=== PATIENT | female | born 1955 | race Caucasian/White ===

== ENCOUNTER → 2019-08-16 06:49 | Outpatient (CLI) | payer MEDICARE, SELFPAY ==
[2019-08-08 06:34] VITALS: BMI 18.2
--- NOTE | 2019-08-16 06:52 | CT_ITS ---
STUDY: LOW DOSE CT LUNG CANCER SCREENING REASON FOR EXAM: Female, 64 years old. 1.5 packs per day for 40 years smoking history, screening RADIATION DOSAGE (If Supplied By Facility): CTDIvol = ( 2.01 ) mGy, DLP = ( 72.48 ) mGycm TECHNIQUE: No contrast was administered. Low dose technique was utilized (average mAS-38 and kVp 120). 1.25 mm axial source images with a slice interval of 1.25-mm were reconstructed in lung windows. 2.5 mm axial source images with a slice interval of 2.5-mm were reconstructed in lung windows. 5.0 mm axial source images with a slice interval of 5.0-mm were reconstructed in soft tissue windows. Nodule measured using lung windows on PACS and/or independent workstation with automated measurement of minimum and maximum diameter. Nodule measurement reported as average diameter rounded to the nearest whole number. Growth is defined as an increase ins size of greater than 1.5 mm. COMPARISON: None. NODULES: Group of micronodules in the lateral superior right lower lobe evident on image 123 with mildly irregular margins and nodules measuring approximately 3-4 mm. Given continuity with centrilobular structures, may represent focal areas of pneumonitis. 5 mm noncalcified oval-shaped mildly irregular nodule in the right lower lobe on image 131. There is a punctate calcification along the superior border on image 131. Additional pulmonary granulomata (calcified) are identified. No additional noncalcified pulmonary nodules. Emphysema: Moderately extensive multilobar centrilobular emphysema. Endobronchial lesion: None Aorta: Moderate atherosclerosis particularly of the distal, descending thoracic aorta. Coronary arteries: Heavy atherosclerosis. Heart: Normal size Pulmonary artery: Unremarkable unopacified technique. Mediastinal nodes: No mediastinal adenopathy detected. Other chest and abdominal findings: None CT/Low Dose CT Lung Screening IMPRESSION: 1. Lung-RADS category 2 - 5 mm noncalcified nodule in the right lower lobe. Continue annual screening with LDCT in 12 months. 2. Group of bronchovascular micronodules of the right lower lobe (measuring 3 to 4 mm) more typical of pneumonitis/bronchiolitis/infection rather than neoplasm. IMPORTANT NOTES FOR USE: ACR Lung-RADS Version 1.0 Assessment Categories Release Date: February 17, 2014 Category: Coded 0-4 bases on nodule(s) with highest degree of suspicion. Negative screen is defined as categories 1 and 2; a positive screen is defined as categories 3 and 4. Category 3 and 4A nodules that are unchanged on interval CT should be coded as category 2, and individuals returned to screening in 12 months. Category 4X: Category 3 or 4 nodules with additional imaging findings that increase the suspicion of lung cancer, such as spiculation, GGN that doubles in size in 1 year, enlarged lymph notes, etc. Category Modifiers: S (significant finding unrelated to lung cancer) and C (prior history of treated lung cancer) may be added to the 0-4 Lung-RADS Electronically Signed: Flaquito Garcia MD (Brooks) at 14:19 EDT , Service support ,
--- NOTE | 2019-08-16 12:00 | PFT ---
INTRODUCTION: The patient is a 64-year-old female that presents for pulmonary function studies secondary to a diagnosis of tobacco dependency. Respiratory therapy reports good patient effort. Bronchodilators were used during testing. INTERPRETATION: Forced expiration spirometry demonstrates the presence of a mild large airways obstructive ventilatory defect. There was no significant response to aerosolized bronchodilators. Spirograms are of good quality and do not plateau indicating slow emptying of the lungs. Body plethysmography was performed and reveals lung volumes to be within normal limits. Diffusing capacity by single breath CO is preserved at 80% of predicted. IMPRESSION: Irreversible mild large airways obstructive ventilatory defect with preserved lung volumes and diffusing capacity.
== END ==
PROVIDERS: Family Provider Nurse Practitioner Family; PCP Nurse Practitioner Family; Referring Provider Internal Medicine Critical Care Medicine; Visit Provider Internal Medicine Critical Care Medicine
DX: J44.9 Chronic obstructive pulmonary disease, unspecified (principal); F17.210 Nicotine dependence, cigarettes, uncomplicated
CPT/HCPCS: 94060; 94726; 94729; G0297

== ENCOUNTER → 2019-08-19 | Outpatient (CLI) | payer MEDICARE, SELFPAY ==
[2019-08-08 06:34] VITALS: BMI 18.2
[2019-08-19 09:39] VITALS: PULSE 56; PULSE 58; PULSE 75; PULSE 77; PULSE 79; PULSE 82; PULSE 83; O2SAT 93; O2SAT 94; O2SAT 95; O2SAT 96
--- NOTE | 2019-08-19 13:24 | WT_ITS ---
PSN 6 Minute Walk Test - 6 Minute Walk Test 6 Minute Walk Test: 6 Minute Walk Test PSN:6-Minute Walk Test Start: 08/19/19 09:39 Freq: Status: Active Protocol: RESP.6MINW Document 08/19/19 09:39 [facility] (Rec: 08/19/19 09:44 [facility] [id number]) 6 Minute Walk Test Date Performed 08/19/19 Time Performed 09:15 Height 5 ft 4 in Weight: 49.442 kg Weight in Pounds 109.[address]: Eleazar Valle Assistive device used: None Pre-test Oxygen Delivery Method Room Air Pulse Ox (%) 96 Pulse Rate (60-100 beats/min) 56 L Dyspnea Deb Scale (0-10) 3 Reported Symptoms Increased Work of Breathing 1st minute Oxygen Delivery Method Room Air Pulse Ox (%) 95 Pulse Rate (60-100 beats/min) 79 Dyspnea Deb Scale (0-10) 3 Number of Rests Taken 0 Reported Symptoms Increased Work of Breathing 2nd minute Oxygen Delivery Method Room Air Pulse Ox (%) 94 Pulse Rate (60-100 beats/min) 75 Dyspnea Deb Scale (0-10) 3 Number of Rests Taken 0 Reported Symptoms Increased Work of Breathing 3rd minute Oxygen Delivery Method Room Air Pulse Ox (%) 94 Pulse Rate (60-100 beats/min) 77 Dyspnea Deb Scale (0-10) 3 Number of Rests Taken 0 Reported Symptoms Increased Work of Breathing 4th minute Oxygen Delivery Method Room Air Pulse Ox (%) 93 Pulse Rate (60-100 beats/min) 83 Dyspnea Deb Scale (0-10) 3 Number of Rests Taken 0 Reported Symptoms Increased Work of Breathing 5th minute Oxygen Delivery Method Room Air Pulse Ox (%) 94 Pulse Rate (60-100 beats/min) 82 Dyspnea Deb Scale (0-10) 3 Number of Rests Taken 0 Reported Symptoms Increased Work of Breathing 6th minute Oxygen Delivery Method Room Air Pulse Ox (%) 95 Pulse Rate (60-100 beats/min) 79 Dyspnea Deb Scale (0-10) 4 Number of Rests Taken 0 Reported Symptoms Increased Work of Breathing Post-test Oxygen Delivery Method Room Air Pulse Ox (%) 95 Pulse Rate (60-100 beats/min) 58 L Dyspnea Deb Scale (0-10) 3 Reported Symptoms Increased Work of Breathing Full Laps Walked 17 Partial Lap, Number of Tiles Walked 45 Total Distance Walked (ft) 1048 - Interpretation Interpretation: The patient was able to ambulate 1048 feet over the course of 6 minutes on room air with no assistive devices or breaks. The patient did desaturate slightly to a della of 93%. No significant tachycardia was noted. These findings are consistent with a normal size tolerance. - Recommendations Recommendations: No supplemental oxygen is indicated at this time.
== END | disposition home or self-care (01) ==
PROVIDERS: Family Provider Nurse Practitioner Family; PCP Nurse Practitioner Family; Referring Provider Internal Medicine Critical Care Medicine; Visit Provider Internal Medicine Critical Care Medicine
DX: J44.9 Chronic obstructive pulmonary disease, unspecified (principal); F17.210 Nicotine dependence, cigarettes, uncomplicated
CPT/HCPCS: 94618

== ENCOUNTER → 2021-01-25 12:37 | Outpatient (CLI) | payer MEDICARE, SELFPAY ==
[2020-12-23 12:52] VITALS: BMI 18.7
--- NOTE | 2021-01-26 06:53 | PFT ---
INTRODUCTION: The patient is a 65-year-old female that presents for pulmonary function studies secondary to a diagnosis of COPD. Respiratory therapy reports good patient effort. Bronchodilators were used during testing. INTERPRETATION: Forced expiration spirometry demonstrates the presence of a mild large airways obstructive ventilatory defect. There was no significant response to aerosolized bronchodilators. Spirograms are of good quality but do not plateau indicating slow emptying of the lungs. Body plethysmography was performed and revealed an elevated RV to 151% of predicted, indicative of underlying air trapping. Diffusing capacity by single breath CO is mildly reduced at 65% of predicted. IMPRESSION: Irreversible mild large airways obstructive ventilatory defect with associated air trapping and mild reduction in diffusing capacity.
== END ==
PROVIDERS: PCP Nurse Practitioner Family; Referring Provider Internal Medicine Critical Care Medicine; Visit Provider Internal Medicine Critical Care Medicine
DX: J44.9 Chronic obstructive pulmonary disease, unspecified (principal)
CPT/HCPCS: 94060; 94726; 94729

== ENCOUNTER → 2021-01-26 11:06 | Outpatient (CLI) | payer MEDICARE, SELFPAY ==
[2020-12-23 12:52] VITALS: BMI 18.7
[2021-01-26 11:15] VITALS: PULSE 70; PULSE 72; PULSE 76; PULSE 81; PULSE 82; PULSE 83; O2SAT 94; O2SAT 95; O2SAT 96; O2SAT 97
--- NOTE | 2021-01-26 12:45 | PCM.PSN.6M ---
PSN 6 Minute Walk Test - 6 Minute Walk Test 6 Minute Walk Test: 6 Minute Walk Test PSN:6-Minute Walk Test Start: 01/26/21 11:33 Freq: Status: Active Protocol: RESP.6MINW Document 01/26/21 11:15 [facility] (Rec: 01/26/21 11:36 [id number]) 6 Minute Walk Test Date Performed 01/26/21 Time Performed 11:15 Height 5 ft 4 in Weight: 109 lb Weight in Pounds 109.[address]: Eleazar Valle FIO2 (% Oxygen) 21 Assistive device used: None Pre-test Oxygen Delivery Method Room Air Pulse Ox (%) 96 Pulse Rate (60-100 beats/min) 70 Dyspnea Deb Scale (0-10) 0 Exertion Deb Scale (6-20) 6 1st minute Oxygen Delivery Method Room Air Pulse Ox (%) 95 Pulse Rate (60-100 beats/min) 76 2nd minute Oxygen Delivery Method Room Air Pulse Ox (%) 95 Pulse Rate (60-100 beats/min) 83 3rd minute Oxygen Delivery Method Room Air Pulse Ox (%) 94 Pulse Rate (60-100 beats/min) 83 4th minute Oxygen Delivery Method Room Air Pulse Ox (%) 95 Pulse Rate (60-100 beats/min) 76 5th minute Oxygen Delivery Method Room Air Pulse Ox (%) 96 Pulse Rate (60-100 beats/min) 82 6th minute Oxygen Delivery Method Room Air Pulse Ox (%) 96 Pulse Rate (60-100 beats/min) 81 Post-test Oxygen Delivery Method Room Air Pulse Ox (%) 97 Pulse Rate (60-100 beats/min) 72 Dyspnea Deb Scale (0-10) 1 Exertion Deb Scale (6-20) 11 Full Laps Walked 16 Partial Lap, Number of Tiles Walked 0 Total Distance Walked (ft) 944 - Interpretation Interpretation: The patient ambulated 944 feet over the course of 6 minutes beginning on room air without assistive devices or breaks. Pretesting oxygen saturation was noted to be 96% on room air. With ambulation, the della oxygen saturation was 94%. There was no significant exertional oxygen desaturation. - Recommendations Recommendations: There is no indication for the use of supplemental oxygen at this time.
== END ==
PROVIDERS: PCP Nurse Practitioner Family; Referring Provider Internal Medicine Critical Care Medicine; Visit Provider Internal Medicine Critical Care Medicine
DX: J44.9 Chronic obstructive pulmonary disease, unspecified (principal); F17.210 Nicotine dependence, cigarettes, uncomplicated
CPT/HCPCS: 94618

== ENCOUNTER → 2021-06-23 15:56 | Outpatient (CLI) | payer MEDICARE, SELFPAY ==
[2020-12-23 12:52] VITALS: BMI 18.7
--- NOTE | 2021-06-23 16:02 | CT_ITS ---
STUDY: LOW DOSE CT LUNG CANCER SCREENING REASON FOR EXAM: Female, 66 years old. 1 pack per day smoker x46 years RADIATION DOSAGE (If Supplied By Facility): CTDIvol = ( 2.01 ) mGy, DLP = ( 67.71 ) mGycm TECHNIQUE: No contrast was administered. Low dose technique was utilized (average mAS-38 and kVp 120). 1.25 mm axial source images with a slice interval of 1.25-mm were reconstructed in lung windows. 2.5 mm axial source images with a slice interval of 2.5-mm were reconstructed in lung windows. 5.0 mm axial source images with a slice interval of 5.0-mm were reconstructed in soft tissue windows. Nodule measured using lung windows on PACS and/or independent workstation with automated measurement of minimum and maximum diameter. Nodule measurement reported as average diameter rounded to the nearest whole number. Growth is defined as an increase ins size of greater than 1.5 mm. COMPARISON: 08/16/2019 FINDINGS: There is underlying emphysema with chronic interstitial changes in both lung lr. Nonspecific pleural thickening noted in the apices and in both hemithoraces. There is no organized infiltrate or effusion. Stable micronodules noted in the right lower lobe unchanged from the previous study. These measure between 3 and 4 mm. Since they are unchanged over a two-year span, no specific follow-up is needed. There are calcified coronary vessels Bony structures show extensive degenerative change CT/Low Dose CT Lung Screening IMPRESSION: Lung-RADS category 2 - Continue annual screening with LDCT in 12 months. IMPORTANT NOTES FOR USE: ACR Lung-RADS Version 1.1 Assessment Categories Release Date: 2018 Category: Coded 0-4 bases on nodule(s) with highest degree of suspicion. Negative screen is defined as categories 1 and 2; a positive screen is defined as categories 3 and 4. Category 3 and 4A nodules that are unchanged on interval CT should be coded as category 2, and individuals returned to screening in 12 months. Category 4X: Category 3 or 4 nodules with additional imaging findings that increase the suspicion of lung cancer, such as spiculation, GGN that doubles in size in 1 year, enlarged lymph notes, etc. Category Modifiers: S (significant finding unrelated to lung cancer) Electronically Signed: Aleksandr Levine MD at 17:37 EDT , Service support ,
== END ==
PROVIDERS: PCP Nurse Practitioner Family; Referring Provider Internal Medicine Critical Care Medicine; Visit Provider Internal Medicine Critical Care Medicine
DX: F17.210 Nicotine dependence, cigarettes, uncomplicated (principal); Z12.2 Encounter for screening for malignant neoplasm of respiratory organs
CPT/HCPCS: 71271

== ENCOUNTER 2025-07-16 03:07 | Inpatient (IN) | payer MEDICARE, SELFPAY ==
[2025-07-16] VITALS (54 sets, daily range): BP systolic 78–264; BP diastolic 48–152; PULSE 55–144; RESP 11–32; TEMP 35.9–38; O2SAT 90–100; BMI 20.2; BMI 20.1
--- NOTE | 2025-07-16 03:09 | EKG12_ITS ---
Test Reason : SOB Blood Pressure : */* mmHG Vent. Rate : 105 BPM Atrial Rate : 105 BPM P-R Int : 148 ms QRS Dur : 78 ms QT Int : 352 ms P-R-T Axes : 89 82 92 degrees QTcB Int : 465 ms Sinus tachycardia with Premature ventricular complexes or Fusion complexes Nonspecific ST abnormality Abnormal ECG Confirmed by David Colindres ([id number]), supervising editor trailer PETER COWAN ([id number]) on 07/17/2025 6:00:43 AM Referred By: ELIZABETH Confirmed By: David Colindres
--- NOTE | 2025-07-16 03:09 | ED.VIS.DYS ---
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 Depression Essential hypertension Myocardial fibrosis Non-rheumatic mitral regurgitation Pulmonary hypertension Pure hypercholesterolemia Home Medications ?Medication ?Instructions ?Recorded ?Last Taken ?Type aspirin 81 mg tablet,delayed 81 mg PO DAILY 07/08/19 Unknown History release (Adult Low Dose Aspirin) atorvastatin 40 mg tablet 40 mg PO QHS PRN 07/08/19 Unknown History nitroglycerin 0.4 mg sublingual 0.4 mg sublingual Q5-15M PRN chest 07/08/19 Unknown History tablet pain oxybutynin chloride 10 mg 10 mg PO DAILY 07/08/19 Unknown History tablet,extended release 24 hr venlafaxine 75 mg tablet 75 mg PO BID 07/08/19 Unknown History albuterol sulfate 90 mcg/actuation 2 puff inhalation Q4H PRN 12/23/20 Unknown Rx aerosol inhaler (Ventolin HFA) shortness of breath or wheezing #8.5 grams brimonidine 0.2 % eye drops ml ophthalmic (eye) 06/16/21 Unknown History dorzolamide 2 % eye drops 1 drp ophthalmic (eye) TID 06/16/21 Unknown History lisinopril 20 mg tablet 20 mg PO DAILY #90 tabs 06/16/21 Unknown Rx Allergy/AdvReac Type Severity Reaction Status Date / Time No Known Allergies Allergy Unverified 06/16/21 14:41 Family History Mother Diabetes Surgical History History of coronary artery stent placement (01/02/17) History of hysterectomy Social History Smoking Status: Current every day smoker tobacco type: cigarettes Tobacco: How many years used: 46 second hand exposure: Yes alcohol intake: never substance use type: does not use caffeine: Yes Type: coffee MDM MDM MDM Narrative Medical decision making narrative: HISTORY OF PRESENT ILLNESS: Chief complaint: Shortness of breath 70-year-old female history of COPD, pulm hypertension, anemia, hypertension, hypertrophic cardiomyopathy, myocardial fibrosis, CAD status post stent presents with shortness of breath. Patient is an extremis and cannot provide reliable history. Per EMS patient was initially 60% on home O2. Per EMS patient got 2 rounds of duo/nebs and 125 mg of solumedrol. REVIEW OF SYSTEMS: Unable to obtain reliable review of system secondary to altered mental status PHYSICAL EXAM: Nursing triage notes reviewed, Vital signs reviewed Constitutional: please see mdm HENT: MMM Eyes: Pupils equal round and reactive to light, Extraocular muscles intact Neck: Positive JVD Lungs: Tight lungs, wheezes/rales throughout, increased work of breathing, severe respiratory distress Heart: Reg fast regular rate Abdomen: Soft, no distention : No CVAT Extremities: No edema Neuro: Groans to painful stimuli, Skin: No rash or lesions noted MEDICAL DECISION MAKING: Chief Complaint: please see HPI External records reviewed: Reviewed prior echocardiogram from 2017 which showed ejection fraction 65%. Reviewed recent hospitalization. Patient was admitted to [facility] from 06/16/2025 until 06/25/2025 for acute on chronic respiratory failure hypoxia. Acute pulmonary edema, NSTEMI, COPD exacerbation. This time patient suffered respiratory failure required mechanical ventilation. Factors affecting care: As per HPI Social determinants of health: none History obtained from others: EMS Consults: Internal Medicine (Dr. Haile) [facility] Narrative: The patient was initially hypertensive blood pressure initially 257/98, tachypneic respirate of 30, and extreme respiratory distress with altered mental status requiring immediate airway intervention in the form endotracheal intubation. Please see below procedure note. I considered the following differential diagnosis: Flash pulmonary edema, COPD exacerbation, ACS, arrhythmia, anemia, COVID, RSV, flu, pneumonia I obtained a broad lab and imaging workup to further determine if the patient was suffering from a life-threatening etiology. Also obtained a CT scan of the head given altered mental status. CTA of the chest given extreme respiratory distress. Also obtained an ABG given requirement for intubation. ALL IMAGES (IF OBTAINED) HAVE BEEN PERSONALLY REVIEWED AND INTERPRETED BY MYSELF. EKG with sinus tachycardia rate of 105, normal axis, normal intervals, no obvious STEMI, occasional PVCs, Patient was noted to continue to be significantly hypertensive raising the specter of flash pulmonary edema. Patient was started on nitroglycerin drip at 100 mcg/min. After approximately 5 minutes on the nitroglycerin drip she continued to be hypertensive and placed out of adequate sedation so she was given 100 mg bolus of propofol, 5 mg bolus of Versed and started on Versed drip. ABG showed significant respiratory acidosis with a pH of 7.058, CO2 of 75 consistent with CO2 retention from likely COPD exacerbation CBC with leukocytosis suggestive of system inflammation, mild anemia, no thrombocytopenia BMP without significant electrolyte disturbances, no SANTO, no sign of endorgan hypoperfusion or metabolic acidosis. Serum glucose elevated BNP elevated consistent with volume overload and heart failure COVID/RSV/flu is negative LFTs with elevation in liver enzymes consistent with likely volume overload from CHF exacerbation Initial troponin elevated consistent with myocardial ischemia is likely a type II demand ischemia given hypoxia significant acidosis initial lactate elevated consistent endorgan hypoperfusion likely secondary to hypoxia Patient remained hypertensive despite propofol drip, nitroglycerin drip. She was given a dose of bicarb given acidosis and given 20 mg IV labetalol. After IV labetalol patient blood pressure crash. Blood pressure was as low as 78 systolic. This quickly rebounded to 140 systolic after discontinuing propofol drip decrease patient's tidal volume slightly. Discussed case with hospitalist Dr. Hess who agreed admit the patient as long as CT scans of head and chest did not show diagnosis that needed transfer to higher level of care. He recommended giving broad-spectrum antibiotics given SIRS and sepsis criteria. Gave vancomycin and Zosyn. Also recommend repeating ABG which was also ordered. CT of the chest was negative for acute PE, thoracic aortic aneurysm. Noted underlying for Zima, superimposed CHF, pneumonitis and bronchitis noted. CT scan of the brain showed no evidence of ICH. Patient is appropriate for admission here at [facility] to intensive care unit. Dr. Hess added on a CT scan of the abdomen pelvis is pending at this time. The procedure was performed by myself. Indications: Acute respiratory distress, altered mental status Procedure Description: Patient was preoxygenated with BiPAP. Patient in supine position. Of note during intubation white frothy pulmonary expectorate was noted in the posterior oropharynx. Use video laryngoscopy with a 4.0 hyperventilated Mac blade to place an 8.0 ET tube through the cords. First pass success. No immediate complications. Post intubation pulse ox was initially 80% but quickly improved to 100%. Post-Procedure Assessment: Tracheal intubation was confirmed with breath sounds auscultated equally bilaterally; appropriate color change with end tidal CO2 detector and waveform capnography. The patient tolerated the procedure well with no immediate complications. The patient and/or family, caregivers express understanding. The patient and/or family, caregivers agrees with the plan. Shared decision making: I will have a discussion with the patient and or visitors regarding risk/benefits of further testing or admission. They will be made aware of of the risk/benefits inherent in this decision they will be given the opportunity to voice understanding. Total critical care time today provided was at least 60 minutes. This excludes separately billable procedures. Critical care time (if documented) is secondary to the patient having high probability of clinically significant/life threatening deterioration in the patient's condition which required my urgent intervention. Impression: 1. Acute hypoxic respiratory failure 2. Hypertensive emergency 3. Flash pulmonary edema 4. COPD exacerbation Dispo: Admit to ICU This note was generated with [employer] dictation software. It may contain incorrect words, spelling, and punctuation that were not noted in review of the chart prior to signing. Discharge Plan Triage Chief Complaint: Shortness of Breath ED Provider: Bernardo Sharif Dx/Rx/DC Orders Prescriptions: No Action nitroglycerin 0.4 mg tablet, sublingual 0.4 mg SUBLINGUAL Q5-15M PRN (Reason: chest pain) aspirin [Adult Low Dose Aspirin] 81 mg tablet,delayed release (DR/EC) 81 mg PO DAILY atorvastatin 40 mg tablet 40 mg PO QHS PRN venlafaxine 75 mg tablet 75 mg PO BID oxybutynin chloride 10 mg tablet extended release 24hr 10 mg PO DAILY albuterol sulfate [Ventolin HFA] 90 mcg/actuation HFA aerosol inhaler 2 puff INHALATION Q4H PRN (Reason: shortness of breath or wheezing) Qty: 8.5 6RF brimonidine 0.2 % drops ophthalmic (eye) dorzolamide 2 % drops 1 drp ophthalmic (eye) TID lisinopril 20 mg tablet 20 mg PO DAILY Qty: 90 3RF Primary Care Provider: Melissa Ozuna NP Referrals: Melissa Ozuna NP, [employer] [Primary Care Provider, Family Practice] Print Language: Vietnamese
--- NOTE | 2025-07-16 03:25 | CT_ITS ---
EXAM: NONCONTRAST CT SCAN OF THE HEAD CLINICAL HISTORY: AMS COMPARISON: None TECHNIQUE: Serial axial series through the head were obtained without contrast. 2-D coronal and sagittal reformats were then obtained. DLP = 745 mGy-cm FINDINGS: Brain: There is no acute large territorial infarct, intracranial hemorrhage, midline shift or mass effect. There are atherosclerotic vascular calcifications involving the bilateral carotid siphons. The sella and pineal gland regions appear unremarkable. There is low-density in the deep white matter on the right and left, and in the right occipital lobe consistent with chronic ischemic change. There is no evidence of cerebellar tonsillar herniation. Ventricles: There is no acute hydrocephalus. Basilar cisterns are patent. Paranasal sinuses: Well-aerated Mastoid air cells: Well-aerated. Calvarium: The bony calvarium is intact. Orbits: The bilateral globes are symmetric, without retrobulbar compressive mass lesion or hemorrhage. CT/Brain/Head without Contrast IMPRESSION: There is low-density in the deep white matter on the right and left, and in the right occipital lobe consistent with chronic ischemic change. No acute intracranial pathology. Consider MRI with diffusion scan, or CT perfu savita to exclude an acute component. Reading Location: [facility]
--- NOTE | 2025-07-16 03:25 | CT_ITS ---
PROCEDURE: CTA CHEST W/WO CONTRAST 07/16/2025 REASON FOR EXAM: HYPOXIA TECHNIQUE: Procedure Code: [id number] Modality: CT Procedure: CTA CHEST W/WO CONTRAST Multiplanar Sagittal and Coronal images were obtained. CONTRAST: Isovue 370 VOLUME: 100 mL One or more dose reduction techniques were used (e.g., Automated exposure control, adjustment of the mA and/or kV according to patient size, use of iterative reconstruction technique). RADIATION DOSE SUMMARY: CTDlvol: 25.23 mGy DLP: 345.21 mGycm COMPARISON: No recent studies, previous chest CT from 2020 # of known CTs in the past 12 months: 0 # of known Cardiac Nuclear Medicine Studies in the past 12 months: 0 FINDINGS: Patient is intubated, tip of the ET tube is in the right mainstem bronchus and should be retracted 3-4 cm. NG tube tip is in the body of the stomach The pulmonary arteries enhance avidly. No evidence of low-density filling defect to suspect PE. Peripheral calcifications are noted in the thoracic aorta no demonstrated aneurysm I can not evaluate for dissection due to lack of IV contrast within the majority of the thoracic aorta. There are calcified coronary vessels. Lung windows show underlying emphysema with superimposed interstitial edema and chronic interstitial changes with free-flowing bilateral pleural effusions, and bibasilar atelectasis with diffuse peribronchial thickening. Findings suggest a combination of CHF and superimposed bronchitis and pneumonitis. The soft tissue windows show a normal-appearing thyroid gland. No suspicious axillary, mediastinal or perihilar adenopathy. Bony structures show degenerative change. Limited cuts through the upper abdomen show diffuse atherosclerotic calcifications and nonobstructing bilateral renal stones. CT/CTA Chest W/WO Contrast IMPRESSION: No demonstrated PE, or thoracic aortic aneurysm Underlying emphysema with superimposed CHF, pneumonitis, bronchitis, free-flowi ng bilateral pleural effusions and bibasilar atelectasis ETT tip is in the right mainstem bronchus and should be retracted 3-4 cm, NG tu be tip in satisfactory position No suspicious adenopathy Degenerative bony changes [place] Alert: ET tube tip in the SADAF The critical findings in the findings and impression above were relayed directl y by me by telephone to Bernardo Sharif on 07/16/2025 at 6:56 am with readback verification. Reading Location: [id number]
[2025-07-16] MEDS: fentaNYL 100 MCG/2 ML Ampul IV ×2 (03:35→06:38)
[2025-07-16 03:46] LABS: Hematocrit 37.9 % (37-47); Hemoglobin 11.6 g/dL (12.0-15.0); Immature Granulocytes Count 0.380 X10^3/uL (0.0-0.0); Mean Corp Hgb Conc 30.6 g/dL (32-36); Mean Corpuscular Volume 95.9 fL (81-99); Mean Platelet Vol. 9.7 fl (6.2-12.0); NRBC Flagged by Analyzer 0 % (0-5); POSITIVE DIFFERENTIAL YES; Platelet Count 411 K/mm3 (150-450); RBC Distribution Width CV 14.6 % (11.6-14.6); RBC Distribution Width SD 51.3 fl (35.1-43.9); Red Blood Count 3.95 M/mm3 (4.2-5.4); White Blood Count 13.1 K/mm3 (4.4-11.0)
--- OUTSIDE RECORDS SUMMARY | 2025-07-16 03:46 | XMS RPT_ITS | CCD ---
Author Organization [facility] Informat ion Partnership TRANSPLANT IMMUNOLOGIST [facility] Care Team Providers Care Real Estate Management Specialist Name Role Phone Opal Brambila Alpa Unavailable Unavailable FERCHO VILLASEÑOR Primary Care Physician Marissa Rounding Nurse, Amaury Unavailable Barb Ernandez Unavailable Unavailable Elvin Blanc PA-C Primary Care Provider Fercho Villaseñor DO Unavailable JACK CARMICHAEL DO Attending Unavailable JACK CARMICHAEL DO Attending Unavailable DO FERCHO VILLASEÑOR Primary Care Unavailab radha NUR MD, BRONWYN Consulting Unavailable RYAN PERERA Attending Unavailable ANNIE PAREDES, JHONNY Admitting Unavailable RYAN PERERA Consulting Unavailable DIEUDONNE PAREDES, ROSINA Consulting Unavailable CEZAR PAREDES, TONG Consulting Unavailable Marizol MANAGER MARIT[employer]PUTTY GLAZER, Susan B Primary Care Provider RICKY JOHNSON-APRIL, ALFONSO Lora Primary Care Physician ALFONSO OZUNA Consulting Unavailable ASTRID ROBERT MD Admitting UnavailASTRID Navarro MD Attending UnavailASTRID Navarro MD Primary Care Unavailabl e PROVIDER, UNKNOWN Consulting Unavailable ALFONSO OZUNA Consulting Unavailable NANCY RIVAS MD Attending Unavailable NANCY RIVAS MD Primary Care Unavailable NANCY RIVAS MD Admitting Unavailable PROVIDER, UNKNOWN Consulting Unavailable ALFONSO OZUNA Referring Unavailable ALFONSO OZUNA Consulting Unavailable NANCY RIVAS MD Attending Unavailable NANCY RIVAS MD Primary Care Unavailable NANCY RIVAS MD Admitting Unavailable PROVIDER, UNKNOWN Consulting Unavailable RICKY, ALFONSO Consulting Unavailable ASTRID ROBERT MD Attending Unavailabl ASTRID Moran MD Primary Care Unavailabl e ASTRID ROBERT MD Admitting Unavailabl e PROVIDER, UNKNOWN Consulting Unavailable RICKY, ALFONSO Consulting Unavailable RICKY, ALFONSO Referring Unavailable KRYSTIAN STEELE MD Admitting Unavailable KRYSTIAN STEELE MD Attending Unavailable KRYSTIAN STEELE MD Primary Care Unavailable PROVIDER, UNKNOWN Consulting Unavailable RICKY, ALFONSO Consulting Unavailable RICKY, ALFONSO Referring Unavailable JACK CARMICHAEL DO Attending Unavailable JACK CARMICHAEL DO Primary Care Unavailable JACK CARMICHAEL DO Admitting Unavailable PROVIDER, UNKNOWN Consulting Unavailable RICKY, ALFONSO Consulting Unavailable RICKY, ALFONSO Referring Unavailable JACK CARMICHAEL DO Attending Unavailable JACK CARMICHAEL DO Primary Care Unavailable JACK CARMICHAEL DO Admitting Unavailable PROVIDER, UNKNOWN Consulting Unavailable RICKY, ALFONSO Referring Unavailable RICKY, ALFONSO Consulting Unavailable JOSS ARMANDO MD Attending Unavailable JOSS ARMANDO MD Primary Care Unavailable JOSS ARMANDO MD Admitting Unavailable PROVIDER, UNKNOWN Consulting Unavailable RICKY, ALFONSO Consulting Unavailable CLAUDE MEADOWS MD Attending Unavailable CLAUDE MEADOWS MD Primary Care Unavailable CLAUDE MEADOWS MD Admitting Unavailable PROVIDER, UNKNOWN Consulting Unavailable RICKY, ALFONSO Consulting Unavailable ASTRID ROBERT MD Admitting Unavailabl e ASTRID ROBERT MD Attending Unavailabl e ASTRID ROBERT MD Primary Care Unavailabl e PROVIDER, UNKNOWN Consulting Unavailable ANNIE PAREDES, JHONNY Admitting Unavailable ALIS PAREDES, DR LONG Attending Unavailable EMILIO DERAS MD Consulting Unavailable RICKY MANAGER [employer]IT[employer]PUTTY GLAZER, ALFONSO K Primary Care Unavaila joe BRO MD, ROSINA Consulting Unavailable ROXIE MOREJON, JACQUELINE Red Consulting Unavailable ANNIE PAREDES, JHONNY Admitting Unavailable PAPI BAXTER MD Attending Unavailab radha SANTIAGO MD, DR GAN Consulting Unavailable RICKY MANAGER MARITIME[employer]PUTTY GLAZER, ALFONSO K Primary Care Unavaila GENNY Colindres MD Consulting Unavailable ROSINA BRO MD Consulting Unavailable NORMA HAMILTON MD Consulting Unavailable OWEN BERNAL MD Consulting Unavailable SUSAN FONTANA Attending Unavailable SUSAN FONTANA Primary Care Unavailable Allergies Allergy Classification Reported Allergen(s) Allergy Type Date of Onset Reaction(s) Facility (2 sources) NKDA; 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: [NKDA] allergy to substance 7 [employer] Work Phone: [phone] NEGATED: Highlighted row has been ruled out! (1 source) Observed no known allergies at [facility] No Known Allergies 7 propensity to adverse reactions [employer] Work Phone: [phone] Medications Current Medications Medication Drug Class(es) Dates Sig (Normalized) Sig (Original) albuterol MDI (90 mcg/inh) CFC free inhalation aerosol (3 sources) Start: 09-06-2023 take 1 puff(s) by inhalation every four hours as needed for wheezing albuterol MDI (90 mcg/inh) CFC free inhalation aerosol 1 puff(s), Inhalation, q4h, PRN as needed for wheezing, # 8.5 gram(s), 3 Refill(s), Pharmacy: [facility], 157.5, cm, 09/02/23 6:47:00 EST, Height, kg, 09/02/23 6:47:00 EST, Dosing Weight Start Date: 09/06/23 Status: Ordered Medication Dispense Status: Completed Quantity: 8.5 Unit: g Total Allowed Fills: 4 Fills Dispensed: 0 Start: 09-06-2023 take 1 puff(s) by in halation every four hours as needed for wheezing albuterol MDI (90 mcg/inh) CFC free inhalation aerosol 1 puff(s), Inhalation, q4h, PRN as needed for wheezing, # 8.5 gram(s), 3 Refill(s), Pharmacy: [facility], 157.5, cm, 09/02/23 6:47:00 EST, Height, kg, 09/02/23 6:47:00 EST, Dosing Weight Start Date: 09/06/23 Status: Ordered Quantity: 8.5 Unit: g Repeat number: 4 Start: 09-06-2023 take 1 puff(s) by in halation every four hours as needed for wheezing albuterol MDI (90 mcg/inh) CFC free inhalation aerosol 1 puff(s), Inhalation, q4h, PRN as needed for wheezing, # 8.5 gram(s), 3 Refill(s), Pharmacy: [facility], 157.5, cm, 09/02/23 6:47:00 EST, Height, kg, 09/02/23 6:47:00 EST, Dosing Weight Start Date: 09/06/23 Status: Ordered aspirin 81 mg delayed release oral tablet (6 sources) Nonsteroidal Anti-inflammatory Drug Start: 06-25-2025 End: 06-20-2026 aspirin 81 mg oral delayed release tablet Dose : 81 mg = 1 tab(s), Oral, Daily, # 90 tab(s), 3 Refill(s), Pharmacy: [facility], 160, cm, 06/16/25 9:24:00 EDT, Height, kg, 06/16/25 9:24:00 EDT, Dosing Weight Start Date: 06/25/25 Stop Date: 06/20/26 Status: Ordered Medication Dispense Status: Completed Quantity: 90.0 Unit: tab(s) Total Allowed Fills: 4 Fills Dispensed: 0 Start: 01-06-2017 aspirin 81 mg oral delayed release tablet Dose : 81 mg = 1 tab(s), Oral, Daily, 0 Refill(s) Start Date: 09/03/23 Status: Ordered Repeat number: 1 buPROPion hydrochloride 100 mg oral tablet (1 source) Aminoketone Start: 06-23-2011 take 1 dose by mouth once daily Wellbutrin SR Dose : 100 mg =, Oral, qDay, 0 Refill(s) Start Date: 06/23/11 Status: Ordered carvedilol 6.25 mg oral tablet (2 sources) alpha-Adrenergic Cherelle, beta-Adrenergic Cherelle Start: 11-28-2024 Coreg 6.25 mg oral tablet Dose : 6.25 mg = 1 tab(s), Oral, BID, # 180 tab(s), 0 Refill(s), Pharmacy: [facility], 157.5, cm, 11/04/24 11:10:00 EST, Height, kg, 11/04/24 11:10:00 EST, Dosing Weight Start Date: 11/28/24 Status: Ordered Medication Dispense Status: Completed Quantity: 180.0 Unit: tab(s) Total Allowed Fills: 1 Fills Dispensed: 0 Start: 01-22-2024 Coreg 6.25 mg oral tablet Dose : 6.25 mg = 1 tab(s), Oral, BID, # 180 tab(s), 3 Refill(s), Pharmacy: [facility], 157.5, cm, 01/22/24 16:06:00 EDT, Height, kg, 01/22/24 16:06:00 EDT, Dosing Weight Start Date: 01/22/24 Status: Ordered Quantity: 180.0 Unit: tab(s) Repeat number: 4 clopidogrel 75 mg oral tablet (6 sources) [id number] Platelet Inhibitor Start: 06-25-2025 End: 06-20-2026 Plavix 75 mg oral tablet Dose : 75 mg = 1 tab(s), Oral, qDay, # 90 tab(s), 3 Refill(s), Pharmacy: [facility], 160, cm, 06/16/25 9:24:00 EDT, Height, kg, 06/16/25 9:24:00 EDT, Dosing Weight Start Date: 06/25/25 Stop Date: 06/20/26 Status: Ordered Medication Dispense Status: Completed Quantity: 90.0 Unit: tab(s) Total Allowed Fills: 4 Fills Dispensed: 0 Start: 11-09-2024 Plavix 75 mg o ral tablet Dose : 75 mg = 1 tab(s), Oral, qDay, 0 Refill(s) Start Date: 11/09/24 Status: Ordered Repeat number: 1 Start: 01-12-2017 Plavix 75 mg o ral tablet Dose : 75 mg = 1 tab(s), Oral, qDay, # 30 tab(s), 3 Refill(s), Pharmacy: [facility], 157.5, cm, 09/02/23 6:47:00 EST, Height, kg, 09/02/23 6:47:00 EST, Dosing Weight Start Date: 09/06/23 Status: Ordered ezetimibe 10 mg oral tablet (2 sources) Dietary Cholesterol Absorption Inhibitor Start: 05-16-2025 Zetia 10 mg oral ta blet Dose : 10 mg = 1 tab(s), Oral, qDay, appt needed for further refills, # 90 tab(s), 0 Refill(s), Pharmacy: [facility], 157.5, cm, 03/05/25 15:36:00 EDT, Height, kg, 03/05/25 15:36:00 EDT, Dosing Weight Start Date: 05/16/25 Status: Ordered Medication Dispense Status: Completed Quantity: 90.0 Unit: tab(s) Total Allowed Fills: 1 Fills Dispensed: 0 Start: 09-02-2024 Zetia 10 mg or al tablet Dose : 10 mg = 1 tab(s), Oral, qDay, # 90 tab(s), 1 Refill(s), Pharmacy: [facility], 157.5, cm, 02/22/24 16:04:00 EDT, Height, kg, 02/22/24 16:04:00 EDT, Dosing Weight Start Date: 09/02/24 Status: Ordered Quantity: 90.0 Unit: tab(s) Repeat number: 2 30 actuat fluticasone furoate 0.1 mg/actuat / umeclidinium 0.0625 mg/actuat / vilanterol 0.025 mg/actuat dry powder inhaler (2 sources) Anticholinergic, Corticosteroid, beta2-Adrenergic Agonist take 3 puff(s) by inhalation once daily izqymrpmwee-drmfnrzoa-atuqnhhz (Trelegy Ellipta) 100-62.5-25 mcg blister with device Inhale 3 puffs once daily. Active furosemide 40 mg oral tablet (6 sources) Loop Diuretic Sta rt: 5 End : Lasix 40 mg oral tablet Dose : 40 mg = 1 tab(s), Oral, qDay, # 90 tab(s), 1 Refill(s), Pharmacy: [facility], 160, cm, 06/16/25 9:24:00 EDT, Height, kg, 06/16/25 9:24:00 EDT, Dosing Weight Start Date: 06/25/25 Stop Date: 12/22/25 Status: Ordered Medication Dispense Status: Completed Quantity: 90.0 Unit: tab(s) Total Allowed Fills: 2 Fills Dispensed: 0 Start: 11-06-2024 Lasix 20 mg or al tablet Dose : 20 mg = 1 tab(s), Oral, BID, 0 Refill(s) Start Date: 11/06/24 Status: Ordered Repeat number: 1 Start: 09-06-2023 End: 09-18-2023 take 1 tablet by mouth once daily furosemide (Lasix) 20 mg tablet Indications: Congestive heart failure, unspecified HF chronicity, unspecified heart failure type Take 1 tablet (20 mg) by mouth once daily. 90 tablet 3 09/18/2023 Active losartan potassium 50 mg oral tablet (2 sources) Angiotensin 2 Receptor Cherelle Start: 10-03-2024 End: 11-07-2025 losartan 50 mg oral tablet Dose : 50 mg = 1 tab(s), Oral, Daily, # 100 tab(s), 0 Refill(s) Start Date: 11/06/24 Status: Ordered Quantity: 100.0 Unit: tab(s) Repeat number: 1 montelukast 10 mg oral tablet (3 sources) Leukotriene Receptor Antagonist Start: 10-03-2024 End: 04-01-2025 Singulair 10 mg oral tablet Dose : 10 mg = 1 tab(s), Oral, qDay, 0 Refill(s) Start Date: 11/05/24 Status: Ordered Medication Dispense Status: Completed Total Allowed Fills: 1 Fills Dispensed: 0 OXcarbazepine 150 mg oral tablet (1 source) Anti-epileptic Agent Start: 06-23-2011 take 1 dose by mouth once daily at bedtime Trileptal Dose : 150 mg =, Oral, qHS, 0 Refill(s) Start Date: 06/23/11 Status: Ordered 24 hr oxybutynin chloride 10 mg extended release oral tablet (4 sources) Cholinergic Muscarinic Antagonist Start: 11-06-2024 take 1 tablet by mouth every hour, then take 1 tablet by mouth once daily oxybutynin 10 mg/24 hr oral tablet, extended release Dose : 10 mg = 1 tab(s), Oral, qDay, # 30 tab(s), 0 Refill(s) Start Date: 11/06/24 Status: Ordered Medication Dispense Status: Completed Quantity: 30.0 Unit: tab(s) Total Allowed Fills: 1 Fills Dispensed: 0 Start: 01-06-2017 take 1 tablet by santos once daily OXYBUTYNIN CHLORIDE ER 10 MG [id number] One tablet by mouth daily (HOLD) OXYBUTYNIN CHLORIDE [id number] Sharron Nguyen RN microencapsulated potassium chloride 20 meq extended release oral tablet (2 sources) Start: 06-20-2024 Klor-Con M20 o ral tablet, extended release Dose : 20 mEq = 1 tab(s), Oral, BID, # 60 tab(s), 5 Refill(s), Pharmacy: [facility], 157.5, cm, 02/22/24 16:04:00 EDT, Height, kg, 02/22/24 16:04:00 EDT, Dosing Weight Start Date: 06/20/24 Status: Ordered Medication Dispense Status: Completed Quantity: 60.0 Unit: tab(s) Total Allowed Fills: 6 Fills Dispensed: 0 predniSONE 10 mg oral tablet (1 source) Start: 06-25-2025 End: 06-28-2025 predniSONE 10 mg oral tablet Dose : 10 mg = 1 tab(s), Oral, qDay, # 3 tab(s), 0 Refill(s), Pharmacy: [facility], 160, cm, 06/16/25 9:24:00 EDT, Height, kg, 06/16/25 9:24:00 EDT, Dosing Weight Start Date: 06/25/25 Stop Date: 06/28/25 Status: Ordered Medication Dispense Status: Completed Quantity: 3.0 Unit: tab(s) Total Allowed Fills: 1 Fills Dispensed: 0 rosuvastatin calcium 40 mg oral tablet (5 sources) HMG-CoA Reductase Inhibitor Start: 11-05-2024 Crestor 40 mg oral tablet Dose : 40 mg = 1 tab(s), Oral, Daily, 0 Refill(s) Start Date: 11/05/24 Status: Ordered Medication Dispense Status: Completed Total Allowed Fills: 1 Fills Dispensed: 0 Start: 09-06-2023 rosuvastatin 2 0 mg oral tablet Dose : 40 mg = 2 tab(s), Oral, qDay, # 60 tab(s), 3 Refill(s), Pharmacy: [facility], 157.5, cm, 09/02/23 6:47:00 EST, Height, kg, 09/02/23 6:47:00 EST, Dosing Weight Start Date: 09/06/23 Status: Ordered sacubitril 97 mg / valsartan 103 mg oral tablet (3 sources) Angiotensin 2 Receptor Cherelle Start: 05-15-2025 take 1 tablet by mouth twice daily Entresto 97 mg-103 mg oral tablet Dose = 1 tab(s), Oral, BID, # 180 tab(s), 2 Refill(s), Pharmacy: [facility], 157.5, cm, 03/05/25 15:36:00 EDT, Height, kg, 03/05/25 15:36:00 EDT, Dosing Weight Start Date: 03/06/25 Status: Ordered Medication Dispense Status: Completed Quantity: 180.0 Unit: tab(s) Total Allowed Fills: 3 Fills Dispensed: 0 Start: 01-22-2024 take 1 tablet by santos th twice daily Entresto 49 mg-51 mg oral tablet Dose = 1 tab(s), Oral, BID, # 180 tab(s), 3 Refill(s), Pharmacy: [facility], 157.5, cm, 01/22/24 16:06:00 EDT, Height, kg, 01/22/24 16:06:00 EDT, Dosing Weight Start Date: 01/22/24 Status: Ordered Quantity: 180.0 Unit: tab(s) Repeat number: 4 Start: 09-06-2023 take 1 tablet by santos th twice daily Entresto 24 mg-26 mg oral tablet Dose = 1 tab(s), Oral, BID, # 60 tab(s), 3 Refill(s), Pharmacy: [facility], 157.5, cm, 09/02/23 6:47:00 EST, Height, kg, 09/02/23 6:47:00 EST, Dosing Weight Start Date: 09/06/23 Status: Ordered spironolactone 25 mg oral tablet (1 source) Aldosterone Antagonist Start: 06-25-2025 End: 06-20-2026 Aldactone 25 mg oral tablet Dose : 25 mg = 1 tab(s), Oral, qDayM, # 90 tab(s), 3 Refill(s), Pharmacy: [facility], 160, cm, 06/16/25 9:24:00 EDT, Height, kg, 06/16/25 9:24:00 EDT, Dosing Weight Start Date: 06/25/25 Stop Date: 06/20/26 Status: Ordered Medication Dispense Status: Completed Quantity: 90.0 Unit: tab(s) Total Allowed Fills: 4 Fills Dispensed: 0 Trelegy Ellipta 100 mcg-62.5 mcg-25 mcg/inh inhalation powder (1 source) Start: 09-06-2023 take 1 dose by mouth once daily Trelegy Ellipta 100 mcg-62.5 mcg-25 mcg/inh inhalation powder Dose = 1 puff(s), Inhalation, qDay, at the same time every day. Following administration, rinse mouth with water after use (do not swallow)., # 60 EA, 3 Refill(s), Pharmacy: [facility], 157.5, cm, 09/02/23 6:47:00 EST, Height, kg, 09/02/23 6:47:00 EST, Dosing Weight Start Date: 09/06/23 Status: Ordered Completed/Discontinued Medications Medication Drug Class(es) Dates Sig (Normalized) Sig (Original) ALBUTEROL SULFATE (3 sources) beta2-Adrenergic Agonist Start: 01-12-2017 PROVENTIL HFA 108 (90 Base) MCG/ACT AERS every 6 hrs as needed ALBUTEROL SULFATE [id number] Juanjo Marr MD take 2 puff(s) by in halation four times daily albuterol 90 mcg/actuation inhaler Inhal e 2 puffs 4 times a day. Active atorvastatin 40 mg oral tablet (1 source) HMG-CoA Reductase Inhibitor Start: 01-06-2017 take 1 tablet by mouth once daily ATORVASTATIN CALCIUM 40 MG TABS One tablet by mouth daily ATORVASTATIN CALCIUM [id number] Rashida Hampton RN Labetalol (1 source) beta-Adrenergic Cherelle Start: 11-05-2024 End: 11-05-2024 labetalol Start: 11/05/24 8:30:00 AM EST, Dose = 10 mg, = 2 mL, IV Push, Once, Stop: 11/05/24 8:34:27 AM EST, 11/05/24 8:26:00 EST Start Date: 11/05/24 Stop Date: 11/05/24 Status: Completed Repeat number: 1 24 hr metoprolol succinate 25 mg extended release oral tablet (11 sources) beta-Adrenergic Cherelle Start: 06-20-2025 End: 08-30-2025 take 1 tablet by mouth in the morning metoprolol succinate 25 mg oral TABLET extended release Start: 06/21/25 8:00:00 AM EDT, Dose = 12.5 mg, = 0.5 tab(s), Oral, give with food, 06/20/25 10:29:00 EDT Start Date: 06/21/25 Stop Date: 06/21/25 Status: Completed Medication Dispense Status: Completed Total Allowed Fills: 1 Fills Dispensed: 0 Start: 09-06-2023 metoprolol suc cinate 25 mg oral TABLET extended release Dose : 25 mg = 1 tab(s), Oral, BIDM, # 60 tab(s), 3 Refill(s), Pharmacy: [facility], 157.5, cm, 09/02/23 6:47:00 EST, Height, kg, 09/02/23 6:47:00 EST, Dosing Weight Start Date: 09/06/23 Status: Ordered Start: 09-04-2023 End: 09-06-2023 metoprolol succinate 25 mg o ral TABLET extended release Start: 09/06/23 8:00:00 AM EST, Dose = 25 mg, = 1 tab(s), Oral, give with food, 0, 09/03/23 10:39:00 EST Start Date: 09/06/23 Stop Date: 09/06/23 Status: Completed Start: 01-06-2017 take 1 tablet by santos th twice daily METOPROLOL TARTRATE 25 MG TABS One tablet by mouth twice daily METOPROLOL TARTRATE [id number] Rashida Hampton RN Start: 01-06-2017 take 0.5 tablet by m outh once daily METOPROLOL SUCCINATE ER 25 MG [id number] One-half tablet by mouth daily METOPROLOL SUCCINATE [id number] Juanjo Marr MD nitroglycerin 0.4 mg sublingual tablet (1 source) Nitrate Vasodilator Start: 01-12-2017 NITROGLYCE RIN 0.4 MG SUBL 1 tablet under the tongue every 5 minutes times 3 as needed for chest pain. NITROGLYCERIN [id number] Juanjo Marr MD Problems Active Problems Problem Classification Problem Date Documented Date Episodic/Chronic Acute myocardial infarction (3 sources) Non-ST elevation (NSTEMI) myocardial infarction; 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: [Non-ST elevation (NSTEMI) myocardial infarction] Onset: 06-16-2025 Chronic Anxiety disorders (3 sources) Anxiety disorder; 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: [Anxiety disorder, unspecified] Onset: 10-03-2024 Chronic Cardiac dysrhythmias (4 sources) Unspecified atrial fibrillation; 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: [Atrial premature depolarization] Onset: 11-04-2024 Chronic Chronic obstructive pulmonary disease and bronchiectasis (11 sources) Acute exacerbation of chronic obstructive airways disease; 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: [Chronic obstructive pulmonary disease with (acute) exacerbation] Onset: 10-03-2024 Chronic Conduction disorders (2 sources) Second degree atrioventricular block; 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: [Atrioventricular block, second degree] Onset: 06-16-2025 Chronic Congestive heart failure; nonhypertensive (18 sources) Heart failure; 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: [Heart failure, unspecified] Onset: 10-03-2024 Chronic Coronary atherosclerosis and other heart disease (13 sources) Atherosclerotic heart disease of [place] coronary artery without angina pectoris; 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: [Coronary arteriosclerosis] Onset: 01-06-2017 01-06-2017 Chronic Deficiency and other anemia (1 source) Anemia; 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: [Anemia, unspecified] Episodic Diabetes mellitus without complication (1 source) Type 2 diabetes mellitus without complications; 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: [Type 2 diabetes mellitus without complications] Onset: 11-04-2024 Chronic Diseases of white blood cells (1 source) Elevated white blood cell count, unspecified; 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: [Elevated white blood cell count, unspecified] Onset: 06-16-2025 Chronic Disorders of lipid metabolism (5 sources) Hyperlipidemia; 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: [Hyperlipidemia, unspecified] Onset: 01-06-2017 01-06-2017 Chronic Esophageal disorders (2 sources) Gastroesophageal reflux disease without esophagitis; 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: [Gastro-esophageal reflux disease without esophagitis] Onset: 11-04-2024 Chronic Essential hypertension (8 sources) Essential hypertension; 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: [Essential (primary) hypertension] Onset: 10-03-2024 09-18-2023 Chronic Heart valve disorders (5 sources) Mitral valve disorder; 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: [Nonrheumatic mitral (valve) insufficiency] Onset: 01-06-2017 01-06-2017 Chronic Hypertension with complications and secondary hypertension (3 sources) Hypertensive heart failure; 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: [Hypertensive heart disease with heart failure] Onset: 10-03-2024 Chronic Mood disorders (4 sources) Bipolar disorder; 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: [Bipolar disorder, unspecified] Onset: 11-04-2024 Chronic Other and ill-defined heart disease (1 source) Takotsubo cardiomyopathy; 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: [Takotsubo syndrome] Chronic Other and ill-defined heart disease (1 source) Cardiomegaly; 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: [Cardiomegaly] Chronic Other and ill-defined heart disease (1 source) Heart disease; 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: [Other ill-defined heart diseases] Chronic Other and ill-defined heart disease (1 source) Takotsubo syndrome; 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: [Takotsubo syndrome] Onset: 11-04-2024 Chronic Other hematologic conditions (1 source) Thrombocytosis; 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: [Thrombocytosis, unspecified] Episodic Other liver diseases (1 source) High enzyme level in serum; 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: [Elevation of levels of lactic acid dehydrogenase [LDH]] Episodic Other liver diseases (1 source) Enzyme level - finding; 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: [Abnormal levels of other serum enzymes] Episodic Other lower respiratory disease (1 source) Chronic pulmonary edema; 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: [Chronic pulmonary edema] Chronic Other lower respiratory disease (1 source) Acute pulmonary edema; 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: [Acute pulmonary edema] Episodic [place]-; endo-; and myocarditis; cardiomyopathy (5 sources) Hypertrophic cardiomyopathy; 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: [Cardiomyopathy] Onset: 01-06-2017 01-06-2017 Chronic Personality disorders (1 source) Personality disorder; 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: [Personality disorder, unspecified] Chronic Residual codes; unclassified (1 source) Restlessness and agitation; 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: [Restlessness and agitation] Onset: 11-04-2024 Chronic Residual codes; unclassified (1 source) Tobacco user; 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: [Tobacco use] Episodic Residual codes; unclassified (1 source) H/O: deliberate self harm; 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: [Personal history of suicidal behavior] Episodic Residual codes; unclassified (1 source) Disorientated; 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: [Disorientation, unspecified] Episodic Respiratory failure; insufficiency; arrest (adult) (7 sources) Wqitk-ag-gfnodjr respiratory failure; 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: [Acute and chronic respiratory failure with hypercapnia] Onset: 10-03-2024 Chronic Screening or history of mental health and substance abuse (2 sources) Tobacco dependence syndrome; 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: [Nicotine dependence, unspecified, uncomplicated] Onset: 01-12-2017 01-12-2017 Chronic Septicemia (except in labor) (1 source) Sepsis; 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: [Other specified sepsis] Episodic Substance-related disorders (3 sources) Nicotine dependence, unspecified, uncomplicated; 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: [Nicotine dependence, cigarettes, uncomplicated] Onset: 10-03-2024 Chronic Syncope (2 sources) Syncope and collapse; 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: [Syncope] Onset: 01-06-2017 01-06-2017 Episodic Unclassified (1 source) Placement of stent in coronary artery ; 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: [Presence of cardiac and vascular implant and graft, unspecified] Onset: 01-06-2017 01-06-2017 Unclassified (1 source) Elevation of levels of liver transaminase levels; 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: [Elevation of levels of liver transaminase levels] Onset: 10-03-2024 Unclassified (1 source) Patient's other noncompliance with medication regimen for other reason; 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: [Patient's other noncompliance with medication regimen for other reason] Onset: 06-16-2025 Unclassified (1 source) Encounter for screening for COVID-19; 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: [Encounter for screening for COVID-19] Onset: 06-16-2025 Unclassified (1 source) Acidosis, unspecified; 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: [Acidosis, unspecified] Onset: 11-04-2024 Past or Other Problems Problem Classification Problem Date Documented Da te Episodic/Chronic Acute and unspecified renal failure (2 sources) Acute kidney failure, unspecified; 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: [Acute kidney failure, unspecified] Onset: 10-03-2024 Episodic Coronary atherosclerosis and other heart disease (2 sources) Coronary angioplasty status; 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: [Presence of coronary angioplasty implant and graft] Onset: 10-09-2024 Episodic Deficiency and other anemia (1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 Normal 0.0-2.5 [facility] Comment on above: Performed By: #### A PTT #### [address] [address] Eosinophil, Absolute 0.2 10 3/mcL Normal 0.0-0.7 [facility] Comment on above: Performed By: #### A PTT #### [address] [address] Eosinophils/100 WBC (Bld) 2.0 % Normal 0.0-6.0 [facility] Comment on above: Performed By: #### A PTT #### [place] [id number] [place] [address] Lymphocyte, Absolute 3.7 10 3/mcL Normal 0.9-4.3 [facility] Comment on above: Performed By: #### A PTT #### [address] [address] Lymphocytes/100 WBC (Bld) 31.3 % Normal 20.0-40.0 [facility] Comment on above: Performed By: #### A PTT #### [address] [address] Monocyte, Absolute 1.0 10 3/mcL Normal 0.1-1.4 [facility] Comment on above: Performed By: #### A PTT #### [address] [address] Monocytes/100 WBC (Bld) 8.2 % Normal 2.0-13.0 [facility] Comment on above: Performed By: #### A PTT #### [address] [address] Neutrophils/100 WBC (Bld) 58.0 % Normal 50.0-75.0 [facility] Comment on above: Performed By: #### A PTT #### [address] [address] .GFRon 06-23-2025 Estimated Glomerular Filtration Rate 59 ml/min/1.73sqm Normal [facility] Comment on above: Result Comment: Stages of Chronic Kidney Disease (CKD) Stage Description eGFR(ml/min/1.73 sq.m.) CKD 1 Normal kidney function or >=90 normal kindney function with possible kidney damage (ex. Proteinuria) CKD 2 Kidney damage with mild loss 60-89 of kidney function CKD 3a Mild to moderate loss of kidney 45-59 function CKD 3b Moderate to severe loss of 30-44 of kindey function CKD 4 Severe loss of kidney function 15-29 CKD 5 Kidney failure <15 Note: (go live 2024) the eGFR calculation was updated to the 2020 CKD-EPI creatinine equation without a race factor to calculate the eGFR results. Performed By: #### A PTT #### [place] [address] .NEUABSon 06-23-2025 Neutrophil, Absolute 6.9 10 3/mcL Normal 2.3-8.1 [facility] Comment on above: Performed By: #### A PTT #### [place] [address] APTTon 06-23-2025 aPTT Coag (Bld) [Time] 52.7 s High 25.0-35.0 [facility] Comment on above: Result Comment: For Heparin anticoagulation therapy, the recommended therapeutic range is: 54-77 seconds (APTT Correlation with Anti-Xa therapeutic range of 0.3-0.7 units/ml). PLEASE REFERENCE THE PHARMACY PROTOCOL FOR DOSING. Performed By: #### L AC #### [place] [address] aPTT Coag (Bld) [Time] 67.1 s High 25.0-35.0 [facility] Comment on above: Result Comment: For Heparin anticoagulation therapy, the recommended therapeutic range is: 54-77 seconds (APTT Correlation with Anti-Xa therapeutic range of 0.3-0.7 units/ml). PLEASE REFERENCE THE PHARMACY PROTOCOL FOR DOSING. Performed By: #### A PTT ####[place] [address] aPTT Coag (Bld) [Time] 50.7 s High 25.0-35.0 [facility] Comment on above: Result Comment: For Heparin anticoagulation therapy, the recommended therapeutic range is: 54-77 seconds (APTT Correlation with Anti-Xa therapeutic range of 0.3-0.7 units/ml). PLEASE REFERENCE THE PHARMACY PROTOCOL FOR DOSING. Performed By: #### C BC, ADIFF, ANEU, APTT, CMP, HFP, GFR #### [place] [address] BMPon 06-23-2025 BUN/Creatinine Ratio 24.5 ratio High 10.0-22.0 [facility] Comment on above: Performed By: #### A PTT #### [address] [address] Calcium [Mass/Vol] 9.0 mg/dL Normal 8.7-10.4 [facility] Comment on above: Performed By: #### A PTT #### [address] [address] Chloride [Moles/Vol] 104 mmol/L Normal 98-110 [facility] Comment on above: Performed By: #### A PTT #### [address] [address] CO2 [Moles/Vol] 29 mmol/L Normal 22-32 [facility] Comment on above: Performed By: #### A PTT #### [address] [address] Creatinine [Mass/Vol] 1.02 mg/dL Normal 0.50-1.20 [facility] Comment on above: Result Comment: Test ing performed on Affashion analyzer using enzymatic creatinine methodology. Performed By: #### A PTT #### [address] [address] Electrolyte Balance 5.0 mEq/L Normal 4.0-15.0 [facility] Comment on above: Performed By: #### A PTT #### [address] [address] Glucose [Mass/Vol] 90 mg/dL Normal 82-115 [facility] Comment on above: Performed By: #### A PTT #### [address] [address] Potassium [Moles/Vol] 4.5 mmol/L Normal 3.5-5.0 [facility] Comment on above: Performed By: #### A PTT #### [address] [address] Sodium [Moles/Vol] 138 mmol/L Normal 136-145 [facility] Comment on above: Performed By: #### A PTT #### [address] [address] Urea nitrogen [Mass/Vol] 25.0 mg/dL High 8.0-22.0 [facility] Comment on above: Performed By: #### A PTT #### [place] [address] CBCon 06-23-2025 Erythrocyte distribution width (RBC) [Ratio] 14.1 % Normal 11.5-15.5 [facility] Comment on above: Performed By: #### A PTT #### [place] [address] Hematocrit (Bld) [Volume fraction] 34.8 % Normal 34.0-46.0 [facility] Comment on above: Performed By: #### A PTT #### [place] [address] Hgb 11.4 G/dL Low 12.0-16.0 [facility] Comment on above: Performed By: #### A PTT #### [place] [address] MCH (RBC) [Entitic mass] 28.8 pg Normal 27.0-33.0 [facility] Comment on above: Performed By: #### A PTT #### [place] [address] MCHC 32.7 G/dL Normal 32.0-36.0 [facility] Comment on above: Performed By: #### A PTT #### [place] [address] MCV (RBC) [Entitic vol] 87.9 fL Normal 80.0-99.0 [facility] Comment on above: Performed By: #### A PTT #### [place] [address] Platelet 324 10 3/mcL Normal 150-450 [facility] Comment on above: Performed By: #### A PTT #### [place] [id number] Platelet mean volume (Bld) [Entitic vol] 8.7 fL Normal 6.6-10.5 [facility] Comment on above: Performed By: #### A PTT #### [place] [address] RBC 3.96 10 6/mcL Low 4.10-5.30 [facility] Comment on above: Performed By: #### A PTT #### [facility] [address] [place] [address] WBC 11.8 10 3/mcL High 4.5-10.8 [facility] Comment on above: Performed By: #### A PTT #### [facility] [address] [place] [address] LABORATORYOrdered By: SYSTEM SYSTEM on 06-23-2025 Basophils (Bld) [#/Vol] 0.1 103/mcL Normal 0.0 - 0.3 10^3/mcL Workflow SS Basophils/100 WBC (Bld) 0.5 % Normal 0.0 - 2.5 % Workflow SS Calcium [Mass/Vol] 9.0 mg/dL Normal 8.7 - 10. 4 mg/dL ADM SS Chloride [Moles/Vol] 104 mmol/L Normal 98 - 11 0 mEq/L ADM SS CO2 [Moles/Vol] 29 mmol/L Normal 22 - 32 mEq/L ADM SS Creatinine [Mass/Vol] 1.02 mg/dL Normal 0.50 - 1.20 mg/dL ADM SS Comment on above: Interpretive Data: T esting performed on Affashion analyzer using enzymatic creatinine methodology. Electrolyte Balance 5.0 mEq/L Normal 4.0 - 15 .0 mEq/L ADM SS Eosinophils (Bld) [#/Vol] 0.2 103/mcL Normal 0.0 - 0.7 10^3/mcL Workflow SS Eosinophils/100 WBC (Bld) 2.0 % Normal 0.0 - 6.0 % Workflow SS Erythrocyte distribution width (RBC) [Ratio] 14.1 % Normal 11.5 - 15.5 % Workflow SS Estimated Glomerular Filtration Rate 59 ml/min/1.73sqm Invalid Interpretation Code Chemistry S Comment on above: Interpretive Data: Stages of Chronic Kidney Disease (CKD) Stage Description eGFR(ml/min/1.73 sq.m.) CKD 1 Normal kidney function or >=90 normal kindney function with possible kidney damage (ex. Proteinuria) CKD 2 Kidney damage with mild loss 60-89 of kidney function CKD 3a Mild to moderate loss of kidney 45-59 function CKD 3b Moderate to severe loss of 30-44 of kindey function CKD 4 Severe loss of kidney function 15-29 CKD 5 Kidney failure <15 Note: (go live 2024) the eGFR calculation was updated to the 2020 CKD-EPI creatinine equation without a race factor to calculate the eGFR results. Glucose [Mass/Vol] 90 mg/dL Normal 82 - 115 mg/dL ADM SS Hematocrit (Bld) [Volume fraction] 34.8 % Normal 34.0 - 46.0 % AH Workflow SS Hemoglobin (Bld) [Mass/Vol] 11.4 G/dL Low 12.0 - 16.0 G/dL AH Workflow SS Lymphocytes (Bld) [#/Vol] 3.7 103/mcL Normal 0.9 - 4.3 10^3/mcL AH Workflow SS Lymphocytes/100 WBC (Bld) 31.3 % Normal 20.0 - 40.0 % AH Workflow SS Magnesium [Mass/Vol] 2.3 mg/dL Normal 1.6 - 2 .4 mg/dL ADM SS MCH (RBC) [Entitic mass] 28.8 pg Normal 27.0 - 33.0 pg AH Workflow SS MCHC 32.7 G/dL Normal 32.0 - 36.0 G/dL AH Workflow SS MCV (RBC) [Entitic vol] 87.9 fL Normal 80.0 - 99.0 fL Workflow SS Monocytes (Bld) [#/Vol] 1.0 103/mcL Normal 0.1 - 1.4 10^3/mcL AH Workflow SS Monocytes/100 WBC (Bld) 8.2 % Normal 2.0 - 13.0 % AH Workflow SS Neutrophils (Bld) [#/Vol] 6.9 103/mcL Normal 2.3 - 8.1 10^3/mcL AH Workflow SS Neutrophils/100 WBC (Bld) 58.0 % Normal 50.0 - 75.0 % AH Workflow SS Platelet mean volume (Bld) [Entitic vol] 8.7 fL Normal 6.6 - 10.5 fL Workflow SS Platelets (Bld) [#/Vol] 324 103/mcL Normal 150 - 450 10^3/mcL AH Workflow SS Potassium [Moles/Vol] 4.5 mmol/L Normal 3.5 - 5.0 mEq/L ADM SS RBC (Bld) [#/Vol] 3.96 106/mcL Low 4.10 - 5.3 0 10^6/mcL AH Workflow SS Sodium [Moles/Vol] 138 mmol/L Normal 136 - 145 mEq/L AH ADM SS Urea nitrogen [Mass/Vol] 25.0 mg/dL High 8.0 - 22.0 mg/dL AH ADM SS Urea nitrogen/Creatinine [Mass ratio] 24.5 ratio High 10.0 - 22.0 ratio AH ADM SS WBC (Bld) [#/Vol] 11.8 103/mcL High 4.5 - 10.8 10^3/mcL AH Workflow SS MGon 06-23-2025 Magnesium [Mass/Vol] 2.3 mg/dL Normal 1.6-2.4 [facility] Comment on above: Performed By: #### A PTT #### [address] [address] .Auto Diffon 06-22-2025 Basophil, Absolute 0.0 10 3/mcL Normal 0.0-0.3 [facility] Comment on above: Performed By: #### L AC #### [address] [address] Basophils/100 WBC (Bld) 0.6 % Normal 0.0-2.5 [facility] Comment on above: Performed By: #### L AC #### [address] [address] Eosinophil, Absolute 0.0 10 3/mcL Normal 0.0-0.7 [facility] Comment on above: Performed By: #### L AC #### [address] [address] Eosinophils/100 WBC (Bld) 0.4 % Normal 0.0-6.0 [facility] Comment on above: Performed By: #### L AC #### [address] [address] Lymphocyte, Absolute 1.7 10 3/mcL Normal 0.9-4.3 [facility] Comment on above: Performed By: #### L AC #### [address] [address] Lymphocytes/100 WBC (Bld) 23.0 % Normal 20.0-40.0 [facility] Comment on above: Performed By: #### L AC #### [facility] [address] [place] [address] Monocyte, Absolute 0.7 10 3/mcL Normal 0.1-1.4 [facility] Comment on above: Performed By: #### L AC #### [facility] [address] [place] [address] Monocytes/100 WBC (Bld) 9.6 % Normal 2.0-13.0 [facility] Comment on above: Performed By: #### L AC #### [address] [address] Neutrophils/100 WBC (Bld) 66.4 % Normal 50.0-75.0 [facility] Comment on above: Performed By: #### L AC #### [address] [address] .GFRon 06-22-2025 Estimated Glomerular Filtration Rate 63 ml/min/1.73sqm Normal [facility] Comment on above: Result Comment: Stages of Chronic Kidney Disease (CKD) Stage Description eGFR(ml/min/1.73 sq.m.) CKD 1 Normal kidney function or >=90 normal kindney function with possible kidney damage (ex. Proteinuria) CKD 2 Kidney damage with mild loss 60-89 of kidney function CKD 3a Mild to moderate loss of kidney 45-59 function CKD 3b Moderate to severe loss of 30-44 of kindey function CKD 4 Severe loss of kidney function 15-29 CKD 5 Kidney failure <15 Note: (go live 2024) the eGFR calculation was updated to the 2020 CKD-EPI creatinine equation without a race factor to calculate the eGFR results. Performed By: #### L AC #### [facility] [address] [place] [address] .NEUABSon 06-22-2025 Neutrophil, Absolute 5.0 10 3/mcL Normal 2.3-8.1 [facility] Comment on above: Performed By: #### L AC #### [address] [address] APTTon 06-22-2025 aPTT Coag (Bld) [Time] 47.8 s High 25.0-35.0 [facility] Comment on above: Result Comment: For Heparin anticoagulation therapy, the recommended therapeutic range is: 54-77 seconds (APTT Correlation with Anti-Xa therapeutic range of 0.3-0.7 units/ml). PLEASE REFERENCE THE PHARMACY PROTOCOL FOR DOSING. Performed By: #### L AC #### [place] [address] aPTT Coag (Bld) [Time] 48.7 s High 25.0-35.0 [facility] Comment on above: Result Comment: For Heparin anticoagulation therapy, the recommended therapeutic range is: 54-77 seconds (APTT Correlation with Anti-Xa therapeutic range of 0.3-0.7 units/ml). PLEASE REFERENCE THE PHARMACY PROTOCOL FOR DOSING. Performed By: #### A PTT ####[place] [address] aPTT Coag (Bld) [Time] 52.7 s High 25.0-35.0 [facility] Comment on above: Result Comment: For Heparin anticoagulation therapy, the recommended therapeutic range is: 54-77 seconds (APTT Correlation with Anti-Xa therapeutic range of 0.3-0.7 units/ml). PLEASE REFERENCE THE PHARMACY PROTOCOL FOR DOSING. Performed By: #### A PTT ####[address] [address] aPTT Coag (Bld) [Time] 49.2 s High 25.0-35.0 [facility] Comment on above: Result Comment: For Heparin anticoagulation therapy, the recommended therapeutic range is: 54-77 seconds (APTT Correlation with Anti-Xa therapeutic range of 0.3-0.7 units/ml). PLEASE REFERENCE THE PHARMACY PROTOCOL FOR DOSING. Performed By: #### A PTT ####[address] [facility] 06-22-2025 BUN/Creatinine Ratio 30.2 ratio High 10.0-22.0 [facility] Comment on above: Performed By: #### L AC #### [address] [address] Calcium [Mass/Vol] 8.6 mg/dL Low 8.7-10.4 [facility] Comment on above: Performed By: #### L AC #### [address] [address] Chloride [Moles/Vol] 101 mmol/L Normal 98-110 [facility] Comment on above: Performed By: #### L AC #### [address] [address] CO2 [Moles/Vol] 29 mmol/L Normal 22-32 [facility] Comment on above: Performed By: #### L AC #### [address] [address] Creatinine [Mass/Vol] 0.96 mg/dL Normal 0.50-1.20 [facility] Comment on above: Result Comment: Test ing performed on Affashion analyzer using enzymatic creatinine methodology. Performed By: #### L AC #### [address] [address] Electrolyte Balance 9.0 mEq/L Normal 4.0-15.0 [facility] Comment on above: Performed By: #### L AC #### [address] [address] Glucose [Mass/Vol] 108 mg/dL Normal 82-115 [facility] Comment on above: Performed By: #### L AC #### [address] [address] Potassium [Moles/Vol] 3.6 mmol/L Normal 3.5-5.0 [facility] Comment on above: Performed By: #### L AC #### [address] [address] Sodium [Moles/Vol] 139 mmol/L Normal 136-145 [facility] Comment on above: Performed By: #### L AC #### [address] [address] Urea nitrogen [Mass/Vol] 29.0 mg/dL High 8.0-22.0 [facility] Comment on above: Performed By: #### L AC #### [address] [address] CBCon 06-22-2025 Erythrocyte distribution width (RBC) [Ratio] 13.9 % Normal 11.5-15.5 [facility] Comment on above: Performed By: #### L AC #### [place] [address] Hematocrit (Bld) [Volume fraction] 34.9 % Normal 34.0-46.0 [facility] Comment on above: Performed By: #### L AC #### [place] [address] Hgb 11.5 G/dL Low 12.0-16.0 [facility] Comment on above: Performed By: #### L AC #### [place] [address] MCH (RBC) [Entitic mass] 29.2 pg Normal 27.0-33.0 [facility] Comment on above: Performed By: #### L AC #### [place] [address] MCHC 32.9 G/dL Normal 32.0-36.0 [facility] Comment on above: Performed By: #### L AC #### [place] [address] MCV (RBC) [Entitic vol] 88.6 fL Normal 80.0-99.0 [facility] Comment on above: Performed By: #### L AC #### [place] [address] Platelet 316 10 3/mcL Normal 150-450 [facility] Comment on above: Performed By: #### L AC #### [place] [address] Platelet mean volume (Bld) [Entitic vol] 8.0 fL Normal 6.6-10.5 [facility] Comment on above: Performed By: #### L AC #### [place] [address] RBC 3.94 10 6/mcL Low 4.10-5.30 [facility] Comment on above: Performed By: #### L AC #### [place] [address] WBC 7.5 10 3/mcL Normal 4.5-10.8 [facility] Comment on above: Performed By: #### L AC #### [address] [address] MGon 06-22-2025 Magnesium [Mass/Vol] 2.1 mg/dL Normal 1.6-2.4 [facility] Comment on above: Performed By: #### L AC #### [address] [address] .Auto Diffon 06-21-2025 Basophil, Absolute 0.1 10 3/mcL Normal 0.0-0.3 [facility] Comment on above: Performed By: #### B G #### [address] [address] Basophils/100 WBC (Bld) 0.7 % Normal 0.0-2.5 [facility] Comment on above: Performed By: #### B G #### [address] [address] Eosinophil, Absolute 0.1 10 3/mcL Normal 0.0-0.7 [facility] Comment on above: Performed By: #### B G #### [address] [address] Eosinophils/100 WBC (Bld) 0.8 % Normal 0.0-6.0 [facility] Comment on above: Performed By: #### B G #### [address] [address] Lymphocyte, Absolute 2.8 10 3/mcL Normal 0.9-4.3 [facility] Comment on above: Performed By: #### B G #### [address] [address] Lymphocytes/100 WBC (Bld) 30.7 % Normal 20.0-40.0 [facility] Comment on above: Performed By: #### B G #### [address] [address] Monocyte, Absolute 1.0 10 3/mcL Normal 0.1-1.4 [facility] Comment on above: Performed By: #### B G #### [facility] [address] [place] [address] Monocytes/100 WBC (Bld) 11.1 % Normal 2.0-13.0 [facility] Comment on above: Performed By: #### B G #### [facility] [address] [place] [address] Neutrophils/100 WBC (Bld) 56.7 % Normal 50.0-75.0 [facility] Comment on above: Performed By: #### B G #### [address] [address] .GFRon 06-21-2025 Estimated Glomerular Filtration Rate 72 ml/min/1.73sqm Normal [facility] Comment on above: Result Comment: Stages of Chronic Kidney Disease (CKD) Stage Description eGFR(ml/min/1.73 sq.m.) CKD 1 Normal kidney function or >=90 normal kindney function with possible kidney damage (ex. Proteinuria) CKD 2 Kidney damage with mild loss 60-89 of kidney function CKD 3a Mild to moderate loss of kidney 45-59 function CKD 3b Moderate to severe loss of 30-44 of kindey function CKD 4 Severe loss of kidney function 15-29 CKD 5 Kidney failure <15 Note: (go live 2024) the eGFR calculation was updated to the 2020 CKD-EPI creatinine equation without a race factor to calculate the eGFR results. Performed By: #### C BC, ADIFF, ANEU, APTT, CMP, HFP, GFR #### [address] [address] .NEUABSon 06-21-2025 Neutrophil, Absolute 5.1 10 3/mcL Normal 2.3-8.1 [facility] Comment on above: Performed By: #### B G #### [address] [address] APTTon 06-21-2025 aPTT Coag (Bld) [Time] 133.5 s Critically abnormal 25.0-35.0 [facility] Comment on above: Order Comment: [place] to nurse and they were not expecting results that were given from specimen.DH. Result Comment: For Heparin anticoagulation therapy, the recommended therapeutic range is: 54-77 seconds (APTT Correlation with Anti-Xa therapeutic range of 0.3-0.7 units/ml). PLEASE REFERENCE THE PHARMACY PROTOCOL FOR DOSING. Performed By: #### D RUGS #### [place] [address] aPTT Coag (Bld) [Time] 35.0 s Normal 25.0-35.0 [facility] Comment on above: Result Comment: For Heparin anticoagulation therapy, the recommended therapeutic range is: 54-77 seconds (APTT Correlation with Anti-Xa therapeutic range of 0.3-0.7 units/ml). PLEASE REFERENCE THE PHARMACY PROTOCOL FOR DOSING. Performed By: #### C BC, ADIFF, ANEU, APTT, CMP, HFP, GFR #### [place] [id number] aPTT Coag (Bld) [Time] 46.2 s High 25.0-35.0 [facility] Comment on above: Result Comment: For Heparin anticoagulation therapy, the recommended therapeutic range is: 54-77 seconds (APTT Correlation with Anti-Xa therapeutic range of 0.3-0.7 units/ml). PLEASE REFERENCE THE PHARMACY PROTOCOL FOR DOSING. Performed By: #### A PTT #### [place] [id number] BMPon 06-21-2025 BUN/Creatinine Ratio 27.9 ratio High 10.0-22.0 [facility] Comment on above: Performed By: #### C BC, ADIFF, ANEU, APTT, CMP, HFP, GFR #### [address] [address] Calcium [Mass/Vol] 9.0 mg/dL Normal 8.7-10.4 [facility] Comment on above: Performed By: #### C BC, ADIFF, ANEU, APTT, CMP, HFP, GFR #### [address] [address] [address] Chloride [Moles/Vol] 100 mmol/L Normal 98-110 [facility] MAIN Comment on above: Performed By: #### C BC, ADIFF, ANEU, APTT, CMP, HFP, GFR #### [address] [address] CO2 [Moles/Vol] 30 mmol/L Normal 22-32 [facility] Comment on above: Performed By: #### C BC, ADIFF, ANEU, APTT, CMP, HFP, GFR #### [place] [id number] Creatinine [Mass/Vol] 0.86 mg/dL Normal 0.50-1.20 [facility] Comment on above: Result Comment: Test ing performed on Affashion analyzer using enzymatic creatinine methodology. Performed By: #### C BC, ADIFF, ANEU, APTT, CMP, HFP, GFR #### [place] [id number] Electrolyte Balance 10.0 mEq/L Normal 4.0-15.0 [facility] Comment on above: Performed By: #### C BC, ADIFF, ANEU, APTT, CMP, HFP, GFR #### [place] [id number] Glucose [Mass/Vol] 91 mg/dL Normal 82-115 [facility]IN Comment on above: Performed By: #### C BC, ADIFF, ANEU, APTT, CMP, HFP, GFR #### [place] [id number] Potassium [Moles/Vol] 3.6 mmol/L Normal 3.5-5.0 [facility] Comment on above: Performed By: #### C BC, ADIFF, ANEU, APTT, CMP, HFP, GFR #### [place] [id number] Sodium [Moles/Vol] 140 mmol/L Normal 136-145 [facility] Comment on above: Performed By: #### C BC, ADIFF, ANEU, APTT, CMP, HFP, GFR #### [place] [id number] Urea nitrogen [Mass/Vol] 24.0 mg/dL High 8.0-22.0 [facility] Comment on above: Performed By: #### C BC, ADIFF, ANEU, APTT, CMP, HFP, GFR #### [address] [address] CBCon 08-30-2025 Erythrocyte distribution width (RBC) [Ratio] 14.2 % Normal 11.5-15.5 [facility] Comment on above: Performed By: #### B G #### [place] [address] Hematocrit (Bld) [Volume fraction] 35.4 % Normal 34.0-46.0 [facility] Comment on above: Performed By: #### B G #### [place] [address] Hgb 11.8 G/dL Low 12.0-16.0 [facility] Comment on above: Performed By: #### B G #### [place] [address] MCH (RBC) [Entitic mass] 29.0 pg Normal 27.0-33.0 [facility] Comment on above: Performed By: #### B G #### [place] [address] MCHC 33.4 G/dL Normal 32.0-36.0 [facility] Comment on above: Performed By: #### B G #### [place] [address] MCV (RBC) [Entitic vol] 87.1 fL Normal 80.0-99.0 [facility] Comment on above: Performed By: #### B G #### [place] [address] Platelet 329 10 3/mcL Normal 150-450 [facility] Comment on above: Performed By: #### B G #### [place] [address] Platelet mean volume (Bld) [Entitic vol] 8.6 fL Normal 6.6-10.5 [facility] Comment on above: Performed By: #### B G #### [place] [address] RBC 4.07 10 6/mcL Low 4.10-5.30 [facility] Comment on above: Performed By: #### B G #### [address] [address] WBC 9.0 10 3/mcL Normal 4.5-10.8 [facility] Comment on above: Performed By: #### B G #### [address] [address] LABORATORYOrdered By: Mirtha Bennett on 06-21-2025 Glucose [Mass/Vol] 94 mg/dL Normal 82 - 115 mg/dL [facility] MGon 06-21-2025 Magnesium [Mass/Vol] 2.4 mg/dL Normal 1.6-2.4 [facility] Comment on above: Performed By: #### C BC, ADIFF, ANEU, APTT, CMP, HFP, GFR #### [address] [address] .Auto Diffon 06-20-2025 Basophil, Absolute 0.0 10 3/mcL Normal 0.0-0.3 [facility] Comment on above: Performed By: #### L AC #### [address] [address] Basophils/100 WBC (Bld) 0.2 % Normal 0.0-2.5 [facility] Comment on above: Performed By: #### L AC #### [address] [address] Eosinophil, Absolute 0.0 10 3/mcL Normal 0.0-0.7 [facility] Comment on above: Performed By: #### L AC #### [address] [address] Eosinophils/100 WBC (Bld) 0.0 % Normal 0.0-6.0 [facility] Comment on above: Performed By: #### L AC #### [address] [address] Lymphocyte, Absolute 0.9 10 3/mcL Normal 0.9-4.3 [facility] Comment on above: Performed By: #### L AC #### [address] [address] Lymphocytes/100 WBC (Bld) 14.5 % Low 20.0-40.0 [facility] Comment on above: Performed By: #### L AC #### [facility] [address] [place] [address] Monocyte, Absolute 0.5 10 3/mcL Normal 0.1-1.4 [facility] Comment on above: Performed By: #### L AC #### [facility] [address] [place] [address] Monocytes/100 WBC (Bld) 7.8 % Normal 2.0-13.0 [facility] Comment on above: Performed By: #### L AC #### [facility] [address] [place] [address] Neutrophils/100 WBC (Bld) 77.5 % High 50.0-75.0 [facility] Comment on above: Performed By: #### L AC #### [address] [address] .GFRon 06-20-2025 Estimated Glomerular Filtration Rate 53 ml/min/1.73sqm Normal [facility] Comment on above: Result Comment: Stages of Chronic Kidney Disease (CKD) Stage Description eGFR(ml/min/1.73 sq.m.) CKD 1 Normal kidney function or >=90 normal kindney function with possible kidney damage (ex. Proteinuria) CKD 2 Kidney damage with mild loss 60-89 of kidney function CKD 3a Mild to moderate loss of kidney 45-59 function CKD 3b Moderate to severe loss of 30-44 of kindey function CKD 4 Severe loss of kidney function 15-29 CKD 5 Kidney failure <15 Note: (go live 2024) the eGFR calculation was updated to the 2020 CKD-EPI creatinine equation without a race factor to calculate the eGFR results. Performed By: #### D RUGS #### [facility] [address] [place] [address] .NEUABSon 06-20-2025 Neutrophil, Absolute 5.0 10 3/mcL Normal 2.3-8.1 [facility] Comment on above: Performed By: #### L AC #### [facility] [address] [place] [address] APTTon 06-20-2025 aPTT Coag (Bld) [Time] 49.7 s High 25.0-35.0 [facility] Comment on above: Result Comment: Resu lts verified by repeat analysis. - [id number] - 06/20/25, 6:34 PM For Heparin anticoagulation therapy, the recommended therapeutic range is: 54-77 seconds (APTT Correlation with Anti-Xa therapeutic range of 0.3-0.7 units/ml). PLEASE REFERENCE THE PHARMACY PROTOCOL FOR DOSING. Performed By: #### L AC #### [place] [address] aPTT Coag (Bld) [Time] 73.1 s High 25.0-35.0 [facility] Comment on above: Result Comment: For Heparin anticoagulation therapy, the recommended therapeutic range is: 54-77 seconds (APTT Correlation with Anti-Xa therapeutic range of 0.3-0.7 units/ml). PLEASE REFERENCE THE PHARMACY PROTOCOL FOR DOSING. Performed By: #### A PTT ####[place] [id number] aPTT Coag (Bld) [Time] 67.1 s High 25.0-35.0 [facility] Comment on above: Result Comment: For Heparin anticoagulation therapy, the recommended therapeutic range is: 54-77 seconds (APTT Correlation with Anti-Xa therapeutic range of 0.3-0.7 units/ml). PLEASE REFERENCE THE PHARMACY PROTOCOL FOR DOSING. Performed By: #### A PTT ####[address] [address] [facility] BUN/Creatinine Ratio 37.8 ratio High 10.0-22.0 [facility] Comment on above: Performed By: #### L AC #### [address] [address] Calcium [Mass/Vol] 8.9 mg/dL Normal 8.7-10.4 [facility] MAIN Comment on above: Performed By: #### L AC #### [address] [address] Chloride [Moles/Vol] 98 mmol/L Normal 98-110 [facility] Comment on above: Performed By: #### L AC #### [address] [address] CO2 [Moles/Vol] 30 mmol/L Normal 22-32 [facility] Comment on above: Performed By: #### L AC #### [address] [address] Creatinine [Mass/Vol] 1.11 mg/dL Normal 0.50-1.20 [facility] Comment on above: Result Comment: Test ing performed on Affashion analyzer using enzymatic creatinine methodology. Performed By: #### L AC #### [address] [address] Electrolyte Balance 11.0 mEq/L Normal 4.0-15.0 [facility] Comment on above: Performed By: #### L AC #### [place] [id number] Glucose [Mass/Vol] 116 mg/dL High 82-115 [facility]IN Comment on above: Performed By: #### L AC #### [place] [id number] Potassium [Moles/Vol] 3.5 mmol/L Normal 3.5-5.0 [facility] Comment on above: Performed By: #### L AC #### [place] [id number] Sodium [Moles/Vol] 139 mmol/L Normal 136-145 [facility] MAIN Comment on above: Performed By: #### L AC #### [place] [id number] Urea nitrogen [Mass/Vol] 42.0 mg/dL High 8.0-22.0 [facility] Comment on above: Performed By: #### L AC #### [address] [address] CBCon 06-20-2025 Erythrocyte distribution width (RBC) [Ratio] 14.1 % Normal 11.5-15.5 [facility] Comment on above: Performed By: #### L AC #### [place] [id number] Hematocrit (Bld) [Volume fraction] 33.0 % Low 34.0-46.0 [facility] Comment on above: Performed By: #### L AC #### [place] [address] Hgb 11.1 G/dL Low 12.0-16.0 [facility] Comment on above: Performed By: #### L AC #### [place] [id number] MCH (RBC) [Entitic mass] 29.3 pg Normal 27.0-33.0 [facility] Comment on above: Performed By: #### L AC #### [place] [address] MCHC 33.6 G/dL Normal 32.0-36.0 [facility] Comment on above: Performed By: #### L AC #### [place] [address] MCV (RBC) [Entitic vol] 87.2 fL Normal 80.0-99.0 [facility] Comment on above: Performed By: #### L AC #### [place] [address] Platelet 290 10 3/mcL Normal 150-450 [facility] Comment on above: Performed By: #### L AC #### [place] [address] Platelet mean volume (Bld) [Entitic vol] 8.2 fL Normal 6.6-10.5 [facility] Comment on above: Performed By: #### L AC #### [place] [address] RBC 3.78 10 6/mcL Low 4.10-5.30 [facility] Comment on above: Performed By: #### L AC #### [place] [id number] WBC 6.4 10 3/mcL Normal 4.5-10.8 [facility] Comment on above: Performed By: #### L AC #### [place] [address] MGon 06-20-2025 Magnesium [Mass/Vol] 2.5 mg/dL High 1.6-2.4 [facility] Comment on above: Performed By: #### L AC #### [address] [address] .Auto Diffon 06-19-2025 Basophil, Absolute 0.0 10 3/mcL Normal 0.0-0.3 [facility] Comment on above: Performed By: #### C BC, ADIFF, ANEU, APTT, CMP, HFP, GFR #### [address] [address] Basophils/100 WBC (Bld) 0.1 % Normal 0.0-2.5 [facility] Comment on above: Performed By: #### C BC, ADIFF, ANEU, APTT, CMP, HFP, GFR #### [place] [id number] Eosinophil, Absolute 0.0 10 3/mcL Normal 0.0-0.7 [facility] Comment on above: Performed By: #### C BC, ADIFF, ANEU, APTT, CMP, HFP, GFR #### [address] [address] Eosinophils/100 WBC (Bld) 0.0 % Normal 0.0-6.0 [facility] Comment on above: Performed By: #### C BC, ADIFF, ANEU, APTT, CMP, HFP, GFR #### [address] [address] Lymphocyte, Absolute 0.7 10 3/mcL Low 0.9-4.3 [facility] Comment on above: Performed By: #### C BC, ADIFF, ANEU, APTT, CMP, HFP, GFR #### [address] [address] Lymphocytes/100 WBC (Bld) 12.6 % Low 20.0-40.0 [facility] Comment on above: Performed By: #### C BC, ADIFF, ANEU, APTT, CMP, HFP, GFR #### [address] [address] Monocyte, Absolute 0.3 10 3/mcL Normal 0.1-1.4 [facility] Comment on above: Performed By: #### C BC, ADIFF, ANEU, APTT, CMP, HFP, GFR #### [facility] [address] [place] [address] Monocytes/100 WBC (Bld) 5.8 % Normal 2.0-13.0 [facility] Comment on above: Performed By: #### C BC, ADIFF, ANEU, APTT, CMP, HFP, GFR #### [facility] [address] [place] [address] Neutrophils/100 WBC (Bld) 81.5 % High 50.0-75.0 [facility] Comment on above: Performed By: #### C BC, ADIFF, ANEU, APTT, CMP, HFP, GFR #### [address] [address] .GFRon 06-19-2025 Estimated Glomerular Filtration Rate 52 ml/min/1.73sqm [facility] MAIN Comment on above: Result Comment: Stages of Chronic Kidney Disease (CKD) Stage Description eGFR(ml/min/1.73 sq.m.) CKD 1 Normal kidney function or >=90 normal kindney function with possible kidney damage (ex. Proteinuria) CKD 2 Kidney damage with mild loss 60-89 of kidney function CKD 3a Mild to moderate loss of kidney 45-59 function CKD 3b Moderate to severe loss of 30-44 of kindey function CKD 4 Severe loss of kidney function 15-29 CKD 5 Kidney failure <15 Note: (go live 2024) the eGFR calculation was updated to the 2020 CKD-EPI creatinine equation without a race factor to calculate the eGFR results. Performed By: #### C BC, ADIFF, ANEU, APTT, CMP, HFP, GFR #### [place] [id number] [place] [address] Estimated Glomerular Filtration Rate 71 ml/min/1.73sqm [facility] MAIN Comment on above: Result Comment: Stages of Chronic Kidney Disease (CKD) Stage Description eGFR(ml/min/1.73 sq.m.) CKD 1 Normal kidney function or >=90 normal kindney function with possible kidney damage (ex. Proteinuria) CKD 2 Kidney damage with mild loss 60-89 of kidney function CKD 3a Mild to moderate loss of kidney 45-59 function CKD 3b Moderate to severe loss of 30-44 of kindey function CKD 4 Severe loss of kidney function 15-29 CKD 5 Kidney failure <15 Note: (go live 2024) the eGFR calculation was updated to the 2020 CKD-EPI creatinine equation without a race factor to calculate the eGFR results. Performed By: #### L AC #### [address] [address] .NEUABSon 06-19-2025 Neutrophil, Absolute 4.7 10 3/mcL Normal 2.3-8.1 [facility]IN Comment on above: Performed By: #### L AC #### [place] [address] APTTon 06-19-2025 aPTT Coag (Bld) [Time] 52.6 s High 25.0-35.0 [facility] Comment on above: Result Comment: For Heparin anticoagulation therapy, the recommended therapeutic range is: 54-77 seconds (APTT Correlation with Anti-Xa therapeutic range of 0.3-0.7 units/ml). PLEASE REFERENCE THE PHARMACY PROTOCOL FOR DOSING. Performed By: #### A PTT #### [place] [address] aPTT Coag (Bld) [Time] 73.6 s High 25.0-35.0 [facility] Comment on above: Result Comment: For Heparin anticoagulation therapy, the recommended therapeutic range is: 54-77 seconds (APTT Correlation with Anti-Xa therapeutic range of 0.3-0.7 units/ml). PLEASE REFERENCE THE PHARMACY PROTOCOL FOR DOSING. Performed By: #### A PTT #### [place] [address] aPTT Coag (Bld) [Time] 65.1 s High 25.0-35.0 [facility] Comment on above: Result Comment: For Heparin anticoagulation therapy, the recommended therapeutic range is: 54-77 seconds (APTT Correlation with Anti-Xa therapeutic range of 0.3-0.7 units/ml). PLEASE REFERENCE THE PHARMACY PROTOCOL FOR DOSING. Performed By: #### L AC #### [address] [address] BMPon 06-19-2025 BUN/Creatinine Ratio 34.5 ratio High 10.0-22.0 [facility] MAIN Comment on above: Performed By: #### C BC, ADIFF, ANEU, APTT, CMP, HFP, GFR #### [address] [address] Calcium [Mass/Vol] 8.6 mg/dL Low 8.7-10.4 [facility] MAIN Comment on above: Performed By: #### C BC, ADIFF, ANEU, APTT, CMP, HFP, GFR #### [address] [address] Chloride [Moles/Vol] 99 mmol/L Normal 98-110 [facility] MAIN Comment on above: Performed By: #### C BC, ADIFF, ANEU, APTT, CMP, HFP, GFR #### [address] [address] CO2 [Moles/Vol] 29 mmol/L Normal 22-32 [facility] Comment on above: Performed By: #### C BC, ADIFF, ANEU, APTT, CMP, HFP, GFR #### [address] [address] Creatinine [Mass/Vol] 1.13 mg/dL Normal 0.50-1.20 [facility] Comment on above: Result Comment: Test ing performed on Affashion analyzer using enzymatic creatinine methodology. Performed By: #### C BC, ADIFF, ANEU, APTT, CMP, HFP, GFR #### [address] [address] Electrolyte Balance 12.0 mEq/L Normal 4.0-15.0 [facility] MAIN Comment on above: Performed By: #### C BC, ADIFF, ANEU, APTT, CMP, HFP, GFR #### [address] [address] Glucose [Mass/Vol] 156 mg/dL High 82-115 [facility] MAIN Comment on above: Performed By: #### C BC, ADIFF, ANEU, APTT, CMP, HFP, GFR #### [address] [address] Potassium [Moles/Vol] 3.6 mmol/L Normal 3.5-5.0 [facility] Comment on above: Performed By: #### C BC, ADIFF, ANEU, APTT, CMP, HFP, GFR #### [place] [id number] Sodium [Moles/Vol] 140 mmol/L Normal 136-145 [facility] MAIN Comment on above: Performed By: #### C BC, ADIFF, ANEU, APTT, CMP, HFP, GFR #### [place] [id number] Urea nitrogen [Mass/Vol] 39.0 mg/dL High 8.0-22.0 [facility] Comment on above: Performed By: #### C BC, ADIFF, ANEU, APTT, CMP, HFP, GFR #### [place] [id number] CBCon 06-19-2025 Erythrocyte distribution width (RBC) [Ratio] 14.3 % Normal 11.5-15.5 [facility] Comment on above: Performed By: #### C BC, ADIFF, ANEU, APTT, CMP, HFP, GFR #### [place] [address] Hematocrit (Bld) [Volume fraction] 33.7 % Low 34.0-46.0 [facility] Comment on above: Performed By: #### C BC, ADIFF, ANEU, APTT, CMP, HFP, GFR #### [place] [id number] Hgb 11.3 G/dL Low 12.0-16.0 [facility] Comment on above: Performed By: #### C BC, ADIFF, ANEU, APTT, CMP, HFP, GFR #### [place] [id number] MCH (RBC) [Entitic mass] 29.4 pg Normal 27.0-33.0 [facility] Comment on above: Performed By: #### C BC, ADIFF, ANEU, APTT, CMP, HFP, GFR #### [place] [address] MCHC 33.6 G/dL Normal 32.0-36.0 [facility] Comment on above: Performed By: #### C BC, ADIFF, ANEU, APTT, CMP, HFP, GFR #### [place] [id number] MCV (RBC) [Entitic vol] 87.4 fL Normal 80.0-99.0 [facility] Comment on above: Performed By: #### C BC, ADIFF, ANEU, APTT, CMP, HFP, GFR #### [place] [id number] Platelet 272 10 3/mcL Normal 150-450 [facility] Comment on above: Performed By: #### C BC, ADIFF, ANEU, APTT, CMP, HFP, GFR #### [place] [id number] Platelet mean volume (Bld) [Entitic vol] 7.9 fL Normal 6.6-10.5 [facility] Comment on above: Performed By: #### C BC, ADIFF, ANEU, APTT, CMP, HFP, GFR #### [place] [id number] RBC 3.86 10 6/mcL Low 4.10-5.30 [facility] Comment on above: Performed By: #### C BC, ADIFF, ANEU, APTT, CMP, HFP, GFR #### [place] [id number] WBC 5.8 10 3/mcL Normal 4.5-10.8 [facility] Comment on above: Performed By: #### C BC, ADIFF, ANEU, APTT, CMP, HFP, GFR #### [address] [address] CMPon 06-19-2025 Albumin Level 2.9 G/dL Low 3.2-4.8 [facility] Comment on above: Performed By: #### L AC #### [place] [id number] Albumin/Globulin [Mass ratio] 0.9 {ratio} Normal 0.9-1.6 [facility] Comment on above: Performed By: #### L AC #### [address] [address] ALP [Catalytic activity/Vol] 76 U/L Normal 38-126 [facility] Comment on above: Performed By: #### L AC #### [address] [address] ALT [Catalytic activity/Vol] 57 U/L High 10-49 [facility] Comment on above: Performed By: #### L AC #### [address] [address] AST [Catalytic activity/Vol] 36 U/L High 8-34 [facility] Comment on above: Performed By: #### L AC #### [address] [address] Bili Total 0.50 mg/dL Normal 0.20-1.20 [facility] Comment on above: Result Comment: Use of this assay is not recommended for patients undergoing treatment with eltrombopag due to the potential for falsely elevated results. Performed By: #### L AC #### [place] [id number] BUN/Creatinine Ratio 36.8 ratio High 10.0-22.0 [facility] MAIN Comment on above: Performed By: #### L AC #### [address] [address] Calcium [Mass/Vol] 8.8 mg/dL Normal 8.7-10.4 [facility] MAIN Comment on above: Performed By: #### L AC #### [address] [address] Chloride [Moles/Vol] 105 mmol/L Normal 98-110 [facility] MA[facility] Comment on above: Performed By: #### L AC #### [address] [address] CO2 [Moles/Vol] 32 mmol/L Normal 22-32 [facility] Comment on above: Performed By: #### L AC #### [address] [address] Creatinine [Mass/Vol] 0.87 mg/dL Normal 0.50-1.20 [facility] Comment on above: Result Comment: Test ing performed on Affashion analyzer using enzymatic creatinine methodology. Performed By: #### L AC #### [address] [address] Electrolyte Balance 12.0 mEq/L Normal 4.0-15.0 [facility] MAIN Comment on above: Performed By: #### L AC #### [address] [address] Globulin 3.2 G/dL Normal 2.5-4.2 [facility] Comment on above: Performed By: #### L AC #### [address] [address] Glucose [Mass/Vol] 139 mg/dL High 82-115 [facility] MAIN Comment on above: Performed By: #### L AC #### [place] [id number] Potassium [Moles/Vol] 3.7 mmol/L Normal 3.5-5.0 [facility] Comment on above: Performed By: #### L AC #### [place] [id number] Sodium [Moles/Vol] 149 mmol/L High 136-145 [facility]IN Comment on above: Performed By: #### L AC #### [place] [id number] Total Protein 6.1 G/dL Normal 5.7-8.2 [facility] Comment on above: Performed By: #### L AC #### [place] [id number] Urea nitrogen [Mass/Vol] 32.0 mg/dL High 8.0-22.0 [facility] Comment on above: Performed By: #### L AC #### [address] [address] HFPon 06-19-2025 Bili Indirect 0.4 mg/dL Normal 0.1-10.0 [facility] Comment on above: Performed By: #### L AC #### [place] [id number] Bili Direct 0.1 mg/dL Normal 0.0-0.4 [facility] Comment on above: Result Comment: Use of this assay is not recommended for patients undergoing treatment with eltrombopag due to the potential for falsely elevated results. Performed By: #### L #### [place] [address] LABORATORYOrdered By: SYSTEM SYSTEM on 06-19-2025 Bili Indirect 0.4 mg/dL Normal 0.1 - 10.0 mg/dL Chemistry S Bilirubin.conjugated [Mass/Vol] 0.1 mg/dL Normal 0.0 - 0.4 mg/dL ADM SS Comment on above: Interpretive Data: U se of this assay is not recommended for patients undergoing treatment with eltrombopag due to the potential for falsely elevated results. Laboratory - Chemistry and C hemistry - challengeOrdered By: SYSTEM SYSTEM on 06-19-2025 Albumin BCP dye [Mass/Vol] 2.9 G/dL Low 3.2 - 4.8 G/dL ADM SS Albumin/Globulin [Mass ratio] 0.9 {ratio} Normal 0.9 - 1.6 ratio AH ADM SS ALP [Catalytic activity/Vol] 76 U/L Normal 38 - 126 U/L ADM SS ALT No additional P-5'-P [Catalytic activity/Vol] 57 U/L High 10 - 49 U/L AH ADM SS AST [Catalytic activity/Vol] 36 U/L High 8 - 34 U/L ADM SS Bilirubin [Mass/Vol] 0.50 mg/dL Normal 0.20 - 1.20 mg/dL ADM SS Comment on above: Interpretive Data: U se of this assay is not recommended for patients undergoing treatment with eltrombopag due to the potential for falsely elevated results. Protein [Mass/Vol] 6.1 G/dL Normal 5.7 - 8.2 G/dL ADM SS No Panel InformationOrdered By: SYSTEM SYSTEM on 06-19-2025 Globulin 3.2 G/dL Normal 2.5 - 4.2 G/dL ADM SS XR CHEST 1 VIEWon 06-19-2025 XR CHEST 1 VIEW ORIGINAL EXAMINATION: ONE XRAY VIEW OF THE CHEST 06/19/2025 7:59 am COMPARISON: Chest x-ray 06/18/2025, 06/17/2025. HISTORY: ORDERING SYSTEM PROVIDED HISTORY: Reason for Exam: Pulmonary edema follow up FINDINGS: Interval removal of endotracheal and enteric tubes. Cardiomediastinal silhouette is stable. Atherosclerotic calcifications are noted within the aorta. The lungs are hyperinflated with chronic coarsening of the interstitial markings consistent with emphysema. No focal consolidation, large pleural effusion or pneumothorax. Osseous structures appear intact. IMPRESSION: No acute radiographic findings. Emphysema Interpreted by: Bello Aguirre Preliminary Report By: Bello Aguirre Electronically signed By Bello Aguirre Dictated Date: 06/19/2025 8:05:30 AM Prelim Date: 06/19/2025 8:06:42 AM Sign Date: 06/19/2025 8:06:42 AM Ordering Provider: ADRIANA Soto [facility] .Auto Diffon 06-18-2025 Basophil, Absolute 0.0 10 3/mcL Normal 0.0-0.3 [facility] Comment on above: Performed By: #### B G #### [address] [address] Basophils/100 WBC (Bld) 0.1 % Normal 0.0-2.5 [facility] Comment on above: Performed By: #### B G #### [address] [address] Eosinophil, Absolute 0.0 10 3/mcL Normal 0.0-0.7 [facility] Comment on above: Performed By: #### B G #### [address] [address] Eosinophils/100 WBC (Bld) 0.0 % Normal 0.0-6.0 [facility] Comment on above: Performed By: #### B G #### [address] [address] Lymphocyte, Absolute 0.6 10 3/mcL Low 0.9-4.3 [facility] Comment on above: Performed By: #### B G #### [address] [address] Lymphocytes/100 WBC (Bld) 8.9 % Low 20.0-40.0 [facility] Comment on above: Performed By: #### B G #### [place] [address] Monocyte, Absolute 0.3 10 3/mcL Normal 0.1-1.4 [facility] Comment on above: Performed By: #### B G #### [address] [address] Monocytes/100 WBC (Bld) 4.4 % Normal 2.0-13.0 [facility] Comment on above: Performed By: #### B G #### [place] [id number] Neutrophils/100 WBC (Bld) 86.6 % High 50.0-75.0 [facility] Comment on above: Performed By: #### B G #### [place] [address] .GFRon 06-18-2025 Estimated Glomerular Filtration Rate 59 ml/min/1.73sqm Normal [facility] Comment on above: Result Comment: Stages of Chronic Kidney Disease (CKD) Stage Description eGFR(ml/min/1.73 sq.m.) CKD 1 Normal kidney function or >=90 normal kindney function with possible kidney damage (ex. Proteinuria) CKD 2 Kidney damage with mild loss 60-89 of kidney function CKD 3a Mild to moderate loss of kidney 45-59 function CKD 3b Moderate to severe loss of 30-44 of kindey function CKD 4 Severe loss of kidney function 15-29 CKD 5 Kidney failure <15 Note: (go live 2024) the eGFR calculation was updated to the 2020 CKD-EPI creatinine equation without a race factor to calculate the eGFR results. Performed By: #### B G #### [address] [address] .NEUABSon 06-18-2025 Neutrophil, Absolute 6.0 10 3/mcL Normal 2.3-8.1 [facility] Comment on above: Performed By: #### B G #### [place] [id number] APTTon 06-18-2025 aPTT Coag (Bld) [Time] 68.1 s High 25.0-35.0 [facility] Comment on above: Result Comment: For Heparin anticoagulation therapy, the recommended therapeutic range is: 54-77 seconds (APTT Correlation with Anti-Xa therapeutic range of 0.3-0.7 units/ml). PLEASE REFERENCE THE PHARMACY PROTOCOL FOR DOSING. Performed By: #### A PTT ####[place] [address] aPTT Coag (Bld) [Time] 40.6 s High 25.0-35.0 [facility] Comment on above: Result Comment: For Heparin anticoagulation therapy, the recommended therapeutic range is: 54-77 seconds (APTT Correlation with Anti-Xa therapeutic range of 0.3-0.7 units/ml). PLEASE REFERENCE THE PHARMACY PROTOCOL FOR DOSING. Performed By: #### D RUGS #### [place] [id number] aPTT Coag (Bld) [Time] 51.7 s High 25.0-35.0 [facility] Comment on above: Result Comment: For Heparin anticoagulation therapy, the recommended therapeutic range is: 54-77 seconds (APTT Correlation with Anti-Xa therapeutic range of 0.3-0.7 units/ml). PLEASE REFERENCE THE PHARMACY PROTOCOL FOR DOSING. Performed By: #### L AC #### [place] [address] BGon 06-18-2025 Base excess Calc (Bld) [Moles/Vol] 2.9 mmol/L Normal [facility] Comment on above: Performed By: #### B G #### [address] [address] CO2 [Moles/Vol] 27.8 mmol/L Normal 22.0-30.0 [facility] Comment on above: Performed By: #### B G #### [address] [address] HCO3 (Bld) [Moles/Vol] 26.6 mmol/L Normal 21.0-29.0 [facility] Comment on above: Performed By: #### B G #### [place] [id number] Oxygen (Bld) [Partial pressure] 98.2 mm[Hg] Normal 74.0-108.0 [facility] Comment on above: Performed By: #### B G #### [place] [id number] Oxygen saturation in Blood 97.1 % High 92.0-96.0 [facility] Comment on above: Performed By: #### B G #### [address] [address] pCO2 37.4 mmHg Normal 32.0-46.0 [facility] Comment on above: Performed By: #### B G #### [place] [id number] pH (Bld) 7.470 [pH] High 7.380-7.460 [facility] Comment on above: Performed By: #### B G #### [address] [address] BMPon 06-18-2025 BUN/Creatinine Ratio 31.4 ratio High 10.0-22.0 [facility] Comment on above: Performed By: #### B G #### [place] [id number] Calcium [Mass/Vol] 8.8 mg/dL Normal 8.7-10.4 [facility] Comment on above: Performed By: #### B G #### [place] [id number] Chloride [Moles/Vol] 105 mmol/L Normal 98-110 [facility] Comment on above: Performed By: #### B G #### [place] [id number] CO2 [Moles/Vol] 31 mmol/L Normal 22-32 [facility] Comment on above: Performed By: #### B G #### [place] [id number] Creatinine [Mass/Vol] 1.02 mg/dL Normal 0.50-1.20 [facility] Comment on above: Result Comment: Test ing performed on Affashion analyzer using enzymatic creatinine methodology. Performed By: #### B G #### [place] [id number] Electrolyte Balance 7.0 mEq/L Normal 4.0-15.0 [facility] Comment on above: Performed By: #### B G #### [address] [address] Glucose [Mass/Vol] 145 mg/dL High 82-115 [facility] Comment on above: Performed By: #### B G #### [address] [address] Potassium [Moles/Vol] 3.6 mmol/L Normal 3.5-5.0 [facility] Comment on above: Performed By: #### B G #### [address] [address] Sodium [Moles/Vol] 143 mmol/L Normal 136-145 [facility] Comment on above: Performed By: #### B G #### [address] [address] Urea nitrogen [Mass/Vol] 32.0 mg/dL High 8.0-22.0 [facility] Comment on above: Performed By: #### B G #### [address] [address] CAIONon 06-18-2025 Calcium Ionized 1.09 mmol/L Low 1.12-1.32 [facility] Comment on above: Performed By: #### B G #### [address] [address] CBCon 06-18-2025 Erythrocyte distribution width (RBC) [Ratio] 14.4 % Normal 11.5-15.5 [facility] Comment on above: Performed By: #### B G #### [place] [id number] Hematocrit (Bld) [Volume fraction] 33.0 % Low 34.0-46.0 [facility] Comment on above: Performed By: #### B G #### [place] [id number] Hgb 11.0 G/dL Low 12.0-16.0 [facility] Comment on above: Performed By: #### B G #### [place] [id number] MCH (RBC) [Entitic mass] 29.4 pg Normal 27.0-33.0 [facility] Comment on above: Performed By: #### B G #### [place] [address] MCHC 33.4 G/dL Normal 32.0-36.0 [facility] Comment on above: Performed By: #### B G #### [place] [address] MCV (RBC) [Entitic vol] 88.0 fL Normal 80.0-99.0 [facility] Comment on above: Performed By: #### B G #### [place] [address] Platelet 268 10 3/mcL Normal 150-450 [facility] Comment on above: Performed By: #### B G #### [place] [address] Platelet mean volume (Bld) [Entitic vol] 7.7 fL Normal 6.6-10.5 [facility] Comment on above: Performed By: #### B G #### [place] [address] RBC 3.75 10 6/mcL Low 4.10-5.30 [facility] Comment on above: Performed By: #### B G #### [place] [address] WBC 6.9 10 3/mcL Normal 4.5-10.8 [facility] Comment on above: Performed By: #### B G #### [place] [address] LABORATORYOrdered By: Shelbie freitas on 06-18-2025 Blood Glucose Testing Reason Routine (06/18/25 11:16 PM) [facility] Glucose [Mass/Vol] 137 mg/dL High 82 - 115 mg/dL [facility] Blood Glucose Testing Reason Routine (06/18/25 7:15 PM) [facility] Glucose [Mass/Vol] 151 mg/dL High 82 - 115 mg/dL [facility] Blood Glucose Testing Reason Routine (06/18/25 4:00 PM) [facility] LABORATORYOrdered By: Rohit sarabia on 06-18-2025 CO2 [Moles/Vol] 27.8 mmol/L Normal 22.0 - 30.0 mmol/L [facility] HCO3 (Bld) [Moles/Vol] 26.6 mmol/L Normal 21.0 - 29.0 mmol/L [facility] Oxygen (Bld) [Partial pressure] 98.2 mm[Hg] Normal 74.0 - 108.0 mm Hg [facility] pCO2 37.4 mm[Hg] Normal 32.0 - 46.0 mm Hg [facility] pH (Bld) 7.470 [pH] High 7.380 - 7.460 [facility] Sodium [Moles/Vol] 2.9 mmol/L Invalid Interpretation Code [facility] Calcium Ionized 1.09 mmol/L Low 1.12 - 1.32 mmol/L [facility] MGon 06-18-2025 Magnesium [Mass/Vol] 2.5 mg/dL High 1.6-2.4 [facility] Comment on above: Performed By: #### B G #### [place] [address] XR CHEST 1 VIEWon 06-18-2025 XR CHEST 1 VIEW ORIGINAL EXAMINATION: ONE XRAY VIEW OF THE CHEST 06/18/2025 6:44 am COMPARISON: Chest x-ray on 06/17/2025 HISTORY: ORDERING SYSTEM PROVIDED HISTORY: Reason for Exam: ventilator FINDINGS: The endotracheal tube tip is 2.5 cm above the steve. Enteric tube passes down the esophagus into the stomach. The heart size is normal. The lungs are hyperexpanded. Chronic coarse interstitial markings are unchanged. There is no acute lung infiltrate. No pleural fluid or pneumothorax is present. IMPRESSION: 1. Chronic obstructive pulmonary disease. 2. No acute cardiopulmonary process. Interpreted by: Genaro No MD Preliminary Report By: Genaro No MD Electronically signed By Genaro No MD Dictated Date: 06/18/2025 7:11:23 AM Prelim Date: 06/18/2025 7:12:41 AM Sign Date: 06/18/2025 7:12:41 AM Ordering Provider: ARIAS Soto [facility] .Auto Diffon 06-17-2025 Basophil, Absolute 0.1 10 3/mcL Normal 0.0-0.3 [facility] Comment on above: Performed By: #### L AC #### [address] [address] Basophils/100 WBC (Bld) 0.9 % Normal 0.0-2.5 [facility] Comment on above: Performed By: #### L AC #### [address] [address] Eosinophil, Absolute 0.1 10 3/mcL Normal 0.0-0.7 [facility] Comment on above: Performed By: #### L AC #### [address] [address] Eosinophils/100 WBC (Bld) 0.8 % Normal 0.0-6.0 [facility] Comment on above: Performed By: #### L AC #### [address] [address] Lymphocyte, Absolute 1.6 10 3/mcL Normal 0.9-4.3 [facility] Comment on above: Performed By: #### L AC #### [address] [address] Lymphocytes/100 WBC (Bld) 17.8 % Low 20.0-40.0 [facility] Comment on above: Performed By: #### L AC #### [address] [address] Monocyte, Absolute 0.7 10 3/mcL Normal 0.1-1.4 [facility] Comment on above: Performed By: #### L AC #### [address] [address] Monocytes/100 WBC (Bld) 8.1 % Normal 2.0-13.0 [facility] Comment on above: Performed By: #### L AC #### [place] [address] Neutrophils/100 WBC (Bld) 72.4 % Normal 50.0-75.0 [facility] Comment on above: Performed By: #### L AC #### [place] [id number] .GFRon 06-17-2025 Estimated Glomerular Filtration Rate 57 ml/min/1.73sqm Normal [facility] Comment on above: Result Comment: Stages of Chronic Kidney Disease (CKD) Stage Description eGFR(ml/min/1.73 sq.m.) CKD 1 Normal kidney function or >=90 normal kindney function with possible kidney damage (ex. Proteinuria) CKD 2 Kidney damage with mild loss 60-89 of kidney function CKD 3a Mild to moderate loss of kidney 45-59 function CKD 3b Moderate to severe loss of 30-44 of kindey function CKD 4 Severe loss of kidney function 15-29 CKD 5 Kidney failure <15 Note: (go live 2024) the eGFR calculation was updated to the 2020 CKD-EPI creatinine equation without a race factor to calculate the eGFR results. Performed By: #### L AC #### [place] [address] .NEUABSon 06-17-2025 Neutrophil, Absolute 6.5 10 3/mcL Normal 2.3-8.1 [facility] Comment on above: Performed By: #### L AC #### [place] [address] APTTon 06-17-2025 aPTT Coag (Bld) [Time] 46.8 s High 25.0-35.0 [facility] Comment on above: Result Comment: For Heparin anticoagulation therapy, the recommended therapeutic range is: 54-77 seconds (APTT Correlation with Anti-Xa therapeutic range of 0.3-0.7 units/ml). PLEASE REFERENCE THE PHARMACY PROTOCOL FOR DOSING. Performed By: #### A PTT #### [place] [address] aPTT Coag (Bld) [Time] 40.2 s High 25.0-35.0 [facility] Comment on above: Result Comment: For Heparin anticoagulation therapy, the recommended therapeutic range is: 54-77 seconds (APTT Correlation with Anti-Xa therapeutic range of 0.3-0.7 units/ml). PLEASE REFERENCE THE PHARMACY PROTOCOL FOR DOSING. Performed By: #### A PTT #### [place] [address] aPTT Coag (Bld) [Time] 54.3 s High 25.0-35.0 [facility] Comment on above: Result Comment: For Heparin anticoagulation therapy, the recommended therapeutic range is: 54-77 seconds (APTT Correlation with Anti-Xa therapeutic range of 0.3-0.7 units/ml). PLEASE REFERENCE THE PHARMACY PROTOCOL FOR DOSING. Performed By: #### A PTT ####[place] [id number] aPTT Coag (Bld) [Time] 71.7 s High 25.0-35.0 [facility] Comment on above: Result Comment: For Heparin anticoagulation therapy, the recommended therapeutic range is: 54-77 seconds (APTT Correlation with Anti-Xa therapeutic range of 0.3-0.7 units/ml). PLEASE REFERENCE THE PHARMACY PROTOCOL FOR DOSING. Performed By: #### A PTT ####[place] [id number] BGon 06-17-2025 Base excess Calc (Bld) [Moles/Vol] 1.3 mmol/L Normal [facility] Comment on above: Performed By: #### L AC #### [place] [id number] CO2 [Moles/Vol] 26.5 mmol/L Normal 22.0-30.0 [facility] Comment on above: Performed By: #### L AC #### [address] [address] HCO3 (Bld) [Moles/Vol] 25.3 mmol/L Normal 21.0-29.0 [facility] Comment on above: Performed By: #### L AC #### [place] [id number] Oxygen (Bld) [Partial pressure] 104.6 mm[Hg] Normal 74.0-108.0 [facility] Comment on above: Performed By: #### L AC #### [place] [address] Oxygen saturation in Blood 97.7 % High 92.0-96.0 [facility] Comment on above: Performed By: #### L AC #### [place] [id number] pCO2 38.0 mmHg Normal 32.0-46.0 [facility] Comment on above: Performed By: #### L AC #### [place] [address] pH (Bld) 7.442 [pH] Normal 7.380-7.460 [facility] Comment on above: Performed By: #### L AC #### [place] [address] CBCon 06-17-2025 Erythrocyte distribution width (RBC) [Ratio] 14.0 % Normal 11.5-15.5 [facility] Comment on above: Performed By: #### L AC #### [place] [address] Hematocrit (Bld) [Volume fraction] 32.8 % Low 34.0-46.0 [facility] Comment on above: Performed By: #### L AC #### [place] [address] Hgb 10.9 G/dL Low 12.0-16.0 [facility] Comment on above: Performed By: #### L AC #### [place] [address] MCH (RBC) [Entitic mass] 29.4 pg Normal 27.0-33.0 [facility] Comment on above: Performed By: #### L AC #### [place] [address] MCHC 33.2 G/dL Normal 32.0-36.0 [facility] Comment on above: Performed By: #### L AC #### [place] [address] MCV (RBC) [Entitic vol] 88.5 fL Normal 80.0-99.0 [facility] Comment on above: Performed By: #### L AC #### [place] [address] Platelet 240 10 3/mcL Normal 150-450 [facility] Comment on above: Performed By: #### L AC #### [place] [address] Platelet mean volume (Bld) [Entitic vol] 7.5 fL Normal 6.6-10.5 [facility] Comment on above: Performed By: #### L AC #### [place] [address] RBC 3.71 10 6/mcL Low 4.10-5.30 [facility] Comment on above: Performed By: #### L AC #### [place] [address] WBC 9.0 10 3/mcL Normal 4.5-10.8 [facility] Comment on above: Performed By: #### L AC #### [place] [address] CMPon 06-17-2025 Albumin Level 2.8 G/dL Low 3.2-4.8 [facility] Comment on above: Performed By: #### L AC #### [place] [address] Albumin/Globulin [Mass ratio] 1.0 {ratio} Normal 0.9-1.6 [facility] Comment on above: Performed By: #### L AC #### [place] [address] ALP [Catalytic activity/Vol] 90 U/L Normal 38-126 [facility] Comment on above: Performed By: #### L AC #### [place] [id number] ALT [Catalytic activity/Vol] 85 U/L High 10-49 [facility] Comment on above: Performed By: #### L AC #### [place] [id number] AST [Catalytic activity/Vol] 97 U/L High 8-34 [facility] Comment on above: Performed By: #### L AC #### [address] [address] Bili Total 0.40 mg/dL Normal 0.20-1.20 [facility] Comment on above: Result Comment: Use of this assay is not recommended for patients undergoing treatment with eltrombopag due to the potential for falsely elevated results. Performed By: #### L AC #### [place] [id number] BUN/Creatinine Ratio 28.6 ratio High 10.0-22.0 [facility] Comment on above: Performed By: #### L AC #### [place] [id number] Calcium [Mass/Vol] 8.5 mg/dL Low 8.7-10.4 [facility] Comment on above: Performed By: #### L AC #### [place] [id number] Chloride [Moles/Vol] 103 mmol/L Normal 98-110 [facility] Comment on above: Performed By: #### L AC #### [place] [id number] CO2 [Moles/Vol] 28 mmol/L Normal 22-32 [facility] Comment on above: Performed By: #### L AC #### [place] [id number] Creatinine [Mass/Vol] 1.05 mg/dL Normal 0.50-1.20 [facility] Comment on above: Result Comment: Test ing performed on Affashion analyzer using enzymatic creatinine methodology. Performed By: #### L AC #### [place] [id number] Electrolyte Balance 8.0 mEq/L Normal 4.0-15.0 [facility] Comment on above: Performed By: #### L AC #### [place] [id number] Globulin 2.8 G/dL Normal 2.5-4.2 [facility] Comment on above: Performed By: #### L AC #### [place] [id number] Glucose [Mass/Vol] 106 mg/dL Normal 82-115 [facility] Comment on above: Performed By: #### L AC #### [address] [address] Potassium [Moles/Vol] 4.0 mmol/L Normal 3.5-5.0 [facility] Comment on above: Performed By: #### L AC #### [address] [address] Sodium [Moles/Vol] 139 mmol/L Normal 136-145 [facility] Comment on above: Performed By: #### L AC #### [address] [address] Total Protein 5.6 G/dL Low 5.7-8.2 [facility] Comment on above: Performed By: #### L AC #### [address] [address] Urea nitrogen [Mass/Vol] 30.0 mg/dL High 8.0-22.0 [facility] Comment on above: Performed By: #### L AC #### [address] [address] LABORATORYOrdered By: SYSTEM SYSTEM on 06-17-2025 Troponin I.cardiac DL <= 0.01 ng/mL [Mass/Vol] 713 ng/L High 0 - 34 ng/L [facility] Comment on above: Interpretive Data: High Sensitive Troponin I Reference Ranges: Female: 0-34 ng/L Male: 0-54 ng/L Testing performed on Apozy analyzer using direct chemiluminescent technology. LABORATORYOrdered By: Gabriela Lua on 06-17-2025 CO2 [Moles/Vol] 26.5 mmol/L Normal 22.0 - 30.0 mmol/L [facility] HCO3 (Bld) [Moles/Vol] 25.3 mmol/L Normal 21.0 - 29.0 mmol/L [facility] Oxygen (Bld) [Partial pressure] 104.6 mm[Hg] Normal 74.0 - 108.0 mm Hg [facility] pCO2 38.0 mm[Hg] Normal 32.0 - 46.0 mm Hg [facility] pH (Bld) 7.442 [pH] Normal 7.380 - 7.460 [facility] Sodium [Moles/Vol] 1.3 mmol/L Invalid Interpretation Code [facility] MGon 06-17-2025 Magnesium [Mass/Vol] 2.1 mg/dL Normal 1.6-2.4 [facility] Comment on above: Performed By: #### L AC #### [address] [address] TROPHSon 06-17-2025 High Sensitivity Troponin I 713 ng/L High 0-34 [facility] Comment on above: Result Comment: High Sensitive Troponin I Reference Ranges: Female: 0-34 ng/L Male: 0-54 ng/L Testing performed on Apozy analyzer using direct chemiluminescent technology. Performed By: #### C BC, ADIFF, ANEU, APTT, CMP, HFP, GFR #### [address] [address] XR CHEST 1 VIEWon 06-17-2025 XR CHEST 1 VIEW ORIGINAL EXAMINATION: ONE XRAY VIEW OF THE CHEST 06/17/2025 6:53 am COMPARISON: Chest x-ray on 06/16/2025 HISTORY: ORDERING SYSTEM PROVIDED HISTORY: Reason for Exam: ventilator, concern cap FINDINGS: The endotracheal tube tip is 4.5 cm above the steve. Enteric tube tip and side port are in the stomach. The heart size is normal. The lungs are hyperexpanded. Coarse interstitial lung markings appear chronic and unchanged compared with exam from 09/02/2023. No pleural fluid or pneumothorax is present. IMPRESSION: 1. Chronic obstructive pulmonary disease. 2. No acute cardiopulmonary process. Interpreted by: Genaro No MD Preliminary Report By: Genaro No MD Electronically signed By Genaro No MD Dictated Date: 06/17/2025 6:56:27 AM Prelim Date: 06/17/2025 6:58:17 AM Sign Date: 06/17/2025 6:58:17 AM Ordering Provider: DEVIN Soto [facility] .Auto Diffon 06-16-2025 Basophil, Absolute 0.0 10 3/mcL Normal 0.0-0.3 [facility] Comment on above: Performed By: #### L AC #### [address] [address] Basophils/100 WBC (Bld) 0.2 % Normal 0.0-2.5 [facility] Comment on above: Performed By: #### L AC #### [address] [address] Eosinophil, Absolute 0.0 10 3/mcL Normal 0.0-0.7 [facility] Comment on above: Performed By: #### L AC #### [address] [address] Eosinophils/100 WBC (Bld) 0.0 % Normal 0.0-6.0 [facility] Comment on above: Performed By: #### L AC #### [address] [address] Lymphocyte, Absolute 0.8 10 3/mcL Low 0.9-4.3 [facility] Comment on above: Performed By: #### L AC #### [address] [address] Lymphocytes/100 WBC (Bld) 6.4 % Low 20.0-40.0 [facility] Comment on above: Performed By: #### L AC #### [address] [address] Monocyte, Absolute 0.5 10 3/mcL Normal 0.1-1.4 [facility] Comment on above: Performed By: #### L AC #### [address] [address] Monocytes/100 WBC (Bld) 4.3 % Normal 2.0-13.0 [facility] Comment on above: Performed By: #### L AC #### [address] [address] Neutrophils/100 WBC (Bld) 89.1 % High 50.0-75.0 [facility] Comment on above: Performed By: #### L AC #### [address] [address] Basophil, Absolute 0.0 10 3/mcL Normal 0.0-0.3 [facility] Comment on above: Performed By: #### L AC #### [address] [address] Basophils/100 WBC (Bld) 0.1 % Normal 0.0-2.5 [facility] Comment on above: Performed By: #### L AC #### [facility] [address] [place] [address] Eosinophil, Absolute 0.0 10 3/mcL Normal 0.0-0.7 [facility] Comment on above: Performed By: #### L AC #### [address] [address] Eosinophils/100 WBC (Bld) 0.0 % Normal 0.0-6.0 [facility] [facility] Comment on above: Performed By: #### L AC #### [address] [address] Lymphocyte, Absolute 0.4 10 3/mcL Low 0.9-4.3 [facility] Comment on above: Performed By: #### L AC #### [address] [address] Lymphocytes/100 WBC (Bld) 1.9 % Low 20.0-40.0 [facility] Comment on above: Performed By: #### L AC #### [address] [address] Monocyte, Absolute 0.5 10 3/mcL Normal 0.1-1.4 [facility] Comment on above: Performed By: #### L AC #### [address] [address] Monocytes/100 WBC (Bld) 2.4 % Normal 2.0-13.0 [facility] Comment on above: Performed By: #### L AC #### [address] [address] Neutrophils/100 WBC (Bld) 95.6 % High 50.0-75.0 [facility] Comment on above: Performed By: #### L AC #### [address] [address] .GFRon 06-16-2025 Estimated Glomerular Filtration Rate 59 ml/min/1.73sqm Normal [facility] Comment on above: Result Comment: Stages of Chronic Kidney Disease (CKD) Stage Description eGFR(ml/min/1.73 sq.m.) CKD 1 Normal kidney function or >=90 normal kindney function with possible kidney damage (ex. Proteinuria) CKD 2 Kidney damage with mild loss 60-89 of kidney function CKD 3a Mild to moderate loss of kidney 45-59 function CKD 3b Moderate to severe loss of 30-44 of kindey function CKD 4 Severe loss of kidney function 15-29 CKD 5 Kidney failure <15 Note: (go live 2024) the eGFR calculation was updated to the 2020 CKD-EPI creatinine equation without a race factor to calculate the eGFR results. Performed By: #### L AC #### [place] [address] .NEUABSon 06-16-2025 Neutrophil, Absolute 10.8 10 3/mcL High 2.3-8.1 [facility] Comment on above: Performed By: #### L AC #### [place] [address] Neutrophil, Absolute 19.3 10 3/mcL High 2.3-8.1 [facility] Comment on above: Performed By: #### L AC #### [place] [address] APTTon 06-16-2025 aPTT Coag (Bld) [Time] 33.8 s Normal 25.0-35.0 [facility] Comment on above: Result Comment: For Heparin anticoagulation therapy, the recommended therapeutic range is: 54-77 seconds (APTT Correlation with Anti-Xa therapeutic range of 0.3-0.7 units/ml). PLEASE REFERENCE THE PHARMACY PROTOCOL FOR DOSING. Performed By: #### C BC, ADIFF, ANEU, APTT, CMP, HFP, GFR #### [place] [address] aPTT Coag (Bld) [Time] 29.1 s Normal 25.4 - 38.[address] [facility] Comment on above: Performed By: #### 2 [id number] ####[facility],[address] [place] [address] [facility] 06-16-2025 Base excess Calc (Bld) [Moles/Vol] -1.1000 mmol/L Normal [facility] Comment on above: Performed By: #### D RUGS #### [address] [address] CO2 [Moles/Vol] 25.6 mmol/L Normal 22.0-30.0 [facility] Comment on above: Performed By: #### D RUGS #### [address] [address] HCO3 (Bld) [Moles/Vol] 24.3 mmol/L Normal 21.0-29.0 [facility] Comment on above: Performed By: #### D RUGS #### [place] [id number] Oxygen (Bld) [Partial pressure] 97.9 mm[Hg] Normal 74.0-108.0 [facility] Comment on above: Performed By: #### D RUGS #### [place] [address] Oxygen saturation in Blood 97.1 % High 92.0-96.0 [facility] Comment on above: Performed By: #### D RUGS #### [place] [id number] pCO2 43.4 mmHg Normal 32.0-46.0 [facility] Comment on above: Performed By: #### D RUGS #### [place] [id number] pH (Bld) 7.366 [pH] Low 7.380-7.460 [facility] Comment on above: Performed By: #### D RUGS #### [address] [address] CBCon 06-16-2025 Erythrocyte distribution width (RBC) [Ratio] 13.9 % Normal 11.5-15.5 [facility] Comment on above: Performed By: #### L AC #### [place] [id number] Hematocrit (Bld) [Volume fraction] 34.3 % Normal 34.0-46.0 [facility] Comment on above: Performed By: #### L AC #### [place] [address] Hgb 11.3 G/dL Low 12.0-16.0 [facility] Comment on above: Performed By: #### L AC #### [place] [id number] MCH (RBC) [Entitic mass] 29.1 pg Normal 27.0-33.0 [facility] Comment on above: Performed By: #### L AC #### [place] [address] MCHC 33.0 G/dL Normal 32.0-36.0 [facility] Comment on above: Performed By: #### L AC #### [place] [address] MCV (RBC) [Entitic vol] 88.4 fL Normal 80.0-99.0 [facility] Comment on above: Performed By: #### L AC #### [place] [id number] Platelet 263 10 3/mcL Normal 150-450 [facility] Comment on above: Performed By: #### L AC #### [place] [id number] Platelet mean volume (Bld) [Entitic vol] 7.4 fL Normal 6.6-10.5 [facility] Comment on above: Performed By: #### L AC #### [place] [id number] RBC 3.88 10 6/mcL Low 4.10-5.30 [facility] Comment on above: Performed By: #### L AC #### [place] [id number] WBC 12.1 10 3/mcL High 4.5-10.8 [facility] Comment on above: Performed By: #### L AC #### [place] [id number] Erythrocyte distribution width (RBC) [Ratio] 14.4 % Normal 11.5-15.5 [facility] Comment on above: Performed By: #### L AC #### [place] [id number] Hematocrit (Bld) [Volume fraction] 38.4 % Normal 34.0-46.0 [facility] Comment on above: Performed By: #### L AC #### [place] [address] Hgb 12.4 G/dL Normal 12.0-16.0 [facility] Comment on above: Performed By: #### L AC #### [place] [address] MCH (RBC) [Entitic mass] 28.7 pg Normal 27.0-33.0 [facility] Comment on above: Performed By: #### L AC #### [place] [address] MCHC 32.3 G/dL Normal 32.0-36.0 [facility] Comment on above: Performed By: #### L AC #### [place] [address] MCV (RBC) [Entitic vol] 88.8 fL Normal 80.0-99.0 [facility] Comment on above: Performed By: #### L AC #### [place] [address] Platelet 297 10 3/mcL Normal 150-450 [facility] Comment on above: Performed By: #### L AC #### [place] [address] Platelet mean volume (Bld) [Entitic vol] 7.5 fL Normal 6.6-10.5 [facility] Comment on above: Performed By: #### L AC #### [place] [id number] RBC 4.32 10 6/mcL Normal 4.10-5.30 [facility] Comment on above: Performed By: #### L AC #### [place] [id number] WBC 20.2 10 3/mcL High 4.5-10.8 [facility] Comment on above: Performed By: #### L AC #### [facility] [address] [place] [address] CBC + DIFFon 06-16-2025 Baso # 0.04 x10EE3/UL Normal 0.00 - 0.10 [facility] Comment on above: Performed By: #### 2 33581 ####[facility],[address] [place] [address] Basophils/100 WBC (Bld) 0.3 % Normal 0.0 - 2.[address] [facility] Comment on above: Performed By: #### 2 96547 ####[facility],[address] [place] [address] CBC + DIFF Normal [facility] Comment on above: Result Comment: CBC- COMPLETE BLOOD COUNT Performed By: #### 2 95971 ####[facility],[address] [place] [address] EO # 0.19 x10EE3/UL Normal 0.00 - 0.50 [facility] Comment on above: Performed By: #### 2 37494 ####[facility],[address] [place] [address] Eosinophils/100 WBC (Bld) 1.6 % Normal 0.0 - 7.[address] [facility] Comment on above: Performed By: #### 2 68058 ####[facility],[address] [place], [place] [id number] Erythrocyte distribution width (RBC) [Ratio] 13.9 % Normal 12.0 - 15.[address] [facility] Comment on above: Performed By: #### 2 38558 ####[facility],[address] [place] [address] Hematocrit (Bld) [Volume fraction] 39.0 % Normal 34.0 - 46.[address] [facility] Comment on above: Performed By: #### 2 87774 ####[facility],[address] [place] [address] Hemoglobin (Bld) [Mass/Vol] 13.5 g/dL Normal 12.0 - 16.[address] [facility] Comment on above: Performed By: #### 2 82514 ####[facility],[address] [place] [address] Lymph # 4.60 x10EE3/UL High 0.80 - 2.80 [facility] Comment on above: Performed By: #### 2 29671 ####[facility],[address] [place] [address] Lymphocytes/100 WBC (Bld) 38.1 % Normal 20.0 - 45.[address] [facility] Comment on above: Performed By: #### 2 48579 ####[facility],[address] [place] [address] MANUAL DIFF N/A Normal [facility] Comment on above: Performed By: #### 2 68195 ####[facility],[address] [place] [address] MCH (RBC) [Entitic mass] 31 pg Normal 27 - [address] [facility] Comment on above: Performed By: #### 2 10966 ####[facility],[address] [place] [address] MCHC 35 X10 3 Normal 32 - [address] [facility] Comment on above: Performed By: #### 2 15394 ####[facility],[address] [place] [address] MCV (RBC) [Entitic vol] 91 fL Normal 80 - [address] [facility] Comment on above: Performed By: #### 2 63402 ####[facility],[address] [place] [address] Doddridge # 0.64 x10EE3/UL Normal 0.20 - 1.00 [facility] Comment on above: Performed By: #### 2 60997 ####[facility],[address] [place] [address] MONOS % 5.3 % Normal 0.0 - 10.[address] [facility] Comment on above: Performed By: #### 2 65275 ####[facility],[address] [place] [address] Morphology Dandy (Bld) [Interp] N/A Normal [facility] Comment on above: Performed By: #### 2 98474 ####[facility],[address] [place] [address] Neut # 6.61 x10EE3/UL Normal 1.50 - 7.10 [facility] Comment on above: Performed By: #### 2 65317 ####[place] [id number] Neutrophils/100 WBC (Bld) 54.7 % Normal 46.0 - 76.[address] [facility] Comment on above: Performed By: #### 2 59638 ####[place] [address] PLATELET 365 x10EE3/UL Normal 150 - 450 [facility] Comment on above: Performed By: #### 2 81520 ####[place] [address] Platelet mean volume (Bld) [Entitic vol] 7.4 fL Normal 6.6 - 10.5 [facility] Comment on above: Result Comment: AUTO MATED DIFFERENTIAL Performed By: #### 2 21602 ####[facility],[address] [place], [place] [id number] RBC 4.31 x 10EE6/UL Normal 4.10 - 5.30 [facility] Comment on above: Performed By: #### 2 58343 ####[place] [id number] WBC 12.1 x 10EE3/UL High 4.5 - 10.8 [facility] Comment on above: Performed By: #### 2 61353 ####[facility],[address] [place] [address] CHEST 1 VIEWon 06-16-2025 CHEST 1 VIEW Normal [facility] CHEST 1 VIEW (PICC/ET PLACEM ENTon 06-16-2025 CHEST 1 VIEW (PICC/ET PLACEMENT Normal [facility] CMPon 06-16-2025 Albumin Level 3.5 G/dL Normal 3.2-4.8 [facility] Comment on above: Performed By: #### L AC #### [address] [address] Albumin/Globulin [Mass ratio] 1.0 {ratio} Normal 0.9-1.6 [facility] Comment on above: Performed By: #### L AC #### [address] [address] ALP [Catalytic activity/Vol] 135 U/L High 38-126 [facility] Comment on above: Performed By: #### L AC #### [address] [address] ALT [Catalytic activity/Vol] 133 U/L High 10-49 [facility] Comment on above: Performed By: #### L AC #### [address] [address] AST [Catalytic activity/Vol] 203 U/L High 8-34 [facility] Comment on above: Performed By: #### L AC #### [address] [address] Bili Total 0.30 mg/dL Normal 0.20-1.20 [facility] Comment on above: Result Comment: Use of this assay is not recommended for patients undergoing treatment with eltrombopag due to the potential for falsely elevated results. Performed By: #### L AC #### [address] [address] BUN/Creatinine Ratio 24.5 ratio High 10.0-22.0 [facility] Comment on above: Performed By: #### L AC #### [address] [address] Calcium [Mass/Vol] 9.2 mg/dL Normal 8.7-10.4 [facility] Comment on above: Performed By: #### L AC #### [address] [address] Chloride [Moles/Vol] 100 mmol/L Normal 98-110 [facility] Comment on above: Performed By: #### L AC #### [address] [address] CO2 [Moles/Vol] 26 mmol/L Normal 22-32 [facility] Comment on above: Performed By: #### L AC #### [address] [address] Creatinine [Mass/Vol] 1.02 mg/dL Normal 0.50-1.20 [facility] Comment on above: Result Comment: Test ing performed on Aff[employer] analyzer using enzymatic creatinine methodology. Performed By: #### L AC #### [address] [address] Electrolyte Balance 13.0 mEq/L Normal 4.0-15.0 [facility] Comment on above: Performed By: #### L AC #### [address] [address] Globulin 3.6 G/dL Normal 2.5-4.2 [facility] Comment on above: Performed By: #### L AC #### [address] [address] Glucose [Mass/Vol] 135 mg/dL High 82-115 [facility] Comment on above: Performed By: #### L AC #### [address] [address] Potassium [Moles/Vol] 3.2 mmol/L Low 3.5-5.0 [facility] Comment on above: Performed By: #### L AC #### [address] [address] Sodium [Moles/Vol] 139 mmol/L Normal 136-145 [facility] Comment on above: Performed By: #### L AC #### [address] [address] Total Protein 7.1 G/dL Normal 5.7-8.2 [facility] Comment on above: Performed By: #### L AC #### [facility] [address] [place] [address] Urea nitrogen [Mass/Vol] 25.0 mg/dL High 8.0-22.0 [facility] Comment on above: Performed By: #### L AC #### [facility] [address] [place] [address] CMP with eGFRon 06-16-2025 AGE 70 years Normal [facility] Comment on above: Performed By: #### 2 97962 ####[facility],[address] [place] [address] Albumin [Mass/Vol] 3.2 g/dL Low 3.4 - 5.0 [facility] Comment on above: Performed By: #### 2 95226 ####[facility],[address] [place] [address] Albumin/Globulin [Mass ratio] 0.7 {ratio} Low 0.9 - 1.[address] [facility] Comment on above: Performed By: #### 2 92582 ####[facility],[address] [place] [address] ALK PHOS 136 U/L High 46 - [address] [facility] Comment on above: Performed By: #### 2 07559 ####[facility],[address] [place] [address] ALT [Catalytic activity/Vol] 104 U/L High 16 - [address] [facility] Comment on above: Performed By: #### 2 87764 ####[facility],[address] [place] [address] Anion gap [Moles/Vol] 17 mmol/L Normal 10 - 20 [facility] Comment on above: Performed By: #### 2 97197 ####[facility],[address] [place] [address] AST [Catalytic activity/Vol] 145 U/L High 13 - [address] [facility] Comment on above: Performed By: #### 2 98129 ####[facility],[address] [place] [address] B/C RATIO 17 ratio Normal 0 - [address] [facility] Comment on above: Performed By: #### 2 03497 ####[facility],[address] [place] [address] Bilirubin [Mass/Vol] 0.7 mg/dL Normal 0.2 - 1.[address] [facility] Comment on above: Performed By: #### 2 26646 ####[facility],[address] [place] [address] Calcium [Mass/Vol] 9.0 mg/dL Normal 8.5 - 10.1 [facility] Comment on above: Performed By: #### 2 40405 ####[facility],[address] [place] [address] Chloride [Moles/Vol] 95 mmol/L Low 98 - [address] [facility] Comment on above: Performed By: #### 2 60053 ####[facility],[address] [place] [address] CMP with eGFR Normal [facility] Comment on above: Result Comment: COMP REHENSIVE METABOLIC PANEL Performed By: #### 2 59186 ####[facility],[address] [place] [address] CO2 [Moles/Vol] 28.5 mmol/L Normal 21.0 - 32.0 [facility] Comment on above: Performed By: #### 2 03129 ####[facility],[address] [place] [address] Creatinine [Mass/Vol] 1.55 mg/dL High 0.55 - 1.02 [facility] Comment on above: Performed By: #### 2 95614 ####[facility],[address] [place] [address] eGFR 33 ML/MINUTE Low 60 - 999 [facility] Comment on above: Performed By: #### 2 80143 ####[facility],[address] [place] [address] eGFR(AA) 40 ML/MINUTE Low 60 - 999 [facility] Comment on above: Result Comment: ACCO RDING TO THE NATIONAL KIDNEY DISEASE EDUCATION PROGRAM(NKDE), A NORMAL eGFRIS A VALUE GREATER THAN OR EQUAL TO 60 ML/MIN/1.73 SQ METERS.CHRONIC KIDNEY DISEASE: <60mL/MIN/1.73 SQ METERSKIDNEY FAILURE: <15mL/MIN/1.73 SQ METERSTHIS TEST SHOULD ONLY BE USED FOR PATIENTS 18 YEARS OF AGE AND OLDER. Performed By: #### 2 73606 ####[facility],[address] [place] [address] Globulin (S) [Mass/Vol] 4.3 g/dL High 1.5 - 3.[address] [facility] Comment on above: Performed By: #### 2 59399 ####[facility],[address] [place] [address] Glucose [Mass/Vol] 266 mg/dL High 74 - 106 [facility] Comment on above: Performed By: #### 2 24013 ####[facility],[address] [place] [address] Potassium [Moles/Vol] 4.0 mmol/L Normal 3.5 - 5.1 [facility] Comment on above: Performed By: #### 2 14514 ####[facility],[address] [place] [address] Protein [Mass/Vol] 7.5 g/dL Normal 6.4 - 8.2 [facility] Comment on above: Performed By: #### 2 14054 ####[facility],[address] [place] [address] Sodium [Moles/Vol] 136 mmol/L Normal 136 - 145 [facility] Comment on above: Performed By: #### 2 80286 ####[facility],[address] [place] [address] Urea nitrogen [Mass/Vol] 27 mg/dL High 7 - [address] [facility] Comment on above: Performed By: #### 2 81825 ####[facility],[address] [place] [address] CULTURE BLOOD [MARIA TERESA]on Microscopic examination of blood, culture CULTURE BLOOD [MARIA TERESA] _BLOOD CULTURE_ GO TO [employer] REPORTS AND ATTACHMENTS FOR SCANNED REPORT 06/24/25.56.DNP.COMPL ETE Normal [facility] Comment on above: Performed By: #### 2 04002 ####[facility],[address] [place] [address] Microscopic examination of blood, culture CULTURE BLOOD [MARIA TERESA] _BLOOD CULTURE_ GO TO [employer]I REPORTS AND ATTACHMENTS FOR SCANNED REPORT 06/24/25.55.DNP.COMPL ETE Normal [facility] Comment on above: Performed By: #### 2 66729 ####[facility],[address] [place] [address] CVFLURVon 06-16-2025 FLU A PCR Negative Normal Negative [facility] Comment on above: Result Comment: Note s 1990 Performed By: #### C VFLURV ####[place] [address] FLU B PCR Negative Normal Negative [facility] Comment on above: Result Comment: Note s 1990 Performed By: #### C VFLURV ####[place] [address] RSV PCR Negative Normal Negative [facility] Comment on above: Result Comment: Note s 1990 Performed By: #### C VFLURV ####[place] [address] SARS-CoV-2 (COVID-19) RNA ALEJANDRO+probe Ql (Unsp spec) Negative Normal Negative [facility] Comment on above: Result Comment: Note s 1990 Results from the Xpert Xpress SARS-CoV-2/Flu/RSV or Xpert Xpress SARS-CoV-2 only test should be correlated with the clinical history, epidemiological data, and other data available to the clinician evaluating the patient. Performance of the Xpert Xpress SARS-CoV-2/Flu/RSV or Xpert Xpress SARS-CoV-2 only test has only been established in nasopharyngeal swab specimens. Erroneous test results might occur from improper specimen collection; failure to follow the recommended sample collection, handling, and storage procedures; technical error; or sample mix-up.False negative results may occur if virus is present at levels below the analytical limit of detection. Viral nucleic acid may persist in vivo, independent of virus viability. Detection of analyte target(s) does not imply that the corresponding virus(es) are infectious or are the causative agents for clinical symptoms.Recent patient exposure to FluMist or other live attenuated influenza vaccines may cause inaccurate positive results. FDA Approved. Performed By: #### C VFLURV ####[facility] [place] [address] D-DIMER, QUANTITATIVEon 05-24 D-DIMER QUANT 5358 ng/ml High 0 - 230 [facility] Comment on above: Performed By: #### 2 03646 ####[facility],[address] [place], [place] [id number] D-DIMER, QUANTITATIVE Normal [facility] Comment on above: Result Comment: SILVANO T D-DIMER Performed By: #### 2 25871 ####[facility],[address] [place], [place] [id number] DRUGSon 06-16-2025 Acetaminophen [Mass/Vol] ug/mL Low 10.0-20.0 [facility] Comment on above: Performed By: #### D RUGS #### [facility] [address] [place] [address] Ethanol Level <10.0 [facility] Comment on above: Performed By: #### D RUGS #### [facility] [address] [place] [address] Salicylate Lvl (ds) <3.0 Low 10.0-25.0 [facility] Comment on above: Performed By: #### D RUGS #### [place] [address] Serum Drugs screened: See Below [facility] Comment on above: Result Comment: This drug screen is a presumptive screening only. No confirmation will be performed unless requested. Drugs included in the serum drug screen are: Threshold Ethanol 10.0 mg/dL Salicylate 2.0 mg/dl Acetaminophen 2.0 mcg/mL Testing has been performed FOR MEDICAL PURPOSES ONLY. Performed By: #### D RUGS #### [place] [address] DRUGUon 06-16-2025 Benzodiazepine (u) Positive Abnormal Negative [facility] Comment on above: Performed By: #### L AC #### [place] [address] Cannabinoid (u) Positive Abnormal Negative [facility] Comment on above: Performed By: #### L AC #### [place] [address] U pH Drug Scrn 6.0 Normal 5.0-8.0 [facility] Comment on above: Performed By: #### L AC #### [place] [address] Amphetamine (u) Negative Normal [facility] Comment on above: Performed By: #### L AC #### [place] [address] Barbiturate (u) Negative Normal [facility] Comment on above: Performed By: #### L AC #### [place] [address] Cocaine Ql (U) Negative Normal [facility] Comment on above: Performed By: #### L AC #### [place] [id number] Fentanyl (u) Negative Normal Negative [facility] Comment on above: Result Comment: Test ing has been performed FOR MEDICAL PURPOSES ONLY. Performed By: #### L AC #### [place] [id number] Methadone Ql (U) Negative Normal Negative [facility] Comment on above: Performed By: #### L AC #### [place] [address] [place] [address] Opiate (u) Negative Normal Negative [facility] Comment on above: Performed By: #### L AC #### [facility] [address] [place] [address] Oxycodone (u) Negative Normal Negative [facility] Comment on above: Result Comment: Test ing has been performed FOR MEDICAL PURPOSES ONLY. Performed By: #### L AC #### [facility] [address] [place] [address] PCP (u) Negative Normal Negative [facility] Comment on above: Performed By: #### L AC #### [facility] [address] [place] [address] Propoxyphene (u) Negative [place] Negative [facility] Comment on above: Performed By: #### L AC #### [facility] [address] [place] [address]99 Urine Drugs screened: See Below Normal [facility] Comment on above: Result Comment: This drug screen is a presumptive screening only. No confirmation will be performed unless requested. Drugs screened include: Threshold Amphetamines/Methamphetamines 1,000 ng/mL Barbiturates 200 ng/mL Benzodiazepine metabolites 200 ng/mL Cannabinoids (THC metabolites) 50 ng/mL Benzoylecognine (Cocaine metab) 300 ng/mL Opiates 300 ng/mL Phencyclidine (PCP) 25 ng/mL Methadone 300 ng/mL Propoxyphene 300 ng/mL Fentanyl 1.0 ng/mL Oxycodone 100 ng/mL Testing has been performed FOR MEDICAL PURPOSES ONLY. Performed By: #### L AC #### [facility] [address] [place] [address] ED MED ADMINISTRATION DETAIL on 06-16-2025 ED MED ADMINISTRATION DETAIL Normal [facility] ED NURSES CLINICAL NOTEon ED NURSES CLINICAL NOTE Normal [facility] ED ORDER SHEET (CPOE ONLY)on 06-16-2025 ED ORDER SHEET (CPOE ONLY) Normal [facility] ED PHYSICIAN CLINICAL REPORT on 06-16-2025 ED PHYSICIAN CLINICAL REPORT Normal [facility] ED SUPER BILLon 06-16-2025 ED SUPER BILL Normal [facility] ED VISIT SUMMARYon ED VISIT SUMMARY Normal [facility] ED VITALS FLOW SHEETon 06-16 ED VITALS FLOW SHEET Normal [facility] LABORATORYOrdered By: SYSTEM SYSTEM on 06-16-2025 Lactate [Moles/Vol] 2.0 mmol/L Normal 0.5 - 2. 2 mmol/L [facility] PT Coag (PPP) [Time] 14.4 s Normal 9.0 - 1 4.4 seconds [facility] SS Comment on above: Interpretive Data: E ffective 05/06/08, Protime results may be affected by some antibiotics (i.e. Ciprofloxacin, Azithromycin, Bactrim) which may potentiate the action of oral anticoagulants, with further increases in Protime/INR. PT International Ratio 1.2 ratio Invalid Interpretation Code [facility] SS Comment on above: Interpretive Data: [place] [employer] (CHEST, 1992, 102:312S-25S) recommended therapeutic range for oral anticoagulant therapy is: LOW RISK: Prophylaxis of venous thrombosis INR: 2.0-3.0 Treatment of pulmonary embolism 2.0-3.0 Prevention of systemic embolism 2.0-3.0 HIGH RISK: Mechanical prosthetic valves 2.5-3.5 Lactate [Moles/Vol] 2.1 mmol/L Normal 0.5 - 2. 2 mmol/L [facility] Troponin I.cardiac DL <= 0.01 ng/mL [Mass/Vol] 1085 ng/L High 0 - 34 ng/L ADM Comment on above: Interpretive Data: High Sensitive Troponin I Reference Ranges: Female: 0-34 ng/L Male: 0-54 ng/L Testing performed on [employer] IM analyzer using direct chemiluminescent technology. Lactate [Moles/Vol] 1.5 mmol/L Normal 0.5 - 2. 2 mmol/L ADM SS Troponin I.cardiac DL <= 0.01 ng/mL [Mass/Vol] 951 ng/L High 0 - 34 ng/L ADM Comment on above: Interpretive Data: High Sensitive Troponin I Reference Ranges: Female: 0-34 ng/L Male: 0-54 ng/L Testing performed on [employer] IM analyzer using direct chemiluminescent technology. Phosphate [Mass/Vol] 4.2 mg/dL Normal 2.4 - 5 .1 mg/dL ADM SS LABORATORYOrdered By: Thompson Garcia on 06-16-2025 Acetaminophen [Mass/Vol] mcg/mL Low 10.0 - 20.0 mcg/mL AH ADM SS Ethanol [Mass/Vol] mg/dL Invalid Interpretation Code AH ADM SS Salicylates [Mass/Vol] mg/dL Low 10.0 - 25.0 mg/dL AH ADM SS Serum Drugs screened: See Below 18 (06/16/25 12:34 PM) Normal Chemistry S Comment on above: Interpretive Data: T his drug screen is a presumptive screening only. No confirmation will be performed unless requested. Drugs included in the serum drug screen are: Threshold Ethanol 10.0 mg/dL Salicylate 2.0 mg/dl Acetaminophen 2.0 mcg/mL Testing has been performed FOR MEDICAL PURPOSES ONLY. Amphetamines Screen Ql (U) Negative *NA* (06/16/25 11:09 AM) Invalid Interpretation Code Negative AH ADM SS Barbiturates Screen Ql (U) Negative *NA* (06/16/25 11:09 AM) Invalid Interpretation Code Negative AH ADM SS Benzodiazepines Ql (U) Positive *ABN* (06/16/25 11:09 AM) Invalid Interpretation Code Negative AH ADM SS Benzoylecgonine Screen Ql (U) Negative *NA* (06/16/25 11:09 AM) Invalid Interpretation Code Negative AH ADM SS Cannabinoids Screen Ql (U) Positive *ABN* (06/16/25 11:09 AM) Invalid Interpretation Code Negative AH ADM SS fentaNYL Screen Ql (U) Negative 1 *NA* (06/16/25 11:09 AM) Invalid Interpretation Code Negative AH ADM SS Comment on above: Interpretive Data: T esting has been performed FOR MEDICAL PURPOSES ONLY. Methadone Screen Ql (U) Negative *NA* (06/16/25 11:09 AM) Invalid Interpretation Code Negative AH ADM SS Opiates Screen Ql (U) Negative *NA* (06/16/25 11:09 AM) Invalid Interpretation Code Negative AH ADM SS oxyCODONE Ql (U) Negative 2 *NA* (06/16/25 11:09 AM) Invalid Interpretation Code Negative AH ADM SS Comment on above: Interpretive Data: T esting has been performed FOR MEDICAL PURPOSES ONLY. pH (U) 6.0 [pH] Normal 5.0 - 8.0 Chemistry S Phencyclidine Ql (U) Negative *NA* (06/16/25 11:09 AM) Invalid Interpretation Code Negative AH ADM SS Propoxyphene Screen Ql (U) Negative *NA* (06/16/25 11:09 AM) Invalid Interpretation Code Negative AH ADM SS Urine Drugs screened: See Below 19 (06/16/25 11:09 AM) Normal AH Chemistry S Comment on above: Interpretive Data: T his drug screen is a presumptive screening only. No confirmation will be performed unless requested. Drugs screened include: Threshold Amphetamines/Methamphetamines 1,000 ng/mL Barbiturates 200 ng/mL Benzodiazepine metabolites 200 ng/mL Cannabinoids (THC metabolites) 50 ng/mL Benzoylecognine (Cocaine metab) 300 ng/mL Opiates 300 ng/mL Phencyclidine (PCP) 25 ng/mL Methadone 300 ng/mL Propoxyphene 300 ng/mL Fentanyl 1.0 ng/mL Oxycodone 100 ng/mL Testing has been performed FOR MEDICAL PURPOSES ONLY. CO2 [Moles/Vol] 25.6 mmol/L Normal 22.0 - 30.0 mmol/L AH Main Rapid [facility] SS HCO3 (Bld) [Moles/Vol] 24.3 mmol/L Normal 21.0 - 29.0 mmol/L [facility] SS Oxygen (Bld) [Partial pressure] 97.9 mm[Hg] Normal 74.0 - 108.0 mm Hg AH Main [facility] SS pCO2 43.4 mm[Hg] Normal 32.0 - 46.0 mm Hg AH Main Rapid [facility] SS pH (Bld) 7.366 [pH] Low 7.380 - 7.460 [facility] Main [facility] SS Sodium [Moles/Vol] -1.1000 mmol/L Invalid Interpretation Code AH Main Rapid Comm SS LABORATORYOrdered By: Nathan Hebert on 06-16-2025 FLUAV RNA ALEJANDRO+probe Ql (Resp) Negative 25 (06/16/25 11:16 AM) Normal Negative AH Auto [facility] SS Comment on above: Result Comment: Note s 1990 FLUBV RNA ALEJANDRO+probe Ql (Resp) Negative 26 (06/16/25 11:16 AM) Normal Negative AH [facility] SS Comment on above: Result Comment: Note s 1990 RSV PCR Negative 27 (06/16/25 11:16 AM) Normal Negative AH [facility] SS Comment on above: Result Comment: Note s 1990 SARS-CoV-2 (COVID-19) RNA ALEJANDRO+probe Ql (Resp) Negative 23, 24 (06/16/25 11:16 AM) Normal Negative AH Auto [facility]Sero SS Comment on above: Result Comment: Note s 1990 Interpretive Data: R esults from the Xpert Xpress SARS-CoV-2/Flu/RSV or Xpert Xpress SARS-CoV-2 only test should be correlated with the clinical history, epidemiological data, and other data available to the clinician evaluating the patient. Performance of the Xpert Xpress SARS-CoV-2/Flu/RSV or Xpert Xpress SARS-CoV-2 only test has only been established in nasopharyngeal swab specimens. Erroneous test results might occur from improper specimen collection; failure to follow the recommended sample collection, handling, and storage procedures; technical error; or sample mix-up.False negative results may occur if virus is present at levels below the analytical limit of detection. Viral nucleic acid may persist in vivo, independent of virus viability. Detection of analyte target(s) does not imply that the corresponding virus(es) are infectious or are the causative agents for clinical symptoms.Recent patient exposure to FluMist or other live attenuated influenza vaccines may cause inaccurate positive results. FDA Approved. LABORATORYOrdered By: Venkatesh Santillan on 06-16-2025 M. pneumoniae IgG IA Ql (S) Negative Invalid Interpretation Code AH [facility] SS Comment on above: Interpretive Data: I NTERPRETATION OF MYCOPLASMA IgG BY EIA: Negative: No detectable M. pneumoniae IgG antibody. Positive: Mycoplasma pneumoniae IgG antibody Detected. Equivocal: Equivocal for IgG antibodies to Mycoplasma pneumoniae. Suggest repeat testing in 10-14 days. M. pneumoniae IgM IA Ql (S) Negative 28 (06/16/25 10:25 AM) Normal AH Man [facility] SS Comment on above: Interpretive Data: I NTERPRETATION OF MYCOPLASMA IgM: Negative: IgM to M. pneumoniae Absent, or at levels below the assay limit of detection. Positive: IgM to M. pneumoniae Present. Invalid: Test results are invalid due to invalid internal control. Assay was performed in duplicate. Repeat testing is suggested if clinically indicated. LACon 06-16-2025 Lactic Acid Lvl 2.0 mmol/L Normal 0.5-2.2 [facility] Comment on above: Order Comment: Order ed secondary to Lactic Acid result greater than or equal to 2.0 Performed By: #### L AC #### [place] [address] Lactic Acid Lvl 2.1 mmol/L Normal 0.5-2.2 [facility] Comment on above: Performed By: #### C BC, ADIFF, ANEU, APTT, CMP, HFP, GFR #### [place] [address] Lactic Acid Lvl 1.5 mmol/L Normal 0.5-2.2 [facility] Comment on above: Performed By: #### L AC #### [place] [address] Lactic Acid Lvl 1.7 mmol/L Normal 0.5-2.2 [facility] Comment on above: Performed By: #### L AC #### [place] [address] LACTATEon 06-16-2025 Lactate [Moles/Vol] 3.9 mmol/L High 0.4 - 2.[address] [facility] Comment on above: Result Comment: LACT ATE 3 HR NOTIFIED TO: _DANIELITO_RN 06/16/25.0422.ALA. . . LACTATE 3 HR NOTIFIED BY: _AA 06/16/25.0422.ALA. . . Performed By: #### 2 [id number] ####[facility],[address] [place] [address] MGon 06-16-2025 Magnesium [Mass/Vol] 2.0 mg/dL Normal 1.6-2.4 [facility] Comment on above: Performed By: #### L AC #### [place] [address] MYCOon 06-16-2025 Mycoplasma IgG Negative Normal [facility] Comment on above: Result Comment: INTE RPRETATION OF MYCOPLASMA IgG BY EIA: Negative: No detectable M. pneumoniae IgG antibody. Positive: Mycoplasma pneumoniae IgG antibody Detected. Equivocal: Equivocal for IgG antibodies to Mycoplasma pneumoniae. Suggest repeat testing in 10-14 days. Performed By: #### L AC #### [address] [address] Mycoplasma IgM Negative Normal [facility] Comment on above: Result Comment: INTE RPRETATION OF MYCOPLASMA IgM: Negative: IgM to M. pneumoniae Absent, or at levels below the assay limit of detection. Positive: IgM to M. pneumoniae Present. Invalid: Test results are invalid due to invalid internal control. Assay was performed in duplicate. Repeat testing is suggested if clinically indicated. Performed By: #### L AC #### [address] [address] NT-proBNPon 06-16-2025 Natriuretic peptide B (Bld) [Mass/Vol] 4094 pg/mL High 0 - [address] [facility] Comment on above: Performed By: #### 2 [id number] ####[facility],[address] [place] [address] No Panel InformationOrdered By: Keith Chang on 06-16-2025 Culture Respiratory with Gram Stain Normal respiratory renu present at 48 hours Sensitivity testing not indicated [facility] Comment on above: Requests for Mycopla sma, Legionella, Fungi, Mycobacteria, Chlamydia, and Viruses require ordering of those individual tests. GS Rare Gram Positive Cocci [facility] Comment on above: Requests for Mycopla sma, Legionella, Fungi, Mycobacteria, Chlamydia, and Viruses require ordering of those individual tests. No Panel Informationon 06-16 Legionella Urine Ag Presumptive negative for L. pneumophila serogroup 1 antigen in urine, suggesting no recent or current infection. Legionnaire's disease cannot be ruled out since other serogroups and species may also cause disease. [facility] Streptococcus Pneumoniae Urine Antig Presumptive negative for pneumococcal pneumonia, suggesting no current or recent pneumococcal infection. Infection due to Strep pneumoniae cannot be ruled out since the antigen present in the sample may be below the detection limit of the test. [facility] Comment on above: This test has not be en evaluated on patients taking antibiotics for greater than 24 hours or on patients who have recently completed an antibiotic regimen. The accuracy of this test has not been proven in young children. Microscopic examination of blood, culture Blood Culture: No Growth at 5 days. [facility] PHOSon 06-16-2025 Phosphate [Mass/Vol] 4.2 mg/dL Normal 2.4-5.1 [facility] Comment on above: Performed By: #### L AC #### [facility] [address] [place] [address] PROon 06-16-2025 INR Coag (PPP) [Relative time] 1.2 {INR} Normal [facility] Comment on above: Result Comment: [employer] (CHEST, 1992, 102:312S-25S) recommended therapeutic range for oral anticoagulant therapy is: LOW RISK: Prophylaxis of venous thrombosis INR: 2.0-3.0 Treatment of pulmonary embolism 2.0-3.0 Prevention of systemic embolism 2.0-3.0 HIGH RISK: Mechanical prosthetic valves 2.5-3.5 Performed By: #### C BC, ADIFF, ANEU, APTT, CMP, HFP, GFR #### [facility] [address] [place] [address] PT Coag (PPP) [Time] 14.4 s Normal 9.0-14.4 [facility] Comment on above: Result Comment: Effe ctive 05/06/08, Protime results may be affected by some antibiotics (i.e. Ciprofloxacin, Azithromycin, Bactrim) which may potentiate the action of oral anticoagulants, with further increases in Protime/INR. Performed By: #### C BC, ADIFF, ANEU, APTT, CMP, HFP, GFR #### [facility] [address] [place] [address] PROTHROMBIN TIME AND INRon 0 06-16-2025 INR Coag (PPP) [Relative time] 1.1 {INR} Normal 0.8 - 1.[address] [facility] Comment on above: Result Comment: T HE HEMOSIL THROMBOPLASTIN REAGENT USED IN THE PROTHROMBIN TIMETEST INTERACTS WITH THE DRUG CUBICIN (DAPTOMYCIN) AND WILL RESULTIN FALSELY ELEVATED PT / INR RESULTS INR INTERPRETATION INR INDICATION PREVENTION AND TREATMENT OF THROMBOEMBOLISM ASSOCIATED WITH: 2.0 - 3.0 ATRIAL FIBRILLATION, BIOPROSTHETIC HEART VALVES, PULMONARY EMBOLISM, VENOUS THROMBOSIS, SYSTEMIC EMBOLISM POST MYOCARDIAL INFARCTION 2.5 - 3.5 MECHANICAL HEART VALVES Performed By: #### 2 [id number] ####[facility],[address] [place], [place] [id number] PROTHROMBIN TIME AND INR Normal [facility] Comment on above: Result Comment: PROT HROMBIN TIME AND INR Performed By: #### 2 [id number] ####[facility],[address] [place], [place] [id number] PT-COUMADIN 11.8 sec Normal 9.3 - 14.[address] [facility] Comment on above: Performed By: #### 2 07010 ####[facility],[address] [place], [place] [id number] TROPHSon 06-16-2025 High Sensitivity Troponin I 1085 ng/L High [address] [place] [address] MAIN Comment on above: Result Comment: High Sensitive Troponin I Reference Ranges: Female: 0-34 ng/L Male: 0-54 ng/L Testing performed on [employer] IM analyzer using direct chemiluminescent technology. Performed By: #### L AC #### [place] [address] High Sensitivity Troponin I 951 ng/L [address] MAIN Comment on above: Result Comment: High Sensitive Troponin I Reference Ranges: Female: 0-34 ng/L Male: 0-54 ng/L Testing performed on [employer] IM analyzer using direct chemiluminescent technology. Performed By: #### C BC, ADIFF, ANEU, APTT, CMP, HFP, GFR #### [place] [id number] TROPONINon 06-16-2025 HS TROPONIN 282.4 pg/mL Critically high 0.0 - 51.4 [facility] Comment on above: Result Comment: { CA LLED TO DANIELITO CARRILLO BY AA [id number]{ READ BACK BY DANIELITO CARRILLO RA [id number] Performed By: #### 2 [id number] ####[facility],[address] [place] [address] HS TROPONIN 217.4 pg/mL Critically high 0.0 - 51.4 [facility] Comment on above: Result Comment: { CA LLED TO DANIELITO CARRILLO BY AA [id number]{ READ BACK BY DANIELITO CARRILLO RA [id number] Performed By: #### 2 75937 ####[facility],[address] [place], [place] [id number] URINALYSISon 06-16-2025 Amorphous NONE Normal [facility] Comment on above: Performed By: #### 2 18850 ####[facility],[address] [place] [address] 71045 Bacteria NONE Normal [facility] Comment on above: Performed By: #### 2 05575 ####[facility],[address] [place], [place] [phone] Bilirubin Ql (U) Negative Normal NORMAL: NEGATIVE [facility] Comment on above: Performed By: #### 2 16466 ####[facility],[address] [place], [place] [phone] Casts NONE Normal [facility] Comment on above: Performed By: #### 2 98687 ####[facility],[address] [place] [address] Clarity (U) clear Normal NORMAL: CLEAR [facility] Comment on above: Performed By: #### 2 00052 ####[facility],[address] [place] [address] 36689 Color (U) ariane Normal NORMAL: YELLOW [facility] Comment on above: Performed By: #### 2 32063 ####[facility],[address] [place] [address] 04097 Crystals LM Nom (Urine sed) NONE Normal [facility] Comment on above: Performed By: #### 2 82674 ####[facility],[address] [place] [address] 36792 Epi Cells NONE Normal [facility] Comment on above: Performed By: #### 2 82730 ####[facility],[address] [place] [address] 05585 Glucose Ql (U) 50 Abnormal NORMAL: NORMAL [facility] Comment on above: Performed By: #### 2 30167 ####[facility],[address] [place] [address]347 Hemoglobin Ql (U) 150 Abnormal NORMAL: NEGATIVE [facility] Comment on above: Performed By: #### 2 19162 ####[facility],[address] [place] [address] 276[address] Ketone Negative Normal NORMAL: NEGATIVE [facility] Comment on above: Performed By: #### 2 47895 ####[facility],[address] [place] [address] 21238 Leukocytes Negative Normal NORMAL: NEGATIVE [facility] Comment on above: Performed By: #### 2 96845 ####[facility],[address] [place] [address] Mucous NONE Normal [facility] Comment on above: Performed By: #### 2 31317 ####[facility],[address] [place] [address] Nitrite Ql (U) Negative Normal NORMAL: NEGATIVE [facility] Comment on above: Performed By: #### 2 82898 ####[facility],[address] [place] [address]897 pH (U) 6 [pH] Normal NORMAL: 5.0-8.[address] [facility] Comment on above: Performed By: #### 2 12571 ####[facility],[address] [place] [address] 33235 Protein Ql (U) 500 Abnormal NORMAL: NEGATIVE [facility] Comment on above: Performed By: #### 2 27939 ####[facility],[address] [place] [address] 96163 Rbc 0-5 Normal 0-3/hpf [facility] Comment on above: Performed By: #### 2 58823 ####[facility],[address] [place] [address] 71630 Sp [place] 1.025 Normal NORMAL: 1.010-1.[address] [facility] Comment on above: Performed By: #### 2 98281 ####[facility],[address] [place] [address] Specimen Type R Normal [facility] Comment on above: Performed By: #### 2 47092 ####[facility],[address] [place] [address] Urinalysis dipstick W Reflex Microscopic panel (U) SEE BELOW Normal [facility] Comment on above: Result Comment: MICR OSCOPIC Performed By: #### 2 16753 ####[facility],[address] [place] [address] Urobilinog 1 Abnormal NORMAL: NORMAL [facility] Comment on above: Performed By: #### 2 89580 ####[facility],[address] [place], [place] [phone] Wbc NONE Normal 0-5/hpf [facility] Comment on above: Performed By: #### 2 42964 ####[facility],[address] [place], [place] [phone] Yeast NONE Normal [facility] Comment on above: Performed By: #### 2 48770 ####[facility],[address] [place] [address] VBGon 06-16-2025 vBE -3 mmol/L Low -2 - [address] [facility] Comment on above: Performed By: #### 2 88105 ####[facility],[address] [place] [address] vHCO3 28 mmol/L Normal 23 - [address] [facility] Comment on above: Performed By: #### 2 78433 ####[facility],[address] [place], [place] [phone] vpCO2 109 mmHg High 41 - [address] [facility] Comment on above: Performed By: #### 2 06391 ####[facility],[address] [place] [address],[place] [address] vpH 7.02 Low 7.31 - 7.[address] [facility] Comment on above: Performed By: #### 2 20195 ####[facility],[address] [place] [address],[place] [address] vpO2 42 mmHg Normal [facility] Comment on above: Performed By: #### 2 31037 ####[facility],[address] [place] [address],[place] [address] vsO2 51 % Normal [facility] Comment on above: Performed By: #### 2 83529 ####[facility],[address] [place] [address],[facility] [address] vBE 1 mmol/L Normal -2 - [address] [facility] Comment on above: Performed By: #### 2 61049 ####[facility],[address] [place] [address],[place] [address] vHCO3 31 mmol/L High 23 - [address] [facility] Comment on above: Performed By: #### 2 22123 ####[facility],[address] [place] [address],[place] [address] vpCO2 101 mmHg High 41 - [address] [facility] Comment on above: Performed By: #### 2 39864 ####[facility],[address] [place] [address],[place] [address] vpH 7.08 Low 7.31 - 7.[address] [facility] Comment on above: Performed By: #### 2 53210 ####[facility],[address] [place] [address],[place] [address] vpO2 33 mmHg Normal [facility] Comment on above: Performed By: #### 2 64851 ####[facility],[address] [place] [address],[place] [address] vsO2 39 % Normal [facility] Comment on above: Performed By: #### 2 76611 ####[facility],[address] [place] [address] XR CHEST 1 VIEWon 06-16-2025 XR CHEST 1 VIEW ORIGINAL EXAMINATION: ONE XRAY VIEW OF THE CHEST 06/16/2025 10:37 am COMPARISON: Same day HISTORY: ORDERING SYSTEM PROVIDED HISTORY: Reason for Exam: Endotracheal tube placement/og placement FINDINGS: For evaluation of the lung zones please refer to same day dedicated chest radiograph. Endotracheal tube is visualized approximately 2.6 cm from the level of the steve. A nasogastric tube is seen coursing past the level the diaphragm with side hole at the level of the gastroesophageal junction and tip within the proximal gastric fundus, further advancement is necessary. No pneumothorax. IMPRESSION: 1. Endotracheal tube is visualized approximately 2.6 cm from the level of the steve. 2. Nasogastric tube is seen coursing past the level the diaphragm with side hole at the level of the gastroesophageal junction and tip within the proximal gastric fundus, further advancement is necessary. Interpreted by: Aranza Reddy Preliminary Report By: Aranza Reddy Electronically signed By Aranza Reddy Dictated Date: 06/16/2025 10:43:41 AM Prelim Date: 06/16/2025 10:44:49 AM Sign Date: 06/16/2025 10:44:49 AM Ordering Provider: VANDANA DOS SANTOS [facility] BMP with eGFRon 03-07-2025 AGE 70 years Normal [facility] Comment on above: Performed By: #### 2 [id number] ####[facility],[address] [place] [address] Anion gap [Moles/Vol] 9 mmol/L Low 10 - 20 [facility] Comment on above: Performed By: #### 2 15610 ####[facility],[address] [place] [address] 60894 BMP with eGFR Normal [facility] Comment on above: Result Comment: BASI C METABOLIC PANEL Performed By: #### 2 29558 ####[facility],[address] [place], [place] [id number] Calcium [Mass/Vol] 8.7 mg/dL Normal 8.5 - 10.1 [facility] Comment on above: Performed By: #### 2 42836 ####[facility],[address] [place] [address] Chloride [Moles/Vol] 103 mmol/L Normal 98 - [address] [facility] Comment on above: Performed By: #### 2 84512 ####[facility],[address] [place] [address] CO2 [Moles/Vol] 31.6 mmol/L Normal 21.0 - 32.0 [facility] Comment on above: Performed By: #### 2 96172 ####[facility],[address] [place] [address] Creatinine [Mass/Vol] 1.16 mg/dL High 0.55 - 1.02 [facility] Comment on above: Performed By: #### 2 20293 ####[facility],[address] [place] [address] eGFR 46 ML/MINUTE Low 60 - 999 [facility] Comment on above: Performed By: #### 2 54395 ####[facility],[address] [place] [address] eGFR(AA) 56 ML/MINUTE Low 60 - 999 [facility] Comment on above: Result Comment: ACCO RDING TO THE NATIONAL KIDNEY DISEASE EDUCATION PROGRAM(NKDE), A NORMAL eGFRIS A VALUE GREATER THAN OR EQUAL TO 60 ML/MIN/1.73 SQ METERS.CHRONIC KIDNEY DISEASE: <60mL/MIN/1.73 SQ METERSKIDNEY FAILURE: <15mL/MIN/1.73 SQ METERSTHIS TEST SHOULD ONLY BE USED FOR PATIENTS 18 YEARS OF AGE AND OLDER. Performed By: #### 2 96671 ####[facility],[address] [place] [address] Glucose [Mass/Vol] 96 mg/dL Normal 74 - 106 [facility] Comment on above: Performed By: #### 2 72330 ####[facility] [place] [facility] [place] [address] Potassium [Moles/Vol] 3.4 mmol/L Low 3.5 - 5.1 [facility] Comment on above: Performed By: #### 2 94261 ####[facility],[address] [place] [address] Sodium [Moles/Vol] 140 mmol/L Normal 136 - 145 [facility] Comment on above: Performed By: #### 2 06037 ####[facility],[address] [place] [address]13 Urea nitrogen [Mass/Vol] 25 mg/dL High 7 - [address] [facility] Comment on above: Performed By: #### 2 03449 ####[facility],[address] [place] [address] 17797 CMP with eGFRon 11-13-2024 AGE 69 years Normal [facility] Comment on above: Performed By: #### 2 86105 ####[facility],[address] [place] [address] Albumin [Mass/Vol] 2.4 g/dL Low 3.4 - 5.0 [facility] Comment on above: Performed By: #### 2 78624 ####[facility],[address] [place] [address]160 Albumin/Globulin [Mass ratio] 0.8 {ratio} Low 0.9 - 1.[address] [facility] Comment on above: Performed By: #### 2 72487 ####[facility],[address] [place] [address] 10361 ALK PHOS 57 U/L Normal 46 - [address] [facility] Comment on above: Performed By: #### 2 00095 ####[facility],[address] [place] [address] 21447 ALT [Catalytic activity/Vol] 55 U/L Normal 16 - [address] [facility] Comment on above: Performed By: #### 2 03955 ####[facility],[address] [place] [address]67 Anion gap [Moles/Vol] 9 mmol/L Low 10 - 20 [facility] Comment on above: Performed By: #### 2 96061 ####[facility],[address] [place] [address] 52446 AST [Catalytic activity/Vol] 37 U/L Normal 13 - [address] [facility] Comment on above: Performed By: #### 2 74627 ####[facility],[address] [place] [address]2482 B/C RATIO 12 ratio Normal 0 - [address] [facility] Comment on above: Performed By: #### 2 99478 ####[facility],[address] [place] [address] 41691 Bilirubin [Mass/Vol] 0.3 mg/dL Normal 0.2 - 1.[address] [facility] Comment on above: Performed By: #### 2 35062 ####[facility],[address] [place] [address]402 Calcium [Mass/Vol] 7.9 mg/dL Low 8.5 - 10.1 [facility] Comment on above: Performed By: #### 2 19596 ####[facility],[address] [place] [address] 61592 Chloride [Moles/Vol] 106 mmol/L Normal 98 - [address] [facility] Comment on above: Performed By: #### 2 30713 ####[facility],[address] [place] [address]32[address] CMP with eGFR Normal [facility] Comment on above: Result Comment: COMP REHENSIVE METABOLIC PANEL Performed By: #### 2 39343 ####[facility],[address] [place] [address]3984 CO2 [Moles/Vol] 28.2 mmol/L Normal 21.0 - 32.0 [facility] Comment on above: Performed By: #### 2 48740 ####[facility],[address] [place] [address]27 Creatinine [Mass/Vol] 0.91 mg/dL Normal 0.55 - 1.02 [facility] Comment on above: Performed By: #### 2 17764 ####[facility],[address] [place] [address]57 GFR/1.73 sq M.predicted among non-blacks MDRD (S/P/Bld) [Vol rate/Area] mL/min/{1.73_m2} Normal 60 - [address] [facility] Comment on above: Performed By: #### 2 24629 ####[facility],[address] [place] [address]11 Result Comment: ACCO RDING TO THE NATIONAL KIDNEY DISEASE EDUCATION PROGRAM(NKDE), A NORMAL eGFRIS A VALUE GREATER THAN OR EQUAL TO 60 ML/MIN/1.73 SQ METERS.CHRONIC KIDNEY DISEASE: <60mL/MIN/1.73 SQ METERSKIDNEY FAILURE: <15mL/MIN/1.73 SQ METERSTHIS TEST SHOULD ONLY BE USED FOR PATIENTS 18 YEARS OF AGE AND OLDER. Globulin (S) [Mass/Vol] 3.1 g/dL Normal 1.5 - 3.[address] [facility] Comment on above: Performed By: #### 2 91237 ####[facility],[address] [place] [address]015 Glucose [Mass/Vol] 96 mg/dL Normal 74 - 106 [facility] Comment on above: Performed By: #### 2 50221 ####[facility],[address] [place] [address] 46577 Potassium [Moles/Vol] 3.8 mmol/L Normal 3.5 - 5.1 [facility] Comment on above: Performed By: #### 2 41124 ####[facility],[address] [place] [address] 01743 Protein [Mass/Vol] 5.5 g/dL Low 6.4 - 8.2 [facility] Comment on above: Performed By: #### 2 23699 ####[facility],[address] [place] [address]233 Sodium [Moles/Vol] 139 mmol/L Normal 136 - 145 [facility] Comment on above: Performed By: #### 2 98849 ####[facility],[address] [place] [address] 09325 Urea nitrogen [Mass/Vol] 11 mg/dL Normal 7 - [address] [facility] Comment on above: Performed By: #### 2 35398 ####[facility],[address] [place] [address] 04906 LIPID PROFILEon 11-13-2024 Cholesterol [Mass/Vol] 131 mg/dL Normal 0 - [address] [facility] Comment on above: Performed By: #### 2 91860 ####[facility],[address] [place] [address] 68305 Cholesterol in HDL [Mass/Vol] 50 mg/dL Normal 40 - [address] [facility] Comment on above: Performed By: #### 2 79768 ####[facility],[address] [place] [address] 30324 Cholesterol in LDL [Mass/Vol] 61 mg/dL Normal 0 - [address] [facility] Comment on above: Performed By: #### 2 14523 ####[facility],[address] [place] [address] 18594 Cholesterol.total/Cho lesterol in HDL [Mass ratio] 2.6 {ratio} Normal 0.0 - 5.[address] [facility] Comment on above: Performed By: #### 2 75882 ####[facility],[address] [place] [address] 63883 Lipid 1996 panel Normal [facility] Comment on above: Result Comment: LIPI D PROFILE Performed By: #### 2 45261 ####[facility],[address] [place] [address] 16189 Triglyceride [Mass/Vol] 98 mg/dL Normal 0 - [address] [facility] Comment on above: Performed By: #### 2 51655 ####[facility],[address] [place] [address] 43276 .Auto Diffon 11-09-2024 Basophil, Absolute 0.1 10 3/mcL Normal 0.0-0.3 [facility] Comment on above: Performed By: #### L AC #### [address] [address] Basophils/100 WBC (Bld) 1.2 % Normal 0.0-2.5 [facility] Comment on above: Performed By: #### L AC #### [address] [address] Eosinophil, Absolute 0.2 10 3/mcL Normal 0.0-0.7 [facility] Comment on above: Performed By: #### L AC #### [address] [address] Eosinophils/100 WBC (Bld) 2.0 % Normal 0.0-6.0 [facility] Comment on above: Performed By: #### L AC #### [address] [address] Lymphocyte, Absolute 2.3 10 3/mcL Normal 0.9-4.3 [facility] Comment on above: Performed By: #### L AC #### [address] [address] Lymphocytes/100 WBC (Bld) 27.4 % Normal 20.0-40.0 [facility] Comment on above: Performed By: #### L AC #### [address] [address] Monocyte, Absolute 1.1 10 3/mcL Normal 0.1-1.4 [facility] Comment on above: Performed By: #### L AC #### [address] [address] Monocytes/100 WBC (Bld) 12.9 % Normal 2.0-13.0 [facility] Comment on above: Performed By: #### L AC #### [address] [address] Neutrophils/100 WBC (Bld) 56.5 % Normal 50.0-75.0 [facility] Comment on above: Performed By: #### L AC #### [address] [address] .GFRon 11-09-2024 GFR >60 Normal [facility] Comment on above: Result Comment: GFR Population mean for , Non- Americans Ages 20-29 = 116 mL/min/1.73 sq.m. Ages 30-39 = 107 mL/min/1.73 sq.m. Ages 40-49 = 99 mL/min/1.73 sq.m. Ages 50-59 = 93 mL/min/1.73 sq.m. Ages 60-69 = 85 mL/min/1.73 sq.m. Ages 70+ = 75 mL/min/1.73 sq.m. Chronic Kidney Disease: Less than 60 mL/min/1.73 square meters End Stage Renal Disease: Less than 15 mL/min/1.73 square meters Performed By: #### L AC #### [address] [address] GFR Non- >60 Normal [facility] Comment on above: Result Comment: GFR Population mean for , Non- Americans Ages 20-29 = 116 mL/min/1.73 sq.m. Ages 30-39 = 107 mL/min/1.73 sq.m. Ages 40-49 = 99 mL/min/1.73 sq.m. Ages 50-59 = 93 mL/min/1.73 sq.m. Ages 60-69 = 85 mL/min/1.73 sq.m. Ages 70+ = 75 mL/min/1.73 sq.m. Chronic Kidney Disease: Less than 60 mL/min/1.73 square meters End Stage Renal Disease: Less than 15 mL/min/1.73 square meters Performed By: #### L AC #### [address] [address] .NEUABSon 11-09-2024 Neutrophil, Absolute 4.7 10 3/mcL Normal 2.3-8.1 [facility] Comment on above: Performed By: #### L AC #### [address] [address] BMPon 11-09-2024 BUN/Creatinine Ratio 29.6 ratio High 10.0-22.0 [facility] Comment on above: Performed By: #### L AC #### [address] [address] Calcium [Mass/Vol] 8.5 mg/dL Low 8.7-10.4 [facility] Comment on above: Performed By: #### L AC #### [address] [address] Chloride [Moles/Vol] 104 mmol/L Normal 98-110 [facility] Comment on above: Performed By: #### L AC #### [address] [address] CO2 [Moles/Vol] 26 mmol/L Normal 22-32 [facility] Comment on above: Performed By: #### L AC #### [address] [address] Creatinine [Mass/Vol] 0.81 mg/dL Normal 0.50-1.20 [facility] Comment on above: Result Comment: Test ing performed on Affashion analyzer using enzymatic creatinine methodology. Performed By: #### L AC #### [address] [address] Electrolyte Balance 7.0 mEq/L Normal 4.0-15.0 [facility] Comment on above: Performed By: #### L AC #### [address] [address] Glucose [Mass/Vol] 106 mg/dL Normal 82-115 [facility] Comment on above: Performed By: #### L AC #### [address] [address] Potassium [Moles/Vol] 3.4 mmol/L Low 3.5-5.0 [facility] Comment on above: Performed By: #### L AC #### [address] [address] Sodium [Moles/Vol] 137 mmol/L Normal 136-145 [facility] Comment on above: Performed By: #### L AC #### [place] [address] Urea nitrogen [Mass/Vol] 24.0 mg/dL High 8.0-22.0 [facility] Comment on above: Performed By: #### L AC #### [place] [id number] CBCon 11-09-2024 Erythrocyte distribution width (RBC) [Ratio] 14.5 % Normal 11.5-15.5 [facility] Comment on above: Performed By: #### L AC #### [place] [address] Hematocrit (Bld) [Volume fraction] 35.6 % Normal 34.0-46.0 [facility] Comment on above: Performed By: #### L AC #### [place] [address] Hgb 11.9 G/dL Low 12.0-16.0 [facility] Comment on above: Performed By: #### L AC #### [place] [address] MCH (RBC) [Entitic mass] 30.2 pg Normal 27.0-33.0 [facility] Comment on above: Performed By: #### L AC #### [place] [address] MCHC 33.5 G/dL Normal 32.0-36.0 [facility] Comment on above: Performed By: #### L AC #### [place] [id number] MCV (RBC) [Entitic vol] 90.2 fL Normal 80.0-99.0 [facility] Comment on above: Performed By: #### L AC #### [place] [address] Platelet 402 10 3/mcL Normal 150-450 [facility] Comment on above: Performed By: #### L AC #### [place] [address] Platelet mean volume (Bld) [Entitic vol] 7.4 fL Normal 6.6-10.5 [facility] Comment on above: Performed By: #### L AC #### [place] [address] RBC 3.95 10 6/mcL Low 4.10-5.30 [facility] Comment on above: Performed By: #### L AC #### [place] [id number] [place] [address] WBC 8.4 10 3/mcL Normal 4.5-10.8 [facility] Comment on above: Performed By: #### L AC #### [place] [address] LABORATORYOrdered By: SYSTEM SYSTEM on 11-09-2024 Basophils (Bld) [#/Vol] 0.1 103/mcL Normal 0.0 - 0.3 10^3/mcL Workflow SS Basophils/100 WBC (Bld) 1.2 % Normal 0.0 - 2.5 % Workflow SS Calcium [Mass/Vol] 8.5 mg/dL Low 8.7 - 10. 4 mg/dL ADM SS Chloride [Moles/Vol] 104 mmol/L Normal 98 - 11 0 mEq/L ADM SS CO2 [Moles/Vol] 26 mmol/L Normal 22 - 32 mEq/L ADM SS Creatinine [Mass/Vol] 0.81 mg/dL Normal 0.50 - 1.20 mg/dL ADM SS Comment on above: Interpretive Data: T esting performed on Affashion analyzer using enzymatic creatinine methodology. Electrolyte Balance 7.0 mEq/L Normal 4.0 - 15 .0 mEq/L ADM SS Eosinophils (Bld) [#/Vol] 0.2 103/mcL Normal 0.0 - 0.7 10^3/mcL Workflow SS Eosinophils/100 WBC (Bld) 2.0 % Normal 0.0 - 6.0 % Workflow SS Erythrocyte distribution width (RBC) [Ratio] 14.5 % Normal 11.5 - 15.5 % Workflow SS GFR/1.73 sq M.predicted among blacks MDRD (S/P/Bld) [Vol rate/Area] ml/min/1.73sqm Invalid Interpretation Code Chemistry S Comment on above: Interpretive Data: GFR Population mean for , Non- Americans Ages 20-29 = 116 mL/min/1.73 sq.m. Ages 30-39 = 107 mL/min/1.73 sq.m. Ages 40-49 = 99 mL/min/1.73 sq.m. Ages 50-59 = 93 mL/min/1.73 sq.m. Ages 60-69 = 85 mL/min/1.73 sq.m. Ages 70+ = 75 mL/min/1.73 sq.m. Chronic Kidney Disease: Less than 60 mL/min/1.73 square meters End Stage Renal Disease: Less than 15 mL/min/1.73 square meters GFR/1.73 sq M.predicted among non-blacks MDRD (S/P/Bld) [Vol rate/Area] ml/min/1.73sqm Invalid Interpretation Code Compass S Comment on above: Interpretive Data: GFR Population mean for , Non- Americans Ages 20-29 = 116 mL/min/1.73 sq.m. Ages 30-39 = 107 mL/min/1.73 sq.m. Ages 40-49 = 99 mL/min/1.73 sq.m. Ages 50-59 = 93 mL/min/1.73 sq.m. Ages 60-69 = 85 mL/min/1.73 sq.m. Ages 70+ = 75 mL/min/1.73 sq.m. Chronic Kidney Disease: Less than 60 mL/min/1.73 square meters End Stage Renal Disease: Less than 15 mL/min/1.73 square meters Glucose [Mass/Vol] 106 mg/dL Normal 82 - 115 mg/dL ADM SS Hematocrit (Bld) [Volume fraction] 35.6 % Normal 34.0 - 46.0 % Workflow SS Hemoglobin (Bld) [Mass/Vol] 11.9 G/dL Low 12.0 - 16.0 G/dL AH Workflow SS Lymphocytes (Bld) [#/Vol] 2.3 103/mcL Normal 0.9 - 4.3 10^3/mcL Workflow SS Lymphocytes/100 WBC (Bld) 27.4 % Normal 20.0 - 40.0 % Workflow SS Magnesium [Mass/Vol] 2.1 mg/dL Normal 1.6 - 2 .4 mg/dL AH ADM SS MCH (RBC) [Entitic mass] 30.2 pg Normal 27.0 - 33.0 pg AH Workflow SS MCHC 33.5 G/dL Normal 32.0 - 36.0 G/dL AH Workflow SS MCV (RBC) [Entitic vol] 90.2 fL Normal 80.0 - 99.0 fL AH Workflow SS Monocytes (Bld) [#/Vol] 1.1 103/mcL Normal 0.1 - 1.4 10^3/mcL AH Workflow SS Monocytes/100 WBC (Bld) 12.9 % Normal 2.0 - 13.0 % AH Workflow SS Neutrophils (Bld) [#/Vol] 4.7 103/mcL Normal 2.3 - 8.1 10^3/mcL AH Workflow SS Neutrophils/100 WBC (Bld) 56.5 % Normal 50.0 - 75.0 % AH Workflow SS Platelet mean volume (Bld) [Entitic vol] 7.4 fL Normal 6.6 - 10.5 fL AH Workflow SS Platelets (Bld) [#/Vol] 402 103/mcL Normal 150 - 450 10^3/mcL AH Workflow SS Potassium [Moles/Vol] 3.4 mmol/L Low 3.5 - 5.0 mEq/L AH ADM SS RBC (Bld) [#/Vol] 3.95 106/mcL Low 4.10 - 5.3 0 10^6/mcL AH Workflow SS Sodium [Moles/Vol] 137 mmol/L Normal 136 - 145 mEq/L ADM SS Urea nitrogen [Mass/Vol] 24.0 mg/dL High 8.0 - 22.0 mg/dL AH ADM SS Urea nitrogen/Creatinine [Mass ratio] 29.6 ratio High 10.0 - 22.0 ratio ADM SS WBC (Bld) [#/Vol] 8.4 103/mcL Normal 4.5 - 10.8 10^3/mcL Workflow SS MGon 11-09-2024 Magnesium [Mass/Vol] 2.1 mg/dL Normal 1.6-2.4 [facility] Comment on above: Performed By: #### L AC #### [place] [address] .Auto Diffon 11-08-2024 Basophil, Absolute 0.1 10 3/mcL Normal 0.0-0.3 [facility] Comment on above: Performed By: #### C BC, ADIFF, ANEU, BMP, MG, GFR ####[address] [address] Basophils/100 WBC (Bld) 1.4 % Normal 0.0-2.5 [facility] Comment on above: Performed By: #### C BC, ADIFF, ANEU, BMP, MG, GFR ####[address] [address] Eosinophil, Absolute 0.2 10 3/mcL Normal 0.0-0.7 [facility] Comment on above: Performed By: #### C BC, ADIFF, ANEU, BMP, MG, GFR ####[address] [address] Eosinophils/100 WBC (Bld) 2.7 % Normal 0.0-6.0 [facility] Comment on above: Performed By: #### C BC, ADIFF, ANEU, BMP, MG, GFR ####[address] [address] Lymphocyte, Absolute 1.9 10 3/mcL Normal 0.9-4.3 [facility] Comment on above: Performed By: #### C BC, ADIFF, ANEU, BMP, MG, GFR ####[address] [address] Lymphocytes/100 WBC (Bld) 26.7 % Normal 20.0-40.0 [facility] Comment on above: Performed By: #### C BC, ADIFF, ANEU, BMP, MG, GFR ####[address] [address] Monocyte, Absolute 0.9 10 3/mcL Normal 0.1-1.4 [facility] Comment on above: Performed By: #### C BC, ADIFF, ANEU, BMP, MG, GFR ####[address] [address] Monocytes/100 WBC (Bld) 13.0 % Normal 2.0-13.0 [facility] Comment on above: Performed By: #### C BC, ADIFF, ANEU, BMP, MG, GFR ####[address] [address] Neutrophils/100 WBC (Bld) 56.2 % Normal 50.0-75.0 [facility] Comment on above: Performed By: #### C BC, ADIFF, ANEU, BMP, MG, GFR ####[address] [address] .GFRon 11-08-2024 GFR >60 Normal [facility] Comment on above: Result Comment: GFR Population mean for , Non- Americans Ages 20-29 = 116 mL/min/1.73 sq.m. Ages 30-39 = 107 mL/min/1.73 sq.m. Ages 40-49 = 99 mL/min/1.73 sq.m. Ages 50-59 = 93 mL/min/1.73 sq.m. Ages 60-69 = 85 mL/min/1.73 sq.m. Ages 70+ = 75 mL/min/1.73 sq.m. Chronic Kidney Disease: Less than 60 mL/min/1.73 square meters End Stage Renal Disease: Less than 15 mL/min/1.73 square meters Performed By: #### C BC, ADIFF, ANEU, BMP, MG, GFR ####[place] [address] GFR Non- >60 [facility] MAIN Comment on above: Result Comment: GFR Population mean for , Non- Americans Ages 20-29 = 116 mL/min/1.73 sq.m. Ages 30-39 = 107 mL/min/1.73 sq.m. Ages 40-49 = 99 mL/min/1.73 sq.m. Ages 50-59 = 93 mL/min/1.73 sq.m. Ages 60-69 = 85 mL/min/1.73 sq.m. Ages 70+ = 75 mL/min/1.73 sq.m. Chronic Kidney Disease: Less than 60 mL/min/1.73 square meters End Stage Renal Disease: Less than 15 mL/min/1.73 square meters Performed By: #### C BC, ADIFF, ANEU, BMP, MG, GFR ####[address] [address] .NEUABSon 11-08-2024 Neutrophil, Absolute 4.1 10 3/mcL Normal 2.3-8.1 [facility] MAIN Comment on above: Performed By: #### C BC, ADIFF, ANEU, BMP, MG, GFR ####[address] [address] BMPon 11-08-2024 BUN/Creatinine Ratio 28.2 ratio High 10.0-22.0 [facility] MAIN Comment on above: Performed By: #### C BC, ADIFF, ANEU, BMP, MG, GFR ####[address] [address] Calcium [Mass/Vol] 8.8 mg/dL Normal 8.7-10.4 [facility] MAIN Comment on above: Performed By: #### C BC, ADIFF, ANEU, BMP, MG, GFR ####[place] [address] Chloride [Moles/Vol] 105 mmol/L Normal 98-110 [facility] MAIN Comment on above: Performed By: #### C BC, ADIFF, ANEU, BMP, MG, GFR ####[place] [id number] CO2 [Moles/Vol] 27 mmol/L Normal 22-32 [facility] MAIN Comment on above: Performed By: #### C BC, ADIFF, ANEU, BMP, MG, GFR ####[place] [id number] Creatinine [Mass/Vol] 0.71 mg/dL Normal 0.50-1.20 [facility] MAIN Comment on above: Result Comment: Test ing performed on Affashion analyzer using enzymatic creatinine methodology. Performed By: #### C BC, ADIFF, ANEU, BMP, MG, GFR ####[place] [address] Electrolyte Balance 7.0 mEq/L Normal 4.0-15.0 [facility] MAIN Comment on above: Performed By: #### C BC, ADIFF, ANEU, BMP, MG, GFR ####[place] [id number] Glucose [Mass/Vol] 100 mg/dL Normal 82-115 [facility] MAIN Comment on above: Performed By: #### C BC, ADIFF, ANEU, BMP, MG, GFR ####[place] [address] Potassium [Moles/Vol] 3.5 mmol/L Normal 3.5-5.0 [facility] MAIN Comment on above: Performed By: #### C BC, ADIFF, ANEU, BMP, MG, GFR ####[place] [address] Sodium [Moles/Vol] 139 mmol/L Normal 136-145 [facility] MAIN Comment on above: Performed By: #### C BC, ADIFF, ANEU, BMP, MG, GFR ####[place] [address] Urea nitrogen [Mass/Vol] 20.0 mg/dL Normal 8.0-22.0 [facility] MAIN Comment on above: Performed By: #### C BC, ADIFF, ANEU, BMP, MG, GFR ####[place] [address] CBCon 11-08-2024 Erythrocyte distribution width (RBC) [Ratio] 14.1 % Normal 11.5-15.5 [facility] MAIN Comment on above: Performed By: #### C BC, ADIFF, ANEU, BMP, MG, GFR ####[place] [address] Hematocrit (Bld) [Volume fraction] 36.1 % Normal 34.0-46.0 [facility] MAIN Comment on above: Performed By: #### C BC, ADIFF, ANEU, BMP, MG, GFR ####[place] [address] Hgb 12.1 G/dL Normal 12.0-16.0 [facility] MAIN Comment on above: Performed By: #### C BC, ADIFF, ANEU, BMP, MG, GFR ####[place] [address] MCH (RBC) [Entitic mass] 30.0 pg Normal 27.0-33.0 [facility] MAIN Comment on above: Performed By: #### C BC, ADIFF, ANEU, BMP, MG, GFR ####[place] [address] MCHC 33.5 G/dL Normal 32.0-36.0 [facility] MAIN Comment on above: Performed By: #### C BC, ADIFF, ANEU, BMP, MG, GFR ####[place] [address] MCV (RBC) [Entitic vol] 89.7 fL Normal 80.0-99.0 [facility] MAIN Comment on above: Performed By: #### C BC, ADIFF, ANEU, BMP, MG, GFR ####[place] [address] Platelet 402 10 3/mcL Normal 150-450 [facility] MAIN Comment on above: Performed By: #### C BC, ADIFF, ANEU, BMP, MG, GFR ####[place] [address] Platelet mean volume (Bld) [Entitic vol] 7.5 fL Normal 6.6-10.5 [facility] MAIN Comment on above: Performed By: #### C BC, ADIFF, ANEU, BMP, MG, GFR ####[place] [address] RBC 4.02 10 6/mcL Low 4.10-5.30 [facility] MAIN Comment on above: Performed By: #### C BC, ADIFF, ANEU, BMP, MG, GFR ####[place] [address] WBC 7.3 10 3/mcL Normal 4.5-10.8 [facility] MAIN Comment on above: Performed By: #### C BC, ADIFF, ANEU, BMP, MG, GFR ####[place] [address] LABORATORYOrdered By: Tricia Kinney on 11-08-2024 Glucose [Mass/Vol] 107 mg/dL Normal 82 - 115 mg/dL [facility] LABORATORYOrdered By: SYSTEM SYSTEM on 11-08-2024 Basophils (Bld) [#/Vol] 0.1 103/mcL Normal 0.0 - 0.3 10^3/mcL Workflow SS Basophils/100 WBC (Bld) 1.4 % Normal 0.0 - 2.5 % AH Workflow SS Calcium [Mass/Vol] 8.8 mg/dL Normal 8.7 - 10. 4 mg/dL ADM SS Chloride [Moles/Vol] 105 mmol/L Normal 98 - 11 0 mEq/L ADM SS CO2 [Moles/Vol] 27 mmol/L Normal 22 - 32 mEq/L ADM SS Creatinine [Mass/Vol] 0.71 mg/dL Normal 0.50 - 1.20 mg/dL ADM SS Comment on above: Interpretive Data: T esting performed on Affashion analyzer using enzymatic creatinine methodology. Electrolyte Balance 7.0 mEq/L Normal 4.0 - 15 .0 mEq/L ADM SS Eosinophils (Bld) [#/Vol] 0.2 103/mcL Normal 0.0 - 0.7 10^3/mcL Workflow SS Eosinophils/100 WBC (Bld) 2.7 % Normal 0.0 - 6.0 % Workflow SS Erythrocyte distribution width (RBC) [Ratio] 14.1 % Normal 11.5 - 15.5 % Workflow SS GFR/1.73 sq M.predicted among blacks MDRD (S/P/Bld) [Vol rate/Area] ml/min/1.73sqm Invalid Interpretation Code ADM SS Comment on above: Interpretive Data: GFR Population mean for , Non- Americans Ages 20-29 = 116 mL/min/1.73 sq.m. Ages 30-39 = 107 mL/min/1.73 sq.m. Ages 40-49 = 99 mL/min/1.73 sq.m. Ages 50-59 = 93 mL/min/1.73 sq.m. Ages 60-69 = 85 mL/min/1.73 sq.m. Ages 70+ = 75 mL/min/1.73 sq.m. Chronic Kidney Disease: Less than 60 mL/min/1.73 square meters End Stage Renal Disease: Less than 15 mL/min/1.73 square meters GFR/1.73 sq M.predicted among non-blacks MDRD (S/P/Bld) [Vol rate/Area] ml/min/1.73sqm Invalid Interpretation Code AH ADM SS Comment on above: Interpretive Data: GFR Population mean for , Non- Americans Ages 20-29 = 116 mL/min/1.73 sq.m. Ages 30-39 = 107 mL/min/1.73 sq.m. Ages 40-49 = 99 mL/min/1.73 sq.m. Ages 50-59 = 93 mL/min/1.73 sq.m. Ages 60-69 = 85 mL/min/1.73 sq.m. Ages 70+ = 75 mL/min/1.73 sq.m. Chronic Kidney Disease: Less than 60 mL/min/1.73 square meters End Stage Renal Disease: Less than 15 mL/min/1.73 square meters Glucose [Mass/Vol] 100 mg/dL Normal 82 - 115 mg/dL ADM SS Hematocrit (Bld) [Volume fraction] 36.1 % Normal 34.0 - 46.0 % AH Workflow SS Hemoglobin (Bld) [Mass/Vol] 12.1 G/dL Normal 12.0 - 16.0 G/dL AH Workflow SS Lymphocytes (Bld) [#/Vol] 1.9 103/mcL Normal 0.9 - 4.3 10^3/mcL AH Workflow SS Lymphocytes/100 WBC (Bld) 26.7 % Normal 20.0 - 40.0 % AH Workflow SS Magnesium [Mass/Vol] 2.0 mg/dL Normal 1.6 - 2 .4 mg/dL ADM SS MCH (RBC) [Entitic mass] 30.0 pg Normal 27.0 - 33.0 pg AH Workflow SS MCHC 33.5 G/dL Normal 32.0 - 36.0 G/dL AH Workflow SS MCV (RBC) [Entitic vol] 89.7 fL Normal 80.0 - 99.0 fL AH Workflow SS Monocytes (Bld) [#/Vol] 0.9 103/mcL Normal 0.1 - 1.4 10^3/mcL AH Workflow SS Monocytes/100 WBC (Bld) 13.0 % Normal 2.0 - 13.0 % AH Workflow SS Neutrophils (Bld) [#/Vol] 4.1 103/mcL Normal 2.3 - 8.1 10^3/mcL AH Workflow SS Neutrophils/100 WBC (Bld) 56.2 % Normal 50.0 - 75.0 % Workflow SS Platelet mean volume (Bld) [Entitic vol] 7.5 fL Normal 6.6 - 10.5 fL AH Workflow SS Platelets (Bld) [#/Vol] 402 103/mcL Normal 150 - 450 10^3/mcL AH Workflow SS Potassium [Moles/Vol] 3.5 mmol/L Normal 3.5 - 5.0 mEq/L AH ADM SS RBC (Bld) [#/Vol] 4.02 106/mcL Low 4.10 - 5.3 0 10^6/mcL AH Workflow SS Sodium [Moles/Vol] 139 mmol/L Normal 136 - 145 mEq/L ADM SS Urea nitrogen [Mass/Vol] 20.0 mg/dL Normal 8.0 - 22.0 mg/dL ADM SS Urea nitrogen/Creatinine [Mass ratio] 28.2 ratio High 10.0 - 22.0 ratio ADM SS WBC (Bld) [#/Vol] 7.3 103/mcL Normal 4.5 - 10.8 10^3/mcL Workflow SS MGon 11-08-2024 Magnesium [Mass/Vol] 2.0 mg/dL Normal 1.6-2.4 [facility] MAIN Comment on above: Performed By: #### C BC, ADIFF, ANEU, BMP, MG, GFR ####[address] [address] .Auto Diffon 11-07-2024 Basophil, Absolute 0.1 10 3/mcL Normal 0.0-0.3 [facility] MAIN Comment on above: Performed By: #### L AC #### [address] [address] Basophils/100 WBC (Bld) 1.0 % Normal 0.0-2.5 [facility] MAIN Comment on above: Performed By: #### L AC #### [facility] [address] [place] [address] Eosinophil, Absolute 0.1 10 3/mcL Normal 0.0-0.7 [facility] MAIN Comment on above: Performed By: #### L AC #### [facility] [address] [place] [address] Eosinophils/100 WBC (Bld) 0.9 % Normal 0.0-6.0 [facility] MAIN Comment on above: Performed By: #### L AC #### [facility] [address] [place] [address] Lymphocyte, Absolute 1.3 10 3/mcL Normal 0.9-4.3 [facility] MAIN Comment on above: Performed By: #### L AC #### [facility] [address] [place] [address] Lymphocytes/100 WBC (Bld) 14.5 % Low 20.0-40.0 [facility] MAIN Comment on above: Performed By: #### L AC #### [facility] [address] [place] [address] Monocyte, Absolute 1.0 10 3/mcL Normal 0.1-1.4 [facility] MAIN Comment on above: Performed By: #### L AC #### [address] [address] Monocytes/100 WBC (Bld) 10.3 % Normal 2.0-13.0 [facility] MAIN Comment on above: Performed By: #### L AC #### [address] [address] Neutrophils/100 WBC (Bld) 73.3 % Normal 50.0-75.0 [facility] MAIN Comment on above: Performed By: #### L AC #### [address] [address] .GFRon 11-07-2024 GFR Non- >60 Normal [facility] MAIN Comment on above: Result Comment: GFR Population mean for , Non- Americans Ages 20-29 = 116 mL/min/1.73 sq.m. Ages 30-39 = 107 mL/min/1.73 sq.m. Ages 40-49 = 99 mL/min/1.73 sq.m. Ages 50-59 = 93 mL/min/1.73 sq.m. Ages 60-69 = 85 mL/min/1.73 sq.m. Ages 70+ = 75 mL/min/1.73 sq.m. Chronic Kidney Disease: Less than 60 mL/min/1.73 square meters End Stage Renal Disease: Less than 15 mL/min/1.73 square meters Performed By: #### L AC #### [address] [address] GFR >60 Normal [facility] MAIN Comment on above: Result Comment: GFR Population mean for , Non- Americans Ages 20-29 = 116 mL/min/1.73 sq.m. Ages 30-39 = 107 mL/min/1.73 sq.m. Ages 40-49 = 99 mL/min/1.73 sq.m. Ages 50-59 = 93 mL/min/1.73 sq.m. Ages 60-69 = 85 mL/min/1.73 sq.m. Ages 70+ = 75 mL/min/1.73 sq.m. Chronic Kidney Disease: Less than 60 mL/min/1.73 square meters End Stage Renal Disease: Less than 15 mL/min/1.73 square meters Performed By: #### L AC #### [address] [address] .NEUABSon 11-07-2024 Neutrophil, Absolute 6.8 10 3/mcL Normal 2.3-8.1 [facility] MAIN Comment on above: Performed By: #### L AC #### [address] [address] BMPon 11-07-2024 BUN/Creatinine Ratio 38.2 ratio High 10.0-22.0 [facility] MAIN Comment on above: Performed By: #### L AC #### [address] [address] Calcium [Mass/Vol] 9.0 mg/dL Normal 8.7-10.4 [facility] MAIN Comment on above: Performed By: #### L AC #### [address] [address] Chloride [Moles/Vol] 102 mmol/L Normal 98-110 [facility] MAIN Comment on above: Performed By: #### L AC #### [address] [address] CO2 [Moles/Vol] 27 mmol/L Normal 22-32 [facility] MAIN Comment on above: Performed By: #### L AC #### [address] [address] Creatinine [Mass/Vol] 0.68 mg/dL Normal 0.50-1.20 [facility] MA[facility] Comment on above: Result Comment: Test ing performed on Affashion analyzer using enzymatic creatinine methodology. Performed By: #### L AC #### [address] [address] Electrolyte Balance 9.0 mEq/L Normal 4.0-15.0 [facility] MAIN Comment on above: Performed By: #### L AC #### [place] [id number] Glucose [Mass/Vol] 108 mg/dL Normal 82-115 [facility] MAIN Comment on above: Performed By: #### L AC #### [place] [id number] Potassium [Moles/Vol] 3.6 mmol/L Normal 3.5-5.0 [facility] MA[facility] Comment on above: Performed By: #### L AC #### [place] [id number] Sodium [Moles/Vol] 138 mmol/L Normal 136-145 [facility] MAIN Comment on above: Performed By: #### L AC #### [place] [id number] Urea nitrogen [Mass/Vol] 26.0 mg/dL High 8.0-22.0 [facility] MAIN Comment on above: Performed By: #### L AC #### [address] [address] CBCon 11-07-2024 Erythrocyte distribution width (RBC) [Ratio] 14.2 % Normal 11.5-15.5 [facility] MAIN Comment on above: Performed By: #### L AC #### [address] [address] Hematocrit (Bld) [Volume fraction] 33.8 % Low 34.0-46.0 [facility] MA[facility] Comment on above: Performed By: #### L AC #### [address] [address] Hgb 11.2 G/dL Low 12.0-16.0 [facility] MAIN Comment on above: Performed By: #### L AC #### [place] [address] MCH (RBC) [Entitic mass] 29.6 pg Normal 27.0-33.0 [facility] MAIN Comment on above: Performed By: #### L AC #### [place] [address] MCHC 33.0 G/dL Normal 32.0-36.0 [facility] Comment on above: Performed By: #### L AC #### [place] [address] MCV (RBC) [Entitic vol] 89.7 fL Normal 80.0-99.0 [facility] MA[facility] Comment on above: Performed By: #### L AC #### [place] [address] Platelet 391 10 3/mcL Normal 150-450 [facility] MA[facility] Comment on above: Performed By: #### L AC #### [place] [address] Platelet mean volume (Bld) [Entitic vol] 7.5 fL Normal 6.6-10.5 [facility] MA[facility] Comment on above: Performed By: #### L AC #### [place] [address] RBC 3.77 10 6/mcL Low 4.10-5.30 [facility] MAIN Comment on above: Performed By: #### L AC #### [place] [id number] WBC 9.3 10 3/mcL Normal 4.5-10.8 [facility] MA[facility] Comment on above: Performed By: #### L AC #### [place] [address] ED MED ADMINISTRATION DETAIL on 11-07-2024 ED MED ADMINISTRATION DETAIL Normal [facility] ED NURSES CLINICAL NOTEon ED NURSES CLINICAL NOTE Normal [facility] ED ORDER SHEET (CPOE ONLY)on 11-07-2024 ED ORDER SHEET (CPOE ONLY) Normal [facility] ED PHYSICIAN CLINICAL REPORT on 01-16-2025 ED PHYSICIAN CLINICAL REPORT Normal [facility] ED PHYSICIAN DISCHARGE REPOR Ton 11-07-2024 ED PHYSICIAN DISCHARGE REPORT Normal [facility] ED SUPER BILLon 11-07-2024 ED SUPER BILL Normal [facility] ED VISIT SUMMARYon ED VISIT SUMMARY Normal [facility] ED VITALS FLOW SHEETon 11-07 ED VITALS FLOW SHEET Normal [facility] LABORATORYOrdered By: Ariane Salmon on 11-07-2024 Blood Glucose Testing Reason Routine (11/07/24 3:30 AM) [facility] Glucose [Mass/Vol] 116 mg/dL High 82 - 115 mg/dL [facility] LABORATORYOrdered By: SYSTEM SYSTEM on 11-07-2024 Basophils (Bld) [#/Vol] 0.1 103/mcL Normal 0.0 - 0.3 10^3/mcL AH Workflow SS Basophils/100 WBC (Bld) 1.0 % Normal 0.0 - 2.5 % AH Workflow SS Calcium [Mass/Vol] 9.0 mg/dL Normal 8.7 - 10. 4 mg/dL AH ADM SS Chloride [Moles/Vol] 102 mmol/L Normal 98 - 11 0 mEq/L AH ADM SS CO2 [Moles/Vol] 27 mmol/L Normal 22 - 32 mEq/L AH ADM SS Creatinine [Mass/Vol] 0.68 mg/dL Normal 0.50 - 1.20 mg/dL AH ADM SS Comment on above: Interpretive Data: T esting performed on Affashion analyzer using enzymatic creatinine methodology. Electrolyte Balance 9.0 mEq/L Normal 4.0 - 15 .0 mEq/L AH ADM SS Eosinophils (Bld) [#/Vol] 0.1 103/mcL Normal 0.0 - 0.7 10^3/mcL AH Workflow SS Eosinophils/100 WBC (Bld) 0.9 % Normal 0.0 - 6.0 % AH Workflow SS Erythrocyte distribution width (RBC) [Ratio] 14.2 % Normal 11.5 - 15.5 % AH Workflow SS GFR/1.73 sq M.predicted among blacks MDRD (S/P/Bld) [Vol rate/Area] ml/min/1.73sqm Invalid Interpretation Code [facility] Comment on above: Interpretive Data: GFR Population mean for , Non- Americans Ages 20-29 = 116 mL/min/1.73 sq.m. Ages 30-39 = 107 mL/min/1.73 sq.m. Ages 40-49 = 99 mL/min/1.73 sq.m. Ages 50-59 = 93 mL/min/1.73 sq.m. Ages 60-69 = 85 mL/min/1.73 sq.m. Ages 70+ = 75 mL/min/1.73 sq.m. Chronic Kidney Disease: Less than 60 mL/min/1.73 square meters End Stage Renal Disease: Less than 15 mL/min/1.73 square meters GFR/1.73 sq M.predicted among non-blacks MDRD (S/P/Bld) [Vol rate/Area] ml/min/1.73sqm Invalid Interpretation Code [facility] Comment on above: Interpretive Data: GFR Population mean for , Non- Americans Ages 20-29 = 116 mL/min/1.73 sq.m. Ages 30-39 = 107 mL/min/1.73 sq.m. Ages 40-49 = 99 mL/min/1.73 sq.m. Ages 50-59 = 93 mL/min/1.73 sq.m. Ages 60-69 = 85 mL/min/1.73 sq.m. Ages 70+ = 75 mL/min/1.73 sq.m. Chronic Kidney Disease: Less than 60 mL/min/1.73 square meters End Stage Renal Disease: Less than 15 mL/min/1.73 square meters Glucose [Mass/Vol] 108 mg/dL Normal 82 - 115 mg/dL ADM SS Hematocrit (Bld) [Volume fraction] 33.8 % Low 34.0 - 46.0 % Workflow SS Hemoglobin (Bld) [Mass/Vol] 11.2 G/dL Low 12.0 - 16.0 G/dL Workflow SS Lymphocytes (Bld) [#/Vol] 1.3 103/mcL Normal 0.9 - 4.3 10^3/mcL Workflow SS Lymphocytes/100 WBC (Bld) 14.5 % Low 20.0 - 40.0 % Workflow SS Magnesium [Mass/Vol] 2.0 mg/dL Normal 1.6 - 2 .4 mg/dL AH ADM SS MCH (RBC) [Entitic mass] 29.6 pg Normal 27.0 - 33.0 pg AH Workflow SS MCHC 33.0 G/dL Normal 32.0 - 36.0 G/dL AH Workflow SS MCV (RBC) [Entitic vol] 89.7 fL Normal 80.0 - 99.0 fL AH Workflow SS Monocytes (Bld) [#/Vol] 1.0 103/mcL Normal 0.1 - 1.4 10^3/mcL AH Workflow SS Monocytes/100 WBC (Bld) 10.3 % Normal 2.0 - 13.0 % AH Workflow SS Neutrophils (Bld) [#/Vol] 6.8 103/mcL Normal 2.3 - 8.1 10^3/mcL AH Workflow SS Neutrophils/100 WBC (Bld) 73.3 % Normal 50.0 - 75.0 % AH Workflow SS Platelet mean volume (Bld) [Entitic vol] 7.5 fL Normal 6.6 - 10.5 fL AH Workflow SS Platelets (Bld) [#/Vol] 391 103/mcL Normal 150 - 450 10^3/mcL AH Workflow SS Potassium [Moles/Vol] 3.6 mmol/L Normal 3.5 - 5.0 mEq/L AH ADM SS RBC (Bld) [#/Vol] 3.77 106/mcL Low 4.10 - 5.3 0 10^6/mcL AH Workflow SS Sodium [Moles/Vol] 138 mmol/L Normal 136 - 145 mEq/L AH ADM SS Urea nitrogen [Mass/Vol] 26.0 mg/dL High 8.0 - 22.0 mg/dL AH ADM SS Urea nitrogen/Creatinine [Mass ratio] 38.2 ratio High 10.0 - 22.0 ratio AH ADM SS WBC (Bld) [#/Vol] 9.3 103/mcL Normal 4.5 - 10.8 10^3/mcL Workflow SS MGon 11-07-2024 Magnesium [Mass/Vol] 2.0 mg/dL Normal 1.6-2.4 [facility] Comment on above: Performed By: #### L #### [place] [address] XR CHEST 1 VIEWon 11-07-2024 XR CHEST 1 VIEW ORIGINAL EXAMINATION: ONE XRAY VIEW OF THE CHEST 11/07/2024 6:39 am COMPARISON: Chest x-ray on 11/06/2024 HISTORY: ORDERING SYSTEM PROVIDED HISTORY: Reason for Exam: Dyspnea FINDINGS: The heart size is stable. Diffuse bilateral lung infiltrates are predominantly interstitial and unchanged. Small bilateral pleural effusions are present with increased right pleural fluid. There is basilar consolidation associated with the pleural fluid. No pneumothorax is present. IMPRESSION: 1. Stable diffuse bilateral lung infiltrates. 2. Small bilateral pleural effusions with increased right pleural fluid. Interpreted by: Genaro No MD Preliminary Report By: Genaro No MD Electronically signed By Genaro No MD Dictated Date: 11/07/2024 6:53:02 AM Prelim Date: 11/07/2024 6:54:29 AM Sign Date: 11/07/2024 6:54:29 AM Ordering Provider: EMILIO Soto [facility] .Auto Diffon 11-06-2024 Basophil, Absolute 0.1 10 3/mcL Normal 0.0-0.3 [facility] Comment on above: Performed By: #### L AC #### [address] [address] Basophils/100 WBC (Bld) 1.0 % Normal 0.0-2.5 [facility] Comment on above: Performed By: #### L AC #### [address] [address] Eosinophil, Absolute 0.1 10 3/mcL Normal 0.0-0.7 [facility] Comment on above: Performed By: #### L AC #### [address] [address] Eosinophils/100 WBC (Bld) 0.8 % Normal 0.0-6.0 [facility] Comment on above: Performed By: #### L AC #### [address] [address] Lymphocyte, Absolute 1.9 10 3/mcL Normal 0.9-4.3 [facility] Comment on above: Performed By: #### L AC #### [address] [address] Lymphocytes/100 WBC (Bld) 20.1 % Normal 20.0-40.0 [facility] Comment on above: Performed By: #### L AC #### [facility] [address] [place] [address] Monocyte, Absolute 0.9 10 3/mcL Normal 0.1-1.4 [facility] Comment on above: Performed By: #### L AC #### [facility] [address] [place] [address] Monocytes/100 WBC (Bld) 9.5 % Normal 2.0-13.0 [facility] Comment on above: Performed By: #### L AC #### [facility] [address] [place] [address] Neutrophils/100 WBC (Bld) 68.6 % Normal 50.0-75.0 [facility] Comment on above: Performed By: #### L AC #### [address] [address] .GFRon 11-06-2024 GFR >60 Normal [facility] Comment on above: Result Comment: GFR Population mean for , Non- Americans Ages 20-29 = 116 mL/min/1.73 sq.m. Ages 30-39 = 107 mL/min/1.73 sq.m. Ages 40-49 = 99 mL/min/1.73 sq.m. Ages 50-59 = 93 mL/min/1.73 sq.m. Ages 60-69 = 85 mL/min/1.73 sq.m. Ages 70+ = 75 mL/min/1.73 sq.m. Chronic Kidney Disease: Less than 60 mL/min/1.73 square meters End Stage Renal Disease: Less than 15 mL/min/1.73 square meters Performed By: #### L AC #### [facility] [address] [place] [id number] GFR Non- 60 ml/min/1.73sqm [facility] MAIN Comment on above: Result Comment: GFR Population mean for , Non- Americans Ages 20-29 = 116 mL/min/1.73 sq.m. Ages 30-39 = 107 mL/min/1.73 sq.m. Ages 40-49 = 99 mL/min/1.73 sq.m. Ages 50-59 = 93 mL/min/1.73 sq.m. Ages 60-69 = 85 mL/min/1.73 sq.m. Ages 70+ = 75 mL/min/1.73 sq.m. Chronic Kidney Disease: Less than 60 mL/min/1.73 square meters End Stage Renal Disease: Less than 15 mL/min/1.73 square meters Performed By: #### L AC #### [place] [id number] GFR >60 [facility] MAIN Comment on above: Result Comment: GFR Population mean for , Non- Americans Ages 20-29 = 116 mL/min/1.73 sq.m. Ages 30-39 = 107 mL/min/1.73 sq.m. Ages 40-49 = 99 mL/min/1.73 sq.m. Ages 50-59 = 93 mL/min/1.73 sq.m. Ages 60-69 = 85 mL/min/1.73 sq.m. Ages 70+ = 75 mL/min/1.73 sq.m. Chronic Kidney Disease: Less than 60 mL/min/1.73 square meters End Stage Renal Disease: Less than 15 mL/min/1.73 square meters Performed By: #### L AC #### [place] [id number] GFR Non- >60 [facility] MAIN Comment on above: Result Comment: GFR Population mean for , Non- Americans Ages 20-29 = 116 mL/min/1.73 sq.m. Ages 30-39 = 107 mL/min/1.73 sq.m. Ages 40-49 = 99 mL/min/1.73 sq.m. Ages 50-59 = 93 mL/min/1.73 sq.m. Ages 60-69 = 85 mL/min/1.73 sq.m. Ages 70+ = 75 mL/min/1.73 sq.m. Chronic Kidney Disease: Less than 60 mL/min/1.73 square meters End Stage Renal Disease: Less than 15 mL/min/1.73 square meters Performed By: #### L AC #### [place] [id number] .NEUABSon 11-06-2024 Neutrophil, Absolute 6.4 10 3/mcL Normal 2.3-8.1 [facility] MAIN Comment on above: Performed By: #### L AC #### [address] [address] BGon 11-06-2024 Base excess Calc (Bld) [Moles/Vol] 3.6 mmol/L Normal [facility] Comment on above: Performed By: #### C BC, ADIFF, ANEU, APTT, CMP, HFP, GFR #### [place] [id number] CO2 [Moles/Vol] 27.9 mmol/L Normal 22.0-30.0 [facility] Comment on above: Performed By: #### C BC, ADIFF, ANEU, APTT, CMP, HFP, GFR #### [place] [id number] HCO3 (Bld) [Moles/Vol] 26.8 mmol/L Normal 21.0-29.0 [facility] Comment on above: Performed By: #### C BC, ADIFF, ANEU, APTT, CMP, HFP, GFR #### [place] [address] Oxygen (Bld) [Partial pressure] 97.0 mm[Hg] Normal 74.0-108.0 [facility] Comment on above: Performed By: #### C BC, ADIFF, ANEU, APTT, CMP, HFP, GFR #### [place] [address] Oxygen saturation in Blood 97.4 % High 92.0-96.0 [facility] Comment on above: Performed By: #### C BC, ADIFF, ANEU, APTT, CMP, HFP, GFR #### [place] [id number] pCO2 35.4 mmHg Normal 32.0-46.0 [facility] Comment on above: Performed By: #### C BC, ADIFF, ANEU, APTT, CMP, HFP, GFR #### [place] [id number] pH (Bld) 7.497 [pH] High 7.380-7.460 [facility] Comment on above: Performed By: #### C BC, ADIFF, ANEU, APTT, CMP, HFP, GFR #### [address] [address] BMPon 11-06-2024 BUN/Creatinine Ratio 31.2 ratio High 10.0-22.0 [facility] Comment on above: Performed By: #### L AC #### [address] [address] Calcium [Mass/Vol] 8.5 mg/dL Low 8.7-10.4 [facility] Comment on above: Performed By: #### L AC #### [address] [address] Chloride [Moles/Vol] 103 mmol/L Normal 98-110 [facility] Comment on above: Performed By: #### L AC #### [address] [address] CO2 [Moles/Vol] 32 mmol/L Normal 22-32 [facility] Comment on above: Performed By: #### L AC #### [address] [address] Creatinine [Mass/Vol] 0.93 mg/dL Normal 0.50-1.20 [facility] Comment on above: Result Comment: Test ing performed on Affashion analyzer using enzymatic creatinine methodology. Performed By: #### L AC #### [address] [address] Electrolyte Balance 4.0 mEq/L Normal 4.0-15.0 [facility] Comment on above: Performed By: #### L AC #### [address] [address] Glucose [Mass/Vol] 89 mg/dL Normal 82-115 [facility] Comment on above: Performed By: #### L AC #### [address] [address] Potassium [Moles/Vol] 3.0 mmol/L Low 3.5-5.0 [facility] Comment on above: Performed By: #### L AC #### [address] [address] Sodium [Moles/Vol] 139 mmol/L Normal 136-145 [facility] Comment on above: Performed By: #### L AC #### [address] [address] Urea nitrogen [Mass/Vol] 29.0 mg/dL High 8.0-22.0 [facility] Comment on above: Performed By: #### L AC #### [place] [id number] BUN/Creatinine Ratio 35.3 ratio High 10.0-22.0 [facility] Comment on above: Performed By: #### L AC #### [address] [address] Calcium [Mass/Vol] 8.5 mg/dL Low 8.7-10.4 [facility] Comment on above: Performed By: #### L AC #### [address] [address] Chloride [Moles/Vol] 101 mmol/L Normal 98-110 [facility] Comment on above: Performed By: #### L AC #### [address] [address] CO2 [Moles/Vol] 32 mmol/L Normal 22-32 [facility] Comment on above: Performed By: #### L AC #### [address] [address] Creatinine [Mass/Vol] 0.85 mg/dL Normal 0.50-1.20 [facility] Comment on above: Result Comment: Test ing performed on Affashion analyzer using enzymatic creatinine methodology. Performed By: #### L AC #### [address] [address] Electrolyte Balance 7.0 mEq/L Normal 4.0-15.0 [facility] Comment on above: Performed By: #### L AC #### [address] [address] Glucose [Mass/Vol] 88 mg/dL Normal 82-115 [facility] Comment on above: Performed By: #### L AC #### [place] [id number] Potassium [Moles/Vol] 3.0 mmol/L Low 3.5-5.0 [facility] Comment on above: Performed By: #### L AC #### [place] [id number] Sodium [Moles/Vol] 140 mmol/L Normal 136-145 [facility] Comment on above: Performed By: #### L AC #### [place] [id number] Urea nitrogen [Mass/Vol] 30.0 mg/dL High 8.0-22.0 [facility] Comment on above: Performed By: #### L AC #### [place] [id number] CBCon 11-06-2024 Erythrocyte distribution width (RBC) [Ratio] 14.6 % Normal 11.5-15.5 [facility] Comment on above: Performed By: #### L AC #### [place] [id number] Hematocrit (Bld) [Volume fraction] 30.7 % Low 34.0-46.0 [facility] Comment on above: Performed By: #### L AC #### [place] [id number] Hgb 10.6 G/dL Low 12.0-16.0 [facility] Comment on above: Performed By: #### L AC #### [place] [id number] MCH (RBC) [Entitic mass] 30.9 pg Normal 27.0-33.0 [facility] Comment on above: Performed By: #### L AC #### [place] [id number] MCHC 34.4 G/dL Normal 32.0-36.0 [facility] Comment on above: Performed By: #### L AC #### [facility] [address] [place], [place] [address] MCV (RBC) [Entitic vol] 90.0 fL Normal 80.0-99.0 [facility] Comment on above: Performed By: #### L AC #### [facility] [address] [place] [address] Platelet 360 10 3/mcL Normal 150-450 [facility] Comment on above: Performed By: #### L AC #### [facility] [address] [place] [address] Platelet mean volume (Bld) [Entitic vol] 7.4 fL Normal 6.6-10.5 [facility] Comment on above: Performed By: #### L AC #### [facility] [address] [place] [address] RBC 3.41 10 6/mcL Low 4.10-5.30 [facility] Comment on above: Performed By: #### L AC #### [place] [address] WBC 9.4 10 3/mcL Normal 4.5-10.8 [facility] Comment on above: Performed By: #### L AC #### [facility] [address] [place] [address] LABORATORYOrdered By: Pamella Tao on 11-06-2024 Blood Glucose Testing Reason Routine (11/06/24 7:36 AM) [facility] Glucose [Mass/Vol] 99 mg/dL Normal 82 - 115 mg/dL [facility] LABORATORYOrdered By: Shreya moore on 11-06-2024 Blood Glucose Testing Reason Routine (11/06/24 3:27 AM) [facility] LABORATORYOrdered By: Faina Steel on 11-06-2024 Base Excess 3.6 mmol/L Invalid Interpretation Code [facility] CO2 [Moles/Vol] 27.9 mmol/L Normal 22.0 - 30.0 mmol/L [facility] HCO3 (Bld) [Moles/Vol] 26.8 mmol/L Normal 21.0 - 29.0 mmol/L [facility] Oxygen (Bld) [Partial pressure] 97.0 mm[Hg] Normal 74.0 - 108.0 mm Hg [facility] pCO2 35.4 mm[Hg] Normal 32.0 - 46.0 mm Hg [facility] pH (Bld) 7.497 [pH] High 7.380 - 7.460 [facility] MGon 11-06-2024 Magnesium [Mass/Vol] 2.2 mg/dL Normal 1.6-2.4 [facility] Comment on above: Performed By: #### L AC #### [address] [address] Magnesium [Mass/Vol] 2.0 mg/dL Normal 1.6-2.4 [facility] Comment on above: Performed By: #### L AC #### [address] [address] XR CHEST 1 VIEWon 11-06-2024 XR CHEST 1 VIEW ORIGINAL EXAMINATION: ONE XRAY VIEW OF THE CHEST11/06/2024 6:28 am COMPARISON: Chest radiograph 07/06/2025 HISTORY: ORDERING SYSTEM PROVIDED HISTORY: Reason for Exam: CHF FINDINGS: Interval removal of enteric tube. The cardiomediastinal silhouette is stable. Similar central vascular congestion and peribronchial cuffing. Similar diffuse interstitial prominence. Similar trace bilateral pleural effusions with overlying airspace opacification. No pneumothorax. IMPRESSION: Unchanged pulmonary edema and trace bilateral pleural effusions with overlying airspace opacification. I have personally reviewed the images of this examination, and agree with the resident's findings and interpretation. Interpreted by: Genaro No MD Preliminary Report By: Rosy Aggarwal Electronically signed By Genaro No MD Dictated Date: 11/06/2024 6:32:14 AM Prelim Date: 11/06/2024 6:34:04 AM Sign Date: 11/06/2024 6:39:04 AM Ordering Provider: EMILIO REYES Normal [facility] .Auto Diffon 11-05-2024 Basophil, Absolute 0.1 10 3/mcL Normal 0.0-0.3 [facility] Comment on above: Performed By: #### D RUGS #### [address] [address] Basophils/100 WBC (Bld) 0.5 % Normal 0.0-2.5 [facility] Comment on above: Performed By: #### D RUGS #### [address] [address] Eosinophil, Absolute 0.0 10 3/mcL Normal 0.0-0.7 [facility] Comment on above: Performed By: #### D RUGS #### [address] [address] Eosinophils/100 WBC (Bld) 0.1 % Normal 0.0-6.0 [facility] Comment on above: Performed By: #### D RUGS #### [address] [address] Lymphocyte, Absolute 1.5 10 3/mcL Normal 0.9-4.3 [facility] Comment on above: Performed By: #### D RUGS #### [address] [address] Lymphocytes/100 WBC (Bld) 12.9 % Low 20.0-40.0 [facility] Comment on above: Performed By: #### D RUGS #### [address] [address] Monocyte, Absolute 1.2 10 3/mcL Normal 0.1-1.4 [facility] Comment on above: Performed By: #### D RUGS #### [address] [address] Monocytes/100 WBC (Bld) 10.6 % Normal 2.0-13.0 [facility] Comment on above: Performed By: #### D RUGS #### [address] [address] Neutrophils/100 WBC (Bld) 75.9 % High 50.0-75.0 [facility] Comment on above: Performed By: #### D RUGS #### [address] [address] .GFRon 11-05-2024 GFR >60 Normal [facility] Comment on above: Result Comment: GFR Population mean for , Non- Americans Ages 20-29 = 116 mL/min/1.73 sq.m. Ages 30-39 = 107 mL/min/1.73 sq.m. Ages 40-49 = 99 mL/min/1.73 sq.m. Ages 50-59 = 93 mL/min/1.73 sq.m. Ages 60-69 = 85 mL/min/1.73 sq.m. Ages 70+ = 75 mL/min/1.73 sq.m. Chronic Kidney Disease: Less than 60 mL/min/1.73 square meters End Stage Renal Disease: Less than 15 mL/min/1.73 square meters Performed By: #### D RUGS #### [address] [address] GFR Non- >60 Normal [facility] Comment on above: Result Comment: GFR Population mean for , Non- Americans Ages 20-29 = 116 mL/min/1.73 sq.m. Ages 30-39 = 107 mL/min/1.73 sq.m. Ages 40-49 = 99 mL/min/1.73 sq.m. Ages 50-59 = 93 mL/min/1.73 sq.m. Ages 60-69 = 85 mL/min/1.73 sq.m. Ages 70+ = 75 mL/min/1.73 sq.m. Chronic Kidney Disease: Less than 60 mL/min/1.73 square meters End Stage Renal Disease: Less than 15 mL/min/1.73 square meters Performed By: #### D RUGS #### [address] [address] .NEUABSon 11-05-2024 Neutrophil, Absolute 8.7 10 3/mcL High 2.3-8.1 [facility] Comment on above: Performed By: #### D RUGS #### [address] [address] BGon 11-05-2024 Base excess Calc (Bld) [Moles/Vol] 4.1 mmol/L Normal [facility] Comment on above: Performed By: #### B G ####[address] [address] CO2 [Moles/Vol] 30.0 mmol/L Normal 22.0-30.0 [facility] Comment on above: Performed By: #### B G ####[place] [id number] HCO3 (Bld) [Moles/Vol] 28.7 mmol/L Normal 21.0-29.0 [facility] Comment on above: Performed By: #### B G ####[place] [address] Oxygen (Bld) [Partial pressure] 73.4 mm[Hg] Low 74.0-108.0 [facility] Comment on above: Performed By: #### Sidney G ####[place] [address] Oxygen saturation in Blood 94.7 % Normal 92.0-96.0 [facility] Comment on above: Performed By: #### Sidney G ####[place] [address] pCO2 42.9 mmHg Normal 32.0-46.0 [facility] Comment on above: Performed By: #### Sidney G ####[place] [address] pH (Bld) 7.443 [pH] Normal 7.380-7.460 [facility] Comment on above: Performed By: #### Sidney G ####[place] [address] CBCon 11-05-2024 Erythrocyte distribution width (RBC) [Ratio] 14.4 % Normal 11.5-15.5 [facility] Comment on above: Performed By: #### Amina RUGS #### [place] [address] Hematocrit (Bld) [Volume fraction] 34.4 % Normal 34.0-46.0 [facility] Comment on above: Performed By: #### D RUGS #### [place] [id number] Hgb 11.5 G/dL Low 12.0-16.0 [facility] Comment on above: Performed By: #### Amian RUGS #### [facility] [address] [place], [place] [address] MCH (RBC) [Entitic mass] 30.5 pg Normal 27.0-33.0 [facility] Comment on above: Performed By: #### Amina RUGS #### [place] [address] MCHC 33.5 G/dL Normal 32.0-36.0 [facility] Comment on above: Performed By: #### Amina RUGS #### [place] [address] MCV (RBC) [Entitic vol] 91.1 fL Normal 80.0-99.0 [facility] Comment on above: Performed By: #### Amina RUGBre #### [place] [address] Platelet 423 10 3/mcL Normal 150-450 [facility] Comment on above: Performed By: #### Amina RUGS #### [place] [address] Platelet mean volume (Bld) [Entitic vol] 7.6 fL Normal 6.6-10.5 [facility] Comment on above: Performed By: #### Amina RUGBre #### [place] [address] RBC 3.78 10 6/mcL Low 4.10-5.30 [facility] Comment on above: Performed By: #### Amina RUGS #### [place] [address] WBC 11.5 10 3/mcL High 4.5-10.8 [facility] Comment on above: Performed By: #### Amina RUGS #### [place] [address] CMPon 11-05-2024 Albumin Level 2.7 G/dL Low 3.2-4.8 [facility] Comment on above: Performed By: #### Amina RUGBre #### [place] [address] Albumin/Globulin [Mass ratio] 0.8 {ratio} Low 0.9-1.6 [facility] Comment on above: Performed By: #### Amina RUGBre #### [address] [address] ALP [Catalytic activity/Vol] 90 U/L Normal 38-126 [facility] Comment on above: Performed By: #### D RUGS #### [address] [address] ALT [Catalytic activity/Vol] 41 U/L Normal 10-49 [facility] Comment on above: Performed By: #### D RUGS #### [address] [address] AST [Catalytic activity/Vol] 51 U/L High 8-34 [facility] Comment on above: Performed By: #### D RUGS #### [address] [address] Bili Total 0.40 mg/dL Normal 0.20-1.20 [facility] Comment on above: Result Comment: Use of this assay is not recommended for patients undergoing treatment with eltrombopag due to the potential for falsely elevated results. Performed By: #### D RUGS #### [address] [address] BUN/Creatinine Ratio 28.7 ratio High 10.0-22.0 [facility] Comment on above: Performed By: #### D RUGBre #### [address] [address] Calcium [Mass/Vol] 8.5 mg/dL Low 8.7-10.4 [facility] Comment on above: Performed By: #### Amina RUGS #### [address] [address] Chloride [Moles/Vol] 101 mmol/L Normal 98-110 [facility] Comment on above: Performed By: #### D RUGS #### [address] [address] CO2 [Moles/Vol] 30 mmol/L Normal 22-32 [facility] Comment on above: Performed By: #### D RUGS #### [address] [address] Creatinine [Mass/Vol] 0.87 mg/dL Normal 0.50-1.20 [facility] Comment on above: Result Comment: Test ing performed on Affashion analyzer using enzymatic creatinine methodology. Performed By: #### Amina RUGS #### [address] [address] Electrolyte Balance 8.0 mEq/L Normal 4.0-15.0 [facility] Comment on above: Performed By: #### Amina RUGS #### [address] [address] Globulin 3.3 G/dL Normal 1.5-3.8 [facility] Comment on above: Performed By: #### D RUGS #### [address] [address] Glucose [Mass/Vol] 116 mg/dL High 82-115 [facility] Comment on above: Performed By: #### Amina RUGS #### [address] [address] Potassium [Moles/Vol] 4.6 mmol/L Normal 3.5-5.0 [facility] Comment on above: Performed By: #### Amina GONZALESS #### [address] [address] Sodium [Moles/Vol] 139 mmol/L Normal 136-145 [facility] Comment on above: Performed By: #### D RUGS #### [address] [address] Total Protein 6.0 G/dL Normal 5.7-8.2 [facility] Comment on above: Performed By: #### Amina GONZALESS #### [address] [address] Urea nitrogen [Mass/Vol] 25.0 mg/dL High 8.0-22.0 [facility] Comment on above: Performed By: #### Amina RUGS #### [address] [address] LABORATORYOrdered By: SYSTEM SYSTEM on 11-05-2024 Albumin BCP dye [Mass/Vol] 2.7 G/dL Low 3.2 - 4.8 G/dL ADM SS Albumin/Globulin [Mass ratio] 0.8 {ratio} Low 0.9 - 1.6 ratio ADM SS ALP [Catalytic activity/Vol] 90 U/L Normal 38 - 126 U/L ADM SS ALT No additional P-5'-P [Catalytic activity/Vol] 41 U/L Normal 10 - 49 U/L ADM SS AST [Catalytic activity/Vol] 51 U/L High 8 - 34 U/L ADM SS Bilirubin [Mass/Vol] 0.40 mg/dL Normal 0.20 - 1.20 mg/dL ADM SS Comment on above: Interpretive Data: U se of this assay is not recommended for patients undergoing treatment with eltrombopag due to the potential for falsely elevated results. Globulin 3.3 G/dL Normal 1.5 - 3.8 G/dL ADM SS Protein [Mass/Vol] 6.0 G/dL Normal 5.7 - 8.2 G/dL ADM SS LABORATORYOrdered By: Gabriela Lua on 11-05-2024 Base Excess 4.1 mmol/L Invalid Interpretation Code Main Rapid [facility] SS CO2 [Moles/Vol] 30.0 mmol/L Normal 22.0 - 30.0 mmol/L [facility] HCO3 (Bld) [Moles/Vol] 28.7 mmol/L Normal 21.0 - 29.0 mmol/L [facility] Oxygen (Bld) [Partial pressure] 73.4 mm[Hg] Low 74.0 - 108.0 mm Hg [facility] SS pCO2 42.9 mm[Hg] Normal 32.0 - 46.0 mm Hg [facility] SS pH (Bld) 7.443 [pH] Normal 7.380 - 7.460 [facility] SS MGon 11-05-2024 Magnesium [Mass/Vol] 2.0 mg/dL Normal 1.6-2.4 [facility] Comment on above: Performed By: #### D RUGBre #### [place] [address] MYCOon 11-05-2024 Mycoplasma IgG Negative Normal [facility] Comment on above: Result Comment: INTE RPRETATION OF MYCOPLASMA IgG BY EIA: Negative: No detectable M. pneumoniae IgG antibody. Positive: Mycoplasma pneumoniae IgG antibody Detected. Equivocal: Equivocal for IgG antibodies to Mycoplasma pneumoniae. Suggest repeat testing in 10-14 days. Performed By: #### L AC #### [address] [address] XR CHEST 1 VIEWon 11-05-2024 XR CHEST 1 VIEW ORIGINAL EXAMINATION: ONE XRAY VIEW OF THE CHEST11/05/2024 6:27 am COMPARISON: Chest radiograph and CTA chest 11/04/2024 HISTORY: ORDERING SYSTEM PROVIDED HISTORY: Reason for Exam: intubated FINDINGS: Similar position of the endotracheal tube and partially imaged enteric tube. The cardiomediastinal silhouette is stable. Central vascular congestion and peribronchial cuffing. Diffuse interstitial prominence, similar to the prior exam. Upper lung emphysematous changes. Small bilateral pleural effusions are unchanged. No pneumothorax. IMPRESSION: Findings above most consistent with stable pulmonary edema. I have personally reviewed the images of this examination, and agree with the resident's findings and interpretation. Interpreted by: Genaro No MD Preliminary Report By: Rosy Aggarwal Electronically signed By Genaro No MD Dictated Date: 11/05/2024 6:29:52 AM Prelim Date: 11/05/2024 6:32:42 AM Sign Date: 11/05/2024 6:36:29 AM Ordering Provider: VANDANA Soto [facility] .Auto Diffon 11-04-2024 Basophil, Absolute 0.1 10 3/mcL Normal 0.0-0.3 [facility] Comment on above: Performed By: #### L AC #### [address] [address] Basophils/100 WBC (Bld) 0.5 % Normal 0.0-2.5 [facility] Comment on above: Performed By: #### L AC #### [address] [address] Eosinophil, Absolute 0.0 10 3/mcL Normal 0.0-0.7 [facility] Comment on above: Performed By: #### L AC #### [address] [address] Eosinophils/100 WBC (Bld) 0.0 % Normal 0.0-6.0 [facility] Comment on above: Performed By: #### L AC #### [address] [address] Lymphocyte, Absolute 0.5 10 3/mcL Low 0.9-4.3 [facility] Comment on above: Performed By: #### L AC #### [address] [address] Lymphocytes/100 WBC (Bld) 3.0 % Low 20.0-40.0 [facility] Comment on above: Performed By: #### L AC #### [address] [address] Monocyte, Absolute 0.6 10 3/mcL Normal 0.1-1.4 [facility] Comment on above: Performed By: #### L AC #### [address] [address] Monocytes/100 WBC (Bld) 3.2 % Normal 2.0-13.0 [facility] Comment on above: Performed By: #### L AC #### [address] [address] Neutrophils/100 WBC (Bld) 93.3 % High 50.0-75.0 [facility] Comment on above: Performed By: #### L AC #### [address] [address] .GFRon 11-04-2024 GFR >60 [facility] Comment on above: Result Comment: GFR Population mean for , Non- Americans Ages 20-29 = 116 mL/min/1.73 sq.m. Ages 30-39 = 107 mL/min/1.73 sq.m. Ages 40-49 = 99 mL/min/1.73 sq.m. Ages 50-59 = 93 mL/min/1.73 sq.m. Ages 60-69 = 85 mL/min/1.73 sq.m. Ages 70+ = 75 mL/min/1.73 sq.m. Chronic Kidney Disease: Less than 60 mL/min/1.73 square meters End Stage Renal Disease: Less than 15 mL/min/1.73 square meters Performed By: #### L AC #### [address] [address] GFR Non- >60 [facility]IN Comment on above: Result Comment: GFR Population mean for , Non- Americans Ages 20-29 = 116 mL/min/1.73 sq.m. Ages 30-39 = 107 mL/min/1.73 sq.m. Ages 40-49 = 99 mL/min/1.73 sq.m. Ages 50-59 = 93 mL/min/1.73 sq.m. Ages 60-69 = 85 mL/min/1.73 sq.m. Ages 70+ = 75 mL/min/1.73 sq.m. Chronic Kidney Disease: Less than 60 mL/min/1.73 square meters End Stage Renal Disease: Less than 15 mL/min/1.73 square meters Performed By: #### L AC #### [place] [address] .NEUABSon 11-04-2024 Neutrophil, Absolute 16.1 10 3/mcL High 2.3-8.1 [facility] Comment on above: Performed By: #### L AC #### [place] [id number] BGon 11-04-2024 Base excess Calc (Bld) [Moles/Vol] 6.2 mmol/L [facility]IN Comment on above: Performed By: #### C BC, ADIFF, ANEU, APTT, CMP, HFP, GFR #### [address] [address] CO2 [Moles/Vol] 33.3 mmol/L High 22.0-30.0 [facility] Comment on above: Performed By: #### C BC, ADIFF, ANEU, APTT, CMP, HFP, GFR #### [address] [address] HCO3 (Bld) [Moles/Vol] 31.8 mmol/L High 21.0-29.0 [facility] Comment on above: Performed By: #### C BC, ADIFF, ANEU, APTT, CMP, HFP, GFR #### [address] [address] Oxygen (Bld) [Partial pressure] 105.8 mm[Hg] Normal 74.0-108.0 [facility] Comment on above: Performed By: #### C BC, ADIFF, ANEU, APTT, CMP, HFP, GFR #### [place] [id number] Oxygen saturation in Blood 98.1 % High 92.0-96.0 [facility] Comment on above: Performed By: #### C BC, ADIFF, ANEU, APTT, CMP, HFP, GFR #### [place] [id number] pCO2 49.5 mmHg High 32.0-46.0 [facility] Comment on above: Performed By: #### C BC, ADIFF, ANEU, APTT, CMP, HFP, GFR #### [place] [id number] pH (Bld) 7.425 [pH] Normal 7.380-7.460 [facility] Comment on above: Performed By: #### C BC, ADIFF, ANEU, APTT, CMP, HFP, GFR #### [place] [id number] CBCon 11-04-2024 Erythrocyte distribution width (RBC) [Ratio] 14.4 % Normal 11.5-15.5 [facility] Comment on above: Performed By: #### L AC #### [place] [address] Hematocrit (Bld) [Volume fraction] 35.3 % Normal 34.0-46.0 [facility] Comment on above: Performed By: #### L AC #### [place] [address] Hgb 11.9 G/dL Low 12.0-16.0 [facility] Comment on above: Performed By: #### L AC #### [place] [id number] MCH (RBC) [Entitic mass] 30.6 pg Normal 27.0-33.0 [facility] Comment on above: Performed By: #### L AC #### [place] [address] MCHC 33.7 G/dL Normal 32.0-36.0 [facility] Comment on above: Performed By: #### L AC #### [address] [address] MCV (RBC) [Entitic vol] 90.7 fL Normal 80.0-99.0 [facility] Comment on above: Performed By: #### L AC #### [place] [id number] Platelet 442 10 3/mcL Normal 150-450 [facility] Comment on above: Performed By: #### L AC #### [place] [address] Platelet mean volume (Bld) [Entitic vol] 6.9 fL Normal 6.6-10.5 [facility] Comment on above: Performed By: #### L AC #### [place] [address] RBC 3.89 10 6/mcL Low 4.10-5.30 [facility] Comment on above: Performed By: #### L AC #### [place] [address] WBC 17.2 10 3/mcL High 4.5-10.8 [facility] Comment on above: Performed By: #### L AC #### [place] [address] CBC + DIFFon 11-04-2024 Baso # 0.10 x10EE3/UL Normal 0.00 - 0.10 [facility] Comment on above: Performed By: #### 2 38326 ####[facility],[address] [place] [address] Basophils/100 WBC (Bld) 0.7 % Normal 0.0 - 2.[address] [facility] Comment on above: Performed By: #### 2 35041 ####[facility],[address] [place], [place] [id number] CBC + DIFF Normal [facility] Comment on above: Result Comment: CBC- COMPLETE BLOOD COUNT Performed By: #### 2 29505 ####[facility],[address] [place] [address] 23976 EO # 0.12 x10EE3/UL Normal 0.00 - 0.50 [facility] Comment on above: Performed By: #### 2 56971 ####[facility],[address] [place] [address]492 Eosinophils/100 WBC (Bld) 0.8 % Normal 0.0 - 7.[address] [facility] Comment on above: Performed By: #### 2 65042 ####[facility],[address] [place] [address] Erythrocyte distribution width (RBC) [Ratio] 14.1 % Normal 12.0 - 15.[address] [facility] Comment on above: Performed By: #### 2 85115 ####[facility],[address] [place] [address] Hematocrit (Bld) [Volume fraction] 36.4 % Normal 34.0 - 46.[address] [facility] Comment on above: Performed By: #### 2 09725 ####[facility],[address] [place], [place] [id number] Hemoglobin (Bld) [Mass/Vol] 11.9 g/dL Low 12.0 - 16.[address] [facility] Comment on above: Performed By: #### 2 64174 ####[facility],[address] [place] [address] 25090 Lymph # 6.40 x10EE3/UL High 0.80 - 2.80 [facility] Comment on above: Performed By: #### 2 02640 ####[facility],[address] [place] [address] 24013 Lymphocytes/100 WBC (Bld) 43.9 % Normal 20.0 - 45.[address] [facility] Comment on above: Performed By: #### 2 21679 ####[facility],[address] [place] [address] 34477 MANUAL DIFF N/A Normal [facility] Comment on above: Performed By: #### 2 25411 ####[facility],[address] [place] [address] 90478 MCH (RBC) [Entitic mass] 30 pg Normal 27 - [address] [facility] Comment on above: Performed By: #### 2 12487 ####[facility],[address] [place] [address] 66411 MCHC 33 X10 3 Normal 32 - [address] [facility] Comment on above: Performed By: #### 2 08583 ####[facility],[address] [place] [address] 11464 MCV (RBC) [Entitic vol] 93 fL Normal 80 - [address] [facility] Comment on above: Performed By: #### 2 99831 ####[facility],[address] [place] [address] Doddridge # 1.36 x10EE3/UL High 0.20 - 1.00 [facility] Comment on above: Performed By: #### 2 54731 ####[facility],[address] [place] [address] 83035 MONOS % 9.4 % Normal 0.0 - 10.[address] [facility] Comment on above: Performed By: #### 2 76963 ####[facility],[address] [place] [address] 09171 Morphology Dandy (Bld) [Interp] N/A Normal [facility] Comment on above: Performed By: #### 2 10016 ####[facility],[address] [place], [place] [address] Neut # 6.60 x10EE3/UL Normal 1.50 - 7.10 [facility] Comment on above: Performed By: #### 2 94508 ####[facility],[address] [place] [address] 47882 Neutrophils/100 WBC (Bld) 45.3 % Low 46.0 - 76.[address] [facility] Comment on above: Performed By: #### 2 85093 ####[facility],[address] [place] [address] 50108 PLATELET 608 x10EE3/UL High 150 - 450 [facility] Comment on above: Performed By: #### 2 43205 ####[facility],[address] [place] [address] 69956 Platelet mean volume (Bld) [Entitic vol] 7.8 fL Normal 6.6 - 10.5 [facility] Comment on above: Result Comment: AUTO MATED DIFFERENTIAL Performed By: #### 2 97499 ####[facility],[address] [place] [address] 49971 RBC 3.92 x 10EE6/UL Low 4.10 - 5.30 [facility] Comment on above: Performed By: #### 2 83267 ####[facility],[address] [place] [address] 21044 WBC 14.6 x 10EE3/UL High 4.5 - 10.8 [facility] Comment on above: Performed By: #### 2 88826 ####[facility],[address] [place] [address] 36624 CHEST 1 VIEWon 11-04-2024 CHEST 1 VIEW Normal [facility] CHEST 1 VIEW (PICC/ET PLACEM ENTon 11-04-2024 CHEST 1 VIEW (PICC/ET PLACEMENT Normal [facility] CMPon 11-04-2024 Albumin Level 3.1 G/dL Low 3.2-4.8 [facility] Comment on above: Performed By: #### L AC #### [facility] [address] [place] [address] Albumin/Globulin [Mass ratio] 0.8 {ratio} Low 0.9-1.6 [facility] Comment on above: Performed By: #### L AC #### [facility] [address] [place] [address]3235 ALP [Catalytic activity/Vol] 99 U/L Normal 38-126 [facility] Comment on above: Performed By: #### L AC #### [address] [address] ALT [Catalytic activity/Vol] 42 U/L Normal 10-49 [facility] Comment on above: Performed By: #### L AC #### [address] [address] AST [Catalytic activity/Vol] 52 U/L High 8-34 [facility] Comment on above: Performed By: #### L AC #### [place] [id number] Bili Total 0.40 mg/dL Normal 0.20-1.20 [facility] Comment on above: Result Comment: Use of this assay is not recommended for patients undergoing treatment with eltrombopag due to the potential for falsely elevated results. Performed By: #### L AC #### [place] [id number] BUN/Creatinine Ratio 23.0 ratio High 10.0-22.0 [facility] Comment on above: Performed By: #### L AC #### [place] [id number] Calcium [Mass/Vol] 8.8 mg/dL Normal 8.7-10.4 [facility] Comment on above: Performed By: #### L AC #### [place] [id number] Chloride [Moles/Vol] 100 mmol/L Normal 98-110 [facility] Comment on above: Performed By: #### L AC #### [place] [id number] CO2 [Moles/Vol] 33 mmol/L High 22-32 [facility] Comment on above: Performed By: #### L AC #### [address] [address] Creatinine [Mass/Vol] 0.74 mg/dL Normal 0.50-1.20 [facility] Comment on above: Result Comment: Test ing performed on Affashion analyzer using enzymatic creatinine methodology. Performed By: #### L AC #### [place] [id number] Electrolyte Balance 9.0 mEq/L Normal 4.0-15.0 [facility] Comment on above: Performed By: #### L AC #### [address] [address] Globulin 3.8 G/dL Normal 1.5-3.8 [facility] Comment on above: Performed By: #### L AC #### [address] [address] Glucose [Mass/Vol] 140 mg/dL High 82-115 [facility] Comment on above: Performed By: #### L AC #### [address] [address] Potassium [Moles/Vol] 3.0 mmol/L Low 3.5-5.0 [facility] Comment on above: Performed By: #### L AC #### [address] [address] Sodium [Moles/Vol] 142 mmol/L Normal 136-145 [facility] Comment on above: Performed By: #### L AC #### [address] [address] Total Protein 6.9 G/dL Normal 5.7-8.2 [facility] Comment on above: Performed By: #### L AC #### [address] [address] Urea nitrogen [Mass/Vol] 17.0 mg/dL Normal 8.0-22.0 [facility] Comment on above: Performed By: #### L AC #### [address] [address] CMP with eGFRon 11-04-2024 AGE 69 years Normal [facility] Comment on above: Performed By: #### 2 28578 ####[facility],[address] [place] [address] 25397 Albumin [Mass/Vol] 3.0 g/dL Low 3.4 - 5.0 [facility] Comment on above: Performed By: #### 2 12496 ####[facility],[address] [place] [address] Albumin/Globulin [Mass ratio] 0.7 {ratio} Low 0.9 - 1.[address] [facility] Comment on above: Performed By: #### 2 98285 ####[facility],[address] [place] [address] 67078 ALK PHOS 99 U/L Normal 46 - [address] [facility] Comment on above: Performed By: #### 2 84724 ####[facility],[address] [place] [address] 87455 ALT [Catalytic activity/Vol] 39 U/L Normal 16 - [address] [facility] Comment on above: Performed By: #### 2 67020 ####[facility],[address] [place] [address] 14229 Anion gap [Moles/Vol] 14 mmol/L Normal 10 - 20 [facility] Comment on above: Performed By: #### 2 59693 ####[facility],[address] [place] [address] 46731 AST [Catalytic activity/Vol] 41 U/L High 13 - [address] [facility] Comment on above: Performed By: #### 2 71894 ####[facility],[address] [place] [address] 72630 B/C RATIO 12 ratio Normal 0 - [address] [facility] Comment on above: Performed By: #### 2 65202 ####[facility],[address] [place] [address] 82521 Bilirubin [Mass/Vol] 0.5 mg/dL Normal 0.2 - 1.[address] [facility] Comment on above: Performed By: #### 2 63488 ####[facility],[address] [place] [address] 27043 Calcium [Mass/Vol] 8.5 mg/dL Normal 8.5 - 10.1 [facility] Comment on above: Performed By: #### 2 02006 ####[facility],[address] [place] [address] 39912 Chloride [Moles/Vol] 100 mmol/L Normal 98 - [address] [facility] Comment on above: Performed By: #### 2 76169 ####[facility],[address] [place] [address] 66240 CMP with eGFR Normal [facility] Comment on above: Result Comment: COMP REHENSIVE METABOLIC PANEL Performed By: #### 2 29581 ####[facility],[address] [place] [address] 25595 CO2 [Moles/Vol] 28.6 mmol/L Normal 21.0 - 32.0 [facility] Comment on above: Performed By: #### 2 02061 ####[facility],[address] [place] [address] 45231 Creatinine [Mass/Vol] 1.22 mg/dL High 0.55 - 1.02 [facility] Comment on above: Performed By: #### 2 26428 ####[facility],[address] [place] [address] 02664 eGFR 44 ML/MINUTE Low 60 - 999 [facility] Comment on above: Performed By: #### 2 74612 ####[facility],[address] [place] [address] 88920 eGFR(AA) 53 ML/MINUTE Low 60 - 999 [facility] Comment on above: Result Comment: ACCO RDING TO THE NATIONAL KIDNEY DISEASE EDUCATION PROGRAM(NKDE), A NORMAL eGFRIS A VALUE GREATER THAN OR EQUAL TO 60 ML/MIN/1.73 SQ METERS.CHRONIC KIDNEY DISEASE: <60mL/MIN/1.73 SQ METERSKIDNEY FAILURE: <15mL/MIN/1.73 SQ METERSTHIS TEST SHOULD ONLY BE USED FOR PATIENTS 18 YEARS OF AGE AND OLDER. Performed By: #### 2 28114 ####[facility],[address] [place] [address] 31278 Globulin (S) [Mass/Vol] 4.1 g/dL High 1.5 - 3.[address] [facility] Comment on above: Performed By: #### 2 91666 ####[facility],[address] [place] [address] 24173 Glucose [Mass/Vol] 296 mg/dL High 74 - 106 [facility] Comment on above: Performed By: #### 2 72002 ####[facility],[address] [place] [address] 94770 Potassium [Moles/Vol] 2.6 mmol/L Critically low 3.5 - 5.[address] [facility] Comment on above: Result Comment: { CA LLED TO N MCKEON 07:31 MKY{ READ BACK BY SAME Performed By: #### 2 77123 ####[facility],[address] [place] [address] 05508 Protein [Mass/Vol] 7.1 g/dL Normal 6.4 - 8.2 [facility] Comment on above: Performed By: #### 2 06731 ####[facility],[address] [place] [address] 73035 Sodium [Moles/Vol] 140 mmol/L Normal 136 - 145 [facility] Comment on above: Performed By: #### 2 31969 ####[facility],[address] [place] [address] 76295 Urea nitrogen [Mass/Vol] 15 mg/dL Normal 7 - [address] [facility] Comment on above: Performed By: #### 2 68142 ####[facility],[address] [place] [address] 76689 CORONAVIRUS (SARS) ANTIGEN T ESTon 11-04-2024 EXTERNAL QC DONE? YES Normal [facility] Comment on above: Performed By: #### 2 88814 ####[facility],[address] [place] [address] 58578 INTERNAL CONTROL PASS Normal [facility] Comment on above: Performed By: #### 2 37649 ####[facility],[address] [place] [address] 26080 SARS ANTIGEN Negative Normal NORMAL: NEGATIVE [facility] Comment on above: Performed By: #### 2 40786 ####[facility],[address] [place] [address] 92197 SEND TO ? NO Normal [facility] Comment on above: Result Comment: SARS -CoV-2THIS TEST IS BEING USED UNDER THE FDA EUA PROCEDURE. THIS ASSAY HAS BEENVALIDATED AT [facility] FOR USE WITH NASAL AND NASOPHARYNGEAL SWABSPECIMENS.INTERPRETIVE DATATEST RESULTS SHOULD ALWAYS BE CONSIDERED IN THE CONTEXT OF CLINICALOBSERVATIONS AND EPIDEMIOLOGICAL DATA IN MAKING FINAL DIAGNOSIS AND PATIENTMANAGEMENT DECISIONS. PATIENT MANAGEMENT SHOULD FOLLOW CURRENT CDC GUIDELINES.THE JAILENE SARS ANTIGEN NEO DOES NOT DIFFERENTIATE BETWEEN SARS-CoV & SARS-CoV-2.A POSITIVE TEST RESULT INDICATES THE PRESENCE OF SARS-CoV-2 NUCLEOCAPSID PROTEINANTIGEN, AND THE PATIENT IS INFECTED WITH THE VIRUS AND PRESUMED TO BECONTAGIOUS.A NEGATIVE TEST RESULT FOR THIS TEST MEANS THAT SARS-CoV-2 NUCLEOCAPSID PROTEINANTIGEN WAS NOT PRESENT IN THE SPECIMEN ABOVE THE LIMIT OF DETECTION. HOWEVER, ANEGATIVE RESULT DOES NOT RULE OUT COVID-19 AND SHOULD NOT BE USED THE SOLEBASIS FOR TREATMENT OR PATIENT MANAGEMENT DECISIONS. A NEGATIVE RESULT DOES NOTEXCLUDE THE POSSIBILITY OF COVID-19. NEGATIVE RESULTS, FROM PATIENTS WITHSYMPTOM ONSET BEYOND FIVE DAYS, SHOULD BE TREATED PRESUMPTIVE ANDCONFIRMATION WITH A MOLECULAR ASSAY, IF NECESSARY, FOR PATIENT MANAGEMENT, MAYBE PERFORMED.WHEN DIAGNOSTIC TESTING IS NEGATIVE, THE POSSIBLILTY OF A FALSE NEGATIVE RESULTSHOULD BE CONSIDERED IN THE CONTEXT OF A PATIENT'S RECENT EXPOSURES AND THEPRESENCE OF CLINICAL SIGNS AND SYMPTOMS CONSISTENT WITH COVID-19. THEPOSSIBILITY OF A FALSE NEGATIVE RESULT SHOULD ESPECIALLY BE CONSIDERED IF THEPATIENT'S RECENT EXPOSURES OR CLINICAL PRESENTATION INDICATE THAT COVID-19 ISLIKELY, AND DIAGNOSTIC TESTS FOR OTHER CAUSES OF ILLNESS (e.g., OTHERRESPIRATORY ILLNESS) ARE NEGATIVE. IF COVID-19 IS STILL SUSPECTED BASED ONEXPOSURE HISTORY TOGETHER WITH OTHER CLINICAL FINDINGS, RE-TESTING SHOULD BECONSIDERED BY HEALTHCARE PROVIDERS IN CONSULTATION WITH PUBLIC [facility]. Performed By: #### 2 99192 ####[facility],[address] [place], [place] [address] CT ANGIOGRAPHY CHEST W/CONTR Darling 11-04-2024 CT ANGIOGRAPHY CHEST W/CONTRAST ORIGINAL EXAMINATION: CTA OF THE CHEST 11/04/2024 8:02 pm TECHNIQUE: CTA of the chest was performed after the administration of intravenous contrast. Multiplanar reformatted images are provided for review. MIP images are provided for review. Automated exposure control, iterative reconstruction, and/or weight based adjustment of the mA/kV was utilized to reduce the radiation dose to as low as reasonably achievable. COMPARISON: Same day portable chest HISTORY: ORDERING SYSTEM PROVIDED HISTORY: Reason for Exam: SOB, ACUTE RESP FAILURE, ELEVATED D DIMER. SOB, age adjusted d dimer high FINDINGS: Motion artifact obscures some evaluation. Pulmonary Arteries: Pulmonary arteries are adequately opacified for evaluation to the level of the segmental arteries. A few subsegmental arteries are difficult to evaluate. No evidence of intraluminal filling defect to suggest pulmonary embolism. Main pulmonary artery is borderline enlarged measuring 2.9 cm which can be seen with pulmonary hypertension. Mediastinum: There are suspected numerous borderline enlarged mediastinal and right hilar lymph nodes which are likely hyperplastic/reactive although this is incompletely assessed secondary to bolus timing. The heart is borderline enlarged in size without pericardial effusion. Biatrial enlargement. Coronary artery atherosclerotic calcifications/stents.. There is no acute abnormality of the atherosclerotic thoracic aorta. Lungs/pleura: The endotracheal tube terminates approximately 4.5 cm above the steve. The lungs demonstrate severe emphysematous changes. There are small bilateral pleural effusions with adjacent atelectasis/consolidati on. Bilateral lower lobe predominant bronchial wall thickening with mucous plugging. Areas of interlobular septal thickening are noted. Scattered calcified granulomas. Ground-glass and consolidative opacities are seen along the posterolateral aspect of the right upper lobe (2:100), which may represent a superimposed infectious/inflammatory process versus layering pleural fluid. Upper Abdomen: Reflux of contrast within the IVC and hepatic veins are noted. Asymmetric atrophy of the right kidney calcified splenic granuloma. An enteric tube is seen coursing beyond the gastroesophageal junction terminating beyond the inferior field of view. Contrast excretion is seen within the left renal collecting systems. Soft Tissues/Bones: Multilevel degenerative changes of the spine, with moderate to severe bony spinal canal stenosis at T9-T10. Severe degenerative changes of the bilateral shoulders. IMPRESSION: No evidence of pulmonary embolism to the level of the segmental pulmonary arteries. Support devices as above. Constellation of findings suggesting pulmonary congestion/edema. A superimposed infectious/inflammatory process is difficult to exclude. Small bilateral pleural effusions with adjacent atelectasis/consolidati on. Findings suggesting right ventricular heart dysfunction. Severe underlying emphysema. Moderate to severe bony spinal canal stenosis at T9-T10. If symptomatic consider MRI. I have personally reviewed the images of this examination and have edited the resident's findings and interpretation. Interpreted by: Bello Thurman Preliminary Report By: Bruce Saleh Electronically signed By Bello Thurman Dictated Date: 11/04/2024 8:03:57 PM Prelim Date: 11/04/2024 8:13:05 PM Sign Date: 11/04/2024 8:33:11 PM Ordering Provider: KAYLA RYAN [facility] MAIN CT CHEST (PE PROTOCOL)on CT CHEST (PE PROTOCOL) [facility] CULTURE BLOOD [MARIA TERESA]on Microscopic examination of blood, culture CULTURE BLOOD [PLAIN] _BLO[facility] CULTURE_ [facility] FOR SCANNED REPORT 11/11/[email or web address].COMPL ETE [facility] Comment on above: Performed By: #### 2 [id number] ####[facility],[address] [place] [address] Microscopic examination of blood, culture CULTURE BLOOD [PLAIN] _BLOOD CULTURE_ [facility] FOR [facility]ANNED REPORT 11/11/[email or web address].COMPL ETE [facility] Comment on above: Performed By: #### 2 62915 ####[facility],[address] [place] [address] CVFLURVon 11-04-2024 FLU A PCR Negative Normal Negative [facility] Comment on above: Result Comment: [place] s [id number] Performed By: #### L AC #### [facility] [address] [place] [address] FLU B PCR Negative Normal Negative [facility] Comment on above: Result Comment: Note s [id number] Performed By: #### L AC #### [facility] [address] [place] [address]17 RSV PCR Negative Normal Negative [facility] Comment on above: Result Comment: Note s [id number] Performed By: #### L AC #### [facility] [address] [place] [address] 10301 SARS-CoV-2 (COVID-19) RNA ALEJANDRO+probe Ql (Unsp spec) Negative Normal Negative [facility] Comment on above: Result Comment: Note s [id number] This test has been authorized by FDA under an EUA for use by authorized laboratories and has not been FDA cleared or approved. Results from the Xpert Xpress SARS-CoV-2/Flu/RSV or Xpert Xpress SARS-CoV-2 only test should be correlated with the clinical history, epidemiological data, and other data available to the clinician evaluating the patient. Performance of the Xpert Xpress SARS-CoV-2/Flu/RSV or Xpert Xpress SARS-CoV-2 only test has only been established in nasopharyngeal swab specimens. Erroneous test results might occur from improper specimen collection; failure to follow the recommended sample collection, handling, and storage procedures; technical error; or sample mix-up.False negative results may occur if virus is present at levels below the analytical limit of detection. Viral nucleic acid may persist in vivo, independent of virus viability. Detection of analyte target(s) does not imply that the corresponding virus(es) are infectious or are the causative agents for clinical symptoms.Recent patient exposure to FluMist or other live attenuated influenza vaccines may cause inaccurate positive results. Performed By: #### L AC #### [address] [address] D-DIMER, QUANTITATIVEon 10-23 D-DIMER QUANT 1795 ng/ml High 0 - 230 [facility] Comment on above: Performed By: #### 2 19632 ####[place] [id number] D-DIMER, QUANTITATIVE Normal [facility] [facility] Comment on above: Result Comment: SILVANO T D-DIMER Performed By: #### 2 [id number] ####[facility],[address] [place], [place] [id number] FEon 11-04-2024 Iron [Mass/Vol] 18 ug/dL Low 50-170 [facility] Comment on above: Performed By: #### L AC #### [place] [id number] [place] 11-04-2024 Ferritin [Mass/Vol] 88.7 ng/mL Normal 8.0-252.0 [facility] Comment on above: Performed By: #### L AC #### [place] [id number] IBCon 11-04-2024 TIBC 328 mcg/dL Normal 250-500 [facility] Comment on above: Performed By: #### L AC #### [place] [id number] INFLUENZA VIRUS RAPID A/Bon 11-04-2024 INFLUENZA VIRUS RAPID A/B Normal [facility] Comment on above: Performed By: #### 2 [id number] ####[facility],[address] [place] [address] LABORATORYOrdered By: SYSTEM SYSTEM on 11-04-2024 Natriuretic peptide.B prohormone N-Terminal IA [Mass/Vol] 7106 pg/mL High 0 - 900 pg/mL ADM SS Albumin BCP dye [Mass/Vol] 3.1 G/dL Low 3.2 - 4.8 G/dL ADM SS Albumin/Globulin [Mass ratio] 0.8 {ratio} Low 0.9 - 1.6 ratio AH ADM SS ALP [Catalytic activity/Vol] 99 U/L Normal 38 - 126 U/L ADM SS ALT No additional P-5'-P [Catalytic activity/Vol] 42 U/L Normal 10 - 49 U/L ADM SS AST [Catalytic activity/Vol] 52 U/L High 8 - 34 U/L ADM SS Bilirubin [Mass/Vol] 0.40 mg/dL Normal 0.20 - 1.20 mg/dL ADM SS Comment on above: Interpretive Data: U se of this assay is not recommended for patients undergoing treatment with eltrombopag due to the potential for falsely elevated results. Ferritin [Mass/Vol] 88.7 ng/mL Normal 8.0 - 25 2.0 ng/mL ADM SS Globulin 3.8 G/dL Normal 1.5 - 3.8 G/dL ADM SS Iron [Mass/Vol] 18 ug/dL Low 50 - 170 mcg/dL ADM SS Iron binding capacity [Mass/Vol] 328 mcg/dL Normal 250 - 500 mcg/dL ADM SS Lactate [Moles/Vol] 1.4 mmol/L Normal 0.5 - 2. 2 mmol/L ADM SS Protein [Mass/Vol] 6.9 G/dL Normal 5.7 - 8.2 G/dL ADM SS Transferrin [Mass/Vol] 278 mg/dL Normal 202 - 336 mg/dL ADM SS LABORATORYOrdered By: Venkatesh Santillan on 11-04-2024 M. pneumoniae IgG IA Ql (S) Negative Invalid Interpretation Code Auto Viro/Sero SS Comment on above: Interpretive Data: I NTERPRETATION OF MYCOPLASMA IgG BY EIA: Negative: No detectable M. pneumoniae IgG antibody. Positive: Mycoplasma pneumoniae IgG antibody Detected. Equivocal: Equivocal for IgG antibodies to Mycoplasma pneumoniae. Suggest repeat testing in 10-14 days. M. pneumoniae IgM IA Ql (S) Negative 8 (11/04/24 12:51 PM) Normal Man Viro/Sero SS Comment on above: Interpretive Data: I NTERPRETATION OF MYCOPLASMA IgM: Negative: IgM to M. pneumoniae Absent, or at levels below the assay limit of detection. Positive: IgM to M. pneumoniae Present. Invalid: Test results are invalid due to invalid internal control. Assay was performed in duplicate. Repeat testing is suggested if clinically indicated. LABORATORYOrdered By: Jeannette green on 11-04-2024 Base Excess 6.2 mmol/L Invalid Interpretation Code Main Rapid Comm SS CO2 [Moles/Vol] 33.3 mmol/L High 22.0 - 30.0 mmol/L Main Rapid Comm SS HCO3 (Bld) [Moles/Vol] 31.8 mmol/L High 21.0 - 29.0 mmol/L Main Rapid Comm SS Oxygen (Bld) [Partial pressure] 105.8 mm[Hg] Normal 74.0 - 108.0 mm Hg AH Main Rapid Comm SS pCO2 49.5 mm[Hg] High 32.0 - 46.0 mm Hg AH Main Rapid Comm SS pH (Bld) 7.425 [pH] Normal 7.380 - 7.460 Main Rapid Comm SS LACon 11-04-2024 Lactic Acid Lvl 1.4 mmol/L Normal 0.5-2.2 [facility] Comment on above: Performed By: #### L AC #### [place] [id number] LACTATEon 11-04-2024 Lactate [Moles/Vol] 1.8 mmol/L Normal 0.4 - 2.[address] [facility] Comment on above: Performed By: #### 2 76806 ####[facility],[address] [place] [address] 86233 Lactate [Moles/Vol] 4.6 mmol/L Critically high 0.4 - 2.[address] [facility] Comment on above: Result Comment: { CA LLED TO N LENOX 0727 MKY{ READ BACK BY SAME LACTATE 3 HR NOTIFIED TO: _ENRIQUE_P 11/04/24.MKY. . . LACTATE 3 HR NOTIFIED BY: _MKY 11/04/24.MKY. . . Performed By: #### 2 41559 ####[facility],[address] [place] [address] 09854 MGon 11-04-2024 Magnesium [Mass/Vol] 1.9 mg/dL Normal 1.6-2.4 [facility] Comment on above: Performed By: #### L AC #### [place] [id number] MYCOon 11-04-2024 Mycoplasma IgM Negative Normal [facility] Comment on above: Result Comment: INTE RPRETATION OF MYCOPLASMA IgM: Negative: IgM to M. pneumoniae Absent, or at levels below the assay limit of detection. Positive: IgM to M. pneumoniae Present. Invalid: Test results are invalid due to invalid internal control. Assay was performed in duplicate. Repeat testing is suggested if clinically indicated. Performed By: #### L AC #### [address] [place] [address] NT-proBNPon 11-04-2024 Natriuretic peptide B (Bld) [Mass/Vol] 4211 pg/mL High 0 - [address] [facility] Comment on above: Performed By: #### 2 69328 ####[facility],[address] [place] [address] 34645 No Panel Informationon 11-04 Legionella Urine Ag Presumptive negative for L. pneumophila serogroup 1 antigen in urine, suggesting no recent or current infection. Legionnaire's disease cannot be ruled out since other serogroups and species may also cause disease. [facility] Streptococcus Pneumoniae Urine Antig Presumptive negative for pneumococcal pneumonia, suggesting no current or recent pneumococcal infection. Infection due to Strep pneumoniae cannot be ruled out since the antigen present in the sample may be below the detection limit of the test. [facility] Comment on above: This test has not be en evaluated on patients taking antibiotics for greater than 24 hours or on patients who have recently completed an antibiotic regimen. The accuracy of this test has not been proven in young children. Microscopic examination of blood, culture Blood Culture: No Growth at 5 days. [facility] PBNPon 11-04-2024 Natriuretic peptide B (Bld) [Mass/Vol] 7106 pg/mL High 0-900 [facility] Comment on above: Order Comment: use e xisting specimen Performed By: #### L AC #### [place] [id number] RSVon 11-04-2024 RSV Normal [facility] Comment on above: Performed By: #### 2 57000 ####[facility],[address] [place] [address] 21651 TRFon 11-04-2024 Transferrin [Mass/Vol] 278 mg/dL Normal 202-336 [facility] Comment on above: Performed By: #### L AC #### [place] [address] TROPONINon 11-04-2024 HS TROPONIN 27.6 pg/mL Normal 0.0 - 51.[address] [facility] Comment on above: Performed By: #### 2 61600 ####[facility],[address] [place] [address] 42243 URINALYSISon 11-04-2024 Amorphous NONE Normal [facility] Comment on above: Performed By: #### 2 70453 ####[facility],[address] [place] [address] 27378 Bacteria TRACE Normal [facility] Comment on above: Performed By: #### 2 11929 ####[facility],[address] [place] [address] 35468 Bilirubin Ql (U) Negative Normal NORMAL: NEGATIVE [facility] Comment on above: Performed By: #### 2 85214 ####[facility],[address] [place] [address] 63910 Casts NONE Normal [facility] Comment on above: Performed By: #### 2 51118 ####[facility],[address] [place] [address] 91326 Clarity (U) clear Normal NORMAL: CLEAR [facility] Comment on above: Performed By: #### 2 58271 ####[facility],[address] [place] [address] 69580 Color (U) yellow Normal NORMAL: YELLOW [facility] Comment on above: Performed By: #### 2 38377 ####[facility],[address] [place] [address] 64628 Crystals LM Nom (Urine sed) NONE Normal [facility] Comment on above: Performed By: #### 2 85357 ####[facility],[address] [place] [address] 96351 Epi Cells NONE Normal [facility] Comment on above: Performed By: #### 2 96281 ####[facility],[address] [place] [address] 78630 Glucose Ql (U) 250 Abnormal NORMAL: NORMAL [facility] Comment on above: Performed By: #### 2 37900 ####[facility],[address] [place] [address] 54675 Hemoglobin Ql (U) 25 Abnormal NORMAL: NEGATIVE [facility] Comment on above: Performed By: #### 2 81003 ####[facility],[address] [place] [address] 33892 Ketone Negative Normal NORMAL: NEGATIVE [facility] Comment on above: Performed By: #### 2 85806 ####[facility],[address] [place] [address] 24497 Leukocytes Negative Normal NORMAL: NEGATIVE [facility] Comment on above: Performed By: #### 2 98352 ####[facility],[address] [place] [address] 89072 Mucous NONE Normal [facility] Comment on above: Performed By: #### 2 65750 ####[facility],[address] [place] [address] 55581 Nitrite Ql (U) Negative Normal NORMAL: NEGATIVE [facility] Comment on above: Performed By: #### 2 98403 ####[facility],[address] [place] [address] 34149 pH (U) 7 [pH] Normal NORMAL: 5.0-8.[address] [facility] Comment on above: Performed By: #### 2 74124 ####[facility],[address] [place] [address] 52253 Protein Ql (U) 500 Abnormal NORMAL: NEGATIVE [facility] Comment on above: Performed By: #### 2 52052 ####[facility],[address] [place] [address] 28793 Rbc 5-10 Normal 0-3/hpf [facility] Comment on above: Performed By: #### 2 62310 ####[facility],[address] [place] [address] 01282 Sp Stonewall 1.010 Normal NORMAL: 1.010-1.[address] [facility] Comment on above: Performed By: #### 2 80716 ####[facility],[address] [place] [address] Specimen Type R Normal [facility] Comment on above: Performed By: #### 2 65364 ####[facility],[address] [place], [place] [id number] Urinalysis dipstick W Reflex Microscopic panel (U) SEE BELOW Normal [facility] Comment on above: Result Comment: MICR OSCOPIC Performed By: #### 2 75684 ####[facility],[address] [place] [address] Urobilinog NORM Normal NORMAL: NORMAL [facility] Comment on above: Performed By: #### 2 60785 ####[facility],[address] [place] [address] Wbc 1-5 Normal 0-5/hpf [facility] Comment on above: Performed By: #### 2 90813 ####[facility],[address] [place], [place] [id number] Yeast NONE Normal [facility] Comment on above: Performed By: #### 2 16124 ####[facility],[address] [place] [address] 33592 URINE CULTURE [CCL]on 2024 Bacteria identified Cx Nom (U) Normal [facility] Comment on above: Performed By: #### 2 32539 ####[facility],[address] [place], [place] [id number] XR ABDOMEN APon 11-04-2024 XR ABDOMEN AP ORIGINAL EXAMINATION: ONE XRAY VIEW OF THE CHEST; ONE SUPINE XRAY VIEW(S) OF THE ABDOMEN 11/04/2024 12:32 pm COMPARISON: 09/04/2023 HISTORY: ORDERING SYSTEM PROVIDED HISTORY: Reason for Exam: Endotracheal tube placement IMPRESSION: Interval placement of an endotracheal tube with tip visualized approximately 5.6 cm from the level of the steve. Nasogastric tube has been placed coursing past the level of diaphragm with side hole in the level of the distal gastric body. Lung hyperinflation. Stable appearance of the cardiomediastinal silhouette. Unchanged diffuse interstitial and alveolar pattern in the bilateral lungs which may be related to diffuse edema versus a diffuse interstitial infectious or inflammatory process. Mild blunting of the bilateral costophrenic angles suggestive of small bilateral pleural effusions. No pneumothorax. Severe right glenohumeral joint degenerative change. Interpreted by: Aranza Reddy Preliminary Report By: Aranza Reddy Electronically signed By Aranza Reddy Dictated Date: 11/04/2024 12:54:24 PM Prelim Date: 11/04/2024 12:56:39 PM Sign Date: 11/04/2024 12:56:39 PM Ordering Provider: KAYLA RYAN [facility] XR CHEST 1 VIEWon 11-04-2024 XR CHEST 1 VIEW ORIGINAL EXAMINATION: ONE XRAY VIEW OF THE CHEST; ONE SUPINE XRAY VIEW(S) OF THE ABDOMEN 11/04/2024 12:32 pm COMPARISON: 09/04/2023 HISTORY: ORDERING SYSTEM PROVIDED HISTORY: Reason for Exam: Endotracheal tube placement IMPRESSION: Interval placement of an endotracheal tube with tip visualized approximately 5.6 cm from the level of the steve. Nasogastric tube has been placed coursing past the level of diaphragm with side hole in the level of the distal gastric body. Lung hyperinflation. Stable appearance of the cardiomediastinal silhouette. Unchanged diffuse interstitial and alveolar pattern in the bilateral lungs which may be related to diffuse edema versus a diffuse interstitial infectious or inflammatory process. Mild blunting of the bilateral costophrenic angles suggestive of small bilateral pleural effusions. No pneumothorax. Severe right glenohumeral joint degenerative change. Interpreted by: Aranza Reddy Preliminary Report By: Aranza Reddy Electronically signed By Aranza Reddy Dictated Date: 11/04/2024 12:54:24 PM Prelim Date: 11/04/2024 12:56:39 PM Sign Date: 11/04/2024 12:56:39 PM Ordering Provider: KAYLA RYAN [facility] CBC + DIFF DAILYon 5 Baso # 0.04 x10EE3/UL Normal 0.00 - 0.10 [facility] Comment on above: Performed By: #### 2 21013 ####[facility],[address] [place], [place] [id number] Basophils/100 WBC (Bld) 0.6 % Normal 0.0 - 2.[address] [facility] Comment on above: Performed By: #### 2 41424 ####[facility],[address] [place] [address] CBC + DIFF DAILY Normal [facility] Comment on above: Result Comment: CBC- COMPLETE BLOOD COUNT Performed By: #### 2 16853 ####[facility],[address] [place] [address] EO # 0.13 x10EE3/UL Normal 0.00 - 0.50 [facility] Comment on above: Performed By: #### 2 22377 ####[facility],[address] [place] [address] Eosinophils/100 WBC (Bld) 2.0 % Normal 0.0 - 7.[address] [facility] Comment on above: Performed By: #### 2 34286 ####[facility],[address] [place] [address] Erythrocyte distribution width (RBC) [Ratio] 14.2 % Normal 12.0 - 15.[address] [facility] Comment on above: Performed By: #### 2 20421 ####[facility],[address] [place] [address] Hematocrit (Bld) [Volume fraction] 34.4 % Normal 34.0 - 46.[address] [facility] Comment on above: Performed By: #### 2 44141 ####[facility],[address] [place] [address] Hemoglobin (Bld) [Mass/Vol] 11.3 g/dL Low 12.0 - 16.[address] [facility] Comment on above: Performed By: #### 2 32058 ####[facility],[address] [place] [address] Lymph # 1.74 x10EE3/UL Normal 0.80 - 2.80 [facility] Comment on above: Performed By: #### 2 93362 ####[facility],[address] [place] [address] Lymphocytes/100 WBC (Bld) 26.5 % Normal 20.0 - 45.[address] [facility] Comment on above: Performed By: #### 2 48648 ####[facility],[address] [place] [address] MANUAL DIFF N/A Normal [facility] Comment on above: Performed By: #### 2 05098 ####[facility],[address] [place] [address] MCH (RBC) [Entitic mass] 30 pg Normal 27 - [address] [facility] Comment on above: Performed By: #### 2 45401 ####[facility],[address] [place] [address] MCHC 33 X10 3 Normal 32 - [address] [facility] Comment on above: Performed By: #### 2 76801 ####[facility],[address] [place] [address] MCV (RBC) [Entitic vol] 93 fL Normal 80 - [address] [facility] Comment on above: Performed By: #### 2 72919 ####[facility],[address] [place] [address] Doddridge # 0.86 x10EE3/UL Normal 0.20 - 1.00 [facility] Comment on above: Performed By: #### 2 05616 ####[facility],[address] [place] [address] MONOS % 13.1 % High 0.0 - 10.[address] [facility] Comment on above: Performed By: #### 2 03196 ####[facility],[address] [place], [place] [phone] Morphology Dandy (Bld) [Interp] N/A Normal [facility] Comment on above: Performed By: #### 2 11736 ####[facility],[address] [place] [address] 15843 Neut # 3.81 x10EE3/UL Normal 1.50 - 7.10 [facility] Comment on above: Performed By: #### 2 45926 ####[facility],[address] [place] [address] 41474 Neutrophils/100 WBC (Bld) 57.8 % Normal 46.0 - 76.[address] [facility] Comment on above: Performed By: #### 2 10443 ####[facility],[address] [place] [address] 06253 PLATELET 308 x10EE3/UL Normal 150 - 450 [facility] Comment on above: Performed By: #### 2 85229 ####[facility],[address] [place] [address] 94386 Platelet mean volume (Bld) [Entitic vol] 7.4 fL Normal 6.6 - 10.5 [facility] Comment on above: Result Comment: AUTO MATED DIFFERENTIAL Performed By: #### 2 71928 ####[facility],[address] [place] [address] 42030 RBC 3.71 x 10EE6/UL Low 4.10 - 5.30 [facility] Comment on above: Performed By: #### 2 70332 ####[facility],[address] [place] [address] 59582 WBC 6.6 x 10EE3/UL Normal 4.5 - 10.8 [facility] Comment on above: Performed By: #### 2 23299 ####[facility],[address] [place] [address] 79474 CMP with eGFR - DAILYon -0 AGE 69 years Normal [facility] Comment on above: Performed By: #### 2 67045 ####[facility],[address] [place] [address] 35106 Albumin [Mass/Vol] 2.4 g/dL Low 3.4 - 5.0 [facility] Comment on above: Performed By: #### 2 33335 ####[facility],[address] [place] [address] 33769 Albumin/Globulin [Mass ratio] 0.7 {ratio} Low 0.9 - 1.[address] [facility] Comment on above: Performed By: #### 2 31355 ####[facility],[address] [place] [address] 65660 ALK PHOS 99 U/L Normal 46 - [address] [facility] Comment on above: Performed By: #### 2 31610 ####[facility],[address] [place] [address] 10464 ALT [Catalytic activity/Vol] 51 U/L Normal 16 - [address] [facility] Comment on above: Performed By: #### 2 60609 ####[facility],[address] [place] [address] 97120 Anion gap [Moles/Vol] 9 mmol/L Low 10 - 20 [facility] Comment on above: Performed By: #### 2 83353 ####[facility],[address] [place] [address] 30681 AST [Catalytic activity/Vol] 31 U/L Normal 13 - [address] [facility] Comment on above: Performed By: #### 2 99361 ####[facility],[address] [place] [address] 83775 B/C RATIO 20 ratio Normal 0 - [address] [facility] Comment on above: Performed By: #### 2 35392 ####[facility],[address] [place] [address] 75556 Bilirubin [Mass/Vol] 0.5 mg/dL Normal 0.2 - 1.[address] [facility] Comment on above: Performed By: #### 2 70255 ####[facility],[address] [place] [address] 64171 Calcium [Mass/Vol] 8.7 mg/dL Normal 8.5 - 10.1 [facility] Comment on above: Performed By: #### 2 48128 ####[facility],[address] [place] [address] 40533 Chloride [Moles/Vol] 104 mmol/L Normal 98 - [address] [facility] Comment on above: Performed By: #### 2 60611 ####[facility],[address] [place] [address] 34308 CMP with eGFR - DAILY Normal [facility] Comment on above: Result Comment: COMP REHENSIVE METABOLIC PANEL Performed By: #### 2 23922 ####[facility],[address] [place] [address] 09992 CO2 [Moles/Vol] 31.4 mmol/L Normal 21.0 - 32.0 [facility] Comment on above: Performed By: #### 2 52827 ####[facility],[address] [place], [place] [phone] Creatinine [Mass/Vol] 0.82 mg/dL Normal 0.55 - 1.02 [facility] Comment on above: Performed By: #### 2 72517 ####[facility],[address] [place], [place] [address] GFR/1.73 sq M.predicted among non-blacks MDRD (S/P/Bld) [Vol rate/Area] mL/min/{1.73_m2} Normal 60 - [address] [facility] Comment on above: Performed By: #### 2 76177 ####[facility],[address] [place], [place] [phone] Result Comment: ACCO RDING TO THE NATIONAL KIDNEY DISEASE EDUCATION PROGRAM(NKDE), A NORMAL eGFRIS A VALUE GREATER THAN OR EQUAL TO 60 ML/MIN/1.73 SQ METERS.CHRONIC KIDNEY DISEASE: <60mL/MIN/1.73 SQ METERSKIDNEY FAILURE: <15mL/MIN/1.73 SQ METERS Globulin (S) [Mass/Vol] 3.6 g/dL Normal 1.5 - 3.[address] [facility] Comment on above: Performed By: #### 2 08403 ####[facility],[address] [place] [address] 85719 Glucose [Mass/Vol] 121 mg/dL High 74 - 106 [facility] Comment on above: Performed By: #### 2 85258 ####[facility],[address] [place] [address] 46576 Potassium [Moles/Vol] 3.4 mmol/L Low 3.5 - 5.1 [facility] Comment on above: Performed By: #### 2 18190 ####[facility] [facility],[address] [place] [address] 72195 Protein [Mass/Vol] 6.0 g/dL Low 6.4 - 8.2 [facility] Comment on above: Performed By: #### 2 71579 ####[facility],[address] [place] [address] 56589 Sodium [Moles/Vol] 141 mmol/L Normal 136 - 145 [facility] Comment on above: Performed By: #### 2 46085 ####[facility],[address] [place] [address] 48042 Urea nitrogen [Mass/Vol] 16 mg/dL Normal 7 - [address] [facility] Comment on above: Performed By: #### 2 62241 ####[facility],[address] [place] [address] 36761 CBC + DIFF DAILYon 4 Baso # 0.05 x10EE3/UL Normal 0.00 - 0.10 [facility] Comment on above: Performed By: #### 2 06216 ####[facility],[address] [place] [address] 82142 Basophils/100 WBC (Bld) 0.7 % Normal 0.0 - 2.[address] [facility] Comment on above: Performed By: #### 2 78576 ####[facility],[address] [place] [address] 45528 CBC + DIFF DAILY Normal [facility] Comment on above: Result Comment: CBC- COMPLETE BLOOD COUNT Performed By: #### 2 39066 ####[place] [address] EO # 0.07 x10EE3/UL Normal 0.00 - 0.50 [facility] Comment on above: Performed By: #### 2 41311 ####[place] [address] Eosinophils/100 WBC (Bld) 1.1 % Normal 0.0 - 7.[address] [facility] Comment on above: Performed By: #### 2 04556 ####[place] [address] Erythrocyte distribution width (RBC) [Ratio] 14.0 % Normal 12.0 - 15.[address] [facility] Comment on above: Performed By: #### 2 31313 ####[place] [address] Hematocrit (Bld) [Volume fraction] 32.5 % Low 34.0 - 46.[address] [facility] Comment on above: Performed By: #### 2 84778 ####[place] [address] Hemoglobin (Bld) [Mass/Vol] 10.8 g/dL Low 12.0 - 16.[address] [facility] Comment on above: Performed By: #### 2 69714 ####[place] [address] Lymph # 1.69 x10EE3/UL Normal 0.80 - 2.80 [facility] Comment on above: Performed By: #### 2 11218 ####[place] [address] Lymphocytes/100 WBC (Bld) 25.1 % Normal 20.0 - 45.[address] [facility] Comment on above: Performed By: #### 2 39709 ####[facility],[address] [place] [address] MANUAL DIFF N/A Normal [facility] Comment on above: Performed By: #### 2 79698 ####[facility],[address] [place] [address] MCH (RBC) [Entitic mass] 31 pg Normal 27 - [address] [facility] Comment on above: Performed By: #### 2 28873 ####[facility],[address] [place] [address] MCHC 33 X10 3 Normal 32 - [address] [facility] Comment on above: Performed By: #### 2 32103 ####[place] [address] MCV (RBC) [Entitic vol] 92 fL Normal 80 - [address] [facility] Comment on above: Performed By: #### 2 18695 ####[facility],[address] [place] [address] Doddridge # 0.93 x10EE3/UL Normal 0.20 - 1.00 [facility] Comment on above: Performed By: #### 2 20032 ####[facility],[address] [place] [address] MONOS % 13.8 % High 0.0 - 10.[address] [facility] Comment on above: Performed By: #### 2 15359 ####[facility],[address] [place] [address] Morphology Dandy (Bld) [Interp] N/A Normal [facility] Comment on above: Performed By: #### 2 10881 ####[place] [address] Neut # 3.99 x10EE3/UL Normal 1.50 - 7.10 [facility] Comment on above: Performed By: #### 2 75000 ####[place] [address] Neutrophils/100 WBC (Bld) 59.3 % Normal 46.0 - 76.[address] [facility] Comment on above: Performed By: #### 2 46030 ####[facility],[address] [place] [address] 57794 PLATELET 303 x10EE3/UL Normal 150 - 450 [facility] Comment on above: Performed By: #### 2 62943 ####[facility],[address] [place] [address] 92543 Platelet mean volume (Bld) [Entitic vol] 7.6 fL Normal 6.6 - 10.5 [facility] Comment on above: Result Comment: AUTO MATED DIFFERENTIAL Performed By: #### 2 26990 ####[facility],[address] [place] [address] 15025 RBC 3.54 x 10EE6/UL Low 4.10 - 5.30 [facility] Comment on above: Performed By: #### 2 85148 ####[facility],[address] [place] [address] 19641 WBC 6.7 x 10EE3/UL Normal 4.5 - 10.8 [facility] Comment on above: Performed By: #### 2 73207 ####[facility],[address] [place] [address] 29058 CMP with eGFR - DAILYon 09-24 AGE 69 years Normal [facility] Comment on above: Performed By: #### 2 48202 ####[facility],[address] [place] [address] 06030 Albumin [Mass/Vol] 2.5 g/dL Low 3.4 - 5.0 [facility] Comment on above: Performed By: #### 2 12403 ####[facility],[address] [place] [address] 24912 Albumin/Globulin [Mass ratio] 0.7 {ratio} Low 0.9 - 1.[address] [facility] Comment on above: Performed By: #### 2 98853 ####[facility],[address] [place] [address] 13457 ALK PHOS 103 U/L Normal 46 - [address] [facility] Comment on above: Performed By: #### 2 97436 ####[facility],[address] [place] [address] 99336 ALT [Catalytic activity/Vol] 58 U/L Normal 16 - [address] [facility] Comment on above: Performed By: #### 2 02566 ####[facility],[address] [place] [address] 27223 Anion gap [Moles/Vol] 13 mmol/L Normal 10 - 20 [facility] Comment on above: Performed By: #### 2 32486 ####[facility],[address] [place] [address] 93562 AST [Catalytic activity/Vol] 34 U/L Normal 13 - [address] [facility] Comment on above: Performed By: #### 2 23099 ####[facility],[address] [place] [address] 82386 B/C RATIO 18 ratio Normal 0 - [address] [facility] Comment on above: Performed By: #### 2 55129 ####[facility],[address] [place] [address] 31473 Bilirubin [Mass/Vol] 0.6 mg/dL Normal 0.2 - 1.[address] [facility] Comment on above: Performed By: #### 2 34169 ####[facility],[address] [place] [address] 84298 Calcium [Mass/Vol] 8.6 mg/dL Normal 8.5 - 10.1 [facility] Comment on above: Performed By: #### 2 89365 ####[facility],[address] [place] [address] 36090 Chloride [Moles/Vol] 103 mmol/L Normal 98 - [address] [facility] Comment on above: Performed By: #### 2 75029 ####[facility],[address] [place], [place] [address] CMP with eGFR - DAILY Normal [facility] Comment on above: Result Comment: COMP REHENSIVE METABOLIC PANEL Performed By: #### 2 03588 ####[facility],[address] [place], [place] [address] CO2 [Moles/Vol] 27.4 mmol/L Normal 21.0 - 32.0 [facility] Comment on above: Performed By: #### 2 58273 ####[facility],[address] [place] [address] Creatinine [Mass/Vol] 0.84 mg/dL Normal 0.55 - 1.02 [facility] Comment on above: Performed By: #### 2 74285 ####[facility],[address] [place] [address] GFR/1.73 sq M.predicted among non-blacks MDRD (S/P/Bld) [Vol rate/Area] mL/min/{1.73_m2} Normal 60 - [address] [facility] Comment on above: Performed By: #### 2 07473 ####[facility],[address] [place] [address] Result Comment: ACCO RDING TO THE NATIONAL KIDNEY DISEASE EDUCATION PROGRAM(NKDE), A NORMAL eGFRIS A VALUE GREATER THAN OR EQUAL TO 60 ML/MIN/1.73 SQ METERS.CHRONIC KIDNEY DISEASE: <60mL/MIN/1.73 SQ METERSKIDNEY FAILURE: <15mL/MIN/1.73 SQ METERS Globulin (S) [Mass/Vol] 3.4 g/dL Normal 1.5 - 3.[address] [facility] Comment on above: Performed By: #### 2 89651 ####[facility],[address] [place], [place] [phone] Glucose [Mass/Vol] 93 mg/dL Normal 74 - 106 [facility] Comment on above: Performed By: #### 2 28643 ####[facility],[address] [place], [place] [phone] Potassium [Moles/Vol] 2.9 mmol/L Critically low 3.5 - 5.[address] [facility] Comment on above: Result Comment: { CA LLED TO MED SURG AT 0738{ READ BACK BY KS TO CWB Performed By: #### 2 03511 ####[facility],[address] [place] [address] Protein [Mass/Vol] 5.9 g/dL Low 6.4 - 8.2 [facility] Comment on above: Performed By: #### 2 18526 ####[facility],[address] [place] [address] Sodium [Moles/Vol] 140 mmol/L Normal 136 - 145 [facility] Comment on above: Performed By: #### 2 51521 ####[place] [address] Urea nitrogen [Mass/Vol] 15 mg/dL Normal 7 - [address] [facility] Comment on above: Performed By: #### 2 31438 ####[facility],[address] [place] [address] CV ECHO COMPLETEon CV ECHO COMPLETE Normal [facility] CBC + DIFFon 10-21-2024 Baso # 0.02 x10EE3/UL Normal 0.00 - 0.10 [facility] Comment on above: Performed By: #### 2 36405 ####[facility],[address] [place], [place] [phone] Basophils/100 WBC (Bld) 0.3 % Normal 0.0 - 2.[address] [facility] Comment on above: Performed By: #### 2 77567 ####[place] [address] CBC + DIFF Normal [facility] Comment on above: Result Comment: CBC- COMPLETE BLOOD COUNT Performed By: #### 2 45418 ####[facility],[address] [place] [address] EO # 0.09 x10EE3/UL Normal 0.00 - 0.50 [facility] Comment on above: Performed By: #### 2 88100 ####[facility],[address] [place] [address] 97912 Eosinophils/100 WBC (Bld) 1.3 % Normal 0.0 - 7.[address] [facility] Comment on above: Performed By: #### 2 79865 ####[facility],[address] [place] [address] Erythrocyte distribution width (RBC) [Ratio] 14.3 % Normal 12.0 - 15.[address] [facility] Comment on above: Performed By: #### 2 82584 ####[facility],[address] [place] [address] Hematocrit (Bld) [Volume fraction] 32.6 % Low 34.0 - 46.[address] [facility] Comment on above: Performed By: #### 2 65718 ####[facility],[address] [place] [address] Hemoglobin (Bld) [Mass/Vol] 10.9 g/dL Low 12.0 - 16.[address] [facility] Comment on above: Performed By: #### 2 69019 ####[facility],[address] [place] [address] 47588 Lymph # 1.38 x10EE3/UL Normal 0.80 - 2.80 [facility] Comment on above: Performed By: #### 2 32220 ####[facility],[address] [place] [address] 90071 Lymphocytes/100 WBC (Bld) 19.4 % Low 20.0 - 45.[address] [facility] Comment on above: Performed By: #### 2 21706 ####[facility],[address] [place], [place] [phone] MANUAL DIFF N/A Normal [facility] Comment on above: Performed By: #### 2 40517 ####[facility],[address] [place] [address] MCH (RBC) [Entitic mass] 31 pg Normal 27 - [address] [facility] Comment on above: Performed By: #### 2 40242 ####[facility],[address] [place] [address] MCHC 34 X10 3 Normal 32 - [address] [facility] Comment on above: Performed By: #### 2 76693 ####[facility],[address] [place] [address] MCV (RBC) [Entitic vol] 92 fL Normal 80 - [address] [facility] Comment on above: Performed By: #### 2 52977 ####[facility],[address] [place] [address] Doddridge # 0.76 x10EE3/UL Normal 0.20 - 1.00 [facility] Comment on above: Performed By: #### 2 64412 ####[facility],[address] [place] [address] MONOS % 10.7 % High 0.0 - 10.[address] [facility] Comment on above: Performed By: #### 2 89807 ####[facility],[address] [place] [address] Morphology Dandy (Bld) [Interp] N/A Normal [facility] Comment on above: Performed By: #### 2 63570 ####[facility],[address] [place] [address] Neut # 4.87 x10EE3/UL Normal 1.50 - 7.10 [facility] Comment on above: Performed By: #### 2 25320 ####[facility],[address] [place] [address] Neutrophils/100 WBC (Bld) 68.4 % Normal 46.0 - 76.[address] [facility] Comment on above: Performed By: #### 2 32215 ####[facility],[address] [place] [address] 09557 PLATELET 301 x10EE3/UL Normal 150 - 450 [facility] Comment on above: Performed By: #### 2 34754 ####[facility],[address] [place] [address] 30036 Platelet mean volume (Bld) [Entitic vol] 7.2 fL Normal 6.6 - 10.5 [facility] Comment on above: Result Comment: AUTO MATED DIFFERENTIAL Performed By: #### 2 50372 ####[facility],[address] [place] [address] 44128 RBC 3.56 x 10EE6/UL Low 4.10 - 5.30 [facility] Comment on above: Performed By: #### 2 55271 ####[facility],[address] [place] [address] 41915 WBC 7.1 x 10EE3/UL Normal 4.5 - 10.8 [facility] Comment on above: Performed By: #### 2 40012 ####[facility],[address] [place] [address] 67890 CHEST 1 VIEWon 10-21-2024 CHEST 1 VIEW Normal [facility] CMP with eGFRon 10-21-2024 AGE 69 years Normal [facility] Comment on above: Performed By: #### 2 72699 ####[facility],[address] [place] [address] 94008 Albumin [Mass/Vol] 2.7 g/dL Low 3.4 - 5.0 [facility] Comment on above: Performed By: #### 2 63446 ####[facility],[address] [place] [address] 46145 Albumin/Globulin [Mass ratio] 0.8 {ratio} Low 0.9 - 1.[address] [facility] Comment on above: Performed By: #### 2 16285 ####[facility],[address] [place] [address] 52192 ALK PHOS 111 U/L Normal 46 - [address] [facility] Comment on above: Performed By: #### 2 37675 ####[facility],[address] [place] [address] 19659 ALT [Catalytic activity/Vol] 65 U/L High 16 - [address] [facility] Comment on above: Performed By: #### 2 06951 ####[facility],[address] [place] [address] Anion gap [Moles/Vol] 14 mmol/L Normal 10 - 20 [facility] Comment on above: Performed By: #### 2 66626 ####[facility],[address] [place] [address] AST [Catalytic activity/Vol] 38 U/L Normal 13 - [address] [facility] Comment on above: Performed By: #### 2 89691 ####[facility],[address] [place] [address] B/C RATIO 15 ratio Normal 0 - [address] [facility] Comment on above: Performed By: #### 2 37345 ####[facility],[address] [place] [address] 21112 Bilirubin [Mass/Vol] 0.7 mg/dL Normal 0.2 - 1.[address] [facility] Comment on above: Performed By: #### 2 75884 ####[facility],[address] [place] [address] 27251 Calcium [Mass/Vol] 8.5 mg/dL Normal 8.5 - 10.1 [facility] Comment on above: Performed By: #### 2 64029 ####[facility],[address] [place] [address] 57995 Chloride [Moles/Vol] 104 mmol/L Normal 98 - [address] [facility] Comment on above: Performed By: #### 2 98735 ####[facility],[address] [place] [address] 24600 CMP with eGFR Normal [facility] Comment on above: Result Comment: COMP REHENSIVE METABOLIC PANEL Performed By: #### 2 10177 ####[facility],[address] [place] [address] 52033 CO2 [Moles/Vol] 27.0 mmol/L Normal 21.0 - 32.0 [facility] Comment on above: Performed By: #### 2 69891 ####[facility],[address] [place] [address] 09750 Creatinine [Mass/Vol] 0.78 mg/dL Normal 0.55 - 1.02 [facility] Comment on above: Performed By: #### 2 39462 ####[facility],[address] [place] [address] GFR/1.73 sq M.predicted among non-blacks MDRD (S/P/Bld) [Vol rate/Area] mL/min/{1.73_m2} Normal 60 - [address] [facility] Comment on above: Performed By: #### 2 56623 ####[facility],[address] [place], [place] [phone] Result Comment: ACCO RDING TO THE NATIONAL KIDNEY DISEASE EDUCATION PROGRAM(NKDE), A NORMAL eGFRIS A VALUE GREATER THAN OR EQUAL TO 60 ML/MIN/1.73 SQ METERS.CHRONIC KIDNEY DISEASE: <60mL/MIN/1.73 SQ METERSKIDNEY FAILURE: <15mL/MIN/1.73 SQ METERSTHIS TEST SHOULD ONLY BE USED FOR PATIENTS 18 YEARS OF AGE AND OLDER. Globulin (S) [Mass/Vol] 3.5 g/dL Normal 1.5 - 3.[address] [facility] Comment on above: Performed By: #### 2 12961 ####[facility],[address] [place] [address] 45379 Glucose [Mass/Vol] 92 mg/dL Normal 74 - 106 [facility] Comment on above: Performed By: #### 2 30708 ####[facility],[address] [place] [address] 03803 Potassium [Moles/Vol] 3.5 mmol/L Normal 3.5 - 5.1 [facility] Comment on above: Performed By: #### 2 18440 ####[facility],[address] [place] [address] 74044 Protein [Mass/Vol] 6.2 g/dL Low 6.4 - 8.2 [facility] Comment on above: Performed By: #### 2 14858 ####[facility],[address] [place] [address] Sodium [Moles/Vol] 141 mmol/L Normal 136 - 145 [facility] Comment on above: Performed By: #### 2 67978 ####[facility],[address] [place] [address] Urea nitrogen [Mass/Vol] 12 mg/dL Normal 7 - [address] [facility] Comment on above: Performed By: #### 2 76209 ####[facility],[address] [place], [place] [phone] CORONAVIRUS (SARS) ANTIGEN T ESTon 10-21-2024 EXTERNAL QC DONE? YES Normal [facility] Comment on above: Performed By: #### 2 24421 ####[facility],[address] [place] [address] INTERNAL CONTROL PASS Normal [facility] Comment on above: Performed By: #### 2 04647 ####[facility],[address] [place], [place] [phone] SARS ANTIGEN Negative Normal NORMAL: NEGATIVE [facility] Comment on above: Performed By: #### 2 89158 ####[facility],[address] [place] [address] 54788 SEND TO ? NO Normal [facility] Comment on above: Result Comment: SARS -CoV-2THIS TEST IS BEING USED UNDER THE FDA EUA PROCEDURE. THIS ASSAY HAS BEENVALIDATED AT [facility] FOR USE WITH NASAL AND NASOPHARYNGEAL SWABSPECIMENS.INTERPRETIVE DATATEST RESULTS SHOULD ALWAYS BE CONSIDERED IN THE CONTEXT OF CLINICALOBSERVATIONS AND EPIDEMIOLOGICAL DATA IN MAKING FINAL DIAGNOSIS AND PATIENTMANAGEMENT DECISIONS. PATIENT MANAGEMENT SHOULD FOLLOW CURRENT CDC GUIDELINES.THE JAILENE SARS ANTIGEN NEO DOES NOT DIFFERENTIATE BETWEEN SARS-CoV & SARS-CoV-2.A POSITIVE TEST RESULT INDICATES THE PRESENCE OF SARS-CoV-2 NUCLEOCAPSID PROTEINANTIGEN, AND THE PATIENT IS INFECTED WITH THE VIRUS AND PRESUMED TO BECONTAGIOUS.A NEGATIVE TEST RESULT FOR THIS TEST MEANS THAT SARS-CoV-2 NUCLEOCAPSID PROTEINANTIGEN WAS NOT PRESENT IN THE SPECIMEN ABOVE THE LIMIT OF DETECTION. HOWEVER, ANEGATIVE RESULT DOES NOT RULE OUT COVID-19 AND SHOULD NOT BE USED THE SOLEBASIS FOR TREATMENT OR PATIENT MANAGEMENT DECISIONS. A NEGATIVE RESULT DOES NOTEXCLUDE THE POSSIBILITY OF COVID-19. NEGATIVE RESULTS, FROM PATIENTS WITHSYMPTOM ONSET BEYOND FIVE DAYS, SHOULD BE TREATED PRESUMPTIVE ANDCONFIRMATION WITH A MOLECULAR ASSAY, IF NECESSARY, FOR PATIENT MANAGEMENT, MAYBE PERFORMED.WHEN DIAGNOSTIC TESTING IS NEGATIVE, THE POSSIBLILTY OF A FALSE NEGATIVE RESULTSHOULD BE CONSIDERED IN THE CONTEXT OF A PATIENT'S RECENT EXPOSURES AND THEPRESENCE OF CLINICAL SIGNS AND SYMPTOMS CONSISTENT WITH COVID-19. THEPOSSIBILITY OF A FALSE NEGATIVE RESULT SHOULD ESPECIALLY BE CONSIDERED IF THEPATIENT'S RECENT EXPOSURES OR CLINICAL PRESENTATION INDICATE THAT COVID-19 ISLIKELY, AND DIAGNOSTIC TESTS FOR OTHER CAUSES OF ILLNESS (e.g., OTHERRESPIRATORY ILLNESS) ARE NEGATIVE. IF COVID-19 IS STILL SUSPECTED BASED ONEXPOSURE HISTORY TOGETHER WITH OTHER CLINICAL FINDINGS, RE-TESTING SHOULD BECONSIDERED BY HEALTHCARE PROVIDERS IN CONSULTATION WITH PUBLIC [employer]ITIES. Performed By: #### 2 38183 ####[facility],[address] [place], [place] [phone] ED MED ADMINISTRATION DETAIL on 10-21-2024 ED MED ADMINISTRATION DETAIL Normal [facility] ED NURSES CLINICAL NOTEon ED NURSES CLINICAL NOTE Normal [facility] ED ORDER SHEET (CPOE ONLY)on 10-21-2024 ED ORDER SHEET (CPOE ONLY) Normal [facility] ED PHYSICIAN CLINICAL REPORT on 10-21-2024 ED PHYSICIAN CLINICAL REPORT Normal [facility] ED PHYSICIAN DISCHARGE REPOR Ton 10-21-2024 ED PHYSICIAN DISCHARGE REPORT Normal [facility] ED SUPER BILLon 10-21-2024 ED SUPER BILL Normal [facility] ED VISIT SUMMARYon 4 ED VISIT SUMMARY Normal [facility] ED VITALS FLOW SHEETon 10-21 ED VITALS FLOW SHEET Normal [facility] INFLUENZA VIRUS RAPID A/Bon 10-21-2024 INFLUENZA VIRUS RAPID A/B Normal [facility] Comment on above: Performed By: #### 2 [id number] ####[facility],[address] [place] [address] NT-proBNPon 10-21-2024 Natriuretic peptide B (Bld) [Mass/Vol] 3719 pg/mL High 0 - [address] [facility] Comment on above: Performed By: #### 2 19602 ####[facility],[address] [place], [place] [id number] TROPONINon 10-21-2024 HS TROPONIN 20.1 pg/mL Normal 0.0 - 51.[address] [facility] Comment on above: Performed By: #### 2 92318 ####[facility],[address] [place], [place] [id number] ED MED ADMINISTRATION DETAIL on 10-10-2024 ED MED ADMINISTRATION DETAIL Normal [facility] ED NURSES CLINICAL NOTEon ED NURSES CLINICAL NOTE Normal [facility] ED ORDER SHEET (CPOE ONLY)on 10-10-2024 ED ORDER SHEET (CPOE ONLY) Normal [facility] ED PHYSICIAN CLINICAL REPORT on 10-10-2024 ED PHYSICIAN CLINICAL REPORT Normal [facility] ED PHYSICIAN DISCHARGE REPOR Ton 10-10-2024 ED PHYSICIAN DISCHARGE REPORT Normal [facility] ED SUPER BILLon 10-10-2024 ED SUPER BILL Normal [facility] ED VISIT SUMMARYon 4 ED VISIT SUMMARY Normal [facility] ED VITALS FLOW SHEETon 10-10 ED VITALS FLOW SHEET Normal [facility] CT BRAIN W/O CONTRASTon 12-1 8-2024 CT BRAIN W/O CONTRAST Normal [facility] CT CERVICAL W/O CONTRASTon 1 12-10-2023 CT CERVICAL W/O CONTRAST Normal [facility] CT FACIAL BONES W/O CONTRAST on 10-09-2024 CT FACIAL BONES W/O CONTRAST Normal [facility] BMP with eGFRon 10-06-2024 AGE 69 years Normal [facility] Comment on above: Performed By: #### 2 47476 ####[facility],[address] [place] [address] Anion gap [Moles/Vol] 13 mmol/L Normal 10 - 20 [facility] Comment on above: Performed By: #### 2 42955 ####[facility],[address] [place], [place] [id number] BMP with eGFR Normal [facility] Comment on above: Result Comment: BASI C METABOLIC PANEL Performed By: #### 2 19743 ####[facility],[address] [place], [place] [phone] Calcium [Mass/Vol] 8.5 mg/dL Normal 8.5 - 10.1 [facility] Comment on above: Performed By: #### 2 03242 ####[facility],[address] [place], [place] [phone] Chloride [Moles/Vol] 101 mmol/L Normal 98 - [address] [facility] Comment on above: Performed By: #### 2 26041 ####[facility],[address] [place] [address] 92568 CO2 [Moles/Vol] 27.0 mmol/L Normal 21.0 - 32.0 [facility] Comment on above: Performed By: #### 2 13031 ####[facility],[address] [place] [address] 88215 Creatinine [Mass/Vol] 1.11 mg/dL High 0.55 - 1.02 [facility] Comment on above: Performed By: #### 2 86047 ####[facility],[address] [place] [address] 82983 eGFR 49 ML/MINUTE Low 60 - 999 [facility] Comment on above: Performed By: #### 2 89085 ####[facility],[address] [place] [address] 39820 eGFR(AA) 59 ML/MINUTE Low 60 - 999 [facility] Comment on above: Result Comment: ACCO RDING TO THE NATIONAL KIDNEY DISEASE EDUCATION PROGRAM(NKDE), A NORMAL eGFRIS A VALUE GREATER THAN OR EQUAL TO 60 ML/MIN/1.73 SQ METERS.CHRONIC KIDNEY DISEASE: <60mL/MIN/1.73 SQ METERSKIDNEY FAILURE: <15mL/MIN/1.73 SQ METERSTHIS TEST SHOULD ONLY BE USED FOR PATIENTS 18 YEARS OF AGE AND OLDER. Performed By: #### 2 40482 ####[facility],[address] [place] [address] 74782 Glucose [Mass/Vol] 197 mg/dL High 74 - 106 [facility] Comment on above: Performed By: #### 2 96748 ####[facility],[address] [place] [address] 74715 Potassium [Moles/Vol] 3.7 mmol/L Normal 3.5 - 5.1 [facility] Comment on above: Performed By: #### 2 11986 ####[facility],[address] [place] [address] 54767 Sodium [Moles/Vol] 137 mmol/L Normal 136 - 145 [facility] Comment on above: Performed By: #### 2 36927 ####[facility],[address] [place] [address] 44702 Urea nitrogen [Mass/Vol] 39 mg/dL High 7 - [address] [facility] Comment on above: Performed By: #### 2 65951 ####[facility],[address] [place] [address] 83135 C-REACTIVE PROTEINon 12-14-2 024 CRP [Mass/Vol] mg/L Normal 0.00 - 0.90 [facility] Comment on above: Performed By: #### 2 83543 ####[facility],[address] [place] [address] CBC + DIFFon 10-05-2024 Baso # 0.02 x10EE3/UL Normal 0.00 - 0.10 [facility] Comment on above: Performed By: #### 2 38941 ####[facility],[address] [place] [address] Basophils/100 WBC (Bld) 0.2 % Normal 0.0 - 2.[address] [facility] Comment on above: Performed By: #### 2 44064 ####[facility],[address] [place] [address] CBC + DIFF Normal [facility] Comment on above: Result Comment: CBC- COMPLETE BLOOD COUNT Performed By: #### 2 36751 ####[facility],[address] [place] [address] EO # 0.04 x10EE3/UL Normal 0.00 - 0.50 [facility] Comment on above: Performed By: #### 2 54408 ####[facility],[address] [place] [address] Eosinophils/100 WBC (Bld) 0.3 % Normal 0.0 - 7.[address] [facility] Comment on above: Performed By: #### 2 02451 ####[facility],[address] [place] [address] Erythrocyte distribution width (RBC) [Ratio] 14.3 % Normal 12.0 - 15.[address] [facility] Comment on above: Performed By: #### 2 26211 ####[facility],[address] [place] [address] Hematocrit (Bld) [Volume fraction] 37.0 % Normal 34.0 - 46.[address] [facility] Comment on above: Performed By: #### 2 27728 ####[facility],[address] [place] [address] Hemoglobin (Bld) [Mass/Vol] 12.0 g/dL Normal 12.0 - 16.[address] [facility] Comment on above: Performed By: #### 2 71687 ####[facility],[address] [place] [address] Lymph # 0.94 x10EE3/UL Normal 0.80 - 2.80 [facility] Comment on above: Performed By: #### 2 49417 ####[facility],[address] [place] [address] Lymphocytes/100 WBC (Bld) 8.5 % Low 20.0 - 45.[address] [facility] Comment on above: Performed By: #### 2 55575 ####[facility],[address] [place] [address] MANUAL DIFF N/A Normal [facility] Comment on above: Performed By: #### 2 35673 ####[facility],[address] [place], [place] [phone] MCH (RBC) [Entitic mass] 30 pg Normal 27 - [address] [facility] Comment on above: Performed By: #### 2 69751 ####[facility],[address] [place], [place] [phone] MCHC 33 X10 3 Normal 32 - [address] [facility] Comment on above: Performed By: #### 2 53311 ####[facility],[address] [place], [place] [phone] MCV (RBC) [Entitic vol] 92 fL Normal 80 - [address] [facility] Comment on above: Performed By: #### 2 83816 ####[facility],[address] [place] [address] Doddridge # 0.33 x10EE3/UL Normal 0.20 - 1.00 [facility] Comment on above: Performed By: #### 2 46272 ####[facility],[address] [place] [address] 54792 MONOS % 3.0 % Normal 0.0 - 10.[address] [facility] Comment on above: Performed By: #### 2 94623 ####[facility],[address] [place] [address] 48862 Morphology Dandy (Bld) [Interp] N/A Normal [facility] Comment on above: Performed By: #### 2 94677 ####[facility],[address] [place] [address] 36316 Neut # 9.76 x10EE3/UL High 1.50 - 7.10 [facility] Comment on above: Performed By: #### 2 71692 ####[facility],[address] [place] [address] 08523 Neutrophils/100 WBC (Bld) 88.0 % High 46.0 - 76.[address] [facility] Comment on above: Performed By: #### 2 68150 ####[facility],[address] [place] [address] 25062 PLATELET 402 x10EE3/UL Normal 150 - 450 [facility] Comment on above: Performed By: #### 2 57220 ####[facility],[address] [place] [address] 70766 Platelet mean volume (Bld) [Entitic vol] 7.2 fL Normal 6.6 - 10.5 [facility] Comment on above: Result Comment: AUTO MATED DIFFERENTIAL Performed By: #### 2 84549 ####[facility],[address] [place] [address] 77122 RBC 4.00 x 10EE6/UL Low 4.10 - 5.30 [facility] Comment on above: Performed By: #### 2 39612 ####[facility],[address] [place] [address] 32428 WBC 11.1 x 10EE3/UL High 4.5 - 10.8 [facility] Comment on above: Performed By: #### 2 23015 ####[facility],[address] [place] [address] 59087 CHEST 1 VIEWon 10-05-2024 CHEST 1 VIEW Normal [facility] CMP with eGFRon 10-05-2024 AGE 69 years Normal [facility] Comment on above: Performed By: #### 2 49670 ####[facility],[address] [place] [address] 58292 Albumin [Mass/Vol] 2.4 g/dL Low 3.4 - 5.0 [facility] Comment on above: Performed By: #### 2 70735 ####[facility],[address] [place] [address] 95186 Albumin/Globulin [Mass ratio] 0.7 {ratio} Low 0.9 - 1.[address] [facility] Comment on above: Performed By: #### 2 71572 ####[facility],[address] [place] [address] 84657 ALK PHOS 80 U/L Normal 46 - [address] [facility] Comment on above: Performed By: #### 2 19470 ####[facility],[address] [place] [address] 76183 ALT [Catalytic activity/Vol] 44 U/L Normal 16 - [address] [facility] Comment on above: Performed By: #### 2 07141 ####[facility],[address] [place] [address] 76158 Anion gap [Moles/Vol] 10 mmol/L Normal 10 - 20 [facility] Comment on above: Performed By: #### 2 30739 ####[facility],[address] [place] [address] 34095 AST [Catalytic activity/Vol] 38 U/L Normal 13 - [address] [facility] Comment on above: Performed By: #### 2 28716 ####[facility],[address] [place] [address] 03737 B/C RATIO 29 ratio Normal 0 - [address] [facility] Comment on above: Performed By: #### 2 07612 ####[facility],[address] [place] [address] 72619 Bilirubin [Mass/Vol] 0.3 mg/dL Normal 0.2 - 1.[address] [facility] Comment on above: Performed By: #### 2 37877 ####[facility],[address] [place] [address] Calcium [Mass/Vol] 8.4 mg/dL Low 8.5 - 10.1 [facility] Comment on above: Performed By: #### 2 96781 ####[facility],[address] [place] [address] Chloride [Moles/Vol] 102 mmol/L Normal 98 - [address] [facility] Comment on above: Performed By: #### 2 77377 ####[facility],[address] [place] [address] CMP with eGFR Normal [facility] Comment on above: Result Comment: COMP REHENSIVE METABOLIC PANEL Performed By: #### 2 17383 ####[facility],[address] [place] [address] CO2 [Moles/Vol] 29.0 mmol/L Normal 21.0 - 32.0 [facility] Comment on above: Performed By: #### 2 83356 ####[facility],[address] [place], [place] [phone] Creatinine [Mass/Vol] 1.22 mg/dL High 0.55 - 1.02 [facility] Comment on above: Performed By: #### 2 04995 ####[facility],[address] [place] [address] 62748 eGFR 44 ML/MINUTE Low 60 - 999 [facility] Comment on above: Performed By: #### 2 84543 ####[facility],[address],[place] [address] eGFR(AA) 53 ML/MINUTE Low 60 - 999 [facility] Comment on above: Result Comment: ACCO RDING TO THE NATIONAL KIDNEY DISEASE EDUCATION PROGRAM(NKDE), A NORMAL eGFRIS A VALUE GREATER THAN OR EQUAL TO 60 ML/MIN/1.73 SQ METERS.CHRONIC KIDNEY DISEASE: <60mL/MIN/1.73 SQ METERSKIDNEY FAILURE: <15mL/MIN/1.73 SQ METERSTHIS TEST SHOULD ONLY BE USED FOR PATIENTS 18 YEARS OF AGE AND OLDER. Performed By: #### 2 34885 ####[facility],[address] [place] [address] 78769 Globulin (S) [Mass/Vol] 3.5 g/dL Normal 1.5 - 3.[address] [facility] Comment on above: Performed By: #### 2 97857 ####[facility],[address] [place] [address] 93813 Glucose [Mass/Vol] 154 mg/dL High 74 - 106 [facility] Comment on above: Performed By: #### 2 19014 ####[facility],[address] [place] [address] 47851 Potassium [Moles/Vol] 3.7 mmol/L Normal 3.5 - 5.1 [facility] Comment on above: Performed By: #### 2 50578 ####[facility],[address] [place] [address] 25875 Protein [Mass/Vol] 5.9 g/dL Low 6.4 - 8.2 [facility] Comment on above: Performed By: #### 2 66800 ####[facility],[address] [place] [address] 42547 Sodium [Moles/Vol] 137 mmol/L Normal 136 - 145 [facility] Comment on above: Performed By: #### 2 80755 ####[facility],[address] [place] [address] 22515 Urea nitrogen [Mass/Vol] 35 mg/dL High 7 - [address] [facility] Comment on above: Performed By: #### 2 73604 ####[facility],[address] [place] [address] 73943 BMP with eGFRon 10-04-2024 AGE 69 years Normal [facility] Comment on above: Performed By: #### 2 89842 ####[facility],[address] [place] [address] 98352 Anion gap [Moles/Vol] 9 mmol/L Low 10 - 20 [facility] Comment on above: Performed By: #### 2 05798 ####[facility],[address] [place] [address] 76372 BMP with eGFR Normal [facility] Comment on above: Result Comment: BASI C METABOLIC PANEL Performed By: #### 2 81269 ####[facility],[address] [place] [address] 64577 Calcium [Mass/Vol] 8.3 mg/dL Low 8.5 - 10.1 [facility] Comment on above: Performed By: #### 2 69146 ####[facility],[address] [place] [address] 98572 Chloride [Moles/Vol] 99 mmol/L Normal 98 - [address] [facility] Comment on above: Performed By: #### 2 02084 ####[facility],[address] [place] [address] 55642 CO2 [Moles/Vol] 32.2 mmol/L High 21.0 - 32.0 [facility] Comment on above: Performed By: #### 2 43635 ####[facility],[address] [place] [address] 50715 Creatinine [Mass/Vol] 0.97 mg/dL Normal 0.55 - 1.02 [facility] Comment on above: Performed By: #### 2 48434 ####[facility],[address] [place] [address] 45191 eGFR 57 ML/MINUTE Low 60 - 999 [facility] Comment on above: Performed By: #### 2 66800 ####[facility],[address] [place] [address] 78443 GFR/1.73 sq M.predicted among non-blacks MDRD (S/P/Bld) [Vol rate/Area] mL/min/{1.73_m2} Normal 60 - [address] [facility] Comment on above: Result Comment: ACCO RDING TO THE NATIONAL KIDNEY DISEASE EDUCATION PROGRAM(NKDE), A NORMAL eGFRIS A VALUE GREATER THAN OR EQUAL TO 60 ML/MIN/1.73 SQ METERS.CHRONIC KIDNEY DISEASE: <60mL/MIN/1.73 SQ METERSKIDNEY FAILURE: <15mL/MIN/1.73 SQ METERSTHIS TEST SHOULD ONLY BE USED FOR PATIENTS 18 YEARS OF AGE AND OLDER. Performed By: #### 2 32996 ####[facility],[address] [place] [address] 54797 Glucose [Mass/Vol] 159 mg/dL High 74 - 106 [facility] Comment on above: Performed By: #### 2 06290 ####[facility],[address] [place] [address] 80919 Potassium [Moles/Vol] 3.0 mmol/L Low 3.5 - 5.1 [facility] Comment on above: Performed By: #### 2 08618 ####[facility],[address] [place] [address] 22618 Sodium [Moles/Vol] 137 mmol/L Normal 136 - 145 [facility] Comment on above: Performed By: #### 2 84855 ####[facility],[address] [place] [address] 35360 Urea nitrogen [Mass/Vol] 21 mg/dL High 7 - [address] [facility] Comment on above: Performed By: #### 2 16845 ####[facility],[address] [place] [address] 62281 CBC + DIFFon 10-04-2024 Baso # 0.03 x10EE3/UL Normal 0.00 - 0.10 [facility] Comment on above: Performed By: #### 2 22762 ####[place] [address] Basophils/100 WBC (Bld) 0.3 % Normal 0.0 - 2.[address] [facility] Comment on above: Performed By: #### 2 68195 ####[place] [address] CBC + DIFF Normal [facility] Comment on above: Result Comment: CBC- COMPLETE BLOOD COUNT Performed By: #### 2 50474 ####[place] [address] EO # 0.04 x10EE3/UL Normal 0.00 - 0.50 [facility] Comment on above: Performed By: #### 2 31521 ####[place] [address] Eosinophils/100 WBC (Bld) 0.3 % Normal 0.0 - 7.[address] [facility] Comment on above: Performed By: #### 2 60550 ####[place] [address] Erythrocyte distribution width (RBC) [Ratio] 14.2 % Normal 12.0 - 15.[address] [facility] Comment on above: Performed By: #### 2 50288 ####[place] [address] Hematocrit (Bld) [Volume fraction] 36.6 % Normal 34.0 - 46.[address] [facility] Comment on above: Performed By: #### 2 73844 ####[place] [address] Hemoglobin (Bld) [Mass/Vol] 12.1 g/dL Normal 12.0 - 16.[address] [facility] Comment on above: Performed By: #### 2 71616 ####[address],[place] [address] Lymph # 0.61 x10EE3/UL Low 0.80 - 2.80 [facility] Comment on above: Performed By: #### 2 90601 ####[facility],[address] [place] [address] Lymphocytes/100 WBC (Bld) 4.9 % Low 20.0 - 45.[address] [facility] Comment on above: Performed By: #### 2 29651 ####[facility],[address] [place] [address] MANUAL DIFF N/A Normal [facility] Comment on above: Performed By: #### 2 25076 ####[facility],[address] [place] [address] MCH (RBC) [Entitic mass] 31 pg Normal 27 - [address] [facility] Comment on above: Performed By: #### 2 20405 ####[facility],[address] [place] [address] MCHC 33 X10 3 Normal 32 - [address] [facility] Comment on above: Performed By: #### 2 73481 ####[facility],[address] [place], [place] [phone] MCV (RBC) [Entitic vol] 92 fL Normal 80 - [address] [facility] Comment on above: Performed By: #### 2 35935 ####[facility],[address] [place] [address] Doddridge # 0.19 x10EE3/UL Low 0.20 - 1.00 [facility] Comment on above: Performed By: #### 2 50369 ####[facility],[address] [place] [address] MONOS % 1.5 % Normal 0.0 - 10.[address] [facility] Comment on above: Performed By: #### 2 88172 ####[facility],[address] [place], [place] [phone] Morphology Dandy (Bld) [Interp] N/A Normal [facility] Comment on above: Performed By: #### 2 67128 ####[facility],[address] [place] [address] 80940 Neut # 11.58 x10EE3/UL High 1.50 - 7.10 [facility] Comment on above: Performed By: #### 2 96224 ####[facility],[address] [place] [address] 26943 Neutrophils/100 WBC (Bld) 93.0 % High 46.0 - 76.[address] [facility] Comment on above: Performed By: #### 2 34963 ####[facility],[address] [place] [address] 97653 PLATELET 379 x10EE3/UL Normal 150 - 450 [facility] Comment on above: Performed By: #### 2 39794 ####[facility],[address] [place] [address] 49069 Platelet mean volume (Bld) [Entitic vol] 7.0 fL Normal 6.6 - 10.5 [facility] Comment on above: Result Comment: AUTO MATED DIFFERENTIAL Performed By: #### 2 73605 ####[facility],[address] [place] [address] 46075 RBC 3.98 x 10EE6/UL Low 4.10 - 5.30 [facility] Comment on above: Performed By: #### 2 63832 ####[facility],[address] [place] [address] 30701 WBC 12.5 x 10EE3/UL High 4.5 - 10.8 [facility] Comment on above: Performed By: #### 2 07181 ####[facility],[address] [place] [address] 08300 ED MED ADMINISTRATION DETAIL on 10-04-2024 ED MED ADMINISTRATION DETAIL Normal [facility] ED NURSES CLINICAL NOTEon ED NURSES CLINICAL NOTE Normal [facility] ED ORDER SHEET (CPOE ONLY)on 10-04-2024 ED ORDER SHEET (CPOE ONLY) Normal [facility] ED PHYSICIAN CLINICAL REPORT on 10-04-2024 ED PHYSICIAN CLINICAL REPORT Normal [facility] ED PHYSICIAN DISCHARGE REPOR Ton 10-04-2024 ED PHYSICIAN DISCHARGE REPORT Normal [facility] [facility] ED SUPER BILLon 10-04-2024 ED SUPER BILL Normal [facility] ED VISIT SUMMARYon ED VISIT SUMMARY Normal [facility] ED VITALS FLOW SHEETon 10-04 ED VITALS FLOW SHEET Normal [facility] CBC + DIFFon 10-03-2024 Baso # 0.06 x10EE3/UL Normal 0.00 - 0.10 [facility] Comment on above: Performed By: #### 2 14088 ####[facility],[address] [place] [address] 83167 Basophils/100 WBC (Bld) 0.5 % Normal 0.0 - 2.[address] [facility] Comment on above: Performed By: #### 2 68453 ####[facility],[address] [place] [address] 18765 CBC + DIFF Normal [facility] Comment on above: Result Comment: CBC- COMPLETE BLOOD COUNT Performed By: #### 2 63633 ####[facility],[address] [place] [address] 20099 EO # 0.29 x10EE3/UL Normal 0.00 - 0.50 [facility] Comment on above: Performed By: #### 2 56677 ####[facility],[address] [place] [address] 63582 Eosinophils/100 WBC (Bld) 2.1 % Normal 0.0 - 7.[address] [facility] Comment on above: Performed By: #### 2 65019 ####[facility],[address] [place] [address] 14007 Erythrocyte distribution width (RBC) [Ratio] 14.1 % Normal 12.0 - 15.[address] [facility] Comment on above: Performed By: #### 2 94676 ####[facility],[address] [place] [address] Hematocrit (Bld) [Volume fraction] 41.7 % Normal 34.0 - 46.[address] [facility] Comment on above: Performed By: #### 2 91760 ####[facility],[address] [place] [address] Hemoglobin (Bld) [Mass/Vol] 13.8 g/dL Normal 12.0 - 16.[address] [facility] Comment on above: Performed By: #### 2 05886 ####[facility],[address] [place] [address] Lymph # 5.71 x10EE3/UL High 0.80 - 2.80 [facility] Comment on above: Performed By: #### 2 89175 ####[facility],[address] [place] [address] Lymphocytes/100 WBC (Bld) 41.9 % Normal 20.0 - 45.[address] [facility] Comment on above: Performed By: #### 2 13312 ####[facility],[address] [place] [address] MANUAL DIFF N/A Normal [facility] Comment on above: Performed By: #### 2 85829 ####[facility],[address] [place], [place] [address] MCH (RBC) [Entitic mass] 30 pg Normal 27 - [address] [facility] Comment on above: Performed By: #### 2 99736 ####[facility],[address] [place], [place] [address] MCHC 33 X10 3 Normal 32 - [address] [facility] Comment on above: Performed By: #### 2 13485 ####[facility],[address] [place] [address] 43339 MCV (RBC) [Entitic vol] 91 fL Normal 80 - [address] [facility] Comment on above: Performed By: #### 2 14074 ####[facility],[address] [place] [address] 77247 Doddridge # 1.18 x10EE3/UL High 0.20 - 1.00 [facility] Comment on above: Performed By: #### 2 45798 ####[facility],[address] [place] [address] 05182 MONOS % 8.6 % Normal 0.0 - 10.[address] [facility] Comment on above: Performed By: #### 2 29230 ####[facility],[address] [place] [address] 58470 Morphology Dandy (Bld) [Interp] N/A Normal [facility] Comment on above: Performed By: #### 2 37302 ####[facility],[address] [place] [address] 03635 Neut # 6.39 x10EE3/UL Normal 1.50 - 7.10 [facility] Comment on above: Performed By: #### 2 77427 ####[facility],[address] [place] [address] 06536 Neutrophils/100 WBC (Bld) 46.9 % Normal 46.0 - 76.[address] [facility] Comment on above: Performed By: #### 2 09030 ####[facility],[address] [place] [address] 70150 PLATELET 475 x10EE3/UL High 150 - 450 [facility] Comment on above: Performed By: #### 2 09124 ####[facility],[address] [place] [address] 64498 Platelet mean volume (Bld) [Entitic vol] 7.4 fL Normal 6.6 - 10.5 [facility] Comment on above: Result Comment: AUTO MATED DIFFERENTIAL Performed By: #### 2 87606 ####[facility],[address] [place] [address] 13352 RBC 4.58 x 10EE6/UL Normal 4.10 - 5.30 [facility] Comment on above: Performed By: #### 2 10601 ####[facility],[address] [place] [address] 52152 WBC 13.6 x 10EE3/UL High 4.5 - 10.8 [facility] Comment on above: Performed By: #### 2 46601 ####[facility],[address] [place] [address] 44832 CHEST 1 VIEWon 10-03-2024 CHEST 1 VIEW Normal [facility] CMP with eGFRon 10-03-2024 AGE 69 years Normal [facility] Comment on above: Performed By: #### 2 67112 ####[facility],[address] [place] [address] 24763 Albumin [Mass/Vol] 3.1 g/dL Low 3.4 - 5.0 [facility] Comment on above: Performed By: #### 2 64819 ####[facility],[address] [place] [address] 90429 Albumin/Globulin [Mass ratio] 0.7 {ratio} Low 0.9 - 1.[address] [facility] Comment on above: Performed By: #### 2 86725 ####[facility],[address] [place] [address] 23807 ALK PHOS 124 U/L High 46 - [address] [facility] Comment on above: Performed By: #### 2 90621 ####[facility],[address] [place] [address] 45219 ALT [Catalytic activity/Vol] 90 U/L High 16 - [address] [facility] Comment on above: Performed By: #### 2 45698 ####[facility],[address] [place] [address] 83571 Anion gap [Moles/Vol] 13 mmol/L Normal 10 - 20 [facility] Comment on above: Performed By: #### 2 85920 ####[facility],[address] [place] [address] 52842 AST [Catalytic activity/Vol] 126 U/L High 13 - [address] [facility] Comment on above: Performed By: #### 2 19667 ####[facility],[address] [place] [address] 47155 B/C RATIO 15 ratio Normal 0 - [address] [facility] Comment on above: Performed By: #### 2 16558 ####[facility],[address] [place] [address] 78840 Bilirubin [Mass/Vol] 0.5 mg/dL Normal 0.2 - 1.[address] [facility] Comment on above: Performed By: #### 2 85531 ####[facility],[address] [place] [address] 86366 Calcium [Mass/Vol] 8.6 mg/dL Normal 8.5 - 10.1 [facility] Comment on above: Performed By: #### 2 92889 ####[facility],[address] [place] [address] 79735 Chloride [Moles/Vol] 97 mmol/L Low 98 - [address] [facility] Comment on above: Performed By: #### 2 15361 ####[facility],[address] [place] [address] 37837 CMP with eGFR Normal [facility] Comment on above: Result Comment: COMP REHENSIVE METABOLIC PANEL Performed By: #### 2 97820 ####[facility],[address] [place] [address] 00625 CO2 [Moles/Vol] 30.3 mmol/L Normal 21.0 - 32.0 [facility] Comment on above: Performed By: #### 2 59876 ####[facility],[address] [place] [address] 19995 Creatinine [Mass/Vol] 1.33 mg/dL High 0.55 - 1.02 [facility] Comment on above: Performed By: #### 2 37424 ####[facility],[address] [place] [address] 21128 eGFR 39 ML/MINUTE Low 60 - 999 [facility] Comment on above: Performed By: #### 2 91570 ####[facility],[address] [place] [address] 81571 eGFR(AA) 48 ML/MINUTE Low 60 - 999 [facility] Comment on above: Result Comment: ACCO RDING TO THE NATIONAL KIDNEY DISEASE EDUCATION PROGRAM(NKDE), A NORMAL eGFRIS A VALUE GREATER THAN OR EQUAL TO 60 ML/MIN/1.73 SQ METERS.CHRONIC KIDNEY DISEASE: <60mL/MIN/1.73 SQ METERSKIDNEY FAILURE: <15mL/MIN/1.73 SQ METERSTHIS TEST SHOULD ONLY BE USED FOR PATIENTS 18 YEARS OF AGE AND OLDER. Performed By: #### 2 52885 ####[address] [address] Globulin (S) [Mass/Vol] 4.7 g/dL High 1.5 - 3.[address] [facility] Comment on above: Performed By: #### 2 44089 ####[address] [address] Glucose [Mass/Vol] 271 mg/dL High 74 - 106 [facility] Comment on above: Performed By: #### 2 91369 ####[address] [address] Potassium [Moles/Vol] 3.1 mmol/L Low 3.5 - 5.1 [facility] Comment on above: Performed By: #### 2 83724 ####[address] [address] Protein [Mass/Vol] 7.8 g/dL Normal 6.4 - 8.2 [facility] Comment on above: Performed By: #### 2 92059 ####[facility],[address] [place] [address] 99270 Sodium [Moles/Vol] 137 mmol/L Normal 136 - 145 [facility] Comment on above: Performed By: #### 2 71131 ####[facility],[address] [place] [address] 81814 Urea nitrogen [Mass/Vol] 20 mg/dL High 7 - [address] [facility] Comment on above: Performed By: #### 2 64053 ####[facility],[address] [place] [address] 42148 MYCOon 09-08-2023 Mycoplasma IgG equiv Normal [facility] ([place] Comment on above: Result Comment: INTE RPRETATION OF MYCOPLASMA IgG BY EIA: Negative: No detectable M. pneumoniae IgG antibody. Positive: Mycoplasma pneumoniae IgG antibody Detected. Equivocal: Equivocal for IgG antibodies to Mycoplasma pneumoniae. Suggest repeat testing in 10-14 days. Performed By: #### P HOS, TROPHS, MG, CBC, ADIFF, ANEU, MYCO, CMP, CAION, GFR ####[address] [address] .Auto Diffon 09-06-2023 Basophil, Absolute 0.1 10 3/mcL Normal 0.0-0.3 [facility] ([place] Comment on above: Performed By: #### A DIFF, MG, ANEU, GFR, CBC, BMP ####[address] [address] Basophils/100 WBC (Bld) 1.5 % Normal 0.0-2.5 [facility] [place] Comment on above: Performed By: #### A DIFF, MG, ANEU, GFR, CBC, BMP ####[address] [address] Eosinophil, Absolute 0.4 10 3/mcL Normal 0.0-0.7 [facility] ([place] Comment on above: Performed By: #### A DIFF, MG, ANEU, GFR, CBC, BMP ####[address] [address] Eosinophils/100 WBC (Bld) 5.4 % Normal 0.0-6.0 [facility] [place] Comment on above: Performed By: #### A DIFF, MG, ANEU, GFR, CBC, BMP ####[address] [address] Lymphocyte, Absolute 2.0 10 3/mcL Normal 0.9-4.3 [facility] ([place] Comment on above: Performed By: #### A DIFF, MG, ANEU, GFR, CBC, BMP ####[address] [address] Lymphocytes/100 WBC (Bld) 27.7 % Normal 20.0-40.0 [facility] [place] Comment on above: Performed By: #### A DIFF, MG, ANEU, GFR, CBC, BMP ####[address] [address] Monocyte, Absolute 0.9 10 3/mcL Normal 0.1-1.4 [facility] ([place] Comment on above: Performed By: #### A DIFF, MG, ANEU, GFR, CBC, BMP ####[address] [address] Monocytes/100 WBC (Bld) 13.0 % Normal 2.0-13.0 [facility] [place] Comment on above: Performed By: #### A DIFF, MG, ANEU, GFR, CBC, BMP ####[address] [address] Neutrophils/100 WBC (Bld) 52.4 % Normal 50.0-75.0 [facility] [place] Comment on above: Performed By: #### A DIFF, MG, ANEU, GFR, CBC, BMP ####[address] [address] .GFRon 09-06-2023 GFR Non- >60 Normal [facility] ([place] Comment on above: Result Comment: GFR Population mean for , Non- Americans Ages 20-29 = 116 mL/min/1.73 sq.m. Ages 30-39 = 107 mL/min/1.73 sq.m. Ages 40-49 = 99 mL/min/1.73 sq.m. Ages 50-59 = 93 mL/min/1.73 sq.m. Ages 60-69 = 85 mL/min/1.73 sq.m. Ages 70+ = 75 mL/min/1.73 sq.m. Chronic Kidney Disease: Less than 60 mL/min/1.73 square meters End Stage Renal Disease: Less than 15 mL/min/1.73 square meters Performed By: #### A DIFF, MG, ANEU, GFR, CBC, BMP ####[address] [address] GFR >60 Normal [facility] ([place] Comment on above: Result Comment: GFR Population mean for , Non- Americans Ages 20-29 = 116 mL/min/1.73 sq.m. Ages 30-39 = 107 mL/min/1.73 sq.m. Ages 40-49 = 99 mL/min/1.73 sq.m. Ages 50-59 = 93 mL/min/1.73 sq.m. Ages 60-69 = 85 mL/min/1.73 sq.m. Ages 70+ = 75 mL/min/1.73 sq.m. Chronic Kidney Disease: Less than 60 mL/min/1.73 square meters End Stage Renal Disease: Less than 15 mL/min/1.73 square meters Performed By: #### A DIFF, MG, ANEU, GFR, CBC, BMP ####[place] [address] .NEUABSon 09-06-2023 Neutrophil, Absolute 3.7 10 3/mcL Normal 2.3-8.1 [facility] ([place] Comment on above: Performed By: #### A DIFF, MG, ANEU, GFR, CBC, BMP ####[address] [address] BMPon 09-06-2023 BUN/Creatinine Ratio 22.5 ratio High 10.0-22.0 [facility] ([place] Comment on above: Performed By: #### A DIFF, MG, ANEU, GFR, CBC, BMP ####[address] [address] Calcium [Mass/Vol] 8.7 mg/dL Normal 8.7-10.4 [facility] ([place]) Comment on above: Performed By: #### A DIFF, MG, ANEU, GFR, CBC, BMP ####[place] [address] Chloride [Moles/Vol] 101 mmol/L Normal 98-110 [facility] ([place] Comment on above: Performed By: #### A DIFF, MG, ANEU, GFR, CBC, BMP ####[place] [address] CO2 [Moles/Vol] 33 mmol/L High 22-32 [facility] ([place] Comment on above: Performed By: #### A DIFF, MG, ANEU, GFR, CBC, BMP ####[place] [address] Creatinine [Mass/Vol] 0.89 mg/dL Normal 0.50-1.20 [facility] ([place] Comment on above: Performed By: #### A DIFF, MG, ANEU, GFR, CBC, BMP ####[place] [address] Electrolyte Balance 3.0 mEq/L Low 4.0-15.0 [facility] Comment on above: Performed By: #### A DIFF, MG, ANEU, GFR, CBC, BMP ####[place] [address] Glucose [Mass/Vol] 100 mg/dL Normal 82-115 [facility] ([place] Comment on above: Performed By: #### A DIFF, MG, ANEU, GFR, CBC, BMP ####[place] [address] Potassium [Moles/Vol] 3.9 mmol/L Normal 3.5-5.0 [facility] ([place] Comment on above: Performed By: #### A DIFF, MG, ANEU, GFR, CBC, BMP ####[place] [address] Sodium [Moles/Vol] 137 mmol/L Normal 136-145 [facility] ([place] Comment on above: Performed By: #### A DIFF, MG, ANEU, GFR, CBC, BMP ####[place] [address] Urea nitrogen [Mass/Vol] 20.0 mg/dL Normal 8.0-22.0 [facility] [place] Comment on above: Performed By: #### A DIFF, MG, ANEU, GFR, CBC, BMP ####[place] [address] CBCon 09-06-2023 Erythrocyte distribution width (RBC) [Ratio] 13.7 % Normal 11.5-15.5 [facility] [place] Comment on above: Performed By: #### A DIFF, MG, ANEU, GFR, CBC, BMP ####[place] [address] Hematocrit (Bld) [Volume fraction] 39.7 % Normal 34.0-46.0 [facility] ([place] Comment on above: Performed By: #### A DIFF, MG, ANEU, GFR, CBC, BMP ####[place] [address] Hgb 13.5 G/dL Normal 12.0-16.0 [facility] [place] Comment on above: Performed By: #### A DIFF, MG, ANEU, GFR, CBC, BMP ####[place] [address] MCH (RBC) [Entitic mass] 30.9 pg Normal 27.0-33.0 [facility] [place] Comment on above: Performed By: #### A DIFF, MG, ANEU, GFR, CBC, BMP ####[place] [address] MCHC 34.0 G/dL Normal 32.0-36.0 [facility] [place] Comment on above: Performed By: #### A DIFF, MG, ANEU, GFR, CBC, BMP ####[place] [address] MCV (RBC) [Entitic vol] 90.9 fL Normal 80.0-99.0 [facility] [place] Comment on above: Performed By: #### A DIFF, MG, ANEU, GFR, CBC, BMP ####[place] [address] Platelet 299 10 3/mcL Normal 150-450 [facility] [place] Comment on above: Performed By: #### A DIFF, MG, ANEU, GFR, CBC, BMP ####[place] [address] Platelet mean volume (Bld) [Entitic vol] 7.8 fL Normal 6.6-10.5 [facility] [place] Comment on above: Performed By: #### A DIFF, MG, ANEU, GFR, CBC, BMP ####[place] [address] RBC 4.37 10 6/mcL Normal 4.10-5.30 [facility] [place] Comment on above: Performed By: #### A DIFF, MG, ANEU, GFR, CBC, BMP ####[place] [address] WBC 7.1 10 3/mcL Normal 4.5-10.8 [facility] [place] Comment on above: Performed By: #### A DIFF, MG, ANEU, GFR, CBC, BMP ####[place] [address] LABORATORYOrdered By: SYSTEM SYSTEM on 09-06-2023 Basophils (Bld) [#/Vol] 0.1 103/mcL Normal 0.0 - 0.3 10^3/mcL Workflow SS Basophils/100 WBC (Bld) 1.5 % Normal 0.0 - 2.5 % Workflow SS Calcium [Mass/Vol] 8.7 mg/dL Normal 8.7 - 10. 4 mg/dL ADM SS Chloride [Moles/Vol] 101 mmol/L Normal 98 - 11 0 mEq/L ADM SS CO2 [Moles/Vol] 33 mmol/L High 22 - 32 mEq/L ADM SS Creatinine [Mass/Vol] 0.89 mg/dL Normal 0.50 - 1.20 mg/dL ADM SS Electrolyte Balance 3.0 mEq/L Low 4.0 - 15 .0 mEq/L ADM SS Eosinophils (Bld) [#/Vol] 0.4 103/mcL Normal 0.0 - 0.7 10^3/mcL AH Workflow SS Eosinophils/100 WBC (Bld) 5.4 % Normal 0.0 - 6.0 % Workflow SS Erythrocyte distribution width (RBC) [Ratio] 13.7 % Normal 11.5 - 15.5 % Workflow SS GFR/1.73 sq M.predicted among blacks MDRD (S/P/Bld) [Vol rate/Area] ml/min/1.73sqm Invalid Interpretation Code ADM Comment on above: Interpretive Data: GFR Population mean for , Non- Americans Ages 20-29 = 116 mL/min/1.73 sq.m. Ages 30-39 = 107 mL/min/1.73 sq.m. Ages 40-49 = 99 mL/min/1.73 sq.m. Ages 50-59 = 93 mL/min/1.73 sq.m. Ages 60-69 = 85 mL/min/1.73 sq.m. Ages 70+ = 75 mL/min/1.73 sq.m. Chronic Kidney Disease: Less than 60 mL/min/1.73 square meters End Stage Renal Disease: Less than 15 mL/min/1.73 square meters GFR/1.73 sq M.predicted among non-blacks MDRD (S/P/Bld) [Vol rate/Area] ml/min/1.73sqm Invalid Interpretation Code [facility] Comment on above: Interpretive Data: GFR Population mean for , Non- Americans Ages 20-29 = 116 mL/min/1.73 sq.m. Ages 30-39 = 107 mL/min/1.73 sq.m. Ages 40-49 = 99 mL/min/1.73 sq.m. Ages 50-59 = 93 mL/min/1.73 sq.m. Ages 60-69 = 85 mL/min/1.73 sq.m. Ages 70+ = 75 mL/min/1.73 sq.m. Chronic Kidney Disease: Less than 60 mL/min/1.73 square meters End Stage Renal Disease: Less than 15 mL/min/1.73 square meters Glucose [Mass/Vol] 100 mg/dL Normal 82 - 115 mg/dL ADM Hematocrit (Bld) [Volume fraction] 39.7 % Normal 34.0 - 46.0 % Workflow SS Hemoglobin (Bld) [Mass/Vol] 13.5 G/dL Normal 12.0 - 16.0 G/dL AH Workflow SS Lymphocytes (Bld) [#/Vol] 2.0 103/mcL Normal 0.9 - 4.3 10^3/mcL AH Workflow SS Lymphocytes/100 WBC (Bld) 27.7 % Normal 20.0 - 40.0 % AH Workflow SS Magnesium [Mass/Vol] 2.0 mg/dL Normal 1.6 - 2 .4 mg/dL AH ADM SS MCH (RBC) [Entitic mass] 30.9 pg Normal 27.0 - 33.0 pg AH Workflow SS MCHC 34.0 G/dL Normal 32.0 - 36.0 G/dL Workflow SS MCV (RBC) [Entitic vol] 90.9 fL Normal 80.0 - 99.0 fL Workflow SS Monocytes (Bld) [#/Vol] 0.9 103/mcL Normal 0.1 - 1.4 10^3/mcL AH Workflow SS Monocytes/100 WBC (Bld) 13.0 % Normal 2.0 - 13.0 % AH Workflow SS Neutrophils (Bld) [#/Vol] 3.7 103/mcL Normal 2.3 - 8.1 10^3/mcL AH Workflow SS Neutrophils/100 WBC (Bld) 52.4 % Normal 50.0 - 75.0 % Workflow SS Platelet mean volume (Bld) [Entitic vol] 7.8 fL Normal 6.6 - 10.5 fL AH Workflow SS Platelets (Bld) [#/Vol] 299 103/mcL Normal 150 - 450 10^3/mcL AH Workflow SS Potassium [Moles/Vol] 3.9 mmol/L Normal 3.5 - 5.0 mEq/L ADM SS RBC (Bld) [#/Vol] 4.37 106/mcL Normal 4.10 - 5.3 0 10^6/mcL AH Workflow SS Sodium [Moles/Vol] 137 mmol/L Normal 136 - 145 mEq/L ADM SS Urea nitrogen [Mass/Vol] 20.0 mg/dL Normal 8.0 - 22.0 mg/dL AH ADM SS Urea nitrogen/Creatinine [Mass ratio] 22.5 ratio High 10.0 - 22.0 ratio ADM SS WBC (Bld) [#/Vol] 7.1 103/mcL Normal 4.5 - 10.8 10^3/mcL Workflow SS MGon 09-06-2023 Magnesium [Mass/Vol] 2.0 mg/dL Normal 1.6-2.4 [facility] ([place] Comment on above: Performed By: #### A DIFF, MG, ANEU, GFR, CBC, BMP ####[address] [address] .Auto Diffon 09-05-2023 Basophil, Absolute 0.2 10 3/mcL Normal 0.0-0.3 [facility] ([place] Comment on above: Performed By: #### B G #### [address] [address] Basophils/100 WBC (Bld) 2.9 % High 0.0-2.5 [facility] ([place] Comment on above: Performed By: #### B G #### [address] [address] Eosinophil, Absolute 0.2 10 3/mcL Normal 0.0-0.7 [facility] ([place] Comment on above: Performed By: #### B G #### [address] [address] Eosinophils/100 WBC (Bld) 2.1 % Normal 0.0-6.0 [facility] ([place] Comment on above: Performed By: #### B G #### [address] [address] Lymphocyte, Absolute 1.8 10 3/mcL Normal 0.9-4.3 [facility] ([place] Comment on above: Performed By: #### B G #### [address] [address] Lymphocytes/100 WBC (Bld) 25.1 % Normal 20.0-40.0 [facility] ([place] Comment on above: Performed By: #### B G #### [address] [address] Monocyte, Absolute 1.0 10 3/mcL Normal 0.1-1.4 [facility] ([place] Comment on above: Performed By: #### B G #### [address] [address] Monocytes/100 WBC (Bld) 13.7 % High 2.0-13.0 [facility] [place] Comment on above: Performed By: #### B G #### [address] [address] Neutrophils/100 WBC (Bld) 56.2 % Normal 50.0-75.0 [facility] ([place] Comment on above: Performed By: #### B G #### [address] [address] .GFRon 09-05-2023 GFR >60 Normal [facility] ([place] Comment on above: Result Comment: GFR Population mean for , Non- Americans Ages 20-29 = 116 mL/min/1.73 sq.m. Ages 30-39 = 107 mL/min/1.73 sq.m. Ages 40-49 = 99 mL/min/1.73 sq.m. Ages 50-59 = 93 mL/min/1.73 sq.m. Ages 60-69 = 85 mL/min/1.73 sq.m. Ages 70+ = 75 mL/min/1.73 sq.m. Chronic Kidney Disease: Less than 60 mL/min/1.73 square meters End Stage Renal Disease: Less than 15 mL/min/1.73 square meters Performed By: #### B MP, GFR, ANEU, CBC, MG, ADIFF ####[address] [address] GFR Non- >60 Normal [facility] ([place] Comment on above: Result Comment: GFR Population mean for , Non- Americans Ages 20-29 = 116 mL/min/1.73 sq.m. Ages 30-39 = 107 mL/min/1.73 sq.m. Ages 40-49 = 99 mL/min/1.73 sq.m. Ages 50-59 = 93 mL/min/1.73 sq.m. Ages 60-69 = 85 mL/min/1.73 sq.m. Ages 70+ = 75 mL/min/1.73 sq.m. Chronic Kidney Disease: Less than 60 mL/min/1.73 square meters End Stage Renal Disease: Less than 15 mL/min/1.73 square meters Performed By: #### B MP, GFR, ANEU, CBC, MG, ADIFF ####[address] [address] .NEUABSon 09-05-2023 Neutrophil, Absolute 3.9 10 3/mcL Normal 2.3-8.1 [facility] ([place] Comment on above: Performed By: #### B G #### [address] [address] BMPon 09-05-2023 BUN/Creatinine Ratio 20.2 ratio Normal 10.0-22.0 [facility] ([place] Comment on above: Performed By: #### B G #### [place] [address] Calcium [Mass/Vol] 8.7 mg/dL Normal 8.7-10.4 [facility] ([place]) Comment on above: Performed By: #### B G #### [place] [address] Chloride [Moles/Vol] 101 mmol/L Normal 98-110 [facility] ([place] Comment on above: Performed By: #### B G #### [place] [address] CO2 [Moles/Vol] 29 mmol/L Normal 22-32 [facility] [facility] ([place] Comment on above: Performed By: #### B G #### [place] [address] Creatinine [Mass/Vol] 0.89 mg/dL Normal 0.50-1.20 [facility] ([place]) Comment on above: Performed By: #### B G #### [place] [id number] Electrolyte Balance 6.0 mEq/L Normal 4.0-15.0 [facility] [place] Comment on above: Performed By: #### B G #### [place] [id number] Glucose [Mass/Vol] 87 mg/dL Normal 82-115 [facility] ([place]) Comment on above: Performed By: #### B G #### [place] [id number] Potassium [Moles/Vol] 3.6 mmol/L Normal 3.5-5.0 [facility] ([place] Comment on above: Performed By: #### B G #### [place] [id number] Sodium [Moles/Vol] 136 mmol/L Normal 136-145 [facility] ([place] Comment on above: Performed By: #### B G #### [place] [id number] Urea nitrogen [Mass/Vol] 18.0 mg/dL Normal 8.0-22.0 [facility] [place] Comment on [place]: Performed By: #### B G #### [place] [address] CBCon 09-05-2023 Erythrocyte distribution width (RBC) [Ratio] 13.9 % Normal 11.5-15.5 [facility] [place] Comment on above: Performed By: #### B G #### [place] [id number] Hematocrit (Bld) [Volume fraction] 36.4 % Normal 34.0-46.0 [facility] [place] Comment on above: Performed By: #### B G #### [place] [address] Hgb 12.3 G/dL Normal 12.0-16.0 [facility] [place] Comment on above: Performed By: #### B G #### [place] [id number] MCH (RBC) [Entitic mass] 30.7 pg Normal 27.0-33.0 [facility] [place] Comment on above: Performed By: #### B G #### [place] [id number] MCHC 33.7 G/dL Normal 32.0-36.0 [facility] [place] Comment on above: Performed By: #### B G #### [place] [id number] MCV (RBC) [Entitic vol] 91.1 fL Normal 80.0-99.0 [facility] [place] Comment on above: Performed By: #### B G #### [facility] [address] [place] [address] Platelet 278 10 3/mcL Normal 150-450 [facility] [place] Comment on above: Performed By: #### B G #### [facility] [address] [place] [address] Platelet mean volume (Bld) [Entitic vol] 7.5 fL Normal 6.6-10.5 [facility] [place] Comment on above: Performed By: #### B G #### [facility] [address] [place] [address] RBC 4.00 10 6/mcL Low 4.10-5.30 [facility] [place] Comment on above: Performed By: #### B G #### [address] [address] WBC 7.0 10 3/mcL Normal 4.5-10.8 [facility] [place] Comment on above: Performed By: #### B G #### [address] [address] LABORATORYOrdered By: Horace Valdez on 09-05-2023 Blood Glucose Testing Reason Routine (09/05/23 7:27 AM) [facility] Glucose [Mass/Vol] 119 mg/dL High 82 - 115 mg/dL [facility] LABORATORYOrdered By: SYSTEM SYSTEM on 09-05-2023 Basophils (Bld) [#/Vol] 0.2 103/mcL Normal 0.0 - 0.3 10^3/mcL AH Workflow SS Basophils/100 WBC (Bld) 2.9 % High 0.0 - 2.5 % AH Workflow SS Calcium [Mass/Vol] 8.7 mg/dL Normal 8.7 - 10. 4 mg/dL AH ADM SS Chloride [Moles/Vol] 101 mmol/L Normal 98 - 11 0 mEq/L AH ADM SS CO2 [Moles/Vol] 29 mmol/L Normal 22 - 32 mEq/L AH ADM SS Creatinine [Mass/Vol] 0.89 mg/dL Normal 0.50 - 1.20 mg/dL ADM SS Electrolyte Balance 6.0 mEq/L Normal 4.0 - 15 .0 mEq/L ADM SS Eosinophils (Bld) [#/Vol] 0.2 103/mcL Normal 0.0 - 0.7 10^3/mcL Workflow SS Eosinophils/100 WBC (Bld) 2.1 % Normal 0.0 - 6.0 % Workflow SS Erythrocyte distribution width (RBC) [Ratio] 13.9 % Normal 11.5 - 15.5 % Workflow SS GFR/1.73 sq M.predicted among blacks MDRD (S/P/Bld) [Vol rate/Area] ml/min/1.73sqm Invalid Interpretation Code ADM Comment on above: Interpretive Data: GFR Population mean for , Non- Americans Ages 20-29 = 116 mL/min/1.73 sq.m. Ages 30-39 = 107 mL/min/1.73 sq.m. Ages 40-49 = 99 mL/min/1.73 sq.m. Ages 50-59 = 93 mL/min/1.73 sq.m. Ages 60-69 = 85 mL/min/1.73 sq.m. Ages 70+ = 75 mL/min/1.73 sq.m. Chronic Kidney Disease: Less than 60 mL/min/1.73 square meters End Stage Renal Disease: Less than 15 mL/min/1.73 square meters GFR/1.73 sq M.predicted among non-blacks MDRD (S/P/Bld) [Vol rate/Area] ml/min/1.73sqm Invalid Interpretation Code [facility] Comment on above: Interpretive Data: GFR Population mean for , Non- Americans Ages 20-29 = 116 mL/min/1.73 sq.m. Ages 30-39 = 107 mL/min/1.73 sq.m. Ages 40-49 = 99 mL/min/1.73 sq.m. Ages 50-59 = 93 mL/min/1.73 sq.m. Ages 60-69 = 85 mL/min/1.73 sq.m. Ages 70+ = 75 mL/min/1.73 sq.m. Chronic Kidney Disease: Less than 60 mL/min/1.73 square meters End Stage Renal Disease: Less than 15 mL/min/1.73 square meters Glucose [Mass/Vol] 87 mg/dL Normal 82 - 115 mg/dL ADM SS Hematocrit (Bld) [Volume fraction] 36.4 % Normal 34.0 - 46.0 % AH Workflow SS Hemoglobin (Bld) [Mass/Vol] 12.3 G/dL Normal 12.0 - 16.0 G/dL AH Workflow SS Lymphocytes (Bld) [#/Vol] 1.8 103/mcL Normal 0.9 - 4.3 10^3/mcL AH Workflow SS Lymphocytes/100 WBC (Bld) 25.1 % Normal 20.0 - 40.0 % AH Workflow SS Magnesium [Mass/Vol] 2.2 mg/dL Normal 1.6 - 2 .4 mg/dL ADM SS MCH (RBC) [Entitic mass] 30.7 pg Normal 27.0 - 33.0 pg AH Workflow SS MCHC 33.7 G/dL Normal 32.0 - 36.0 G/dL Workflow SS MCV (RBC) [Entitic vol] 91.1 fL Normal 80.0 - 99.0 fL AH Workflow SS Monocytes (Bld) [#/Vol] 1.0 103/mcL Normal 0.1 - 1.4 10^3/mcL AH Workflow SS Monocytes/100 WBC (Bld) 13.7 % High 2.0 - 13.0 % AH Workflow SS Neutrophils (Bld) [#/Vol] 3.9 103/mcL Normal 2.3 - 8.1 10^3/mcL AH Workflow SS Neutrophils/100 WBC (Bld) 56.2 % Normal 50.0 - 75.0 % AH Workflow SS Platelet mean volume (Bld) [Entitic vol] 7.5 fL Normal 6.6 - 10.5 fL AH Workflow SS Platelets (Bld) [#/Vol] 278 103/mcL Normal 150 - 450 10^3/mcL AH Workflow SS Potassium [Moles/Vol] 3.6 mmol/L Normal 3.5 - 5.0 mEq/L AH ADM SS RBC (Bld) [#/Vol] 4.00 106/mcL Low 4.10 - 5.3 0 10^6/mcL AH Workflow SS Sodium [Moles/Vol] 136 mmol/L Normal 136 - 145 mEq/L ADM SS Urea nitrogen [Mass/Vol] 18.0 mg/dL Normal 8.0 - 22.0 mg/dL AH ADM SS Urea nitrogen/Creatinine [Mass ratio] 20.2 ratio Normal 10.0 - 22.0 ratio AH ADM SS WBC (Bld) [#/Vol] 7.0 103/mcL Normal 4.5 - 10.8 10^3/mcL AH Workflow SS MGon 09-05-2023 Magnesium [Mass/Vol] 2.2 mg/dL Normal 1.6-2.4 [facility] ([place]) Comment on above: Performed By: #### B MP, GFR, ANEU, CBC, MG, ADIFF ####[address] [address] .Auto Diffon 09-04-2023 Basophil, Absolute 0.1 10 3/mcL Normal 0.0-0.3 [facility] ([place]) Comment on above: Performed By: #### C MP, GFR, CBC, ANEU, ADIFF ####[address] [address] Basophils/100 WBC (Bld) 1.3 % Normal 0.0-2.5 [facility] ([place] Comment on above: Performed By: #### C MP, GFR, CBC, ANEU, ADIFF ####[address] [address] Eosinophil, Absolute 0.1 10 3/mcL Normal 0.0-0.7 [facility] ([place]) Comment on above: Performed By: #### C MP, GFR, CBC, ANEU, ADIFF ####[address] [address] Eosinophils/100 WBC (Bld) 1.0 % Normal 0.0-6.0 [facility] ([place] Comment on above: Performed By: #### C MP, GFR, CBC, ANEU, ADIFF ####[address] [address] Lymphocyte, Absolute 1.9 10 3/mcL Normal 0.9-4.3 [facility] ([place]) Comment on above: Performed By: #### C MP, GFR, CBC, ANEU, ADIFF ####[address] [address] Lymphocytes/100 WBC (Bld) 23.0 % Normal 20.0-40.0 [facility] ([place] Comment on above: Performed By: #### C MP, GFR, CBC, ANEU, ADIFF ####[address] [address] Monocyte, Absolute 1.0 10 3/mcL Normal 0.1-1.4 [facility] ([place] Comment on above: Performed By: #### C MP, GFR, CBC, ANEU, ADIFF ####[address] [address] Monocytes/100 WBC (Bld) 11.5 % Normal 2.0-13.0 [facility] ([place] Comment on above: Performed By: #### C MP, GFR, CBC, ANEU, ADIFF ####[address] [address] Neutrophils/100 WBC (Bld) 63.2 % Normal 50.0-75.0 [facility] [place] Comment on above: Performed By: #### C MP, GFR, CBC, ANEU, ADIFF ####[address] [address] .GFRon 09-04-2023 GFR >60 Normal [facility] ([place]) Comment on above: Result Comment: GFR Population mean for , Non- Americans Ages 20-29 = 116 mL/min/1.73 sq.m. Ages 30-39 = 107 mL/min/1.73 sq.m. Ages 40-49 = 99 mL/min/1.73 sq.m. Ages 50-59 = 93 mL/min/1.73 sq.m. Ages 60-69 = 85 mL/min/1.73 sq.m. Ages 70+ = 75 mL/min/1.73 sq.m. Chronic Kidney Disease: Less than 60 mL/min/1.73 square meters End Stage Renal Disease: Less than 15 mL/min/1.73 square meters Performed By: #### C MP, GFR, CBC, ANEU, ADIFF ####[address] [address] GFR Non- >60 Normal [facility] [place] Comment on above: Result Comment: GFR Population mean for , Non- Americans Ages 20-29 = 116 mL/min/1.73 sq.m. Ages 30-39 = 107 mL/min/1.73 sq.m. Ages 40-49 = 99 mL/min/1.73 sq.m. Ages 50-59 = 93 mL/min/1.73 sq.m. Ages 60-69 = 85 mL/min/1.73 sq.m. Ages 70+ = 75 mL/min/1.73 sq.m. Chronic Kidney Disease: Less than 60 mL/min/1.73 square meters End Stage Renal Disease: Less than 15 mL/min/1.73 square meters Performed By: #### C MP, GFR, CBC, ANEU, ADIFF ####[address] [address] .NEUABSon 09-04-2023 Neutrophil, Absolute 5.3 10 3/mcL Normal 2.3-8.1 [facility] ([place]) Comment on above: Performed By: #### C MP, GFR, CBC, ANEU, ADIFF ####[address] [address] APTTon 09-04-2023 aPTT Coag (Bld) [Time] 27.4 s Normal 25.0-35.0 [facility] [place] Comment on above: Result Comment: For Heparin anticoagulation therapy, the recommended therapeutic range is: 54-77 seconds (APTT Correlation with Anti-Xa therapeutic range of 0.3-0.7 units/ml). PLEASE REFERENCE THE PHARMACY PROTOCOL FOR DOSING. Heparin dose (APTT) Unknown [facility] [place] aPTT Coag (Bld) [Time] 46.1 s High 25.0-35.0 [facility] [place] Comment on above: Result Comment: For Heparin anticoagulation therapy, the recommended therapeutic range is: 54-77 seconds (APTT Correlation with Anti-Xa therapeutic range of 0.3-0.7 units/ml). PLEASE REFERENCE THE PHARMACY PROTOCOL FOR DOSING. Heparin dose (APTT) Heparin IV [facility] [place] aPTT Coag (Bld) [Time] 41.1 s High 25.0-35.0 [facility] [place] Comment on above: Result Comment: For Heparin anticoagulation therapy, the recommended therapeutic range is: 54-77 seconds (APTT Correlation with Anti-Xa therapeutic range of 0.3-0.7 units/ml). PLEASE REFERENCE THE PHARMACY PROTOCOL FOR DOSING. Heparin dose (APTT) Heparin IV Normal [facility] [place]) CBCon 09-04-2023 Erythrocyte distribution width (RBC) [Ratio] 14.0 % Normal 11.5-15.5 [facility] ([place] Comment on above: Performed By: #### C MP, GFR, CBC, ANEU, ADIFF ####[place] [address] Hematocrit (Bld) [Volume fraction] 37.8 % Normal 34.0-46.0 [facility] [place] Comment on above: Performed By: #### C MP, GFR, CBC, ANEU, ADIFF ####[place] [address] Hgb 12.8 G/dL Normal 12.0-16.0 [facility] ([place] Comment on above: Performed By: #### C MP, GFR, CBC, ANEU, ADIFF ####[place] [address] MCH (RBC) [Entitic mass] 30.7 pg Normal 27.0-33.0 [facility] ([place] Comment on above: Performed By: #### C MP, GFR, CBC, ANEU, ADIFF ####[place] [address] MCHC 33.9 G/dL Normal 32.0-36.0 [facility] ([place] Comment on above: Performed By: #### C MP, GFR, CBC, ANEU, ADIFF ####[place] [address] MCV (RBC) [Entitic vol] 90.6 fL Normal 80.0-99.0 [facility] ([place] Comment on above: Performed By: #### C MP, GFR, CBC, ANEU, ADIFF ####[place] [address] Platelet 281 10 3/mcL Normal 150-450 [facility] ([place] Comment on above: Performed By: #### C MP, GFR, CBC, ANEU, ADIFF ####[place] [address] Platelet mean volume (Bld) [Entitic vol] 7.6 fL Normal 6.6-10.5 [facility] ([place] Comment on above: Performed By: #### C MP, GFR, CBC, ANEU, ADIFF ####[address] [address] RBC 4.17 10 6/mcL Normal 4.10-5.30 [facility] ([place] Comment on above: Performed By: #### C MP, GFR, CBC, ANEU, ADIFF ####[address] [address] WBC 8.5 10 3/mcL Normal 4.5-10.8 [facility] ([place] Comment on above: Performed By: #### C MP, GFR, CBC, ANEU, ADIFF ####[place] [address] CMPon 09-04-2023 Albumin Level 3.3 G/dL Normal 3.2-4.8 [facility] ([place] Comment on above: Performed By: #### C MP, GFR, CBC, ANEU, ADIFF ####[address] [address] Albumin/Globulin [Mass ratio] 1.0 {ratio} Normal 0.9-1.6 [facility] ([place] Comment on above: Performed By: #### C MP, GFR, CBC, ANEU, ADIFF ####[address] [address] ALP [Catalytic activity/Vol] 95 U/L Normal 38-126 [facility] ([place] Comment on above: Performed By: #### C MP, GFR, CBC, ANEU, ADIFF ####[address] [address] ALT [Catalytic activity/Vol] 103 U/L High 10-49 [facility] ([place] Comment on above: Performed By: #### C MP, GFR, CBC, ANEU, ADIFF ####[address] [address] AST [Catalytic activity/Vol] 64 U/L High 8-34 [facility] ([place] Comment on above: Performed By: #### C MP, GFR, CBC, ANEU, ADIFF ####[address] [address] Bili Total 1.00 mg/dL Normal 0.20-1.20 [facility] ([place] Comment on above: Result Comment: Use of this assay is not recommended for patients undergoing treatment with eltrombopag due to the potential for falsely elevated results. Performed By: #### C MP, GFR, CBC, ANEU, ADIFF ####[place] [id number] BUN/Creatinine Ratio 23.1 ratio High 10.0-22.0 [facility] ([place]) Comment on above: Performed By: #### C MP, GFR, CBC, ANEU, ADIFF ####[place] [id number] Calcium [Mass/Vol] 9.0 mg/dL Normal 8.7-10.4 [facility] ([place]) Comment on above: Performed By: #### C MP, GFR, CBC, ANEU, ADIFF ####[address] [address] Chloride [Moles/Vol] 100 mmol/L Normal 98-110 [facility] ([place] Comment on above: Performed By: #### C MP, GFR, CBC, ANEU, ADIFF ####[address] [address] CO2 [Moles/Vol] 30 mmol/L Normal 22-32 [facility] ([place] Comment on above: Performed By: #### C MP, GFR, CBC, ANEU, ADIFF ####[address] [address] Creatinine [Mass/Vol] 0.78 mg/dL Normal 0.50-1.20 [facility] ([place]) Comment on above: Performed By: #### C MP, GFR, CBC, ANEU, ADIFF ####[address] [address] Electrolyte Balance 3.0 mEq/L Low 4.0-15.0 [facility] [place] Comment on above: Performed By: #### C MP, GFR, CBC, ANEU, ADIFF ####[address] [address] Globulin 3.4 G/dL Normal 1.5-3.8 [facility] ([place] Comment on above: Performed By: #### C MP, GFR, CBC, ANEU, ADIFF ####[address] [address] Glucose [Mass/Vol] 134 mg/dL High 82-115 [facility] ([place]) Comment on above: Performed By: #### C MP, GFR, CBC, ANEU, ADIFF ####[address] [address] Potassium [Moles/Vol] 3.1 mmol/L Low 3.5-5.0 [facility] ([place] Comment on above: Performed By: #### C MP, GFR, CBC, ANEU, ADIFF ####[address] [address] Sodium [Moles/Vol] 133 mmol/L Low 136-145 [facility] ([place]) Comment on above: Performed By: #### C MP, GFR, CBC, ANEU, ADIFF ####[place] [address] Total Protein 6.7 G/dL Normal 5.7-8.2 [facility] ([place] Comment on above: Result Comment: No te - New Reference Range in effect 20 Performed By: #### C MP, GFR, CBC, ANEU, ADIFF ####[address] [address] Urea nitrogen [Mass/Vol] 18.0 mg/dL Normal 8.0-22.0 [facility] ([place] Comment on above: Performed By: #### C MP, GFR, CBC, ANEU, ADIFF ####[address] [place] [address] LABORATORYOrdered By: Pee Cerna on 09-04-2023 Blood Glucose Testing Reason Routine (09/04/23 9:00 PM) [facility] Glucose [Mass/Vol] 98 mg/dL Normal 82 - 115 mg/dL [facility] LABORATORYOrdered By: Carolynn Weston on 09-04-2023 aPTT Coag (Bld) [Time] 27.4 s Normal 25.0 - 35.0 seconds [facility] SS Comment on above: Interpretive Data: F or Heparin anticoagulation therapy, the recommended therapeutic range is: 54-77 seconds (APTT Correlation with Anti-Xa therapeutic range of 0.3-0.7 units/ml). PLEASE REFERENCE THE PHARMACY PROTOCOL FOR DOSING. Heparin dose (APTT) Unknown (09/04/23 4:21 PM) Normal Coagulation S LABORATORYOrdered By: Graciela Dukes on 09-04-2023 Blood Glucose Testing Reason Routine (09/04/23 4:19 PM) [facility] Glucose [Mass/Vol] 97 mg/dL Normal 82 - 115 mg/dL [facility] LABORATORYOrdered By: SYSTEM SYSTEM on 09-04-2023 Albumin BCP dye [Mass/Vol] 3.3 G/dL Normal 3.2 - 4.8 G/dL ADM SS Albumin/Globulin [Mass ratio] 1.0 {ratio} Normal 0.9 - 1.6 ratio ADM SS ALP [Catalytic activity/Vol] 95 U/L Normal 38 - 126 U/L ADM SS ALT No additional P-5'-P [Catalytic activity/Vol] 103 U/L High 10 - 49 U/L AH ADM SS AST [Catalytic activity/Vol] 64 U/L High 8 - 34 U/L ADM SS Basophils (Bld) [#/Vol] 0.1 103/mcL Normal 0.0 - 0.3 10^3/mcL Workflow SS Basophils/100 WBC (Bld) 1.3 % Normal 0.0 - 2.5 % Workflow SS Bilirubin [Mass/Vol] 1.00 mg/dL Normal 0.20 - 1.20 mg/dL ADM Comment on above: Interpretive Data: U se of this assay is not recommended for patients undergoing treatment with eltrombopag due to the potential for falsely elevated results. Calcium [Mass/Vol] 9.0 mg/dL Normal 8.7 - 10. 4 mg/dL ADM SS Chloride [Moles/Vol] 100 mmol/L Normal 98 - 11 0 mEq/L ADM SS CO2 [Moles/Vol] 30 mmol/L Normal 22 - 32 mEq/L ADM SS Creatinine [Mass/Vol] 0.78 mg/dL Normal 0.50 - 1.20 mg/dL ADM SS Electrolyte Balance 3.0 mEq/L Low 4.0 - 15 .0 mEq/L ADM SS Eosinophils (Bld) [#/Vol] 0.1 103/mcL Normal 0.0 - 0.7 10^3/mcL Workflow SS Eosinophils/100 WBC (Bld) 1.0 % Normal 0.0 - 6.0 % Workflow SS Erythrocyte distribution width (RBC) [Ratio] 14.0 % Normal 11.5 - 15.5 % Workflow SS GFR/1.73 sq M.predicted among blacks MDRD (S/P/Bld) [Vol rate/Area] ml/min/1.73sqm Invalid Interpretation Code ADM Comment on above: Interpretive Data: GFR Population mean for , Non- Americans Ages 20-29 = 116 mL/min/1.73 sq.m. Ages 30-39 = 107 mL/min/1.73 sq.m. Ages 40-49 = 99 mL/min/1.73 sq.m. Ages 50-59 = 93 mL/min/1.73 sq.m. Ages 60-69 = 85 mL/min/1.73 sq.m. Ages 70+ = 75 mL/min/1.73 sq.m. Chronic Kidney Disease: Less than 60 mL/min/1.73 square meters End Stage Renal Disease: Less than 15 mL/min/1.73 square meters GFR/1.73 sq M.predicted among non-blacks MDRD (S/P/Bld) [Vol rate/Area] ml/min/1.73sqm Invalid Interpretation Code ADM Comment on above: Interpretive Data: GFR Population mean for , Non- Americans Ages 20-29 = 116 mL/min/1.73 sq.m. Ages 30-39 = 107 mL/min/1.73 sq.m. Ages 40-49 = 99 mL/min/1.73 sq.m. Ages 50-59 = 93 mL/min/1.73 sq.m. Ages 60-69 = 85 mL/min/1.73 sq.m. Ages 70+ = 75 mL/min/1.73 sq.m. Chronic Kidney Disease: Less than 60 mL/min/1.73 square meters End Stage Renal Disease: Less than 15 mL/min/1.73 square meters Globulin 3.4 G/dL Normal 1.5 - 3.8 G/dL AH ADM SS Glucose [Mass/Vol] 134 mg/dL High 82 - 115 mg/dL AH ADM SS Hematocrit (Bld) [Volume fraction] 37.8 % Normal 34.0 - 46.0 % AH Workflow SS Hemoglobin (Bld) [Mass/Vol] 12.8 G/dL Normal 12.0 - 16.0 G/dL AH Workflow SS Lymphocytes (Bld) [#/Vol] 1.9 103/mcL Normal 0.9 - 4.3 10^3/mcL AH Workflow SS Lymphocytes/100 WBC (Bld) 23.0 % Normal 20.0 - 40.0 % AH Workflow SS MCH (RBC) [Entitic mass] 30.7 pg Normal 27.0 - 33.0 pg AH Workflow SS MCHC 33.9 G/dL Normal 32.0 - 36.0 G/dL AH Workflow SS MCV (RBC) [Entitic vol] 90.6 fL Normal 80.0 - 99.0 fL AH Workflow SS Monocytes (Bld) [#/Vol] 1.0 103/mcL Normal 0.1 - 1.4 10^3/mcL AH Workflow SS Monocytes/100 WBC (Bld) 11.5 % Normal 2.0 - 13.0 % AH Workflow SS Neutrophils (Bld) [#/Vol] 5.3 103/mcL Normal 2.3 - 8.1 10^3/mcL AH Workflow SS Neutrophils/100 WBC (Bld) 63.2 % Normal 50.0 - 75.0 % AH Workflow SS Platelet mean volume (Bld) [Entitic vol] 7.6 fL Normal 6.6 - 10.5 fL AH Workflow SS Platelets (Bld) [#/Vol] 281 103/mcL Normal 150 - 450 10^3/mcL AH Workflow SS Potassium [Moles/Vol] 3.1 mmol/L Low 3.5 - 5.0 mEq/L AH ADM SS Protein [Mass/Vol] 6.7 G/dL Normal 5.7 - 8.2 G/dL AH ADM SS Comment on above: Interpretive Data: * *Note - New Reference Range in effect 20 RBC (Bld) [#/Vol] 4.17 106/mcL Normal 4.10 - 5.3 0 10^6/mcL AH Workflow SS Sodium [Moles/Vol] 133 mmol/L Low 136 - 145 mEq/L AH ADM SS Urea nitrogen [Mass/Vol] 18.0 mg/dL Normal 8.0 - 22.0 mg/dL AH ADM SS Urea nitrogen/Creatinine [Mass ratio] 23.1 ratio High 10.0 - 22.0 ratio AH ADM SS WBC (Bld) [#/Vol] 8.5 103/mcL Normal 4.5 - 10.8 10^3/mcL AH Workflow SS LABORATORYOrdered By: Marcell Wakefield on 09-04-2023 aPTT Coag (Bld) [Time] 46.1 s High 25.0 - 35.0 seconds AH [facility] SS Comment on above: Interpretive Data: F or Heparin anticoagulation therapy, the recommended therapeutic range is: 54-77 seconds (APTT Correlation with Anti-Xa therapeutic range of 0.3-0.7 units/ml). PLEASE REFERENCE THE PHARMACY PROTOCOL FOR DOSING. Heparin dose (APTT) Heparin IV (09/04/23 8:55 AM) Normal AH Coagulation S LABORATORYOrdered By: Will Boss on 09-04-2023 aPTT Coag (Bld) [Time] 41.1 s High 25.0 - 35.0 seconds AH [facility] SS Comment on above: Interpretive Data: F or Heparin anticoagulation therapy, the recommended therapeutic range is: 54-77 seconds (APTT Correlation with Anti-Xa therapeutic range of 0.3-0.7 units/ml). PLEASE REFERENCE THE PHARMACY PROTOCOL FOR DOSING. Heparin dose (APTT) Heparin IV (09/04/23 1:16 AM) Normal AH Coagulation S MYCOon 09-04-2023 Mycoplasma IgM Negative Normal [facility] ([place]) Comment on above: Result Comment: INTE RPRETATION OF MYCOPLASMA IgM: Negative: IgM to M. pneumoniae Absent, or at levels below the assay limit of detection. Positive: IgM to M. pneumoniae Present. Invalid: Test results are invalid due to invalid internal control. Assay was performed in duplicate. Repeat testing is suggested if clinically indicated. Performed By: #### P HOS, TROPHS, MG, CBC, ADIFF, ANEU, MYCO, CMP, CAION, GFR ####[place] [id number] [address] [place] [id number] XR CHEST 1 VIEWon 09-04-2023 XR CHEST 1 VIEW ORIGINAL EXAMINATION: ONE XRAY VIEW OF THE CHEST 09/04/2023 6:17 am COMPARISON: None. HISTORY: ORDERING SYSTEM PROVIDED HISTORY: Reason for Exam: SOB FINDINGS: Mild cardiomegaly. Interstitial and alveolar haziness throughout the lungs bilaterally, unchanged. Lungs are hyperinflated. Small bilateral effusions. IMPRESSION: Small bilateral effusions with chronic opacities throughout the lungs bilaterally. Interpreted by: Shahida Galicia MD Preliminary Report By: Shahida Galicia MD Electronically signed By Shahida Galicia MD Dictated Date: 09/04/2023 6:39:13 AM Prelim Date: 09/04/2023 6:42:09 AM Sign Date: 09/04/2023 6:42:09 AM Ordering Provider: FEDERICA DOVER [facility] ([place]) .Auto Diffon 09-03-2023 Basophil, Absolute 0.1 10 3/mcL Normal 0.0-0.3 [facility] ([place]) Comment on above: Performed By: #### T ROPHS, MG, LAC, GFR, CBC, CMP, ADIFF, ANEU ####[place] [id number] [place] [address] Basophils/100 WBC (Bld) 0.6 % Normal 0.0-2.5 [facility] ([place] Comment on above: Performed By: #### T ROPHS, MG, LAC, GFR, CBC, CMP, ADIFF, ANEU ####[place] [id number] [place] [address] Eosinophil, Absolute 0.0 10 3/mcL Normal 0.0-0.7 [facility] ([place]) Comment on above: Performed By: #### T ROPHS, MG, LAC, GFR, CBC, CMP, ADIFF, ANEU ####[address] [address] Eosinophils/100 WBC (Bld) 0.2 % Normal 0.0-6.0 [facility] ([place] Comment on above: Performed By: #### T ROPHS, MG, LAC, GFR, CBC, CMP, ADIFF, ANEU ####[address] [address] Lymphocyte, Absolute 2.0 10 3/mcL Normal 0.9-4.3 [facility] ([place]) Comment on above: Performed By: #### T ROPHS, MG, LAC, GFR, CBC, CMP, ADIFF, ANEU ####[address] [address] Lymphocytes/100 WBC (Bld) 20.9 % Normal 20.0-40.0 [facility] ([place]) Comment on above: Performed By: #### T ROPHS, MG, LAC, GFR, CBC, CMP, ADIFF, ANEU ####[address] [id number] Monocyte, Absolute 1.1 10 3/mcL Normal 0.1-1.4 [facility] ([place]) Comment on above: Performed By: #### T ROPHS, MG, LAC, GFR, CBC, CMP, ADIFF, ANEU ####[address] [address] Monocytes/100 WBC (Bld) 10.8 % Normal 2.0-13.0 [facility] [place] Comment on above: Performed By: #### T ROPHS, MG, LAC, GFR, CBC, CMP, ADIFF, ANEU ####[address] [address] Neutrophils/100 WBC (Bld) 67.5 % Normal 50.0-75.0 [facility] [place] Comment on above: Performed By: #### T ROPHS, MG, LAC, GFR, CBC, CMP, ADIFF, ANEU ####[address] [address] .GFRon 09-03-2023 GFR >60 Normal [facility] ([place]) Comment on above: Result Comment: GFR Population mean for , Non- Americans Ages 20-29 = 116 mL/min/1.73 sq.m. Ages 30-39 = 107 mL/min/1.73 sq.m. Ages 40-49 = 99 mL/min/1.73 sq.m. Ages 50-59 = 93 mL/min/1.73 sq.m. Ages 60-69 = 85 mL/min/1.73 sq.m. Ages 70+ = 75 mL/min/1.73 sq.m. Chronic Kidney Disease: Less than 60 mL/min/1.73 square meters End Stage Renal Disease: Less than 15 mL/min/1.73 square meters Performed By: #### B G #### [place] [address] GFR Non- 56 ml/min/1.73sqm Normal [facility] [place] Comment on [place]: Result Comment: GFR Population mean for , Non- Americans Ages 20-29 = 116 mL/min/1.73 sq.m. Ages 30-39 = 107 mL/min/1.73 sq.m. Ages 40-49 = 99 mL/min/1.73 sq.m. Ages 50-59 = 93 mL/min/1.73 sq.m. Ages 60-69 = 85 mL/min/1.73 sq.m. Ages 70+ = 75 mL/min/1.73 sq.m. Chronic Kidney Disease: Less than 60 mL/min/1.73 square meters End Stage Renal Disease: Less than 15 mL/min/1.73 square meters Performed By: #### B G #### [place] [address] .NEUABSon 09-03-2023 Neutrophil, Absolute 6.6 10 3/mcL Normal 2.3-8.1 [facility] ([place]) Comment on above: Performed By: #### T ROPHS, MG, LAC, GFR, CBC, CMP, ADIFF, ANEU ####[place] [address] APTTon 09-03-2023 aPTT Coag (Bld) [Time] 44.3 s High 25.0-35.0 [facility] [place] Comment [place]: Result Comment: For Heparin anticoagulation therapy, the recommended therapeutic range is: 54-77 seconds (APTT Correlation with Anti-Xa therapeutic range of 0.3-0.7 units/ml). PLEASE REFERENCE THE PHARMACY PROTOCOL FOR DOSING. Heparin dose (APTT) [facility]arin IV [facility] aPTT Coag (Bld) [Time] 45.1 s High 25.0-35.0 [facility] [place] Comment [place]: Result Comment: For Heparin anticoagulation therapy, the recommended therapeutic range is: 54-77 seconds (APTT Correlation with Anti-Xa therapeutic range of 0.3-0.7 units/ml). PLEASE REFERENCE THE PHARMACY PROTOCOL FOR DOSING. Heparin dose (APTT) Heparin IV [facility] [place] BGon 09-03-2023 Barometric Pressure 715 mmHg [facility] [place] Comment on above: Performed By: #### L AC #### [address] [address] Base excess Calc (Bld) [Moles/Vol] 7.6 mmol/L Normal [facility] [place] Comment on above: Performed By: #### L AC #### [address] [address] CO2 [Moles/Vol] 30.7 mmol/L High 22.0-30.0 [facility] [place] Comment [place] above: Performed By: #### L AC #### [address] [address] HCO3 (Bld) [Moles/Vol] 29.7 mmol/L High 21.0-29.0 [facility] [place] Comment [place] above: Performed By: #### L AC #### [address] [address] Oxygen (Bld) [Partial pressure] 65.0 mm[Hg] Low 74.0-108.0 [facility] [place] Comment [place]: Performed By: #### L AC #### [address] [address] Oxygen saturation in Blood 94.0 % Normal 92.0-96.0 [facility] [place] Comment on above: Performed By: #### L AC #### [facility] [address] [place] [address] pCO2 33.3 mmHg Normal 32.0-46.0 [facility] [place] Comment on above: Performed By: #### L AC #### [address] [address] pH (Bld) 7.568 [pH] High 7.380-7.460 [facility] [place] Comment on above: Performed By: #### L AC #### [address] [address] Barometric Pressure 720 mmHg [facility] [place] Comment on above: Performed By: #### B G ####[address] [address] Base excess Calc (Bld) [Moles/Vol] 7.2 mmol/L Normal [facility] [place] Comment on above: Performed By: #### B G ####[address] [address] CO2 [Moles/Vol] 32.5 mmol/L High 22.0-30.0 [facility] [place] Comment [place] above: Performed By: #### B G ####[address] [address] HCO3 (Bld) [Moles/Vol] 31.2 mmol/L High 21.0-29.0 [facility] [place] Comment on above: Performed By: #### B G ####[address] [address] Oxygen (Bld) [Partial pressure] 86.0 mm[Hg] Normal 74.0-108.0 [facility] [place] Comment [place] above: Performed By: #### B G ####[address] [address] Oxygen saturation in Blood 96.7 % High 92.0-96.0 [facility] [place] Comment on above: Performed By: #### B G ####[place] [address] pCO2 41.9 mmHg Normal 32.0-46.0 [facility] [place] Comment [place] above: Performed By: #### B G ####[place] [address] pH (Bld) 7.490 [pH] High 7.380-7.460 [facility] [place] Comment [place] above: Performed By: #### B G ####[place] [address] CBCon 09-03-2023 Erythrocyte distribution width (RBC) [Ratio] 14.6 % Normal 11.5-15.5 [facility] [place] Comment [place] above: Performed By: #### T ROPHS, MG, LAC, GFR, CBC, CMP, ADIFF, ANEU ####[place] [address] Hematocrit (Bld) [Volume fraction] 36.6 % Normal 34.0-46.0 [facility] [place] Comment [place] above: Performed By: #### T ROPHS, MG, LAC, GFR, CBC, CMP, ADIFF, ANEU ####[place] [address] Hgb 12.3 G/dL Normal 12.0-16.0 [facility] [place] Comment [place] above: Performed By: #### T ROPHS, MG, LAC, GFR, CBC, CMP, ADIFF, ANEU ####[place] [address] MCH (RBC) [Entitic mass] 30.3 pg Normal 27.0-33.0 [facility] [place] Comment [place] above: Performed By: #### T ROPHS, MG, LAC, GFR, CBC, CMP, ADIFF, ANEU ####[place] [address] MCHC 33.5 G/dL Normal 32.0-36.0 [facility] [place] Comment on above: Performed By: #### T ROPHS, MG, LAC, GFR, CBC, CMP, ADIFF, ANEU ####[address] [address] MCV (RBC) [Entitic vol] 90.2 fL Normal 80.0-99.0 [facility] [place] Comment [place] above: Performed By: #### T ROPHS, MG, LAC, GFR, CBC, CMP, ADIFF, ANEU ####[place] [id number] Platelet 274 10 3/mcL Normal 150-450 [facility] [place] Comment on above: Performed By: #### T ROPHS, MG, LAC, GFR, CBC, CMP, ADIFF, ANEU ####[place] [id number] Platelet mean volume (Bld) [Entitic vol] 7.7 fL Normal 6.6-10.5 [facility] [place] Comment on above: Performed By: #### T ROPHS, MG, LAC, GFR, CBC, CMP, ADIFF, ANEU ####[place] [address] RBC 4.05 10 6/mcL Low 4.10-5.30 [facility] [place] Comment on above: Performed By: #### T ROPHS, MG, LAC, GFR, CBC, CMP, ADIFF, ANEU ####[address] [address] WBC 9.8 10 3/mcL Normal 4.5-10.8 [facility] [place] Comment on above: Performed By: #### T ROPHS, MG, LAC, GFR, CBC, CMP, ADIFF, ANEU ####[address] [address] CMPon 09-03-2023 Albumin Level 2.8 G/dL Low 3.2-4.8 [facility] [place] Comment [place]: Performed By: #### B G #### [address] [address] Albumin/Globulin [Mass ratio] 1.0 {ratio} Normal 0.9-1.6 [facility] [place] Comment on above: Performed By: #### B G #### [address] [address] ALP [Catalytic activity/Vol] 98 U/L Normal 38-126 [facility] [place] Comment on above: Performed By: #### B G #### [address] [address] ALT [Catalytic activity/Vol] 138 U/L High 10-49 [facility] [place] Comment on above: Performed By: #### B G #### [address] [address] AST [Catalytic activity/Vol] 92 U/L High 8-34 [facility] [place] Comment on above: Performed By: #### B G #### [address] [address] Bili Total 0.60 mg/dL Normal 0.20-1.20 [facility] [place] Comment on above: Result Comment: Use of this assay is not recommended for patients undergoing treatment with eltrombopag due to the potential for falsely elevated results. Performed By: #### Sidney G #### [address] [address] BUN/Creatinine Ratio 27.6 ratio High 10.0-22.0 [facility] ([place] Comment on above: Performed By: #### B G #### [address] [address] Calcium [Mass/Vol] 8.5 mg/dL Low 8.7-10.4 [facility] ([place]) Comment on above: Performed By: #### B G #### [address] [address] Chloride [Moles/Vol] 105 mmol/L Normal 98-110 [facility] [place] Comment on above: Performed By: #### B G #### [address] [address] CO2 [Moles/Vol] 31 mmol/L Normal 22-32 [facility] [place] Comment on above: Performed By: #### Sidney G #### [address] [address] Creatinine [Mass/Vol] 0.98 mg/dL Normal 0.50-1.20 [facility] ([place] Comment on above: Performed By: #### B G #### [address] [address] Electrolyte Balance 4.0 mEq/L Normal 4.0-15.0 [facility] [place] Comment on above: Performed By: #### B G #### [address] [address] Globulin 2.9 G/dL Normal 1.5-3.8 [facility] [place] Comment on above: Performed By: #### B G #### [place] [id number] Glucose [Mass/Vol] 110 mg/dL Normal 82-115 [facility] ([place]) Comment on above: Performed By: #### B G #### [place] [id number] Potassium [Moles/Vol] 3.8 mmol/L Normal 3.5-5.0 [facility] [place] Comment on above: Performed By: #### B G #### [place] [id number] Sodium [Moles/Vol] 140 mmol/L Normal 136-145 [facility] ([place] Comment on above: Performed By: #### B G #### [place] [id number] Total Protein 5.7 G/dL Normal 5.7-8.2 [facility] [place] Comment on above: Result Comment: No te - New Reference Range in effect 20 Performed By: #### B G #### [address] [address] Urea nitrogen [Mass/Vol] 27.0 mg/dL High 8.0-22.0 [facility] [place] Comment [place] above: Performed By: #### B G #### [place] [id number] LABORATORYOrdered By: Ariadna Estes on 09-03-2023 Barometric Pressure 715 mm[Hg] Invalid Interpretation Code Auto Chem SS Base excess Calc (Bld) [Moles/Vol] 7.6 mmol/L Invalid Interpretation Code Auto Chem SS CO2 (Bld) [Partial pressure] 33.3 mm[Hg] Normal 32.0 - 46.0 mm Hg AH Auto Chem SS CO2 [Moles/Vol] 30.7 mmol/L High 22.0 - 30.0 mmol/L AH Auto Chem SS HCO3 (Bld) [Moles/Vol] 29.7 mmol/L High 21.0 - 29.0 mmol/L Auto Chem SS Oxygen (Bld) [Partial pressure] 65.0 mm[Hg] Low 74.0 - 108.0 mm Hg AH Auto Chem SS pH (Bld) 7.568 [pH] High 7.380 - 7.460 Auto Chem SS LABORATORYOrdered By: Hanh Quinn on 09-03-2023 Barometric Pressure 720 mm[Hg] Invalid Interpretation Code Auto Chem SS Base excess Calc (Bld) [Moles/Vol] 7.2 mmol/L Invalid Interpretation Code Auto Chem SS CO2 (Bld) [Partial pressure] 41.9 mm[Hg] Normal 32.0 - 46.0 mm Hg Auto Chem SS CO2 [Moles/Vol] 32.5 mmol/L High 22.0 - 30.0 mmol/L AH Auto Chem SS HCO3 (Bld) [Moles/Vol] 31.2 mmol/L High 21.0 - 29.0 mmol/L Auto Chem SS Oxygen (Bld) [Partial pressure] 86.0 mm[Hg] Normal 74.0 - 108.0 mm Hg AH Auto Chem SS pH (Bld) 7.490 [pH] High 7.380 - 7.460 Auto Chem SS LABORATORYOrdered By: SYSTEM SYSTEM on 09-03-2023 Albumin BCP dye [Mass/Vol] 2.8 G/dL Low 3.2 - 4.8 G/dL ADM SS Albumin/Globulin [Mass ratio] 1.0 {ratio} Normal 0.9 - 1.6 ratio ADM SS ALP [Catalytic activity/Vol] 98 U/L Normal 38 - 126 U/L ADM SS ALT No additional P-5'-P [Catalytic activity/Vol] 138 U/L High 10 - 49 U/L ADM SS AST [Catalytic activity/Vol] 92 U/L High 8 - 34 U/L ADM SS Bilirubin [Mass/Vol] 0.60 mg/dL Normal 0.20 - 1.20 mg/dL AH ADM SS Comment on above: Interpretive Data: U se of this assay is not recommended for patients undergoing treatment with eltrombopag due to the potential for falsely elevated results. Globulin 2.9 G/dL Normal 1.5 - 3.8 G/dL ADM SS Magnesium [Mass/Vol] 2.3 mg/dL Normal 1.6 - 2 .4 mg/dL ADM SS Protein [Mass/Vol] 5.7 G/dL Normal 5.7 - 8.2 G/dL ADM SS Comment on above: Interpretive Data: * *Note - New Reference Range in effect 20 Troponin I.cardiac DL <= 0.01 ng/mL [Mass/Vol] 1793.02 ng/L High 0.00 - 34.00 ng/L ADM SS Troponin I.cardiac DL <= 0.01 ng/mL [Mass/Vol] 2219.13 ng/L High 0.00 - 34.00 ng/L ADM SS LABORATORYOrdered By: Will Boss on 09-03-2023 Lactate [Moles/Vol] 1.6 mmol/L Normal 0.2 - 2. 0 mmol/L Auto Chem SS LACon 09-03-2023 Lactic Acid Lvl 1.6 mmol/L Normal 0.2-2.0 [facility] [place] Comment [place]: Performed By: #### B G #### [address] [address] MGon 09-03-2023 Magnesium [Mass/Vol] 2.3 mg/dL Normal 1.6-2.4 [facility] ([place] Comment on above: Performed By: #### B G #### [address] [address] TROPHSon 09-03-2023 Troponin I High Sensitivity 1793.02 ng/L High 0.00-34.00 [facility] [place] Comment on above: Performed By: #### B G #### [address] [address] Troponin I High Sensitivity 2219.13 ng/L High 0.00-34.00 [facility] [place] Comment on above: Performed By: #### B G #### [address] [address] .Auto Diffon 09-02-2023 Basophil, Absolute 0.0 10 3/mcL Normal 0.0-0.3 [facility] [place] Comment on above: Performed By: #### L AC #### [address] [address] Basophils/100 WBC (Bld) 0.6 % Normal 0.0-2.5 [facility] [place] Comment on above: Performed By: #### L AC #### [address] [address] Eosinophil, Absolute 0.0 10 3/mcL Normal 0.0-0.7 [facility] ([place] Comment on above: Performed By: #### L AC #### [address] [address] Eosinophils/100 WBC (Bld) 0.0 % Normal 0.0-6.0 [facility] [place] Comment on above: Performed By: #### L AC #### [address] [address] Lymphocyte, Absolute 0.6 10 3/mcL Low 0.9-4.3 [facility] ([place] Comment on above: Performed By: #### L AC #### [address] [address] Lymphocytes/100 WBC (Bld) 8.0 % Low 20.0-40.0 [facility] [place] Comment on above: Performed By: #### L AC #### [address] [address] Monocyte, Absolute 0.2 10 3/mcL Normal 0.1-1.4 [facility] [place] Comment on above: Performed By: #### L AC #### [address] [address] Monocytes/100 WBC (Bld) 2.7 % Normal 2.0-13.0 [facility] [place] Comment on above: Performed By: #### L AC #### [address] [address] Neutrophils/100 WBC (Bld) 88.7 % High 50.0-75.0 [facility] [place] Comment on above: Performed By: #### L AC #### [address] [address] Basophil, Absolute 0.0 10 3/mcL Normal 0.0-0.3 [facility] [place] Comment on above: Performed By: #### P HOS, TROPHS, MG, CBC, ADIFF, ANEU, MYCO, CMP, CAION, GFR ####[address] [address] Basophils/100 WBC (Bld) 0.4 % Normal 0.0-2.5 [facility] [place] Comment on above: Performed By: #### P HOS, TROPHS, MG, CBC, ADIFF, ANEU, MYCO, CMP, CAION, GFR ####[address] [address] Eosinophil, Absolute 0.0 10 3/mcL Normal 0.0-0.7 [facility] [place] Comment on above: Performed By: #### P HOS, TROPHS, MG, CBC, ADIFF, ANEU, MYCO, CMP, CAION, GFR ####[address] [address] Eosinophils/100 WBC (Bld) 0.0 % Normal 0.0-6.0 [facility] [place] Comment on above: Performed By: #### P HOS, TROPHS, MG, CBC, ADIFF, ANEU, MYCO, CMP, CAION, GFR ####[address] [address] Lymphocyte, Absolute 0.3 10 3/mcL Low 0.9-4.3 [facility] [place] Comment on above: Performed By: #### P HOS, TROPHS, MG, CBC, ADIFF, ANEU, MYCO, CMP, CAION, GFR ####[address] [address] Lymphocytes/100 WBC (Bld) 3.6 % Low 20.0-40.0 [facility] [place] Comment on above: Performed By: #### P HOS, TROPHS, MG, CBC, ADIFF, ANEU, MYCO, CMP, CAION, GFR ####[address] [address] Monocyte, Absolute 0.2 10 3/mcL Normal 0.1-1.4 [facility] [place] Comment on above: Performed By: #### P HOS, TROPHS, MG, CBC, ADIFF, ANEU, MYCO, CMP, CAION, GFR ####[address] [address] Monocytes/100 WBC (Bld) 1.9 % Low 2.0-13.0 [facility] [place] Comment [place] above: Performed By: #### P HOS, TROPHS, MG, CBC, ADIFF, ANEU, MYCO, CMP, CAION, GFR ####[address] [address] Neutrophils/100 WBC (Bld) 94.1 % High 50.0-75.0 [facility] [place] Comment [place] above: Performed By: #### P HOS, TROPHS, MG, CBC, ADIFF, ANEU, MYCO, CMP, CAION, GFR ####[address] [address] .GFRon 09-02-2023 GFR Non- >60 Normal [facility] [place] Comment on above: Result Comment: GFR Population mean for , Non- Americans Ages 20-29 = 116 mL/min/1.73 sq.m. Ages 30-39 = 107 mL/min/1.73 sq.m. Ages 40-49 = 99 mL/min/1.73 sq.m. Ages 50-59 = 93 mL/min/1.73 sq.m. Ages 60-69 = 85 mL/min/1.73 sq.m. Ages 70+ = 75 mL/min/1.73 sq.m. Chronic Kidney Disease: Less than 60 mL/min/1.73 square meters End Stage Renal Disease: Less than 15 mL/min/1.73 square meters Performed By: #### P HOS, TROPHS, MG, CBC, ADIFF, ANEU, MYCO, CMP, CAION, GFR ####[place] [address] GFR >60 Normal [facility] ([place] Comment on above: Result Comment: GFR Population mean for , Non- Americans Ages 20-29 = 116 mL/min/1.73 sq.m. Ages 30-39 = 107 mL/min/1.73 sq.m. Ages 40-49 = 99 mL/min/1.73 sq.m. Ages 50-59 = 93 mL/min/1.73 sq.m. Ages 60-69 = 85 mL/min/1.73 sq.m. Ages 70+ = 75 mL/min/1.73 sq.m. Chronic Kidney Disease: Less than 60 mL/min/1.73 square meters End Stage Renal Disease: Less than 15 mL/min/1.73 square meters Performed By: #### P HOS, TROPHS, MG, CBC, ADIFF, ANEU, MYCO, CMP, CAION, GFR ####[place] [address] .NEUABSon 09-02-2023 Neutrophil, Absolute 6.8 10 3/mcL Normal 2.3-8.1 [facility] [place] Comment on above: Performed By: #### L AC #### [place] [address] Neutrophil, Absolute 9.1 10 3/mcL High 2.3-8.1 [facility] ([place] Comment on above: Performed By: #### P HOS, TROPHS, MG, CBC, ADIFF, ANEU, MYCO, CMP, CAION, GFR ####[place] [address] APTTon 09-02-2023 aPTT Coag (Bld) [Time] 67.5 s High 25.0-35.0 [facility] [place] Comment on above: Result Comment: For Heparin anticoagulation therapy, the recommended therapeutic range is: 54-77 seconds (APTT Correlation with Anti-Xa therapeutic range of 0.3-0.7 units/ml). PLEASE REFERENCE THE PHARMACY PROTOCOL FOR DOSING. Heparin dose (APTT) Heparin IV [facility] aPTT Coag (Bld) [Time] 27.8 s Normal 25.0-35.0 [facility] [place] Comment on above: Result Comment: For Heparin anticoagulation therapy, the recommended therapeutic range is: 54-77 seconds (APTT Correlation with Anti-Xa therapeutic range of 0.3-0.7 units/ml). PLEASE REFERENCE THE PHARMACY PROTOCOL FOR DOSING. Heparin dose (APTT) Heparin IV [facility] [place] on 09-02-2023 Barometric Pressure 714 mmHg [facility] [place] Comment on above: Performed By: #### B G #### [address] [address] Base excess Calc (Bld) [Moles/Vol] 1.5 mmol/L Normal [facility] [place] Comment on above: Performed By: #### B G #### [address] [address] CO2 [Moles/Vol] 27.8 mmol/L Normal 22.0-30.0 [facility] [place] Comment on above: Performed By: #### B G #### [address] [address] HCO3 (Bld) [Moles/Vol] 26.5 mmol/L Normal 21.0-29.0 [facility] [place] Comment on above: Performed By: #### B G #### [address] [address] Oxygen (Bld) [Partial pressure] 130.5 mm[Hg] High 74.0-108.0 [facility] [place] Comment on above: Performed By: #### B G #### [address] [address] Oxygen saturation in Blood 98.7 % High 92.0-96.0 [facility] [place] Comment on above: Performed By: #### B G #### [address] [address] pCO2 43.2 mmHg Normal 32.0-46.0 [facility] [place] Comment on above: Performed By: #### B G #### [place] [address] pH (Bld) 7.406 [pH] Normal 7.380-7.460 [facility] [place] Comment on above: Performed By: #### B G #### [place] [address] CAIONon 09-02-2023 Calcium Ionized 0.99 mmol/L Low 1.12-1.32 [facility] [place] Comment on above: Performed By: #### P HOS, TROPHS, MG, CBC, ADIFF, ANEU, MYCO, CMP, CAION, GFR ####[place] [address] CBCon 09-02-2023 Erythrocyte distribution width (RBC) [Ratio] 14.4 % Normal 11.5-15.5 [facility] [place] Comment on above: Performed By: #### L AC #### [place] [address] Hematocrit (Bld) [Volume fraction] 39.9 % Normal 34.0-46.0 [facility] [place] Comment on above: Performed By: #### L AC #### [place] [address] Hgb 13.4 G/dL Normal 12.0-16.0 [facility] [place] Comment on above: Performed By: #### L AC #### [place] [address] MCH (RBC) [Entitic mass] 30.8 pg Normal 27.0-33.0 [facility] [place] Comment on above: Performed By: #### L AC #### [place] [address] MCHC 33.6 G/dL Normal 32.0-36.0 [facility] [place] Comment on above: Performed By: #### L AC #### [address] [address] MCV (RBC) [Entitic vol] 91.5 fL Normal 80.0-99.0 [facility] [place] Comment on above: Performed By: #### L AC #### [address] [address] Platelet 278 10 3/mcL Normal 150-450 [facility] [place] Comment on above: Performed By: #### L AC #### [address] [address] Platelet mean volume (Bld) [Entitic vol] 7.2 fL Normal 6.6-10.5 [facility] [place] Comment on above: Performed By: #### L AC #### [address] [address] RBC 4.36 10 6/mcL Normal 4.10-5.30 [facility] [place] Comment on above: Performed By: #### L AC #### [address] [address] WBC 7.7 10 3/mcL Normal 4.5-10.8 [facility] [place] Comment on above: Performed By: #### L AC #### [address] [address] Erythrocyte distribution width (RBC) [Ratio] 14.5 % Normal 11.5-15.5 [facility] [place] Comment on above: Performed By: #### P HOS, TROPHS, MG, CBC, ADIFF, ANEU, MYCO, CMP, CAION, GFR ####[address] [address] Hematocrit (Bld) [Volume fraction] 42.1 % Normal 34.0-46.0 [facility] [place] Comment on above: Performed By: #### P HOS, TROPHS, MG, CBC, ADIFF, ANEU, MYCO, CMP, CAION, GFR ####[address] [address] Hgb 13.8 G/dL Normal 12.0-16.0 [facility] [place] Comment on above: Performed By: #### P HOS, TROPHS, MG, CBC, ADIFF, ANEU, MYCO, CMP, CAION, GFR ####[place] [address] MCH (RBC) [Entitic mass] 30.3 pg Normal 27.0-33.0 [facility] [place] Comment on above: Performed By: #### P HOS, TROPHS, MG, CBC, ADIFF, ANEU, MYCO, CMP, CAION, GFR ####[place] [address] MCHC 32.9 G/dL Normal 32.0-36.0 [facility] [place] Comment on above: Performed By: #### P HOS, TROPHS, MG, CBC, ADIFF, ANEU, MYCO, CMP, CAION, GFR ####[place] [address] MCV (RBC) [Entitic vol] 92.3 fL Normal 80.0-99.0 [facility] [place] Comment on above: Performed By: #### P HOS, TROPHS, MG, CBC, ADIFF, ANEU, MYCO, CMP, CAION, GFR ####[place] [address] Platelet 314 10 3/mcL Normal 150-450 [facility] [place] Comment on above: Performed By: #### P HOS, TROPHS, MG, CBC, ADIFF, ANEU, MYCO, CMP, CAION, GFR ####[place] [address] Platelet mean volume (Bld) [Entitic vol] 7.3 fL Normal 6.6-10.5 [facility] [place] Comment on above: Performed By: #### P HOS, TROPHS, MG, CBC, ADIFF, ANEU, MYCO, CMP, CAION, GFR ####[place] [address] RBC 4.56 10 6/mcL Normal 4.10-5.30 [facility] [place] Comment on above: Performed By: #### P HOS, TROPHS, MG, CBC, ADIFF, ANEU, MYCO, CMP, CAION, GFR ####[address] [address] WBC 9.6 10 3/mcL Normal 4.5-10.8 [facility] [place] Comment on above: Performed By: #### P HOS, TROPHS, MG, CBC, ADIFF, ANEU, MYCO, CMP, CAION, GFR ####[address] [address] CMPon 09-02-2023 Albumin Level 3.3 G/dL Normal 3.2-4.8 [facility] [place] Comment on above: Performed By: #### P HOS, TROPHS, MG, CBC, ADIFF, ANEU, MYCO, CMP, CAION, GFR ####[place] [address] Albumin/Globulin [Mass ratio] 0.9 {ratio} Normal 0.9-1.6 [facility] [place] Comment on above: Performed By: #### P HOS, TROPHS, MG, CBC, ADIFF, ANEU, MYCO, CMP, CAION, GFR ####[address] [address] ALP [Catalytic activity/Vol] 130 U/L High 38-126 [facility] [place] Comment on above: Performed By: #### P HOS, TROPHS, MG, CBC, ADIFF, ANEU, MYCO, CMP, CAION, GFR ####[address] [address] ALT [Catalytic activity/Vol] 226 U/L High 10-49 [facility] [place] Comment on above: Performed By: #### P HOS, TROPHS, MG, CBC, ADIFF, ANEU, MYCO, CMP, CAION, GFR ####[address] [address] AST [Catalytic activity/Vol] 230 U/L High 8-34 [facility] [place] Comment on above: Performed By: #### P HOS, TROPHS, MG, CBC, ADIFF, ANEU, MYCO, CMP, CAION, GFR ####[address] [address] Bili Total 0.40 mg/dL Normal 0.20-1.20 [facility] ([place] Comment on above: Result Comment: Use of this assay is not recommended for patients undergoing treatment with eltrombopag due to the potential for falsely elevated results. Performed By: #### P HOS, TROPHS, MG, CBC, ADIFF, ANEU, MYCO, CMP, CAION, GFR ####[place] [address] BUN/Creatinine Ratio 25.6 ratio High 10.0-22.0 [facility] ([place]) Comment on above: Performed By: #### P HOS, TROPHS, MG, CBC, ADIFF, ANEU, MYCO, CMP, CAION, GFR ####[place] [address] Calcium [Mass/Vol] 8.0 mg/dL Low 8.7-10.4 [facility] ([place]) Comment on above: Performed By: #### P HOS, TROPHS, MG, CBC, ADIFF, ANEU, MYCO, CMP, CAION, GFR ####[place] [address] Chloride [Moles/Vol] 106 mmol/L Normal 98-110 [facility] ([place] Comment on above: Performed By: #### P HOS, TROPHS, MG, CBC, ADIFF, ANEU, MYCO, CMP, CAION, GFR ####[place] [id number] CO2 [Moles/Vol] 28 mmol/L Normal 22-32 [facility] ([place] Comment on above: Performed By: #### P HOS, TROPHS, MG, CBC, ADIFF, ANEU, MYCO, CMP, CAION, GFR ####[place] [address] Creatinine [Mass/Vol] 0.78 mg/dL Normal 0.50-1.20 [facility] ([place]) Comment on above: Performed By: #### P HOS, TROPHS, MG, CBC, ADIFF, ANEU, MYCO, CMP, CAION, GFR ####[place] [address] Electrolyte Balance 6.0 mEq/L Normal 4.0-15.0 [facility] Comment on above: Performed By: #### P HOS, TROPHS, MG, CBC, ADIFF, ANEU, MYCO, CMP, CAION, GFR ####[address] [address] Globulin 3.5 G/dL Normal 1.5-3.8 [facility] ([place] Comment on above: Performed By: #### P HOS, TROPHS, MG, CBC, ADIFF, ANEU, MYCO, CMP, CAION, GFR ####[address] [address] Glucose [Mass/Vol] 165 mg/dL High 82-115 [facility] ([place]) Comment on above: Performed By: #### P HOS, TROPHS, MG, CBC, ADIFF, ANEU, MYCO, CMP, CAION, GFR ####[address] [address] Potassium [Moles/Vol] 2.9 mmol/L Low 3.5-5.0 [facility] ([place] Comment on above: Performed By: #### P HOS, TROPHS, MG, CBC, ADIFF, ANEU, MYCO, CMP, CAION, GFR ####[address] [address] Sodium [Moles/Vol] 140 mmol/L Normal 136-145 [facility] ([place]) Comment on above: Performed By: #### P HOS, TROPHS, MG, CBC, ADIFF, ANEU, MYCO, CMP, CAION, GFR ####[address] [address] Total Protein 6.8 G/dL Normal 5.7-8.2 [facility] ([place] Comment on above: Result Comment: No te - New Reference Range in effect 20 Performed By: #### P HOS, TROPHS, MG, CBC, ADIFF, ANEU, MYCO, CMP, CAION, GFR ####[address] [address] Urea nitrogen [Mass/Vol] 20.0 mg/dL Normal 8.0-22.0 [facility] ([place] Comment on above: Performed By: #### P HOS, TROPHS, MG, CBC, ADIFF, ANEU, MYCO, CMP, CAION, GFR ####[place] [address] HEPACon 09-02-2023 Hep A IgM Ab Non-Reactive Normal Non-Reactiv e [facility] ([place] Comment on above: Performed By: #### L AC #### [place] [address] Hep A IgM Ab Int Normal [facility] ([place] Comment on above: Result Comment: No s erological evidence of a current Hepatitis A infection. See Interp Performed By: #### L AC #### [place] [address] Hep B Core IgM Ab Non-Reactive Normal Non-Reacti v [facility] ([place]) Comment on above: Performed By: #### L AC #### [place] [address] Hep B Core IgM Ab Int Normal [facility] ([place]) Comment on above: Result Comment: Samp les with a value < 0.80 Index are considered nonreactive (negative) for IgM antibodies to hepatitis B core antigen. See Interp Performed By: #### L AC #### [place] [address] Hep C Ab Non-Reactive Normal Non-Reactiv [facility] ([place]) Comment on above: Performed By: #### L AC #### [place] [address] Hep C Ab Int Normal [facility] ([place] Comment on above: Result Comment: Nonr eactive: Samples with a value < 0.80 are considered nonreactive (negative) for antibodies to HCV. A negative test result does not exclude the possibility of exposure to or infection with HCV. HCV antibodies may be undetectable in some stages of the infection and in some clinical conditions. See Interp Performed By: #### L AC #### [place] [address] Hep B Surf Ag Non-Reactive Normal Non-Reactiv e [facility] ([place] Comment on above: Performed By: #### L #### [facility] [address] [place] [address] LABORATORYOrdered By: Ariadna Estes on 09-02-2023 Lactate [Moles/Vol] 1.7 mmol/L Normal 0.2 - 2. 0 mmol/L AH Auto Chem SS Lactate [Moles/Vol] 2.8 mmol/L High 0.2 - 2. 0 mmol/L AH Auto Chem SS Natriuretic peptide.B prohormone N-Terminal [Mass/Vol] 5863 pg/mL High 0 - 900 pg/mL AH Auto Chem SS Comment on above: Interpretive Data: N T-proBNP results of less than 300 pg/mL effectively rules out acute congestive heart failure with 99% negative predictive value. LABORATORYOrdered By: SYSTEM SYSTEM on 09-02-2023 Troponin I.cardiac DL <= 0.01 ng/mL [Mass/Vol] 3010.17 ng/L High 0.00 - 34.00 ng/L AH ADM SS HBV surface Ag IA Ql Non-Reactive (09/02/23 1:49 PM) Normal Non-Reactiv e AH ADM SS Albumin BCP dye [Mass/Vol] 3.3 G/dL Normal 3.2 - 4.8 G/dL AH ADM SS Albumin/Globulin [Mass ratio] 0.9 {ratio} Normal 0.9 - 1.6 ratio AH ADM SS ALP [Catalytic activity/Vol] 130 U/L High 38 - 126 U/L AH ADM SS ALT No additional P-5'-P [Catalytic activity/Vol] 226 U/L High 10 - 49 U/L AH ADM SS AST [Catalytic activity/Vol] 230 U/L High 8 - 34 U/L AH ADM SS Bilirubin [Mass/Vol] 0.40 mg/dL Normal 0.20 - 1.20 mg/dL AH ADM SS Comment on above: Interpretive Data: U se of this assay is not recommended for patients undergoing treatment with eltrombopag due to the potential for falsely elevated results. Globulin 3.5 G/dL Normal 1.5 - 3.8 G/dL AH ADM SS Phosphate [Mass/Vol] 3.6 mg/dL Normal 2.4 - 5 .1 mg/dL AH ADM SS Comment on above: Interpretive Data: * *Note - New Reference Range in effect 20 Protein [Mass/Vol] 6.8 G/dL Normal 5.7 - 8.2 G/dL ADM SS Comment on above: Interpretive Data: * *Note - New Reference Range in effect 20 LABORATORYOrdered By: Hanh Quinn on 09-02-2023 HAV IgM IA Ql Non-Reactive (09/02/23 1:49 PM) Normal Non-Reactiv e ADM SS HAV IgM IA Ql No serological evide nce of a current Hepatitis A infection. Invalid Interpretation Code Chemistry S HBV core IgM IA Ql Non-Reactive (09/02/23 1:49 PM) Normal Non-Reactiv e ADM SS HBV core IgM IA Ql Samples with a value < 0.80 Index are considered nonreactive (negative) for IgM antibodies to hepatitis B core antigen. Invalid Interpretation Code Chemistry S HCV Ab IA Ql Non-Reactive (09/02/23 1:49 PM) Normal Non-Reactiv e ADM SS HCV Ab IA Ql Nonreactive: Samples with a value < 0.80 are considered nonreactive (negative) for antibodies to HCV.A negative test result does not exclude the possibility of exposure to or infection with HCV. HCV antibodies may be undetectable in some stages of the infection and in some clinical conditions. Invalid Interpretation Code Chemistry S Barometric Pressure 714 mm[Hg] Invalid Interpretation Code AH Auto Chem SS Base excess Calc (Bld) [Moles/Vol] 1.5 mmol/L Invalid Interpretation Code AH Auto Chem SS CO2 (Bld) [Partial pressure] 43.2 mm[Hg] Normal 32.0 - 46.0 mm Hg AH Auto Chem SS CO2 [Moles/Vol] 27.8 mmol/L Normal 22.0 - 30.0 mmol/L AH Auto Chem SS HCO3 (Bld) [Moles/Vol] 26.5 mmol/L Normal 21.0 - 29.0 mmol/L AH Auto Chem SS Oxygen (Bld) [Partial pressure] 130.5 mm[Hg] High 74.0 - 108.0 mm Hg AH Auto Chem SS pH (Bld) 7.406 [pH] Normal 7.380 - 7.460 AH Auto Chem SS Calcium.ionized (Bld) [Mass/Vol] 0.99 mmol/L Low 1.12 - 1.32 mmol/L Auto Chem SS LABORATORYOrdered By: Viktor Singletary on 09-02-2023 PT Coag (PPP) [Time] 11.8 s Normal 9.0 - 1 4.2 seconds Coagulation S Comment on above: Interpretive Data: E ffective 05/06/08, Protime results may be affected by some antibiotics (i.e. Ciprofloxacin, Azithromycin, Bactrim) which may potentiate the action of oral anticoagulants, with further increases in Protime/INR. PT International Ratio 1.0 ratio Invalid Interpretation Code Coagulation S Comment on above: Interpretive Data: T jt [employer] (CHEST, 1992, 102:312S-25S) recommended therapeutic range for oral anticoagulant therapy is: LOW RISK: Prophylaxis of venous thrombosis INR: 2.0-3.0 Treatment of pulmonary embolism 2.0-3.0 Prevention of systemic embolism 2.0-3.0 HIGH RISK: Mechanical prosthetic valves 2.5-3.5 LABORATORYOrdered By: Agnieszka cox on 09-02-2023 M. pneumoniae IgM IA Ql (S) Negative 17 (09/02/23 6:59 AM) Normal Man Viro/Sero SS Comment on above: Interpretive Data: I NTERPRETATION OF MYCOPLASMA IgM: Negative: IgM to M. pneumoniae Absent, or at levels below the assay limit of detection. Positive: IgM to M. pneumoniae Present. Invalid: Test results are invalid due to invalid internal control. Assay was performed in duplicate. Repeat testing is suggested if clinically indicated. LACon 09-02-2023 Lactic Acid Lvl 1.7 mmol/L Normal 0.2-2.0 [facility] ([place] Comment on above: Performed By: #### L AC ####[facility] [place] [address] Lactic Acid Lvl 2.8 mmol/L High 0.2-2.0 [facility] ([place] Comment on above: Performed By: #### L AC #### [facility] [address] [place] [address] Lactic Acid Lvl 2.5 mmol/L High 0.2-2.0 [facility] ([place] Comment on above: Performed By: #### L AC #### [facility] [address] [place] [address] Lactic Acid Lvl 1.8 mmol/L Normal 0.2-2.0 [facility] ([place] Comment on above: Performed By: #### L AC ####[facility] [place] [address] MGon 09-02-2023 Magnesium [Mass/Vol] 2.4 mg/dL Normal 1.6-2.4 [facility] ([place]) Comment on above: Performed By: #### P HOS, TROPHS, MG, CBC, ADIFF, ANEU, MYCO, CMP, CAION, GFR ####[facility] [place] [address] No Panel Informationon 09-02 Microscopic examination of blood, culture Culture has been received in lab and is no growth to date. Routine cultures are held for 5 days. [facility] Culture Urine No growth at 48 hours. [facility] No Panel InformationOrdered By: Sandy Davis on 09-02-2023 Culture Respiratory with Gram Stain Normal respiratory renu present at 48 hours Sensitivity testing not indicated [facility] Comment on above: Requests for Mycopla sma, Legionella, Fungi, Mycobacteria, Chlamydia, and Viruses require ordering of those individual tests. GS Rare Polymorphonucle ar cells Rare Gram Positive Cocci Rare Gram Positive Rods [facility] Comment on above: Requests for Mycopla sma, Legionella, Fungi, Mycobacteria, Chlamydia, and Viruses require ordering of those individual tests. PBNPon 09-02-2023 Natriuretic peptide B (Bld) [Mass/Vol] 5863 pg/mL High 0-900 [facility] ([place]) Comment on above: Result Comment: NT-p roBNP results of less than 300 pg/mL effectively rules out acute congestive heart failure with 99% negative predictive value. Performed By: #### P BNP #### [facility] [address] [place] [address] PHOSon 09-02-2023 Phosphate [Mass/Vol] 3.6 mg/dL Normal 2.4-5.1 [facility] ([place]) Comment on above: Result Comment: No te - New Reference Range in effect 20 Performed By: #### P HOS, TROPHS, MG, CBC, ADIFF, ANEU, MYCO, CMP, CAION, GFR ####[place] [id number] [address] [place] [address] PROon 09-02-2023 INR Coag (PPP) [Relative time] 1.0 {INR} Normal [facility] ([place] Comment on above: Result Comment: [employer] (CHEST, 1992, 102:312S-25S) recommended therapeutic range for oral anticoagulant therapy is: LOW RISK: Prophylaxis of venous thrombosis INR: 2.0-3.0 Treatment of pulmonary embolism 2.0-3.0 Prevention of systemic embolism 2.0-3.0 HIGH RISK: Mechanical prosthetic valves 2.5-3.5 Performed By: #### L AC #### [place] [address] PT Coag (PPP) [Time] 11.8 s Normal 9.0-14.2 [facility] ([place] Comment on above: Result Comment: Effe ctive 05/06/08, Protime results may be affected by some antibiotics (i.e. Ciprofloxacin, Azithromycin, Bactrim) which may potentiate the action of oral anticoagulants, with further increases in Protime/INR. Performed By: #### L AC #### [place] [address] TROPHSon 09-02-2023 Troponin I High Sensitivity 3010.17 ng/L High 0.00-34.00 [facility] ([place] Comment on above: Performed By: #### L AC #### [address] [address] Troponin I High Sensitivity 2152.97 ng/L High 0.00-34.00 [facility] ([place] Comment on above: Performed By: #### T ALFIE ####[address] [address] Troponin I High Sensitivity 1582.01 ng/L High 0.00-34.00 [facility] ([place] Comment on above: Performed By: #### L AC #### [place] [id number] [place] [address] Troponin I High Sensitivity 926.56 ng/L High 0.00-34.00 [facility] ([place] Comment on above: Performed By: #### P HOS, TROPHS, MG, CBC, ADIFF, ANEU, MYCO, CMP, CAION, GFR ####[facility] [place] [address] US ABDOMEN LIMITEDon 023 US ABDOMEN LIMITED ORIGINAL EXAMINATION: LIMITED ABDOMINAL [id number]/11/2023 12:19 pm COMPARISON: None HISTORY: ORDERING SYSTEM PROVIDED HISTORY: Reason for Exam: Elevated Liver Enzymes FINDINGS: The liver is normal in size and echogenicity. No focal lesion or bile duct dilatation. The common duct is 3.3 mm at the tae hepatis. The main portal vein is patent with antegrade flow and no thrombus. The gallbladder contains no stone and shows borderline wall thickening. There is trace pericholecystic fluid and some fluid around the liver. No stones. Negative sonographic Schaefer's sign. The visualized pancreas is normal but some portions are obscured by bowel gas. The right kidney shows no obstruction but this is not adequately visualized or evaluated due to artifacts. Small right pleural effusion. IMPRESSION: Sonographically normal liver. Trace perihepatic and pericholecystic fluid. Small right pleural effusion. Interpreted by: Doug Carmona MD Preliminary Report By: Doug Carmona MD Electronically signed By Doug Carmona MD Dictated Date: 09/02/2023 2:25:37 PM Prelim Date: 09/02/2023 2:27:43 PM Sign Date: 09/02/2023 2:27:43 PM Ordering Provider: FRANCESCA Soto [facility] ([place]) XR CHEST 1 VIEWon 09-02-2023 XR CHEST 1 VIEW ORIGINAL EXAMINATION: ONE XRAY VIEW OF THE CHEST 09/02/2023 7:38 am COMPARISON: 06/20/2011. HISTORY: ORDERING SYSTEM PROVIDED HISTORY: Reason for Exam: Endotracheal tube placement og placement FINDINGS: Endotracheal tube with tip projecting 6.8 cm above the level the steve. An enteric tube courses midline, crosses the diaphragm with side port and tip projecting over the expected gastric body. Stable cardiomediastinal silhouette. The lungs are hyperinflated with scattered radiolucencies in interstitial prominence which is favored chronic. There appears to be flattening of the diaphragms. Some peribronchial cuffing is noted. No pleural effusion or pneumothorax. No focal consolidation. Degenerative changes of the spine. IMPRESSION: Support devices as above. Emphysematous changes. No focal consolidation or edema. I have personally reviewed the images of this examination and agree with the resident's findings and interpretation. Interpreted by: Shahida Galicia MD Preliminary Report By: Paolo Sidhu Electronically signed By Shahida Galicia MD Dictated Date: 09/02/2023 7:43:59 AM Prelim Date: 09/02/2023 7:48:05 AM Sign Date: 09/02/2023 8:06:12 AM Ordering Provider: FRANCESCA Soto [facility] ([place]) Low Dose CT Lung Screeningon 06-23-[address] Lung Screening [facility] [address] [place] [address] Lung Screening MR#: [id number] Acct: [id number] Name: ZABRINA HSU Rep #: [id number] : 1955 F 66 From: Stephon Levine MD PCP: SEUN Alvarez Status: REG CLI Study: Low Dose CT Lung Screening Date of Exam: 06/23 Exam# [id number] Ordering Dr: Eleazar Valle DO STUDY: LOW DOSE CT LUNG CANCER SCREENING REASON FOR EXAM: Female, 66 years old. 1 pack per day smoker x46 years RADIATION DOSAGE (If Supplied By Facility): CTDIvol = ( 2.01 ) mGy, DLP = ( 67.71 ) mGycm TECHNIQUE: No contrast was administered. Low dose technique was utilized (average mAS-38 and kVp 120). 1.25 mm axial source images with a slice interval of 1.25-mm were reconstructed in lung windows. 2.5 mm axial source images with a slice interval of 2.5-mm were reconstructed in lung windows. 5.0 mm axial source images with a slice interval of 5.0-mm were reconstructed in soft tissue windows. Nodule measured using lung windows on PACS and/or independent workstation with automated measurement of minimum and maximum diameter. Nodule measurement reported as average diameter rounded to the nearest whole number. Growth is defined as an increase ins size of greater than 1.5 mm. COMPARISON: 08/16/2019 FINDINGS: There is underlying emphysema with chronic interstitial changes in both lung lr. Nonspecific pleural thickening noted in the apices and in both hemithoraces. There is no organized infiltrate or effusion. Stable micronodules noted in the right lower lobe unchanged from the previous study. These measure between 3 and 4 mm. Since they are unchanged over a two-year span, no specific follow-up is needed. There are calcified coronary vessels Bony structures show extensive degenerative change CT/Low Dose CT Lung Screening IMPRESSION: Lung-RADS category 2 - Continue annual screening with LDCT in 12 months. IMPORTANT NOTES FOR USE: ACR Lung-RADS Version 1.1 Assessment Categories Release Date: 2018 Category: Coded 0-4 bases on nodule(s) with highest degree of suspicion. Negative screen is defined as categories 1 and 2; a positive screen is defined as categories 3 and 4. Category 3 and 4A nodules that are unchanged on interval CT should be coded as category 2, and individuals returned to screening in 12 months. Category 4X: Category 3 or 4 nodules with additional imaging findings that increase the suspicion of lung cancer, such as spiculation, GGN that doubles in size in 1 year, enlarged lymph notes, etc. Category Modifiers: S (significant finding unrelated to lung cancer) Electronically Signed: Aleksandr Levine MD at 17:37 EDT , Service support , CC: SEUN Ozuna; Dr. Eleazar Valle, [place]: Signed Normal [facility] 12 Lead EKG performed by [facility] on 06-16-2021 12 Lead EKG performed by [facility] [address] [place] [address] 12 Lead EKG performed by [facility] 06/16/21 1441 MR#: [id number] Acct: [id number] Name: ZABRINA HSU Rep #: [id number] : 1955 66 From: Paul Chawla MD Attending Dr: Dr. Paul Chawla MD Status: DEP A MB Ordering Dr: Paul Chawla MD Date: 06/16/21 Location: [facility] Sex: F C Admitted: BMS/12 Lead EKG performed by [facility] ECG Report Interpretation ---Sinus Rhythm WITHIN NORMAL LIMITSElectronically signed on 06/17/2021 at 08:45 by Paul Chawla [employer] Version [id number] 06/17/21 0847 Date Paul Chawla MD CC: SEUN Ozuna Date Dictated: 06/16/21 1441 Date Transcribed: 06/16/211440 [place]: [place] Signed Normal [facility] Cardiology Visit Reporton Cardiology Visit Report [facility] [address] [place], [place] [address] OFFICE VISIT Date of Service: 06/16/21 MR#: [id number] Acct: [id number] Name: ZABRINA HSU Rep #: [id number] : 1955 Provider: Dr. Paul Chawla MD Age/Sex: 66/F Location: [facility] Status: Signed [facility] History of Present Illness Details: Pleasant 66-year-old lady with a previous cardiac history significant for apical variant of hypertrophic cardiomyopathy per MRI in 2017. She also has a history of coronary disease status post angioplasty and stenting with 3 stents noted in the right coronary artery and a stent noted in the left anterior descending artery. She denies any chest pain or shortness of breath or paroxysmal nocturnal dyspnea or pedal edema she tells me that she is scheduled to undergo cataract surgery. She was asked to present here for cardiac evaluation due to her previous cardiac history. As noted above she denies any chest pain shortness of breath paroxysmal nocturnal dyspnea or pedal edema she has had episodes of hypertension noted. She has been on medication for which she has been compliant. Her renal function has been normal. In 2017 she underwent EP testing which demonstrated normal sinus node function with dual AV slim physiology and no evidence of inducible AV reentrant tachycardia. She appears to have done quite well since her evaluation in December 2016. Her physical exam demonstrates clear lung lr regular rate and rhythm no pedal edema her most recent lipid profile demonstrated a total cholesterol of 222 HDL of 60 and LDL of 140. Her EKG demonstrates normal sinus rhythm with a rate of 60 bpm. Intake Vital Signs 06/16/21 14:40 Height 5 ft 4 in Weight: 106 lb BMI 18.1 BP 217/77 H Respiration 18 Pulse 64 Pulse Oximetry (%) 96 Intake Visit Reasons: PCP ref'd for pre-op Allergies No Known Allergies Allergy (Unverified 06/16/21 14:41) Medications aspirin 81 mg tablet,delayed release 81 mg PO DAILY 07/08/19 [History Confirmed 06/16/21] atorvastatin 40 mg tablet 40 mg PO QHS PRN 07/08/19 [History Confirmed 06/16/21] nitroglycerin 0.4 mg sublingual tablet 0.4 mg SUBLINGUAL Q5-15M PRN 07/08/19 [History Confirmed 06/16/21] oxybutynin chloride 10 mg tablet,extended release 24 hr 10 mg PO DAILY 07/08/19 [History Confirmed 06/16/21] venlafaxine 75 mg tablet 75 mg PO BID 07/08/19 [History Confirmed 06/16/21] albuterol sulfate 90 mcg/actuation aerosol inhaler 2 puff INHALATION Q4H PRN #8.5 g 12/23/20 [Rx Confirmed 06/16/21] brimonidine 0.2 % eye drops ml OPHTHALMIC (EYE) 06/16/21 [History Confirmed 06/16/21] dorzolamide 2 % eye drops 1 drp OPHTHALMIC (EYE) TID ml 06/16/21 [History Confirmed 06/16/21] lisinopril 20 mg tablet 20 mg PO DAILY #90 tab 06/16/21 [Rx Confirmed 06/16/21] Ejection fraction %: 65 to 70 PFSH Medical History Anxiety Apical variant hypertrophic cardiomyopathy Atherosclerotic heart disease of [place] coronary artery without angina pectoris Depression Essential hypertension Myocardial fibrosis Non-rheumatic mitral regurgitation Pulmonary hypertension Pure hypercholesterolemia Surgical History History of coronary artery stent placement (01/02/17) History of hysterectomy Family History Mother Diabetes Social History Tobacco: How many years used: 46 second hand exposure: Yes alcohol intake: never substance use type: does not use caffeine: Yes Type: coffee ROS Const Const: Positive for other (continues to smoke); Negative for fatigue, weakness, headache(s), frequent falls, difficulty sleeping or excessive sweating Eyes Eyes: Negative for loss of peripheral vision, transient loss of vision, blurry vision, double vision or tunnel vision ENT ENT: Negative for headache(s), dizziness, Nosebleed/epistaxis or balance problems Cardio Chest Pain: No Palpitations: No Edema: None Muscle aches with walking: None Resp Respiratory: Negative for SOB with activity, SOB at rest, SOB orthopnea SOB lying down, Cough or paroxysmal nocturnal dyspnea GI GI: Negative nausea, vomiting, heartburn or black,tarry stools : Negative for hematuria Musc Musc: Negative for muscle aches/ myalgia, muscle weakness, joint pain or balance problems Skin Skin: Negative non-healing lesions, rash or unusual bruising Neuro Neuro: Positive for lightheadedness (occasionally when changing positions); Negative for dizziness, near syncope, syncope, orthostatic symptoms, frequent falls, headache(s), weakness, blurry vision, double vision or lack of coordination Fidel Hematologic/Lymphatic: Negative for eas (more content not included)... Normal [facility] [facility] 6 Minute Walk Teston 021 6 Minute Walk Test y [facility] Pulmonary Services/Neurology [address] [place] [address] MR#: [id number] Acct: [id number] Name: ZABRINA HSU Rep #: [id number] : 1955 65 From: Eleazar Valle DO Referring Dr: Eleazar Valle DO Status: REG CLI Location: PSN Date: Sex: F C PSN 6 Minute Walk Test - 6 Minute Walk Test 6 Minute Walk Test: 6 Minute Walk Test PSN:6-Minute Walk Test Start: 01/26/21 11:33 Freq: Status: Active Protocol: [id number] Document 01/26/21 11:15 HJ (Rec: 01/26/21 11:36 [id number]) 6 Minute Walk Test Date Performed 01/26/21 Time Performed 11:15 Height 5 ft 4 in Weight: 109 lb Weight in Pounds 109.[address]: Eleazar Valle FIO2 (% Oxygen) 21 Assistive device used: None Pre-test Oxygen Delivery Method Room Air Pulse Ox (%) 96 Pulse Rate (60-100 beats/min) 70 Dyspnea Deb Scale (0-10) 0 Exertion Deb Scale (6-20) 6 1st minute Oxygen Delivery Method Room Air Pulse Ox (%) 95 Pulse Rate (60-100 beats/min) 76 2nd minute Oxygen Delivery Method Room Air Pulse Ox (%) 95 Pulse Rate (60-100 beats/min) 83 3rd minute Oxygen Delivery Method Room Air Pulse Ox (%) 94 Pulse Rate (60-100 beats/min) 83 4th minute Oxygen Delivery Method Room Air Pulse Ox (%) 95 Pulse Rate (60-100 beats/min) 76 5th minute Oxygen Delivery Method Room Air Pulse Ox (%) 96 Pulse Rate (60-100 beats/min) 82 6th minute Oxygen Delivery Method Room Air Pulse Ox (%) 96 Pulse Rate (60-100 beats/min) 81 Post-test Oxygen Delivery Method Room Air Pulse Ox (%) 97 Pulse Rate (60-100 beats/min) 72 Dyspnea Deb Scale (0-10) 1 Exertion Deb Scale (6-20) 11 Full Laps Walked 16 Partial Lap, Number of Tiles Walked 0 Total Distance Walked (ft) 944 - Interpretation Interpretation: The patient ambulated 944 feet over the course of 6 minutes beginning on room air without assistive devices or breaks. Pretesting oxygen saturation was noted to be 96% on room air. With ambulation, the della oxygen saturation was 94%. There was no significant exertional oxygen desaturation. - Recommendations Recommendations: There is no indication for the use of supplemental oxygen at this time. 01/26/21 1246 Date Eleazar Valle DO CC: Date Dictated: 01/26/21 1245 Date Transcribed: 01/26/211244 Roasterman: Dr. Eleazar Valle DO Signed Normal [facility] Pulmonary Function Teston Pulmonary Function Test [facility] Pulmonary Services/Neurology [address] [place] [address] MR#: [id number] Acct: [id number] Name: ZABRINA HSU Rep #: [id number] : 1955 65 From: Eleazar Valle DO Referring Dr: Eleazar Valle DO Status: REG CLI Location: [facility] Date: 01/25/21 Sex: F C INTRODUCTION: The patient is a 65-year-old female that presents for pulmonary function studies secondary to a diagnosis of COPD. Respiratory therapy reports good patient effort. Bronchodilators were used during testing. INTERPRETATION: Forced expiration spirometry demonstrates the presence of a mild large airways obstructive ventilatory defect. There was no significant response to aerosolized bronchodilators. Spirograms are of good quality but do not plateau indicating slow emptying of the lungs. Body plethysmography was performed and revealed an elevated RV to 151% of predicted, indicative of underlying air trapping. Diffusing capacity by single breath CO is mildly reduced at 65% of predicted. IMPRESSION: Irreversible mild large airways obstructive ventilatory defect with associated air trapping and mild reduction in diffusing capacity. 01/26/21 0655 Date Eleazar Valle DO CC: SEUN Ozuna; Dr. Eleazar Valle DO Date Dictated: 01/26/2153 Date Transcribed: 01/26/21652 Roasterman: RACHANA Signed Normal [facility] Pulmonary Visit Reporton Pulmonary Visit Report [facility] [place] [address] [place] [address] OFFICE VISIT Date of Service: 12/23/20 MR#: [id number] Acct: [id number] Name: ZABRINA HSU Rep #: [id number] : 1955 Provider: Dr. Eleazar Valle DO Age/Sex: 65/F Location: [facility] Status: Signed Assessment Plan 1. COPD (chronic obstructive pulmonary disease) J44.9 Plan The patient's last pulmonary function studies from 2019 revealed evidence of a mild large airways obstructive ventilatory impairment. The patient is relatively asymptomatic from a respiratory perspective, only utilizing albuterol on an as-needed basis at her baseline. However, given that the patient has continued to smoke, we will plan to obtain repeat pulmonary function studies prior to her follow-up office visit. Orders Orders: Pulmonary Function Test (Comp) Today Simple Pulmonary Exercise Test Today 2. Nicotine dependence, cigarettes, uncomplicated F17.210 Plan I personally spent 4 minutes discussing the deleterious effects of continued tobacco use with the patient, including modalities which could be utilized to achieve a smoke-free lifestyle. I have determined that the patient is eligible for a low-dose CT scan based on age, absence of signs or symptoms of lung cancer, and total pack years. The patient and I engaged in shared decision making, including the use of one or more decision aids, to include benefits, harms, follow-up diagnostic testing, over diagnosis, false positive rate, and total radiation exposure. The patient understands and feels comfortable with proceeding with testing. Orders Orders: Low Dose CT Lung Screening Today Pulmonary Function Test (Comp) Today Simple Pulmonary Exercise Test Today Plan Detail Other Orders Orders: Smoking Cessation Today Other Medications New: albuterol sulfate 90 mcg/actuation (Ventolin HFA) 2 puffs inhalation Q4H PRN 8.5 grams 6RF shortness of breath or wheezing Additional Comments I spent 23 minutes today reviewing labs, records and history. Time includes coordination of care and interpretation of tests. This also includes time that I spent with the patient for the exam, formulation of treatment plan, patient education, as well as documenting clinical information. Follow Up 6 Months (CSM) HPI HPI Comments Details: The patient is a 65-year-old female who presents to the clinic today for a routine scheduled follow-up office visit. If you recall, the patient has a known history of coronary artery disease and tobacco dependency. She has an extensive smoking history of 1.5 packs/day x 40 years. She is now currently smoking 1 pack of cigarettes daily. 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 The patient has lived in [place] her entire life. She does currently keep one dog and 2 cats as pets in her home environment. Pulmonary function studies completed in July 2019 revealed evidence of an irreversible mild large airways obstructive ventilatory defect. A 6-minute walk test was also completed at that time and revealed a della oxygen saturation of 93% with exertion. Low-dose CT lung completed in July 2019 revealed evidence of several subcentimeter pulmonary nodules the largest of which measured 5 mm in the right lower lobe. Today, the patient reports overall stability in her breathing quality. She is currently only utilizing albuterol on an as-needed basis for symptom relief of her dyspnea. She reports that on average she utilizes her rescue inhaler 1-2 times per week. She is not currently on a maintenance inhaler regimen. She denies any chest tightness or wheezing. She does have a chronic, productive cough. Her weight has been relatively stable. Intake Vital Signs 12/23/20 Height 5 ft 4 in 12/23/20 Weight: 109 lb 12/23/20 BMI 18.7 12/23/20 BP 197/75 H 12/23/20 Blood Pressure Location Lt brachial 12/23/20 Position Sitting 12/23/20 Respiration 18 12/23/20 Pulse 71 12/23/20 Pulse Source Monitor 12/23/20 Temp 97.5 F L 12/23/20 Temperature Source Tympanic 12/23/20 Pulse Oximetry (%) 97 12/23/20 Oxygen Delivery Method room air Intake Visit Reasons: fu copd Allergies No Known Allergies Allergy (Unverified 12/23/20 12:53) Medications aspirin 81 mg tablet,delayed release 81 mg PO DAILY 07/08/19 [History Confirmed 12/23/20] atorvastatin 40 mg tablet 40 mg PO QHS PRN 07/08/19 [History Confirmed 12/23/20] lisinopril 5 mg tablet 5 mg PO DAILY 07/08/19 [History Confirmed 12/23/20] nitroglycerin 0.4 mg sublingual tablet 0.4 mg SUBLINGUAL Q5-15M PRN 07/08/19 [History Confirmed 12/23/20] oxybutynin chloride 10 mg tablet,extended release 24 hr 10 mg PO DAILY 07/08/19 [History Confirmed 12/23/20] venlafaxine 75 mg tablet 75 mg PO (more content not included)... Normal [facility] Coronavirus 2019on 1 COVID 19 Result [employer] Normal Negative for COVID19 (SARS CoV2) by PCR. [facility] Comment on above: Result Comment: Nega tive for This test was developed and its performance characteristics determined by [facility] [place]. This test has been authorized by FDA under an Emergency Use Authorization (EUA). This test has been validated in accordance with the FDA's Guidance Document Policy for Diagnostics Testing in Laboratories Certified to Perform High Complexity Testing under CLIA prior to Emergency use Authorization for Coronavirus Disease 2019 during the Public Health Emergency issued on December 21, 2019. COVID19 (SARS This test was developed and its performance characteristics determined by [facility] [place]. This test has been authorized by FDA under an Emergency Use Authorization (EUA). This test has been validated in accordance with the FDA's Guidance Document Policy for Diagnostics Testing in Laboratories Certified to Perform High Complexity Testing under CLIA prior to Emergency use Authorization for Coronavirus Disease 2019 during the Public Health Emergency issued on December 21, 2019. CoV2) by PCR. This test was developed and its performance characteristics determined by [facility] [place]. This test has been authorized by FDA under an Emergency Use Authorization (EUA). This test has been validated in accordance with the FDA's Guidance Document Policy for Diagnostics Testing in Laboratories Certified to Perform High Complexity Testing under CLIA prior to Emergency use Authorization for Coronavirus Disease 2019 during the Public Health Emergency issued on December 21, 2019. COVID 19 Source [employer] Normal [facility] Comment on above: Result Comment: Naso pharyngeal Corrected on 10/31 AT 0655: Previously reported as NASOPHARYNGEAL Swab Corrected on 10/31 AT 0655: Previously reported as NASOPHARYNGEAL Office Visit: new patienton 01-26-2017 Documentation of current medications (procedure) Done Invalid Interpretation Code [facility] Work Phone: Smoking cessation education (procedure) yes Invalid Interpretation Code [employer] Work Phone: Tobacco smoking status NHIS Never Invalid Interpretation Code [facility] Work Phone: Tobacco use [facility] Current every day smoker Invalid Interpretation Code [employer] Work Phone: [phone] Replaced Document: Tremayne Carteron 01-12-2017 electrocardiogram interpretation Sinus Bradycardia - Negative T-waves - Anterior ischemia. ABNORMAL Invalid Interpretation Code [employer] Work Phone: [phone] GE use only - for [employer] import when terms are not otherwise specified 443 ms Invalid Interpretation Code [facility] Work Phone: [phone] P wave axis, electrocardiogram 76 deg Invalid Interpretation Code [employer] Work Phone: [phone] NC interval, electrocardiogram 144 ms Invalid Interpretation Code [facility] Work Phone: [phone] Pulse (Heart Rate) 57 /min Invalid Interpretation Code [facility] Work Phone: [phone] QRS axis, electrocardiogram 65 deg Invalid Interpretation Code [facility] Work Phone: [phone] QRS duration, electrocardiogram 80 ms Invalid Interpretation Code [facility] Work Phone: [phone] QT interval, electrocardiogram new path ms Invalid Interpretation Code [facility] Work Phone: [phone] T wave axis, electrocardiogram 1 deg Invalid Interpretation Code [facility] Work Phone: [phone] Clinical Lists Update: Prelo rabbit fancier 01-06-2017 Left ventricular Ejection fraction 66 % Invalid Interpretation Code [employer] Work Phone: [phone] Vital Signs Date Time Vital Sign Value Performing Clinician Facility 06-18-2025 03:58-0400 SaO2% (BldA) [Mass fraction] 97.1 % JHONNY VALENCIA MD [facility] 06-17-2025 04:13-0400 SaO2% (BldA) [Mass fraction] 97.7 % JHONNY VALENCIA MD [facility] 06-16-2025 11:07-0400 SaO2% (BldA) [Mass fraction] 97.1 % JHONNY VALENCIA MD [facility] 11-09-2024 07:16-0500 Body temperature 98.06 [degF] JHONNY VALENCIA MD [facility] 11-09-2024 07:16-0500 Diastolic Blood Pressure Non-Invasive 72 mm[Hg] JHONNY VALENCIA MD [facility] 11-09-2024 07:16-0500 Heart rate 64 /min JHONNY VALENCIA MD [facility] 11-09-2024 07:16-0500 Respiratory rate 20 /min JHONNY VALENCIA MD [facility] 11-09-2024 07:16-0500 Systolic Blood Pressure Non-Invasive 161 mm[Hg] JHONNY VALENCIA MD [facility] 11-09-2024 06:53-0500 Heart rate 72 /min JHONNY VALENCIA MD [facility] 11-09-2024 06:53-0500 Respiratory rate 20 /min JHONNY VALENCIA MD [facility] 11-09-2024 06:22-0500 Heart rate 63 /min JHONNY VALENCIA MD [facility] 11-09-2024 04:03-0500 Body temperature 98.42 [degF] JHONNY VALENCIA MD [facility] 11-09-2024 04:03-0500 Diastolic Blood Pressure Non-Invasive 74 mm[Hg] JHONNY VALENCIA MD [facility] 11-09-2024 04:03-0500 Heart rate 63 /min JHONNY VALENCIA MD [facility] 11-09-2024 04:03-0500 Mean blood pressure 97 mm[Hg] JHONNY VALENCIA MD [facility] 11-09-2024 04:03-0500 Respiratory rate 22 /min JHONNY VALENCIA MD [facility] 11-09-2024 04:03-0500 Systolic Blood Pressure Non-Invasive 162 mm[Hg] JHONNY VALENCIA MD [facility] 11-09-2024 02:46-0500 Heart rate 63 /min JHONNY VALENCIA MD [facility] 11-09-2024 00:45-0500 Blood Pressure Cuff Size JHONNY VALENCIA MD [facility] 11-09-2024 00:45-0500 Blood Pressure Location JHONNY VALENCIA MD [facility] 11-09-2024 00:45-0500 Body temperature 98.06 [degF] JHONNY VALENCIA MD [facility] 11-09-2024 00:45-0500 Diastolic Blood Pressure Non-Invasive 63 mm[Hg] JHONNY VALENCIA MD [facility] 11-09-2024 00:45-0500 Heart rate 65 /min JHONNY VALENCIA MD [facility] 11-09-2024 00:45-0500 Reason For Taking VItal Signs JHONNY VALENCIA MD [facility] 11-09-2024 00:45-0500 Systolic Blood Pressure Non-Invasive 133 mm[Hg] JHONNY VALENCIA MD [facility] 11-08-2024 19:18-0500 Blood Pressure Cuff Size JHONNY VALENCIA MD [facility] 11-08-2024 19:18-0500 Blood Pressure Location JHONNY VALENCIA MD [facility] 11-08-2024 19:18-0500 Reason For Taking VItal Signs JHONNY VALENCIA MD [facility] 11-08-2024 14:34-0500 Reason For Taking VItal Signs JHONNY VALENCIA MD [facility] 11-08-2024 11:03-0500 Blood Pressure Cuff Size JHONNY VALENCIA MD [facility] 11-08-2024 11:03-0500 Blood Pressure Location JHONNY VALENCIA MD [facility] 11-08-2024 11:03-0500 Blood Pressure Method JHONNY VALENCIA MD [facility] 11-08-2024 07:29-0500 Blood Pressure Method JHONNY VALENCIA MD [facility] 11-08-2024 06:19-0500 Heart rate 70 /min JHONNY VALENCIA MD [facility] 11-07-2024 23:30-0500 Heart rate 54 /min JHONNY VALENCIA MD [facility] 11-07-2024 23:30-0500 Mean blood pressure 98 mm[Hg] JHONNY VALENCIA MD [facility] 11-07-2024 12:22-0500 Mean blood pressure 80 mm[Hg] JHONNY VALENCIA MD [facility] 11-07-2024 03:30-0500 Body temperature 97.34 [degF] JHONNY VALENCIA MD [facility] 11-06-2024 23:33-0500 Body temperature 97.52 [degF] JHONNY VALENCIA MD [facility] 11-06-2024 03:27-0500 Body temperature 98.06 [degF] JHONNY VALENCIA MD [facility] 11-06-2024 03:24-0500 SaO2% (BldA) [Mass fraction] 97.4 % JHONNY VALENCIA MD [facility] 11-05-2024 08:33-0500 Heart rate 107 /min JHONNY VALENCIA MD [facility] 11-05-2024 03:15-0500 SaO2% (BldA) [Mass fraction] 94.7 % JHONNY VALENCIA MD [facility] 11-04-2024 12:29-0500 SaO2% (BldA) [Mass fraction] 98.1 % JHONNY VALENCIA MD [facility] 11-04-2024 11:10-0500 Body height 157.5 cm JHONNY VALENCIA MD [facility] 11-04-2024 11:10-0500 Body weight 54.5 kg JHONNY VALENCIA MD [facility] 11-04-2024 11:10-0500 Body weight 21.97 kg/m2 JHONNY VALENCIA MD [facility] 10-03-2024 14:26-0500 Body height 162.6 cm Susan Fontana [employer]GER [employer] Work Phone: [facility] 10-03-2024 14:26-0500 Body mass index (BMI) [Ratio] 18.02 kg/m2 Susan Callahanman MANAGER [employer] Work Phone: [facility] 10-03-2024 14:26-0500 Body weight 47.63 kg Susan Callahanman MANAGER [employer] Work Phone: [facility] 10-03-2024 14:26-0500 Diastolic blood pressure 81 mm[Hg] Susan Callahanman MANAGER [employer] Work Phone: [facility] 10-03-2024 14:26-0500 Heart rate 60 /min Susan Callahanman MANAGER [employer] Work Phone: [facility] 10-03-2024 14:26-0500 Systolic blood pressure 195 mm[Hg] Susan Marizol MANAGER [employer] Work Phone: [facility] 09-18-2023 12:02-0500 Body height 162.6 cm Elvin Blanc PA-C Work Phone: [facility] 09-18-2023 12:02-0500 Body mass index (BMI) [Ratio] 17.7 kg/m2 Elvin Newbill PA-C Work Phone: [facility] 09-18-2023 12:02-0500 Body temperature 97.81 [degF] Elvin Newbill PA-C Work Phone: [facility] 09-18-2023 12:02-0500 Body weight 46.77 kg Elvin Newbill PA-C Work Phone: [phone] [place] [address] 09-18-2023 12:02-0500 Diastolic blood pressure 75 mm[Hg] Elvin Newbill PA-C Work Phone: [phone] [place] [address] 09-18-2023 12:02-0500 Heart rate 63 /min Elvin Newbill PA-C Work Phone: [facility] 09-18-2023 12:02-0500 SaO2% (BldA) [Mass fraction] 95 % Elvin Newbill PA-C Work Phone: [phone] [place] [address] 09-18-2023 12:02-0500 Systolic blood pressure 188 mm[Hg] Elvin Newbill PA-C Work Phone: [facility] 09-06-2023 16:00-0500 Heart rate 57 /min JHONNY VALENCIA MD [facility] 09-06-2023 14:28-0500 Body temperature 98.06 [degF] JHONNY VALENCIA MD [facility] 09-06-2023 14:28-0500 Diastolic Blood Pressure Non-Invasive 64 mm[Hg] JHONNY VALENCIA MD [facility] 09-06-2023 14:28-0500 Heart rate 60 /min JHONNY VALENCIA MD [facility] 09-06-2023 14:28-0500 Reason For Taking VItal Signs JHONNY VALENCIA MD [facility] 09-06-2023 14:28-0500 Respiratory rate 18 /min JHONNY VALENCIA MD [facility] 09-06-2023 14:28-0500 Systolic Blood Pressure Non-Invasive 138 mm[Hg] JHONNY VALENCIA MD [facility] 09-06-2023 12:38-0500 Heart rate 69 /min HJONNY VALENCIA MD [facility] 09-06-2023 12:38-0500 Respiratory rate 20 /min JHONNY VALENCIA MD [facility] 09-06-2023 11:05-0500 Blood Pressure Method JHONNY VALENCIA MD [facility] 09-06-2023 11:05-0500 Body temperature 97.88 [degF] JHONNY VALENCIA MD [facility] 09-06-2023 11:05-0500 Diastolic Blood Pressure Non-Invasive 76 mm[Hg] JHONNY VALENCIA MD [facility] 09-06-2023 11:05-0500 Heart rate 60 /min JHONNY VALENCIA MD [facility] 09-06-2023 11:05-0500 Respiratory rate 20 /min JHONNY VALENCIA MD [facility] 09-06-2023 11:05-0500 Systolic Blood Pressure Non-Invasive 138 mm[Hg] JHONNY VALENCIA MD [facility] 09-06-2023 08:50-0500 Heart rate 66 /min JHONNY VALENCIA MD [facility] 09-06-2023 08:45-0500 Blood Pressure Cuff Size JHONNY VALENCIA MD [facility] 09-06-2023 08:45-0500 Blood Pressure Location JHONNY VALENCIA MD [facility] 09-06-2023 08:45-0500 Blood Pressure Method JHONNY VALENCIA MD [facility] 09-06-2023 08:45-0500 Diastolic Blood Pressure Non-Invasive 74 mm[Hg] JHONNY VALENCIA MD [facility] 09-06-2023 08:45-0500 Systolic Blood Pressure Non-Invasive 136 mm[Hg] JHONNY VALENCIA MD [facility] 09-06-2023 07:18-0500 Blood Pressure Cuff Size JHONNY VALENCIA MD [facility] 09-06-2023 07:18-0500 Blood Pressure Location JHONNY VALENCIA MD [facility] 09-06-2023 07:18-0500 Blood Pressure Method JHONNY VALENCIA MD [facility] 09-06-2023 07:18-0500 Body temperature 97.88 [degF] JHONNY VALENCIA MD [facility] 09-06-2023 06:37-0500 Heart rate 62 /min JHONNY VALENCIA MD [facility] 09-06-2023 04:19-0500 Blood Pressure Location JHONNY VALENCIA MD [facility] 09-05-2023 23:52-0500 Blood Pressure Cuff Size JHONNY VALENCIA MD [facility] 09-05-2023 18:31-0500 Heart rate 63 /min JHONNY VALENCIA MD [facility] 09-05-2023 09:21-0500 Heart rate 78 /min JHONNY VALENCIA MD [facility] 09-05-2023 06:56-0500 Mean blood pressure 93 mm[Hg] JHONNY VALENCIA MD [facility] 09-04-2023 16:41-0500 Heart rate 70 /min JHONNY VALENCIA MD [facility] 09-03-2023 17:31-0500 SaO2% (BldA) [Mass fraction] 94.0 % JHONNY VALENCIA MD [facility] 09-03-2023 16:26-0500 Mean blood pressure 95 mm[Hg] JHONNY VALENCIA MD [facility] 09-03-2023 15:31-0500 Mean blood pressure 95 mm[Hg] JHONNY VALENCIA MD [facility] 09-03-2023 09:08-0500 Body height 157.5 cm JHONNY VALENCIA MD [facility] 09-03-2023 09:08-0500 Body weight 45.9 kg JHONNY VALENCIA MD [facility] 09-03-2023 09:08-0500 Body weight 18.5 kg/m2 JHONNY VALENCIA MD [facility] 09-03-2023 07:10-0500 SaO2% (BldA) [Mass fraction] 96.7 % JHONNY VALENCIA MD [facility] 09-02-2023 07:27-0500 SaO2% (BldA) [Mass fraction] 98.7 % JHONNY VALENCIA MD [facility] 01-26-2017 08:20-0400 BMI (Body Mass Index) 20.77 kg/m2 Harumi DeFinis [facility] Work Phone: 01-26-2017 08:20-0400 Body Temperature 97.8 [degF] Harumi DeFinis [facility] Work Phone: 01-26-2017 08:20-0400 BP Diastolic 65 mm[Hg] Harumi DeFinis [facility] Work Phone: 01-26-2017 08:20-0400 BP Systolic 125 mm[Hg] Opal Brambila [facility] Work Phone: 01-26-2017 08:20-0400 Height 162.56 cm Opal Brambila [facility] Work Phone: 01-26-2017 08:20-0400 Pulse (Heart Rate) 60 /min [facility] Work Phone: 01-26-2017 08:20-0400 Pulse Oximetry 98 % Opal Brambila [facility] Work Phone: 01-26-2017 08:20-0400 Weight 54.89 kg Opal Brambila [facility] Work Phone: 01-12-2017 14:25-0400 Respiratory Rate 16 /min [facility] Work Phone: Encounters Encounter Date Encounter Type Care Provider Facility Start: 07-02-2025 ambulatory [facility] Start: 06-16-2025 End: 06-25-2025 Evaluation and management of inpatient JHONNY VALENCIA MD [facility] Start: 06-16-2025 End: 06-16-2025 Emergency department patient visit [facility] Start: 03-12-2025 ambulatory [facility] Start: 03-07-2025 End: 03-07-2025 ambulatory [facility] Start: 11-10-2024 End: 11-17-2024 ambulatory [facility] Start: 11-04-2024 End: 11-09-2024 Evaluation and management of inpatient JHONNY VALENCIA MD [facility] Start: 11-04-2024 End: 11-04-2024 Emergency department patient visit [facility] Start: 10-21-2024 End: 10-23-2024 ambulatory ALFONSO OZUNA [facility] Start: 10-09-2024 End: 10-10-2024 Emergency department patient visit ALFONSO OZUNA [facility] Start: 10-03-2024 End: 10-06-2024 Evaluation and management of inpatient ALFONSO OZUNA 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, unspecified vessel or lesion type; Chronic obstructive pulmonary disease, unspecified COPD type (Multi); Health maintenance examination Start: 10-03-2024 End: 10-03-2024 Patient encounter status [facility] MANAGER [employer] Work Phone: [facility] Work Phone: Start: 09-18-2023 End: 09-18-2023 Office outpatient new 45 minutes Elvin Blanc PA-C Work Phone: [facility] Comment on above: Chronic obstructive pulmonary disease, unspecified COPD type (CMS/HCC) (Primary Dx); 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, unspecified vessel or lesion type (CMS/HCC); Primary hypertension; Congestive heart failure, unspecified HF chronicity, unspecified heart failure type (CMS/HCC) Start: 09-02-2023 ambulatory JACK Tian ty:[facility] Start: 09-02-2023 End: 09-06-2023 Evaluation and management of inpatient DO FERCHO VILLASEÑOR Facility:A Start: 09-02-2023 End: 09-06-2023 Evaluation and management of inpatient JHONNY VALENCIA MD [facility] Start: 09-02-2023 ambulatory JACK CARMICHAEL DO Facili ty:[facility] Procedures Date Procedure Procedure Detail Performing Clinician Start: 06-16-2025 Urinalysis ALFONSO Díaz Comment on above: Result Comment: URIN ALYSIS Performed By: #### [id number] ####[facility],[address] [place], [place] [id number] Start: 11-04-2024 Urinalysis ALFONSO Díaz Comment on above: Result Comment: URIN ALYSIS Performed By: #### [id number] ####[place] [id number] Start: 09-04-2023 Echocardiography JHONNY VALENCIA MD Start: 09-03-2023 Cardiac catheterization JHONNY VALENCIA MD Start: 09-02-2023 CT of chest JHONNY CALDERON MD Start: 01-26-2021 6-minute walk test JOSE VALENCIA MD Start: 01-25-2021 Measurement of respi ratory function JHONNY VALENCIA MD Start: 01-12-2017 End: 03-24-2017 Electrocardiogram, complete Juanjo sepulveda MD Start: 01-12-2017 End: 01-12-2017 Follow Up Appt 3 months Juanjo Marr MD Start: 01-12-2017 End: 01-12-2017 MMM Juanjo Marr MD Start: 01-06-2017 Duplex ultrasonograp hy of carotid artery JHONNY VALENCIA MD Start: 12-27-2016 Doppler ultrasonogra phy of renal artery JHONNY VALENCIA MD Cardiac catheterization JOSE VALENCIA MD Comment on above: Per cardiology OV no te dated 06/16/21 History of percutane ous transluminal coronary angioplasty JHONNY VALENCIA MD Plan of Treatment Date Care Activity Detail Author Start: 2029 RSV High Risk: (Elde rly (60+) or Population) (1 - 1-dose 75+ series) RSV High Risk: (Elderly (60+) or Population) (1 - 1-dose 75+ series) [facility] Start: 10-03-2024 End: 10-03-2025 CBC W Auto Differential panel - Blood CBC and Auto Differential Lab Routine 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, unspecified vessel or lesion type (Multi) Expected: 10/03/2024 (Approximate), Expires: 10/03/2025 [facility] Work Phone: Comment on above: Expected: 10/03/2024 (Approximate), Expires: 10/03/2025 Start: 10-03-2024 End: 10-03-2025 Comprehensive metabolic 2000 panel - Serum or Plasma Comprehensive Metabolic Panel Lab Routine Primary hypertension Expected: 10/03/2024 (Approximate), Expires: 10/03/2025 [facility] Work Phone: Comment on above: Expected: 10/03/2024 (Approximate), Expires: 10/03/2025 Start: 10-03-2024 End: 10-03-2025 Lipid 1996 panel - Serum or Plasma Lipid Panel Lab Routine Health maintenance examination Expected: 10/03/2024 (Approximate), Expires: 10/03/2025 [facility] Work Phone: Comment on above: Expected: 10/03/2024 (Approximate), Expires: 10/03/2025 Start: 10-03-2024 End: 10-03-2025 TSH with reflex to Free T4 if abnormal TSH with reflex to Free T4 if abnormal Lab Routine Health maintenance examination Expected: 10/03/2024 (Approximate), Expires: 10/03/2025 [facility] Work Phone: Comment on above: Expected: 10/03/2024 (Approximate), Expires: 10/03/2025 Start: 10-03-2024 End: 10-03-2025 US Heart Transthoracic Transthoracic Echo (TTE) Complete Echocardiography Routine Primary hypertension Congestive heart failure, unspecified HF chronicity, unspecified heart failure type (Multi) 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, unspecified vessel or lesion type (Multi) Expected: 10/03/2024, Expires: 10/03/2025 [facility] Work Phone: Comment on above: Expected: 10/03/2024 , Expires: 10/03/2025 Start: 09-18-2024 End: 09-18-2024 Patient encounter procedure 09/18/2024 11:30 AM EST Office Visit [facility] [address] [place] [id number] Elvin Blanc PA-C [address] [employer] [place] [address] [facility] Start: 06-23-2024 COVID-19 Vaccine ( season) COVID-19 Vaccine ( season) [facility] Start: 06-23-2024 Influenza vaccination Influenza Vacc ine (#1) [facility] Start: 09-18-2023 End: 09-18-2024 CBC panel - Blood by Automated count CBC Lab Routine Chronic obstructive pulmonary disease, unspecified COPD type (CMS/HCC) 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, unspecified vessel or lesion type (CMS/HCC) Primary hypertension Congestive heart failure, unspecified HF chronicity, unspecified heart failure type (CMS/HCC) Expected: 09/18/2023 (Approximate), Expires: 09/18/2024 [facility] Work Phone: Comment on above: Expected: 09/18/2023 (Approximate), Expires: 09/18/2024 Start: 09-18-2023 End: 09-18-2024 Comprehensive metabolic 2000 panel - Serum or Plasma Comprehensive Metabolic Panel Lab Routine Chronic obstructive pulmonary disease, unspecified COPD type (CMS/HCC) 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, unspecified vessel or lesion type (CMS/HCC) Primary hypertension Congestive heart failure, unspecified HF chronicity, unspecified heart failure type (CMS/HCC) Expected: 09/18/2023 (Approximate), Expires: 09/18/2024 [facility] Work Phone: Comment on above: Expected: 09/18/2023 (Approximate), Expires: 09/18/2024 Start: 09-18-2023 End: 09-18-2024 Lipid 1996 panel - Serum or Plasma Lipid Panel Lab Routine Chronic obstructive pulmonary disease, unspecified COPD type (CMS/HCC) 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, unspecified vessel or lesion type (CMS/HCC) Primary hypertension Congestive heart failure, unspecified HF chronicity, unspecified heart failure type (CMS/HCC) Expected: 09/18/2023 (Approximate), Expires: 09/18/2024 [facility] Work Phone: Comment on above: Expected: 09/18/2023 (Approximate), Expires: 09/18/2024 Start: 09-18-2023 End: 09-18-2024 TSH with reflex to Free T4 if abnormal TSH with reflex to Free T4 if abnormal Lab Routine Chronic obstructive pulmonary disease, unspecified COPD type (CMS/HCC) 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, unspecified vessel or lesion type (CMS/HCC) Primary hypertension Congestive heart failure, unspecified HF chronicity, unspecified heart failure type (CMS/HCC) Expected: 09/18/2023 (Approximate), Expires: 09/18/2024 [facility] Work Phone: Comment on above: Expected: 09/18/2023 (Approximate), Expires: 09/18/2024 Start: 06-23-2023 Influenza vaccination Influenza Vacc ine (#1) [facility] Start: 12-06-2021 COVID-19 Vaccine (2 - Moderna series) COVID-19 Vaccine (2 - Moderna series) [facility] Start: 04-17-2017 End: 04-17-2017 Appointment Appointment [facility] Work Phone: Start: 01-26-2017 End: 01-26-2017 CT Ldct scan for lung cancer screening CT Ldct scan for lung cancer screening [facility] Work Phone: Start: 01-26-2017 End: 01-26-2017 DMB DMB [facility] Work Phone: Start: 01-26-2017 End: 01-26-2017 Follow Up Appt 6 weeks Follow Up Appt 6 weeks [facility] Work Phone: Start: 01-26-2017 End: 01-26-2017 Pulmonary Function Test - complete Pulmonary Function Test - complete [facility] Work Phone: Start: 01-26-2017 End: 01-26-2017 Pulmonary stress test/simple Pulmonary stress testing; simple (eg, 6-minute walk) [facility] Work Phone: Start: 01-12-2017 End: 04-03-2017 Cardiac Rehab [facility] [address] [place], [address] [facility] Work Phone: Start: 01-12-2017 End: 01-12-2017 Cardiovascular stress test using treadmill Treadmill stress test (no imaging) [facility] Work Phone: Start: 01-12-2017 End: 03-24-2017 Electrocardiogram, complete EKG (In office) [facility] Work Phone: Start: 01-12-2017 End: 01-12-2017 Follow Up Appt 3 months Follow Up Appt 3 months [facility] Work Phone: Start: 01-12-2017 End: 01-12-2017 MMM MMM [facility] Work Phone: Start: 02-23-2004 Zoster Vaccines (1 of 2) Zoster Vacc dimitrios (1 of 2) [facility] Start: 1994 Screening for malign ant neoplasm of breast Mammogram [facility] Start: 02-23-1976 DTaP/Tdap/Td Vaccine s (1 - Tdap) DTaP/Tdap/Td Vaccines (1 - Tdap) [facility] Start: 02-23-1972 Hepatitis C screening Hepatitis C Sc reening [facility] Start: 1954 Lipid panel Lipid Panel [facility] Start: 1954 Medicare Annual Well ness Visit Medicare Annual Wellness Visit (AWV) [facility] Start: 1954 Screening for malign ant neoplasm of colon [facility] Start: 1954 Screening for osteoporosis Bone Density Scan [facility] Immunizations Immunization Date Immunization Notes Care Provider Fa cility 11-09-2024 Seasonal trivalent influenza vaccine, adjuvanted, preservative free JHONNY VALENCIA MD [facility] 10-11-2021 SARS-CoV-2 (COVID-19 ) [id number] vaccine JHONNY VALENCIA MD [facility] 11-05-2020 pneumococcal conjuga te vaccine, 13 valent JHONNY VALENCIA MD [facility] 11-05-2020 influenza virus vacc ine, unspecified formulation Elvin Blanc PA-C Work Phone: [facility] 09-23-2019 pneumococcal polysaccharide vaccine, 23 valent JHONNY VALENCIA MD [facility] Payers Date Payer Category Payer Private Health Insurance [id number] 2024 Medicare [id number] 2024 Medicare supplementa l policy (as second payer) AARP [id number] 2024 Unknown [id number] 2024 Medicare (Managed Care) [facility] [id number] 2024 Medicare [id number] 2023 Medicare [id number] 2023 Medicare [id number] 2023 Unknown [id number] 2023 Unknown [employer] [place] [employer] [id number] 2023-Present [address] [place] [address] [id number] 1954 Unknown [id number] 1954 Unknown [id number] [id number] .651 1954 Unknown [id number] [id number] .651 1954 Unknown [id number] [id number] .651 1954 Unknown [id number] [id number] .651 1954 Unknown [id number] [id number] .651 1954 Unknown [id number] [id number] .651 1954 Unknown [id number] [id number] .651 1954 Unknown [id number] [id number] .651 1954 Unknown [id number] [id number] .651 1954 Unknown [id number] [id number] .651 1954 Unknown [id number] [id number] .627 1954 Unknown [id number] [id number] .627 1954 Unknown [id number] .1244 Self-pay [id number] Social History Date Type Detail Facility Tobacco smoking status [facility] Start: 09-18-2023 Tobacco smoking status NMIS Smokes tobacco daily [facility] Work Phone: History of tobacco use Cigarette Smoker [facility] Work Phone: Start: 09-18-2023 Tobacco use and exposure Smokeless tobacco non-user [facility] Work Phone: Start: 09-18-2023 End: 10-03-2024 Alcohol intake Lifetime non-drinker (finding) [facility] Work Phone: Start: 09-18-2023 History of Social function [facility] Work Phone: Start: 09-18-2023 [facility] Start: 1955 Sex Assigned At Not on file [facility] Work Phone: Start: 09-08-2023 End: 10-03-2024 Exposure to SARS-CoV-2 (event) Not sure [facility] Start: 2024 Tobacco smoking status Light tobacco smoker (finding) [facility] Tobacco smoking status Heavy tobacco smoker (finding) [facility] Start: 06-18-2011 Sex Female (finding) [facility] Functional Status Date Assessment Result Facility 11-09-2024 Functional Status Room check performed [facility] 11-09-2024 Functional Status [facility] 11-09-2024 Functional Status [facility] 11-09-2024 Functional Status 3am-7am [facility] 11-09-2024 Functional Status [facility] 11-09-2024 Functional Status Independent [facility] 11-08-2024 Functional Status Activity Assistance Ind ependent [facility] 11-08-2024 Functional Status [facility] 11-08-2024 Functional Status Dinner Percent 100 [facility] 11-08-2024 Functional Status [facility] 11-08-2024 Functional Status bilateral knee high rem raminda/off [facility] 11-07-2024 Functional Status [facility] 11-06-2024 Functional Status Min A [facility] 11-05-2024 Functional Status Special Call D evice Unable to use call device [facility] 11-05-2024 Functional Status [facility] 11-05-2024 Functional Status [facility] 11-05-2024 Functional Status NPO Status Maintained [facility] 11-05-2024 Functional Status Single level home [facility] 11-05-2024 Functional Status [facility] 11-05-2024 Functional Status [facility] 11-04-2024 Functional Status Sensory Deficits None [facility] 09-06-2023 Functional Status Room check performed [facility] 09-05-2023 Functional Status [facility] 09-05-2023 Functional Status Done [facility] 09-05-2023 Functional Status 90 [facility] 09-05-2023 Functional Status [facility] 09-04-2023 Functional Status Single level home [facility] 09-04-2023 Functional Status [facility] 09-04-2023 Functional Status Transparent silicone dr nav [facility] 09-04-2023 Functional Status [facility] 09-04-2023 Functional Status Ambulation Up with assi stance [facility] 09-03-2023 Functional Status [facility] 09-03-2023 Functional Status [facility] 09-03-2023 Functional Status [facility] 09-03-2023 Functional Status [facility] 09-03-2023 Functional Status [facility] 09-03-2023 Functional Status Maintained [facility] 09-03-2023 Functional Status [facility] 09-03-2023 Functional Status [facility] Mental Status Date Assessment Result Facility 11-09-2024 Mental Status Oriented x 4 [facility] 11-09-2024 Mental Status [facility] 11-08-2024 Mental Status [facility] 11-07-2024 Mental Status [facility] 09-06-2023 Mental Status Oriented x 4 [facility] 09-05-2023 Mental Status [facility] Clinical Notes 09-02-2023 to 06-25-2025 Note Date & Type Note Facility 06-25-2025 Cardiology Progress note Subjective Patient seen and examined bedside this morning. Denies any new concerns. Heart cath with PCI to LAD yesterday, right radial access looks clean dry and intact with good pulse. Objective Vitals and Measurements T: 36.5 C (Oral) TMIN: 36.4 C (Oral) TMAX: 37.2 C (Oral) HR: 59 RR: 16 BP: 140/62 SpO2: 96% Intake and Output Last 24 hours Intake Oral Intake 3280.00 Output Urine Voided 400.00 Stool Count 1.00 Urine Count 6.00 Total Summary Total Intake 3280.00 Total Output 400.00 Fluid Balance 2880.00 Physical Exam General Appearance:[Patient comfortably lying on bed, not in acute distress] Head:[Normocephalic, atraumatic] EENT:[PERRLA,] Neck:[supple, no JVD, no mass] Cardiac:[s1s2,RRR, no murmurs or rubs or gallops] Lungs:[clear to auscultation bilaterally, no wheeze or rhonchi or crackles] Abdomen:[soft , Nontender, no organomegaly, bowel sounds heard] Musculoskeletal:[full ROM , no gross deformities] Extremities:[no rash or ulcers or pedal edema] Neurological:[alert, oriented x 3, grossly no focal neurological deficits] Skin:[no rash or ulcers] Weight Dosing Weight: 51.5 kg (06/16/25) Medications Medications (15) Active Scheduled: (12) albuterol - ipratropium 2.5 mg-0.5 mg/3 mL Inhal Smiley UD 3 mL, Inhalation, QIDRT aspirin 81 mg Chewable 81 mg 1 tab(s), Oral, qDayM budesonide 0.5 mg/2 mL Susp UD 0.5 mg 2 mL, Inhalation, BIDRT carvedilol 6.25 mg tablet 6.25 mg 1 tab(s), Oral, BIDM clopidogrel 75 mg Tablet 75 mg 1 tab(s), Oral, qDay ezetimibe 10 mg tablet 10 mg 1 tab(s), Oral, qDay No metformin for 48 hrs post contrast 1 EA, Miscellaneous, Daily pantoprazole 40 mg EC tablet 40 mg 1 tab(s), Oral, qDayAC predniSONE 20 mg tablet 20 mg 1 tab(s), Oral, qDayM rosuvastatin 20 mg tablet 40 mg 2 tab(s), Oral, Daily sacubitril-valsartan 49-51mg oral tablet 1 tab(s), Oral, BID spironolactone 25 mg tablet 25 mg 1 tab(s), Oral, qDayM Continuous: (0) PRN: (3) albuterol - ipratropium 2.5 mg-0.5 mg/3 mL Inhal Smiley UD 3 mL, Inhalation, q2hRT dextrose 50% Solution Disp syringe 50 mL 25 gram(s) 50 mL, IV Push, AsDirected hydralazine 20 mg/mL (1mL) vial 10 mg 0.5 mL, IV Push, q2h Lab Results 06/25 03:42 WBC: 10.0 Hgb: 11.1 L Hct: 33.3 L Platelet: 341 Neutrophil %: 86.8 H Glucose Level: 134 H Sodium Level: 137 Potassium Level: 4.6 BUN: 19.0 Creatinine Lvl (s): 0.96 06/24 08:01 WBC: 13.3 H Hgb: 11.9 L Hct: 36.2 Platelet: 371 Neutrophil %: 59.4 Glucose Level: 91 Sodium Level: 139 Potassium Level: 3.8 BUN: 19.0 Creatinine Lvl (s): 1.00 EKG EKG - Completed -- 06/24/25 15:33:00 EDT, Post-procedure, Complete by Nursing Assessment/Plan CAD s/p PCI ([facility] 06/24/2025 -significant LAD disease status post PCI with residual LCx disease-medical management) Ischemic cardiomyopathy with EF 30 to 35%, not in decompensation COPD with exacerbation Hypertension Hyperlipidemia Current tobacco use 70-year-old female with a history of CAD status post PCI to RCA in , cardiomyopathy, COPD, tobacco use, bipolar admitted with shortness of breath on exertion requiring ICU stay and troponin was elevated with a peak troponin of 1085. Echocardiogram revealed EF 30 to 35% with wall motion abnormality. Underwent C yesterday showing significant LAD disease with PCI to LAD and moderate disease in LCx, which is recommended to manage medically. Patient tolerated DAPT with aspirin and Plavix. Continue Coreg, Entresto and spironolactone. Okay to be discharged from cardiac standpoint. Digitally Signed by HARSH CEDILLO MD on 06/25/2025 01:39 PM [facility] 06-25-2025 Note Discharge Instructions Thank you for allowing [facility] to assist you with your healthcare needs. The following is important discharge information regarding your hospital visit. Your Care Team ALFONSO OZUNA APRN-PUTTY GLAZER What to do next Instructions From Your Doctor Came in the hospital with difficulty breathing he found that she had severe COPD exacerbation in addition to concern for heart disease. treated with steroid therapy and opening up of heart blockage. Please take aspirin and Plavix along with prednisone and follow-up outpatient with your primary care and heart doctor Follow Up Appointments Follow Up with KEITH CANCHOLA MD When:In 2 weeks Where:[address] [facility] [place] [address]- Follow Up with Cardiac Rehab- [facility] Where:[facility] [address] [place] [address]- Additional Information: Cardiac rehabilitation is a vital part of your recovery and long-term heart health following your hospital stay. It is a medically supervised exercise and education program designed to improve your physical fitness, manage heart-related risk factors, and support emotional well-being. A cardiac rehab [facility] will contact you soon to schedule your follow-up appointment. If you have any questions please call [phone]. Follow Up with [facility] [place], When:Within 1-2 days Additional Information: [facility] has been referred to provide your home care services upon discharge; a nurse will contact you upon your return home to arrange for your start of care; please call with any further questions or concerns. Follow Up with ALFONSO OZUNA APRN-APRIL When:Within 1-2 days Where:[address], [place] [id number] [phone] Additional Information: Please call the office to schedule a hospital follow up appointment. The Following Activity and Diet Have Been Ordered for You No qualifying data available. No qualifying data available. The Following Equipment Has Been Ordered for You No qualifying data available. The Following Treatments Have Been Ordered for You Discharge Labs No qualifying data available. Discharge Radiology No qualifying data available. Other Therapies No qualifying data available. Post Acute Orders No qualifying data available. Someone Will Contact You Regarding These Home Health Referrals No home referrals have been ordered for you. No one will call you. Allergies NKA Medications Please ask your primary doctor or pharmacist before taking any other medication not listed, including over the counter drugs, herbal medications, vitamins and or supplements as they may interact with your home medications. What How Much When Instructions Last Dose New predniSONE (predniSONE 10 mg oral tablet) 1 tab(s) by mouth Once a day Duration: 3 Days Pickup at [facility] New spironolactone (Aldactone 25 mg oral tablet) 1 tab(s) by mouth Once a day with a meal Duration: 90 Days Refills: 3 Pickup at [facility] Changed aspirin (aspirin 81 mg oral delayed release tablet) 1 tab(s) by mouth Every day Duration: 90 Days Pickup at [facility] Changed clopidogrel (Plavix 75 mg oral tablet) 1 tab(s) by mouth Once a day Duration: 90 Days Pickup at [facility] Changed furosemide (Lasix 40 mg oral tablet) 1 tab(s) by mouth Once a day Duration: 90 Days Pickup at [facility] Unchanged albuterol (albuterol MDI (90 mcg/ inh) CFC free inhalation aerosol) 1 puff(s) by inhalation Every 4 hours as needed for as needed for wheezing Unchanged carvedilol (Coreg 6.25 mg oral tablet) 1 tab(s) by mouth Two (2) times a day Unchanged ezetimibe (Zetia 10 mg oral tablet) 1 tab(s) by mouth Once a day appt needed for further refills Unchanged montelukast (Singulair 10 mg oral tablet) 1 tab(s) by mouth Once a day Unchanged oxybutynin (oxybutynin 10 mg/ 24 hr oral tablet, extended release) 1 tab(s) by mouth Once a day Unchanged potassium chloride (Klor-Con M20 oral tablet, extended release) 1 tab(s) by mouth Two (2) times a day Unchanged rosuvastatin (Crestor 40 mg oral tablet) 1 tab(s) by mouth Every day Unchanged sacubitril-valsartan (Entresto 97 mg-103 mg oral tablet) 1 tab(s) by mouth Two (2) times a day Pharmacy Information [facility]: [address], [place] [id number] [phone] Please take this list to your next doctor s visit. Bring all medications you take, including over the counter medications, herbals and other supplements with you to your doctor s visit. Patients and families are reminded to discard old lists and to update any records with all medication providers or retail pharmacies. Medication Leaflets spironolactone (spir ON oh LAK tone) Aldactone, CaroSpir What is the most important information I should know about spironolactone? You should not use spironolactone if you Meagher's disease, high levels of potassium in your blood, if you are unable to urinate, or if you are also taking eplerenone. What is spironolactone? Spironolactone is a potassium-sparing diuretic (water pill) that prevents your body from absorbing too much salt and keeps your potassium levels from getting too low. Spironolactone is used to treat heart failure, high blood pressure (hypertension), or hypokalemia (low potassium levels in the blood). Spironolactone also treats fluid retention (edema) in people with congestive heart failure, cirrhosis of the liver, or a kidney disorder called nephrotic syndrome. Spironolactone is also used to diagnose or treat a condition in which you have too much aldosterone in your body. Aldosterone is a hormone produced by your adrenal glands to help regulate the salt and water balance in your body. Spironolactone may also be used for purposes not listed in this medication guide. What should I discuss with my healthcare provider before taking spironolactone? You should not use spironolactone if you are allergic to it, or if you have: Pedro Luis's disease (an adrenal gland disorder); high levels of potassium in your blood (hyperkalemia); if you are unable to urinate; or if you are also taking eplerenone. Tell your doctor if you have ever had: an electrolyte imbalance (such as low levels of calcium, magnesium, or sodium in your blood); kidney disease; liver disease; or heart disease. Tell your doctor if you are or plan to become . Having congestive heart failure, cirrhosis, or uncontrolled high blood pressure during may lead to medical problems in the mother or the baby. Your doctor should decide whether you take spironolactone if you are . It may not be safe to breastfeed while using this medicine. Ask your doctor about any risk. How should I take spironolactone? Follow all directions on your prescription label and read all medication guides or instruction sheets. Your doctor may occasionally change your dose. Use the medicine exactly as directed. Do not share this medicine with another person, even if they have the same symptoms you have. You may take spironolactone with or without food, but take it the same way each time. You will need frequent medical tests. This medicine can affect the results of certain medical tests. Tell any doctor who treats you that you are using spironolactone. If you need surgery, tell your surgeon you currently use this medicine. You may need to stop for a short time. If you are being treated for high blood pressure, keep using this medication even if you feel well. High blood pressure often has no symptoms. You may need to use blood pressure medication for the rest of your life. Store at room temperature away from heat, light, and moisture. What happens if I miss a dose? Take the medicine as soon as you can, but skip the missed dose if it is almost time for your next dose. Do not take two doses at one time. What happens if I overdose? Seek emergency medical attention or call the Poison Help line at . What should I avoid while taking spironolactone? Drinking alcohol can increase certain side effects. Do not use potassium supplements or salt substitutes, unless your doctor has told you to. Avoid a diet high in salt. Too much salt will cause your body to retain water and can make this medication less effective. Avoid driving or hazardous activity until you know how this medicine will affect you. Your reactions could be impaired. Avoid getting up too fast from a sitting or lying position, or you may feel dizzy. What are the possible side effects of spironolactone? Get emergency medical help if you have signs of an allergic reaction: hives; difficulty breathing; swelling of your face, lips, tongue, or throat. Call your doctor at once if you have: a light-headed feeling, like you might pass out; little or no urination; high potassium level--nausea, weakness, tingly feeling, chest pain, irregular heartbeats, loss of movement; o signs of other electrolyte imbalances--increased thirst or urination, confusion, vomiting, muscle pain, slurred speech, severe weakness, numbness, loss of coordination, feeling unsteady. Common side effects may include: breast swelling or tenderness. This is not a complete list of side effects and others may occur. Call your doctor for medical advice about side effects. You may report side effects to FDA at 0-094-AAQ-7742. What other drugs will affect spironolactone? Using spironolactone with other drugs that make you dizzy can worsen this effect. Ask your doctor before using opioid medication, a sleeping pill, a muscle relaxer, or medicine for anxiety, depression, or seizures. Tell your doctor about all your other medicines, especially: colchicine; digoxin; lithium; loperamide; trimethoprim; heart or blood pressure medicine (especially another diuretic); medicine to prevent a blood clot; or NSAIDs (nonsteroidal anti-inflammatory drugs)--aspirin, ibuprofen (Advil, Motrin), naproxen (Aleve), celecoxib, diclofenac, indomethacin, meloxicam, and others. This list is not complete. Other drugs may affect spironolactone, including prescription and aznl-cox-nrexvgm medicines, vitamins, and herbal products. Not all possible drug interactions are listed here. Where can I get more information? Your pharmacist can provide more information about spironolactone. Remember, keep this and all other medicines out of the reach of children, never share your medicines with others, and use this medication only for the indication prescribed. Every effort has been made to ensure that the information provided by [employer]. ('[employer]') is accurate, up-to-date, and complete, but no guarantee is made to that effect. Drug information contained herein may be time sensitive. [employer] information has been compiled for use by healthcare practitioners and consumers in the [place] and therefore [employer] does not warrant that uses outside of the [place] are appropriate, unless specifically indicated otherwise. [employer] drug information does not endorse drugs, diagnose patients or recommend therapy. [employer] drug information is an informational resource designed to assist licensed healthcare practitioners in caring for their patients and/or to serve consumers viewing this service as a supplement to, and not a substitute for, the expertise, skill, knowledge and judgment of healthcare practitioners. The absence of a warning for a given drug or drug combination in no way should be construed to indicate that the drug or drug combination is safe, effective or appropriate for any given patient. [employer] does not assume any responsibility for any aspect of healthcare administered with the aid of information [employer] provides. The information contained herein is not intended to cover all possible uses, directions, precautions, warnings, drug interactions, allergic reactions, or adverse effects. If you have questions about the drugs you are taking, check with your doctor, nurse or pharmacist. Copyright 9112-3033 [employer]. Version: 11.. Revision Date: 01/04/2020. Education Materials Steps to Quit Smoking Smoking tobacco is the leading cause of preventable . It can affect almost every organ in the body. Smoking puts you and people around you at risk for many serious, long-lasting (chronic) diseases. Quitting smoking can be hard, but it is one of the best things that you can do for your health. It is never too late to quit. How do I get ready to quit? When you decide to quit smoking, make a plan to help you succeed. Before you quit: Pick a date to quit. Set a date within the next 2 weeks to give you time to prepare. Write down the reasons why you are quitting. Keep this list in places where you will see it often. Tell your family, friends, and co-workers that you are quitting. Their support is important. Talk with your doctor about the choices that may help you quit. Find out if your health insurance will pay for these treatments. Know the people, places, things, and activities that make you want to smoke (triggers). Avoid them. What first steps can I take to quit smoking? Throw away all cigarettes at home, at work, and in your car. Throw away the things that you use when you smoke, such as ashtrays and lighters. Clean your car. Make sure to empty the ashtray. Clean your home, including curtains and carpets. What can I do to help me quit smoking? Talk with your doctor about taking medicines and seeing a counselor at the same time. You are more likely to succeed when you do both. If you are or , talk with your doctor about counseling or other ways to quit smoking. Do not take medicine to help you quit smoking unless your doctor tells you to do so. To quit smoking: Quit right away Quit smoking totally, instead of slowly cutting back on how much you smoke over a period of time. Go to counseling. You are more likely to quit if you go to counseling sessions regularly. Take medicine You may take medicines to help you quit. Some medicines need a prescription, and some you can buy pfkq-gim-rxhmfxp. Some medicines may contain a drug called nicotine to replace the nicotine in cigarettes. Medicines may: Help you to stop having the desire to smoke (cravings). Help to stop the problems that come when you stop smoking (withdrawal symptoms). Your doctor may ask you to use: Nicotine patches, gum, or lozenges. Nicotine inhalers or sprays. Non-nicotine medicine that is taken by mouth. Find resources Find resources and other ways to help you quit smoking and remain smoke-free after you quit. These resources are most helpful when you use them often. They include: Online chats with a counselor. Phone quitlines. Printed self-help materials. Support groups or group counseling. Text messaging programs. Mobile phone apps. Use apps on your mobile phone or tablet that can help you stick to your quit plan. There are many free apps for mobile phones and tablets as well as websites. Examples include Quit Guide from the CDC and smokefree.gov What things can I do to make it easier to quit? Talk to your family and friends. Ask them to support and encourage you. Call a phone quitline (NOW), reach out to support groups, or work with a counselor. Ask people who smoke to not smoke around you. Avoid places that make you want to smoke, such as: ? Bars. ? Parties. ? Smoke-break areas at work. Spend time with people who do not smoke. Lower the stress in your life. Stress can make you want to smoke. Try these things to help your stress: ? Getting regular exercise. ? Doing deep-breathing exercises. ? Doing yoga. ? Meditating. ? Doing a body scan. To do this, close your eyes, focus on one area of your body at a time from head to toe. Notice which parts of your body are tense. Try to relax the muscles in those areas. How will I feel when I quit smoking? Day 1 to 3 weeks Within the first 24 hours, you may start to have some problems that come from quitting tobacco. These problems are very bad 2 3 days after you quit, but they do not often last for more than 2 3 weeks. You may get these symptoms: Mood swings. Feeling restless, nervous, angry, or annoyed. Trouble concentrating. Dizziness. Strong desire for high-sugar foods and nicotine. Weight gain. Trouble pooping (constipation). Feeling like you may vomit (nausea). Coughing or a sore throat. Changes in how the medicines that you take for other issues work in your body. Depression. Trouble sleeping (insomnia). Week 3 and afterward After the first 2 3 weeks of quitting, you may start to notice more positive results, such as: Better sense of smell and taste. Less coughing and sore throat. Slower heart rate. Lower blood pressure. Clearer skin. Better breathing. Fewer sick days. Quitting smoking can be hard. Do not give up if you fail the first time. Some people need to try a few times before they succeed. Do your best to stick to your quit plan, and talk with your doctor if you have any questions or concerns. Summary Smoking tobacco is the leading cause of preventable . Quitting smoking can be hard, but it is one of the best things that you can do for your health. When you decide to quit smoking, make a plan to help you succeed. Quit smoking right away, not slowly over a period of time. When you start quitting, seek help from your doctor, family, or friends. This information is not intended to replace advice given to you by your health care provider. Make sure you discuss any questions you have with your health care provider. Document Released: 08/05/2010 Document Revised: 12/27/2019 Document Reviewed: 12/28/2019 [employer] Patient Education 2020 [employer]. HEART CATHETERIZATION/PCI (radial) Discharge Instructions DIET Drink plenty of fluids for the next 48 hours to help your kidneys flush the heart cath dye out of your system ACTIVITY For the next 48 hours: Do not deep bend the wrist Do not lift, push, or pull anything over 5 pounds Do not use the hand/arm to support your weight when rising from a chair or bed Do not drive For the next 7 days: Do not submerse your procedure site in water Do not swim, wash dishes, or take tub baths You may write, eat, type, and shower WOUND CARE Keep a Band-Aid on your procedure site for the next 3-4 days Change the Band-Aid daily or if it gets wet/soiled AFTER YOU GO HOME, CALL YOUR DOCTOR FOR: Any increase in bruising or tenderness from the procedure site Any redness, pus, or other signs of infection at the site A temperature above 100.5 Severe pain at the site DIAL 911 AND RETURN TO THE HOSPITAL FOR: Any bleeding from the procedure site. The site may be bruised or tender, but it should not be bleeding at any time. If your site begins to bleed, hold firm pressure on it and dial 911 to return to the hospital Any increase in swelling at the procedure site. An increase in swelling could mean the area is bleeding under the skin. Hold firm pressure to the site and dial 911 to return to the hospital Document Released: 10/09/2006 Document Revised: 09/25/2013 Document Reviewed: 10/10/2014 ExitCare Patient Information 2015 [email or web address]. This information is not intended to replace advice given to you by your health care provider. Make sure you discuss any questions you have with your health care provider. Additional Information VACCINATE! IT SAVES LIVES! Members of the community who have not yet received the COVID-19 vaccine and would like to receive it can visit one of [facility] vaccine clinics. There are many vaccine clinic locations within the [facility]. For locations and available times, please visit https://gettheshot.coronavirus.o mto.gov/. It is important to note that some COVID mobile vaccine clinics are held outdoors and may be canceled in rainy or stormy conditions. To learn more about pediatric vaccinations (ages 5-11), we invite you to visit the [facility] webpage. [email or web address].org/p [email or web address]-Ruwnedxtfrv-Freq ogxenp-Jxpmx-Dqzsztijm.html To learn more about the COVID-19 vaccine, we invite you to visit the CDC website for a list of frequently asked questions.https://www.cdc.gov/co ronavirus/2019-ncov/vaccines/faq .html [facility] Patient Portal Access Instructions: Stay connected with your healthcare team and access your personal medical information anytime with the [facility] Patient Portal. Please follow the directions below to create your [facility] account: 1.Access the email account you provided upon registration to the hospital/physician office.2.Look for an invitation email from [facility].3.Open the email and access the invitation link: Accept Invitation to [facility].4.Fill in the required lr to create your account. To access your account, visit [email or web address]. Click the blue button labeled Access Patient Portal and then log in with the username and password that you created in the steps above. You will be able to view your test results, lab results, a summary of your visits, upcoming appointments and more. There is also a convenient messaging option where you can send secure messages to your provider. In addition, you will have the ability to download any documents or summaries to your computer and/or send the information securely to a physician. Remember that your healthcare information is confidential, so carefully consider who you will allow to register on the [facility] Patient Portal for access to your information. You can also access the [facility] Patient Portal on the [facility]. Simply click on Patient Portal and then log into your account. If you would like to receive a full copy of your medical records, please contact the [facility] Medical Records Department by calling [phone], Monday through Monday between 8 a.m. and 4:30 p.m. HOW TO SAFELY DISPOSE OF PRESCRIPTION MEDICATIONS Please use one of the following methods to safely dispose of your unused medications. 1.Use a drug disposal kit: the drug disposal pouch allows you to safely discard your old and unused drugs. Ask your nurse to give you one when you are discharged.2.Visit a local take-back location: Many local pharmacies and police departments have programs that collect old and unwanted prescription drugs. Call your local pharmacy or go to http://[employer].Femasys/9T2Nm7r to find one close to you.3.Make use of household items: Use cat litter or old coffee grounds to dispose medications if other options are not available. Mix your drugs with these household products, seal them in an airtight container and throw it into the garbage. Call [facility]: [phone] to be sure your drugs can be disposed of in this way. Some medicines may require a different approach.4.Never flush your medications down the toilet. IF YOU HAVE BEEN PRESCRIBED AN OPIOID FOR PAIN If you have been prescribed an opioid (such as hydrocodone, oxycodone or morphine), it is critical to understand the possible side effects and risks of opioid pain medications. Even when taken as directed, opioids can have several side effects including: Tolerance, meaning you might need to take more of a medication for the same pain relief. Nausea, vomiting and/or constipation. Sleepiness, dizziness, dry mouth, confusion, depression or itching. Physical dependence, meaning you have withdrawal symptoms when a medication is stopped, can develop within a few days. KNOW YOUR RESPONSIBILITIES It is important to know exactly how much and how often to take the opioid pain medications you are prescribed. Never take opioids in higher amounts or more often than prescribed. Do not combine opioids with alcohol or other drugs that cause drowsiness, such as benzodiazepines, also known as benzos, including diazepam and alprazolam, muscle relaxants or sleep aids. Never sell or share prescription opioids. This is illegal. Store opioids in a secure place and out of reach of others (including children, family, friends and visitors). The last page of this document has been signed and retained as a CHART COPY. Signatures Patient Education Materials Steps to Quit Smoking, Yohs-tz-Omof 3- Heart Cath/PCI radial (07/2018)(CUSTOM) Medication Leaflets spironolactone My discharge plan and instructions have been reviewed and explained to me and I,ZABRINA HSU understand my current condition and have read and understand these discharge instructions. I have received a written copy of the plan/instructions. If I have questions, I am aware that I should contact my doctor. 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 It can affect almost every organ in the body. Smoking puts you and people around you at risk for many serious, long-lasting (chronic) diseases. Quitting smoking can be hard, but it is one of the best things that you can do for your health. It is never too late to quit. How do I get ready to quit? When you decide to quit smoking, make a plan to help you succeed. Before you quit: Pick a date to quit. Set a date within the next 2 weeks to give you time to prepare. Write down the reasons why you are quitting. Keep this list in places where you will see it often. Tell your family, friends, and co-workers that you are quitting. Their support is important. Talk with your doctor about the choices that may help you quit. Find out if your health insurance will pay for these treatments. Know the people, places, things, and activities that make you want to smoke (triggers). Avoid them. What first steps can I take to quit smoking? Throw away all cigarettes at home, at work, and in your car. Throw away the things that you use when you smoke, such as ashtrays and lighters. Clean your car. Make sure to empty the ashtray. Clean your home, including curtains and carpets. What can I do to help me quit smoking? Talk with your doctor about taking medicines and seeing a counselor at the same time. You are more likely to succeed when you do both. If you are or , talk with your doctor about counseling or other ways to quit smoking. Do not take medicine to help you quit smoking unless your doctor tells you to do so. To quit smoking: Quit right away Quit smoking totally, instead of slowly cutting back on how much you smoke over a period of time. Go to counseling. You are more likely to quit if you go to counseling sessions regularly. Take medicine You may take medicines to help you quit. Some medicines need a prescription, and some you can buy [id number]. Some medicines may contain a drug called nicotine to replace the nicotine in cigarettes. Medicines may: Help you to stop having the desire to smoke (cravings). Help to stop the problems that come when you stop smoking (withdrawal symptoms). Your doctor may ask you to use: Nicotine patches, gum, or lozenges. Nicotine inhalers or sprays. Non-nicotine medicine that is taken by mouth. Find resources Find resources and other ways to help you quit smoking and remain smoke-free after you quit. These resources are most helpful when you use them often. They include: Online chats with a counselor. Phone quitlines. Printed self-help materials. Support groups or group counseling. Text messaging programs. Mobile phone apps. Use apps on your mobile phone or tablet that can help you stick to your quit plan. There are many free apps for mobile phones and tablets as well as websites. Examples include Quit Guide from the CDC and smokefree.gov What things can I do to make it easier to quit? Talk to your family and friends. Ask them to support and encourage you. Call a phone quitline (5-634-BLFQNOW), reach out to support groups, or work with a counselor. Ask people who smoke to not smoke around you. Avoid places that make you want to smoke, such as: ?Bars. ?Parties. ?Smoke-break areas at work. Spend time with people who do not smoke. Lower the stress in your life. Stress can make you want to smoke. Try these things to help your stress: ?Getting regular exercise. ?Doing deep-breathing exercises. ?Doing yoga. ?Meditating. ?Doing a body scan. To do this, close your eyes, focus on one area of your body at a time from head to toe. Notice which parts of your body are tense. Try to relax the muscles in those areas. How will I feel when I quit smoking? Day 1 to 3 weeks Within the first 24 hours, you may start to have some problems that come from quitting tobacco. These problems are very bad 2 3 days after you quit, but they do not often last for more than 2 3 weeks. You may get these symptoms: Mood swings. Feeling restless, nervous, angry, or annoyed. Trouble concentrating. Dizziness. Strong desire for high-sugar foods and nicotine. Weight gain. Trouble pooping (constipation). Feeling like you may vomit (nausea). Coughing or a sore throat. Changes in how the medicines that you take for other issues work in your body. Depression. Trouble sleeping (insomnia). Week 3 and afterward After the first 2 3 weeks of quitting, you may start to notice more positive results, such as: Better sense of smell and taste. Less coughing and sore throat. Slower heart rate. Lower blood pressure. Clearer skin. Better breathing. Fewer sick days. Quitting smoking can be hard. Do not give up if you fail the first time. Some people need to try a few times before they succeed. Do your best to stick to your quit plan, and talk with your doctor if you have any questions or concerns. Summary Smoking tobacco is the leading cause of preventable . Quitting smoking can be hard, but it is one of the best things that you can do for your health. When you decide to quit smoking, make a plan to help you succeed. Quit smoking right away, not slowly over a period of time. When you start quitting, seek help from your doctor, family, or friends. This information is not intended to replace advice given to you by your health care provider. Make sure you discuss any questions you have with your health care provider. Document Released: 08/05/2010 Document Revised: 12/27/2019 Document Reviewed: 12/28/2019 [employer] Room Patient Education 2020 [employer]. 06/25/2025 12:39:24 3- Heart Cath/PCI radial (07/2018)(CUSTOM) HEART CATHETERIZATION/PCI (radial) Discharge Instructions DIET Drink plenty of fluids for the next 48 hours to help your kidneys flush the heart cath dye out of your system ACTIVITY For the next 48 hours: Do not deep bend the wrist Do not lift, push, or pull anything over 5 pounds Do not use the hand/arm to support your weight when rising from a chair or bed Do not drive For the next 7 days: Do not submerse your procedure site in water Do not swim, wash dishes, or take tub baths You may write, eat, type, and shower WOUND CARE Keep a Band-Aid on your procedure site for the next 3-4 days Change the Band-Aid daily or if it gets wet/soiled AFTER YOU GO HOME, CALL YOUR DOCTOR FOR: Any increase in bruising or tenderness from the procedure site Any redness, pus, or other signs of infection at the site A temperature above 100.5 Severe pain at the site DIAL 911 AND RETURN TO THE HOSPITAL FOR: Any bleeding from the procedure site. The site may be bruised or tender, but it should not be bleeding at any time. If your site begins to bleed, hold firm pressure on it and dial 911 to return to the hospital Any increase in swelling at the procedure site. An increase in swelling could mean the area is bleeding under the skin. Hold firm pressure to the site and dial 911 to return to the hospital Document Released: 10/09/2006 Document Revised: 09/25/2013 Document Reviewed: 10/10/2014 ExitCare Patient Information 2015 [email or web address]. This information is not intended to replace advice given to you by your health care provider. Make sure you discuss any questions you have with your health care provider. Follow Up Care 06/16/2025 05:21:39 With:KEITH CANCHOLA MD Address: [address] [facility] [address] [facility] [place] [address]- When:Within 2 Week(s) With:Cardiac Rehab- [facility] Address: [facility] [address] [place] [address]- When: Unknown Comments:Cardiac rehabilitation is a vital part of your recovery and long-term heart health following your hospital stay. It is a medically supervised exercise and education program designed to improve your physical fitness, manage heart-related risk factors, and support emotional well-being. A cardiac rehab steam conditioner filling will contact you soon to schedule your follow-up appointment. If you have any questions please call [phone]. With:[facility], Address:Unknown When:1-2 days Comments:[facility] has been referred to provide your home care services upon discharge; a nurse will contact you upon your return home to arrange for your start of care; please call with any further questions or concerns. [facility] Address: [address] [place] [address]- [phone] When:1-2 days Comments:Please call the office to schedule a hospital follow up appointment. [facility] 06-25-2025 Cardiology Progress note Subjective Patient seen and examined bedside this morning. Denies any new concerns. Heart cath with PCI to LAD yesterday, right radial access looks clean dry and intact with good pulse. Objective Vitals and Measurements T: 36.5 C (Oral) TMIN: 36.4 C (Oral) TMAX: 37.2 C (Oral) HR: 59 RR: 16 BP: 140/62 SpO2: 96% Intake and Output Last 24 hours Intake Oral Intake 3280.00 Output Urine Voided 400.00 Stool Count 1.00 Urine Count 6.00 Total Summary Total Intake 3280.00 Total Output 400.00 Fluid Balance 2880.00 Physical Exam General Appearance:[Patient comfortably lying on bed, not in acute distress] Head:[Normocephalic, atraumatic] EENT:[PERRLA,] Neck:[supple, no JVD, no mass] Cardiac:[s1s2,RRR, no murmurs or rubs or gallops] Lungs:[clear to auscultation bilaterally, no wheeze or rhonchi or crackles] Abdomen:[soft , Nontender, no organomegaly, bowel sounds heard] Musculoskeletal:[full ROM , no gross deformities] Extremities:[no rash or ulcers or pedal edema] Neurological:[alert, oriented x 3, grossly no focal neurological deficits] Skin:[no rash or ulcers] Weight Dosing Weight: 51.5 kg (06/16/25) Medications Medications (15) Active Scheduled: (12) albuterol - ipratropium 2.5 mg-0.5 mg/3 mL Inhal Smiley UD 3 mL, Inhalation, QIDRT aspirin 81 mg Chewable 81 mg 1 tab(s), Oral, qDayM budesonide 0.5 mg/2 mL Susp UD 0.5 mg 2 mL, Inhalation, BIDRT carvedilol 6.25 mg tablet 6.25 mg 1 tab(s), Oral, BIDM clopidogrel 75 mg Tablet 75 mg 1 tab(s), Oral, qDay ezetimibe 10 mg tablet 10 mg 1 tab(s), Oral, qDay No metformin for 48 hrs post contrast 1 EA, Miscellaneous, Daily pantoprazole 40 mg EC tablet 40 mg 1 tab(s), Oral, qDayAC predniSONE 20 mg tablet 20 mg 1 tab(s), Oral, qDayM rosuvastatin 20 mg tablet 40 mg 2 tab(s), Oral, Daily sacubitril-valsartan 49-51mg oral tablet 1 tab(s), Oral, BID spironolactone 25 mg tablet 25 mg 1 tab(s), Oral, qDayM Continuous: (0) PRN: (3) albuterol - ipratropium 2.5 mg-0.5 mg/3 mL Inhal Smiley UD 3 mL, Inhalation, q2hRT dextrose 50% Solution Disp syringe 50 mL 25 gram(s) 50 mL, IV Push, AsDirected hydralazine 20 mg/mL (1mL) vial 10 mg 0.5 mL, IV Push, q2h Lab Results 06/25 03:42 WBC: 10.0 Hgb: 11.1 L Hct: 33.3 L Platelet: 341 Neutrophil %: 86.8 H Glucose Level: 134 H Sodium Level: 137 Potassium Level: 4.6 BUN: 19.0 Creatinine Lvl (s): 0.96 06/24 08:01 WBC: 13.3 H Hgb: 11.9 L Hct: 36.2 Platelet: 371 Neutrophil %: 59.4 Glucose Level: 91 Sodium Level: 139 Potassium Level: 3.8 BUN: 19.0 Creatinine Lvl (s): 1.00 EKG EKG - Completed -- 06/24/25 15:33:00 EDT, Post-procedure, Complete by Nursing Assessment/Plan CAD s/p PCI ([facility] 06/24/2025 -significant LAD disease status post PCI with residual LCx disease-medical management) Ischemic cardiomyopathy with EF 30 to 35%, not in decompensation COPD with exacerbation Hypertension Hyperlipidemia Current tobacco use 70-year-old female with a history of CAD status post PCI to RCA in , cardiomyopathy, COPD, tobacco use, bipolar admitted with shortness of breath on exertion requiring ICU stay and troponin was elevated with a peak troponin of 1085. Echocardiogram revealed EF 30 to 35% with wall motion abnormality. Underwent [facility] yesterday showing significant LAD disease with PCI to LAD and moderate disease in LCx, which is recommended to manage medically. Patient tolerated DAPT with aspirin and Plavix. Continue Coreg, Entresto and spironolactone. Okay to be discharged from cardiac standpoint. Digitally Signed by HARSH CEDILLO MD on 06/25/2025 01:39 PM [facility] 06-25-2025 Discharge summary Date of Service 06/25/2025 13:16:26 Discharge Diagnosis 1. NSTEMI with LV dysfunction (EF 30 35%), RWMA present 2. HFrEF (EF 30 35%) likely ischemic, new recognition 3. Hypertension (goal <130/80 long-term in CAD/HFrEF) 4. Lipids in ACS with recent transaminitis 5. Pre-cath renal protection (recent prerenal azotemia; now Cr ~1.1) 6. COPD (stable) 7. Tobacco use disorder Hospital Course 70-year-old woman with CAD (PCI to RCA in ; prior stents), cardiomyopathy (prior Takotsubo suspected), COPD, HTN, HLD, bipolar, tobacco use, GERD, anxiety/depression; presented with VELAZQUEZ, cough/wheeze, acute hypercapnic/hypoxic respiratory failure due to AECOPD. 06/16: Intubated at 04:30 (7.5 ETT); ventilated, started bronchodilators and systemic steroids. Initial data: VBG pH 7.02 7.08, PCO2 101 109; CXR hyperinflation; lactate 3.9; D-dimer 5358; NT-proBNP 4094; Cr 1.55; transaminitis noted. 06/17 06/19: Gradual improvement; sedation weaned; extubated and transitioned to intermittent BiPAP; passed swallow 06/19. Sputum culture negative. Prerenal-leaning azotemia with negative fluid balance; electrolytes repleted as needed. Cardiology consulted for type II block and rising troponin; telemetry/ECG with irregular rhythm. Troponin trajectory: peak 1085 (06/21). Treated as NSTEMI; on aspirin plus therapeutic unfractionated heparin infusion. Transthoracic echo 06/16: EF 30 35% with mild diffuse hypokinesis and severe hypokinesis of mid-apical anteroseptal/anterior/inferosept al/apical segments; concentric LVH; mild MR; mildly reduced RV function; estimated RA pressure 8 mmHg. Prior coronary angiography 08/2023: moderate multivessel CAD (LAD mid 50%, distal 70%; LCx mid 60%; OM1 proximal 99%; RCA proximal 50% in-stent restenosis); prior EF ~50% with hypokinesis. s/p [facility] 06/24 with PCI DC home 06/25 with DAPT and 3d 10mg prednisone. Followup with PCP and Cardiology Allergies NKA Procedures [facility] Intubation Consults No qualifying data available. Imaging Results and Diagnostics XR Chest 1 View Result Date: June 19, 2025 Verified By: BELLO AGUIRRE DO CLINICAL STATEMENT: IMPRESSION: No acute radiographic findings. Emphysema XR Chest 1 View Result Date: June 18, 2025 Verified By: GENARO NO MD CLINICAL STATEMENT: IMPRESSION: 1. Chronic obstructive pulmonary disease.2. No acute cardiopulmonary process. XR Chest 1 View Result Date: June 17, 2025 Verified By: GENARO NO MD CLINICAL STATEMENT: IMPRESSION: 1. Chronic obstructive pulmonary disease.2. No acute cardiopulmonary process. XR Chest 1 View Result Date: June 16, 2025 Verified By: ARANZA REDDY MD CLINICAL STATEMENT: IMPRESSION: 1. Endotracheal tube is visualized approximately 2.6 cm from the level of thecarina.2. Nasogastric tube is seen coursing past the level the diaphragm with sidehole at the level of the gastroesophageal junction and tip within theproximal gastric fundus, further advancement is necessary. Physical Exam Vitals and Measurements T: 36.5 C (Oral) TMIN: 36.4 C (Oral) TMAX: 37.2 C (Oral) HR: 59 RR: 16 BP: 140/62 SpO2: 96% Weight Dosing Weight: 51.5 kg (06/16/25) Exam: HEENT: Ocular ROM intact CVS: regular rate and rhythm Lungs: clear to auscultation, good air entry Abdomen: soft, non distended Extremities: No edema, No cyanosis or clubbing [employer]: Alert, No focal deficits identified. Skin: No visible rashes or Lesions Code Status Code Status - Ordered -- 06/16/25 10:01:00 EDT, Full Code, Constant Order Admission Date 06/16/25 Discharge Date 06/25/25 Patient Instructions Came in the hospital with difficulty breathing he found that she had severe COPD exacerbation in addition to concern for heart disease. treated with steroid therapy and opening up of heart blockage. Please take aspirin and Plavix along with prednisone and follow-up outpatient with your primary care and heart doctor Medications New Prescription predniSONE (predniSONE 10 mg oral tablet)1 tab(s) by mouth once a day for 3 Days. Refills: 0. spironolactone (Aldactone 25 mg oral tablet)1 tab(s) by mouth once a day with a meal for 90 Days. Refills: 3. Changed aspirin (aspirin 81 mg oral delayed release tablet)1 tab(s) by mouth every day for 90 Days. Refills: 3. clopidogrel (Plavix 75 mg oral tablet)1 tab(s) by mouth once a day for 90 Days. Refills: 3. furosemide (Lasix 40 mg oral tablet)1 tab(s) by mouth once a day for 90 Days. Refills: 1. Unchanged albuterol (albuterol MDI (90 mcg/inh) CFC free inhalation aerosol)1 puff(s) by inhalation every 4 hours as needed as needed for wheezing. Refills: 3. carvedilol (Coreg 6.25 mg oral tablet)1 tab(s) by mouth two (2) times a day. Refills: 0. ezetimibe (Zetia 10 mg oral tablet)1 tab(s) by mouth once a day. appt needed for further refills. Refills: 0. montelukast (Singulair 10 mg oral tablet)1 tab(s) by mouth once a day. oxybutynin (oxybutynin 10 mg/24 hr oral tablet, extended release)1 tab(s) by mouth once a day. potassium chloride (Klor-Con M20 oral tablet, extended release)1 tab(s) by mouth two (2) times a day. Refills: 5. rosuvastatin (Crestor 40 mg oral tablet)1 tab(s) by mouth every day. sacubitril-valsartan (Entresto 97 mg-103 mg oral tablet)1 tab(s) by mouth two (2) times a day. Refills: 2. Follow Up Follow Up with KEITH CANCHOLA MD When:In 2 weeks Where:[address] [facility] [address] [facility] [place] [address]- Follow Up with Cardiac Rehab- [facility] Where:[facility] [address] [place] [address]- Additional Information: Cardiac rehabilitation is a vital part of your recovery and long-term heart health following your hospital stay. It is a medically supervised exercise and education program designed to improve your physical fitness, manage heart-related risk factors, and support emotional well-being. A cardiac rehab steam conditioner filling will contact you soon to schedule your follow-up appointment. If you have any questions please call [phone]. Follow Up with [facility], When:Within 1-2 days Additional Information: [facility] has been referred to provide your home care services upon discharge; a nurse will contact you upon your return home to arrange for your start of care; please call with any further questions or concerns. Follow Up with ALFONSO OZUNA APRN-[facility] When:Within 1-2 days Where:[address] [place] [address]- [phone] Additional Information: Please call the office to schedule a hospital follow up appointment. Follow Up Appointments No qualifying data available. Follow Up Labs/Studies Discharge Labs No Follow-up Labs Discharge Studies No Follow-up Studies Discharge Diet No qualifying data available. Discharge Activity No qualifying data available. Condition on Discharge stable Discharge Disposition home Time Spent >30 minutes Digitally Signed by NORMA HAMILTON MD on 06/25/2025 01:18 PM [facility] 06-25-2025 Note Discharge Instructions Thank you for allowing [facility] to assist you with your healthcare needs. The following is important discharge information regarding your hospital visit. Your Care Team ALFONSO OZUNA What to do next Follow Up Appointments Follow Up with KEITH CANCHOLA MD When:In 2 weeks Where:[address] [facility] [address] [facility] [place] [address]- Follow Up with Cardiac Rehab- [facility] Where:[facility] [address] [place] [address]- Additional Information: Cardiac rehabilitation is a vital part of your recovery and long-term heart health following your hospital stay. It is a medically supervised exercise and education program designed to improve your physical fitness, manage heart-related risk factors, and support emotional well-being. A cardiac rehab steam conditioner filling will contact you soon to schedule your follow-up appointment. If you have any questions please call [phone]. Follow Up with [facility], When:Within 1-2 days Additional Information: [facility] has been referred to provide your home care services upon discharge; a nurse will contact you upon your return home to arrange for your start of care; please call with any further questions or concerns. Follow Up with ALFONSO OZUNA When:Within 1-2 days Where:[address] [place] [address]- [phone] Additional Information: Please call the office to schedule a hospital follow up appointment. The Following Activity and Diet Have Been Ordered for You No qualifying data available. No qualifying data available. The Following Equipment Has Been Ordered for You Discharge Home Equipment Discharge Home Equipment (Home Equipment on Discharge) - Ordered -- Walker; with wheels, 99 month(s), front wheeled walker, 06/25/25 11:40:00 EDT The Following Treatments Have Been Ordered for You Discharge Labs No qualifying data available. Discharge Radiology No qualifying data available. Other Therapies No qualifying data available. Post Acute Orders No qualifying data available. Someone Will Contact You Regarding These Home Health Referrals Consult Home Health - OT - Ordered -- 06/25/25 11:39:00 EDT, Home Therapy Order: OT Eval & Treat, Home Therapy Instruction: Full weight bearing, Reason: ADL assistance Consult Home Health - PT - Ordered -- 06/25/25 11:39:00 EDT, Home Therapy Order: PT Eval & Treat, Reason: General Debility, Home Therapy Instruction: Full weight bearing Consult Home Health - RN (Home Health RN Consult) - Ordered -- 06/25/25 11:39:00 EDT, Reason: Disease management Medication management Allergies NKA Medications Please ask your primary doctor or pharmacist before taking any other medication not listed, including over the counter drugs, herbal medications, vitamins and or supplements as they may interact with your home medications. What How Much When Instructions Last Dose New spironolactone (Aldactone 25 mg oral tablet) 1 tab(s) by mouth Once a day with a meal Duration: 90 Days Refills: 3 Pickup at [facility] Changed aspirin (aspirin 81 mg oral delayed release tablet) 1 tab(s) by mouth Every day Duration: 90 Days Pickup at [facility] Changed clopidogrel (Plavix 75 mg oral tablet) 1 tab(s) by mouth Once a day Duration: 90 Days Pickup at [facility] Changed furosemide (Lasix 40 mg oral tablet) 1 tab(s) by mouth Once a day Duration: 90 Days Pickup at [facility] Unchanged albuterol (albuterol MDI (90 mcg/ inh) CFC free inhalation aerosol) 1 puff(s) by inhalation Every 4 hours as needed for as needed for wheezing Unchanged carvedilol (Coreg 6.25 mg oral tablet) 1 tab(s) by mouth Two (2) times a day Unchanged ezetimibe (Zetia 10 mg oral tablet) 1 tab(s) by mouth Once a day appt needed for further refills Unchanged montelukast (Singulair 10 mg oral tablet) 1 tab(s) by mouth Once a day Unchanged oxybutynin (oxybutynin 10 mg/ 24 hr oral tablet, extended release) 1 tab(s) by mouth Once a day Unchanged potassium chloride (Klor-Con M20 oral tablet, extended release) 1 tab(s) by mouth Two (2) times a day Unchanged rosuvastatin (Crestor 40 mg oral tablet) 1 tab(s) by mouth Every day Unchanged sacubitril-valsartan (Entresto 97 mg-103 mg oral tablet) 1 tab(s) by mouth Two (2) times a day Pharmacy Information [facility]: [address], [place] [id number] [phone] Please take this list to your next doctor s visit. Bring all medications you take, including over the counter medications, herbals and other supplements with you to your doctor s visit. Patients and families are reminded to discard old lists and to update any records with all medication providers or retail pharmacies. Medication Leaflets spironolactone (spir ON [place] tone) Aldactone, CaroSpir What is the most important information I should know about spironolactone? You should not use spironolactone if you Meagher's disease, high levels of potassium in your blood, if you are unable to urinate, or if you are also taking eplerenone. What is spironolactone? Spironolactone is a potassium-sparing diuretic (water pill) that prevents your body from absorbing too much salt and keeps your potassium levels from getting too low. Spironolactone is used to treat heart failure, high blood pressure (hypertension), or hypokalemia (low potassium levels in the blood). Spironolactone also treats fluid retention (edema) in people with congestive heart failure, cirrhosis of the liver, or a kidney disorder called nephrotic syndrome. Spironolactone is also used to diagnose or treat a condition in which you have too much aldosterone in your body. Aldosterone is a hormone produced by your adrenal glands to help regulate the salt and water balance in your body. Spironolactone may also be used for purposes not listed in this medication guide. What should I discuss with my healthcare provider before taking spironolactone? You should not use spironolactone if you are allergic to it, or if you have: Meagher's disease (an adrenal gland disorder); high levels of potassium in your blood (hyperkalemia); if you are unable to urinate; or if you are also taking eplerenone. Tell your doctor if you have ever had: an electrolyte imbalance (such as low levels of calcium, magnesium, or sodium in your blood); kidney disease; liver disease; or heart disease. Tell your doctor if you are or plan to become . Having congestive heart failure, cirrhosis, or uncontrolled high blood pressure during may lead to medical problems in the mother or the baby. Your doctor should decide whether you take spironolactone if you are . It may not be safe to breastfeed while using this medicine. Ask your doctor about any risk. How should I take spironolactone? Follow all directions on your prescription label and read all medication guides or instruction sheets. Your doctor may occasionally change your dose. Use the medicine exactly as directed. Do not share this medicine with another person, even if they have the same symptoms you have. You may take spironolactone with or without food, but take it the same way each time. You will need frequent medical tests. This medicine can affect the results of certain medical tests. Tell any doctor who treats you that you are using spironolactone. If you need surgery, tell your surgeon you currently use this medicine. You may need to stop for a short time. If you are being treated for high blood pressure, keep using this medication even if you feel well. High blood pressure often has no symptoms. You may need to use blood pressure medication for the rest of your life. Store at room temperature away from heat, light, and moisture. What happens if I miss a dose? Take the medicine as soon as you can, but skip the missed dose if it is almost time for your next dose. Do not take two doses at one time. What happens if I overdose? Seek emergency medical attention or call the Poison Help line at . What should I avoid while taking spironolactone? Drinking alcohol can increase certain side effects. Do not use potassium supplements or salt substitutes, unless your doctor has told you to. Avoid a diet high in salt. Too much salt will cause your body to retain water and can make this medication less effective. Avoid driving or hazardous activity until you know how this medicine will affect you. Your reactions could be impaired. Avoid getting up too fast from a sitting or lying position, or you may feel dizzy. What are the possible side effects of spironolactone? Get emergency medical help if you have signs of an allergic reaction: hives; difficulty breathing; swelling of your face, lips, tongue, or throat. Call your doctor at once if you have: a light-headed feeling, like you might pass out; little or no urination; high potassium level--nausea, weakness, tingly feeling, chest pain, irregular heartbeats, loss of movement; o signs of other electrolyte imbalances--increased thirst or urination, confusion, vomiting, muscle pain, slurred speech, severe weakness, numbness, loss of coordination, feeling unsteady. Common side effects may include: breast swelling or tenderness. This is not a complete list of side effects and others may occur. Call your doctor for medical advice about side effects. You may report side effects to FDA at 6-601-BFX-0635. What other drugs will affect spironolactone? Using spironolactone with other drugs that make you dizzy can worsen this effect. Ask your doctor before using opioid medication, a sleeping pill, a muscle relaxer, or medicine for anxiety, depression, or seizures. Tell your doctor about all your other medicines, especially: colchicine; digoxin; lithium; loperamide; trimethoprim; heart or blood pressure medicine (especially another diuretic); medicine to prevent a blood clot; or NSAIDs (nonsteroidal anti-inflammatory drugs)--aspirin, ibuprofen (Advil, Motrin), naproxen (Aleve), celecoxib, diclofenac, indomethacin, meloxicam, and others. This list is not complete. Other drugs may affect spironolactone, including prescription and gtjq-les-nisjbsp medicines, vitamins, and herbal products. Not all possible drug interactions are listed here. Where can I get more information? Your pharmacist can provide more information about spironolactone. Remember, keep this and all other medicines out of the reach of children, never share your medicines with others, and use this medication only for the indication prescribed. Every effort has been made to ensure that the information provided by [employer]. ('[employer]') is accurate, up-to-date, and complete, but no guarantee is made to that effect. Drug information contained herein may be time sensitive. [employer] information has been compiled for use by healthcare practitioners and consumers in the [place] and therefore [employer] does not warrant that uses outside of the [place] are appropriate, unless specifically indicated otherwise. [employer] drug information does not endorse drugs, diagnose patients or recommend therapy. [employer] drug information is an informational resource designed to assist licensed healthcare practitioners in caring for their patients and/or to serve consumers viewing this service as a supplement to, and not a substitute for, the expertise, skill, knowledge and judgment of healthcare practitioners. The absence of a warning for a given drug or drug combination in no way should be construed to indicate that the drug or drug combination is safe, effective or appropriate for any given patient. [employer] does not assume any responsibility for any aspect of healthcare administered with the aid of information [employer] provides. The information contained herein is not intended to cover all possible uses, directions, precautions, warnings, drug interactions, allergic reactions, or adverse effects. If you have questions about the drugs you are taking, check with your doctor, nurse or pharmacist. Copyright 7772-8301 [employer]. Version: .. Revision Date: 01/04/2020. Education Materials Steps to Quit Smoking Smoking tobacco is the leading cause of preventable . It can affect almost every organ in the body. Smoking puts you and people around you at risk for many serious, long-lasting (chronic) diseases. Quitting smoking can be hard, but it is one of the best things that you can do for your health. It is never too late to quit. How do I get ready to quit? When you decide to quit smoking, make a plan to help you succeed. Before you quit: Pick a date to quit. Set a date within the next 2 weeks to give you time to prepare. Write down the reasons why you are quitting. Keep this list in places where you will see it often. Tell your family, friends, and co-workers that you are quitting. Their support is important. Talk with your doctor about the choices that may help you quit. Find out if your health insurance will pay for these treatments. Know the people, places, things, and activities that make you want to smoke (triggers). Avoid them. What first steps can I take to quit smoking? Throw away all cigarettes at home, at work, and in your car. Throw away the things that you use when you smoke, such as ashtrays and lighters. Clean your car. Make sure to empty the ashtray. Clean your home, including curtains and carpets. What can I do to help me quit smoking? Talk with your doctor about taking medicines and seeing a counselor at the same time. You are more likely to succeed when you do both. If you are or , talk with your doctor about counseling or other ways to quit smoking. Do not take medicine to help you quit smoking unless your doctor tells you to do so. To quit smoking: Quit right away Quit smoking totally, instead of slowly cutting back on how much you smoke over a period of time. Go to counseling. You are more likely to quit if you go to counseling sessions regularly. Take medicine You may take medicines to help you quit. Some medicines need a prescription, and some you can buy xpal-txx-wfsvxax. Some medicines may contain a drug called nicotine to replace the nicotine in cigarettes. Medicines may: Help you to stop having the desire to smoke (cravings). Help to stop the problems that come when you stop smoking (withdrawal symptoms). Your doctor may ask you to use: Nicotine patches, gum, or lozenges. Nicotine inhalers or sprays. Non-nicotine medicine that is taken by mouth. Find resources Find resources and other ways to help you quit smoking and remain smoke-free after you quit. These resources are most helpful when you use them often. They include: Online chats with a counselor. Phone quitlines. Printed self-help materials. Support groups or group counseling. Text messaging programs. Mobile phone apps. Use apps on your mobile phone or tablet that can help you stick to your quit plan. There are many free apps for mobile phones and tablets as well as websites. Examples include Quit Guide from the CDC and smokefree.gov What things can I do to make it easier to quit? Talk to your family and friends. Ask them to support and encourage you. Call a phone quitline (4-489-ZDIR-NOW), reach out to support groups, or work with a counselor. Ask people who smoke to not smoke around you. Avoid places that make you want to smoke, such as: ? Bars. ? Parties. ? Smoke-break areas at work. Spend time with people who do not smoke. Lower the stress in your life. Stress can make you want to smoke. Try these things to help your stress: ? Getting regular exercise. ? Doing deep-breathing exercises. ? Doing yoga. ? Meditating. ? Doing a body scan. To do this, close your eyes, focus on one area of your body at a time from head to toe. Notice which parts of your body are tense. Try to relax the muscles in those areas. How will I feel when I quit smoking? Day 1 to 3 weeks Within the first 24 hours, you may start to have some problems that come from quitting tobacco. These problems are very bad 2 3 days after you quit, but they do not often last for more than 2 3 weeks. You may get these symptoms: Mood swings. Feeling restless, nervous, angry, or annoyed. Trouble concentrating. Dizziness. Strong desire for high-sugar foods and nicotine. Weight gain. Trouble pooping (constipation). Feeling like you may vomit (nausea). Coughing or a sore throat. Changes in how the medicines that you take for other issues work in your body. Depression. Trouble sleeping (insomnia). Week 3 and afterward After the first 2 3 weeks of quitting, you may start to notice more positive results, such as: Better sense of smell and taste. Less coughing and sore throat. Slower heart rate. Lower blood pressure. Clearer skin. Better breathing. Fewer sick days. Quitting smoking can be hard. Do not give up if you fail the first time. Some people need to try a few times before they succeed. Do your best to stick to your quit plan, and talk with your doctor if you have any questions or concerns. Summary Smoking tobacco is the leading cause of preventable . Quitting smoking can be hard, but it is one of the best things that you can do for your health. When you decide to quit smoking, make a plan to help you succeed. Quit smoking right away, not slowly over a period of time. When you start quitting, seek help from your doctor, family, or friends. This information is not intended to replace advice given to you by your health care provider. Make sure you discuss any questions you have with your health care provider. Document Released: 08/05/2010 Document Revised: 12/27/2019 Document Reviewed: 12/28/2019 Elsevier Patient Education 2019 [employer]. HEART CATHETERIZATION/PCI (radial) Discharge Instructions DIET Drink plenty of fluids for the next 48 hours to help your kidneys flush the heart cath dye out of your system ACTIVITY For the next 48 hours: Do not deep bend the wrist Do not lift, push, or pull anything over 5 pounds Do not use the hand/arm to support your weight when rising from a chair or bed Do not drive For the next 7 days: Do not submerse your procedure site in water Do not swim, wash dishes, or take tub baths You may write, eat, type, and shower WOUND CARE Keep a Band-Aid on your procedure site for the next 3-4 days Change the Band-Aid daily or if it gets wet/soiled AFTER YOU GO HOME, CALL YOUR DOCTOR FOR: Any increase in bruising or tenderness from the procedure site Any redness, pus, or other signs of infection at the site A temperature above 100.5 Severe pain at the site DIAL 911 AND RETURN TO THE HOSPITAL FOR: Any bleeding from the procedure site. The site may be bruised or tender, but it should not be bleeding at any time. If your site begins to bleed, hold firm pressure on it and dial 911 to return to the hospital Any increase in swelling at the procedure site. An increase in swelling could mean the area is bleeding under the skin. Hold firm pressure to the site and dial 911 to return to the hospital Document Released: 10/09/2006 Document Revised: 09/25/2013 Document Reviewed: 10/10/2014 ExitCare Patient Information 2015 [facility]. This information is not intended to replace advice given to you by your health care provider. Make sure you discuss any questions you have with your health care provider. Additional Information VACCINATE! IT SAVES LIVES! Members of the community who have not yet received the COVID-19 vaccine and would like to receive it can visit one of [facility] vaccine clinics. There are many vaccine clinic locations within the [facility]. For locations and available times, please visit https://[email or web address].o hio.gov/. It is important to note that some COVID mobile vaccine clinics are held outdoors and may be canceled in rainy or stormy conditions. To learn more about pediatric vaccinations (ages 5-11), we invite you to visit the [facility] webpage. https://www.[facility].org/p ages/9521-Pkhnw-Cfklvugyfbx-Freq olretl-Oefij-Avjucalwy.html To learn more about the COVID-19 vaccine, we invite you to visit the CDC website for a list of frequently asked questions.https://www.cdc.gov/co ronavirus/2019-ncov/vaccines/faq .html [employer] Patient Portal Access Instructions: Stay connected with your healthcare team and access your personal medical information anytime with the [employer] Patient Portal. Please follow the directions below to create your [employer] account: 1.Access the email account you provided upon registration to the hospital/physician office.2.Look for an invitation email from [facility].3.Open the email and access the invitation link: Accept Invitation to [employer].4.Fill in the required lr to create your account. To access your account, visit [email or web address]. Click the blue button labeled Access Patient Portal and then log in with the username and password that you created in the steps above. You will be able to view your test results, lab results, a summary of your visits, upcoming appointments and more. There is also a convenient messaging option where you can send secure messages to your provider. In addition, you will have the ability to download any documents or summaries to your computer and/or send the information securely to a physician. Remember that your healthcare information is confidential, so carefully consider who you will allow to register on the [employer] [facility] [facility] Patient Portal for access to your information. You can also access the [employer] Patient Portal on the [employer]where benitez. Simply click on Patient Portal and then log into your account. If you would like to receive a full copy of your medical records, please contact the [facility] Medical Records Department by calling [phone], Monday through Monday between 8 a.m. and 4:30 p.m. HOW TO SAFELY DISPOSE OF PRESCRIPTION MEDICATIONS Please use one of the following methods to safely dispose of your unused medications. 1.Use a drug disposal kit: the drug disposal pouch allows you to safely discard your old and unused drugs. Ask your nurse to give you one when you are discharged.2.Visit a local take-back location: Many local pharmacies and police departments have programs that collect old and unwanted prescription drugs. Call your local pharmacy or go to http://[employer].Femasys/4P6Nc0z to find one close to you.3.Make use of household items: Use cat litter or old coffee grounds to dispose medications if other options are not available. Mix your drugs with these household products, seal them in an airtight container and throw it into the garbage. Call [facility]: [phone] to be sure your drugs can be disposed of in this way. Some medicines may require a different approach.4.Never flush your medications down the toilet. IF YOU HAVE BEEN PRESCRIBED AN OPIOID FOR PAIN If you have been prescribed an opioid (such as hydrocodone, oxycodone or morphine), it is critical to understand the possible side effects and risks of opioid pain medications. Even when taken as directed, opioids can have several side effects including: Tolerance, meaning you might need to take more of a medication for the same pain relief. Nausea, vomiting and/or constipation. Sleepiness, dizziness, dry mouth, confusion, depression or itching. Physical dependence, meaning you have withdrawal symptoms when a medication is stopped, can develop within a few days. KNOW YOUR RESPONSIBILITIES It is important to know exactly how much and how often to take the opioid pain medications you are prescribed. Never take opioids in higher amounts or more often than prescribed. Do not combine opioids with alcohol or other drugs that cause drowsiness, such as benzodiazepines, also known as benzos, including diazepam and alprazolam, muscle relaxants or sleep aids. Never sell or share prescription opioids. This is illegal. Store opioids in a secure place and out of reach of others (including children, family, friends and visitors). The last page of this document has been signed and retained as a CHART COPY. Signatures Patient Education Materials Steps to Quit Smoking, Crkg-ur-Wutk 3- Heart Cath/PCI radial (07/2018)(CUSTOM) Medication Leaflets spironolactone My discharge plan and instructions have been reviewed and explained to me and IARACELIS MELODIE L understand my current condition and have read and understand these discharge instructions. I have received a written copy of the plan/instructions. If I have questions, I am aware that I should contact my doctor. 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 Signature: Date/Time: Relationship to Patient: Witness Name/Signature: Date/Time: [facility] 06-24-2025 Note Exam Date Time Procedure Performing Provider Status 06/24/25 6:43 PM Electrocardiogram - EKG - CV MARY BERNAL MD; Auth (Verified) ECG Final Report SINUS RHYTHM LOW VOLTAGE, EXTREMITY LEADS NONSPECIFIC T ABNRM, ANTEROLATERAL LEADS Electronic Signature: OWEN BERNAL MD 06/25/2025 11:40:06 [id number] Cardiology Progress note Date of Service 06/24/2025 Subjective 70-year-old female with a history of CAD status post PCI to RCA in , cardiomyopathy, COPD, tobacco use, bipolar admitted with shortness of breath on exertion requiring ICU stay and troponin was elevated with a peak troponin of 1085. Echocardiogram revealed EF 30 to 35% with wall motion abnormality. Currently denies any chest pain. No significant arrhythmias and Telemetry. She is scheduled for left heart cath today Objective Vitals and Measurements T: 36.6 C (Oral) TMIN: 36.6 C (Oral) TMAX: 36.9 C (Oral) HR: 67 RR: 16 BP: 194/95 SpO2: 95% Intake and Output Last 24 hours Intake Medication 0.50 Oral Intake 530.00 Output Stool Count 0.00 Urine Count 4.00 Total Summary Total Intake 530.50 Total Output 0.00 Fluid Balance 530.50 Physical Exam General Appearance:[Patient comfortably lying on bed, not in acute distress] Head:[Normocephalic, atraumatic] EENT:[PERRLA,] Neck:[supple, no JVD, no mass] Cardiac:[s1s2,RRR, no murmurs or rubs or gallops] Lungs:[clear to auscultation bilaterally, no wheeze or rhonchi or crackles] Abdomen:[soft , Nontender, no organomegaly, bowel sounds heard] Musculoskeletal:[full ROM , no gross deformities] Extremities:[no rash or ulcers or pedal edema] Neurological:[alert, oriented x 3, grossly no focal neurological deficits] Skin:[no rash or ulcers] Weight Dosing Weight: 51.5 kg (06/16/25) Medications Medications (15) Active Scheduled: (10) albuterol - ipratropium 2.5 mg-0.5 mg/3 mL Inhal Smiley UD 3 mL, Inhalation, QIDRT aspirin 81 mg Chewable 81 mg 1 tab(s), Oral, qDayM budesonide 0.5 mg/2 mL Susp UD 0.5 mg 2 mL, Inhalation, BIDRT carvedilol 6.25 mg tablet 6.25 mg 1 tab(s), Oral, BIDM ezetimibe 10 mg tablet 10 mg 1 tab(s), Oral, qDay pantoprazole 40 mg EC tablet 40 mg 1 tab(s), Oral, qDayAC predniSONE 20 mg tablet 20 mg 1 tab(s), Oral, qDayM rosuvastatin 20 mg tablet 40 mg 2 tab(s), Oral, Daily sacubitril-valsartan 49-51mg oral tablet 1 tab(s), Oral, BID spironolactone 25 mg tablet 25 mg 1 tab(s), Oral, qDayM Continuous: (1) heparin 25,000 unit(s) [12 unit(s)/kg/hr] + Dextrose 5% Premix Diluent 250 mL 250 mL, Intravenous, 6.18 mL/hr PRN: (4) albuterol - ipratropium 2.5 mg-0.5 mg/3 mL Inhal Smiley UD 3 mL, Inhalation, q2hRT dextrose 50% Solution Disp syringe 50 mL 25 gram(s) 50 mL, IV Push, AsDirected heparin 5,000 units/mL (1 mL) vial 3,090 unit(s) 0.62 mL, IV Push, q6h hydralazine 20 mg/mL (1mL) vial 10 mg 0.5 mL, IV Push, q2h Lab Results 06/24 08:01 WBC: 13.3 H Hgb: 11.9 L Hct: 36.2 Platelet: 371 Neutrophil %: 59.4 Glucose Level: 91 Sodium Level: 139 Potassium Level: 3.8 BUN: 19.0 Creatinine Lvl (s): 1.00 06/23 06:11 WBC: 11.8 H Hgb: 11.4 L Hct: 34.8 Platelet: 324 Neutrophil %: 58.0 Glucose Level: 90 Sodium Level: 138 Potassium Level: 4.5 BUN: 25.0 H Creatinine Lvl (s): 1.02 EKG No qualifying data available. Assessment/Plan Orders: sacubitril-valsartan(Entresto 49 mg-51 mg oral tablet), 1 tab(s), Oral, BID spironolactone(Aldactone), 25 mg= 1 tab(s), Oral, qDayM Impression: 1. Elevated troponin likely NSTEMI 2. Cardiomyopathy likely ischemic with EF 30 to 35% 3. Hypertension 4. Hyperlipidemia 5. Ongoing tobacco use Plan: Currently she is euvolemic and well compensated. Currently not having any anginal symptoms. Continue with aspirin and heparin drip. Continue the current dose of carvedilol will start Entresto and Aldactone, on high intensity statin therapy. Will plan for coronary angiogram on Monday. As we are able to taper off steroids, the easier to control. Strongly advised her to stop smoking completely. Cardiology will continue to follow. Digitally Signed by JESUSITA SOARES MD on 06/24/2025 02:13 PM [facility] [id number] Cardiology Progress note Date of Service 06/24/25 [facility] Significant LAD disease s/p PCI Aspirin and Plavix Residual Left CRx disease for medical management Digitally Signed by CLAUDE MEADOWS MD on 06/24/2025 03:34 PM [facility] [id number] Cardiology Progress note Date of Service 06/24/2025 Subjective 70-year-old female with a history of CAD status post PCI to RCA in , cardiomyopathy, COPD, tobacco use, bipolar admitted with shortness of breath on exertion requiring ICU stay and troponin was elevated with a peak troponin of 1085. Echocardiogram revealed EF 30 to 35% with wall motion abnormality. Currently denies any chest pain. No significant arrhythmias and Telemetry. She is scheduled for left heart cath today Objective Vitals and Measurements T: 36.6 C (Oral) TMIN: 36.6 C (Oral) TMAX: 36.9 C (Oral) HR: 67 RR: 16 BP: 194/95 SpO2: 95% Intake and Output Last 24 hours Intake Medication 0.50 Oral Intake 530.00 Output Stool Count 0.00 Urine Count 4.00 Total Summary Total Intake 530.50 Total Output 0.00 Fluid Balance 530.50 Physical Exam General Appearance:[Patient comfortably lying on bed, not in acute distress] Head:[Normocephalic, atraumatic] EENT:[PERRLA,] Neck:[supple, no JVD, no mass] Cardiac:[s1s2,RRR, no murmurs or rubs or gallops] Lungs:[clear to auscultation bilaterally, no wheeze or rhonchi or crackles] Abdomen:[soft , Nontender, no organomegaly, bowel sounds heard] Musculoskeletal:[full ROM , no gross deformities] Extremities:[no rash or ulcers or pedal edema] Neurological:[alert, oriented x 3, grossly no focal neurological deficits] Skin:[no rash or ulcers] Weight Dosing Weight: 51.5 kg (06/16/25) Medications Medications (15) Active Scheduled: (10) albuterol - ipratropium 2.5 mg-0.5 mg/3 mL Inhal Smiley UD 3 mL, Inhalation, QIDRT aspirin 81 mg Chewable 81 mg 1 tab(s), Oral, qDayM budesonide 0.5 mg/2 mL Susp UD 0.5 mg 2 mL, Inhalation, BIDRT carvedilol 6.25 mg tablet 6.25 mg 1 tab(s), Oral, BIDM ezetimibe 10 mg tablet 10 mg 1 tab(s), Oral, qDay pantoprazole 40 mg EC tablet 40 mg 1 tab(s), Oral, qDayAC predniSONE 20 mg tablet 20 mg 1 tab(s), Oral, qDayM rosuvastatin 20 mg tablet 40 mg 2 tab(s), Oral, Daily sacubitril-valsartan 49-51mg oral tablet 1 tab(s), Oral, BID spironolactone 25 mg tablet 25 mg 1 tab(s), Oral, qDayM Continuous: (1) heparin 25,000 unit(s) [12 unit(s)/kg/hr] + Dextrose 5% Premix Diluent 250 mL 250 mL, Intravenous, 6.18 mL/hr PRN: (4) albuterol - ipratropium 2.5 mg-0.5 mg/3 mL Inhal Smiley UD 3 mL, Inhalation, q2hRT dextrose 50% Solution Disp syringe 50 mL 25 gram(s) 50 mL, IV Push, AsDirected heparin 5,000 units/mL (1 mL) vial 3,090 unit(s) 0.62 mL, IV Push, q6h hydralazine 20 mg/mL (1mL) vial 10 mg 0.5 mL, IV Push, q2h Lab Results 06/24 08:01 WBC: 13.3 H Hgb: 11.9 L Hct: 36.2 Platelet: 371 Neutrophil %: 59.4 Glucose Level: 91 Sodium Level: 139 Potassium Level: 3.8 BUN: 19.0 Creatinine Lvl (s): 1.00 06/23 06:11 WBC: 11.8 H Hgb: 11.4 L Hct: 34.8 Platelet: 324 Neutrophil %: 58.0 Glucose Level: 90 Sodium Level: 138 Potassium Level: 4.5 BUN: 25.0 H Creatinine Lvl (s): 1.02 EKG No qualifying data available. Assessment/Plan Orders: sacubitril-valsartan(Entresto 49 mg-51 mg oral tablet), 1 tab(s), Oral, BID spironolactone(Aldactone), 25 mg= 1 tab(s), Oral, qDayM Impression: 1. Elevated troponin likely NSTEMI 2. Cardiomyopathy likely ischemic with EF 30 to 35% 3. Hypertension 4. Hyperlipidemia 5. Ongoing tobacco use Plan: Currently she is euvolemic and well compensated. Currently not having any anginal symptoms. Continue with aspirin and heparin drip. Continue the current dose of carvedilol will start Entresto and Aldactone, on high intensity statin therapy. Will plan for coronary angiogram on Monday. As we are able to taper off steroids, the easier to control. Strongly advised her to stop smoking completely. Cardiology will continue to follow. Digitally Signed by JESUSITA SOARES MD on 06/24/2025 02:13 PM [facility] [id number] Note Date of Service 06/24/25 Chief Complaint COPD, resp failure Subjective 70-year-old woman with CAD, COPD, HTN, HLD, tobacco use, suspected prior Takotsubo. Admitted 06/16 with AECOPD and NSTEMI (peak troponin 1085). Extubated and stable on room air. TTE 06/16 EF 30 35% with RWMA. 06/24 LHC: significant LAD disease -> PCI with stent; residual LCx disease for medical management. No current angina, euvolemic, tolerating room air. Today: Discussed the plan for cath today. Reassured the patient as she noted she was nervous. Answered anyand all questions. Objective Vitals and Measurements T: 36.7 C (Oral) TMIN: 36.7 C (Oral) TMAX: 36.9 C (Oral) HR: 68 RR: 16 BP: 174/83 SpO2: 98% Intake and Output Last 24 hours Intake Medication 0.50 Oral Intake 730.00 Output Stool Count 1.00 Urine Count 7.00 Total Summary Total Intake 730.50 Total Output 0.00 Fluid Balance 730.50 Physical Exam General Appearance: Appears to be stable and in no acute distress. Head: Atraumatic and normocephalic. EENT: EOMI, PERRLA, no oropharyngeal erythema, no tonsillar exudates, no conjunctival injection, sclera anicteric. Neck: No thyromegaly, no cervical lymphadenopathy, trachea midline. Cardiac: S1 and S2 normal. RRR. No murmurs, rubs, or gallops. No JVD. No hepatojugular reflex. Lungs: Slightly diminished bilaterally. No increased work for breathing. No wheezes, rhonchi, or rales. Abdomen: Soft, nontender, nondistended. Normoactive bowel sounds. No rebound or guarding. Musculoskeletal: Full range of motion upper and lower extremities. Extremities: No lower extremity pitting edema. 2+ radial and pedal pulses bilaterally. Neurological: No focal neurological deficits. Skin: No abrasions, scars, or hematomas on visible skin. Diffuse leathery appearing skin. Psychiatric: Alert and oriented, well groomed, euthymic, cooperative. Weight Dosing Weight: 51.5 kg (06/16/25) Medications Medications (15) Active Scheduled: (10) albuterol - ipratropium 2.5 mg-0.5 mg/3 mL Inhal Smiley UD 3 mL, Inhalation, QIDRT amLODIPine 5 mg tablet 5 mg 1 tab(s), Oral, qDay aspirin 81 mg Chewable 81 mg 1 tab(s), Oral, qDayM budesonide 0.5 mg/2 mL Susp UD 0.5 mg 2 mL, Inhalation, BIDRT carvedilol 6.25 mg tablet 6.25 mg 1 tab(s), Oral, BIDM ezetimibe 10 mg tablet 10 mg 1 tab(s), Oral, qDay losartan 100 mg tablet 100 mg 1 tab(s), Oral, qDay pantoprazole 40 mg EC tablet 40 mg 1 tab(s), Oral, qDayAC predniSONE 20 mg tablet 20 mg 1 tab(s), Oral, qDayM rosuvastatin 20 mg tablet 40 mg 2 tab(s), Oral, Daily Continuous: (1) heparin 25,000 unit(s) [12 unit(s)/kg/hr] + Dextrose 5% Premix Diluent 250 mL 250 mL, Intravenous, 6.18 mL/hr PRN: (4) albuterol - ipratropium 2.5 mg-0.5 mg/3 mL Inhal Smiley UD 3 mL, Inhalation, q2hRT dextrose 50% Solution Disp syringe 50 mL 25 gram(s) 50 mL, IV Push, AsDirected heparin 5,000 units/mL (1 mL) vial 3,090 unit(s) 0.62 mL, IV Push, q6h hydralazine 20 mg/mL (1mL) vial 10 mg 0.5 mL, IV Push, q2h Lab Results 06/23 06:11 WBC: 11.8 H Hgb: 11.4 L Hct: 34.8 Platelet: 324 Neutrophil %: 58.0 Glucose Level: 90 Sodium Level: 138 Potassium Level: 4.5 BUN: 25.0 H Creatinine Lvl (s): 1.02 Imaging Results and Diagnostics XR Chest 1 View Result Date: June 19, 2025 Verified By: BELLO AGUIRRE DO CLINICAL STATEMENT: IMPRESSION: No acute radiographic findings. Emphysema XR Chest 1 View Result Date: June 18, 2025 Verified By: GENARO NO MD CLINICAL STATEMENT: IMPRESSION: 1. Chronic obstructive pulmonary disease.2. No acute cardiopulmonary process. XR Chest 1 View Result Date: June 17, 2025 Verified By: MARYBEL PAREDES GENARO [place] CLINICAL STATEMENT: IMPRESSION: 1. Chronic obstructive pulmonary disease.2. No acute cardiopulmonary process. XR Chest 1 View Result Date: June 16, 2025 Verified By: ARANZA REDDY MD CLINICAL STATEMENT: IMPRESSION: 1. Endotracheal tube is visualized approximately 2.6 cm from the level of thecarina.2. Nasogastric tube is seen coursing past the level the diaphragm with sidehole at the level of the gastroesophageal junction and tip within theproximal gastric fundus, further advancement is necessary. EKG No qualifying data available. Assessment/Plan Orders: .Auto Differential, Timed Study (collect at specified time), Blood, Once, Preferred Lab: Other lab service, Stop date 06/24/25 8:05:00 EDT, [id number] .Neutro Absolute, Timed Study (collect at specified time), Blood, Once, Preferred Lab: Other lab service, Stop date 06/24/25 8:05:00 EDT, [id number] APTT, 06/24/25 8:00:00 EDT, Timed Study (collect at specified time), Blood, Once, Preferred Lab: Other lab service, Stop date 06/24/25 8:00:00 EDT Basic Metabolic Panel(BMP), 06/25/25 5:00:00 EDT, Timed Study (collect at specified time), Blood, q24h, for 14 day(s), Stop date 07/08/25 5:00:00 EDT Complete Metabolic Panel(CMP), 06/24/25 5:00:00 EDT, Timed Study (collect at specified time), Blood, Once, Preferred Lab: Other lab service, Stop date 06/24/25 5:00:00 EDT NPO after Midnight, 06/23/25 23:58:00 EDT, Constant Order, For [facility] on Sunday 06/24 NSTEMI (peak troponin 1085) s/p PCI to LAD, residual LCx disease for medical therapy Now on DAPT (ASA 81 mg + clopidogrel 75 mg daily; confirm 600 mg load given). UFH infusion should be stopped post-PCI unless interventional requests otherwise. Telemetry overnight; monitor for angina, ST changes, bleeding. Access site checks Q4h; lashawn hematoma if present. VTE prophylaxis: once UFH gtt is off and hemostasis secure, resume SQ heparin 5,000 units q8 12h orenoxaparin 40 mg SC daily. NSTEMI (peak troponin 1085) s/p PCI to LAD, residual LCx disease for medical therapy Now on DAPT (ASA 81 mg + clopidogrel 75 mg daily; confirm 600 mg load given). UFH infusion should be stopped post-PCI unless interventional requests otherwise. Telemetry overnight; monitor for angina, ST changes, bleeding. Access site checks Q4h; lashawn hematoma if present. VTE prophylaxis: once UFH gtt is off and hemostasis secure, resume SQ heparin 5,000 units q8 12h orenoxaparin 40 mg SC daily. HFrEF (EF 30 35%) likely ischemic Carvedilol 6.25 mg BID (hold HR <55/SBP <100, monitor for bronchospasm); consider metoprolol succinate if COPD symptoms recur. Losartan 100 mg daily; plan transition to sacubitril/valsartan when stable post-PCI. Start spironolactone 12.5 mg daily tonight (K 3.8, Cr 1.0, eGFR 60). Recheck BMP in 2 3 days and 1 week. Consider SGLT2i (dapagliflozin 10 mg or empagliflozin 10 mg) tomorrow if stable. Continue furosemide 40 mg daily PRN; hold if euvolemic. Hypertension Current BP 130 150 systolic; continue losartan and carvedilol. Goal <130/80 assisted, but avoid rapid inpatient lowering. Lipids Rosuvastatin 40 mg nightly + ezetimibe 10 mg daily. LFTs: AST 44, ALT 74 (<3 ULN); safe to continue. Repeat hepatic panel in 1 2 weeks. Electrolytes K 3.8 -> give 40 mEq KCl PO/IV tonight; recheck in AM. Mg 2.2 adequate; replete only if <2.0. COPD (improved) Continue ipratropium/albuterol QID + PRN, budesonide neb BID. Complete prednisone 40 mg PO daily 5 days (today = day 5). Remove duplicate prednisone 20 mg MAR entry. Room air; no home BiPAP anticipated. Tobacco use disorder Nicotine patch 14 mg daily with lozenges PRN. Price Changer cessation. Renal function Cr 1.0, BUN 19, eGFR 60; monitor daily. Avoid nephrotoxins. Dispo Likely discharge 24 48 h if stable post-PCI and access site clean. SNF precert pending. Needs cardiology and HF follow-up within 1 2 weeks. Level of Care Indication SD monitor (other: specify in note) DVT Prophylaxis Full anticoagulation Maintenance IVF Indication NA / No maintenance IVF Indwelling Urinary Catheter Indication NA No indwelling catheter Anticipated Timeline of Discharge Medically Appropriate (Placement) Anticipated DC Disposition SNF Time Spent Greater than 35 minutes were spent priu-ds-rabs with the patient +/- family during this encounter and >50% was spent on counseling and coordination of care. Digitally Signed by PAPI BAXTER MD on 06/24/2025 08:54 PM [facility] [id number] Note Date of Service 06/23/25 Chief Complaint NSTEMI, new onset HFrEF Subjective 70-year-old woman with CAD (prior PCI), suspected prior Takotsubo, COPD (recent AECOPD now improved), HTN/HLD, tobacco use. Presented 06/16 with hypercapnic/hypoxic RF ? intubated; now extubated and stable on room air. Troponin peaked 1085 on 06/21; TTE 06/16 EF 30 35% with RWMA. Cardiology plans early invasive management with coronary angiography Sunday 06/24. Currently asymptomatic (no chest pain/SOB), euvolemic on exam. Telemetry without significant arrhythmia today. Today: Patient's , son and granddaughter were present at bedside this morning. Patient resting wellin bed. Discussed the cardiac findings thus far and the planned workup/disposition. Answered any and all questions. Objective Vitals and Measurements T: 36.7 C (Oral) TMIN: 36.7 C (Oral) TMAX: 36.8 C (Oral) HR: 61 RR: 16 BP: 178/68 SpO2: 94% Intake and Output Last 24 hours Intake Medication 0.50 Oral Intake 710.00 Output Stool Count 0.00 Urine Count 9.00 Total Summary Total Intake 710.50 Total Output 0.00 Fluid Balance 710.50 Physical Exam General Appearance: Appears to be stable and in no acute distress. Head: Atraumatic and normocephalic. EENT: EOMI, PERRLA, no oropharyngeal erythema, no tonsillar exudates, no conjunctival injection, sclera anicteric. Neck: No thyromegaly, no cervical lymphadenopathy, trachea midline. Cardiac: S1 and S2 normal. RRR. No murmurs, rubs, or gallops. No JVD. No hepatojugular reflex. Lungs: Slightly diminished bilaterally. No increased work for breathing. No wheezes, rhonchi, or rales. Abdomen: Soft, nontender, nondistended. Normoactive bowel sounds. No rebound or guarding. Musculoskeletal: Full range of motion upper and lower extremities. Extremities: No lower extremity pitting edema. 2+ radial and pedal pulses bilaterally. Neurological: No focal neurological deficits. Skin: No abrasions, scars, or hematomas on visible skin. Diffuse leathery appearing skin. Psychiatric: Alert and oriented, well groomed, euthymic, cooperative. Weight Dosing Weight: 51.5 kg (06/16/25) Medications Medications (15) Active Scheduled: (10) albuterol - ipratropium 2.5 mg-0.5 mg/3 mL Inhal Smiley UD 3 mL, Inhalation, QIDRT aspirin 81 mg Chewable 81 mg 1 tab(s), Oral, qDayM budesonide 0.5 mg/2 mL Susp UD 0.5 mg 2 mL, Inhalation, BIDRT carvedilol 6.25 mg tablet 6.25 mg 1 tab(s), Oral, BIDM ezetimibe 10 mg tablet 10 mg 1 tab(s), Oral, qDay furosemide 40 mg tablet 40 mg 1 tab(s), Oral, qDay losartan 100 mg tablet 100 mg 1 tab(s), Oral, qDay pantoprazole 40 mg EC tablet 40 mg 1 tab(s), Oral, qDayAC predniSONE 20 mg tablet 20 mg 1 tab(s), Oral, qDayM rosuvastatin 20 mg tablet 40 mg 2 tab(s), Oral, Daily Continuous: (1) heparin 25,000 unit(s) [12 unit(s)/kg/hr] + Dextrose 5% Premix Diluent 250 mL 250 mL, Intravenous, 6.18 mL/hr PRN: (4) albuterol - ipratropium 2.5 mg-0.5 mg/3 mL Inhal Smiley UD 3 mL, Inhalation, q2hRT dextrose 50% Solution Disp syringe 50 mL 25 gram(s) 50 mL, IV Push, AsDirected heparin 5,000 units/mL (1 mL) vial 3,090 unit(s) 0.62 mL, IV Push, q6h hydralazine 20 mg/mL (1mL) vial 10 mg 0.5 mL, IV Push, q2h Lab Results 06/23 06:11 WBC: 11.8 H Hgb: 11.4 L Hct: 34.8 Platelet: 324 Neutrophil %: 58.0 Glucose Level: 90 Sodium Level: 138 Potassium Level: 4.5 BUN: 25.0 H Creatinine Lvl (s): 1.02 06/22 02:56 WBC: 7.5 Hgb: 11.5 L Hct: 34.9 Platelet: 316 Neutrophil %: 66.4 Glucose Level: 108 Sodium Level: 139 Potassium Level: 3.6 BUN: 29.0 H Creatinine Lvl (s): 0.96 Imaging Results and Diagnostics XR Chest 1 View Result Date: June 19, 2025 Verified By: BELLO AGUIRRE DO CLINICAL STATEMENT: IMPRESSION: No acute radiographic findings. Emphysema XR Chest 1 View Result Date: June 18, 2025 Verified By: GENARO NO MD CLINICAL STATEMENT: IMPRESSION: 1. Chronic obstructive pulmonary disease.2. No acute cardiopulmonary process. XR Chest 1 View Result Date: June 17, 2025 Verified By: GENARO NO MD CLINICAL STATEMENT: IMPRESSION: 1. Chronic obstructive pulmonary disease.2. No acute cardiopulmonary process. XR Chest 1 View Result Date: June 16, 2025 Verified By: ARANZA REDDY MD CLINICAL STATEMENT: IMPRESSION: 1. Endotracheal tube is visualized approximately 2.6 cm from the level of thecarina.2. Nasogastric tube is seen coursing past the level the diaphragm with sidehole at the level of the gastroesophageal junction and tip within theproximal gastric fundus, further advancement is necessary. EKG No qualifying data available. Assessment/Plan Orders: NPO after Midnight, 06/22/25 23:58:00 EDT, Constant Order, For [facility] on Monday (06/23/25) NSTEMI (peak hs-troponin 1085) New HFrEF (EF 30 35% with RWMA) Hypertension COPD (recent AECOPD improved) Prior transaminitis Tobacco use disorder Recent prerenal azotemia (improving) 1 NSTEMI with LV dysfunction (EF 30 35%), RWMA DANICA 110 (intermediate). Early invasive strategy planned for Monday (06/24). Continue aspirin 81 mg daily + HepGTT. Telemetry; repeat ECG for symptoms; maintain K >4.0, Mg =2.0 (today K 4.5, Mg 2.3). 2 HFrEF (EF 30 35%) likely ischemic, new recognition On carvedilol 6.25 mg BID; HR today 56 67. Carvedilol is non-selective with a- blockade (not cardioselective). Given recent AECOPD and resting HR 56, consider either reduce carvedilol to 3.125 mg BID with hold parameters (HR <55 or SBP <100) or switch to metoprolol succinate 12.5 25 mg daily if bronchospasm recurs; uptitrate as tolerated. Losartan 100 mg daily. After cath and once renal indices/BP stable, plan transition back to sacubitril/valsartan (no BETHANIE washout needed; from ARB to ARNI [place]). If K =4.8 and eGFR =30 (eGFR ~59 today), start spironolactone 12.5 25 mg daily prior to discharge; check BMP 2 3 days after initiation and at 1 week. Start dapagliflozin 10 mg daily or empagliflozin 10 mg daily before discharge if hemodynamically stable; treatment counselor on sick-day rules and euglycemic DKA risk (rare). Exam euvolemic; I/O documentation may be incomplete. Continue lowest effective dose; hold morning furosemide on cath day if euvolemic to reduce CA-SANTO risk. 3 Hypertension Continue losartan 100 mg daily. Beta-cherelle adjustments per #2. SBP difficult to control; added amlodipine 5 mg daily on 06/23. 4 Lipids / transaminitis during ACS therapy MAR shows rosuvastatin 40 mg daily + ezetimibe 10 mg. LFTs not resulted today; prior AST/ALT rangedfrom modest elevation to >3 ULN earlier this admission. Ordered hepatic panel. If AST/ALT =3 ULN and down-trending, continue rosuvastatin 40 mg nightly; recheck LFTs in 1 2 weeks. If >3 ULN or rising, hold statin (continue ezetimibe) and reassess after 48 72 h. 5 COPD (improved; no current NIV need) Continue scheduled ipratropium/albuterol QID and budesonide neb BID while inpatient. Prednisone course 5 days total. Stop date for 06/26. Maintain SpO2 88 92% if supplemental O2 needed (currently room air). No home BiPAP indicated given absence of persistent hypercapnia/hypoxemia; reassess with outpatient ABG/VBG in 2 4 weeks only if clinical concern. 6 Renal function / CA-SANTO prevention Creatinine 1.02, BUN 25 (BUN/Cr 24.5). Avoid nephrotoxins. Pre-cath: ensure euvolemia; consider isotonic crystalloid at low rate per interventional protocol if judged at risk, balanced against HF status. Hold morning diuretic if euvolemic. 7 Tobacco use disorder Continue nicotine patch 14 mg daily with 2 mg lozenges PRN; reinforce quit plan; offer quitline referral prior to discharge. 8 Disposition and procedure readiness NPO after midnight before cath; morning labs day of procedure: CBC, BMP, Mg, INR if requested. Ensure most recent anti-Xa/aPTT within target prior to transport; laborer pipelines will manage periprocedural anticoagulation dosing. PT recommends SNF; precert in progress. Discharge timing contingent on cath findings and hemodynamics. Level of Care Indication SD monitor (other: specify in note) DVT Prophylaxis Full anticoagulation Maintenance IVF Indication NA / No maintenance IVF Indwelling Urinary Catheter Indication NA No indwelling catheter Anticipated Timeline of Discharge Medically Appropriate (Placement) Anticipated DC Disposition SNF Time Spent Greater than 35 minutes were spent [id number] with the patient +/- family during this encounter and >50% was spent on counseling and coordination of care. Digitally Signed by PAPI BAXTER MD on 06/23/2025 08:03 PM [facility] [id number] Note Date of Service 06/22/25 Chief Complaint NSTEMI, new onset HFrEF Subjective 70-year-old woman with CAD (PCI to RCA in ; prior stents), cardiomyopathy (prior Takotsubo suspected), COPD, HTN, HLD, bipolar, tobacco use, GERD, anxiety/depression; presented with VELAZQUEZ, cough/wheeze, acute hypercapnic/hypoxic respiratory failure due to AECOPD. 06/16: Intubated at 04:30 (7.5 ETT); ventilated, started bronchodilators and systemic steroids. Initial data: VBG pH 7.02 7.08, PCO2 101 109; CXR hyperinflation; lactate 3.9; D-dimer 5358; NT-proBNP 4094; Cr 1.55; transaminitis noted. 06/17 06/19: Gradual improvement; sedation weaned; extubated and transitioned to intermittent BiPAP; passed swallow 06/19. Sputum culture negative. Prerenal- leaning azotemia with negative fluid balance;electrolytes repleted as needed. Cardiology consulted for type II block and rising troponin; telemetry/ECG with irregular rhythm. Troponin trajectory: peak 1085 (06/21). Treated as NSTEMI; on aspirin plus therapeutic unfractionated heparin infusion. Transthoracic echo 06/16: EF 30 35% with mild diffuse hypokinesis and severe hypokinesis of mid-apical anteroseptal/anterior/inferoseptal/apical segments; concentric LVH; mild MR; mildly reduced RV function; estimated RA pressure 8 mmHg. Prior coronary angiography 08/2023: moderate multivessel CAD (LAD mid 50%, distal 70%; LCx mid 60%;OM1 proximal 99%; RCA proximal 50% in-stent restenosis); prior EF ~50% with hypokinesis. Medications/interventions: aspirin + UFH drip; guideline-directed HF therapy being refined (beta-cherelle selection/titration, ARB in place; plan to optimize GDMT); steroids/bronchodilators for COPD (now improved). Disposition and procedure plan: early invasive strategy with coronary angiography planned Monday/Monday; PT recommends SNF, insurance precertification pending. Tobacco cessation counseling provided. Today: Seen this morning; resting comfortably in bed. Denies chest pain, dyspnea, abdominal pain, constipation, dysuria; lying flat without difficulty. Reviewed plan for coronary angiography tomorrow; post-procedure management and discharge timing will depend on findings if non-significant, anticipate discharge soon after. Working on refining GDMT prior to discharge. Breathing comfortably on room air. Chart notes suggested home BiPAP; based on thin habitus, reassuring prior ABGs (no hypercapnia/hypoxemia), and stable nocturnal oximetry >92%, do not anticipate a home BiPAP requirement. Objective Vitals and Measurements T: 36.4 C (Oral) TMIN: 36.3 C (Oral) TMAX: 36.8 C (Oral) HR: 56 RR: 18 BP: 155/68 SpO2: 96% Intake and Output Last 24 hours Intake Medication 0.62 Oral Intake 1560.00 Output Urine Voided 350.00 Stool Count 0.00 Urine Count 7.00 Total Summary Total Intake 1560.62 Total Output 350.00 Fluid Balance 1210.62 Physical Exam General Appearance: Appears to be stable and in no acute distress. Head: Atraumatic and normocephalic. EENT: EOMI, PERRLA, no oropharyngeal erythema, no tonsillar exudates, no conjunctival injection, sclera anicteric. Neck: No thyromegaly, no cervical lymphadenopathy, trachea midline. Cardiac: S1 and S2 normal. RRR. No murmurs, rubs, or gallops. No JVD. No hepatojugular reflex. Lungs: Slightly diminished bilaterally. No increased work for breathing. No wheezes, rhonchi, or rales. Abdomen: Soft, nontender, nondistended. Normoactive bowel sounds. No rebound or guarding. Musculoskeletal: Full range of motion upper and lower extremities. Extremities: No lower extremity pitting edema. 2+ radial and pedal pulses bilaterally. Neurological: No focal neurological deficits. Skin: No abrasions, scars, or hematomas on visible skin. Diffuse leathery appearing skin. Psychiatric: Alert and oriented, well groomed, euthymic, cooperative. Weight Dosing Weight: 51.5 kg (06/16/25) Medications Medications (16) Active Scheduled: (11) albuterol - ipratropium 2.5 mg-0.5 mg/3 mL Inhal Smiley UD 3 mL, Inhalation, QIDRT aspirin 81 mg Chewable 81 mg 1 tab(s), Oral, qDayM budesonide 0.5 mg/2 mL Susp UD 0.5 mg 2 mL, Inhalation, BIDRT carvedilol 6.25 mg tablet 6.25 mg 1 tab(s), Oral, BIDM ezetimibe 10 mg tablet 10 mg 1 tab(s), Oral, qDay furosemide 40 mg tablet 40 mg 1 tab(s), Oral, qDay losartan 100 mg tablet 100 mg 1 tab(s), Oral, qDay pantoprazole 40 mg EC tablet 40 mg 1 tab(s), Oral, qDayAC predniSONE 20 mg tablet 20 mg 1 tab(s), Oral, qDayM predniSONE 20 mg tablet 40 mg 2 tab(s), Oral, qDayM rosuvastatin 20 mg tablet 40 mg 2 tab(s), Oral, Daily Continuous: (1) heparin 25,000 unit(s) [12 unit(s)/kg/hr] + Dextrose 5% Premix Diluent 250 mL 250 mL, Intravenous, 6.18 mL/hr PRN: (4) albuterol - ipratropium 2.5 mg-0.5 mg/3 mL Inhal Smiley UD 3 mL, Inhalation, q2hRT dextrose 50% Solution Disp syringe 50 mL 25 gram(s) 50 mL, IV Push, AsDirected heparin 5,000 units/mL (1 mL) vial 3,090 unit(s) 0.62 mL, IV Push, q6h hydralazine 20 mg/mL (1mL) vial 10 mg 0.5 mL, IV Push, q2h Lab Results 06/22 02:56 WBC: 7.5 Hgb: 11.5 L Hct: 34.9 Platelet: 316 Neutrophil %: 66.4 Glucose Level: 108 Sodium Level: 139 Potassium Level: 3.6 BUN: 29.0 H Creatinine Lvl (s): 0.96 06/21 06:50 WBC: 9.0 Hgb: 11.8 L Hct: 35.4 Platelet: 329 Neutrophil %: 56.7 Glucose Level: 91 Sodium Level: 140 Potassium Level: 3.6 BUN: 24.0 H Creatinine Lvl (s): 0.86 Imaging Results and Diagnostics XR Chest 1 View Result Date: June 19, 2025 Verified By: BELLO AGUIRRE DO CLINICAL STATEMENT: IMPRESSION: No acute radiographic findings. Emphysema XR Chest 1 View Result Date: June 18, 2025 Verified By: GENARO NO MD CLINICAL STATEMENT: IMPRESSION: 1. Chronic obstructive pulmonary disease.2. No acute cardiopulmonary process. XR Chest 1 View Result Date: June 17, 2025 Verified By: GENARO NO MD CLINICAL STATEMENT: IMPRESSION: 1. Chronic obstructive pulmonary disease.2. No acute cardiopulmonary process. XR Chest 1 View Result Date: June 16, 2025 Verified By: ARANZA REDDY MD CLINICAL STATEMENT: IMPRESSION: 1. Endotracheal tube is visualized approximately 2.6 cm from the level of thecarina.2. Nasogastric tube is seen coursing past the level the diaphragm with sidehole at the level of the gastroesophageal junction and tip within theproximal gastric fundus, further advancement is necessary. EKG No qualifying data available. Assessment/Plan Orders: Basic Metabolic Panel(BMP), 06/22/25 5:00:00 EDT, Timed Study (collect at specified time), Blood, q24h, for 14 day(s), Preferred Lab: Other lab service, Stop date 07/05/25 5:00:00 EDT Complete Blood Count(CBC), 06/22/25 5:00:00 EDT, Timed Study (collect at specified time), Blood, q24h, for 14 day(s), Preferred Lab: Other lab service, Stop date 07/05/25 5:00:00 EDT Magnesium Level, 06/22/25 5:00:00 EDT, Timed Study (collect at specified time), Blood, q24h, for 14day(s), Preferred Lab: Other lab service, Stop date 07/05/25 5:00:00 EDT NSTEMI (peak troponin 1085; RWMA on TTE) HFrEF (EF 30 35%) likely ischemic Hypertension (SBP often >160) COPD (recent AECOPD, improved) Prior transaminitis on high-intensity statin Tobacco use disorder Recent prerenal azotemia (improving). 1. NSTEMI with LV dysfunction (EF 30 35%), RWMA present WMA seen on TTE; cardiology consulted Troponin peaked at 1085 Left heart cath planned for Monday (Danica = 110) Continue ASA and heparin drip Patient struggled with DAPT in the past. Noted that she will be able to continue it at this time. Anti-ischemic BP/HR targets: HR 60 80; SBP 110 130 prior to discharge K >4, Mg>2 2. HFrEF (EF 30 35%) likely ischemic, new recognition Metoprolol to Coreg 6.25mg BID. Both are cardioselective with Class I mortality benefit. Do need tomonitor for bronchospasm, given recent respiratory failure/AECOPD. Currently on losartan 50 mg qDay. Once renal indices and BP allow, consider transition back to Entresto. If K <5.0 and eGFR >30, start spironolactone 12.5 25 mg daily; check BMP 2 3 days after startand at 1 week. Consider dapagliflozin 10 mg daily vs. empagliflozin 10 mg daily prior to discharge if hemodynamicsand renal function stable (eGFR typically =25 30). Monitor for volume depletion given recent negative balance. Given recent prerenal pattern, keep furosemide on the lowest dose that maintains euvolemia; daily weights and I/O. 3. Hypertension (goal <130/80 long-term in CAD/HFrEF) Expect it to be managed well once Entresto is restarted Coreg change likely will improve blood pressure values Do need to consider limiting blood pressure management inpatient 4. Lipids in ACS with recent transaminitis Crestor 40 + Zetia 10mg GI protection while on DAPT post-PCI: pantoprazole 5. Pre-cath renal protection (recent prerenal azotemia; now Cr ~1.1) Avoid nephrotoxins; hold morning diuretic if euvolemic. 6. COPD (stable) Maintain scheduled ipratropium/albuterol and ICS neb while inpatient, hold long- acting ICS/LABA/LAMA until closer to discharge if on frequent NIV. Avoid hyperoxia; target SpO2 88 92%. 7. Tobacco use disorder Continue nicotine patch 14 mg daily with short-acting lozenges PRN; arrange quitline referral and discharge Rx. Level of Care Indication SD monitor (CHF exacerbation) DVT Prophylaxis Full anticoagulation Maintenance IVF Indication NA / No maintenance IVF Indwelling Urinary Catheter Indication NA No indwelling catheter Anticipated Timeline of Discharge Medically Appropriate (Procedure) Anticipated DC Disposition SNF Time Spent Greater than 35 minutes were spent [id number] with the patient +/- family during this encounter and >50% was spent on counseling and coordination of care. Digitally Signed by PAPI BAXTER MD on 06/22/2025 04:42 PM [facility] [id number] Note. MICRO - Microbiology PROCEDURE: Blood Culture (bacterial) [*1] SOURCE: Blood BODY SITE: Anticubital, Left COLLECTED DATE/TIME: 06/16/2025 03:22 EDT RECEIVED DATE/TIME: 06/16/2025 15:28 EDT START DATE/TIME: 06/16/2025 15:34 EDT FREE TEXT SOURCE: FINAL REPORTS Final Report [] Verified Date/Time/Personnel: 06/21/2025 15:59 EDT Blood Culture: No Growth at 5 days. PRELIMINARY REPORTS Preliminary Report [] Verified Date/Time/Personnel: 06/16/2025 16:59 EDT Culture has been received in lab and is no growth to date. Routine cultures are held for 5 days. Performing Locations *1: This test was performed at: [address], [address] [place] [address] [id number] Note. MICRO - Microbiology PROCEDURE: Blood Culture (bacterial) [*1] SOURCE: Blood BODY SITE: Anticubital, Left COLLECTED DATE/TIME: 06/16/2025 03:37 EDT RECEIVED DATE/TIME: 06/16/2025 15:34 EDT START DATE/TIME: 06/16/2025 15:34 EDT FREE TEXT SOURCE: FINAL REPORTS Final Report [] Verified Date/Time/Personnel: 06/21/2025 15:59 EDT Blood Culture: No Growth at 5 days. PRELIMINARY REPORTS Preliminary Report [] Verified Date/Time/Personnel: 06/16/2025 16:59 EDT Culture has been received in lab and is no growth to date. Routine cultures are held for 5 days. Performing Locations *1: This test was performed at: [address], [address] [place] [address] [id number] Note. MICRO - Microbiology PROCEDURE: Blood Culture (bacterial) [*1] SOURCE: Blood BODY SITE: COLLECTED DATE/TIME: 06/16/2025 10:25 EDT RECEIVED DATE/TIME: 06/16/2025 10:36 EDT START DATE/TIME: 06/16/2025 10:36 EDT FREE TEXT SOURCE: FINAL REPORTS Final Report [] Verified Date/Time/Personnel: 06/21/2025 10:59 EDT Blood Culture: No Growth at 5 days. PRELIMINARY REPORTS Preliminary Report [] Verified Date/Time/Personnel: 06/16/2025 11:59 EDT Culture has been received in lab and is no growth to date. Routine cultures are held for 5 days. Performing Locations *1: This test was performed at: [address], [address] [place] [address] [id number] Note. MICRO - Microbiology PROCEDURE: Blood Culture (bacterial) [*1] SOURCE: Blood BODY SITE: COLLECTED DATE/TIME: 06/16/2025 10:25 EDT RECEIVED DATE/TIME: 06/16/2025 10:36 EDT START DATE/TIME: 06/16/2025 10:36 EDT FREE TEXT SOURCE: FINAL REPORTS Final Report [] Verified Date/Time/Personnel: 06/21/2025 10:59 EDT Blood Culture: No Growth at 5 days. PRELIMINARY REPORTS Preliminary Report [] Verified Date/Time/Personnel: 06/16/2025 11:59 EDT Culture has been received in lab and is no growth to date. Routine cultures are held for 5 days. Performing Locations *1: This test was performed at: [facility], [address] [place] [address], [facility] , [facility]08-30-2025 Nurse Progress note Patient is alert and oriented 4 but forgetful. She is aware of how to disable bed alarms and was wearing nonslip socks at the time of the incident. The respiratory therapist encountered the patient ambulating unassisted, senior living to the bathroom, tugging on her IV line and pulse oximeter. The respiratory therapist accompanied the patient to the bathroom and notified this nurse. Upon ambulating back to the bed, just before reaching the bedside, the patient s legs became weak. I immediately provided support and safely lowered the patient to the floor. No apparent injury was noted at the time. Family was contacted and updated regarding the incident. The community ambassador was also notified via email. Patient was monitored closely following the event. Digitally Signed by Matthieu Blake RN on 06/21/2025 07:41 AM [facility] [id number] Cardiology Consult note Date of Service 06/16/2025 16:00:17 Reason for Consultation AV block and elevated troponin Referring Physician MICU History of Present Illness 70-year-old female with history of CAD status post PCI to RCA in , cardiomyopathy (thought to be Takotsubo cardiomyopathy), COPD, bipolar, tobacco use, GERD, anxiety, depression, history of suicide attempt in 2010 Presented for dyspnea on exertion with coughing/wheezing. Required intubation/mechanical ventilation. Cardiology consulted for type II block and elevated troponin. Current vitals show systolics 140s, heart rate 70s to 80s on 40% FiO2. Labs show significant leukocytosis 20.2, hemoglobin 12.4, creatinine 1.02, potassium 3.2, magnesium2, AST 203, ALT 133, normal lactate, troponin rising 217, 282, 951, 1085 EKG shows irregular rhythm. Echo 06/16/25: Summary: 1. Left ventricle: The cavity size is normal. Wall thickness is mildly to moderately increased. Concentric Left Ventricular Hypertrophy Systolic function is moderately to severely reduced. The estimated ejection fraction is30-35%. There is mild diffuse hypokinesis. Severe hypokinesis of the mid-apical anteroseptal, anterior, inferoseptal, and apical myocardium. Diastolic dysfunction present but unable to assess severity. 2. Ventricular septum: Thickness is moderately increased. 3. Mitral valve: The annulus is moderately calcified. The leaflets are mildly thickened and mildly calcified. There is mild regurgitation. 4. Right ventricle: Systolic function is mildly reduced. 5. Right atrium: The estimated right atrial pressure is 8 mm Hg. [facility] 08/2023: SUMMARY: 1. Left ventricle: Systolic function is at the lower limits of normal. The estimated ejection fraction is 50%. Hypokinesis. 2. LAD: Mid-vessel lesion: There is a 50% stenosis. Distal vessel lesion: There is a 70% stenosis. 3. Left circumflex: Mid-vessel lesion: There is a 60% stenosis. 4. 1st obtuse marginal: Proximal vessel lesion: There is a 99% stenosis. 5. Right coronary: Proximal vessel lesion: There is a 50% in-stent recurrent stenosis. IMPRESSIONS: The study demonstrates moderate coronary artery disease. Review of Systems Per HPI, Complete ROS otherwise negative Physical Exam Vitals and Measurements T: 37.0 C (Oral) TMIN: 36.7 C (Oral) TMAX: 37.0 C (Oral) HR: 80 (Monitored) RR: 87 BP: 140/79 SpO2:95% HT: 160 cm WT: 51.5 kg BMI: 20.12 Weight Dosing Weight: 51.5 kg (06/16/25) General: Intubated/ventilated/sedated Cardiac: Irregular rhythm Lab Results 06/16 10:25 WBC: 20.2 H Hgb: 12.4 Hct: 38.4 Platelet: 297 Neutrophil %: 95.6 H Glucose Level: 135 H Sodium Level: 139 Potassium Level: 3.2 L BUN: 25.0 H Creatinine Lvl (s): 1.02 Assessment/Plan AHRF/COPD exacerbation Elevated troponin - Type 2 versus 1 New wall motion abnormality MAT Hx of Takotsubo CM Hx of: 70-year-old female with history of CAD status post PCI to RCA in , cardiomyopathy (thought to be Takotsubo cardiomyopathy), COPD, bipolar, tobacco use, GERD, anxiety, depression, history of suicide attempt in 2010 Presented for dyspnea on exertion with coughing/wheezing. Required intubation/mechanical ventilation. Cardiology consulted for type II block and elevated troponin. Current vitals show systolics 140s, heart rate 70s to 80s on 40% FiO2. Labs show significant leukocytosis 20.2, hemoglobin 12.4, creatinine 1.02, potassium 3.2, magnesium2, AST 203, ALT 133, normal lactate, troponin rising 217, 282, 951, 1085 EKG shows irregular rhythm. Recommendations reports patient stopped taking medications a few weeks ago. Aspirin, heparin drip When LFT resolve, start high dose statin Will discuss potential LHC with patient when extubated. Will need to discuss compliance with DAPT potentially Has runs of MAT Problem List/Past Medical History Ongoing CAD in [place] artery Cardiomyopathy Hypertension Mitral valve regurgitation Syncope Procedure/Surgical History Echocardiogram: 09/04/23 Cardiac catheterization: 09/03/[address]: 09/02/23 6MWT - 6 minute walk test: 01/26/21 Pulmonary function test: 01/25/21 Duplex ultrasound of carotid artery: 01/06/17 Doppler ultrasound of renal artery: 12/27/16 Cardiac catheterization Medications Inpatient azithromycin IV budesonide 0.25 mg/2 mL inhalation suspension, 0.25 mg= 2 mL, Inhalation, BIDRT cefTRIAXone, 2 gram(s)= 20 mL, IV Push (INT), Once Dextrose, 25 gram(s)= 50 mL, IV Push, AsDirected, PRN DuoNeb, 3 mL, Inhalation, QIDRT heparin 5000 units/mL injection, 5000 unit(s)= 1 mL, Subcutaneous, q8h Lactated Ringers Infusion 1,000 mL, 1000 mL, Intravenous Peridex 0.12% oral rinse liquid, 15 mL, Swish & Spit, QID potassium chloride bolus, 20 mEq= 100 mL, IV Piggyback, AsDirected, PRN potassium chloride bolus, 20 mEq= 100 mL, IV Piggyback, AsDirected, PRN potassium chloride bolus, 20 mEq= 100 mL, IV Piggyback, AsDirected, PRN potassium chloride bolus, 40 mEq= 100 mL, IV Piggyback, AsDirected, PRN potassium chloride bolus, 20 mEq= 100 mL, IV Piggyback, AsDirected, PRN potassium chloride bolus, 20 mEq= 100 mL, IV Piggyback, AsDirected, PRN Propofol for IV 1,000 mg [10 mcg/kg/min] + IV Premix Diluent titrate 100 mL Protonix IV Push, 40 mg, IV Push, qDayAC Puralube ophth solution, 1 drop(s), Eyes, both, q8h Puralube ophth solution, 1 drop(s), Eyes, both, AsDirected, PRN Puralube ophthalmic ointment, 1 benitez, Eyes, both, q8h Puralube ophthalmic ointment, 1 benitez, Eyes, both, AsDirected, PRN Home albuterol MDI (90 mcg/inh) CFC free inhalation aerosol, 1 puff(s), Inhalation, q4h, PRN, 3 refills aspirin 81 mg oral delayed release tablet, 81 mg= 1 tab(s), Oral, Daily Coreg 6.25 mg oral tablet, 6.25 mg= 1 tab(s), Oral, BID Crestor 40 mg oral tablet, 40 mg= 1 tab(s), Oral, Daily Entresto 97 mg-103 mg oral tablet, 1 tab(s), Oral, BID, 2 refills Klor-Con M20 oral tablet, extended release, 20 mEq= 1 tab(s), Oral, BID, 5 refills Lasix 20 mg oral tablet, 20 mg= 1 tab(s), Oral, BID oxybutynin 10 mg/24 hr oral tablet, extended release, 10 mg= 1 tab(s), Oral, qDay Plavix 75 mg oral tablet, 75 mg= 1 tab(s), Oral, qDay Singulair 10 mg oral tablet, 10 mg= 1 tab(s), Oral, qDay Zetia 10 mg oral tablet, 10 mg= 1 tab(s), Oral, qDay Allergies NKA Social History Alcohol Use: none., 09/28/2023 Nutrition/Health Caffeine intake amount: 3-4 cups per day., 09/28/2023 Substance Abuse Use: Past. Type: Marijuana., 01/22/2024 Tobacco Nicotine Use: 5-9 cigarettes (between 1/4 to 1/2 pack)/day in last 30 days, 10 or more cigarettes (1/2 pack or more)/day in last 30 days., 2024 Family History Cancer: Sister and Brother. Seizure disorder: Mother and Sister. Health Status Family Member(s) Immunizations pneumococcal 13-valent conjugate vaccine: 0.5 unknown unit (11/05/20) pneumococcal 23-valent vaccine(Pneumovax: 0.5 unknown unit (09/23/19) SARS-CoV-2 (COVID-19) mRNA-1273 vaccine: 0.5 unknown unit (10/11/21) Digitally Signed by MELANIE CLEMONS DO on 06/16/2025 04:25 PM [facility] [id number] Note Date of Service 06/20/2025 ICU Day 5 Significant Comorbidities/Current Illness 70-year-old female with history of CAD status post PCI to RCA in , cardiomyopathy (thought to be Takotsubo cardiomyopathy), COPD, bipolar, tobacco use, GERD, anxiety, depression, history of suicide attempt in 2010. Presented to pulmonary hospital with COPD exacerbation. developed hypoxic respiratory failure requiring intubation and mechanical ventilation and COPD transfer for pulmonary and hospital At [facility]. Vitals BP 114/67, MAP 83, HR 110, RR 34, O2 sat 82%. Chest x-ray showed severe hyperinflation, EKG on showing sinus tachycardia. Normal axis. Labs Hb 13.5, WBC 12.1, PLT 365. VBG (3 AM) pH 7.08, CO2 101, O2 33 -repeat VBG at 5 AM pH 7.02, CO2 109, O2 42. Ptt 29.1. INR 1.1 PT 11.8 Blood chemistry NA 136, K4.0, CL 95, CO2 28.5, glucose 266, BUN 27, creat 1.55, EGFR 33 AST 145, ALT P139, Ca 9.0, TP 7.5, AG 17, T. bili 0.7, ALT 104. D- dimer 5358. Lactate 3.9, NT proBNP 4094. Troponin elevation at 217 282. Patient intubated at 0430 hrs. on 2024. With a 7.5endotracheal tube. (Succinylcholine). ET tube placement confirmed by chest x-ray. Diagnoses of acute respiratory failure hypoxemia and acute exacerbation of COPD (emphysematous) and transferred to [facility]. Current vent settings FiO2 40%, tidal volume 400, respiratory 18, PEEP of 5. 24 Hour Summary 1. Seen by cardiology recommended continuing aspirin/heparin drip. Statins when LFTs resolved. Willcontinue to follow and assess for appropriateness of left heart cath. 2. Physical therapy but not able to conduct evaluation due to necessity of as needed BiPAP. 3. No events overnight 4. Prerenal azotemia a bit worse Respiratory status much improved. Coughing and expectorating mucous plugs. Physical Exam Vitals and Measurements T: 36.4 C (Oral) TMIN: 36.0 C (Rectal) TMAX: 36.5 C (Oral) HR: 68 RR: 16 BP: 171/79 SpO2: 99% Weight Dosing Weight: 51.5 kg (06/16/25) GENERAL: Patient comfortably lying on bed, anicteric, acyanotic - on O2 VIA NC. HEAD: Normocephalic, atraumatic ENT: PERRLA, mucous membranes pink and moist, anicteric/acyanotic NECK: supple, no JVD, no mass or thyromegaly. CARDIAC: s1s2,RRR, no murmurs or rubs or gallops RESPIRATORY: Air entry equal bilaterally, no wheeze/crepitation/rhonchi ABDOMEN: soft , Nontender, no organomegaly, bowel sounds heard MUSCULOSKELETAL: full ROM , no gross deformities EXTREMETIES: No Edema or calf tenderness, pulses full and equal in all limbs NEUROLOGICAL: Alert, oriented x 3, grossly no focal neurological deficits SKIN: no rash or ulcers PSYCHIATRIC: mood/affect appropriate, no SI/HI. Oxygenation On BiPAP, 09/27 with FiO2 30% Sedation Precedex off GI Prophlyaxis Protonix DVT Prophlyaxis Heparin by weight. IV Infusions None Nutrition Passed swallow on 06/19 and will continue Lines/Drains Urinary Catheter (indwelling). Intake and Output Last 24 hours Intake Medication 8.25 Administration Information 346.75 Oral Intake 750.00 Output Urinary Catheter Output: 2420.00 Stool Count 0.00 Total Summary Total Intake 1105.00 Total Output 2420.00 Fluid Balance -1315.00 Critical Labs Event Name Event Result Date/Time WBC 6.4 10^Aayush/[facility] 06/20/25 02:11:00 WBC 5.8 10^Aayush/[facility] 06/19/25 02:59:00 WBC 6.9 Jocy^Aayush/[facility] 06/18/25 03:51:00 WBC 9 [facility] 06:47:00 Hgb 11.1 G/dL [facility] 06/20/25 02:11:00 Hgb 11.3 G/dL [facility] 06/19/25 02:59:00 Hgb 11 G/dL [facility] 06/18/25 03:51:00 Hgb 10.9 G/dL [facility] 06/17/25 06:47:00 Hct 33 % [facility] 06/20/25 02:11:00 Hct 33.7 % [facility] 06/19/25 02:59:00 Hct 33 % [facility] 06/18/25 03:51:00 Hct 32.8 % [facility] 06/17/25 06:47:00 Platelet 290 [facility] 02:11:00 Platelet 272 10[facility]25 02:59:00 Platelet 268 10[facility] 06[facility]25 03:51:00 Platelet 240 10^Aayush/[facility] 06/17/25 06:47:00 APTT 67.1 seconds [facility] 06/20/25 01:39:00 APTT 52.6 seconds [facility] 06/19/25 17:01:00 APTT 73.6 seconds [facility] 06/19/25 08:44:00 APTT 65.1 seconds [facility] 06/19/25 02:59:00 APTT 68.1 seconds [facility] 06/18/25 19:45:00 APTT 40.6 seconds [facility] 06/18/25 08:41:00 APTT 51.7 seconds [facility] 06/18/25 03:51:00 APTT 46.8 seconds [facility] 06/17/25 20:40:00 APTT 40.2 seconds [facility] 06/17/25 12:38:00 APTT 54.3 seconds [facility] 06/17/25 06:47:00 Glucose Level 116 mg/dL [facility] 06/20/25 02:11:00 Glucose Level 156 mg/dL [facility] 06/19/25 20:49:00 Glucose Level 139 mg/dL [facility] 06/19/25 02:59:00 Glucose Level 145 mg/dL High 06/18/25 03:51:00 Glucose Level 106 mg/dL 06/17/25 06:47:00 Sodium Level 139 mEq/L 06/20/25 02:11:00 Sodium Level 140 mEq/L 06/19/25 20:49:00 Sodium Level 149 mEq/L High 06/19/25 02:59:00 Sodium Level 143 mEq/L 06/18/25 03:51:00 Sodium Level 139 mEq/L 06/17/25 06:47:00 Potassium Level 3.5 mEq/L 06/20/25 02:11:00 Potassium Level 3.6 mEq/L 06/19/25 20:49:00 Potassium Level 3.7 mEq/L 06/19/25 02:59:00 Potassium Level 3.6 mEq/L 06/18/25 03:51:00 Potassium Level 4 mEq/L 06/17/25 06:47:00 Chloride 98 mEq/L 06/20/25 02:11:00 Chloride 99 mEq/L 06/19/25 20:49:00 Chloride 105 mEq/L 06/19/25 02:59:00 Chloride 105 mEq/L 06/18/25 03:51:00 Chloride 103 mEq/L 06/17/25 06:47:00 CO2 30 mEq/L 06/20/25 02:11:00 CO2 29 mEq/L 06/19/25 20:49:00 CO2 32 mEq/L 06/19/25 02:59:00 CO2 31 mEq/L 06/18/25 03:51:00 CO2 28 mEq/L 06/17/25 06:47:00 BUN 42 mg/dL High 06/20/25 02:11:00 BUN 39 mg/dL High 06/19/25 20:49:00 BUN 32 mg/dL High 06/19/25 02:59:00 BUN 32 mg/dL High 06/18/25 03:51:00 BUN 30 mg/dL High 06/17/25 06:47:00 Creatinine Lvl (s) 1.11 mg/dL 06/20/25 02:11:00 Creatinine Lvl (s) 1.13 mg/dL 06/19/25 20:49:00 Creatinine Lvl (s) 0.87 mg/dL 06/19/25 02:59:00 Creatinine Lvl (s) 1.02 mg/dL 06/18/25 03:51:00 Creatinine Lvl (s) 1.05 mg/dL 06/17/25 06:47:00 Magnesium Lvl 2.5 mg/dL High 06/20/25 02:11:00 Magnesium Lvl 2.5 mg/dL High 06/18/25 03:51:00 Magnesium Lvl 2.1 mg/dL 06/17/25 06:47:00 Calcium Ionized 1.09 mmol/L Low 06/18/25 03:51:00 Blood Gases No qualifying data available. Imaging Results and Diagnostics Chest Xray/CT/MRI/KUB/2-D Echo Infectious Disease Current Infection Site/Type Culture Results Medications Inpatient aspirin, 81 mg= 1 tab(s), Oral, qDayM budesonide 0.25 mg/2 mL inhalation suspension, 0.5 mg= 2 mL, Inhalation, BIDRT Crestor, 40 mg= 2 tab(s), Oral, Daily Dexmedetomidine for IV 400 mcg [0.2 mcg/kg/hr] + sodium chloride 0.9% IV solution (T) 96 mL Dextrose, 25 gram(s)= 50 mL, IV Push, AsDirected, PRN DuoNeb, 3 mL, Inhalation, QIDRT DuoNeb, 3 mL, Inhalation, q2hRT, PRN Heparin for IV 25,000 unit(s) [12 unit(s)/kg/hr] + Dextrose 5% Premix Diluent 250 mL Heparin HBW CARDIAC Bolus 5000 units/mL, 3090 unit(s)= 0.62 mL, 60 unit(s)/kg, IV Push, q6h, PRN hydrALAZINE, 10 mg= 0.5 mL, IV Push, q2h, PRN Lasix, 40 mg= 1 tab(s), Oral, qDay losartan, 50 mg= 1 tab(s), Oral, qDay methylPREDNISolone sodium succinate 40 mg preservative-free injection, 30 mg= 0.75 mL, IV Push, q8h pantoprazole, 40 mg= 1 tab(s), Oral, qDayAC potassium chloride bolus, 20 mEq= 100 mL, IV Piggyback, AsDirected, PRN potassium chloride bolus, 20 mEq= 100 mL, IV Piggyback, AsDirected, PRN potassium chloride bolus, 40 mEq= 100 mL, IV Piggyback, AsDirected, PRN potassium chloride bolus, 20 mEq= 100 mL, IV Piggyback, AsDirected, PRN potassium chloride bolus, 20 mEq= 100 mL, IV Piggyback, AsDirected, PRN Zetia, 10 mg= 1 tab(s), Oral, qDay Home albuterol MDI (90 mcg/inh) CFC free inhalation aerosol, 1 puff(s), Inhalation, q4h, PRN, 3 refills aspirin 81 mg oral delayed release tablet, 81 mg= 1 tab(s), Oral, Daily Coreg 6.25 mg oral tablet, 6.25 mg= 1 tab(s), Oral, BID Crestor 40 mg oral tablet, 40 mg= 1 tab(s), Oral, Daily Entresto 97 mg-103 mg oral tablet, 1 tab(s), Oral, BID, 2 refills Klor-Con M20 oral tablet, extended release, 20 mEq= 1 tab(s), Oral, BID, 5 refills Lasix 20 mg oral tablet, 20 mg= 1 tab(s), Oral, BID oxybutynin 10 mg/24 hr oral tablet, extended release, 10 mg= 1 tab(s), Oral, qDay Plavix 75 mg oral tablet, 75 mg= 1 tab(s), Oral, qDay Singulair 10 mg oral tablet, 10 mg= 1 tab(s), Oral, qDay Zetia 10 mg oral tablet, 10 mg= 1 tab(s), Oral, qDay Assessment/Plan Acute Hypercapnic and Hypoxic Respiratory Failure secondary to Pulmonary Edema NSTEMI on HBW COPD exacerbation resolved Lactic acidemia resolved Elevated NT pro BNP Raised BUN and creatinine baseline unclear - worsening prerenal azotemia. Tobacco use disorder Transaminitis - ? DILI due to AtoRvastatin improved. . Total bili normal. Plan Transfer initiated 1. Continue BIPAP PRN. 2. Cont Lasix orally - optimize blood pressure. 3. Continue losartan - dose increased by Cardiology 4 . Added Metoprolol 12.5 mg - administered at different times. 4. Encourage oral intake. 5. Oral steroids (Convert IV to oral). 6. Sputum culture is negative 7. Await PT consult recs. 9. Cardiology will follow-up regarding potential need for repeat heart catheterization CODE STATUS full code DVT prophylaxis with heparin SQ Diet clear fluid Patient improved overall. Will add low-dose metoprolol Critical care medicine will sign off on transfer I was present for, and personally supervised, the [place] components of the patient's evaluation and management by the resident housestaff today. I have examined the patient and reviewed diagnostic data.I reviewed the note of the resident. It documents the interval history obtained, examination performed, and diagnostic testing results compiled by them. I have made changes in the sections as needed. Sammie Zaragoza M.D., [facility] High degree of medical complexity noted in this patient with review of external notes and results of tests, ordering of new tests, and an independent review of the patient. I reviewed tests ordered by other physicians and reviewed my assessment with other health care providers. Code Status Code Status - Ordered -- 06/16/25 10:01:00 EDT, Full Code, Constant Order Digitally Signed by VANDANA DOS SANTOS MD on 06/20/2025 12:04 PM Digitally Signed by SAMMIE ZARAGOZA MD on 06/20/2025 12:58 PM [facility] [id number] Note* Exam Date Time Procedure Performing Provider Status 06/19/25 6:40 PM Electrocardiogram - EKG - CV JAIRO LIMA MD; Auth (Verified) ECG Final Report Wandering atrial pacemaker Left ventricular hypertrophy Prolonged QT interval Electronic Signature: JAIRO PÉREZ MD 06/20/2025 16:26:25 [facility] [id number] Note Date of Service 06-19-2025 ICU Day 4 Significant Comorbidities/Current Illness 70-year-old female with history of CAD status post PCI to RCA in , cardiomyopathy (thought to be Takotsubo cardiomyopathy), COPD, bipolar, tobacco use, GERD, anxiety, depression, history of suicide attempt in 2010. Presented to pulmonary hospital with COPD exacerbation. developed hypoxic respiratory failure requiring intubation and mechanical ventilation and COPD transfer for pulmonary and hospital At [facility]. Vitals BP 114/67, MAP 83, HR 110, RR 34, O2 sat 82%. Chest x-ray showed severe hyperinflation, EKG on showing sinus tachycardia. Normal axis. Labs Hb 13.5, WBC 12.1, PLT 365. VBG (3 AM) pH 7.08, CO2 101, O2 33 -repeat VBG at 5 AM pH 7.02, CO2 109, O2 42. Ptt 29.1. INR 1.1 PT 11.8 Blood chemistry NA 136, K4.0, CL 95, CO2 28.5, glucose 266, BUN 27, creat 1.55, EGFR 33 AST 145, ALT P139, Ca 9.0, TP 7.5, AG 17, T. bili 0.7, ALT 104. D- dimer 5358. Lactate 3.9, NT proBNP 4094. Troponin elevation at 217 282. Patient intubated at 0430 hrs. on 2024. With a 7.5endotracheal tube. (Succinylcholine). ET tube placement confirmed by chest x-ray. Diagnoses of acute respiratory failure hypoxemia and acute exacerbation of COPD (emphysematous) and transferred to [facility]. Current vent settings FiO2 40%, tidal volume 400, respiratory 18, PEEP of 5. 24 Hour Summary 1. She is doing well on BiPAP FiO2 30 and pressure 12/6. Saturating well. Weaned to nasal cannula 2. Precedex is reduced to 0.4 mics. Plan to wean further and discontinue that by this afternoon 3. is present at the bedside, he does that she is more awake and was talking to him. 4. No calls on her overnight, chest x-ray improving congestion Physical Exam Vitals and Measurements T: 36.4 C (Oral) TMIN: 35.7 C (Axillary) TMAX: 37.0 C (Oral) HR: 55 RR: 20 BP: 132/66 SpO2: 100% Weight Dosing Weight: 51.5 kg (06/16/25) Patient comfortably lying in bed with BiPAP mask on. Awake, alert and oriented in time, place and person. HEAD: Normocephalic, atraumatic, anicteric, acyanotic NECK: supple, no JVD, no mass or thyromegaly. CARDIAC: S1S2,RRR, no murmurs or rubs or gallops RESPIRATORY: Air entry equal bilaterally, no wheeze/rhonchi ABDOMEN: soft , Nontender, no organomegaly, bowel sounds heard; Madrigal's in position draining clear urine MUSCULOSKELETAL: full ROM , no gross deformities EXTREMETIES: no edema or calf tenderness, pulses full and equal in all limbs NEUROLOGICAL: intubated/sedated SKIN: no rash or ulcers Oxygenation On BiPAP, 09/27 with FiO2 30% Sedation Precedex GI Prophlyaxis Protonix DVT Prophlyaxis Heparin IV Infusions None Nutrition Passed swallow test this am, will start clear fluids and escalate to regular diet Lines/Drains 2 peripheral lines Madrigal's cath Intake and Output Last 24 hours Intake IV Piggyback Intake 81.00 Medication 2.25 Oral Intake 0.00 Administration Information 293.99 Output Urinary Catheter Output: 2325.00 Stool Count 0.00 Total Summary Total Intake 377.24 Total Output 2325.00 Fluid Balance -1947.76 Critical Labs Event Name Event Result Date/Time WBC 5.8 10^3/mcL 06/19/25 02:59:00 WBC 6.9 10^3/mcL 06/18/25 03:51:00 WBC 9 10^3/mcL 06/17/25 06:47:00 WBC 12.1 10^3/mcL [facility] 06/16/25 17:09:00 Hgb 11.3 G/dL [facility] 06/19/25 02:59:00 Hgb 11 G/dL Low 06/18/25 03:51:00 Hgb 10.9 G/dL [facility] 06/17/25 06:47:00 Hgb 11.3 G/dL Low 06/16/25 17:09:00 Hct 33.7 % [facility] 06/19/25 02:59:00 Hct 33 % Low 06/18/25 03:51:00 Hct 32.8 % [facility] 06/17/25 06:47:00 Hct 34.3 % 06/16/25 17:09:00 Platelet 272 10^3/mcL 06/19/25 02:59:00 Platelet 268 10^3/mcL 06/18/25 03:51:00 Platelet 240 10^3/mcL 06/17/25 06:47:00 Platelet 263 10^3/mcL 06/16/25 17:09:00 APTT 73.6 seconds [facility] 06/19/25 08:44:00 APTT 65.1 seconds [facility] 06/19/25 02:59:00 APTT 68.1 seconds [facility] 06/18/25 19:45:00 APTT 40.6 seconds [facility] 06/18/25 08:41:00 APTT 51.7 seconds [facility] 06/18/25 03:51:00 APTT 46.8 seconds High 06/17/25 20:40:00 APTT 40.2 seconds High 06/17/25 12:38:00 APTT 54.3 seconds High 06/17/25 06:47:00 APTT 71.7 seconds High 06/16/25 23:54:00 APTT 33.8 seconds 06/16/25 17:09:00 Protime 14.4 seconds 06/16/25 17:09:00 PT International Ratio 1.2 ratio 06/16/25 17:09:00 Glucose Level 139 mg/dL High 06/19/25 02:59:00 Glucose Level 145 mg/dL High 06/18/25 03:51:00 Glucose Level 106 mg/dL 06/17/25 06:47:00 Sodium Level 149 mEq/L [facility] 06/19/25 02:59:00 Sodium Level 143 mEq/L 06/18/25 03:51:00 Sodium Level 139 mEq/L 06/17/25 06:47:00 Potassium Level 3.7 mEq/L 06/19/25 02:59:00 Potassium Level 3.6 mEq/L 06/18/25 03:51:00 Potassium Level 4 mEq/L 06/17/25 06:47:00 Chloride 105 mEq/L 06/19/25 02:59:00 Chloride 105 mEq/L 06/18/25 03:51:00 Chloride 103 mEq/L 06/17/25 06:47:00 CO2 32 mEq/L 06/19/25 02:59:00 CO2 31 mEq/L 06/18/25 03:51:00 CO2 28 mEq/L 06/17/25 06:47:00 BUN 32 mg/dL [facility] 06/19/25 02:59:00 BUN 32 mg/dL [facility] 06/18/25 03:51:00 BUN 30 mg/dL [facility] 06/17/25 06:47:00 Creatinine Lvl (s) 0.87 mg/dL 06/19/25 02:59:00 Creatinine Lvl (s) 1.02 mg/dL 06/18/25 03:51:00 Creatinine Lvl (s) 1.05 mg/dL 06/17/25 06:47:00 Magnesium Lvl 2.5 mg/dL High 06/18/25 03:51:00 Magnesium Lvl 2.1 mg/dL 06/17/25 06:47:00 Calcium Ionized 1.09 mmol/L Low 06/18/25 03:51:00 Lactic Acid Lvl 2 mmol/L 06/16/25 18:48:00 Lactic Acid Lvl 2.1 mmol/L 06/16/25 15:32:00 Lactic Acid Lvl 1.5 mmol/L 06/16/25 12:34:00 Blood Gases No qualifying data available. Imaging Results and Diagnostics Chest Xray/CT/MRI/KUB/2-D Echo Infectious Disease Current Infection Site/Type Culture Results Medications Inpatient aspirin, 81 mg= 1 tab(s), Oral, qDayM budesonide 0.25 mg/2 mL inhalation suspension, 0.5 mg= 2 mL, Inhalation, BIDRT Crestor, 40 mg= 2 tab(s), Oral, Daily Dexmedetomidine for IV 400 mcg [0.2 mcg/kg/hr] + sodium chloride 0.9% IV solution (T) 96 mL Dextrose, 25 gram(s)= 50 mL, IV Push, AsDirected, PRN DuoNeb, 3 mL, Inhalation, QIDRT Heparin for IV 25,000 unit(s) [12 unit(s)/kg/hr] + Dextrose 5% Premix Diluent 250 mL Heparin HBW CARDIAC Bolus 5000 units/mL, 3090 unit(s)= 0.62 mL, 60 unit(s)/kg, IV Push, q6h, PRN hydrALAZINE, 10 mg= 0.5 mL, IV Push, q2h, PRN Lasix, 40 mg= 1 tab(s), Oral, qDay losartan, 50 mg= 1 tab(s), Oral, qDay methylPREDNISolone sodium succinate 40 mg preservative-free injection, 30 mg= 0.75 mL, IV Push, q8h pantoprazole, 40 mg= 1 tab(s), Oral, qDayAC potassium chloride bolus, 20 mEq= 100 mL, IV Piggyback, AsDirected, PRN potassium chloride bolus, 20 mEq= 100 mL, IV Piggyback, AsDirected, PRN potassium chloride bolus, 40 mEq= 100 mL, IV Piggyback, AsDirected, PRN potassium chloride bolus, 20 mEq= 100 mL, IV Piggyback, AsDirected, PRN potassium chloride bolus, 20 mEq= 100 mL, IV Piggyback, AsDirected, PRN Zetia, 10 mg= 1 tab(s), Oral, qDay Home albuterol MDI (90 mcg/inh) CFC free inhalation aerosol, 1 puff(s), Inhalation, q4h, PRN, 3 refills aspirin 81 mg oral delayed release tablet, 81 mg= 1 tab(s), Oral, Daily Coreg 6.25 mg oral tablet, 6.25 mg= 1 tab(s), Oral, BID Crestor 40 mg oral tablet, 40 mg= 1 tab(s), Oral, Daily Entresto 97 mg-103 mg oral tablet, 1 tab(s), Oral, BID, 2 refills Klor-Con M20 oral tablet, extended release, 20 mEq= 1 tab(s), Oral, BID, 5 refills Lasix 20 mg oral tablet, 20 mg= 1 tab(s), Oral, BID oxybutynin 10 mg/24 hr oral tablet, extended release, 10 mg= 1 tab(s), Oral, qDay Plavix 75 mg oral tablet, 75 mg= 1 tab(s), Oral, qDay Singulair 10 mg oral tablet, 10 mg= 1 tab(s), Oral, qDay Zetia 10 mg oral tablet, 10 mg= 1 tab(s), Oral, qDay Assessment/Plan Acute Hypercapnic and Hypoxic Respiratory Failure secondary to Pulmonary Edema COPD exacerbation resolved Lactic acidemia resolving Elevated NT pro BNP Troponemia (uptrending) Raised BUN and creatinine baseline unclear. Tobacco use disorder Transaminitis with raised ALP/raised AST/raised ALT -possible DILI from Atorvastatin. Total bili normal. Plan 1. Discontinue Precedex, change BiPAP to as needed during the day and on at night start on high flow nasal cannula. 2. Lasix 40 mg p.o. given. Schedule Lasix 20 mg once daily. 3. Continue losartan 50 mg once daily 4. She passed a swallow test, start with clear fluid, if tolerating escalate to regular diet. 5. Bronchodilator treatments as well as steroids 6. Sputum culture is negative 7. Consult PT 8. Will reevaluate on second rounds, if doing well she can be transferred to the [facility] today. 9. Cardiology will follow-up regarding potential need for repeat heart catheterization CODE STATUS full code DVT prophylaxis with heparin SQ Diet clear fluid I was present for, and personally supervised, the [place] components of the patient's evaluation and management by the resident housestaff today. I have examined the patient and reviewed diagnostic data.I reviewed the note of the resident. It documents the interval history obtained, examination performed, and diagnostic testing results compiled by them. I have made changes in the sections as needed. Sammie Zaragoza M.D., [facility] High degree of medical complexity noted in this patient with review of external notes and results of tests, ordering of new tests, and an independent review of the patient. I reviewed tests ordered by other physicians and reviewed my assessment with other health care providers. Code Status Code Status - Ordered -- 06/16/25 10:01:00 EDT, Full Code, Constant Order Digitally Signed by ANTONIETA NIELSON MD on 06/19/2025 12:29 PM Digitally Signed by SAMMIE ZARAGOZA MD on 06/19/2025 01:04 PM [facility] [id number] Note* Exam Date Time Procedure Performing Provider Status 06/19/25 7:59 AM XR Chest 1 View BELLO AGUIRRE DO; [facility] (Verified) [id number] ORIGINAL EXAMINATION: ONE XRAY VIEW OF THE CHEST 06/19/2025 7:59 am COMPARISON: Chest x-ray 06/18/2025, 06/17/2025. HISTORY: ORDERING SYSTEM PROVIDED HISTORY: Reason for Exam: Pulmonary edema follow up FINDINGS: Interval removal of endotracheal and enteric tubes. Cardiomediastinal silhouette is stable. Atherosclerotic calcifications are noted within the aorta. The lungs are hyperinflated with chronic coarsening of the interstitial markings consistent with emphysema. No focal consolidation, large pleural effusion or pneumothorax. Osseous structures appear intact. IMPRESSION: No acute radiographic findings. Emphysema Interpreted by: Bello Aguirre Preliminary Report By: Bello Aguirre Electronically signed By Bello Aguirre Dictated Date: 06/19/2025 8:05:30 AM Prelim Date: 06/19/2025 8:06:42 AM Sign Date: 06/19/2025 8:06:42 AM Ordering Provider: ADRIANA WEAVER [facility] [id number] Note* Exam Date Time Procedure Performing Provider Status 06/18/25 11:16 AM Electrocardiogram - EKG - CV JAIRO MARTINS MD; Auth (Verified) ECG Final Report Sinus rhythm Multiple premature complexes, vent & supraven Anterior infarct, age indeterminate Lateral leads are also involved Electronic Signature: AJIRO PÉREZ MD 06/19/2025 16:18:13 [facility] [id number] Note. MICRO - Microbiology PROCEDURE: Culture Respiratory with Gram Stain [^1 *1] SOURCE: Tracheal Aspirate BODY SITE: COLLECTED DATE/TIME: 06/16/2025 16:04 EDT RECEIVED DATE/TIME: 06/16/2025 16:39 EDT START DATE/TIME: 06/16/2025 16:39 EDT FREE TEXT SOURCE: FINAL REPORTS Final Report [] Verified Date/Time/Personnel: 06/18/2025 07:18 EDT Normal respiratory renu present at 48 hours Sensitivity testing not indicated PRELIMINARY REPORTS Preliminary Report [] Verified Date/Time/Personnel: 06/17/2025 10:54 EDT Negative for respiratory pathogens at 24 hours. STAINS GS [] Verified Date/Time/Personnel: 06/16/2025 18:51 EDT Rare Gram Positive Cocci Interpretive Data ^1: Culture Respiratory with Gram Stain Requests for Mycoplasma, Legionella, Fungi, Mycobacteria, Chlamydia, and Viruses require ordering of those individual tests. Performing Locations *1: This test was performed at: [facility], [address] [place] [address], [facility] , [facility]08-27-2025 Note* Exam Date Time Procedure Performing Provider Status 06/18/25 6:44 AM XR Chest 1 View GENARO NO MD; Auth (Verified) [id number] ORIGINAL EXAMINATION: ONE XRAY VIEW OF THE CHEST 06/18/2025 6:44 am COMPARISON: Chest x-ray on 06/17/2025 HISTORY: ORDERING SYSTEM PROVIDED HISTORY: Reason for Exam: ventilator FINDINGS: The endotracheal tube tip is 2.5 cm above the steve. Enteric tube passes down the esophagus into the stomach. The heart size is normal. The lungs are hyperexpanded. Chronic coarse interstitial markings are unchanged. There is no acute lung infiltrate. No pleural fluid or pneumothorax is present. IMPRESSION: 1. Chronic obstructive pulmonary disease. 2. No acute cardiopulmonary process. Interpreted by: Genaro No MD Preliminary Report By: Genaro No MD Electronically signed By Genaro No MD Dictated Date: 06/18/2025 7:11:23 AM Prelim Date: 06/18/2025 7:12:41 AM Sign Date: 06/18/2025 7:12:41 AM Ordering Provider: [facility]08-27-2025 Note Date of Service 06-18-2025 ICU Day 3 Significant Comorbidities/Current Illness 70-year-old female with history of CAD status post PCI to RCA in , cardiomyopathy (thought to be Takotsubo cardiomyopathy), COPD, bipolar, tobacco use, GERD, anxiety, depression, history of suicide attempt in 2010. Presented to [facility] with COPD exacerbation. developed hypoxic respiratory failure requiring intubation and mechanical ventilation and COPD transfer for pulmonary and hospital At [facility]. Vitals BP 114/67, MAP 83, HR 110, RR 34, O2 sat 82%. Chest x-ray showed severe hyperinflation, EKG on showing sinus tachycardia. Normal axis. Labs Hb 13.5, WBC 12.1, PLT 365. VBG (3 AM) pH 7.08, CO2 101, O2 33 -repeat VBG at 5 AM pH 7.02, CO2 109, O2 42. Ptt 29.1. INR 1.1 PT 11.8 Blood chemistry NA 136, K4.0, CL 95, CO2 28.5, glucose 266, BUN 27, creat 1.55, EGFR 33 AST 145, ALT P139, Ca 9.0, TP 7.5, AG 17, T. bili 0.7, ALT 104. D- dimer 5358. Lactate 3.9, NT proBNP 4094. Troponin elevation at 217 282. Patient intubated at 0430 hrs. on 2024. With a 7.5endotracheal tube. (Succinylcholine). ET tube placement confirmed by chest x-ray. Diagnoses of acute respiratory failure hypoxemia and acute exacerbation of COPD (emphysematous) and transferred to [facility]. Current vent settings FiO2 40%, tidal volume 400, respiratory 18, PEEP of 5. 24 Hour Summary 1. There were no overnight calls for the patient. 2. Seen by cardiology yesterday, they recommended to continue on aspirin and heparin, they are planning for left heart cath when the patient will be extubated, and to discuss DAPT. 3. Blood pressure is 146/70 4. Chest x-ray is improving congestion ross. 5. In negative balance of 3. 6. Tolerating spontaneous breathing trial this morning Mentation remains somewhat suboptimal. However respiratory mechanics are improved and chest x-ray shows reduction in pulmonary edema Physical Exam Vitals and Measurements T: 37.3 C (Oral) TMIN: 36.5 C (Oral) TMAX: 37.3 C (Oral) HR: 77 (Monitored) RR: 15 BP: 146/70 SpO2:97% Weight Dosing Weight: 51.5 kg (06/16/25) Intubated with AC: 400/14/30%/5 GENERAL: Patient comfortably lying on bed with ET tube in position. HEAD: Normocephalic, atraumatic, anicteric, acyanotic NECK: supple, no JVD, no mass or thyromegaly. CARDIAC: S1S2,RRR, no murmurs or rubs or gallops RESPIRATORY: Air entry equal bilaterally, no wheeze/rhonchi, bilateral few fine crepitations positive ABDOMEN: soft , Nontender, no organomegaly, bowel sounds heard; Madrigal's in position draining clear urine MUSCULOSKELETAL: full ROM , no gross deformities EXTREMETIES: no edema or calf tenderness, pulses full and equal in all limbs NEUROLOGICAL: intubated/sedated SKIN: no rash or ulcers Oxygenation FiO2 30% O2 Sat 99% Sedation Propofol on hold now GI Prophlyaxis Protonix DVT Prophlyaxis Heparin IV Infusions None Nutrition Tube feeding Lines/Drains ET tube OG tube Madrigal's Cath 2 peripheral lines Intake and Output Last 24 hours Intake Medication 6.25 Tube Feeding Intake 146.00 Administration Information 1103.95 Oral Intake 0.00 Output Urinary Catheter Output: 3130.00 Stool Count 0.00 Total Summary Total Intake 1256.20 Total Output 3130.00 Fluid Balance -1873.80 Critical Labs Event Name Event Result Date/Time WBC 6.9 10^3/mcL 06/18/25 03:51:00 WBC 9 10^3/mcL 06/17/25 06:47:00 WBC 12.1 10^3/mcL High 06/16/25 17:09:00 WBC 20.2 10^3/mcL High 06/16/25 10:25:00 Hgb 11 G/dL Low 06/18/25 03:51:00 Hgb 10.9 G/dL Low 06/17/25 06:47:00 Hgb 11.3 G/dL Low 06/16/25 17:09:00 Hgb 12.4 G/dL 06/16/25 10:25:00 Hct 33 % Low 06/18/25 03:51:00 Hct 32.8 % Low 06/17/25 06:47:00 Hct 34.3 % 06/16/25 17:09:00 Hct 38.4 % 06/16/25 10:25:00 Platelet 268 10^3/mcL 06/18/25 03:51:00 Platelet 240 10^3/mcL 06/17/25 06:47:00 Platelet 263 10^3/mcL 06/16/25 17:09:00 Platelet 297 10^3/mcL 06/16/25 10:25:00 APTT 51.7 seconds High 06/18/25 03:51:00 APTT 46.8 seconds High 06/17/25 20:40:00 APTT 40.2 seconds High 06/17/25 12:38:00 APTT 54.3 seconds High 06/17/25 06:47:00 APTT 71.7 seconds High 06/16/25 23:54:00 APTT 33.8 seconds 06/16/25 17:09:00 Protime 14.4 seconds 06/16/25 17:09:00 PT International Ratio 1.2 ratio 06/16/25 17:09:00 Glucose Level 145 mg/dL High 06/18/25 03:51:00 Glucose Level 106 mg/dL 06/17/25 06:47:00 Glucose Level 135 mg/dL High 06/16/25 10:25:00 Sodium Level 143 mEq/L 06/18/25 03:51:00 Sodium Level 139 mEq/L 06/17/25 06:47:00 Sodium Level 139 mEq/L 06/16/25 10:25:00 Potassium Level 3.6 mEq/L 06/18/25 03:51:00 Potassium Level 4 mEq/L 06/17/25 06:47:00 Potassium Level 3.2 mEq/L Low 06/16/25 10:25:00 Chloride 105 mEq/L 06/18/25 03:51:00 Chloride 103 mEq/L 06/17/25 06:47:00 Chloride 100 mEq/L 06/16/25 10:25:00 CO2 31 mEq/L 06/18/25 03:51:00 CO2 28 mEq/L 06/17/25 06:47:00 CO2 26 mEq/L 06/16/25 10:25:00 BUN 32 mg/dL High 06/18/25 03:51:00 BUN 30 mg/dL High 06/17/25 06:47:00 BUN 25 mg/dL High 06/16/25 10:25:00 Creatinine Lvl (s) 1.02 mg/dL 06/18/25 03:51:00 Creatinine Lvl (s) 1.05 mg/dL 06/17/25 06:47:00 Creatinine Lvl (s) 1.02 mg/dL 06/16/25 10:25:00 Magnesium Lvl 2.5 mg/dL High 06/18/25 03:51:00 Magnesium Lvl 2.1 mg/dL 06/17/25 06:47:00 Magnesium Lvl 2 mg/dL 06/16/25 10:25:00 Phosphorus 4.2 mg/dL 06/16/25 10:25:00 Calcium Ionized 1.09 mmol/L Low 06/18/25 03:51:00 Lactic Acid Lvl 2 mmol/L 06/16/25 18:48:00 Lactic Acid Lvl 2.1 mmol/L 06/16/25 15:32:00 Lactic Acid Lvl 1.5 mmol/L 06/16/25 12:34:00 Lactic Acid Lvl 1.7 mmol/L 06/16/25 10:25:00 Blood Gases pH: 7.47 High (06/18/25 03:58:00) pCO2: 37.4 mm Hg (06/18/25 03:58:00) pO2: 98.2 mm Hg (06/18/25 03:58:00) HCO3: 26.6 mmol/L (06/18/25 03:58:00) CO2 Totl: 27.8 mmol/L (06/18/25 03:58:00) Base Excess: 2.9 mmol/L (06/18/25 03:58:00) O2 Sat: 97.1 % High (06/18/25 03:58:00) Imaging Results and Diagnostics Chest Xray/CT/MRI/KUB/2-D Echo Infectious Disease Current Infection Site/Type Culture Results Medications Inpatient aspirin, 81 mg= 1 tab(s), Oral, qDayM budesonide 0.25 mg/2 mL inhalation suspension, 0.25 mg= 2 mL, Inhalation, BIDRT Dextrose, 25 gram(s)= 50 mL, IV Push, AsDirected, PRN DuoNeb, 3 mL, Inhalation, QIDRT Heparin for IV 25,000 unit(s) [12 unit(s)/kg/hr] + Dextrose 5% Premix Diluent 250 mL Heparin HBW CARDIAC Bolus 5000 units/mL, 3090 unit(s)= 0.62 mL, 60 unit(s)/kg, IV Push, q6h, PRN losartan, 25 mg= 1 tab(s), Oral, qDay methylPREDNISolone sodium succinate 40 mg preservative-free injection, 30 mg= 0.75 mL, IV Push, q8h Peridex 0.12% oral rinse liquid, 15 mL, Swish & Spit, QID potassium chloride bolus, 20 mEq= 100 mL, IV Piggyback, AsDirected, PRN potassium chloride bolus, 20 mEq= 100 mL, IV Piggyback, AsDirected, PRN potassium chloride bolus, 40 mEq= 100 mL, IV Piggyback, AsDirected, PRN potassium chloride bolus, 20 mEq= 100 mL, IV Piggyback, AsDirected, PRN potassium chloride bolus, 20 mEq= 100 mL, IV Piggyback, AsDirected, PRN Propofol for IV 1,000 mg [10 mcg/kg/min] + IV Premix Diluent titrate 100 mL Protonix IV Push, 40 mg, IV Push, qDayAC Puralube ophth solution, 1 drop(s), Eyes, both, q8h Puralube ophth solution, 1 drop(s), Eyes, both, AsDirected, PRN Puralube ophthalmic ointment, 1 benitez, Eyes, both, q8h Puralube ophthalmic ointment, 1 benitez, Eyes, both, AsDirected, PRN Sublimaze, 12.5 mcg= 0.25 mL, IV Push, q2h, PRN Versed, 1 mg= 1 mL, IV Push, q2h, PRN Home albuterol MDI (90 mcg/inh) CFC free inhalation aerosol, 1 puff(s), Inhalation, q4h, PRN, 3 refills aspirin 81 mg oral delayed release tablet, 81 mg= 1 tab(s), Oral, Daily Coreg 6.25 mg oral tablet, 6.25 mg= 1 tab(s), Oral, BID Crestor 40 mg oral tablet, 40 mg= 1 tab(s), Oral, Daily Entresto 97 mg-103 mg oral tablet, 1 tab(s), Oral, BID, 2 refills Klor-Con M20 oral tablet, extended release, 20 mEq= 1 tab(s), Oral, BID, 5 refills Lasix 20 mg oral tablet, 20 mg= 1 tab(s), Oral, BID oxybutynin 10 mg/24 hr oral tablet, extended release, 10 mg= 1 tab(s), Oral, qDay Plavix 75 mg oral tablet, 75 mg= 1 tab(s), Oral, qDay Singulair 10 mg oral tablet, 10 mg= 1 tab(s), Oral, qDay Zetia 10 mg oral tablet, 10 mg= 1 tab(s), Oral, qDay Assessment/Plan Acute Hypercapnic and Hypoxic Respiratory Failure secondary to Pulmonary Edema COPD exacerbation resolved Lactic acidemia resolving Elevated NT pro BNP Troponemia (uptrending) Raised BUN and creatinine baseline unclear. Tobacco use disorder Transaminitis with raised ALP/raised AST/raised ALT -possible DILI from Atorvastatin. Total bili normal. Plan 1. Intubated with AC 400/14/30%/5, saturating well. Propofol held and patient was on CPAP for an hour, saturated well, she is extubated. Hydralazine 10 IV given because her BP was high before extubation. Post extubation, patient had flash Pulmonary edema, Morphine 2 mg given and Precedex initiated. Will continue to monitor Use BiPAP for work of breathing and pulmonary edema. May require reintubation 2. Lasix 40 mg IV given 3. Continue losartan 25 mg once daily 4. Continue tube feeding 5. Bronchodilator treatments as well as steroids 6. Blood cultures to follow 7. Sputum culture is negative 8. Discussed with Cardiology, as troponin are trending upwards AND echocardiogram demonstrating segmental wall motion abnormality, further evaluation of ischemia is anticipated if compliance can be ensured CODE STATUS full code DVT prophylaxis with heparin SQ NG feeding Prognosis remains guarded 34 minutes Critical Care time Sammie Zaragoza M.D., [facility] High degree of medical complexity noted in this patient with review of external notes and results of tests, ordering of new tests, and an independent review of the patient. I reviewed tests ordered by other physicians and reviewed my assessment with other health care providers. Code Status Code Status - Ordered -- 06/16/25 10:01:00 EDT, Full Code, Constant Order Digitally Signed by ANTONIETA NIELSON MD on 06/18/2025 11:56 AM Digitally Signed by SAMMIE ZARAGOZA MD on 06/18/2025 12:13 PM [facility] [id number] Note* Exam Date Time Procedure Performing Provider Status 06/17/25 6:53 AM XR Chest 1 View GENARO NO MD; Auth (Verified) [id number] ORIGINAL EXAMINATION: ONE XRAY VIEW OF THE CHEST 06/17/2025 6:53 am COMPARISON: Chest x-ray on 06/16/2025 HISTORY: ORDERING SYSTEM PROVIDED HISTORY: Reason for Exam: ventilator, concern cap FINDINGS: The endotracheal tube tip is 4.5 cm above the steve. Enteric tube tip and side port are in the stomach. The heart size is normal. The lungs are hyperexpanded. Coarse interstitial lung markings appear chronic and unchanged compared with exam from 09/02/2023. No pleural fluid or pneumothorax is present. IMPRESSION: 1. Chronic obstructive pulmonary disease. 2. No acute cardiopulmonary process. Interpreted by: Genaro No MD Preliminary Report By: Genaro No MD Electronically signed By Genaro No MD Dictated Date: 06/17/2025 6:56:27 AM Prelim Date: 06/17/2025 6:58:17 AM Sign Date: 06/17/2025 6:58:17 AM Ordering Provider: DEVIN DIAMOND [facility] [id number] Note Date of Service 06-17-2025 ICU Day 2 Significant Comorbidities/Current Illness 70-year-old female with history of CAD status post PCI to RCA in , cardiomyopathy (thought to be Takotsubo cardiomyopathy), COPD, bipolar, tobacco use, GERD, anxiety, depression, history of suicide attempt in 2010. Presented to pulmonary hospital with COPD exacerbation. developed hypoxic respiratory failure requiring intubation and mechanical ventilation and COPD transfer for pulmonary and hospital At [facility]. Vitals BP 114/67, MAP 83, HR 110, RR 34, O2 sat 82%. Chest x-ray showed severe hyperinflation, EKG on showing sinus tachycardia. Normal axis. Labs Hb 13.5, WBC 12.1, PLT 365. VBG (3 AM) pH 7.08, CO2 101, O2 33 -repeat VBG at 5 AM pH 7.02, CO2 109, O2 42. Ptt 29.1. INR 1.1 PT 11.8 Blood chemistry NA 136, K4.0, CL 95, CO2 28.5, glucose 266, BUN 27, creat 1.55, EGFR 33 AST 145, ALT P139, Ca 9.0, TP 7.5, AG 17, T. bili 0.7, ALT 104. D- dimer 5358. Lactate 3.9, NT proBNP 4094. Troponin elevation at 217 282. Patient intubated at 0430 hrs. on 2024. With a 7.5endotracheal tube. (Succinylcholine). ET tube placement confirmed by chest x-ray. Diagnoses of acute respiratory failure hypoxemia and acute exacerbation of COPD (emphysematous) [facility]. Current vent settings FiO2 40%, tidal volume 400, respiratory 18, PEEP of 5. 24 Hour Summary 1- Seen by Cardiology, we consulted them for type 2 Heart block and positive trending trops, they advised as follows, When LFT resolve, start high dose statin and for potential LHC with patient when extubated and to discuss compliance with DAPT potentially Echo 06/16/25 done resulting, Left ventricle wall thickness is mildly to moderately increased. Concentric Left Ventricular Hypertrophy Systolic function is moderately to severely reduced. The estimated ejection fraction is 30-35%. There is mild diffuse hypokinesis. Severe hypokinesis of the mid-apical anteroseptal, anterior, inferoseptal, and apical myocardium. Diastolic dysfunction present but unable to assess severity. Ventricular septum: Thickness is moderately increased. Mitral valve annulusmoderately calcified, with mild regurgitation. Right ventricle Systolic function is mildly reduced.The estimated right atrial pressure is 8 mm Hg. 2- UDS is positive for Cannabis 3- She failed weaning attempt this morning, with the NIF -7, & SBI 143, RR 31, and tidal [id number]. Minute volume was 5.9. 4-collateral history obtained from the , he admitted that she is not compliant with any of her medications. He also admitted that she was acutely sick, her shortness of breathing happened in ashort period of time of few hours. He also admitted that she is a heavy smoker, and smokes cannabisabout 3 joints every day. Physical Exam Vitals and Measurements T: 37.0 C (Oral) TMIN: 36.7 C (Oral) TMAX: 37.1 C (Oral) HR: 68 (Monitored) RR: 18 BP: 132/77 SpO2:99% HT: 160 cm WT: 51.5 kg BMI: 20.12 Weight Dosing Weight: 51.5 kg (06/16/25) Intubated with AC: 400/18/30%/5 GENERAL: Patient comfortably lying on bed with ET tube in position. HEAD: Normocephalic, atraumatic, anicteric, acyanotic NECK: supple, no JVD, no mass or thyromegaly. CARDIAC: S1S2,RRR, no murmurs or rubs or gallops RESPIRATORY: Air entry equal bilaterally, no wheeze/rhonchi, bilateral few fine crepitations positive ABDOMEN: soft , Nontender, no organomegaly, bowel sounds heard; Madrigal's in position draining clear urine MUSCULOSKELETAL: full ROM , no gross deformities EXTREMETIES: no edema or calf tenderness, pulses full and equal in all limbs NEUROLOGICAL: intubated/sedated SKIN: no rash or ulcers Oxygenation FiO2 30% O2 Sat 99% Sedation Propafol GI Prophlyaxis Pantoprazole DVT Prophlyaxis Heparin IV Infusions RL @ 75ml/hr Nutrition Started on tube feeding Lines/Drains ET tube OG tube Madrigal's Cath 2 peripheral lines Intake and Output 7AM Yesterday to 7AM Today Intake and Output (Last 24 hours) Intake Enteral Tube Flush: 40.00 Tube Feeding Intake 0.00 Administration Information 836.66 Oral Intake 0.00 Output Urinary Catheter Output: 1300.00 Stool Count 2.00 Total Summary Total Intake 876.66 Total Output 1300.00 Fluid Balance -423.34 Critical Labs Event Name Event Result Date/Time WBC 12.1 10^3/mcL High 06/16/25 17:09:00 WBC 20.2 10^3/mcL High 06/16/25 10:25:00 Hgb 11.3 G/dL Low 06/16/25 17:09:00 Hgb 12.4 G/dL 06/16/25 10:25:00 Hct 34.3 % 06/16/25 17:09:00 Hct 38.4 % 06/16/25 10:25:00 Platelet 263 10^3/mcL 06/16/25 17:09:00 Platelet 297 10^3/mcL 06/16/25 10:25:00 APTT 71.7 seconds High 06/16/25 23:54:00 APTT 33.8 seconds 06/16/25 17:09:00 Protime 14.4 seconds 06/16/25 17:09:00 PT International Ratio 1.2 ratio 06/16/25 17:09:00 Glucose Level 135 mg/dL High 06/16/25 10:25:00 Sodium Level 139 mEq/L 06/16/25 10:25:00 Potassium Level 3.2 mEq/L Low 06/16/25 10:25:00 Chloride 100 mEq/L 06/16/25 10:25:00 CO2 26 mEq/L 06/16/25 10:25:00 BUN 25 mg/dL High 06/16/25 10:25:00 Creatinine Lvl (s) 1.02 mg/dL 06/16/25 10:25:00 Magnesium Lvl 2 mg/dL 06/16/25 10:25:00 Phosphorus 4.2 mg/dL 06/16/25 10:25:00 Lactic Acid Lvl 2 mmol/L 06/16/25 18:48:00 Lactic Acid Lvl 2.1 mmol/L 06/16/25 15:32:00 Lactic Acid Lvl 1.5 mmol/L 06/16/25 12:34:00 Lactic Acid Lvl 1.7 mmol/L 06/16/25 10:25:00 Blood Gases pH: 7.442 (06/17/25 04:13:00) pCO2: 38 mm Hg (06/17/25 04:13:00) pO2: 104.6 mm Hg (06/17/25 04:13:00) HCO3: 25.3 mmol/L (06/17/25 04:13:00) CO2 Totl: 26.5 mmol/L (06/17/25 04:13:00) Base Excess: 1.3 mmol/L (06/17/25 04:13:00) O2 Sat: 97.7 % High (06/17/25 04:13:00) Imaging Results and Diagnostics Chest Xray/CT/MRI/KUB/2-D Echo Infectious Disease Current Infection Site/Type Culture Results Medications Inpatient aspirin, 81 mg= 1 tab(s), Oral, qDayM budesonide 0.25 mg/2 mL inhalation suspension, 0.25 mg= 2 mL, Inhalation, BIDRT cefTRIAXone, 2 gram(s)= 20 mL, IV Push (INT), Once Dextrose, 25 gram(s)= 50 mL, IV Push, AsDirected, PRN DuoNeb, 3 mL, Inhalation, QIDRT Heparin for IV 25,000 unit(s) [12 unit(s)/kg/hr] + Dextrose 5% Premix Diluent 250 mL Heparin HBW CARDIAC Bolus 5000 units/mL, 3090 unit(s)= 0.62 mL, 60 unit(s)/kg, IV Push, q6h, PRN Lactated Ringers Infusion 1,000 mL, 1000 mL, Intravenous Peridex 0.12% oral rinse liquid, 15 mL, Swish & Spit, QID potassium chloride bolus, 20 mEq= 100 mL, IV Piggyback, AsDirected, PRN potassium chloride bolus, 20 mEq= 100 mL, IV Piggyback, AsDirected, PRN potassium chloride bolus, 40 mEq= 100 mL, IV Piggyback, AsDirected, PRN potassium chloride bolus, 20 mEq= 100 mL, IV Piggyback, AsDirected, PRN potassium chloride bolus, 20 mEq= 100 mL, IV Piggyback, AsDirected, PRN Propofol for IV 1,000 mg [10 mcg/kg/min] + IV Premix Diluent titrate 100 mL Protonix IV Push, 40 mg, IV Push, qDayAC Puralube ophth solution, 1 drop(s), Eyes, both, q8h Puralube ophth solution, 1 drop(s), Eyes, both, AsDirected, PRN Puralube ophthalmic ointment, 1 benitez, Eyes, both, q8h Puralube ophthalmic ointment, 1 benitez, Eyes, both, AsDirected, PRN Sublimaze, 12.5 mcg= 0.25 mL, IV Push, q2h, PRN Versed, 1 mg= 1 mL, IV Push, q2h, PRN Home albuterol MDI (90 mcg/inh) CFC free inhalation aerosol, 1 puff(s), Inhalation, q4h, PRN, 3 refills aspirin 81 mg oral delayed release tablet, 81 mg= 1 tab(s), Oral, Daily Coreg 6.25 mg oral tablet, 6.25 mg= 1 tab(s), Oral, BID Crestor 40 mg oral tablet, 40 mg= 1 tab(s), Oral, Daily Entresto 97 mg-103 mg oral tablet, 1 tab(s), Oral, BID, 2 refills Klor-Con M20 oral tablet, extended release, 20 mEq= 1 tab(s), Oral, BID, 5 refills Lasix 20 mg oral tablet, 20 mg= 1 tab(s), Oral, BID oxybutynin 10 mg/24 hr oral tablet, extended release, 10 mg= 1 tab(s), Oral, qDay Plavix 75 mg oral tablet, 75 mg= 1 tab(s), Oral, qDay Singulair 10 mg oral tablet, 10 mg= 1 tab(s), Oral, qDay Zetia 10 mg oral tablet, 10 mg= 1 tab(s), Oral, qDay Assessment/Plan Acute Hypercapnic and Hypoxic Respiratory Failure secondary to Pulmonary Edema COPD exacerbation, less likely Lactic acidemia resolving Elevated NT pro BNP Troponemia (uptrending) Raised BUN and creatinine baseline unclear. Tobacco use disorder Transaminitis with raised ALP/raised AST/raised ALT -possible DILI from Atorvastatin. Total bili normal. Plan 1. Maintain mechanical ventilatory support 2. Start Lasix 40 mg once today and DC IV fluid Ringer lactate @ 75 mL/h 3. Start losartan 25 mg once daily 4. DC ceftriaxone, Azithromycin DC due to negative atypical 5. Start tube feeding 6. Bronchodilator treatments as well as steroids 7. Blood cultures to follow 8. CTA - Will hold due to Renal indices. 9. Discussed with Cardiology, as troponin are trending upwards AND echocardiogram demonstrating segmental wall motion abnormality, further evaluation of ischemia if compliance can be ensured CODE STATUS full code DVT prophylaxis with heparin SQ NG feeding I was present for, and personally supervised, the [place] components of the patient's evaluation and management by the resident housestaff today. I have examined the patient and reviewed diagnostic data.I reviewed the note of the resident. It documents the interval history obtained, examination performed, and diagnostic testing results compiled by them. I have made changes in the sections as needed. 34 minutes Critical Care time Sammie Zaragoza M.D., [facility] High degree of medical complexity noted in this patient with review of external notes and results of tests, ordering of new tests, and an independent review of the patient. I reviewed tests ordered by other physicians and reviewed my assessment with other health care providers. Code Status Code Status - Ordered -- 06/16/25 10:01:00 EDT, Full Code, Constant Order Digitally Signed by ANTONIETA NIELSON MD on 06/17/2025 12:25 PM Digitally Signed by SAMMIE ZARAGOZA MD on 06/17/2025 12:37 PM [facility] [id number] Note* Exam Date Time Procedure Performing Provider Status 06/16/25 4:12 PM Electrocardiogram - EKG - CV JAIRO LIMA MD; Auth (Verified) ECG Final Report Sinus rhythm Atrial premature complex Anterior infarct, age indeterminate Prolonged QT interval Electronic Signature: JAIRO PÉREZ MD 06/17/2025 20:33:19 [facility] [id number] Pastoral care Progress note Pastoral Care Note Entered On: 06/16/2025 16:08 EDT Performed On: 06/16/2025 10:15 EDT by Krystian Adams Pastoral Care Spiritual Care Visit Initiated by : Consult/Referral Type of Pastoral Visit : Initial visit Spiritual Care Intervention : Intubated/no response, Left calling card Spiritual Plan of Care : Visit as Requested Pastoral Care Visit Length : 5 minute(s) Krystian Adams - 06/16/2025 16:08 EDT Digitally Signed by Krystian Adams on 06/16/2025 04:08 PM [address]25-2025 Cardiology Consult note Date of Service 06/16/2025 16:00:17 Reason for Consultation AV block and elevated troponin Referring Physician MICU History of Present Illness 70-year-old female with history of CAD status post PCI to RCA in , cardiomyopathy (thought to be Takotsubo cardiomyopathy), COPD, bipolar, tobacco use, GERD, anxiety, depression, history of suicide attempt in 2010 Presented for dyspnea on exertion with coughing/wheezing. Required intubation/mechanical ventilation. Cardiology consulted for type II block and elevated troponin. Current vitals show systolics 140s, heart rate 70s to 80s on 40% FiO2. Labs show significant leukocytosis 20.2, hemoglobin 12.4, creatinine 1.02, potassium 3.2, magnesium2, AST 203, ALT 133, normal lactate, troponin rising 217, 282, 951, 1085 EKG shows irregular rhythm. Echo 06/16/25: Summary: 1. Left ventricle: The cavity size is normal. Wall thickness is mildly to moderately increased. Concentric Left Ventricular Hypertrophy Systolic function is moderately to severely reduced. The estimated ejection fraction is30-35%. There is mild diffuse hypokinesis. Severe hypokinesis of the mid-apical anteroseptal, anterior, inferoseptal, and apical myocardium. Diastolic dysfunction present but unable to assess severity. 2. Ventricular septum: Thickness is moderately increased. 3. Mitral valve: The annulus is moderately calcified. The leaflets are mildly thickened and mildly calcified. There is mild regurgitation. 4. Right ventricle: Systolic function is mildly reduced. 5. Right atrium: The estimated right atrial pressure is 8 mm Hg. [facility] 08/2023: SUMMARY: 1. Left ventricle: Systolic function is at the lower limits of normal. The estimated ejection fraction is 50%. Hypokinesis. 2. LAD: Mid-vessel lesion: There is a 50% stenosis. Distal vessel lesion: There is a 70% stenosis. 3. Left circumflex: Mid-vessel lesion: There is a 60% stenosis. 4. 1st obtuse marginal: Proximal vessel lesion: There is a 99% stenosis. 5. Right coronary: Proximal vessel lesion: There is a 50% in-stent recurrent stenosis. IMPRESSIONS: The study demonstrates moderate coronary artery disease. Review of Systems Per HPI, Complete ROS otherwise negative Physical Exam Vitals and Measurements T: 37.0 C (Oral) TMIN: 36.7 C (Oral) TMAX: 37.0 C (Oral) HR: 80 (Monitored) RR: 87 BP: 140/79 SpO2:95% HT: 160 cm WT: 51.5 kg BMI: 20.12 Weight Dosing Weight: 51.5 kg (06/16/25) General: Intubated/ventilated/sedated Cardiac: Irregular rhythm Lab Results 06/16 10:25 WBC: 20.2 H Hgb: 12.4 Hct: 38.4 Platelet: 297 Neutrophil %: 95.6 H Glucose Level: 135 H Sodium Level: 139 Potassium Level: 3.2 L BUN: 25.0 H Creatinine Lvl (s): 1.02 Assessment/Plan AHRF/COPD exacerbation Elevated troponin - Type 2 versus 1 New wall motion abnormality MAT Hx of Takotsubo CM Hx of: 70-year-old female with history of CAD status post PCI to RCA in , cardiomyopathy (thought to be Takotsubo cardiomyopathy), COPD, bipolar, tobacco use, GERD, anxiety, depression, history of suicide attempt in 2010 Presented for dyspnea on exertion with coughing/wheezing. Required intubation/mechanical ventilation. Cardiology consulted for type II block and elevated troponin. Current vitals show systolics 140s, heart rate 70s to 80s on 40% FiO2. Labs show significant leukocytosis 20.2, hemoglobin 12.4, creatinine 1.02, potassium 3.2, magnesium2, AST 203, ALT 133, normal lactate, troponin rising 217, 282, 951, 1085 EKG shows irregular rhythm. Recommendations reports patient stopped taking medications a few weeks ago. Aspirin, heparin drip When LFT resolve, start high dose statin Will discuss potential LHC with patient when extubated. Will need to discuss compliance with DAPT potentially Has runs of MAT Problem List/Past Medical History Ongoing CAD in [place] artery Cardiomyopathy Hypertension Mitral valve regurgitation Syncope Procedure/Surgical History Echocardiogram: 09/04/23 Cardiac catheterization: 09/03/[address]: 09/02/23 6MWT - 6 minute walk test: 01/26/21 Pulmonary function test: 01/25/21 Duplex ultrasound of carotid artery: 01/06/17 Doppler ultrasound of renal artery: 12/27/16 Cardiac catheterization Medications Inpatient azithromycin IV budesonide 0.25 mg/2 mL inhalation suspension, 0.25 mg= 2 mL, Inhalation, BIDRT cefTRIAXone, 2 gram(s)= 20 mL, IV Push (INT), Once Dextrose, 25 gram(s)= 50 mL, IV Push, AsDirected, PRN DuoNeb, 3 mL, Inhalation, QIDRT heparin 5000 units/mL injection, 5000 unit(s)= 1 mL, Subcutaneous, q8h Lactated Ringers Infusion 1,000 mL, 1000 mL, Intravenous Peridex 0.12% oral rinse liquid, 15 mL, Swish & Spit, QID potassium chloride bolus, 20 mEq= 100 mL, IV Piggyback, AsDirected, PRN potassium chloride bolus, 20 mEq= 100 mL, IV Piggyback, AsDirected, PRN potassium chloride bolus, 20 mEq= 100 mL, IV Piggyback, AsDirected, PRN potassium chloride bolus, 40 mEq= 100 mL, IV Piggyback, AsDirected, PRN potassium chloride bolus, 20 mEq= 100 mL, IV Piggyback, AsDirected, PRN potassium chloride bolus, 20 mEq= 100 mL, IV Piggyback, AsDirected, PRN Propofol for IV 1,000 mg [10 mcg/kg/min] + IV Premix Diluent titrate 100 mL Protonix IV Push, 40 mg, IV Push, qDayAC Puralube ophth solution, 1 drop(s), Eyes, both, q8h Puralube ophth solution, 1 drop(s), Eyes, both, AsDirected, PRN Puralube ophthalmic ointment, 1 benitez, Eyes, both, q8h Puralube ophthalmic ointment, 1 benitez, Eyes, both, AsDirected, PRN Home albuterol MDI (90 mcg/inh) CFC free inhalation aerosol, 1 puff(s), Inhalation, q4h, PRN, 3 refills aspirin 81 mg oral delayed release tablet, 81 mg= 1 tab(s), Oral, Daily Coreg 6.25 mg oral tablet, 6.25 mg= 1 tab(s), Oral, BID Crestor 40 mg oral tablet, 40 mg= 1 tab(s), Oral, Daily Entresto 97 mg-103 mg oral tablet, 1 tab(s), Oral, BID, 2 refills Klor-Con M20 oral tablet, extended release, 20 mEq= 1 tab(s), Oral, BID, 5 refills Lasix 20 mg oral tablet, 20 mg= 1 tab(s), Oral, BID oxybutynin 10 mg/24 hr oral tablet, extended release, 10 mg= 1 tab(s), Oral, qDay Plavix 75 mg oral tablet, 75 mg= 1 tab(s), Oral, qDay Singulair 10 mg oral tablet, 10 mg= 1 tab(s), Oral, qDay Zetia 10 mg oral tablet, 10 mg= 1 tab(s), Oral, qDay Allergies NKA Social History Alcohol Use: none., 09/28/2023 Nutrition/Health Caffeine intake amount: 3-4 cups per day., 09/28/2023 Substance Abuse Use: Past. Type: Marijuana., 01/22/2024 Tobacco Nicotine Use: 5-9 cigarettes (between 1/4 to 1/2 pack)/day in last 30 days, 10 or more cigarettes (1/2 pack or more)/day in last 30 days., 2024 Family History Cancer: Sister and Brother. Seizure disorder: Mother and Sister. Health Status Family Member(s) Immunizations pneumococcal 13-valent conjugate vaccine: 0.5 unknown unit (11/05/20) pneumococcal 23-valent vaccine(Pneumovax: 0.5 unknown unit (09/23/19) SARS-CoV-2 (COVID-19) mRNA-1273 vaccine: 0.5 unknown unit (10/11/21) Digitally Signed by MELANIE CLEMONS DO on 06/16/2025 04:25 PM [facility] [id number] Evaluation + Plan noteExtracted from: Title:History and Physical Author:BELLA DOS SANTOS MD Date:06/16/25 Acute on chronic hypoxic and hypercapnic respiratory failure requiring mechanical ventilation. COPD exacerbation - rule out infection Lactic acidemia Elevated NT pro BNP Troponemia (uptrending) Raised BUN and creatinine baseline unclear. Tobacco use disorder Transaminitis with raised ALP/raised AST/raised ALT -possible DILI from Atorvastatin. Total bili normal. CODE STATUS full code DVT prophylaxis with heparin subacute N.p.o. Plan Maintain mechanical ventilatory support Bronchodilator treatments as well as steroids Trend troponins, EKG -serial Trend lactate Respiratory panel Azithromycin, ceftriaxone for coverage of possible CAP. CMP, CBC, magnesium, phosphorus, Blood cultures respiratory culture + atypical screen, streptococcal antigen. Chest x-ray -to determine presence of pulmonary edema ECHO CTA - Will hold due to Renal indices. To consider Cardiac consult: if troponins are trending upwards or echocardiogram demonstrating segmental wall motion abnormality. I was present for, and personally supervised, the [place] components of the patient's evaluation and management by the resident housestaff today. I have examined the patient and reviewed diagnostic data. I reviewed the note of the resident. It documents the interval history obtained, examination performed, and diagnostic testing results compiled by them. I have made changes in the sections as needed. 34 minutes Critical Care time Sammie Zaragoza M.D., [facility] High degree of medical complexity noted in this patient with review of external notes and results of tests, ordering of new tests, and an independent review of the patient. I reviewed tests ordered by other physicians and reviewed my assessment with other health care providers. Future Scheduled Tests Laboratory* Basic Metabolic Panel 03/13/25 [facility] 08-25-2025 Note* Exam Date Time Procedure Performing Provider Status 06/16/25 1:35 PM Electrocardiogram - EKG - CV JAIRO LIMA MD; Auth (Verified) ECG Final Report WANDERING [employer]IAL PACEMAKER Consider left ventricular hypertrophy Inferior infarct, old Prolonged QT interval Electronic Signature: JAIRO PÉREZ MD 06/17/2025 20:33:08 [facility] [id number] Note* Exam Date Time Procedure Performing Provider Status 06/16/25 1:27 PM Echocardiogram, Adult - CV JAIRO BEJARANO MD; Auth (Verified) [facility] [id number] Note. MICRO - Microbiology PROCEDURE: Legionella Urine Ag [*1] SOURCE: Urine BODY SITE: COLLECTED DATE/TIME: 06/16/2025 11:09 EDT RECEIVED DATE/TIME: 06/16/2025 11:17 EDT START DATE/TIME: 06/16/2025 11:17 EDT FREE TEXT SOURCE: FINAL REPORTS Final Report [] Verified Date/Time/Personnel: 06/16/2025 12:07 EDT Presumptive negative for L. pneumophila serogroup 1 antigen in urine, suggesting no recent or current infection. Legionnaire's disease cannot be ruled out since other serogroups and species may also cause disease. Performing Locations *1: This test was performed at: [facility], [address] [place] [address], [id number] , [facility]08-25-2025 Note. MICRO - Microbiology PROCEDURE: Streptococcus Pneumoniae Urine Antig [^1 *1] SOURCE: Urine, Clean Catch BODY SITE: COLLECTED DATE/TIME: 06/16/2025 11:09 EDT RECEIVED DATE/TIME: 06/16/2025 11:17 EDT START DATE/TIME: 06/16/2025 11:17 EDT FREE TEXT SOURCE: FINAL REPORTS Final Report [] Verified Date/Time/Personnel: 06/16/2025 12:07 EDT Presumptive negative for pneumococcal pneumonia, suggesting no current or recent pneumococcal infection. Infection due to Strep pneumoniae cannot be ruled out since the antigen present in the sample may be below the detection limit of the test. Interpretive Data ^1: Streptococcus Pneumoniae Urine Antig This test has not been evaluated on patients taking antibiotics for greater than 24 hours or on patients who have recently completed an antibiotic regimen. The accuracy of this test has not been proven in young children. Performing Locations *1: This test was performed at: [address], [facility] , [facility]08-25-2025 Note* Exam Date Time Procedure Performing Provider Status 06/16/25 11:30 AM VL Venous US/Doppler Both Legs(for DVT) EMILIO AVILES MD; Auth (Verified) [id number] Note* Exam Date Time Procedure Performing Provider Status 06/16/25 10:36 AM XR Chest 1 View ARANZA REDDY MD; [facility] (Verified) [id number] ORIGINAL EXAMINATION: ONE XRAY VIEW OF THE CHEST 06/16/2025 10:37 am COMPARISON: Same day HISTORY: ORDERING SYSTEM PROVIDED HISTORY: Reason for Exam: Endotracheal tube placement/og placement FINDINGS: For evaluation of the lung zones please refer to same day dedicated chest radiograph. Endotracheal tube is visualized approximately 2.6 cm from the level of the steve. A nasogastric tube is seen coursing past the level the diaphragm with side hole at the level of the gastroesophageal junction and tip within the proximal gastric fundus, further advancement is necessary. No pneumothorax. IMPRESSION: 1. Endotracheal tube is visualized approximately 2.6 cm from the level of the steve. 2. Nasogastric tube is seen coursing past the level the diaphragm with side hole at the level of the gastroesophageal junction and tip within the proximal gastric fundus, further advancement is necessary. Interpreted by: Aranza Reddy Preliminary Report By: Aranza Reddy Electronically signed By Aranza Reddy Dictated Date: 06/16/2025 10:43:41 AM Prelim Date: 06/16/2025 10:44:49 AM Sign Date: 06/16/2025 10:44:49 AM Ordering Provider: VANDANA [facility]08-25-2025 History and physical note Date of Service 06/16/2025 Chief Complaint Transferred from [facility] History of Present Illness This is 70-year-old lady with a past medical history of congestive heart failure, COPD, heart disease, hypercholesterolemia, hypertension. History of CAD previous left heart cath and 2 stents. Presented to pulmonary in hospital on 06/16/2025 at 3 AM with complaint of dyspnea on exertion with cough and wheezing. Denies sputum or chest pain acute hypoxic respiratory failure requiring intubation and mechanical ventilation and COPD transfer for pulmonary and hospital At [facility]. Vitals BP 114/67, MAP 83, HR 110, RR 34, O2 sat 82%. Chest x-ray showed severe hyperinflation, EKG on showing sinus tachycardia. Normal axis. Labs Hb 13.5, WBC 12.1, PLT 365. VBG (3 AM) pH 7.08, CO2 101, O2 33 -repeat VBG at 5 AM pH 7.02, CO2 109, O2 42. Ptt 29.1. INR 1.1 PT 11.8 Blood chemistry NA 136, K4.0, CL 95, CO2 28.5, glucose 266, BUN 27, creat 1.55, EGFR 33 AST 145, ALT P139, Ca 9.0, TP 7.5, AG 17, T. bili 0.7, ALT 104. D- dimer 5358. Lactate 3.9, NT proBNP 4094. Troponin elevation at 217 282. Patient intubated at 0430 hrs. on 2024. With a 7.5endotracheal tube. (Succinylcholine). ET tube placement confirmed by chest x-ray. Diagnoses of acute respiratory failure hypoxemia and acute exacerbation of COPD (emphysematous) and transferred to [facility]. Current vent settings FiO2 40%, tidal volume 400, respiratory 18, PEEP of 5. She was started on ceftriaxone, Solu-Medrol, azithromycin and DuoNebs and intubated at 4:30 this morning. Initiated on BiPAP due to hypoxemia and acute on chronic respiratory acidosis. FiO2 at 60%. 16/8, RR 16. Currently on GDMT, not on aspirin. Chest x-ray showing severe hyperinflation. EKG showing sinus tachycardia ABG demonstrating chronic respiratory acidosis (concern of worsening from baseline). RaisedD-dimer, raised BNP with troponinemia (uptrending). There is raised renal indices but baseline unclear. Transminitis present possibly related to Atovastatin. Lactic acidemia. This on the background of current tobacco use disorder. Past medical history as per HPI Social History Current tobacco smoker Medications Atorvastatin 80 mg p.o. OD Carvedilol 6.25 mg p.o. twice daily Entresto 49/51-1 tablet twice daily Ezetimibe 10 mg p.o. OD Klor-Con 20 mill equivalent tablet ER 1 tab p.o. twice daily Losartan 50 mg p.o. OD Montelukast 10 mg p.o. OD Oxybutynin 10 mg ER 24-hour 1 tab p.o. OD Prednisone tablet grams p.o. OD Past cardiac history 1) Cardiac catheterization on 09/03/2023 showed systolic function at lower limits of normal, EF 50%. Hypokinesis. Mid vessel lesion in mid LAD with 50% stenosis. Distal vessel lesion with 70% stenosis. Left circumflex mid vessel lesion with 60% stenosis and 1 obtuse marginal proximal lesion with 99% stenosis. Right coronary proximal vessel lesion with 50% in-stent recurrent stenosis. Recommendations at the time to continue aspirin 81 remove Plavix. As well as full GDMT and avoidance of tobacco products with cardiac rehab program. 2 stents 1 in RCA and proximal LAD. 2) Last ECHO on 11/05/2024 showed ejection fraction of 50% with normal wall motion unable to assess diastolic function. Estimated right atrial pressure 15 mmHg. 3) Holter monitor on 04/05/2025 demonstrated sinus bradycardia with PACs. Review of Systems Patient intubated And unable to give ROS. Physical Exam Vitals and Measurements T: 36.9 C (Oral) HR: 120 (Monitored) RR: 25 BP: 169/96 SpO2: 98% HT: 160 cm WT: 51.5 kg BMI: 20.12 Weight Dosing Weight: 51.5 kg (06/16/25) GENERAL: Patient comfortably lying on bed with ET tube in position. HEAD: Normocephalic, atraumatic, anicteric, acyanotic ENT: PERRLA, mucous membranes pink and moist, anicteric/acyanotic NECK: supple, no JVD, no mass or thyromegaly. CARDIAC: s1s2,RRR, no murmurs or rubs or gallops RESPIRATORY: Air entry equal bilaterally, no wheeze/crepitation/rhonchi ABDOMEN: soft , Nontender, no organomegaly, bowel sounds heard; ucath in position draining clear urine MUSCULOSKELETAL: full ROM , no gross deformities EXTREMETIES: no edema or calf tenderness, pulses full and equal in all limbs NEUROLOGICAL: inubated/sedated SKIN: no rash or ulcers PSYCHIATRIC: mood/affect appropriate, no SI/HI Lab Results No 36 Hour Lab Data Assessment/Plan Acute on chronic hypoxic and hypercapnic respiratory failure requiring mechanical ventilation. COPD exacerbation - rule out infection Lactic acidemia Elevated NT pro BNP Troponemia (uptrending) Raised BUN and creatinine baseline unclear. Tobacco use disorder Transaminitis with raised ALP/raised AST/raised ALT -possible DILI from Atorvastatin. Total bili normal. CODE STATUS full code DVT prophylaxis with heparin subacute N.p.o. Plan Maintain mechanical ventilatory support Bronchodilator treatments as well as steroids Trend troponins, EKG -serial Trend lactate Respiratory panel Azithromycin, ceftriaxone for coverage of possible CAP. CMP, CBC, magnesium, phosphorus, Blood cultures respiratory culture + atypical screen, streptococcal antigen. Chest x-ray -to determine presence of pulmonary edema ECHO CTA - Will hold due to Renal indices. To consider Cardiac consult: if troponins are trending upwards or echocardiogram demonstrating segmental wall motion abnormality. I was present for, and personally supervised, the [place] components of the patient's evaluation and management by the resident housestaff today. I have examined the patient and reviewed diagnostic data.I reviewed the note of the resident. It documents the interval history obtained, examination performed, and diagnostic testing results compiled by them. I have made changes in the sections as needed. 34 minutes Critical Care time Sammie Zaragoza M.D., [facility] High degree of medical complexity noted in this patient with review of external notes and results of tests, ordering of new tests, and an independent review of the patient. I reviewed tests ordered by other physicians and reviewed my assessment with other health care providers. Problem List/Past Medical History Ongoing CAD in [place] artery Cardiomyopathy Hypertension Mitral valve regurgitation Syncope Procedure/Surgical History Echocardiogram: 09/04/23 Cardiac catheterization: 09/03/[address]: 09/02/23 6MWT - 6 minute walk test: 01/26/21 Pulmonary function test: 01/25/21 Duplex ultrasound of carotid artery: 01/06/17 Doppler ultrasound of renal artery: 12/27/16 Cardiac catheterization Medications Home Medications (11) Active albuterol MDI (90 mcg/inh) CFC free inhalation aerosol 1 puff(s), PRN, Inhalation, q4h aspirin 81 mg oral delayed release tablet 81 mg = 1 tab(s), Oral, Daily Coreg 6.25 mg oral tablet 6.25 mg = 1 tab(s), Oral, BID Crestor 40 mg oral tablet 40 mg = 1 tab(s), Oral, Daily Entresto 97 mg-103 mg oral tablet 1 tab(s), Oral, BID Klor-Con M20 oral tablet, extended release 20 mEq = 1 tab(s), Oral, BID Lasix 20 mg oral tablet 20 mg = 1 tab(s), Oral, BID oxybutynin 10 mg/24 hr oral tablet, extended release 10 mg = 1 tab(s), Oral, qDay Plavix 75 mg oral tablet 75 mg = 1 tab(s), Oral, qDay Singulair 10 mg oral tablet 10 mg = 1 tab(s), Oral, qDay Zetia 10 mg oral tablet 10 mg = 1 tab(s), Oral, qDay Allergies NKA Social History Alcohol Use: none., 09/28/2023 Nutrition/Health Caffeine intake amount: 3-4 cups per day., 09/28/2023 Substance Abuse Use: Past. Type: Marijuana., 01/22/2024 Tobacco Nicotine Use: 5-9 cigarettes (between 1/4 to 1/2 pack)/day in last 30 days, 10 or more cigarettes (1/2 pack or more)/day in last 30 days., 2024 Family History Cancer: Sister and Brother. Seizure disorder: Mother and Sister. Health Status Family Member(s) Immunizations pneumococcal 13-valent conjugate vaccine: 0.5 unknown unit (11/05/20) pneumococcal 23-valent vaccine(Pneumovax: 0.5 unknown unit (09/23/19) SARS-CoV-2 (COVID-19) mRNA-1273 vaccine: 0.5 unknown unit (10/11/21) Code Status No qualifying data available. Digitally Signed by VANDANA DOS SANTOS MD on 06/16/2025 02:34 PM Digitally Signed by SAMMIE ZARAGOZA MD on 06/16/2025 02:49 PM Digitally Signed by VANDANA DOS SANTOS MD on 06/16/2025 03:41 PM [id number] Note. MICRO - Microbiology PROCEDURE: Blood Culture (bacterial) [*1] SOURCE: Blood BODY SITE: COLLECTED DATE/TIME: 11/04/2024 05:15 EST RECEIVED DATE/TIME: 11/04/2024 15:48 EST START DATE/TIME: 11/04/2024 15:49 EST FREE TEXT SOURCE: M/R 42367; lab 47539; [id number] FINAL REPORTS Final Report [] Verified Date/Time/Personnel: 11/09/2024 15:59 EST Blood Culture: No Growth at 5 days. PRELIMINARY REPORTS Preliminary Report [] Verified Date/Time/Personnel: 11/04/2024 16:59 EST Culture has been received in lab and is no growth to date. Routine cultures are held for 5 days. Performing Locations *1: This test was performed at: [facility], [address] [place] [address], [facility] , [facility]01-18-2025 Note. MICRO - Microbiology PROCEDURE: Blood Culture (bacterial) [*1] SOURCE: Blood BODY SITE: COLLECTED DATE/TIME: 11/04/2024 05:45 EST RECEIVED DATE/TIME: 11/04/2024 15:45 EST START DATE/TIME: 11/04/2024 15:46 EST FREE TEXT SOURCE: M/R [id number]; lab 60373; [id number] FINAL REPORTS Final Report [] Verified Date/Time/Personnel: 11/09/2024 15:59 EST Blood Culture: No Growth at 5 days. PRELIMINARY REPORTS Preliminary Report [] Verified Date/Time/Personnel: 11/04/2024 16:59 EST Culture has been received in lab and is no growth to date. Routine cultures are held for 5 days. Performing Locations *1: This test was performed at: [address], [address] [place] [address] [id number] Note. MICRO - Microbiology PROCEDURE: Blood Culture (bacterial) [*1] SOURCE: Blood BODY SITE: COLLECTED DATE/TIME: 11/04/2024 12:51 EST RECEIVED DATE/TIME: 11/04/2024 13:15 EST START DATE/TIME: 11/04/2024 13:15 EST FREE TEXT SOURCE: FINAL REPORTS Final Report [] Verified Date/Time/Personnel: 11/09/2024 14:00 EST Blood Culture: No Growth at 5 days. PRELIMINARY REPORTS Preliminary Report [] Verified Date/Time/Personnel: 11/04/2024 13:59 EST Culture has been received in lab and is no growth to date. Routine cultures are held for 5 days. Performing Locations *1: This test was performed at: [address], [address] [place] [address] [id number] Note. MICRO - Microbiology PROCEDURE: Blood Culture (bacterial) [*1] SOURCE: Blood BODY SITE: COLLECTED DATE/TIME: 11/04/2024 12:51 EST RECEIVED DATE/TIME: 11/04/2024 13:15 EST START DATE/TIME: 11/04/2024 13:15 EST FREE TEXT SOURCE: FINAL REPORTS Final Report [] Verified Date/Time/Personnel: 11/09/2024 14:00 EST Blood Culture: No Growth at 5 days. PRELIMINARY REPORTS Preliminary Report [] Verified Date/Time/Personnel: 11/04/2024 13:59 EST Culture has been received in lab and is no growth to date. Routine cultures are held for 5 days. Performing Locations *1: This test was performed at: [address], [address] [place] [address] [id number] Discharge summary Date of Service 11/09/2024 Discharge Diagnosis 1. Acute over chronic toxic and hypercapnic respiratory failure 2. Possible pneumonia, completed the course of antibiotics. 3. Acute pulmonary edema. 4. Concerns of A-fib with RVR was ruled out. 5. Possible sinus tachycardia with PACs. 6. Lactic acidosis, resolved. 7. Coronary artery disease with history of stent. 8. 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 9. COPD. 10. GERD. 11. Bipolar disorder. 12. Anxiety and depression. Hospital Course 69-year-old female past medical history coronary artery disease status post stenting in the , stress-induced cardiomyopathy with recovered ejection fraction, hypertension, dyslipidemia, COPD, tobacco abuse, bipolar disorder, GERD, anxiety and depression who presented as transfer from [facility] with acute respiratory failure requiring intubation. Initial saturation on 4 L nasal cannula was 70%. Lactic acid was elevated at 4.6. She initially went to ER at [facility] with shortness of breath and wheezing. At the previous hospital patient was thought to have A-fib with RVR and she was started on Cardizem drip, and route patient was in normal sinus rhythm, and in [facility] patient was always in normal sinus rhythm, upon reviewing the EKG that was done in [facility],I do have a suspicion that the patient was having sinus tachycardia with PAC rather than A-fib. Patient was treated in the ICU, and stabilized, she did finish her course of antibiotics in the ICU, physical therapy and Occupational Therapy evaluated the patient and they recommended inpatient rehab. Patient was examined and evaluated by me today, she was awake alert and oriented, denying any chestpain shortness of breath cough fever chills, denied any abdominal pain nausea or vomiting, no headache lightness or dizziness, patient was medically optimized for discharge to rehab center today, the discharge plan was discussed with her, also was discussed with her over the phone all his questions were answered, his concerns were addressed. Allergies NKA Procedures Intubation/extubation Consults Consult to Physician - Ordered -- 11/04/24 15:11:00 ROXIE CHANEY FRANK A DPM, Routine, Toenails: onychomycotic Imaging Results and Diagnostics Please see [place] Objective Vitals and Measurements T: 36.7 C (Oral) TMIN: 36.5 C (Oral) TMAX: 36.9 C (Oral) HR: 64 (Monitored) RR: 20 BP: 161/72 SpO2:92% Weight Dosing Weight: 54.5 kg (11/04/24) Head: atraumatic normocephalic Neck: supple no JVD Lungs: clear to auscultation bilaterally, no wheezes no accessory muscle use. Heart: S1-S2 regular rate and rhythm, no murmurs Abdomen: soft nontender nondistended, bowel sounds are present all 4 quadrants Lower extremities: no cyanosis, no chronic skin changes, pulse palpable +1 bilaterally, no edema Skin: showed no rash Neurological: patient is awake alert and oriented 3, no focal neurological deficit. Pending Labs and Studies none Code Status full code Admission Date 11/04/2024 Discharge Date 11/09/2024 Medications New Prescription clopidogrel (Plavix 75 mg oral tablet)1 tab(s) by mouth once a day. Unchanged albuterol (albuterol MDI (90 mcg/inh) CFC free inhalation aerosol)1 puff(s) by inhalation every 4 hours as needed as needed for wheezing. Refills: 3. aspirin (aspirin 81 mg oral delayed release tablet)1 tab(s) by mouth every day. carvedilol (Coreg 6.25 mg oral tablet)1 tab(s) by mouth two (2) times a day. Refills: 3. ezetimibe (Zetia 10 mg oral tablet)1 tab(s) by mouth once a day. Refills: 1. furosemide (Lasix 20 mg oral tablet)1 tab(s) by mouth two (2) times a day. losartan (losartan 50 mg oral tablet)1 tab(s) by mouth every day. montelukast (Singulair 10 mg oral tablet)1 tab(s) by mouth once a day. oxybutynin (oxybutynin 10 mg/24 hr oral tablet, extended release)1 tab(s) by mouth once a day. potassium chloride (Klor-Con M20 oral tablet, extended release)1 tab(s) by mouth two (2) times a day. Refills: 5. rosuvastatin (Crestor 40 mg oral tablet)1 tab(s) by mouth every day. sacubitril-valsartan (Entresto 49 mg-51 mg oral tablet)1 tab(s) by mouth two (2) times a day. Refills: 3. Follow Up Follow Up with Mahnaz Moore for skilled care, report to [phone] When:Within 1-2 days Follow Up with ALFONSO OZUNA When:Within 1-2 days Where:[place] [place] [address]- [phone] Business (1) Follow Up Appointments Transfer of Care OT - Ordered -- Reason for therapy: WEAKNESS, 11/09/24 10:00:00 EST Transfer of Care PT - Ordered -- Reason for therapy: WEAKNESS, 11/09/24 10:00:00 EST Follow Up Labs/Studies Discharge Labs No Follow-up Labs Discharge Studies No Follow-up Studies Discharge Diet Transfer of Care Diet - Ordered -- Type of Diet: Regular Diet, 11/09/24 10:00:00 EST Discharge Activity Transfer of Care Activity - Ordered -- Activity As Tolerated, 11/09/24 10:00:00 EST Condition on Discharge stable Readmission Risk/Palliative Score LACE Score: 9 (11/08/24 10:55:00) Palliative Total Score: 1 (11/08/24 10:56:00) Discharge Disposition SNF Time Spent 33 min Digitally Signed by LOVE CARTER MD on 11/09/2024 01:12 PM [id number] Hospital Discharge instructions Patient Education 11/09/2024 10:15:52 Acute Respiratory Failure, Adult Acute Respiratory Failure, Adult Acute respiratory failure occurs when there is not enough oxygen passing from your lungs to your body. When this happens, your lungs have trouble removing carbon dioxide from the blood. This causes your blood oxygen level to drop too low as carbon dioxide builds up. Acute respiratory failure is a medical emergency. It can develop quickly, but it is temporary if treated promptly. Your lung capacity, or how much air your lungs can hold, may improve with time, exercise, and treatment. What are the causes? There are many possible causes of acute respiratory failure, including: Lung injury. Chest injury or damage to the ribs or tissues near the lungs. Lung conditions that affect the flow of air and blood into and out of the lungs, such as pneumonia,acute respiratory distress syndrome, and cystic fibrosis. Medical conditions, such as strokes or spinal cord injuries, that affect the muscles and nerves that control breathing. Blood infection (sepsis). Inflammation of the pancreas (pancreatitis). A blood clot in the lungs (pulmonary embolism). A large-volume blood transfusion. [place]. Near-drowning. Seizure. Smoke inhalation. Reaction to medicines. Alcohol or drug overdose. What increases the risk? This condition is more likely to develop in people who have: A blocked airway. Asthma. A condition or disease that damages or weakens the muscles, nerves, bones, or tissues that are involved in breathing. A serious infection. A health problem that blocks the unconscious reflex that is involved in breathing, such as hypothyroidism or sleep apnea. A lung injury or trauma. What are the signs or symptoms? Trouble breathing is the main symptom of acute respiratory failure. Symptoms may also include: Rapid breathing. Restlessness or anxiety. Skin, lips, or fingernails that appear blue (cyanosis). Rapid heart rate. Abnormal heart rhythms (arrhythmias). Confusion or changes in behavior. Tiredness or loss of energy. Feeling sleepy or having a loss of consciousness. How is this diagnosed? Your health care provider can diagnose acute respiratory failure with a medical history and physical exam. During the exam, your health care provider will listen to your heart and check for cracklingor wheezing sounds in your lungs. Your may also have tests to confirm the diagnosis and determine what is causing respiratory failure. These tests may include: Measuring the amount of oxygen in your blood (pulse oximetry). The measurement comes from a small device that is placed on your finger, earlobe, or toe. Other blood tests to measure blood gases and to look for signs of infection. Sampling your cerebral spinal fluid or tracheal fluid to check for infections. Chest X-ray to look for fluid in spaces that should be filled with air. Electrocardiogram (ECG) to look at the heart's electrical activity. How is this treated? Treatment for this condition usually takes places in a hospital intensive care unit (ICU). Treatment depends on what is causing the condition. It may include one or more treatments until your symptoms improve. Treatment may include: Supplemental oxygen. Extra oxygen is given through a tube in the nose, a face mask, or a ontiveros. A device such as a continuous positive airway pressure (CPAP) or bi-level positive airway pressure (BiPAP or BPAP) machine. This treatment uses mild air pressure to keep the airways open. A mask or other device will be placed over your nose or mouth. A tube that is connected to a motor will deliveroxygen through the mask. Ventilator. This treatment helps move air into and out of the lungs. This may be done with a bag and mask or a machine. For this treatment, a tube is placed in your windpipe (trachea) so air and oxygen can flow to the lungs. Extracorporeal membrane oxygenation (ECMO). This treatment temporarily takes over the function of the heart and lungs, supplying oxygen and removing carbon dioxide. ECMO gives the lungs a chance to recover. It may be used if a ventilator is not effective. Tracheostomy. This is a procedure that creates a hole in the neck to insert a breathing tube. Receiving fluids and medicines. Rocking the bed to help breathing. Follow these instructions at home: Take [id number] and prescription medicines only as told by your health care provider. Return to normal activities as told by your health care provider. Ask your health care provider what activities are safe for you. Keep all follow-up visits as told by your health care provider. This is important. How is this prevented? Treating infections and medical conditions that may lead to acute respiratory failure can help prevent the condition from developing. Contact a health care provider if: You have a fever. Your symptoms do not improve or they get worse. Get help right away if: You are having trouble breathing. You lose consciousness. Your have cyanosis or turn blue. You develop a rapid heart rate. You are confused. These symptoms may represent a serious problem that is an emergency. Do not wait to see if the symptoms will go away. Get medical help right away. Call your local emergency services (911 in the [place] Do not drive yourself to the hospital. This information is not intended to replace advice given to you by your health care provider. Make sure you discuss any questions you have with your health care provider. Document Released: 10/14/2014 Document Revised: 09/21/2018 Document Reviewed: 04/26/2017 [employer] Patient Education 2020 [employer] Follow Up Care 11/04/2024 07:53:19 With:Mahnaz Moore for [facility], report to [phone] Address:Unknown When:1-2 days With:ALFONSO OZUNA Address: [address] [place] [id number] [phone] Business (1) When:1-2 days [facility] 01-18-2025 Note Discharge Instructions Thank you for allowing [facility] to assist you with your healthcare needs. The following is importantdischarge information regarding your hospital visit. Your Care Team ALFONSO OZUNA MANAGER MARITIME-PUTTY GLAZER What to do next Scheduled Follow-Up Appointments Appointment Type When With Where Contact Information StatusCV Hospital Follow Up 12/06/2024 03:30 PM EST NORA ROBERT [facility]ments Follow Up with Mahnaz Moore for skilled care, report to [phone] When:Within 1-2 days Follow Up with ALFONSO OZUNA When:Within 1-2 days Where:[address] [place] [address] [phone] Business (1) The Following Activity and Diet Have Been Ordered for You Transfer of Care Activity - Ordered -- Activity As Tolerated, 11/09/24 10:00:00 EST Transfer of Care Diet - Ordered -- Type of Diet: Regular Diet, 11/09/24 10:00:00 EST The Following Equipment Has Been Ordered for You No qualifying data available. The Following Treatments Have Been Ordered for You Discharge Labs No qualifying data available. Discharge Radiology No qualifying data available. Other Therapies Transfer of Care OT - Ordered -- Reason for therapy: WEAKNESS, 11/09/24 10:00:00 EST Transfer of Care PT - Ordered -- Reason for therapy: WEAKNESS, 11/09/24 10:00:00 EST Post Acute Orders Transfer of Care Admission Level of Care - Ordered -- Level of Care SNF, 11/09/24 10:05:55 EST Transfer of Care Code Status - Ordered -- Full Code, Constant Order Transfer of Care Communication Order - Ordered -- Expect less than 30 day stay., 11/09/24 10:05:55 EST Transfer of Care Orders Electronically Signed By - Ordered -- 11/09/24 10:00:00 ESTALIS EID MD Transfer of Care Prognosis - Ordered -- Fair, Patient Aware: Yes Transfer of Care Rehab Potential - Ordered -- Rehab potential fair, 11/09/24 10:00:43 EST Someone Will Contact You Regarding These Home Health Referrals No home referrals have been ordered for you. No one will call you. Allergies NKA Immunizations This Visit Given Vaccine Dateinfluenza virus vaccine, inactivated 11/09/2024 Medications Please ask your primary doctor or pharmacist before taking any other medication not listed, including over the counter drugs, herbal medications, vitamins and or supplements as they may interact withyour home medications. What How Much When Instructions Last Dose New clopidogrel (Plavix 75 mg oral tablet) 1 tab(s) by mouth Once a day Unchanged albuterol (albuterol MDI (90 mcg/ inh) CFC free inhalation aerosol) 1 puff(s) by inhalation Every 4 hours as needed for as needed for wheezing Unchanged aspirin (aspirin 81 mg oral delayed release tablet) 1 tab(s) by mouth Every day Unchanged carvedilol (Coreg 6.25 mg oral tablet) 1 tab(s) by mouth Two (2) times a day Unchanged ezetimibe (Zetia 10 mg oral tablet) 1 tab(s) by mouth Once a day Unchanged furosemide (Lasix 20 mg oral tablet) 1 tab(s) by mouth Two (2) times a day Unchanged losartan (losartan 50 mg oral tablet) 1 tab(s) by mouth Every day Unchanged montelukast (Singulair 10 mg oral tablet) 1 tab(s) by mouth Once a day Unchanged oxybutynin (oxybutynin 10 mg/ 24 hr oral tablet, extended release) 1 tab(s) by mouth Once a day Unchanged potassium chloride (Klor-Con M20 oral tablet, extended release) 1 tab(s) by mouth Two (2) times a day Unchanged rosuvastatin (Crestor 40 mg oral tablet) 1 tab(s) by mouth Every day Unchanged sacubitril-valsartan (Entresto 49 mg-51 mg oral tablet) 1 tab(s) by mouth Two (2) times a day Please take this list to your next doctor s visit. Bring all medications you take, including over the counter medications, herbals and other supplements with you to your doctor s visit. Patients and families are reminded to discard old lists and to update any records with all medication providers or retail pharmacies. Education Materials Acute Respiratory Failure, Adult Acute respiratory failure occurs when there is not enough oxygen passing from your lungs to your body. When this happens, your lungs have trouble removing carbon dioxide from the blood. This causes your blood oxygen level to drop too low as carbon dioxide builds up. Acute respiratory failure is a medical emergency. It can develop quickly, but it is temporary if treated promptly. Your lung capacity, or how much air your lungs can hold, may improve with time, exercise, and treatment. What are the causes? There are many possible causes of acute respiratory failure, including: Lung injury. Chest injury or damage to the ribs or tissues near the lungs. Lung conditions that affect the flow of air and blood into and out of the lungs, such as pneumonia,acute respiratory distress syndrome, and cystic fibrosis. Medical conditions, such as strokes or spinal cord injuries, that affect the muscles and nerves that control breathing. Blood infection (sepsis). Inflammation of the pancreas (pancreatitis). A blood clot in the lungs (pulmonary embolism). A large-volume blood transfusion. Pryor. Near-drowning. Seizure. Smoke inhalation. Reaction to medicines. Alcohol or drug overdose. What increases the risk? This condition is more likely to develop in people who have: A blocked airway. Asthma. A condition or disease that damages or weakens the muscles, nerves, bones, or tissues that are involved in breathing. A serious infection. A health problem that blocks the unconscious reflex that is involved in breathing, such as hypothyroidism or sleep apnea. A lung injury or trauma. What are the signs or symptoms? Trouble breathing is the main symptom of acute respiratory failure. Symptoms may also include: Rapid breathing. Restlessness or anxiety. Skin, lips, or fingernails that appear blue (cyanosis). Rapid heart rate. Abnormal heart rhythms (arrhythmias). Confusion or changes in behavior. Tiredness or loss of energy. Feeling sleepy or having a loss of consciousness. How is this diagnosed? Your health care provider can diagnose acute respiratory failure with a medical history and physical exam. During the exam, your health care provider will listen to your heart and check for cracklingor wheezing sounds in your lungs. Your may also have tests to confirm the diagnosis and determine what is causing respiratory failure. These tests may include: Measuring the amount of oxygen in your blood (pulse oximetry). The measurement comes from a small device that is placed on your finger, earlobe, or toe. Other blood tests to measure blood gases and to look for signs of infection. Sampling your cerebral spinal fluid or tracheal fluid to check for infections. Chest X-ray to look for fluid in spaces that should be filled with air. Electrocardiogram (ECG) to look at the heart's electrical activity. How is this treated? Treatment for this condition usually takes places in a hospital intensive care unit (ICU). Treatment depends on what is causing the condition. It may include one or more treatments until your symptoms improve. Treatment may include: Supplemental oxygen. Extra oxygen is given through a tube in the nose, a face mask, or a ontiveros. A device such as a continuous positive airway pressure (CPAP) or bi-level positive airway pressure (BiPAP or BPAP) machine. This treatment uses mild air pressure to keep the airways open. A mask or other device will be placed over your nose or mouth. A tube that is connected to a motor will deliveroxygen through the mask. Ventilator. This treatment helps move air into and out of the lungs. This may be done with a bag and mask or a machine. For this treatment, a tube is placed in your windpipe (trachea) so air and oxygen can flow to the lungs. Extracorporeal membrane oxygenation (ECMO). This treatment temporarily takes over the function of the heart and lungs, supplying oxygen and removing carbon dioxide. ECMO gives the lungs a chance to recover. It may be used if a ventilator is not effective. Tracheostomy. This is a procedure that creates a hole in the neck to insert a breathing tube. Receiving fluids and medicines. Rocking the bed to help breathing. Follow these instructions at home: Take rzui-xza-juyxoql and prescription medicines only as told by your health care provider. Return to normal activities as told by your health care provider. Ask your health care provider what activities are safe for you. Keep all follow-up visits as told by your health care provider. This is important. How is this prevented? Treating infections and medical conditions that may lead to acute respiratory failure can help prevent the condition from developing. Contact a health care provider if: You have a fever. Your symptoms do not improve or they get worse. Get help right away if: You are having trouble breathing. You lose consciousness. Your have cyanosis or turn blue. You develop a rapid heart rate. You are confused. These symptoms may represent a serious problem that is an emergency. Do not wait to see if the symptoms will go away. Get medical help right away. Call your local emergency services (911 in the [place] Do not drive yourself to the hospital. This information is not intended to replace advice given to you by your health care provider. Make sure you discuss any questions you have with your health care provider. Document Released: 10/14/2014 Document Revised: 09/21/2018 Document Reviewed: 04/26/2017 [employer] Patient Education 2020 [employer] Additional Information VACCINATE! IT SAVES LIVES! Members of the community who have not yet received the COVID-19 vaccine and would like to receive it can visit one of [facility] vaccine clinics. There are many vaccine clinic locations within the [facility]. For locations and available times, please visit [email or web address] It is important to note that some COVID mobile vaccine clinics are held outdoors and may be canceled in rainy or stormy conditions. To learn more about pediatric vaccinations (ages 5-11), we invite you to visit the [facility] webpage. https://www.[employer].org/pages/7011-Gqpmb-Nmafquoswzy-Ohgpzgqkvm-Uwumj-Kdf stions.htmlTo learn more about the COVID-19 vaccine, we invite you to visit the CDC website for a list of frequently asked questions.https://www.cdc.gov/coronavirus/2019-ncov/vaccines/faq.html [facility] Patient Portal Access Instructions: Stay connected with your healthcare team and access your personal medical information anytime with the [facility] Patient Portal. Please follow the directions below to create your [facility] account: 1.Access the email account you provided upon registration to the hospital/physician office.2.Look for an invitation email from [facility].3.Open the email and access the invitation link: AcceptInvitation to [facility].4.Fill in the required lr to create your account. To access your account, visit [email or web address]. Click the blue button labeled Access Patient Portal and then log in with the username and password that you created in the steps above. You will be able to view your test results, lab results, a summary of your visits, upcoming appointments and more. There is also a convenient messaging option where you can send secure messages to your p rovider. In addition, you will have the ability to download any documents or summaries to your computer and/or send the information securely to a physician. Remember that your healthcare information is confidential, so carefully consider who you will allowto register on the [facility] Patient Portal for access to your information. You can also access the [facility] Patient Portal on the [facility] [employer]z. Simply click on Patient Portal and then log into your account. If you would like to receive a full copy of your medical records, please contact the [facility] Medical Records Department by calling [phone], Monday through Monday between 8 a.m. and 4:30 p.m. HOW TO SAFELY DISPOSE OF PRESCRIPTION MEDICATIONS Please use one of the following methods to safely dispose of your unused medications. 1.Use a drug disposal kit: the drug disposal pouch allows you to safely discard your old and unuseddrugs. Ask your nurse to give you one when you are discharged.2.Visit a local take-back location: Many local pharmacies and police departments have programs that collect old and unwanted prescriptiondrugs. Call your local pharmacy or go to http://[employer]/4T1La8c to find one close to you.3.Make use of household items: Use cat litter or old coffee grounds to dispose medications if other options arenot available. Mix your drugs with these household products, seal them in an airtight container andthrow it into the garbage. Call [facility]: [phone] to be sure your drugs can be disposed of in this way. Some medicines may require a different approach.4.Never flush your medications down the toilet. IF YOU HAVE BEEN PRESCRIBED AN OPIOID FOR PAIN If you have been prescribed an opioid (such as hydrocodone, oxycodone or morphine), it is critical to understand the possible side effects and risks of opioid pain medications. Even when taken as directed, opioids can have several side effects including: Tolerance, meaning you might need to take more of a medication for the same pain relief. Nausea, vomiting and/or constipation. Sleepiness, dizziness, dry mouth, confusion, depression or itching. Physical dependence, meaning you have withdrawal symptoms when a medication is stopped, can develop within a few days. KNOW YOUR RESPONSIBILITIES It is important to know exactly how much and how often to take the opioid pain medications you are prescribed. Never take opioids in higher amounts or more often than prescribed. Do not combine opioids with alcohol or other drugs that cause drowsiness, such as benzodiazepines, also known as benzos, including diazepam and alprazolam, muscle relaxants or sleep aids. Never sell or share prescription opioids. This is illegal. Store opioids in a secure place and out of reach of others (including children, family, friends and visitors). The last page of this document has been signed and retained as a CHART COPY. Signatures Patient Education Materials Acute Respiratory Failure, Adult Medication Leaflets My discharge plan and instructions have been reviewed and explained to me and I,ZABRINA HSUamina my current condition and have read and understand these discharge instructions. I have received a written copy of the plan/instructions. If I have questions, I am aware that I should contact my doctor. 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 Signature: Date/Time: Relationship to Patient: Witness Name/Signature: [facility] Note Discharge Instructions Thank you for allowing [facility] to assist you with your healthcare needs. The following is importantdischarge information regarding your hospital visit. Your Care Team ALFONSO OZUNA MANAGER MARITIME-PUTTY GLAZER What to do next Scheduled Follow-Up Appointments Appointment Type When With Where [facility]/06/[facility]24 03:30 PM EST NORA ROBERT [facility] Follow Up Appointments Follow Up with Mahnaz Moore for skilled care, report to [phone] When:Within 1-2 days Follow Up with ALFONSO OZUNA When:Within 1-2 days Where:[address] [place] [address] [phone] Business (1) The Following Activity and Diet Have Been Ordered for You Transfer of Care Activity - Ordered -- Activity As Tolerated, 11/09/24 10:00:00 EST Transfer of Care Diet - Ordered -- Type of Diet: Regular Diet, 11/09/24 10:00:00 EST The Following Equipment Has Been Ordered for You No qualifying data available. The Following Treatments Have Been Ordered for You Discharge Labs No qualifying data available. Discharge Radiology No qualifying data available. Other Therapies Transfer of Care OT - Ordered -- Reason for therapy: WEAKNESS, 11/09/24 10:00:00 EST Transfer of Care PT - Ordered -- Reason for therapy: WEAKNESS, 11/09/24 10:00:00 EST Post Acute Orders Transfer of Care Admission Level of Care - Ordered -- Level of Care SNF, 11/09/24 10:05:55 EST Transfer of Care Code Status - Ordered -- Full Code, Constant Order Transfer of Care Communication Order - Ordered -- Expect less than 30 day stay., 11/09/24 10:05:55 EST Transfer of Care Orders Electronically Signed By - Ordered -- 11/09/24 10:00:00 ALIS CHANEY EID MD Transfer of Care Prognosis - Ordered -- Fair, Patient Aware: Yes Transfer of Care Rehab Potential - Ordered -- Rehab potential fair, 11/09/24 10:00:43 EST Someone Will Contact You Regarding These Home Health Referrals No home referrals have been ordered for you. No one will call you. Allergies NKA Immunizations This Visit Given Vaccine Dateinfluenza virus vaccine, inactivated 11/09/2024 Medications Please ask your primary doctor or pharmacist before taking any other medication not listed, including over the counter drugs, herbal medications, vitamins and or supplements as they may interact withyour home medications. What How Much When Instructions Last Dose New clopidogrel (Plavix 75 mg oral tablet) 1 tab(s) by mouth Once a day Unchanged albuterol (albuterol MDI (90 mcg/ inh) CFC free inhalation aerosol) 1 puff(s) by inhalation Every 4 hours as needed for as needed for wheezing Unchanged aspirin (aspirin 81 mg oral delayed release tablet) 1 tab(s) by mouth Every day Unchanged carvedilol (Coreg 6.25 mg oral tablet) 1 tab(s) by mouth Two (2) times a day Unchanged ezetimibe (Zetia 10 mg oral tablet) 1 tab(s) by mouth Once a day Unchanged furosemide (Lasix 20 mg oral tablet) 1 tab(s) by mouth Two (2) times a day Unchanged losartan (losartan 50 mg oral tablet) 1 tab(s) by mouth Every day Unchanged montelukast (Singulair 10 mg oral tablet) 1 tab(s) by mouth Once a day Unchanged oxybutynin (oxybutynin 10 mg/ 24 hr oral tablet, extended release) 1 tab(s) by mouth Once a day Unchanged potassium chloride (Klor-Con M20 oral tablet, extended release) 1 tab(s) by mouth Two (2) times a day Unchanged rosuvastatin (Crestor 40 mg oral tablet) 1 tab(s) by mouth Every day Unchanged sacubitril-valsartan (Entresto 49 mg-51 mg oral tablet) 1 tab(s) by mouth Two (2) times a day Please take this list to your next doctor s visit. Bring all medications you take, including over the counter medications, herbals and other supplements with you to your doctor s visit. Patients and families are reminded to discard old lists and to update any records with all medication providers or retail pharmacies. Additional Information VACCINATE! IT SAVES LIVES! Members of the community who have not yet received the COVID-19 vaccine and would like to receive it can visit one of [facility] vaccine clinics. There are many vaccine clinic locations within the [facility]. For locations and available times, please visit [email or web address] It is important to note that some COVID mobile vaccine clinics are held outdoors and may be canceled in rainy or stormy conditions. To learn more about pediatric vaccinations (ages 5-11), we invite you to visit the [facility] webpage. https://www.[facility].org/pages/[email or web address]-Wpvvh-Yjbhdhymwit-Jvxluryfyd-Jcbud-Cre stions.htmlTo learn more about the COVID-19 vaccine, we invite you to visit the CDC website for a list of frequently asked questions.https://www.cdc.gov/coronavirus/2019-ncov/vaccines/faq.html [facility] Patient Portal Access Instructions: Stay connected with your healthcare team and access your personal medical information anytime with the [facility] Patient Portal. Please follow the directions below to create your [facility] account: 1.Access the email account you provided upon registration to the hospital/physician office.2.Look for an invitation email from [facility].3.Open the email and access the invitation link: AcceptInvitation to [facility].4.Fill in the required lr to create your account. To access your account, visit [email or web address]. Click the blue button labeled Access Patient Portal and then log in with the username and password that you created in the steps above. You will be able to view your test results, lab results, a summary of your visits, upcoming appointments and more. There is also a convenient messaging option where you can send secure messages to your p rovider. In addition, you will have the ability to download any documents or summaries to your computer and/or send the information securely to a physician. Remember that your healthcare information is confidential, so carefully consider who you will allowto register on the [facility] Patient Portal for access to your information. You can also access the [facility] Patient Portal on the [facility] benitez. Simply click on Patient Portal and then log into your account. If you would like to receive a full copy of your medical records, please contact the [facility] Medical Records Department by calling [phone], Monday through Monday between 8 a.m. and 4:30 p.m. HOW TO SAFELY DISPOSE OF PRESCRIPTION MEDICATIONS Please use one of the following methods to safely dispose of your unused medications. 1.Use a drug disposal kit: the drug disposal pouch allows you to safely discard your old and unuseddrugs. Ask your nurse to give you one when you are discharged.2.Visit a local take-back location: Many local pharmacies and police departments have programs that collect old and unwanted prescriptiondrugs. Call your local pharmacy or go to http://[employer].Femasys/2C2Ch4r to find one close to you.3.Make use of household items: Use cat litter or old coffee grounds to dispose medications if other options arenot available. Mix your drugs with these household products, seal them in an airtight container andthrow it into the garbage. Call [facility]: [phone] to be sure your drugs can be disposed of in this way. Some medicines may require a different approach.4.Never flush your medications down the toilet. IF YOU HAVE BEEN PRESCRIBED AN OPIOID FOR PAIN If you have been prescribed an opioid (such as hydrocodone, oxycodone or morphine), it is critical to understand the possible side effects and risks of opioid pain medications. Even when taken as directed, opioids can have several side effects including: Tolerance, meaning you might need to take more of a medication for the same pain relief. Nausea, vomiting and/or constipation. Sleepiness, dizziness, dry mouth, confusion, depression or itching. Physical dependence, meaning you have withdrawal symptoms when a medication is stopped, can develop within a few days. KNOW YOUR RESPONSIBILITIES It is important to know exactly how much and how often to take the opioid pain medications you are prescribed. Never take opioids in higher amounts or more often than prescribed. Do not combine opioids with alcohol or other drugs that cause drowsiness, such as benzodiazepines, also known as benzos, including diazepam and alprazolam, muscle relaxants or sleep aids. Never sell or share prescription opioids. This is illegal. Store opioids in a secure place and out of reach of others (including children, family, friends and visitors). The last page of this document has been signed and retained as a CHART COPY. Signatures Patient Education Materials Medication Leaflets My discharge plan and instructions have been reviewed and explained to me and I,ZABRINA HSUd my current condition and have read and understand these discharge instructions. I have received a written copy of the plan/instructions. If I have questions, I am aware that I should contact my doctor. 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 Signature: Date/Time: Relationship to Patient: Witness Name/Signature: Date/Time: [id number] Respiratory therapy Hospital Progress note Respiratory Therapy Evaluation Entered On: 11/09/2024 7:30 EST Performed On: 11/09/2024 7:30 EST by DESHAWN Hill Respiratory Therapy Evaluation Pulmonary Status : Current smoker Surgical Status : No surgery Chest X-Ray : Infiltrates or atelectasis in more than one lobe or rib fractures Respiratory Pattern (RT) : RR 21-25 BPM, Tachypnea Breath Sounds (RT) : Clear to auscultation Cough (RT) : Strong, non-productive Level of Activity : Ambulatory Mental Status : Alert, oriented and cooperative Respiratory Therapy Evaluation Score : 6 RT Evaluation Steps : Chart review completed, Assessment completed: RR, HR, Auscultation, Cough, Patient Interview completed Respiratory Evaluation Triage Score : (6-10) Freq: TIDRT & Albuterol Q2hRT prn RT Assessment [Frequency/Schedule] : Triage score 6-10, change frequency to TIDRT and Albuterol Q2hRT PRN per protocol DESHAWN Hill - 11/09/2024 7:30 EST Digitally Signed by DESHAWN Hill on 11/09/2024 07:30 AM [facility] [id number] Note Subjective: Patient seen for pneumonia versus pulmonary edema patient was examined and evaluated today, patient denies chest pain, shortness of breath continues to improve, patient was up in the chair, she is denying any nausea or vomiting, tolerating diet fairly well, feeling weak tired and fatigued. Vitals Signs(Last 24 hrs)__Last Charted Minimum Maximum Temp36.5(NOV 08 14:34)36.5(NOV 08 14:34)36.4(NOV 07 19:07) Heart Rate70(NOV 08 06:19)L 54(NOV 07 23:30)70(NOV 08 06:19) VEL560(NOV 08 14:34)L 87(NOV 08 11:03)H 198(NOV 08 06:34) DBP75(NOV 08 14:34)L 52(NOV 08 11:03)78(NOV 08 07:29) Physical examination: HEENT, is atraumatic normocephalic, pupils are equal, no pallor Neck supple no JVD Lungs diminished breath sounds on both bases, no wheezes, no rhonchi, no accessory muscle use Heart S1-S2 regular Abdomen soft nontender nondistended bowel sounds are present all 4 quadrants Lower extremities show +1 edema, no cyanosis, pulses palpable +2 bilaterally Skin showed no rash Neurological examination patient is awake alert and oriented 3, cranial nerves are grossly intact, no focal neurological defect could be appreciated Assessment and plan: 1. Acute over chronic toxic and hypercapnic respiratory failure 2. Possible pneumonia, completed the course of antibiotics. 3. Acute pulmonary edema. 4. Concerns of A-fib with RVR. 5. Possible sinus tachycardia with PACs. 6. Lactic acidosis, resolved. 7. Coronary artery disease with history of stent. 8. 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 9. COPD. 10. GERD. 11. Bipolar disorder. 12. Anxiety and depression. Plan: 1. Continue with IV Lasix, continue to monitor I's and O's. 2. Continue with heparin for DVT prophylaxis. 3. Continue to monitor patient clinically as well as her labs. 4. Continue with physical therapy and Occupational Therapy while in the hospital Patient understood her plan of care all questions were answered, all concerns were addressed, she declined my offer to call her family stating that she will update the family by herself. Level of Care Indication SD monitor (CHF exacerbation) DVT Prophylaxis Heparin SQ Maintenance IVF Indication NA / No maintenance IVF Indwelling Urinary Catheter Indication NA No indwelling catheter Anticipated Timeline of Discharge 24 hours Anticipated DC Disposition SNF Labs: Basic Metabolic Profile Glucose Level: 100 mg/dL (11/08/24 06:27:00) Sodium Level: 139 mEq/L (11/08/24 06:27:00) Potassium Level: 3.5 mEq/L (11/08/24 06:27:00) Chloride: 105 mEq/L (11/08/24 06:27:00) CO2: 27 mEq/L (11/08/24 06:27:00) BUN/Creatinine Ratio: 28.2 ratio High (11/08/24 06:27:00) Complete Blood Count WBC: 7.3 10^3/mcL (11/08/24 06:27:00) RBC: 4.02 10^6/mcL Low (11/08/24 06:27:00) Hgb: 12.1 G/dL (11/08/24 06:27:00) Hct: 36.1 % (11/08/24 06:27:00) MCV: 89.7 fL (11/08/24 06:27:00) MCH: 30 pg (11/08/24 06:27:00) MCHC: 33.5 G/dL (11/08/24 06:27:00) RDW: 14.1 % (11/08/24 06:27:00) Platelet: 402 10^3/mcL (11/08/24 06:27:00) MPV: 7.5 fL (11/08/24 06:27:00) Medications (14) Active Scheduled: (10) albuterol - ipratropium 2.5 mg-0.5 mg/3 mL Inhal Smiley UD 3 mL, Inhalation, q6hRT aspirin 81 mg Chewable 81 mg 1 tab(s), Oral, qDayM carvedilol 6.25 mg tablet 6.25 mg 1 tab(s), Oral, BIDM clopidogrel 75 mg Tablet 75 mg 1 tab(s), Oral, qDay ezetimibe 10 mg tablet 10 mg 1 tab(s), Oral, qDay furosemide 40 mg/4 mL vial 40 mg 4 mL, IV Push, qDay heparin 5,000 units/mL (1 mL) vial 5,000 unit(s) 1 mL, Subcutaneous, q8h influenza virus vaccine, inactivated adjuvanted HD PF trivalent Syringe UD 0.5 mL, Intramuscular, Vaccine-day 2 rosuvastatin 20 mg tablet 40 mg 2 tab(s), Oral, qHS sacubitril-valsartan 49-51mg oral tablet 1 tab(s), Oral, BID Continuous: (0) PRN: (4) acetaminophen 325 mg Tablet 650 mg 2 tab(s), Oral, q4h albuterol - ipratropium 2.5 mg-0.5 mg/3 mL Inhal Smiley UD 3 mL, Inhalation, q4hRT dextrose 50% Solution Disp syringe 50 mL 12.5 gram(s) 25 mL, IV Push, AsDirected ondansetron 2 mg/ 1 mL 2 mL INJ 4 mg 2 mL, IV Push, q4h Signature: Love Carter MD Digitally Signed by LOVE CARTER MD on 11/08/2024 03:14 PM [facility] [id number] Note Date of Service 11/07/23 Subjective This is ICU day #4 for Marcela, a 69-year-old female past medical history coronary artery disease status post stenting in the , stress-induced cardiomyopathy with recovered ejection fraction, hypertension, dyslipidemia, COPD, tobacco abuse, bipolar disorder, GERD, anxiety and depression who pres ented as transfer from [facility] with acute respiratory failure requiring intubation. Initial saturation on 4 L nasal cannula was 70%. Lactic acid was elevated at 4.6. She initially went to ER at [facility] with shortness of breath and wheezing. She has been intubated on a prior admission in August 2023 for similar symptoms. Patient was initially tachycardic in the 140s and hypertensive. Shewas started on Cardizem drip. Chest x-ray showed moderate CHF. She has been started on Rocephin as well as azithromycin and Cardizem drip as well as DuoNebs and Lasix. Over the past 24 hours she was monitored in the ICU after she self extubated. Overnight, she becameagitated and had to go on Precedex, now off. Objective Vitals and Measurements T: 36.4 C (Oral) TMIN: 36.3 C (Axillary) TMAX: 37.1 C (Oral) HR: 54 (Monitored) RR: 20 BP: 97/54 SpO2: 97% Intake and Output 7AM Yesterday to 7AM Today Intake and Output (Last 24 hours) Intake Oral Intake 1080.00 Administration Information 24.00 Output Urinary Catheter Output: 200.00 Stool Count 0.00 Urine Count 4.00 Total Summary Total Intake 1104.00 Total Output 200.00 Fluid Balance 904.00 Physical Exam General-no acute distress, she is alert HEENT-normocephalic, atraumatic, extraocular movements intact Pulmonary-diminished bilaterally, no wheeze Cardiovascular-regular, no appreciable murmurs, gallops or rubs Abdomen-soft, nontender, bowel sounds positive Extremities-no cyanosis, clubbing or edema Neurologic-nonfocal Weight Dosing Weight: 54.5 kg (11/04/24) Medications Medications (15) Active Scheduled: (10) albuterol - ipratropium 2.5 mg-0.5 mg/3 mL Inhal Smiley UD 3 mL, Inhalation, q6hRT aspirin 81 mg Chewable 81 mg 1 tab(s), Oral, qDayM carvedilol 6.25 mg tablet 6.25 mg 1 tab(s), Oral, BIDM clopidogrel 75 mg Tablet 75 mg 1 tab(s), Oral, qDay ezetimibe 10 mg tablet 10 mg 1 tab(s), Oral, qDay furosemide 40 mg/4 mL vial 40 mg 4 mL, IV Push, qDay heparin 5,000 units/mL (1 mL) vial 5,000 unit(s) 1 mL, Subcutaneous, q8h Pharmacy To Dose 1 EA, Miscellaneous, Daily rosuvastatin 20 mg tablet 40 mg 2 tab(s), Oral, qHS sacubitril-valsartan 49-51mg oral tablet 1 tab(s), Oral, BID Continuous: (1) dexmedetomidine 400 mcg [0.2 mcg/kg/hr] + Sodium Chloride 0.9% 96 mL 96 mL, Intravenous, 2.73 mL/hr PRN: (4) acetaminophen 325 mg Tablet 650 mg 2 tab(s), Oral, q4h albuterol - ipratropium 2.5 mg-0.5 mg/3 mL Inhal Smiley UD 3 mL, Inhalation, q2hRT dextrose 50% Solution Disp syringe 50 mL 12.5 gram(s) 25 mL, IV Push, AsDirected ondansetron 2 mg/ 1 mL 2 mL INJ 4 mg 2 mL, IV Push, q4h Lab Results 11/07 02:41 WBC: 9.3 Hgb: 11.2 L Hct: 33.8 L Platelet: 391 Neutrophil %: 73.3 Glucose Level: 108 Sodium Level: 138 Potassium Level: 3.6 BUN: 26.0 H Creatinine Lvl (s): 0.68 11/06 02:42 WBC: 9.4 Hgb: 10.6 L Hct: 30.7 L Platelet: 360 Neutrophil %: 68.6 Glucose Level: 89 Sodium Level: 139 Potassium Level: 3.0 L BUN: 29.0 H Creatinine Lvl (s): 0.93 11/05 23:29 Glucose Level: 88 Sodium Level: 140 Potassium Level: 3.0 L BUN: 30.0 H Creatinine Lvl (s): 0.85 EKG No qualifying data available. Assessment/Plan 1. Acute on chronic hypercapnic hypoxemic respiratory failure, now liberated from mechanical ventilatory support 2. Possible pneumonia versus pulmonary edema 3. New onset A-fib with RVR, resolved 4. Elevated D-dimer 5. Lactic acidosis 6. GI DVT prophylaxis Plan: 1. Continue nasal cannula, wean as tolerated 2. Completed a 5-day treatment course with Rocephin for pneumonia 3. Continue Lasix 40 mg IV daily 4. CTA negative for PE, Echocardiogram shows EF 50% with moderate to severe mitral regurgitation 5. CBC and BMP in morning 6. Continue Coreg, heart rate under better control Overall prognosis guarded. Total critical care time today 25 minutes. Stable for transfer out of ICU with ongoing follow-up by pulmonary Digitally Signed by EMILIO DERAS MD on 11/07/2024 11:10 AM [facility] [id number] Consult note Date of Service 11/05/2024 Reason for Consultation Pain in lower limb Referring Physician MICU History of Present Illness This is a 69-year-old female with past medical history significant for chronic smoking, insulin-dependent diabetes, coronary artery disease, cardiomyopathy who is currently admitted to the medical ICU for shortness of breath. She was a transfer from an outside hospital. She denies pain to the lowerextremities. She is a chronic smoker but denies claudication or rest pain symptoms. Podiatry is consulted regarding management of her digital nail deformities that are subsequently causing her pain. She denies any open wounds. Denies numbness burning tingling to the feet. Review of Systems Denies fevers chills nausea vomiting chest pain shortness of breath calf or thigh pain. Physical Exam Vitals and Measurements T: 36.8 C (Oral) TMIN: 36.6 C (Oral) TMAX: 37.2 C (Oral) HR: 72 (Monitored) RR: 18 BP: 154/67 SpO2:94% Weight Dosing Weight: 54.5 kg (11/04/24) DP and PT pulses are reduced, CFT within normal limits, minimal edema noted bilateral lower extremities. Skin temperature is warm to warm proximal to distal. Light touch sensation is intact. Diminished hair growth. Muscle strength is intact for dorsiflexion plantarflexion inversion eversion of the foot and ankle.Range of motion is intact in ankle joint distal without pain. Light touch sensation is intact. No gross motor deficits. Nails 1 bilateral are severely elongated and causing irritation to the second digit bilateral. No clinical signs of infection. No pus drainage. No fluctuance. No cellulitis. Lab Results 11/05 03:58 WBC: 11.5 H Hgb: 11.5 L Hct: 34.4 Platelet: 423 Neutrophil %: 75.9 H Glucose Level: 116 H Sodium Level: 139 Potassium Level: 4.6 BUN: 25.0 H Creatinine Lvl (s): 0.87 11/04 12:51 WBC: 17.2 H Hgb: 11.9 L Hct: 35.3 Platelet: 442 Neutrophil %: 93.3 H Glucose Level: 140 H Sodium Level: 142 Potassium Level: 3.0 L BUN: 17.0 Creatinine Lvl (s): 0.74 Assessment/Plan This is a 69-year-old female seen for evaluation regarding severe onychomycosis bilateral hallux nails. I discussed options with the patient. Will plan for routine nail trimming to reduce her pain. Patient is in agreement with plan. This could also be completed as outpatient. Thank you for the opportunity to to assist with the care of this patient. Problem List/Past Medical History Ongoing CAD in [place] artery Cardiomyopathy Procedure/Surgical History Echocardiogram: 09/04/23 Cardiac catheterization: 09/03/[address]: 09/02/23 6MWT - 6 minute walk test: 01/26/21 Pulmonary function test: 01/25/21 Duplex ultrasound of carotid artery: 01/06/17 Doppler ultrasound of renal artery: 12/27/16 Cardiac catheterization Medications Inpatient aspirin, 81 mg= 1 tab(s), Oral, qDayM carvedilol 6.25 mg oral tablet, 6.25 mg= 1 tab(s), Oral, BIDM cefTRIAXone, 2 gram(s)= 20 mL, IV Push (INT), qDay Dextrose, 25 gram(s)= 50 mL, IV Push, AsDirected, PRN DuoNeb, 3 mL, Inhalation, q6hRT DuoNeb, 3 mL, Inhalation, q2hRT, PRN ezetimibe, 10 mg= 1 tab(s), Oral, qDay heparin 5000 units/mL injection, 5000 unit(s)= 1 mL, Subcutaneous, q8h HumuLIN R, sliding scale insulin, Subcutaneous, q4h, PRN Insulin Regular for IV 100 unit(s) + NS Premix Diluent 100 mL Lasix, 40 mg= 4 mL, IV Push, BID losartan, 50 mg= 1 tab(s), Oral, qDay Plavix, 75 mg= 1 tab(s), Oral, qDay Protonix IV Push, 40 mg, IV Push, qDayAC rosuvastatin, 40 mg= 2 tab(s), Oral, qHS Tylenol, 650 mg= 2 tab(s), Oral, q4h, PRN Zofran, 4 mg= 2 mL, IV Push, q4h, PRN Home albuterol MDI (90 mcg/inh) CFC free inhalation aerosol, 1 puff(s), Inhalation, q4h, PRN, 3 refills aspirin 81 mg oral delayed release tablet, 81 mg= 1 tab(s), Oral, Daily cephalexin 500 mg oral capsule Coreg 6.25 mg oral tablet, 6.25 mg= 1 tab(s), Oral, BID, 3 refills dorzolamide 2% ophthalmic solution, 1 drop(s), Eyes, both, TID Entresto 49 mg-51 mg oral tablet, 1 tab(s), Oral, BID, 3 refills Klor-Con M20 oral tablet, extended release, 20 mEq= 1 tab(s), Oral, BID, 5 refills Lasix 20 mg oral tablet, See Instructions, 4 refills oxybutynin 5 mg/24 hours oral tablet, extended release, 5 mg= 1 tab(s), Oral, qDay Plavix 75 mg oral tablet, 75 mg= 1 tab(s), Oral, qDay, 3 refills rosuvastatin 20 mg oral tablet, 40 mg= 2 tab(s), Oral, qDay, 3 refills Trelegy Ellipta 100 mcg-62.5 mcg-25 mcg/inh inhalation powder, 1 puff(s), Inhalation, qDay, 3 refills Zetia 10 mg oral tablet, 10 mg= 1 tab(s), Oral, qDay, 1 refills Allergies NKA Social History Smoking Status - 06/20/2011 Patient smokes Alcohol Use: none., 09/28/2023 Nutrition/Health Caffeine intake amount: 3-4 cups per day., 09/28/2023 Substance Abuse Use: Past. Type: Marijuana., 01/22/2024 Tobacco Nicotine Use: 5-9 cigarettes (between 1/4 to 1/2 pack)/day in last 30 days, 10 or more cigarettes (1/2 pack or more)/day in last 30 days., 2024 Family History Cancer: Sister and Brother. Seizure disorder: Mother and Sister. Health Status Family Member(s) Immunizations pneumococcal 13-valent conjugate vaccine: 0.5 unknown unit (11/05/20) pneumococcal 23-valent vaccine(Pneumovax: 0.5 unknown unit (09/23/19) SARS-CoV-2 (COVID-19) mRNA-1273 vaccine: 0.5 unknown unit (10/11/21) Digitally Signed by JACQUELINE FAUSTIN DPM on 11/05/2024 05:02 PM [facility] [id number] Note* Exam Date Time Procedure Performing Provider Status 11/07/24 6:39 AM XR Chest 1 View GENARO NO MD; Auth (Verified) [id number] ORIGINAL EXAMINATION: ONE XRAY VIEW OF THE CHEST 11/07/2024 6:39 am COMPARISON: Chest x-ray on 11/06/2024 HISTORY: ORDERING SYSTEM PROVIDED HISTORY: Reason for Exam: Dyspnea FINDINGS: The heart size is stable. Diffuse bilateral lung infiltrates are predominantly interstitial and unchanged. Small bilateral pleural effusions are present with increased right pleural fluid. There is basilar consolidation associated with the pleural fluid. No pneumothorax is present. IMPRESSION: 1. Stable diffuse bilateral lung infiltrates. 2. Small bilateral pleural effusions with increased right pleural fluid. Interpreted by: Genaro No MD Preliminary Report By: Genaro No MD Electronically signed By Genaro No MD Dictated Date: 11/07/2024 6:53:02 AM Prelim Date: 11/07/2024 6:54:29 AM Sign Date: 11/07/2024 6:54:29 AM Ordering Provider: EMILIO REYES [facility] [id number] Note Date of Service 11/06/2024 Subjective This is ICU day #3 for Marcela, a 69-year-old female past medical history coronary artery disease status post stenting in the , stress-induced cardiomyopathy with recovered ejection fraction, hypertension, dyslipidemia, COPD, tobacco abuse, bipolar disorder, GERD, anxiety and depression who pres ented as transfer from [facility] with acute respiratory failure requiring intubation. Initial saturation on 4 L nasal cannula was 70%. Lactic acid was elevated at 4.6. She initially went to ER at [facility] with shortness of breath and wheezing. She has been intubated on a prior admission in August 2023 for similar symptoms. Patient was initially tachycardic in the 140s and hypertensive. Shewas started on Cardizem drip. Chest x-ray showed moderate CHF. She has been started on Rocephin as well as azithromycin and Cardizem drip as well as DuoNebs and Lasix. Over the past 24 hours she self extubated while on a CPAP trial. She was then placed on BiPAP to help with work of breathing and has since been weaned off. She is currently on nasal cannula today, upto a chair. Objective Vitals and Measurements T: 36.7 C (Oral) TMIN: 36.7 C (Oral) TMAX: 37.4 C (Oral) HR: 60 (Monitored) RR: 22 BP: 145/54 SpO2:92% Intake and Output 7AM Yesterday to 7AM Today Intake and Output (Last 24 hours) Intake Oral Intake 600.00 Administration Information 26.66 Output Urinary Catheter Output: 900.00 Stool Count 0.00 Urine Count 2.00 Total Summary Total Intake 626.66 Total Output 900.00 Fluid Balance -273.34 Physical Exam General-no acute distress, she is alert HEENT-normocephalic, atraumatic, extraocular movements intact Pulmonary-diminished bilaterally, no wheeze Cardiovascular-regular, no appreciable murmurs, gallops or rubs Abdomen-soft, nontender, bowel sounds positive Extremities-no cyanosis, clubbing or edema Neurologic-nonfocal Weight Dosing Weight: 54.5 kg (11/04/24) Medications Medications (18) Active Scheduled: (12) albuterol - ipratropium 2.5 mg-0.5 mg/3 mL Inhal Smiley UD 3 mL, Inhalation, q6hRT aspirin 81 mg Chewable 81 mg 1 tab(s), Oral, qDayM carvedilol 6.25 mg tablet 6.25 mg 1 tab(s), Oral, BIDM cefTRIAXone IVP syringe 2 gram(s) 20 mL, IV Push (INT), qDay clopidogrel 75 mg Tablet 75 mg 1 tab(s), Oral, qDay ezetimibe 10 mg tablet 10 mg 1 tab(s), Oral, qDay furosemide 40 mg/4 mL vial 40 mg 4 mL, IV Push, qDay heparin 5,000 units/mL (1 mL) vial 5,000 unit(s) 1 mL, Subcutaneous, q8h losartan 50 mg tablet 50 mg 1 tab(s), Oral, qDay pantoprazole 40 mg VIAL 40 mg, IV Push, qDayAC potassium bicarbonate -citric acid 25 mEq EFF tablet 50 mEq 2 tab(s), Oral, Once rosuvastatin 20 mg tablet 40 mg 2 tab(s), Oral, qHS Continuous: (1) insulin regular 100 unit(s) + NS Premix Diluent 100 mL 100 mL, Intravenous PRN: (5) acetaminophen 325 mg Tablet 650 mg 2 tab(s), Oral, q4h albuterol - ipratropium 2.5 mg-0.5 mg/3 mL Inhal Smiley UD 3 mL, Inhalation, q2hRT dextrose 50% Solution Disp syringe 50 mL 25 g 50 mL, IV Push, AsDirected insulin regular human recombinant 100 units/ml (10 mL) Solution sliding scale insulin, Subcutaneous, q4h ondansetron 2 mg/ 1 mL 2 mL INJ 4 mg 2 mL, IV Push, q4h Lab Results 11/06 02:42 WBC: 9.4 Hgb: 10.6 L Hct: 30.7 L Platelet: 360 Neutrophil %: 68.6 Glucose Level: 89 Sodium Level: 139 Potassium Level: 3.0 L BUN: 29.0 H Creatinine Lvl (s): 0.93 11/05 23:29 Glucose Level: 88 Sodium Level: 140 Potassium Level: 3.0 L BUN: 30.0 H Creatinine Lvl (s): 0.85 11/05 03:58 WBC: 11.5 H Hgb: 11.5 L Hct: 34.4 Platelet: 423 Neutrophil %: 75.9 H Glucose Level: 116 H Sodium Level: 139 Potassium Level: 4.6 BUN: 25.0 H Creatinine Lvl (s): 0.87 EKG No qualifying data available. Assessment/Plan 1. Acute on chronic hypercapnic hypoxemic respiratory failure, now liberated from mechanical ventilatory support 2. Possible pneumonia versus pulmonary edema 3. New onset A-fib with RVR, resolved 4. Elevated D-dimer 5. Lactic acidosis 6. GI DVT prophylaxis Plan: 1. Continue nasal cannula, wean as tolerated 2. Continue antibiotics for treatment of community-acquired pneumonia with Rocephin for total 5 days 3. Decrease Lasix to 40 mg IV daily 4. CTA negative for PE, Echocardiogram shows EF 50% with moderate to severe mitral regurgitation 5. CBC and BMP in morning 6. Continue Coreg, heart rate under better control Overall prognosis guarded. Total critical care time today 25 minutes. Stable for transfer out of ICU today with ongoing follow-up by pulmonary Digitally Signed by EMILIO DERAS MD on 11/06/2024 10:46 AM [facility] [id number] Note* Exam Date Time Procedure Performing Provider Status 11/06/24 6:28 AM XR Chest 1 View GENARO NO MD; Auth (Verified) [id number] ORIGINAL EXAMINATION: ONE XRAY VIEW OF THE CHEST11/06/2024 6:28 am COMPARISON: Chest radiograph 07/06/2025 HISTORY: ORDERING SYSTEM PROVIDED HISTORY: Reason for Exam: CHF FINDINGS: Interval removal of enteric tube. The cardiomediastinal silhouette is stable. Similar central vascular congestion and peribronchial cuffing. Similar diffuse interstitial prominence. Similar trace bilateral pleural effusions with overlying airspace opacification. No pneumothorax. IMPRESSION: Unchanged pulmonary edema and trace bilateral pleural effusions with overlying airspace opacification. I have personally reviewed the images of this examination, and agree with the resident's findings and interpretation. Interpreted by: Genaro No MD Preliminary Report By: Rosy Aggarwal Electronically signed By Genaro No MD Dictated Date: 11/06/2024 6:32:14 AM Prelim Date: 11/06/2024 6:34:04 AM Sign Date: 11/06/2024 6:39:04 AM Ordering Provider: EMILIO REYES [facility] [id number] Consult note Date of Service 11/05/2024 Reason for Consultation Pain in lower limb Referring Physician MICU History of Present Illness This is a 69-year-old female with past medical history significant for chronic smoking, insulin-dependent diabetes, coronary artery disease, cardiomyopathy who is currently admitted to the medical ICU for shortness of breath. She was a transfer from an outside hospital. She denies pain to the lowerextremities. She is a chronic smoker but denies claudication or rest pain symptoms. Podiatry is consulted regarding management of her digital nail deformities that are subsequently causing her pain. She denies any open wounds. Denies numbness burning tingling to the feet. Review of Systems Denies fevers chills nausea vomiting chest pain shortness of breath calf or thigh pain. Physical Exam Vitals and Measurements T: 36.8 C (Oral) TMIN: 36.6 C (Oral) TMAX: 37.2 C (Oral) HR: 72 (Monitored) RR: 18 BP: 154/67 SpO2:94% Weight Dosing Weight: 54.5 kg (11/04/24) DP and PT pulses are reduced, CFT within normal limits, minimal edema noted bilateral lower extremities. Skin temperature is warm to warm proximal to distal. Light touch sensation is intact. Diminished hair growth. Muscle strength is intact for dorsiflexion plantarflexion inversion eversion of the foot and ankle.Range of motion is intact in ankle joint distal without pain. Light touch sensation is intact. No gross motor deficits. Nails 1 bilateral are severely elongated and causing irritation to the second digit bilateral. No clinical signs of infection. No pus drainage. No fluctuance. No cellulitis. Lab Results 11/05 03:58 WBC: 11.5 H Hgb: 11.5 L Hct: 34.4 Platelet: 423 Neutrophil %: 75.9 H Glucose Level: 116 H Sodium Level: 139 Potassium Level: 4.6 BUN: 25.0 H Creatinine Lvl (s): 0.87 11/04 12:51 WBC: 17.2 H Hgb: 11.9 L Hct: 35.3 Platelet: 442 Neutrophil %: 93.3 H Glucose Level: 140 H Sodium Level: 142 Potassium Level: 3.0 L BUN: 17.0 Creatinine Lvl (s): 0.74 Assessment/Plan This is a 69-year-old female seen for evaluation regarding severe onychomycosis bilateral hallux nails. I discussed options with the patient. Will plan for routine nail trimming to reduce her pain. Patient is in agreement with plan. This could also be completed as outpatient. Thank you for the opportunity to to assist with the care of this patient. Problem List/Past Medical History Ongoing CAD in [place] artery Cardiomyopathy Procedure/Surgical History Echocardiogram: 09/04/23 Cardiac catheterization: 09/03/[address]: 09/02/23 6MWT - 6 minute walk test: 01/26/21 Pulmonary function test: 01/25/21 Duplex ultrasound of carotid artery: 01/06/17 Doppler ultrasound of renal artery: 12/27/16 Cardiac catheterization Medications Inpatient aspirin, 81 mg= 1 tab(s), Oral, qDayM carvedilol 6.25 mg oral tablet, 6.25 mg= 1 tab(s), Oral, BIDM cefTRIAXone, 2 gram(s)= 20 mL, IV Push (INT), qDay Dextrose, 25 gram(s)= 50 mL, IV Push, AsDirected, PRN DuoNeb, 3 mL, Inhalation, q6hRT DuoNeb, 3 mL, Inhalation, q2hRT, PRN ezetimibe, 10 mg= 1 tab(s), Oral, qDay heparin 5000 units/mL injection, 5000 unit(s)= 1 mL, Subcutaneous, q8h HumuLIN R, sliding scale insulin, Subcutaneous, q4h, PRN Insulin Regular for IV 100 unit(s) + NS Premix Diluent 100 mL Lasix, 40 mg= 4 mL, IV Push, BID losartan, 50 mg= 1 tab(s), Oral, qDay Plavix, 75 mg= 1 tab(s), Oral, qDay Protonix IV Push, 40 mg, IV Push, qDayAC rosuvastatin, 40 mg= 2 tab(s), Oral, qHS Tylenol, 650 mg= 2 tab(s), Oral, q4h, PRN Zofran, 4 mg= 2 mL, IV Push, q4h, PRN Home albuterol MDI (90 mcg/inh) CFC free inhalation aerosol, 1 puff(s), Inhalation, q4h, PRN, 3 refills aspirin 81 mg oral delayed release tablet, 81 mg= 1 tab(s), Oral, Daily cephalexin 500 mg oral capsule Coreg 6.25 mg oral tablet, 6.25 mg= 1 tab(s), Oral, BID, 3 refills dorzolamide 2% ophthalmic solution, 1 drop(s), Eyes, both, TID Entresto 49 mg-51 mg oral tablet, 1 tab(s), Oral, BID, 3 refills Klor-Con M20 oral tablet, extended release, 20 mEq= 1 tab(s), Oral, BID, 5 refills Lasix 20 mg oral tablet, See Instructions, 4 refills oxybutynin 5 mg/24 hours oral tablet, extended release, 5 mg= 1 tab(s), Oral, qDay Plavix 75 mg oral tablet, 75 mg= 1 tab(s), Oral, qDay, 3 refills rosuvastatin 20 mg oral tablet, 40 mg= 2 tab(s), Oral, qDay, 3 refills Trelegy Ellipta 100 mcg-62.5 mcg-25 mcg/inh inhalation powder, 1 puff(s), Inhalation, qDay, 3 refills Zetia 10 mg oral tablet, 10 mg= 1 tab(s), Oral, qDay, 1 refills Allergies NKA Social History Smoking Status - 06/20/2011 Patient smokes Alcohol Use: none., 09/28/2023 Nutrition/Health Caffeine intake amount: 3-4 cups per day., 09/28/2023 Substance Abuse Use: Past. Type: Marijuana., 01/22/2024 Tobacco Nicotine Use: 5-9 cigarettes (between 1/4 to 1/2 pack)/day in last 30 days, 10 or more cigarettes (1/2 pack or more)/day in last 30 days., 2024 Family History Cancer: Sister and Brother. Seizure disorder: Mother and Sister. 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 Initial saturation on 4 L nasal cannula was 70%. Lactic acid was elevated at 4.6. She initially went to ER at [facility] with shortness of breath and wheezing. She has been intubated on a prior admission in August 2023 for similar symptoms. Patient was initially tachycardic in the 140s and hypertensive. Shewas started on Cardizem drip. Chest x-ray showed moderate CHF. She has been started on Rocephin as well as azithromycin and Cardizem drip as well as DuoNebs and Lasix. This morning she was on a CPAP trial however she self extubated and was subsequently placed on BiPAP 15/8 with 40% FiO2 to help with work of breathing. Objective Vitals and Measurements T: 37.2 C (Oral) TMIN: 36.4 C (Oral) TMAX: 37.2 C (Oral) HR: 77 (Monitored) RR: 23 BP: 177/96 SpO2:98% Intake and Output 7AM Yesterday to 7AM Today Intake and Output (Last 24 hours) Intake Enteral Tube Flush: 40.00 Intra-Op Crystalloid 118.00 Administration Information 220.00 Oral Intake 0.00 Output Urinary Catheter Output: 1250.00 Stool Count 2.00 Total Summary Total Intake 378.00 Total Output 1250.00 Fluid Balance -872.00 Physical Exam General-no acute distress, she is drowsy but does arouse HEENT-normocephalic, atraumatic, BiPAP mask in place Pulmonary-diminished bilaterally, no wheeze Cardiovascular-regular, no appreciable murmurs, gallops or rubs Abdomen-soft, nontender, bowel sounds positive Extremities-no cyanosis, clubbing or edema Neurologic-nonfocal Weight Dosing Weight: 54.5 kg (11/04/24) Medications Medications (17) Active Scheduled: (11) albuterol - ipratropium 2.5 mg-0.5 mg/3 mL Inhal Smiley UD 3 mL, Inhalation, q6hRT aspirin 81 mg Chewable 81 mg 1 tab(s), Oral, qDayM carvedilol 6.25 mg tablet 6.25 mg 1 tab(s), Oral, BIDM cefTRIAXone IVP syringe 2 gram(s) 20 mL, IV Push (INT), qDay clopidogrel 75 mg Tablet 75 mg 1 tab(s), Oral, qDay ezetimibe 10 mg tablet 10 mg 1 tab(s), Oral, qDay furosemide 40 mg/4 mL vial 40 mg 4 mL, IV Push, BID heparin 5,000 units/mL (1 mL) vial 5,000 unit(s) 1 mL, Subcutaneous, q8h losartan 50 mg tablet 50 mg 1 tab(s), Oral, qDay pantoprazole 40 mg VIAL 40 mg, IV Push, qDayAC rosuvastatin 20 mg tablet 40 mg 2 tab(s), Oral, qHS Continuous: (1) insulin regular 100 unit(s) + NS Premix Diluent 100 mL 100 mL, Intravenous PRN: (5) acetaminophen 325 mg Tablet 650 mg 2 tab(s), Oral, q4h albuterol - ipratropium 2.5 mg-0.5 mg/3 mL Inhal Smiley UD 3 mL, Inhalation, q2hRT dextrose 50% Solution Disp syringe 50 mL 25 g 50 mL, IV Push, AsDirected insulin regular human recombinant 100 units/ml (10 mL) Solution sliding scale insulin, Subcutaneous, q4h ondansetron 2 mg/ 1 mL 2 mL INJ 4 mg 2 mL, IV Push, q4h Lab Results 11/05 03:58 WBC: 11.5 H Hgb: 11.5 L Hct: 34.4 Platelet: 423 Neutrophil %: 75.9 H Glucose Level: 116 H Sodium Level: 139 Potassium Level: 4.6 BUN: 25.0 H Creatinine Lvl (s): 0.87 11/04 12:51 WBC: 17.2 H Hgb: 11.9 L Hct: 35.3 Platelet: 442 Neutrophil %: 93.3 H Glucose Level: 140 H Sodium Level: 142 Potassium Level: 3.0 L BUN: 17.0 Creatinine Lvl (s): 0.74 EKG No qualifying data available. Assessment/Plan 1. Acute on chronic hypercapnic hypoxemic respiratory failure, mechanical ventilatory support 2. Possible pneumonia versus pulmonary edema 3. New onset A-fib with RVR, resolved 4. Elevated D-dimer 5. Lactic acidosis 6. GI DVT prophylaxis Plan: 1. Has done well thus far following self extubation. Continue BiPAP 15/8 for now wean as tolerated. 2. Continue antibiotics for treatment of community-acquired pneumonia with Rocephin and azithromycin. Follow-up cultures 3. Give Lasix 40 mg IV x 1 now 4. CTA negative for PE, check transthoracic echocardiogram 5. CBC and BMP in morning 6. Add labetalol as she does take Coreg at home until able to swallow Overall prognosis guarded. Total critical care time today 35 minutes. Low threshold for reintubation if worsens Digitally Signed by EMILIO DERAS MD on 11/05/2024 01:07 PM [facility] [id number] Note* Exam Date Time Procedure Performing Provider Status 11/05/24 10:45 AM Echocardiogram, Adult - CV MARY BERNAL MD; Auth (Verified) [facility] [id number] Note* Exam Date Time Procedure Performing Provider Status 11/05/24 6:27 AM XR Chest 1 View GENARO ON MD; Auth (Verified) [id number] ORIGINAL EXAMINATION: ONE XRAY VIEW OF THE CHEST11/05/2024 6:27 am COMPARISON: Chest radiograph and CTA chest 11/04/2024 HISTORY: ORDERING SYSTEM PROVIDED HISTORY: Reason for Exam: intubated FINDINGS: Similar position of the endotracheal tube and partially imaged enteric tube. The cardiomediastinal silhouette is stable. Central vascular congestion and peribronchial cuffing. Diffuse interstitial prominence, similar to the prior exam. Upper lung emphysematous changes. Small bilateral pleural effusions are unchanged. No pneumothorax. IMPRESSION: Findings above most consistent with stable pulmonary edema. I have personally reviewed the images of this examination, and agree with the resident's findings and interpretation. Interpreted by: Genaro No MD Preliminary Report By: Rosy Aggarwal Electronically signed By Genaro No MD Dictated Date: 11/05/2024 6:29:52 AM Prelim Date: 11/05/2024 6:32:42 AM Sign Date: 11/05/2024 6:36:29 AM Ordering Provider: VANDANA DOS SANTOS [facility] [id number] Note* Exam Date Time Procedure Performing Provider Status 11/04/24 8:[address] Angiography Chest w/ Contrast BELLO THURMAN MD; Auth (Verified) [id number] ORIGINAL EXAMINATION: CTA OF THE CHEST 11/04/2024 8:02 pm TECHNIQUE: CTA of the chest was performed after the administration of intravenous contrast. Multiplanar reformatted images are provided for review. MIP images are provided for review. Automated exposure control, iterative reconstruction, and/or weight based adjustment of the mA/kV was utilized to reduce the radiation dose to as low as reasonably achievable. COMPARISON: Same day portable chest HISTORY: ORDERING SYSTEM PROVIDED HISTORY: Reason for Exam: SOB, ACUTE RESP FAILURE, ELEVATED D DIMER. SOB, age adjusted d dimer high FINDINGS: Motion artifact obscures some evaluation. Pulmonary Arteries: Pulmonary arteries are adequately opacified for evaluation to the level of the segmental arteries. A few subsegmental arteries are difficult to evaluate. No evidence of intraluminal filling defect to suggest pulmonary embolism. Main pulmonary artery is borderline enlarged measuring 2.9 cm which can be seen with pulmonary hypertension. Mediastinum: There are suspected numerous borderline enlarged mediastinal and right hilar lymph nodes which are likely hyperplastic/reactive although this is incompletely assessed secondary to bolus timing. The heart is borderline enlarged in size without pericardial effusion. Biatrial enlargement. Coronary artery atherosclerotic calcifications/stents.. There is no acute abnormality of the atherosclerotic thoracic aorta. Lungs/pleura: The endotracheal tube terminates approximately 4.5 cm above the steve. The lungs demonstrate severe emphysematous changes. There are small bilateral pleural effusions with adjacent atelectasis/consolidation. Bilateral lower lobe predominant bronchial wall thickening with mucous plugging. Areas of interlobular septal thickening are noted. Scattered calcified granulomas. Ground-glass and consolidative opacities are seen along the posterolateral aspect of the right upper lobe (2:100), which may represent a superimposed infectious/inflammatory process versus layering pleural fluid. Upper Abdomen: Reflux of contrast within the IVC and hepatic veins are noted. Asymmetric atrophy of the right kidney calcified splenic granuloma. An enteric tube is seen coursing beyond the gastroesophageal junction terminating beyond the inferior field of view. Contrast excretion is seen within the left renal collecting systems. Soft Tissues/Bones: Multilevel degenerative changes of the spine, with moderate to severe bony spinal canal stenosis at T9-T10. Severe degenerative changes of the bilateral shoulders. IMPRESSION: No evidence of pulmonary embolism to the level of the segmental pulmonary arteries. Support devices as above. Constellation of findings suggesting pulmonary congestion/edema. A superimposed infectious/inflammatory process is difficult to exclude. Small bilateral pleural effusions with adjacent atelectasis/consolidation. Findings suggesting right ventricular heart dysfunction. Severe underlying emphysema. Moderate to severe bony spinal canal stenosis at T9-T10. If symptomatic consider MRI. I have personally reviewed the images of this examination and have edited the resident's findings and interpretation. Interpreted by: Bello Thurman Preliminary Report By: Bruce Saleh Electronically signed By Bello Thurman Dictated Date: 11/04/2024 8:03:57 PM Prelim Date: 11/04/2024 8:13:05 PM Sign Date: 11/04/2024 8:33:11 PM Ordering Provider: KAYLA RYAN [facility] [id number] Note. MICRO - Microbiology PROCEDURE: Streptococcus Pneumoniae Urine Antig [^1 *1] SOURCE: Urine, Clean Catch BODY SITE: COLLECTED DATE/TIME: 11/04/2024 18:06 EST RECEIVED DATE/TIME: 11/04/2024 18:21 EST START DATE/TIME: 11/04/2024 18:21 EST FREE TEXT SOURCE: FINAL REPORTS Final Report [] Verified Date/Time/Personnel: 11/04/2024 19:11 EST Presumptive negative for pneumococcal pneumonia, suggesting no current or recent pneumococcal infection. Infection due to Strep pneumoniae cannot be ruled out since the antigen present in the sample may be below the detection limit of the test. Interpretive Data ^1: Streptococcus Pneumoniae Urine Antig This test has not been evaluated on patients taking antibiotics for greater than 24 hours or on patients who have recently completed an antibiotic regimen. The accuracy of this test has not been proven in young children. Performing Locations *1: This test was performed at: [address]01-13-2025 Note. MICRO - Microbiology PROCEDURE: Legionella Urine Ag [*1] SOURCE: Urine BODY SITE: COLLECTED DATE/TIME: 11/04/2024 18:06 EST RECEIVED DATE/TIME: 11/04/2024 18:21 EST START DATE/TIME: 11/04/2024 18:21 EST FREE TEXT SOURCE: FINAL REPORTS Final Report [] Verified Date/Time/Personnel: 11/04/2024 19:11 EST Presumptive negative for L. pneumophila serogroup 1 antigen in urine, suggesting no recent or current infection. Legionnaire's disease cannot be ruled out since other serogroups and species may also cause disease. Performing Locations *1: This test was performed at: [address] [id number] History and physical note Date of Service 11/04/2023 Chief Complaint breathlessnessx1 day History of Present Illness Patient is a 69 year old female who presents to [facility] s a transfer from [facility] on 11/04/2024 for concerns of breathlessness x 1 day Past medical history: CAD s/p PCI: RCA-1990s, recent left heart cath for NSTEMI: Moderate disease, stress-induced cardiomyopathy, severe disease in distal LAD and OM1: Medically managed on Aspirin, plavix, TTE: 12/2023: 65%, HFrEF with recovered EF: on Entresto, Coreg, Lasix every other day, HTN, HLD COPD, bipolar disorder, and tobacco use, GERD, anxiety, pression, history of suicide attempt: 2010 To note, patient is currently intubated and sedated. All history obtained from patient documentation that was sent from [facility]. Per documentation, appears that patient was apparently normal until early this morning when she began to have episodes of breathlessness, insidious onset, gradually increasing, associated with nonproductive cough, audible wheezing, generalized weakness,palpitations, with breathlessness worsening onexertion. Has had similar episodes in the past and has required admission to the MICU most recentlyin August 2023 when she was intubated. Based on documentation, patient did not endorse any calf pain, fevers, diaphoresis, sputum production or chest pain. On arrival, she appeared to be talking in single words, with oxygen muscle usage, appearing visibly breathless, with examination findings revealing bilateral expiratory wheezing. Given increasing oxygen requirements, patient was subsequently intubated after discussion with patient's over the phone, Amdrigal's was placed as well. While in the ER at [facility], patient was also found to have an irregularly irregular rhythm and was also tachycardic all the way up to 143 bpm.For this purpose as well as elevated blood pressures, patient was given Cardizem loading as well asCardizem drip. On the way via the ambulance to [facility], patient converted and is now in normal sinus rhythm. Roughly at about 10:30 AM this morning. While at [facility] preliminary vitals, Lab work, radiological tests showed: BP: 235/135, HR: 110, RR: 36 seconds/min, SpO2: 70% at 4 L/min, temperature: 98.1 Fahrenheit Hb/WBC/PC: 11.9/14.6/608 Lymphocyte: 6.4 (lymphocytic predominance) NA/K/CL: 140/2.6/100 BUN/creat: 15/1.22. AST/ALT/ALP: 41/39/99 Limited panel: Negative Lactate: 4.6 Troponin high-sensitivity: 27.6 D-dimer: 1795 EKG: A-fib with RVR: With heart rates up to 111-141bpm UA: Negative for infection CXR: Moderate congestive heart failure present, severe hyperinflation present, consistent with COPD. ABG: pH/pCO2/pO2/HCO3: 7.12/91.5/105/ 29.7 She received Rocephin 2 g IV x 1 azithromycin 500 x 1, Cardizem 15 mg IV x 1, Cardizem drip at 5 mg/h, albuterol 2.5 mg x 1, DuoNeb x 1, Lasix 40 IV x 2 Patient is now being admitted to MICU for further management. Review of Systems acute care caveat applies. Physical Exam Vitals and Measurements T: 36.5 C (Oral) HR: 85 (Monitored) RR: 24 BP: 150/116 SpO2: 100% No qualifying data available. General Appearance: Appears to be stable and in no acute distress Head: Atraumatic and normocephalic EENT: EOMI, PERRLA, no oropharyngeal erythema, no tonsillar exudates, no conjunctival injection. sclera anicteric. Neck: No thyromegaly, no cervical lymphadenopathy, trachea midline Cardiac: S1 and S2 normal. RRR. No murmurs, rubs, or gallops. No JVD. No hepatojugular reflex. Bilateral lower lobe crackles in inspiratory phase. Lungs: Good air entry bilaterally. No increased work for breathing. No wheezes, rhonchi, or rales. Abdomen: Soft, nontender, nondistended. Normoactive bowel sounds. No rebound or guarding. Negative Schaefer's sign. No hepatosplenomegaly. Musculoskeletal: Full range of motion upper and lower extremities. No CVA tenderness. Extremities: No lower extremity pitting edema. 2+ radial and pedal pulses bilaterally. Neurological: CN II through XII grossly intact. 5/5 strength in upper and lower extremities. No asterixis or clonus. Skin: No abrasions, scars, or hematomas on visible skin. No cyanosis. No purulent discharge. Onychomyoctic toe nails Psychiatric: alert and oriented, well groomed, euthymic. cooperative Lab Results No 36 Hour Lab Data Imaging Results and Diagnostics XR Chest 1 View Result Date: November 04, 2024 Verified By: ARANZA REDDY MD CLINICAL STATEMENT: IMPRESSION: Interval placement of an endotracheal tube with tip visualized approximately5.6 cm fromthe level of the steve. Nasogastric tube has been placedcoursing past the level of diaphragm with side hole in the level of thedistal gastric body. Lung hyperinflation. Stable appearance of the cardi omediastinal silhouette.Unchanged diffuse interstitial and alveolar pattern in the bilateral lungswhich may be related to diffuse edema versus a diffuse interstitialinfectious or inflammatory process. Mild blunting of the bilateralcostophrenic angles suggestive of small bilateral pleural effusions. Nopneumothorax. Severe right glenohumeral joint degenerative change. XR Abdomen AP Result Date: November 04, 2024 Verified By: ARANZA REDDY MD CLINICAL STATEMENT: IMPRESSION: Interval placement of an endotracheal tube with tip visualized approximately5.6 cm fromthe level of the steve. Nasogastric tube has been placedcoursing past the level of diaphragm with side hole in the level of thedistal gastric body. Lung hyperinflation. Stable appearance of the cardi omediastinal silhouette.Unchanged diffuse interstitial and alveolar pattern in the bilateral lungswhich may be related to diffuse edema versus a diffuse interstitialinfectious or inflammatory process. Mild blunting of the bilateralcostophrenic angles suggestive of small bilateral pleural effusions. Nopneumothorax. Severe right glenohumeral joint degenerative change. Assessment/Plan Acute hypoxic and hypercapnic respiratory failure on MV Sepsis 2/2 Pneumonia? vs Possible acute systolic congestive heart failure (with evidence of pulm edema) vs Acute exacerbation of COPD, likely emphysema New onset A-fib and RVR-resolved Leucocytosis:14.6 Elevated D-Dimer: 1795(age adjusted) SANTO: 1.22 Lactic acidosis Normocytic anemia with thrombocytosis. DVT prophylaxis Code status Past medical history: CAD s/p PCI: RCA-1990s, recent left heart cath for NSTEMI: Moderate disease, stress-induced cardiomyopathy, severe disease in distal LAD and OM1: Medically managed on Aspirin, plavix, TTE: 12/2023: 65%, HFrEF with recovered EF: on Entresto, Coreg, Lasix every other day, HTN, HLD COPD, bipolar disorder, and tobacco use, GERD, anxiety, pression, history of suicide attempt: 2010 Plan -Admit to ICU. -Continue mechanical ventilation and sedation protocols. -Obtain imaging reads from hospital. -For the time being, we will continue antibiotics with Rocephin and azithromycin. -Will collect blood cultures, sputum cultures, send atypical organism panel. -Will obtain a lactic on this patient. -Patient did already receive some diuretics while at .Will check IVC as well in order to assess fluid status. Repeat NT proBNP. -Resume home diuretics. -Elevated D-dimer noted. Age-adjusted does establish possible VTE. Will order a CT PE if not already done at . -HBW with bolus if positive. -For A-fib, patient is now in normal sinus rhythm. Could have likely been secondary to respiratory abnormalities. Continue home coreg. -Iron panel in view of normocytic anemia with thrombocytosis. -Podiatry consult for onychomycosis of toe nails. Diet: N.p.o. DVt prophylaxis: Heparin subcu for the time being Code status: Full code (to be discussed with family/) Case discussed with Dr. Deras. Please see addendum for any change in management. Problem List/Past Medical History Ongoing CAD in [place] artery Cardiomyopathy Procedure/Surgical History Echocardiogram: 09/04/23 Cardiac catheterization: 09/03/[address]: 09/02/23 6MWT - 6 minute walk test: 01/26/21 Pulmonary function test: 01/25/21 Duplex ultrasound of carotid artery: 01/06/17 Doppler ultrasound of renal artery: 12/27/16 Cardiac catheterization Medications Home Medications (13) Active albuterol MDI (90 mcg/inh) C free inhalation aerosol 1 puff(s), PRN, Inhalation, q4h aspirin 81 mg oral delayed release tablet 81 mg = 1 tab(s), Oral, Daily cephalexin 500 mg oral capsule Coreg 6.25 mg oral tablet 6.25 mg = 1 tab(s), Oral, BID dorzolamide 2% ophthalmic solution 1 drop(s), Eyes, both, TID Entresto 49 mg-51 mg oral tablet 1 tab(s), Oral, BID Klor-Con M20 oral tablet, extended release 20 mEq = 1 tab(s), Oral, BID Lasix 20 mg oral tablet See Instructions oxybutynin 5 mg/24 hours oral tablet, extended release 5 mg = 1 tab(s), Oral, qDay Plavix 75 mg oral tablet 75 mg = 1 tab(s), Oral, qDay rosuvastatin 20 mg oral tablet 40 mg = 2 tab(s), Oral, qDay Trelegy Ellipta 100 mcg-62.5 mcg-25 mcg/inh inhalation powder 1 puff(s), Inhalation, qDay Zetia 10 mg oral tablet 10 mg = 1 tab(s), Oral, qDay Allergies NKA Social History Smoking Status - 06/20/2011 Patient smokes Alcohol Use: none., 09/28/2023 Nutrition/Health Caffeine intake amount: 3-4 cups per day., 09/28/2023 Substance Abuse Use: Past. Type: Marijuana., 01/22/2024 Tobacco Nicotine Use: 5-9 cigarettes (between 1/4 to 1/2 pack)/day in last 30 days, 10 or more cigarettes (1/2 pack or more)/day in last 30 days., 2024 Family History Cancer: Sister and Brother. Seizure disorder: Mother and Sister. Health Status Family Member(s) Immunizations No qualifying data available. Code Status No qualifying data available. Digitally Signed by KAYLA RYAN MD on 11/04/2024 03:48 PM [facility] [id number] Evaluation + Plan noteExtracted from: Title:History and Physical Author:MILES RYAN MD Date:11/04/24 Acute hypoxic and hypercapni c respiratory failure on MV Sepsis 2/2 Pneumonia? vs Possible acute systolic congestive heart failure (with evidence of pulm edema) vs Acute exacerbation of COPD, likely emphysema New onset A-fib and RVR-resolved Leucocytosis:14.6 Elevated D-Dimer: 1795(age adjusted) SANTO: 1.22 Lactic acidosis Normocytic anemia with thrombocytosis. DVT prophylaxis Code status Past medical history: CAD s/p PCI: RCA-, recent left heart cath for NSTEMI: Moderate disease, stress-induced cardiomyopathy, severe disease in distal LAD and OM1: Medically managed on Aspirin, plavix, TTE: 12/2023: 65%, HFrEF with recovered EF: on Entresto, Coreg, Lasix every other day, HTN, HLD COPD, bipolar disorder, and tobacco use, GERD, anxiety, pression, history of suicide attempt: 2010 Plan -Admit to ICU. -Continue mechanical ventilation and sedation protocols. -Obtain imaging reads from [facility]. -For the time being, we will continue antibiotics with Rocephin and azithromycin. -Will collect blood cultures, sputum cultures, send atypical organism panel. -Will obtain a lactic on this patient. -Patient did already receive some diuretics while at .Will check IVC as well in order to assess fluid status. Repeat NT proBNP. -Resume home diuretics. -Elevated D-dimer noted. Age-adjusted does establish possible VTE. Will order a CT PE if not already done at . -HBW with bolus if positive. -For A-fib, patient is now in normal sinus rhythm. Could have likely been secondary to respiratory abnormalities. Continue home coreg. -Iron panel in view of normocytic anemia with thrombocytosis. -Podiatry consult for onychomycosis of toe nails. Diet: N.p.o. DVt prophylaxis: Heparin subcu for the time being Code status: Full code (to be discussed with family/) Case discussed with Dr. Deras. Please see addendum for any change in management. Addendum by EMILIO DERAS MD on November 04, 2024 16:02:04 EST Patient was seen and examined and discussed with the ICU housestaff team. I agree with the assessment and plan as detailed above. In addition, I would like to add the following: Briefly, Marcela is a 69-year-old female past medical history coronary artery disease status post stenting in the , stress-induced cardiomyopathy with recovered ejection fraction, hypertension, dyslipidemia, COPD, tobacco abuse, bipolar disorder, GERD, anxiety and depression who presented as transfer from [facility] with acute respiratory failure requiring intubation. Initial saturation on 4 L nasal cannula was 70%. Lactic acid was elevated at 4.6. She initially went to ER at [facility] with shortness of breath and wheezing. She has been intubated on a prior admission in August 2023 for similar symptoms. Patient was initially tachycardic in the 140s and hypertensive. She was started on Cardizem drip. Chest x-ray showed moderate CHF. She has been started on Rocephin as well as azithromycin and Cardizem drip as well as DuoNebs and Lasix. Her past medical history, family history, social history and review of systems was reviewed and is as per documented above. On exam: General-no acute distress, she is sedated HEENT-normocephalic, atraumatic, intubated endotracheally Pulmonary-diminished bilaterally, no wheeze Cardiovascular-regular, no appreciable murmurs, gallops or rubs Abdomen-soft, nontender, bowel sounds positive Extremities-no cyanosis, clubbing or edema Neurologic-nonfocal Impression: 1. Acute on chronic hypercapnic hypoxemic respiratory failure, mechanical ventilatory support 2. Possible pneumonia versus pulmonary edema 3. New onset A-fib with RVR, resolved 4. Elevated D-dimer 5. Lactic acidosis 6. GI DVT prophylaxis Plan: 1. Continue current mode of mechanical ventilatory support with sedation, glycemic and ventilator associated pneumonia prevention protocols 2. Continue antibiotics for treatment of community-acquired pneumonia with Rocephin and azithromycin. Follow-up cultures 3. Follow-up proBNP, may need additional diuretic therapy 4. Check CTA 5. CBC and BMP in morning Overall prognosis guarded. Total critical care time today 35 minutes Future Appointments Appointment Date:12/06/2024 03:30:00 PM Scheduled Provider:NORA ROBERT Location:[facility] [place] [place] Appointment Type:CV Hospital Follow Up Diagnostic Tests Pending * Culture Respiratory with Gram Stain 11/04/24 Future Scheduled Tests Laboratory* Basic Metabolic Panel 01/22/24 * Basic Metabolic Panel 02/08/24 * Basic Metabolic Panel 01/31/24 [facility] 01-13-2025 Note* Exam Date Time Procedure Performing Provider Status 11/04/24 12:34 PM XR Abdomen AP ARANZA REDDY MD; Auth (Verified) [id number] ORIGINAL EXAMINATION: ONE XRAY VIEW OF THE CHEST; ONE SUPINE XRAY VIEW(S) OF THE ABDOMEN 11/04/2024 12:32 pm COMPARISON: 09/04/2023 HISTORY: ORDERING SYSTEM PROVIDED HISTORY: Reason for Exam: Endotracheal tube placement IMPRESSION: Interval placement of an endotracheal tube with tip visualized approximately 5.6 cm from the level of the steve. Nasogastric tube has been placed coursing past the level of diaphragm with side hole in the level of the distal gastric body. Lung hyperinflation. Stable appearance of the cardiomediastinal silhouette. Unchanged diffuse interstitial and alveolar pattern in the bilateral lungs which may be related to diffuse edema versus a diffuse interstitial infectious or inflammatory process. Mild blunting of the bilateral costophrenic angles suggestive of small bilateral pleural effusions. No pneumothorax. Severe right glenohumeral joint degenerative change. Interpreted by: Aranza Reddy Preliminary Report By: Aranza Reddy Electronically signed By Aranza Reddy Dictated Date: 11/04/2024 12:54:24 PM Prelim Date: 11/04/2024 12:56:39 PM Sign Date: 11/04/2024 12:56:39 PM Ordering Provider: [facility]01-13-2025 Note* Exam Date Time Procedure Performing Provider Status 11/04/24 12:32 PM XR Chest 1 View ARANZA REDDY MD; [facility] (Verified) [id number] ORIGINAL EXAMINATION: ONE XRAY VIEW OF THE CHEST; ONE SUPINE XRAY VIEW(S) OF THE ABDOMEN 11/04/2024 12:32 pm COMPARISON: 09/04/2023 HISTORY: ORDERING SYSTEM PROVIDED HISTORY: Reason for Exam: Endotracheal tube placement IMPRESSION: Interval placement of an endotracheal tube with tip visualized approximately 5.6 cm from the level of the steve. Nasogastric tube has been placed coursing past the level of diaphragm with side hole in the level of the distal gastric body. Lung hyperinflation. Stable appearance of the cardiomediastinal silhouette. Unchanged diffuse interstitial and alveolar pattern in the bilateral lungs which may be related to diffuse edema versus a diffuse interstitial infectious or inflammatory process. Mild blunting of the bilateral costophrenic angles suggestive of small bilateral pleural effusions. No pneumothorax. Severe right glenohumeral joint degenerative change. Interpreted by: Aranza Reddy Preliminary Report By: Aranza Reddy Electronically signed By Aranza Reddy Dictated Date: 11/04/2024 12:54:24 PM Prelim Date: 11/04/2024 12:56:39 PM Sign Date: 11/04/2024 12:56:39 PM Ordering Provider: [facility]01-13-2025 History and physical note Date of Service 11/04/2023 Chief Complaint breathlessnessx1 day History of Present Illness Patient is a 69 year old female who presents to [facility] s a transfer from [facility] on 11/04/2024 for concerns of breathlessness x 1 day Past medical history: CAD s/p PCI: RCA-1990s, recent left heart cath for NSTEMI: Moderate disease, stress-induced cardiomyopathy, severe disease in distal LAD and OM1: Medically managed on Aspirin, plavix, TTE: 12/2023: 65%, HFrEF with recovered EF: on Entresto, Coreg, Lasix every other day, HTN, HLD COPD, bipolar disorder, and tobacco use, GERD, anxiety, pression, history of suicide attempt: 2010 To note, patient is currently intubated and sedated. All history obtained from patient documentation that was sent from [facility]. Per documentation, appears that patient was apparently normal until early this morning when she began to have episodes of breathlessness, insidious onset, gradually increasing, associated with nonproductive cough, audible wheezing, generalized weakness,palpitations, with breathlessness worsening onexertion. Has had similar episodes in the past and has required admission to the MICU most recentlyin August 2023 when she was intubated. Based on documentation, patient did not endorse any calf pain, fevers, diaphoresis, sputum production or chest pain. On arrival, she appeared to be talking in single words, with oxygen muscle usage, appearing visibly breathless, with examination findings revealing bilateral expiratory wheezing. Given increasing oxygen requirements, patient was subsequently intubated after discussion with patient's over the phone, Madrigal's was placed as well. While in the ER at [facility], patient was also found to have an irregularly irregular rhythm and was also tachycardic all the way up to 143 bpm.For this purpose as well as elevated blood pressures, patient was given Cardizem loading as well asCardizem drip. On the way via the ambulance to [facility], patient converted and is now in normal sinus rhythm. Roughly at about 10:30 AM this morning. While at [facility] preliminary vitals, Lab work, radiological tests showed: BP: 235/135, HR: 110, RR: 36 seconds/min, SpO2: 70% at 4 L/min, temperature: 98.1 Fahrenheit Hb/WBC/PC: 11.9/14.6/608 Lymphocyte: 6.4 (lymphocytic predominance) NA/K/CL: 140/2.6/100 BUN/creat: 15/1.22. AST/ALT/ALP: 41/39/99 Limited panel: Negative Lactate: 4.6 Troponin high-sensitivity: 27.6 D-dimer: 1795 EKG: A-fib with RVR: With heart rates up to 111-141bpm UA: Negative for infection CXR: Moderate congestive heart failure present, severe hyperinflation present, consistent with COPD. ABG: pH/pCO2/pO2/HCO3: 7.12/91.5/105/ 29.7 She received Rocephin 2 g IV x 1 azithromycin 500 x 1, Cardizem 15 mg IV x 1, Cardizem drip at 5 mg/h, albuterol 2.5 mg x 1, DuoNeb x 1, Lasix 40 IV x 2 Patient is now being admitted to MICU for further management. Review of Systems acute care caveat applies. Physical Exam Vitals and Measurements T: 36.5 C (Oral) HR: 85 (Monitored) RR: 24 BP: 150/116 SpO2: 100% No qualifying data available. General Appearance: Appears to be stable and in no acute distress Head: Atraumatic and normocephalic EENT: EOMI, PERRLA, no oropharyngeal erythema, no tonsillar exudates, no conjunctival injection. sclera anicteric. Neck: No thyromegaly, no cervical lymphadenopathy, trachea midline Cardiac: S1 and S2 normal. RRR. No murmurs, rubs, or gallops. No JVD. No hepatojugular reflex. Bilateral lower lobe crackles in inspiratory phase. Lungs: Good air entry bilaterally. No increased work for breathing. No wheezes, rhonchi, or rales. Abdomen: Soft, nontender, nondistended. Normoactive bowel sounds. No rebound or guarding. Negative Schaefer's sign. No hepatosplenomegaly. Musculoskeletal: Full range of motion upper and lower extremities. No CVA tenderness. Extremities: No lower extremity pitting edema. 2+ radial and pedal pulses bilaterally. Neurological: CN II through XII grossly intact. 5/5 strength in upper and lower extremities. No asterixis or clonus. Skin: No abrasions, scars, or hematomas on visible skin. No cyanosis. No purulent discharge. Onychomyoctic toe nails Psychiatric: alert and oriented, well groomed, euthymic. cooperative Lab Results No 36 Hour Lab Data Imaging Results and Diagnostics XR Chest 1 View Result Date: November 04, 2024 Verified By: ARANZA REDDY MD CLINICAL STATEMENT: IMPRESSION: Interval placement of an endotracheal tube with tip visualized approximately5.6 cm fromthe level of the steve. Nasogastric tube has been placedcoursing past the level of diaphragm with side hole in the level of thedistal gastric body. Lung hyperinflation. Stable appearance of the cardi omediastinal silhouette.Unchanged diffuse interstitial and alveolar pattern in the bilateral lungswhich may be related to diffuse edema versus a diffuse interstitialinfectious or inflammatory process. Mild blunting of the bilateralcostophrenic angles suggestive of small bilateral pleural effusions. Nopneumothorax. Severe right glenohumeral joint degenerative change. XR Abdomen AP Result Date: November 04, 2024 Verified By: ARANZA REDDY MD CLINICAL STATEMENT: IMPRESSION: Interval placement of an endotracheal tube with tip visualized approximately5.6 cm fromthe level of the steve. Nasogastric tube has been placedcoursing past the level of diaphragm with side hole in the level of thedistal gastric body. Lung hyperinflation. Stable appearance of the cardi omediastinal silhouette.Unchanged diffuse interstitial and alveolar pattern in the bilateral lungswhich may be related to diffuse edema versus a diffuse interstitialinfectious or inflammatory process. Mild blunting of the bilateralcostophrenic angles suggestive of small bilateral pleural effusions. Nopneumothorax. Severe right glenohumeral joint degenerative change. Assessment/Plan Acute hypoxic and hypercapnic respiratory failure on MV Sepsis 2/2 Pneumonia? vs Possible acute systolic congestive heart failure (with evidence of pulm edema) vs Acute exacerbation of COPD, likely emphysema New onset A-fib and RVR-resolved Leucocytosis:14.6 Elevated D-Dimer: 1795(age adjusted) SANTO: 1.22 Lactic acidosis Normocytic anemia with thrombocytosis. DVT prophylaxis Code status Past medical history: CAD s/p PCI: RCA-1990s, recent left heart cath for NSTEMI: Moderate disease, stress-induced cardiomyopathy, severe disease in distal LAD and OM1: Medically managed on Aspirin, plavix, TTE: 12/2023: 65%, HFrEF with recovered EF: on Entresto, Coreg, Lasix every other day, HTN, HLD COPD, bipolar disorder, and tobacco use, GERD, anxiety, pression, history of suicide attempt: 2010 Plan -Admit to ICU. -Continue mechanical ventilation and sedation protocols. -Obtain imaging reads from [facility]. -For the time being, we will continue antibiotics with Rocephin and azithromycin. -Will collect blood cultures, sputum cultures, send atypical organism panel. -Will obtain a lactic on this patient. -Patient did already receive some diuretics while at .Will check IVC as well in order to assess fluid status. Repeat NT proBNP. -Resume home diuretics. -Elevated D-dimer noted. Age-adjusted does establish possible VTE. Will order a CT PE if not already done at . -HBW with bolus if positive. -For A-fib, patient is now in normal sinus rhythm. Could have likely been secondary to respiratory abnormalities. Continue home coreg. -Iron panel in view of normocytic anemia with thrombocytosis. -Podiatry consult for onychomycosis of toe nails. Diet: N.p.o. DVt prophylaxis: Heparin subcu for the time being Code status: Full code (to be discussed with family/) Case discussed with Dr. Deras. Please see addendum for any change in management. Problem List/Past Medical History Ongoing CAD in ek[place] artery Cardiomyopathy Procedure/Surgical History Echocardiogram: 09/04/23 Cardiac catheterization: 09/03/[address]: 09/02/23 6MWT - 6 minute walk test: 01/26/21 Pulmonary function test: 01/25/21 Duplex ultrasound of carotid artery: 01/06/17 Doppler ultrasound of renal artery: 12/27/16 Cardiac catheterization Medications Home Medications (13) Active albuterol MDI (90 mcg/inh) CFC free inhalation aerosol 1 puff(s), PRN, Inhalation, q4h aspirin 81 mg oral delayed release tablet 81 mg = 1 tab(s), Oral, Daily cephalexin 500 mg oral capsule Coreg 6.25 mg oral tablet 6.25 mg = 1 tab(s), Oral, BID dorzolamide 2% ophthalmic solution 1 drop(s), Eyes, both, TID Entresto 49 mg-51 mg oral tablet 1 tab(s), Oral, BID Klor-Con M20 oral tablet, extended release 20 mEq = 1 tab(s), Oral, BID Lasix 20 mg oral tablet See Instructions oxybutynin 5 mg/24 hours oral tablet, extended release 5 mg = 1 tab(s), Oral, qDay Plavix 75 mg oral tablet 75 mg = 1 tab(s), Oral, qDay rosuvastatin 20 mg oral tablet 40 mg = 2 tab(s), Oral, qDay Trelegy Ellipta 100 mcg-62.5 mcg-25 mcg/inh inhalation powder 1 puff(s), Inhalation, qDay Zetia 10 mg oral tablet 10 mg = 1 tab(s), Oral, qDay Allergies NKA Social History Smoking Status - 06/20/2011 Patient smokes Alcohol Use: none., 09/28/2023 Nutrition/Health Caffeine intake amount: 3-4 cups per day., 09/28/2023 Substance Abuse Use: Past. Type: Marijuana., 01/22/2024 Tobacco Nicotine Use: 5-9 cigarettes (between 1/4 to 1/2 pack)/day in last 30 days, 10 or more cigarettes (1/2 pack or more)/day in last 30 days., 2024 Family History Cancer: Sister and Brother. Seizure disorder: Mother and Sister. Health Status Family Member(s) Immunizations No qualifying data available. Code Status No qualifying data available. Digitally Signed by KAYLA RYAN MD on 11/04/2024 03:48 PM [facility] [id number] [facility]12-12-2024 History of Present illness Narrative* Susan Fontana APRN-[employer] - 10/03/2024 2:10 PM EST Subjective Patient ID: Zabrina Hsu is a 69 y.o. female who presents for 1 year visit. HPI Here today for 1 year visit She denies any acute concerns She is a poor historian, most of the history is from inferring from med list and previous PCP one note. Care everywhere does not provide any more details. Currently treated for COPD, CAD, CHF, and hyperlipidemia. In June she had COPD exacerbation, went to [place] and was transferred to [place] per the patient. Rpeorts since that admission she still uses albuterol daily, and trelegy daily. She is currently taking Plavix, ASA and aspirin, she is unsure if she had an DC in the past or who started her on these medications. I strongly advised Zabrina Hsu to consider smoking cessation. I offered support and advice on techniques to help with cessation. >3 minutes discussing smoking cessation Review of Systems Constitutional: Negative for chills, fatigue and fever. HENT: Positive for congestion. Respiratory: Positive for cough and shortness of breath. Negative for wheezing. Cardiovascular: Negative for chest pain, palpitations and leg swelling. Gastrointestinal: Negative for abdominal pain, constipation, diarrhea, nausea and vomiting. Genitourinary: Negative for dysuria. Neurological: Negative for light-headedness and headaches. Objective BP (!) 195/81 (Patient Position: Sitting) Pulse 60 Ht 1.626 m (5' 4) Wt 47.6 kg (105 lb) BMI 18.02 kg/m Physical Exam Cardiovascular: Rate and Rhythm: Normal rate and regular rhythm. Heart sounds: Normal heart sounds. Pulmonary: Breath sounds: Normal breath sounds. Musculoskeletal: Right lower leg: No edema. Left lower leg: No edema. Skin: Capillary Refill: Capillary refill takes less than 2 seconds. Neurological: Mental Status: She is alert and oriented to person, place, and time. Assessment/Plan Problem List Items Addressed This Visit None Visit Diagnoses Codes Primary hypertension - Primary I10 Relevant Medications losartan (Cozaar) 50 mg tablet Other Relevant Orders Transthoracic Echo (TTE) Complete Comprehensive Metabolic Panel Referral to Cardiology Congestive heart failure, unspecified HF chronicity, unspecified heart failure type I50.9 Relevant Orders Transthoracic Echo (TTE) Complete Referral to Cardiology 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, unspecified vessel orlesion type I25.110 Relevant Orders Transthoracic Echo (TTE) Complete CBC and Auto Differential Referral to Cardiology Chronic obstructive pulmonary disease, unspecified COPD type (Multi) J44.9 Relevant Medications montelukast (Singulair) 10 mg tablet Health maintenance examination Z00.00 Relevant Orders Lipid Panel TSH with reflex to Free T4 if abnormal Care gaps -Lab work ordered -Mammo has had in the past, declines wanting more testing -colonoscopy, had in the past denies wanting any more -declines bone density CHF -Has not had a recent echo, will order one for EF evaluation -continue lasix daily CAD -Continue plavix and ASA -Encourage follow up with cardiology, referral placed -continue metoprolol 25mg daily COPD -Continue Trelegy daily -continue albuterol PRN, reports using it daily -Will start singulair nightly HTN -Currently taking metoprolol and lasix -Will start losartan 50mg daily documented in this [facility] Work Phone: [phone] 455-344711-27-2023 History of Present illness Narrative* Elvin Blanc PA-C - 09/18/2023 11:50 AM EST Subjective Patient ID: Zabrina Hsu is a 68 y.o. female who presents for Establish Care (Patient here to get established as a new patient and transferring from [place]./Patient dx with COPD, seen in ER last week for SOB and put on Oxygen 2 liters daily./Colonoscopy, mammogram and pap test done over 10years, bone density never done.). HPI Patient presents to [facility] care. Patient is a very poor historian. Chronic illnesses were essentially deduced by looking at the med list. Currently patient is treated for coronary artery disease, COPD, heart failure, hypertension, and dyslipidemia. Patient currently taking Plavix, Trelegy, Lasix, metoprolol, and Crestor in management of these. Patient was recently admitted to hospital in [facility]. Patient is not sure why stating simply that she could not breathe. Discharge papers state acute respiratory failure. Patient states she wasin the hospital for almost a week but is not sure what for otherwise and does not recall any specific treatments while there. Discharge papers also gave information regarding PCI however, patient denies that this occurred. Patient did have a stent placed in the 90s?. Patient states she was discharged on 2 L O2. Patient has not seen cardiology or pulmonology. Patient is current with colorectal screening having a normal colonoscopy approximately 5 years ago.Patient does not recall having screening labs within the last year. Review of Systems Constitutional: See HPI Eye: No recent visual problem. Respiratory: See HPI Cardiovascular: No chest pain. Gastrointestinal: No abdominal pain, No nausea, No vomiting. Genitourinary: No dysuria, No hematuria. Musculoskeletal: No decreased range of motion. Integumentary: No rash. Neurologic: Alert and oriented X4, No numbness, No tingling. All other systems are negative Objective BP (!) 188/75 Pulse 63 Temp 36.6 C (97.8 F) (Temporal) Ht 1.626 m (5' 4) Wt 46.8 kg (103 lb 1.6 oz) SpO2 95% BMI 17.70 kg/m Physical Exam General: Alert and oriented, No acute distress. Eye: Pupils are equal, round and reactive to light, Extraocular movements are intact, Normal conjunctiva. HENT: Normocephalic, Normal hearing, Oral mucosa is moist, No pharyngeal erythema, No sinus tenderness. Neck: Supple, Non-tender, No lymphadenopathy. Respiratory: Lungs are clear to auscultation, Respirations are non-labored, Breath sounds are equal Cardiovascular: Normal rate, Regular rhythm. Gastrointestinal: Non-distended. Musculoskeletal: Normal range of motion, Normal strength, No tenderness, No swelling, No deformity,Normal gait. Integumentary: Warm, Dry, Intact, No pallor, No rash. Neurologic: Alert, Oriented, Normal sensory, Normal motor function, No focal deficits, Cranial Nerves II-XII are grossly intact Psychiatric: Cooperative, Appropriate mood & affect. Assessment/Plan COPD/recent respiratory failure: Patient has referral to pulmonology from the hospital stay. Recommend keeping this appointment. CAD with history of stent, CHF, and hypertension: Patient is also scheduled to see cardiology next week. Recommend following with them as scheduled. Screening labs ordered. Further recommendations pending results. Refilled medications. Follow-up in1 year or as needed unless labs dictate otherwise. Problem List Items Addressed This Visit None Visit Diagnoses Chronic obstructive pulmonary disease, unspecified COPD type (CMS/HCC) - Primary Relevant Orders CBC Comprehensive Metabolic Panel Lipid Panel TSH with reflex to Free T4 if abnormal 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, unspecified vessel orlesion type (CMS/HCC) Relevant Medications metoprolol succinate XL (Toprol-XL) 25 mg 24 hr tablet clopidogrel (Plavix) 75 mg tablet Other Relevant Orders CBC Comprehensive Metabolic Panel Lipid Panel TSH with reflex to Free T4 if abnormal Primary hypertension Relevant Orders CBC Comprehensive Metabolic Panel Lipid Panel TSH with reflex to Free T4 if abnormal Congestive heart failure, unspecified HF chronicity, unspecified heart failure type (CMS/HCC) Relevant Medications metoprolol succinate XL (Toprol-XL) 25 mg 24 hr tablet clopidogrel (Plavix) 75 mg tablet furosemide (Lasix) 20 mg tablet Other Relevant Orders CBC Comprehensive Metabolic Panel Lipid Panel TSH with reflex to Free T4 if abnormal Final diagnoses: [J44.9] Chronic obstructive pulmonary disease, unspecified COPD type (CMS/HCC) [I25.110] 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, unspecifiedvessel or lesion type (CMS/HCC) [I10] Primary hypertension [I50.9] Congestive heart failure, unspecified HF chronicity, unspecified heart failure type (CMS/HCC) documented in this [facility] Work Phone: [phone]) 706-328511-16-2023 Note. MICRO - Microbiology PROCEDURE: Blood Culture (bacterial) [*1] SOURCE: Blood BODY SITE: COLLECTED DATE/TIME: 09/02/2023 00:40 EST RECEIVED DATE/TIME: 09/02/2023 18:10 EST START DATE/TIME: 09/02/2023 18:10 EST FREE TEXT SOURCE: FINAL REPORTS Final Report [] Verified Date/Time/Personnel: 09/07/2023 18:59 EST Blood Culture: No Growth at 5 days. PRELIMINARY REPORTS Preliminary Report [] Verified Date/Time/Personnel: 09/02/2023 18:59 EST Culture has been received in lab and is no growth to date. Routine cultures are held for 5 days. Performing Locations *1: This test was performed at: [address], [facility] , [facility] ([place])09-07-2023 Note. MICRO - Microbiology PROCEDURE: Blood Culture (bacterial) [*1] SOURCE: Blood BODY SITE: COLLECTED DATE/TIME: 09/02/2023 01:00 EST RECEIVED DATE/TIME: 09/02/2023 16:47 EST START DATE/TIME: 09/02/2023 16:47 EST FREE TEXT SOURCE: FINAL REPORTS Final Report [] Verified Date/Time/Personnel: 09/07/2023 16:59 EST Blood Culture: No Growth at 5 days. PRELIMINARY REPORTS Preliminary Report [] Verified Date/Time/Personnel: 09/02/2023 17:59 EST Culture has been received in lab and is no growth to date. Routine cultures are held for 5 days. Performing Locations *1: This test was performed at: [address], [address] [place], [place] [address]-07-2023 Note. MICRO - Microbiology PROCEDURE: Blood Culture (bacterial) [*1] SOURCE: Blood BODY SITE: COLLECTED DATE/TIME: 09/02/2023 06:59 EST RECEIVED DATE/TIME: 09/02/2023 07:56 EST START DATE/TIME: 09/02/2023 07:56 EST FREE TEXT SOURCE: FINAL REPORTS Final Report [] Verified Date/Time/Personnel: 09/07/2023 07:59 EST Blood Culture: No Growth at 5 days. PRELIMINARY REPORTS Preliminary Report [] Verified Date/Time/Personnel: 09/02/2023 08:59 EST Culture has been received in lab and is no growth to date. Routine cultures are held for 5 days. Performing Locations *1: This test was performed at: [address], [address] [place] [address] ([facility]09-07-2023 Note. MICRO - Microbiology PROCEDURE: Blood Culture (bacterial) [*1] SOURCE: Blood BODY SITE: COLLECTED DATE/TIME: 09/02/2023 06:59 EST RECEIVED DATE/TIME: 09/02/2023 07:56 EST START DATE/TIME: 09/02/2023 07:56 EST FREE TEXT SOURCE: FINAL REPORTS Final Report [] Verified Date/Time/Personnel: 09/07/2023 07:59 EST Blood Culture: No Growth at 5 days. PRELIMINARY REPORTS Preliminary Report [] Verified Date/Time/Personnel: 09/02/2023 08:59 EST Culture has been received in lab and is no growth to date. Routine cultures are held for 5 days. Performing Locations *1: This test was performed at: [address], [address] [place] [address] ([place])09-06-2023 Hospital Discharge instructions Patient Education 09/06/2023 11:21:47 3- Heart Cath/PCI radial (07/2018)(CUSTOM) HEART CATHETERIZATION/PCI (radial) Discharge Instructions DIET Drink plenty of fluids for the next 48 hours to help your kidneys flush the heart cath dye out of your system ACTIVITY For the next 48 hours: Do not deep bend the wrist Do not lift, push, or pull anything over 5 pounds Do not use the hand/arm to support your weight when rising from a chair or bed Do not drive For the next 7 days: Do not submerse your procedure site in water Do not swim, wash dishes, or take tub baths You may write, eat, type, and shower WOUND CARE Keep a Band-Aid on your procedure site for the next 3-4 days Change the Band-Aid daily or if it gets wet/soiled AFTER YOU GO HOME, CALL YOUR DOCTOR FOR: Any increase in bruising or tenderness from the procedure site Any redness, pus, or other signs of infection at the site A temperature above 100.5 Severe pain at the site DIAL 911 AND RETURN TO THE HOSPITAL FOR: Any bleeding from the procedure site. The site may be bruised or tender, but it should not be bleeding at any time. If your site begins to bleed, hold firm pressure on it and dial 911 to return to the hospital Any increase in swelling at the procedure site. An increase in swelling could mean the area is bleeding under the skin. Hold firm pressure to the site and dial 911 to return to the hospital Document Released: 10/09/2006 Document Revised: 09/25/2013 Document Reviewed: 10/10/2014 ExitCare Patient Information 2015 [email or web address]. This information is not intended to replace advicegiven to you by your health care provider. Make sure you discuss any questions you have with your health care provider. 09/06/2023 11:21:24 Acute Respiratory Failure, Adult Acute Respiratory Failure, Adult Acute respiratory failure occurs when there is not enough oxygen passing from your lungs to your body. When this happens, your lungs have trouble removing carbon dioxide from the blood. This causes your blood oxygen level to drop too low as carbon dioxide builds up. Acute respiratory failure is a medical emergency. It can develop quickly, but it is temporary if treated promptly. Your lung capacity, or how much air your lungs can hold, may improve with time, exercise, and treatment. What are the causes? There are many possible causes of acute respiratory failure, including: Lung injury. Chest injury or damage to the ribs or tissues near the lungs. Lung conditions that affect the flow of air and blood into and out of the lungs, such as pneumonia,acute respiratory distress syndrome, and cystic fibrosis. Medical conditions, such as strokes or spinal cord injuries, that affect the muscles and nerves that control breathing. Blood infection (sepsis). Inflammation of the pancreas (pancreatitis). A blood clot in the lungs (pulmonary embolism). A large-volume blood transfusion. Pryor. Near-drowning. Seizure. Smoke inhalation. Reaction to medicines. Alcohol or drug overdose. What increases the risk? This condition is more likely to develop in people who have: A blocked airway. Asthma. A condition or disease that damages or weakens the muscles, nerves, bones, or tissues that are involved in breathing. A serious infection. A health problem that blocks the unconscious reflex that is involved in breathing, such as hypothyroidism or sleep apnea. A lung injury or trauma. What are the signs or symptoms? Trouble breathing is the main symptom of acute respiratory failure. Symptoms may also include: Rapid breathing. Restlessness or anxiety. Skin, lips, or fingernails that appear blue (cyanosis). Rapid heart rate. Abnormal heart rhythms (arrhythmias). Confusion or changes in behavior. Tiredness or loss of energy. Feeling sleepy or having a loss of consciousness. How is this diagnosed? Your health care provider can diagnose acute respiratory failure with a medical history and physical exam. During the exam, your health care provider will listen to your heart and check for cracklingor wheezing sounds in your lungs. Your may also have tests to confirm the diagnosis and determine what is causing respiratory failure. These tests may include: Measuring the amount of oxygen in your blood (pulse oximetry). The measurement comes from a small device that is placed on your finger, earlobe, or toe. Other blood tests to measure blood gases and to look for signs of infection. Sampling your cerebral spinal fluid or tracheal fluid to check for infections. Chest X-ray to look for fluid in spaces that should be filled with air. Electrocardiogram (ECG) to look at the heart's electrical activity. How is this treated? Treatment for this condition usually takes places in a hospital intensive care unit (ICU). Treatment depends on what is causing the condition. It may include one or more treatments until your symptoms improve. Treatment may include: Supplemental oxygen. Extra oxygen is given through a tube in the nose, a face mask, or a ontiveros. A device such as a continuous positive airway pressure (CPAP) or bi-level positive airway pressure (BiPAP or BPAP) machine. This treatment uses mild air pressure to keep the airways open. A mask or other device will be placed over your nose or mouth. A tube that is connected to a motor will deliveroxygen through the mask. Ventilator. This treatment helps move air into and out of the lungs. This may be done with a bag and mask or a machine. For this treatment, a tube is placed in your windpipe (trachea) so air and oxygen can flow to the lungs. Extracorporeal membrane oxygenation (ECMO). This treatment temporarily takes over the function of the heart and lungs, supplying oxygen and removing carbon dioxide. ECMO gives the lungs a chance to recover. It may be used if a ventilator is not effective. Tracheostomy. This is a procedure that creates a hole in the neck to insert a breathing tube. Receiving fluids and medicines. Rocking the bed to help breathing. Follow these instructions at home: Take [id number]-[id number] and prescription medicines only as told by your health care provider. Return to normal activities as told by your health care provider. Ask your health care provider what activities are safe for you. Keep all follow-up visits as told by your health care provider. This is important. How is this prevented? Treating infections and medical conditions that may lead to acute respiratory failure can help prevent the condition from developing. Contact a health care provider if: You have a fever. Your symptoms do not improve or they get worse. Get help right away if: You are having trouble breathing. You lose consciousness. Your have cyanosis or turn blue. You develop a rapid heart rate. You are confused. These symptoms may represent a serious problem that is an emergency. Do not wait to see if the symptoms will go away. Get medical help right away. Call your local emergency services (911 in the [place] Do not drive yourself to the hospital. This information is not intended to replace advice given to you by your health care provider. Make sure you discuss any questions you have with your health care provider. Document Released: 10/14/2014 Document Revised: 09/21/2018 Document Reviewed: 04/26/2017 Lien Patient Education 2020 [employer]. 09/06/2023 11:20:40 Home Oxygen Use, Adult Home Oxygen Use, Adult When a medical condition keeps you from getting enough oxygen, your health care provider may instruct you to take extra oxygen at home. Your health care provider will let you know: When to take oxygen. For how long to take oxygen. How quickly oxygen should be delivered (flow rate), in liters per minute (LPM or L/M). Home oxygen can be given through: A mask. A nasal cannula. This is a device or tube that goes in the nostrils. A transtracheal catheter. This is a small, flexible tube placed in the trachea. A tracheostomy. This is a surgically made opening in the trachea. These devices are connected with tubing to an oxygen source, such as: A tank. Tanks hold oxygen in gas form. They must be replaced when the oxygen is used up. A liquid oxygen device. This holds oxygen in liquid form. It must be replaced when the oxygen is used up. An oxygen concentrator machine. This filters oxygen in the room. It uses electricity, so you must have a backup cylinder of oxygen in case the power goes out. Supplies needed: To use oxygen, you will need: A mask, nasal cannula, transtracheal catheter, or tracheostomy. An oxygen tank, a liquid oxygen device, or an oxygen concentrator. The tape that your health care provider recommends (optional). If you use a transtracheal catheter and your prescribed flow rate is 1 LPM or greater, you will also need a humidifier. Risks and complications Fire. This can happen if the oxygen is exposed to a heat source, flame, or spark. Injury to skin. This can happen if liquid oxygen touches your skin. Organ damage. This can happen if you get too little oxygen. How to use oxygen Your health care provider or a business representative from your medical office receptionist assistant company will show you how touse your oxygen device. Follow her or his instructions. The instructions may look something like this: 1.Wash your hands. 2.If you use an oxygen concentrator, make sure it is plugged in. 3.Place one end of the tube into the port on the tank, device, or machine. 4.Place the mask over your nose and mouth. Or, place the nasal cannula and secure it with tape if instructed. If you use a tracheostomy or transtracheal catheter, connect it to the oxygen source as directed. 5.Make sure the liter-flow setting on the machine is at the level prescribed by your health care provider. 6.Turn on the machine or adjust the knob on the tank or device to the correct liter-flow setting. 7.When you are done, turn off and unplug the machine, or turn the knob to OFF. How to clean and care for the oxygen supplies Nasal cannula Clean it with a warm, wet cloth daily or as needed. Wash it with a liquid soap once a week. Rinse it thoroughly once or twice a week. Replace it every 2 4 weeks. If you have an infection, such as a cold or pneumonia, change the cannula when you get better. Mask Replace it every 2 4 weeks. If you have an infection, such as a cold or pneumonia, change the mask when you get better. Humidifier bottle Wash the bottle between each refill: ?Wash it with soap and warm water. ?Rinse it thoroughly. ?Disinfect it and its top. ?Air-dry it. Make sure it is dry before you refill it. Oxygen concentrator Clean the air filter at least twice a week according to directions from your home medical equipmentand service company. Wipe down the cabinet every day. To do this: ?Unplug the unit. ?Wipe down the cabinet with a damp cloth. ?Dry the cabinet. Other equipment Change any extra tubing every 1 3 months. Follow instructions from your health care provider about taking care of any other equipment. Safety tips Fire safety tips Keep your oxygen and oxygen supplies at least 5 ft away from sources of heat, flames, and laura atall times. Do not allow smoking near your oxygen. Put up no smoking signs in your home. Avoid smoking areas when in public. Do not use materials that can burn (are flammable) while you use oxygen. When you go to a restaurant with portable oxygen, ask to be seated in the nonsmoking section. Keep a fire extinguisher close by. Let your fire department know that you have oxygen in your home. Test your home smoke detectors regularly. Traveling Secure your oxygen tank in the vehicle so that it does not move around. Follow instructions from your medical office receptionist assistant company about how to safely secure your tank. Make sure you have enough oxygen for the amount of time you will be away from home. If you are planning air travel, contact the airline to find out if they allow the use of an approved portable oxygen concentrator. You may also need documents from your health care provider and medical office receptionist assistant company before you travel. General safety tips If you use an oxygen cylinder, make sure it is in a stand or secured to an object that will not move (fixed object). If you use liquid oxygen, make sure its container is kept upright. If you use an oxygen concentrator: ?Tell your electric company. Make sure you are given priority service in the event that your power goes out. ?Avoid using extension cords, if possible. Follow these instructions at home: Use oxygen only as told by your health care provider. Do not use alcohol or other drugs that make you relax (sedating drugs) unless instructed. They can slow down your breathing rate and make it hard to get in enough oxygen. Know how and when to order a refill of oxygen. Always keep a spare tank of oxygen. Plan ahead for holidays when you may not be able to get a prescription filled. Use water-based lubricants on your lips or nostrils. Do not use oil-based products like petroleum jelly. To prevent skin irritation on your cheeks or behind your ears, tuck some gauze under the tubing. Contact a health care provider if: You get headaches often. You have shortness of breath. You have a lasting cough. You have anxiety. You are sleepy all the time. You develop an illness that affects your breathing. You cannot exercise at your regular level. You are restless. You have difficult or irregular breathing, and it is getting worse. You have a fever. You have persistent redness under your nose. Get help right away if: You are confused. You have blue lips or fingernails. You are struggling to breathe. Summary Your health care provider or a business representative from your medical office receptionist assistant company will show you how touse your oxygen device. Follow her or his instructions. If you use an oxygen concentrator, make sure it is plugged in. Make sure the liter-flow setting on the machine is at the level prescribed by your health care provider. Keep your oxygen and oxygen supplies at least 5 ft away from sources of heat, flames, and laura atall times. This information is not intended to replace advice given to you by your health care provider. Make sure you discuss any questions you have with your health care provider. Document Released: 12/29/2004 Document Revised: 03/28/2019 Document Reviewed: 05/02/2017 [employer] Patient Education 2020 [employer]. Follow Up Care 09/02/2023 04:20:17 With:[employer] will be your oxygen supplier. Please call [phone] for questions or concerns. Address: When: Unknown With:FERCHO VILLASEÑOR Address: [address] [place] [phone] Business (1) When:1-2 days With:SAMMIE ZARAGOZA MD Address: [address] [address] [place] [address]- [phone] When:5 to 7 days With:ASTRID ROBERT MD Address: [address] [place], [place] [id number]- [phone] When:09/13/2023 15:00:00 With:[facility] will contact you for an appointment If you have any questions please call:[phone]. Address: When: Unknown [facility] 11-15-2023 Note Discharge Instructions Thank you for allowing [facility] to assist you with your healthcare needs. The following is importantdischarge information regarding your hospital visit. Your Care Team DO FERCHO VILLASEÑOR What to do next Scheduled Follow-Up Appointments Appointment Type When Where [facility] 09/13/2023 03:00 PM EST [facility] Follow Up Appointments Follow Up with ASTRID ROBERT MD When 09/13/2023 03:00 PM EST Where: [address] [facility] [address] [place], [place] [id number]- [phone] Follow Up with SAMMIE ZARAGOZA MD When Within 5 to 7 days Where: [address] [place] [address] [place] [address]- [phone] [facility] contact you for an appointment If you have any questionsplease call:[phone]. When Where: The Following Activity and Diet Have Been Ordered for You No qualifying data available. No qualifying data available. The Following Equipment Has Been Ordered for You Discharge Home Equipment Discharge Oxygen Therapy - Ordered -- Oxygen (CONTINUOUS) Concentrator, Portable O2 Mobile in the Home, Nasal Cannula, 2 liters per minute, Respiratory Failure, Alternatives Attempted: unable to wean while in hospital, 99 month(s), 09/06/23 10:18:00 EST The Following Treatments Have Been Ordered for You Discharge Labs No qualifying data available. Discharge Radiology No qualifying data available. Other Therapies No qualifying data available. Post Acute Orders No qualifying data available. Someone Will Contact You Regarding These Home Health Referrals No home referrals have been ordered for you. No one will call you. Allergies NKA Medications Please ask your primary doctor or pharmacist before taking any other medication not listed, including over the counter drugs, herbal medications, vitamins and or supplements as they may interact withyour home medications. What How Much When Instructions Last Dose New albuterol (albuterol MDI (90 mcg/ inh) CFC free inhalation aerosol) 1 puff(s) by inhalation Every 4 hours as needed for as needed for wheezing Refills: 3 Pickup at [facility] New clopidogrel (Plavix 75 mg oral tablet) 1 tab(s) by mouth Once a day Refills: 3 Pickup at [facility] New fluticasone/ umeclidinium/ vilanterol (Trelegy Ellipta 100 mcg-62.5 mcg-25 mcg/ inh inhalation powder) 1 puff(s) by inhalation Once a day Refills: 3 at the same time every day. Following administration, rinse mouth with water after use (do not swallow). Pickup at [facility] New furosemide (Lasix 20 mg oral tablet) 1 tab(s) by mouth Once a day Refills: 3 Pickup at [facility] New metoprolol (metoprolol succinate 25 mg oral TABLET extended release) 1 tab(s) by mouth Twice daily with meals Refills: 3 Pickup at [facility] New rosuvastatin (rosuvastatin 20 mg oral tablet) 2 tab(s) by mouth Once a day Refills: 3 Pickup at [facility] New sacubitril-valsartan (Entresto 24 mg-26 mg oral tablet) 1 tab(s) by mouth Two (2) times a day Refills: 3 Pickup at [facility] Unchanged aspirin (aspirin 81 mg oral delayed release tablet) 1 tab(s) by mouth Every day Unchanged buPROPion (Wellbutrin SR) 100 Milligram by mouth Once a day Unchanged oxcarbazepine (Trileptal) 150 Milligram by mouth Daily at bedtime Pharmacy Information [facility]: [address], [place] [id number] [phone] Please take this list to your next doctor s visit. Bring all medications you take, including over the counter medications, herbals and other supplements with you to your doctor s visit. Patients and families are reminded to discard old lists and to update any records with all medication providers or retail pharmacies. Medication Leaflets furosemide (oral/injection) (fur [place] se mide) Furoscix, Lasix What is the most important information I should know about furosemide? You should not use this medicine if you are unable to urinate. Using more than your recommended dose will not make this medicine more effective. High doses of furosemide may cause irreversible hearing loss. Tell your doctor about all your other medicines. Some drugs should not be used with furosemide. What is furosemide? Furosemide is used to treat fluid retention (edema) in people with congestive heart failure, liver disease, or a kidney disorder such as nephrotic syndrome. Furosemide is also used to treat high blood pressure (hypertension). The Furiosi brand of furosemide is only used in adults. Furosemide may also be used for purposes not listed in this medication guide. What should I discuss with my healthcare provider before using furosemide? You should not use furosemide if you are allergic to it, if you are unable to urinate or have hepatic cirrhosis. You should not use Furiosi if you have ascites or have allergies to medical adhesives. Tell your doctor if you have ever had: an electrolyte imbalance (such as low levels of potassium or magnesium in your blood); enlarged prostate, bladder obstruction, or other urination problems; gout; lupus; diabetes; an allergy to sulfa drugs; kidney disease; or cirrhosis or other liver disease. Tell your doctor if you have an MRI (magnetic resonance imaging) or any type of scan using a radioactive dye that is injected into a vein. Contrast dyes and furosemide can harm your kidneys. It is not known if furosemide will harm an unborn baby. Tell your doctor if you are or plan to become . It may not be safe to breastfeed while using this medicine. Ask your doctor about any risk. Furosemide may slow breast milk production. How should I use furosemide? Follow all directions on your prescription label and read all medication guides or instruction sheets. Use the medicine exactly as directed. Furosemide oral is taken by mouth. Furosemide injection is given in a muscle, under the skin, or howard vein. A healthcare provider will give you this injection if you are unable to take the medicine by mouth. Furiosi infusion lasts about 5 hours. Furiosi should not get wet. Do not bathe, shower, swim or exercise while wearing the infusor. Also do not apply any products such as lotions or creams in the area where the infusor is placed. It is not recommended to travel by car or airplane while using Furiosi. Also do not use the infusorwithin 12 inches of mobile phones, tablets, computers, or wireless accessories such as [employer] control, or [employer] devices. Do not reuse a needle, syringe or cartridge. Place them in a puncture-proof 'sharps' container and dispose of it following state or local laws. Keep out of the reach of children and pets. You may receive your first dose in a hospital or clinic setting if you have severe liver disease. Do not use more than your recommended dose. High doses of furosemide may cause irreversible hearingloss. Measure liquid medicine with the supplied measuring device (not a kitchen spoon). Doses are based on weight in children and teenagers. Your child's dose may change if the child gains or loses weight. Furosemide will make you urinate more often and you may get dehydrated easily. Follow your doctor'sinstructions about using potassium supplements or getting enough salt and potassium in your diet. Your blood pressure will need to be checked often and you may need other medical tests. If you have high blood pressure, keep using this medicine even if you feel well. High blood pressure often has no symptoms. If you need surgery, tell the surgeon ahead of time that you are using furosemide. Store at room temperature away from moisture, heat, and light. Throw away any unused oral liquid after 90 days. What happens if I miss a dose? Furosemide is sometimes used only once, so you may not be on a dosing schedule. If you are using the medication regularly, use the medicine as soon as you can, but skip the missed dose if it is almost time for your next dose. Do not use two doses at one time. What happens if I overdose? Seek emergency medical attention or call the Poison Help line at . Overdose symptoms may include feeling very thirsty or hot, heavy sweating, hot and dry skin, extreme weakness, or fainting. What should I avoid while using furosemide? Avoid getting up too fast from a sitting or lying position, or you may feel dizzy. Avoid becoming dehydrated. Follow your doctor's instructions about the type and amount of liquids you should drink while you are using furosemide. Drinking alcohol with this medicine can cause side effects. Furosemide could make you sunburn more easily. Avoid sunlight or tanning beds. Wear protective clothing and use sunscreen (SPF 30 or higher) when you are outdoors. If you have high blood pressure, ask a doctor or pharmacist before taking any medicines that can raise your blood pressure, such as diet pills or dnqcz-fyh-qdqr medicine. What are the possible side effects of furosemide? Get emergency medical help if you have signs of an allergic reaction (hives, difficult breathing, swelling in your face or throat) or a severe skin reaction (fever, sore throat, burning eyes, skin pain, red or purple skin rash with blistering and peeling). Call your doctor at once if you have: a light-headed feeling, like you might pass out; ringing in your ears, hearing loss; muscle spasms or contractions; pale skin, easy bruising, unusual bleeding; high blood sugar--increased thirst, increased urination, dry mouth, fruity breath odor; kidney problems--swelling, urinating less, feeling tired or short of breath signs of liver or pancreas problems--loss of appetite, upper stomach pain (that may spread to your back), nausea or vomiting, dark urine, jaundice (yellowing of the skin or eyes); or signs of an electrolyte imbalance--increased thirst or urination, constipation, muscle weakness, leg cramps, numbness or tingling, feeling jittery, fluttering in your chest. Common side effects may include: diarrhea, constipation, loss of appetite; numbness or tingling; headache, dizziness; or blurred vision. This is not a complete list of side effects and others may occur. Call your doctor for medical advice about side effects. You may report side effects to FDA at 6-921-DCA-5374. What other drugs will affect furosemide? Sometimes it is not safe to use certain medicines at the same time. Some drugs can affect your blood levels of other drugs you use, which may increase side effects or make the medicines less effective If you also take sucralfate, take your furosemide dose 2 hours before or 2 hours after you take sucralfate. Tell your doctor about all your other medicines, especially: another diuretic, especially ethacrynic acid; methotrexate; chloral hydrate; lithium; phenytoin; an antibiotic; cancer medicine, such as cisplatin; heart or blood pressure medicine; or NSAIDs (nonsteroidal anti-inflammatory drugs)--aspirin, ibuprofen (Advil, Motrin), naproxen (Aleve), celecoxib, diclofenac, indomethacin, meloxicam, and others. This list is not complete. Other drugs may affect furosemide, including prescription and ycwg-qwk-yxvzrie medicines, vitamins, and herbal products. Not all possible drug interactions are listed here. Where can I get more information? Your doctor or pharmacist can provide more information about furosemide. Remember, keep this and all other medicines out of the reach of children, never share your medicines with others, and use this medication only for the indication prescribed. Every effort has been made to ensure that the information provided by [employer]. ('[employer]') is accurate, up-to-date, and complete, but no guarantee is made to that effect. Drug information contained herein may be time sensitive. [employer] information has been compiled for use by healthcare practitioners and consumers in the [place] and therefore [employer] does not warrant that uses outside of the [place] are appropriate, unless specifically indicated otherwise. [employer] drug information does not endorse drugs, diagnose patients or recommend therapy. [employer] drug information isan informational resource designed to assist licensed healthcare practitioners in caring for their p atients and/or to serve consumers viewing this service as a supplement to, and not a substitute for, the expertise, skill, knowledge and judgment of healthcare practitioners. The absence of a warningfor a given drug or drug combination in no way should be construed to indicate that the drug or drug combination is safe, effective or appropriate for any given patient. [facility] does not assume any responsibility for any aspect of healthcare administered with the aid of information [facility] provides. The information contained herein is not intended to cover all possible uses, directions, precautions, warnings, drug interactions, allergic reactions, or adverse effects. If you have questions about the drugs you are taking, check with your doctor, nurse or pharmacist. Copyright 9524-5469 [facility] Services[facility]. Version: 18.. Revision Date: 12/30/2022. metoprolol (oral/injection) (me TOE pro lol) Kapspargo Sprinkle, Lopressor, Metoprolol Succinate ER, Metoprolol Tartrate, Toprol-XL What is the most important information I should know about metoprolol? You should not use this medicine if you have a serious heart problem (heart block, sick sinus syndrome, slow heart rate), severe circulation problems, severe heart failure, or a history of slow heartbeats that caused fainting. What is metoprolol? Metoprolol is a beta-cherelle that affects the heart and circulation (blood flow through arteries and veins). Metoprolol is used to treat angina (chest pain) and hypertension (high blood pressure). It is also used to lower your risk of or needing to be hospitalized for heart failure. Metoprolol injection is used during the early phase of a heart attack to lower the risk of . Metoprolol may also be used for other purposes not listed in this medication guide. What should I discuss with my healthcare provider before taking metoprolol? You should not use this medicine if you are allergic to metoprolol, or other beta-blockers (atenolol, carvedilol, labetalol, nadolol, nebivolol, propranolol, sotalol, and others), or if you have: a serious heart problem such as heart block, sick sinus syndrome, or slow heart rate; severe circulation problems; severe heart failure (that required you to be in the hospital); or a history of slow heart beats that have caused you to faint. Tell your doctor if you have ever had: asthma, chronic obstructive pulmonary disease (COPD), sleep apnea, or other breathing disorder; diabetes (taking metoprolol may make it harder for you to tell when you have low blood sugar); liver disease; congestive heart failure; problems with circulation (such as Raynaud's syndrome); a thyroid disorder; or pheochromocytoma (tumor of the adrenal gland). Do not give this medicine to a child without medical advice. Tell your doctor if you are or plan to become . It is not known whether metoprololwill harm an unborn baby. However, having high blood pressure during may cause complications such as diabetes or eclampsia (dangerously high blood pressure that can lead to medical problemsin both mother and baby). The benefit of treating hypertension may outweigh any risks to the baby. Ask a doctor before using this medicine if you are breast-feeding. Metoprolol can pass into breast milk and may cause dry skin, dry mouth, diarrhea, constipation, or slow heartbeats in your baby. How should I take metoprolol? Follow all directions on your prescription label and read all medication guides or instruction sheets. Your doctor may occasionally change your dose. Use the medicine exactly as directed. Metoprolol should be taken with a meal or just after a meal. Take the medicine at the same time each day. Swallow the capsule whole and do not crush, chew, break, or open it. A Toprol XL tablet can be divided in half if your doctor has told you to do so. Swallow the half-tablet whole, without chewing or crushing. Measure liquid medicine carefully. Use the dosing syringe provided, or use a medicine dose-measuring device (not a kitchen spoon). You will need frequent medical tests, and your blood pressure will need to be checked often. If you need surgery, tell the surgeon ahead of time that you are using metoprolol. You should not stop using metoprolol suddenly. Stopping suddenly may make your condition worse. If you have high blood pressure, keep using this medicine even if you feel well. High blood pressure often has no symptoms. You may need to use metoprolol for the rest of your life. Store at room temperature away from moisture and heat. Metoprolol injection is given as an infusion into a vein. A healthcare provider will give you this injection in a medical setting where your heart and blood pressure can be monitored. Metoprolol injections are given for only a short time before switching you to the oral form of this medicine. What happens if I miss a dose? Skip the missed dose and use your next dose at the regular time. Do not use two doses at one time. What happens if I overdose? Seek emergency medical attention or call the Poison Help line at . What should I avoid while taking metoprolol? Avoid driving or hazardous activity until you know how this medicine will affect you. Your reactions could be impaired. Drinking alcohol can increase certain side effects of metoprolol. What are the possible side effects of metoprolol? Get emergency medical help if you have signs of an allergic reaction: hives; difficulty breathing; swelling of your face, lips, tongue, or throat. Call your doctor at once if you have: very slow heartbeats; a light-headed feeling, like you might pass out; shortness of breath (even with mild exertion), swelling, rapid weight gain; or cold feeling in your hands and feet. Common side effects may include: dizziness, tired feeling; depression, confusion, memory problems; nightmares, trouble sleeping; diarrhea; or mild itching or rash. This is not a complete list of side effects and others may occur. Call your doctor for medical advice about side effects. You may report side effects to FDA at 2-935-WJX-6405. What other drugs will affect metoprolol? Tell your doctor about all your current medicines. Many drugs can affect metoprolol, especially: any other heart or blood pressure medications; epinephrine (Epi-Pen); an antidepressant; an ergot medicine--dihydroergotamine, ergonovine, ergotamine, methylergonovine; or an MAO inhibitor--isocarboxazid, linezolid, phenelzine, rasagiline, selegiline, tranylcypromine. This list is not complete and many other drugs may affect metoprolol. This includes prescription and avsg-mme-ntijxta medicines, vitamins, and herbal products. Not all possible drug interactions are listed here. Where can I get more information? Your pharmacist can provide more information about metoprolol. Remember, keep this and all other medicines out of the reach of children, never share your medicines with others, and use this medication only for the indication prescribed. Every effort has been made to ensure that the information provided by [employer]. ('[employer]') is accurate, up-to-date, and complete, but no guarantee is made to that effect. Drug information contained herein may be time sensitive. [employer] information has been compiled for use by healthcare practitioners and consumers in the [place] and therefore [employer] does not warrant that uses outside of the [place] are appropriate, unless specifically indicated otherwise. [employer] drug information does not endorse drugs, diagnose patients or recommend therapy. [employer] drug information isan informational resource designed to assist licensed healthcare practitioners in caring for their p atients and/or to serve consumers viewing this service as a supplement to, and not a substitute for, the expertise, skill, knowledge and judgment of healthcare practitioners. The absence of a warningfor a given drug or drug combination in no way should be construed to indicate that the drug or drug combination is safe, effective or appropriate for any given patient. [employer] does not assume any responsibility for any aspect of healthcare administered with the aid of information [employer] provides. The information contained herein is not intended to cover all possible uses, directions, precautions, warnings, drug interactions, allergic reactions, or adverse effects. If you have questions about the drugs you are taking, check with your doctor, nurse or pharmacist. Copyright 2122-0219 [employer]. Version: 19.. Revision Date: 05/31/2023. Education Materials HEART CATHETERIZATION/PCI (radial) Discharge Instructions DIET Drink plenty of fluids for the next 48 hours to help your kidneys flush the heart cath dye out of your system ACTIVITY For the next 48 hours: Do not deep bend the wrist Do not lift, push, or pull anything over 5 pounds Do not use the hand/arm to support your weight when rising from a chair or bed Do not drive For the next 7 days: Do not submerse your procedure site in water Do not swim, wash dishes, or take tub baths You may write, eat, type, and shower WOUND CARE Keep a Band-Aid on your procedure site for the next 3-4 days Change the Band-Aid daily or if it gets wet/soiled AFTER YOU GO HOME, CALL YOUR DOCTOR FOR: Any increase in bruising or tenderness from the procedure site Any redness, pus, or other signs of infection at the site A temperature above 100.5 Severe pain at the site DIAL 911 AND RETURN TO THE HOSPITAL FOR: Any bleeding from the procedure site. The site may be bruised or tender, but it should not be bleeding at any time. If your site begins to bleed, hold firm pressure on it and dial 911 to return to the hospital Any increase in swelling at the procedure site. An increase in swelling could mean the area is bleeding under the skin. Hold firm pressure to the site and dial 911 to return to the hospital Document Released: 10/09/2006 Document Revised: 09/25/2013 Document Reviewed: 10/10/2014 [facility] [place] Patient Information 2015 [email or web address]. This information is not intended to replace advicegiven to you by your health care provider. Make sure you discuss any questions you have with your health care provider. Acute Respiratory Failure, Adult Acute respiratory failure occurs when there is not enough oxygen passing from your lungs to your body. When this happens, your lungs have trouble removing carbon dioxide from the blood. This causes your blood oxygen level to drop too low as carbon dioxide builds up. Acute respiratory failure is a medical emergency. It can develop quickly, but it is temporary if treated promptly. Your lung capacity, or how much air your lungs can hold, may improve with time, exercise, and treatment. What are the causes? There are many possible causes of acute respiratory failure, including: Lung injury. Chest injury or damage to the ribs or tissues near the lungs. Lung conditions that affect the flow of air and blood into and out of the lungs, such as pneumonia,acute respiratory distress syndrome, and cystic fibrosis. Medical conditions, such as strokes or spinal cord injuries, that affect the muscles and nerves that control breathing. Blood infection (sepsis). Inflammation of the pancreas (pancreatitis). A blood clot in the lungs (pulmonary embolism). A large-volume blood transfusion. [place]. Near-drowning. Seizure. Smoke inhalation. Reaction to medicines. Alcohol or drug overdose. What increases the risk? This condition is more likely to develop in people who have: A blocked airway. Asthma. A condition or disease that damages or weakens the muscles, nerves, bones, or tissues that are involved in breathing. A serious infection. A health problem that blocks the unconscious reflex that is involved in breathing, such as hypothyroidism or sleep apnea. A lung injury or trauma. What are the signs or symptoms? Trouble breathing is the main symptom of acute respiratory failure. Symptoms may also include: Rapid breathing. Restlessness or anxiety. Skin, lips, or fingernails that appear blue (cyanosis). Rapid heart rate. Abnormal heart rhythms (arrhythmias). Confusion or changes in behavior. Tiredness or loss of energy. Feeling sleepy or having a loss of consciousness. How is this diagnosed? Your health care provider can diagnose acute respiratory failure with a medical history and physical exam. During the exam, your health care provider will listen to your heart and check for cracklingor wheezing sounds in your lungs. Your may also have tests to confirm the diagnosis and determine what is causing respiratory failure. These tests may include: Measuring the amount of oxygen in your blood (pulse oximetry). The measurement comes from a small device that is placed on your finger, earlobe, or toe. Other blood tests to measure blood gases and to look for signs of infection. Sampling your cerebral spinal fluid or tracheal fluid to check for infections. Chest X-ray to look for fluid in spaces that should be filled with air. Electrocardiogram (ECG) to look at the heart's electrical activity. How is this treated? Treatment for this condition usually takes places in a hospital intensive care unit (ICU). Treatment depends on what is causing the condition. It may include one or more treatments until your symptoms improve. Treatment may include: Supplemental oxygen. Extra oxygen is given through a tube in the nose, a face mask, or a ontiveros. A device such as a continuous positive airway pressure (CPAP) or bi-level positive airway pressure (BiPAP or BPAP) machine. This treatment uses mild air pressure to keep the airways open. A mask or other device will be placed over your nose or mouth. A tube that is connected to a motor will deliveroxygen through the mask. Ventilator. This treatment helps move air into and out of the lungs. This may be done with a bag and mask or a machine. For this treatment, a tube is placed in your windpipe (trachea) so air and oxygen can flow to the lungs. Extracorporeal membrane oxygenation (ECMO). This treatment temporarily takes over the function of the heart and lungs, supplying oxygen and removing carbon dioxide. ECMO gives the lungs a chance to recover. It may be used if a ventilator is not effective. Tracheostomy. This is a procedure that creates a hole in the neck to insert a breathing tube. Receiving fluids and medicines. Rocking the bed to help breathing. Follow these instructions at home: Take wthc-mep-kgpwlzw and prescription medicines only as told by your health care provider. Return to normal activities as told by your health care provider. Ask your health care provider what activities are safe for you. Keep all follow-up visits as told by your health care provider. This is important. How is this prevented? Treating infections and medical conditions that may lead to acute respiratory failure can help prevent the condition from developing. Contact a health care provider if: You have a fever. Your symptoms do not improve or they get worse. Get help right away if: You are having trouble breathing. You lose consciousness. Your have cyanosis or turn blue. You develop a rapid heart rate. You are confused. These symptoms may represent a serious problem that is an emergency. Do not wait to see if the symptoms will go away. Get medical help right away. Call your local emergency services (911 in the [place] Do not drive yourself to the hospital. This information is not intended to replace advice given to you by your health care provider. Make sure you discuss any questions you have with your health care provider. Document Released: 10/14/2014 Document Revised: 09/21/2018 Document Reviewed: 04/26/2017 [employer] Patient Education 2020 [employer]. Home Oxygen Use, Adult When a medical condition keeps you from getting enough oxygen, your health care provider may instruct you to take extra oxygen at home. Your health care provider will let you know: When to take oxygen. For how long to take oxygen. How quickly oxygen should be delivered (flow rate), in liters per minute (LPM or L/M). Home oxygen can be given through: A mask. A nasal cannula. This is a device or tube that goes in the nostrils. A transtracheal catheter. This is a small, flexible tube placed in the trachea. A tracheostomy. This is a surgically made opening in the trachea. These devices are connected with tubing to an oxygen source, such as: A tank. Tanks hold oxygen in gas form. They must be replaced when the oxygen is used up. A liquid oxygen device. This holds oxygen in liquid form. It must be replaced when the oxygen is used up. An oxygen concentrator machine. This filters oxygen in the room. It uses electricity, so you must have a backup cylinder of oxygen in case the power goes out. Supplies needed: To use oxygen, you will need: A mask, nasal cannula, transtracheal catheter, or tracheostomy. An oxygen tank, a liquid oxygen device, or an oxygen concentrator. The tape that your health care provider recommends (optional). If you use a transtracheal catheter and your prescribed flow rate is 1 LPM or greater, you will also need a humidifier. Risks and complications Fire. This can happen if the oxygen is exposed to a heat source, flame, or spark. Injury to skin. This can happen if liquid oxygen touches your skin. Organ damage. This can happen if you get too little oxygen. How to use oxygen Your health care provider or a business representative from your medical office receptionist assistant company will show you how touse your oxygen device. Follow her or his instructions. The instructions may look something like this: 1. Wash your hands. 2. If you use an oxygen concentrator, make sure it is plugged in. 3. Place one end of the tube into the port on the tank, device, or machine. 4. Place the mask over your nose and mouth. Or, place the nasal cannula and secure it with tape if instructed. If you use a tracheostomy or transtracheal catheter, connect it to the oxygen source as directed. 5. Make sure the liter-flow setting on the machine is at the level prescribed by your health care provider. 6. Turn on the machine or adjust the knob on the tank or device to the correct liter-flow setting. 7. When you are done, turn off and unplug the machine, or turn the knob to OFF. How to clean and care for the oxygen supplies Nasal cannula Clean it with a warm, wet cloth daily or as needed. Wash it with a liquid soap once a week. Rinse it thoroughly once or twice a week. Replace it every 2 4 weeks. If you have an infection, such as a cold or pneumonia, change the cannula when you get better. Mask Replace it every 2 4 weeks. If you have an infection, such as a cold or pneumonia, change the mask when you get better. Humidifier bottle Wash the bottle between each refill: ? Wash it with soap and warm water. ? Rinse it thoroughly. ? Disinfect it and its top. ? Air-dry it. Make sure it is dry before you refill it. Oxygen concentrator Clean the air filter at least twice a week according to directions from your home medical equipmentand service company. Wipe down the cabinet every day. To do this: ? Unplug the unit. ? Wipe down the cabinet with a damp cloth. ? Dry the cabinet. Other equipment Change any extra tubing every 1 3 months. Follow instructions from your health care provider about taking care of any other equipment. Safety tips Fire safety tips Keep your oxygen and oxygen supplies at least 5 ft away from sources of heat, flames, and laura atall times. Do not allow smoking near your oxygen. Put up no smoking signs in your home. Avoid smoking areas when in public. Do not use materials that can burn (are flammable) while you use oxygen. When you go to a restaurant with portable oxygen, ask to be seated in the nonsmoking section. Keep a fire extinguisher close by. Let your fire department know that you have oxygen in your home. Test your home smoke detectors regularly. Traveling Secure your oxygen tank in the vehicle so that it does not move around. Follow instructions from your medical office receptionist assistant company about how to safely secure your tank. Make sure you have enough oxygen for the amount of time you will be away from home. If you are planning air travel, contact the airline to find out if they allow the use of an approved portable oxygen concentrator. You may also need documents from your health care provider and medical office receptionist assistant company before you travel. General safety tips If you use an oxygen cylinder, make sure it is in a stand or secured to an object that will not move (fixed object). If you use liquid oxygen, make sure its container is kept upright. If you use an oxygen concentrator: ? Tell your [employer]. Make sure you are given priority service in the event that your power goes out. ? Avoid using extension cords, if possible. Follow these instructions at home: Use oxygen only as told by your health care provider. Do not use alcohol or other drugs that make you relax (sedating drugs) unless instructed. They can slow down your breathing rate and make it hard to get in enough oxygen. Know how and when to order a refill of oxygen. Always keep a spare tank of oxygen. Plan ahead for holidays when you may not be able to get a prescription filled. Use water-based lubricants on your lips or nostrils. Do not use oil-based products like petroleum jelly. To prevent skin irritation on your cheeks or behind your ears, tuck some gauze under the tubing. Contact a health care provider if: You get headaches often. You have shortness of breath. You have a lasting cough. You have anxiety. You are sleepy all the time. You develop an illness that affects your breathing. You cannot exercise at your regular level. You are restless. You have difficult or irregular breathing, and it is getting worse. You have a fever. You have persistent redness under your nose. Get help right away if: You are confused. You have blue lips or fingernails. You are struggling to breathe. Summary Your health care provider or a business representative from your medical office receptionist assistant company will show you how touse your oxygen device. Follow her or his instructions. If you use an oxygen concentrator, make sure it is plugged in. Make sure the liter-flow setting on the machine is at the level prescribed by your health care provider. Keep your oxygen and oxygen supplies at least 5 ft away from sources of heat, flames, and laura atall times. This information is not intended to replace advice given to you by your health care provider. Make sure you discuss any questions you have with your health care provider. Document Released: 12/29/2004 Document Revised: 03/28/2019 Document Reviewed: 05/02/2017 [employer] Patient Education 2020 [employer]. Additional Information VACCINATE! IT SAVES LIVES! Members of the community who have not yet received the COVID-19 vaccine and would like to receive it can visit one of [facility] vaccine clinics. There are many vaccine clinic locations within the [facility]. For locations and available times, please visit [email or web address].[place].gov/. It is important to note that some COVID mobile vaccine clinics are held outdoors and may be canceled in rainy or stormy conditions. To learn more about pediatric vaccinations (ages 5-11), we invite you to visit the [facility] webpage. [email or web address]/[email or web address] learn more about the COVID-19 vaccine, we invite you to visit the CDC website for a list of frequently asked questions.https://www.cdc.gov/coronavirus/2019-ncov/vaccines/faq.html [facility] Patient Portal Access Instructions: Stay connected with your healthcare team and access your personal medical information anytime with the [facility] Patient Portal. Please follow the directions below to create your [facility] account: 1.Access the email account you provided upon registration to the hospital/physician office.2.Look for an invitation email from [facility].3.Open the email and access the invitation link: [facility].4.Fill in the required lr to create your account. To access your account, visit [email or web address]. Click the blue button labeled Access Patient Portal and then log in with the username and password that you created in the steps above. You will be able to view your test results, lab results, a summary of your visits, upcoming appointments and more. There is also a convenient messaging option where you can send secure messages to your p rovider. In addition, you will have the ability to download any documents or summaries to your computer and/or send the information securely to a physician. Remember that your healthcare information is confidential, so carefully consider who you will allowto register on the [facility] Patient Portal for access to your information. You can also access the [facility] Patient Portal on the [facility]. Simply click on Patient Portal and then log into your account. If you would like to receive a full copy of your medical records, please contact the [facility] Medical Records Department by calling [phone], Monday through Monday between 8 a.m. and 4:30 p.m. HOW TO SAFELY DISPOSE OF PRESCRIPTION MEDICATIONS Please use one of the following methods to safely dispose of your unused medications. 1.Use a drug disposal kit: the drug disposal pouch allows you to safely discard your old and unuseddrugs. Ask your nurse to give you one when you are discharged.2.Visit a local take-back location: Many local pharmacies and police departments have programs that collect old and unwanted prescriptiondrugs. Call your local pharmacy or go to http://bit.ly/5M7Pm2f to find one close to you.3.Make use of household items: Use cat litter or old coffee grounds to dispose medications if other options arenot available. Mix your drugs with these household products, seal them in an airtight container andthrow it into the garbage. Call [facility]: [phone] to be sure your drugs can be disposed of in this way. Some medicines may require a different approach.4.Never flush your medications down the toilet. IF YOU HAVE BEEN PRESCRIBED AN OPIOID FOR PAIN If you have been prescribed an opioid (such as hydrocodone, oxycodone or morphine), it is critical to understand the possible side effects and risks of opioid pain medications. Even when taken as directed, opioids can have several side effects including: Tolerance, meaning you might need to take more of a medication for the same pain relief. Nausea, vomiting and/or constipation. Sleepiness, dizziness, dry mouth, confusion, depression or itching. Physical dependence, meaning you have withdrawal symptoms when a medication is stopped, can develop within a few days. KNOW YOUR RESPONSIBILITIES It is important to know exactly how much and how often to take the opioid pain medications you are prescribed. Never take opioids in higher amounts or more often than prescribed. Do not combine opioids with (more content not included)... [facility] [id number] Respiratory therapy Hospital Progress note Respiratory Therapy Evaluation Entered On: 09/06/2023 10:21 EST Performed On: 09/06/2023 10:21 EST by DESHAWN Cuenca Respiratory Therapy Evaluation Pulmonary Status : Severe chronic exacerbation Surgical Status : No surgeries Chest X-Ray : Infiltrates, atelectasis, pleural effusion Breath Sounds (RT) : Decreased bilaterally Respiratory Pattern (RT) : Regular RR=12-20 Cough (RT) : Strong, non-productive Respiratory Therapy Evaluation Score : 8 Level of Activity : Ambulatory Mental Status : Alert, oriented Respiratory Evaluation Triage Score : 4 - (6-10) Freq: TIDRT & Albuterol Q2hRT prn RT Assessment [Frequency/Schedule] : DESHAWN Ledbetter - 09/06/2023 10:21 EST Digitally Signed by DESHAWN Cuenca on 09/06/2023 10:21 AM [facility] [id number] Discharge summary Date of Service 09/06/23 Discharge Diagnosis Non-ST elevation (NSTEMI) myocardial infarction (I21.4 - ICD-10-CM) Acute respiratory failure with hypoxia (J96.01 - ICD-10-CM) Chronic obstructive pulmonary disease with (acute) exacerbation (J44.1 - ICD-10-CM) Takotsubo syndrome (I51.81 - ICD-10-CM) Bipolar disorder, unspecified (F31.9 - ICD-10-CM) Tobacco use (Z72.0 - ICD-10-CM) Gastro-esophageal reflux disease without esophagitis (K21.9 - ICD-10-CM) Anxiety disorder, unspecified (F41.9 - ICD-10-CM) Personal history of suicidal behavior (Z91.51 - ICD-10-CM) Personality disorder, unspecified (F60.9 - ICD-10-CM) Other specified abnormal findings of blood chemistry (R79.89 - ICD-10-CM) Elevation of levels of lactic acid dehydrogenase [LDH] (R74.02 - ICD-10-CM) Abnormal levels of other serum enzymes (R74.8 - ICD-10-CM) Atherosclerotic heart disease of [place] coronary artery without angina pectoris (I25.10 - ICD-10-CM) Presence of coronary angioplasty implant and graft (Z95.5 - ICD-10-CM) Disorientation, unspecified (R41.0 - ICD-10-CM) Hypertensive heart disease with heart failure (I11.0 - ICD-10-CM) Hyperlipidemia, unspecified (E78.5 - ICD-10-CM) Heart failure, unspecified (I50.9 - ICD-10-CM) Additional Orders: Ordered: Discharge,09/06/23 10:06:00 EST, Discharged to: Home Ordered: Entresto 24 mg-26 mg oral tablet,Dose = 1 tab(s), Oral, BID, # 60 tab(s), 3 Refill(s), Pharmacy: [facility], 157.5, cm, 09/02/23 6:47:00 EST, Height, kg, 09/02/23 6:47:00 EST, Dosing Weight Other status: Lasix,Start: 09/06/23 9:00:00 EST, Dose = 40 mg, = 1 tab(s), Oral, qDay, 09/06/23 9:00:00 EST(Cancel) Ordered: Lasix,Start: 09/06/23 9:00:00 EST, Dose = 20 mg, = 1 tab(s), Oral, qDay, 09/06/23 8:28:00 EST Ordered: Lasix 20 mg oral tablet,Dose : 20 mg = 1 tab(s), Oral, qDay, # 30 tab(s), 3 Refill(s), Pharmacy: [facility], 157.5, cm, 09/02/23 6:47:00 EST, Height, kg, 09/02/23 6:47:00 EST, Dosing Weight Ordered: Plavix 75 mg oral tablet,Dose : 75 mg = 1 tab(s), Oral, qDay, # 30 tab(s), 3 Refill(s), Pharmacy: [facility], 157.5, cm, 09/02/23 6:47:00 EST, Height, kg, 09/02/23 6:47:00 EST, Dosing Weight Other status: Resting Pulse Ox on Room Air for Home O2 Qualification,09/06/23 8:12:00 EST, Once(Complete) Ordered: Trelegy Ellipta 100 mcg-62.5 mcg-25 mcg/inh inhalation powder,Dose = 1 puff(s), Inhalation, qDay, at the same time every day. Following administration, rinse mouth with water after use (do not swallow)., # 60 EA, 3 Refill(s), Pharmacy: [facility], 157.5, cm, 09/02/23 6:47:00 EST, Height, kg, 09/02/23... Ordered: albuterol MDI (90 mcg/inh) CFC free inhalation aerosol,1 puff(s), Inhalation, q4h, PRN as needed for wheezing, # 8.5 gram(s), 3 Refill(s), Pharmacy: [facility], 157.5, cm, 09/02/23 6:47:00 EST, Height, kg, 09/02/23 6:47:00 EST, Dosing Weight Discontinued: losartan,Start: 09/04/23 11:43:00 EST, Dose = 25 mg, = 1 tab(s), Oral, qDay, 09/04/2311:43:00 EST Discontinued: losartan 25 mg oral tablet,Dose : 25 mg = 1 tab(s), Oral, qDay, # 30 tab(s), 3 Refill(s), Pharmacy: [facility], 157.5, cm, 09/02/23 6:47:00 EST, Height, kg, 09/02/23 6:47:00 EST, Dosing Weight Ordered: metoprolol succinate 25 mg oral TABLET extended release,Dose : 25 mg = 1 tab(s), Oral, BIDM, # 60 tab(s), 3 Refill(s), Pharmacy: [facility], 157.5, cm, 09/02/23 6:47:00 EST, Height, kg, 09/02/23 6:47:00 EST, Dosing Weight Ordered: rosuvastatin 20 mg oral tablet,Dose : 40 mg = 2 tab(s), Oral, qDay, # 60 tab(s), 3 Refill(s), Pharmacy: [facility], 157.5, cm, 09/02/23 6:47:00 EST, Height, kg, 09/02/23 6:47:00 EST, Dosing Weight Hospital Course 68-year-old female with a significant past medical history of CAD s/p PCI (vessels unknown however patient states 2 stents in late ), history of COPD, bipolar disorder, tobacco abuse, GERD, anxiety, depression, history of suicide attempt in the past (2010), and personality disorder who presented from outside hospital with shortness of breath. Patient presented to outside hospital with shortness of breath and subsequently intubated with concerns for Respiratory failure secondary to COPD versus CHF. On arrival to the MICU patient was mechanical ventilation support. Labs demonstrated elevated proBNP (5863), elevated lactic acid levels (2.5), elevated high-sensitivity troponin levels (900 --> 1500--> 2000--> 3000 --> 2200 --> 1800), elevated LFT. Chest x-ray shows emphysematous changes with no edema. ECG reviewed demonstrating sinus rhythm with frequent PACs and mild ST elevations in the anteroseptal leads. Most recent ECG demonstrates repolarization changes significant for ischemia. Patient placed on aspirin and heparin drip. General cardiology consulted for further assistance in management. Patient underwent left heart cath, results personally reviewed along with TTE, RWMA abnormality with septal hypokinesis, distal LAD disease along with OM and Lcx which will be medically managed. She was diuresed with IV lasix until euvolemia was achieved. LHC findings in conjunction with TTE favorsTakotsubo's cardiomyopathy. Her is CAD will be medically managed with DAPT (ASA and plavix therapy). For her reduced EF, we started her on GDMT. She will require home oxygen, repeat TTE in 3 months. Allergies NKA Procedures Cardiac catheterization without intervention Consults Consult to Physician - Ordered -- 09/03/23 15:17:00 SHIV, ROSINA BRO MD, Routine, Delirium Imaging Results and Diagnostics XR Chest 1 View Result Date: September 04, 2023 Verified By: SHAHIDA GALICIA MD CLINICAL STATEMENT: IMPRESSION: Small bilateral effusions with chronic opacities throughout the lungsbilaterally. US Abdomen Limited Result Date: September 02, 2023 Verified By: DOUG CARMONA MD CLINICAL STATEMENT: IMPRESSION: Sonographically normal liver. Trace perihepatic and pericholecystic fluid.Small right pleural effusion. XR Chest 1 View Result Date: September 02, 2023 Verified By: SHAHIDA GALICIA MD CLINICAL STATEMENT: IMPRESSION: Support devices as above. Emphysematous changes. No focal consolidation or edema. I have personally reviewed the images of this examination and agree with theresident's findings and interpretation. Objective Vitals and Measurements T: 36.6 C (Oral) TMIN: 36.4 C (Oral) TMAX: 36.8 C (Oral) HR: 66(Apical) RR: 20 BP: 136/74 SpO2: 94% Weight Current Weight Dosing Weight: 45.9 kg (09/03/23) Current Weight: 43.1 kg (09/05/23) General Appearance: NAD Head: NCAT EENT: no gross abnormalities Neck: no JVD appreciated Cardiac: NS1S2 Lungs: CTAB Abdomen: soft, NT/ND Musculoskeletal: ROM wnl Extremities: no pitting edema Neurological: no focal deficits Skin: warm, dry Psychiatric: normal mentation Code Status Code Status - Ordered -- 09/02/23 6:38:00 EST, Full Code, Constant Order Admission Date 09/02/23 Discharge Date 09/06/23 Medications New Prescription albuterol (albuterol MDI (90 mcg/inh) CFC free inhalation aerosol)1 puff(s) by inhalation every 4 hours as needed as needed for wheezing. Refills: 3. clopidogrel (Plavix 75 mg oral tablet)1 tab(s) by mouth once a day. Refills: 3. fluticasone/umeclidinium/vilanterol (Trelegy Ellipta 100 mcg-62.5 mcg-25 mcg/inh inhalation powder)1 puff(s) by inhalation once a day. at the same time every day. Following administration, rinse mouth with water after use (do not swallow).. Refills: 3. furosemide (Lasix 20 mg oral tablet)1 tab(s) by mouth once a day. Refills: 3. metoprolol (metoprolol succinate 25 mg oral TABLET extended release)1 tab(s) by mouth twice daily with meals. Refills: 3. rosuvastatin (rosuvastatin 20 mg oral tablet)2 tab(s) by mouth once a day. Refills: 3. sacubitril-valsartan (Entresto 24 mg-26 mg oral tablet)1 tab(s) by mouth two (2) times a day. Refills: 3. Unchanged aspirin (aspirin 81 mg oral delayed release tablet)1 tab(s) by mouth every day. buPROPion (Wellbutrin SR)100 Milligram by mouth once a day. oxcarbazepine (Trileptal)150 Milligram by mouth daily at bedtime. Follow Up Follow Up with ASTRID ROBERT MD When 09/13/2023 03:00 PM EST Where: [address] [facility] [place] [address]- [phone] Follow Up with SAMMIE ZARAGOZA MD When Within 5 to 7 days Where: [address] [address] [place] [address]- [phone] Follow Up with [facility] will contact you for an appointment If you have any questionsplease call:[phone]. When Where: Follow Up Appointments No qualifying data available. Follow Up Labs/Studies Discharge Labs No Follow-up Labs Discharge Studies No Follow-up Studies Discharge Diet No qualifying data available. Discharge Activity No qualifying data available. Readmission Risk/Palliative Score LACE Score: 11 (09/04/23 12:59:00) Palliative Total Score: 1 (09/04/23 13:00:00) Digitally Signed by CARLOS NOONAN MD on 09/06/2023 10:20 AM [facility] [id number] Cardiology Progress note Subjective No acute overnight events, patient relays improvement in her breathing with breathing treatments Objective Vitals and Measurements T: 36.7 C (Oral) TMIN: 36.4 C (Oral) TMAX: 36.7 C (Oral) HR: 63(Monitored) RR: 18 BP: 150/80 SpO2: 95% WT: 43.1 kg Intake and Output 7AM Yesterday to 7AM Today Intake and Output (Last 24 hours) Intake Oral Intake 890.00 Output Urinary Catheter Output: 950.00 Total Summary Total Intake 890.00 Total Output 950.00 Fluid Balance -60.00 Physical Exam General Appearance: NAD Head: NCAT EENT: no gross abnormalities Neck: no JVD appreciated Cardiac: NS1S2 Lungs: expiratory wheezing b/l Abdomen: soft, NT/ND Musculoskeletal: ROM wnl Extremities: no pitting edema Neurological: no focal deficits Skin: warm, dry Psychiatric: normal mentation Weight Current Weight Dosing Weight: 45.9 kg (09/03/23) Current Weight: 43.1 kg (09/05/23) Medications Medications (20) Active Scheduled: (12) albuterol - ipratropium 2.5 mg-0.5 mg/3 mL Inhal Smiley UD 3 mL, Inhalation, QIDRT aspirin 81 mg Chewable 81 mg 1 tab(s), Oral, Daily budesonide 0.5 mg/2 mL Susp UD 0.5 mg 2 mL, Inhalation, BIDRT bupropion 100 mg / 12hr SR tablet 100 mg 1 tab(s), Oral, qDay clopidogrel 75 mg Tablet 75 mg 1 tab(s), Oral, qDay furosemide 40 mg tablet 40 mg 1 tab(s), Oral, qDay losartan 25 mg tablet 25 mg 1 tab(s), Oral, qDay metoprolol succinate 25 mg ER tablet 25 mg 1 tab(s), Oral, BIDM No metformin for 48 hrs post contrast 1 EA, Miscellaneous, Unscheduled oxcarbazepine 150 mg tablet 150 mg 1 tab(s), Oral, qHS rosuvastatin 20 mg tablet 40 mg 2 tab(s), Oral, qDay sacubitril-valsartan 24-26 mg oral tablet 1 tab(s), Oral, BID Continuous: (1) insulin regular 100 unit(s) + NS Premix Diluent 100 mL 100 mL, Intravenous PRN: (7) albuterol - ipratropium 2.5 mg-0.5 mg/3 mL Inhal Smiley UD 3 mL, Inhalation, q2hRT albuterol 90 mcg/inh HFA Inhaler 180 mcg 2 puff(s), Inhalation, QIDRT dextrose 50% Solution Disp syringe 50 mL 12.5 gram(s) 25 mL, IV Push, AsDirected dextrose 50% Solution Disp syringe 50 mL 25 g 50 mL, IV Push, AsDirected insulin regular human recombinant 100 units/mL (3 mL) Soln sliding scale insulin, Subcutaneous, q4h morphine 2 mg/mL 1 mL syringe 2 mg 1 mL, IV Push, q4h ondansetron 4 mg DIS tablet 4 mg 1 tab(s), Oral, q6h Lab Results 09/05 02:59 WBC: 7.0 Hgb: 12.3 Hct: 36.4 Platelet: 278 Neutrophil %: 56.2 Glucose Level: 87 Sodium Level: 136 Potassium Level: 3.6 BUN: 18.0 Creatinine Lvl (s): 0.89 09/04 08:55 WBC: 8.5 Hgb: 12.8 Hct: 37.8 Platelet: 281 Neutrophil %: 63.2 Glucose Level: 134 H Sodium Level: 133 L Potassium Level: 3.1 L BUN: 18.0 Creatinine Lvl (s): 0.78 EKG No qualifying data available. Assessment/Plan Orders: furosemide, Start: 09/06/23 9:00:00 EST, Dose = 40 mg, = 1 tab(s), Oral, qDay, 09/06/23 9:00:00 EST sacubitril-valsartan, Start: 09/05/23 17:00:00 EST, Dose = 1 tab(s), Tab, Oral, BID, 09/05/23 17:00:00 EST Shortness of breath Acute proximal respiratory failure Elevated lactic acid levels-resolved Non-ischemic cardiomyopathy, presumably Takotsubo's Elevated Troponins Elevated LFT CAD s/p PCI RCA and LAD with ISR 50% RCA COPD Bipolar disorder Tobacco abuse GERD Anxiety Depression History of suicide attempt (2010) Personality disorder Plan: Patient presenting with acute hypoxic respiratory failure thought to be due to COPD versus CHF exacerbation. C results personally reviewed along with TTE, RWMA abnormality with septal hypokinesis, distal LAD disease along with OM and Lcx which will be medically managed. Patient euvolemic, transition to PO lasix. LHC findings in conjunction with TTE favors Takotsubo's cardiomyopathy. Her is CAD will be medically managed with DAPT (ASA and plavix therapy) Will Cont. crestor, switch to entresto Cont. Metoprolol Digitally Signed by CARLOS NOONAN MD on 09/05/2023 03:29 PM [facility] [id number] Cardiology Progress note Subjective No acute overnight events, patient still requiring supplemental O2. Denies any chest pain. Objective Vitals and Measurements T: 36.8 C (Oral) TMIN: 36.5 C (Oral) TMAX: 36.8 C (Oral) HR: 74(Monitored) RR: 16 BP: 182/98 SpO2: 97% Intake and Output 7AM Yesterday to 7AM Today Intake and Output (Last 24 hours) Intake Supplement Intake 0.00 Output Urinary Catheter Output: 1425.00 Total Summary Total Intake 0.00 Total Output 1425.00 Fluid Balance -1425.00 Physical Exam General Appearance: NAD Head: NCAT EENT: no gross abnormalities Neck: no JVD appreciated Cardiac: NS1S2 Lungs: CTAB Abdomen: soft, NT/ND Musculoskeletal: ROM wnl Extremities: no pitting edema Neurological: no focal deficits Skin: warm, dry Psychiatric: normal mentation Weight Dosing Weight: 45.9 kg (09/03/23) Medications Medications (20) Active Scheduled: (11) albuterol - ipratropium 2.5 mg-0.5 mg/3 mL Inhal Smiley UD 3 mL, Inhalation, QIDRT aspirin 81 mg Chewable 81 mg 1 tab(s), Oral, Daily budesonide 0.5 mg/2 mL Susp UD 0.5 mg 2 mL, Inhalation, BIDRT bupropion 100 mg / 12hr SR tablet 100 mg 1 tab(s), Oral, qDay clopidogrel 75 mg Tablet 75 mg 1 tab(s), Oral, qDay furosemide 40 mg/4 mL vial 40 mg 4 mL, IV Push, BID losartan 25 mg tablet 25 mg 1 tab(s), Oral, qDay metoprolol succinate 25 mg ER tablet 25 mg 1 tab(s), Oral, BIDM No metformin for 48 hrs post contrast 1 EA, Miscellaneous, Unscheduled oxcarbazepine 150 mg tablet 150 mg 1 tab(s), Oral, qHS rosuvastatin 20 mg tablet 40 mg 2 tab(s), Oral, qDay Continuous: (1) insulin regular 100 unit(s) + NS Premix Diluent 100 mL 100 mL, Intravenous PRN: (8) albuterol - ipratropium 2.5 mg-0.5 mg/3 mL Inhal Smiley UD 3 mL, Inhalation, q2hRT albuterol 90 mcg/inh HFA Inhaler 180 mcg 2 puff(s), Inhalation, QIDRT dextrose 50% Solution Disp syringe 50 mL 12.5 gram(s) 25 mL, IV Push, AsDirected dextrose 50% Solution Disp syringe 50 mL 25 g 50 mL, IV Push, AsDirected heparin 5,000 units/mL (1 mL) vial 2,754 unit(s) 0.55 mL, IV Push, q6h insulin regular human recombinant 100 units/mL (3 mL) Soln sliding scale insulin, Subcutaneous, q4h morphine 2 mg/mL 1 mL syringe 2 mg 1 mL, IV Push, q4h ondansetron 4 mg DIS tablet 4 mg 1 tab(s), Oral, q6h Lab Results 09/04 08:55 WBC: 8.5 Hgb: 12.8 Hct: 37.8 Platelet: 281 Neutrophil %: 63.2 Glucose Level: 134 H Sodium Level: 133 L Potassium Level: 3.1 L BUN: 18.0 Creatinine Lvl (s): 0.78 09/03 02:43 WBC: 9.8 Hgb: 12.3 Hct: 36.6 Platelet: 274 Neutrophil %: 67.5 Glucose Level: 110 Sodium Level: 140 Potassium Level: 3.8 BUN: 27.0 H Creatinine Lvl (s): 0.98 EKG EKG - Completed -- 09/02/23 10:58:00 EST, Unless 2 EKGs already done in the past 6 hours EKG - Completed -- 09/02/23 13:58:00 EST EKG - Completed -- 09/02/23 18:35:00 EST EKG - Completed -- 09/03/23 6:00:00 EST Assessment/Plan Orders: furosemide, Start: 09/04/23 9:45:00 EST, Dose = 40 mg, = 4 mL, IV Push, BID, 0, 09/04/23 9:45:00 EST losartan, Start: 09/04/23 11:43:00 EST, Dose = 25 mg, = 1 tab(s), Oral, qDay, 09/04/23 11:43:00 EST rosuvastatin, Start: 09/04/23 22:00:00 EST, Dose = 40 mg, = 2 tab(s), Oral, qDay, 09/04/23 11:42:00EST Basic Metabolic Panel Complete Blood Count Consult to Physician Magnesium Level Shortness of breath Acute proximal respiratory failure Elevated lactic acid levels-resolved Non-ischemic cardiomyopathy, presumably Takotsubo's Elevated Troponins Elevated LFT CAD s/p PCI RCA and LAD with ISR 50% RCA COPD Bipolar disorder Tobacco abuse GERD Anxiety Depression History of suicide attempt (2010) Personality disorder Plan: Patient presenting with acute hypoxic respiratory failure thought to be due to COPD versus CHF exacerbation. LHC results personally reviewed along with TTE, RWMA abnormality with septal hypokinesis, distal LAD disease along with OM and Lcx which will be medically managed. IVC is 2.4cm without >50% collapsability suggesting 15 estimate RA pressure. Will continue diuresis with IV lasix. LHC findings in conjunction with TTE favors Takotsubo's cardiomyopathy. Her is CAD will be medically managed with DAPT (ASA and plavix therapy) Will initiate crestor, losartan Cont. Metoprolol Digitally Signed by CARLOS NOONAN MD on 09/04/2023 12:03 PM Digitally Signed by CARLOS NOONAN MD on 09/04/2023 12:14 PM [facility] [id number] Note Date of Service 09/04/2023 Chief Complaint Weakness Subjective Patient evaluated at bedside, no chest pain. Mild shortness of breath. Noted to be alert, oriented to person, place, time, situation. No agitation noted on exam. Is tolerating oral intake. Objective Vitals and Measurements T: 36.8 C (Oral) TMIN: 36.5 C (Oral) TMAX: 36.8 C (Oral) HR: 74(Monitored) RR: 16 BP: 182/98 SpO2: 97% Intake and Output 7AM Yesterday to 7AM Today Intake and Output (Last 24 hours) Intake Supplement Intake 0.00 Output Urinary Catheter Output: 1775.00 Total Summary Total Intake 0.00 Total Output 1775.00 Fluid Balance -1775.00 Physical Exam Physical Exam General: Alert, appropriate and awake, oriented to time, people and place Skin: No rash. Warm, Dry, Intact HEENT: Head is normocephalic and atraumatic. No lesions. Pupils equal in size. Extraocular movements within normal limits. Nose: No septal deviation. Mouth: Oropharynx mucosa is without lesion. Neck: Supple. No lymphadenopathy, thyromegaly noted. Lungs: Bilaterally clear/diminished breath sounds with no crepitation or wheeze. Unlabored Cardiovascular: Heart is regular rhythm, S1S2, No extra-audible heart tones Abdomen: Abdomen is soft, nontender. Bowel sounds positive all four quadrants. Extremities: No clubbing, cyanosis or edema. Peripheral pulses palpable. No calf tenderness. Adequate peripheral circulation. Neurological: Following simple commands, moving all extremities. Weight Dosing Weight: 45.9 kg (09/03/23) Medications Medications (20) Active Scheduled: (10) albuterol - ipratropium 2.5 mg-0.5 mg/3 mL Inhal Smiley UD 3 mL, Inhalation, QIDRT aspirin 81 mg Chewable 81 mg 1 tab(s), Oral, Daily budesonide 0.5 mg/2 mL Susp UD 0.5 mg 2 mL, Inhalation, BIDRT bupropion 100 mg / 12hr SR tablet 100 mg 1 tab(s), Oral, qDay clopidogrel 75 mg Tablet 75 mg 1 tab(s), Oral, qDay furosemide 40 mg/4 mL vial 40 mg 4 mL, IV Push, BID metoprolol succinate 25 mg ER tablet 25 mg 1 tab(s), Oral, BIDM No metformin for 48 hrs post contrast 1 EA, Miscellaneous, Unscheduled oxcarbazepine 150 mg tablet 150 mg 1 tab(s), Oral, qHS potassium chloride 20 mEq ER tablet 60 mEq 3 tab(s), Oral, Once Continuous: (2) heparin 25,000 unit(s) [12 unit(s)/kg/hr] + Dextrose 5% Premix Diluent 250 mL 250 mL, Intravenous, 5.51 mL/hr insulin regular 100 unit(s) + NS Premix Diluent 100 mL 100 mL, Intravenous PRN: (8) albuterol - ipratropium 2.5 mg-0.5 mg/3 mL Inhal Smiley UD 3 mL, Inhalation, q2hRT albuterol 90 mcg/inh HFA Inhaler 180 mcg 2 puff(s), Inhalation, QIDRT dextrose 50% Solution Disp syringe 50 mL 12.5 gram(s) 25 mL, IV Push, AsDirected dextrose 50% Solution Disp syringe 50 mL 25 g 50 mL, IV Push, AsDirected heparin 5,000 units/mL (1 mL) vial 2,754 unit(s) 0.55 mL, IV Push, q6h insulin regular human recombinant 100 units/mL (3 mL) Soln sliding scale insulin, Subcutaneous, q4h morphine 2 mg/mL 1 mL syringe 2 mg 1 mL, IV Push, q4h ondansetron 4 mg DIS tablet 4 mg 1 tab(s), Oral, q6h Lab Results 09/04 08:55 WBC: 8.5 Hgb: 12.8 Hct: 37.8 Platelet: 281 Neutrophil %: 63.2 Glucose Level: 134 H Sodium Level: 133 L Potassium Level: 3.1 L BUN: 18.0 Creatinine Lvl (s): 0.78 09/03 02:43 WBC: 9.8 Hgb: 12.3 Hct: 36.6 Platelet: 274 Neutrophil %: 67.5 Glucose Level: 110 Sodium Level: 140 Potassium Level: 3.8 BUN: 27.0 H Creatinine Lvl (s): 0.98 EKG EKG - Completed -- 09/02/23 10:58:00 EST, Unless 2 EKGs already done in the past 6 hours EKG - Completed -- 09/02/23 13:58:00 EST EKG - Completed -- 09/02/23 18:35:00 EST EKG - Completed -- 09/03/23 6:00:00 EST Assessment/Plan 1. Delirium 2. NSTEMI 3. History of COPD 4. Acute on chronic heart failure with preserved ejection fraction 5. History of bipolar disorder 6. History of tobacco abuse 7. History of anxiety/depression Hospitalist team consulted for acute delirium status post self extubation. Noted to be alert and oriented x4, no agitation on exam. This has resolved. NSTEMI status post left heart cath, found to have moderate to severe coronary artery disease. Stenting was unsuccessful. To continue on medical management per primary team. History of COPD, not in acute exacerbation. Acute on chronic heart failure with preserved ejection fraction, EF on left heart cath noted to be 50%. On IV Lasix per primary team. History of bipolar disorder, continue Trileptal. History of tobacco abuse, patient refused nicotine patch. Recommend cessation. History of anxiety/depression, continue Wellbutrin. Delirium has resolved, hospitalist team will sign off. Discussed with patient at bedside, discussed with Dr. Duong. Time Spent Total time spent reviewing labs, diagnostics, evaluating the patient, and medical decision makin minutes Digitally Signed by ROSY MORALEZ on 09/04/2023 11:39 AM Digitally Signed by ROSY MORALEZ on 09/04/2023 02:58 PM [facility] [id number] Pulmonary Progress note Date of Service 09/04/2023 Subjective Patient had a heart cath today. No stents were placed according to her. States that her breathing is doing a bit better, though she continues to wear 4 L nasal cannula Objective Vitals and Measurements T: 36.8 C (Oral) TMIN: 36.5 C (Oral) TMAX: 36.8 C (Oral) HR: 74(Monitored) RR: 16 BP: 166/64 SpO2: 97% Intake and Output 7AM Yesterday to 7AM Today Intake and Output (Last 24 hours) Intake Supplement Intake 0.00 Output Urinary Catheter Output: 1275.00 Total Summary Total Intake 0.00 Total Output 1275.00 Fluid Balance -1275.00 Physical Exam General: in bed, mild distress, cachectic appearing HEENT: PERRL, EOMI, MM moist Neck: supple Chest: lungs crackles bilaterally Heart: RRR nl s1 s2 Abdomen: + BS, soft, nontender Extremities: no CCE Neuro: Alert, nonfocal Skin: warm, dry Psych: no anxiety Weight Dosing Weight: 45.9 kg (09/03/23) Medications Medications (19) Active Scheduled: (11) albuterol - ipratropium 2.5 mg-0.5 mg/3 mL Inhal Smiley UD 3 mL, Inhalation, QIDRT aspirin 81 mg Chewable 81 mg 1 tab(s), Oral, Daily budesonide 0.5 mg/2 mL Susp UD 0.5 mg 2 mL, Inhalation, BIDRT bupropion 100 mg / 12hr SR tablet 100 mg 1 tab(s), Oral, qDay clopidogrel 75 mg Tablet 75 mg 1 tab(s), Oral, qDay furosemide 40 mg/4 mL vial 40 mg 4 mL, IV Push, BID losartan 25 mg tablet 25 mg 1 tab(s), Oral, qDay metoprolol succinate 25 mg ER tablet 25 mg 1 tab(s), Oral, BIDM No metformin for 48 hrs post contrast 1 EA, Miscellaneous, Unscheduled oxcarbazepine 150 mg tablet 150 mg 1 tab(s), Oral, qHS rosuvastatin 20 mg tablet 40 mg 2 tab(s), Oral, qDay Continuous: (1) insulin regular 100 unit(s) + NS Premix Diluent 100 mL 100 mL, Intravenous PRN: (7) albuterol - ipratropium 2.5 mg-0.5 mg/3 mL Inhal Smiley UD 3 mL, Inhalation, q2hRT albuterol 90 mcg/inh HFA Inhaler 180 mcg 2 puff(s), Inhalation, QIDRT dextrose 50% Solution Disp syringe 50 mL 12.5 gram(s) 25 mL, IV Push, AsDirected dextrose 50% Solution Disp syringe 50 mL 25 g 50 mL, IV Push, AsDirected insulin regular human recombinant 100 units/mL (3 mL) Soln sliding scale insulin, Subcutaneous, q4h morphine 2 mg/mL 1 mL syringe 2 mg 1 mL, IV Push, q4h ondansetron 4 mg DIS tablet 4 mg 1 tab(s), Oral, q6h Lab Results 09/04 08:55 WBC: 8.5 Hgb: 12.8 Hct: 37.8 Platelet: 281 Neutrophil %: 63.2 Glucose Level: 134 H Sodium Level: 133 L Potassium Level: 3.1 L BUN: 18.0 Creatinine Lvl (s): 0.78 09/03 02:43 WBC: 9.8 Hgb: 12.3 Hct: 36.6 Platelet: 274 Neutrophil %: 67.5 Glucose Level: 110 Sodium Level: 140 Potassium Level: 3.8 BUN: 27.0 H Creatinine Lvl (s): 0.98 EKG EKG - Completed -- 09/02/23 10:58:00 EST, Unless 2 EKGs already done in the past 6 hours EKG - Completed -- 09/02/23 13:58:00 EST EKG - Completed -- 09/02/23 18:35:00 EST EKG - Completed -- 09/03/23 6:00:00 EST Assessment/Plan Assessment 1. Acute mixed respite failures of mechanical ventilations, on 4 L of oxygen per nasal cannula 2. History of chronic obstructive pulm disease without evidence of acute chest infection or acute exacerbation of COPD. 3. Acute coronary syndrome, patient is known history of coronary disease 4. pulmonary edema., Improved 5. Other comorbidity including active tobacco use, bipolar disorder. Plan: 1. Wean oxygen as tolerated. 2. Continue IV heparin, aspirin, increase metoprolol to 25 mg p.o. twice daily, cardiac catheterization per cardiology completed 3. Bronchodilators. 4. Protonix for GI prophylaxis. 5. Sounds like she may have some pulmonary edema on exam. Agree with diuresis Sammie Zaragoza M.D., [facility] Digitally Signed by SAMMIE ZARAGOZA MD on 09/04/2023 01:22 PM [facility] [id number] Cardiology Progress note Subjective No acute overnight events, patient still requiring supplemental O2. Denies any chest pain. Objective Vitals and Measurements T: 36.8 C (Oral) TMIN: 36.5 C (Oral) TMAX: 36.8 C (Oral) HR: 74(Monitored) RR: 16 BP: 182/98 SpO2: 97% Intake and Output 7AM Yesterday to 7AM Today Intake and Output (Last 24 hours) Intake Supplement Intake 0.00 Output Urinary Catheter Output: 1425.00 Total Summary Total Intake 0.00 Total Output 1425.00 Fluid Balance -1425.00 Physical Exam General Appearance: NAD Head: NCAT EENT: no gross abnormalities Neck: no JVD appreciated Cardiac: NS1S2 Lungs: CTAB Abdomen: soft, NT/ND Musculoskeletal: ROM wnl Extremities: no pitting edema Neurological: no focal deficits Skin: warm, dry Psychiatric: normal mentation Weight Dosing Weight: 45.9 kg (09/03/23) Medications Medications (20) Active Scheduled: (11) albuterol - ipratropium 2.5 mg-0.5 mg/3 mL Inhal Smiley UD 3 mL, Inhalation, QIDRT aspirin 81 mg Chewable 81 mg 1 tab(s), Oral, Daily budesonide 0.5 mg/2 mL Susp UD 0.5 mg 2 mL, Inhalation, BIDRT bupropion 100 mg / 12hr SR tablet 100 mg 1 tab(s), Oral, qDay clopidogrel 75 mg Tablet 75 mg 1 tab(s), Oral, qDay furosemide 40 mg/4 mL vial 40 mg 4 mL, IV Push, BID losartan 25 mg tablet 25 mg 1 tab(s), Oral, qDay metoprolol succinate 25 mg ER tablet 25 mg 1 tab(s), Oral, BIDM No metformin for 48 hrs post contrast 1 EA, Miscellaneous, Unscheduled oxcarbazepine 150 mg tablet 150 mg 1 tab(s), Oral, qHS rosuvastatin 20 mg tablet 40 mg 2 tab(s), Oral, qDay Continuous: (1) insulin regular 100 unit(s) + NS Premix Diluent 100 mL 100 mL, Intravenous PRN: (8) albuterol - ipratropium 2.5 mg-0.5 mg/3 mL Inhal Smiley UD 3 mL, Inhalation, q2hRT albuterol 90 mcg/inh HFA Inhaler 180 mcg 2 puff(s), Inhalation, QIDRT dextrose 50% Solution Disp syringe 50 mL 12.5 gram(s) 25 mL, IV Push, AsDirected dextrose 50% Solution Disp syringe 50 mL 25 g 50 mL, IV Push, AsDirected heparin 5,000 units/mL (1 mL) vial 2,754 unit(s) 0.55 mL, IV Push, q6h insulin regular human recombinant 100 units/mL (3 mL) Soln sliding scale insulin, Subcutaneous, q4h morphine 2 mg/mL 1 mL syringe 2 mg 1 mL, IV Push, q4h ondansetron 4 mg DIS tablet 4 mg 1 tab(s), Oral, q6h Lab Results 09/04 08:55 WBC: 8.5 Hgb: 12.8 Hct: 37.8 Platelet: 281 Neutrophil %: 63.2 Glucose Level: 134 H Sodium Level: 133 L Potassium Level: 3.1 L BUN: 18.0 Creatinine Lvl (s): 0.78 09/03 02:43 WBC: 9.8 Hgb: 12.3 Hct: 36.6 Platelet: 274 Neutrophil %: 67.5 Glucose Level: 110 Sodium Level: 140 Potassium Level: 3.8 BUN: 27.0 H Creatinine Lvl (s): 0.98 EKG EKG - Completed -- 09/02/23 10:58:00 EST, Unless 2 EKGs already done in the past 6 hours EKG - Completed -- 09/02/23 13:58:00 EST EKG - Completed -- 09/02/23 18:35:00 EST EKG - Completed -- 09/03/23 6:00:00 EST Assessment/Plan Orders: furosemide, Start: 09/04/23 9:45:00 EST, Dose = 40 mg, = 4 mL, IV Push, BID, 0, 09/04/23 9:45:00 EST losartan, Start: 09/04/23 11:43:00 EST, Dose = 25 mg, = 1 tab(s), Oral, qDay, 09/04/23 11:43:00 EST rosuvastatin, Start: 09/04/23 22:00:00 EST, Dose = 40 mg, = 2 tab(s), Oral, qDay, 09/04/23 11:42:00EST Basic Metabolic Panel Complete Blood Count Consult to Physician Magnesium Level Shortness of breath Acute proximal respiratory failure Elevated lactic acid levels-resolved Non-ischemic cardiomyopathy, presumably Takotsubo's Elevated Troponins Elevated LFT CAD s/p PCI RCA and LAD with ISR 50% RCA COPD Bipolar disorder Tobacco abuse GERD Anxiety Depression History of suicide attempt (2010) Personality disorder Plan: Patient presenting with acute hypoxic respiratory failure thought to be due to COPD versus CHF exacerbation. [facility] results personally reviewed along with TTE, RWMA abnormality with septal hypokinesis, distal LAD disease along with OM and Lcx which will be medically managed. IVC is 2.4cm without >50% collapsability suggesting 15 estimate RA pressure. Will continue diuresis with IV lasix. [facility] findings in conjunction with TTE favors Takotsubo's cardiomyopathy. Her is CAD will be medically managed with DAPT (ASA and plavix therapy) Will initiate crestor, losartan Cont. Metoprolol Digitally Signed by CARLOS NOONAN MD on 09/04/2023 12:03 PM Digitally Signed by CARLOS NOONAN MD on 09/04/2023 12:14 PM [facility] [id number] Note Date of Service 09/04/2023 Chief Complaint Weakness Subjective Patient evaluated at bedside, no chest pain. Mild shortness of breath. Noted to be alert, oriented to person, place, time, situation. No agitation noted on exam. Is tolerating oral intake. Objective Vitals and Measurements T: 36.8 C (Oral) TMIN: 36.5 C (Oral) TMAX: 36.8 C (Oral) HR: 74(Monitored) RR: 16 BP: 182/98 SpO2: 97% Intake and Output 7AM Yesterday to 7AM Today Intake and Output (Last 24 hours) Intake Supplement Intake 0.00 Output Urinary Catheter Output: 1775.00 Total Summary Total Intake 0.00 Total Output 1775.00 Fluid Balance -1775.00 Physical Exam Physical Exam General: Alert, appropriate and awake, oriented to time, people and place Skin: No rash. Warm, Dry, Intact HEENT: Head is normocephalic and atraumatic. No lesions. Pupils equal in size. Extraocular movements within normal limits. Nose: No septal deviation. Mouth: Oropharynx mucosa is without lesion. Neck: Supple. No lymphadenopathy, thyromegaly noted. Lungs: Bilaterally clear/diminished breath sounds with no crepitation or wheeze. Unlabored Cardiovascular: Heart is regular rhythm, S1S2, No extra-audible heart tones Abdomen: Abdomen is soft, nontender. Bowel sounds positive all four quadrants. Extremities: No clubbing, cyanosis or edema. Peripheral pulses palpable. No calf tenderness. Adequate peripheral circulation. Neurological: Following simple commands, moving all extremities. Weight Dosing Weight: 45.9 kg (09/03/23) Medications Medications (20) Active Scheduled: (10) albuterol - ipratropium 2.5 mg-0.5 mg/3 mL Inhal Smiley UD 3 mL, Inhalation, QIDRT aspirin 81 mg Chewable 81 mg 1 tab(s), Oral, Daily budesonide 0.5 mg/2 mL Susp UD 0.5 mg 2 mL, Inhalation, BIDRT bupropion 100 mg / 12hr SR tablet 100 mg 1 tab(s), Oral, qDay clopidogrel 75 mg Tablet 75 mg 1 tab(s), Oral, qDay furosemide 40 mg/4 mL vial 40 mg 4 mL, IV Push, BID metoprolol succinate 25 mg ER tablet 25 mg 1 tab(s), Oral, BIDM No metformin for 48 hrs post contrast 1 EA, Miscellaneous, Unscheduled oxcarbazepine 150 mg tablet 150 mg 1 tab(s), Oral, qHS potassium chloride 20 mEq ER tablet 60 mEq 3 tab(s), Oral, Once Continuous: (2) heparin 25,000 unit(s) [12 unit(s)/kg/hr] + Dextrose 5% Premix Diluent 250 mL 250 mL, Intravenous, 5.51 mL/hr insulin regular 100 unit(s) + NS Premix Diluent 100 mL 100 mL, Intravenous PRN: (8) albuterol - ipratropium 2.5 mg-0.5 mg/3 mL Inhal Smiley UD 3 mL, Inhalation, q2hRT albuterol 90 mcg/inh HFA Inhaler 180 mcg 2 puff(s), Inhalation, QIDRT dextrose 50% Solution Disp syringe 50 mL 12.5 gram(s) 25 mL, IV Push, AsDirected dextrose 50% Solution Disp syringe 50 mL 25 g 50 mL, IV Push, AsDirected heparin 5,000 units/mL (1 mL) vial 2,754 unit(s) 0.55 mL, IV Push, q6h insulin regular human recombinant 100 units/mL (3 mL) Soln sliding scale insulin, Subcutaneous, q4h morphine 2 mg/mL 1 mL syringe 2 mg 1 mL, IV Push, q4h ondansetron 4 mg DIS tablet 4 mg 1 tab(s), Oral, q6h Lab Results 09/04 08:55 WBC: 8.5 Hgb: 12.8 Hct: 37.8 Platelet: 281 Neutrophil %: 63.2 Glucose Level: 134 H Sodium Level: 133 L Potassium Level: 3.1 L BUN: 18.0 Creatinine Lvl (s): 0.78 09/03 02:43 WBC: 9.8 Hgb: 12.3 Hct: 36.6 Platelet: 274 Neutrophil %: 67.5 Glucose Level: 110 Sodium Level: 140 Potassium Level: 3.8 BUN: 27.0 H Creatinine Lvl (s): 0.98 EKG EKG - Completed -- 09/02/23 10:58:00 EST, Unless 2 EKGs already done in the past 6 hours EKG - Completed -- 09/02/23 13:58:00 EST EKG - Completed -- 09/02/23 18:35:00 EST EKG - Completed -- 09/03/23 6:00:00 EST Assessment/Plan 1. Delirium 2. NSTEMI 3. History of COPD 4. Acute on chronic heart failure with preserved ejection fraction 5. History of bipolar disorder 6. History of tobacco abuse 7. History of anxiety/depression Hospitalist team consulted for acute delirium status post self extubation. Noted to be alert and oriented x4, no agitation on exam. This has resolved. NSTEMI status post left heart cath, found to have moderate to severe coronary artery disease. Stenting was unsuccessful. To continue on medical management per primary team. History of COPD, not in acute exacerbation. Acute on chronic heart failure with preserved ejection fraction, EF on left heart cath noted to be 50%. On IV Lasix per primary team. History of bipolar disorder, continue Trileptal. History of tobacco abuse, patient refused nicotine patch. Recommend cessation. History of anxiety/depression, continue Wellbutrin. Delirium has resolved, hospitalist team will sign off. Discussed with patient at bedside, discussed with Dr. Duong. Time Spent Total time spent reviewing labs, diagnostics, evaluating the patient, and medical decision makin minutes Digitally Signed by ROSY MORALEZ on 09/04/2023 11:39 AM Digitally Signed by ROSY MORALEZ on 09/04/2023 02:58 PM [facility] [id number] Note* Exam Date Time Procedure Performing Provider Status 09/04/23 10:04 AM Echocardiogram, Adult - CV Auth (Verified) [facility] 11-13-2023 Note. MICRO - Microbiology PROCEDURE: Urine Culture [*1] SOURCE: Urine, Clean Catch BODY SITE: COLLECTED DATE/TIME: 09/02/2023 06:54 EST RECEIVED DATE/TIME: 09/02/2023 07:05 EST START DATE/TIME: 09/02/2023 07:05 EST FREE TEXT SOURCE: FINAL REPORTS Final Report [] Verified Date/Time/Personnel: 09/04/2023 07:23 EST No growth at 48 hours. PRELIMINARY REPORTS Preliminary Report [] Verified Date/Time/Personnel: 09/03/2023 10:53 EST No growth to date Performing Locations *1: This test was performed at: [facility], [address] [place] [address], [id number] , [facility])09-04-2023 Note. MICRO - Microbiology PROCEDURE: Culture Respiratory with Gram Stain [^1 *1] SOURCE: Tracheal Aspirate BODY SITE: COLLECTED DATE/TIME: 09/02/2023 06:54 EST RECEIVED DATE/TIME: 09/02/2023 07:06 EST START DATE/TIME: 09/02/2023 07:06 EST FREE TEXT SOURCE: FINAL REPORTS Final Report [] Verified Date/Time/Personnel: 09/04/2023 07:20 EST Normal respiratory renu present at 48 hours Sensitivity testing not indicated PRELIMINARY REPORTS Preliminary Report [] Verified Date/Time/Personnel: 09/03/2023 10:06 EST Negative for respiratory pathogens at 24 hours. STAINS GS [] Verified Date/Time/Personnel: 09/02/2023 14:56 EST Rare Polymorphonuclear cells Rare Gram Positive Cocci Rare Gram Positive Rods Interpretive Data ^1: Culture Respiratory with Gram Stain Requests for Mycoplasma, Legionella, Fungi, Mycobacteria, Chlamydia, and Viruses require ordering of those individual tests. Performing Locations *1: This test was performed at: [facility], [address] [place] [address], [address] [place] [address])09-04-2023 Note ORIGINAL EXAMINATION: ONE XRAY VIEW OF THE CHEST 09/04/2023 6:17 am COMPARISON: None. HISTORY: ORDERING SYSTEM PROVIDED HISTORY: Reason for Exam: SOB FINDINGS: Mild cardiomegaly. Interstitial and alveolar haziness throughout the lungs bilaterally, unchanged. Lungs are hyperinflated. Small bilateral effusions. IMPRESSION: Small bilateral effusions with chronic opacities throughout the lungs bilaterally. Interpreted by: Shahida Galicia MD Preliminary Report By: Shahida Galicia MD Electronically signed By Shahida Galicia MD Dictated Date: 09/04/2023 6:39:13 AM Prelim Date: 09/04/2023 6:42:09 AM Sign Date: 09/04/2023 6:42:09 AM Ordering Provider: [facility]11-12-2023 Note Date of Service 09/03/2023 Reason for Consultation Delirium Referring Physician Dr. Ryan Perera History of Present Illness A 68 years old female with past medical history significant for coronary artery disease status postPCI, COPD, bipolar disorder, tobacco abuse, anxiety/depression, history of suicide attempt was initially admitted on September 02 for acute mixed respiratory failure thought to be due to ACS or CHF exacerbation and placed on ventilator. Patient self extubated today transferred to cardiology service. Did have elevated proBNP and troponins on admission, started on heparin drip. Left heart cath done today showed moderate coronary artery disease with 99% stenosis of the first obtuse marginal branch, stenting was attempted but was unsuccessful. Medical management was recommended by cardiology. Medicine team was consulted for delirium. On my evaluation patient seems to be alert and mostly oriented, she was able to tell me details of her hospitalization (she just got the year wrong on orientation question), patient appeared to be in mild respiratory distress. Per nursing staff, earlier she was saturating 86% on 3 to 4 L and her oxygen improved after breathing treatments. Patient is also requesting bedside inhaler, on my evaluation she was satting well on 4 L of oxygen by nasal cannula. ABG done earlier today did not show evidence of hypercapnia, initial troponins were elevated it went up from [phone] and then trended downwards. proBNP of 5863 on admission. Patient did have some LFT elevation on admission, ultrasound, limited showed sonographically normalliver with trace perihepatic and pericholecystic fluid and small right pleural effusion. Chest x-ray on admission was reported as showing emphysematous changes with no focal consolidation or edema. Review of Systems Review of systems are negative except as mentioned in HPI Physical Exam Vitals and Measurements T: 36.5 C (Oral) TMIN: 36.5 C (Oral) TMAX: 37.3 C (Oral) HR: 72(Apical) RR: 20 BP: 158/71 SpO2: 91%HT: 157.5 cm WT: 45.9 kg BMI: 18.5 Weight Dosing Weight: 45.9 kg (09/03/23) General Appearance: Appears to be stable and in no acute distress Head: Atraumatic and normocephalic EENT: EOMI, PERRLA, no oropharyngeal erythema, no tonsillar exudates, no conjunctival injection. sclera anicteric. Neck: No thyromegaly, no cervical lymphadenopathy, trachea midline Cardiac: S1 and S2 normal. RRR. No murmurs, rubs, or gallops. No JVD. No hepatojugular reflex. Lungs: Bilateral decreased breath sounds on auscultation Abdomen: Soft, nontender, nondistended. Normoactive bowel sounds. No rebound or guarding. Negative Schaefer's sign. No hepatosplenomegaly. Musculoskeletal: Full range of motion upper and lower extremities. No CVA tenderness. Extremities: No lower extremity pitting edema. 2+ radial and pedal pulses bilaterally. Neurological: No gross motor deficits Skin: No abrasions, scars, or hematomas on visible skin. No cyanosis. No purulent discharge. Psychiatric: Alert and oriented, well groomed, euthymic. cooperative Lab Results 09/03 02:43 WBC: 9.8 Hgb: 12.3 Hct: 36.6 Platelet: 274 Neutrophil %: 67.5 Glucose Level: 110 Sodium Level: 140 Potassium Level: 3.8 BUN: 27.0 H Creatinine Lvl (s): 0.98 09/02 11:15 WBC: 7.7 Hgb: 13.4 Hct: 39.9 Platelet: 278 Neutrophil %: 88.7 H Protime: 11.8 PT International Ratio: 1.0 09/02 06:59 WBC: 9.6 Hgb: 13.8 Hct: 42.1 Platelet: 314 Neutrophil %: 94.1 H Glucose Level: 165 H Sodium Level: 140 Potassium Level: 2.9 L BUN: 20.0 Creatinine Lvl (s): 0.78 pH: 7.49 High (09/03/23 07:10:00) pCO2: 41.9 mm Hg (09/03/23 07:10:00) pO2: 86 mm Hg (09/03/23 07:10:00) HCO3: 31.2 mmol/L High (09/03/23 07:10:00) CO2 Totl: 32.5 mmol/L High (09/03/23 07:10:00) Base Excess: 7.2 mmol/L (09/03/23 07:10:00) O2 Sat: 96.7 % High (09/03/23 07:10:00) Barometric Pressure: 720 mm Hg (09/03/23 07:10:00) WBC: 9.8 10^3/mcL (09/03/23 02:43:00) RBC: 4.05 10^6/mcL Low (09/03/23 02:43:00) Hgb: 12.3 G/dL (09/03/23 02:43:00) Hct: 36.6 % (09/03/23 02:43:00) MCV: 90.2 fL (09/03/23 02:43:00) MCH: 30.3 pg (09/03/23 02:43:00) MCHC: 33.5 G/dL (09/03/23 02:43:00) RDW: 14.6 % (09/03/23 02:43:00) Platelet: 274 10^3/mcL (09/03/23 02:43:00) MPV: 7.7 fL (09/03/23 02:43:00) Neutrophil %: 67.5 % (09/03/23 02:43:00) Lymphocyte %: 20.9 % (09/03/23 02:43:00) Monocyte %: 10.8 % (09/03/23 02:43:00) Eosinophil %: 0.2 % (09/03/23 02:43:00) Basophil %: 0.6 % (09/03/23 02:43:00) Neutrophil, Absolute: 6.6 10^3/mcL (09/03/23 02:43:00) Lymphocyte, Absolute: 2 10^3/mcL (09/03/23 02:43:00) Monocyte, Absolute: 1.1 10^3/mcL (09/03/23 02:43:00) Eosinophil, Absolute: 0 10^3/mcL (09/03/23 02:43:00) Basophil, Absolute: 0.1 10^3/mcL (09/03/23 02:43:00) Heparin dose (APTT): Heparin IV (09/03/23 08:22:00) APTT: 44.3 seconds High (09/03/23 08:22:00) Protime: 11.8 seconds (09/02/23 11:15:00) PT International Ratio: 1 ratio (09/02/23 11:15:00) Glucose Level: 110 mg/dL (09/03/23 02:43:00) Sodium Level: 140 mEq/L (09/03/23 02:43:00) Potassium Level: 3.8 mEq/L (09/03/23 02:43:00) Chloride: 105 mEq/L (09/03/23 02:43:00) CO2: 31 mEq/L (09/03/23 02:43:00) Electrolyte Balance: 4 mEq/L (09/03/23 02:43:00) BUN: 27 mg/dL High (09/03/23 02:43:00) Creatinine Lvl (s): 0.98 mg/dL (09/03/23 02:43:00) BUN/Creatinine Ratio: 27.6 ratio High (09/03/23 02:43:00) Calcium Lvl: 8.5 mg/dL Low (09/03/23 02:43:00) Magnesium Lvl: 2.3 mg/dL (09/03/23 02:43:00) Phosphorus: 3.6 mg/dL (09/02/23 06:59:00) Total Protein: 5.7 G/dL (09/03/23 02:43:00) Albumin Level: 2.8 G/dL Low (09/03/23 02:43:00) Globulin: 2.9 G/dL (09/03/23 02:43:00) A/G Ratio: 1 ratio (09/03/23 02:43:00) Bili Total: 0.6 mg/dL (09/03/23 02:43:00) Alk Phos: 98 U/L (09/03/23 02:43:00) AST/SGOT: 92 U/L High (09/03/23 02:43:00) ALT/SGPT: 138 U/L High (09/03/23 02:43:00) GFR Non-: 56 ml/min/1.73sqm (09/03/23 02:43:00) GFR : >60 (09/03/23 02:43:00) Calcium Ionized: 0.99 mmol/L Low (09/02/23 06:59:00) Lactic Acid Lvl: 1.6 mmol/L (09/03/23 02:43:00) N-Terminal proBNP: 5863 pg/mL High (09/02/23 11:15:00) Troponin I High Sensitivity: 1793.02 ng/L High (09/03/23 02:43:00) Hep A IgM Ab: Non-Reactive ADM (09/02/23 13:49:00) Hep A IgM Ab Int: See Interp (09/02/23 13:49:00) Hep B Core IgM Ab: Non-Reactive ADM (09/02/23 13:49:00) Hep B Core IgM Ab Int: See Interp (09/02/23 13:49:00) Hep B Surf Ag: Non-Reactive ADM (09/02/23 13:49:00) Hep C Ab: Non-Reactive ADM (09/02/23 13:49:00) Hep C Ab Int: See Interp (09/02/23 13:49:00) Blood Glucose, Capillary: 119 mg/dL High (09/03/23 08:19:00) Blood Glucose Testing Reason: Routine (09/03/23 08:19:00) Imaging Results and Diagnostics US Abdomen Limited Result Date: September 02, 2023 Verified By: DOUG CARMONA MD CLINICAL STATEMENT: IMPRESSION: Sonographically normal liver. Trace perihepatic and pericholecystic fluid.Small right pleural effusion. XR Chest 1 View Result Date: September 02, 2023 Verified By: SHAHIDA GALICIA MD CLINICAL STATEMENT: IMPRESSION: Support devices as above. Emphysematous changes. No focal consolidation or edema. I have personally reviewed the images of this examination and agree with theresident's findings and interpretation. EKG EC09/03/23: Sinus rhythm Atrial premature complex Probable anterior infarct, age indeterminate Prolonged QT interval Electronic Signature: ADAM MALLORY MD 09/03/2023 16:06:10 Assessment/Plan Assessment: Delirium-improved NSTEMI COPD Bipolar disorder Tobacco use Anxiety/depression Plan: Patient did not seem significantly confused on my evaluation, she just got the year wrong and orientation questions, she was able to tell me the course of hospitalization. I do not think we need to get a CT head at this time, likely some mild confusion is due to hospitalization for ACS/respiratory failure and/or poorly controlled COPD. Per ICU records, she was not in COPD exacerbation and her shortness of breath/respiratory failure was more due to ACS versus CHF exacerbation. Did order ABG, added Pulmicort capsules inhalations twice daily, also added morphine as needed for shortness of breath, patient was also requesting bedside inhaler so communicated with pharmacy to arrange Ventolin HFA inhaler, patient is already on breathing treatments. Patient had a left heart cath done that showed moderate coronary artery disease with 99% stenosis in proximal part of first ostial marginal branch, stent was placed, medical management per primary team Continues to smoke 1 pack of cigarettes on a daily basis, counseled to cut down on tobacco use Thank you for the consult, hospitalist team will continue to follow-up. Note was written using [id number] neck band maker software. Some of the meaning of the words and sentences might have changed during neck band maker, if there was ever some confusion about the meaning of some sentences, please do not hesitate to contact me. Problem List/Past Medical History See HPI Procedure/Surgical History No qualifying data available. Medications Inpatient aspirin, 81 mg= 1 tab(s), Oral, Daily budesonide 0.5 mg/2 mL inhalation suspension, 0.5 mg= 2 mL, Inhalation, BIDRT Dextrose, 25 gram(s)= 50 mL, IV Push, AsDirected, PRN Dextrose 50% IV Push, 12.5 gram(s)= 25 mL, IV Push, AsDirected, PRN DuoNeb, 3 mL, Inhalation, q2hRT, PRN DuoNeb, 3 mL, Inhalation, QIDRT Heparin for IV 25,000 unit(s) [12 unit(s)/kg/hr] + Dextrose 5% Premix Diluent 250 mL Heparin HBW CARDIAC Bolus 5000 units/mL, 2754 unit(s)= 0.55 mL, 60 unit(s)/kg, IV Push, q6h, PRN HumuLIN R, sliding scale insulin, Subcutaneous, q4h, PRN Insulin Regular for IV 100 unit(s) + NS Premix Diluent 100 mL metoprolol succinate 25 mg oral TABLET extended release, 25 mg= 1 tab(s), Oral, BIDM morphine, 2 mg= 1 mL, IV Push, q4h, PRN NO METFORMIN (Glucophage) X 48hrs-patient has received contrast, 1 EA, Miscellaneous, Unscheduled Plavix, 75 mg= 1 tab(s), Oral, qDay Zofran ODT, 4 mg= 1 tab(s), Oral, q6h, PRN Home aspirin 81 mg oral delayed release tablet, 81 mg= 1 tab(s), Oral, Daily Trileptal, 150 mg, Oral, qHS Wellbutrin SR, 100 mg, Oral, qDay Allergies NKA Social History Smoking Status - 06/20/2011 Patient smokes Family History Noncontributory Immunizations No qualifying data available. Digitally Signed by ROSINA BRO MD on 09/03/2023 05:02 PM [facility] [id number] Cardiology Consult note Date of Service 09/03/2023 Reason for Consultation Elevated troponin levels Referring Physician Critical care team History of Present Illness Marcela Hsu is a 68-year-old female with a significant past medical history of CAD s/p PCI (vessels unknown however patient states 2 stents in late ), history of COPD, bipolar disorder, tobacco abuse, GERD, anxiety, depression, history of suicide attempt in the past (2010), and personalitydisorder who presented from outside hospital with shortness of breath. Patient presented to outsidehospital with shortness of breath and subsequently intubated with concerns for Respiratory failure secondary to COPD versus CHF. On arrival to the MICU patient was mechanical ventilation support. Labs demonstrated elevated proBNP (5863), elevated lactic acid levels (2.5), elevated high-sensitivity troponin levels (900 --> 1500--> 2000--> 3000 --> 2200 --> 1800), elevated LFT. Chest x-ray shows emphysematous changes with no edema. ECG reviewed demonstrating sinus rhythm with frequent PACs and mild ST elevations in the anteroseptal leads. Most recent ECG demonstrates repolarization changes significant for ischemia. Patient placed on aspirin and heparin drip. General cardiology consulted for further assistance in management. Review of Systems A thorough 14 point review of system was done, and is negative except for what was listed above in the HPI section Physical Exam Vitals and Measurements T: 36.5 C (Oral) TMIN: 36.5 C (Oral) TMAX: 37.7 C (Oral) HR: 70(Apical) RR: 23 BP: 147/73 SpO2: 91% Weight Dosing Weight: 45.9 kg (09/02/23) GENERAL: Patient is under no acute distress,and in no discomfort HEAD: Normocephalic, Atraumatic EYES/EARS: Pupils are equal and reactive, No scleral icterus. NOSE: Normal appearing nasal nares MOUTH Good oral hygiene, Moist oral mucosa, no pharyngeal erythema or exudates noted, undeviated uvula NECK: Supple, Nontender, No thyromegaly, No JVD, Midline trachea, No lymphadenopathy PULMONARY: Normal breathing effort, clear to auscultation bilaterally CARDIAC: RRR, Normal S1-S2, no murmur, gallops, or rubs. No lower extremity edema. ABDOMEN: soft, Nontender, Normal active bowel sounds BACK: No obvious deformities. : Deferred MSK: Warm bilaterally chronic skin changes noted SKIN: No PATHOLOGIC moles, rashes, lesions or ulcers were noted other than what is listed above NEURO: Alert and Oriented 4, Cranial nerves II to XII grossly intact. No focal. deficits grossly noted PSYCH: Pleasant, Good attention Lab Results 09/03 02:43 WBC: 9.8 Hgb: 12.3 Hct: 36.6 Platelet: 274 Neutrophil %: 67.5 Glucose Level: 110 Sodium Level: 140 Potassium Level: 3.8 BUN: 27.0 H Creatinine Lvl (s): 0.98 09/02 11:15 WBC: 7.7 Hgb: 13.4 Hct: 39.9 Platelet: 278 Neutrophil %: 88.7 H Protime: 11.8 PT International Ratio: 1.0 09/02 06:59 WBC: 9.6 Hgb: 13.8 Hct: 42.1 Platelet: 314 Neutrophil %: 94.1 H Glucose Level: 165 H Sodium Level: 140 Potassium Level: 2.9 L BUN: 20.0 Creatinine Lvl (s): 0.78 Imaging Results and Diagnostics US Abdomen Limited Result Date: September 02, 2023 Verified By: DOUG CARMONA MD CLINICAL STATEMENT: IMPRESSION: Sonographically normal liver. Trace perihepatic and pericholecystic fluid.Small right pleural effusion. XR Chest 1 View Result Date: September 02, 2023 Verified By: SHAHIDA GALICIA MD CLINICAL STATEMENT: IMPRESSION: Support devices as above. Emphysematous changes. No focal consolidation or edema. I have personally reviewed the images of this examination and agree with theresident's findings and interpretation. EKG I have reviewed all available EKGs, echocardiograms, stress test and cardiac catheterizations. Relevant laboratory data have also been reviewed. Assessment/Plan Impression: Shortness of breath Acute proximal respiratory failure requiring mechanical ventilation support Elevated proBNP Elevated lactic acid levels-resolved NSTEMI Elevated LFT COPD History of CAD s/p PCI (vessels unknown however patient states 2 stents in the late 1980s) Bipolar disorder Tobacco abuse GERD Anxiety Depression History of suicide attempt (2010) Personality disorder Plan: Patient presenting with acute proximal respiratory failure thought to be due to COPD versus CHF exacerbation. Review of ECG demonstrates ST segment changes suggestive of left main/LAD territory versus Takotsubo cardiomyopathy. Agree with aspirin and heparin drip. Statins held due to elevated LFTs. Patient will need further ischemic evaluation. Transthoracic echocardiogram ordered and pending. Plan discussed with patient and primary team. All questions, comments, and concerns addressed. Remaining management per primary. Assessment and plan was discussed with Dr. Quiñones. Any changes in assessment/plan, will be added as an addendum to this note by the attending physician. This note was transcribed via voice recognition software. Please forgive any errors or typos resulting from the use of this technology. Sonia Canseco DO, MS [employer] ([id number]) Pager [phone]/ [employer] Problem List/Past Medical History Ongoing No qualifying data Historical No qualifying data Procedure/Surgical History No qualifying data available. Medications Inpatient aspirin, 81 mg= 1 tab(s), Oral, Daily Dextrose, 25 gram(s)= 50 mL, IV Push, AsDirected, PRN Dextrose 50% IV Push, 12.5 gram(s)= 25 mL, IV Push, AsDirected, PRN DuoNeb, 3 mL, Inhalation, q2hRT, PRN DuoNeb, 3 mL, Inhalation, QIDRT Heparin for IV 25,000 unit(s) [12 unit(s)/kg/hr] + Dextrose 5% Premix Diluent 250 mL Heparin HBW CARDIAC Bolus 5000 units/mL, 2754 unit(s)= 0.55 mL, 60 unit(s)/kg, IV Push, q6h, PRN HumuLIN R, sliding scale insulin, Subcutaneous, q4h, PRN Insulin Regular for IV 100 unit(s) + NS Premix Diluent 100 mL metoprolol succinate 25 mg oral TABLET extended release, 12.5 mg= 0.5 tab(s), Oral, BIDM Zofran ODT, 4 mg= 1 tab(s), Oral, q6h, PRN Home aspirin 81 mg oral delayed release tablet, 81 mg= 1 tab(s), Oral, Daily Trileptal, 150 mg, Oral, qHS Wellbutrin SR, 100 mg, Oral, qDay Allergies NKA Social History Smoking Status - 06/20/2011 Patient smokes Immunizations No qualifying data available. Digitally Signed by SONIA CANSECO DO on 09/03/2023 08:21 AM [facility] [id number] Note* Exam Date Time Procedure Performing Provider Status 09/03/23 11:40 AM Cardiac Catheterization -CV Auth (Verified) [facility] 11-12-2023 Note Date of Service 09/03/2023. Day #2 in MICU Radha Hsu is a 68-year-old female with a past medical history of COPD, bipolar disorder, tobacco abuse, GERD, anxiety, depression, suicidal attempt in the past [2010], and personality disorder.The patient presented to [facility] for shortness of breath. The patient was tried on nasal cannula and BiPAP. However, the patient did not tolerate these measures. As a result, she was intubated. Initial ABG pH 7.30/51/66/25, WBC 12.5, H&H 14.5, Potassium of 3.3, bicarb and serum 28.4, BUN 23, creatinine 1.15, AST 229, ALT 213, ALP 154, D-dimer 686, initial lactic acid 3.7 to 0.8, Troponin unremarkable, 25 ->515, no chest pain when came in, no specific ekg changes were found. NT proBNP was 1838. Due to these results, the patient was transferred to the [facility] ICU. During this admission it was determined that this patient was not suffering from acute exacerbationof COPD, there is concern about acute coronary syndrome and cardiogenic pulm edema, as highest troponin was 3000, patient started on IV heparin, aspirin beta-blockers, 2D echo was ordered and along with cardiology service consultations appreciate their input. Last 24 hours and this morning: Patient self extubated, she is on 4 L of oxygen nasal cannula, normotensive, seen per cardiology and the plan to proceed with cardiac catheterization today, since yesterday we learned that patient has known history of coronary disease in the past she has had been stented twice. In addition EKG overnight reveals evidence of ischemic changes with deep inverted T waves in the anteroapical leads patient normotensive Objective Vitals and Measurements T: 36.5 C (Oral) TMIN: 36.5 C (Oral) TMAX: 37.7 C (Oral) HR: 65 RR: 18 BP: 140/75 SpO2: 93% HT: 157.5 cm WT: 45.9 kg BMI: 18.5 Physical Exam Skin: Warm and dry no obvious rash or ulcerations. HEENT: Nasal cannula is present Neck: No JVD or adenopathy. Cardiovascular: Normal heart sounds, regular rhythm no murmurs. Chest and lung exam: Normal excursion with symmetric chest wall movement. Chest wall is nontender. Lungs are clear, breath sounds equal there is no rales or rhonchi's no wheezing. Abdomen: No obvious visible abnormalities, soft, nontender, no organomegaly, no rigidity or tenderness. Neurologic: Sedated and is on mechanical ventilation Weight Dosing Weight: 45.9 kg (09/03/23) Medications Medications (11) Active Scheduled: (3) albuterol - ipratropium 2.5 mg-0.5 mg/3 mL Inhal Smiley UD 3 mL, Inhalation, QIDRT aspirin 81 mg Chewable 81 mg 1 tab(s), Oral, Daily metoprolol succinate 25 mg ER tablet 25 mg 1 tab(s), Oral, BIDM Continuous: (2) heparin 25,000 unit(s) [12 unit(s)/kg/hr] + Dextrose 5% Premix Diluent 250 mL 250 mL, Intravenous, 5.51 mL/hr insulin regular 100 unit(s) + NS Premix Diluent 100 mL 100 mL, Intravenous PRN: (6) albuterol - ipratropium 2.5 mg-0.5 mg/3 mL Inhal Smiley UD 3 mL, Inhalation, q2hRT dextrose 50% Solution Disp syringe 50 mL 12.5 gram(s) 25 mL, IV Push, AsDirected dextrose 50% Solution Disp syringe 50 mL 25 g 50 mL, IV Push, AsDirected heparin 5,000 units/mL (1 mL) vial 2,754 unit(s) 0.55 mL, IV Push, q6h insulin regular human recombinant 100 units/mL (3 mL) Soln sliding scale insulin, Subcutaneous, q4h ondansetron 4 mg DIS tablet 4 mg 1 tab(s), Oral, q6h Lab Results 09/03 02:43 WBC: 9.8 Hgb: 12.3 Hct: 36.6 Platelet: 274 Neutrophil %: 67.5 Glucose Level: 110 Sodium Level: 140 Potassium Level: 3.8 BUN: 27.0 H Creatinine Lvl (s): 0.98 09/02 11:15 WBC: 7.7 Hgb: 13.4 Hct: 39.9 Platelet: 278 Neutrophil %: 88.7 H Protime: 11.8 PT International Ratio: 1.0 09/02 06:59 WBC: 9.6 Hgb: 13.8 Hct: 42.1 Platelet: 314 Neutrophil %: 94.1 H Glucose Level: 165 H Sodium Level: 140 Potassium Level: 2.9 L BUN: 20.0 Creatinine Lvl (s): 0.78 EKG Electrocardiogram (EKG) - InProcess -- 09/02/23 13:58:00 EST Electrocardiogram (EKG) - InProcess -- 09/02/23 18:35:00 EST Electrocardiogram (EKG) - InProcess -- 09/03/23 6:00:00 EST Assessment/Plan 1. Acute mixed respite failures of mechanical ventilations, on 4 L of oxygen per nasal cannula 2. History of chronic obstructive pulm disease without evidence of acute chest infection or acute exacerbation of COPD. 3. Acute coronary syndrome, patient is known history of coronary disease 4. pulmonary edema., Improved 5. Other comorbidity including active tobacco use, bipolar disorder. Plan: 1. Wean oxygen as tolerated. 2. Continue IV heparin, aspirin, increase metoprolol to 25 mg p.o. twice daily, cardiac catheterization per cardiology. 3. Bronchodilators. 4. Protonix for GI prophylaxis. 5. Patient will be transferred to monitored bed in CCU. Pulmonary service will follow Digitally Signed by JHONNY VALENCIA MD on 09/03/2023 11:32 AM [facility] [id number] Nurse Progress note Attempted to call patient's , per patient request, to update him on patient's plan of care. did not answer home phone, voicemail box was full and unable to leave a message. Patient provided 's cell phone number. No answer and again unable to leave a message. Digitally Signed by Pamella Tao RN on 09/03/2023 09:17 AM [facility] [id number] Cardiology Consult note Date of Service 09/03/2023 Reason for Consultation Elevated troponin levels Referring Physician Critical care team History of Present Illness Marcela Hsu is a 68-year-old female with a significant past medical history of CAD s/p PCI (vessels unknown however patient states 2 stents in late ), history of COPD, bipolar disorder, tobacco abuse, GERD, anxiety, depression, history of suicide attempt in the past (2010), and personalitydisorder who presented from outside hospital with shortness of breath. Patient presented to outsidehospital with shortness of breath and subsequently intubated with concerns for Respiratory failure secondary to COPD versus CHF. On arrival to the MICU patient was mechanical ventilation support. Labs demonstrated elevated proBNP (5863), elevated lactic acid levels (2.5), elevated high-sensitivity troponin levels (900 --> 1500--> 2000--> 3000 --> 2200 --> 1800), elevated LFT. Chest x-ray shows emphysematous changes with no edema. ECG reviewed demonstrating sinus rhythm with frequent PACs and mild ST elevations in the anteroseptal leads. Most recent ECG demonstrates repolarization changes significant for ischemia. Patient placed on aspirin and heparin drip. General cardiology consulted for further assistance in management. Review of Systems A thorough 14 point review of system was done, and is negative except for what was listed above in the HPI section Physical Exam Vitals and Measurements T: 36.5 C (Oral) TMIN: 36.5 C (Oral) TMAX: 37.7 C (Oral) HR: 70(Apical) RR: 23 BP: 147/73 SpO2: 91% Weight Dosing Weight: 45.9 kg (09/02/23) GENERAL: Patient is under no acute distress,and in no discomfort HEAD: Normocephalic, Atraumatic EYES/EARS: Pupils are equal and reactive, No scleral icterus. NOSE: Normal appearing nasal nares MOUTH Good oral hygiene, Moist oral mucosa, no pharyngeal erythema or exudates noted, undeviated uvula NECK: Supple, Nontender, No thyromegaly, No JVD, Midline trachea, No lymphadenopathy PULMONARY: Normal breathing effort, clear to auscultation bilaterally CARDIAC: RRR, Normal S1-S2, no murmur, gallops, or rubs. No lower extremity edema. ABDOMEN: soft, Nontender, Normal active bowel sounds BACK: No obvious deformities. : Deferred MSK: Warm bilaterally chronic skin changes noted SKIN: No PATHOLOGIC moles, rashes, lesions or ulcers were noted other than what is listed above NEURO: Alert and Oriented 4, Cranial nerves II to XII grossly intact. No focal. deficits grossly noted PSYCH: Pleasant, Good attention Lab Results 09/03 02:43 WBC: 9.8 Hgb: 12.3 Hct: 36.6 Platelet: 274 Neutrophil %: 67.5 Glucose Level: 110 Sodium Level: 140 Potassium Level: 3.8 BUN: 27.0 H Creatinine Lvl (s): 0.98 09/02 11:15 WBC: 7.7 Hgb: 13.4 Hct: 39.9 Platelet: 278 Neutrophil %: 88.7 H Protime: 11.8 PT International Ratio: 1.0 09/02 06:59 WBC: 9.6 Hgb: 13.8 Hct: 42.1 Platelet: 314 Neutrophil %: 94.1 H Glucose Level: 165 H Sodium Level: 140 Potassium Level: 2.9 L BUN: 20.0 Creatinine Lvl (s): 0.78 Imaging Results and Diagnostics US Abdomen Limited Result Date: September 02, 2023 Verified By: DOUG CARMONA MD CLINICAL STATEMENT: IMPRESSION: Sonographically normal liver. Trace perihepatic and pericholecystic fluid.Small right pleural effusion. XR Chest 1 View Result Date: September 02, 2023 Verified By: SHAHIDA GALICIA MD CLINICAL STATEMENT: IMPRESSION: Support devices as above. Emphysematous changes. No focal consolidation or edema. I have personally reviewed the images of this examination and agree with theresident's findings and interpretation. EKG I have reviewed all available EKGs, echocardiograms, stress test and cardiac catheterizations. Relevant laboratory data have also been reviewed. Assessment/Plan Impression: Shortness of breath Acute proximal respiratory failure requiring mechanical ventilation support Elevated proBNP Elevated lactic acid levels-resolved NSTEMI Elevated LFT COPD History of CAD s/p PCI (vessels unknown however patient states 2 stents in the late ) Bipolar disorder Tobacco abuse GERD Anxiety Depression History of suicide attempt (2010) Personality disorder Plan: Patient presenting with acute proximal respiratory failure thought to be due to COPD versus CHF exacerbation. Review of ECG demonstrates ST segment changes suggestive of left main/LAD territory versus Takotsubo cardiomyopathy. Agree with aspirin and heparin drip. Statins held due to elevated LFTs. Patient will need further ischemic evaluation. Transthoracic echocardiogram ordered and pending. Plan discussed with patient and primary team. All questions, comments, and concerns addressed. Remaining management per primary. Assessment and plan was discussed with Dr. Quiñones. Any changes in assessment/plan, will be added as an addendum to this note by the attending physician. This note was transcribed via voice recognition software. Please forgive any errors or typos resulting from the use of this technology. Sonia Canseco DO, MS [employer] ([id number]) Pager [phone]/ Cort[employer] Problem List/Past Medical History Ongoing No qualifying data Historical No qualifying data Procedure/Surgical History No qualifying data available. Medications Inpatient aspirin, 81 mg= 1 tab(s), Oral, Daily Dextrose, 25 gram(s)= 50 mL, IV Push, AsDirected, PRN Dextrose 50% IV Push, 12.5 gram(s)= 25 mL, IV Push, AsDirected, PRN DuoNeb, 3 mL, Inhalation, q2hRT, PRN DuoNeb, 3 mL, Inhalation, QIDRT Heparin for IV 25,000 unit(s) [12 unit(s)/kg/hr] + Dextrose 5% Premix Diluent 250 mL Heparin HBW CARDIAC Bolus 5000 units/mL, 2754 unit(s)= 0.55 mL, 60 unit(s)/kg, IV Push, q6h, PRN HumuLIN R, sliding scale insulin, Subcutaneous, q4h, PRN Insulin Regular for IV 100 unit(s) + NS Premix Diluent 100 mL metoprolol succinate 25 mg oral TABLET extended release, 12.5 mg= 0.5 tab(s), Oral, BIDM Zofran ODT, 4 mg= 1 tab(s), Oral, q6h, PRN Home aspirin 81 mg oral delayed release tablet, 81 mg= 1 tab(s), Oral, Daily Trileptal, 150 mg, Oral, qHS Wellbutrin SR, 100 mg, Oral, qDay Allergies NKA Social History Smoking Status - 06/20/2011 Patient smokes Immunizations No qualifying data available. Digitally Signed by SONIA CANSECO DO on 09/03/2023 08:21 AM [facility] [id number] NoteSinus rhythm Atrial premature complex Prolonged QT interval T WAVE INVERSION CONCERNING FOR ISCHEMIA Electronic Signature: ADAM MALLORY MD 09/03/2023 16:06:55[facility] 11-11-2023 Note. MICRO - Microbiology PROCEDURE: Blood Culture (bacterial) [*1] SOURCE: Blood BODY SITE: COLLECTED DATE/TIME: 09/02/2023 00:40 EST RECEIVED DATE/TIME: 09/02/2023 18:10 EST START DATE/TIME: 09/02/2023 18:10 EST FREE TEXT SOURCE: PRELIMINARY REPORTS Preliminary Report [] Verified Date/Time/Personnel: 09/02/2023 18:59 EST Culture has been received in lab and is no growth to date. Routine cultures are held for 5 days. Performing Locations *1: This test was performed at: [address]09-02-2023 Note. MICRO - Microbiology PROCEDURE: Blood Culture (bacterial) [*1] SOURCE: Blood BODY SITE: COLLECTED DATE/TIME: 09/02/2023 00:40 EST RECEIVED DATE/TIME: 09/02/2023 18:10 EST START DATE/TIME: 09/02/2023 18:10 EST FREE TEXT SOURCE: PRELIMINARY REPORTS Preliminary Report [] Verified Date/Time/Personnel: 09/02/2023 18:59 EST Culture has been received in lab and is no growth to date. Routine cultures are held for 5 days. Performing Locations *1: This test was performed at: [address] ([facility]09-02-2023 Note. MICRO - Microbiology PROCEDURE: Blood Culture (bacterial) [*1] SOURCE: Blood BODY SITE: COLLECTED DATE/TIME: 09/02/2023 01:00 EST RECEIVED DATE/TIME: 09/02/2023 16:47 EST START DATE/TIME: 09/02/2023 16:47 EST FREE TEXT SOURCE: PRELIMINARY REPORTS Preliminary Report [] Verified Date/Time/Personnel: 09/02/2023 17:59 EST Culture has been received in lab and is no growth to date. Routine cultures are held for 5 days. Performing Locations *1: This test was performed at: [address], [facility] , [facility]09-02-2023 Note. MICRO - Microbiology PROCEDURE: Blood Culture (bacterial) [*1] SOURCE: Blood BODY SITE: COLLECTED DATE/TIME: 09/02/2023 01:00 EST RECEIVED DATE/TIME: 09/02/2023 16:47 EST START DATE/TIME: 09/02/2023 16:47 EST FREE TEXT SOURCE: PRELIMINARY REPORTS Preliminary Report [] Verified Date/Time/Personnel: 09/02/2023 17:59 EST Culture has been received in lab and is no growth to date. Routine cultures are held for 5 days. Performing Locations *1: This test was performed at: [address], [facility] , [facility]09-02-2023 NoteSinus rhythm Atrial premature complex Probable anterior infarct, age indeterminate Prolonged QT interval Electronic Signature: ADAM MALLORY MD [facility] NoteSinus rhythm Atrial premature complex Anterior infarct, old Nonspecific T abnormalities, lateral leads Prolonged QT interval Electronic Signature: ADAM MALLORY MD 09/03/2023 16:06:01[facility] 11-11-2023 Evaluation + Plan noteExtracted from: Title:History and Physical Author:JHONNY VALENCIA MD Date:09/02/23 1. Acute mixed respite failu res on mechanical ventilations. 2. History of chronic obstructive pulm disease without evidence of acute chest infection or acute exacerbation of COPD. 3. Acute myocardial injury. 4. Concern for pulmonary edema. 5. Other comorbidity including active tobacco use, bipolar disorder. Plan: 1. Sedation with low-dose propofol. Continue current mode and setting of mechanical ventilation, FiO2 40% and PEEP 5 cmH2O, the mode is assist-control, providing a very good ventilation oxygenation. 2. Start patient on IV heparin, aspirin, low-dose beta-blockers along with 2D echo and continue to monitor troponin. 3. Lasix 40 mg IV now. 4. Continue bronchodilators. 5. Stop antibiotic and so systemic steroid therapy. 6. Protonix for GI prophylaxis. Extracted from: Title:MICU History and Physical Author:CHI PLAZA MD Date:09/02/23 Acute hypoxic respiratory fa ilure Concern for CHF exacerbation COPD exacerbation (PFTs unknown, presumed) Elevated troponins Elevated lactic acid Elevated AST/ALT and alkaline phosphatase Personality disorder, anxiety, depression DVT: Heparin 5000 units every 8 hours Diet: N.p.o. Full code, confirmed with family Acute hypoxic respiratory failure secondary to COPD vs. CHF The patient was mechanically intubated secondary to her failure to oxygenate with her respective noninvasive measures. The patient will be sedated medically optimized before she can proceed with extubation. We will place the patient on propofol and fentanyl pushes for sedation We will d/c antibiotics at this time - We will start ASA and Beta Cherelle - We will order an echo Elevated troponins The patient had troponins of 25 and 515. The patient denies any chest pain before intubation. We will trend the patient's troponins and EKG We trend the patient's troponins Elevated lactic acid the patient's original lactic acid was 3.7 on admission The patient's admitting [place] lactic acid was 1.8. We will not continue to trend the patient's lactic acid at this time, which can monitor. Elevated liver enzymes We will order an abdominal ultrasound and hepatitis panel We will follow the results We will resume the patient's home medications as tolerated. This case was discussed with attending, all changes were made as an addendum. Future Appointments Appointment Date:09/13/2023 03:00:00 PM Scheduled Provider: Location:[facility] Appointment Type:[facility] Follow Up Diagnostic Tests Pending * Legionella Urine Ag 09/02/23 * Streptococcus Pneumoniae Urine Antig 09/02/23 [facility] 11-11-2023 History and physical note Date of Service 09/02/2023 Chief Complaint Shortness of breath History of Present Illness No other information available at this point of time68 years old lady with history of chronic obstructive pulm disease, no PFTs on record, active tobacco user, bipolar disorder, suicide attempt 2010,sent [facility] us from a Hospital with acute mixed respite failures on mechanical ventilation, patient normotensive, sedated, examination reveals no wheezing, she has no fever or leukocytosis. EKG sinus tachycardia no acute ischemic changes however troponin is elevated of 1500, CT angio of the chest reveals no evidence of PE. Review of Systems Unobtainable due to patient current medical condition Physical Exam Vitals and Measurements T: 37.7 C (Oral) TMIN: 36.9 C (Oral) TMAX: 37.7 C (Oral) HR: 73(Monitored) RR: 19 BP: 166/92 SpO2: 96% HT: 157.5 cm WT: 45.9 kg BMI: 18.5 Weight Dosing Weight: 45.9 kg (09/02/23) General patient is alert does not appear to be in any distress. Skin: Warm and dry no obvious rash or ulcerations. HEENT: ET tube is in place Neck: No JVD or adenopathy. Cardiovascular: Normal heart sounds, regular rhythm no murmurs. Chest and lung exam: Normal excursion with symmetric chest wall movement. Chest wall is nontender. Lungs are clear, breath sounds equal there is no rales or rhonchi's no wheezing. Abdomen: No obvious visible abnormalities, soft, nontender, no organomegaly, no rigidity or tenderness. Neurologic: Sedated and is on mechanical ventilation Musculoskeletal: No clubbing, cyanosis or edema. Lymphatic: No evidence of lymphadenopathy or tenderness. Lab Results 09/02 11:15 WBC: 7.7 Hgb: 13.4 Hct: 39.9 Platelet: 278 Neutrophil %: 88.7 H Protime: 11.8 PT International Ratio: 1.0 09/02 06:59 WBC: 9.6 Hgb: 13.8 Hct: 42.1 Platelet: 314 Neutrophil %: 94.1 H Glucose Level: 165 H Sodium Level: 140 Potassium Level: 2.9 L BUN: 20.0 Creatinine Lvl (s): 0.78 Assessment/Plan 1. Acute mixed respite failures on mechanical ventilations. 2. History of chronic obstructive pulm disease without evidence of acute chest infection or acute exacerbation of COPD. 3. Acute myocardial injury. 4. Concern for pulmonary edema. 5. Other comorbidity including active tobacco use, bipolar disorder. Plan: 1. Sedation with low-dose propofol. Continue current mode and setting of mechanical ventilation, FiO2 40% and PEEP 5 cmH2O, the mode isassist-control, providing a very good ventilation oxygenation. 2. Start patient on IV heparin, aspirin, low-dose beta-blockers along with 2D echo and continue to monitor troponin. 3. Lasix 40 mg IV now. 4. Continue bronchodilators. 5. Stop antibiotic and so systemic steroid therapy. 6. Protonix for GI prophylaxis. Problem List/Past Medical History Ongoing No qualifying data Historical No qualifying data Procedure/Surgical History No qualifying data available. Medications Home Medications (2) Active Trileptal 150 mg, Oral, qHS Wellbutrin SR 100 mg, Oral, qDay Allergies NKA Social History Smoking Status - 06/20/2011 Patient smokes Family History Noncontributory Immunizations No qualifying data available. Code Status Code Status - Ordered -- 09/02/23 6:38:00 EST, Full Code, Constant Order Digitally Signed by JHONNY VALENCIA MD on 09/02/2023 01:24 PM [facility] [id number] Note ORIGINAL EXAMINATION: LIMITED ABDOMINAL [id number]/11/2023 12:19 pm COMPARISON: None HISTORY: ORDERING SYSTEM PROVIDED HISTORY: Reason for Exam: Elevated Liver Enzymes FINDINGS: The liver is normal in size and echogenicity. No focal lesion or bile duct dilatation. The common duct is 3.3 mm at the tae hepatis. The main portal vein is patent with antegrade flow and no thrombus. The gallbladder contains no stone and shows borderline wall thickening. There is trace pericholecystic fluid and some fluid around the liver. No stones. Negative sonographic Schaefer's sign. The visualized pancreas is normal but some portions are obscured by bowel gas. The right kidney shows no obstruction but this is not adequately visualized or evaluated due to artifacts. Small right pleural effusion. IMPRESSION: Sonographically normal liver. Trace perihepatic and pericholecystic fluid. Small right pleural effusion. Interpreted by: Doug Carmona MD Preliminary Report By: Doug Carmona MD Electronically signed By Doug Carmona MD Dictated Date: 09/02/2023 2:25:37 PM Prelim Date: 09/02/2023 2:27:43 PM Sign Date: 09/02/2023 2:27:43 PM Ordering Provider: FRANCESCA [facility]11-11-2023 NoteSinus rhythm Atrial premature complex Anterior infarct, old Nonspecific T abnormalities, lateral leads Prolonged QT interval Electronic Signature: ADAM MALLORY MD 09/03/2023 16:05:52[facility] 11-11-2023 Note ORIGINAL EXAMINATION: ONE XRAY VIEW OF THE CHEST 09/02/2023 7:38 am COMPARISON: 06/20/2011. HISTORY: ORDERING SYSTEM PROVIDED HISTORY: Reason for Exam: Endotracheal tube placement og placement FINDINGS: Endotracheal tube with tip projecting 6.8 cm above the level the steve. An enteric tube courses midline, crosses the diaphragm with side port and tip projecting over the expected gastric body. Stable cardiomediastinal silhouette. The lungs are hyperinflated with scattered radiolucencies in interstitial prominence which is favored chronic. There appears to be flattening of the diaphragms. Some peribronchial cuffing is noted. No pleural effusion or pneumothorax. No focal consolidation. Degenerative changes of the spine. IMPRESSION: Support devices as above. Emphysematous changes. No focal consolidation or edema. I have personally reviewed the images of this examination and agree with the resident's findings and interpretation. Interpreted by: Shahida Galicia MD Preliminary Report By: Paolo Sidhu Electronically signed By Shahida Galicia MD Dictated Date: 09/02/2023 7:43:59 AM Prelim Date: 09/02/2023 7:48:05 AM Sign Date: 09/02/2023 8:06:12 AM Ordering Provider: [facility]11-11-2023 History and physical note Date of Service 09/02/2023 Chief Complaint Shortness of breath History of Present Illness Marcela Hsu is a 68-year-old female with a past medical history of COPD, bipolar disorder, tobacco abuse, GERD, anxiety, depression, suicidal attempt in the past [2010], and personality disorder.The patient presented to [facility] for shortness of breath. The patient was tried on nasal cannula and BiPAP. However, the patient did not tolerate these measures. As a result, she was intubated. Initial ABG pH 7.30/51/66/25, WBC 12.5, H&H 14.5, Potassium of 3.3, bicarb and serum 28.4, BUN 23, creatinine 1.15, AST 229, ALT 213, ALP 154, D-dimer 686, initial lactic acid 3.7 to 0.8, Troponin unremarkable, 25 ->515, no chest pain when came in, no specific ekg changes were found. NT proBNP was 1838. Due to these results, the patient was transferred to the [facility] ICU. Of note Echo on 12/27/2016: Ejection fraction 65%, mild mitral annular calcification with ovoid 13 mmx 6 mm nonmobile echogenic mass localized to anterior mid mitral leaflet chordal, . Review of Systems intubated, could not be obtained Physical Exam Vitals and Measurements No qualifying data available. General Appearance: Appears to be stable and in no acute distress Head: Atraumatic and normocephalic EENT: EOMI, PERRLA, no oropharyngeal erythema, no tonsillar exudates, no conjunctival injection Neck: No thyromegaly, no cervical lymphadenopathy, trachea midline, no carotid bruits. No JVD. Cardiac: S1 and S2 normal. RRR. No murmurs, rubs, or gallops. No hepatojugular reflex. Lungs: Good air entry bilaterally. Coarse Breath Sounds bilaterally Abdomen: Soft, nontender, nondistended. Normoactive bowel sounds. No hepatosplenomegaly. Musculoskeletal: Full range of motion upper and lower extremities. No reproducible costchondral wall tenderness. Extremities: No lower extremity pitting edema bilaterally. 1+ DP and PT pulses Neurological: CN II through XII grossly intact. Dermatologic: No clubbing. No cyanosis. Large Bilateral Toe nails Lab Results No 36 Hour Lab Data Imaging Results and Diagnostics XR Chest 1 View Result Date: September 02, 2023 Verified By: SHAHIDA GALICIA MD CLINICAL STATEMENT: IMPRESSION: Support devices as above. Emphysematous changes. No focal consolidation or edema. I have personally reviewed the images of this examination and agree with theresident's findings and interpretation. Assessment/Plan Acute hypoxic respiratory failure Concern for CHF exacerbation COPD exacerbation (PFTs unknown, presumed) Elevated troponins Elevated lactic acid Elevated AST/ALT and alkaline phosphatase Personality disorder, anxiety, depression DVT: Heparin 5000 units every 8 hours Diet: N.p.o. Full code, confirmed with family Acute hypoxic respiratory failure secondary to COPD vs. CHF The patient was mechanically intubated secondary to her failure to oxygenate with her respective noninvasive measures. The patient will be sedated medically optimized before she can proceed with extubation. We will place the patient on propofol and fentanyl pushes for sedation We will d/c antibiotics at this time - We will start ASA and Beta Cherelle - We will order an echo Elevated troponins The patient had troponins of 25 and 515. The patient denies any chest pain before intubation. We will trend the patient's troponins and EKG We trend the patient's troponins Elevated lactic acid the patient's original lactic acid was 3.7 on admission The patient's admitting [place] lactic acid was 1.8. We will not continue to trend the patient's lactic acid at this time, which can monitor. Elevated liver enzymes We will order an abdominal ultrasound and hepatitis panel We will follow the results We will resume the patient's home medications as tolerated. This case was discussed with attending,all changes were made as an addendum. Problem List/Past Medical History Ongoing No qualifying data Historical No qualifying data Procedure/Surgical History No qualifying data available. Medications Home Medications (2) Active Trileptal 150 mg, Oral, qHS Wellbutrin SR 100 mg, Oral, qDay Allergies NKA Social History Smoking Status - 06/20/2011 Patient smokes Immunizations No qualifying data available. Code Status No qualifying data available. 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, unspecified vessel or lesion type (CMS/HCC) Primary hypertension Unspecified essential hypertension Congestive heart failure, unspecified HF chronicity, unspecified heart failure type (CMS/HCC) documented in this encounter [facility] Work Phone: Evaluation note* Diagnosis Primary hypertension- Primary Unspecified essential hypertension Congestive heart failure, unspecified HF chronicity, unspecified heart failure type 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, unspecified vessel or lesion type Chronic obstructive pulmonary disease, unspecified COPD type (Multi) Health maintenance examination Unspecified general medical examination documented in this encounter [facility] Work Phone: Hospital course Narrative No data available for this section [facility] Reason for referral (narrative)* Consultation (Routine) - Authorized Specialty Diagnoses / Procedures Referred By Radha madsen Referred To Contact Primary Care Procedures Follow Up In Primary Care - Established Elvin Blanc PA-C [address] [employer] [address] [place] [address] Referral ID Status Reason Start Date Expiration Date V isits Requested Visits Authorized [id number] Authorized 09/18/2023 09/17/2024 1 1 [facility] Work Phone: Summary Purpose Family History No Family History Records FoundNo Family History Records FoundNo Family History Records Found No data available for this section No Family History Records Found No data available for this section No data available for this section No Family History Records FoundNo Family History Records FoundNo Family History Records Found Advance Directives No Advanced Directives Records FoundNo Advanced Directives Records FoundNo Advanced Directives Records FoundNo Advanced Directives Records FoundNo Advanced Directives Records FoundNo Advanced Directives Records FoundNo Advanced Directives Records Found Additional Source Comments INFORMATION SOURCE (unrecogn ized section and content) DATE CREATED AUTHOR 11/04/2020 [facility] DATE CREATED AUTHOR AUTHOR'S ORGANIZ ATION 06/25/2021 [facility] DATE CREATED AUTHOR AUTHOR'S ORGANIZ ATION 09/03/2023 [facility] ([place]) DATE CREATED AUTHOR AUTHOR'S ORGANIZ ATION 09/22/2023 [facility] ([place] DATE CREATED AUTHOR AUTHOR'S ORGANIZ ATION 07/05/2025 [facility] DATE CREATED AUTHOR AUTHOR'S ORGANIZ ATION 07/10/2025 [facility] DATE CREATED AUTHOR AUTHOR'S ORGANIZ ATION 07/11/2025 [facility] Ambulatory Patient Care team informatio n (unrecognized section and content) Real Estate Management Specialist Relationship Specialty Start Date End Date Elvin Blanc PA-C [address] [facility] [employer] [facility] [place] [address] PCP - General Internal Medicine 09/12/23 Fercho Villaseñor DO [address] [employer] [place] [address] PCP - [facility]age PCP 07/23/23 Real Estate Management Specialist Relationship Specialty Start Date End Date Susan Fontana APRN-[employer] [address] [employer] [place] [address] PCP - General Family Medicine 10/03/24 Reason for Visit (unrecogniz ed section and content) Reason Comments Establish Care Patient here to get established as a new patient and transferring from [place].Patient dx with COPD, seen in ER last week for SOB and put on Oxygen 2 liters daily.Colonoscopy, mammogram and pap test done over 10 years, bone density never done. Reason Comments 1 year visit FOR RECORDS PERTAINING TO PATIENTS WHO ARE OR HAVE BEEN ENROLLED IN A CHEMICAL DEPENDENCY/SUBSTANCEABUSE PROGRAM, SOME INFORMATION MAY BE OMITTED. This clinical summary was aggregated from multiple sources. Caution should be exercised in using it in the provision of clinical care. This summary normalizes information from multiple sources, and as a consequence, information in this document may materially change the coding, format and clinical context of patient data. In addition, data may be omitted in some cases. CLINICAL DECISIONS SHOULD BE BASED ON THE PRIMARY CLINICAL RECORDS. [employer] provides no warranty or guarantee of the accuracy or completeness of information in this document.
[2025-07-16 03:48] LABS: Differential Indicated SCAN CRITERIA MET
[2025-07-16] MEDS: Propofol 10MG/Ml 1,000 MG/100 ML Bottle 3.2 MG CONT INF (03:56)
[2025-07-16 04:03] LABS: Base Excess -9 mmol/L (-2 to +2); FI02 50.0; PEEP 5; PO2 73 mmHG (75-100); RR 20; SITE L Radial; SO2 86 % (95-99); Time Given 04:00:19
[2025-07-16] MEDS: Nitroglycerin Infusion 250 ML 60 MG CONT INF (04:03)
[2025-07-16 04:04] LABS: CPK Total, Creatine Kinase 126 U/L (24-195); Triglycerides 67 mg/dL
[2025-07-16 04:06] LABS: Pro- Brain NATRIURETIC PEPTIDE 7963 pg/mL (<=900)
[2025-07-16 04:08] LABS: AST(SGOT) 158 U/L (<=31); Alanine Aminotransfer ALT/SGPT 118 U/L (<=34); Albumin, Serum 3.8 g/dL (3.4-4.8); Alkaline Phosphatase 163 U/L (35-104); Anion Gap 15 (5-15); BUN 17 mg/dL (4-19); BUN/Creat Ratio 13.1 RATIO (10-20); Calcium,Total 8.5 mg/dL (7.6-11.0); Carbon Dioxide 21.7 mmol/L (21.0-32.0); Chloride 100 mmol/L (98-108); Estimated Creatinine Clearance 34.32 ml/min (50-250); Globulin 3.1 g/dL (2.2-4.2); Glucose 368 mg/dL (70-99); Potassium 3.7 mmol/L (3.3-5.1)
--- NOTE | 2025-07-16 04:13 | HP.PCM.HOS_ITS ---
HPI - General General Date of Service: 07/16/25 Chief Complaint: SOB. HPI Narrative ZABRINA HSU, is a 70 F with a past medical history of essential hypertension; on lisinopril, hyperlipidemia; on atorvastatin, chronic tobacco abuse x ~46 years, CAD; s/p stents x 3 RCA + LAD x 1 (2016) on BASA plus prn SL NTG, history of apical variant hypertrophic cardiomyopathy per MRI (2017), history of nonrheumatic mitral regurgitation, history of myocardial fibrosis, history of inducible AVNRT, tobacco abuse; with subsequent COPD, pulmonary hypertension, OAB; on oxybutynin, depression; on venlafaxine, glaucoma; on brimonidine daily and dorzolamide eyes drops TID, history of hysterectomy and OA who presents to [facility] ER complaining of SOB. Ms. Hsu was noted to be in respiratory distress upon arrival to the ER causing her to be immediately started ion BiPAP prior to being intubated so information was gathered from chart, medical staff and computer. In the ER she was noted to have a highly elevated blood pressure of 257/127 mmHg present on admission consistent with Hypertensive Emergency complicated by an elevated NT pro-BNP II of 7,963 pg/mL present on admission due to AE of CHF compounded by clinical evidence of AE COPD with Acute Hypoxic and Hypercapnic Respiratory Failure evidenced by ABG pH 7.06/ PCO2 75.1 mmHg/ PO2 73 mmHg/ HCO3 21.2 mmHg @ 86% on AC vent 400 with 5 PEEP on 50% FiO2 along with Leukocytosis of 13.1K with Left- shift of 2.9% and Lactic Acidosis of 3.2 mmol/L concerning for Sepsis in addition to Transaminitis; AST 158 U/L, ALT 118 U/L and Alkaline Phosphatase 163 U/L plus Hyperglycemia of 368 mg/dL present on admission. She was then admitted to the ICU for ongoing care for a stay that is expected to extend beyond 2 midnights. [facility] Medical History 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 Non-rheumatic mitral regurgitation Depression Anxiety Pulmonary hypertension Essential hypertension Pure hypercholesterolemia Atherosclerotic heart disease of [place] coronary artery without angina pectoris Home Medications ?Medication ?Instructions ?Recorded ?Last Taken ?Type aspirin 81 mg tablet,delayed 81 mg PO DAILY 07/08/19 U nknown History release (Adult Low Dose Aspirin) atorvastatin 40 mg tablet 40 mg PO QHS PRN 07/08/19 Un known History nitroglycerin 0.4 mg sublingual 0.4 mg sublingual Q5-1 5M PRN chest 07/08/19 Unknown History tablet pain oxybutynin chloride 10 mg 10 mg PO DAILY 07/08/19 Unkn own History tablet,extended release 24 hr venlafaxine 75 mg tablet 75 mg PO BID 07/08/19 Unknow n History albuterol sulfate 90 mcg/actuation 2 puff inhalation Q 4H PRN 12/23/20 Unknown Rx aerosol inhaler (Ventolin HFA) shortness of breath or wheezing #8.5 grams brimonidine 0.2 % eye drops ml ophthalmic (eye) Unknown History dorzolamide 2 % eye drops 1 drp ophthalmic (eye) TID 0 06/16/21 Unknown History lisinopril 20 mg tablet 20 mg PO DAILY #90 tabs 05/24 03/12 Unknown Rx Allergy/AdvReac Type Severity Reaction Status Date / Time No Known Allergies Allergy Unverified 06/16/21 14:41 Family History Mother Diabetes Surgical History History of coronary artery stent placement (01/02/17) History of hysterectomy Social History Smoking Status: Current every day smoker tobacco type: cigarettes Tobacco: How many years used: 46 second hand exposure: Yes alcohol intake: never substance use type: does not use caffeine: Yes Type: coffee ROS ROS Narrative ROS was not possible with patient intubated and sedated. Vital Signs Vital Signs Vital Signs: 07/16/25 03:07 07/16/25 03:19 07/16/25 03:19 Temperature 97 F L Temperature Source Temporal Pulse Rate 91 95 Respiratory Rate 30 H 20 H Respiratory Effort Labored Accessory Muscle Use Respiratory Depth Deep Respiratory Pattern Normal Blood Pressure 257/98 H Blood Pressure Mean 151 Pulse Ox 96 95 Oxygen Delivery Method Nasal Cannula Oxygen Flow Rate (L/min) 15 Fraction of Inspired Oxygen (FIO2) 75 07/16/25 03:52 07/16/25 03:53 07/16/25 03:55 Temperature 96.6 F L Temperature Source Core Pulse Rate 101 H Respiratory Rate 17 Respiratory Effort Mechanically Ventilated Respiratory Depth Respiratory Pattern Blood Pressure 247/111 H Blood Pressure Mean 156 Pulse Ox 95 Oxygen Delivery Method Mechanical Ventilator Mechanical Ventilator Oxygen Flow Rate (L/min) Fraction of Inspired Oxygen (FIO2) 75 07/16/25 04:00 07/16/25 04:03 Temperature Temperature Source Pulse Rate 95 111 H Respiratory Rate 20 H Respiratory Effort Respiratory Depth Respiratory Pattern Normal Blood Pressure 257/127 H Blood Pressure Mean Pulse Ox Oxygen Delivery Method Oxygen Flow Rate (L/min) Fraction of Inspired Oxygen (FIO2) Weight Weight: 117 lb 15.157 oz Body Mass Index (BMI) 20.2 Physical Exam Const Constitutional Narrative: Patient is intubated and sedated on mechanical ventilator. HEENT normocephalic and head/scalp atraumatic Eyes PERRL, EOMs intact bilaterally and conjunctivae normal Neck no lymphadenopathy and supple Resp Resp Narrative: Diffuse wheezing with air movement throughout. Cardio regular rate and regular rhythm GI normal to inspection, nondistended, normoactive bowel sounds, soft to palpation, non-tender and non-distended Extremity normal to inspection, full ROM and no clubbing, cyanosis or edema Skin Skin Narrative: Patient has no evidence of rash, abscess, wounds or jaundice. Neuro Neuro Narrative: Patient is intubated and sedated on mechanical ventilator. Results Medical Records Data Attestation: I reviewed the patient's medical records Lab / Micro Data Attestation: I reviewed the patient's lab results. 07/16/25 03:20 07/16/25 03:20 Labs: Laboratory Results - last 24 hr 07/16/25 03:20: WBC 13.1 H, RBC 3.95 L, Hgb 11.6 L, Hct 37.9, MCV 95.9, MCH 29.4, MCHC 30.6 L, RDW Std Deviation 51.3 H, RDW Coeff of Shivam 14.6, Plt Count 411, MPV 9.7, Immature Gran % (Auto) 2.900 H, Neut % (Auto) 30.6 L, Lymph % (Auto) 56.5 H, [place] % (Auto) 6.4, Eos % (Auto) 2.7, Baso % (Auto) 0.9, Absolute Neuts (auto) 4.0, Absolute Lymphs (auto) 7.43 H, Nucleated RBC % 0, Sodium 137, Potassium 3.7, Chloride 100, Carbon Dioxide 21.7, Anion Gap 15, BUN 17, C reatinine 1.27 H, Estim Creat Clear Calc 34.32 L, Est GFR (MDRD) Non-Af 45 L, BUN/Creatinine Ratio 13.1, Glucose 368 H, Calcium 8.5, Total Bilirubin 0.34, AST 158 H, ALT 118 H, Alkaline Phosphatase 163 H, Total Creatine Kinase 126, NT pro BNP II 7963 H, Total Protein 6.9, Albumin 3.8, Globulin 3.1, Albumin/Globulin Ratio 1.2, Triglycerides 67 ABG Data ABG results: ABG 07/16/25 03:58 Specimen Type ART Sample Site L Radial pH 7.06 L* Bicarbonate Actual 21.2 L Total CO2 24 Base Excess -9 L O2 Saturation 86 L O2 % 50.0 ABG pCO2 75.1 H* ABG pO2 73 L Steve Test N/A Respiration Rate 20 O2 Delivery Device Adult Vent Vent Mode AC Tidal Volume 400.0 POC PEEP 5 Crit Call To/Read Back Yes Blood Gas Notified Whom Dr Sharif Blood Gas Notified Time 04:00:19 Imaging [facility] Imaging Services [address] [place] [address] [id number] Brain/Head without Contrast MR#: [id number] Acct: [id number] Name: ZABRINA HSU Rep #: [id number] : 1955 F 70 From: Shimon Santos MD PCP: SEUN Alvarez Status: REG ER Study: Brain/Head without Contrast Date of Exam: 07/16/25 Exam# [id number] Ordering Dr: Bernardo Sharif DO EXAM: NONCONTRAST CT SCAN OF THE HEAD CLINICAL HISTORY: AMS COMPARISON: None TECHNIQUE: Serial axial series through the head were obtained without contrast. 2-D coronal and sagittal reformats were then obtained. DLP = 745 mGy-cm FINDINGS: Brain: There is no acute large territorial infarct, intracranial hemorrhage, midline shift or mass effect. There are atherosclerotic vascular calcifications involving the bilateral carotid siphons. The sella and pineal gland regions appear unremarkable. There is low-density in the deep white matter on the right and left, and in the right occipital lobe consistent with chronic ischemic change. There is no evidence of cerebellar tonsillar herniation. Ventricles: There is no acute hydrocephalus. Basilar cisterns are patent. Paranasal sinuses: Well-aerated Mastoid air cells: Well-aerated. Calvarium: The bony calvarium is intact. Orbits: The bilateral globes are symmetric, without retrobulbar compressive mass lesion or hemorrhage. CT/Brain/Head without Contrast IMPRESSION: There is low-density in the deep white matter on the right and left, and in the right occipital lobe consistent with chronic ischemic change. No acute intracranial pathology. Consider MRI with diffusion scan, or CT perfusion to exclude an acute component. Reading Location: [facility] CC: SEUN Ozuna; Dr. Bernardo Sharif DO ~ Ground Instructor Advanced: Signed [facility] Imaging Services [address] [place] [id number] CTA Chest W/WO Contrast MR#: [id number] Acct: [id number] Name: ZABRINA HSU Rep #: [id number] : 1955 F 70 From: Aleksandr Levine MD PCP: Melissa Laith, MERCHANDISE ADJUSTMENT CLERK-C Status: REG ER Study: CTA Chest W/WO Contrast Date of Exam: 07/16/25 Exam# [id number] Ordering Dr: Bernardo Sharif DO PROCEDURE: CTA CHEST W/WO CONTRAST 07/16/2025 REASON FOR EXAM: HYPOXIA TECHNIQUE: Procedure Code: [id number] Modality: CT Procedure: CTA CHEST W/WO CONTRAST Multiplanar Sagittal and Coronal images were obtained. CONTRAST: Isovue 370 VOLUME: 100 mL One or more dose reduction techniques were used (e.g., Automated exposure control, adjustment of the mA and/or kV according to patient size, use of iterative reconstruction technique). RADIATION DOSE SUMMARY: CTDlvol: 25.23 mGy DLP: 345.21 mGycm COMPARISON: No recent studies, previous chest CT from 2020 # of known CTs in the past 12 months: 0 # of known Cardiac Nuclear Medicine Studies in the past 12 months: 0 FINDINGS: Patient is intubated, tip of the ET tube is in the right mainstem bronchus and should be retracted 3-4 cm. NG tube tip is in the body of the stomach The pulmonary arteries enhance avidly. No evidence of low-density filling defect to suspect PE. Peripheral calcifications are noted in the thoracic aorta no demonstrated aneurysm I can not evaluate for dissection due to lack of IV contrast within the majority of the thoracic aorta. There are calcified coronary vessels. Lung windows show underlying emphysema with superimposed interstitial edema and chronic interstitial changes with free-flowing bilateral pleural effusions, and bibasilar atelectasis with diffuse peribronchial thickening. Findings suggest a combination of CHF and superimposed bronchitis and pneumonitis. The soft tissue windows show a normal-appearing thyroid gland. No suspicious axillary, mediastinal or perihilar adenopathy. Bony structures show degenerative change. Limited cuts through the upper abdomen show diffuse atherosclerotic calcifications and nonobstructing bilateral renal stones. CT/CTA Chest W/WO Contrast IMPRESSION: No demonstrated PE, or thoracic aortic aneurysm Underlying emphysema with superimposed CHF, pneumonitis, bronchitis, free- flowing bilateral pleural effusions and bibasilar atelectasis ETT tip is in the right mainstem bronchus and should be retracted 3-4 cm, NG tube tip in satisfactory position No suspicious adenopathy Degenerative bony changes [place] Alert: ET tube tip in the SADAF The critical findings in the findings and impression above were relayed directly by me by telephone to Bernardo Sharif on 07/16/2025 at 6:56 am with readback verification. Reading Location: [id number] CC: SEUN Ozuna; Dr. Bernardo Sharif DO ~ Ground Instructor Advanced: Signed Assessment & Plan Assessment/Plan (1) COPD exacerbation: (2) Pneumonia: QUALIFIERS: Pneumonia type: due to unspecified organism L aterality: bilateral Lung location: unspecified part of lung Qualified Code(s): J18.9 - Pneumonia, unspecified organism (3) Acute hypoxic on chronic hypercapnic respiratory failure: (4) CHF exacerbation: QUALIFIERS: Heart failure type: unspecified Qualified Code(s): I 50.9 - Heart failure, unspecified (5) Elevated troponin: (6) Hypertensive emergency: (7) Sepsis: QUALIFIERS: Acute respiratory failure type: with hypercapnia S epsis acute organ dysfunction status: with acute organ dysfunction Sepsis type: sepsis due to unspecified organism Severe sepsis acute organ dysfunction type: acute respiratory failure Severe sepsis shock status: without septic shock Q ualified Code(s): A41.9 - Sepsis, unspecified organism; R65.20 - Severe sepsis without septic shock; J96.02 - Acute respiratory failure with hypercapnia (8) Leukocytosis: QUALIFIERS: Leukocytosis type: bandemia Qualified Code(s): D 72.825 - Bandemia (9) Lactic acidosis: (10) Transaminitis: (11) Hyperglycemia: PLAN: Plan 1. AE COPD with Acute Hypoxic and Hypercapnic Respiratory Failure evidenced by ABG pH 7.06/ PCO2 75.1 mmHg/ PO2 73 mmHg/ HCO3 21.2 mmHg @ 86% on AC vent 400 with 5 PEEP on 50% FiO2 in the setting of previously known Chronic Tobacco Abuse and Pulmonary Hypertension - Admit to ICU. Start IV methylprednisolone and give scheduled plus prn nebulizers. Wean ventilator as tolerated. Check viral respiratory panel. Tobacco Cessation will be strongly encouraged after extubation with Nicotine patch offered to control cravings. CTA of chest could not be done immediately due to patient instability and is pending at this time to confirm suspicion of Pneumonia with ER physician notified to retract ET tube. Finally, we will consult pulmonary/critical care to this patient on rounds in the AM for further recommendations with help appreciated in advance. 2. Elevated NT pro-BNP II of 7,963 pg/mL with elevated Troponin of 114 ng/L both present on admission due to AE of CHF of uncertain type complicating #1 - Give furosemide IV daily plus supplemental KCl and magnesium. Check echocardiogram to evaluate LVEF. Increased troponin suspected to be due to acute cardiac strain arising from #1 & #3. 3. Highly elevated blood pressure of 257/127 mmHg present on admission consistent with Hypertensive Emergency due to #1 & #2 in the setting of previously known Essential Hypertension - Patient will be treated with IV furosemide for #2 in addition to hydralazine IV prn for systolic blood pressure > 180mmHg. 4. Leukocytosis of 13.1K with Left-shift of 2.9% and Lactic Acidosis of 3.2 mmol/L concerning for Sepsis compounding #1 - #3 - Start empiric IV vancomycin and IV piperacillin-tazobactam and await culture & sensitivity data. Viral respiratory panel pending for #1. Patient did not receive Sepsis fluid bolus due to #2. 5. Transaminitis; AST 158 U/L, ALT 118 U/L and Alkaline Phosphatase 163 U/L present on admission adding to the medical complexity of #1 - #4 - Check CT scan of abdomen and pelvis to evaluate for liver pathology. Check hepatitis profile. 6. Hyperglycemia of 368 mg/dL present on admission suspicious for DM-2 adding to the burden of disease outlined from #1 - #5 - Check HgbA1c to confirm suspicion of DM-2. Check FSBS q. 4 hours and cover with SSI. 7. CAD; s/p stents x 3 RCA + LAD x 1 (2017) on BASA plus prn SL NTG - Continue BASA daily and serialize troponin. 8. History of apical variant hypertrophic cardiomyopathy per MRI (2017) - Noted. 9. History of myocardial fibrosis - Noted. 10. History of nonrheumatic mitral regurgitation - Check echocardiogram this admission as outlined in #2. 11. History of inducible AVNRT - Noted with no evidence of recurrence at this time. 12. Hyperlipidemia; on atorvastatin - Maintain statin and check Lipid Profile. 13. OAB; on oxybutynin - Continue present therapy. 14. Depression; on venlafaxine - Restart this agent after extubation. 15. Glaucoma; on brimonidine daily and dorzolamide eyes drops TID - Maintain current therapy. 16. History of hysterectomy - Noted. 17. OA -Stable. 18. DVT/GI prophylaxis - Lovenox 40 mg sq daily plus SCD's. Pantoprazole 40 mg IV daily. Total time: Approximately (but not less than) 75 minutes. Sepsis Attestation Sepsis Alert: Yes Sepsis Attestation: Agree w/Sepsis Date exam was performed: 07/16/25 Time exam was performed: 06:40 Possible Source of Sepsis: Pulmonary Sepsis Organ Dysfunction Criteria Present: Acute Respiratory Failure (New need for BiPAP/CPAP or MV), Lactic Acid > 2 mmol/L and New/Unexplained change in mental status Fluid Resuscitation Fluid resuscitation indicated?: Yes Fluid Resuscitation ordered: Lesser volume fluid bolus ordered Amount of fluid ordered: 0 Reason for lesser fluid bolus:: Concern for fluid overload and Heart failure Sepsis Note Date exam was performed: 07/16/25 Time exam was performed: 07:00 Sepsis Attestation: Sepsis re-evaluation was performed Response to fluids: Fluid responsive hypotension Charges/Coding Visit Charges Inpatient E&M: 40396 Init Hosp L3
[2025-07-16] MEDS: Midazolam 5 MG/ML Syringe IV (04:18)
[2025-07-16 04:23] LABS: Differential Comment SCANNED
--- NOTE | 2025-07-16 04:27 | ED.RN ---
no family present. Attempted to call Dave- contact from patients chart. No answer, message was left.
[2025-07-16] MEDS: Midazolam 50 MG in 0.9% Normal Saline (100mL Bag) 90 ML CONT INF (04:30)
--- NOTE | 2025-07-16 04:49 | EKG12_ITS ---
Test Reason : TACHY Blood Pressure : */* mmHG Vent. Rate : 128 BPM Atrial Rate : 128 BPM P-R Int : 134 ms QRS Dur : 80 ms QT Int : 346 ms P-R-T Axes : 70 68 95 degrees QTcB Int : 505 ms Sinus tachycardia with Premature atrial complexes with Aberrant conduction ST depression, consider subendocardial injury Nonspecific T wave abnormality Abnormal ECG Baseline artifact affects reading of rhythm Confirmed by David Colindres ([id number]), development editor PETER COWAN ([id number]) on 07/17/2025 6:01:08 AM Referred By: ELIZABETH Confirmed By: David Colindres
[2025-07-16] MEDS: Sodium Bicarbonate 8.4% 50 ML Syringe 50 MEQ IV (05:03)
[2025-07-16 05:18] LABS: Troponin T High Sensitivity 114 ng/L (<=14)
[2025-07-16 05:25] LABS: Magnesium 2.8 mg/dL (1.5-2.2)
[2025-07-16 06:23] LABS: Troponin T High Sens 2 HR 95 ng/L (<=14)
--- NOTE | 2025-07-16 06:31 | ECHOD_ITS ---
Reason For Study Reason For Study: CHF Procedure This was a 2D Doppler, Color Flow transthoracic echocardiogram. Exam performed portable in ICU/CCU. Left Ventricle Normal LV size. Mild concentric left ventricular hypertrophy. Inferior hypokinesis. Estimated LVEF 55%. Stage I diastolic dysfunction. Right Ventricle Normal right ventricle. Atria The left and right atria are normal. Mitral Valve Moderate posterior mitral valve annular calcification. Calcified chord. Mild mitral valve regurgitation. Tricuspid Valve Mild tricuspid valve insufficiency. Normal pulmonary artery pressure. Aortic Valve Mildly calcified aortic valve leaflets. Aortic valve sclerosis without stenosis. Pulmonic Valve Mild (1+) pulmonic valve insufficiency. Great Vessels Normal sized aortic root. Pericardium/Pleural No pericardial effusion. MMode/2D Measurements & Calculations LVIDd: 3.9 cm IVSd: 1.1 cm Ao root diam: 3.0 cm LVIDs: 2.9 cm LVPWd: 1.2 cm RVDd: 3.3 cm FS: 23.6 % LAV(MOD-bp): 29.6 ml LVAd ap4: 21.4 cm2 SV(MOD-sp4): 30.5 ml LAV(MOD-bp) Indexed: 19.0 ml/m2 LVLd ap4: 6.3 cm SI(MOD-sp4): 19.6 ml/m2 LAV(MOD-sp2): 33.7 ml EDV(MOD-sp4): 61.7 ml LAV(MOD-sp4): 21.8 ml EDV(sp4-el): 62.3 ml LVAs ap4: 14.1 cm2 LVLs ap4: 5.5 cm ESV(MOD-sp4): 31.2 ml ESV(sp4-el): 30.7 ml EF(MOD-sp4): 49.4 % EF(sp4-el): 50.7 % SV(sp4-el): 31.6 ml LA A4 area: 10.9 cm2 LA dimension(2D): 3.1 cm RA A4 area: 11.8 cm2 Time Measurements MV dec time: 0.21 sec Doppler Measurements & Calculations MV E max andrea: 89.4 cm/sec Lat Peak E' Andrea: 4.6 cm/sec Med Peak E' Andrea: 4.8 cm/sec MV A max andrea: 72.6 cm/sec E/E' lat: 19.2 E/E' med: 18.5 MV E/A: 1.2 MV V2 max: 109.5 cm/sec MV P1/2t max andrea: 110.4 cm/sec Ao V2 max: 97.2 cm/sec MV max P.8 mmHg MV P1/2t: 69.5 msec Ao max P.8 mmHg MV V2 mean: 55.0 cm/sec Ao V2 mean: 68.0 cm/sec MV mean P.4 mmHg MV dec slope: 465.3 cm/sec2 Ao mean P.1 mmHg MV V2 VTI: 29.6 cm MVA(P1/2t): 3.2 cm2 Ao V2 VTI: 22.9 cm AV (velocity ratio): 0.70 LV V1 max: 65.8 cm/sec MR max andrea: 653.0 cm/sec PA V2 max: 81.4 cm/sec LV V1 max P.7 mmHg MR max P.6 mmHg PA V2 mean: 63.9 cm/sec LV V1 mean P.1 mmHg LV V1 mean: 50.3 cm/sec LV V1 VTI: 16.1 cm TR max andrea: 239.8 cm/sec TR max P.0 mmHg ECHO/Echo Complete Interpretation Summary Mild concentric left ventricular hypertrophy. Inferior hypokinesis. Estimated LVEF 55%. Stage I diastolic dysfunction. Moderate posterior mitral valve annular calcification. Calcified chord. Mild mi tral valve regurgitation. Mild tricuspid valve insufficiency. Mildly calcified aortic valve leaflets. Aortic valve sclerosis without stenosis . Mild (1+) pulmonic valve insufficiency. Ordering Physician: Clarence Zuniga Performed By: Jake Miguel RCS
--- NOTE | 2025-07-16 06:40 | CT_ITS ---
PROCEDURE: ABDOMEN/PELVIS WITHOUT CONT 07/16/2025 REASON FOR EXAM: TRANSAMINITIS AND SEPSIS. TECHNIQUE: Procedure Code: [id number] Modality: CT Procedure: ABDOMEN/PELVIS WITHOUT CONT Noncontrast technique limits evaluation of the abdominal and pelvic viscera. Coronal and Sagittal reconstruction series were provided. One or more dose reduction techniques were used (e.g., Automated exposure control, adjustment of the mA and/or kV according to patient size, use of iterative reconstruction technique). RADIATION DOSE SUMMARY: CTDlvol: 6.15 mGy DLP: 276.33 mGycm COMPARISON: None FINDINGS: Lung bases: Reported on a separate study also performed today Liver: Normal size. No obvious mass. Gallbladder: Unremarkable Spleen: Normal size. Pancreas: Normal size. No surrounding inflammation. Adrenals: Unremarkable Kidneys: There is atrophy of the right kidney compared to the left. No obstructive uropathy or suspicious solid renal lesion. Bladder: Bladder is incompletely distended, contains a Madrigal catheter and air Reproductive Organs: Likely surgically absent Bowel: NG tube tip in the stomach. Small bowel loops are unremarkable, there is retained stool throughout the colon, no CT evidence of acute inflammation. Appendix: Not visualized Lymph nodes: No suspicious mesenteric or retroperitoneal lymphadenopathy Vasculature: Dense calcifications in the abdominal aorta and its branches without aneurysm. Peritoneum / Retroperitoneum: No free fluid or air Bones: Degenerative bony changes CT/Abdomen/Pelvis without Cont IMPRESSION: No suspicious solid organ abnormality, there is atrophy of the right kidney com pared to the left but no obstructive uropathy or suspicious solid renal lesion. Retained stool throughout the colon which may be impacted No free intraperitoneal fluid, air, or suspicious adenopathy NG tube tip in the body of the stomach Diffuse atherosclerosis Degenerative bony changes Reading Location: [id number]
--- NOTE | 2025-07-16 06:54 | ED.RN ---
Vita Alan, best friend [phone] called in to check on pt, informed that [facility] staff needed to speak to , she will go to his house and have him call ER.
--- NOTE | 2025-07-16 06:57 | ED.RN ---
delay in antibiotic administration due to patient being out of department for multiple CTs for about 40 minutes.
[2025-07-16] MEDS: Piperacil/Tazobactam 4.5 GM in 0.9% Normal Saline (100mL MB+) 100 ML IV (07:12)
--- OUTSIDE RECORDS SUMMARY | 2025-07-16 07:36 | XMS RPT_ITS | CCD ---
Author Organization [facility] Informat ion Partnership FRONT OFFICE ADMINISTRATOR [facility] Care Team Providers Care Accident Report Clerk Name Role Phone Opal Brambila Alpa Unavailable [...] Unavailable CEZAR PAREDES, TONG Consulting Unavailable Marizol SNUFF CONTAINER INSPECTOR-MATERIALS RESEARCH ENGINEER, Susan B Primary Care Provider RICKY JOHNSON-APRIL, [...] Admitting Unavailabl e PROVIDER, UNKNOWN Consulting Unavailable RICYK, ALFONSO Consulting Unavailable RICKY, ALFONSO Referring Unavailable [...] Unavailable EMILIO DERAS MD Consulting Unavailable RICKY SNUFF CONTAINER INSPECTOR-MATERIALS RESEARCH ENGINEER, ALFONSO K Primary Care Unavaila joe BRO MD, ROSINA Consulting Unavailable ROXIE MOREJON, JACQUELINE Red Consulting Unavailable ANNIE PAREDES, JHONNY Admitting Unavailable PAPI BAXTER MD Attending Unavailab radha SANTIAGO MD, DR GAN Consulting Unavailable RICKY SNUFF CONTAINER INSPECTOR-MATERIALS RESEARCH ENGINEER, ALFONSO K Primary Care Unavaila GENNY Colindres MD Consulting Unavailable ROSINA BRO MD Consulting Unavailable NORMA HAMILTON MD Consulting Unavailable OWEN BERNAL MD Consulting Unavailable SUSAN FONTANA Attending Unavailable SUSAN FONTANA Primary Care Unavailable Allergies Allergy Classification Reported Allergen(s) Allergy Type Date of Onset Reaction(s) Facility (2 sources) NKDA; 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: [NKDA] allergy to substance 7 [facility] Work Phone: [phone] NEGATED: Highlighted row has been ruled out! (1 source) Observed no known allergies at [facility] No Known Allergies 7 propensity to adverse reactions [facility] Work Phone: [phone] Medications Current Medications Medication Drug Class(es) Dates Sig (Normalized) Sig (Original) albuterol MDI (90 mcg/inh) CFC free inhalation aerosol (3 sources) Start: 09-06-2023 take 1 puff(s) by inhalation every four hours as needed for wheezing albuterol MDI (90 mcg/inh) CFC free inhalation aerosol 1 puff(s), Inhalation, q4h, PRN as needed for wheezing, # 8.5 gram(s), 3 Refill(s), Pharmacy: [facility], 157.5, cm, 09/02/23 6:47:00 EST, [...] wheezing, # 8.5 gram(s), 3 Refill(s), Pharmacy: [facility], 157.5, cm, 09/02/23 6:47:00 EST, [...] wheezing, # 8.5 gram(s), 3 Refill(s), Pharmacy: [facility], 157.5, cm, 09/02/23 6:47:00 EST, Height, kg, 09/02/23 6:47:00 EST, Dosing Weight Start Date: 09/06/23 Status: Ordered aspirin 81 mg delayed release oral tablet (6 sources) Nonsteroidal Anti-inflammatory Drug Start: 06-25-2025 End: 06-20-2026 aspirin 81 mg oral delayed release tablet Dose : 81 mg = 1 tab(s), Oral, Daily, # 90 tab(s), 3 Refill(s), Pharmacy: [facility], 160, cm, 06/16/25 9:24:00 EDT, Height, kg, [...] BID, # 180 tab(s), 0 Refill(s), Pharmacy: [facility], 157.5, cm, 11/04/24 11:10:00 EST, Height, kg, 11/04/24 11:10:00 EST, Dosing Weight Start Date: 11/28/24 Status: Ordered Medication Dispense Status: Completed Quantity: 180.0 Unit: tab(s) Total Allowed Fills: 1 Fills Dispensed: 0 Start: 01-22-2024 Coreg 6.25 mg oral tablet Dose : 6.25 mg = 1 tab(s), Oral, BID, # 180 tab(s), 3 Refill(s), Pharmacy: [facility], 157.5, cm, 01/22/24 16:06:00 EDT, Height, kg, 01/22/24 16:06:00 EDT, Dosing Weight Start Date: 01/22/24 Status: Ordered Quantity: 180.0 Unit: tab(s) Repeat number: 4 clopidogrel 75 mg oral tablet (6 sources) [id number] Platelet Inhibitor Start: 06-25-2025 End: 06-20-2026 Plavix 75 mg oral tablet Dose : 75 mg = 1 tab(s), Oral, qDay, # 90 tab(s), 3 Refill(s), Pharmacy: [facility], 160, cm, 06/16/25 9:24:00 EDT, Height, kg, [...] qDay, # 30 tab(s), 3 Refill(s), Pharmacy: [facility], 157.5, cm, 09/02/23 6:47:00 EST, Height, kg, 09/02/23 6:47:00 EST, Dosing Weight Start Date: 09/06/23 Status: Ordered ezetimibe 10 mg oral tablet (2 sources) Dietary Cholesterol Absorption Inhibitor Start: 05-16-2025 Zetia 10 mg oral ta blet Dose : 10 mg = 1 tab(s), Oral, qDay, appt needed for further refills, # 90 tab(s), 0 Refill(s), Pharmacy: [facility], 157.5, cm, 03/05/25 15:36:00 EDT, Height, kg, 03/05/25 15:36:00 EDT, Dosing Weight Start Date: 05/16/25 Status: Ordered Medication Dispense Status: Completed Quantity: 90.0 Unit: tab(s) Total Allowed Fills: 1 Fills Dispensed: 0 Start: 09-02-2024 Zetia 10 mg or al tablet Dose : 10 mg = 1 tab(s), Oral, qDay, # 90 tab(s), 1 Refill(s), Pharmacy: [facility], 157.5, cm, 02/22/24 16:04:00 EDT, Height, kg, 02/22/24 16:04:00 EDT, Dosing Weight Start Date: 09/02/24 Status: Ordered Quantity: 90.0 Unit: tab(s) Repeat number: 2 30 actuat fluticasone furoate 0.1 mg/actuat / umeclidinium 0.0625 mg/actuat / vilanterol 0.025 mg/actuat dry powder inhaler (2 sources) Anticholinergic, Corticosteroid, beta2-Adrenergic Agonist take 3 puff(s) by inhalation once daily szeaxpttdlm-qzsqfzvob-fkscmknw (Trelegy Ellipta) 100-62.5-25 mcg blister with device Inhale 3 puffs once daily. Active furosemide 40 mg oral tablet (6 sources) Loop Diuretic Sta rt: 5 End : Lasix 40 mg oral tablet Dose : 40 mg = 1 tab(s), Oral, qDay, # 90 tab(s), 1 Refill(s), Pharmacy: [facility], 160, cm, 06/16/25 9:24:00 EDT, [...] once daily OXYBUTYNIN CHLORIDE ER 10 MG [id number] One tablet by mouth daily (HOLD) OXYBUTYNIN CHLORIDE [id number] Sharron Nguyen RN microencapsulated potassium chloride 20 meq extended release oral tablet (2 sources) Start: 06-20-2024 Klor-Con M20 o ral tablet, extended release Dose : 20 mEq = 1 tab(s), Oral, BID, # 60 tab(s), 5 Refill(s), Pharmacy: [facility], 157.5, cm, 02/22/24 16:04:00 EDT, Height, kg, 02/22/24 16:04:00 EDT, Dosing Weight Start Date: 06/20/24 Status: Ordered Medication Dispense Status: Completed Quantity: 60.0 Unit: tab(s) Total Allowed Fills: 6 Fills Dispensed: 0 predniSONE 10 mg oral tablet (1 source) Start: 06-25-2025 End: 06-28-2025 predniSONE 10 mg oral tablet Dose : 10 mg = 1 tab(s), Oral, qDay, # 3 tab(s), 0 Refill(s), Pharmacy: [facility], 160, cm, 06/16/25 9:24:00 EDT, Height, kg, [...] qDay, # 60 tab(s), 3 Refill(s), Pharmacy: [facility], 157.5, cm, 09/02/23 6:47:00 EST, Height, kg, 09/02/23 6:47:00 EST, Dosing Weight Start Date: 09/06/23 Status: Ordered sacubitril 97 mg / valsartan 103 mg oral tablet (3 sources) Angiotensin 2 Receptor Cherelle Start: 05-15-2025 take 1 tablet by mouth twice daily Entresto 97 mg-103 mg oral tablet Dose = 1 tab(s), Oral, BID, # 180 tab(s), 2 Refill(s), Pharmacy: [facility], 157.5, cm, 03/05/25 15:36:00 EDT, Height, kg, 03/05/25 15:36:00 EDT, Dosing Weight Start Date: 03/06/25 Status: Ordered Medication Dispense Status: Completed Quantity: 180.0 Unit: tab(s) Total Allowed Fills: 3 Fills Dispensed: 0 Start: 01-22-2024 take 1 tablet by santos th twice daily Entresto 49 mg-51 mg oral tablet Dose = 1 tab(s), Oral, BID, # 180 tab(s), 3 Refill(s), Pharmacy: [facility], 157.5, cm, 01/22/24 16:06:00 EDT, Height, kg, 01/22/24 16:06:00 EDT, Dosing Weight Start Date: 01/22/24 Status: Ordered Quantity: 180.0 Unit: tab(s) Repeat number: 4 Start: 09-06-2023 take 1 tablet by santos th twice daily Entresto 24 mg-26 mg oral tablet Dose = 1 tab(s), Oral, BID, # 60 tab(s), 3 Refill(s), Pharmacy: [facility], 157.5, cm, 09/02/23 6:47:00 EST, Height, kg, 09/02/23 6:47:00 EST, Dosing Weight Start Date: 09/06/23 Status: Ordered spironolactone 25 mg oral tablet (1 source) Aldosterone Antagonist Start: 06-25-2025 End: 06-20-2026 Aldactone 25 mg oral tablet Dose : 25 mg = 1 tab(s), Oral, qDayM, # 90 tab(s), 3 Refill(s), Pharmacy: [facility], 160, cm, 06/16/25 9:24:00 EDT, Height, kg, [...] swallow)., # 60 EA, 3 Refill(s), Pharmacy: [facility], 157.5, cm, 09/02/23 6:47:00 EST, Height, kg, 09/02/23 6:47:00 EST, Dosing Weight Start Date: 09/06/23 Status: Ordered Completed/Discontinued Medications Medication Drug Class(es) Dates Sig (Normalized) Sig (Original) ALBUTEROL SULFATE (3 sources) beta2-Adrenergic Agonist Start: 01-12-2017 PROVENTIL HFA 108 (90 Base) MCG/ACT AERS every 6 hrs as needed ALBUTEROL SULFATE [id number] Juanjo Marr MD take 2 puff(s) by in halation four times daily albuterol 90 mcg/actuation inhaler Inhal e 2 puffs 4 times a day. Active atorvastatin 40 mg oral tablet (1 source) HMG-CoA Reductase Inhibitor Start: 01-06-2017 take 1 tablet by mouth once daily ATORVASTATIN CALCIUM 40 MG TABS One tablet by mouth daily ATORVASTATIN CALCIUM [id number] Rashida Hampton RN Labetalol (1 source) beta-Adrenergic [...] BIDM, # 60 tab(s), 3 Refill(s), Pharmacy: [facility], 157.5, cm, 09/02/23 6:47:00 EST, [...] tablet by mouth twice daily METOPROLOL TARTRATE [id number] Rashida Hampton RN Start: 01-06-2017 take 0.5 tablet by m outh once daily METOPROLOL SUCCINATE ER 25 MG [id number] One-half tablet by mouth daily METOPROLOL SUCCINATE [id number] Juanjo Marr MD nitroglycerin 0.4 mg sublingual tablet (1 source) Nitrate Vasodilator Start: 01-12-2017 NITROGLYCE RIN 0.4 MG SUBL 1 tablet under the tongue every 5 minutes times 3 as needed for chest pain. 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] Onset: 01-06-2017 01-06-2017 Episodic Other aftercare (1 source) custodial (current) use of aspirin; 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: [terminal worker (current) use of aspirin] Onset: 11-04-2024 Episodic Other aftercare (1 source) custodial (current) use of antithrombotics/an tiplatelets; 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: [custodial (current) use of antithrombotics/an tiplatelets] Onset: 11-04-2024 [...] Basophil, Absolute 0.0 10 3/mcL Normal 0.0-0.3 [facility] Comment on above: Performed By: #### C BC, ADIFF, ANEU, APTT, CMP, HFP, GFR #### [address] [address] Basophils/100 WBC (Bld) 0.1 % Normal 0.0-2.5 [facility] Comment on above: Performed By: #### C BC, ADIFF, ANEU, APTT, CMP, HFP, GFR #### [address] [address] Eosinophil, Absolute 0.0 10 3/mcL Normal 0.0-0.7 [facility] Comment on above: Performed By: #### C BC, ADIFF, ANEU, APTT, CMP, HFP, GFR #### [address] [address] Eosinophils/100 WBC (Bld) 0.2 % Normal 0.0-6.0 [facility] Comment on above: Performed By: #### C BC, ADIFF, ANEU, APTT, CMP, HFP, GFR #### [address] [address] Lymphocyte, Absolute 0.9 10 3/mcL Normal 0.9-4.3 [facility] Comment on above: Performed By: #### C BC, ADIFF, ANEU, APTT, CMP, HFP, GFR #### [address] [address] Lymphocytes/100 WBC (Bld) 9.0 % Low 20.0-40.0 [facility] Comment on above: Performed By: #### C BC, ADIFF, ANEU, APTT, CMP, HFP, GFR #### [facility] [address] [place] [address] Monocyte, Absolute 0.4 10 3/mcL Normal 0.1-1.4 [facility] Comment on above: Performed By: #### C BC, ADIFF, ANEU, APTT, CMP, HFP, GFR #### [facility] [address] [place] [address] Monocytes/100 WBC (Bld) 3.9 % Normal 2.0-13.0 [facility] Comment on above: Performed By: #### C BC, ADIFF, ANEU, APTT, CMP, HFP, GFR #### [address] [address] Neutrophils/100 WBC (Bld) 86.8 % High 50.0-75.0 [facility] Comment on above: Performed By: #### C BC, ADIFF, ANEU, APTT, CMP, HFP, GFR #### [address] [address] .GFRon 06-25-2025 Estimated Glomerular Filtration Rate 63 ml/min/1.73sqm Normal [facility] Comment on above: Result Comment: Stages [...] ADIFF, ANEU, APTT, CMP, HFP, GFR #### [address] [address] .NEUABSon 06-25-2025 Neutrophil, Absolute 8.6 10 3/mcL High 2.3-8.1 [facility] Comment on above: Performed By: #### C BC, ADIFF, ANEU, APTT, CMP, HFP, GFR #### [address] [address] BMPon 06-25-2025 BUN/Creatinine Ratio 19.8 ratio Normal 10.0-22.0 [facility] Comment on above: Performed By: #### C BC, ADIFF, ANEU, APTT, CMP, HFP, GFR #### [address] [address] Calcium [Mass/Vol] 8.8 mg/dL Normal 8.7-10.4 [facility] Comment on above: Performed By: #### C BC, ADIFF, ANEU, APTT, CMP, HFP, GFR #### [address] [address] Chloride [Moles/Vol] 104 mmol/L Normal 98-110 [facility] Comment on above: Performed By: #### C BC, ADIFF, ANEU, APTT, CMP, HFP, GFR #### [address] [address] CO2 [Moles/Vol] 24 mmol/L Normal 22-32 [facility] Comment on above: Performed By: #### C BC, ADIFF, ANEU, APTT, CMP, HFP, GFR #### [address] [address] Creatinine [Mass/Vol] 0.96 mg/dL Normal 0.50-1.20 [facility] Comment on above: Result Comment: Test ing performed on EcoDom[employer] analyzer using enzymatic creatinine methodology. Performed By: #### C BC, ADIFF, ANEU, APTT, CMP, HFP, GFR #### [address] [address] Electrolyte Balance 9.0 mEq/L Normal 4.0-15.0 [facility] Comment on above: Performed By: #### C BC, ADIFF, ANEU, APTT, CMP, HFP, GFR #### [address] [address] Glucose [Mass/Vol] 134 mg/dL High 82-115 [facility] Comment on above: Performed By: #### C BC, ADIFF, ANEU, APTT, CMP, HFP, GFR #### [place] [phone] Potassium [Moles/Vol] 4.6 mmol/L Normal 3.5-5.0 [facility] Comment on above: Performed By: #### C BC, ADIFF, ANEU, APTT, CMP, HFP, GFR #### [place] [phone] Sodium [Moles/Vol] 137 mmol/L Normal 136-145 [facility] Comment on above: Performed By: #### C BC, ADIFF, ANEU, APTT, CMP, HFP, GFR #### [place] [address] Urea nitrogen [Mass/Vol] 19.0 mg/dL Normal 8.0-22.0 [facility] Comment on above: Performed By: #### C BC, ADIFF, ANEU, APTT, CMP, HFP, GFR #### [place] [id number] CBCon 06-25-2025 Erythrocyte distribution width (RBC) [Ratio] 14.7 % Normal 11.5-15.5 [facility] Comment on above: Performed By: #### C BC, ADIFF, ANEU, APTT, CMP, HFP, GFR #### [place] [address] Hematocrit (Bld) [Volume fraction] 33.3 % Low 34.0-46.0 [facility] Comment on above: Performed By: #### C BC, ADIFF, ANEU, APTT, CMP, HFP, GFR #### [place] [address] Hgb 11.1 G/dL Low 12.0-16.0 [facility] Comment on above: Performed By: #### C BC, ADIFF, ANEU, APTT, CMP, HFP, GFR #### [place] [address] MCH (RBC) [Entitic mass] 29.4 pg Normal 27.0-33.0 [facility] Comment on above: Performed By: #### C BC, ADIFF, ANEU, APTT, CMP, HFP, GFR #### [place] [address] MCHC 33.3 G/dL Normal 32.0-36.0 [facility] Comment on above: Performed By: #### C BC, ADIFF, ANEU, APTT, CMP, HFP, GFR #### [place] [address] MCV (RBC) [Entitic vol] 88.5 fL Normal 80.0-99.0 [facility] Comment on above: Performed By: #### C BC, ADIFF, ANEU, APTT, CMP, HFP, GFR #### [place] [address] Platelet 341 10 3/mcL Normal 150-450 [facility] Comment on above: Performed By: #### C BC, ADIFF, ANEU, APTT, CMP, HFP, GFR #### [place] [address] Platelet mean volume (Bld) [Entitic vol] 8.0 fL Normal 6.6-10.5 [facility] Comment on above: Performed By: #### C BC, ADIFF, ANEU, APTT, CMP, HFP, GFR #### [place] [address] RBC 3.77 10 6/mcL Low 4.10-5.30 [facility] Comment on above: Performed By: #### C BC, ADIFF, ANEU, APTT, CMP, HFP, GFR #### [place] [address] WBC 10.0 10 3/mcL Normal 4.5-10.8 [facility] Comment on above: Performed By: #### C BC, ADIFF, ANEU, APTT, CMP, HFP, GFR #### [place] [address] LABORATORYOrdered By: SYSTEM SYSTEM on 06-25-2025 Basophils [...] above: Interpretive Data: T esting performed on [employer] analyzer using enzymatic creatinine methodology. Electrolyte Balance [...] 06-25-2025 Magnesium [Mass/Vol] 2.0 mg/dL Normal 1.6-2.4 [facility] Comment on above: Performed By: #### C BC, ADIFF, ANEU, APTT, CMP, HFP, GFR #### [address] [address] .Auto Diffon 06-24-2025 Basophil, Absolute 0.0 10 3/mcL Normal 0.0-0.3 [facility] Comment on above: Performed By: #### L AC #### [address] [address] Basophils/100 WBC (Bld) 0.2 % Normal 0.0-2.5 [facility] Comment on above: Performed By: #### L AC #### [address] [address] Eosinophil, Absolute 0.2 10 3/mcL Normal 0.0-0.7 [facility] Comment on above: Performed By: #### L AC #### [address] [address] Eosinophils/100 WBC (Bld) 1.8 % Normal 0.0-6.0 [facility] Comment on above: Performed By: #### L AC #### [address] [address] Lymphocyte, Absolute 4.1 10 3/mcL Normal 0.9-4.3 [facility] Comment on above: Performed By: #### L AC #### [address] [address] Lymphocytes/100 WBC (Bld) 31.0 % Normal 20.0-40.0 [facility] Comment on above: Performed By: #### L AC #### [address] [address] Monocyte, Absolute 1.0 10 3/mcL Normal 0.1-1.4 [facility] Comment on above: Performed By: #### L AC #### [address] [address] Monocytes/100 WBC (Bld) 7.6 % Normal 2.0-13.0 [facility] Comment on above: Performed By: #### L AC #### [address] [address] Neutrophils/100 WBC (Bld) 59.4 % Normal 50.0-75.0 [facility] Comment on above: Performed By: #### L AC #### [address] [address] .GFRon 06-24-2025 Estimated Glomerular Filtration Rate 60 ml/min/1.73sqm Normal [facility] Comment on above: Result Comment: Stages [...] results. Performed By: #### L AC #### [address] [address] .NEUABSon 06-24-2025 Neutrophil, Absolute 7.9 10 3/mcL Normal 2.3-8.1 [facility] Comment on above: Performed By: #### L AC #### [place] [id number] APTTon 06-24-2025 aPTT Coag (Bld) [Time] 68.0 s High 25.0-35.0 [facility] Comment on above: Result Comment: For Heparin anticoagulation therapy, the recommended therapeutic range is: 54-77 seconds (APTT Correlation with Anti-Xa therapeutic range of 0.3-0.7 units/ml). PLEASE REFERENCE THE PHARMACY PROTOCOL FOR DOSING. Performed By: #### A PTT ####[address] [address] aPTT Coag (Bld) [Time] 52.5 s High 25.0-35.0 [facility] Comment on above: Result Comment: For Heparin anticoagulation therapy, the recommended therapeutic range is: 54-77 seconds (APTT Correlation with Anti-Xa therapeutic range of 0.3-0.7 units/ml). PLEASE REFERENCE THE PHARMACY PROTOCOL FOR DOSING. Performed By: #### L AC #### [place] [address] aPTT Coag (Bld) [Time] 48.2 s High 25.0-35.0 [facility] Comment on above: Result Comment: For Heparin anticoagulation therapy, the recommended therapeutic range is: 54-77 seconds (APTT Correlation with Anti-Xa therapeutic range of 0.3-0.7 units/ml). PLEASE REFERENCE THE PHARMACY PROTOCOL FOR DOSING. Performed By: #### A PTT #### [place] [address] CBCon 06-24-2025 Erythrocyte distribution width (RBC) [Ratio] 14.3 % Normal 11.5-15.5 [facility] Comment on above: Performed By: #### L AC #### [place] [address] Hematocrit (Bld) [Volume fraction] 36.2 % Normal 34.0-46.0 [facility] Comment on above: Performed By: #### L AC #### [place] [address] Hgb 11.9 G/dL Low 12.0-16.0 [facility] Comment on above: Performed By: #### L AC #### [place] [id number] MCH (RBC) [Entitic mass] 29.1 pg Normal 27.0-33.0 [facility] Comment on above: Performed By: #### L AC #### [place] [address] MCHC 32.9 G/dL Normal 32.0-36.0 [facility] Comment on above: Performed By: #### L AC #### [place] [address] MCV (RBC) [Entitic vol] 88.3 fL Normal 80.0-99.0 [facility] Comment on above: Performed By: #### L AC #### [place] [address] Platelet 371 10 3/mcL Normal 150-450 [facility] Comment on above: Performed By: #### L AC #### [place] [address] Platelet mean volume (Bld) [Entitic vol] 8.1 fL Normal 6.6-10.5 [facility] Comment on above: Performed By: #### L AC #### [place] [address] RBC 4.10 10 6/mcL Normal 4.10-5.30 [facility] Comment on above: Performed By: #### L AC #### [place] [address] WBC 13.3 10 3/mcL High 4.5-10.8 [facility] Comment on above: Performed By: #### L AC #### [place] [address] CMPon 06-24-2025 Albumin Level 3.5 G/dL Normal 3.2-4.8 [facility] Comment on above: Performed By: #### L AC #### [place] [address] Albumin/Globulin [Mass ratio] 1.2 {ratio} Normal 0.9-1.6 [facility] Comment on above: Performed By: #### L AC #### [place] [phone] ALP [Catalytic activity/Vol] 69 U/L Normal 38-126 [facility] Comment on above: Performed By: #### L AC #### [place] [address] ALT [Catalytic activity/Vol] 74 U/L High 10-49 [facility] Comment on above: Performed By: #### L AC #### [place] [address] AST [Catalytic activity/Vol] 44 U/L High 8-34 [facility] Comment on above: Performed By: #### L AC #### [place] [address] Bili Total 0.40 mg/dL Normal 0.20-1.20 [facility] Comment on above: Result Comment: Use of this assay is not recommended for patients undergoing treatment with eltrombopag due to the potential for falsely elevated results. Performed By: #### L AC #### [place] [address] BUN/Creatinine Ratio 19.0 ratio Normal 10.0-22.0 [facility] Comment on above: Performed By: #### L AC #### [place] [address] Calcium [Mass/Vol] 9.2 mg/dL Normal 8.7-10.4 [facility] Comment on above: Performed By: #### L AC #### [place] [address] Chloride [Moles/Vol] 102 mmol/L Normal 98-110 [facility] Comment on above: Performed By: #### L AC #### [place] [address] CO2 [Moles/Vol] 30 mmol/L Normal 22-32 [facility] Comment on above: Performed By: #### L AC #### [place] [address] Creatinine [Mass/Vol] 1.00 mg/dL Normal 0.50-1.20 [facility] Comment on above: Result Comment: Test ing performed on [employer] analyzer using enzymatic creatinine methodology. Performed By: #### L AC #### [place] [address] Electrolyte Balance 7.0 mEq/L Normal 4.0-15.0 [facility] Comment on above: Performed By: #### L AC #### [place] [address] Globulin 3.0 G/dL Normal 2.5-4.2 [facility] Comment on above: Performed By: #### L AC #### [place] [id number] Glucose [Mass/Vol] 91 mg/dL Normal 82-115 [facility] Comment on above: Performed By: #### L AC #### [address] [address] Potassium [Moles/Vol] 3.8 mmol/L Normal 3.5-5.0 [facility] Comment on above: Performed By: #### L AC #### [facility] [address] [place] [id number] Sodium [Moles/Vol] 139 mmol/L Normal 136-145 [facility] Comment on above: Performed By: #### L AC #### [address] [address] Total Protein 6.5 G/dL Normal 5.7-8.2 [facility] Comment on above: Performed By: #### L AC #### [address] [address] Urea nitrogen [Mass/Vol] 19.0 mg/dL Normal 8.0-22.0 [facility] Comment on above: Performed By: #### L AC #### [address] [address] LABORATORYOrdered By: SYSTEM SYSTEM on 06-24-2025 aPTT [...] above: Interpretive Data: T esting performed on EcoDomus analyzer using enzymatic creatinine methodology. Electrolyte Balance [...] 06-24-2025 Magnesium [Mass/Vol] 2.2 mg/dL Normal 1.6-2.4 [facility] Comment on above: Performed By: #### L AC #### [address] [address] .Auto Diffon 06-23-2025 Basophil, Absolute 0.1 10 3/mcL Normal 0.0-0.3 [facility] Comment on above: Performed By: #### A PTT #### [address] [address] Basophils/100 WBC (Bld) 0.5 % Normal 0.0-2.5 [facility] Comment on above: Performed By: #### A PTT #### [address] [address] Eosinophil, Absolute 0.2 10 3/mcL Normal 0.0-0.7 [facility] Comment on above: Performed By: #### A PTT #### [address] [address] Eosinophils/100 WBC (Bld) 2.0 % Normal 0.0-6.0 [facility] Comment on above: Performed By: #### A PTT #### [place] [id number] [place] [address] Lymphocyte, Absolute 3.7 10 3/mcL Normal 0.9-4.3 [facility] Comment on above: Performed By: #### A PTT #### [address] [address] Lymphocytes/100 WBC (Bld) 31.3 % Normal 20.0-40.0 [facility] Comment on above: Performed By: #### A PTT #### [address] [address] Monocyte, Absolute 1.0 10 3/mcL Normal 0.1-1.4 [facility] Comment on above: Performed By: #### A PTT #### [address] [address] Monocytes/100 WBC (Bld) 8.2 % Normal 2.0-13.0 [facility] Comment on above: Performed By: #### A PTT #### [address] [address] Neutrophils/100 WBC (Bld) 58.0 % Normal 50.0-75.0 [facility] Comment on above: Performed By: #### A PTT #### [address] [address] .GFRon 06-23-2025 Estimated Glomerular Filtration Rate 59 ml/min/1.73sqm Normal [facility] Comment on above: Result Comment: Stages [...] results. Performed By: #### A PTT #### [place] [address] .NEUABSon 06-23-2025 Neutrophil, Absolute 6.9 10 3/mcL Normal 2.3-8.1 [facility] Comment on above: Performed By: #### A PTT #### [place] [address] APTTon 06-23-2025 aPTT Coag (Bld) [Time] 52.7 s High 25.0-35.0 [facility] Comment on above: Result Comment: For Heparin anticoagulation therapy, the recommended therapeutic range is: 54-77 seconds (APTT Correlation with Anti-Xa therapeutic range of 0.3-0.7 units/ml). PLEASE REFERENCE THE PHARMACY PROTOCOL FOR DOSING. Performed By: #### L AC #### [place] [address] aPTT Coag (Bld) [Time] 67.1 s High 25.0-35.0 [facility] Comment on above: Result Comment: For Heparin anticoagulation therapy, the recommended therapeutic range is: 54-77 seconds (APTT Correlation with Anti-Xa therapeutic range of 0.3-0.7 units/ml). PLEASE REFERENCE THE PHARMACY PROTOCOL FOR DOSING. Performed By: #### A PTT ####[place] [address] aPTT Coag (Bld) [Time] 50.7 s High 25.0-35.0 [facility] Comment on above: Result Comment: For Heparin anticoagulation therapy, the recommended therapeutic range is: 54-77 seconds (APTT Correlation with Anti-Xa therapeutic range of 0.3-0.7 units/ml). PLEASE REFERENCE THE PHARMACY PROTOCOL FOR DOSING. Performed By: #### C BC, ADIFF, ANEU, APTT, CMP, HFP, GFR #### [place] [address] BMPon 06-23-2025 BUN/Creatinine Ratio 24.5 ratio High 10.0-22.0 [facility] Comment on above: Performed By: #### A PTT #### [address] [address] Calcium [Mass/Vol] 9.0 mg/dL Normal 8.7-10.4 [facility] Comment on above: Performed By: #### A PTT #### [address] [address] Chloride [Moles/Vol] 104 mmol/L Normal 98-110 [facility] Comment on above: Performed By: #### A PTT #### [address] [address] CO2 [Moles/Vol] 29 mmol/L Normal 22-32 [facility] Comment on above: Performed By: #### A PTT #### [address] [address] Creatinine [Mass/Vol] 1.02 mg/dL Normal 0.50-1.20 [facility] Comment on above: Result Comment: Test ing performed on EcoDom[employer] analyzer using enzymatic creatinine methodology. Performed By: #### A PTT #### [address] [address] Electrolyte Balance 5.0 mEq/L Normal 4.0-15.0 [facility] Comment on above: Performed By: #### A PTT #### [address] [address] Glucose [Mass/Vol] 90 mg/dL Normal 82-115 [facility] Comment on above: Performed By: #### A PTT #### [address] [address] Potassium [Moles/Vol] 4.5 mmol/L Normal 3.5-5.0 [facility] Comment on above: Performed By: #### A PTT #### [address] [address] Sodium [Moles/Vol] 138 mmol/L Normal 136-145 [facility] Comment on above: Performed By: #### A PTT #### [address] [address] Urea nitrogen [Mass/Vol] 25.0 mg/dL High 8.0-22.0 [facility] Comment on above: Performed By: #### A PTT #### [place] [address] CBCon 06-23-2025 Erythrocyte distribution width (RBC) [Ratio] 14.1 % Normal 11.5-15.5 [facility] Comment on above: Performed By: #### A PTT #### [place] [address] Hematocrit (Bld) [Volume fraction] 34.8 % Normal 34.0-46.0 [facility] Comment on above: Performed By: #### A PTT #### [place] [address] Hgb 11.4 G/dL Low 12.0-16.0 [facility] Comment on above: Performed By: #### A PTT #### [place] [address] MCH (RBC) [Entitic mass] 28.8 pg Normal 27.0-33.0 [facility] Comment on above: Performed By: #### A PTT #### [place] [address] MCHC 32.7 G/dL Normal 32.0-36.0 [facility] Comment on above: Performed By: #### A PTT #### [place] [address] MCV (RBC) [Entitic vol] 87.9 fL Normal 80.0-99.0 [facility] Comment on above: Performed By: #### A PTT #### [place] [address] Platelet 324 10 3/mcL Normal 150-450 [facility] Comment on above: Performed By: #### A PTT #### [place] [id number] Platelet mean volume (Bld) [Entitic vol] 8.7 fL Normal 6.6-10.5 [facility] Comment on above: Performed By: #### A PTT #### [place] [address] RBC 3.96 10 6/mcL Low 4.10-5.30 [facility] Comment on above: Performed By: #### A PTT #### [facility] [address] [place] [address] WBC 11.8 10 3/mcL High 4.5-10.8 [facility] Comment on above: Performed By: #### A PTT #### [facility] [address] [place] [address] LABORATORYOrdered By: SYSTEM SYSTEM on 06-23-2025 Basophils [...] above: Interpretive Data: T esting performed on [employer] analyzer using enzymatic creatinine methodology. Electrolyte Balance [...] 06-23-2025 Magnesium [Mass/Vol] 2.3 mg/dL Normal 1.6-2.4 [facility] Comment on above: Performed By: #### A PTT #### [address] [address] .Auto Diffon 06-22-2025 Basophil, Absolute 0.0 10 3/mcL Normal 0.0-0.3 [facility] Comment on above: Performed By: #### L AC #### [address] [address] Basophils/100 WBC (Bld) 0.6 % Normal 0.0-2.5 [facility] Comment on above: Performed By: #### L AC #### [address] [address] Eosinophil, Absolute 0.0 10 3/mcL Normal 0.0-0.7 [facility] Comment on above: Performed By: #### L AC #### [address] [address] Eosinophils/100 WBC (Bld) 0.4 % Normal 0.0-6.0 [facility] Comment on above: Performed By: #### L AC #### [address] [address] Lymphocyte, Absolute 1.7 10 3/mcL Normal 0.9-4.3 [facility] Comment on above: Performed By: #### L AC #### [address] [address] Lymphocytes/100 WBC (Bld) 23.0 % Normal 20.0-40.0 [facility] Comment on above: Performed By: #### L AC #### [facility] [address] [place] [address] Monocyte, Absolute 0.7 10 3/mcL Normal 0.1-1.4 [facility] Comment on above: Performed By: #### L AC #### [facility] [address] [place] [address] Monocytes/100 WBC (Bld) 9.6 % Normal 2.0-13.0 [facility] Comment on above: Performed By: #### L AC #### [address] [address] Neutrophils/100 WBC (Bld) 66.4 % Normal 50.0-75.0 [facility] Comment on above: Performed By: #### L AC #### [address] [address] .GFRon 06-22-2025 Estimated Glomerular Filtration Rate 63 ml/min/1.73sqm Normal [facility] Comment on above: Result Comment: Stages [...] results. Performed By: #### L AC #### [facility] [address] [place] [address] .NEUABSon 06-22-2025 Neutrophil, Absolute 5.0 10 3/mcL Normal 2.3-8.1 [facility] Comment on above: Performed By: #### L AC #### [address] [address] APTTon 06-22-2025 aPTT Coag (Bld) [Time] 47.8 s High 25.0-35.0 [facility] Comment on above: Result Comment: For Heparin anticoagulation therapy, the recommended therapeutic range is: 54-77 seconds (APTT Correlation with Anti-Xa therapeutic range of 0.3-0.7 units/ml). PLEASE REFERENCE THE PHARMACY PROTOCOL FOR DOSING. Performed By: #### L AC #### [place] [address] aPTT Coag (Bld) [Time] 48.7 s High 25.0-35.0 [facility] Comment on above: Result Comment: For Heparin anticoagulation therapy, the recommended therapeutic range is: 54-77 seconds (APTT Correlation with Anti-Xa therapeutic range of 0.3-0.7 units/ml). PLEASE REFERENCE THE PHARMACY PROTOCOL FOR DOSING. Performed By: #### A PTT ####[place] [address] aPTT Coag (Bld) [Time] 52.7 s High 25.0-35.0 [facility] Comment on above: Result Comment: For Heparin anticoagulation therapy, the recommended therapeutic range is: 54-77 seconds (APTT Correlation with Anti-Xa therapeutic range of 0.3-0.7 units/ml). PLEASE REFERENCE THE PHARMACY PROTOCOL FOR DOSING. Performed By: #### A PTT ####[address] [address] aPTT Coag (Bld) [Time] 49.2 s High 25.0-35.0 [facility] Comment on above: Result Comment: For Heparin anticoagulation therapy, the recommended therapeutic range is: 54-77 seconds (APTT Correlation with Anti-Xa therapeutic range of 0.3-0.7 units/ml). PLEASE REFERENCE THE PHARMACY PROTOCOL FOR DOSING. Performed By: #### A PTT ####[address] [address] [facility] 06-22-2025 BUN/Creatinine Ratio 30.2 ratio High 10.0-22.0 [facility] Comment on above: Performed By: #### L AC #### [address] [address] Calcium [Mass/Vol] 8.6 mg/dL Low 8.7-10.4 [facility] Comment on above: Performed By: #### L AC #### [address] [address] Chloride [Moles/Vol] 101 mmol/L Normal 98-110 [facility] Comment on above: Performed By: #### L AC #### [address] [address] CO2 [Moles/Vol] 29 mmol/L Normal 22-32 [facility] Comment on above: Performed By: #### L AC #### [address] [address] Creatinine [Mass/Vol] 0.96 mg/dL Normal 0.50-1.20 [facility] Comment on above: Result Comment: Test ing performed on [employer] analyzer using enzymatic creatinine methodology. Performed By: #### L AC #### [address] [address] Electrolyte Balance 9.0 mEq/L Normal 4.0-15.0 [facility] Comment on above: Performed By: #### L AC #### [address] [address] Glucose [Mass/Vol] 108 mg/dL Normal 82-115 [facility] Comment on above: Performed By: #### L AC #### [address] [address] Potassium [Moles/Vol] 3.6 mmol/L Normal 3.5-5.0 [facility] Comment on above: Performed By: #### L AC #### [address] [address] Sodium [Moles/Vol] 139 mmol/L Normal 136-145 [facility] Comment on above: Performed By: #### L AC #### [address] [address] Urea nitrogen [Mass/Vol] 29.0 mg/dL High 8.0-22.0 [facility] Comment on above: Performed By: #### L AC #### [address] [address] CBCon 06-22-2025 Erythrocyte distribution width (RBC) [Ratio] 13.9 % Normal 11.5-15.5 [facility] Comment on above: Performed By: #### L AC #### [place] [address] Hematocrit (Bld) [Volume fraction] 34.9 % Normal 34.0-46.0 [facility] Comment on above: Performed By: #### L AC #### [place] [address] Hgb 11.5 G/dL Low 12.0-16.0 [facility] Comment on above: Performed By: #### L AC #### [place] [address] MCH (RBC) [Entitic mass] 29.2 pg Normal 27.0-33.0 [facility] Comment on above: Performed By: #### L AC #### [place] [address] MCHC 32.9 G/dL Normal 32.0-36.0 [facility] Comment on above: Performed By: #### L AC #### [place] [address] MCV (RBC) [Entitic vol] 88.6 fL Normal 80.0-99.0 [facility] Comment on above: Performed By: #### L AC #### [place] [address] Platelet 316 10 3/mcL Normal 150-450 [facility] Comment on above: Performed By: #### L AC #### [place] [address] Platelet mean volume (Bld) [Entitic vol] 8.0 fL Normal 6.6-10.5 [facility] Comment on above: Performed By: #### L AC #### [place] [address] RBC 3.94 10 6/mcL Low 4.10-5.30 [facility] Comment on above: Performed By: #### L AC #### [place] [address] WBC 7.5 10 3/mcL Normal 4.5-10.8 [facility] Comment on above: Performed By: #### L AC #### [address] [address] MGon 06-22-2025 Magnesium [Mass/Vol] 2.1 mg/dL Normal 1.6-2.4 [facility] Comment on above: Performed By: #### L AC #### [address] [address] .Auto Diffon 06-21-2025 Basophil, Absolute 0.1 10 3/mcL Normal 0.0-0.3 [facility] Comment on above: Performed By: #### B G #### [address] [address] Basophils/100 WBC (Bld) 0.7 % Normal 0.0-2.5 [facility] Comment on above: Performed By: #### B G #### [address] [address] Eosinophil, Absolute 0.1 10 3/mcL Normal 0.0-0.7 [facility] Comment on above: Performed By: #### B G #### [address] [address] Eosinophils/100 WBC (Bld) 0.8 % Normal 0.0-6.0 [facility] Comment on above: Performed By: #### B G #### [address] [address] Lymphocyte, Absolute 2.8 10 3/mcL Normal 0.9-4.3 [facility] Comment on above: Performed By: #### B G #### [address] [address] Lymphocytes/100 WBC (Bld) 30.7 % Normal 20.0-40.0 [facility] Comment on above: Performed By: #### B G #### [address] [address] Monocyte, Absolute 1.0 10 3/mcL Normal 0.1-1.4 [facility] Comment on above: Performed By: #### B G #### [facility] [address] [place] [address] Monocytes/100 WBC (Bld) 11.1 % Normal 2.0-13.0 [facility] Comment on above: Performed By: #### B G #### [facility] [address] [place] [address] Neutrophils/100 WBC (Bld) 56.7 % Normal 50.0-75.0 [facility] Comment on above: Performed By: #### B G #### [address] [address] .GFRon 06-21-2025 Estimated Glomerular Filtration Rate 72 ml/min/1.73sqm Normal [facility] Comment on above: Result Comment: Stages [...] ADIFF, ANEU, APTT, CMP, HFP, GFR #### [address] [address] .NEUABSon 06-21-2025 Neutrophil, Absolute 5.1 10 3/mcL Normal 2.3-8.1 [facility] Comment on above: Performed By: #### B G #### [address] [address] APTTon 06-21-2025 aPTT Coag (Bld) [Time] 133.5 s Critically abnormal 25.0-35.0 [facility] Comment on above: Order Comment: [place] to nurse and they were not expecting results that were given from specimen.DH. Result Comment: For Heparin anticoagulation therapy, the recommended therapeutic range is: 54-77 seconds (APTT Correlation with Anti-Xa therapeutic range of 0.3-0.7 units/ml). PLEASE REFERENCE THE PHARMACY PROTOCOL FOR DOSING. Performed By: #### D RUGS #### [place] [address] aPTT Coag (Bld) [Time] 35.0 s Normal 25.0-35.0 [facility] Comment on above: Result Comment: For Heparin anticoagulation therapy, the recommended therapeutic range is: 54-77 seconds (APTT Correlation with Anti-Xa therapeutic range of 0.3-0.7 units/ml). PLEASE REFERENCE THE PHARMACY PROTOCOL FOR DOSING. Performed By: #### C BC, ADIFF, ANEU, APTT, CMP, HFP, GFR #### [place] [phone] aPTT Coag (Bld) [Time] 46.2 s High 25.0-35.0 [facility] Comment on above: Result Comment: For Heparin anticoagulation therapy, the recommended therapeutic range is: 54-77 seconds (APTT Correlation with Anti-Xa therapeutic range of 0.3-0.7 units/ml). PLEASE REFERENCE THE PHARMACY PROTOCOL FOR DOSING. Performed By: #### A PTT #### [place] [phone] BMPon 06-21-2025 BUN/Creatinine Ratio 27.9 ratio High 10.0-22.0 [facility] Comment on above: Performed By: #### C BC, ADIFF, ANEU, APTT, CMP, HFP, GFR #### [address] [address] Calcium [Mass/Vol] 9.0 mg/dL Normal 8.7-10.4 [facility] Comment on above: Performed By: #### C BC, ADIFF, ANEU, APTT, CMP, HFP, GFR #### [address] [address] Chloride [Moles/Vol] 100 mmol/L Normal 98-110 [facility] Comment on above: Performed By: #### C BC, ADIFF, ANEU, APTT, CMP, HFP, GFR #### [address] [address] CO2 [Moles/Vol] 30 mmol/L Normal 22-32 [facility] Comment on above: Performed By: #### C BC, ADIFF, ANEU, APTT, CMP, HFP, GFR #### [place] [phone] Creatinine [Mass/Vol] 0.86 mg/dL Normal 0.50-1.20 [facility] Comment on above: Result Comment: Test ing performed on Eco[employer] analyzer using enzymatic creatinine methodology. Performed By: #### C BC, ADIFF, ANEU, APTT, CMP, HFP, GFR #### [place] [phone] Electrolyte Balance 10.0 mEq/L Normal 4.0-15.0 [facility] Comment on above: Performed By: #### C BC, ADIFF, ANEU, APTT, CMP, HFP, GFR #### [place] [phone] Glucose [Mass/Vol] 91 mg/dL Normal 82-115 [facility] Comment on above: Performed By: #### C BC, ADIFF, ANEU, APTT, CMP, HFP, GFR #### [place] [address] Potassium [Moles/Vol] 3.6 mmol/L Normal 3.5-5.0 [facility] Comment on above: Performed By: #### C BC, ADIFF, ANEU, APTT, CMP, HFP, GFR #### [place] [address] Sodium [Moles/Vol] 140 mmol/L Normal 136-145 [facility] Comment on above: Performed By: #### C BC, ADIFF, ANEU, APTT, CMP, HFP, GFR #### [place] [address] Urea nitrogen [Mass/Vol] 24.0 mg/dL High 8.0-22.0 [facility] Comment on above: Performed By: #### C BC, ADIFF, ANEU, APTT, CMP, HFP, GFR #### [address] [address] CBCon 08-30-2025 Erythrocyte distribution width (RBC) [Ratio] 14.2 % Normal 11.5-15.5 [facility] Comment on above: Performed By: #### B G #### [place] [address] Hematocrit (Bld) [Volume fraction] 35.4 % Normal 34.0-46.0 [facility] Comment on above: Performed By: #### B G #### [place] [address] Hgb 11.8 G/dL Low 12.0-16.0 [facility] Comment on above: Performed By: #### B G #### [place] [address] MCH (RBC) [Entitic mass] 29.0 pg Normal 27.0-33.0 [facility] Comment on above: Performed By: #### B G #### [place] [address] MCHC 33.4 G/dL Normal 32.0-36.0 [facility] Comment on above: Performed By: #### B G #### [place] [address] MCV (RBC) [Entitic vol] 87.1 fL Normal 80.0-99.0 [facility] Comment on above: Performed By: #### B G #### [place] [address] Platelet 329 10 3/mcL Normal 150-450 [facility] Comment on above: Performed By: #### B G #### [place] [address] Platelet mean volume (Bld) [Entitic vol] 8.6 fL Normal 6.6-10.5 [facility] Comment on above: Performed By: #### B G #### [place] [address] RBC 4.07 10 6/mcL Low 4.10-5.30 [facility] Comment on above: Performed By: #### B G #### [address] [address] WBC 9.0 10 3/mcL Normal 4.5-10.8 [facility] Comment on above: Performed By: #### B G #### [address] [address] LABORATORYOrdered By: Mirtha Bennett on 06-21-2025 Glucose [Mass/Vol] 94 mg/dL Normal 82 - 115 mg/dL [facility] MGon 06-21-2025 Magnesium [Mass/Vol] 2.4 mg/dL Normal 1.6-2.4 [facility] Comment on above: Performed By: #### C BC, ADIFF, ANEU, APTT, CMP, HFP, GFR #### [address] [address] .Auto Diffon 06-20-2025 Basophil, Absolute 0.0 10 3/mcL Normal 0.0-0.3 [facility] Comment on above: Performed By: #### L AC #### [address] [address] Basophils/100 WBC (Bld) 0.2 % Normal 0.0-2.5 [facility] Comment on above: Performed By: #### L AC #### [address] [address] Eosinophil, Absolute 0.0 10 3/mcL Normal 0.0-0.7 [facility] Comment on above: Performed By: #### L AC #### [address] [address] Eosinophils/100 WBC (Bld) 0.0 % Normal 0.0-6.0 [facility] Comment on above: Performed By: #### L AC #### [address] [address] Lymphocyte, Absolute 0.9 10 3/mcL Normal 0.9-4.3 [facility] Comment on above: Performed By: #### L AC #### [address] [address] Lymphocytes/100 WBC (Bld) 14.5 % Low 20.0-40.0 [facility] Comment on above: Performed By: #### L AC #### [facility] [address] [place] [address] Monocyte, Absolute 0.5 10 3/mcL Normal 0.1-1.4 [facility] Comment on above: Performed By: #### L AC #### [facility] [address] [place] [address] Monocytes/100 WBC (Bld) 7.8 % Normal 2.0-13.0 [facility] Comment on above: Performed By: #### L AC #### [facility] [address] [place] [address] Neutrophils/100 WBC (Bld) 77.5 % High 50.0-75.0 [facility] Comment on above: Performed By: #### L AC #### [address] [address] .GFRon 06-20-2025 Estimated Glomerular Filtration Rate 53 ml/min/1.73sqm Normal [facility] Comment on above: Result Comment: Stages [...] results. Performed By: #### D RUGS #### [facility] [address] [place] [address] .NEUABSon 06-20-2025 Neutrophil, Absolute 5.0 10 3/mcL Normal 2.3-8.1 [facility] Comment on above: Performed By: #### L AC #### [facility] [address] [place] [address] APTTon 06-20-2025 aPTT Coag (Bld) [Time] 49.7 s High 25.0-35.0 [facility] Comment on above: Result Comment: Resu lts verified by repeat analysis. - [id number] - 06/20/25, 6:34 PM For Heparin anticoagulation therapy, the recommended therapeutic range is: 54-77 seconds (APTT Correlation with Anti-Xa therapeutic range of 0.3-0.7 units/ml). PLEASE REFERENCE THE PHARMACY PROTOCOL FOR DOSING. Performed By: #### L AC #### [place] [address] aPTT Coag (Bld) [Time] 73.1 s High 25.0-35.0 [facility] Comment on above: Result Comment: For Heparin anticoagulation therapy, the recommended therapeutic range is: 54-77 seconds (APTT Correlation with Anti-Xa therapeutic range of 0.3-0.7 units/ml). PLEASE REFERENCE THE PHARMACY PROTOCOL FOR DOSING. Performed By: #### A PTT ####[place] [id number] aPTT Coag (Bld) [Time] 67.1 s High 25.0-35.0 [facility] Comment on above: Result Comment: For Heparin anticoagulation therapy, the recommended therapeutic range is: 54-77 seconds (APTT Correlation with Anti-Xa therapeutic range of 0.3-0.7 units/ml). PLEASE REFERENCE THE PHARMACY PROTOCOL FOR DOSING. Performed By: #### A PTT ####[address] [address] [facility] BUN/Creatinine Ratio 37.8 ratio High 10.0-22.0 [facility] Comment on above: Performed By: #### L AC #### [address] [address] Calcium [Mass/Vol] 8.9 mg/dL Normal 8.7-10.4 [facility] Comment on above: Performed By: #### L AC #### [address] [address] Chloride [Moles/Vol] 98 mmol/L Normal 98-110 [facility] Comment on above: Performed By: #### L AC #### [address] [address] CO2 [Moles/Vol] 30 mmol/L Normal 22-32 [facility] Comment on above: Performed By: #### L AC #### [address] [address] Creatinine [Mass/Vol] 1.11 mg/dL Normal 0.50-1.20 [facility] Comment on above: Result Comment: Test ing performed on EcoDomus analyzer using enzymatic creatinine methodology. Performed By: #### L AC #### [address] [address] Electrolyte Balance 11.0 mEq/L Normal 4.0-15.0 [facility] Comment on above: Performed By: #### L AC #### [place] [phone] Glucose [Mass/Vol] 116 mg/dL High 82-115 [facility] Comment on above: Performed By: #### L AC #### [place] [address] Potassium [Moles/Vol] 3.5 mmol/L Normal 3.5-5.0 [facility] Comment on above: Performed By: #### L AC #### [place] [address] Sodium [Moles/Vol] 139 mmol/L Normal 136-145 [facility] Comment on above: Performed By: #### L AC #### [place] [address] Urea nitrogen [Mass/Vol] 42.0 mg/dL High 8.0-22.0 [facility] Comment on above: Performed By: #### L AC #### [address] [address] CBCon 06-20-2025 Erythrocyte distribution width (RBC) [Ratio] 14.1 % Normal 11.5-15.5 [facility] Comment on above: Performed By: #### L AC #### [place] [address] Hematocrit (Bld) [Volume fraction] 33.0 % Low 34.0-46.0 [facility] Comment on above: Performed By: #### L AC #### [place] [address] Hgb 11.1 G/dL Low 12.0-16.0 [facility] Comment on above: Performed By: #### L AC #### [place] [address] MCH (RBC) [Entitic mass] 29.3 pg Normal 27.0-33.0 [facility] Comment on above: Performed By: #### L AC #### [place] [address] MCHC 33.6 G/dL Normal 32.0-36.0 [facility] Comment on above: Performed By: #### L AC #### [place] [address] MCV (RBC) [Entitic vol] 87.2 fL Normal 80.0-99.0 [facility] Comment on above: Performed By: #### L AC #### [place] [address] Platelet 290 10 3/mcL Normal 150-450 [facility] Comment on above: Performed By: #### L AC #### [place] [address] Platelet mean volume (Bld) [Entitic vol] 8.2 fL Normal 6.6-10.5 [facility] Comment on above: Performed By: #### L AC #### [place] [address] RBC 3.78 10 6/mcL Low 4.10-5.30 [facility] Comment on above: Performed By: #### L AC #### [place] [address] WBC 6.4 10 3/mcL Normal 4.5-10.8 [facility] Comment on above: Performed By: #### L AC #### [place] [address] MGon 06-20-2025 Magnesium [Mass/Vol] 2.5 mg/dL High 1.6-2.4 [facility] Comment on above: Performed By: #### L AC #### [address] [address] .Auto Diffon 06-19-2025 Basophil, Absolute 0.0 10 3/mcL Normal 0.0-0.3 [facility] Comment on above: Performed By: #### C BC, ADIFF, ANEU, APTT, CMP, HFP, GFR #### [address] [address] Basophils/100 WBC (Bld) 0.1 % Normal 0.0-2.5 [facility] Comment on above: Performed By: #### C BC, ADIFF, ANEU, APTT, CMP, HFP, GFR #### [place] [address] Eosinophil, Absolute 0.0 10 3/mcL Normal 0.0-0.7 [facility] Comment on above: Performed By: #### C BC, ADIFF, ANEU, APTT, CMP, HFP, GFR #### [address] [address] Eosinophils/100 WBC (Bld) 0.0 % Normal 0.0-6.0 [facility] Comment on above: Performed By: #### C BC, ADIFF, ANEU, APTT, CMP, HFP, GFR #### [address] [address] Lymphocyte, Absolute 0.7 10 3/mcL Low 0.9-4.3 [facility] Comment on above: Performed By: #### C BC, ADIFF, ANEU, APTT, CMP, HFP, GFR #### [address] [address] Lymphocytes/100 WBC (Bld) 12.6 % Low 20.0-40.0 [facility] Comment on above: Performed By: #### C BC, ADIFF, ANEU, APTT, CMP, HFP, GFR #### [address] [address] Monocyte, Absolute 0.3 10 3/mcL Normal 0.1-1.4 [facility] Comment on above: Performed By: #### C BC, ADIFF, ANEU, APTT, CMP, HFP, GFR #### [facility] [address] [place] [address] Monocytes/100 WBC (Bld) 5.8 % Normal 2.0-13.0 [facility] Comment on above: Performed By: #### C BC, ADIFF, ANEU, APTT, CMP, HFP, GFR #### [facility] [address] [place] [address] Neutrophils/100 WBC (Bld) 81.5 % High 50.0-75.0 [facility] Comment on above: Performed By: #### C BC, ADIFF, ANEU, APTT, CMP, HFP, GFR #### [address] [address] .GFRon 06-19-2025 Estimated Glomerular Filtration Rate 52 ml/min/1.73sqm [facility] MAIN Comment on above: Result Comment: [...] ADIFF, ANEU, APTT, CMP, HFP, GFR #### [place] [phone] [address] [place] [address] Estimated Glomerular Filtration Rate 71 ml/min/1.73sqm [facility] MAIN Comment on above: Result Comment: [...] results. Performed By: #### L AC #### [address] [address] .NEUABSon 06-19-2025 Neutrophil, Absolute 4.7 10 3/mcL Normal 2.3-8.1 [facility] Comment on above: Performed By: #### L AC #### [place] [address] APTTon 06-19-2025 aPTT Coag (Bld) [Time] 52.6 s High 25.0-35.0 [facility] Comment on above: Result Comment: For Heparin anticoagulation therapy, the recommended therapeutic range is: 54-77 seconds (APTT Correlation with Anti-Xa therapeutic range of 0.3-0.7 units/ml). PLEASE REFERENCE THE PHARMACY PROTOCOL FOR DOSING. Performed By: #### A PTT #### [place] [address] aPTT Coag (Bld) [Time] 73.6 s High 25.0-35.0 [facility] Comment on above: Result Comment: For Heparin anticoagulation therapy, the recommended therapeutic range is: 54-77 seconds (APTT Correlation with Anti-Xa therapeutic range of 0.3-0.7 units/ml). PLEASE REFERENCE THE PHARMACY PROTOCOL FOR DOSING. Performed By: #### A PTT #### [place] [address] aPTT Coag (Bld) [Time] 65.1 s High 25.0-35.0 [facility] Comment on above: Result Comment: For Heparin anticoagulation therapy, the recommended therapeutic range is: 54-77 seconds (APTT Correlation with Anti-Xa therapeutic range of 0.3-0.7 units/ml). PLEASE REFERENCE THE PHARMACY PROTOCOL FOR DOSING. Performed By: #### L AC #### [address] [address] BMPon 06-19-2025 BUN/Creatinine Ratio 34.5 ratio High 10.0-22.0 [facility] Comment on above: Performed By: #### C BC, ADIFF, ANEU, APTT, CMP, HFP, GFR #### [address] [address] Calcium [Mass/Vol] 8.6 mg/dL Low 8.7-10.4 [facility] Comment on above: Performed By: #### C BC, ADIFF, ANEU, APTT, CMP, HFP, GFR #### [address] [address] Chloride [Moles/Vol] 99 mmol/L Normal 98-110 [facility] Comment on above: Performed By: #### C BC, ADIFF, ANEU, APTT, CMP, HFP, GFR #### [address] [address] CO2 [Moles/Vol] 29 mmol/L Normal 22-32 [facility] Comment on above: Performed By: #### C BC, ADIFF, ANEU, APTT, CMP, HFP, GFR #### [address] [address] Creatinine [Mass/Vol] 1.13 mg/dL Normal 0.50-1.20 [facility] Comment on above: Result Comment: Test ing performed on EcoDom[employer] analyzer using enzymatic creatinine methodology. Performed By: #### C BC, ADIFF, ANEU, APTT, CMP, HFP, GFR #### [address] [address] Electrolyte Balance 12.0 mEq/L Normal 4.0-15.0 [facility] MAIN Comment on above: Performed By: #### C BC, ADIFF, ANEU, APTT, CMP, HFP, GFR #### [address] [address] Glucose [Mass/Vol] 156 mg/dL High 82-115 [facility] Comment on above: Performed By: #### C BC, ADIFF, ANEU, APTT, CMP, HFP, GFR #### [address] [address] Potassium [Moles/Vol] 3.6 mmol/L Normal 3.5-5.0 [facility] Comment on above: Performed By: #### C BC, ADIFF, ANEU, APTT, CMP, HFP, GFR #### [place] [address] Sodium [Moles/Vol] 140 mmol/L Normal 136-145 [facility] Comment on above: Performed By: #### C BC, ADIFF, ANEU, APTT, CMP, HFP, GFR #### [place] [address] Urea nitrogen [Mass/Vol] 39.0 mg/dL High 8.0-22.0 [facility] Comment on above: Performed By: #### C BC, ADIFF, ANEU, APTT, CMP, HFP, GFR #### [place] [address] CBCon 06-19-2025 Erythrocyte distribution width (RBC) [Ratio] 14.3 % Normal 11.5-15.5 [facility] Comment on above: Performed By: #### C BC, ADIFF, ANEU, APTT, CMP, HFP, GFR #### [place] [address] Hematocrit (Bld) [Volume fraction] 33.7 % Low 34.0-46.0 [facility] Comment on above: Performed By: #### C BC, ADIFF, ANEU, APTT, CMP, HFP, GFR #### [place] [address] Hgb 11.3 G/dL Low 12.0-16.0 [facility] Comment on above: Performed By: #### C BC, ADIFF, ANEU, APTT, CMP, HFP, GFR #### [place] [address] MCH (RBC) [Entitic mass] 29.4 pg Normal 27.0-33.0 [facility] Comment on above: Performed By: #### C BC, ADIFF, ANEU, APTT, CMP, HFP, GFR #### [place] [address] MCHC 33.6 G/dL Normal 32.0-36.0 [facility] Comment on above: Performed By: #### C BC, ADIFF, ANEU, APTT, CMP, HFP, GFR #### [place] [address] MCV (RBC) [Entitic vol] 87.4 fL Normal 80.0-99.0 [facility] Comment on above: Performed By: #### C BC, ADIFF, ANEU, APTT, CMP, HFP, GFR #### [place] [address] Platelet 272 10 3/mcL Normal 150-450 [facility] Comment on above: Performed By: #### C BC, ADIFF, ANEU, APTT, CMP, HFP, GFR #### [place] [address] Platelet mean volume (Bld) [Entitic vol] 7.9 fL Normal 6.6-10.5 [facility] Comment on above: Performed By: #### C BC, ADIFF, ANEU, APTT, CMP, HFP, GFR #### [place] [address] RBC 3.86 10 6/mcL Low 4.10-5.30 [facility] Comment on above: Performed By: #### C BC, ADIFF, ANEU, APTT, CMP, HFP, GFR #### [place] [address] WBC 5.8 10 3/mcL Normal 4.5-10.8 [facility] Comment on above: Performed By: #### C BC, ADIFF, ANEU, APTT, CMP, HFP, GFR #### [address] [address] CMPon 06-19-2025 Albumin Level 2.9 G/dL Low 3.2-4.8 [facility] Comment on above: Performed By: #### L AC #### [place] [address] Albumin/Globulin [Mass ratio] 0.9 {ratio} Normal 0.9-1.6 [facility] Comment on above: Performed By: #### L AC #### [address] [address] ALP [Catalytic activity/Vol] 76 U/L Normal 38-126 [facility] Comment on above: Performed By: #### L AC #### [address] [address] ALT [Catalytic activity/Vol] 57 U/L High 10-49 [facility] Comment on above: Performed By: #### L AC #### [address] [address] AST [Catalytic activity/Vol] 36 U/L High 8-34 [facility] Comment on above: Performed By: #### L AC #### [address] [address] Bili Total 0.50 mg/dL Normal 0.20-1.20 [facility] Comment on above: Result Comment: Use of this assay is not recommended for patients undergoing treatment with eltrombopag due to the potential for falsely elevated results. Performed By: #### L AC #### [place] [phone] BUN/Creatinine Ratio 36.8 ratio High 10.0-22.0 [facility] Comment on above: Performed By: #### L AC #### [address] [address] Calcium [Mass/Vol] 8.8 mg/dL Normal 8.7-10.4 [facility] Comment on above: Performed By: #### L AC #### [address] [address] Chloride [Moles/Vol] 105 mmol/L Normal 98-110 [facility] Comment on above: Performed By: #### L AC #### [address] [address] CO2 [Moles/Vol] 32 mmol/L Normal 22-32 [facility] Comment on above: Performed By: #### L AC #### [address] [address] Creatinine [Mass/Vol] 0.87 mg/dL Normal 0.50-1.20 [facility] MA[facility] Comment on above: Result Comment: Test ing performed on EcoDom[employer] analyzer using enzymatic creatinine methodology. Performed By: #### L AC #### [address] [address] Electrolyte Balance 12.0 mEq/L Normal 4.0-15.0 [facility] MAIN Comment on above: Performed By: #### L AC #### [address] [address] Globulin 3.2 G/dL Normal 2.5-4.2 [facility] Comment on above: Performed By: #### L AC #### [address] [address] Glucose [Mass/Vol] 139 mg/dL High 82-115 [facility] Comment on above: Performed By: #### L AC #### [place] [address] Potassium [Moles/Vol] 3.7 mmol/L Normal 3.5-5.0 [facility] Comment on above: Performed By: #### L AC #### [place] [address] Sodium [Moles/Vol] 149 mmol/L High 136-145 [facility] Comment on above: Performed By: #### L AC #### [place] [address] Total Protein 6.1 G/dL Normal 5.7-8.2 [facility] Comment on above: Performed By: #### L AC #### [place] [address] Urea nitrogen [Mass/Vol] 32.0 mg/dL High 8.0-22.0 [facility] Comment on above: Performed By: #### L AC #### [address] [address] HFPon 06-19-2025 Bili Indirect 0.4 mg/dL Normal 0.1-10.0 [facility] Comment on above: Performed By: #### L AC #### [place] [address] Bili Direct 0.1 mg/dL Normal 0.0-0.4 [facility] Comment on above: Result Comment: Use of this assay is not recommended for patients undergoing treatment with eltrombopag due to the potential for falsely elevated results. Performed By: #### L #### [place] [address] LABORATORYOrdered By: SYSTEM SYSTEM on 06-19-2025 Bili [...] 06/19/2025 8:06:42 AM Ordering Provider: ADRIANA Soto [facility] .Auto Diffon 06-18-2025 Basophil, Absolute 0.0 10 3/mcL Normal 0.0-0.3 [facility] Comment on above: Performed By: #### B G #### [address] [address] Basophils/100 WBC (Bld) 0.1 % Normal 0.0-2.5 [facility] Comment on above: Performed By: #### B G #### [address] [address] Eosinophil, Absolute 0.0 10 3/mcL Normal 0.0-0.7 [facility] Comment on above: Performed By: #### B G #### [address] [address] Eosinophils/100 WBC (Bld) 0.0 % Normal 0.0-6.0 [facility] Comment on above: Performed By: #### B G #### [address] [address] Lymphocyte, Absolute 0.6 10 3/mcL Low 0.9-4.3 [facility] Comment on above: Performed By: #### B G #### [address] [address] Lymphocytes/100 WBC (Bld) 8.9 % Low 20.0-40.0 [facility] Comment on above: Performed By: #### B G #### [place] [address] Monocyte, Absolute 0.3 10 3/mcL Normal 0.1-1.4 [facility] MA[facility] Comment on above: Performed By: #### B G #### [address] [address] Monocytes/100 WBC (Bld) 4.4 % Normal 2.0-13.0 [facility] Comment on above: Performed By: #### B G #### [place] [address] Neutrophils/100 WBC (Bld) 86.6 % High 50.0-75.0 [facility] Comment on above: Performed By: #### B G #### [place] [address] .GFRon 06-18-2025 Estimated Glomerular Filtration Rate 59 ml/min/1.73sqm Normal [facility] MA[facility] Comment on above: Result Comment: Stages [...] results. Performed By: #### B G #### [address] [address] .NEUABSon 06-18-2025 Neutrophil, Absolute 6.0 10 3/mcL Normal 2.3-8.1 [facility] MAIN Comment on above: Performed By: #### B G #### [place] [phone] APTTon 06-18-2025 aPTT Coag (Bld) [Time] 68.1 s High 25.0-35.0 [facility] Comment on above: Result Comment: For Heparin anticoagulation therapy, the recommended therapeutic range is: 54-77 seconds (APTT Correlation with Anti-Xa therapeutic range of 0.3-0.7 units/ml). PLEASE REFERENCE THE PHARMACY PROTOCOL FOR DOSING. Performed By: #### A PTT ####[place] [address] aPTT Coag (Bld) [Time] 40.6 s High 25.0-35.0 [facility] Comment on above: Result Comment: For Heparin anticoagulation therapy, the recommended therapeutic range is: 54-77 seconds (APTT Correlation with Anti-Xa therapeutic range of 0.3-0.7 units/ml). PLEASE REFERENCE THE PHARMACY PROTOCOL FOR DOSING. Performed By: #### D RUGS #### [place] [phone] aPTT Coag (Bld) [Time] 51.7 s High 25.0-35.0 [facility] Comment on above: Result Comment: For Heparin anticoagulation therapy, the recommended therapeutic range is: 54-77 seconds (APTT Correlation with Anti-Xa therapeutic range of 0.3-0.7 units/ml). PLEASE REFERENCE THE PHARMACY PROTOCOL FOR DOSING. Performed By: #### L AC #### [place] [address] BGon 06-18-2025 Base excess Calc (Bld) [Moles/Vol] 2.9 mmol/L Normal [facility] Comment on above: Performed By: #### B G #### [address] [address] CO2 [Moles/Vol] 27.8 mmol/L Normal 22.0-30.0 [facility] Comment on above: Performed By: #### B G #### [address] [address] HCO3 (Bld) [Moles/Vol] 26.6 mmol/L Normal 21.0-29.0 [facility] Comment on above: Performed By: #### B G #### [place] [address] Oxygen (Bld) [Partial pressure] 98.2 mm[Hg] Normal 74.0-108.0 [facility] Comment on above: Performed By: #### B G #### [place] [address] Oxygen saturation in Blood 97.1 % High 92.0-96.0 [facility] Comment on above: Performed By: #### B G #### [address] [address] pCO2 37.4 mmHg Normal 32.0-46.0 [facility] Comment on above: Performed By: #### B G #### [place] [address] pH (Bld) 7.470 [pH] High 7.380-7.460 [facility] Comment on above: Performed By: #### B G #### [address] [address] BMPon 06-18-2025 BUN/Creatinine Ratio 31.4 ratio High 10.0-22.0 [facility] Comment on above: Performed By: #### B G #### [place] [address] Calcium [Mass/Vol] 8.8 mg/dL Normal 8.7-10.4 [facility] Comment on above: Performed By: #### B G #### [place] [address] Chloride [Moles/Vol] 105 mmol/L Normal 98-110 [facility] Comment on above: Performed By: #### B G #### [place] [address] CO2 [Moles/Vol] 31 mmol/L Normal 22-32 [facility] Comment on above: Performed By: #### B G #### [place] [address] Creatinine [Mass/Vol] 1.02 mg/dL Normal 0.50-1.20 [facility] Comment on above: Result Comment: Test ing performed on EcoDom[employer] analyzer using enzymatic creatinine methodology. Performed By: #### B G #### [place] [address] Electrolyte Balance 7.0 mEq/L Normal 4.0-15.0 [facility] Comment on above: Performed By: #### B G #### [address] [address] Glucose [Mass/Vol] 145 mg/dL High 82-115 [facility] Comment on above: Performed By: #### B G #### [address] [address] Potassium [Moles/Vol] 3.6 mmol/L Normal 3.5-5.0 [facility] Comment on above: Performed By: #### B G #### [address] [address] Sodium [Moles/Vol] 143 mmol/L Normal 136-145 [facility] Comment on above: Performed By: #### B G #### [address] [address] Urea nitrogen [Mass/Vol] 32.0 mg/dL High 8.0-22.0 [facility] Comment on above: Performed By: #### B G #### [address] [address] CAIONon 06-18-2025 Calcium Ionized 1.09 mmol/L Low 1.12-1.32 [facility] Comment on above: Performed By: #### B G #### [address] [address] CBCon 06-18-2025 Erythrocyte distribution width (RBC) [Ratio] 14.4 % Normal 11.5-15.5 [facility] Comment on above: Performed By: #### B G #### [place] [address] Hematocrit (Bld) [Volume fraction] 33.0 % Low 34.0-46.0 [facility] Comment on above: Performed By: #### B G #### [place] [address] Hgb 11.0 G/dL Low 12.0-16.0 [facility] Comment on above: Performed By: #### B G #### [place] [address] MCH (RBC) [Entitic mass] 29.4 pg Normal 27.0-33.0 [facility] Comment on above: Performed By: #### B G #### [place] [address] MCHC 33.4 G/dL Normal 32.0-36.0 [facility] Comment on above: Performed By: #### B G #### [place] [address] MCV (RBC) [Entitic vol] 88.0 fL Normal 80.0-99.0 [facility] Comment on above: Performed By: #### B G #### [place] [address] Platelet 268 10 3/mcL Normal 150-450 [facility] Comment on above: Performed By: #### B G #### [place] [address] Platelet mean volume (Bld) [Entitic vol] 7.7 fL Normal 6.6-10.5 [facility] Comment on above: Performed By: #### B G #### [place] [address] RBC 3.75 10 6/mcL Low 4.10-5.30 [facility] Comment on above: Performed By: #### B G #### [place] [address] WBC 6.9 10 3/mcL Normal 4.5-10.8 [facility] Comment on above: Performed By: #### B G #### [place] [address] LABORATORYOrdered By: Shelbie freitas on 06-18-2025 Blood Glucose Testing Reason Routine (06/18/25 11:16 PM) [facility] Glucose [Mass/Vol] 137 mg/dL High 82 - 115 mg/dL [facility] Blood Glucose Testing Reason Routine (06/18/25 7:15 PM) [facility] Glucose [Mass/Vol] 151 mg/dL High 82 - 115 mg/dL [facility] Blood Glucose Testing Reason Routine (06/18/25 4:00 PM) [facility] LABORATORYOrdered By: Rohit sarabia on 06-18-2025 CO2 [...] 06-18-2025 Magnesium [Mass/Vol] 2.5 mg/dL High 1.6-2.4 [facility] Comment on above: Performed By: #### B G #### [place] [address] XR CHEST 1 VIEWon 06-18-2025 XR CHEST [...] 06/18/2025 7:12:41 AM Ordering Provider: ARIAS Soto [facility] .Auto Diffon 06-17-2025 Basophil, Absolute 0.1 10 3/mcL Normal 0.0-0.3 [facility] Comment on above: Performed By: #### L AC #### [address] [address] Basophils/100 WBC (Bld) 0.9 % Normal 0.0-2.5 [facility] Comment on above: Performed By: #### L AC #### [address] [id number] Eosinophil, Absolute 0.1 10 3/mcL Normal 0.0-0.7 [facility] Comment on above: Performed By: #### L AC #### [address] [id number] Eosinophils/100 WBC (Bld) 0.8 % Normal 0.0-6.0 [facility] Comment on above: Performed By: #### L AC #### [address] [address] Lymphocyte, Absolute 1.6 10 3/mcL Normal 0.9-4.3 [facility] Comment on above: Performed By: #### L AC #### [address] [address] Lymphocytes/100 WBC (Bld) 17.8 % Low 20.0-40.0 [facility] Comment on above: Performed By: #### L AC #### [address] [address] Monocyte, Absolute 0.7 10 3/mcL Normal 0.1-1.4 [facility] [facility] Comment on above: Performed By: #### L AC #### [address] [address] Monocytes/100 WBC (Bld) 8.1 % Normal 2.0-13.0 [facility] Comment on above: Performed By: #### L AC #### [place] [address] Neutrophils/100 WBC (Bld) 72.4 % Normal 50.0-75.0 [facility] Comment on above: Performed By: #### L AC #### [place] [id number] .GFRon 06-17-2025 Estimated Glomerular Filtration Rate 57 ml/min/1.73sqm Normal [facility] Comment on above: Result Comment: Stages [...] results. Performed By: #### L AC #### [place] [address] .NEUABSon 06-17-2025 Neutrophil, Absolute 6.5 10 3/mcL Normal 2.3-8.1 [facility] Comment on above: Performed By: #### L AC #### [place] [address] APTTon 06-17-2025 aPTT Coag (Bld) [Time] 46.8 s High 25.0-35.0 [facility] Comment on above: Result Comment: For Heparin anticoagulation therapy, the recommended therapeutic range is: 54-77 seconds (APTT Correlation with Anti-Xa therapeutic range of 0.3-0.7 units/ml). PLEASE REFERENCE THE PHARMACY PROTOCOL FOR DOSING. Performed By: #### A PTT #### [place] [address] aPTT Coag (Bld) [Time] 40.2 s High 25.0-35.0 [facility] Comment on above: Result Comment: For Heparin anticoagulation therapy, the recommended therapeutic range is: 54-77 seconds (APTT Correlation with Anti-Xa therapeutic range of 0.3-0.7 units/ml). PLEASE REFERENCE THE PHARMACY PROTOCOL FOR DOSING. Performed By: #### A PTT #### [place] [address] aPTT Coag (Bld) [Time] 54.3 s High 25.0-35.0 [facility] Comment on above: Result Comment: For Heparin anticoagulation therapy, the recommended therapeutic range is: 54-77 seconds (APTT Correlation with Anti-Xa therapeutic range of 0.3-0.7 units/ml). PLEASE REFERENCE THE PHARMACY PROTOCOL FOR DOSING. Performed By: #### A PTT ####[place] [id number] aPTT Coag (Bld) [Time] 71.7 s High 25.0-35.0 [facility] Comment on above: Result Comment: For Heparin anticoagulation therapy, the recommended therapeutic range is: 54-77 seconds (APTT Correlation with Anti-Xa therapeutic range of 0.3-0.7 units/ml). PLEASE REFERENCE THE PHARMACY PROTOCOL FOR DOSING. Performed By: #### A PTT ####[place] [id number] BGon 06-17-2025 Base excess Calc (Bld) [Moles/Vol] 1.3 mmol/L Normal [facility] Comment on above: Performed By: #### L AC #### [place] [phone] CO2 [Moles/Vol] 26.5 mmol/L Normal 22.0-30.0 [facility] Comment on above: Performed By: #### L AC #### [address] [address] HCO3 (Bld) [Moles/Vol] 25.3 mmol/L Normal 21.0-29.0 [facility] Comment on above: Performed By: #### L AC #### [place] [phone] Oxygen (Bld) [Partial pressure] 104.6 mm[Hg] Normal 74.0-108.0 [facility] Comment on above: Performed By: #### L AC #### [place] [address] Oxygen saturation in Blood 97.7 % High 92.0-96.0 [facility] Comment on above: Performed By: #### L AC #### [place] [address] pCO2 38.0 mmHg Normal 32.0-46.0 [facility] Comment on above: Performed By: #### L AC #### [place] [address] pH (Bld) 7.442 [pH] Normal 7.380-7.460 [facility] Comment on above: Performed By: #### L AC #### [place] [address] CBCon 06-17-2025 Erythrocyte distribution width (RBC) [Ratio] 14.0 % Normal 11.5-15.5 [facility] Comment on above: Performed By: #### L AC #### [place] [address] Hematocrit (Bld) [Volume fraction] 32.8 % Low 34.0-46.0 [facility] Comment on above: Performed By: #### L AC #### [place] [address] Hgb 10.9 G/dL Low 12.0-16.0 [facility] Comment on above: Performed By: #### L AC #### [place] [address] MCH (RBC) [Entitic mass] 29.4 pg Normal 27.0-33.0 [facility] Comment on above: Performed By: #### L AC #### [place] [address] MCHC 33.2 G/dL Normal 32.0-36.0 [facility] Comment on above: Performed By: #### L AC #### [place] [address] MCV (RBC) [Entitic vol] 88.5 fL Normal 80.0-99.0 [facility] Comment on above: Performed By: #### L AC #### [place] [address] Platelet 240 10 3/mcL Normal 150-450 [facility] Comment on above: Performed By: #### L AC #### [place] [address] Platelet mean volume (Bld) [Entitic vol] 7.5 fL Normal 6.6-10.5 [facility] Comment on above: Performed By: #### L AC #### [place] [address] RBC 3.71 10 6/mcL Low 4.10-5.30 [facility] Comment on above: Performed By: #### L AC #### [place] [address] WBC 9.0 10 3/mcL Normal 4.5-10.8 [facility] Comment on above: Performed By: #### L AC #### [place] [address] CMPon 06-17-2025 Albumin Level 2.8 G/dL Low 3.2-4.8 [facility] Comment on above: Performed By: #### L AC #### [place] [address] Albumin/Globulin [Mass ratio] 1.0 {ratio} Normal 0.9-1.6 [facility] Comment on above: Performed By: #### L AC #### [place] [address] ALP [Catalytic activity/Vol] 90 U/L Normal 38-126 [facility] Comment on above: Performed By: #### L AC #### [place] [phone] ALT [Catalytic activity/Vol] 85 U/L High 10-49 [facility] Comment on above: Performed By: #### L AC #### [place] [address] AST [Catalytic activity/Vol] 97 U/L High 8-34 [facility] Comment on above: Performed By: #### L AC #### [address] [address] Bili Total 0.40 mg/dL Normal 0.20-1.20 [facility] Comment on above: Result Comment: Use of this assay is not recommended for patients undergoing treatment with eltrombopag due to the potential for falsely elevated results. Performed By: #### L AC #### [place] [address] BUN/Creatinine Ratio 28.6 ratio High 10.0-22.0 [facility] Comment on above: Performed By: #### L AC #### [place] [address] Calcium [Mass/Vol] 8.5 mg/dL Low 8.7-10.4 [facility] Comment on above: Performed By: #### L AC #### [place] [address] Chloride [Moles/Vol] 103 mmol/L Normal 98-110 [facility] Comment on above: Performed By: #### L AC #### [place] [address] CO2 [Moles/Vol] 28 mmol/L Normal 22-32 [facility] Comment on above: Performed By: #### L AC #### [place] [address] Creatinine [Mass/Vol] 1.05 mg/dL Normal 0.50-1.20 [facility] Comment on above: Result Comment: Test ing performed on [employer] analyzer using enzymatic creatinine methodology. Performed By: #### L AC #### [place] [address] Electrolyte Balance 8.0 mEq/L Normal 4.0-15.0 [facility] Comment on above: Performed By: #### L AC #### [place] [address] Globulin 2.8 G/dL Normal 2.5-4.2 [facility] Comment on above: Performed By: #### L AC #### [place] [address] Glucose [Mass/Vol] 106 mg/dL Normal 82-115 [facility] Comment on above: Performed By: #### L AC #### [address] [address] Potassium [Moles/Vol] 4.0 mmol/L Normal 3.5-5.0 [facility] Comment on above: Performed By: #### L AC #### [address] [address] Sodium [Moles/Vol] 139 mmol/L Normal 136-145 [facility] Comment on above: Performed By: #### L AC #### [address] [address] Total Protein 5.6 G/dL Low 5.7-8.2 [facility] Comment on above: Performed By: #### L AC #### [address] [address] Urea nitrogen [Mass/Vol] 30.0 mg/dL High 8.0-22.0 [facility] Comment on above: Performed By: #### L AC #### [address] [address] LABORATORYOrdered By: SYSTEM SYSTEM on 06-17-2025 Troponin I.cardiac DL <= 0.01 ng/mL [Mass/Vol] 713 ng/L High 0 - 34 ng/L [facility] SS Comment on above: Interpretive Data: High Sensitive Troponin I Reference Ranges: Female: 0-34 ng/L Male: 0-54 ng/L Testing performed on [employer] analyzer using direct chemiluminescent technology. LABORATORYOrdered By: [...] 06-17-2025 Magnesium [Mass/Vol] 2.1 mg/dL Normal 1.6-2.4 [facility] Comment on above: Performed By: #### L AC #### [address] [address] TROPHSon 06-17-2025 High Sensitivity Troponin I 713 ng/L High 0-34 [facility] Comment on above: Result Comment: High Sensitive Troponin I Reference Ranges: Female: 0-34 ng/L Male: 0-54 ng/L Testing performed on [employer] analyzer using direct chemiluminescent technology. Performed By: #### C BC, ADIFF, ANEU, APTT, CMP, HFP, GFR #### [address] [address] XR CHEST 1 VIEWon 06-17-2025 XR CHEST [...] 06/17/2025 6:58:17 AM Ordering Provider: DEVIN Soto [facility] .Auto Diffon 06-16-2025 Basophil, Absolute 0.0 10 3/mcL Normal 0.0-0.3 [facility] Comment on above: Performed By: #### L AC #### [address] [address] Basophils/100 WBC (Bld) 0.2 % Normal 0.0-2.5 [facility] Comment on above: Performed By: #### L AC #### [address] [address] Eosinophil, Absolute 0.0 10 3/mcL Normal 0.0-0.7 [facility] Comment on above: Performed By: #### L AC #### [address] [address] Eosinophils/100 WBC (Bld) 0.0 % Normal 0.0-6.0 [facility] Comment on above: Performed By: #### L AC #### [address] [address] Lymphocyte, Absolute 0.8 10 3/mcL Low 0.9-4.3 [facility] Comment on above: Performed By: #### L AC #### [address] [address] Lymphocytes/100 WBC (Bld) 6.4 % Low 20.0-40.0 [facility] Comment on above: Performed By: #### L AC #### [address] [address] Monocyte, Absolute 0.5 10 3/mcL Normal 0.1-1.4 [facility] Comment on above: Performed By: #### L AC #### [address] [address] Monocytes/100 WBC (Bld) 4.3 % Normal 2.0-13.0 [facility] Comment on above: Performed By: #### L AC #### [address] [address] Neutrophils/100 WBC (Bld) 89.1 % High 50.0-75.0 [facility] Comment on above: Performed By: #### L AC #### [address] [address] Basophil, Absolute 0.0 10 3/mcL Normal 0.0-0.3 [facility] Comment on above: Performed By: #### L AC #### [address] [address] Basophils/100 WBC (Bld) 0.1 % Normal 0.0-2.5 [facility] Comment on above: Performed By: #### L AC #### [facility] [address] [place] [address] Eosinophil, Absolute 0.0 10 3/mcL Normal 0.0-0.7 [facility] Comment on above: Performed By: #### L AC #### [address] [address] Eosinophils/100 WBC (Bld) 0.0 % Normal 0.0-6.0 [facility] Comment on above: Performed By: #### L AC #### [address] [address] Lymphocyte, Absolute 0.4 10 3/mcL Low 0.9-4.3 [facility] Comment on above: Performed By: #### L AC #### [address] [address] Lymphocytes/100 WBC (Bld) 1.9 % Low 20.0-40.0 [facility] Comment on above: Performed By: #### L AC #### [address] [address] Monocyte, Absolute 0.5 10 3/mcL Normal 0.1-1.4 [facility] Comment on above: Performed By: #### L AC #### [address] [address] Monocytes/100 WBC (Bld) 2.4 % Normal 2.0-13.0 [facility] Comment on above: Performed By: #### L AC #### [address] [address] Neutrophils/100 WBC (Bld) 95.6 % High 50.0-75.0 [facility] Comment on above: Performed By: #### L AC #### [address] [address] .GFRon 06-16-2025 Estimated Glomerular Filtration Rate 59 ml/min/1.73sqm Normal [facility] Comment on above: Result Comment: Stages [...] results. Performed By: #### L AC #### [place] [address] .NEUABSon 06-16-2025 Neutrophil, Absolute 10.8 10 3/mcL High 2.3-8.1 [facility] Comment on above: Performed By: #### L AC #### [place] [address] Neutrophil, Absolute 19.3 10 3/mcL High 2.3-8.1 [facility] Comment on above: Performed By: #### L AC #### [place] [address] APTTon 06-16-2025 aPTT Coag (Bld) [Time] 33.8 s Normal 25.0-35.0 [facility] Comment on above: Result Comment: For Heparin anticoagulation therapy, the recommended therapeutic range is: 54-77 seconds (APTT Correlation with Anti-Xa therapeutic range of 0.3-0.7 units/ml). PLEASE REFERENCE THE PHARMACY PROTOCOL FOR DOSING. Performed By: #### C BC, ADIFF, ANEU, APTT, CMP, HFP, GFR #### [place] [address] aPTT Coag (Bld) [Time] 29.1 s Normal 25.4 - 38.4 [facility] Comment on above: Performed By: #### 2 46925 ####[facility],[address] [place] [address] [facility]anner 06-16-2025 Base excess Calc (Bld) [Moles/Vol] -1.1000 mmol/L Normal [facility] Comment on above: Performed By: #### D RUGS #### [address] [address] CO2 [Moles/Vol] 25.6 mmol/L Normal 22.0-30.0 [facility] Comment on above: Performed By: #### D RUGS #### [address] [address] HCO3 (Bld) [Moles/Vol] 24.3 mmol/L Normal 21.0-29.0 [facility] Comment on above: Performed By: #### D RUGS #### [place] [phone] Oxygen (Bld) [Partial pressure] 97.9 mm[Hg] Normal 74.0-108.0 [facility] Comment on above: Performed By: #### D RUGS #### [place] [address] Oxygen saturation in Blood 97.1 % High 92.0-96.0 [facility] Comment on above: Performed By: #### D RUGS #### [place] [address] pCO2 43.4 mmHg Normal 32.0-46.0 [facility] Comment on above: Performed By: #### D RUGS #### [place] [address] pH (Bld) 7.366 [pH] Low 7.380-7.460 [facility] Comment on above: Performed By: #### D RUGS #### [address] [address] CBCon 06-16-2025 Erythrocyte distribution width (RBC) [Ratio] 13.9 % Normal 11.5-15.5 [facility] Comment on above: Performed By: #### L AC #### [place] [address] Hematocrit (Bld) [Volume fraction] 34.3 % Normal 34.0-46.0 [facility] Comment on above: Performed By: #### L AC #### [place] [address] Hgb 11.3 G/dL Low 12.0-16.0 [facility] Comment on above: Performed By: #### L AC #### [place] [address] MCH (RBC) [Entitic mass] 29.1 pg Normal 27.0-33.0 [facility] Comment on above: Performed By: #### L AC #### [place] [address] MCHC 33.0 G/dL Normal 32.0-36.0 [facility] Comment on above: Performed By: #### L AC #### [place] [address] MCV (RBC) [Entitic vol] 88.4 fL Normal 80.0-99.0 [facility] Comment on above: Performed By: #### L AC #### [place] [address] Platelet 263 10 3/mcL Normal 150-450 [facility] Comment on above: Performed By: #### L AC #### [place] [address] Platelet mean volume (Bld) [Entitic vol] 7.4 fL Normal 6.6-10.5 [facility] Comment on above: Performed By: #### L AC #### [place] [address] RBC 3.88 10 6/mcL Low 4.10-5.30 [facility] Comment on above: Performed By: #### L AC #### [place] [address] WBC 12.1 10 3/mcL High 4.5-10.8 [facility] Comment on above: Performed By: #### L AC #### [place] [address] Erythrocyte distribution width (RBC) [Ratio] 14.4 % Normal 11.5-15.5 [facility] Comment on above: Performed By: #### L AC #### [place] [address] Hematocrit (Bld) [Volume fraction] 38.4 % Normal 34.0-46.0 [facility] Comment on above: Performed By: #### L AC #### [place] [address] Hgb 12.4 G/dL Normal 12.0-16.0 [facility] Comment on above: Performed By: #### L AC #### [place] [address] MCH (RBC) [Entitic mass] 28.7 pg Normal 27.0-33.0 [facility] Comment on above: Performed By: #### L AC #### [place] [address] MCHC 32.3 G/dL Normal 32.0-36.0 [facility] Comment on above: Performed By: #### L AC #### [place] [address] MCV (RBC) [Entitic vol] 88.8 fL Normal 80.0-99.0 [facility] Comment on above: Performed By: #### L AC #### [place] [address] Platelet 297 10 3/mcL Normal 150-450 [facility] Comment on above: Performed By: #### L AC #### [place] [address] Platelet mean volume (Bld) [Entitic vol] 7.5 fL Normal 6.6-10.5 [facility] Comment on above: Performed By: #### L AC #### [place] [address] RBC 4.32 10 6/mcL Normal 4.10-5.30 [facility] Comment on above: Performed By: #### L AC #### [place] [address] WBC 20.2 10 3/mcL High 4.5-10.8 [facility] Comment on above: Performed By: #### L AC #### [facility] [address] [place] [address] CBC + DIFFon 06-16-2025 Baso # 0.04 x10EE3/UL Normal 0.00 - 0.10 [facility] Comment on above: Performed By: #### 2 74737 ####[facility],[address] [place] [address] Basophils/100 WBC (Bld) 0.3 % Normal 0.0 - 2.0 [facility] Comment on above: Performed By: #### 2 35646 ####[facility],[address] [place] [address] CBC + DIFF Normal [facility] Comment on above: Result Comment: CBC- COMPLETE BLOOD COUNT Performed By: #### 2 04805 ####[facility],[address] [place] [address] EO # 0.19 x10EE3/UL Normal 0.00 - 0.50 [facility] Comment on above: Performed By: #### 2 06855 ####[facility],[address] [place] [address] Eosinophils/100 WBC (Bld) 1.6 % Normal 0.0 - 7.0 [facility] Comment on above: Performed By: #### 2 73639 ####[facility],[address] [place], [place] [id number] Erythrocyte distribution width (RBC) [Ratio] 13.9 % Normal 12.0 - 15.6 [facility] Comment on above: Performed By: #### 2 33425 ####[facility],[address] [place] [address] Hematocrit (Bld) [Volume fraction] 39.0 % Normal 34.0 - 46.0 [facility] Comment on above: Performed By: #### 2 60129 ####[facility],[address] [place] [address] Hemoglobin (Bld) [Mass/Vol] 13.5 g/dL Normal 12.0 - 16.0 [facility] Comment on above: Performed By: #### 2 51713 ####[facility],[address] [place] [address] Lymph # 4.60 x10EE3/UL High 0.80 - 2.80 [facility] Comment on above: Performed By: #### 2 20031 ####[facility],[address] [place] [address] Lymphocytes/100 WBC (Bld) 38.1 % Normal 20.0 - 45.0 [facility] Comment on above: Performed By: #### 2 68251 ####[facility],[address] [place] [address] MANUAL DIFF N/A Normal [facility] Comment on above: Performed By: #### 2 72548 ####[facility],[address] [place] [address] MCH (RBC) [Entitic mass] 31 pg Normal 27 - 33 [facility] Comment on above: Performed By: #### 2 11873 ####[facility],[address] [place] [address] MCHC 35 X10 3 Normal 32 - 36 [facility] Comment on above: Performed By: #### 2 28965 ####[facility],[address] [place] [address] MCV (RBC) [Entitic vol] 91 fL Normal 80 - 99 [facility] Comment on above: Performed By: #### 2 62646 ####[facility],[address] [place] [address] Refugio # 0.64 x10EE3/UL Normal 0.20 - 1.00 [facility] Comment on above: Performed By: #### 2 90534 ####[facility],[address] [place] [address] MONOS % 5.3 % Normal 0.0 - 10.0 [facility] Comment on above: Performed By: #### 2 40043 ####[facility],[address] [place] [address] Morphology Dandy (Bld) [Interp] N/A Normal [facility] Comment on above: Performed By: #### 2 24810 ####[facility],[address] [place] [address] Neut # 6.61 x10EE3/UL Normal 1.50 - 7.10 [facility] Comment on above: Performed By: #### 2 77569 ####[place] [id number] Neutrophils/100 WBC (Bld) 54.7 % Normal 46.0 - 76.0 [facility] Comment on above: Performed By: #### 2 23695 ####[place] [address] PLATELET 365 x10EE3/UL Normal 150 - 450 [facility] Comment on above: Performed By: #### 2 08661 ####[place] [address] Platelet mean volume (Bld) [Entitic vol] 7.4 fL Normal 6.6 - 10.5 [facility] Comment on above: Result Comment: AUTO MATED DIFFERENTIAL Performed By: #### 2 83433 ####[facility],[address] [place], [place] [phone] RBC 4.31 x 10EE6/UL Normal 4.10 - 5.30 [facility] Comment on above: Performed By: #### 2 63589 ####[place] [id number] WBC 12.1 x 10EE3/UL High 4.5 - 10.8 [facility] Comment on above: Performed By: #### 2 16594 ####[facility],[address] [place] [address] CHEST 1 VIEWon 06-16-2025 CHEST 1 VIEW Normal [facility] CHEST 1 VIEW (PICC/ET PLACEM ENTon 06-16-2025 CHEST 1 VIEW (PICC/ET PLACEMENT Normal [facility] CMPon 06-16-2025 Albumin Level 3.5 G/dL Normal 3.2-4.8 [facility] Comment on above: Performed By: #### L AC #### [address] [address] Albumin/Globulin [Mass ratio] 1.0 {ratio} Normal 0.9-1.6 [facility] Comment on above: Performed By: #### L AC #### [address] [address] ALP [Catalytic activity/Vol] 135 U/L High 38-126 [facility] Comment on above: Performed By: #### L AC #### [address] [address] ALT [Catalytic activity/Vol] 133 U/L High 10-49 [facility] Comment on above: Performed By: #### L AC #### [address] [address] AST [Catalytic activity/Vol] 203 U/L High 8-34 [facility] Comment on above: Performed By: #### L AC #### [address] [address] Bili Total 0.30 mg/dL Normal 0.20-1.20 [facility] Comment on above: Result Comment: Use of this assay is not recommended for patients undergoing treatment with eltrombopag due to the potential for falsely elevated results. Performed By: #### L AC #### [address] [address] BUN/Creatinine Ratio 24.5 ratio High 10.0-22.0 [facility] Comment on above: Performed By: #### L AC #### [address] [address] Calcium [Mass/Vol] 9.2 mg/dL Normal 8.7-10.4 [facility] Comment on above: Performed By: #### L AC #### [address] [address] Chloride [Moles/Vol] 100 mmol/L Normal 98-110 [facility] Comment on above: Performed By: #### L AC #### [address] [address] CO2 [Moles/Vol] 26 mmol/L Normal 22-32 [facility] Comment on above: Performed By: #### L AC #### [address] [address] Creatinine [Mass/Vol] 1.02 mg/dL Normal 0.50-1.20 [facility] Comment on above: Result Comment: Test ing performed on [employer] analyzer using enzymatic creatinine methodology. Performed By: #### L AC #### [address] [address] Electrolyte Balance 13.0 mEq/L Normal 4.0-15.0 [facility] Comment on above: Performed By: #### L AC #### [address] [address] Globulin 3.6 G/dL Normal 2.5-4.2 [facility] Comment on above: Performed By: #### L AC #### [address] [address] Glucose [Mass/Vol] 135 mg/dL High 82-115 [facility] Comment on above: Performed By: #### L AC #### [address] [address] Potassium [Moles/Vol] 3.2 mmol/L Low 3.5-5.0 [facility] Comment on above: Performed By: #### L AC #### [address] [address] Sodium [Moles/Vol] 139 mmol/L Normal 136-145 [facility] Comment on above: Performed By: #### L AC #### [address] [address] Total Protein 7.1 G/dL Normal 5.7-8.2 [facility] Comment on above: Performed By: #### L AC #### [facility] [address] [place] [address] Urea nitrogen [Mass/Vol] 25.0 mg/dL High 8.0-22.0 [facility] Comment on above: Performed By: #### L AC #### [facility] [address] [place] [address] CMP with eGFRon 06-16-2025 AGE 70 years Normal [facility] Comment on above: Performed By: #### 2 72754 ####[facility],[address] [place] [address]115 Albumin [Mass/Vol] 3.2 g/dL Low 3.4 - 5.0 [facility] Comment on above: Performed By: #### 2 76203 ####[facility],[address] [place] [address]17 Albumin/Globulin [Mass ratio] 0.7 {ratio} Low 0.9 - 1.6 [facility] Comment on above: Performed By: #### 2 44697 ####[facility],[address] [place] [address] ALK PHOS 136 U/L High 46 - 116 [facility] Comment on above: Performed By: #### 2 01051 ####[facility],[address] [place] [address] 13566 ALT [Catalytic activity/Vol] 104 U/L High 16 - 63 [facility] Comment on above: Performed By: #### 2 27068 ####[facility],[address] [place] [address]32 Anion gap [Moles/Vol] 17 mmol/L Normal 10 - 20 [facility] Comment on above: Performed By: #### 2 47329 ####[facility],[address] [place] [address] 40647 AST [Catalytic activity/Vol] 145 U/L High 13 - 39 [facility] Comment on above: Performed By: #### 2 83499 ####[facility],[address] [place] [address] 53726 B/C RATIO 17 ratio Normal 0 - 30 [facility] Comment on above: Performed By: #### 2 74650 ####[facility],[address] [place] [address] 36080 Bilirubin [Mass/Vol] 0.7 mg/dL Normal 0.2 - 1.0 [facility] Comment on above: Performed By: #### 2 06880 ####[facility],[address] [place] [address] 79609 Calcium [Mass/Vol] 9.0 mg/dL Normal 8.5 - 10.1 [facility] Comment on above: Performed By: #### 2 18553 ####[facility],[address] [place] [address]191 Chloride [Moles/Vol] 95 mmol/L Low 98 - 107 [facility] Comment on above: Performed By: #### 2 76761 ####[facility],[address] [place] [address] 39979 CMP with eGFR Normal [facility] Comment on above: Result Comment: COMP REHENSIVE METABOLIC PANEL Performed By: #### 2 74795 ####[facility],[address] [place] [address] 86496 CO2 [Moles/Vol] 28.5 mmol/L Normal 21.0 - 32.0 [facility] Comment on above: Performed By: #### 2 69636 ####[facility],[address] [place] [address]13 Creatinine [Mass/Vol] 1.55 mg/dL High 0.55 - 1.02 [facility] Comment on above: Performed By: #### 2 16157 ####[facility],[address] [place] [address] 49218 eGFR 33 ML/MINUTE Low 60 - 999 [facility] Comment on above: Performed By: #### 2 21276 ####[facility],[address] [place] [address] 22679 eGFR(AA) 40 ML/MINUTE Low 60 - 999 [facility] Comment on above: Result Comment: ACCO RDING TO THE NATIONAL KIDNEY DISEASE EDUCATION PROGRAM(NKDE), A NORMAL eGFRIS A VALUE GREATER THAN OR EQUAL TO 60 ML/MIN/1.73 SQ METERS.CHRONIC KIDNEY DISEASE: <60mL/MIN/1.73 SQ METERSKIDNEY FAILURE: <15mL/MIN/1.73 SQ METERSTHIS TEST SHOULD ONLY BE USED FOR PATIENTS 18 YEARS OF AGE AND OLDER. Performed By: #### 2 48469 ####[facility],[address] [place] [address] Globulin (S) [Mass/Vol] 4.3 g/dL High 1.5 - 3.8 [facility] Comment on above: Performed By: #### 2 47462 ####[facility],[address] [place] [address] 99499 Glucose [Mass/Vol] 266 mg/dL High 74 - 106 [facility] Comment on above: Performed By: #### 2 19184 ####[facility],[address] [place] [address] 97795 Potassium [Moles/Vol] 4.0 mmol/L Normal 3.5 - 5.1 [facility] Comment on above: Performed By: #### 2 01804 ####[facility],[address] [place] [address] 80365 Protein [Mass/Vol] 7.5 g/dL Normal 6.4 - 8.2 [facility] Comment on above: Performed By: #### 2 63517 ####[facility],[address] [place] [address]18 Sodium [Moles/Vol] 136 mmol/L Normal 136 - 145 [facility] Comment on above: Performed By: #### 2 11121 ####[facility],[address] [place] [address] Urea nitrogen [Mass/Vol] 27 mg/dL High 7 - 18 [facility] Comment on above: Performed By: #### 2 43880 ####[facility],[address] [place] [address] CULTURE BLOOD [MARIA TERESA]on Microscopic examination of blood, culture CULTURE BLOOD [MARIA TERESA] _BLOOD CULTURE_ GO TO CPSI REPORTS AND ATTACHMENTS FOR SCANNED REPORT 06/24/25.56.DNP.COMPL ETE Normal [facility] Comment on above: Performed By: #### 2 44708 ####[facility],[address] [place] [address] Microscopic examination of blood, culture CULTURE BLOOD [MARIA TERESA] _BLOOD CULTURE_ GO TO CPSI REPORTS AND ATTACHMENTS FOR SCANNED REPORT 06/24/25.55.DNP.COMPL ETE Normal [facility] Comment on above: Performed By: #### 2 11511 ####[facility],[address] [place] [address] CVFLURVon 06-16-2025 FLU A PCR Negative Normal Negative [facility] Comment on above: Result Comment: Note s 1990 Performed By: #### C VFLURV ####[place] [address] FLU B PCR Negative Normal Negative [facility] Comment on above: Result Comment: Note s 1990 Performed By: #### C VFLURV ####[place] [address] RSV PCR Negative Normal Negative [facility] Comment on above: Result Comment: Note s 1990 Performed By: #### C VFLURV ####[place] [address] SARS-CoV-2 (COVID-19) RNA ALEJANDRO+probe Ql (Unsp spec) Negative Normal Negative [facility] Comment on above: Result Comment: Note [...] FDA Approved. Performed By: #### C VFLURV ####[facility] [place] [address] D-DIMER, QUANTITATIVEon 05-24 D-DIMER QUANT 5358 ng/ml High 0 - 230 [facility] Comment on above: Performed By: #### 2 37667 ####[facility],[address] [place], [place] [id number] D-DIMER, QUANTITATIVE Normal [facility] Comment on above: Result Comment: SILVANO T D-DIMER Performed By: #### 2 11406 ####[facility],[address] [place], [place] [id number] DRUGSon 06-16-2025 Acetaminophen [Mass/Vol] ug/mL Low 10.0-20.0 [facility] Comment on above: Performed By: #### D RUGS #### [facility] [address] [place] [address] Ethanol Level <10.0 [facility] Comment on above: Performed By: #### D RUGS #### [facility] [address] [place] [address] Salicylate Lvl (ds) <3.0 Low 10.0-25.0 [facility] Comment on above: Performed By: #### D RUGS #### [place] [address] Serum Drugs screened: See Below [facility] MAIN Comment on above: Result Comment: This drug screen is a presumptive screening only. No confirmation will be performed unless requested. Drugs included in the serum drug screen are: Threshold Ethanol 10.0 mg/dL Salicylate 2.0 mg/dl Acetaminophen 2.0 mcg/mL Testing has been performed FOR MEDICAL PURPOSES ONLY. Performed By: #### D RUGS #### [place] [address] DRUGUon 06-16-2025 Benzodiazepine (u) Positive Abnormal Negative [facility] Comment on above: Performed By: #### L AC #### [place] [address] Cannabinoid (u) Positive Abnormal Negative [facility] Comment on above: Performed By: #### L AC #### [place] [address] U pH Drug Scrn 6.0 Normal 5.0-8.0 [facility] Comment on above: Performed By: #### L AC #### [place] [address] Amphetamine (u) Negative Normal [facility] MAIN Comment on above: Performed By: #### L AC #### [place] [address] Barbiturate (u) Negative Normal [facility] MAIN Comment on above: Performed By: #### L AC #### [place] [address] Cocaine Ql (U) Negative Normal [facility] MAIN Comment on above: Performed By: #### L AC #### [place] [phone] Fentanyl (u) Negative Normal Negative [facility] Comment on above: Result Comment: Test ing has been performed FOR MEDICAL PURPOSES ONLY. Performed By: #### L AC #### [place] [phone] Methadone Ql (U) Negative Normal Negative [facility] Comment on above: Performed By: #### L AC #### [place] [address] [place] [address] Opiate (u) Negative Normal Negative [facility] Comment on above: Performed By: #### L AC #### [facility] [address] [place] [address] Oxycodone (u) Negative Normal Negative [facility] Comment on above: Result Comment: Test ing has been performed FOR MEDICAL PURPOSES ONLY. Performed By: #### L AC #### [facility] [address] [place] [address] PCP (u) Negative Normal Negative [facility] Comment on above: Performed By: #### L AC #### [facility] [address] [place] [address] Propoxyphene (u) Negative [place] Negative [facility] Comment on above: Performed By: #### L AC #### [facility] [address] [place] [address] 31491 Urine Drugs screened: See Below Normal [facility] MAIN Comment on above: Result Comment: This [...] ONLY. Performed By: #### L AC #### [facility] [address] [place] [address] ED MED ADMINISTRATION DETAIL on 06-16-2025 ED MED ADMINISTRATION DETAIL Normal [facility] ED NURSES CLINICAL NOTEon ED NURSES CLINICAL NOTE Normal [facility] ED ORDER SHEET (CPOE ONLY)on 06-16-2025 ED ORDER SHEET (CPOE ONLY) Normal [facility] ED PHYSICIAN CLINICAL REPORT on 06-16-2025 ED PHYSICIAN CLINICAL REPORT Normal [facility] ED SUPER BILLon 06-16-2025 ED SUPER BILL Normal [facility] ED VISIT SUMMARYon ED VISIT SUMMARY Normal [facility] ED VITALS FLOW SHEETon 06-16 ED VITALS FLOW SHEET Normal [facility] LABORATORYOrdered By: SYSTEM SYSTEM on 06-16-2025 Lactate [Moles/Vol] 2.0 mmol/L Normal 0.5 - 2. 2 mmol/L [facility] PT Coag (PPP) [Time] 14.4 s Normal [...] Comment on above: Interpretive Data: [place] [employer] (CHEST, 1992, 102:312S-25S) recommended therapeutic range for oral anticoagulant therapy is: LOW RISK: Prophylaxis of venous thrombosis INR: 2.0-3.0 Treatment of pulmonary embolism 2.0-3.0 Prevention of systemic embolism 2.0-3.0 HIGH RISK: Mechanical prosthetic valves 2.5-3.5 Lactate [Moles/Vol] 2.1 mmol/L Normal 0.5 - 2. 2 mmol/L [facility] Troponin I.cardiac DL <= 0.01 ng/mL [Mass/Vol] [...] 2.0 Performed By: #### L AC #### [place] [address] Lactic Acid Lvl 2.1 mmol/L Normal 0.5-2.2 [facility] Comment on above: Performed By: #### C BC, ADIFF, ANEU, APTT, CMP, HFP, GFR #### [place] [address] Lactic Acid Lvl 1.5 mmol/L Normal 0.5-2.2 [facility] Comment on above: Performed By: #### L AC #### [place] [address] Lactic Acid Lvl 1.7 mmol/L Normal 0.5-2.2 [facility] Comment on above: Performed By: #### L AC #### [place] [address] LACTATEon 06-16-2025 Lactate [Moles/Vol] 3.9 mmol/L High 0.4 - 2.0 [facility] Comment on above: Result Comment: LACT ATE 3 HR NOTIFIED TO: _DANIELITO_RN 06/16/25.0422.ALA. . . LACTATE 3 HR NOTIFIED BY: _AA 06/16/25.0422.ALA. . . Performed By: #### 2 98981 ####[facility],[address] [place] [address] MGon 06-16-2025 Magnesium [Mass/Vol] 2.0 mg/dL Normal 1.6-2.4 [facility] Comment on above: Performed By: #### L AC #### [place] [address] MYCOon 06-16-2025 Mycoplasma IgG Negative Normal [facility] Comment on above: Result Comment: INTE RPRETATION OF MYCOPLASMA IgG BY EIA: Negative: No detectable M. pneumoniae IgG antibody. Positive: Mycoplasma pneumoniae IgG antibody Detected. Equivocal: Equivocal for IgG antibodies to Mycoplasma pneumoniae. Suggest repeat testing in 10-14 days. Performed By: #### L AC #### [address] [address] Mycoplasma IgM Negative Normal [facility] Comment on above: Result Comment: INTE RPRETATION OF MYCOPLASMA IgM: Negative: IgM to M. pneumoniae Absent, or at levels below the assay limit of detection. Positive: IgM to M. pneumoniae Present. Invalid: Test results are invalid due to invalid internal control. Assay was performed in duplicate. Repeat testing is suggested if clinically indicated. Performed By: #### L AC #### [address] [address] NT-proBNPon 06-16-2025 Natriuretic peptide B (Bld) [Mass/Vol] 4094 pg/mL High 0 - 125 [facility] Comment on above: Performed By: #### 2 99095 ####[facility],[address] [place] [address] No Panel InformationOrdered By: Keith Chang on 06-16-2025 Culture Respiratory with Gram Stain Normal respiratory renu present at 48 hours Sensitivity testing not indicated [facility] Comment on above: Requests for Mycopla sma, Legionella, Fungi, Mycobacteria, Chlamydia, and Viruses require ordering of those individual tests. GS Rare Gram Positive Cocci [facility] Comment on above: Requests for Mycopla sma, Legionella, Fungi, Mycobacteria, Chlamydia, and Viruses require ordering of those individual tests. No Panel Informationon 06-16 Legionella Urine Ag Presumptive negative for L. pneumophila serogroup 1 antigen in urine, suggesting no recent or current infection. Legionnaire's disease cannot be ruled out since other serogroups and species may also cause disease. [facility] Streptococcus Pneumoniae Urine Antig Presumptive negative for pneumococcal pneumonia, suggesting no current or recent pneumococcal infection. Infection due to Strep pneumoniae cannot be ruled out since the antigen present in the sample may be below the detection limit of the test. [facility] Comment on above: This test has not be en evaluated on patients taking antibiotics for greater than 24 hours or on patients who have recently completed an antibiotic regimen. The accuracy of this test has not been proven in young children. Microscopic examination of blood, culture Blood Culture: No Growth at 5 days. [facility] PHOSon 06-16-2025 Phosphate [Mass/Vol] 4.2 mg/dL Normal 2.4-5.1 [facility] Comment on above: Performed By: #### L AC #### [facility] [address] [place] [address] PROon 06-16-2025 INR Coag (PPP) [Relative time] 1.2 {INR} Normal [facility] Comment on above: Result Comment: [employer] (CHEST, 1992, 102:312S-25S) recommended therapeutic range for oral anticoagulant therapy is: LOW RISK: Prophylaxis of venous thrombosis INR: 2.0-3.0 Treatment of pulmonary embolism 2.0-3.0 Prevention of systemic embolism 2.0-3.0 HIGH RISK: Mechanical prosthetic valves 2.5-3.5 Performed By: #### C BC, ADIFF, ANEU, APTT, CMP, HFP, GFR #### [facility] [address] [place] [address] PT Coag (PPP) [Time] 14.4 s Normal 9.0-14.4 [facility] Comment on above: Result Comment: Effe ctive 05/06/08, Protime results may be affected by some antibiotics (i.e. Ciprofloxacin, Azithromycin, Bactrim) which may potentiate the action of oral anticoagulants, with further increases in Protime/INR. Performed By: #### C BC, ADIFF, ANEU, APTT, CMP, HFP, GFR #### [facility] [address] [place] [address] PROTHROMBIN TIME AND INRon 0 06-16-2025 INR Coag (PPP) [Relative time] 1.1 {INR} Normal 0.8 - 1.2 [facility] Comment on above: Result Comment: T HE [...] MECHANICAL HEART VALVES Performed By: #### 2 51132 ####[facility],[address] [place], [place] [phone] PROTHROMBIN TIME AND INR Normal [facility] Comment on above: Result Comment: PROT HROMBIN TIME AND INR Performed By: #### 2 73507 ####[facility],[address] [place], [place] [phone] PT-COUMADIN 11.8 sec Normal 9.3 - 14.1 [facility] Comment on above: Performed By: #### 2 40099 ####[facility],[address] [place], [place] [phone] TROPHSon 06-16-2025 High Sensitivity Troponin I 1085 ng/L High [address] [place] [address] MAIN Comment on above: Result Comment: High Sensitive Troponin I Reference Ranges: Female: 0-34 ng/L Male: 0-54 ng/L Testing performed on [employer] IM analyzer using direct chemiluminescent technology. Performed By: #### L AC #### [place] [address] High Sensitivity Troponin I 951 ng/L [address] MAIN Comment on above: Result Comment: High Sensitive Troponin I Reference Ranges: Female: 0-34 ng/L Male: 0-54 ng/L Testing performed on [employer] IM analyzer using direct chemiluminescent technology. Performed By: #### C BC, ADIFF, ANEU, APTT, CMP, HFP, GFR #### [place] [phone] TROPONINon 06-16-2025 HS TROPONIN 282.4 pg/mL Critically high 0.0 - 51.4 [facility] Comment on above: Result Comment: { CA LLED TO DANIELITO CARRILLO BY AA [id number]{ READ BACK BY DANIELITO CARRILLO RA [id number] Performed By: #### 2 62800 ####[facility],[address] [place] [address] HS TROPONIN 217.4 pg/mL Critically high 0.0 - 51.4 [facility] Comment on above: Result Comment: { CA LLED TO DANIELITO CARRILLO BY AA [id number]{ READ BACK BY DANIELITO CARRILLO RA [id number] Performed By: #### 2 03322 ####[facility],[address] [place], [place] [phone] URINALYSISon 06-16-2025 Amorphous NONE Normal [facility] Comment on above: Performed By: #### 2 19058 ####[facility],[address] [place] [address] 27758 Bacteria NONE Normal [facility] Comment on above: Performed By: #### 2 15741 ####[facility],[address] [place], [place] [phone] Bilirubin Ql (U) Negative Normal NORMAL: NEGATIVE [facility] Comment on above: Performed By: #### 2 77597 ####[facility],[address] [place], [place] [phone] Casts NONE Normal [facility] Comment on above: Performed By: #### 2 92006 ####[facility],[address] [place] [address] Clarity (U) clear Normal NORMAL: CLEAR [facility] Comment on above: Performed By: #### 2 99545 ####[facility],[address] [place] [address] 65189 Color (U) ariane Normal NORMAL: YELLOW [facility] Comment on above: Performed By: #### 2 66665 ####[facility],[address] [place] [address] 56755 Crystals LM Nom (Urine sed) NONE Normal [facility] Comment on above: Performed By: #### 2 89233 ####[facility],[address] [place] [address]17 Epi Cells NONE Normal [facility] Comment on above: Performed By: #### 2 00124 ####[facility],[address] [place] [address] 29630 Glucose Ql (U) 50 Abnormal NORMAL: NORMAL [facility] Comment on above: Performed By: #### 2 52981 ####[facility],[address] [place] [address] 73769 Hemoglobin Ql (U) 150 Abnormal NORMAL: NEGATIVE [facility] Comment on above: Performed By: #### 2 45766 ####[facility],[address] [place] [address] 57307 Ketone Negative Normal NORMAL: NEGATIVE [facility] Comment on above: Performed By: #### 2 54807 ####[facility],[address] [place] [address] 08411 Leukocytes Negative Normal NORMAL: NEGATIVE [facility] Comment on above: Performed By: #### 2 22975 ####[facility],[address] [place] [address] 89990 Mucous NONE Normal [facility] Comment on above: Performed By: #### 2 97136 ####[facility],[address] [place] [address] 67471 Nitrite Ql (U) Negative Normal NORMAL: NEGATIVE [facility] Comment on above: Performed By: #### 2 30854 ####[facility],[address] [place] [address] 16600 pH (U) 6 [pH] Normal NORMAL: 5.0-8.0 [facility] Comment on above: Performed By: #### 2 15863 ####[facility],[address] [place] [address] 98775 Protein Ql (U) 500 Abnormal NORMAL: NEGATIVE [facility] Comment on above: Performed By: #### 2 18691 ####[facility],[address] [place] [address] 73995 Rbc 0-5 Normal 0-3/hpf [facility] Comment on above: Performed By: #### 2 62880 ####[facility],[address] [place] [address] 26974 Sp [place] 1.025 Normal NORMAL: 1.010-1.030 [facility] Comment on above: Performed By: #### 2 09251 ####[facility],[address] [place] [address] Specimen Type R Normal [facility] Comment on above: Performed By: #### 2 69799 ####[facility],[address] [place] [address] Urinalysis dipstick W Reflex Microscopic panel (U) SEE BELOW Normal [facility] Comment on above: Result Comment: MICR OSCOPIC Performed By: #### 2 14823 ####[facility],[address] [place] [address] Urobilinog 1 Abnormal NORMAL: NORMAL [facility] Comment on above: Performed By: #### 2 86261 ####[facility],[address] [place], [place] [id number] Wbc NONE Normal 0-5/hpf [facility] Comment on above: Performed By: #### 2 61611 ####[facility],[address] [place], [place] [id number] Yeast NONE Normal [facility] Comment on above: Performed By: #### 2 19327 ####[facility],[address] [place] [address] VBGon 06-16-2025 vBE -3 mmol/L Low -2 - 3 [facility] Comment on above: Performed By: #### 2 71004 ####[facility],[address] [place] [address] vHCO3 28 mmol/L Normal 23 - 28 [facility] Comment on above: Performed By: #### 2 91205 ####[facility],[address] [place], [place] [id number] vpCO2 109 mmHg High 41 - 51 [facility] Comment on above: Performed By: #### 2 24421 ####[facility],[address] [place] [address],[place] [address] vpH 7.02 Low 7.31 - 7.41 [facility] Comment on above: Performed By: #### 2 65200 ####[facility],[address] [place] [address],[place] [address] vpO2 42 mmHg Normal [facility] Comment on above: Performed By: #### 2 65230 ####[facility],[address] [place] [address],[place] [address] vsO2 51 % Normal [facility] Comment on above: Performed By: #### 2 79255 ####[facility],[address] [place] [address],[facility] [address] vBE 1 mmol/L Normal -2 - 3 [facility] Comment on above: Performed By: #### 2 50302 ####[facility],[address] [place] [address],[place] [address] vHCO3 31 mmol/L High 23 - 28 [facility] Comment on above: Performed By: #### 2 07027 ####[facility],[address] [place] [address],[place] [address] vpCO2 101 mmHg High 41 - 51 [facility] Comment on above: Performed By: #### 2 20989 ####[facility],[address] [place] [address],[place] [address] vpH 7.08 Low 7.31 - 7.41 [facility] Comment on above: Performed By: #### 2 90777 ####[facility],[address] [place] [address],[place] [address] vpO2 33 mmHg Normal [facility] Comment on above: Performed By: #### 2 88399 ####[facility],[address] [place] [address],[place] [address] vsO2 39 % Normal [facility] Comment on above: Performed By: #### 2 69440 ####[facility],[address] [place] [address] XR CHEST 1 VIEWon 06-16-2025 XR CHEST [...] 10:44:49 AM Ordering Provider: VANDANA DOS SANTOS [facility] BMP with eGFRon 03-07-2025 AGE 70 years Normal [facility] Comment on above: Performed By: #### 2 58110 ####[facility],[address] [place] [address] Anion gap [Moles/Vol] 9 mmol/L Low 10 - 20 [facility] Comment on above: Performed By: #### 2 52580 ####[facility],[address] [place] [address] 47772 BMP with eGFR Normal [facility] Comment on above: Result Comment: BASI C METABOLIC PANEL Performed By: #### 2 25458 ####[facility],[address] [place], [place] [id number] Calcium [Mass/Vol] 8.7 mg/dL Normal 8.5 - 10.1 [facility] Comment on above: Performed By: #### 2 36306 ####[facility],[address] [place] [address] Chloride [Moles/Vol] 103 mmol/L Normal 98 - 107 [facility] Comment on above: Performed By: #### 2 45765 ####[facility],[address] [place] [address] CO2 [Moles/Vol] 31.6 mmol/L Normal 21.0 - 32.0 [facility] Comment on above: Performed By: #### 2 03810 ####[facility],[address] [place] [address] Creatinine [Mass/Vol] 1.16 mg/dL High 0.55 - 1.02 [facility] Comment on above: Performed By: #### 2 05982 ####[facility],[address] [place] [address] eGFR 46 ML/MINUTE Low 60 - 999 [facility] Comment on above: Performed By: #### 2 51377 ####[facility],[address] [place] [address] eGFR(AA) 56 ML/MINUTE Low 60 - 999 [facility] Comment on above: Result Comment: ACCO RDING TO THE NATIONAL KIDNEY DISEASE EDUCATION PROGRAM(NKDE), A NORMAL eGFRIS A VALUE GREATER THAN OR EQUAL TO 60 ML/MIN/1.73 SQ METERS.CHRONIC KIDNEY DISEASE: <60mL/MIN/1.73 SQ METERSKIDNEY FAILURE: <15mL/MIN/1.73 SQ METERSTHIS TEST SHOULD ONLY BE USED FOR PATIENTS 18 YEARS OF AGE AND OLDER. Performed By: #### 2 00429 ####[facility],[address] [place] [address] Glucose [Mass/Vol] 96 mg/dL Normal 74 - 106 [facility] Comment on above: Performed By: #### 2 14658 ####[facility] [place] [address]28 Potassium [Moles/Vol] 3.4 mmol/L Low 3.5 - 5.1 [facility] Comment on above: Performed By: #### 2 48830 ####[facility],[address] [place] [address]32 Sodium [Moles/Vol] 140 mmol/L Normal 136 - 145 [facility] Comment on above: Performed By: #### 2 94384 ####[facility],[address] [place] [address] 45783 Urea nitrogen [Mass/Vol] 25 mg/dL High 7 - 18 [facility] Comment on above: Performed By: #### 2 00358 ####[facility],[address] [place] [address] 10784 CMP with eGFRon 11-13-2024 AGE 69 years Normal [facility] Comment on above: Performed By: #### 2 60324 ####[facility],[address] [place] [address]391 Albumin [Mass/Vol] 2.4 g/dL Low 3.4 - 5.0 [facility] Comment on above: Performed By: #### 2 81642 ####[facility],[address] [place] [address] 37549 Albumin/Globulin [Mass ratio] 0.8 {ratio} Low 0.9 - 1.6 [facility] Comment on above: Performed By: #### 2 72278 ####[facility],[address] [place] [address]1901 ALK PHOS 57 U/L Normal 46 - 116 [facility] Comment on above: Performed By: #### 2 50305 ####[facility],[address] [place] [address] 49822 ALT [Catalytic activity/Vol] 55 U/L Normal 16 - 63 [facility] Comment on above: Performed By: #### 2 78979 ####[facility],[address] [place] [address] 87251 Anion gap [Moles/Vol] 9 mmol/L Low 10 - 20 [facility] Comment on above: Performed By: #### 2 71605 ####[facility],[address] [place] [address] 45969 AST [Catalytic activity/Vol] 37 U/L Normal 13 - 39 [facility] Comment on above: Performed By: #### 2 78150 ####[facility],[address] [place] [address] 68485 B/C RATIO 12 ratio Normal 0 - 30 [facility] Comment on above: Performed By: #### 2 44057 ####[facility],[address] [place] [address] 17353 Bilirubin [Mass/Vol] 0.3 mg/dL Normal 0.2 - 1.0 [facility] Comment on above: Performed By: #### 2 20467 ####[facility],[address] [place] [address] 20705 Calcium [Mass/Vol] 7.9 mg/dL Low 8.5 - 10.1 [facility] Comment on above: Performed By: #### 2 34403 ####[facility],[address] [place] [address] 45984 Chloride [Moles/Vol] 106 mmol/L Normal 98 - 107 [facility] Comment on above: Performed By: #### 2 57884 ####[facility],[address] [place] [address] 94929 CMP with eGFR Normal [facility] Comment on above: Result Comment: COMP REHENSIVE METABOLIC PANEL Performed By: #### 2 96809 ####[facility],[address] [place] [address] 28316 CO2 [Moles/Vol] 28.2 mmol/L Normal 21.0 - 32.0 [facility] Comment on above: Performed By: #### 2 97698 ####[facility],[address] [place] [address] 28532 Creatinine [Mass/Vol] 0.91 mg/dL Normal 0.55 - 1.02 [facility] Comment on above: Performed By: #### 2 06831 ####[facility],[address] [place] [address] 31951 GFR/1.73 sq M.predicted among non-blacks MDRD (S/P/Bld) [Vol rate/Area] mL/min/{1.73_m2} Normal 60 - 999 [facility] Comment on above: Performed By: #### 2 91948 ####[facility],[address] [place] [address] Result Comment: ACCO RDING TO THE NATIONAL KIDNEY DISEASE EDUCATION PROGRAM(NKDE), A NORMAL eGFRIS A VALUE GREATER THAN OR EQUAL TO 60 ML/MIN/1.73 SQ METERS.CHRONIC KIDNEY DISEASE: <60mL/MIN/1.73 SQ METERSKIDNEY FAILURE: <15mL/MIN/1.73 SQ METERSTHIS TEST SHOULD ONLY BE USED FOR PATIENTS 18 YEARS OF AGE AND OLDER. Globulin (S) [Mass/Vol] 3.1 g/dL Normal 1.5 - 3.8 [facility] Comment on above: Performed By: #### 2 22341 ####[facility],[address] [place] [address] 81564 Glucose [Mass/Vol] 96 mg/dL Normal 74 - 106 [facility] Comment on above: Performed By: #### 2 18759 ####[facility],[address] [place] [address]956 Potassium [Moles/Vol] 3.8 mmol/L Normal 3.5 - 5.1 [facility] Comment on above: Performed By: #### 2 09536 ####[facility],[address] [place] [address] 12074 Protein [Mass/Vol] 5.5 g/dL Low 6.4 - 8.2 [facility] Comment on above: Performed By: #### 2 77267 ####[facility],[address] [place] [address] 47573 Sodium [Moles/Vol] 139 mmol/L Normal 136 - 145 [facility] Comment on above: Performed By: #### 2 68993 ####[facility],[address] [place] [address] 94277 Urea nitrogen [Mass/Vol] 11 mg/dL Normal 7 - 18 [facility] Comment on above: Performed By: #### 2 30708 ####[facility],[address] [place] [address] 99569 LIPID PROFILEon 11-13-2024 Cholesterol [Mass/Vol] 131 mg/dL Normal 0 - 240 [facility] Comment on above: Performed By: #### 2 56645 ####[facility],[address] [place] [address] 61705 Cholesterol in HDL [Mass/Vol] 50 mg/dL Normal 40 - 60 [facility] Comment on above: Performed By: #### 2 06472 ####[facility],[address] [place] [address] 06447 Cholesterol in LDL [Mass/Vol] 61 mg/dL Normal 0 - 129 [facility] Comment on above: Performed By: #### 2 43251 ####[facility],[address] [place] [address] 40896 Cholesterol.total/Cho lesterol in HDL [Mass ratio] 2.6 {ratio} Normal 0.0 - 5.0 [facility] Comment on above: Performed By: #### 2 04750 ####[facility],[address] [place] [address] 29312 Lipid 1996 panel Normal [facility] Comment on above: Result Comment: LIPI D PROFILE Performed By: #### 2 72313 ####[facility],[address] [place] [address] 63367 Triglyceride [Mass/Vol] 98 mg/dL Normal 0 - 150 [facility] Comment on above: Performed By: #### 2 90156 ####[facility],[address] [place] [address] 44927 .Auto Diffon 11-09-2024 Basophil, Absolute 0.1 10 3/mcL Normal 0.0-0.3 [facility] Comment on above: Performed By: #### L AC #### [address] [address] Basophils/100 WBC (Bld) 1.2 % Normal 0.0-2.5 [facility] Comment on above: Performed By: #### L AC #### [address] [address] Eosinophil, Absolute 0.2 10 3/mcL Normal 0.0-0.7 [facility] Comment on above: Performed By: #### L AC #### [address] [address] Eosinophils/100 WBC (Bld) 2.0 % Normal 0.0-6.0 [facility] Comment on above: Performed By: #### L AC #### [address] [address] Lymphocyte, Absolute 2.3 10 3/mcL Normal 0.9-4.3 [facility] Comment on above: Performed By: #### L AC #### [address] [address] Lymphocytes/100 WBC (Bld) 27.4 % Normal 20.0-40.0 [facility] Comment on above: Performed By: #### L AC #### [address] [address] Monocyte, Absolute 1.1 10 3/mcL Normal 0.1-1.4 [facility] Comment on above: Performed By: #### L AC #### [address] [address] Monocytes/100 WBC (Bld) 12.9 % Normal 2.0-13.0 [facility] Comment on above: Performed By: #### L AC #### [address] [address] Neutrophils/100 WBC (Bld) 56.5 % Normal 50.0-75.0 [facility] Comment on above: Performed By: #### L AC #### [address] [address] .GFRon 11-09-2024 GFR >60 Normal [facility] Comment on above: Result Comment: GFR [...] meters Performed By: #### L AC #### [address] [address] GFR Non- >60 Normal [facility] Comment on above: Result Comment: [...] meters Performed By: #### L AC #### [address] [address] .NEUABSon 11-09-2024 Neutrophil, Absolute 4.7 10 3/mcL Normal 2.3-8.1 [facility] Comment on above: Performed By: #### L AC #### [address] [address] BMPon 11-09-2024 BUN/Creatinine Ratio 29.6 ratio High 10.0-22.0 [facility] Comment on above: Performed By: #### L AC #### [address] [address] Calcium [Mass/Vol] 8.5 mg/dL Low 8.7-10.4 [facility] Comment on above: Performed By: #### L AC #### [address] [address] Chloride [Moles/Vol] 104 mmol/L Normal 98-110 [facility] Comment on above: Performed By: #### L AC #### [address] [address] CO2 [Moles/Vol] 26 mmol/L Normal 22-32 [facility] Comment on above: Performed By: #### L AC #### [address] [address] Creatinine [Mass/Vol] 0.81 mg/dL Normal 0.50-1.20 [facility] Comment on above: Result Comment: Test ing performed on [employer] analyzer using enzymatic creatinine methodology. Performed By: #### L AC #### [address] [address] Electrolyte Balance 7.0 mEq/L Normal 4.0-15.0 [facility] Comment on above: Performed By: #### L AC #### [address] [address] Glucose [Mass/Vol] 106 mg/dL Normal 82-115 [facility] Comment on above: Performed By: #### L AC #### [address] [address] Potassium [Moles/Vol] 3.4 mmol/L Low 3.5-5.0 [facility] Comment on above: Performed By: #### L AC #### [address] [address] Sodium [Moles/Vol] 137 mmol/L Normal 136-145 [facility] Comment on above: Performed By: #### L AC #### [place] [address] Urea nitrogen [Mass/Vol] 24.0 mg/dL High 8.0-22.0 [facility] Comment on above: Performed By: #### L AC #### [place] [id number] CBCon 11-09-2024 Erythrocyte distribution width (RBC) [Ratio] 14.5 % Normal 11.5-15.5 [facility] Comment on above: Performed By: #### L AC #### [place] [address] Hematocrit (Bld) [Volume fraction] 35.6 % Normal 34.0-46.0 [facility] Comment on above: Performed By: #### L AC #### [place] [address] Hgb 11.9 G/dL Low 12.0-16.0 [facility] Comment on above: Performed By: #### L AC #### [place] [address] MCH (RBC) [Entitic mass] 30.2 pg Normal 27.0-33.0 [facility] Comment on above: Performed By: #### L AC #### [place] [address] MCHC 33.5 G/dL Normal 32.0-36.0 [facility] Comment on above: Performed By: #### L AC #### [place] [id number] MCV (RBC) [Entitic vol] 90.2 fL Normal 80.0-99.0 [facility] Comment on above: Performed By: #### L AC #### [place] [address] Platelet 402 10 3/mcL Normal 150-450 [facility] Comment on above: Performed By: #### L AC #### [place] [address] Platelet mean volume (Bld) [Entitic vol] 7.4 fL Normal 6.6-10.5 [facility] Comment on above: Performed By: #### L AC #### [place] [address] RBC 3.95 10 6/mcL Low 4.10-5.30 [facility] Comment on above: Performed By: #### L AC #### [place] [id number] [place] [address] WBC 8.4 10 3/mcL Normal 4.5-10.8 [facility] Comment on above: Performed By: #### L AC #### [place] [address] LABORATORYOrdered By: SYSTEM SYSTEM on 11-09-2024 Basophils [...] above: Interpretive Data: T esting performed on [employer] analyzer using enzymatic creatinine methodology. Electrolyte Balance [...] (S/P/Bld) [Vol rate/Area] ml/min/1.73sqm Invalid Interpretation Code CelePost S Comment on above: Interpretive Data: GFR [...] 11-09-2024 Magnesium [Mass/Vol] 2.1 mg/dL Normal 1.6-2.4 [facility] Comment on above: Performed By: #### L AC #### [place] [address] .Auto Diffon 11-08-2024 Basophil, Absolute 0.1 10 3/mcL Normal 0.0-0.3 [facility] Comment on above: Performed By: #### C BC, ADIFF, ANEU, BMP, MG, GFR ####[address] [address] Basophils/100 WBC (Bld) 1.4 % Normal 0.0-2.5 [facility] Comment on above: Performed By: #### C BC, ADIFF, ANEU, BMP, MG, GFR ####[address] [address] Eosinophil, Absolute 0.2 10 3/mcL Normal 0.0-0.7 [facility] Comment on above: Performed By: #### C BC, ADIFF, ANEU, BMP, MG, GFR ####[address] [address] Eosinophils/100 WBC (Bld) 2.7 % Normal 0.0-6.0 [facility] Comment on above: Performed By: #### C BC, ADIFF, ANEU, BMP, MG, GFR ####[address] [address] Lymphocyte, Absolute 1.9 10 3/mcL Normal 0.9-4.3 [facility] Comment on above: Performed By: #### C BC, ADIFF, ANEU, BMP, MG, GFR ####[address] [address] Lymphocytes/100 WBC (Bld) 26.7 % Normal 20.0-40.0 [facility] Comment on above: Performed By: #### C BC, ADIFF, ANEU, BMP, MG, GFR ####[address] [address] Monocyte, Absolute 0.9 10 3/mcL Normal 0.1-1.4 [facility] Comment on above: Performed By: #### C BC, ADIFF, ANEU, BMP, MG, GFR ####[address] [address] Monocytes/100 WBC (Bld) 13.0 % Normal 2.0-13.0 [facility] Comment on above: Performed By: #### C BC, ADIFF, ANEU, BMP, MG, GFR ####[address] [address] Neutrophils/100 WBC (Bld) 56.2 % Normal 50.0-75.0 [facility] Comment on above: Performed By: #### C BC, ADIFF, ANEU, BMP, MG, GFR ####[address] [address] .GFRon 11-08-2024 GFR >60 Normal [facility] Comment on above: Result Comment: GFR [...] C BC, ADIFF, ANEU, BMP, MG, GFR ####[place] [address] GFR Non- >60 [facility] Comment on above: Result Comment: [...] C BC, ADIFF, ANEU, BMP, MG, GFR ####[address] [address] .NEUABSon 11-08-2024 Neutrophil, Absolute 4.1 10 3/mcL Normal 2.3-8.1 [facility] Comment on above: Performed By: #### C BC, ADIFF, ANEU, BMP, MG, GFR ####[address] [address] BMPon 11-08-2024 BUN/Creatinine Ratio 28.2 ratio High 10.0-22.0 [facility] Comment on above: Performed By: #### C BC, ADIFF, ANEU, BMP, MG, GFR ####[address] [address] Calcium [Mass/Vol] 8.8 mg/dL Normal 8.7-10.4 [facility] Comment on above: Performed By: #### C BC, ADIFF, ANEU, BMP, MG, GFR ####[place] [address] Chloride [Moles/Vol] 105 mmol/L Normal 98-110 [facility] Comment on above: Performed By: #### C BC, ADIFF, ANEU, BMP, MG, GFR ####[place] [id number] CO2 [Moles/Vol] 27 mmol/L Normal 22-32 [facility] Comment on above: Performed By: #### C BC, ADIFF, ANEU, BMP, MG, GFR ####[place] [id number] Creatinine [Mass/Vol] 0.71 mg/dL Normal 0.50-1.20 [facility] Comment on above: Result Comment: Test ing performed on [employer] analyzer using enzymatic creatinine methodology. Performed By: #### C BC, ADIFF, ANEU, BMP, MG, GFR ####[place] [address] Electrolyte Balance 7.0 mEq/L Normal 4.0-15.0 [facility] Comment on above: Performed By: #### C BC, ADIFF, ANEU, BMP, MG, GFR ####[place] [id number] Glucose [Mass/Vol] 100 mg/dL Normal 82-115 [facility] Comment on above: Performed By: #### C BC, ADIFF, ANEU, BMP, MG, GFR ####[place] [address] Potassium [Moles/Vol] 3.5 mmol/L Normal 3.5-5.0 [facility] Comment on above: Performed By: #### C BC, ADIFF, ANEU, BMP, MG, GFR ####[place] [address] Sodium [Moles/Vol] 139 mmol/L Normal 136-145 [facility] Comment on above: Performed By: #### C BC, ADIFF, ANEU, BMP, MG, GFR ####[place] [address] Urea nitrogen [Mass/Vol] 20.0 mg/dL Normal 8.0-22.0 [facility] Comment on above: Performed By: #### C BC, ADIFF, ANEU, BMP, MG, GFR ####[place] [address] CBCon 11-08-2024 Erythrocyte distribution width (RBC) [Ratio] 14.1 % Normal 11.5-15.5 [facility] Comment on above: Performed By: #### C BC, ADIFF, ANEU, BMP, MG, GFR ####[place] [address] Hematocrit (Bld) [Volume fraction] 36.1 % Normal 34.0-46.0 [facility] Comment on above: Performed By: #### C BC, ADIFF, ANEU, BMP, MG, GFR ####[place] [address] Hgb 12.1 G/dL Normal 12.0-16.0 [facility] Comment on above: Performed By: #### C BC, ADIFF, ANEU, BMP, MG, GFR ####[place] [address] MCH (RBC) [Entitic mass] 30.0 pg Normal 27.0-33.0 [facility] Comment on above: Performed By: #### C BC, ADIFF, ANEU, BMP, MG, GFR ####[place] [address] MCHC 33.5 G/dL Normal 32.0-36.0 [facility] Comment on above: Performed By: #### C BC, ADIFF, ANEU, BMP, MG, GFR ####[place] [address] MCV (RBC) [Entitic vol] 89.7 fL Normal 80.0-99.0 [facility] Comment on above: Performed By: #### C BC, ADIFF, ANEU, BMP, MG, GFR ####[place] [address] Platelet 402 10 3/mcL Normal 150-450 [facility] Comment on above: Performed By: #### C BC, ADIFF, ANEU, BMP, MG, GFR ####[place] [address] Platelet mean volume (Bld) [Entitic vol] 7.5 fL Normal 6.6-10.5 [facility] Comment on above: Performed By: #### C BC, ADIFF, ANEU, BMP, MG, GFR ####[place] [address] RBC 4.02 10 6/mcL Low 4.10-5.30 [facility] Comment on above: Performed By: #### C BC, ADIFF, ANEU, BMP, MG, GFR ####[place] [address] WBC 7.3 10 3/mcL Normal 4.5-10.8 [facility] Comment on above: Performed By: #### C BC, ADIFF, ANEU, BMP, MG, GFR ####[place] [address] LABORATORYOrdered By: Tricia Kinney on 11-08-2024 Glucose [Mass/Vol] 107 mg/dL Normal 82 - 115 mg/dL [facility] LABORATORYOrdered By: SYSTEM SYSTEM on 11-08-2024 Basophils [...] above: Interpretive Data: T esting performed on EcoDomus analyzer using enzymatic creatinine methodology. Electrolyte Balance [...] 11-08-2024 Magnesium [Mass/Vol] 2.0 mg/dL Normal 1.6-2.4 [facility] Comment on above: Performed By: #### C BC, ADIFF, ANEU, BMP, MG, GFR ####[address] [address] .Auto Diffon 11-07-2024 Basophil, Absolute 0.1 10 3/mcL Normal 0.0-0.3 [facility] Comment on above: Performed By: #### L AC #### [address] [address] Basophils/100 WBC (Bld) 1.0 % Normal 0.0-2.5 [facility] Comment on above: Performed By: #### L AC #### [facility] [address] [place] [address] Eosinophil, Absolute 0.1 10 3/mcL Normal 0.0-0.7 [facility] Comment on above: Performed By: #### L AC #### [facility] [address] [place] [address] Eosinophils/100 WBC (Bld) 0.9 % Normal 0.0-6.0 [facility] Comment on above: Performed By: #### L AC #### [facility] [address] [place] [address] Lymphocyte, Absolute 1.3 10 3/mcL Normal 0.9-4.3 [facility] Comment on above: Performed By: #### L AC #### [facility] [address] [place] [address] Lymphocytes/100 WBC (Bld) 14.5 % Low 20.0-40.0 [facility] Comment on above: Performed By: #### L AC #### [facility] [address] [place] [address] Monocyte, Absolute 1.0 10 3/mcL Normal 0.1-1.4 [facility] Comment on above: Performed By: #### L AC #### [address] [address] Monocytes/100 WBC (Bld) 10.3 % Normal 2.0-13.0 [facility] Comment on above: Performed By: #### L AC #### [address] [address] Neutrophils/100 WBC (Bld) 73.3 % Normal 50.0-75.0 [facility] Comment on above: Performed By: #### L AC #### [address] [address] .GFRon 11-07-2024 GFR Non- >60 Normal [facility] Comment on above: Result Comment: [...] meters Performed By: #### L AC #### [address] [address] GFR >60 Normal [facility] Comment on above: Result Comment: GFR [...] meters Performed By: #### L AC #### [address] [address] .NEUABSon 11-07-2024 Neutrophil, Absolute 6.8 10 3/mcL Normal 2.3-8.1 [facility] Comment on above: Performed By: #### L AC #### [address] [address] BMPon 11-07-2024 BUN/Creatinine Ratio 38.2 ratio High 10.0-22.0 [facility] Comment on above: Performed By: #### L AC #### [address] [address] Calcium [Mass/Vol] 9.0 mg/dL Normal 8.7-10.4 [facility] Comment on above: Performed By: #### L AC #### [address] [address] Chloride [Moles/Vol] 102 mmol/L Normal 98-110 [facility] Comment on above: Performed By: #### L AC #### [address] [address] CO2 [Moles/Vol] 27 mmol/L Normal 22-32 [facility] Comment on above: Performed By: #### L AC #### [address] [address] Creatinine [Mass/Vol] 0.68 mg/dL Normal 0.50-1.20 [facility] Comment on above: Result Comment: Test ing performed on EcoDomus analyzer using enzymatic creatinine methodology. Performed By: #### L AC #### [address] [address] Electrolyte Balance 9.0 mEq/L Normal 4.0-15.0 [facility] MA[facility] Comment on above: Performed By: #### L AC #### [place] [phone] Glucose [Mass/Vol] 108 mg/dL Normal 82-115 [facility] Comment on above: Performed By: #### L AC #### [place] [address] Potassium [Moles/Vol] 3.6 mmol/L Normal 3.5-5.0 [facility] Comment on above: Performed By: #### L AC #### [place] [address] Sodium [Moles/Vol] 138 mmol/L Normal 136-145 [facility] Comment on above: Performed By: #### L AC #### [place] [address] Urea nitrogen [Mass/Vol] 26.0 mg/dL High 8.0-22.0 [facility] Comment on above: Performed By: #### L AC #### [address] [address] CBCon 11-07-2024 Erythrocyte distribution width (RBC) [Ratio] 14.2 % Normal 11.5-15.5 [facility] Comment on above: Performed By: #### L AC #### [address] [address] Hematocrit (Bld) [Volume fraction] 33.8 % Low 34.0-46.0 [facility] Comment on above: Performed By: #### L AC #### [address] [address] Hgb 11.2 G/dL Low 12.0-16.0 [facility] Comment on above: Performed By: #### L AC #### [place] [address] MCH (RBC) [Entitic mass] 29.6 pg Normal 27.0-33.0 [facility] Comment on above: Performed By: #### L AC #### [place] [address] MCHC 33.0 G/dL Normal 32.0-36.0 [facility] Comment on above: Performed By: #### L AC #### [place] [address] MCV (RBC) [Entitic vol] 89.7 fL Normal 80.0-99.0 [facility] Comment on above: Performed By: #### L AC #### [place] [address] Platelet 391 10 3/mcL Normal 150-450 [facility] Comment on above: Performed By: #### L AC #### [place] [address] Platelet mean volume (Bld) [Entitic vol] 7.5 fL Normal 6.6-10.5 [facility] Comment on above: Performed By: #### L AC #### [place] [address] RBC 3.77 10 6/mcL Low 4.10-5.30 [facility] Comment on above: Performed By: #### L AC #### [place] [address] WBC 9.3 10 3/mcL Normal 4.5-10.8 [facility] Comment on above: Performed By: #### L AC #### [place] [address] ED MED ADMINISTRATION DETAIL on 11-07-2024 ED MED ADMINISTRATION DETAIL Normal [facility] ED NURSES CLINICAL NOTEon ED NURSES CLINICAL NOTE Normal [facility] ED ORDER SHEET (CPOE ONLY)on 11-07-2024 ED ORDER SHEET (CPOE ONLY) Normal [facility] ED PHYSICIAN CLINICAL REPORT on 01-16-2025 ED PHYSICIAN CLINICAL REPORT Normal [facility] ED PHYSICIAN DISCHARGE REPOR Ton 11-07-2024 ED PHYSICIAN DISCHARGE REPORT Normal [facility] ED SUPER BILLon 11-07-2024 ED SUPER BILL Normal [facility] ED VISIT SUMMARYon ED VISIT SUMMARY Normal [facility] ED VITALS FLOW SHEETon 11-07 ED VITALS FLOW SHEET Normal [facility] LABORATORYOrdered By: Ariane Salmon on 11-07-2024 Blood Glucose Testing Reason Routine (11/07/24 3:30 AM) [facility] Glucose [Mass/Vol] 116 mg/dL High 82 - 115 mg/dL [facility] LABORATORYOrdered By: SYSTEM SYSTEM on 11-07-2024 Basophils [...] above: Interpretive Data: T esting performed on EcoDom[employer] analyzer using enzymatic creatinine methodology. Electrolyte Balance [...] (S/P/Bld) [Vol rate/Area] ml/min/1.73sqm Invalid Interpretation Code [facility] Comment on above: Interpretive Data: GFR Population [...] (S/P/Bld) [Vol rate/Area] ml/min/1.73sqm Invalid Interpretation Code [facility] Comment on above: Interpretive Data: GFR Population [...] 11-07-2024 Magnesium [Mass/Vol] 2.0 mg/dL Normal 1.6-2.4 [facility] Comment on above: Performed By: #### L #### [place] [address] XR CHEST 1 VIEWon 11-07-2024 XR CHEST [...] 11/07/2024 6:54:29 AM Ordering Provider: EMILIO Soto [facility] .Auto Diffon 11-06-2024 Basophil, Absolute 0.1 10 3/mcL Normal 0.0-0.3 [facility] Comment on above: Performed By: #### L AC #### [address] [address] Basophils/100 WBC (Bld) 1.0 % Normal 0.0-2.5 [facility] Comment on above: Performed By: #### L AC #### [address] [address] Eosinophil, Absolute 0.1 10 3/mcL Normal 0.0-0.7 [facility] Comment on above: Performed By: #### L AC #### [address] [address] Eosinophils/100 WBC (Bld) 0.8 % Normal 0.0-6.0 [facility] Comment on above: Performed By: #### L AC #### [address] [address] Lymphocyte, Absolute 1.9 10 3/mcL Normal 0.9-4.3 [facility] Comment on above: Performed By: #### L AC #### [address] [address] Lymphocytes/100 WBC (Bld) 20.1 % Normal 20.0-40.0 [facility] Comment on above: Performed By: #### L AC #### [facility] [address] [place] [address] Monocyte, Absolute 0.9 10 3/mcL Normal 0.1-1.4 [facility] Comment on above: Performed By: #### L AC #### [facility] [address] [place] [address] Monocytes/100 WBC (Bld) 9.5 % Normal 2.0-13.0 [facility] Comment on above: Performed By: #### L AC #### [facility] [address] [place] [address] Neutrophils/100 WBC (Bld) 68.6 % Normal 50.0-75.0 [facility] Comment on above: Performed By: #### L AC #### [address] [address] .GFRon 11-06-2024 GFR >60 Normal [facility] Comment on above: Result Comment: GFR [...] meters Performed By: #### L AC #### [facility] [address] [place] [address] GFR Non- 60 ml/min/1.73sqm [facility] MAIN Comment on above: Result Comment: [...] meters Performed By: #### L AC #### [place] [address] GFR >60 [facility] MAIN Comment on above: Result Comment: [...] meters Performed By: #### L AC #### [place] [address] GFR Non- >60 [facility] MAIN Comment on above: Result Comment: [...] meters Performed By: #### L AC #### [place] [phone] .NEUABSon 11-06-2024 Neutrophil, Absolute 6.4 10 3/mcL Normal 2.3-8.1 [facility]IN Comment on above: Performed By: #### L AC #### [address] [address] BGon 11-06-2024 Base excess Calc (Bld) [Moles/Vol] 3.6 mmol/L Normal [facility] Comment on above: Performed By: #### C BC, ADIFF, ANEU, APTT, CMP, HFP, GFR #### [place] [address] CO2 [Moles/Vol] 27.9 mmol/L Normal 22.0-30.0 [facility] Comment on above: Performed By: #### C BC, ADIFF, ANEU, APTT, CMP, HFP, GFR #### [place] [address] HCO3 (Bld) [Moles/Vol] 26.8 mmol/L Normal 21.0-29.0 [facility] Comment on above: Performed By: #### C BC, ADIFF, ANEU, APTT, CMP, HFP, GFR #### [place] [address] Oxygen (Bld) [Partial pressure] 97.0 mm[Hg] Normal 74.0-108.0 [facility] Comment on above: Performed By: #### C BC, ADIFF, ANEU, APTT, CMP, HFP, GFR #### [place] [address] Oxygen saturation in Blood 97.4 % High 92.0-96.0 [facility] Comment on above: Performed By: #### C BC, ADIFF, ANEU, APTT, CMP, HFP, GFR #### [place] [address] pCO2 35.4 mmHg Normal 32.0-46.0 [facility] Comment on above: Performed By: #### C BC, ADIFF, ANEU, APTT, CMP, HFP, GFR #### [place] [address] pH (Bld) 7.497 [pH] High 7.380-7.460 [facility] Comment on above: Performed By: #### C BC, ADIFF, ANEU, APTT, CMP, HFP, GFR #### [address] [address] BMPon 11-06-2024 BUN/Creatinine Ratio 31.2 ratio High 10.0-22.0 [facility] Comment on above: Performed By: #### L AC #### [address] [address] Calcium [Mass/Vol] 8.5 mg/dL Low 8.7-10.4 [facility] Comment on above: Performed By: #### L AC #### [address] [address] Chloride [Moles/Vol] 103 mmol/L Normal 98-110 [facility] Comment on above: Performed By: #### L AC #### [address] [address] CO2 [Moles/Vol] 32 mmol/L Normal 22-32 [facility] Comment on above: Performed By: #### L AC #### [address] [address] Creatinine [Mass/Vol] 0.93 mg/dL Normal 0.50-1.20 [facility] MAIN Comment on above: Result Comment: Test ing performed on EcoDomus analyzer using enzymatic creatinine methodology. Performed By: #### L AC #### [address] [address] Electrolyte Balance 4.0 mEq/L Normal 4.0-15.0 [facility] MA[facility] Comment on above: Performed By: #### L AC #### [address] [address] Glucose [Mass/Vol] 89 mg/dL Normal 82-115 [facility] Comment on above: Performed By: #### L AC #### [address] [address] Potassium [Moles/Vol] 3.0 mmol/L Low 3.5-5.0 [facility] Comment on above: Performed By: #### L AC #### [address] [address] Sodium [Moles/Vol] 139 mmol/L Normal 136-145 [facility] Comment on above: Performed By: #### L AC #### [address] [address] Urea nitrogen [Mass/Vol] 29.0 mg/dL High 8.0-22.0 [facility] Comment on above: Performed By: #### L AC #### [place] [address] BUN/Creatinine Ratio 35.3 ratio High 10.0-22.0 [facility] Comment on above: Performed By: #### L AC #### [address] [address] Calcium [Mass/Vol] 8.5 mg/dL Low 8.7-10.4 [facility] Comment on above: Performed By: #### L AC #### [address] [address] Chloride [Moles/Vol] 101 mmol/L Normal 98-110 [facility] Comment on above: Performed By: #### L AC #### [address] [address] CO2 [Moles/Vol] 32 mmol/L Normal 22-32 [facility] Comment on above: Performed By: #### L AC #### [address] [address] Creatinine [Mass/Vol] 0.85 mg/dL Normal 0.50-1.20 [facility] Comment on above: Result Comment: Test ing performed on EcoDom[employer] analyzer using enzymatic creatinine methodology. Performed By: #### L AC #### [address] [address] Electrolyte Balance 7.0 mEq/L Normal 4.0-15.0 [facility] Comment on above: Performed By: #### L AC #### [address] [address] Glucose [Mass/Vol] 88 mg/dL Normal 82-115 [facility] Comment on above: Performed By: #### L AC #### [place] [address] Potassium [Moles/Vol] 3.0 mmol/L Low 3.5-5.0 [facility] Comment on above: Performed By: #### L AC #### [place] [address] Sodium [Moles/Vol] 140 mmol/L Normal 136-145 [facility] Comment on above: Performed By: #### L AC #### [place] [address] Urea nitrogen [Mass/Vol] 30.0 mg/dL High 8.0-22.0 [facility] Comment on above: Performed By: #### L AC #### [place] [address] CBCon 11-06-2024 Erythrocyte distribution width (RBC) [Ratio] 14.6 % Normal 11.5-15.5 [facility] Comment on above: Performed By: #### L AC #### [place] [address] Hematocrit (Bld) [Volume fraction] 30.7 % Low 34.0-46.0 [facility] Comment on above: Performed By: #### L AC #### [place] [address] Hgb 10.6 G/dL Low 12.0-16.0 [facility] Comment on above: Performed By: #### L AC #### [place] [address] MCH (RBC) [Entitic mass] 30.9 pg Normal 27.0-33.0 [facility] Comment on above: Performed By: #### L AC #### [place] [address] MCHC 34.4 G/dL Normal 32.0-36.0 [facility] Comment on above: Performed By: #### L AC #### [facility] [address] [place], [place] [address] MCV (RBC) [Entitic vol] 90.0 fL Normal 80.0-99.0 [facility] Comment on above: Performed By: #### L AC #### [facility] [address] [place] [address] Platelet 360 10 3/mcL Normal 150-450 [facility] Comment on above: Performed By: #### L AC #### [facility] [address] [place] [address] Platelet mean volume (Bld) [Entitic vol] 7.4 fL Normal 6.6-10.5 [facility] Comment on above: Performed By: #### L AC #### [facility] [address] [place] [address] RBC 3.41 10 6/mcL Low 4.10-5.30 [facility] Comment on above: Performed By: #### L AC #### [place] [address] WBC 9.4 10 3/mcL Normal 4.5-10.8 [facility] Comment on above: Performed By: #### L AC #### [facility] [address] [place] [address] LABORATORYOrdered By: Pamella Tao on 11-06-2024 Blood Glucose Testing Reason Routine (11/06/24 7:36 AM) [facility] Glucose [Mass/Vol] 99 mg/dL Normal 82 - 115 mg/dL [facility] LABORATORYOrdered By: Shreya moore on 11-06-2024 Blood Glucose Testing Reason Routine (11/06/24 3:27 AM) [facility] LABORATORYOrdered By: Faina Steel on 11-06-2024 Base [...] 11-06-2024 Magnesium [Mass/Vol] 2.2 mg/dL Normal 1.6-2.4 [facility] Comment on above: Performed By: #### L AC #### [address] [address] Magnesium [Mass/Vol] 2.0 mg/dL Normal 1.6-2.4 [facility] Comment on above: Performed By: #### L AC #### [address] [address] XR CHEST 1 VIEWon 11-06-2024 XR CHEST [...] 6:39:04 AM Ordering Provider: EMILIO REYES Normal [facility] .Auto Diffon 11-05-2024 Basophil, Absolute 0.1 10 3/mcL Normal 0.0-0.3 [facility] Comment on above: Performed By: #### D RUGS #### [address] [address] Basophils/100 WBC (Bld) 0.5 % Normal 0.0-2.5 [facility] Comment on above: Performed By: #### D RUGS #### [address] [address] Eosinophil, Absolute 0.0 10 3/mcL Normal 0.0-0.7 [facility] Comment on above: Performed By: #### D RUGS #### [address] [address] Eosinophils/100 WBC (Bld) 0.1 % Normal 0.0-6.0 [facility] Comment on above: Performed By: #### D RUGS #### [address] [address] Lymphocyte, Absolute 1.5 10 3/mcL Normal 0.9-4.3 [facility] Comment on above: Performed By: #### D RUGS #### [address] [address] Lymphocytes/100 WBC (Bld) 12.9 % Low 20.0-40.0 [facility] Comment on above: Performed By: #### D RUGS #### [address] [address] Monocyte, Absolute 1.2 10 3/mcL Normal 0.1-1.4 [facility] Comment on above: Performed By: #### D RUGS #### [address] [address] Monocytes/100 WBC (Bld) 10.6 % Normal 2.0-13.0 [facility] Comment on above: Performed By: #### D RUGS #### [address] [address] Neutrophils/100 WBC (Bld) 75.9 % High 50.0-75.0 [facility] Comment on above: Performed By: #### D RUGS #### [address] [address] .GFRon 11-05-2024 GFR >60 Normal [facility] Comment on above: Result Comment: GFR [...] meters Performed By: #### D RUGS #### [address] [address] GFR Non- >60 Normal [facility] Comment on above: Result Comment: [...] meters Performed By: #### D RUGS #### [address] [address] .NEUABSon 11-05-2024 Neutrophil, Absolute 8.7 10 3/mcL High 2.3-8.1 [facility] Comment on above: Performed By: #### D RUGS #### [address] [address] BGon 11-05-2024 Base excess Calc (Bld) [Moles/Vol] 4.1 mmol/L Normal [facility] Comment on above: Performed By: #### B G ####[address] [address] CO2 [Moles/Vol] 30.0 mmol/L Normal 22.0-30.0 [facility] Comment on above: Performed By: #### B G ####[place] [id number] HCO3 (Bld) [Moles/Vol] 28.7 mmol/L Normal 21.0-29.0 [facility] Comment on above: Performed By: #### B G ####[place] [address] Oxygen (Bld) [Partial pressure] 73.4 mm[Hg] Low 74.0-108.0 [facility] Comment on above: Performed By: #### Sidney G ####[place] [address] Oxygen saturation in Blood 94.7 % Normal 92.0-96.0 [facility] Comment on above: Performed By: #### Sidney G ####[place] [address] pCO2 42.9 mmHg Normal 32.0-46.0 [facility] Comment on above: Performed By: #### Sidney G ####[place] [address] pH (Bld) 7.443 [pH] Normal 7.380-7.460 [facility] Comment on above: Performed By: #### Sidney G ####[place] [address] CBCon 11-05-2024 Erythrocyte distribution width (RBC) [Ratio] 14.4 % Normal 11.5-15.5 [facility] Comment on above: Performed By: #### Amina RUGS #### [place] [address] Hematocrit (Bld) [Volume fraction] 34.4 % Normal 34.0-46.0 [facility] Comment on above: Performed By: #### D RUGS #### [place] [phone] Hgb 11.5 G/dL Low 12.0-16.0 [facility] Comment on above: Performed By: #### Amina RUGS #### [facility] [address] [place], [place] [address] MCH (RBC) [Entitic mass] 30.5 pg Normal 27.0-33.0 [facility] Comment on above: Performed By: #### Amina RUGS #### [place] [address] MCHC 33.5 G/dL Normal 32.0-36.0 [facility] Comment on above: Performed By: #### Amina RUGS #### [place] [address] MCV (RBC) [Entitic vol] 91.1 fL Normal 80.0-99.0 [facility] Comment on above: Performed By: #### Amina RUGBre #### [place] [address] Platelet 423 10 3/mcL Normal 150-450 [facility] Comment on above: Performed By: #### Amina RUGS #### [place] [address] Platelet mean volume (Bld) [Entitic vol] 7.6 fL Normal 6.6-10.5 [facility] Comment on above: Performed By: #### Amina RUGBre #### [place] [address] RBC 3.78 10 6/mcL Low 4.10-5.30 [facility] Comment on above: Performed By: #### Amina RUGS #### [place] [address] WBC 11.5 10 3/mcL High 4.5-10.8 [facility] Comment on above: Performed By: #### Amina RUGS #### [place] [address] CMPon 11-05-2024 Albumin Level 2.7 G/dL Low 3.2-4.8 [facility] Comment on above: Performed By: #### Amina RUGBre #### [place] [address] Albumin/Globulin [Mass ratio] 0.8 {ratio} Low 0.9-1.6 [facility] Comment on above: Performed By: #### Amina RUGBre #### [address] [address] ALP [Catalytic activity/Vol] 90 U/L Normal 38-126 [facility] Comment on above: Performed By: #### D RUGS #### [address] [address] ALT [Catalytic activity/Vol] 41 U/L Normal 10-49 [facility] Comment on above: Performed By: #### D RUGS #### [address] [address] AST [Catalytic activity/Vol] 51 U/L High 8-34 [facility] Comment on above: Performed By: #### D RUGS #### [address] [address] Bili Total 0.40 mg/dL Normal 0.20-1.20 [facility] Comment on above: Result Comment: Use of this assay is not recommended for patients undergoing treatment with eltrombopag due to the potential for falsely elevated results. Performed By: #### D RUGS #### [address] [address] BUN/Creatinine Ratio 28.7 ratio High 10.0-22.0 [facility] Comment on above: Performed By: #### D RUGBre #### [address] [address] Calcium [Mass/Vol] 8.5 mg/dL Low 8.7-10.4 [facility] Comment on above: Performed By: #### Amina RUGS #### [address] [address] Chloride [Moles/Vol] 101 mmol/L Normal 98-110 [facility] Comment on above: Performed By: #### D RUGS #### [address] [address] CO2 [Moles/Vol] 30 mmol/L Normal 22-32 [facility] Comment on above: Performed By: #### D RUGS #### [address] [address] Creatinine [Mass/Vol] 0.87 mg/dL Normal 0.50-1.20 [facility] Comment on above: Result Comment: Test ing performed on EcoDom[employer] analyzer using enzymatic creatinine methodology. Performed By: #### Amina RUGS #### [address] [address] Electrolyte Balance 8.0 mEq/L Normal 4.0-15.0 [facility] Comment on above: Performed By: #### Amina RUGS #### [address] [address] Globulin 3.3 G/dL Normal 1.5-3.8 [facility] Comment on above: Performed By: #### D RUGS #### [address] [address] Glucose [Mass/Vol] 116 mg/dL High 82-115 [facility] Comment on above: Performed By: #### Amina RUGS #### [address] [address] Potassium [Moles/Vol] 4.6 mmol/L Normal 3.5-5.0 [facility] Comment on above: Performed By: #### Amina GONZALESS #### [address] [address] Sodium [Moles/Vol] 139 mmol/L Normal 136-145 [facility] Comment on above: Performed By: #### D RUGS #### [address] [address] Total Protein 6.0 G/dL Normal 5.7-8.2 [facility] Comment on above: Performed By: #### Amina GONZALESS #### [address] [address] Urea nitrogen [Mass/Vol] 25.0 mg/dL High 8.0-22.0 [facility] Comment on above: Performed By: #### Amina RUGS #### [address] [address] LABORATORYOrdered By: SYSTEM SYSTEM on 11-05-2024 Albumin [...] 11-05-2024 Magnesium [Mass/Vol] 2.0 mg/dL Normal 1.6-2.4 [facility] Comment on above: Performed By: #### D RUGBre #### [place] [address] MYCOon 11-05-2024 Mycoplasma IgG Negative Normal [facility] Comment on above: Result Comment: INTE RPRETATION OF MYCOPLASMA IgG BY EIA: Negative: No detectable M. pneumoniae IgG antibody. Positive: Mycoplasma pneumoniae IgG antibody Detected. Equivocal: Equivocal for IgG antibodies to Mycoplasma pneumoniae. Suggest repeat testing in 10-14 days. Performed By: #### L AC #### [address] [address] XR CHEST 1 VIEWon 11-05-2024 XR CHEST [...] 11/05/2024 6:36:29 AM Ordering Provider: VANDANA Soto [facility] .Auto Diffon 11-04-2024 Basophil, Absolute 0.1 10 3/mcL Normal 0.0-0.3 [facility] Comment on above: Performed By: #### L AC #### [address] [address] Basophils/100 WBC (Bld) 0.5 % Normal 0.0-2.5 [facility] Comment on above: Performed By: #### L AC #### [address] [address] Eosinophil, Absolute 0.0 10 3/mcL Normal 0.0-0.7 [facility] Comment on above: Performed By: #### L AC #### [address] [address] Eosinophils/100 WBC (Bld) 0.0 % Normal 0.0-6.0 [facility] Comment on above: Performed By: #### L AC #### [address] [address] Lymphocyte, Absolute 0.5 10 3/mcL Low 0.9-4.3 [facility] Comment on above: Performed By: #### L AC #### [address] [address] Lymphocytes/100 WBC (Bld) 3.0 % Low 20.0-40.0 [facility] Comment on above: Performed By: #### L AC #### [address] [address] Monocyte, Absolute 0.6 10 3/mcL Normal 0.1-1.4 [facility] Comment on above: Performed By: #### L AC #### [address] [address] Monocytes/100 WBC (Bld) 3.2 % Normal 2.0-13.0 [facility] Comment on above: Performed By: #### L AC #### [address] [address] Neutrophils/100 WBC (Bld) 93.3 % High 50.0-75.0 [facility] Comment on above: Performed By: #### L AC #### [address] [address] .GFRon 11-04-2024 GFR >60 [facility]IN Comment on above: Result Comment: [...] meters Performed By: #### L AC #### [address] [address] GFR Non- >60 [facility] MAIN Comment on above: Result Comment: [...] meters Performed By: #### L AC #### [place] [address] .NEUABSon 11-04-2024 Neutrophil, Absolute 16.1 10 3/mcL High 2.3-8.1 [facility] Comment on above: Performed By: #### L AC #### [place] [phone] BGon 11-04-2024 Base excess Calc (Bld) [Moles/Vol] 6.2 mmol/L [facility] MAIN Comment on above: Performed By: #### C BC, ADIFF, ANEU, APTT, CMP, HFP, GFR #### [address] [address] CO2 [Moles/Vol] 33.3 mmol/L High 22.0-30.0 [facility] Comment on above: Performed By: #### C BC, ADIFF, ANEU, APTT, CMP, HFP, GFR #### [address] [address] HCO3 (Bld) [Moles/Vol] 31.8 mmol/L High 21.0-29.0 [facility] Comment on above: Performed By: #### C BC, ADIFF, ANEU, APTT, CMP, HFP, GFR #### [address] [address] Oxygen (Bld) [Partial pressure] 105.8 mm[Hg] Normal 74.0-108.0 [facility] Comment on above: Performed By: #### C BC, ADIFF, ANEU, APTT, CMP, HFP, GFR #### [place] [phone] Oxygen saturation in Blood 98.1 % High 92.0-96.0 [facility] Comment on above: Performed By: #### C BC, ADIFF, ANEU, APTT, CMP, HFP, GFR #### [place] [address] pCO2 49.5 mmHg High 32.0-46.0 [facility] Comment on above: Performed By: #### C BC, ADIFF, ANEU, APTT, CMP, HFP, GFR #### [place] [address] pH (Bld) 7.425 [pH] Normal 7.380-7.460 [facility] Comment on above: Performed By: #### C BC, ADIFF, ANEU, APTT, CMP, HFP, GFR #### [place] [address] CBCon 11-04-2024 Erythrocyte distribution width (RBC) [Ratio] 14.4 % Normal 11.5-15.5 [facility] Comment on above: Performed By: #### L AC #### [place] [address] Hematocrit (Bld) [Volume fraction] 35.3 % Normal 34.0-46.0 [facility] Comment on above: Performed By: #### L AC #### [place] [address] Hgb 11.9 G/dL Low 12.0-16.0 [facility] Comment on above: Performed By: #### L AC #### [place] [phone] MCH (RBC) [Entitic mass] 30.6 pg Normal 27.0-33.0 [facility] Comment on above: Performed By: #### L AC #### [place] [address] MCHC 33.7 G/dL Normal 32.0-36.0 [facility] Comment on above: Performed By: #### L AC #### [address] [address] MCV (RBC) [Entitic vol] 90.7 fL Normal 80.0-99.0 [facility] Comment on above: Performed By: #### L AC #### [place] [phone] Platelet 442 10 3/mcL Normal 150-450 [facility] Comment on above: Performed By: #### L AC #### [place] [address] Platelet mean volume (Bld) [Entitic vol] 6.9 fL Normal 6.6-10.5 [facility] Comment on above: Performed By: #### L AC #### [place] [address] RBC 3.89 10 6/mcL Low 4.10-5.30 [facility] Comment on above: Performed By: #### L AC #### [place] [address] WBC 17.2 10 3/mcL High 4.5-10.8 [facility] Comment on above: Performed By: #### L AC #### [place] [address] CBC + DIFFon 11-04-2024 Baso # 0.10 x10EE3/UL Normal 0.00 - 0.10 [facility] Comment on above: Performed By: #### 2 06590 ####[facility],[address] [place] [address] Basophils/100 WBC (Bld) 0.7 % Normal 0.0 - 2.0 [facility] Comment on above: Performed By: #### 2 47293 ####[facility],[address] [place], [place] [id number] CBC + DIFF Normal [facility] Comment on above: Result Comment: CBC- COMPLETE BLOOD COUNT Performed By: #### 2 59172 ####[facility],[address] [place] [address] EO # 0.12 x10EE3/UL Normal 0.00 - 0.50 [facility] Comment on above: Performed By: #### 2 97640 ####[facility],[address] [place] [address] Eosinophils/100 WBC (Bld) 0.8 % Normal 0.0 - 7.0 [facility] Comment on above: Performed By: #### 2 79104 ####[facility],[address] [place] [address] Erythrocyte distribution width (RBC) [Ratio] 14.1 % Normal 12.0 - 15.6 [facility] Comment on above: Performed By: #### 2 00322 ####[facility],[address] [place] [address] Hematocrit (Bld) [Volume fraction] 36.4 % Normal 34.0 - 46.0 [facility] Comment on above: Performed By: #### 2 94524 ####[facility],[address] [place], [place] [phone] Hemoglobin (Bld) [Mass/Vol] 11.9 g/dL Low 12.0 - 16.0 [facility] Comment on above: Performed By: #### 2 95124 ####[facility],[address] [place] [address] Lymph # 6.40 x10EE3/UL High 0.80 - 2.80 [facility] Comment on above: Performed By: #### 2 12542 ####[facility],[address] [place] [address] Lymphocytes/100 WBC (Bld) 43.9 % Normal 20.0 - 45.0 [facility] Comment on above: Performed By: #### 2 96970 ####[facility],[address] [place] [address] MANUAL DIFF N/A Normal [facility] Comment on above: Performed By: #### 2 27610 ####[facility],[address] [place] [address] MCH (RBC) [Entitic mass] 30 pg Normal 27 - 33 [facility] Comment on above: Performed By: #### 2 26014 ####[facility],[address] [place] [address] MCHC 33 X10 3 Normal 32 - 36 [facility] Comment on above: Performed By: #### 2 42563 ####[facility],[address] [place] [address] MCV (RBC) [Entitic vol] 93 fL Normal 80 - 99 [facility] Comment on above: Performed By: #### 2 26042 ####[facility],[address] [place] [address] Refugio # 1.36 x10EE3/UL High 0.20 - 1.00 [facility] Comment on above: Performed By: #### 2 35692 ####[facility],[address] [place] [address] MONOS % 9.4 % Normal 0.0 - 10.0 [facility] Comment on above: Performed By: #### 2 87104 ####[facility],[address] [place] [address] Morphology Dandy (Bld) [Interp] N/A Normal [facility] Comment on above: Performed By: #### 2 44356 ####[facility],[address] [place], [place] [phone] Neut # 6.60 x10EE3/UL Normal 1.50 - 7.10 [facility] Comment on above: Performed By: #### 2 38826 ####[facility],[address] [place] [address] Neutrophils/100 WBC (Bld) 45.3 % Low 46.0 - 76.0 [facility] Comment on above: Performed By: #### 2 28284 ####[facility],[address] [place] [address] PLATELET 608 x10EE3/UL High 150 - 450 [facility] Comment on above: Performed By: #### 2 06121 ####[facility],[address] [place] [address] Platelet mean volume (Bld) [Entitic vol] 7.8 fL Normal 6.6 - 10.5 [facility] Comment on above: Result Comment: AUTO MATED DIFFERENTIAL Performed By: #### 2 96159 ####[facility],[address] [place] [address] RBC 3.92 x 10EE6/UL Low 4.10 - 5.30 [facility] Comment on above: Performed By: #### 2 57580 ####[facility],[address] [place] [address] WBC 14.6 x 10EE3/UL High 4.5 - 10.8 [facility] Comment on above: Performed By: #### 2 25397 ####[facility],[address] [place] [address] CHEST 1 VIEWon 11-04-2024 CHEST 1 VIEW Normal [facility] CHEST 1 VIEW (PICC/ET PLACEM ENTon 11-04-2024 CHEST 1 VIEW (PICC/ET PLACEMENT Normal [facility] CMPon 11-04-2024 Albumin Level 3.1 G/dL Low 3.2-4.8 [facility] Comment on above: Performed By: #### L AC #### [facility] [address] [place] [address] Albumin/Globulin [Mass ratio] 0.8 {ratio} Low 0.9-1.6 [facility] Comment on above: Performed By: #### L AC #### [facility] [address] [place] [address] ALP [Catalytic activity/Vol] 99 U/L Normal 38-126 [facility] Comment on above: Performed By: #### L AC #### [address] [address] ALT [Catalytic activity/Vol] 42 U/L Normal 10-49 [facility] Comment on above: Performed By: #### L AC #### [address] [address] AST [Catalytic activity/Vol] 52 U/L High 8-34 [facility] Comment on above: Performed By: #### L AC #### [place] [address] Bili Total 0.40 mg/dL Normal 0.20-1.20 [facility] Comment on above: Result Comment: Use of this assay is not recommended for patients undergoing treatment with eltrombopag due to the potential for falsely elevated results. Performed By: #### L AC #### [place] [address] BUN/Creatinine Ratio 23.0 ratio High 10.0-22.0 [facility] Comment on above: Performed By: #### L AC #### [place] [address] Calcium [Mass/Vol] 8.8 mg/dL Normal 8.7-10.4 [facility] Comment on above: Performed By: #### L AC #### [place] [address] Chloride [Moles/Vol] 100 mmol/L Normal 98-110 [facility] Comment on above: Performed By: #### L AC #### [place] [address] CO2 [Moles/Vol] 33 mmol/L High 22-32 [facility] Comment on above: Performed By: #### L AC #### [address] [address] Creatinine [Mass/Vol] 0.74 mg/dL Normal 0.50-1.20 [facility] Comment on above: Result Comment: Test ing performed on [employer] analyzer using enzymatic creatinine methodology. Performed By: #### L AC #### [place] [address] Electrolyte Balance 9.0 mEq/L Normal 4.0-15.0 [facility] Comment on above: Performed By: #### L AC #### [address] [address] Globulin 3.8 G/dL Normal 1.5-3.8 [facility] Comment on above: Performed By: #### L AC #### [address] [address] Glucose [Mass/Vol] 140 mg/dL High 82-115 [facility] Comment on above: Performed By: #### L AC #### [address] [address] Potassium [Moles/Vol] 3.0 mmol/L Low 3.5-5.0 [facility] Comment on above: Performed By: #### L AC #### [address] [address] Sodium [Moles/Vol] 142 mmol/L Normal 136-145 [facility] Comment on above: Performed By: #### L AC #### [address] [address] Total Protein 6.9 G/dL Normal 5.7-8.2 [facility] Comment on above: Performed By: #### L AC #### [address] [address] Urea nitrogen [Mass/Vol] 17.0 mg/dL Normal 8.0-22.0 [facility] Comment on above: Performed By: #### L AC #### [address] [address] CMP with eGFRon 11-04-2024 AGE 69 years Normal [facility] Comment on above: Performed By: #### 2 53753 ####[facility],[address] [place] [address] Albumin [Mass/Vol] 3.0 g/dL Low 3.4 - 5.0 [facility] Comment on above: Performed By: #### 2 91811 ####[facility],[address] [place] [address] Albumin/Globulin [Mass ratio] 0.7 {ratio} Low 0.9 - 1.6 [facility] Comment on above: Performed By: #### 2 52917 ####[facility],[address] [place] [address] ALK PHOS 99 U/L Normal 46 - 116 [facility] Comment on above: Performed By: #### 2 45881 ####[facility],[address] [place] [address] ALT [Catalytic activity/Vol] 39 U/L Normal 16 - 63 [facility] Comment on above: Performed By: #### 2 10122 ####[facility],[address] [place] [address] Anion gap [Moles/Vol] 14 mmol/L Normal 10 - 20 [facility] Comment on above: Performed By: #### 2 53256 ####[facility],[address] [place] [address] AST [Catalytic activity/Vol] 41 U/L High 13 - 39 [facility] Comment on above: Performed By: #### 2 23596 ####[facility],[address] [place] [address] B/C RATIO 12 ratio Normal 0 - 30 [facility] Comment on above: Performed By: #### 2 99469 ####[facility],[address] [place] [address] Bilirubin [Mass/Vol] 0.5 mg/dL Normal 0.2 - 1.0 [facility] Comment on above: Performed By: #### 2 28153 ####[facility],[address] [place] [address] Calcium [Mass/Vol] 8.5 mg/dL Normal 8.5 - 10.1 [facility] Comment on above: Performed By: #### 2 77482 ####[facility],[address] [place] [address] Chloride [Moles/Vol] 100 mmol/L Normal 98 - 107 [facility] Comment on above: Performed By: #### 2 50490 ####[facility],[address] [place] [address] CMP with eGFR Normal [facility] Comment on above: Result Comment: COMP REHENSIVE METABOLIC PANEL Performed By: #### 2 97380 ####[facility],[address] [place] [address] CO2 [Moles/Vol] 28.6 mmol/L Normal 21.0 - 32.0 [facility] Comment on above: Performed By: #### 2 48766 ####[facility],[address] [place] [address] Creatinine [Mass/Vol] 1.22 mg/dL High 0.55 - 1.02 [facility] Comment on above: Performed By: #### 2 30175 ####[facility],[address] [place] [address]800 eGFR 44 ML/MINUTE Low 60 - 999 [facility] Comment on above: Performed By: #### 2 74850 ####[facility],[address] [place] [address] eGFR(AA) 53 ML/MINUTE Low 60 - 999 [facility] Comment on above: Result Comment: ACCO RDING TO THE NATIONAL KIDNEY DISEASE EDUCATION PROGRAM(NKDE), A NORMAL eGFRIS A VALUE GREATER THAN OR EQUAL TO 60 ML/MIN/1.73 SQ METERS.CHRONIC KIDNEY DISEASE: <60mL/MIN/1.73 SQ METERSKIDNEY FAILURE: <15mL/MIN/1.73 SQ METERSTHIS TEST SHOULD ONLY BE USED FOR PATIENTS 18 YEARS OF AGE AND OLDER. Performed By: #### 2 87214 ####[facility],[address] [place] [address] Globulin (S) [Mass/Vol] 4.1 g/dL High 1.5 - 3.8 [facility] Comment on above: Performed By: #### 2 21125 ####[facility],[address] [place] [address] Glucose [Mass/Vol] 296 mg/dL High 74 - 106 [facility] Comment on above: Performed By: #### 2 77857 ####[facility],[address] [place] [address] Potassium [Moles/Vol] 2.6 mmol/L Critically low 3.5 - 5.1 [facility] Comment on above: Result Comment: { CA LLED TO N MCKEON 07:31 MKY{ READ BACK BY SAME Performed By: #### 2 84588 ####[facility],[address] [place] [address] Protein [Mass/Vol] 7.1 g/dL Normal 6.4 - 8.2 [facility] Comment on above: Performed By: #### 2 87119 ####[facility],[address] [place] [address] Sodium [Moles/Vol] 140 mmol/L Normal 136 - 145 [facility] Comment on above: Performed By: #### 2 25711 ####[facility],[address] [place] [address] Urea nitrogen [Mass/Vol] 15 mg/dL Normal 7 - 18 [facility] Comment on above: Performed By: #### 2 03897 ####[facility],[address] [place] [address]68 CORONAVIRUS (SARS) ANTIGEN T ESTon 11-04-2024 EXTERNAL QC DONE? YES Normal [facility] Comment on above: Performed By: #### 2 17425 ####[facility],[address] [place] [address]958 INTERNAL CONTROL PASS Normal [facility] Comment on above: Performed By: #### 2 37562 ####[facility],[address] [place] [address]772 SARS ANTIGEN Negative Normal NORMAL: NEGATIVE [facility] Comment on above: Performed By: #### 2 87364 ####[facility],[address] [place] [address]674 SEND TO ? NO Normal [facility] Comment on above: Result Comment: SARS -CoV-2THIS TEST IS BEING USED UNDER THE FDA EUA PROCEDURE. THIS ASSAY HAS BEENVALIDATED AT [facility] FOR USE WITH NASAL AND NASOPHARYNGEAL [...] BY HEALTHCARE PROVIDERS IN CONSULTATION WITH PUBLIC [facility]. Performed By: #### 2 06877 ####[facility],[address] [place], [place] [address] CT ANGIOGRAPHY CHEST W/CONTR Darling 11-04-2024 CT [...] 11/04/2024 8:33:11 PM Ordering Provider: KAYLA RYAN [facility] MAIN CT CHEST (PE PROTOCOL)on CT CHEST (PE PROTOCOL) [facility] CULTURE BLOOD [MARIA TERESA]on Microscopic examination of blood, culture CULTURE BLOOD [[place]] _[facility] CULTURE_ [facility] FOR SCANNED REPORT 11/11/[email or web address] ETE [facility] Comment on above: Performed By: #### 2 71033 ####[facility],[address] [place] [address] Microscopic examination of blood, culture CULTURE BLOOD [[place]] _BLOOD CULTURE_ [facility] FOR SCANNED REPORT 11/11/[email or web address] ETE [facility] Comment on above: Performed By: #### 2 97228 ####[facility],[address] [place] [address] CVFLURVon 11-04-2024 FLU A PCR Negative Normal Negative [facility] Comment on above: Result Comment: [place] s [id number] Performed By: #### L AC #### [facility] [address] [place] [address] FLU B PCR Negative Normal Negative [facility] Comment on above: Result Comment: Note s [id number] Performed By: #### L AC #### [facility] [address] [place] [address]62 RSV PCR Negative Normal Negative [facility] Comment on above: Result Comment: Note s [id number] Performed By: #### L AC #### [facility] [address] [place] [address]195 SARS-CoV-2 (COVID-19) RNA ALEJANDRO+probe Ql (Unsp spec) Negative Normal Negative [facility] Comment on above: Result Comment: Note s [id number] This test has been authorized by FDA [...] results. Performed By: #### L AC #### [address] [address] D-DIMER, QUANTITATIVEon 10-23 D-DIMER QUANT 1795 ng/ml High 0 - 230 [facility] Comment on above: Performed By: #### 2 11310 ####[place] [id number] D-DIMER, QUANTITATIVE Normal [facility] Comment on above: Result Comment: SILVANO T D-DIMER Performed By: #### 2 87104 ####[facility],[address] [place], [place] [phone] FEon 11-04-2024 Iron [Mass/Vol] 18 ug/dL Low 50-170 [facility] Comment on above: Performed By: #### L AC #### [place] [phone] [place] 11-04-2024 Ferritin [Mass/Vol] 88.7 ng/mL Normal 8.0-252.0 [facility] Comment on above: Performed By: #### L AC #### [place] [address] IBCon 11-04-2024 TIBC 328 mcg/dL Normal 250-500 [facility] Comment on above: Performed By: #### L AC #### [place] [address] INFLUENZA VIRUS RAPID A/Bon 11-04-2024 INFLUENZA VIRUS RAPID A/B Normal [facility] Comment on above: Performed By: #### 2 71740 ####[facility],[address] [place] [address] LABORATORYOrdered By: SYSTEM SYSTEM on 11-04-2024 Natriuretic [...] Lactic Acid Lvl 1.4 mmol/L Normal 0.5-2.2 [facility] Comment on above: Performed By: #### L AC #### [place] [id number] LACTATEon 11-04-2024 Lactate [Moles/Vol] 1.8 mmol/L Normal 0.4 - 2.0 [facility] Comment on above: Performed By: #### 2 90661 ####[facility],[address] [place] [address] 15002 Lactate [Moles/Vol] 4.6 mmol/L Critically high 0.4 - 2.0 [facility] Comment on above: Result Comment: { CA LLED TO N [facility] 0727 MKY{ READ BACK BY SAME LACTATE 3 HR NOTIFIED TO: _ENRIQUE_P 11/04/24.MKY. . . LACTATE 3 HR NOTIFIED BY: _MKY 11/04/24.MKY. . . Performed By: #### 2 35597 ####[facility],[address] [place] [address] 23354 MGon 11-04-2024 Magnesium [Mass/Vol] 1.9 mg/dL Normal 1.6-2.4 [facility] Comment on above: Performed By: #### L AC #### [place] [id number] MYCOon 11-04-2024 Mycoplasma IgM Negative Normal [facility] Comment on above: Result Comment: INTE RPRETATION OF MYCOPLASMA IgM: Negative: IgM to M. pneumoniae Absent, or at levels below the assay limit of detection. Positive: IgM to M. pneumoniae Present. Invalid: Test results are invalid due to invalid internal control. Assay was performed in duplicate. Repeat testing is suggested if clinically indicated. Performed By: #### L AC #### [address] [place] [address] NT-proBNPon 11-04-2024 Natriuretic peptide B (Bld) [Mass/Vol] 4211 pg/mL High 0 - 125 [facility] Comment on above: Performed By: #### 2 53942 ####[facility],[address] [place] [address] 21794 No Panel Informationon 11-04 Legionella Urine Ag Presumptive negative for L. pneumophila serogroup 1 antigen in urine, suggesting no recent or current infection. Legionnaire's disease cannot be ruled out since other serogroups and species may also cause disease. [facility] Streptococcus Pneumoniae Urine Antig Presumptive negative for pneumococcal pneumonia, suggesting no current or recent pneumococcal infection. Infection due to Strep pneumoniae cannot be ruled out since the antigen present in the sample may be below the detection limit of the test. [facility] Comment on above: This test has not be en evaluated on patients taking antibiotics for greater than 24 hours or on patients who have recently completed an antibiotic regimen. The accuracy of this test has not been proven in young children. Microscopic examination of blood, culture Blood Culture: No Growth at 5 days. [facility] PBNPon 11-04-2024 Natriuretic peptide B (Bld) [Mass/Vol] 7106 pg/mL High 0-900 [facility] Comment on above: Order Comment: use e xisting specimen Performed By: #### L AC #### [place] [id number] RSVon 11-04-2024 RSV Normal [facility] Comment on above: Performed By: #### 2 59356 ####[facility],[address] [place] [address] 37028 TRFon 11-04-2024 Transferrin [Mass/Vol] 278 mg/dL Normal 202-336 [facility] Comment on above: Performed By: #### L AC #### [place] [address] TROPONINon 11-04-2024 HS TROPONIN 27.6 pg/mL Normal 0.0 - 51.4 [facility] Comment on above: Performed By: #### 2 64464 ####[facility],[address] [place] [address] 09563 URINALYSISon 11-04-2024 Amorphous NONE Normal [facility] Comment on above: Performed By: #### 2 61631 ####[facility],[address] [place] [address] 30250 Bacteria TRACE Normal [facility] Comment on above: Performed By: #### 2 79205 ####[facility],[address] [place] [address] 32494 Bilirubin Ql (U) Negative Normal NORMAL: NEGATIVE [facility] Comment on above: Performed By: #### 2 16320 ####[facility],[address] [place] [address] 82730 Casts NONE Normal [facility] Comment on above: Performed By: #### 2 65974 ####[facility],[address] [place] [address] 74342 Clarity (U) clear Normal NORMAL: CLEAR [facility] Comment on above: Performed By: #### 2 16425 ####[facility],[address] [place] [address] 47108 Color (U) yellow Normal NORMAL: YELLOW [facility] Comment on above: Performed By: #### 2 96732 ####[facility],[address] [place] [address] 77892 Crystals LM Nom (Urine sed) NONE Normal [facility] Comment on above: Performed By: #### 2 44716 ####[facility],[address] [place] [address] 03943 Epi Cells NONE Normal [facility] Comment on above: Performed By: #### 2 25840 ####[facility],[address] [place] [address] 98793 Glucose Ql (U) 250 Abnormal NORMAL: NORMAL [facility] Comment on above: Performed By: #### 2 04339 ####[facility],[address] [place] [address] 00703 Hemoglobin Ql (U) 25 Abnormal NORMAL: NEGATIVE [facility] Comment on above: Performed By: #### 2 65152 ####[facility],[address] [place] [address] 54531 Ketone Negative Normal NORMAL: NEGATIVE [facility] Comment on above: Performed By: #### 2 45309 ####[facility],[address] [place] [address] 80091 Leukocytes Negative Normal NORMAL: NEGATIVE [facility] Comment on above: Performed By: #### 2 01790 ####[facility],[address] [place] [address] 29483 Mucous NONE Normal [facility] Comment on above: Performed By: #### 2 97836 ####[facility],[address] [place] [address] 87650 Nitrite Ql (U) Negative Normal NORMAL: NEGATIVE [facility] Comment on above: Performed By: #### 2 13791 ####[facility],[address] [place] [address] 91218 pH (U) 7 [pH] Normal NORMAL: 5.0-8.0 [facility] Comment on above: Performed By: #### 2 88260 ####[facility],[address] [place] [address] 14428 Protein Ql (U) 500 Abnormal NORMAL: NEGATIVE [facility] Comment on above: Performed By: #### 2 73635 ####[facility],[address] [place] [address] 80974 Rbc 5-10 Normal 0-3/hpf [facility] Comment on above: Performed By: #### 2 43435 ####[facility],[address] [place] [address] 02563 Sp [place] 1.010 Normal NORMAL: 1.010-1.030 [facility] Comment on above: Performed By: #### 2 03660 ####[facility],[address] [place] [address] Specimen Type R Normal [facility] Comment on above: Performed By: #### 2 26284 ####[facility],[address] [place], [place] [id number] Urinalysis dipstick W Reflex Microscopic panel (U) SEE BELOW Normal [facility] Comment on above: Result Comment: MICR OSCOPIC Performed By: #### 2 56856 ####[facility],[address] [place] [address] Urobilinog NORM Normal NORMAL: NORMAL [facility] Comment on above: Performed By: #### 2 19797 ####[facility],[address] [place] [address] Wbc 1-5 Normal 0-5/hpf [facility] Comment on above: Performed By: #### 2 41388 ####[facility],[address] [place], [place] [id number] Yeast NONE Normal [facility] Comment on above: Performed By: #### 2 52684 ####[facility],[address] [place] [address] 16235 URINE CULTURE [CCL]on 2024 Bacteria identified Cx Nom (U) Normal [facility] Comment on above: Performed By: #### 2 52100 ####[facility],[address] [place], [place] [id number] XR ABDOMEN APon 11-04-2024 XR ABDOMEN AP [...] 11/04/2024 12:56:39 PM Ordering Provider: KAYLA RYAN [facility] XR CHEST 1 VIEWon 11-04-2024 [...] 11/04/2024 12:56:39 PM Ordering Provider: KAYLA RYAN [facility] CBC + DIFF DAILYon 5 Baso # 0.04 x10EE3/UL Normal 0.00 - 0.10 [facility] Comment on above: Performed By: #### 2 17233 ####[facility],[address] [place], [place] [id number] Basophils/100 WBC (Bld) 0.6 % Normal 0.0 - 2.0 [facility] Comment on above: Performed By: #### 2 85391 ####[facility],[address] [place] [address] CBC + DIFF DAILY Normal [facility] Comment on above: Result Comment: CBC- COMPLETE BLOOD COUNT Performed By: #### 2 00005 ####[facility],[address] [place] [address] EO # 0.13 x10EE3/UL Normal 0.00 - 0.50 [facility] Comment on above: Performed By: #### 2 28616 ####[facility],[address] [place] [address] Eosinophils/100 WBC (Bld) 2.0 % Normal 0.0 - 7.0 [facility] Comment on above: Performed By: #### 2 30939 ####[facility],[address] [place] [address] Erythrocyte distribution width (RBC) [Ratio] 14.2 % Normal 12.0 - 15.6 [facility] Comment on above: Performed By: #### 2 91224 ####[facility],[address] [place] [address] Hematocrit (Bld) [Volume fraction] 34.4 % Normal 34.0 - 46.0 [facility] Comment on above: Performed By: #### 2 94593 ####[facility],[address] [place] [address] Hemoglobin (Bld) [Mass/Vol] 11.3 g/dL Low 12.0 - 16.0 [facility] Comment on above: Performed By: #### 2 06354 ####[facility],[address] [place] [address] Lymph # 1.74 x10EE3/UL Normal 0.80 - 2.80 [facility] Comment on above: Performed By: #### 2 05992 ####[facility],[address] [place] [address] Lymphocytes/100 WBC (Bld) 26.5 % Normal 20.0 - 45.0 [facility] Comment on above: Performed By: #### 2 28645 ####[facility],[address] [place] [address] MANUAL DIFF N/A Normal [facility] Comment on above: Performed By: #### 2 68704 ####[facility],[address] [place] [address] MCH (RBC) [Entitic mass] 30 pg Normal 27 - 33 [facility] Comment on above: Performed By: #### 2 79939 ####[facility],[address] [place] [address] MCHC 33 X10 3 Normal 32 - 36 [facility] Comment on above: Performed By: #### 2 22184 ####[facility],[address] [place] [address] MCV (RBC) [Entitic vol] 93 fL Normal 80 - 99 [facility] Comment on above: Performed By: #### 2 38981 ####[facility],[address] [place] [address] Refugio # 0.86 x10EE3/UL Normal 0.20 - 1.00 [facility] Comment on above: Performed By: #### 2 94840 ####[facility],[address] [place] [address] MONOS % 13.1 % High 0.0 - 10.0 [facility] Comment on above: Performed By: #### 2 94050 ####[facility],[address] [place], [place] [phone] Morphology Dandy (Bld) [Interp] N/A Normal [facility] Comment on above: Performed By: #### 2 39339 ####[facility],[address] [place] [address] 31210 Neut # 3.81 x10EE3/UL Normal 1.50 - 7.10 [facility] Comment on above: Performed By: #### 2 21341 ####[facility],[address] [place] [address] 97555 Neutrophils/100 WBC (Bld) 57.8 % Normal 46.0 - 76.0 [facility] Comment on above: Performed By: #### 2 59498 ####[facility],[address] [place] [address] 08162 PLATELET 308 x10EE3/UL Normal 150 - 450 [facility] Comment on above: Performed By: #### 2 33955 ####[facility],[address] [place] [address] 13787 Platelet mean volume (Bld) [Entitic vol] 7.4 fL Normal 6.6 - 10.5 [facility] Comment on above: Result Comment: AUTO MATED DIFFERENTIAL Performed By: #### 2 92335 ####[facility],[address] [place] [address] 58730 RBC 3.71 x 10EE6/UL Low 4.10 - 5.30 [facility] Comment on above: Performed By: #### 2 39364 ####[facility],[address] [place] [address] 17605 WBC 6.6 x 10EE3/UL Normal 4.5 - 10.8 [facility] Comment on above: Performed By: #### 2 72169 ####[facility],[address] [place] [address] 33021 CMP with eGFR - DAILYon -0 AGE 69 years Normal [facility] Comment on above: Performed By: #### 2 00574 ####[facility],[address] [place] [address] 48869 Albumin [Mass/Vol] 2.4 g/dL Low 3.4 - 5.0 [facility] Comment on above: Performed By: #### 2 48145 ####[facility],[address] [place] [address] 30874 Albumin/Globulin [Mass ratio] 0.7 {ratio} Low 0.9 - 1.6 [facility] Comment on above: Performed By: #### 2 00071 ####[facility],[address] [place] [address] 29400 ALK PHOS 99 U/L Normal 46 - 116 [facility] Comment on above: Performed By: #### 2 45782 ####[facility],[address] [place] [address] 43316 ALT [Catalytic activity/Vol] 51 U/L Normal 16 - 63 [facility] Comment on above: Performed By: #### 2 83733 ####[facility],[address] [place] [address] 98920 Anion gap [Moles/Vol] 9 mmol/L Low 10 - 20 [facility] Comment on above: Performed By: #### 2 02964 ####[facility],[address] [place] [address] 79603 AST [Catalytic activity/Vol] 31 U/L Normal 13 - 39 [facility] Comment on above: Performed By: #### 2 69592 ####[facility],[address] [place] [address] 72120 B/C RATIO 20 ratio Normal 0 - 30 [facility] Comment on above: Performed By: #### 2 60898 ####[facility],[address] [place] [address] 37329 Bilirubin [Mass/Vol] 0.5 mg/dL Normal 0.2 - 1.0 [facility] Comment on above: Performed By: #### 2 31219 ####[facility],[address] [place] [address] 21309 Calcium [Mass/Vol] 8.7 mg/dL Normal 8.5 - 10.1 [facility] Comment on above: Performed By: #### 2 53970 ####[facility],[address] [place] [address] 87149 Chloride [Moles/Vol] 104 mmol/L Normal 98 - 107 [facility] Comment on above: Performed By: #### 2 36551 ####[facility],[address] [place] [address] 11352 CMP with eGFR - DAILY Normal [facility] Comment on above: Result Comment: COMP REHENSIVE METABOLIC PANEL Performed By: #### 2 72743 ####[facility],[address] [place] [address] 49328 CO2 [Moles/Vol] 31.4 mmol/L Normal 21.0 - 32.0 [facility] Comment on above: Performed By: #### 2 16968 ####[facility],[address] [place], [place] [phone] Creatinine [Mass/Vol] 0.82 mg/dL Normal 0.55 - 1.02 [facility] Comment on above: Performed By: #### 2 08145 ####[facility],[address] [place], [place] [phone] GFR/1.73 sq M.predicted among non-blacks MDRD (S/P/Bld) [Vol rate/Area] mL/min/{1.73_m2} Normal 60 - 999 [facility] Comment on above: Performed By: #### 2 05864 ####[facility],[address] [place], [place] [phone] Result Comment: ACCO RDING TO THE NATIONAL KIDNEY DISEASE EDUCATION PROGRAM(NKDE), A NORMAL eGFRIS A VALUE GREATER THAN OR EQUAL TO 60 ML/MIN/1.73 SQ METERS.CHRONIC KIDNEY DISEASE: <60mL/MIN/1.73 SQ METERSKIDNEY FAILURE: <15mL/MIN/1.73 SQ METERS Globulin (S) [Mass/Vol] 3.6 g/dL Normal 1.5 - 3.8 [facility] Comment on above: Performed By: #### 2 30348 ####[facility],[address] [place] [address] 57288 Glucose [Mass/Vol] 121 mg/dL High 74 - 106 [facility] Comment on above: Performed By: #### 2 48329 ####[facility],[address] [place] [address] 51594 Potassium [Moles/Vol] 3.4 mmol/L Low 3.5 - 5.1 [facility] Comment on above: Performed By: #### 2 34659 ####[facility],[address] [place] [address] 39807 Protein [Mass/Vol] 6.0 g/dL Low 6.4 - 8.2 [facility] Comment on above: Performed By: #### 2 94744 ####[facility],[address] [place] [address] 03870 Sodium [Moles/Vol] 141 mmol/L Normal 136 - 145 [facility] Comment on above: Performed By: #### 2 41560 ####[facility],[address] [place] [address] 08840 Urea nitrogen [Mass/Vol] 16 mg/dL Normal 7 - 18 [facility] Comment on above: Performed By: #### 2 38317 ####[facility],[address] [place] [address] 36192 CBC + DIFF DAILYon 4 Baso # 0.05 x10EE3/UL Normal 0.00 - 0.10 [facility] Comment on above: Performed By: #### 2 67254 ####[facility],[address] [place] [address] 12214 Basophils/100 WBC (Bld) 0.7 % Normal 0.0 - 2.0 [facility] Comment on above: Performed By: #### 2 42292 ####[facility],[address] [place] [address] 20485 CBC + DIFF DAILY Normal [facility] Comment on above: Result Comment: CBC- COMPLETE BLOOD COUNT Performed By: #### 2 52723 ####[place] [address] EO # 0.07 x10EE3/UL Normal 0.00 - 0.50 [facility] Comment on above: Performed By: #### 2 34011 ####[place] [address] Eosinophils/100 WBC (Bld) 1.1 % Normal 0.0 - 7.0 [facility] Comment on above: Performed By: #### 2 65974 ####[place] [address] Erythrocyte distribution width (RBC) [Ratio] 14.0 % Normal 12.0 - 15.6 [facility] Comment on above: Performed By: #### 2 38409 ####[place] [address] Hematocrit (Bld) [Volume fraction] 32.5 % Low 34.0 - 46.0 [facility] Comment on above: Performed By: #### 2 58668 ####[place] [address] Hemoglobin (Bld) [Mass/Vol] 10.8 g/dL Low 12.0 - 16.0 [facility] Comment on above: Performed By: #### 2 09175 ####[place] [address] Lymph # 1.69 x10EE3/UL Normal 0.80 - 2.80 [facility] Comment on above: Performed By: #### 2 08045 ####[place] [address] Lymphocytes/100 WBC (Bld) 25.1 % Normal 20.0 - 45.0 [facility] Comment on above: Performed By: #### 2 49936 ####[facility],[address] [place] [address] MANUAL DIFF N/A Normal [facility] Comment on above: Performed By: #### 2 06725 ####[facility],[address] [place] [address] MCH (RBC) [Entitic mass] 31 pg Normal 27 - 33 [facility] Comment on above: Performed By: #### 2 10656 ####[facility],[address] [place] [address] MCHC 33 X10 3 Normal 32 - 36 [facility] Comment on above: Performed By: #### 2 51173 ####[place] [address] MCV (RBC) [Entitic vol] 92 fL Normal 80 - 99 [facility] Comment on above: Performed By: #### 2 64609 ####[facility],[address] [place] [address] Refugio # 0.93 x10EE3/UL Normal 0.20 - 1.00 [facility] Comment on above: Performed By: #### 2 62831 ####[facility],[address] [place] [address] MONOS % 13.8 % High 0.0 - 10.0 [facility] Comment on above: Performed By: #### 2 18177 ####[facility],[address] [place] [address] Morphology Dandy (Bld) [Interp] N/A Normal [facility] Comment on above: Performed By: #### 2 26063 ####[place] [address] Neut # 3.99 x10EE3/UL Normal 1.50 - 7.10 [facility] Comment on above: Performed By: #### 2 92385 ####[place] [address] Neutrophils/100 WBC (Bld) 59.3 % Normal 46.0 - 76.0 [facility] Comment on above: Performed By: #### 2 47750 ####[facility],[address] [place] [address] 14206 PLATELET 303 x10EE3/UL Normal 150 - 450 [facility] Comment on above: Performed By: #### 2 11127 ####[facility],[address] [place] [address] 12425 Platelet mean volume (Bld) [Entitic vol] 7.6 fL Normal 6.6 - 10.5 [facility] Comment on above: Result Comment: AUTO MATED DIFFERENTIAL Performed By: #### 2 22632 ####[facility],[address] [place] [address] 09520 RBC 3.54 x 10EE6/UL Low 4.10 - 5.30 [facility] Comment on above: Performed By: #### 2 34086 ####[facility],[address] [place] [address] 26034 WBC 6.7 x 10EE3/UL Normal 4.5 - 10.8 [facility] Comment on above: Performed By: #### 2 77290 ####[facility],[address] [place] [address] 22234 CMP with eGFR - DAILYon 09-24 AGE 69 years Normal [facility] Comment on above: Performed By: #### 2 89890 ####[facility],[address] [place] [address] 37598 Albumin [Mass/Vol] 2.5 g/dL Low 3.4 - 5.0 [facility] Comment on above: Performed By: #### 2 65663 ####[facility],[address] [place] [address] 22304 Albumin/Globulin [Mass ratio] 0.7 {ratio} Low 0.9 - 1.6 [facility] Comment on above: Performed By: #### 2 46379 ####[facility],[address] [place] [address] 33293 ALK PHOS 103 U/L Normal 46 - 116 [facility] Comment on above: Performed By: #### 2 03228 ####[facility],[address] [place] [address] 59973 ALT [Catalytic activity/Vol] 58 U/L Normal 16 - 63 [facility] Comment on above: Performed By: #### 2 53291 ####[facility],[address] [place] [address] 35863 Anion gap [Moles/Vol] 13 mmol/L Normal 10 - 20 [facility] Comment on above: Performed By: #### 2 77082 ####[facility],[address] [place] [address] 51363 AST [Catalytic activity/Vol] 34 U/L Normal 13 - 39 [facility] Comment on above: Performed By: #### 2 46863 ####[facility],[address] [place] [address] 65995 B/C RATIO 18 ratio Normal 0 - 30 [facility] Comment on above: Performed By: #### 2 80113 ####[facility],[address] [place] [address] 21541 Bilirubin [Mass/Vol] 0.6 mg/dL Normal 0.2 - 1.0 [facility] Comment on above: Performed By: #### 2 28598 ####[facility],[address] [place] [address] 83750 Calcium [Mass/Vol] 8.6 mg/dL Normal 8.5 - 10.1 [facility] Comment on above: Performed By: #### 2 36249 ####[facility],[address] [place] [address] 22724 Chloride [Moles/Vol] 103 mmol/L Normal 98 - 107 [facility] Comment on above: Performed By: #### 2 47878 ####[facility],[address] [place], [place] [id number] CMP with eGFR - DAILY Normal [facility] Comment on above: Result Comment: COMP REHENSIVE METABOLIC PANEL Performed By: #### 2 16804 ####[facility],[address] [place], [place] [id number] CO2 [Moles/Vol] 27.4 mmol/L Normal 21.0 - 32.0 [facility] Comment on above: Performed By: #### 2 35222 ####[facility],[address] [place] [address] Creatinine [Mass/Vol] 0.84 mg/dL Normal 0.55 - 1.02 [facility] Comment on above: Performed By: #### 2 58395 ####[facility],[address] [place] [address] GFR/1.73 sq M.predicted among non-blacks MDRD (S/P/Bld) [Vol rate/Area] mL/min/{1.73_m2} Normal 60 - 999 [facility] Comment on above: Performed By: #### 2 60014 ####[facility],[address] [place] [address] Result Comment: ACCO RDING TO THE NATIONAL KIDNEY DISEASE EDUCATION PROGRAM(NKDE), A NORMAL eGFRIS A VALUE GREATER THAN OR EQUAL TO 60 ML/MIN/1.73 SQ METERS.CHRONIC KIDNEY DISEASE: <60mL/MIN/1.73 SQ METERSKIDNEY FAILURE: <15mL/MIN/1.73 SQ METERS Globulin (S) [Mass/Vol] 3.4 g/dL Normal 1.5 - 3.8 [facility] Comment on above: Performed By: #### 2 56339 ####[facility],[address] [place], [place] [id number] Glucose [Mass/Vol] 93 mg/dL Normal 74 - 106 [facility] Comment on above: Performed By: #### 2 79545 ####[facility],[address] [place], [place] [id number] Potassium [Moles/Vol] 2.9 mmol/L Critically low 3.5 - 5.1 [facility] Comment on above: Result Comment: { CA LLED TO MED SURG AT 0738{ READ BACK BY KS TO CWB Performed By: #### 2 29214 ####[facility],[address] [place] [address] Protein [Mass/Vol] 5.9 g/dL Low 6.4 - 8.2 [facility] Comment on above: Performed By: #### 2 45591 ####[facility],[address] [place] [address] Sodium [Moles/Vol] 140 mmol/L Normal 136 - 145 [facility] Comment on above: Performed By: #### 2 51782 ####[place] [address] Urea nitrogen [Mass/Vol] 15 mg/dL Normal 7 - 18 [facility] Comment on above: Performed By: #### 2 18544 ####[facility],[address] [place] [address] CV ECHO COMPLETEon CV ECHO COMPLETE Normal [facility] CBC + DIFFon 10-21-2024 Baso # 0.02 x10EE3/UL Normal 0.00 - 0.10 [facility] Comment on above: Performed By: #### 2 75034 ####[facility],[address] [place], [place] [phone] Basophils/100 WBC (Bld) 0.3 % Normal 0.0 - 2.0 [facility] Comment on above: Performed By: #### 2 73281 ####[place] [address] CBC + DIFF Normal [facility] Comment on above: Result Comment: CBC- COMPLETE BLOOD COUNT Performed By: #### 2 75049 ####[facility],[address] [place] [address] EO # 0.09 x10EE3/UL Normal 0.00 - 0.50 [facility] Comment on above: Performed By: #### 2 25652 ####[facility],[address] [place] [address] 74088 Eosinophils/100 WBC (Bld) 1.3 % Normal 0.0 - 7.0 [facility] Comment on above: Performed By: #### 2 24443 ####[facility],[address] [place] [address] Erythrocyte distribution width (RBC) [Ratio] 14.3 % Normal 12.0 - 15.6 [facility] Comment on above: Performed By: #### 2 26271 ####[facility],[address] [place] [address] Hematocrit (Bld) [Volume fraction] 32.6 % Low 34.0 - 46.0 [facility] Comment on above: Performed By: #### 2 54592 ####[facility],[address] [place] [address] Hemoglobin (Bld) [Mass/Vol] 10.9 g/dL Low 12.0 - 16.0 [facility] Comment on above: Performed By: #### 2 42925 ####[facility],[address] [place] [address] 62547 Lymph # 1.38 x10EE3/UL Normal 0.80 - 2.80 [facility] Comment on above: Performed By: #### 2 98966 ####[facility],[address] [place] [address] 59297 Lymphocytes/100 WBC (Bld) 19.4 % Low 20.0 - 45.0 [facility] Comment on above: Performed By: #### 2 18487 ####[facility],[address] [place], [place] [phone] MANUAL DIFF N/A Normal [facility] Comment on above: Performed By: #### 2 99045 ####[facility],[address] [place] [address] MCH (RBC) [Entitic mass] 31 pg Normal 27 - 33 [facility] Comment on above: Performed By: #### 2 60127 ####[facility],[address] [place] [address] MCHC 34 X10 3 Normal 32 - 36 [facility] Comment on above: Performed By: #### 2 13353 ####[facility],[address] [place] [address] MCV (RBC) [Entitic vol] 92 fL Normal 80 - 99 [facility] Comment on above: Performed By: #### 2 27353 ####[facility],[address] [place] [address] Refugio # 0.76 x10EE3/UL Normal 0.20 - 1.00 [facility] Comment on above: Performed By: #### 2 51011 ####[facility],[address] [place] [address] MONOS % 10.7 % High 0.0 - 10.0 [facility] Comment on above: Performed By: #### 2 14275 ####[facility],[address] [place] [address] Morphology Dandy (Bld) [Interp] N/A Normal [facility] Comment on above: Performed By: #### 2 94946 ####[facility],[address] [place] [address] Neut # 4.87 x10EE3/UL Normal 1.50 - 7.10 [facility] Comment on above: Performed By: #### 2 94367 ####[facility],[address] [place] [address] Neutrophils/100 WBC (Bld) 68.4 % Normal 46.0 - 76.0 [facility] Comment on above: Performed By: #### 2 61117 ####[facility],[address] [place] [address] 68758 PLATELET 301 x10EE3/UL Normal 150 - 450 [facility] Comment on above: Performed By: #### 2 45803 ####[facility],[address] [place] [address] 76069 Platelet mean volume (Bld) [Entitic vol] 7.2 fL Normal 6.6 - 10.5 [facility] Comment on above: Result Comment: AUTO MATED DIFFERENTIAL Performed By: #### 2 64532 ####[facility],[address] [place] [address] 70795 RBC 3.56 x 10EE6/UL Low 4.10 - 5.30 [facility] Comment on above: Performed By: #### 2 36985 ####[facility],[address] [place] [address] 14198 WBC 7.1 x 10EE3/UL Normal 4.5 - 10.8 [facility] Comment on above: Performed By: #### 2 07717 ####[facility],[address] [place] [address] 13913 CHEST 1 VIEWon 10-21-2024 CHEST 1 VIEW Normal [facility] CMP with eGFRon 10-21-2024 AGE 69 years Normal [facility] Comment on above: Performed By: #### 2 96503 ####[facility],[address] [place] [address] 44477 Albumin [Mass/Vol] 2.7 g/dL Low 3.4 - 5.0 [facility] Comment on above: Performed By: #### 2 99939 ####[facility],[address] [place] [address] 75458 Albumin/Globulin [Mass ratio] 0.8 {ratio} Low 0.9 - 1.6 [facility] Comment on above: Performed By: #### 2 32444 ####[facility],[address] [place] [address] 99606 ALK PHOS 111 U/L Normal 46 - 116 [facility] Comment on above: Performed By: #### 2 17607 ####[facility],[address] [place] [address] 25008 ALT [Catalytic activity/Vol] 65 U/L High 16 - 63 [facility] Comment on above: Performed By: #### 2 03025 ####[facility],[address] [place] [address] Anion gap [Moles/Vol] 14 mmol/L Normal 10 - 20 [facility] Comment on above: Performed By: #### 2 41186 ####[facility],[address] [place] [address] AST [Catalytic activity/Vol] 38 U/L Normal 13 - 39 [facility] Comment on above: Performed By: #### 2 28888 ####[facility],[address] [place] [address] B/C RATIO 15 ratio Normal 0 - 30 [facility] Comment on above: Performed By: #### 2 49791 ####[facility],[address] [place] [address] 45928 Bilirubin [Mass/Vol] 0.7 mg/dL Normal 0.2 - 1.0 [facility] Comment on above: Performed By: #### 2 19223 ####[facility],[address] [place] [address] 07136 Calcium [Mass/Vol] 8.5 mg/dL Normal 8.5 - 10.1 [facility] Comment on above: Performed By: #### 2 47005 ####[facility],[address] [place] [address] 99366 Chloride [Moles/Vol] 104 mmol/L Normal 98 - 107 [facility] Comment on above: Performed By: #### 2 72165 ####[facility],[address] [place] [address] 38864 CMP with eGFR Normal [facility] Comment on above: Result Comment: COMP REHENSIVE METABOLIC PANEL Performed By: #### 2 16423 ####[facility],[address] [place] [address] 90630 CO2 [Moles/Vol] 27.0 mmol/L Normal 21.0 - 32.0 [facility] Comment on above: Performed By: #### 2 08229 ####[facility],[address] [place] [address] 35640 Creatinine [Mass/Vol] 0.78 mg/dL Normal 0.55 - 1.02 [facility] Comment on above: Performed By: #### 2 58838 ####[facility],[address] [place] [address] GFR/1.73 sq M.predicted among non-blacks MDRD (S/P/Bld) [Vol rate/Area] mL/min/{1.73_m2} Normal 60 - 999 [facility] Comment on above: Performed By: #### 2 77461 ####[facility],[address] [place], [place] [phone] Result Comment: ACCO RDING TO THE NATIONAL KIDNEY DISEASE EDUCATION PROGRAM(NKDE), A NORMAL eGFRIS A VALUE GREATER THAN OR EQUAL TO 60 ML/MIN/1.73 SQ METERS.CHRONIC KIDNEY DISEASE: <60mL/MIN/1.73 SQ METERSKIDNEY FAILURE: <15mL/MIN/1.73 SQ METERSTHIS TEST SHOULD ONLY BE USED FOR PATIENTS 18 YEARS OF AGE AND OLDER. Globulin (S) [Mass/Vol] 3.5 g/dL Normal 1.5 - 3.8 [facility] Comment on above: Performed By: #### 2 24926 ####[facility],[address] [place] [address] 01990 Glucose [Mass/Vol] 92 mg/dL Normal 74 - 106 [facility] Comment on above: Performed By: #### 2 76564 ####[facility],[address] [place] [address] 50850 Potassium [Moles/Vol] 3.5 mmol/L Normal 3.5 - 5.1 [facility] Comment on above: Performed By: #### 2 10929 ####[facility],[address] [place] [address] 64102 Protein [Mass/Vol] 6.2 g/dL Low 6.4 - 8.2 [facility] Comment on above: Performed By: #### 2 94873 ####[facility],[address] [place] [address] Sodium [Moles/Vol] 141 mmol/L Normal 136 - 145 [facility] Comment on above: Performed By: #### 2 81972 ####[facility],[address] [place] [address] Urea nitrogen [Mass/Vol] 12 mg/dL Normal 7 - 18 [facility] Comment on above: Performed By: #### 2 40177 ####[facility],[address] [place], [place] [phone] CORONAVIRUS (SARS) ANTIGEN T ESTon 10-21-2024 EXTERNAL QC DONE? YES Normal [facility] Comment on above: Performed By: #### 2 58618 ####[facility],[address] [place] [address] INTERNAL CONTROL PASS Normal [facility] Comment on above: Performed By: #### 2 49500 ####[facility],[address] [place], [place] [phone] SARS ANTIGEN Negative Normal NORMAL: NEGATIVE [facility] Comment on above: Performed By: #### 2 43791 ####[facility],[address] [place] [address] 26284 SEND TO ? NO Normal [facility] Comment on above: Result Comment: SARS -CoV-2THIS TEST IS BEING USED UNDER THE FDA EUA PROCEDURE. THIS ASSAY HAS BEENVALIDATED AT [facility] FOR USE WITH NASAL AND NASOPHARYNGEAL [...] BY HEALTHCARE PROVIDERS IN CONSULTATION WITH PUBLIC [facility]. Performed By: #### 2 60649 ####[facility],[address] [place], [place] [phone] ED MED ADMINISTRATION DETAIL on 10-21-2024 ED MED ADMINISTRATION DETAIL Normal [facility] ED NURSES CLINICAL NOTEon ED NURSES CLINICAL NOTE Normal [facility] ED ORDER SHEET (CPOE ONLY)on 10-21-2024 ED ORDER SHEET (CPOE ONLY) Normal [facility] ED PHYSICIAN CLINICAL REPORT on 10-21-2024 ED PHYSICIAN CLINICAL REPORT Normal [facility] ED PHYSICIAN DISCHARGE REPOR Ton 10-21-2024 ED PHYSICIAN DISCHARGE REPORT Normal [facility] ED SUPER BILLon 10-21-2024 ED SUPER BILL Normal [facility] ED VISIT SUMMARYon 4 ED VISIT SUMMARY Normal [facility] ED VITALS FLOW SHEETon 10-21 ED VITALS FLOW SHEET Normal [facility] INFLUENZA VIRUS RAPID A/Bon 10-21-2024 INFLUENZA VIRUS RAPID A/B Normal [facility] Comment on above: Performed By: #### 2 97373 ####[facility],[address] [place] [address] NT-proBNPon 10-21-2024 Natriuretic peptide B (Bld) [Mass/Vol] 3719 pg/mL High 0 - 125 [facility] Comment on above: Performed By: #### 2 86974 ####[facility],[address] [place], [place] [phone] TROPONINon 10-21-2024 HS TROPONIN 20.1 pg/mL Normal 0.0 - 51.4 [facility] Comment on above: Performed By: #### 2 91934 ####[facility],[address] [place], [place] [phone] ED MED ADMINISTRATION DETAIL on 10-10-2024 ED MED ADMINISTRATION DETAIL Normal [facility] ED NURSES CLINICAL NOTEon ED NURSES CLINICAL NOTE Normal [facility] ED ORDER SHEET (CPOE ONLY)on 10-10-2024 ED ORDER SHEET (CPOE ONLY) Normal [facility] ED PHYSICIAN CLINICAL REPORT on 10-10-2024 ED PHYSICIAN CLINICAL REPORT Normal [facility] ED PHYSICIAN DISCHARGE REPOR Ton 10-10-2024 ED PHYSICIAN DISCHARGE REPORT Normal [facility] ED SUPER BILLon 10-10-2024 ED SUPER BILL Normal [facility] ED VISIT SUMMARYon 4 ED VISIT SUMMARY Normal [facility] ED VITALS FLOW SHEETon 10-10 ED VITALS FLOW SHEET Normal [facility] CT BRAIN W/O CONTRASTon 12-1 8-2024 CT BRAIN W/O CONTRAST Normal [facility] CT CERVICAL W/O CONTRASTon 1 12-10-2023 CT CERVICAL W/O CONTRAST Normal [facility] CT FACIAL BONES W/O CONTRAST on 10-09-2024 CT FACIAL BONES W/O CONTRAST Normal [facility] BMP with eGFRon 10-06-2024 AGE 69 years Normal [facility] Comment on above: Performed By: #### 2 58165 ####[facility],[address] [place] [address] Anion gap [Moles/Vol] 13 mmol/L Normal 10 - 20 [facility] Comment on above: Performed By: #### 2 93592 ####[facility],[address] [place], [place] [phone] BMP with eGFR Normal [facility] Comment on above: Result Comment: BASI C METABOLIC PANEL Performed By: #### 2 08334 ####[facility],[address] [place], [place] [phone] Calcium [Mass/Vol] 8.5 mg/dL Normal 8.5 - 10.1 [facility] Comment on above: Performed By: #### 2 94016 ####[facility],[address] [place], [place] [phone] Chloride [Moles/Vol] 101 mmol/L Normal 98 - 107 [facility] Comment on above: Performed By: #### 2 46987 ####[facility],[address] [place] [address] 78288 CO2 [Moles/Vol] 27.0 mmol/L Normal 21.0 - 32.0 [facility] Comment on above: Performed By: #### 2 98921 ####[facility],[address] [place] [address] 36062 Creatinine [Mass/Vol] 1.11 mg/dL High 0.55 - 1.02 [facility] Comment on above: Performed By: #### 2 10848 ####[facility],[address] [place] [address] 66163 eGFR 49 ML/MINUTE Low 60 - 999 [facility] Comment on above: Performed By: #### 2 89399 ####[facility],[address] [place] [address] 54113 eGFR(AA) 59 ML/MINUTE Low 60 - 999 [facility] Comment on above: Result Comment: ACCO RDING TO THE NATIONAL KIDNEY DISEASE EDUCATION PROGRAM(NKDE), A NORMAL eGFRIS A VALUE GREATER THAN OR EQUAL TO 60 ML/MIN/1.73 SQ METERS.CHRONIC KIDNEY DISEASE: <60mL/MIN/1.73 SQ METERSKIDNEY FAILURE: <15mL/MIN/1.73 SQ METERSTHIS TEST SHOULD ONLY BE USED FOR PATIENTS 18 YEARS OF AGE AND OLDER. Performed By: #### 2 14682 ####[facility],[address] [place] [address] 17573 Glucose [Mass/Vol] 197 mg/dL High 74 - 106 [facility] Comment on above: Performed By: #### 2 39449 ####[facility],[address] [place] [address] 89056 Potassium [Moles/Vol] 3.7 mmol/L Normal 3.5 - 5.1 [facility] Comment on above: Performed By: #### 2 30864 ####[facility],[address] [place] [address] 23819 Sodium [Moles/Vol] 137 mmol/L Normal 136 - 145 [facility] Comment on above: Performed By: #### 2 70537 ####[facility],[address] [place] [address] 95297 Urea nitrogen [Mass/Vol] 39 mg/dL High 7 - 18 [facility] Comment on above: Performed By: #### 2 57750 ####[facility],[address] [place] [address] 02876 C-REACTIVE PROTEINon 12-14-2 024 CRP [Mass/Vol] mg/L Normal 0.00 - 0.90 [facility] Comment on above: Performed By: #### 2 58033 ####[facility],[address] [place] [address] CBC + DIFFon 10-05-2024 Baso # 0.02 x10EE3/UL Normal 0.00 - 0.10 [facility] Comment on above: Performed By: #### 2 74812 ####[facility],[address] [place] [address] Basophils/100 WBC (Bld) 0.2 % Normal 0.0 - 2.0 [facility] Comment on above: Performed By: #### 2 82453 ####[facility],[address] [place] [address] CBC + DIFF Normal [facility] Comment on above: Result Comment: CBC- COMPLETE BLOOD COUNT Performed By: #### 2 14455 ####[facility],[address] [place] [address] EO # 0.04 x10EE3/UL Normal 0.00 - 0.50 [facility] Comment on above: Performed By: #### 2 59979 ####[facility],[address] [place] [address] Eosinophils/100 WBC (Bld) 0.3 % Normal 0.0 - 7.0 [facility] Comment on above: Performed By: #### 2 92738 ####[facility],[address] [place] [address] Erythrocyte distribution width (RBC) [Ratio] 14.3 % Normal 12.0 - 15.6 [facility] Comment on above: Performed By: #### 2 59739 ####[facility],[address] [place] [address] Hematocrit (Bld) [Volume fraction] 37.0 % Normal 34.0 - 46.0 [facility] Comment on above: Performed By: #### 2 44576 ####[facility],[address] [place] [address] Hemoglobin (Bld) [Mass/Vol] 12.0 g/dL Normal 12.0 - 16.0 [facility] Comment on above: Performed By: #### 2 90223 ####[facility],[address] [place] [address] Lymph # 0.94 x10EE3/UL Normal 0.80 - 2.80 [facility] Comment on above: Performed By: #### 2 12171 ####[facility],[address] [place] [address] Lymphocytes/100 WBC (Bld) 8.5 % Low 20.0 - 45.0 [facility] Comment on above: Performed By: #### 2 50234 ####[facility],[address] [place] [address] MANUAL DIFF N/A Normal [facility] Comment on above: Performed By: #### 2 44723 ####[facility],[address] [place], [place] [phone] MCH (RBC) [Entitic mass] 30 pg Normal 27 - 33 [facility] Comment on above: Performed By: #### 2 65212 ####[facility],[address] [place], [place] [phone] MCHC 33 X10 3 Normal 32 - 36 [facility] Comment on above: Performed By: #### 2 63502 ####[facility],[address] [place], [place] [phone] MCV (RBC) [Entitic vol] 92 fL Normal 80 - 99 [facility] Comment on above: Performed By: #### 2 83191 ####[facility],[address] [place] [address] Refugio # 0.33 x10EE3/UL Normal 0.20 - 1.00 [facility] Comment on above: Performed By: #### 2 97418 ####[facility],[address] [place] [address] 89524 MONOS % 3.0 % Normal 0.0 - 10.0 [facility] Comment on above: Performed By: #### 2 89502 ####[facility],[address] [place] [address] 45198 Morphology Dandy (Bld) [Interp] N/A Normal [facility] Comment on above: Performed By: #### 2 20557 ####[facility] [facility],[address] [place] [address] 34582 Neut # 9.76 x10EE3/UL High 1.50 - 7.10 [facility] Comment on above: Performed By: #### 2 06992 ####[facility],[address] [place] [address] 33486 Neutrophils/100 WBC (Bld) 88.0 % High 46.0 - 76.0 [facility] Comment on above: Performed By: #### 2 12685 ####[facility],[address] [place] [address] 64299 PLATELET 402 x10EE3/UL Normal 150 - 450 [facility] Comment on above: Performed By: #### 2 75657 ####[facility],[address] [place] [address] 10982 Platelet mean volume (Bld) [Entitic vol] 7.2 fL Normal 6.6 - 10.5 [facility] Comment on above: Result Comment: AUTO MATED DIFFERENTIAL Performed By: #### 2 24877 ####[facility],[address] [place] [address] 08533 RBC 4.00 x 10EE6/UL Low 4.10 - 5.30 [facility] Comment on above: Performed By: #### 2 06204 ####[facility],[address] [place] [address] 28017 WBC 11.1 x 10EE3/UL High 4.5 - 10.8 [facility] Comment on above: Performed By: #### 2 41985 ####[facility],[address] [place] [address] 48238 CHEST 1 VIEWon 10-05-2024 CHEST 1 VIEW Normal [facility] CMP with eGFRon 10-05-2024 AGE 69 years Normal [facility] Comment on above: Performed By: #### 2 08295 ####[facility],[address] [place] [address] 92102 Albumin [Mass/Vol] 2.4 g/dL Low 3.4 - 5.0 [facility] Comment on above: Performed By: #### 2 27627 ####[facility],[address] [place] [address] 16930 Albumin/Globulin [Mass ratio] 0.7 {ratio} Low 0.9 - 1.6 [facility] Comment on above: Performed By: #### 2 80059 ####[facility],[address] [place] [address] 36002 ALK PHOS 80 U/L Normal 46 - 116 [facility] Comment on above: Performed By: #### 2 16097 ####[facility],[address] [place] [address] 39754 ALT [Catalytic activity/Vol] 44 U/L Normal 16 - 63 [facility] Comment on above: Performed By: #### 2 66983 ####[facility],[address] [place] [address] 29771 Anion gap [Moles/Vol] 10 mmol/L Normal 10 - 20 [facility] Comment on above: Performed By: #### 2 37115 ####[facility],[address] [place] [address] 57308 AST [Catalytic activity/Vol] 38 U/L Normal 13 - 39 [facility] Comment on above: Performed By: #### 2 33839 ####[facility],[address] [place] [address] 62291 B/C RATIO 29 ratio Normal 0 - 30 [facility] Comment on above: Performed By: #### 2 69136 ####[facility],[address] [place] [address] 16189 Bilirubin [Mass/Vol] 0.3 mg/dL Normal 0.2 - 1.0 [facility] Comment on above: Performed By: #### 2 80049 ####[facility],[address] [place] [address] Calcium [Mass/Vol] 8.4 mg/dL Low 8.5 - 10.1 [facility] Comment on above: Performed By: #### 2 89266 ####[facility],[address] [place] [address] Chloride [Moles/Vol] 102 mmol/L Normal 98 - 107 [facility] Comment on above: Performed By: #### 2 71182 ####[facility],[address] [place] [address] CMP with eGFR Normal [facility] Comment on above: Result Comment: COMP REHENSIVE METABOLIC PANEL Performed By: #### 2 08848 ####[facility],[address] [place] [address] CO2 [Moles/Vol] 29.0 mmol/L Normal 21.0 - 32.0 [facility] Comment on above: Performed By: #### 2 30905 ####[facility],[address] [place], [place] [id number] Creatinine [Mass/Vol] 1.22 mg/dL High 0.55 - 1.02 [facility] Comment on above: Performed By: #### 2 91584 ####[facility],[address] [place] [address] 85063 eGFR 44 ML/MINUTE Low 60 - 999 [facility] Comment on above: Performed By: #### 2 14742 ####[facility],[address],[place] [address] eGFR(AA) 53 ML/MINUTE Low 60 - 999 [facility] Comment on above: Result Comment: ACCO RDING TO THE NATIONAL KIDNEY DISEASE EDUCATION PROGRAM(NKDE), A NORMAL eGFRIS A VALUE GREATER THAN OR EQUAL TO 60 ML/MIN/1.73 SQ METERS.CHRONIC KIDNEY DISEASE: <60mL/MIN/1.73 SQ METERSKIDNEY FAILURE: <15mL/MIN/1.73 SQ METERSTHIS TEST SHOULD ONLY BE USED FOR PATIENTS 18 YEARS OF AGE AND OLDER. Performed By: #### 2 40178 ####[facility],[address] [place] [address] 10044 Globulin (S) [Mass/Vol] 3.5 g/dL Normal 1.5 - 3.8 [facility] Comment on above: Performed By: #### 2 41685 ####[facility],[address] [place] [address] 94401 Glucose [Mass/Vol] 154 mg/dL High 74 - 106 [facility] Comment on above: Performed By: #### 2 43491 ####[facility],[address] [place] [address] 30211 Potassium [Moles/Vol] 3.7 mmol/L Normal 3.5 - 5.1 [facility] Comment on above: Performed By: #### 2 85615 ####[facility],[address] [place] [address] 96119 Protein [Mass/Vol] 5.9 g/dL Low 6.4 - 8.2 [facility] Comment on above: Performed By: #### 2 32211 ####[facility],[address] [place] [address] 55378 Sodium [Moles/Vol] 137 mmol/L Normal 136 - 145 [facility] Comment on above: Performed By: #### 2 60813 ####[facility],[address] [place] [address] 75150 Urea nitrogen [Mass/Vol] 35 mg/dL High 7 - 18 [facility] Comment on above: Performed By: #### 2 87674 ####[facility],[address] [place] [address] 20734 BMP with eGFRon 10-04-2024 AGE 69 years Normal [facility] Comment on above: Performed By: #### 2 64138 ####[facility],[address] [place] [address] 65872 Anion gap [Moles/Vol] 9 mmol/L Low 10 - 20 [facility] Comment on above: Performed By: #### 2 50046 ####[facility],[address] [place] [address] 41919 BMP with eGFR Normal [facility] Comment on above: Result Comment: BASI C METABOLIC PANEL Performed By: #### 2 02784 ####[facility],[address] [place] [address] 22674 Calcium [Mass/Vol] 8.3 mg/dL Low 8.5 - 10.1 [facility] Comment on above: Performed By: #### 2 90892 ####[facility],[address] [place] [address] 13925 Chloride [Moles/Vol] 99 mmol/L Normal 98 - 107 [facility] Comment on above: Performed By: #### 2 08361 ####[facility],[address] [place] [address] 38631 CO2 [Moles/Vol] 32.2 mmol/L High 21.0 - 32.0 [facility] Comment on above: Performed By: #### 2 71772 ####[facility],[address] [place] [address] 98841 Creatinine [Mass/Vol] 0.97 mg/dL Normal 0.55 - 1.02 [facility] Comment on above: Performed By: #### 2 30373 ####[facility],[address] [place] [address] 15590 eGFR 57 ML/MINUTE Low 60 - 999 [facility] Comment on above: Performed By: #### 2 28852 ####[facility],[address] [place] [address] 61104 GFR/1.73 sq M.predicted among non-blacks MDRD (S/P/Bld) [Vol rate/Area] mL/min/{1.73_m2} Normal 60 - 999 [facility] Comment on above: Result Comment: ACCO RDING TO THE NATIONAL KIDNEY DISEASE EDUCATION PROGRAM(NKDE), A NORMAL eGFRIS A VALUE GREATER THAN OR EQUAL TO 60 ML/MIN/1.73 SQ METERS.CHRONIC KIDNEY DISEASE: <60mL/MIN/1.73 SQ METERSKIDNEY FAILURE: <15mL/MIN/1.73 SQ METERSTHIS TEST SHOULD ONLY BE USED FOR PATIENTS 18 YEARS OF AGE AND OLDER. Performed By: #### 2 41961 ####[facility],[address] [place] [address] 04681 Glucose [Mass/Vol] 159 mg/dL High 74 - 106 [facility] Comment on above: Performed By: #### 2 69634 ####[facility],[address] [place] [address] 83569 Potassium [Moles/Vol] 3.0 mmol/L Low 3.5 - 5.1 [facility] Comment on above: Performed By: #### 2 62448 ####[facility],[address] [place] [address] 73561 Sodium [Moles/Vol] 137 mmol/L Normal 136 - 145 [facility] Comment on above: Performed By: #### 2 11056 ####[facility],[address] [place] [address] 15046 Urea nitrogen [Mass/Vol] 21 mg/dL High 7 - 18 [facility] Comment on above: Performed By: #### 2 26623 ####[facility],[address] [place] [address] 57258 CBC + DIFFon 10-04-2024 Baso # 0.03 x10EE3/UL Normal 0.00 - 0.10 [facility] Comment on above: Performed By: #### 2 09355 ####[place] [address] Basophils/100 WBC (Bld) 0.3 % Normal 0.0 - 2.0 [facility] Comment on above: Performed By: #### 2 38652 ####[place] [address] CBC + DIFF Normal [facility] Comment on above: Result Comment: CBC- COMPLETE BLOOD COUNT Performed By: #### 2 92202 ####[place] [address] EO # 0.04 x10EE3/UL Normal 0.00 - 0.50 [facility] Comment on above: Performed By: #### 2 14440 ####[place] [address] Eosinophils/100 WBC (Bld) 0.3 % Normal 0.0 - 7.0 [facility] Comment on above: Performed By: #### 2 56166 ####[place] [address] Erythrocyte distribution width (RBC) [Ratio] 14.2 % Normal 12.0 - 15.6 [facility] Comment on above: Performed By: #### 2 06893 ####[place] [address] Hematocrit (Bld) [Volume fraction] 36.6 % Normal 34.0 - 46.0 [facility] Comment on above: Performed By: #### 2 50543 ####[place] [address] Hemoglobin (Bld) [Mass/Vol] 12.1 g/dL Normal 12.0 - 16.0 [facility] Comment on above: Performed By: #### 2 23197 ####[address],[place] [address] Lymph # 0.61 x10EE3/UL Low 0.80 - 2.80 [facility] Comment on above: Performed By: #### 2 72114 ####[facility],[address] [place] [address] Lymphocytes/100 WBC (Bld) 4.9 % Low 20.0 - 45.0 [facility] Comment on above: Performed By: #### 2 15141 ####[facility],[address] [place] [address] MANUAL DIFF N/A Normal [facility] Comment on above: Performed By: #### 2 58525 ####[facility],[address] [place] [address] MCH (RBC) [Entitic mass] 31 pg Normal 27 - 33 [facility] Comment on above: Performed By: #### 2 26458 ####[facility],[address] [place] [address] MCHC 33 X10 3 Normal 32 - 36 [facility] Comment on above: Performed By: #### 2 59394 ####[facility],[address] [place], [place] [id number] MCV (RBC) [Entitic vol] 92 fL Normal 80 - 99 [facility] Comment on above: Performed By: #### 2 62581 ####[facility],[address] [place] [address] Refugio # 0.19 x10EE3/UL Low 0.20 - 1.00 [facility] Comment on above: Performed By: #### 2 77491 ####[facility],[address] [place] [address] MONOS % 1.5 % Normal 0.0 - 10.0 [facility] Comment on above: Performed By: #### 2 23168 ####[facility],[address] [place], [place] [id number] Morphology Dandy (Bld) [Interp] N/A Normal [facility] Comment on above: Performed By: #### 2 19964 ####[facility],[address] [place] [address] 69829 Neut # 11.58 x10EE3/UL High 1.50 - 7.10 [facility] Comment on above: Performed By: #### 2 77620 ####[facility],[address] [place] [address] 12923 Neutrophils/100 WBC (Bld) 93.0 % High 46.0 - 76.0 [facility] Comment on above: Performed By: #### 2 69730 ####[facility],[address] [place] [address] 87532 PLATELET 379 x10EE3/UL Normal 150 - 450 [facility] Comment on above: Performed By: #### 2 76468 ####[facility],[address] [place] [address] 31530 Platelet mean volume (Bld) [Entitic vol] 7.0 fL Normal 6.6 - 10.5 [facility] Comment on above: Result Comment: AUTO MATED DIFFERENTIAL Performed By: #### 2 81190 ####[facility],[address] [place] [address] 29131 RBC 3.98 x 10EE6/UL Low 4.10 - 5.30 [facility] Comment on above: Performed By: #### 2 16908 ####[facility],[address] [place] [address] 68354 WBC 12.5 x 10EE3/UL High 4.5 - 10.8 [facility] Comment on above: Performed By: #### 2 62076 ####[facility],[address] [place] [address] 43137 ED MED ADMINISTRATION DETAIL on 10-04-2024 ED MED ADMINISTRATION DETAIL Normal [facility] ED NURSES CLINICAL NOTEon ED NURSES CLINICAL NOTE Normal [facility] ED ORDER SHEET (CPOE ONLY)on 10-04-2024 ED ORDER SHEET (CPOE ONLY) Normal [facility] ED PHYSICIAN CLINICAL REPORT on 10-04-2024 ED PHYSICIAN CLINICAL REPORT Normal [facility] ED PHYSICIAN DISCHARGE REPOR Ton 10-04-2024 ED PHYSICIAN DISCHARGE REPORT Normal [facility] ED SUPER BILLon 10-04-2024 ED SUPER BILL Normal [facility] ED VISIT SUMMARYon ED VISIT SUMMARY Normal [facility] ED VITALS FLOW SHEETon 10-04 ED VITALS FLOW SHEET Normal [facility] CBC + DIFFon 10-03-2024 Baso # 0.06 x10EE3/UL Normal 0.00 - 0.10 [facility] Comment on above: Performed By: #### 2 61174 ####[facility],[address] [place] [address] 75651 Basophils/100 WBC (Bld) 0.5 % Normal 0.0 - 2.0 [facility] Comment on above: Performed By: #### 2 30117 ####[facility],[address] [place] [address] 96483 CBC + DIFF Normal [facility] Comment on above: Result Comment: CBC- COMPLETE BLOOD COUNT Performed By: #### 2 83219 ####[facility],[address] [place] [address] 41747 EO # 0.29 x10EE3/UL Normal 0.00 - 0.50 [facility] Comment on above: Performed By: #### 2 80729 ####[facility],[address] [place] [address] 13254 Eosinophils/100 WBC (Bld) 2.1 % Normal 0.0 - 7.0 [facility] Comment on above: Performed By: #### 2 37941 ####[facility],[address] [place] [address] 83447 Erythrocyte distribution width (RBC) [Ratio] 14.1 % Normal 12.0 - 15.6 [facility] Comment on above: Performed By: #### 2 40663 ####[facility],[address] [place] [address] Hematocrit (Bld) [Volume fraction] 41.7 % Normal 34.0 - 46.0 [facility] Comment on above: Performed By: #### 2 01040 ####[facility],[address] [place] [address] Hemoglobin (Bld) [Mass/Vol] 13.8 g/dL Normal 12.0 - 16.0 [facility] Comment on above: Performed By: #### 2 76005 ####[facility],[address] [place] [address] Lymph # 5.71 x10EE3/UL High 0.80 - 2.80 [facility] Comment on above: Performed By: #### 2 51274 ####[facility],[address] [place] [address] Lymphocytes/100 WBC (Bld) 41.9 % Normal 20.0 - 45.0 [facility] Comment on above: Performed By: #### 2 10079 ####[facility],[address] [place] [address] MANUAL DIFF N/A Normal [facility] Comment on above: Performed By: #### 2 84764 ####[facility],[address] [place], [place] [phone] MCH (RBC) [Entitic mass] 30 pg Normal 27 - 33 [facility] Comment on above: Performed By: #### 2 12338 ####[facility],[address] [place], [place] [phone] MCHC 33 X10 3 Normal 32 - 36 [facility] Comment on above: Performed By: #### 2 68713 ####[facility],[address] [place] [address] 71356 MCV (RBC) [Entitic vol] 91 fL Normal 80 - 99 [facility] Comment on above: Performed By: #### 2 74440 ####[facility],[address] [place] [address] 08651 Refugio # 1.18 x10EE3/UL High 0.20 - 1.00 [facility] Comment on above: Performed By: #### 2 76174 ####[facility],[address] [place] [address] 28554 MONOS % 8.6 % Normal 0.0 - 10.0 [facility] Comment on above: Performed By: #### 2 48688 ####[facility],[address] [place] [address] 27885 Morphology Dandy (Bld) [Interp] N/A Normal [facility] Comment on above: Performed By: #### 2 28779 ####[facility],[address] [place] [address] 98622 Neut # 6.39 x10EE3/UL Normal 1.50 - 7.10 [facility] Comment on above: Performed By: #### 2 42486 ####[facility],[address] [place] [address] 72385 Neutrophils/100 WBC (Bld) 46.9 % Normal 46.0 - 76.0 [facility] Comment on above: Performed By: #### 2 03427 ####[facility],[address] [place] [address] 16617 PLATELET 475 x10EE3/UL High 150 - 450 [facility] Comment on above: Performed By: #### 2 14187 ####[facility],[address] [place] [address] 28810 Platelet mean volume (Bld) [Entitic vol] 7.4 fL Normal 6.6 - 10.5 [facility] Comment on above: Result Comment: AUTO MATED DIFFERENTIAL Performed By: #### 2 72326 ####[facility],[address] [place] [address] 36007 RBC 4.58 x 10EE6/UL Normal 4.10 - 5.30 [facility] Comment on above: Performed By: #### 2 28997 ####[facility],[address] [place] [address] 34236 WBC 13.6 x 10EE3/UL High 4.5 - 10.8 [facility] Comment on above: Performed By: #### 2 22044 ####[facility],[address] [place] [address] 54933 CHEST 1 VIEWon 10-03-2024 CHEST 1 VIEW Normal [facility] CMP with eGFRon 10-03-2024 AGE 69 years Normal [facility] Comment on above: Performed By: #### 2 62756 ####[facility],[address] [place] [address] 38006 Albumin [Mass/Vol] 3.1 g/dL Low 3.4 - 5.0 [facility] Comment on above: Performed By: #### 2 66413 ####[facility],[address] [place] [address] 94960 Albumin/Globulin [Mass ratio] 0.7 {ratio} Low 0.9 - 1.6 [facility] Comment on above: Performed By: #### 2 83275 ####[facility],[address] [place] [address] 16704 ALK PHOS 124 U/L High 46 - 116 [facility] Comment on above: Performed By: #### 2 46885 ####[facility],[address] [place] [address] 07530 ALT [Catalytic activity/Vol] 90 U/L High 16 - 63 [facility] Comment on above: Performed By: #### 2 57275 ####[facility],[address] [place] [address] 37860 Anion gap [Moles/Vol] 13 mmol/L Normal 10 - 20 [facility] Comment on above: Performed By: #### 2 76536 ####[facility],[address] [place] [address] 23768 AST [Catalytic activity/Vol] 126 U/L High 13 - 39 [facility] Comment on above: Performed By: #### 2 48170 ####[facility],[address] [place] [address] 41813 B/C RATIO 15 ratio Normal 0 - 30 [facility] Comment on above: Performed By: #### 2 44461 ####[facility],[address] [place] [address] 47250 Bilirubin [Mass/Vol] 0.5 mg/dL Normal 0.2 - 1.0 [facility] Comment on above: Performed By: #### 2 60213 ####[facility],[address] [place] [address] 90039 Calcium [Mass/Vol] 8.6 mg/dL Normal 8.5 - 10.1 [facility] Comment on above: Performed By: #### 2 11946 ####[facility],[address] [place] [address] 30449 Chloride [Moles/Vol] 97 mmol/L Low 98 - 107 [facility] Comment on above: Performed By: #### 2 47599 ####[facility],[address] [place] [address] 12949 CMP with eGFR Normal [facility] Comment on above: Result Comment: COMP REHENSIVE METABOLIC PANEL Performed By: #### 2 92418 ####[facility],[address] [place] [address] 97342 CO2 [Moles/Vol] 30.3 mmol/L Normal 21.0 - 32.0 [facility] Comment on above: Performed By: #### 2 91239 ####[facility],[address] [place] [address] 15638 Creatinine [Mass/Vol] 1.33 mg/dL High 0.55 - 1.02 [facility] Comment on above: Performed By: #### 2 09523 ####[facility],[address] [place] [address] 81835 eGFR 39 ML/MINUTE Low 60 - 999 [facility] Comment on above: Performed By: #### 2 76451 ####[facility],[address] [place] [address] 34979 eGFR(AA) 48 ML/MINUTE Low 60 - 999 [facility] Comment on above: Result Comment: ACCO RDING TO THE NATIONAL KIDNEY DISEASE EDUCATION PROGRAM(NKDE), A NORMAL eGFRIS A VALUE GREATER THAN OR EQUAL TO 60 ML/MIN/1.73 SQ METERS.CHRONIC KIDNEY DISEASE: <60mL/MIN/1.73 SQ METERSKIDNEY FAILURE: <15mL/MIN/1.73 SQ METERSTHIS TEST SHOULD ONLY BE USED FOR PATIENTS 18 YEARS OF AGE AND OLDER. Performed By: #### 2 99007 ####[address] [address] Globulin (S) [Mass/Vol] 4.7 g/dL High 1.5 - 3.8 [facility] Comment on above: Performed By: #### 2 24277 ####[address] [address] Glucose [Mass/Vol] 271 mg/dL High 74 - 106 [facility] Comment on above: Performed By: #### 2 66321 ####[address] [address] Potassium [Moles/Vol] 3.1 mmol/L Low 3.5 - 5.1 [facility] Comment on above: Performed By: #### 2 78893 ####[address] [address] Protein [Mass/Vol] 7.8 g/dL Normal 6.4 - 8.2 [facility] Comment on above: Performed By: #### 2 92935 ####[facility],[address] [place] [address] 78491 Sodium [Moles/Vol] 137 mmol/L Normal 136 - 145 [facility] Comment on above: Performed By: #### 2 85890 ####[facility],[address] [place] [address] 37372 Urea nitrogen [Mass/Vol] 20 mg/dL High 7 - 18 [facility] Comment on above: Performed By: #### [id number] ####[facility],[address] [place] [address] MYCOon 09-08-2023 Mycoplasma IgG equiv Normal [facility] ([place]) Comment on above: Result Comment: INTE RPRETATION OF MYCOPLASMA IgG BY EIA: Negative: No detectable M. pneumoniae IgG antibody. Positive: Mycoplasma pneumoniae IgG antibody Detected. Equivocal: Equivocal for IgG antibodies to Mycoplasma pneumoniae. Suggest repeat testing in 10-14 days. Performed By: #### P HOS, TROPHS, MG, CBC, ADIFF, ANEU, MYCO, CMP, CAION, GFR ####[address] [address] .Auto Diffon 09-06-2023 Basophil, Absolute 0.1 10 3/mcL Normal 0.0-0.3 [facility] ([place]) Comment on above: Performed By: #### A DIFF, MG, ANEU, GFR, CBC, BMP ####[address] [address] Basophils/100 WBC (Bld) 1.5 % Normal 0.0-2.5 [facility] ([place]) Comment on above: Performed By: #### A DIFF, MG, ANEU, GFR, CBC, BMP ####[address] [address] Eosinophil, Absolute 0.4 10 3/mcL Normal 0.0-0.7 [facility] ([place]) Comment on above: Performed By: #### A DIFF, MG, ANEU, GFR, CBC, BMP ####[address] [address] Eosinophils/100 WBC (Bld) 5.4 % Normal 0.0-6.0 [facility] ([place]) Comment on above: Performed By: #### A DIFF, MG, ANEU, GFR, CBC, BMP ####[address] [address] Lymphocyte, Absolute 2.0 10 3/mcL Normal 0.9-4.3 [facility] ([place] Comment on above: Performed By: #### A DIFF, MG, ANEU, GFR, CBC, BMP ####[address] [address] Lymphocytes/100 WBC (Bld) 27.7 % Normal 20.0-40.0 [facility] ([place] Comment on above: Performed By: #### A DIFF, MG, ANEU, GFR, CBC, BMP ####[address] [address] Monocyte, Absolute 0.9 10 3/mcL Normal 0.1-1.4 [facility] ([place]) Comment on above: Performed By: #### A DIFF, MG, ANEU, GFR, CBC, BMP ####[address] [address] Monocytes/100 WBC (Bld) 13.0 % Normal 2.0-13.0 [facility] ([place] Comment on above: Performed By: #### A DIFF, MG, ANEU, GFR, CBC, BMP ####[address] [address] Neutrophils/100 WBC (Bld) 52.4 % Normal 50.0-75.0 [facility] ([place] Comment on above: Performed By: #### A DIFF, MG, ANEU, GFR, CBC, BMP ####[address] [address] .GFRon 09-06-2023 GFR Non- >60 Normal [facility] ([place] Comment on above: Result Comment: GFR Population [...] A DIFF, MG, ANEU, GFR, CBC, BMP ####[address] [address] GFR >60 Normal [facility] ([place] Comment on above: Result Comment: GFR Population [...] A DIFF, MG, ANEU, GFR, CBC, BMP ####[place] [address] .NEUABSon 09-06-2023 Neutrophil, Absolute 3.7 10 3/mcL Normal 2.3-8.1 [facility] ([place] Comment on above: Performed By: #### A DIFF, MG, ANEU, GFR, CBC, BMP ####[address] [address] BMPon 09-06-2023 BUN/Creatinine Ratio 22.5 ratio High 10.0-22.0 [facility] ([place]) Comment on above: Performed By: #### A DIFF, MG, ANEU, GFR, CBC, BMP ####[address] [address] Calcium [Mass/Vol] 8.7 mg/dL Normal 8.7-10.4 [facility] ([place] Comment on above: Performed By: #### A DIFF, MG, ANEU, GFR, CBC, BMP ####[place] [address] Chloride [Moles/Vol] 101 mmol/L Normal 98-110 [facility] ([place] Comment on above: Performed By: #### A DIFF, MG, ANEU, GFR, CBC, BMP ####[place] [address] CO2 [Moles/Vol] 33 mmol/L High 22-32 [facility] ([place] Comment on above: Performed By: #### A DIFF, MG, ANEU, GFR, CBC, BMP ####[place] [address] Creatinine [Mass/Vol] 0.89 mg/dL Normal 0.50-1.20 [facility] ([place] Comment on above: Performed By: #### A DIFF, MG, ANEU, GFR, CBC, BMP ####[place] [address] Electrolyte Balance 3.0 mEq/L Low 4.0-15.0 [facility] ([place]) Comment on above: Performed By: #### A DIFF, MG, ANEU, GFR, CBC, BMP ####[place] [address] Glucose [Mass/Vol] 100 mg/dL Normal 82-115 [facility] ([place] Comment on above: Performed By: #### A DIFF, MG, ANEU, GFR, CBC, BMP ####[place] [address] Potassium [Moles/Vol] 3.9 mmol/L Normal 3.5-5.0 [facility] [place] Comment on above: Performed By: #### A DIFF, MG, ANEU, GFR, CBC, BMP ####[place] [address] Sodium [Moles/Vol] 137 mmol/L Normal 136-145 [facility] ([place] Comment on above: Performed By: #### A DIFF, MG, ANEU, GFR, CBC, BMP ####[place] [address] Urea nitrogen [Mass/Vol] 20.0 mg/dL Normal 8.0-22.0 [facility] ([place] Comment on above: Performed By: #### A DIFF, MG, ANEU, GFR, CBC, BMP ####[place] [address] CBCon 09-06-2023 Erythrocyte distribution width (RBC) [Ratio] 13.7 % Normal 11.5-15.5 [facility] ([place] Comment on above: Performed By: #### A DIFF, MG, ANEU, GFR, CBC, BMP ####[place] [address] Hematocrit (Bld) [Volume fraction] 39.7 % Normal 34.0-46.0 [facility] ([place] Comment on above: Performed By: #### A DIFF, MG, ANEU, GFR, CBC, BMP ####[place] [address] Hgb 13.5 G/dL Normal 12.0-16.0 [facility] ([place] Comment on above: Performed By: #### A DIFF, MG, ANEU, GFR, CBC, BMP ####[place] [address] MCH (RBC) [Entitic mass] 30.9 pg Normal 27.0-33.0 [facility] ([place] Comment on above: Performed By: #### A DIFF, MG, ANEU, GFR, CBC, BMP ####[place] [address] MCHC 34.0 G/dL Normal 32.0-36.0 [facility] ([place] Comment on above: Performed By: #### A DIFF, MG, ANEU, GFR, CBC, BMP ####[place] [address] MCV (RBC) [Entitic vol] 90.9 fL Normal 80.0-99.0 [facility] ([place] Comment on above: Performed By: #### A DIFF, MG, ANEU, GFR, CBC, BMP ####[place] [address] Platelet 299 10 3/mcL Normal 150-450 [facility] ([place] Comment on above: Performed By: #### A DIFF, MG, ANEU, GFR, CBC, BMP ####[place] [address] Platelet mean volume (Bld) [Entitic vol] 7.8 fL Normal 6.6-10.5 [facility] ([place] Comment on above: Performed By: #### A DIFF, MG, ANEU, GFR, CBC, BMP ####[place] [address] RBC 4.37 10 6/mcL Normal 4.10-5.30 [facility] ([place] Comment on above: Performed By: #### A DIFF, MG, ANEU, GFR, CBC, BMP ####[place] [address] WBC 7.1 10 3/mcL Normal 4.5-10.8 [facility] ([place] Comment on above: Performed By: #### A DIFF, MG, ANEU, GFR, CBC, BMP ####[place] [address] LABORATORYOrdered By: SYSTEM SYSTEM on 09-06-2023 Basophils [...] (S/P/Bld) [Vol rate/Area] ml/min/1.73sqm Invalid Interpretation Code [facility] Comment on above: Interpretive Data: GFR Population [...] 09-06-2023 Magnesium [Mass/Vol] 2.0 mg/dL Normal 1.6-2.4 [facility] ([place]) Comment on above: Performed By: #### A DIFF, MG, ANEU, GFR, CBC, BMP ####[address] [address] .Auto Diffon 09-05-2023 Basophil, Absolute 0.2 10 3/mcL Normal 0.0-0.3 [facility] ([place]) Comment on above: Performed By: #### B G #### [address] [address] Basophils/100 WBC (Bld) 2.9 % High 0.0-2.5 [facility] ([place] Comment on above: Performed By: #### B G #### [address] [address] Eosinophil, Absolute 0.2 10 3/mcL Normal 0.0-0.7 [facility] ([place] Comment on above: Performed By: #### B G #### [address] [address] Eosinophils/100 WBC (Bld) 2.1 % Normal 0.0-6.0 [facility] ([place] Comment on above: Performed By: #### B G #### [address] [address] Lymphocyte, Absolute 1.8 10 3/mcL Normal 0.9-4.3 [facility] ([place] Comment on above: Performed By: #### B G #### [address] [address] Lymphocytes/100 WBC (Bld) 25.1 % Normal 20.0-40.0 [facility] ([place] Comment on above: Performed By: #### B G #### [address] [address] Monocyte, Absolute 1.0 10 3/mcL Normal 0.1-1.4 [facility] ([place]) Comment on above: Performed By: #### B G #### [address] [address] Monocytes/100 WBC (Bld) 13.7 % High 2.0-13.0 [facility] ([place] Comment on above: Performed By: #### B G #### [address] [address] Neutrophils/100 WBC (Bld) 56.2 % Normal 50.0-75.0 [facility] ([place] Comment on above: Performed By: #### B G #### [address] [address] .GFRon 09-05-2023 GFR >60 Normal [facility] ([place]) Comment on above: Result Comment: GFR Population [...] B MP, GFR, ANEU, CBC, MG, ADIFF ####[address] [address] GFR Non- >60 Normal [facility] ([place] Comment on above: Result Comment: GFR Population [...] B MP, GFR, ANEU, CBC, MG, ADIFF ####[address] [address] .NEUABSon 09-05-2023 Neutrophil, Absolute 3.9 10 3/mcL Normal 2.3-8.1 [facility] ([place]) Comment on above: Performed By: #### B G #### [address] [address] BMPon 09-05-2023 BUN/Creatinine Ratio 20.2 ratio Normal 10.0-22.0 [facility] ([place]) Comment on above: Performed By: #### B G #### [place] [address] Calcium [Mass/Vol] 8.7 mg/dL Normal 8.7-10.4 [facility] ([place] Comment on above: Performed By: #### B G #### [place] [address] Chloride [Moles/Vol] 101 mmol/L Normal 98-110 [facility] ([place] Comment on above: Performed By: #### B G #### [place] [address] CO2 [Moles/Vol] 29 mmol/L Normal 22-32 [facility] ([place] Comment on above: Performed By: #### B G #### [place] [address] Creatinine [Mass/Vol] 0.89 mg/dL Normal 0.50-1.20 [facility] [place] Comment on above: Performed By: #### B G #### [place] [phone] Electrolyte Balance 6.0 mEq/L Normal 4.0-15.0 [facility] ([place]) Comment on above: Performed By: #### B G #### [place] [phone] Glucose [Mass/Vol] 87 mg/dL Normal 82-115 [facility] ([place] Comment on above: Performed By: #### B G #### [place] [address] Potassium [Moles/Vol] 3.6 mmol/L Normal 3.5-5.0 [facility] [place] Comment on above: Performed By: #### B G #### [place] [address] Sodium [Moles/Vol] 136 mmol/L Normal 136-145 [facility] ([place] Comment on above: Performed By: #### B G #### [place] [address] Urea nitrogen [Mass/Vol] 18.0 mg/dL Normal 8.0-22.0 [facility] ([place] Comment on above: Performed By: #### B G #### [place] [address] CBCon 09-05-2023 Erythrocyte distribution width (RBC) [Ratio] 13.9 % Normal 11.5-15.5 [facility] ([place] Comment on above: Performed By: #### B G #### [place] [phone] Hematocrit (Bld) [Volume fraction] 36.4 % Normal 34.0-46.0 [facility] ([place] Comment on above: Performed By: #### B G #### [place] [address] Hgb 12.3 G/dL Normal 12.0-16.0 [facility] ([place] Comment on above: Performed By: #### B G #### [place] [phone] MCH (RBC) [Entitic mass] 30.7 pg Normal 27.0-33.0 [facility] ([place] Comment on above: Performed By: #### B G #### [place] [address] MCHC 33.7 G/dL Normal 32.0-36.0 [facility] ([place] Comment on above: Performed By: #### B G #### [place] [phone] MCV (RBC) [Entitic vol] 91.1 fL Normal 80.0-99.0 [facility] ([place] Comment on above: Performed By: #### B G #### [facility] [address] [place] [address] Platelet 278 10 3/mcL Normal 150-450 [facility] ([place]) Comment on above: Performed By: #### B G #### [facility] [address] [place] [address] Platelet mean volume (Bld) [Entitic vol] 7.5 fL Normal 6.6-10.5 [facility] ([place]) Comment on above: Performed By: #### B G #### [facility] [address] [place] [address] RBC 4.00 10 6/mcL Low 4.10-5.30 [facility] ([place]) Comment on above: Performed By: #### B G #### [address] [address] WBC 7.0 10 3/mcL Normal 4.5-10.8 [facility] ([place] Comment on above: Performed By: #### B G #### [address] [address] LABORATORYOrdered By: Horace Valdez on 09-05-2023 Blood Glucose Testing Reason Routine (09/05/23 7:27 AM) [facility] Glucose [Mass/Vol] 119 mg/dL High 82 - 115 mg/dL [facility] LABORATORYOrdered By: SYSTEM SYSTEM on 09-05-2023 Basophils [...] (S/P/Bld) [Vol rate/Area] ml/min/1.73sqm Invalid Interpretation Code [facility] Comment on above: Interpretive Data: GFR Population [...] 09-05-2023 Magnesium [Mass/Vol] 2.2 mg/dL Normal 1.6-2.4 [facility] ([place]) Comment on above: Performed By: #### B MP, GFR, ANEU, CBC, MG, ADIFF ####[address] [address] .Auto Diffon 09-04-2023 Basophil, Absolute 0.1 10 3/mcL Normal 0.0-0.3 [facility] ([place]) Comment on above: Performed By: #### C MP, GFR, CBC, ANEU, ADIFF ####[address] [address] Basophils/100 WBC (Bld) 1.3 % Normal 0.0-2.5 [facility] ([place] Comment on above: Performed By: #### C MP, GFR, CBC, ANEU, ADIFF ####[address] [address] Eosinophil, Absolute 0.1 10 3/mcL Normal 0.0-0.7 [facility] ([place] Comment on above: Performed By: #### C MP, GFR, CBC, ANEU, ADIFF ####[address] [address] Eosinophils/100 WBC (Bld) 1.0 % Normal 0.0-6.0 [facility] ([place] Comment on above: Performed By: #### C MP, GFR, CBC, ANEU, ADIFF ####[address] [address] Lymphocyte, Absolute 1.9 10 3/mcL Normal 0.9-4.3 [facility] ([place] Comment on above: Performed By: #### C MP, GFR, CBC, ANEU, ADIFF ####[address] [address] Lymphocytes/100 WBC (Bld) 23.0 % Normal 20.0-40.0 [facility] ([place] Comment on above: Performed By: #### C MP, GFR, CBC, ANEU, ADIFF ####[address] [address] Monocyte, Absolute 1.0 10 3/mcL Normal 0.1-1.4 [facility] ([place] Comment on above: Performed By: #### C MP, GFR, CBC, ANEU, ADIFF ####[address] [address] Monocytes/100 WBC (Bld) 11.5 % Normal 2.0-13.0 [facility] ([place] Comment on above: Performed By: #### C MP, GFR, CBC, ANEU, ADIFF ####[address] [address] Neutrophils/100 WBC (Bld) 63.2 % Normal 50.0-75.0 [facility] ([place] Comment on above: Performed By: #### C MP, GFR, CBC, ANEU, ADIFF ####[address] [address] .GFRon 09-04-2023 GFR >60 Normal [facility] ([place]) Comment on above: Result Comment: GFR Population [...] #### C MP, GFR, CBC, ANEU, ADIFF ####[address] [address] GFR Non- >60 Normal [facility] ([place] Comment on above: Result Comment: GFR Population [...] #### C MP, GFR, CBC, ANEU, ADIFF ####[address] [address] .NEUABSon 09-04-2023 Neutrophil, Absolute 5.3 10 3/mcL Normal 2.3-8.1 [facility] ([place] Comment on above: Performed By: #### C MP, GFR, CBC, ANEU, ADIFF ####[address] [address] APTTon 09-04-2023 aPTT Coag (Bld) [Time] 27.4 s Normal 25.0-35.0 [facility] ([place]) Comment on above: Result Comment: For Heparin anticoagulation therapy, the recommended therapeutic range is: 54-77 seconds (APTT Correlation with Anti-Xa therapeutic range of 0.3-0.7 units/ml). PLEASE REFERENCE THE PHARMACY PROTOCOL FOR DOSING. Heparin dose (APTT) Unknown Normal [facility] ([place]) aPTT Coag (Bld) [Time] 46.1 s High 25.0-35.0 [facility] ([place] Comment on above: Result Comment: For Heparin anticoagulation therapy, the recommended therapeutic range is: 54-77 seconds (APTT Correlation with Anti-Xa therapeutic range of 0.3-0.7 units/ml). PLEASE REFERENCE THE PHARMACY PROTOCOL FOR DOSING. Heparin dose (APTT) Heparin IV Normal [facility] ([place] aPTT Coag (Bld) [Time] 41.1 s High 25.0-35.0 [facility] ([place] Comment on above: Result Comment: For Heparin anticoagulation therapy, the recommended therapeutic range is: 54-77 seconds (APTT Correlation with Anti-Xa therapeutic range of 0.3-0.7 units/ml). PLEASE REFERENCE THE PHARMACY PROTOCOL FOR DOSING. Heparin dose (APTT) Heparin IV Normal [facility] ([place]) CBCon 09-04-2023 Erythrocyte distribution width (RBC) [Ratio] 14.0 % Normal 11.5-15.5 [facility] ([place] Comment on above: Performed By: #### C MP, GFR, CBC, ANEU, ADIFF ####[place] [address] Hematocrit (Bld) [Volume fraction] 37.8 % Normal 34.0-46.0 [facility] ([place] Comment on above: Performed By: #### C MP, GFR, CBC, ANEU, ADIFF ####[place] [address] Hgb 12.8 G/dL Normal 12.0-16.0 [facility] ([place] Comment on above: Performed By: #### C MP, GFR, CBC, ANEU, ADIFF ####[place] [address] MCH (RBC) [Entitic mass] 30.7 pg Normal 27.0-33.0 [facility] ([place] Comment on above: Performed By: #### C MP, GFR, CBC, ANEU, ADIFF ####[place] [address] MCHC 33.9 G/dL Normal 32.0-36.0 [facility] ([place] Comment on above: Performed By: #### C MP, GFR, CBC, ANEU, ADIFF ####[place] [address] MCV (RBC) [Entitic vol] 90.6 fL Normal 80.0-99.0 [facility] ([place] Comment on above: Performed By: #### C MP, GFR, CBC, ANEU, ADIFF ####[place] [address] Platelet 281 10 3/mcL Normal 150-450 [facility] ([place] Comment on above: Performed By: #### C MP, GFR, CBC, ANEU, ADIFF ####[place] [address] Platelet mean volume (Bld) [Entitic vol] 7.6 fL Normal 6.6-10.5 [facility] ([place] Comment on above: Performed By: #### C MP, GFR, CBC, ANEU, ADIFF ####[address] [address] RBC 4.17 10 6/mcL Normal 4.10-5.30 [facility] ([place] Comment on above: Performed By: #### C MP, GFR, CBC, ANEU, ADIFF ####[address] [address] WBC 8.5 10 3/mcL Normal 4.5-10.8 [facility] ([place] Comment on above: Performed By: #### C MP, GFR, CBC, ANEU, ADIFF ####[place] [address] CMPon 09-04-2023 Albumin Level 3.3 G/dL Normal 3.2-4.8 [facility] ([place] Comment on above: Performed By: #### C MP, GFR, CBC, ANEU, ADIFF ####[address] [address] Albumin/Globulin [Mass ratio] 1.0 {ratio} Normal 0.9-1.6 [facility] ([place] Comment on above: Performed By: #### C MP, GFR, CBC, ANEU, ADIFF ####[address] [address] ALP [Catalytic activity/Vol] 95 U/L Normal 38-126 [facility] ([place] Comment on above: Performed By: #### C MP, GFR, CBC, ANEU, ADIFF ####[address] [address] ALT [Catalytic activity/Vol] 103 U/L High 10-49 [facility] ([place] Comment on above: Performed By: #### C MP, GFR, CBC, ANEU, ADIFF ####[address] [address] AST [Catalytic activity/Vol] 64 U/L High 8-34 [facility] ([place] Comment on above: Performed By: #### C MP, GFR, CBC, ANEU, ADIFF ####[address] [address] Bili Total 1.00 mg/dL Normal 0.20-1.20 [facility] ([place] Comment on above: Result Comment: Use of this assay is not recommended for patients undergoing treatment with eltrombopag due to the potential for falsely elevated results. Performed By: #### C MP, GFR, CBC, ANEU, ADIFF ####[place] [id number] BUN/Creatinine Ratio 23.1 ratio High 10.0-22.0 [facility] ([place]) Comment on above: Performed By: #### C MP, GFR, CBC, ANEU, ADIFF ####[place] [id number] Calcium [Mass/Vol] 9.0 mg/dL Normal 8.7-10.4 [facility] ([place] Comment on above: Performed By: #### C MP, GFR, CBC, ANEU, ADIFF ####[address] [address] Chloride [Moles/Vol] 100 mmol/L Normal 98-110 [facility] ([place]) Comment on above: Performed By: #### C MP, GFR, CBC, ANEU, ADIFF ####[address] [address] CO2 [Moles/Vol] 30 mmol/L Normal 22-32 [facility] ([place] Comment on above: Performed By: #### C MP, GFR, CBC, ANEU, ADIFF ####[address] [address] Creatinine [Mass/Vol] 0.78 mg/dL Normal 0.50-1.20 [facility] [place] Comment on above: Performed By: #### C MP, GFR, CBC, ANEU, ADIFF ####[address] [address] Electrolyte Balance 3.0 mEq/L Low 4.0-15.0 [facility] ([place] Comment on above: Performed By: #### C MP, GFR, CBC, ANEU, ADIFF ####[address] [address] Globulin 3.4 G/dL Normal 1.5-3.8 [facility] ([place] Comment on above: Performed By: #### C MP, GFR, CBC, ANEU, ADIFF ####[address] [address] Glucose [Mass/Vol] 134 mg/dL High 82-115 [facility] ([place] Comment on above: Performed By: #### C MP, GFR, CBC, ANEU, ADIFF ####[address] [address] Potassium [Moles/Vol] 3.1 mmol/L Low 3.5-5.0 [facility] [place] Comment on above: Performed By: #### C MP, GFR, CBC, ANEU, ADIFF ####[address] [address] Sodium [Moles/Vol] 133 mmol/L Low 136-145 [facility] ([place] Comment on above: Performed By: #### C MP, GFR, CBC, ANEU, ADIFF ####[place] [address] Total Protein 6.7 G/dL Normal 5.7-8.2 [facility] ([place]) Comment on above: Result Comment: No te - New Reference Range in effect 20 Performed By: #### C MP, GFR, CBC, ANEU, ADIFF ####[address] [address] Urea nitrogen [Mass/Vol] 18.0 mg/dL Normal 8.0-22.0 [facility] ([place] Comment on above: Performed By: #### C MP, GFR, CBC, ANEU, ADIFF ####[address] [place] [address] LABORATORYOrdered By: Pee Cerna on 09-04-2023 Blood Glucose Testing Reason Routine (09/04/23 9:00 PM) [facility] Glucose [Mass/Vol] 98 mg/dL Normal 82 - 115 mg/dL [facility] LABORATORYOrdered By: Carolynn Weston on 09-04-2023 aPTT [...] Glucose Testing Reason Routine (09/04/23 4:19 PM) [facility] Glucose [Mass/Vol] 97 mg/dL Normal 82 - 115 mg/dL [facility] LABORATORYOrdered By: SYSTEM SYSTEM on 09-04-2023 Albumin [...] IgM Negative Normal [facility] ([place] Comment on above: Result Comment: INTE RPRETATION [...] CBC, ADIFF, ANEU, MYCO, CMP, CAION, GFR ####[place] [address] [address] [place] [address] XR CHEST 1 VIEWon 09-04-2023 XR CHEST [...] Date: 09/04/2023 6:42:09 AM Ordering Provider: FEDERICA DOVRE Normal [facility] ([place]) .Auto Diffon 09-03-2023 Basophil, Absolute 0.1 10 3/mcL Normal 0.0-0.3 [facility] ([place]) Comment on above: Performed By: #### T ROPHS, MG, LAC, GFR, CBC, CMP, ADIFF, ANEU ####[place] [address] [address] [place] [address] Basophils/100 WBC (Bld) 0.6 % Normal 0.0-2.5 [facility] ([place]) Comment on above: Performed By: #### T ROPHS, MG, LAC, GFR, CBC, CMP, ADIFF, ANEU ####[place] [address] [address] [place] [address] Eosinophil, Absolute 0.0 10 3/mcL Normal 0.0-0.7 [facility] ([place]) Comment on above: Performed By: #### T ROPHS, MG, LAC, GFR, CBC, CMP, ADIFF, ANEU ####[address] [address] Eosinophils/100 WBC (Bld) 0.2 % Normal 0.0-6.0 [facility] ([place] Comment on above: Performed By: #### T ROPHS, MG, LAC, GFR, CBC, CMP, ADIFF, ANEU ####[address] [address] Lymphocyte, Absolute 2.0 10 3/mcL Normal 0.9-4.3 [facility] ([place] Comment on above: Performed By: #### T ROPHS, MG, LAC, GFR, CBC, CMP, ADIFF, ANEU ####[address] [address] Lymphocytes/100 WBC (Bld) 20.9 % Normal 20.0-40.0 [facility] ([place] Comment on above: Performed By: #### T ROPHS, MG, LAC, GFR, CBC, CMP, ADIFF, ANEU ####[address] [address] Monocyte, Absolute 1.1 10 3/mcL Normal 0.1-1.4 [facility] ([place]) Comment on above: Performed By: #### T ROPHS, MG, LAC, GFR, CBC, CMP, ADIFF, ANEU ####[address] [address] Monocytes/100 WBC (Bld) 10.8 % Normal 2.0-13.0 [facility] ([place] Comment on above: Performed By: #### T ROPHS, MG, LAC, GFR, CBC, CMP, ADIFF, ANEU ####[address] [address] Neutrophils/100 WBC (Bld) 67.5 % Normal 50.0-75.0 [facility] ([place] Comment on above: Performed By: #### T ROPHS, MG, LAC, GFR, CBC, CMP, ADIFF, ANEU ####[address] [address] .GFRon 09-03-2023 GFR >60 Normal [facility] ([place]) Comment on above: Result Comment: GFR Population [...] meters Performed By: #### B G #### [place] [address] GFR Non- 56 ml/min/1.73sqm Normal [facility] ([place] Comment on above: Result Comment: GFR Population [...] meters Performed By: #### B G #### [place] [address] .NEUABSon 09-03-2023 Neutrophil, Absolute 6.6 10 3/mcL Normal 2.3-8.1 [facility] ([place] Comment on above: Performed By: #### T ROPHS, MG, LAC, GFR, CBC, CMP, ADIFF, ANEU ####[place] [address] APTTon 09-03-2023 aPTT Coag (Bld) [Time] 44.3 s High 25.0-35.0 [facility] ([place] Comment on above: Result Comment: For Heparin anticoagulation therapy, the recommended therapeutic range is: 54-77 seconds (APTT Correlation with Anti-Xa therapeutic range of 0.3-0.7 units/ml). PLEASE REFERENCE THE PHARMACY PROTOCOL FOR DOSING. Heparin dose (APTT) Heparin IV Normal [facility] ([place] aPTT Coag (Bld) [Time] 45.1 s High 25.0-35.0 [facility] ([place] Comment on above: Result Comment: For Heparin anticoagulation therapy, the recommended therapeutic range is: 54-77 seconds (APTT Correlation with Anti-Xa therapeutic range of 0.3-0.7 units/ml). PLEASE REFERENCE THE PHARMACY PROTOCOL FOR DOSING. Heparin dose (APTT) Heparin IV Normal [facility] ([place] BGon 09-03-2023 Barometric Pressure 715 mmHg Normal [facility] ([place] Comment on above: Performed By: #### L AC #### [address] [address] Base excess Calc (Bld) [Moles/Vol] 7.6 mmol/L Normal [facility] ([place]) Comment on above: Performed By: #### L AC #### [address] [address] CO2 [Moles/Vol] 30.7 mmol/L High 22.0-30.0 [facility] ([place]) Comment on above: Performed By: #### L AC #### [address] [address] HCO3 (Bld) [Moles/Vol] 29.7 mmol/L High 21.0-29.0 [facility] ([place]) Comment on above: Performed By: #### L AC #### [address] [address] Oxygen (Bld) [Partial pressure] 65.0 mm[Hg] Low 74.0-108.0 [facility] ([place]) Comment on above: Performed By: #### L AC #### [address] [address] Oxygen saturation in Blood 94.0 % Normal 92.0-96.0 [facility] ([place] Comment on above: Performed By: #### L AC #### [facility] [address] [place] [address] pCO2 33.3 mmHg Normal 32.0-46.0 [facility] ([place]) Comment on above: Performed By: #### L AC #### [address] [address] pH (Bld) 7.568 [pH] High 7.380-7.460 [facility] ([place] Comment on above: Performed By: #### L AC #### [address] [address] Barometric Pressure 720 mmHg Normal [facility] ([place] Comment on above: Performed By: #### B G ####[address] [address] Base excess Calc (Bld) [Moles/Vol] 7.2 mmol/L Normal [facility] ([place] Comment on above: Performed By: #### B G ####[address] [address] CO2 [Moles/Vol] 32.5 mmol/L High 22.0-30.0 [facility] ([place] Comment on above: Performed By: #### B G ####[address] [address] HCO3 (Bld) [Moles/Vol] 31.2 mmol/L High 21.0-29.0 [facility] ([place] Comment on above: Performed By: #### B G ####[address] [address] Oxygen (Bld) [Partial pressure] 86.0 mm[Hg] Normal 74.0-108.0 [facility] ([place] Comment on above: Performed By: #### B G ####[address] [address] Oxygen saturation in Blood 96.7 % High 92.0-96.0 [facility] ([place] Comment on above: Performed By: #### B G ####[place] [address] pCO2 41.9 mmHg Normal 32.0-46.0 [facility] ([place] Comment on above: Performed By: #### B G ####[place] [address] pH (Bld) 7.490 [pH] High 7.380-7.460 [facility] ([place] Comment on above: Performed By: #### B G ####[place] [address] CBCon 09-03-2023 Erythrocyte distribution width (RBC) [Ratio] 14.6 % Normal 11.5-15.5 [facility] ([place]) Comment on above: Performed By: #### T ROPHS, MG, LAC, GFR, CBC, CMP, ADIFF, ANEU ####[place] [address] Hematocrit (Bld) [Volume fraction] 36.6 % Normal 34.0-46.0 [facility] ([place] Comment on above: Performed By: #### T ROPHS, MG, LAC, GFR, CBC, CMP, ADIFF, ANEU ####[place] [address] Hgb 12.3 G/dL Normal 12.0-16.0 [facility] ([place] Comment on above: Performed By: #### T ROPHS, MG, LAC, GFR, CBC, CMP, ADIFF, ANEU ####[place] [address] MCH (RBC) [Entitic mass] 30.3 pg Normal 27.0-33.0 [facility] ([place] Comment on above: Performed By: #### T ROPHS, MG, LAC, GFR, CBC, CMP, ADIFF, ANEU ####[place] [address] MCHC 33.5 G/dL Normal 32.0-36.0 [facility] ([place] Comment on above: Performed By: #### T ROPHS, MG, LAC, GFR, CBC, CMP, ADIFF, ANEU ####[address] [address] MCV (RBC) [Entitic vol] 90.2 fL Normal 80.0-99.0 [facility] ([place] Comment on above: Performed By: #### T ROPHS, MG, LAC, GFR, CBC, CMP, ADIFF, ANEU ####[place] [id number] Platelet 274 10 3/mcL Normal 150-450 [facility] ([place]) Comment on above: Performed By: #### T ROPHS, MG, LAC, GFR, CBC, CMP, ADIFF, ANEU ####[place] [id number] Platelet mean volume (Bld) [Entitic vol] 7.7 fL Normal 6.6-10.5 [facility] ([place] Comment on above: Performed By: #### T ROPHS, MG, LAC, GFR, CBC, CMP, ADIFF, ANEU ####[place] [address] RBC 4.05 10 6/mcL Low 4.10-5.30 [facility] ([place]) Comment on above: Performed By: #### T ROPHS, MG, LAC, GFR, CBC, CMP, ADIFF, ANEU ####[address] [address] WBC 9.8 10 3/mcL Normal 4.5-10.8 [facility] ([place]) Comment on above: Performed By: #### T ROPHS, MG, LAC, GFR, CBC, CMP, ADIFF, ANEU ####[address] [address] CMPon 09-03-2023 Albumin Level 2.8 G/dL Low 3.2-4.8 [facility] ([place] Comment on above: Performed By: #### B G #### [address] [address] Albumin/Globulin [Mass ratio] 1.0 {ratio} Normal 0.9-1.6 [facility] ([place] Comment on above: Performed By: #### B G #### [address] [address] ALP [Catalytic activity/Vol] 98 U/L Normal 38-126 [facility] ([place] Comment on above: Performed By: #### B G #### [address] [address] ALT [Catalytic activity/Vol] 138 U/L High 10-49 [facility] ([place] Comment on above: Performed By: #### B G #### [address] [address] AST [Catalytic activity/Vol] 92 U/L High 8-34 [facility] ([place] Comment on above: Performed By: #### B G #### [address] [address] Bili Total 0.60 mg/dL Normal 0.20-1.20 [facility] ([place]) Comment on above: Result Comment: Use of this assay is not recommended for patients undergoing treatment with eltrombopag due to the potential for falsely elevated results. Performed By: #### Sidney G #### [address] [address] BUN/Creatinine Ratio 27.6 ratio High 10.0-22.0 [facility] ([place]) Comment on above: Performed By: #### B G #### [address] [address] Calcium [Mass/Vol] 8.5 mg/dL Low 8.7-10.4 [facility] ([place]) Comment on above: Performed By: #### B G #### [address] [address] Chloride [Moles/Vol] 105 mmol/L Normal 98-110 [facility] ([place]) Comment on above: Performed By: #### B G #### [address] [address] CO2 [Moles/Vol] 31 mmol/L Normal 22-32 [facility] ([place] Comment on above: Performed By: #### Sidney G #### [address] [address] Creatinine [Mass/Vol] 0.98 mg/dL Normal 0.50-1.20 [facility] [place] Comment [place]: Performed By: #### B G #### [address] [address] Electrolyte Balance 4.0 mEq/L Normal 4.0-15.0 [facility] ([place]) Comment on above: Performed By: #### B G #### [address] [address] Globulin 2.9 G/dL Normal 1.5-3.8 [facility] ([place] Comment on above: Performed By: #### B G #### [place] [phone] Glucose [Mass/Vol] 110 mg/dL Normal 82-115 [facility] ([place] Comment on above: Performed By: #### B G #### [place] [address] Potassium [Moles/Vol] 3.8 mmol/L Normal 3.5-5.0 [facility] [place] Comment [place]: Performed By: #### B G #### [place] [address] Sodium [Moles/Vol] 140 mmol/L Normal 136-145 [facility] ([place] Comment on above: Performed By: #### B G #### [place] [phone] Total Protein 5.7 G/dL Normal 5.7-8.2 [facility] ([place]) Comment on above: Result Comment: No te - New Reference Range in effect 20 Performed By: #### B G #### [address] [address] Urea nitrogen [Mass/Vol] 27.0 mg/dL High 8.0-22.0 [facility] ([place]) Comment on above: Performed By: #### B G #### [place] [phone] LABORATORYOrdered By: Ariadna Estes on 09-03-2023 Barometric [...] Lactic Acid Lvl 1.6 mmol/L Normal 0.2-2.0 [facility] ([place] Comment on above: Performed By: #### B G #### [address] [address] MGon 09-03-2023 Magnesium [Mass/Vol] 2.3 mg/dL Normal 1.6-2.4 [facility] ([place]) Comment on above: Performed By: #### B G #### [address] [address] TROPHSon 09-03-2023 Troponin I High Sensitivity 1793.02 ng/L High 0.00-34.00 [facility] ([place] Comment on above: Performed By: #### B G #### [address] [address] Troponin I High Sensitivity 2219.13 ng/L High 0.00-34.00 [facility] ([place] Comment on above: Performed By: #### B G #### [address] [address] .Auto Diffon 09-02-2023 Basophil, Absolute 0.0 10 3/mcL Normal 0.0-0.3 [facility] ([place]) Comment on above: Performed By: #### L AC #### [address] [address] Basophils/100 WBC (Bld) 0.6 % Normal 0.0-2.5 [facility] ([place] Comment on above: Performed By: #### L AC #### [address] [address] Eosinophil, Absolute 0.0 10 3/mcL Normal 0.0-0.7 [facility] ([place]) Comment on above: Performed By: #### L AC #### [address] [address] Eosinophils/100 WBC (Bld) 0.0 % Normal 0.0-6.0 [facility] ([place] Comment on above: Performed By: #### L AC #### [address] [address] Lymphocyte, Absolute 0.6 10 3/mcL Low 0.9-4.3 [facility] ([place]) Comment on above: Performed By: #### L AC #### [address] [address] Lymphocytes/100 WBC (Bld) 8.0 % Low 20.0-40.0 [facility] ([place] Comment on above: Performed By: #### L AC #### [address] [address] Monocyte, Absolute 0.2 10 3/mcL Normal 0.1-1.4 [facility] ([place]) Comment on above: Performed By: #### L AC #### [address] [address] Monocytes/100 WBC (Bld) 2.7 % Normal 2.0-13.0 [facility] ([place] Comment on above: Performed By: #### L AC #### [address] [address] Neutrophils/100 WBC (Bld) 88.7 % High 50.0-75.0 [facility] ([place] Comment on above: Performed By: #### L AC #### [address] [address] Basophil, Absolute 0.0 10 3/mcL Normal 0.0-0.3 [facility] ([place]) Comment on above: Performed By: #### P HOS, TROPHS, MG, CBC, ADIFF, ANEU, MYCO, CMP, CAION, GFR ####[address] [address] Basophils/100 WBC (Bld) 0.4 % Normal 0.0-2.5 [facility] ([place] Comment on above: Performed By: #### P HOS, TROPHS, MG, CBC, ADIFF, ANEU, MYCO, CMP, CAION, GFR ####[address] [address] Eosinophil, Absolute 0.0 10 3/mcL Normal 0.0-0.7 [facility] ([place] Comment on above: Performed By: #### P HOS, TROPHS, MG, CBC, ADIFF, ANEU, MYCO, CMP, CAION, GFR ####[address] [address] Eosinophils/100 WBC (Bld) 0.0 % Normal 0.0-6.0 [facility] ([place] Comment on above: Performed By: #### P HOS, TROPHS, MG, CBC, ADIFF, ANEU, MYCO, CMP, CAION, GFR ####[address] [address] Lymphocyte, Absolute 0.3 10 3/mcL Low 0.9-4.3 [facility] ([place] Comment on above: Performed By: #### P HOS, TROPHS, MG, CBC, ADIFF, ANEU, MYCO, CMP, CAION, GFR ####[address] [address] Lymphocytes/100 WBC (Bld) 3.6 % Low 20.0-40.0 [facility] ([place] Comment on above: Performed By: #### P HOS, TROPHS, MG, CBC, ADIFF, ANEU, MYCO, CMP, CAION, GFR ####[address] [address] Monocyte, Absolute 0.2 10 3/mcL Normal 0.1-1.4 [facility] ([place] Comment on above: Performed By: #### P HOS, TROPHS, MG, CBC, ADIFF, ANEU, MYCO, CMP, CAION, GFR ####[address] [address] Monocytes/100 WBC (Bld) 1.9 % Low 2.0-13.0 [facility] ([place] Comment on above: Performed By: #### P HOS, TROPHS, MG, CBC, ADIFF, ANEU, MYCO, CMP, CAION, GFR ####[address] [address] Neutrophils/100 WBC (Bld) 94.1 % High 50.0-75.0 [facility] ([place] Comment on above: Performed By: #### P HOS, TROPHS, MG, CBC, ADIFF, ANEU, MYCO, CMP, CAION, GFR ####[address] [address] .GFRon 09-02-2023 GFR Non- >60 Normal [facility] ([place] Comment on above: Result Comment: GFR Population [...] CBC, ADIFF, ANEU, MYCO, CMP, CAION, GFR ####[place] [address] GFR >60 Normal [facility] ([place]) Comment on above: Result Comment: GFR Population [...] CBC, ADIFF, ANEU, MYCO, CMP, CAION, GFR ####[place] [address] .NEUABSon 09-02-2023 Neutrophil, Absolute 6.8 10 3/mcL Normal 2.3-8.1 [facility] ([place]) Comment on above: Performed By: #### L AC #### [place] [address] Neutrophil, Absolute 9.1 10 3/mcL High 2.3-8.1 [facility] ([place] Comment on above: Performed By: #### P HOS, TROPHS, MG, CBC, ADIFF, ANEU, MYCO, CMP, CAION, GFR ####[place] [address] APTTon 09-02-2023 aPTT Coag (Bld) [Time] 67.5 s High 25.0-35.0 [facility] ([place]) Comment on above: Result Comment: For Heparin anticoagulation therapy, the recommended therapeutic range is: 54-77 seconds (APTT Correlation with Anti-Xa therapeutic range of 0.3-0.7 units/ml). PLEASE REFERENCE THE PHARMACY PROTOCOL FOR DOSING. Heparin dose (APTT) Heparin IV Normal [facility] ([place]) aPTT Coag (Bld) [Time] 27.8 s Normal 25.0-35.0 [facility] ([place]) Comment on above: Result Comment: For Heparin anticoagulation therapy, the recommended therapeutic range is: 54-77 seconds (APTT Correlation with Anti-Xa therapeutic range of 0.3-0.7 units/ml). PLEASE REFERENCE THE PHARMACY PROTOCOL FOR DOSING. Heparin dose (APTT) Heparin IV Normal [facility] ([place]) on 09-02-2023 Barometric Pressure 714 mmHg Normal [facility] ([place] Comment on above: Performed By: #### B G #### [address] [address] Base excess Calc (Bld) [Moles/Vol] 1.5 mmol/L Normal [facility] ([place] Comment on above: Performed By: #### B G #### [address] [address] CO2 [Moles/Vol] 27.8 mmol/L Normal 22.0-30.0 [facility] ([place] Comment on above: Performed By: #### B G #### [address] [address] HCO3 (Bld) [Moles/Vol] 26.5 mmol/L Normal 21.0-29.0 [facility] ([place] Comment on above: Performed By: #### B G #### [address] [address] Oxygen (Bld) [Partial pressure] 130.5 mm[Hg] High 74.0-108.0 [facility] ([place] Comment on above: Performed By: #### B G #### [address] [address] Oxygen saturation in Blood 98.7 % High 92.0-96.0 [facility] ([place] Comment on above: Performed By: #### B G #### [address] [address] pCO2 43.2 mmHg Normal 32.0-46.0 [facility] ([place] Comment on above: Performed By: #### B G #### [place] [address] pH (Bld) 7.406 [pH] Normal 7.380-7.460 [facility] ([place] Comment on above: Performed By: #### B G #### [place] [address] CAIONon 09-02-2023 Calcium Ionized 0.99 mmol/L Low 1.12-1.32 [facility] ([place] Comment on above: Performed By: #### P HOS, TROPHS, MG, CBC, ADIFF, ANEU, MYCO, CMP, CAION, GFR ####[place] [address] CBCon 09-02-2023 Erythrocyte distribution width (RBC) [Ratio] 14.4 % Normal 11.5-15.5 [facility] ([place] Comment on above: Performed By: #### L AC #### [place] [address] Hematocrit (Bld) [Volume fraction] 39.9 % Normal 34.0-46.0 [facility] ([place] Comment on above: Performed By: #### L AC #### [place] [address] Hgb 13.4 G/dL Normal 12.0-16.0 [facility] ([place] Comment on above: Performed By: #### L AC #### [place] [address] MCH (RBC) [Entitic mass] 30.8 pg Normal 27.0-33.0 [facility] ([place] Comment on above: Performed By: #### L AC #### [place] [address] MCHC 33.6 G/dL Normal 32.0-36.0 [facility] ([place] Comment on above: Performed By: #### L AC #### [address] [address] MCV (RBC) [Entitic vol] 91.5 fL Normal 80.0-99.0 [facility] ([place] Comment on above: Performed By: #### L AC #### [address] [address] Platelet 278 10 3/mcL Normal 150-450 [facility] ([place] Comment on above: Performed By: #### L AC #### [address] [address] Platelet mean volume (Bld) [Entitic vol] 7.2 fL Normal 6.6-10.5 [facility] ([place] Comment on above: Performed By: #### L AC #### [address] [address] RBC 4.36 10 6/mcL Normal 4.10-5.30 [facility] ([place] Comment on above: Performed By: #### L AC #### [address] [address] WBC 7.7 10 3/mcL Normal 4.5-10.8 [facility] ([place] Comment on above: Performed By: #### L AC #### [address] [address] Erythrocyte distribution width (RBC) [Ratio] 14.5 % Normal 11.5-15.5 [facility] ([place] Comment on above: Performed By: #### P HOS, TROPHS, MG, CBC, ADIFF, ANEU, MYCO, CMP, CAION, GFR ####[address] [address] Hematocrit (Bld) [Volume fraction] 42.1 % Normal 34.0-46.0 [facility] ([place] Comment on above: Performed By: #### P HOS, TROPHS, MG, CBC, ADIFF, ANEU, MYCO, CMP, CAION, GFR ####[address] [address] Hgb 13.8 G/dL Normal 12.0-16.0 [facility] ([place] Comment on above: Performed By: #### P HOS, TROPHS, MG, CBC, ADIFF, ANEU, MYCO, CMP, CAION, GFR ####[place] [address] MCH (RBC) [Entitic mass] 30.3 pg Normal 27.0-33.0 [facility] ([place] Comment on above: Performed By: #### P HOS, TROPHS, MG, CBC, ADIFF, ANEU, MYCO, CMP, CAION, GFR ####[place] [address] MCHC 32.9 G/dL Normal 32.0-36.0 [facility] ([place] Comment on above: Performed By: #### P HOS, TROPHS, MG, CBC, ADIFF, ANEU, MYCO, CMP, CAION, GFR ####[place] [address] MCV (RBC) [Entitic vol] 92.3 fL Normal 80.0-99.0 [facility] ([place] Comment on above: Performed By: #### P HOS, TROPHS, MG, CBC, ADIFF, ANEU, MYCO, CMP, CAION, GFR ####[place] [address] Platelet 314 10 3/mcL Normal 150-450 [facility] ([place] Comment on above: Performed By: #### P HOS, TROPHS, MG, CBC, ADIFF, ANEU, MYCO, CMP, CAION, GFR ####[place] [address] Platelet mean volume (Bld) [Entitic vol] 7.3 fL Normal 6.6-10.5 [facility] ([place] Comment on above: Performed By: #### P HOS, TROPHS, MG, CBC, ADIFF, ANEU, MYCO, CMP, CAION, GFR ####[place] [address] RBC 4.56 10 6/mcL Normal 4.10-5.30 [facility] ([place] Comment on above: Performed By: #### P HOS, TROPHS, MG, CBC, ADIFF, ANEU, MYCO, CMP, CAION, GFR ####[address] [address] WBC 9.6 10 3/mcL Normal 4.5-10.8 [facility] ([place] Comment on above: Performed By: #### P HOS, TROPHS, MG, CBC, ADIFF, ANEU, MYCO, CMP, CAION, GFR ####[address] [address] CMPon 09-02-2023 Albumin Level 3.3 G/dL Normal 3.2-4.8 [facility] ([place] Comment on above: Performed By: #### P HOS, TROPHS, MG, CBC, ADIFF, ANEU, MYCO, CMP, CAION, GFR ####[place] [address] Albumin/Globulin [Mass ratio] 0.9 {ratio} Normal 0.9-1.6 [facility] ([place] Comment on above: Performed By: #### P HOS, TROPHS, MG, CBC, ADIFF, ANEU, MYCO, CMP, CAION, GFR ####[address] [address] ALP [Catalytic activity/Vol] 130 U/L High 38-126 [facility] ([place] Comment on above: Performed By: #### P HOS, TROPHS, MG, CBC, ADIFF, ANEU, MYCO, CMP, CAION, GFR ####[address] [address] ALT [Catalytic activity/Vol] 226 U/L High 10-49 [facility] ([place] Comment on above: Performed By: #### P HOS, TROPHS, MG, CBC, ADIFF, ANEU, MYCO, CMP, CAION, GFR ####[address] [address] AST [Catalytic activity/Vol] 230 U/L High 8-34 [facility] ([place] Comment on above: Performed By: #### P HOS, TROPHS, MG, CBC, ADIFF, ANEU, MYCO, CMP, CAION, GFR ####[address] [address] Bili Total 0.40 mg/dL Normal 0.20-1.20 [facility] ([place]) Comment on above: Result Comment: Use of this assay is not recommended for patients undergoing treatment with eltrombopag due to the potential for falsely elevated results. Performed By: #### P HOS, TROPHS, MG, CBC, ADIFF, ANEU, MYCO, CMP, CAION, GFR ####[place] [address] BUN/Creatinine Ratio 25.6 ratio High 10.0-22.0 [facility] ([place]) Comment on above: Performed By: #### P HOS, TROPHS, MG, CBC, ADIFF, ANEU, MYCO, CMP, CAION, GFR ####[place] [address] Calcium [Mass/Vol] 8.0 mg/dL Low 8.7-10.4 [facility] ([place]) Comment on above: Performed By: #### P HOS, TROPHS, MG, CBC, ADIFF, ANEU, MYCO, CMP, CAION, GFR ####[place] [address] Chloride [Moles/Vol] 106 mmol/L Normal 98-110 [facility] ([place]) Comment on above: Performed By: #### P HOS, TROPHS, MG, CBC, ADIFF, ANEU, MYCO, CMP, CAION, GFR ####[place] [id number] CO2 [Moles/Vol] 28 mmol/L Normal 22-32 [facility] ([place] Comment on above: Performed By: #### P HOS, TROPHS, MG, CBC, ADIFF, ANEU, MYCO, CMP, CAION, GFR ####[place] [address] Creatinine [Mass/Vol] 0.78 mg/dL Normal 0.50-1.20 [facility] [place] Comment [place] above: Performed By: #### P HOS, TROPHS, MG, CBC, ADIFF, ANEU, MYCO, CMP, CAION, GFR ####[place] [address] Electrolyte Balance 6.0 mEq/L Normal 4.0-15.0 [facility] ([place] Comment on above: Performed By: #### P HOS, TROPHS, MG, CBC, ADIFF, ANEU, MYCO, CMP, CAION, GFR ####[address] [address] Globulin 3.5 G/dL Normal 1.5-3.8 [facility] ([place] Comment on above: Performed By: #### P HOS, TROPHS, MG, CBC, ADIFF, ANEU, MYCO, CMP, CAION, GFR ####[address] [address] Glucose [Mass/Vol] 165 mg/dL High 82-115 [facility] ([place] Comment on above: Performed By: #### P HOS, TROPHS, MG, CBC, ADIFF, ANEU, MYCO, CMP, CAION, GFR ####[address] [address] Potassium [Moles/Vol] 2.9 mmol/L Low 3.5-5.0 [facility] [place] Comment [place] above: Performed By: #### P HOS, TROPHS, MG, CBC, ADIFF, ANEU, MYCO, CMP, CAION, GFR ####[address] [address] Sodium [Moles/Vol] 140 mmol/L Normal 136-145 [facility] ([place] Comment on above: Performed By: #### P HOS, TROPHS, MG, CBC, ADIFF, ANEU, MYCO, CMP, CAION, GFR ####[address] [address] Total Protein 6.8 G/dL Normal 5.7-8.2 [facility] ([place]) Comment on above: Result Comment: No te - New Reference Range in effect 20 Performed By: #### P HOS, TROPHS, MG, CBC, ADIFF, ANEU, MYCO, CMP, CAION, GFR ####[address] [address] Urea nitrogen [Mass/Vol] 20.0 mg/dL Normal 8.0-22.0 [facility] ([place] Comment on above: Performed By: #### P HOS, TROPHS, MG, CBC, ADIFF, ANEU, MYCO, CMP, CAION, GFR ####[place] [address] HEPACon 09-02-2023 Hep A IgM Ab Non-Reactive Normal Non-Reactiv e [facility] ([place] Comment on above: Performed By: #### L AC #### [place] [address] Hep A IgM Ab Int Normal [facility] ([place]) Comment on above: Result Comment: No s erological evidence of a current Hepatitis A infection. See Interp Performed By: #### L AC #### [place] [address] Hep B Core IgM Ab Non-Reactive Normal Non-Reacti v [facility] ([place] Comment on above: Performed By: #### L AC #### [place] [address] Hep B Core IgM Ab Int Normal [facility] [place] Comment on above: Result Comment: Samp les with a value < 0.80 Index are considered nonreactive (negative) for IgM antibodies to hepatitis B core antigen. See Interp Performed By: #### L AC #### [place] [address] Hep C Ab Non-Reactive Normal Non-Reactiv [facility] ([place] Comment on above: Performed By: #### L AC #### [place] [address] Hep C Ab Int Normal [facility] ([place]) Comment on above: Result Comment: Nonr eactive: Samples with a value < 0.80 are considered nonreactive (negative) for antibodies to HCV. A negative test result does not exclude the possibility of exposure to or infection with HCV. HCV antibodies may be undetectable in some stages of the infection and in some clinical conditions. See Interp Performed By: #### L AC #### [place] [address] Hep B Surf Ag Non-Reactive Normal Non-Reactiv e [facility] ([place]) Comment on above: Performed By: #### L #### [facility] [address] [place] [address] LABORATORYOrdered By: Ariadna Estes on 09-02-2023 Lactate [...] Comment on above: Interpretive Data: T jt [employer] (CHEST, 1992, [id number]) recommended therapeutic range for oral anticoagulant therapy is: LOW RISK: Prophylaxis of venous thrombosis INR: 2.0-3.0 Treatment of pulmonary embolism 2.0-3.0 Prevention of systemic embolism 2.0-3.0 HIGH RISK: Mechanical prosthetic valves 2.5-3.5 LABORATORYOrdered By: Agnieszka ocx on 09-02-2023 M. pneumoniae IgM IA Ql [...] Lactic Acid Lvl 1.7 mmol/L Normal 0.2-2.0 [facility] ([place] Comment on above: Performed By: #### L AC ####[facility] [place] [address] Lactic Acid Lvl 2.8 mmol/L High 0.2-2.0 [facility] ([place]) Comment on above: Performed By: #### L AC #### [facility] [address] [place] [address] Lactic Acid Lvl 2.5 mmol/L High 0.2-2.0 [facility] ([place]) Comment on above: Performed By: #### L AC #### [facility] [address] [place] [address] Lactic Acid Lvl 1.8 mmol/L Normal 0.2-2.0 [facility] ([place]) Comment on above: Performed By: #### L AC ####[facility] [place] [address] MGon 09-02-2023 Magnesium [Mass/Vol] 2.4 mg/dL Normal 1.6-2.4 [facility] ([place]) Comment on above: Performed By: #### P HOS, TROPHS, MG, CBC, ADIFF, ANEU, MYCO, CMP, CAION, GFR ####[facility] [facility] [place] [address] No Panel Informationon 09-02 Microscopic examination of blood, culture Culture has been received in lab and is no growth to date. Routine cultures are held for 5 days. [facility] Culture Urine No growth at 48 hours. [facility] No Panel InformationOrdered By: Sandy Davis on 09-02-2023 Culture Respiratory with Gram Stain Normal respiratory renu present at 48 hours Sensitivity testing not indicated [facility] Comment on above: Requests for Mycopla sma, Legionella, Fungi, Mycobacteria, Chlamydia, and Viruses require ordering of those individual tests. GS Rare Polymorphonucle ar cells Rare Gram Positive Cocci Rare Gram Positive Rods [facility] Comment on above: Requests for Mycopla sma, Legionella, Fungi, Mycobacteria, Chlamydia, and Viruses require ordering of those individual tests. PBNPon 09-02-2023 Natriuretic peptide B (Bld) [Mass/Vol] 5863 pg/mL High 0-900 [facility] ([place]) Comment on above: Result Comment: NT-p roBNP results of less than 300 pg/mL effectively rules out acute congestive heart failure with 99% negative predictive value. Performed By: #### P BNP #### [facility] [address] [place] [address] PHOSon 09-02-2023 Phosphate [Mass/Vol] 3.6 mg/dL Normal 2.4-5.1 [facility] ([place]) Comment on above: Result Comment: No te - New Reference Range in effect 20 Performed By: #### P HOS, TROPHS, MG, CBC, ADIFF, ANEU, MYCO, CMP, CAION, GFR ####[place] [id number] [place] [address] PROon 09-02-2023 INR Coag (PPP) [Relative time] 1.0 {INR} Normal [facility] ([place]) Comment on above: Result Comment: The [employer] (CHEST, 1992, 102:312S-25S) recommended therapeutic range for oral anticoagulant therapy is: LOW RISK: Prophylaxis of venous thrombosis INR: 2.0-3.0 Treatment of pulmonary embolism 2.0-3.0 Prevention of systemic embolism 2.0-3.0 HIGH RISK: Mechanical prosthetic valves 2.5-3.5 Performed By: #### L AC #### [place] [address] PT Coag (PPP) [Time] 11.8 s Normal 9.0-14.2 [facility] ([place]) Comment on above: Result Comment: Effe ctive 05/06/08, Protime results may be affected by some antibiotics (i.e. Ciprofloxacin, Azithromycin, Bactrim) which may potentiate the action of oral anticoagulants, with further increases in Protime/INR. Performed By: #### L AC #### [place] [address] TROPHSon 09-02-2023 Troponin I High Sensitivity 3010.17 ng/L High 0.00-34.00 [facility] ([place]) Comment on above: Performed By: #### L AC #### [address] [address] Troponin I High Sensitivity 2152.97 ng/L High 0.00-34.00 [facility] ([place]) Comment on above: Performed By: #### T ALFIE ####[address] [address] Troponin I High Sensitivity 1582.01 ng/L High 0.00-34.00 [facility] ([place]) Comment on above: Performed By: #### L AC #### [place] [address] [place] [address] Troponin I High Sensitivity 926.56 ng/L High 0.00-34.00 [facility] ([place]) Comment on above: Performed By: #### P HOS, TROPHS, MG, CBC, ADIFF, ANEU, MYCO, CMP, CAION, GFR ####[facility] [place] [address] US ABDOMEN LIMITEDon 023 US ABDOMEN LIMITED ORIGINAL EXAMINATION: LIMITED ABDOMINAL CUWOIXAMYN39/11/2023 12:19 pm COMPARISON: None HISTORY: ORDERING SYSTEM [...] 09/02/2023 2:27:43 PM Ordering Provider: FRANCESCA Soto [facility] ([place]) XR CHEST 1 VIEWon 09-02-2023 XR CHEST [...] 09/02/2023 8:06:12 AM Ordering Provider: FRANCESCA Soto [facility] ([place]) Low Dose CT Lung Screeningon 06-23-[address] Lung Screening [facility] [address] [place] [address] Lung Screening MR#: [id number] Acct: [id number] Name: ZABRINA HSU Rep #: [id number] : 1955 F 66 From: Stephon Levine MD PCP: SEUN Alvarez Status: REG CLI Study: Low Dose CT Lung Screening Date of Exam: 06/23 Exam# [id number] Ordering Dr: Eleazar Valle DO STUDY: LOW [...] , CC: SEUN Ozuna; Dr. Eleazar Valle, Fill Technician: Signed Normal [facility] 12 Lead EKG performed by [facility] on 06-16-2021 12 Lead EKG performed by [facility] [address] [place] [address] 12 Lead EKG performed by [facility] 06/16/21 1441 MR#: [id number] Acct: [id number] Name: ZABRINA HSU Rep #: [id number] : 1955 66 From: Paul Chawla MD Attending Dr: Dr. Paul Chawla MD Status: DEP A MB Ordering Dr: Paul Chawla MD Date: 06/16/21 Location: [facility] Sex: F C Admitted: BMS/12 Lead EKG performed by [facility] ECG Report Interpretation ---Sinus Rhythm WITHIN NORMAL LIMITSElectronically signed on 06/17/2021 at 08:45 by Paul Chawla [employer] Software Version [id number] 06/17/21 0847 Date Paul Chawla MD CC: SEUN Ozuna Date Dictated: 06/16/21 1441 Date Transcribed: 06/16/211440 Fill Technician: CO Signed Normal [facility] Cardiology Visit Reporton Cardiology Visit Report [facility] [address] [place], [place] [address] OFFICE VISIT Date of Service: 06/16/21 MR#: [id number] Acct: [id number] Name: ZABRINA HSU Rep #: [id number] : 1955 Provider: Dr. 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 Normal [facility] 6 Minute Walk Teston 021 6 Minute Walk Test y [facility] Pulmonary Services/Neurology [address] [place] [address] MR#: [id number] Acct: [id number] Name: ZABRINA HSU Rep #: [id number] : 1955 65 From: Eleazar Valle DO Referring Dr: Eleazar Valle DO Status: REG CLI Location: PSN Date: Sex: F C PSN 6 Minute Walk Test - 6 Minute Walk Test 6 Minute Walk Test: 6 Minute Walk Test PSN:6-Minute Walk Test Start: 01/26/21 11:33 Freq: Status: Active Protocol: RESP.[id number] Document 01/26/21 11:15 HJ (Rec: 01/26/21 11:36 [id number]) 6 Minute Walk Test Date Performed 01/26/21 [...] Date Dictated: 01/26/21 1245 Date Transcribed: 01/26/211244 Fill Technician: Dr. Eleazar Valle DO Signed Normal [facility] Pulmonary Function Teston Pulmonary Function Test [facility]monary Services/Neurology [address] [place] [address] MR#: [id number] Acct: [id number] Name: ZABRINA HSU Rep #: [id number] : 1955 65 From: Eleazar Valle DO Referring Dr: Eleazar Valle DO Status: REG CLI Location: [facility] Date: 01/25/21 Sex: F C INTRODUCTION: The [...] DO Date Dictated: 01/26/2153 Date Transcribed: 01/26/21652 Fill Technician: RACHANA Signed Normal [facility] Pulmonary Visit Reporton Pulmonary Visit Report [facility] [place] [address] [place] [address] OFFICE VISIT Date of Service: 12/23/20 MR#: [id number] Acct: [id number] Name: ZABRINA HSU Rep #: [id number] : 1955 Provider: Dr. Eleazar Valle DO Age/Sex: 65/F Location: [facility] Status: Signed Assessment Plan 1. COPD (chronic [...] cigarettes daily. 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 The patient has lived in [place] her entire life. She does currently keep [...] PO (more content not included)... Normal [facility] Coronavirus 2019on 1 COVID 19 Result CRACK OFF PERSON Normal Negative for COVID19 (SARS CoV2) by PCR. [facility] Comment on above: Result Comment: Nega tive for This test was developed and its performance characteristics determined by [facility] [place]. This test has been authorized by FDA [...] developed and its performance characteristics determined by [facility] [place]. This test has been authorized by FDA [...] developed and its performance characteristics determined by [facility] [place]. This test has been authorized by FDA under an Emergency Use Authorization (EUA). This test has been validated in accordance with the FDA's Guidance Document Policy for Diagnostics Testing in Laboratories Certified to Perform High Complexity Testing under CLIA prior to Emergency use Authorization for Coronavirus Disease 2019 during the Public Health Emergency issued on December 21, 2019. COVID 19 Source CRACK OFF PERSON Normal [facility] Comment on above: Result Comment: Naso pharyngeal Corrected on 10/31 AT 0655: Previously reported as NASOPHARYNGEAL Swab Corrected on 10/31 AT 0655: Previously reported as NASOPHARYNGEAL Office Visit: new patienton 01-26-2017 Documentation of current medications (procedure) Done Invalid Interpretation Code [facility] Work Phone: Smoking cessation education (procedure) yes Invalid Interpretation Code [employer] Work Phone: Tobacco smoking status NHIS Never Invalid Interpretation Code [facility] Work Phone: Tobacco use [facility] Current every day smoker Invalid Interpretation Code [facility] Work Phone: [phone] Replaced Document: Tremayne Carteron 01-12-2017 electrocardiogram interpretation Sinus Bradycardia - Negative T-waves - Anterior ischemia. ABNORMAL Invalid Interpretation Code [employer] Work Phone: [phone] GE use only - for [employer] import when terms are not otherwise specified 443 ms Invalid Interpretation Code [facility] Work Phone: [phone] P wave axis, electrocardiogram 76 deg Invalid Interpretation Code [employer] Work Phone: [phone] FL interval, electrocardiogram 144 ms Invalid Interpretation Code [employer] Work Phone: [phone] Pulse (Heart Rate) 57 /min Invalid Interpretation Code [employer] Work Phone: [phone] QRS axis, electrocardiogram 65 deg Invalid Interpretation Code [employer] Work Phone: [phone] QRS duration, electrocardiogram 80 ms Invalid Interpretation Code [employer] Work Phone: [phone] QT interval, electrocardiogram new path ms Invalid Interpretation Code [employer] Work Phone: [phone] T wave axis, electrocardiogram 1 deg Invalid Interpretation Code [employer] Work Phone: [phone] Clinical Lists Update: Prelo cotton grader 01-06-2017 Left ventricular Ejection fraction 66 % Invalid Interpretation Code [employer] Work Phone: [phone] Vital Signs Date Time Vital Sign Value Performing Clinician Facility 06-18-2025 03:58-0400 SaO2% (BldA) [Mass fraction] 97.1 % JHONNY VALENCIA MD [facility] 06-17-2025 04:13-0400 SaO2% (BldA) [Mass fraction] 97.7 % JHONNY VALENCIA MD [facility] 06-16-2025 11:07-0400 SaO2% (BldA) [Mass fraction] 97.1 % JHONNY VALENCIA MD [facility] 11-09-2024 07:16-0500 Body temperature 98.06 [degF] JHONNY VALENCIA MD [facility] 11-09-2024 07:16-0500 Diastolic Blood Pressure Non-Invasive 72 mm[Hg] JHONNY VALENCIA MD [facility] 11-09-2024 07:16-0500 Heart rate 64 /min JHONNY VALENCIA MD [facility] 11-09-2024 07:16-0500 Respiratory rate 20 /min JHONNY VALENCIA MD [facility] 11-09-2024 07:16-0500 Systolic Blood Pressure Non-Invasive 161 mm[Hg] JHONNY VALENCIA MD [facility] 11-09-2024 06:53-0500 Heart rate 72 /min JHONNY VALENCIA MD [facility] 11-09-2024 06:53-0500 Respiratory rate 20 /min JHONNY VALENCIA MD [facility] 11-09-2024 06:22-0500 Heart rate 63 /min JHONNY VALENCIA MD [facility] 11-09-2024 04:03-0500 Body temperature 98.42 [degF] JHONNY VALENCIA MD [facility] 11-09-2024 04:03-0500 Diastolic Blood Pressure Non-Invasive 74 mm[Hg] JHONNY VALENCIA MD [facility] 11-09-2024 04:03-0500 Heart rate 63 /min JHONNY VALENCIA MD [facility] 11-09-2024 04:03-0500 Mean blood pressure 97 mm[Hg] JHONNY VALENCIA MD [facility] 11-09-2024 04:03-0500 Respiratory rate 22 /min JHONNY VALENCIA MD [facility] 11-09-2024 04:03-0500 Systolic Blood Pressure Non-Invasive 162 mm[Hg] JHONNY VALENCIA MD [facility] 11-09-2024 02:46-0500 Heart rate 63 /min JHONNY VALENCIA MD [facility] 11-09-2024 00:45-0500 Blood Pressure Cuff Size JHONNY VALENCIA MD [facility] 11-09-2024 00:45-0500 Blood Pressure Location JHONNY VALENCIA MD [facility] 11-09-2024 00:45-0500 Body temperature 98.06 [degF] JHONNY VALENCIA MD [facility] 11-09-2024 00:45-0500 Diastolic Blood Pressure Non-Invasive 63 mm[Hg] JHONNY VALENCIA MD [facility] 11-09-2024 00:45-0500 Heart rate 65 /min JOHNNY VALENCIA MD [facility] 11-09-2024 00:45-0500 Reason For Taking VItal Signs JHONNY VALENCIA MD [facility] 11-09-2024 00:45-0500 Systolic Blood Pressure Non-Invasive 133 mm[Hg] JHONNY VALENCIA MD [facility] 11-08-2024 19:18-0500 Blood Pressure Cuff Size JHONNY VALENCIA MD [facility] 11-08-2024 19:18-0500 Blood Pressure Location JHONNY VALENCIA MD [facility] 11-08-2024 19:18-0500 Reason For Taking VItal Signs JHONNY VALENCIA MD [facility] 11-08-2024 14:34-0500 Reason For Taking VItal Signs JHONNY VALENCIA MD [facility] 11-08-2024 11:03-0500 Blood Pressure Cuff Size JHONNY VALENCIA MD [facility] 11-08-2024 11:03-0500 Blood Pressure Location JHONNY VALENCIA MD [facility] 11-08-2024 11:03-0500 Blood Pressure Method JHONNY VALENCIA MD [facility] 11-08-2024 07:29-0500 Blood Pressure Method JHONNY VALENCIA MD [facility] 11-08-2024 06:19-0500 Heart rate 70 /min JHONNY VALENCIA MD [facility] 11-07-2024 23:30-0500 Heart rate 54 /min JHONNY VALENCIA MD [facility] 11-07-2024 23:30-0500 Mean blood pressure 98 mm[Hg] JHONNY VALENCIA MD [facility] 11-07-2024 12:22-0500 Mean blood pressure 80 mm[Hg] JHONNY VALENCIA MD [facility] 11-07-2024 03:30-0500 Body temperature 97.34 [degF] JHONNY VALENCIA MD [facility] 11-06-2024 23:33-0500 Body temperature 97.52 [degF] JHONNY VALENCIA MD [facility] 11-06-2024 03:27-0500 Body temperature 98.06 [degF] JHONNY VALENCIA MD [facility] 11-06-2024 03:24-0500 SaO2% (BldA) [Mass fraction] 97.4 % JHONNY VALENCIA MD [facility] 11-05-2024 08:33-0500 Heart rate 107 /min JHONNY VALENCIA MD [facility] 11-05-2024 03:15-0500 SaO2% (BldA) [Mass fraction] 94.7 % JHONNY VALENCIA MD [facility] 11-04-2024 12:29-0500 SaO2% (BldA) [Mass fraction] 98.1 % JHONNY VALENCIA MD [facility] 11-04-2024 11:10-0500 Body height 157.5 cm JHONNY VALENCIA MD [facility] 11-04-2024 11:10-0500 Body weight 54.5 kg JHONNY VALENCIA MD [facility] 11-04-2024 11:10-0500 Body weight 21.97 kg/m2 JHONNY VALENCIA MD [facility] 10-03-2024 14:26-0500 Body height 162.6 cm Susan Fontana SNUFF CONTAINER INSPECTOR-MATERIALS RESEARCH ENGINEER Work Phone: [facility] 10-03-2024 14:26-0500 Body mass index (BMI) [Ratio] 18.02 kg/m2 Susan Callahanman SNUFF CONTAINER INSPECTOR-MATERIALS RESEARCH ENGINEER Work Phone: [facility] 10-03-2024 14:26-0500 Body weight 47.63 kg Susan Callahanman SNUFF CONTAINER INSPECTOR-MATERIALS RESEARCH ENGINEER Work Phone: [facility] 10-03-2024 14:26-0500 Diastolic blood pressure 81 mm[Hg] Susan Callahanman SNUFF CONTAINER INSPECTOR-MATERIALS RESEARCH ENGINEER Work Phone: [facility] 10-03-2024 14:26-0500 Heart rate 60 /min Susan Callahanman SNUFF CONTAINER INSPECTOR-MATERIALS RESEARCH ENGINEER Work Phone: [facility] 10-03-2024 14:26-0500 Systolic blood pressure 195 mm[Hg] Susan Marizol SNUFF CONTAINER INSPECTOR-MATERIALS RESEARCH ENGINEER Work Phone: [facility] 09-18-2023 12:02-0500 Body height 162.6 cm Elvin Blanc PA-C Work Phone: [facility] 09-18-2023 12:02-0500 Body mass index (BMI) [Ratio] 17.7 kg/m2 Elvin Newbill PA-C Work Phone: [facility] 09-18-2023 12:02-0500 Body temperature 97.81 [degF] Elvin Newbill PA-C Work Phone: [facility] 09-18-2023 12:02-0500 Body weight 46.77 kg Elvin Newbill PA-C Work Phone: [phone] [place] [address] 09-18-2023 12:02-0500 Diastolic blood pressure 75 mm[Hg] Elvin Newbill PA-C Work Phone: [phone] [place] [address] 09-18-2023 12:02-0500 Heart rate 63 /min Elvin Newbill PA-C Work Phone: [facility] 09-18-2023 12:02-0500 SaO2% (BldA) [Mass fraction] 95 % Elvin Newbill PA-C Work Phone: [phone] [place] [address] 09-18-2023 12:02-0500 Systolic blood pressure 188 mm[Hg] Elvin Newbill PA-C Work Phone: [facility] 09-06-2023 16:00-0500 Heart rate 57 /min JHONNY VALENCIA MD [facility] 09-06-2023 14:28-0500 Body temperature 98.06 [degF] JHONNY VALENCIA MD [facility] 09-06-2023 14:28-0500 Diastolic Blood Pressure Non-Invasive 64 mm[Hg] JHONNY VALENCIA MD [facility] 09-06-2023 14:28-0500 Heart rate 60 /min JHONNY VALENCIA MD [facility] 09-06-2023 14:28-0500 Reason For Taking VItal Signs JHONNY VALENCIA MD [facility] 09-06-2023 14:28-0500 Respiratory rate 18 /min JHONNY VALENCIA MD [facility] 09-06-2023 14:28-0500 Systolic Blood Pressure Non-Invasive 138 mm[Hg] JHONNY VALENCIA MD [facility] 09-06-2023 12:38-0500 Heart rate 69 /min JHONNY VALENCIA MD [facility] 09-06-2023 12:38-0500 Respiratory rate 20 /min JHONNY VALENCIA MD [facility] 09-06-2023 11:05-0500 Blood Pressure Method JHONNY VALENCIA MD [facility] 09-06-2023 11:05-0500 Body temperature 97.88 [degF] JHONNY VALENCIA MD [facility] 09-06-2023 11:05-0500 Diastolic Blood Pressure Non-Invasive 76 mm[Hg] JHONNY VALENCIA MD [facility] 09-06-2023 11:05-0500 Heart rate 60 /min JHONNY VALENCIA MD [facility] 09-06-2023 11:05-0500 Respiratory rate 20 /min JHONNY VALENCIA MD [facility] 09-06-2023 11:05-0500 Systolic Blood Pressure Non-Invasive 138 mm[Hg] JHONNY VALENCIA MD [facility] 09-06-2023 08:50-0500 Heart rate 66 /min JHONNY VALENCIA MD [facility] 09-06-2023 08:45-0500 Blood Pressure Cuff Size JHONNY VALENCIA MD [facility] 09-06-2023 08:45-0500 Blood Pressure Location JHONNY VALENCIA MD [facility] 09-06-2023 08:45-0500 Blood Pressure Method JHONNY VALENCIA MD [facility] 09-06-2023 08:45-0500 Diastolic Blood Pressure Non-Invasive 74 mm[Hg] JHONNY VALENCIA MD [facility] 09-06-2023 08:45-0500 Systolic Blood Pressure Non-Invasive 136 mm[Hg] JHONNY VALENCIA MD [facility] 09-06-2023 07:18-0500 Blood Pressure Cuff Size JHONNY VALENCIA MD [facility] 09-06-2023 07:18-0500 Blood Pressure Location JHONNY VALENCIA MD [facility] 09-06-2023 07:18-0500 Blood Pressure Method JHONNY VALENCIA MD [facility] 09-06-2023 07:18-0500 Body temperature 97.88 [degF] JHONNY VALENCIA MD [facility] 09-06-2023 06:37-0500 Heart rate 62 /min JHONNY VALENCIA MD [facility] 09-06-2023 04:19-0500 Blood Pressure Location JHONNY VALENCIA MD [facility] 09-05-2023 23:52-0500 Blood Pressure Cuff Size JHONNY VALENCIA MD [facility] 09-05-2023 18:31-0500 Heart rate 63 /min JHONNY VALENCIA MD [facility] 09-05-2023 09:21-0500 Heart rate 78 /min JHONNY VALENCIA MD [facility] 09-05-2023 06:56-0500 Mean blood pressure 93 mm[Hg] JHONNY VALENCIA MD [facility] 09-04-2023 16:41-0500 Heart rate 70 /min JHONNY VALENCIA MD [facility] 09-03-2023 17:31-0500 SaO2% (BldA) [Mass fraction] 94.0 % JHONNY VALENCIA MD [facility] 09-03-2023 16:26-0500 Mean blood pressure 95 mm[Hg] JHONNY VALENCIA MD [facility] 09-03-2023 15:31-0500 Mean blood pressure 95 mm[Hg] JHONNY VALENCIA MD [facility] 09-03-2023 09:08-0500 Body height 157.5 cm JHONNY VALENCIA MD [facility] 09-03-2023 09:08-0500 Body weight 45.9 kg JHONNY VALENCIA MD [facility] 09-03-2023 09:08-0500 Body weight 18.5 kg/m2 JHONNY VALENCIA MD [facility] 09-03-2023 07:10-0500 SaO2% (BldA) [Mass fraction] 96.7 % JHONNY VALENCIA MD [facility] 09-02-2023 07:27-0500 SaO2% (BldA) [Mass fraction] 98.7 % JHONNY VALENCIA MD [facility] 01-26-2017 08:20-0400 BMI (Body Mass Index) 20.77 kg/m2 Harumi DeFinis [facility] Work Phone: 01-26-2017 08:20-0400 Body [...] 08:20-0400 Pulse Oximetry 98 % Opal Brambila [facility] Work Phone: 01-26-2017 08:20-0400 Weight 54.89 kg Opal Brambila [facility] Work Phone: 01-12-2017 14:25-0400 Respiratory Rate 16 /min [facility] Work Phone: Encounters Encounter Date Encounter Type Care Provider Facility Start: 07-02-2025 ambulatory [facility] Start: 06-16-2025 End: 06-25-2025 Evaluation and management of inpatient JHONNY VALENCIA MD [facility] Start: 06-16-2025 End: 06-16-2025 Emergency department patient visit [facility] Start: 03-12-2025 ambulatory [facility] Start: 03-07-2025 End: 03-07-2025 ambulatory [facility] Start: 11-10-2024 End: 11-17-2024 ambulatory [facility] Start: 11-04-2024 End: 11-09-2024 Evaluation and management of inpatient JHONNY VALENCIA MD [facility] Start: 11-04-2024 End: 11-04-2024 Emergency department patient visit [facility] Start: 10-21-2024 End: 10-23-2024 ambulatory ALFONSO OZUNA [facility] Start: 10-09-2024 End: 10-10-2024 Emergency department patient visit ALFONSO OZUNA [facility] Start: 10-03-2024 End: 10-06-2024 Evaluation and management of inpatient ALFONSO OZUNA [facility] Start: 10-03-2024 End: 10-03-2024 ambulatory [facility] Start: 10-03-2024 End: 10-03-2024 Encounter for general adult medical examination without abnormal findings [facility] Start: 10-03-2024 End: 10-03-2024 Office outpatient visit 25 minutes Susan Sidney [facility] SNUFF CONTAINER INSPECTOR-MATERIALS RESEARCH ENGINEER Work Phone: [facility] [facility] Comment on above: Primary hypertension (Primary Dx); Congestive heart failure, unspecified HF chronicity, unspecified heart failure type; 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, unspecified vessel or lesion type; Chronic obstructive pulmonary disease, unspecified COPD type (Multi); Health maintenance examination Start: 10-03-2024 End: 10-03-2024 Patient encounter status [facility] SNUFF CONTAINER INSPECTOR-MATERIALS RESEARCH ENGINEER Work Phone: [facility] Work Phone: Start: 09-18-2023 End: 09-18-2023 Office outpatient new 45 minutes Elvin Blanc PA-C Work Phone: [facility] Comment on above: Chronic obstructive pulmonary disease, unspecified COPD type (CMS/HCC) (Primary Dx); 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 Start: 09-02-2023 End: 09-06-2023 Evaluation and management of inpatient DO FERCHO VILLASEÑOR Facility:A Start: 09-02-2023 End: 09-06-2023 Evaluation and management of inpatient JHONNY VALENCIA MD [facility] Start: 09-02-2023 ambulatory JACK CARMICHEAL DO Facili ty:[facility] Procedures Date Procedure Procedure Detail Performing Clinician Start: 06-16-2025 Urinalysis ALFONSO Díaz Comment on above: Result Comment: URIN ALYSIS Performed By: #### 2 [id number] ####[facility],[address] [place], [place] [id number] Start: 11-04-2024 Urinalysis ALFONSO Díaz Comment on above: Result Comment: URIN ALYSIS Performed By: #### 2 [id number] ####[place] [id number] Start: 09-04-2023 Echocardiography JHONNY VALENCIA MD Start: [...] or Population) (1 - 1-dose 75+ series) [facility] Start: 10-03-2024 End: 10-03-2025 CBC W Auto Differential panel - Blood CBC and Auto Differential Lab Routine 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, unspecified vessel or lesion type (Multi) Expected: 10/03/2024 (Approximate), Expires: 10/03/2025 [facility] Work Phone: Comment on above: Expected: 10/03/2024 (Approximate), Expires: 10/03/2025 Start: 10-03-2024 End: 10-03-2025 Comprehensive metabolic 2000 panel - Serum or Plasma Comprehensive Metabolic Panel Lab Routine Primary hypertension Expected: 10/03/2024 (Approximate), Expires: 10/03/2025 [facility] Work Phone: Comment on above: Expected: 10/03/2024 (Approximate), Expires: 10/03/2025 Start: 10-03-2024 End: 10-03-2025 Lipid 1996 panel - Serum or Plasma Lipid Panel Lab Routine Health maintenance examination Expected: 10/03/2024 (Approximate), Expires: 10/03/2025 [facility] Work Phone: Comment on above: Expected: 10/03/2024 (Approximate), Expires: 10/03/2025 Start: 10-03-2024 End: 10-03-2025 TSH with reflex to Free T4 if abnormal TSH with reflex to Free T4 if abnormal Lab Routine Health maintenance examination Expected: 10/03/2024 (Approximate), Expires: 10/03/2025 [facility] Work Phone: Comment on above: Expected: 10/03/2024 (Approximate), Expires: 10/03/2025 Start: 10-03-2024 End: 10-03-2025 US Heart Transthoracic Transthoracic Echo (TTE) Complete Echocardiography Routine Primary hypertension Congestive heart failure, unspecified HF chronicity, unspecified heart failure type (Multi) 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, unspecified vessel or lesion type (Multi) Expected: 10/03/2024, Expires: 10/03/2025 [facility] Work Phone: Comment on above: Expected: 10/03/2024 , Expires: 10/03/2025 Start: 09-18-2024 End: 09-18-2024 Patient encounter procedure 09/18/2024 11:30 AM EST Office Visit [facility] [address] [place] [id number] Elvin Blanc PA-C [address] [facility] [place] [address] [facility] Start: 06-23-2024 COVID-19 Vaccine ( season) COVID-19 Vaccine ( season) [facility] Start: 06-23-2024 Influenza vaccination Influenza Vacc ine (#1) [facility] Start: 09-18-2023 End: 09-18-2024 CBC panel - Blood by Automated count CBC Lab Routine Chronic obstructive pulmonary disease, unspecified COPD type (CMS/HCC) 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, unspecified vessel or lesion type (CMS/HCC) Primary hypertension Congestive heart failure, unspecified HF chronicity, unspecified heart failure type (CMS/HCC) Expected: 09/18/2023 (Approximate), Expires: 09/18/2024 [facility] Work Phone: Comment on above: Expected: 09/18/2023 (Approximate), Expires: 09/18/2024 Start: 09-18-2023 End: 09-18-2024 Comprehensive metabolic 2000 panel - Serum or Plasma Comprehensive Metabolic Panel Lab Routine Chronic obstructive pulmonary disease, unspecified COPD type (CMS/HCC) 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, unspecified vessel or lesion type (CMS/HCC) Primary hypertension Congestive heart failure, unspecified HF chronicity, unspecified heart failure type (CMS/HCC) Expected: 09/18/2023 (Approximate), Expires: 09/18/2024 [facility] Work Phone: Comment on above: Expected: 09/18/2023 (Approximate), Expires: 09/18/2024 Start: 09-18-2023 End: 09-18-2024 Lipid 1996 panel - Serum or Plasma Lipid Panel Lab Routine Chronic obstructive pulmonary disease, unspecified COPD type (CMS/HCC) 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, unspecified vessel or lesion type (CMS/HCC) Primary hypertension Congestive heart failure, unspecified HF chronicity, unspecified heart failure type (CMS/HCC) Expected: 09/18/2023 (Approximate), Expires: 09/18/2024 [facility] Work Phone: Comment on above: Expected: 09/18/2023 (Approximate), Expires: 09/18/2024 Start: 09-18-2023 End: 09-18-2024 TSH with reflex to Free T4 if abnormal TSH with reflex to Free T4 if abnormal Lab Routine Chronic obstructive pulmonary disease, unspecified COPD type (CMS/HCC) 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, unspecified vessel or lesion type (CMS/HCC) Primary hypertension Congestive heart failure, unspecified HF chronicity, unspecified heart failure type (CMS/HCC) Expected: 09/18/2023 (Approximate), Expires: 09/18/2024 [facility] Work Phone: Comment on above: Expected: 09/18/2023 (Approximate), Expires: 09/18/2024 Start: 06-23-2023 Influenza vaccination Influenza Vacc ine (#1) [facility] Start: 12-06-2021 COVID-19 Vaccine (2 - Moderna series) COVID-19 Vaccine (2 - Moderna series) [facility] Start: 04-17-2017 End: 04-17-2017 Appointment Appointment [facility] Work Phone: Start: 01-26-2017 End: 01-26-2017 CT Ldct scan for lung cancer screening CT Ldct scan for lung cancer screening [facility] Work Phone: Start: 01-26-2017 End: 01-26-2017 DMB DMB [facility] Work Phone: Start: 01-26-2017 End: 01-26-2017 Follow Up Appt 6 weeks Follow Up Appt 6 weeks [facility] Work Phone: Start: 01-26-2017 End: 01-26-2017 Pulmonary Function Test - complete Pulmonary Function Test - complete [facility] Work Phone: Start: 01-26-2017 End: 01-26-2017 Pulmonary stress test/simple Pulmonary stress testing; simple (eg, 6-minute walk) [facility] Work Phone: Start: 01-12-2017 End: 04-03-2017 Cardiac Rehab Card[facility] Re[facility] [address] [place], [address] [facility] Work Phone: Start: 01-12-2017 End: 01-12-2017 Cardiovascular stress test using treadmill Treadmill stress test (no imaging) [facility] Work Phone: Start: 01-12-2017 End: 03-24-2017 Electrocardiogram, complete EKG (In office) [facility] Work Phone: Start: 01-12-2017 End: 01-12-2017 Follow Up Appt 3 months Follow Up Appt 3 months [facility] Work Phone: Start: 01-12-2017 End: 01-12-2017 MMM MMM [facility] Work Phone: Start: 02-23-2004 Zoster Vaccines (1 of 2) Zoster Vacc dimitrios (1 of 2) [facility] Start: 1994 Screening for malign ant neoplasm of breast Mammogram [facility] Start: 02-23-1976 DTaP/Tdap/Td Vaccine s (1 - Tdap) DTaP/Tdap/Td Vaccines (1 - Tdap) [facility] Start: 02-23-1972 Hepatitis C screening Hepatitis C Sc reening [facility] Start: 1954 Lipid panel Lipid Panel [facility] Start: 1955 Medicare Annual Well ness Visit Medicare Annual Wellness Visit (AWV) [facility] Start: 1954 Screening for malign ant neoplasm of colon [facility] Start: 1954 Screening for osteoporosis Bone Density Scan [facility] Immunizations Immunization Date Immunization Notes Care Provider Fa cility 11-09-2024 Seasonal trivalent influenza vaccine, adjuvanted, preservative free JHONNY VALENCIA MD [facility] 10-11-2021 SARS-CoV-2 (COVID-19 ) mRNA-5958 vaccine JHONNY VALENCIA MD [facility] 11-05-2020 pneumococcal conjuga te vaccine, 13 valent JHONNY VALENCIA MD [facility] 11-05-2020 influenza virus vacc ine, unspecified formulation Elvin Blanc PA-C Work Phone: [facility] 09-23-2019 pneumococcal polysaccharide vaccine, 23 valent JHONNY VALENCIA MD [facility] Payers Date Payer Category Payer Private Health Insurance [id number] 2024 Medicare [id number] 2024 Medicare supplementa l policy (as second payer) AARP [id number] 2024 Unknown [id number] 2024 Medicare (Managed Care) KEI MONZON [facility] [id number] 2024 Medicare [id number] 2023 Medicare [id number] 2023 Medicare [id number] 2023 Unknown [id number] 2023 Unknown [employer] [id number] 2023-Present [address] [place] [address] [id number] 1954 Unknown [id number] [id number] .627 1954 Unknown [id number] 2.16.840.1.730656.3.579.2 .651 1954 Unknown [id number] 2.16.840.1.919603.3.579.2 .651 1954 Unknown [id number] 2.16.840.1.197415.3.579.2 .651 1954 Unknown [id number] 2.16.840.1.267225.3.579.2 .651 1954 Unknown [id number] 2.16.840.1.809039.3.579.2 .651 1954 Unknown [id number] 2.16.840.1.755816.3.579.2 .651 1954 Unknown [id number] 2.16.840.1.137862.3.579.2 .651 1954 Unknown [id number] 2.16.840.1.292561.3.579.2 .651 1954 Unknown [id number] 2.16.840.1.416336.3.579.2 .651 1954 Unknown [id number] 2.16.840.1.163733.3.579.2 .651 1954 Unknown [id number] 2.16.840.1.029067.3.579.2 .627 1954 Unknown [id number] 2.16.840.1.654135.3.579.2 .627 1954 Unknown [id number] 2.16.840.1.429827.3.579.2 .1244 Self-pay [id number] Social History Date Type Detail Facility Tobacco smoking status [facility] Start: 09-18-2023 Tobacco smoking status KYIS Smokes tobacco daily [facility] Work Phone: History of tobacco use Cigarette Smoker [facility] Work Phone: Start: 09-18-2023 Tobacco use and exposure Smokeless tobacco non-user [facility] Work Phone: Start: 09-18-2023 End: 10-03-2024 Alcohol intake Lifetime non-drinker (finding) [facility] Work Phone: Start: 09-18-2023 History of Social function [facility] Work Phone: Start: 09-18-2023 [facility] Work Phone: Start: 1955 Sex Assigned At Not on file [facility] Work Phone: Start: 09-08-2023 End: 10-03-2024 Exposure to SARS-CoV-2 (event) Not sure [facility] Start: 2024 Tobacco smoking status Light tobacco smoker (finding) [facility] Tobacco smoking status Heavy tobacco smoker (finding) [facility] Start: 06-18-2011 Sex Female (finding) [facility] Functional Status Date Assessment Result Facility 11-09-2024 Functional Status Room check performed [facility] 11-09-2024 Functional Status [facility] 11-09-2024 Functional Status [facility] 11-09-2024 Functional Status 3am-7am [facility] 11-09-2024 Functional Status [facility] 11-09-2024 Functional Status Independent [facility] 11-08-2024 Functional Status Activity Assistance Ind ependent [facility] 11-08-2024 Functional Status [facility] 11-08-2024 Functional Status Dinner Percent 100 [facility] 11-08-2024 Functional Status [facility] 11-08-2024 Functional Status bilateral knee high rem arminda/off [facility] 11-07-2024 Functional Status [facility] 11-06-2024 Functional Status Min A [facility] 11-05-2024 Functional Status Special Call D evice Unable to use call device [facility] 11-05-2024 Functional Status [facility] 11-05-[address] [facility] 11-05-2024 Functional Status NPO Status Maintained [facility] 11-05-2024 Functional Status Single level home [facility] 11-05-[address] [facility] 11-05-[address] [facility] 11-04-2024 Functional Status Sensory Deficits None [facility] 09-06-2023 Functional Status Room check performed [facility] 09-05-2023 Functional Status [facility] 09-05-2023 Functional Status Done [facility] 09-05-2023 Functional Status [address] [facility] 09-05-2023 Functional [address] [facility] 09-04-2023 Functional Status Single level home [facility] 09-04-[address] Functional [address] [facility] 09-04-2023 Functional Status Transparent silicone dr nav [facility] 09-04-2023 Functional Status [facility] 09-04-2023 Functional Status Ambulation Up with assi stance [facility] 09-03-2023 Functional Status [facility] 09-03-2023 Functional Status [facility] 09-03-2023 Functional Status [facility] 09-03-2023 Functional Status [facility] 09-03-2023 Functional Status [facility] 09-03-2023 Functional Status Maintained [facility] 09-03-2023 Functional Status [facility] 09-03-2023 Functional Status [facility] Mental Status Date Assessment Result Facility 11-09-2024 Mental Status Oriented x 4 [facility] 11-09-2024 Mental Status [facility] 11-08-2024 Mental Status [facility] 11-07-2024 Mental Status [facility] 09-06-2023 Mental Status Oriented x 4 [facility] 09-05-2023 Mental Status [facility] Clinical Notes 09-02-2023 to 06-25-2025 Note [...] Complete by Nursing Assessment/Plan CAD s/p PCI ([facility] 06/24/2025 -significant LAD disease status post PCI [...] HARSH CEDILLO MD on 06/25/2025 01:39 PM [facility] 06-25-2025 Note Discharge Instructions Thank you for allowing [facility] to assist you with your healthcare needs. The following is important discharge information regarding your hospital visit. Your Care Team ALFONSO OZUNA APRN-MATERIALS RESEARCH ENGINEER What to do next Instructions From Your [...] 2 weeks Where:[address] [facility] [place] [address]- Follow Up with Cardiac Rehab- [facility] Where:[facility] [address] [place] [address]- Additional Information: Cardiac rehabilitation is a vital part of your recovery and long-term heart health following your hospital stay. It is a medically supervised exercise and education program designed to improve your physical fitness, manage heart-related risk factors, and support emotional well-being. A cardiac rehab cdl team truck driver will contact you soon to schedule your follow-up appointment. If you have any questions please call [phone]. Follow Up with [facility], When:Within 1-2 days Additional Information: [facility] has been referred to provide your home care services upon discharge; a nurse will contact you upon your return home to arrange for your start of care; please call with any further questions or concerns. Follow Up with ALFONSO OZUNA APRN-APRIL When:Within 1-2 days Where:[address], [place] [id number] [phone] Additional Information: Please call the office to [...] a day Duration: 3 Days Pickup at [facility] New spironolactone (Aldactone 25 mg oral tablet) 1 tab(s) by mouth Once a day with a meal Duration: 90 Days Refills: 3 Pickup at [facility] Changed aspirin (aspirin 81 mg oral delayed release tablet) 1 tab(s) by mouth Every day Duration: 90 Days Pickup at [facility] Changed clopidogrel (Plavix 75 mg oral tablet) 1 tab(s) by mouth Once a day Duration: 90 Days Pickup at [facility] Changed furosemide (Lasix 40 mg oral tablet) 1 tab(s) by mouth Once a day Duration: 90 Days Pickup at [facility] Unchanged albuterol (albuterol MDI (90 mcg/ inh) [...] Two (2) times a day Pharmacy Information [facility]: [address], [place] [id number] [phone] Please take this list to your next [...] You should not use spironolactone if you [place]gle[place]'s disease, high levels of potassium in your [...] may report side effects to FDA at 7-680-JUE-9759. What other drugs will affect spironolactone? Using [...] drugs may affect spironolactone, including prescription and hogb-uan-fypebcb medicines, vitamins, and herbal products. Not all [...] to ensure that the information provided by [employer]. ('[employer]') is accurate, up-to-date, and complete, but no guarantee is made to that effect. Drug information contained herein may be time sensitive. [employer] information has been compiled for use by healthcare practitioners and consumers in the [place] and therefore [employer] does not warrant that uses outside of the [place] are appropriate, unless specifically indicated otherwise. [employer] drug information does not endorse drugs, diagnose patients or recommend therapy. [employer] drug information is an informational resource designed [...] effective or appropriate for any given patient. [employer] does not assume any responsibility for any aspect of healthcare administered with the aid of information [employer] provides. The information contained herein is not intended to cover all possible uses, directions, precautions, warnings, drug interactions, allergic reactions, or adverse effects. If you have questions about the drugs you are taking, check with your doctor, nurse or pharmacist. Copyright 0257-0595 [employer]. Version: 11.. Revision Date: 01/04/2020. Education Materials [...] a prescription, and some you can buy bpru-qii-[id number]. Some medicines may contain a drug called [...] 08/05/2010 Document Revised: 12/27/2019 Document Reviewed: 12/28/2019 [employer] Patient Education 2020 [employer]. HEART CATHETERIZATION/PCI (radial) Discharge Instructions DIET Drink [...] Document Reviewed: 10/10/2014 ExitCare Patient Information 2015 [employer]. This information is not intended to replace advice given to you by your health care provider. Make sure you discuss any questions you have with your health care provider. Additional Information VACCINATE! IT SAVES LIVES! Members of the community who have not yet received the COVID-19 vaccine and would like to receive it can visit one of [facility] vaccine clinics. There are many vaccine clinic locations within the [facility]. For locations and available times, please visit [email or web address].o txo.gov/. It is important to note that some COVID mobile vaccine clinics are held outdoors and may be canceled in rainy or stormy conditions. To learn more about pediatric vaccinations (ages 5-11), we invite you to visit the [facility] webpage. [email or web address] [email or web address].[email or web address] To learn more about the COVID-19 vaccine, we invite you to visit the CDC website for a list of frequently asked questions.https://www.cdc.gov/co ronavirus/2019-ncov/vaccines/faq .html [employer] Patient Portal Access Instructions: Stay connected with your healthcare team and access your personal medical information anytime with the [employer] Patient Portal. Please follow the directions below to create your [employer] account: 1.Access the email account you provided upon registration to the hospital/physician office.2.Look for an invitation email from [facility].3.Open the email and access the invitation link: Accept Invitation to [employer].4.Fill in the required lr to create your account. To access your account, visit [employer] [email or web address]. Click the blue button labeled Access Patient [...] you will allow to register on the [facility] Patient Portal for access to your information. You can also access the [facility] Patient Portal on the [facility] benitez. Simply click on Patient Portal and then log into your account. If you would like to receive a full copy of your medical records, please contact the [facility] Medical Records Department by calling [phone], Monday through Monday between 8 a.m. and [...] Call your local pharmacy or go to [email or web address] to find one close to you.3.Make use of household items: Use cat litter or old coffee grounds to dispose medications if other options are not available. Mix your drugs with these household products, seal them in an airtight container and throw it into the garbage. Call [facility]: [phone] to be sure your drugs can be [...] Patient Education Materials Steps to Quit Smoking, Sbfv-se-Xvzw 3- Heart Cath/PCI radial (07/2018)(CUSTOM) Medication Leaflets spironolactone My discharge plan and instructions have been reviewed and explained to me and I,ZABRINA HSU understand my current condition and have read and understand these discharge instructions. I have received a written copy of the plan/instructions. If I have questions, I am aware that I should contact my doctor. 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 Some medicines may contain a drug called [...] and encourage you. Call a phone quitline (8-181-XUBWNOW), reach out to support groups, or work [...] 08/05/2010 Document Revised: 12/27/2019 Document Reviewed: 12/28/2019 [employer] Patient Education 2020 [employer]. 06/25/2025 12:39:24 3- Heart Cath/PCI radial (07/2018)(CUSTOM) [...] Document Reviewed: 10/10/2014 ExitCare Patient Information 2015 [employer]VS [employer]. This information is not intended to replace advice given to you by your health care provider. Make sure you discuss any questions you have with your health care provider. Follow Up Care 06/16/2025 05:21:39 With:KEITH CANCHOLA MD Address: [address] [facility] [address] [facility] [place] [address]- When:Within 2 Week(s) With:Cardiac Rehab- [facility] Address: [facility] [address] [place] [address]- When: Unknown Comments:Cardiac rehabilitation is a vital part of your recovery and long-term heart health following your hospital stay. It is a medically supervised exercise and education program designed to improve your physical fitness, manage heart-related risk factors, and support emotional well-being. A cardiac rehab cdl team truck driver will contact you soon to schedule your follow-up appointment. If you have any questions please call [phone]. With:[facility], Address:Unknown When:1-2 days Comments:[facility] has been referred to provide your home care services upon discharge; a nurse will contact you upon your return home to arrange for your start of care; please call with any further questions or concerns. With:ALFONSO OZUNA APRNSTATE REFORM SCHOOL FOR BOYS Address: [address] [place] [address]- [phone] When:1-2 days Comments:Please call the office to schedule a hospital follow up appointment. [facility] 06-25-2025 Cardiology Progress note Subjective Patient seen [...] Complete by Nursing Assessment/Plan CAD s/p PCI ([facility] 06/24/2025 -significant LAD disease status post PCI [...] to 35% with wall motion abnormality. Underwent [facility] yesterday showing significant LAD disease with PCI to LAD and moderate disease in LCx, which is recommended to manage medically. Patient tolerated DAPT with aspirin and Plavix. Continue Coreg, Entresto and spironolactone. Okay to be discharged from cardiac standpoint. Digitally Signed by HARSH CEDILLO MD on 06/25/2025 01:39 PM [facility] 06-25-2025 Discharge summary Date of Service 06/25/2025 [...] restenosis); prior EF ~50% with hypokinesis. s/p [facility] 06/24 with PCI DC home 06/25 with DAPT and 3d 10mg prednisone. Followup with PCP and Cardiology Allergies NKA Procedures [facility] Intubation Consults No qualifying data available. Imaging [...] Extremities: No edema, No cyanosis or clubbing KEY OPERATOR: Alert, No focal deficits identified. Skin: No [...] CANCHOLA MD When:In 2 weeks Where:[address] [facility] [address] [facility] [place] [address]- Follow Up with Card[facility] Re[facility]- [facility] Where:[facility] [address] [place] [address]- Additional Information: Cardiac rehabilitation is a vital part of your recovery and long-term heart health following your hospital stay. It is a medically supervised exercise and education program designed to improve your physical fitness, manage heart-related risk factors, and support emotional well-being. A cardiac rehab cdl team truck driver will contact you soon to schedule your follow-up appointment. If you have any questions please call [phone]. Follow Up with [facility], When:Within 1-2 days Additional Information: [facility] has been referred to provide your home care services upon discharge; a nurse will contact you upon your return home to arrange for your start of care; please call with any further questions or concerns. Follow Up with ALFONSO OZUNA APRN-MATERIALS RESEARCH ENGINEER When:Within 1-2 days Where:[address] [place] [address]- [phone] Additional Information: Please call the office to [...] NORMA HAMILTON MD on 06/25/2025 01:18 PM [facility] 06-25-2025 Note Discharge Instructions Thank you for allowing [facility] to assist you with your healthcare needs. The following is important discharge information regarding your hospital visit. Your Care Team ALFONSO OZUNA What to do next Follow Up Appointments Follow Up with KEITH CANCHOLA MD When:In 2 weeks Where:[address] [facility] [address] [facility] [place] [address]- Follow Up with [facility]- [facility] Where:[facility] [address] [place] [address]- Additional Information: Cardiac rehabilitation is a vital part of your recovery and long-term heart health following your hospital stay. It is a medically supervised exercise and education program designed to improve your physical fitness, manage heart-related risk factors, and support emotional well-being. A cardiac rehab cdl team truck driver will contact you soon to schedule your follow-up appointment. If you have any questions please call [phone]. Follow Up with [facility], When:Within 1-2 days Additional Information: [facility] has been referred to provide your home care services upon discharge; a nurse will contact you upon your return home to arrange for your start of care; please call with any further questions or concerns. Follow Up with ALFONSO OZUNA When:Within 1-2 days Where:[address] [place] [address]- [phone] Additional Information: Please call the office to [...] Duration: 90 Days Refills: 3 Pickup at [facility] Changed aspirin (aspirin 81 mg oral delayed release tablet) 1 tab(s) by mouth Every day Duration: 90 Days Pickup at [facility] Changed clopidogrel (Plavix 75 mg oral tablet) 1 tab(s) by mouth Once a day Duration: 90 Days Pickup at [facility] Changed furosemide (Lasix 40 mg oral tablet) 1 tab(s) by mouth Once a day Duration: 90 Days Pickup at [facility] Unchanged albuterol (albuterol MDI (90 mcg/ inh) [...] Two (2) times a day Pharmacy Information [facility]: [address], [place] [id number] [phone] Please take this list to your next [...] You should not use spironolactone if you Oglethorpe's disease, high levels of potassium in your [...] allergic to it, or if you have: Oglethorpe's disease (an adrenal gland disorder); high levels [...] may report side effects to FDA at 3-583-NNK-8927. What other drugs will affect spironolactone? Using [...] drugs may affect spironolactone, including prescription and mefv-rsq-ixgxsec medicines, vitamins, and herbal products. Not all [...] to ensure that the information provided by [employer]. ('[employer]') is accurate, up-to-date, and complete, but no guarantee is made to that effect. Drug information contained herein may be time sensitive. Trust[employer] information has been compiled for use by healthcare practitioners and consumers in the [place] and therefore TrustID does not warrant that uses outside of the [place] are appropriate, unless specifically indicated otherwise. [employer] drug information does not endorse drugs, diagnose patients or recommend therapy. [employer] drug information is an informational resource designed [...] effective or appropriate for any given patient. [employer] does not assume any responsibility for any aspect of healthcare administered with the aid of information TrustID provides. The information contained herein is not intended to cover all possible uses, directions, precautions, warnings, drug interactions, allergic reactions, or adverse effects. If you have questions about the drugs you are taking, check with your doctor, nurse or pharmacist. Copyright 6523-0748 [employer]. Version: .. Revision Date: 01/04/2020. Education Materials [...] a prescription, and some you can buy kijd-lwo-avannnj. Some medicines may contain a drug called [...] and encourage you. Call a phone quitline (2-495-ANYS-NOW), reach out to support groups, or work [...] Document Reviewed: 12/28/2019 Elsevier Patient Education 2019 [place]. HEART CATHETERIZATION/PCI (radial) Discharge Instructions DIET Drink [...] Document Reviewed: 10/10/2014 ExitCare Patient Information 2015 [facility]. This information is not intended to replace advice given to you by your health care provider. Make sure you discuss any questions you have with your health care provider. Additional Information VACCINATE! IT SAVES LIVES! Members of the community who have not yet received the COVID-19 vaccine and would like to receive it can visit one of [facility] vaccine clinics. There are many vaccine clinic locations within the [facility]. For locations and available times, please visit https://gettheshot.coronavirus.o hio.gov/. It is important to note that some COVID mobile vaccine clinics are held outdoors and may be canceled in rainy or stormy conditions. To learn more about pediatric vaccinations (ages 5-11), we invite you to visit the [facility] webpage. https://www.[facility].org/p ages/0625-Ufbde-Oinrtidrnqy-Freq cecaqv-Ruapb-Melhhylib.html To learn more about the COVID-19 vaccine, we invite you to visit the CDC website for a list of frequently asked questions.https://www.cdc.gov/co ronavirus/2019-ncov/vaccines/faq .html [facility] Patient Portal Access Instructions: Stay connected with your healthcare team and access your personal medical information anytime with the [facility] Patient Portal. Please follow the directions below to create your [facility] account: 1.Access the email account you provided upon registration to the hospital/physician office.2.Look for an invitation email from [facility].3.Open the email and access the invitation link: Accept Invitation to [facility].4.Fill in the required lr to create your account. To access your account, visit I Move You/[email or web address]. Click the blue button labeled Access Patient [...] will allow to register on the [facility] Patient Portal for access to your information. You can also access the [facility] Patient Portal on the ZocDoc Anywhere benitez. Simply click on Patient Portal and then log into your account. If you would like to receive a full copy of your medical records, please contact the [facility] Medical Records Department by calling [phone], Monday through Monday between 8 a.m. and [...] Call your local pharmacy or go to http://Silentsoft.Qubrit/4X8Wb6o to find one close to you.3.Make use of household items: Use cat litter or old coffee grounds to dispose medications if other options are not available. Mix your drugs with these household products, seal them in an airtight container and throw it into the garbage. Call [facility]: [phone] to be sure your drugs can be [...] Patient Education Materials Steps to Quit Smoking, Djfl-it-Sazu 3- Heart Cath/PCI radial (07/2018)(CUSTOM) Medication Leaflets spironolactone My discharge plan and instructions have been reviewed and explained to me and IARACELIS MELODIE L understand my current condition and have read and understand these discharge instructions. I have received a written copy of the plan/instructions. If I have questions, I am aware that I should contact my doctor. Patient/Software Developer Mid Level Signature: Date/Time: Relationship to Patient: Witness Name/Signature: Date/Time: [facility] 06-24-2025 Note Exam Date Time Procedure Performing Provider Status 06/24/25 6:43 PM Electrocardiogram - EKG - CV MARY BERNAL MD; Auth (Verified) ECG Final Report SINUS RHYTHM LOW VOLTAGE, EXTREMITY LEADS NONSPECIFIC T ABNRM, ANTEROLATERAL LEADS Electronic Signature: OWEN BERNAL MD 06/25/2025 11:40:06 [facility] [id number] Cardiology Progress note Date of Service 06/24/2025 [...] JESUSITA SOARES MD on 06/24/2025 02:13 PM [facility] [id number] Cardiology Progress note Date of Service 06/24/25 [facility] Significant LAD disease s/p PCI Aspirin and Plavix Residual Left CRx disease for medical management Digitally Signed by CLAUDE MEADOWS MD on 06/24/2025 03:34 PM [facility] [id number] Cardiology Progress note Date of Service 06/24/2025 [...] JESUSITA SOARES MD on 06/24/2025 02:13 PM [facility] [id number] Note Date of Service 06/24/25 Chief Complaint [...] lab service, Stop date 06/24/25 8:05:00 EDT, [id number] .Neutro Absolute, Timed Study (collect at specified time), Blood, Once, Preferred Lab: Other lab service, Stop date 06/24/25 8:05:00 EDT, [id number] APTT, 06/24/25 8:00:00 EDT, Timed Study (collect [...] Midnight, 06/23/25 23:58:00 EDT, Constant Order, For [facility] on Sunday 06/24 NSTEMI (peak troponin 1085) [...] systolic; continue losartan and carvedilol. Goal <130/80 prison, but avoid rapid inpatient lowering. Lipids Rosuvastatin [...] patch 14 mg daily with lozenges PRN. [employer] cessation. Renal function Cr 1.0, BUN 19, [...] Spent Greater than 35 minutes were spent lpzs-fe-xatd with the patient +/- family during this encounter and >50% was spent on counseling and coordination of care. Digitally Signed by PAPI BAXTER MD on 06/24/2025 08:54 PM [facility] [id number] Note Date of Service 06/23/25 Chief Complaint [...] Result Date: June 18, 2025 Verified By: GENAOR NO MD CLINICAL STATEMENT: IMPRESSION: 1. Chronic [...] Midnight, 06/22/25 23:58:00 EDT, Constant Order, For [facility] on Monday (06/23/25) NSTEMI (peak hs-troponin 1085) [...] mg daily before discharge if hemodynamically stable; relationship counselor on sick-day rules and euglycemic DKA [...] recent anti-Xa/aPTT within target prior to transport; optical laboratory manager will manage periprocedural anticoagulation dosing. PT recommends [...] Spent Greater than 35 minutes were spent bgsm-ct-jdjq with the patient +/- family during this encounter and >50% was spent on counseling and coordination of care. Digitally Signed by PAPI BAXTER MD on 06/23/2025 08:03 PM [facility] [id number] Note Date of Service 06/22/25 Chief Complaint [...] Spent Greater than 35 minutes were spent jkga-kt-ggup with the patient +/- family during this encounter and >50% was spent on counseling and coordination of care. Digitally Signed by PAPI BAXTER MD on 06/22/2025 04:42 PM [facility] [id number] Note. MICRO - Microbiology PROCEDURE: Blood Culture [...] Locations *1: This test was performed at: [address], [address] [place] [address] [id number] Note. MICRO - Microbiology PROCEDURE: Blood Culture [...] Locations *1: This test was performed at: [address], [address] [place] [address] [id number] Note. MICRO - Microbiology PROCEDURE: Blood Culture [...] Locations *1: This test was performed at: [address], [address] [place] [address] [id number] Note. MICRO - Microbiology PROCEDURE: Blood Culture [...] Locations *1: This test was performed at: [facility], [address] [place] [address], [facility] , [facility]08-30-2025 Nurse Progress note Patient is alert and oriented 4 but forgetful. She is aware of how to disable bed alarms and was wearing nonslip socks at the time of the incident. The respiratory therapist encountered the patient ambulating unassisted, jail to the bathroom, tugging on her IV [...] contacted and updated regarding the incident. The progressive care unit registered nurse was also notified via email. Patient was monitored closely following the event. Digitally Signed by Matthieu Blake RN on 06/21/2025 07:41 AM [facility] [id number] Cardiology Consult note Date of Service 06/16/2025 [...] right atrial pressure is 8 mm Hg. [facility] 08/2023: SUMMARY: 1. Left ventricle: Systolic function [...] Problem List/Past Medical History Ongoing CAD in [place] artery Cardiomyopathy Hypertension Mitral valve regurgitation Syncope [...] MELANIE CLEMONS DO on 06/16/2025 04:25 PM [facility] [id number] Note Date of Service 06/20/2025 ICU Day [...] COPD transfer for [facility]. Vitals BP 114/67, MAP 83, [...] exacerbation of COPD (emphysematous) and transferred to [facility]. Current vent settings FiO2 40%, tidal volume [...] Event Name Event Result Date/Time WBC 6.4 10^[facility] 06/20/25 02:11:00 WBC 5.8 10^[facility] 06/19/25 02:59:00 WBC 6.9 Jocy^[facility] 06/18/25 03:51:00 WBC 9 [facility] 06/17/25 06:47:00 Hgb 11.1 G/dL [facility] 06/20/25 02:11:00 Hgb 11.3 G/dL [facility] 06/19/25 02:59:00 Hgb 11 G/dL [facility] 06/18/25 03:51:00 Hgb 10.9 G/dL [facility] 06/17/25 06:47:00 Hct 33 % [facility] 06/20/25 02:11:00 Hct 33.7 % [facility] 06/19/25 02:59:00 Hct 33 % [facility] 06/18/25 03:51:00 Hct 32.8 % [facility] 06/17/25 06:47:00 Platelet 290 [facility] 06/[facility] 02:11:00 Platelet 272 [facility] 06/19/25 02:59:00 Platelet 268 [facility] 06/18/25 03:51:00 Platelet 240 10^[facility] 06/17/25 06:47:00 APTT 67.1 seconds [facility] 06/20/25 01:39:00 APTT 52.6 seconds [facility] 06/19/25 17:01:00 APTT 73.6 seconds [facility] 06/19/25 08:44:00 APTT 65.1 seconds [facility] 06/19/25 02:59:00 APTT 68.1 seconds [facility] 06/18/25 19:45:00 APTT 40.6 seconds [facility] 06/18/25 08:41:00 APTT 51.7 seconds [facility] 06/18/25 03:51:00 APTT 46.8 seconds [facility] 06/17/25 20:40:00 APTT 40.2 seconds [facility] 06/17/25 12:38:00 APTT 54.3 seconds [facility] 06/17/25 06:47:00 Glucose Level 116 mg/dL [facility] 06/20/25 02:11:00 Glucose Level 156 mg/dL [facility] 06/19/25 20:49:00 Glucose Level 139 mg/dL [facility] 06/19/25 02:59:00 Glucose Level 145 mg/dL High [...] the sections as needed. Sammie Zaragoza M.D., [facility] [place] High degree of medical complexity noted in [...] SAMMIE ZARAGOZA MD on 06/20/2025 12:58 PM [facility] [id number] Note* Exam Date Time Procedure Performing Provider Status 06/19/25 6:40 PM Electrocardiogram - EKG - CV JAIRO LIMA MD; Auth (Verified) ECG Final Report Wandering atrial pacemaker Left ventricular hypertrophy Prolonged QT interval Electronic Signature: JAIRO PÉREZ MD 06/20/2025 16:26:25 [facility] [id number] Note Date of Service 06-19-2025 ICU Day [...] COPD transfer [facility]. Vitals BP 114/67, MAP 83, [...] exacerbation of COPD (emphysematous) and transferred to [facility]. Current vent settings FiO2 40%, tidal volume [...] 9 10^3/mcL 06/17/25 06:47:00 WBC 12.1 10^3/mcL [facility] 06/16/25 17:09:00 Hgb 11.3 G/dL [facility] 06/19/25 02:59:00 Hgb 11 G/dL Low 06/18/25 03:51:00 Hgb 10.9 G/dL [facility] 06/17/25 06:47:00 Hgb 11.3 G/dL Low 06/16/25 17:09:00 Hct 33.7 % [facility] 06/19/25 02:59:00 Hct 33 % Low 06/18/25 03:51:00 Hct 32.8 % [facility] 06/17/25 06:47:00 Hct 34.3 % 06/16/25 17:09:00 Platelet 272 10^3/mcL 06/19/25 02:59:00 Platelet 268 10^3/mcL 06/18/25 03:51:00 Platelet 240 10^3/mcL 06/17/25 06:47:00 Platelet 263 10^3/mcL 06/16/25 17:09:00 APTT 73.6 seconds [facility] 06/19/25 08:44:00 APTT 65.1 seconds [facility] 06/19/25 02:59:00 APTT 68.1 seconds [facility] 06/18/25 19:45:00 APTT 40.6 seconds [facility] 06/18/25 08:41:00 APTT 51.7 seconds [facility] 06/18/25 03:51:00 APTT 46.8 seconds High 06/17/25 [...] mg/dL 06/17/25 06:47:00 Sodium Level 149 mEq/L [facility] 06/19/25 02:59:00 Sodium Level 143 mEq/L 06/18/25 [...] 28 mEq/L 06/17/25 06:47:00 BUN 32 mg/dL [facility] 06/19/25 02:59:00 BUN 32 mg/dL [facility] 06/18/25 03:51:00 BUN 30 mg/dL [facility] 06/17/25 06:47:00 Creatinine Lvl (s) 0.87 mg/dL [...] well she can be transferred to the [facility] today. 9. Cardiology will follow-up regarding potential [...] the sections as needed. Sammie Zaragoza M.D., [facility] [place] High degree of medical complexity noted in [...] SAMMIE ZARAGOZA MD on 06/19/2025 01:04 PM [facility] [id number] Note* Exam Date Time Procedure Performing Provider Status 06/19/25 7:59 AM XR Chest 1 View BELLO AGUIRRE DO; [facility]of[facility] (Verified) [id number] ORIGINAL EXAMINATION: ONE XRAY VIEW OF THE [...] 06/19/2025 8:06:42 AM Ordering Provider: ADRIANA WEAVER [facility] [id number] Note* Exam Date Time Procedure Performing Provider Status 06/18/25 11:16 AM Electrocardiogram - EKG - CV JAIRO MARTINS MD; Auth (Verified) ECG Final Report Sinus rhythm Multiple premature complexes, vent & supraven Anterior infarct, age indeterminate Lateral leads are also involved Electronic Signature: JAIRO PÉREZ MD 06/19/2025 16:18:13 [facility] [id number] Note. MICRO - Microbiology PROCEDURE: Culture Respiratory [...] Locations *1: This test was performed at: [facility], [address] [place] [address], [facility]- , [facility]08-27-2025 Note* Exam Date Time Procedure Performing Provider Status 06/18/25 6:44 AM XR Chest 1 View GENARO NO MD; Auth (Verified) [id number] ORIGINAL EXAMINATION: ONE XRAY VIEW OF THE [...] Sign Date: 06/18/2025 7:12:41 AM Ordering Provider: [facility]08-27-2025 Note Date of Service 06-18-2025 ICU Day 3 Significant Comorbidities/Current Illness 70-year-old female with history of CAD status post PCI to RCA in , cardiomyopathy (thought to be Takotsubo cardiomyopathy), COPD, bipolar, tobacco use, GERD, anxiety, depression, history of suicide attempt in 2010. Presented to [facility] with COPD exacerbation. developed hypoxic respiratory failure requiring intubation and mechanical ventilation and COPD transfer for pulmonary [facility]. Vitals BP 114/67, MAP 83, [...] exacerbation of COPD (emphysematous) and transferred to [facility]. Current vent settings FiO2 40%, tidal volume [...] minutes Critical Care time Sammie Zaragoza M.D., [facility] [place] High degree of medical complexity noted in [...] SAMMIE ZARAGOZA MD on 06/18/2025 12:13 PM [facility] [id number] Note* Exam Date Time Procedure Performing Provider Status 06/17/25 6:53 AM XR Chest 1 View GENARO NO MD; Auth (Verified) [id number] ORIGINAL EXAMINATION: ONE XRAY VIEW OF THE [...] 06/17/2025 6:58:17 AM Ordering Provider: DEVIN DIAMOND [facility] [id number] Note Date of Service 06-17-2025 ICU Day [...] COPD transfer for [facility]. Vitals BP 114/67, MAP 83, [...] exacerbation of COPD (emphysematous) [facility]. Current vent settings FiO2 40%, tidal volume [...] & SBI 143, RR 31, and tidal . Minute volume was 5.9. 4-collateral history obtained [...] minutes Critical Care time Sammie Zaragoza M.D., [facility] [place] High degree of medical complexity noted in [...] SAMMIE ZARAGOZA MD on 06/17/2025 12:37 PM [facility] [id number] Note* Exam Date Time Procedure Performing Provider Status 06/16/25 4:12 PM Electrocardiogram - EKG - CV JAIRO LIMA MD; Auth (Verified) ECG Final Report Sinus rhythm Atrial premature complex Anterior infarct, age indeterminate Prolonged QT interval Electronic Signature: JAIRO PÉREZ MD 06/17/2025 20:33:19 [facility] [id number] Pastoral care Progress note Pastoral Care Note [...] by Krystian Adams on 06/16/2025 04:08 PM [address]25-2025 Cardiology Consult note Date of Service [...] right atrial pressure is 8 mm Hg. [facility] 08/2023: SUMMARY: 1. Left ventricle: Systolic function [...] Problem List/Past Medical History Ongoing CAD in [place] artery Cardiomyopathy Hypertension Mitral valve regurgitation Syncope [...] MELANIE CLEMONS DO on 06/16/2025 04:25 PM [facility] [id number] Evaluation + Plan noteExtracted from: Title:History and [...] minutes Critical Care time Sammie Zaragoza M.D., [facility] [place] High degree of medical complexity noted in this patient with review of external notes and results of tests, ordering of new tests, and an independent review of the patient. I reviewed tests ordered by other physicians and reviewed my assessment with other health care providers. Future Scheduled Tests Laboratory* Basic Metabolic Panel 03/13/25 [facility] 08-25-2025 Note* Exam Date Time Procedure Performing Provider Status 06/16/25 1:35 PM Electrocardiogram - EKG - CV JAIRO LIMA MD; Auth (Verified) ECG Final Report WANDERING ATRIAL PACEMAKER Consider left ventricular hypertrophy Inferior infarct, old Prolonged QT interval Electronic Signature: JAIRO PÉREZ MD 06/17/2025 20:33:08 [facility] [id number] Note* Exam Date Time Procedure Performing Provider Status 06/16/25 1:27 PM Echocardiogram, Adult - CV JAIRO BEJARANO MD; Auth (Verified) [facility] [id number] Note. MICRO - Microbiology PROCEDURE: Legionella Urine [...] Locations *1: This test was performed at: [facility], [address] [place] [address], [id number] , [facility]08-25-2025 Note. MICRO - Microbiology PROCEDURE: Streptococcus Pneumoniae [...] Locations *1: This test was performed at: [address], [facility] , [facility]08-25-2025 Note* Exam Date Time Procedure Performing Provider Status 06/16/25 11:30 AM VL Venous US/Doppler Both Legs(for DVT) EMILIO AVILES MD; Auth (Verified) [facility] [id number] Note* Exam Date Time Procedure Performing Provider Status 06/16/25 10:36 AM XR Chest 1 View ARAZNA REDDY MD; [facility] (Verified) [id number] ORIGINAL EXAMINATION: ONE XRAY VIEW OF THE [...] Date: 06/16/2025 10:44:49 AM Ordering Provider: VANDANA [facility]08-25-2025 History and physical note Date of Service 06/16/2025 Chief Complaint Transferred from [facility] History of Present Illness This is [...] COPD transfer for pulmonary and hospital [facility]. Vitals BP 114/67, MAP 83, [...] exacerbation of COPD (emphysematous) and transferred to [facility]. Current vent settings FiO2 40%, tidal volume [...] minutes Critical Care time Sammie Zaragoza M.D., [facility] [place] High degree of medical complexity noted in this patient with review of external notes and results of tests, ordering of new tests, and an independent review of the patient. I reviewed tests ordered by other physicians and reviewed my assessment with other health care providers. Problem List/Past Medical History Ongoing CAD in [place] artery Cardiomyopathy Hypertension Mitral valve regurgitation Syncope [...] DOS SANTOS MD on 06/16/2025 03:41 PM [facility] [id number] Note. MICRO - Microbiology PROCEDURE: Blood Culture (bacterial) [*1] SOURCE: Blood BODY SITE: COLLECTED DATE/TIME: 11/04/2024 05:15 EST RECEIVED DATE/TIME: 11/04/2024 15:48 EST START DATE/TIME: 11/04/2024 15:49 EST FREE TEXT SOURCE: M/R 69160; lab 32804; [id number] FINAL REPORTS Final Report [] Verified Date/Time/Personnel: 11/09/2024 15:59 EST Blood Culture: No Growth at 5 days. PRELIMINARY REPORTS Preliminary Report [] Verified Date/Time/Personnel: 11/04/2024 16:59 EST Culture has been received in lab and is no growth to date. Routine cultures are held for 5 days. Performing Locations *1: This test was performed at: [facility], [address] [place] [address], [facility] , [facility]01-18-2025 Note. MICRO - Microbiology PROCEDURE: Blood Culture (bacterial) [*1] SOURCE: Blood BODY SITE: COLLECTED DATE/TIME: 11/04/2024 05:45 EST RECEIVED DATE/TIME: 11/04/2024 15:45 EST START DATE/TIME: 11/04/2024 15:46 EST FREE TEXT SOURCE: M/R 05468; lab [id number]; [id number] FINAL REPORTS Final Report [] Verified Date/Time/Personnel: 11/09/2024 15:59 EST Blood Culture: No Growth at 5 days. PRELIMINARY REPORTS Preliminary Report [] Verified Date/Time/Personnel: 11/04/2024 16:59 EST Culture has been received in lab and is no growth to date. Routine cultures are held for 5 days. Performing Locations *1: This test was performed at: [address], [address] [place] [address] [id number] Note. MICRO - Microbiology PROCEDURE: Blood Culture [...] Locations *1: This test was performed at: [address], [address] [place] [address] [id number] Note. MICRO - Microbiology PROCEDURE: Blood Culture [...] Locations *1: This test was performed at: [address], [address] [place] [address] [id number] Discharge summary Date of Service 11/09/2024 Discharge [...] and depression who presented as transfer from [facility] with acute respiratory failure requiring intubation. Initial saturation on 4 L nasal cannula was 70%. Lactic acid was elevated at 4.6. She initially went to ER at [facility] with shortness of breath and wheezing. At the previous hospital patient was thought to have A-fib with RVR and she was started on Cardizem drip, and route patient was in normal sinus rhythm, and in [facility] patient was always in normal sinus rhythm, upon reviewing the EKG that was done in [facility],I do have a suspicion that the patient [...] Mahnaz Moore for skilled care, report to [phone] When:Within 1-2 days Follow Up with ALFONSO OZUNA When:Within 1-2 days Where:[address] [place] [address]- [phone] Business (1) Follow Up Appointments Transfer of [...] LOVE CARTER MD on 11/09/2024 01:12 PM [facility] [id number] Hospital Discharge instructions Patient Education 11/09/2024 10:15:52 [...] breathing. Follow these instructions at home: Take opnb-rhl-ofqonlu and prescription medicines only as told by [...] 10/14/2014 Document Revised: 09/21/2018 Document Reviewed: 04/26/2017 [employer] Patient Education 2020 [employer] Follow Up Care 11/04/2024 07:53:19 With:Mahnaz Moore for [facility] care, report to [phone] Address:Unknown When:1-2 days With:ALFONSO OZUNA Address: [address] [place] [id number] [phone] Business (1) When:1-2 days [facility] 01-18-2025 Note Discharge Instructions Thank you for allowing [facility] to assist you with your healthcare needs. The following is importantdischarge information regarding your hospital visit. Your Care Team ALFONSO OZUNA SNUFF CONTAINER INSPECTOR-MATERIALS RESEARCH ENGINEER What to do next Scheduled Follow-Up Appointments Appointment Type When With Where Contact Information StatusCV Hospital Follow Up 12/06/2024 03:30 PM EST NORA ROBERT [facility] Follow Up Appointments Follow Up with Mahnaz Moore for skilled care, report to [phone] When:Within 1-2 days Follow Up with ALFONSO OZUNA When:Within 1-2 days Where:[address] [place] [address] [phone] Business (1) The Following Activity and Diet [...] breathing. Follow these instructions at home: Take czkc-ucc-ntxfxwd and prescription medicines only as told by [...] 10/14/2014 Document Revised: 09/21/2018 Document Reviewed: 04/26/2017 [employer] Patient Education 2020 [employer] Additional Information VACCINATE! IT SAVES LIVES! Members of the community who have not yet received the COVID-19 vaccine and would like to receive it can visit one of [facility] vaccine clinics. There are many vaccine clinic locations within the [facility]. For locations and available times, please visit [email or web address].gov/. It is important to note that some COVID mobile vaccine clinics are held outdoors and may be canceled in rainy or stormy conditions. To learn more about pediatric vaccinations (ages 5-11), we invite you to visit the [employer] webpage. https://[email or web address]/pages/[email or web address]-Ofjan-Sedvpxwbzmp-Wmaysaxwiq-Bpunn-Rpw stions.htmlTo learn more about the COVID-19 vaccine, we invite you to visit the CDC website for a list of frequently asked questions.https://www.cdc.gov/coronavirus/2019-ncov/vaccines/faq.html [employer] Patient Portal Access Instructions: Stay connected with your healthcare team and access your personal medical information anytime with the [employer] Patient Portal. Please follow the directions below to create your [employer] account: 1.Access the email account you provided upon registration to the hospital/physician office.2.Look for an invitation email from [facility].3.Open the email and access the invitation link: AcceptInvitation to [employer].4.Fill in the required lr to create your account. To access your account, visit [employer] You/ZocDocOneChart. Click the blue button labeled Access Patient [...] your information. You can also access the [facility] Patient Portal on the [place] [facility] benitez. Simply click on Patient Portal and then log into your account. If you would like to receive a full copy of your medical records, please contact the [facility] Medical Records Department by calling [phone], Monday through Monday between 8 a.m. and [...] Call your local pharmacy or go to http://Usabilla/[email or web address] to find one close to you.3.Make use of household items: Use cat litter or old coffee grounds to dispose medications if other options arenot available. Mix your drugs with these household products, seal them in an airtight container andthrow it into the garbage. Call [facility]: [phone] to be sure your drugs can be [...] aware that I should contact my doctor. Patient/Software Developer Mid Level Signature: Date/Time: Relationship to Patient: Witness Name/Signature: Date/Time: [facility] [id number] Note Discharge Instructions Thank you for allowing [facility] to assist you with your healthcare needs. The following is importantdischarge information regarding your hospital visit. Your Care Team ALFONSO OZUNA SNUFF CONTAINER INSPECTOR-MATERIALS RESEARCH ENGINEER What to do next Scheduled Follow-Up Appointments Appointment Type When With Where [facility] Up 12/06/2024 03:30 PM EST NORA ROBERT [facility] Confirmed Follow Up Appointments Follow Up with Mahnaz Moore for skilled care, report to [phone] When:Within 1-2 days Follow Up with ALFONSO OZUNA When:Within 1-2 days Where:[address] [place] [address]- [phone] Business (1) The Following Activity and Diet [...] to receive it can visit one of [facility] vaccine clinics. There are many vaccine clinic locations within the [facility]. For locations and available times, please visit [email or web address].gov/. It is important to note that some COVID mobile vaccine clinics are held outdoors and may be canceled in rainy or stormy conditions. To learn more about pediatric vaccinations (ages 5-11), we invite you to visit the [facility] webpage. https://www.[facility].org/pages/3879-Avdex-Nlsdykhuwui-Aoluvgbuvp-Clmsj-Zwi stions.htmlTo learn more about the COVID-19 vaccine, we invite you to visit the CDC website for a list of frequently asked questions.https://www.cdc.gov/coronavirus/2019-ncov/vaccines/faq.html [facility] Patient Portal Access Instructions: Stay connected with your healthcare team and access your personal medical information anytime with the [facility] Patient Portal. Please follow the directions below to create your [facility] account: 1.Access the email account you provided upon registration to the hospital/physician office.2.Look for an invitation email from [facility].3.Open the email and access the invitation link: AcceptInvitation to [facility].4.Fill in the required lr to create your account. To access your account, visit mar[email or web address]. Click the blue button labeled Access Patient [...] who you will allowto register on the [facility] Patient Portal for access to your information. You can also access the [facility] SolutionsChart Patient Portal on the [facility] Anywhere benitez. Simply click on Patient Portal and then log into your account. If you would like to receive a full copy of your medical records, please contact the [facility] Medical Records Department by calling [phone], Monday through Monday between 8 a.m. and [...] Call your local pharmacy or go to [email or web address] to find one close to you.3.Make use of household items: Use cat litter or old coffee grounds to dispose medications if other options arenot available. Mix your drugs with these household products, seal them in an airtight container andthrow it into the garbage. Call [facility]: [phone] to be sure your drugs can be [...] aware that I should contact my doctor. Patient/Software Developer Mid Level Signature: Date/Time: Relationship to Patient: Witness Name/Signature: Date/Time: [facility] [id number] Respiratory therapy Hospital Progress note Respiratory Therapy [...] by DESHAWN Hill on 11/09/2024 07:30 AM [facility] [id number] Note Subjective: Patient seen for pneumonia versus [...] 08 06:19)L 54(NOV 07 23:30)70(NOV 08 06:19) QSF559(NOV 08 14:34)L 87(NOV 08 11:03)H 198(NOV 08 [...] LOVE CARTER MD on 11/08/2024 03:14 PM [facility] CampusRtiatpmc77-57-5757 Note Date of Service 11/07/23 Subjective This is ICU day #4 for Marcela, a 69-year-old female past medical history coronary artery disease status post stenting in the , stress-induced cardiomyopathy with recovered ejection fraction, hypertension, dyslipidemia, COPD, tobacco abuse, bipolar disorder, GERD, anxiety and depression who pres ented as transfer from [facility] with acute respiratory failure requiring intubation. Initial saturation on 4 L nasal cannula was 70%. Lactic acid was elevated at 4.6. She initially went to ER at [facility] with shortness of breath and wheezing. [...] EMILIO DERAS MD on 11/07/2024 11:10 AM [facility] [id number] Consult note Date of Service 11/05/2024 Reason [...] Problem List/Past Medical History Ongoing CAD in [place] artery Cardiomyopathy Procedure/Surgical History Echocardiogram: 09/04/23 Cardiac [...] JACQUELINE FAUSTIN DPM on 11/05/2024 05:02 PM [facility] [id number] Note* Exam Date Time Procedure Performing Provider Status 11/07/24 6:39 AM XR Chest 1 View GENARO NO MD; Auth (Verified) [id number] ORIGINAL EXAMINATION: ONE XRAY VIEW OF THE [...] 11/07/2024 6:54:29 AM Ordering Provider: EMILIO REYES [facility] [id number] Note Date of Service 11/06/2024 Subjective This is ICU day #3 for Marcela, a 69-year-old female past medical history coronary artery disease status post stenting in the , stress-induced cardiomyopathy with recovered ejection fraction, hypertension, dyslipidemia, COPD, tobacco abuse, bipolar disorder, GERD, anxiety and depression who pres ented as transfer from [facility] with acute respiratory failure requiring intubation. Initial saturation on 4 L nasal cannula was 70%. Lactic acid was elevated at 4.6. She initially went to ER at [facility] with shortness of breath and wheezing. [...] EMILIO DERAS MD on 11/06/2024 10:46 AM [facility] [id number] Note* Exam Date Time Procedure Performing Provider Status 11/06/24 6:28 AM XR Chest 1 View GENARO NO MD; Auth (Verified) [id number] ORIGINAL EXAMINATION: ONE XRAY VIEW OF THE [...] 11/06/2024 6:39:04 AM Ordering Provider: EMILIO REYES [facility] [id number] Consult note Date of Service 11/05/2024 Reason [...] Problem List/Past Medical History Ongoing CAD in [place] artery Cardiomyopathy Procedure/Surgical History Echocardiogram: 09/04/23 Cardiac [...] JACQUELINE FAUSTIN DPM on 11/05/2024 05:02 PM [facility] [id number] Note Date of Service 11/05/2024 Subjective This is ICU day #2 for Marcela, a 69-year-old female past medical history coronary artery disease status post stenting in the , stress-induced cardiomyopathy with recovered ejection fraction, hypertension, dyslipidemia, COPD, tobacco abuse, bipolar disorder, GERD, anxiety and depression who pres ented as transfer from [facility] with acute respiratory failure requiring intubation. Initial saturation on 4 L nasal cannula was 70%. Lactic acid was elevated at 4.6. She initially went to ER at [facility] with shortness of breath and wheezing. [...] EMILIO DERAS MD on 11/05/2024 01:07 PM [facility] CampusLbegrxas43-55-1293 Note* Exam Date Time Procedure Performing Provider Status 11/05/24 10:45 AM Echocardiogram, Adult - CV MARY BERNAL MD; Auth (Verified) [facility] [id number] Note* Exam Date Time Procedure Performing Provider Status 11/05/24 6:27 AM XR Chest 1 View GENARO NO MD; Auth (Verified) [id number] ORIGINAL EXAMINATION: ONE XRAY VIEW OF THE [...] 6:36:29 AM Ordering Provider: VANDANA DOS SANTOS [facility] [id number] Note* Exam Date Time Procedure Performing Provider Status 11/04/24 8:[address] Angiography Chest w/ Contrast BELLO THURMAN MD; Auth (Verified) [id number] ORIGINAL EXAMINATION: CTA OF THE CHEST 11/04/2024 [...] 11/04/2024 8:33:11 PM Ordering Provider: KAYLA RYAN [facility] [id number] Note. MICRO - Microbiology PROCEDURE: Streptococcus Pneumoniae [...] Locations *1: This test was performed at: [address]01-13-2025 Note. MICRO - Microbiology PROCEDURE: Legionella [...] Locations *1: This test was performed at: [address] [id number] History and physical note Date of Service 11/04/2023 Chief Complaint breathlessnessx1 day History of Present Illness Patient is a 69 year old female who presents to [facility] s a transfer from [facility] on 11/04/2024 for concerns of breathlessness [...] documentation that was sent from [facility]. Per documentation, appears that patient was [...] While in the ER at [facility], patient was also found to have an irregularly irregular rhythm and was also tachycardic all the way up to 143 bpm.For this purpose as well as elevated blood pressures, patient was given Cardizem loading as well asCardizem drip. On the way via the ambulance to [facility], patient converted and is now in normal sinus rhythm. Roughly at about 10:30 AM this morning. While at [facility] preliminary vitals, Lab work, radiological tests [...] Problem List/Past Medical History Ongoing CAD in [place] artery Cardiomyopathy Procedure/Surgical History Echocardiogram: 09/04/23 Cardiac [...] KAYLA RYAN MD on 11/04/2024 03:48 PM [facility] CampusEtrkqiit20-30-0191 Evaluation + Plan noteExtracted from: Title:History and [...] protocols. -Obtain imaging reads from [facility]. -For the time being, we will [...] and depression who presented as transfer from [facility] with acute respiratory failure requiring intubation. Initial saturation on 4 L nasal cannula was 70%. Lactic acid was elevated at 4.6. She initially went to ER at [facility] with shortness of breath and wheezing. She [...] Date:12/06/2024 03:30:00 PM Scheduled Provider:NORA ROBERT Location:[facility] Appointment Type:CV Hospital Follow Up Diagnostic Tests Pending * Culture Respiratory with Gram Stain 11/04/24 Future Scheduled Tests Laboratory* Basic Metabolic Panel 01/22/24 * Basic Metabolic Panel 02/08/24 * Basic Metabolic Panel 01/31/24 [facility] 01-13-2025 Note* Exam Date Time Procedure Performing Provider Status 11/04/24 12:34 PM XR Abdomen AP ARANZA REDDY MD; Auth (Verified) [id number] ORIGINAL EXAMINATION: ONE XRAY VIEW OF THE [...] Sign Date: 11/04/2024 12:56:39 PM Ordering Provider: [facility]01-13-2025 Note* Exam Date Time Procedure Performing Provider Status 11/04/24 12:32 PM XR Chest 1 View ARANZA REDDY MD; [facility] (Verified) [id number] ORIGINAL EXAMINATION: ONE XRAY VIEW OF THE [...] Sign Date: 11/04/2024 12:56:39 PM Ordering Provider: [facility]01-13-2025 History and physical note Date of Service 11/04/2023 Chief Complaint breathlessnessx1 day History of Present Illness Patient is a 69 year old female who presents to [facility] s a transfer from [facility] on 11/04/2024 for concerns of breathlessness [...] documentation that was sent from [facility]. Per documentation, appears that patient was [...] While in the ER at [facility], patient was also found to have an irregularly irregular rhythm and was also tachycardic all the way up to 143 bpm.For this purpose as well as elevated blood pressures, patient was given Cardizem loading as well asCardizem drip. On the way via the ambulance to [facility], patient converted and is now in normal sinus rhythm. Roughly at about 10:30 AM this morning. While at [facility] preliminary vitals, Lab work, radiological tests [...] protocols. -Obtain imaging reads from [facility]. -For the time being, we will [...] Problem List/Past Medical History Ong[place]ing CAD [place] artery Cardiomyopathy Procedure/Surgical History Echocardiogram: 09/04/23 Cardiac [...] KAYLA RYAN MD on 11/04/2024 03:48 PM [facility] CampusRmcqlmux16-21-2471 [facility]12-12-2024 History of Present illness Narrative* Susan Fontana APRN-MATERIALS RESEARCH ENGINEER - 10/03/2024 2:10 PM EST Subjective Patient [...] June she had COPD exacerbation, went to [place] and was transferred to [place] per the patient. Rpeorts since that admission she still uses albuterol daily, and trelegy daily. She is currently taking Plavix, ASA and aspirin, she is unsure if she had an MO in the past or who started her [...] Referral to Cardiology 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, unspecified vessel [...] start losartan 50mg daily documented in this [facility] Work Phone: 1(591) 442-600111-27-2023 History of Present illness Narrative* Elvin Blanc PA-C - 09/18/2023 11:50 AM EST Subjective Patient ID: Zabrina Hsu is a 68 y.o. female who presents for Establish Care (Patient here to get established as a new patient and transferring from [place]./Patient dx with COPD, seen in ER last week for SOB and put on Oxygen 2 liters daily./Colonoscopy, mammogram and pap test done over 10years, bone density never done.). HPI Patient presents to [facility]. Patient is a very poor historian. Chronic illnesses were essentially deduced by looking at the med list. Currently patient is treated for coronary artery disease, COPD, heart failure, hypertension, and dyslipidemia. Patient currently taking Plavix, Trelegy, Lasix, metoprolol, and Crestor in management of these. Patient was recently admitted to hospital in [facility]. Patient is not sure why stating simply [...] T4 if abnormal 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, unspecified vessel [...] type (CMS/HCC) [I25.110] 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, unspecifiedvessel or lesion type (CMS/HCC) [I10] Primary hypertension [I50.9] Congestive heart failure, unspecified HF chronicity, unspecified heart failure type (CMS/HCC) documented in this [facility] Work Phone: 1(562) 193-410011-16-2023 Note. MICRO - Microbiology PROCEDURE: Blood Culture [...] Locations *1: This test was performed at: [address], [facility] , [facility] ([place])09-07-2023 Note. MICRO - Microbiology PROCEDURE: Blood Culture [...] Locations *1: This test was performed at: [address], [address] [place], [place] [address]60409-07-2023 Note. MICRO - Microbiology PROCEDURE: Blood Culture [...] Locations *1: This test was performed at: [address], [address] [place] [address] ([facility]09-07-2023 Note. MICRO - Microbiology PROCEDURE: Blood Culture [...] Locations *1: This test was performed at: [address], [address] [place] [address] ([place])09-06-2023 Hospital Discharge instructions Patient Education 09/06/2023 11:21:47 [...] Document Reviewed: 10/10/2014 ExitCare Patient Information 2015 DVS Intelestream. This information is not intended to replace [...] breathing. Follow these instructions at home: Take wleu-zph-lvgzpcl and prescription medicines only as told by [...] Document Reviewed: 04/26/2017 Lien Patient Education 2020 [employer]. 09/06/2023 11:20:40 Home Oxygen Use, Adult Home [...] oxygen Your health care provider or a merchandiser retail representative from your medical fee clerk company will show you how touse your [...] move around. Follow instructions from your medical fee clerk company about how to safely secure your tank. Make sure you have enough oxygen for the amount of time you will be away from home. If you are planning air travel, contact the airline to find out if they allow the use of an approved portable oxygen concentrator. You may also need documents from your health care provider and medical fee clerk company before you travel. General safety tips [...] Summary Your health care provider or a merchandiser retail representative from your medical fee clerk company will show you how touse your [...] 12/29/2004 Document Revised: 03/28/2019 Document Reviewed: 05/02/2017 [employer] Patient Education 2020 [employer]. Follow Up Care 09/02/2023 04:20:17 With:Ronaldo Mills will be your oxygen supplier. Please call [phone] for questions or concerns. Address: When: Unknown With:FERCHO VILLASEÑOR Address: [address] [place] [phone] Business (1) When:1-2 days With:SAMMIE ZARAGOZA MD Address: [address] [address] [place] [address]- [phone] When:5 to 7 days With:ASTRID ROBERT MD Address: [address] [place], [place] [address]- [phone] When:09/13/2023 15:00:00 With:[facility] will contact you for an appointment If you have any questions please call:[phone]. Address: When: Unknown [facility] 11-15-2023 Note Discharge Instructions Thank you for allowing [facility] to assist you with your healthcare needs. The following is importantdischarge information regarding your hospital visit. Your Care Team DO FERCHO VILLASEÑOR What to do next Scheduled Follow-Up Appointments Appointment Type When Where [facility] Up 09/13/2023 03:00 PM EST [facility] Follow Up Appointments Follow Up with ASTRID ROBERT MD When 09/13/2023 03:00 PM EST Where: [address] [place], [place] [address]- [phone] Follow Up with SAMMIE ZARAGOZA MD When Within 5 to 7 days Where: [address] [place] [address] [place] [address]- [phone] [facility] will contact you for an appointment If you have any questionsplease call:[phone]. When Where: The Following Activity and Diet [...] needed for wheezing Refills: 3 Pickup at [facility] New clopidogrel (Plavix 75 mg oral tablet) 1 tab(s) by mouth Once a day Refills: 3 Pickup at [facility] New fluticasone/ umeclidinium/ vilanterol (Trelegy Ellipta 100 mcg-62.5 mcg-25 mcg/ inh inhalation powder) 1 puff(s) by inhalation Once a day Refills: 3 at the same time every day. Following administration, rinse mouth with water after use (do not swallow). Pickup at [facility] New furosemide (Lasix 20 mg oral tablet) 1 tab(s) by mouth Once a day Refills: 3 Pickup at [facility] New metoprolol (metoprolol succinate 25 mg oral TABLET extended release) 1 tab(s) by mouth Twice daily with meals Refills: 3 Pickup at [facility] New rosuvastatin (rosuvastatin 20 mg oral tablet) 2 tab(s) by mouth Once a day Refills: 3 Pickup at [facility] New sacubitril-valsartan (Entresto 24 mg-26 mg oral tablet) 1 tab(s) by mouth Two (2) times a day Refills: 3 Pickup at [facility] Unchanged aspirin (aspirin 81 mg oral delayed release tablet) 1 tab(s) by mouth Every day Unchanged buPROPion (Wellbutrin SR) 100 Milligram by mouth Once a day Unchanged oxcarbazepine (Trileptal) 150 Milligram by mouth Daily at bedtime Pharmacy Information [facility]: [address], [place] [id number] [phone] Please take this list to your next [...] tablets, computers, or wireless accessories such as Njuice control, or Grafoid devices. Do not reuse a needle, syringe [...] blood pressure, such as diet pills or qvgsc-cul-qzpe medicine. What are the possible side effects [...] may report side effects to FDA at 7-311-SLC-8499. What other drugs will affect furosemide? Sometimes [...] drugs may affect furosemide, including prescription and wiza-kgg-adnzzuz medicines, vitamins, and herbal products. Not all [...] to ensure that the information provided by [employer]. ('InTouch [employer]iestum') is accurate, up-to-date, and complete, but no guarantee is made to that effect. Drug information contained herein may be time sensitive. TrustID information has been compiled for use by healthcare practitioners and consumers in the [place] and therefore TrustID does not warrant that uses outside of the [place] are appropriate, unless specifically indicated otherwise. Funding Optionss drug information does not endorse drugs, diagnose patients or recommend therapy. [employer] drug information isan informational resource designed to [...] effective or appropriate for any given patient. [facility] does not assume any responsibility for any aspect of healthcare administered with the aid of information [facility] provides. The information contained herein is not intended to cover all possible uses, directions, precautions, warnings, drug interactions, allergic reactions, or adverse effects. If you have questions about the drugs you are taking, check with your doctor, nurse or pharmacist. Copyright 7208-9407 [facility]. Version: 18.. Revision Date: 12/30/2022. metoprolol (oral/injection) [...] may report side effects to FDA at 0-826-UXE-4092. What other drugs will affect metoprolol? Tell your doctor about all your current medicines. Many drugs can affect metoprolol, especially: any other heart or blood pressure medications; epinephrine (Epi-Pen); an antidepressant; an ergot medicine--dihydroergotamine, ergonovine, ergotamine, methylergonovine; or an MAO inhibitor--isocarboxazid, linezolid, phenelzine, rasagiline, selegiline, tranylcypromine. This list is not complete and many other drugs may affect metoprolol. This includes prescription and hxnk-yug-cjasuht medicines, vitamins, and herbal products. Not all [...] to ensure that the information provided by [employer]. ('Multum') is accurate, up-to-date, and complete, but no guarantee is made to that effect. Drug information contained herein may be time sensitive. TrustID information has been compiled for use by healthcare practitioners and consumers in the [place] and therefore TrustID does not warrant that uses outside of the [place] are appropriate, unless specifically indicated otherwise. ShopText drug information does not endorse drugs, diagnose patients or recommend therapy. ShopText drug information isan informational resource designed to [...] effective or appropriate for any given patient. TrustID does not assume any responsibility for any aspect of healthcare administered with the aid of information TrustID provides. The information contained herein is not intended to cover all possible uses, directions, precautions, warnings, drug interactions, allergic reactions, or adverse effects. If you have questions about the drugs you are taking, check with your doctor, nurse or pharmacist. Copyright 0134-2824 [employer]. Version: 19.. Revision Date: 05/31/2023. Education Materials [...] 10/09/2006 Document Revised: 09/25/2013 Document Reviewed: 10/10/2014 [facility] Patient Information 2015 DVS Intelestream. This information is not intended to replace [...] breathing. Follow these instructions at home: Take vocg-waa-inghzri and prescription medicines only as told by [...] 10/14/2014 Document Revised: 09/21/2018 Document Reviewed: 04/26/2017 [employer] Patient Education 2020 [employer]. Home Oxygen Use, Adult When a medical [...] oxygen Your health care provider or a merchandiser retail representative from your medical fee clerk company will show you how touse your [...] move around. Follow instructions from your medical fee clerk company about how to safely secure your tank. Make sure you have enough oxygen for the amount of time you will be away from home. If you are planning air travel, contact the airline to find out if they allow the use of an approved portable oxygen concentrator. You may also need documents from your health care provider and medical fee clerk company before you travel. General safety tips If you use an oxygen cylinder, make sure it is in a stand or secured to an object that will not move (fixed object). If you use liquid oxygen, make sure its container is kept upright. If you use an oxygen concentrator: ? Tell your [employer]. Make sure you are given priority service [...] Summary Your health care provider or a merchandiser retail representative from your medical fee clerk company will show you how touse your [...] 12/29/2004 Document Revised: 03/28/2019 Document Reviewed: 05/02/2017 [employer] Patient Education 2020 [employer]. Additional Information VACCINATE! IT SAVES LIVES! Members of the community who have not yet received the COVID-19 vaccine and would like to receive it can visit one of [facility] vaccine clinics. There are many vaccine clinic locations within the [facility]. For locations and available times, please visit [email or web address].coronavirus.[place].gov/. It is important to note that some COVID mobile vaccine clinics are held outdoors and may be canceled in rainy or stormy conditions. To learn more about pediatric vaccinations (ages 5-11), we invite you to visit the [facility] webpage. https://www.[facility].org/pages/8054-Gurwp-Gnbkzlanoyr-Tfjztwaiet-Tyxpg-Men stions.htmlTo learn more about the COVID-19 vaccine, we invite you to visit the CDC website for a list of frequently asked questions.https://www.cdc.gov/coronavirus/2019-ncov/vaccines/faq.html [employer] Patient Portal Access Instructions: Stay connected with your healthcare team and access your personal medical information anytime with the [employer] Patient Portal. Please follow the directions below to create your [facility] account: 1.Access the email account you provided upon registration to the hospital/physician office.2.Look for an invitation email from [facility].3.Open the email and access the invitation link: AcceptInvitation to [facility].4.Fill in the required lr to create your account. To access your account, visit vine [email or web address]. Click the blue button labeled Access Patient [...] who you will allowto register on the [facility] Patient Portal for access to your information. You can also access the [facility] Patient Portal on the [facility] LoyaltyLionwhere benitez. Simply click on Patient Portal and then log into your account. If you would like to receive a full copy of your medical records, please contact the [facility] Medical Records Department by calling [phone], Monday through Monday between 8 a.m. and [...] Call your local pharmacy or go to http://bit.ly/1D9Ya3n to find one close to you.3.Make use of household items: Use cat litter or old coffee grounds to dispose medications if other options arenot available. Mix your drugs with these household products, seal them in an airtight container andthrow it into the garbage. Call [facility]: [phone] to be sure your drugs can be [...] combine opioids with (more content not included)... [facility] [id number] Respiratory therapy Hospital Progress note Respiratory Therapy [...] by DESHAWN Cuenca on 09/06/2023 10:21 AM [facility] [id number] Discharge summary Date of Service 09/06/23 Discharge [...] (R74.8 - ICD-10-CM) Atherosclerotic heart disease of [place] coronary artery without angina pectoris (I25.10 - [...] BID, # 60 tab(s), 3 Refill(s), Pharmacy: [facility], 157.5, cm, 09/02/23 6:47:00 EST, [...] qDay, # 30 tab(s), 3 Refill(s), Pharmacy: [facility], 157.5, cm, 09/02/23 6:47:00 EST, Height, kg, 09/02/23 6:47:00 EST, Dosing Weight Ordered: Plavix 75 mg oral tablet,Dose : 75 mg = 1 tab(s), Oral, qDay, # 30 tab(s), 3 Refill(s), Pharmacy: [facility], 157.5, cm, 09/02/23 6:47:00 EST, [...] swallow)., # 60 EA, 3 Refill(s), Pharmacy: [facility], 157.5, cm, 09/02/23 6:47:00 EST, Height, kg, 09/02/23... Ordered: albuterol MDI (90 mcg/inh) CFC free inhalation aerosol,1 puff(s), Inhalation, q4h, PRN as needed for wheezing, # 8.5 gram(s), 3 Refill(s), Pharmacy: [facility], 157.5, cm, 09/02/23 6:47:00 EST, Height, kg, 09/02/23 6:47:00 EST, Dosing Weight Discontinued: losartan,Start: 09/04/23 11:43:00 EST, Dose = 25 mg, = 1 tab(s), Oral, qDay, 09/04/2311:43:00 EST Discontinued: losartan 25 mg oral tablet,Dose : 25 mg = 1 tab(s), Oral, qDay, # 30 tab(s), 3 Refill(s), Pharmacy: [facility], 157.5, cm, 09/02/23 6:47:00 EST, Height, kg, 09/02/23 6:47:00 EST, Dosing Weight Ordered: metoprolol succinate 25 mg oral TABLET extended release,Dose : 25 mg = 1 tab(s), Oral, BIDM, # 60 tab(s), 3 Refill(s), Pharmacy: [facility], 157.5, cm, 09/02/23 6:47:00 EST, Height, kg, 09/02/23 6:47:00 EST, Dosing Weight Ordered: rosuvastatin 20 mg oral tablet,Dose : 40 mg = 2 tab(s), Oral, qDay, # 60 tab(s), 3 Refill(s), Pharmacy: [facility], 157.5, cm, 09/02/23 6:47:00 EST, [...] When 09/13/2023 03:00 PM EST Where: [address] [facility] [place] [address]- [phone] Follow Up with SAMMIE ZARAGOZA MD When Within 5 to 7 days Where: [address] [address] [place] [phone] Follow Up with [place] [facility] will contact you for an appointment If you have any questionsplease call:[phone]. When Where: Follow Up Appointments No qualifying data available. Follow Up Labs/Studies Discharge Labs No Follow-up Labs Discharge Studies No Follow-up Studies Discharge Diet No qualifying data available. Discharge Activity No qualifying data available. Readmission Risk/Palliative Score LACE Score: 11 (09/04/23 12:59:00) Palliative Total Score: 1 (09/04/23 13:00:00) Digitally Signed by CARLOS NOONAN MD on 09/06/2023 10:20 AM [facility] [id number] Cardiology Progress note Subjective No acute overnight [...] CARLOS NOONAN MD on 09/05/2023 03:29 PM [facility] [id number] Cardiology Progress note Subjective No acute overnight [...] CARLOS NOONAN MD on 09/04/2023 12:14 PM [facility] [id number] Note Date of Service 09/04/2023 Chief Complaint [...] by ROSY MORALEZ on 09/04/2023 02:58 PM [facility] [id number] Pulmonary Progress note Date of Service 09/04/2023 [...] exam. Agree with diuresis Sammie Zaragoza M.D., [facility] Digitally Signed by SAMMIE ZARAGOZA MD on 09/04/2023 01:22 PM [facility] CampusYxhvharb12-00-2731 Cardiology Progress note Subjective No acute overnight [...] be due to COPD versus CHF exacerbation. [facility] results personally reviewed along with TTE, RWMA abnormality with septal hypokinesis, distal LAD disease along with OM and Lcx which will be medically managed. IVC is 2.4cm without >50% collapsability suggesting 15 estimate RA pressure. Will continue diuresis with IV lasix. [facility] findings in conjunction with TTE favors Takotsubo's cardiomyopathy. Her is CAD will be medically managed with DAPT (ASA and plavix therapy) Will initiate crestor, losartan Cont. Metoprolol Digitally Signed by CARLOS NOONAN MD on 09/04/2023 12:03 PM Digitally Signed by CARLOS NOONAN MD on 09/04/2023 12:14 PM [facility] [id number] Note Date of Service 09/04/2023 Chief Complaint [...] by ROSY MORALEZ on 09/04/2023 02:58 PM [facility] [id number] Note* Exam Date Time Procedure Performing Provider Status 09/04/23 10:04 AM Echocardiogram, Adult - CV Auth (Verified) [facility] 11-13-2023 Note. MICRO - Microbiology PROCEDURE: Urine [...] Locations *1: This test was performed at: [facility], [address] [place] [address], [id number] , [facility])09-04-2023 Note. MICRO - Microbiology PROCEDURE: Culture Respiratory [...] Locations *1: This test was performed at: [facility], [address] [place] [address], [address] [place] [address])09-04-2023 Note ORIGINAL EXAMINATION: ONE XRAY VIEW OF [...] Sign Date: 09/04/2023 6:42:09 AM Ordering Provider: [facility]11-12-2023 Note Date of Service 09/03/2023 Reason [...] continue to follow-up. Note was written using [employer] muleser software. Some of the meaning of the words and sentences might have changed during muleser, if there was ever some confusion about [...] ROSINA BRO MD on 09/03/2023 05:02 PM [facility] [id number] Cardiology Consult note Date of Service 09/03/2023 [...] of this technology. Sonia Canseco DO, MS Cena (PGY-6) Pager [phone]/ Cortext Problem List/Past Medical History Ongoing No [...] SONIA CANSECO DO on 09/03/2023 08:21 AM [facility] [id number] Note* Exam Date Time Procedure Performing Provider Status 09/03/23 11:40 AM Cardiac Catheterization -CV Auth (Verified) [facility] 11-12-2023 Note Date of Service 09/03/2023. Day #2 in MICU Radha Hsu is a 68-year-old female with a past medical history of COPD, bipolar disorder, tobacco abuse, GERD, anxiety, depression, suicidal attempt in the past [2010], and personality disorder.The patient presented to [facility] for shortness of breath. The patient [...] results, the patient was transferred to the [facility] ICU. During this admission it was determined [...] JHONNY VALENCIA MD on 09/03/2023 11:32 AM [facility] [id number] Nurse Progress note Attempted to call patient's , per patient request, to update him on patient's plan of care. did not answer home phone, voicemail box was full and unable to leave a message. Patient provided 's cell phone number. No answer and again unable to leave a message. Digitally Signed by Pamella Tao RN on 09/03/2023 09:17 AM [facility] [id number] Cardiology Consult note Date of Service 09/03/2023 [...] of this technology. Sonia Canseco DO, MS Cena (PGY-6) Pager [phone]/ Cortext Problem List/Past Medical History Ongoing No [...] SONIA CANSECO DO on 09/03/2023 08:21 AM [facility] [id number] NoteSinus rhythm Atrial premature complex Prolonged QT interval T WAVE INVERSION CONCERNING FOR ISCHEMIA Electronic Signature: ADAM MALLORY MD 09/03/2023 16:06:55[facility] 11-11-2023 Note. MICRO - Microbiology PROCEDURE: Blood [...] Locations *1: This test was performed at: [address]09-02-2023 Note. MICRO - Microbiology PROCEDURE: Blood [...] Locations *1: This test was performed at: [address] ([facility]09-02-2023 Note. MICRO - Microbiology PROCEDURE: Blood Culture [...] Locations *1: This test was performed at: [address], [facility] , [facility]09-02-2023 Note. MICRO - Microbiology PROCEDURE: [...] Locations *1: This test was performed at: [address], [facility] , [facility]09-02-2023 NoteSinus rhythm Atrial premature complex Probable anterior infarct, age indeterminate Prolonged QT interval Electronic Signature: ADAM MALLORY MD [facility] NoteSinus rhythm Atrial premature complex Anterior infarct, old Nonspecific T abnormalities, lateral leads Prolonged QT interval Electronic Signature: ADAM MALLORY MD 09/03/2023 16:06:01[facility] 11-11-2023 Evaluation + Plan noteExtracted from: Title:History [...] was 3.7 on admission The patient's admitting [facility] lactic acid was 1.8. We will not [...] Appointments Appointment Date:09/13/2023 03:00:00 PM Scheduled Provider: Location:[facility] Appointment Type:[facility] Follow Up Diagnostic Tests Pending * Legionella Urine Ag 09/02/23 * Streptococcus Pneumoniae Urine Antig 09/02/23 [facility] 11-11-2023 History and physical note Date of [...] JHONNY VALENCIA MD on 09/02/2023 01:24 PM [id number] Note ORIGINAL EXAMINATION: LIMITED ABDOMINAL [id number]/11/2023 12:19 pm COMPARISON: None HISTORY: ORDERING SYSTEM [...] Date: 09/02/2023 2:27:43 PM [facility] NoteSinus rhythm Atrial premature complex Anterior infarct, old Nonspecific T abnormalities, lateral leads Prolonged QT interval Electronic Signature: ADAM MALLORY MD 09/03/2023 16:05:52[facility] 11-11-2023 Note ORIGINAL EXAMINATION: ONE XRAY VIEW [...] Sign Date: 09/02/2023 8:06:12 AM Ordering Provider: [facility]11-11-2023 History and physical note Date of Service 09/02/2023 Chief Complaint Shortness of breath History of Present Illness Marcela Hsu is a 68-year-old female with a past medical history of COPD, bipolar disorder, tobacco abuse, GERD, anxiety, depression, suicidal attempt in the past [2010], and personality disorder.The patient presented to [facility] for shortness of breath. The patient [...] results, the patient was transferred to the [facility] ICU. Of note Echo on 12/27/2016: Ejection [...] was 3.7 on admission The patient's admitting [place] lactic acid was 1.8. We will not [...] PM Digitally Signed by JHONNY VALENCIA MD [facility] Diagnosis Chronic obstructive pulmonary disease, unspecified COPD type (CMS/HCC)- Primary 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, unspecified vessel or lesion type (CMS/HCC) Primary hypertension Unspecified essential hypertension Congestive heart failure, unspecified HF chronicity, unspecified heart failure type (CMS/HCC) documented in this encounter [facility] Work Phone: Evaluation note* Diagnosis Primary hypertension- Primary Unspecified essential hypertension Congestive heart failure, unspecified HF chronicity, unspecified heart failure type 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, unspecified vessel or lesion type Chronic obstructive pulmonary disease, unspecified COPD type (Multi) Health maintenance examination Unspecified general medical examination documented in this encounter [facility] Work Phone: Hospital course Narrative No data available for this section [facility] Reason for referral (narrative)* Consultation (Routine) - Authorized Specialty Diagnoses / Procedures Referred By Rdaha madsen Referred To Contact Primary Care Procedures Follow Up In Primary Care - Established Elvin Blanc PA-C [address] [facility] [place] [address] Referral ID Status Reason Start Date Expiration Date V isits Requested Visits Authorized [id number] Authorized 09/18/2023 09/17/2024 1 1 [facility] Work Phone: Summary Purpose Family History No [...] section and content) DATE CREATED AUTHOR 11/04/2020 [facility] DATE CREATED AUTHOR AUTHOR'S ORGANIZ ATION 06/25/2021 [facility] DATE CREATED AUTHOR AUTHOR'S ORGANIZ ATION 09/03/2023 [facility] ([place]) DATE CREATED AUTHOR AUTHOR'S ORGANIZ ATION 09/22/2023 [facility] ([place]) DATE CREATED AUTHOR AUTHOR'S ORGANIZ ATION 07/05/2025 [facility] DATE CREATED AUTHOR AUTHOR'S ORGANIZ ATION 07/10/2025 [facility] DATE CREATED AUTHOR AUTHOR'S ORGANIZ ATION 07/11/2025 [facility] Ambulatory Patient Care team informatio n (unrecognized section and content) Accident Report Clerk Relationship Specialty Start Date End Date Elvin Blanc PA-C [address] [facility] [place] [address] PCP - General Internal Medicine 09/12/23 Fercho Villaseñor DO [address] [facility] [place] [address] PCP - [employer] PCP 07/23/23 Accident Report Clerk Relationship Specialty Start Date End Date Susan Fontana APRN-[employer]ERIALS RESEARCH ENGINEER [address] [facility] [place] [address] PCP - General Family Medicine 10/03/24 Reason for Visit (unrecogniz ed section and content) Reason Comments Establish Care Patient here to get established as a new patient and transferring from [place].Patient dx with COPD, seen in ER last [...] BE BASED ON THE PRIMARY CLINICAL RECORDS. [employer] provides no warranty or guarantee of the accuracy or completeness of information in this document.
--- NOTE | 2025-07-16 08:12 | EX.PCM.CONCC ---
Assessment & Plan Assessment/Plan (1) Acute respiratory failure with hypoxia and hypercapnia: PLAN: Plan RECOMMENDATIONS: 1. Continue assist-control mode of mechanical ventilation. Wean FiO2 and PEEP as tolerated. 2. Obtain follow-up ABG. 3. Obtain follow-up chest x-ray to confirm appropriate endotracheal tube placement. 4. Empiric antimicrobials, while awaiting infectious workup. 5. Continue scheduled bronchodilators and steroids. 6. Continue diuresis as tolerated by hemodynamics and renal function. 7. Propofol and fentanyl for sedation. Discontinue Versed infusion. 8. Continue appropriate ICU prophylaxis. IMPRESSIONS: 1. Acute respiratory failure with hypoxemia and hypercapnia Most likely multifactorial in etiology. The patient has a known history of COPD and a longstanding tobacco abuse history, but presented to the emergency department profoundly hypertensive with what I suspect is a component of flash pulmonary edema. The patient was ultimately intubated in the emergency department. She will be continued on assist-control mode of mechanical ventilation, with a goal to wean FiO2 and PEEP to maintain saturations at or above 90%. Echocardiogram is currently pending. Given that I cannot definitively rule out infection, we will plan to continue empiric antibiotics, pending culture results. She will be continued on scheduled bronchodilators and IV steroids as well. Diuretics will be continued, as tolerated by hemodynamics and renal function. The patient's Versed infusion will be discontinued. She will be continued on propofol and fentanyl for sedation. 2. History of coronary artery disease status post PCI/history of hypertrophic cardiomyopathy/valvular heart disease Continue diuretics as tolerated by hemodynamics and renal function. Follow-up echocardiogram is currently pending. 3. Chronic tobacco dependency/depression/glaucoma/hyperlipidemia Complicates care, management, recovery and prognosis. Continue supportive measures as noted above. PT/OT to evaluate the patient once medically stabilized. Hold on tube feeding initiation today. TIME: 40 minutes of critical care time, independent of procedures, was spent addressing the patient's acute respiratory failure with hypoxemia and hypercapnia, review of all data and collaboration with the care team. HPI Consult Data Date of Consult: 07/16/25 HPI Narrative Reason for Consultation: Acute respiratory failure HPI Narrative: The patient is a 70-year-old female, with a history as outlined below, who presented to the emergency department on July 16 with shortness of breath. The patient has a known history of COPD and chronic nicotine dependency, having been evaluated in the pulmonary medicine clinic back in 2020. The patient has been lost to follow-up since that time. Her medical history is also significant for coronary artery disease status post PCI along with an atypical variant of hypertrophic cardiomyopathy. On presentation to the emergency department, the patient was documented to have a temperature of 96.6 ?F. She was tachycardic and notably hypertensive with a presenting blood pressure of 245/99 mmHg. The patient was quite hypoxemic on presentation as well. Laboratory evaluation was notable for a white blood cell count of 13,000. Hemoglobin and platelet count were stable. Initial arterial blood gas was notable for a pH of 7.06 with a pCO2 of 75 and pO2 of 73. Chemistry profile was notable for a creatinine of 1.27. Lactate was elevated at 3.2. AST and ALT were increased at 158 and 118, respectively. Troponin was increased to 114. BNP was elevated at 7963. Urine analysis was unremarkable. CT head revealed low-density in the deep white matter on the right and left consistent with chronic ischemic change. CTA chest showed no evidence for pulmonary embolism. There was extensive bilateral emphysematous changes with interstitial septal thickening and ground glass opacities along with bilateral pleural effusions. The patient was ultimately placed on scheduled bronchodilators, IV steroids, antimicrobials and Lasix. She was admitted to the medical intensive care unit for further management. [facility] Medical History 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 Non-rheumatic mitral regurgitation Depression Anxiety Pulmonary hypertension Essential hypertension Pure hypercholesterolemia Atherosclerotic heart disease of [place] coronary artery without angina pectoris Home Medications ?Medication ?Instructions ?Recorded ?Last Taken ?Type aspirin 81 mg tablet,delayed 81 mg PO DAILY 07/08/19 Unknown History release (Adult Low Dose Aspirin) atorvastatin 40 mg tablet 40 mg PO QHS PRN 07/08/19 Unknown History nitroglycerin 0.4 mg sublingual 0.4 mg sublingual Q5-15M PRN chest 07/08/19 Unknown History tablet pain oxybutynin chloride 10 mg 10 mg PO DAILY 07/08/19 Unknown History tablet,extended release 24 hr venlafaxine 75 mg tablet 75 mg PO BID 07/08/19 Unknown History albuterol sulfate 90 mcg/actuation 2 puff inhalation Q4H PRN 12/23/20 Unknown Rx aerosol inhaler (Ventolin HFA) shortness of breath or wheezing #8.5 grams brimonidine 0.2 % eye drops ml ophthalmic (eye) 06/16/21 Unknown History dorzolamide 2 % eye drops 1 drp ophthalmic (eye) TID 06/16/21 Unknown History lisinopril 20 mg tablet 20 mg PO DAILY #90 tabs 06/16/21 Unknown Rx Allergy/AdvReac Type Severity Reaction Status Date / Time No Known Allergies Allergy Unverified 06/16/21 14:41 Family History Mother Diabetes Surgical History History of coronary artery stent placement (01/02/17) History of hysterectomy Social History Smoking Status: Current every day smoker tobacco type: cigarettes Tobacco: How many years used: 46 second hand exposure: Yes alcohol intake: never substance use type: does not use caffeine: Yes Type: coffee ROS Review of Systems ROS Unobtainable: due to endotracheal tube Physical Exam Const Constitutional Narrative: The patient is intubated, sedated and mechanically ventilated. She is chronically ill in appearance. General Appearance: frail HEENT normocephalic and head/scalp atraumatic Mouth: endotracheal tube in place and OG tube in place Eyes EOMs intact bilaterally, conjunctivae normal and no scleral icterus Neck supple General: trachea midline Chest Chest Narrative: Increased AP diameter. Resp Auscultation: diminished lung sounds; Negative for rales, rhonchi or wheezes Cardio regular rate and regular rhythm GI normal to inspection, nondistended, normoactive bowel sounds Extremity no clubbing, cyanosis or edema Skin no rashes or lesions noted Neuro Sensorium / Orientation: sedated on vent Lab / Micro Data 07/16/25 03:20 07/16/25 03:20 Labs: Laboratory Results - last 24 hr 07/16/25 03:20: WBC 13.1 H, RBC 3.95 L, Hgb 11.6 L, Hct 37.9, MCV 95.9, MCH 29.4, MCHC 30.6 L, RDW Std Deviation 51.3 H, RDW Coeff of Shivam 14.6, Plt Count 411, MPV 9.7, Immature Gran % (Auto) 2.900 H, Neut % (Auto) 30.6 L, Lymph % (Auto) 56.5 H, [place] % (Auto) 6.4, Eos % (Auto) 2.7, Baso % (Auto) 0.9, Absolute Neuts (auto) 4.0, Absolute Lymphs (auto) 7.43 H, Nucleated RBC % 0, Differential Comment SCANNED, Sodium 137, Potassium 3.7, Chloride 100, Carbon Dioxide 21.7, Anion Gap 15, BUN 17, Creatinine 1.27 H, Estim Creat Clear Calc 34.32 L, Est GFR (MDRD) Non-Af 45 L, BUN/Creatinine Ratio 13.1, Glucose 368 H, Calcium 8.5, Magnesium 2.8 H, Total Bilirubin 0.34, AST 158 H, ALT 118 H, Alkaline Phosphatase 163 H, Total Creatine Kinase 126, Troponin T High Sens 114 H*, NT pro BNP II 7963 H, Total Protein 6.9, Albumin 3.8, Globulin 3.1, Albumin/Globulin Ratio 1.2, Triglycerides 67 07/16/25 04:20: Lactic Acid 3.2 H* 07/16/25 05:29: Troponin T Hi Sens 2 Hr 95 H* Micro: Microbiology 07/16/25 03:44 Mucosa - Nose SARS-CoV-2, Influenza & RSV (PCR) - Final ABG Data ABG results: ABG 07/16/25 03:58 Specimen Type ART Sample Site L Radial pH 7.06 L* Bicarbonate Actual 21.2 L Total CO2 24 Base Excess -9 L O2 Saturation 86 L O2 % 50.0 ABG pCO2 75.1 H* ABG pO2 73 L Steve Test N/A Respiration Rate 20 O2 Delivery Device Adult Vent Vent Mode AC Tidal Volume 400.0 POC PEEP 5 Crit Call To/Read Back Yes Blood Gas Notified Whom Dr Sharif Blood Gas Notified Time 04:00:19 Imaging Radiology Impression Brain CT 07/16/25 03:25 IMPRESSION: There is low-density in the deep white matter on the right and left, and in the right occipital lobe consistent with chronic ischemic change. No acute intracranial pathology. Consider MRI with diffusion scan, or CT perfusion to exclude an acute component. Reading Location: [facility] Chest CTA 07/16/25 03:25 IMPRESSION: No demonstrated PE, or thoracic aortic aneurysm Underlying emphysema with superimposed CHF, pneumonitis, bronchitis, free-flowing bilateral pleural effusions and bibasilar atelectasis ETT tip is in the right mainstem bronchus and should be retracted 3-4 cm, NG tube tip in satisfactory position No suspicious adenopathy Degenerative bony changes [place] Alert: ET tube tip in the SADAF The critical findings in the findings and impression above were relayed directly by me by telephone to Bernardo Sharif on 07/16/2025 at 6:56 am with readback verification. Reading Location: [facility] Abdomen/Pelvis CT 07/16/25 06:40 IMPRESSION: No suspicious solid organ abnormality, there is atrophy of the right kidney compared to the left but no obstructive uropathy or suspicious solid renal lesion. Retained stool throughout the colon which may be impacted No free intraperitoneal fluid, air, or suspicious adenopathy NG tube tip in the body of the stomach Diffuse atherosclerosis Degenerative bony changes Reading Location: [id number] Charges/Coding Procedures Hospitalists Procedures: [id number] Critical Care 1st Hr
--- NOTE | 2025-07-16 08:25 | NURSING ---
Patient admitted to ICU 1 from ED. Patient intubated and sedated, admission assessment completed with the assistance of patient's and son to the best of their knowledge.
[2025-07-16 08:29] LABS: Reflex Lactate? Y
[2025-07-16] MEDS: fentaNYL drip 100 ML 15 MCG CONT INF ×2 (08:35→14:49)
[2025-07-16 08:38] LABS: Cholesterol 233 mg/dL (<=200); cholesterol:hdl ratio screen 3.49
[2025-07-16 08:55] LABS: Low Density Lipoprotein Calc. 146 mg/dL; Triglycerides 99 mg/dL; Very Low Density Lipoprotein 20 mg/dL (5-40)
[2025-07-16] MEDS: Vancomycin HCl 750 MG in 0.9% Normal Saline (250mL Bag) 250 ML 250 MG IV (09:00)
[2025-07-16 09:01] LABS: Mucous, Urine 0 SEEN /hpf (<or=2+); Red Blood Cells-Urine 0 SEEN /hpf (0-5); Squamous Epithelial Cells - UA 0 SEEN /hpf (5-10)
--- NOTE | 2025-07-16 09:05 | RAD_ITS ---
PROCEDURE: CHEST 1 VIEW (PORTABLE) 07/16/2025 REASON FOR EXAM: ETT PLACEMENT TECHNIQUE: Frontal view of the chest. COMPARISON: None FINDINGS: There is an ET tube in position with its tip 7.4 cm above the level of the steve. There is an enteric tube seen with its tip below the field of view of this exam. Heart size is within normal limits. There interstitial infiltrates in the perihilar region bilaterally and in the left upper lung. Lung volumes appear decreased. There is no visible pneumothorax. There is no significant effusion. There is no acute bony abnormality. Aortic calcifications are noted. RAD/Chest 1 View (Portable) IMPRESSION: Tubes and lines in position. There interstitial infiltrates in the perihilar region bilaterally and in the l eft upper lung. Reading Location: [facility]
[2025-07-16 09:13] LABS: Color, Urine Straw (Yellow); Glucose, Dipstick Normal (Normal); Ketone-Dipstick Negative (Negative); Leukocyte Esterase-Dipstick Negative /ul (Negative); Nitrite-Dipstick Negative (Negative); Occult Blood-Urine 10 /ul (Negative); Protein-Dipstick 30 mg/dl (Negative); Specific Gravity, Urine 1.005 (1.002-1.030); Urine Bilirubin Dipstick Negative (Negative)
--- NOTE | 2025-07-16 09:41 | PCM.RX.CS ---
Consult Antibiotic Management Pharmacy has been consulted to manage selected antibiotic: Vancomycin Type of Intervention Type of Consult: New start Suspected Infection Suspected Infection: Pneumonia Labs Labs: Sodium 137 mmol/L (133-145) 07/16/25 03:20 Potassium 3.7 mmol/L (3.3-5.1) 07/16/25 03:20 Chloride 100 mmol/L (98-108) 07/16/25 03:20 Carbon Dioxide 21.7 mmol/L (21.0-32.0) 07/16/25 03:20 Anion Gap 15 (5-15) 07/16/25 03:20 BUN 17 mg/dL (4-19) 07/16/25 03:20 Creatinine 1.27 mg/dL (0.70-1.20) H 07/16/25 03:20 Est GFR (MDRD) Non-Af 45 (>60) L 07/16/25 03:20 BUN/Creatinine Ratio 13.1 RATIO (10-20) 07/16/25 03:20 Glucose 368 mg/dL (70-99) H 07/16/25 03:20 Microbiology Microbiology: Microbiology 07/16/25 08:25 Urine Catheter - Madrigal Legionella Antigen - Final 07/16/25 08:25 Urine Catheter - Madrigal Streptococcus pneumoniae Antigen (M - Final 07/16/25 03:36 Sputum, Induced/[place]ukens Gram Stain - Final 07/16/25 03:44 Mucosa - Nose SARS-CoV-2, Influenza & RSV (PCR) - Final Pharmacy Plan for Drug Dosing Pharmacy Plan for Drug Dosing: NEW START IV VANCOMYCIN Consulting Physician: Leonard Indication: pneumonia Goal Trough: 15-20 mg/dL SrCr: 1.27 mg/dL CrCl: CrCl 34 mL/min Comments: initial ER dose of 750mg given 07/16/25 ~0900 Vancomycin Dose: Will start 750mg Q24H (07/17/25 @ 0900) and get a trough prior to 3rd total dose per policy. Pending Level: 07/18/25 @ 0830 Pharmacy Service will continue to monitor and adjust dosing as required.
[2025-07-16] MEDS: Pantoprazole Sodium 40 MG in 0.9% Normal Saline (100mL MB+) 100 ML 330 MG IV (09:42)
[2025-07-16] MEDS: Aspirin E.C. 81 MG Tablet PO (09:43)
[2025-07-16] MEDS: BRIMONIDINE 0.2% 5ML BOTTLE 1 DRP OPHTHALMIC (09:43)
[2025-07-16 09:46] LABS: Base Excess 6 mmol/L (-2 to +2); FI02 50.0; PEEP 5; PO2 96 mmHG (75-100); RR 20; SITE L Radial; SO2 98 % (95-99)
[2025-07-16 09:47] LABS: Troponin T High Sens 4 HR 93 ng/L (<=14)
--- NOTE | 2025-07-16 12:00 | PN.HOSP_ITS ---
Reason for Visit Chief Complaint: SOB. Subjective Subjective Still on the vent. Veresed changed to fentanyl and BP has improved. Objective Data Objective Data Vital Signs: Vital Signs Temp Pulse Resp BP Pulse Ox O2 Del Method O2 Flow Rate 37.2 C 60 20 H 139/70 H 96 Mechanical Ventilator 15 07/16/25 09:00 07/16/25 11:15 07/16/25 11:15 07/16/25 10:00 07/16/25 11:15 07/16/25 10:00 07/16/25 03:10 FiO2 40 07/16/25 11:15 Oxygen Flow Rate (L/min) 15 Oxygen Delivery Method Mechanical Ventilator Weight: 53.5 kg Body Mass Index (BMI) 20.1 Intake & Output: Intake and Output for Last 24 Hours 07/14/25 07/15/25 07/16/25 23:59 23:59 23:59 Intake Total 788.24 / 788.24 Output Total 1750 / 1750 Balance -961.76 / -961.76 Lab / Micro Data 07/16/25 03:20 07/16/25 03:20 Labs: Laboratory Results - last 24 hr 07/16/25 03:20: WBC 13.1 H, RBC 3.95 L, Hgb 11.6 L, Hct 37.9, MCV 95.9, MCH 29.4, MCHC 30.6 L, RDW Std Deviation 51.3 H, RDW Coeff of Shivam 14.6, Plt Count 411, MPV 9.7, Immature Gran % (Auto) 2.900 H, Neut % (Auto) 30.6 L, Lymph % (Auto) 56.5 H, Day % (Auto) 6.4, Eos % (Auto) 2.7, Baso % (Auto) 0.9, Absolute Neuts (auto) 4.0, Absolute Lymphs (auto) 7.43 H, Nucleated RBC % 0, Differential Comment SCANNED, Sodium 137, Potassium 3.7, Chloride 100, Carbon Dioxide 21.7, Anion Gap 15, BUN 17, Creatinine 1.27 H, Estim Creat Clear Calc 34.32 L, Est GFR (MDRD) Non-Af 45 L, BUN/Creatinine Ratio 13.1, Glucose 368 H, Calcium 8.5, M agnesium 2.8 H, Total Bilirubin 0.34, AST 158 H, ALT 118 H, Alkaline Phosphatase 163 H, Total Creatine Kinase 126, Troponin T High Sens 114 H*, NT pro BNP II 7963 H, Total Protein 6.9, Albumin 3.8, Globulin 3.1, Albumin/Globulin Ratio 1.2, Triglycerides 67 07/16/25 04:20: Lactic Acid 3.2 H* 07/16/25 05:29: Troponin T Hi Sens 2 Hr 95 H*, Triglycerides 99, Cholesterol 233 H, LDL Cholesterol, Calc 146, VLDL Cholesterol 20, HDL Cholesterol 67, Cholesterol/HDL Ratio 3.49 07/16/25 08:25: Urine Color Straw, Urine Clarity Clear, Urine pH 7.0, Ur Specific [place] 1.005, Urine Protein 30 H, Urine Glucose (UA) Normal, Urine Ketones Negative, Urine Occult Blood 10 H, Urine Nitrite Negative, Urine Bilirubin Negative, Urine Urobilinogen Normal, Ur Leukocyte Esterase Negative, Urine RBC 0 SEEN, Urine WBC 0 SEEN, Ur Squamous Epith Cells 0 SEEN, Urine Bacteria 0 SEEN, Urine Mucus 0 SEEN 07/16/25 08:50: Lactic Acid 1.4, Troponin T Hi Sens 4Hr 93 H* 07/16/25 11:24: POC Glucose 152 H Micro: Microbiology 07/16/25 08:25 Urine Catheter - Madrigal Legionella Antigen - Final 07/16/25 08:25 Urine Catheter - Madrigal Streptococcus pneumoniae Antigen (M - Final 07/16/25 03:36 Sputum, Induced/Lukens Gram Stain - Final 07/16/25 03:44 Mucosa - Nose SARS-CoV-2, Influenza & RSV (PCR) - Final ABG Data ABG results: ABG 07/16/25 07/16/25 03:58 09:42 Specimen Type ART ART Sample Site L Radial L Radial pH 7.06 L* 7.49 H Bicarbonate Actual 21.2 L 29.1 H Total CO2 24 30 Base Excess -9 L 6 H O2 Saturation 86 L 98 O2 % 50.0 50.0 ABG pCO2 75.1 H* 38.6 ABG pO2 73 L 96 Steve Test N/A N/A Respiration Rate 20 20 O2 Delivery Device Adult Vent Adult Vent Vent Mode AC AC Tidal Volume 400.0 400.0 POC PEEP 5 5 Crit Call To/Read Back Yes Blood Gas Notified Whom Dr Sharif Blood Gas Notified Time 04:00:19 Radiography Diagnostic Testing: Radiology Impression Brain CT 07/16/25 03:25 IMPRESSION: There is low-density in the deep white matter on the right and left, and in the right occipital lobe consistent with chronic ischemic change. No acute intracranial pathology. Consider MRI with diffusion scan, or CT perfusion to exclude an acute component. Reading [facility] Chest CTA 07/16/25 03:25 IMPRESSION: No demonstrated PE, or thoracic aortic aneurysm Underlying emphysema with superimposed CHF, pneumonitis, bronchitis, free- flowing bilateral pleural effusions and bibasilar atelectasis ETT tip is in the right mainstem bronchus and should be retracted 3-4 cm, NG tube tip in satisfactory position No suspicious adenopathy Degenerative bony changes [place] Alert: ET tube tip in the SADAF The critical findings in the findings and impression above were relayed directly by me by telephone to Bernardo Sharif on 07/16/2025 at 6:56 am with readback verification. Reading Location: [id number] Echocardiogram 07/16/25 06:31 Interpretation Summary Mild concentric left ventricular hypertrophy. Inferior hypokinesis. Estimated LVEF 55%. Stage I diastolic dysfunction. Moderate posterior mitral valve annular calcification. Calcified chord. Mild mitral valve regurgitation. Mild tricuspid valve insufficiency. Mildly calcified aortic valve leaflets. Aortic valve sclerosis without stenosis. Mild (1+) pulmonic valve insufficiency. Ordering Physician: Clarence Zuniga Performed By: Jake Miguel RCS Abdomen/Pelvis CT 07/16/25 06:40 IMPRESSION: No suspicious solid organ abnormality, there is atrophy of the right kidney compared to the left but no obstructive uropathy or suspicious solid renal lesion. Retained stool throughout the colon which may be impacted No free intraperitoneal fluid, air, or suspicious adenopathy NG tube tip in the body of the stomach Diffuse atherosclerosis Degenerative bony changes Reading Location: [id number] Chest X-Ray 07/16/25 09:05 IMPRESSION: Tubes and lines in position. There interstitial infiltrates in the perihilar region bilaterally and in the left upper lung. Reading Location: [facility] Physical Exam Const Constitutional Narrative: intubated. sedated. cachectic. HEENT head/scalp atraumatic HEENT Narrative: ETT OGT Resp Resp Narrative: coarse breath sounds bilaterally. Cardio regular rate, regular rhythm, S1 normal heart sound and S2 normal heart sound GI normal to inspection, nondistended, normoactive bowel sounds, soft to palpation, non-tender and non-distended Extremity normal to inspection and full ROM Assessment & Plan Assessment/Plan (1) COPD exacerbation: (2) Pneumonia: QUALIFIERS: Pneumonia type: due to unspecified organism L aterality: bilateral Lung location: unspecified part of lung Qualified Code(s): J18.9 - Pneumonia, unspecified organism (3) Acute hypoxic on chronic hypercapnic respiratory failure: (4) CHF exacerbation: QUALIFIERS: Heart failure type: unspecified Qualified Code(s): I 50.9 - Heart failure, unspecified (5) Elevated troponin: (6) Hypertensive emergency: (7) Sepsis: QUALIFIERS: Sepsis type: sepsis due to unspecified organism S epsis acute organ dysfunction status: with acute organ dysfunction Severe sepsis acute organ dysfunction type: acute respiratory failure Acute respiratory failure type: with hypercapnia Severe sepsis shock status: without septic shock Qualified Code(s): A41.9 - Sepsis, unspecified organism; R65.20 - Severe sepsis without septic shock; J96.02 - Acute respiratory failure with hypercapnia (8) Leukocytosis: QUALIFIERS: Leukocytosis type: bandemia Qualified Code(s): D 72.825 - Bandemia (9) Lactic acidosis: (10) Transaminitis: (11) Hyperglycemia: PLAN: Plan Acute Hypoxic and Hypercapnic Respiratory Failure * ABG pH 7.06/ PCO2 75.1 mmHg/ PO2 73 mmHg/ HCO3 21.2 mmHg @ 86% on * ventilator * CCM for vent mgmt * 2/2 to AECOPD, AECHF, possible pneumonia * on empiric abx. * respiratory panel, legionella strep antigens negative AECOPD: * Start IV methylprednisolone and give scheduled plus prn nebulizers. Acute HFpEF * concern for flash pulmonary edema. * EF 55% on echo from 07/16/2025 * on IV furosemide. Elevated troponin * trending down. No wall motion abnormality on echo. Hypertensive emergency * elevated blood pressure of 257/127 mmHg with concerns for flash pulmonary edema. * On IV furosemide and PRN hydralazine. Hyperglycemia * of 368 mg/dL present on admission suspicious for DM-2 adding to the burden of disease Check HgbA1c to confirm suspicion of DM-2. Check FSBS q. 4 hours and cover with SSI. Chronic conditions: * CAD; s/p stents x 3 RCA + LAD x 1 (2016) on BASA plus prn SL NTG - Continue BASA daily and serialize troponin. 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 * Hyperlipidemia; on atorvastatin - Maintain statin and check Lipid Profile. * OAB; on oxybutynin - Continue present therapy. * Depression; on venlafaxine - Restart this agent after extubation. * Glaucoma; on brimonidine daily and dorzolamide eyes drops TID - Maintain current therapy. DVT/GI prophylaxis - Lovenox 40 mg sq daily plus SCD's. Pantoprazole 40 mg IV daily. DW family at bedside. Charges/Coding Procedures Hospitalists Procedures: Other Procedure - See Report (Nonbillable rounding as patient was admitted after midnight.)
[2025-07-16] MEDS: Piperacil/Tazobactam 3.375 GM in 0.9% Normal Saline (50mL MB+) 50 ML IV ×2 (13:00→21:35)
--- NOTE | 2025-07-16 13:08 | CASEMGMT ---
RN CM Assessment Face to Face with patient for initial transition planning/care coordination assessment. Pt is currently intubated and sedated and is unable to answer this RN CM questions for assessment. There is currently no family at bedside. TC to pt's NOK on file, Vita (friend). Vita states that she has been the pt's best friend for the last 11 years and that she lives very close to the pt. Vita states that the pt does have a but does not currently have a phone to call. Vita states that the pt's will not be to the hospital until tomorrow morning. Vita educated about ICU rounds at 0900. Vita states that she and the pt's (Dave) plans to attend tomorrow. Vita is also agreeable to answering this RN CM questions for initial assessment. Care providers, pharmacy, and demographics verified. Admitting dx: AE COPD, Acute on Chronic RF LACE Strata: 1 PCP: Melissa Ozuna Specialists: MARY LOU Blakely Pharmacy: [facility] Insurance: [facility] ADV Prescription Benefit: Yes LNOK: Vita Alan (Friend), Dave Acosta (), Dave Gaming (Son), Mustapha (Son), Juan (Son), Jeff (GS) Living Arrangements: Pt lives with her and 15 y/o GS in a mobile home with 5-6 steps to enter ADLs/IADLs: Vita states that the pt and the pt's require assistance. Vita states that she and the GS provide this assistance but that Vita is also trying to get the pt an aide through the insurance Transportation: Vita as well as a confucianist friend DME: Home oxygen through [employer]. Vita reports that the pt has a concentrator, portable tanks, and inhaler. Vita also states that the pt has a walker and shower chair. HHC/SNF: Vita states that the pt is active with skilled HHC services. Vita believes that the HH agency is through [place]. DPA notified. Smoking hx: Vita states that the pt smokes about a half pack of cigarettes per day and occasionally smokes marijuana. Denies EtOH use Pt?s goal: TBD Plan: TBD. Pt is currently on the vent. CM to follow for safe DC planning including but not limited to: oxygen, cessation resources, therapy, HHC, SNF, and/or potential Palliative care needs. Vita denies further questions or concerns at this time. Sidney Monk RN CM
[2025-07-16] MEDS: Dorzolamide 2% 10ml Bottle 1 DRP OPHTHALMIC ×2 (13:22→21:34)
--- NOTE | 2025-07-16 13:45 | CASEMGMT ---
Addendum entered by Nubia Hughes 07/16/25 15:17: Interim confirms that pt is active with their agency, receiving PT/OT/SN. RN CM updated. Nubia Hughes DC Planning Asst. Addendum entered by Nubia Hughes 07/16/25 14:18: Pt is not active with [facility]. However, because she last discharged from [facility], they were able to see that services were set up [facility]. Resumption sent to [facility] to confirm if pt was active. Nubia Hughes DC Planning Asst. Original Note: Discharge Planning Resumption sent to [facility] with note asking for confirmation of disciplines being rec'd. Nbuia Hughes DC Planning Asst.
[2025-07-16] MEDS: Propofol 10MG/Ml 1,000 MG/100 ML Bottle 4.8 MG CONT INF (14:49)
[2025-07-16] MEDS: 0.9% Saline Lock 10 ML Syringe IV (21:40)
[2025-07-17] VITALS (34 sets, daily range): BP systolic 143–192; BP diastolic 57–90; PULSE 61–81; RESP 20; TEMP 36.4–37.9; O2SAT 94–98; BMI 17.8
[2025-07-17] MEDS: Propofol 10MG/Ml 1,000 MG/100 ML Bottle 8 MG CONT INF (00:09)
[2025-07-17] MEDS: fentaNYL drip 100 ML 12.5 MCG CONT INF ×3 (00:10→21:42)
[2025-07-17] MEDS: 0.9% Saline Lock 10 ML Syringe IV ×4 (00:54→16:27)
--- NOTE | 2025-07-17 05:10 | RAD_ITS ---
PROCEDURE: CHEST 1 VIEW (PORTABLE) 07/17/2025 REASON FOR EXAM: AE COPD AND AE CHF TECHNIQUE: Frontal view of the chest. COMPARISON: July 16, 2025 FINDINGS: There is an ET tube in position with its tip 3.5 cm above the level of the steve. There is an enteric tube seen with its tip below the field of view of this exam. Heart size is within normal limits. There are perihilar infiltrates in the right and left, improved. There is no pneumothorax or effusion. There is no acute bony abnormality. Aortic calcifications are noted. RAD/Chest 1 View (Portable) IMPRESSION: Tubes and lines in position. There are perihilar infiltrates in the right and left, improved. Reading Location: [facility]
[2025-07-17] MEDS: Piperacil/Tazobactam 3.375 GM in 0.9% Normal Saline (50mL MB+) 50 ML IV ×3 (05:43→21:03)
[2025-07-17] MEDS: Dorzolamide 2% 10ml Bottle 1 DRP OPHTHALMIC ×3 (06:23→21:07)
--- NOTE | 2025-07-17 07:04 | PCM.PN.HOSP ---
Reason for Visit Chief Complaint: SOB. Subjective Subjective Attempting to pull ETT, so sedation changed from propofol to dexmedetomidine. Objective Data Objective Data Vital Signs: Vital Signs Temp Pulse Resp BP Pulse Ox O2 Del Method O2 Flow Rate 37.1 C 68 20 H 147/58 H 96 Mechanical Ventilator 94 07/17/25 06:00 07/17/25 06:47 07/17/25 06:47 07/17/25 06:00 07/17/25 06:47 07/17/25 06:00 07/17/25 01:00 FiO2 30 07/17/25 06:47 Oxygen Flow Rate (L/min) 94 Oxygen Delivery Method Mechanical Ventilator Weight: 47.287 kg Body Mass Index (BMI) 17.8 Intake & Output: Intake and Output for Last 24 Hours 07/15/25 07/16/25 07/17/25 23:59 23:59 23:59 Intake Total 1199.24 / 1242.49 215.77 / 215.77 Output Total 3125 / 3125 300 / 300 Balance -1925.76 / -1882.51 -84.23 / -84.23 Lab / Micro Data 07/17/25 06:30 07/17/25 06:30 Labs: Laboratory Results - last 24 hr 07/16/25 05:29: Triglycerides 99, Cholesterol 233 H, LDL Cholesterol, Calc 146, VLDL Cholesterol 20, HDL Cholesterol 67, Cholesterol/HDL Ratio 3.49 07/16/25 06:31: Hemoglobin A1c 6.1 H 07/16/25 08:25: Urine Color Straw, Urine Clarity Clear, Urine pH 7.0, Ur Specific [place] 1.005, Urine Protein 30 H, Urine Glucose (UA) Normal, Urine Ketones Negative, Urine Occult Blood 10 H, Urine Nitrite Negative, Urine Bilirubin Negative, Urine Urobilinogen Normal, Ur Leukocyte Esterase Negative, Urine RBC 0 SEEN, Urine WBC 0 SEEN, Ur Squamous Epith Cells 0 SEEN, Urine Bacteria 0 SEEN, Urine Mucus 0 SEEN 07/16/25 08:50: Lactic Acid 1.4, Troponin T Hi Sens 4Hr 93 H* 07/16/25 11:24: POC Glucose 152 H 07/16/25 13:18: POC Glucose 145 H 07/16/25 16:10: POC Glucose 124 H 07/16/25 21:45: POC Glucose 135 H 07/17/25 00:51: POC Glucose 153 H 07/17/25 06:21: POC Glucose 156 H Micro: Microbiology 07/16/25 10:30 Nasal Secretion MRSA (PCR) - Final 07/16/25 09:20 Mucosa - Nasopharyngeal Respiratory Panel (PCR) - Final 07/16/25 08:25 Urine Catheter - Madrigal Legionella Antigen - Final 07/16/25 08:25 Urine Catheter - Madrigal Streptococcus pneumoniae Antigen (M - Final 07/16/25 03:36 Sputum, Induced/Lukens Gram Stain - Final 07/16/25 03:44 Mucosa - Nose SARS-CoV-2, Influenza & RSV (PCR) - Final ABG Data ABG results: ABG 07/16/25 09:42 Specimen Type ART Sample Site L Radial pH 7.49 H Bicarbonate Actual 29.1 H Total CO2 30 Base Excess 6 H O2 Saturation 98 O2 % 50.0 ABG pCO2 38.6 ABG pO2 96 Steve Test N/A Respiration Rate 20 O2 Delivery Device Adult Vent Vent Mode AC Tidal Volume 400.0 POC PEEP 5 Radiography Diagnostic Testing: Radiology Impression Echocardiogram 07/16/25 06:31 Interpretation Summary Mild concentric left ventricular hypertrophy. Inferior hypokinesis. Estimated LVEF 55%. Stage I diastolic dysfunction. Moderate posterior mitral valve annular calcification. Calcified chord. Mild mitral valve regurgitation. Mild tricuspid valve insufficiency. Mildly calcified aortic valve leaflets. Aortic valve sclerosis without stenosis. Mild (1+) pulmonic valve insufficiency. Ordering Physician: Clarence Zuniga Performed By: Jake Miguel RCS Abdomen/Pelvis CT 07/16/25 06:40 IMPRESSION: No suspicious solid organ abnormality, there is atrophy of the right kidney compared to the left but no obstructive uropathy or suspicious solid renal lesion. Retained stool throughout the colon which may be impacted No free intraperitoneal fluid, air, or suspicious adenopathy NG tube tip in the body of the stomach Diffuse atherosclerosis Degenerative bony changes Reading Location: [facility] Chest X-Ray 07/16/25 09:05 IMPRESSION: Tubes and lines in position. There interstitial infiltrates in the perihilar region bilaterally and in the left upper lung. Reading [facility] Chest X-Ray 07/17/25 05:10 IMPRESSION: Tubes and lines in position. There are perihilar infiltrates in the right and left, improved. Reading Location: [facility] Physical Exam Const Constitutional Narrative: agitated but sedated. afebrile. HEENT head/scalp atraumatic and moist oral mucous membranes Resp normal respiratory effort, no retractions, no use of accessory muscles and clear to auscultation bilaterally Cardio regular rate, regular rhythm, S1 normal heart sound and S2 normal heart sound GI normal to inspection, nondistended, normoactive bowel sounds, soft to palpation, non-tender and non-distended Extremity normal to inspection Assessment & Plan Assessment/Plan (1) COPD exacerbation: (2) Pneumonia: QUALIFIERS: Laterality: bilateral Lung location: unspecified part of lung Pneumonia type: due to unspecified organism Qualified Code(s): J18.9 - Pneumonia, unspecified organism (3) Acute hypoxic on chronic hypercapnic respiratory failure: (4) CHF exacerbation: QUALIFIERS: Heart failure type: unspecified Qualified Code(s): I50.9 - Heart failure, unspecified (5) Elevated troponin: (6) Hypertensive emergency: (7) Transaminitis: PLAN: Plan Acute Hypoxic and Hypercapnic Respiratory Failure ABG pH 7.06/ PCO2 75.1 mmHg/ PO2 73 mmHg/ HCO3 21.2 mmHg @ 86% on ventilator CCM for vent mgmt 2/2 to AECOPD, AECHF, possible pneumonia on empiric abx. respiratory panel, legionella strep antigens negative AECOPD: Start IV methylprednisolone and give scheduled plus prn nebulizers. Acute HFpEF concern for flash pulmonary edema. EF 55% on echo from 07/16/2025 on IV furosemide. Elevated troponin trending down. No wall motion abnormality on echo. Hypertensive emergency improved elevated blood pressure of 257/127 mmHg with concerns for flash pulmonary edema. On IV furosemide and PRN hydralazine. Hyperglycemia improved a1c 6.1 of 368 mg/dL present on admission suspicious for DM-2 adding to the burden of disease Check HgbA1c to confirm suspicion of DM-2. Check FSBS q. 4 hours and cover with SSI. Chronic conditions: CAD; s/p stents x 3 RCA + LAD x 1 (2017) on BASA plus prn SL NTG - Continue BASA daily and serialize troponin. 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 Hyperlipidemia; on atorvastatin - Maintain statin and check Lipid Profile. OAB; on oxybutynin - Continue present therapy. Depression; on venlafaxine - Restart this agent after extubation. Glaucoma; on brimonidine daily and dorzolamide eyes drops TID - Maintain current therapy. DVT/GI prophylaxis - Lovenox 40 mg sq daily plus SCD's. Pantoprazole 40 mg IV daily. DW family at bedside. Charges/Coding Visit Charges Inpatient E&M: 70553 Subs Hosp L2
[2025-07-17] MEDS: Aspirin E.C. 81 MG Tablet PO (07:35)
[2025-07-17] MEDS: BRIMONIDINE 0.2% 5ML BOTTLE 1 DRP OPHTHALMIC (07:36)
--- NOTE | 2025-07-17 07:37 | PN.CC_ITS ---
Assessment & Plan Assessment/Plan (1) Acute respiratory failure with hypoxia and hypercapnia: PLAN: Plan RECOMMENDATIONS: 1. Continue assist-control mode of mechanical ventilation. Wean FiO2 and PEEP as tolerated. 2. Transition from propofol to Precedex to help facilitate weaning from invasive mechanical ventilatory support. 3. Continue empiric antimicrobials. 4. Continue scheduled bronchodilators and steroids. 5. Continue diuresis as tolerated by hemodynamics and renal function. 6. Okay to initiate tube feeding today for nutritional support. 7. Continue appropriate ICU prophylaxis. IMPRESSIONS: 1. Acute respiratory failure with hypoxemia and hypercapnia Most likely multifactorial in etiology. The patient has a known history of COPD and a longstanding tobacco abuse history, but presented to the emergency department profoundly hypertensive with what I suspect is a component of flash pulmonary edema. The patient was ultimately intubated in the emergency department. She will be continued on assist-control mode of mechanical ventilation, with a goal to wean FiO2 and PEEP to maintain saturations at or above 90%. Given that I cannot definitively rule out infection, we will plan to continue empiric antibiotics, pending culture results. She will be continued on scheduled bronchodilators and IV steroids as well. Diuretics will be continued, as tolerated by hemodynamics and renal function. The patient will be transition from propofol to Precedex to help facilitate weaning from invasive mechanical ventilatory support. Plan to repeat spontaneous awakening and breathing trial tomorrow morning. 2. History of coronary artery disease status post PCI/history of hypertrophic cardiomyopathy/valvular heart disease Continue diuretics as tolerated by hemodynamics and renal function. 3. Chronic tobacco dependency/depression/glaucoma/hyperlipidemia Complicates care, management, recovery and prognosis. Continue supportive measures as noted above. PT/OT to work with the patient. Okay to initiate tube feeding today from my perspective. TIME: 34 minutes of critical care time, independent of procedures, was spent addressing the patient's acute respiratory failure with hypoxemia and hypercapnia, review of all data and collaboration with the care team. Subjective Subjective The patient was seen and examined at the bedside this morning. Events from the last 24 hours have been reviewed. The patient is currently afebrile, hemodynamically stable and maintaining appropriate oxygen saturations on assist- control mode of mechanical ventilation with an FiO2 requirement of 30% and PEEP of 5. The patient failed her spontaneous awakening trial this morning after she became agitated with weaning of sedation. The patient was documented to be overall net -1.6 L for the hospitalization. Objective Data Objective Data The patient's most recent lab work, culture data and imaging studies have all been personally reviewed. Surface echocardiogram demonstrated mild concentric LVH with an ejection fraction of 55% and stage I diastolic dysfunction. Sputum, blood and urine cultures are pending. Vital Signs: Vital Signs Temp Pulse Resp BP Pulse Ox O2 Del Method O2 Flow Rate 98.7 F 67 20 H 157/63 H 95 Mechanical Ventilator 94 07/17/25 07:00 07/17/25 07:00 07/17/25 07:00 07/17/25 07:00 07/17/25 07:00 07/17/25 07:00 07/17/25 01:00 FiO2 45 07/17/25 07:00 Oxygen Flow Rate (L/min) 94 Oxygen Delivery Method Mechanical Ventilator Weight: 104 lb 4 oz Body Mass Index (BMI) 17.8 Intake & Output: Intake and Output for Last 24 Hours 07/15/25 07/16/25 07/17/25 23:59 23:59 23:59 Intake Total 1199.24 / 1242.49 236.27 / 236.27 Output Total 3125 / 3125 300 / 300 Balance -1925.76 / -1882.51 -63.73 / -63.73 Lab / Micro Data Attestation: I reviewed the patient's lab results. 07/16/25 03:20 07/17/25 06:30 Labs: Laboratory Results - last 24 hr 07/16/25 05:29: Triglycerides 99, Cholesterol 233 H, LDL Cholesterol, Calc 146, VLDL Cholesterol 20, HDL Cholesterol 67, Cholesterol/HDL Ratio 3.49 07/16/25 06:31: Hemoglobin A1c 6.1 H 07/16/25 08:25: Urine Color Straw, Urine Clarity Clear, Urine pH 7.0, Ur Specific [place] 1.005, Urine Protein 30 H, Urine Glucose (UA) Normal, Urine Ketones Negative, Urine Occult Blood 10 H, Urine Nitrite Negative, Urine Bilirubin Negative, Urine Urobilinogen Normal, Ur Leukocyte Esterase Negative, Urine RBC 0 SEEN, Urine WBC 0 SEEN, Ur Squamous Epith Cells 0 SEEN, Urine Bacteria 0 SEEN, Urine Mucus 0 SEEN 07/16/25 08:50: Lactic Acid 1.4, Troponin T Hi Sens 4Hr 93 H* 07/16/25 11:24: POC Glucose 152 H 07/16/25 13:18: POC Glucose 145 H 07/16/25 16:10: POC Glucose 124 H 07/16/25 21:45: POC Glucose 135 H 07/17/25 00:51: POC Glucose 153 H 07/17/25 06:21: POC Glucose 156 H Micro: Microbiology 07/16/25 10:30 Nasal Secretion MRSA (PCR) - Final 07/16/25 09:20 Mucosa - Nasopharyngeal Respiratory Panel (PCR) - Final 07/16/25 08:25 Urine Catheter - Madrigal Legionella Antigen - Final 07/16/25 08:25 Urine Catheter - Madrigal Streptococcus pneumoniae Antigen (M - Final 07/16/25 03:36 Sputum, Induced/Lukens Gram Stain - Final 07/16/25 03:44 Mucosa - Nose SARS-CoV-2, Influenza & RSV (PCR) - Final ABG Data ABG results: ABG 07/16/25 09:42 Specimen Type ART Sample Site L Radial pH 7.49 H Bicarbonate Actual 29.1 H Total CO2 30 Base Excess 6 H O2 Saturation 98 O2 % 50.0 ABG pCO2 38.6 ABG pO2 96 Steve Test N/A Respiration Rate 20 O2 Delivery Device Adult Vent Vent Mode AC Tidal Volume 400.0 POC PEEP 5 Radiography Diagnostic Testing: Radiology Impression Echocardiogram 07/16/25 06:31 Interpretation Summary Mild concentric left ventricular hypertrophy. Inferior hypokinesis. Estimated LVEF 55%. Stage I diastolic dysfunction. Moderate posterior mitral valve annular calcification. Calcified chord. Mild mitral valve regurgitation. Mild tricuspid valve insufficiency. Mildly calcified aortic valve leaflets. Aortic valve sclerosis without stenosis. Mild (1+) pulmonic valve insufficiency. Ordering Physician: Clarence Zuniga Performed By: Jake Miguel RCS Chest X-Ray 07/16/25 09:05 IMPRESSION: Tubes and lines in position. There interstitial infiltrates in the perihilar region bilaterally and in the left upper lung. [facility] Chest X-Ray 07/17/25 05:10 IMPRESSION: Tubes and lines in position. There are perihilar infiltrates in the right and left, improved. Reading Location: [facility] Physical Exam Const Constitutional Narrative: The patient is intubated, sedated and mechanically ventilated. She is chronically ill in appearance. General Appearance: frail HEENT normocephalic and head/scalp atraumatic Mouth: endotracheal tube in place and OG tube in place Eyes EOMs intact bilaterally, conjunctivae normal and no scleral icterus Neck supple General: trachea midline Chest Chest Narrative: Increased AP diameter. Resp Auscultation: diminished lung sounds; Negative for rales, rhonchi or wheezes Cardio regular rate and regular rhythm GI normal to inspection, nondistended, normoactive bowel sounds Extremity no clubbing, cyanosis or edema Skin no rashes or lesions noted Neuro Sensorium / Orientation: sedated on vent Charges/Coding Procedures Hospitalists Procedures: [id number] Critical Care 1st Hr
[2025-07-17] MEDS: Pantoprazole Sodium 40 MG in 0.9% Normal Saline (100mL MB+) 100 ML 330 MG IV (07:40)
[2025-07-17] MEDS: Vancomycin HCl 750 MG in 0.9% Normal Saline (250mL Bag) 250 ML 250 MG IV (07:40)
[2025-07-17] MEDS: Chlorhexidine 15 ML PO ×2 (07:58→21:09)
[2025-07-17] MEDS: CHLORHEXIDINE GLUC 2% CLOTH 1 EACH TOWELETTE TOPICAL (08:02)
[2025-07-17 08:36] LABS: Pro- Brain NATRIURETIC PEPTIDE 6511 pg/mL (<=900)
[2025-07-17 08:39] LABS: Anion Gap 15 (5-15); BUN 29 mg/dL (4-19); BUN/Creat Ratio 22.6 RATIO (10-20); Calcium,Total 8.1 mg/dL (7.6-11.0); Carbon Dioxide 22.9 mmol/L (21.0-32.0); Chloride 102 mmol/L (98-108); Estimated Creatinine Clearance 29.63 ml/min (50-250); Glucose 149 mg/dL (70-99); Potassium 3.0 mmol/L (3.3-5.1)
[2025-07-17] MEDS: dexMEDEtomidine 400 MCG in 0.9% Normal Saline (100mL Bag) 96 ML 5.9 MCG CONT INF (09:07)
[2025-07-17] MEDS: Potassium Chloride 10mEq/100mL 10 MEQ/100 ML IV.SOLN. 100 MEQ IV BOLUS ×4 (10:33→14:18)
[2025-07-17] MEDS: Vital AF 1.2 Cal Liquid 1,000 ML 15 ML GT (10:33)
[2025-07-17] MEDS: Potassium Chloride Oral Soln 20 MEQ/15 ML UDC 40 MEQ PO (10:44)
[2025-07-17] MEDS: 0.9% Normal Saline (250mL Bag) 250 ML 15 ML IV (10:58)
--- NOTE | 2025-07-17 11:11 | CASEMGMT ---
Discharge Planning Updates sent to [facility] with request for wknd phone/fax. Nubia Hughes DC Planning Asst.
[2025-07-17 11:19] LABS: Hematocrit 29.1 % (37-47); Hemoglobin 9.8 g/dL (12.0-15.0); Immature Granulocytes Count 0.030 X10^3/uL (0.0-0.0); Mean Corp Hgb Conc 33.7 g/dL (32-36); Mean Corpuscular Volume 87.1 fL (81-99); Mean Platelet Vol. 9.7 fl (6.2-12.0); NRBC Flagged by Analyzer 0 % (0-5); Platelet Count 352 K/mm3 (150-450); RBC Distribution Width CV 15.1 % (11.6-14.6); RBC Distribution Width SD 47.9 fl (35.1-43.9); Red Blood Count 3.34 M/mm3 (4.2-5.4); White Blood Count 8.4 K/mm3 (4.4-11.0)
[2025-07-17] MEDS: dexMEDEtomidine 400 MCG in 0.9% Normal Saline (100mL Bag) 96 ML 17.7 MCG CONT INF (14:21)
[2025-07-17] MEDS: fentaNYL drip 100 ML 17.5 MCG CONT INF (14:21)
[2025-07-17] MEDS: dexMEDEtomidine 400 MCG in 0.9% Normal Saline (100mL Bag) 96 ML 11.8 MCG CONT INF (21:17)
[2025-07-18] VITALS (34 sets, daily range): BP systolic 137–187; BP diastolic 55–111; PULSE 59–120; RESP 20–35; TEMP 36.8–37.8; O2SAT 87–97; BMI 18.8
[2025-07-18] MEDS: Propofol 10MG/Ml 1,000 MG/100 ML Bottle 2.8 MG CONT INF (01:15)
[2025-07-18] MEDS: fentaNYL drip 100 ML 15 MCG CONT INF ×3 (05:47→20:00)
[2025-07-18] MEDS: dexMEDEtomidine 400 MCG in 0.9% Normal Saline (100mL Bag) 96 ML 11.8 MCG CONT INF (05:51)
[2025-07-18] MEDS: Piperacil/Tazobactam 3.375 GM in 0.9% Normal Saline (50mL MB+) 50 ML IV ×3 (05:59→20:28)
[2025-07-18] MEDS: Dorzolamide 2% 10ml Bottle 1 DRP OPHTHALMIC ×3 (06:00→20:25)
[2025-07-18] MEDS: 0.9% Saline Lock 10 ML Syringe IV (06:09)
[2025-07-18 06:42] LABS: Hematocrit 32.7 % (37-47); Hemoglobin 11.2 g/dL (12.0-15.0); Immature Granulocytes Count 0.080 X10^3/uL (0.0-0.0); Mean Corp Hgb Conc 34.3 g/dL (32-36); Mean Corpuscular Volume 87.0 fL (81-99); Mean Platelet Vol. 9.4 fl (6.2-12.0); NRBC Flagged by Analyzer 0 % (0-5); POSITIVE DIFFERENTIAL YES; Platelet Count 365 K/mm3 (150-450); RBC Distribution Width CV 15.3 % (11.6-14.6); RBC Distribution Width SD 48.1 fl (35.1-43.9); Red Blood Count 3.76 M/mm3 (4.2-5.4); White Blood Count 9.9 K/mm3 (4.4-11.0)
--- NOTE | 2025-07-18 07:39 | PN.CC_ITS ---
Assessment & Plan Assessment/Plan (1) Acute respiratory failure with hypoxia and hypercapnia: PLAN: Plan RECOMMENDATIONS: 1. Continue assist-control mode of mechanical ventilation. Wean FiO2 and PEEP as tolerated. 2. Continue Precedex and fentanyl for sedation. Start scheduled Seroquel today. 3. Continue empiric antimicrobials. 4. Continue scheduled bronchodilators and steroids. 5. Continue diuresis as tolerated by hemodynamics and renal function. 6. Continue tube feeding as tolerated. 7. Continue appropriate ICU prophylaxis. 8. Plan for repeat spontaneous awakening and breathing trial tomorrow morning. IMPRESSIONS: 1. Acute respiratory failure with hypoxemia and hypercapnia Most likely multifactorial in etiology. The patient has a known history of COPD and a longstanding tobacco abuse history, but presented to the emergency department profoundly hypertensive with what I suspect is a component of flash pulmonary edema. The patient was ultimately intubated in the emergency department. She will be continued on assist-control mode of mechanical ventilation, with a goal to wean FiO2 and PEEP to maintain saturations at or above 90%. Given that I cannot definitively rule out infection, we will plan to continue empiric antibiotics, pending culture results. She will be continued on scheduled bronchodilators and IV steroids as well. Diuretics will be continued, as tolerated by hemodynamics and renal function. The patient will be continued on Precedex and fentanyl for sedation. Will plan to start scheduled Seroquel today in hopes that this will also help her in completing a spontaneous breathing trial. 2. History of coronary artery disease status post PCI/history of hypertrophic cardiomyopathy/valvular heart disease Continue diuretics as tolerated by hemodynamics and renal function. 3. Chronic tobacco dependency/depression/glaucoma/hyperlipidemia Complicates care, management, recovery and prognosis. Continue supportive measures as noted above. PT/OT to work with the patient. Continue tube feeding as tolerated. TIME: 33 minutes of critical care time, independent of procedures, was spent addressing the patient's acute respiratory failure with hypoxemia and hypercapnia, review of all data and collaboration with the care team. Subjective Subjective The patient was seen and examined at the bedside this morning. Events from the last 24 hours have been reviewed. The patient currently has a low-grade fever but remains otherwise hemodynamically stable on assist-control mode mechanical ventilation with an FiO2 requirement of 30% and PEEP of 5. The patient failed her spontaneous awakening trial this morning after she developed significant agitation which led to worsening tachypnea and hypoxemia. She is currently documented to be overall net -1.2 L for the hospitalization. She has been tolerant of tube feeding. White blood cell count is normal. Hemoglobin and platelet count are stable. Creatinine is normal. Objective Data Objective Data The patient's most recent lab work, culture data and imaging studies have all been personally reviewed. Surface echocardiogram demonstrated mild concentric LVH with an ejection fraction of 55% and stage I diastolic dysfunction. Sputum, blood and urine cultures are pending. Vital Signs: Vital Signs Temp Pulse Resp BP Pulse Ox O2 Del Method O2 Flow Rate 99.8 F H 65 20 H 158/64 H 96 Mechanical Ventilator 94 07/18/25 07:00 07/18/25 07:00 07/18/25 07:00 07/18/25 07:00 07/18/25 07:00 07/18/25 07:00 07/17/25 01:00 FiO2 30 07/18/25 07:00 Oxygen Flow Rate (L/min) 94 Oxygen Delivery Method Mechanical Ventilator Weight: 110 lb 10.753 oz Body Mass Index (BMI) 18.8 Intake & Output: Intake and Output for Last 24 Hours 07/16/25 07/17/25 07/18/25 23:59 23:59 23:59 Intake Total 1199.24 / 1242.49 1917.62 / 1995.00 596.75 / 596.75 Output Total 3125 / 3125 1535 / 1710 375 / 375 Balance -1925.76 / -1882.51 382.62 / 285.00 221.75 / 221.75 Lab / Micro Data Attestation: I reviewed the patient's lab results. 07/18/25 06:30 07/18/25 06:30 Labs: Laboratory Results - last 24 hr 07/17/25 06:30: WBC 8.4, RBC 3.34 L, Hgb 9.8 L, Hct 29.1 L, MCV 87.1 D, MCH 29.3, MCHC 33.7 D, RDW Std Deviation 47.9 H, RDW Coeff of Shivam 15.1 H, Plt Count 352, MPV 9.7, Immature Gran % (Auto) 0.400, Neut % (Auto) 84.1 H, Lymph % (Auto) 9.1 L, [place] % (Auto) 6.3, Eos % (Auto) 0.0, Baso % (Auto) 0.1, Absolute Neuts (auto) 7.0, Absolute Lymphs (auto) 0.76 L, Nucleated RBC % 0, Sodium 140, P otassium 3.0 L, Chloride 102, Carbon Dioxide 22.9, Anion Gap 15, BUN 29 H, C reatinine 1.30 H, Estim Creat Clear Calc 29.63 L, Est GFR (MDRD) Non-Af 44 L, B UN/Creatinine Ratio 22.6 H, Glucose 149 H, Calcium 8.1, NT pro BNP II 6511 H 07/17/25 11:03: POC Glucose 165 H 07/17/25 18:05: POC Glucose 157 H 07/17/25 23:28: POC Glucose 185 H 07/18/25 05:56: POC Glucose 174 H 07/18/25 06:30: WBC 9.9, RBC 3.76 L, Hgb 11.2 L, Hct 32.7 L, MCV 87.0, MCH 29.8, MCHC 34.3, RDW Std Deviation 48.1 H, RDW Coeff of Shivam 15.3 H, Plt Count 365, MPV 9.4, Immature Gran % (Auto) 0.800, Neut % (Auto) 88.5 H, Lymph % (Auto) 5.9 L, [place] % (Auto) 4.7, Eos % (Auto) 0.0, Baso % (Auto) 0.1, Absolute Neuts (auto) 8.8 H, Absolute Lymphs (auto) 0.59 L, Nucleated RBC % 0 Micro: Microbiology 07/16/25 10:30 Nasal Secretion MRSA (PCR) - Final 07/16/25 09:20 Mucosa - Nasopharyngeal Respiratory Panel (PCR) - Final 07/16/25 08:25 Urine Catheter - Madrigal Legionella Antigen - Final 07/16/25 08:25 Urine Catheter - Madrigal Streptococcus pneumoniae Antigen (M - Final 07/16/25 03:36 Sputum, Induced/Lukens Gram Stain - Final 07/16/25 03:44 Mucosa - Nose SARS-CoV-2, Influenza & RSV (PCR) - Final ABG Data ABG results: ABG 07/16/25 09:42 Specimen Type ART Sample Site L Radial pH 7.49 H Bicarbonate Actual 29.1 H Total CO2 30 Base Excess 6 H O2 Saturation 98 O2 % 50.0 ABG pCO2 38.6 ABG pO2 96 Steve Test N/A Respiration Rate 20 O2 Delivery Device Adult Vent Vent Mode AC Tidal Volume 400.0 POC PEEP 5 Radiography Diagnostic Testing: Radiology Impression Echocardiogram 07/16/25 06:31 Interpretation Summary Mild concentric left ventricular hypertrophy. Inferior hypokinesis. Estimated LVEF 55%. Stage I diastolic dysfunction. Moderate posterior mitral valve annular calcification. Calcified chord. Mild mitral valve regurgitation. Mild tricuspid valve insufficiency. Mildly calcified aortic valve leaflets. Aortic valve sclerosis without stenosis. Mild (1+) pulmonic valve insufficiency. Ordering Physician: Clarence Zuniga Performed By: Jake Miguel [facility] Chest X-Ray 07/16/25 09:05 IMPRESSION: Tubes and lines in position. There interstitial infiltrates in the perihilar region bilaterally and in the left upper lung. Reading Location: [facility] Chest X-Ray 07/17/25 05:10 IMPRESSION: Tubes and lines in position. There are perihilar infiltrates in the right and left, improved. Reading Location: [facility] Physical Exam Const Constitutional Narrative: The patient is intubated, sedated and mechanically ventilated. She is chronically ill in appearance. General Appearance: frail HEENT normocephalic and head/scalp atraumatic Mouth: endotracheal tube in place and OG tube in place Eyes EOMs intact bilaterally, conjunctivae normal and no scleral icterus Neck supple General: trachea midline Chest Chest Narrative: Increased AP diameter. Resp Auscultation: diminished lung sounds; Negative for rales, rhonchi or wheezes Cardio regular rate and regular rhythm GI normal to inspection, nondistended, normoactive bowel sounds Extremity no clubbing, cyanosis or edema Skin no rashes or lesions noted Neuro Sensorium / Orientation: sedated on vent Charges/Coding Procedures Hospitalists Procedures: [id number] Critical Care 1st Hr
[2025-07-18 07:57] LABS: Anion Gap 13 (5-15); BUN 34 mg/dL (4-19); BUN/Creat Ratio 32.4 RATIO (10-20); Calcium,Total 8.4 mg/dL (7.6-11.0); Carbon Dioxide 23.0 mmol/L (21.0-32.0); Chloride 103 mmol/L (98-108); Estimated Creatinine Clearance 39.32 ml/min (50-250); Glucose 181 mg/dL (70-99); Magnesium 2.4 mg/dL (1.5-2.2); Potassium 3.6 mmol/L (3.3-5.1)
--- NOTE | 2025-07-18 08:07 | PCM.PN.HOSP ---
Reason for Visit Chief Complaint: SOB. Subjective Subjective Did not tolerate SBT. Objective Data Objective Data Vital Signs: Vital Signs Temp Pulse Resp BP Pulse Ox O2 Del Method O2 Flow Rate 37.7 C H 65 20 H 158/64 H 96 Mechanical Ventilator 94 07/18/25 07:00 07/18/25 07:00 07/18/25 07:00 07/18/25 07:00 07/18/25 07:00 07/18/25 07:00 07/17/25 01:00 FiO2 30 07/18/25 07:00 Oxygen Flow Rate (L/min) 94 Oxygen Delivery Method Mechanical Ventilator Weight: 50.2 kg Body Mass Index (BMI) 18.8 Intake & Output: Intake and Output for Last 24 Hours 07/16/25 07/17/25 07/18/25 23:59 23:59 23:59 Intake Total 1199.24 / 1242.49 1917.62 / 1995.00 596.75 / 596.75 Output Total 3125 / 3125 1535 / 1710 375 / 375 Balance -1925.76 / -1882.51 382.62 / 285.00 221.75 / 221.75 Lab / Micro Data 07/18/25 06:30 07/18/25 06:30 Labs: Laboratory Results - last 24 hr 07/17/25 06:30: WBC 8.4, RBC 3.34 L, Hgb 9.8 L, Hct 29.1 L, MCV 87.1 D, MCH 29.3, MCHC 33.7 D, RDW Std Deviation 47.9 H, RDW Coeff of Shivam 15.1 H, Plt Count 352, MPV 9.7, Immature Gran % (Auto) 0.400, Neut % (Auto) 84.1 H, Lymph % (Auto) 9.1 L, [place] % (Auto) 6.3, Eos % (Auto) 0.0, Baso % (Auto) 0.1, Absolute Neuts (auto) 7.0, Absolute Lymphs (auto) 0.76 L, Nucleated RBC % 0, Sodium 140, Potassium 3.0 L, Chloride 102, Carbon Dioxide 22.9, Anion Gap 15, BUN 29 H, Creatinine 1.30 H, Estim Creat Clear Calc 29.63 L, Est GFR (MDRD) Non-Af 44 L, BUN/Creatinine Ratio 22.6 H, Glucose 149 H, Calcium 8.1, NT pro BNP II 6511 H 07/17/25 11:03: POC Glucose 165 H 07/17/25 18:05: POC Glucose 157 H 07/17/25 23:28: POC Glucose 185 H 07/18/25 05:56: POC Glucose 174 H 07/18/25 06:30: WBC 9.9, RBC 3.76 L, Hgb 11.2 L, Hct 32.7 L, MCV 87.0, MCH 29.8, MCHC 34.3, RDW Std Deviation 48.1 H, RDW Coeff of Shivam 15.3 H, Plt Count 365, MPV 9.4, Immature Gran % (Auto) 0.800, Neut % (Auto) 88.5 H, Lymph % (Auto) 5.9 L, [place] % (Auto) 4.7, Eos % (Auto) 0.0, Baso % (Auto) 0.1, Absolute Neuts (auto) 8.8 H, Absolute Lymphs (auto) 0.59 L, Nucleated RBC % 0, Sodium 139, Potassium 3.6, Chloride 103, Carbon Dioxide 23.0, Anion Gap 13, BUN 34 H, Creatinine 1.04, Estim Creat Clear Calc 39.32 L, Est GFR (MDRD) Non-Af 57 L, BUN/Creatinine Ratio 32.4 H, Glucose 181 H, Calcium 8.4, Phosphorus 3.6, Magnesium 2.4 H Micro: Microbiology 07/16/25 10:30 Nasal Secretion MRSA (PCR) - Final 07/16/25 09:20 Mucosa - Nasopharyngeal Respiratory Panel (PCR) - Final 07/16/25 08:25 Urine Catheter - Madrigal Legionella Antigen - Final 07/16/25 08:25 Urine Catheter - Madrigal Streptococcus pneumoniae Antigen (M - Final 07/16/25 03:36 Sputum, Induced/Lukens Gram Stain - Final 07/16/25 03:44 Mucosa - Nose SARS-CoV-2, Influenza & RSV (PCR) - Final Physical Exam Const Constitutional Narrative: intubated. sedated. afebrile. HEENT head/scalp atraumatic and moist oral mucous membranes Resp normal respiratory effort and no retractions Resp Narrative: coarse breath sounds bilaterally. Cardio regular rate, regular rhythm, S1 normal heart sound and S2 normal heart sound GI normal to inspection, nondistended, normoactive bowel sounds, soft to palpation, non-tender, non-distended and hepatosplenomegaly Assessment & Plan Assessment/Plan (1) COPD exacerbation: (2) Pneumonia: QUALIFIERS: Laterality: bilateral Lung location: unspecified part of lung Pneumonia type: due to unspecified organism Qualified Code(s): J18.9 - Pneumonia, unspecified organism (3) Acute hypoxic on chronic hypercapnic respiratory failure: (4) CHF exacerbation: QUALIFIERS: Heart failure type: unspecified Qualified Code(s): I50.9 - Heart failure, unspecified (5) Elevated troponin: (6) Hypertensive emergency: (7) Transaminitis: PLAN: Plan Acute Hypoxic and Hypercapnic Respiratory Failure ABG pH 7.06/ PCO2 75.1 mmHg/ PO2 73 mmHg/ HCO3 21.2 mmHg @ 86% on ventilator CCM for vent mgmt 2/2 to AECOPD, AECHF, possible pneumonia on empiric abx. respiratory panel, legionella strep antigens negative AECOPD: Started on IV methylprednisolone and give scheduled plus prn nebulizers. Acute HFpEF concern for flash pulmonary edema. EF 55% on echo from 07/16/2025 on IV furosemide. Elevated troponin trending down. No wall motion abnormality on echo. Hypertensive emergency improved elevated blood pressure of 257/127 mmHg with concerns for flash pulmonary edema. On IV furosemide and PRN hydralazine. Hyperglycemia improved a1c 6.1 of 368 mg/dL present on admission suspicious for DM-2 adding to the burden of disease Check HgbA1c to confirm suspicion of DM-2. Check FSBS q. 4 hours and cover with SSI. Chronic conditions: CAD; s/p stents x 3 RCA + LAD x 1 (2017) on BASA plus prn SL NTG - Continue BASA daily and serialize troponin. 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 Hyperlipidemia; on atorvastatin - Maintain statin and check Lipid Profile. OAB; on oxybutynin - Continue present therapy. Depression; on venlafaxine - Restart this agent after extubation. Glaucoma; on brimonidine daily and dorzolamide eyes drops TID - Maintain current therapy. DVT/GI prophylaxis - Lovenox 40 mg sq daily plus SCD's. Pantoprazole 40 mg IV daily. Charges/Coding Visit Charges Inpatient E&M: 49546 Subs Hosp L2
[2025-07-18] MEDS: Chlorhexidine 15 ML PO ×2 (10:28→20:24)
[2025-07-18] MEDS: BRIMONIDINE 0.2% 5ML BOTTLE 1 DRP OPHTHALMIC (10:28)
[2025-07-18] MEDS: CHLORHEXIDINE GLUC 2% CLOTH 1 EACH TOWELETTE TOPICAL (10:29)
[2025-07-18] MEDS: Vital AF 1.2 Cal Liquid 1,000 ML 45 ML GT (10:49)
[2025-07-18] MEDS: Vancomycin Trough/Random Due 1 LAB MC (10:55)
[2025-07-18] MEDS: Pantoprazole Sodium 40 MG in 0.9% Normal Saline (100mL MB+) 100 ML 330 MG IV (10:55)
[2025-07-18 11:19] LABS: Vancomycin, Trough Level 7.7 ug/mL (5.0-15.0)
--- NOTE | 2025-07-18 11:28 | PHA.PHARE_ITS ---
Consult Antibiotic Management Pharmacy has been consulted to manage selected antibiotic: Vancomycin Type of Intervention Type of Consult: Follow-up Labs Labs: Sodium 139 mmol/L (133-145) 07/18/25 06:30 Potassium 3.6 mmol/L (3.3-5.1) 07/18/25 06:30 Chloride 103 mmol/L (98-108) 07/18/25 06:30 Carbon Dioxide 23.0 mmol/L (21.0-32.0) 07/18/25 06:30 Anion Gap 13 (5-15) 07/18/25 06:30 BUN 34 mg/dL (4-19) H 07/18/25 06:30 Creatinine 1.04 mg/dL (0.70-1.20) 07/18/25 06:30 Est GFR (MDRD) Non-Af 57 (>60) L 07/18/25 06:30 BUN/Creatinine Ratio 32.4 RATIO (10-20) H 07/18/25 06:30 Glucose 181 mg/dL (70-99) H 07/18/25 06:30 Vancomycin Trough 7.7 ug/mL (5.0-15.0) 07/18/25 10:27 Microbiology Microbiology: Microbiology 07/16/25 03:44 Urine, Catheterized Urine Culture - Final Culture exhibits no growth. 07/16/25 03:36 Sputum, Induced/Lukens Gram Stain - Final 07/16/25 03:36 Sputum, Induced/Lukens Respiratory Culture - Final Mixed normal respiratory renu. No Streptococcus pneumoniae, beta-hemolytic Streptococcus or Staphylococcus aureus isolated. 07/16/25 10:30 Nasal Secretion MRSA (PCR) - Final 07/16/25 09:20 Mucosa - Nasopharyngeal Respiratory Panel (PCR) - Final 07/16/25 08:25 Urine Catheter - Madrigal Legionella Antigen - Final 07/16/25 08:25 Urine Catheter - Madrigal Streptococcus pneumoniae Antigen (M - Final 07/16/25 03:44 Mucosa - Nose SARS-CoV-2, Influenza & RSV (PCR) - Final Pharmacy Plan for Drug Dosing Pharmacy Plan for Drug Dosing: VANCOMYCIN LEVEL RECEIVED Current Vancomycin Dose: 750MG Q24 Number of Doses Received: 2 Vancomycin Level: 7.7MG/DL Hours Since Last Dose: 27 Renal Function: SCr 1.04 mg/dL, CrCl 39 mL/min Renal Function Trend: improved Vancomycin Plan/Comments: 27 hour level is subtherapeutic at 7.7mg/dL (goal 15- 20). Even though the trough is >24 hours, it is unlikely it would've been therapeutic if taken appropriately. Will increase dose to 1250mg Q24 and get a repeat trough prior to 3rd dose of new regimen. Pending Level: 07/20/25 @ 1130 Pharmacy Service will continue to monitor and adjust dosing as required.
[2025-07-18] MEDS: Propofol 10MG/Ml 1,000 MG/100 ML Bottle 9.9 MG CONT INF (11:47)
[2025-07-18] MEDS: Vancomycin HCl 1,250 MG in 0.9% Normal Saline (250mL Bag) 250 ML 167 MG IV (11:55)
[2025-07-18] MEDS: dexMEDEtomidine 400 MCG in 0.9% Normal Saline (100mL Bag) 96 ML 10.6 MCG CONT INF (14:46)
[2025-07-18] MEDS: Propofol 10MG/Ml 1,000 MG/100 ML Bottle 7.1 MG CONT INF (17:13)
[2025-07-19] VITALS (43 sets, daily range): BP systolic 142–200; BP diastolic 54–97; PULSE 61–89; RESP 16–36; TEMP 36.4–38.3; O2SAT 91–99; BMI 19.0
[2025-07-19] MEDS: dexMEDEtomidine 400 MCG in 0.9% Normal Saline (100mL Bag) 96 ML 9.5 MCG CONT INF (00:38)
[2025-07-19] MEDS: CHLORHEXIDINE GLUC 2% CLOTH 1 EACH TOWELETTE TOPICAL (02:44)
[2025-07-19] MEDS: fentaNYL drip 100 ML 15 MCG CONT INF ×2 (02:44→09:31)
[2025-07-19] MEDS: 0.9% Saline Lock 10 ML Syringe IV ×3 (02:51→22:56)
[2025-07-19 03:04] LABS: Hematocrit 31.3 % (37-47); Hemoglobin 10.2 g/dL (12.0-15.0); Immature Granulocytes Count 0.060 X10^3/uL (0.0-0.0); Mean Corp Hgb Conc 32.6 g/dL (32-36); Mean Corpuscular Volume 88.4 fL (81-99); Mean Platelet Vol. 9.5 fl (6.2-12.0); NRBC Flagged by Analyzer 0 % (0-5); POSITIVE DIFFERENTIAL YES; Platelet Count 348 K/mm3 (150-450); RBC Distribution Width CV 15.3 % (11.6-14.6); RBC Distribution Width SD 49.1 fl (35.1-43.9); Red Blood Count 3.54 M/mm3 (4.2-5.4); White Blood Count 8.5 K/mm3 (4.4-11.0)
[2025-07-19 03:37] LABS: Anion Gap 13 (5-15); BUN 37 mg/dL (4-19); BUN/Creat Ratio 41.1 RATIO (10-20); Calcium,Total 7.4 mg/dL (7.6-11.0); Carbon Dioxide 20.7 mmol/L (21.0-32.0); Chloride 106 mmol/L (98-108); Estimated Creatinine Clearance 46.22 ml/min (50-250); Glucose 199 mg/dL (70-99); Potassium 3.0 mmol/L (3.3-5.1)
[2025-07-19 05:07] LABS: HEPATITIS B SURFACE AG Negative (Negative); Hep C Antibodies Non Reactive (Non Reactive)
[2025-07-19 05:14] LABS: Base Excess 3 mmol/L (-2 to +2); FI02 30.0; PEEP 5; PO2 53 mmHG (75-100); RR 20; SITE R Brach; SO2 89 % (95-99)
[2025-07-19] MEDS: Dorzolamide 2% 10ml Bottle 1 DRP OPHTHALMIC ×3 (05:15→20:38)
[2025-07-19] MEDS: Piperacil/Tazobactam 3.375 GM in 0.9% Normal Saline (50mL MB+) 50 ML IV ×3 (05:15→20:39)
[2025-07-19] MEDS: 0.9% Normal Saline (250mL Bag) 250 ML 15 ML IV (05:17)
[2025-07-19] MEDS: TITRATION PARAMETER CHANGE 1 EACH IV (05:32)
--- NOTE | 2025-07-19 05:56 | RAD_ITS ---
PROCEDURE: CHEST 1 VIEW (PORTABLE) 07/19/2025 REASON FOR EXAM: RESPIRATORY FAILURE TECHNIQUE: Frontal view of the chest. COMPARISON: Chest x-ray 07/17/2025. FINDINGS: Hardware: The ET tube terminates 4 cm above the steve. The NG tube descends into the stomach. Monitor electrodes overlie the chest. Heart: No cardiomegaly. Lungs: Improved within perihilar densities. No pleural effusion or pneumothorax. Bones: No acute bony abnormalities. Other: RAD/Chest 1 View (Portable) IMPRESSION: Tubes are as detailed. Improvement in perihilar densities. Reading Location: [id number]
--- NOTE | 2025-07-19 07:58 | PN.HOSP_ITS ---
Reason for Visit Chief Complaint: SOB. Subjective Subjective Still on the ventilator with low-grade temps. Objective Data Objective Data Vital Signs: Vital Signs Temp Pulse Resp BP Pulse Ox O2 Del Method O2 Flow Rate 37.4 C H 66 20 H 169/58 H 95 Mechanical Ventilator 94 07/19/25 07:00 07/19/25 07:00 07/19/25 07:00 07/19/25 07:00 07/19/25 07:40 07/19/25 07:40 07/17/25 01:00 FiO2 30 07/19/25 07:40 Oxygen Flow Rate (L/min) 94 Oxygen Delivery Method Mechanical Ventilator Weight: 50.5 kg Body Mass Index (BMI) 19.0 Intake & Output: Intake and Output for Last 24 Hours 07/17/25 07/18/25 07/19/25 23:59 23:59 23:59 Intake Total 1917.62 / 1995.00 2249.70 / 2868.53 1140.84 / 1140.84 Output Total 1535 / 1710 2050 / 2050 150 / 150 Balance 382.62 / 285.00 199.70 / 818.53 990.84 / 990.84 Lab / Micro Data 07/19/25 02:55 07/19/25 02:55 Labs: Laboratory Results - last 24 hr 07/18/25 10:27: Vancomycin Trough 7.7, Hepatitis A IgM Ab Negative, Hep Bs Antigen Negative, Hep B Core IgM Ab Negative, Hepatitis C Ab (EIA) Non Reactive, Hep C Ab Comment Comment 07/18/25 11:53: POC Glucose 192 H 07/18/25 17:39: POC Glucose 187 H 07/18/25 23:31: POC Glucose 190 H 07/19/25 02:55: WBC 8.5, RBC 3.54 L, Hgb 10.2 L, Hct 31.3 L, MCV 88.4, MCH 28.8, MCHC 32.6, RDW Std Deviation 49.1 H, RDW Coeff of Shivam 15.3 H, Plt Count 348, MPV 9.5, Immature Gran % (Auto) 0.700, Neut % (Auto) 90.1 H, Lymph % (Auto) 4.7 L, [place] % (Auto) 4.3, Eos % (Auto) 0.1, Baso % (Auto) 0.1, Absolute Neuts (auto) 7.7, Absolute Lymphs (auto) 0.40 L, Nucleated RBC % 0, Sodium 140, Potassium 3.0 L, Chloride 106, Carbon Dioxide 20.7 L, Anion Gap 13, BUN 37 H, Creatinine 0.89, Estim Creat Clear Calc 46.22 L, Est GFR (MDRD) Non-Af 69, BUN/Creatinine Ratio 41.1 H, Glucose 199 H, Calcium 7.4 L 07/19/25 05:14: POC Glucose 192 H Micro: Microbiology 07/16/25 03:44 Urine, Catheterized Urine Culture - Final Culture exhibits no growth. 07/16/25 03:36 Sputum, Induced/Lukens Gram Stain - Final 07/16/25 03:36 Sputum, Induced/Lukens Respiratory Culture - Final Mixed normal respiratory renu. No Streptococcus pneumoniae, beta-hemolytic Streptococcus or Staphylococcus aureus isolated. 07/16/25 10:30 Nasal Secretion MRSA (PCR) - Final 07/16/25 09:20 Mucosa - Nasopharyngeal Respiratory Panel (PCR) - Final 07/16/25 08:25 Urine Catheter - Madrigal Legionella Antigen - Final 07/16/25 08:25 Urine Catheter - Madrigal Streptococcus pneumoniae Antigen (M - Final 07/16/25 03:44 Mucosa - Nose SARS-CoV-2, Influenza & RSV (PCR) - Final ABG Data ABG results: ABG 07/19/25 05:10 Specimen Type ART Sample Site R Brach pH 7.48 H Bicarbonate Actual 27.0 H Total CO2 28 Base Excess 3 H O2 Saturation 89 L O2 % 30.0 ABG pCO2 36.7 ABG pO2 53 L Respiration Rate 20 O2 Delivery Device Adult Vent Vent Mode AC Tidal Volume 400.0 POC PEEP 5 Radiography Diagnostic Testing: Radiology Impression Chest X-Ray 07/19/25 05:56 IMPRESSION: Tubes are as detailed. Improvement in perihilar densities. Reading Location: [facility] Physical Exam Const Constitutional Narrative: intubated. sedated. HEENT head/scalp atraumatic and moist oral mucous membranes HEENT Narrative: ETT OGT in place. Resp normal respiratory effort, no retractions, no use of accessory muscles and clear to auscultation bilaterally Cardio regular rate and regular rhythm GI normal to inspection, nondistended, normoactive bowel sounds, soft to palpation, non-tender and non-distended Neuro Sensorium / Orientation: awake and alert Assessment & Plan Assessment/Plan (1) COPD exacerbation: (2) Pneumonia: QUALIFIERS: Laterality: bilateral Lung location: unspecified part of lung Pneumonia type: due to unspecified organism Qualified Code(s): J18.9 - Pneumonia, unspecified organism (3) Acute hypoxic on chronic hypercapnic respiratory failure: (4) CHF exacerbation: QUALIFIERS: Heart failure type: unspecified Qualified Code(s): I 50.9 - Heart failure, unspecified (5) Elevated troponin: (6) Hypertensive emergency: (7) Transaminitis: PLAN: Plan Acute Hypoxic and Hypercapnic Respiratory Failure * ABG pH 7.06/ PCO2 75.1 mmHg/ PO2 73 mmHg/ HCO3 21.2 mmHg @ 86% on * ventilator * CCM for vent mgmt * 2/2 to AECOPD, AECHF, possible pneumonia * on empiric abx. * respiratory panel, legionella strep antigens negative AECOPD: * Started on IV methylprednisolone and give scheduled plus prn nebulizers. Acute HFpEF * concern for flash pulmonary edema. * EF 55% on echo from 07/16/2025 * on IV furosemide. Elevated troponin * trending down. No wall motion abnormality on echo. Hypertensive emergency * improved * elevated blood pressure of 257/127 mmHg with concerns for flash pulmonary edema. * On IV furosemide and PRN hydralazine. Hyperglycemia * improved * a1c 6.1 * of 368 mg/dL present on admission suspicious for DM-2 adding to the burden of disease * add glargine given persistent hyperglycemia. Chronic conditions: * CAD; s/p stents x 3 RCA + LAD x 1 (2016) on BASA plus prn SL NTG - Continue BASA daily and serialize troponin. 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 * Hyperlipidemia; on atorvastatin - Maintain statin and check Lipid Profile. * OAB; on oxybutynin - Continue present therapy. * Depression; on venlafaxine - Restart this agent after extubation. * Glaucoma; on brimonidine daily and dorzolamide eyes drops TID - Maintain current therapy. DVT/GI prophylaxis - Lovenox 40 mg sq daily plus SCD's. Pantoprazole 40 mg IV daily. Charges/Coding Visit Charges Inpatient E&M: 30589 Subs Hosp L2
[2025-07-19] MEDS: Chlorhexidine 15 ML PO ×2 (09:09→20:38)
[2025-07-19] MEDS: BRIMONIDINE 0.2% 5ML BOTTLE 1 DRP OPHTHALMIC (09:09)
[2025-07-19] MEDS: Pantoprazole Sodium 40 MG in 0.9% Normal Saline (100mL MB+) 100 ML 330 MG IV (09:10)
[2025-07-19] MEDS: Insulin Glargine-YFGN 100 UNIT/ML Pen 10 UNIT SC (09:12)
[2025-07-19] MEDS: Vital AF 1.2 Cal Liquid 1,000 ML 45 ML GT (09:30)
[2025-07-19] MEDS: dexMEDEtomidine 400 MCG in 0.9% Normal Saline (100mL Bag) 96 ML 10.1 MCG CONT INF (09:56)
[2025-07-19] MEDS: Vancomycin HCl 1,250 MG in 0.9% Normal Saline (250mL Bag) 250 ML 167 MG IV (11:27)
--- NOTE | 2025-07-19 11:44 | PCM.PN.TICU ---
Objective Data Objective Data Vital Signs: Vital Signs Last response Temperature 37.7 C H 07/19/25 11:00 Temperature Source Core 07/19/25 11:00 Pulse Rate 61 07/19/25 11:00 Pulse Strength Weak (1+) 07/18/25 19:38 Respiratory Rate 20 H 07/19/25 11:00 Respiratory Effort Mechanically Ventilated 07/19/25 07:40 Respiratory Depth Normal 07/19/25 07:40 Respiratory Pattern Normal 07/19/25 10:31 Blood Pressure 166/66 H 07/19/25 11:00 Blood Pressure Mean 99 07/19/25 11:00 Blood Pressure Source Monitor 07/19/25 11:00 Blood Pressure Position Semi-Fowlers 07/19/25 11:00 Blood Pressure Location Right Forearm 07/19/25 11:00 Pulse Ox 96 07/19/25 11:00 Oxygen Delivery Method Mechanical Ventilator 07/19/25 11:00 Oxygen Flow Rate (L/min) 94 07/17/25 01:00 Fraction of Inspired Oxygen (FIO2) 30 07/19/25 11:00 I&O: I&O Last 24 Hours 07/18/25 07/18/25 07/19/25 11:59 23:59 11:59 Intake Total 1212.90 / 2868.53 1036.80 / 2868.53 1810.87 / 1810.87 Output Total 375 / 2050 1675 / 2050 150 / 150 Balance 837.90 / 818.53 -638.20 / 818.53 1660.87 / 1660.87 I&O: Total Stay 07/16/25 03:07 thru 07/19/25 11:29 Intake Total 7177.43 Output Total 6860 Balance 317.43 Current Meds Ordered / Administered: Current meds ordered / Administered Generic Name Dose Route Start Last Admin Trade Name Freq PRN Reason Stop Dose Admin Albuterol/Ipratropium 3 ml 07/16/25 10:15 07/19/25 06:37 Ipratropium/Albuterol Sulfate 3 Ml Ampul.Neb INHALATION 3 ml Q6H.RT TIMOTHY Administration Amlodipine Besylate 5 mg 07/17/25 14:45 07/19/25 09:09 Amlodipine 5 Mg Tablet PO 5 mg DAILY TIMOTHY Administration Protocol Aspirin 81 mg 07/18/25 10:00 07/19/25 09:09 Aspirin 81 Mg Tab.Chew GT 81 mg BREAKFAST TIMOTHY Administration Atorvastatin Calcium 40 mg 07/16/25 22:00 07/18/25 20:25 Atorvastatin Calcium 40 Mg Tablet PO 40 mg QHS TIMOTHY Administration Brimonidine Tartrate 1 drp 07/16/25 10:00 07/19/25 09:09 Brimonidine 0.2% 5ml Bottle OPHTHALMIC 1 drp DAILY TIMOTHY Administration Chlorhexidine Gluconate 1 each 07/17/25 10:00 07/19/25 02:44 Chlorhexidine Gluc 2% Cloth 1 Each [place] TOPICAL 1 each DAILY TIMOTHY Administration Chlorhexidine Gluconate 15 ml 07/17/25 10:00 07/19/25 09:09 Chlorhexidine 15 Ml PO 15 ml BID TIMOTHY Administration Clopidogrel Bisulfate 75 mg 07/18/25 10:00 07/19/25 09:10 Clopidogrel Bisulfate 75 Mg Tablet PO 75 mg DAILY TIMOTHY Administration Dorzolamide HCl 1 drp 07/16/25 14:00 07/19/25 05:15 Dorzolamide 2% 10ml Bottle OPHTHALMIC 1 drp TID TIMOTHY Administration Enoxaparin Sodium 40 mg 07/18/25 10:00 07/19/25 09:09 Enoxaparin 40 Mg/0.4 Ml Syringe SC 40 mg DAILY TIMOTHY Administration Furosemide 40 mg 07/16/25 07:56 07/19/25 09:09 Furosemide 40 Mg/4 Ml Vial IV 40 mg DAILY TIMOTHY Administration Protocol Glucagon 1 mg 07/16/25 07:56 Glucagon 1 Mg/Ml Syringe IM X1 PRN Hypoglycemia Protocol Hydralazine HCl 5 mg 07/16/25 07:56 07/17/25 16:27 Hydralazine 20 Mg/Ml Vial IV 5 mg Q8H PRN PRN Administration SBP GREATER THAN 180 Protocol Dextrose 250 mls @ 0 mls/hr 07/16/25 07:56 Dextrose 10%-Water IV .Q0M PRN HYPOGLYCEMIA Protocol As Directed Sodium Chloride 250 mls @ 15 mls/hr 07/16/25 07:59 07/19/25 07:27 IV 0 mls/hr .[id number] PRN Infusion Saline Flush Sodium Chloride 250 mls @ 15 mls/hr 07/16/25 07:59 IV .[id number] PRN Additional IVPB Infusion Fentanyl 100 mls @ 5 mls/hr 07/16/25 08:15 07/19/25 11:10 CONT INF 125 mcg/hr UD TIMOTHY 12.5 mls/hr Protocol Titration 50 MCG/HR Pantoprazole Sodium 40 mg/ 100 mls @ 330 mls/hr 07/16/25 08:30 07/19/25 09:39 Sodium Chloride IV Infused Q24 TIMOTHY Infusion Vancomycin IV-PHARMACY TO DOSE 500 mls @ 250 mls/hr 07/16/25 08:29 1 each/ Sodium Chloride IV X1 PRN Rx to Dose Protocol Piperacillin Sod/Tazobactam 50 mls @ 12.5 mls/hr 07/16/25 14:00 07/19/25 09:25 Sod 3.375 gm/ Sodium Chloride IV Infused Q8 TIMOTHY Infusion Dexmedetomidine HCl 400 mcg/ 100 mls @ 6.313 mls/hr 07/17/25 08:15 07/19/25 11:29 Sodium Chloride CONT INF 0.9 mcg/kg/hr .[id number] TIMOTHY 11.4 mls/hr Protocol Titration 0.5 MCG/KG/HR Enteral Nutritional Formula 1,000 mls @ 45 mls/hr 07/17/25 10:05 07/19/25 09:30 Vital Af 1.2 Blake Liquid GT 45 mls/hr .[id number] TIMOTHY Administration Propofol 1,000 mg in 100 mls @ 3.03 mls/hr 07/18/25 01:15 07/19/25 11:27 Diprivan CONT INF 0 mcg/kg/min .Q12H TIMOTHY 0 mls/hr Protocol Titration 10 MCG/KG/MIN Vancomycin HCl 1,250 mg/ 275 mls @ 167 mls/hr 07/18/25 12:00 07/19/25 11:27 Sodium Chloride IV 167 mls/hr Q24H TIMOTHY Administration Insulin Glargine 10 unit 07/19/25 10:00 07/19/25 09:12 Insulin Glargine-Yfgn 100 Unit/Ml Pen SC 10 unit DAILY TIMOTHY Administration Insulin Human Lispro 0 unit 07/17/25 12:00 07/19/25 11:26 Insulin Lispro 100 Unit/Ml Insuln.Pen SC Not Given Q6H TIMOTHY Protocol Methylprednisolone Sodium Succinate 60 mg 07/16/25 10:00 07/19/25 09:11 Methylprednisolone Sod Succ 40 Mg/Ml Vial IV 60 mg BID TIMOTHY Administration Quetiapine Fumarate 25 mg 07/18/25 10:00 07/19/25 09:10 Quetiapine 25 Mg Tablet GT 25 mg BID TIMOTHY Administration Protocol Sodium Chloride 10 - 40 ml 07/16/25 07:59 07/19/25 02:51 0.9% Saline Lock 10 Ml Syringe IV 10 ml UD PRN Administration SALINE FLUSH Sodium Chloride 10 - 40 ml 07/18/25 06:42 0.9% Saline Lock 10 Ml Syringe IV UD PRN SALINE FLUSH Tolterodine Tartrate 2 mg 07/16/25 10:00 07/19/25 09:09 Tolterodine Tartrate 2 Mg Cap.Sa PO 2 mg DAILY TIMOTHY Administration Vancomycin Protocol 1 lab 07/20/25 10:30 Vancomycin Trough/Random Due MC 07/20/25 12:30 DAILY TIMOTHY Lab / Micro Data Attestation: I reviewed the patient's lab results. 07/19/25 02:55 07/19/25 02:55 Labs: Laboratory Results - last 24 hr 07/18/25 10:27: Hepatitis A IgM Ab Negative, Hep Bs Antigen Negative, Hep B Core IgM Ab Negative, Hepatitis C Ab (EIA) Non Reactive, Hep C Ab Comment Comment 07/18/25 11:53: POC Glucose 192 H 07/18/25 17:39: POC Glucose 187 H 07/18/25 23:31: POC Glucose 190 H 07/19/25 02:55: WBC 8.5, RBC 3.54 L, Hgb 10.2 L, Hct 31.3 L, MCV 88.4, MCH 28.8, MCHC 32.6, RDW Std Deviation 49.1 H, RDW Coeff of Shivam 15.3 H, Plt Count 348, MPV 9.5, Immature Gran % (Auto) 0.700, Neut % (Auto) 90.1 H, Lymph % (Auto) 4.7 L, [place] % (Auto) 4.3, Eos % (Auto) 0.1, Baso % (Auto) 0.1, Absolute Neuts (auto) 7.7, Absolute Lymphs (auto) 0.40 L, Nucleated RBC % 0, Sodium 140, Potassium 3.0 L, Chloride 106, Carbon Dioxide 20.7 L, Anion Gap 13, BUN 37 H, Creatinine 0.89, Estim Creat Clear Calc 46.22 L, Est GFR (MDRD) Non-Af 69, BUN/Creatinine Ratio 41.1 H, Glucose 199 H, Calcium 7.4 L 07/19/25 05:14: POC Glucose 192 H 07/19/25 11:25: POC Glucose 125 H Micro: Microbiology 07/16/25 03:44 Urine, Catheterized Urine Culture - Final Culture exhibits no growth. 07/16/25 03:36 Sputum, Induced/Lukens Gram Stain - Final 07/16/25 03:36 Sputum, Induced/Lukens Respiratory Culture - Final Mixed normal respiratory renu. No Streptococcus pneumoniae, beta-hemolytic Streptococcus or Staphylococcus aureus isolated. ABG Data ABG results: ABG 07/19/25 05:10 Specimen Type ART Sample Site R Brach pH 7.48 H Bicarbonate Actual 27.0 H Total CO2 28 Base Excess 3 H O2 Saturation 89 L O2 % 30.0 ABG pCO2 36.7 ABG pO2 53 L Respiration Rate 20 O2 Delivery Device Adult Vent Vent Mode AC Tidal Volume 400.0 POC PEEP 5 Imaging Radiology Impression Chest X-Ray 07/19/25 05:56 IMPRESSION: Tubes are as detailed. Improvement in perihilar densities. Reading Location: [facility] Assessment and Plan . Assessment and plan: [facility] Medical Records Department [address] [place] [id number] Progress Note - [employer] 07/18/25 0739 MR#: [id number] Acct: [id number] Name: ZABRINA HSU Rep #: [id number] : 1955 70 From: Eleazar Valle DO PCP: SEUN Alvarez Status: ADM IN Location: ICU ICU01-1 IMPRESSIONS: 1. Acute respiratory failure with hypoxemia and hypercapnia -multifactorial with components of AE COPD plus acute heart failure/ pulmonary edema - easily supported with mechanical ventilation since - failing SAT/ SBT yesterday with sedation adjusted - will retry SAT/ SBT daily - explained to this may be just a matter of requiring serial efforts to get past - repeat CXR if no progress over next 24 hours 2. History of coronary artery disease status post PCI/history of hypertrophic cardiomyopathy/valvular heart disease - diuresis for possible ASHF 3. Chronic tobacco dependency/depression/glaucoma/hyperlipidemia Complicates care, management, recovery and prognosis. Continue supportive measures as noted above. PT/OT to work with the patient. Continue tube feeding as tolerated. RECOMMENDATIONS: - blood gases reviewed, vent adjusted - contnue sedation - seroquel added - empiric antimicrobials. - bronchodilators and steroids. - diuresis - tube feeding as tolerated. - standard ICU prophylaxis. Reid Murillo MD Critical Care Time: 50 minutes The entirety of this encounter was done via Telemedicine Physical Exam Const General Appearance: patient mechanically ventilated Orientation / Consciousness: lethargic Exam Limitations: physical limitations HEENT Head and Scalp: normal to inspection and normocephalic Mouth: endotracheal tube in place and OG tube in place Eyes PERRL Neck full ROM Chest Chest: symmetrical chest wall rise Resp no use of accessory muscles Effort and Inspection: symmetric chest movement and prolonged expiratory phase Auscultation: diminished lung sounds Cardio regular rate Subjective Subjective Events reviewed. Failed SBT yesterday with evident anxiety and also desaturation. at bedside this AM.
[2025-07-19] MEDS: dexMEDEtomidine 400 MCG in 0.9% Normal Saline (100mL Bag) 96 ML 15.2 MCG CONT INF (17:07)
[2025-07-19] MEDS: Acetaminophen 650 MG/20 ML UDC GT (17:09)
[2025-07-19] MEDS: fentaNYL drip 100 ML 12.5 MCG CONT INF (17:35)
[2025-07-19] MEDS: Potassium Chloride Oral Soln 20 MEQ/15 ML UDC 60 MEQ PO (20:33)
--- NOTE | 2025-07-19 20:56 | NURSING ---
Patient became extremely agitated while performing oral care and repositioning in bed. Attempts to calm down by talking to her were unsuccessful, patient still continuing to thrash around in the bed and aggressively shake her head back and forth. Sedation meds increased, sat at bedside until patient began to calm down. Pillows and blanket reapplied for comfort.
[2025-07-19] MEDS: Dexmedetomidine 1,000 mcg in 0.9% NS 240 mL 18.9 MCG CONT INF (22:56)
[2025-07-20] VITALS (37 sets, daily range): BP systolic 117–184; BP diastolic 50–75; PULSE 58–74; RESP 20–30; TEMP 36.4–38.7; O2SAT 93–99; BMI 19.2
[2025-07-20] MEDS: fentaNYL drip 100 ML 17.5 MCG CONT INF ×2 (00:46→06:45)
[2025-07-20] MEDS: CHLORHEXIDINE GLUC 2% CLOTH 1 EACH TOWELETTE TOPICAL (00:46)
[2025-07-20 03:31] LABS: Hematocrit 33.0 % (37-47); Hemoglobin 10.5 g/dL (12.0-15.0); Immature Granulocytes Count 0.100 X10^3/uL (0.0-0.0); Mean Corp Hgb Conc 31.8 g/dL (32-36); Mean Corpuscular Volume 89.2 fL (81-99); Mean Platelet Vol. 9.6 fl (6.2-12.0); NRBC Flagged by Analyzer 0 % (0-5); POSITIVE DIFFERENTIAL YES; Platelet Count 385 K/mm3 (150-450); RBC Distribution Width CV 15.4 % (11.6-14.6); RBC Distribution Width SD 49.8 fl (35.1-43.9); Red Blood Count 3.70 M/mm3 (4.2-5.4); White Blood Count 11.4 K/mm3 (4.4-11.0)
[2025-07-20 03:56] LABS: Anion Gap 12 (5-15); BUN 42 mg/dL (4-19); BUN/Creat Ratio 47.3 RATIO (10-20); Calcium,Total 8.2 mg/dL (7.6-11.0); Carbon Dioxide 22.2 mmol/L (21.0-32.0); Chloride 105 mmol/L (98-108); Estimated Creatinine Clearance 46.22 ml/min (50-250); Glucose 194 mg/dL (70-99); Potassium 4.4 mmol/L (3.3-5.1)
[2025-07-20] MEDS: 0.9% Saline Lock 10 ML Syringe IV (05:11)
[2025-07-20] MEDS: Dorzolamide 2% 10ml Bottle 1 DRP OPHTHALMIC ×3 (05:11→21:03)
[2025-07-20] MEDS: Piperacil/Tazobactam 3.375 GM in 0.9% Normal Saline (50mL MB+) 50 ML IV ×3 (05:11→21:02)
[2025-07-20] MEDS: TITRATION PARAMETER CHANGE 1 EACH IV (05:11)
--- NOTE | 2025-07-20 08:36 | PN.HOSP_ITS ---
Reason for Visit Chief Complaint: SOB. Subjective Subjective Maxxed on dexmedetomidine and fentanyl. Objective Data Objective Data Vital Signs: Vital Signs Temp Pulse Resp BP Pulse Ox O2 Del Method O2 Flow Rate 37.4 C H 65 20 H 163/65 H 93 Mechanical Ventilator 94 07/20/25 07:00 07/20/25 07:00 07/20/25 07:00 07/20/25 07:00 07/20/25 07:00 07/20/25 07:00 07/17/25 01:00 FiO2 30 07/20/25 07:00 Oxygen Flow Rate (L/min) 94 Oxygen Delivery Method Mechanical Ventilator Weight: 51 kg Body Mass Index (BMI) 19.2 Intake & Output: Intake and Output for Last 24 Hours 07/18/25 07/19/25 07/20/25 23:59 23:59 23:59 Intake Total 2249.70 / 2868.53 2999.69 / 3036.09 477.02 / 477.02 Output Total 2049 / 2049 2100 / 2100 275 / 275 Balance 199.70 / 818.53 899.69 / 936.09 202.02 / 202.02 Lab / Micro Data 07/20/25 03:24 07/20/25 03:24 Labs: Laboratory Results - last 24 hr 07/19/25 11:25: POC Glucose 125 H 07/19/25 17:06: POC Glucose 166 H 07/19/25 22:54: POC Glucose 163 H 07/20/25 03:24: WBC 11.4 H, RBC 3.70 L, Hgb 10.5 L, Hct 33.0 L, MCV 89.2, MCH 28.4, MCHC 31.8 L, RDW Std Deviation 49.8 H, RDW Coeff of Shivam 15.4 H, Plt Count 385, MPV 9.6, Immature Gran % (Auto) 0.900, Neut % (Auto) 89.3 H, Lymph % (Auto) 5.2 L, [place] % (Auto) 4.5, Eos % (Auto) 0.0, Baso % (Auto) 0.1, Absolute Neuts (auto) 10.2 H, Absolute Lymphs (auto) 0.59 L, Nucleated RBC % 0, Sodium 139, Potassium 4.4, Chloride 105, Carbon Dioxide 22.2, Anion Gap 12, BUN 42 H, Creatinine 0.89, Estim Creat Clear Calc 46.22 L, Est GFR (MDRD) Non-Af 69, B UN/Creatinine Ratio 47.3 H, Glucose 194 H, Calcium 8.2 07/20/25 05:07: POC Glucose 176 H Micro: Microbiology 07/16/25 04:20 Blood Culture (Wb) - Left Hand Blood Culture - Preliminary No growth in 48 hours. 07/16/25 04:05 Blood Culture (Wb) - Right Hand Blood Culture - Preliminary No growth in 48 hours. 07/16/25 03:44 Urine, Catheterized Urine Culture - Final Culture exhibits no growth. 07/16/25 03:36 Sputum, Induced/Lukens Gram Stain - Final 07/16/25 03:36 Sputum, Induced/Lukens Respiratory Culture - Final Mixed normal respiratory renu. No Streptococcus pneumoniae, beta-hemolytic Streptococcus or Staphylococcus aureus isolated. 07/16/25 10:30 Nasal Secretion MRSA (PCR) - Final 07/16/25 09:20 Mucosa - Nasopharyngeal Respiratory Panel (PCR) - Final 07/16/25 08:25 Urine Catheter - Madrigal Legionella Antigen - Final 07/16/25 08:25 Urine Catheter - Madrigal Streptococcus pneumoniae Antigen (M - Final 07/16/25 03:44 Mucosa - Nose SARS-CoV-2, Influenza & RSV (PCR) - Final Physical Exam Const no apparent distress Constitutional Narrative: follows commands. intubated. HEENT head/scalp atraumatic and moist oral mucous membranes Resp normal respiratory effort, no retractions, no use of accessory muscles and clear to auscultation bilaterally Cardio regular rate, regular rhythm, S1 normal heart sound and S2 normal heart sound GI normal to inspection, nondistended, normoactive bowel sounds, soft to palpation and non-tender Extremity normal to inspection and full ROM Neuro moves all extremities Sensorium / Orientation: awake Assessment & Plan Assessment/Plan (1) COPD exacerbation: (2) Pneumonia: QUALIFIERS: Laterality: bilateral Lung location: unspecified part of lung Pneumonia type: due to unspecified organism Qualified Code(s): J18.9 - Pneumonia, unspecified organism (3) Acute hypoxic on chronic hypercapnic respiratory failure: (4) CHF exacerbation: QUALIFIERS: Heart failure type: unspecified Qualified Code(s): I 50.9 - Heart failure, unspecified (5) Elevated troponin: (6) Hypertensive emergency: (7) Transaminitis: PLAN: Plan Acute Hypoxic and Hypercapnic Respiratory Failure * ABG pH 7.06/ PCO2 75.1 mmHg/ PO2 73 mmHg/ HCO3 21.2 mmHg @ 86% on * ventilator * [facility] for vent mgmt * 2/2 to AECOPD, AECHF, possible pneumonia * on empiric abx. * respiratory panel, legionella strep antigens negative AECOPD: * Continue IV methylprednisolone and give scheduled plus prn nebulizers. Acute HFpEF * concern for flash pulmonary edema. * EF 55% on echo from 07/16/2025 * on IV furosemide 40/d Elevated troponin * trending down. No wall motion abnormality on echo. * Demand ischemia from respiratory failure and hypertensive emergency. * No additional work up Hypertensive emergency * improved * elevated blood pressure of 257/127 mmHg with concerns for flash pulmonary edema. * On IV furosemide and PRN hydralazine. Hyperglycemia * improved * a1c 6.1 * of 368 mg/dL present on admission suspicious for DM-2 adding to the burden of disease * add glargine given persistent hyperglycemia with steroids and tube feeds. Chronic conditions: * CAD; s/p stents x 3 RCA + LAD x 1 (2017) on BASA plus prn SL NTG - Continue BASA daily and serialize troponin. 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 * Hyperlipidemia; on atorvastatin - Maintain statin and check Lipid Profile. * OAB; on oxybutynin - Continue present therapy. * Depression; on venlafaxine - Restart this agent after extubation. * Glaucoma; on brimonidine daily and dorzolamide eyes drops TID - Maintain current therapy. DVT/GI prophylaxis - Lovenox 40 mg sq daily plus SCD's. Pantoprazole 40 mg IV daily. Charges/Coding Visit Charges Inpatient E&M: 10433 Subs Hosp L2
--- NOTE | 2025-07-20 09:00 | PN.CC_ITS ---
Objective Data Objective Data Vital Signs: Vital Signs Last response 3 Temperature 37.4 C H 07/20/25 08:00 Temperature Source Core 07/20/25 08:00 Pulse Rate 68 07/20/25 08:00 Pulse Strength Weak (1+) 07/19/25 19:08 Respiratory Rate 20 H 07/20/25 08:00 Respiratory Effort Normal, Non-Labored 07/20/25 08:00 Respiratory Depth Normal 07/20/25 08:00 Respiratory Pattern Normal 07/20/25 08:00 Blood Pressure 177/68 H 07/20/25 08:00 Blood Pressure Mean 104 07/20/25 08:00 Blood Pressure Source Monitor 07/20/25 08:00 Blood Pressure Position Semi-Fowlers 07/20/25 08:00 Blood Pressure Location Left Arm 07/20/25 08:00 Pulse Ox 96 07/20/25 08:00 Oxygen Delivery Method Mechanical Ventilator 07/20/25 08:00 Oxygen Flow Rate (L/min) 94 07/17/25 01:00 Fraction of Inspired Oxygen (FIO2) 30 07/20/25 08:00 I&O: I&O Last 24 Hours 3 07/19/25 07/19/25 07/20/25 11:59 23:59 11:59 Intake Total 1820.60 / 3036.09 1179.09 / 3036.09 477.02 / 477.02 Output Total 400 / 2100 1700 / 2100 275 / 275 Balance 1420.60 / 936.09 -520.91 / 936.09 202.02 / 202.02 I&O: Total Stay 3 07/16/25 03:07 thru 07/20/25 07:51 Intake Total 8843.27 Output Total 9085 Balance -241.73 Current Meds Ordered / Administered: Current meds ordered / Administered 3 Generic Name Dose Route Start Last Admin Trade Name Freq PRN Reason Stop Dose Admin Acetaminophen 650 mg 07/19/25 16:10 07/19/25 17:09 Acetaminophen 650 Mg/20 Ml Udc GT 650 mg Q6H PRN PRN Administration Pain 1-10 or Fever Albuterol/Ipratropium 3 ml 07/16/25 10:15 07/20/25 06:54 Ipratropium/Albuterol Sulfate 3 Ml Ampul.Neb INHALATION 3 ml Q6H.RT TIMOTHY Administration Amlodipine Besylate 5 mg 07/17/25 14:45 07/19/25 09:09 Amlodipine 5 Mg Tablet PO 5 mg DAILY TIMOTHY Administration Protocol Aspirin 81 mg 07/18/25 10:00 07/19/25 09:09 Aspirin 81 Mg Tab.Chew GT 81 mg BREAKFAST TIMOTHY Administration Atorvastatin Calcium 40 mg 07/16/25 22:00 07/19/25 20:33 Atorvastatin Calcium 40 Mg Tablet PO 40 mg QHS TIMOTHY Administration Brimonidine Tartrate 1 drp 07/16/25 10:00 07/19/25 09:09 Brimonidine 0.2% 5ml Bottle OPHTHALMIC 1 drp DAILY TIMOTHY Administration Chlorhexidine Gluconate 1 each 07/17/25 10:00 07/20/25 00:46 Chlorhexidine Gluc 2% Cloth 1 Each [place]lette TOPICAL 1 each DAILY TIMOTHY Administration Chlorhexidine Gluconate 15 ml 07/17/25 10:00 07/19/25 20:38 Chlorhexidine 15 Ml PO 15 ml BID TIMOTHY Administration Clopidogrel Bisulfate 75 mg 07/18/25 10:00 07/19/25 09:10 Clopidogrel Bisulfate 75 Mg Tablet PO 75 mg DAILY TIMOTHY Administration Dorzolamide HCl 1 drp 07/16/25 14:00 07/20/25 05:11 Dorzolamide 2% 10ml Bottle OPHTHALMIC 1 drp TID TIMOTHY Administration Enoxaparin Sodium 40 mg 07/18/25 10:00 07/19/25 09:09 Enoxaparin 40 Mg/0.4 Ml Syringe SC 40 mg DAILY TIMOTHY Administration Furosemide 40 mg 07/16/25 07:56 07/19/25 09:09 Furosemide 40 Mg/4 Ml Vial IV 40 mg DAILY TIMOTHY Administration Protocol Glucagon 1 mg 07/16/25 07:56 Glucagon 1 Mg/Ml Syringe IM X1 PRN Hypoglycemia Protocol Hydralazine HCl 5 mg 07/16/25 07:56 07/19/25 18:02 Hydralazine 20 Mg/Ml Vial IV 5 mg Q8H PRN PRN Administration SBP GREATER THAN 180 Protocol Dextrose 250 mls @ 0 mls/hr 07/16/25 07:56 Dextrose 10%-Water IV .Q0M PRN HYPOGLYCEMIA Protocol As Directed Sodium Chloride 250 mls @ 15 mls/hr 07/16/25 07:59 07/20/25 06:02 IV 0 mls/hr .[id number] PRN Infusion Saline Flush Sodium Chloride 250 mls @ 15 mls/hr 07/16/25 07:59 IV .[id number] PRN Additional IVPB Infusion Fentanyl 100 mls @ 5 mls/hr 07/16/25 08:15 07/20/25 07:00 CONT INF 175 mcg/hr UD TIMOTHY 17.5 mls/hr Protocol Titration 50 MCG/HR Pantoprazole Sodium 40 mg/ 100 mls @ 330 mls/hr 07/16/25 08:30 07/19/25 09:39 Sodium Chloride IV Infused Q24 TIMOTHY Infusion Vancomycin IV-PHARMACY TO DOSE 500 mls @ 250 mls/hr 07/16/25 08:29 1 each/ Sodium Chloride IV X1 PRN Rx to Dose Protocol Piperacillin Sod/Tazobactam 50 mls @ 12.5 mls/hr 07/16/25 14:00 07/20/25 05:11 Sod 3.375 gm/ Sodium Chloride IV 12.5 mls/hr Q8 TIMOTHY Administration Enteral Nutritional Formula 1,000 mls @ 45 mls/hr 07/17/25 10:05 07/20/25 02:14 Vital Af 1.2 Blake Liquid GT Not Given .[id number] TIMOTHY Propofol 1,000 mg in 100 mls @ 3.06 mls/hr 07/18/25 01:15 07/20/25 00:41 Diprivan CONT INF Not Given .Q12H TIMOTHY Protocol 10 MCG/KG/MIN Vancomycin HCl 1,250 mg/ 275 mls @ 167 mls/hr 07/18/25 12:00 07/19/25 13:10 Sodium Chloride IV Infused Q24H TIMOTHY Infusion Dexmedetomidine HCl 1,000 mcg/ 250 mls @ 6.375 mls/hr 07/19/25 22:00 07/20/25 07:00 Sodium Chloride CONT INF 1.5 mcg/kg/hr .[id number] TIMOTHY 19.1 mls/hr Protocol Titration 0.5 MCG/KG/HR Insulin Glargine 10 unit 07/19/25 10:00 07/19/25 09:12 Insulin Glargine-Yfgn 100 Unit/Ml Pen SC 10 unit DAILY TIMOTHY Administration Insulin Human Lispro 0 unit 07/17/25 12:00 07/20/25 05:11 Insulin Lispro 100 Unit/Ml Insuln.Pen SC 1 units Q6H TIMOTHY Administration Protocol Methylprednisolone Sodium Succinate 60 mg 07/16/25 10:00 07/19/25 20:38 Methylprednisolone Sod Succ 40 Mg/Ml Vial IV 60 mg BID TIMOTHY Administration Quetiapine Fumarate 50 mg 07/20/25 10:00 Quetiapine 25 Mg Tablet GT BID TIMOTHY Protocol Sodium Chloride 10 - 40 ml 07/16/25 07:59 07/20/25 05:11 0.9% Saline Lock 10 Ml Syringe IV 20 ml UD PRN Administration SALINE FLUSH Sodium Chloride 10 - 40 ml 07/18/25 06:42 0.9% Saline Lock 10 Ml Syringe IV UD PRN SALINE FLUSH Tolterodine Tartrate 2 mg 07/16/25 10:00 07/19/25 09:09 Tolterodine Tartrate 2 Mg Cap.Sa PO 2 mg DAILY TIMOTHY Administration Vancomycin Protocol 1 lab 07/20/25 10:30 Vancomycin Trough/Random Due MC 07/20/25 12:30 DAILY [facility] Lab / Micro Data Attestation: I reviewed the patient's lab results. 07/20/25 03:24 07/20/25 03:24 Labs: Laboratory Results - last 24 hr 07/19/25 11:25: POC Glucose 125 H 07/19/25 17:06: POC Glucose 166 H 07/19/25 22:54: POC Glucose 163 H 07/20/25 03:24: WBC 11.4 H, RBC 3.70 L, Hgb 10.5 L, Hct 33.0 L, MCV 89.2, MCH 28.4, MCHC 31.8 L, RDW Std Deviation 49.8 H, RDW Coeff of Shivam 15.4 H, Plt Count 385, MPV 9.6, Immature Gran % (Auto) 0.900, Neut % (Auto) 89.3 H, Lymph % (Auto) 5.2 L, [place] % (Auto) 4.5, Eos % (Auto) 0.0, Baso % (Auto) 0.1, Absolute Neuts (auto) 10.2 H, Absolute Lymphs (auto) 0.59 L, Nucleated RBC % 0, Sodium 139, Potassium 4.4, Chloride 105, Carbon Dioxide 22.2, Anion Gap 12, BUN 42 H, Creatinine 0.89, Estim Creat Clear Calc 46.22 L, Est GFR (MDRD) Non-Af 69, B UN/Creatinine Ratio 47.3 H, Glucose 194 H, Calcium 8.2 07/20/25 05:07: POC Glucose 176 H Micro: Microbiology 07/16/25 04:20 Blood Culture (Wb) - Left Hand Blood Culture - Preliminary No growth in 48 hours. 07/16/25 04:05 Blood Culture (Wb) - Right Hand Blood Culture - Preliminary No growth in 48 hours. Assessment and Plan . Assessment and plan: IMPRESSIONS: 1. Acute respiratory failure with hypoxemia and hypercapnia -multifactorial with components of AE COPD plus acute heart failure/ pulmonary edema - pulmonary edema has cleared as of 07/19 CXR - continues to fail SAT with weaning of propofol- currently f/Vt is not too bad but she is showing enough distress that my sense is extubation will fail under current circumstances 2. History of coronary artery disease status post PCI/history of hypertrophic cardiomyopathy/valvular heart disease - diuresis for possible ASHF 3. Chronic tobacco dependency/depression/glaucoma/hyperlipidemia Complicates care, management, recovery and prognosis. Continue supportive measures as noted above. PT/OT to work with the patient. Continue tube feeding as tolerated. RECOMMENDATIONS: - blood gases reviewed, vent adjusted - continue daily SAT/ SBT - will increase Seroquel to 50 mg BID - continue remaining sedation regimen but try not to resume propofol - empiric antimicrobials. - continue bronchodilators and steroids. - tube feeding as tolerated. - standard ICU prophylaxis. Reid Murillo MD Critical Care Time: 50 minutes The entirety of this encounter was done via Telemedicine Physical Exam Const General Appearance: in distress and patient mechanically ventilated HEENT Mouth: endotracheal tube in place Resp no use of accessory muscles Auscultation: diminished lung sounds Subjective Subjective Continues to appear anxious/ uncomfortable with weaning of sedation- currently propofol is off and she grimaces/ winces but denies pain.
[2025-07-20] MEDS: BRIMONIDINE 0.2% 5ML BOTTLE 1 DRP OPHTHALMIC (09:31)
[2025-07-20] MEDS: Chlorhexidine 15 ML PO ×2 (09:31→21:05)
[2025-07-20] MEDS: Insulin Glargine-YFGN 100 UNIT/ML Pen 10 UNIT SC (09:32)
[2025-07-20] MEDS: Pantoprazole Sodium 40 MG in 0.9% Normal Saline (100mL MB+) 100 ML 330 MG IV (09:35)
[2025-07-20 11:24] LABS: Vancomycin, Trough Level 13.3 ug/mL (5.0-15.0)
--- NOTE | 2025-07-20 11:37 | PCM.RX.CS ---
Consult Antibiotic Management Pharmacy has been consulted to manage selected antibiotic: Vancomycin Type of Intervention Type of Consult: Follow-up Suspected Infection Suspected Infection: Pneumonia Prior Doses of Antibiotics Prior Doses of Antibiotics Received/Current Regimen: Vancomycin 1250 mg Q24H Labs Labs: Sodium 139 mmol/L (133-145) 07/20/25 03:24 Potassium 4.4 mmol/L (3.3-5.1) 07/20/25 03:24 Chloride 105 mmol/L (98-108) 07/20/25 03:24 Carbon Dioxide 22.2 mmol/L (21.0-32.0) 07/20/25 03:24 Anion Gap 12 (5-15) 07/20/25 03:24 BUN 42 mg/dL (4-19) H 07/20/25 03:24 Creatinine 0.89 mg/dL (0.70-1.20) 07/20/25 03:24 Est GFR (MDRD) Non-Af 69 (>60) 07/20/25 03:24 BUN/Creatinine Ratio 47.3 RATIO (10-20) H 07/20/25 03:24 Glucose 194 mg/dL (70-99) H 07/20/25 03:24 Vancomycin Trough 13.3 ug/mL (5.0-15.0) 07/20/25 10:50 Microbiology Microbiology: Microbiology 07/16/25 04:20 Blood Culture (Wb) - Left Hand Blood Culture - Preliminary No growth in 48 hours. 07/16/25 04:05 Blood Culture (Wb) - Right Hand Blood Culture - Preliminary No growth in 48 hours. 07/16/25 03:44 Urine, Catheterized Urine Culture - Final Culture exhibits no growth. 07/16/25 03:36 Sputum, Induced/Lukens Gram Stain - Final 07/16/25 03:36 Sputum, Induced/Lukens Respiratory Culture - Final Mixed normal respiratory renu. No Streptococcus pneumoniae, beta-hemolytic Streptococcus or Staphylococcus aureus isolated. 07/16/25 10:30 Nasal Secretion MRSA (PCR) - Final 07/16/25 09:20 Mucosa - Nasopharyngeal Respiratory Panel (PCR) - Final 07/16/25 08:25 Urine Catheter - Madrigal Legionella Antigen - Final 07/16/25 08:25 Urine Catheter - Madrigal Streptococcus pneumoniae Antigen (M - Final 07/16/25 03:44 Mucosa - Nose SARS-CoV-2, Influenza & RSV (PCR) - Final Dosing Weight Weight used for dosin kg Estimated Creatinine Clearance Estimated Creatinine Clearance: ~ 46 Goal Trough Goal Trough: 15-20 mcg/mL Pharmacy Plan for Drug Dosing Pharmacy Plan for Drug Dosing: Vancomycin trough = 13.3, increase to 1500 mg Q24H Pharmacy Service will continue to monitor and adjust dosing as required. Follow-Up Labs Follow-Up Labs: Trough: Vancomycin Date/Time Labs Ordered Labs to be done on [date and time ordered]: 07/22/25 @ 0296
[2025-07-20] MEDS: fentaNYL drip 100 ML 20 MCG CONT INF ×3 (12:03→22:11)
[2025-07-20] MEDS: Dexmedetomidine 1,000 mcg in 0.9% NS 240 mL 19.1 MCG CONT INF (12:12)
[2025-07-20] MEDS: Acetaminophen 650 MG/20 ML UDC GT (13:27)
[2025-07-20] MEDS: Vital AF 1.2 Cal Liquid 1,000 ML 45 ML GT (13:36)
[2025-07-20] MEDS: 0.9% Normal Saline (250mL Bag) 250 ML 15 ML IV (21:03)
[2025-07-21] VITALS (50 sets, daily range): BP systolic 110–209; BP diastolic 48–99; PULSE 60–136; RESP 11–36; TEMP 36.4–38.7; O2SAT 84–100; BMI 19.5
[2025-07-21] MEDS: Dexmedetomidine 1,000 mcg in 0.9% NS 240 mL 19.1 MCG CONT INF (01:32)
[2025-07-21] MEDS: 0.9% Saline Lock 10 ML Syringe IV ×8 (03:23→21:13)
[2025-07-21] MEDS: fentaNYL drip 100 ML 20 MCG CONT INF (03:23)
[2025-07-21] MEDS: CHLORHEXIDINE GLUC 2% CLOTH 1 EACH TOWELETTE TOPICAL (03:24)
[2025-07-21 03:36] LABS: Hematocrit 32.5 % (37-47); Hemoglobin 10.6 g/dL (12.0-15.0); Immature Granulocytes Count 0.210 X10^3/uL (0.0-0.0); Mean Corp Hgb Conc 32.6 g/dL (32-36); Mean Corpuscular Volume 87.8 fL (81-99); Mean Platelet Vol. 9.5 fl (6.2-12.0); NRBC Flagged by Analyzer 0 % (0-5); Platelet Count 389 K/mm3 (150-450); RBC Distribution Width CV 15.3 % (11.6-14.6); RBC Distribution Width SD 48.8 fl (35.1-43.9); Red Blood Count 3.70 M/mm3 (4.2-5.4); White Blood Count 11.5 K/mm3 (4.4-11.0)
[2025-07-21 03:54] LABS: Anion Gap 14 (5-15); BUN 39 mg/dL (4-19); BUN/Creat Ratio 47.6 RATIO (10-20); Calcium,Total 8.6 mg/dL (7.6-11.0); Carbon Dioxide 23.5 mmol/L (21.0-32.0); Chloride 104 mmol/L (98-108); Estimated Creatinine Clearance 50.05 ml/min (50-250); Glucose 167 mg/dL (70-99); Potassium 3.9 mmol/L (3.3-5.1)
[2025-07-21] MEDS: Acetaminophen 650 MG/20 ML UDC GT (04:17)
[2025-07-21] MEDS: Piperacil/Tazobactam 3.375 GM in 0.9% Normal Saline (50mL MB+) 50 ML IV ×3 (05:35→22:44)
[2025-07-21] MEDS: Dorzolamide 2% 10ml Bottle 1 DRP OPHTHALMIC ×3 (05:36→22:45)
[2025-07-21] MEDS: TITRATION PARAMETER CHANGE 1 EACH IV (06:15)
--- NOTE | 2025-07-21 07:34 | PCM.PN.INT ---
Assessment & Plan Assessment/Plan (1) Acute respiratory failure with hypoxia and hypercapnia: PLAN: Plan RECOMMENDATIONS: 1. Proceed with a trial of extubation this morning. 2. Once extubated, wean supplemental oxygen as tolerated. 3. Perform bedside swallow evaluation with dietary advancement as tolerated. 4. Continue antibiotics to complete 7 days of therapy. (Completion will occur tomorrow) 5. Continue bronchodilators and steroids. 6. Diuresis as tolerated by hemodynamics and renal function. 7. Continue appropriate DVT prophylaxis. 8. Encourage incentive spirometer use and mobilize patient as tolerated. IMPRESSIONS: 1. Acute respiratory failure with hypoxemia and hypercapnia Most likely multifactorial in etiology. The patient has a known history of COPD and a longstanding tobacco abuse history, but presented to the emergency department profoundly hypertensive with what I suspect is a component of flash pulmonary edema. The patient was ultimately intubated in the emergency department. With supportive care, including antimicrobials, steroids and diuretics, the patient has improved clinically. The patient passed her spontaneous breathing trial this morning, and will therefore be extubated. Once extubated, recommend weaning supplemental oxygen as tolerated. Perform bedside swallow evaluation with dietary advancement as tolerated. If needed, noninvasive positive pressure ventilatory support can be utilized if the patient decompensates after extubation. 2. History of coronary artery disease status post PCI/history of hypertrophic cardiomyopathy/valvular heart disease Continue diuretics as tolerated by hemodynamics and renal function. 3. Chronic tobacco dependency/depression/glaucoma/hyperlipidemia Complicates care, management, recovery and prognosis. Continue supportive measures as noted above. PT/OT to work with the patient. Bedside swallow evaluation to be completed prior to advancement of diet. TIME: 35 minutes of critical care time, independent of procedures, was spent addressing the patient's acute respiratory failure with hypoxemia and hypercapnia, review of all data and collaboration with the care team. Subjective Subjective The patient was seen and examined at the bedside this morning. Events from the last 24 hours have been reviewed. The patient currently has a fever, but remains otherwise hemodynamically stable on assist-control mode of mechanical ventilation with an FiO2 requirement of 25% and PEEP of 5. The patient failed her spontaneous awakening/breathing trials over the weekend. White blood cell count this morning was noted to be 11,000 with a hemoglobin of 10.6 g/dL and normal platelet count. Creatinine is within normal limits. The patient has been tolerant of tube feeding. Following my initial evaluation of the patient, she was able to complete a spontaneous awakening trial, which was then followed by a complete spontaneous breathing trial. The patient was subsequently extubated. Objective Data Objective Data The patient's most recent lab work, culture data and imaging studies have all been personally reviewed. Surface echocardiogram demonstrated mild concentric LVH with an ejection fraction of 55% and stage I diastolic dysfunction. Sputum, blood and urine cultures have not demonstrated any growth to date. Vital Signs: Vital Signs Temp Pulse Resp BP Pulse Ox O2 Del Method O2 Flow Rate 1101.6 F H 70 20 H 159/63 H 96 Mechanical Ventilator 94 07/21/25 07:00 07/21/25 07:00 07/21/25 07:00 07/21/25 07:00 07/21/25 07:00 07/21/25 07:00 07/17/25 01:00 FiO2 25 07/21/25 07:00 Oxygen Flow Rate (L/min) 94 Oxygen Delivery Method Mechanical Ventilator Weight: 114 lb 6.719 oz Body Mass Index (BMI) 19.5 Intake & Output: Intake and Output for Last 24 Hours 07/19/25 07/20/25 07/21/25 23:59 23:59 23:59 Intake Total 2999.69 / 3036.09 2358.52 / 2467.62 496.23 / 496.23 Output Total 2100 / 2100 2475 / 2475 400 / 400 Balance 899.69 / 936.09 -116.48 / -7.38 96.23 / 96.23 Lab / Micro Data Attestation: I reviewed the patient's lab results. 07/21/25 03:30 07/21/25 03:30 Labs: Laboratory Results - last 24 hr 07/20/25 10:50: Vancomycin Trough 13.3 07/20/25 11:59: POC Glucose 170 H 07/20/25 18:09: POC Glucose 179 H 07/20/25 23:47: POC Glucose 159 H 07/21/25 03:30: WBC 11.5 H, RBC 3.70 L, Hgb 10.6 L, Hct 32.5 L, MCV 87.8, MCH 28.6, MCHC 32.6, RDW Std Deviation 48.8 H, RDW Coeff of Shivam 15.3 H, Plt Count 389, MPV 9.5, Immature Gran % (Auto) 1.800 H, Neut % (Auto) 83.2 H, Lymph % (Auto) 8.8 L, [place] % (Auto) 5.8, Eos % (Auto) 0.1, Baso % (Auto) 0.3, Absolute Neuts (auto) 9.5 H, Absolute Lymphs (auto) 1.01, Nucleated RBC % 0, Sodium 141, Potassium 3.9, Chloride 104, Carbon Dioxide 23.5, Anion Gap 14, BUN 39 H, Creatinine 0.83, Estim Creat Clear Calc 50.05, Est GFR (MDRD) Non-Af 76, BUN/Creatinine Ratio 47.6 H, Glucose 167 H, Calcium 8.6 07/21/25 05:34: POC Glucose 161 H Micro: Microbiology 07/16/25 04:20 Blood Culture (Wb) - Left Hand Blood Culture - Preliminary No growth in 48 hours. 07/16/25 04:05 Blood Culture (Wb) - Right Hand Blood Culture - Preliminary No growth in 48 hours. 07/16/25 03:44 Urine, Catheterized Urine Culture - Final Culture exhibits no growth. 07/16/25 03:36 Sputum, Induced/Lukens Gram Stain - Final 07/16/25 03:36 Sputum, Induced/Lukens Respiratory Culture - Final Mixed normal respiratory renu. No Streptococcus pneumoniae, beta-hemolytic Streptococcus or Staphylococcus aureus isolated. 07/16/25 10:30 Nasal Secretion MRSA (PCR) - Final 07/16/25 09:20 Mucosa - Nasopharyngeal Respiratory Panel (PCR) - Final 07/16/25 08:25 Urine Catheter - Madrigal Legionella Antigen - Final 07/16/25 08:25 Urine Catheter - Madrigal Streptococcus pneumoniae Antigen (M - Final 07/16/25 03:44 Mucosa - Nose SARS-CoV-2, Influenza & RSV (PCR) - Final ABG Data ABG results: ABG 07/16/25 09:42 Specimen Type ART Sample Site L Radial pH 7.49 H Bicarbonate Actual 29.1 H Total CO2 30 Base Excess 6 H O2 Saturation 98 O2 % 50.0 ABG pCO2 38.6 ABG pO2 96 Steve Test N/A Respiration Rate 20 O2 Delivery Device Adult Vent Vent Mode AC Tidal Volume 400.0 POC PEEP 5 Radiography Diagnostic Testing: Radiology Impression Echocardiogram 07/16/25 06:31 Interpretation Summary Mild concentric left ventricular hypertrophy. Inferior hypokinesis. Estimated LVEF 55%. Stage I diastolic dysfunction. Moderate posterior mitral valve annular calcification. Calcified chord. Mild mitral valve regurgitation. Mild tricuspid valve insufficiency. Mildly calcified aortic valve leaflets. Aortic valve sclerosis without stenosis. Mild (1+) pulmonic valve insufficiency. Ordering Physician: Clarence Zuniga Performed By: Jake Miguel RCS Chest X-Ray 07/16/25 09:05 IMPRESSION: Tubes and lines in position. There interstitial infiltrates in the perihilar region bilaterally and in the left upper lung. Reading Location: [facility] Chest X-Ray 07/17/25 05:10 IMPRESSION: Tubes and lines in position. There are perihilar infiltrates in the right and left, improved. Reading Location: [facility] Physical Exam Const Constitutional Narrative: The patient remains intubated and mechanically ventilated. Currently tolerating spontaneous mode of mechanical ventilation. General Appearance: frail HEENT normocephalic and head/scalp atraumatic Mouth: endotracheal tube in place and OG tube in place Eyes EOMs intact bilaterally, conjunctivae normal and no scleral icterus Neck supple General: trachea midline Chest Chest Narrative: Increased AP diameter. Resp Auscultation: diminished lung sounds; Negative for rales, rhonchi or wheezes Cardio regular rate and regular rhythm GI normal to inspection, nondistended, normoactive bowel sounds Extremity no clubbing, cyanosis or edema Skin no rashes or lesions noted Neuro Neuro Narrative: Alert and able to follow simple commands. Charges/Coding Procedures Hospitalists Procedures: [id number] Critical Care 1st Hr
[2025-07-21] MEDS: Chlorhexidine 15 ML PO (07:42)
[2025-07-21] MEDS: BRIMONIDINE 0.2% 5ML BOTTLE 1 DRP OPHTHALMIC (07:42)
--- NOTE | 2025-07-21 09:23 | CASEMGMT ---
Per ICU rounds, pt is undergoing another SBT, and the insurance solicitor requests no family to come in at this time. TC to pt's friend, Vita (pt's does not have a phone to call), and notified. The insurance solicitor also inquires if the patient sees a [facility] [facility] as an outpatient. Vita declines and states that the patient only sees the [employer] through [facility].
--- NOTE | 2025-07-21 09:45 | NURSING ---
Dr. Valle at bedside, order to extubate, with respiratory therapy, pt extubated at 0915, placed on 2L NC, tolerated well.
[2025-07-21] MEDS: Pantoprazole Sodium 40 MG in 0.9% Normal Saline (100mL MB+) 100 ML 330 MG IV (09:58)
[2025-07-21] MEDS: Insulin Glargine-YFGN 100 UNIT/ML Pen 10 UNIT SC (10:21)
--- NOTE | 2025-07-21 14:06 | PN_ITS ---
Subjective Subjective Patient seen and examined this morning. She was extubated this morning. She was on 2 L of oxygen. Patient was very tearful during my review. She denied being in pain or feeling short of breath but would not or could not tell me exactly was wrong with her that she was tearful. Unable to do review of systems due to her being tearful. SHe is on 2L of oxygen. Objective Data Objective Data Vital Signs: Vital Signs Temp Pulse Resp BP Pulse Ox O2 Del Method O2 Flow Rate 100.9 F H 88 15 170/69 H 100 Nasal Cannula 2 07/21/25 11:00 07/21/25 14:00 07/21/25 14:00 07/21/25 14:00 07/21/25 14:00 07/21/25 14:00 07/21/25 14:00 FiO2 35 07/21/25 08:00 Oxygen Flow Rate (L/min) 2 Oxygen Delivery Method Nasal Cannula Weight: 114 lb 6.719 oz Body Mass Index (BMI) 19.5 Intake & Output: Intake and Output for Last 24 Hours 07/19/25 07/20/25 07/21/25 23:59 23:59 23:59 Intake Total 2999.69 / 3036.09 2358.52 / 2467.62 1789.96 / 1789.96 Output Total 2100 / 2100 2475 / 2475 1750 / 1750 Balance 899.69 / 936.09 -116.48 / -7.38 39.96 / 39.96 Lab / Micro Data 07/21/25 03:30 07/21/25 03:30 Labs: Laboratory Results - last 24 hr 07/20/25 18:09: POC Glucose 179 H 07/20/25 23:47: POC Glucose 159 H 07/21/25 03:30: WBC 11.5 H, RBC 3.70 L, Hgb 10.6 L, Hct 32.5 L, MCV 87.8, MCH 28.6, MCHC 32.6, RDW Std Deviation 48.8 H, RDW Coeff of Shivam 15.3 H, Plt Count 389, MPV 9.5, Immature Gran % (Auto) 1.800 H, Neut % (Auto) 83.2 H, Lymph % (Auto) 8.8 L, [place] % (Auto) 5.8, Eos % (Auto) 0.1, Baso % (Auto) 0.3, Absolute Neuts (auto) 9.5 H, Absolute Lymphs (auto) 1.01, Nucleated RBC % 0, Sodium 141, Potassium 3.9, Chloride 104, Carbon Dioxide 23.5, Anion Gap 14, BUN 39 H, Creatinine 0.83, Estim Creat Clear Calc 50.05, Est GFR (MDRD) Non-Af 76, B UN/Creatinine Ratio 47.6 H, Glucose 167 H, Calcium 8.6 07/21/25 05:34: POC Glucose 161 H 07/21/25 11:55: POC Glucose 126 H Micro: Microbiology 07/16/25 04:20 Blood Culture (Wb) - Left Hand Blood Culture - Final No growth in 5 days. 07/16/25 04:05 Blood Culture (Wb) - Right Hand Blood Culture - Final No growth in 5 days. 07/16/25 03:44 Urine, Catheterized Urine Culture - Final Culture exhibits no growth. 07/16/25 03:36 Sputum, Induced/Lukens Gram Stain - Final 07/16/25 03:36 Sputum, Induced/Lukens Respiratory Culture - Final Mixed normal respiratory renu. No Streptococcus pneumoniae, beta-hemolytic Streptococcus or Staphylococcus aureus isolated. 07/16/25 10:30 Nasal Secretion MRSA (PCR) - Final 07/16/25 09:20 Mucosa - Nasopharyngeal Respiratory Panel (PCR) - Final 07/16/25 08:25 Urine Catheter - Madrigal Legionella Antigen - Final 07/16/25 08:25 Urine Catheter - Madrigal Streptococcus pneumoniae Antigen (M - Final 07/16/25 03:44 Mucosa - Nose SARS-CoV-2, Influenza & RSV (PCR) - Final Physical Exam Const alert Constitutional Narrative: tearful, in mild distress HEENT normocephalic, head/scalp atraumatic and oropharynx normal Eyes EOMs intact bilaterally Neck supple Lymph Lymphatic: no lymphedema noted Resp Resp Narrative: mildly diminished breath sounds bibasally, no wheezes or crackles. On 2L of oxygen by nasal canula Cardio regular rate, regular rhythm, S1 normal heart sound, S2 normal heart sound and no murmurs GI normal to inspection, nondistended, normoactive bowel sounds, soft to palpation and non-tender Extremity normal capillary refill General Extremity: no tenderness to palpation of joints or extremities Skin General Skin Exam: no breakdown Neuro no focal motor deficits and no sensory deficits noted Motor Exam: general weakness Psych Psych Narrative: patient very tearful Mood & Affect: anxious Assessment & Plan Assessment/Plan (1) Acute respiratory failure with hypoxia and hypercapnia: (2) Pneumonia: QUALIFIERS: Pneumonia type: due to unspecified organism L aterality: bilateral Lung location: unspecified part of lung Qualified Code(s): J18.9 - Pneumonia, unspecified organism PLAN: Plan #Acute hypoxic respiratory failure * Patient extubated this morning. Currently on 2 L of oxygen. * Thought to be due to acute exacerbation of COPD as well as heart failure and possible pneumonia. On empiric IV ceftriaxone and azithromycin. * Urine for strep and Legionella negative. Respiratory panel negative. * Awaiting swallow evaluation today. Titrate oxygen to maintain saturation above 90%. * On IV Solu-Medrol as well as IV Lasix. * To complete a 7-day course of antibiotics. #Elevated troponin: * 2D echo showed no regional wall motion abnormalities. * 2D echo showed EF of 55% and inferior hypokinesis. * Thought to be due to demand ischemia from hypertension and respiratory failure. No need for further workup now. #Hypertensive emergency: * Blood pressure was markedly elevated at 257/127 on admission and there were concerns of flash pulmonary edema. * IV hydralazine as needed. Resume oral meds once patient passes swallow evaluation. #CAD s/p stents: On sublingual nitroglycerin. 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 Currently stable. #Hyperlipidemia: On statin #Depression: On venlafaxine #History of glaucoma: On brimonidine and dorzolamide eyedrops DVT prophylaxis: Lovenox Charges/Coding Visit Charges Inpatient E&M: 55445 Subs Hosp L2
[2025-07-21] MEDS: Dextrose 5%/0.9% NaCl 1,000 ML 100 ML IV (19:01)
--- NOTE | 2025-07-21 20:59 | PCM.HOSP.N ---
Hospitalist Note Pt sitting up in chair surrounded by family, hyperventilating, anxious, and hypertensive. Extubated from vent this AM. Reports not getting enough air, SBP 153, HR 110s, RR low 30s, p.oximetry 89% and shaky without reliant waveform pleth. I ordered morphine 2mg IV x1 now for air hunger and anxiety; this was given at 193; Briefly effective. 2049-pt states that her hands are tingling; SBP 176, RR 25, p.ox 97%. I ordered haloperidol 2mg IV x1 now as she is NPO and unable to take her scheduled quetiapine 50mg this night. QT measures 0.33
--- NOTE | 2025-07-21 21:00 | CPS ---
IPAP reduced to 10 cmH2O to help reduce pt's hyperventilation.
[2025-07-21] MEDS: NICARdipine 25 MG in 0.9% Normal Saline (250mL Bag) 240 ML 50 MG CONT INF (21:03)
[2025-07-22] VITALS (56 sets, daily range): BP systolic 115–173; BP diastolic 42–115; PULSE 89–129; RESP 12–33; TEMP 36.9–37.7; O2SAT 81–100; BMI 19.1
[2025-07-22] MEDS: NICARdipine 25 MG in 0.9% Normal Saline (250mL Bag) 240 ML 100 MG CONT INF (01:33)
[2025-07-22] MEDS: NICARdipine 25 MG in 0.9% Normal Saline (250mL Bag) 240 ML 50 MG CONT INF ×2 (04:15→09:15)
[2025-07-22 05:05] LABS: Hematocrit 32.9 % (37-47); Hemoglobin 10.7 g/dL (12.0-15.0); Immature Granulocytes Count 0.300 X10^3/uL (0.0-0.0); Mean Corp Hgb Conc 32.5 g/dL (32-36); Mean Corpuscular Volume 88.7 fL (81-99); Mean Platelet Vol. 9.5 fl (6.2-12.0); NRBC Flagged by Analyzer 0 % (0-5); Platelet Count 452 K/mm3 (150-450); RBC Distribution Width CV 15.3 % (11.6-14.6); RBC Distribution Width SD 49.1 fl (35.1-43.9); Red Blood Count 3.71 M/mm3 (4.2-5.4); White Blood Count 11.8 K/mm3 (4.4-11.0)
[2025-07-22 05:13] LABS: Anion Gap 14 (5-15); BUN 30 mg/dL (4-19); BUN/Creat Ratio 39.5 RATIO (10-20); Calcium,Total 8.3 mg/dL (7.6-11.0); Carbon Dioxide 22.3 mmol/L (21.0-32.0); Chloride 106 mmol/L (98-108); Estimated Creatinine Clearance 52.85 ml/min (50-250); Glucose 160 mg/dL (70-99); Potassium 3.2 mmol/L (3.3-5.1)
[2025-07-22] MEDS: Dextrose 5%/0.9% NaCl 1,000 ML 100 ML IV (05:19)
[2025-07-22] MEDS: Piperacil/Tazobactam 3.375 GM in 0.9% Normal Saline (50mL MB+) 50 ML IV ×3 (05:20→20:59)
[2025-07-22] MEDS: Dorzolamide 2% 10ml Bottle 1 DRP OPHTHALMIC ×3 (05:21→21:02)
[2025-07-22] MEDS: BRIMONIDINE 0.2% 5ML BOTTLE 1 DRP OPHTHALMIC (08:02)
--- NOTE | 2025-07-22 08:07 | CASEMGMT ---
Addendum entered by Tomasa Monk 07/22/25 09:29: Nursing has completed Palliative Care Consult order. Per ICU rounds, MBSS today. PT reports pt was unsteady yesterday. RN states pt had an anxiety attack yesterday. CM to continue to follow for safe DC planning. Original Note: Noted that the [employer] resource teacher placed an order for inpt Palliative care consult. [employer] notified of consult.
[2025-07-22] MEDS: 0.9% Saline Lock 10 ML Syringe IV ×4 (08:36→21:32)
[2025-07-22] MEDS: Potassium Chloride 10mEq/100mL 10 MEQ/100 ML IV.SOLN. 100 MEQ IV BOLUS ×4 (08:41→12:32)
--- NOTE | 2025-07-22 08:43 | PN.CC_ITS ---
Assessment & Plan Assessment/Plan (1) Acute respiratory failure with hypoxia and hypercapnia: PLAN: Plan RECOMMENDATIONS: 1. Supplemental oxygen to maintain saturations at or above 90%. 2. Antibiotics to be completed today. 3. Continue scheduled bronchodilators and steroids. 4. Modified barium swallow with possible dietary advancement. 5. Resume antihypertensive regimen once the patient is able to tolerate p.o. intake. 6. Potassium repletion as ordered. 7. Initiate nicotine replacement therapy. 8. Continue ongoing diuresis as tolerated by hemodynamics and renal function. 9. Continue appropriate DVT prophylaxis. Encourage incentive spirometer use and mobilize patient as tolerated. IMPRESSIONS: 1. Acute respiratory failure with hypoxemia and hypercapnia Most likely multifactorial in etiology. The patient has a known history of COPD and a longstanding tobacco abuse history, but presented to the emergency department profoundly hypertensive with what I suspect is a component of flash pulmonary edema. The patient was ultimately intubated in the emergency department. With supportive care, including antimicrobials, steroids and diuretics, the patient improved clinically and was able to be extubated on July 21. We are awaiting modified barium swallow prior to advancement of diet. The patient's blood pressure remains uncontrolled. Therefore, she will remain on nicardipine until her diet is able to be advanced and antihypertensive regimen restarted. Given the patient's longstanding tobacco abuse history, will initiate nicotine replacement therapy today. Continue BiPAP therapy nightly and as needed throughout the day. Continue to wean supplemental oxygen as tolerated. Encourage incentive spirometer use and mobilize patient as tolerated. In light of the patient suspected underlying advanced stage COPD, coupled with her anxiety and air hunger, will obtain palliative care consultation to assist with symptom management. 2. History of coronary artery disease status post PCI/history of hypertrophic cardiomyopathy/valvular heart disease Continue diuretics as tolerated by hemodynamics and renal function. 3. Chronic tobacco dependency/depression/glaucoma/hyperlipidemia Complicates care, management, recovery and prognosis. Continue supportive measures as noted above. PT/OT to work with the patient. Tentative plans for modified barium swallow today prior to advancement of diet. This note was generated with INTTRAation software. It may contain incorrect words, spelling, and punctuation that were not noted in checking the note before signing. Subjective Subjective The patient was seen and examined at the bedside this morning. Events from the last 24 hours have been reviewed. The patient is currently afebrile, hemodynamically stable and maintaining appropriate oxygen saturations on 4 L/min via nasal cannula. The patient was tolerant of BiPAP therapy for a portion of the night. She did become hypertensive last evening and was ultimately placed on nicardipine, pending further speech therapy evaluation today and possible dietary advancement. She did report that she typically smokes 0.5 packs of cigarettes per day. Potassium is low this morning at 3.2. Creatinine remains within normal limits. Objective Data Objective Data The patient's most recent lab work, culture data and imaging studies have all been personally reviewed. Surface echocardiogram demonstrated mild concentric LVH with an ejection fraction of 55% and stage I diastolic dysfunction. Sputum, blood and urine cultures have not demonstrated any growth to date. Vital Signs: Vital Signs Temp Pulse Resp BP Pulse Ox O2 Del Method O2 Flow Rate 98.7 F 105 H 22 H 161/68 H 95 Nasal Cannula 4 07/22/25 04:00 07/22/25 07:00 07/22/25 07:00 07/22/25 07:00 07/22/25 07:00 07/22/25 07:00 07/22/25 07:00 FiO2 91 07/22/25 06:46 Oxygen Flow Rate (L/min) 4 Oxygen Delivery Method Nasal Cannula Weight: 111 lb 12.39 oz Body Mass Index (BMI) 19.1 Intake & Output: Intake and Output for Last 24 Hours 07/20/25 07/21/25 07/22/25 23:59 23:59 23:59 Intake Total 2358.52 / 2467.62 2303.71 / 2322.46 1567.50 / 1567.50 Output Total 2475 / 2475 3050 / 3050 950 / 950 Balance -116.48 / -7.38 -746.29 / -727.54 617.50 / 617.50 Lab / Micro Data Attestation: I reviewed the patient's lab results. 07/22/25 04:45 07/22/25 04:45 Labs: Laboratory Results - last 24 hr 07/21/25 11:55: POC Glucose 126 H 07/21/25 17:06: POC Glucose 49 L 07/21/25 17:33: POC Glucose 202 H 07/21/25 18:24: POC Glucose 52 L 07/21/25 23:19: POC Glucose 82 07/22/25 04:45: WBC 11.8 H, RBC 3.71 L, Hgb 10.7 L, Hct 32.9 L, MCV 88.7, MCH 28.8, MCHC 32.5, RDW Std Deviation 49.1 H, RDW Coeff of Shivam 15.3 H, Plt Count 452 H, MPV 9.5, Immature Gran % (Auto) 2.500 H, Neut % (Auto) 84.7 H, Lymph % (Auto) 8.4 L, [place] % (Auto) 4.1, Eos % (Auto) 0.0, Baso % (Auto) 0.3, Absolute Neuts (auto) 10.0 H, Absolute Lymphs (auto) 1.00, Nucleated RBC % 0, Sodium 142, Potassium 3.2 L, Chloride 106, Carbon Dioxide 22.3, Anion Gap 14, BUN 30 H, Creatinine 0.76, Estim Creat Clear Calc 52.85, Est GFR (MDRD) Non-Af 84, B UN/Creatinine Ratio 39.5 H, Glucose 160 H, Calcium 8.3 07/22/25 05:43: POC Glucose 169 H 07/22/25 06:40: POC Glucose 174 H Micro: Microbiology 07/16/25 04:20 Blood Culture (Wb) - Left Hand Blood Culture - Final No growth in 5 days. 07/16/25 04:05 Blood Culture (Wb) - Right Hand Blood Culture - Final No growth in 5 days. 07/16/25 03:44 Urine, Catheterized Urine Culture - Final Culture exhibits no growth. 07/16/25 03:36 Sputum, Induced/Lukens Gram Stain - Final 07/16/25 03:36 Sputum, Induced/Lukens Respiratory Culture - Final Mixed normal respiratory renu. No Streptococcus pneumoniae, beta-hemolytic Streptococcus or Staphylococcus aureus isolated. 07/16/25 10:30 Nasal Secretion MRSA (PCR) - Final 07/16/25 09:20 Mucosa - Nasopharyngeal Respiratory Panel (PCR) - Final 07/16/25 08:25 Urine Catheter - Madrigal Legionella Antigen - Final 07/16/25 08:25 Urine Catheter - Madrigal Streptococcus pneumoniae Antigen (M - Final 07/16/25 03:44 Mucosa - Nose SARS-CoV-2, Influenza & RSV (PCR) - Final ABG Data ABG results: ABG 07/16/25 09:42 Specimen Type ART Sample Site L Radial pH 7.49 H Bicarbonate Actual 29.1 H Total CO2 30 Base Excess 6 H O2 Saturation 98 O2 % 50.0 ABG pCO2 38.6 ABG pO2 96 Steve Test N/A Respiration Rate 20 O2 Delivery Device Adult Vent Vent Mode AC Tidal Volume 400.0 POC PEEP 5 Radiography Diagnostic Testing: Radiology Impression Echocardiogram 07/16/25 06:31 Interpretation Summary Mild concentric left ventricular hypertrophy. Inferior hypokinesis. Estimated LVEF 55%. Stage I diastolic dysfunction. Moderate posterior mitral valve annular calcification. Calcified chord. Mild mitral valve regurgitation. Mild tricuspid valve insufficiency. Mildly calcified aortic valve leaflets. Aortic valve sclerosis without stenosis. Mild (1+) pulmonic valve insufficiency. Ordering Physician: Clarence Zuniga Performed By: Jake Miguel [facility] Chest X-Ray 07/16/25 09:05 IMPRESSION: Tubes and lines in position. There interstitial infiltrates in the perihilar region bilaterally and in the left upper lung. Reading Location: [facility] Chest X-Ray 07/17/25 05:10 IMPRESSION: Tubes and lines in position. There are perihilar infiltrates in the right and left, improved. Reading Location: [facility] Physical Exam Const alert, oriented x3 and no apparent distress General Appearance: cooperative, ill appearing Positive for chronically and frail HEENT normocephalic and head/scalp atraumatic Eyes EOMs intact bilaterally, conjunctivae normal and no scleral icterus Neck supple General: trachea midline Chest Chest Narrative: Increased AP diameter. Resp Auscultation: diminished lung sounds; Negative for rales, rhonchi or wheezes Cardio regular rate and regular rhythm GI normal to inspection, nondistended, normoactive bowel sounds Extremity no clubbing, cyanosis or edema Skin no rashes or lesions noted Neuro CN's II-XII intact bilaterally, moves all extremities and no focal motor deficits Psych cooperative and affect normal Charges/Coding Visit Charges Inpatient E&M: 14391 Subs Hosp L3
[2025-07-22] MEDS: Nicotine (PBKC) 14 MG Patch TD (08:44)
[2025-07-22] MEDS: CHLORHEXIDINE GLUC 2% CLOTH 1 EACH TOWELETTE TOPICAL (08:46)
--- NOTE | 2025-07-22 11:12 | PN_ITS ---
Subjective Subjective Patient seen and examined. She feels better today and had no active complaints. She is on 4L of oxygen. She is tachycardic and tachypneic. She denied any fever, chills, cough, chest pain, palpitations, dizziness, nausea, vomiting or any other symptoms. Review of systems is otherwise negative. Objective Data Objective Data Vital Signs: Vital Signs Temp Pulse Resp BP Pulse Ox O2 Del Method O2 Flow Rate 98.6 F 115 H 21 H 126/73 H 95 Nasal Cannula 4 07/22/25 09:30 07/22/25 09:30 07/22/25 09:30 07/22/25 09:30 07/22/25 09:30 07/22/25 09:30 07/22/25 09:30 FiO2 91 07/22/25 06:46 Oxygen Flow Rate (L/min) 4 Oxygen Delivery Method Nasal Cannula Weight: 111 lb 12.39 oz Body Mass Index (BMI) 19.1 Intake & Output: Intake and Output for Last 24 Hours 07/20/25 07/21/25 07/22/25 23:59 23:59 23:59 Intake Total 2358.52 / 2467.62 2303.71 / 2322.46 1973.75 / 1973.75 Output Total 2475 / 2475 3050 / 3050 3150 / 3150 Balance -116.48 / -7.38 -746.29 / -727.54 -1176.25 / -1176.25 Lab / Micro Data 07/22/25 04:45 07/22/25 04:45 Labs: Laboratory Results - last 24 hr 07/21/25 11:55: POC Glucose 126 H 07/21/25 17:06: POC Glucose 49 L 07/21/25 17:33: POC Glucose 202 H 07/21/25 18:24: POC Glucose 52 L 07/21/25 23:19: POC Glucose 82 07/22/25 04:45: WBC 11.8 H, RBC 3.71 L, Hgb 10.7 L, Hct 32.9 L, MCV 88.7, MCH 28.8, MCHC 32.5, RDW Std Deviation 49.1 H, RDW Coeff of Shivam 15.3 H, Plt Count 452 H, MPV 9.5, Immature Gran % (Auto) 2.500 H, Neut % (Auto) 84.7 H, Lymph % (Auto) 8.4 L, [place] % (Auto) 4.1, Eos % (Auto) 0.0, Baso % (Auto) 0.3, Absolute Neuts (auto) 10.0 H, Absolute Lymphs (auto) 1.00, Nucleated RBC % 0, Sodium 142, Potassium 3.2 L, Chloride 106, Carbon Dioxide 22.3, Anion Gap 14, BUN 30 H, Creatinine 0.76, Estim Creat Clear Calc 52.85, Est GFR (MDRD) Non-Af 84, B UN/Creatinine Ratio 39.5 H, Glucose 160 H, Calcium 8.3 07/22/25 05:43: POC Glucose 169 H 07/22/25 06:40: POC Glucose 174 H Micro: Microbiology 07/16/25 04:20 Blood Culture (Wb) - Left Hand Blood Culture - Final No growth in 5 days. 07/16/25 04:05 Blood Culture (Wb) - Right Hand Blood Culture - Final No growth in 5 days. 07/16/25 03:44 Urine, Catheterized Urine Culture - Final Culture exhibits no growth. 07/16/25 03:36 Sputum, Induced/Lukens Gram Stain - Final 07/16/25 03:36 Sputum, Induced/Lukens Respiratory Culture - Final Mixed normal respiratory renu. No Streptococcus pneumoniae, beta-hemolytic Streptococcus or Staphylococcus aureus isolated. 07/16/25 10:30 Nasal Secretion MRSA (PCR) - Final 07/16/25 09:20 Mucosa - Nasopharyngeal Respiratory Panel (PCR) - Final 07/16/25 08:25 Urine Catheter - Madrigal Legionella Antigen - Final 07/16/25 08:25 Urine Catheter - Madrigal Streptococcus pneumoniae Antigen (M - Final 07/16/25 03:44 Mucosa - Nose SARS-CoV-2, Influenza & RSV (PCR) - Final Physical Exam Const alert and no apparent distress HEENT normocephalic, head/scalp atraumatic, moist oral mucous membranes and oropharynx normal Eyes PERRL, EOMs intact bilaterally and conjunctivae normal Neck no lymphadenopathy and supple Lymph Lymphatic: no lymphedema noted Resp Resp Narrative: mildly diminished breath sounds bibasally, no wheezes or crackles. On 4 L of oxygen by nasal canula Cardio regular rhythm, S1 normal heart sound, S2 normal heart sound and no murmurs Cardio Narrative: tachycardic GI normal to inspection, nondistended, normoactive bowel sounds, soft to palpation, non-tender and non-distended Extremity normal to inspection, full ROM, normal capillary refill and no clubbing, cyanosis or edema General Extremity: no tenderness to palpation of joints or extremities Skin General Skin Exam: no breakdown Neuro moves all extremities, no focal motor deficits and no sensory deficits noted Sensorium / Orientation: awake and alert Motor Exam: general weakness Psych thought process normal Appearance: appropriate Assessment & Plan Assessment/Plan (1) Acute respiratory failure with hypoxia and hypercapnia: (2) Pneumonia: QUALIFIERS: Pneumonia type: due to unspecified organism L aterality: bilateral Lung location: unspecified part of lung Qualified Code(s): J18.9 - Pneumonia, unspecified organism PLAN: Plan #Acute hypoxic respiratory failure * Patient extubated on 07/21/2025. Currently on 2 L of oxygen. * Thought to be due to acute exacerbation of COPD as well as heart failure and possible pneumonia. On empiric IV ceftriaxone and azithromycin. * Urine for strep and Legionella negative. Respiratory panel negative. * Failed swallow eval yesterday. Titrate oxygen to maintain saturation above 90%. * On IV Solu-Medrol as well as IV Lasix. * To complete a 7-day course of antibiotics. * To have repeat swallow eval today. #Elevated troponin: * 2D echo showed no regional wall motion abnormalities. * 2D echo showed EF of 55% and inferior hypokinesis. * Thought to be due to demand ischemia from hypertension and respiratory failure. No need for further workup now. #Hypertensive emergency: * Blood pressure was markedly elevated at 257/127 on admission and there were concerns of flash pulmonary edema. * IV hydralazine as needed. Resume oral meds once patient passes swallow evaluation. * she had to be placed on nicardipine drip yesterday as BP was markedly elevated. To titrate and wean off nicardipine today as tolerated and after repeat swallow eval, will check to see if she can resume her oral meds. #CAD s/p stents: On sublingual nitroglycerin. 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 Currently stable. #Hyperlipidemia: On statin #Depression: On venlafaxine #History of glaucoma: On brimonidine and dorzolamide eyedrops DVT prophylaxis: Lovenox Charges/Coding Visit Charges Inpatient E&M: 74183 Subs Hosp L2
--- NOTE | 2025-07-22 11:19 | ST.MBS ---
Modified Barium Swallow Patient Information Study Date: 07/22/25 Study Time: 10:30 Direct Billable Minutes: 120 Total Minutes procedure & reportin Diagnosis: PNA J69.0 Referring Physician: Renee Encarnacion Reason for Referral: Assess swallow function, assess risk for aspiration, and determine recommendations for least restrictive diet textures and compensatory strategies to improve swallowing safety. Medical History: The patient presented to [facility] ED 07/16/2025 w/ SOB, in respiratory distress upon arrival. She was placed on BiPAP, had hypertensive emergency w/ acute AE of CHF w/ clinical evidence of AD of COPD. Pt was intubated in the ED and transferred to ICU. Pt extubated 07/21/2025 at 9:15. Around 11am, RN completed dysphagia screener and pt failed. ST consulted. BSE 07/21/2025 recommended NPO w/ pt ok for sips/chips after oral care and w/ supervision w/ plan for MBSS prior to diet advancement due to coughing w/ liquids and regurgitation of applesauce. Medical History 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 Non-rheumatic mitral regurgitation Depression Anxiety Pulmonary hypertension Essential hypertension Pure hypercholesterolemia Atherosclerotic heart disease of [place] coronary artery without angina pectoris Current Diet Ordered: NPO Dentition: Natural Teeth, Decay and Missing Teeth Mental Status: Impaired (confusion) Respiratory Status: Oxygenating on Room Air Penetration-Aspiration Scale Penetration-Aspiration Scale: OBJECTIVE ASSESSMENT OF SWALLOW FUNCTION (QUANTITATIVE ? PER TRIAL): PENETRATION / ASPIRATION SCALE (ABERNATHY): 1 = does not enter airway 2 = enters airway/above vocal folds/ejected 3 = enters airway/above vocal folds/not ejected 4 = enters airway/contacts vocal folds/ejected 5 = enters airway/contacts vocal folds/not ejected 6 = enters airway/below vocal folds/ejected 7 = enters airway/below vocal folds/not ejected despite effort 8 = enters airway/below vocal folds/no effort VIDEOFLOROSCOPIC SCALE SCORE (ABERNATHY): Grade I = aspiration of material that has penetrated into the laryngeal vestibule, intact cough reflex Grade II = aspiration < 10 % of the bolus, intact cough reflex Grade III = aspiration of < 10 % of the bolus, reduced cough reflex or aspiration of > 10 % of the bolus, intact cough reflex Grade IV = aspiration of > 10 % of the bolus, reduced cough reflex Penetration-Aspiration Scale Score Thin Liquid via teaspoon: Result: 2= enter airway/above vocal folds/ejected Thin Liquid via teaspoon Trial 2: Result: 1= does not enter airway Thin Liquid via small single sip: cup: Result: 2= enter airway/above vocal folds/ejected [place] Thick Liquid via large single sip: cup: Result: 1= does not enter airway Pudding via teaspoon: Result: 1= does not enter airway Comment: Esophageal screen - Mild retention in the lower esophagus. Mild retention in the middle esophagus. Thin Liquid via single sip: straw: Result: 2= enter airway/above vocal folds/ejected Comment: Esophageal screen - Brief retention of barium w/ retrograde flow in the lower esophagus w/ eventual clearance through the LES. 1/2 Cookie w/ Barium Pudding Coating: Result: 1= does not enter airway (PAS score reflects swallow of very small amount of barium pudding coating. Pt expectorated entire bite of cookie due to inability for A-P transport of the bolus and no oral clearance.) Thin Liquid via single sip: straw Trial 2: Result: 2= enter airway/above vocal folds/ejected Thin Liquid via sequential sips:straw: Result: 2= enter airway/above vocal folds/ejected Oral Phase Labial Seal: Interlabial escape, no progression to anterior lip Tongue Control During Bolus Hold: Posterior escape of greater than half of bolus Bolus Preparation/Mastication: Disorganized chewing/mashing with solid pieces of bolus unchewed Bolus Transport/Lingual Motion: Repetitive/disorganized tongue motion Oral Residue: Minimal to no clearance (Cookie) Pharyngeal Phase Initiation of Pharyngeal Swallow: Bolus head in pyriforms Soft Palate Elevation: Trace column of contrast/air between soft palate and pharyngeal wall Laryngeal Elevation: Comp. Superior move thyroid cart w/comp. apprx arytenoid cart-epig pet Anterior Hyoid Excursion: Partial anterior movement Epiglottic Movement: Complete inversion Laryngeal Vestibule Closure at Height of Swallow: Incomplete; narrow column of air/contrast in laryngeal vestibule Pharyngeal Stripping Wave: Present - complete Pharyngoesophageal Segment Opening: Complete distension and complete duration; no obstruction of flow Tongue Base Retraction: Trace column of contrast between tongue base & post. pharyngeal wall Pharyngeal Residue: Trace residue within or on pharyngeal structures Esophageal Phase Esophageal Clearance: Esophageal retention w/ retrograde flow below pharyngoesophageal seg. Diagnosis/Impression Diagnosis: Mod oral dysphagia R13.10,Mild pharyngeal R13.13,Esophageal [id number] MBS Impressions: The oral phase is primarily marked by... -Decreased bolus control w/ posterior loss of >1/2 of the bolus to the pharynx prior to swallow onset. -Prolonged and disorganized mastication of cookie. -No A-P transport of cookie w/ no oral clearance and expectoration of cookie. The pharyngeal phase is primarily marked by... -Mildly delayed swallow onset. -Decreased anterior hyoid excursion w/ laryngeal penetration of liquids; however, barium completely ejected from the laryngeal vestibule. No aspiration. The esophageal phase is primarily marked by... -Mild retention of pudding in the lower esophagus. Mild retention of pudding in the middle esophagus. Pudding mostly cleared w/ thin liquid wash. -CP bar that did not appear to impact bolus clearance through the UES. Recommendations Diet: Puree Textures and Thin Liquids Comment: Medications crushed in applesauce w/ liquid wash after each bite Compensatory Strategies: Small Bites, Small Sips, Slow Rate, Alternate bites/solids and sips/liquids (1:1 ratio) and Sitting upright (During and 60min after meal) Supervision: 1:1 Direct Supervision (For meals, ok for liquids at bedside if sitting upright) Recommend Repeat Modified Barium Swallow: TBD Need for Skilled Speech Therapy Services: Yes Comment: -Train the patient in use of strategies to decrease risk for aspiration. -Ongoing assessment of diet tolerance of recommended textures. Trial soft solids in upcoming sessions if good diet tolerance. -Train the patient in an oral motor exercise program to improve lingual strength and coordination for improved bolus control and A-P transport. Recommended Referrals: GI Consult (Initially, [employer] recommended pt for OP GI consult; however, per Vikas CARRILLO, the patient had regurgitation of mashed potatoes w/ medications at lunchtime after this MBSS. The pt only consumed liquids afterwards. Will recommend inpatient GI consult.) Education Completed: 1. Described result of evaluation., 2. Pt understands evaluation & agrees with goals and treatment plan. and 7. Pt requires further education on strategies & risks. Comment: Reviewed results and recommendations of MBSS w/ RN's Dayana. Status Active ST Patient: Active Contact Information [facility] Speech Therapy:: Flavia Ren M.A. [facility] Speech-Language Pathologist [address] [address] [email or web address] [phone]
[2025-07-22] MEDS: Senna/Docusate Sodium 1 Tablet 2 TABLET PO ×2 (11:23→21:02)
--- NOTE | 2025-07-22 12:15 | CON.PCM.PA_ITS ---
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 Non-rheumatic mitral regurgitation Depression Anxiety Pulmonary hypertension Essential hypertension Pure hypercholesterolemia Atherosclerotic heart disease of [place] coronary artery without angina pectoris Home Medications ?Medication ?Instructions ?Recorded ?Last Taken ?Type aspirin 81 mg tablet,delayed 81 mg PO DAILY heart 06/23 04/10 Unknown History release (Adult Low Dose Aspirin) atorvastatin 40 mg tablet 40 mg PO QHS cholestrol 06/23 04/10 Unknown History nitroglycerin 0.4 mg sublingual 0.4 mg sublingual Q5-1 5M PRN chest 07/08/19 Unknown History tablet pain oxybutynin chloride 10 mg 10 mg PO DAILY overactive bl add 07/08/19 Unknown History tablet,extended release 24 hr albuterol sulfate 90 mcg/actuation 2 puff inhalation Q 4H PRN 12/23/20 Unknown Rx aerosol inhaler (Ventolin HFA) shortness of breath or wheezing #8.5 grams brimonidine 0.2 % eye drops ml ophthalmic (eye) eyes 0 06/16/21 Unknown History dorzolamide 2 % eye drops 1 drp ophthalmic (eye) TID e yes 06/16/21 Unknown History lisinopril 20 mg tablet 20 mg PO DAILY #90 tabs 05/24 03/12 Unknown Rx clopidogrel 75 mg tablet 75 mg PO DAILY heart 5 Unknown History furosemide 40 mg tablet 40 mg PO DAILY heart 5 Unknown History spironolactone 25 mg tablet 25 mg PO DAILY diuresis Unknown History OXYGEN - Supplemental ([facility] COPD 07/18/25 Unknown Histo ry INFORMATIONAL USE ONLY) Allergy/AdvReac Type Severity Reaction Status Date / Time No Known Allergies Allergy Unverified 06/16/21 14:41 Family History Mother Diabetes Surgical History History of coronary artery stent placement (01/02/17) History of hysterectomy Social History Smoking Status: Current every day smoker tobacco type: cigarettes Tobacco: How many years used: 46 second hand exposure: Yes alcohol intake: never substance use type: does not use caffeine: Yes Type: coffee ROS Constitutional Constitutional: Reports systems reviewed and no addt'l complaints, except as documented and as per HPI Eyes Eyes: Reports systems reviewed and no addt'l complaints, except as documented ENT HEENT: Reports systems reviewed and no addt'l complaints, except as documented Cardiovascular Cardiovascular: Reports dyspnea, dyspnea at rest, dyspnea on exertion, easily tiring during activity and fatigue Respiratory/Chest Respiratory/Chest: Reports dyspnea, dyspnea on exertion, shortness of breath at rest and shortness of breath with exertion Gastrointestinal Gastrointestinal: Reports systems reviewed and no addt'l complaints, except as documented Genitourinary Genitourinary: Reports systems reviewed and no addt'l complaints, except as documented Musculoskeletal Musculoskeletal: Reports back pain Integumentary Integumentary: Reports systems reviewed and no addt'l complaints, except as documented Neurologic Neurologic: Reports systems reviewed and no addt'l complaints, except as documented Psychiatric Psychiatric: Reports anxiety Endocrine Endocrinology: Reports systems reviewed and no addt'l complaints, except as documented Hematologic/Lymphatic Hematologic/Lymphatic: Reports systems reviewed and no addt'l complaints, except as documented Allergic/Immunologic Allergic/Immunologic: Reports systems reviewed and no addt'l complaints, except as documented Physical Exam Const alert and oriented x3 General Appearance: cooperative HEENT normocephalic Mouth: oral and palatal mucosa normal Resp Effort and Inspection: tachypneic Auscultation: diminished lung sounds Cardio regular rhythm, S1 normal heart sound and S2 normal heart sound Cardio Narrative: Patient was tachycardic during the entire assessment Rate: tachycardic GI normal to inspection, nondistended, normoactive bowel sounds, non-tender and non-distended GI Narrative: no guarding with palpation Skin no rashes or lesions noted and no jaundice Neuro oriented x3, CN's II-XII intact bilaterally and no focal motor deficits Sensorium / Orientation: alert Speech: speech normal Psych affect normal Psych Narrative: appropriate, makes good eye contact. Patient has had some documented anxiety issues during admission. Charges/Coding Palliative Care Palliative Care: 31013 New Pt Consult 80+ min HPI Current admission Current Code Status: Patient is currently a full code but considering DNR CC?a with intubation Associated Diagnosis: Acute on chronic respiratory failure Consult Data Date of Consult: 07/22/25 Location of consult: ICU Reason for referral: Goals of care conversations and CODE STATUS Referral source: Dr. Valle Palliative care diagnosis (Summary list): Acute on chronic respiratory failure Palliative care services/treatment (Accepted, as consult): Accepted Case discussed with referring provider: Goals of care. HPI Narrative HPI Narrative: PAIN ASSESSMENT Location: [ denies ] Quality: [ ] Severity/Quantity: [ ] Timing/Frequency: [ ] Context: [ ] Factors that make it better/worse: [ ] Associated signs & symptoms: [ ] ZABRINA HSU, is a 70 F who presented to the emergency department on 07/16/2025 with respiratory failure. She was subsequently intubated. She was extubated yesterday and is currently on nasal cannula at 4 L. She is on home O2 at 3 L. I did review her labs and radiological studies as well as documentation since admission and prior admissions. She did have an echocardiogram on 07/16/2025 showing mild concentric left ventricular hypertrophy. Inferior hypokinesis. Estimated EF of 55%. Stage I diastolic dysfunction. Moderate posterior mitral valve annular calcification. Calcified cord. Mild mitral valve regurgitation. Mild tricuspid valve insufficiency. Mild calcific aortic valve leaflets. Aortic valve sclerosis without stenosis. Mild 1+ pulmonic valve insufficiency. Following extubation she did fail her initial bedside swallow study. She then had a subsequent swallow study with speech-language pathology which she also failed. Today she did pass swallow study and has introduced heart healthy diet. I then met with the patient, Marcela, at bedside. Introduced myself and the concept of palliative care in which she voluntarily excepted our services. I discussed her medical history and she had nothing more to add. When I asked if she still smokes she said not anymore. I asked her when she quit and she stated that she quit the day she came in to the hospital. I did ask her if she was interested in smoking cessation and she stated that she was and she does not plan to go back to smoking again. I had an extensive discussion with her about CODE STATUS and the benefits versus burdens of CPR. She states that she would like to talk to her family about CPR but that she would want to be intubated again if needed. Her family did come into the room during our discussion in which I also discussed with them the benefits versus burdens of CPR and requested that they speak as a family to come up with a goal of care regarding CODE STATUS. The patient's children are very realistic as well as the patient's and are leaning towards no CPR but they would like to speak to Marcela before making that decision. I did state that there was no hurry in making the decision and that we can discuss again tomorrow. I did note Kady to be significantly weak while trying to eat her lunch. Will await PT/OT recommendations but patient states that she is open to SNF rehab if needed. Her ultimate goal is to return home. We then discussed the benefits of outpatient palliative care services. She states that she does want to continue aggressive medical management of her comorbidities but that she would be interested in palliative care outpatient services. I then discussed this with the family and they would all feel that she would benefit from the services. I did offer her choice for palliative care services in which [facility] has [facility]. I also updated the family Zabrina's goals going forward as well as answered questions about her echocardiogram. Marcela did state that she is not interested in eating the food that we had here and states that it does not taste very good. She may benefit from a dietitian consult, as well. All questions the patient and family had were answered. Palliative care will continue to follow for goals of care conversations as clinical picture evolves. I did update renal social worker about patient and family's decision about outpatient palliative care services. We did discuss the patient's anxiety and I did teach her some grounding techniques including breath work and guided imagery. I did explain to her the importance of deep breathing exercises during the early stages of an anxiety attack. Hospitalist: ZABRINA HSU, is a 70 F with a past medical history of essential hypertension; on lisinopril, hyperlipidemia; on atorvastatin, chronic tobacco abuse x ~46 years, CAD; s/p stents x 3 RCA + LAD x 1 (2017) on BASA plus prn SL NTG, history of apical variant hypertrophic cardiomyopathy per MRI (2017), history of nonrheumatic mitral regurgitation, history of myocardial fibrosis, history of inducible AVNRT, tobacco abuse; with subsequent COPD, pulmonary hypertension, OAB; on oxybutynin, depression; on venlafaxine, glaucoma; on brimonidine daily and dorzolamide eyes drops TID, history of hysterectomy and OA who presents to [facility] ER complaining of SOB. Ms. Hsu was noted to be in respiratory distress upon arrival to the ER causing her to be immediately started ion BiPAP prior to being intubated so information was gathered from chart, medical staff and computer. In the ER she was noted to have a highly elevated blood pressure of 257/127 mmHg present on admission consistent with Hypertensive Emergency complicated by an elevated NT pro-BNP II of 7,963 pg/mL present on admission due to AE of CHF compounded by clinical evidence of AE COPD with Acute Hypoxic and Hypercapnic Respiratory Failure evidenced by ABG pH 7.06/ PCO2 75.1 mmHg/ PO2 73 mmHg/ HCO3 21.2 mmHg @ 86% on AC vent 400 with 5 PEEP on 50% FiO2 along with Leukocytosis of 13.1K with Left-shift of 2.9% and Lactic Acidosis of 3.2 mmol/L concerning for Sepsis in addition to Transaminitis; AST 158 U/L, ALT 118 U/L and Alkaline Phosphatase 163 U/L plus Hyperglycemia of 368 mg/dL present on admission. She was then admitted to the ICU for ongoing care for a stay that is expected to extend beyond 2 midnights. Palliative Assessment Advanced Directive - Current Admission Advance Directive: Advance Directive ON ADMISSION - REFERENCE 3 Do you have a Healthcare No 07/16/25 07:58 Living Will? Do you have a Healthcare Power No 07/16/25 07:58 of Motor Teacher? Do You Want Additional Declined 07/16/25 07:58 Information on Advanced Directives or Healthcare Proxy/DPOA comments: Patient states that they do have legal paperwork and that her , her would be her decision-maker if she is unable to make decisions for herself. Psychosocial/Spiritual Information Living situation/Marital status: Spoke spoke with and 16-year-old grandson. Geographic location: [place] Supports: Family Nondenominational/Grazyna or spiritual preference: Orthodox Prior functional status: Patient was unable to do her own ADLs related to disease processes and shortness of breath Assistive devices at home: Oxygen and walker Information about the patient as a person: Patient states that she enjoys being in her garden and her 4 cats and 2 dogs. None Symptoms Palliative performance scale: 50% Palliative prognostic index: 8.5 (if the PPI is greater than 6.0, survival is estimated to be less than 3 weeks.) Dyspnea symptoms: Severe Nausea symptoms: None Vomiting symptoms: None Depression symptoms: Mild Anorexia symptoms: Moderate Fatigue symptoms: Moderate Weakness symptoms: Moderate Confusion symptoms: None Objective Data Objective Data Vital Signs: Vital Signs Temp Pulse Resp BP Pulse Ox O2 Del Method O2 Flow Rate 98.6 F 116 H 25 H 147/68 H 98 Nasal Cannula 4 07/22/25 09:30 07/22/25 11:00 07/22/25 11:00 07/22/25 11:00 07/22/25 11:00 07/22/25 11:00 07/22/25 11:00 FiO2 91 07/22/25 06:46 Oxygen Flow Rate (L/min) 4 Oxygen Delivery Method Nasal Cannula Weight: 111 lb 12.39 oz Body Mass Index (BMI) 19.1 Intake & Output: Intake and Output for Last 24 Hours 07/20/25 07/21/25 07/22/25 23:59 23:59 23:59 Intake Total 2358.52 / 2467.62 2303.71 / 2322.46 2727.08 / 2727.08 Output Total 2475 / 2475 3050 / 3050 5350 / 5350 Balance -116.48 / -7.38 -746.29 / -727.54 -2622.92 / -2622.92 Lab / Micro Data Attestation: I reviewed the patient's lab results. 07/22/25 04:45 07/22/25 04:45 Labs: Laboratory Results - last 24 hr 07/21/25 11:55: POC Glucose 126 H 07/21/25 17:06: POC Glucose 49 L 07/21/25 17:33: POC Glucose 202 H 07/21/25 18:24: POC Glucose 52 L 07/21/25 23:19: POC Glucose 82 07/22/25 04:45: WBC 11.8 H, RBC 3.71 L, Hgb 10.7 L, Hct 32.9 L, MCV 88.7, MCH 28.8, MCHC 32.5, RDW Std Deviation 49.1 H, RDW Coeff of Shivam 15.3 H, Plt Count 452 H, MPV 9.5, Immature Gran % (Auto) 2.500 H, Neut % (Auto) 84.7 H, Lymph % (Auto) 8.4 L, [place] % (Auto) 4.1, Eos % (Auto) 0.0, Baso % (Auto) 0.3, Absolute Neuts (auto) 10.0 H, Absolute Lymphs (auto) 1.00, Nucleated RBC % 0, Sodium 142, Potassium 3.2 L, Chloride 106, Carbon Dioxide 22.3, Anion Gap 14, BUN 30 H, Creatinine 0.76, Estim Creat Clear Calc 52.85, Est GFR (MDRD) Non-Af 84, B UN/Creatinine Ratio 39.5 H, Glucose 160 H, Calcium 8.3 07/22/25 05:43: POC Glucose 169 H 07/22/25 06:40: POC Glucose 174 H 07/22/25 11:03: POC Glucose 233 H Micro: Microbiology 07/16/25 04:20 Blood Culture (Wb) - Left Hand Blood Culture - Final No growth in 5 days. 07/16/25 04:05 Blood Culture (Wb) - Right Hand Blood Culture - Final No growth in 5 days. 07/16/25 03:44 Urine, Catheterized Urine Culture - Final Culture exhibits no growth. 07/16/25 03:36 Sputum, Induced/Lukens Gram Stain - Final 07/16/25 03:36 Sputum, Induced/Lukens Respiratory Culture - Final Mixed normal respiratory renu. No Streptococcus pneumoniae, beta-hemolytic Streptococcus or Staphylococcus aureus isolated. 07/16/25 10:30 Nasal Secretion MRSA (PCR) - Final 07/16/25 09:20 Mucosa - Nasopharyngeal Respiratory Panel (PCR) - Final 07/16/25 08:25 Urine Catheter - Madrigal Legionella Antigen - Final 07/16/25 08:25 Urine Catheter - Madrigal Streptococcus pneumoniae Antigen (M - Final 07/16/25 03:44 Mucosa - Nose SARS-CoV-2, Influenza & RSV (PCR) - Final Rhythm Strip Rhythm Strip: Sinus Tach Rate: 114 Impressions & Recommendations Patient & Family Issues discussed with the patient and family: Goals of care going forward and CODE STATUS Patient goal: Patient is open to going to SNF for rehab. Considering changing CODE STATUS but for now continues to be a full code. Requesting palliative care outpatient Family goal: Family wants to support their mother. Patient's family likes the idea of palliative care outpatient and they are going to talk to the mother about CODE STATUS. Ethical & Legal Ethical and legal: None Impressions Impressions: Patient wants to continue aggressive medical management although she would be a hospice candidate if she so chooses. She has elected palliative care outpatient. Recommentation Palliative recommendations: Outpatient palliative care services. Encouter Achieved as a result of this Palliative Care Encounter: [[phone], [phone] ] minutes were spent in total for this visit which consisted, primarily of counseling and education dealing with the complex and emotionally intense issues of symptom management and palliative care in the setting of serious and potentially life-threatening illness. Review of documentation, labs and radiological studies. ?Patient/family had the opportunity to ask questions Plan (1) Acute respiratory failure with hypoxia and hypercapnia: PLAN: Medical management per primary team (2) Pneumonia: QUALIFIERS: Pneumonia type: due to unspecified organism L aterality: bilateral Lung location: unspecified part of lung Qualified Code(s): J18.9 - Pneumonia, unspecified organism PLAN: Medical management per primary team (3) Elevated troponin: PLAN: Medical management per primary team (4) Transaminitis: PLAN: Medical management per primary team (5) CHF exacerbation: QUALIFIERS: Heart failure type: unspecified Qualified Code(s): I 50.9 - Heart failure, unspecified PLAN: Medical management per primary team (6) COPD exacerbation: PLAN: Medical management per primary team (7) Counseling regarding goals of care: PLAN: *Extensive discussion about the benefits versus burdens of CPR. *Discussion about smoking cessation *Patient wants to continue aggressive medical management (8) Palliative care encounter: PLAN: *Referral to palliative care outpatient services with [facility] *Palliative care will continue to follow for goals of care conversations as clinical picture evolves.
--- NOTE | 2025-07-22 15:19 | CASEMGMT ---
[facility] inpt Palliative Care DENTAL TECH requests this RN CM to make referral to [facility] for OP [facility]iative Care services. See Palliative Care consult note. TC to [facility]. Graciela ([facility] liaison) reports to fax face sheet, order, H&P, med list, consult note, and recent progress notes to [phone]. This movie writer faxed the appropriate paperwork to [facility] at this time. Awaiting return response.
--- NOTE | 2025-07-22 16:18 | CASEMGMT ---
RN CM to the pt's room at this time regarding future DC planning. See PT notes. Pt is A&Ox3 and is sitting up in the chair. Pt informed that a referral has been made to [facility]. This RN CM reviewed how the pt has done with therapy. however, pt currently denies the need to go to a SNF at the time of DC and prefers to return home. Pt wishes to resume C services through [facility]. This RN YOANNA informed the pt that [facility] staff will continue to monitor pt's progression in the hospital to ensure safe DC planning. Pt states that if she does not get better with therapy that she may be open to a short term SNF for rehab prior to returning home. Pt denies further questions at this time. CM to follow. PLAN: TBD, anticipate SNF vs home with [facility] and Palliative Care
[2025-07-23] VITALS (30 sets, daily range): BP systolic 146–196; BP diastolic 72–105; PULSE 88–135; RESP 16–34; TEMP 36.3–37.4; O2SAT 91–100; BMI 17.9
[2025-07-23] MEDS: 0.9% Saline Lock 10 ML Syringe IV ×5 (04:18→18:41)
[2025-07-23 04:25] LABS: Hematocrit 29.6 % (37-47); Hemoglobin 9.9 g/dL (12.0-15.0); Immature Granulocytes Count 0.220 X10^3/uL (0.0-0.0); Mean Corp Hgb Conc 33.4 g/dL (32-36); Mean Corpuscular Volume 86.8 fL (81-99); Mean Platelet Vol. 9.3 fl (6.2-12.0); NRBC Flagged by Analyzer 0 % (0-5); Platelet Count 436 K/mm3 (150-450); RBC Distribution Width CV 15.0 % (11.6-14.6); RBC Distribution Width SD 47.5 fl (35.1-43.9); Red Blood Count 3.41 M/mm3 (4.2-5.4); White Blood Count 11.3 K/mm3 (4.4-11.0)
[2025-07-23 04:38] LABS: Anion Gap 13 (5-15); BUN 23 mg/dL (4-19); BUN/Creat Ratio 33.7 RATIO (10-20); Calcium,Total 8.9 mg/dL (7.6-11.0); Carbon Dioxide 25.7 mmol/L (21.0-32.0); Chloride 101 mmol/L (98-108); Estimated Creatinine Clearance 51.62 ml/min (50-250); Glucose 133 mg/dL (70-99); Potassium 2.9 mmol/L (3.3-5.1)
[2025-07-23 05:48] LABS: Magnesium 2.3 mg/dL (1.5-2.2)
[2025-07-23] MEDS: Dorzolamide 2% 10ml Bottle 1 DRP OPHTHALMIC ×3 (05:50→20:44)
[2025-07-23] MEDS: Potassium Chloride 10mEq/100mL 10 MEQ/100 ML IV.SOLN. 100 MEQ IV BOLUS ×4 (05:50→09:20)
--- NOTE | 2025-07-23 07:38 | PN.CC_ITS ---
Assessment & Plan Assessment/Plan (1) Acute respiratory failure with hypoxia and hypercapnia: PLAN: Plan RECOMMENDATIONS: 1. Supplemental oxygen to maintain saturations at or above 90%. 2. Continue scheduled bronchodilators and steroids. IV Solu-Medrol has been transitioned to prednisone to complete 5 days. 3. Continue home antihypertensive regimen. 4. Additional potassium repletion as ordered. 5. Continue nicotine replacement therapy. 6. Encourage incentive spirometer use and mobilize patient as tolerated. 7. Continue appropriate DVT prophylaxis. 8. The patient is medically stable for transfer out of the intensive care unit. Please call with any additional questions. IMPRESSIONS: 1. Acute respiratory failure with hypoxemia and hypercapnia Most likely multifactorial in etiology. The patient has a known history of COPD and a longstanding tobacco abuse history, but presented to the emergency department profoundly hypertensive with what I suspect is a component of flash pulmonary edema. The patient was ultimately intubated in the emergency department. With supportive care, including antimicrobials, steroids and diuretics, the patient improved clinically and was able to be extubated on July 21. The patient was able to complete a modified barium swallow and her diet was advanced accordingly. Accordingly, her baseline antihypertensives have been resumed. The patient's IV steroids will be transitioned to prednisone to complete 5 additional days of therapy. Recommend continuing to wean supplemental oxygen as tolerated. The patient does have a baseline oxygen requirement of 2 L/min. Continue nicotine replacement therapy. The patient is otherwise medically stable for transfer out of the intensive care unit. 2. History of coronary artery disease status post PCI/history of hypertrophic cardiomyopathy/valvular heart disease Continue diuretics as tolerated by hemodynamics and renal function. 3. Chronic tobacco dependency/depression/glaucoma/hyperlipidemia Complicates care, management, recovery and prognosis. Continue supportive measures as noted above. PT/OT to work with the patient. This note was generated with [employer] dictation software. It may contain incorrect words, spelling, and punctuation that were not noted in checking the note before signing. Subjective Subjective The patient was seen and examined at the bedside this morning. Events from the last 24 hours have been reviewed. The patient is currently afebrile, hemodynamically stable and maintaining appropriate oxygen saturations on 4 L/min via nasal cannula. The patient passed her swallow evaluation yesterday and her diet was advanced accordingly. Objective Data Objective Data The patient's most recent lab work, culture data and imaging studies have all been personally reviewed. Surface echocardiogram demonstrated mild concentric LVH with an ejection fraction of 55% and stage I diastolic dysfunction. Sputum, blood and urine cultures have not demonstrated any growth to date. Vital Signs: Vital Signs Temp Pulse Resp BP Pulse Ox O2 Del Method O2 Flow Rate 98.8 F 97 20 H 169/102 H 100 Nasal Cannula 4 07/23/25 04:00 07/23/25 07:12 07/23/25 07:12 07/23/25 07:00 07/23/25 07:00 07/23/25 07:25 07/23/25 07:25 FiO2 99 07/23/25 07:25 Oxygen Flow Rate (L/min) 4 Oxygen Delivery Method Nasal Cannula Weight: 104 lb 4.458 oz Body Mass Index (BMI) 17.9 Intake & Output: Intake and Output for Last 24 Hours 07/21/25 07/22/25 07/23/25 23:59 23:59 23:59 Intake Total 2303.71 / 2322.46 3219.58 / 3219.58 148.33 / 148.33 Output Total 3050 / 3050 7900 / 7900 1250 / 1250 Balance -746.29 / -727.54 -4680.42 / -4680.42 -1101.67 / -1101.67 Lab / Micro Data Attestation: I reviewed the patient's lab results. 07/23/25 04:05 07/23/25 04:05 Labs: Laboratory Results - last 24 hr 07/22/25 11:03: POC Glucose 233 H 07/22/25 17:00: POC Glucose 136 H 07/23/25 04:05: WBC 11.3 H, RBC 3.41 L, Hgb 9.9 L, Hct 29.6 L, MCV 86.8, MCH 29.0, MCHC 33.4, RDW Std Deviation 47.5 H, RDW Coeff of Shivam 15.0 H, Plt Count 436, MPV 9.3, Immature Gran % (Auto) 2.000 H, Neut % (Auto) 67.5, Lymph % (Auto) 17.3 L, [place] % (Auto) 13.0 H, Eos % (Auto) 0.1, Baso % (Auto) 0.1, Absolute Neuts (auto) 7.6, Absolute Lymphs (auto) 1.95, Nucleated RBC % 0, Sodium 140, P otassium 2.9 L, Chloride 101, Carbon Dioxide 25.7, Anion Gap 13, BUN 23 H, C reatinine 0.68 L, Estim Creat Clear Calc 51.62, Est GFR (MDRD) Non-Af 93, B UN/Creatinine Ratio 33.7 H, Glucose 133 H, Calcium 8.9, Magnesium 2.3 H Micro: Microbiology 07/16/25 04:20 Blood Culture (Wb) - Left Hand Blood Culture - Final No growth in 5 days. 07/16/25 04:05 Blood Culture (Wb) - Right Hand Blood Culture - Final No growth in 5 days. 07/16/25 03:44 Urine, Catheterized Urine Culture - Final Culture exhibits no growth. 07/16/25 03:36 Sputum, Induced/Lukens Gram Stain - Final 07/16/25 03:36 Sputum, Induced/Lukens Respiratory Culture - Final Mixed normal respiratory renu. No Streptococcus pneumoniae, beta-hemolytic Streptococcus or Staphylococcus aureus isolated. 07/16/25 10:30 Nasal Secretion MRSA (PCR) - Final 07/16/25 09:20 Mucosa - Nasopharyngeal Respiratory Panel (PCR) - Final 07/16/25 08:25 Urine Catheter - Madrigal Legionella Antigen - Final 07/16/25 08:25 Urine Catheter - Madrigal Streptococcus pneumoniae Antigen (M - Final 07/16/25 03:44 Mucosa - Nose SARS-CoV-2, Influenza & RSV (PCR) - Final ABG Data ABG results: ABG 07/16/25 09:42 Specimen Type ART Sample Site L Radial pH 7.49 H Bicarbonate Actual 29.1 H Total CO2 30 Base Excess 6 H O2 Saturation 98 O2 % 50.0 ABG pCO2 38.6 ABG pO2 96 Steve Test N/A Respiration Rate 20 O2 Delivery Device Adult Vent Vent Mode AC Tidal Volume 400.0 POC PEEP 5 Radiography Diagnostic Testing: Radiology Impression Echocardiogram 07/16/25 06:31 Interpretation Summary Mild concentric left ventricular hypertrophy. Inferior hypokinesis. Estimated LVEF 55%. Stage I diastolic dysfunction. Moderate posterior mitral valve annular calcification. Calcified chord. Mild mitral valve regurgitation. Mild tricuspid valve insufficiency. Mildly calcified aortic valve leaflets. Aortic valve sclerosis without stenosis. Mild (1+) pulmonic valve insufficiency. Ordering Physician: Clarence Zuniga Performed By: Jake Miguel RCS Chest X-Ray 07/16/25 09:05 IMPRESSION: Tubes and lines in position. There interstitial infiltrates in the perihilar region bilaterally and in the left upper lung. Reading Location: [facility] Chest X-Ray 07/17/25 05:10 IMPRESSION: Tubes and lines in position. There are perihilar infiltrates in the right and left, improved. Reading Location: [facility] Rhythm Strip Rhythm Strip: Sinus Tach Rate: 114 Physical Exam Const alert, oriented x3 and no apparent distress General Appearance: cooperative, ill appearing Positive for chronically and frail HEENT normocephalic and head/scalp atraumatic Eyes EOMs intact bilaterally, conjunctivae normal and no scleral icterus Neck supple General: trachea midline Chest Chest Narrative: Increased AP diameter. Resp no use of accessory muscles Auscultation: diminished lung sounds; Negative for rales, rhonchi or wheezes Cardio regular rate and regular rhythm GI normal to inspection, nondistended, normoactive bowel sounds Extremity no clubbing, cyanosis or edema Skin no rashes or lesions noted Neuro CN's II-XII intact bilaterally, moves all extremities and no focal motor deficits Psych cooperative and affect normal Charges/Coding Visit Charges Inpatient E&M: 87802 Subs Hosp L2
[2025-07-23] MEDS: BRIMONIDINE 0.2% 5ML BOTTLE 1 DRP OPHTHALMIC (07:57)
[2025-07-23] MEDS: Nicotine (PBKC) 14 MG Patch TD (07:59)
[2025-07-23] MEDS: Senna/Docusate Sodium 1 Tablet 2 TABLET PO (08:02)
[2025-07-23] MEDS: Potassium Chloride Oral Tablet 20 MEQ 40 MEQ PO (09:43)
[2025-07-23] MEDS: CHLORHEXIDINE GLUC 2% CLOTH 1 EACH TOWELETTE TOPICAL (09:45)
--- NOTE | 2025-07-23 09:48 | CASEMGMT ---
During ICU Rounds, Dr Valle requests the pt to follow up with [facility] as an OP. TC to [facility] who scheduled the pt for 07/29/25 at 0915. DC intervention updated. CM to continue to follow.
--- NOTE | 2025-07-23 12:12 | PN_ITS ---
Subjective Subjective Patient seen and examined. She says she felt much better today. However this morning she says she threw up her breakfast. She denied any chest pain, shortness of breath or palpitations, dizziness, nausea or vomiting or any other symptoms. Review of systems otherwise negative. She is on 3 L of oxygen this morning. However she has been tachypneic and tachycardic. Objective Data Objective Data Vital Signs: Vital Signs Temp Pulse Resp BP Pulse Ox O2 Del Method O2 Flow Rate 97.3 F L 112 H 29 H 149/76 H 99 Nasal Cannula 3 07/23/25 08:00 07/23/25 10:07/23/25 10:29 07/23/25 10:29 07/23/25 10:07/23/25 10:07/23/25 10: FiO2 99 07/23/25 07:25 Oxygen Flow Rate (L/min) 3 Oxygen Delivery Method Nasal Cannula Weight: 104 lb 4.458 oz Body Mass Index (BMI) 17.9 Intake & Output: Intake and Output for Last 24 Hours 07/21/25 07/22/25 07/23/25 23:59 23:59 23:59 Intake Total 2303.71 / 2322.46 3219.58 / 3219.58 508.33 / 508.33 Output Total 3050 / 3050 7900 / 7900 1250 / 1250 Balance -746.29 / -727.54 -4680.42 / -4680.42 -741.67 / -741.67 Lab / Micro Data 07/23/25 04:05 07/23/25 04:05 Labs: Laboratory Results - last 24 hr 07/22/25 17:00: POC Glucose 136 H 07/23/25 04:05: WBC 11.3 H, RBC 3.41 L, Hgb 9.9 L, Hct 29.6 L, MCV 86.8, MCH 29.0, MCHC 33.4, RDW Std Deviation 47.5 H, RDW Coeff of Shivam 15.0 H, Plt Count 436, MPV 9.3, Immature Gran % (Auto) 2.000 H, Neut % (Auto) 67.5, Lymph % (Auto) 17.3 L, [place] % (Auto) 13.0 H, Eos % (Auto) 0.1, Baso % (Auto) 0.1, Absolute Neuts (auto) 7.6, Absolute Lymphs (auto) 1.95, Nucleated RBC % 0, Sodium 140, P otassium 2.9 L, Chloride 101, Carbon Dioxide 25.7, Anion Gap 13, BUN 23 H, C reatinine 0.68 L, Estim Creat Clear Calc 51.62, Est GFR (MDRD) Non-Af 93, B UN/Creatinine Ratio 33.7 H, Glucose 133 H, Calcium 8.9, Magnesium 2.3 H 07/23/25 07:51: POC Glucose 137 H Micro: Microbiology 07/16/25 04:20 Blood Culture (Wb) - Left Hand Blood Culture - Final No growth in 5 days. 07/16/25 04:05 Blood Culture (Wb) - Right Hand Blood Culture - Final No growth in 5 days. 07/16/25 03:44 Urine, Catheterized Urine Culture - Final Culture exhibits no growth. 07/16/25 03:36 Sputum, Induced/Lukens Gram Stain - Final 07/16/25 03:36 Sputum, Induced/Lukens Respiratory Culture - Final Mixed normal respiratory renu. No Streptococcus pneumoniae, beta-hemolytic Streptococcus or Staphylococcus aureus isolated. 07/16/25 10:30 Nasal Secretion MRSA (PCR) - Final 07/16/25 09:20 Mucosa - Nasopharyngeal Respiratory Panel (PCR) - Final 07/16/25 08:25 Urine Catheter - Madrigal Legionella Antigen - Final 07/16/25 08:25 Urine Catheter - Madrigal Streptococcus pneumoniae Antigen (M - Final 07/16/25 03:44 Mucosa - Nose SARS-CoV-2, Influenza & RSV (PCR) - Final Rhythm Strip Rhythm Strip: Sinus Tach Rate: 114 Physical Exam Const alert, oriented x3 and no apparent distress General Appearance: cooperative HEENT normocephalic, head/scalp atraumatic, moist oral mucous membranes and oropharynx normal Eyes PERRL, EOMs intact bilaterally and conjunctivae normal Neck supple Lymph Lymphatic: no lymphedema noted Resp Resp Narrative: mildly diminished breath sounds bibasally, no wheezes or crackles. On 3 L of oxygen by nasal canula Cardio regular rhythm, S1 normal heart sound, S2 normal heart sound and no murmurs Cardio Narrative: tachycardic GI normal to inspection, nondistended, normoactive bowel sounds, soft to palpation, non-tender, non-distended and hepatosplenomegaly Extremity normal to inspection, full ROM, normal capillary refill and no clubbing, cyanosis or edema General Extremity: no tenderness to palpation of joints or extremities Skin General Skin Exam: no breakdown Neuro moves all extremities, no focal motor deficits and no sensory deficits noted Sensorium / Orientation: awake and alert Motor Exam: general weakness Psych thought process normal Psych Narrative: patient very tearful Appearance: appropriate Assessment & Plan Assessment/Plan (1) Acute respiratory failure with hypoxia and hypercapnia: (2) Pneumonia: QUALIFIERS: Pneumonia type: due to unspecified organism L aterality: bilateral Lung location: unspecified part of lung Qualified Code(s): J18.9 - Pneumonia, unspecified organism PLAN: Plan #Acute hypoxic respiratory failure * Patient extubated on 07/21/2025. Currently on 3 L of oxygen. * Thought to be due to acute exacerbation of COPD as well as heart failure and possible pneumonia. On empiric IV ceftriaxone and azithromycin. * Urine for strep and Legionella negative. Respiratory panel negative. * passed repeat swallow eval after failing the first one and is now on a modified diet. * On IV Solu-Medrol as well as IV Lasix. * To complete a 7-day course of antibiotics. * #Elevated troponin: * 2D echo showed no regional wall motion abnormalities. * 2D echo showed EF of 55% and inferior hypokinesis. * Thought to be due to demand ischemia from hypertension and respiratory failure. No need for further workup now. #Hypertension * BP still poorly controlled. Was admitted and hypertensive emergency. * Blood pressure was markedly elevated at 257/127 on admission and there were concerns of flash pulmonary edema. * oral meds resumed- on amlodipine 10 mg daily and metoprolol 25 mg twice daily. She has been weaned off of the nicardipine drip. * IV hydralazine as needed. * #CAD s/p stents: On sublingual nitroglycerin. 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 Currently stable. #Hyperlipidemia: On statin #Depression: On venlafaxine #History of glaucoma: On brimonidine and dorzolamide eyedrops DVT prophylaxis: Lovenox Disposition: transfer to PCU Charges/Coding Visit Charges Inpatient E&M: 08627 Subs Hosp L2
[2025-07-24] VITALS (15 sets, daily range): BP systolic 148–187; BP diastolic 63–82; PULSE 58–121; RESP 12–20; TEMP 36.6–36.7; O2SAT 91–100; BMI 17.7
[2025-07-24 07:41] LABS: Hematocrit 31.8 % (37-47); Hemoglobin 10.5 g/dL (12.0-15.0); Immature Granulocytes Count 0.160 X10^3/uL (0.0-0.0); Mean Corp Hgb Conc 33.0 g/dL (32-36); Mean Corpuscular Volume 86.9 fL (81-99); Mean Platelet Vol. 8.9 fl (6.2-12.0); NRBC Flagged by Analyzer 0 % (0-5); Platelet Count 464 K/mm3 (150-450); RBC Distribution Width CV 14.4 % (11.6-14.6); RBC Distribution Width SD 45.8 fl (35.1-43.9); Red Blood Count 3.66 M/mm3 (4.2-5.4); White Blood Count 9.7 K/mm3 (4.4-11.0)
[2025-07-24 08:27] LABS: Anion Gap 12 (5-15); BUN 36 mg/dL (4-19); BUN/Creat Ratio 41.8 RATIO (10-20); Calcium,Total 8.8 mg/dL (7.6-11.0); Carbon Dioxide 25.1 mmol/L (21.0-32.0); Chloride 97 mmol/L (98-108); Estimated Creatinine Clearance 45.04 ml/min (50-250); Glucose 102 mg/dL (70-99); Potassium 3.1 mmol/L (3.3-5.1)
[2025-07-24] MEDS: Nicotine (PBKC) 14 MG Patch TD (08:54)
[2025-07-24] MEDS: BRIMONIDINE 0.2% 5ML BOTTLE 1 DRP OPHTHALMIC (08:59)
--- NOTE | 2025-07-24 11:27 | CASEMGMT ---
Addendum entered by Nubia Hughes 07/24/25 11:37: [facility] has accepted and will submit for precert. GERARDO CM updated. Nubia Hughes DC Planning Asst. Original Note: Discharge Planning Referral sent to [facility]. Nubia Hughes DC Planning Asst.
--- NOTE | 2025-07-24 11:34 | CASEMGMT ---
Addendum entered by Tomasa Aviles 07/25/25 16:02: This RN CM has not received a return call from [facility]. TC to [facility] at this time, no answer. VM left letting [facility] know that the pt will be discharging to [facility] once medically ready and requested [facility] to contact that facility for f/u. Addendum entered by Tomasa Aviles 07/24/25 14:14: [facility] calls this RN CM back and states that they are unable to accept due to being out of network with the pt's insurance. [facility] states that they are currently looking into further options for the pt and will call this grant writer back. [employer] notified. CM to follow. Addendum entered by Tomasa Aviles 07/24/25 13:25: 0700 started in the [facility] Addendum entered by Tomasa Aviles 07/24/25 11:46: [facility] has accepted and precert is now pending. RN CM to the pt's room at this time and notified. Updated the pt on the new Pulmonary f/u appt. Informed the pt that this grant writer is awaiting return response from [facility]. Pt thanks this RN CM and denies further questions or concerns. MD updated. Original Note: PT/OT collaborated with this RN CM stating that the pt is not safe for DC home in her current condition and that they recommend SNF placement for the pt to help the pt to return to her PLOF. PT/OT states that the pt is agreeable to SNF. This RN CM to the pt's room at this time. Pt's at bedside. Pt states that she is now agreeable to short term SNF placement. At this time, pt declines wanting to review a list of local in-network SNF's and states that her [facility] is [facility] [place]. [facility] notified and plans to make referral and notify [facility] of DC plan. This RN CM collaborated with Dr Encarnacion who states that the SNF process can be initiated. Pt's original Pulmonary F/u appt is scheduled for Jul 29. However, pt will likely still be at the SNF at that time. TC to [facility] who states that the next available appt is August [address] Valle states that he is OK with this. DC info updated. TC to [facility] to follow up on referral. No answer, ANGIE left with request to return call. CM to continue to follow. Sidney AVILES RN CM
[2025-07-24] MEDS: Dorzolamide 2% 10ml Bottle 1 DRP OPHTHALMIC ×2 (14:04→21:15)
--- NOTE | 2025-07-24 17:12 | PCM.PROGNOTE ---
Subjective Subjective Patient seen and examined. She had no active complaints. She had had an uneventful night. There was concern that she will need GI evaluation for dysphagia. However speech therapy evaluated her again today and put her on a regular bite-size diet. Review of systems otherwise negative. She is on 2 L of oxygen. She is now awaiting placement. Objective Data Objective Data Vital Signs: Vital Signs Temp Pulse Resp BP Pulse Ox O2 Del Method O2 Flow Rate 97.9 F 110 H 12 156/82 H 91 Nasal Cannula 2 07/24/25 16:39 07/24/25 16:39 07/24/25 16:39 07/24/25 16:39 07/24/25 16:39 07/24/25 16:39 07/24/25 16:39 FiO2 99 07/23/25 07:25 Oxygen Flow Rate (L/min) 2 Oxygen Delivery Method Nasal Cannula Weight: 103 lb 9.876 oz Body Mass Index (BMI) 17.7 Intake & Output: Intake and Output for Last 24 Hours 07/22/25 07/23/25 07/24/25 23:59 23:59 23:59 Intake Total 3219.58 / 3219.58 688.33 / 688.33 Output Total 7900 / 7900 3100 / 3100 450 / 450 Balance -4680.42 / -4680.42 -2411.67 / -2411.67 -450 / -450 Lab / Micro Data 07/24/25 07:30 07/24/25 07:30 Labs: Laboratory Results - last 24 hr 07/24/25 07:30: WBC 9.7, RBC 3.66 L, Hgb 10.5 L, Hct 31.8 L, MCV 86.9, MCH 28.7, MCHC 33.0, RDW Std Deviation 45.8 H, RDW Coeff of Shivam 14.4, Plt Count 464 H, MPV 8.9, Immature Gran % (Auto) 1.700 H, Neut % (Auto) 60.9, Lymph % (Auto) 26.7, [place] % (Auto) 10.0, Eos % (Auto) 0.6, Baso % (Auto) 0.1, Absolute Neuts (auto) 5.9, Absolute Lymphs (auto) 2.58, Nucleated RBC % 0, Sodium 135, Potassium 3.1 L, Chloride 97 L, Carbon Dioxide 25.1, Anion Gap 12, BUN 36 H, Creatinine 0.85, Estim Creat Clear Calc 45.04 L, Est GFR (MDRD) Non-Af 73, BUN/Creatinine Ratio 41.8 H, Glucose 102 H, Calcium 8.8 07/24/25 07:53: POC Glucose 97 07/24/25 11:34: POC Glucose 138 H 07/24/25 16:17: POC Glucose 135 H Micro: Microbiology 07/16/25 04:20 Blood Culture (Wb) - Left Hand Blood Culture - Final No growth in 5 days. 07/16/25 04:05 Blood Culture (Wb) - Right Hand Blood Culture - Final No growth in 5 days. 07/16/25 03:44 Urine, Catheterized Urine Culture - Final Culture exhibits no growth. 07/16/25 03:36 Sputum, Induced/Lukens Gram Stain - Final 07/16/25 03:36 Sputum, Induced/Lukens Respiratory Culture - Final Mixed normal respiratory renu. No Streptococcus pneumoniae, beta-hemolytic Streptococcus or Staphylococcus aureus isolated. 07/16/25 10:30 Nasal Secretion MRSA (PCR) - Final 07/16/25 09:20 Mucosa - Nasopharyngeal Respiratory Panel (PCR) - Final 07/16/25 08:25 Urine Catheter - Madrigal Legionella Antigen - Final 07/16/25 08:25 Urine Catheter - Madrigal Streptococcus pneumoniae Antigen (M - Final 07/16/25 03:44 Mucosa - Nose SARS-CoV-2, Influenza & RSV (PCR) - Final Rhythm Strip Rhythm Strip: Sinus Tach Rate: 114 Physical Exam Const alert, oriented x3 and no apparent distress Constitutional Narrative: tearful, in mild distress General Appearance: cooperative HEENT normocephalic, head/scalp atraumatic, moist oral mucous membranes and oropharynx normal Eyes PERRL, EOMs intact bilaterally and conjunctivae normal Neck no lymphadenopathy and supple Lymph Lymphatic: no lymphedema noted Resp normal respiratory effort Resp Narrative: mildly diminished breath sounds bibasally, no wheezes or crackles. On 2 L of oxygen by nasal canula Cardio regular rhythm, S1 normal heart sound, S2 normal heart sound and no murmurs Cardio Narrative: mildly tachycardic GI normal to inspection, nondistended, normoactive bowel sounds, soft to palpation, non-tender and non-distended Extremity normal to inspection, full ROM, normal capillary refill and no clubbing, cyanosis or edema General Extremity: no tenderness to palpation of joints or extremities Skin General Skin Exam: no breakdown Neuro moves all extremities, no focal motor deficits and no sensory deficits noted Sensorium / Orientation: awake and alert Motor Exam: general weakness Psych thought process normal Appearance: appropriate Assessment & Plan Assessment/Plan (1) Acute respiratory failure with hypoxia and hypercapnia: (2) Pneumonia: QUALIFIERS: Pneumonia type: due to unspecified organism Laterality: bilateral Lung location: unspecified part of lung Qualified Code(s): J18.9 - Pneumonia, unspecified organism PLAN: Plan #Acute on chronic hypoxic respiratory failure Patient extubated on 07/21/2025. Thought to be due to acute exacerbation of COPD as well as heart failure and possible pneumonia. On empiric IV ceftriaxone and azithromycin. Urine for strep and Legionella negative. Respiratory panel negative. passed repeat swallow eval after failing the first one and is now on a modified diet. On p.o. Lasix. On p.o. prednisone now. To complete a 7-day course of antibiotics. now down to 2L of oxygen which is her baseline #Elevated troponin: 2D echo showed no regional wall motion abnormalities and showed EF of 55% and inferior hypokinesis. Thought to be due to demand ischemia from hypertension and respiratory failure. No need for further workup now. #Hypertension Was admitted with hypertensive emergency. Blood pressure is better controlled now. Blood pressure was markedly elevated at 257/127 on admission and there were concerns of flash pulmonary edema. She did require nicardipine drip during the admission. oral meds resumed- on amlodipine 10 mg daily and metoprolol 25 mg twice daily. IV hydralazine as needed. #Hypokalemia: Potassium is 3.1 today. Replace and trend. #CAD s/p stents: On sublingual nitroglycerin. 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 Currently stable. #Hyperlipidemia: On statin #Depression: On venlafaxine #History of glaucoma: On brimonidine and dorzolamide eyedrops DVT prophylaxis: Lovenox Disposition: transfer to PCU Disposition: Patient now agreeable to going to a halfway. Case management on board. Charges/Coding Visit Charges Inpatient E&M: 35520 Subs Hosp L2
[2025-07-24] MEDS: Senna/Docusate Sodium 1 Tablet 2 TABLET PO (21:15)
[2025-07-25] VITALS (10 sets, daily range): BP systolic 132–161; BP diastolic 60–94; PULSE 58–134; RESP 16–20; TEMP 36.4–37.4; O2SAT 96–100; BMI 17.4
[2025-07-25 05:58] LABS: Hematocrit 29.8 % (37-47); Hemoglobin 9.9 g/dL (12.0-15.0); Immature Granulocytes Count 0.190 X10^3/uL (0.0-0.0); Mean Corp Hgb Conc 33.2 g/dL (32-36); Mean Corpuscular Volume 86.4 fL (81-99); Mean Platelet Vol. 9.5 fl (6.2-12.0); NRBC Flagged by Analyzer 0 % (0-5); Platelet Count 499 K/mm3 (150-450); RBC Distribution Width CV 13.9 % (11.6-14.6); RBC Distribution Width SD 43.7 fl (35.1-43.9); Red Blood Count 3.45 M/mm3 (4.2-5.4); White Blood Count 10.4 K/mm3 (4.4-11.0)
[2025-07-25] MEDS: Dorzolamide 2% 10ml Bottle 1 DRP OPHTHALMIC ×3 (06:12→23:16)
[2025-07-25 06:28] LABS: Anion Gap 12 (5-15); BUN 25 mg/dL (4-19); BUN/Creat Ratio 36.1 RATIO (10-20); Calcium,Total 8.7 mg/dL (7.6-11.0); Carbon Dioxide 26.7 mmol/L (21.0-32.0); Chloride 98 mmol/L (98-108); Estimated Creatinine Clearance 46.84 ml/min (50-250); Glucose 102 mg/dL (70-99); Potassium 3.0 mmol/L (3.3-5.1)
[2025-07-25] MEDS: Nicotine (PBKC) 14 MG Patch TD (10:53)
[2025-07-25] MEDS: BRIMONIDINE 0.2% 5ML BOTTLE 1 DRP OPHTHALMIC (10:53)
[2025-07-25] MEDS: Senna/Docusate Sodium 1 Tablet 2 TABLET PO ×2 (10:54→23:16)
[2025-07-25] MEDS: Potassium Chloride Oral Tablet 20 MEQ 40 MEQ PO (10:59)
--- NOTE | 2025-07-25 13:32 | CASEMGMT ---
Social Work [facility] submitted for pre-cert today. GHASSAN Anderson
--- NOTE | 2025-07-25 13:36 | CASEMGMT ---
Social Work SW spoke with the patient and informed her she will DC to [facility] once insurance approves it. GHASSAN Anderson
--- NOTE | 2025-07-25 14:05 | CASEMGMT ---
Discharge Planning [facility] notified that can dc when precert is obtained. Unit phone number given for notification. Green sheet completed and given to SW. Nubia Hughes, TERESA Planning Asst.
--- NOTE | 2025-07-25 14:08 | CASEMGMT ---
Social Work Patient is discharging to [facility]. Green sheet in the chart. GHASSAN Anderson
--- NOTE | 2025-07-25 14:20 | CASEMGMT ---
Addendum entered by Sobeida Martinez 07/25/25 14:26: SW spoke Kelly with [facility] and informed them that patent is discharging to a SNF. Original Note: Social Work SW called [facility] and left a message. GHASSAN Anderson
--- NOTE | 2025-07-25 14:29 | CASEMGMT ---
[facility] has obtained auth to admit. SW's updated. Nubia Hughes DC Planning Asst.
--- NOTE | 2025-07-25 14:49 | CASEMGMT ---
Social Work As per RN, pt now not ready for d/c today. SW spoke w/pt, let her know that the insurance authorization was attained, however, she is not medically ready today. Pt states understanding, is okay with staying until she is medically ready. SW offered to call her family, pt states her family will be here shortly. MALIK Alvarado
--- NOTE | 2025-07-25 15:15 | PCM.PROGNOTE ---
Subjective Subjective Patient seen and examined with her nurse by her bedside. She was lying comfortably in bed and had no active complaints. She had an uneventful night. Review of systems otherwise negative. She did get pre-CERT today and plan was to discharge her, but she became tachycardic with her HR going up to the 130 and 140s with movement. Discharge therefore canceled.s Objective Data Objective Data Vital Signs: Vital Signs Temp Pulse Resp BP Pulse Ox O2 Del Method O2 Flow Rate 97.8 F 64 16 161/74 H 100 Room Air 2 07/25/25 10:49 07/25/25 13:33 07/25/25 13:33 07/25/25 10:54 07/25/25 10:49 07/25/25 10:49 07/24/25 16:39 FiO2 99 07/23/25 07:25 Oxygen Flow Rate (L/min) 2 Oxygen Delivery Method Room Air Weight: 101 lb 6.602 oz Body Mass Index (BMI) 17.4 Intake & Output: Intake and Output for Last 24 Hours 07/23/25 07/24/25 07/25/25 23:59 23:59 23:59 Intake Total 688.33 / 688.33 Output Total 3100 / 3100 450 / 450 Balance -2411.67 / -2411.67 -450 / -450 Lab / Micro Data 07/25/25 05:21 07/25/25 05:21 Labs: Laboratory Results - last 24 hr 07/24/25 16:17: POC Glucose 135 H 07/24/25 21:10: POC Glucose 193 H 07/25/25 05:21: WBC 10.4, RBC 3.45 L, Hgb 9.9 L, Hct 29.8 L, MCV 86.4, MCH 28.7, MCHC 33.2, RDW Std Deviation 43.7, RDW Coeff of Shivam 13.9, Plt Count 499 H, MPV 9.5, Immature Gran % (Auto) 1.800 H, Neut % (Auto) 60.9, Lymph % (Auto) 25.5, [place] % (Auto) 10.5 H, Eos % (Auto) 1.1, Baso % (Auto) 0.2, Absolute Neuts (auto) 6.4, Absolute Lymphs (auto) 2.65, Nucleated RBC % 0, Sodium 137, Potassium 3.0 L, Chloride 98, Carbon Dioxide 26.7, Anion Gap 12, BUN 25 H, Creatinine 0.70, Estim Creat Clear Calc 46.84 L, Est GFR (MDRD) Non-Af 92, BUN/Creatinine Ratio 36.1 H, Glucose 102 H, Calcium 8.7 07/25/25 06:10: POC Glucose 111 H 07/25/25 12:19: POC Glucose 129 H Micro: Microbiology 07/16/25 04:20 Blood Culture (Wb) - Left Hand Blood Culture - Final No growth in 5 days. 07/16/25 04:05 Blood Culture (Wb) - Right Hand Blood Culture - Final No growth in 5 days. 07/16/25 03:44 Urine, Catheterized Urine Culture - Final Culture exhibits no growth. 07/16/25 03:36 Sputum, Induced/Lukens Gram Stain - Final 07/16/25 03:36 Sputum, Induced/Lukens Respiratory Culture - Final Mixed normal respiratory renu. No Streptococcus pneumoniae, beta-hemolytic Streptococcus or Staphylococcus aureus isolated. 07/16/25 10:30 Nasal Secretion MRSA (PCR) - Final 07/16/25 09:20 Mucosa - Nasopharyngeal Respiratory Panel (PCR) - Final 07/16/25 08:25 Urine Catheter - Madrigal Legionella Antigen - Final 07/16/25 08:25 Urine Catheter - Madrigal Streptococcus pneumoniae Antigen (M - Final 07/16/25 03:44 Mucosa - Nose SARS-CoV-2, Influenza & RSV (PCR) - Final Rhythm Strip Rhythm Strip: Sinus Tach Rate: 114 Physical Exam Const alert, oriented x3 and no apparent distress General Appearance: cooperative HEENT normocephalic, head/scalp atraumatic, moist oral mucous membranes and oropharynx normal Eyes PERRL, EOMs intact bilaterally and conjunctivae normal Neck no lymphadenopathy and supple Lymph Lymphatic: no lymphedema noted Resp Resp Narrative: mildly diminished breath sounds bibasally, no wheezes or crackles. On room air. Cardio regular rhythm, S1 normal heart sound, S2 normal heart sound and no murmurs Cardio Narrative: tachycardia GI normal to inspection, nondistended, normoactive bowel sounds, soft to palpation, non-tender, non-distended and hepatosplenomegaly Extremity normal to inspection, full ROM, normal capillary refill and no clubbing, cyanosis or edema General Extremity: no tenderness to palpation of joints or extremities Skin Skin Narrative: Patient has no evidence of rash, abscess, wounds or jaundice. General Skin Exam: no breakdown Neuro moves all extremities, no focal motor deficits and no sensory deficits noted Sensorium / Orientation: awake and alert Motor Exam: general weakness Psych thought process normal Appearance: appropriate Assessment & Plan Assessment/Plan (1) Acute respiratory failure with hypoxia and hypercapnia: (2) Pneumonia: QUALIFIERS: Pneumonia type: due to unspecified organism Laterality: bilateral Lung location: unspecified part of lung Qualified Code(s): J18.9 - Pneumonia, unspecified organism PLAN: Plan #Acute on chronic hypoxic respiratory failure Patient extubated on 07/21/2025. Thought to be due to acute exacerbation of COPD as well as heart failure and possible pneumonia. On empiric IV ceftriaxone and azithromycin. Urine for strep and Legionella negative. Respiratory panel negative. passed repeat swallow eval after failing the first one and is now on a modified diet. On p.o. Lasix. On p.o. prednisone now. completed a 7 day course of antibiotics now down to 2L of oxygen which is her baseline #Elevated troponin: 2D echo showed EF of 55% and inferior hypokinesis. Thought to be due to demand ischemia from hypertension and respiratory failure. No need for further workup now. #Hypertension Was admitted with hypertensive emergency. Blood pressure is better controlled now. Blood pressure was markedly elevated at 257/127 on admission and there were concerns of flash pulmonary edema. She did require nicardipine drip during the admission. oral meds resumed- on amlodipine 10 mg daily and metoprolol 25 mg twice daily. IV hydralazine as needed. #Hypokalemia: Potassium is 3.1 today. Replace and trend. #CAD s/p stents: On sublingual nitroglycerin. On aspirin daily and high intensity statin #History of AVNRT: patient noted to be tachycardic. On metoprolol 25mg bid. However, HR up to the 120s-140s. Will increase metoprolol to 50mg bid. 2D echo from 07/16/2025 showed mild concentric LV hypertrophy and inferior hypokinesis with stage I diastolic dysfunction and estimated EF of 55% as well as aortic valve sclerosis without stenosis. I thnk it is reasonable to get cardiology consult due to her persistent tachycardia and 2D echo findings. In comparison, 2D echo from 12/27/2016 which is only previous echo on file showed mild focal apical segmental left ventricular dysfunction with preserved EF of 65%. 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 Currently stable. #Hyperlipidemia: On statin #Depression: On venlafaxine #History of glaucoma: On brimonidine and dorzolamide eyedrops DVT prophylaxis: Lovenox Disposition: Patient now agreeable to going to a fdc. Case management on board.She did get precert today, but has remained tachycardic with HR going up to the 140s. Charges/Coding Visit Charges Inpatient E&M: 85402 Subs Hosp L2
[2025-07-25 17:39] LABS: D-Dimer Quantitative (DVT/PE) 1.10 FEU/ug/m (0.27-0.49)
--- NOTE | 2025-07-25 17:41 | CT_ITS ---
PROCEDURE: CTA CHEST W/WO CONTRAST 07/25/2025 REASON FOR EXAM: TACHYCARDIA, ELEVATED D DIMER TECHNIQUE: Procedure Code: [id number] Modality: CT Procedure: CTA CHEST W/WO CONTRAST Multidetector CT angiography of the chest with intravenous contrast including multiplanar and post-processed maximum intensity projection (MIP) were generated and interpreted. CONTRAST: Isovue 370 VOLUME: 75 mL One or more dose reduction techniques were used (e.g., Automated exposure control, adjustment of the mA and/or kV according to patient size, use of iterative reconstruction technique). RADIATION DOSE SUMMARY: DLP: 121.87 mGycm COMPARISON: CTA of the chest 07/16/2025 FINDINGS: Opacification of the pulmonary arterial tree is adequate Pulmonary artery and thoracic vessels: There are no filling defects in the central pulmonary arteries. The main pulmonary artery and thoracic aorta are normal in caliber. Extensive atherosclerotic calcification along the aortic arch in the ascending thoracic aorta. There is inferior vena cava contrast reflux which may reflect right heart failure. Pulmonary parenchyma: Interval resolution of bilateral pleural effusions. No focal lung consolidation. Unchanged multiple right lower lobe enhancing foci (series 2, image 138). Predominantly centrilobular emphysema. Airways: The central airways are patent. Interval removal of endotracheal tube. Pleural space: Biapical pleural thickening. No pneumothorax or pleural effusion. Heart and pericardium: The heart is normal in size. No significant pericardial effusion. Mediastinum and dalila: Unremarkable. Osseous structures: No aggressive osseous lesion. Degenerative changes of the thoracic spine. Upper visualized abdomen: Unremarkable. CT/CTA Chest W/WO Contrast IMPRESSION: 1. No evidence of pulmonary embolism. 2. No focal lung consolidation. 3. Interval resolution of bilateral pleural effusions. 4. Atherosclerotic disease of the thoracic aorta. Reading Location: [id number]
[2025-07-26 01:47] VITALS: PULSE 108; RESP 16
[2025-07-26 05:39] VITALS: BP 168/93; PULSE 98; RESP 20; TEMP 36.8; O2SAT 100
[2025-07-26] MEDS: Dorzolamide 2% 10ml Bottle 1 DRP OPHTHALMIC (05:43)
[2025-07-26 06:00] VITALS: BMI 17.2
[2025-07-26 07:13] VITALS: PULSE 85; RESP 16
[2025-07-26 07:15] LABS: Hematocrit 28.6 % (37-47); Hemoglobin 9.6 g/dL (12.0-15.0); Immature Granulocytes Count 0.300 X10^3/uL (0.0-0.0); Mean Corp Hgb Conc 33.6 g/dL (32-36); Mean Corpuscular Volume 84.4 fL (81-99); Mean Platelet Vol. 9.6 fl (6.2-12.0); NRBC Flagged by Analyzer 0 % (0-5); Platelet Count 482 K/mm3 (150-450); RBC Distribution Width CV 14.0 % (11.6-14.6); RBC Distribution Width SD 43.3 fl (35.1-43.9); Red Blood Count 3.39 M/mm3 (4.2-5.4); White Blood Count 10.4 K/mm3 (4.4-11.0)
[2025-07-26 07:38] LABS: Anion Gap 13 (5-15); BUN 21 mg/dL (4-19); BUN/Creat Ratio 30.2 RATIO (10-20); Calcium,Total 8.9 mg/dL (7.6-11.0); Carbon Dioxide 25.7 mmol/L (21.0-32.0); Chloride 96 mmol/L (98-108); Estimated Creatinine Clearance 46.43 ml/min (50-250); Glucose 98 mg/dL (70-99); Potassium 2.8 mmol/L (3.3-5.1)
[2025-07-26] MEDS: Potassium Chloride Oral Tablet 20 MEQ 40 MEQ PO (08:14)
[2025-07-26 08:42] LABS: Magnesium 2.2 mg/dL (1.5-2.2)
[2025-07-26 10:00] VITALS: BP 151/73; PULSE 98; RESP 18; TEMP 36.7; O2SAT 99
[2025-07-26] MEDS: Potassium Chloride 10mEq/100mL 10 MEQ/100 ML IV.SOLN. 100 MEQ IV BOLUS ×4 (10:02→12:20)
[2025-07-26] MEDS: Nicotine (PBKC) 14 MG Patch TD (10:03)
[2025-07-26 10:04] VITALS: BP 151/73; PULSE 98
[2025-07-26] MEDS: BRIMONIDINE 0.2% 5ML BOTTLE 1 DRP OPHTHALMIC (10:04)
--- NOTE | 2025-07-26 11:01 | CASEMGMT ---
Social Work SW met w/pt in room, confirmed she does still want to go to [facility]. Pt aware she will likely go later today. Pt is interested in having home health after, SW explained that the c4 planner at [facility] will help her with this. Pt's friend Vita had called in, SW asked pt if it was okay to speak w/her friend, pt agreeable to this. SW called pt's friend Vita. SE let her know that the plan is to get pt to [facility] later today. She also asked about home health, SW also explained to her that this would be set up from [facility]. Vita states understanding. KYLE will continue to follow. MALIK Alvarado
--- NOTE | 2025-07-26 12:43 | TREXTCAR_ITS ---
Diet Diet Order/Speech Therapy: INPATIENT Hospital Diet / Speech Therapy Order(s) 07/25/25 14:25 Diet: Regular - General Food consistency:: Easy to Chew Liquid Consistency:: Regular/Thin Type of Dietary Supplement:: Ensure Plus High Protein Diet Comments: 240mL vanilla EPHP with all meals Speech Therapy Comments: Distant supervision, Alternate bites/sips Routine Orders/Code Status Enema Type: Fleetz Enema Frequency: Daily PRN Suppository Type: Dulcolax 10mg Suppository Frequency: Daily PRN DC O2, CPAP, BIPAP needs Home O2 Discharge instructions: Yes Type of respiratory needs?: Oxygen Oxygen frequency: Continuous Continuous oxygen liters per minute: 2 Therapies Weight Bearing: Weight bearing as tolerated Physical Therapy: Eval and Treat Occupational Therapy: Eval and Treat Problem/Diagnosis (1) Acute respiratory failure with hypoxia and hypercapnia: Status: Acute Code(s): J96.01 - Acute respiratory failure with hypoxia; J96.02 - Acute respiratory failure with hypercapnia (2) Pneumonia: Status: Acute Code(s): J18.9 - Pneumonia, unspecified organism Plan #Acute on chronic hypoxic respiratory failure * Patient extubated on 07/21/2025. * Thought to be due to acute exacerbation of COPD as well as heart failure and possible pneumonia. On empiric IV ceftriaxone and azithromycin. * Urine for strep and Legionella negative. Respiratory panel negative. * passed repeat swallow eval after failing the first one and is now on a modified diet. * On p.o. Lasix. On p.o. prednisone now. * completed a 7 day course of antibiotics * now down to 2L of oxygen which is her baseline * #Elevated troponin: * 2D echo showed EF of 55% and inferior hypokinesis. * Thought to be due to demand ischemia from hypertension and respiratory failure. No need for further workup now. #Hypertension * Was admitted with hypertensive emergency. Blood pressure is better controlled now. * Blood pressure was markedly elevated at 257/127 on admission and there were concerns of flash pulmonary edema. * She did require nicardipine drip during the admission. * oral meds resumed- on amlodipine 10 mg daily and metoprolol 25 mg twice daily. * IV hydralazine as needed. * #Hypokalemia: Potassium is 3.1 today. Replace and trend. #CAD s/p stents: On sublingual nitroglycerin. On aspirin daily and high intensity statin #History of AVNRT: * patient noted to be tachycardic. On metoprolol 25mg bid. * However, HR up to the 120s-140s. Will increase metoprolol to 50mg bid. * 2D echo from 07/16/2025 showed mild concentric LV hypertrophy and inferior hypokinesis with stage I diastolic dysfunction and estimated EF of 55% as well as aortic valve sclerosis without stenosis. * I thnk it is reasonable to get cardiology consult due to her persistent tachycardia and 2D echo findings. * In comparison, 2D echo from 12/27/2016 which is only previous echo on file showed mild focal apical segmental left ventricular dysfunction with preserved EF of 65%. 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 Currently stable. #Hyperlipidemia: On statin #Depression: On venlafaxine #History of glaucoma: On brimonidine and dorzolamide eyedrops DVT prophylaxis: Lovenox Disposition: Patient now agreeable to going to a snf. Case management on board.She did get precert today, but has remained tachycardic with HR going up to the 140s. Allergies/Procedures Done in Hospital Allergies No Known Allergies Allergy (Unverified 06/16/21 14:41) Procedures: 2-D Echocardiogram Type of Care/Length of Stay Estimated LOS: Convalescent Care Less Than 30 days Type of Care Needed: Skilled Rehab Potential: Fair Prognosis: Fair Additional Orders/Day of Discharge Day of Discharge: 07/26/25 Dietary and Speech Recommendations Dietitian Recommendations/Changes: Adjust to liberal regular diet due to low BMI. Will order 240ml vanilla EPHP TID with meals. Will monitor weight trends. Discharge Plan Admission Admit Date/Time: 07/16/25 06:21 Primary Reason for Your Visit: acute hypoxic respiratory failure due to COPD exacerbation Attending Provider: Renee Encarnacion Primary Care Provider: Melissa Ozuna NP Consulting Providers: Clarence Zuniga; Gerard Santos; Gregory Galvan; Danish Crawford; Earline Camargo; Analy Davis; Lakisha Dunn; Apple Bender; Marcos Alfredo; Mark Garrido; Nathan Bill; Eleazar Valle; Clarence Vo; Reid Murillo; Harpreet Gray; Cathie Cantu; Dmitri James; Ricardo Garcia; Kennedy Becerra; Laura Rodas; Ruth Altamirano; Deepa Blanco; Taran Garcia; Rufus Barker; Alonso Mcknight; Emmett Brown; Tess Dietrich; Coleen Tejada; Ramon Mckeon; Davon Mcguire; Catia Mercer; Mau Hoover; Kendall Doran Instructions Patient Instructions: COPD: Wheezing and Chest Tightness, Discharge Instructions: COPD Discharge Orders/Prescriptions Prescriptions: New prednisone 20 mg Tablet 40 mg PO BREAKFAST Qty: 2 0RF amlodipine 10 mg Tablet 10 mg PO DAILY Qty: 30 2RF metoprolol tartrate 50 mg Tablet 50 mg PO BID Qty: 60 2RF Continued nitroglycerin 0.4 mg tablet, sublingual 0.4 mg SUBLINGUAL Q5-15M PRN (Reason: chest pain) aspirin [Adult Low Dose Aspirin] 81 mg tablet,delayed release (DR/EC) 81 mg PO DAILY atorvastatin 40 mg tablet 40 mg PO QHS oxybutynin chloride 10 mg tablet extended release 24hr 10 mg PO DAILY albuterol sulfate [Ventolin HFA] 90 mcg/actuation HFA aerosol inhaler 2 puff INHALATION Q4H PRN (Reason: shortness of breath or wheezing) Qty: 8.5 6RF brimonidine 0.2 % drops ophthalmic (eye) dorzolamide 2 % drops 1 drp ophthalmic (eye) TID lisinopril 20 mg tablet 20 mg PO DAILY Qty: 90 3RF furosemide 40 mg tablet 40 mg PO DAILY clopidogrel 75 mg tablet 75 mg PO DAILY OXYGEN - Supplemental ([facility] INFORMATIONAL USE ONLY) Patient Comments: 2 LPM at all times Discontinued spironolactone 25 mg tablet 25 mg PO DAILY Referrals / Follow Up: Melissa Ozuna NP OPERATIONAL REVIEW SERGEANT-C [Primary Care Provider, [facility]] - Within 1 Week Adriana Wiggins NP-C [Med Staff - [facility] Prof, Pulmonology] - 08/26/25 1:15 pm Disposition Disposition (needs filled in before D/C Order can be placed): Snf Facility (2) Pneumonia Qualifiers: Pneumonia type: due to unspecified organism Laterality: bilateral Lung location: unspecified part of lung Qualified Code(s): J18.9 - Pneumonia, unspecified organism
--- NOTE | 2025-07-26 12:44 | PCM.DC.SUM ---
Providers Date of Admission: 07/16/25 Date of Discharge: 07/26/25 Primary Care Physician: SEUN Alvarez Consultations 07/16/25 07:56 Consult: Reinforced Concrete Inspector / Pulmonary Medicine Routine Consulting Provider: Intensivists/Pulmonary Med Reason for Consult: AE COPD, Resp Failure on Vent, AE CHF, Hypertensive Emergency and Sepsis. EMERGENT Consult: No MD Notified: Yes Date Notified: 07/16/25 Time Notified: 06:29 Method of Notification: ED Physician Initiated 07/22/25 08:00 Consult: Inpatient Palliative Care Routine Consulting Provider: Apple Carvalho Reason for Consult: Assist with management of air hunger/anxiety, goals of care EMERGENT Consult: No MD Notified: Yes Date Notified: 07/22/25 Time Notified: 08:00 Method of Notification: Text Comments:: Dr. Valle spoke with Apple. 07/24/25 08:51 Consult: Gastroenterology Routine Consulting Provider: [facility] Reason for Consult: dysphagia EMERGENT Consult: No MD Notified: Yes Date Notified: 07/24/25 Time Notified: 08:51 Method of Notification: Text 07/25/25 15:35 Consult: Cardiology Routine Consulting Provider: Kendall Doran Reason for Consult: persistent tachycardia, abnormal echo EMERGENT Consult: No MD Notified: Yes Date Notified: 07/25/25 Time Notified: 15:35 Method of Notification: Verbal Reason For Visit: AE COPD, [id number] RESP FAILURE Diagnosis Discharge Diagnosis (1) Acute respiratory failure with hypoxia and hypercapnia: Status: Acute Code(s): J96.01 - Acute respiratory failure with hypoxia; J96.02 - Acute respiratory failure with hypercapnia (2) Pneumonia: Status: Acute Code(s): J18.9 - Pneumonia, unspecified organism Qualifiers: Laterality: bilateral Lung location: unspecified part of lung Pneumonia type: due to unspecified organism Qualified Code(s): J18.9 - Pneumonia, unspecified organism Plan #Acute on chronic hypoxic respiratory failure Patient extubated on 07/21/2025. Thought to be due to acute exacerbation of COPD as well as heart failure and possible pneumonia. On empiric IV ceftriaxone and azithromycin. Urine for strep and Legionella negative. Respiratory panel negative. passed repeat swallow eval after failing the first one and is now on a modified diet. On p.o. Lasix. On p.o. prednisone now. completed a 7 day course of antibiotics now down to 2L of oxygen which is her baseline #Elevated troponin: 2D echo showed EF of 55% and inferior hypokinesis. Thought to be due to demand ischemia from hypertension and respiratory failure. No need for further workup now. #Hypertension Was admitted with hypertensive emergency. Blood pressure is better controlled now. Blood pressure was markedly elevated at 257/127 on admission and there were concerns of flash pulmonary edema. She did require nicardipine drip during the admission. oral meds resumed- on amlodipine 10 mg daily and metoprolol 25 mg twice daily. IV hydralazine as needed. #Hypokalemia: Potassium is 3.1 today. Replace and trend. #CAD s/p stents: On sublingual nitroglycerin. On aspirin daily and high intensity statin #History of AVNRT: patient noted to be tachycardic. On metoprolol 25mg bid. However, HR up to the 120s-140s. Will increase metoprolol to 50mg bid. 2D echo from 07/16/2025 showed mild concentric LV hypertrophy and inferior hypokinesis with stage I diastolic dysfunction and estimated EF of 55% as well as aortic valve sclerosis without stenosis. I thnk it is reasonable to get cardiology consult due to her persistent tachycardia and 2D echo findings. In comparison, 2D echo from 12/27/2016 which is only previous echo on file showed mild focal apical segmental left ventricular dysfunction with preserved EF of 65%. 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 Currently stable. #Hyperlipidemia: On statin #Depression: On venlafaxine #History of glaucoma: On brimonidine and dorzolamide eyedrops DVT prophylaxis: Lovenox Disposition: Patient now agreeable to going to a long term. Case management on board.She did get precert today, but has remained tachycardic with HR going up to the 140s. Medications at Discharge Home Medications aspirin 81 mg tablet,delayed release (Adult Low Dose Aspirin) 81 mg PO DAILY heart 07/08/19 atorvastatin 40 mg tablet 40 mg PO QHS cholestrol 07/08/19 nitroglycerin 0.4 mg sublingual tablet 0.4 mg sublingual Q5-15M PRN chest pain 07/08/19 oxybutynin chloride 10 mg tablet,extended release 24 hr 10 mg PO DAILY overactive bladd 07/08/19 albuterol sulfate 90 mcg/actuation aerosol inhaler (Ventolin HFA) 2 puff inhalation Q4H PRN shortness of breath or wheezing #8.5 grams 12/23/20 brimonidine 0.2 % eye drops ml ophthalmic (eye) eyes 06/16/21 dorzolamide 2 % eye drops 1 drp ophthalmic (eye) TID eyes 06/16/21 lisinopril 20 mg tablet 20 mg PO DAILY #90 tabs 06/16/21 clopidogrel 75 mg tablet 75 mg PO DAILY heart 07/17/25 furosemide 40 mg tablet 40 mg PO DAILY heart 07/17/25 OXYGEN - Supplemental ([facility] INFORMATIONAL USE ONLY) COPD 07/18/25 amlodipine 10 mg tablet 10 mg PO DAILY #30 tabs 07/26/25 metoprolol tartrate 50 mg tablet 50 mg PO BID #60 tabs 07/26/25 prednisone 20 mg tablet 40 mg (2 x 20 mg) PO BREAKFAST #2 tabs 07/26/25 Hospital Course Operations None Procedures 2-D Echocardiogram Summary of Care Provided Minutes Spent on Discharge: 45 Hospital Course: Patient is a 70-year-old female with an extensive past medical history as outlined was admitted to the ED on 07/16/2025 with a complaint of shortness of breath. His symptoms have been going on for several days prior to admission. On admission in the ED she was noted to have a markedly elevated blood pressure of 257/127. She was placed on BiPAP immediately in the ED but subsequently had to be intubated due to persistent respiratory distress. Lactic acid was elevated at 3.2 and WBC was 13.1. She was admitted to the ICU to be managed for acute on chronic hypoxic respiratory failure due to COPD exacerbation and pneumonia as well as hypertensive emergency. CTA of the chest done was negative for any evidence of PE and showed underlying female with superimposed interstitial edema and pneumonitis as well as free-flowing bilateral pleural effusions and bibasilar atelectasis. Critical care was consulted. Patient had a prolonged and protracted hospital course. She was placed on broad-spectrum antibiotics. She was subsequently extubated on 07/21/2025. She was diuresed with IV Lasix as well as IV Solu-Medrol and completed a 7-day course of antibiotics. 2D echo showed EF of 55% and inferior hypokinesis and elevated troponins were thought to be due to demand ischemia from the hypoxia. Blood pressure subsequently improved and she was resumed on her oral medication-amlodipine 10 mg daily and metoprolol 25 mg twice daily. Hospital course was also complicated by hypokalemia which was replaced aggressively. She was noted to be tachycardic during this admission with her heart rate going up to the 160s. Cardiology was consulted. However her heart rate subsequently normalized and she felt better. She was therefore continued on her metoprolol. She was discharged to senior living facility on 07/26/2025. She is follow-up with her primary care doctor within 1 to 2 weeks. Cardiology reviewed and thought she had multifocal atrial tachycardia but her heart rate was currently controlled on her metoprolol. Her metoprolol was increased to 50 mg twice daily on discharge. She was also discharged on p.o. prednisone 40 mg daily to complete a 5-day course. Patient seen and examined prior to discharge. She felt much better and had no complaints. She had an uneventful night. Review of systems otherwise negative. Labs and vitals reviewed. Home medication reviewed and reconciled. Physical Exam Const alert, oriented x3 and no apparent distress General Appearance: cooperative and comfortable HEENT normocephalic, head/scalp atraumatic, hearing grossly normal bilaterally, moist oral mucous membranes and oropharynx normal Mouth: oral and palatal mucosa normal Eyes PERRL, EOMs intact bilaterally and conjunctivae normal Neck no lymphadenopathy and supple Lymph Lymphatic: no lymphedema noted Resp Resp Narrative: mildly diminished breath sounds bibasally, no wheezes or crackles. On room air. Cardio regular rate, regular rhythm, S1 normal heart sound, S2 normal heart sound and no murmurs Cardio Narrative: tachycardia GI normal to inspection, nondistended, normoactive bowel sounds, soft to palpation, non-tender, non-distended and hepatosplenomegaly Extremity normal to inspection, full ROM, normal capillary refill and no clubbing, cyanosis or edema General Extremity: no tenderness to palpation of joints or extremities Skin no rashes or lesions noted General Skin Exam: no breakdown Neuro oriented x3, CN's II-XII intact bilaterally, moves all extremities, no focal motor deficits and no sensory deficits noted Sensorium / Orientation: awake and alert Motor Exam: general weakness Psych thought process normal Appearance: appropriate Weight / BMI Weight Weight: 100 lb 8.493 oz Body Mass Index (BMI) 17.2 ABG / Lab / Microbiology Data 07/26/25 05:55 07/26/25 05:55 Laboratory: Laboratory Results - last 24 hr 07/25/25 16:20: D-Dimer Quant (PE/DVT) 1.10 H* 07/25/25 17:12: POC Glucose 163 H 07/25/25 23:13: POC Glucose 114 H 07/26/25 05:46: POC Glucose 101 07/26/25 05:55: WBC 10.4, RBC 3.39 L, Hgb 9.6 L, Hct 28.6 L, MCV 84.4, MCH 28.3, MCHC 33.6, RDW Std Deviation 43.3, RDW Coeff of Shivam 14.0, Plt Count 482 H, MPV 9.6, Immature Gran % (Auto) 2.900 H, Neut % (Auto) 59.4, Lymph % (Auto) 27.0, [place] % (Auto) 9.7, Eos % (Auto) 0.9, Baso % (Auto) 0.1, Absolute Neuts (auto) 6.2, Absolute Lymphs (auto) 2.80, Nucleated RBC % 0, Sodium 135, Potassium 2.8 L, Chloride 96 L, Carbon Dioxide 25.7, Anion Gap 13, BUN 21 H, Creatinine 0.70, Estim Creat Clear Calc 46.43 L, Est GFR (MDRD) Non-Af 92, BUN/Creatinine Ratio 30.2 H, Glucose 98, Calcium 8.9, Magnesium 2.2 Microbiology: Microbiology 07/16/25 04:20 Blood Culture (Wb) - Left Hand Blood Culture - Final No growth in 5 days. 07/16/25 04:05 Blood Culture (Wb) - Right Hand Blood Culture - Final No growth in 5 days. 07/16/25 03:44 Urine, Catheterized Urine Culture - Final Culture exhibits no growth. 07/16/25 03:36 Sputum, Induced/[place] Gram Stain - Final 07/16/25 03:36 Sputum, Induced/[place] Respiratory Culture - Final Mixed normal respiratory renu. No Streptococcus pneumoniae, beta-hemolytic Streptococcus or Staphylococcus aureus isolated. 07/16/25 10:30 Nasal Secretion MRSA (PCR) - Final 07/16/25 09:20 Mucosa - Nasopharyngeal Respiratory Panel (PCR) - Final 07/16/25 08:25 Urine Catheter - [place] Legionella Antigen - Final 07/16/25 08:25 Urine Catheter - [place] Streptococcus pneumoniae Antigen (M - Final 07/16/25 03:44 Mucosa - Nose SARS-CoV-2, Influenza & RSV (PCR) - Final Radiography Diagnostic Testing: Radiology Impression Chest CTA 07/25/25 17:41 IMPRESSION: 1. No evidence of pulmonary embolism. 2. No focal lung consolidation. 3. Interval resolution of bilateral pleural effusions. 4. Atherosclerotic disease of the thoracic aorta. Reading Location: [id number] Instructions Discharge Activity: Return to Normal Activity Weight Bearing Status: Weight bearing as tolerated Call your doctor if you observe: Fever of 101 or Higher, Shortness of breath, Dizziness, Swelling in the ankles and Chest pain DC O2, CPAP, BIPAP Needs Home O2 Discharge instructions: Yes Type of respiratory needs?: Oxygen Oxygen frequency: Continuous Continuous oxygen liters per minute: 2 DC home with Oxygen: Yes Home O2 MD Review: I have reviewed the oxygen testing, and the patient qualifies for home oxygen equipment and portability. The patient is mobile in the home and the community. Meaningful Use Info Meaningful Use Meaningful Use Diagnoses (Choose all that apply): None applicable Discharge Plan Admission Admit Date/Time: 07/16/25 06:21 Primary Reason for Your Visit: acute hypoxic respiratory failure due to COPD exacerbation Attending Provider: Renee Encarnacion Primary Care Provider: Melissa Ozuna NP Consulting Providers: Clarence Zuniga; Gerard Santos; Gregory Galvan; Danish Crawford; Earline Camargo; Analy Davis; Lakisha Dunn; Apple Carvalho; Marcos Alfredo; Mark Garrido; Nathan Bill; Eleazar Valle; Clarence Vo; Reid Murillo; Harpreet Gray; Cathie Cantu; Dmitri James; Ricardo Garcia; Kennedy Becerra; Laura Rodas; Ruth Altamirano; Deepa Blanco; Taran Garcia; Rufus Barker; Alonso Mcknight; Emmett Brown; Tess Dietrich; Coleen Tejada; Ramon Mckeon; Davon Mcguire; Catia Mercer; Mau Hoover; Kendall Doran Instructions Patient Instructions: COPD: Wheezing and Chest Tightness, Discharge Instructions: COPD Discharge Orders/Prescriptions Prescriptions: New prednisone 20 mg Tablet 40 mg PO BREAKFAST Qty: 2 0RF amlodipine 10 mg Tablet 10 mg PO DAILY Qty: 30 2RF metoprolol tartrate 50 mg Tablet 50 mg PO BID Qty: 60 2RF Continued nitroglycerin 0.4 mg tablet, sublingual 0.4 mg SUBLINGUAL Q5-15M PRN (Reason: chest pain) aspirin [Adult Low Dose Aspirin] 81 mg tablet,delayed release (DR/EC) 81 mg PO DAILY atorvastatin 40 mg tablet 40 mg PO QHS oxybutynin chloride 10 mg tablet extended release 24hr 10 mg PO DAILY albuterol sulfate [Ventolin HFA] 90 mcg/actuation HFA aerosol inhaler 2 puff INHALATION Q4H PRN (Reason: shortness of breath or wheezing) Qty: 8.5 6RF brimonidine 0.2 % drops ophthalmic (eye) dorzolamide 2 % drops 1 drp ophthalmic (eye) TID lisinopril 20 mg tablet 20 mg PO DAILY Qty: 90 3RF furosemide 40 mg tablet 40 mg PO DAILY clopidogrel 75 mg tablet 75 mg PO DAILY OXYGEN - Supplemental ([facility] INFORMATIONAL USE ONLY) Patient Comments: 2 LPM at all times Discontinued spironolactone 25 mg tablet 25 mg PO DAILY Referrals / Follow Up: Melissa Ozuna NP, SHIPPING RECEIVING MANAGER-C [Primary Care Provider, [facility]] - Within 1 Week Adriana Wiggins NP-C [Med Staff - [facility], [facility]–1983 Practice Prof, Pulmonology] - 08/26/25 1:15 pm Disposition Disposition (needs filled in before D/C Order can be placed): [facility] Facility Charges/Coding Visit Charges Inpatient E&M: 39479 Disch Hosp >30min
--- NOTE | 2025-07-26 12:55 | CASEMGMT ---
Social Work SW completed the hospital exemption form in the [employer] system, copy placed in chart and one in packet to go to the SNF. The unit controller is setting up the d/c to [facility]. MALIK Alvarado
[2025-07-26 13:37] VITALS: BP 140/82; PULSE 72; RESP 18; TEMP 36.1; O2SAT 100
--- NOTE | 2025-07-26 16:09 | CON.PCM.CA_ITS ---
Assessment & Plan Assessment/Plan (1) Multifocal atrial tachycardia: PLAN: Patient's heart rate is currently controlled. Continue current medications at this time. She can follow-up with [facility] as an outpatient. HPI Consult Data Date of Consult: 07/26/25 HPI Narrative Reason for Consultation: Tachycardia HPI Narrative: ZABRINA HSU, is a 70 F who presented with respiratory failure. She has improved and cardiology consult was requested as she was having episodes of tachycardia. Telemetry was reviewed and it appears that she was having multifocal atrial tachycardia during these episodes. Underlying rhythm appears to be wandering atrial pacemaker. Her metoprolol was increased and she has responded well to this with improvement in her heart rate. [ ] [facility] Medical History 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 Non-rheumatic mitral regurgitation Depression Anxiety Pulmonary hypertension Essential hypertension Pure hypercholesterolemia Atherosclerotic heart disease of [place] coronary artery without angina pectoris Home Medications ?Medication ?Instructions ?Recorded ?Last Taken ?Type aspirin 81 mg tablet,delayed 81 mg PO DAILY heart 06/23 04/10 Unknown History release (Adult Low Dose Aspirin) atorvastatin 40 mg tablet 40 mg PO QHS cholestrol 06/23 04/10 Unknown History nitroglycerin 0.4 mg sublingual 0.4 mg sublingual Q5-1 5M PRN chest 07/08/19 Unknown History tablet pain oxybutynin chloride 10 mg 10 mg PO DAILY overactive bl add 07/08/19 Unknown History tablet,extended release 24 hr albuterol sulfate 90 mcg/actuation 2 puff inhalation Q 4H PRN 12/23/20 Unknown Rx aerosol inhaler (Ventolin HFA) shortness of breath or wheezing #8.5 grams brimonidine 0.2 % eye drops ml ophthalmic (eye) eyes 0 06/16/21 Unknown History dorzolamide 2 % eye drops 1 drp ophthalmic (eye) TID e yes 06/16/21 Unknown History lisinopril 20 mg tablet 20 mg PO DAILY #90 tabs 05/24 03/12 Unknown Rx clopidogrel 75 mg tablet 75 mg PO DAILY heart 5 Unknown History furosemide 40 mg tablet 40 mg PO DAILY heart 5 Unknown History OXYGEN - Supplemental ([facility] COPD 07/18/25 Unknown Histo ry INFORMATIONAL USE ONLY) amlodipine 10 mg tablet 10 mg PO DAILY #30 tabs 02/14 Unknown Rx metoprolol tartrate 50 mg tablet 50 mg PO BID #60 tabs 07/26/25 Unknown Rx prednisone 20 mg tablet 40 mg (2 x 20 mg) PO BREAKFA ST #2 07/26/25 Unknown Rx tabs Allergy/AdvReac Type Severity Reaction Status Date / Time No Known Allergies Allergy Unverified 06/16/21 14:41 Family History Mother Diabetes Surgical History History of coronary artery stent placement (01/02/17) History of hysterectomy Social History Smoking Status: Current every day smoker tobacco type: cigarettes Tobacco: How many years used: 46 second hand exposure: Yes alcohol intake: never substance use type: does not use caffeine: Yes Type: coffee Physical Exam Const alert and oriented x3 HEENT normocephalic Eyes no scleral icterus Resp normal respiratory effort Objective Data Vital Signs: Vital Signs Temp Pulse Resp BP Pulse Ox O2 Del Method O2 Flow Rate 97 F L 72 18 140/82 H 100 Room Air 2 07/26/25 13:37 07/26/25 13:37 07/26/25 13:37 07/26/25 13:37 07/26/25 13:37 07/26/25 13:37 07/24/25 16:39 FiO2 99 07/23/25 07:25 Oxygen Flow Rate (L/min) 2 Oxygen Delivery Method Room Air Weight: 100 lb 8.493 oz Body Mass Index (BMI) 17.2 Intake & Output: Intake and Output for Last 24 Hours 07/24/25 07/25/25 07/26/25 23:59 23:59 23:59 Intake Total 355 / 355 Output Total 450 / 450 Balance -450 / -450 355 / 355 Lab / Micro Data 07/26/25 05:55 07/26/25 05:55 Labs: Laboratory Results - last 24 hr 07/25/25 16:20: D-Dimer Quant (PE/DVT) 1.10 H* 07/25/25 17:12: POC Glucose 163 H 07/25/25 23:13: POC Glucose 114 H 07/26/25 05:46: POC Glucose 101 07/26/25 05:55: WBC 10.4, RBC 3.39 L, Hgb 9.6 L, Hct 28.6 L, MCV 84.4, MCH 28.3, MCHC 33.6, RDW Std Deviation 43.3, RDW Coeff of Shivam 14.0, Plt Count 482 H, MPV 9.6, Immature Gran % (Auto) 2.900 H, Neut % (Auto) 59.4, Lymph % (Auto) 27.0, [place] % (Auto) 9.7, Eos % (Auto) 0.9, Baso % (Auto) 0.1, Absolute Neuts (auto) 6.2, Absolute Lymphs (auto) 2.80, Nucleated RBC % 0, Sodium 135, Potassium 2.8 L , Chloride 96 L, Carbon Dioxide 25.7, Anion Gap 13, BUN 21 H, Creatinine 0.70, E stim Creat Clear Calc 46.43 L, Est GFR (MDRD) Non-Af 92, BUN/Creatinine Ratio 30.2 H, Glucose 98, Calcium 8.9, Magnesium 2.2 Rhythm Strip Rhythm Strip: Sinus Tach Rate: 114 Cardiology Labs/Tests 07/25/25 16:20: D-Dimer Quant (PE/DVT) 1.10 H* 07/26/25 05:55: WBC 10.4, RBC 3.39 L, Hgb 9.6 L, Hct 28.6 L, MCV 84.4, MCH 28.3, MCHC 33.6, Plt Count 482 H, MPV 9.6, Immature Gran % (Auto) 2.900 H, Neut % (Auto) 59.4, Lymph % (Auto) 27.0, [place] % (Auto) 9.7, Eos % (Auto) 0.9, Baso % (Auto) 0.1, Absolute Neuts (auto) 6.2, Nucleated RBC % 0, Sodium 135, Potassium 2.8 L, Chloride 96 L, Carbon Dioxide 25.7, Anion Gap 13, BUN 21 H, Creatinine 0.70, Est GFR (MDRD) Non-Af 92, BUN/Creatinine Ratio 30.2 H, Glucose 98, Calcium 8.9, Magnesium 2.2 Rhythm: EKG: ECHO: Stress Test: Cardiac Cath: PCI: CT Surgery: Holter monitor: EPS: PPM: CXR: Chest CT Scan: Radiography Diagnostic Testing: Radiology Impression Chest CTA 07/25/25 17:41 IMPRESSION: 1. No evidence of pulmonary embolism. 2. No focal lung consolidation. 3. Interval resolution of bilateral pleural effusions. 4. Atherosclerotic disease of the thoracic aorta. Reading Location: [id number] Risk Score for UA/STEMI Assesmment (YES = 1) Risk Stratification Applicable: No
== END 2025-07-26 16:01 | disposition skilled nursing facility (03) | DRG 207 ==
LOC: ED 07:26 → ICU 07:31 → PCU 07-24 16:59
PROVIDERS: Family Medicine; Internal Medicine Critical Care Medicine; Admitting Provider Internal Medicine; Emergency Provider Emergency Medicine; PCP Nurse Practitioner Family; Visit Provider Student in an Organized Health Care Education/Training Program
DX: J96.02 Acute respiratory failure with hypercapnia (principal); J81.0 Acute pulmonary edema; I50.31 Acute diastolic (congestive) heart failure; J18.9 Pneumonia, unspecified organism; I16.1 Hypertensive emergency; E87.20 Acidosis, unspecified; J44.0 Chronic obstructive pulmonary disease with (acute) lower respiratory infection; J90 Pleural effusion, not elsewhere classified; J44.1 Chronic obstructive pulmonary disease with (acute) exacerbation; J98.11 Atelectasis; I27.20 Pulmonary hypertension, unspecified; Z51.5 Encounter for palliative care; I11.0 Hypertensive heart disease with heart failure; F32.A Depression, unspecified; I70.0 Atherosclerosis of aorta; I34.81 Nonrheumatic mitral (valve) annulus calcification; J96.01 Acute respiratory failure with hypoxia; M19.90 Unspecified osteoarthritis, unspecified site; E78.00 Pure hypercholesterolemia, unspecified; I25.10 Atherosclerotic heart disease of native coronary artery without angina pectoris; F17.210 Nicotine dependence, cigarettes, uncomplicated; F41.9 Anxiety disorder, unspecified; E87.6 Hypokalemia; I35.8 Other nonrheumatic aortic valve disorders; H40.9 Unspecified glaucoma; Z79.899 Other long term (current) drug therapy; R74.01 Elevation of levels of liver transaminase levels; Z90.710 Acquired absence of both cervix and uterus; Z95.5 Presence of coronary angioplasty implant and graft; Z79.82 Long term (current) use of aspirin; R73.9 Hyperglycemia, unspecified; Z79.891 Long term (current) use of opiate analgesic; Z79.52 Long term (current) use of systemic steroids; Z81.8 Family history of other mental and behavioral disorders; R00.0 Tachycardia, unspecified
CPT/HCPCS: 31500; 31720; 36415; 36600; 70450; 71045; 71275; 74176; 74230; 80048; 80053; 80061; 80074; 80202; 81001; 82550; 82803; 82962; 83036; 83605; 83735; 83880; 84100; 84478; 84484; 85025; 85379; 87040; 87070; 87086; 87205; 87449; 87631; 87633; 87641; 92526; 92610; 92611; 93005; 93306; 94002; 94003; 94640; 94660; 94668; 94762; 97116; 97162; 97166; 97530; 97535; 97803; 99252; 99285; Q9957; Q9967; A4216; G0463; J0330; J1938; J2405

== ENCOUNTER 2025-10-02 22:50 | Inpatient (IN) | payer MEDICARE, SELFPAY ==
[2025-10-02] VITALS (7 sets, daily range): BP systolic 150; BP diastolic 98; PULSE 117–136; RESP 12–38; TEMP 36.4; O2SAT 87–100; BMI 20.6
--- NOTE | 2025-10-02 22:54 | EKG12_ITS ---
Test Reason : DYSRHYTHMIA Blood Pressure : */* mmHG Vent. Rate : 142 BPM Atrial Rate : * BPM P-R Int : * ms QRS Dur : 78 ms QT Int : 328 ms P-R-T Axes : * 77 70 degrees QTcB Int : 504 ms Critical Test Result: High HR Atrial fibrillation with rapid ventricular response Marked ST abnormality, possible anterior subendocardial injury Abnormal ECG Confirmed by BENNIE PAREDES, NINFA ([id number]), newspaper managing editor CHRISTOS GERARDO ([id number]) on 10/06/2025 6:32:21 AM Referred By: Confirmed By: NINFA AVERY MD
--- NOTE | 2025-10-02 23:13 | EDS_ITS ---
HPI History of Present Illness Chief Complaint: Shortness of Breath Narrative Narrative: Patient was seen and examined after presenting to ED for respiratory distress coming from home she normally wears 4 L nasal cannula has a history of both COPD and heart failure not on anticoagulation. 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 Non-rheumatic mitral regurgitation Depression Anxiety Pulmonary hypertension Essential hypertension Pure hypercholesterolemia Atherosclerotic heart disease of [place] coronary artery without angina pectoris Home Medications ?Medication ?Instructions ?Recorded ?Last Taken ?Type aspirin 81 mg tablet,delayed 81 mg PO DAILY heart 06/23 04/10 Unknown History release (Adult Low Dose Aspirin) atorvastatin 40 mg tablet 40 mg PO QHS cholestrol 06/23 04/10 Unknown History nitroglycerin 0.4 mg sublingual 0.4 mg sublingual Q5-1 5M PRN chest 07/08/19 Unknown History tablet pain oxybutynin chloride 10 mg 10 mg PO DAILY overactive bl add 07/08/19 Unknown History tablet,extended release 24 hr albuterol sulfate 90 mcg/actuation 2 puff inhalation Q 4H PRN 12/23/20 Unknown Rx aerosol inhaler (Ventolin HFA) shortness of breath or wheezing #8.5 grams brimonidine 0.2 % eye drops 1 drp ophthalmic (eye) ROCCO LY eyes 06/16/21 Unknown History dorzolamide 2 % eye drops 1 drp ophthalmic (eye) TID e yes 06/16/21 Unknown History lisinopril 20 mg tablet 20 mg PO DAILY #90 tabs 05/24 03/12 Unknown Rx clopidogrel 75 mg tablet 75 mg PO DAILY heart 5 Unknown History furosemide 40 mg tablet 40 mg PO DAILY heart 5 Unknown History OXYGEN - Supplemental ([facility] COPD 07/18/25 Unknown Histo ry INFORMATIONAL USE ONLY) amlodipine 10 mg tablet 10 mg PO DAILY #30 tabs 02/14 Unknown Rx metoprolol tartrate 50 mg tablet 50 mg PO BID #60 tabs 07/26/25 Unknown Rx prednisone 20 mg tablet 40 mg (2 x 20 mg) PO BREAKFA ST #2 07/26/25 Unknown Rx tabs potassium chloride 20 mEq 20 meq PO BID 10/03/25 Unkno wn History tablet,extended release(part/cryst) Allergy/AdvReac Type Severity Reaction Status Date / Time No Known Allergies Allergy Verified 10/02/25 22:59 Family History Mother Diabetes Father No problems noted. Surgical History History of coronary artery stent placement (01/02/17) History of hysterectomy Social History household members: spouse Smoking Status: Current every day smoker tobacco type: cigarettes Tobacco: How many years used: 46 second hand exposure: Yes alcohol intake: never substance use type: does not use caffeine: Yes Type: coffee ROS ROS ED ROS Narrative Pertinent Positives: Shortness of breath COPD with chronic respiratory failure on 4 L at baseline Pertinent Negatives: Chest pain pressure fevers vomiting history of DVT or PE use of anticoagulation The remainder of review of systems negative unless otherwise stated in the HPI above. Systems reviewed including constitutional, psychiatric, cardiovascular, respiratory, integument, HENT, gastrointestinal. EXAM Physical Exam Narrative Exam Narrative: Patient is afebrile but she is tachycardic and tachypneic she has subtle wheezing but really tight overall very diminished breath sounds she has intact and equal MSPs in her extremities she is diaphoretic no lower extremity edema or calf tenderness. Const Vital Signs: 10/02/25 22:51 10/02/25 22:54 10/02/25 22:57 Temperature 97.5 F L Temperature Source Temporal Pulse Rate 117 H 130 H Respiratory Rate 29 H 38 H Respiratory Effort Respiratory Pattern Tachypnea Blood Pressure Blood Pressure Mean Pulse Ox 87 92 Oxygen Delivery Method Nasal Cannula Bi-pap Oxygen Flow Rate (L/min) 4 Fraction of Inspired Oxygen (FIO2) 50 10/02/25 23:00 10/02/25 23:01 10/02/25 23:02 Temperature 97.5 F L Temperature Source Axillary Pulse Rate 128 H 128 H Respiratory Rate 14 33 H Respiratory Effort Short of Breath Labored Accessory Muscle Use Respiratory Pattern Gasping Blood Pressure 150/98 H Blood Pressure Mean 115 Pulse Ox 100 96 Oxygen Delivery Method Bi-pap Bi-pap Bi-pap Oxygen Flow Rate (L/min) Fraction of Inspired Oxygen (FIO2) 10/02/25 23:28 10/02/25 23:31 10/02/25 23:40 Temperature Temperature Source Pulse Rate 131 H 136 H 130 H Respiratory Rate 33 H 20 H 32 H Respiratory Effort Respiratory Pattern Tachypnea Tachypnea Blood Pressure 150/98 H Blood Pressure Mean 115 Pulse Ox 98 94 Oxygen Delivery Method Bi-pap Oxygen Flow Rate (L/min) Fraction of Inspired Oxygen (FIO2) 50 10/03/25 00:00 10/03/25 00:37 Temperature Temperature Source Pulse Rate 132 H 134 H Respiratory Rate 22 H 25 H Respiratory Effort Respiratory Pattern Blood Pressure 171/139 H 196/158 H Blood Pressure Mean 149 170 Pulse Ox 96 97 Oxygen Delivery Method Bi-pap Bi-pap Oxygen Flow Rate (L/min) Fraction of Inspired Oxygen (FIO2) MDM MDM MDM Narrative Medical decision making narrative: Nursing notes, triage notes, available previous documentation, and vital signs were reviewed. Any discrepancies noted were addressed. Differential Diagnoses: Could be a COPD exacerbation lower suspicion for heart failure but still needs to be consideration could be pneumonia could be PE but lower suspicion for the PE itself Interventions: BiPAP methylprednisolone and DuoNebs ketamine Antibiotics Given: Ceftriaxone Labs Reviewed: No electrolyte abnormality creatinine is 1.2 lactic acid is elevated at 5.5 but likely because of her hypoxia distress no significant transaminitis troponin was slightly elevated at 31 with a proBNP of 26 negative flu COVID RSV. ABG showed 7.18 pH with a pCO2 in the 80s. Repeat VBG is improved with a pH of 7.33 with a pCO2 of 63 Imaging Reviewed: Personally reviewed and interpreted by me: Chest x-ray reviewed at the bedside appears to be rather fibrotic may be evidence of pneumonia as well EKG: Atrial fibrillation rate 142. EKG interpretation is noted and agreed to in the EMR. The interpretation of this patient's EKG contributed directly to the care and management of this patient. Previous Documentation Reviewed: None available or applicable at this time. ED Course: Patient presenting with intermittent shortness of breath that she is diaphoretic she is in respiratory distress she is very diminished breath sounds bilaterally patient on Monday some wheezing, patient will be given breathing treatments steroids I started her on BiPAP for her increased work of breathing. Most likely plan for admission. Patient was given ketamine to calm down some of her anxiety with her breathing she tolerated that well her blood gas did improve I had [id number] discussions with hospitalist Dr. Wolf who is agreeable to admitting this patient to the ICU patient was given ceftriaxone for some infectious changes on her x-ray. Patient was not given medications for atrial fibrillation with RVR because it is secondary to her ongoing respiratory status. I also did not provide her with IV fluids because of her history of heart failure and with the bedside ultrasound that I performed she did have some B-lines on the ultrasound that would be consistent with some pulmonary edema. 45 minutes of critical care time utilized in managing the patient. This is due to high probability of and deterioration of the patient based on the patient's condition and excludes any separately billable procedures. This note was made utilizing voice recognition software. All attempts were made to correct spelling or other errors prior to note completion. However, due to the fast-paced nature of emergency medicine, some errors may still be present. Lab Data Labs: Laboratory Results - last 24 hr 10/02/25 10/02/25 23:00 23:09 WBC 14.2 H RBC 4.69 Hgb 12.7 Hct 40.4 MCV 86.1 MCH 27.1 MCHC 31.4 L RDW Std Deviation 50.8 H RDW Coeff of Shivam 16.1 H Plt Count 481 H MPV 10.1 Immature Gran % (Auto) 0.300 Neut % (Auto) 34.7 L Lymph % (Auto) 53.4 H [place] % (Auto) 8.7 Eos % (Auto) 2.0 Baso % (Auto) 0.9 Absolute Neuts (auto) 4.9 Absolute Lymphs (auto) 7.60 H Total Counted 100 Neutrophils % (Manual) 40 L Lymphocytes % (Manual) 55 H Monocytes % (Manual) 4 Basophils % (Manual) 1 Nucleated RBC % 0 Differential Comment SCANNED Sodium 135 Potassium 3.6 Chloride 91 L Carbon Dioxide 24.6 Anion Gap 20 H BUN 26 H Creatinine 1.23 H Estim Creat Clear Calc 36.16 L Est GFR (MDRD) Non-Af 47 L BUN/Creatinine Ratio 21.2 H Glucose 192 H Lactic Acid 5.5 H* Calcium 9.4 Total Bilirubin 0.31 AST 39 H ALT 27 Alkaline Phosphatase 112 H Troponin T High Sens 31 H D NT pro BNP II 2610 H Total Protein 8.1 Albumin 4.3 Globulin 3.7 Albumin/Globulin Ratio 1.2 ABG Data ABG results: ABG 10/02/25 10/03/25 23:20 01:20 Specimen Type ART JACQUI Sample Site L Radial Not entered pH 7.15 L* Bicarbonate Actual 27.5 H Total CO2 30 Base Excess -1 O2 Saturation 91 L O2 % 50.0 40.0 ABG pCO2 79.4 H* ABG pO2 80 VBG pH 7.33 VBG pO2 41 H VBG HCO3 33 H VBG Total CO2 35 H VBG O2 Sat (Calc) 71 H VBG Base Excess 7 H POC Mix VBG pCO2 Pt Tmp 62.9 H Respiration Rate 12 14 O2 Delivery Device BiPAP BiPAP Vent Mode Not entered Tidal Volume 550.0 POC PEEP 8 8 Peak Inspir Pressure 16 Crit Call To/Read Back Yes Blood Gas Notified Whom Dr Albarran Blood Gas Notified Time 23:23:35 Clinical Comments [facility] Radiography Diagnostic Testing: Clinical Impression(s) from Imaging Studies Chest X-Ray 10/02/25 23:35 IMPRESSION: Moderate-advanced chronic interstitial emphysematous lung changes, with diffuse hazy airspace opacities which may reflect a superimposed infectious/inflammatory process. Reading Location: [facility] Discharge Plan Triage Chief Complaint: Shortness of Breath ED Provider: Sarahy Albarran Dx/Rx/DC Orders Clinical Impression: Acute on chronic respiratory failure with hypoxia and hypercapnia, Pneumonia, Heart failure, Elevated troponin level not due myocardial infarction Prescriptions: No Action nitroglycerin 0.4 mg tablet, sublingual 0.4 mg SUBLINGUAL Q5-15M PRN (Reason: chest pain) aspirin [Adult Low Dose Aspirin] 81 mg tablet,delayed release (DR/EC) 81 mg PO DAILY atorvastatin 40 mg tablet 40 mg PO QHS oxybutynin chloride 10 mg tablet extended release 24hr 10 mg PO DAILY albuterol sulfate [Ventolin HFA] 90 mcg/actuation HFA aerosol inhaler 2 puff INHALATION Q4H PRN (Reason: shortness of breath or wheezing) Qty: 8.5 6RF brimonidine 0.2 % drops 1 drp ophthalmic (eye) DAILY dorzolamide 2 % drops 1 drp ophthalmic (eye) TID lisinopril 20 mg tablet 20 mg PO DAILY Qty: 90 3RF furosemide 40 mg tablet 40 mg PO DAILY clopidogrel 75 mg tablet 75 mg PO DAILY OXYGEN - Supplemental ([facility] INFORMATIONAL USE ONLY) Patient Comments: 2 LPM at all times prednisone 20 mg Tablet 40 mg PO BREAKFAST Qty: 2 0RF amlodipine 10 mg Tablet 10 mg PO DAILY Qty: 30 2RF metoprolol tartrate 50 mg Tablet 50 mg PO BID Qty: 60 2RF potassium chloride 20 mEq tablet,ER particles/crystals 20 meq PO BID Primary Care Provider: Melissa Ozuna NP Referrals: Melissa Ozuna NP, [employer] [Primary Care Provider, [facility]] Print Language: Indonesian
[2025-10-02 23:15] LABS: Hematocrit 40.4 % (37-47); Hemoglobin 12.7 g/dL (12.0-15.0); Immature Granulocytes Count 0.040 X10^3/uL (0.0-0.0); Mean Corp Hgb Conc 31.4 g/dL (32-36); Mean Corpuscular Volume 86.1 fL (81-99); Mean Platelet Vol. 10.1 fl (6.2-12.0); NRBC Flagged by Analyzer 0 % (0-5); POSITIVE DIFFERENTIAL YES; Platelet Count 481 K/mm3 (150-450); RBC Distribution Width CV 16.1 % (11.6-14.6); RBC Distribution Width SD 50.8 fl (35.1-43.9); Red Blood Count 4.69 M/mm3 (4.2-5.4); White Blood Count 14.2 K/mm3 (4.4-11.0)
--- OUTSIDE RECORDS SUMMARY | 2025-10-02 23:19 | XMS RPT_ITS | CCD ---
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 Name Role Phone Oapl Brambila Alpa Unavailable Unavailable FERCHO VILLASEÑOR Primary Care Physician Marissa Rounding Nurse, Amaury Unavailable Barb Ernandez Unavailable Unavailable Elvni Blanc PA-C Primary Care Provider [phone] Fercho Villaseñor DO Unavailable JACK CARMICHAEL DO Attending Unavailable JACK CARMICHAEL DO Attending Unavailable DO FERCHO VILLASEÑOR Primary Care Unavailab BRONWYN Upton MD Consulting Unavailable DOC PERERA Attending Unavailable ANNEI PAREDES, JHONNY Admitting Unavailable DOC PERERA Consulting Unavailable ROSINA BRO MD Consulting Unavailable TONG ROBB MD Consulting Unavailable Marizol JOHNSON-Kenzie CHEN Primary Care Provider ALFONSO POLLARD Primary Care Physician ANNIE PAREDES, JHONNY Admitting Unavailable DR MERCEDES CARTER MD Attending Unavailable EMILIO DERAS MD Consulting Unavailable LAITH JOHNSON-ALFONSO CHEN Primary Care Unavailteofilo BRO MD, ROSINA Consulting Unavailable ROXIE MOREJON, JACQUELINE Red Consulting Unavailable ANNIE PAREDES, JHONNY Admitting Unavailable APPI BAXTER MD Attending Unavailab radha SANTIAGO MD, DR GAN Consulting Unavailable ALFONSO POLLARD Primary Care UnavailGENNY Escudero MD Consulting Unavailable DIEUDONNE PAREDES, ROSINA Consulting Unavailable KENNEDY HAMILTON MD Consulting Unavailable DOLORES PAREDES, OWEN Consulting Unavailable KENZIE FONTANA Attending Unavailable KENZIE FONTANA Primary Care Unavailable Laith GEOSCIENTIST-C, Alfonso Primary Care Physician [phone] Dr. Bernardo Sharif DO Emergency Department Physi sarah Zuniga DO, Dr. Santiago Admitting Physician Candy vailable Zuniga DO, Dr. Santiago Nurse Practitioner Unav ailable Juni PAREDES, Dr. Rodríguez Nurse Practitioner [phone] Radhika PAREDES, Dr. Flores Nurse Practitioner [phone] Fly PAREDES, Dr. Evans Nurse Practitioner Leonard GONG, Dr. Bush Nurse Practitioner Tavo PAREDES, Dr. Jack Chacko Nurse Practitioner [phone] Lidia PAREDES, Dr. Mathews Nurse Practitioner Marina PAREDES, Dr. Mullins Nurse Practitioner [phone] Alondra PAREDES, Dr. Brand Nurse Practitioner Jacob PAREDES, Dr. Rizvi Nurse Practitioner [phone] Jose PAREDES, Dr. Silva Nurse Practitioner [phone] Hernan PAREDES, Dr. Benavides Nurse Practitioner [phone] Dr. Laura Rodas MD Nurse Practitioner [phone] Adarsh PAREDES, Dr. Miranda Nurse Practitioner Unavail alexandria Blanco MD, Dr. Arenas Nurse Practitioner [phone] Jose PAREDES, Dr. Chirinos Nurse Practitioner [phone] Lucero PAREDES, Dr. Hooper Nurse Practitioner Juan Luis PAREDES, Dr. Gupta Nurse Practitioner [phone] Stephanie GONG, Dr. Christine Nurse Practitioner Kaur PAREDES, Dr. Pulido Nurse Practitioner [phone] Terrell PAREDES, Dr. Horne Nurse Practitioner Linda GONG, Dr. Navarro Nurse Practitioner [phone] Maynor PAREDES, Dr. Mays Nurse Practitioner Ruslan PAREDES, Dr. Bardales Nurse Practitioner Kiko PAREDES, Dr. León Nurse Practitioner Alysha PAREDES, Dr. Renee Rossi Attending Physician Danielle GONG, Dr. Gee Nurse Practitioner Maia GEOSCIENTIST-C, Apple Nurse Practitione r Leonard GONG, Dr. Bush Attending Physician Kuldip PAREDES, Dr. Tamez Attending Physician Danielle GONG, Dr. Gee Attending Physician Alysha PAREDES, Dr. Renee Rossi Nurse Practitioner Maia GEOSCIENTIST-C, Apple Attending Physici an Cole PAREDES, Dr. Jenkins Nurse Practitioner Yvette GONG, Dr. Peng Nurse Practitioner Raman GEOSCIENTIST-C, Earline Nurse Practitioner Doc GEOSCIENTIST-C, Analy Nurse Practitioner Lakisha Orozco Nurse Practitioner Espinoza PAREDES, Dr. Argueta Nurse Practitioner Dr. Gerard Santos DO Referring Provider Alysha PAREDES, Dr. Renee Rossi Referring Provider Espinoza PAREDES, Dr. Argueta Attending Physician Jack Zuniga Admitting Unavailable Gerard Santos Attending Unavailable Laith GEOSCIENTIST, Alfonso Primary Care Unavailable Marcos Alfredo Consulting Unavailable Mark Garrido Consulting Unavailable Nathan Bill Consulting Unavailable Eleazar Valle Consulting Unavailable Jack Vo Consulting Unavailable Reid Murillo Consulting Unavailable Harpreet Gary Consulting Unavailable Cathie Cantu Consulting Unavailab le Wond, Dmitri Consulting Unavailable Ricardo Garcia Consulting Unavailable Kennedy Becerra Consulting Unavailable Clark, Laura Consulting Unavailable Aljunprasanth, Lamia Consulting Unavailable Blanco, Deepa Consulting Unavailable Mina Garciam Consulting Unavailable Rufus Barker Consulting Unavailable Alonso Mcknight Consulting Unavailable Emmett Brown Consulting Unavailable Tess Dietrich Consulting Unavailable Coleen Tejada Consulting Unavailable Ramon Mckeon Consulting Unavailable Davon Mcguire Consulting Unavailable Catia Mercer Consulting UnavailMau Lopez Consulting Unavailable Jack Zuniga Consulting Unavailable Gerard Santos Consulting Unavailable Eleazar Valel Attending Unavailable Gerard Santos Referring Unavailable Renee Encarnacion Consulting Unavailable Renee Encarnacion Attending Unavailable Renee Encarnacion Referring Unavailable Apple Carvalho Consulting Apple Lester Attending Gregory Washington Consulting Unavailable Danish Crawford Consulting Unavailable Earline Camargo Consulting Unavailable Analy Davis Consulting Unavailable Lakisha Dunn Consulting Unavailable Espinoza Nagapradee Consulting Unavailsonu Ozuna GEOSCIENTIST, Alfonso Primary Care Unavailable Dashawn Christiansen Attending Unavailable Laith GEOSCIENTIST, Alfonso Primary Care Unavailable Laith GEOSCIENTIST, Alfonso Referring Unavailable Adriana Wiggins Attending Unavailable Laith GEOSCIENTIST, Alfonso Primary Care Unavailable Jack Zuniga Admitting Unavailable Renee Encarnacion Attending Unavailable Jack Zuniga Consulting Unavailable Gerard Santos Consulting Unavailable Gregory Galvan Consulting Unavailable Danish Crawford Consulting Unavailable Earline Camargo Consulting Unavailable Analy Davis Consulting Unavailable Lakisha Dunn Consulting Unavailable Apple Carvalho Consulting Marcos Kent Consulting Unavailable Mark Garrido Consulting Unavailable Nathan Bill Consulting Unavailable Eleazar Valle Consulting Unavailable Jack Vo Consulting Unavailable Reid Murillo Consulting Unavailable Harpreet Gray Consulting Unavailable Cathie Cantu Consulting Unavailab le Dand, Dmitri Consulting Unavailable Ricardo Garcia Consulting Unavailable Kennedy Becerra Consulting Unavailable Clark, Laura Consulting Unavailable Aljundi, Lamia Consulting Unavailable Blanco, Deepa Consulting Unavailable Jose, Taran Consulting Unavailable Irukulla, Rufus Consulting Unavailable Juan Luis, Alonso Consulting Unavailable Dhesi, Emmett Consulting Unavailable Dietrich, Sujoy Consulting Unavailable Erie, Soleyah Consulting Unavailable Fernstrheath, Ramon Consulting Unavailable Maynor, Davon Consulting Unavailable Kuppuswavenkat, Vasanthan Consulting Unavailabl e Mau Hoover Consulting Unavailable Kush Doranadealphonso Consulting Unavailabl Jack Armijo Attending Unavailable Kendall Doran Attending Unavailabl e LAITH, ALFONSO Consulting Unavailable NANCY RIVAS MD Admitting Unavailable NANCY RIVAS MD Primary Care Unavailable NANCY RIVAS MD Attending Unavailable LAITH, ALFONSO Referring Unavailable PROVIDER, UNKNOWN Consulting Unavailable ASTRID ROBERT MD Primary Care Unavailabl e ASTRID ROBERT MD Admitting Unavailabl e LAITH, ALFONSO Consulting Unavailable ASTRID ROBERT MD Attending Unavailabl e PROVIDER, UNKNOWN Consulting Unavailable KRYSTIAN STEELE MD Attending Unavailable KRYSTIAN STEELE MD Admitting Unavailable LAITH, ALFONSO Referring Unavailable LAITH, ALFONSO Consulting Unavailable KRYSTIAN STEELE MD Primary Care Unavailable PROVIDER, UNKNOWN Consulting Unavailable JACK CARMICHAEL DO Admitting Unavailable JACK CARMICHAEL DO Primary Care Unavailable JACK CARMICHAEL DO Attending Unavailable LAITH, ALFONSO Consulting Unavailable LAITH, ALFONSO Referring Unavailable PROVIDER, UNKNOWN Consulting Unavailable LAITH, ALFONSO Referring Unavailable JACK CARMICHAEL DO Primary Care Unavailable JACK CARMICHAEL DO Attending Unavailable JACK CARMICHAEL DO Admitting Unavailable LAITH, ALFONSO Consulting Unavailable PROVIDER, UNKNOWN Consulting Unavailable JOSS ARMANDO MD Attending Unavailable JOSS ARMANDO MD Admitting Unavailable LAITH, ALFONSO Consulting Unavailable JOSS ARMANDO MD Primary Care Unavailable LAITH, ALFONSO Referring Unavailable PROVIDER, UNKNOWN Consulting Unavailable CLAUDE MEADOWS MD Attending Unavailable CLAUDE MEADOWS MD Admitting Unavailable CLAUDE MEADOWS MD Primary Care Unavailable LAITH, ALFONSO Consulting Unavailable PROVIDER, UNKNOWN Consulting Unavailable ASTRID ROBERT MD Admitting Unavailabl e ASTRID ROBERT MD Primary Care Unavailabl e LAITH, ALFONSO Consulting Unavailable ASTRID ROBERT MD Attending Unavailabl e PROVIDER, UNKNOWN Consulting Unavailable ASTRID ROBERT MD Attending Unavailabl e ASTRID ROBERT MD Admitting Unavailabl e LAITH, ALFONSO Consulting Unavailable ASTRID ROBERT MD Primary Care Unavailabl e PROVIDER, UNKNOWN Consulting Unavailable NANCY RIVAS MD Primary Care Unavailable NANCY RIVAS MD Consulting Unavailable NANCY RIVAS MD Attending Unavailable NANCY RIVAS MD Admitting Unavailable PROVIDER, UNKNOWN Consulting Unavailable PROVIDER, UNKNOWN Consulting Unavailable NANCY RIVAS MD Primary Care Unavailable NANCY RIVAS MD Attending Unavailable NANCY RIVAS MD Admitting Unavailable ALFONSO OZUNA Consulting Unavailable PROVIDER, UNKNOWN Consulting Unavailable Allergies Allergy Classification Reported Allergen(s) Allergy Type Date of Onset Reaction(s) Facility (2 sources) NKDA; 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: [NKDA] allergy to substance 7 [employer] Work Phone: NEGATED: Highlighted row has been ruled out! (1 source) Observed no known allergies at [facility] No Known Allergies propensity to adverse reactions [employer] Work Phone: Medications Current Medications Medication Drug Class(es) Dates Sig (Normalized) Sig (Original) [id number] 200 actuat albuterol 0.09 mg/actuat metered dose inhaler (9 sources) beta2-Adrenergic Agonist Start: 07-08-2019 End: 12-23-2020 Start: 01-12-2017 PROVENTIL HFA 108 (90 Base) MCG/ACT AERS every 6 hrs as needed ALBUTEROL SULFATE [id number] Juanjo Marr MD take 2 puff(s) by in halation four times daily albuterol 90 mcg/actuation inhaler Inhale 2 puffs 4 times a day. Active albuterol MDI (90 mcg/inh) CFC free inhalation aerosol (3 sources) Start: 09-06-2023 take 1 puff(s) by inhalation every four hours as needed for wheezing albuterol MDI (90 mcg/inh) CFC free inhalation aerosol 1 puff(s), Inhalation, q4h, PRN as needed for wheezing, # 8.5 gram(s), 3 Refill(s), Pharmacy: [facility], 157.5, cm, 09/02/23 6:47:00 EST, Height, kg, 11/11/23 6:47:00 EST, Dosing Weight Start Date: 09/06/23 Status: Ordered Medication Dispense Status: Completed Quantity: 8.5 Unit: g Total Allowed Fills: 4 Fills Dispensed: 0 Start: 09-06-2023 take 1 puff(s) by in halation every four hours as needed for wheezing albuterol MDI (90 mcg/inh) CFC free inhalation aerosol 1 puff(s), Inhalation, q4h, PRN as needed for wheezing, # 8.5 gram(s), 3 Refill(s), Pharmacy: [facility], 157.5, cm, 09/02/23 6:47:00 EST, [...] wheezing, # 8.5 gram(s), 3 Refill(s), Pharmacy: [facility], 157.5, cm, 09/02/23 6:47:00 EST, Height, kg, 09/02/23 6:47:00 EST, Dosing Weight Start Date: 09/06/23 Status: Ordered amLODIPine 10 mg oral tablet (1 source) Dihydropyridine Calcium Channel Cherelle Start: 07-26-2025 aspirin 81 mg delayed releas e oral tablet (8 sources) Nonsteroidal Anti-inflammatory Drug Start: 01-06-2017 End: 06-20-2026 atorvastatin 40 mg oral tabl et (3 sources) HMG-CoA Reductase Inhibitor Start: 07-08-2019 Start: 01-06-2017 take 1 tablet by santos th once daily ATORVASTATIN CALCIUM 40 MG TABS One tablet by mouth daily ATORVASTATIN CALCIUM [id number] Rashida Hampton RN brimonidine tartrate 2 mg/ml ophthalmic solution (2 sources) alpha-Adrenergic Agonist Start: 06-16-2021 buPROPion hydrochloride 100 mg oral tablet (1 [...] BID, # 180 tab(s), 0 Refill(s), Pharmacy: [facility], 157.5, cm, 11/04/24 11:10:00 EST, Height, kg, 11/04/24 11:10:00 EST, Dosing Weight Start Date: 11/28/24 Status: Ordered Medication Dispense Status: Completed Quantity: 180.0 Unit: tab(s) Total Allowed Fills: 1 Fills Dispensed: 0 Start: 01-22-2024 Coreg 6.25 mg oral tablet Dose : 6.25 mg = 1 tab(s), Oral, BID, # 180 tab(s), 3 Refill(s), Pharmacy: [facility], 157.5, cm, 01/22/24 16:06:00 EDT, Height, kg, 01/22/24 16:06:00 EDT, Dosing Weight Start Date: 01/22/24 Status: Ordered Quantity: 180.0 Unit: tab(s) Repeat number: 4 clopidogrel 75 mg oral table t (10 sources) [id number] Platelet Inhibitor Start: 06-25-2025 End: 06-20-2026 Start: 11-09-2024 Plavix 75 mg o ral tablet Dose : 75 mg = 1 tab(s), Oral, qDay, 0 Refill(s) Start Date: 11/09/24 Status: Ordered Repeat number: 1 Start: 01-12-2017 End: 07-08-2019 dorzolamide 20 mg/ml ophthalmic solution (2 sources) Carbonic Anhydrase Inhibitor Start: 06-16-2021 ezetimibe 10 mg oral tablet (2 sources) Dietary Cholesterol Absorption Inhibitor Start: 05-16-2025 Zetia 10 mg oral tablet Dose : 10 mg = 1 tab(s), Oral, qDay, appt needed for further refills, # 90 tab(s), 0 Refill(s), Pharmacy: [facility], 157.5, cm, 03/05/25 15:36:00 EDT, Height, kg, 03/05/25 15:36:00 EDT, Dosing Weight Start Date: 05/16/25 Status: Ordered Medication Dispense Status: Completed Quantity: 90.0 Unit: tab(s) Total Allowed Fills: 1 Fills Dispensed: 0 Start: 09-02-2024 Zetia 10 mg or al tablet Dose : 10 mg = 1 tab(s), Oral, qDay, # 90 tab(s), 1 Refill(s), Pharmacy: [facility], 157.5, cm, 02/22/24 16:04:00 EDT, Height, kg, 02/22/24 16:04:00 EDT, Dosing Weight Start Date: 09/02/24 Status: Ordered Quantity: 90.0 Unit: tab(s) Repeat number: 2 30 actuat fluticasone furoate 0.1 mg/actuat / umeclidinium 0.0625 mg/actuat / vilanterol 0.025 mg/actuat dry powder inhaler (2 sources) Anticholinergic, Corticosteroid, beta2-Adrenergic Agonist take 3 puff(s) by inhalation once daily [id number] (Trelegy Ellipta) 100-62.5-25 mcg blister with device Inhale 3 puffs once daily. Active furosemide 40 mg oral tablet (8 sources) Loop Diuretic Sta rt: Start: 06-25-2025 End: 12-22-2025 Lasix 40 mg oral tablet Dose : 40 mg = 1 tab(s), Oral, qDay, # 90 tab(s), 1 Refill(s), Pharmacy: [facility], 160, cm, 06/16/25 9:24:00 EDT, Height, kg, [...] once daily. 90 tablet 3 09/18/2023 Active lisinopril 20 mg oral tablet (4 sources) Angiotensin Converting Enzyme Inhibitor Start: 06-16-2021 Start: 07-08-2019 End: 06-16-2021 losartan potassium 50 mg oral tablet (2 sources) Angiotensin 2 Receptor Cherelle Start: 10-03-2024 End: 11-07-2025 losartan 50 mg oral tablet Dose : 50 mg = 1 tab(s), Oral, Daily, # 100 tab(s), 0 Refill(s) Start Date: 11/06/24 Status: Ordered Quantity: 100.0 Unit: tab(s) Repeat number: 1 metoprolol tartrate 50 mg oral tablet (14 sources) beta-Adrenergic Cherelle Start: 07-26-2025 Start: 06-20-2025 End: 06-21-2025 take 1 tablet by mouth in the [...] BIDM, # 60 tab(s), 3 Refill(s), Pharmacy: [facility], 157.5, cm, 09/02/23 6:47:00 EST, Height, kg, 09/02/23 6:47:00 EST, Dosing Weight Start Date: 09/06/23 Status: Ordered Start: 09-04-2023 End: 09-06-2023 metoprolol succinate 25 mg o ral TABLET extended release Start: 09/06/23 8:00:00 AM EST, Dose = 25 mg, = 1 tab(s), Oral, give with food, 0, 09/03/23 10:39:00 EST Start Date: 09/06/23 Stop Date: 09/06/23 Status: Completed Start: 07-08-2019 End: 07-08-2019 Start: 01-06-2017 take 1 tablet by santos th twice daily METOPROLOL TARTRATE 25 MG TABS One tablet by mouth twice daily METOPROLOL TARTRATE [id number] Rashida Hampton RN Start: 01-06-2017 take 0.5 tablet by m out once daily METOPROLOL SUCCINATE ER 25 MG [id number] One-half tablet by mouth daily METOPROLOL SUCCINATE [id number] Juanjo Marr MD montelukast 10 mg oral tablet (3 sources) Leukotriene Receptor Antagonist Start: 10-03-2024 End: 04-01-2025 Singulair 10 mg oral tablet Dose : 10 mg = 1 tab(s), Oral, qDay, 0 Refill(s) Start Date: 11/05/24 Status: Ordered Medication Dispense Status: Completed Total Allowed Fills: 1 Fills Dispensed: 0 nitroglycerin 0.4 mg sublingual tablet (3 sources) Nitrate Vasodilator Start: 07-08-2019 Start: 01-12-2017 NITROGLYCERIN 0.4 MG SUBL 1 tablet under the tongue every 5 minutes times 3 as needed for chest pain. NITROGLYCERIN [id number] Juanjo Marr MD OXcarbazepine 150 mg oral tablet (1 source) Anti-epileptic Agent Start: 06-23-2011 take 1 dose by mouth once daily at bedtime Trileptal Dose : 150 mg =, Oral, qHS, 0 Refill(s) Start Date: 06/23/11 Status: Ordered 24 hr oxybutynin chloride 10 mg extended release oral tablet (6 sources) Cholinergic Muscarinic Antagonist Start: 07-08-2019 Start: 01-06-2017 take 1 tablet by santos th once daily OXYBUTYNIN CHLORIDE ER 10 MG [id number] One tablet by mouth daily (HOLD) OXYBUTYNIN CHLORIDE [id number] Sharron Nguyen RN microencapsulated potassium chloride 20 meq extended release oral tablet (2 sources) Start: 06-20-2024 KlorGhulam M20 o ral tablet, extended release Dose : 20 mEq = 1 tab(s), Oral, BID, # 60 tab(s), 5 Refill(s), Pharmacy: [facility], 157.5, cm, 02/22/24 16:04:00 EDT, Height, kg, 02/22/24 16:04:00 EDT, Dosing Weight Start Date: 06/20/24 Status: Ordered Medication Dispense Status: Completed Quantity: 60.0 Unit: tab(s) Total Allowed Fills: 6 Fills Dispensed: 0 predniSONE 20 mg oral tablet (2 sources) Start: 07-26-2025 Start: 06-25-2025 End: 06-28-2025 predniSONE 10 mg oral tablet Dose : 10 mg = 1 tab(s), Oral, qDay, # 3 tab(s), 0 Refill(s), Pharmacy: [facility], 160, cm, 06/16/25 9:24:00 EDT, Height, kg, [...] qDay, # 60 tab(s), 3 Refill(s), Pharmacy: [facility], 157.5, cm, 09/02/23 6:47:00 EST, Height, kg, 09/02/23 6:47:00 EST, Dosing Weight Start Date: 09/06/23 Status: Ordered sacubitril 97 mg / valsartan 103 mg oral tablet (3 sources) Angiotensin 2 Receptor Cherelle Start: 03-06-2025 take 1 tablet by mouth twice daily Entresto 97 mg-103 mg oral tablet Dose = 1 tab(s), Oral, BID, # 180 tab(s), 2 Refill(s), Pharmacy: [facility], 157.5, cm, 03/05/25 15:36:00 EDT, Height, kg, 03/05/25 15:36:00 EDT, Dosing Weight Start Date: 03/06/25 Status: Ordered Medication Dispense Status: Completed Quantity: 180.0 Unit: tab(s) Total Allowed Fills: 3 Fills Dispensed: 0 Start: 01-22-2024 take 1 tablet by santos th twice daily Entresto 49 mg-51 mg oral tablet Dose = 1 tab(s), Oral, BID, # 180 tab(s), 3 Refill(s), Pharmacy: [facility], 157.5, cm, 01/22/24 16:06:00 EDT, Height, kg, 01/22/24 16:06:00 EDT, Dosing Weight Start Date: 01/22/24 Status: Ordered Quantity: 180.0 Unit: tab(s) Repeat number: 4 Start: 09-06-2023 take 1 tablet by santos th twice daily Entresto 24 mg-26 mg oral tablet Dose = 1 tab(s), Oral, BID, # 60 tab(s), 3 Refill(s), Pharmacy: [facility], 157.5, cm, 09/02/23 6:47:00 EST, Height, kg, 09/02/23 6:47:00 EST, Dosing Weight Start Date: 09/06/23 Status: Ordered Trelegy Ellipta 100 mcg-62.5 mcg-25 mcg/inh inhalation powder (1 source) Start: 09-06-2023 take 1 dose by mouth once daily Trelegy Ellipta 100 mcg-62.5 mcg-25 mcg/inh inhalation powder Dose = 1 puff(s), Inhalation, qDay, at the same time every day. Following administration, rinse mouth with water after use (do not swallow)., # 60 EA, 3 Refill(s), Pharmacy: [facility], 157.5, cm, 09/02/23 6:47:00 EST, Height, kg, 09/02/23 6:47:00 EST, Dosing Weight Start Date: 09/06/23 Status: Ordered (2 sources) Start: 07-18-2025 Completed/Discontinued Medications Medication Drug Class(es) Dates Sig (Normalized) Sig (Original) benzonatate 200 mg oral capsule (2 sources) Non-narcotic Antitussive Start: 09-23-2019 End: 12-23-2020 12 hr guaiFENesin 1200 mg extended release oral tablet (2 sources) Start: 09-23-2019 End: 12-23-2020 ketorolac tromethamine 5 mg/ml ophthalmic solution (2 sources) Nonsteroidal Anti-inflammatory Drug, Cyclooxygenase Inhibitor Start: 06-16-2021 End: 06-16-2021 Labetalol (1 source) beta-Adrenergic Cherelle Start: 11-05-2024 End: 11-05-2024 labetalol Start: 11/05/24 8:30:00 AM EST, Dose = 10 mg, = 2 mL, IV Push, Once, Stop: 11/05/24 8:34:27 AM EST, 11/05/24 8:26:00 EST Start Date: 11/05/24 Stop Date: 11/05/24 Status: Completed Repeat number: 1 ofloxacin 3 mg/ml ophthalmic solution (2 sources) Quinolone Antimicrobial Start: 06-16-2021 End: 06-16-2021 prednisoLONE acetate 10 mg/ml ophthalmic suspension (2 sources) Corticosteroid Start: 06-16-2021 End: 06-16-2021 spironolactone 25 mg oral tablet (3 sources) Aldosterone Antagonist Start: 07-17-2025 End: 07-26-2025 Start: 06-25-2025 End: 06-20-2026 Aldactone 25 mg oral tablet Dose : 25 mg = 1 tab(s), Oral, qDayM, # 90 tab(s), 3 Refill(s), Pharmacy: [facility], 160, cm, 06/16/25 9:24:00 EDT, Height, kg, 06/16/25 9:24:00 EDT, Dosing Weight Start Date: 06/25/25 Stop Date: 06/20/26 Status: Ordered Medication Dispense Status: Completed Quantity: 90.0 Unit: tab(s) Total Allowed Fills: 4 Fills Dispensed: 0 Problems Active Problems Problem Classification Problem Date Documented Date Episodic/Chronic Acute myocardial infarction (3 sources) Non-ST elevation (NSTEMI) myocardial infarction; 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: [Non-ST elevation (NSTEMI) myocardial infarction] Onset: 06-16-2025 Chronic Administrative/social admission (9 sources) Patient encounter status; 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: [Other specified counseling] Onset: 08-18-2025 07-22-2025 Episodic Anxiety disorders (5 sources) Anxiety disorder; 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: [Anxiety disorder, unspecified] Onset: 10-03-2024 Chronic Cardiac dysrhythmias (6 sources) Unspecified atrial fibrillation; 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: [Atrial premature depolarization] Onset: 11-04-2024 Chronic Chronic obstructive pulmonary disease and bronchiectasis (18 sources) Acute exacerbation of chronic obstructive airways disease; 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: [Chronic obstructive pulmonary disease with (acute) exacerbation] Onset: 10-03-2024 Chronic Conduction disorders (2 sources) Second degree atrioventricular block; 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: [Atrioventricular block, second degree] Onset: 06-16-2025 Chronic Congestive heart failure; nonhypertensive (20 sources) Heart failure; 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: [Heart failure, unspecified] Onset: 10-03-2024 Chronic Coronary atherosclerosis and other heart disease (16 sources) Atherosclerotic heart disease of [place] coronary artery without angina pectoris; 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: [Coronary arteriosclerosis] Onset: 01-06-2017 01-06-2017 Chronic Coronary atherosclerosis and other heart disease (5 sources) Presence of coronary angioplasty implant and graft; 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: [Coronary angioplasty status] Onset: 10-09-2024 Episodic Deficiency and other anemia (1 source) Anemia; 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: [Anemia, unspecified] Episodic Diabetes mellitus without complication (1 source) Type 2 diabetes mellitus without complications; 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: [Type 2 diabetes mellitus without complications] Onset: 11-04-2024 Chronic Diabetes mellitus without complication (5 sources) Hyperglycemia; 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: [Hyperglycemia, unspecified] Onset: 08-18-2025 07-16-2025 Episodic Diseases of white blood cells (7 sources) Elevated white blood cell count, unspecified; 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: [Leukocytosis] Onset: 06-16-2025 07-16-2025 Chronic Disorders of lipid metabolism (7 sources) Hyperlipidemia; 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: [Hyperlipidemia, unspecified] Onset: 01-06-2017 01-06-2017 Chronic Esophageal disorders (3 sources) Gastroesophageal reflux disease without esophagitis; 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: [Gastro-esophageal reflux disease without esophagitis] Onset: 11-04-2024 Chronic Essential hypertension (10 sources) Essential hypertension; 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: [Essential (primary) hypertension] Onset: 10-03-2024 09-18-2023 Chronic Fluid and electrolyte disorders (7 sources) Acidosis; 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: [Acidosis, unspecified] Onset: 07-26-2025 Episodic Heart valve disorders (7 sources) Mitral valve disorder; 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: [Nonrheumatic mitral (valve) insufficiency] Onset: 01-06-2017 01-06-2017 Chronic Hypertension with complications and secondary hypertension (8 sources) Hypertensive heart failure; 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: [Hypertensive heart disease with heart failure] Onset: 11-04-2024 Chronic Malaise and fatigue (1 source) Weakness; 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: [Weakness] Onset: 07-26-2025 Episodic Mood disorders (6 sources) Bipolar disorder; 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: [Bipolar disorder, unspecified] Onset: 11-04-2024 Chronic Other aftercare (1 source) Encounter for palliative care; 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: [Encounter for palliative care] Onset: 08-18-2025 Episodic Other and ill-defined heart disease (1 source) [...] acid dehydrogenase [LDH]] Episodic Other liver diseases (5 sources) Enzyme level - finding; 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: [Abnormal levels of other serum enzymes] Episodic Other lower respiratory disease (1 source) Chronic pulmonary edema; 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: [Chronic pulmonary edema] Chronic Other lower respiratory disease (1 source) Acute pulmonary edema; 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: [Acute pulmonary edema] Episodic Other nervous system disorders (1 source) Unspecified abnormalities of gait and mobility; 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: [Unspecified abnormalities of gait and mobility] Onset: 07-26-2025 Episodic Other screening for suspected conditions (not mental disorders or infectious disease) (8 sources) Blood chemistry abnormal; 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: [Other specified abnormal findings of blood chemistry] Onset: 11-04-2024 Episodic Nidy-; endo-; and myocarditis; cardiomyopathy (9 sources) Hypertrophic cardiomyopathy; 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: [Cardiomyopathy] Onset: 01-06-2017 01-06-2017 Chronic Personality disorders (1 source) Personality disorder; 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: [Personality disorder, unspecified] Chronic Pulmonary heart disease (2 sources) Pulmonary hypertension; 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: [Pulmonary hypertension, unspecified] 07-08-2019 Chronic Residual codes; unclassified (1 source) Restlessness and agitation; 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: [Restlessness and agitation] Onset: 11-04-2024 Chronic Residual codes; unclassified (3 sources) Tobacco user; 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: [Tobacco use] Episodic Residual codes; unclassified (1 source) H/O: deliberate self harm; 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: [Personal history of suicidal behavior] Episodic Residual codes; unclassified (1 source) Disorientated; 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: [Disorientation, unspecified] Episodic Respiratory failure; insufficiency; arrest (adult) (11 sources) Xyfgv-as-dkfltnw respiratory failure; 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: [Acute and chronic respiratory failure with hypercapnia] Onset: 10-03-2024 Chronic Respiratory failure; insufficiency; arrest (adult) (14 sources) Acute respiratory failure; 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: [Acute respiratory failure with hypoxia] Onset: 11-04-2024 Episodic Screening or history of mental health and substance abuse (2 sources) Tobacco dependence syndrome; 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: [Nicotine dependence, unspecified, uncomplicated] Onset: 01-12-2017 01-12-2017 Chronic Septicemia (except in labor) (7 sources) Sepsis; 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: [Other specified sepsis] Onset: 08-18-2025 Episodic Substance-related disorders (3 sources) Nicotine dependence, cigarettes, uncomplicated; 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: [Nicotine dependence, unspecified, uncomplicated] Onset: 10-03-2024 Chronic Syncope (2 sources) Syncope and collapse; 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: [Syncope] Onset: 01-06-2017 01-06-2017 Episodic Unclassified (1 source) Placement of stent in coronary artery ; 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: [Presence of cardiac and vascular implant and graft, unspecified] Onset: 01-06-2017 01-06-2017 Unclassified (1 source) Patient's other noncompliance with medication regimen for other reason; 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: [Patient's other noncompliance with medication regimen for other reason] Onset: 06-16-2025 Unclassified (1 source) Encounter for screening for COVID-19; 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: [Encounter for screening for COVID-19] Onset: 06-16-2025 Unclassified (2 sources) Acidosis, unspecified; 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: [Acidosis, unspecified] Onset: 11-04-2024 Unclassified (1 source) Elevation of levels of liver transaminase levels; 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: [Elevation of levels of liver transaminase levels] Onset: 08-18-2025 Unclassified (1 source) Other supraventricular tachycardia; 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: [Other supraventricular tachycardia] Onset: 08-18-2025 Unclassified (1 source) Elevation of levels of liver transaminase levels; 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: [Elevation of levels of liver transaminase levels] Onset: 10-03-2024 Past or Other Problems Problem Classification Problem Date Documented Da te Episodic/Chronic Acute and unspecified renal failure (2 sources) Acute kidney failure, unspecified; 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: [Acute kidney failure, unspecified] Onset: 10-03-2024 Episodic Deficiency and other anemia (1 source) [...] of the external cause] Onset: 10-09-2024 Episodic Immunizations and screening for infectious disease [...] 10-09-2024 Episodic Other aftercare (2 sources) Other bobj developer (current) drug therapy; 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: [Other bobj developer (current) drug therapy] Onset: 01-06-2017 01-06-2017 Episodic Other aftercare (1 source) [facility] (current) use of aspirin; 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] Onset: 11-04-2024 Episodic Other aftercare (1 source) 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/ant iplatelets; 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: [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/ant iplatelets] Onset: 11-04-2024 Episodic Other lower respiratory disease (3 sources) Dyspnea; 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: [Shortness of breath] Onset: 01-26-2017 01-26-2017 Episodic Other lower respiratory disease (3 sources) Shortness of breath; 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: [Shortness of breath] Onset: 09-02-2023 Episodic Pneumonia (except that caused by tuberculosis or sexually transmitted disease) (8 sources) Pneumonia; 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: [Pneumonia, unspecified organism] Onset: 10-03-2024 Episodic Residual codes; unclassified (1 source) Acquired absence of other genital organ(s); 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: [Acquired absence of other genital organ(s)] Onset: 10-09-2024 Episodic Sprains and strains (1 source) Strain of muscle, fascia and tendon at neck level, initial encounter; 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: [Strain of muscle, fascia and tendon at neck level, initial encounter] Onset: 10-09-2024 Episodic Unclassified (2 sources) Onset: 09-18-2023 09-18-2023 Results Test Name Value Interpretation Reference Range Facility CBC + DIFFon 08-01-2025 Baso # 0.04 x10EE3/UL Normal 0.00 - 0.10 [facility] Comment on above: Performed By: #### 2 20104 ####[facility],[address] [place] [address] 72248 Basophils/100 WBC (Bld) 0.6 % Normal 0.0 - 2.0 [facility] Comment on above: Performed By: #### 2 73035 ####[facility],[address] [place] [address] CBC + DIFF Normal [facility] Comment on above: Result Comment: CBC- COMPLETE BLOOD COUNT Performed By: #### 2 53577 ####[facility],[address] [place] [address] EO # 0.05 x10EE3/UL Normal 0.00 - 0.50 [facility] Comment on above: Performed By: #### 2 16420 ####[facility],[address] [place], [place] [id number] Eosinophils/100 WBC (Bld) 0.7 % Normal 0.0 - 7.0 [facility] Comment on above: Performed By: #### 2 54284 ####[facility],[address] [place] [address] Erythrocyte distribution width (RBC) [Ratio] 15.3 % Normal 12.0 - 15.6 [facility] Comment on above: Performed By: #### 2 27913 ####[facility],[address] [place] [address] Hematocrit (Bld) [Volume fraction] 23.7 % Low 34.0 - 46.0 [facility] Comment on above: Performed By: #### 2 86669 ####[facility],[address] [place], [place] [id number] Hemoglobin (Bld) [Mass/Vol] 8.1 g/dL Low 12.0 - 16.0 [facility] Comment on above: Performed By: #### 2 81079 ####[facility],[address] [place] [address] Lymph # 1.58 x10EE3/UL Normal 0.80 - 2.80 [facility] Comment on above: Performed By: #### 2 80401 ####[facility],[address] [place], [place] [id number] Lymphocytes/100 WBC (Bld) 21.5 % Normal 20.0 - 45.0 [facility] Comment on above: Performed By: #### 2 25515 ####[facility],[address] [place], [place] [id number] MANUAL DIFF N/A Normal [facility] Comment on above: Performed By: #### 2 91096 ####[facility],[address] [place] [address] MCH (RBC) [Entitic mass] 29 pg Normal 27 - 33 [facility] Comment on above: Performed By: #### 2 83160 ####[place] [address] MCHC 34 X10 3 Normal 32 - 36 [facility] Comment on above: Performed By: #### 2 26291 ####[place] [id number] MCV (RBC) [Entitic vol] 86 fL Normal 80 - 99 [facility] Comment on above: Performed By: #### 2 38570 ####[facility],[address] [place] [address] [place] # 0.84 x10EE3/UL Normal 0.20 - 1.00 [facility] Comment on above: Performed By: #### 2 77609 ####[place] [id number] MONOS % 11.5 % High 0.0 - 10.0 [facility] Comment on above: Performed By: #### 2 98730 ####[facility],[address] [place] [address] 86770 Morphology Dandy (Bld) [Interp] N/A Normal [facility] Comment on above: Performed By: #### 2 00744 ####[facility],[address] [place] [address] 09199 Neut # 4.85 x10EE3/UL Normal 1.50 - 7.10 [facility] Comment on above: Performed By: #### 2 44906 ####[facility],[address] [place] [address] 97842 Neutrophils/100 WBC (Bld) 65.8 % Normal 46.0 - 76.0 [facility] Comment on above: Performed By: #### 2 06277 ####[facility],[address] [place] [address] 64102 PLATELET 346 x10EE3/UL Normal 150 - 450 [facility] Comment on above: Performed By: #### 2 27227 ####[facility],[address] [place] [address] 43763 Platelet mean volume (Bld) [Entitic vol] 7.5 fL Normal 6.6 - 10.5 [facility] Comment on above: Result Comment: AUTO MATED DIFFERENTIAL Performed By: #### 2 61448 ####[facility],[address] [place] [address] 49972 RBC 2.75 x 10EE6/UL Low 4.10 - 5.30 [facility] Comment on above: Performed By: #### 2 79249 ####[facility],[address] [place] [address] 62960 WBC 7.4 x 10EE3/UL Normal 4.5 - 10.8 [facility] Comment on above: Performed By: #### 2 20862 ####[facility],[address] [place] [address] 10145 CMP with eGFRon 08-01-2025 AGE 70 years Normal [facility] Comment on above: Performed By: #### 2 07296 ####[facility],[address] [place] [address] 97307 Albumin [Mass/Vol] 2.1 g/dL Low 3.4 - 5.0 [facility] Comment on above: Performed By: #### 2 85160 ####[facility],[address] [place] [address] 90992 Albumin/Globulin [Mass ratio] 0.7 {ratio} Low 0.9 - 1.6 [facility] Comment on above: Performed By: #### 2 30900 ####[facility],[address] [place] [address] 72204 ALK PHOS 53 U/L Normal 46 - 116 [facility] Comment on above: Performed By: #### 2 32247 ####[facility],[address] [place] [address] 06481 ALT [Catalytic activity/Vol] 32 U/L Normal 16 - 63 [facility] Comment on above: Performed By: #### 2 64506 ####[facility],[address] [place] [address] 31182 Anion gap [Moles/Vol] 6 mmol/L Low 10 - 20 [facility] Comment on above: Performed By: #### 2 32354 ####[facility],[address] [place] [address] 68128 AST [Catalytic activity/Vol] 25 U/L Normal 13 - 39 [facility] Comment on above: Performed By: #### 2 77241 ####[facility],[address] [place] [address] 28074 B/C RATIO 19 ratio Normal 0 - 30 [facility] Comment on above: Performed By: #### 2 29080 ####[facility],[address] [place] [address] 33075 Bilirubin [Mass/Vol] 0.3 mg/dL Normal 0.2 - 1.0 [facility] Comment on above: Performed By: #### 2 51230 ####[facility],[address] [place] [address] 16276 Calcium [Mass/Vol] 8.0 mg/dL Low 8.5 - 10.1 [facility] Comment on above: Performed By: #### 2 46191 ####[facility],[address] [place] [address] 12244 Chloride [Moles/Vol] 99 mmol/L Normal 98 - 107 [facility] Comment on above: Performed By: #### 2 32866 ####[facility],[address] [place] [address] 28929 CMP with eGFR Normal [facility] Comment on above: Result Comment: COMP REHENSIVE METABOLIC PANEL Performed By: #### 2 42152 ####[facility],[address] [place] [address] 76262 CO2 [Moles/Vol] 33.8 mmol/L High 21.0 - 32.0 [facility] Comment on above: Performed By: #### 2 22998 ####[facility],[address] [place] [address] 58742 Creatinine [Mass/Vol] 0.62 mg/dL Normal 0.55 - 1.02 [facility] Comment on above: Performed By: #### 2 76062 ####[facility],[address] [place] [address] 59740 GFR/1.73 sq M.predicted among non-blacks MDRD (S/P/Bld) [Vol rate/Area] mL/min/{1.73_m2} Normal 60 - 999 [facility] Comment on above: Performed By: #### 2 89695 ####[facility],[address] [place] [address] 14631 Result Comment: ACCO RDING TO THE NATIONAL KIDNEY DISEASE EDUCATION PROGRAM(NKDE), A NORMAL eGFRIS A VALUE GREATER THAN OR EQUAL TO 60 ML/MIN/1.73 SQ METERS.CHRONIC KIDNEY DISEASE: <60mL/MIN/1.73 SQ METERSKIDNEY FAILURE: <15mL/MIN/1.73 SQ METERSTHIS TEST SHOULD ONLY BE USED FOR PATIENTS 18 YEARS OF AGE AND OLDER. Globulin (S) [Mass/Vol] 2.9 g/dL Normal 1.5 - 3.8 [facility] Comment on above: Performed By: #### 2 19817 ####[facility],[address] [place] [address] 32591 Glucose [Mass/Vol] 84 mg/dL Normal 74 - 106 [facility] Comment on above: Performed By: #### 2 10673 ####[facility],[address] [place] [address] 16629 Potassium [Moles/Vol] 2.9 mmol/L Critically low 3.5 - 5.1 [facility] Comment on above: Result Comment: { CA LLED TO GERARDO WYNN BY CB AT 0939{ READ BACK BY GERARDO WYNN RA AT 0930 Performed By: #### 2 44146 ####[facility],[address] [place] [address] 83913 Protein [Mass/Vol] 5.0 g/dL Low 6.4 - 8.2 [facility] Comment on above: Performed By: #### 2 23322 ####[facility],[address] [place] [address] 31506 Sodium [Moles/Vol] 136 mmol/L Normal 136 - 145 [facility] Comment on above: Performed By: #### 2 82924 ####[facility],[address] [place] [address] 87562 Urea nitrogen [Mass/Vol] 12 mg/dL Normal 7 - 18 [facility] Comment on above: Performed By: #### 2 21844 ####[facility],[address] [place] [address] 02995 Basic Metabolic Profile (BMP )on 07-29-2025 BUN Normal -19 [facility] Comment on above: Result Comment: Canc elled via OM: Order cancelled - Patient discharged Performed By: #### L 500.2500, L100.0100 ####[facility] [address] [place], [address] BUN/CRE Normal 10-20 [facility] Comment on above: Result Comment: Canc elled via OM: Order cancelled - Patient discharged Performed By: #### L 500.2500, L100.0100 ####[facility] [address] [place], [address] Calcium Normal 7.6-11.0 [facility] Comment on above: Result Comment: Canc elled via OM: Order cancelled - Patient discharged Performed By: #### L 500.2500, L100.0100 ####[facility] [address] [place], [address] CL Normal 98-108 [facility] Comment on above: Result Comment: Canc elled via OM: Order cancelled - Patient discharged Performed By: #### L 500.2500, L100.0100 ####[facility] [address] [place], [address] CO2 Normal 21.0-32.0 [facility] Comment on above: Result Comment: Canc elled via OM: Order cancelled - Patient discharged Performed By: #### L 500.2500, L100.0100 ####[facility] [address] [place], [address] CREAT,SERUM Normal 0.70-1.20 [facility] Comment on above: Result Comment: Canc elled via OM: Order cancelled - Patient discharged Performed By: #### L 500.2500, L100.0100 ####[facility] [address] [place], [address] eGFR Normal >60 [facility] Comment on above: Result Comment: Canc elled via OM: Order cancelled - Patient discharged Performed By: #### L 500.2500, L100.0100 ####[facility] [address] [place], [address] GAP Normal 5-15 [facility] Comment on above: Result Comment: Canc elled via OM: Order cancelled - Patient discharged Performed By: #### L 500.2500, L100.0100 ####[facility] [address] [place], [address] GLU Normal 70-99 [facility] Comment on above: Result Comment: Canc elled via OM: Order cancelled - Patient discharged Performed By: #### L 500.2500, L100.0100 ####[facility] [address] [place], [address] Potassium Normal 3.3-5.1 [facility] Comment on above: Result Comment: Canc elled via OM: Order cancelled - Patient discharged Performed By: #### L 500.2500, L100.0100 ####[facility] [address] [place], [address] Basic Metabolic Profile (BMP) Normal 133-145 [facility] Comment on above: Result Comment: Canc elled via OM: Order cancelled - Patient discharged Performed By: #### L 500.2500, L100.0100 ####[facility] [address] [place], [address] CBC W/Diff, Automatedon 10-0 7-2024 Absolute Neut Normal 2.0-7.7 [facility] Comment on above: Result Comment: Canc elled via OM: Order cancelled - Patient discharged Performed By: #### L 500.2500, L100.0100 ####[facility] [address] [place], [address] HCT Normal 37-47 [facility] Comment on above: Result Comment: Canc elled via OM: Order cancelled - Patient discharged Performed By: #### L 500.2500, L100.0100 ####[facility] [address] [place], [address] HGB Normal 12.0-15.0 [facility] Comment on above: Result Comment: Canc elled via OM: Order cancelled - Patient discharged Performed By: #### L 500.2500, L100.0100 ####[facility] [address] [place], [address] MCH Normal 27.0-32.0 [facility] Comment on above: Result Comment: Canc elled via OM: Order cancelled - Patient discharged Performed By: #### L 500.2500, L100.0100 ####[facility] [address] [place], [address] MCHC Normal 32-36 [facility] Comment on above: Result Comment: Canc elled via OM: Order cancelled - Patient discharged Performed By: #### L 500.2500, L100.0100 ####[facility] [address] [place], [address] MCV Normal 81-99 [facility] Comment on above: Result Comment: Canc elled via OM: Order cancelled - Patient discharged Performed By: #### L 500.2500, L100.0100 ####[facility] [address] [place], [address] NEUT% Normal 47-70 [facility] Comment on above: Result Comment: Canc elled via OM: Order cancelled - Patient discharged Performed By: #### L 500.2500, L100.0100 ####[facility] [address] [place], [address] PLT Normal 150-450 [facility] Comment on above: Result Comment: Canc elled via OM: Order cancelled - Patient discharged Performed By: #### L 500.2500, L100.0100 ####[facility] [address] [place], [address] RBC Normal 4.2-5.4 [facility] Comment on above: Result Comment: Canc elled via OM: Order cancelled - Patient discharged Performed By: #### L 500.2500, L100.0100 ####[facility] [address] [place], [address] RDW CV Normal 11.6-14.6 [facility] Comment on above: Result Comment: Canc elled via OM: Order cancelled - Patient discharged Performed By: #### L 500.2500, L100.0100 ####[facility] [address] [place], [address] RDW SD Normal 35.1-43.9 [facility] Comment on above: Result Comment: Canc elled via OM: Order cancelled - Patient discharged Performed By: #### L 500.2500, L100.0100 ####[facility] [address] [place], [address] WBC Normal 4.4-11.0 [facility] Comment on above: Result Comment: Canc elled via OM: Order cancelled - Patient discharged Performed By: #### L 500.2500, L100.0100 ####[facility] [address] [place], [address] Basic Metabolic Profile (BMP )on 07-28-2025 BUN Normal -19 [facility] Comment on above: Result Comment: Canc elled via OM: Order cancelled - Patient discharged Performed By: #### L 500.2500, L100.0100 ####[facility] [address] [place], [address] BUN/CRE Normal -20 [facility] Comment on above: Result Comment: Canc elled via OM: Order cancelled - Patient discharged Performed By: #### L 500.2500, L100.0100 ####[facility] [address] [place], [address] Calcium Normal 7.6-11.0 [facility] Comment on above: Result Comment: Canc elled via OM: Order cancelled - Patient discharged Performed By: #### L 500.2500, L100.0100 ####[facility] [address] [place], [address] CL Normal 98-108 [facility] Comment on above: Result Comment: Canc elled via OM: Order cancelled - Patient discharged Performed By: #### L 500.2500, L100.0100 ####[facility] [address] [place], [address] CO2 Normal 21.0-32.0 [facility] Comment on above: Result Comment: Canc elled via OM: Order cancelled - Patient discharged Performed By: #### L 500.2500, L100.0100 ####[facility] [address] [place], [address] CREAT,SERUM Normal 0.70-1.20 [facility] Comment on above: Result Comment: Canc elled via OM: Order cancelled - Patient discharged Performed By: #### L 500.2500, L100.0100 ####[facility] [address] [place], [address] eGFR Normal >60 [facility] Comment on above: Result Comment: Canc elled via OM: Order cancelled - Patient discharged Performed By: #### L 500.2500, L100.0100 ####[facility] [address] [place], [address] GAP Normal 5-15 [facility] Comment on above: Result Comment: Canc elled via OM: Order cancelled - Patient discharged Performed By: #### L 500.2500, L100.0100 ####[facility] [address] [place], [address] GLU Normal 70-99 [facility] Comment on above: Result Comment: Canc elled via OM: Order cancelled - Patient discharged Performed By: #### L 500.2500, L100.0100 ####[facility] [address] [place], [address] Potassium Normal 3.3-5.1 [facility] Comment on above: Result Comment: Canc elled via OM: Order cancelled - Patient discharged Performed By: #### L 500.2500, L100.0100 ####[facility] [address] [place], [address] Basic Metabolic Profile (BMP) Normal 133-145 [facility] Comment on above: Result Comment: Canc elled via OM: Order cancelled - Patient discharged Performed By: #### L 500.2500, L100.0100 ####[facility] [address] [place], [address] CBC W/Diff, Automatedon 10-0 Absolute Neut Normal 2.0-7.7 [facility] Comment on above: Result Comment: Canc elled via OM: Order cancelled - Patient discharged Performed By: #### L 500.2500, L100.0100 ####[facility] [address] [place], [address] HCT Normal 37-47 [facility] Comment on above: Result Comment: Canc elled via OM: Order cancelled - Patient discharged Performed By: #### L 500.2500, L100.0100 ####[facility] [address] [place], [address] HGB Normal 12.0-15.0 [facility] Comment on above: Result Comment: Canc elled via OM: Order cancelled - Patient discharged Performed By: #### L 500.2500, L100.0100 ####[facility] [address] [place], [address] MCH Normal 27.0-32.0 [facility] Comment on above: Result Comment: Canc elled via OM: Order cancelled - Patient discharged Performed By: #### L 500.2500, L100.0100 ####[facility] [address] [place], [address] MCHC Normal 32-36 [facility] Comment on above: Result Comment: Canc elled via OM: Order cancelled - Patient discharged Performed By: #### L 500.2500, L100.0100 ####[facility] [address] [place], [address] MCV Normal 81-99 [facility] Comment on above: Result Comment: Canc elled via OM: Order cancelled - Patient discharged Performed By: #### L 500.2500, L100.0100 ####[facility] [address] [place], [address] NEUT% Normal 47-70 [facility] Comment on above: Result Comment: Canc elled via OM: Order cancelled - Patient discharged Performed By: #### L 500.2500, L100.0100 ####[facility] [address] [place], [address] PLT Normal 150-450 [facility] Comment on above: Result Comment: Canc elled via OM: Order cancelled - Patient discharged Performed By: #### L 500.2500, L100.0100 ####[facility] [address] [place], [address] RBC Normal 4.2-5.4 [facility] Comment on above: Result Comment: Canc elled via OM: Order cancelled - Patient discharged Performed By: #### L 500.2500, L100.0100 ####[facility] [address] [place], [address] RDW CV Normal 11.6-14.6 [facility] Comment on above: Result Comment: Canc elled via OM: Order cancelled - Patient discharged Performed By: #### L 500.2500, L100.0100 ####[facility] [address] [place], [address] RDW SD Normal 35.1-43.9 [facility] Comment on above: Result Comment: Canc elled via OM: Order cancelled - Patient discharged Performed By: #### L 500.2500, L100.0100 ####[facility] [address] [place], [address] WBC Normal 4.4-11.0 [facility] Comment on above: Result Comment: Canc elled via OM: Order cancelled - Patient discharged Performed By: #### L 500.2500, L100.0100 ####[facility] [address] [place], [address] Basic Metabolic Profile (BMP )on 07-27-2025 BUN Normal -19 [facility] Comment on above: Result Comment: Canc elled via OM: Order cancelled - Patient discharged Performed By: #### L 100.0100, L500.2500 ####[facility] [address] [place], [address] BUN/CRE Normal - [facility] Comment on above: Result Comment: Canc elled via OM: Order cancelled - Patient discharged Performed By: #### L 100.0100, L500.2500 ####[facility] [address] [place], [address] Calcium Normal 7.6-11.0 [facility] Comment on above: Result Comment: Canc elled via OM: Order cancelled - Patient discharged Performed By: #### L 100.0100, L500.2500 ####[facility] [address] [place], [address] CL Normal 98-108 [facility] Comment on above: Result Comment: Canc elled via OM: Order cancelled - Patient discharged Performed By: #### L 100.0100, L500.2500 ####[facility] [address] [place], [address] CO2 Normal 21.0-32.0 [facility] Comment on above: Result Comment: Canc elled via OM: Order cancelled - Patient discharged Performed By: #### L 100.0100, L500.2500 ####[facility] [address] [place], [address] CREAT,SERUM Normal 0.70-1.20 [facility] Comment on above: Result Comment: Canc elled via OM: Order cancelled - Patient discharged Performed By: #### L 100.0100, L500.2500 ####[facility] [address] [place], [address] eGFR Normal >60 [facility] Comment on above: Result Comment: Canc elled via OM: Order cancelled - Patient discharged Performed By: #### L 100.0100, L500.2500 ####[facility] [address] [place], [address] GAP Normal 5-15 [facility] Comment on above: Result Comment: Canc elled via OM: Order cancelled - Patient discharged Performed By: #### L 100.0100, L500.2500 ####[facility] [address] [place], [address] GLU Normal 70-99 [facility] Comment on above: Result Comment: Canc elled via OM: Order cancelled - Patient discharged Performed By: #### L 100.0100, L500.2500 ####[facility] [address] [place], [address] Potassium Normal 3.3-5.1 [facility] Comment on above: Result Comment: Canc elled via OM: Order cancelled - Patient discharged Performed By: #### L 100.0100, L500.2500 ####[facility] [address] [place], [address] Basic Metabolic Profile (BMP) Normal 133-145 [facility] Comment on above: Result Comment: Canc elled via OM: Order cancelled - Patient discharged Performed By: #### L 100.0100, L500.2500 ####[facility] [address] [place], [address] CBC W/Diff, Automatedon 10-0 5-2024 Absolute Neut Normal 2.0-7.7 [facility] Comment on above: Result Comment: Canc elled via OM: Order cancelled - Patient discharged Performed By: #### L 100.0100, L500.2500 ####[facility] [address] [place], [address] HCT Normal 37-47 [facility] Comment on above: Result Comment: Canc elled via OM: Order cancelled - Patient discharged Performed By: #### L 100.0100, L500.2500 ####[facility] [address] [place], [address] HGB Normal 12.0-15.0 [facility] Comment on above: Result Comment: Canc elled via OM: Order cancelled - Patient discharged Performed By: #### L 100.0100, L500.2500 ####[facility] [address] [place], [address] MCH Normal 27.0-32.0 [facility] Comment on above: Result Comment: Canc elled via OM: Order cancelled - Patient discharged Performed By: #### L 100.0100, L500.2500 ####[facility] [address] [place], [address] MCHC Normal 32-36 [facility] Comment on above: Result Comment: Canc elled via OM: Order cancelled - Patient discharged Performed By: #### L 100.0100, L500.2500 ####[facility] [address] [place], [address] MCV Normal 81-99 [facility] Comment on above: Result Comment: Canc elled via OM: Order cancelled - Patient discharged Performed By: #### L 100.0100, L500.2500 ####[facility] [address] [place], [address] NEUT% Normal 47-70 [facility] Comment on above: Result Comment: Canc elled via OM: Order cancelled - Patient discharged Performed By: #### L 100.0100, L500.2500 ####[facility] [address] [place], [address] PLT Normal 150-450 [facility] Comment on above: Result Comment: Canc elled via OM: Order cancelled - Patient discharged Performed By: #### L 100.0100, L500.2500 ####[facility] [address] [place], [address] RBC Normal 4.2-5.4 [facility] Comment on above: Result Comment: Canc elled via OM: Order cancelled - Patient discharged Performed By: #### L 100.0100, L500.2500 ####[facility] [address] [place], [address] RDW CV Normal 11.6-14.6 [facility] Comment on above: Result Comment: Canc elled via OM: Order cancelled - Patient discharged Performed By: #### L 100.0100, L500.2500 ####[facility] [address] [place], [address] RDW SD Normal 35.1-43.9 [facility] Comment on above: Result Comment: Canc elled via OM: Order cancelled - Patient discharged Performed By: #### L 100.0100, L500.2500 ####[facility] [address] [place], [address] WBC Normal 4.4-11.0 [facility] Comment on above: Result Comment: Canc elled via OM: Order cancelled - Patient discharged Performed By: #### L 100.0100, L500.2500 ####[facility] [address] [place], [address] Absolute lymphocyte countOrd ered By: Renee Encarnacion on 07-26-2025 Lymphocytes Auto (Unsp spec) [#/Vol] 2.80 10*3/uL 0.83-4.51 [facility] Anion gap in Serum or Plasma Ordered By: Renee Dominiquejennifer on 07-26-2025 Anion gap [Moles/Vol] 13 mmol/L 5-15 [facility] Automated lymphocyte count a s percentage of total leukocytesOrdered By: Renee Dominiquejennifer on 07-26-2025 Lymphocytes/100 WBC Auto (Unsp spec) 27.0 % 19-41 [facility] BUN/creatinine ratioOrdered By: Reneeteofilo Encarnacion on 07-26-2025 Urea nitrogen/Creatinine [Mass ratio] 30.2 mg/mg High 08-11 [facility] Basic Metabolic Profile (BMP )on 07-26-2025 BUN/CRE 30.2 RATIO High 08-11 [facility] Comment on above: Performed By: #### L 500.2500, L100.0100 ####[facility] [address] [place], [address] Calcium [Mass/Vol] 8.9 mg/dL Normal 7.6-11.0 [facility] Comment on above: Performed By: #### L 500.2500, L100.0100 ####[facility] [address] [place], [address] Chloride [Moles/Vol] 96 mmol/L Low 98-108 [facility] Comment on above: Performed By: #### L 500.2500, L100.0100 ####[facility] [address] [place], [address] CO2 [Moles/Vol] 25.7 mmol/L Normal 21.0-32.0 [facility] Comment on above: Performed By: #### L 500.2500, L100.0100 ####[facility] [address] [place], [address] Creatinine [Mass/Vol] 0.70 mg/dL Normal 0.70-1.20 [facility] Comment on above: Performed By: #### L 500.2500, L100.0100 ####[facility] [address] [place], [address] ECRCL 46.43 ml/min Low 50-250 [facility] Comment on above: Performed By: #### L 500.2500, L100.0100 ####[facility] [address] [place], [address] GAP 13 Normal 5-15 [facility] Comment on above: Performed By: #### L 500.2500, L100.0100 ####[facility] [address] [place], [address] GFR/1.73 sq M.predicted among non-blacks MDRD (S/P/Bld) [Vol rate/Area] 92 mL/min/{1.73_m2} Normal >60 [facility] Comment on above: Result Comment: mL/m in/1.73m2 CKD-EPI Creatinine Equation (2020) Performed By: #### L 500.2500, L100.0100 ####[facility] [address] [place], [address] Glucose [Mass/Vol] 98 mg/dL Normal 70-99 [facility] Comment on above: Performed By: #### L 500.2500, L100.0100 ####[facility] [address] [place], [address] Potassium [Moles/Vol] 2.8 mmol/L Low 3.3-5.1 [facility] Comment on above: Result Comment: Hemo lysis present, Results??could be affected.?? Performed By: #### L 500.2500, L100.0100 ####[facility] [address] [place], [address] Sodium [Moles/Vol] 135 mmol/L Normal 133-145 [facility] Comment on above: Performed By: #### L 500.2500, L100.0100 ####[facility] [address] [place], [address] Urea nitrogen [Mass/Vol] 21 mg/dL High 4-19 [facility] Comment on above: Performed By: #### L 500.2500, L100.0100 ####[facility] [address] [place], [address] Basophil percentageOrdered B y: Renee Encarnacion on 07-26-2025 Basophils/100 WBC (Bld) 0.1 % 0-1 [facility] Bedside Glucoseon 07-26-2025 FINGERSTICK GLU 101 mg/dL Normal 74-106 [facility] Comment on above: Result Comment: CHERYL WILLS OF PATIENT CARE PER NURSING PROTOCOL Performed By: #### L 501.080 ####[facility] [address] [place], [address] CBC W/Diff, Automatedon 10-0 Absolute Lymph 2.80 X10 3/uL Normal 0.83-4.51 [facility] Comment on above: Performed By: #### L 500.2500, L100.0100 ####[facility] [address] [place], [address] Absolute Neut 6.2 X10 3/uL Normal 2.0-7.7 [facility] Comment on above: Performed By: #### L 500.2500, L100.0100 ####[facility] [address] [place], [address] Basophils/100 WBC (Bld) 0.1 % Normal 0-1 [facility] Comment on above: Performed By: #### L 500.2500, L100.0100 ####[facility] [address] [place], [address] Eosinophils/100 WBC (Bld) 0.9 % Normal 0-5 [facility] Comment on above: Performed By: #### L 500.2500, L100.0100 ####[facility] [address] [place], [address] Erythrocyte distribution width (RBC) [Ratio] 14.0 % Normal 11.6-14.6 [facility] Comment on above: Performed By: #### L 500.2500, L100.0100 ####[facility] [address] [place], [address] Hematocrit (Bld) [Volume fraction] 28.6 % Low 37-47 [facility] Comment on above: Performed By: #### L 500.2500, L100.0100 ####[facility] [address] [place], [address] Hemoglobin (Bld) [Mass/Vol] 9.6 g/dL Low 12.0-15.0 [facility] Comment on above: Performed By: #### L 500.2500, L100.0100 ####[facility] [address] [place], [address] IG% 2.900 High 0.0-0.9 [facility] Comment on above: Result Comment: IG% - Immature Granulocytes (promyelocytes, myelocytes andmetamyelocytes) > 1% indicates that a LEFT SHIFT is Present. Performed By: #### L 500.2500, L100.0100 ####[facility] [address] [place], [address] Lymphocytes/100 WBC (Bld) 27.0 % Normal 19-41 [facility] Comment on above: Performed By: #### L 500.2500, L100.0100 ####[facility] [address] [place], [address] MCH (RBC) [Entitic mass] 28.3 pg Normal 27.0-32.0 [facility] Comment on above: Performed By: #### L 500.2500, L100.0100 ####[facility] [address] [place], [address] MCHC (RBC) [Mass/Vol] 33.6 g/dL Normal 32-36 [facility] Comment on above: Performed By: #### L 500.2500, L100.0100 ####[facility] [address] [place], [address] MCV (RBC) [Entitic vol] 84.4 fL Normal 81-99 [facility] Comment on above: Performed By: #### L 500.2500, L100.0100 ####[facility] [address] [place], [address] Monocytes/100 WBC (Bld) 9.7 % Normal 0-10 [facility] Comment on above: Performed By: #### L 500.2500, L100.0100 ####[facility] [address] [place], [address] Neutrophils/100 WBC (Bld) 59.4 % Normal 47-70 [facility] Comment on above: Performed By: #### L 500.2500, L100.0100 ####[facility] [address] [place], [address] Nucleated RBC (Bld) [#/Vol] 0 10*3/uL Normal 0-5 [facility] Comment on above: Performed By: #### L 500.2500, L100.0100 ####[facility] [address] [place], [address] Platelet mean volume (Bld) [Entitic vol] 9.6 fL Normal 6.2-12.0 [facility] Comment on above: Performed By: #### L 500.2500, L100.0100 ####[facility] [address] [place], [address] Platelets (Bld) [#/Vol] 482 10*3/uL High 150-450 [facility] Comment on above: Performed By: #### L 500.2500, L100.0100 ####[facility] [address] [place], [address] RBC (Bld) [#/Vol] 3.39 10*6/uL Low 4.2-5.4 [facility] Comment on above: Performed By: #### L 500.2500, L100.0100 ####[facility] [address] [place], [address] RDW SD 43.3 fl Normal 35.1-43.9 [facility] Comment on above: Performed By: #### L 500.2500, L100.0100 ####[facility] [address] [place], [address] WBC (Bld) [#/Vol] 10.4 10*3/uL Normal 4.4-11.0 [facility] Comment on above: Performed By: #### L 500.2500, L100.0100 ####[facility] [address] [place], [address] Carbon dioxide, total [Moles /volume] in Central venous bloodOrdered By: Renee Encarnacion on 07-26-2025 CO2 [Moles/Vol] 25.7 mmol/L 21.0-32.0 [facility] Chloride assayOrdered By: Viki Encarnacion on 07-26-2025 Chloride [Moles/Vol] 96 mmol/L Low 98-108 [facility] Consultation - Cardiologyon 07-26-2025 Consultation - Cardiology Normal [facility] Eosinophil percentageOrdered By: Renee Encarnacion on 07-26-2025 Eosinophils/100 WBC (Bld) 0.9 % 0-5 [facility] Erythrocyte distribution wid th ratioOrdered By: Renee Encarnacion on 07-26-2025 Erythrocyte distribution width (RBC) [Ratio] 14.0 % 11.6-14.6 [facility] Erythrocyte distribution wid th standard deviationOrdered By: Renee Encarnacion on 07-26-2025 Erythrocyte distribution width (RBC) [Ratio] 43.3 fl 35.1-43.9 [facility] Glomerular filtration rate ( GFR) estimation/1.73 sq m using serum, plasma, or whole bOrdered By: Renee Encarnacion on 07-26-2025 GFR/1.73 sq M.predicted among non-blacks MDRD (S/P/Bld) [Vol rate/Area] 92 mL/min/{1.73_m2} >60 [facility] Gl[facility] deOrdered By: Renee Encarnacion on 07-26-2025 Glucose [Mass/Vol] 101 mg/dL 74-106 [facility] Hematocrit Auto (Bld) [Volum e fraction]Ordered By: Reneeteofilo Encarnacion on 07-26-2025 Hematocrit (Bld) [Volume fraction] 28.6 % Low 37-47 [facility] Hemoglobin measurementOrdere d By: Renee Encarnacion on 07-26-2025 Hemoglobin (Bld) [Mass/Vol] 9.6 g/dL Low 12.0-15.0 [facility] Immature granulocytes/100 WB C Auto (Bld)Ordered By: Reneeteofilo Encarnacion on 07-26-2025 Immature granulocytes/100 WBC (Bld) 2.900 % High 0.0-0.9 [facility] MCV (mean corpuscular volume ) determinationOrdered By: Renee Encarnacion on 07-26-2025 MCV (RBC) [Entitic vol] 84.4 fL 81-99 [facility] Magnesiumon 07-26-2025 Magnesium [Mass/Vol] 2.2 mg/dL Normal 1.5-2.2 [facility] Comment on above: Performed By: #### L 501.5200 ####[facility] [address] [place], [address] Magnesium measurement (mass/ volume)Ordered By: Renee Encarnacion on 07-26-2025 Magnesium (Unsp spec) [Mass/Vol] 2.2 mg/dL 1.5-2.2 [facility] Mean corpuscular hemoglobin (MCH) determinationOrdered By: Renee Encarnacion on 07-26-2025 MCH (RBC) [Entitic mass] 28.3 pg 27.0-32.0 [facility] Monocyte percentageOrdered B y: Renee Alysha on 07-26-2025 Monocytes/100 WBC (Bld) 9.7 % 0-10 [facility] Neutrophil percentageOrdered By: Renee Encarnacion on 07-26-2025 Neutrophils/100 WBC (Bld) 59.4 % 47-70 [facility] Platelet countOrdered By: Viki Encarnacion on 07-26-2025 Platelets (Bld) [#/Vol] 482 10*3/uL High 150-450 [facility] Potassium measurement (mass/ volume)Ordered By: Renee Encarnacion on 07-26-2025 Potassium (Unsp spec) [Mass/Vol] 2.8 mmol/L Low 3.3-5.1 [facility] RBC Auto (Bld) [#/Vol]Ordere d By: Renee Encarnacion on 07-26-2025 RBC (Bld) [#/Vol] 3.39 10*6/uL Low 4.2-5.4 [facility] Serum creatinine measurement (mass/volume)Ordered By: Renee Encarnacion on 07-26-2025 Creatinine [Mass/Vol] 0.70 mg/dL 0.70-1.20 [facility] Serum glucose measurement (m ass/volume)Ordered By: Renee Encarnacion on 07-26-2025 Glucose [Mass/Vol] 98 mg/dL 70-99 [facility] Serum or plasma calcium erik urement (mass/volume)Ordered By: Renee Encarnacion on 07-26-2025 Calcium [Mass/Vol] 8.9 mg/dL 7.6-11.0 [facility] Serum or plasma urea nitroge n measurement (mass/volume)Ordered By: Renee Encarnacion on 07-26-2025 Urea nitrogen [Mass/Vol] 21 mg/dL High 4-19 [facility] Sodium levelOrdered By: Renee Encarnacion on 07-26-2025 Sodium [Moles/Vol] 135 mmol/L 133-145 [facility] White blood cell (WBC) count Ordered By: Renee Encarnacion on 07-26-2025 WBC (Bld) [#/Vol] 10.4 10*3/uL 4.4-11.0 [facility] Basic Metabolic Profile (BMP )on 07-25-2025 BUN/CRE 36.1 RATIO High 10-20 [facility] Comment on above: Performed By: #### L 100.0100, L500.2500 ####[facility] [address] [place], [address] Calcium [Mass/Vol] 8.7 mg/dL Normal 7.6-11.0 [facility] Comment on above: Performed By: #### L 100.0100, L500.2500 ####[facility] [address] [place], [address] Chloride [Moles/Vol] 98 mmol/L Normal 98-108 [facility] Comment on above: Performed By: #### L 100.0100, L500.2500 ####[facility] [address] [place], [address] CO2 [Moles/Vol] 26.7 mmol/L Normal 21.0-32.0 [facility] Comment on above: Performed By: #### L 100.0100, L500.2500 ####[facility] [address] [place], [address] Creatinine [Mass/Vol] 0.70 mg/dL Normal 0.70-1.20 [facility] Comment on above: Performed By: #### L 100.0100, L500.2500 ####[facility] [address] [place], [address] ECRCL 46.84 ml/min Low 50-250 [facility] Comment on above: Performed By: #### L 100.0100, L500.2500 ####[facility] [address] [place], [address] GAP 12 Normal 5-15 [facility] Comment on above: Performed By: #### L 100.0100, L500.2500 ####[facility] [address] [place], [address] GFR/1.73 sq M.predicted among non-blacks MDRD (S/P/Bld) [Vol rate/Area] 92 mL/min/{1.73_m2} Normal >60 [facility] Comment on above: Result Comment: mL/m in/1.73m2 CKD-EPI Creatinine Equation (2020) Performed By: #### L 100.0100, L500.2500 ####[facility] [address] [place], [address] Glucose [Mass/Vol] 102 mg/dL High 70-99 [facility] Comment on above: Performed By: #### L 100.0100, L500.2500 ####[facility] [address] [place], [address] Potassium [Moles/Vol] 3.0 mmol/L Low 3.3-5.1 [facility] Comment on above: Performed By: #### L 100.0100, L500.2500 ####[facility] [address] [place], [address] Sodium [Moles/Vol] 137 mmol/L Normal 133-145 [facility] Comment on above: Performed By: #### L 100.0100, L500.2500 ####[facility] [address] [place], [address] Urea nitrogen [Mass/Vol] 25 mg/dL High 4-19 [facility] Comment on above: Performed By: #### L 100.0100, L500.2500 ####[facility] [address] [place], [address] Bedside Glucoseon 07-25-2025 FINGERSTICK GLU 114 mg/dL High 74-106 [facility] Comment on above: Result Comment: CHERYL WILLS OF PATIENT CARE PER NURSING PROTOCOL Performed By: #### L 501.080 ####[facility] [address] [place], [address] FINGERSTICK GLU 163 mg/dL High 74-106 [facility] Comment on above: Result Comment: CHERYL GEMENT OF PATIENT CARE PER NURSING PROTOCOL Performed By: #### L 501.080 ####[facility] [address] [place], [address] FINGERSTICK GLU 129 mg/dL High 74-106 [facility] Comment on above: Result Comment: CHERYL GEMENT OF PATIENT CARE PER NURSING PROTOCOL Performed By: #### L 501.080 ####[facility] [address] [place], [address] FINGERSTICK GLU 111 mg/dL High 74-106 [facility] Comment on above: Result Comment: CHERYL GEMENT OF PATIENT CARE PER NURSING PROTOCOL Performed By: #### L 501.080 ####[facility] [address] [place], [address] CBC W/Diff, Automatedon 10-0 3-2025 Absolute Lymph 2.65 X10 3/uL Normal 0.83-4.51 [facility] Comment on above: Performed By: #### L 100.0100, L500.2500 ####[facility] [address] [place], [address] Absolute Neut 6.4 X10 3/uL Normal 2.0-7.7 [facility] Comment on above: Performed By: #### L 100.0100, L500.2500 ####[facility] [address] [place], [address] Basophils/100 WBC (Bld) 0.2 % Normal 0-1 [facility] Comment on above: Performed By: #### L 100.0100, L500.2500 ####[facility] [address] [place], [address] Eosinophils/100 WBC (Bld) 1.1 % Normal 0-5 [facility] Comment on above: Performed By: #### L 100.0100, L500.2500 ####[facility] [address] [place], [address] Erythrocyte distribution width (RBC) [Ratio] 13.9 % Normal 11.6-14.6 [facility] Comment on above: Performed By: #### L 100.0100, L500.2500 ####[facility] [address] [place], [address] Hematocrit (Bld) [Volume fraction] 29.8 % Low 37-47 [facility] Comment on above: Performed By: #### L 100.0100, L500.2500 ####[facility] [address] [place], [address] Hemoglobin (Bld) [Mass/Vol] 9.9 g/dL Low 12.0-15.0 [facility] Comment on above: Performed By: #### L 100.0100, L500.2500 ####[facility] [address] [place], [address] IG% 1.800 High 0.0-0.9 [facility] Comment on above: Result Comment: IG% - Immature Granulocytes (promyelocytes, myelocytes andmetamyelocytes) > 1% indicates that a LEFT SHIFT is Present. Performed By: #### L 100.0100, L500.2500 ####[facility] [address] [place], [address] Lymphocytes/100 WBC (Bld) 25.5 % Normal 19-41 [facility] Comment on above: Performed By: #### L 100.0100, L500.2500 ####[facility] [address] [place], [address] MCH (RBC) [Entitic mass] 28.7 pg Normal 27.0-32.0 [facility] Comment on above: Performed By: #### L 100.0100, L500.2500 ####[facility] [address], [address] MCHC (RBC) [Mass/Vol] 33.2 g/dL Normal 32-36 [facility] Comment on above: Performed By: #### L 100.0100, L500.2500 ####[facility] [address] [place], [address] MCV (RBC) [Entitic vol] 86.4 fL Normal 81-99 [facility] Comment on above: Performed By: #### L 100.0100, L500.2500 ####[facility] [address] [place], [address] Monocytes/100 WBC (Bld) 10.5 % High 0-10 [facility] Comment on above: Performed By: #### L 100.0100, L500.2500 ####[facility] [address] [place], [address] Neutrophils/100 WBC (Bld) 60.9 % Normal 47-70 [facility] Comment on above: Performed By: #### L 100.0100, L500.2500 ####[facility] [address] [place], [address] Nucleated RBC (Bld) [#/Vol] 0 10*3/uL Normal 0-5 [facility] Comment on above: Performed By: #### L 100.0100, L500.2500 ####[facility] [address] [place], [address] Platelet mean volume (Bld) [Entitic vol] 9.5 fL Normal 6.2-12.0 [facility] Comment on above: Performed By: #### L 100.0100, L500.2500 ####[facility] [address] [place], [address] Platelets (Bld) [#/Vol] 499 10*3/uL High 150-450 [facility] Comment on above: Performed By: #### L 100.0100, L500.2500 ####[facility] [address] [place], [address] RBC (Bld) [#/Vol] 3.45 10*6/uL Low 4.2-5.4 [facility] Comment on above: Performed By: #### L 100.0100, L500.2500 ####[facility] [address] [place], [address] RDW SD 43.7 fl Normal 35.1-43.9 [facility] Comment on above: Performed By: #### L 100.0100, L500.2500 ####[facility] [address] [place], [address] WBC (Bld) [#/Vol] 10.4 10*3/uL Normal 4.4-11.0 [facility] Comment on above: Performed By: #### L 100.0100, L500.2500 ####[facility] [address] [place], [address] CTA Chest W/WO Contraston CTA Chest W/WO Contrast Normal [facility] D-Dimer Quantitative (DVT/PE )on 07-25-2025 D-DIMER QUANT 1.10 FEU/ug/m Invalid Interpretation Code 0.27-0.49 [facility] Comment on above: Result Comment: D-Di adri ELEVATED (>0.49): Additional studies and clinicalassessments are indicated to conclude diagnosis of:Deep Vein Thrombosis (DVT) or Pulmonary EmbolismCRITICAL VALUE CALLED TO ARDHA VIRK07/25/25 Yokasta Pratt.RESULTS READ BACK BY SAME. Performed By: #### L 300.8000 ####[facility] [address] [place], [address] Basic Metabolic Profile (BMP )on 07-24-2025 BUN/CRE 41.8 RATIO High 10-20 [facility] Comment on above: Performed By: #### L 100.0100, L500.2500 ####[facility] [address] [place], [address] Calcium [Mass/Vol] 8.8 mg/dL Normal 7.6-11.0 [facility] Comment on above: Performed By: #### L 100.0100, L500.2500 ####[facility] [address] [place], [address] Chloride [Moles/Vol] 97 mmol/L Low 98-108 [facility] Comment on above: Performed By: #### L 100.0100, L500.2500 ####[facility] [address] [place], [address] CO2 [Moles/Vol] 25.1 mmol/L Normal 21.0-32.0 [facility] Comment on above: Performed By: #### L 100.0100, L500.2500 ####[facility] [address] [place], [address] Creatinine [Mass/Vol] 0.85 mg/dL Normal 0.70-1.20 [facility] Comment on above: Performed By: #### L 100.0100, L500.2500 ####[facility] [address] [place], [address] ECRCL 45.04 ml/min Low 50-250 [facility] Comment on above: Performed By: #### L 100.0100, L500.2500 ####[facility] [address] [place], [address] GAP 12 Normal 5-15 [facility] Comment on above: Performed By: #### L 100.0100, L500.2500 ####[facility] [address] [place], [address] GFR/1.73 sq M.predicted among non-blacks MDRD (S/P/Bld) [Vol rate/Area] 73 mL/min/{1.73_m2} Normal >60 [facility] Comment on above: Result Comment: mL/m in/1.73m2 CKD-EPI Creatinine Equation (2020) Performed By: #### L 100.0100, L500.2500 ####[facility] [address] [place], [address] Glucose [Mass/Vol] 102 mg/dL High 70-99 [facility] Comment on above: Performed By: #### L 100.0100, L500.2500 ####[facility] [address] [place], [address] Potassium [Moles/Vol] 3.1 mmol/L Low 3.3-5.1 [facility] Comment on above: Performed By: #### L 100.0100, L500.2500 ####[facility] [address] [place], [address] Sodium [Moles/Vol] 135 mmol/L Normal 133-145 [facility] Comment on above: Performed By: #### L 100.0100, L500.2500 ####[facility] [address] [place], [address] Urea nitrogen [Mass/Vol] 36 mg/dL High 4-19 [facility] Comment on above: Performed By: #### L 100.0100, L500.2500 ####[facility] [address] [place], [address] Bedside Glucoseon 07-24-2025 FINGERSTICK GLU 193 mg/dL High 74-106 [facility] Comment on above: Result Comment: CHERYL WILLS OF PATIENT CARE PER NURSING PROTOCOL Performed By: #### L 501.080 ####[facility] [address] [place], [address] FINGERSTICK GLU 135 mg/dL High 74-106 [facility] Comment on above: Result Comment: CHERYL GEMENT OF PATIENT CARE PER NURSING PROTOCOL Performed By: #### L 501.080 ####[facility] [address] [place], [address] FINGERSTICK GLU 138 mg/dL High 74-106 [facility] Comment on above: Result Comment: CHERYL GEMENT OF PATIENT CARE PER NURSING PROTOCOL Performed By: #### L 501.080 ####[facility] [address] [place], [address] FINGERSTICK GLU 97 mg/dL Normal 74-106 [facility] Comment on above: Result Comment: CHERYL GEMENT OF PATIENT CARE PER NURSING PROTOCOL Performed By: #### L 501.080 ####[facility] [address] [place], [address] CBC W/Diff, Automatedon 10-0 2-5 Absolute Lymph 2.58 X10 3/uL Normal 0.83-4.51 [facility] Comment on above: Performed By: #### L 100.0100, L500.2500 ####[facility] [address] [place], [address] Absolute Neut 5.9 X10 3/uL Normal 2.0-7.7 [facility] Comment on above: Performed By: #### L 100.0100, L500.2500 ####[facility] [address] [place], [address] Basophils/100 WBC (Bld) 0.1 % Normal 0-1 [facility] Comment on above: Performed By: #### L 100.0100, L500.2500 ####[facility] [address] [place], [address] Eosinophils/100 WBC (Bld) 0.6 % Normal 0-5 [facility] Comment on above: Performed By: #### L 100.0100, L500.2500 ####[facility] [address] [place], [address] Erythrocyte distribution width (RBC) [Ratio] 14.4 % Normal 11.6-14.6 [facility] Comment on above: Performed By: #### L 100.0100, L500.2500 ####[facility] [address] [place], [address] Hematocrit (Bld) [Volume fraction] 31.8 % Low 37-47 [facility] Comment on above: Performed By: #### L 100.0100, L500.2500 ####[facility] [address] [place], [address] Hemoglobin (Bld) [Mass/Vol] 10.5 g/dL Low 12.0-15.0 [facility] Comment on above: Performed By: #### L 100.0100, L500.2500 ####[facility] [address] [place], [address] IG% 1.700 High 0.0-0.9 [facility] Comment on above: Result Comment: IG% - Immature Granulocytes (promyelocytes, myelocytes andmetamyelocytes) > 1% indicates that a LEFT SHIFT is Present. Performed By: #### L 100.0100, L500.2500 ####[facility] [address] [place], [address] Lymphocytes/100 WBC (Bld) 26.7 % Normal 19-41 [facility] Comment on above: Performed By: #### L 100.0100, L500.2500 ####[facility] [address] [place], [address] MCH (RBC) [Entitic mass] 28.7 pg Normal 27.0-32.0 [facility] Comment on above: Performed By: #### L 100.0100, L500.2500 ####[facility] [address] [place], [address] MCHC (RBC) [Mass/Vol] 33.0 g/dL Normal 32-36 [facility] Comment on above: Performed By: #### L 100.0100, L500.2500 ####[facility] [address] [place], [address] MCV (RBC) [Entitic vol] 86.9 fL Normal 81-99 [facility] Comment on above: Performed By: #### L 100.0100, L500.2500 ####[facility] [address] [place], [address] Monocytes/100 WBC (Bld) 10.0 % Normal 0-10 [facility] Comment on above: Performed By: #### L 100.0100, L500.2500 ####[facility] [address] [place], [address] Neutrophils/100 WBC (Bld) 60.9 % Normal 47-70 [facility] Comment on above: Performed By: #### L 100.0100, L500.2500 ####[facility] [address] [place], [address] Nucleated RBC (Bld) [#/Vol] 0 10*3/uL Normal 0-5 [facility] Comment on above: Performed By: #### L 100.0100, L500.2500 ####[facility] [address] [place], [address] Platelet mean volume (Bld) [Entitic vol] 8.9 fL Normal 6.2-12.0 [facility] Comment on above: Performed By: #### L 100.0100, L500.2500 ####[facility] [address] [place], [address] Platelets (Bld) [#/Vol] 464 10*3/uL High 150-450 [facility] Comment on above: Performed By: #### L 100.0100, L500.2500 ####[facility] [address] [place], [address] RBC (Bld) [#/Vol] 3.66 10*6/uL Low 4.2-5.4 [facility] Comment on above: Performed By: #### L 100.0100, L500.2500 ####[facility] [address] [place], [address] RDW SD 45.8 fl High 35.1-43.9 [facility] Comment on above: Performed By: #### L 100.0100, L500.2500 ####[facility] [address] [place], [address] WBC (Bld) [#/Vol] 9.7 10*3/uL Normal 4.4-11.0 [facility] Comment on above: Performed By: #### L 100.0100, L500.2500 ####[facility] [address] [place], [address] Basic Metabolic Profile (BMP )on 07-23-2025 BUN/CRE 33.7 RATIO High 10-20 [facility] Comment on above: Performed By: #### L 100.0100, L500.2500 ####[facility] [address] [place], [address] Calcium [Mass/Vol] 8.9 mg/dL Normal 7.6-11.0 [facility] Comment on above: Performed By: #### L 100.0100, L500.2500 ####[facility] [address] [place], [address] Chloride [Moles/Vol] 101 mmol/L Normal 98-108 [facility] Comment on above: Performed By: #### L 100.0100, L500.2500 ####[facility] [address] [place], [address] CO2 [Moles/Vol] 25.7 mmol/L Normal 21.0-32.0 [facility] Comment on above: Performed By: #### L 100.0100, L500.2500 ####[facility] [address] [place], [address] Creatinine [Mass/Vol] 0.68 mg/dL Low 0.70-1.20 [facility] Comment on above: Performed By: #### L 100.0100, L500.2500 ####[facility] [address] [place], [address] ECRCL 51.62 ml/min Normal 50-250 [facility] Comment on above: Performed By: #### L 100.0100, L500.2500 ####[facility] [address] [place], [address] GAP 13 Normal 5-15 [facility] Comment on above: Performed By: #### L 100.0100, L500.2500 ####[facility] [address] [place], [address] GFR/1.73 sq M.predicted among non-blacks MDRD (S/P/Bld) [Vol rate/Area] 93 mL/min/{1.73_m2} Normal >60 [facility] Comment on above: Result Comment: mL/m in/1.73m2 CKD-EPI Creatinine Equation (2020) Performed By: #### L 100.0100, L500.2500 ####[facility] [address] [place], [address] Glucose [Mass/Vol] 133 mg/dL High 70-99 [facility] Comment on above: Performed By: #### L 100.0100, L500.2500 ####[facility] [address] [place], [address] Potassium [Moles/Vol] 2.9 mmol/L Low 3.3-5.1 [facility] Comment on above: Performed By: #### L 100.0100, L500.2500 ####[facility] [address] [place], [address] Sodium [Moles/Vol] 140 mmol/L Normal 133-145 [facility] Comment on above: Performed By: #### L 100.0100, L500.2500 ####[facility] [address] [place], [address] Urea nitrogen [Mass/Vol] 23 mg/dL High 4-19 [facility] Comment on above: Performed By: #### L 100.0100, L500.2500 ####[facility] [address] [place], [address] Bedside Glucoseon 07-23-2025 FINGERSTICK GLU 129 mg/dL High 74-106 [facility] Comment on above: Result Comment: CHERYL GEMENT OF PATIENT CARE PER NURSING PROTOCOL Performed By: #### L 501.080 ####[facility] [address] [place], [address] FINGERSTICK GLU 123 mg/dL High 74-106 [facility] Comment on above: Result Comment: CHERYL GEMENT OF PATIENT CARE PER NURSING PROTOCOL Performed By: #### L 501.080 ####[facility] [address] [place], [address] FINGERSTICK GLU 137 mg/dL High 74-106 [facility] Comment on above: Result Comment: CHERYL GEMENT OF PATIENT CARE PER NURSING PROTOCOL Performed By: #### L 501.080 ####[facility] [address] [place], [address] CBC W/Diff, Automatedon 10-0 Absolute Lymph 1.95 X10 3/uL Normal 0.83-4.51 [facility] Comment on above: Performed By: #### L 100.0100, L500.2500 ####[facility] [address] [place], [address] Absolute Neut 7.6 X10 3/uL Normal 2.0-7.7 [facility] Comment on above: Performed By: #### L 100.0100, L500.2500 ####[facility] [address] [place], [address] Basophils/100 WBC (Bld) 0.1 % Normal 0-1 [facility] Comment on above: Performed By: #### L 100.0100, L500.2500 ####[facility] [address] [place], [address] Eosinophils/100 WBC (Bld) 0.1 % Normal 0-5 [facility] Comment on above: Performed By: #### L 100.0100, L500.2500 ####[facility] [address] [place], [address] Erythrocyte distribution width (RBC) [Ratio] 15.0 % High 11.6-14.6 [facility] Comment on above: Performed By: #### L 100.0100, L500.2500 ####[facility] [address] [place], [address] Hematocrit (Bld) [Volume fraction] 29.6 % Low 37-47 [facility] Comment on above: Performed By: #### L 100.0100, L500.2500 ####[facility] [address] [place], [address] Hemoglobin (Bld) [Mass/Vol] 9.9 g/dL Low 12.0-15.0 [facility] Comment on above: Performed By: #### L 100.0100, L500.2500 ####[facility] [address] [place], [address] IG% 2.000 High 0.0-0.9 [facility] Comment on above: Result Comment: IG% - Immature Granulocytes (promyelocytes, myelocytes andmetamyelocytes) > 1% indicates that a LEFT SHIFT is Present. Performed By: #### L 100.0100, L500.2500 ####[facility] [address] [place], [address] Lymphocytes/100 WBC (Bld) 17.3 % Low 19-41 [facility] Comment on above: Performed By: #### L 100.0100, L500.2500 ####[facility] [address] [place], [address] MCH (RBC) [Entitic mass] 29.0 pg Normal 27.0-32.0 [facility] Comment on above: Performed By: #### L 100.0100, L500.2500 ####[facility] [address] [place], [address] MCHC (RBC) [Mass/Vol] 33.4 g/dL Normal 32-36 [facility] Comment on above: Performed By: #### L 100.0100, L500.2500 ####[facility] [address] [place], [address] MCV (RBC) [Entitic vol] 86.8 fL Normal 81-99 [facility] Comment on above: Performed By: #### L 100.0100, L500.2500 ####[facility] [address] [place], [address] Monocytes/100 WBC (Bld) 13.0 % High 0-10 [facility] Comment on above: Performed By: #### L 100.0100, L500.2500 ####[facility] [address] [place], [address] Neutrophils/100 WBC (Bld) 67.5 % Normal 47-70 [facility] Comment on above: Performed By: #### L 100.0100, L500.2500 ####[facility] [address] [place], [address] Nucleated RBC (Bld) [#/Vol] 0 10*3/uL Normal 0-5 [facility] Comment on above: Performed By: #### L 100.0100, L500.2500 ####[facility] [address] [place], [address] Platelet mean volume (Bld) [Entitic vol] 9.3 fL Normal 6.2-12.0 [facility] Comment on above: Performed By: #### L 100.0100, L500.2500 ####[facility] [address] [place], [address] Platelets (Bld) [#/Vol] 436 10*3/uL Normal 150-450 [facility] Comment on above: Performed By: #### L 100.0100, L500.2500 ####[facility] [address] [place], [address] RBC (Bld) [#/Vol] 3.41 10*6/uL Low 4.2-5.4 [facility] Comment on above: Performed By: #### L 100.0100, L500.2500 ####[facility] [address] [place], [address] RDW SD 47.5 fl High 35.1-43.9 [facility] Comment on above: Performed By: #### L 100.0100, L500.2500 ####[facility] [address] [place], [address] WBC (Bld) [#/Vol] 11.3 10*3/uL High 4.4-11.0 [facility] Comment on above: Performed By: #### L 100.0100, L500.2500 ####[facility] [address] [place], [address] Magnesiumon 07-23-2025 Magnesium [Mass/Vol] 2.3 mg/dL High 1.5-2.2 [facility] Comment on above: Performed By: #### L 501.5200 ####[facility] [address] [place], [address] Absolute lymphocyte countOrd ered By: Renee Alysha on 07-22-2025 Lymphocytes Auto (Unsp spec) [#/Vol] 1.00 10*3/uL 0.83-4.51 [facility] Anion gap in Serum or Plasma Ordered By: Renee Encarnacion on 07-22-2025 Anion gap [Moles/Vol] 14 mmol/L 5-15 [facility] Automated lymphocyte count a s percentage of total leukocytesOrdered By: Reneeteofilo Encarnacion on 07-22-2025 Lymphocytes/100 WBC Auto (Unsp spec) 8.4 % Low 19-41 [facility] BUN/creatinine ratioOrdered By: Renee Encarnacion on 07-22-2025 Urea nitrogen/Creatinine [Mass ratio] 39.5 mg/mg High 10-20 [facility] Basic Metabolic Profile (BMP )on 07-22-2025 BUN/CRE 39.5 RATIO High - [facility] Comment on above: Performed By: #### L 100.0100, L500.2500 ####[facility] [address] [place], [address] Calcium [Mass/Vol] 8.3 mg/dL Normal 7.6-11.0 [facility] Comment on above: Performed By: #### L 100.0100, L500.2500 ####[facility] [address] [place], [address] Chloride [Moles/Vol] 106 mmol/L Normal 98-108 [facility] Comment on above: Performed By: #### L 100.0100, L500.2500 ####[facility] [address] [place], [address] CO2 [Moles/Vol] 22.3 mmol/L Normal 21.0-32.0 [facility] Comment on above: Performed By: #### L 100.0100, L500.2500 ####[facility] [address] [place], [address] Creatinine [Mass/Vol] 0.76 mg/dL Normal 0.70-1.20 [facility] Comment on above: Performed By: #### L 100.0100, L500.2500 ####[facility] [address] [place], [address] ECRCL 52.85 ml/min Normal 50-250 [facility] Comment on above: Performed By: #### L 100.0100, L500.2500 ####[facility] [address] [place], [address] GAP 14 Normal 5-15 [facility] Comment on above: Performed By: #### L 100.0100, L500.2500 ####[facility] [address] [place], [address] GFR/1.73 sq M.predicted among non-blacks MDRD (S/P/Bld) [Vol rate/Area] 84 mL/min/{1.73_m2} Normal >60 [facility] Comment on above: Result Comment: mL/m in/1.73m2 CKD-EPI Creatinine Equation (2020) Performed By: #### L 100.0100, L500.2500 ####[facility] [address] [place], [address] Glucose [Mass/Vol] 160 mg/dL High 70-99 [facility] Comment on above: Performed By: #### L 100.0100, L500.2500 ####[facility] [address] [place], [address] Potassium [Moles/Vol] 3.2 mmol/L Low 3.3-5.1 [facility] Comment on above: Performed By: #### L 100.0100, L500.2500 ####[facility] [address] [place], [address] Sodium [Moles/Vol] 142 mmol/L Normal 133-145 [facility] Comment on above: Performed By: #### L 100.0100, L500.2500 ####[facility] [address] [place], [address] Urea nitrogen [Mass/Vol] 30 mg/dL High 4-19 [facility] Comment on above: Performed By: #### L 100.0100, L500.2500 ####[facility] [address] [place], [address] Basophil percentageOrdered B y: Renee Encarnacion on 07-22-2025 Basophils/100 WBC (Bld) 0.3 % 0-1 [facility] Bedside Glucoseon 07-22-2025 FINGERSTICK GLU 136 mg/dL High 74-106 [facility] Comment on above: Result Comment: CHERYL GEMENT OF PATIENT CARE PER NURSING PROTOCOL Performed By: #### L 501.080 ####[facility] [address] [place], [address] FINGERSTICK GLU 233 mg/dL High 74-106 [facility] Comment on above: Result Comment: CHERYL GEMENT OF PATIENT CARE PER NURSING PROTOCOL Performed By: #### L 501.080 ####[facility] [address] [place], [address] FINGERSTICK GLU 174 mg/dL High 74-106 [facility] Comment on above: Result Comment: CHERYL GEMENT OF PATIENT CARE PER NURSING PROTOCOL Performed By: #### L 501.080 ####[facility] [address] [place], [address] FINGERSTICK GLU 169 mg/dL High 74-106 [facility] Comment on above: Result Comment: CHERYL GEMENT OF PATIENT CARE PER NURSING PROTOCOL Performed By: #### L 501.080 ####[facility] [address] [place], [address] CBC W/Diff, Automatedon 09-3 0-2025 Absolute Lymph 1.00 X10 3/uL Normal 0.83-4.51 [facility] Comment on above: Performed By: #### L 100.0100, L500.2500 ####[facility] [address] [place], [address] Absolute Neut 10.0 X10 3/uL High 2.0-7.7 [facility] Comment on above: Performed By: #### L 100.0100, L500.2500 ####[facility] [address] [place], [address] Basophils/100 WBC (Bld) 0.3 % Normal 0-1 [facility] Comment on above: Performed By: #### L 100.0100, L500.2500 ####[facility] [address] [place], [address] Eosinophils/100 WBC (Bld) 0.0 % Normal 0-5 [facility] Comment on above: Performed By: #### L 100.0100, L500.2500 ####[facility] [address] [place], [address] Erythrocyte distribution width (RBC) [Ratio] 15.3 % High 11.6-14.6 [facility] Comment on above: Performed By: #### L 100.0100, L500.2500 ####[facility] [address] [place], [address] Hematocrit (Bld) [Volume fraction] 32.9 % Low 37-47 [facility] Comment on above: Performed By: #### L 100.0100, L500.2500 ####[facility] [address] [place], [address] Hemoglobin (Bld) [Mass/Vol] 10.7 g/dL Low 12.0-15.0 [facility] Comment on above: Performed By: #### L 100.0100, L500.2500 ####[facility] [address] [place], [address] IG% 2.500 High 0.0-0.9 [facility] Comment on above: Result Comment: IG% - Immature Granulocytes (promyelocytes, myelocytes andmetamyelocytes) > 1% indicates that a LEFT SHIFT is Present. Performed By: #### L 100.0100, L500.2500 ####[facility] [address] [place], [address] Lymphocytes/100 WBC (Bld) 8.4 % Low 19-41 [facility] Comment on above: Performed By: #### L 100.0100, L500.2500 ####[facility] [address] [place], [address] MCH (RBC) [Entitic mass] 28.8 pg Normal 27.0-32.0 [facility] Comment on above: Performed By: #### L 100.0100, L500.2500 ####[facility] [address] [place], [address] MCHC (RBC) [Mass/Vol] 32.5 g/dL Normal 32-36 [facility] Comment on above: Performed By: #### L 100.0100, L500.2500 ####[facility] [address] [place], [address] MCV (RBC) [Entitic vol] 88.7 fL Normal 81-99 [facility] Comment on above: Performed By: #### L 100.0100, L500.2500 ####[facility] [address] [place], [address] Monocytes/100 WBC (Bld) 4.1 % Normal 0-10 [facility] Comment on above: Performed By: #### L 100.0100, L500.2500 ####[facility] [address] [place], [address] Neutrophils/100 WBC (Bld) 84.7 % High 47-70 [facility] Comment on above: Performed By: #### L 100.0100, L500.2500 ####[facility] [address] [place], [address] Nucleated RBC (Bld) [#/Vol] 0 10*3/uL Normal 0-5 [facility] Comment on above: Performed By: #### L 100.0100, L500.2500 ####[facility] [address] [place], [address] Platelet mean volume (Bld) [Entitic vol] 9.5 fL Normal 6.2-12.0 [facility] Comment on above: Performed By: #### L 100.0100, L500.2500 ####[facility] [address] [place], [address] Platelets (Bld) [#/Vol] 452 10*3/uL High 150-450 [facility] Comment on above: Performed By: #### L 100.0100, L500.2500 ####[facility] [address] [place], [address] RBC (Bld) [#/Vol] 3.71 10*6/uL Low 4.2-5.4 [facility] Comment on above: Performed By: #### L 100.0100, L500.2500 ####[facility] [address] [place], [address] RDW SD 49.1 fl High 35.1-43.9 [facility] Comment on above: Performed By: #### L 100.0100, L500.2500 ####[facility] [address] [place], [address] WBC (Bld) [#/Vol] 11.8 10*3/uL High 4.4-11.0 [facility] Comment on above: Performed By: #### L 100.0100, L500.2500 ####[facility] [id number] [place], [address] Carbon dioxide, total [Moles /volume] in Central venous bloodOrdered By: Renee Encarnacion on 07-22-2025 CO2 [Moles/Vol] 22.3 mmol/L 21.0-32.0 [facility] Chloride assayOrdered By: Na na Alysha on 07-22-2025 Chloride [Moles/Vol] 106 mmol/L 98-108 [facility] [place] Eosinophil percentageOrdered By: Renee Encarnacion on 07-22-2025 Eosinophils/100 WBC (Bld) 0.0 % 0-5 [facility] Erythrocyte distribution wid th ratioOrdered By: Reneeteofilo Encarnacion on 07-22-2025 Erythrocyte distribution width (RBC) [Ratio] 15.3 % High 11.6-14.6 [facility] Erythrocyte distribution wid th standard deviationOrdered By: Renee [facility]enn[facility] on 07-22-2025 Erythrocyte distribution width (RBC) [Ratio] 49.1 fl High 35.1-43.9 [facility] Glomerular filtration rate ( GFR) estimation/1.73 sq m using serum, plasma, or whole bOrdered By: Renee Encarnacion on 07-22-2025 GFR/1.73 sq M.predicted among non-blacks MDRD (S/P/Bld) [Vol rate/Area] 84 mL/min/{1.73_m2} >60 [facility] Glucose measurement at [facility] deOrdered By: Renee Encarnacion on 07-22-2025 Glucose [Mass/Vol] 136 mg/dL High 74-106 [facility] Hematocrit Auto (Bld) [Volum e fraction]Ordered By: Renee Encarnacion on 07-22-2025 Hematocrit (Bld) [Volume fraction] 32.9 % Low 37-47 [facility] Hemoglobin measurementOrdere d By: Renee Encarnacion on 07-22-2025 Hemoglobin (Bld) [Mass/Vol] 10.7 g/dL Low 12.0-15.0 [facility] Immature granulocytes/100 WB C Auto (Bld)Ordered By: Renee Encarnacion on 07-22-2025 Immature granulocytes/100 WBC (Bld) 2.500 % High 0.0-0.9 [facility] MCV (mean corpuscular volume ) determinationOrdered By: Renee Encarnacion on 07-22-2025 MCV (RBC) [Entitic vol] 88.7 fL 81-99 [facility] MR/CON.PCM.PAon 07-22-2025 MR/CON.PCM.PA Normal [facility] Mean corpuscular hemoglobin (MCH) determinationOrdered By: Renee Encarnacion on 07-22-2025 MCH (RBC) [Entitic mass] 28.8 pg 27.0-32.0 [facility] Modified Barium Swallow Stud yon 07-22-2025 Modified Barium Swallow Study Normal [facility] Monocyte percentageOrdered B y: Renee Encarnacion on 07-22-2025 Monocytes/100 WBC (Bld) 4.1 % 0-10 [facility] Neutrophil percentageOrdered By: Renee Encarnacion on 07-22-2025 Neutrophils/100 WBC (Bld) 84.7 % High 47-70 [facility] Platelet countOrdered By: Viki Encarnacion on 07-22-2025 Platelets (Bld) [#/Vol] 452 10*3/uL High 150-450 [facility] Potassium measurement (mass/ volume)Ordered By: Renee Encarnacion on 07-22-2025 Potassium (Unsp spec) [Mass/Vol] 3.2 mmol/L Low 3.3-5.1 [facility] RBC Auto (Bld) [#/Vol]Ordere d By: Renee Encarnacion on 07-22-2025 RBC (Bld) [#/Vol] 3.71 10*6/uL Low 4.2-5.4 [facility] Serum creatinine measurement (mass/volume)Ordered By: Renee Encarnacion on 07-22-2025 Creatinine [Mass/Vol] 0.76 mg/dL 0.70-1.20 [facility] Serum glucose measurement (m ass/volume)Ordered By: Renee Encarnacion on 07-22-2025 Glucose [Mass/Vol] 160 mg/dL High 70-99 [facility] Serum or plasma calcium erik urement (mass/volume)Ordered By: Renee Encarnacion on 07-22-2025 Calcium [Mass/Vol] 8.3 mg/dL 7.6-11.0 [facility] Serum or plasma urea nitroge n measurement (mass/volume)Ordered By: Renee Encarnacion on 07-22-2025 Urea nitrogen [Mass/Vol] 30 mg/dL High 4-19 [facility] Sodium levelOrdered By: Renee Encarnacion on 07-22-2025 Sodium [Moles/Vol] 142 mmol/L 133-145 [facility] White blood cell (WBC) count Ordered By: Renee Encarnacion on 07-22-2025 WBC (Bld) [#/Vol] 11.8 10*3/uL High 4.4-11.0 [facility] Basic Metabolic Profile (BMP )on 07-21-2025 BUN/CRE 47.6 RATIO High 10-20 [facility] Comment on above: Performed By: #### L 100.0100, L500.2500 ####[facility] [address] [place], [address] Calcium [Mass/Vol] 8.6 mg/dL Normal 7.6-11.0 [facility] Comment on above: Performed By: #### L 100.0100, L500.2500 ####[facility] [address] [place], [address] Chloride [Moles/Vol] 104 mmol/L Normal 98-108 [facility] Comment on above: Performed By: #### L 100.0100, L500.2500 ####[facility] [address] [place], [address] CO2 [Moles/Vol] 23.5 mmol/L Normal 21.0-32.0 [facility] Comment on above: Performed By: #### L 100.0100, L500.2500 ####[facility] [address] [place], [address] Creatinine [Mass/Vol] 0.83 mg/dL Normal 0.70-1.20 [facility] Comment on above: Performed By: #### L 100.0100, L500.2500 ####[facility] [address] [place], [address] ECRCL 50.05 ml/min Normal 50-250 [facility] Comment on above: Performed By: #### L 100.0100, L500.2500 ####[facility] [address] [place], [address] GAP 14 Normal 5-15 [facility] Comment on above: Performed By: #### L 100.0100, L500.2500 ####[facility] [address] [place], [address] GFR/1.73 sq M.predicted among non-blacks MDRD (S/P/Bld) [Vol rate/Area] 76 mL/min/{1.73_m2} Normal >60 [facility] Comment on above: Result Comment: mL/m in/1.73m2 CKD-EPI Creatinine Equation (2020) Performed By: #### L 100.0100, L500.2500 ####[facility] [address] [place], [address] Glucose [Mass/Vol] 167 mg/dL High 70-99 [facility] Comment on above: Performed By: #### L 100.0100, L500.2500 ####[facility] [address] [place], [address] Potassium [Moles/Vol] 3.9 mmol/L Normal 3.3-5.1 [facility] Comment on above: Performed By: #### L 100.0100, L500.2500 ####[facility] [address] [place], [address] Sodium [Moles/Vol] 141 mmol/L Normal 133-145 [facility] Comment on above: Performed By: #### L 100.0100, L500.2500 ####[facility] [address] [place], [address] Urea nitrogen [Mass/Vol] 39 mg/dL High 4-19 [facility] Comment on above: Performed By: #### L 100.0100, L500.2500 ####[facility] [address] [place], [address] Bedside Glucoseon 07-21-2025 FINGERSTICK GLU 82 mg/dL Normal 74-106 [facility] Comment on above: Result Comment: CHERYL GEMENT OF PATIENT CARE PER NURSING PROTOCOL Performed By: #### L 501.080 ####[facility] [address] [place], [address] FINGERSTICK GLU 52 mg/dL Low 74-106 [facility] Comment on above: Result Comment: Dr Geovanny pastrana FollowedInsulin GivenMANAGEMENT OF PATIENT CARE PER NURSING PROTOCOL Performed By: #### L 501.080 ####[facility] [address] [place], [address] FINGERSTICK GLU 202 mg/dL High 74-106 [facility] Comment on above: Result Comment: CHERYL GEMENT OF PATIENT CARE PER NURSING PROTOCOL Performed By: #### L 501.080 ####[facility] [address] [place], [address] FINGERSTICK GLU 49 mg/dL Low 74-106 [facility] Comment on above: Result Comment: CHERYL GEMENT OF PATIENT CARE PER NURSING PROTOCOL Performed By: #### L 501.080 ####[facility] [address] [place], [address] FINGERSTICK GLU 126 mg/dL High 74-106 [facility] Comment on above: Result Comment: CHERYL GEMENT OF PATIENT CARE PER NURSING PROTOCOL Performed By: #### L 501.080 ####[facility] [address] [place], [address] FINGERSTICK GLU 161 mg/dL High 74-106 [facility] Comment on above: Result Comment: CHERYL GEMENT OF PATIENT CARE PER NURSING PROTOCOL Performed By: #### L 501.080 ####[facility] [address] [place], [address] FINGERSTICK GLU 159 mg/dL High 74-106 [facility] Comment on above: Result Comment: CHERYL GEMENT OF PATIENT CARE PER NURSING PROTOCOL Performed By: #### L 501.080 ####[facility] [address] [place], [address] CBC W/Diff, Automatedon -2 Absolute Lymph 1.01 X10 3/uL Normal 0.83-4.51 [facility] Comment on above: Performed By: #### L 100.0100, L500.2500 ####[facility] [address] [place], [address] Absolute Neut 9.5 X10 3/uL High 2.0-7.7 [facility] Comment on above: Performed By: #### L 100.0100, L500.2500 ####[facility] [address] [place], [address] Basophils/100 WBC (Bld) 0.3 % Normal 0-1 [facility] Comment on above: Performed By: #### L 100.0100, L500.2500 ####[facility] [address] [place], [address] Eosinophils/100 WBC (Bld) 0.1 % Normal 0-5 [facility] Comment on above: Performed By: #### L 100.0100, L500.2500 ####[facility] [address] [place], [address] Erythrocyte distribution width (RBC) [Ratio] 15.3 % High 11.6-14.6 [facility] Comment on above: Performed By: #### L 100.0100, L500.2500 ####[facility] [address] [place], [address] Hematocrit (Bld) [Volume fraction] 32.5 % Low 37-47 [facility] Comment on above: Performed By: #### L 100.0100, L500.2500 ####[facility] [address] [place], [address] Hemoglobin (Bld) [Mass/Vol] 10.6 g/dL Low 12.0-15.0 [facility] Comment on above: Performed By: #### L 100.0100, L500.2500 ####[facility] [address] [place], [address] IG% 1.800 High 0.0-0.9 [facility] Comment on above: Result Comment: IG% - Immature Granulocytes (promyelocytes, myelocytes andmetamyelocytes) > 1% indicates that a LEFT SHIFT is Present. Performed By: #### L 100.0100, L500.2500 ####[facility] [address] [place], [address] Lymphocytes/100 WBC (Bld) 8.8 % Low 19-41 [facility] Comment on above: Performed By: #### L 100.0100, L500.2500 ####[facility] [address] [place], [address] MCH (RBC) [Entitic mass] 28.6 pg Normal 27.0-32.0 [facility] Comment on above: Performed By: #### L 100.0100, L500.2500 ####[facility] [address] [place], [address] MCHC (RBC) [Mass/Vol] 32.6 g/dL Normal 32-36 [facility] Comment on above: Performed By: #### L 100.0100, L500.2500 ####[facility] [address] [place], [address] MCV (RBC) [Entitic vol] 87.8 fL Normal 81-99 [facility] Comment on above: Performed By: #### L 100.0100, L500.2500 ####[facility] [address] [place], [address] Monocytes/100 WBC (Bld) 5.8 % Normal 0-10 [facility] Comment on above: Performed By: #### L 100.0100, L500.2500 ####[facility] [address] [place], [address] Neutrophils/100 WBC (Bld) 83.2 % High 47-70 [facility] Comment on above: Performed By: #### L 100.0100, L500.2500 ####[facility] [address] [place], [address] Nucleated RBC (Bld) [#/Vol] 0 10*3/uL Normal 0-5 [facility] Comment on above: Performed By: #### L 100.0100, L500.2500 ####[facility] [address], [address] Platelet mean volume (Bld) [Entitic vol] 9.5 fL Normal 6.2-12.0 [facility] Comment on above: Performed By: #### L 100.0100, L500.2500 ####[facility] [address] [place], [address] Platelets (Bld) [#/Vol] 389 10*3/uL Normal 150-450 [facility] Comment on above: Performed By: #### L 100.0100, L500.2500 ####[facility] [address] [place], [address] RBC (Bld) [#/Vol] 3.70 10*6/uL Low 4.2-5.4 [facility] Comment on above: Performed By: #### L 100.0100, L500.2500 ####[facility] [address] [place], [address] RDW SD 48.8 fl High 35.1-43.9 [facility] Comment on above: Performed By: #### L 100.0100, L500.2500 ####[facility] [address] [place], [address] WBC (Bld) [#/Vol] 11.5 10*3/uL High 4.4-11.0 [facility] Comment on above: Performed By: #### L 100.0100, L500.2500 ####[facility] [address] [place], [address] Culture, Blood (WB)on 2024 CUB Blood cultures x2, from two different sites No growth in 5 days. Normal [facility] Comment on above: Performed By: #### M 200.1000 ####[facility] [address] [place], [address] Basic Metabolic Profile (BMP )on 07-20-2025 BUN/CRE 47.3 RATIO High 10-20 [facility] Comment on above: Performed By: #### L 100.0100, L500.2500 ####[facility] [address] [place], [address] Calcium [Mass/Vol] 8.2 mg/dL Normal 7.6-11.0 [facility] Comment on above: Performed By: #### L 100.0100, L500.2500 ####[facility] [address] [place], [address] Chloride [Moles/Vol] 105 mmol/L Normal 98-108 [facility] Comment on above: Performed By: #### L 100.0100, L500.2500 ####[facility] [address] [place], [address] CO2 [Moles/Vol] 22.2 mmol/L Normal 21.0-32.0 [facility] Comment on above: Performed By: #### L 100.0100, L500.2500 ####[facility] [address] [place], [address] Creatinine [Mass/Vol] 0.89 mg/dL Normal 0.70-1.20 [facility] Comment on above: Performed By: #### L 100.0100, L500.2500 ####[facility] [address] [place], [address] ECRCL 46.22 ml/min Low 50-250 [facility] Comment on above: Performed By: #### L 100.0100, L500.2500 ####[facility] [address] [place], [address] GAP 12 Normal 5-15 [facility] Comment on above: Performed By: #### L 100.0100, L500.2500 ####[facility] [address] [place], [address] GFR/1.73 sq M.predicted among non-blacks MDRD (S/P/Bld) [Vol rate/Area] 69 mL/min/{1.73_m2} Normal >60 [facility] Comment on above: Result Comment: mL/m in/1.73m2 CKD-EPI Creatinine Equation (2020) Performed By: #### L 100.0100, L500.2500 ####[facility] [address] [place], [address] Glucose [Mass/Vol] 194 mg/dL High 70-99 [facility] Comment on above: Performed By: #### L 100.0100, L500.2500 ####[facility] [address] [place], [address] Potassium [Moles/Vol] 4.4 mmol/L Normal 3.3-5.1 [facility] Comment on above: Performed By: #### L 100.0100, L500.2500 ####[facility] [address] [place], [address] Sodium [Moles/Vol] 139 mmol/L Normal 133-145 [facility] Comment on above: Performed By: #### L 100.0100, L500.2500 ####[facility] [address] [place], [address] Urea nitrogen [Mass/Vol] 42 mg/dL High 4-19 [facility] Comment on above: Performed By: #### L 100.0100, L500.2500 ####[facility] [address] [place], [address] Bedside Glucoseon 07-20-2025 FINGERSTICK GLU 179 mg/dL High 74-106 [facility] Comment on above: Result Comment: CHERYL GEMENT OF PATIENT CARE PER NURSING PROTOCOL Performed By: #### L 501.080 ####[facility] [address] [place], [address] FINGERSTICK GLU 170 mg/dL High 74-106 [facility] Comment on above: Result Comment: CHERYL GEMENT OF PATIENT CARE PER NURSING PROTOCOL Performed By: #### L 501.080 ####[facility] [address] [place], [address] FINGERSTICK GLU 176 mg/dL High 74-106 [facility] Comment on above: Result Comment: CHERYL GEMENT OF PATIENT CARE PER NURSING PROTOCOL Performed By: #### L 501.080 ####[facility] [address] [place], [address] CBC W/Diff, Automatedon 09-2 Absolute Lymph 0.59 X10 3/uL Low 0.83-4.51 [facility] Comment on above: Performed By: #### L 100.0100, L500.2500 ####[facility] [address] [place], [address] Absolute Neut 10.2 X10 3/uL High 2.0-7.7 [facility] Comment on above: Performed By: #### L 100.0100, L500.2500 ####[facility] [address] [place], [address] Basophils/100 WBC (Bld) 0.1 % Normal 0-1 [facility] Comment on above: Performed By: #### L 100.0100, L500.2500 ####[facility] [address] [place], [address] Eosinophils/100 WBC (Bld) 0.0 % Normal 0-5 [facility] Comment on above: Performed By: #### L 100.0100, L500.2500 ####[facility] [address] [place], [address] Erythrocyte distribution width (RBC) [Ratio] 15.4 % High 11.6-14.6 [facility] Comment on above: Performed By: #### L 100.0100, L500.2500 ####[facility] [address] [place], [address] Hematocrit (Bld) [Volume fraction] 33.0 % Low 37-47 [facility] Comment on above: Performed By: #### L 100.0100, L500.2500 ####[facility] [address] [place], [address] Hemoglobin (Bld) [Mass/Vol] 10.5 g/dL Low 12.0-15.0 [facility] Comment on above: Performed By: #### L 100.0100, L500.2500 ####[facility] [address] [place], [address] IG% 0.900 Normal 0.0-0.9 [facility] Comment on above: Result Comment: IG% - Immature Granulocytes (promyelocytes, myelocytes andmetamyelocytes) > 1% indicates that a LEFT SHIFT is Present. Performed By: #### L 100.0100, L500.2500 ####[facility] [address] [place], [address] Lymphocytes/100 WBC (Bld) 5.2 % Low 19-41 [facility] Comment on above: Performed By: #### L 100.0100, L500.2500 ####[facility] [address] [place], [address] MCH (RBC) [Entitic mass] 28.4 pg Normal 27.0-32.0 [facility] Comment on above: Performed By: #### L 100.0100, L500.2500 ####[facility] [address] [place], [address] MCHC (RBC) [Mass/Vol] 31.8 g/dL Low 32-36 [facility] Comment on above: Performed By: #### L 100.0100, L500.2500 ####[facility] [address] [place], [address] MCV (RBC) [Entitic vol] 89.2 fL Normal 81-99 [facility] Comment on above: Performed By: #### L 100.0100, L500.2500 ####[facility] [address] [place], [address] Monocytes/100 WBC (Bld) 4.5 % Normal 0-10 [facility] Comment on above: Performed By: #### L 100.0100, L500.2500 ####[facility] [address] [place], [address] Neutrophils/100 WBC (Bld) 89.3 % High 47-70 [facility] Comment on above: Performed By: #### L 100.0100, L500.2500 ####[facility] [address] [place], [address] Nucleated RBC (Bld) [#/Vol] 0 10*3/uL Normal 0-5 [facility] Comment on above: Performed By: #### L 100.0100, L500.2500 ####[facility] [address] [place], [address] Platelet mean volume (Bld) [Entitic vol] 9.6 fL Normal 6.2-12.0 [facility] Comment on above: Performed By: #### L 100.0100, L500.2500 ####[facility] [address] [place], [address] Platelets (Bld) [#/Vol] 385 10*3/uL Normal 150-450 [facility] Comment on above: Performed By: #### L 100.0100, L500.2500 ####[facility] [address] [place], [address] RBC (Bld) [#/Vol] 3.70 10*6/uL Low 4.2-5.4 [facility] Comment on above: Performed By: #### L 100.0100, L500.2500 ####[facility] [address] [place], [address] RDW SD 49.8 fl High 35.1-43.9 [facility] Comment on above: Performed By: #### L 100.0100, L500.2500 ####[facility] [address] [place], [address] WBC (Bld) [#/Vol] 11.4 10*3/uL High 4.4-11.0 [facility] Comment on above: Performed By: #### L 100.0100, L500.2500 ####[facility] [address] [place], [place], [address] Trough vancomycin levelOrder ed By: Eleazar Valle on 07-20-2025 Vancomycin trough [Mass/Vol] 13.3 ug/mL 5.0-15.0 [facility] Vancomycin, Trough Levelon 0 07-20-2025 VANCO, TROUGH 13.3 ug/mL Normal 5.0-15.0 [facility] Comment on above: Order Comment: Comme nts: Trough to be drawn 30 mins prior to scheduled [id number] Result Comment: Hank mmended goal trough ranges are generally 10-15 mcg/mlfor less severe/complicated infections such as cellulitisor UTI and 15-20 mcg/ml for more severe/complicatedinfections such as bacteremia/sepsis, osteomyelitis,pneumonia or meningitis. Goal trough ranges should takeinto account indication, patient-specific factors andorganism ELLY.VANCOMYCIN STANDARED DRUG THERAPY TROUGH LEVEL: 5.0 - 15.0 mg/LVANCOMYCIN HIGH INTENSITY THERAPY TROUGH LEVEL: 15.0 - 20.0 mg/LHigh Intensity therapy recommended for serious lifethreatening infections include:- Ftglaokaou-Yaddlbjxpzxa-Rnqdyfyqm (Ventilator/Healtcare Associated)-SepsisPLEASE CONTACT PHARMACY SERVICES (#2182) FOR INTERPRETATIONOF RESULTS. Performed By: #### L 501.8820 ####[facility] [address] [place], [place], [id number] Basic Metabolic Profile (BMP )on 07-19-2025 BUN/CRE 41.1 RATIO High 10-20 [facility] Comment on above: Performed By: #### L 500.2500, L100.0100 ####[facility] [address] [place], [address] Calcium [Mass/Vol] 7.4 mg/dL Low 7.6-11.0 [facility] Comment on above: Performed By: #### L 500.2500, L100.0100 ####[facility] [address] [place], [address] Chloride [Moles/Vol] 106 mmol/L Normal 98-108 [facility] Comment on above: Performed By: #### L 500.2500, L100.0100 ####[facility] [address] [place], [address] CO2 [Moles/Vol] 20.7 mmol/L Low 21.0-32.0 [facility] Comment on above: Performed By: #### L 500.2500, L100.0100 ####[facility] [address] [place], [address] Creatinine [Mass/Vol] 0.89 mg/dL Normal 0.70-1.20 [facility] Comment on above: Performed By: #### L 500.2500, L100.0100 ####[facility] [address] [place], [address] ECRCL 46.22 ml/min Low 50-250 [facility] Comment on above: Performed By: #### L 500.2500, L100.0100 ####[facility] [address] [place], [address] GAP 13 Normal 5-15 [facility] Comment on above: Performed By: #### L 500.2500, L100.0100 ####[facility] [address] [place], [address] GFR/1.73 sq M.predicted among non-blacks MDRD (S/P/Bld) [Vol rate/Area] 69 mL/min/{1.73_m2} Normal >60 [facility] Comment on above: Result Comment: mL/m in/1.73m2 CKD-EPI Creatinine Equation (2020) Performed By: #### L 500.2500, L100.0100 ####[facility] [address] [place], [address] Glucose [Mass/Vol] 199 mg/dL High 70-99 [facility] Comment on above: Performed By: #### L 500.2500, L100.0100 ####[facility] [address] [place], [address] Potassium [Moles/Vol] 3.0 mmol/L Low 3.3-5.1 [facility] Comment on above: Result Comment: Hemo lysis present, Results??could be affected.?? Performed By: #### L 500.2500, L100.0100 ####[facility] [address] [place], [address] Sodium [Moles/Vol] 140 mmol/L Normal 133-145 [facility] Comment on above: Performed By: #### L 500.2500, L100.0100 ####[facility] [address] [place], [address] Urea nitrogen [Mass/Vol] 37 mg/dL High 4-19 [facility] Comment on above: Performed By: #### L 500.2500, L100.0100 ####[facility] [address] [place], [address] Bedside Glucoseon 07-19-2025 FINGERSTICK GLU 163 mg/dL High 74-106 [facility] Comment on above: Result Comment: CHERYL GEMENT OF PATIENT CARE PER NURSING PROTOCOL Performed By: #### L 501.080 ####[facility] [address] [place], [address] FINGERSTICK GLU 166 mg/dL High 74-106 [facility] Comment on above: Result Comment: CHERYL GEMENT OF PATIENT CARE PER NURSING PROTOCOL Performed By: #### L 501.080 ####[facility] [address] [place], [address] FINGERSTICK GLU 125 mg/dL High 74-106 [facility] Comment on above: Result Comment: CHERYL GEMENT OF PATIENT CARE PER NURSING PROTOCOL Performed By: #### L 501.080 ####[facility] [address] [place], [address] FINGERSTICK GLU 192 mg/dL High 74-106 [facility] Comment on above: Result Comment: CHERYL GEMENT OF PATIENT CARE PER NURSING PROTOCOL Performed By: #### L 501.080 ####[facility] [address] [place], [address] FINGERSTICK GLU 190 mg/dL High 74-106 [facility] Comment on above: Result Comment: CHERYL GEMENT OF PATIENT CARE PER NURSING PROTOCOL Performed By: #### L 501.080 ####[facility] [address] [place], [address] Blood Gases by [facility] 025 Base excess Calc (Bld) [Moles/Vol] 3 mmol/L High -2 to +2 [facility] Comment on above: Performed By: #### L 9000.0800 ####[facility] [address] [place], [address] Blood Gas Type ART Normal [facility] Comment on above: Performed By: #### L 9000.0800 ####[facility] [id number] [place], [address] CO2 [Moles/Vol] 28 mmol/L Normal [facility] Comment on above: Performed By: #### L 9000.0800 ####[facility] [id number] [place], [address] FI02 30.0 Normal [facility] Comment on above: Performed By: #### L 9000.0800 ####[facility] [id number] [place], [address] HCO3 (Bld) [Moles/Vol] 27.0 mmol/L High 22-26 [facility] Comment on above: Performed By: #### L 9000.0800 ####[facility] [id number] [place], [address] Mode AC Normal [facility] Comment on above: Performed By: #### L 9000.0800 ####[facility] [id number] [place], [address] O2 Delivery Dev Adult Vent Normal [facility] Comment on above: Performed By: #### L 9000.0800 ####[facility] [id number] [place], [address] pCO2 36.7 mmHg Normal 35-45 [facility] Comment on above: Performed By: #### L 9000.0800 ####[facility] [address] [place], [address] PEEP 5 Normal [facility] Comment on above: Performed By: #### L 9000.0800 ####[facility] [address] [place], [address] pH (Bld) 7.48 [pH] High 7.35-7.45 [facility] Comment on above: Performed By: #### L 9000.0800 ####[facility] [address] [place], [address] PO2 53 mmHG Low 75-100 [facility] Comment on above: Performed By: #### L 9000.0800 ####[facility] [address] [place], [address] RR 20 Normal [facility] Comment on above: Performed By: #### L 9000.0800 ####[facility] [address] [place], [address] SITE R Brach Normal [facility] Comment on above: Performed By: #### L 9000.0800 ####[facility] [address] [place], [address] SO2 89 Low 95-99 [facility] Comment on above: Performed By: #### L 9000.0800 ####[facility] [address] [place], [address] Vt 400.0 mL Normal [facility] Comment on above: Performed By: #### L 9000.0800 ####[facility] [address] [place], [address] Blood base excess determinat ionOrdered By: Gerard Santos on 07-19-2025 Base excess Calc (BldV) [Moles/Vol] 3 mmol/L High -2-2 [facility] Blood bicarbonate measuremen tOrdered By: Gerard Santos on 07-19-2025 HCO3 (Bld) [Moles/Vol] 27.0 mmol/L High 22-26 [facility] CBC W/Diff, Automatedon 06-24 Absolute Lymph 0.40 X10 3/uL Low 0.83-4.51 [facility] Comment on above: Performed By: #### L 500.2500, L100.0100 ####[facility] [address] [place], [address] Absolute Neut 7.7 X10 3/uL Normal 2.0-7.7 [facility] Comment on above: Performed By: #### L 500.2500, L100.0100 ####[facility] [address] [place], [address] Basophils/100 WBC (Bld) 0.1 % Normal 0-1 [facility] Comment on above: Performed By: #### L 500.2500, L100.0100 ####[facility] [address] [place], [address] Eosinophils/100 WBC (Bld) 0.1 % Normal 0-5 [facility] Comment on above: Performed By: #### L 500.2500, L100.0100 ####[facility] [address] [place], [address] Erythrocyte distribution width (RBC) [Ratio] 15.3 % High 11.6-14.6 [facility] Comment on above: Performed By: #### L 500.2500, L100.0100 ####[facility] [address] [place], [address] Hematocrit (Bld) [Volume fraction] 31.3 % Low 37-47 [facility] Comment on above: Performed By: #### L 500.2500, L100.0100 ####[facility] [address] [place], [address] Hemoglobin (Bld) [Mass/Vol] 10.2 g/dL Low 12.0-15.0 [facility] Comment on above: Performed By: #### L 500.2500, L100.0100 ####[facility] [address] [place], [address] IG% 0.700 Normal 0.0-0.9 [facility] Comment on above: Result Comment: IG% - Immature Granulocytes (promyelocytes, myelocytes andmetamyelocytes) > 1% indicates that a LEFT SHIFT is Present. Performed By: #### L 500.2500, L100.0100 ####[facility] [address] [place], [address] Lymphocytes/100 WBC (Bld) 4.7 % Low 19-41 [facility] Comment on above: Performed By: #### L 500.2500, L100.0100 ####[facility] [address] [place], [address] MCH (RBC) [Entitic mass] 28.8 pg Normal 27.0-32.0 [facility] Comment on above: Performed By: #### L 500.2500, L100.0100 ####[facility] [address] [place], [address] MCHC (RBC) [Mass/Vol] 32.6 g/dL Normal 32-36 [facility] Comment on above: Performed By: #### L 500.2500, L100.0100 ####[facility] [address] [place], [address] MCV (RBC) [Entitic vol] 88.4 fL Normal 81-99 [facility] Comment on above: Performed By: #### L 500.2500, L100.0100 ####[facility] [address] [place], [address] Monocytes/100 WBC (Bld) 4.3 % Normal 0-10 [facility] Comment on above: Performed By: #### L 500.2500, L100.0100 ####[facility] [address] [place], [address] Neutrophils/100 WBC (Bld) 90.1 % High 47-70 [facility] Comment on above: Performed By: #### L 500.2500, L100.0100 ####[facility] [address] [place], [address] Nucleated RBC (Bld) [#/Vol] 0 10*3/uL Normal 0-5 [facility] Comment on above: Performed By: #### L 500.2500, L100.0100 ####[facility] [address] [place], [address] Platelet mean volume (Bld) [Entitic vol] 9.5 fL Normal 6.2-12.0 [facility] Comment on above: Performed By: #### L 500.2500, L100.0100 ####[facility] [address] [place], [address] Platelets (Bld) [#/Vol] 348 10*3/uL Normal 150-450 [facility] Comment on above: Performed By: #### L 500.2500, L100.0100 ####[facility] [address] [place], [address] RBC (Bld) [#/Vol] 3.54 10*6/uL Low 4.2-5.4 [facility] Comment on above: Performed By: #### L 500.2500, L100.0100 ####[facility] [address] [place], [address] RDW SD 49.1 fl High 35.1-43.9 [facility] Comment on above: Performed By: #### L 500.2500, L100.0100 ####[facility] [address] [place], [address] WBC (Bld) [#/Vol] 8.5 10*3/uL Normal 4.4-11.0 [facility] Comment on above: Performed By: #### L 500.2500, L100.0100 ####[facility] [address] [place], [address] Chest 1 View (Portable)on Chest 1 View (Portable) Normal [facility] Hepatitis Panel Acuteon 06-24 COMMENT Comment Normal . [facility] Comment on above: Result Comment: Not infected with HCV unless early or acute infection issuspected (which may be delayed in an immunocompromisedindividual), or other evidence exists to indicate HCVinfection.Performed at: - [facility] [id number] Director: Jonathan Lopez PhD, Phone: [phone] Performed By: #### L 3000.0375 ####[facility] [address] [place], [address] HEP B CORE,IgM Negative Normal Negative [facility] Comment on above: Performed By: #### L 3000.0375 ####[facility] [address] [place], [address] HEP B SURF AG Negative Normal Negative [facility] Comment on above: Performed By: #### L 3000.0375 ####[facility] [address] [place], [address] HEP C VIRUS AB Non-Reactive Normal Non Reactive [facility] Comment on above: Performed By: #### L 3000.0375 ####[facility] [address] [place], [place], [id number] HEPATITIS A-IgM Negative Normal Negative [facility] Comment on above: Result Comment: A ne gative anti-HAV IgM result suggests no recent orcurrent HAV infection. Performed By: #### L 3000.0375 ####[facility] [address] [place], [place], [address] Measurement, pHOrdered By: Alphonso Santos on 07-19-2025 pH (Unsp spec) 7.48 [pH] High 7.35-7.45 [facility] No Panel InformationOrdered By: Gerard Santos on 07-19-2025 ART [facility] R Brach [facility] AC [facility] Adult Vent [facility] 400.0 mL [facility] 20 [facility] 5 [facility] Total carbon dioxide measure mentOrdered By: Gerard Santos on 07-19-2025 CO2 [Moles/Vol] 28 mmol/L [facility] Basic Metabolic Profile (BMP )on 07-18-2025 BUN/CRE 32.4 RATIO High 10-20 [facility] Comment on above: Performed By: #### L 500.2500, L501.2300, L100.0100, L501.5200 ####[facility] [address] [place], [place], [address] Calcium [Mass/Vol] 8.4 mg/dL Normal 7.6-11.0 [facility] Comment on above: Performed By: #### L 500.2500, L501.2300, L100.0100, L501.5200 ####[facility] [address] [place], [address] Chloride [Moles/Vol] 103 mmol/L Normal 98-108 [facility] Comment on above: Performed By: #### L 500.2500, L501.2300, L100.0100, L501.5200 ####[facility] [address] [place], [address] CO2 [Moles/Vol] 23.0 mmol/L Normal 21.0-32.0 [facility] Comment on above: Performed By: #### L 500.2500, L501.2300, L100.0100, L501.5200 ####[facility] [address] [place], [address] Creatinine [Mass/Vol] 1.04 mg/dL Normal 0.70-1.20 [facility] Comment on above: Performed By: #### L 500.2500, L501.2300, L100.0100, L501.5200 ####[facility] [address] [place], [address] ECRCL 39.32 ml/min Low 50-250 [facility] Comment on above: Performed By: #### L 500.2500, L501.2300, L100.0100, L501.5200 ####[facility] [address] [place], [address] GAP 13 Normal 5-15 [facility] Comment on above: Performed By: #### L 500.2500, L501.2300, L100.0100, L501.5200 ####[facility] [address] [place], [address] GFR/1.73 sq M.predicted among non-blacks MDRD (S/P/Bld) [Vol rate/Area] 57 mL/min/{1.73_m2} Low >60 [facility] Comment on above: Result Comment: mL/m in/1.73m2 CKD-EPI Creatinine Equation (2020) Performed By: #### L 500.2500, L501.2300, L100.0100, L501.5200 ####[facility] [address] [place], [address] Glucose [Mass/Vol] 181 mg/dL High 70-99 [facility] Comment on above: Performed By: #### L 500.2500, L501.2300, L100.0100, L501.5200 ####[facility] [address] [place], [address] Potassium [Moles/Vol] 3.6 mmol/L Normal 3.3-5.1 [facility] Comment on above: Performed By: #### L 500.2500, L501.2300, L100.0100, L501.5200 ####[facility] [address] [place], [address] Sodium [Moles/Vol] 139 mmol/L Normal 133-145 [facility] Comment on above: Performed By: #### L 500.2500, L501.2300, L100.0100, L501.5200 ####[facility] [address] [place], [address] Urea nitrogen [Mass/Vol] 34 mg/dL High 4-19 [facility] Comment on above: Performed By: #### L 500.2500, L501.2300, L100.0100, L501.5200 ####[facility] [address] [place], [address] Bedside Glucoseon 07-18-2025 FINGERSTICK GLU 187 mg/dL High 74-106 [facility] Comment on above: Result Comment: CHERYL GEMENT OF PATIENT CARE PER NURSING PROTOCOL Performed By: #### L 501.080 ####[facility] [address] [place], [address] FINGERSTICK GLU 192 mg/dL High 74-106 [facility] Comment on above: Result Comment: CHERYL GEMENT OF PATIENT CARE PER NURSING PROTOCOL Performed By: #### L 501.080 ####[facility] [address] [place], [address] FINGERSTICK GLU 174 mg/dL High 74-106 [facility] Comment on above: Result Comment: CHERYL WILLS OF PATIENT CARE PER NURSING PROTOCOL Performed By: #### L 501.080 ####[facility] [address] [place], [address] CBC W/Diff, Automatedon 2 Absolute Lymph 0.59 X10 3/uL Low 0.83-4.51 [facility] Comment on above: Performed By: #### L 500.2500, L501.2300, L100.0100, L501.5200 ####[facility] [address] [place], [address] Absolute Neut 8.8 X10 3/uL High 2.0-7.7 [facility] Comment on above: Performed By: #### L 500.2500, L501.2300, L100.0100, L501.5200 ####[facility] [address] [place], [address] Basophils/100 WBC (Bld) 0.1 % Normal 0-1 [facility] Comment on above: Performed By: #### L 500.2500, L501.2300, L100.0100, L501.5200 ####[facility] [address] [place], [address] Eosinophils/100 WBC (Bld) 0.0 % Normal 0-5 [facility] Comment on above: Performed By: #### L 500.2500, L501.2300, L100.0100, L501.5200 ####[facility] [address] [place], [address] Erythrocyte distribution width (RBC) [Ratio] 15.3 % High 11.6-14.6 [facility] Comment on above: Performed By: #### L 500.2500, L501.2300, L100.0100, L501.5200 ####[facility] [address] [place], [address] Hematocrit (Bld) [Volume fraction] 32.7 % Low 37-47 [facility] Comment on above: Performed By: #### L 500.2500, L501.2300, L100.0100, L501.5200 ####[facility] [address] [place], [address] Hemoglobin (Bld) [Mass/Vol] 11.2 g/dL Low 12.0-15.0 [facility] Comment on above: Performed By: #### L 500.2500, L501.2300, L100.0100, L501.5200 ####[facility] [address] [place], [address] IG% 0.800 Normal 0.0-0.9 [facility] Comment on above: Result Comment: IG% - Immature Granulocytes (promyelocytes, myelocytes andmetamyelocytes) > 1% indicates that a LEFT SHIFT is Present. Performed By: #### L 500.2500, L501.2300, L100.0100, L501.5200 ####[facility] [address] [place], [address] Lymphocytes/100 WBC (Bld) 5.9 % Low 19-41 [facility] Comment on above: Performed By: #### L 500.2500, L501.2300, L100.0100, L501.5200 ####[facility] [address] [place], [address] MCH (RBC) [Entitic mass] 29.8 pg Normal 27.0-32.0 [facility] Comment on above: Performed By: #### L 500.2500, L501.2300, L100.0100, L501.5200 ####[facility] [address] [place], [address] MCHC (RBC) [Mass/Vol] 34.3 g/dL Normal 32-36 [facility] Comment on above: Performed By: #### L 500.2500, L501.2300, L100.0100, L501.5200 ####[facility] [address] [place], [address] MCV (RBC) [Entitic vol] 87.0 fL Normal 81-99 [facility] Comment on above: Performed By: #### L 500.2500, L501.2300, L100.0100, L501.5200 ####[facility] [address] [place], [address] Monocytes/100 WBC (Bld) 4.7 % Normal 0-10 [facility] Comment on above: Performed By: #### L 500.2500, L501.2300, L100.0100, L501.5200 ####[facility] [address] [place], [address] Neutrophils/100 WBC (Bld) 88.5 % High 47-70 [facility] Comment on above: Performed By: #### L 500.2500, L501.2300, L100.0100, L501.5200 ####[facility] [address] [place], [address] Nucleated RBC (Bld) [#/Vol] 0 10*3/uL Normal 0-5 [facility] Comment on above: Performed By: #### L 500.2500, L501.2300, L100.0100, L501.5200 ####[facility] [address] [place], [address] Platelet mean volume (Bld) [Entitic vol] 9.4 fL Normal 6.2-12.0 [facility] Comment on above: Performed By: #### L 500.2500, L501.2300, L100.0100, L501.5200 ####[facility] [address] [place], [address] Platelets (Bld) [#/Vol] 365 10*3/uL Normal 150-450 [facility] Comment on above: Performed By: #### L 500.2500, L501.2300, L100.0100, L501.5200 ####[facility] [address] [place], [address] RBC (Bld) [#/Vol] 3.76 10*6/uL Low 4.2-5.4 [facility] Comment on above: Performed By: #### L 500.2500, L501.2300, L100.0100, L501.5200 ####[facility] [address] [place], [address] RDW SD 48.1 fl High 35.1-43.9 [facility] Comment on above: Performed By: #### L 500.2500, L501.2300, L100.0100, L501.5200 ####[facility] [address] [place], [address] WBC (Bld) [#/Vol] 9.9 10*3/uL Normal 4.4-11.0 [facility] Comment on above: Performed By: #### L 500.2500, L501.2300, L100.0100, L501.5200 ####[facility] [address] [place], [address] Magnesiumon 07-18-2025 Magnesium [Mass/Vol] 2.4 mg/dL High 1.5-2.2 [facility] Comment on above: Performed By: #### L 500.2500, L501.2300, L100.0100, L501.5200 ####[facility] [address] [place], [address] Magnesium measurement (mass/ volume)Ordered By: Eleazar Valle on 07-18-2025 Magnesium (Unsp spec) [Mass/Vol] 2.4 mg/dL High 1.5-2.2 [facility] No Panel InformationOrdered By: Jack Haile on 07-18-2025 Comment . [facility] Phosphoruson 07-18-2025 Phosphate [Mass/Vol] 3.6 mg/dL Normal 2.7-4.5 [facility] Comment on above: Performed By: #### L 500.2500, L501.2300, L100.0100, L501.5200 ####[facility] [address] [place], [address] Respiratory Cultureon 2024 RESPC Mixed normal respiratory renu. No Streptococcus pneumoniae, beta-hemolytic Streptococcus or Staphylococcus aureus isolated. Normal [facility] Comment on above: Performed By: #### M 100.2400, M100.2000, M100.678, M100.2200 ####[facility] [address] [place], [address] Serum or plasma hepatitis B virus surface antigen detection by immunoassayOrdered By: Jack Haile on 07-18-2025 HBV surface Ag IA Ql Negative Negative [facility] Vancomycin, Trough Levelon 0 07-18-2025 VANCO, TROUGH 7.7 ug/mL Normal 5.0-15.0 [facility] Comment on above: Order Comment: Comme nts: Trough to be drawn 30 mins prior to scheduled [id number] Result Comment: Hank mmended goal trough ranges are generally 10-15 mcg/mlfor less severe/complicated infections such as cellulitisor UTI and 15-20 mcg/ml for more severe/complicatedinfections such as bacteremia/sepsis, osteomyelitis,pneumonia or meningitis. Goal trough ranges should takeinto account indication, patient-specific factors andorganism ELLY.VANCOMYCIN STANDARED DRUG THERAPY TROUGH LEVEL: 5.0 - 15.0 mg/LVANCOMYCIN HIGH INTENSITY THERAPY TROUGH LEVEL: 15.0 - 20.0 mg/LHigh Intensity therapy recommended for serious lifethreatening infections include:- Aljpypitvt-Plixhbwroulf-Eiwwspxwz (Ventilator/Healtcare Associated)-SepsisPLEASE CONTACT PHARMACY SERVICES (#3738) FOR INTERPRETATIONOF RESULTS. Performed By: #### L 501.8820 ####[facility] [address] [place], [address] Basic Metabolic Profile (BMP )on 07-17-2025 BUN/CRE 22.6 RATIO High 10-20 [facility] Comment on above: Performed By: #### L 500.2500, L100.0100 ####[facility] [address] [place], [address] Calcium [Mass/Vol] 8.1 mg/dL Normal 7.6-11.0 [facility] Comment on above: Performed By: #### L 500.2500, L100.0100 ####[facility] [address] [place], [address] Chloride [Moles/Vol] 102 mmol/L Normal 98-108 [facility] Comment on above: Performed By: #### L 500.2500, L100.0100 ####[facility] [address] [place], [address] CO2 [Moles/Vol] 22.9 mmol/L Normal 21.0-32.0 [facility] Comment on above: Performed By: #### L 500.2500, L100.0100 ####[facility] [address] [place], [address] Creatinine [Mass/Vol] 1.30 mg/dL High 0.70-1.20 [facility] Comment on above: Performed By: #### L 500.2500, L100.0100 ####[facility] [address] [place], [address] ECRCL 29.63 ml/min Low 50-250 [facility] Comment on above: Performed By: #### L 500.2500, L100.0100 ####[facility] [address] [place], [address] GAP 15 Normal 5-15 [facility] Comment on above: Performed By: #### L 500.2500, L100.0100 ####[facility] [address] [place], [address] GFR/1.73 sq M.predicted among non-blacks MDRD (S/P/Bld) [Vol rate/Area] 44 mL/min/{1.73_m2} Low >60 [facility] Comment on above: Result Comment: mL/m in/1.73m2 CKD-EPI Creatinine Equation (2020) Performed By: #### L 500.2500, L100.0100 ####[facility] [address] [place], [address] Glucose [Mass/Vol] 149 mg/dL High 70-99 [facility] Comment on above: Performed By: #### L 500.2500, L100.0100 ####[facility] [address] [place], [address] Potassium [Moles/Vol] 3.0 mmol/L Low 3.3-5.1 [facility] Comment on above: Performed By: #### L 500.2500, L100.0100 ####[facility] [address] [place], [address] Sodium [Moles/Vol] 140 mmol/L Normal 133-145 [facility] Comment on above: Performed By: #### L 500.2500, L100.0100 ####[facility] [address] [place], [address] Urea nitrogen [Mass/Vol] 29 mg/dL High 4-19 [facility] Comment on above: Performed By: #### L 500.2500, L100.0100 ####[facility] [address] [place], [address] BUN Normal 4-19 [facility] Comment on above: Result Comment: DUPL ICATE Performed By: #### L 100.0100, L500.2500 ####[facility] [address] [place], [address] BUN/CRE Normal 10-20 [facility] Comment on above: Result Comment: DUPL ICATE Performed By: #### L 100.0100, L500.2500 ####[facility] [address] [place], [address] Calcium Normal 7.6-11.0 [facility] Comment on above: Result Comment: DUPL ICATE Performed By: #### L 100.0100, L500.2500 ####[facility] [address] [place], [address] CL Normal 98-108 [facility] Comment on above: Result Comment: DUPL ICATE Performed By: #### L 100.0100, L500.2500 ####[facility] [address] [place], [address] CO2 Normal 21.0-32.0 [facility] Comment on above: Result Comment: DUPL ICATE Performed By: #### L 100.0100, L500.2500 ####[facility] [address] [place], [address] CREAT,SERUM Normal 0.70-1.20 [facility] Comment on above: Result Comment: DUPL ICATE Performed By: #### L 100.0100, L500.2500 ####[facility] [address] [place], [address] eGFR Normal >60 [facility] Comment on above: Result Comment: DUPL ICATE Performed By: #### L 100.0100, L500.2500 ####[facility] [address] [place], [address] GAP Normal 5-15 [facility] Comment on above: Result Comment: DUPL ICATE Performed By: #### L 100.0100, L500.2500 ####[facility] [address] [place], [address] GLU Normal 70-99 [facility] Comment on above: Result Comment: DUPL ICATE Performed By: #### L 100.0100, L500.2500 ####[facility] [address] [place], [address] Potassium Normal 3.3-5.1 [facility] Comment on above: Result Comment: DUPL ICATE Performed By: #### L 100.0100, L500.2500 ####[facility] [address] [place], [address] Basic Metabolic Profile (BMP) Normal 133-145 [facility] Comment on above: Result Comment: DUPL ICATE Performed By: #### L 100.0100, L500.2500 ####[facility] [address] [place], [address] Bedside Glucoseon 07-17-2025 FINGERSTICK GLU 185 mg/dL High 74-106 [facility] Comment on above: Result Comment: CHERYL GEMENT OF PATIENT CARE PER NURSING PROTOCOL Performed By: #### L 501.080 ####[facility] [address] [place], [address] FINGERSTICK GLU 157 mg/dL High 74-106 [facility] Comment on above: Result Comment: CHERYL GEMENT OF PATIENT CARE PER NURSING PROTOCOL Performed By: #### L 501.080 ####[facility] [address] [place], [address] FINGERSTICK GLU 165 mg/dL High 74-106 [facility] Comment on above: Result Comment: Dr Geovanny pastrana FollowedInsulin GivenMANAGEMENT OF PATIENT CARE PER NURSING PROTOCOL Performed By: #### L 501.080 ####[facility] [address] [place], [address] FINGERSTICK GLU 156 mg/dL High 74-106 [facility] Comment on above: Result Comment: CHERYL GEMENT OF PATIENT CARE PER NURSING PROTOCOL Performed By: #### L 501.080 ####[facility] [address] [place], [address] FINGERSTICK GLU 153 mg/dL High 74-106 [facility] Comment on above: Result Comment: CHERYL GEMENT OF PATIENT CARE PER NURSING PROTOCOL Performed By: #### L 501.080 ####[facility] [address] [place], [address] CBC W/Diff, Automatedon 06-24-2024 Absolute Lymph 0.76 X10 3/uL Low 0.83-4.51 [facility] Comment on above: Performed By: #### L 500.2500, L100.0100 ####[facility] [address] [place], [address] Absolute Neut 7.0 X10 3/uL Normal 2.0-7.7 [facility] Comment on above: Performed By: #### L 500.2500, L100.0100 ####[facility] [address] [place], [address] Basophils/100 WBC (Bld) 0.1 % Normal 0-1 [facility] Comment on above: Performed By: #### L 500.2500, L100.0100 ####[facility] [address] [place], [address] Eosinophils/100 WBC (Bld) 0.0 % Normal 0-5 [facility] Comment on above: Performed By: #### L 500.2500, L100.0100 ####[facility] [address] [place], [address] Erythrocyte distribution width (RBC) [Ratio] 15.1 % High 11.6-14.6 [facility] Comment on above: Performed By: #### L 500.2500, L100.0100 ####[facility] [address] [place], [address] Hematocrit (Bld) [Volume fraction] 29.1 % Low 37-47 [facility] Comment on above: Performed By: #### L 500.2500, L100.0100 ####[facility] [address] [place], [address] Hemoglobin (Bld) [Mass/Vol] 9.8 g/dL Low 12.0-15.0 [facility] Comment on above: Performed By: #### L 500.2500, L100.0100 ####[facility] [address] [place], [address] IG% 0.400 Normal 0.0-0.9 [facility] Comment on above: Result Comment: IG% - Immature Granulocytes (promyelocytes, myelocytes andmetamyelocytes) > 1% indicates that a LEFT SHIFT is Present. Performed By: #### L 500.2500, L100.0100 ####[facility] [address] [place], [address] Lymphocytes/100 WBC (Bld) 9.1 % Low 19-41 [facility] Comment on above: Performed By: #### L 500.2500, L100.0100 ####[facility] [address] [place], [address] MCH (RBC) [Entitic mass] 29.3 pg Normal 27.0-32.0 [facility] Comment on above: Performed By: #### L 500.2500, L100.0100 ####[facility] [address] [place], [address] MCHC (RBC) [Mass/Vol] 33.7 g/dL Normal 32-36 [facility] Comment on above: Performed By: #### L 500.2500, L100.0100 ####[facility] [address] [place], [address] MCV (RBC) [Entitic vol] 87.1 fL Normal 81-99 [facility] Comment on above: Performed By: #### L 500.2500, L100.0100 ####[facility] [address] [place], [address] Monocytes/100 WBC (Bld) 6.3 % Normal 0-10 [facility] Comment on above: Performed By: #### L 500.2500, L100.0100 ####[facility] [address] [place], [address] Neutrophils/100 WBC (Bld) 84.1 % High 47-70 [facility] Comment on above: Performed By: #### L 500.2500, L100.0100 ####[facility] [address] [place], [address] Nucleated RBC (Bld) [#/Vol] 0 10*3/uL Normal 0-5 [facility] Comment on above: Performed By: #### L 500.2500, L100.0100 ####[facility] [address] [place], [address] Platelet mean volume (Bld) [Entitic vol] 9.7 fL Normal 6.2-12.0 [facility] Comment on above: Performed By: #### L 500.2500, L100.0100 ####[facility] [address] [place], [address] Platelets (Bld) [#/Vol] 352 10*3/uL Normal 150-450 [facility] Comment on above: Performed By: #### L 500.2500, L100.0100 ####[facility] [address] [place], [address] RBC (Bld) [#/Vol] 3.34 10*6/uL Low 4.2-5.4 [facility] Comment on above: Performed By: #### L 500.2500, L100.0100 ####[facility] [address] [place], [address] RDW SD 47.9 fl High 35.1-43.9 [facility] Comment on above: Performed By: #### L 500.2500, L100.0100 ####[facility] [address] [place], [address] WBC (Bld) [#/Vol] 8.4 10*3/uL Normal 4.4-11.0 [facility] Comment on above: Performed By: #### L 500.2500, L100.0100 ####[facility] [address] [place], [address] Absolute Neut Normal 2.0-7.7 [facility] Comment on above: Result Comment: DUPL ICATE Performed By: #### L 100.0100, L500.2500 ####[facility] [address] [place], [address] HCT Normal 37-47 [facility] Comment on above: Result Comment: DUPL ICATE Performed By: #### L 100.0100, L500.2500 ####[facility] [address] [place], [address] HGB Normal 12.0-15.0 [facility] Comment on above: Result Comment: DUPL ICATE Performed By: #### L 100.0100, L500.2500 ####[facility] [address] [place], [address] MCH Normal 27.0-32.0 [facility] Comment on above: Result Comment: DUPL ICATE Performed By: #### L 100.0100, L500.2500 ####[facility] [address] [place], [address] MCHC Normal 32-36 [facility] Comment on above: Result Comment: DUPL ICATE Performed By: #### L 100.0100, L500.2500 ####[facility] [address] [place], [address] MCV Normal 81-99 [facility] Comment on above: Result Comment: DUPL ICATE Performed By: #### L 100.0100, L500.2500 ####[facility] [address] [place], [address] NEUT% Normal 47-70 [facility] Comment on above: Result Comment: DUPL ICATE Performed By: #### L 100.0100, L500.2500 ####[facility] [address] [place], [address] PLT Normal 150-450 [facility] Comment on above: Result Comment: DUPL ICATE Performed By: #### L 100.0100, L500.2500 ####[facility] [address] [place], [address] RBC Normal 4.2-5.4 [facility] Comment on above: Result Comment: DUPL ICATE Performed By: #### L 100.0100, L500.2500 ####[facility] [address] [place], [address] RDW CV Normal 11.6-14.6 [facility] Comment on above: Result Comment: DUPL ICATE Performed By: #### L 100.0100, L500.2500 ####[facility] [address] [place], [address] RDW SD Normal 35.1-43.9 [facility] Comment on above: Result Comment: DUPL ICATE Performed By: #### L 100.0100, L500.2500 ####[facility] [address] [place], [address] WBC Normal 4.4-11.0 [facility] Comment on above: Result Comment: DUPL ICATE Performed By: #### L 100.0100, L500.2500 ####[facility] [address] [place], [place], [address] Chest 1 View (Portable)on Chest 1 View (Portable) Normal [facility] Electrocardiogram reportOrde red By: Rosy Colindres on 07-17-2025 EKG study [facility] Other Natriuretic peptide.B prohor clover N-Terminal [Mass/volume] in Serum or PlasmaOrdered By: Jack Haile on 07-17-2025 Natriuretic peptide.B prohormone N-Terminal [Mass/Vol] 6511 pg/mL High <900 [facility] Pro- Brain NATRIURETIC PEPTI Donna 07-17-2025 Natriuretic peptide B (Bld) [Mass/Vol] 6511 pg/mL High <=900 [facility] Comment on above: Result Comment: Hear t Failure Unlikely: < 300 pg/mLHeart Failure Likely< 50 Years: > 450 pg/mL50-75 Years: > 900 pg/mL>75 Years: > 1800 pg/mL Performed By: #### L 503.7505 ####[facility] [address] [place], [place], [address] Urine Cultureon 07-17-2025 URC Culture exhibits no growth. Normal [facility] Comment on above: Performed By: #### M 100.2400, M100.2000, M100.678, M100.2200 ####[facility] [address] [place], [address] 12 Lead EKGon 07-16-2025 12 Lead EKG Normal [facility] 12 Lead EKG Normal [facility] Abdomen/Pelvis without Conto n 07-16-2025 Abdomen/Pelvis without Cont Normal [facility] Assessment of wrist artery p atency prior to arterial punctureOrdered By: Gerard Santos on 07-16-2025 Arterial patency Wrist artery --pre arterial puncture N/A [facility] Bedside Glucoseon 07-16-2025 FINGERSTICK GLU 135 mg/dL High 74-106 [facility] Comment on above: Result Comment: CHERYL GEMENT OF PATIENT CARE PER NURSING PROTOCOL Performed By: #### L 501.080 ####[facility] [address] [place], [address] FINGERSTICK GLU 124 mg/dL High 74-106 [facility] Comment on above: Result Comment: CHERYL GEMENT OF PATIENT CARE PER NURSING PROTOCOL Performed By: #### L 501.080 ####[facility] [address] [place], [address] FINGERSTICK GLU 145 mg/dL High 74-106 [facility] Comment on above: Result Comment: CHERYL GEMENT OF PATIENT CARE PER NURSING PROTOCOL Performed By: #### L 501.080 ####[facility] [address] [place], [address] FINGERSTICK GLU 152 mg/dL High 74-106 [facility] Comment on above: Result Comment: CHERYL GEMENT OF PATIENT CARE PER NURSING PROTOCOL Performed By: #### L 501.080 ####[facility] [address] [place], [address] Bilirubin Test strip Ql (U)O rdered By: Jack Haile on 07-16-2025 Bilirubin Ql (U) Negative Negative [facility] Bilirubin, totalOrdered By: Bernardo Sharif on 07-16-2025 Bilirubin [Mass/Vol] 0.34 mg/dL 0.00-1.30 [facility] Blood Gases by CPSon 025 JUDITH TEST N/A Normal [facility] Comment on above: Performed By: #### L 9000.0800 ####[facility] [address] [place], [address] Base excess Calc (Bld) [Moles/Vol] 6 mmol/L High -2 to +2 [facility] Comment on above: Performed By: #### L 9000.0800 ####[facility] [address] [place], [address] Blood Gas Type ART Normal [facility] Comment on above: Performed By: #### L 9000.0800 ####[facility] [address] [place], [address] CO2 [Moles/Vol] 30 mmol/L Normal [facility] Comment on above: Performed By: #### L 9000.0800 ####[facility] [address] [place], [address] FI02 50.0 Normal [facility] Comment on above: Performed By: #### L 9000.0800 ####[facility] [address] [place], [address] HCO3 (Bld) [Moles/Vol] 29.1 mmol/L High 22-26 [facility] Comment on above: Performed By: #### L 9000.0800 ####[facility] [address] [place], [address] Mode AC Normal [facility] Comment on above: Performed By: #### L 9000.0800 ####[facility] [address] [place], [address] O2 Delivery Dev Adult Vent Normal [facility] Comment on above: Performed By: #### L 9000.0800 ####[facility] [address] [place], [address] pCO2 38.6 mmHg Normal 35-45 [facility] Comment on above: Performed By: #### L 9000.0800 ####[facility] [address] [place], [address] PEEP 5 Normal [facility] Comment on above: Performed By: #### L 9000.0800 ####[facility] [address] [place], [address] pH (Bld) 7.49 [pH] High 7.35-7.45 [facility] Comment on above: Performed By: #### L 9000.0800 ####[facility] [address] [place], [address] PO2 96 mmHG Normal 75-100 [facility] Comment on above: Performed By: #### L 9000.0800 ####[facility] [address] [place], [address] RR 20 Normal [facility] Comment on above: Performed By: #### L 9000.0800 ####[facility] [address] [place], [address] SITE L Radial Normal [facility] Comment on above: Performed By: #### L 9000.0800 ####[facility] [address] [place], [address] SO2 98 Normal 95-99 [facility] Comment on above: Performed By: #### L 9000.0800 ####[facility] [address] [place], [address] Vt 400.0 mL Normal [facility] Comment on above: Performed By: #### L 9000.0800 ####[facility] [address] [place], [address] JUDITH TEST N/A Normal [facility] Comment on above: Performed By: #### L 9000.0800 ####[facility] [address] [place], [address] Base excess Calc (Bld) [Moles/Vol] -9 mmol/L Low -2 to +2 [facility] Comment on above: Performed By: #### L 9000.0800 ####[facility] [address] [place], [address] Blood Gas Type ART Normal [facility] Comment on above: Performed By: #### L 0.0800 ####[facility] [address] [place], [address] CO2 [Moles/Vol] 24 mmol/L Normal [facility] Comment on above: Performed By: #### L 0.0800 ####[facility] [address] [place], [address] FI02 50.0 Normal [facility] Comment on above: Performed By: #### L 0.0800 ####[facility] [address] [place], [address] HCO3 (Bld) [Moles/Vol] 21.2 mmol/L Low 22-26 [facility] Comment on above: Performed By: #### L 0.0800 ####[facility] [address] [place], [address] Mode AC Normal [facility] Comment on above: Performed By: #### L 0.0800 ####[facility] [address] [place], [address] O2 Delivery Dev Adult Vent Normal [facility] Comment on above: Performed By: #### L 0.0800 ####[facility] [address] [place], [address] pCO2 75.1 mmHg Invalid Interpretation Code 35-45 [facility] Comment on above: Performed By: #### L 0.0800 ####[facility] [address] [place], [address] PEEP 5 Normal [facility] Comment on above: Performed By: #### L 0.0800 ####[facility] [address] [place], [address] pH (Bld) 7.06 [pH] Invalid Interpretation Code 7.35-7.45 [facility] Comment on above: Performed By: #### L 8999.0800 ####[facility] [address] [place], [address] PO2 73 mmHG Low 75-100 [facility] Comment on above: Performed By: #### L 8999.0800 ####[facility] [address] [place], [address] Read Back By Yes [facility] Comment on above: Performed By: #### L 8999.0800 ####[facility] [address] [place], [address] Sharif [facility] Comment on above: Performed By: #### L 8999.0800 ####[facility] [address] [place], [address] RR 20 [facility] Comment on above: Performed By: #### L 8999.0800 ####[facility] [address] [place], [address] SITE L Radial [facility] Comment on above: Performed By: #### L 8999.0800 ####[facility] [address] [place], [address] SO2 86 Low 95-99 [facility] Comment on above: Performed By: #### L 8999.0800 ####[facility] [address] [place], [address] Time Given 04:00:19 [facility] Comment on above: Performed By: #### L 0.0800 ####[facility] [address] [place], [address] Vt 400.0 mL [facility] Comment on above: Performed By: #### L 8999.0800 ####[facility] [address] [place], [address] Blood cultureOrdered By: Gissel romano Chante on 07-16-2025 Bacteria identified Cx Nom (Bld) No growth in 5 days. [facility] Bacteria identified Cx Nom (Bld) No growth in 5 days. [facility] Blood manual differential co mment interpretation (narrative result)Ordered By: Bernardo Chante on 07-16-2025 Manual differential comment Dandy (Bld) [Interp] SCANNED [facility] Brain/Head without Contrasto n 07-16-2025 Brain/Head without Contrast Normal [facility] CBC W/Diff, Automatedon 06-24 SMEAR COMMENT SCANNED Normal [facility] Comment on above: Result Comment: LYMP HOCYTOSIS PRESENT Performed By: #### L 503.6005, L501.4021, L100.0100 ####[facility] [address] [place], [place], [address] CPK Total, Creatine Kinaseon 07-16-2025 CPK TOTAL 126 U/L Normal 24- [facility] Comment on above: Order Comment: Comme nts: DC when propofol is d/c'd Performed By: #### L 501.5000, L501.3620 ####[facility] [address] [place], [place], [address] CTA Chest W/WO Contraston CTA Chest W/WO Contrast Normal [facility] Calculated very low density lipoprotein (VLDL) cholesterol measurementOrdered By: Jack Haile on 07-16-2025 Calculated very low density lipoprotein (VLDL) cholesterol measurement 20 mg/dL 5-40 [facility] Chest 1 View (Portable)on Chest 1 View (Portable) Normal [facility] Comprehensive Metabolic Prof ilon 07-16-2025 Albumin [Mass/Vol] 3.8 g/dL Normal 3.4-4.8 [facility] Comment on above: Performed By: #### L 500.4050, L503.7505 ####[facility] [address] [place], [place], [address] Albumin/Globulin [Mass ratio] 1.2 {ratio} Normal 0.9-2.4 [facility] Comment on above: Performed By: #### L 500.4050, L503.7505 ####[facility] [address] [place], [address] ALK PHOS 163 U/L High 35-104 [facility] Comment on above: Performed By: #### L 500.4050, L503.7505 ####[facility] [address] [place], [address] ALT [Catalytic activity/Vol] 118 U/L High <=34 [facility] Comment on above: Performed By: #### L 500.4050, L503.7505 ####[facility] [address] [place], [address] AST [Catalytic activity/Vol] 158 U/L High <=31 [facility] Comment on above: Result Comment: Hemo lysis present, Results??could be affected.?? Performed By: #### L 500.4050, L503.7505 ####[facility] [address] [place], [address] Bilirubin [Mass/Vol] 0.34 mg/dL Normal 0.00-1.30 [facility] Comment on above: Performed By: #### L 500.4050, L503.7505 ####[facility] [address] [place], [address] BUN/CRE 13.1 RATIO Normal 10-20 [facility] Comment on above: Performed By: #### L 500.4050, L503.7505 ####[facility] [address] [place], [address] Calcium [Mass/Vol] 8.5 mg/dL Normal 7.6-11.0 [facility] Comment on above: Performed By: #### L 500.4050, L503.7505 ####[facility] [address] [place], [address] Chloride [Moles/Vol] 100 mmol/L Normal 98-108 [facility] Comment on above: Performed By: #### L 500.4050, L503.7505 ####[facility] [address] [place], [address] CO2 [Moles/Vol] 21.7 mmol/L Normal 21.0-32.0 [facility] Comment on above: Performed By: #### L 500.4050, L503.7505 ####[facility] [address] [place], [address] Creatinine [Mass/Vol] 1.27 mg/dL High 0.70-1.20 [facility] Comment on above: Performed By: #### L 500.4050, L503.7505 ####[facility] [address] [place], [address] ECRCL 34.32 ml/min Low 50-250 [facility] Comment on above: Performed By: #### L 500.4050, L503.7505 ####[facility] [address] [place], [address] GAP 15 Normal 5-15 [facility] Comment on above: Performed By: #### L 500.4050, L503.7505 ####[facility] [address] [place], [address] GFR/1.73 sq M.predicted among non-blacks MDRD (S/P/Bld) [Vol rate/Area] 45 mL/min/{1.73_m2} Low >60 [facility] Comment on above: Result Comment: mL/m in/1.73m2 CKD-EPI Creatinine Equation (2020) Performed By: #### L 500.4050, L503.7505 ####[facility] [address] [place], [address] Globulin (S) [Mass/Vol] 3.1 g/dL Normal 2.2-4.2 [facility] Comment on above: Performed By: #### L 500.4050, L503.7505 ####[facility] [address] [place], [address] Glucose [Mass/Vol] 368 mg/dL High 70-99 [facility] Comment on above: Performed By: #### L 500.4050, L503.7505 ####[facility] [address] [place], [address] Potassium [Moles/Vol] 3.7 mmol/L Normal 3.3-5.1 [facility] Comment on above: Result Comment: Hemo lysis present, Results??could be affected.?? Performed By: #### L 500.4050, L503.7505 ####[facility] [address] [place], [address] Sodium [Moles/Vol] 137 mmol/L Normal 133-145 [facility] Comment on above: Performed By: #### L 500.4050, L503.7505 ####[facility] [address] [place], [address] T PROT 6.9 g/dL Normal 5.9-8.4 [facility] Comment on above: Performed By: #### L 500.4050, L503.7505 ####[facility] [address] [place], [address] Urea nitrogen [Mass/Vol] 17 mg/dL Normal 4-19 [facility] Comment on above: Performed By: #### L 500.4050, L503.7505 ####[facility] [address] [place], [address] Consultation - Intensiviston 07-16-2025 Consultation - Aoc Director Intelligence Officer Normal [facility] Echo Completeon 07-16-2025 Echo Complete Normal [facility] Echocardiogram study reportO rdered By: Dashawn Christiansen on 07-16-2025 Study report [facility] Work Phone: Emergency Department Summary on 07-16-2025 Emergency Department Summary Normal [facility] Gram stainOrdered By: Bernardo Sharif on 07-16-2025 Microscopic observation Gram stain Nom (Unsp spec) [facility] H AND P Exam - Hospitaliston 07-16-2025 H&P Exam - Hospitalist Normal [facility] Hemoglobin A1con 07-16-2025 HbA1c (Bld) [Mass fraction] 6.1 % High <=5.6 [facility] Comment on above: Result Comment: Norm al < 5.7 % Prediabetic 5.7 - 6.4 % Diabetic >or= 6.5 % Please note range changes. Performed By: #### L 501.9908 ####[facility] [address] [place], [place], [address] Hemoglobin A1c percentageOrd ered By: Jack Haile on 07-16-2025 HbA1c (Bld) [Mass fraction] 6.1 % High <5.7 [facility] Influenza virus A and B and SARS-CoV-2 (COVID-19) and Respiratory syncytial virus RNAOrdered By: Bernardo Sharif on 07-16-2025 SARS-CoV-2 (COVID-19) RNA ALEJANDRO+probe Ql (Unsp spec) [facility] Ketones Test strip Ql (U)Ord ered By: Jack Haile on 07-16-2025 Ketones Ql (U) Negative Negative [facility] L501.4021on 07-16-2025 Trop T High Sen 114 ng/L Invalid Interpretation Code <=14 [facility] Comment on above: Result Comment: Crit ical Result(s) Called at:0517 by: MARTY ROWELLN TO GONZALOPARR??Results read back by same. Performed By: #### L 503.6005, L501.4021, L100.0100 ####[facility] [address] [place], [address] LDL calc ser/plasOrdered By: Jack Haile on 07-16-2025 Cholesterol in LDL [Mass/Vol] 146 mg/dL [facility] Lactic Acidon 07-16-2025 Lactate [Moles/Vol] 1.4 mmol/L Normal 0.0-2.0 [facility] Comment on above: Performed By: #### L 503.6005 ####[facility] [address] [place], [address] Lactate [Moles/Vol] 3.2 mmol/L Invalid Interpretation Code 0.0-2.0 [facility] Comment on above: Order Comment: Y Result Comment: Crit ical Result(s) Called at:0451 by: MARTY WINN TO GRETA Results read back by same. Performed By: #### L 503.6005, L501.4021, L100.0100 ####[facility] [address] [place], [address] Legionella Antigen Urineon 0 07-16-2025 LEGU Normal [facility] Comment on above: Performed By: #### M 300.4500, M100.638, M300.4600, L400.0001 ####[facility] [address] [place], [address] Lipid Profileon 07-16-2025 Cholesterol in LDL [Mass/Vol] 146 mg/dL Normal [facility] Comment on above: Order Comment: WG1 5 F Result Comment: Bord rffcye=984-329 mg/dL Higher Lagh=471 mg/dL or greaterFriedwald Equation for LDL-C Performed By: #### L 500.4100 ####[facility] [address] [place], [address] Cholesterol in VLDL [Mass/Vol] 20 mg/dL Normal 5-40 [facility] Comment on above: Order Comment: WG1 5 F Performed By: #### L 500.4100 ####[facility] [address] [place], [address] Triglyceride [Mass/Vol] 99 mg/dL Normal [facility] Comment on above: Order Comment: WG1 5 F Result Comment: The drugs N-Acetylcysteine and Metamizole may falselydepress this assay.Normal range: <150 mg/dLBorderline High: 150-199 mg/dLHigh: 200-499 mg/dLVery High: >500 mg/dL Performed By: #### L 500.4100 ####[facility] [address] [place], [address] M100.678on 07-16-2025 M100.678 SARS-CoV-2 (COVID 19 ) Negative INFLUENZA A Negative INFLUENZA B Negative RSV PCR Negative Normal [facility] Comment on above: Performed By: #### M 100.2400, M100.2000, M100.678, M100.2200 ####[facility] [address] [place], [address] M8200.1000on 07-16-2025 M8200.1000 Negative Normal [facility] Comment on above: Performed By: #### M 8200.1000 ####[facility] [address] [place], [address] Magnesiumon 07-16-2025 Magnesium [Mass/Vol] 2.8 mg/dL High 1.5-2.2 [facility] Comment on above: Performed By: #### L 501.5200 ####[facility] [address] [place], [address] Microbial respiratory cultur eOrdered By: Bernardo Sharif on 07-16-2025 Microorganism identified Cx Nom (Unsp spec) or Staphylococcus aureus isolated. [facility] Mucus LM Ql (Urine sed)Order ed By: Jack Haile on 07-16-2025 Mucus Ql (Urine sed) 0 SEEN /hpf [facility] Nasal methicillin resistant Staphylococcus aureus (MRSA) DNA detection by PCROrdered By: Eleazar Valle on 07-16-2025 MRSA DNA ALEJANDRO+probe Ql (Nose) [facility] Nitrite Test strip Ql (U)Ord ered By: Jack Haile on 07-16-2025 Nitrite Ql (U) Negative Negative [facility] No Panel InformationOrdered By: Bernardo Sharif on 07-16-2025 04:00:[address] [facility] [address] Sharif [facility] Yes [facility] 158 U/L High <32 [facility] Pro- Brain NATRIURETIC PEPTI Donna 07-16-2025 Natriuretic peptide B (Bld) [Mass/Vol] 7963 pg/mL High <=900 [facility] Comment on above: Result Comment: Hear t Failure Unlikely: < 300 pg/mLHeart Failure Likely< 50 Years: > 450 pg/mL50-75 Years: > 900 pg/mL>75 Years: > 1800 pg/mL Performed By: #### L 500.4050, L503.7505 ####[facility] [address] [place], [place], [id number] Protein Test strip Ql (U)Ord ered By: Jack Haile on 07-16-2025 Protein Ql (U) 30 mg/dl High Negative [facility] RESPIRATORY PANEL MOLECULARo n 07-16-2025 RP PANEL Normal [facility] Comment on above: Performed By: #### M 300.4500, M100.638, M300.4600, L400.0001 ####[facility] [address] [place], [place], [id number] Respiratory pathogens detect ion panel by molecular detection methodOrdered By: Jack Haile on 07-16-2025 Respiratory pathogens DNA and RNA panel ALEJANDRO+probe (Resp) [facility] Serum globulin measurementOr dered By: Bernardo Sharif on 07-16-2025 Globulin (S) [Mass/Vol] 3.1 g/dL 2.2-4.2 [facility] Serum or plasma alanine kinney otransferase (ALT) measurementOrdered By: Bernardo Sharif on 07-16-2025 ALT [Catalytic activity/Vol] 118 U/L High <35 [facility] Serum or plasma albumin erik urement (mass/volume)Ordered By: Bernardo Sharif on 07-16-2025 Albumin [Mass/Vol] 3.8 g/dL 3.4-4.8 [facility] Serum or plasma albumin/glob ulin mass ratioOrdered By: Bernardo Sharif on 07-16-2025 Albumin/Globulin [Mass ratio] 1.2 {ratio} 0.9-2.4 [facility] Serum or plasma alkaline chris sphatase measurementOrdered By: Bernardo Sharif on 07-16-2025 ALP [Catalytic activity/Vol] 163 U/L High 35-104 [facility] Serum or plasma cholesterol in HDL measurement (mass/volume)Ordered By: Jack Haile on 07-16-2025 Cholesterol in HDL [Mass/Vol] 67 mg/dL >40 [facility] Serum or plasma cholesterol measurement (mass/volume)Ordered By: Jack Haile on 07-16-2025 Cholesterol [Mass/Vol] 233 mg/dL High <201 [facility] Serum or plasma creatine kin ase activityOrdered By: Bernardo Sharif on 07-16-2025 CK [Catalytic activity/Vol] 126 U/L 24-195 [facility] Squamous epithelial cells de tection in urine sediment by light microscopyOrdered By: Jack Haile on 07-16-2025 Epithelial cells.squamous LM Ql (Urine sed) 0 SEEN /hpf 5-10 [facility] Strep pneumoniae Antig(UR,CS F)on 07-16-2025 STPAG Normal [facility] Comment on above: Performed By: #### M 300.4500, M100.638, M300.4600, L400.0001 ####[facility] [id number] [place], [address] Total proteinOrdered By: Jaime Sharif on 07-16-2025 Protein [Mass/Vol] 6.9 g/dL 5.9-8.4 [facility] Triglycerideson 07-16-2025 Triglyceride [Mass/Vol] 67 mg/dL Normal [facility] Comment on above: Order Comment: Comme nts: DC when propofol is d/c'dDC when propofol is d/c'd Result Comment: The drugs N-Acetylcysteine and Metamizole may falselydepress this assay.Normal range: <150 mg/dLBorderline High: 150-199 mg/dLHigh: 200-499 mg/dLVery High: >500 mg/dL Performed By: #### L 501.5000, L501.3620 ####[facility] [address] [place], [address] Troponin T HS 2 HRon 025 Trop T High Sen 95 ng/L Invalid Interpretation Code <=14 [facility] Comment on above: Result Comment: Crit ical Result(s) Called at: 0622 by:??MARTY MIMS Results read back by same. Performed By: #### L 499.0042 ####[facility] [id number] [place], [address] Troponin T HS 4 HRon 025 Trop T High Sen 93 ng/L Invalid Interpretation Code <=14 [facility] Comment on above: Result Comment: Crit ical Result(s) Called at: 0946 07/16/2025 by: JOSE ??Results read back by same. Performed By: #### L 499.0043 ####[facility] [id number] [place], [address] Trop T High Sen Normal <=14 [facility] Comment on above: Result Comment: DUPL ICATE ORDER. Performed By: #### L 499.0043 ####[facility] [id number] [place], [address] Troponin T.cardiac [Mass/vol ume] in Serum or Plasma by High sensitivity methodOrdered By: Jack Haile on 07-16-2025 Troponin T.cardiac High sensitivity method [Mass/Vol] 93 ng/L Critically high <14 [facility] Troponin T.cardiac [Mass/vol ume] in Serum or Plasma by High sensitivity methodOrdered By: Bernardo Sharif on 07-16-2025 Troponin T.cardiac High sensitivity method [Mass/Vol] 95 ng/L Critically high <14 [facility] Troponin T.cardiac High sensitivity method [Mass/Vol] 114 ng/L Critically high <14 [facility] Urinalysis, Completeon 07-16 BACTERIA 0 SEEN Normal None Seen [facility] Comment on above: Order Comment: DAVINA TER SPECIMEN Performed By: #### M 300.4500, M100.638, M300.4600, L400.0001 ####[facility] [id number] [place], [address] EPI,SQUAMOUS 0 SEEN Normal 5-10 [facility] Comment on above: Order Comment: DAVINA TER SPECIMEN Performed By: #### M 300.4500, M100.638, M300.4600, L400.0001 ####[facility] [address] [place], [address] Mucus Ql (Urine sed) 0 SEEN Normal [facility] Comment on above: Order Comment: DAVINA TER SPECIMEN Performed By: #### M 300.4500, M100.638, M300.4600, L400.0001 ####[facility] [address] [place], [address] RBC 0 SEEN Normal 0-5 [facility] Comment on above: Order Comment: DAVINA TER SPECIMEN Performed By: #### M 300.4500, M100.638, M300.4600, L400.0001 ####[facility] [address] [place], [address] WBC 0 SEEN Normal 0-5 [facility] Comment on above: Order Comment: DAVINA TER SPECIMEN Performed By: #### M 300.4500, M100.638, M300.4600, L400.0001 ####[facility] [address] [place], [address] Urine Legionella pneumophila antigen detectionOrdered By: Jack Haile on 07-16-2025 L. pneumophila Ag Ql (U) [facility] Urine clarityOrdered By: Nate Haile on 07-16-2025 Clarity (U) Clear Clear [facility] Urine color determinationOrd ered By: Jack Haile on 07-16-2025 Color (U) Straw Yellow [facility] Urine cultureOrdered By: Jaime Sharif on 07-16-2025 Bacteria identified Cx Nom (U) Culture exhibits no growth. [facility] Urine glucose detectionOrder ed By: Jack Haile on 07-16-2025 Glucose Ql (U) Normal mg/dl Normal [facility] Urine leukocyte esterase det ection by dipstickOrdered By: Jack Haile on 07-16-2025 Leukocyte esterase Test strip Ql (U) Negative Negative [facility] Urine pHOrdered By: Jack portillo on 07-16-2025 pH (U) 7.0 [pH] 5.0 - 8.0 [facility] Urine sediment bacteria coun t by microscopy (number/high power field)Ordered By: Jack Haile on 07-16-2025 Bacteria LM.HPF (Urine sed) [#/Area] 0 /[HPF] None Seen [facility] Urine specific gravity measu rementOrdered By: Jack Haile on 07-16-2025 Specific gravity (U) [Rel density] 1.005 1.002-1.030 [facility] Urine urobilinogen measureme ntOrdered By: Jack Haile on 07-16-2025 Urobilinogen Ql (U) Normal mg/dl Normal [facility] White blood cell countOrdere d By: Jack Haile on 07-16-2025 White blood cell count 0 SEEN /hpf 0-5 [facility] .Auto Diffon 06-25-2025 Basophil, Absolute 0.0 10 3/mcL Normal 0.0-0.3 [facility] Comment on above: Performed By: #### C BC, ADIFF, ANEU, APTT, CMP, HFP, GFR #### [address] [address] Basophils/100 WBC (Bld) 0.1 % Normal 0.0-2.5 [facility] Comment on above: Performed By: #### C BC, ADIFF, ANEU, APTT, CMP, HFP, GFR #### [address] [address] Eosinophil, Absolute 0.0 10 3/mcL Normal 0.0-0.7 [facility] Comment on above: Performed By: #### C BC, ADIFF, ANEU, APTT, CMP, HFP, GFR #### [address] [address] Eosinophils/100 WBC (Bld) 0.2 % Normal 0.0-6.0 [facility] Comment on above: Performed By: #### C BC, ADIFF, ANEU, APTT, CMP, HFP, GFR #### [address] [address] Lymphocyte, Absolute 0.9 10 3/mcL Normal 0.9-4.3 [facility] Comment on above: Performed By: #### C BC, ADIFF, ANEU, APTT, CMP, HFP, GFR #### [address] [address] Lymphocytes/100 WBC (Bld) 9.0 % Low 20.0-40.0 [facility] Comment on above: Performed By: #### C BC, ADIFF, ANEU, APTT, CMP, HFP, GFR #### [address] [address] Monocyte, Absolute 0.4 10 3/mcL Normal 0.1-1.4 [facility] Comment on above: Performed By: #### C BC, ADIFF, ANEU, APTT, CMP, HFP, GFR #### [address] [address] Monocytes/100 WBC (Bld) 3.9 % Normal 2.0-13.0 [facility] Comment on above: Performed By: #### C BC, ADIFF, ANEU, APTT, CMP, HFP, GFR #### [address] [address] Neutrophils/100 WBC (Bld) 86.8 % High 50.0-75.0 [facility] Comment on above: Performed By: #### C BC, ADIFF, ANEU, APTT, CMP, HFP, GFR #### [address] [address] .GFRon 09-03-2025 Estimated Glomerular Filtration Rate 63 ml/min/1.73sqm Normal [facility] Comment on above: Result Comment: [...] ADIFF, ANEU, APTT, CMP, HFP, GFR #### [address] [address] .NEUABSon 06-25-2025 Neutrophil, Absolute 8.6 10 3/mcL High 2.3-8.1 [facility] Comment on above: Performed By: #### C BC, ADIFF, ANEU, APTT, CMP, HFP, GFR #### [address] [address] BMPon 06-25-2025 BUN/Creatinine Ratio 19.8 ratio Normal 10.0-22.0 [facility] Comment on above: Performed By: #### C BC, ADIFF, ANEU, APTT, CMP, HFP, GFR #### [place] [id number] [place] [address] Calcium [Mass/Vol] 8.8 mg/dL Normal 8.7-10.4 [facility] Comment on above: Performed By: #### C BC, ADIFF, ANEU, APTT, CMP, HFP, GFR #### [place] [id number] [place] [address] Chloride [Moles/Vol] 104 mmol/L Normal 98-110 [facility] Comment on above: Performed By: #### C BC, ADIFF, ANEU, APTT, CMP, HFP, GFR #### [address] [address] CO2 [Moles/Vol] 24 mmol/L Normal 22-32 [facility] Comment on above: Performed By: #### C BC, ADIFF, ANEU, APTT, CMP, HFP, GFR #### [address] [address] Creatinine [Mass/Vol] 0.96 mg/dL Normal 0.50-1.20 [facility] Comment on above: Result Comment: Test ing performed on Chegg analyzer using enzymatic creatinine methodology. Performed By: #### C BC, ADIFF, ANEU, APTT, CMP, HFP, GFR #### [address] [address] Electrolyte Balance 9.0 mEq/L Normal 4.0-15.0 [facility] Comment on above: Performed By: #### C BC, ADIFF, ANEU, APTT, CMP, HFP, GFR #### [address] [address] Glucose [Mass/Vol] 134 mg/dL High 82-115 [facility] Comment on above: Performed By: #### C BC, ADIFF, ANEU, APTT, CMP, HFP, GFR #### [address] [address] Potassium [Moles/Vol] 4.6 mmol/L Normal 3.5-5.0 [facility] Comment on above: Performed By: #### C BC, ADIFF, ANEU, APTT, CMP, HFP, GFR #### [address] [address] Sodium [Moles/Vol] 137 mmol/L Normal 136-145 [facility] Comment on above: Performed By: #### C BC, ADIFF, ANEU, APTT, CMP, HFP, GFR #### [address] [address] Urea nitrogen [Mass/Vol] 19.0 mg/dL Normal 8.0-22.0 [facility] Comment on above: Performed By: #### C BC, ADIFF, ANEU, APTT, CMP, HFP, GFR #### [place] [address] CBCon 06-25-2025 Erythrocyte distribution width (RBC) [Ratio] 14.7 % Normal 11.5-15.5 [facility] Comment on above: Performed By: #### C BC, ADIFF, ANEU, APTT, CMP, HFP, GFR #### [place] [address] Hematocrit (Bld) [Volume fraction] 33.3 % Low 34.0-46.0 [facility] Comment on above: Performed By: #### C BC, ADIFF, ANEU, APTT, CMP, HFP, GFR #### [place] [address] Hgb 11.1 G/dL Low 12.0-16.0 [facility] Comment on above: Performed By: #### C BC, ADIFF, ANEU, APTT, CMP, HFP, GFR #### [place] [address] MCH (RBC) [Entitic mass] 29.4 pg Normal 27.0-33.0 [facility] Comment on above: Performed By: #### C BC, ADIFF, ANEU, APTT, CMP, HFP, GFR #### [place] [address] MCHC 33.3 G/dL Normal 32.0-36.0 [facility] Comment on above: Performed By: #### C BC, ADIFF, ANEU, APTT, CMP, HFP, GFR #### [place] [address] MCV (RBC) [Entitic vol] 88.5 fL Normal 80.0-99.0 [facility] Comment on above: Performed By: #### C BC, ADIFF, ANEU, APTT, CMP, HFP, GFR #### [place] [address] Platelet 341 10 3/mcL Normal 150-450 [facility] Comment on above: Performed By: #### C BC, ADIFF, ANEU, APTT, CMP, HFP, GFR #### [place] [address] Platelet mean volume (Bld) [Entitic vol] 8.0 fL Normal 6.6-10.5 [facility] Comment on above: Performed By: #### C BC, ADIFF, ANEU, APTT, CMP, HFP, GFR #### [place] [id number] [place] [address] RBC 3.77 10 6/mcL Low 4.10-5.30 [facility] Comment on above: Performed By: #### C BC, ADIFF, ANEU, APTT, CMP, HFP, GFR #### [place] [id number] [place] [address] WBC 10.0 10 3/mcL Normal 4.5-10.8 [facility] Comment on above: Performed By: #### C BC, ADIFF, ANEU, APTT, CMP, HFP, GFR #### [place] [address] LABORATORYOrdered By: SYSTEM SYSTEM on 06-25-2025 Basophils [...] above: Interpretive Data: T esting performed on Chegg analyzer using enzymatic creatinine methodology. Electrolyte Balance 9.0 mEq/L Normal 4.0 - 15 .0 mEq/L ADM SS Eosinophils (Bld) [#/Vol] 0.0 103/mcL Normal 0.0 - 0.7 10^3/mcL AH Workflow SS Eosinophils/100 WBC (Bld) 0.2 % Normal 0.0 - 6.0 % AH Workflow SS Erythrocyte distribution width (RBC) [Ratio] 14.7 % Normal 11.5 - 15.5 % AH Workflow SS Estimated Glomerular Filtration Rate 63 [...] 11.1 G/dL Low 12.0 - 16.0 G/dL Workflow SS Lymphocytes (Bld) [#/Vol] 0.9 103/mcL Normal 0.9 - 4.3 10^3/mcL Workflow SS Lymphocytes/100 WBC (Bld) 9.0 % Low 20.0 - 40.0 % AH Workflow SS Magnesium [Mass/Vol] 2.0 mg/dL Normal 1.6 - 2 .4 mg/dL ADM SS MCH (RBC) [Entitic mass] 29.4 pg Normal 27.0 - 33.0 pg AH Workflow SS MCHC 33.3 G/dL Normal 32.0 - 36.0 G/dL Workflow SS MCV (RBC) [Entitic vol] 88.5 fL Normal 80.0 - 99.0 fL Workflow SS Monocytes (Bld) [#/Vol] 0.4 103/mcL Normal 0.1 - 1.4 10^3/mcL AH Workflow SS Monocytes/100 WBC (Bld) 3.9 % Normal 2.0 - 13.0 % AH Workflow SS Neutrophils (Bld) [#/Vol] 8.6 103/mcL High 2.3 - 8.1 10^3/mcL AH Workflow SS Neutrophils/100 WBC (Bld) 86.8 % High 50.0 - 75.0 % Workflow SS Platelet mean volume (Bld) [Entitic vol] 8.0 fL Normal 6.6 - 10.5 fL Workflow SS Platelets (Bld) [#/Vol] 341 103/mcL Normal 150 - 450 10^3/mcL AH Workflow SS Potassium [Moles/Vol] 4.6 mmol/L Normal 3.5 - 5.0 mEq/L ADM SS RBC (Bld) [#/Vol] 3.77 106/mcL Low 4.10 - 5.3 0 10^6/mcL AH Workflow SS Sodium [Moles/Vol] 137 mmol/L Normal 136 - 145 mEq/L ADM SS Urea nitrogen [Mass/Vol] 19.0 mg/dL Normal 8.0 - 22.0 mg/dL ADM SS Urea nitrogen/Creatinine [Mass ratio] 19.8 ratio Normal 10.0 - 22.0 ratio ADM SS WBC (Bld) [#/Vol] 10.0 103/mcL Normal 4.5 - 10.8 10^3/mcL Workflow SS MGon 06-25-2025 Magnesium [Mass/Vol] 2.0 mg/dL Normal 1.6-2.4 [facility] Comment on above: Performed By: #### C BC, ADIFF, ANEU, APTT, CMP, HFP, GFR #### [address] [address] .Auto Diffon 06-24-2025 Basophil, Absolute 0.0 10 3/mcL Normal 0.0-0.3 [facility] Comment on above: Performed By: #### L AC #### [address] [address] Basophils/100 WBC (Bld) 0.2 % Normal 0.0-2.5 [facility] Comment on above: Performed By: #### L AC #### [address] [address] Eosinophil, Absolute 0.2 10 3/mcL Normal 0.0-0.7 [facility] Comment on above: Performed By: #### L AC #### [address] [address] Eosinophils/100 WBC (Bld) 1.8 % Normal 0.0-6.0 [facility] Comment on above: Performed By: #### L AC #### [facility] [address] [place] [address] Lymphocyte, Absolute 4.1 10 3/mcL Normal 0.9-4.3 [facility] Comment on above: Performed By: #### L AC #### [facility] [address] [place] [address] Lymphocytes/100 WBC (Bld) 31.0 % Normal 20.0-40.0 [facility] Comment on above: Performed By: #### L AC #### [facility] [address] [place] [address] Monocyte, Absolute 1.0 10 3/mcL Normal 0.1-1.4 [facility] Comment on above: Performed By: #### L AC #### [address] [address] Monocytes/100 WBC (Bld) 7.6 % Normal 2.0-13.0 [facility] Comment on above: Performed By: #### L AC #### [address] [address] Neutrophils/100 WBC (Bld) 59.4 % Normal 50.0-75.0 [facility] Comment on above: Performed By: #### L AC #### [address] [address] .GFRon 06-24-2025 Estimated Glomerular Filtration Rate 60 ml/min/1.73sqm Normal [facility] Comment on above: Result Comment: [...] results. Performed By: #### L AC #### [address] [address] .NEUABSon 06-24-2025 Neutrophil, Absolute 7.9 10 3/mcL Normal 2.3-8.1 [facility] Comment on above: Performed By: #### L AC #### [place] [address] APTTon 06-24-2025 aPTT Coag (Bld) [Time] 68.0 s High 25.0-35.0 [facility] Comment on above: Result Comment: For Heparin anticoagulation therapy, the recommended therapeutic range is: 54-77 seconds (APTT Correlation with Anti-Xa therapeutic range of 0.3-0.7 units/ml). PLEASE REFERENCE THE PHARMACY PROTOCOL FOR DOSING. Performed By: #### A PTT ####[place] [address] aPTT Coag (Bld) [Time] 52.5 s High 25.0-35.0 [facility] Comment on above: Result Comment: For Heparin anticoagulation therapy, the recommended therapeutic range is: 54-77 seconds (APTT Correlation with Anti-Xa therapeutic range of 0.3-0.7 units/ml). PLEASE REFERENCE THE PHARMACY PROTOCOL FOR DOSING. Performed By: #### L AC #### [place] [address] aPTT Coag (Bld) [Time] 48.2 s High 25.0-35.0 [facility] Comment on above: Result Comment: For Heparin anticoagulation therapy, the recommended therapeutic range is: 54-77 seconds (APTT Correlation with Anti-Xa therapeutic range of 0.3-0.7 units/ml). PLEASE REFERENCE THE PHARMACY PROTOCOL FOR DOSING. Performed By: #### A PTT #### [place] [address] CBCon 06-24-2025 Erythrocyte distribution width (RBC) [Ratio] 14.3 % Normal 11.5-15.5 [facility] Comment on above: Performed By: #### L AC #### [place] [address] Hematocrit (Bld) [Volume fraction] 36.2 % Normal 34.0-46.0 [facility] Comment on above: Performed By: #### L AC #### [place] [address] Hgb 11.9 G/dL Low 12.0-16.0 [facility] Comment on above: Performed By: #### L AC #### [place] [id number] MCH (RBC) [Entitic mass] 29.1 pg Normal 27.0-33.0 [facility] Comment on above: Performed By: #### L AC #### [place] [address] MCHC 32.9 G/dL Normal 32.0-36.0 [facility] Comment on above: Performed By: #### L AC #### [place] [address] MCV (RBC) [Entitic vol] 88.3 fL Normal 80.0-99.0 [facility] Comment on above: Performed By: #### L AC #### [place] [id number] Platelet 371 10 3/mcL Normal 150-450 [facility] Comment on above: Performed By: #### L AC #### [place] [id number] Platelet mean volume (Bld) [Entitic vol] 8.1 fL Normal 6.6-10.5 [facility] Comment on above: Performed By: #### L AC #### [place] [id number] RBC 4.10 10 6/mcL Normal 4.10-5.30 [facility] Comment on above: Performed By: #### L AC #### [place] [id number] WBC 13.3 10 3/mcL High 4.5-10.8 [facility] Comment on above: Performed By: #### L AC #### [place] [id number] CMPon 06-24-2025 Albumin Level 3.5 G/dL Normal 3.2-4.8 [facility] Comment on above: Performed By: #### L AC #### [address] [address] Albumin/Globulin [Mass ratio] 1.2 {ratio} Normal 0.9-1.6 [facility] Comment on above: Performed By: #### L AC #### [address] [address] ALP [Catalytic activity/Vol] 69 U/L Normal 38-126 [facility] Comment on above: Performed By: #### L AC #### [address] [address] ALT [Catalytic activity/Vol] 74 U/L High 10-49 [facility] Comment on above: Performed By: #### L AC #### [address] [address] AST [Catalytic activity/Vol] 44 U/L High 8-34 [facility] Comment on above: Performed By: #### L AC #### [address] [address] Bili Total 0.40 mg/dL Normal 0.20-1.20 [facility] Comment on above: Result Comment: Use of this assay is not recommended for patients undergoing treatment with eltrombopag due to the potential for falsely elevated results. Performed By: #### L AC #### [place] [id number] BUN/Creatinine Ratio 19.0 ratio Normal 10.0-22.0 [facility] Comment on above: Performed By: #### L AC #### [address] [address] Calcium [Mass/Vol] 9.2 mg/dL Normal 8.7-10.4 [facility] Comment on above: Performed By: #### L AC #### [place] [id number] Chloride [Moles/Vol] 102 mmol/L Normal 98-110 [facility] Comment on above: Performed By: #### L AC #### [place] [address] CO2 [Moles/Vol] 30 mmol/L Normal 22-32 [facility] Comment on above: Performed By: #### L AC #### [address] [address] Creatinine [Mass/Vol] 1.00 mg/dL Normal 0.50-1.20 [facility] Comment on above: Result Comment: Test ing performed on Chegg analyzer using enzymatic creatinine methodology. Performed By: #### L AC #### [address] [address] Electrolyte Balance 7.0 mEq/L Normal 4.0-15.0 [facility] Comment on above: Performed By: #### L AC #### [address] [address] Globulin 3.0 G/dL Normal 2.5-4.2 [facility] Comment on above: Performed By: #### L AC #### [address] [address] Glucose [Mass/Vol] 91 mg/dL Normal 82-115 [facility] Comment on above: Performed By: #### L AC #### [address] [address] Potassium [Moles/Vol] 3.8 mmol/L Normal 3.5-5.0 [facility] Comment on above: Performed By: #### L AC #### [address] [address] Sodium [Moles/Vol] 139 mmol/L Normal 136-145 [facility] Comment on above: Performed By: #### L AC #### [address] [address] Total Protein 6.5 G/dL Normal 5.7-8.2 [facility] Comment on above: Performed By: #### L AC #### [address] [address] Urea nitrogen [Mass/Vol] 19.0 mg/dL Normal 8.0-22.0 [facility] Comment on above: Performed By: #### L AC #### [place] [address] LABORATORYOrdered By: SYSTEM SYSTEM on 06-24-2025 aPTT Coag (Bld) [Time] 68.0 s High 25.0 - 35.0 seconds [facility] Comment on above: Interpretive Data: F or Heparin anticoagulation therapy, the recommended therapeutic range is: 54-77 seconds (APTT Correlation with Anti-Xa therapeutic range of 0.3-0.7 units/ml). PLEASE REFERENCE THE PHARMACY PROTOCOL FOR DOSING. Albumin BCP dye [Mass/Vol] 3.5 G/dL Normal 3.2 - 4.8 G/dL ADM SS Albumin/Globulin [Mass ratio] 1.2 {ratio} Normal 0.9 - 1.6 ratio ADM SS ALP [Catalytic activity/Vol] 69 U/L [...] 44 U/L High 8 - 34 U/L ADM SS Basophils (Bld) [#/Vol] 0.0 103/mcL [...] - 32 mEq/L ADM SS Creatinine [Mass/Vol] 1.00 mg/dL Normal 0.50 - 1.20 mg/dL ADM SS Comment on above: Interpretive Data: T esting performed on Chegg analyzer using enzymatic creatinine methodology. Electrolyte Balance 7.0 mEq/L Normal 4.0 - 15 .0 mEq/L ADM SS Eosinophils (Bld) [#/Vol] 0.2 103/mcL Normal 0.0 - 0.7 10^3/mcL Workflow SS Eosinophils/100 WBC (Bld) 1.8 % Normal 0.0 - 6.0 % Workflow SS Erythrocyte distribution width (RBC) [Ratio] 14.3 % Normal 11.5 - 15.5 % Workflow SS Estimated Glomerular Filtration Rate 60 [...] 3.0 G/dL Normal 2.5 - 4.2 G/dL ADM SS Glucose [Mass/Vol] 91 mg/dL Normal 82 - 115 mg/dL ADM SS Hematocrit (Bld) [Volume fraction] 36.2 % Normal 34.0 - 46.0 % Workflow SS Hemoglobin (Bld) [Mass/Vol] 11.9 G/dL Low 12.0 - 16.0 G/dL Workflow SS Lymphocytes (Bld) [#/Vol] 4.1 103/mcL Normal 0.9 - 4.3 10^3/mcL Workflow SS Lymphocytes/100 WBC (Bld) 31.0 % Normal 20.0 - 40.0 % Workflow SS Magnesium [Mass/Vol] 2.2 mg/dL Normal [...] 8.1 fL Normal 6.6 - 10.5 fL Workflow SS Platelets (Bld) [#/Vol] 371 103/mcL Normal 150 - 450 10^3/mcL Workflow SS Potassium [Moles/Vol] 3.8 mmol/L Normal 3.5 - 5.0 mEq/L ADM SS Protein [Mass/Vol] 6.5 G/dL Normal 5.7 - 8.2 G/dL ADM SS RBC (Bld) [#/Vol] 4.10 106/mcL Normal 4.10 - 5.3 0 10^6/mcL Workflow SS Sodium [Moles/Vol] 139 mmol/L Normal 136 - 145 mEq/L ADM SS Urea nitrogen [Mass/Vol] 19.0 mg/dL Normal 8.0 - 22.0 mg/dL ADM SS Urea nitrogen/Creatinine [Mass ratio] 19.0 ratio Normal 10.0 - 22.0 ratio ADM SS WBC (Bld) [#/Vol] 13.3 103/mcL High 4.5 - 10.8 10^3/mcL AH Workflow SS aPTT Coag (Bld) [Time] 48.2 s High 25.0 - 35.0 seconds [facility] SS Comment on above: Interpretive Data: F or Heparin anticoagulation therapy, the recommended therapeutic range is: 54-77 seconds (APTT Correlation with Anti-Xa therapeutic range of 0.3-0.7 units/ml). PLEASE REFERENCE THE PHARMACY PROTOCOL FOR DOSING. MGon 06-24-2025 Magnesium [Mass/Vol] 2.2 mg/dL Normal 1.6-2.4 [facility] Comment on above: Performed By: #### L AC #### [address] [id number] .Auto Diffon 06-23-2025 Basophil, Absolute 0.1 10 3/mcL Normal 0.0-0.3 [facility] Comment on above: Performed By: #### A PTT #### [address] [address] Basophils/100 WBC (Bld) 0.5 % Normal 0.0-2.5 [facility] Comment on above: Performed By: #### A PTT #### [address] [address] Eosinophil, Absolute 0.2 10 3/mcL Normal 0.0-0.7 [facility] Comment on above: Performed By: #### A PTT #### [address] [address] Eosinophils/100 WBC (Bld) 2.0 % Normal 0.0-6.0 [facility] Comment on above: Performed By: #### A PTT #### [address] [address] Lymphocyte, Absolute 3.7 10 3/mcL Normal 0.9-4.3 [facility] [facility] Comment on above: Performed By: #### A PTT #### [address] [address] Lymphocytes/100 WBC (Bld) 31.3 % Normal 20.0-40.0 [facility] Comment on above: Performed By: #### A PTT #### [address] [address] Monocyte, Absolute 1.0 10 3/mcL Normal 0.1-1.4 [facility] Comment on above: Performed By: #### A PTT #### [address] [address] Monocytes/100 WBC (Bld) 8.2 % Normal 2.0-13.0 [facility] Comment on above: Performed By: #### A PTT #### [address] [address] Neutrophils/100 WBC (Bld) 58.0 % Normal 50.0-75.0 [facility] Comment on above: Performed By: #### A PTT #### [address] [address] .GFRon 06-23-2025 Estimated Glomerular Filtration Rate 59 ml/min/1.73sqm Normal [facility] Comment on above: Result Comment: [...] results. Performed By: #### A PTT #### [address] [address] .NEUABSon 06-23-2025 Neutrophil, Absolute 6.9 10 3/mcL Normal 2.3-8.1 [facility] Comment on above: Performed By: #### A PTT #### [place] [id number] APTTon 06-23-2025 aPTT Coag (Bld) [Time] 52.7 s High 25.0-35.0 [facility] Comment on above: Result Comment: For Heparin anticoagulation therapy, the recommended therapeutic range is: 54-77 seconds (APTT Correlation with Anti-Xa therapeutic range of 0.3-0.7 units/ml). PLEASE REFERENCE THE PHARMACY PROTOCOL FOR DOSING. Performed By: #### L AC #### [place] [address] aPTT Coag (Bld) [Time] 67.1 s High 25.0-35.0 [facility] Comment on above: Result Comment: For Heparin anticoagulation therapy, the recommended therapeutic range is: 54-77 seconds (APTT Correlation with Anti-Xa therapeutic range of 0.3-0.7 units/ml). PLEASE REFERENCE THE PHARMACY PROTOCOL FOR DOSING. Performed By: #### A PTT ####[address] [address] aPTT Coag (Bld) [Time] 50.7 s High 25.0-35.0 [facility] Comment on above: Result Comment: For Heparin anticoagulation therapy, the recommended therapeutic range is: 54-77 seconds (APTT Correlation with Anti-Xa therapeutic range of 0.3-0.7 units/ml). PLEASE REFERENCE THE PHARMACY PROTOCOL FOR DOSING. Performed By: #### C BC, ADIFF, ANEU, APTT, CMP, HFP, GFR #### [address] [address] BMPon 06-23-2025 BUN/Creatinine Ratio 24.5 ratio High 10.0-22.0 [facility] Comment on above: Performed By: #### A PTT #### [address] [address] Calcium [Mass/Vol] 9.0 mg/dL Normal 8.7-10.4 [facility] Comment on above: Performed By: #### A PTT #### [address] [address] Chloride [Moles/Vol] 104 mmol/L Normal 98-110 [facility] Comment on above: Performed By: #### A PTT #### [address] [address] CO2 [Moles/Vol] 29 mmol/L Normal 22-32 [facility] Comment on above: Performed By: #### A PTT #### [address] [address] Creatinine [Mass/Vol] 1.02 mg/dL Normal 0.50-1.20 [facility] Comment on above: Result Comment: Test ing performed on Chegg analyzer using enzymatic creatinine methodology. Performed By: #### A PTT #### [address] [address] Electrolyte Balance 5.0 mEq/L Normal 4.0-15.0 [facility] Comment on above: Performed By: #### A PTT #### [address] [address] Glucose [Mass/Vol] 90 mg/dL Normal 82-115 [facility] Comment on above: Performed By: #### A PTT #### [address] [address] Potassium [Moles/Vol] 4.5 mmol/L Normal 3.5-5.0 [facility] Comment on above: Performed By: #### A PTT #### [address] [address] Sodium [Moles/Vol] 138 mmol/L Normal 136-145 [facility] Comment on above: Performed By: #### A PTT #### [place] [id number] Urea nitrogen [Mass/Vol] 25.0 mg/dL High 8.0-22.0 [facility] Comment on above: Performed By: #### A PTT #### [address] [address] CBCon 06-23-2025 Erythrocyte distribution width (RBC) [Ratio] 14.1 % Normal 11.5-15.5 [facility] Comment on above: Performed By: #### A PTT #### [address] [address] Hematocrit (Bld) [Volume fraction] 34.8 % Normal 34.0-46.0 [facility] Comment on above: Performed By: #### A PTT #### [address] [address] Hgb 11.4 G/dL Low 12.0-16.0 [facility] Comment on above: Performed By: #### A PTT #### [address] [address] MCH (RBC) [Entitic mass] 28.8 pg Normal 27.0-33.0 [facility] Comment on above: Performed By: #### A PTT #### [place] [address] MCHC 32.7 G/dL Normal 32.0-36.0 [facility] Comment on above: Performed By: #### A PTT #### [place] [address] MCV (RBC) [Entitic vol] 87.9 fL Normal 80.0-99.0 [place] [facility] Comment on above: Performed By: #### A PTT #### [place] [address] Platelet 324 10 3/mcL Normal 150-450 [facility] Comment on above: Performed By: #### A PTT #### [place] [address] Platelet mean volume (Bld) [Entitic vol] 8.7 fL Normal 6.6-10.5 [facility] Comment on above: Performed By: #### A PTT #### [place] [address] RBC 3.96 10 6/mcL Low 4.10-5.30 [facility] Comment on above: Performed By: #### A PTT #### [place] [address] WBC 11.8 10 3/mcL High 4.5-10.8 [facility] Comment on above: Performed By: #### A PTT #### [place] [address] LABORATORYOrdered By: SYSTEM SYSTEM on 06-23-2025 Basophils (Bld) [#/Vol] 0.1 103/mcL Normal 0.0 - 0.3 10^3/mcL AH Workflow SS Basophils/100 WBC (Bld) 0.5 % Normal 0.0 - 2.5 % AH Workflow SS Calcium [Mass/Vol] 9.0 mg/dL Normal 8.7 - 10. 4 mg/dL AH ADM SS Chloride [Moles/Vol] 104 mmol/L Normal 98 - 11 0 mEq/L AH ADM SS CO2 [Moles/Vol] 29 mmol/L Normal 22 - 32 mEq/L AH ADM SS Creatinine [Mass/Vol] 1.02 mg/dL Normal 0.50 - 1.20 mg/dL ADM SS Comment on above: Interpretive Data: T esting performed on Chegg analyzer using enzymatic creatinine methodology. Electrolyte Balance [...] 34.8 % Normal 34.0 - 46.0 % Workflow SS Hemoglobin (Bld) [Mass/Vol] 11.4 G/dL Low 12.0 - 16.0 G/dL Workflow SS Lymphocytes (Bld) [#/Vol] 3.7 103/mcL Normal 0.9 - 4.3 10^3/mcL Workflow SS Lymphocytes/100 WBC (Bld) 31.3 % Normal 20.0 - 40.0 % Workflow SS Magnesium [Mass/Vol] 2.3 mg/dL Normal 1.6 - 2 .4 mg/dL ADM SS MCH (RBC) [Entitic mass] 28.8 pg Normal 27.0 - 33.0 pg Workflow SS MCHC 32.7 G/dL Normal 32.0 - 36.0 G/dL Workflow SS MCV (RBC) [Entitic vol] 87.9 fL Normal 80.0 - 99.0 fL AH [...] 138 mmol/L Normal 136 - 145 mEq/L ADM SS Urea nitrogen [Mass/Vol] 25.0 mg/dL High 8.0 - 22.0 mg/dL AH ADM SS Urea nitrogen/Creatinine [Mass ratio] 24.5 ratio High 10.0 - 22.0 ratio ADM SS WBC (Bld) [#/Vol] 11.8 103/mcL High 4.5 - 10.8 10^3/mcL Workflow SS MGon 06-23-2025 Magnesium [Mass/Vol] 2.3 mg/dL Normal 1.6-2.4 [facility] Comment on above: Performed By: #### A PTT #### [address] [address] .Auto Diffon 06-22-2025 Basophil, Absolute 0.0 10 3/mcL Normal 0.0-0.3 [facility] Comment on above: Performed By: #### L AC #### [address] [address] Basophils/100 WBC (Bld) 0.6 % Normal 0.0-2.5 [place] [facility] Comment on above: Performed By: #### L AC #### [address] [address] Eosinophil, Absolute 0.0 10 3/mcL Normal 0.0-0.7 [facility] Comment on above: Performed By: #### L AC #### [address] [address] Eosinophils/100 WBC (Bld) 0.4 % Normal 0.0-6.0 [facility] Comment on above: Performed By: #### L AC #### [address] [address] Lymphocyte, Absolute 1.7 10 3/mcL Normal 0.9-4.3 [facility] Comment on above: Performed By: #### L AC #### [address] [address] Lymphocytes/100 WBC (Bld) 23.0 % Normal 20.0-40.0 [facility] Comment on above: Performed By: #### L AC #### [address] [address] Monocyte, Absolute 0.7 10 3/mcL Normal 0.1-1.4 [facility] Comment on above: Performed By: #### L AC #### [address] [address] Monocytes/100 WBC (Bld) 9.6 % Normal 2.0-13.0 [place] [facility] Comment on above: Performed By: #### L AC #### [address] [address] Neutrophils/100 WBC (Bld) 66.4 % Normal 50.0-75.0 [facility] Comment on above: Performed By: #### L AC #### [address] [address] .GFRon 06-22-2025 Estimated Glomerular Filtration Rate 63 ml/min/1.73sqm Normal [facility] Comment on above: Result Comment: [...] results. Performed By: #### L AC #### [place] [address] .NEUABSon 06-22-2025 Neutrophil, Absolute 5.0 10 3/mcL Normal 2.3-8.1 [facility] Comment on above: Performed By: #### L AC #### [place] [address] APTTon 06-22-2025 aPTT Coag (Bld) [Time] 47.8 s High 25.0-35.0 [facility] Comment on above: Result Comment: For Heparin anticoagulation therapy, the recommended therapeutic range is: 54-77 seconds (APTT Correlation with Anti-Xa therapeutic range of 0.3-0.7 units/ml). PLEASE REFERENCE THE PHARMACY PROTOCOL FOR DOSING. Performed By: #### L AC #### [place] [address] aPTT Coag (Bld) [Time] 48.7 s High 25.0-35.0 [facility] Comment on above: Result Comment: For Heparin anticoagulation therapy, the recommended therapeutic range is: 54-77 seconds (APTT Correlation with Anti-Xa therapeutic range of 0.3-0.7 units/ml). PLEASE REFERENCE THE PHARMACY PROTOCOL FOR DOSING. Performed By: #### A PTT ####[place] [address] aPTT Coag (Bld) [Time] 52.7 s High 25.0-35.0 [facility] Comment on above: Result Comment: For Heparin anticoagulation therapy, the recommended therapeutic range is: 54-77 seconds (APTT Correlation with Anti-Xa therapeutic range of 0.3-0.7 units/ml). PLEASE REFERENCE THE PHARMACY PROTOCOL FOR DOSING. Performed By: #### A PTT ####[place] [address] aPTT Coag (Bld) [Time] 49.2 s High 25.0-35.0 [facility] Comment on above: Result Comment: For Heparin anticoagulation therapy, the recommended therapeutic range is: 54-77 seconds (APTT Correlation with Anti-Xa therapeutic range of 0.3-0.7 units/ml). PLEASE REFERENCE THE PHARMACY PROTOCOL FOR DOSING. Performed By: #### A PTT ####[place] [address] BMPon 06-22-2025 BUN/Creatinine Ratio 30.2 ratio High 10.0-22.0 [facility] Comment on above: Performed By: #### L AC #### [place] [id number] Calcium [Mass/Vol] 8.6 mg/dL Low 8.7-10.4 [facility] Comment on above: Performed By: #### L AC #### [address] [address] Chloride [Moles/Vol] 101 mmol/L Normal 98-110 [facility] Comment on above: Performed By: #### L AC #### [place] [id number] CO2 [Moles/Vol] 29 mmol/L Normal 22-32 [facility] Comment on above: Performed By: #### L AC #### [place] [id number] Creatinine [Mass/Vol] 0.96 mg/dL Normal 0.50-1.20 [facility] Comment on above: Result Comment: Test ing performed on Chegg analyzer using enzymatic creatinine methodology. Performed By: #### L AC #### [place] [id number] Electrolyte Balance 9.0 mEq/L Normal 4.0-15.0 [facility] Comment on above: Performed By: #### L AC #### [address] [address] Glucose [Mass/Vol] 108 mg/dL Normal 82-115 [facility] Comment on above: Performed By: #### L AC #### [place] [id number] Potassium [Moles/Vol] 3.6 mmol/L Normal 3.5-5.0 [facility] Comment on above: Performed By: #### L AC #### [place] [id number] Sodium [Moles/Vol] 139 mmol/L Normal 136-145 [facility] Comment on above: Performed By: #### L AC #### [place] [id number] Urea nitrogen [Mass/Vol] 29.0 mg/dL High 8.0-22.0 [facility] Comment on above: Performed By: #### L AC #### [place] [id number] CBCon 06-22-2025 Erythrocyte distribution width (RBC) [Ratio] 13.9 % Normal 11.5-15.5 [facility] Comment on above: Performed By: #### L AC #### [place] [id number] Hematocrit (Bld) [Volume fraction] 34.9 % Normal 34.0-46.0 [facility] Comment on above: Performed By: #### L AC #### [place] [address] Hgb 11.5 G/dL Low 12.0-16.0 [facility] Comment on above: Performed By: #### L AC #### [place] [id number] MCH (RBC) [Entitic mass] 29.2 pg Normal 27.0-33.0 [facility] Comment on above: Performed By: #### L AC #### [place] [id number] MCHC 32.9 G/dL Normal 32.0-36.0 [facility] Comment on above: Performed By: #### L AC #### [place] [id number] MCV (RBC) [Entitic vol] 88.6 fL Normal 80.0-99.0 [place] [facility] Comment on above: Performed By: #### L AC #### [place] [address] Platelet 316 10 3/mcL Normal 150-450 [facility] Comment on above: Performed By: #### L AC #### [place] [address] Platelet mean volume (Bld) [Entitic vol] 8.0 fL Normal 6.6-10.5 [facility] Comment on above: Performed By: #### L AC #### [place] [address] RBC 3.94 10 6/mcL Low 4.10-5.30 [facility] Comment on above: Performed By: #### L AC #### [place] [address] WBC 7.5 10 3/mcL Normal 4.5-10.8 [facility] Comment on above: Performed By: #### L AC #### [place] [address] MGon 06-22-2025 Magnesium [Mass/Vol] 2.1 mg/dL Normal 1.6-2.4 [facility] Comment on above: Performed By: #### L AC #### [place] [address] .Auto Diffon 06-21-2025 Basophil, Absolute 0.1 10 3/mcL Normal 0.0-0.3 [facility] Comment on above: Performed By: #### B G #### [place] [id number] Basophils/100 WBC (Bld) 0.7 % Normal 0.0-2.5 [place] [facility] Comment on above: Performed By: #### B G #### [place] [id number] Eosinophil, Absolute 0.1 10 3/mcL Normal 0.0-0.7 [facility] Comment on above: Performed By: #### B G #### [facility] [address] [place] [address] Eosinophils/100 WBC (Bld) 0.8 % Normal 0.0-6.0 [facility] Comment on above: Performed By: #### B G #### [facility] [address] [place] [address] Lymphocyte, Absolute 2.8 10 3/mcL Normal 0.9-4.3 [facility] Comment on above: Performed By: #### B G #### [address] [address] Lymphocytes/100 WBC (Bld) 30.7 % Normal 20.0-40.0 [facility] Comment on above: Performed By: #### B G #### [address] [address] Monocyte, Absolute 1.0 10 3/mcL Normal 0.1-1.4 [facility] Comment on above: Performed By: #### B G #### [address] [address] Monocytes/100 WBC (Bld) 11.1 % Normal 2.0-13.0 [place] [facility] Comment on above: Performed By: #### B G #### [address] [address] Neutrophils/100 WBC (Bld) 56.7 % Normal 50.0-75.0 [facility] Comment on above: Performed By: #### B G #### [address] [address] .GFRon 06-21-2025 Estimated Glomerular Filtration Rate 72 ml/min/1.73sqm Normal [facility] Comment on above: Result Comment: [...] ADIFF, ANEU, APTT, CMP, HFP, GFR #### [address] [address] .NEUABSon 06-21-2025 Neutrophil, Absolute 5.1 10 3/mcL Normal 2.3-8.1 [facility] Comment on above: Performed By: #### B G #### [address] [address] APTTon 06-21-2025 aPTT Coag (Bld) [Time] 133.5 s Criticall y abnormal 25.0-35.0 [facility] Comment on above: Order Comment: [place] to nurse and they were not expecting results that were given from specimen.DH. Result Comment: For Heparin anticoagulation therapy, the recommended therapeutic range is: 54-77 seconds (APTT Correlation with Anti-Xa therapeutic range of 0.3-0.7 units/ml). PLEASE REFERENCE THE PHARMACY PROTOCOL FOR DOSING. Performed By: #### D RUGS #### [address] [address] aPTT Coag (Bld) [Time] 35.0 s Normal 25.0-35.0 [facility] Comment on above: Result Comment: For Heparin anticoagulation therapy, the recommended therapeutic range is: 54-77 seconds (APTT Correlation with Anti-Xa therapeutic range of 0.3-0.7 units/ml). PLEASE REFERENCE THE PHARMACY PROTOCOL FOR DOSING. Performed By: #### C BC, ADIFF, ANEU, APTT, CMP, HFP, GFR #### [address] [address] aPTT Coag (Bld) [Time] 46.2 s High 25.0-35.0 [facility] Comment on above: Result Comment: For Heparin anticoagulation therapy, the recommended therapeutic range is: 54-77 seconds (APTT Correlation with Anti-Xa therapeutic range of 0.3-0.7 units/ml). PLEASE REFERENCE THE PHARMACY PROTOCOL FOR DOSING. Performed By: #### A PTT #### [address] [address] BMPon 06-21-2025 BUN/Creatinine Ratio 27.9 ratio High 10.0-22.0 [facility] Comment on above: Performed By: #### C BC, ADIFF, ANEU, APTT, CMP, HFP, GFR #### [place] [id number] Calcium [Mass/Vol] 9.0 mg/dL Normal 8.7-10.4 [facility] Comment on above: Performed By: #### C BC, ADIFF, ANEU, APTT, CMP, HFP, GFR #### [place] [id number] Chloride [Moles/Vol] 100 mmol/L Normal 98-110 [facility] Comment on above: Performed By: #### C BC, ADIFF, ANEU, APTT, CMP, HFP, GFR #### [place] [id number] CO2 [Moles/Vol] 30 mmol/L Normal 22-32 [facility] Comment on above: Performed By: #### C BC, ADIFF, ANEU, APTT, CMP, HFP, GFR #### [place] [id number] Creatinine [Mass/Vol] 0.86 mg/dL Normal 0.50-1.20 [facility] Comment on above: Result Comment: Test ing performed on Chegg analyzer using enzymatic creatinine methodology. Performed By: #### C BC, ADIFF, ANEU, APTT, CMP, HFP, GFR #### [place] [id number] Electrolyte Balance 10.0 mEq/L Normal 4.0-15.0 [facility] Comment on above: Performed By: #### C BC, ADIFF, ANEU, APTT, CMP, HFP, GFR #### [place] [id number] Glucose [Mass/Vol] 91 mg/dL Normal 82-115 [facility] Comment on above: Performed By: #### C BC, ADIFF, ANEU, APTT, CMP, HFP, GFR #### [place] [id number] Potassium [Moles/Vol] 3.6 mmol/L Normal 3.5-5.0 [facility] Comment on above: Performed By: #### C BC, ADIFF, ANEU, APTT, CMP, HFP, GFR #### [place] [id number] Sodium [Moles/Vol] 140 mmol/L Normal 136-145 [facility] Comment on above: Performed By: #### C BC, ADIFF, ANEU, APTT, CMP, HFP, GFR #### [place] [id number] Urea nitrogen [Mass/Vol] 24.0 mg/dL High 8.0-22.0 [facility] Comment on above: Performed By: #### C BC, ADIFF, ANEU, APTT, CMP, HFP, GFR #### [place] [id number] CBCon 06-21-2025 Erythrocyte distribution width (RBC) [Ratio] 14.2 % Normal 11.5-15.5 [facility] Comment on above: Performed By: #### B G #### [place] [address] Hematocrit (Bld) [Volume fraction] 35.4 % Normal 34.0-46.0 [facility] Comment on above: Performed By: #### B G #### [place] [address] Hgb 11.8 G/dL Low 12.0-16.0 [facility] Comment on above: Performed By: #### B G #### [place] [id number] MCH (RBC) [Entitic mass] 29.0 pg Normal 27.0-33.0 [facility] Comment on above: Performed By: #### B G #### [place] [address] MCHC 33.4 G/dL Normal 32.0-36.0 [facility] Comment on above: Performed By: #### B G #### [place] [id number] MCV (RBC) [Entitic vol] 87.1 fL Normal 80.0-99.0 [place] [facility] Comment on above: Performed By: #### B G #### [place] [address] Platelet 329 10 3/mcL Normal 150-450 [facility] Comment on above: Performed By: #### B G #### [place] [address] Platelet mean volume (Bld) [Entitic vol] 8.6 fL Normal 6.6-10.5 [facility] Comment on above: Performed By: #### B G #### [place] [address] RBC 4.07 10 6/mcL Low 4.10-5.30 [facility] Comment on above: Performed By: #### B G #### [place] [address] WBC 9.0 10 3/mcL Normal 4.5-10.8 [facility] Comment on above: Performed By: #### B G #### [place] [address] LABORATORYOrdered By: Mirtha Bennett on 06-21-2025 Glucose [Mass/Vol] 94 mg/dL Normal 82 - 115 mg/dL [facility] MGon 06-21-2025 Magnesium [Mass/Vol] 2.4 mg/dL Normal 1.6-2.4 [facility] Comment on above: Performed By: #### C BC, ADIFF, ANEU, APTT, CMP, HFP, GFR #### [place] [id number] .Auto Diffon 06-20-2025 Basophil, Absolute 0.0 10 3/mcL Normal 0.0-0.3 [facility] Comment on above: Performed By: #### L AC #### [place] [address] Basophils/100 WBC (Bld) 0.2 % Normal 0.0-2.5 [place] [facility] Comment on above: Performed By: #### L AC #### [address] [address] Eosinophil, Absolute 0.0 10 3/mcL Normal 0.0-0.7 [facility] Comment on above: Performed By: #### L AC #### [address] [address] Eosinophils/100 WBC (Bld) 0.0 % Normal 0.0-6.0 [facility] Comment on above: Performed By: #### L AC #### [address] [address] Lymphocyte, Absolute 0.9 10 3/mcL Normal 0.9-4.3 [facility] Comment on above: Performed By: #### L AC #### [address] [address] Lymphocytes/100 WBC (Bld) 14.5 % Low 20.0-40.0 [facility] Comment on above: Performed By: #### L AC #### [address] [address] Monocyte, Absolute 0.5 10 3/mcL Normal 0.1-1.4 [facility] Comment on above: Performed By: #### L AC #### [address] [address] Monocytes/100 WBC (Bld) 7.8 % Normal 2.0-13.0 [place] [facility] Comment on above: Performed By: #### L AC #### [address] [address] Neutrophils/100 WBC (Bld) 77.5 % High 50.0-75.0 [facility] Comment on above: Performed By: #### L AC #### [address] [address] .GFRon 06-20-2025 Estimated Glomerular Filtration Rate 53 ml/min/1.73sqm Normal [facility] Comment on above: Result Comment: [...] results. Performed By: #### D RUGS #### [address] [address] .NEUABSon 06-20-2025 Neutrophil, Absolute 5.0 10 3/mcL Normal 2.3-8.1 [facility] Comment on above: Performed By: #### L AC #### [place] [address] APTTon 06-20-2025 aPTT Coag (Bld) [Time] 49.7 s High 25.0-35.0 [facility] Comment on above: Result Comment: Resu lts verified by repeat analysis. - [id number] - 06/20/25, 6:34 PM For Heparin anticoagulation therapy, the recommended therapeutic range is: 54-77 seconds (APTT Correlation with Anti-Xa therapeutic range of 0.3-0.7 units/ml). PLEASE REFERENCE THE PHARMACY PROTOCOL FOR DOSING. Performed By: #### L AC #### [place] [address] aPTT Coag (Bld) [Time] 73.1 s High 25.0-35.0 [facility] Comment on above: Result Comment: For Heparin anticoagulation therapy, the recommended therapeutic range is: 54-77 seconds (APTT Correlation with Anti-Xa therapeutic range of 0.3-0.7 units/ml). PLEASE REFERENCE THE PHARMACY PROTOCOL FOR DOSING. Performed By: #### A PTT ####[place] [address] aPTT Coag (Bld) [Time] 67.1 s High 25.0-35.0 [facility] Comment on above: Result Comment: For Heparin anticoagulation therapy, the recommended therapeutic range is: 54-77 seconds (APTT Correlation with Anti-Xa therapeutic range of 0.3-0.7 units/ml). PLEASE REFERENCE THE PHARMACY PROTOCOL FOR DOSING. Performed By: #### A PTT ####[address] [address] BMPon 06-20-2025 BUN/Creatinine Ratio 37.8 ratio High 10.0-22.0 [facility] Comment on above: Performed By: #### L AC #### [address] [address] Calcium [Mass/Vol] 8.9 mg/dL Normal 8.7-10.4 [facility] Comment on above: Performed By: #### L AC #### [address] [address] Chloride [Moles/Vol] 98 mmol/L Normal 98-110 [facility] Comment on above: Performed By: #### L AC #### [address] [address] CO2 [Moles/Vol] 30 mmol/L Normal 22-32 [facility] Comment on above: Performed By: #### L AC #### [place] [id number] Creatinine [Mass/Vol] 1.11 mg/dL Normal 0.50-1.20 [facility] Comment on above: Result Comment: Test ing performed on [employer] analyzer using enzymatic creatinine methodology. Performed By: #### L AC #### [address] [address] Electrolyte Balance 11.0 mEq/L Normal 4.0-15.0 [facility] Comment on above: Performed By: #### L AC #### [place] [id number] Glucose [Mass/Vol] 116 mg/dL High 82-115 [facility] Comment on above: Performed By: #### L AC #### [place] [id number] Potassium [Moles/Vol] 3.5 mmol/L Normal 3.5-5.0 [facility] Comment on above: Performed By: #### L AC #### [place] [id number] Sodium [Moles/Vol] 139 mmol/L Normal 136-145 [facility] Comment on above: Performed By: #### L AC #### [place] [id number] Urea nitrogen [Mass/Vol] 42.0 mg/dL High 8.0-22.0 [facility] Comment on above: Performed By: #### L AC #### [place] [id number] CBCon 06-20-2025 Erythrocyte distribution width (RBC) [Ratio] 14.1 % Normal 11.5-15.5 [facility] Comment on above: Performed By: #### L AC #### [place] [id number] Hematocrit (Bld) [Volume fraction] 33.0 % Low 34.0-46.0 [facility] Comment on above: Performed By: #### L AC #### [place] [id number] Hgb 11.1 G/dL Low 12.0-16.0 [facility] Comment on above: Performed By: #### L AC #### [place] [id number] MCH (RBC) [Entitic mass] 29.3 pg Normal 27.0-33.0 [facility] Comment on above: Performed By: #### L AC #### [place] [id number] MCHC 33.6 G/dL Normal 32.0-36.0 [facility] Comment on above: Performed By: #### L AC #### [place] [id number] MCV (RBC) [Entitic vol] 87.2 fL Normal 80.0-99.0 [facility] Comment on above: Performed By: #### L AC #### [place] [id number] Platelet 290 10 3/mcL Normal 150-450 [facility] Comment on above: Performed By: #### L AC #### [address] [address] Platelet mean volume (Bld) [Entitic vol] 8.2 fL Normal 6.6-10.5 [facility] Comment on above: Performed By: #### L AC #### [address] [address] RBC 3.78 10 6/mcL Low 4.10-5.30 [facility] Comment on above: Performed By: #### L AC #### [address] [address] WBC 6.4 10 3/mcL Normal 4.5-10.8 [facility] Comment on above: Performed By: #### L AC #### [place] [id number] MGon 06-20-2025 Magnesium [Mass/Vol] 2.5 mg/dL High 1.6-2.4 [facility] Comment on above: Performed By: #### L AC #### [address] [address] .Auto Diffon 06-19-2025 Basophil, Absolute 0.0 10 3/mcL Normal 0.0-0.3 [facility] Comment on above: Performed By: #### C BC, ADIFF, ANEU, APTT, CMP, HFP, GFR #### [address] [address] Basophils/100 WBC (Bld) 0.1 % Normal 0.0-2.5 [facility] Comment on above: Performed By: #### C BC, ADIFF, ANEU, APTT, CMP, HFP, GFR #### [address] [address] Eosinophil, Absolute 0.0 10 3/mcL Normal 0.0-0.7 [facility] Comment on above: Performed By: #### C BC, ADIFF, ANEU, APTT, CMP, HFP, GFR #### [address] [address] Eosinophils/100 WBC (Bld) 0.0 % Normal 0.0-6.0 [facility] Comment on above: Performed By: #### C BC, ADIFF, ANEU, APTT, CMP, HFP, GFR #### [place] [id number] [address] [place] [address] Lymphocyte, Absolute 0.7 10 3/mcL Low 0.9-4.3 [facility] Comment on above: Performed By: #### C BC, ADIFF, ANEU, APTT, CMP, HFP, GFR #### [address] [address] Lymphocytes/100 WBC (Bld) 12.6 % Low 20.0-40.0 [facility] Comment on above: Performed By: #### C BC, ADIFF, ANEU, APTT, CMP, HFP, GFR #### [address] [address] Monocyte, Absolute 0.3 10 3/mcL Normal 0.1-1.4 [facility] Comment on above: Performed By: #### C BC, ADIFF, ANEU, APTT, CMP, HFP, GFR #### [address] [address] Monocytes/100 WBC (Bld) 5.8 % Normal 2.0-13.0 [facility] Comment on above: Performed By: #### C BC, ADIFF, ANEU, APTT, CMP, HFP, GFR #### [address] [address] Neutrophils/100 WBC (Bld) 81.5 % High 50.0-75.0 [facility] Comment on above: Performed By: #### C BC, ADIFF, ANEU, APTT, CMP, HFP, GFR #### [address] [address] .GFRon 06-19-2025 Estimated Glomerular Filtration Rate 52 ml/min/1.73sqm Normal [facility] Comment on above: Result Comment: [...] 15-29 CKD 5 Kidney failure <15 Note: ( live 11/26/2024) the eGFR calculation was updated to the 2020 CKD-EPI creatinine equation without a race factor to calculate the eGFR results. Performed By: #### C BC, ADIFF, ANEU, APTT, CMP, HFP, GFR #### [address] [address] Estimated Glomerular Filtration Rate 71 ml/min/1.73sqm Normal [facility] Comment on above: Result Comment: [...] 15-29 CKD 5 Kidney failure <15 Note: ( live 11/26/2024) the eGFR calculation was updated to the 2020 CKD-EPI creatinine equation without a race factor to calculate the eGFR results. Performed By: #### L AC #### [address] [address] .NEUABSon 06-19-2025 Neutrophil, Absolute 4.7 10 3/mcL Normal 2.3-8.1 [facility] Comment on above: Performed By: #### L AC #### [address] [address] APTTon 06-19-2025 aPTT Coag (Bld) [Time] 52.6 s High 25.0-35.0 [facility] Comment on above: Result Comment: For Heparin anticoagulation therapy, the recommended therapeutic range is: 54-77 seconds (APTT Correlation with Anti-Xa therapeutic range of 0.3-0.7 units/ml). PLEASE REFERENCE THE PHARMACY PROTOCOL FOR DOSING. Performed By: #### A PTT #### [address] [address] aPTT Coag (Bld) [Time] 73.6 s High 25.0-35.0 [facility] Comment on above: Result Comment: For Heparin anticoagulation therapy, the recommended therapeutic range is: 54-77 seconds (APTT Correlation with Anti-Xa therapeutic range of 0.3-0.7 units/ml). PLEASE REFERENCE THE PHARMACY PROTOCOL FOR DOSING. Performed By: #### A PTT #### [place] [id number] aPTT Coag (Bld) [Time] 65.1 s High 25.0-35.0 [facility] Comment on above: Result Comment: For Heparin anticoagulation therapy, the recommended therapeutic range is: 54-77 seconds (APTT Correlation with Anti-Xa therapeutic range of 0.3-0.7 units/ml). PLEASE REFERENCE THE PHARMACY PROTOCOL FOR DOSING. Performed By: #### L AC #### [address] [address] BMPon 06-19-2025 BUN/Creatinine Ratio 34.5 ratio High 10.0-22.0 [facility] Comment on above: Performed By: #### C BC, ADIFF, ANEU, APTT, CMP, HFP, GFR #### [address] [address] Calcium [Mass/Vol] 8.6 mg/dL Low 8.7-10.4 [facility] Comment on above: Performed By: #### C BC, ADIFF, ANEU, APTT, CMP, HFP, GFR #### [address] [address] Chloride [Moles/Vol] 99 mmol/L Normal 98-110 [facility] Comment on above: Performed By: #### C BC, ADIFF, ANEU, APTT, CMP, HFP, GFR #### [address] [address] CO2 [Moles/Vol] 29 mmol/L Normal 22-32 [facility] Comment on above: Performed By: #### C BC, ADIFF, ANEU, APTT, CMP, HFP, GFR #### [address] [address] Creatinine [Mass/Vol] 1.13 mg/dL Normal 0.50-1.20 [facility] Comment on above: Result Comment: Test ing performed on Chegg analyzer using enzymatic creatinine methodology. Performed By: #### C BC, ADIFF, ANEU, APTT, CMP, HFP, GFR #### [address] [address] Electrolyte Balance 12.0 mEq/L Normal 4.0-15.0 [facility] Comment on above: Performed By: #### C BC, ADIFF, ANEU, APTT, CMP, HFP, GFR #### [address] [address] Glucose [Mass/Vol] 156 mg/dL High 82-115 [facility] Comment on above: Performed By: #### C BC, ADIFF, ANEU, APTT, CMP, HFP, GFR #### [place] [id number] Potassium [Moles/Vol] 3.6 mmol/L Normal 3.5-5.0 [facility] Comment on above: Performed By: #### C BC, ADIFF, ANEU, APTT, CMP, HFP, GFR #### [address] [address] Sodium [Moles/Vol] 140 mmol/L Normal 136-145 [facility] Comment on above: Performed By: #### C BC, ADIFF, ANEU, APTT, CMP, HFP, GFR #### [address] [address] Urea nitrogen [Mass/Vol] 39.0 mg/dL High 8.0-22.0 [facility] Comment on above: Performed By: #### C BC, ADIFF, ANEU, APTT, CMP, HFP, GFR #### [address] [address] CBCon 06-19-2025 Erythrocyte distribution width (RBC) [Ratio] 14.3 % Normal 11.5-15.5 [facility] Comment on above: Performed By: #### C BC, ADIFF, ANEU, APTT, CMP, HFP, GFR #### [place] [address] Hematocrit (Bld) [Volume fraction] 33.7 % Low 34.0-46.0 [facility] Comment on above: Performed By: #### C BC, ADIFF, ANEU, APTT, CMP, HFP, GFR #### [place] [address] Hgb 11.3 G/dL Low 12.0-16.0 [facility] Comment on above: Performed By: #### C BC, ADIFF, ANEU, APTT, CMP, HFP, GFR #### [place] [address] MCH (RBC) [Entitic mass] 29.4 pg Normal 27.0-33.0 [facility] Comment on above: Performed By: #### C BC, ADIFF, ANEU, APTT, CMP, HFP, GFR #### [place] [address] MCHC 33.6 G/dL Normal 32.0-36.0 [facility] Comment on above: Performed By: #### C BC, ADIFF, ANEU, APTT, CMP, HFP, GFR #### [place] [address] MCV (RBC) [Entitic vol] 87.4 fL Normal 80.0-99.0 [facility] Comment on above: Performed By: #### C BC, ADIFF, ANEU, APTT, CMP, HFP, GFR #### [place] [address] Platelet 272 10 3/mcL Normal 150-450 [facility] Comment on above: Performed By: #### C BC, ADIFF, ANEU, APTT, CMP, HFP, GFR #### [place] [address] Platelet mean volume (Bld) [Entitic vol] 7.9 fL Normal 6.6-10.5 [facility] Comment on above: Performed By: #### C BC, ADIFF, ANEU, APTT, CMP, HFP, GFR #### [place] [address] RBC 3.86 10 6/mcL Low 4.10-5.30 [facility] Comment on above: Performed By: #### C BC, ADIFF, ANEU, APTT, CMP, HFP, GFR #### [place] [address] WBC 5.8 10 3/mcL Normal 4.5-10.8 [facility] Comment on above: Performed By: #### C BC, ADIFF, ANEU, APTT, CMP, HFP, GFR #### [place] [address] CMPon 06-19-2025 Albumin Level 2.9 G/dL Low 3.2-4.8 [facility] Comment on above: Performed By: #### L AC #### [place] [address] Albumin/Globulin [Mass ratio] 0.9 {ratio} Normal 0.9-1.6 [facility] Comment on above: Performed By: #### L AC #### [place] [address] ALP [Catalytic activity/Vol] 76 U/L Normal 38-126 [facility] Comment on above: Performed By: #### L AC #### [place] [address] ALT [Catalytic activity/Vol] 57 U/L High 10-49 [facility] Comment on above: Performed By: #### L AC #### [place] [address] AST [Catalytic activity/Vol] 36 U/L High 8-34 [facility] Comment on above: Performed By: #### L AC #### [place] [address] Bili Total 0.50 mg/dL Normal 0.20-1.20 [facility] Comment on above: Result Comment: Use of this assay is not recommended for patients undergoing treatment with eltrombopag due to the potential for falsely elevated results. Performed By: #### L AC #### [place] [id number] BUN/Creatinine Ratio 36.8 ratio High 10.0-22.0 [facility] Comment on above: Performed By: #### L AC #### [address] [address] Calcium [Mass/Vol] 8.8 mg/dL Normal 8.7-10.4 [facility] Comment on above: Performed By: #### L AC #### [address] [address] Chloride [Moles/Vol] 105 mmol/L Normal 98-110 [facility] Comment on above: Performed By: #### L AC #### [address] [address] CO2 [Moles/Vol] 32 mmol/L Normal 22-32 [facility] Comment on above: Performed By: #### L AC #### [place] [id number] Creatinine [Mass/Vol] 0.87 mg/dL Normal 0.50-1.20 [facility] Comment on above: Result Comment: Test ing performed on Chegg analyzer using enzymatic creatinine methodology. Performed By: #### L AC #### [address] [address] Electrolyte Balance 12.0 mEq/L Normal 4.0-15.0 [facility] Comment on above: Performed By: #### L AC #### [place] [id number] Globulin 3.2 G/dL Normal 2.5-4.2 [facility] Comment on above: Performed By: #### L AC #### [address] [address] Glucose [Mass/Vol] 139 mg/dL High 82-115 [facility] Comment on above: Performed By: #### L AC #### [place] [id number] Potassium [Moles/Vol] 3.7 mmol/L Normal 3.5-5.0 [facility] Comment on above: Performed By: #### L AC #### [address] [address] Sodium [Moles/Vol] 149 mmol/L High 136-145 [facility] Comment on above: Performed By: #### L AC #### [place] [id number] Total Protein 6.1 G/dL Normal 5.7-8.2 [facility] Comment on above: Performed By: #### L AC #### [place] [id number] Urea nitrogen [Mass/Vol] 32.0 mg/dL High 8.0-22.0 [facility] Comment on above: Performed By: #### L AC #### [address] [address] HFPon 06-19-2025 Bili Indirect 0.4 mg/dL Normal 0.1-10.0 [facility] Comment on above: Performed By: #### L AC #### [place] [address] Bili Direct 0.1 mg/dL Normal 0.0-0.4 [facility] Comment on above: Result Comment: Use of this assay is not recommended for patients undergoing treatment with eltrombopag due to the potential for falsely elevated results. Performed By: #### L AC #### [place] [address] LABORATORYOrdered By: SYSTEM SYSTEM on 06-19-2025 Bili [...] 2.9 G/dL Low 3.2 - 4.8 G/dL AH ADM SS Albumin/Globulin [Mass ratio] 0.9 {ratio} Normal 0.9 - 1.6 ratio AH ADM SS ALP [Catalytic activity/Vol] 76 U/L Normal 38 - 126 U/L AH ADM SS ALT No additional P-5'-P [Catalytic activity/Vol] 57 U/L High 10 - 49 U/L AH ADM SS AST [Catalytic activity/Vol] 36 U/L High 8 - 34 U/L AH ADM SS Bilirubin [Mass/Vol] 0.50 mg/dL Normal 0.20 - 1.20 mg/dL ADM SS Comment on above: Interpretive Data: U se of this assay is not recommended for patients undergoing treatment with eltrombopag due to the potential for falsely elevated results. Protein [Mass/Vol] 6.1 G/dL Normal 5.7 - 8.2 G/dL AH ADM SS No Panel InformationOrdered By: SYSTEM [...] No acute radiographic findings. Emphysema Interpreted by: Parish Aguirre Preliminary Report By: Parish Aguirre Electronically signed By Parish Aguirre Dictated Date: 06/19/2025 8:05:30 AM Prelim Date: 06/19/2025 8:06:42 AM Sign Date: 06/19/2025 8:06:42 AM Ordering Provider: ADRIANA Soto [facility] .Auto Diffon 06-18-2025 Basophil, Absolute 0.0 10 3/mcL Normal 0.0-0.3 [facility] Comment on above: Performed By: #### B G #### [facility] [address] [place] [address] Basophils/100 WBC (Bld) 0.1 % Normal 0.0-2.5 [facility] Comment on above: Performed By: #### B G #### [facility] [address] [place] [address] Eosinophil, Absolute 0.0 10 3/mcL Normal 0.0-0.7 [facility] Comment on above: Performed By: #### B G #### [facility] [address] [place] [address] Eosinophils/100 WBC (Bld) 0.0 % Normal 0.0-6.0 [facility] Comment on above: Performed By: #### B G #### [address] [address] Lymphocyte, Absolute 0.6 10 3/mcL Low 0.9-4.3 [facility] Comment on above: Performed By: #### B G #### [address] [address] Lymphocytes/100 WBC (Bld) 8.9 % Low 20.0-40.0 [facility] Comment on above: Performed By: #### B G #### [address] [address] Monocyte, Absolute 0.3 10 3/mcL Normal 0.1-1.4 [facility] Comment on above: Performed By: #### B G #### [address] [address] Monocytes/100 WBC (Bld) 4.4 % Normal 2.0-13.0 [place] [facility] Comment on above: Performed By: #### B G #### [address] [address] Neutrophils/100 WBC (Bld) 86.6 % High 50.0-75.0 [facility] Comment on above: Performed By: #### B G #### [address] [address] .GFRon 06-18-2025 Estimated Glomerular Filtration Rate 59 ml/min/1.73sqm Normal [facility] Comment on above: Result Comment: [...] results. Performed By: #### B G #### [place] [address] .NEUABSon 06-18-2025 Neutrophil, Absolute 6.0 10 3/mcL Normal 2.3-8.1 [facility] Comment on above: Performed By: #### B G #### [place] [address] APTTon 06-18-2025 aPTT Coag (Bld) [Time] 68.1 s High 25.0-35.0 [facility] Comment on above: Result Comment: For Heparin anticoagulation therapy, the recommended therapeutic range is: 54-77 seconds (APTT Correlation with Anti-Xa therapeutic range of 0.3-0.7 units/ml). PLEASE REFERENCE THE PHARMACY PROTOCOL FOR DOSING. Performed By: #### A PTT ####[place] [address] aPTT Coag (Bld) [Time] 40.6 s High 25.0-35.0 [facility] Comment on above: Result Comment: For Heparin anticoagulation therapy, the recommended therapeutic range is: 54-77 seconds (APTT Correlation with Anti-Xa therapeutic range of 0.3-0.7 units/ml). PLEASE REFERENCE THE PHARMACY PROTOCOL FOR DOSING. Performed By: #### D RUGS #### [place] [address] aPTT Coag (Bld) [Time] 51.7 s High 25.0-35.0 [facility] Comment on above: Result Comment: For Heparin anticoagulation therapy, the recommended therapeutic range is: 54-77 seconds (APTT Correlation with Anti-Xa therapeutic range of 0.3-0.7 units/ml). PLEASE REFERENCE THE PHARMACY PROTOCOL FOR DOSING. Performed By: #### L AC #### [address] [address] [facility] 06-18-2025 Base excess Calc (Bld) [Moles/Vol] 2.9 mmol/L Normal [facility] Comment on above: Performed By: #### B G #### [address] [address] CO2 [Moles/Vol] 27.8 mmol/L Normal 22.0-30.0 [facility] Comment on above: Performed By: #### B G #### [place] [id number] HCO3 (Bld) [Moles/Vol] 26.6 mmol/L Normal 21.0-29.0 [place] [facility] Comment on above: Performed By: #### B G #### [place] [id number] Oxygen (Bld) [Partial pressure] 98.2 mm[Hg] Normal 74.0-108.0 [facility] Comment on above: Performed By: #### B G #### [place] [id number] Oxygen saturation in Blood 97.1 % High 92.0-96.0 [facility] Comment on above: Performed By: #### B G #### [place] [id number] pCO2 37.4 mmHg Normal 32.0-46.0 [facility] Comment on above: Performed By: #### B G #### [place] [id number] pH (Bld) 7.470 [pH] High 7.380-7.460 [facility] Comment on above: Performed By: #### B G #### [address] [address] [facility] BUN/Creatinine Ratio 31.4 ratio High 10.0-22.0 [facility] Comment on above: Performed By: #### B G #### [place] [id number] Calcium [Mass/Vol] 8.8 mg/dL Normal 8.7-10.4 [facility] Comment on above: Performed By: #### B G #### [address] [address] Chloride [Moles/Vol] 105 mmol/L Normal 98-110 [facility] Comment on above: Performed By: #### B G #### [address] [address] CO2 [Moles/Vol] 31 mmol/L Normal 22-32 [facility] Comment on above: Performed By: #### B G #### [address] [address] Creatinine [Mass/Vol] 1.02 mg/dL Normal 0.50-1.20 [facility] Comment on above: Result Comment: Test ing performed on Chegg analyzer using enzymatic creatinine methodology. Performed By: #### B G #### [address] [address] Electrolyte Balance 7.0 mEq/L Normal 4.0-15.0 [facility] Comment on above: Performed By: #### B G #### [address] [address] Glucose [Mass/Vol] 145 mg/dL High 82-115 [facility] Comment on above: Performed By: #### B G #### [address] [address] Potassium [Moles/Vol] 3.6 mmol/L Normal 3.5-5.0 [facility] Comment on above: Performed By: #### B G #### [address] [address] Sodium [Moles/Vol] 143 mmol/L Normal 136-145 [facility] Comment on above: Performed By: #### B G #### [address] [address] Urea nitrogen [Mass/Vol] 32.0 mg/dL High 8.0-22.0 [facility] Comment on above: Performed By: #### B G #### [address] [address] CAIONon 06-18-2025 Calcium Ionized 1.09 mmol/L Low 1.12-1.32 [facility] Comment on above: Performed By: #### B G #### [address] [address] CBCon 06-18-2025 Erythrocyte distribution width (RBC) [Ratio] 14.4 % Normal 11.5-15.5 [facility] Comment on above: Performed By: #### B G #### [place] [id number] Hematocrit (Bld) [Volume fraction] 33.0 % Low 34.0-46.0 [facility] Comment on above: Performed By: #### B G #### [place] [address] Hgb 11.0 G/dL Low 12.0-16.0 [facility] Comment on above: Performed By: #### B G #### [place] [address] MCH (RBC) [Entitic mass] 29.4 pg Normal 27.0-33.0 [facility] Comment on above: Performed By: #### B G #### [place] [address] MCHC 33.4 G/dL Normal 32.0-36.0 [facility] Comment on above: Performed By: #### B G #### [place] [id number] MCV (RBC) [Entitic vol] 88.0 fL Normal 80.0-99.0 [place] Comment on above: Performed By: #### B G #### [place] [id number] Platelet 268 10 3/mcL Normal 150-450 [facility] Comment on above: Performed By: #### B G #### [place] [id number] Platelet mean volume (Bld) [Entitic vol] 7.7 fL Normal 6.6-10.5 [facility] Comment on above: Performed By: #### B G #### [facility] [address] [place] [address] RBC 3.75 10 6/mcL Low 4.10-5.30 [facility] Comment on above: Performed By: #### B G #### [facility] [address] [place] [address] WBC 6.9 10 3/mcL Normal 4.5-10.8 [facility] Comment on above: Performed By: #### B G #### [facility] [address] [place] [address] LABORATORYOrdered By: Shelbie freitas on 06-18-2025 Blood Glucose Testing Reason Routine (06/18/25 11:16 PM) [facility] Glucose [Mass/Vol] 137 mg/dL High 82 - 115 mg/dL [facility] Blood Glucose Testing Reason Routine (06/18/25 7:15 PM) [facility] Glucose [Mass/Vol] 151 mg/dL High 82 - 115 mg/dL [facility] Blood Glucose Testing Reason Routine (06/18/25 4:00 PM) [facility] LABORATORYOrdered By: Rohit sarabia on 06-18-2025 CO2 [Moles/Vol] 27.8 mmol/L Normal 22.0 - 30.0 mmol/L [facility] HCO3 (Bld) [Moles/Vol] 26.6 mmol/L Normal 21.0 - 29.0 mmol/L [facility] Oxygen (Bld) [Partial pressure] 98.2 mm[Hg] Normal 74.0 - 108.0 mm Hg [facility] pCO2 37.4 mm[Hg] Normal 32.0 - 46.0 mm Hg [facility] pH (Bld) 7.470 [pH] High 7.380 - 7.460 [facility] Sodium [Moles/Vol] 2.9 mmol/L Invalid Interpretation Code [facility] Calcium Ionized 1.09 mmol/L Low 1.12 - 1.32 mmol/L AH [facility] MGon 06-18-2025 Magnesium [Mass/Vol] 2.5 mg/dL High 1.6-2.4 [facility] Comment on above: Performed By: #### B G #### [address] [address] XR CHEST 1 VIEWon 06-18-2025 XR CHEST [...] 06/18/2025 7:12:41 AM Ordering Provider: ARIAS Soto [facility] .Auto Diffon 06-17-2025 Basophil, Absolute 0.1 10 3/mcL Normal 0.0-0.3 [facility] Comment on above: Performed By: #### L AC #### [address] [address] Basophils/100 WBC (Bld) 0.9 % Normal 0.0-2.5 [facility] Comment on above: Performed By: #### L AC #### [address] [address] Eosinophil, Absolute 0.1 10 3/mcL Normal 0.0-0.7 [facility] Comment on above: Performed By: #### L AC #### [address] [address] Eosinophils/100 WBC (Bld) 0.8 % Normal 0.0-6.0 [facility] Comment on above: Performed By: #### L AC #### [facility] [address] [place] [address] Lymphocyte, Absolute 1.6 10 3/mcL Normal 0.9-4.3 [facility] Comment on above: Performed By: #### L AC #### [facility] [address] [place] [address] Lymphocytes/100 WBC (Bld) 17.8 % Low 20.0-40.0 [facility] Comment on above: Performed By: #### L AC #### [facility] [address] [place] [phone] Monocyte, Absolute 0.7 10 3/mcL Normal 0.1-1.4 [facility] Comment on above: Performed By: #### L AC #### [address] [address] Monocytes/100 WBC (Bld) 8.1 % Normal 2.0-13.0 [place] [facility] Comment on above: Performed By: #### L AC #### [address] [address] Neutrophils/100 WBC (Bld) 72.4 % Normal 50.0-75.0 [facility] Comment on above: Performed By: #### L AC #### [address] [id number] .GFRon 06-17-2025 Estimated Glomerular Filtration Rate 57 ml/min/1.73sqm Normal [facility] Comment on above: Result Comment: [...] results. Performed By: #### L AC #### [address] [address] .NEUABSon 06-17-2025 Neutrophil, Absolute 6.5 10 3/mcL Normal 2.3-8.1 [facility] Comment on above: Performed By: #### L AC #### [place] [id number] APTTon 06-17-2025 aPTT Coag (Bld) [Time] 46.8 s High 25.0-35.0 [facility] Comment on above: Result Comment: For Heparin anticoagulation therapy, the recommended therapeutic range is: 54-77 seconds (APTT Correlation with Anti-Xa therapeutic range of 0.3-0.7 units/ml). PLEASE REFERENCE THE PHARMACY PROTOCOL FOR DOSING. Performed By: #### A PTT #### [place] [address] aPTT Coag (Bld) [Time] 40.2 s High 25.0-35.0 [facility] Comment on above: Result Comment: For Heparin anticoagulation therapy, the recommended therapeutic range is: 54-77 seconds (APTT Correlation with Anti-Xa therapeutic range of 0.3-0.7 units/ml). PLEASE REFERENCE THE PHARMACY PROTOCOL FOR DOSING. Performed By: #### A PTT #### [place] [address] aPTT Coag (Bld) [Time] 54.3 s High 25.0-35.0 [facility] Comment on above: Result Comment: For Heparin anticoagulation therapy, the recommended therapeutic range is: 54-77 seconds (APTT Correlation with Anti-Xa therapeutic range of 0.3-0.7 units/ml). PLEASE REFERENCE THE PHARMACY PROTOCOL FOR DOSING. Performed By: #### A PTT ####[place] [address] aPTT Coag (Bld) [Time] 71.7 s High 25.0-35.0 [facility] Comment on above: Result Comment: For Heparin anticoagulation therapy, the recommended therapeutic range is: 54-77 seconds (APTT Correlation with Anti-Xa therapeutic range of 0.3-0.7 units/ml). PLEASE REFERENCE THE PHARMACY PROTOCOL FOR DOSING. Performed By: #### A PTT ####[address] [address] BGon 06-17-2025 Base excess Calc (Bld) [Moles/Vol] 1.3 mmol/L Normal [facility] Comment on above: Performed By: #### L AC #### [place] [id number] CO2 [Moles/Vol] 26.5 mmol/L Normal 22.0-30.0 [facility] Comment on above: Performed By: #### L AC #### [address] [address] HCO3 (Bld) [Moles/Vol] 25.3 mmol/L Normal 21.0-29.0 [place] [facility] Comment on above: Performed By: #### L AC #### [place] [id number] Oxygen (Bld) [Partial pressure] 104.6 mm[Hg] Normal 74.0-108.0 [facility] Comment on above: Performed By: #### L AC #### [place] [id number] Oxygen saturation in Blood 97.7 % High 92.0-96.0 [facility] Comment on above: Performed By: #### L AC #### [place] [id number] pCO2 38.0 mmHg Normal 32.0-46.0 [facility] Comment on above: Performed By: #### L AC #### [place] [id number] pH (Bld) 7.442 [pH] Normal 7.380-7.460 [facility] Comment on above: Performed By: #### L AC #### [address] [address] CBCon 06-17-2025 Erythrocyte distribution width (RBC) [Ratio] 14.0 % Normal 11.5-15.5 [facility] Comment on above: Performed By: #### L AC #### [place] [address] Hematocrit (Bld) [Volume fraction] 32.8 % Low 34.0-46.0 [facility] Comment on above: Performed By: #### L AC #### [place] [address] Hgb 10.9 G/dL Low 12.0-16.0 [facility] Comment on above: Performed By: #### L AC #### [place] [address] MCH (RBC) [Entitic mass] 29.4 pg Normal 27.0-33.0 [facility] Comment on above: Performed By: #### L AC #### [place] [address] MCHC 33.2 G/dL Normal 32.0-36.0 [facility] Comment on above: Performed By: #### L AC #### [place] [address] MCV (RBC) [Entitic vol] 88.5 fL Normal 80.0-99.0 [place] [facility] Comment on above: Performed By: #### L AC #### [place] [address] Platelet 240 10 3/mcL Normal 150-450 [facility] Comment on above: Performed By: #### L AC #### [place] [address] Platelet mean volume (Bld) [Entitic vol] 7.5 fL Normal 6.6-10.5 [facility] Comment on above: Performed By: #### L AC #### [place] [address] RBC 3.71 10 6/mcL Low 4.10-5.30 [facility] Comment on above: Performed By: #### L AC #### [place] [id number] WBC 9.0 10 3/mcL Normal 4.5-10.8 [facility] Comment on above: Performed By: #### L AC #### [place] [address] [facility] 06-17-2025 Albumin Level 2.8 G/dL Low 3.2-4.8 [facility] Comment on above: Performed By: #### L AC #### [place] [id number] Albumin/Globulin [Mass ratio] 1.0 {ratio} Normal 0.9-1.6 [facility] Comment on above: Performed By: #### L AC #### [place] [address] ALP [Catalytic activity/Vol] 90 U/L Normal 38-126 [facility] Comment on above: Performed By: #### L AC #### [place] [id number] ALT [Catalytic activity/Vol] 85 U/L High 10-49 [facility] Comment on above: Performed By: #### L AC #### [place] [id number] AST [Catalytic activity/Vol] 97 U/L High 8-34 [facility] Comment on above: Performed By: #### L AC #### [place] [id number] Bili Total 0.40 mg/dL Normal 0.20-1.20 [facility] Comment on above: Result Comment: Use of this assay is not recommended for patients undergoing treatment with eltrombopag due to the potential for falsely elevated results. Performed By: #### L AC #### [place] [address] BUN/Creatinine Ratio 28.6 ratio High 10.0-22.0 [facility] Comment on above: Performed By: #### L AC #### [place] [id number] Calcium [Mass/Vol] 8.5 mg/dL Low 8.7-10.4 [facility] Comment on above: Performed By: #### L AC #### [place] [id number] Chloride [Moles/Vol] 103 mmol/L Normal 98-110 [facility] Comment on above: Performed By: #### L AC #### [address] [address] CO2 [Moles/Vol] 28 mmol/L Normal 22-32 [facility] Comment on above: Performed By: #### L AC #### [address] [address] Creatinine [Mass/Vol] 1.05 mg/dL Normal 0.50-1.20 [facility] Comment on above: Result Comment: Test ing performed on Chegg analyzer using enzymatic creatinine methodology. Performed By: #### L AC #### [address] [address] Electrolyte Balance 8.0 mEq/L Normal 4.0-15.0 [facility] Comment on above: Performed By: #### L AC #### [address] [address] Globulin 2.8 G/dL Normal 2.5-4.2 [facility] Comment on above: Performed By: #### L AC #### [address] [address] Glucose [Mass/Vol] 106 mg/dL Normal 82-115 [facility] Comment on above: Performed By: #### L AC #### [address] [address] Potassium [Moles/Vol] 4.0 mmol/L Normal 3.5-5.0 [facility] Comment on above: Performed By: #### L AC #### [address] [address] Sodium [Moles/Vol] 139 mmol/L Normal 136-145 [facility] Comment on above: Performed By: #### L AC #### [address] [address] Total Protein 5.6 G/dL Low 5.7-8.2 [facility] Comment on above: Performed By: #### L AC #### [address] [address] Urea nitrogen [Mass/Vol] 30.0 mg/dL High 8.0-22.0 [facility] Comment on above: Performed By: #### L AC #### [place] [address] LABORATORYOrdered By: SYSTEM SYSTEM on 06-17-2025 Troponin I.cardiac DL <= 0.01 ng/mL [Mass/Vol] 713 ng/L High 0 - 34 ng/L ADM SS Comment on above: Interpretive Data: High Sensitive Troponin I Reference Ranges: Female: 0-34 ng/L Male: 0-54 ng/L Testing performed on LocalSort IM analyzer using direct chemiluminescent technology. LABORATORYOrdered By: Gabriela Lua on 06-17-2025 CO2 [Moles/Vol] 26.5 mmol/L Normal 22.0 - 30.0 mmol/L AH [...] (Bld) 7.442 [pH] Normal 7.380 - 7.460 Main Rapid Comm SS Sodium [Moles/Vol] 1.3 mmol/L Invalid Interpretation Code AH Main Rapid Comm SS MGon 06-17-2025 Magnesium [Mass/Vol] 2.1 mg/dL Normal 1.6-2.4 [facility] Comment on above: Performed By: #### L AC #### [place] [address] TROPHSon 06-17-2025 High Sensitivity Troponin I 713 ng/L High 0-34 [facility] Comment on above: Result Comment: High Sensitive Troponin I Reference Ranges: Female: 0-34 ng/L Male: 0-54 ng/L Testing performed on RUSBASE analyzer using direct chemiluminescent technology. Performed By: #### C BC, ADIFF, ANEU, APTT, CMP, HFP, GFR #### [place] [address] XR CHEST 1 VIEWon 06-17-2025 XR CHEST [...] 06/17/2025 6:58:17 AM Ordering Provider: DEVIN Soto [facility] .Auto Diffon 06-16-2025 Basophil, Absolute 0.0 10 3/mcL Normal 0.0-0.3 [facility] Comment on above: Performed By: #### L AC #### [address] [address] Basophils/100 WBC (Bld) 0.2 % Normal 0.0-2.5 [place] [facility] Comment on above: Performed By: #### L AC #### [address] [address] Eosinophil, Absolute 0.0 10 3/mcL Normal 0.0-0.7 [facility] Comment on above: Performed By: #### L AC #### [address] [address] Eosinophils/100 WBC (Bld) 0.0 % Normal 0.0-6.0 [facility] Comment on above: Performed By: #### L AC #### [address] [address] Lymphocyte, Absolute 0.8 10 3/mcL Low 0.9-4.3 [facility] Comment on above: Performed By: #### L AC #### [address] [address] Lymphocytes/100 WBC (Bld) 6.4 % Low 20.0-40.0 [facility] Comment on above: Performed By: #### L AC #### [address] [address] Monocyte, Absolute 0.5 10 3/mcL Normal 0.1-1.4 [facility] Comment on above: Performed By: #### L AC #### [address] [address] Monocytes/100 WBC (Bld) 4.3 % Normal 2.0-13.0 [place] [facility] Comment on above: Performed By: #### L AC #### [address] [address] Neutrophils/100 WBC (Bld) 89.1 % High 50.0-75.0 [facility] Comment on above: Performed By: #### L AC #### [address] [address] Basophil, Absolute 0.0 10 3/mcL Normal 0.0-0.3 [facility] Comment on above: Performed By: #### L AC #### [address] [address] Basophils/100 WBC (Bld) 0.1 % Normal 0.0-2.5 [place] [facility] Comment on above: Performed By: #### L AC #### [address] [address] Eosinophil, Absolute 0.0 10 3/mcL Normal 0.0-0.7 [facility] Comment on above: Performed By: #### L AC #### [address] [address] Eosinophils/100 WBC (Bld) 0.0 % Normal 0.0-6.0 [facility] Comment on above: Performed By: #### L AC #### [address] [address] Lymphocyte, Absolute 0.4 10 3/mcL Low 0.9-4.3 [facility] Comment on above: Performed By: #### L AC #### [address] [address] Lymphocytes/100 WBC (Bld) 1.9 % Low 20.0-40.0 [facility] Comment on above: Performed By: #### L AC #### [place] [id number] [address] [place] [address] Monocyte, Absolute 0.5 10 3/mcL Normal 0.1-1.4 [facility] Comment on above: Performed By: #### L AC #### [address] [address] Monocytes/100 WBC (Bld) 2.4 % Normal 2.0-13.0 [place] [facility] Comment on above: Performed By: #### L AC #### [address] [address] Neutrophils/100 WBC (Bld) 95.6 % High 50.0-75.0 [facility] Comment on above: Performed By: #### L AC #### [address] [address] .GFRon 06-16-2025 Estimated Glomerular Filtration Rate 59 ml/min/1.73sqm [facility] Comment on above: Result Comment: [...] results. Performed By: #### L AC #### [address] [address] .NEUABSon 06-16-2025 Neutrophil, Absolute 10.8 10 3/mcL High 2.3-8.1 [place] [facility] Comment on above: Performed By: #### L AC #### [address] [address] Neutrophil, Absolute 19.3 10 3/mcL High 2.3-8.1 A [facility] Comment on above: Performed By: #### L AC #### [address] [address] APTTon 06-16-2025 aPTT Coag (Bld) [Time] 33.8 s Normal 25.0-35.0 [facility] Comment on above: Result Comment: For Heparin anticoagulation therapy, the recommended therapeutic range is: 54-77 seconds (APTT Correlation with Anti-Xa therapeutic range of 0.3-0.7 units/ml). PLEASE REFERENCE THE PHARMACY PROTOCOL FOR DOSING. Performed By: #### C BC, ADIFF, ANEU, APTT, CMP, HFP, GFR #### [address] [address] aPTT Coag (Bld) [Time] 29.1 s Normal 25.4 - 38.4 [facility] Comment on above: Performed By: #### 2 [address] ####[facility],[address] [place] [address] BGon 06-16-2025 Base excess Calc (Bld) [Moles/Vol] -1.1000 mmol/L Normal [facility] Comment on above: Performed By: #### D RUGS #### [address] [address] CO2 [Moles/Vol] 25.6 mmol/L Normal 22.0-30.0 [facility] Comment on above: Performed By: #### D RUGS #### [address] [address] HCO3 (Bld) [Moles/Vol] 24.3 mmol/L Normal 21.0-29.0 A [facility] Comment on above: Performed By: #### D RUGS #### [address] [address] Oxygen (Bld) [Partial pressure] 97.9 mm[Hg] Normal 74.0-108.0 [facility] Comment on above: Performed By: #### D RUGS #### [place] [address] Oxygen saturation in Blood 97.1 % High 92.0-96.0 [facility] Comment on above: Performed By: #### D KAYLA #### [place] [address] pCO2 43.4 mmHg Normal 32.0-46.0 [facility] Comment on above: Performed By: #### D RUGS #### [place] [address] pH (Bld) 7.366 [pH] Low 7.380-7.460 [facility] Comment on above: Performed By: #### D KAYLA #### [place] [address] CBCon 06-16-2025 Erythrocyte distribution width (RBC) [Ratio] 13.9 % Normal 11.5-15.5 [facility] Comment on above: Performed By: #### L AC #### [place] [address] Hematocrit (Bld) [Volume fraction] 34.3 % Normal 34.0-46.0 [facility] Comment on above: Performed By: #### L AC #### [place] [address] Hgb 11.3 G/dL Low 12.0-16.0 [facility] Comment on above: Performed By: #### L AC #### [place] [address] MCH (RBC) [Entitic mass] 29.1 pg Normal 27.0-33.0 [facility] Comment on above: Performed By: #### L AC #### [place] [id number] MCHC 33.0 G/dL Normal 32.0-36.0 [facility] Comment on above: Performed By: #### L AC #### [place] [address] MCV (RBC) [Entitic vol] 88.4 fL Normal 80.0-99.0 [place] [facility] Comment on above: Performed By: #### L AC #### [place] [id number] Platelet 263 10 3/mcL Normal 150-450 [facility] Comment on above: Performed By: #### L AC #### [place] [id number] Platelet mean volume (Bld) [Entitic vol] 7.4 fL Normal 6.6-10.5 [facility] Comment on above: Performed By: #### L AC #### [place] [address] RBC 3.88 10 6/mcL Low 4.10-5.30 [facility] Comment on above: Performed By: #### L AC #### [place] [id number] WBC 12.1 10 3/mcL High 4.5-10.8 [facility] Comment on above: Performed By: #### L AC #### [place] [address] Erythrocyte distribution width (RBC) [Ratio] 14.4 % Normal 11.5-15.5 [facility] Comment on above: Performed By: #### L AC #### [place] [address] Hematocrit (Bld) [Volume fraction] 38.4 % Normal 34.0-46.0 [facility] Comment on above: Performed By: #### L AC #### [place] [address] Hgb 12.4 G/dL Normal 12.0-16.0 [facility] Comment on above: Performed By: #### L AC #### [place] [id number] MCH (RBC) [Entitic mass] 28.7 pg Normal 27.0-33.0 [facility] Comment on above: Performed By: #### L AC #### [place] [address] MCHC 32.3 G/dL Normal 32.0-36.0 [facility] Comment on above: Performed By: #### L AC #### [place] [address] MCV (RBC) [Entitic vol] 88.8 fL Normal 80.0-99.0 [place] [facility] Comment on above: Performed By: #### L AC #### [place] [address] Platelet 297 10 3/mcL Normal 150-450 [facility] Comment on above: Performed By: #### L AC #### [place] [address] Platelet mean volume (Bld) [Entitic vol] 7.5 fL Normal 6.6-10.5 [facility] Comment on above: Performed By: #### L AC #### [place] [address] RBC 4.32 10 6/mcL Normal 4.10-5.30 [facility] Comment on above: Performed By: #### L AC #### [place] [address] WBC 20.2 10 3/mcL High 4.5-10.8 [facility] Comment on above: Performed By: #### L AC #### [place] [address] CBC + DIFFon 06-16-2025 Baso # 0.04 x10EE3/UL Normal 0.00 - 0.10 [facility] Comment on above: Performed By: #### 2 45233 ####[facility],[address] [place] [address] Basophils/100 WBC (Bld) 0.3 % Normal 0.0 - 2.0 [facility] Comment on above: Performed By: #### 2 [address] ####[facility],[address] [place] [address] CBC + DIFF Normal [facility] Comment on above: Result Comment: CBC- COMPLETE BLOOD COUNT Performed By: #### 2 52506 ####[facility],[address] [place] [address] EO # 0.19 x10EE3/UL Normal 0.00 - 0.50 [facility] Comment on above: Performed By: #### 2 32355 ####[facility],[address] [place] [address] Eosinophils/100 WBC (Bld) 1.6 % Normal 0.0 - 7.0 [facility] Comment on above: Performed By: #### 2 75071 ####[facility],[address] [place] [address] Erythrocyte distribution width (RBC) [Ratio] 13.9 % Normal 12.0 - 15.6 [facility] Comment on above: Performed By: #### 2 14304 ####[facility],[address] [place] [address] Hematocrit (Bld) [Volume fraction] 39.0 % Normal 34.0 - 46.0 [facility] Comment on above: Performed By: #### 2 05553 ####[facility],[address] [place] [address] Hemoglobin (Bld) [Mass/Vol] 13.5 g/dL Normal 12.0 - 16.0 [facility] Comment on above: Performed By: #### 2 57819 ####[facility],[address] [place] [address] Lymph # 4.60 x10EE3/UL High 0.80 - 2.80 [facility] Comment on above: Performed By: #### 2 13990 ####[facility],[address] [place] [address] Lymphocytes/100 WBC (Bld) 38.1 % Normal 20.0 - 45.0 [facility] Comment on above: Performed By: #### 2 72904 ####[facility],[address] [place], [place] [id number] MANUAL DIFF N/A Normal [facility] Comment on above: Performed By: #### 2 92529 ####[facility],[address] [place] [address] MCH (RBC) [Entitic mass] 31 pg Normal 27 - 33 [facility] Comment on above: Performed By: #### 2 66044 ####[facility],[address] [place] [address] MCHC 35 X10 3 Normal 32 - 36 [facility] Comment on above: Performed By: #### 2 45299 ####[facility],[address] [place] [address] MCV (RBC) [Entitic vol] 91 fL Normal 80 - 99 [facility] Comment on above: Performed By: #### 2 52243 ####[facility],[address] [place] [address] [place] # 0.64 x10EE3/UL Normal 0.20 - 1.00 [facility] Comment on above: Performed By: #### 2 76868 ####[facility],[address] [place] [address] MONOS % 5.3 % Normal 0.0 - 10.0 [facility] Comment on above: Performed By: #### 2 11743 ####[facility],[address] [place], [place] [id number] Morphology Dandy (Bld) [Interp] N/A Normal [facility] Comment on above: Performed By: #### 2 82168 ####[facility],[address] [place] [address] Neut # 6.61 x10EE3/UL Normal 1.50 - 7.10 [facility] Comment on above: Performed By: #### 2 25497 ####[facility],[address] [place] [address] Neutrophils/100 WBC (Bld) 54.7 % Normal 46.0 - 76.0 [facility] Comment on above: Performed By: #### 2 35041 ####[facility],[address] [place] [address] PLATELET 365 x10EE3/UL Normal 150 - 450 [facility] Comment on above: Performed By: #### 2 90764 ####[facility],[address] [place] [address] Platelet mean volume (Bld) [Entitic vol] 7.4 fL Normal 6.6 - 10.5 [facility] Comment on above: Result Comment: AUTO MATED DIFFERENTIAL Performed By: #### 2 56276 ####[facility],[address] [place] [address] RBC 4.31 x 10EE6/UL Normal 4.10 - 5.30 [facility] Comment on above: Performed By: #### 2 85434 ####[facility],[address] [place] [address] WBC 12.1 x 10EE3/UL High 4.5 - 10.8 [facility] Comment on above: Performed By: #### 2 69827 ####[facility],[address] [place] [address] CHEST 1 VIEWon 06-16-2025 CHEST 1 VIEW Normal [facility] CHEST 1 VIEW (PICC/ET PLACEM ENTon 06-16-2025 CHEST 1 VIEW (PICC/ET PLACEMENT Normal [facility] CMPon 06-16-2025 Albumin Level 3.5 G/dL Normal 3.2-4.8 [facility] Comment on above: Performed By: #### L AC #### [facility] [address] [place] [address] Albumin/Globulin [Mass ratio] 1.0 {ratio} Normal 0.9-1.6 [facility] Comment on above: Performed By: #### L AC #### [facility] [address] [place] [address] ALP [Catalytic activity/Vol] 135 U/L High 38-126 [facility] Comment on above: Performed By: #### L AC #### [address] [address] ALT [Catalytic activity/Vol] 133 U/L High 10-49 [facility] Comment on above: Performed By: #### L AC #### [address] [address] AST [Catalytic activity/Vol] 203 U/L High 8-34 [facility] Comment on above: Performed By: #### L AC #### [address] [address] Bili Total 0.30 mg/dL Normal 0.20-1.20 [facility] Comment on above: Result Comment: Use of this assay is not recommended for patients undergoing treatment with eltrombopag due to the potential for falsely elevated results. Performed By: #### L AC #### [address] [address] BUN/Creatinine Ratio 24.5 ratio High 10.0-22.0 [facility] Comment on above: Performed By: #### L AC #### [address] [address] Calcium [Mass/Vol] 9.2 mg/dL Normal 8.7-10.4 [facility] Comment on above: Performed By: #### L AC #### [address] [address] Chloride [Moles/Vol] 100 mmol/L Normal 98-110 [facility] Comment on above: Performed By: #### L AC #### [address] [address] CO2 [Moles/Vol] 26 mmol/L Normal 22-32 [facility] Comment on above: Performed By: #### L AC #### [address] [address] Creatinine [Mass/Vol] 1.02 mg/dL Normal 0.50-1.20 [facility] Comment on above: Result Comment: Test ing performed on Chegg analyzer using enzymatic creatinine methodology. Performed By: #### L AC #### [address] [address] Electrolyte Balance 13.0 mEq/L Normal 4.0-15.0 [facility] Comment on above: Performed By: #### L AC #### [address] [address] Globulin 3.6 G/dL Normal 2.5-4.2 [facility] Comment on above: Performed By: #### L AC #### [address] [address] Glucose [Mass/Vol] 135 mg/dL High 82-115 [facility] Comment on above: Performed By: #### L AC #### [address] [address] Potassium [Moles/Vol] 3.2 mmol/L Low 3.5-5.0 [facility] Comment on above: Performed By: #### L AC #### [address] [address] Sodium [Moles/Vol] 139 mmol/L Normal 136-145 [facility] Comment on above: Performed By: #### L AC #### [address] [address] Total Protein 7.1 G/dL Normal 5.7-8.2 [facility] Comment on above: Performed By: #### L AC #### [address] [address] Urea nitrogen [Mass/Vol] 25.0 mg/dL High 8.0-22.0 [facility] Comment on above: Performed By: #### L AC #### [address] [address] CMP with eGFRon 06-16-2025 AGE 70 years Normal [facility] Comment on above: Performed By: #### 2 89605 ####[facility],[address] [place] [address] Albumin [Mass/Vol] 3.2 g/dL Low 3.4 - 5.0 [facility] Comment on above: Performed By: #### 2 22217 ####[facility],[address] [place] [address] Albumin/Globulin [Mass ratio] 0.7 {ratio} Low 0.9 - 1.6 [facility] Comment on above: Performed By: #### 2 09644 ####[facility],[address] [place] [address] ALK PHOS 136 U/L High 46 - 116 [facility] Comment on above: Performed By: #### 2 71731 ####[facility],[address] [place] [address] ALT [Catalytic activity/Vol] 104 U/L High 16 - 63 [facility] Comment on above: Performed By: #### 2 81977 ####[facility],[address] [place] [address] Anion gap [Moles/Vol] 17 mmol/L Normal 10 - 20 [facility] Comment on above: Performed By: #### 2 16135 ####[facility],[address] [place] [address] AST [Catalytic activity/Vol] 145 U/L High 13 - 39 [facility] Comment on above: Performed By: #### 2 86815 ####[facility],[address] [place] [address] 39843 B/C RATIO 17 ratio Normal 0 - 30 [facility] Comment on above: Performed By: #### 2 42799 ####[facility],[address] [place] [address] 60069 Bilirubin [Mass/Vol] 0.7 mg/dL Normal 0.2 - 1.0 [facility] Comment on above: Performed By: #### 2 54254 ####[facility],[address] [place] [address] 36877 Calcium [Mass/Vol] 9.0 mg/dL Normal 8.5 - 10.1 [facility] Comment on above: Performed By: #### 2 91268 ####[facility],[address] [place] [address] 09738 Chloride [Moles/Vol] 95 mmol/L Low 98 - 107 [facility] Comment on above: Performed By: #### 2 60290 ####[facility],[address] [place] [address] 68078 CMP with eGFR Normal [facility] Comment on above: Result Comment: COMP REHENSIVE METABOLIC PANEL Performed By: #### 2 60898 ####[facility],[address] [place] [address] 81166 CO2 [Moles/Vol] 28.5 mmol/L Normal 21.0 - 32.0 [facility] Comment on above: Performed By: #### 2 30001 ####[facility],[address] [place] [address] Creatinine [Mass/Vol] 1.55 mg/dL High 0.55 - 1.02 [facility] Comment on above: Performed By: #### 2 23148 ####[facility],[address] [place], [place] [id number] eGFR 33 ML/MINUTE Low 60 - 999 [facility] Comment on above: Performed By: #### 2 58997 ####[facility],[address] [place], [place] [id number] eGFR(AA) 40 ML/MINUTE Low 60 - 999 [facility] Comment on above: Result Comment: ACCO RDING TO THE NATIONAL KIDNEY DISEASE EDUCATION PROGRAM(NKDE), A NORMAL eGFRIS A VALUE GREATER THAN OR EQUAL TO 60 ML/MIN/1.73 SQ METERS.CHRONIC KIDNEY DISEASE: <60mL/MIN/1.73 SQ METERSKIDNEY FAILURE: <15mL/MIN/1.73 SQ METERSTHIS TEST SHOULD ONLY BE USED FOR PATIENTS 18 YEARS OF AGE AND OLDER. Performed By: #### 2 49894 ####[facility],[address] [place] [address] 96788 Globulin (S) [Mass/Vol] 4.3 g/dL High 1.5 - 3.8 [facility] Comment on above: Performed By: #### 2 92110 ####[facility],[address] [place] [address] 49622 Glucose [Mass/Vol] 266 mg/dL High 74 - 106 [facility] Comment on above: Performed By: #### 2 37465 ####[facility],[address] [place] [address] 78838 Potassium [Moles/Vol] 4.0 mmol/L Normal 3.5 - 5.1 [facility] Comment on above: Performed By: #### 2 30958 ####[facility],[address] [place] [address] 52250 Protein [Mass/Vol] 7.5 g/dL Normal 6.4 - 8.2 [facility] Comment on above: Performed By: #### 2 11315 ####[facility],[address] [place] [address] 38870 Sodium [Moles/Vol] 136 mmol/L Normal 136 - 145 [facility] Comment on above: Performed By: #### 2 97105 ####[facility],[address] [place] [address] 26030 Urea nitrogen [Mass/Vol] 27 mg/dL High 7 - 18 [facility] Comment on above: Performed By: #### 2 17085 ####[facility],[address] [place] [address] 33585 CULTURE BLOOD [MARIA TERESA]on Microscopic examination of blood, culture CULTURE BLOOD [MARIA TERESA] _BLOOD CULTURE_ GO TO CPSI REPORTS AND ATTACHMENTS FOR SCANNED REPORT 06/24/25.56.DNP.COMP LETE Normal [facility] Comment on above: Performed By: #### 2 91434 ####[facility],[address] [place] [address] 53908 Microscopic examination of blood, culture CULTURE BLOOD [MARIA TERESA] _BLOOD CULTURE_ GO TO CPSI REPORTS AND ATTACHMENTS FOR SCANNED REPORT 06/24/25.55.DNP.COMP LETE Normal [facility] Comment on above: Performed By: #### 2 15548 ####[facility],[address] [place] [address] CVFLURVon 06-16-2025 FLU A PCR Negative Normal Negative [facility] Comment on above: Result Comment: Note s 1990 Performed By: #### C VFLURV ####[place] [address] FLU B PCR Negative Normal Negative [facility] Comment on above: Result Comment: Note s 1990 Performed By: #### C VFLURV ####[place] [address] RSV PCR Negative Normal Negative [facility] Comment on above: Result Comment: Note s 1990 Performed By: #### C VFLURV ####[place] [address] SARS-CoV-2 (COVID-19) RNA ALEJANDRO+probe Ql (Unsp spec) Negative Normal Negative [facility] Comment on above: Result Comment: [...] FDA Approved. Performed By: #### C VFLURV ####[place] [address] D-DIMER, QUANTITATIVEon 05-24 D-DIMER QUANT 5358 ng/ml High 0 - 230 [facility] Comment on above: Performed By: #### 2 17723 ####[facility],[address] [place] [address] 64494 D-DIMER, QUANTITATIVE Normal [facility] Comment on above: Result Comment: SILVANO T D-DIMER Performed By: #### 2 40288 ####[facility],[address] [place] [address] 70476 DRUGSon 06-16-2025 Acetaminophen [Mass/Vol] ug/mL Low 10.0-20.0 [facility] Comment on above: Performed By: #### Amina RUGS #### [place] [address] Ethanol Level <10.[address] [facility] Comment on above: Performed By: #### Amina RUGS #### [place] [id number] Salicylate Lvl (ds) <3.0 Low 10.0-25.0 [facility] Comment on above: Performed By: #### Amina RUGS #### [place] [address] Serum Drugs screened: See Below Normal [facility] Comment on above: Result Comment: This drug screen is a presumptive screening only. No confirmation will be performed unless requested. Drugs included in the serum drug screen are: Threshold Ethanol 10.0 mg/dL Salicylate 2.0 mg/dl Acetaminophen 2.0 mcg/mL Testing has been performed FOR MEDICAL PURPOSES ONLY. Performed By: #### Amina RUGS #### [place] [address] DRUGUon 06-16-2025 Benzodiazepine (u) Positive Abnormal Negative [facility] Comment on above: Performed By: #### L AC #### [place] [id number] Cannabinoid (u) Positive Abnormal Negative [facility] Comment on above: Performed By: #### L AC #### [place] [address] U pH Drug Scrn 6.0 Normal 5.0-8.0 [facility] Comment on above: Performed By: #### L AC #### [place] [id number] Amphetamine (u) Negative Normal Negative [facility] Comment on above: Performed By: #### L AC #### [address] [address] Barbiturate (u) Negative Normal Negative [facility] Comment on above: Performed By: #### L AC #### [place] [address] Cocaine Ql (U) Negative Normal Negative [facility] Comment on above: Performed By: #### L AC #### [place] [id number] Fentanyl (u) Negative Normal Negative [facility] Comment on above: Result Comment: Test ing has been performed FOR MEDICAL PURPOSES ONLY. Performed By: #### L AC #### [place] [address] Methadone Ql (U) Negative Normal Negative [facility] Comment on above: Performed By: #### L AC #### [place] [id number] Opiate (u) Negative Normal Negative [facility] Comment on above: Performed By: #### L AC #### [place] [id number] Oxycodone (u) Negative Normal Negative [facility] Comment on above: Result Comment: Test ing has been performed FOR MEDICAL PURPOSES ONLY. Performed By: #### L AC #### [place] [id number] PCP (u) Negative Normal Negative [facility] Comment on above: Performed By: #### L AC #### [place] [id number] Propoxyphene (u) Negative Normal Negative [facility] Comment on above: Performed By: #### L AC #### [place] [id number] Urine Drugs screened: See Below Normal [facility] Comment on above: Result Comment: [...] MEDICAL PURPOSES ONLY. Performed By: #### L #### [place] [address] ED MED ADMINISTRATION DETAIL on 06-16-2025 ED MED ADMINISTRATION DETAIL Normal [facility] ED NURSES CLINICAL NOTEon ED NURSES CLINICAL NOTE Normal [facility] ED ORDER SHEET (CPOE ONLY)on 06-16-2025 ED ORDER SHEET (CPOE ONLY) Normal [facility] ED PHYSICIAN CLINICAL REPORT on 06-16-2025 ED PHYSICIAN CLINICAL REPORT Normal [facility] ED SUPER BILLon 06-16-2025 ED SUPER BILL Normal [facility] ED VISIT SUMMARYon ED VISIT SUMMARY Normal [facility] ED VITALS FLOW SHEETon 06-16 ED VITALS FLOW SHEET Normal [facility] LABORATORYOrdered By: SYSTEM SYSTEM on 06-16-2025 Lactate [Moles/Vol] 2.0 mmol/L Normal 0.5 - 2. 2 mmol/L ADM SS PT Coag (PPP) [Time] 14.4 s Normal 9.0 - 1 4.4 seconds [facility] Comment on above: Interpretive Data: E ffective 05/06/08, Protime results may be affected by some antibiotics (i.e. Ciprofloxacin, Azithromycin, Bactrim) which may potentiate the action of oral anticoagulants, with further increases in Protime/INR. PT International Ratio 1.2 ratio Invalid Interpretation Code [facility] Comment on above: Interpretive Data: T jt [employer] (CHEST, 1992, 102:312S-25S) [...] Normal 0.5 - 2. 2 mmol/L ADM Troponin I.cardiac DL <= 0.01 ng/mL [Mass/Vol] 951 ng/L High 0 - 34 ng/L ADM Comment on above: Interpretive Data: High Sensitive Troponin I Reference Ranges: Female: 0-34 ng/L Male: 0-54 ng/L Testing performed on [employer] IM analyzer using direct chemiluminescent technology. Phosphate [Mass/Vol] 4.2 mg/dL Normal 2.4 - 5 .1 mg/dL [facility] LABORATORYOrdered By: Thompson Garcia on 06-16-2025 Acetaminophen [Mass/Vol] mcg/mL Low 10.0 - 20.0 mcg/mL ADM Ethanol [Mass/Vol] mg/dL Invalid Interpretation Code ADM Salicylates [Mass/Vol] mg/dL Low 10.0 - 25.0 mg/dL [facility] Serum Drugs screened: See Below 18 (06/16/25 [...] (06/16/25 11:09 AM) Invalid Interpretation Code Negative ADM SS Barbiturates Screen Ql (U) Negative [...] (U) 6.0 [pH] Normal 5.0 - 8.0 AH Chemistry S Phencyclidine Ql (U) Negative *NA* (06/16/25 11:09 AM) Invalid Interpretation Code Negative AH ADM SS Propoxyphene Screen Ql (U) Negative *NA* (06/16/25 11:09 AM) Invalid Interpretation Code Negative AH ADM SS Urine Drugs screened: See Below 19 (06/16/25 11:09 AM) Normal Chemistry S Comment on above: Interpretive [...] inaccurate positive results. FDA Approved. LABORATORYOrdered By: Myrandajosétamara adrien Santillan on 06-16-2025 M. pneumoniae IgG IA [...] (S) Negative 28 (06/16/25 10:25 AM) Normal [facility] Comment on [...] Lactic Acid Lvl 2.0 mmol/L Normal 0.5-2.2 [facility] Comment on above: Order Comment: Order ed secondary to Lactic Acid result greater than or equal to 2.0 Performed By: #### L AC #### [address] [address] Lactic Acid Lvl 2.1 mmol/L Normal 0.5-2.2 [facility] Comment on above: Performed By: #### C BC, ADIFF, ANEU, APTT, CMP, HFP, GFR #### [address] [address] Lactic Acid Lvl 1.5 mmol/L Normal 0.5-2.2 [facility] Comment on above: Performed By: #### L AC #### [address] [address] Lactic Acid Lvl 1.7 mmol/L Normal 0.5-2.2 [facility] Comment on above: Performed By: #### L AC #### [place] [id number] LACTATEon 06-16-2025 Lactate [Moles/Vol] 3.9 mmol/L High 0.4 - 2.0 [facility] Comment on above: Result Comment: LACT ATE 3 HR NOTIFIED TO: _DANIELITO_RN 06/16/25.0422.ALA. . . LACTATE 3 HR NOTIFIED BY: _AA 06/16/25.0422.ALA. . . Performed By: #### 2 98078 ####[facility],[address] [place] [address] 84197 MGon 06-16-2025 Magnesium [Mass/Vol] 2.0 mg/dL Normal 1.6-2.4 [facility] Comment on above: Performed By: #### L AC #### [place] [address] MYCOon 06-16-2025 Mycoplasma IgG Negative [facility] Comment on above: Result Comment: INTE RPRETATION OF MYCOPLASMA IgG BY EIA: Negative: No detectable M. pneumoniae IgG antibody. Positive: Mycoplasma pneumoniae IgG antibody Detected. Equivocal: Equivocal for IgG antibodies to Mycoplasma pneumoniae. Suggest repeat testing in 10-14 days. Performed By: #### L AC #### [place] [address] Mycoplasma IgM Negative [facility] Comment on above: Result Comment: INTE RPRETATION OF MYCOPLASMA IgM: Negative: IgM to M. pneumoniae Absent, or at levels below the assay limit of detection. Positive: IgM to M. pneumoniae Present. Invalid: Test results are invalid due to invalid internal control. Assay was performed in duplicate. Repeat testing is suggested if clinically indicated. Performed By: #### L AC #### [place] [address] NT-proBNPon 06-16-2025 Natriuretic peptide B (Bld) [Mass/Vol] 4094 pg/mL High 0 - 125 [facility] Comment on above: Performed By: #### 2 81408 ####[facility],[address] [place] [address] No Panel InformationOrdered By: Luis Chang on 06-16-2025 Culture Respiratory with Gram Stain Normal respiratory renu present at 48 hours Sensitivity testing not indicated [facility] Comment on above: Requests for Mycopla sma, Legionella, Fungi, Mycobacteria, Chlamydia, and Viruses require ordering of those individual tests. GS Rare Gram Positive Cocci [facility] Comment on above: Requests for Mycopla sma, Legionella, Fungi, Mycobacteria, Chlamydia, and Viruses require ordering of those individual tests. No Panel Informationon 06-16 Legionella Urine Ag Presumptive negative for L. pneumophila serogroup 1 antigen in urine, suggesting no recent or current infection. Legionnaire's disease cannot be ruled out since other serogroups and species may also cause disease. [facility] Streptococcus Pneumoniae Urine Antig Presumptive negative for pneumococcal pneumonia, suggesting no current or recent pneumococcal infection. Infection due to Strep pneumoniae cannot be ruled out since the antigen present in the sample may be below the detection limit of the test. [facility] Comment on above: This test has not be en evaluated on patients taking antibiotics for greater than 24 hours or on patients who have recently completed an antibiotic regimen. The accuracy of this test has not been proven in young children. Microscopic examination of blood, culture Blood Culture: No Growth at 5 days. [facility] PHOSon 06-16-2025 Phosphate [Mass/Vol] 4.2 mg/dL Normal 2.4-5.1 [facility] Comment on above: Performed By: #### L AC #### [place] [id number] [address] [place] [address] PROon 06-16-2025 INR Coag (PPP) [Relative time] 1.2 {INR} Normal [facility] Comment on above: Result Comment: The [employer] (CHEST, 1992, 102:312S-25S) recommended therapeutic range for oral anticoagulant therapy is: LOW RISK: Prophylaxis of venous thrombosis INR: 2.0-3.0 Treatment of pulmonary embolism 2.0-3.0 Prevention of systemic embolism 2.0-3.0 HIGH RISK: Mechanical prosthetic valves 2.5-3.5 Performed By: #### C BC, ADIFF, ANEU, APTT, CMP, HFP, GFR #### [facility] [address] [place] [address] 58536 PT Coag (PPP) [Time] 14.4 s Normal 9.0-14.4 [facility] Comment on above: Result Comment: Effe ctive 05/06/08, Protime results may be affected by some antibiotics (i.e. Ciprofloxacin, Azithromycin, Bactrim) which may potentiate the action of oral anticoagulants, with further increases in Protime/INR. Performed By: #### C BC, ADIFF, ANEU, APTT, CMP, HFP, GFR #### [facility] [address] [place] [address] 65782 PROTHROMBIN TIME AND INRon 0 06-16-2025 INR Coag (PPP) [Relative time] 1.1 {INR} Normal 0.8 - 1.2 [facility] Comment on above: Result Comment: T HE [...] MECHANICAL HEART VALVES Performed By: #### 2 23698 ####[facility],[address] [place], [place] [phone] PROTHROMBIN TIME AND INR Normal [facility] Comment on above: Result Comment: PROT HROMBIN TIME AND INR Performed By: #### 2 40059 ####[facility],[address] [place], [place] [id number] PT-COUMADIN 11.8 sec Normal 9.3 - 14.1 [facility] Comment on above: Performed By: #### 2 83778 ####[facility],[address] [place], [place] [id number] TROPHSon 06-16-2025 High Sensitivity Troponin I 1085 ng/L High 0-34 [facility] Comment on above: Result Comment: High Sensitive Troponin I Reference Ranges: Female: 0-34 ng/L Male: 0-54 ng/L Testing performed on [employer] IM analyzer using direct chemiluminescent technology. Performed By: #### L AC #### [place] [id number] High Sensitivity Troponin I 951 ng/L High [address] [facility] Comment on above: Result Comment: High Sensitive Troponin I Reference Ranges: Female: 0-34 ng/L Male: 0-54 ng/L Testing performed on [employer] IM analyzer using direct chemiluminescent technology. Performed By: #### C BC, ADIFF, ANEU, APTT, CMP, HFP, GFR #### [place] [id number] TROPONINon 06-16-2025 HS TROPONIN 282.4 pg/mL Critically high 0.0 - 51.4 [facility] Comment on above: Result Comment: { CA LLED TO DANIELITO RN BY AA [id number]{ READ BACK BY DANIELITO RN RA [id number] Performed By: #### 2 03076 ####[place] [address] HS TROPONIN 217.4 pg/mL Critically high 0.0 - 51.4 [facility] Comment on above: Result Comment: { CA LLED TO DANIELITO RN BY AA [id number]{ READ BACK BY DANIELITO RN RA [id number] Performed By: #### 2 27315 ####[facility],[address] [place] [address] URINALYSISon 06-16-2025 Amorphous NONE Normal [facility] Comment on above: Performed By: #### 2 95334 ####[place] [address] Bacteria NONE Normal [facility] Comment on above: Performed By: #### 2 23776 ####[facility],[address] [place] [address] Bilirubin Ql (U) Negative Normal NORMAL: NEGATIVE [facility] Comment on above: Performed By: #### 2 74522 ####[facility],[address] [place] [address] 14967 Casts NONE Normal [facility] Comment on above: Performed By: #### 2 74851 ####[facility],[address] [place] [address] 19010 Clarity (U) clear Normal NORMAL: CLEAR [facility] Comment on above: Performed By: #### 2 35643 ####[facility],[address] [place] [address] 69450 Color (U) ariane Normal NORMAL: YELLOW [facility] Comment on above: Performed By: #### 2 84570 ####[facility],[address] [place] [address] 04033 Crystals LM Nom (Urine sed) NONE Normal [facility] Comment on above: Performed By: #### 2 41858 ####[facility],[address] [place] [address] 99338 Epi Cells NONE Normal [facility] Comment on above: Performed By: #### 2 06150 ####[facility],[address] [place] [address] 06379 Glucose Ql (U) 50 Abnormal NORMAL: NORMAL [facility] Comment on above: Performed By: #### 2 39895 ####[facility],[address] [place] [address] 44785 Hemoglobin Ql (U) 150 Abnormal NORMAL: NEGATIVE [facility] Comment on above: Performed By: #### 2 49226 ####[facility],[address] [place] [address] 49495 Ketone Negative Normal NORMAL: NEGATIVE [facility] Comment on above: Performed By: #### 2 93371 ####[facility],[address] [place] [address] 30715 Leukocytes Negative Normal NORMAL: NEGATIVE [facility] Comment on above: Performed By: #### 2 34065 ####[facility],[address] [place] [address] Mucous NONE Normal [facility] Comment on above: Performed By: #### 2 41379 ####[facility],[address] [place] [address] Nitrite Ql (U) Negative Normal NORMAL: NEGATIVE [facility] Comment on above: Performed By: #### 2 59517 ####[facility],[address] [place] [address] pH (U) 6 [pH] Normal NORMAL: 5.0-8.0 [facility] Comment on above: Performed By: #### 2 24117 ####[facility],[address] [place] [address] Protein Ql (U) 500 Abnormal NORMAL: NEGATIVE [facility] Comment on above: Performed By: #### 2 53005 ####[facility],[address] [place] [address] Rbc 0-5 Normal 0-3/hpf [facility] Comment on above: Performed By: #### 2 71431 ####[facility],[address] [place] [address] Sp [place] 1.025 Normal NORMAL: 1.010-1.030 [facility] Comment on above: Performed By: #### 2 63481 ####[facility],[address] [place] [address] Specimen Type R Normal [facility] Comment on above: Performed By: #### 2 99409 ####[facility],[address] [place] [address] Urinalysis dipstick W Reflex Microscopic panel (U) SEE BELOW Normal [facility] Comment on above: Result Comment: MICR OSCOPIC Performed By: #### 2 00021 ####[facility],[address] [place] [address] Urobilinog 1 Abnormal NORMAL: NORMAL [facility] Comment on above: Performed By: #### 2 88591 ####[facility],[address] [facility],[place] [address] Wbc NONE Normal 0-5/hpf [facility] Comment on above: Performed By: #### 2 43868 ####[facility],[address] [place] [address],[place] [address] Yeast NONE Normal [facility] Comment on above: Performed By: #### 2 07251 ####[facility],[address] [place] [address],[facility] [address] VBGon 06-16-2025 vBE -3 mmol/L Low -2 - 3 [facility] Comment on above: Performed By: #### 2 59098 ####[facility],[address] [place] [address],[facility] [address] vHCO3 28 mmol/L Normal 23 - 28 [facility] Comment on above: Performed By: #### 2 06809 ####[facility],[address] [place] [address],[facility] [address] vpCO2 109 mmHg High 41 - 51 [facility] Comment on above: Performed By: #### 2 61812 ####[facility],[address] [place] [address] 50817 vpH 7.02 Low 7.31 - 7.41 [facility] Comment on above: Performed By: #### 2 46787 ####[facility],[address] [place] [address] [place] [address] vpO2 42 mmHg Normal [facility] Comment on above: Performed By: #### 2 95266 ####[facility],[address] [place] [address],[facility] [address] vsO2 51 % Normal [facility] Comment on above: Performed By: #### 2 03984 ####[facility],[address] [place] [address] 34934 vBE 1 mmol/L Normal -2 - 3 [facility] Comment on above: Performed By: #### 2 97411 ####[facility],[address] [place] [address] 85943 vHCO3 31 mmol/L High 23 - 28 [facility] Comment on above: Performed By: #### 2 73542 ####[facility],[address] [place] [address] 44564 vpCO2 101 mmHg High 41 - 51 [facility] Comment on above: Performed By: #### 2 25846 ####[facility],[address] [place] [address] 37636 vpH 7.08 Low 7.31 - 7.41 [facility] Comment on above: Performed By: #### 2 63391 ####[facility],[address] [place] [address] 56688 vpO2 33 mmHg Normal [facility] Comment on above: Performed By: #### 2 78484 ####[facility],[address] [place] [address] 66023 vsO2 39 % Normal [facility] Comment on above: Performed By: #### 2 35653 ####[facility],[address] [place] [address] 34717 XR CHEST 1 VIEWon 06-16-2025 XR CHEST [...] 10:44:49 AM Ordering Provider: VANDANA DOS SANTOS [facility] BMP with eGFRon 03-07-2025 AGE 70 years Normal [facility] Comment on above: Performed By: #### 2 36390 ####[facility],[address] [place] [address]302 Anion gap [Moles/Vol] 9 mmol/L Low 10 - 20 [facility] Comment on above: Performed By: #### 2 55307 ####[facility],[address] [place] [address] 65163 BMP with eGFR Normal [facility] Comment on above: Result Comment: BASI C METABOLIC PANEL Performed By: #### 2 35992 ####[facility],[address] [place] [address] 08088 Calcium [Mass/Vol] 8.7 mg/dL Normal 8.5 - 10.1 [facility] Comment on above: Performed By: #### 2 93074 ####[facility],[address] [place] [address] Chloride [Moles/Vol] 103 mmol/L Normal 98 - 107 [facility] Comment on above: Performed By: #### 2 16527 ####[facility],[address] [place] [address] 40252 CO2 [Moles/Vol] 31.6 mmol/L Normal 21.0 - 32.0 [facility] Comment on above: Performed By: #### 2 86803 ####[facility],[address] [place] [address] 09738 Creatinine [Mass/Vol] 1.16 mg/dL High 0.55 - 1.02 [facility] Comment on above: Performed By: #### 2 95427 ####[facility],[address] [place] [address] 78730 eGFR 46 ML/MINUTE Low 60 - 999 [facility] Comment on above: Performed By: #### 2 26381 ####[facility],[address] [place] [address] 48954 eGFR(AA) 56 ML/MINUTE Low 60 - 999 [facility] Comment on above: Result Comment: ACCO RDING TO THE NATIONAL KIDNEY DISEASE EDUCATION PROGRAM(NKDE), A NORMAL eGFRIS A VALUE GREATER THAN OR EQUAL TO 60 ML/MIN/1.73 SQ METERS.CHRONIC KIDNEY DISEASE: <60mL/MIN/1.73 SQ METERSKIDNEY FAILURE: <15mL/MIN/1.73 SQ METERSTHIS TEST SHOULD ONLY BE USED FOR PATIENTS 18 YEARS OF AGE AND OLDER. Performed By: #### 2 43727 ####[facility],[address] [place] [address] 30314 Glucose [Mass/Vol] 96 mg/dL Normal 74 - 106 [facility] Comment on above: Performed By: #### 2 46101 ####[facility],[address] [place] [address] 77258 Potassium [Moles/Vol] 3.4 mmol/L Low 3.5 - 5.1 [facility] Comment on above: Performed By: #### 2 97086 ####[facility],[address] [place] [address] 93795 Sodium [Moles/Vol] 140 mmol/L Normal 136 - 145 [facility] Comment on above: Performed By: #### 2 83906 ####[facility],[address] [place] [address] 45635 Urea nitrogen [Mass/Vol] 25 mg/dL High 7 - 18 [facility] Comment on above: Performed By: #### 2 74683 ####[facility],[address] [place] [address] 58579 CMP with eGFRon 11-13-2024 AGE 69 years Normal [facility] Comment on above: Performed By: #### 2 74832 ####[facility],[address] [place] [address] 97406 Albumin [Mass/Vol] 2.4 g/dL Low 3.4 - 5.0 [facility] Comment on above: Performed By: #### 2 53849 ####[facility],[address] [place] [address] 83889 Albumin/Globulin [Mass ratio] 0.8 {ratio} Low 0.9 - 1.6 [facility] Comment on above: Performed By: #### 2 01226 ####[facility],[address] [place] [address] 54898 ALK PHOS 57 U/L Normal 46 - 116 [facility] Comment on above: Performed By: #### 2 56514 ####[facility],[address] [place] [address] 67808 ALT [Catalytic activity/Vol] 55 U/L Normal 16 - 63 [facility] Comment on above: Performed By: #### 2 57903 ####[facility],[address] [place] [address] 27428 Anion gap [Moles/Vol] 9 mmol/L Low 10 - 20 [facility] Comment on above: Performed By: #### 2 14176 ####[facility],[address] [place] [address] 79687 AST [Catalytic activity/Vol] 37 U/L Normal 13 - 39 [facility] Comment on above: Performed By: #### 2 07071 ####[facility],[address] [place] [address] 55058 B/C RATIO 12 ratio Normal 0 - 30 [facility] Comment on above: Performed By: #### 2 19544 ####[facility],[address] [place] [address] 59327 Bilirubin [Mass/Vol] 0.3 mg/dL Normal 0.2 - 1.0 [facility] Comment on above: Performed By: #### 2 42977 ####[facility],[address] [place] [address] 79784 Calcium [Mass/Vol] 7.9 mg/dL Low 8.5 - 10.1 [facility] Comment on above: Performed By: #### 2 16209 ####[facility],[address] [place], [place] [id number] Chloride [Moles/Vol] 106 mmol/L Normal 98 - 107 [facility] Comment on above: Performed By: #### 2 54962 ####[facility],[address] [place], [place] [id number] CMP with eGFR Normal [facility] Comment on above: Result Comment: COMP REHENSIVE METABOLIC PANEL Performed By: #### 2 84226 ####[facility],[address] [place] [address] CO2 [Moles/Vol] 28.2 mmol/L Normal 21.0 - 32.0 [facility] Comment on above: Performed By: #### 2 92104 ####[facility],[address] [place], [place] [id number] Creatinine [Mass/Vol] 0.91 mg/dL Normal 0.55 - 1.02 [facility] Comment on above: Performed By: #### 2 43871 ####[place] [address] GFR/1.73 sq M.predicted among non-blacks MDRD (S/P/Bld) [Vol rate/Area] mL/min/{1.73_m2} Normal 60 - 999 [facility] Comment on above: Performed By: #### 2 23491 ####[facility],[address] [place] [address] Result Comment: ACCO RDING TO THE NATIONAL KIDNEY DISEASE EDUCATION PROGRAM(NKDE), A NORMAL eGFRIS A VALUE GREATER THAN OR EQUAL TO 60 ML/MIN/1.73 SQ METERS.CHRONIC KIDNEY DISEASE: <60mL/MIN/1.73 SQ METERSKIDNEY FAILURE: <15mL/MIN/1.73 SQ METERSTHIS TEST SHOULD ONLY BE USED FOR PATIENTS 18 YEARS OF AGE AND OLDER. Globulin (S) [Mass/Vol] 3.1 g/dL Normal 1.5 - 3.8 [facility] Comment on above: Performed By: #### 2 62889 ####[address] [address] Glucose [Mass/Vol] 96 mg/dL Normal 74 - 106 [facility] Comment on above: Performed By: #### 2 55633 ####[address] [address] Potassium [Moles/Vol] 3.8 mmol/L Normal 3.5 - 5.1 [facility] Comment on above: Performed By: #### 2 47500 ####[address] [address] Protein [Mass/Vol] 5.5 g/dL Low 6.4 - 8.2 [facility] Comment on above: Performed By: #### 2 71199 ####[address] [address] Sodium [Moles/Vol] 139 mmol/L Normal 136 - 145 [facility] Comment on above: Performed By: #### 2 10890 ####[address] [address] Urea nitrogen [Mass/Vol] 11 mg/dL Normal 7 - 18 [facility] Comment on above: Performed By: #### 2 52946 ####[address] [address] LIPID PROFILEon 11-13-2024 Cholesterol [Mass/Vol] 131 mg/dL Normal 0 - 240 [facility] Comment on above: Performed By: #### 2 30239 ####[address],[place] [address] Cholesterol in HDL [Mass/Vol] 50 mg/dL Normal 40 - 60 [facility] Comment on above: Performed By: #### 2 03250 ####[facility],[address] [place] [address] 12925 Cholesterol in LDL [Mass/Vol] 61 mg/dL Normal 0 - 129 [facility] Comment on above: Performed By: #### 2 81668 ####[facility],[address] [place] [address] 20401 Cholesterol.total/Bebe sterol in HDL [Mass ratio] 2.6 {ratio} Normal 0.0 - 5.0 [facility] Comment on above: Performed By: #### 2 32925 ####[facility],[address] [place] [address] 62864 Lipid 1996 panel Normal [facility] Comment on above: Result Comment: LIPI D PROFILE Performed By: #### 2 48556 ####[facility],[address] [place] [address] 05221 Triglyceride [Mass/Vol] 98 mg/dL Normal 0 - 150 [facility] Comment on above: Performed By: #### 2 47113 ####[facility],[address] [place] [address] 31386 .Auto Diffon 11-09-2024 Basophil, Absolute 0.1 10 3/mcL Normal 0.0-0.3 [facility] Comment on above: Performed By: #### L AC #### [facility] [address] [place] [address] 94743 Basophils/100 WBC (Bld) 1.2 % Normal 0.0-2.5 [facility] Comment on above: Performed By: #### L AC #### [facility] [address] [place] [address] 08373 Eosinophil, Absolute 0.2 10 3/mcL Normal 0.0-0.7 [facility] Comment on above: Performed By: #### L AC #### [place] [id number] [address] [place] [address] 65145 Eosinophils/100 WBC (Bld) 2.0 % Normal 0.0-6.0 [facility] Comment on above: Performed By: #### L AC #### [address] [address] Lymphocyte, Absolute 2.3 10 3/mcL Normal 0.9-4.3 [facility] Comment on above: Performed By: #### L AC #### [address] [address] Lymphocytes/100 WBC (Bld) 27.4 % Normal 20.0-40.0 [facility] Comment on above: Performed By: #### L AC #### [address] [address] Monocyte, Absolute 1.1 10 3/mcL Normal 0.1-1.4 [facility] Comment on above: Performed By: #### L AC #### [address] [address] Monocytes/100 WBC (Bld) 12.9 % Normal 2.0-13.0 [facility] Comment on above: Performed By: #### L AC #### [address] [address]648 Neutrophils/100 WBC (Bld) 56.5 % Normal 50.0-75.0 [facility] Comment on above: Performed By: #### L AC #### [address] [address] .GFRon 11-09-2024 GFR >60 Normal [facility] Comment on above: Result Comment: [...] meters Performed By: #### L AC #### [address] [address] GFR Non- >[address] [facility] Comment on above: Result Comment: [...] meters Performed By: #### L AC #### [place] [address] .NEUABSon 11-09-2024 Neutrophil, Absolute 4.7 10 3/mcL Normal 2.3-8.1 [facility] Comment on above: Performed By: #### L AC #### [address] [address] BMPon 11-09-2024 BUN/Creatinine Ratio 29.6 ratio High 10.0-22.0 [facility] Comment on above: Performed By: #### L AC #### [address] [address] Calcium [Mass/Vol] 8.5 mg/dL Low 8.7-10.4 [facility] Comment on above: Performed By: #### L AC #### [address] [address] Chloride [Moles/Vol] 104 mmol/L Normal 98-110 [facility] Comment on above: Performed By: #### L AC #### [address] [address] CO2 [Moles/Vol] 26 mmol/L Normal 22-32 [facility] Comment on above: Performed By: #### L AC #### [place] [id number] Creatinine [Mass/Vol] 0.81 mg/dL Normal 0.50-1.20 [facility] Comment on above: Result Comment: Test ing performed on Chegg analyzer using enzymatic creatinine methodology. Performed By: #### L AC #### [place] [id number] Electrolyte Balance 7.0 mEq/L Normal 4.0-15.0 [facility] Comment on above: Performed By: #### L AC #### [place] [id number] Glucose [Mass/Vol] 106 mg/dL Normal 82-115 [facility] Comment on above: Performed By: #### L AC #### [place] [id number] Potassium [Moles/Vol] 3.4 mmol/L Low 3.5-5.0 [facility] Comment on above: Performed By: #### L AC #### [place] [id number] Sodium [Moles/Vol] 137 mmol/L Normal 136-145 [facility] Comment on above: Performed By: #### L AC #### [place] [id number] Urea nitrogen [Mass/Vol] 24.0 mg/dL High 8.0-22.0 [facility] Comment on above: Performed By: #### L AC #### [address] [address] CBCon 11-09-2024 Erythrocyte distribution width (RBC) [Ratio] 14.5 % Normal 11.5-15.5 [facility] Comment on above: Performed By: #### L AC #### [place] [id number] Hematocrit (Bld) [Volume fraction] 35.6 % Normal 34.0-46.0 [facility] Comment on above: Performed By: #### L AC #### [address] [address]55 Hgb 11.9 G/dL Low 12.0-16.0 [facility] Comment on above: Performed By: #### L AC #### [place] [address] MCH (RBC) [Entitic mass] 30.2 pg Normal 27.0-33.0 [facility] Comment on above: Performed By: #### L AC #### [place] [address] MCHC 33.5 G/dL Normal 32.0-36.0 [facility] Comment on above: Performed By: #### L AC #### [place] [address] MCV (RBC) [Entitic vol] 90.2 fL Normal 80.0-99.0 [facility] Comment on above: Performed By: #### L AC #### [place] [address] Platelet 402 10 3/mcL Normal 150-450 [facility] Comment on above: Performed By: #### L AC #### [place] [address] Platelet mean volume (Bld) [Entitic vol] 7.4 fL Normal 6.6-10.5 [facility] Comment on above: Performed By: #### L AC #### [place] [address] RBC 3.95 10 6/mcL Low 4.10-5.30 [facility] Comment on above: Performed By: #### L AC #### [place] [address] WBC 8.4 10 3/mcL Normal 4.5-10.8 [facility] Comment on above: Performed By: #### L AC #### [place] [address] LABORATORYOrdered By: SYSTEM SYSTEM on 11-09-2024 Basophils (Bld) [#/Vol] 0.1 103/mcL Normal 0.0 - 0.3 10^3/mcL AH Workflow SS Basophils/100 WBC (Bld) 1.2 % [...] above: Interpretive Data: T esting performed on Chegg analyzer using enzymatic creatinine methodology. Electrolyte Balance [...] (S/P/Bld) [Vol rate/Area] ml/min/1.73sqm Invalid Interpretation Code [facility] [employer] [facility] Comment on above: Interpretive Data: [...] (S/P/Bld) [Vol rate/Area] ml/min/1.73sqm Invalid Interpretation Code [facility] Comment on above: Interpretive Data: [...] 106 mg/dL Normal 82 - 115 mg/dL AH ADM SS Hematocrit (Bld) [Volume fraction] 35.6 % Normal 34.0 - 46.0 % AH Workflow SS Hemoglobin (Bld) [Mass/Vol] 11.9 G/dL Low 12.0 - 16.0 G/dL AH Workflow SS Lymphocytes (Bld) [#/Vol] 2.3 103/mcL Normal 0.9 - 4.3 10^3/mcL AH Workflow SS Lymphocytes/100 WBC (Bld) 27.4 % Normal 20.0 - 40.0 % AH Workflow SS Magnesium [Mass/Vol] 2.1 mg/dL Normal [...] mEq/L AH ADM SS Urea nitrogen [Mass/Vol] 24.0 mg/dL High 8.0 - 22.0 mg/dL AH ADM SS Urea nitrogen/Creatinine [Mass ratio] 29.6 ratio High 10.0 - 22.0 ratio ADM SS WBC (Bld) [#/Vol] 8.4 103/mcL Normal 4.5 - 10.8 10^3/mcL Workflow SS MGon 11-09-2024 Magnesium [Mass/Vol] 2.1 mg/dL Normal 1.6-2.4 [facility] Comment on above: Performed By: #### L AC #### [address] [address] .Auto Diffon 11-08-2024 Basophil, Absolute 0.1 10 3/mcL Normal 0.0-0.3 [facility] Comment on above: Performed By: #### C BC, ADIFF, ANEU, BMP, MG, GFR ####[address] [address] Basophils/100 WBC (Bld) 1.4 % Normal 0.0-2.5 [facility] Comment on above: Performed By: #### C BC, ADIFF, ANEU, BMP, MG, GFR ####[facility] [place] [address] 77022 Eosinophil, Absolute 0.2 10 3/mcL Normal 0.0-0.7 [facility] Comment on above: Performed By: #### C BC, ADIFF, ANEU, BMP, MG, GFR ####[address] [address] Eosinophils/100 WBC (Bld) 2.7 % Normal 0.0-6.0 [facility] Comment on above: Performed By: #### C BC, ADIFF, ANEU, BMP, MG, GFR ####[address] [address] Lymphocyte, Absolute 1.9 10 3/mcL Normal 0.9-4.3 [facility] Comment on above: Performed By: #### C BC, ADIFF, ANEU, BMP, MG, GFR ####[address] [address] Lymphocytes/100 WBC (Bld) 26.7 % Normal 20.0-40.0 [facility] Comment on above: Performed By: #### C BC, ADIFF, ANEU, BMP, MG, GFR ####[address] [address] Monocyte, Absolute 0.9 10 3/mcL Normal 0.1-1.4 [facility] Comment on above: Performed By: #### C BC, ADIFF, ANEU, BMP, MG, GFR ####[address] [address] Monocytes/100 WBC (Bld) 13.0 % Normal 2.0-13.0 [facility] Comment on above: Performed By: #### C BC, ADIFF, ANEU, BMP, MG, GFR ####[address] [address] Neutrophils/100 WBC (Bld) 56.2 % Normal 50.0-75.0 [facility] Comment on above: Performed By: #### C BC, ADIFF, ANEU, BMP, MG, GFR ####[address] [address] .GFRon 11-08-2024 GFR >60 Normal [facility] Comment on above: Result Comment: [...] C BC, ADIFF, ANEU, BMP, MG, GFR ####[address] [address] GFR Non- >[address] [facility] Comment on above: Result Comment: [...] C BC, ADIFF, ANEU, BMP, MG, GFR ####[address] [address] .NEUABSon 11-08-2024 Neutrophil, Absolute 4.1 10 3/mcL Normal 2.3-8.1 [facility] Comment on above: Performed By: #### C BC, ADIFF, ANEU, BMP, MG, GFR ####[address] [address] BMPon 11-08-2024 BUN/Creatinine Ratio 28.2 ratio High 10.0-22.0 [facility] Comment on above: Performed By: #### C BC, ADIFF, ANEU, BMP, MG, GFR ####[address] [address] Calcium [Mass/Vol] 8.8 mg/dL Normal 8.7-10.4 [facility] Comment on above: Performed By: #### C BC, ADIFF, ANEU, BMP, MG, GFR ####[address] [address] Chloride [Moles/Vol] 105 mmol/L Normal 98-110 [facility] Comment on above: Performed By: #### C BC, ADIFF, ANEU, BMP, MG, GFR ####[address] [address] CO2 [Moles/Vol] 27 mmol/L Normal 22-32 [facility] Comment on above: Performed By: #### C BC, ADIFF, ANEU, BMP, MG, GFR ####[address] [address] Creatinine [Mass/Vol] 0.71 mg/dL Normal 0.50-1.20 [facility] Comment on above: Result Comment: Test ing performed on Chegg analyzer using enzymatic creatinine methodology. Performed By: #### C BC, ADIFF, ANEU, BMP, MG, GFR ####[address] [address] Electrolyte Balance 7.0 mEq/L Normal 4.0-15.0 [facility] Comment on above: Performed By: #### C BC, ADIFF, ANEU, BMP, MG, GFR ####[address] [address] Glucose [Mass/Vol] 100 mg/dL Normal 82-115 [facility] Comment on above: Performed By: #### C BC, ADIFF, ANEU, BMP, MG, GFR ####[address] [address] Potassium [Moles/Vol] 3.5 mmol/L Normal 3.5-5.0 [facility] Comment on above: Performed By: #### C BC, ADIFF, ANEU, BMP, MG, GFR ####[address] [address] Sodium [Moles/Vol] 139 mmol/L Normal 136-145 [facility] Comment on above: Performed By: #### C BC, ADIFF, ANEU, BMP, MG, GFR ####[address] [address] Urea nitrogen [Mass/Vol] 20.0 mg/dL Normal 8.0-22.0 [facility] Comment on above: Performed By: #### C BC, ADIFF, ANEU, BMP, MG, GFR ####[place] [address] CBCon 11-08-2024 Erythrocyte distribution width (RBC) [Ratio] 14.1 % Normal 11.5-15.5 [facility] Comment on above: Performed By: #### C BC, ADIFF, ANEU, BMP, MG, GFR ####[place] [address] Hematocrit (Bld) [Volume fraction] 36.1 % Normal 34.0-46.0 [facility] Comment on above: Performed By: #### C BC, ADIFF, ANEU, BMP, MG, GFR ####[place] [address] Hgb 12.1 G/dL Normal 12.0-16.0 [facility] Comment on above: Performed By: #### C BC, ADIFF, ANEU, BMP, MG, GFR ####[place] [address] MCH (RBC) [Entitic mass] 30.0 pg Normal 27.0-33.0 [facility] Comment on above: Performed By: #### C BC, ADIFF, ANEU, BMP, MG, GFR ####[place] [address] MCHC 33.5 G/dL Normal 32.0-36.0 [facility] Comment on above: Performed By: #### C BC, ADIFF, ANEU, BMP, MG, GFR ####[place] [address] MCV (RBC) [Entitic vol] 89.7 fL Normal 80.0-99.0 [facility] Comment on above: Performed By: #### C BC, ADIFF, ANEU, BMP, MG, GFR ####[place] [address] Platelet 402 10 3/mcL Normal 150-450 [facility] Comment on above: Performed By: #### C BC, ADIFF, ANEU, BMP, MG, GFR ####[place] 467970 [address] [place] [address] Platelet mean volume (Bld) [Entitic vol] 7.5 fL Normal 6.6-10.5 [facility] Comment on above: Performed By: #### C BC, ADIFF, ANEU, BMP, MG, GFR ####[place] 467970 [address] [place] [address]59 RBC 4.02 10 6/mcL Low 4.10-5.30 [facility] Comment on above: Performed By: #### C BC, ADIFF, ANEU, BMP, MG, GFR ####[place] [address]70 [address] [place] [address]32 WBC 7.3 10 3/mcL Normal 4.5-10.8 [facility] Comment on above: Performed By: #### C BC, ADIFF, ANEU, BMP, MG, GFR ####[place] 467970 [address] [place] [address] LABORATORYOrdered By: Tricia Kinney on 11-08-2024 Glucose [Mass/Vol] 107 mg/dL Normal 82 - 115 mg/dL [facility] LABORATORYOrdered By: SYSTEM SYSTEM on 11-08-2024 Basophils (Bld) [#/Vol] 0.1 103/mcL Normal 0.0 - 0.3 10^3/mcL Workflow SS Basophils/100 WBC (Bld) 1.4 % Normal 0.0 - 2.5 % Workflow SS Calcium [Mass/Vol] 8.8 mg/dL Normal 8.7 - 10. 4 mg/dL ADM SS Chloride [Moles/Vol] 105 mmol/L Normal 98 - 11 0 mEq/L ADM SS CO2 [Moles/Vol] 27 mmol/L Normal 22 - 32 mEq/L ADM SS Creatinine [Mass/Vol] 0.71 mg/dL Normal 0.50 - 1.20 mg/dL ADM SS Comment on above: Interpretive Data: T esting performed on Chegg analyzer using enzymatic creatinine methodology. Electrolyte Balance 7.0 mEq/L Normal 4.0 - 15 .0 mEq/L ADM SS Eosinophils (Bld) [#/Vol] 0.2 103/mcL Normal 0.0 - 0.7 10^3/mcL AH Workflow SS Eosinophils/100 WBC (Bld) 2.7 % Normal 0.0 - 6.0 % Workflow SS Erythrocyte distribution width (RBC) [Ratio] 14.1 % Normal 11.5 - 15.5 % Workflow SS GFR/1.73 sq M.predicted among blacks MDRD (S/P/Bld) [Vol rate/Area] ml/min/1.73sqm Invalid Interpretation Code [facility] Comment on above: Interpretive Data: GFR Population [...] (S/P/Bld) [Vol rate/Area] ml/min/1.73sqm Invalid Interpretation Code [facility] Comment on above: Interpretive Data: GFR Population [...] 115 mg/dL ADM Hematocrit (Bld) [Volume fraction] 36.1 % Normal 34.0 - 46.0 % Workflow SS Hemoglobin (Bld) [Mass/Vol] 12.1 G/dL Normal 12.0 - 16.0 G/dL AH Workflow SS Lymphocytes (Bld) [#/Vol] 1.9 103/mcL Normal 0.9 - 4.3 10^3/mcL AH Workflow SS Lymphocytes/100 WBC (Bld) 26.7 % Normal 20.0 - 40.0 % AH Workflow SS Magnesium [Mass/Vol] 2.0 mg/dL Normal 1.6 - 2 .4 mg/dL AH ADM SS MCH (RBC) [Entitic mass] 30.0 [...] mEq/L AH ADM SS Urea nitrogen [Mass/Vol] 20.0 mg/dL Normal 8.0 - 22.0 mg/dL AH ADM SS Urea nitrogen/Creatinine [Mass ratio] 28.2 ratio High 10.0 - 22.0 ratio AH ADM SS WBC (Bld) [#/Vol] 7.3 103/mcL Normal 4.5 - 10.8 10^3/mcL AH Workflow SS MGon 11-08-2024 Magnesium [Mass/Vol] 2.0 mg/dL Normal 1.6-2.4 [facility] Comment on above: Performed By: #### C BC, ADIFF, ANEU, BMP, MG, GFR ####[address] [address] .Auto Diffon 11-07-2024 Basophil, Absolute 0.1 10 3/mcL Normal 0.0-0.3 [facility] Comment on above: Performed By: #### L AC #### [address] [address] Basophils/100 WBC (Bld) 1.0 % Normal 0.0-2.5 [facility] Comment on above: Performed By: #### L AC #### [address] [address] Eosinophil, Absolute 0.1 10 3/mcL Normal 0.0-0.7 [facility] Comment on above: Performed By: #### L AC #### [address] [address] Eosinophils/100 WBC (Bld) 0.9 % Normal 0.0-6.0 [facility] Comment on above: Performed By: #### L AC #### [address] [address] Lymphocyte, Absolute 1.3 10 3/mcL Normal 0.9-4.3 [facility] Comment on above: Performed By: #### L AC #### [address] [address] Lymphocytes/100 WBC (Bld) 14.5 % Low 20.0-40.0 [facility] Comment on above: Performed By: #### L AC #### [address] [address] Monocyte, Absolute 1.0 10 3/mcL Normal 0.1-1.4 [facility] Comment on above: Performed By: #### L AC #### [address] [address] Monocytes/100 WBC (Bld) 10.3 % Normal 2.0-13.0 [facility] Comment on above: Performed By: #### L AC #### [address] [address] Neutrophils/100 WBC (Bld) 73.3 % Normal 50.0-75.0 [facility] Comment on above: Performed By: #### L AC #### [address] [address] .GFRon 11-07-2024 GFR Non- >60 [facility] Comment on above: Result Comment: [...] meters Performed By: #### L AC #### [address] [address] GFR >60 [facility] Comment on above: Result Comment: GFR [...] meters Performed By: #### L AC #### [address] [address] .NEUABSon 11-07-2024 Neutrophil, Absolute 6.8 10 3/mcL Normal 2.3-8.1 [facility] Comment on above: Performed By: #### L AC #### [address] [address] [facility] 11-07-2024 BUN/Creatinine Ratio 38.2 ratio High 10.0-22.0 [facility] Comment on above: Performed By: #### L AC #### [address] [address] Calcium [Mass/Vol] 9.0 mg/dL Normal 8.7-10.4 [facility] Comment on above: Performed By: #### L AC #### [address] [address] Chloride [Moles/Vol] 102 mmol/L Normal 98-110 [facility] Comment on above: Performed By: #### L AC #### [address] [address] CO2 [Moles/Vol] 27 mmol/L Normal 22-32 [facility] Comment on above: Performed By: #### L AC #### [address] [address] Creatinine [Mass/Vol] 0.68 mg/dL Normal 0.50-1.20 [facility] Comment on above: Result Comment: Test ing performed on [employer] analyzer using enzymatic creatinine methodology. Performed By: #### L AC #### [address] [address] Electrolyte Balance 9.0 mEq/L Normal 4.0-15.0 [facility] Comment on above: Performed By: #### L AC #### [address] [address] Glucose [Mass/Vol] 108 mg/dL Normal 82-115 [facility] Comment on above: Performed By: #### L AC #### [address] [address] Potassium [Moles/Vol] 3.6 mmol/L Normal 3.5-5.0 [facility] Comment on above: Performed By: #### L AC #### [place] [address] Sodium [Moles/Vol] 138 mmol/L Normal 136-145 [facility] Comment on above: Performed By: #### L AC #### [place] [id number] Urea nitrogen [Mass/Vol] 26.0 mg/dL High 8.0-22.0 [facility] Comment on above: Performed By: #### L AC #### [place] [address] CBCon 11-07-2024 Erythrocyte distribution width (RBC) [Ratio] 14.2 % Normal 11.5-15.5 [facility] Comment on above: Performed By: #### L AC #### [place] [id number] Hematocrit (Bld) [Volume fraction] 33.8 % Low 34.0-46.0 [facility] Comment on above: Performed By: #### L AC #### [place] [address] Hgb 11.2 G/dL Low 12.0-16.0 [facility] Comment on above: Performed By: #### L AC #### [place] [id number] MCH (RBC) [Entitic mass] 29.6 pg Normal 27.0-33.0 [facility] Comment on above: Performed By: #### L AC #### [place] [address] MCHC 33.0 G/dL Normal 32.0-36.0 [facility] Comment on above: Performed By: #### L AC #### [place] [id number] MCV (RBC) [Entitic vol] 89.7 fL Normal 80.0-99.0 [place] [facility] Comment on above: Performed By: #### L AC #### [place] [id number] Platelet 391 10 3/mcL Normal 150-450 [facility] Comment on above: Performed By: #### L AC #### [facility] [address] [place] [address] Platelet mean volume (Bld) [Entitic vol] 7.5 fL Normal 6.6-10.5 [facility] Comment on above: Performed By: #### L AC #### [facility] [address] [place] [address] RBC 3.77 10 6/mcL Low 4.10-5.30 [facility] Comment on above: Performed By: #### L AC #### [facility] [address] [place] [address] WBC 9.3 10 3/mcL Normal 4.5-10.8 [facility] Comment on above: Performed By: #### L AC #### [place] [address] ED MED ADMINISTRATION DETAIL on 11-07-2024 ED MED ADMINISTRATION DETAIL Normal [facility] ED NURSES CLINICAL NOTEon ED NURSES CLINICAL NOTE Normal [facility] ED ORDER SHEET (CPOE ONLY)on 11-07-2024 ED ORDER SHEET (CPOE ONLY) Normal [facility] ED PHYSICIAN CLINICAL REPORT on 11-07-2024 ED PHYSICIAN CLINICAL REPORT Normal [facility] ED PHYSICIAN DISCHARGE REPOR Ton 11-07-2024 ED PHYSICIAN DISCHARGE REPORT Normal [facility] ED SUPER BILLon 11-07-2024 ED SUPER BILL Normal [facility] ED VISIT SUMMARYon ED VISIT SUMMARY Normal [facility] ED VITALS FLOW SHEETon 11-07 ED VITALS FLOW SHEET Normal [facility] LABORATORYOrdered By: Ariane Salmon on 11-07-2024 Blood Glucose Testing Reason Routine (11/07/24 3:30 AM) [facility] Glucose [Mass/Vol] 116 mg/dL High 82 - 115 mg/dL [facility] LABORATORYOrdered By: SYSTEM SYSTEM on 11-07-2024 Basophils (Bld) [#/Vol] 0.1 103/mcL Normal 0.0 - 0.3 10^3/mcL Workflow SS Basophils/100 WBC (Bld) 1.0 % Normal 0.0 - 2.5 % Workflow SS Calcium [Mass/Vol] 9.0 mg/dL Normal 8.7 - 10. 4 mg/dL ADM SS Chloride [Moles/Vol] 102 mmol/L Normal 98 - 11 0 mEq/L ADM SS CO2 [Moles/Vol] 27 mmol/L Normal 22 - 32 mEq/L ADM SS Creatinine [Mass/Vol] 0.68 mg/dL Normal 0.50 - 1.20 mg/dL ADM SS Comment on above: Interpretive Data: T esting performed on Chegg analyzer using enzymatic creatinine methodology. Electrolyte Balance 9.0 mEq/L Normal 4.0 - 15 .0 mEq/L ADM SS Eosinophils (Bld) [#/Vol] 0.1 103/mcL Normal 0.0 - 0.7 10^3/mcL Workflow SS Eosinophils/100 WBC (Bld) 0.9 % Normal 0.0 - 6.0 % Workflow SS Erythrocyte distribution width (RBC) [Ratio] 14.2 % Normal 11.5 - 15.5 % Workflow [...] 108 mg/dL Normal 82 - 115 mg/dL AH ADM SS Hematocrit (Bld) [Volume fraction] 33.8 % Low 34.0 - 46.0 % AH Workflow SS Hemoglobin (Bld) [Mass/Vol] 11.2 G/dL Low 12.0 - 16.0 G/dL AH Workflow SS Lymphocytes (Bld) [#/Vol] 1.3 103/mcL Normal 0.9 - 4.3 10^3/mcL AH Workflow SS Lymphocytes/100 WBC (Bld) 14.5 % Low 20.0 - 40.0 % AH [...] 26.0 mg/dL High 8.0 - 22.0 mg/dL ADM SS Urea nitrogen/Creatinine [Mass ratio] 38.2 ratio High 10.0 - 22.0 ratio AH ADM SS WBC (Bld) [#/Vol] 9.3 103/mcL Normal 4.5 - 10.8 10^3/mcL Workflow SS MGon 11-07-2024 Magnesium [Mass/Vol] 2.0 mg/dL Normal 1.6-2.4 [facility] Comment on above: Performed By: #### L AC #### [place] [address] XR CHEST 1 VIEWon 11-07-2024 XR CHEST [...] 11/07/2024 6:54:29 AM Ordering Provider: EMILIO REYES [facility] .Auto Diffon 11-06-2024 Basophil, Absolute 0.1 10 3/mcL Normal 0.0-0.3 [facility] Comment on above: Performed By: #### L AC #### [address] [address] Basophils/100 WBC (Bld) 1.0 % Normal 0.0-2.5 [place] Comment on above: Performed By: #### L AC #### [address] [address] Eosinophil, Absolute 0.1 10 3/mcL Normal 0.0-0.7 [facility] Comment on above: Performed By: #### L AC #### [address] [address] Eosinophils/100 WBC (Bld) 0.8 % Normal 0.0-6.0 [facility] Comment on above: Performed By: #### L AC #### [address] [address] Lymphocyte, Absolute 1.9 10 3/mcL Normal 0.9-4.3 [facility] Comment on above: Performed By: #### L AC #### [address] [address] Lymphocytes/100 WBC (Bld) 20.1 % Normal 20.0-40.0 [facility] Comment on above: Performed By: #### L AC #### [address] [address] Monocyte, Absolute 0.9 10 3/mcL Normal 0.1-1.4 [facility] Comment on above: Performed By: #### L AC #### [address] [address] Monocytes/100 WBC (Bld) 9.5 % Normal 2.0-13.0 [place] [facility] Comment on above: Performed By: #### L AC #### [address] [address] Neutrophils/100 WBC (Bld) 68.6 % Normal 50.0-75.0 [facility] Comment on above: Performed By: #### L AC #### [address] [address] .GFRon 11-06-2024 GFR >60 [facility] Comment on above: Result Comment: GFR [...] meters Performed By: #### L AC #### [place] [address] GFR Non- 60 ml/min/1.73sqm [facility] Comment on above: Result Comment: [...] meters Performed By: #### L AC #### [address] [address] GFR >60 [facility] Comment on above: Result Comment: GFR [...] meters Performed By: #### L AC #### [address] [address] GFR Non- >[address] [facility] Comment on above: Result Comment: [...] meters Performed By: #### L AC #### [address] [address] .NEUABSon 11-06-2024 Neutrophil, Absolute 6.4 10 3/mcL Normal 2.3-8.1 [facility] Comment on above: Performed By: #### L AC #### [address] [address] BGon 11-06-2024 Base excess Calc (Bld) [Moles/Vol] 3.6 mmol/L Normal [facility] Comment on above: Performed By: #### C BC, ADIFF, ANEU, APTT, CMP, HFP, GFR #### [address] [address] CO2 [Moles/Vol] 27.9 mmol/L Normal 22.0-30.0 [facility] Comment on above: Performed By: #### C BC, ADIFF, ANEU, APTT, CMP, HFP, GFR #### [address] [address] HCO3 (Bld) [Moles/Vol] 26.8 mmol/L Normal 21.0-29.0 [place] [facility] Comment on above: Performed By: #### C BC, ADIFF, ANEU, APTT, CMP, HFP, GFR #### [place] [id number] Oxygen (Bld) [Partial pressure] 97.0 mm[Hg] Normal 74.0-108.0 [facility] Comment on above: Performed By: #### C BC, ADIFF, ANEU, APTT, CMP, HFP, GFR #### [place] [address] Oxygen saturation in Blood 97.4 % High 92.0-96.0 [facility] Comment on above: Performed By: #### C BC, ADIFF, ANEU, APTT, CMP, HFP, GFR #### [place] [id number] pCO2 35.4 mmHg Normal 32.0-46.0 [facility] Comment on above: Performed By: #### C BC, ADIFF, ANEU, APTT, CMP, HFP, GFR #### [place] [id number] pH (Bld) 7.497 [pH] High 7.380-7.460 [facility] Comment on above: Performed By: #### C BC, ADIFF, ANEU, APTT, CMP, HFP, GFR #### [address] [address] BMPon 11-06-2024 BUN/Creatinine Ratio 31.2 ratio High 10.0-22.0 [facility] Comment on above: Performed By: #### L AC #### [place] [id number] Calcium [Mass/Vol] 8.5 mg/dL Low 8.7-10.4 [facility] Comment on above: Performed By: #### L AC #### [place] [id number] Chloride [Moles/Vol] 103 mmol/L Normal 98-110 [facility] Comment on above: Performed By: #### L AC #### [address] [address] CO2 [Moles/Vol] 32 mmol/L Normal 22-32 [facility] Comment on above: Performed By: #### L AC #### [address] [address] Creatinine [Mass/Vol] 0.93 mg/dL Normal 0.50-1.20 [facility] Comment on above: Result Comment: Test ing performed on Chegg analyzer using enzymatic creatinine methodology. Performed By: #### L AC #### [address] [address] Electrolyte Balance 4.0 mEq/L Normal 4.0-15.0 [facility] Comment on above: Performed By: #### L AC #### [address] [address] Glucose [Mass/Vol] 89 mg/dL Normal 82-115 [facility] Comment on above: Performed By: #### L AC #### [address] [address] Potassium [Moles/Vol] 3.0 mmol/L Low 3.5-5.0 [facility] Comment on above: Performed By: #### L AC #### [address] [address] Sodium [Moles/Vol] 139 mmol/L Normal 136-145 [facility] Comment on above: Performed By: #### L AC #### [address] [address] Urea nitrogen [Mass/Vol] 29.0 mg/dL High 8.0-22.0 [facility] Comment on above: Performed By: #### L AC #### [address] [address] BUN/Creatinine Ratio 35.3 ratio High 10.0-22.0 [facility] Comment on above: Performed By: #### L AC #### [address] [address] Calcium [Mass/Vol] 8.5 mg/dL Low 8.7-10.4 [facility] Comment on above: Performed By: #### L AC #### [address] [address] Chloride [Moles/Vol] 101 mmol/L Normal 98-110 [facility] Comment on above: Performed By: #### L AC #### [address] [address] CO2 [Moles/Vol] 32 mmol/L Normal 22-32 [facility] Comment on above: Performed By: #### L AC #### [address] [address] Creatinine [Mass/Vol] 0.85 mg/dL Normal 0.50-1.20 [facility] Comment on above: Result Comment: Test ing performed on Chegg analyzer using enzymatic creatinine methodology. Performed By: #### L AC #### [address] [address] Electrolyte Balance 7.0 mEq/L Normal 4.0-15.0 [facility] Comment on above: Performed By: #### L AC #### [address] [address] Glucose [Mass/Vol] 88 mg/dL Normal 82-115 [facility] Comment on above: Performed By: #### L AC #### [address] [address] Potassium [Moles/Vol] 3.0 mmol/L Low 3.5-5.0 [facility] Comment on above: Performed By: #### L AC #### [address] [address] Sodium [Moles/Vol] 140 mmol/L Normal 136-145 [facility] Comment on above: Performed By: #### L AC #### [address] [address] Urea nitrogen [Mass/Vol] 30.0 mg/dL High 8.0-22.0 [facility] Comment on above: Performed By: #### L AC #### [address] [address] CBCon 11-06-2024 Erythrocyte distribution width (RBC) [Ratio] 14.6 % Normal 11.5-15.5 [facility] Comment on above: Performed By: #### L AC #### [place] [address] Hematocrit (Bld) [Volume fraction] 30.7 % Low 34.0-46.0 [facility] Comment on above: Performed By: #### L AC #### [place] [address] Hgb 10.6 G/dL Low 12.0-16.0 [facility] Comment on above: Performed By: #### L AC #### [place] [address] MCH (RBC) [Entitic mass] 30.9 pg Normal 27.0-33.0 [facility] Comment on above: Performed By: #### L AC #### [place] [address] MCHC 34.4 G/dL Normal 32.0-36.0 [facility] Comment on above: Performed By: #### L AC #### [place] [address] MCV (RBC) [Entitic vol] 90.0 fL Normal 80.0-99.0 [place] Comment on above: Performed By: #### L AC #### [place] [address] Platelet 360 10 3/mcL Normal 150-450 [facility] Comment on above: Performed By: #### L AC #### [place] [address] Platelet mean volume (Bld) [Entitic vol] 7.4 fL Normal 6.6-10.5 [facility] Comment on above: Performed By: #### L AC #### [place] [address] RBC 3.41 10 6/mcL Low 4.10-5.30 [facility] Comment on above: Performed By: #### L AC #### [address] [address] WBC 9.4 10 3/mcL Normal 4.5-10.8 [facility] Comment on above: Performed By: #### L AC #### [address] [address] LABORATORYOrdered By: Pamella Tao on 11-06-2024 Blood Glucose Testing Reason Routine (11/06/24 7:36 AM) [facility] Glucose [Mass/Vol] 99 mg/dL Normal 82 - 115 mg/dL [facility] LABORATORYOrdered By: Shreya moore on 11-06-2024 Blood Glucose Testing Reason Routine (11/06/24 3:27 AM) [facility] LABORATORYOrdered By: Faina Steel on 11-06-2024 Base Excess 3.6 mmol/L Invalid Interpretation Code Main Rapid Comm SS CO2 [Moles/Vol] 27.9 mmol/L Normal 22.0 - 30.0 mmol/L Main Rapid Comm SS HCO3 (Bld) [Moles/Vol] 26.8 mmol/L Normal 21.0 - 29.0 mmol/L Main Rapid Comm SS Oxygen (Bld) [Partial pressure] 97.0 mm[Hg] Normal 74.0 - 108.0 mm Hg Main Rapid Comm SS pCO2 35.4 mm[Hg] Normal 32.0 - 46.0 mm Hg Main Rapid Comm SS pH (Bld) 7.497 [pH] High 7.380 - 7.460 Main Rapid Comm SS MGon 11-06-2024 Magnesium [Mass/Vol] 2.2 mg/dL Normal 1.6-2.4 [facility] Comment on above: Performed By: #### L AC #### [address] [address] Magnesium [Mass/Vol] 2.0 mg/dL Normal 1.6-2.4 [facility] Comment on above: Performed By: #### L AC #### [address] [address] XR CHEST 1 VIEWon 11-06-2024 XR CHEST [...] 6:39:04 AM Ordering Provider: EMILIO REYES Normal [facility] .Auto Diffon 11-05-2024 Basophil, Absolute 0.1 10 3/mcL Normal 0.0-0.3 [facility] Comment on above: Performed By: #### D RUGS #### [address] [address] Basophils/100 WBC (Bld) 0.5 % Normal 0.0-2.5 [place] Comment on above: Performed By: #### D RUGS #### [place] [id number] [address] [place] [address] Eosinophil, Absolute 0.0 10 3/mcL Normal 0.0-0.7 [facility] Comment on above: Performed By: #### D RUGS #### [facility] [address] [place] [address] Eosinophils/100 WBC (Bld) 0.1 % Normal 0.0-6.0 [facility] Comment on above: Performed By: #### D RUGS #### [facility] [address] [place] [address] Lymphocyte, Absolute 1.5 10 3/mcL Normal 0.9-4.3 [facility] Comment on above: Performed By: #### D RUGS #### [facility] [address] [place] [address] Lymphocytes/100 WBC (Bld) 12.9 % Low 20.0-40.0 [facility] Comment on above: Performed By: #### D RUGS #### [address] [address] Monocyte, Absolute 1.2 10 3/mcL Normal 0.1-1.4 [facility] Comment on above: Performed By: #### D RUGS #### [address] [address] Monocytes/100 WBC (Bld) 10.6 % Normal 2.0-13.0 [place] Comment on above: Performed By: #### D RUGS #### [address] [address] Neutrophils/100 WBC (Bld) 75.9 % High 50.0-75.0 [facility] Comment on above: Performed By: #### D RUGS #### [address] [address] .GFRon 11-05-2024 GFR >60 Normal [facility] Comment on above: Result Comment: [...] meters Performed By: #### D RUGS #### [address] [address] GFR Non- >[address] [facility] Comment on above: Result Comment: [...] 15 mL/min/1.73 square meters Performed By: #### Amina GARZA #### [address] [address] .NEUABSon 11-05-2024 Neutrophil, Absolute 8.7 10 3/mcL High 2.3-8.1 [facility] Comment on above: Performed By: #### Amina GARZA #### [address] [address] BGon 11-05-2024 Base excess Calc (Bld) [Moles/Vol] 4.1 mmol/L Normal [facility] Comment on above: Performed By: #### Sidney G ####[address] [address] CO2 [Moles/Vol] 30.0 mmol/L Normal 22.0-30.0 [facility] Comment on above: Performed By: #### Sidney G ####[address] [address] HCO3 (Bld) [Moles/Vol] 28.7 mmol/L Normal 21.0-29.0 [place] Comment on above: Performed By: #### Sidney G ####[address] [address] Oxygen (Bld) [Partial pressure] 73.4 mm[Hg] Low 74.0-108.0 [facility] Comment on above: Performed By: #### Sidney G ####[place] [id number] [address] [place] [address] Oxygen saturation in Blood 94.7 % Normal 92.0-96.0 [facility] Comment on above: Performed By: #### Sidney G ####[address] [address] pCO2 42.9 mmHg Normal 32.0-46.0 [facility] Comment on above: Performed By: #### Sidney G ####[place] [address] pH (Bld) 7.443 [pH] Normal 7.380-7.460 [facility] Comment on above: Performed By: #### Sidney G ####[place] [address] CBCon 11-05-2024 Erythrocyte distribution width (RBC) [Ratio] 14.4 % Normal 11.5-15.5 [facility] Comment on above: Performed By: #### Amina RUGBre #### [place] [address] Hematocrit (Bld) [Volume fraction] 34.4 % Normal 34.0-46.0 [facility] Comment on above: Performed By: #### Amina RUGS #### [place] [address] Hgb 11.5 G/dL Low 12.0-16.0 [facility] Comment on above: Performed By: #### Amina GARZA #### [place] [address] MCH (RBC) [Entitic mass] 30.5 pg Normal 27.0-33.0 [facility] Comment on above: Performed By: #### Amina RUGS #### [place] [address] MCHC 33.5 G/dL Normal 32.0-36.0 [facility] Comment on above: Performed By: #### Amina RUGS #### [place] [address] MCV (RBC) [Entitic vol] 91.1 fL Normal 80.0-99.0 [place] Comment on above: Performed By: #### Amina RUGS #### [place] [address] Platelet 423 10 3/mcL Normal 150-450 [facility] Comment on above: Performed By: #### Amina RUGS #### [place] [address] Platelet mean volume (Bld) [Entitic vol] 7.6 fL Normal 6.6-10.5 [facility] Comment on above: Performed By: #### Amina RUGS #### [place] [address] RBC 3.78 10 6/mcL Low 4.10-5.30 [facility] Comment on above: Performed By: #### Amina RUGS #### [place] [address] WBC 11.5 10 3/mcL High 4.5-10.8 [facility] Comment on above: Performed By: #### Amina RUGS #### [place] [address] CMPon 11-05-2024 Albumin Level 2.7 G/dL Low 3.2-4.8 [facility] Comment on above: Performed By: #### Amina RUGS #### [place] [address] Albumin/Globulin [Mass ratio] 0.8 {ratio} Low 0.9-1.6 [facility] Comment on above: Performed By: #### Amina RUGBre #### [place] [id number] ALP [Catalytic activity/Vol] 90 U/L Normal 38-126 [facility] Comment on above: Performed By: #### Amina RUGBre #### [place] [id number] ALT [Catalytic activity/Vol] 41 U/L Normal 10-49 [facility] Comment on above: Performed By: #### Amina RUGS #### [place] [id number] AST [Catalytic activity/Vol] 51 U/L High 8-34 [facility] Comment on above: Performed By: #### Amina RUGS #### [place] [address] Bili Total 0.40 mg/dL Normal 0.20-1.20 [facility] Comment on above: Result Comment: Use of this assay is not recommended for patients undergoing treatment with eltrombopag due to the potential for falsely elevated results. Performed By: #### D RUGS #### [place] [id number] BUN/Creatinine Ratio 28.7 ratio High 10.0-22.0 [facility] Comment on above: Performed By: #### D RUGS #### [place] [id number] Calcium [Mass/Vol] 8.5 mg/dL Low 8.7-10.4 [facility] Comment on above: Performed By: #### D RUGS #### [place] [id number] Chloride [Moles/Vol] 101 mmol/L Normal 98-110 [facility] Comment on above: Performed By: #### D RUGS #### [place] [id number] CO2 [Moles/Vol] 30 mmol/L Normal 22-32 [facility] Comment on above: Performed By: #### D RUGS #### [place] [id number] Creatinine [Mass/Vol] 0.87 mg/dL Normal 0.50-1.20 [facility] Comment on above: Result Comment: Test ing performed on Chegg analyzer using enzymatic creatinine methodology. Performed By: #### Amina RUGS #### [place] [id number] Electrolyte Balance 8.0 mEq/L Normal 4.0-15.0 [facility] Comment on above: Performed By: #### D RUGS #### [place] [id number] Globulin 3.3 G/dL Normal 1.5-3.8 [facility] Comment on above: Performed By: #### D RUGS #### [place] [id number] Glucose [Mass/Vol] 116 mg/dL High 82-115 [facility] Comment on above: Performed By: #### Amina RUGS #### [facility] [address] [place], [place] [address] Potassium [Moles/Vol] 4.6 mmol/L Normal 3.5-5.0 [facility] Comment on above: Performed By: #### D RUGS #### [address] [address] Sodium [Moles/Vol] 139 mmol/L Normal 136-145 [facility] Comment on above: Performed By: #### D RUGS #### [address] [address] Total Protein 6.0 G/dL Normal 5.7-8.2 [facility] Comment on above: Performed By: #### D RUGS #### [address] [address] Urea nitrogen [Mass/Vol] 25.0 mg/dL High 8.0-22.0 [facility] Comment on above: Performed By: #### D RUGS #### [address] [address] LABORATORYOrdered By: [employer] on 11-05-2024 Albumin BCP dye [Mass/Vol] [...] Base Excess 4.1 mmol/L Invalid Interpretation Code AH Main Rapid Comm SS CO2 [Moles/Vol] 30.0 mmol/L Normal 22.0 - 30.0 mmol/L AH [...] 11-05-2024 Magnesium [Mass/Vol] 2.0 mg/dL Normal 1.6-2.4 [facility] Comment on above: Performed By: #### D RUGS #### [place] [address] MYCOon 11-05-2024 Mycoplasma IgG Negative Normal [facility] Comment on above: Result Comment: INTE RPRETATION OF MYCOPLASMA IgG BY EIA: Negative: No detectable M. pneumoniae IgG antibody. Positive: Mycoplasma pneumoniae IgG antibody Detected. Equivocal: Equivocal for IgG antibodies to Mycoplasma pneumoniae. Suggest repeat testing in 10-14 days. Performed By: #### L AC #### [place] [address] XR CHEST 1 VIEWon 11-05-2024 XR CHEST [...] Genaro No MD Preliminary Report By: Rosy Alessia Electronically signed By Genaro No MD Dictated Date: 11/05/2024 6:29:52 AM Prelim Date: 11/05/2024 6:32:42 AM Sign Date: 11/05/2024 6:36:29 AM Ordering Provider: VANDANA Soto [facility] .Auto Diffon 11-04-2024 Basophil, Absolute 0.1 10 3/mcL Normal 0.0-0.3 [facility] Comment on above: Performed By: #### L AC #### [address] [address] Basophils/100 WBC (Bld) 0.5 % Normal 0.0-2.5 [facility] Comment on above: Performed By: #### L AC #### [address] [address] Eosinophil, Absolute 0.0 10 3/mcL Normal 0.0-0.7 [facility] Comment on above: Performed By: #### L AC #### [address] [address] Eosinophils/100 WBC (Bld) 0.0 % Normal 0.0-6.0 [facility] Comment on above: Performed By: #### L AC #### [address] [address] Lymphocyte, Absolute 0.5 10 3/mcL Low 0.9-4.3 [facility] Comment on above: Performed By: #### L AC #### [address] [address] Lymphocytes/100 WBC (Bld) 3.0 % Low 20.0-40.0 [facility] Comment on above: Performed By: #### L AC #### [address] [address] Monocyte, Absolute 0.6 10 3/mcL Normal 0.1-1.4 [facility] Comment on above: Performed By: #### L AC #### [address] [address] Monocytes/100 WBC (Bld) 3.2 % Normal 2.0-13.0 [place] [facility] Comment on above: Performed By: #### L AC #### [address] [address] Neutrophils/100 WBC (Bld) 93.3 % High 50.0-75.0 [facility] Comment on above: Performed By: #### L AC #### [address] [address] .GFRon 11-04-2024 GFR >60 [facility] Comment on above: Result Comment: GFR [...] meters Performed By: #### L AC #### [address] [address] GFR Non- >60 [facility] MAIN Comment on above: Result Comment: [...] meters Performed By: #### L AC #### [address] [address] .NEUABSon 11-04-2024 Neutrophil, Absolute 16.1 10 3/mcL High 2.3-8.1 A [facility] Comment on above: Performed By: #### L AC #### [address] [address] BGon 11-04-2024 Base excess Calc (Bld) [Moles/Vol] 6.2 mmol/L Normal [facility] Comment on above: Performed By: #### C BC, ADIFF, ANEU, APTT, CMP, HFP, GFR #### [place] [id number] CO2 [Moles/Vol] 33.3 mmol/L High 22.0-30.0 [facility] Comment on above: Performed By: #### C BC, ADIFF, ANEU, APTT, CMP, HFP, GFR #### [place] [address] HCO3 (Bld) [Moles/Vol] 31.8 mmol/L High 21.0-29.0 [place] [facility] Comment on above: Performed By: #### C BC, ADIFF, ANEU, APTT, CMP, HFP, GFR #### [place] [id number] Oxygen (Bld) [Partial pressure] 105.8 mm[Hg] Normal 74.0-108.0 [facility] Comment on above: Performed By: #### C BC, ADIFF, ANEU, APTT, CMP, HFP, GFR #### [place] [id number] Oxygen saturation in Blood 98.1 % High 92.0-96.0 [facility] Comment on above: Performed By: #### C BC, ADIFF, ANEU, APTT, CMP, HFP, GFR #### [place] [id number] pCO2 49.5 mmHg High 32.0-46.0 [facility] Comment on above: Performed By: #### C BC, ADIFF, ANEU, APTT, CMP, HFP, GFR #### [place] [id number] pH (Bld) 7.425 [pH] Normal 7.380-7.460 [facility] Comment on above: Performed By: #### C BC, ADIFF, ANEU, APTT, CMP, HFP, GFR #### [place] [address] CBCon 11-04-2024 Erythrocyte distribution width (RBC) [Ratio] 14.4 % Normal 11.5-15.5 [facility] Comment on above: Performed By: #### L AC #### [place] [address] Hematocrit (Bld) [Volume fraction] 35.3 % Normal 34.0-46.0 [facility] Comment on above: Performed By: #### L AC #### [place] [address] Hgb 11.9 G/dL Low 12.0-16.0 [facility] Comment on above: Performed By: #### L AC #### [place] [address] MCH (RBC) [Entitic mass] 30.6 pg Normal 27.0-33.0 [facility] Comment on above: Performed By: #### L AC #### [place] [address] MCHC 33.7 G/dL Normal 32.0-36.0 [facility] Comment on above: Performed By: #### L AC #### [place] [address] MCV (RBC) [Entitic vol] 90.7 fL Normal 80.0-99.0 [place] [facility] Comment on above: Performed By: #### L AC #### [place] [address] Platelet 442 10 3/mcL Normal 150-450 [facility] Comment on above: Performed By: #### L AC #### [place] [id number] Platelet mean volume (Bld) [Entitic vol] 6.9 fL Normal 6.6-10.5 [facility] Comment on above: Performed By: #### L AC #### [place] [address] RBC 3.89 10 6/mcL Low 4.10-5.30 [facility] Comment on above: Performed By: #### L AC #### [place] [address] WBC 17.2 10 3/mcL High 4.5-10.8 [facility] Comment on above: Performed By: #### L AC #### [place] [address] CBC + DIFFon 11-04-2024 Baso # 0.10 x10EE3/UL Normal 0.00 - 0.10 [facility] Comment on above: Performed By: #### 2 70942 ####[facility],[address] [place], [place] [id number] Basophils/100 WBC (Bld) 0.7 % Normal 0.0 - 2.0 [facility] Comment on above: Performed By: #### 2 83517 ####[facility],[address] [place] [address] CBC + DIFF Normal [facility] Comment on above: Result Comment: CBC- COMPLETE BLOOD COUNT Performed By: #### 2 71911 ####[facility],[address] [place] [address] EO # 0.12 x10EE3/UL Normal 0.00 - 0.50 [facility] Comment on above: Performed By: #### 2 36318 ####[facility],[address] [place] [address] Eosinophils/100 WBC (Bld) 0.8 % Normal 0.0 - 7.0 [facility] Comment on above: Performed By: #### 2 28056 ####[place] [address] Erythrocyte distribution width (RBC) [Ratio] 14.1 % Normal 12.0 - 15.6 [facility] Comment on above: Performed By: #### 2 13093 ####[facility],[address] [place], [place] [id number] Hematocrit (Bld) [Volume fraction] 36.4 % Normal 34.0 - 46.0 [facility] Comment on above: Performed By: #### 2 47722 ####[facility],[address] [place] [address] Hemoglobin (Bld) [Mass/Vol] 11.9 g/dL Low 12.0 - 16.0 [facility] Comment on above: Performed By: #### 2 03049 ####[facility],[address] [place], [place] [address] Lymph # 6.40 x10EE3/UL High 0.80 - 2.80 [facility] Comment on above: Performed By: #### 2 25709 ####[facility],[address] [place] [address] Lymphocytes/100 WBC (Bld) 43.9 % Normal 20.0 - 45.0 [facility] Comment on above: Performed By: #### 2 21522 ####[facility],[address] [place] [address] MANUAL DIFF N/A Normal [facility] Comment on above: Performed By: #### 2 03750 ####[facility],[address] [place] [address] 28575 MCH (RBC) [Entitic mass] 30 pg Normal 27 - 33 [facility] Comment on above: Performed By: #### 2 74535 ####[facility],[address] [place] [address] MCHC 33 X10 3 Normal 32 - 36 [facility] Comment on above: Performed By: #### 2 55131 ####[facility],[address] [place] [address]337 MCV (RBC) [Entitic vol] 93 fL Normal 80 - 99 [facility] Comment on above: Performed By: #### 2 03194 ####[facility],[address] [place] [address] [place] # 1.36 x10EE3/UL High 0.20 - 1.00 [facility] Comment on above: Performed By: #### 2 33008 ####[facility],[address] [place] [address] MONOS % 9.4 % Normal 0.0 - 10.0 [facility] Comment on above: Performed By: #### 2 96732 ####[facility],[address] [place] [address] Morphology Dandy (Bld) [Interp] N/A Normal [facility] Comment on above: Performed By: #### 2 67779 ####[facility],[address] [place] [address] Neut # 6.60 x10EE3/UL Normal 1.50 - 7.10 [facility] Comment on above: Performed By: #### 2 82531 ####[facility],[address] [place] [address] Neutrophils/100 WBC (Bld) 45.3 % Low 46.0 - 76.0 [facility] Comment on above: Performed By: #### 2 29239 ####[facility],[address] [place] [address] PLATELET 608 x10EE3/UL High 150 - 450 [facility] Comment on above: Performed By: #### 2 98040 ####[facility],[address] [place] [address] Platelet mean volume (Bld) [Entitic vol] 7.8 fL Normal 6.6 - 10.5 [facility] Comment on above: Result Comment: AUTO MATED DIFFERENTIAL Performed By: #### 2 22601 ####[facility],[address] [place] [address]143 RBC 3.92 x 10EE6/UL Low 4.10 - 5.30 [facility] Comment on above: Performed By: #### 2 99552 ####[facility],[address] [place] [address] WBC 14.6 x 10EE3/UL High 4.5 - 10.8 [facility] Comment on above: Performed By: #### 2 36696 ####[facility],[address] [place] [address] CHEST 1 VIEWon 11-04-2024 CHEST 1 VIEW Normal [facility] CHEST 1 VIEW (PICC/ET PLACEM ENTon 11-04-2024 CHEST 1 VIEW (PICC/ET PLACEMENT Normal [facility] CMPon 11-04-2024 Albumin Level 3.1 G/dL Low 3.2-4.8 [facility] Comment on above: Performed By: #### L AC #### [place] [address] Albumin/Globulin [Mass ratio] 0.8 {ratio} Low 0.9-1.6 [facility] Comment on above: Performed By: #### L AC #### [address] [address] ALP [Catalytic activity/Vol] 99 U/L Normal 38-126 [facility] Comment on above: Performed By: #### L AC #### [place] [address] ALT [Catalytic activity/Vol] 42 U/L Normal 10-49 [facility] Comment on above: Performed By: #### L AC #### [address] [address] AST [Catalytic activity/Vol] 52 U/L High 8-34 [facility] Comment on above: Performed By: #### L AC #### [place] [id number] Bili Total 0.40 mg/dL Normal 0.20-1.20 [facility] Comment on above: Result Comment: Use of this assay is not recommended for patients undergoing treatment with eltrombopag due to the potential for falsely elevated results. Performed By: #### L AC #### [address] [address] BUN/Creatinine Ratio 23.0 ratio High 10.0-22.0 [facility] Comment on above: Performed By: #### L AC #### [address] [address] Calcium [Mass/Vol] 8.8 mg/dL Normal 8.7-10.4 [facility] Comment on above: Performed By: #### L AC #### [address] [address] Chloride [Moles/Vol] 100 mmol/L Normal 98-110 [facility] Comment on above: Performed By: #### L AC #### [address] [address] CO2 [Moles/Vol] 33 mmol/L High 22-32 [facility] Comment on above: Performed By: #### L AC #### [address] [address] Creatinine [Mass/Vol] 0.74 mg/dL Normal 0.50-1.20 [facility] Comment on above: Result Comment: Test ing performed on [employer] analyzer using enzymatic creatinine methodology. Performed By: #### L AC #### [address] [address] Electrolyte Balance 9.0 mEq/L Normal 4.0-15.0 [facility] Comment on above: Performed By: #### L AC #### [address] [address] Globulin 3.8 G/dL Normal 1.5-3.8 [facility] Comment on above: Performed By: #### L AC #### [address] [address] Glucose [Mass/Vol] 140 mg/dL High 82-115 [facility] Comment on above: Performed By: #### L AC #### [address] [address] Potassium [Moles/Vol] 3.0 mmol/L Low 3.5-5.0 [facility] Comment on above: Performed By: #### L AC #### [place] [id number] [place] [address] Sodium [Moles/Vol] 142 mmol/L Normal 136-145 [facility] Comment on above: Performed By: #### L AC #### [facility] [address] [place] [address] Total Protein 6.9 G/dL Normal 5.7-8.2 [facility] Comment on above: Performed By: #### L AC #### [address] [address] Urea nitrogen [Mass/Vol] 17.0 mg/dL Normal 8.0-22.0 [facility] Comment on above: Performed By: #### L AC #### [place] [id number] CMP with eGFRon 11-04-2024 AGE 69 years Normal [facility] Comment on above: Performed By: #### 2 03282 ####[facility],[address] [place] [address] Albumin [Mass/Vol] 3.0 g/dL Low 3.4 - 5.0 [facility] Comment on above: Performed By: #### 2 99757 ####[facility],[address] [place] [address] Albumin/Globulin [Mass ratio] 0.7 {ratio} Low 0.9 - 1.6 [facility] Comment on above: Performed By: #### 2 63872 ####[facility],[address] [place] [address] ALK PHOS 99 U/L Normal 46 - 116 [facility] Comment on above: Performed By: #### 2 18900 ####[facility],[address] [place] [address] ALT [Catalytic activity/Vol] 39 U/L Normal 16 - 63 [facility] Comment on above: Performed By: #### 2 20061 ####[facility],[address] [place] [address]678 Anion gap [Moles/Vol] 14 mmol/L Normal 10 - 20 [facility] Comment on above: Performed By: #### 2 64127 ####[facility],[address] [place] [address] 24082 AST [Catalytic activity/Vol] 41 U/L High 13 - 39 [facility] Comment on above: Performed By: #### 2 70114 ####[facility],[address] [place] [address]779 B/C RATIO 12 ratio Normal 0 - 30 [facility] Comment on above: Performed By: #### 2 03324 ####[facility],[address] [place] [address] 22903 Bilirubin [Mass/Vol] 0.5 mg/dL Normal 0.2 - 1.0 [facility] Comment on above: Performed By: #### 2 80976 ####[facility],[address] [place] [address] 51912 Calcium [Mass/Vol] 8.5 mg/dL Normal 8.5 - 10.1 [facility] Comment on above: Performed By: #### 2 13538 ####[facility],[address] [place] [address] 52587 Chloride [Moles/Vol] 100 mmol/L Normal 98 - 107 [facility] Comment on above: Performed By: #### 2 28962 ####[facility],[address] [place] [address] 28460 CMP with eGFR Normal [facility] Comment on above: Result Comment: COMP REHENSIVE METABOLIC PANEL Performed By: #### 2 52989 ####[facility],[address] [place] [address] 03944 CO2 [Moles/Vol] 28.6 mmol/L Normal 21.0 - 32.0 [facility] Comment on above: Performed By: #### 2 99355 ####[facility],[address] [place] [address] 95701 Creatinine [Mass/Vol] 1.22 mg/dL High 0.55 - 1.02 [facility] Comment on above: Performed By: #### 2 65596 ####[facility],[address] [place] [address] 37296 eGFR 44 ML/MINUTE Low 60 - 999 [facility] Comment on above: Performed By: #### 2 02662 ####[facility],[address] [place] [address] 13775 eGFR(AA) 53 ML/MINUTE Low 60 - 999 [facility] Comment on above: Result Comment: ACCO RDING TO THE NATIONAL KIDNEY DISEASE EDUCATION PROGRAM(NKDE), A NORMAL eGFRIS A VALUE GREATER THAN OR EQUAL TO 60 ML/MIN/1.73 SQ METERS.CHRONIC KIDNEY DISEASE: <60mL/MIN/1.73 SQ METERSKIDNEY FAILURE: <15mL/MIN/1.73 SQ METERSTHIS TEST SHOULD ONLY BE USED FOR PATIENTS 18 YEARS OF AGE AND OLDER. Performed By: #### 2 43012 ####[facility],[address] [place] [address]606 Globulin (S) [Mass/Vol] 4.1 g/dL High 1.5 - 3.8 [facility] Comment on above: Performed By: #### 2 88901 ####[facility],[address] [place] [address] 93632 Glucose [Mass/Vol] 296 mg/dL High 74 - 106 [facility] Comment on above: Performed By: #### 2 03257 ####[facility],[address] [place] [address] 39909 Potassium [Moles/Vol] 2.6 mmol/L Critically low 3.5 - 5.1 [facility] Comment on above: Result Comment: { CA LLED TO N MCKEON 07:31 MKY{ READ BACK BY SAME Performed By: #### 2 82494 ####[facility],[address] [place] [address] 65576 Protein [Mass/Vol] 7.1 g/dL Normal 6.4 - 8.2 [facility] Comment on above: Performed By: #### 2 09593 ####[facility],[address] [place] [address] Sodium [Moles/Vol] 140 mmol/L Normal 136 - 145 [facility] Comment on above: Performed By: #### 2 18507 ####[facility],[address] [place] [address] Urea nitrogen [Mass/Vol] 15 mg/dL Normal 7 - 18 [facility] Comment on above: Performed By: #### 2 24581 ####[facility],[address] [place] [address] CORONAVIRUS (SARS) ANTIGEN T ESTon 11-04-2024 EXTERNAL QC DONE? YES Normal [facility] Comment on above: Performed By: #### 2 74335 ####[facility],[address] [place] [address] INTERNAL CONTROL PASS Normal [facility] Comment on above: Performed By: #### 2 61826 ####[facility],[address] [place] [address] SARS ANTIGEN Negative Normal NORMAL: NEGATIVE [facility] Comment on above: Performed By: #### 2 72035 ####[facility],[address] [place] [address] SEND TO ? NO Normal [facility] Comment on above: Result Comment: SARS -CoV-2THIS TEST IS BEING USED UNDER THE FDA EUA PROCEDURE. THIS ASSAY HAS BEENVALIDATED AT [facility] FOR USE WITH NASAL AND NASOPHARYNGEAL [...] BY HEALTHCARE PROVIDERS IN CONSULTATION WITH PUBLIC [facility]ENTER[facility]IES. Performed By: #### 2 79792 ####[facility],[address] [place], [place] [id number] CT ANGIOGRAPHY CHEST W/CONTR Darling 11-04-2024 CT [...] pericardial effusion. Biatrial enlargement. Coronary artery atherosclerotic calcifications/stents. . There is no acute abnormality of the atherosclerotic thoracic aorta. Lungs/pleura: The endotracheal tube terminates approximately 4.5 cm above the steve. The lungs demonstrate severe emphysematous changes. There are small bilateral pleural effusions with adjacent atelectasis/consolidat ion. Bilateral lower lobe predominant bronchial wall thickening with mucous plugging. Areas of interlobular septal thickening are noted. Scattered calcified granulomas. Ground-glass and consolidative opacities are seen along the posterolateral aspect of the right upper lobe (2:100), which may represent a superimposed infectious/inflammator y process versus layering pleural fluid. Upper Abdomen: [...] of findings suggesting pulmonary congestion/edema. A superimposed infectious/inflammator y process is difficult to exclude. Small bilateral pleural effusions with adjacent atelectasis/consolidat ion. Findings suggesting right ventricular heart dysfunction. Severe underlying emphysema. Moderate to severe bony spinal canal stenosis at T9-T10. If symptomatic consider MRI. I have personally reviewed the images of this examination and have edited the resident's findings and interpretation. Interpreted by: Parish Thurman Preliminary Report By: Bruce Saleh Electronically signed By Parish Thurman Dictated Date: 11/04/2024 8:03:57 PM Prelim Date: 11/04/2024 8:13:05 PM Sign Date: 11/04/2024 8:33:11 PM Ordering Provider: KAYLA RYAN [facility] CT CHEST (PE PROTOCOL)on CT CHEST (PE PROTOCOL) Normal [facility] CULTURE BLOOD [MARIA TERESA]on Microscopic examination of blood, culture CULTURE BLOOD [MARIA TERESA] _BLOOD CULTURE_ [facility]ACH[facility] FOR SCANNED REPORT 11/11/24.1113.DNP.COMP [facility] Comment on above: Performed By: #### 2 33119 ####[facility],[address] [place] [address] Microscopic examination of blood, culture CULTURE BLOOD [MARIA TERESA] _BLOOD CULTURE_ [facility] AND ATTACHMENTS FOR SCANNED REPORT 11/11/24.1114.DNP.COMP [facility] Comment on above: Performed By: #### 2 67580 ####[facility],[address] [place] [address] CVFLURVon 11-04-2024 FLU A PCR Negative Normal Negative [facility] Comment on above: Result Comment: [place] s [id number] Performed By: #### L AC #### [place] [address] FLU B PCR Negative Normal Negative [facility] Comment on above: Result Comment: [place] s [id number] Performed By: #### L AC #### [place] [address] RSV PCR Negative Normal Negative [facility] Comment on above: Result Comment: [place] s [id number] Performed By: #### L AC #### [place] [address] SARS-CoV-2 (COVID-19) RNA ALEJANDRO+probe Ql (Unsp spec) Negative Normal Negative [facility] Comment on above: Result Comment: Note s [id number] This test has been authorized by FDA [...] results. Performed By: #### L AC #### [place] [address] D-DIMER, QUANTITATIVEon 10-23 D-DIMER QUANT 1795 ng/ml High 0 - 230 [facility] Comment on above: Performed By: #### 2 78047 ####[facility],[address] [place], [place] [id number] D-DIMER, QUANTITATIVE Normal [facility] Comment on above: Result Comment: SILVANO T D-DIMER Performed By: #### 2 50079 ####[facility],[address] [place] [address] 31969 FEon 11-04-2024 Iron [Mass/Vol] 18 ug/dL Low 50-170 [facility] Comment on above: Performed By: #### L AC #### [place] [id number] [place] 11-04-2024 Ferritin [Mass/Vol] 88.7 ng/mL Normal 8.0-252.0 [facility] Comment on above: Performed By: #### L AC #### [place] [id number] IBCon 11-04-2024 TIBC 328 mcg/dL Normal 250-500 [facility] Comment on above: Performed By: #### L AC #### [place] [address] INFLUENZA VIRUS RAPID A/Bon 11-04-2024 INFLUENZA VIRUS RAPID A/B Normal [facility] Comment on above: Performed By: #### 2 72411 ####[facility],[address] [place] [address] LABORATORYOrdered By: [employer] on 11-04-2024 Natriuretic peptide.B prohormone N-Terminal [place] [Mass/Vol] 7106 pg/mL High 0 - 900 pg/mL ADM SS Albumin BCP dye [Mass/Vol] 3.1 G/dL Low 3.2 - 4.8 G/dL ADM SS Albumin/Globulin [Mass ratio] 0.8 {ratio} Low 0.9 - 1.6 ratio ADM SS ALP [Catalytic activity/Vol] 99 U/L [...] mm[Hg] Normal 74.0 - 108.0 mm Hg Main Rapid Comm SS pCO2 49.5 mm[Hg] High 32.0 - 46.0 mm Hg [facility] SS pH (Bld) 7.425 [pH] Normal 7.380 - 7.460 [facility] LACon 11-04-2024 Lactic Acid Lvl 1.4 mmol/L Normal 0.5-2.2 [facility] Comment on above: Performed By: #### L AC #### [place] [address] LACTATEon 11-04-2024 Lactate [Moles/Vol] 1.8 mmol/L Normal 0.4 - 2.0 [facility] Comment on above: Performed By: #### 2 24737 ####[facility],[address] [place], [place] [id number] Lactate [Moles/Vol] 4.6 mmol/L Critically high 0.4 - 2.0 [facility] Comment on above: Result Comment: { CA LLED TO N [place] 0727 MKY{ READ BACK BY SAME LACTATE 3 HR NOTIFIED TO: _ENRIQUE_P 11/04/24.MKY. . . LACTATE 3 HR NOTIFIED BY: _MKY 11/04/24.MKY. . . Performed By: #### 2 18183 ####[facility],[address] [place] [address]1235 MGon 11-04-2024 Magnesium [Mass/Vol] 1.9 mg/dL Normal 1.6-2.4 [facility] Comment on above: Performed By: #### L AC #### [place] [address] MYCOon 11-04-2024 Mycoplasma IgM Negative Normal [facility] Comment on above: Result Comment: INTE RPRETATION OF MYCOPLASMA IgM: Negative: IgM to M. pneumoniae Absent, or at levels below the assay limit of detection. Positive: IgM to M. pneumoniae Present. Invalid: Test results are invalid due to invalid internal control. Assay was performed in duplicate. Repeat testing is suggested if clinically indicated. Performed By: #### L AC #### [place] [address] NT-proBNPon 11-04-2024 Natriuretic peptide B (Bld) [Mass/Vol] 4211 pg/mL High 0 - 125 [facility] Comment on above: Performed By: #### 2 11729 ####[facility],[address] [place] [address] 48315 No Panel Informationon 11-04 Legionella Urine Ag Presumptive negative for L. pneumophila serogroup 1 antigen in urine, suggesting no recent or current infection. Legionnaire's disease cannot be ruled out since other serogroups and species may also cause disease. [facility] Streptococcus Pneumoniae Urine Antig Presumptive negative for pneumococcal pneumonia, suggesting no current or recent pneumococcal infection. Infection due to Strep pneumoniae cannot be ruled out since the antigen present in the sample may be below the detection limit of the test. [facility] Comment on above: This test has not be en evaluated on patients taking antibiotics for greater than 24 hours or on patients who have recently completed an antibiotic regimen. The accuracy of this test has not been proven in young children. Microscopic examination of blood, culture Blood Culture: No Growth at 5 days. [facility] PBNPon 11-04-2024 Natriuretic peptide B (Bld) [Mass/Vol] 7106 pg/mL High 0-900 [facility] Comment on above: Order Comment: use e xisting specimen Performed By: #### L AC #### [place] [address] RSVon 11-04-2024 RSV Normal [facility] Comment on above: Performed By: #### 2 80397 ####[address] [address] TRFon 11-04-2024 Transferrin [Mass/Vol] 278 mg/dL Normal 202-336 [facility] Comment on above: Performed By: #### L AC #### [place] [address] TROPONINon 11-04-2024 HS TROPONIN 27.6 pg/mL Normal 0.0 - 51.4 [facility] Comment on above: Performed By: #### 2 76137 ####[address] [address] URINALYSISon 11-04-2024 Amorphous NONE Normal [facility] Comment on above: Performed By: #### 2 59685 ####[address] [address] Bacteria TRACE Normal [facility] Comment on above: Performed By: #### 2 54838 ####[address] [address] Bilirubin Ql (U) Negative Normal NORMAL: NEGATIVE [facility] Comment on above: Performed By: #### 2 37120 ####[facility],[address] [place] [address] 52403 Casts NONE Normal [facility] Comment on above: Performed By: #### 2 77792 ####[facility],[address] [place] [address] 24560 Clarity (U) clear Normal NORMAL: CLEAR [facility] Comment on above: Performed By: #### 2 78888 ####[facility],[address] [place] [address] 20960 Color (U) yellow Normal NORMAL: YELLOW [facility] Comment on above: Performed By: #### 2 44392 ####[facility],[address] [place] [address] 72267 Crystals LM Nom (Urine sed) NONE Normal [facility] Comment on above: Performed By: #### 2 49648 ####[facility],[address] [place] [address] 55163 Epi Cells NONE Normal [facility] Comment on above: Performed By: #### 2 90916 ####[facility],[address] [place] [address] 21600 Glucose Ql (U) 250 Abnormal NORMAL: NORMAL [facility] Comment on above: Performed By: #### 2 80053 ####[facility],[address] [place] [address] 30047 Hemoglobin Ql (U) 25 Abnormal NORMAL: NEGATIVE [facility] Comment on above: Performed By: #### 2 62287 ####[facility],[address] [place] [address] 56876 Ketone Negative Normal NORMAL: NEGATIVE [facility] Comment on above: Performed By: #### 2 05258 ####[facility],[address] [place] [address] 58241 Leukocytes Negative Normal NORMAL: NEGATIVE [facility] Comment on above: Performed By: #### 2 56967 ####[facility],[address] [place] [address] 55997 Mucous NONE Normal [facility] Comment on above: Performed By: #### 2 75533 ####[facility],[address] [place] [address] 38241 Nitrite Ql (U) Negative Normal NORMAL: NEGATIVE [facility] Comment on above: Performed By: #### 2 09765 ####[facility],[address] [place] [address] pH (U) 7 [pH] Normal NORMAL: 5.0-8.0 [facility] Comment on above: Performed By: #### 2 58813 ####[facility],[address] [place] [address] Protein Ql (U) 500 Abnormal NORMAL: NEGATIVE [facility] Comment on above: Performed By: #### 2 60709 ####[facility],[address] [place] [address] Rbc 5-10 Normal 0-3/hpf [facility] Comment on above: Performed By: #### 2 94854 ####[facility],[address] [place] [address] Sp [place] 1.010 Normal NORMAL: 1.010-1.030 [facility] Comment on above: Performed By: #### 2 15922 ####[facility],[address] [place], [place] [id number] Specimen Type R Normal [facility] Comment on above: Performed By: #### 2 42108 ####[facility],[address] [place], [place] [id number] Urinalysis dipstick W Reflex Microscopic panel (U) SEE BELOW Normal [facility] Comment on above: Result Comment: MICR OSCOPIC Performed By: #### 2 09552 ####[facility],[address] [place] [address] 44253 Urobilinog NORM Normal NORMAL: NORMAL [facility] Comment on above: Performed By: #### 2 96012 ####[facility],[address] [place] [address] 65299 Wbc 1-5 Normal 0-5/hpf [facility] Comment on above: Performed By: #### 2 77487 ####[facility],[address] [place] [address] 37479 Yeast NONE Normal [facility] Comment on above: Performed By: #### 2 22429 ####[facility],[address] [place] [address] URINE CULTURE [CCL]on 2024 Bacteria identified Cx Nom (U) Normal [facility] Comment on above: Performed By: #### 2 52968 ####[facility],[address] [place] [address] XR ABDOMEN APon 11-04-2024 XR ABDOMEN AP [...] 11/04/2024 12:56:39 PM Ordering Provider: KAYLA RYAN [facility] MAIN XR CHEST 1 VIEWon 11-04-2024 [...] 11/04/2024 12:56:39 PM Ordering Provider: KAYLA RYAN [facility] MAIN CBC + DIFF DAILYon Baso # 0.04 x10EE3/UL Normal 0.00 - 0.10 [facility] Comment on above: Performed By: #### 2 71312 ####[facility],[address] [place] [address] Basophils/100 WBC (Bld) 0.6 % Normal 0.0 - 2.0 [facility] Comment on above: Performed By: #### 2 05271 ####[facility],[address] [place] [address] CBC + DIFF DAILY Normal [facility] Comment on above: Result Comment: CBC- COMPLETE BLOOD COUNT Performed By: #### 2 12705 ####[place] [address] EO # 0.13 x10EE3/UL Normal 0.00 - 0.50 [facility] Comment on above: Performed By: #### 2 53838 ####[facility],[address] [place], [place] [address] Eosinophils/100 WBC (Bld) 2.0 % Normal 0.0 - 7.0 [facility] Comment on above: Performed By: #### 2 46036 ####[facility],[address] [place] [address] Erythrocyte distribution width (RBC) [Ratio] 14.2 % Normal 12.0 - 15.6 [facility] Comment on above: Performed By: #### 2 41303 ####[facility],[address] [place] [address] Hematocrit (Bld) [Volume fraction] 34.4 % Normal 34.0 - 46.0 [facility] Comment on above: Performed By: #### 2 16675 ####[facility],[address] [place] [address] Hemoglobin (Bld) [Mass/Vol] 11.3 g/dL Low 12.0 - 16.0 [facility] Comment on above: Performed By: #### 2 20990 ####[facility],[address] [place] [address] Lymph # 1.74 x10EE3/UL Normal 0.80 - 2.80 [facility] Comment on above: Performed By: #### 2 52137 ####[facility],[address] [place], [place] [id number] Lymphocytes/100 WBC (Bld) 26.5 % Normal 20.0 - 45.0 [facility] Comment on above: Performed By: #### 2 72161 ####[facility],[address] [place], [place] [id number] MANUAL DIFF N/A Normal [facility] Comment on above: Performed By: #### 2 17816 ####[facility],[address] [place], [place] [id number] MCH (RBC) [Entitic mass] 30 pg Normal 27 - 33 [facility] Comment on above: Performed By: #### 2 87234 ####[facility],[address] [place] [address] MCHC 33 X10 3 Normal 32 - 36 [facility] Comment on above: Performed By: #### 2 58129 ####[facility],[address] [place], [place] [address] MCV (RBC) [Entitic vol] 93 fL Normal 80 - 99 [facility] Comment on above: Performed By: #### 2 09322 ####[facility],[address] [place] [address] [place] # 0.86 x10EE3/UL Normal 0.20 - 1.00 [facility] Comment on above: Performed By: #### 2 56736 ####[facility],[address] [place] [address] MONOS % 13.1 % High 0.0 - 10.0 [facility] Comment on above: Performed By: #### 2 83527 ####[facility],[address] [place] [address] Morphology Dandy (Bld) [Interp] N/A Normal [facility] Comment on above: Performed By: #### 2 03836 ####[facility],[address] [place] [address] Neut # 3.81 x10EE3/UL Normal 1.50 - 7.10 [facility] Comment on above: Performed By: #### 2 72090 ####[facility],[address] [place] [address] Neutrophils/100 WBC (Bld) 57.8 % Normal 46.0 - 76.0 [facility] Comment on above: Performed By: #### 2 94265 ####[facility],[address] [place] [address] PLATELET 308 x10EE3/UL Normal 150 - 450 [facility] Comment on above: Performed By: #### 2 96942 ####[facility],[address] [place] [address] 69725 Platelet mean volume (Bld) [Entitic vol] 7.4 fL Normal 6.6 - 10.5 [facility] Comment on above: Result Comment: AUTO MATED DIFFERENTIAL Performed By: #### 2 45183 ####[facility],[address] [place] [address] 35464 RBC 3.71 x 10EE6/UL Low 4.10 - 5.30 [facility] Comment on above: Performed By: #### 2 05718 ####[facility],[address] [place] [address] 75226 WBC 6.6 x 10EE3/UL Normal 4.5 - 10.8 [facility] Comment on above: Performed By: #### 2 25201 ####[facility],[address] [place] [address] 71025 CMP with eGFR - DAILYon -0 AGE 69 years Normal [facility] Comment on above: Performed By: #### 2 73358 ####[facility],[address] [place] [address] 59440 Albumin [Mass/Vol] 2.4 g/dL Low 3.4 - 5.0 [facility] Comment on above: Performed By: #### 2 45293 ####[facility],[address] [place] [address] 62293 Albumin/Globulin [Mass ratio] 0.7 {ratio} Low 0.9 - 1.6 [facility] Comment on above: Performed By: #### 2 98588 ####[facility],[address] [place] [address] 55710 ALK PHOS 99 U/L Normal 46 - 116 [facility] Comment on above: Performed By: #### 2 64502 ####[facility],[address] [place] [address] 71086 ALT [Catalytic activity/Vol] 51 U/L Normal 16 - 63 [facility] Comment on above: Performed By: #### 2 53150 ####[facility],[address] [place] [address] 17712 Anion gap [Moles/Vol] 9 mmol/L Low 10 - 20 [facility] Comment on above: Performed By: #### 2 61949 ####[facility],[address] [place] [address] 75216 AST [Catalytic activity/Vol] 31 U/L Normal 13 - 39 [facility] Comment on above: Performed By: #### 2 62388 ####[facility],[address] [place] [address] 60340 B/C RATIO 20 ratio Normal 0 - 30 [facility] Comment on above: Performed By: #### 2 90856 ####[facility],[address] [place] [address] 19252 Bilirubin [Mass/Vol] 0.5 mg/dL Normal 0.2 - 1.0 [facility] Comment on above: Performed By: #### 2 86761 ####[facility],[address] [place] [address] 41803 Calcium [Mass/Vol] 8.7 mg/dL Normal 8.5 - 10.1 [facility] Comment on above: Performed By: #### 2 81226 ####[facility],[address] [place] [address] 53666 Chloride [Moles/Vol] 104 mmol/L Normal 98 - 107 [facility] Comment on above: Performed By: #### 2 89685 ####[facility],[address] [place] [address] 34580 CMP with eGFR - DAILY Normal [facility] Comment on above: Result Comment: COMP REHENSIVE METABOLIC PANEL Performed By: #### 2 79293 ####[facility],[address] [place] [address] 61366 CO2 [Moles/Vol] 31.4 mmol/L Normal 21.0 - 32.0 [facility] Comment on above: Performed By: #### 2 29793 ####[facility],[address] [place] [address] 76156 Creatinine [Mass/Vol] 0.82 mg/dL Normal 0.55 - 1.02 [facility] Comment on above: Performed By: #### 2 77725 ####[facility],[address] [place] [address] GFR/1.73 sq M.predicted among non-blacks MDRD (S/P/Bld) [Vol rate/Area] mL/min/{1.73_m2} Normal 60 - 999 [facility] Comment on above: Performed By: #### 2 35433 ####[facility],[address] [place] [address] Result Comment: ACCO RDING TO THE NATIONAL KIDNEY DISEASE EDUCATION PROGRAM(NKDE), A NORMAL eGFRIS A VALUE GREATER THAN OR EQUAL TO 60 ML/MIN/1.73 SQ METERS.CHRONIC KIDNEY DISEASE: <60mL/MIN/1.73 SQ METERSKIDNEY FAILURE: <15mL/MIN/1.73 SQ METERS Globulin (S) [Mass/Vol] 3.6 g/dL Normal 1.5 - 3.8 [facility] Comment on above: Performed By: #### 2 20228 ####[facility],[address] [place] [address] 01314 Glucose [Mass/Vol] 121 mg/dL High 74 - 106 [facility] Comment on above: Performed By: #### 2 00657 ####[facility],[address] [place] [address] 77463 Potassium [Moles/Vol] 3.4 mmol/L Low 3.5 - 5.1 [facility] Comment on above: Performed By: #### 2 90063 ####[facility],[address] [place] [address] 49811 Protein [Mass/Vol] 6.0 g/dL Low 6.4 - 8.2 [facility] Comment on above: Performed By: #### 2 85956 ####[facility],[address] [place] [address] 55767 Sodium [Moles/Vol] 141 mmol/L Normal 136 - 145 [facility] Comment on above: Performed By: #### 2 38503 ####[facility],[address] [place] [address] Urea nitrogen [Mass/Vol] 16 mg/dL Normal 7 - 18 [facility] Comment on above: Performed By: #### 2 47785 ####[facility],[address] [place] [address] CBC + DIFF DAILYon 4 Baso # 0.05 x10EE3/UL Normal 0.00 - 0.10 [facility] Comment on above: Performed By: #### 2 16866 ####[facility],[address] [place] [address] 62655 Basophils/100 WBC (Bld) 0.7 % Normal 0.0 - 2.0 [facility] Comment on above: Performed By: #### 2 93135 ####[facility],[address] [place] [address] 23861 CBC + DIFF DAILY Normal [facility] Comment on above: Result Comment: CBC- COMPLETE BLOOD COUNT Performed By: #### 2 30225 ####[facility],[address] [place] [address] 51484 EO # 0.07 x10EE3/UL Normal 0.00 - 0.50 [facility] Comment on above: Performed By: #### 2 94083 ####[facility],[address] [place] [address] 77341 Eosinophils/100 WBC (Bld) 1.1 % Normal 0.0 - 7.0 [facility] Comment on above: Performed By: #### 2 00289 ####[facility],[address] [place], [place] [phone] Erythrocyte distribution width (RBC) [Ratio] 14.0 % Normal 12.0 - 15.6 [facility] Comment on above: Performed By: #### 2 44024 ####[facility],[address] [place] [address] Hematocrit (Bld) [Volume fraction] 32.5 % Low 34.0 - 46.0 [facility] Comment on above: Performed By: #### 2 01266 ####[facility],[address] [place] [address] Hemoglobin (Bld) [Mass/Vol] 10.8 g/dL Low 12.0 - 16.0 [facility] Comment on above: Performed By: #### 2 69795 ####[facility],[address] [place] [address] Lymph # 1.69 x10EE3/UL Normal 0.80 - 2.80 [facility] Comment on above: Performed By: #### 2 55100 ####[facility],[address] [place] [address] Lymphocytes/100 WBC (Bld) 25.1 % Normal 20.0 - 45.0 [facility] Comment on above: Performed By: #### 2 35635 ####[facility],[address] [place] [address] MANUAL DIFF N/A Normal [facility] Comment on above: Performed By: #### 2 74109 ####[facility],[address] [place] [address] MCH (RBC) [Entitic mass] 31 pg Normal 27 - 33 [facility] Comment on above: Performed By: #### 2 57588 ####[place] [address] MCHC 33 X10 3 Normal 32 - 36 [facility] Comment on above: Performed By: #### 2 50927 ####[facility],[address] [place] [address] MCV (RBC) [Entitic vol] 92 fL Normal 80 - 99 [facility] Comment on above: Performed By: #### 2 01861 ####[facility],[address] [place] [address] [place] # 0.93 x10EE3/UL Normal 0.20 - 1.00 [facility] Comment on above: Performed By: #### 2 29033 ####[facility],[address] [place] [address] MONOS % 13.8 % High 0.0 - 10.0 [facility] Comment on above: Performed By: #### 2 49732 ####[facility],[address] [place] [address] Morphology Dandy (Bld) [Interp] N/A Normal [facility] Comment on above: Performed By: #### 2 07356 ####[facility],[address] [place] [address] Neut # 3.99 x10EE3/UL Normal 1.50 - 7.10 [facility] Comment on above: Performed By: #### 2 60463 ####[place] [address] Neutrophils/100 WBC (Bld) 59.3 % Normal 46.0 - 76.0 [facility] Comment on above: Performed By: #### 2 24962 ####[facility],[address] [place] [address] PLATELET 303 x10EE3/UL Normal 150 - 450 [facility] Comment on above: Performed By: #### 2 91431 ####[place] [address] Platelet mean volume (Bld) [Entitic vol] 7.6 fL Normal 6.6 - 10.5 [facility] Comment on above: Result Comment: AUTO MATED DIFFERENTIAL Performed By: #### 2 89216 ####[facility],[address] [place] [address] 53332 RBC 3.54 x 10EE6/UL Low 4.10 - 5.30 [facility] Comment on above: Performed By: #### 2 71785 ####[facility],[address] [place] [address] 00342 WBC 6.7 x 10EE3/UL Normal 4.5 - 10.8 [facility] Comment on above: Performed By: #### 2 51970 ####[facility],[address] [place] [address] 86687 CMP with eGFR - DAILYon 12-3 AGE 69 years Normal [facility] Comment on above: Performed By: #### 2 61739 ####[facility],[address] [place] [address] 71943 Albumin [Mass/Vol] 2.5 g/dL Low 3.4 - 5.0 [facility] Comment on above: Performed By: #### 2 74014 ####[facility],[address] [place] [address] 99424 Albumin/Globulin [Mass ratio] 0.7 {ratio} Low 0.9 - 1.6 [facility] Comment on above: Performed By: #### 2 85461 ####[facility],[address] [place] [address] 22416 ALK PHOS 103 U/L Normal 46 - 116 [facility] Comment on above: Performed By: #### 2 32357 ####[facility],[address] [place] [address] 28066 ALT [Catalytic activity/Vol] 58 U/L Normal 16 - 63 [facility] Comment on above: Performed By: #### 2 55602 ####[facility],[address] [place] [address] 53247 Anion gap [Moles/Vol] 13 mmol/L Normal 10 - 20 [facility] Comment on above: Performed By: #### 2 52369 ####[facility],[address] [place] [address] 09395 AST [Catalytic activity/Vol] 34 U/L Normal 13 - 39 [facility] Comment on above: Performed By: #### 2 75506 ####[facility],[address] [place] [address] 82983 B/C RATIO 18 ratio Normal 0 - 30 [facility] Comment on above: Performed By: #### 2 71828 ####[facility],[address] [place] [address] 36034 Bilirubin [Mass/Vol] 0.6 mg/dL Normal 0.2 - 1.0 [facility] Comment on above: Performed By: #### 2 78018 ####[facility],[address] [place] [address] 77027 Calcium [Mass/Vol] 8.6 mg/dL Normal 8.5 - 10.1 [facility] Comment on above: Performed By: #### 2 61836 ####[facility],[address] [place] [address] 19371 Chloride [Moles/Vol] 103 mmol/L Normal 98 - 107 [facility] Comment on above: Performed By: #### 2 37225 ####[facility],[address] [place] [address] 31214 CMP with eGFR - DAILY Normal [facility] Comment on above: Result Comment: COMP REHENSIVE METABOLIC PANEL Performed By: #### 2 47238 ####[facility],[address] [place] [address] 64590 CO2 [Moles/Vol] 27.4 mmol/L Normal 21.0 - 32.0 [facility] Comment on above: Performed By: #### 2 29225 ####[facility],[address] [place] [address] 91447 Creatinine [Mass/Vol] 0.84 mg/dL Normal 0.55 - 1.02 [facility] Comment on above: Performed By: #### 2 88213 ####[facility],[address] [place] [address] 13662 GFR/1.73 sq M.predicted among non-blacks MDRD (S/P/Bld) [Vol rate/Area] mL/min/{1.73_m2} Normal 60 - 999 [facility] Comment on above: Performed By: #### 2 91139 ####[facility],[address] [place] [address] Result Comment: ACCO RDING TO THE NATIONAL KIDNEY DISEASE EDUCATION PROGRAM(NKDE), A NORMAL eGFRIS A VALUE GREATER THAN OR EQUAL TO 60 ML/MIN/1.73 SQ METERS.CHRONIC KIDNEY DISEASE: <60mL/MIN/1.73 SQ METERSKIDNEY FAILURE: <15mL/MIN/1.73 SQ METERS Globulin (S) [Mass/Vol] 3.4 g/dL Normal 1.5 - 3.8 [facility] Comment on above: Performed By: #### 2 54537 ####[place] [id number] Glucose [Mass/Vol] 93 mg/dL Normal 74 - 106 [facility] Comment on above: Performed By: #### 2 99424 ####[address] [address] Potassium [Moles/Vol] 2.9 mmol/L Critically low 3.5 - 5.1 [facility] Comment on above: Result Comment: { CA LLED TO MED SURG AT 0738{ READ BACK BY [place] TO CWB Performed By: #### 2 20802 ####[facility],[address] [place] [address] 84871 Protein [Mass/Vol] 5.9 g/dL Low 6.4 - 8.2 [facility] Comment on above: Performed By: #### 2 97795 ####[address] [address] Sodium [Moles/Vol] 140 mmol/L Normal 136 - 145 [facility] Comment on above: Performed By: #### 2 81667 ####[facility],[address] [place] [address] Urea nitrogen [Mass/Vol] 15 mg/dL Normal 7 - 18 [facility] Comment on above: Performed By: #### 2 25836 ####[facility],[address] [place] [address] CV ECHO COMPLETEon CV ECHO COMPLETE Normal [facility] CBC + DIFFon 10-21-2024 Baso # 0.02 x10EE3/UL Normal 0.00 - 0.10 [facility] Comment on above: Performed By: #### 2 81924 ####[facility],[address] [place] [address] Basophils/100 WBC (Bld) 0.3 % Normal 0.0 - 2.0 [facility] Comment on above: Performed By: #### 2 16665 ####[facility],[address] [place] [address] CBC + DIFF Normal [facility] Comment on above: Result Comment: CBC- COMPLETE BLOOD COUNT Performed By: #### 2 72139 ####[facility],[address] [place] [address] EO # 0.09 x10EE3/UL Normal 0.00 - 0.50 [facility] Comment on above: Performed By: #### 2 97069 ####[facility],[address] [place] [address] Eosinophils/100 WBC (Bld) 1.3 % Normal 0.0 - 7.0 [facility] Comment on above: Performed By: #### 2 33789 ####[facility],[address] [place] [address] Erythrocyte distribution width (RBC) [Ratio] 14.3 % Normal 12.0 - 15.6 [facility] Comment on above: Performed By: #### 2 40887 ####[facility],[address] [place] [address] Hematocrit (Bld) [Volume fraction] 32.6 % Low 34.0 - 46.0 [facility] Comment on above: Performed By: #### 2 69721 ####[facility],[address] [place] [address] 89589 Hemoglobin (Bld) [Mass/Vol] 10.9 g/dL Low 12.0 - 16.0 [facility] Comment on above: Performed By: #### 2 78908 ####[facility],[address] [place] [address] Lymph # 1.38 x10EE3/UL Normal 0.80 - 2.80 [facility] Comment on above: Performed By: #### 2 22294 ####[facility],[address] [place], [place] [id number] Lymphocytes/100 WBC (Bld) 19.4 % Low 20.0 - 45.0 [facility] Comment on above: Performed By: #### 2 81507 ####[facility],[address] [place] [address] 66784 MANUAL DIFF N/A Normal [facility] Comment on above: Performed By: #### 2 77865 ####[facility],[address] [place] [address] 57684 MCH (RBC) [Entitic mass] 31 pg Normal 27 - 33 [facility] Comment on above: Performed By: #### 2 01085 ####[facility],[address] [place] [address] 93244 MCHC 34 X10 3 Normal 32 - 36 [facility] Comment on above: Performed By: #### 2 10328 ####[facility],[address] [place] [address] 62946 MCV (RBC) [Entitic vol] 92 fL Normal 80 - 99 [facility] Comment on above: Performed By: #### 2 90346 ####[facility],[address] [place] [address] 22161 [place] # 0.76 x10EE3/UL Normal 0.20 - 1.00 [facility] Comment on above: Performed By: #### 2 51419 ####[facility],[address] [place] [address] 80877 MONOS % 10.7 % High 0.0 - 10.0 [facility] Comment on above: Performed By: #### 2 16622 ####[facility],[address] [place] [address] 80626 Morphology Dandy (Bld) [Interp] N/A Normal [facility] Comment on above: Performed By: #### 2 80104 ####[facility],[address] [place] [address] 83315 Neut # 4.87 x10EE3/UL Normal 1.50 - 7.10 [facility] Comment on above: Performed By: #### 2 95011 ####[facility],[address] [place] [address] 65381 Neutrophils/100 WBC (Bld) 68.4 % Normal 46.0 - 76.0 [facility] Comment on above: Performed By: #### 2 11537 ####[facility],[address] [place] [address] 66336 PLATELET 301 x10EE3/UL Normal 150 - 450 [facility] Comment on above: Performed By: #### 2 70191 ####[facility],[address] [place] [address] 86931 Platelet mean volume (Bld) [Entitic vol] 7.2 fL Normal 6.6 - 10.5 [facility] Comment on above: Result Comment: AUTO MATED DIFFERENTIAL Performed By: #### 2 10248 ####[facility],[address] [place] [address] 24375 RBC 3.56 x 10EE6/UL Low 4.10 - 5.30 [facility] Comment on above: Performed By: #### 2 27452 ####[facility],[address] [place] [address] 24107 WBC 7.1 x 10EE3/UL Normal 4.5 - 10.8 [facility] Comment on above: Performed By: #### 2 60702 ####[facility],[address] [place], [place] [id number] CHEST 1 VIEWon 10-21-2024 CHEST 1 VIEW Normal [facility] CMP with eGFRon 10-21-2024 AGE 69 years Normal [facility] Comment on above: Performed By: #### 2 85303 ####[facility],[address] [place], [place] [id number] Albumin [Mass/Vol] 2.7 g/dL Low 3.4 - 5.0 [facility] Comment on above: Performed By: #### 2 22059 ####[facility],[address] [place], [place] [id number] Albumin/Globulin [Mass ratio] 0.8 {ratio} Low 0.9 - 1.6 [facility] Comment on above: Performed By: #### 2 87760 ####[facility],[address] [place], [place] [id number] ALK PHOS 111 U/L Normal 46 - 116 [facility] Comment on above: Performed By: #### 2 83516 ####[facility],[address] [place] [address] 07447 ALT [Catalytic activity/Vol] 65 U/L High 16 - 63 [facility] Comment on above: Performed By: #### 2 96099 ####[facility],[address] [place] [address] 00474 Anion gap [Moles/Vol] 14 mmol/L Normal 10 - 20 [facility] Comment on above: Performed By: #### 2 67738 ####[facility],[address] [place] [address] 60432 AST [Catalytic activity/Vol] 38 U/L Normal 13 - 39 [facility] Comment on above: Performed By: #### 2 01503 ####[facility],[address] [place] [address] 36716 B/C RATIO 15 ratio Normal 0 - 30 [facility] Comment on above: Performed By: #### 2 60207 ####[facility],[address] [place] [address] 78034 Bilirubin [Mass/Vol] 0.7 mg/dL Normal 0.2 - 1.0 [facility] Comment on above: Performed By: #### 2 09118 ####[facility],[address] [place] [address] 94743 Calcium [Mass/Vol] 8.5 mg/dL Normal 8.5 - 10.1 [facility] Comment on above: Performed By: #### 2 23072 ####[facility],[address] [place], [place] [id number] Chloride [Moles/Vol] 104 mmol/L Normal 98 - 107 [facility] Comment on above: Performed By: #### 2 47863 ####[facility],[address] [place] [address] CMP with eGFR Normal [facility] Comment on above: Result Comment: COMP REHENSIVE METABOLIC PANEL Performed By: #### 2 69643 ####[facility],[address] [place] [address] 26226 CO2 [Moles/Vol] 27.0 mmol/L Normal 21.0 - 32.0 [facility] Comment on above: Performed By: #### 2 27842 ####[facility],[address] [place] [address] 00564 Creatinine [Mass/Vol] 0.78 mg/dL Normal 0.55 - 1.02 [facility] Comment on above: Performed By: #### 2 05856 ####[facility],[address] [place] [address] 80252 GFR/1.73 sq M.predicted among non-blacks MDRD (S/P/Bld) [Vol rate/Area] mL/min/{1.73_m2} Normal 60 - 999 [facility] Comment on above: Performed By: #### 2 54759 ####[facility],[address] [place] [address] Result Comment: ACCO RDING TO THE NATIONAL KIDNEY DISEASE EDUCATION PROGRAM(NKDE), A NORMAL eGFRIS A VALUE GREATER THAN OR EQUAL TO 60 ML/MIN/1.73 SQ METERS.CHRONIC KIDNEY DISEASE: <60mL/MIN/1.73 SQ METERSKIDNEY FAILURE: <15mL/MIN/1.73 SQ METERSTHIS TEST SHOULD ONLY BE USED FOR PATIENTS 18 YEARS OF AGE AND OLDER. Globulin (S) [Mass/Vol] 3.5 g/dL Normal 1.5 - 3.8 [facility] Comment on above: Performed By: #### 2 54500 ####[facility],[address] [place] [address] 56938 Glucose [Mass/Vol] 92 mg/dL Normal 74 - 106 [facility] Comment on above: Performed By: #### 2 22050 ####[facility],[address] [place] [address] 28625 Potassium [Moles/Vol] 3.5 mmol/L Normal 3.5 - 5.1 [facility] Comment on above: Performed By: #### 2 23276 ####[facility],[address] [place] [address] 69137 Protein [Mass/Vol] 6.2 g/dL Low 6.4 - 8.2 [facility] Comment on above: Performed By: #### 2 32241 ####[facility],[address] [place] [address] 84960 Sodium [Moles/Vol] 141 mmol/L Normal 136 - 145 [facility] Comment on above: Performed By: #### 2 91477 ####[facility],[address] [place] [address] Urea nitrogen [Mass/Vol] 12 mg/dL Normal 7 - 18 [facility] Comment on above: Performed By: #### 2 70296 ####[facility],[address] [place] [address] CORONAVIRUS (SARS) ANTIGEN T ESTon 10-21-2024 EXTERNAL QC DONE? YES Normal [facility] Comment on above: Performed By: #### 2 72198 ####[facility],[address] [place] [address] INTERNAL CONTROL PASS Normal [facility] Comment on above: Performed By: #### 2 36939 ####[facility],[address] [place] [address] SARS ANTIGEN Negative Normal NORMAL: NEGATIVE [facility] Comment on above: Performed By: #### 2 54779 ####[facility],[address] [place] [address] SEND TO ? NO Normal [facility] Comment on above: Result Comment: SARS -CoV-2THIS TEST IS BEING USED UNDER THE FDA EUA PROCEDURE. THIS ASSAY HAS BEENVALIDATED AT [facility] FOR USE WITH NASAL AND NASOPHARYNGEAL [...] BECONSIDERED BY HEALTHCARE PROVIDERS IN CONSULTATION WITH [facility]. Performed By: #### 2 66108 ####[facility],[address] [place], [place] [id number] ED MED ADMINISTRATION DETAIL on 10-21-2024 ED MED ADMINISTRATION DETAIL Normal [facility] ED NURSES CLINICAL NOTEon ED NURSES CLINICAL NOTE Normal [facility] ED ORDER SHEET (CPOE ONLY)on 10-21-2024 ED ORDER SHEET (CPOE ONLY) Normal [facility] ED PHYSICIAN CLINICAL REPORT on 10-21-2024 ED PHYSICIAN CLINICAL REPORT Normal [facility] ED PHYSICIAN DISCHARGE REPOR Ton 10-21-2024 ED PHYSICIAN DISCHARGE REPORT Normal [facility] ED SUPER BILLon 10-21-2024 ED SUPER BILL Normal [facility] ED VISIT SUMMARYon ED VISIT SUMMARY Normal [facility] ED VITALS FLOW SHEETon 10-21 ED VITALS FLOW SHEET Normal [facility] INFLUENZA VIRUS RAPID A/Bon 10-21-2024 INFLUENZA VIRUS RAPID A/B Normal [facility] Comment on above: Performed By: #### 2 14412 ####[facility],[address] [place], [place] [id number] NT-proBNPon 10-21-2024 Natriuretic peptide B (Bld) [Mass/Vol] 3719 pg/mL High 0 - 125 [facility] Comment on above: Performed By: #### 2 63249 ####[facility],[address] [place] [address] TROPONINon 10-21-2024 HS TROPONIN 20.1 pg/mL Normal 0.0 - 51.4 [facility] Comment on above: Performed By: #### 2 76901 ####[facility],[address] [place] [address] ED MED ADMINISTRATION DETAIL on 10-10-2024 ED MED ADMINISTRATION DETAIL Normal [facility] ED NURSES CLINICAL NOTEon ED NURSES CLINICAL NOTE Normal [facility] ED ORDER SHEET (CPOE ONLY)on 10-10-2024 ED ORDER SHEET (CPOE ONLY) Normal [facility] ED PHYSICIAN CLINICAL REPORT on 10-10-2024 ED PHYSICIAN CLINICAL REPORT Normal [facility] ED PHYSICIAN DISCHARGE REPOR Ton 10-10-2024 ED PHYSICIAN DISCHARGE REPORT Normal [facility] ED SUPER BILLon 10-10-2024 ED SUPER BILL Normal [facility] ED VISIT SUMMARYon ED VISIT SUMMARY Normal [facility] ED VITALS FLOW SHEETon 10-10 ED VITALS FLOW SHEET Normal [facility] CT BRAIN W/O CONTRASTon 09-22 CT BRAIN W/O CONTRAST Normal [facility] CT CERVICAL W/O CONTRASTon 12-10-2023 CT CERVICAL W/O CONTRAST Normal [facility] CT FACIAL BONES W/O CONTRAST on 10-09-2024 CT FACIAL BONES W/O CONTRAST Normal [facility] BMP with eGFRon 10-06-2024 AGE 69 years Normal [facility] Comment on above: Performed By: #### 2 11583 ####[facility],[address] [place] [address] Anion gap [Moles/Vol] 13 mmol/L Normal 10 - 20 [facility] Comment on above: Performed By: #### 2 86982 ####[facility],[address] [place] [address] 11533 BMP with eGFR Normal [facility] Comment on above: Result Comment: BASI C METABOLIC PANEL Performed By: #### 2 34506 ####[facility],[address] [place] [address] 51275 Calcium [Mass/Vol] 8.5 mg/dL Normal 8.5 - 10.1 [facility] Comment on above: Performed By: #### 2 95972 ####[facility],[address] [place] [address] 62886 Chloride [Moles/Vol] 101 mmol/L Normal 98 - 107 [facility] Comment on above: Performed By: #### 2 51619 ####[facility],[address] [place] [address] 10362 CO2 [Moles/Vol] 27.0 mmol/L Normal 21.0 - 32.0 [facility] Comment on above: Performed By: #### 2 66303 ####[facility],[address] [place] [address] 49000 Creatinine [Mass/Vol] 1.11 mg/dL High 0.55 - 1.02 [facility] Comment on above: Performed By: #### 2 40675 ####[facility],[address] [place] [address] 88647 eGFR 49 ML/MINUTE Low 60 - 999 [facility] Comment on above: Performed By: #### 2 01814 ####[facility],[address] [place] [address] 49971 eGFR(AA) 59 ML/MINUTE Low 60 - 999 [facility] Comment on above: Result Comment: ACCO RDING TO THE NATIONAL KIDNEY DISEASE EDUCATION PROGRAM(NKDE), A NORMAL eGFRIS A VALUE GREATER THAN OR EQUAL TO 60 ML/MIN/1.73 SQ METERS.CHRONIC KIDNEY DISEASE: <60mL/MIN/1.73 SQ METERSKIDNEY FAILURE: <15mL/MIN/1.73 SQ METERSTHIS TEST SHOULD ONLY BE USED FOR PATIENTS 18 YEARS OF AGE AND OLDER. Performed By: #### 2 60436 ####[facility],[address] [place] [address] 83818 Glucose [Mass/Vol] 197 mg/dL High 74 - 106 [facility] Comment on above: Performed By: #### 2 75747 ####[facility],[address] [place] [address] 94622 Potassium [Moles/Vol] 3.7 mmol/L Normal 3.5 - 5.1 [facility] Comment on above: Performed By: #### 2 08711 ####[facility],[address] [place] [address] 74756 Sodium [Moles/Vol] 137 mmol/L Normal 136 - 145 [facility] Comment on above: Performed By: #### 2 30854 ####[address] [address] Urea nitrogen [Mass/Vol] 39 mg/dL High 7 - 18 [facility] Comment on above: Performed By: #### 2 73840 ####[facility],[address] [place] [address] 90003 C-REACTIVE PROTEINon 024 CRP [Mass/Vol] mg/L Normal 0.00 - 0.90 [facility] Comment on above: Performed By: #### 2 83159 ####[address] [address] CBC + DIFFon 10-05-2024 Baso # 0.02 x10EE3/UL Normal 0.00 - 0.10 [facility] Comment on above: Performed By: #### 2 09029 ####[address] [address] Basophils/100 WBC (Bld) 0.2 % Normal 0.0 - 2.0 [facility] Comment on above: Performed By: #### 2 81692 ####[facility],[address] [place] [address] CBC + DIFF Normal [facility] Comment on above: Result Comment: CBC- COMPLETE BLOOD COUNT Performed By: #### 2 92299 ####[facility],[address] [place] [address] EO # 0.04 x10EE3/UL Normal 0.00 - 0.50 [facility] Comment on above: Performed By: #### 2 61436 ####[facility],[address] [place] [address] Eosinophils/100 WBC (Bld) 0.3 % Normal 0.0 - 7.0 [facility] Comment on above: Performed By: #### 2 72565 ####[facility],[address] [place] [address] Erythrocyte distribution width (RBC) [Ratio] 14.3 % Normal 12.0 - 15.6 [facility] Comment on above: Performed By: #### 2 43782 ####[facility],[address] [place] [address] Hematocrit (Bld) [Volume fraction] 37.0 % Normal 34.0 - 46.0 [facility] Comment on above: Performed By: #### 2 52753 ####[facility],[address] [place] [address] Hemoglobin (Bld) [Mass/Vol] 12.0 g/dL Normal 12.0 - 16.0 [facility] Comment on above: Performed By: #### 2 36572 ####[facility],[address] [place], [place] [address] Lymph # 0.94 x10EE3/UL Normal 0.80 - 2.80 [facility] Comment on above: Performed By: #### 2 05076 ####[facility],[address] [place], [place] [address] Lymphocytes/100 WBC (Bld) 8.5 % Low 20.0 - 45.0 [facility] Comment on above: Performed By: #### 2 93694 ####[facility],[address] [place] [address] MANUAL DIFF N/A Normal [facility] Comment on above: Performed By: #### 2 00084 ####[facility],[address] [place] [address] MCH (RBC) [Entitic mass] 30 pg Normal 27 - 33 [facility] Comment on above: Performed By: #### 2 49886 ####[facility],[address] [place] [address] MCHC 33 X10 3 Normal 32 - 36 [facility] Comment on above: Performed By: #### 2 14391 ####[facility],[address] [place] [address] MCV (RBC) [Entitic vol] 92 fL Normal 80 - 99 [facility] Comment on above: Performed By: #### 2 20952 ####[facility],[address] [place] [address] [place] # 0.33 x10EE3/UL Normal 0.20 - 1.00 [facility] Comment on above: Performed By: #### 2 94759 ####[facility],[address] [place] [address] MONOS % 3.0 % Normal 0.0 - 10.0 [facility] Comment on above: Performed By: #### 2 81399 ####[facility],[address] [place] [address] Morphology Dandy (Bld) [Interp] N/A Normal [facility] Comment on above: Performed By: #### 2 60576 ####[facility],[address] [place] [address] Neut # 9.76 x10EE3/UL High 1.50 - 7.10 [facility] Comment on above: Performed By: #### 2 02628 ####[facility],[address] [place] [address] 15991 Neutrophils/100 WBC (Bld) 88.0 % High 46.0 - 76.0 [facility] Comment on above: Performed By: #### 2 57440 ####[facility],[address] [place] [address] 50317 PLATELET 402 x10EE3/UL Normal 150 - 450 [facility] Comment on above: Performed By: #### 2 53238 ####[facility],[address] [place] [address] 48098 Platelet mean volume (Bld) [Entitic vol] 7.2 fL Normal 6.6 - 10.5 [facility] Comment on above: Result Comment: AUTO MATED DIFFERENTIAL Performed By: #### 2 84654 ####[facility],[address] [place] [address] 38095 RBC 4.00 x 10EE6/UL Low 4.10 - 5.30 [facility] Comment on above: Performed By: #### 2 31202 ####[facility],[address] [place] [address] 11026 WBC 11.1 x 10EE3/UL High 4.5 - 10.8 [facility] Comment on above: Performed By: #### 2 96003 ####[facility],[address] [place] [address] 91305 CHEST 1 VIEWon 10-05-2024 CHEST 1 VIEW Normal [facility] CMP with eGFRon 10-05-2024 AGE 69 years Normal [facility] Comment on above: Performed By: #### 2 75823 ####[facility],[address] [place] [address] 24217 Albumin [Mass/Vol] 2.4 g/dL Low 3.4 - 5.0 [facility] Comment on above: Performed By: #### 2 18724 ####[facility],[address] [place] [address] 79427 Albumin/Globulin [Mass ratio] 0.7 {ratio} Low 0.9 - 1.6 [facility] Comment on above: Performed By: #### 2 57993 ####[facility],[address] [place] [address] 46459 ALK PHOS 80 U/L Normal 46 - 116 [facility] Comment on above: Performed By: #### 2 55057 ####[facility],[address] [place] [address] 07144 ALT [Catalytic activity/Vol] 44 U/L Normal 16 - 63 [facility] Comment on above: Performed By: #### 2 46621 ####[facility],[address] [place] [address] 22337 Anion gap [Moles/Vol] 10 mmol/L Normal 10 - 20 [facility] Comment on above: Performed By: #### 2 93348 ####[facility],[address] [place] [address] 77843 AST [Catalytic activity/Vol] 38 U/L Normal 13 - 39 [facility] Comment on above: Performed By: #### 2 47823 ####[facility],[address] [place] [address] 86806 B/C RATIO 29 ratio Normal 0 - 30 [facility] Comment on above: Performed By: #### 2 69130 ####[facility],[address] [place] [address] 61819 Bilirubin [Mass/Vol] 0.3 mg/dL Normal 0.2 - 1.0 [facility] Comment on above: Performed By: #### 2 14414 ####[facility],[address] [place] [address] 59856 Calcium [Mass/Vol] 8.4 mg/dL Low 8.5 - 10.1 [facility] Comment on above: Performed By: #### 2 96671 ####[facility],[address] [place] [address] 99076 Chloride [Moles/Vol] 102 mmol/L Normal 98 - 107 [facility] Comment on above: Performed By: #### 2 67541 ####[facility],[address] [place] [address] 57413 CMP with eGFR Normal [facility] Comment on above: Result Comment: COMP REHENSIVE METABOLIC PANEL Performed By: #### 2 08072 ####[facility],[address] [place], [place] [address] CO2 [Moles/Vol] 29.0 mmol/L Normal 21.0 - 32.0 [facility] Comment on above: Performed By: #### 2 17594 ####[facility],[address] [place] [address] Creatinine [Mass/Vol] 1.22 mg/dL High 0.55 - 1.02 [facility] Comment on above: Performed By: #### 2 21988 ####[facility],[address] [place], [place] [address] eGFR 44 ML/MINUTE Low 60 - 999 [facility] Comment on above: Performed By: #### 2 49217 ####[facility],[address] [place], [place] [address] eGFR(AA) 53 ML/MINUTE Low 60 - 999 [facility] Comment on above: Result Comment: ACCO RDING TO THE NATIONAL KIDNEY DISEASE EDUCATION PROGRAM(NKDE), A NORMAL eGFRIS A VALUE GREATER THAN OR EQUAL TO 60 ML/MIN/1.73 SQ METERS.CHRONIC KIDNEY DISEASE: <60mL/MIN/1.73 SQ METERSKIDNEY FAILURE: <15mL/MIN/1.73 SQ METERSTHIS TEST SHOULD ONLY BE USED FOR PATIENTS 18 YEARS OF AGE AND OLDER. Performed By: #### 2 10722 ####[facility],[address] [place], [place] [id number] Globulin (S) [Mass/Vol] 3.5 g/dL Normal 1.5 - 3.8 [facility] Comment on above: Performed By: #### 2 63570 ####[facility],[address] [place] [address] 11935 Glucose [Mass/Vol] 154 mg/dL High 74 - 106 [facility] Comment on above: Performed By: #### 2 27918 ####[facility],[address] [place] [address] 05761 Potassium [Moles/Vol] 3.7 mmol/L Normal 3.5 - 5.1 [facility] Comment on above: Performed By: #### 2 58537 ####[facility],[address] [place] [address] 83087 Protein [Mass/Vol] 5.9 g/dL Low 6.4 - 8.2 [facility] Comment on above: Performed By: #### 2 44357 ####[facility],[address] [place] [address] 77318 Sodium [Moles/Vol] 137 mmol/L Normal 136 - 145 [facility] Comment on above: Performed By: #### 2 88783 ####[facility],[address] [place] [address] 21836 Urea nitrogen [Mass/Vol] 35 mg/dL High 7 - 18 [facility] Comment on above: Performed By: #### 2 33234 ####[facility],[address] [place] [address] 90660 BMP with eGFRon 10-04-2024 AGE 69 years Normal [facility] Comment on above: Performed By: #### 2 15282 ####[facility],[address] [place] [address] 06626 Anion gap [Moles/Vol] 9 mmol/L Low 10 - 20 [facility] Comment on above: Performed By: #### 2 65456 ####[facility],[address] [place] [address] 93311 BMP with eGFR Normal [facility] Comment on above: Result Comment: BASI C METABOLIC PANEL Performed By: #### 2 47928 ####[facility],[address] [place] [address] 75169 Calcium [Mass/Vol] 8.3 mg/dL Low 8.5 - 10.1 [facility] Comment on above: Performed By: #### 2 01161 ####[facility],[address] [place] [address] 94119 Chloride [Moles/Vol] 99 mmol/L Normal 98 - 107 [facility] Comment on above: Performed By: #### 2 32653 ####[facility],[address] [place] [address] 64488 CO2 [Moles/Vol] 32.2 mmol/L High 21.0 - 32.0 [facility] Comment on above: Performed By: #### 2 35952 ####[facility],[address] [place] [address] 32788 Creatinine [Mass/Vol] 0.97 mg/dL Normal 0.55 - 1.02 [facility] Comment on above: Performed By: #### 2 42861 ####[facility],[address] [place] [address] 14431 eGFR 57 ML/MINUTE Low 60 - 999 [facility] Comment on above: Performed By: #### 2 68060 ####[facility],[address] [place] [address] 68426 GFR/1.73 sq M.predicted among non-blacks MDRD (S/P/Bld) [Vol rate/Area] mL/min/{1.73_m2} Normal 60 - 999 [facility] Comment on above: Result Comment: ACCO RDING TO THE NATIONAL KIDNEY DISEASE EDUCATION PROGRAM(NKDE), A NORMAL eGFRIS A VALUE GREATER THAN OR EQUAL TO 60 ML/MIN/1.73 SQ METERS.CHRONIC KIDNEY DISEASE: <60mL/MIN/1.73 SQ METERSKIDNEY FAILURE: <15mL/MIN/1.73 SQ METERSTHIS TEST SHOULD ONLY BE USED FOR PATIENTS 18 YEARS OF AGE AND OLDER. Performed By: #### 2 30778 ####[facility],[address] [place] [address] 70714 Glucose [Mass/Vol] 159 mg/dL High 74 - 106 [facility] Comment on above: Performed By: #### 2 88994 ####[facility],[address] [place] [address] 52619 Potassium [Moles/Vol] 3.0 mmol/L Low 3.5 - 5.1 [facility] Comment on above: Performed By: #### 2 77610 ####[facility],[address] [place] [address] 51145 Sodium [Moles/Vol] 137 mmol/L Normal 136 - 145 [facility] Comment on above: Performed By: #### 2 85802 ####[address] [address] Urea nitrogen [Mass/Vol] 21 mg/dL High 7 - 18 [facility] Comment on above: Performed By: #### 2 38749 ####[facility],[address] [place] [address] 27551 CBC + DIFFon 10-04-2024 Baso # 0.03 x10EE3/UL Normal 0.00 - 0.10 [facility] Comment on above: Performed By: #### 2 39633 ####[facility],[address] [place] [address] 74600 Basophils/100 WBC (Bld) 0.3 % Normal 0.0 - 2.0 [facility] Comment on above: Performed By: #### 2 93280 ####[facility],[address] [place] [address] 94427 CBC + DIFF Normal [facility] Comment on above: Result Comment: CBC- COMPLETE BLOOD COUNT Performed By: #### 2 55269 ####[facility],[address] [place] [address] 85666 EO # 0.04 x10EE3/UL Normal 0.00 - 0.50 [facility] Comment on above: Performed By: #### 2 61232 ####[facility],[address] [place] [address] 34968 Eosinophils/100 WBC (Bld) 0.3 % Normal 0.0 - 7.0 [facility] Comment on above: Performed By: #### 2 60652 ####[facility],[address] [place] [address] Erythrocyte distribution width (RBC) [Ratio] 14.2 % Normal 12.0 - 15.6 [facility] Comment on above: Performed By: #### 2 70991 ####[facility],[address] [place] [address] Hematocrit (Bld) [Volume fraction] 36.6 % Normal 34.0 - 46.0 [facility] Comment on above: Performed By: #### 2 38866 ####[facility],[address] [place] [address] Hemoglobin (Bld) [Mass/Vol] 12.1 g/dL Normal 12.0 - 16.0 [facility] Comment on above: Performed By: #### 2 85120 ####[facility],[address] [place] [address] 31749 Lymph # 0.61 x10EE3/UL Low 0.80 - 2.80 [facility] Comment on above: Performed By: #### 2 92115 ####[facility],[address] [place], [place] [id number] Lymphocytes/100 WBC (Bld) 4.9 % Low 20.0 - 45.0 [facility] Comment on above: Performed By: #### 2 70332 ####[facility],[address] [place], [place] [id number] MANUAL DIFF N/A Normal [facility] Comment on above: Performed By: #### 2 66965 ####[facility],[address] [place] [address] MCH (RBC) [Entitic mass] 31 pg Normal 27 - 33 [facility] Comment on above: Performed By: #### 2 21686 ####[facility],[address] [place] [address] MCHC 33 X10 3 Normal 32 - 36 [facility] Comment on above: Performed By: #### 2 01945 ####[facility],[address] [place] [address] MCV (RBC) [Entitic vol] 92 fL Normal 80 - 99 [facility] Comment on above: Performed By: #### 2 55775 ####[facility],[address] [place] [address] [place] # 0.19 x10EE3/UL Low 0.20 - 1.00 [facility] Comment on above: Performed By: #### 2 06123 ####[facility],[address] [place] [address] MONOS % 1.5 % Normal 0.0 - 10.0 [facility] Comment on above: Performed By: #### 2 82880 ####[facility],[address] [place] [address] Morphology Dandy (Bld) [Interp] N/A Normal [facility] Comment on above: Performed By: #### 2 85736 ####[facility],[address] [place] [address] Neut # 11.58 x10EE3/UL High 1.50 - 7.10 [facility] Comment on above: Performed By: #### 2 35446 ####[facility],[address] [place] [address] Neutrophils/100 WBC (Bld) 93.0 % High 46.0 - 76.0 [facility] Comment on above: Performed By: #### 2 61830 ####[facility],[address] [place] [address] 76333 PLATELET 379 x10EE3/UL Normal 150 - 450 [facility] Comment on above: Performed By: #### 2 33393 ####[facility],[address] [place] [address] 83066 Platelet mean volume (Bld) [Entitic vol] 7.0 fL Normal 6.6 - 10.5 [facility] Comment on above: Result Comment: AUTO MATED DIFFERENTIAL Performed By: #### 2 84261 ####[facility],[address] [place] [address] 46583 RBC 3.98 x 10EE6/UL Low 4.10 - 5.30 [facility] Comment on above: Performed By: #### 2 44191 ####[facility],[address] [place] [address] 78600 WBC 12.5 x 10EE3/UL High 4.5 - 10.8 [facility] Comment on above: Performed By: #### 2 24716 ####[facility],[address] [place] [address] 19307 ED MED ADMINISTRATION DETAIL on 10-04-2024 ED MED ADMINISTRATION DETAIL Normal [facility] ED NURSES CLINICAL NOTEon ED NURSES CLINICAL NOTE Normal [facility] ED ORDER SHEET (CPOE ONLY)on 10-04-2024 ED ORDER SHEET (CPOE ONLY) Normal [facility] ED PHYSICIAN CLINICAL REPORT on 10-04-2024 ED PHYSICIAN CLINICAL REPORT Normal [facility] ED PHYSICIAN DISCHARGE REPOR Ton 10-04-2024 ED PHYSICIAN DISCHARGE REPORT Normal [facility] ED SUPER BILLon 10-04-2024 ED SUPER BILL Normal [facility] ED VISIT SUMMARYon ED VISIT SUMMARY Normal [facility] ED VITALS FLOW SHEETon 10-04 ED VITALS FLOW SHEET Normal [facility] CBC + DIFFon 10-03-2024 Baso # 0.06 x10EE3/UL Normal 0.00 - 0.10 [facility] Comment on above: Performed By: #### 2 55252 ####[facility],[address] [place] [address] Basophils/100 WBC (Bld) 0.5 % Normal 0.0 - 2.0 [facility] Comment on above: Performed By: #### 2 86561 ####[facility],[address] [place] [address] CBC + DIFF Normal [facility] Comment on above: Result Comment: CBC- COMPLETE BLOOD COUNT Performed By: #### 2 57234 ####[place] [address] EO # 0.29 x10EE3/UL Normal 0.00 - 0.50 [facility] Comment on above: Performed By: #### 2 86762 ####[facility],[address] [place] [address] Eosinophils/100 WBC (Bld) 2.1 % Normal 0.0 - 7.0 [facility] Comment on above: Performed By: #### 2 89167 ####[place] [address] Erythrocyte distribution width (RBC) [Ratio] 14.1 % Normal 12.0 - 15.6 [facility] Comment on above: Performed By: #### 2 44617 ####[facility],[address] [place] [address] Hematocrit (Bld) [Volume fraction] 41.7 % Normal 34.0 - 46.0 [facility] Comment on above: Performed By: #### 2 76668 ####[facility],[address] [place] [address] Hemoglobin (Bld) [Mass/Vol] 13.8 g/dL Normal 12.0 - 16.0 [facility] Comment on above: Performed By: #### 2 42533 ####[facility],[address] [place] [address] Lymph # 5.71 x10EE3/UL High 0.80 - 2.80 [facility] Comment on above: Performed By: #### 2 93076 ####[facility],[address] [place] [address] Lymphocytes/100 WBC (Bld) 41.9 % Normal 20.0 - 45.0 [facility] Comment on above: Performed By: #### 2 87569 ####[facility],[address] [place] [address] MANUAL DIFF N/A Normal [facility] Comment on above: Performed By: #### 2 71023 ####[facility],[address] [place] [address] MCH (RBC) [Entitic mass] 30 pg Normal 27 - 33 [facility] Comment on above: Performed By: #### 2 83722 ####[facility],[address] [place] [address] MCHC 33 X10 3 Normal 32 - 36 [facility] Comment on above: Performed By: #### 2 15909 ####[facility],[address] [place] [address] MCV (RBC) [Entitic vol] 91 fL Normal 80 - 99 [facility] Comment on above: Performed By: #### 2 92467 ####[facility],[address] [place] [address] [place] # 1.18 x10EE3/UL High 0.20 - 1.00 [facility] Comment on above: Performed By: #### 2 01002 ####[facility],[address] [place] [address] MONOS % 8.6 % Normal 0.0 - 10.0 [facility] Comment on above: Performed By: #### 2 43823 ####[facility],[address] [place] [address] Morphology Dandy (Bld) [Interp] N/A Normal [facility] Comment on above: Performed By: #### 2 15038 ####[facility],[address] [place] [address] 31313 Neut # 6.39 x10EE3/UL Normal 1.50 - 7.10 [facility] Comment on above: Performed By: #### 2 79592 ####[facility],[address] [place] [address] Neutrophils/100 WBC (Bld) 46.9 % Normal 46.0 - 76.0 [facility] Comment on above: Performed By: #### 2 04836 ####[facility],[address] [place] [address] PLATELET 475 x10EE3/UL High 150 - 450 [facility] Comment on above: Performed By: #### 2 12190 ####[facility],[address] [place] [address] Platelet mean volume (Bld) [Entitic vol] 7.4 fL Normal 6.6 - 10.5 [facility] Comment on above: Result Comment: AUTO MATED DIFFERENTIAL Performed By: #### 2 78230 ####[facility],[address] [place] [address] 44728 RBC 4.58 x 10EE6/UL Normal 4.10 - 5.30 [facility] Comment on above: Performed By: #### 2 34759 ####[facility],[address] [place] [address] 76195 WBC 13.6 x 10EE3/UL High 4.5 - 10.8 [facility] Comment on above: Performed By: #### 2 33805 ####[facility],[address] [place], [place] [id number] CHEST 1 VIEWon 10-03-2024 CHEST 1 VIEW Normal [facility] CMP with eGFRon 10-03-2024 AGE 69 years Normal [facility] Comment on above: Performed By: #### 2 85169 ####[facility],[address] [place] [address] 18465 Albumin [Mass/Vol] 3.1 g/dL Low 3.4 - 5.0 [facility] Comment on above: Performed By: #### 2 02095 ####[facility],[address] [place] [address] 86683 Albumin/Globulin [Mass ratio] 0.7 {ratio} Low 0.9 - 1.6 [facility] Comment on above: Performed By: #### 2 31650 ####[facility],[address] [place] [address] 38394 ALK PHOS 124 U/L High 46 - 116 [facility] Comment on above: Performed By: #### 2 47709 ####[facility],[address] [place] [address] 23787 ALT [Catalytic activity/Vol] 90 U/L High 16 - 63 [facility] Comment on above: Performed By: #### 2 88193 ####[facility],[address] [place] [address] 24263 Anion gap [Moles/Vol] 13 mmol/L Normal 10 - 20 [facility] Comment on above: Performed By: #### 2 69520 ####[facility],[address] [place] [address] 02988 AST [Catalytic activity/Vol] 126 U/L High 13 - 39 [facility] Comment on above: Performed By: #### 2 39516 ####[facility],[address] [place] [address] 48931 B/C RATIO 15 ratio Normal 0 - 30 [facility] Comment on above: Performed By: #### 2 28298 ####[facility],[address] [place] [address] 94052 Bilirubin [Mass/Vol] 0.5 mg/dL Normal 0.2 - 1.0 [facility] Comment on above: Performed By: #### 2 90607 ####[facility],[address] [place] [address] 53990 Calcium [Mass/Vol] 8.6 mg/dL Normal 8.5 - 10.1 [facility] Comment on above: Performed By: #### 2 44839 ####[facility],[address] [place] [address] 21742 Chloride [Moles/Vol] 97 mmol/L Low 98 - 107 [facility] Comment on above: Performed By: #### 2 32804 ####[facility],[address] [place] [address] 63696 CMP with eGFR Normal [facility] Comment on above: Result Comment: COMP REHENSIVE METABOLIC PANEL Performed By: #### 2 06948 ####[facility],[address] [place] [address] 93870 CO2 [Moles/Vol] 30.3 mmol/L Normal 21.0 - 32.0 [facility] Comment on above: Performed By: #### 2 54017 ####[facility],[address] [place] [address] 59528 Creatinine [Mass/Vol] 1.33 mg/dL High 0.55 - 1.02 [facility] Comment on above: Performed By: #### 2 46044 ####[facility],[address] [place] [address] 16813 eGFR 39 ML/MINUTE Low 60 - 999 [facility] Comment on above: Performed By: #### 2 18290 ####[facility],[address] [place] [address] 41443 eGFR(AA) 48 ML/MINUTE Low 60 - 999 [facility] Comment on above: Result Comment: ACCO RDING TO THE NATIONAL KIDNEY DISEASE EDUCATION PROGRAM(NKDE), A NORMAL eGFRIS A VALUE GREATER THAN OR EQUAL TO 60 ML/MIN/1.73 SQ METERS.CHRONIC KIDNEY DISEASE: <60mL/MIN/1.73 SQ METERSKIDNEY FAILURE: <15mL/MIN/1.73 SQ METERSTHIS TEST SHOULD ONLY BE USED FOR PATIENTS 18 YEARS OF AGE AND OLDER. Performed By: #### 2 27363 ####[facility],[address] [place] [address] 93342 Globulin (S) [Mass/Vol] 4.7 g/dL High 1.5 - 3.8 [facility] Comment on above: Performed By: #### 2 81586 ####[facility],[address] [place] [address] 42399 Glucose [Mass/Vol] 271 mg/dL High 74 - 106 [facility] Comment on above: Performed By: #### 2 53042 ####[facility],[address] [place] [address] 49999 Potassium [Moles/Vol] 3.1 mmol/L Low 3.5 - 5.1 [facility] Comment on above: Performed By: #### 2 33048 ####[facility],[address] [place] [address] 40356 Protein [Mass/Vol] 7.8 g/dL Normal 6.4 - 8.2 [facility] Comment on above: Performed By: #### 2 16470 ####[facility],[address] [place] [address] 69116 Sodium [Moles/Vol] 137 mmol/L Normal 136 - 145 [facility] Comment on above: Performed By: #### 2 32531 ####[facility],[address] [place] [address] 35742 Urea nitrogen [Mass/Vol] 20 mg/dL High 7 - 18 [facility] Comment on above: Performed By: #### 2 75655 ####[facility],[address] [place] [address] 75540 MYCOon 09-08-2023 Mycoplasma IgG equiv Normal [facility] ([place] Comment on above: Result Comment: INTE RPRETATION OF MYCOPLASMA IgG BY EIA: Negative: No detectable M. pneumoniae IgG antibody. Positive: Mycoplasma pneumoniae IgG antibody Detected. Equivocal: Equivocal for IgG antibodies to Mycoplasma pneumoniae. Suggest repeat testing in 10-14 days. Performed By: #### P HOS, TROPHS, MG, CBC, ADIFF, ANEU, MYCO, CMP, CAION, GFR ####[address] [address] .Auto Diffon 09-06-2023 Basophil, Absolute 0.1 10 3/mcL Normal 0.0-0.3 [facility] Comment on above: Performed By: #### A DIFF, MG, ANEU, GFR, CBC, BMP ####[address] [address] Basophils/100 WBC (Bld) 1.5 % Normal 0.0-2.5 [facility] ([place]) Comment on above: Performed By: #### A DIFF, MG, ANEU, GFR, CBC, BMP ####[address] [address] Eosinophil, Absolute 0.4 10 3/mcL Normal 0.0-0.7 [facility] ([place]) Comment on above: Performed By: #### A DIFF, MG, ANEU, GFR, CBC, BMP ####[place] [address] Eosinophils/100 WBC (Bld) 5.4 % Normal 0.0-6.0 [facility] ([place] Comment on above: Performed By: #### A DIFF, MG, ANEU, GFR, CBC, BMP ####[address] [address] Lymphocyte, Absolute 2.0 10 3/mcL Normal 0.9-4.3 [facility] ([place]) Comment on above: Performed By: #### A DIFF, MG, ANEU, GFR, CBC, BMP ####[address] [address] Lymphocytes/100 WBC (Bld) 27.7 % Normal 20.0-40.0 [facility] ([place] Comment on above: Performed By: #### A DIFF, MG, ANEU, GFR, CBC, BMP ####[address] [address] Monocyte, Absolute 0.9 10 3/mcL Normal 0.1-1.4 [facility] [place] Comment on above: Performed By: #### A DIFF, MG, ANEU, GFR, CBC, BMP ####[address] [address] Monocytes/100 WBC (Bld) 13.0 % Normal 2.0-13.0 [facility] ([place]) Comment on above: Performed By: #### A DIFF, MG, ANEU, GFR, CBC, BMP ####[address] [address] Neutrophils/100 WBC (Bld) 52.4 % Normal 50.0-75.0 [facility] ([place] Comment on above: Performed By: #### A DIFF, MG, ANEU, GFR, CBC, BMP ####[address] [address] .GFRon 09-06-2023 GFR Non- >60 Normal [facility] ([place] Comment on above: Result Comment: GFR Population [...] A DIFF, MG, ANEU, GFR, CBC, BMP ####[address] [address] GFR >60 Normal [facility] [place] Comment on above: Result Comment: GFR Population [...] A DIFF, MG, ANEU, GFR, CBC, BMP ####[address] [address] .NEUABSon 09-06-2023 Neutrophil, Absolute 3.7 10 3/mcL Normal 2.3-8.1 [facility] ([place]) Comment on above: Performed By: #### A DIFF, MG, ANEU, GFR, CBC, BMP ####[place] [address] BMPon 09-06-2023 BUN/Creatinine Ratio 22.5 ratio High 10.0-22.0 [facility] [place] Comment on above: Performed By: #### A DIFF, MG, ANEU, GFR, CBC, BMP ####[place] [address] Calcium [Mass/Vol] 8.7 mg/dL Normal 8.7-10.4 [facility] ([place]) Comment on above: Performed By: #### A DIFF, MG, ANEU, GFR, CBC, BMP ####[address] [address] Chloride [Moles/Vol] 101 mmol/L Normal 98-110 [facility] [place] Comment on above: Performed By: #### A DIFF, MG, ANEU, GFR, CBC, BMP ####[address] [address] CO2 [Moles/Vol] 33 mmol/L High 22-32 [facility] ([place] Comment on above: Performed By: #### A DIFF, MG, ANEU, GFR, CBC, BMP ####[address] [address] Creatinine [Mass/Vol] 0.89 mg/dL Normal 0.50-1.20 [facility] ([place]) Comment on above: Performed By: #### A DIFF, MG, ANEU, GFR, CBC, BMP ####[place] [address] Electrolyte Balance 3.0 mEq/L Low 4.0-15.0 [facility] ([place]) Comment on above: Performed By: #### A DIFF, MG, ANEU, GFR, CBC, BMP ####[place] [address] Glucose [Mass/Vol] 100 mg/dL Normal 82-115 [facility] ([place]) Comment on above: Performed By: #### A DIFF, MG, ANEU, GFR, CBC, BMP ####[place] [address] Potassium [Moles/Vol] 3.9 mmol/L Normal 3.5-5.0 [facility] ([place]) Comment on above: Performed By: #### A DIFF, MG, ANEU, GFR, CBC, BMP ####[place] [address] Sodium [Moles/Vol] 137 mmol/L Normal 136-145 [facility] ([place] Comment on above: Performed By: #### A DIFF, MG, ANEU, GFR, CBC, BMP ####[place] [address] Urea nitrogen [Mass/Vol] 20.0 mg/dL Normal 8.0-22.0 [facility] ([place] Comment on above: Performed By: #### A DIFF, MG, ANEU, GFR, CBC, BMP ####[place] [address] CBCon 09-06-2023 Erythrocyte distribution width (RBC) [Ratio] 13.7 % Normal 11.5-15.5 [facility] ([place] Comment on above: Performed By: #### A DIFF, MG, ANEU, GFR, CBC, BMP ####[place] [address] Hematocrit (Bld) [Volume fraction] 39.7 % Normal 34.0-46.0 [facility] ([place] Comment on above: Performed By: #### A DIFF, MG, ANEU, GFR, CBC, BMP ####[place] [address] Hgb 13.5 G/dL Normal 12.0-16.0 [facility] ([place] Comment on above: Performed By: #### A DIFF, MG, ANEU, GFR, CBC, BMP ####[place] [address] MCH (RBC) [Entitic mass] 30.9 pg Normal 27.0-33.0 [facility] ([place] Comment on above: Performed By: #### A DIFF, MG, ANEU, GFR, CBC, BMP ####[place] [address] MCHC 34.0 G/dL Normal 32.0-36.0 [facility] ([place] Comment on above: Performed By: #### A DIFF, MG, ANEU, GFR, CBC, BMP ####[place] [address] MCV (RBC) [Entitic vol] 90.9 fL Normal 80.0-99.0 [facility] ([place]) Comment on above: Performed By: #### A DIFF, MG, ANEU, GFR, CBC, BMP ####[place] [address] Platelet 299 10 3/mcL Normal 150-450 [facility] ([place] Comment on above: Performed By: #### A DIFF, MG, ANEU, GFR, CBC, BMP ####[place] [address] Platelet mean volume (Bld) [Entitic vol] 7.8 fL Normal 6.6-10.5 [facility] ([place] Comment on above: Performed By: #### A DIFF, MG, ANEU, GFR, CBC, BMP ####[place] [address] RBC 4.37 10 6/mcL Normal 4.10-5.30 [facility] ([place] Comment on above: Performed By: #### A DIFF, MG, ANEU, GFR, CBC, BMP ####[facility] [place] [address] 68061 WBC 7.1 10 3/mcL Normal 4.5-10.8 [facility] ([place] Comment on above: Performed By: #### A DIFF, MG, ANEU, GFR, CBC, BMP ####[place] [address] [place] [address] LABORATORYOrdered By: SYSTEM SYSTEM on 09-06-2023 Basophils (Bld) [#/Vol] 0.1 103/mcL Normal 0.0 - 0.3 10^3/mcL AH Workflow SS Basophils/100 WBC (Bld) 1.5 % Normal 0.0 - 2.5 % AH Workflow SS Calcium [Mass/Vol] 8.7 mg/dL Normal 8.7 - 10. 4 mg/dL AH ADM SS Chloride [Moles/Vol] 101 mmol/L Normal 98 - 11 0 mEq/L ADM SS CO2 [Moles/Vol] 33 mmol/L High 22 - 32 mEq/L AH ADM SS Creatinine [Mass/Vol] 0.89 mg/dL Normal 0.50 - 1.20 mg/dL AH ADM SS Electrolyte Balance 3.0 mEq/L Low 4.0 - 15 .0 mEq/L AH ADM SS Eosinophils (Bld) [#/Vol] 0.4 103/mcL Normal 0.0 - 0.7 10^3/mcL AH Workflow SS Eosinophils/100 WBC (Bld) 5.4 % Normal 0.0 - 6.0 % AH Workflow SS Erythrocyte distribution width (RBC) [Ratio] 13.7 % Normal 11.5 - 15.5 % AH [...] mg/dL ADM SS Hematocrit (Bld) [Volume fraction] 39.7 % Normal 34.0 - 46.0 % AH Workflow SS Hemoglobin (Bld) [Mass/Vol] 13.5 G/dL Normal 12.0 - 16.0 G/dL AH Workflow SS Lymphocytes (Bld) [#/Vol] 2.0 103/mcL Normal 0.9 - 4.3 10^3/mcL AH Workflow SS Lymphocytes/100 WBC (Bld) 27.7 % Normal 20.0 - 40.0 % AH Workflow SS Magnesium [Mass/Vol] 2.0 mg/dL Normal 1.6 - 2 .4 mg/dL ADM SS MCH (RBC) [Entitic mass] 30.9 [...] 52.4 % Normal 50.0 - 75.0 % AH Workflow SS Platelet mean volume (Bld) [Entitic vol] 7.8 fL Normal 6.6 - 10.5 fL AH Workflow SS Platelets (Bld) [#/Vol] 299 103/mcL Normal 150 - 450 10^3/mcL AH Workflow SS Potassium [Moles/Vol] 3.9 mmol/L Normal 3.5 - 5.0 mEq/L AH ADM SS RBC (Bld) [#/Vol] 4.37 106/mcL Normal 4.10 - 5.3 0 10^6/mcL AH Workflow SS Sodium [Moles/Vol] 137 mmol/L Normal 136 - 145 mEq/L AH ADM SS Urea nitrogen [Mass/Vol] 20.0 mg/dL Normal 8.0 - 22.0 mg/dL AH ADM SS Urea nitrogen/Creatinine [Mass ratio] 22.5 ratio High 10.0 - 22.0 ratio AH ADM SS WBC (Bld) [#/Vol] 7.1 103/mcL Normal 4.5 - 10.8 10^3/mcL AH Workflow SS MGon 09-06-2023 Magnesium [Mass/Vol] 2.0 mg/dL Normal 1.6-2.4 [facility] Comment on above: Performed By: #### A DIFF, MG, ANEU, GFR, CBC, BMP ####[facility] [place] [address] .Auto Diffon 09-05-2023 Basophil, Absolute 0.2 10 3/mcL Normal 0.0-0.3 [facility] [place] Comment on above: Performed By: #### B G #### [facility] [address] [place] [address] 27360 Basophils/100 WBC (Bld) 2.9 % High 0.0-2.5 [facility] ([place]) Comment on above: Performed By: #### B G #### [address] [address] Eosinophil, Absolute 0.2 10 3/mcL Normal 0.0-0.7 [facility] ([place]) Comment on above: Performed By: #### B G #### [address] [address] Eosinophils/100 WBC (Bld) 2.1 % Normal 0.0-6.0 [facility] ([place]) Comment on above: Performed By: #### B G #### [address] [address] Lymphocyte, Absolute 1.8 10 3/mcL Normal 0.9-4.3 [facility] ([place]) Comment on above: Performed By: #### B G #### [address] [address] Lymphocytes/100 WBC (Bld) 25.1 % Normal 20.0-40.0 [facility] ([place] Comment on above: Performed By: #### B G #### [address] [address] Monocyte, Absolute 1.0 10 3/mcL Normal 0.1-1.4 [facility] [place] Comment on above: Performed By: #### B G #### [address] [address] Monocytes/100 WBC (Bld) 13.7 % High 2.0-13.0 [facility] ([place]) Comment on above: Performed By: #### B G #### [address] [address] Neutrophils/100 WBC (Bld) 56.2 % Normal 50.0-75.0 [facility] ([place] Comment on above: Performed By: #### B G #### [address] [address] .GFRon 09-05-2023 GFR >60 Normal [facility] Comment on above: Result Comment: GFR Population [...] B MP, GFR, ANEU, CBC, MG, ADIFF ####[place] [address] [place] [address] 73757 GFR Non- >60 Normal [facility] ([place] Comment on above: Result Comment: GFR Population [...] B MP, GFR, ANEU, CBC, MG, ADIFF ####[address] [address] .NEUABSon 09-05-2023 Neutrophil, Absolute 3.9 10 3/mcL Normal 2.3-8.1 [facility] ([place] Comment on above: Performed By: #### B G #### [address] [address] BMPon 09-05-2023 BUN/Creatinine Ratio 20.2 ratio Normal 10.0-22.0 [facility] [place] Comment on above: Performed By: #### B G #### [address] [address] Calcium [Mass/Vol] 8.7 mg/dL Normal 8.7-10.4 [facility] ([place] Comment on above: Performed By: #### B G #### [address] [address] Chloride [Moles/Vol] 101 mmol/L Normal 98-110 [facility] [place] Comment on above: Performed By: #### B G #### [address] [address] CO2 [Moles/Vol] 29 mmol/L Normal 22-32 [facility] ([place] Comment on above: Performed By: #### B G #### [address] [address] Creatinine [Mass/Vol] 0.89 mg/dL Normal 0.50-1.20 [facility] ([place] Comment on above: Performed By: #### B G #### [address] [address] Electrolyte Balance 6.0 mEq/L Normal 4.0-15.0 [facility] ([place]) Comment on above: Performed By: #### B G #### [address] [address] Glucose [Mass/Vol] 87 mg/dL Normal 82-115 [facility] ([place] Comment on above: Performed By: #### B G #### [address] [address] Potassium [Moles/Vol] 3.6 mmol/L Normal 3.5-5.0 [facility] ([place] Comment on above: Performed By: #### B G #### [address] [address] Sodium [Moles/Vol] 136 mmol/L Normal 136-145 [facility] ([place] Comment on above: Performed By: #### B G #### [address] [address] Urea nitrogen [Mass/Vol] 18.0 mg/dL Normal 8.0-22.0 [facility] ([place] Comment on above: Performed By: #### B G #### [address] [address] CBCon 09-05-2023 Erythrocyte distribution width (RBC) [Ratio] 13.9 % Normal 11.5-15.5 [facility] ([place] Comment on above: Performed By: #### B G #### [place] [id number] Hematocrit (Bld) [Volume fraction] 36.4 % Normal 34.0-46.0 [facility] [place] Comment on above: Performed By: #### B G #### [place] [id number] Hgb 12.3 G/dL Normal 12.0-16.0 [facility] [place] Comment on above: Performed By: #### B G #### [place] [id number] MCH (RBC) [Entitic mass] 30.7 pg Normal 27.0-33.0 [facility] [place] Comment on above: Performed By: #### B G #### [place] [address] MCHC 33.7 G/dL Normal 32.0-36.0 [facility] [place] Comment on above: Performed By: #### B G #### [place] [id number] MCV (RBC) [Entitic vol] 91.1 fL Normal 80.0-99.0 [facility] ([place] Comment on above: Performed By: #### B G #### [place] [id number] Platelet 278 10 3/mcL Normal 150-450 [facility] [place] Comment on above: Performed By: #### B G #### [place] [id number] Platelet mean volume (Bld) [Entitic vol] 7.5 fL Normal 6.6-10.5 [facility] [place] ([place] Comment on above: Performed By: #### B G #### [place] [id number] RBC 4.00 10 6/mcL Low 4.10-5.30 [facility] [place] Comment on above: Performed By: #### B G #### [facility] [address] [place] [address] WBC 7.0 10 3/mcL Normal 4.5-10.8 [facility] [place] Comment on above: Performed By: #### B G #### [facility] [address] [place] [address] LABORATORYOrdered By: Horace Valdez on 09-05-2023 Blood Glucose Testing Reason Routine (09/05/23 7:27 AM) [facility] Glucose [Mass/Vol] 119 mg/dL High 82 - 115 mg/dL [facility] LABORATORYOrdered By: SYSTEM SYSTEM on 09-05-2023 Basophils (Bld) [#/Vol] 0.2 103/mcL Normal 0.0 - 0.3 10^3/mcL Workflow SS Basophils/100 WBC (Bld) 2.9 % High 0.0 - 2.5 % Workflow SS Calcium [...] 0.2 103/mcL Normal 0.0 - 0.7 10^3/mcL AH Workflow SS Eosinophils/100 WBC (Bld) 2.1 % Normal 0.0 - 6.0 % AH Workflow SS Erythrocyte distribution width (RBC) [Ratio] 13.9 % Normal 11.5 - 15.5 % AH [...] 36.4 % Normal 34.0 - 46.0 % Workflow SS Hemoglobin (Bld) [Mass/Vol] 12.3 G/dL Normal 12.0 - 16.0 G/dL AH Workflow SS Lymphocytes (Bld) [#/Vol] 1.8 103/mcL Normal 0.9 - 4.3 10^3/mcL Workflow SS Lymphocytes/100 WBC (Bld) 25.1 % Normal 20.0 - 40.0 % Workflow SS Magnesium [Mass/Vol] 2.2 mg/dL Normal 1.6 - 2 .4 mg/dL AH ADM SS MCH (RBC) [Entitic mass] 30.7 pg Normal 27.0 - 33.0 pg AH Workflow SS MCHC 33.7 G/dL Normal 32.0 - 36.0 G/dL AH Workflow SS MCV (RBC) [Entitic vol] 91.1 [...] 136 mmol/L Normal 136 - 145 mEq/L AH ADM SS Urea nitrogen [Mass/Vol] 18.0 mg/dL Normal 8.0 - 22.0 mg/dL AH ADM SS Urea nitrogen/Creatinine [Mass ratio] 20.2 ratio Normal 10.0 - 22.0 ratio AH ADM SS WBC (Bld) [#/Vol] 7.0 103/mcL Normal 4.5 - 10.8 10^3/mcL AH Workflow SS MGon 09-05-2023 Magnesium [Mass/Vol] 2.2 mg/dL Normal 1.6-2.4 [facility] [place] Comment [place]: Performed By: #### B MP, GFR, ANEU, CBC, MG, ADIFF ####[place] [address] .Auto Diffon 09-04-2023 Basophil, Absolute 0.1 10 3/mcL Normal 0.0-0.3 [facility] [place] Comment on above: Performed By: #### C MP, GFR, CBC, ANEU, ADIFF ####[address] [address] Basophils/100 WBC (Bld) 1.3 % Normal 0.0-2.5 [facility] ([place] Comment on above: Performed By: #### C MP, GFR, CBC, ANEU, ADIFF ####[address] [address] Eosinophil, Absolute 0.1 10 3/mcL Normal 0.0-0.7 [facility] ([place] Comment on above: Performed By: #### C MP, GFR, CBC, ANEU, ADIFF ####[address] [address] Eosinophils/100 WBC (Bld) 1.0 % Normal 0.0-6.0 [facility] [place] Comment on above: Performed By: #### C MP, GFR, CBC, ANEU, ADIFF ####[address] [address] Lymphocyte, Absolute 1.9 10 3/mcL Normal 0.9-4.3 [facility] ([place] Comment on above: Performed By: #### C MP, GFR, CBC, ANEU, ADIFF ####[address] [address] Lymphocytes/100 WBC (Bld) 23.0 % Normal 20.0-40.0 [facility] [place] Comment on above: Performed By: #### C MP, GFR, CBC, ANEU, ADIFF ####[address] [address] Monocyte, Absolute 1.0 10 3/mcL Normal 0.1-1.4 [facility] [place] Comment [place] above: Performed By: #### C MP, GFR, CBC, ANEU, ADIFF ####[address] [address] Monocytes/100 WBC (Bld) 11.5 % Normal 2.0-13.0 [facility] ([place] Comment on above: Performed By: #### C MP, GFR, CBC, ANEU, ADIFF ####[address] [address] Neutrophils/100 WBC (Bld) 63.2 % Normal 50.0-75.0 [facility] [place] Comment on above: Performed By: #### C MP, GFR, CBC, ANEU, ADIFF ####[address] [address] .GFRon 09-04-2023 GFR >60 Normal [facility] [place] Comment on above: Result Comment: GFR Population [...] #### C MP, GFR, CBC, ANEU, ADIFF ####[address] [address] GFR Non- >60 Normal [facility] [place] Comment [place] above: Result Comment: GFR Population [...] #### C MP, GFR, CBC, ANEU, ADIFF ####[address] [address] .NEUABSon 09-04-2023 Neutrophil, Absolute 5.3 10 3/mcL Normal 2.3-8.1 [facility]) Comment on above: Performed By: #### C MP, GFR, CBC, ANEU, ADIFF ####[address] [address] APTTon 09-04-2023 aPTT Coag (Bld) [Time] 27.4 s Normal 25.0-35.0 [facility] ([place] Comment [place] above: Result Comment: For Heparin anticoagulation therapy, the recommended therapeutic range is: 54-77 seconds (APTT Correlation with Anti-Xa therapeutic range of 0.3-0.7 units/ml). PLEASE REFERENCE THE PHARMACY PROTOCOL FOR DOSING. Heparin dose (APTT) Unknown Normal [facility] ([place] aPTT Coag (Bld) [Time] 46.1 s High 25.0-35.0 [facility] ([place] Comment on above: Result Comment: For Heparin anticoagulation therapy, the recommended therapeutic range is: 54-77 seconds (APTT Correlation with Anti-Xa therapeutic range of 0.3-0.7 units/ml). PLEASE REFERENCE THE PHARMACY PROTOCOL FOR DOSING. Heparin dose (APTT) Heparin IV Normal [facility] [place] aPTT Coag (Bld) [Time] 41.1 s High 25.0-35.0 [facility] ([place] Comment on above: Result Comment: For Heparin anticoagulation therapy, the recommended therapeutic range is: 54-77 seconds (APTT Correlation with Anti-Xa therapeutic range of 0.3-0.7 units/ml). PLEASE REFERENCE THE PHARMACY PROTOCOL FOR DOSING. Heparin dose (APTT) Heparin IV Normal [facility] ([place]) CBCon 09-04-2023 Erythrocyte distribution width (RBC) [Ratio] 14.0 % Normal 11.5-15.5 [facility] [place] Comment on above: Performed By: #### C MP, GFR, CBC, ANEU, ADIFF ####[address] [address] Hematocrit (Bld) [Volume fraction] 37.8 % Normal 34.0-46.0 [facility] [place] Comment on above: Performed By: #### C MP, GFR, CBC, ANEU, ADIFF ####[place] [address] Hgb 12.8 G/dL Normal 12.0-16.0 [facility] [place] Comment on above: Performed By: #### C MP, GFR, CBC, ANEU, ADIFF ####[place] [address] MCH (RBC) [Entitic mass] 30.7 pg Normal 27.0-33.0 [facility] [place] Comment on above: Performed By: #### C MP, GFR, CBC, ANEU, ADIFF ####[place] [address] MCHC 33.9 G/dL Normal 32.0-36.0 [facility] [place] Comment on above: Performed By: #### C MP, GFR, CBC, ANEU, ADIFF ####[place] [address] MCV (RBC) [Entitic vol] 90.6 fL Normal 80.0-99.0 [facility] [place] Comment on above: Performed By: #### C MP, GFR, CBC, ANEU, ADIFF ####[place] [address] Platelet 281 10 3/mcL Normal 150-450 [facility] [place] Comment on above: Performed By: #### C MP, GFR, CBC, ANEU, ADIFF ####[place] [address] Platelet mean volume (Bld) [Entitic vol] 7.6 fL Normal 6.6-10.5 [facility] [place] Comment on above: Performed By: #### C MP, GFR, CBC, ANEU, ADIFF ####[place] [address] RBC 4.17 10 6/mcL Normal 4.10-5.30 [facility] [place] Comment on above: Performed By: #### C MP, GFR, CBC, ANEU, ADIFF ####[address] [address] WBC 8.5 10 3/mcL Normal 4.5-10.8 [facility] [place] Comment on above: Performed By: #### C MP, GFR, CBC, ANEU, ADIFF ####[address] [address] CMPon 09-04-2023 Albumin Level 3.3 G/dL Normal 3.2-4.8 [facility] [place] Comment on above: Performed By: #### C MP, GFR, CBC, ANEU, ADIFF ####[place] [address] Albumin/Globulin [Mass ratio] 1.0 {ratio} Normal 0.9-1.6 [facility] [place] Comment [place] above: Performed By: #### C MP, GFR, CBC, ANEU, ADIFF ####[place] [address] ALP [Catalytic activity/Vol] 95 U/L Normal 38-126 [facility] [place] Comment on above: Performed By: #### C MP, GFR, CBC, ANEU, ADIFF ####[place] [address] ALT [Catalytic activity/Vol] 103 U/L High 10-49 [facility] [place] Comment on above: Performed By: #### C MP, GFR, CBC, ANEU, ADIFF ####[place] [address] AST [Catalytic activity/Vol] 64 U/L High 8-34 [facility] [place] Comment on above: Performed By: #### C MP, GFR, CBC, ANEU, ADIFF ####[place] [address] Bili Total 1.00 mg/dL Normal 0.20-1.20 [facility] [place] Comment on above: Result Comment: Use of this assay is not recommended for patients undergoing treatment with eltrombopag due to the potential for falsely elevated results. Performed By: #### C MP, GFR, CBC, ANEU, ADIFF ####[place] [address] BUN/Creatinine Ratio 23.1 ratio High 10.0-22.0 [facility] [place] Comment on above: Performed By: #### C MP, GFR, CBC, ANEU, ADIFF ####[address] [address] Calcium [Mass/Vol] 9.0 mg/dL Normal 8.7-10.4 [facility] ([place] Comment on above: Performed By: #### C MP, GFR, CBC, ANEU, ADIFF ####[place] [address] Chloride [Moles/Vol] 100 mmol/L Normal 98-110 [facility] [place] Comment [place] above: Performed By: #### C MP, GFR, CBC, ANEU, ADIFF ####[place] [id number] CO2 [Moles/Vol] 30 mmol/L Normal 22-32 [facility] [place] Comment on above: Performed By: #### C MP, GFR, CBC, ANEU, ADIFF ####[place] [address] Creatinine [Mass/Vol] 0.78 mg/dL Normal 0.50-1.20 [facility] [place] Comment on above: Performed By: #### C MP, GFR, CBC, ANEU, ADIFF ####[place] [address] Electrolyte Balance 3.0 mEq/L Low 4.0-15.0 [facility] ([place] Comment on above: Performed By: #### C MP, GFR, CBC, ANEU, ADIFF ####[place] [id number] Globulin 3.4 G/dL Normal 1.5-3.8 [facility] [place] Comment on above: Performed By: #### C MP, GFR, CBC, ANEU, ADIFF ####[place] [address] Glucose [Mass/Vol] 134 mg/dL High 82-115 [facility] ([place] Comment on above: Performed By: #### C MP, GFR, CBC, ANEU, ADIFF ####[place] [address] [place] [address] Potassium [Moles/Vol] 3.1 mmol/L Low 3.5-5.0 [facility] [place] Comment on above: Performed By: #### C MP, GFR, CBC, ANEU, ADIFF ####[address] [address] Sodium [Moles/Vol] 133 mmol/L Low 136-145 [facility] [place] Comment on above: Performed By: #### C MP, GFR, CBC, ANEU, ADIFF ####[address] [address] Total Protein 6.7 G/dL Normal 5.7-8.2 [facility] [place] Comment on above: Result Comment: No te - New Reference Range in effect 20 Performed By: #### C MP, GFR, CBC, ANEU, ADIFF ####[address] [address] Urea nitrogen [Mass/Vol] 18.0 mg/dL Normal 8.0-22.0 [facility] [place] Comment on above: Performed By: #### C MP, GFR, CBC, ANEU, ADIFF ####[address] [address] LABORATORYOrdered By: Pee Cerna on 09-04-2023 Blood Glucose Testing Reason Routine (09/04/23 9:00 PM) [facility] Glucose [Mass/Vol] 98 mg/dL Normal 82 - 115 mg/dL [facility] LABORATORYOrdered By: Carolynn Weston on 09-04-2023 aPTT Coag (Bld) [Time] 27.4 s Normal 25.0 - 35.0 seconds AH HemoHub SS [...] Glucose Testing Reason Routine (09/04/23 4:19 PM) [facility] Glucose [Mass/Vol] 97 mg/dL Normal 82 - 115 mg/dL [facility] LABORATORYOrdered By: SYSTEM SYSTEM on 09-04-2023 Albumin BCP dye [Mass/Vol] 3.3 G/dL Normal 3.2 - 4.8 G/dL ADM SS Albumin/Globulin [Mass ratio] 1.0 {ratio} Normal 0.9 - 1.6 ratio AH ADM SS ALP [Catalytic activity/Vol] 95 U/L Normal 38 - 126 U/L ADM SS ALT No additional P-5'-P [Catalytic activity/Vol] 103 U/L High 10 - 49 U/L AH ADM SS AST [Catalytic activity/Vol] 64 U/L High 8 - 34 U/L AH ADM SS Basophils (Bld) [#/Vol] 0.1 103/mcL Normal 0.0 - 0.3 10^3/mcL AH Workflow SS Basophils/100 WBC (Bld) 1.3 % [...] 4 mg/dL AH ADM SS Chloride [Moles/Vol] 100 mmol/L Normal 98 - 11 0 mEq/L AH ADM SS CO2 [Moles/Vol] 30 mmol/L Normal 22 - 32 mEq/L AH ADM SS Creatinine [Mass/Vol] 0.78 mg/dL Normal 0.50 - 1.20 mg/dL AH ADM SS Electrolyte Balance 3.0 mEq/L Low 4.0 - 15 .0 mEq/L ADM SS Eosinophils (Bld) [#/Vol] 0.1 103/mcL Normal 0.0 - 0.7 10^3/mcL Workflow SS Eosinophils/100 WBC (Bld) 1.0 % Normal 0.0 - 6.0 % Workflow Erythrocyte distribution width (RBC) [Ratio] 14.0 % Normal 11.5 - 15.5 % Workflow GFR/1.73 sq M.predicted among blacks MDRD (S/P/Bld) [Vol rate/Area] ml/min/1.73sqm Invalid Interpretation Code [facility] Comment on above: Interpretive Data: GFR Population [...] (S/P/Bld) [Vol rate/Area] ml/min/1.73sqm Invalid Interpretation Code [facility] Comment on above: Interpretive Data: GFR Population [...] 3.4 G/dL Normal 1.5 - 3.8 G/dL [facility] Glucose [Mass/Vol] 134 mg/dL High 82 - [...] 18.0 mg/dL Normal 8.0 - 22.0 mg/dL ADM SS Urea nitrogen/Creatinine [Mass ratio] 23.1 ratio High 10.0 - 22.0 ratio AH ADM SS WBC (Bld) [#/Vol] 8.5 103/mcL Normal 4.5 - 10.8 10^3/mcL AH Workflow SS LABORATORYOrdered By: Marcell Wakefield on 09-04-2023 aPTT Coag (Bld) [Time] 46.1 s High 25.0 - 35.0 seconds [facility] SS Comment on above: Interpretive Data: F or Heparin anticoagulation therapy, the recommended therapeutic range is: 54-77 seconds (APTT Correlation with Anti-Xa therapeutic range of 0.3-0.7 units/ml). PLEASE REFERENCE THE PHARMACY PROTOCOL FOR DOSING. Heparin dose (APTT) Heparin IV (09/04/23 8:55 AM) Normal Coagulation S LABORATORYOrdered By: Will Boss on 09-04-2023 aPTT Coag (Bld) [Time] 41.1 s High 25.0 - 35.0 seconds [facility] SS Comment on above: Interpretive Data: F or Heparin anticoagulation therapy, the recommended therapeutic range is: 54-77 seconds (APTT Correlation with Anti-Xa therapeutic range of 0.3-0.7 units/ml). PLEASE REFERENCE THE PHARMACY PROTOCOL FOR DOSING. Heparin dose (APTT) Heparin IV (09/04/23 1:16 AM) [facility] Mycoplasma IgM Negative Normal [facility] [place] Comment [place]: Result Comment: INTE RPRETATION [...] CBC, ADIFF, ANEU, MYCO, CMP, CAION, GFR ####[address] [address] XR CHEST 1 VIEWon 09-04-2023 XR CHEST [...] Date: 09/04/2023 6:42:09 AM Ordering Provider: FEDERICA Soto [facility] [place] ([place] .Auto Diffon 09-03-2023 Basophil, Absolute 0.1 10 3/mcL Normal 0.0-0.3 [facility] [place] Comment on above: Performed By: #### T ROPHS, MG, LAC, GFR, CBC, CMP, ADIFF, ANEU ####[address] [address] Basophils/100 WBC (Bld) 0.6 % Normal 0.0-2.5 [facility] ([place] Comment on above: Performed By: #### T ROPHS, MG, LAC, GFR, CBC, CMP, ADIFF, ANEU ####[address] [address] Eosinophil, Absolute 0.0 10 3/mcL Normal 0.0-0.7 [facility] ([place] Comment on above: Performed By: #### T ROPHS, MG, LAC, GFR, CBC, CMP, ADIFF, ANEU ####[address] [address] Eosinophils/100 WBC (Bld) 0.2 % Normal 0.0-6.0 [facility] [place] Comment on above: Performed By: #### T ROPHS, MG, LAC, GFR, CBC, CMP, ADIFF, ANEU ####[address] [address] Lymphocyte, Absolute 2.0 10 3/mcL Normal 0.9-4.3 [facility] ([place] Comment on above: Performed By: #### T ROPHS, MG, LAC, GFR, CBC, CMP, ADIFF, ANEU ####[address] [address] Lymphocytes/100 WBC (Bld) 20.9 % Normal 20.0-40.0 [facility] [place] Comment on above: Performed By: #### T ROPHS, MG, LAC, GFR, CBC, CMP, ADIFF, ANEU ####[address] [address] Monocyte, Absolute 1.1 10 3/mcL Normal 0.1-1.4 [facility] [place] Comment on above: Performed By: #### T ROPHS, MG, LAC, GFR, CBC, CMP, ADIFF, ANEU ####[address] [address] Monocytes/100 WBC (Bld) 10.8 % Normal 2.0-13.0 [facility] ([place]) Comment on above: Performed By: #### T ROPHS, MG, LAC, GFR, CBC, CMP, ADIFF, ANEU ####[address] [address] Neutrophils/100 WBC (Bld) 67.5 % Normal 50.0-75.0 [facility] [place] Comment on above: Performed By: #### T ROPHS, MG, LAC, GFR, CBC, CMP, ADIFF, ANEU ####[address] [address] .GFRon 09-03-2023 GFR >60 Normal [facility] [place] Comment on above: Result Comment: GFR Population [...] meters Performed By: #### B G #### [address] [address] GFR Non- 56 ml/min/1.73sqm Normal [facility] [place] Comment on above: Result Comment: GFR Population [...] meters Performed By: #### B G #### [address] [address] .NEUABSon 09-03-2023 Neutrophil, Absolute 6.6 10 3/mcL Normal 2.3-8.1 [facility] ([place] Comment on above: Performed By: #### T ROPHS, MG, LAC, GFR, CBC, CMP, ADIFF, ANEU ####[address] [address] APTTon 09-03-2023 aPTT Coag (Bld) [Time] 44.3 s High 25.0-35.0 [facility] ([place] Comment on above: Result Comment: For Heparin anticoagulation therapy, the recommended therapeutic range is: 54-77 seconds (APTT Correlation with Anti-Xa therapeutic range of 0.3-0.7 units/ml). PLEASE REFERENCE THE PHARMACY PROTOCOL FOR DOSING. Heparin dose (APTT) Heparin IV Normal [facility] [place] aPTT Coag (Bld) [Time] 45.1 s High 25.0-35.0 [facility] ([place] Comment on above: Result Comment: For Heparin anticoagulation therapy, the recommended therapeutic range is: 54-77 seconds (APTT Correlation with Anti-Xa therapeutic range of 0.3-0.7 units/ml). PLEASE REFERENCE THE PHARMACY PROTOCOL FOR DOSING. Heparin dose (APTT) Heparin IV Normal [facility] ([place]) BGon 09-03-2023 Barometric Pressure 715 mmHg Normal [facility] ([place] Comment on above: Performed By: #### L AC #### [address] [address] Base excess Calc (Bld) [Moles/Vol] 7.6 mmol/L Normal [facility] [place] ([place] Comment on above: Performed By: #### L AC #### [address] [address] CO2 [Moles/Vol] 30.7 mmol/L High 22.0-30.0 [facility] [place] Comment on above: Performed By: #### L AC #### [address] [address] HCO3 (Bld) [Moles/Vol] 29.7 mmol/L High 21.0-29.0 [facility] [place] Comment on above: Performed By: #### L AC #### [address] [address] Oxygen (Bld) [Partial pressure] 65.0 mm[Hg] Low 74.0-108.0 [facility] [place] Comment on above: Performed By: #### L AC #### [address] [address] Oxygen saturation in Blood 94.0 % Normal 92.0-96.0 [facility] [place] Comment on above: Performed By: #### L AC #### [address] [address] pCO2 33.3 mmHg Normal 32.0-46.0 [facility] [place] Comment on above: Performed By: #### L AC #### [address] [address] pH (Bld) 7.568 [pH] High 7.380-7.460 [facility] [place] Comment on above: Performed By: #### L AC #### [address] [address] Barometric Pressure 720 mmHg Normal [facility] ([place] Comment on above: Performed By: #### B G ####[address] [address] Base excess Calc (Bld) [Moles/Vol] 7.2 mmol/L Normal [facility] [place] Comment on above: Performed By: #### B G ####[address] [address] CO2 [Moles/Vol] 32.5 mmol/L High 22.0-30.0 [facility] [place] Comment on above: Performed By: #### B G ####[address] [address] HCO3 (Bld) [Moles/Vol] 31.2 mmol/L High 21.0-29.0 [facility] [place] Comment on above: Performed By: #### B G ####[place] [id number] Oxygen (Bld) [Partial pressure] 86.0 mm[Hg] Normal 74.0-108.0 [facility] [place] Comment on above: Performed By: #### B G ####[address] [address] Oxygen saturation in Blood 96.7 % High 92.0-96.0 [facility] [place] Comment on above: Performed By: #### B G ####[address] [address] pCO2 41.9 mmHg Normal 32.0-46.0 [facility] [place] Comment on above: Performed By: #### B G ####[place] [id number] [place] [address] pH (Bld) 7.490 [pH] High 7.380-7.460 [facility] [place] Comment on above: Performed By: #### B G ####[place] [id number] CBCon 09-03-2023 Erythrocyte distribution width (RBC) [Ratio] 14.6 % Normal 11.5-15.5 [facility] [place] Comment on above: Performed By: #### T ROPHS, MG, LAC, GFR, CBC, CMP, ADIFF, ANEU ####[place] [address] Hematocrit (Bld) [Volume fraction] 36.6 % Normal 34.0-46.0 [facility] [place] Comment on above: Performed By: #### T ROPHS, MG, LAC, GFR, CBC, CMP, ADIFF, ANEU ####[place] [address] Hgb 12.3 G/dL Normal 12.0-16.0 [facility] [place] Comment on above: Performed By: #### T ROPHS, MG, LAC, GFR, CBC, CMP, ADIFF, ANEU ####[place] [address] MCH (RBC) [Entitic mass] 30.3 pg Normal 27.0-33.0 [facility] [place] Comment on above: Performed By: #### T ROPHS, MG, LAC, GFR, CBC, CMP, ADIFF, ANEU ####[place] [address] MCHC 33.5 G/dL Normal 32.0-36.0 [facility] [place] Comment on above: Performed By: #### T ROPHS, MG, LAC, GFR, CBC, CMP, ADIFF, ANEU ####[place] [address] MCV (RBC) [Entitic vol] 90.2 fL Normal 80.0-99.0 [facility] [place] Comment on above: Performed By: #### T ROPHS, MG, LAC, GFR, CBC, CMP, ADIFF, ANEU ####[place] [address] Platelet 274 10 3/mcL Normal 150-450 [facility] [place] Comment on above: Performed By: #### T ROPHS, MG, LAC, GFR, CBC, CMP, ADIFF, ANEU ####[address] [address] Platelet mean volume (Bld) [Entitic vol] 7.7 fL Normal 6.6-10.5 [facility] [place] Comment on above: Performed By: #### T ROPHS, MG, LAC, GFR, CBC, CMP, ADIFF, ANEU ####[place] [address] RBC 4.05 10 6/mcL Low 4.10-5.30 [facility] [place] Comment on above: Performed By: #### T ROPHS, MG, LAC, GFR, CBC, CMP, ADIFF, ANEU ####[place] [address] WBC 9.8 10 3/mcL Normal 4.5-10.8 [facility] [place] Comment on above: Performed By: #### T ROPHS, MG, LAC, GFR, CBC, CMP, ADIFF, ANEU ####[place] [address] CMPon 09-03-2023 Albumin Level 2.8 G/dL Low 3.2-4.8 [facility] [place] Comment on above: Performed By: #### B G #### [place] [address] Albumin/Globulin [Mass ratio] 1.0 {ratio} Normal 0.9-1.6 [facility] [place] Comment on above: Performed By: #### B G #### [place] [address] ALP [Catalytic activity/Vol] 98 U/L Normal 38-126 [facility] [place] Comment on above: Performed By: #### B G #### [place] [id number] ALT [Catalytic activity/Vol] 138 U/L High 10-49 [facility] [place] Comment on above: Performed By: #### B G #### [place] [address] AST [Catalytic activity/Vol] 92 U/L High 8-34 [facility] [place] Comment on above: Performed By: #### B G #### [address] [address] Bili Total 0.60 mg/dL Normal 0.20-1.20 [facility] [place] Comment on above: Result Comment: Use of this assay is not recommended for patients undergoing treatment with eltrombopag due to the potential for falsely elevated results. Performed By: #### B G #### [place] [id number] BUN/Creatinine Ratio 27.6 ratio High 10.0-22.0 [facility] [place] Comment on above: Performed By: #### B G #### [place] [id number] Calcium [Mass/Vol] 8.5 mg/dL Low 8.7-10.4 [facility] ([place] Comment on above: Performed By: #### B G #### [place] [id number] Chloride [Moles/Vol] 105 mmol/L Normal 98-110 [facility] [place] Comment on above: Performed By: #### B G #### [place] [id number] CO2 [Moles/Vol] 31 mmol/L Normal 22-32 [facility] [place] Comment on above: Performed By: #### B G #### [place] [id number] Creatinine [Mass/Vol] 0.98 mg/dL Normal 0.50-1.20 [facility] ([place] Comment on above: Performed By: #### B G #### [address] [address] Electrolyte Balance 4.0 mEq/L Normal 4.0-15.0 [facility] ([place] Comment on above: Performed By: #### B G #### [place] [id number] Globulin 2.9 G/dL Normal 1.5-3.8 [facility] [place] Comment on above: Performed By: #### B G #### [place] [id number] [place] [address] Glucose [Mass/Vol] 110 mg/dL Normal 82-115 [facility] ([place] Comment on above: Performed By: #### B G #### [address] [address] Potassium [Moles/Vol] 3.8 mmol/L Normal 3.5-5.0 [facility] ([place]) Comment on above: Performed By: #### B G #### [address] [address] Sodium [Moles/Vol] 140 mmol/L Normal 136-145 [facility] ([place]) Comment on above: Performed By: #### B G #### [address] [address] Total Protein 5.7 G/dL Normal 5.7-8.2 [facility] ([place]) Comment on above: Result Comment: No te - New Reference Range in effect 20 Performed By: #### B G #### [address] [address] Urea nitrogen [Mass/Vol] 27.0 mg/dL High 8.0-22.0 [facility] ([place] Comment on above: Performed By: #### B G #### [address] [address] LABORATORYOrdered By: Ariadna Estes on 09-03-2023 Barometric Pressure 715 mm[Hg] Invalid Interpretation Code AH Auto Chem SS Base excess Calc (Bld) [Moles/Vol] 7.6 mmol/L Invalid Interpretation Code Auto Chem SS CO2 (Bld) [Partial pressure] 33.3 mm[Hg] Normal 32.0 - 46.0 mm Hg AH Auto Chem SS CO2 [Moles/Vol] 30.7 mmol/L High 22.0 - 30.0 mmol/L AH Auto Chem SS HCO3 (Bld) [Moles/Vol] 29.7 mmol/L High 21.0 - 29.0 mmol/L AH Auto Chem [...] Hg AH Auto Chem SS CO2 [Moles/Vol] 32.5 mmol/L High 22.0 - 30.0 mmol/L AH Auto Chem SS HCO3 (Bld) [Moles/Vol] 31.2 mmol/L High 21.0 - 29.0 mmol/L Auto Chem SS Oxygen (Bld) [Partial pressure] 86.0 mm[Hg] Normal 74.0 - 108.0 mm Hg Auto Chem SS pH (Bld) 7.490 [pH] [...] 0.60 mg/dL Normal 0.20 - 1.20 mg/dL ADM [...] Lactic Acid Lvl 1.6 mmol/L Normal 0.2-2.0 [facility] [place] Comment [place] above: Performed By: #### B G #### [address] [address] MGon 09-03-2023 Magnesium [Mass/Vol] 2.3 mg/dL Normal 1.6-2.4 [facility] [place] Comment [place]: Performed By: #### B G #### [address] [address] TROPHSon 09-03-2023 Troponin I High Sensitivity 1793.02 ng/L High 0.00-34.00 [facility] [place] Comment on above: Performed By: #### B G #### [address] [address] Troponin I High Sensitivity 2219.13 ng/L High 0.00-34.00 [facility] [place] Comment on above: Performed By: #### B G #### [address] [address] .Auto Diffon 09-02-2023 Basophil, Absolute 0.0 10 3/mcL Normal 0.0-0.3 [facility] [place] Comment [place]: Performed By: #### L AC #### [address] [address] Basophils/100 WBC (Bld) 0.6 % Normal 0.0-2.5 [facility] ([place]) Comment on above: Performed By: #### L AC #### [address] [address] Eosinophil, Absolute 0.0 10 3/mcL Normal 0.0-0.7 [facility] ([place]) Comment on above: Performed By: #### L AC #### [address] [address] Eosinophils/100 WBC (Bld) 0.0 % Normal 0.0-6.0 [facility] [place] Comment on above: Performed By: #### L AC #### [address] [address] Lymphocyte, Absolute 0.6 10 3/mcL Low 0.9-4.3 [facility] [place] Comment on above: Performed By: #### L AC #### [address] [address] Lymphocytes/100 WBC (Bld) 8.0 % Low 20.0-40.0 [facility] [place] Comment [place] above: Performed By: #### L AC #### [address] [address] Monocyte, Absolute 0.2 10 3/mcL Normal 0.1-1.4 [facility] [place] Comment [place] above: Performed By: #### L AC #### [address] [address] Monocytes/100 WBC (Bld) 2.7 % Normal 2.0-13.0 [facility] [place] Comment [place] above: Performed By: #### L AC #### [address] [address] Neutrophils/100 WBC (Bld) 88.7 % High 50.0-75.0 [facility] [place] Comment [place] above: Performed By: #### L AC #### [address] [address] Basophil, Absolute 0.0 10 3/mcL Normal 0.0-0.3 [facility] [place] Comment [place] above: Performed By: #### P HOS, TROPHS, MG, CBC, ADIFF, ANEU, MYCO, CMP, CAION, GFR ####[address] [address] Basophils/100 WBC (Bld) 0.4 % Normal 0.0-2.5 [facility] [place] Comment on above: Performed By: #### P HOS, TROPHS, MG, CBC, ADIFF, ANEU, MYCO, CMP, CAION, GFR ####[address] [address] Eosinophil, Absolute 0.0 10 3/mcL Normal 0.0-0.7 [facility] ([place]) Comment on above: Performed By: #### P HOS, TROPHS, MG, CBC, ADIFF, ANEU, MYCO, CMP, CAION, GFR ####[address] [address] Eosinophils/100 WBC (Bld) 0.0 % Normal 0.0-6.0 [facility] [place] Comment [place] above: Performed By: #### P HOS, TROPHS, MG, CBC, ADIFF, ANEU, MYCO, CMP, CAION, GFR ####[address] [address] Lymphocyte, Absolute 0.3 10 3/mcL Low 0.9-4.3 [facility] ([place] Comment on above: Performed By: #### P HOS, TROPHS, MG, CBC, ADIFF, ANEU, MYCO, CMP, CAION, GFR ####[address] [address] Lymphocytes/100 WBC (Bld) 3.6 % Low 20.0-40.0 [facility] [place] Comment [place] above: Performed By: #### P HOS, TROPHS, MG, CBC, ADIFF, ANEU, MYCO, CMP, CAION, GFR ####[address] [address] Monocyte, Absolute 0.2 10 3/mcL Normal 0.1-1.4 [facility] [place] Comment [place] above: Performed By: #### P HOS, TROPHS, MG, CBC, ADIFF, ANEU, MYCO, CMP, CAION, GFR ####[address] [address] Monocytes/100 WBC (Bld) 1.9 % Low 2.0-13.0 [facility] [place] Comment on above: Performed By: #### P HOS, TROPHS, MG, CBC, ADIFF, ANEU, MYCO, CMP, CAION, GFR ####[place] [address] [place] [address] Neutrophils/100 WBC (Bld) 94.1 % High 50.0-75.0 [facility] [place] Comment [place] above: Performed By: #### P HOS, TROPHS, MG, CBC, ADIFF, ANEU, MYCO, CMP, CAION, GFR ####[address] [address] .GFRon 09-02-2023 GFR Non- >60 Normal [facility] [place] Comment on above: Result Comment: GFR Population [...] CBC, ADIFF, ANEU, MYCO, CMP, CAION, GFR ####[address] [address] GFR >60 Normal [facility] [place] Comment on above: Result Comment: GFR Population [...] CBC, ADIFF, ANEU, MYCO, CMP, CAION, GFR ####[address] [address] .NEUABSon 09-02-2023 Neutrophil, Absolute 6.8 10 3/mcL Normal 2.3-8.1 [facility] ([place] Comment on above: Performed By: #### L AC #### [place] [address] Neutrophil, Absolute 9.1 10 3/mcL High 2.3-8.1 [facility] ([place] Comment on above: Performed By: #### P HOS, TROPHS, MG, CBC, ADIFF, ANEU, MYCO, CMP, CAION, GFR ####[place] [address] APTTon 09-02-2023 aPTT Coag (Bld) [Time] 67.5 s High 25.0-35.0 [facility] ([place] Comment on above: Result Comment: For Heparin anticoagulation therapy, the recommended therapeutic range is: 54-77 seconds (APTT Correlation with Anti-Xa therapeutic range of 0.3-0.7 units/ml). PLEASE REFERENCE THE PHARMACY PROTOCOL FOR DOSING. Heparin dose (APTT) Heparin IV Normal [facility] [place] aPTT Coag (Bld) [Time] 27.8 s Normal 25.0-35.0 [facility] ([place] Comment on above: Result Comment: For Heparin anticoagulation therapy, the recommended therapeutic range is: 54-77 seconds (APTT Correlation with Anti-Xa therapeutic range of 0.3-0.7 units/ml). PLEASE REFERENCE THE PHARMACY PROTOCOL FOR DOSING. Heparin dose (APTT) Heparin IV Normal [facility] ([place]) BGon 09-02-2023 Barometric Pressure 714 mmHg Normal [facility] ([place] Comment on above: Performed By: #### B G #### [address] [address] Base excess Calc (Bld) [Moles/Vol] 1.5 mmol/L Normal [facility] [place] Comment [place] above: Performed By: #### B G #### [address] [address] CO2 [Moles/Vol] 27.8 mmol/L Normal 22.0-30.0 [facility] [place] Comment [place] above: Performed By: #### B G #### [address] [address] HCO3 (Bld) [Moles/Vol] 26.5 mmol/L Normal 21.0-29.0 [facility] [place] Comment [place] above: Performed By: #### B G #### [place] [id number] Oxygen (Bld) [Partial pressure] 130.5 mm[Hg] High 74.0-108.0 [facility] [place] Comment [place] above: Performed By: #### B G #### [place] [id number] Oxygen saturation in Blood 98.7 % High 92.0-96.0 [facility] [place] Comment [place] above: Performed By: #### B G #### [address] [address] pCO2 43.2 mmHg Normal 32.0-46.0 [facility] [place] Comment on above: Performed By: #### B G #### [address] [address] pH (Bld) 7.406 [pH] Normal 7.380-7.460 [facility] [place] Comment on above: Performed By: #### B G #### [address] [address] CAIONon 09-02-2023 Calcium Ionized 0.99 mmol/L Low 1.12-1.32 [facility] [place] Comment [place] above: Performed By: #### P HOS, TROPHS, MG, CBC, ADIFF, ANEU, MYCO, CMP, CAION, GFR ####[place] [address] CBCon 09-02-2023 Erythrocyte distribution width (RBC) [Ratio] 14.4 % Normal 11.5-15.5 [facility] [place] Comment [place] above: Performed By: #### L AC #### [place] [address] Hematocrit (Bld) [Volume fraction] 39.9 % Normal 34.0-46.0 [facility] [place] Comment [place] above: Performed By: #### L AC #### [place] [address] Hgb 13.4 G/dL Normal 12.0-16.0 [facility] [place] Comment on above: Performed By: #### L AC #### [place] [address] MCH (RBC) [Entitic mass] 30.8 pg Normal 27.0-33.0 [facility] [place] Comment on above: Performed By: #### L AC #### [place] [address] MCHC 33.6 G/dL Normal 32.0-36.0 [facility] [place] Comment on above: Performed By: #### L AC #### [place] [address] MCV (RBC) [Entitic vol] 91.5 fL Normal 80.0-99.0 [facility] [place] Comment [place] above: Performed By: #### L AC #### [place] [id number] Platelet 278 10 3/mcL Normal 150-450 [facility] [place] Comment on above: Performed By: #### L AC #### [place] [id number] Platelet mean volume (Bld) [Entitic vol] 7.2 fL Normal 6.6-10.5 [facility] [place] Comment on above: Performed By: #### L AC #### [place] [address] RBC 4.36 10 6/mcL Normal 4.10-5.30 [facility] [place] Comment on above: Performed By: #### L AC #### [place] [address] WBC 7.7 10 3/mcL Normal 4.5-10.8 [facility] [place] Comment on above: Performed By: #### L AC #### [place] [address] Erythrocyte distribution width (RBC) [Ratio] 14.5 % Normal 11.5-15.5 [facility] [place] Comment on above: Performed By: #### P HOS, TROPHS, MG, CBC, ADIFF, ANEU, MYCO, CMP, CAION, GFR ####[place] [address] Hematocrit (Bld) [Volume fraction] 42.1 % Normal 34.0-46.0 [facility] [place] Comment on above: Performed By: #### P HOS, TROPHS, MG, CBC, ADIFF, ANEU, MYCO, CMP, CAION, GFR ####[place] [address] Hgb 13.8 G/dL Normal 12.0-16.0 [facility] [place] Comment on above: Performed By: #### P HOS, TROPHS, MG, CBC, ADIFF, ANEU, MYCO, CMP, CAION, GFR ####[place] [address] MCH (RBC) [Entitic mass] 30.3 pg Normal 27.0-33.0 [facility] [place] Comment on above: Performed By: #### P HOS, TROPHS, MG, CBC, ADIFF, ANEU, MYCO, CMP, CAION, GFR ####[place] [address] MCHC 32.9 G/dL Normal 32.0-36.0 [facility] [place] Comment on above: Performed By: #### P HOS, TROPHS, MG, CBC, ADIFF, ANEU, MYCO, CMP, CAION, GFR ####[place] [address] MCV (RBC) [Entitic vol] 92.3 fL Normal 80.0-99.0 [facility] [place] Comment on above: Performed By: #### P HOS, TROPHS, MG, CBC, ADIFF, ANEU, MYCO, CMP, CAION, GFR ####[place] [address] Platelet 314 10 3/mcL Normal 150-450 [facility] [place] Comment on above: Performed By: #### P HOS, TROPHS, MG, CBC, ADIFF, ANEU, MYCO, CMP, CAION, GFR ####[place] [address] Platelet mean volume (Bld) [Entitic vol] 7.3 fL Normal 6.6-10.5 [facility] [place] Comment on above: Performed By: #### P HOS, TROPHS, MG, CBC, ADIFF, ANEU, MYCO, CMP, CAION, GFR ####[place] [address] RBC 4.56 10 6/mcL Normal 4.10-5.30 [facility] [place] Comment [place] above: Performed By: #### P HOS, TROPHS, MG, CBC, ADIFF, ANEU, MYCO, CMP, CAION, GFR ####[place] [address] WBC 9.6 10 3/mcL Normal 4.5-10.8 [facility] [place] Comment [place] above: Performed By: #### P HOS, TROPHS, MG, CBC, ADIFF, ANEU, MYCO, CMP, CAION, GFR ####[place] [address] CMPon 09-02-2023 Albumin Level 3.3 G/dL Normal 3.2-4.8 [facility] [place] Comment on above: Performed By: #### P HOS, TROPHS, MG, CBC, ADIFF, ANEU, MYCO, CMP, CAION, GFR ####[address] [address] Albumin/Globulin [Mass ratio] 0.9 {ratio} Normal 0.9-1.6 [facility] [place] Comment on above: Performed By: #### P HOS, TROPHS, MG, CBC, ADIFF, ANEU, MYCO, CMP, CAION, GFR ####[address] [address] ALP [Catalytic activity/Vol] 130 U/L High 38-126 [facility] [place] Comment [place] above: Performed By: #### P HOS, TROPHS, MG, CBC, ADIFF, ANEU, MYCO, CMP, CAION, GFR ####[address] [address] ALT [Catalytic activity/Vol] 226 U/L High 10-49 [facility] [place] Comment [place] above: Performed By: #### P HOS, TROPHS, MG, CBC, ADIFF, ANEU, MYCO, CMP, CAION, GFR ####[address] [address] AST [Catalytic activity/Vol] 230 U/L High 8-34 [facility] [place] Comment on above: Performed By: #### P HOS, TROPHS, MG, CBC, ADIFF, ANEU, MYCO, CMP, CAION, GFR ####[address] [address] Bili Total 0.40 mg/dL Normal 0.20-1.20 [facility] [place] Comment on above: Result Comment: Use of this assay is not recommended for patients undergoing treatment with eltrombopag due to the potential for falsely elevated results. Performed By: #### P HOS, TROPHS, MG, CBC, ADIFF, ANEU, MYCO, CMP, CAION, GFR ####[address] [address] BUN/Creatinine Ratio 25.6 ratio High 10.0-22.0 [facility] [place] Comment [place] above: Performed By: #### P HOS, TROPHS, MG, CBC, ADIFF, ANEU, MYCO, CMP, CAION, GFR ####[place] [address] Calcium [Mass/Vol] 8.0 mg/dL Low 8.7-10.4 [facility] ([place] Comment [place] above: Performed By: #### P HOS, TROPHS, MG, CBC, ADIFF, ANEU, MYCO, CMP, CAION, GFR ####[place] [address] Chloride [Moles/Vol] 106 mmol/L Normal 98-110 [facility] [place] Comment [place] above: Performed By: #### P HOS, TROPHS, MG, CBC, ADIFF, ANEU, MYCO, CMP, CAION, GFR ####[place] [address] CO2 [Moles/Vol] 28 mmol/L Normal 22-32 [facility] [place] Comment on above: Performed By: #### P HOS, TROPHS, MG, CBC, ADIFF, ANEU, MYCO, CMP, CAION, GFR ####[place] [address] Creatinine [Mass/Vol] 0.78 mg/dL Normal 0.50-1.20 [facility] ([place] Comment on above: Performed By: #### P HOS, TROPHS, MG, CBC, ADIFF, ANEU, MYCO, CMP, CAION, GFR ####[place] [address] Electrolyte Balance 6.0 mEq/L Normal 4.0-15.0 [facility] ([place] Comment on above: Performed By: #### P HOS, TROPHS, MG, CBC, ADIFF, ANEU, MYCO, CMP, CAION, GFR ####[place] [address] Globulin 3.5 G/dL Normal 1.5-3.8 [facility] [place] Comment on above: Performed By: #### P HOS, TROPHS, MG, CBC, ADIFF, ANEU, MYCO, CMP, CAION, GFR ####[place] [id number] Glucose [Mass/Vol] 165 mg/dL High 82-115 [facility] ([place] Comment on above: Performed By: #### P HOS, TROPHS, MG, CBC, ADIFF, ANEU, MYCO, CMP, CAION, GFR ####[address] [address] Potassium [Moles/Vol] 2.9 mmol/L Low 3.5-5.0 [facility] [place] Comment on above: Performed By: #### P HOS, TROPHS, MG, CBC, ADIFF, ANEU, MYCO, CMP, CAION, GFR ####[place] [address] Sodium [Moles/Vol] 140 mmol/L Normal 136-145 [facility] ([place] Comment on above: Performed By: #### P HOS, TROPHS, MG, CBC, ADIFF, ANEU, MYCO, CMP, CAION, GFR ####[place] [address] Total Protein 6.8 G/dL Normal 5.7-8.2 [facility] [place] Comment on above: Result Comment: No te - New Reference Range in effect 20 Performed By: #### P HOS, TROPHS, MG, CBC, ADIFF, ANEU, MYCO, CMP, CAION, GFR ####[place] [address] Urea nitrogen [Mass/Vol] 20.0 mg/dL Normal 8.0-22.0 [facility] [place] Comment on above: Performed By: #### P HOS, TROPHS, MG, CBC, ADIFF, ANEU, MYCO, CMP, CAION, GFR ####[address] [address] HEPACon 09-02-2023 Hep A IgM Ab Non-Reactive Normal Non-Reactiv e [facility] [place] Comment [place] above: Performed By: #### L AC #### [place] [address] Hep A IgM Ab Int Normal [facility] [place] Comment on above: Result Comment: No s erological evidence of a current Hepatitis A infection. See Interp Performed By: #### L AC #### [place] [address] Hep B Core IgM Ab Non-Reactive Normal Non-Reacti v e [facility] [place] Comment on above: Performed By: #### L AC #### [place] [address] Hep B Core IgM Ab Int Normal [facility] ([place] Comment on above: Result Comment: Samp les with a value < 0.80 Index are considered nonreactive (negative) for IgM antibodies to hepatitis B core antigen. See Interp Performed By: #### L AC #### [place] [address] Hep C Ab Non-Reactive Normal Non-Reactiv [facility] ([place] Comment [place] above: Performed By: #### L AC #### [place] [address] Hep C Ab Int [facility] ([place] Comment on above: Result Comment: Nonr eactive: Samples with a value < 0.80 are considered nonreactive (negative) for antibodies to HCV. A negative test result does not exclude the possibility of exposure to or infection with HCV. HCV antibodies may be undetectable in some stages of the infection and in some clinical conditions. See Interp Performed By: #### L AC #### [place] [address] Hep B Surf Ag Non-Reactive Normal Non-Reactiv [facility] ([place] Comment on above: Performed By: #### L AC #### [place] [address] LABORATORYOrdered By: Ariadna Estes on 09-02-2023 Lactate [...] 3010.17 ng/L High 0.00 - 34.00 ng/L ADM SS HBV surface Ag IA Ql Non-Reactive (09/02/23 1:49 PM) Normal Non-Reactiv e ADM SS Albumin BCP dye [Mass/Vol] 3.3 G/dL Normal 3.2 - 4.8 G/dL ADM SS Albumin/Globulin [Mass ratio] 0.9 {ratio} Normal 0.9 - 1.6 ratio ADM SS ALP [Catalytic activity/Vol] 130 U/L High 38 - 126 U/L ADM SS ALT No additional P-5'-P [Catalytic activity/Vol] 226 U/L High 10 - 49 U/L ADM SS AST [Catalytic activity/Vol] 230 U/L High 8 - 34 U/L ADM SS Bilirubin [Mass/Vol] 0.40 mg/dL Normal 0.20 - 1.20 mg/dL ADM Comment on above: Interpretive Data: U se of this assay is not recommended for patients undergoing treatment with eltrombopag due to the potential for falsely elevated results. Globulin 3.5 G/dL Normal 1.5 - 3.8 G/dL ADM SS Phosphate [Mass/Vol] 3.6 mg/dL Normal 2.4 - 5 .1 mg/dL [facility] Comment on above: Interpretive Data: * *Note - New Reference Range in effect 20 Protein [Mass/Vol] 6.8 G/dL Normal 5.7 - 8.2 G/dL ADM Comment on above: Interpretive Data: * *Note - New Reference Range in effect 20 LABORATORYOrdered By: Hanh Quinn on 09-02-2023 HAV IgM IA Ql Non-Reactive (09/02/23 1:49 PM) Normal Non-Reactiv e ADM SS HAV IgM IA Ql No serological evidence of a current Hepatitis A infection. Invalid [...] Barometric Pressure 714 mm[Hg] Invalid Interpretation Code Auto Chem SS Base excess Calc (Bld) [Moles/Vol] 1.5 mmol/L Invalid Interpretation Code Auto Chem SS [...] (Bld) 7.406 [pH] Normal 7.380 - 7.460 Auto Chem SS Calcium.ionized (Bld) [Mass/Vol] 0.99 [...] Comment on above: Interpretive Data: T jt [employer] (CHEST, 1992, 102:[id number]) [...] Lactic Acid Lvl 1.7 mmol/L Normal 0.2-2.0 [facility] [place] Comment [place] above: Performed By: #### L AC ####[place] [address] Lactic Acid Lvl 2.8 mmol/L High 0.2-2.0 [facility] [place] Comment on above: Performed By: #### L AC #### [place] [address] Lactic Acid Lvl 2.5 mmol/L High 0.2-2.0 [facility] [place] Comment on above: Performed By: #### L AC #### [place] [address] Lactic Acid Lvl 1.8 mmol/L Normal 0.2-2.0 [facility] [place] Comment on above: Performed By: #### L AC ####[place] [address] MGon 09-02-2023 Magnesium [Mass/Vol] 2.4 mg/dL Normal 1.6-2.4 [facility] [place] Comment [place] above: Performed By: #### P HOS, TROPHS, MG, CBC, ADIFF, ANEU, MYCO, CMP, CAION, GFR ####[address], [place] [address] No Panel Informationon 09-02 Microscopic examination of blood, culture Culture has been received in lab and is no growth to date. Routine cultures are held for 5 days. [facility] Culture Urine No growth at 48 hours. [facility] No Panel InformationOrdered By: Sandy Davis on 09-02-2023 Culture Respiratory with Gram Stain Normal respiratory renu present at 48 hours Sensitivity testing not indicated [facility] Comment on above: Requests for Mycopla sma, Legionella, Fungi, Mycobacteria, Chlamydia, and Viruses require ordering of those individual tests. GS Rare Polymorphonucle ar cells Rare Gram Positive Cocci Rare Gram Positive Rods [facility] Comment on above: Requests for Mycopla sma, Legionella, Fungi, Mycobacteria, Chlamydia, and Viruses require ordering of those individual tests. PBNPon 09-02-2023 Natriuretic peptide B (Bld) [Mass/Vol] 5863 pg/mL High 0-900 [facility] ([place] Comment on above: Result Comment: NT-p roBNP results of less than 300 pg/mL effectively rules out acute congestive heart failure with 99% negative predictive value. Performed By: #### P BNP #### [place] [id number] [place] [address] PHOSon 09-02-2023 Phosphate [Mass/Vol] 3.6 mg/dL Normal 2.4-5.1 [facility] [place] Comment on above: Result Comment: No te - New Reference Range in effect 20 Performed By: #### P HOS, TROPHS, MG, CBC, ADIFF, ANEU, MYCO, CMP, CAION, GFR ####[place] [id number] [place] [id number] PROon 09-02-2023 INR Coag (PPP) [Relative time] 1.0 {INR} Normal [facility] ([place] Comment on above: Result Comment: [employer] (CHEST, 1992, 102:[id number]) recommended therapeutic range for oral anticoagulant therapy is: LOW RISK: Prophylaxis of venous thrombosis INR: 2.0-3.0 Treatment of pulmonary embolism 2.0-3.0 Prevention of systemic embolism 2.0-3.0 HIGH RISK: Mechanical prosthetic valves 2.5-3.5 Performed By: #### L AC #### [place] [address] PT Coag (PPP) [Time] 11.8 s Normal 9.0-14.2 [facility] [place] Comment on above: Result Comment: Effe ctive 05/06/08, Protime results may be affected by some antibiotics (i.e. Ciprofloxacin, Azithromycin, Bactrim) which may potentiate the action of oral anticoagulants, with further increases in Protime/INR. Performed By: #### L AC #### [place] [address] TROPHSon 09-02-2023 Troponin I High Sensitivity 3010.17 ng/L High 0.00-34.00 [facility] ([place] Comment on above: Performed By: #### L AC #### [place] [address] Troponin I High Sensitivity 2152.97 ng/L High 0.00-34.00 [facility] ([place] Comment on above: Performed By: #### T ROP ####[place] [address] Troponin I High Sensitivity 1582.01 ng/L High 0.00-34.00 [facility] [place] Comment on above: Performed By: #### L AC #### [place] [address] Troponin I High Sensitivity 926.56 ng/L High 0.00-34.00 [facility] [place] Comment on above: Performed By: #### P HOS, TROPHS, MG, CBC, ADIFF, ANEU, MYCO, CMP, CAION, GFR ####[place] [address] US ABDOMEN LIMITEDon 023 US ABDOMEN LIMITED ORIGINAL EXAMINATION: LIMITED ABDOMINAL [id number]/11/2023 12:19 pm COMPARISON: None HISTORY: ORDERING SYSTEM [...] 09/02/2023 2:27:43 PM Ordering Provider: FRANCESCA Soto [facility] [place] XR CHEST 1 VIEWon 09-02-2023 XR CHEST [...] 09/02/2023 8:06:12 AM Ordering Provider: FRANCESCA Soto [facility] [place] Coronavirus 2019on 1 COVID 19 Result GEOSCIENTIST Normal Negative for COVID19 (SARS CoV2) by PCR. [facility] Comment on above: Result Comment: Nega tive for This test was developed and its performance characteristics determined by [facility]'s [facility] [place]. This test has been authorized by FDA [...] developed and its performance characteristics determined by [facility] [place]. This test has been authorized by FDA [...] developed and its performance characteristics determined by [facility] [place]. This test has been authorized by FDA under an Emergency Use Authorization (EUA). This test has been validated in accordance with the FDA's Guidance Document Policy for Diagnostics Testing in Laboratories Certified to Perform High Complexity Testing under CLIA prior to Emergency use Authorization for Coronavirus Disease 2019 during the Public Health Emergency issued on December 21, 2019. COVID 19 Source GEOSCIENTIST Normal [facility] Comment on above: Result Comment: Naso pharyngeal Corrected on 10/31 AT 0655: Previously reported as NASOPHARYNGEAL Swab Corrected on 10/31 AT 0655: Previously reported as NASOPHARYNGEAL Office Visit: new patienton 01-26-2017 Documentation of current medications (procedure) Done Invalid Interpretation Code [employer] Work Phone: Smoking cessation education (procedure) yes Invalid Interpretation Code [employer] Work Phone: Tobacco smoking status NHIS Never Invalid Interpretation Code [employer] Work Phone: Tobacco use [facility] Current every day smoker Invalid Interpretation Code [employer] Work Phone: [phone] Replaced Document: Tremayne BOLDEN Observationson 01-12-2017 electrocardiogram interpretation Sinus Bradycardia - Negative T-waves - Anterior ischemia. ABNORMAL Invalid Interpretation Code [employer] Work Phone: [phone] GE use only - for [employer] import when terms are not otherwise specified 443 ms Invalid Interpretation Code [employer] Work Phone: [phone] P wave axis, electrocardiogram 76 deg Invalid Interpretation Code [employer] Work Phone: [phone] NM interval, electrocardiogram 144 ms Invalid Interpretation Code [employer] Work Phone: [phone] Pulse (Heart Rate) 57 /min Invalid Interpretation Code [employer] Work Phone: [phone] QRS axis, electrocardiogram 65 deg Invalid Interpretation Code [employer] Work Phone: [phone] QRS duration, electrocardiogram 80 ms Invalid Interpretation Code [employer] Work Phone: [phone] QT interval, electrocardiogram new path ms Invalid Interpretation Code [employer] Work Phone: [phone] T wave axis, electrocardiogram 1 deg Invalid Interpretation Code [employer] Work Phone: [phone] 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 Left ventricular Ejection fraction 66 % Invalid Interpretation Code [employer] Work Phone: [phone] Vital Signs Date Time Vital Sign Value Performing Clinician Facility 07-26-2025 13:37-0400 Body temperature 97 [degF] Alfonso Ozuna GEOSCIENTIST-C Work Phone: [facility] 07-26-2025 13:37-0400 Diastolic blood pressure 82 mm[Hg] Alfonso Ozuna GEOSCIENTIST-C Work Phone: [facility] 07-26-2025 13:37-0400 Heart rate 72 /min Alfonso Ozuna GEOSCIENTIST-C Work Phone: [facility] 07-26-2025 13:37-0400 Respiratory rate 18 /min Alfonso Ozuna GEOSCIENTIST-C Work Phone: [facility] 07-26-2025 13:37-0400 SaO2% (BldA) [Mass fraction] 100 % Alfonso Ozuna GEOSCIENTIST-C Work Phone: [facility] 07-26-2025 13:37-0400 Systolic blood pressure 140 mm[Hg] Alfonso Ozuna GEOSCIENTIST-C Work Phone: [facility] 07-26-2025 06:00-0400 Body mass index (BMI) [Ratio] 17.2 kg/m2 Alfonso Ozuna GEOSCIENTIST-C Work Phone: [facility] 07-26-2025 06:00-0400 Body weight 45.6 kg Alfonsoteofilo Ozuna GEOSCIENTIST-C Work Phone: [facility] 07-25-2025 14:09-0400 Body height 162.56 cm Alfonso Ozuna GEOSCIENTIST-C Work Phone: [facility] 07-24-2025 16:39-0400 Inhaled oxygen flow rate 2 L/min Alfonso Ozuna GEOSCIENTIST-C Work Phone: [facility] 07-23-2025 07:25-0400 Inhaled oxygen concentration 99 % Alfonsoteofilo Ozuna GEOSCIENTIST-C Work Phone: [facility] 07-23-2025 01:15-0400 Heart rate 96 /min Alfonso Ozuna GEOSCIENTIST-C Work Phone: [facility] 07-23-2025 01:15-0400 Respiratory rate 18 /min Alfonso Ozuna GEOSCIENTIST-C Work Phone: [facility] 07-23-2025 00:00-0400 Inhaled oxygen flow rate 4 L/min Alfonso Ozuna GEOSCIENTIST-C Work Phone: [facility] 07-22-2025 23:00-0400 Diastolic blood pressure 67 mm[Hg] Alfonso Ozuna GEOSCIENTIST-C Work Phone: [facility] 07-22-2025 23:00-0400 SaO2% (BldA) [Mass fraction] 96 % Alfonso Ozuna GEOSCIENTIST-C Work Phone: [facility] 07-22-2025 23:00-0400 Systolic blood pressure 169 mm[Hg] Alfonso Ozuna GEOSCIENTIST-C Work Phone: [facility] 07-22-2025 22:00-0400 Body temperature 99.6 [degF] Alfonso Ozuna GEOSCIENTIST-C Work Phone: [facility] 07-22-2025 09:23-0400 Body height 162.56 cm Alfonso Laith GEOSCIENTIST-C Work Phone: [facility] 07-22-2025 09:23-0400 Body weight 50.7 kg Alfonso Ozuna GEOSCIENTIST-C Work Phone: [facility] 07-22-2025 06:46-0400 Inhaled oxygen concentration 91 % Alfonso Ozuna GEOSCIENTIST-C Work Phone: [facility] 07-22-2025 05:36-0400 Body mass index (BMI) [Ratio] 19.1 kg/m2 Alfonso Ozuna GEOSCIENTIST-C Work Phone: [facility] 06-18-2025 03:58-0400 SaO2% (BldA) [Mass fraction] 97.1 % JHONNY VALENCIA MD [facility] 06-17-2025 04:13-0400 SaO2% (BldA) [Mass fraction] 97.7 % JHONNY VALENCIA MD [facility] 06-16-2025 11:07-0400 SaO2% (BldA) [Mass fraction] 97.1 % JHONNY VALENCIA MD [facility] 11-09-2024 07:16-0500 Body temperature 98.06 [degF] JHONNY VALENCIA MD [facility] 11-09-2024 07:16-0500 Diastolic Blood Pressure Non-Invasive 72 mm[Hg] JHONNY VALENCIA MD [facility] 11-09-2024 07:16-0500 Heart rate 64 /min JHONNY VALENCIA MD [facility] 11-09-2024 07:16-0500 Respiratory rate 20 /min JHONNY VALENCIA MD [facility] 11-09-2024 07:16-0500 Systolic Blood Pressure Non-Invasive 161 mm[Hg] JHONNY VALENCIA MD [facility] 11-09-2024 06:53-0500 Heart rate 72 /min JHONNY VALENCIA MD [address] [place] [address] 11-09-2024 06:53-0500 Respiratory rate 20 /min JHONNY VALENCIA MD [facility] 11-09-2024 06:22-0500 Heart rate 63 /min JHONNY VALENCIA MD [address] 11-09-2024 04:03-0500 Body temperature 98.42 [degF] JHONNY VALENCIA MD [facility] 11-09-2024 04:03-0500 Diastolic Blood Pressure Non-Invasive 74 mm[Hg] JHONNY VALENCIA MD [facility] 11-09-2024 04:03-0500 Heart rate 63 /min JHONNY VALENCIA MD [facility] 11-09-2024 04:03-0500 Mean blood pressure 97 mm[Hg] JHONNY VALENCIA MD [facility] 11-09-2024 04:03-0500 Respiratory rate 22 /min JHONNY VALENCIA MD [facility] 11-09-2024 04:03-0500 Systolic Blood Pressure Non-Invasive 162 mm[Hg] JHONNY VALENCIA MD [facility] 11-09-2024 02:46-0500 Heart rate 63 /min JHONNY VALENCIA MD [facility] 11-09-2024 00:45-0500 Blood Pressure Cuff Size JHONNY VALENCIA MD [facility] 11-09-2024 00:45-0500 Blood Pressure Location JHONNY VALENCIA MD [facility] 11-09-2024 00:45-0500 Body temperature 98.06 [degF] JHONNY VALENCIA MD [facility] 11-09-2024 00:45-0500 Diastolic Blood Pressure Non-Invasive 63 mm[Hg] JHONNY VALENCIA MD [facility] 11-09-2024 00:45-0500 Heart rate 65 /min JHONNY VALENCIA MD [facility] 11-09-2024 00:45-0500 Reason For Taking VItal Signs JHONNY VALENCIA MD [facility] 11-09-2024 00:45-0500 Systolic Blood Pressure Non-Invasive 133 mm[Hg] JHONNY VALENCIA MD [facility] 11-08-2024 19:18-0500 Blood Pressure Cuff Size JHONNY VALENCIA MD [facility] 11-08-2024 19:18-0500 Blood Pressure Location JHONNY VALENCIA MD [facility] 11-08-2024 19:18-0500 Reason For Taking VItal Signs JHONNY VALENCIA MD [facility] 11-08-2024 14:34-0500 Reason For Taking VItal Signs JHONNY VALENCIA MD [facility] 11-08-2024 11:03-0500 Blood Pressure Cuff Size JHONNY VALENCIA MD [facility] 11-08-2024 11:03-0500 Blood Pressure Location JHONNY VALENCIA MD [facility] 11-08-2024 11:03-0500 Blood Pressure Method JHONNY VALENCIA MD [facility] 11-08-2024 07:29-0500 Blood Pressure Method JHONNY VALENCIA MD [facility] 11-08-2024 06:19-0500 Heart rate 70 /min JHONNY VALENCIA MD [facility] 11-07-2024 23:30-0500 Heart rate 54 /min JHONNY VALENCIA MD [facility] 11-07-2024 23:30-0500 Mean blood pressure 98 mm[Hg] JHONNY VALENCIA MD [facility] 11-07-2024 12:22-0500 Mean blood pressure 80 mm[Hg] JHONNY VALENCIA MD [facility] 11-07-2024 03:30-0500 Body temperature 97.34 [degF] JHONNY VALENCIA MD [facility] 11-06-2024 23:33-0500 Body temperature 97.52 [degF] JHONNY VALENCIA MD [facility] 11-06-2024 03:27-0500 Body temperature 98.06 [degF] JHONNY VALENCIA MD [facility] 11-06-2024 03:24-0500 SaO2% (BldA) [Mass fraction] 97.4 % JHONNY VALENCIA MD [facility] 11-05-2024 08:33-0500 Heart rate 107 /min JHONNY VALENCIA MD [facility] 11-05-2024 03:15-0500 SaO2% (BldA) [Mass fraction] 94.7 % JHONNY VALENCIA MD [facility] 11-04-2024 12:29-0500 SaO2% (BldA) [Mass fraction] 98.1 % JHONNY AVLENCIA MD [facility] 11-04-2024 11:10-0500 Body height 157.5 cm JHONNY VALENCIA MD [facility] 11-04-2024 11:10-0500 Body weight 54.5 kg JHONNY VALENCIA MD [facility] 11-04-2024 11:10-0500 Body weight 21.97 kg/m2 JHONNY VALENCIA MD [facility] 10-03-2024 14:26-0500 Body height 162.6 cm Kenzie Callahanman PRECISION INSTRUMENT AND TOOL MAKER-STAPLING MACHINE OPERATOR Work Phone: 6(606)193-837313 [place] [address] 10-03-2024 14:26-0500 Body mass index (BMI) [Ratio] 18.02 kg/m2 Kenzie Amrizol PRECISION INSTRUMENT AND TOOL MAKER-STAPLING MACHINE OPERATOR Work Phone: 3(050)043-194613 [place] [address] 10-03-2024 14:26-0500 Body weight 47.63 kg Kenzie Marizol PRECISION INSTRUMENT AND TOOL MAKER-STAPLING MACHINE OPERATOR Work Phone: 2(830)489-305613 [place] [address] 10-03-2024 14:26-0500 Diastolic blood pressure 81 mm[Hg] Kenzie Marizol PRECISION INSTRUMENT AND TOOL MAKER-STAPLING MACHINE OPERATOR Work Phone: 4(850)149-748913 [place] [address] 10-03-2024 14:26-0500 Heart rate 60 /min Kenzie Marizol PRECISION INSTRUMENT AND TOOL MAKER-STAPLING MACHINE OPERATOR Work Phone: 7(862)261-764613 [place] [address] 10-03-2024 14:26-0500 Systolic blood pressure 195 mm[Hg] Kenzie Marizol PRECISION INSTRUMENT AND TOOL MAKER-STAPLING MACHINE OPERATOR Work Phone: 4(002)754-358613 [place] [address] 09-18-2023 12:02-0500 Body height 162.6 cm Elvin Newbill PA-C Work Phone: 3(556)149-698713 [place] [address] 09-18-2023 12:02-0500 Body mass index (BMI) [Ratio] 17.7 kg/m2 Elvin Newbill PA-C Work Phone: 0(251)247-307613 [place] [address] 09-18-2023 12:02-0500 Body temperature 97.81 [degF] Elvin Newbill PA-C Work Phone: [facility] 09-18-2023 12:02-0500 Body weight 46.77 kg Elvin Newbill PA-C Work Phone: [facility] 09-18-2023 12:02-0500 Diastolic blood pressure 75 mm[Hg] Elvin Newbill PA-C Work Phone: [facility] 09-18-2023 12:02-0500 Heart rate 63 /min Elvin Newbill PA-C Work Phone: [facility] 09-18-2023 12:02-0500 SaO2% (BldA) [Mass fraction] 95 % Elvin Newbill PA-C Work Phone: [facility] 09-18-2023 12:02-0500 Systolic blood pressure 188 mm[Hg] Elvin Newbill PA-C Work Phone: [facility] 09-06-2023 16:00-0500 Heart rate 57 /min JHONNY VALENCIA MD [facility] 09-06-2023 14:28-0500 Body temperature 98.06 [degF] JHONNY VALENCIA MD [facility] 09-06-2023 14:28-0500 Diastolic Blood Pressure Non-Invasive 64 mm[Hg] JHONNY VALENCIA MD [facility] 09-06-2023 14:28-0500 Heart rate 60 /min JHONNY VALENCIA MD [facility] 09-06-2023 14:28-0500 Reason For Taking VItal Signs JHONNY VALENCIA MD [facility] 09-06-2023 14:28-0500 Respiratory rate 18 /min JHONNY VALENCIA MD [facility] 09-06-2023 14:28-0500 Systolic Blood Pressure Non-Invasive 138 mm[Hg] JHONNY VALENCIA MD [facility] 09-06-2023 12:38-0500 Heart rate 69 /min JHONNY VALENCIA MD [facility] 09-06-2023 12:38-0500 Respiratory rate 20 /min JHONNY VALENCIA MD [facility] 09-06-2023 11:05-0500 Blood Pressure Method JHONNY VALENCIA MD [facility] 09-06-2023 11:05-0500 Body temperature 97.88 [degF] JHONNY VALENCIA MD [facility] 09-06-2023 11:05-0500 Diastolic Blood Pressure Non-Invasive 76 mm[Hg] JHONNY VALENCIA MD [facility] 09-06-2023 11:05-0500 Heart rate 60 /min JHONNY VALENCIA MD [facility] 09-06-2023 11:05-0500 Respiratory rate 20 /min JHONNY VALENCIA MD [facility] 09-06-2023 11:05-0500 Systolic Blood Pressure Non-Invasive 138 mm[Hg] JHONNY VALENCIA MD [facility] 09-06-2023 08:50-0500 Heart rate 66 /min JHONNY VALENCIA MD [facility] 09-06-2023 08:45-0500 Blood Pressure Cuff Size JHONNY VALENCIA MD [facility] 09-06-2023 08:45-0500 Blood Pressure Location JHONNY VALENCIA MD [facility] 09-06-2023 08:45-0500 Blood Pressure Method JOHNNY VALENCIA MD [facility] 09-06-2023 08:45-0500 Diastolic Blood Pressure Non-Invasive 74 mm[Hg] JHONNY VALENCIA MD [facility] 09-06-2023 08:45-0500 Systolic Blood Pressure Non-Invasive 136 mm[Hg] JHONNY VALENCIA MD [facility] 09-06-2023 07:18-0500 Blood Pressure Cuff Size JHONNY VALENCIA MD [facility] 09-06-2023 07:18-0500 Blood Pressure Location JHONNY VALENCIA MD [facility] 09-06-2023 07:18-0500 Blood Pressure Method JHONNY VALENCIA MD [facility] 09-06-2023 07:18-0500 Body temperature 97.88 [degF] JHONNY VALENCIA MD [facility] 09-06-2023 06:37-0500 Heart rate 62 /min JHONNY VALENCIA MD [facility] 09-06-2023 04:19-0500 Blood Pressure Location JHONNY VALENCIA MD [facility] 09-05-2023 23:52-0500 Blood Pressure Cuff Size JHONNY VALENCIA MD [facility] 09-05-2023 18:31-0500 Heart rate 63 /min JHONNY VALENCIA MD [facility] 09-05-2023 09:21-0500 Heart rate 78 /min JHONNY VALENCIA MD [facility] 09-05-2023 06:56-0500 Mean blood pressure 93 mm[Hg] JHONNY VALENCIA MD [facility] 09-04-2023 16:41-0500 Heart rate 70 /min JHONNY VALENCIA MD [facility] 09-03-2023 17:31-0500 SaO2% (BldA) [Mass fraction] 94.0 % JHONNY VALENCIA MD [facility] 09-03-2023 16:26-0500 Mean blood pressure 95 mm[Hg] JHONNY VALENCIA MD [facility] 09-03-2023 15:31-0500 Mean blood pressure 95 mm[Hg] JHONNY VALENCIA MD [facility] 09-03-2023 09:08-0500 Body height 157.5 cm JHONNY VALENCIA MD [facility] 09-03-2023 09:08-0500 Body weight 45.9 kg JHONNY VALENCIA MD [facility] 09-03-2023 09:08-0500 Body weight 18.5 kg/m2 JHONNY VALENCIA MD [facility] 09-03-2023 07:10-0500 SaO2% (BldA) [Mass fraction] 96.7 % JHONNY VALENCIA MD [facility] 09-02-2023 07:27-0500 SaO2% (BldA) [Mass fraction] 98.7 % JHONNY VALENCIA MD [facility] 01-26-2017 08:20-0400 BMI (Body Mass Index) 20.77 kg/m2 Rashidumi DeFinis [facility] Work Phone: 01-26-2017 08:20-0400 Body Temperature 97.8 [degF] Harumi DeFinis [facility] Work Phone: 01-26-2017 08:20-0400 BP Diastolic 65 mm[Hg] Harumi DeFinis [facility] Work Phone: 01-26-2017 08:20-0400 BP Systolic 125 mm[Hg] Harumi DeFinis [facility] Work Phone: 01-26-2017 08:20-0400 Height 162.56 cm Harumi DeFinis [facility] Work Phone: 01-26-2017 08:20-0400 Pulse (Heart Rate) 60 /min Harumi DeFinis [facility] Work Phone: 01-26-2017 08:20-0400 Pulse Oximetry 98 % [facility] Work Phone: 01-26-2017 08:20-0400 Weight 54.89 kg [facility] Work Phone: 01-12-2017 14:25-0400 Respiratory Rate 16 /min [facility] Work Phone: Encounters Encounter Date Encounter Type Care Provider Facility Start: 08-26-2025 ambulatory Alfonso Ozuna NP Facility :[facility] [place] Start: 07-26-2025 End: 08-02-2025 ambulatory NANCY PAREDES [facility] Start: 07-26-2025 Dr. Kendall Doran MD -[facility] Start: 07-26-2025 Dr. Renee Encarnacion MD - [facility] Work Phone: Start: 07-25-2025 Dr. Renee Encarnacion MD - [facility] Work Phone: Start: 07-24-2025 Dr. Renee Encarnacion MD - [facility] Work Phone: Start: 07-23-2025 Dr. Renee Encarnacion MD - [facility] Work Phone: Start: 07-23-2025 Dr. Eleazar Valle DO -[facility] Start: 07-22-2025 Apple Carvalho GEOSCIENTIST- -[facility] Start: 07-22-2025 Dr. Renee Encarnacion MD - [facility] Work Phone: Start: 07-22-2025 Dr. Eleazar Valle DO -[facility] Start: 07-21-2025 Dr. Renee Encarnacion MD - [facility] Work Phone: Start: 07-21-2025 Dr. Eleazar Valle DO -[facility] Start: 07-20-2025 Dr. [facility]ard [facility] Work Phone: Start: 07-19-2025 Dr. Gerard Santos DO -[facility] Work Phone: Start: 07-18-2025 Dr. Gerard Santos DO -[facility] Work Phone: Start: 07-17-2025 Dr. Eleazar Valle DO -[facility] Start: 07-16-2025 ambulatory Alfonso Ozuna GEOSCIENTIST Facility :[facility] [place] Start: 07-16-2025 ambulatory Jack Yan ty:[facility] Start: 07-16-2025 End: 07-26-2025 Evaluation and management of inpatient Alfonso Ozuna GEOSCIENTIST-C Work Phone: -Intensive Care Unit Start: 07-16-2025 End: 07-26-2025 [facility]. [facility] Work Phone: Start: 07-02-2025 End: 08-06-2025 ambulatory CLAUDE PAREDES [facility] Start: 06-16-2025 End: 06-25-2025 Evaluation and management of inpatient JHONNY VALENCIA MD [facility] Start: 06-16-2025 End: 06-16-2025 Emergency department patient visit JACK [facility] Start: 03-12-2025 ambulatory ASTRID PAREDES [facility] Start: 03-07-2025 End: 03-07-2025 ambulatory ASTRID PAREDES [facility] Start: 11-10-2024 End: 11-17-2024 ambulatory NANCY PAREDES [facility] Start: 11-04-2024 End: 11-09-2024 Evaluation and management of inpatient JHONNY VALENCIA MD [facility] Start: 11-04-2024 End: 11-04-2024 Emergency department patient visit ALFONSO OZUNA [facility] Start: 10-21-2024 End: 10-23-2024 ambulatory KRYSTIAN STEELE [facility] Start: 10-09-2024 End: 10-10-2024 Emergency department patient visit JOSS ARMANDO [facility] Start: 10-03-2024 End: 10-06-2024 Evaluation and management of inpatient ALFONSO OZUNA [facility] Start: 10-03-2024 End: 10-03-2024 ambulatory [facility] Start: 10-03-2024 End: 10-03-2024 Encounter for general adult medical examination without abnormal findings [facility] Start: 10-03-2024 End: 10-03-2024 Office outpatient visit 25 minutes Kenzie B [facility] PRECISION INSTRUMENT AND TOOL MAKER-STAPLING MACHINE OPERATOR Work Phone: [facility] Comment on above: Primary hypertension (Primary Dx); Congestive heart failure, unspecified HF chronicity, unspecified heart failure type; 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, unspecified vessel or lesion type; Chronic obstructive pulmonary disease, unspecified COPD type (Multi); Health maintenance examination Start: 10-03-2024 End: 10-03-2024 Patient encounter status Kenzie Sidney [facility] PRECISION INSTRUMENT AND TOOL MAKER-STAPLING MACHINE OPERATOR Work Phone: [facility] Work Phone: Start: 09-18-2023 End: 09-18-2023 Office outpatient new 45 minutes Elvin Blanc PA-C Work Phone: [facility] Comment on above: Chronic obstructive pulmonary disease, unspecified COPD type (CMS/HCC) (Primary Dx); 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, unspecified vessel or lesion type (CMS/HCC); Primary hypertension; Congestive heart failure, unspecified HF chronicity, unspecified heart failure type (CMS/HCC) Start: 09-02-2023 ambulatory JACK Tian ty:[facility] Start: 09-02-2023 End: 09-06-2023 Evaluation and management of inpatient DO FERCHO VILLASEÑOR Facility:[facility] Start: 09-02-2023 End: 09-06-2023 Evaluation and management of inpatient JHONNY VALENCIA MD [facility] Start: 09-02-2023 ambulatory JACK Renee AMOL Cobosi ty:[facility] Start: 06-16-2021 Preoperative state Alfonso Laith GEOSCIENTIST-C Work Phone: [facility] Procedures Date Procedure Procedure Detail Performing Clinician Start: 07-26-2025 Estimated creatinine clearance Alfonso Laith GEOSCIENTIST-C Work Phone: Start: 07-26-2025 Mean corpuscular hem oglobin concentration determination Alfonso Laith GEOSCIENTIST-C Work Phone: Start: 07-26-2025 Neutrophil count Alfonso Laith GEOSCIENTIST-C Work Phone: Start: 07-26-2025 Nucleated red blood cell count procedure Alfonso Laith GEOSCIENTIST-C Work Phone: Start: 07-26-2025 Platelet mean volume determination Alfonso Laith GEOSCIENTIST-C Work Phone: Start: 07-25-2025 CT angiography of ch est with contrast Alfonso Laith GEOSCIENTIST-C Work Phone: Start: 07-25-2025 D-dimer assay, quantitative Alfonso Laith GEOSCIENTIST-C Work Phone: Start: 07-22-2025 Videoswallow Alfonso de leon GEOSCIENTIST-C Work Phone: Start: 07-22-2025 Blood count smear mc rscp w/mnl difrntl wbc count Alfonso Laith GEOSCIENTIST-C Work Phone: Start: 07-22-2025 Estimated creatinine clearance Alfonso Laith GEOSCIENTIST-C Work Phone: Start: 07-22-2025 Mean corpuscular hem oglobin concentration determination Alfonso Laith GEOSCIENTIST-C Work Phone: Start: 07-22-2025 Nucleated red blood cell count procedure Alfonso Laith GEOSCIENTIST-C Work Phone: Start: 07-22-2025 Platelet mean volume determination Alfonso Ozuna GEOSCIENTIST-C Work Phone: Start: 07-19-2025 Plain chest X-ray Alfonso Ozuna GEOSCIENTIST-C Work Phone: Start: 07-19-2025 Carbon dioxide measu rement, partial pressure Alfonso Ozuna GEOSCIENTIST-C Work Phone: Start: 07-19-2025 Gases blood o2 satur ation only direct erik Alfonso Ozuna GEOSCIENTIST-C Work Phone: Start: 07-19-2025 Measurement of parti al pressure of oxygen in blood Alfonso Ozuna GEOSCIENTIST-C Work Phone: Start: 07-19-2025 Oxygen measurement Watson Ozuna GEOSCIENTIST-C Work Phone: Start: 07-19-2025 Oxygen saturation measurement Alfonso Ozuna GEOSCIENTIST-C Work Phone: Start: 07-18-2025 Hepatitis A virus an tibody, IgM type Alfonso Laith GEOSCIENTIST-C Work Phone: Start: 07-18-2025 Hepatitis B core ant ibody measurement, IgM type Alfonso Laith GEOSCIENTIST-C Work Phone: Start: 07-18-2025 Hepatitis C antibody measurement Alfonso Laith GEOSCIENTIST-C Work Phone: Start: 07-18-2025 Serum inorganic phos phate measurement Alfonso Laith GEOSCIENTIST-C Work Phone: Start: 07-17-2025 Plain chest X-ray Alfonso Ozuna GEOSCIENTIST-C Work Phone: Start: 07-16-2025 Bacterial nucleic acid assay Alfonso Laith GEOSCIENTIST-C Work Phone: Start: 07-16-2025 Blood culture Alfonso grijalva GEOSCIENTIST-C Work Phone: Start: 07-16-2025 Gram stain microscopy D mariusz Ozuna GEOSCIENTIST-C Work Phone: Start: 07-16-2025 Legionella pneumophi la antigen assay Alfonso Ozuna GEOSCIENTIST-C Work Phone: Start: 07-16-2025 Nucleic acid assay Watson Ozuna GEOSCIENTIST-C Work Phone: Start: 07-16-2025 Respiratory microbia l culture Alfonso Ozuna GEOSCIENTIST-C Work Phone: Start: 07-16-2025 End: 07-16-2025 Streptococcus pneumoniae antigen assay Alfonso Ozuna GEOSCIENTIST-C Work Phone: Start: 07-16-2025 Urine culture Alfonso Barclay is GEOSCIENTIST-C Work Phone: Start: 07-16-2025 Alfonso Rm s GEOSCIENTIST-C Work Phone: Start: 07-16-2025 Plain chest X-ray Alfonso Ozuna GEOSCIENTIST-C Work Phone: Start: 07-16-2025 Assay of lactate Alfonso Ozuna GEOSCIENTIST-C Work Phone: Start: 07-16-2025 Lactic acid measurement Alfonso Laith GEOSCIENTIST-C Work Phone: Start: 07-16-2025 Urine microscopy: red cells Alfonso Ozuna GEOSCIENTIST-C Work Phone: Start: 07-16-2025 Urnls dip stick/tabl et reagent auto microscopy Alfonso Ozuna GEOSCIENTIST-C Work Phone: Start: 07-16-2025 CT of abdomen and pe lvis without contrast Alfonso Ozuna GEOSCIENTIST-C Work Phone: Start: 07-16-2025 Assay of triglycerides Alfonso Ozuna GEOSCIENTIST-C Work Phone: Start: 07-16-2025 Total cholesterol:HD L ratio measurement Alfonso Ozuna GEOSCIENTIST-C Work Phone: Start: 07-16-2025 Triglycerides measurement Alfonso Laith GEOSCIENTIST-C Work Phone: Start: 07-16-2025 CT angiography of ch est with contrast Alfonso Ozuna GEOSCIENTIST-C Work Phone: Start: 07-16-2025 CT of head without contrast Alfonso KOHLI Work Phone: Start: 06-16-2025 Urinalysis ALFONSO De Leon Comment on above: Result Comment: URIN ALYSIS Performed By: [id number] ####[facility],[address] [place] [id number] Start: 11-04-2024 Urinalysis ALFONSO De Leon Comment on above: Result Comment: URIN ALYSIS Performed By: #### [id number] ####[facility],[address] [place] [id number] Start: 09-04-2023 Echocardiography JHONNY VALENCIA MD Start: [...] of carotid artery JHONNY VALENCIA MD Start: 01-02-2017 History of placement of stent for coronary artery disease Alfonso KOHLI Work Phone: Start: 12-27-2016 Doppler ultrasonogra phy of renal artery JHONNY VALENCIA MD Cardiac catheterization JOSE VALENCIA MD Comment on above: Per cardiology OV no te dated 06/16/21 H/O: hysterectomy Alfonso de leon GEOSCIENTIST-C Work Phone: History of percutane ous transluminal coronary angioplasty JHONNY VALENCIA MD Plan of Treatment Date Care Activity Detail Author Start: 2029 RSV High Risk: (Elderly (60+) or Population) (1 - 1-dose 75+ series) RSV High Risk: (Elderly (60+) or Population) (1 - 1-dose 75+ series) [facility] Start: 07-26-2025 Patient discharge [facility] Start: 07-25-2025 Referral to physical therapist clinic director [facility] Start: 07-25-2025 [facility] Start: 07-24-2025 Referral to gastroenterology service [facility] Start: 07-23-2025 Care planning and problem solving actions [facility] Start: 07-23-2025 Inhalation therapy procedure [facility] Start: 07-22-2025 Referral to service [facility] Start: 07-22-2025 Palliative care [facility] Start: 07-21-2025 End: 07-22-2025 [facility] Start: 07-21-2025 Oxygen therapy [facility] Start: 07-21-2025 Incentive spirometry [facility] Start: 07-21-2025 Speech therapy assessment [facility] Start: 07-21-2025 Referral for physical therapy [facility] Start: 07-21-2025 Referral to occupational therapist [facility] Start: 07-20-2025 [facility] Start: 07-18-2025 End: 07-19-2025 [facility] Start: 07-18-2025 Following clinical pathway protocol [facility] Start: 07-17-2025 End: 07-18-2025 [facility] Start: 07-17-2025 Referral to service [facility] Start: 07-16-2025 End: 07-17-2025 [facility] Start: 07-16-2025 Methicillin resistant Staphylococcus aureus screening test [facility] Start: 07-16-2025 Following clinical pathway protocol [facility] Start: 07-16-2025 Cardiac monitoring [facility] Start: 07-16-2025 Care regimes management [facility] Start: 07-16-2025 Catheterization of vein [facility] Start: 07-16-2025 Consultation [facility] Start: 07-16-2025 Continuous pulse oximetry [facility] Start: 07-16-2025 Notification of physician [facility] Start: 07-16-2025 Vital signs measurements [facility] Start: 07-16-2025 Verification routine [facility] Start: 07-16-2025 Admission procedure [facility] Start: 07-16-2025 Patient referral to dietitian [facility] Start: 10-03-2024 End: 10-03-2025 CBC W Auto Differential panel - Blood CBC and Auto Differential Lab Routine 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, unspecified vessel or lesion type (Multi) Expected: 10/03/2024 (Approximate), Expires: 10/03/2025 [facility] Work Phone: Comment on above: Expected: 10/03/2024 (Approximate), Expi res: 10/03/2025 Start: 10-03-2024 End: 10-03-2025 Comprehensive metabolic 2000 panel - Serum or Plasma Comprehensive Metabolic Panel Lab Routine Primary hypertension Expected: 10/03/2024 (Approximate), Expires: 10/03/2025 [facility] Work Phone: Comment on above: Expected: 10/03/2024 (Approximate), Expi res: 10/03/2025 Start: 10-03-2024 End: 10-03-2025 Lipid 1996 panel - Serum or Plasma Lipid Panel Lab Routine Health maintenance examination Expected: 10/03/2024 (Approximate), Expires: 10/03/2025 [facility] Work Phone: Comment on above: Expected: 10/03/2024 (Approximate), Expi res: 10/03/2025 Start: 10-03-2024 End: 10-03-2025 TSH with reflex to Free T4 if abnormal TSH with reflex to Free T4 if abnormal Lab Routine Health maintenance examination Expected: 10/03/2024 (Approximate), Expires: 10/03/2025 [facility] Work Phone: Comment on above: Expected: 10/03/2024 (Approximate), Expi res: 10/03/2025 Start: 10-03-2024 End: 10-03-2025 Heart Transthoracic Transthoracic Echo (TTE) Complete Echocardiography Routine Primary hypertension Congestive heart failure, unspecified HF chronicity, unspecified heart failure type (Multi) 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, unspecified vessel or lesion type (CMS/HCC) Primary hypertension Congestive heart failure, unspecified HF chronicity, unspecified heart failure type (CMS/HCC) Expected: 09/18/2023 (Approximate), Expires: 09/18/2024 [facility] Service Area Work Phone: Comment on above: Expected: 09/18/2023 (Approximate), Expi res: 09/18/2024 Start: 09-18-2023 End: 09-18-2024 Comprehensive metabolic 2000 panel - Serum or Plasma Comprehensive Metabolic Panel Lab Routine Chronic obstructive pulmonary disease, unspecified COPD type (CMS/HCC) 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, unspecified vessel or lesion type (CMS/HCC) Primary hypertension Congestive heart failure, unspecified HF chronicity, unspecified heart failure type (CMS/HCC) Expected: 09/18/2023 (Approximate), Expires: 09/18/2024 [facility] Work Phone: Comment on above: Expected: 09/18/2023 (Approximate), Expi res: 09/18/2024 Start: 09-18-2023 End: 09-18-2024 Lipid 1996 panel - Serum or Plasma Lipid Panel Lab Routine Chronic obstructive pulmonary disease, unspecified COPD type (CMS/HCC) 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, unspecified vessel or lesion type (CMS/HCC) Primary hypertension Congestive heart failure, unspecified HF chronicity, unspecified heart failure type (CMS/HCC) Expected: 09/18/2023 (Approximate), Expires: 09/18/2024 [facility] Work Phone: Comment on above: Expected: 09/18/2023 (Approximate), Expi res: 09/18/2024 Start: 09-18-2023 End: 09-18-2024 TSH with reflex to Free T4 if abnormal TSH with reflex to Free T4 if abnormal Lab Routine Chronic obstructive pulmonary disease, unspecified COPD type (CMS/HCC) 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, unspecified vessel or lesion type (CMS/HCC) Primary hypertension Congestive heart failure, unspecified HF chronicity, unspecified heart failure type (CMS/HCC) Expected: 09/18/2023 (Approximate), Expires: 09/18/2024 [facility] Work Phone: Comment on above: Expected: 09/18/2023 (Approximate), Expi res: 09/18/2024 Start: 06-23-2023 Influenza vaccination Influenza Vaccine (#1) [facility] Start: 12-06-2021 COVID-19 Vaccine (2 - Moderna series) COVID-19 Vaccine (2 - Moderna series) [facility] Start: 04-17-2017 End: 04-17-2017 Appointment Appointment [employer] [facility] Work Phone: Start: 01-26-2017 End: 01-26-2017 CT Ldct scan for lung cancer screening CT Ldct scan for lung cancer screening [facility] Work Phone: Start: 01-26-2017 End: 01-26-2017 DMB DMB [facility] Work Phone: Start: 01-26-2017 End: 01-26-2017 Follow Up Appt 6 weeks Follow Up Appt 6 weeks [facility] [employer] Phone: Start: 01-26-2017 End: 01-26-2017 Pulmonary Function Test - complete Pulmonary Function Test - complete [facility] Work Phone: Start: 01-26-2017 End: 01-26-2017 Pulmonary stress test/simple Pulmonary stress testing; simple (eg, 6-minute walk) [facility] Work Phone: Start: 01-12-2017 End: 04-03-2017 Cardiac Rehab [facility] [address] [facility] [place], [address] [facility] Work Phone: Start: 01-12-2017 End: 01-12-2017 Cardiovascular stress test using treadmill Treadmill stress test (no imaging) [facility] Work Phone: Start: 01-12-2017 End: 03-24-2017 Electrocardiogram, complete EKG (In office) [facility] Work Phone: Start: 01-12-2017 End: 01-12-2017 Follow Up Appt 3 months Follow Up Appt 3 months [facility] Work Phone: Start: 01-12-2017 End: 01-12-2017 MMM MMM [facility] Work Phone: Start: 02-23-2004 Zoster Vaccines (1 of 2) Zoster Vaccines (1 of 2) [facility] Start: 1994 Screening for malignant neoplasm of breast Mammogram [facility] Start: 02-23-1976 DTaP/Tdap/Td Vaccines (1 - Tdap) DTaP/Tdap/Td Vaccines (1 - Tdap) [facility] Start: 02-23-1972 Hepatitis C screening Hepatitis C Screening [facility] Start: 1955 Lipid panel Lipid Panel [facility] Start: 1955 Medicare Annual Wellness Visit Medicare Annual Wellness Visit (AWV) [facility] Start: 1955 Screening for malignant neoplasm of colon [facility] Start: 1955 Screening for osteoporosis Bone Density Scan [facility] Anion gap in Serum o r Plasma [facility] Anion gap in Serum o r Plasma [facility] Anion gap in Serum o r Plasma [facility] Anion gap in Serum o r Plasma [facility] Anion gap in Serum o r Plasma [facility] Anion gap in Serum o r Plasma [facility] Anion gap in Serum o r Plasma [facility] BUN/Creatinine ratio [facility] BUN/Creatinine ratio [facility] BUN/Creatinine ratio [facility] BUN/Creatinine ratio [facility] BUN/Creatinine ratio [facility] BUN/Creatinine ratio [facility] BUN/Creatinine ratio [facility] Calcium [Mass/volume ] in Serum or Plasma [facility] Calcium [Mass/volume ] in Serum or Plasma [facility] Calcium [Mass/volume ] in Serum or Plasma [facility] Calcium [Mass/volume ] in Serum or Plasma [facility] Calcium [Mass/volume ] in Serum or Plasma [facility] Calcium [Mass/volume ] in Serum or Plasma [facility] Calcium [Mass/volume ] in Serum or Plasma [facility] Carbon dioxide, tota l [Moles/volume] in Central venous blood [facility] Carbon dioxide, tota l [Moles/volume] in Central venous blood [facility] Carbon dioxide, tota l [Moles/volume] in Central venous blood [facility] Carbon dioxide, tota l [Moles/volume] in Central venous blood [facility] Carbon dioxide, tota l [Moles/volume] in Central venous blood [facility] Carbon dioxide, tota l [Moles/volume] in Central venous blood [facility] Carbon dioxide, tota l [Moles/volume] in Central venous blood [facility] Creatinine [Mass/vol ume] in Serum or Plasma [facility] Creatinine [Mass/vol ume] in Serum or Plasma [facility] Creatinine [Mass/vol ume] in Serum or Plasma [facility] Creatinine [Mass/vol ume] in Serum or Plasma [facility] Creatinine [Mass/vol ume] in Serum or Plasma [facility] Creatinine [Mass/vol ume] in Serum or Plasma [facility] Creatinine [Mass/vol ume] in Serum or Plasma [facility] Erythrocyte mean corpuscular volume determination [facility] Erythrocyte mean corpuscular volume determination [facility] Erythrocyte mean corpuscular volume determination [facility] Erythrocyte mean corpuscular volume determination [facility] Erythrocyte mean corpuscular volume determination [facility] Erythrocyte mean corpuscular volume determination [facility] Erythrocyte mean corpuscular volume determination [facility] Glucose [Mass/volume ] in Serum or Plasma [facility] Glucose [Mass/volume ] in Serum or Plasma [facility] Glucose [Mass/volume ] in Serum or Plasma [facility] Glucose [Mass/volume ] in Serum or Plasma [facility] Glucose [Mass/volume ] in Serum or Plasma [facility] Glucose [Mass/volume ] in Serum or Plasma [facility] Glucose [Mass/volume ] in Serum or Plasma [facility] Hematocrit [Volume Fraction] of Blood [facility] Hematocrit [Volume Fraction] of Blood [facility] Hematocrit [Volume Fraction] of Blood [facility] Hematocrit [Volume Fraction] of Blood [facility] Hematocrit [Volume Fraction] of Blood [facility] Hematocrit [Volume Fraction] of Blood [facility] Hematocrit [Volume Fraction] of Blood [facility] Hemoglobin [Mass/vol ume] in Blood [facility] Hemoglobin [Mass/vol ume] in Blood [facility] Hemoglobin [Mass/vol ume] in Blood [facility] Hemoglobin [Mass/vol ume] in Blood [facility] Hemoglobin [Mass/vol ume] in Blood [facility] Hemoglobin [Mass/vol ume] in Blood [facility] Hemoglobin [Mass/vol ume] in Blood [facility] Leukocytes [#/volume ] in Blood [facility] Leukocytes [#/volume ] in Blood [facility] Leukocytes [#/volume ] in Blood [facility] Leukocytes [#/volume ] in Blood [facility] Leukocytes [#/volume ] in Blood [facility] Leukocytes [#/volume ] in Blood [facility] Leukocytes [#/volume ] in Blood [facility] Mean corpuscular hemoglobin concentration determination [facility] Mean corpuscular hemoglobin concentration determination [facility] Mean corpuscular hemoglobin concentration determination [facility] Mean corpuscular hemoglobin concentration determination [facility] Mean corpuscular hemoglobin concentration determination [facility] Mean corpuscular hemoglobin concentration determination [facility] Mean corpuscular hemoglobin concentration determination [facility] Mean corpuscular hemoglobin determination [facility] Mean corpuscular hemoglobin determination [facility] Mean corpuscular hemoglobin determination [facility] Mean corpuscular hemoglobin determination [facility] Mean corpuscular hemoglobin determination [facility] Mean corpuscular hemoglobin determination [facility] Mean corpuscular hemoglobin determination [facility] Measurement of renal function [facility] Measurement of renal function [facility] Measurement of renal function [facility] Measurement of renal function [facility] Measurement of renal function [facility] Measurement of renal function [facility] Measurement of renal function [facility] Neutrophil count [facility] Neutrophil count [facility] Neutrophil count [facility] Neutrophil count [facility] Neutrophil count [facility] Neutrophil count [facility] Neutrophil count [facility] Neutrophil percent differential count [facility] Neutrophil percent differential count [facility] Neutrophil percent differential count [facility] Neutrophil percent differential count [facility] Neutrophil percent differential count [facility] Neutrophil percent differential count [facility] Neutrophil percent differential count [facility] Patient Education [facility] Work Phone: Platelets [#/volume] in Blood [facility] Platelets [#/volume] in Blood [facility] Platelets [#/volume] in Blood [facility] Platelets [#/volume] in Blood [facility] Platelets [#/volume] in Blood [facility] Platelets [#/volume] in Blood [facility] Platelets [#/volume] in Blood [facility] Potassium measurement [facility] Potassium measurement [facility] Potassium measurement [facility] Potassium measurement [facility] Potassium measurement [facility] Potassium measurement [facility] Potassium measurement [facility] Red blood cell count [facility] Red blood cell count [facility] Red blood cell count [facility] Red blood cell count [facility] Red blood cell count [facility] Red blood cell count [facility] Red blood cell count [facility] Red cell distributio n width determination [facility] Red cell distributio n width determination [facility] Red cell distributio n width determination [facility] Red cell distributio n width determination [facility] Red cell distributio n width determination [facility] Red cell distributio n width determination [facility] Red cell distributio n width determination [facility] Serum chloride measurement [facility] Serum chloride measurement [facility] Serum chloride measurement [facility] Serum chloride measurement [facility] Serum chloride measurement [facility] Serum chloride measurement [facility] Serum chloride measurement [facility] Sodium measurement [facility] Sodium measurement [facility] Sodium measurement [facility] Sodium measurement [facility] Sodium measurement [facility] Sodium measurement [facility] Sodium measurement [facility] Urea nitrogen [Mass/volume] in Serum or Plasma [facility] Urea nitrogen [Mass/volume] in Serum or Plasma [facility] Urea nitrogen [Mass/volume] in Serum or Plasma [facility] Urea nitrogen [Mass/volume] in Serum or Plasma [facility] Urea nitrogen [Mass/volume] in Serum or Plasma [facility] Urea nitrogen [Mass/volume] in Serum or Plasma [facility] Urea nitrogen [Mass/volume] in Serum or Plasma [facility] Immunizations Immunization Date Immunization Notes Care Provider [facility] 11-09-2024 Seasonal trivalent influenza vaccine, adjuvanted, preservative free JHONNY VALENCIA MD [facility] 10-11-2021 SARS-CoV-2 (COVID-19 ) [id number] vaccine JHONNY VALENCIA MD [facility] 11-05-2020 pneumococcal conjuga te vaccine, 13 valraoul VALENCIA MD [facility] 11-05-2020 influenza virus vacc ine, unspecified formulation Elvin Blanc PA-C Work Phone: [facility] 09-23-2019 pneumococcal polysaccharide vaccine, 23 valent JHONNY VALENCIA MD [facility] Payers Date Payer Category Payer Self-pay [id number] 2025 Private Health Insurance [id number] 2024 Private Health Insurance [id number] 2024 Medicare supplementa l policy (as second payer) [employer] [id number] 2024 Unknown [id number] 2024 Medicare (Managed Care) [employer] DICARE VALUE PLAN [id number] 2024 Medicare [id number] 2023 Medicare [id number] 2023 Medicare [id number] 2023 Unknown [id number] 2023 Unknown [facility] [id number] 2023-Present [address] [place] [address] [id number] 1954 Unknown [id number] 2.16.840.1.897052.3.579.2 .627 1954 Unknown [id number] 2.16.840.1.648118.3.579.2 .627 1954 Unknown [id number] 2.16.840.1.853801.3.579.2 .627 1954 Unknown [id number] 2.16.840.1.437871.3.579.2 .1244 1954 Unknown [id number] 2.16.840.1.244672.3.579.2 .651 1954 Unknown [id number] 2.16.840.1.161689.3.579.2 .651 1954 Unknown [id number] 2.16.840.1.558062.3.579.2 .651 1954 Unknown [id number] 2.16.840.1.918143.3.579.2 .651 1954 Unknown [id number] 2.16.840.1.423557.3.579.2 .651 1954 Unknown [id number] 2.16.840.1.973547.3.579.2 .651 1954 Unknown [id number] 2.16.840.1.989664.3.579.2 .651 1954 Unknown [id number] 2.16.840.1.784022.3.579.2 .651 1954 Unknown [id number] 2.16.840.1.764729.3.579.2 .65 1954 Unknown [id number] 2.16.840.1.385982.3.579.2 .65 1954 Unknown [id number] 2.16.840.1.893140.3.579.2 .651 Unknown [id number] 2.16840.1.123135.3.579.2 .462 Unknown [id number] 2.16840.1.255938.3.579.2 .462 Unknown [id number] 2.16840.1.108736.3.579.2 .462 Unknown [id number] 2.840.1.558175.3.579.2 .462 Unknown [id number] 2.16840.1.771504.3.579.2 .462 Unknown [id number] 2.16840.1.705665.3.579.2 .462 Unknown [id number] 2.16840.1.568515.3.579.2 .462 Unknown [id number] 2.16840.1.117844.3.579.2 .462 Unknown [id number] 2.16840.1.950026.3.579.2 .462 Unknown [id number] 2.16.840.1.240767.3.579.2 .462 Unknown [id number] 2.16.840.1.116451.3.579.2 .462 Unknown [id number] 2.16.840.1.646304.3.579.2 .462 Unknown [id number] 2.16.840.1.956911.3.579.2 .462 Unknown [id number] 2.16840.1.898740.3.579.2 .462 Unknown [id number] 2.16.840.1.252379.3.579.2 .462 Unknown [id number] 2.16.840.1.577504.3.579.2 .462 Unknown [id number] 2.16.840.1.209868.3.579.2 .462 Unknown [id number] 2.16.840.1.978275.3.579.2 .462 Unknown [id number] 2.16.840.1.255331.3.579.2 .462 Unknown [id number] 2.16.840.1.641275.3.579.2 .462 Unknown [id number] 2.16.840.1.690371.3.579.2 .462 Unknown [id number] 2.16.840.1.700719.3.579.2 .462 Social History Date Type Detail Facility Tobacco smoking status [facility] Start: 09-18-2023 End: 07-21-2025 Tobacco smoking status AKIS Smokes tobacco daily [facility] Work Phone: History of tobacco use Cigarette Smoker [facility] Work Phone: Start: 09-18-2023 Tobacco use and exposure Smokeless tobacco non-user [facility] Work Phone: Start: 09-18-2023 End: 10-03-2024 Alcohol intake Lifetime non-drinker (finding) [facility] Work Phone: Start: 09-18-2023 History of Social function [facility] Work Phone: Start: 09-18-2023 Tobacco use panel [facility] Work Phone: Start: 1955 Sex Assigned At Not on file [facility] Work Phone: Start: 09-08-2023 End: 10-03-2024 Exposure to SARS-CoV-2 (event) Not sure [facility] Start: 2024 Tobacco smoking status Light tobacco smoker (finding) [facility] Tobacco smoking status Heavy tobacco smoker (finding) [facility] Start: 06-18-2011 Sex Female (finding) [facility] Start: 1955 Sex Assigned At Female [facility] Goals Date Patient Goal Desired Activity /State Functional Status Date Assessment Result Facility 07-26-2025 Functional status Ambulates [facility] Work Phone: 07-23-2025 Functional status Chair [facility] Work Phone: 11-09-2024 Functional Status Room check performed [facility] 11-09-2024 Functional Status [facility] 11-09-2024 Functional Status [facility] 11-09-2024 Functional Status 3am-7am [facility] 11-09-2024 Functional Status [facility] 11-09-2024 Functional Status Independent [facility] [facility] 11-08-2024 Functional Status Activity Josué tance Independent [facility] 11-08-2024 Functional Status [facility] 11-08-2024 Functional Status Dinner Percent 100 [facility] 11-08-2024 Functional Status [facility] 11-08-2024 Functional Status bilateral knee high removed/off [facility] 11-07-2024 Functional Status [facility] 11-06-2024 Functional Status Min A [facility] 11-05-2024 Functional Status Special Call D evice Unable to use call device [facility] 11-05-2024 Functional Status [facility] 11-05-2024 Functional Status [facility] 11-05-2024 Functional Status NPO Status Maintained [facility] 11-05-2024 Functional Status Single level home [facility] 11-05-2024 Functional Status [facility] 11-05-2024 Functional Status [facility] 11-04-2024 Functional Status Sensory Deficits None [facility] 09-06-2023 Functional Status Room check performed [facility] 09-05-2023 Functional Status [facility] 09-05-2023 Functional Status Done [facility] 09-05-2023 Functional Status 90 [facility] 09-05-2023 Functional Status [facility] 09-04-2023 Functional Status Single level home [facility] 09-04-2023 Functional Status [facility] 09-04-2023 Functional Status Transparent silicone dr essing [facility] 09-04-2023 Functional Status [facility] 09-04-2023 Functional Status Ambulation Up with assi stance [facility] 09-03-2023 Functional Status [facility] 09-03-2023 Functional Status [facility] 09-03-2023 Functional Status [facility] 09-03-2023 Functional Status [facility] 09-03-2023 Functional Status [facility] 09-03-2023 Functional Status Maintained [facility] 09-03-2023 Functional Status [facility] 09-03-2023 Functional Status [facility] Mental Status Date Assessment Result Facility 07-26-2025 Cognitive function Voice/Name [facility] Work Phone: 07-23-2025 Cognitive function Voice/Name [facility] Work Phone: 11-09-2024 [facility] 11[facility]08-2024 Mental Status [facility] 11-07-2024 Mental Status [facility] 09-06-2023 Mental Status [facility] 09-05-2023 Mental Status [facility] Clinical Notes 09-02-2023 to 07-26-2025 Note Date & Type Note Facility 07-26-2025 Discharge summary Note Date/Time July 26, 2025 12:44pm [facility] Medical Records Department [address] [place] [address] Transfer to [facility] MR#: [id number] Acct: [id number] Name: ZABRINA HSU Rep #:[id number] : 1955 70 From: Renee Encarnacion MD PCP: SEUN Alvarez Status:ADM IN Certification of patient admission REQUIRED AT TIME OF ADMISSION. I CERTIFY THAT POST-HOSPITAL ECF SERVICES ARE REQUIRED TO BE GIVEN ON AN IN-PATIENT BASIS BECAUSE OF THE ABOVE NAMED PATIENT'S NEED FOR LONGTERM CARE ON A CONTINUING BASIS FOR THE CONDITION(S) FOR WHICH HE/SHE WAS RECEIVING IN-PATIENT HOSPITAL SERVICES PRIOR TO HIS/HER TRANSFER TO THE F. 07/26/25 1244<Electronically signed by Renee Encarnacion MD> Diet Diet Order/Speech Therapy: INPATIENT Hospital Diet / Speech Therapy Order(s) 07/25/25 14:25 Diet: Regular - General Food consistency:: Easy to Chew Liquid Consistency:: Regular/Thin Type of Dietary Supplement:: Ensure Plus High Protein Diet Comments: 240mL vanilla EPHP with all meals Speech Therapy Comments: Distant supervision, Alternate bites/sips Routine Orders/Code Status Enema Type: Fleetz Enema Frequency: Daily PRN Suppository Type: Dulcolax 10mg Suppository Frequency: Daily PRN DC O2, CPAP, BIPAP needs Home O2 Discharge instructions: Yes Type of respiratory needs?: Oxygen Oxygen frequency: Continuous Continuous oxygen liters per minute: 2 Therapies Weight Bearing: Weight bearing as tolerated Physical Therapy: Eval and Treat Occupational Therapy: Eval and Treat Problem/Diagnosis (1) Acute respiratory failure with hypoxia and hypercapnia: Status: Acute Code(s): J96.01 - Acute respiratory failure with hypoxia; J96.02 - Acute respiratory failure with hypercapnia (2) Pneumonia: Status: Acute Code(s): J18.9 - Pneumonia, unspecified organism Plan #Acute on chronic hypoxic respiratory failure * Patient extubated on 07/21/2025. * Thought to be due to acute exacerbation of COPD as well as heart failure and possible pneumonia. On empiric IV ceftriaxone and azithromycin. * Urine for strep and Legionella negative. Respiratory panel negative. * passed repeat swallow eval after failing the first one and is now on a modified diet. * On p.o. Lasix. On p.o. prednisone now. * completed a 7 day course of antibiotics * now down to 2L of oxygen which is her baseline * #Elevated troponin: * 2D echo showed EF of 55% and inferior hypokinesis. * Thought to be due to demand ischemia from hypertension and respiratory failure. No need for further workup now. #Hypertension * Was admitted with hypertensive emergency. Blood pressure is better controlled now. * Blood pressure was markedly elevated at 257/127 on admission and there were concerns of flash pulmonary edema. * She did require nicardipine drip during the admission. * oral meds resumed- on amlodipine 10 mg daily and metoprolol 25 mg twice daily. * IV hydralazine as needed. * #Hypokalemia: Potassium is 3.1 today. Replace and trend. #CAD s/p stents: On sublingual nitroglycerin. On aspirin daily and high intensity statin #History of AVNRT: * patient noted to be tachycardic. On metoprolol 25mg bid. * However, HR up to the 120s-140s. Will increase metoprolol to 50mg bid. * 2D echo from 07/16/2025 showed mild concentric LV hypertrophy and inferior hypokinesis with stage I diastolic dysfunction and estimated EF of 55% as well as aortic valve sclerosis without stenosis. * I thnk it is reasonable to get cardiology consult due to her persistent tachycardia and 2D echo findings. * In comparison, 2D echo from 12/27/2016 which is only previous echo on file showed mild focal apical segmental left ventricular dysfunction with preserved EF of 65%. 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 Currently stable. #Hyperlipidemia: On statin #Depression: On venlafaxine #History of glaucoma: On brimonidine and dorzolamide eyedrops DVT prophylaxis: Lovenox Disposition: Patient now agreeable to going to a [facility]. Case management on board.She did get precert today, but has remained tachycardic with HR going up to the 140s. Allergies/Procedures Done in Hospital Allergies No Known Allergies Allergy (Unverified 06/16/21 14:41) Procedures: 2-D Echocardiogram Type of Care/Length of Stay Estimated LOS: Convalescent Care Less Than 30 days Type of Care Needed: Skilled Rehab Potential: Fair Prognosis: Fair Additional Orders/Day of Discharge Day of Discharge: 07/26/25 Dietary and Speech Recommendations Dietitian Recommendations/Changes: Adjust to liberal regular diet due to low BMI. Will order 240ml vanilla EPHP TID with meals. Will monitor weight trends. Discharge Plan Admission Admit Date/Time: 07/16/25 06:21 Primary Reason for Your Visit: acute hypoxic respiratory failure due to COPD exacerbation Attending Provider: Renee Encarnacion Primary Care Provider: Alfonso Ozuna NP Consulting Providers: Jack Zuniga; Gerard Santos; Gregory Galvan; Danish Crawford; Earline Camargo; Analy Davis; Lakisha Dunn; Apple Carvalho; Marcos Alfredo; Mark Garrido; Nathan Bill; Eleazar Valle; Jack Vo; Reid Murillo; Harpreet Gray; Cathie Cantu; Dmitri James; Ricardo Garcia; Kennedy Becerra; Laura Rodas; Ruth Altamirano; Deepa Blanco; Taran Garcia; Rufus Barker; Alonso Mcknight; Emmett Brown; Tess Dietrich; Coleen Tejada; Ramon Mckeon; Davon Mcguire; Catia Mercer; Mau Hoover; Kendall Doran Instructions Patient Instructions: COPD: Wheezing and Chest Tightness, Discharge Instructions: COPD Discharge Orders/Prescriptions Prescriptions: New prednisone 20 mg Tablet 40 mg PO BREAKFAST Qty: 2 0RF amlodipine 10 mg Tablet 10 mg PO DAILY Qty: 30 2RF metoprolol tartrate 50 mg Tablet 50 mg PO BID Qty: 60 2RF Continued nitroglycerin 0.4 mg tablet, sublingual 0.4 mg SUBLINGUAL Q5-15M PRN (Reason: chest pain) aspirin [Adult Low Dose Aspirin] 81 mg tablet,delayed release (DR/EC) 81 mg PO DAILY atorvastatin 40 mg tablet 40 mg PO QHS oxybutynin chloride 10 mg tablet extended release 24hr 10 mg PO DAILY albuterol sulfate [Ventolin HFA] 90 mcg/actuation HFA aerosol inhaler 2 puff INHALATION Q4H PRN (Reason: shortness of breath or wheezing) Qty: 8.5 6RF brimonidine 0.2 % drops ophthalmic (eye) dorzolamide 2 % drops 1 drp ophthalmic (eye) TID lisinopril 20 mg tablet 20 mg PO DAILY Qty: 90 3RF furosemide 40 mg tablet 40 mg PO DAILY clopidogrel 75 mg tablet 75 mg PO DAILY OXYGEN - Supplemental ([facility] INFORMATIONAL USE ONLY) Patient Comments: 2 LPM at all times Discontinued spironolactone 25 mg tablet 25 mg PO DAILY Referrals / Follow Up: Alfonso Ozuna NP, NP-C [Primary Care Provider, [facility]] - Within 1 Week Adriana Wiggins NP-C [Med Staff - [facility] Prof, Pulmonology] - 08/26/25 1:15 pm Disposition Disposition (needs filled in before D/C Order can be placed): Group Home Facility (2) Pneumonia Qualifiers: Pneumonia type: due to unspecified organism Laterality: bilateral Lung location: unspecified part of lung Qualified Code(s): J18.9 - Pneumonia, unspecified organism 07/26/25 1244 <Electronically signed by Renee Encarnacion MD> Cosigner Signature (if applicable): CC: GEOSCIENTIST-C Alfonso Ozuna; GEOSCIENTIST-C Earline Camargo; GEOSCIENTIST-C Apple Carvalho; GEOSCIENTIST-C Analy Davis; Dr. Mark Garrido MD; Dr. Marcos Alfredo MD; Dr. Nathan Bill MD; Dr. Jack Vo MD; Dr. Jack Zuniga DO; Dr. Eleazar Valle DO; Dr. Reid Murillo MD; Dr. Gerard Santos DO; Dr. Harpreet Gray MD; Dr. Dmitri James MD; Dr. Ricardo Garcia MD; Dr. Kennedy Becerra MD; Dr. Laura Rodas MD; Dr. Ruth Altamirano MD; Dr. Deepa Blanco MD; Dr. Kendall Doran MD; Dr. Rufus Barker MD; Dr. Gregory Galvan MD; Dr. Taran Garcia MD; Dr. Alonso Mcknight MD; Dr. Coelen Tejada MD; Dr. Tess Dietrich MD; Dr. Emmett Brown DO;Dr. Ramon Mckeon DO; Dr. Catia Mercer MD; Dr. Davon Mcguire MD; Dr. Mau Hoover MD; Dr. Cathie Cantu MD; SHEILA Ellington; Danish Crawford DO ~ [facility] Work Phone: [phone]) 872-355410-04-2025 Discharge summary Author Renee [facility] Note Date/Time July 26, 2025 4: 01pm [facility] Medical Records Department [address] [place] [address] Discharge Summary 07/26/25 1244 MR#: [id number] Acct: [id number] Name: ZABRINA HSU Rep #:[id number] : 1955 70 From: Renee Encarnacion MD PCP: SEUN Alvarez Status:DIS IN Location: [place] [address] Providers Date of Admission: 07/16/25 Date of Discharge: 07/26/25 Primary Care Physician: SEUN Alvarez Consultations 07/16/25 07:56 Consult: Aoc Director Intelligence Officer / Pulmonary Medicine Routine Consulting Provider: Intensivists/Pulmonary Med Reason for Consult: AE COPD, Resp Failure on Vent, AE CHF, Hypertensive Emergency and Sepsis. EMERGENT Consult: No Notified: Yes Date Notified: 07/16/25 Time Notified: 06:29 Method of Notification: ED Physician Initiated 07/22/25 08:00 Consult: Inpatient Palliative Care Routine Consulting Provider: Apple Carvalho Reason for Consult: Assist with management of air hunger/anxiety, goals of care EMERGENT Consult: No Notified: Yes Date Notified: 07/22/25 Time Notified: 08:00 Method of Notification: Text Comments:: Dr. Valle spoke with Apple. 07/24/25 08:51 Consult: Gastroenterology Routine Consulting Provider: Randy Gastroenterology Reason for Consult: dysphagia EMERGENT Consult: No Notified: Yes Date Notified: 07/24/25 Time Notified: 08:51 Method of Notification: Text 07/25/25 15:35 Consult: Cardiology Routine Consulting Provider: Kendall Doran Reason for Consult: persistent tachycardia, abnormal echo EMERGENT Consult: No MD Notified: Yes Date Notified: 07/25/25 Time Notified: 15:35 Method of Notification: Verbal Reason For Visit: AE COPD, [id number] RESP FAILURE Diagnosis Discharge Diagnosis (1) Acute respiratory failure with hypoxia and hypercapnia: Status: Acute Code(s): J96.01 - Acute respiratory failure with hypoxia; J96.02 - Acute respiratory failure with hypercapnia (2) Pneumonia: Status: Acute Code(s): J18.9 - Pneumonia, unspecified organism Qualifiers: Laterality: bilateral Lung location: unspecified part of lung Pneumonia type: due to unspecified organism Qualified Code(s): J18.9 - Pneumonia, unspecified organism Plan #Acute on chronic hypoxic respiratory failure * Patient extubated on 07/21/2025. * Thought to be due to acute exacerbation of COPD as well as heart failure and possible pneumonia. On empiric IV ceftriaxone and azithromycin. * Urine for strep and Legionella negative. Respiratory panel negative. * passed repeat swallow eval after failing the first one and is now on a modified diet. * On p.o. Lasix. On p.o. prednisone now. * completed a 7 day course of antibiotics * now down to 2L of oxygen which is her baseline * #Elevated troponin: * 2D echo showed EF of 55% and inferior hypokinesis. * Thought to be due to demand ischemia from hypertension and respiratory failure. No need for further workup now. #Hypertension * Was admitted with hypertensive emergency. Blood pressure is better controlled now. * Blood pressure was markedly elevated at 257/127 on admission and there were concerns of flash pulmonary edema. * She did require nicardipine drip during the admission. * oral meds resumed- on amlodipine 10 mg daily and metoprolol 25 mg twice daily. * IV hydralazine as needed. * #Hypokalemia: Potassium is 3.1 today. Replace and trend. #CAD s/p stents: On sublingual nitroglycerin. On aspirin daily and high intensity statin #History of AVNRT: * patient noted to be tachycardic. On metoprolol 25mg bid. * However, HR up to the 120s-140s. Will increase metoprolol to 50mg bid. * 2D echo from 07/16/2025 showed mild concentric LV hypertrophy and inferior hypokinesis with stage I diastolic dysfunction and estimated EF of 55% as well as aortic valve sclerosis without stenosis. * I thnk it is reasonable to get cardiology consult due to her persistent tachycardia and 2D echo findings. * In comparison, 2D echo from 12/27/2016 which is only previous echo on file showed mild focal apical segmental left ventricular dysfunction with preserved EF of 65%. 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 Currently stable. #Hyperlipidemia: On statin #Depression: On venlafaxine #History of glaucoma: On brimonidine and dorzolamide eyedrops DVT prophylaxis: Lovenox Disposition: Patient now agreeable to going to a [facility]. Case management on board.She did get precert today, but has remained tachycardic with HR going up to the 140s. Medications at Discharge Home Medications aspirin 81 mg tablet,delayed release (Adult Low Dose Aspirin) 81 mg PO DAILY heart 07/08/19 atorvastatin 40 mg tablet 40 mg PO QHS cholestrol 07/08/19 nitroglycerin 0.4 mg sublingual tablet 0.4 mg sublingual Q5-15M PRN chest pain 07/08/19 oxybutynin chloride 10 mg tablet,extended release 24 hr 10 mg PO DAILY overactive bladd 07/08/19 albuterol sulfate 90 mcg/actuation aerosol inhaler (Ventolin HFA) 2 puff inhalation Q4H PRN shortness of breath or wheezing #8.5 grams 12/23/20 brimonidine 0.2 % eye drops ml ophthalmic (eye) eyes 06/16/21 dorzolamide 2 % eye drops 1 drp ophthalmic (eye) TID eyes 06/16/21 lisinopril 20 mg tablet 20 mg PO DAILY #90 tabs 06/16/21 clopidogrel 75 mg tablet 75 mg PO DAILY heart 07/17/25 furosemide 40 mg tablet 40 mg PO DAILY heart 07/17/25 OXYGEN - Supplemental ([facility] INFORMATIONAL USE ONLY) COPD 07/18/25 amlodipine 10 mg tablet 10 mg PO DAILY #30 tabs 07/26/25 metoprolol tartrate 50 mg tablet 50 mg PO BID #60 tabs 07/26/25 prednisone 20 mg tablet 40 mg (2 x 20 mg) PO BREAKFAST #2 tabs 07/26/25 Hospital Course Operations None Procedures 2-D Echocardiogram Summary of Care Provided Minutes Spent on Discharge: 45 Hospital Course: Patient is a 70-year-old female with an extensive past medical history as outlined was admitted to the ED on 07/16/2025 with a complaint of shortness of breath. His symptoms have been going on for several days prior to admission. On admission in the ED she was noted to have a markedly elevated blood pressure of 257/127. She was placed on BiPAP immediately in the ED but subsequently had to be intubated due to persistent respiratory distress. Lactic acid was elevated at 3.2 and WBC was 13.1. She was admitted to the ICU to be managed foracute on chronic hypoxic respiratory failure due to COPD exacerbation and pneumonia as well as hypertensive emergency. CTA of the chest done was negativefor any evidence of PE and showed underlying female with superimposed interstitial edema and pneumonitis as well as free-flowing bilateral pleural effusions and bibasilar atelectasis. Critical care was consulted. Patient had a prolonged and protracted hospital course. She was placed on broad-spectrum antibiotics. She was subsequently extubated on 07/21/2025. She was diuresed with IV Lasix as well as IV Solu-Medrol and completed a 7-day course of antibiotics. 2D echo showed EF of 55% and inferior hypokinesis and elevated troponins were thought to be due to demand ischemia from the hypoxia. Blood pressure subsequently improved and she was resumed on her oral medication-amlodipine 10 mg daily and metoprolol 25 mg twice daily. Hospital course was also complicated by hypokalemia which was replaced aggressively. She was noted to be tachycardic during this admission with her heart rate going up to the 160s. Cardiology was consulted. However her heart rate subsequently normalizedand she felt better. She was therefore continued on her metoprolol. She was discharged to nursing home facility on 07/26/2025. She is follow-up with her primary care doctor within 1 to 2 weeks. Cardiology reviewed and thought she had multifocal atrial tachycardia but her heart rate was currently controlled onher metoprolol. Her metoprolol was increased to 50 mg twice daily on discharge. She was also discharged on p.o. prednisone 40 mg daily to complete a 5-day course. Patient seen and examined prior to discharge. She felt much better and had no complaints. She had an uneventful night. Review of systems otherwise negative. Labs and vitals reviewed. Home medication reviewed and reconciled. Physical Exam Const alert, oriented x3 and no apparent distress General Appearance: cooperative and comfortable HEENT normocephalic, head/scalp atraumatic, hearing grossly normal bilaterally, moist oral mucous membranes and oropharynx normal Mouth: oral and palatal mucosa normal Eyes PERRL, EOMs intact bilaterally and conjunctivae normal Neck no lymphadenopathy and supple Lymph Lymphatic: no lymphedema noted Resp Resp Narrative: mildly diminished breath sounds bibasally, no wheezes or crackles. On room air. Cardio regular rate, regular rhythm, S1 normal heart sound, S2 normal heart sound and no murmurs Cardio Narrative: tachycardia GI normal to inspection, nondistended, normoactive bowel sounds, soft to palpation,non-tender, non-distended and hepatosplenomegaly Extremity normal to inspection, full ROM, normal capillary refill and no clubbing, cyanosis or edema General Extremity: no tenderness to palpation of joints or extremities Skin no rashes or lesions noted General Skin Exam: no breakdown Neuro oriented x3, CN's II-XII intact bilaterally, moves all extremities, no focal motor deficits and no sensory deficits noted Sensorium / Orientation: awake and alert Motor Exam: general weakness Psych thought process normal Appearance: appropriate Weight / BMI Weight Weight: 100 lb 8.493 oz Body Mass Index (BMI) 17.2 ABG / Lab / Microbiology Data 07/26/25 05:55 07/26/25 05:55 Laboratory: Laboratory Results - last 24 hr 07/25/25 16:20: D-Dimer Quant (PE/DVT) 1.10 H* 07/25/25 17:12: POC Glucose 163 H 07/25/25 23:13: POC Glucose 114 H 07/26/25 05:46: POC Glucose 101 07/26/25 05:55: WBC 10.4, RBC 3.39 L, Hgb 9.6 L, Hct 28.6 L, MCV 84.4, MCH 28.3,MCHC 33.6, RDW Std Deviation 43.3, RDW Coeff of Shivam 14.0, Plt Count 482 H, MPV 9.6, Immature Gran % (Auto) 2.900 H, Neut % (Auto) 59.4, Lymph % (Auto) 27.0, [place] % (Auto) 9.7, Eos % (Auto) 0.9, Baso % (Auto) 0.1, Absolute Neuts (auto) 6.2, Absolute Lymphs (auto) 2.80, Nucleated RBC % 0, Sodium 135, Potassium 2.8 L, Chloride 96 L, Carbon Dioxide 25.7, Anion Gap 13, BUN 21 H, Creatinine 0.70, Estim Creat Clear Calc 46.43 L, Est GFR (MDRD) Non-Af 92, BUN/Creatinine Ratio 30.2 H, Glucose 98, Calcium 8.9, Magnesium 2.2 Microbiology: Microbiology 07/16/25 04:20 Blood Culture (Wb) - Left Hand Blood Culture - Final No growth in 5 days. 07/16/25 04:05 Blood Culture (Wb) - Right Hand Blood Culture - Final No growth in 5 days. 07/16/25 03:44 Urine, Catheterized Urine Culture - Final Culture exhibits no growth. 07/16/25 03:36 Sputum, Induced/Lukens Gram Stain - Final 07/16/25 03:36 Sputum, Induced/[place]ukens Respiratory Culture - Final Mixed normal respiratory renu. No Streptococcus pneumoniae, beta-hemolytic Streptococcus or Staphylococcus aureus isolated. 07/16/25 10:30 Nasal Secretion MRSA (PCR) - Final 07/16/25 09:20 Mucosa - Nasopharyngeal Respiratory Panel (PCR) - Final 07/16/25 08:25 Urine Catheter - [place] Legionella Antigen - Final 07/16/25 08:25 Urine Catheter - [place] Streptococcus pneumoniae Antigen (M - Final 07/16/25 03:44 Mucosa - Nose SARS-CoV-2, Influenza & RSV (PCR) - Final Radiography Diagnostic Testing: Radiology Impression Chest CTA 07/25/25 17:41 IMPRESSION: 1. No evidence of pulmonary embolism. 2. No focal lung consolidation. 3. Interval resolution of bilateral pleural effusions. 4. Atherosclerotic disease of the thoracic aorta. Reading Location: [id number] D/C Instructions Discharge Activity: Return to Normal Activity Weight Bearing Status: Weight bearing as tolerated Call your doctor if you observe: Fever of 101 or Higher, Shortness of breath, Dizziness, Swelling in the ankles and Chest pain DC O2, CPAP, BIPAP Needs Home O2 Discharge instructions: Yes Type of respiratory needs?: Oxygen Oxygen frequency: Continuous Continuous oxygen liters per minute: 2 DC home with Oxygen: Yes Home O2 Review: I have reviewed the oxygen testing, and the patient qualifies for home oxygen equipment and portability. The patient is mobile in the home and the community. Meaningful Use Info Meaningful Use Meaningful Use Diagnoses (Choose all that apply): None applicable Discharge Plan Admission Admit Date/Time: 07/16/25 06:21 Primary Reason for Your Visit: acute hypoxic respiratory failure due to COPD exacerbation Attending Provider: Renee Encarnacion Primary Care Provider: Alfonso Ozuna NP Consulting Providers: Jack Zuniga; Gerard Santos; Gregory Galvan; Danish Crawford; Earline Camargo; Analy Davis; Lakisha Dunn; Apple Carvalho; Marcos Alfredo; Mark Garrido; Nathan Bill; Eleazar Valle; Jack Vo; Reid Murillo; Harpreet Gray; Cathie Cantu; Dmitri James; Ricardo Garcia; Kennedy Becerra; Laura Rodas; Ruth Altamirano; Deepa Blanco; Jose,Taran; Lucero,Rufus; Alonso Mcknight; Emmett Brown; Tess Dietrich; Coleen Tejada; Ramon Mckeon; Davon Mcguire; Catia Mercer; Mau Hoover; Kendall Doran Instructions Patient Instructions: COPD: Wheezing and Chest Tightness, Discharge Instructions: COPD Discharge Orders/Prescriptions Prescriptions: New prednisone 20 mg Tablet 40 mg PO BREAKFAST Qty: 2 0RF amlodipine 10 mg Tablet 10 mg PO DAILY Qty: 30 2RF metoprolol tartrate 50 mg Tablet 50 mg PO BID Qty: 60 2RF Continued nitroglycerin 0.4 mg tablet, sublingual 0.4 mg SUBLINGUAL Q5-15M PRN (Reason: chest pain) aspirin [Adult Low Dose Aspirin] 81 mg tablet,delayed release (DR/EC) 81 mg PO DAILY atorvastatin 40 mg tablet 40 mg PO QHS oxybutynin chloride 10 mg tablet extended release 24hr 10 mg PO DAILY albuterol sulfate [Ventolin HFA] 90 mcg/actuation HFA aerosol inhaler 2 puff INHALATION Q4H PRN (Reason: shortness of breath or wheezing) Qty: 8.5 6RF brimonidine 0.2 % drops ophthalmic (eye) dorzolamide 2 % drops 1 drp ophthalmic (eye) TID lisinopril 20 mg tablet 20 mg PO DAILY Qty: 90 3RF furosemide 40 mg tablet 40 mg PO DAILY clopidogrel 75 mg tablet 75 mg PO DAILY OXYGEN - Supplemental ([facility] INFORMATIONAL USE ONLY) Patient Comments: 2 LPM at all times Discontinued spironolactone 25 mg tablet 25 mg PO DAILY Referrals / Follow Up: Alfonso Ozuna NP GEOSCIENTIST-C [Primary Care Provider, [facility]] - Within 1 Week Adriana Wiggins NP-C [Med Staff - [facility], Pulmonology] - 08/26/25 1:15 pm Disposition Disposition (needs filled in before D/C Order can be placed): Group Home Facility Charges/Coding Visit Charges Inpatient E&M: 92058 Disch Hosp >30min 07/26/25 1719 <Electronically signed by Renee Encarnacion MD> Cosigner Signature (if applicable): CC: SEUN Ozuna; Dr. Renee Encarnacion MD~ Signed [facility] Work Phone: 1(456) 590-261810-04-2025 Hospital Discharge instructionsAdditional Instructions Date of Discharge: 07/26/25[facility] Work Phone: [phone]) 731-801610-04-2025 [facility]10-03-2025 Progress note [facility] Note Date/Time July 25, 2025 6: 48pm [facility] Medical Records Department [address] [place] [address] Progress Note 07/25/25 1515 MR#: [id number] Acct: [id number] Name: ZABRINA HSU Rep #:[id number] : 1955 70 From: Renee Encarnacion MD PCP: SEUN Alvarez Status:ADM IN Location: [place] [address] Subjective Subjective Patient seen and examined with her nurse by her bedside. She was lying comfortably in bed and had no active complaints. She had an uneventful night. Review of systems otherwise negative. She did get pre-CERT today and plan was to discharge her, but she became tachycardic with her HR going up to the 130 [id number] with movement. Discharge therefore canceled.s Objective Data Objective Data Vital Signs: Vital Signs Temp Pulse Resp BP Pulse Ox O2 Del Method O2 Flow Rate 97.8 F 64 16 161/74 H 100 Room Air 2 07/25/25 10:49 07/25/25 13:33 07/25/25 13:33 07/25/25 10:54 07/25/25 10:49 07/25/25 10:49 07/24/25 16:39 FiO2 99 07/23/25 07:25 Oxygen Flow Rate (L/min) 2 Oxygen Delivery Method Room Air Weight: 101 lb 6.602 oz Body Mass Index (BMI) 17.4 Intake & Output: Intake and Output for Last 24 Hours 07/23/25 07/24/25 07/25/25 23:59 23:59 23:59 Intake Total 688.33 / 688.33 Output Total 3100 / 3100 450 / 450 Balance -2411.67 / -2411.67 -450 / -450 Lab / Micro Data 07/25/25 05:21 07/25/25 05:21 Labs: Laboratory Results - last 24 hr 07/24/25 16:17: POC Glucose 135 H 07/24/25 21:10: POC Glucose 193 H 07/25/25 05:21: WBC 10.4, RBC 3.45 L, Hgb 9.9 L, Hct 29.8 L, MCV 86.4, MCH 28.7,MCHC 33.2, RDW Std Deviation 43.7, RDW Coeff of Shivam 13.9, Plt Count 499 H, MPV 9.5, Immature Gran % (Auto) 1.800 H, Neut % (Auto) 60.9, Lymph % (Auto) 25.5, [place] % (Auto) 10.5 H, Eos % (Auto) 1.1, Baso % (Auto) 0.2, Absolute Neuts (auto) 6.4, Absolute Lymphs (auto) 2.65, Nucleated RBC % 0, Sodium 137, Potassium 3.0 L, Chloride 98, Carbon Dioxide 26.7, Anion Gap 12, BUN 25 H, Creatinine 0.70, Estim Creat Clear Calc 46.84 L, Est GFR (MDRD) Non-Af 92, BUN/Creatinine Ratio 36.1 H, Glucose 102 H, Calcium 8.7 07/25/25 06:10: POC Glucose 111 H 07/25/25 12:19: POC Glucose 129 H Micro: Microbiology 07/16/25 04:20 Blood Culture (Wb) - Left Hand Blood Culture - Final No growth in 5 days. 07/16/25 04:05 Blood Culture (Wb) - Right Hand Blood Culture - Final No growth in 5 days. 07/16/25 03:44 Urine, Catheterized Urine Culture - Final Culture exhibits no growth. 07/16/25 03:36 Sputum, Induced/Lukens Gram Stain - Final 07/16/25 03:36 Sputum, Induced/Lukens Respiratory Culture - Final Mixed normal respiratory renu. No Streptococcus pneumoniae, beta-hemolytic Streptococcus or Staphylococcus aureus isolated. 07/16/25 10:30 Nasal Secretion MRSA (PCR) - Final 07/16/25 09:20 Mucosa - Nasopharyngeal Respiratory Panel (PCR) - Final 07/16/25 08:25 Urine Catheter - Madrigal Legionella Antigen - Final 07/16/25 08:25 Urine Catheter - Madrigal Streptococcus pneumoniae Antigen (M - Final 07/16/25 03:44 Mucosa - Nose SARS-CoV-2, Influenza & RSV (PCR) - Final Rhythm Strip Rhythm Strip: Sinus Tach Rate: 114 Physical Exam Const alert, oriented x3 and no apparent distress General Appearance: cooperative HEENT normocephalic, head/scalp atraumatic, moist oral mucous membranes and oropharynxnormal Eyes PERRL, EOMs intact bilaterally and conjunctivae normal Neck no lymphadenopathy and supple Lymph Lymphatic: no lymphedema noted Resp Resp Narrative: mildly diminished breath sounds bibasally, no wheezes or crackles. On room air. Cardio regular rhythm, S1 normal heart sound, S2 normal heart sound and no murmurs Cardio Narrative: tachycardia GI normal to inspection, nondistended, normoactive bowel sounds, soft to palpation,non-tender, non-distended and hepatosplenomegaly Extremity normal to inspection, full ROM, normal capillary refill and no clubbing, cyanosis or edema General Extremity: no tenderness to palpation of joints or extremities Skin Skin Narrative: Patient has no evidence of rash, abscess, wounds or jaundice. General Skin Exam: no breakdown Neuro moves all extremities, no focal motor deficits and no sensory deficits noted Sensorium / Orientation: awake and alert Motor Exam: general weakness Psych thought process normal Appearance: appropriate Assessment & Plan Assessment/Plan (1) Acute respiratory failure with hypoxia and hypercapnia: (2) Pneumonia: QUALIFIERS: Pneumonia type: due to unspecified organism Laterality: bilateral Lung location: unspecified part of lung Qualified Code(s): J18.9 - Pneumonia, unspecified organism PLAN: Plan #Acute on chronic hypoxic respiratory failure * Patient extubated on 07/21/2025. * Thought to be due to acute exacerbation of COPD as well as heart failure and possible pneumonia. On empiric IV ceftriaxone and azithromycin. * Urine for strep and Legionella negative. Respiratory panel negative. * passed repeat swallow eval after failing the first one and is now on a modified diet. * On p.o. Lasix. On p.o. prednisone now. * completed a 7 day course of antibiotics * now down to 2L of oxygen which is her baseline * #Elevated troponin: * 2D echo showed EF of 55% and inferior hypokinesis. * Thought to be due to demand ischemia from hypertension and respiratory failure. No need for further workup now. #Hypertension * Was admitted with hypertensive emergency. Blood pressure is better controlled now. * Blood pressure was markedly elevated at 257/127 on admission and there were concerns of flash pulmonary edema. * She did require nicardipine drip during the admission. * oral meds resumed- on amlodipine 10 mg daily and metoprolol 25 mg twice daily. * IV hydralazine as needed. * #Hypokalemia: Potassium is 3.1 today. Replace and trend. #CAD s/p stents: On sublingual nitroglycerin. On aspirin daily and high intensity statin #History of AVNRT: * patient noted to be tachycardic. On metoprolol 25mg bid. * However, HR up to the 120s-140s. Will increase metoprolol to 50mg bid. * 2D echo from 07/16/2025 showed mild concentric LV hypertrophy and inferior hypokinesis with stage I diastolic dysfunction and estimated EF of 55% as well as aortic valve sclerosis without stenosis. * I thnk it is reasonable to get cardiology consult due to her persistent tachycardia and 2D echo findings. * In comparison, 2D echo from 12/27/2016 which is only previous echo on file showed mild focal apical segmental left ventricular dysfunction with preserved EF of 65%. 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 Currently stable. #Hyperlipidemia: On statin #Depression: On venlafaxine #History of glaucoma: On brimonidine and dorzolamide eyedrops DVT prophylaxis: Lovenox Disposition: Patient now agreeable to going to a [facility]. Case management on board.She did get precert today, but has remained tachycardic with HR going up to the 140s. Charges/Coding Visit Charges Inpatient E&M: 72865 Subs Hosp L2 07/25/25 1848 <Electronically signed by Renee Encarnacion MD> Renee Encarnacion MD Cosigner Signature (if applicable): CC: ~ Signed [facility] Work Phone: 1(496) 233-863810-03-2025 Radiology Diagnostic study [facility]10-02-2025 Progress note Author Renee [facility] Note Date/Time July 24, 2025 5: 26pm [facility] Medical Records Department [address] [place] [id number] Progress Note 07/24/25 1712 MR#: [id number] Acct: [id number] Name: ZABRINA HSU Rep #:[id number] : 1955 70 From: Renee Encarnacion MD PCP: SEUN Alvarez Status:ADM IN Location: [place] [address] Subjective Subjective Patient seen and examined. She had no active complaints. She had had an uneventful night. There was concern that she will need GI evaluation for dysphagia. However speech therapy evaluated her again today and put her on a regular bite-size diet. Review of systems otherwise negative. She is on 2 L ofoxygen. She is now awaiting placement. Objective Data Objective Data Vital Signs: Vital Signs Temp Pulse Resp BP Pulse Ox O2 Del Method O2 Flow Rate 97.9 F 110 H 12 156/82 H 91 Nasal Cannula 2 07/24/25 16:39 07/24/25 16:39 07/24/25 16:39 07/24/25 16:39 07/24/25 16:39 07/24/25 16:39 07/24/25 16:39 FiO2 99 10/01/25 07:25 Oxygen Flow Rate (L/min) 2 Oxygen Delivery Method Nasal Cannula Weight: 103 lb 9.876 oz Body Mass Index (BMI) 17.7 Intake & Output: Intake and Output for Last 24 Hours 07/22/25 07/23/25 07/24/25 23:59 23:59 23:59 Intake Total 3219.58 / 3219.58 688.33 / 688.33 Output Total 7900 / 7900 3100 / 3100 450 / 450 Balance -4680.42 / -4680.42 -2411.67 / -2411.67 -450 / -450 Lab / Micro Data 07/24/25 07:30 07/24/25 07:30 Labs: Laboratory Results - last 24 hr 07/24/25 07:30: WBC 9.7, RBC 3.66 L, Hgb 10.5 L, Hct 31.8 L, MCV 86.9, MCH 28.7,MCHC 33.0, RDW Std Deviation 45.8 H, RDW Coeff of Shivam 14.4, Plt Count 464 H, MPV8.9, Immature Gran % (Auto) 1.700 H, Neut % (Auto) 60.9, Lymph % (Auto) 26.7, [place] % (Auto) 10.0, Eos % (Auto) 0.6, Baso % (Auto) 0.1, Absolute Neuts (auto) 5.9, Absolute Lymphs (auto) 2.58, Nucleated RBC % 0, Sodium 135, Potassium 3.1 L, Chloride 97 L, Carbon Dioxide 25.1, Anion Gap 12, BUN 36 H, Creatinine 0.85, Estim Creat Clear Calc 45.04 L, Est GFR (MDRD) Non-Af 73, BUN/Creatinine Ratio 41.8 H, Glucose 102 H, Calcium 8.8 07/24/25 07:53: POC Glucose 97 07/24/25 11:34: POC Glucose 138 H 07/24/25 16:17: POC Glucose 135 H Micro: Microbiology 07/16/25 04:20 Blood Culture (Wb) - Left Hand Blood Culture - Final No growth in 5 days. 07/16/25 04:05 Blood Culture (Wb) - Right Hand Blood Culture - Final No growth in 5 days. 07/16/25 03:44 Urine, Catheterized Urine Culture - Final Culture exhibits no growth. 07/16/25 03:36 Sputum, Induced/Lukens Gram Stain - Final 07/16/25 03:36 Sputum, Induced/Lukens Respiratory Culture - Final Mixed normal respiratory renu. No Streptococcus pneumoniae, beta-hemolytic Streptococcus or Staphylococcus aureus isolated. 07/16/25 10:30 Nasal Secretion MRSA (PCR) - Final 07/16/25 09:20 Mucosa - Nasopharyngeal Respiratory Panel (PCR) - Final 07/16/25 08:25 Urine Catheter - Madrigal Legionella Antigen - Final 07/16/25 08:25 Urine Catheter - Madrigal Streptococcus pneumoniae Antigen (M - Final 07/16/25 03:44 Mucosa - Nose SARS-CoV-2, Influenza & RSV (PCR) - Final Rhythm Strip Rhythm Strip: Sinus Tach Rate: 114 Physical Exam Const alert, oriented x3 and no apparent distress Constitutional Narrative: tearful, in mild distress General Appearance: cooperative HEENT normocephalic, head/scalp atraumatic, moist oral mucous membranes and oropharynxnormal Eyes PERRL, EOMs intact bilaterally and conjunctivae normal Neck no lymphadenopathy and supple Lymph Lymphatic: no lymphedema noted Resp normal respiratory effort Resp Narrative: mildly diminished breath sounds bibasally, no wheezes or crackles. On 2 L of oxygen by nasal canula Cardio regular rhythm, S1 normal heart sound, S2 normal heart sound and no murmurs Cardio Narrative: mildly tachycardic GI normal to inspection, nondistended, normoactive bowel sounds, soft to palpation,non-tender and non-distended Extremity normal to inspection, full ROM, normal capillary refill and no clubbing, cyanosis or edema General Extremity: no tenderness to palpation of joints or extremities Skin General Skin Exam: no breakdown Neuro moves all extremities, no focal motor deficits and no sensory deficits noted Sensorium / Orientation: awake and alert Motor Exam: general weakness Psych thought process normal Appearance: appropriate Assessment & Plan Assessment/Plan (1) Acute respiratory failure with hypoxia and hypercapnia: (2) Pneumonia: QUALIFIERS: Pneumonia type: due to unspecified organism Laterality: bilateral Lung location: unspecified part of lung Qualified Code(s): J18.9 - Pneumonia, unspecified organism PLAN: Plan #Acute on chronic hypoxic respiratory failure * Patient extubated on 07/21/2025. * Thought to be due to acute exacerbation of COPD as well as heart failure and possible pneumonia. On empiric IV ceftriaxone and azithromycin. * Urine for strep and Legionella negative. Respiratory panel negative. * passed repeat swallow eval after failing the first one and is now on a modified diet. * On p.o. Lasix. On p.o. prednisone now. * To complete a 7-day course of antibiotics. * now down to 2L of oxygen which is her baseline * #Elevated troponin: * 2D echo showed no regional wall motion abnormalities and showed EF of 55% and inferior hypokinesis. * Thought to be due to demand ischemia from hypertension and respiratory failure. No need for further workup now. #Hypertension * Was admitted with hypertensive emergency. Blood pressure is better controlled now. * Blood pressure was markedly elevated at 257/127 on admission and there were concerns of flash pulmonary edema. * She did require nicardipine drip during the admission. * oral meds resumed- on amlodipine 10 mg daily and metoprolol 25 mg twice daily. * IV hydralazine as needed. * #Hypokalemia: Potassium is 3.1 today. Replace and trend. #CAD s/p stents: On sublingual nitroglycerin. 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 Currently stable. #Hyperlipidemia: On statin #Depression: On venlafaxine #History of glaucoma: On brimonidine and dorzolamide eyedrops DVT prophylaxis: Lovenox Disposition: transfer to PCU Disposition: Patient now agreeable to going to a [facility]. Case management on board. Charges/Coding Visit Charges Inpatient E&M: 39564 Subs Hosp L2 07/24/25 1726 <Electronically signed by Renee Encarnacion MD> Renee Encarnacion MD Cosigner Signature (if applicable): CC: ~ Signed [facility] Work Phone: 1(348) 306-596510-01-2025 Progress note [facility] Note Date/Time July 23, 2025 5: 12pm [facility] Medical Records Department [address] [place] [address] Progress Note 07/23/25 1212 MR#: [id number] Acct: [id number] Name: ZABRINA HSU Rep #:[id number] : 1955 70 From: Renee Encarnacion MD PCP: SEUN Alvarez Status:ADM IN Location: ICU ICU01-1 Subjective Subjective Patient seen and examined. She says she felt much better today. However this morning she says she threw up her breakfast. She denied any chest pain, shortness of breath or palpitations, dizziness, nausea or vomiting or any other symptoms. Review of systems otherwise negative. She is on 3 L of oxygen this morning. However she has been tachypneic and tachycardic. Objective Data Objective Data Vital Signs: Vital Signs Temp Pulse Resp BP Pulse Ox O2 Del Method O2 Flow Rate 97.3 F L 112 H 29 H 149/76 H 99 Nasal Cannula 3 07/23/25 08:00 07/23/25 10:29 07/23/25 10:29 07/23/25 10:29 07/23/25 10:29 07/23/25 10:07/23/25 10: FiO2 99 07/23/25 07:25 Oxygen Flow Rate (L/min) 3 Oxygen Delivery Method Nasal Cannula Weight: 104 lb 4.458 oz Body Mass Index (BMI) 17.9 Intake & Output: Intake and Output for Last 24 Hours 07/21/25 07/22/25 07/23/25 23:59 23:59 23:59 Intake Total 2303.71 / 2322.46 3219.58 / 3219.58 508.33 / 508.33 Output Total 3050 / 3050 7900 / 7900 1250 / 1250 Balance -746.29 / -727.54 -4680.42 / -4680.42 -741.67 / -741.67 Lab / Micro Data 07/23/25 04:05 07/23/25 04:05 Labs: Laboratory Results - last 24 hr 07/22/25 17:00: POC Glucose 136 H 07/23/25 04:05: WBC 11.3 H, RBC 3.41 L, Hgb 9.9 L, Hct 29.6 L, MCV 86.8, MCH 29.0, MCHC 33.4, RDW Std Deviation 47.5 H, RDW Coeff of Shivam 15.0 H, Plt Count 436, MPV 9.3, Immature Gran % (Auto) 2.000 H, Neut % (Auto) 67.5, Lymph % (Auto)17.3 L, [place] % (Auto) 13.0 H, Eos % (Auto) 0.1, Baso % (Auto) 0.1, Absolute Neuts (auto) 7.6, Absolute Lymphs (auto) 1.95, Nucleated RBC % 0, Sodium 140, Potassium 2.9 L, Chloride 101, Carbon Dioxide 25.7, Anion Gap 13, BUN 23 H, Creatinine 0.68 L, Estim Creat Clear Calc 51.62, Est GFR (MDRD) Non-Af 93, BUN/Creatinine Ratio 33.7 H, Glucose 133 H, Calcium 8.9, Magnesium 2.3 H 07/23/25 07:51: POC Glucose 137 H Micro: Microbiology 07/16/25 04:20 Blood Culture (Wb) - Left Hand Blood Culture - Final No growth in 5 days. 07/16/25 04:05 Blood Culture (Wb) - Right Hand Blood Culture - Final No growth in 5 days. 07/16/25 03:44 Urine, Catheterized Urine Culture - Final Culture exhibits no growth. 07/16/25 03:36 Sputum, Induced/Lukens Gram Stain - Final 07/16/25 03:36 Sputum, Induced/Lukens Respiratory Culture - Final Mixed normal respiratory renu. No Streptococcus pneumoniae, beta-hemolytic Streptococcus or Staphylococcus aureus isolated. 07/16/25 10:30 Nasal Secretion MRSA (PCR) - Final 07/16/25 09:20 Mucosa - Nasopharyngeal Respiratory Panel (PCR) - Final 07/16/25 08:25 Urine Catheter - Madrigal Legionella Antigen - Final 07/16/25 08:25 Urine Catheter - Madrigal Streptococcus pneumoniae Antigen (M - Final 07/16/25 03:44 Mucosa - Nose SARS-CoV-2, Influenza & RSV (PCR) - Final Rhythm Strip Rhythm Strip: Sinus Tach Rate: 114 Physical Exam Const alert, oriented x3 and no apparent distress General Appearance: cooperative HEENT normocephalic, head/scalp atraumatic, moist oral mucous membranes and oropharynxnormal Eyes PERRL, EOMs intact bilaterally and conjunctivae normal Neck supple Lymph Lymphatic: no lymphedema noted Resp Resp Narrative: mildly diminished breath sounds bibasally, no wheezes or crackles. On 3 L of oxygen by nasal canula Cardio regular rhythm, S1 normal heart sound, S2 normal heart sound and no murmurs Cardio Narrative: tachycardic GI normal to inspection, nondistended, normoactive bowel sounds, soft to palpation,non-tender, non-distended and hepatosplenomegaly Extremity normal to inspection, full ROM, normal capillary refill and no clubbing, cyanosis or edema General Extremity: no tenderness to palpation of joints or extremities Skin General Skin Exam: no breakdown Neuro moves all extremities, no focal motor deficits and no sensory deficits noted Sensorium / Orientation: awake and alert Motor Exam: general weakness Psych thought process normal Psych Narrative: patient very tearful Appearance: appropriate Assessment & Plan Assessment/Plan (1) Acute respiratory failure with hypoxia and hypercapnia: (2) Pneumonia: QUALIFIERS: Pneumonia type: due to unspecified organism Laterality: bilateral Lung location: unspecified part of lung Qualified Code(s): J18.9 - Pneumonia, unspecified organism PLAN: Plan #Acute hypoxic respiratory failure * Patient extubated on 07/21/2025. Currently on 3 L of oxygen. * Thought to be due to acute exacerbation of COPD as well as heart failure and possible pneumonia. On empiric IV ceftriaxone and azithromycin. * Urine for strep and Legionella negative. Respiratory panel negative. * passed repeat swallow eval after failing the first one and is now on a modified diet. * On IV Solu-Medrol as well as IV Lasix. * To complete a 7-day course of antibiotics. * #Elevated troponin: * 2D echo showed no regional wall motion abnormalities. * 2D echo showed EF of 55% and inferior hypokinesis. * Thought to be due to demand ischemia from hypertension and respiratory failure. No need for further workup now. #Hypertension * BP still poorly controlled. Was admitted and hypertensive emergency. * Blood pressure was markedly elevated at 257/127 on admission and there were concerns of flash pulmonary edema. * oral meds resumed- on amlodipine 10 mg daily and metoprolol 25 mg twice daily. She has been weaned off of the nicardipine drip. * IV hydralazine as needed. * #CAD s/p stents: On sublingual nitroglycerin. 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 Currently stable. #Hyperlipidemia: On statin #Depression: On venlafaxine #History of glaucoma: On brimonidine and dorzolamide eyedrops DVT prophylaxis: Lovenox Disposition: transfer to PCU Charges/Coding Visit Charges Inpatient E&M: 21203 Subs Hosp L2 07/23/25 1712 <Electronically signed by Renee Encarnacion MD> Renee Encarnacion MD Cosigner Signature (if applicable): CC: ~ Signed [facility] Work Phone: 1(565) 640-500310-01-2025 Progress note Author Eleazar Valle [facility] Note Date/Time July 23, 2025 8: 40am [facility] Medical Records Department [address] [place] [address] Progress Note - Aoc Director Intelligence Officer 07/23/25 0738 MR#: [id number] Acct: [id number] Name: ZABRINA HSU Rep #:[id number] : 1955 70 From: Eleazar Valle DO PCP: SEUN Alvarez Status:ADM IN Location: ICU ICU01-1 Assessment & Plan Assessment/Plan (1) Acute respiratory failure with hypoxia and hypercapnia: PLAN: Plan RECOMMENDATIONS: 1. Supplemental oxygen to maintain saturations at or above 90%. 2. Continue scheduled bronchodilators and steroids. IV Solu-Medrol has been transitioned to prednisone to complete 5 days. 3. Continue home antihypertensive regimen. 4. Additional potassium repletion as ordered. 5. Continue nicotine replacement therapy. 6. Encourage incentive spirometer use and mobilize patient as tolerated. 7. Continue appropriate DVT prophylaxis. 8. The patient is medically stable for transfer out of the intensive care unit. Please call with any additional questions. IMPRESSIONS: 1. Acute respiratory failure with hypoxemia and hypercapnia Most likely multifactorial in etiology. The patient has a known history of COPDand a longstanding tobacco abuse history, but presented to the emergency department profoundly hypertensive with what I suspect is a component of flash pulmonary edema. The patient was ultimately intubated in the emergency department. With supportive care, including antimicrobials, steroids and diuretics, the patient improved clinically and was able to be extubated on July 21. The patient was able to complete a modified barium swallow and her diet was advanced accordingly. Accordingly, her baseline antihypertensives have been resumed. The patient's IV steroids will be transitioned to prednisoneto complete 5 additional days of therapy. Recommend continuing to wean supplemental oxygen as tolerated. The patient does have a baseline oxygen requirement of 2 L/min. Continue nicotine replacement therapy. The patient is otherwise medically stable for transfer out of the intensive care unit. 2. History of coronary artery disease status post PCI/history of hypertrophic cardiomyopathy/valvular heart disease Continue diuretics as tolerated by hemodynamics and renal function. 3. Chronic tobacco dependency/depression/glaucoma/hyperlipidemia Complicates care, management, recovery and prognosis. Continue supportive measures as noted above. PT/OT to work with the patient. This note was generated with [employer] dictation software. It may contain incorrectwords, spelling, and punctuation that were not noted in checking the note beforesigning. Subjective Subjective The patient was seen and examined at the bedside this morning. Events from the last 24 hours have been reviewed. The patient is currently afebrile, hemodynamically stable and maintaining appropriate oxygen saturations on 4 L/minvia nasal cannula. The patient passed her swallow evaluation yesterday and her diet was advanced accordingly. Objective Data Objective Data The patient's most recent lab work, culture data and imaging studies have all been personally reviewed. Surface echocardiogram demonstrated mild concentric LVH with an ejection fraction of 55% and stage I diastolic dysfunction. Sputum,blood and urine cultures have not demonstrated any growth to date. Vital Signs: Vital Signs Temp Pulse Resp BP Pulse Ox O2 Del Method O2 Flow Rate 98.8 F 97 20 H 169/102 H 100 Nasal Cannula 4 07/23/25 04:00 07/23/25 07:12 07/23/25 07:12 07/23/25 07:00 07/23/25 07:00 07/23/25 07:25 07/23/25 07:25 FiO2 99 07/23/25 07:25 Oxygen Flow Rate (L/min) 4 Oxygen Delivery Method Nasal Cannula Weight: 104 lb 4.458 oz Body Mass Index (BMI) 17.9 Intake & Output: Intake and Output for Last 24 Hours 07/21/25 07/22/25 07/23/25 23:59 23:59 23:59 Intake Total 2303.71 / 2322.46 3219.58 / 3219.58 148.33 / 148.33 Output Total 3050 / 3050 7900 / 7900 1250 / 1250 Balance -746.29 / -727.54 -4680.42 / -4680.42 -1101.67 / -1101.67 Lab / Micro Data Attestation: I reviewed the patient's lab results. 07/23/25 04:05 07/23/25 04:05 Labs: Laboratory Results - last 24 hr 07/22/25 11:03: POC Glucose 233 H 07/22/25 17:00: POC Glucose 136 H 07/23/25 04:05: WBC 11.3 H, RBC 3.41 L, Hgb 9.9 L, Hct 29.6 L, MCV 86.8, MCH 29.0, MCHC 33.4, RDW Std Deviation 47.5 H, RDW Coeff of Shivam 15.0 H, Plt Count 436, MPV 9.3, Immature Gran % (Auto) 2.000 H, Neut % (Auto) 67.5, Lymph % (Auto)17.3 L, [place] % (Auto) 13.0 H, Eos % (Auto) 0.1, Baso % (Auto) 0.1, Absolute Neuts (auto) 7.6, Absolute Lymphs (auto) 1.95, Nucleated RBC % 0, Sodium 140, Potassium 2.9 L, Chloride 101, Carbon Dioxide 25.7, Anion Gap 13, BUN 23 H, Creatinine 0.68 L, Estim Creat Clear Calc 51.62, Est GFR (MDRD) Non-Af 93, BUN/Creatinine Ratio 33.7 H, Glucose 133 H, Calcium 8.9, Magnesium 2.3 H Micro: Microbiology 07/16/25 04:20 Blood Culture (Wb) - Left Hand Blood Culture - Final No growth in 5 days. 07/16/25 04:05 Blood Culture (Wb) - Right Hand Blood Culture - Final No growth in 5 days. 07/16/25 03:44 Urine, Catheterized Urine Culture - Final Culture exhibits no growth. 07/16/25 03:36 Sputum, Induced/Lukens Gram Stain - Final 07/16/25 03:36 Sputum, Induced/Lukens Respiratory Culture - Final Mixed normal respiratory renu. No Streptococcus pneumoniae, beta-hemolytic Streptococcus or Staphylococcus aureus isolated. 07/16/25 10:30 Nasal Secretion MRSA (PCR) - Final 07/16/25 09:20 Mucosa - Nasopharyngeal Respiratory Panel (PCR) - Final 07/16/25 08:25 Urine Catheter - Madrigal Legionella Antigen - Final 07/16/25 08:25 Urine Catheter - Madrigal Streptococcus pneumoniae Antigen (M - Final 07/16/25 03:44 Mucosa - Nose SARS-CoV-2, Influenza & RSV (PCR) - Final ABG Data ABG results: ABG 07/16/25 09:42 Specimen Type ART Sample Site L Radial pH 7.49 H Bicarbonate Actual 29.1 H Total CO2 30 Base Excess 6 H O2 Saturation 98 O2 % 50.0 ABG pCO2 38.6 ABG pO2 96 Judith Test N/A Respiration Rate 20 O2 Delivery Device Adult Vent Vent Mode AC Tidal Volume 400.0 POC PEEP 5 Radiography Diagnostic Testing: Radiology Impression Echocardiogram 07/16/25 06:31 Interpretation Summary Mild concentric left ventricular hypertrophy. Inferior hypokinesis. Estimated LVEF 55%. Stage I diastolic dysfunction. Moderate posterior mitral valve annular calcification. Calcified chord. Mild mitral valve regurgitation. Mild tricuspid valve insufficiency. Mildly calcified aortic valve leaflets. Aortic valve sclerosis without stenosis. Mild (1+) pulmonic valve insufficiency. Ordering Physician: Jack Zuniga Performed By: Jake Miguel [facility] Chest X-Ray 07/16/25 09:05 IMPRESSION: Tubes and lines in position. There interstitial infiltrates in the perihilar region bilaterally and in the left upper lung. Reading Location: [facility] Chest X-Ray 07/17/25 05:10 IMPRESSION: Tubes and lines in position. There are perihilar infiltrates in the right and left, improved. Reading Location: [facility] Rhythm Strip Rhythm Strip: Sinus Tach Rate: 114 Physical Exam Const alert, oriented x3 and no apparent distress General Appearance: cooperative, ill appearing Positive for chronically and frail HEENT normocephalic and head/scalp atraumatic Eyes EOMs intact bilaterally, conjunctivae normal and no scleral icterus Neck supple General: trachea midline Chest Chest Narrative: Increased AP diameter. Resp no use of accessory muscles Auscultation: diminished lung sounds; Negative for rales, rhonchi or wheezes Cardio regular rate and regular rhythm GI normal to inspection, nondistended, normoactive bowel sounds Extremity no clubbing, cyanosis or edema Skin no rashes or lesions noted Neuro CN's II-XII intact bilaterally, moves all extremities and no focal motor deficits Psych cooperative and affect normal Charges/Coding Visit Charges Inpatient E&M: 94476 Subs Hosp L2 07/23/25 0840 <Electronically signed by lEeazar Valle DO> Cosigner Signature (if applicable): CC: ~ Signed [facility] Work Phone: 1(717) 683-581709-30-2025 Progress note Author Renee Encarnacion [facility] Note Date/Time July 22, 2025 6:37pm [facility] Medical Records Department [address] [place] [address] Progress Note 07/22/25 1112 MR#: [id number] Acct: [id number] Name: ZABRINA HSU Rep #:[id number] : 1955 70 From: Renee Encarnacion MD PCP: SEUN Alvarez Status:ADM IN Location: ICU ICU01-1 Subjective Subjective Patient seen and examined. She feels better today and had no active complaints. She is on 4L of oxygen. She is tachycardic and tachypneic. She denied any fever,chills, cough, chest pain, palpitations, dizziness, nausea, vomiting or any other symptoms. Review of systems is otherwise negative. Objective Data Objective Data Vital Signs: Vital Signs Temp Pulse Resp BP Pulse Ox O2 Del Method O2 Flow Rate 98.6 F 115 H 21 H 126/73 H 95 Nasal Cannula 4 07/22/25 09:30 07/22/25 09:30 07/22/25 09:30 07/22/25 09:30 07/22/25 09:30 07/22/25 09:30 07/22/25 09:30 FiO2 91 07/22/25 06:46 Oxygen Flow Rate (L/min) 4 Oxygen Delivery Method Nasal Cannula Weight: 111 lb 12.39 oz Body Mass Index (BMI) 19.1 Intake & Output: Intake and Output for Last 24 Hours 07/20/25 07/21/25 07/22/25 23:59 23:59 23:59 Intake Total 2358.52 / 2467.62 2303.71 / 2322.46 1973.75 / 1973.75 Output Total 2475 / 2475 3050 / 3050 3150 / 3150 Balance -116.48 / -7.38 -746.29 / -727.54 -1176.25 / -1176.25 Lab / Micro Data 07/22/25 04:45 07/22/25 04:45 Labs: Laboratory Results - last 24 hr 07/21/25 11:55: POC Glucose 126 H 07/21/25 17:06: POC Glucose 49 L 07/21/25 17:33: POC Glucose 202 H 07/21/25 18:24: POC Glucose 52 L 07/21/25 23:19: POC Glucose 82 07/22/25 04:45: WBC 11.8 H, RBC 3.71 L, Hgb 10.7 L, Hct 32.9 L, MCV 88.7, MCH 28.8, MCHC 32.5, RDW Std Deviation 49.1 H, RDW Coeff of Shivam 15.3 H, Plt Count 452 H, MPV 9.5, Immature Gran % (Auto) 2.500 H, Neut % (Auto) 84.7 H, Lymph % (Auto) 8.4 L, [place] % (Auto) 4.1, Eos % (Auto) 0.0, Baso % (Auto) 0.3, Absolute Neuts (auto) 10.0 H, Absolute Lymphs (auto) 1.00, Nucleated RBC % 0, Sodium 142,Potassium 3.2 L, Chloride 106, Carbon Dioxide 22.3, Anion Gap 14, BUN 30 H, Creatinine 0.76, Estim Creat Clear Calc 52.85, Est GFR (MDRD) Non-Af 84, BUN/Creatinine Ratio 39.5 H, Glucose 160 H, Calcium 8.3 07/22/25 05:43: POC Glucose 169 H 07/22/25 06:40: POC Glucose 174 H Micro: Microbiology 07/16/25 04:20 Blood Culture (Wb) - Left Hand Blood Culture - Final No growth in 5 days. 07/16/25 04:05 Blood Culture (Wb) - Right Hand Blood Culture - Final No growth in 5 days. 07/16/25 03:44 Urine, Catheterized Urine Culture - Final Culture exhibits no growth. 07/16/25 03:36 Sputum, Induced/Lukens Gram Stain - Final 07/16/25 03:36 Sputum, Induced/Lukens Respiratory Culture - Final Mixed normal respiratory renu. No Streptococcus pneumoniae, beta-hemolytic Streptococcus or Staphylococcus aureus isolated. 07/16/25 10:30 Nasal Secretion MRSA (PCR) - Final 07/16/25 09:20 Mucosa - Nasopharyngeal Respiratory Panel (PCR) - Final 07/16/25 08:25 Urine Catheter - Madrigal Legionella Antigen - Final 07/16/25 08:25 Urine Catheter - Madrigal Streptococcus pneumoniae Antigen (M - Final 07/16/25 03:44 Mucosa - Nose SARS-CoV-2, Influenza & RSV (PCR) - Final Physical Exam Const alert and no apparent distress HEENT normocephalic, head/scalp atraumatic, moist oral mucous membranes and oropharynxnormal Eyes PERRL, EOMs intact bilaterally and conjunctivae normal Neck no lymphadenopathy and supple Lymph Lymphatic: no lymphedema noted Resp Resp Narrative: mildly diminished breath sounds bibasally, no wheezes or crackles. On 4 L of oxygen by nasal canula Cardio regular rhythm, S1 normal heart sound, S2 normal heart sound and no murmurs Cardio Narrative: tachycardic GI normal to inspection, nondistended, normoactive bowel sounds, soft to palpation,non-tender and non-distended Extremity normal to inspection, full ROM, normal capillary refill and no clubbing, cyanosis or edema General Extremity: no tenderness to palpation of joints or extremities Skin General Skin Exam: no breakdown Neuro moves all extremities, no focal motor deficits and no sensory deficits noted Sensorium / Orientation: awake and alert Motor Exam: general weakness Psych thought process normal Appearance: appropriate Assessment & Plan Assessment/Plan (1) Acute respiratory failure with hypoxia and hypercapnia: (2) Pneumonia: QUALIFIERS: Pneumonia type: due to unspecified organism Laterality: bilateral Lung location: unspecified part of lung Qualified Code(s): J18.9 - Pneumonia, unspecified organism PLAN: Plan #Acute hypoxic respiratory failure * Patient extubated on 07/21/2025. Currently on 2 L of oxygen. * Thought to be due to acute exacerbation of COPD as well as heart failure and possible pneumonia. On empiric IV ceftriaxone and azithromycin. * Urine for strep and Legionella negative. Respiratory panel negative. * Failed swallow eval yesterday. Titrate oxygen to maintain saturation above 90%. * On IV Solu-Medrol as well as IV Lasix. * To complete a 7-day course of antibiotics. * To have repeat swallow eval today. #Elevated troponin: * 2D echo showed no regional wall motion abnormalities. * 2D echo showed EF of 55% and inferior hypokinesis. * Thought to be due to demand ischemia from hypertension and respiratory failure. No need for further workup now. #Hypertensive emergency: * Blood pressure was markedly elevated at 257/127 on admission and there were concerns of flash pulmonary edema. * IV hydralazine as needed. Resume oral meds once patient passes swallow evaluation. * she had to be placed on nicardipine drip yesterday as BP was markedly elevated. To titrate and wean off nicardipine today as tolerated and after repeat swallow eval, will check to see if she can resume her oral meds. #CAD s/p stents: On sublingual nitroglycerin. 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 Currently stable. #Hyperlipidemia: On statin #Depression: On venlafaxine #History of glaucoma: On brimonidine and dorzolamide eyedrops DVT prophylaxis: Lovenox Charges/Coding Visit Charges Inpatient E&M: 40291 Subs Hosp L2 07/22/25 3420 <Electronically signed by Renee Encarnacion MD> Renee Encarnacion MD Cosigner Signature (if applicable): CC: ~ Signed ADDENDUM by Dr. Renee Encarnacion MD on 07/22/25 at 1837 Addendum Patient not able to take in orally so patient started on p.o. metoprolol 25 mg twice daily. Heart rate in the 130s so patient given a bolus of Cardizem this evening and started on the p.o. metoprolol. IV Lopressor as needed also ordered. 07/22/257 <Electronically signed by Renee larios MD> Date _ Renee Encarnacion MD Cosigner Signature (if applicable): Date cc: ~* Signed [facility] Work Phone: 1(437) 787-258909-30-2025 Consult note Author [facility] Note Date/Time July 22, 2025 1:59pm [facility] Medical Records Department [address] [place] [id number] Consultation - Palliative Care 07/22/25 1215 MR#: [id number] Acct: [id number] Name: ZABRINA HSU Rep #:[id number] : 1955 70 From: Apple KOHLI PCP: SEUN Alvarez Status:ADM IN Location: ICU ICU01-1 [facility] Medical History 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 Non-rheumatic mitral regurgitation Depression Anxiety Pulmonary hypertension Essential hypertension Pure hypercholesterolemia Atherosclerotic heart disease of [place] coronary artery without angina pectoris Home Medications ?Medication ?Instructions ?Recorded ?Last Taken ?Type aspirin 81 mg tablet,delayed 81 mg PO DAILY heart 06/23 04/10 Unknown History release (Adult Low Dose Aspirin) atorvastatin 40 mg tablet 40 mg PO QHS cholestrol 06/23 04/10 Unknown History nitroglycerin 0.4 mg sublingual 0.4 mg sublingual Q5-1 5M PRN chest 07/08/19 Unknown History tablet pain oxybutynin chloride 10 mg 10 mg PO DAILY overactive bl add 07/08/19 Unknown History tablet,extended release 24 hr albuterol sulfate 90 mcg/actuation 2 puff inhalation Q 4H PRN 12/23/20 Unknown Rx aerosol inhaler (Ventolin HFA) shortness of breath or wheezing #8.5 grams brimonidine 0.2 % eye drops ml ophthalmic (eye) eyes 0 06/16/21 Unknown History dorzolamide 2 % eye drops 1 drp ophthalmic (eye) TID e yes 06/16/21 Unknown History lisinopril 20 mg tablet 20 mg PO DAILY #90 tabs 05/24 03/12 Unknown Rx clopidogrel 75 mg tablet 75 mg PO DAILY heart 5 Unknown History furosemide 40 mg tablet 40 mg PO DAILY heart 5 Unknown History spironolactone 25 mg tablet 25 mg PO DAILY diuresis Unknown History OXYGEN - Supplemental ([facility] COPD 07/18/25 Unknown Histo ry INFORMATIONAL USE ONLY) Allergy/AdvReac Type Severity Reaction Status Date / Time No Known Allergies Allergy Unverified 06/16/21 14:41 Family History Mother Diabetes Surgical History History of coronary artery stent placement (01/02/17) History of hysterectomy Social History Smoking Status: Current every day smoker tobacco type: cigarettes Tobacco: How many years used: 46 second hand exposure: Yes alcohol intake: never substance use type: does not use caffeine: Yes Type: coffee ROS Constitutional Constitutional: Reports systems reviewed and no addt'l complaints, except as documented and as per HPI Eyes Eyes: Reports systems reviewed and no addt'l complaints, except as documented ENT HEENT: Reports systems reviewed and no addt'l complaints, except as documented Cardiovascular Cardiovascular: Reports dyspnea, dyspnea at rest, dyspnea on exertion, easily tiring during activity and fatigue Respiratory/Chest Respiratory/Chest: Reports dyspnea, dyspnea on exertion, shortness of breath at rest and shortness of breath with exertion Gastrointestinal Gastrointestinal: Reports systems reviewed and no addt'l complaints, except as documented Genitourinary Genitourinary: Reports systems reviewed and no addt'l complaints, except as documented Musculoskeletal Musculoskeletal: Reports back pain Integumentary Integumentary: Reports systems reviewed and no addt'l complaints, except as documented Neurologic Neurologic: Reports systems reviewed and no addt'l complaints, except as documented Psychiatric Psychiatric: Reports anxiety Endocrine Endocrinology: Reports systems reviewed and no addt'l complaints, except as documented Hematologic/Lymphatic Hematologic/Lymphatic: Reports systems reviewed and no addt'l complaints, exceptas documented Allergic/Immunologic Allergic/Immunologic: Reports systems reviewed and no addt'l complaints, except as documented Physical Exam Const alert and oriented x3 General Appearance: cooperative HEENT normocephalic Mouth: oral and palatal mucosa normal Resp Effort and Inspection: tachypneic Auscultation: diminished lung sounds Cardio regular rhythm, S1 normal heart sound and S2 normal heart sound Cardio Narrative: Patient was tachycardic during the entire assessment Rate: tachycardic GI normal to inspection, nondistended, normoactive bowel sounds, non-tender and non-distended GI Narrative: no guarding with palpation Skin no rashes or lesions noted and no jaundice Neuro oriented x3, CN's II-XII intact bilaterally and no focal motor deficits Sensorium / Orientation: alert Speech: speech normal Psych affect normal Psych Narrative: appropriate, makes good eye contact. Patient has had some documented anxiety issues during admission. Charges/Coding Palliative Care Palliative Care: 50412 New Pt Consult 80+ min HPI Current admission Current Code Status: Patient is currently a full code but considering DNR CC?a with intubation Associated Diagnosis: Acute on chronic respiratory failure Consult Data Date of Consult: 07/22/25 Location of consult: ICU Reason for referral: Goals of care conversations and CODE STATUS Referral source: Dr. Valle Palliative care diagnosis (Summary list): Acute on chronic respiratory failure Palliative care services/treatment (Accepted, as consult): Accepted Case discussed with referring provider: Goals of care. HPI Narrative HPI Narrative: PAIN ASSESSMENT Location: [ denies ] Quality: [ ] Severity/Quantity: [ ] Timing/Frequency:[ ] Context: [ ] Factors that make it better/worse: [ ] Associated signs &symptoms: [ ] ZABRINA HSU, is a 70 F who presented to the emergency department on 07/16/2025 with respiratory failure. She was subsequently intubated. She was extubated yesterday and is currently on nasal cannula at 4 L. She is on home O2at 3 L. I did review her labs and radiological studies as well as documentationsince admission and prior admissions. She did have an echocardiogram on 07/16/2025 showing mild concentric left ventricular hypertrophy. Inferior hypokinesis. Estimated EF of 55%. Stage I diastolic dysfunction. Moderate posterior mitral valve annular calcification. Calcified cord. Mild mitral valve regurgitation. Mild tricuspid valve insufficiency. Mild calcific aortic valve leaflets. Aortic valve sclerosis without stenosis. Mild 1+ pulmonic valve insufficiency. Following extubation she did fail her initial bedside swallow study. She then had a subsequent swallow study with speech-language pathology which she also failed. Today she did pass swallow study and has introduced heart healthy diet. I then met with the patient, Marcela, at bedside. Introduced myself and the concept of palliative care in which she voluntarily excepted our services. I discussed her medical history and she had nothing more to add. When I asked if she still smokes she said not anymore. I asked her when she quit and she stated that she quit the day she came in to the hospital. I did ask her if she was interested in smoking cessation and she stated that she was and she does notplan to go back to smoking again. I had an extensive discussion with her about CODE STATUS and the benefits versus burdens of CPR. She states that she would like to talk to her family about CPR but that she would want to be intubated again if needed. Her family did come into the room during our discussion in which I also discussed with them the benefits versus burdens of CPR and requested that they speak as a family to come up with a goal of care regarding CODE STATUS. The patient's children are very realistic as well as the patient'shusband and are leaning towards no CPR but they would like to speak to Marcela before making that decision. I did state that there was no hurry in making the decision and that we can discuss again tomorrow. I did note Kady to be significantly weak while trying to eat her lunch. Will await PT/OT recommendations but patient states that she is open to SNF rehab if needed. Herultimate goal is to return home. We then discussed the benefits of outpatient palliative care services. She states that she does want to continue aggressive medical management of her comorbidities but that she would be interested in palliative care outpatient services. I then discussed this with the family and they would all feel that she would benefit from the services. I did offer her choice for palliative care services in which [facility]. I also updated the family Zabrina's goals going forward as well as answered questions about her echocardiogram. Marcela did state that she is not interested in eating the food that we had here and states that it does not tastevery good. She may benefit from a dietitian consult, as well. All questions the patient and family had were answered. Palliative care will continue to follow for goals of care conversations as clinical picture evolves. I did update social services analyst about patient and family's decision about outpatient palliative care services. We did discuss the patient's anxiety and I did teach her some grounding techniques including breath work and guided imagery. I did explain to her the importance of deep breathing exercises during the early stages of an anxiety attack. Hospitalist: ZABRINA HSU, is a 70 F with a past medical history of essential hypertension; on lisinopril, hyperlipidemia; on atorvastatin, chronic tobacco abuse x ~46 years, CAD; s/p stents x 3 RCA + LAD x 1 (2017) on BASA plusprn SL NTG, history of apical variant hypertrophic cardiomyopathy per MRI (2017), history of nonrheumatic mitral regurgitation, history of myocardial fibrosis, history of inducible AVNRT, tobacco abuse; with subsequent COPD, pulmonary hypertension, OAB; on oxybutynin, depression; on venlafaxine, glaucoma; on brimonidine daily and dorzolamide eyes drops TID, history of hysterectomy and OA who presents to [facility] ER complaining ofSOB. Ms. Hsu was noted to be in respiratory distress upon arrival to the ER causing her to be immediately started ion BiPAP prior to being intubated so information was gathered from chart, medical staff and computer. In the ER she was noted to have a highly elevated blood pressure of 257/127 mmHg present on admission consistent with Hypertensive Emergency complicated by an elevated NT pro-BNP II of 7,963 pg/mL present on admission due to AE of CHF compounded by clinical evidence of AE COPD with Acute Hypoxic and Hypercapnic Respiratory Failure evidenced by ABG pH 7.06/ PCO2 75.1 mmHg/ PO2 73 mmHg/ HCO3 21.2 mmHg @ 86% on AC vent 400 with 5 PEEP on 50% FiO2 along with Leukocytosis of 13.1K withLeft-shift of 2.9% and Lactic Acidosis of 3.2 mmol/L concerning for Sepsis in addition to Transaminitis; AST 158 U/L, ALT 118 U/L and Alkaline Phosphatase 163U/L plus Hyperglycemia of 368 mg/dL present on admission. She was then admittedto the ICU for ongoing care for a stay that is expected to extend beyond 2 midnights. Palliative Assessment Advanced Directive - Current Admission Advance Directive: Advance Directive ON ADMISSION - REFERENCE 3 Do you have a Healthcare No 07/16/25 07:58 Living Will? Do you have a Healthcare Power No 07/16/25 07:58 of [employer] Applicator? Do You Want Additional Declined 07/16/25 07:58 Information on Advanced Directives or Healthcare Proxy/DPOA comments: Patient states that they do have legal paperworkand that her , her would be her decision-maker if she is unable to make decisions for herself. Psychosocial/Spiritual Information Living situation/Marital status: Spoke spoke with and 16-year-old grandson. Geographic location: [place] Supports: Family Evangelical/Grazyna or spiritual preference: Sikh Prior functional status: Patient was unable to do her own ADLs related to disease processes and shortnessof breath Assistive devices at home: Oxygen and walker Information about the patient as a person: Patient states that she enjoys being in her garden and her 4 cats and 2 dogs. None Symptoms Palliative performance scale: 50% Palliative prognostic index: 8.5 (if the PPI is greater than 6.0, survival is estimated to be less than 3 weeks.) Dyspnea symptoms: Severe Nausea symptoms: None Vomiting symptoms: None Depression symptoms: Mild Anorexia symptoms: Moderate Fatigue symptoms: Moderate Weakness symptoms: Moderate Confusion symptoms: None Objective Data Objective Data Vital Signs: Vital Signs Temp Pulse Resp BP Pulse Ox O2 Del Method O2 Flow Rate 98.6 F 116 H 25 H 147/68 H 98 Nasal Cannula 4 07/22/25 09:07/22/25 11:00 07/22/25 11:00 07/22/25 11:00 07/22/25 11:00 07/22/25 11:07/22/25 11:00 FiO2 91 07/22/25 06:46 Oxygen Flow Rate (L/min) 4 Oxygen Delivery Method Nasal Cannula Weight: 111 lb 12.39 oz Body Mass Index (BMI) 19.1 Intake & Output: Intake and Output for Last 24 Hours 07/20/25 07/21/25 07/22/25 23:59 23:59 23:59 Intake Total 2358.52 / 2467.62 2303.71 / 2322.46 2727.08 / 2727.08 Output Total 2475 / 2475 3050 / 3050 5350 / 5350 Balance -116.48 / -7.38 -746.29 / -727.54 -2622.92 / -2622.92 Lab / Micro Data Attestation: I reviewed the patient's lab results. 07/22/25 04:45 07/22/25 04:45 Labs: Laboratory Results - last 24 hr 07/21/25 11:55: POC Glucose 126 H 07/21/25 17:06: POC Glucose 49 L 07/21/25 17:33: POC Glucose 202 H 07/21/25 18:24: POC Glucose 52 L 07/21/25 23:19: POC Glucose 82 07/22/25 04:45: WBC 11.8 H, RBC 3.71 L, Hgb 10.7 L, Hct 32.9 L, MCV 88.7, MCH 28.8, MCHC 32.5, RDW Std Deviation 49.1 H, RDW Coeff of Shivam 15.3 H, Plt Count 452 H, MPV 9.5, Immature Gran % (Auto) 2.500 H, Neut % (Auto) 84.7 H, Lymph % (Auto) 8.4 L, [place] % (Auto) 4.1, Eos % (Auto) 0.0, Baso % (Auto) 0.3, Absolute Neuts (auto) 10.0 H, Absolute Lymphs (auto) 1.00, Nucleated RBC % 0, Sodium 142,Potassium 3.2 L, Chloride 106, Carbon Dioxide 22.3, Anion Gap 14, BUN 30 H, Creatinine 0.76, Estim Creat Clear Calc 52.85, Est GFR (MDRD) Non-Af 84, BUN/Creatinine Ratio 39.5 H, Glucose 160 H, Calcium 8.3 07/22/25 05:43: POC Glucose 169 H 07/22/25 06:40: POC Glucose 174 H 07/22/25 11:03: POC Glucose 233 H Micro: Microbiology 07/16/25 04:20 Blood Culture (Wb) - Left Hand Blood Culture - Final No growth in 5 days. 07/16/25 04:05 Blood Culture (Wb) - Right Hand Blood Culture - Final No growth in 5 days. 07/16/25 03:44 Urine, Catheterized Urine Culture - Final Culture exhibits no growth. 07/16/25 03:36 Sputum, Induced/Lukens Gram Stain - Final 07/16/25 03:36 Sputum, Induced/Lukens Respiratory Culture - Final Mixed normal respiratory renu. No Streptococcus pneumoniae, beta-hemolytic Streptococcus or Staphylococcus aureus isolated. 07/16/25 10:30 Nasal Secretion MRSA (PCR) - Final 07/16/25 09:20 Mucosa - Nasopharyngeal Respiratory Panel (PCR) - Final 07/16/25 08:25 Urine Catheter - Madrigal Legionella Antigen - Final 07/16/25 08:25 Urine Catheter - Madrigal Streptococcus pneumoniae Antigen (M - Final 07/16/25 03:44 Mucosa - Nose SARS-CoV-2, Influenza & RSV (PCR) - Final Rhythm Strip Rhythm Strip: Sinus Tach Rate: 114 Impressions & Recommendations Patient & Family Issues discussed with the patient and family: Goals of care going forward and CODE STATUS Patient goal: Patient is open to going to SNF for rehab. Considering changing CODE STATUS but for now continues to be a full code. Requesting palliative careoutpatient Family goal: Family wants to support their mother. Patient's family likes the idea of palliative care outpatient and they are going to talk to the mother about CODE STATUS. Ethical & Legal Ethical and legal: None Impressions Impressions: Patient wants to continue aggressive medical management although she would be a hospice candidate if she so chooses. She has elected palliative care outpatient. Recommentation Palliative recommendations: Outpatient palliative care services. Encouter Achieved as a result of this Palliative Care Encounter: [[id number], [phone] ] minutes were spent in total for this visit which consisted, primarily of counseling and education dealing with the complex and emotionally intense issues of symptom management and palliative care in the setting of serious and potentially life-threatening illness. Review of documentation, labs and radiological studies. ?Patient/family had the opportunity to ask questions Plan (1) Acute respiratory failure with hypoxia and hypercapnia: PLAN: Medical management per primary team (2) Pneumonia: QUALIFIERS: Pneumonia type: due to unspecified organism Laterality: bilateral Lung location: unspecified part of lung Qualified Code(s): J18.9 - Pneumonia, unspecified organism PLAN: Medical management per primary team (3) Elevated troponin: PLAN: Medical management per primary team (4) Transaminitis: PLAN: Medical management per primary team (5) CHF exacerbation: QUALIFIERS: Heart failure type: unspecified Qualified Code(s): I50.9 - Heart failure, unspecified PLAN: Medical management per primary team (6) COPD exacerbation: PLAN: Medical management per primary team (7) Counseling regarding goals of care: PLAN: *Extensive discussion about the benefits versus burdens of CPR. *Discussion about smoking cessation *Patient wants to continue aggressive medical management (8) Palliative care encounter: PLAN: *Referral to palliative care outpatient services with pathways *Palliative care will continue to follow for goals of care conversations as clinical picture evolves. 07/22/25 2796 <Electronically signed by Apple KOHLI> Cosigner Signature (if applicable): CC: SEUN Ozuna~ Signed [facility] Work Phone: 1(377) 815-240909-30-2025 Procedure [facility] 07-22-2025 Procedure [facility]09-30-2025 Progress note Author Eleazar Valle [facility] Note Date/Time July 22, 2025 8:48am [facility] Medical Records Department [address] [place] [address] Progress Note - Aoc Director Intelligence Officer 07/22/25 0843 MR#: [id number] Acct: [id number] Name: ZABRINA HSU Rep #:[id number] : 1955 70 From: Eleazar Valle DO PCP: SEUN Alvarez Status:ADM IN Location: ICU ICU01-1 Assessment & Plan Assessment/Plan (1) Acute respiratory failure with hypoxia and hypercapnia: PLAN: Plan RECOMMENDATIONS: 1. Supplemental oxygen to maintain saturations at or above 90%. 2. Antibiotics to be completed today. 3. Continue scheduled bronchodilators and steroids. 4. Modified barium swallow with possible dietary advancement. 5. Resume antihypertensive regimen once the patient is able to tolerate p.o. intake. 6. Potassium repletion as ordered. 7. Initiate nicotine replacement therapy. 8. Continue ongoing diuresis as tolerated by hemodynamics and renal function. 9. Continue appropriate DVT prophylaxis. Encourage incentive spirometer use and mobilize patient as tolerated. IMPRESSIONS: 1. Acute respiratory failure with hypoxemia and hypercapnia Most likely multifactorial in etiology. The patient has a known history of COPDand a longstanding tobacco abuse history, but presented to the emergency department profoundly hypertensive with what I suspect is a component of flash pulmonary edema. The patient was ultimately intubated in the emergency department. With supportive care, including antimicrobials, steroids and diuretics, the patient improved clinically and was able to be extubated on July 21. We are awaiting modified barium swallow prior to advancement of diet. The patient's blood pressure remains uncontrolled. Therefore, she will remain on nicardipine until her diet is able to be advanced and antihypertensiveregimen restarted. Given the patient's longstanding tobacco abuse history, willinitiate nicotine replacement therapy today. Continue BiPAP therapy nightly andas needed throughout the day. Continue to wean supplemental oxygen as tolerated. Encourage incentive spirometer use and mobilize patient as tolerated. In light of the patient suspected underlying advanced stage COPD, coupled with her anxiety and air hunger, will obtain palliative care consultation to assist with symptom management. 2. History of coronary artery disease status post PCI/history of hypertrophic cardiomyopathy/valvular heart disease Continue diuretics as tolerated by hemodynamics and renal function. 3. Chronic tobacco dependency/depression/glaucoma/hyperlipidemia Complicates care, management, recovery and prognosis. Continue supportive measures as noted above. PT/OT to work with the patient. Tentative plans for modified barium swallow today prior to advancement of diet. This note was generated with [employer] dictation software. It may contain incorrectwords, spelling, and punctuation that were not noted in checking the note beforesigning. Subjective Subjective The patient was seen and examined at the bedside this morning. Events from the last 24 hours have been reviewed. The patient is currently afebrile, hemodynamically stable and maintaining appropriate oxygen saturations on 4 L/minvia nasal cannula. The patient was tolerant of BiPAP therapy for a portion of the night. She did become hypertensive last evening and was ultimately placed on nicardipine, pending further speech therapy evaluation today and possible dietary advancement. She did report that she typically smokes 0.5 packs of cigarettes per day. Potassium is low this morning at 3.2. Creatinine remains within normal limits. Objective Data Objective Data The patient's most recent lab work, culture data and imaging studies have all been personally reviewed. Surface echocardiogram demonstrated mild concentric LVH with an ejection fraction of 55% and stage I diastolic dysfunction. Sputum,blood and urine cultures have not demonstrated any growth to date. Vital Signs: Vital Signs Temp Pulse Resp BP Pulse Ox O2 Del Method O2 Flow Rate 98.7 F 105 H 22 H 161/68 H 95 Nasal Cannula 4 07/22/25 04:00 07/22/25 07:00 07/22/25 07:00 07/22/25 07:00 07/22/25 07:00 07/22/25 07:00 07/22/25 07:00 FiO2 91 07/22/25 06:46 Oxygen Flow Rate (L/min) 4 Oxygen Delivery Method Nasal Cannula Weight: 111 lb 12.39 oz Body Mass Index (BMI) 19.1 Intake & Output: Intake and Output for Last 24 Hours 07/20/25 07/21/25 07/22/25 23:59 23:59 23:59 Intake Total 2358.52 / 2467.62 2303.71 / 2322.46 1567.50 / 1567.50 Output Total 2475 / 2475 3050 / 3050 950 / 950 Balance -116.48 / -7.38 -746.29 / -727.54 617.50 / 617.50 Lab / Micro Data Attestation: I reviewed the patient's lab results. 07/22/25 04:45 07/22/25 04:45 Labs: Laboratory Results - last 24 hr 07/21/25 11:55: POC Glucose 126 H 07/21/25 17:06: POC Glucose 49 L 07/21/25 17:33: POC Glucose 202 H 07/21/25 18:24: POC Glucose 52 L 07/21/25 23:19: POC Glucose 82 07/22/25 04:45: WBC 11.8 H, RBC 3.71 L, Hgb 10.7 L, Hct 32.9 L, MCV 88.7, MCH 28.8, MCHC 32.5, RDW Std Deviation 49.1 H, RDW Coeff of Shivam 15.3 H, Plt Count 452 H, MPV 9.5, Immature Gran % (Auto) 2.500 H, Neut % (Auto) 84.7 H, Lymph % (Auto) 8.4 L, [place] % (Auto) 4.1, Eos % (Auto) 0.0, Baso % (Auto) 0.3, Absolute Neuts (auto) 10.0 H, Absolute Lymphs (auto) 1.00, Nucleated RBC % 0, Sodium 142,Potassium 3.2 L, Chloride 106, Carbon Dioxide 22.3, Anion Gap 14, BUN 30 H, Creatinine 0.76, Estim Creat Clear Calc 52.85, Est GFR (MDRD) Non-Af 84, BUN/Creatinine Ratio 39.5 H, Glucose 160 H, Calcium 8.3 07/22/25 05:43: POC Glucose 169 H 07/22/25 06:40: POC Glucose 174 H Micro: Microbiology 07/16/25 04:20 Blood Culture (Wb) - Left Hand Blood Culture - Final No growth in 5 days. 07/16/25 04:05 Blood Culture (Wb) - Right Hand Blood Culture - Final No growth in 5 days. 07/16/25 03:44 Urine, Catheterized Urine Culture - Final Culture exhibits no growth. 07/16/25 03:36 Sputum, Induced/Lukens Gram Stain - Final 07/16/25 03:36 Sputum, Induced/Lukens Respiratory Culture - Final Mixed normal respiratory renu. No Streptococcus pneumoniae, beta-hemolytic Streptococcus or Staphylococcus aureus isolated. 07/16/25 10:30 Nasal Secretion MRSA (PCR) - Final 07/16/25 09:20 Mucosa - Nasopharyngeal Respiratory Panel (PCR) - Final 07/16/25 08:25 Urine Catheter - Madrigal Legionella Antigen - Final 07/16/25 08:25 Urine Catheter - Madrigal Streptococcus pneumoniae Antigen (M - Final 07/16/25 03:44 Mucosa - Nose SARS-CoV-2, Influenza & RSV (PCR) - Final ABG Data ABG results: ABG 07/16/25 09:42 Specimen Type ART Sample Site L Radial pH 7.49 H Bicarbonate Actual 29.1 H Total CO2 30 Base Excess 6 H O2 Saturation 98 O2 % 50.0 ABG pCO2 38.6 ABG pO2 96 Judith Test N/A Respiration Rate 20 O2 Delivery Device Adult Vent Vent Mode AC Tidal Volume 400.0 POC PEEP 5 Radiography Diagnostic Testing: Radiology Impression Echocardiogram 07/16/25 06:31 Interpretation Summary Mild concentric left ventricular hypertrophy. Inferior hypokinesis. Estimated LVEF 55%. Stage I diastolic dysfunction. Moderate posterior mitral valve annular calcification. Calcified chord. Mild mitral valve regurgitation. Mild tricuspid valve insufficiency. Mildly calcified aortic valve leaflets. Aortic valve sclerosis without stenosis. Mild (1+) pulmonic valve insufficiency. Ordering Physician: Jack Zuniga Performed By: Jake Miguel RCS Chest X-Ray 07/16/25 09:05 IMPRESSION: Tubes and lines in position. There interstitial infiltrates in the perihilar region bilaterally and in the left upper lung. Reading Location: [facility] Chest X-Ray 07/17/25 05:10 IMPRESSION: Tubes and lines in position. There are perihilar infiltrates in the right and left, improved. Reading Location: [facility] Physical Exam Const alert, oriented x3 and no apparent distress General Appearance: cooperative, ill appearing Positive for chronically and frail HEENT normocephalic and head/scalp atraumatic Eyes EOMs intact bilaterally, conjunctivae normal and no scleral icterus Neck supple General: trachea midline Chest Chest Narrative: Increased AP diameter. Resp Auscultation: diminished lung sounds; Negative for rales, rhonchi or wheezes Cardio regular rate and regular rhythm GI normal to inspection, nondistended, normoactive bowel sounds Extremity no clubbing, cyanosis or edema Skin no rashes or lesions noted Neuro CN's II-XII intact bilaterally, moves all extremities and no focal motor deficits Psych cooperative and affect normal Charges/Coding Visit Charges Inpatient E&M: 36118 Subs Hosp L3 07/22/25 0848 <Electronically signed by Eleazar Valle DO> Cosigner Signature (if applicable): CC: ~ Signed [facility] Work Phone: 1(735) 363-411709-29-2025 Progress note Author Earline Camargo [facility] Note Date/Time July 21, 2025 9:09pm [facility] Medical Records Department [address] [place] [address] Progress Note - Hospitalist 07/21/252058 MR#: [id number] Acct: [id number] Name: ZABRINA HSU Rep #:[id number] : 1955 70 From: Earline Mayo P-C PCP: SEUN Alvarez Status:ADM IN Location: ICU ICU01-1 Hospitalist Note Pt sitting up in chair surrounded by family, hyperventilating, anxious, and hypertensive. Extubated from vent this AM. Reports not getting enough air, SBP 153, HR 110s, RR low 30s, p.oximetry 89% and shaky without reliant waveform pleth. I ordered morphine 2mg IV x1 now for air hunger and anxiety; this was given at 1936; Briefly effective. 2049-pt states that her hands are tingling; SBP 176, RR 25, p.ox 97%. I ordered haloperidol 2mg IV x1 now as she is NPO and unable to take her scheduled quetiapine 50mg this night. QT measures 0.33 07/21/252108 <Electronically signed by Earline Camargo GEOSCIENTISTAaronC> Cosigner Signature (if applicable): CC: ~ Signed [facility] Work Phone: [phone]) 953-451309-29-2025 Progress note Author Renee Alysha [facility] Note Date/Time July 21, 2025 5:28pm [facility] Medical Records Department [address] [place] [address] Progress Note 07/21/25 1406 MR#: [id number] Acct: [id number] Name: ZABRINA HSU Rep #:[id number] : 1955 70 From: Renee Encarnacion MD PCP: SEUN Alvarez Status:ADM IN Location: ICU ICU01-1 Subjective Subjective Patient seen and examined this morning. She was extubated this morning. She was on 2 L of oxygen. Patient was very tearful during my review. She denied being in pain or feeling short of breath but would not or could not tell me exactly was wrong with her that she was tearful. Unable to do review of systemsdue to her being tearful. SHe is on 2L of oxygen. Objective Data Objective Data Vital Signs: Vital Signs Temp Pulse Resp BP Pulse Ox O2 Del Method O2 Flow Rate 100.9 F H 88 15 170/69 H 100 Nasal Cannula 2 07/21/25 11:00 07/21/25 14:00 07/21/25 14:00 07/21/25 14:00 07/21/25 14:00 07/21/25 14:00 07/21/25 14:00 FiO2 35 07/21/25 08:00 Oxygen Flow Rate (L/min) 2 Oxygen Delivery Method Nasal Cannula Weight: 114 lb 6.719 oz Body Mass Index (BMI) 19.5 Intake & Output: Intake and Output for Last 24 Hours 07/19/25 07/20/25 07/21/25 23:59 23:59 23:59 Intake Total 2999.69 / 3036.09 2358.52 / 2467.62 1789.96 / 1789.96 Output Total 2100 / 2100 2475 / 2475 1750 / 1750 Balance 899.69 / 936.09 -116.48 / -7.38 39.96 / 39.96 Lab / Micro Data 07/21/25 03:30 07/21/25 03:30 Labs: Laboratory Results - last 24 hr 07/20/25 18:09: POC Glucose 179 H 07/20/25 23:47: POC Glucose 159 H 07/21/25 03:30: WBC 11.5 H, RBC 3.70 L, Hgb 10.6 L, Hct 32.5 L, MCV 87.8, MCH 28.6, MCHC 32.6, RDW Std Deviation 48.8 H, RDW Coeff of Shivam 15.3 H, Plt Count 389, MPV 9.5, Immature Gran % (Auto) 1.800 H, Neut % (Auto) 83.2 H, Lymph % (Auto) 8.8 L, [place] % (Auto) 5.8, Eos % (Auto) 0.1, Baso % (Auto) 0.3, Absolute Neuts (auto) 9.5 H, Absolute Lymphs (auto) 1.01, Nucleated RBC % 0, Sodium 141, Potassium 3.9, Chloride 104, Carbon Dioxide 23.5, Anion Gap 14, BUN 39 H, Creatinine 0.83, Estim Creat Clear Calc 50.05, Est GFR (MDRD) Non-Af 76, BUN/Creatinine Ratio 47.6 H, Glucose 167 H, Calcium 8.6 07/21/25 05:34: POC Glucose 161 H 07/21/25 11:55: POC Glucose 126 H Micro: Microbiology 07/16/25 04:20 Blood Culture (Wb) - Left Hand Blood Culture - Final No growth in 5 days. 07/16/25 04:05 Blood Culture (Wb) - Right Hand Blood Culture - Final No growth in 5 days. 07/16/25 03:44 Urine, Catheterized Urine Culture - Final Culture exhibits no growth. 07/16/25 03:36 Sputum, Induced/Lukens Gram Stain - Final 07/16/25 03:36 Sputum, Induced/Lukens Respiratory Culture - Final Mixed normal respiratory renu. No Streptococcus pneumoniae, beta-hemolytic Streptococcus or Staphylococcus aureus isolated. 07/16/25 10:30 Nasal Secretion MRSA (PCR) - Final 07/16/25 09:20 Mucosa - Nasopharyngeal Respiratory Panel (PCR) - Final 07/16/25 08:25 Urine Catheter - Madrigal Legionella Antigen - Final 07/16/25 08:25 Urine Catheter - Madrigal Streptococcus pneumoniae Antigen (M - Final 07/16/25 03:44 Mucosa - Nose SARS-CoV-2, Influenza & RSV (PCR) - Final Physical Exam Const alert Constitutional Narrative: tearful, in mild distress HEENT normocephalic, head/scalp atraumatic and oropharynx normal Eyes EOMs intact bilaterally Neck supple Lymph Lymphatic: no lymphedema noted Resp Resp Narrative: mildly diminished breath sounds bibasally, no wheezes or crackles. On 2L of oxygen by nasal canula Cardio regular rate, regular rhythm, S1 normal heart sound, S2 normal heart sound and no murmurs GI normal to inspection, nondistended, normoactive bowel sounds, soft to palpation and non-tender Extremity normal capillary refill General Extremity: no tenderness to palpation of joints or extremities Skin General Skin Exam: no breakdown Neuro no focal motor deficits and no sensory deficits noted Motor Exam: general weakness Psych Psych Narrative: patient very tearful Mood & Affect: anxious Assessment & Plan Assessment/Plan (1) Acute respiratory failure with hypoxia and hypercapnia: (2) Pneumonia: QUALIFIERS: Pneumonia type: due to unspecified organism Laterality: bilateral Lung location: unspecified part of lung Qualified Code(s): J18.9 - Pneumonia, unspecified organism PLAN: Plan #Acute hypoxic respiratory failure * Patient extubated this morning. Currently on 2 L of oxygen. * Thought to be due to acute exacerbation of COPD as well as heart failure and possible pneumonia. On empiric IV ceftriaxone and azithromycin. * Urine for strep and Legionella negative. Respiratory panel negative. * Awaiting swallow evaluation today. Titrate oxygen to maintain saturation above 90%. * On IV Solu-Medrol as well as IV Lasix. * To complete a 7-day course of antibiotics. #Elevated troponin: * 2D echo showed no regional wall motion abnormalities. * 2D echo showed EF of 55% and inferior hypokinesis. * Thought to be due to demand ischemia from hypertension and respiratory failure. No need for further workup now. #Hypertensive emergency: * Blood pressure was markedly elevated at 257/127 on admission and there were concerns of flash pulmonary edema. * IV hydralazine as needed. Resume oral meds once patient passes swallow evaluation. #CAD s/p stents: On sublingual nitroglycerin. 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 Currently stable. #Hyperlipidemia: On statin #Depression: On venlafaxine #History of glaucoma: On brimonidine and dorzolamide eyedrops DVT prophylaxis: Lovenox Charges/Coding Visit Charges Inpatient E&M: 40742 Subs Hosp L2 07/21/25 1728 <Electronically signed by Renee Encarnacion MD> Renee Encarnacion MD Cosigner Signature (if applicable): CC: ~ Signed [facility] Work Phone: [phone] Progress note Author Eleazar Valle [facility] Note Date/Time July 21, 2025 10:38am [facility] Medical Records Department [address] [place] [address] [place] [address] Progress Note - Aoc Director Intelligence Officer 07/21/25 0734 MR#: [id number] Acct: [id number] Name: ZABRINA HSU Rep #:[id number] : 1955 70 From: Eleazar Valle DO PCP: SEUN Alvarez Status:ADM IN Location: ICU ICU01-1 Assessment & Plan Assessment/Plan (1) Acute respiratory failure with hypoxia and hypercapnia: PLAN: Plan RECOMMENDATIONS: 1. Proceed with a trial of extubation this morning. 2. Once extubated, wean supplemental oxygen as tolerated. 3. Perform bedside swallow evaluation with dietary advancement as tolerated. 4. Continue antibiotics to complete 7 days of therapy. (Completion will occur tomorrow) 5. Continue bronchodilators and steroids. 6. Diuresis as tolerated by hemodynamics and renal function. 7. Continue appropriate DVT prophylaxis. 8. Encourage incentive spirometer use and mobilize patient as tolerated. IMPRESSIONS: 1. Acute respiratory failure with hypoxemia and hypercapnia Most likely multifactorial in etiology. The patient has a known history of COPDand a longstanding tobacco abuse history, but presented to the emergency department profoundly hypertensive with what I suspect is a component of flash pulmonary edema. The patient was ultimately intubated in the emergency department. With supportive care, including antimicrobials, steroids and diuretics, the patient has improved clinically. The patient passed her spontaneous breathing trial this morning, and will therefore be extubated. Onceextubated, recommend weaning supplemental oxygen as tolerated. Perform bedside swallow evaluation with dietary advancement as tolerated. If needed, noninvasive positive pressure ventilatory support can be utilized if the patientdecompensates after extubation. 2. History of coronary artery disease status post PCI/history of hypertrophic cardiomyopathy/valvular heart disease Continue diuretics as tolerated by hemodynamics and renal function. 3. Chronic tobacco dependency/depression/glaucoma/hyperlipidemia Complicates care, management, recovery and prognosis. Continue supportive measures as noted above. PT/OT to work with the patient. Bedside swallow evaluation to be completed prior to advancement of diet. TIME: 35 minutes of critical care time, independent of procedures, was spent addressing the patient's acute respiratory failure with hypoxemia and hypercapnia, review of all data and collaboration with the care team. Subjective Subjective The patient was seen and examined at the bedside this morning. Events from the last 24 hours have been reviewed. The patient currently has a fever, but remains otherwise hemodynamically stable on assist-control mode of mechanical ventilation with an FiO2 requirement of 25% and PEEP of 5. The patient failed her spontaneous awakening/breathing trials over the weekend. White blood cell count this morning was noted to be 11,000 with a hemoglobin of 10.6 g/dL and normal platelet count. Creatinine is within normal limits. The patient has been tolerant of tube feeding. Following my initial evaluation of the patient, she was able to complete a spontaneous awakening trial, which was then followed by a complete spontaneous breathing trial. The patient was subsequently extubated. Objective Data Objective Data The patient's most recent lab work, culture data and imaging studies have all been personally reviewed. Surface echocardiogram demonstrated mild concentric LVH with an ejection fraction of 55% and stage I diastolic dysfunction. Sputum,blood and urine cultures have not demonstrated any growth to date. Vital Signs: Vital Signs Temp Pulse Resp BP Pulse Ox O2 Del Method O2 Flow Rate 1101.6 F H 70 20 H 159/63 H 96 Mechanical Ventilator 94 07/21/25 07:00 07/21/25 07:00 07/21/25 07:00 07/21/25 07:00 07/21/25 07:00 07/21/25 07:00 07/17/25 01:00 FiO2 25 07/21/25 07:00 Oxygen Flow Rate (L/min) 94 Oxygen Delivery Method Mechanical Ventilator Weight: 114 lb 6.719 oz Body Mass Index (BMI) 19.5 Intake & Output: Intake and Output for Last 24 Hours 07/19/25 07/20/25 07/21/25 23:59 23:59 23:59 Intake Total 2999.69 / 3036.09 2358.52 / 2467.62 496.23 / 496.23 Output Total 2100 / 2100 2475 / 2475 400 / 400 Balance 899.69 / 936.09 -116.48 / -7.38 96.23 / 96.23 Lab / Micro Data Attestation: I reviewed the patient's lab results. 07/21/25 03:30 07/21/25 03:30 Labs: Laboratory Results - last 24 hr 07/20/25 10:50: Vancomycin Trough 13.3 07/20/25 11:59: POC Glucose 170 H 07/20/25 18:09: POC Glucose 179 H 07/20/25 23:47: POC Glucose 159 H 07/21/25 03:30: WBC 11.5 H, RBC 3.70 L, Hgb 10.6 L, Hct 32.5 L, MCV 87.8, MCH 28.6, MCHC 32.6, RDW Std Deviation 48.8 H, RDW Coeff of Shivam 15.3 H, Plt Count 389, MPV 9.5, Immature Gran % (Auto) 1.800 H, Neut % (Auto) 83.2 H, Lymph % (Auto) 8.8 L, [place] % (Auto) 5.8, Eos % (Auto) 0.1, Baso % (Auto) 0.3, Absolute Neuts (auto) 9.5 H, Absolute Lymphs (auto) 1.01, Nucleated RBC % 0, Sodium 141, Potassium 3.9, Chloride 104, Carbon Dioxide 23.5, Anion Gap 14, BUN 39 H, Creatinine 0.83, Estim Creat Clear Calc 50.05, Est GFR (MDRD) Non-Af 76, BUN/Creatinine Ratio 47.6 H, Glucose 167 H, Calcium 8.6 07/21/25 05:34: POC Glucose 161 H Micro: Microbiology 07/16/25 04:20 Blood Culture (Wb) - Left Hand Blood Culture - Preliminary No growth in 48 hours. 07/16/25 04:05 Blood Culture (Wb) - Right Hand Blood Culture - Preliminary No growth in 48 hours. 07/16/25 03:44 Urine, Catheterized Urine Culture - Final Culture exhibits no growth. 07/16/25 03:36 Sputum, Induced/Lukens Gram Stain - Final 07/16/25 03:36 Sputum, Induced/Lukens Respiratory Culture - Final Mixed normal respiratory renu. No Streptococcus pneumoniae, beta-hemolytic Streptococcus or Staphylococcus aureus isolated. 07/16/25 10:30 Nasal Secretion MRSA (PCR) - Final 07/16/25 09:20 Mucosa - Nasopharyngeal Respiratory Panel (PCR) - Final 07/16/25 08:25 Urine Catheter - Madrigal Legionella Antigen - Final 07/16/25 08:25 Urine Catheter - Madrigal Streptococcus pneumoniae Antigen (M - Final 07/16/25 03:44 Mucosa - Nose SARS-CoV-2, Influenza & RSV (PCR) - Final ABG Data ABG results: ABG 07/16/25 09:42 Specimen Type ART Sample Site L Radial pH 7.49 H Bicarbonate Actual 29.1 H Total CO2 30 Base Excess 6 H O2 Saturation 98 O2 % 50.0 ABG pCO2 38.6 ABG pO2 96 Judith Test N/A Respiration Rate 20 O2 Delivery Device Adult Vent Vent Mode AC Tidal Volume 400.0 POC PEEP 5 Radiography Diagnostic Testing: Radiology Impression Echocardiogram 07/16/25 06:31 Interpretation Summary Mild concentric left ventricular hypertrophy. Inferior hypokinesis. Estimated LVEF 55%. Stage I diastolic dysfunction. Moderate posterior mitral valve annular calcification. Calcified chord. Mild mitral valve regurgitation. Mild tricuspid valve insufficiency. Mildly calcified aortic valve leaflets. Aortic valve sclerosis without stenosis. Mild (1+) pulmonic valve insufficiency. Ordering Physician: Jack Zuniga Performed By: Jake Miguel RCS Chest X-Ray 07/16/25 09:05 IMPRESSION: Tubes and lines in position. There interstitial infiltrates in the perihilar region bilaterally and in the left upper lung. Reading Location: [facility] Chest X-Ray 07/17/25 05:10 IMPRESSION: Tubes and lines in position. There are perihilar infiltrates in the right and left, improved. Reading Location: [facility] Physical Exam Const Constitutional Narrative: The patient remains intubated and mechanically ventilated. Currently toleratingspontaneous mode of mechanical ventilation. General Appearance: frail HEENT normocephalic and head/scalp atraumatic Mouth: endotracheal tube in place and OG tube in place Eyes EOMs intact bilaterally, conjunctivae normal and no scleral icterus Neck supple General: trachea midline Chest Chest Narrative: Increased AP diameter. Resp Auscultation: diminished lung sounds; Negative for rales, rhonchi or wheezes Cardio regular rate and regular rhythm GI normal to inspection, nondistended, normoactive bowel sounds Extremity no clubbing, cyanosis or edema Skin no rashes or lesions noted Neuro Neuro Narrative: Alert and able to follow simple commands. Charges/Coding Procedures Hospitalists Procedures: 88194 Critical Care 1st Hr 07/21/25 1038 <Electronically signed by Eleazar Valle DO> Cosigner Signature (if applicable): CC: ~ Signed [facility] Work Phone: [phone] Consult note Author Mateo Gonzales [facility] Note Date/Time July 21, 2025 7:34am [facility] Medical Records Department [address] [place] [address] Pharmacokinetic/Renal -Consult 07/20/25 1137 MR#: [id number] Acct: [id number] Name: ZABRINA HSU Rep #:[id number] : 1955 70 From: Mateo Gonzales PCP: SEUN Alvarez Status:ADM IN Y Location: ICU ICU01-1 Consult Antibiotic Management Pharmacy has been consulted to manage selected antibiotic: Vancomycin Type of Intervention Type of Consult: Follow-up Suspected Infection Suspected Infection: Pneumonia Prior Doses of Antibiotics Prior Doses of Antibiotics Received/Current Regimen: Vancomycin 1250 mg Q24H Labs Labs: Sodium 139 mmol/L (133-145) 07/20/25 03:24 Potassium 4.4 mmol/L (3.3-5.1) 07/20/25 03:24 Chloride 105 mmol/L (98-108) 07/20/25 03:24 Carbon Dioxide 22.2 mmol/L (21.0-32.0) 07/20/25 03:24 Anion Gap 12 (5-15) 07/20/25 03:24 BUN 42 mg/dL (4-19) H 07/20/25 03:24 Creatinine 0.89 mg/dL (0.70-1.20) 07/20/25 03:24 Est GFR (MDRD) Non-Af 69 (>60) 07/20/25 03:24 BUN/Creatinine Ratio 47.3 RATIO (10-20) H 07/20/25 03:24 Glucose 194 mg/dL (70-99) H 07/20/25 03:24 Vancomycin Trough 13.3 ug/mL (5.0-15.0) 07/20/25 10:50 Microbiology Microbiology: Microbiology 07/16/25 04:20 Blood Culture (Wb) - Left Hand Blood Culture - Preliminary No growth in 48 hours. 07/16/25 04:05 Blood Culture (Wb) - Right Hand Blood Culture - Preliminary No growth in 48 hours. 07/16/25 03:44 Urine, Catheterized Urine Culture - Final Culture exhibits no growth. 07/16/25 03:36 Sputum, Induced/Lukens Gram Stain - Final 07/16/25 03:36 Sputum, Induced/Lukens Respiratory Culture - Final Mixed normal respiratory renu. No Streptococcus pneumoniae, beta-hemolytic Streptococcus or Staphylococcus aureus isolated. 07/16/25 10:30 Nasal Secretion MRSA (PCR) - Final 07/16/25 09:20 Mucosa - Nasopharyngeal Respiratory Panel (PCR) - Final 07/16/25 08:25 Urine Catheter - Madrigal Legionella Antigen - Final 07/16/25 08:25 Urine Catheter - Madrigal Streptococcus pneumoniae Antigen (M - Final 07/16/25 03:44 Mucosa - Nose SARS-CoV-2, Influenza & RSV (PCR) - Final Dosing Weight Weight used for dosin kg Estimated Creatinine Clearance Estimated Creatinine Clearance: ~ 46 Goal Trough Goal Trough: 15-20 mcg/mL Pharmacy Plan for Drug Dosing Pharmacy Plan for Drug Dosing: Vancomycin trough = 13.3, increase to 1500 mg Q24H Pharmacy Service will continue to monitor and adjust dosing as required. Follow-Up Labs Follow-Up Labs: Trough: Vancomycin Date/Time Labs Ordered Labs to be done on [date and time ordered]: 07/22/25 @ 1130 07/20/25 1138 <Electronically signed by Mateo Man r> Date _ Mateo Gonzales 07/21/25 0734 <Electronically signed by Eleazar Huynh O> Cosigner Signature (if applicable): Date Eleazar Valle DO CC: ~ Signed [facility] Work Phone: [phone] Progress note Author Gerard Santos [facility] Note Date/Time July 20, 2025 11:57am [facility] Medical Records Department [address] [place] [address] Progress Note - Hospitalist 07/20/25 0836 MR#: [id number] Acct: [id number] Name: ZABRINA HSU Rep #:[id number] : 1955 70 From: Gerard Santos DO PCP: SEUN Alvarez Status:ADM IN Location: ICU ICU01-1 Reason for Visit Chief Complaint: SOB. Subjective Subjective Maxxed on dexmedetomidine and fentanyl. Objective Data Objective Data Vital Signs: Vital Signs Temp Pulse Resp BP Pulse Ox O2 Del Method O2 Flow Rate 37.4 C H 65 20 H 163/65 H 93 Mechanical Ventilator 94 07/20/25 07:00 07/20/25 07:00 07/20/25 07:00 07/20/25 07:00 07/20/25 07:00 07/20/25 07:00 07/17/25 01:00 FiO2 30 07/20/25 07:00 Oxygen Flow Rate (L/min) 94 Oxygen Delivery Method Mechanical Ventilator Weight: 51 kg Body Mass Index (BMI) 19.2 Intake & Output: Intake and Output for Last 24 Hours 07/18/25 07/19/25 07/20/25 23:59 23:59 23:59 Intake Total 2249.70 / 2868.53 2999.69 / 3036.09 477.02 / 477.02 Output Total 2049 / 2099 275 / 275 Balance 199.70 / 818.53 899.69 / 936.09 202.02 / 202.02 Lab / Micro Data 07/20/25 03:24 07/20/25 03:24 Labs: Laboratory Results - last 24 hr 07/19/25 11:25: POC Glucose 125 H 07/19/25 17:06: POC Glucose 166 H 07/19/25 22:54: POC Glucose 163 H 07/20/25 03:24: WBC 11.4 H, RBC 3.70 L, Hgb 10.5 L, Hct 33.0 L, MCV 89.2, MCH 28.4, MCHC 31.8 L, RDW Std Deviation 49.8 H, RDW Coeff of Shivam 15.4 H, Plt Count 385, MPV 9.6, Immature Gran % (Auto) 0.900, Neut % (Auto) 89.3 H, Lymph % (Auto)5.2 L, [place] % (Auto) 4.5, Eos % (Auto) 0.0, Baso % (Auto) 0.1, Absolute Neuts (auto) 10.2 H, Absolute Lymphs (auto) 0.59 L, Nucleated RBC % 0, Sodium 139, Potassium 4.4, Chloride 105, Carbon Dioxide 22.2, Anion Gap 12, BUN 42 H, Creatinine 0.89, Estim Creat Clear Calc 46.22 L, Est GFR (MDRD) Non-Af 69, BUN/Creatinine Ratio 47.3 H, Glucose 194 H, Calcium 8.2 07/20/25 05:07: POC Glucose 176 H Micro: Microbiology 07/16/25 04:20 Blood Culture (Wb) - Left Hand Blood Culture - Preliminary No growth in 48 hours. 07/16/25 04:05 Blood Culture (Wb) - Right Hand Blood Culture - Preliminary No growth in 48 hours. 07/16/25 03:44 Urine, Catheterized Urine Culture - Final Culture exhibits no growth. 07/16/25 03:36 Sputum, Induced/Lukens Gram Stain - Final 07/16/25 03:36 Sputum, Induced/Lukens Respiratory Culture - Final Mixed normal respiratory renu. No Streptococcus pneumoniae, beta-hemolytic Streptococcus or Staphylococcus aureus isolated. 07/16/25 10:30 Nasal Secretion MRSA (PCR) - Final 07/16/25 09:20 Mucosa - Nasopharyngeal Respiratory Panel (PCR) - Final 07/16/25 08:25 Urine Catheter - Madrigal Legionella Antigen - Final 07/16/25 08:25 Urine Catheter - Madrigal Streptococcus pneumoniae Antigen (M - Final 07/16/25 03:44 Mucosa - Nose SARS-CoV-2, Influenza & RSV (PCR) - Final Physical Exam Const no apparent distress Constitutional Narrative: follows commands. intubated. HEENT head/scalp atraumatic and moist oral mucous membranes Resp normal respiratory effort, no retractions, no use of accessory muscles and clearto auscultation bilaterally Cardio regular rate, regular rhythm, S1 normal heart sound and S2 normal heart sound GI normal to inspection, nondistended, normoactive bowel sounds, soft to palpation and non-tender Extremity normal to inspection and full ROM Neuro moves all extremities Sensorium / Orientation: awake Assessment & Plan Assessment/Plan (1) COPD exacerbation: (2) Pneumonia: QUALIFIERS: Laterality: bilateral Lung location: unspecified partof lung Pneumonia type: due to unspecified organism Qualified Code(s): J18.9 -Pneumonia, unspecified organism (3) Acute hypoxic on chronic hypercapnic respiratory failure: (4) CHF exacerbation: QUALIFIERS: Heart failure type: unspecified Qualified Code(s): I50.9 - Heart failure, unspecified (5) Elevated troponin: (6) Hypertensive emergency: (7) Transaminitis: PLAN: Plan Acute Hypoxic and Hypercapnic Respiratory Failure * ABG pH 7.06/ PCO2 75.1 mmHg/ PO2 73 mmHg/ HCO3 21.2 mmHg @ 86% on * ventilator * [facility] for vent mgmt * 2/2 to AECOPD, AECHF, possible pneumonia * on empiric abx. * respiratory panel, legionella strep antigens negative AECOPD: * Continue IV methylprednisolone and give scheduled plus prn nebulizers. Acute HFpEF * concern for flash pulmonary edema. * EF 55% on echo from 07/16/2025 * on IV furosemide 40/d Elevated troponin * trending down. No wall motion abnormality on echo. * Demand ischemia from respiratory failure and hypertensive emergency. * No additional work up Hypertensive emergency * improved * elevated blood pressure of 257/127 mmHg with concerns for flash pulmonary edema. * On IV furosemide and PRN hydralazine. Hyperglycemia * improved * a1c 6.1 * of 368 mg/dL present on admission suspicious for DM-2 adding to the burden of disease * add glargine given persistent hyperglycemia with steroids and tube feeds. Chronic conditions: * CAD; s/p stents x 3 RCA + LAD x 1 (2016) on BASA plus prn SL NTG - Continue BASA daily and serialize troponin. 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 * Hyperlipidemia; on atorvastatin - Maintain statin and check Lipid Profile. * OAB; on oxybutynin - Continue present therapy. * Depression; on venlafaxine - Restart this agent after extubation. * Glaucoma; on brimonidine daily and dorzolamide eyes drops TID - Maintain current therapy. DVT/GI prophylaxis - Lovenox 40 mg sq daily plus SCD's. Pantoprazole 40 mg IV daily. Charges/Coding Visit Charges Inpatient E&M: 79602 Subs Hosp L2 07/20/25 1157 <Electronically signed by Gerard Santos DO> Cosigner Signature (if applicable): CC: ~ Signed [facility] Work Phone: [phone] Progress note Author Reid Murillo [facility] Note Date/Time July 20, 2025 9:07am [facility] Medical Records Department [address] [facility] [place] [address] Progress Note - Aoc Director Intelligence Officer 07/20/25 09 MR#: [id number] Acct: [id number] Name: ZABRINA HSU Rep #:[id number] : 1955 70 From: Reid Murillo MD PCP: SEUN Alvarez Status:ADM IN Location: ICU ICU01-1 Objective Data Objective Data Vital Signs: Vital Signs Last response 3 Temperature 37.4 C H 07/20/25 08:00 Temperature Source Core 07/20/25 08:00 Pulse Rate 68 07/20/25 08:00 Pulse Strength Weak (1+) 07/19/25 19:08 Respiratory Rate 20 H 07/20/25 08:00 Respiratory Effort Normal, Non-Labored 07/20/25 08:00 Respiratory Depth Normal 07/20/25 08:00 Respiratory Pattern Normal 07/20/25 08:00 Blood Pressure 177/68 H 07/20/25 08:00 Blood Pressure Mean 104 07/20/25 08:00 Blood Pressure Source Monitor 07/20/25 08:00 Blood Pressure Position Semi-Fowlers 07/20/25 08:00 Blood Pressure Location Left Arm 07/20/25 08:00 Pulse Ox 96 07/20/25 08:00 Oxygen Delivery Method Mechanical Ventilator 07/20/25 08:00 Oxygen Flow Rate (L/min) 94 07/17/25 01:00 Fraction of Inspired Oxygen (FIO2) 30 07/20/25 08:00 I&O: I&O Last 24 Hours 3 07/19/25 07/19/25 07/20/25 11:59 23:59 11:59 Intake Total 1820.60 / 3036.09 1179.09 / 3036.09 477.02 / 477.02 Output Total 400 / 2100 1700 / 2100 275 / 275 Balance 1420.60 / 936.09 -520.91 / 936.09 202.02 / 202.02 I&O: Total Stay 3 07/16/25 03:07 thru 07/20/25 07:51 Intake Total 8843.27 Output Total 9085 Balance -241.73 Current Meds Ordered / Administered: Current meds ordered / Administered 3 Generic Name Dose Route Start Last Admin Trade Name Freq PRN Reason Stop Dose Admin Acetaminophen 650 mg 07/19/25 16:10 07/19/25 17:09 Acetaminophen 650 Mg/20 Ml Udc GT 650 mg Q6H PRN PRN Administration Pain 1-10 or Fever Albuterol/Ipratropium 3 ml 07/16/25 10:15 07/20/25 06:54 Ipratropium/Albuterol Sulfate 3 Ml Ampul.Neb INHALATION 3 ml Q6H.RT TIMOTHY Administration Amlodipine Besylate 5 mg 07/17/25 14:45 07/19/25 09:09 Amlodipine 5 Mg Tablet PO 5 mg DAILY TIMOTHY Administration Protocol Aspirin 81 mg 07/18/25 10:00 07/19/25 09:09 Aspirin 81 Mg Tab.Chew GT 81 mg BREAKFAST TIMOTHY Administration Atorvastatin Calcium 40 mg 07/16/25 22:00 07/19/25 20:33 Atorvastatin Calcium 40 Mg Tablet PO 40 mg QHS TIMOTHY Administration Brimonidine Tartrate 1 drp 07/16/25 10:00 07/19/25 09:09 Brimonidine 0.2% 5ml Bottle OPHTHALMIC 1 drp DAILY TIMOTHY Administration Chlorhexidine Gluconate 1 each 07/17/25 10:00 07/20/25 00:46 Chlorhexidine Gluc 2% Cloth 1 Each Towelette TOPICAL 1 each DAILY TIMOTHY Administration Chlorhexidine Gluconate 15 ml 07/17/25 10:00 07/19/25 20:38 Chlorhexidine 15 Ml PO 15 ml BID TIMOTHY Administration Clopidogrel Bisulfate 75 mg 07/18/25 10:00 07/19/25 09:10 Clopidogrel Bisulfate 75 Mg Tablet PO 75 mg DAILY TIMOTHY Administration Dorzolamide HCl 1 drp 07/16/25 14:00 07/20/25 05:11 Dorzolamide 2% 10ml Bottle OPHTHALMIC 1 drp TID TIMOTHY Administration Enoxaparin Sodium 40 mg 07/18/25 10:00 07/19/25 09:09 Enoxaparin 40 Mg/0.4 Ml Syringe SC 40 mg DAILY TIMOTHY Administration Furosemide 40 mg 07/16/25 07:56 07/19/25 09:09 Furosemide 40 Mg/4 Ml Vial IV 40 mg DAILY TIMOTHY Administration Protocol Glucagon 1 mg 07/16/25 07:56 Glucagon 1 Mg/Ml Syringe IM X1 PRN Hypoglycemia Protocol Hydralazine HCl 5 mg 07/16/25 07:56 07/19/25 18:02 Hydralazine 20 Mg/Ml Vial IV 5 mg Q8H PRN PRN Administration SBP GREATER THAN 180 Protocol Dextrose 250 mls @ 0 mls/hr 07/16/25 07:56 Dextrose 10%-Water IV .Q0M PRN HYPOGLYCEMIA Protocol As Directed Sodium Chloride 250 mls @ 15 mls/hr 07/16/25 07:59 07/20/25 06:02 IV 0 mls/hr .[id number] PRN Infusion Saline Flush Sodium Chloride 250 mls @ 15 mls/hr 07/16/25 07:59 IV .[id number] PRN Additional IVPB Infusion Fentanyl 100 mls @ 5 mls/hr 07/16/25 08:15 07/20/25 07:00 CONT INF 175 mcg/hr UD TIMOTHY 17.5 mls/hr Protocol Titration 50 MCG/HR Pantoprazole Sodium 40 mg/ 100 mls @ 330 mls/hr 07/16/25 08:30 07/19/25 09:39 Sodium Chloride IV Infused Q24 TIMOTHY Infusion Vancomycin IV-PHARMACY TO DOSE 500 mls @ 250 mls/hr 07/16/25 08:29 1 each/ Sodium Chloride IV X1 PRN Rx to Dose Protocol Piperacillin Sod/Tazobactam 50 mls @ 12.5 mls/hr 07/16/25 14:00 07/20/25 05:11 Sod 3.375 gm/ Sodium Chloride IV 12.5 mls/hr Q8 TIMOTHY Administration Enteral Nutritional Formula 1,000 mls @ 45 mls/hr 07/17/25 10:05 07/20/25 02:14 Vital Af 1.2 Blake Liquid GT Not Given .[id number] TIMOTHY Propofol 1,000 mg in 100 mls @ 3.06 mls/hr 07/18/25 01:15 07/20/25 00:41 Diprivan CONT INF Not Given .Q12H TIMOTHY Protocol 10 MCG/KG/MIN Vancomycin HCl 1,250 mg/ 275 mls @ 167 mls/hr 07/18/25 12:00 07/19/25 13:10 Sodium Chloride IV Infused Q24H TIMOTHY Infusion Dexmedetomidine HCl 1,000 mcg/ 250 mls @ 6.375 mls/hr 07/19/25 22:00 07/20/2507:00 Sodium Chloride CONT INF 1.5 mcg/kg/hr .[id number] TIMOTHY 19.1 mls/hr Protocol Titration 0.5 MCG/KG/HR Insulin Glargine 10 unit 07/19/25 10:00 07/19/25 09:12 Insulin Glargine-Yfgn 100 Unit/Ml Pen SC 10 unit DAILY TIMOTHY Administration Insulin Human Lispro 0 unit 07/17/25 12:00 07/20/25 05:11 Insulin Lispro 100 Unit/Ml Insuln.Pen SC 1 units Q6H TIMOTHY Administration Protocol Methylprednisolone Sodium Succinate 60 mg 07/16/25 10:00 07/19/25 20:38 Methylprednisolone Sod Succ 40 Mg/Ml Vial IV 60 mg BID TIMOTHY Administration Quetiapine Fumarate 50 mg 07/20/25 10:00 Quetiapine 25 Mg Tablet GT BID [facility] Protocol Sodium Chloride 10 - 40 ml 07/16/25 07:59 07/20/25 05:11 0.9% Saline Lock 10 Ml Syringe IV 20 ml UD PRN Administration SALINE FLUSH Sodium Chloride 10 - 40 ml 07/18/25 06:42 0.9% Saline Lock 10 Ml Syringe IV UD PRN SALINE FLUSH Tolterodine Tartrate 2 mg 07/16/25 10:00 07/19/25 09:09 Tolterodine Tartrate 2 Mg Cap.Sa PO 2 mg DAILY TIMOTHY Administration Vancomycin Protocol 1 lab 07/20/25 10:30 Vancomycin Trough/Random Due MC 07/20/25 12:30 DAILY TIMOTHY Lab / Micro Data Attestation: I reviewed the patient's lab results. 07/20/25 03:24 07/20/25 03:24 Labs: Laboratory Results - last 24 hr 07/19/25 11:25: POC Glucose 125 H 07/19/25 17:06: POC Glucose 166 H 07/19/25 22:54: POC Glucose 163 H 07/20/25 03:24: WBC 11.4 H, RBC 3.70 L, Hgb 10.5 L, Hct 33.0 L, MCV 89.2, MCH 28.4, MCHC 31.8 L, RDW Std Deviation 49.8 H, RDW Coeff of Shivam 15.4 H, Plt Count 385, MPV 9.6, Immature Gran % (Auto) 0.900, Neut % (Auto) 89.3 H, Lymph % (Auto)5.2 L, [place] % (Auto) 4.5, Eos % (Auto) 0.0, Baso % (Auto) 0.1, Absolute Neuts (auto) 10.2 H, Absolute Lymphs (auto) 0.59 L, Nucleated RBC % 0, Sodium 139, Potassium 4.4, Chloride 105, Carbon Dioxide 22.2, Anion Gap 12, BUN 42 H, Creatinine 0.89, Estim Creat Clear Calc 46.22 L, Est GFR (MDRD) Non-Af 69, BUN/Creatinine Ratio 47.3 H, Glucose 194 H, Calcium 8.2 07/20/25 05:07: POC Glucose 176 H Micro: Microbiology 07/16/25 04:20 Blood Culture (Wb) - Left Hand Blood Culture - Preliminary No growth in 48 hours. 07/16/25 04:05 Blood Culture (Wb) - Right Hand Blood Culture - Preliminary No growth in 48 hours. Assessment and Plan . Assessment and plan: IMPRESSIONS: 1. Acute respiratory failure with hypoxemia and hypercapnia -multifactorial with components of AE COPD plus acute heart failure/ pulmonary edema - pulmonary edema has cleared as of 07/19 CXR - continues to fail SAT with weaning of propofol- currently f/Vt is not too bad but she is showing enough distress that my sense is extubation will fail under current circumstances 2. History of coronary artery disease status post PCI/history of hypertrophic cardiomyopathy/valvular heart disease - diuresis for possible ASHF 3. Chronic tobacco dependency/depression/glaucoma/hyperlipidemia Complicates care, management, recovery and prognosis. Continue supportive measures as noted above. PT/OT to work with the patient. Continue tube feedingas tolerated. RECOMMENDATIONS: - blood gases reviewed, vent adjusted - continue daily SAT/ SBT - will increase Seroquel to 50 mg BID - continue remaining sedation regimen but try not to resume propofol - empiric antimicrobials. - continue bronchodilators and steroids. - tube feeding as tolerated. - standard ICU prophylaxis. Reid Murillo MD Critical Care Time: 50 minutes The entirety of this encounter was done via Telemedicine Physical Exam Const General Appearance: in distress and patient mechanically ventilated HEENT Mouth: endotracheal tube in place Resp no use of accessory muscles Auscultation: diminished lung sounds Subjective Subjective Continues to appear anxious/ uncomfortable with weaning of sedation- currently propofol is off and she grimaces/ winces but denies pain. 07/20/25906 <Electronically signed by Reid Murillo MD> Cosigner Signature (if applicable): CC: ~ Signed [facility] Work Phone: [phone] Progress note Author Gerard Santos [facility] Note Date/Time July 19, 2025 12:35pm [facility] Medical Records Department [address] [place] [address] Progress Note - Hospitalist 07/19/25 0758 MR#: [id number] Acct: [id number] Name: ZABRINA HSU Rep #:[id number] : 1955 70 From: Gerard Santos DO PCP: SEUN Alvarez Status:ADM IN Location: ICU ICU01-1 Reason for Visit Chief Complaint: SOB. Subjective Subjective Still on the ventilator with low-grade temps. Objective Data Objective Data Vital Signs: Vital Signs Temp Pulse Resp BP Pulse Ox O2 Del Method O2 Flow Rate 37.4 C H 66 20 H 169/58 H 95 Mechanical Ventilator 94 07/19/25 07:00 07/19/25 07:00 07/19/25 07:00 07/19/25 07:00 07/19/25 07:40 07/19/25 07:40 07/17/25 01:00 FiO2 30 07/19/25 07:40 Oxygen Flow Rate (L/min) 94 Oxygen Delivery Method Mechanical Ventilator Weight: 50.5 kg Body Mass Index (BMI) 19.0 Intake & Output: Intake and Output for Last 24 Hours 07/17/25 07/18/25 07/19/25 23:59 23:59 23:59 Intake Total 1917.62 / 1995.00 2249.70 / 2868.53 1140.84 / 1140.84 Output Total 1535 / 1710 2050 / 2050 150 / 150 Balance 382.62 / 285.00 199.70 / 818.53 990.84 / 990.84 Lab / Micro Data 07/19/25 02:55 07/19/25 02:55 Labs: Laboratory Results - last 24 hr 07/18/25 10:27: Vancomycin Trough 7.7, Hepatitis A IgM Ab Negative, Hep Bs Antigen Negative, Hep B Core IgM Ab Negative, Hepatitis C Ab (EIA) Non Reactive,Hep C Ab Comment Comment 07/18/25 11:53: POC Glucose 192 H 07/18/25 17:39: POC Glucose 187 H 07/18/25 23:31: POC Glucose 190 H 07/19/25 02:55: WBC 8.5, RBC 3.54 L, Hgb 10.2 L, Hct 31.3 L, MCV 88.4, MCH 28.8,MCHC 32.6, RDW Std Deviation 49.1 H, RDW Coeff of Shivam 15.3 H, Plt Count 348, MPV9.5, Immature Gran % (Auto) 0.700, Neut % (Auto) 90.1 H, Lymph % (Auto) 4.7 L, [place] % (Auto) 4.3, Eos % (Auto) 0.1, Baso % (Auto) 0.1, Absolute Neuts (auto) 7.7, Absolute Lymphs (auto) 0.40 L, Nucleated RBC % 0, Sodium 140, Potassium 3.0L, Chloride 106, Carbon Dioxide 20.7 L, Anion Gap 13, BUN 37 H, Creatinine 0.89,Estim Creat Clear Calc 46.22 L, Est GFR (MDRD) Non-Af 69, BUN/Creatinine Ratio 41.1 H, Glucose 199 H, Calcium 7.4 L 07/19/25 05:14: POC Glucose 192 H Micro: Microbiology 07/16/25 03:44 Urine, Catheterized Urine Culture - Final Culture exhibits no growth. 07/16/25 03:36 Sputum, Induced/Lukens Gram Stain - Final 07/16/25 03:36 Sputum, Induced/Lukens Respiratory Culture - Final Mixed normal respiratory renu. No Streptococcus pneumoniae, beta-hemolytic Streptococcus or Staphylococcus aureus isolated. 07/16/25 10:30 Nasal Secretion MRSA (PCR) - Final 07/16/25 09:20 Mucosa - Nasopharyngeal Respiratory Panel (PCR) - Final 07/16/25 08:25 Urine Catheter - Madrigal Legionella Antigen - Final 07/16/25 08:25 Urine Catheter - Madrigal Streptococcus pneumoniae Antigen (M - Final 07/16/25 03:44 Mucosa - Nose SARS-CoV-2, Influenza & RSV (PCR) - Final ABG Data ABG results: ABG 07/19/25 05:10 Specimen Type ART Sample Site R Brach pH 7.48 H Bicarbonate Actual 27.0 H Total CO2 28 Base Excess 3 H O2 Saturation 89 L O2 % 30.0 ABG pCO2 36.7 ABG pO2 53 L Respiration Rate 20 O2 Delivery Device Adult Vent Vent Mode AC Tidal Volume 400.0 POC PEEP 5 Radiography Diagnostic Testing: Radiology Impression Chest X-Ray 07/19/25 05:56 IMPRESSION: Tubes are as detailed. Improvement in perihilar densities. Reading Location: [facility] Physical Exam Const Constitutional Narrative: intubated. sedated. HEENT head/scalp atraumatic and moist oral mucous membranes HEENT Narrative: ETT OGT in place. Resp normal respiratory effort, no retractions, no use of accessory muscles and clearto auscultation bilaterally Cardio regular rate and regular rhythm GI normal to inspection, nondistended, normoactive bowel sounds, soft to palpation,non-tender and non-distended Neuro Sensorium / Orientation: awake and alert Assessment & Plan Assessment/Plan (1) COPD exacerbation: (2) Pneumonia: QUALIFIERS: Laterality: bilateral Lung location: unspecified partof lung Pneumonia type: due to unspecified organism Qualified Code(s): J18.9 -Pneumonia, unspecified organism (3) Acute hypoxic on chronic hypercapnic respiratory failure: (4) CHF exacerbation: QUALIFIERS: Heart failure type: unspecified Qualified Code(s): I50.9 - Heart failure, unspecified (5) Elevated troponin: (6) Hypertensive emergency: (7) Transaminitis: PLAN: Plan Acute Hypoxic and Hypercapnic Respiratory Failure * ABG pH 7.06/ PCO2 75.1 mmHg/ PO2 73 mmHg/ HCO3 21.2 mmHg @ 86% on * ventilator * CCM for vent mgmt * 2/2 to AECOPD, AECHF, possible pneumonia * on empiric abx. * respiratory panel, legionella strep antigens negative AECOPD: * Started on IV methylprednisolone and give scheduled plus prn nebulizers. Acute HFpEF * concern for flash pulmonary edema. * EF 55% on echo from 07/16/2025 * on IV furosemide. Elevated troponin * trending down. No wall motion abnormality on echo. Hypertensive emergency * improved * elevated blood pressure of 257/127 mmHg with concerns for flash pulmonary edema. * On IV furosemide and PRN hydralazine. Hyperglycemia * improved * a1c 6.1 * of 368 mg/dL present on admission suspicious for DM-2 adding to the burden of disease * add glargine given persistent hyperglycemia. Chronic conditions: * CAD; s/p stents x 3 RCA + LAD x 1 (2016) on BASA plus prn SL NTG - Continue BASA daily and serialize troponin. 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 * Hyperlipidemia; on atorvastatin - Maintain statin and check Lipid Profile. * OAB; on oxybutynin - Continue present therapy. * Depression; on venlafaxine - Restart this agent after extubation. * Glaucoma; on brimonidine daily and dorzolamide eyes drops TID - Maintain current therapy. DVT/GI prophylaxis - Lovenox 40 mg sq daily plus SCD's. Pantoprazole 40 mg IV daily. Charges/Coding Visit Charges Inpatient E&M: 05724 Subs Hosp L2 07/19/25 1238 <Electronically signed by Gerard Santos DO> Cosigner Signature (if applicable): CC: ~ Signed [facility] Work Phone: [phone] Progress note Author Reid Murillo [facility] Note Date/Time July 19, 2025 11:55am [facility] Medical Records Department [address] [place] [address] Progress Note - Aoc Director Intelligence Officer 07/19/25 1144 MR#: [id number] Acct: [id number] Name: ZABRINA HSU Rep #:[id number] : 1955 70 From: Reid Murillo MD PCP: SEUN Alvarez Status:ADM IN Location: ICU ICU-1 Objective Data Objective Data Vital Signs: Vital Signs Last response 3 Temperature 37.7 C H 07/19/25 11:00 Temperature Source Core 07/19/25 11:00 Pulse Rate 61 07/19/25 11:00 Pulse Strength Weak (1+) 07/18/25 19:38 Respiratory Rate 20 H 07/19/25 11:00 Respiratory Effort Mechanically Ventilated 07/19/25 07:40 Respiratory Depth Normal 07/19/25 07:40 Respiratory Pattern Normal 07/19/25 10:31 Blood Pressure 166/66 H 07/19/25 11:00 Blood Pressure Mean 99 07/19/25 11:00 Blood Pressure Source Monitor 07/19/25 11:00 Blood Pressure Position Semi-Fowlers 07/19/25 11:00 Blood Pressure Location Right Forearm 07/19/25 11:00 Pulse Ox 96 07/19/25 11:00 Oxygen Delivery Method Mechanical Ventilator 07/19/25 11:00 Oxygen Flow Rate (L/min) 94 07/17/25 01:00 Fraction of Inspired Oxygen (FIO2) 30 07/19/25 11:00 I&O: I&O Last 24 Hours 3 07/18/25 07/18/25 07/19/25 11:59 23:59 11:59 Intake Total 1212.90 / 2868.53 1036.80 / 2868.53 1810.87 / 1810.87 Output Total 375 / 2050 1675 / 2050 150 / 150 Balance 837.90 / 818.53 -638.20 / 818.53 1660.87 / 1660.87 I&O: Total Stay 3 07/16/25 03:07 thru 07/19/25 11:29 Intake Total 7177.43 Output Total 6860 Balance 317.43 Current Meds Ordered / Administered: Current meds ordered / Administered 3 Generic Name Dose Route Start Last Admin Trade Name Freq PRN Reason Stop Dose Admin Albuterol/Ipratropium 3 ml 07/16/25 10:15 07/19/25 06:37 Ipratropium/Albuterol Sulfate 3 Ml Ampul.Neb INHALATION 3 ml Q6H.RT TIMOTHY Administration Amlodipine Besylate 5 mg 07/17/25 14:45 07/19/25 09:09 Amlodipine 5 Mg Tablet PO 5 mg DAILY TIMOTHY Administration Protocol Aspirin 81 mg 07/18/25 10:00 07/19/25 09:09 Aspirin 81 Mg Tab.Chew GT 81 mg BREAKFAST TIMOTHY Administration Atorvastatin Calcium 40 mg 07/16/25 22:00 07/18/25 20:25 Atorvastatin Calcium 40 Mg Tablet PO 40 mg QHS TIMOTHY Administration Brimonidine Tartrate 1 drp 07/16/25 10:00 07/19/25 09:09 Brimonidine 0.2% 5ml Bottle OPHTHALMIC 1 drp DAILY TIMOTHY Administration Chlorhexidine Gluconate 1 each 07/17/25 10:00 07/19/25 02:44 Chlorhexidine Gluc 2% Cloth 1 Each Towelette TOPICAL 1 each DAILY TIMOTHY Administration Chlorhexidine Gluconate 15 ml 07/17/25 10:00 07/19/25 09:09 Chlorhexidine 15 Ml PO 15 ml BID TIMOTHY Administration Clopidogrel Bisulfate 75 mg 07/18/25 10:00 07/19/25 09:10 Clopidogrel Bisulfate 75 Mg Tablet PO 75 mg DAILY TIMOTHY Administration Dorzolamide HCl 1 drp 07/16/25 14:00 07/19/25 05:15 Dorzolamide 2% 10ml Bottle OPHTHALMIC 1 drp TID TIMOTHY Administration Enoxaparin Sodium 40 mg 07/18/25 10:00 07/19/25 09:09 Enoxaparin 40 Mg/0.4 Ml Syringe SC 40 mg DAILY TIMOTHY Administration Furosemide 40 mg 07/16/25 07:56 07/19/25 09:09 Furosemide 40 Mg/4 Ml Vial IV 40 mg DAILY TIMOTHY Administration Protocol Glucagon 1 mg 07/16/25 07:56 Glucagon 1 Mg/Ml Syringe IM X1 PRN Hypoglycemia Protocol Hydralazine HCl 5 mg 07/16/25 07:56 07/17/25 16:27 Hydralazine 20 Mg/Ml Vial IV 5 mg Q8H PRN PRN Administration SBP GREATER THAN 180 Protocol Dextrose 250 mls @ 0 mls/hr 07/16/25 07:56 Dextrose 10%-Water IV .Q0M PRN HYPOGLYCEMIA Protocol As Directed Sodium Chloride 250 mls @ 15 mls/hr 07/16/25 07:59 07/19/25 07:27 IV 0 mls/hr .[id number] PRN Infusion Saline Flush Sodium Chloride 250 mls @ 15 mls/hr 07/16/25 07:59 IV .[id number] PRN Additional IVPB Infusion Fentanyl 100 mls @ 5 mls/hr 07/16/25 08:15 07/19/25 11:10 CONT INF 125 mcg/hr UD TIMOTHY 12.5 mls/hr Protocol Titration 50 MCG/HR Pantoprazole Sodium 40 mg/ 100 mls @ 330 mls/hr 07/16/25 08:30 07/19/25 09:39 Sodium Chloride IV Infused Q24 TIMOTHY Infusion Vancomycin IV-PHARMACY TO DOSE 500 mls @ 250 mls/hr 07/16/25 08:29 1 each/ Sodium Chloride IV X1 PRN Rx to Dose Protocol Piperacillin Sod/Tazobactam 50 mls @ 12.5 mls/hr 07/16/25 14:00 07/19/25 09:25 Sod 3.375 gm/ Sodium Chloride IV Infused Q8 TIMOTHY Infusion Dexmedetomidine HCl 400 mcg/ 100 mls @ 6.313 mls/hr 07/17/25 08:15 07/19/25 11:29 Sodium Chloride CONT INF 0.9 mcg/kg/hr .[id number] TIMOTHY 11.4 mls/hr Protocol Titration 0.5 MCG/KG/HR Enteral Nutritional Formula 1,000 mls @ 45 mls/hr 07/17/25 10:05 07/19/25 09:30 Vital Af 1.2 Blake Liquid GT 45 mls/hr .[id number] TIMOTHY Administration Propofol 1,000 mg in 100 mls @ 3.03 mls/hr 07/18/25 01:15 07/19/25 11:27 Diprivan CONT INF 0 mcg/kg/min .Q12H TIMOTHY 0 mls/hr Protocol Titration 10 MCG/KG/MIN Vancomycin HCl 1,250 mg/ 275 mls @ 167 mls/hr 07/18/25 12:00 07/19/25 11:27 Sodium Chloride IV 167 mls/hr Q24H TIMOTHY Administration Insulin Glargine 10 unit 07/19/25 10:00 07/19/25 09:12 Insulin Glargine-Yfgn 100 Unit/Ml Pen SC 10 unit DAILY TIMOTHY Administration Insulin Human Lispro 0 unit 07/17/25 12:00 07/19/25 11:26 Insulin Lispro 100 Unit/Ml Insuln.Pen SC Not Given Q6H [facility] Protocol Methylprednisolone Sodium Succinate 60 mg 07/16/25 10:00 07/19/25 09:11 Methylprednisolone Sod Succ 40 Mg/Ml Vial IV 60 mg BID TIMOTHY Administration Quetiapine Fumarate 25 mg 07/18/25 10:00 07/19/25 09:10 Quetiapine 25 Mg Tablet GT 25 mg BID TIMOTHY Administration Protocol Sodium Chloride 10 - 40 ml 07/16/25 07:59 07/19/25 02:51 0.9% Saline Lock 10 Ml Syringe IV 10 ml UD PRN Administration SALINE FLUSH Sodium Chloride 10 - 40 ml 07/18/25 06:42 0.9% Saline Lock 10 Ml Syringe IV UD PRN SALINE FLUSH Tolterodine Tartrate 2 mg 07/16/25 10:00 07/19/25 09:09 Tolterodine Tartrate 2 Mg Cap.Sa PO 2 mg DAILY TIMOTHY Administration Vancomycin Protocol 1 lab 07/20/25 10:30 Vancomycin Trough/Random Due MC 07/20/25 12:30 DAILY TIMOTHY Lab / Micro Data Attestation: I reviewed the patient's lab results. 07/19/25 02:55 07/19/25 02:55 Labs: Laboratory Results - last 24 hr 07/18/25 10:27: Hepatitis A IgM Ab Negative, Hep Bs Antigen Negative, Hep B CoreIgM Ab Negative, Hepatitis C Ab (EIA) Non Reactive, Hep C Ab Comment Comment 07/18/25 11:53: POC Glucose 192 H 07/18/25 17:39: POC Glucose 187 H 07/18/25 23:31: POC Glucose 190 H 07/19/25 02:55: WBC 8.5, RBC 3.54 L, Hgb 10.2 L, Hct 31.3 L, MCV 88.4, MCH 28.8,MCHC 32.6, RDW Std Deviation 49.1 H, RDW Coeff of Shivam 15.3 H, Plt Count 348, MPV9.5, Immature Gran % (Auto) 0.700, Neut % (Auto) 90.1 H, Lymph % (Auto) 4.7 L, [place] % (Auto) 4.3, Eos % (Auto) 0.1, Baso % (Auto) 0.1, Absolute Neuts (auto) 7.7, Absolute Lymphs (auto) 0.40 L, Nucleated RBC % 0, Sodium 140, Potassium 3.0L, Chloride 106, Carbon Dioxide 20.7 L, Anion Gap 13, BUN 37 H, Creatinine 0.89,Estim Creat Clear Calc 46.22 L, Est GFR (MDRD) Non-Af 69, BUN/Creatinine Ratio 41.1 H, Glucose 199 H, Calcium 7.4 L 07/19/25 05:14: POC Glucose 192 H 07/19/25 11:25: POC Glucose 125 H Micro: Microbiology 07/16/25 03:44 Urine, Catheterized Urine Culture - Final Culture exhibits no growth. 07/16/25 03:36 Sputum, Induced/Lukens Gram Stain - Final 07/16/25 03:36 Sputum, Induced/Lukens Respiratory Culture - Final Mixed normal respiratory renu. No Streptococcus pneumoniae, beta-hemolytic Streptococcus or Staphylococcus aureus isolated. ABG Data ABG results: ABG 07/19/25 05:10 Specimen Type ART Sample Site R Brach pH 7.48 H Bicarbonate Actual 27.0 H Total CO2 28 Base Excess 3 H O2 Saturation 89 L O2 % 30.0 ABG pCO2 36.7 ABG pO2 53 L Respiration Rate 20 O2 Delivery Device Adult Vent Vent Mode AC Tidal Volume 400.0 POC PEEP 5 Imaging Radiology Impression Chest X-Ray 07/19/25 05:56 IMPRESSION: Tubes are as detailed. Improvement in perihilar densities. Reading Location: [facility] Assessment and Plan . Assessment and plan: [facility] Medical Records Department [address] [place] [id number] Progress Note - Aoc Director Intelligence Officer 07/18/25 0739 MR#: [id number] Acct: [id number] Name: ZABRINA HSU Rep #: [id number] : 1955 70 From: Eleazar Valle DO PCP: SEUN Alvarez Status: ADM IN Location: ICU ICU01-1 IMPRESSIONS: 1. Acute respiratory failure with hypoxemia and hypercapnia -multifactorial with components of AE COPD plus acute heart failure/ pulmonary edema - easily supported with mechanical ventilation since - failing SAT/ SBT yesterday with sedation adjusted - will retry SAT/ SBT daily - explained to this may be just a matter of requiring serial efforts to get past - repeat CXR if no progress over next 24 hours 2. History of coronary artery disease status post PCI/history of hypertrophic cardiomyopathy/valvular heart disease - diuresis for possible ASHF 3. Chronic tobacco dependency/depression/glaucoma/hyperlipidemia Complicates care, management, recovery and prognosis. Continue supportive measures as noted above. PT/OT to work with the patient. Continue tube feedingas tolerated. RECOMMENDATIONS: - blood gases reviewed, vent adjusted - contnue sedation - seroquel added - empiric antimicrobials. - bronchodilators and steroids. - diuresis - tube feeding as tolerated. - standard ICU prophylaxis. Reid Murillo MD Critical Care Time: 50 minutes The entirety of this encounter was done via Telemedicine Physical Exam Const General Appearance: patient mechanically ventilated Orientation / Consciousness: lethargic Exam Limitations: physical limitations HEENT Head and Scalp: normal to inspection and normocephalic Mouth: endotracheal tube in place and OG tube in place Eyes PERRL Neck full ROM Chest Chest: symmetrical chest wall rise Resp no use of accessory muscles Effort and Inspection: symmetric chest movement and prolonged expiratory phase Auscultation: diminished lung sounds Cardio regular rate Subjective Subjective Events reviewed. Failed SBT yesterday with evident anxiety and also desaturation. at bedside this AM. 07/19/25 1155 <Electronically signed by Reid Murillo MD> Cosigner Signature (if applicable): CC: ~ Signed [facility] Work Phone: [phone]) 491-387609-27-2025 Radiology Diagnostic study [facility]09-26-2025 Progress note Author Gerard Santos [facility] Note Date/Time July 18, 2025 12:30pm [facility] Medical Records Department [address] [place] [address] Progress Note - Hospitalist 07/18/2507 MR#: [id number] Acct: [id number] Name: DAVEZABRINA L Rep #:[id number] : 1955 70 From: Gerard Santos DO PCP: SEUN Alvarez Status:ADM IN Location: ICU ICU01-1 Reason for Visit Chief Complaint: SOB. Subjective Subjective Did not tolerate SBT. Objective Data Objective Data Vital Signs: Vital Signs Temp Pulse Resp BP Pulse Ox O2 Del Method O2 Flow Rate 37.7 C H 65 20 H 158/64 H 96 Mechanical Ventilator 94 07/18/25 07:00 07/18/25 07:00 07/18/25 07:00 07/18/25 07:00 07/18/25 07:00 07/18/25 07:00 07/17/25 01:00 FiO2 30 07/18/25 07:00 Oxygen Flow Rate (L/min) 94 Oxygen Delivery Method Mechanical Ventilator Weight: 50.2 kg Body Mass Index (BMI) 18.8 Intake & Output: Intake and Output for Last 24 Hours 07/16/25 07/17/25 07/18/25 23:59 23:59 23:59 Intake Total 1199.24 / 1242.49 1917.62 / 1995.00 596.75 / 596.75 Output Total 3125 / 3125 1535 / 1710 375 / 375 Balance -1925.76 / -1882.51 382.62 / 285.00 221.75 / 221.75 Lab / Micro Data 07/18/25 06:30 07/18/25 06:30 Labs: Laboratory Results - last 24 hr 07/17/25 06:30: WBC 8.4, RBC 3.34 L, Hgb 9.8 L, Hct 29.1 L, MCV 87.1 D, MCH 29.3, MCHC 33.7 D, RDW Std Deviation 47.9 H, RDW Coeff of Shivam 15.1 H, Plt [id number], MPV 9.7, Immature Gran % (Auto) 0.400, Neut % (Auto) 84.1 H, Lymph % (Auto)9.1 L, [place] % (Auto) 6.3, Eos % (Auto) 0.0, Baso % (Auto) 0.1, Absolute Neuts (auto) 7.0, Absolute Lymphs (auto) 0.76 L, Nucleated RBC % 0, Sodium 140, Potassium 3.0 L, Chloride 102, Carbon Dioxide 22.9, Anion Gap 15, BUN 29 H, Creatinine 1.30 H, Estim Creat Clear Calc 29.63 L, Est GFR (MDRD) Non-Af 44 L, BUN/Creatinine Ratio 22.6 H, Glucose 149 H, Calcium 8.1, NT pro BNP II 6511 H 07/17/25 11:03: POC Glucose 165 H 07/17/25 18:05: POC Glucose 157 H 07/17/25 23:28: POC Glucose 185 H 07/18/25 05:56: POC Glucose 174 H 07/18/25 06:30: WBC 9.9, RBC 3.76 L, Hgb 11.2 L, Hct 32.7 L, MCV 87.0, MCH 29.8,MCHC 34.3, RDW Std Deviation 48.1 H, RDW Coeff of Shivam 15.3 H, Plt Count 365, MPV9.4, Immature Gran % (Auto) 0.800, Neut % (Auto) 88.5 H, Lymph % (Auto) 5.9 L, [place] % (Auto) 4.7, Eos % (Auto) 0.0, Baso % (Auto) 0.1, Absolute Neuts (auto) 8.8 H, Absolute Lymphs (auto) 0.59 L, Nucleated RBC % 0, Sodium 139, Potassium 3.6, Chloride 103, Carbon Dioxide 23.0, Anion Gap 13, BUN 34 H, Creatinine 1.04,Estim Creat Clear Calc 39.32 L, Est GFR (MDRD) Non-Af 57 L, BUN/Creatinine Ratio32.4 H, Glucose 181 H, Calcium 8.4, Phosphorus 3.6, Magnesium 2.4 H Micro: Microbiology 07/16/25 10:30 Nasal Secretion MRSA (PCR) - Final 07/16/25 09:20 Mucosa - Nasopharyngeal Respiratory Panel (PCR) - Final 07/16/25 08:25 Urine Catheter - Madrigal Legionella Antigen - Final 07/16/25 08:25 Urine Catheter - Madrigal Streptococcus pneumoniae Antigen (M - Final 07/16/25 03:36 Sputum, Induced/Lukens Gram Stain - Final 07/16/25 03:44 Mucosa - Nose SARS-CoV-2, Influenza & RSV (PCR) - Final Physical Exam Const Constitutional Narrative: intubated. sedated. afebrile. HEENT head/scalp atraumatic and moist oral mucous membranes Resp normal respiratory effort and no retractions Resp Narrative: coarse breath sounds bilaterally. Cardio regular rate, regular rhythm, S1 normal heart sound and S2 normal heart sound GI normal to inspection, nondistended, normoactive bowel sounds, soft to palpation,non-tender, non-distended and hepatosplenomegaly Assessment & Plan Assessment/Plan (1) COPD exacerbation: (2) Pneumonia: QUALIFIERS: Laterality: bilateral Lung location: unspecified partof lung Pneumonia type: due to unspecified organism Qualified Code(s): J18.9 -Pneumonia, unspecified organism (3) Acute hypoxic on chronic hypercapnic respiratory failure: (4) CHF exacerbation: QUALIFIERS: Heart failure type: unspecified Qualified Code(s): I50.9 - Heart failure, unspecified (5) Elevated troponin: (6) Hypertensive emergency: (7) Transaminitis: PLAN: Plan Acute Hypoxic and Hypercapnic Respiratory Failure * ABG pH 7.06/ PCO2 75.1 mmHg/ PO2 73 mmHg/ HCO3 21.2 mmHg @ 86% on * ventilator * CCM for vent mgmt * 2/2 to AECOPD, AECHF, possible pneumonia * on empiric abx. * respiratory panel, legionella strep antigens negative AECOPD: * Started on IV methylprednisolone and give scheduled plus prn nebulizers. Acute HFpEF * concern for flash pulmonary edema. * EF 55% on echo from 07/16/2025 * on IV furosemide. Elevated troponin * trending down. No wall motion abnormality on echo. Hypertensive emergency * improved * elevated blood pressure of 257/127 mmHg with concerns for flash pulmonary edema. * On IV furosemide and PRN hydralazine. Hyperglycemia * improved * a1c 6.1 * of 368 mg/dL present on admission suspicious for DM-2 adding to the burden of disease Check HgbA1c to confirm suspicion of DM-2. Check FSBS q. 4 hours and cover with SSI. Chronic conditions: * CAD; s/p stents x 3 RCA + LAD x 1 (2016) on BASA plus prn SL NTG - Continue BASA daily and serialize troponin. 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 * Hyperlipidemia; on atorvastatin - Maintain statin and check Lipid Profile. * OAB; on oxybutynin - Continue present therapy. * Depression; on venlafaxine - Restart this agent after extubation. * Glaucoma; on brimonidine daily and dorzolamide eyes drops TID - Maintain current therapy. DVT/GI prophylaxis - Lovenox 40 mg sq daily plus SCD's. Pantoprazole 40 mg IV daily. Charges/Coding Visit Charges Inpatient E&M: 13514 Subs Hosp L2 07/18/25 1230 <Electronically signed by Gerard Santos DO> Cosigner Signature (if applicable): CC: ~ Signed [facility] Work Phone: 1(758) 695-112909-26-2025 Consult note Author Noelle Yañez [facility] Note Date/Time July 18, 2025 12:13pm [facility] Medical Records Department [address] [facility] [place] [address] Pharmacokinetic/Renal -Consult 07/18/25 1128 MR#: [id number] Acct: [id number] Name: ZABRINA HSU Rep #:[id number] : 1955 70 From: Noelle Yañez PCP: SEUN Alvarez Status:ADM IN Y Location: ICU ICU01-1 Consult Antibiotic Management Pharmacy has been consulted to manage selected antibiotic: Vancomycin Type of Intervention Type of Consult: Follow-up Labs Labs: Sodium 139 mmol/L (133-145) 07/18/25 06:30 Potassium 3.6 mmol/L (3.3-5.1) 07/18/25 06:30 Chloride 103 mmol/L (98-108) 07/18/25 06:30 Carbon Dioxide 23.0 mmol/L (21.0-32.0) 07/18/25 06:30 Anion Gap 13 (5-15) 07/18/25 06:30 BUN 34 mg/dL (4-19) H 07/18/25 06:30 Creatinine 1.04 mg/dL (0.70-1.20) 07/18/25 06:30 Est GFR (MDRD) Non-Af 57 (>60) L 07/18/25 06:30 BUN/Creatinine Ratio 32.4 RATIO (10-20) H 07/18/25 06:30 Glucose 181 mg/dL (70-99) H 07/18/25 06:30 Vancomycin Trough 7.7 ug/mL (5.0-15.0) 07/18/25 10:27 Microbiology Microbiology: Microbiology 07/16/25 03:44 Urine, Catheterized Urine Culture - Final Culture exhibits no growth. 07/16/25 03:36 Sputum, Induced/Lukens Gram Stain - Final 07/16/25 03:36 Sputum, Induced/Lukens Respiratory Culture - Final Mixed normal respiratory renu. No Streptococcus pneumoniae, beta-hemolytic Streptococcus or Staphylococcus aureus isolated. 07/16/25 10:30 Nasal Secretion MRSA (PCR) - Final 07/16/25 09:20 Mucosa - Nasopharyngeal Respiratory Panel (PCR) - Final 07/16/25 08:25 Urine Catheter - Madrigal Legionella Antigen - Final 07/16/25 08:25 Urine Catheter - Madrigal Streptococcus pneumoniae Antigen (M - Final 07/16/25 03:44 Mucosa - Nose SARS-CoV-2, Influenza & RSV (PCR) - Final Pharmacy Plan for Drug Dosing Pharmacy Plan for Drug Dosing: VANCOMYCIN LEVEL RECEIVED Current Vancomycin Dose: 750MG Q24 Number of Doses Received: 2 Vancomycin Level: 7.7MG/DL Hours Since Last Dose: 27 Renal Function: SCr 1.04 mg/dL, CrCl 39 mL/min Renal Function Trend: improved Vancomycin Plan/Comments: 27 hour level is subtherapeutic at 7.7mg/dL (goal 15- 20). Even though the trough is >24 hours, it is unlikely it would've been therapeutic if taken appropriately. Will increase dose to 1250mg Q24 and get a repeat trough prior to 3rd dose of new regimen. Pending Level: 07/20/25 @ 1130 Pharmacy Service will continue to monitor and adjust dosing as required. 07/18/25 1132 <Electronically signed by Noelle Yañez> Date _ Noelle Yañez 07/18/25 1213 <Electronically signed by Eleazar Small> Cosigner Signature (if applicable): Date Eleazar Valle: ~ Signed [facility] Work Phone: [phone] 700-414909-26-2025 Progress note Author Eleazar Valle [facility] Note Date/Time July 18, 2025 9:00am [facility] Medical Records Department [address] [place] [address] Progress Note - Aoc Director Intelligence Officer 07/18/25 0739 MR#: [id number] Acct: [id number] Name: ZABRINA HSU Rep #:[id number] : 1955 70 From: Eleazar Valle DO PCP: SEUN Alvarez Status:ADM IN Location: ICU ICU01-1 Assessment & Plan Assessment/Plan (1) Acute respiratory failure with hypoxia and hypercapnia: PLAN: Plan RECOMMENDATIONS: 1. Continue assist-control mode of mechanical ventilation. Wean FiO2 and PEEP as tolerated. 2. Continue Precedex and fentanyl for sedation. Start scheduled Seroquel today. 3. Continue empiric antimicrobials. 4. Continue scheduled bronchodilators and steroids. 5. Continue diuresis as tolerated by hemodynamics and renal function. 6. Continue tube feeding as tolerated. 7. Continue appropriate ICU prophylaxis. 8. Plan for repeat spontaneous awakening and breathing trial tomorrow morning. IMPRESSIONS: 1. Acute respiratory failure with hypoxemia and hypercapnia Most likely multifactorial in etiology. The patient has a known history of COPDand a longstanding tobacco abuse history, but presented to the emergency department profoundly hypertensive with what I suspect is a component of flash pulmonary edema. The patient was ultimately intubated in the emergency department. She will be continued on assist-control mode of mechanical ventilation, with a goal to wean FiO2 and PEEP to maintain saturations at or above 90%. Given that I cannot definitively rule out infection, we will plan to continue empiric antibiotics, pending culture results. She will be continued onscheduled bronchodilators and IV steroids as well. Diuretics will be continued,as tolerated by hemodynamics and renal function. The patient will be continued on Precedex and fentanyl for sedation. Will plan to start scheduled Seroquel today in hopes that this will also help her in completing a spontaneous breathing trial. 2. History of coronary artery disease status post PCI/history of hypertrophic cardiomyopathy/valvular heart disease Continue diuretics as tolerated by hemodynamics and renal function. 3. Chronic tobacco dependency/depression/glaucoma/hyperlipidemia Complicates care, management, recovery and prognosis. Continue supportive measures as noted above. PT/OT to work with the patient. Continue tube feedingas tolerated. TIME: 33 minutes of critical care time, independent of procedures, was spent addressing the patient's acute respiratory failure with hypoxemia and hypercapnia, review of all data and collaboration with the care team. Subjective Subjective The patient was seen and examined at the bedside this morning. Events from the last 24 hours have been reviewed. The patient currently has a low-grade fever but remains otherwise hemodynamically stable on assist-control mode mechanical ventilation with an FiO2 requirement of 30% and PEEP of 5. The patient failed her spontaneous awakening trial this morning after she developed significant agitation which led to worsening tachypnea and hypoxemia. She is currently documented to be overall net -1.2 L for the hospitalization. She has been tolerant of tube feeding. White blood cell count is normal. Hemoglobin and platelet count are stable. Creatinine is normal. Objective Data Objective Data The patient's most recent lab work, culture data and imaging studies have all been personally reviewed. Surface echocardiogram demonstrated mild concentric LVH with an ejection fraction of 55% and stage I diastolic dysfunction. Sputum,blood and urine cultures are pending. Vital Signs: Vital Signs Temp Pulse Resp BP Pulse Ox O2 Del Method O2 Flow Rate 99.8 F H 65 20 H 158/64 H 96 Mechanical Ventilator 94 07/18/25 07:00 07/18/25 07:00 07/18/25 07:00 07/18/25 07:00 07/18/25 07:00 07/18/25 07:00 07/17/25 01:00 FiO2 30 07/18/25 07:00 Oxygen Flow Rate (L/min) 94 Oxygen Delivery Method Mechanical Ventilator Weight: 110 lb 10.753 oz Body Mass Index (BMI) 18.8 Intake & Output: Intake and Output for Last 24 Hours 07/16/25 07/17/25 07/18/25 23:59 23:59 23:59 Intake Total 1199.24 / 1242.49 1917.62 / 1995.00 596.75 / 596.75 Output Total 3125 / 3125 1535 / 1710 375 / 375 Balance -1925.76 / -1882.51 382.62 / 285.00 221.75 / 221.75 Lab / Micro Data Attestation: I reviewed the patient's lab results. 07/18/25 06:30 07/18/25 06:30 Labs: Laboratory Results - last 24 hr 07/17/25 06:30: WBC 8.4, RBC 3.34 L, Hgb 9.8 L, Hct 29.1 L, MCV 87.1 D, MCH 29.3, MCHC 33.7 D, RDW Std Deviation 47.9 H, RDW Coeff of Shivam 15.1 H, Plt Tutph557, MPV 9.7, Immature Gran % (Auto) 0.400, Neut % (Auto) 84.1 H, Lymph % (Auto)9.1 L, [place] % (Auto) 6.3, Eos % (Auto) 0.0, Baso % (Auto) 0.1, Absolute Neuts (auto) 7.0, Absolute Lymphs (auto) 0.76 L, Nucleated RBC % 0, Sodium 140, Potassium 3.0 L, Chloride 102, Carbon Dioxide 22.9, Anion Gap 15, BUN 29 H, Creatinine 1.30 H, Estim Creat Clear Calc 29.63 L, Est GFR (MDRD) Non-Af 44 L, BUN/Creatinine Ratio 22.6 H, Glucose 149 H, Calcium 8.1, NT pro BNP II 6511 H 07/17/25 11:03: POC Glucose 165 H 07/17/25 18:05: POC Glucose 157 H 07/17/25 23:28: POC Glucose 185 H 07/18/25 05:56: POC Glucose 174 H 07/18/25 06:30: WBC 9.9, RBC 3.76 L, Hgb 11.2 L, Hct 32.7 L, MCV 87.0, MCH 29.8,MCHC 34.3, RDW Std Deviation 48.1 H, RDW Coeff of Shivam 15.3 H, Plt Count 365, MPV9.4, Immature Gran % (Auto) 0.800, Neut % (Auto) 88.5 H, Lymph % (Auto) 5.9 L, [place] % (Auto) 4.7, Eos % (Auto) 0.0, Baso % (Auto) 0.1, Absolute Neuts (auto) 8.8 H, Absolute Lymphs (auto) 0.59 L, Nucleated RBC % 0 Micro: Microbiology 07/16/25 10:30 Nasal Secretion MRSA (PCR) - Final 07/16/25 09:20 Mucosa - Nasopharyngeal Respiratory Panel (PCR) - Final 07/16/25 08:25 Urine Catheter - Madrigal Legionella Antigen - Final 07/16/25 08:25 Urine Catheter - Madrigal Streptococcus pneumoniae Antigen (M - Final 07/16/25 03:36 Sputum, Induced/Lukens Gram Stain - Final 07/16/25 03:44 Mucosa - Nose SARS-CoV-2, Influenza & RSV (PCR) - Final ABG Data ABG results: ABG 07/16/25 09:42 Specimen Type ART Sample Site L Radial pH 7.49 H Bicarbonate Actual 29.1 H Total CO2 30 Base Excess 6 H O2 Saturation 98 O2 % 50.0 ABG pCO2 38.6 ABG pO2 96 Judith Test N/A Respiration Rate 20 O2 Delivery Device Adult Vent Vent Mode AC Tidal Volume 400.0 POC PEEP 5 Radiography Diagnostic Testing: Radiology Impression Echocardiogram 07/16/25 06:31 Interpretation Summary Mild concentric left ventricular hypertrophy. Inferior hypokinesis. Estimated LVEF 55%. Stage I diastolic dysfunction. Moderate posterior mitral valve annular calcification. Calcified chord. Mild mitral valve regurgitation. Mild tricuspid valve insufficiency. Mildly calcified aortic valve leaflets. Aortic valve sclerosis without stenosis. Mild (1+) pulmonic valve insufficiency. Ordering Physician: Jack Zuniga Performed By: Jake Miguel RCS Chest X-Ray 07/16/25 09:05 IMPRESSION: Tubes and lines in position. There interstitial infiltrates in the perihilar region bilaterally and in the left upper lung. Reading Location: [facility] Chest X-Ray 07/17/25 05:10 IMPRESSION: Tubes and lines in position. There are perihilar infiltrates in the right and left, improved. Reading Location: [facility] Physical Exam Const Constitutional Narrative: The patient is intubated, sedated and mechanically ventilated. She is chronically ill in appearance. General Appearance: frail HEENT normocephalic and head/scalp atraumatic Mouth: endotracheal tube in place and OG tube in place Eyes EOMs intact bilaterally, conjunctivae normal and no scleral icterus Neck supple General: trachea midline Chest Chest Narrative: Increased AP diameter. Resp Auscultation: diminished lung sounds; Negative for rales, rhonchi or wheezes Cardio regular rate and regular rhythm GI normal to inspection, nondistended, normoactive bowel sounds Extremity no clubbing, cyanosis or edema Skin no rashes or lesions noted Neuro Sensorium / Orientation: sedated on vent Charges/Coding Procedures Hospitalists Procedures: [id number] Critical Care 1st Hr 07/18/25 0900 <Electronically signed by Eleazar Valle DO> Cosigner Signature (if applicable): CC: ~ Signed [facility] Work Phone: [phone] 139-580909-25-2025 Progress note Author Gerard Santos [facility] Note Date/Time July 17, 2025 12:53pm [facility] Medical Records Department [address] [place] [id number] Progress Note - Hospitalist 07/17/25 07 MR#: [id number] Acct: [id number] Name: ZABRINA HSU Rep #:[id number] 20 : 1955 70 From: Gerard Santos DO PCP: SEUN Alvarez Status:ADM IN Location: ICU ICU01-1 Reason for Visit Chief Complaint: SOB. Subjective Subjective Attempting to pull ETT, so sedation changed from propofol to dexmedetomidine. Objective Data Objective Data Vital Signs: Vital Signs Temp Pulse Resp BP Pulse Ox O2 Del Method O2 Flow Rate 37.1 C 68 20 H 147/58 H 96 Mechanical Ventilator 94 07/17/25 06:00 07/17/25 06:47 07/17/25 06:47 07/17/25 06:00 07/17/25 06:47 07/17/25 06:00 07/17/25 01:00 FiO2 30 07/17/25 06:47 Oxygen Flow Rate (L/min) 94 Oxygen Delivery Method Mechanical Ventilator Weight: 47.287 kg Body Mass Index (BMI) 17.8 Intake & Output: Intake and Output for Last 24 Hours 07/15/25 07/16/25 07/17/25 23:59 23:59 23:59 Intake Total 1199.24 / 1242.49 215.77 / 215.77 Output Total 3125 / 3125 300 / 300 Balance -1925.76 / -1882.51 -84.23 / -84.23 Lab / Micro Data 07/17/25 06:30 07/17/25 06:30 Labs: Laboratory Results - last 24 hr 07/16/25 05:29: Triglycerides 99, Cholesterol 233 H, LDL Cholesterol, Calc 146, VLDL Cholesterol 20, HDL Cholesterol 67, Cholesterol/HDL Ratio 3.49 07/16/25 06:31: Hemoglobin A1c 6.1 H 07/16/25 08:25: Urine Color Straw, Urine Clarity Clear, Urine pH 7.0, Ur Specific [place] 1.005, Urine Protein 30 H, Urine Glucose (UA) Normal, Urine Ketones Negative, Urine Occult Blood 10 H, Urine Nitrite Negative, Urine Bilirubin Negative, Urine Urobilinogen Normal, Ur Leukocyte Esterase Negative, Urine RBC 0 SEEN, Urine WBC 0 SEEN, Ur Squamous Epith Cells 0 SEEN, Urine Bacteria 0 SEEN, Urine Mucus 0 SEEN 07/16/25 08:50: Lactic Acid 1.4, Troponin T Hi Sens 4Hr 93 H* 07/16/25 11:24: POC Glucose 152 H 07/16/25 13:18: POC Glucose 145 H 07/16/25 16:10: POC Glucose 124 H 07/16/25 21:45: POC Glucose 135 H 07/17/25 00:51: POC Glucose 153 H 07/17/25 06:21: POC Glucose 156 H Micro: Microbiology 07/16/25 10:30 Nasal Secretion MRSA (PCR) - Final 07/16/25 09:20 Mucosa - Nasopharyngeal Respiratory Panel (PCR) - Final 07/16/25 08:25 Urine Catheter - Madrigal Legionella Antigen - Final 07/16/25 08:25 Urine Catheter - Madrigal Streptococcus pneumoniae Antigen (M - Final 07/16/25 03:36 Sputum, Induced/Lukens Gram Stain - Final 07/16/25 03:44 Mucosa - Nose SARS-CoV-2, Influenza & RSV (PCR) - Final ABG Data ABG results: ABG 07/16/25 09:42 Specimen Type ART Sample Site L Radial pH 7.49 H Bicarbonate Actual 29.1 H Total CO2 30 Base Excess 6 H O2 Saturation 98 O2 % 50.0 ABG pCO2 38.6 ABG pO2 96 Judith Test N/A Respiration Rate 20 O2 Delivery Device Adult Vent Vent Mode AC Tidal Volume 400.0 POC PEEP 5 Radiography Diagnostic Testing: Radiology Impression Echocardiogram 07/16/25 06:31 Interpretation Summary Mild concentric left ventricular hypertrophy. Inferior hypokinesis. Estimated LVEF 55%. Stage I diastolic dysfunction. Moderate posterior mitral valve annular calcification. Calcified chord. Mild mitral valve regurgitation. Mild tricuspid valve insufficiency. Mildly calcified aortic valve leaflets. Aortic valve sclerosis without stenosis. Mild (1+) pulmonic valve insufficiency. Ordering Physician: Jack Zuniga Performed By: Jake Miguel RCS Abdomen/Pelvis CT 07/16/25 06:40 IMPRESSION: No suspicious solid organ abnormality, there is atrophy of the right kidney compared to the left but no obstructive uropathy or suspicious solid renal lesion. Retained stool throughout the colon which may be impacted No free intraperitoneal fluid, air, or suspicious adenopathy NG tube tip in the body of the stomach Diffuse atherosclerosis Degenerative bony changes Reading Location: [id number] Chest X-Ray 07/16/25 09:05 IMPRESSION: Tubes and lines in position. There interstitial infiltrates in the perihilar region bilaterally and in the left upper lung. Reading Location: [facility] Chest X-Ray 07/17/25 05:10 IMPRESSION: Tubes and lines in position. There are perihilar infiltrates in the right and left, improved. Reading Location: [facility] Physical Exam Const Constitutional Narrative: agitated but sedated. afebrile. HEENT head/scalp atraumatic and moist oral mucous membranes Resp normal respiratory effort, no retractions, no use of accessory muscles and clearto auscultation bilaterally Cardio regular rate, regular rhythm, S1 normal heart sound and S2 normal heart sound GI normal to inspection, nondistended, normoactive bowel sounds, soft to palpation,non-tender and non-distended Extremity normal to inspection Assessment & Plan Assessment/Plan (1) COPD exacerbation: (2) Pneumonia: QUALIFIERS: Laterality: bilateral Lung location: unspecified partof lung Pneumonia type: due to unspecified organism Qualified Code(s): J18.9 -Pneumonia, unspecified organism (3) Acute hypoxic on chronic hypercapnic respiratory failure: (4) CHF exacerbation: QUALIFIERS: Heart failure type: unspecified Qualified Code(s): I50.9 - Heart failure, unspecified (5) Elevated troponin: (6) Hypertensive emergency: (7) Transaminitis: PLAN: Plan Acute Hypoxic and Hypercapnic Respiratory Failure * ABG pH 7.06/ PCO2 75.1 mmHg/ PO2 73 mmHg/ HCO3 21.2 mmHg @ 86% on * ventilator * CCM for vent mgmt * 2/2 to AECOPD, AECHF, possible pneumonia * on empiric abx. * respiratory panel, legionella strep antigens negative AECOPD: * Start IV methylprednisolone and give scheduled plus prn nebulizers. Acute HFpEF * concern for flash pulmonary edema. * EF 55% on echo from 07/16/2025 * on IV furosemide. Elevated troponin * trending down. No wall motion abnormality on echo. Hypertensive emergency * improved * elevated blood pressure of 257/127 mmHg with concerns for flash pulmonary edema. * On IV furosemide and PRN hydralazine. Hyperglycemia * improved * a1c 6.1 * of 368 mg/dL present on admission suspicious for DM-2 adding to the burden of disease Check HgbA1c to confirm suspicion of DM-2. Check FSBS q. 4 hours and cover with SSI. Chronic conditions: * CAD; s/p stents x 3 RCA + LAD x 1 (2016) on BASA plus prn SL NTG - Continue BASA daily and serialize troponin. 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 * Hyperlipidemia; on atorvastatin - Maintain statin and check Lipid Profile. * OAB; on oxybutynin - Continue present therapy. * Depression; on venlafaxine - Restart this agent after extubation. * Glaucoma; on brimonidine daily and dorzolamide eyes drops TID - Maintain current therapy. DVT/GI prophylaxis - Lovenox 40 mg sq daily plus SCD's. Pantoprazole 40 mg IV daily. DW family at bedside. Charges/Coding Visit Charges Inpatient E&M: 82112 Subs Hosp L2 07/17/25 1253 <Electronically signed by Gerard Santos DO> Cosigner Signature (if applicable): CC: ~ Signed [facility] Work Phone: [phone] 869-233409-25-2025 Progress note Author Eleazar Valle [facility] Note Date/Time July 17, 2025 10:00am [facility] Medical Records Department [address] [place] [address] Progress Note - Aoc Director Intelligence Officer 07/17/25 0737 MR#: [id number] Acct: [id number] Name: ZABRINA HSU Rep #:[id number] : 1955 70 From: Eleazar Valle DO PCP: SEUN Alvarez Status:ADM IN Location: ICU ICU01-1 Assessment & Plan Assessment/Plan (1) Acute respiratory failure with hypoxia and hypercapnia: PLAN: Plan RECOMMENDATIONS: 1. Continue assist-control mode of mechanical ventilation. Wean FiO2 and PEEP as tolerated. 2. Transition from propofol to Precedex to help facilitate weaning from invasive mechanical ventilatory support. 3. Continue empiric antimicrobials. 4. Continue scheduled bronchodilators and steroids. 5. Continue diuresis as tolerated by hemodynamics and renal function. 6. Okay to initiate tube feeding today for nutritional support. 7. Continue appropriate ICU prophylaxis. IMPRESSIONS: 1. Acute respiratory failure with hypoxemia and hypercapnia Most likely multifactorial in etiology. The patient has a known history of COPDand a longstanding tobacco abuse history, but presented to the emergency department profoundly hypertensive with what I suspect is a component of flash pulmonary edema. The patient was ultimately intubated in the emergency department. She will be continued on assist-control mode of mechanical ventilation, with a goal to wean FiO2 and PEEP to maintain saturations at or above 90%. Given that I cannot definitively rule out infection, we will plan to continue empiric antibiotics, pending culture results. She will be continued onscheduled bronchodilators and IV steroids as well. Diuretics will be continued,as tolerated by hemodynamics and renal function. The patient will be transitionfrom propofol to Precedex to help facilitate weaning from invasive mechanical ventilatory support. Plan to repeat spontaneous awakening and breathing trial tomorrow morning. 2. History of coronary artery disease status post PCI/history of hypertrophic cardiomyopathy/valvular heart disease Continue diuretics as tolerated by hemodynamics and renal function. 3. Chronic tobacco dependency/depression/glaucoma/hyperlipidemia Complicates care, management, recovery and prognosis. Continue supportive measures as noted above. PT/OT to work with the patient. Okay to initiate tubefeeding today from my perspective. TIME: 34 minutes of critical care time, independent of procedures, was spent addressing the patient's acute respiratory failure with hypoxemia and hypercapnia, review of all data and collaboration with the care team. Subjective Subjective The patient was seen and examined at the bedside this morning. Events from the last 24 hours have been reviewed. The patient is currently afebrile, hemodynamically stable and maintaining appropriate oxygen saturations on assist-control mode of mechanical ventilation with an FiO2 requirement of 30% and PEEP of 5. The patient failed her spontaneous awakening trial this morning after shebecame agitated with weaning of sedation. The patient was documented to be overall net -1.6 L for the hospitalization. Objective Data Objective Data The patient's most recent lab work, culture data and imaging studies have all been personally reviewed. Surface echocardiogram demonstrated mild concentric LVH with an ejection fraction of 55% and stage I diastolic dysfunction. Sputum,blood and urine cultures are pending. Vital Signs: Vital Signs Temp Pulse Resp BP Pulse Ox O2 Del Method O2 Flow Rate 98.7 F 67 20 H 157/63 H 95 Mechanical Ventilator 94 07/17/25 07:00 07/17/25 07:00 07/17/25 07:00 07/17/25 07:00 07/17/25 07:00 07/17/25 07:00 07/17/25 01:00 FiO2 45 07/17/25 07:00 Oxygen Flow Rate (L/min) 94 Oxygen Delivery Method Mechanical Ventilator Weight: 104 lb 4 oz Body Mass Index (BMI) 17.8 Intake & Output: Intake and Output for Last 24 Hours 07/15/25 07/16/25 07/17/25 23:59 23:59 23:59 Intake Total 1199.24 / 1242.49 236.27 / 236.27 Output Total 3125 / 3125 300 / 300 Balance -1925.76 / -1882.51 -63.73 / -63.73 Lab / Micro Data Attestation: I reviewed the patient's lab results. 07/16/25 03:20 07/17/25 06:30 Labs: Laboratory Results - last 24 hr 07/16/25 05:29: Triglycerides 99, Cholesterol 233 H, LDL Cholesterol, Calc 146, VLDL Cholesterol 20, HDL Cholesterol 67, Cholesterol/HDL Ratio 3.49 07/16/25 06:31: Hemoglobin A1c 6.1 H 07/16/25 08:25: Urine Color Straw, Urine Clarity Clear, Urine pH 7.0, Ur Specific [place] 1.005, Urine Protein 30 H, Urine Glucose (UA) Normal, Urine Ketones Negative, Urine Occult Blood 10 H, Urine Nitrite Negative, Urine Bilirubin Negative, Urine Urobilinogen Normal, Ur Leukocyte Esterase Negative, Urine RBC 0 SEEN, Urine WBC 0 SEEN, Ur Squamous Epith Cells 0 SEEN, Urine Bacteria 0 SEEN, Urine Mucus 0 SEEN 07/16/25 08:50: Lactic Acid 1.4, Troponin T Hi Sens 4Hr 93 H* 07/16/25 11:24: POC Glucose 152 H 07/16/25 13:18: POC Glucose 145 H 07/16/25 16:10: POC Glucose 124 H 07/16/25 21:45: POC Glucose 135 H 07/17/25 00:51: POC Glucose 153 H 07/17/25 06:21: POC Glucose 156 H Micro: Microbiology 07/16/25 10:30 Nasal Secretion MRSA (PCR) - Final 07/16/25 09:20 Mucosa - Nasopharyngeal Respiratory Panel (PCR) - Final 07/16/25 08:25 Urine Catheter - Madrigal Legionella Antigen - Final 07/16/25 08:25 Urine Catheter - Madrigal Streptococcus pneumoniae Antigen (M - Final 07/16/25 03:36 Sputum, Induced/Lukens Gram Stain - Final 07/16/25 03:44 Mucosa - Nose SARS-CoV-2, Influenza & RSV (PCR) - Final ABG Data ABG results: ABG 07/16/25 09:42 Specimen Type ART Sample Site L Radial pH 7.49 H Bicarbonate Actual 29.1 H Total CO2 30 Base Excess 6 H O2 Saturation 98 O2 % 50.0 ABG pCO2 38.6 ABG pO2 96 Judith Test N/A Respiration Rate 20 O2 Delivery Device Adult Vent Vent Mode AC Tidal Volume 400.0 POC PEEP 5 Radiography Diagnostic Testing: Radiology Impression Echocardiogram 07/16/25 06:31 Interpretation Summary Mild concentric left ventricular hypertrophy. Inferior hypokinesis. Estimated LVEF 55%. Stage I diastolic dysfunction. Moderate posterior mitral valve annular calcification. Calcified chord. Mild mitral valve regurgitation. Mild tricuspid valve insufficiency. Mildly calcified aortic valve leaflets. Aortic valve sclerosis without stenosis. Mild (1+) pulmonic valve insufficiency. Ordering Physician: Jack Zuniga Performed By: Jake Miguel RCS Chest X-Ray 07/16/25 09:05 IMPRESSION: Tubes and lines in position. There interstitial infiltrates in the perihilar region bilaterally and in the left upper lung. Reading Location: [facility] Chest X-Ray 07/17/25 05:10 IMPRESSION: Tubes and lines in position. There are perihilar infiltrates in the right and left, improved. Reading Location: [facility] Physical Exam Const Constitutional Narrative: The patient is intubated, sedated and mechanically ventilated. She is chronically ill in appearance. General Appearance: frail HEENT normocephalic and head/scalp atraumatic Mouth: endotracheal tube in place and OG tube in place Eyes EOMs intact bilaterally, conjunctivae normal and no scleral icterus Neck supple General: trachea midline Chest Chest Narrative: Increased AP diameter. Resp Auscultation: diminished lung sounds; Negative for rales, rhonchi or wheezes Cardio regular rate and regular rhythm GI normal to inspection, nondistended, normoactive bowel sounds Extremity no clubbing, cyanosis or edema Skin no rashes or lesions noted Neuro Sensorium / Orientation: sedated on vent Charges/Coding Procedures Hospitalists Procedures: [id number] Critical Care 1st Hr 07/17/25 1000 <Electronically signed by Eleazar Valle DO> Cosigner Signature (if applicable): CC: ~ Signed [facility] Work Phone: [phone] 564-728109-25-2025 Radiology Diagnostic study [facility]09-24-2025 History and physical note Author Jack Haile [facility] Note Date/Time July 16, 2025 7:05pm [facility] Medical Records Department [address] [place] [address] H&P Exam - Hospitalist 07/16/25 0413 MR#: [id number] Acct: [id number] Name: ZABRINA HSU Rep #:[id number] 16 : 1955 70 From: Jack Deleon DO PCP: SEUN Alvarez Status:ADM IN Location: ICU ICU01-1 HPI - General General Date of Service: 07/16/25 Chief Complaint: SOB. HPI Narrative ZABRINA HSU, is a 70 F with a past medical history of essential hypertension; on lisinopril, hyperlipidemia; on atorvastatin, chronic tobacco abuse x ~46 years, CAD; s/p stents x 3 RCA + LAD x 1 (2016) on BASA plus prn SL NTG, history of apical variant hypertrophic cardiomyopathy per MRI (2017), history of nonrheumatic mitral regurgitation, history of myocardial fibrosis, history of inducible AVNRT, tobacco abuse; with subsequent COPD, pulmonary hypertension, OAB; on oxybutynin, depression; on venlafaxine, glaucoma; on brimonidine daily and dorzolamide eyes drops TID, history of hysterectomy and [facility]who [facility]. Ms. Hsu was noted to be in respiratory distress upon arrival to the ER causing her to beimmediately started ion BiPAP prior to being intubated so information was gathered from chart, medical staff and computer. In the ER she was noted to have a highly elevated blood pressure of 257/127 mmHg present on admission consistent with Hypertensive Emergency complicated by an elevated NT pro-BNP II of 7,963 pg/mL present on admission due to AE of CHF compounded by clinical evidence of AE COPD with Acute Hypoxic and Hypercapnic Respiratory Failure evidenced by ABG pH 7.06/ PCO2 75.1 mmHg/ PO2 73 mmHg/ HCO3 21.2 mmHg @ 86% on AC vent 400 with 5 PEEP on 50% FiO2 along with Leukocytosis of 13.1K with Left-shift of 2.9% and Lactic Acidosis of 3.2 mmol/L concerning for Sepsis in addition to Transaminitis; AST 158 U/L, ALT 118 U/L and Alkaline Phosphatase 163U/L plus Hyperglycemia of 368 mg/dL present on admission. She was then admittedto the ICU for ongoing care for a stay that is expected to extend beyond 2 midnights. [facility] Medical History 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 Non-rheumatic mitral regurgitation Depression Anxiety Pulmonary hypertension Essential hypertension Pure hypercholesterolemia Atherosclerotic heart disease of [place] coronary artery without angina pectoris Home Medications ?Medication ?Instructions ?Recorded ?Last Taken ?Type aspirin 81 mg tablet,delayed 81 mg PO DAILY 07/08/19 U nknown History release (Adult Low Dose Aspirin) atorvastatin 40 mg tablet 40 mg PO QHS PRN 07/08/19 Un known History nitroglycerin 0.4 mg sublingual 0.4 mg sublingual Q5-1 5M PRN chest 07/08/19 Unknown History tablet pain oxybutynin chloride 10 mg 10 mg PO DAILY 07/08/19 Unkn own History tablet,extended release 24 hr venlafaxine 75 mg tablet 75 mg PO BID 07/08/19 Unknow n History albuterol sulfate 90 mcg/actuation 2 puff inhalation Q 4H PRN 12/23/20 Unknown Rx aerosol inhaler (Ventolin HFA) shortness of breath or wheezing #8.5 grams brimonidine 0.2 % eye drops ml ophthalmic (eye) Unknown History dorzolamide 2 % eye drops 1 drp ophthalmic (eye) TID 0 06/16/21 Unknown History lisinopril 20 mg tablet 20 mg PO DAILY #90 tabs 05/24 03/12 Unknown Rx Allergy/AdvReac Type Severity Reaction Status Date / Time No Known Allergies Allergy Unverified 06/16/21 14:41 Family History Mother Diabetes Surgical History History of coronary artery stent placement (01/02/17) History of hysterectomy Social History Smoking Status: Current every day smoker tobacco type: cigarettes Tobacco: How many years used: 46 second hand exposure: Yes alcohol intake: never substance use type: does not use caffeine: Yes Type: coffee ROS ROS Narrative ROS was not possible with patient intubated and sedated. Vital Signs Vital Signs Vital Signs: 07/16/25 03:07 07/16/25 03:19 07/16/25 03:19 Temperature 97 F L Temperature Source Temporal Pulse Rate 91 95 Respiratory Rate 30 H 20 H Respiratory Effort Labored Accessory Muscle Use Respiratory Depth Deep Respiratory Pattern Normal Blood Pressure 257/98 H Blood Pressure Mean 151 Pulse Ox 96 95 Oxygen Delivery Method Nasal Cannula Oxygen Flow Rate (L/min) 15 Fraction of Inspired Oxygen (FIO2) 75 07/16/25 03:52 07/16/25 03:53 07/16/25 03:55 Temperature 96.6 F L Temperature Source Core Pulse Rate 101 H Respiratory Rate 17 Respiratory Effort Mechanically Ventilated Respiratory Depth Respiratory Pattern Blood Pressure 247/111 H Blood Pressure Mean 156 Pulse Ox 95 Oxygen Delivery Method Mechanical Ventilator Mechanical Ventilator Oxygen Flow Rate (L/min) Fraction of Inspired Oxygen (FIO2) 75 07/16/25 04:00 07/16/25 04:03 Temperature Temperature Source Pulse Rate 95 111 H Respiratory Rate 20 H Respiratory Effort Respiratory Depth Respiratory Pattern Normal Blood Pressure 257/127 H Blood Pressure Mean Pulse Ox Oxygen Delivery Method Oxygen Flow Rate (L/min) Fraction of Inspired Oxygen (FIO2) Weight Weight: 117 lb 15.157 oz Body Mass Index (BMI) 20.2 Physical Exam Const Constitutional Narrative: Patient is intubated and sedated on mechanical ventilator. HEENT normocephalic and head/scalp atraumatic Eyes PERRL, EOMs intact bilaterally and conjunctivae normal Neck no lymphadenopathy and supple Resp Resp Narrative: Diffuse wheezing with air movement throughout. Cardio regular rate and regular rhythm GI normal to inspection, nondistended, normoactive bowel sounds, soft to palpation,non-tender and non-distended Extremity normal to inspection, full ROM and no clubbing, cyanosis or edema Skin Skin Narrative: Patient has no evidence of rash, abscess, wounds or jaundice. Neuro Neuro Narrative: Patient is intubated and sedated on mechanical ventilator. Results Medical Records Data Attestation: I reviewed the patient's medical records Lab / Micro Data Attestation: I reviewed the patient's lab results. 07/16/25 03:20 07/16/25 03:20 Labs: Laboratory Results - last 24 hr 07/16/25 03:20: WBC 13.1 H, RBC 3.95 L, Hgb 11.6 L, Hct 37.9, MCV 95.9, MCH 29.4, MCHC 30.6 L, RDW Std Deviation 51.3 H, RDW Coeff of Shivam 14.6, Plt Count 411, MPV 9.7, Immature Gran % (Auto) 2.900 H, Neut % (Auto) 30.6 L, Lymph % (Auto) 56.5 H, [place] % (Auto) 6.4, Eos % (Auto) 2.7, Baso % (Auto) 0.9, Absolute Neuts (auto) 4.0, Absolute Lymphs (auto) 7.43 H, Nucleated RBC % 0, Sodium 137, Potassium 3.7, Chloride 100, Carbon Dioxide 21.7, Anion Gap 15, BUN 17, Creatinine 1.27 H, Estim Creat Clear Calc 34.32 L, Est GFR (MDRD) Non-Af 45 L, BUN/Creatinine Ratio 13.1, Glucose 368 H, Calcium 8.5, Total Bilirubin 0.34, FWB232 H, ALT 118 H, Alkaline Phosphatase 163 H, Total Creatine Kinase 126, NT pro BNP II 7963 H, Total Protein 6.9, Albumin 3.8, Globulin 3.1, Albumin/Globulin Ratio 1.2, Triglycerides 67 ABG Data ABG results: ABG 07/16/25 03:58 Specimen Type ART Sample Site L Radial pH 7.06 L* Bicarbonate Actual 21.2 L Total CO2 24 Base Excess -9 L O2 Saturation 86 L O2 % 50.0 ABG pCO2 75.1 H* ABG pO2 73 L Judith Test N/A Respiration Rate 20 O2 Delivery Device Adult Vent Vent Mode AC Tidal Volume 400.0 POC PEEP 5 Crit Call To/Read Back Yes Blood Gas Notified Whom Dr Sharif Blood Gas Notified Time 04:00:19 Imaging [facility] Imaging Services [address] [place], [place] [address] Brain/Head without Contrast MR#: [id number] Acct: [id number] Name: ZABRINA HSU Rep #: [id number] : 1955 F 70 From: Shimon Santos MD PCP: SEUN Alvarez Status: REG ER Study: Brain/Head without Contrast Date of Exam: 07/16/25 Exam# [id number] Ordering Dr: Bernardo Sharif DO EXAM: NONCONTRAST CT SCAN OF THE HEAD CLINICAL HISTORY: AMS COMPARISON: None TECHNIQUE: Serial axial series through the head were obtained without contrast. 2-D coronaland sagittal reformats were then obtained. DLP = 745 mGy-cm FINDINGS: Brain: There is no acute large territorial infarct, intracranial hemorrhage, midline shift or mass effect. There are atherosclerotic vascular calcifications involving the bilateral carotid siphons.The sella and pineal gland regions appear unremarkable. There is low-density in the deep white matter on the right and left, and in the right occipital lobe consistent with chronic ischemic change. There is no evidence of cerebellar tonsillar herniation. Ventricles: There is no acute hydrocephalus. Basilar cisterns are patent. Paranasal sinuses: Well-aerated Mastoid air cells: Well-aerated. Calvarium: The bony calvarium is intact. Orbits: The bilateral globes are symmetric, without retrobulbar compressive masslesion or hemorrhage. CT/Brain/Head without Contrast IMPRESSION: There is low-density in the deep white matter on the right and left, and in the right occipital lobe consistent with chronic ischemic change. No acute intracranial pathology. Consider MRI with diffusion scan, or CT perfusion to exclude an acute component. Reading Location: [facility] CC: SEUN zOuna; Dr. Bernardo Sharif DO ~ Neuro Intensivist Physician: Signed ----- [facility] Imaging Services [address] [place] [id number] CTA Chest W/WO Contrast MR#: [id number] Acct: [id number] Name: ZABRINA HSU Rep #: [id number] : 1955 F 70 From: Aleksandr Levine MD PCP: SEUN Alvarez Status: REG ER Study: CTA Chest W/WO Contrast Date of Exam: 07/16/25 Exam# [id number] Ordering Dr: Bernardo Sharif DO PROCEDURE: CTA CHEST W/WO CONTRAST 07/16/2025 REASON FOR EXAM: HYPOXIA TECHNIQUE: Procedure Code: [id number] Modality: CT Procedure: CTA CHEST W/WO CONTRAST Multiplanar Sagittal and Coronal images were obtained. CONTRAST: Isovue 370 VOLUME: 100 mL One or more dose reduction techniques were used (e.g., Automated exposure control, adjustment of the mA and/or kV according to patient size, use of iterative reconstruction technique). RADIATION DOSE SUMMARY: CTDlvol: 25.23 mGy DLP: 345.21 mGycm COMPARISON: No recent studies, previous chest CT from 2020 # of known CTs in the past 12 months: 0 # of known Cardiac Nuclear Medicine Studies in the past 12 months: 0 FINDINGS: Patient is intubated, tip of the ET tube is in the right mainstem bronchus and should be retracted 3-4 cm. NG tube tip is in the body of the stomach The pulmonary arteries enhance avidly. No evidence of low-density filling defect to suspect PE. Peripheral calcifications are noted in the thoracic aorta no demonstrated aneurysm I can not evaluate for dissection due to lack of IV contrast within the majority of the thoracic aorta. There are calcified coronary vessels. Lung windows show underlying emphysema with superimposed interstitial edema and chronic interstitial changes with free-flowing bilateral pleural effusions, and bibasilar atelectasis with diffuse peribronchial thickening. Findings suggest a combination of CHF and superimposed bronchitis and pneumonitis. The soft tissue windows show a normal-appearing thyroid gland. No suspicious axillary, mediastinal or perihilar adenopathy. Bony structures show degenerative change. Limited cuts through the upper abdomen show diffuse atherosclerotic calcifications and nonobstructing bilateral renal stones. CT/CTA Chest W/WO Contrast IMPRESSION: No demonstrated PE, or thoracic aortic aneurysm Underlying emphysema with superimposed CHF, pneumonitis, bronchitis, free- flowing bilateral pleural effusions and bibasilar atelectasis ETT tip is in the right mainstem bronchus and should be retracted 3-4 cm, NG tube tip in satisfactory position No suspicious adenopathy Degenerative bony changes [place] Alert: ET tube tip in the SADAF The critical findings in the findings and impression above were relayed directlyby me by telephone to Bernardo Sharif on 07/16/2025 at 6:56 am with readback verification. Reading Location: [id number] CC: SEUN Ozuna; Dr. Bernardo Sharif DO ~ Neuro Intensivist Physician: Signed Assessment & Plan Assessment/Plan (1) COPD exacerbation: (2) Pneumonia: QUALIFIERS: Pneumonia type: due to unspecified organism Laterality: bilateral Lung location: unspecified part of lung Qualified Code(s): J18.9 - Pneumonia, unspecified organism (3) Acute hypoxic on chronic hypercapnic respiratory failure: (4) CHF exacerbation: QUALIFIERS: Heart failure type: unspecified Qualified Code(s): I50.9 - Heart failure, unspecified (5) Elevated troponin: (6) Hypertensive emergency: (7) Sepsis: QUALIFIERS: Acute respiratory failure type: with hypercapnia Sepsis acute organ dysfunction status: with acute organ dysfunction Sepsis type:sepsis due to unspecified organism Severe sepsis acute organ dysfunction type: acute respiratory failure Severe sepsis shock status: without septic shock Qualified Code(s): A41.9 - Sepsis, unspecified organism; R65.20 - Severe sepsis without septic shock; J96.02 - Acute respiratory failure with hypercapnia (8) Leukocytosis: QUALIFIERS: Leukocytosis type: bandemia Qualified Code(s): D72.825 - Bandemia (9) Lactic acidosis: (10) Transaminitis: (11) Hyperglycemia: PLAN: Plan 1. AE COPD with Acute Hypoxic and Hypercapnic Respiratory Failure evidenced by ABG pH 7.06/ PCO2 75.1 mmHg/ PO2 73 mmHg/ HCO3 21.2 mmHg @ 86% on AC vent 400 with 5 PEEP on 50% FiO2 in the setting of previously known Chronic Tobacco Abuseand Pulmonary Hypertension - Admit to ICU. Start IV methylprednisolone and givescheduled plus prn nebulizers. Wean ventilator as tolerated. Check viral respiratory panel. Tobacco Cessation will be strongly encouraged after extubation with Nicotine patch offered to control cravings. CTA of chest could not be done immediately due to patient instability and is pending at this time to confirm suspicion of Pneumonia with ER physician notified to retract ET tube. Finally, we will consult pulmonary/critical care to this patient on rounds in the AM for further recommendations with help appreciated in advance. 2. Elevated NT pro-BNP II of 7,963 pg/mL with elevated Troponin of 114 ng/L both present on admission due to AE of CHF of uncertain type complicating #1 - Give furosemide IV daily plus supplemental KCl and magnesium. Check echocardiogram to evaluate LVEF. Increased troponin suspected to be due to acute cardiac strain arising from #1 & #3. 3. Highly elevated blood pressure of 257/127 mmHg present on admission consistent with Hypertensive Emergency due to #1 & #2 in the setting of previously known Essential Hypertension - Patient will be treated with IV furosemide for #2 in addition to hydralazine IV prn for systolic blood pressure > 180mmHg. 4. Leukocytosis of 13.1K with Left-shift of 2.9% and Lactic Acidosis of 3.2 mmol/L concerning for Sepsis compounding #1 - #3 - Start empiric IV vancomycin and IV piperacillin-tazobactam and await culture & sensitivity data. Viral respiratory panel pending for #1. Patient did not receive Sepsis fluid bolus due to #2. 5. Transaminitis; AST 158 U/L, ALT 118 U/L and Alkaline Phosphatase 163 U/L present on admission adding to the medical complexity of #1 - #4 - Check CT scanof abdomen and pelvis to evaluate for liver pathology. Check hepatitis profile. 6. Hyperglycemia of 368 mg/dL present on admission suspicious for DM-2 adding to the burden of disease outlined from #1 - #5 - Check HgbA1c to confirm suspicion of DM-2. Check FSBS q. 4 hours and cover with SSI. 7. CAD; s/p stents x 3 RCA + LAD x 1 (2017) on BASA plus prn SL NTG - Continue BASA daily and serialize troponin. 8. History of apical variant hypertrophic cardiomyopathy per MRI (2017) - Noted. 9. History of myocardial fibrosis - Noted. 10. History of nonrheumatic mitral regurgitation - Check echocardiogram this admission as outlined in #2. 11. History of inducible AVNRT - Noted with no evidence of recurrence at this time. 12. Hyperlipidemia; on atorvastatin - Maintain statin and check Lipid Profile. 13. OAB; on oxybutynin - Continue present therapy. 14. Depression; on venlafaxine - Restart this agent after extubation. 15. Glaucoma; on brimonidine daily and dorzolamide eyes drops TID - Maintain current therapy. 16. History of hysterectomy - Noted. 17. OA -Stable. 18. DVT/GI prophylaxis - Lovenox 40 mg sq daily plus SCD's. Pantoprazole 40 mgIV daily. Total time: Approximately (but not less than) 75 minutes. Sepsis Attestation Sepsis Alert: Yes Sepsis Attestation: Agree w/Sepsis Date exam was performed: 07/16/25 Time exam was performed: 06:40 Possible Source of Sepsis: Pulmonary Sepsis Organ Dysfunction Criteria Present: Acute Respiratory Failure (New need for BiPAP/CPAP or MV), Lactic Acid > 2 mmol/L and New/Unexplained change in mental status Fluid Resuscitation Fluid resuscitation indicated?: Yes Fluid Resuscitation ordered: Lesser volume fluid bolus ordered Amount of fluid ordered: 0 Reason for lesser fluid bolus:: Concern for fluid overload and Heart failure Sepsis Note Date exam was performed: 07/16/25 Time exam was performed: 07:00 Sepsis Attestation: Sepsis re-evaluation was performed Response to fluids: Fluid responsive hypotension Charges/Coding Visit Charges Inpatient E&M: 71447 Init Hosp L3 07/16/251904 <Electronically signed by Jack Zuniga DO> Cosigner Signature (if applicable): CC: SEUN Ozuna; Dr. Jack Zuniga DO~ Signed [facility] Work Phone: [phone] Progress note Author Gerard Santos [facility] Note Date/Time July 16, 2025 12:12pm [facility] Medical Records Department [address] [place] [address] Progress Note - Hospitalist 07/16/25 1200 MR#: [id number] Acct: [id number] Name: ZABRINA HSU Rep #:[id number] : 1955 70 From: Gerard Santos DO PCP: SEUN Alvarez Status:ADM IN Location: ICU ICU01-1 Reason for Visit Chief Complaint: SOB. Subjective Subjective Still on the vent. Veresed changed to fentanyl and BP has improved. Objective Data Objective Data Vital Signs: Vital Signs Temp Pulse Resp BP Pulse Ox O2 Del Method O2 Flow Rate 37.2 C 60 20 H 139/70 H 96 Mechanical Ventilator 15 07/16/25 09:00 07/16/25 11:15 07/16/25 11:15 07/16/25 10:00 07/16/25 11:15 07/16/25 10:00 07/16/25 03:10 FiO2 40 07/16/25 11:15 Oxygen Flow Rate (L/min) 15 Oxygen Delivery Method Mechanical Ventilator Weight: 53.5 kg Body Mass Index (BMI) 20.1 Intake & Output: Intake and Output for Last 24 Hours 07/14/25 07/15/25 07/16/25 23:59 23:59 23:59 Intake Total 788.24 / 788.24 Output Total 1750 / 1750 Balance -961.76 / -961.76 Lab / Micro Data 07/16/25 03:20 07/16/25 03:20 Labs: Laboratory Results - last 24 hr 07/16/25 03:20: WBC 13.1 H, RBC 3.95 L, Hgb 11.6 L, Hct 37.9, MCV 95.9, MCH 29.4, MCHC 30.6 L, RDW Std Deviation 51.3 H, RDW Coeff of Shivam 14.6, Plt Count 411, MPV 9.7, Immature Gran % (Auto) 2.900 H, Neut % (Auto) 30.6 L, Lymph % (Auto) 56.5 H, [place] % (Auto) 6.4, Eos % (Auto) 2.7, Baso % (Auto) 0.9, Absolute Neuts (auto) 4.0, Absolute Lymphs (auto) 7.43 H, Nucleated RBC % 0, DifferentialComment SCANNED, Sodium 137, Potassium 3.7, Chloride 100, Carbon Dioxide 21.7, Anion Gap 15, BUN 17, Creatinine 1.27 H, Estim Creat Clear Calc 34.32 L, Est GFR(MDRD) Non-Af 45 L, BUN/Creatinine Ratio 13.1, Glucose 368 H, Calcium 8.5, Magnesium 2.8 H, Total Bilirubin 0.34, AST 158 H, ALT 118 H, Alkaline [id number] H, Total Creatine Kinase 126, Troponin T High Sens 114 H*, NT pro BNP II 7963 H, Total Protein 6.9, Albumin 3.8, Globulin 3.1, Albumin/Globulin Ratio 1.2, Triglycerides 67 07/16/25 04:20: Lactic Acid 3.2 H* 07/16/25 05:29: Troponin T Hi Sens 2 Hr 95 H*, Triglycerides 99, Cholesterol 233H, LDL Cholesterol, Calc 146, VLDL Cholesterol 20, HDL Cholesterol 67, Cholesterol/HDL Ratio 3.49 07/16/25 08:25: Urine Color Straw, Urine Clarity Clear, Urine pH 7.0, Ur Specific [place] 1.005, Urine Protein 30 H, Urine Glucose (UA) Normal, Urine Ketones Negative, Urine Occult Blood 10 H, Urine Nitrite Negative, Urine Bilirubin Negative, Urine Urobilinogen Normal, Ur Leukocyte Esterase Negative, Urine RBC 0 SEEN, Urine WBC 0 SEEN, Ur Squamous Epith Cells 0 SEEN, Urine Bacteria 0 SEEN, Urine Mucus 0 SEEN 07/16/25 08:50: Lactic Acid 1.4, Troponin T Hi Sens 4Hr 93 H* 07/16/25 11:24: POC Glucose 152 H Micro: Microbiology 07/16/25 08:25 Urine Catheter - Madrigal Legionella Antigen - Final 07/16/25 08:25 Urine Catheter - Madrigal Streptococcus pneumoniae Antigen (M - Final 07/16/25 03:36 Sputum, Induced/Lukens Gram Stain - Final 07/16/25 03:44 Mucosa - Nose SARS-CoV-2, Influenza & RSV (PCR) - Final ABG Data ABG results: ABG 07/16/25 07/16/25 03:58 09:42 Specimen Type ART ART Sample Site L Radial L Radial pH 7.06 L* 7.49 H Bicarbonate Actual 21.2 L 29.1 H Total CO2 24 30 Base Excess -9 L 6 H O2 Saturation 86 L 98 O2 % 50.0 50.0 ABG pCO2 75.1 H* 38.6 ABG pO2 73 L 96 Judith Test N/A N/A Respiration Rate 20 20 O2 Delivery Device Adult Vent Adult Vent Vent Mode AC AC Tidal Volume 400.0 400.0 POC PEEP 5 5 Crit Call To/Read Back Yes Blood Gas Notified Whom Dr Sharif Blood Gas Notified Time 04:00:19 Radiography Diagnostic Testing: Radiology Impression Brain CT 07/16/25 03:25 IMPRESSION: There is low-density in the deep white matter on the right and left, and in the right occipital lobe consistent with chronic ischemic change. No acute intracranial pathology. Consider MRI with diffusion scan, or CT perfusion to exclude an acute component. Reading Location: [facility] Chest CTA 07/16/25 03:25 IMPRESSION: No demonstrated PE, or thoracic aortic aneurysm Underlying emphysema with superimposed CHF, pneumonitis, bronchitis, free- flowing bilateral pleural effusions and bibasilar atelectasis ETT tip is in the right mainstem bronchus and should be retracted 3-4 cm, NG tube tip in satisfactory position No suspicious adenopathy Degenerative bony changes [place] Alert: ET tube tip in the SADAF The critical findings in the findings and impression above were relayed directlyby me by telephone to Bernardo Sharif on 07/16/2025 at 6:56 am with readback verification. Reading Location: [id number] Echocardiogram 07/16/25 06:31 Interpretation Summary Mild concentric left ventricular hypertrophy. Inferior hypokinesis. Estimated LVEF 55%. Stage I diastolic dysfunction. Moderate posterior mitral valve annular calcification. Calcified chord. Mild mitral valve regurgitation. Mild tricuspid valve insufficiency. Mildly calcified aortic valve leaflets. Aortic valve sclerosis without stenosis. Mild (1+) pulmonic valve insufficiency. Ordering Physician: Jack Zuniga Performed By: Jake Miguel RCS Abdomen/Pelvis CT 07/16/25 06:40 IMPRESSION: No suspicious solid organ abnormality, there is atrophy of the right kidney compared to the left but no obstructive uropathy or suspicious solid renal lesion. Retained stool throughout the colon which may be impacted No free intraperitoneal fluid, air, or suspicious adenopathy NG tube tip in the body of the stomach Diffuse atherosclerosis Degenerative bony changes Reading Location: [id number] Chest X-Ray 07/16/25 09:05 IMPRESSION: Tubes and lines in position. There interstitial infiltrates in the perihilar region bilaterally and in the left upper lung. Reading Location: [facility] Physical Exam Const Constitutional Narrative: intubated. sedated. cachectic. HEENT head/scalp atraumatic HEENT Narrative: ETT OGT Resp Resp Narrative: coarse breath sounds bilaterally. Cardio regular rate, regular rhythm, S1 normal heart sound and S2 normal heart sound GI normal to inspection, nondistended, normoactive bowel sounds, soft to palpation,non-tender and non-distended Extremity normal to inspection and full ROM Assessment & Plan Assessment/Plan (1) COPD exacerbation: (2) Pneumonia: QUALIFIERS: Pneumonia type: due to unspecified organism Laterality: bilateral Lung location: unspecified part of lung Qualified Code(s): J18.9 - Pneumonia, unspecified organism (3) Acute hypoxic on chronic hypercapnic respiratory failure: (4) CHF exacerbation: QUALIFIERS: Heart failure type: unspecified Qualified Code(s): I50.9 - Heart failure, unspecified (5) Elevated troponin: (6) Hypertensive emergency: (7) Sepsis: QUALIFIERS: Sepsis type: sepsis due to unspecified organism Sepsis acute organ dysfunction status: with acute organ dysfunction Severe sepsis acute organ dysfunction type: acute respiratory failure Acute respiratory failure type: with hypercapnia Severe sepsis shock status: without septic shock Qualified Code(s): A41.9 - Sepsis, unspecified organism; R65.20 - Severe sepsis without septic shock; J96.02 - Acute respiratory failure with hypercapnia (8) Leukocytosis: QUALIFIERS: Leukocytosis type: bandemia Qualified Code(s): D72.825 - Bandemia (9) Lactic acidosis: (10) Transaminitis: (11) Hyperglycemia: PLAN: Plan Acute Hypoxic and Hypercapnic Respiratory Failure * ABG pH 7.06/ PCO2 75.1 mmHg/ PO2 73 mmHg/ HCO3 21.2 mmHg @ 86% on * ventilator * CCM for vent mgmt * 2/2 to AECOPD, AECHF, possible pneumonia * on empiric abx. * respiratory panel, legionella strep antigens negative AECOPD: * Start IV methylprednisolone and give scheduled plus prn nebulizers. Acute HFpEF * concern for flash pulmonary edema. * EF 55% on echo from 07/16/2025 * on IV furosemide. Elevated troponin * trending down. No wall motion abnormality on echo. Hypertensive emergency * elevated blood pressure of 257/127 mmHg with concerns for flash pulmonary edema. * On IV furosemide and PRN hydralazine. Hyperglycemia * of 368 mg/dL present on admission suspicious for DM-2 adding to the burden of disease Check HgbA1c to confirm suspicion of DM-2. Check FSBS q. 4 hours and cover with SSI. Chronic conditions: * CAD; s/p stents x 3 RCA + LAD x 1 (2016) on BASA plus prn SL NTG - Continue BASA daily and serialize troponin. 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 * Hyperlipidemia; on atorvastatin - Maintain statin and check Lipid Profile. * OAB; on oxybutynin - Continue present therapy. * Depression; on venlafaxine - Restart this agent after extubation. * Glaucoma; on brimonidine daily and dorzolamide eyes drops TID - Maintain current therapy. DVT/GI prophylaxis - Lovenox 40 mg sq daily plus SCD's. Pantoprazole 40 mg IV daily. DW family at bedside. Charges/Coding Procedures Hospitalists Procedures: Other Procedure - See Report (Nonbillable rounding as patient was admitted after midnight.) 07/16/25 1212 <Electronically signed by Gerard Santos DO> Cosigner Signature (if applicable): CC: ~ Signed [facility] Work Phone: [phone] 141-979909-24-2025 Consult note Author Noelle Yañez [facility] Note Date/Time July 16, 2025 10:25am [facility] Medical Records Department [address] [place] [address] Pharmacokinetic/Renal -Consult 07/16/25 09 MR#: [id number] Acct: [id number] Name: ZABRINA HSU Rep #:[id number] : 1955 70 From: Noelle Yañez PCP: SEUN Alvarez Status:ADM IN Y Location: ICU ICU01-1 Consult Antibiotic Management Pharmacy has been consulted to manage selected antibiotic: Vancomycin Type of Intervention Type of Consult: New start Suspected Infection Suspected Infection: Pneumonia Labs Labs: Sodium 137 mmol/L (133-145) 07/16/25 03:20 Potassium 3.7 mmol/L (3.3-5.1) 07/16/25 03:20 Chloride 100 mmol/L (98-108) 07/16/25 03:20 Carbon Dioxide 21.7 mmol/L (21.0-32.0) 07/16/25 03:20 Anion Gap 15 (5-15) 07/16/25 03:20 BUN 17 mg/dL (4-19) 07/16/25 03:20 Creatinine 1.27 mg/dL (0.70-1.20) H 07/16/25 03:20 Est GFR (MDRD) Non-Af 45 (>60) L 07/16/25 03:20 BUN/Creatinine Ratio 13.1 RATIO (10-20) 07/16/25 03:20 Glucose 368 mg/dL (70-99) H 07/16/25 03:20 Microbiology Microbiology: Microbiology 07/16/25 08:25 Urine Catheter - Madrigal Legionella Antigen - Final 07/16/25 08:25 Urine Catheter - Madrigal Streptococcus pneumoniae Antigen (M - Final 07/16/25 03:36 Sputum, Induced/[place]ukens Gram Stain - Final 07/16/25 03:44 Mucosa - Nose SARS-CoV-2, Influenza & RSV (PCR) - Final Pharmacy Plan for Drug Dosing Pharmacy Plan for Drug Dosing: NEW START IV VANCOMYCIN Consulting Physician: Leonard Indication: pneumonia Goal Trough: 15-20 mg/dL SrCr: 1.27 mg/dL CrCl: CrCl 34 mL/min Comments: initial ER dose of 750mg given 07/16/25 ~0900 Vancomycin Dose: Will start 750mg Q24H (07/17/25 @ 0900) and get a trough prior to 3rd total dose per policy. Pending Level: 07/18/25 @ 0830 Pharmacy Service will continue to monitor and adjust dosing as required. 07/16/25 0942 <Electronically signed by Noelle Yañez> Date _ Noelle Yañez 07/16/25 1025 <Electronically signed by Eleazar Valle D O> Cosigner Signature (if applicable): Date Eleazar Valle DO CC: ~ Signed [facility] Work Phone: [phone] 119-694009-24-2025 Consult note Author Eleazar Valle [facility] Note Date/Time July 16, 2025 10:10am [facility] Medical Records Department [address] [address] Consultation - Aoc Director Intelligence Officer 07/16/25811 MR#: [id number] Acct: [id number] Name: DAVEZABRINA L Rep #:[id number] : 1955 70 From: Eleazar Valle DO PCP: Alfonso Ozuna NP-Cristiane Status:ADM IN Location: ICU ICU01-1 Assessment & Plan Assessment/Plan (1) Acute respiratory failure with hypoxia and hypercapnia: PLAN: Plan RECOMMENDATIONS: 1. Continue assist-control mode of mechanical ventilation. Wean FiO2 and PEEP as tolerated. 2. Obtain follow-up ABG. 3. Obtain follow-up chest x-ray to confirm appropriate endotracheal tube placement. 4. Empiric antimicrobials, while awaiting infectious workup. 5. Continue scheduled bronchodilators and steroids. 6. Continue diuresis as tolerated by hemodynamics and renal function. 7. Propofol and fentanyl for sedation. Discontinue Versed infusion. 8. Continue appropriate ICU prophylaxis. IMPRESSIONS: 1. Acute respiratory failure with hypoxemia and hypercapnia Most likely multifactorial in etiology. The patient has a known history of COPDand a longstanding tobacco abuse history, but presented to the emergency department profoundly hypertensive with what I suspect is a component of flash pulmonary edema. The patient was ultimately intubated in the emergency department. She will be continued on assist-control mode of mechanical ventilation, with a goal to wean FiO2 and PEEP to maintain saturations at or above 90%. Echocardiogram is currently pending. Given that I cannot definitively rule out infection, we will plan to continue empiric antibiotics, pending culture results. She will be continued on scheduled bronchodilators andIV steroids as well. Diuretics will be continued, as tolerated by hemodynamics and renal function. The patient's Versed infusion will be discontinued. She will be continued on propofol and fentanyl for sedation. 2. History of coronary artery disease status post PCI/history of hypertrophic cardiomyopathy/valvular heart disease Continue diuretics as tolerated by hemodynamics and renal function. Follow-up echocardiogram is currently pending. 3. Chronic tobacco dependency/depression/glaucoma/hyperlipidemia Complicates care, management, recovery and prognosis. Continue supportive measures as noted above. PT/OT to evaluate the patient once medically stabilized. Hold on tube feeding initiation today. TIME: 40 minutes of critical care time, independent of procedures, was spent addressing the patient's acute respiratory failure with hypoxemia and hypercapnia, review of all data and collaboration with the care team. HPI Consult Data Date of Consult: 07/16/25 HPI Narrative Reason for Consultation: Acute respiratory failure HPI Narrative: The patient is a 70-year-old female, with a history as outlined below, who presented to the emergency department on July 16 with shortness of breath. The patient has a known history of COPD and chronic nicotine dependency, having been evaluated in the pulmonary medicine clinic back in 2020. The patient has been lost to follow-up since that time. Her medical history is also significantfor coronary artery disease status post PCI along with an atypical variant of hypertrophic cardiomyopathy. On presentation to the emergency department, the patient was documented to have a temperature of 96.6 ?F. She was tachycardic and notably hypertensive with a presenting blood pressure of 245/99 mmHg. The patient was quite hypoxemic on presentation as well. Laboratory evaluation was notable for a white blood cell count of 13,000. Hemoglobin and platelet count were stable. Initial arterial blood gas was notable for a pH of 7.06 with a pCO2 of 75 and pO2 of 73. Chemistry profile was notable for a creatinine of 1.27. Lactate was elevated at3.2. AST and ALT were increased at 158 and 118, respectively. Troponin was increased to 114. BNP was elevated at 7963. Urine analysis was unremarkable. CT head revealed low-density in the deep white matter on the right and left consistent with chronic ischemic change. CTA chest showed no evidence for pulmonary embolism. There was extensive bilateral emphysematous changes with interstitial septal thickening and ground glass opacities along with bilateral pleural effusions. The patient was ultimately placed on scheduled bronchodilators, IV steroids, antimicrobials and Lasix. [facility] for further management. [facility] Medical History 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 Non-rheumatic mitral regurgitation Depression Anxiety Pulmonary hypertension Essential hypertension Pure hypercholesterolemia Atherosclerotic heart disease of [place] coronary artery without angina pectoris Home Medications ?Medication ?Instructions ?Recorded ?Last Taken ?Type aspirin 81 mg tablet,delayed 81 mg PO DAILY 07/08/19 U nknown History release (Adult Low Dose Aspirin) atorvastatin 40 mg tablet 40 mg PO QHS PRN 07/08/19 Un known History nitroglycerin 0.4 mg sublingual 0.4 mg sublingual Q5-1 5M PRN chest 07/08/19 Unknown History tablet pain oxybutynin chloride 10 mg 10 mg PO DAILY 07/08/19 Unkn own History tablet,extended release 24 hr venlafaxine 75 mg tablet 75 mg PO BID 07/08/19 Unknow n History albuterol sulfate 90 mcg/actuation 2 puff inhalation Q 4H PRN 12/23/20 Unknown Rx aerosol inhaler (Ventolin HFA) shortness of breath or wheezing #8.5 grams brimonidine 0.2 % eye drops ml ophthalmic (eye) Unknown History dorzolamide 2 % eye drops 1 drp ophthalmic (eye) TID 0 06/16/21 Unknown History lisinopril 20 mg tablet 20 mg PO DAILY #90 tabs 05/24 03/12 Unknown Rx Allergy/AdvReac Type Severity Reaction Status Date / Time No Known Allergies Allergy Unverified 06/16/21 14:41 Family History Mother Diabetes Surgical History History of coronary artery stent placement (01/02/17) History of hysterectomy Social History Smoking Status: Current every day smoker tobacco type: cigarettes Tobacco: How many years used: 46 second hand exposure: Yes alcohol intake: never substance use type: does not use caffeine: Yes Type: coffee ROS Review of Systems ROS Unobtainable: due to endotracheal tube Physical Exam Const Constitutional Narrative: The patient is intubated, sedated and mechanically ventilated. She is chronically ill in appearance. General Appearance: frail HEENT normocephalic and head/scalp atraumatic Mouth: endotracheal tube in place and OG tube in place Eyes EOMs intact bilaterally, conjunctivae normal and no scleral icterus Neck supple General: trachea midline Chest Chest Narrative: Increased AP diameter. Resp Auscultation: diminished lung sounds; Negative for rales, rhonchi or wheezes Cardio regular rate and regular rhythm GI normal to inspection, nondistended, normoactive bowel sounds Extremity no clubbing, cyanosis or edema Skin no rashes or lesions noted Neuro Sensorium / Orientation: sedated on vent Lab / Micro Data 07/16/25 03:20 07/16/25 03:20 Labs: Laboratory Results - last 24 hr 07/16/25 03:20: WBC 13.1 H, RBC 3.95 L, Hgb 11.6 L, Hct 37.9, MCV 95.9, MCH 29.4, MCHC 30.6 L, RDW Std Deviation 51.3 H, RDW Coeff of Shivam 14.6, Plt Count 411, MPV 9.7, Immature Gran % (Auto) 2.900 H, Neut % (Auto) 30.6 L, Lymph % (Auto) 56.5 H, [place] % (Auto) 6.4, Eos % (Auto) 2.7, Baso % (Auto) 0.9, Absolute Neuts (auto) 4.0, Absolute Lymphs (auto) 7.43 H, Nucleated RBC % 0, DifferentialComment SCANNED, Sodium 137, Potassium 3.7, Chloride 100, Carbon Dioxide 21.7, Anion Gap 15, BUN 17, Creatinine 1.27 H, Estim Creat Clear Calc 34.32 L, Est GFR(MDRD) Non-Af 45 L, BUN/Creatinine Ratio 13.1, Glucose 368 H, Calcium 8.5, Magnesium 2.8 H, Total Bilirubin 0.34, AST 158 H, ALT 118 H, Alkaline [id number] H, Total Creatine Kinase 126, Troponin T High Sens 114 H*, NT pro BNP II 7963 H, Total Protein 6.9, Albumin 3.8, Globulin 3.1, Albumin/Globulin Ratio 1.2, Triglycerides 67 07/16/25 04:20: Lactic Acid 3.2 H* 07/16/25 05:29: Troponin T Hi Sens 2 Hr 95 H* Micro: Microbiology 07/16/25 03:44 Mucosa - Nose SARS-CoV-2, Influenza & RSV (PCR) - Final ABG Data ABG results: ABG 07/16/25 03:58 Specimen Type ART Sample Site L Radial pH 7.06 L* Bicarbonate Actual 21.2 L Total CO2 24 Base Excess -9 L O2 Saturation 86 L O2 % 50.0 ABG pCO2 75.1 H* ABG pO2 73 L Judith Test N/A Respiration Rate 20 O2 Delivery Device Adult Vent Vent Mode AC Tidal Volume 400.0 POC PEEP 5 Crit Call To/Read Back Yes Blood Gas Notified Whom Dr Sharif Blood Gas Notified Time 04:00:19 Imaging Radiology Impression Brain CT 07/16/25 03:25 IMPRESSION: There is low-density in the deep white matter on the right and left, and in the right occipital lobe consistent with chronic ischemic change. No acute intracranial pathology. Consider MRI with diffusion scan, or CT perfusion to exclude an acute component. Reading Location: [facility] Chest CTA 07/16/25 03:25 IMPRESSION: No demonstrated PE, or thoracic aortic aneurysm Underlying emphysema with superimposed CHF, pneumonitis, bronchitis, free- flowing bilateral pleural effusions and bibasilar atelectasis ETT tip is in the right mainstem bronchus and should be retracted 3-4 cm, NG tube tip in satisfactory position No suspicious adenopathy Degenerative bony changes [place] Alert: ET tube tip in the SADAF The critical findings in the findings and impression above were relayed directlyby me by telephone to Bernardo Sharif on 07/16/2025 at 6:56 am with readback verification. Reading Location: [facility] Abdomen/Pelvis CT 07/16/25 06:40 IMPRESSION: No suspicious solid organ abnormality, there is atrophy of the right kidney compared to the left but no obstructive uropathy or suspicious solid renal lesion. Retained stool throughout the colon which may be impacted No free intraperitoneal fluid, air, or suspicious adenopathy NG tube tip in the body of the stomach Diffuse atherosclerosis Degenerative bony changes Reading Location: [facility] Charges/Coding Procedures Hospitalists Procedures: 83630 Critical Care 1st Hr 07/16/25 1010 <Electronically signed by Eleazar Valle DO> Cosigner Signature (if applicable): CC: SEUN Ozuna~ Signed [facility] Work Phone: [phone] 859-242609-24-2025 Radiology Diagnostic study [facility]09-24-2025 Discharge summary Author Bernardo Sharif [facility] Note Date/Time July 16, 2025 7:03am [facility] Medical Records Department [address] [place] [address] Emergency Department Summary 07/16/25 MR#: [id number] Acct: [id number] Name: DAVEZABRINA L Rep #:[id number] : 1955 70 From: Bernardo Small PCP: SEUN Alvarez Status:REG ER Location: ED HPI History of Present Illness Chief Complaint: Shortness of Breath PFSH PFSH Medical History Anxiety 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 Depression Essential hypertension Myocardial fibrosis Non-rheumatic mitral regurgitation Pulmonary hypertension Pure hypercholesterolemia Home Medications ?Medication ?Instructions ?Recorded ?Last Taken ?Type aspirin 81 mg tablet,delayed 81 mg PO DAILY 07/08/19 U nknown History release (Adult Low Dose Aspirin) atorvastatin 40 mg tablet 40 mg PO QHS PRN 07/08/19 Un known History nitroglycerin 0.4 mg sublingual 0.4 mg sublingual Q5-1 5M PRN chest 07/08/19 Unknown History tablet pain oxybutynin chloride 10 mg 10 mg PO DAILY 07/08/19 Unkn own History tablet,extended release 24 hr venlafaxine 75 mg tablet 75 mg PO BID 07/08/19 Unknow n History albuterol sulfate 90 mcg/actuation 2 puff inhalation Q 4H PRN 12/23/20 Unknown Rx aerosol inhaler (Ventolin HFA) shortness of breath or wheezing #8.5 grams brimonidine 0.2 % eye drops ml ophthalmic (eye) Unknown History dorzolamide 2 % eye drops 1 drp ophthalmic (eye) TID 0 06/16/21 Unknown History lisinopril 20 mg tablet 20 mg PO DAILY #90 tabs 05/24 03/12 Unknown Rx Allergy/AdvReac Type Severity Reaction Status Date / Time No Known Allergies Allergy Unverified 06/16/21 14:41 Family History Mother Diabetes Surgical History History of coronary artery stent placement (01/02/17) History of hysterectomy Social History Smoking Status: Current every day smoker tobacco type: cigarettes Tobacco: How many years used: 46 second hand exposure: Yes alcohol intake: never substance use type: does not use caffeine: Yes Type: coffee [facility] MDM MDM Narrative Medical decision making narrative: HISTORY OF PRESENT ILLNESS: Chief complaint: Shortness of breath 70-year-old female history of COPD, pulm hypertension, anemia, hypertension, hypertrophic cardiomyopathy, myocardial fibrosis, CAD status post stent presentswith shortness of breath. Patient is an extremis and cannot provide reliable history. Per EMS patient was initially 60% on home O2. Per EMS patient got 2 rounds of duo/nebs and 125 mg of solumedrol. REVIEW OF SYSTEMS: Unable to obtain reliable review of system secondary to altered mental status PHYSICAL EXAM: Nursing triage notes reviewed, Vital signs reviewed Constitutional: please see mdm HENT: MMM Eyes: Pupils equal round and reactive to light, Extraocular muscles intact Neck: Positive JVD Lungs: Tight lungs, wheezes/rales throughout, increased work of breathing, severe respiratory distress Heart: Reg fast regular rate Abdomen: Soft, no distention : No CVAT Extremities: No edema Neuro: Groans to painful stimuli, Skin: No rash or lesions noted MEDICAL DECISION MAKING: Chief Complaint: please see HPI External records reviewed: Reviewed prior echocardiogram from 2017 which showed ejection fraction 65%. Reviewed recent hospitalization. Patient was admitted to [facility] from 06/16/2025 until 06/25/2025 for acute on chronic respiratory failure hypoxia. Acute pulmonary edema, NSTEMI, COPD exacerbation. This time patient suffered respiratory failure required mechanical ventilation. Factors affecting care: As per HPI Social determinants of health: none History obtained from others: EMS Consults: Internal Medicine (Dr. Haile) [facility] Narrative: The patient was initially hypertensive blood pressure initially 257/98, tachypneic respirate of 30, and extreme respiratory distress with altered mentalstatus requiring immediate airway intervention in the form endotracheal intubation. Please see below procedure note. I considered the following differential diagnosis: Flash pulmonary edema, COPD exacerbation, ACS, arrhythmia, anemia, COVID, RSV, flu, pneumonia I obtained a broad lab and imaging workup to further determine if the patient was suffering from a life-threatening etiology. Also obtained a CT scan of the head given altered mental status. CTA of the chest given extreme respiratory distress. Also obtained an ABG given requirement for intubation. ALL IMAGES (IF OBTAINED) HAVE BEEN PERSONALLY REVIEWED AND INTERPRETED BY MYSELF. EKG with sinus tachycardia rate of 105, normal axis, normal intervals, no obvious STEMI, occasional PVCs, Patient was noted to continue to be significantly hypertensive raising the specter of flash pulmonary edema. Patient was started on nitroglycerin drip at 100 mcg/min. After approximately 5minutes on the nitroglycerin drip she continued to be hypertensive and placed out of adequate sedation so she was given 100 mg bolus of propofol, 5 mg bolus of Versed and started on Versed drip. ABG showed significant respiratory acidosis with a pH of 7.058, CO2 of 75 consistent with CO2 retention from likely COPD exacerbation CBC with leukocytosis suggestive of system inflammation, mild anemia, no thrombocytopenia BMP without significant electrolyte disturbances, no SANTO, no sign of endorgan hypoperfusion or metabolic acidosis. Serum glucose elevated BNP elevated consistent with volume overload and heart failure COVID/RSV/flu is negative LFTs with elevation in liver enzymes consistent with likely volume overload fromCHF exacerbation Initial troponin elevated consistent with myocardial ischemia is likely a type II demand ischemia given hypoxia significant acidosis initial lactate elevated consistent endorgan hypoperfusion likely secondary to hypoxia Patient remained hypertensive despite propofol drip, nitroglycerin drip. She was given a dose of bicarb given acidosis and given 20 mg IV labetalol. After IV labetalol patient blood pressure crash. Blood pressure was as low as 78 systolic. This quickly rebounded to 140 systolic after discontinuing propofol drip decrease patient's tidal volume slightly. Discussed case with hospitalist Dr. Hess who agreed admit the patient as long as CT scans of head and chest did not show diagnosis that needed transfer to higher level of care. He recommended giving broad-spectrum antibiotics givenSIRS and sepsis criteria. Gave vancomycin and Zosyn. Also recommend repeating ABG which was also ordered. CT of the chest was negative for acute PE, thoracic aortic aneurysm. Noted underlying for Zima, superimposed CHF, pneumonitis and bronchitis noted. CT scan of the brain showed no evidence of ICH. Patient is appropriate for admission here at [facility] to intensive care unit. Dr. Hess added on a CT scan of the abdomen pelvis is pending at this time. The procedure was performed by myself. Indications: Acute respiratory distress, altered mental status Procedure Description: Patient was preoxygenated with BiPAP. Patient in supine position. Of note during intubation white frothy pulmonary expectorate was noted in the posterior oropharynx. Use video laryngoscopy with a 4.0 hyperventilated Mac blade to place an 8.0 ET tube through the cords. First pass success. No immediate complications. Post intubation pulse ox was initially 80% but quickly improved to 100%. Post-Procedure Assessment: Tracheal intubation was confirmed with breath sounds auscultated equally bilaterally; appropriate color change with end tidal CO2 detector and waveform capnography. The patient tolerated the procedure well with no immediate complications. The patient and/or family, caregivers express understanding. The patient and/orfamily, caregivers agrees with the plan. Shared decision making: I will have a discussion with the patient and or visitors regarding risk/benefits of further testing or admission. They will be made aware of of the risk/benefits inherent in this decision they will be given the opportunity to voice understanding. Total critical care time today provided was at least 60 minutes. This excludes separately billable procedures. Critical care time (if documented) is secondary to the patient having high probability of clinically significant/life threatening deterioration in the patient's condition which required my urgent intervention. Impression: 1. Acute hypoxic respiratory failure 2. Hypertensive emergency 3. Flash pulmonary edema 4. COPD exacerbation Dispo: Admit to ICU This note was generated with Card[employer] dictation software. It may contain incorrectwords, spelling, and punctuation that were not noted in review of the chart prior to signing. Discharge Plan Triage Chief Complaint: Shortness of Breath ED Provider: Bernardo Sharif Dx/Rx/DC Orders Prescriptions: No Action nitroglycerin 0.4 mg tablet, sublingual 0.4 mg SUBLINGUAL Q5-15M PRN (Reason: chest pain) aspirin [Adult Low Dose Aspirin] 81 mg tablet,delayed release (DR/EC) 81 mg PO DAILY atorvastatin 40 mg tablet 40 mg PO QHS PRN venlafaxine 75 mg tablet 75 mg PO BID oxybutynin chloride 10 mg tablet extended release 24hr 10 mg PO DAILY albuterol sulfate [Ventolin HFA] 90 mcg/actuation HFA aerosol inhaler 2 puff INHALATION Q4H PRN (Reason: shortness of breath or wheezing) Qty: 8.5 6RF brimonidine 0.2 % drops ophthalmic (eye) dorzolamide 2 % drops 1 drp ophthalmic (eye) TID lisinopril 20 mg tablet 20 mg PO DAILY Qty: 90 3RF Primary Care Provider: Alfonso Ozuna GEOSCIENTIST Referrals: Alfonso Ozuna NP, GEOSCIENTIST-C [Primary Care Provider, Family Practice] Print Language: Somali What to do if you have Problems For any increased pain, shortness of breath, bleeding, nausea or vomiting, chestpain, or any unexpected problems, contact your Primary Care Provider. Call [facility] ([phone]) or report to the closest Emergency Room. Call 911 if necessary. 07/16/25 0703 <Electronically signed by Bernardo Sharif DO> Cosigner Signature (if applicable): CC: GEOSCIENTISTAaronC Alfonso Ozuna ~ Signed [facility] Work Phone: 1(176) 141-816309-24-2025 Evaluation note* Diagnosis Onset Date Resolution Status Admit Date Acute hypoxic on chronic hypercapnic respiratory failure acute July 16, 2025 6:21am Acute respiratory failure hypoxia and hypercapnia acute Septembe r 2024 6:21am Counseling regarding goals o f care acute July 16, 2025 6:21am Elevated troponin acute Septemb er 2024 6:21am Hyperglycemia acute June 242024 6:21am Hypertensive emergency acute Se ptember 2024 6:21am Lactic acidosis acute July 16, 2025 6:21am Leukocytosis acute July 162024 6:21am Multifocal atrial tachycardia acute July 16, 2025 6:21am Palliative care encounter acute July 16, 2025 6:21am Pneumonia acute June 6:21am Sepsis acute June 6:21am Transaminitis acute June 242024 6:21am CHF exacerbation chronic Septembe r 2024 6:21am COPD exacerbation chronic Septemb er 2024 6:21am [facility] Work Phone: [phone] [id number] NoteAcceptable Specimen? Acceptable Specimen(Evaluation not needed) Gram Stain 2+ White Blood Cells Rare Epithelial cells Rare Gram positive cocciWCleveland Clinic Lutheran HospitalComment on above:Performed By: #### M100.2400, M100.2000, M100.678, M100.2200 ####[facility] [id number] [place], [address](105) [id number] Radiology Diagnostic study [facility]09-24-2025 Radiology Diagnostic study [facility]09-24-2025 Radiology Diagnostic study note [facility]09-24-2025 History and physical note Author Jack Haile [facility] Note Date/Time July 16, 2025 7:05pm [facility] Medical Records Department [address] [place] [address] H&P Exam - Hospitalist 07/16/25 0413 MR#: [id number] Acct: [id number] Name: ZABRINA HSU Rep #:[id number] : 1955 70 From: Jack Deleon DO PCP: SUEN Alvarez Status:ADM IN Location: ICU ICU01-1 HPI - General General Date of Service: 07/16/25 Chief Complaint: SOB. HPI Narrative ZABRINA HSU, is a 70 F with a past medical history of essential hypertension; on lisinopril, hyperlipidemia; on atorvastatin, chronic tobacco abuse x ~46 years, CAD; s/p stents x 3 RCA + LAD x 1 (2016) on BASA plus prn SL NTG, history of apical variant hypertrophic cardiomyopathy per MRI (2017), history of nonrheumatic mitral regurgitation, history of myocardial fibrosis, history of inducible AVNRT, tobacco abuse; with subsequent COPD, pulmonary hypertension, OAB; on oxybutynin, depression; on venlafaxine, glaucoma; on brimonidine daily and dorzolamide eyes drops TID, history of hysterectomy and OAwho [facility]. Ms. Hsu was noted to be in respiratory distress upon arrival to the ER causing her to beimmediately started ion BiPAP prior to being intubated so information was gathered from chart, medical staff and computer. In the ER she was noted to have a highly elevated blood pressure of 257/127 mmHg present on admission consistent with Hypertensive Emergency complicated by an elevated NT pro-BNP II of 7,963 pg/mL present on admission due to AE of CHF compounded by clinical evidence of AE COPD with Acute Hypoxic and Hypercapnic Respiratory Failure evidenced by ABG pH 7.06/ PCO2 75.1 mmHg/ PO2 73 mmHg/ HCO3 21.2 mmHg @ 86% on AC vent 400 with 5 PEEP on 50% FiO2 along with Leukocytosis of 13.1K with Left-shift of 2.9% and Lactic Acidosis of 3.2 mmol/L concerning for Sepsis in addition to Transaminitis; AST 158 U/L, ALT 118 U/L and Alkaline Phosphatase 163U/L plus Hyperglycemia of 368 mg/dL present on admission. She was then admittedto the ICU for ongoing care for a stay that is expected to extend beyond 2 midnights. [facility] Medical History 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 Non-rheumatic mitral regurgitation Depression Anxiety Pulmonary hypertension Essential hypertension Pure hypercholesterolemia Atherosclerotic heart disease of [place] coronary artery without angina pectoris Home Medications ?Medication ?Instructions ?Recorded ?Last Taken ?Type aspirin 81 mg tablet,delayed 81 mg PO DAILY 07/08/19 U nknown History release (Adult Low Dose Aspirin) atorvastatin 40 mg tablet 40 mg PO QHS PRN 07/08/19 Un known History nitroglycerin 0.4 mg sublingual 0.4 mg sublingual Q5-1 5M PRN chest 07/08/19 Unknown History tablet pain oxybutynin chloride 10 mg 10 mg PO DAILY 07/08/19 Unkn own History tablet,extended release 24 hr venlafaxine 75 mg tablet 75 mg PO BID 07/08/19 Unknow n History albuterol sulfate 90 mcg/actuation 2 puff inhalation Q 4H PRN 12/23/20 Unknown Rx aerosol inhaler (Ventolin HFA) shortness of breath or wheezing #8.5 grams brimonidine 0.2 % eye drops ml ophthalmic (eye) Unknown History dorzolamide 2 % eye drops 1 drp ophthalmic (eye) TID 0 06/16/21 Unknown History lisinopril 20 mg tablet 20 mg PO DAILY #90 tabs 05/24 03/12 Unknown Rx Allergy/AdvReac Type Severity Reaction Status Date / Time No Known Allergies Allergy Unverified 06/16/21 14:41 Family History Mother Diabetes Surgical History History of coronary artery stent placement (01/02/17) History of hysterectomy Social History Smoking Status: Current every day smoker tobacco type: cigarettes Tobacco: How many years used: 46 second hand exposure: Yes alcohol intake: never substance use type: does not use caffeine: Yes Type: coffee ROS ROS Narrative ROS was not possible with patient intubated and sedated. Vital Signs Vital Signs Vital Signs: 07/16/25 03:07 07/16/25 03:19 07/16/25 03:19 Temperature 97 F L Temperature Source Temporal Pulse Rate 91 95 Respiratory Rate 30 H 20 H Respiratory Effort Labored Accessory Muscle Use Respiratory Depth Deep Respiratory Pattern Normal Blood Pressure 257/98 H Blood Pressure Mean 151 Pulse Ox 96 95 Oxygen Delivery Method Nasal Cannula Oxygen Flow Rate (L/min) 15 Fraction of Inspired Oxygen (FIO2) 75 07/16/25 03:52 07/16/25 03:53 07/16/25 03:55 Temperature 96.6 F L Temperature Source Core Pulse Rate 101 H Respiratory Rate 17 Respiratory Effort Mechanically Ventilated Respiratory Depth Respiratory Pattern Blood Pressure 247/111 H Blood Pressure Mean 156 Pulse Ox 95 Oxygen Delivery Method Mechanical Ventilator Mechanical Ventilator Oxygen Flow Rate (L/min) Fraction of Inspired Oxygen (FIO2) 75 07/16/25 04:00 07/16/25 04:03 Temperature Temperature Source Pulse Rate 95 111 H Respiratory Rate 20 H Respiratory Effort Respiratory Depth Respiratory Pattern Normal Blood Pressure 257/127 H Blood Pressure Mean Pulse Ox Oxygen Delivery Method Oxygen Flow Rate (L/min) Fraction of Inspired Oxygen (FIO2) Weight Weight: 117 lb 15.157 oz Body Mass Index (BMI) 20.2 Physical Exam Const Constitutional Narrative: Patient is intubated and sedated on mechanical ventilator. HEENT normocephalic and head/scalp atraumatic Eyes PERRL, EOMs intact bilaterally and conjunctivae normal Neck no lymphadenopathy and supple Resp Resp Narrative: Diffuse wheezing with air movement throughout. Cardio regular rate and regular rhythm GI normal to inspection, nondistended, normoactive bowel sounds, soft to palpation,non-tender and non-distended Extremity normal to inspection, full ROM and no clubbing, cyanosis or edema Skin Skin Narrative: Patient has no evidence of rash, abscess, wounds or jaundice. Neuro Neuro Narrative: Patient is intubated and sedated on mechanical ventilator. Results Medical Records Data Attestation: I reviewed the patient's medical records Lab / Micro Data Attestation: I reviewed the patient's lab results. 07/16/25 03:20 07/16/25 03:20 Labs: Laboratory Results - last 24 hr 07/16/25 03:20: WBC 13.1 H, RBC 3.95 L, Hgb 11.6 L, Hct 37.9, MCV 95.9, MCH 29.4, MCHC 30.6 L, RDW Std Deviation 51.3 H, RDW Coeff of Shivam 14.6, Plt Count 411, MPV 9.7, Immature Gran % (Auto) 2.900 H, Neut % (Auto) 30.6 L, Lymph % (Auto) 56.5 H, [place] % (Auto) 6.4, Eos % (Auto) 2.7, Baso % (Auto) 0.9, Absolute Neuts (auto) 4.0, Absolute Lymphs (auto) 7.43 H, Nucleated RBC % 0, Sodium 137, Potassium 3.7, Chloride 100, Carbon Dioxide 21.7, Anion Gap 15, BUN 17, Creatinine 1.27 H, Estim Creat Clear Calc 34.32 L, Est GFR (MDRD) Non-Af 45 L, BUN/Creatinine Ratio 13.1, Glucose 368 H, Calcium 8.5, Total Bilirubin 0.34, [id number] H, ALT 118 H, Alkaline Phosphatase 163 H, Total Creatine Kinase 126, NT pro BNP II 7963 H, Total Protein 6.9, Albumin 3.8, Globulin 3.1, Albumin/Globulin Ratio 1.2, Triglycerides 67 ABG Data ABG results: ABG 07/16/25 03:58 Specimen Type ART Sample Site L Radial pH 7.06 L* Bicarbonate Actual 21.2 L Total CO2 24 Base Excess -9 L O2 Saturation 86 L O2 % 50.0 ABG pCO2 75.1 H* ABG pO2 73 L Judith Test N/A Respiration Rate 20 O2 Delivery Device Adult Vent Vent Mode AC Tidal Volume 400.0 POC PEEP 5 Crit Call To/Read Back Yes Blood Gas Notified Whom Dr Sharif Blood Gas Notified Time 04:00:19 Imaging [facility] Imaging Services [address] [place] [address] Brain/Head without Contrast MR#: [id number] Acct: [id number] Name: ZABRINA HSU Rep #: [id number] : 1955 F 70 From: Shimon Santos MD PCP: SEUN Alvarez Status: REG ER Study: Brain/Head without Contrast Date of Exam: 07/16/25 Exam# [id number] Ordering Dr: Bernardo Sharif DO EXAM: NONCONTRAST CT SCAN OF THE HEAD CLINICAL HISTORY: AMS COMPARISON: None TECHNIQUE: Serial axial series through the head were obtained without contrast. 2-D coronaland sagittal reformats were then obtained. DLP = 745 mGy-cm FINDINGS: Brain: There is no acute large territorial infarct, intracranial hemorrhage, midline shift or mass effect. There are atherosclerotic vascular calcifications involving the bilateral carotid siphons.The sella and pineal gland regions appear unremarkable. There is low-density in the deep white matter on the right and left, and in the right occipital lobe consistent with chronic ischemic change. There is no evidence of cerebellar tonsillar herniation. Ventricles: There is no acute hydrocephalus. Basilar cisterns are patent. Paranasal sinuses: Well-aerated Mastoid air cells: Well-aerated. Calvarium: The bony calvarium is intact. Orbits: The bilateral globes are symmetric, without retrobulbar compressive masslesion or hemorrhage. CT/Brain/Head without Contrast IMPRESSION: There is low-density in the deep white matter on the right and left, and in the right occipital lobe consistent with chronic ischemic change. No acute intracranial pathology. Consider MRI with diffusion scan, or CT perfusion to exclude an acute component. Reading Location: [facility] CC: SEUN Ozuna; Dr. Bernardo Sharif DO ~ Neuro Intensivist Physician: Signed ----- [facility] Services [address] [place], [place] [address] CTA Chest W/WO Contrast MR#: [id number] Acct: [id number] Name: ZABRINA HSU Rep #: [id number] : 1955 F 70 From: Aleksandr Levine MD PCP: SEUN Alvarez Status: [facility] Study: CTA Chest W/WO Contrast Date of Exam: 07/16/25 Exam# [id number] Ordering Dr: Bernardo Sharif DO PROCEDURE: CTA CHEST W/WO CONTRAST 07/16/2025 REASON FOR EXAM: HYPOXIA TECHNIQUE: Procedure Code: [id number] Modality: CT Procedure: CTA CHEST W/WO CONTRAST Multiplanar Sagittal and Coronal images were obtained. CONTRAST: Isovue 370 VOLUME: 100 mL One or more dose reduction techniques were used (e.g., Automated exposure control, adjustment of the mA and/or kV according to patient size, use of iterative reconstruction technique). RADIATION DOSE SUMMARY: CTDlvol: 25.23 mGy DLP: 345.21 mGycm COMPARISON: No recent studies, previous chest CT from 2020 # of known CTs in the past 12 months: 0 # of known Cardiac Nuclear Medicine Studies in the past 12 months: 0 FINDINGS: Patient is intubated, tip of the ET tube is in the right mainstem bronchus and should be retracted 3-4 cm. NG tube tip is in the body of the stomach The pulmonary arteries enhance avidly. No evidence of low-density filling defect to suspect PE. Peripheral calcifications are noted in the thoracic aorta no demonstrated aneurysm I can not evaluate for dissection due to lack of IV contrast within the majority of the thoracic aorta. There are calcified coronary vessels. Lung windows show underlying emphysema with superimposed interstitial edema and chronic interstitial changes with free-flowing bilateral pleural effusions, and bibasilar atelectasis with diffuse peribronchial thickening. Findings suggest a combination of CHF and superimposed bronchitis and pneumonitis. The soft tissue windows show a normal-appearing thyroid gland. No suspicious axillary, mediastinal or perihilar adenopathy. Bony structures show degenerative change. Limited cuts through the upper abdomen show diffuse atherosclerotic calcifications and nonobstructing bilateral renal stones. CT/CTA Chest W/WO Contrast IMPRESSION: No demonstrated PE, or thoracic aortic aneurysm Underlying emphysema with superimposed CHF, pneumonitis, bronchitis, free- flowing bilateral pleural effusions and bibasilar atelectasis ETT tip is in the right mainstem bronchus and should be retracted 3-4 cm, NG tube tip in satisfactory position No suspicious adenopathy Degenerative bony changes [place] Alert: ET tube tip in the SADAF The critical findings in the findings and impression above were relayed directlyby me by telephone to Bernardo Sharif on 07/16/2025 at 6:56 am with readback verification. Reading Location: [id number] CC: GEOSCIENTISTNuvia Ozuna; Dr. Bernardo Sharif DO ~ Neuro Intensivist Physician: Signed Assessment & Plan Assessment/Plan (1) COPD exacerbation: (2) Pneumonia: QUALIFIERS: Pneumonia type: due to unspecified organism Laterality: bilateral Lung location: unspecified part of lung Qualified Code(s): J18.9 - Pneumonia, unspecified organism (3) Acute hypoxic on chronic hypercapnic respiratory failure: (4) CHF exacerbation: QUALIFIERS: Heart failure type: unspecified Qualified Code(s): I50.9 - Heart failure, unspecified (5) Elevated troponin: (6) Hypertensive emergency: (7) Sepsis: QUALIFIERS: Acute respiratory failure type: with hypercapnia Sepsis acute organ dysfunction status: with acute organ dysfunction Sepsis type:sepsis due to unspecified organism Severe sepsis acute organ dysfunction type: acute respiratory failure Severe sepsis shock status: without septic shock Qualified Code(s): A41.9 - Sepsis, unspecified organism; R65.20 - Severe sepsis without septic shock; J96.02 - Acute respiratory failure with hypercapnia (8) Leukocytosis: QUALIFIERS: Leukocytosis type: bandemia Qualified Code(s): D72.825 - Bandemia (9) Lactic acidosis: (10) Transaminitis: (11) Hyperglycemia: PLAN: Plan 1. AE COPD with Acute Hypoxic and Hypercapnic Respiratory Failure evidenced by ABG pH 7.06/ PCO2 75.1 mmHg/ PO2 73 mmHg/ HCO3 21.2 mmHg @ 86% on AC vent 400 with 5 PEEP on 50% FiO2 in the setting of previously known Chronic Tobacco Abuseand Pulmonary Hypertension - Admit to ICU. Start IV methylprednisolone and givescheduled plus prn nebulizers. Wean ventilator as tolerated. Check viral respiratory panel. Tobacco Cessation will be strongly encouraged after extubation with Nicotine patch offered to control cravings. CTA of chest could not be done immediately due to patient instability and is pending at this time to confirm suspicion of Pneumonia with ER physician notified to retract ET tube. Finally, we will consult pulmonary/critical care to this patient on rounds in the AM for further recommendations with help appreciated in advance. 2. Elevated NT pro-BNP II of 7,963 pg/mL with elevated Troponin of 114 ng/L both present on admission due to AE of CHF of uncertain type complicating #1 - Give furosemide IV daily plus supplemental KCl and magnesium. Check echocardiogram to evaluate LVEF. Increased troponin suspected to be due to acute cardiac strain arising from #1 & #3. 3. Highly elevated blood pressure of 257/127 mmHg present on admission consistent with Hypertensive Emergency due to #1 & #2 in the setting of previously known Essential Hypertension - Patient will be treated with IV furosemide for #2 in addition to hydralazine IV prn for systolic blood pressure > 180mmHg. 4. Leukocytosis of 13.1K with Left-shift of 2.9% and Lactic Acidosis of 3.2 mmol/L concerning for Sepsis compounding #1 - #3 - Start empiric IV vancomycin and IV piperacillin-tazobactam and await culture & sensitivity data. Viral respiratory panel pending for #1. Patient did not receive Sepsis fluid bolus due to #2. 5. Transaminitis; AST 158 U/L, ALT 118 U/L and Alkaline Phosphatase 163 U/L present on admission adding to the medical complexity of #1 - #4 - Check CT scanof abdomen and pelvis to evaluate for liver pathology. Check hepatitis profile. 6. Hyperglycemia of 368 mg/dL present on admission suspicious for DM-2 adding to the burden of disease outlined from #1 - #5 - Check HgbA1c to confirm suspicion of DM-2. Check FSBS q. 4 hours and cover with SSI. 7. CAD; s/p stents x 3 RCA + LAD x 1 (2017) on BASA plus prn SL NTG - Continue BASA daily and serialize troponin. 8. History of apical variant hypertrophic cardiomyopathy per MRI (2017) - Noted. 9. History of myocardial fibrosis - Noted. 10. History of nonrheumatic mitral regurgitation - Check echocardiogram this admission as outlined in #2. 11. History of inducible AVNRT - Noted with no evidence of recurrence at this time. 12. Hyperlipidemia; on atorvastatin - Maintain statin and check Lipid Profile. 13. OAB; on oxybutynin - Continue present therapy. 14. Depression; on venlafaxine - Restart this agent after extubation. 15. Glaucoma; on brimonidine daily and dorzolamide eyes drops TID - Maintain current therapy. 16. History of hysterectomy - Noted. 17. OA -Stable. 18. DVT/GI prophylaxis - Lovenox 40 mg sq daily plus SCD's. Pantoprazole 40 mgIV daily. Total time: Approximately (but not less than) 75 minutes. Sepsis Attestation Sepsis Alert: Yes Sepsis Attestation: Agree w/Sepsis Date exam was performed: 07/16/25 Time exam was performed: 06:40 Possible Source of Sepsis: Pulmonary Sepsis Organ Dysfunction Criteria Present: Acute Respiratory Failure (New need for BiPAP/CPAP or MV), Lactic Acid > 2 mmol/L and New/Unexplained change in mental status Fluid Resuscitation Fluid resuscitation indicated?: Yes Fluid Resuscitation ordered: Lesser volume fluid bolus ordered Amount of fluid ordered: 0 Reason for lesser fluid bolus:: Concern for fluid overload and Heart failure Sepsis Note Date exam was performed: 07/16/25 Time exam was performed: 07:00 Sepsis Attestation: Sepsis re-evaluation was performed Response to fluids: Fluid responsive hypotension Charges/Coding Visit Charges Inpatient E&M: 02469 Init Hosp L3 07/16/251904 <Electronically signed by Jack Zuniga DO> Cosigner Signature (if applicable): CC: SEUN Ozuna; Dr. Jack Zuniga DO~ Signed [facility] Work Phone: [phone]) 812-488809-03-2025 Cardiology Progress note Subjective Patient seen and examined bedside this morning. Denies any new concerns. Heart cath with PCI to LADyesterday, right radial access looks clean dry and [...] Complete by Nursing Assessment/Plan CAD s/p PCI ([facility] 06/24/2025 -significant LAD disease status post PCI [...] to 35% with wall motion abnormality. Underwent [facility] yesterday showing significant LAD disease with PCI to LAD and moderate disease in LCx, which is recommended to manage medically. Patient tolerated DAPT with aspirin and Plavix. Continue Coreg, Entresto and spironolactone. Okay to be discharged from cardiac standpoint. Digitally Signed by HARSH CEDILLO MD on 06/25/2025 01:39 PM [id number] Note Discharge Instructions Thank you for allowing [facility] to assist you with your healthcare needs. The following is importantdischarge information regarding your hospital visit. Your Care Team ALFONSO OZUNA What to do next Instructions From Your Doctor Came in the hospital with difficulty breathing he found that she had severe COPD exacerbation in addition to concern for heart disease. treated with steroid therapy and opening up of heart blockage. Please take aspirin and Plavix along with prednisone and follow-up outpatient with your primary careand heart doctor Follow Up Appointments Follow Up with LUIS CANCHOLA MD When:In 2 weeks Where:[address] [facility] [place] [address]- Follow Up with Cardiac Rehab- [facility] Where:[facility] [address] [place] [address]- Additional Information: Cardiac rehabilitation is a vital part of your recovery and long-term hearthealth following your hospital stay. It is a medically supervised exercise and education program designed to improve your physical fitness, manage heart-related risk factors, and support emotional well-being. A cardiac rehab sales floor team leader will contact you soon to schedule your follow-up appointment. If you have any questions please call [phone]. Follow Up with [facility], When:Within 1-2 days Additional Information: [facility] has been referred to provide your home care services upon discharge; a nurse will contact you upon your return home to arrange for your start of care; please call with any further questions or concerns. Follow Up with ALFONSO OZUNA When:Within 1-2 days Where:[address] [place] [address] [phone] Additional Information: Please call the office to [...] a day Duration: 3 Days Pickup at [facility] New spironolactone (Aldactone 25 mg oral tablet) 1 tab(s) by mouth Once a day with a meal Duration: 90 Days Refills: 3 Pickup at [facility] Changed aspirin (aspirin 81 mg oral delayed release tablet) 1 tab(s) by mouth Every day Duration: 90 Days Pickup at [facility] Changed clopidogrel (Plavix 75 mg oral tablet) 1 tab(s) by mouth Once a day Duration: 90 Days Pickup at [facility] Changed furosemide (Lasix 40 mg oral tablet) 1 tab(s) by mouth Once a day Duration: 90 Days Pickup at [facility] Unchanged albuterol (albuterol MDI (90 mcg/ inh) [...] Two (2) times a day Pharmacy Information [facility]: [address], [place] [id number] [phone] Please take this list to your next [...] You should not use spironolactone if you Dupont's disease, high levels of potassium in your blood,if you are unable to urinate, or if [...] condition in which you have too much aldosteronein your body. Aldosterone is a hormone produced by your adrenal glands to help regulate the salt and water balance in your body. Spironolactone may also be used for purposes not listed in this medication guide. What should I discuss with my healthcare provider before taking spironolactone? You should not use spironolactone if you are allergic to it, or if you have: Dupont's disease (an adrenal gland disorder); high levels [...] using this medication even if you feel well.High blood pressure often has no symptoms. You [...] may report side effects to FDA at 0-567-NXS-9498. What other drugs will affect spironolactone? Using [...] drugs may affect spironolactone, including prescription and rplx-uxe-yimxydg medicines, vitamins, and herbal products. Not all [...] to ensure that the information provided by [employer]. ('[employer]') is accurate, up-to-date, and complete, but no guarantee is made to that effect. Drug information contained herein may be time sensitive. [employer] information has been compiled for use by healthcare practitioners and consumers in the [place] and therefore [employer] does not warrant that uses outside of the [place] are appropriate, unless specifically indicated otherwise. [employer] drug information does not endorse drugs, diagnose patients or recommend therapy. [employer] drug information isan informational resource designed to [...] effective or appropriate for any given patient. [facility] does not assume any responsibility for any aspect of healthcare administered with the aid of information [facility] provides. The information contained herein is not intended to cover all possible uses, directions, precautions, warnings, drug interactions, allergic reactions, or adverse effects. If you have questions about the drugs you are taking, check with your doctor, nurse or pharmacist. Copyright 0830-2939 [facility] [employer]. Version: 08.23. Revision Date: 01/04/2020. Education Materials Steps to [...] a prescription, and some you can buy rrtg-yir-zofrkez. Some medicines may contain a drug called [...] tablets as well as websites. Examples include QuitGuide from the CDC and smokefree.gov What things can I do to make it easier to quit? Talk to your family and friends. Ask them to support and encourage you. Call a phone quitline (0-933-XWPMNOW), reach out to support groups, or work [...] quit plan, and talk with your doctor ifyou have any questions or concerns. Summary Smoking [...] 08/05/2010 Document Revised: 12/27/2019 Document Reviewed: 12/28/2019 [employer] Patient Education 2020 [employer]. HEART CATHETERIZATION/PCI (radial) Discharge Instructions DIET Drink [...] Document Reviewed: 10/10/2014 ExitCare Patient Information 2015 Outski. This information is not intended to replace advicegiven to you by your health care provider. Make sure you discuss any questions you have with your health care provider. Additional Information VACCINATE! IT SAVES LIVES! Members of the community who have not yet received the COVID-19 vaccine and would like to receive it can visit one of [facility] vaccine clinics. There are many vaccine clinic locations within the [facility]. For locations and available times, please visit https://[email or web address].[place].gov/. It is important to note that some COVID mobile vaccine clinics are held outdoors and may be canceled in rainy or stormy conditions. To learn more about pediatric vaccinations (ages 5-11), we invite you to visit the [facility] webpage. https://www.[facility].org/pages/1325-Jbbtp-Zxsjybbpaem-Vvibgcvmgr-Wgdvo-Ozg stions.htmlTo learn more about the COVID-19 vaccine, we invite you to visit the CDC website for a list of frequently asked questions.https://www.cdc.gov/coronavirus/2019-ncov/vaccines/faq.html [facility] Patient Portal Access Instructions: Stay connected with your healthcare team and access your personal medical information anytime with the [facility] Patient Portal. Please follow the directions below to create your CellScope account: 1.Access the email account you provided upon registration to the hospital/physician office.2.Look for an invitation email from [facility].3.Open the email and access the invitation link: AcceptInvitation to [facility].4.Fill in the required lr to create your account. To access your account, visit [email or web address]. Click the blue button labeled Access Patient [...] who you will allowto register on the [facility] Patient Portal for access to your information. You can also access the [facility] Patient Portal on the [facility] benitez. Simply click on Patient Portal and then log into your account. If you would like to receive a full copy of your medical records, please contact the [facility] Medical Records Department by calling [phone], Monday through Monday between 8 a.m. and [...] Call your local pharmacy or go to http://[employer]/4B3Vi1e to find one close to you.3.Make use of household items: Use cat litter or old coffee grounds to dispose medications if other options arenot available. Mix your drugs with these household products, seal them in an airtight container andthrow it into the garbage. Call [facility]: [phone] to be sure your drugs can be [...] Patient Education Materials Steps to Quit Smoking, Hpkk-un-Tvww 3- Heart Cath/PCI radial (07/2018)(CUSTOM) Medication Leaflets spironolactone My discharge plan and instructions have been reviewed and explained to me and IDAVE MELODIE Lunderstand my current condition and have read and understand these discharge instructions. I have received a written copy of the plan/instructions. If I have questions, I am aware that I should contact my doctor. Patient/Phlebotomy Program Coordinator Signature: Date/Time: Relationship to Patient: Witness Name/Signature: Date/Time: [id number] Hospital Discharge instructions Patient Education 06/25/2025 12:39:30 Steps to Quit Smoking, Ycvf-fl-Cnky Steps to Quit Smoking Smoking tobacco is [...] a prescription, and some you can buy bbse-uzn-hhcrddl. Some medicines may contain a drug called [...] tablets as well as websites. Examples include QuitGuide from the PocketMobile and smokefree.gov What things can I do to make it easier to quit? Talk to your family and friends. Ask them to support and encourage you. Call a phone quitline (3-217-VDSYNOW), reach out to support groups, or work [...] of your body at a time from headto toe. Notice which parts of your body [...] quit plan, and talk with your doctor ifyou have any questions or concerns. Summary Smoking [...] 08/05/2010 Document Revised: 12/27/2019 Document Reviewed: 12/28/2019 SOLOMO365 Patient Education 2020 AppMyDay. 06/25/2025 12:39:24 3- Heart Cath/PCI radial (07/2018)(CUSTOM) [...] Document Reviewed: 10/10/2014 ExitCare Patient Information 2015 Outski. This information is not intended to replace advicegiven to you by your health care provider. Make sure you discuss any questions you have with your health care provider. Follow Up Care 06/16/2025 05:21:39 With:LUIS CANCHOLA MD Address: [address] [facility] [address] [facility] [place] [address]- When:Within 2 Week(s) With:Cardiac Rehab- [facility] Address: [facility] [address] [address]- When: Unknown Comments:Cardiac rehabilitation is a vital part of your recovery and long-term heart health following your hospital stay. It is a medically supervised exercise and education program designed to improve your physical fitness, manage heart- related risk factors, and support emotional well-being. A cardiac rehab sales floor team leader will contact you soon to schedule your follow-up appointment. If you have any questions please call [phone]. With:[facility], Address:Unknown When:1-2 days Comments:[facility] has been referred to provide your home care services upon discharge; a nurse will contact you upon your return home to arrange for your start of care; please call with any further questions or concerns. With:ALFONSO OZUNA APRN-[facility] Address: [address] [place] [address] [phone] When:1-2 days Comments:Please call the office to schedule a hospital follow up appointment. [facility] 09-03-2025 Cardiology Progress note Subjective Patient seen and examined bedside this morning. Denies any new concerns. Heart cath with PCI to LADyesterday, right radial access looks clean dry and [...] Complete by Nursing Assessment/Plan CAD s/p PCI ([facility] 06/24/2025 -significant LAD disease status post PCI [...] to 35% with wall motion abnormality. Underwent [facility] yesterday showing significant LAD disease with PCI to LAD and moderate disease in LCx, which is recommended to manage medically. Patient tolerated DAPT with aspirin and Plavix. Continue Coreg, Entresto and spironolactone. Okay to be discharged from cardiac standpoint. Digitally Signed by HARSH CEDILLO MD on 06/25/2025 01:39 PM [facility] HospitalSctfjxip53-39-4875 Discharge summary Date of Service 06/25/2025 13:16:26 [...] restenosis); prior EF ~50% with hypokinesis. s/p C 06/24 with PCI DC home 06/25 with DAPT and 3d 10mg prednisone. Followup with PCP and Cardiology Allergies NKA Procedures [facility] Intubation Consults No qualifying data available. Imaging Results and Diagnostics XR Chest 1 View Result Date: June 19, 2025 Verified By: PARISH AGUIRRE DO CLINICAL STATEMENT: IMPRESSION: No acute [...] Extremities: No edema, No cyanosis or clubbing CAR CLERK PULLMAN: Alert, No focal deficits identified. Skin: No [...] prednisone and follow-up outpatient with your primary careand heart doctor Medications New Prescription predniSONE (predniSONE [...] Refills: 2. Follow Up Follow Up with LUIS CANCHOLA MD When:In 2 weeks Where:[address] [facility] [address] [facility] [place] [address]- Follow Up with Cardiac Rehab- [facility] Where:[facility] [address] [place] [address]- Additional Information: Cardiac rehabilitation is a vital part of your recovery and long-term hearthealth following your hospital stay. It is a medically supervised exercise and education program designed to improve your physical fitness, manage heart-related risk factors, and support emotional well-being. A cardiac rehab sales floor team leader will contact you soon to schedule your follow-up appointment. If you have any questions please call [phone]. Follow Up with [facility], When:Within 1-2 days Additional Information: [facility] has been referred to provide your home care services upon discharge; a nurse will contact you upon your return home to arrange for your start of care; please call with any further questions or concerns. Follow Up with ALFONSO OZUNA When:Within 1-2 days Where:[address] [place] [address]- [phone] Additional Information: Please call the office to schedule a hospital follow up appointment. Follow Up Appointments No qualifying data available. Follow Up Labs/Studies Discharge Labs No Follow-up Labs Discharge Studies No Follow-up Studies Discharge Diet No qualifying data available. Discharge Activity No qualifying data available. Condition on Discharge stable Discharge Disposition home Time Spent >30 minutes Digitally Signed by KENNEDY HAMILTON MD on 06/25/2025 01:18 PM [facility] [id number] Note Discharge Instructions Thank you for allowing [facility] to assist you with your healthcare needs. The following is importantdischarge information regarding your hospital visit. Your Care Team ALFONSO OZUNA What to do next Follow Up Appointments Follow Up with LUIS CANCHOLA MD When:In 2 weeks Where:[address] [facility] [place] [address]- Follow Up with Cardiac Rehab- [facility] Where:[facility] [address] [place] [address]- Additional Information: Cardiac rehabilitation is a vital part of your recovery and long-term hearthealth following your hospital stay. It is a medically supervised exercise and education program designed to improve your physical fitness, manage heart-related risk factors, and support emotional well-being. A cardiac rehab sales floor team leader will contact you soon to schedule your follow-up appointment. If you have any questions please call [phone]. Follow Up with [facility], When:Within 1-2 days Additional Information: [facility] has been referred to provide your home care services upon discharge; a nurse will contact you upon your return home to arrange for your start of care; please call with any further questions or concerns. Follow Up with ALFONSO OZUNA When:Within 1-2 days Where:[place] [address]- [phone] Additional Information: Please call the office to [...] Duration: 90 Days Refills: 3 Pickup at [facility] Changed aspirin (aspirin 81 mg oral delayed release tablet) 1 tab(s) by mouth Every day Duration: 90 Days Pickup at [facility] Changed clopidogrel (Plavix 75 mg oral tablet) 1 tab(s) by mouth Once a day Duration: 90 Days Pickup at [facility] Changed furosemide (Lasix 40 mg oral tablet) 1 tab(s) by mouth Once a day Duration: 90 Days Pickup at [facility] Unchanged albuterol (albuterol MDI (90 mcg/ inh) [...] Two (2) times a day Pharmacy Information [facility]: [address], [place] [id number] [phone] Please take this list to your next [...] You should not use spironolactone if you Dupont's disease, high levels of potassium in your blood,if you are unable to urinate, or if [...] condition in which you have too much aldosteronein your body. Aldosterone is a hormone produced by your adrenal glands to help regulate the salt and water balance in your body. Spironolactone may also be used for purposes not listed in this medication guide. What should I discuss with my healthcare provider before taking spironolactone? You should not use spironolactone if you are allergic to it, or if you have: Dupont's disease (an adrenal gland disorder); high levels [...] using this medication even if you feel well.High blood pressure often has no symptoms. You [...] may report side effects to FDA at 8-911-EVP-1293. What other drugs will affect spironolactone? Using [...] drugs may affect spironolactone, including prescription and sxby-ylm-frudtvj medicines, vitamins, and herbal products. Not all [...] to ensure that the information provided by PageScience. ('Multum') is accurate, up-to-date, and complete, but no guarantee is made to that effect. Drug information contained herein may be time sensitive. [employer] information has been compiled for use by healthcare practitioners and consumers in the [place] and therefore [employer]arman[employer] does not warrant that uses outside of the [place] are appropriate, unless specifically indicated otherwise. [employer]s drug information does not endorse drugs, diagnose patients or recommend therapy. DevZuzs drug information isan informational resource designed to [...] effective or appropriate for any given patient. [employer] does not assume any responsibility for any aspect of healthcare administered with the aid of information [employer]arman[employer] provides. The information contained herein is not intended to cover all possible uses, directions, precautions, warnings, drug interactions, allergic reactions, or adverse effects. If you have questions about the drugs you are taking, check with your doctor, nurse or pharmacist. Copyright 8466-3820 PageScience. Version: .. Revision Date: 01/04/2020. Education Materials [...] a prescription, and some you can buy brpq-cnp-sudzfca. Some medicines may contain a drug called [...] tablets as well as websites. Examples include QuitGuide from the PocketMobile and smokefree.gov What things can I do to make it easier to quit? Talk to your family and friends. Ask them to support and encourage you. Call a phone quitline (9-056-NHXTNOW), reach out to support groups, or work [...] quit plan, and talk with your doctor ifyou have any questions or concerns. Summary Smoking [...] 08/05/2010 Document Revised: 12/27/2019 Document Reviewed: 12/28/2019 SOLOMO365 Patient Education 2020 AppMyDay. HEART CATHETERIZATION/PCI (radial) Discharge Instructions DIET Drink [...] Document Reviewed: 10/10/2014 ExitCare Patient Information 2015 Outski. This information is not intended to replace advicegiven to you by your health care provider. Make sure you discuss any questions you have with your health care provider. Additional Information VACCINATE! IT SAVES LIVES! Members of the community who have not yet received the COVID-19 vaccine and would like to receive it can visit one of [facility] vaccine clinics. There are many vaccine clinic locations within the [facility]. For locations and available times, please visit https://[email or web address].[place].gov/. It is important to note that some COVID mobile vaccine clinics are held outdoors and may be canceled in rainy or stormy conditions. To learn more about pediatric vaccinations (ages 5-11), we invite you to visit the [facility] webpage. https://www.[facility]ss.org/pages/3621-Lyweq-Yuspnyphyrc-Ucxlxdfojy-Robrm-Cny stions.htmlTo learn more about the COVID-19 vaccine, we invite you to visit the CDC website for a list of frequently asked questions.https://www.cdc.gov/coronavirus/2019-ncov/vaccines/faq.html [facility] Patient Portal Access Instructions: Stay connected with your healthcare team and access your personal medical information anytime with the [facility] Patient Portal. Please follow the directions below to create your [facility]Scope account: 1.Access the email account you provided upon registration to the hospital/physician office.2.Look for an invitation email from [facility].3.Open the email and access the invitation link: AcceptInvitation to [facility].4.Fill in the required lr to create your account. To access your account, visit [email or web address]. Click the blue button labeled Access Patient [...] who you will allowto register on the [facility] Patient Portal for access to your information. You can also access the [facility] One[facility] Patient Portal on the [facility] benitez. Simply click on Patient Portal and then log into your account. If you would like to receive a full copy of your medical records, please contact the [facility] Medical Records Department by calling [phone], Monday through Monday between 8 a.m. and [...] Call your local pharmacy or go to http://[employer]/8A1Eb4b to find one close to you.3.Make use of household items: Use cat litter or old coffee grounds to dispose medications if other options arenot available. Mix your drugs with these household products, seal them in an airtight container andthrow it into the garbage. Call [facility]: [phone] to be sure your drugs can be [...] Patient Education Materials Steps to Quit Smoking, Ocvf-lj-Kopm 3- Heart Cath/PCI radial (07/2018)(CUSTOM) Medication Leaflets spironolactone My discharge plan and instructions have been reviewed and explained to me and I,ZABRINA HSU my current condition and have read and understand these discharge instructions. I have received a written copy of the plan/instructions. If I have questions, I am aware that I should contact my doctor. Patient/Phlebotomy Program Coordinator Signature: Date/Time: Relationship to Patient: Witness Name/Signature: Date/Time: [facility] [id number] Note* Exam Date Time Procedure Performing Provider Status 06/24/25 6:43 PM Electrocardiogram - EKG - CV MARY BERNAL MD; Auth (Verified) ECG Final Report SINUS RHYTHM LOW VOLTAGE, EXTREMITY LEADS NONSPECIFIC T ABNRM, ANTEROLATERAL LEADS Electronic Signature: OWEN BERNAL MD 06/25/2025 11:40:06 [facility] [id number] Cardiology Progress note Date of Service 06/24/2025 [...] JESUSITA SOARES MD on 06/24/2025 02:13 PM [facility] HospitalIufwvpal22-04-3343 Cardiology Progress note Date of Service 06/24/25 [facility] Significant LAD disease s/p PCI Aspirin and Plavix Residual Left CRx disease for medical management Digitally Signed by CLAUDE MEADOWS MD on 06/24/2025 03:34 PM [facility] [id number] Cardiology Progress note Date of Service 06/24/2025 [...] JESUSITA SOARES MD on 06/24/2025 02:13 PM [facility] HospitalLfacgrvp34-09-2465 Note Date of Service 06/24/25 Chief Complaint [...] Result Date: June 19, 2025 Verified By: PARISH AGUIRRE DO CLINICAL STATEMENT: IMPRESSION: No acute [...] lab service, Stop date 06/24/25 8:05:00 EDT, [id number] .Neutro Absolute, Timed Study (collect at specified time), Blood, Once, Preferred Lab: Other lab service, Stop date 06/24/25 8:05:00 EDT, [id number] APTT, 06/24/25 8:00:00 EDT, Timed Study (collect [...] Midnight, 06/23/25 23:58:00 EDT, Constant Order, For [facility] on Sunday 06/24 NSTEMI (peak troponin 1085) [...] systolic; continue losartan and carvedilol. Goal <130/80 bobj developer, but avoid rapid inpatient lowering. Lipids Rosuvastatin [...] patch 14 mg daily with lozenges PRN. 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 Renal function Cr 1.0, BUN 19, [...] Spent Greater than 35 minutes were spent idot-jy-tufn with the patient +/- family during this encounter and >50% was spent on counseling and coordination of care. Digitally Signed by PAPI BAXTER MD on 06/24/2025 08:54 PM [facility] HospitalEacnucni20-30-1741 Note Date of Service 06/23/25 Chief Complaint [...] Result Date: June 19, 2025 Verified By: PARISH AGUIRRE DO CLINICAL STATEMENT: IMPRESSION: No acute [...] Midnight, 06/22/25 23:58:00 EDT, Constant Order, For [facility] on Monday (06/23/25) NSTEMI (peak hs-troponin 1085) [...] mg daily before discharge if hemodynamically stable; sexual assault counsellor on sick-day rules and euglycemic DKA risk [...] recent anti-Xa/aPTT within target prior to transport; seed analysis laboratory assistant will manage periprocedural anticoagulation dosing. PT recommends [...] Spent Greater than 35 minutes were spent botr-pa-gohk with the patient +/- family during this encounter and >50% was spent on counseling and coordination of care. Digitally Signed by PAPI BAXTER MD on 06/23/2025 08:03 PM [facility] [id number] Note Date of Service 06/22/25 Chief Complaint [...] Result Date: June 19, 2025 Verified By: PARISH AGUIRRE DO CLINICAL STATEMENT: IMPRESSION: No acute [...] Spent Greater than 35 minutes were spent kvmn-lx-nkny with the patient +/- family during this encounter and >50% was spent on counseling and coordination of care. Digitally Signed by PAPI BAXTER MD on 06/22/2025 04:42 PM [facility] HospitalMsxzsilv94-09-1674 Note. MICRO - Microbiology PROCEDURE: Blood Culture [...] Locations *1: This test was performed at: [address], [facility] [id number] Note. MICRO - Microbiology PROCEDURE: Blood Culture [...] Locations *1: This test was performed at: [address], [facility] [id number] Note. MICRO - Microbiology PROCEDURE: Blood Culture [...] Locations *1: This test was performed at: [address], [address] [place] [address] [id number] Note. MICRO - Microbiology PROCEDURE: Blood Culture [...] Locations *1: This test was performed at: [address], [address] [place], [place] [id number] Nurse Progress note Patient is alert and oriented 4 but forgetful. She is aware of how to disable bed alarms and was wearing nonslip socks at the time of the incident. The respiratory therapist encountered the patient ambulating unassisted, senior care to the bathroom, tugging on her IV [...] and updated regarding the incident. The community relations police lieutenant was also notified via email. Patient was monitored closely following the event. Digitally Signed by Matthieu Blake RN on 06/21/2025 07:41 AM [facility] [id number] Cardiology Consult note Date of Service 06/16/2025 [...] right atrial pressure is 8 mm Hg. [facility] 08/2023: SUMMARY: 1. Left ventricle: Systolic function [...] Problem List/Past Medical History Ongoing CAD in [place] artery Cardiomyopathy Hypertension Mitral valve regurgitation Syncope [...] MELANIE CLEMONS DO on 06/16/2025 04:25 PM [facility] [id number] Note Date of Service 06/20/2025 ICU Day [...] COPD transfer for pulmonary and hospital [facility]. Vitals BP 114/67, MAP 83, HR 110, [...] exacerbation of COPD (emphysematous) and transferred to [facility]. Current vent settings FiO2 40%, tidal [...] Event Name Event Result Date/Time WBC 6.4 10^3/mcL 06/20/25 02:11:00 WBC 5.8 10^3/mcL 06/19/25 02:59:00 WBC 6.9 10^3/mcL 06/18/25 03:51:00 WBC 9 10^3/mcL 06/17/25 06:47:00 Hgb 11.1 G/dL Low 06/20/25 02:11:00 Hgb 11.3 G/dL Low 06/19/25 02:59:00 Hgb 11 G/dL Low 06/18/25 03:51:00 Hgb 10.9 G/dL Low 06/17/25 06:47:00 Hct 33 % Low 06/20/25 02:11:00 Hct 33.7 % Low 06/19/25 02:59:00 Hct 33 % Low 06/18/25 03:51:00 Hct 32.8 % Low 06/17/25 06:47:00 Platelet 290 10^3/mcL 06/20/25 02:11:00 Platelet 272 10^3/mcL 06/19/25 02:59:00 Platelet 268 10^3/mcL 06/18/25 03:51:00 Platelet 240 10^3/mcL 06/17/25 06:47:00 APTT 67.1 seconds [facility] 06/20/25 01:39:00 APTT 52.6 seconds [facility] 06/19/25 17:01:00 APTT 73.6 seconds [facility] 06/19/25 08:44:00 APTT 65.1 seconds [facility] 06/19/25 02:59:00 APTT 68.1 seconds [facility] 06/18/25 19:45:00 APTT 40.6 seconds [facility] 06/18/25 08:41:00 APTT 51.7 seconds [facility] 06/18/25 03:51:00 APTT 46.8 seconds [facility] 06/17/25 20:40:00 APTT 40.2 seconds [facility] 06/17/25 12:38:00 APTT 54.3 seconds [facility] 06/17/25 06:47:00 Glucose Level 116 mg/dL [facility] 06/20/25 02:11:00 Glucose Level 156 mg/dL [facility] 06/19/25 20:49:00 Glucose Level 139 mg/dL [facility] 06/19/25 02:59:00 Glucose Level 145 mg/dL [facility] 06/18/25 03:51:00 Glucose Level 106 mg/dL 06/17/25 06:47:00 Sodium Level 139 mEq/L 06/20/25 02:11:00 Sodium Level 140 mEq/L 06/19/25 20:49:00 Sodium Level 149 mEq/L [facility] 06/19/25 02:59:00 Sodium Level 143 mEq/L [...] 28 mEq/L 06/17/25 06:47:00 BUN 42 mg/dL [facility] 06/20/25 02:11:00 BUN 39 mg/dL High 06/19/25 [...] made changes in the sections as needed. Philippe Zaragoza M.D., [facility] High degree of medical complexity noted in [...] on 06/20/2025 12:04 PM Digitally Signed by PHILIPPE ZARAGOZA MD on 06/20/2025 12:58 PM [id number] Note* Exam Date Time Procedure Performing Provider Status 06/19/25 6:40 PM Electrocardiogram - EKG - CV JAIRO LIMA MD; Auth (Verified) ECG Final Report Wandering atrial pacemaker Left ventricular hypertrophy Prolonged QT interval Electronic Signature: JAIRO PÉREZ MD 06/20/2025 16:26:25 [id number] Note Date of Service 06-19-2025 ICU Day [...] COPD transfer for pulmonary and hospital [facility]. Vitals BP 114/67, MAP 83, HR 110, [...] exacerbation of COPD (emphysematous) and transferred to [facility]. Current vent settings FiO2 40%, tidal [...] 06:47:00 WBC 12.1 10^3/mcL High 06/16/25 17:09:00 Hgb 11.3 G/dL Low 06/19/25 02:59:00 Hgb 11 G/dL Low 06/18/25 03:51:00 Hgb 10.9 G/dL Low 06/17/25 06:47:00 Hgb 11.3 G/dL Low 06/16/25 17:09:00 Hct 33.7 % Low 06/19/25 02:59:00 Hct 33 % Low 06/18/25 03:51:00 Hct 32.8 % Low 06/17/25 06:47:00 Hct 34.3 % 06/16/25 17:09:00 Platelet 272 10^3/mcL 06/19/25 02:59:00 Platelet 268 10^3/mcL 06/18/25 03:51:00 Platelet 240 10^3/mcL 06/17/25 06:47:00 Platelet 263 10^3/mcL 06/16/25 17:09:00 APTT 73.6 seconds [facility] 06/19/25 08:44:00 APTT 65.1 seconds [facility] 06/19/25 02:59:00 APTT 68.1 seconds [facility] 06/18/25 19:45:00 APTT 40.6 seconds [facility] 06/18/25 08:41:00 APTT 51.7 seconds [facility] 06/18/25 03:51:00 APTT 46.8 seconds [facility] 06/17/25 20:40:00 APTT 40.2 seconds [facility] 06/17/25 12:38:00 APTT 54.3 seconds [facility] 06/17/25 06:47:00 APTT 71.7 seconds [facility] 06/16/25 23:54:00 APTT 33.8 seconds 06/16/25 17:09:00 Protime 14.4 seconds 06/16/25 17:09:00 PT International Ratio 1.2 ratio 06/16/25 17:09:00 Glucose Level 139 mg/dL [facility] 06/19/25 02:59:00 Glucose Level 145 mg/dL [facility] 06/18/25 03:51:00 Glucose Level 106 mg/dL 06/17/25 06:47:00 Sodium Level 149 mEq/L [facility] 06/19/25 02:59:00 Sodium Level 143 mEq/L [...] 28 mEq/L 06/17/25 06:47:00 BUN 32 mg/dL High 06/19/25 02:59:00 BUN 32 mg/dL High 06/18/25 03:51:00 BUN 30 mg/dL High 06/17/25 06:47:00 Creatinine Lvl (s) 0.87 mg/dL [...] well she can be transferred to the stepdown today. 9. Cardiology will follow-up regarding potential [...] made changes in the sections as needed. Philippe Zaragoza M.D., [facility] High degree of medical complexity noted in [...] on 06/19/2025 12:29 PM Digitally Signed by PHILIPPE ZARAGOZA MD on 06/19/2025 01:04 PM [facility] [id number] Note* Exam Date Time Procedure Performing Provider Status 06/19/25 7:59 AM XR Chest 1 View PARISH AGUIRRE DO; [facility] (Verified) [id number] ORIGINAL EXAMINATION: ONE XRAY VIEW OF THE [...] No acute radiographic findings. Emphysema Interpreted by: Parish Aguirre Preliminary Report By: Parish Aguirre Electronically signed By Parish Aguirre Dictated Date: 06/19/2025 8:05:30 AM Prelim Date: 06/19/2025 8:06:42 AM Sign Date: 06/19/2025 8:06:42 AM Ordering Provider: ADRIANA WEAVER [id number] Note* Exam Date Time Procedure Performing Provider Status 06/18/25 11:16 AM Electrocardiogram - EKG - CV JAIRO MARTINS MD; Auth (Verified) ECG Final Report Sinus rhythm Multiple premature complexes, vent & supraven Anterior infarct, age indeterminate Lateral leads are also involved Electronic Signature: JAIRO PÉREZ MD 06/19/2025 16:18:13 [facility] [id number] Note. MICRO - Microbiology PROCEDURE: Culture Respiratory [...] Locations *1: This test was performed at: [facility], [address] [place] [address], [address]- , [facility]08-27-2025 Note* Exam Date Time Procedure Performing Provider Status 06/18/25 6:44 AM XR Chest 1 View GENARO NO MD; Auth (Verified) [id number] ORIGINAL EXAMINATION: ONE XRAY VIEW OF THE [...] Sign Date: 06/18/2025 7:12:41 AM Ordering Provider: [facility]08-27-2025 Note Date of Service 06-18-2025 ICU [...] COPD transfer for pulmonary and hospital [facility]. Vitals BP 114/67, MAP 83, HR 110, [...] exacerbation of COPD (emphysematous) and transferred to [facility]. Current vent settings FiO2 40%, tidal [...] congestion ross. 5. In negative balance of 1873. 6. Tolerating spontaneous breathing trial this morning [...] 9 10^3/mcL 06/17/25 06:47:00 WBC 12.1 10^3/mcL [facility] 06/16/25 17:09:00 WBC 20.2 10^3/mcL [facility] 06/16/25 10:25:00 Hgb 11 G/dL Low 06/18/25 [...] 297 10^3/mcL 06/16/25 10:25:00 APTT 51.7 seconds [facility] 06/18/25 03:51:00 APTT 46.8 seconds [facility] 06/17/25 20:40:00 APTT 40.2 seconds [facility] 06/17/25 12:38:00 APTT 54.3 seconds [facility] 06/17/25 06:47:00 APTT 71.7 seconds [facility] 06/16/25 23:54:00 APTT 33.8 seconds 06/16/25 17:09:00 Protime 14.4 seconds 06/16/25 17:09:00 PT International Ratio 1.2 ratio 06/16/25 17:09:00 Glucose Level 145 mg/dL [facility] 06/18/25 03:51:00 Glucose Level 106 mg/dL 06/17/25 [...] remains guarded 34 minutes Critical Care time Philippe Zaragoza M.D., [facility] High degree of medical complexity noted in [...] on 06/18/2025 11:56 AM Digitally Signed by PHILIPPE ZARAGOZA MD on 06/18/2025 12:13 PM [facility] [id number] Note* Exam Date Time Procedure Performing Provider Status 06/17/25 6:53 AM XR Chest 1 View GENARO NO MD; Auth (Verified) [id number] ORIGINAL EXAMINATION: ONE XRAY VIEW OF THE [...] Date: 06/17/2025 6:58:17 AM [facility]ing [facility] [id number] Note Date of Service 06-17-2025 ICU Day 2 Significant Comorbidities/Current Illness 70-year-old female with history of CAD status post PCI to RCA in , cardiomyopathy (thought to be Takotsubo cardiomyopathy), COPD, bipolar, tobacco use, GERD, anxiety, depression, history of suicide attempt in 2010. Presented to [facility] with COPD exacerbation. developed hypoxic respiratory failure requiring intubation and mechanical ventilation and COPD transfer for pulmonary and hospital At [facility]. Vitals BP 114/67, MAP 83, HR 110, [...] AG 17, T. bili 0.7, ALT 104. D-dimer 5358. Lactate 3.9, NTproBNP 4094. Troponin elevation at 217 282. Patient intubated at 0430 hrs. on 2024. With a 7.5 endotracheal tube. (Succinylcholine). ET tube placement confirmed by chest x-ray. Diagnoses of acut e respiratory failure hypoxemia and acute exacerbation of COPD (emphysematous) and [facility]. Current vent settings FiO2 40%, tidal volume 400, respiratory 18, PEEP of 5. 24 Hour Summary 1- Seen by Cardiology, we consulted them for type 2 Heart block and positive trending trops, they advised as follows, When LFT resolve, start high dose statin and for potential LHC with patient when extubated and to discuss compliance with DAPT potentially Echo 8/25/25 done resulting, Left ventricle wall thickness is [...] & SBI 143, RR 31, and tidal vglsam707. Minute volume was 5.9. 4-collateral history obtained [...] as needed. 34 minutes Critical Care time Philippe Zaragoza M.D., [facility] High degree of medical complexity noted in [...] on 06/17/2025 12:25 PM Digitally Signed by PHILIPPE ZARAGOZA MD on 06/17/2025 12:37 PM [facility] HospitalGybnvcgi81-66-0307 Note* Exam Date Time Procedure Performing Provider Status 06/16/25 4:12 PM Electrocardiogram - EKG - CV JAIRO LIAM MD; Auth (Verified) ECG Final Report Sinus rhythm Atrial premature complex Anterior infarct, age indeterminate Prolonged QT interval Electronic Signature: JAIRO PÉREZ MD 06/17/2025 20:33:19 [facility] HospitalBiimzfdu05-49-4519 Pastoral care Progress note Pastoral Care Note [...] by Krystian Adams on 06/16/2025 04:08 PM [facility] HospitalWahjbblw61-76-0165 Cardiology Consult note Date of Service 06/16/2025 [...] right atrial pressure is 8 mm Hg. [facility] 08/2023: SUMMARY: 1. Left ventricle: Systolic function [...] Problem List/Past Medical History Ongoing CAD in [place] artery Cardiomyopathy Hypertension Mitral valve regurgitation Syncope [...] MELANIE CLEMONS DO on 06/16/2025 04:25 PM [facility] [id number] Evaluation + Plan noteExtracted from: Title:History and [...] as needed. 34 minutes Critical Care time Philippe Zaragoza M.D., [facility] High degree of medical complexity noted in this patient with review of external notes and results of tests, ordering of new tests, and an independent review of the patient. I reviewed tests ordered by other physicians and reviewed my assessment with other health care providers. Future Scheduled Tests Laboratory* Basic Metabolic Panel 03/13/25 [facility] 08-25-2025 Note* Exam Date Time Procedure Performing Provider Status 06/16/25 1:35 PM Electrocardiogram - EKG - CV JAIRO LIMA MD; Auth (Verified) ECG Final Report WANDERING ATRIAL PACEMAKER Consider left ventricular hypertrophy Inferior infarct, old Prolonged QT interval Electronic Signature: JAIRO PÉREZ MD 06/17/2025 20:33:08 [facility] HospitalLzcsfeqm04-51-3996 Note* Exam Date Time Procedure Performing Provider Status 06/16/25 1:27 PM Echocardiogram, Adult - CV JAIRO BEJARANO MD; Auth (Verified) [facility] HospitalCmvxwnfw88-55-8931 Note. MICRO - Microbiology PROCEDURE: Legionella Urine [...] Locations *1: This test was performed at: [address], [address]- , [facility]08-25-2025 Note. MICRO - Microbiology PROCEDURE: Streptococcus [...] Locations *1: This test was performed at: [address], [address]- , [facility]08-25-2025 Note* Exam Date Time Procedure Performing Provider Status 06/16/25 11:30 AM VL Venous US/Doppler Both Legs(for DVT) EMILIO AVILES MD; Auth (Verified) [facility] [id number] Note* Exam Date Time Procedure Performing Provider Status 06/16/25 10:36 AM XR Chest 1 View ARANZA REDDY MD; [facility] (Verified) [id number] ORIGINAL EXAMINATION: ONE XRAY VIEW OF THE [...] 10:44:49 AM Ordering Provider: VANDANA DOS SANTOS [facility] HospitalPmkaumpu61-97-9981 History and physical note Date of Service 06/16/2025 Chief Complaint Transferred from [facility] History of Present Illness This is 70-year-old [...] COPD transfer for pulmonary and hospital [facility]. Vitals BP 114/67, MAP 83, HR 110, [...] exacerbation of COPD (emphysematous) and transferred to [facility]. Current vent settings FiO2 40%, tidal [...] as needed. 34 minutes Critical Care time Philippe Zaragoza M.D., [facility] High degree of medical complexity noted in this patient with review of external notes and results of tests, ordering of new tests, and an independent review of the patient. I reviewed tests ordered by other physicians and reviewed my assessment with other health care providers. Problem List/Past Medical History Ongoing CAD in [place] artery Cardiomyopathy Hypertension Mitral valve regurgitation Syncope [...] on 06/16/2025 02:34 PM Digitally Signed by PHILIPPE ZARAGOZA MD on 06/16/2025 02:49 PM Digitally Signed by VANDANA DOS SANTOS MD on 06/16/2025 03:41 PM [facility] HospitalDdgqyonx01-77-0800 Note. MICRO - Microbiology PROCEDURE: Blood Culture (bacterial) [*1] SOURCE: Blood BODY SITE: COLLECTED DATE/TIME: 11/04/2024 05:15 EST RECEIVED DATE/TIME: 11/04/2024 15:48 EST START DATE/TIME: 11/04/2024 15:49 EST FREE TEXT SOURCE: M/R 91397; lab 23598; [id number] FINAL REPORTS Final Report [] Verified Date/Time/Personnel: 11/09/2024 15:59 EST Blood Culture: No Growth at 5 days. PRELIMINARY REPORTS Preliminary Report [] Verified Date/Time/Personnel: 11/04/2024 16:59 EST Culture has been received in lab and is no growth to date. Routine cultures are held for 5 days. Performing Locations *1: This test was performed at: [facility], [address] [place] [address], [address]- , [facility]01-18-2025 Note. MICRO - Microbiology PROCEDURE: Blood Culture (bacterial) [*1] SOURCE: Blood BODY SITE: COLLECTED DATE/TIME: 11/04/2024 05:45 EST RECEIVED DATE/TIME: 11/04/2024 15:45 EST START DATE/TIME: 11/04/2024 15:46 EST FREE TEXT SOURCE: M/R 02107; lab 32749; [id number] FINAL REPORTS Final Report [] Verified Date/Time/Personnel: 11/09/2024 15:59 EST Blood Culture: No Growth at 5 days. PRELIMINARY REPORTS Preliminary Report [] Verified Date/Time/Personnel: 11/04/2024 16:59 EST Culture has been received in lab and is no growth to date. Routine cultures are held for 5 days. Performing Locations *1: This test was performed at: [address] [id number] Note. MICRO - Microbiology PROCEDURE: Blood Culture [...] Locations *1: This test was performed at: [address], [address] [place] [address] [id number] Note. MICRO - Microbiology PROCEDURE: Blood Culture [...] Locations *1: This test was performed at: [facility], [address] [place] [address], [facility]- , [facility]01-18-2025 Discharge summary Date of Service 11/09/2024 Discharge [...] and depression who presented as transfer from [facility] with acute respiratory failure requiring intubation. Initial saturation on 4 L nasal cannula was 70%. Lactic acid was elevated at 4.6. She initially went to ER at [facility] with shortness of breath and wheezing. At the previous hospital patient was thought to have A-fib with RVR and she was started on Cardizem drip, and route patient was in normal sinus rhythm, and in [facility] patient was always in normal sinus rhythm, upon reviewing the EKG that was done in [facility],I do have a suspicion that the patient [...] Up Follow Up with Mahnaz Moore for [facility], report to [phone] When:Within 1-2 days Follow Up with ALFONSO ZOUNA When:Within 1-2 days Where:[facility] [place] [address]- [phone] Business (1) Follow Up Appointments Transfer of [...] Time Spent 33 min Digitally Signed by MERCEDES CARTER MD on 11/09/2024 01:12 PM [facility] HospitalIckvefla98-87-4476 Hospital Discharge instructions Patient Education 11/09/2024 10:15:52 [...] breathing. Follow these instructions at home: Take gshl-vep-dpoxwci and prescription medicines only as told by [...] 10/14/2014 Document Revised: 09/21/2018 Document Reviewed: 04/26/2017 SOLOMO365 Patient Education 2020 AppMyDay. Follow Up Care 11/04/2024 07:53:19 With:Mahnaz Moore for skilled care, report to [phone] Address:Unknown When:1-2 days With:ALFONSO OZUNA Address: [address] [place] [address] [phone] Business (1) When:1-2 days [facility] 01-18-2025 Note Discharge Instructions Thank you for allowing [facility] to assist you with your healthcare needs. The following is importantdischarge information regarding your hospital visit. 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 What to do next Scheduled Follow-Up Appointments Appointment Type When With Where Contact Information [facility] Follow Up 12/06/2024 03:30 PM EST [facility] Follow Up Appointments Follow Up with Mahnaz Moore for skilled care, report to [phone] When:Within 1-2 days Follow Up with ALFONSO OZUNA When:Within 1-2 days Where:[address] [place] [address] [phone] Business (1) The Following Activity and Diet [...] Transfer of Care Prognosis - Ordered -- Alan, Patient Aware: Yes Transfer of Care Rehab Potential - Ordered -- Rehab potential alan, 11/09/24 10:00:43 EST Someone Will Contact You [...] breathing. Follow these instructions at home: Take lrfm-dxh-ztykpir and prescription medicines only as told by [...] 10/14/2014 Document Revised: 09/21/2018 Document Reviewed: 04/26/2017 SOLOMO365 Patient Education 2020 AppMyDay. Additional Information VACCINATE! IT SAVES LIVES! Members of the community who have not yet received the COVID-19 vaccine and would like to receive it can visit one of [facility] vaccine clinics. There are many vaccine clinic locations within the [facility]. For locations and available times, please visit https://[email or web address].[place].gov/. It is important to note that some COVID mobile vaccine clinics are held outdoors and may be canceled in rainy or stormy conditions. To learn more about pediatric vaccinations (ages 5-11), we invite you to visit the [facility] webpage. https://www.[facility].org/pages/4314-Xhjra-Vjuzwupyhub-Czslrfowmm-Pfins-Qqc stions.htmlTo learn more about the COVID-19 vaccine, we invite you to visit the CDC website for a list of frequently asked questions.https://www.cdc.gov/coronavirus/2019-ncov/vaccines/faq.html [facility] [employer] Patient Portal Access Instructions: Stay connected with your healthcare team and access your personal medical information anytime with the [facility] Patient Portal. Please follow the directions below to create your [employer] account: 1.Access the email account you provided upon registration to the hospital/physician office.2.Look for an invitation email from [facility].3.Open the email and access the invitation link: AcceptInvitation to [facility].4.Fill in the required lr to create your account. To access your account, visit [email or web address]. Click the blue button labeled Access Patient [...] who you will allowto register on the [facility] Patient Portal for access to your information. You can also access the [facility] Patient Portal on the [facility] benitez. Simply click on Patient Portal and then log into your account. If you would like to receive a full copy of your medical records, please contact the [facility] Medical Records Department by calling [phone], Monday through Monday between 8 a.m. and [...] Call your local pharmacy or go to http://[employer]/9C0Hk5y to find one close to you.3.Make use of household items: Use cat litter or old coffee grounds to dispose medications if other options arenot available. Mix your drugs with these household products, seal them in an airtight container andthrow it into the garbage. Call [facility]: [phone] to be sure your drugs can be [...] aware that I should contact my doctor. Patient/Phlebotomy Program Coordinator Signature: Date/Time: Relationship to Patient: Witness Name/Signature: Date/Time: [facility] HospitalCszwjihe83-05-8293 Note Discharge Instructions Thank you for allowing [facility] to assist you with your healthcare needs. The following is importantdischarge information regarding your hospital visit. 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 What to do next Scheduled Follow-Up Appointments Appointment Type When With [facility] 12/06/2024 03:30 PM [facility] Confirmed Follow Up Appointments Follow Up with Mahnaz Moore for skilled care, report to [phone] When:Within 1-2 days Follow Up with ALFONSO OZUNA When:Within 1-2 days Where:[address] [place] [address] [phone] Business (1) The Following Activity and Diet [...] to receive it can visit one of [facility] vaccine clinics. There are many vaccine clinic locations within the [facility]. For locations and available times, please visit https://[email or web address].[place].gov/. It is important to note that some COVID mobile vaccine clinics are held outdoors and may be canceled in rainy or stormy conditions. To learn more about pediatric vaccinations (ages 5-11), we invite you to visit the [facility] webpage. https://www.[facility].org/pages/1560-Jfhnz-Kdvygcpwyuv-Ixdqiwjaep-Vljjh-Qqy stions.htmlTo learn more about the COVID-19 vaccine, we invite you to visit the CDC website for a list of frequently asked questions.https://www.cdc.gov/coronavirus/2019-ncov/vaccines/faq.html [facility] Patient Portal Access Instructions: Stay connected with your healthcare team and access your personal medical information anytime with the [facility] Patient Portal. Please follow the directions below to create your [facility] [employer] account: 1.Access the email account you provided upon registration to the hospital/physician office.2.Look for an invitation email from [facility].3.Open the email and access the invitation link: AcceptInvitation to [facility].4.Fill in the required lr to create your account. To access your account, visit [employer]. Click the blue button labeled Access Patient Portal and then log in with the username and password that you created in the steps above. You will be able to view your test results, lab results, a summary of your visits, upcoming appointments and more. There is also a convenient messaging option where you can send secure messages to your [email or web address]. In addition, you will have the ability to download any documents or summaries to your computer and/or send the information securely to a physician. Remember that your healthcare information is confidential, so carefully consider who you will allowto register on the [facility] Patient Portal for access to your information. You can also access the [facility] Patient Portal on the [facility] benitez. Simply click on Patient Portal and then log into your account. If you would like to receive a full copy of your medical records, please contact the [facility] Medical Records Department by calling [phone], Monday through Monday between 8 a.m. and [...] Call your local pharmacy or go to http://[employer]/9S6Wk1d to find one close to you.3.Make use of household items: Use cat litter or old coffee grounds to dispose medications if other options arenot available. Mix your drugs with these household products, seal them in an airtight container andthrow it into the garbage. Call [facility]: [phone] to be sure your drugs can be [...] been reviewed and explained to me and IDAVE MELODIE Lunderstand my current condition and have read and understand these discharge instructions. I have received a written copy of the plan/instructions. If I have questions, I am aware that I should contact my doctor. Patient/Phlebotomy Program Coordinator Signature: Date/Time: Relationship to Patient: Witness Name/Signature: Date/Time: [facility] HospitalJbcqslmf81-46-1806 Respiratory therapy Hospital Progress note Respiratory Therapy [...] by DESHAWN Hill on 11/09/2024 07:30 AM [facility] HospitalVbifakkz93-41-0289 Note Subjective: Patient seen for pneumonia versus [...] 08 06:19)L 54(NOV 07 23:30)70(NOV 08 06:19) BGH947(NOV 08 14:34)L 87(NOV 08 11:03)H 198(NOV 08 [...] mg 2 mL, IV Push, q4h Signature: Mercedes Carter MD Digitally Signed by MERCEDES CARTER MD on 11/08/2024 03:14 PM [facility] HospitalQrvcucba15-67-3002 Note Date of Service 11/07/23 Subjective This is ICU day #4 for Marcela, a 69-year-old female past medical history coronary artery disease status post stenting in the , 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 Initial saturation on 4 L nasal cannula was 70%. Lactic acid was elevated at 4.6. She initially went to ER at [facility] with shortness of breath and wheezing. She [...] EMILIO DERAS MD on 11/07/2024 11:10 AM [id number] Consult note Date of Service 11/05/2024 Reason [...] Problem List/Past Medical History Ongoing CAD in [place] artery Cardiomyopathy Procedure/Surgical History Echocardiogram: 09/04/23 Cardiac [...] JACQUELINE FAUSTIN DPM on 11/05/2024 05:02 PM [id number] Note* Exam Date Time Procedure Performing Provider Status 11/07/24 6:39 AM XR Chest 1 View GENARO NO MD; Auth (Verified) [id number] ORIGINAL EXAMINATION: ONE XRAY VIEW OF THE [...] 11/07/2024 6:54:29 AM Ordering Provider: EMILIO REYES [id number] Note Date of Service 11/06/2024 Subjective This is ICU day #3 for Marcela, a 69-year-old female past medical history coronary artery disease status post stenting in the , 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 Initial saturation on 4 L nasal cannula was 70%. Lactic acid was elevated at 4.6. She initially went to ER at [facility] with shortness of breath and wheezing. She [...] EMILIO DERAS MD on 11/06/2024 10:46 AM [id number] Note* Exam Date Time Procedure Performing Provider Status 11/06/24 6:28 AM XR Chest 1 View GENARO NO MD; Auth (Verified) [id number] ORIGINAL EXAMINATION: ONE XRAY VIEW OF THE [...] 11/06/2024 6:39:04 AM Ordering Provider: EMILIO REYES [id number] Consult note Date of Service 11/05/2024 Reason [...] Problem List/Past Medical History Ongoing CAD in [place] artery Cardiomyopathy Procedure/Surgical History Echocardiogram: 09/04/23 Cardiac [...] JACQUELINE FAUSTIN DPM on 11/05/2024 05:02 PM [id number] Note Date of Service 11/05/2024 Subjective This is ICU day #2 for Marclea, a 69-year-old female past medical history coronary artery disease status post stenting in the , 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 Initial saturation on 4 L nasal cannula was 70%. Lactic acid was elevated at 4.6. She initially went to ER at [facility] with shortness of breath and wheezing. She [...] EMILIO DERAS MD on 11/05/2024 01:07 PM [facility]egdicjm12-57-1423 Note* Exam Date Time Procedure Performing Provider Status 11/05/24 10:45 AM Echocardiogram, Adult - CV MARY BERNAL MD; Auth (Verified) [facility]Yvlofwsd82-38-2004 Note* Exam Date Time Procedure Performing Provider Status 11/05/24 6:27 AM XR Chest 1 View GENARO NO MD; Auth (Verified) [id number] ORIGINAL EXAMINATION: ONE XRAY VIEW OF THE [...] 6:36:29 AM Ordering Provider: VANDANA DOS SANTOS [id number] Note* Exam Date Time Procedure Performing Provider Status 11/04/24 8:[address] Angiography Chest w/ Contrast PARISH THURMAN MD; Auth (Verified) [id number] ORIGINAL EXAMINATION: CTA OF THE CHEST 11/04/2024 [...] the resident's findings and interpretation. Interpreted by: Parish Thurman Preliminary Report By: Bruce Saleh Electronically signed By Parish Thurman Dictated Date: 11/04/2024 8:03:57 PM Prelim Date: 11/04/2024 8:13:05 PM Sign Date: 11/04/2024 8:33:11 PM Ordering Provider: KAYLA RYAN [id number] Note. MICRO - Microbiology PROCEDURE: Streptococcus Pneumoniae [...] Locations *1: This test was performed at: [facility], [address] [place] [address], [facility] , [facility]01-13-2025 Note. MICRO - Microbiology PROCEDURE: Legionella Urine [...] Locations *1: This test was performed at: [facility], [address] [place] [address], [id number] , [facility] [id number] History and physical note Date of Service 11/04/2023 Chief Complaint breathlessnessx1 day History of Present Illness Patient is a 69 year [facility] on 11/04/2024 for concerns of breathlessness x [...] from patient documentation that was sent from [facility]. Per documentation, appears that patient was apparently [...] as well. While in the ER at [facility], patient was also found to have an irregularly irregular rhythm and was also tachycardic all the way up to 143 bpm.For this purpose as well as elevated blood pressures, patient was given Cardizem loading as well asCardizem drip. On the way via the ambulance to [facility], patient converted and is now in normal sinus rhythm. Roughly at about 10:30 AM this morning. While at [facility] preliminary vitals, Lab work, radiological tests showed: [...] and sedation protocols. -Obtain imaging reads from [facility]. -For the time being, we will continue [...] Problem List/Past Medical History Ongoing CAD in [place] artery Cardiomyopathy Procedure/Surgical History Echocardiogram: 09/04/23 Cardiac [...] KAYLA RYAN MD on 11/04/2024 03:48 PM [facility] [id number] Evaluation + Plan noteExtracted from: Title:History and [...] and sedation protocols. -Obtain imaging reads from [facility]. -For the time being, we will continue [...] and depression who presented as transfer from [facility] with acute respiratory failure requiring intubation. Initial saturation on 4 L nasal cannula was 70%. Lactic acid was elevated at 4.6. She initially went to ER at [facility] with shortness of breath and wheezing. She [...] Appointment Date:12/06/2024 03:30:00 PM Scheduled Provider:NORA ROBERT Location:[facility] Appointment Type:[facility] Hospital Follow Up Diagnostic Tests Pending * Culture Respiratory with Gram Stain 11/04/24 Future Scheduled Tests Laboratory* Basic Metabolic Panel 01/22/24 * Basic Metabolic Panel 02/08/24 * Basic Metabolic Panel 01/31/24 [facility] 01-13-2025 Note* Exam Date Time Procedure Performing Provider Status 11/04/24 12:34 PM XR Abdomen AP ARANZA REDDY MD; Auth (Verified) [id number] ORIGINAL EXAMINATION: ONE XRAY VIEW OF THE [...] Sign Date: 11/04/2024 12:56:39 PM Ordering Provider: [facility]01-13-2025 Note* Exam Date Time Procedure Performing Provider Status 11/04/24 12:32 PM XR Chest 1 View ARANZA REDDY MD; [facility] (Verified) [id number] ORIGINAL EXAMINATION: ONE XRAY VIEW OF THE [...] 11/04/2024 12:56:39 PM Ordering Provider: KAYLA RYAN [facility] HospitalZquhsnct12-55-5029 History and physical note Date of Service 11/04/2023 Chief Complaint breathlessnessx1 day History of Present Illness Patient is a 69 year old [facility] on 11/04/2024 for concerns of breathlessness x [...] from patient documentation that was sent from [facility]. Per documentation, appears that patient was apparently [...] as well. While in the ER at [facility], patient was also found to have an irregularly irregular rhythm and was also tachycardic all the way up to 143 bpm.For this purpose as well as elevated blood pressures, patient was given Cardizem loading as well asCardizem drip. On the way via the ambulance to [facility], patient converted and is now in normal sinus rhythm. Roughly at about 10:30 AM this morning. While at [facility] preliminary vitals, Lab work, radiological tests showed: [...] and sedation protocols. -Obtain imaging reads from [facility]. -For the time being, we will continue [...] Problem List/Past Medical History Ongoing CAD in [place] artery Cardiomyopathy Procedure/Surgical History Echocardiogram: 09/04/23 Cardiac [...] KAYLA RYAN MD on 11/04/2024 03:48 PM [facility]Sjzogumw16-86-0721 [facility]12-12-2024 History of Present illness Narrative* Kenzie Fontana APRN-APRIL - 10/03/2024 2:10 PM EST Subjective Patient [...] June she had COPD exacerbation, went to [place] and was transferred to [place] per the patient. Rpeorts since that admission she still uses albuterol daily, and trelegy daily. She is currently taking Plavix, ASA and aspirin, she is unsure if she had an NC in the past or who started her [...] Referral to Cardiology 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, unspecified vessel [...] start losartan 50mg daily documented in this [facility] Work Phone: 1(732) 411-760711-27-2023 History of Present illness Narrative* Elvin Blanc PA-C - 09/18/2023 11:50 AM EST Subjective Patient ID: Zabrina Hsu is a 68 y.o. female who presents for Establish Care (Patient here to get established as a new patient and transferring from [place]./Patient dx with COPD, seen in ER last week for SOB and put on Oxygen 2 liters daily./Colonoscopy, mammogram and pap test done over 10years, bone density never done.). HPI Patient presents to establish care. Patient is a very poor historian. Chronic illnesses were essentially deduced by looking at the med list. Currently patient is treated for coronary artery disease, COPD, heart failure, hypertension, and dyslipidemia. Patient currently taking Plavix, Trelegy, Lasix, metoprolol, and Crestor in management of these. Patient was recently admitted to hospital in [facility]. Patient is not sure why stating [...] T4 if abnormal 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, unspecified vessel [...] type (CMS/HCC) [I25.110] 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, unspecifiedvessel or lesion type (CMS/HCC) [I10] Primary hypertension [I50.9] Congestive heart failure, unspecified HF chronicity, unspecified heart failure type (CMS/HCC) documented in this [facility] Work Phone: 1(886) 788-700111-16-2023 Note. MICRO - Microbiology PROCEDURE: Blood Culture [...] Locations *1: This test was performed at: [facility], [address] [place] [address], [facility] , [facility])09-07-2023 Note. MICRO - Microbiology PROCEDURE: Blood Culture [...] Locations *1: This test was performed at: [address]09-07-2023 Note. MICRO - Microbiology PROCEDURE: Blood Culture [...] Locations *1: This test was performed at: [address], [address] [place] [address] ([facility]09-07-2023 Note. MICRO - Microbiology PROCEDURE: Blood [...] Locations *1: This test was performed at: [facility], [address] [place] [address], [facility]- , [facility]09-06-2023 Hospital Discharge instructions Patient Education 09/06/2023 11:21:47 [...] Document Reviewed: 10/10/2014 ExitCare Patient Information 2015 Out[employer]. This information is not intended to replace [...] breathing. Follow these instructions at home: Take byml-mlu-ejvkdtj and prescription medicines only as told by [...] 10/14/2014 Document Revised: 09/21/2018 Document Reviewed: 04/26/2017 [employer] Patient Education 2020 AppMyDay. 09/06/2023 11:20:40 Home Oxygen Use, Adult Home [...] oxygen Your health care provider or a sales representative facility services from your emergency medical technician/driver company will show you how touse your [...] not move around. Follow instructions from your emergency medical technician/driver company about how to safely secure your tank. Make sure you have enough oxygen for the amount of time you will be away from home. If you are planning air travel, contact the airline to find out if they allow the use of an approved portable oxygen concentrator. You may also need documents from your health care provider and emergency medical technician/driver company before you travel. General safety tips If you use an oxygen cylinder, make sure it is in a stand or secured to an object that will not move (fixed object). If you use liquid oxygen, make sure its container is kept upright. If you use an oxygen concentrator: ?Tell your [employer]. Make sure you are given priority service [...] Summary Your health care provider or a sales representative facility services from your emergency medical technician/driver company will show you how touse your [...] 12/29/2004 Document Revised: 03/28/2019 Document Reviewed: 05/02/2017 [employer] Patient Education 2020 AppMyDay. Follow Up Care 09/02/2023 04:20:17 With:[employer] will be your oxygen supplier. Please call [phone] for questions or concerns. Address: When: Unknown With:FERCHO VILLASEÑOR Address: [address] [place] [phone] Business (1) When:1-2 days With:PHILIPPE ZARAGOZA MD Address: [address] [address] [place] [phone] When:5 to 7 days With:ASTRID ROBERT MD Address: [address] [place], [place] [address]- [phone] When:09/13/2023 15:00:00 With:[facility] will contact you for an appointment If you have any questions please call:[phone]. Address: When: Unknown [facility] 11-15-2023 Note Discharge Instructions Thank you for allowing [facility] to assist you with your healthcare needs. The following is importantdischarge information regarding your hospital visit. Your Care Team DO FERCHO VILLASEÑOR What to do next Scheduled Follow-Up Appointments Appointment Type When Where Contact Information[facility] Hospital Follow Up 09/13/2023 03:00 PM EST [facility] Follow [facility] Appointments Follow Up with ASTRID ROBERT MD When 09/13/2023 03:00 PM EST Where: [address] [place] [address]- [phone] Follow Up with PHILIPPE ZARAGOZA MD When Within 5 to 7 days Where: [address] [address] [place] [address]- [phone] Follow Up with [facility] will contact you for an appointment If you have any questionsplease call:[phone]. When Where: The Following Activity and Diet [...] needed for wheezing Refills: 3 Pickup at [facility] New clopidogrel (Plavix 75 mg oral tablet) 1 tab(s) by mouth Once a day Refills: 3 Pickup at [facility] New fluticasone/ umeclidinium/ vilanterol (Trelegy Ellipta 100 mcg-62.5 mcg-25 mcg/ inh inhalation powder) 1 puff(s) by inhalation Once a day Refills: 3 at the same time every day. Following administration, rinse mouth with water after use (do not swallow). Pickup at [facility] New furosemide (Lasix 20 mg oral tablet) 1 tab(s) by mouth Once a day Refills: 3 Pickup at [facility] New metoprolol (metoprolol succinate 25 mg oral TABLET extended release) 1 tab(s) by mouth Twice daily with meals Refills: 3 Pickup at [facility] New rosuvastatin (rosuvastatin 20 mg oral tablet) 2 tab(s) by mouth Once a day Refills: 3 Pickup at [facility] New sacubitril-valsartan (Entresto 24 mg-26 mg oral tablet) 1 tab(s) by mouth Two (2) times a day Refills: 3 Pickup at [facility] Unchanged aspirin (aspirin 81 mg oral delayed release tablet) 1 tab(s) by mouth Every day Unchanged buPROPion (Wellbutrin SR) 100 Milligram by mouth Once a day Unchanged oxcarbazepine (Trileptal) 150 Milligram by mouth Daily at bedtime Pharmacy Information [facility]: [address], [place] [phone] Please take this list to your next [...] tablets, computers, or wireless accessories such as remote control, or ZENTICKEToth devices. Do not reuse a needle, syringe [...] blood pressure, such as diet pills or nanfv-ieo-ltpb medicine. What are the possible side effects [...] may report side effects to FDA at 1-685-HMU-3949. What other drugs will affect furosemide? Sometimes [...] drugs may affect furosemide, including prescription and ipaq-ohk-gdcnhej medicines, vitamins, and herbal products. Not all [...] to ensure that the information provided by [employer]. ('Multum') is accurate, up-to-date, and complete, but no guarantee is made to that effect. Drug information contained herein may be time sensitive. [employer] information has been compiled for use by healthcare practitioners and consumers in the [place] and therefore [employer] does not warrant that uses outside of the [place] are appropriate, unless specifically indicated otherwise. [employer] drug information does not endorse drugs, diagnose patients or recommend therapy. [employer] drug information isan informational resource designed to assist licensed healthcare practitioners in caring [facility] their [facility] and/or to serve consumers viewing this service as a supplement to, and not a substitute for, the expertise, skill, knowledge and judgment of healthcare practitioners. The absence of a warningfor a given drug or drug combination in no way should be construed to indicate that the drug or drug combination is safe, effective or appropriate for any given patient. [employer] does not assume any responsibility for any aspect of healthcare administered with the aid of information [employer] provides. The information contained herein is not intended to cover all possible uses, directions, precautions, warnings, drug interactions, allergic reactions, or adverse effects. If you have questions about the drugs you are taking, check with your doctor, nurse or pharmacist. Copyright 2969-8359 [facility]. Version: 18.. Revision Date: 12/30/2022. metoprolol (oral/injection) [...] may report side effects to FDA at 4-390-RII-7402. What other drugs will affect metoprolol? Tell your doctor about all your current medicines. Many drugs can affect metoprolol, especially: any other heart or blood pressure medications; epinephrine (Epi-Pen); an antidepressant; an ergot medicine--dihydroergotamine, ergonovine, ergotamine, methylergonovine; or an MAO inhibitor--isocarboxazid, linezolid, phenelzine, rasagiline, selegiline, tranylcypromine. This list is not complete and many other drugs may affect metoprolol. This includes prescription and yrtj-qjb-ghlyvkp medicines, vitamins, and herbal products. Not all [...] to ensure that the information provided by [employer]. ('Multum') is accurate, up-to-date, and complete, but no guarantee is made to that effect. Drug information contained herein may be time sensitive. [employer] information has been compiled for use by healthcare practitioners and consumers in the [place] and therefore [employer] does not warrant that uses outside of the [place] are appropriate, unless specifically indicated otherwise. [employer] drug information does not endorse drugs, diagnose patients or recommend therapy. [employer] drug information isan informational resource designed to [...] effective or appropriate for any given patient. [employer] does not assume any responsibility for any aspect of healthcare administered with the aid of information [employer] provides. The information contained herein is not intended to cover all possible uses, directions, precautions, warnings, drug interactions, allergic reactions, or adverse effects. If you have questions about the drugs you are taking, check with your doctor, nurse or pharmacist. Copyright 6093-8616 [employer]. Version: 19.. Revision Date: 05/31/2023. Education Materials [...] 10/09/2006 Document Revised: 09/25/2013 Document Reviewed: 10/10/2014 [facility] Patient Information 2015 Outski. This information is not intended to replace [...] breathing. Follow these instructions at home: Take miwc-ajr-hbnuxbh and prescription medicines only as told by [...] 10/14/2014 Document Revised: 09/21/2018 Document Reviewed: 04/26/2017 SOLOMO365 Patient Education 2020 SOLOMO365 Inc. Home Oxygen Use, Adult When a medical [...] oxygen Your health care provider or a sales representative facility services from your emergency medical technician/driver company will show you how touse your [...] not move around. Follow instructions from your emergency medical technician/driver company about how to safely secure your tank. Make sure you have enough oxygen for the amount of time you will be away from home. If you are planning air travel, contact the airline to find out if they allow the use of an approved portable oxygen concentrator. You may also need documents from your health care provider and emergency medical technician/driver company before you travel. General safety tips If you use an oxygen cylinder, make sure it is in a stand or secured to an object that will not move (fixed object). If you use liquid oxygen, make sure its container is kept upright. If you use an oxygen concentrator: ? Tell your electric company. Make sure you are [...] Summary Your health care provider or a sales representative facility services from your emergency medical technician/driver company will show you how touse your [...] 12/29/2004 Document Revised: 03/28/2019 Document Reviewed: 05/02/2017 [employer]365 Patient Education 2020 SOLOMO365 Inc. Additional Information VACCINATE! IT SAVES LIVES! Members of the community who have not yet received the COVID-19 vaccine and would like to receive it can visit one of [facility] vaccine clinics. There are many vaccine clinic locations within the [facility]. For locations and available times, please visit https://gettheshot.coronavirus.[place].gov/. It is important to note that some COVID mobile vaccine clinics are held outdoors and may be canceled in rainy or stormy conditions. To learn more about pediatric vaccinations (ages 5-11), we invite you to visit the [facility] webpage. https://www.[facility].org/pages/0460-Hkmik-Qynjwjujink-Llxabtwvtj-Mwysg-Hfk stions.htmlTo learn more about the COVID-19 vaccine, we invite you to visit the CDC website for a list of frequently asked questions.https://www.cdc.gov/coronavirus/2019-ncov/vaccines/faq.html [employer] [facility] Patient Portal Access Instructions: Stay connected with your healthcare team and access your personal medical information anytime with the [employer] [facility] Patient Portal. Please follow the directions below to create your [employer] [facility] account: 1.Access the email account you provided upon registration to the hospital/physician office.2.Look for an invitation email from [facility].3.Open the email and access the invitation link: AcceptInvitation to [employer] [facility].4.Fill in the required lr to create your account. To access your account, visit [email or web address]. Click the blue button labeled Access Patient [...] you will allowto register on the [employer] [facility] Patient Portal for access to your information. You can also access the [employer] Patient Portal on the [facility] [employer]z. Simply click on Patient Portal and then log into your account. If you would like to receive a full copy of your medical records, please contact the [facility] Medical Records Department by calling [phone], Monday through Monday between 8 a.m. and [...] Call your local pharmacy or go to http://[employer]/3J1Qp1f to find one close to you.3.Make use of household items: Use cat litter or old coffee grounds to dispose medications if other options arenot available. Mix your drugs with these household products, seal them in an airtight container andthrow it into the garbage. Call [facility]: [phone] to be sure your drugs can be [...] combine opioids with (more content not included)... [facility]yyhetyr35-33-7636 Respiratory therapy Hospital Progress note Respiratory Therapy [...] Albuterol Q2hRT prn RT Assessment [Frequency/Schedule] : tid DESHAWN Cuenca M - 09/06/2023 10:21 EST Digitally Signed by DESHAWN Cuenca on 09/06/2023 10:21 AM [facility]Zbnhzzrm19-86-3160 Discharge summary Date of Service 09/06/23 Discharge [...] (R74.8 - ICD-10-CM) Atherosclerotic heart disease of [place] coronary artery without angina pectoris (I25.10 - [...] BID, # 60 tab(s), 3 Refill(s), Pharmacy: [facility], 157.5, cm, 09/02/23 6:47:00 EST, [...] qDay, # 30 tab(s), 3 Refill(s), Pharmacy: [facility], 157.5, cm, 09/02/23 6:47:00 EST, Height, kg, 09/02/23 6:47:00 EST, Dosing Weight Ordered: Plavix 75 mg oral tablet,Dose : 75 mg = 1 tab(s), Oral, qDay, # 30 tab(s), 3 Refill(s), Pharmacy: [facility], 157.5, cm, 09/02/23 6:47:00 EST, [...] swallow)., # 60 EA, 3 Refill(s), Pharmacy: [facility], 157.5, cm, 09/02/23 6:47:00 EST, Height, kg, 09/02/23... Ordered: albuterol MDI (90 mcg/inh) CFC free inhalation aerosol,1 puff(s), Inhalation, q4h, PRN as needed for wheezing, # 8.5 gram(s), 3 Refill(s), Pharmacy: [facility], 157.5, cm, 09/02/23 6:47:00 EST, Height, kg, 09/02/23 6:47:00 EST, Dosing Weight Discontinued: losartan,Start: 09/04/23 11:43:00 EST, Dose = 25 mg, = 1 tab(s), Oral, qDay, 09/04/2311:43:00 EST Discontinued: losartan 25 mg oral tablet,Dose : 25 mg = 1 tab(s), Oral, qDay, # 30 tab(s), 3 Refill(s), Pharmacy: [facility], 157.5, cm, 09/02/23 6:47:00 EST, Height, kg, 09/02/23 6:47:00 EST, Dosing Weight Ordered: metoprolol succinate 25 mg oral TABLET extended release,Dose : 25 mg = 1 tab(s), Oral, BIDM, # 60 tab(s), 3 Refill(s), Pharmacy: [facility], 157.5, cm, 09/02/23 6:47:00 EST, Height, kg, 09/02/23 6:47:00 EST, Dosing Weight Ordered: rosuvastatin 20 mg oral tablet,Dose : 40 mg = 2 tab(s), Oral, qDay, # 60 tab(s), 3 Refill(s), Pharmacy: [facility], 157.5, cm, 09/02/23 6:47:00 EST, [...] to Physician - Ordered -- 09/03/23 15:17:00 DIEUDONNE CHANEY WAQAS MD, Routine, Delirium Imaging Results and Diagnostics [...] When 09/13/2023 03:00 PM EST Where: [address] [facility] [place] [address]- [phone] Follow Up with PHILIPPE ZARAGOZA MD When Within 5 to 7 days Where: [address] [address] [place] [address]- [phone] Follow Up with [facility] will contact you for an appointment If you have any questionsplease call:[phone]. When Where: Follow Up Appointments No qualifying data available. Follow Up Labs/Studies Discharge Labs No Follow-up Labs Discharge Studies No Follow-up Studies Discharge Diet No qualifying data available. Discharge Activity No qualifying data available. Readmission Risk/Palliative Score LACE Score: 11 (09/04/23 12:59:00) Palliative Total Score: 1 (09/04/23 13:00:00) Digitally Signed by CARLOS NOONAN MD on 09/06/2023 10:20 AM [facility]Cvsjdgid79-03-2786 Cardiology Progress note Subjective No acute overnight [...] CARLOS NOONAN MD on 09/05/2023 03:29 PM [facility]Wflhfktr47-23-8919 Cardiology Progress note Subjective No acute overnight events, patient still requiring supplemental O2. Denies any chest pain. Objective Vitals and Measurements T: 36.8 C (Oral) TMIN: 36.5 C (Oral) TMAX: 36.8 C (Oral) HR: 74(Monitored) RR: 16 BP: 182/98 SpO2:97% Intake and Output 7AM Yesterday to 7AM [...] CARLOS NOONAN MD on 09/04/2023 12:14 PM [facility] HospitalKlonbzoi14-67-4679 Note Date of Service 09/04/2023 Chief Complaint Weakness Subjective Patient evaluated at bedside, no chest pain. Mild shortness of breath. Noted to be alert, orientedto person, place, time, situation. No agitation noted [...] by ROSY MORALEZ on 09/04/2023 02:58 PM [facility] HospitalLqrbbzna37-68-6782 Pulmonary Progress note Date of Service 09/04/2023 [...] pulmonary edema on exam. Agree with diuresis Philippe Zaragoza M.D., [facility] Digitally Signed by PHILIPPE ZARAGOZA MD on 09/04/2023 01:22 PM [facility] HospitalKdhivbfd94-25-4010 Cardiology Progress note Subjective No acute overnight [...] be due to COPD versus CHF exacerbation. [facility] results personally reviewed along with TTE, RWMA [...] CARLOS NOONAN MD on 09/04/2023 12:14 PM [facility] HospitalAupxzzwh46-84-8967 Note Date of Service 09/04/2023 Chief Complaint [...] by ROSY MORALEZ on 09/04/2023 02:58 PM [facility] HospitalCybnsdhi10-24-6868 Note* Exam Date Time Procedure Performing Provider Status 09/04/23 10:04 AM Echocardiogram, Adult - CV Auth (Verified) [facility] 11-13-2023 Note. MICRO - Microbiology PROCEDURE: Urine [...] Locations *1: This test was performed at: [address], [address] [place] [address] ([place])09-04-2023 Note. MICRO - Microbiology PROCEDURE: Culture Respiratory [...] Locations *1: This test was performed at: [address], [address] [place] [address] ([place])09-04-2023 Note ORIGINAL EXAMINATION: ONE XRAY VIEW OF [...] Sign Date: 09/04/2023 6:42:09 AM Ordering Provider: [facility]11-12-2023 Note Date of Service 09/03/2023 Reason for Consultation Delirium Referring Physician Dr. Doc Perera History of Present Illness A 68 [...] on my evaluation she was satting well on4 L of oxygen by nasal cannula. ABG [...] HR: 72(Apical) RR: 20 BP: 158/71 SpO2: 91% HT: 157.5 cm WT: 45.9 kg BMI: [...] continue to follow-up. Note was written using [employer] health inspector food software. Some of the meaning of the words and sentences might have changed during health inspector food, if there was ever some confusion about [...] ROSINA BRO MD on 09/03/2023 05:02 PM [facility] HospitalEkviidrb71-53-8865 Cardiology Consult note Date of Service 09/03/2023 [...] Result Date: September 02, 2023 Verified By: HSAHIDA GALICIA MD CLINICAL STATEMENT: IMPRESSION: Support devices [...] of this technology. Sonia Canseco DO, MS Pre Coder (PGY-6) Pager [phone]/ Cortext Problem List/Past Medical History Ongoing No [...] SONIA CANSECO DO on 09/03/2023 08:21 AM [facility] HospitalRwmsupot32-58-6865 Note* Exam Date Time Procedure Performing Provider Status 09/03/23 11:40 AM Cardiac Catheterization -CV Auth (Verified) [facility] 11-12-2023 Note Date of Service 09/03/2023. Day #2 in MICU Radha Hsu is a 68-year-old female with a past medical history of COPD, bipolar disorder, tobacco abuse, GERD, anxiety, depression, suicidal attempt in the past [2010], and personality disorder.The patient presented to [facility] for shortness of breath. The patient was [...] results, the patient was transferred to the [facility] ICU. During this admission it was determined [...] JHONNY VALENCIA MD on 09/03/2023 11:32 AM [facility] HospitalBbqmwboa92-49-0135 Nurse Progress note Attempted to call patient's , per patient request, to update him on patient's plan of care. did not answer home phone, voicemail box was full and unable to leave a message. Patient provided 's cell phone number. No answer and again unable to leave a message. Digitally Signed by Pamella Tao RN on 09/03/2023 09:17 AM [facility] HospitalHchqepnd76-89-7639 Cardiology Consult note Date of Service 09/03/2023 [...] of this technology. Sonia Canseco DO, MS Pre Coder (PGY-6) Pager [phone]/ Cortext Problem List/Past Medical History Ongoing No [...] SONIA CANSECO DO on 09/03/2023 08:21 AM [facility] HospitalAsjvodrx16-82-7928 NoteSinus rhythm Atrial premature complex Prolonged QT interval T WAVE INVERSION CONCERNING FOR ISCHEMIA Electronic Signature: ADAM MALLORY MD 09/03/2023 16:06:55[facility] 11-11-2023 Note. MICRO - Microbiology PROCEDURE: Blood [...] Locations *1: This test was performed at: [address], [facility] , [facility] ([place])09-02-2023 Note. MICRO - Microbiology PROCEDURE: Blood Culture [...] Locations *1: This test was performed at: [address], [facility] , [facility] ([facility]09-02-2023 Note. MICRO - Microbiology PROCEDURE: Blood [...] Locations *1: This test was performed at: [address], [facility] , [facility] ([facility]09-02-2023 Note. MICRO - Microbiology PROCEDURE: Blood [...] Locations *1: This test was performed at: [address], [facility] , [facility] ([place])09-02-2023 NoteSinus rhythm Atrial premature complex Probable anterior infarct, age indeterminate Prolonged QT interval Electronic Signature: ADAM MALLORY MD 09/03[facility]23 [facility] NoteSinus rhythm Atrial premature complex Anterior infarct, old Nonspecific T abnormalities, lateral leads Prolonged QT interval Electronic Signature: ADAM MALLORY MD 09/03/2023 16:06:01[facility] 11-11-2023 Evaluation + Plan noteExtracted from: Title:History [...] was 3.7 on admission The patient's admitting [place] lactic acid was 1.8. We will not [...] Appointments Appointment Date:09/13/2023 03:00:00 PM Scheduled Provider: Location:[facility] Appointment Type:[facility] Follow Up Diagnostic Tests Pending * Legionella Urine Ag 09/02/23 * Streptococcus Pneumoniae Urine Antig 09/02/23 [facility] 11-11-2023 History and physical note Date of [...] JHONNY VALENCIA MD on 09/02/2023 01:24 PM [facility] HospitalDidkchlq02-51-2850 Note ORIGINAL EXAMINATION: LIMITED ABDOMINAL KZGNPYNPDC79/11/2023 12:19 pm COMPARISON: None HISTORY: ORDERING SYSTEM [...] Sign Date: 09/02/2023 2:27:43 PM Ordering Provider: [facility]11-11-2023 NoteSinus rhythm Atrial premature complex Anterior infarct, old Nonspecific T abnormalities, lateral leads Prolonged QT interval Electronic Signature: ADAM MALLORY MD 09/03/2023 16:05:52[facility] 11-11-2023 Note ORIGINAL EXAMINATION: ONE XRAY VIEW [...] Sign Date: 09/02/2023 8:06:12 AM Ordering Provider: [facility]11-11-2023 History and physical note Date of Service 09/02/2023 Chief Complaint Shortness of breath History of Present Illness Marcela Hsu is a 68-year-old female with a past medical history of COPD, bipolar disorder, tobacco abuse, GERD, anxiety, depression, suicidal attempt in the past [2011], and personality disorder.The patient presented to [facility] for shortness of breath. The patient was [...] results, the patient was transferred to the [facility] ICU. Of note Echo on 12/27/2016: Ejection [...] was 3.7 on admission The patient's admitting [place] lactic acid was 1.8. We will not [...] PM Digitally Signed by JHONNY VALENCIA MD [facility] note Author Eleazar Valle [facility] Note Date/Time July 16, 2025 10:10am [facility] Medical Records Department [address] [place] [address] [place] [address] Consultation - Aoc Director Intelligence Officer 07/16/25811 MR#: [id number] Acct: [id number] Name: ZABRINA HSU Rep #:[id number] : 1955 70 From: Eelazar Valle DO PCP: SEUN Alvarez Status:ADM IN Location: ICU ICU01-1 Assessment & Plan Assessment/Plan (1) Acute respiratory failure with hypoxia and hypercapnia: PLAN: Plan RECOMMENDATIONS: 1. Continue assist-control mode of mechanical ventilation. Wean FiO2 and PEEP as tolerated. 2. Obtain follow-up ABG. 3. Obtain follow-up chest x-ray to confirm appropriate endotracheal tube placement. 4. Empiric antimicrobials, while awaiting infectious workup. 5. Continue scheduled bronchodilators and steroids. 6. Continue diuresis as tolerated by hemodynamics and renal function. 7. Propofol and fentanyl for sedation. Discontinue Versed infusion. 8. Continue appropriate ICU prophylaxis. IMPRESSIONS: 1. Acute respiratory failure with hypoxemia and hypercapnia Most likely multifactorial in etiology. The patient has a known history of COPDand a longstanding tobacco abuse history, but presented to the emergency department profoundly hypertensive with what I suspect is a component of flash pulmonary edema. The patient was ultimately intubated in the emergency department. She will be continued on assist-control mode of mechanical ventilation, with a goal to wean FiO2 and PEEP to maintain saturations at or above 90%. Echocardiogram is currently pending. Given that I cannot definitively rule out infection, we will plan to continue empiric antibiotics, pending culture results. She will be continued on scheduled bronchodilators andIV steroids as well. Diuretics will be continued, as tolerated by hemodynamics and renal function. The patient's Versed infusion will be discontinued. She will be continued on propofol and fentanyl for sedation. 2. History of coronary artery disease status post PCI/history of hypertrophic cardiomyopathy/valvular heart disease Continue diuretics as tolerated by hemodynamics and renal function. Follow-up echocardiogram is currently pending. 3. Chronic tobacco dependency/depression/glaucoma/hyperlipidemia Complicates care, management, recovery and prognosis. Continue supportive measures as noted above. PT/OT to evaluate the patient once medically stabilized. Hold on tube feeding initiation today. TIME: 40 minutes of critical care time, independent of procedures, was spent addressing the patient's acute respiratory failure with hypoxemia and hypercapnia, review of all data and collaboration with the care team. HPI Consult Data Date of Consult: 07/16/25 HPI Narrative Reason for Consultation: Acute respiratory failure HPI Narrative: The patient is a 70-year-old female, with a history as outlined below, who presented to the emergency department on July 16 with shortness of breath. The patient has a known history of COPD and chronic nicotine dependency, having been evaluated in the pulmonary medicine clinic back in 2020. The patient has been lost to follow-up since that time. Her medical history is also significantfor coronary artery disease status post PCI along with an atypical variant of hypertrophic cardiomyopathy. On presentation to the emergency department, the patient was documented to have a temperature of 96.6 ?F. She was tachycardic and notably hypertensive with a presenting blood pressure of 245/99 mmHg. The patient was quite hypoxemic on presentation as well. Laboratory evaluation was notable for a white blood cell count of 13,000. Hemoglobin and platelet count were stable. Initial arterial blood gas was notable for a pH of 7.06 with a pCO2 of 75 and pO2 of 73. Chemistry profile was notable for a creatinine of 1.27. Lactate was elevated at3.2. AST and ALT were increased at 158 and 118, respectively. Troponin was increased to 114. BNP was elevated at 7963. Urine analysis was unremarkable. CT head revealed low-density in the deep white matter on the right and left consistent with chronic ischemic change. CTA chest showed no evidence for pulmonary embolism. There was extensive bilateral emphysematous changes with interstitial septal thickening and ground glass opacities along with bilateral pleural effusions. The patient was ultimately placed on scheduled bronchodilators, IV steroids, antimicrobials and Lasix. [facility] Medical History 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 Non-rheumatic mitral regurgitation Depression Anxiety Pulmonary hypertension Essential hypertension Pure hypercholesterolemia Atherosclerotic heart disease of [place] coronary artery without angina pectoris Home Medications ?Medication ?Instructions ?Recorded ?Last Taken ?Type aspirin 81 mg tablet,delayed 81 mg PO DAILY 07/08/19 U nknown History release (Adult Low Dose Aspirin) atorvastatin 40 mg tablet 40 mg PO QHS PRN 07/08/19 Un known History nitroglycerin 0.4 mg sublingual 0.4 mg sublingual Q5-1 5M PRN chest 07/08/19 Unknown History tablet pain oxybutynin chloride 10 mg 10 mg PO DAILY 07/08/19 Unkn own History tablet,extended release 24 hr venlafaxine 75 mg tablet 75 mg PO BID 07/08/19 Unknow n History albuterol sulfate 90 mcg/actuation 2 puff inhalation Q 4H PRN 12/23/20 Unknown Rx aerosol inhaler (Ventolin HFA) shortness of breath or wheezing #8.5 grams brimonidine 0.2 % eye drops ml ophthalmic (eye) Unknown History dorzolamide 2 % eye drops 1 drp ophthalmic (eye) TID 0 06/16/21 Unknown History lisinopril 20 mg tablet 20 mg PO DAILY #90 tabs 05/24 03/12 Unknown Rx Allergy/AdvReac Type Severity Reaction Status Date / Time No Known Allergies Allergy Unverified 06/16/21 14:41 Family History Mother Diabetes Surgical History History of coronary artery stent placement (01/02/17) History of hysterectomy Social History Smoking Status: Current every day smoker tobacco type: cigarettes Tobacco: How many years used: 46 second hand exposure: Yes alcohol intake: never substance use type: does not use caffeine: Yes Type: coffee ROS Review of Systems ROS Unobtainable: due to endotracheal tube Physical Exam Const Constitutional Narrative: The patient is intubated, sedated and mechanically ventilated. She is chronically ill in appearance. General Appearance: frail HEENT normocephalic and head/scalp atraumatic Mouth: endotracheal tube in place and OG tube in place Eyes EOMs intact bilaterally, conjunctivae normal and no scleral icterus Neck supple General: trachea midline Chest Chest Narrative: Increased AP diameter. Resp Auscultation: diminished lung sounds; Negative for rales, rhonchi or wheezes Cardio regular rate and regular rhythm GI normal to inspection, nondistended, normoactive bowel sounds Extremity no clubbing, cyanosis or edema Skin no rashes or lesions noted Neuro Sensorium / Orientation: sedated on vent Lab / Micro Data 07/16/25 03:20 07/16/25 03:20 Labs: Laboratory Results - last 24 hr 07/16/25 03:20: WBC 13.1 H, RBC 3.95 L, Hgb 11.6 L, Hct 37.9, MCV 95.9, MCH 29.4, MCHC 30.6 L, RDW Std Deviation 51.3 H, RDW Coeff of Shivam 14.6, Plt Count 411, MPV 9.7, Immature Gran % (Auto) 2.900 H, Neut % (Auto) 30.6 L, Lymph % (Auto) 56.5 H, [place] % (Auto) 6.4, Eos % (Auto) 2.7, Baso % (Auto) 0.9, Absolute Neuts (auto) 4.0, Absolute Lymphs (auto) 7.43 H, Nucleated RBC % 0, DifferentialComment SCANNED, Sodium 137, Potassium 3.7, Chloride 100, Carbon Dioxide 21.7, Anion Gap 15, BUN 17, Creatinine 1.27 H, Estim Creat Clear Calc 34.32 L, Est GFR(MDRD) Non-Af 45 L, BUN/Creatinine Ratio 13.1, Glucose 368 H, Calcium 8.5, Magnesium 2.8 H, Total Bilirubin 0.34, AST 158 H, ALT 118 H, Alkaline Jvwurjnqvec000 H, Total Creatine Kinase 126, Troponin T High Sens 114 H*, NT pro BNP II 7963 H, Total Protein 6.9, Albumin 3.8, Globulin 3.1, Albumin/Globulin Ratio 1.2, Triglycerides 67 07/16/25 04:20: Lactic Acid 3.2 H* 07/16/25 05:29: Troponin T Hi Sens 2 Hr 95 H* Micro: Microbiology 07/16/25 03:44 Mucosa - Nose SARS-CoV-2, Influenza & RSV (PCR) - Final ABG Data ABG results: ABG 07/16/25 03:58 Specimen Type ART Sample Site L Radial pH 7.06 L* Bicarbonate Actual 21.2 L Total CO2 24 Base Excess -9 L O2 Saturation 86 L O2 % 50.0 ABG pCO2 75.1 H* ABG pO2 73 L Judith Test N/A Respiration Rate 20 O2 Delivery Device Adult Vent Vent Mode AC Tidal Volume 400.0 POC PEEP 5 Crit Call To/Read Back Yes Blood Gas Notified Whom Dr Sharif Blood Gas Notified Time 04:00:19 Imaging Radiology Impression Brain CT 07/16/25 03:25 IMPRESSION: There is low-density in the deep white matter on the right and left, and in the right occipital lobe consistent with chronic ischemic change. No acute intracranial pathology. Consider MRI with diffusion scan, or CT perfusion to exclude an acute component. Reading [facility] Chest CTA 07/16/25 03:25 IMPRESSION: No demonstrated PE, or thoracic aortic aneurysm Underlying emphysema with superimposed CHF, pneumonitis, bronchitis, free- flowing bilateral pleural effusions and bibasilar atelectasis ETT tip is in the right mainstem bronchus and should be retracted 3-4 cm, NG tube tip in satisfactory position No suspicious adenopathy Degenerative bony changes [place] Alert: ET tube tip in the SADAF The critical findings in the findings and impression above were relayed directlyby me by telephone to Bernardo Sharif on 07/16/2025 at 6:56 am with readback verification. Reading Location: [facility] Abdomen/Pelvis CT 07/16/25 06:40 IMPRESSION: No suspicious solid organ abnormality, there is atrophy of the right kidney compared to the left but no obstructive uropathy or suspicious solid renal lesion. Retained stool throughout the colon which may be impacted No free intraperitoneal fluid, air, or suspicious adenopathy NG tube tip in the body of the stomach Diffuse atherosclerosis Degenerative bony changes Reading Location: [facility] Charges/Coding Procedures Hospitalists Procedures: 26667 Critical Care 1st Hr 07/16/25 1010 <Electronically signed by Eleazar Valle DO> Cosigner Signature (if applicable): CC: SEUN Ozuna~ Signed [facility] Work Phone: Consult note Author Noelle Yñaez [facility] Note Date/Time July 16, 2025 10:25am [facility] Medical Records Department [address] [place] [address] Pharmacokinetic/Renal -Consult 07/16/25 0941 MR#: [id number] Acct: [id number] Name: ZABRINA HSU Rep #:[id number] : 1955 70 From: Noelle Yañez PCP: NATALIIA AlvarzeC Status:ADM IN Y Location: ICU ICU01-1 Consult Antibiotic Management Pharmacy has been consulted to manage selected antibiotic: Vancomycin Type of Intervention Type of Consult: New start Suspected Infection Suspected Infection: Pneumonia Labs Labs: Sodium 137 mmol/L (133-145) 07/16/25 03:20 Potassium 3.7 mmol/L (3.3-5.1) 07/16/25 03:20 Chloride 100 mmol/L (98-108) 07/16/25 03:20 Carbon Dioxide 21.7 mmol/L (21.0-32.0) 07/16/25 03:20 Anion Gap 15 (5-15) 07/16/25 03:20 BUN 17 mg/dL (4-19) 07/16/25 03:20 Creatinine 1.27 mg/dL (0.70-1.20) H 07/16/25 03:20 Est GFR (MDRD) Non-Af 45 (>60) L 07/16/25 03:20 BUN/Creatinine Ratio 13.1 RATIO (10-20) 07/16/25 03:20 Glucose 368 mg/dL (70-99) H 07/16/25 03:20 Microbiology Microbiology: Microbiology 07/16/25 08:25 Urine Catheter - Madrigal Legionella Antigen - Final 07/16/25 08:25 Urine Catheter - Madrigal Streptococcus pneumoniae Antigen (M - Final 07/16/25 03:36 Sputum, Induced/[place]ukens Gram Stain - Final 07/16/25 03:44 Mucosa - Nose SARS-CoV-2, Influenza & RSV (PCR) - Final Pharmacy Plan for Drug Dosing Pharmacy Plan for Drug Dosing: NEW START IV VANCOMYCIN Consulting Physician: Leonard Indication: pneumonia Goal Trough: 15-20 mg/dL SrCr: 1.27 mg/dL CrCl: CrCl 34 mL/min Comments: initial ER dose of 750mg given 07/16/25 ~0900 Vancomycin Dose: Will start 750mg Q24H (07/17/25 @ 0900) and get a trough prior to 3rd total dose per policy. Pending Level: 07/18/25 @ 0830 Pharmacy Service will continue to monitor and adjust dosing as required. 07/16/25 0942 <Electronically signed by Noelle Yañez> Date _ Noelle Yañez 07/16/25 1025 <Electronically signed by Eleazar Small> Cosigner Signature (if applicable): Date Eleazar Valle DO CC: ~ Signed [facility] Work Phone: Consult note Author Noelle Yañez [facility] Note Date/Time July 18, 2025 12:13pm [facility] Medical Records Department [address] [place] [address] Pharmacokinetic/Renal -Consult 07/18/25 1128 MR#: [id number] Acct: [id number] Name: ZABRINA HSU Rep #:[id number] : 1955 70 From: Noelle Yañez PCP: SEUN Alvarez Status:ADM IN Y Location: ICU ICU01-1 Consult Antibiotic Management Pharmacy has been consulted to manage selected antibiotic: Vancomycin Type of Intervention Type of Consult: Follow-up Labs Labs: Sodium 139 mmol/L (133-145) 07/18/25 06:30 Potassium 3.6 mmol/L (3.3-5.1) 07/18/25 06:30 Chloride 103 mmol/L (98-108) 07/18/25 06:30 Carbon Dioxide 23.0 mmol/L (21.0-32.0) 07/18/25 06:30 Anion Gap 13 (5-15) 07/18/25 06:30 BUN 34 mg/dL (4-19) H 07/18/25 06:30 Creatinine 1.04 mg/dL (0.70-1.20) 07/18/25 06:30 Est GFR (MDRD) Non-Af 57 (>60) L 07/18/25 06:30 BUN/Creatinine Ratio 32.4 RATIO (10-20) H 07/18/25 06:30 Glucose 181 mg/dL (70-99) H 07/18/25 06:30 Vancomycin Trough 7.7 ug/mL (5.0-15.0) 07/18/25 10:27 Microbiology Microbiology: Microbiology 07/16/25 03:44 Urine, Catheterized Urine Culture - Final Culture exhibits no growth. 07/16/25 03:36 Sputum, Induced/Lukens Gram Stain - Final 07/16/25 03:36 Sputum, Induced/Lukens Respiratory Culture - Final Mixed normal respiratory renu. No Streptococcus pneumoniae, beta-hemolytic Streptococcus or Staphylococcus aureus isolated. 07/16/25 10:30 Nasal Secretion MRSA (PCR) - Final 07/16/25 09:20 Mucosa - Nasopharyngeal Respiratory Panel (PCR) - Final 07/16/25 08:25 Urine Catheter - Madrigal Legionella Antigen - Final 07/16/25 08:25 Urine Catheter - Madrigal Streptococcus pneumoniae Antigen (M - Final 07/16/25 03:44 Mucosa - Nose SARS-CoV-2, Influenza & RSV (PCR) - Final Pharmacy Plan for Drug Dosing Pharmacy Plan for Drug Dosing: VANCOMYCIN LEVEL RECEIVED Current Vancomycin Dose: 750MG Q24 Number of Doses Received: 2 Vancomycin Level: 7.7MG/DL Hours Since Last Dose: 27 Renal Function: SCr 1.04 mg/dL, CrCl 39 mL/min Renal Function Trend: improved Vancomycin Plan/Comments: 27 hour level is subtherapeutic at 7.7mg/dL (goal 15- 20). Even though the trough is >24 hours, it is unlikely it would've been therapeutic if taken appropriately. Will increase dose to 1250mg Q24 and get a repeat trough prior to 3rd dose of new regimen. Pending Level: 07/20/25 @ 1130 Pharmacy Service will continue to monitor and adjust dosing as required. 07/18/25 1132 <Electronically signed by Noelle Yañez> Date _ Noelle Yañez 07/18/25 1213 <Electronically signed by Eleazar Small> Cosigner Signature (if applicable): Date Eleazar Valle DO CC: ~ Signed [facility] Work Phone: Consult note Author Mateo Gonzales [facility] Note Date/Time July 21, 2025 7:34am [facility] Medical Records Department [address] [place] [address] Pharmacokinetic/Renal -Consult 07/20/25 1137 MR#: [id number] Acct: [id number] Name: ZABRINA HSU Rep #:[id number] : 1955 70 From: Mateo Gonzales PCP: SEUN Alvarez Status:ADM IN Y Location: ICU ICU01-1 Consult Antibiotic Management Pharmacy has been consulted to manage selected antibiotic: Vancomycin Type of Intervention Type of Consult: Follow-up Suspected Infection Suspected Infection: Pneumonia Prior Doses of Antibiotics Prior Doses of Antibiotics Received/Current Regimen: Vancomycin 1250 mg Q24H Labs Labs: Sodium 139 mmol/L (133-145) 07/20/25 03:24 Potassium 4.4 mmol/L (3.3-5.1) 07/20/25 03:24 Chloride 105 mmol/L (98-108) 07/20/25 03:24 Carbon Dioxide 22.2 mmol/L (21.0-32.0) 07/20/25 03:24 Anion Gap 12 (5-15) 07/20/25 03:24 BUN 42 mg/dL (4-19) H 07/20/25 03:24 Creatinine 0.89 mg/dL (0.70-1.20) 07/20/25 03:24 Est GFR (MDRD) Non-Af 69 (>60) 07/20/25 03:24 BUN/Creatinine Ratio 47.3 RATIO (10-20) H 07/20/25 03:24 Glucose 194 mg/dL (70-99) H 07/20/25 03:24 Vancomycin Trough 13.3 ug/mL (5.0-15.0) 07/20/25 10:50 Microbiology Microbiology: Microbiology 07/16/25 04:20 Blood Culture (Wb) - Left Hand Blood Culture - Preliminary No growth in 48 hours. 07/16/25 04:05 Blood Culture (Wb) - Right Hand Blood Culture - Preliminary No growth in 48 hours. 07/16/25 03:44 Urine, Catheterized Urine Culture - Final Culture exhibits no growth. 07/16/25 03:36 Sputum, Induced/Lukens Gram Stain - Final 07/16/25 03:36 Sputum, Induced/Lukens Respiratory Culture - Final Mixed normal respiratory renu. No Streptococcus pneumoniae, beta-hemolytic Streptococcus or Staphylococcus aureus isolated. 07/16/25 10:30 Nasal Secretion MRSA (PCR) - Final 07/16/25 09:20 Mucosa - Nasopharyngeal Respiratory Panel (PCR) - Final 07/16/25 08:25 Urine Catheter - Madrigal Legionella Antigen - Final 07/16/25 08:25 Urine Catheter - Madrigal Streptococcus pneumoniae Antigen (M - Final 07/16/25 03:44 Mucosa - Nose SARS-CoV-2, Influenza & RSV (PCR) - Final Dosing Weight Weight used for dosin kg Estimated Creatinine Clearance Estimated Creatinine Clearance: ~ 46 Goal Trough Goal Trough: 15-20 mcg/mL Pharmacy Plan for Drug Dosing Pharmacy Plan for Drug Dosing: Vancomycin trough = 13.3, increase to 1500 mg Q24H Pharmacy Service will continue to monitor and adjust dosing as required. Follow-Up Labs Follow-Up Labs: Trough: Vancomycin Date/Time Labs Ordered Labs to be done on [date and time ordered]: 07/22/25 @ 1130 07/20/25 1138 <Electronically signed by Mateo chin> Date _ Mateo Gonzales 07/21/25 0734 <Electronically signed by Eleazar Huynh O> Cosigner Signature (if applicable): Date Eleazar Valle DO CC: ~ Signed [facility] Work Phone: Consult note Author Apple kaiser [facility] Note Date/Time July 22, 2025 1:59pm [facility] Medical Records Department [address] [place] [address] Consultation - Palliative Care 07/22/25 1215 MR#: [id number] Acct: [id number] Name: ZABRINA HSU Rep #:[id number] : 1955 70 From: Apple KOHLI PCP: SEUN Alvarez Status:ADM IN Location: ICU ICU01-1 [facility] Medical History 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 Non-rheumatic mitral regurgitation Depression Anxiety Pulmonary hypertension Essential hypertension Pure hypercholesterolemia Atherosclerotic heart disease of [place] coronary artery without angina pectoris Home Medications ?Medication ?Instructions ?Recorded ?Last Taken ?Type aspirin 81 mg tablet,delayed 81 mg PO DAILY heart 06/23 04/10 Unknown History release (Adult Low Dose Aspirin) atorvastatin 40 mg tablet 40 mg PO QHS cholestrol 06/23 04/10 Unknown History nitroglycerin 0.4 mg sublingual 0.4 mg sublingual Q5-1 5M PRN chest 07/08/19 Unknown History tablet pain oxybutynin chloride 10 mg 10 mg PO DAILY overactive bl add 07/08/19 Unknown History tablet,extended release 24 hr albuterol sulfate 90 mcg/actuation 2 puff inhalation Q 4H PRN 12/23/20 Unknown Rx aerosol inhaler (Ventolin HFA) shortness of breath or wheezing #8.5 grams brimonidine 0.2 % eye drops ml ophthalmic (eye) eyes 0 06/16/21 Unknown History dorzolamide 2 % eye drops 1 drp ophthalmic (eye) TID e yes 06/16/21 Unknown History lisinopril 20 mg tablet 20 mg PO DAILY #90 tabs 05/24 03/12 Unknown Rx clopidogrel 75 mg tablet 75 mg PO DAILY heart 5 Unknown History furosemide 40 mg tablet 40 mg PO DAILY heart 5 Unknown History spironolactone 25 mg tablet 25 mg PO DAILY diuresis Unknown History OXYGEN - Supplemental ([facility] COPD 07/18/25 Unknown Histo ry INFORMATIONAL USE ONLY) Allergy/AdvReac Type Severity Reaction Status Date / Time No Known Allergies Allergy Unverified 06/16/21 14:41 Family History Mother Diabetes Surgical History History of coronary artery stent placement (01/02/17) History of hysterectomy Social History Smoking Status: Current every day smoker tobacco type: cigarettes Tobacco: How many years used: 46 second hand exposure: Yes alcohol intake: never substance use type: does not use caffeine: Yes Type: coffee ROS Constitutional Constitutional: Reports systems reviewed and no addt'l complaints, except as documented and as per HPI Eyes Eyes: Reports systems reviewed and no addt'l complaints, except as documented ENT HEENT: Reports systems reviewed and no addt'l complaints, except as documented Cardiovascular Cardiovascular: Reports dyspnea, dyspnea at rest, dyspnea on exertion, easily tiring during activity and fatigue Respiratory/Chest Respiratory/Chest: Reports dyspnea, dyspnea on exertion, shortness of breath at rest and shortness of breath with exertion Gastrointestinal Gastrointestinal: Reports systems reviewed and no addt'l complaints, except as documented Genitourinary Genitourinary: Reports systems reviewed and no addt'l complaints, except as documented Musculoskeletal Musculoskeletal: Reports back pain Integumentary Integumentary: Reports systems reviewed and no addt'l complaints, except as documented Neurologic Neurologic: Reports systems reviewed and no addt'l complaints, except as documented Psychiatric Psychiatric: Reports anxiety Endocrine Endocrinology: Reports systems reviewed and no addt'l complaints, except as documented Hematologic/Lymphatic Hematologic/Lymphatic: Reports systems reviewed and no addt'l complaints, exceptas documented Allergic/Immunologic Allergic/Immunologic: Reports systems reviewed and no addt'l complaints, except as documented Physical Exam Const alert and oriented x3 General Appearance: cooperative HEENT normocephalic Mouth: oral and palatal mucosa normal Resp Effort and Inspection: tachypneic Auscultation: diminished lung sounds Cardio regular rhythm, S1 normal heart sound and S2 normal heart sound Cardio Narrative: Patient was tachycardic during the entire assessment Rate: tachycardic GI normal to inspection, nondistended, normoactive bowel sounds, non-tender and non-distended GI Narrative: no guarding with palpation Skin no rashes or lesions noted and no jaundice Neuro oriented x3, CN's II-XII intact bilaterally and no focal motor deficits Sensorium / Orientation: alert Speech: speech normal Psych affect normal Psych Narrative: appropriate, makes good eye contact. Patient has had some documented anxiety issues during admission. Charges/Coding Palliative Care Palliative Care: 63415 New Pt Consult 80+ min HPI Current admission Current Code Status: Patient is currently a full code but considering DNR CC?a with intubation Associated Diagnosis: Acute on chronic respiratory failure Consult Data Date of Consult: 07/22/25 Location of consult: ICU Reason for referral: Goals of care conversations and CODE STATUS Referral source: Dr. Valle Palliative care diagnosis (Summary list): Acute on chronic respiratory failure Palliative care services/treatment (Accepted, as consult): Accepted Case discussed with referring provider: Goals of care. HPI Narrative HPI Narrative: PAIN ASSESSMENT Location: [ denies ] Quality: [ ] Severity/Quantity: [ ] Timing/Frequency:[ ] Context: [ ] Factors that make it better/worse: [ ] Associated signs &symptoms: [ ] ZABRINA HSU, is a 70 F who presented to the emergency department on 07/16/2025 with respiratory failure. She was subsequently intubated. She was extubated yesterday and is currently on nasal cannula at 4 L. She is on home O2at 3 L. I did review her labs and radiological studies as well as documentationsince admission and prior admissions. She did have an echocardiogram on 07/16/2025 showing mild concentric left ventricular hypertrophy. Inferior hypokinesis. Estimated EF of 55%. Stage I diastolic dysfunction. Moderate posterior mitral valve annular calcification. Calcified cord. Mild mitral valve regurgitation. Mild tricuspid valve insufficiency. Mild calcific aortic valve leaflets. Aortic valve sclerosis without stenosis. Mild 1+ pulmonic valve insufficiency. Following extubation she did fail her initial bedside swallow study. She then had a subsequent swallow study with speech-language pathology which she also failed. Today she did pass swallow study and has introduced heart healthy diet. I then met with the patient, Marcela, at bedside. Introduced myself and the concept of palliative care in which she voluntarily excepted our services. I discussed her medical history and she had nothing more to add. When I asked if she still smokes she said not anymore. I asked her when she quit and she stated that she quit the day she came in to the hospital. I did ask her if she was interested in smoking cessation and she stated that she was and she does notplan to go back to smoking again. I had an extensive discussion with her about CODE STATUS and the benefits versus burdens of CPR. She states that she would like to talk to her family about CPR but that she would want to be intubated again if needed. Her family did come into the room during our discussion in which I also discussed with them the benefits versus burdens of CPR and requested that they speak as a family to come up with a goal of care regarding CODE STATUS. The patient's children are very realistic as well as the patient'shusband and are leaning towards no CPR but they would like to speak to Marcela before making that decision. I did state that there was no hurry in making the decision and that we can discuss again tomorrow. I did note Kady to be significantly weak while trying to eat her lunch. Will await PT/OT recommendations but patient states that she is open to SNF rehab if needed. Herultimate goal is to return home. We then discussed the benefits of outpatient palliative care services. She states that she does want to continue aggressive medical management of her comorbidities but that she would be interested in palliative care outpatient services. I then discussed this with the family and they would all feel that she would benefit from the services. I did offer her choice for palliative care services in which [facility]. I also updated the family Zabrina's goals going forward as well as answered questions about her echocardiogram. Marcela did state that she is not interested in eating the food that we had here and states that it does not tastevery good. She may benefit from a dietitian consult, as well. All questions the patient and family had were answered. Palliative care will continue to follow for goals of care conversations as clinical picture evolves. I did update social services analyst about patient and family's decision about outpatient palliative care services. We did discuss the patient's anxiety and I did teach her some grounding techniques including breath work and guided imagery. I did explain to her the importance of deep breathing exercises during the early stages of an anxiety attack. Hospitalist: ZABRINA HSU, is a 70 F with a past medical history of essential hypertension; on lisinopril, hyperlipidemia; on atorvastatin, chronic tobacco abuse x ~46 years, CAD; s/p stents x 3 RCA + LAD x 1 (2017) on BASA plusprn SL NTG, history of apical variant hypertrophic cardiomyopathy per MRI (2017), history of nonrheumatic mitral regurgitation, history of myocardial fibrosis, history of inducible AVNRT, tobacco abuse; with subsequent COPD, pulmonary hypertension, OAB; on oxybutynin, depression; on venlafaxine, glaucoma; on brimonidine daily and dorzolamide eyes drops TID, history of hysterectomy and OA who presents to [facility] ER complaining ofSOB. Ms. Hsu was noted to be in respiratory distress upon arrival to the ER causing her to be immediately started ion BiPAP prior to being intubated so information was gathered from chart, medical staff and computer. In the ER she was noted to have a highly elevated blood pressure of 257/127 mmHg present on admission consistent with Hypertensive Emergency complicated by an elevated NT pro-BNP II of 7,963 pg/mL present on admission due to AE of CHF compounded by clinical evidence of AE COPD with Acute Hypoxic and Hypercapnic Respiratory Failure evidenced by ABG pH 7.06/ PCO2 75.1 mmHg/ PO2 73 mmHg/ HCO3 21.2 mmHg @ 86% on AC vent 400 with 5 PEEP on 50% FiO2 along with Leukocytosis of 13.1K withLeft-shift of 2.9% and Lactic Acidosis of 3.2 mmol/L concerning for Sepsis in addition to Transaminitis; AST 158 U/L, ALT 118 U/L and Alkaline Phosphatase 163U/L plus Hyperglycemia of 368 mg/dL present on admission. She was then admittedto the ICU for ongoing care for a stay that is expected to extend beyond 2 midnights. Palliative Assessment Advanced Directive - Current Admission Advance Directive: Advance Directive ON ADMISSION - REFERENCE 3 Do you have a Healthcare No 07/16/25 07:58 Living Will? Do you have a Healthcare Power No 07/16/25 07:58 of [employer] Applicator? Do You Want Additional Declined 07/16/25 07:58 Information on Advanced Directives or Healthcare Proxy/DPOA comments: Patient states that they do have legal paperworkand that her , her would be her decision-maker if she is unable to make decisions for herself. Psychosocial/Spiritual Information Living situation/Marital status: Spoke spoke with and 16-year-old grandson. Geographic location: [place] Supports: Family Evangelical/Grazyna or spiritual preference: Sikh Prior functional status: Patient was unable to do her own ADLs related to disease processes and shortnessof breath Assistive devices at home: Oxygen and walker Information about the patient as a person: Patient states that she enjoys being in her garden and her 4 cats and 2 dogs. None Symptoms Palliative performance scale: 50% Palliative prognostic index: 8.5 (if the PPI is greater than 6.0, survival is estimated to be less than 3 weeks.) Dyspnea symptoms: Severe Nausea symptoms: None Vomiting symptoms: None Depression symptoms: Mild Anorexia symptoms: Moderate Fatigue symptoms: Moderate Weakness symptoms: Moderate Confusion symptoms: None Objective Data Objective Data Vital Signs: Vital Signs Temp Pulse Resp BP Pulse Ox O2 Del Method O2 Flow Rate 98.6 F 116 H 25 H 147/68 H 98 Nasal Cannula 4 07/22/25 09:30 07/22/25 11:00 07/22/25 11:00 07/22/25 11:00 07/22/25 11:00 07/22/25 11:00 07/22/25 11:00 FiO2 91 07/22/25 06:46 Oxygen Flow Rate (L/min) 4 Oxygen Delivery Method Nasal Cannula Weight: 111 lb 12.39 oz Body Mass Index (BMI) 19.1 Intake & Output: Intake and Output for Last 24 Hours 07/20/25 07/21/25 07/22/25 23:59 23:59 23:59 Intake Total 2358.52 / 2467.62 2303.71 / 2322.46 2727.08 / 2727.08 Output Total 2475 / 2475 3050 / 3050 5350 / 5350 Balance -116.48 / -7.38 -746.29 / -727.54 -2622.92 / -2622.92 Lab / Micro Data Attestation: I reviewed the patient's lab results. 07/22/25 04:45 07/22/25 04:45 Labs: Laboratory Results - last 24 hr 07/21/25 11:55: POC Glucose 126 H 07/21/25 17:06: POC Glucose 49 L 07/21/25 17:33: POC Glucose 202 H 07/21/25 18:24: POC Glucose 52 L 07/21/25 23:19: POC Glucose 82 07/22/25 04:45: WBC 11.8 H, RBC 3.71 L, Hgb 10.7 L, Hct 32.9 L, MCV 88.7, MCH 28.8, MCHC 32.5, RDW Std Deviation 49.1 H, RDW Coeff of Shivam 15.3 H, Plt Count 452 H, MPV 9.5, Immature Gran % (Auto) 2.500 H, Neut % (Auto) 84.7 H, Lymph % (Auto) 8.4 L, [place] % (Auto) 4.1, Eos % (Auto) 0.0, Baso % (Auto) 0.3, Absolute Neuts (auto) 10.0 H, Absolute Lymphs (auto) 1.00, Nucleated RBC % 0, Sodium 142,Potassium 3.2 L, Chloride 106, Carbon Dioxide 22.3, Anion Gap 14, BUN 30 H, Creatinine 0.76, Estim Creat Clear Calc 52.85, Est GFR (MDRD) Non-Af 84, BUN/Creatinine Ratio 39.5 H, Glucose 160 H, Calcium 8.3 07/22/25 05:43: POC Glucose 169 H 07/22/25 06:40: POC Glucose 174 H 07/22/25 11:03: POC Glucose 233 H Micro: Microbiology 07/16/25 04:20 Blood Culture (Wb) - Left Hand Blood Culture - Final No growth in 5 days. 07/16/25 04:05 Blood Culture (Wb) - Right Hand Blood Culture - Final No growth in 5 days. 07/16/25 03:44 Urine, Catheterized Urine Culture - Final Culture exhibits no growth. 07/16/25 03:36 Sputum, Induced/Lukens Gram Stain - Final 07/16/25 03:36 Sputum, Induced/Lukens Respiratory Culture - Final Mixed normal respiratory renu. No Streptococcus pneumoniae, beta-hemolytic Streptococcus or Staphylococcus aureus isolated. 07/16/25 10:30 Nasal Secretion MRSA (PCR) - Final 07/16/25 09:20 Mucosa - Nasopharyngeal Respiratory Panel (PCR) - Final 07/16/25 08:25 Urine Catheter - Madrigal Legionella Antigen - Final 07/16/25 08:25 Urine Catheter - Madrigal Streptococcus pneumoniae Antigen (M - Final 07/16/25 03:44 Mucosa - Nose SARS-CoV-2, Influenza & RSV (PCR) - Final Rhythm Strip Rhythm Strip: Sinus Tach Rate: 114 Impressions & Recommendations Patient & Family Issues discussed with the patient and family: Goals of care going forward and CODE STATUS Patient goal: Patient is open to going to SNF for rehab. Considering changing CODE STATUS but for now continues to be a full code. Requesting palliative careoutpatient Family goal: Family wants to support their mother. Patient's family likes the idea of palliative care outpatient and they are going to talk to the mother about CODE STATUS. Ethical & Legal Ethical and legal: None Impressions Impressions: Patient wants to continue aggressive medical management although she would be a hospice candidate if she so chooses. She has elected palliative care outpatient. Recommentation Palliative recommendations: Outpatient palliative care services. Encouter Achieved as a result of this Palliative Care Encounter: [[id number], [phone] ] minutes were spent in total for this visit which consisted, primarily of counseling and education dealing with the complex and emotionally intense issues of symptom management and palliative care in the setting of serious and potentially life-threatening illness. Review of documentation, labs and radiological studies. ?Patient/family had the opportunity to ask questions Plan (1) Acute respiratory failure with hypoxia and hypercapnia: PLAN: Medical management per primary team (2) Pneumonia: QUALIFIERS: Pneumonia type: due to unspecified organism Laterality: bilateral Lung location: unspecified part of lung Qualified Code(s): J18.9 - Pneumonia, unspecified organism PLAN: Medical management per primary team (3) Elevated troponin: PLAN: Medical management per primary team (4) Transaminitis: PLAN: Medical management per primary team (5) CHF exacerbation: QUALIFIERS: Heart failure type: unspecified Qualified Code(s): I50.9 - Heart failure, unspecified PLAN: Medical management per primary team (6) COPD exacerbation: PLAN: Medical management per primary team (7) Counseling regarding goals of care: PLAN: *Extensive discussion about the benefits versus burdens of CPR. *Discussion about smoking cessation *Patient wants to continue aggressive medical management (8) Palliative care encounter: PLAN: *Referral to palliative care outpatient services with [facility] *Palliative care will continue to follow for goals of care conversations as clinical picture evolves. 07/22/25 1314 <Electronically signed by Apple KOHLI> Cosigner Signature (if applicable): CC: SEUN Ozuna~ Signed [facility] Work Phone: Consult note Author Kendall Doran [facility] Note Date/Time July 26, 2025 4: 11pm [facility] Medical Records Department [address] [place] [address] Consultation - Cardiology 07/26/25 1609 MR#: [id number] Acct: [id number] Name: ZABRINA HSU Rep #:[id number] : 1955 70 From: Kendall be MD PCP: SEUN Alvarez Status:DIS IN Location: [facility] GGR630- 1 Assessment & Plan Assessment/Plan (1) Multifocal atrial tachycardia: PLAN: Patient's heart rate is currently controlled. Continue current medications at this time. She can follow-up with [facility] as an outpatient. HPI Consult Data Date of Consult: 07/26/25 HPI Narrative Reason for Consultation: Tachycardia HPI Narrative: ZABRINA HSU, is a 70 F who presented with respiratory failure. She has improved and cardiology consult was requested as she was having episodes of tachycardia. Telemetry was reviewed and it appears that she was having multifocal atrial tachycardia during these episodes. Underlying rhythm appears to be wandering atrial pacemaker. Her metoprolol was increased and she has responded well to this with improvement in her heart rate. 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 Non-rheumatic mitral regurgitation Depression Anxiety Pulmonary hypertension Essential hypertension Pure hypercholesterolemia Atherosclerotic heart disease of [place] coronary artery without angina pectoris Home Medications ?Medication ?Instructions ?Recorded ?Last Taken ?Type aspirin 81 mg tablet,delayed 81 mg PO DAILY heart 06/23 04/10 Unknown History release (Adult Low Dose Aspirin) atorvastatin 40 mg tablet 40 mg PO QHS cholestrol 06/23 04/10 Unknown History nitroglycerin 0.4 mg sublingual 0.4 mg sublingual Q5-1 5M PRN chest 07/08/19 Unknown History tablet pain oxybutynin chloride 10 mg 10 mg PO DAILY overactive bl add 07/08/19 Unknown History tablet,extended release 24 hr albuterol sulfate 90 mcg/actuation 2 puff inhalation Q 4H PRN 12/23/20 Unknown Rx aerosol inhaler (Ventolin HFA) shortness of breath or wheezing #8.5 grams brimonidine 0.2 % eye drops ml ophthalmic (eye) eyes 0 06/16/21 Unknown History dorzolamide 2 % eye drops 1 drp ophthalmic (eye) TID e yes 06/16/21 Unknown History lisinopril 20 mg tablet 20 mg PO DAILY #90 tabs 05/24 03/12 Unknown Rx clopidogrel 75 mg tablet 75 mg PO DAILY heart 5 Unknown History furosemide 40 mg tablet 40 mg PO DAILY heart 5 Unknown History OXYGEN - Supplemental ([facility] COPD 07/18/25 Unknown Histo ry INFORMATIONAL USE ONLY) amlodipine 10 mg tablet 10 mg PO DAILY #30 tabs 02/14 Unknown Rx metoprolol tartrate 50 mg tablet 50 mg PO BID #60 tabs 07/26/25 Unknown Rx prednisone 20 mg tablet 40 mg (2 x 20 mg) PO BREAKFA ST #2 07/26/25 Unknown Rx tabs Allergy/AdvReac Type Severity Reaction Status Date / Time No Known Allergies Allergy Unverified 06/16/21 14:41 Family History Mother Diabetes Surgical History History of coronary artery stent placement (01/02/17) History of hysterectomy Social History Smoking Status: Current every day smoker tobacco type: cigarettes Tobacco: How many years used: 46 second hand exposure: Yes alcohol intake: never substance use type: does not use caffeine: Yes Type: coffee Physical Exam Const alert and oriented x3 HEENT normocephalic Eyes no scleral icterus Resp normal respiratory effort Objective Data Vital Signs: Vital Signs Temp Pulse Resp BP Pulse Ox O2 Del Method O2 Flow Rate 97 F L 72 18 140/82 H 100 Room Air 2 07/26/25 13:37 07/26/25 13:37 07/26/25 13:37 07/26/25 13:37 07/26/25 13:37 07/26/25 13:37 07/24/25 16:39 FiO2 99 07/23/25 07:25 Oxygen Flow Rate (L/min) 2 Oxygen Delivery Method Room Air Weight: 100 lb 8.493 oz Body Mass Index (BMI) 17.2 Intake & Output: Intake and Output for Last 24 Hours 07/24/25 07/25/25 07/26/25 23:59 23:59 23:59 Intake Total 355 / 355 Output Total 450 / 450 Balance -450 / -450 355 / 355 Lab / Micro Data 07/26/25 05:55 07/26/25 05:55 Labs: Laboratory Results - last 24 hr 07/25/25 16:20: D-Dimer Quant (PE/DVT) 1.10 H* 07/25/25 17:12: POC Glucose 163 H 07/25/25 23:13: POC Glucose 114 H 07/26/25 05:46: POC Glucose 101 07/26/25 05:55: WBC 10.4, RBC 3.39 L, Hgb 9.6 L, Hct 28.6 L, MCV 84.4, MCH 28.3,MCHC 33.6, RDW Std Deviation 43.3, RDW Coeff of Shivam 14.0, Plt Count 482 H, MPV 9.6, Immature Gran % (Auto) 2.900 H, Neut % (Auto) 59.4, Lymph % (Auto) 27.0, [place] % (Auto) 9.7, Eos % (Auto) 0.9, Baso % (Auto) 0.1, Absolute Neuts (auto) 6.2, Absolute Lymphs (auto) 2.80, Nucleated RBC % 0, Sodium 135, Potassium 2.8 L, Chloride 96 L, Carbon Dioxide 25.7, Anion Gap 13, BUN 21 H, Creatinine 0.70, Estim Creat Clear Calc 46.43 L, Est GFR (MDRD) Non-Af 92, BUN/Creatinine Ratio 30.2 H, Glucose 98, Calcium 8.9, Magnesium 2.2 Rhythm Strip Rhythm Strip: Sinus Tach Rate: 114 Cardiology Labs/Tests 07/25/25 16:20: D-Dimer Quant (PE/DVT) 1.10 H* 07/26/25 05:55: WBC 10.4, RBC 3.39 L, Hgb 9.6 L, Hct 28.6 L, MCV 84.4, MCH 28.3,MCHC 33.6, Plt Count 482 H, MPV 9.6, Immature Gran % (Auto) 2.900 H, Neut % (Auto) 59.4, Lymph % (Auto) 27.0, [place] % (Auto) 9.7, Eos % (Auto) 0.9, Baso % (Auto) 0.1, Absolute Neuts (auto) 6.2, Nucleated RBC % 0, Sodium 135, Potassium 2.8 L, Chloride 96 L, Carbon Dioxide 25.7, Anion Gap 13, BUN 21 H, Creatinine 0.70, Est GFR (MDRD) Non-Af 92, BUN/Creatinine Ratio 30.2 H, Glucose 98, Calcium8.9, Magnesium 2.2 Rhythm: EKG: ECHO: Stress Test: Cardiac Cath: PCI: CT Surgery: Holter monitor: EPS: PPM: CXR: Chest CT Scan: Radiography Diagnostic Testing: Radiology Impression Chest CTA 07/25/25 17:41 IMPRESSION: 1. No evidence of pulmonary embolism. 2. No focal lung consolidation. 3. Interval resolution of bilateral pleural effusions. 4. Atherosclerotic disease of the thoracic aorta. Reading Location: [facility] Risk Score for UA/STEMI Assesmment (YES = 1) Risk Stratification Applicable: No 07/26/25 1611 <Electronically signed by Kendall Doran MD> Cosigner Signature (if applicable): CC: SEUN Ozuna~ Signed [facility] Work Phone: Discharge summary Author Bernardo Sharif [facility] Note Date/Time July 16, 2025 7:03am [facility] Medical Records Department [address] [place] [address] Emergency Department Summary 07/16/25 MR#: [id number] Acct: [id number] Name: ZABRINA HSU Rep #:[id number] : 1955 70 From: Bernardo Small PCP: SEUN Alvarez Status:REG ER Location: ED HPI History of Present Illness Chief Complaint: Shortness of Breath PFSH PFSH Medical History Anxiety 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 Depression Essential hypertension Myocardial fibrosis Non-rheumatic mitral regurgitation Pulmonary hypertension Pure hypercholesterolemia Home Medications ?Medication ?Instructions ?Recorded ?Last Taken ?Type aspirin 81 mg tablet,delayed 81 mg PO DAILY 07/08/19 U nknown History release (Adult Low Dose Aspirin) atorvastatin 40 mg tablet 40 mg PO QHS PRN 07/08/19 Un known History nitroglycerin 0.4 mg sublingual 0.4 mg sublingual Q5-1 5M PRN chest 07/08/19 Unknown History tablet pain oxybutynin chloride 10 mg 10 mg PO DAILY 07/08/19 Unkn own History tablet,extended release 24 hr venlafaxine 75 mg tablet 75 mg PO BID 07/08/19 Unknow n History albuterol sulfate 90 mcg/actuation 2 puff inhalation Q 4H PRN 12/23/20 Unknown Rx aerosol inhaler (Ventolin HFA) shortness of breath or wheezing #8.5 grams brimonidine 0.2 % eye drops ml ophthalmic (eye) Unknown History dorzolamide 2 % eye drops 1 drp ophthalmic (eye) TID 0 06/16/21 Unknown History lisinopril 20 mg tablet 20 mg PO DAILY #90 tabs 05/24 03/12 Unknown Rx Allergy/AdvReac Type Severity Reaction Status Date / Time No Known Allergies Allergy Unverified 06/16/21 14:41 Family History Mother Diabetes Surgical History History of coronary artery stent placement (01/02/17) History of hysterectomy Social History Smoking Status: Current every day smoker tobacco type: cigarettes Tobacco: How many years used: 46 second hand exposure: Yes alcohol intake: never substance use type: does not use caffeine: Yes Type: coffee MDM MDM MDM Narrative Medical decision making narrative: HISTORY OF PRESENT ILLNESS: Chief complaint: Shortness of breath 70-year-old female history of COPD, pulm hypertension, anemia, hypertension, hypertrophic cardiomyopathy, myocardial fibrosis, CAD status post stent presentswith shortness of breath. Patient is an extremis and cannot provide reliable history. Per EMS patient was initially 60% on home O2. Per EMS patient got 2 rounds of duo/nebs and 125 mg of solumedrol. REVIEW OF SYSTEMS: Unable to obtain reliable review of system secondary to altered mental status PHYSICAL EXAM: Nursing triage notes reviewed, Vital signs reviewed Constitutional: please see mdm HENT: MMM Eyes: Pupils equal round and reactive to light, Extraocular muscles intact Neck: Positive JVD Lungs: Tight lungs, wheezes/rales throughout, increased work of breathing, severe respiratory distress Heart: Reg fast regular rate Abdomen: Soft, no distention : No CVAT Extremities: No edema Neuro: Groans to painful stimuli, Skin: No rash or lesions noted MEDICAL DECISION MAKING: Chief Complaint: please see [facility] External records reviewed: Reviewed prior echocardiogram from 2017 which showed ejection fraction 65%. Reviewed recent hospitalization. Patient was admitted to [facility] from 06/16/2025 until 06/25/2025 for acute on chronic respiratory failure hypoxia. Acute pulmonary edema, NSTEMI, COPD exacerbation. This time patient suffered respiratory failure required mechanical ventilation. Factors affecting care: As per HPI Social determinants of health: none History obtained from others: EMS Consults: Internal Medicine (Dr. Haile) [facility] Narrative: The patient was initially hypertensive blood pressure initially 257/98, tachypneic respirate of 30, and extreme respiratory distress with altered mentalstatus requiring immediate airway intervention in the form endotracheal intubation. Please see below procedure note. I considered the following differential diagnosis: Flash pulmonary edema, COPD exacerbation, ACS, arrhythmia, anemia, COVID, RSV, flu, pneumonia I obtained a broad lab and imaging workup to further determine if the patient was suffering from a life-threatening etiology. Also obtained a CT scan of the head given altered mental status. CTA of the chest given extreme respiratory distress. Also obtained an ABG given requirement for intubation. ALL IMAGES (IF OBTAINED) HAVE BEEN PERSONALLY REVIEWED AND INTERPRETED BY MYSELF. EKG with sinus tachycardia rate of 105, normal axis, normal intervals, no obvious STEMI, occasional PVCs, Patient was noted to continue to be significantly hypertensive raising the specter of flash pulmonary edema. Patient was started on nitroglycerin drip at 100 mcg/min. After approximately 5minutes on the nitroglycerin drip she continued to be hypertensive and placed out of adequate sedation so she was given 100 mg bolus of propofol, 5 mg bolus of Versed and started on Versed drip. ABG showed significant respiratory acidosis with a pH of 7.058, CO2 of 75 consistent with CO2 retention from likely COPD exacerbation CBC with leukocytosis suggestive of system inflammation, mild anemia, no thrombocytopenia BMP without significant electrolyte disturbances, no SANTO, no sign of endorgan hypoperfusion or metabolic acidosis. Serum glucose elevated BNP elevated consistent with volume overload and heart failure COVID/RSV/flu is negative LFTs with elevation in liver enzymes consistent with likely volume overload fromCHF exacerbation Initial troponin elevated consistent with myocardial ischemia is likely a type II demand ischemia given hypoxia significant acidosis initial lactate elevated consistent endorgan hypoperfusion likely secondary to hypoxia Patient remained hypertensive despite propofol drip, nitroglycerin drip. She was given a dose of bicarb given acidosis and given 20 mg IV labetalol. After IV labetalol patient blood pressure crash. Blood pressure was as low as 78 systolic. This quickly rebounded to 140 systolic after discontinuing propofol drip decrease patient's tidal volume slightly. Discussed case with hospitalist Dr. Hess who agreed admit the patient as long as CT scans of head and chest did not show diagnosis that needed transfer to higher level of care. He recommended giving broad-spectrum antibiotics givenSIRS and sepsis criteria. Gave vancomycin and Zosyn. Also recommend repeating ABG which was also ordered. CT of the chest was negative for acute PE, thoracic aortic aneurysm. Noted underlying for Zima, superimposed CHF, pneumonitis and bronchitis noted. CT scan of the brain showed no evidence of ICH. Patient is appropriate for admission here at [facility] to intensive care unit. Dr. Hess added on a CT scan of the abdomen pelvis is pending at this time. The procedure was performed by myself. Indications: Acute respiratory distress, altered mental status Procedure Description: Patient was preoxygenated with BiPAP. Patient in supine position. Of note during intubation white frothy pulmonary expectorate was noted in the posterior oropharynx. Use video laryngoscopy with a 4.0 hyperventilated Mac blade to place an 8.0 ET tube through the cords. First pass success. No immediate complications. Post intubation pulse ox was initially 80% but quickly improved to 100%. Post-Procedure Assessment: Tracheal intubation was confirmed with breath sounds auscultated equally bilaterally; appropriate color change with end tidal CO2 detector and waveform capnography. The patient tolerated the procedure well with no immediate complications. The patient and/or family, caregivers express understanding. The patient and/orfamily, caregivers agrees with the plan. Shared decision making: I will have a discussion with the patient and or visitors regarding risk/benefits of further testing or admission. They will be made aware of of the risk/benefits inherent in this decision they will be given the opportunity to voice understanding. Total critical care time today provided was at least 60 minutes. This excludes separately billable procedures. Critical care time (if documented) is secondary to the patient having high probability of clinically significant/life threatening deterioration in the patient's condition which required my urgent intervention. Impression: 1. Acute hypoxic respiratory failure 2. Hypertensive emergency 3. Flash pulmonary edema 4. COPD exacerbation Dispo: Admit to ICU This note was generated with Card[employer] dictation software. It may contain incorrectwords, spelling, and punctuation that were not noted in review of the chart prior to signing. Discharge Plan Triage Chief Complaint: Shortness of Breath ED Provider: Bernardo Sharif Dx/Rx/DC Orders Prescriptions: No Action nitroglycerin 0.4 mg tablet, sublingual 0.4 mg SUBLINGUAL Q5-15M PRN (Reason: chest pain) aspirin [Adult Low Dose Aspirin] 81 mg tablet,delayed release (DR/EC) 81 mg PO DAILY atorvastatin 40 mg tablet 40 mg PO QHS PRN venlafaxine 75 mg tablet 75 mg PO BID oxybutynin chloride 10 mg tablet extended release 24hr 10 mg PO DAILY albuterol sulfate [Ventolin HFA] 90 mcg/actuation HFA aerosol inhaler 2 puff INHALATION Q4H PRN (Reason: shortness of breath or wheezing) Qty: 8.5 6RF brimonidine 0.2 % drops ophthalmic (eye) dorzolamide 2 % drops 1 drp ophthalmic (eye) TID lisinopril 20 mg tablet 20 mg PO DAILY Qty: 90 3RF Primary Care Provider: Alfonso Ozuna NP Referrals: Alfonso Ozuna GEOSCIENTIST, GEOSCIENTIST-C [Primary Care Provider, Family Practice] Print Language: Somali What to do if you have Problems For any increased pain, shortness of breath, bleeding, nausea or vomiting, chestpain, or any unexpected problems, contact your Primary Care Provider. Call [facility] ([phone]) or report to the closest Emergency Room. Call 911 if necessary. 07/16/25 0703 <Electronically signed by Bernardo Sharif DO> Cosigner Signature (if applicable): CC: SEUN Ozuna ~ Signed [facility] Work Phone: Evaluation note* Diagnosis Chronic obstructive pulmonary disease, unspecified COPD type (CMS/HCC)- Primary 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, unspecified vessel or lesion type (CMS/HCC) Primary hypertension Unspecified essential hypertension Congestive heart failure, unspecified HF chronicity, unspecified heart failure type (CMS/HCC) documented in this encounter [facility] Work Phone: Evaluation note* Diagnosis Primary hypertension- Primary Unspecified essential hypertension Congestive heart failure, unspecified HF chronicity, unspecified heart failure type 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, unspecified vessel or lesion type Chronic obstructive pulmonary disease, unspecified COPD type (Multi) Health maintenance examination Unspecified general medical examination documented in this encounter [facility] Work Phone: Evaluation note* Diagnosis Onset Date Resolution Status Admit Date Acute hypoxic on chronic hypercapnic respiratory failure acute July 16, 2025 6:21am Acute respiratory failure hypoxia and hypercapnia acute Junembe r 2024 6:21am Counseling regarding goals o f care acute July 16, 2025 6:21am Elevated troponin acute Septemb er 2024 6:21am Hyperglycemia acute June 242024 6:21am Hypertensive emergency acute Se ptember 2024 6:21am Lactic acidosis acute July 16, 2025 6:21am Leukocytosis acute July 162024 6:21am Palliative care encounter acute July 16, 2025 6:21am Pneumonia acute June 6:21am Sepsis acute June 6:21am Transaminitis acute June 242024 6:21am CHF exacerbation chronic Septembe r 2024 6:21am [facility] Work Phone: Hospital course Narrative No data available for this section [facility] Progress note Author Gerard Santos [facility] Note Date/Time July 16, 2025 12:12pm [facility] Medical Records Department [address] [place] [address] Progress Note - Hospitalist 07/16/25 1200 MR#: [id number] Acct: [id number] Name: ZABRINA HSU Rep #:[id number] 42 : 1955 70 From: Gerard Santos DO PCP: SEUN Alvarez Status:ADM IN Location: ICU ICU01-1 Reason for Visit Chief Complaint: SOB. Subjective Subjective Still on the vent. Veresed changed to fentanyl and BP has improved. Objective Data Objective Data Vital Signs: Vital Signs Temp Pulse Resp BP Pulse Ox O2 Del Method O2 Flow Rate 37.2 C 60 20 H 139/70 H 96 Mechanical Ventilator 15 07/16/25 09:00 07/16/25 11:15 07/16/25 11:15 07/16/25 10:00 07/16/25 11:15 07/16/25 10:00 07/16/25 03:10 FiO2 40 07/16/25 11:15 Oxygen Flow Rate (L/min) 15 Oxygen Delivery Method Mechanical Ventilator Weight: 53.5 kg Body Mass Index (BMI) 20.1 Intake & Output: Intake and Output for Last 24 Hours 07/14/25 07/15/25 07/16/25 23:59 23:59 23:59 Intake Total 788.24 / 788.24 Output Total 1750 / 1750 Balance -961.76 / -961.76 Lab / Micro Data 07/16/25 03:20 07/16/25 03:20 Labs: Laboratory Results - last 24 hr 07/16/25 03:20: WBC 13.1 H, RBC 3.95 L, Hgb 11.6 L, Hct 37.9, MCV 95.9, MCH 29.4, MCHC 30.6 L, RDW Std Deviation 51.3 H, RDW Coeff of Shivam 14.6, Plt Count 411, MPV 9.7, Immature Gran % (Auto) 2.900 H, Neut % (Auto) 30.6 L, Lymph % (Auto) 56.5 H, [place] % (Auto) 6.4, Eos % (Auto) 2.7, Baso % (Auto) 0.9, Absolute Neuts (auto) 4.0, Absolute Lymphs (auto) 7.43 H, Nucleated RBC % 0, DifferentialComment SCANNED, Sodium 137, Potassium 3.7, Chloride 100, Carbon Dioxide 21.7, Anion Gap 15, BUN 17, Creatinine 1.27 H, Estim Creat Clear Calc 34.32 L, Est GFR(MDRD) Non-Af 45 L, BUN/Creatinine Ratio 13.1, Glucose 368 H, Calcium 8.5, Magnesium 2.8 H, Total Bilirubin 0.34, AST 158 H, ALT 118 H, Alkaline [id number] H, Total Creatine Kinase 126, Troponin T High Sens 114 H*, NT pro BNP II 7963 H, Total Protein 6.9, Albumin 3.8, Globulin 3.1, Albumin/Globulin Ratio 1.2, Triglycerides 67 07/16/25 04:20: Lactic Acid 3.2 H* 07/16/25 05:29: Troponin T Hi Sens 2 Hr 95 H*, Triglycerides 99, Cholesterol 233H, LDL Cholesterol, Calc 146, VLDL Cholesterol 20, HDL Cholesterol 67, Cholesterol/HDL Ratio 3.49 07/16/25 08:25: Urine Color Straw, Urine Clarity Clear, Urine pH 7.0, Ur Specific [place] 1.005, Urine Protein 30 H, Urine Glucose (UA) Normal, Urine Ketones Negative, Urine Occult Blood 10 H, Urine Nitrite Negative, Urine Bilirubin Negative, Urine Urobilinogen Normal, Ur Leukocyte Esterase Negative, Urine RBC 0 SEEN, Urine WBC 0 SEEN, Ur Squamous Epith Cells 0 SEEN, Urine Bacteria 0 SEEN, Urine Mucus 0 SEEN 07/16/25 08:50: Lactic Acid 1.4, Troponin T Hi Sens 4Hr 93 H* 07/16/25 11:24: POC Glucose 152 H Micro: Microbiology 07/16/25 08:25 Urine Catheter - Madrigal Legionella Antigen - Final 07/16/25 08:25 Urine Catheter - Madrigal Streptococcus pneumoniae Antigen (M - Final 07/16/25 03:36 Sputum, Induced/Lukens Gram Stain - Final 07/16/25 03:44 Mucosa - Nose SARS-CoV-2, Influenza & RSV (PCR) - Final ABG Data ABG results: ABG 07/16/25 07/16/25 03:58 09:42 Specimen Type ART ART Sample Site L Radial L Radial pH 7.06 L* 7.49 H Bicarbonate Actual 21.2 L 29.1 H Total CO2 24 30 Base Excess -9 L 6 H O2 Saturation 86 L 98 O2 % 50.0 50.0 ABG pCO2 75.1 H* 38.6 ABG pO2 73 L 96 Judith Test N/A N/A Respiration Rate 20 20 O2 Delivery Device Adult Vent Adult Vent Vent Mode AC AC Tidal Volume 400.0 400.0 POC PEEP 5 5 Crit Call To/Read Back Yes Blood Gas Notified Whom Dr Sharif Blood Gas Notified Time 04:00:19 Radiography Diagnostic Testing: Radiology Impression Brain CT 07/16/25 03:25 IMPRESSION: There is low-density in the deep white matter on the right and left, and in the right occipital lobe consistent with chronic ischemic change. No acute intracranial pathology. Consider MRI with diffusion scan, or CT perfusion to exclude an acute component. Reading Location: [facility] Chest CTA 07/16/25 03:25 IMPRESSION: No demonstrated PE, or thoracic aortic aneurysm Underlying emphysema with superimposed CHF, pneumonitis, bronchitis, free- flowing bilateral pleural effusions and bibasilar atelectasis ETT tip is in the right mainstem bronchus and should be retracted 3-4 cm, NG tube tip in satisfactory position No suspicious adenopathy Degenerative bony changes [place] Alert: ET tube tip in the SADAF The critical findings in the findings and impression above were relayed directlyby me by telephone to Bernardo Sharif on 07/16/2025 at 6:56 am with readback verification. Reading Location: [id number] Echocardiogram 07/16/25 06:31 Interpretation Summary Mild concentric left ventricular hypertrophy. Inferior hypokinesis. Estimated LVEF 55%. Stage I diastolic dysfunction. Moderate posterior mitral valve annular calcification. Calcified chord. Mild mitral valve regurgitation. Mild tricuspid valve insufficiency. Mildly calcified aortic valve leaflets. Aortic valve sclerosis without stenosis. Mild (1+) pulmonic valve insufficiency. Ordering Physician: Jack Zuniga Performed By: Jake Miguel RCS Abdomen/Pelvis CT 07/16/25 06:40 IMPRESSION: No suspicious solid organ abnormality, there is atrophy of the right kidney compared to the left but no obstructive uropathy or suspicious solid renal lesion. Retained stool throughout the colon which may be impacted No free intraperitoneal fluid, air, or suspicious adenopathy NG tube tip in the body of the stomach Diffuse atherosclerosis Degenerative bony changes Reading Location: [facility] Chest X-Ray 07/16/25 09:05 IMPRESSION: Tubes and lines in position. There interstitial infiltrates in the perihilar region bilaterally and in the left upper lung. Reading Location: [facility] Physical Exam Const Constitutional Narrative: intubated. sedated. cachectic. HEENT head/scalp atraumatic HEENT Narrative: ETT OGT Resp Resp Narrative: coarse breath sounds bilaterally. Cardio regular rate, regular rhythm, S1 normal heart sound and S2 normal heart sound GI normal to inspection, nondistended, normoactive bowel sounds, soft to palpation,non-tender and non-distended Extremity normal to inspection and full ROM Assessment & Plan Assessment/Plan (1) COPD exacerbation: (2) Pneumonia: QUALIFIERS: Pneumonia type: due to unspecified organism Laterality: bilateral Lung location: unspecified part of lung Qualified Code(s): J18.9 - Pneumonia, unspecified organism (3) Acute hypoxic on chronic hypercapnic respiratory failure: (4) CHF exacerbation: QUALIFIERS: Heart failure type: unspecified Qualified Code(s): I50.9 - Heart failure, unspecified (5) Elevated troponin: (6) Hypertensive emergency: (7) Sepsis: QUALIFIERS: Sepsis type: sepsis due to unspecified organism Sepsis acute organ dysfunction status: with acute organ dysfunction Severe sepsis acute organ dysfunction type: acute respiratory failure Acute respiratory failure type: with hypercapnia Severe sepsis shock status: without septic shock Qualified Code(s): A41.9 - Sepsis, unspecified organism; R65.20 - Severe sepsis without septic shock; J96.02 - Acute respiratory failure with hypercapnia (8) Leukocytosis: QUALIFIERS: Leukocytosis type: bandemia Qualified Code(s): D72.825 - Bandemia (9) Lactic acidosis: (10) Transaminitis: (11) Hyperglycemia: PLAN: Plan Acute Hypoxic and Hypercapnic Respiratory Failure * ABG pH 7.06/ PCO2 75.1 mmHg/ PO2 73 mmHg/ HCO3 21.2 mmHg @ 86% on * ventilator * CCM for vent mgmt * 2/2 to AECOPD, AECHF, possible pneumonia * on empiric abx. * respiratory panel, legionella strep antigens negative AECOPD: * Start IV methylprednisolone and give scheduled plus prn nebulizers. Acute HFpEF * concern for flash pulmonary edema. * EF 55% on echo from 07/16/2025 * on IV furosemide. Elevated troponin * trending down. No wall motion abnormality on echo. Hypertensive emergency * elevated blood pressure of 257/127 mmHg with concerns for flash pulmonary edema. * On IV furosemide and PRN hydralazine. Hyperglycemia * of 368 mg/dL present on admission suspicious for DM-2 adding to the burden of disease Check HgbA1c to confirm suspicion of DM-2. Check FSBS q. 4 hours and cover with SSI. Chronic conditions: * CAD; s/p stents x 3 RCA + LAD x 1 (2017) on BASA plus prn SL NTG - Continue BASA daily and serialize troponin. 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 * Hyperlipidemia; on atorvastatin - Maintain statin and check Lipid Profile. * OAB; on oxybutynin - Continue present therapy. * Depression; on venlafaxine - Restart this agent after extubation. * Glaucoma; on brimonidine daily and dorzolamide eyes drops TID - Maintain current therapy. DVT/GI prophylaxis - Lovenox 40 mg sq daily plus SCD's. Pantoprazole 40 mg IV daily. DW family at bedside. Charges/Coding Procedures Hospitalists Procedures: Other Procedure - See Report (Nonbillable rounding as patient was admitted after midnight.) 07/16/25 1212 <Electronically signed by Gerard Santos DO> Cosigner Signature (if applicable): CC: ~ Signed [facility] Work Phone: Progress note Author Gerard Santos [facility] Note Date/Time July 17, 2025 12:53pm [facility] Medical Records Department [address] [place] [address] Progress Note - Hospitalist 07/17/25703 MR#: [id number] Acct: [id number] Name: ZABRINA HSU Rep #:[id number] 20 : 1955 70 From: Gerard Santos DO PCP: SEUN Alvarez Status:ADM IN Location: ICU ICU01-1 Reason for Visit Chief Complaint: SOB. Subjective Subjective Attempting to pull ETT, so sedation changed from propofol to dexmedetomidine. Objective Data Objective Data Vital Signs: Vital Signs Temp Pulse Resp BP Pulse Ox O2 Del Method O2 Flow Rate 37.1 C 68 20 H 147/58 H 96 Mechanical Ventilator 94 07/17/25 06:00 07/17/25 06:47 07/17/25 06:47 07/17/25 06:00 07/17/25 06:47 07/17/25 06:00 07/17/25 01:00 FiO2 30 07/17/25 06:47 Oxygen Flow Rate (L/min) 94 Oxygen Delivery Method Mechanical Ventilator Weight: 47.287 kg Body Mass Index (BMI) 17.8 Intake & Output: Intake and Output for Last 24 Hours 07/15/25 07/16/25 07/17/25 23:59 23:59 23:59 Intake Total 1199.24 / 1242.49 215.77 / 215.77 Output Total 3125 / 3125 300 / 300 Balance -1925.76 / -1882.51 -84.23 / -84.23 Lab / Micro Data 07/17/25 06:30 07/17/25 06:30 Labs: Laboratory Results - last 24 hr 07/16/25 05:29: Triglycerides 99, Cholesterol 233 H, LDL Cholesterol, Calc 146, VLDL Cholesterol 20, HDL Cholesterol 67, Cholesterol/HDL Ratio 3.49 07/16/25 06:31: Hemoglobin A1c 6.1 H 07/16/25 08:25: Urine Color Straw, Urine Clarity Clear, Urine pH 7.0, Ur Specific [place] 1.005, Urine Protein 30 H, Urine Glucose (UA) Normal, Urine Ketones Negative, Urine Occult Blood 10 H, Urine Nitrite Negative, Urine Bilirubin Negative, Urine Urobilinogen Normal, Ur Leukocyte Esterase Negative, Urine RBC 0 SEEN, Urine WBC 0 SEEN, Ur Squamous Epith Cells 0 SEEN, Urine Bacteria 0 SEEN, Urine Mucus 0 SEEN 07/16/25 08:50: Lactic Acid 1.4, Troponin T Hi Sens 4Hr 93 H* 07/16/25 11:24: POC Glucose 152 H 07/16/25 13:18: POC Glucose 145 H 07/16/25 16:10: POC Glucose 124 H 07/16/25 21:45: POC Glucose 135 H 07/17/25 00:51: POC Glucose 153 H 07/17/25 06:21: POC Glucose 156 H Micro: Microbiology 07/16/25 10:30 Nasal Secretion MRSA (PCR) - Final 07/16/25 09:20 Mucosa - Nasopharyngeal Respiratory Panel (PCR) - Final 07/16/25 08:25 Urine Catheter - Madrigal Legionella Antigen - Final 07/16/25 08:25 Urine Catheter - Madrigal Streptococcus pneumoniae Antigen (M - Final 07/16/25 03:36 Sputum, Induced/Lukens Gram Stain - Final 07/16/25 03:44 Mucosa - Nose SARS-CoV-2, Influenza & RSV (PCR) - Final ABG Data ABG results: ABG 07/16/25 09:42 Specimen Type ART Sample Site L Radial pH 7.49 H Bicarbonate Actual 29.1 H Total CO2 30 Base Excess 6 H O2 Saturation 98 O2 % 50.0 ABG pCO2 38.6 ABG pO2 96 Judith Test N/A Respiration Rate 20 O2 Delivery Device Adult Vent Vent Mode AC Tidal Volume 400.0 POC PEEP 5 Radiography Diagnostic Testing: Radiology Impression Echocardiogram 07/16/25 06:31 Interpretation Summary Mild concentric left ventricular hypertrophy. Inferior hypokinesis. Estimated LVEF 55%. Stage I diastolic dysfunction. Moderate posterior mitral valve annular calcification. Calcified chord. Mild mitral valve regurgitation. Mild tricuspid valve insufficiency. Mildly calcified aortic valve leaflets. Aortic valve sclerosis without stenosis. Mild (1+) pulmonic valve insufficiency. Ordering Physician: Jack Zuniga Performed By: Jake Miguel RCS Abdomen/Pelvis CT 07/16/25 06:40 IMPRESSION: No suspicious solid organ abnormality, there is atrophy of the right kidney compared to the left but no obstructive uropathy or suspicious solid renal lesion. Retained stool throughout the colon which may be impacted No free intraperitoneal fluid, air, or suspicious adenopathy NG tube tip in the body of the stomach Diffuse atherosclerosis Degenerative bony changes Reading Location: [id number] Chest X-Ray 07/16/25 09:05 IMPRESSION: Tubes and lines in position. There interstitial infiltrates in the perihilar region bilaterally and in the left upper lung. Reading Location: [facility] Chest X-Ray 07/17/25 05:10 IMPRESSION: Tubes and lines in position. There are perihilar infiltrates in the right and left, improved. Reading Location: [facility] Physical Exam Const Constitutional Narrative: agitated but sedated. afebrile. HEENT head/scalp atraumatic and moist oral mucous membranes Resp normal respiratory effort, no retractions, no use of accessory muscles and clearto auscultation bilaterally Cardio regular rate, regular rhythm, S1 normal heart sound and S2 normal heart sound GI normal to inspection, nondistended, normoactive bowel sounds, soft to palpation,non-tender and non-distended Extremity normal to inspection Assessment & Plan Assessment/Plan (1) COPD exacerbation: (2) Pneumonia: QUALIFIERS: Laterality: bilateral Lung location: unspecified partof lung Pneumonia type: due to unspecified organism Qualified Code(s): J18.9 -Pneumonia, unspecified organism (3) Acute hypoxic on chronic hypercapnic respiratory failure: (4) CHF exacerbation: QUALIFIERS: Heart failure type: unspecified Qualified Code(s): I50.9 - Heart failure, unspecified (5) Elevated troponin: (6) Hypertensive emergency: (7) Transaminitis: PLAN: Plan Acute Hypoxic and Hypercapnic Respiratory Failure * ABG pH 7.06/ PCO2 75.1 mmHg/ PO2 73 mmHg/ HCO3 21.2 mmHg @ 86% on * ventilator * CCM for vent mgmt * 2/2 to AECOPD, AECHF, possible pneumonia * on empiric abx. * respiratory panel, legionella strep antigens negative AECOPD: * Start IV methylprednisolone and give scheduled plus prn nebulizers. Acute HFpEF * concern for flash pulmonary edema. * EF 55% on echo from 07/16/2025 * on IV furosemide. Elevated troponin * trending down. No wall motion abnormality on echo. Hypertensive emergency * improved * elevated blood pressure of 257/127 mmHg with concerns for flash pulmonary edema. * On IV furosemide and PRN hydralazine. Hyperglycemia * improved * a1c 6.1 * of 368 mg/dL present on admission suspicious for DM-2 adding to the burden of disease Check HgbA1c to confirm suspicion of DM-2. Check FSBS q. 4 hours and cover with SSI. Chronic conditions: * CAD; s/p stents x 3 RCA + LAD x 1 (2016) on BASA plus prn SL NTG - Continue BASA daily and serialize troponin. 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 * Hyperlipidemia; on atorvastatin - Maintain statin and check Lipid Profile. * OAB; on oxybutynin - Continue present therapy. * Depression; on venlafaxine - Restart this agent after extubation. * Glaucoma; on brimonidine daily and dorzolamide eyes drops TID - Maintain current therapy. DVT/GI prophylaxis - Lovenox 40 mg sq daily plus SCD's. Pantoprazole 40 mg IV daily. DW family at bedside. Charges/Coding Visit Charges Inpatient E&M: 56635 Subs Hosp L2 07/17/25 1253 <Electronically signed by Gerard Santos DO> Cosigner Signature (if applicable): CC: ~ Signed [facility] Work Phone: Progress note Author Eleazar Valle [facility] Note Date/Time July 17, 2025 10:00am [facility] Medical Records Department [address] [place] [address] Progress Note - Aoc Director Intelligence Officer 07/17/25 0737 MR#: [id number] Acct: [id number] Name: ZABRINA HSU Rep #:[id number] : 1955 70 From: Eleazar Valle DO PCP: SEUN Alvarez Status:ADM IN Location: ICU ICU01-1 Assessment & Plan Assessment/Plan (1) Acute respiratory failure with hypoxia and hypercapnia: PLAN: Plan RECOMMENDATIONS: 1. Continue assist-control mode of mechanical ventilation. Wean FiO2 and PEEP as tolerated. 2. Transition from propofol to Precedex to help facilitate weaning from invasive mechanical ventilatory support. 3. Continue empiric antimicrobials. 4. Continue scheduled bronchodilators and steroids. 5. Continue diuresis as tolerated by hemodynamics and renal function. 6. Okay to initiate tube feeding today for nutritional support. 7. Continue appropriate ICU prophylaxis. IMPRESSIONS: 1. Acute respiratory failure with hypoxemia and hypercapnia Most likely multifactorial in etiology. The patient has a known history of COPDand a longstanding tobacco abuse history, but presented to the emergency department profoundly hypertensive with what I suspect is a component of flash pulmonary edema. The patient was ultimately intubated in the emergency department. She will be continued on assist-control mode of mechanical ventilation, with a goal to wean FiO2 and PEEP to maintain saturations at or above 90%. Given that I cannot definitively rule out infection, we will plan to continue empiric antibiotics, pending culture results. She will be continued onscheduled bronchodilators and IV steroids as well. Diuretics will be continued,as tolerated by hemodynamics and renal function. The patient will be transitionfrom propofol to Precedex to help facilitate weaning from invasive mechanical ventilatory support. Plan to repeat spontaneous awakening and breathing trial tomorrow morning. 2. History of coronary artery disease status post PCI/history of hypertrophic cardiomyopathy/valvular heart disease Continue diuretics as tolerated by hemodynamics and renal function. 3. Chronic tobacco dependency/depression/glaucoma/hyperlipidemia Complicates care, management, recovery and prognosis. Continue supportive measures as noted above. PT/OT to work with the patient. Okay to initiate tubefeeding today from my perspective. TIME: 34 minutes of critical care time, independent of procedures, was spent addressing the patient's acute respiratory failure with hypoxemia and hypercapnia, review of all data and collaboration with the care team. Subjective Subjective The patient was seen and examined at the bedside this morning. Events from the last 24 hours have been reviewed. The patient is currently afebrile, hemodynamically stable and maintaining appropriate oxygen saturations on assist-control mode of mechanical ventilation with an FiO2 requirement of 30% and PEEP of 5. The patient failed her spontaneous awakening trial this morning after shebecame agitated with weaning of sedation. The patient was documented to be overall net -1.6 L for the hospitalization. Objective Data Objective Data The patient's most recent lab work, culture data and imaging studies have all been personally reviewed. Surface echocardiogram demonstrated mild concentric LVH with an ejection fraction of 55% and stage I diastolic dysfunction. Sputum,blood and urine cultures are pending. Vital Signs: Vital Signs Temp Pulse Resp BP Pulse Ox O2 Del Method O2 Flow Rate 98.7 F 67 20 H 157/63 H 95 Mechanical Ventilator 94 07/17/25 07:00 07/17/25 07:00 07/17/25 07:00 07/17/25 07:00 07/17/25 07:00 07/17/25 07:00 07/17/25 01:00 FiO2 45 07/17/25 07:00 Oxygen Flow Rate (L/min) 94 Oxygen Delivery Method Mechanical Ventilator Weight: 104 lb 4 oz Body Mass Index (BMI) 17.8 Intake & Output: Intake and Output for Last 24 Hours 07/15/25 07/16/25 07/17/25 23:59 23:59 23:59 Intake Total 1199.24 / 1242.49 236.27 / 236.27 Output Total 3125 / 3125 300 / 300 Balance -1925.76 / -1882.51 -63.73 / -63.73 Lab / Micro Data Attestation: I reviewed the patient's lab results. 07/16/25 03:20 07/17/25 06:30 Labs: Laboratory Results - last 24 hr 07/16/25 05:29: Triglycerides 99, Cholesterol 233 H, LDL Cholesterol, Calc 146, VLDL Cholesterol 20, HDL Cholesterol 67, Cholesterol/HDL Ratio 3.49 07/16/25 06:31: Hemoglobin A1c 6.1 H 07/16/25 08:25: Urine Color Straw, Urine Clarity Clear, Urine pH 7.0, Ur Specific [place] 1.005, Urine Protein 30 H, Urine Glucose (UA) Normal, Urine Ketones Negative, Urine Occult Blood 10 H, Urine Nitrite Negative, Urine Bilirubin Negative, Urine Urobilinogen Normal, Ur Leukocyte Esterase Negative, Urine RBC 0 SEEN, Urine WBC 0 SEEN, Ur Squamous Epith Cells 0 SEEN, Urine Bacteria 0 SEEN, Urine Mucus 0 SEEN 07/16/25 08:50: Lactic Acid 1.4, Troponin T Hi Sens 4Hr 93 H* 07/16/25 11:24: POC Glucose 152 H 07/16/25 13:18: POC Glucose 145 H 07/16/25 16:10: POC Glucose 124 H 07/16/25 21:45: POC Glucose 135 H 07/17/25 00:51: POC Glucose 153 H 07/17/25 06:21: POC Glucose 156 H Micro: Microbiology 07/16/25 10:30 Nasal Secretion MRSA (PCR) - Final 07/16/25 09:20 Mucosa - Nasopharyngeal Respiratory Panel (PCR) - Final 07/16/25 08:25 Urine Catheter - Madrigal Legionella Antigen - Final 07/16/25 08:25 Urine Catheter - Madrigal Streptococcus pneumoniae Antigen (M - Final 07/16/25 03:36 Sputum, Induced/Lukens Gram Stain - Final 07/16/25 03:44 Mucosa - Nose SARS-CoV-2, Influenza & RSV (PCR) - Final ABG Data ABG results: ABG 07/16/25 09:42 Specimen Type ART Sample Site L Radial pH 7.49 H Bicarbonate Actual 29.1 H Total CO2 30 Base Excess 6 H O2 Saturation 98 O2 % 50.0 ABG pCO2 38.6 ABG pO2 96 Judith Test N/A Respiration Rate 20 O2 Delivery Device Adult Vent Vent Mode AC Tidal Volume 400.0 POC PEEP 5 Radiography Diagnostic Testing: Radiology Impression Echocardiogram 07/16/25 06:31 Interpretation Summary Mild concentric left ventricular hypertrophy. Inferior hypokinesis. Estimated LVEF 55%. Stage I diastolic dysfunction. Moderate posterior mitral valve annular calcification. Calcified chord. Mild mitral valve regurgitation. Mild tricuspid valve insufficiency. Mildly calcified aortic valve leaflets. Aortic valve sclerosis without stenosis. Mild (1+) pulmonic valve insufficiency. Ordering Physician: Jack Zuniga Performed By: Jake Miguel RCS Chest X-Ray 07/16/25 09:05 IMPRESSION: Tubes and lines in position. There interstitial infiltrates in the perihilar region bilaterally and in the left upper lung. Reading Location: [facility] Chest X-Ray 07/17/25 05:10 IMPRESSION: Tubes and lines in position. There are perihilar infiltrates in the right and left, improved. Reading Location: [facility] Physical Exam Const Constitutional Narrative: The patient is intubated, sedated and mechanically ventilated. She is chronically ill in appearance. General Appearance: frail HEENT normocephalic and head/scalp atraumatic Mouth: endotracheal tube in place and OG tube in place Eyes EOMs intact bilaterally, conjunctivae normal and no scleral icterus Neck supple General: trachea midline Chest Chest Narrative: Increased AP diameter. Resp Auscultation: diminished lung sounds; Negative for rales, rhonchi or wheezes Cardio regular rate and regular rhythm GI normal to inspection, nondistended, normoactive bowel sounds Extremity no clubbing, cyanosis or edema Skin no rashes or lesions noted Neuro Sensorium / Orientation: sedated on vent Charges/Coding Procedures Hospitalists Procedures: [id number] Critical Care 1st Hr 07/17/25 1000 <Electronically signed by Eleazar Brown DO> Cosigner Signature (if applicable): CC: ~ Signed [facility] Work Phone: Progress note Author Eleazar Valle [facility] Note Date/Time July 18, 2025 9:00am [facility] Medical Records Department [address] [place] [address] Progress Note - Aoc Director Intelligence Officer 07/18/25 0739 MR#: [id number] Acct: [id number] Name: ZABRINA HSU Rep #:[id number] : 1955 70 From: Eleazar Valle DO PCP: Alfonso zOuna NP-C Status:ADM IN Location: ICU ICU01-1 Assessment & Plan Assessment/Plan (1) Acute respiratory failure with hypoxia and hypercapnia: PLAN: Plan RECOMMENDATIONS: 1. Continue assist-control mode of mechanical ventilation. Wean FiO2 and PEEP as tolerated. 2. Continue Precedex and fentanyl for sedation. Start scheduled Seroquel today. 3. Continue empiric antimicrobials. 4. Continue scheduled bronchodilators and steroids. 5. Continue diuresis as tolerated by hemodynamics and renal function. 6. Continue tube feeding as tolerated. 7. Continue appropriate ICU prophylaxis. 8. Plan for repeat spontaneous awakening and breathing trial tomorrow morning. IMPRESSIONS: 1. Acute respiratory failure with hypoxemia and hypercapnia Most likely multifactorial in etiology. The patient has a known history of COPDand a longstanding tobacco abuse history, but presented to the emergency department profoundly hypertensive with what I suspect is a component of flash pulmonary edema. The patient was ultimately intubated in the emergency department. She will be continued on assist-control mode of mechanical ventilation, with a goal to wean FiO2 and PEEP to maintain saturations at or above 90%. Given that I cannot definitively rule out infection, we will plan to continue empiric antibiotics, pending culture results. She will be continued onscheduled bronchodilators and IV steroids as well. Diuretics will be continued,as tolerated by hemodynamics and renal function. The patient will be continued on Precedex and fentanyl for sedation. Will plan to start scheduled Seroquel today in hopes that this will also help her in completing a spontaneous breathing trial. 2. History of coronary artery disease status post PCI/history of hypertrophic cardiomyopathy/valvular heart disease Continue diuretics as tolerated by hemodynamics and renal function. 3. Chronic tobacco dependency/depression/glaucoma/hyperlipidemia Complicates care, management, recovery and prognosis. Continue supportive measures as noted above. PT/OT to work with the patient. Continue tube feedingas tolerated. TIME: 33 minutes of critical care time, independent of procedures, was spent addressing the patient's acute respiratory failure with hypoxemia and hypercapnia, review of all data and collaboration with the care team. Subjective Subjective The patient was seen and examined at the bedside this morning. Events from the last 24 hours have been reviewed. The patient currently has a low-grade fever but remains otherwise hemodynamically stable on assist-control mode mechanical ventilation with an FiO2 requirement of 30% and PEEP of 5. The patient failed her spontaneous awakening trial this morning after she developed significant agitation which led to worsening tachypnea and hypoxemia. She is currently documented to be overall net -1.2 L for the hospitalization. She has been tolerant of tube feeding. White blood cell count is normal. Hemoglobin and platelet count are stable. Creatinine is normal. Objective Data Objective Data The patient's most recent lab work, culture data and imaging studies have all been personally reviewed. Surface echocardiogram demonstrated mild concentric LVH with an ejection fraction of 55% and stage I diastolic dysfunction. Sputum,blood and urine cultures are pending. Vital Signs: Vital Signs Temp Pulse Resp BP Pulse Ox O2 Del Method O2 Flow Rate 99.8 F H 65 20 H 158/64 H 96 Mechanical Ventilator 94 07/18/25 07:00 07/18/25 07:00 07/18/25 07:00 07/18/25 07:00 07/18/25 07:00 07/18/25 07:00 07/17/25 01:00 FiO2 30 07/18/25 07:00 Oxygen Flow Rate (L/min) 94 Oxygen Delivery Method Mechanical Ventilator Weight: 110 lb 10.753 oz Body Mass Index (BMI) 18.8 Intake & Output: Intake and Output for Last 24 Hours 07/16/25 07/17/25 07/18/25 23:59 23:59 23:59 Intake Total 1199.24 / 1242.49 1917.62 / 1995.00 596.75 / 596.75 Output Total 3125 / 3125 1535 / 1710 375 / 375 Balance -1925.76 / -1882.51 382.62 / 285.00 221.75 / 221.75 Lab / Micro Data Attestation: I reviewed the patient's lab results. 07/18/25 06:30 07/18/25 06:30 Labs: Laboratory Results - last 24 hr 07/17/25 06:30: WBC 8.4, RBC 3.34 L, Hgb 9.8 L, Hct 29.1 L, MCV 87.1 D, MCH 29.3, MCHC 33.7 D, RDW Std Deviation 47.9 H, RDW Coeff of Shivam 15.1 H, Plt Cncim280, MPV 9.7, Immature Gran % (Auto) 0.400, Neut % (Auto) 84.1 H, Lymph % (Auto)9.1 L, [place] % (Auto) 6.3, Eos % (Auto) 0.0, Baso % (Auto) 0.1, Absolute Neuts (auto) 7.0, Absolute Lymphs (auto) 0.76 L, Nucleated RBC % 0, Sodium 140, Potassium 3.0 L, Chloride 102, Carbon Dioxide 22.9, Anion Gap 15, BUN 29 H, Creatinine 1.30 H, Estim Creat Clear Calc 29.63 L, Est GFR (MDRD) Non-Af 44 L, BUN/Creatinine Ratio 22.6 H, Glucose 149 H, Calcium 8.1, NT pro BNP II 6511 H 07/17/25 11:03: POC Glucose 165 H 07/17/25 18:05: POC Glucose 157 H 07/17/25 23:28: POC Glucose 185 H 07/18/25 05:56: POC Glucose 174 H 07/18/25 06:30: WBC 9.9, RBC 3.76 L, Hgb 11.2 L, Hct 32.7 L, MCV 87.0, MCH 29.8,MCHC 34.3, RDW Std Deviation 48.1 H, RDW Coeff of Shivam 15.3 H, Plt Count 365, MPV9.4, Immature Gran % (Auto) 0.800, Neut % (Auto) 88.5 H, Lymph % (Auto) 5.9 L, [place] % (Auto) 4.7, Eos % (Auto) 0.0, Baso % (Auto) 0.1, Absolute Neuts (auto) 8.8 H, Absolute Lymphs (auto) 0.59 L, Nucleated RBC % 0 Micro: Microbiology 07/16/25 10:30 Nasal Secretion MRSA (PCR) - Final 07/16/25 09:20 Mucosa - Nasopharyngeal Respiratory Panel (PCR) - Final 07/16/25 08:25 Urine Catheter - Madrigal Legionella Antigen - Final 07/16/25 08:25 Urine Catheter - Madrigal Streptococcus pneumoniae Antigen (M - Final 07/16/25 03:36 Sputum, Induced/Lukens Gram Stain - Final 07/16/25 03:44 Mucosa - Nose SARS-CoV-2, Influenza & RSV (PCR) - Final ABG Data ABG results: ABG 07/16/25 09:42 Specimen Type ART Sample Site L Radial pH 7.49 H Bicarbonate Actual 29.1 H Total CO2 30 Base Excess 6 H O2 Saturation 98 O2 % 50.0 ABG pCO2 38.6 ABG pO2 96 Judith Test N/A Respiration Rate 20 O2 Delivery Device Adult Vent Vent Mode AC Tidal Volume 400.0 POC PEEP 5 Radiography Diagnostic Testing: Radiology Impression Echocardiogram 07/16/25 06:31 Interpretation Summary Mild concentric left ventricular hypertrophy. Inferior hypokinesis. Estimated LVEF 55%. Stage I diastolic dysfunction. Moderate posterior mitral valve annular calcification. Calcified chord. Mild mitral valve regurgitation. Mild tricuspid valve insufficiency. Mildly calcified aortic valve leaflets. Aortic valve sclerosis without stenosis. Mild (1+) pulmonic valve insufficiency. Ordering Physician: Jack Zuniga Performed By: Jake Miguel RCS Chest X-Ray 07/16/25 09:05 IMPRESSION: Tubes and lines in position. There interstitial infiltrates in the perihilar region bilaterally and in the left upper lung. Reading Location: [facility] Chest X-Ray 07/17/25 05:10 IMPRESSION: Tubes and lines in position. There are perihilar infiltrates in the right and left, improved. Reading [facility] Physical Exam Const Constitutional Narrative: The patient is intubated, sedated and mechanically ventilated. She is chronically ill in appearance. General Appearance: frail HEENT normocephalic and head/scalp atraumatic Mouth: endotracheal tube in place and OG tube in place Eyes EOMs intact bilaterally, conjunctivae normal and no scleral icterus Neck supple General: trachea midline Chest Chest Narrative: Increased AP diameter. Resp Auscultation: diminished lung sounds; Negative for rales, rhonchi or wheezes Cardio regular rate and regular rhythm GI normal to inspection, nondistended, normoactive bowel sounds Extremity no clubbing, cyanosis or edema Skin no rashes or lesions noted Neuro Sensorium / Orientation: sedated on vent Charges/Coding Procedures Hospitalists Procedures: 12610 Critical Care 1st Hr 07/18/25 0900 <Electronically signed by Eleazar Valle DO> Cosigner Signature (if applicable): CC: ~ Signed [facility] Work Phone: Progress note Author Gerard Santos [facility] Note Date/Time July 18, 2025 12:30pm [facility] Medical Records Department [address] [place] [id number] Progress Note - Hospitalist 07/18/25806 MR#: [id number] Acct: [id number] Name: ZABRINA HSU Rep #:[id number] : 1955 70 From: Gerard Santos DO PCP: SEUN Alvarez Status:ADM IN Location: ICU ICU01-1 Reason for Visit Chief Complaint: SOB. Subjective Subjective Did not tolerate SBT. Objective Data Objective Data Vital Signs: Vital Signs Temp Pulse Resp BP Pulse Ox O2 Del Method O2 Flow Rate 37.7 C H 65 20 H 158/64 H 96 Mechanical Ventilator 94 07/18/25 07:00 07/18/25 07:00 07/18/25 07:00 07/18/25 07:00 07/18/25 07:00 07/18/25 07:00 07/17/25 01:00 FiO2 30 07/18/25 07:00 Oxygen Flow Rate (L/min) 94 Oxygen Delivery Method Mechanical Ventilator Weight: 50.2 kg Body Mass Index (BMI) 18.8 Intake & Output: Intake and Output for Last 24 Hours 07/16/25 07/17/25 07/18/25 23:59 23:59 23:59 Intake Total 1199.24 / 1242.49 1917.62 / 1995.00 596.75 / 596.75 Output Total 3125 / 3125 1535 / 1710 375 / 375 Balance -1925.76 / -1882.51 382.62 / 285.00 221.75 / 221.75 Lab / Micro Data 07/18/25 06:30 07/18/25 06:30 Labs: Laboratory Results - last 24 hr 07/17/25 06:30: WBC 8.4, RBC 3.34 L, Hgb 9.8 L, Hct 29.1 L, MCV 87.1 D, MCH 29.3, MCHC 33.7 D, RDW Std Deviation 47.9 H, RDW Coeff of Shivam 15.1 H, Plt [id number], MPV 9.7, Immature Gran % (Auto) 0.400, Neut % (Auto) 84.1 H, Lymph % (Auto)9.1 L, [place] % (Auto) 6.3, Eos % (Auto) 0.0, Baso % (Auto) 0.1, Absolute Neuts (auto) 7.0, Absolute Lymphs (auto) 0.76 L, Nucleated RBC % 0, Sodium 140, Potassium 3.0 L, Chloride 102, Carbon Dioxide 22.9, Anion Gap 15, BUN 29 H, Creatinine 1.30 H, Estim Creat Clear Calc 29.63 L, Est GFR (MDRD) Non-Af 44 L, BUN/Creatinine Ratio 22.6 H, Glucose 149 H, Calcium 8.1, NT pro BNP II 6511 H 07/17/25 11:03: POC Glucose 165 H 07/17/25 18:05: POC Glucose 157 H 07/17/25 23:28: POC Glucose 185 H 07/18/25 05:56: POC Glucose 174 H 07/18/25 06:30: WBC 9.9, RBC 3.76 L, Hgb 11.2 L, Hct 32.7 L, MCV 87.0, MCH 29.8,MCHC 34.3, RDW Std Deviation 48.1 H, RDW Coeff of Shivam 15.3 H, Plt Count 365, MPV9.4, Immature Gran % (Auto) 0.800, Neut % (Auto) 88.5 H, Lymph % (Auto) 5.9 L, [place] % (Auto) 4.7, Eos % (Auto) 0.0, Baso % (Auto) 0.1, Absolute Neuts (auto) 8.8 H, Absolute Lymphs (auto) 0.59 L, Nucleated RBC % 0, Sodium 139, Potassium 3.6, Chloride 103, Carbon Dioxide 23.0, Anion Gap 13, BUN 34 H, Creatinine 1.04,Estim Creat Clear Calc 39.32 L, Est GFR (MDRD) Non-Af 57 L, BUN/Creatinine Ratio32.4 H, Glucose 181 H, Calcium 8.4, Phosphorus 3.6, Magnesium 2.4 H Micro: Microbiology 07/16/25 10:30 Nasal Secretion MRSA (PCR) - Final 07/16/25 09:20 Mucosa - Nasopharyngeal Respiratory Panel (PCR) - Final 07/16/25 08:25 Urine Catheter - Madrigal Legionella Antigen - Final 07/16/25 08:25 Urine Catheter - Madrigal Streptococcus pneumoniae Antigen (M - Final 07/16/25 03:36 Sputum, Induced/Lukens Gram Stain - Final 07/16/25 03:44 Mucosa - Nose SARS-CoV-2, Influenza & RSV (PCR) - Final Physical Exam Const Constitutional Narrative: intubated. sedated. afebrile. HEENT head/scalp atraumatic and moist oral mucous membranes Resp normal respiratory effort and no retractions Resp Narrative: coarse breath sounds bilaterally. Cardio regular rate, regular rhythm, S1 normal heart sound and S2 normal heart sound GI normal to inspection, nondistended, normoactive bowel sounds, soft to palpation,non-tender, non-distended and hepatosplenomegaly Assessment & Plan Assessment/Plan (1) COPD exacerbation: (2) Pneumonia: QUALIFIERS: Laterality: bilateral Lung location: unspecified partof lung Pneumonia type: due to unspecified organism Qualified Code(s): J18.9 -Pneumonia, unspecified organism (3) Acute hypoxic on chronic hypercapnic respiratory failure: (4) CHF exacerbation: QUALIFIERS: Heart failure type: unspecified Qualified Code(s): I50.9 - Heart failure, unspecified (5) Elevated troponin: (6) Hypertensive emergency: (7) Transaminitis: PLAN: Plan Acute Hypoxic and Hypercapnic Respiratory Failure * ABG pH 7.06/ PCO2 75.1 mmHg/ PO2 73 mmHg/ HCO3 21.2 mmHg @ 86% on * ventilator * CCM for vent mgmt * 2/2 to AECOPD, AECHF, possible pneumonia * on empiric abx. * respiratory panel, legionella strep antigens negative AECOPD: * Started on IV methylprednisolone and give scheduled plus prn nebulizers. Acute HFpEF * concern for flash pulmonary edema. * EF 55% on echo from 07/16/2025 * on IV furosemide. Elevated troponin * trending down. No wall motion abnormality on echo. Hypertensive emergency * improved * elevated blood pressure of 257/127 mmHg with concerns for flash pulmonary edema. * On IV furosemide and PRN hydralazine. Hyperglycemia * improved * a1c 6.1 * of 368 mg/dL present on admission suspicious for DM-2 adding to the burden of disease Check HgbA1c to confirm suspicion of DM-2. Check FSBS q. 4 hours and cover with SSI. Chronic conditions: * CAD; s/p stents x 3 RCA + LAD x 1 (2017) on BASA plus prn SL NTG - Continue BASA daily and serialize troponin. 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 * Hyperlipidemia; on atorvastatin - Maintain statin and check Lipid Profile. * OAB; on oxybutynin - Continue present therapy. * Depression; on venlafaxine - Restart this agent after extubation. * Glaucoma; on brimonidine daily and dorzolamide eyes drops TID - Maintain current therapy. DVT/GI prophylaxis - Lovenox 40 mg sq daily plus SCD's. Pantoprazole 40 mg IV daily. Charges/Coding Visit Charges Inpatient E&M: 11074 Subs Hosp L2 07/18/25 1230 <Electronically signed by Gerard Santos DO> Cosigner Signature (if applicable): CC: ~ Signed [facility] Work Phone: Progress note Author Gerard Santos [facility] Note Date/Time July 19, 2025 12:35pm [facility] Medical Records Department [address] [place] [address] Progress Note - Hospitalist 07/19/25 0758 MR#: [id number] Acct: [id number] Name: ZABRINA HSU Rep #:[id number] : 1955 70 From: Gerard Santos DO PCP: Alfonso Ozuna [employer] Status:ADM IN Location: ICU ICU01-1 Reason for Visit Chief Complaint: SOB. Subjective Subjective Still on the ventilator with low-grade temps. Objective Data Objective Data Vital Signs: Vital Signs Temp Pulse Resp BP Pulse Ox O2 Del Method O2 Flow Rate 37.4 C H 66 20 H 169/58 H 95 Mechanical Ventilator 94 07/19/25 07:00 07/19/25 07:00 07/19/25 07:00 07/19/25 07:00 07/19/25 07:40 07/19/25 07:40 07/17/25 01:00 FiO2 30 07/19/25 07:40 Oxygen Flow Rate (L/min) 94 Oxygen Delivery Method Mechanical Ventilator Weight: 50.5 kg Body Mass Index (BMI) 19.0 Intake & Output: Intake and Output for Last 24 Hours 07/17/25 07/18/25 07/19/25 23:59 23:59 23:59 Intake Total 1917.62 / 1995.00 2249.70 / 2868.53 1140.84 / 1140.84 Output Total 1535 / 1710 2049 / 2049 150 / 150 Balance 382.62 / 285.00 199.70 / 818.53 990.84 / 990.84 Lab / Micro Data 07/19/25 02:55 07/19/25 02:55 Labs: Laboratory Results - last 24 hr 07/18/25 10:27: Vancomycin Trough 7.7, Hepatitis A IgM Ab Negative, Hep Bs Antigen Negative, Hep B Core IgM Ab Negative, Hepatitis C Ab (EIA) Non Reactive,Hep C Ab Comment Comment 07/18/25 11:53: POC Glucose 192 H 07/18/25 17:39: POC Glucose 187 H 07/18/25 23:31: POC Glucose 190 H 07/19/25 02:55: WBC 8.5, RBC 3.54 L, Hgb 10.2 L, Hct 31.3 L, MCV 88.4, MCH 28.8,MCHC 32.6, RDW Std Deviation 49.1 H, RDW Coeff of Shivam 15.3 H, Plt Count 348, MPV9.5, Immature Gran % (Auto) 0.700, Neut % (Auto) 90.1 H, Lymph % (Auto) 4.7 L, [place] % (Auto) 4.3, Eos % (Auto) 0.1, Baso % (Auto) 0.1, Absolute Neuts (auto) 7.7, Absolute Lymphs (auto) 0.40 L, Nucleated RBC % 0, Sodium 140, Potassium 3.0L, Chloride 106, Carbon Dioxide 20.7 L, Anion Gap 13, BUN 37 H, Creatinine 0.89,Estim Creat Clear Calc 46.22 L, Est GFR (MDRD) Non-Af 69, BUN/Creatinine Ratio 41.1 H, Glucose 199 H, Calcium 7.4 L 07/19/25 05:14: POC Glucose 192 H Micro: Microbiology 07/16/25 03:44 Urine, Catheterized Urine Culture - Final Culture exhibits no growth. 07/16/25 03:36 Sputum, Induced/Lukens Gram Stain - Final 07/16/25 03:36 Sputum, Induced/Lukens Respiratory Culture - Final Mixed normal respiratory renu. No Streptococcus pneumoniae, beta-hemolytic Streptococcus or Staphylococcus aureus isolated. 07/16/25 10:30 Nasal Secretion MRSA (PCR) - Final 07/16/25 09:20 Mucosa - Nasopharyngeal Respiratory Panel (PCR) - Final 07/16/25 08:25 Urine Catheter - Madrigal Legionella Antigen - Final 07/16/25 08:25 Urine Catheter - Madrigal Streptococcus pneumoniae Antigen (M - Final 07/16/25 03:44 Mucosa - Nose SARS-CoV-2, Influenza & RSV (PCR) - Final ABG Data ABG results: ABG 07/19/25 05:10 Specimen Type ART Sample Site R Brach pH 7.48 H Bicarbonate Actual 27.0 H Total CO2 28 Base Excess 3 H O2 Saturation 89 L O2 % 30.0 ABG pCO2 36.7 ABG pO2 53 L Respiration Rate 20 O2 Delivery Device Adult Vent Vent Mode AC Tidal Volume 400.0 POC PEEP 5 Radiography Diagnostic Testing: Radiology Impression Chest X-Ray 07/19/25 05:56 IMPRESSION: Tubes are as detailed. Improvement in perihilar densities. Reading Location: [facility] Physical Exam Const Constitutional Narrative: intubated. sedated. HEENT head/scalp atraumatic and moist oral mucous membranes HEENT Narrative: ETT OGT in place. Resp normal respiratory effort, no retractions, no use of accessory muscles and clearto auscultation bilaterally Cardio regular rate and regular rhythm GI normal to inspection, nondistended, normoactive bowel sounds, soft to palpation,non-tender and non-distended Neuro Sensorium / Orientation: awake and alert Assessment & Plan Assessment/Plan (1) COPD exacerbation: (2) Pneumonia: QUALIFIERS: Laterality: bilateral Lung location: unspecified partof lung Pneumonia type: due to unspecified organism Qualified Code(s): J18.9 -Pneumonia, unspecified organism (3) Acute hypoxic on chronic hypercapnic respiratory failure: (4) CHF exacerbation: QUALIFIERS: Heart failure type: unspecified Qualified Code(s): I50.9 - Heart failure, unspecified (5) Elevated troponin: (6) Hypertensive emergency: (7) Transaminitis: PLAN: Plan Acute Hypoxic and Hypercapnic Respiratory Failure * ABG pH 7.06/ PCO2 75.1 mmHg/ PO2 73 mmHg/ HCO3 21.2 mmHg @ 86% on * ventilator * CCM for vent mgmt * 2/2 to AECOPD, AECHF, possible pneumonia * on empiric abx. * respiratory panel, legionella strep antigens negative AECOPD: * Started on IV methylprednisolone and give scheduled plus prn nebulizers. Acute HFpEF * concern for flash pulmonary edema. * EF 55% on echo from 07/16/2025 * on IV furosemide. Elevated troponin * trending down. No wall motion abnormality on echo. Hypertensive emergency * improved * elevated blood pressure of 257/127 mmHg with concerns for flash pulmonary edema. * On IV furosemide and PRN hydralazine. Hyperglycemia * improved * a1c 6.1 * of 368 mg/dL present on admission suspicious for DM-2 adding to the burden of disease * add glargine given persistent hyperglycemia. Chronic conditions: * CAD; s/p stents x 3 RCA + LAD x 1 (2016) on BASA plus prn SL NTG - Continue BASA daily and serialize troponin. 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 * Hyperlipidemia; on atorvastatin - Maintain statin and check Lipid Profile. * OAB; on oxybutynin - Continue present therapy. * Depression; on venlafaxine - Restart this agent after extubation. * Glaucoma; on brimonidine daily and dorzolamide eyes drops TID - Maintain current therapy. DVT/GI prophylaxis - Lovenox 40 mg sq daily plus SCD's. Pantoprazole 40 mg IV daily. Charges/Coding Visit Charges Inpatient E&M: 41007 Subs Hosp L2 07/19/25 1235 <Electronically signed by Gerard Santos DO> Cosigner Signature (if applicable): CC: ~ Signed [facility] Work Phone: Progress note Author Reid Murillo [facility] Note Date/Time July 19, 2025 11:55am [facility] Medical Records Department [address] [place] [address] Progress Note - Aoc Director Intelligence Officer 07/19/25 1144 MR#: [id number] Acct: [id number] Name: ZABRINA HSU Rep #:[id number] : 1955 70 From: Reid Murillo MD PCP: SEUN Alvarez Status:ADM IN Location: ICU ICU01-1 Objective Data Objective Data Vital Signs: Vital Signs Last response 3 Temperature 37.7 C H 07/19/25 11:00 Temperature Source Core 07/19/25 11:00 Pulse Rate 61 07/19/25 11:00 Pulse Strength Weak (1+) 07/18/25 19:38 Respiratory Rate 20 H 07/19/25 11:00 Respiratory Effort Mechanically Ventilated 07/19/25 07:40 Respiratory Depth Normal 07/19/25 07:40 Respiratory Pattern Normal 07/19/25 10:31 Blood Pressure 166/66 H 07/19/25 11:00 Blood Pressure Mean 99 07/19/25 11:00 Blood Pressure Source Monitor 07/19/25 11:00 Blood Pressure Position Semi-Fowlers 07/19/25 11:00 Blood Pressure Location Right Forearm 07/19/25 11:00 Pulse Ox 96 07/19/25 11:00 Oxygen Delivery Method Mechanical Ventilator 07/19/25 11:00 Oxygen Flow Rate (L/min) 94 07/17/25 01:00 Fraction of Inspired Oxygen (FIO2) 30 07/19/25 11:00 I&O: I&O Last 24 Hours 3 07/18/25 07/18/25 07/19/25 11:59 23:59 11:59 Intake Total 1212.90 / 2868.53 1036.80 / 2868.53 1810.87 / 1810.87 Output Total 375 / 2050 1675 / 2050 150 / 150 Balance 837.90 / 818.53 -638.20 / 818.53 1660.87 / 1660.87 I&O: Total Stay 3 07/16/25 03:07 thru 07/19/25 11:29 Intake Total 7177.43 Output Total 6860 Balance 317.43 Current Meds Ordered / Administered: Current meds ordered / Administered 3 Generic Name Dose Route Start Last Admin Trade Name Druq PRN Reason Stop Dose Admin Albuterol/Ipratropium 3 ml 07/16/25 10:15 07/19/25 06:37 Ipratropium/Albuterol Sulfate 3 Ml Ampul.Neb INHALATION 3 ml Q6H.RT TIMOTHY Administration Amlodipine Besylate 5 mg 07/17/25 14:45 07/19/25 09:09 Amlodipine 5 Mg Tablet PO 5 mg DAILY TIMOTHY Administration Protocol Aspirin 81 mg 07/18/25 10:00 07/19/25 09:09 Aspirin 81 Mg Tab.Chew GT 81 mg BREAKFAST TIMOTHY Administration Atorvastatin Calcium 40 mg 07/16/25 22:00 07/18/25 20:25 Atorvastatin Calcium 40 Mg Tablet PO 40 mg QHS TIMOTHY Administration Brimonidine Tartrate 1 drp 07/16/25 10:00 07/19/25 09:09 Brimonidine 0.2% 5ml Bottle OPHTHALMIC 1 drp DAILY TIMOTHY Administration Chlorhexidine Gluconate 1 each 07/17/25 10:00 07/19/25 02:44 Chlorhexidine Gluc 2% Cloth 1 Each Towelette TOPICAL 1 each DAILY TIMOTHY Administration Chlorhexidine Gluconate 15 ml 07/17/25 10:00 07/19/25 09:09 Chlorhexidine 15 Ml PO 15 ml BID TIMOTHY Administration Clopidogrel Bisulfate 75 mg 07/18/25 10:00 07/19/25 09:10 Clopidogrel Bisulfate 75 Mg Tablet PO 75 mg DAILY TIMOTHY Administration Dorzolamide HCl 1 drp 07/16/25 14:00 07/19/25 05:15 Dorzolamide 2% 10ml Bottle OPHTHALMIC 1 drp TID TIMOTHY Administration Enoxaparin Sodium 40 mg 07/18/25 10:00 07/19/25 09:09 Enoxaparin 40 Mg/0.4 Ml Syringe SC 40 mg DAILY TIMOTHY Administration Furosemide 40 mg 07/16/25 07:56 07/19/25 09:09 Furosemide 40 Mg/4 Ml Vial IV 40 mg DAILY TIMOTHY Administration Protocol Glucagon 1 mg 07/16/25 07:56 Glucagon 1 Mg/Ml Syringe IM X1 PRN Hypoglycemia Protocol Hydralazine HCl 5 mg 07/16/25 07:56 07/17/25 16:27 Hydralazine 20 Mg/Ml Vial IV 5 mg Q8H PRN PRN Administration SBP GREATER THAN 180 Protocol Dextrose 250 mls @ 0 mls/hr 07/16/25 07:56 Dextrose 10%-Water IV .Q0M PRN HYPOGLYCEMIA Protocol As Directed Sodium Chloride 250 mls @ 15 mls/hr 07/16/25 07:59 07/19/25 07:27 IV 0 mls/hr .[id number] PRN Infusion Saline Flush Sodium Chloride 250 mls @ 15 mls/hr 07/16/25 07:59 IV .[id number] PRN Additional IVPB Infusion Fentanyl 100 mls @ 5 mls/hr 07/16/25 08:15 07/19/25 11:10 CONT INF 125 mcg/hr UD TIMOTHY 12.5 mls/hr Protocol Titration 50 MCG/HR Pantoprazole Sodium 40 mg/ 100 mls @ 330 mls/hr 07/16/25 08:30 07/19/25 09:39 Sodium Chloride IV Infused Q24 TIMOTHY Infusion Vancomycin IV-PHARMACY TO DOSE 500 mls @ 250 mls/hr 07/16/25 08:29 1 each/ Sodium Chloride IV X1 PRN Rx to Dose Protocol Piperacillin Sod/Tazobactam 50 mls @ 12.5 mls/hr 07/16/25 14:00 07/19/25 09:25 Sod 3.375 gm/ Sodium Chloride IV Infused Q8 TIMOTHY Infusion Dexmedetomidine HCl 400 mcg/ 100 mls @ 6.313 mls/hr 07/17/25 08:15 07/19/25 11:29 Sodium Chloride CONT INF 0.9 mcg/kg/hr .[id number] TIMOTHY 11.4 mls/hr Protocol Titration 0.5 MCG/KG/HR Enteral Nutritional Formula 1,000 mls @ 45 mls/hr 07/17/25 10:05 07/19/25 09:30 Vital Af 1.2 Blake Liquid GT 45 mls/hr .[id number] TIMOTHY Administration Propofol 1,000 mg in 100 mls @ 3.03 mls/hr 07/18/25 01:15 07/19/25 11:27 Diprivan CONT INF 0 mcg/kg/min .Q12H TIMOTHY 0 mls/hr Protocol Titration 10 MCG/KG/MIN Vancomycin HCl 1,250 mg/ 275 mls @ 167 mls/hr 07/18/25 12:00 07/19/25 11:27 Sodium Chloride IV 167 mls/hr Q24H TIMOTHY Administration Insulin Glargine 10 unit 07/19/25 10:00 07/19/25 09:12 Insulin Glargine-Yfgn 100 Unit/Ml Pen SC 10 unit DAILY TIMOTHY Administration Insulin Human Lispro 0 unit 07/17/25 12:00 07/19/25 11:26 Insulin Lispro 100 Unit/Ml Insuln.Pen SC Not Given Q6H TIMOTHY Protocol Methylprednisolone Sodium Succinate 60 mg 07/16/25 10:00 07/19/25 09:11 Methylprednisolone Sod Succ 40 Mg/Ml Vial IV 60 mg BID TIMOTHY Administration Quetiapine Fumarate 25 mg 07/18/25 10:00 07/19/25 09:10 Quetiapine 25 Mg Tablet GT 25 mg BID TIMOTHY Administration Protocol Sodium Chloride 10 - 40 ml 07/16/25 07:59 07/19/25 02:51 0.9% Saline Lock 10 Ml Syringe IV 10 ml UD PRN Administration SALINE FLUSH Sodium Chloride 10 - 40 ml 07/18/25 06:42 0.9% Saline Lock 10 Ml Syringe IV UD PRN SALINE FLUSH Tolterodine Tartrate 2 mg 07/16/25 10:00 07/19/25 09:09 Tolterodine Tartrate 2 Mg Cap.Sa PO 2 mg DAILY TIMOTHY Administration Vancomycin Protocol 1 lab 07/20/25 10:30 Vancomycin Trough/Random Due MC 07/20/25 12:30 DAILY [facility] Lab / Micro Data Attestation: I reviewed the patient's lab results. 07/19/25 02:55 07/19/25 02:55 Labs: Laboratory Results - last 24 hr 07/18/25 10:27: Hepatitis A IgM Ab Negative, Hep Bs Antigen Negative, Hep B CoreIgM Ab Negative, Hepatitis C Ab (EIA) Non Reactive, Hep C Ab Comment Comment 07/18/25 11:53: POC Glucose 192 H 07/18/25 17:39: POC Glucose 187 H 07/18/25 23:31: POC Glucose 190 H 07/19/25 02:55: WBC 8.5, RBC 3.54 L, Hgb 10.2 L, Hct 31.3 L, MCV 88.4, MCH 28.8,MCHC 32.6, RDW Std Deviation 49.1 H, RDW Coeff of Shivam 15.3 H, Plt Count 348, MPV9.5, Immature Gran % (Auto) 0.700, Neut % (Auto) 90.1 H, Lymph % (Auto) 4.7 L, [place] % (Auto) 4.3, Eos % (Auto) 0.1, Baso % (Auto) 0.1, Absolute Neuts (auto) 7.7, Absolute Lymphs (auto) 0.40 L, Nucleated RBC % 0, Sodium 140, Potassium 3.0L, Chloride 106, Carbon Dioxide 20.7 L, Anion Gap 13, BUN 37 H, Creatinine 0.89,Estim Creat Clear Calc 46.22 L, Est GFR (MDRD) Non-Af 69, BUN/Creatinine Ratio 41.1 H, Glucose 199 H, Calcium 7.4 L 07/19/25 05:14: POC Glucose 192 H 07/19/25 11:25: POC Glucose 125 H Micro: Microbiology 07/16/25 03:44 Urine, Catheterized Urine Culture - Final Culture exhibits no growth. 07/16/25 03:36 Sputum, Induced/Lukens Gram Stain - Final 07/16/25 03:36 Sputum, Induced/Lukens Respiratory Culture - Final Mixed normal respiratory renu. No Streptococcus pneumoniae, beta-hemolytic Streptococcus or Staphylococcus aureus isolated. ABG Data ABG results: ABG 07/19/25 05:10 Specimen Type ART Sample Site R Brach pH 7.48 H Bicarbonate Actual 27.0 H Total CO2 28 Base Excess 3 H O2 Saturation 89 L O2 % 30.0 ABG pCO2 36.7 ABG pO2 53 L Respiration Rate 20 O2 Delivery Device Adult Vent Vent Mode AC Tidal Volume 400.0 POC PEEP 5 Imaging Radiology Impression Chest X-Ray 07/19/25 05:56 IMPRESSION: Tubes are as detailed. Improvement in perihilar densities. Reading Location: [facility] Assessment and Plan . Assessment and plan: [facility] Medical Records Department [address] [place] [address] Progress Note - Aoc Director Intelligence Officer 07/18/25 0739 MR#: [id number] Acct: [id number] Name: ZABRINA HSU Rep #: [id number] : 1955 70 From: Eleazar Valle DO PCP: SEUN Alvarez Status: ADM IN Location: ICU ICU01-1 IMPRESSIONS: 1. Acute respiratory failure with hypoxemia and hypercapnia -multifactorial with components of AE COPD plus acute heart failure/ pulmonary edema - easily supported with mechanical ventilation since - failing SAT/ SBT yesterday with sedation adjusted - will retry SAT/ SBT daily - explained to this may be just a matter of requiring serial efforts to get past - repeat CXR if no progress over next 24 hours 2. History of coronary artery disease status post PCI/history of hypertrophic cardiomyopathy/valvular heart disease - diuresis for possible ASHF 3. Chronic tobacco dependency/depression/glaucoma/hyperlipidemia Complicates care, management, recovery and prognosis. Continue supportive measures as noted above. PT/OT to work with the patient. Continue tube feedingas tolerated. RECOMMENDATIONS: - blood gases reviewed, vent adjusted - contnue sedation - seroquel added - empiric antimicrobials. - bronchodilators and steroids. - diuresis - tube feeding as tolerated. - standard ICU prophylaxis. Reid Murillo MD Critical Care Time: 50 minutes The entirety of this encounter was done via Telemedicine Physical Exam Const General Appearance: patient mechanically ventilated Orientation / Consciousness: lethargic Exam Limitations: physical limitations HEENT Head and Scalp: normal to inspection and normocephalic Mouth: endotracheal tube in place and OG tube in place Eyes PERRL Neck full ROM Chest Chest: symmetrical chest wall rise Resp no use of accessory muscles Effort and Inspection: symmetric chest movement and prolonged expiratory phase Auscultation: diminished lung sounds Cardio regular rate Subjective Subjective Events reviewed. Failed SBT yesterday with evident anxiety and also desaturation. at bedside this AM. 07/19/25 1155 <Electronically signed by Reid Murillo MD> Cosigner Signature (if applicable): CC: ~ Signed [facility] Work Phone: Progress note Author Gerard Santos [facility] Note Date/Time July 20, 2025 11:57am [facility] Medical Records Department [address] [place] [address] Progress Note - Hospitalist 07/20/25835 MR#: [id number] Acct: [id number] Name: ZABRINA HSU Rep #:[id number] : 1955 70 From: Gerard Santos DO PCP: SEUN Alvarez Status:ADM IN Location: ICU ICU01-1 Reason for Visit Chief Complaint: SOB. Subjective Subjective Maxxed on dexmedetomidine and fentanyl. Objective Data Objective Data Vital Signs: Vital Signs Temp Pulse Resp BP Pulse Ox O2 Del Method O2 Flow Rate 37.4 C H 65 20 H 163/65 H 93 Mechanical Ventilator 94 07/20/25 07:00 07/20/25 07:00 07/20/25 07:00 07/20/25 07:00 07/20/25 07:00 07/20/25 07:00 07/17/25 01:00 FiO2 30 07/20/25 07:00 Oxygen Flow Rate (L/min) 94 Oxygen Delivery Method Mechanical Ventilator Weight: 51 kg Body Mass Index (BMI) 19.2 Intake & Output: Intake and Output for Last 24 Hours 07/18/25 07/19/25 07/20/25 23:59 23:59 23:59 Intake Total 2249.70 / 2868.53 2999.69 / 3036.09 477.02 / 477.02 Output Total 2049 / 2099 275 / 275 Balance 199.70 / 818.53 899.69 / 936.09 202.02 / 202.02 Lab / Micro Data 07/20/25 03:24 07/20/25 03:24 Labs: Laboratory Results - last 24 hr 07/19/25 11:25: POC Glucose 125 H 07/19/25 17:06: POC Glucose 166 H 07/19/25 22:54: POC Glucose 163 H 07/20/25 03:24: WBC 11.4 H, RBC 3.70 L, Hgb 10.5 L, Hct 33.0 L, MCV 89.2, MCH 28.4, MCHC 31.8 L, RDW Std Deviation 49.8 H, RDW Coeff of Shivam 15.4 H, Plt Count 385, MPV 9.6, Immature Gran % (Auto) 0.900, Neut % (Auto) 89.3 H, Lymph % (Auto)5.2 L, [place] % (Auto) 4.5, Eos % (Auto) 0.0, Baso % (Auto) 0.1, Absolute Neuts (auto) 10.2 H, Absolute Lymphs (auto) 0.59 L, Nucleated RBC % 0, Sodium 139, Potassium 4.4, Chloride 105, Carbon Dioxide 22.2, Anion Gap 12, BUN 42 H, Creatinine 0.89, Estim Creat Clear Calc 46.22 L, Est GFR (MDRD) Non-Af 69, BUN/Creatinine Ratio 47.3 H, Glucose 194 H, Calcium 8.2 07/20/25 05:07: POC Glucose 176 H Micro: Microbiology 07/16/25 04:20 Blood Culture (Wb) - Left Hand Blood Culture - Preliminary No growth in 48 hours. 07/16/25 04:05 Blood Culture (Wb) - Right Hand Blood Culture - Preliminary No growth in 48 hours. 07/16/25 03:44 Urine, Catheterized Urine Culture - Final Culture exhibits no growth. 07/16/25 03:36 Sputum, Induced/Lukens Gram Stain - Final 07/16/25 03:36 Sputum, Induced/Lukens Respiratory Culture - Final Mixed normal respiratory renu. No Streptococcus pneumoniae, beta-hemolytic Streptococcus or Staphylococcus aureus isolated. 07/16/25 10:30 Nasal Secretion MRSA (PCR) - Final 07/16/25 09:20 Mucosa - Nasopharyngeal Respiratory Panel (PCR) - Final 07/16/25 08:25 Urine Catheter - Madrigal Legionella Antigen - Final 07/16/25 08:25 Urine Catheter - Madrigal Streptococcus pneumoniae Antigen (M - Final 07/16/25 03:44 Mucosa - Nose SARS-CoV-2, Influenza & RSV (PCR) - Final Physical Exam Const no apparent distress Constitutional Narrative: follows commands. intubated. HEENT head/scalp atraumatic and moist oral mucous membranes Resp normal respiratory effort, no retractions, no use of accessory muscles and clearto auscultation bilaterally Cardio regular rate, regular rhythm, S1 normal heart sound and S2 normal heart sound GI normal to inspection, nondistended, normoactive bowel sounds, soft to palpation and non-tender Extremity normal to inspection and full ROM Neuro moves all extremities Sensorium / Orientation: awake Assessment & Plan Assessment/Plan (1) COPD exacerbation: (2) Pneumonia: QUALIFIERS: Laterality: bilateral Lung location: unspecified partof lung Pneumonia type: due to unspecified organism Qualified Code(s): J18.9 -Pneumonia, unspecified organism (3) Acute hypoxic on chronic hypercapnic respiratory failure: (4) CHF exacerbation: QUALIFIERS: Heart failure type: unspecified Qualified Code(s): I50.9 - Heart failure, unspecified (5) Elevated troponin: (6) Hypertensive emergency: (7) Transaminitis: PLAN: Plan Acute Hypoxic and Hypercapnic Respiratory Failure * ABG pH 7.06/ PCO2 75.1 mmHg/ PO2 73 mmHg/ HCO3 21.2 mmHg @ 86% on * ventilator * CCM for vent mgmt * 2/2 to AECOPD, AECHF, possible pneumonia * on empiric abx. * respiratory panel, legionella strep antigens negative AECOPD: * Continue IV methylprednisolone and give scheduled plus prn nebulizers. Acute HFpEF * concern for flash pulmonary edema. * EF 55% on echo from 07/16/2025 * on IV furosemide 40/d Elevated troponin * trending down. No wall motion abnormality on echo. * Demand ischemia from respiratory failure and hypertensive emergency. * No additional work up Hypertensive emergency * improved * elevated blood pressure of 257/127 mmHg with concerns for flash pulmonary edema. * On IV furosemide and PRN hydralazine. Hyperglycemia * improved * a1c 6.1 * of 368 mg/dL present on admission suspicious for DM-2 adding to the burden of disease * add glargine given persistent hyperglycemia with steroids and tube feeds. Chronic conditions: * CAD; s/p stents x 3 RCA + LAD x 1 (2017) on BASA plus prn SL NTG - Continue BASA daily and serialize troponin. 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 * Hyperlipidemia; on atorvastatin - Maintain statin and check Lipid Profile. * OAB; on oxybutynin - Continue present therapy. * Depression; on venlafaxine - Restart this agent after extubation. * Glaucoma; on brimonidine daily and dorzolamide eyes drops TID - Maintain current therapy. DVT/GI prophylaxis - Lovenox 40 mg sq daily plus SCD's. Pantoprazole 40 mg IV daily. Charges/Coding Visit Charges Inpatient E&M: 15701 Subs Hosp L2 07/20/25 1157 <Electronically signed by Gerard Santos DO> Cosigner Signature (if applicable): CC: ~ Signed [facility] Work Phone: Progress note Author Reid Murillo [facility] Note Date/Time July 20, 2025 9:07am [facility] Medical Records Department [address] [place] [address] Progress Note - Aoc Director Intelligence Officer 07/20/25899 MR#: [id number] Acct: [id number] Name: ZABRINA HSU Rep #:[id number] : 1955 70 From: Reid Murillo MD PCP: SEUN Alvarez Status:ADM IN Location: ICU ICU01-1 Objective Data Objective Data Vital Signs: Vital Signs Last response 3 Temperature 37.4 C H 07/20/25 08:00 Temperature Source Core 07/20/25 08:00 Pulse Rate 68 07/20/25 08:00 Pulse Strength Weak (1+) 07/19/25 19:08 Respiratory Rate 20 H 07/20/25 08:00 Respiratory Effort Normal, Non-Labored 07/20/25 08:00 Respiratory Depth Normal 07/20/25 08:00 Respiratory Pattern Normal 07/20/25 08:00 Blood Pressure 177/68 H 07/20/25 08:00 Blood Pressure Mean 104 07/20/25 08:00 Blood Pressure Source Monitor 07/20/25 08:00 Blood Pressure Position Semi-Fowlers 07/20/25 08:00 Blood Pressure Location Left Arm 07/20/25 08:00 Pulse Ox 96 07/20/25 08:00 Oxygen Delivery Method Mechanical Ventilator 07/20/25 08:00 Oxygen Flow Rate (L/min) 94 07/17/25 01:00 Fraction of Inspired Oxygen (FIO2) 30 07/20/25 08:00 I&O: I&O Last 24 Hours 3 07/19/25 07/19/25 07/20/25 11:59 23:59 11:59 Intake Total 1820.60 / 3036.09 1179.09 / 3036.09 477.02 / 477.02 Output Total 400 / 2100 1700 / 2100 275 / 275 Balance 1420.60 / 936.09 -520.91 / 936.09 202.02 / 202.02 I&O: Total Stay 3 07/16/25 03:07 thru 07/20/25 07:51 Intake Total 8843.27 Output Total 9085 Balance -241.73 Current Meds Ordered / Administered: Current meds ordered / Administered 3 Generic Name Dose Route Start Last Admin Trade Name Freq PRN Reason Stop Dose Admin Acetaminophen 650 mg 07/19/25 16:10 07/19/25 17:09 Acetaminophen 650 Mg/20 Ml Udc GT 650 mg Q6H PRN PRN Administration Pain 1-10 or Fever Albuterol/Ipratropium 3 ml 07/16/25 10:15 07/20/25 06:54 Ipratropium/Albuterol Sulfate 3 Ml Ampul.Neb INHALATION 3 ml Q6H.RT TIMOTHY Administration Amlodipine Besylate 5 mg 07/17/25 14:45 07/19/25 09:09 Amlodipine 5 Mg Tablet PO 5 mg DAILY TIMOTHY Administration Protocol Aspirin 81 mg 07/18/25 10:00 07/19/25 09:09 Aspirin 81 Mg Tab.Chew GT 81 mg BREAKFAST TIMOTHY Administration Atorvastatin Calcium 40 mg 07/16/25 22:00 07/19/25 20:33 Atorvastatin Calcium 40 Mg Tablet PO 40 mg QHS TIMOTHY Administration Brimonidine Tartrate 1 drp 07/16/25 10:00 07/19/25 09:09 Brimonidine 0.2% 5ml Bottle OPHTHALMIC 1 drp DAILY TIMOTHY Administration Chlorhexidine Gluconate 1 each 07/17/25 10:00 07/20/25 00:46 Chlorhexidine Gluc 2% Cloth 1 Each Towelette TOPICAL 1 each DAILY TIMOTHY Administration Chlorhexidine Gluconate 15 ml 07/17/25 10:00 07/19/25 20:38 Chlorhexidine 15 Ml PO 15 ml BID TIMOTHY Administration Clopidogrel Bisulfate 75 mg 07/18/25 10:00 07/19/25 09:10 Clopidogrel Bisulfate 75 Mg Tablet PO 75 mg DAILY TIMOTHY Administration Dorzolamide HCl 1 drp 07/16/25 14:00 07/20/25 05:11 Dorzolamide 2% 10ml Bottle OPHTHALMIC 1 drp TID TIMOTHY Administration Enoxaparin Sodium 40 mg 07/18/25 10:00 07/19/25 09:09 Enoxaparin 40 Mg/0.4 Ml Syringe SC 40 mg DAILY TIMOTHY Administration Furosemide 40 mg 07/16/25 07:56 07/19/25 09:09 Furosemide 40 Mg/4 Ml Vial IV 40 mg DAILY TIMOTHY Administration Protocol Glucagon 1 mg 07/16/25 07:56 Glucagon 1 Mg/Ml Syringe IM X1 PRN Hypoglycemia Protocol Hydralazine HCl 5 mg 07/16/25 07:56 07/19/25 18:02 Hydralazine 20 Mg/Ml Vial IV 5 mg Q8H PRN PRN Administration SBP GREATER THAN 180 Protocol Dextrose 250 mls @ 0 mls/hr 07/16/25 07:56 Dextrose 10%-Water IV .Q0M PRN HYPOGLYCEMIA Protocol As Directed Sodium Chloride 250 mls @ 15 mls/hr 07/16/25 07:59 07/20/25 06:02 IV 0 mls/hr .[id number] PRN Infusion Saline Flush Sodium Chloride 250 mls @ 15 mls/hr 07/16/25 07:59 IV .[id number] PRN Additional IVPB Infusion Fentanyl 100 mls @ 5 mls/hr 07/16/25 08:15 07/20/25 07:00 CONT INF 175 mcg/hr UD TIMOTHY 17.5 mls/hr Protocol Titration 50 MCG/HR Pantoprazole Sodium 40 mg/ 100 mls @ 330 mls/hr 07/16/25 08:30 07/19/25 09:39 Sodium Chloride IV Infused Q24 TIMOTHY Infusion Vancomycin IV-PHARMACY TO DOSE 500 mls @ 250 mls/hr 07/16/25 08:29 1 each/ Sodium Chloride IV X1 PRN Rx to Dose Protocol Piperacillin Sod/Tazobactam 50 mls @ 12.5 mls/hr 07/16/25 14:00 07/20/25 05:11 Sod 3.375 gm/ Sodium Chloride IV 12.5 mls/hr Q8 TIMOTHY Administration Enteral Nutritional Formula 1,000 mls @ 45 mls/hr 07/17/25 10:05 07/20/25 02:14 Vital Af 1.2 Blake Liquid GT Not Given .[id number] TIMOTHY Propofol 1,000 mg in 100 mls @ 3.06 mls/hr 07/18/25 01:15 07/20/25 00:41 Diprivan CONT INF Not Given .Q12H TIMOTHY Protocol 10 MCG/KG/MIN Vancomycin HCl 1,250 mg/ 275 mls @ 167 mls/hr 07/18/25 12:00 07/19/25 13:10 Sodium Chloride IV Infused Q24H TIMOTHY Infusion Dexmedetomidine HCl 1,000 mcg/ 250 mls @ 6.375 mls/hr 07/19/25 22:00 07/20/2507:00 Sodium Chloride CONT INF 1.5 mcg/kg/hr .[id number] TIMOTHY 19.1 mls/hr Protocol Titration 0.5 MCG/KG/HR Insulin Glargine 10 unit 07/19/25 10:00 07/19/25 09:12 Insulin Glargine-Yfgn 100 Unit/Ml Pen SC 10 unit DAILY TIMOTHY Administration Insulin Human Lispro 0 unit 07/17/25 12:00 07/20/25 05:11 Insulin Lispro 100 Unit/Ml Insuln.Pen SC 1 units Q6H TIMOTHY Administration Protocol Methylprednisolone Sodium Succinate 60 mg 07/16/25 10:00 07/19/25 20:38 Methylprednisolone Sod Succ 40 Mg/Ml Vial IV 60 mg BID TIMOTHY Administration Quetiapine Fumarate 50 mg 07/20/25 10:00 Quetiapine 25 Mg Tablet GT BID [facility] Protocol Sodium Chloride 10 - 40 ml 07/16/25 07:59 07/20/25 05:11 0.9% Saline Lock 10 Ml Syringe IV 20 ml UD PRN Administration SALINE FLUSH Sodium Chloride 10 - 40 ml 07/18/25 06:42 0.9% Saline Lock 10 Ml Syringe IV UD PRN SALINE FLUSH Tolterodine Tartrate 2 mg 07/16/25 10:00 07/19/25 09:09 Tolterodine Tartrate 2 Mg Cap.Sa PO 2 mg DAILY TIMOTHY Administration Vancomycin Protocol 1 lab 07/20/25 10:30 Vancomycin Trough/Random Due MC 07/20/25 12:30 DAILY TIMOTHY Lab / Micro Data Attestation: I reviewed the patient's lab results. 07/20/25 03:24 07/20/25 03:24 Labs: Laboratory Results - last 24 hr 07/19/25 11:25: POC Glucose 125 H 07/19/25 17:06: POC Glucose 166 H 07/19/25 22:54: POC Glucose 163 H 07/20/25 03:24: WBC 11.4 H, RBC 3.70 L, Hgb 10.5 L, Hct 33.0 L, MCV 89.2, MCH 28.4, MCHC 31.8 L, RDW Std Deviation 49.8 H, RDW Coeff of Shivam 15.4 H, Plt Count 385, MPV 9.6, Immature Gran % (Auto) 0.900, Neut % (Auto) 89.3 H, Lymph % (Auto)5.2 L, [place] % (Auto) 4.5, Eos % (Auto) 0.0, Baso % (Auto) 0.1, Absolute Neuts (auto) 10.2 H, Absolute Lymphs (auto) 0.59 L, Nucleated RBC % 0, Sodium 139, Potassium 4.4, Chloride 105, Carbon Dioxide 22.2, Anion Gap 12, BUN 42 H, Creatinine 0.89, Estim Creat Clear Calc 46.22 L, Est GFR (MDRD) Non-Af 69, BUN/Creatinine Ratio 47.3 H, Glucose 194 H, Calcium 8.2 07/20/25 05:07: POC Glucose 176 H Micro: Microbiology 07/16/25 04:20 Blood Culture (Wb) - Left Hand Blood Culture - Preliminary No growth in 48 hours. 07/16/25 04:05 Blood Culture (Wb) - Right Hand Blood Culture - Preliminary No growth in 48 hours. Assessment and Plan . Assessment and plan: IMPRESSIONS: 1. Acute respiratory failure with hypoxemia and hypercapnia -multifactorial with components of AE COPD plus acute heart failure/ pulmonary edema - pulmonary edema has cleared as of 07/19 CXR - continues to fail SAT with weaning of propofol- currently f/Vt is not too bad but she is showing enough distress that my sense is extubation will fail under current circumstances 2. History of coronary artery disease status post PCI/history of hypertrophic cardiomyopathy/valvular heart disease - diuresis for possible ASHF 3. Chronic tobacco dependency/depression/glaucoma/hyperlipidemia Complicates care, management, recovery and prognosis. Continue supportive measures as noted above. PT/OT to work with the patient. Continue tube feedingas tolerated. RECOMMENDATIONS: - blood gases reviewed, vent adjusted - continue daily SAT/ SBT - will increase Seroquel to 50 mg BID - continue remaining sedation regimen but try not to resume propofol - empiric antimicrobials. - continue bronchodilators and steroids. - tube feeding as tolerated. - standard ICU prophylaxis. Reid Murillo MD Critical Care Time: 50 minutes The entirety of this encounter was done via Telemedicine Physical Exam Const General Appearance: in distress and patient mechanically ventilated HEENT Mouth: endotracheal tube in place Resp no use of accessory muscles Auscultation: diminished lung sounds Subjective Subjective Continues to appear anxious/ uncomfortable with weaning of sedation- currently propofol is off and she grimaces/ winces but denies pain. 07/20/25906 <Electronically signed by Reid Murillo MD> Cosigner Signature (if applicable): CC: ~ Signed [facility] Work Phone: Progress note Author Eleazar Valle [facility] Note Date/Time July 21, 2025 10:38am [facility] Medical Records Department [address] [place] [address] Progress Note - Aoc Director Intelligence Officer 07/21/25 0734 MR#: [id number] Acct: [id number] Name: ZABRINA HSU Rep #:[id number] : 1955 70 From: Eleazar Valle DO PCP: SEUN Alvarez Status:ADM IN Location: ICU ICU01-1 Assessment & Plan Assessment/Plan (1) Acute respiratory failure with hypoxia and hypercapnia: PLAN: Plan RECOMMENDATIONS: 1. Proceed with a trial of extubation this morning. 2. Once extubated, wean supplemental oxygen as tolerated. 3. Perform bedside swallow evaluation with dietary advancement as tolerated. 4. Continue antibiotics to complete 7 days of therapy. (Completion will occur tomorrow) 5. Continue bronchodilators and steroids. 6. Diuresis as tolerated by hemodynamics and renal function. 7. Continue appropriate DVT prophylaxis. 8. Encourage incentive spirometer use and mobilize patient as tolerated. IMPRESSIONS: 1. Acute respiratory failure with hypoxemia and hypercapnia Most likely multifactorial in etiology. The patient has a known history of COPDand a longstanding tobacco abuse history, but presented to the emergency department profoundly hypertensive with what I suspect is a component of flash pulmonary edema. The patient was ultimately intubated in the emergency department. With supportive care, including antimicrobials, steroids and diuretics, the patient has improved clinically. The patient passed her spontaneous breathing trial this morning, and will therefore be extubated. Onceextubated, recommend weaning supplemental oxygen as tolerated. Perform bedside swallow evaluation with dietary advancement as tolerated. If needed, noninvasive positive pressure ventilatory support can be utilized if the patientdecompensates after extubation. 2. History of coronary artery disease status post PCI/history of hypertrophic cardiomyopathy/valvular heart disease Continue diuretics as tolerated by hemodynamics and renal function. 3. Chronic tobacco dependency/depression/glaucoma/hyperlipidemia Complicates care, management, recovery and prognosis. Continue supportive measures as noted above. PT/OT to work with the patient. Bedside swallow evaluation to be completed prior to advancement of diet. TIME: 35 minutes of critical care time, independent of procedures, was spent addressing the patient's acute respiratory failure with hypoxemia and hypercapnia, review of all data and collaboration with the care team. Subjective Subjective The patient was seen and examined at the bedside this morning. Events from the last 24 hours have been reviewed. The patient currently has a fever, but remains otherwise hemodynamically stable on assist-control mode of mechanical ventilation with an FiO2 requirement of 25% and PEEP of 5. The patient failed her spontaneous awakening/breathing trials over the weekend. White blood cell count this morning was noted to be 11,000 with a hemoglobin of 10.6 g/dL and normal platelet count. Creatinine is within normal limits. The patient has been tolerant of tube feeding. Following my initial evaluation of the patient, she was able to complete a spontaneous awakening trial, which was then followed by a complete spontaneous breathing trial. The patient was subsequently extubated. Objective Data Objective Data The patient's most recent lab work, culture data and imaging studies have all been personally reviewed. Surface echocardiogram demonstrated mild concentric LVH with an ejection fraction of 55% and stage I diastolic dysfunction. Sputum,blood and urine cultures have not demonstrated any growth to date. Vital Signs: Vital Signs Temp Pulse Resp BP Pulse Ox O2 Del Method O2 Flow Rate 1101.6 F H 70 20 H 159/63 H 96 Mechanical Ventilator 94 07/21/25 07:00 07/21/25 07:00 07/21/25 07:00 07/21/25 07:00 07/21/25 07:00 07/21/25 07:00 07/17/25 01:00 FiO2 25 07/21/25 07:00 Oxygen Flow Rate (L/min) 94 Oxygen Delivery Method Mechanical Ventilator Weight: 114 lb 6.719 oz Body Mass Index (BMI) 19.5 Intake & Output: Intake and Output for Last 24 Hours 07/19/25 07/20/25 07/21/25 23:59 23:59 23:59 Intake Total 2999.69 / 3036.09 2358.52 / 2467.62 496.23 / 496.23 Output Total 2100 / 2100 2475 / 2475 400 / 400 Balance 899.69 / 936.09 -116.48 / -7.38 96.23 / 96.23 Lab / Micro Data Attestation: I reviewed the patient's lab results. 07/21/25 03:30 07/21/25 03:30 Labs: Laboratory Results - last 24 hr 07/20/25 10:50: Vancomycin Trough 13.3 07/20/25 11:59: POC Glucose 170 H 07/20/25 18:09: POC Glucose 179 H 07/20/25 23:47: POC Glucose 159 H 07/21/25 03:30: WBC 11.5 H, RBC 3.70 L, Hgb 10.6 L, Hct 32.5 L, MCV 87.8, MCH 28.6, MCHC 32.6, RDW Std Deviation 48.8 H, RDW Coeff of Shivam 15.3 H, Plt Count 389, MPV 9.5, Immature Gran % (Auto) 1.800 H, Neut % (Auto) 83.2 H, Lymph % (Auto) 8.8 L, [place] % (Auto) 5.8, Eos % (Auto) 0.1, Baso % (Auto) 0.3, Absolute Neuts (auto) 9.5 H, Absolute Lymphs (auto) 1.01, Nucleated RBC % 0, Sodium 141, Potassium 3.9, Chloride 104, Carbon Dioxide 23.5, Anion Gap 14, BUN 39 H, Creatinine 0.83, Estim Creat Clear Calc 50.05, Est GFR (MDRD) Non-Af 76, BUN/Creatinine Ratio 47.6 H, Glucose 167 H, Calcium 8.6 07/21/25 05:34: POC Glucose 161 H Micro: Microbiology 07/16/25 04:20 Blood Culture (Wb) - Left Hand Blood Culture - Preliminary No growth in 48 hours. 07/16/25 04:05 Blood Culture (Wb) - Right Hand Blood Culture - Preliminary No growth in 48 hours. 07/16/25 03:44 Urine, Catheterized Urine Culture - Final Culture exhibits no growth. 07/16/25 03:36 Sputum, Induced/Lukens Gram Stain - Final 07/16/25 03:36 Sputum, Induced/Lukens Respiratory Culture - Final Mixed normal respiratory renu. No Streptococcus pneumoniae, beta-hemolytic Streptococcus or Staphylococcus aureus isolated. 07/16/25 10:30 Nasal Secretion MRSA (PCR) - Final 07/16/25 09:20 Mucosa - Nasopharyngeal Respiratory Panel (PCR) - Final 07/16/25 08:25 Urine Catheter - Madrigal Legionella Antigen - Final 07/16/25 08:25 Urine Catheter - Madrigal Streptococcus pneumoniae Antigen (M - Final 07/16/25 03:44 Mucosa - Nose SARS-CoV-2, Influenza & RSV (PCR) - Final ABG Data ABG results: ABG 07/16/25 09:42 Specimen Type ART Sample Site L Radial pH 7.49 H Bicarbonate Actual 29.1 H Total CO2 30 Base Excess 6 H O2 Saturation 98 O2 % 50.0 ABG pCO2 38.6 ABG pO2 96 Judith Test N/A Respiration Rate 20 O2 Delivery Device Adult Vent Vent Mode AC Tidal Volume 400.0 POC PEEP 5 Radiography Diagnostic Testing: Radiology Impression Echocardiogram 07/16/25 06:31 Interpretation Summary Mild concentric left ventricular hypertrophy. Inferior hypokinesis. Estimated LVEF 55%. Stage I diastolic dysfunction. Moderate posterior mitral valve annular calcification. Calcified chord. Mild mitral valve regurgitation. Mild tricuspid valve insufficiency. Mildly calcified aortic valve leaflets. Aortic valve sclerosis without stenosis. Mild (1+) pulmonic valve insufficiency. Ordering Physician: Jack Zuniga Performed By: Jake Miguel RCS Chest X-Ray 07/16/25 09:05 IMPRESSION: Tubes and lines in position. There interstitial infiltrates in the perihilar region bilaterally and in the left upper lung. Reading Location: [facility] Chest X-Ray 07/17/25 05:10 IMPRESSION: Tubes and lines in position. There are perihilar infiltrates in the right and left, improved. Reading Location: [facility] Physical Exam Const Constitutional Narrative: The patient remains intubated and mechanically ventilated. Currently toleratingspontaneous mode of mechanical ventilation. General Appearance: frail HEENT normocephalic and head/scalp atraumatic Mouth: endotracheal tube in place and OG tube in place Eyes EOMs intact bilaterally, conjunctivae normal and no scleral icterus Neck supple General: trachea midline Chest Chest Narrative: Increased AP diameter. Resp Auscultation: diminished lung sounds; Negative for rales, rhonchi or wheezes Cardio regular rate and regular rhythm GI normal to inspection, nondistended, normoactive bowel sounds Extremity no clubbing, cyanosis or edema Skin no rashes or lesions noted Neuro Neuro Narrative: Alert and able to follow simple commands. Charges/Coding Procedures Hospitalists Procedures: [id number] Critical Care 1st Hr 07/21/25 1038 <Electronically signed by Eleazar Valle DO> Cosigner Signature (if applicable): CC: ~ Signed [facility] Work Phone: Progress note Author Renee Encarnacion [facility] Note Date/Time July 21, 2025 5:28pm [facility] Medical Records Department [address] [place] [address] Progress Note 07/21/25 1406 MR#: [id number] Acct: [id number] Name: ZABRINA HSU Rep #:[id number] : 1955 70 From: Renee Encarnacion MD PCP: SEUN Alvarez Status:ADM IN Location: ICU ICU01-1 Subjective Subjective Patient seen and examined this morning. She was extubated this morning. She was on 2 L of oxygen. Patient was very tearful during my review. She denied being in pain or feeling short of breath but would not or could not tell me exactly was wrong with her that she was tearful. Unable to do review of systemsdue to her being tearful. SHe is on 2L of oxygen. Objective Data Objective Data Vital Signs: Vital Signs Temp Pulse Resp BP Pulse Ox O2 Del Method O2 Flow Rate 100.9 F H 88 15 170/69 H 100 Nasal Cannula 2 07/21/25 11:00 07/21/25 14:00 07/21/25 14:00 07/21/25 14:00 07/21/25 14:00 07/21/25 14:00 07/21/25 14:00 FiO2 35 07/21/25 08:00 Oxygen Flow Rate (L/min) 2 Oxygen Delivery Method Nasal Cannula Weight: 114 lb 6.719 oz Body Mass Index (BMI) 19.5 Intake & Output: Intake and Output for Last 24 Hours 07/19/25 07/20/25 07/21/25 23:59 23:59 23:59 Intake Total 2999.69 / 3036.09 2358.52 / 2467.62 1789.96 / 1789.96 Output Total 2100 / 2100 2475 / 2475 1750 / 1750 Balance 899.69 / 936.09 -116.48 / -7.38 39.96 / 39.96 Lab / Micro Data 07/21/25 03:30 07/21/25 03:30 Labs: Laboratory Results - last 24 hr 07/20/25 18:09: POC Glucose 179 H 07/20/25 23:47: POC Glucose 159 H 07/21/25 03:30: WBC 11.5 H, RBC 3.70 L, Hgb 10.6 L, Hct 32.5 L, MCV 87.8, MCH 28.6, MCHC 32.6, RDW Std Deviation 48.8 H, RDW Coeff of Shivam 15.3 H, Plt Count 389, MPV 9.5, Immature Gran % (Auto) 1.800 H, Neut % (Auto) 83.2 H, Lymph % (Auto) 8.8 L, [place] % (Auto) 5.8, Eos % (Auto) 0.1, Baso % (Auto) 0.3, Absolute Neuts (auto) 9.5 H, Absolute Lymphs (auto) 1.01, Nucleated RBC % 0, Sodium 141, Potassium 3.9, Chloride 104, Carbon Dioxide 23.5, Anion Gap 14, BUN 39 H, Creatinine 0.83, Estim Creat Clear Calc 50.05, Est GFR (MDRD) Non-Af 76, BUN/Creatinine Ratio 47.6 H, Glucose 167 H, Calcium 8.6 07/21/25 05:34: POC Glucose 161 H 07/21/25 11:55: POC Glucose 126 H Micro: Microbiology 07/16/25 04:20 Blood Culture (Wb) - Left Hand Blood Culture - Final No growth in 5 days. 07/16/25 04:05 Blood Culture (Wb) - Right Hand Blood Culture - Final No growth in 5 days. 07/16/25 03:44 Urine, Catheterized Urine Culture - Final Culture exhibits no growth. 07/16/25 03:36 Sputum, Induced/Lukens Gram Stain - Final 07/16/25 03:36 Sputum, Induced/Lukens Respiratory Culture - Final Mixed normal respiratory renu. No Streptococcus pneumoniae, beta-hemolytic Streptococcus or Staphylococcus aureus isolated. 07/16/25 10:30 Nasal Secretion MRSA (PCR) - Final 07/16/25 09:20 Mucosa - Nasopharyngeal Respiratory Panel (PCR) - Final 07/16/25 08:25 Urine Catheter - Madrigal Legionella Antigen - Final 07/16/25 08:25 Urine Catheter - Madrigal Streptococcus pneumoniae Antigen (M - Final 07/16/25 03:44 Mucosa - Nose SARS-CoV-2, Influenza & RSV (PCR) - Final Physical Exam Const alert Constitutional Narrative: tearful, in mild distress HEENT normocephalic, head/scalp atraumatic and oropharynx normal Eyes EOMs intact bilaterally Neck supple Lymph Lymphatic: no lymphedema noted Resp Resp Narrative: mildly diminished breath sounds bibasally, no wheezes or crackles. On 2L of oxygen by nasal canula Cardio regular rate, regular rhythm, S1 normal heart sound, S2 normal heart sound and no murmurs GI normal to inspection, nondistended, normoactive bowel sounds, soft to palpation and non-tender Extremity normal capillary refill General Extremity: no tenderness to palpation of joints or extremities Skin General Skin Exam: no breakdown Neuro no focal motor deficits and no sensory deficits noted Motor Exam: general weakness Psych Psych Narrative: patient very tearful Mood & Affect: anxious Assessment & Plan Assessment/Plan (1) Acute respiratory failure with hypoxia and hypercapnia: (2) Pneumonia: QUALIFIERS: Pneumonia type: due to unspecified organism Laterality: bilateral Lung location: unspecified part of lung Qualified Code(s): J18.9 - Pneumonia, unspecified organism PLAN: Plan #Acute hypoxic respiratory failure * Patient extubated this morning. Currently on 2 L of oxygen. * Thought to be due to acute exacerbation of COPD as well as heart failure and possible pneumonia. On empiric IV ceftriaxone and azithromycin. * Urine for strep and Legionella negative. Respiratory panel negative. * Awaiting swallow evaluation today. Titrate oxygen to maintain saturation above 90%. * On IV Solu-Medrol as well as IV Lasix. * To complete a 7-day course of antibiotics. #Elevated troponin: * 2D echo showed no regional wall motion abnormalities. * 2D echo showed EF of 55% and inferior hypokinesis. * Thought to be due to demand ischemia from hypertension and respiratory failure. No need for further workup now. #Hypertensive emergency: * Blood pressure was markedly elevated at 257/127 on admission and there were concerns of flash pulmonary edema. * IV hydralazine as needed. Resume oral meds once patient passes swallow evaluation. #CAD s/p stents: On sublingual nitroglycerin. 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 Currently stable. #Hyperlipidemia: On statin #Depression: On venlafaxine #History of glaucoma: On brimonidine and dorzolamide eyedrops DVT prophylaxis: Lovenox Charges/Coding Visit Charges Inpatient E&M: 66538 Subs Hosp L2 07/21/25 6632 <Electronically signed by Renee Encarnacion MD> Renee Encarnacion MD Cosigner Signature (if applicable): CC: ~ Signed [facility] Work Phone: progress note Author Earline Camargo [facility] Note Date/Time July 21, 2025 9:09pm [facility] Medical Records Department [address] [place] [address] Progress Note - Hospitalist 07/21/252058 MR#: [id number] Acct: [id number] Name: ZABRINA HSU Rep #:[id number] : 1955 70 From: Earline Mayo P-C PCP: SEUN Alvarez Status:ADM IN Location: ICU ICU01-1 Hospitalist Note Pt sitting up in chair surrounded by family, hyperventilating, anxious, and hypertensive. Extubated from vent this AM. Reports not getting enough air, SBP 153, HR 110s, RR low 30s, p.oximetry 89% and shaky without reliant waveform pleth. I ordered morphine 2mg IV x1 now for air hunger and anxiety; this was given at 1936; Briefly effective. 2049-pt states that her hands are tingling; SBP 176, RR 25, p.ox 97%. I ordered haloperidol 2mg IV x1 now as she is NPO and unable to take her scheduled quetiapine 50mg this night. QT measures 0.33 07/21/252108 <Electronically signed by Earline Camargo GEOSCIENTIST-C> Cosigner Signature (if applicable): CC: ~ Signed [facility] Work Phone: Prosolel note Author Eleazar Valle [facility] Note Date/Time July 22, 2025 8:48am [facility] Medical Records Department [address] [facility] [place] [address] Progress Note - Aoc Director Intelligence Officer 07/22/25 0843 MR#: [id number] Acct: [id number] Name: ZABRINA HSU Rep #:[id number] : 1955 70 From: Eleazar Valle DO PCP: SEUN Alvarez Status:ADM IN Location: ICU ICU01-1 Assessment & Plan Assessment/Plan (1) Acute respiratory failure with hypoxia and hypercapnia: PLAN: Plan RECOMMENDATIONS: 1. Supplemental oxygen to maintain saturations at or above 90%. 2. Antibiotics to be completed today. 3. Continue scheduled bronchodilators and steroids. 4. Modified barium swallow with possible dietary advancement. 5. Resume antihypertensive regimen once the patient is able to tolerate p.o. intake. 6. Potassium repletion as ordered. 7. Initiate nicotine replacement therapy. 8. Continue ongoing diuresis as tolerated by hemodynamics and renal function. 9. Continue appropriate DVT prophylaxis. Encourage incentive spirometer use and mobilize patient as tolerated. IMPRESSIONS: 1. Acute respiratory failure with hypoxemia and hypercapnia Most likely multifactorial in etiology. The patient has a known history of COPDand a longstanding tobacco abuse history, but presented to the emergency department profoundly hypertensive with what I suspect is a component of flash pulmonary edema. The patient was ultimately intubated in the emergency department. With supportive care, including antimicrobials, steroids and diuretics, the patient improved clinically and was able to be extubated on July 21. We are awaiting modified barium swallow prior to advancement of diet. The patient's blood pressure remains uncontrolled. Therefore, she will remain on nicardipine until her diet is able to be advanced and antihypertensiveregimen restarted. Given the patient's longstanding tobacco abuse history, willinitiate nicotine replacement therapy today. Continue BiPAP therapy nightly andas needed throughout the day. Continue to wean supplemental oxygen as tolerated. Encourage incentive spirometer use and mobilize patient as tolerated. In light of the patient suspected underlying advanced stage COPD, coupled with her anxiety and air hunger, will obtain palliative care consultation to assist with symptom management. 2. History of coronary artery disease status post PCI/history of hypertrophic cardiomyopathy/valvular heart disease Continue diuretics as tolerated by hemodynamics and renal function. 3. Chronic tobacco dependency/depression/glaucoma/hyperlipidemia Complicates care, management, recovery and prognosis. Continue supportive measures as noted above. PT/OT to work with the patient. Tentative plans for modified barium swallow today prior to advancement of diet. This note was generated with [email or web address] software. It may contain incorrectwords, spelling, and punctuation that were not noted in checking the note beforesigning. Subjective Subjective The patient was seen and examined at the bedside this morning. Events from the last 24 hours have been reviewed. The patient is currently afebrile, hemodynamically stable and maintaining appropriate oxygen saturations on 4 L/minvia nasal cannula. The patient was tolerant of BiPAP therapy for a portion of the night. She did become hypertensive last evening and was ultimately placed on nicardipine, pending further speech therapy evaluation today and possible dietary advancement. She did report that she typically smokes 0.5 packs of cigarettes per day. Potassium is low this morning at 3.2. Creatinine remains within normal limits. Objective Data Objective Data The patient's most recent lab work, culture data and imaging studies have all been personally reviewed. Surface echocardiogram demonstrated mild concentric LVH with an ejection fraction of 55% and stage I diastolic dysfunction. Sputum,blood and urine cultures have not demonstrated any growth to date. Vital Signs: Vital Signs Temp Pulse Resp BP Pulse Ox O2 Del Method O2 Flow Rate 98.7 F 105 H 22 H 161/68 H 95 Nasal Cannula 4 07/22/25 04:00 07/22/25 07:00 07/22/25 07:00 07/22/25 07:00 07/22/25 07:00 07/22/25 07:00 07/22/25 07:00 FiO2 91 07/22/25 06:46 Oxygen Flow Rate (L/min) 4 Oxygen Delivery Method Nasal Cannula Weight: 111 lb 12.39 oz Body Mass Index (BMI) 19.1 Intake & Output: Intake and Output for Last 24 Hours 07/20/25 07/21/25 07/22/25 23:59 23:59 23:59 Intake Total 2358.52 / 2467.62 2303.71 / 2322.46 1567.50 / 1567.50 Output Total 2475 / 2475 3050 / 3050 950 / 950 Balance -116.48 / -7.38 -746.29 / -727.54 617.50 / 617.50 Lab / Micro Data Attestation: I reviewed the patient's lab results. 07/22/25 04:45 07/22/25 04:45 Labs: Laboratory Results - last 24 hr 07/21/25 11:55: POC Glucose 126 H 07/21/25 17:06: POC Glucose 49 L 07/21/25 17:33: POC Glucose 202 H 07/21/25 18:24: POC Glucose 52 L 07/21/25 23:19: POC Glucose 82 07/22/25 04:45: WBC 11.8 H, RBC 3.71 L, Hgb 10.7 L, Hct 32.9 L, MCV 88.7, MCH 28.8, MCHC 32.5, RDW Std Deviation 49.1 H, RDW Coeff of Shivam 15.3 H, Plt Count 452 H, MPV 9.5, Immature Gran % (Auto) 2.500 H, Neut % (Auto) 84.7 H, Lymph % (Auto) 8.4 L, [place] % (Auto) 4.1, Eos % (Auto) 0.0, Baso % (Auto) 0.3, Absolute Neuts (auto) 10.0 H, Absolute Lymphs (auto) 1.00, Nucleated RBC % 0, Sodium 142,Potassium 3.2 L, Chloride 106, Carbon Dioxide 22.3, Anion Gap 14, BUN 30 H, Creatinine 0.76, Estim Creat Clear Calc 52.85, Est GFR (MDRD) Non-Af 84, BUN/Creatinine Ratio 39.5 H, Glucose 160 H, Calcium 8.3 07/22/25 05:43: POC Glucose 169 H 07/22/25 06:40: POC Glucose 174 H Micro: Microbiology 07/16/25 04:20 Blood Culture (Wb) - Left Hand Blood Culture - Final No growth in 5 days. 07/16/25 04:05 Blood Culture (Wb) - Right Hand Blood Culture - Final No growth in 5 days. 07/16/25 03:44 Urine, Catheterized Urine Culture - Final Culture exhibits no growth. 07/16/25 03:36 Sputum, Induced/Lukens Gram Stain - Final 07/16/25 03:36 Sputum, Induced/Lukens Respiratory Culture - Final Mixed normal respiratory renu. No Streptococcus pneumoniae, beta-hemolytic Streptococcus or Staphylococcus aureus isolated. 07/16/25 10:30 Nasal Secretion MRSA (PCR) - Final 07/16/25 09:20 Mucosa - Nasopharyngeal Respiratory Panel (PCR) - Final 07/16/25 08:25 Urine Catheter - Madrigal Legionella Antigen - Final 07/16/25 08:25 Urine Catheter - Madrigal Streptococcus pneumoniae Antigen (M - Final 07/16/25 03:44 Mucosa - Nose SARS-CoV-2, Influenza & RSV (PCR) - Final ABG Data ABG results: ABG 07/16/25 09:42 Specimen Type ART Sample Site L Radial pH 7.49 H Bicarbonate Actual 29.1 H Total CO2 30 Base Excess 6 H O2 Saturation 98 O2 % 50.0 ABG pCO2 38.6 ABG pO2 96 Judith Test N/A Respiration Rate 20 O2 Delivery Device Adult Vent Vent Mode AC Tidal Volume 400.0 POC PEEP 5 Radiography Diagnostic Testing: Radiology Impression Echocardiogram 07/16/25 06:31 Interpretation Summary Mild concentric left ventricular hypertrophy. Inferior hypokinesis. Estimated LVEF 55%. Stage I diastolic dysfunction. Moderate posterior mitral valve annular calcification. Calcified chord. Mild mitral valve regurgitation. Mild tricuspid valve insufficiency. Mildly calcified aortic valve leaflets. Aortic valve sclerosis without stenosis. Mild (1+) pulmonic valve insufficiency. Ordering Physician: Jack Zuniga Performed By: Jake Miguel RCS Chest X-Ray 07/16/25 09:05 IMPRESSION: Tubes and lines in position. There interstitial infiltrates in the perihilar region bilaterally and in the left upper lung. Reading Location: [facility] Chest X-Ray 07/17/25 05:10 IMPRESSION: Tubes and lines in position. There are perihilar infiltrates in the right and left, improved. Reading Location: [facility] Physical Exam Const alert, oriented x3 and no apparent distress General Appearance: cooperative, ill appearing Positive for chronically and frail HEENT normocephalic and head/scalp atraumatic Eyes EOMs intact bilaterally, conjunctivae normal and no scleral icterus Neck supple General: trachea midline Chest Chest Narrative: Increased AP diameter. Resp Auscultation: diminished lung sounds; Negative for rales, rhonchi or wheezes Cardio regular rate and regular rhythm GI normal to inspection, nondistended, normoactive bowel sounds Extremity no clubbing, cyanosis or edema Skin no rashes or lesions noted Neuro CN's II-XII intact bilaterally, moves all extremities and no focal motor deficits Psych cooperative and affect normal Charges/Coding Visit Charges Inpatient E&M: 24573 Subs Hosp L3 07/22/25 0848 <Electronically signed by Eleazar Valle DO> Cosigner Signature (if applicable): CC: ~ Signed [facility] Work Phone: Progress note Author Renee Encarnacion [facility] Note Date/Time July 22, 2025 6:37pm [facility] Medical Records Department [address] [place] [address] Progress Note 07/22/25 1112 MR#: [id number] Acct: [id number] Name: ZABRINA HSU Rep #:[id number] : 1955 70 From: Renee Encarnacion MD PCP: SEUN Alvarez Status:ADM IN Location: ICU ICU01-1 Subjective Subjective Patient seen and examined. She feels better today and had no active complaints. She is on 4L of oxygen. She is tachycardic and tachypneic. She denied any fever,chills, cough, chest pain, palpitations, dizziness, nausea, vomiting or any other symptoms. Review of systems is otherwise negative. Objective Data Objective Data Vital Signs: Vital Signs Temp Pulse Resp BP Pulse Ox O2 Del Method O2 Flow Rate 98.6 F 115 H 21 H 126/73 H 95 Nasal Cannula 4 07/22/25 09:30 07/22/25 09:30 07/22/25 09:30 07/22/25 09:30 07/22/25 09:30 07/22/25 09:30 07/22/25 09:30 FiO2 91 07/22/25 06:46 Oxygen Flow Rate (L/min) 4 Oxygen Delivery Method Nasal Cannula Weight: 111 lb 12.39 oz Body Mass Index (BMI) 19.1 Intake & Output: Intake and Output for Last 24 Hours 07/20/25 07/21/25 07/22/25 23:59 23:59 23:59 Intake Total 2358.52 / 2467.62 2303.71 / 2322.46 1972.75 / 1972.75 Output Total 2475 / 2475 3050 / 3050 3150 / 3150 Balance -116.48 / -7.38 -746.29 / -727.54 -1176.25 / -1176.25 Lab / Micro Data 07/22/25 04:45 07/22/25 04:45 Labs: Laboratory Results - last 24 hr 07/21/25 11:55: POC Glucose 126 H 07/21/25 17:06: POC Glucose 49 L 07/21/25 17:33: POC Glucose 202 H 07/21/25 18:24: POC Glucose 52 L 07/21/25 23:19: POC Glucose 82 07/22/25 04:45: WBC 11.8 H, RBC 3.71 L, Hgb 10.7 L, Hct 32.9 L, MCV 88.7, MCH 28.8, MCHC 32.5, RDW Std Deviation 49.1 H, RDW Coeff of Shivam 15.3 H, Plt Count 452 H, MPV 9.5, Immature Gran % (Auto) 2.500 H, Neut % (Auto) 84.7 H, Lymph % (Auto) 8.4 L, [place] % (Auto) 4.1, Eos % (Auto) 0.0, Baso % (Auto) 0.3, Absolute Neuts (auto) 10.0 H, Absolute Lymphs (auto) 1.00, Nucleated RBC % 0, Sodium 142,Potassium 3.2 L, Chloride 106, Carbon Dioxide 22.3, Anion Gap 14, BUN 30 H, Creatinine 0.76, Estim Creat Clear Calc 52.85, Est GFR (MDRD) Non-Af 84, BUN/Creatinine Ratio 39.5 H, Glucose 160 H, Calcium 8.3 07/22/25 05:43: POC Glucose 169 H 07/22/25 06:40: POC Glucose 174 H Micro: Microbiology 07/16/25 04:20 Blood Culture (Wb) - Left Hand Blood Culture - Final No growth in 5 days. 07/16/25 04:05 Blood Culture (Wb) - Right Hand Blood Culture - Final No growth in 5 days. 07/16/25 03:44 Urine, Catheterized Urine Culture - Final Culture exhibits no growth. 07/16/25 03:36 Sputum, Induced/Lukens Gram Stain - Final 07/16/25 03:36 Sputum, Induced/Lukens Respiratory Culture - Final Mixed normal respiratory renu. No Streptococcus pneumoniae, beta-hemolytic Streptococcus or Staphylococcus aureus isolated. 07/16/25 10:30 Nasal Secretion MRSA (PCR) - Final 07/16/25 09:20 Mucosa - Nasopharyngeal Respiratory Panel (PCR) - Final 07/16/25 08:25 Urine Catheter - Madrigal Legionella Antigen - Final 07/16/25 08:25 Urine Catheter - Madrigal Streptococcus pneumoniae Antigen (M - Final 07/16/25 03:44 Mucosa - Nose SARS-CoV-2, Influenza & RSV (PCR) - Final Physical Exam Const alert and no apparent distress HEENT normocephalic, head/scalp atraumatic, moist oral mucous membranes and oropharynxnormal Eyes PERRL, EOMs intact bilaterally and conjunctivae normal Neck no lymphadenopathy and supple Lymph Lymphatic: no lymphedema noted Resp Resp Narrative: mildly diminished breath sounds bibasally, no wheezes or crackles. On 4 L of oxygen by nasal canula Cardio regular rhythm, S1 normal heart sound, S2 normal heart sound and no murmurs Cardio Narrative: tachycardic GI normal to inspection, nondistended, normoactive bowel sounds, soft to palpation,non-tender and non-distended Extremity normal to inspection, full ROM, normal capillary refill and no clubbing, cyanosis or edema General Extremity: no tenderness to palpation of joints or extremities Skin General Skin Exam: no breakdown Neuro moves all extremities, no focal motor deficits and no sensory deficits noted Sensorium / Orientation: awake and alert Motor Exam: general weakness Psych thought process normal Appearance: appropriate Assessment & Plan Assessment/Plan (1) Acute respiratory failure with hypoxia and hypercapnia: (2) Pneumonia: QUALIFIERS: Pneumonia type: due to unspecified organism Laterality: bilateral Lung location: unspecified part of lung Qualified Code(s): J18.9 - Pneumonia, unspecified organism PLAN: Plan #Acute hypoxic respiratory failure * Patient extubated on 07/21/2025. Currently on 2 L of oxygen. * Thought to be due to acute exacerbation of COPD as well as heart failure and possible pneumonia. On empiric IV ceftriaxone and azithromycin. * Urine for strep and Legionella negative. Respiratory panel negative. * Failed swallow eval yesterday. Titrate oxygen to maintain saturation above 90%. * On IV Solu-Medrol as well as IV Lasix. * To complete a 7-day course of antibiotics. * To have repeat swallow eval today. #Elevated troponin: * 2D echo showed no regional wall motion abnormalities. * 2D echo showed EF of 55% and inferior hypokinesis. * Thought to be due to demand ischemia from hypertension and respiratory failure. No need for further workup now. #Hypertensive emergency: * Blood pressure was markedly elevated at 257/127 on admission and there were concerns of flash pulmonary edema. * IV hydralazine as needed. Resume oral meds once patient passes swallow evaluation. * she had to be placed on nicardipine drip yesterday as BP was markedly elevated. To titrate and wean off nicardipine today as tolerated and after repeat swallow eval, will check to see if she can resume her oral meds. #CAD s/p stents: On sublingual nitroglycerin. 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 Currently stable. #Hyperlipidemia: On statin #Depression: On venlafaxine #History of glaucoma: On brimonidine and dorzolamide eyedrops DVT prophylaxis: Lovenox Charges/Coding Visit Charges Inpatient E&M: 38458 Subs Hosp L2 07/22/25 175 <Electronically signed by Renee Encarnacion MD> Renee Encarnacion MD Cosigner Signature (if applicable): CC: ~ Signed ADDENDUM by Dr. Renee Encarnacion MD on 07/22/25 at 1837 Addendum Patient not able to take in orally so patient started on p.o. metoprolol 25 mg twice daily. Heart rate in the 130s so patient given a bolus of Cardizem this evening and started on the p.o. metoprolol. IV Lopressor as needed also ordered. 07/22/25 183 <Electronically signed by Renee larios MD> Date _ Renee Encarnacion MD Cosigner Signature (if applicable): Date cc: ~* Signed [facility] Work Phone: Reason for referral (narrative)* Consultation (Routine) - Authorized Specialty Diagnoses / Procedures Referred By Contac t Referred To Contact Primary Care Procedures Follow Up In Primary Care - Established Elvin Blanc PA-C [address] [place] [address] Referral ID Status Reason Start Date Expiration Date V isits Requested Visits Authorized [id number] Authorized 09/18/2023 09/17/2024 1 1 [facility] Work Phone: Reason for referral (narrative)No reason for referral information availableWCleveland Clinic [facility] Work Phone: Summary Purpose Family History No Family History Records Found Relationship Condition Age at Onset Recorded Date/T dajuan mother Diabetes mellitus Unknown Advance Directives No Advanced Directives Records Found Advance Directive Response Recorded Date/ Time Do you have a Healthcare Power of Cementer Machine Applicator? No July 16, 2025 7:58am Chief Complaint and Reason for Visit Chief Complaint Admit Date AE COPD, PRKLZ-EI-BOEULEN RESP FAILURE S [facility] 2024 6:21am AE COPD, EJWEG-BH-ETRYSBN RESP FAILURE S [facility] 2024 8:12am AE COPD, DJANW-LG-MPTYZKH RESP FAILURE S [facility] 2024 12:00pm AE COPD, VDDEH-JX-SJPIUPQ RESP FAILURE S [facility] 2024 7:04am AE COPD, FPBGG-AX-VCLUOXG RESP FAILURE S [facility] 2024 7:37am AE COPD, YJWRB-RJ-WICJIAL RESP FAILURE S [facility] 2024 7:39am AE COPD, NVARA-DJ-FDIEBHL RESP FAILURE S [facility] 2024 8:07am AE COPD, LFMCW-AP-GPGVSAL RESP FAILURE S [facility] 2024 7:58am AE COPD, ZLLAU-OB-BERSHNC RESP FAILURE S [facility] 2024 8:36am AE COPD, GOVGZ-LE-PZEDTRC RESP FAILURE S [facility] 2024 7:34am AE COPD, WALIF-LY-ZODSUNF RESP FAILURE S [facility] 2024 2:06pm AE COPD, ISXGA-WC-DYAQAVN RESP FAILURE S [facility]2024 8:43am AE COPD, JVWWO-HM-WFVLMCJ RESP FAILURE S [facility] 2024 11:12am AE COPD, SBNXK-MQ-QTZCAFG RESP FAILURE S [facility] 2024 12:15pm Reason for Visit Admit Date Acute hypoxic on chronic hypercapnic res piratory failure July 16, 2025 6:21am Acute respiratory failure with hypoxia a nd hypercapnia July 16, 2025 6:21am Counseling regarding goals of care Dequan [facility] 2024 6:21am Elevated troponin July 16, 2025 6:21am Hyperglycemia July 16, 2025 6:21am Hypertensive emergency July 16, 2 025 6:21am Lactic acidosis July 16, 2025 6:21am Leukocytosis July 16, 2025 6:21am Palliative care encounter June 6:21am Pneumonia July 16, 2025 6:21am Sepsis July 16, 2025 6:21am Transaminitis July 16, 2025 6:21am CHF exacerbation July 16, 2025 6:21am COPD exacerbation July 16, 2025 6:21am Chief Complaint Admit Date AE COPD, ZOULZ-LK-WSZJMTG RESP FAILURE S [facility]2024 6:21am AE COPD, PDZTC-UV-OFMSYRP RESP FAILURE S [facility] 2024 8:12am AE COPD, QROKX-PT-WLPVQKT RESP FAILURE S [facility] 2024 12:00pm AE COPD, BKDYN-UM-TWMCGQE RESP FAILURE S [facility]2024 7:04am AE COPD, CWRJX-UW-TYFEYWX RESP FAILURE S [facility] 2024 7:37am AE COPD, BNFVP-ME-EOFDDZT RESP FAILURE S [facility] 2024 7:39am AE COPD, OMMFP-SV-WUMJFCS RESP FAILURE S eptember 2024 8:07am AE COPD, VYTSR-WG-KDMKAYR RESP FAILURE S eptember 2024 7:58am AE COPD, HMVMT-UX-JSACWMF RESP FAILURE S eptember 2024 8:36am AE COPD, YFZNB-CT-PEWSUJI RESP FAILURE S eptember 2024 7:34am AE COPD, QVDKF-PP-YCPTCLV RESP FAILURE S eptember 2024 2:06pm AE COPD, VZGQY-KI-EEZITDP RESP FAILURE S eptember 2024 8:43am AE COPD, RDBCA-NC-BFJIXJC RESP FAILURE S eptember 2024 11:12am AE COPD, AAHGJ-HM-SZATDSY RESP FAILURE S eptember 2024 12:15pm AE COPD, MWINN-IO-AGEHALM RESP FAILURE O ctober 2024 7:38am AE COPD, DEEJF-ND-VXKUVPG RESP FAILURE O ctober 2024 12:12pm AE COPD, IFNUD-SC-MJGYFUQ RESP FAILURE O ctober 2024 5:12pm AE COPD, OGOYC-GE-CCMPLES RESP FAILURE O ctober 2024 3:15pm AE COPD, ZJWIO-UW-WGWWBCE RESP FAILURE O ctober 2024 12:43pm AE COPD, IVAKS-RQ-RBJNNDD RESP FAILURE O ctober 2024 4:09pm Reason for Visit Admit Date Acute hypoxic on chronic hypercapnic res piratory failure July 16, 2025 6:21am Acute respiratory failure with hypoxia a nd hypercapnia July 16, 2025 6:21am Counseling regarding goals of care Dequan cristobal 2024 6:21am Elevated troponin July 16, 2025 6:21am Hyperglycemia July 16, 2025 6:21am Hypertensive emergency July 16, 2 025 6:21am Lactic acidosis July 16, 2025 6:21am Leukocytosis July 16, 2025 6:21am Multifocal atrial tachycardia July 16, 2025 6:21am Palliative care encounter June 6:21am Pneumonia July 16, 2025 6:21am Sepsis July 16, 2025 6:21am Transaminitis July 16, 2025 6:21am CHF exacerbation July 16, 2025 6:21am COPD exacerbation July 16, 2025 6:21am Additional Source Comments INFORMATION SOURCE (unrecogn ized section and content) DATE CREATED AUTHOR 11/04/2020 [facility] DATE CREATED AUTHOR AUTHOR'S ORGANIZ ATION 09/03/2023 [facility] ([place]) DATE CREATED AUTHOR AUTHOR'S ORGANIZ ATION 09/22/2023 [facility] ([place]) DATE CREATED AUTHOR AUTHOR'S ORGANIZ ATION 07/10/2025 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 [place] [place] [address] PCP - General Internal Medicine 09/12/23 Fercho Villaseñor DO [address] 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 [place] [place] [address] PCP - General Family Medicine 10/03/24 Team Status: Active Member Role/Relationship Status Dates Alfonso Ozuna GEOSCIENTIST, GEOSCIENTIST-C Primary care physician Active Team Status: Active Member Role/Relationship Status Dates Alfonso Ozuna GEOSCIENTIST, GEOSCIENTIST-C Primary care physician Active Start: July 16, 2025 Dr. Bernardo Sharif DO Emergency Departm ent Physician Active Start: July 16, 2025 Dr. Jack Zuniga , DO Admitting physician Active Start: July 16, 2025 Dr. Jack Zuniga , Nurse Practitioner Active Start: July 16, 2025 Dr. Marcos Alfredo MD Nurse Practitioner Active Start: July 16, 2025 Dr. Mark Garrido MD Nurse Practitioner Active Sta rt: July 16, 2025 Dr. Nathan Bill MD Nurse Practitioner Active Start: July 16, 2025 Dr. Eleazar Valle , Nurse Practitioner Active S tart: July 16, 2025 Dr. Jack Vo MD Nurse Practitioner Active Start: July 16, 2025 Dr. Reid Murillo MD Nurse Practitioner Active Start: July 16, 2025 Dr. Harpreet Gray MD Nurse Practitioner Active Start: July 16, 2025 Dr. Cathie Cantu MD Nurse Practitioner Active Start: June Dr. Dmitri James MD Nurse Practitioner Active S tart: July 16, 2025 Dr. Ricardo Garcia MD Nurse Practitioner Active St art: July 16, 2025 Dr. Kennedy Becerra MD Nurse Practitioner Active S tart: July 16, 2025 Dr. Laura Rodas MD Nurse Practitioner Active Start: July 16, 2025 Dr. Ruth Altamirano MD Nurse Practitioner Active Start: July 16, 2025 Dr. Deepa Blanco MD Nurse Practitioner Active Start: July 16, 2025 Dr. Taran Garcia MD Nurse Practitioner Active Start: July 16, 2025 Dr. Rufus Barker MD Nurse Practitioner Active Start: July 16, 2025 Dr. Alonso Mcknight MD Nurse Practitioner Active Start: July 16, 2025 Dr. Emmett Brown , Nurse Practitioner Active Start: July 16, 2025 Dr. Tess Dietrich MD Nurse Practitioner Active St art: July 16, 2025 Dr. Coleen Tejada MD Nurse Practitioner Active Start: July 16, 2025 Dr. Ramon Mckeon , Nurse Practitioner Active Start: July 16, 2025 Dr. Davon Mcguire MD Nurse Practitioner Active Start: July 16, 2025 Dr. Catia Mercer MD Nurse Practitioner Active Start: June Dr. Mau Hoover MD Nurse Practitioner Active Start: July 16, 2025 Dr. Renee Encarnacion MD Attending physician Active Start: July 16, 2025 Dr. Gerard Santos , Nurse Practitioner Active Start: July 16, 2025 Apple Carvalho GEOSCIENTIST-C Nurse Practitioner Active Start: June Team Status: Active Member Role/Relationship Status Renita Ozuna NP, GEOSCIENTIST-C Primary care physician Active Start: July 16, 2025 Dr. Bernardo Sharif , DO Emergency Departm ent Physician Active Start: July 16, 2025 Dr. Jack Zuniga , DO Admitting physician Active Start: July 16, 2025 Dr. Jack Zuniga , DO Nurse Practitioner Active Start: July 16, 2025 Dr. Marcos Alfredo MD Nurse Practitioner Active Start: July 16, 2025 Dr. Mark Garrido MD Nurse Practitioner Active Sta rt: July 16, 2025 Dr. Nathan Bill MD Nurse Practitioner Active Start: July 16, 2025 Dr. Eleazar Valle DO Attending physician Active Start: July 16, 2025 Dr. Eleazar Valle , Nurse Practitioner Active S tart: July 16, 2025 Dr. Jack Vo MD Nurse Practitioner Active Start: July 16, 2025 Dr. Reid Murillo MD Nurse Practitioner Active Start: July 16, 2025 Dr. Harpreet Gray MD Nurse Practitioner Active Start: July 16, 2025 Dr. Cathie Cantu MD Nurse Practitioner Active Start: June Dr. Dmitri James MD Nurse Practitioner Active S tart: July 16, 2025 Dr. Ricardo Garcia MD Nurse Practitioner Active St art: July 16, 2025 Dr. Kennedy Becerra MD Nurse Practitioner Active S tart: July 16, 2025 Dr. Laura Rodas MD Nurse Practitioner Active Start: July 16, 2025 Dr. Ruth Altamirano MD Nurse Practitioner Active Start: July 16, 2025 Dr. Deepa Blanco MD Nurse Practitioner Active Start: July 16, 2025 Dr. Taran Garcia MD Nurse Practitioner Active Start: July 16, 2025 Dr. Rufus Barkre MD Nurse Practitioner Active Start: July 16, 2025 Dr. Alonso Mcknight MD Nurse Practitioner Active Start: July 16, 2025 Dr. Emmett Brown , DO Nurse Practitioner Active Start: July 16, 2025 Dr. Tess Dietrich MD Nurse Practitioner Active St art: July 16, 2025 Dr. Coleen Tejada MD Nurse Practitioner Active Start: July 16, 2025 Dr. Ramon Mckeon , DO Nurse Practitioner Active Start: July 16, 2025 Dr. Davon Mcguire MD Nurse Practitioner Active Start: July 16, 2025 Dr. Catia Mercer MD Nurse Practitioner Active Start: June Dr. Mau Hoover MD Nurse Practitioner Active Start: July 16, 2025 Dr. eGrard Santos , DO Nurse Practitioner Active Start: July 16, 2025 Team Status: Active Member Role/Relationship Status Dates Alfonso Ozuna GEOSCIENTIST, GEOSCIENTIST-C Primary care physician Active Start: July 16, 2025 Dr. Dashawn Christiansen MD Attending physician Active Start: July 16, 2025 Team Status: Active Member Role/Relationship Status Dates Alfonso Ozuna GEOSCIENTIST, GEOSCIENTIST-C Primary care physician Active Start: July 16, 2025 Dr. Bernardo Sharif , DO Emergency Departm ent Physician Active Start: July 16, 2025 Dr. Jack Zuniga , DO Admitting physician Active Start: July 16, 2025 Dr. Jack Zuniga , DO Nurse Practitioner Active Start: July 16, 2025 Dr. Marcos Alfredo MD Nurse Practitioner Active Start: July 16, 2025 Dr. Mark Garrido MD Nurse Practitioner Active Sta rt: July 16, 2025 Dr. Nathan Bill MD Nurse Practitioner Active Start: July 16, 2025 Dr. Eleazar Valle , DO Nurse Practitioner Active S tart: July 16, 2025 Dr. Jack Vo MD Nurse Practitioner Active Start: July 16, 2025 Dr. Reid Murillo MD Nurse Practitioner Active Start: July 16, 2025 Dr. Harpreet Gray MD Nurse Practitioner Active Start: July 16, 2025 Dr. Cathie Cantu MD Nurse Practitioner Active Start: June Dr. Dmitri James MD Nurse Practitioner Active S tart: July 16, 2025 Dr. Ricardo Garcia MD Nurse Practitioner Active St art: July 16, 2025 Dr. Kennedy Becerra MD Nurse Practitioner Active S tart: July 16, 2025 Dr. Laura Rodas MD Nurse Practitioner Active Start: July 16, 2025 Dr. Ruth Altamirano MD Nurse Practitioner Active Start: July 16, 2025 Dr. Deepa Blanco MD Nurse Practitioner Active Start: July 16, 2025 Dr. Taran Garcia MD Nurse Practitioner Active Start: July 16, 2025 Dr. Rufus Barker MD Nurse Practitioner Active Start: July 16, 2025 Dr. Alonso Mcknight MD Nurse Practitioner Active Start: July 16, 2025 Dr. Emmett Brown , Nurse Practitioner Active Start: July 16, 2025 Dr. Tess Dietrich MD Nurse Practitioner Active St art: July 16, 2025 Dr. Coleen Tejada MD Nurse Practitioner Active Start: July 16, 2025 Dr. Ramon Mckeon , Nurse Practitioner Active Start: July 16, 2025 Dr. Davon Mcguire MD Nurse Practitioner Active Start: July 16, 2025 Dr. Catia Mercer MD Nurse Practitioner Active Start: June Dr. Mau Hoover MD Nurse Practitioner Active Start: July 16, 2025 Dr. Gerard Santos , Attending physician Active Start: July 16, 2025 Dr. Gerard Santos , Nurse Practitioner Active Start: July 16, 2025 Team Status: Active Member Role/Relationship Status Dates Alfonso Ozuna GEOSCIENTIST, GEOSCIENTIST-C Primary care physician Active Start: July 17, 2025 Dr. Bernardo Sharif , DO Emergency Departm ent Physician Active Start: July 17, 2025 Dr. Jack Zuniga , DO Admitting physician Active Start: July 17, 2025 Dr. Jack Zuniga , DO Nurse Practitioner Active Start: July 17, 2025 Dr. Marcos Alfreod MD Nurse Practitioner Active Start: July 17, 2025 Dr. Mark Garrido MD Nurse Practitioner Active Sta rt: July 17, 2025 Dr. Nathan Bill MD Nurse Practitioner Active Start: July 17, 2025 Dr. Eleazar Valle , Nurse Practitioner Active S tart: July 17, 2025 Dr. Jack Vo MD Nurse Practitioner Active Start: July 17, 2025 Dr. Reid Murillo MD Nurse Practitioner Active Start: July 17, 2025 Dr. Harpreet Gray MD Nurse Practitioner Active Start: July 17, 2025 Dr. Cathie Cantu MD Nurse Practitioner Active Start: June Dr. Dmitri James MD Nurse Practitioner Active S tart: July 17, 2025 Dr. Ricardo Garcia MD Nurse Practitioner Active St art: July 17, 2025 Dr. Kennedy Becerra MD Nurse Practitioner Active S tart: July 17, 2025 Dr. Laura Rodas MD Nurse Practitioner Active Start: July 17, 2025 Dr. Ruth Altamirano MD Nurse Practitioner Active Start: July 17, 2025 Dr. Deepa Blanco MD Nurse Practitioner Active Start: July 17, 2025 Dr. Taran Garcia MD Nurse Practitioner Active Start: July 17, 2025 Dr. Rufus Barker MD Nurse Practitioner Active Start: July 17, 2025 Dr. Alonso Mcknight MD Nurse Practitioner Active Start: July 17, 2025 Dr. Emmett Brown DO Nurse Practitioner Active Start: July 17, 2025 Dr. Tess Dietrich MD Nurse Practitioner Active St art: July 17, 2025 Dr. Coleen Tejada MD Nurse Practitioner Active Start: July 17, 2025 Dr. Ramon Mckeon DO Nurse Practitioner Active Start: July 17, 2025 Dr. Davon Mcguire MD Nurse Practitioner Active Start: July 17, 2025 Dr. Catia Mercer MD Nurse Practitioner Active Start: June Dr. Mau Hoover MD Nurse Practitioner Active Start: July 17, 2025 Dr. Gerard Santos DO Attending physician Active Start: July 17, 2025 Dr. Gerard Santos DO Nurse Practitioner Active Start: July 17, 2025 Team Status: Active Member Role/Relationship Status Dates Alfonso Ozuna GEOSCIENTIST, GEOSCIENTIST-C Primary care physician Active Start: July 17, 2025 Dr. Bernardo Sharif , DO Emergency Departm ent Physician Active Start: July 17, 2025 Dr. Jack Zuniga , DO Admitting physician Active Start: July 17, 2025 Dr. Jack Zuniga , DO Nurse Practitioner Active Start: July 17, 2025 Dr. Marcos Alfredo MD Nurse Practitioner Active Start: July 17, 2025 Dr. Mark Garrido MD Nurse Practitioner Active Sta rt: July 17, 2025 Dr. Nathan Bill MD Nurse Practitioner Active Start: July 17, 2025 Dr. Eleazar Valle , Attending physician Active Start: July 17, 2025 Dr. Eleazar Valle , DO Nurse Practitioner Active S tart: July 17, 2025 Dr. Jack Vo MD Nurse Practitioner Active Start: July 17, 2025 Dr. Reid Murillo MD Nurse Practitioner Active Start: July 17, 2025 Dr. Harpreet Gray MD Nurse Practitioner Active Start: July 17, 2025 Dr. Cathie Cantu MD Nurse Practitioner Active Start: June Dr. Dmitri James MD Nurse Practitioner Active S tart: July 17, 2025 Dr. Ricardo Garcia MD Nurse Practitioner Active St art: July 17, 2025 Dr. Kennedy Becerra MD Nurse Practitioner Active S tart: July 17, 2025 Dr. Laura Rodas MD Nurse Practitioner Active Start: July 17, 2025 Dr. Ruth Altamirano MD Nurse Practitioner Active Start: July 17, 2025 Dr. Deepa Blanco MD Nurse Practitioner Active Start: July 17, 2025 Dr. Taran Garcia MD Nurse Practitioner Active Start: July 17, 2025 Dr. Rufus Barker MD Nurse Practitioner Active Start: July 17, 2025 Dr. Alonso Mcknight MD Nurse Practitioner Active Start: July 17, 2025 Dr. Emmett Brown , Nurse Practitioner Active Start: July 17, 2025 Dr. Tess Dietrich MD Nurse Practitioner Active St art: July 17, 2025 Dr. Coleen Tejada MD Nurse Practitioner Active Start: July 17, 2025 Dr. Ramon Mckeon , Nurse Practitioner Active Start: July 17, 2025 Dr. Davon Mcguire MD Nurse Practitioner Active Start: July 17, 2025 Dr. Catia Mercer MD Nurse Practitioner Active Start: June Dr. Mau Hoover MD Nurse Practitioner Active Start: July 17, 2025 Dr. Gerard Santos , DO Nurse Practitioner Active Start: July 17, 2025 Team Status: Active Member Role/Relationship Status Renita Ozuna GEOSCIENTIST, GEOSCIENTIST-C Primary care physician Active Start: July 18, 2025 Dr. Bernardo Sharif , DO Emergency Departm ent Physician Active Start: July 18, 2025 Dr. Jack Zuniga , DO Admitting physician Active Start: July 18, 2025 Dr. Jack Zuniga , DO Nurse Practitioner Active Start: July 18, 2025 Dr. Marcos Alfredo MD Nurse Practitioner Active Start: July 18, 2025 Dr. Mark Garrido MD Nurse Practitioner Active Sta rt: July 18, 2025 Dr. Nathan Bill MD Nurse Practitioner Active Start: July 18, 2025 Dr. Eleazar Valle , Attending physician Active Start: July 18, 2025 Dr. Eleazar Valle , Nurse Practitioner Active S tart: July 18, 2025 Dr. Jack Vo MD Nurse Practitioner Active Start: July 18, 2025 Dr. Reid Murillo MD Nurse Practitioner Active Start: July 18, 2025 Dr. Harpreet Gray MD Nurse Practitioner Active Start: July 18, 2025 Dr. Cathie Cantu MD Nurse Practitioner Active Start: June Dr. Dmitri James MD Nurse Practitioner Active S tart: July 18, 2025 Dr. Ricardo Garcia MD Nurse Practitioner Active St art: July 18, 2025 Dr. Kennedy Becerra MD Nurse Practitioner Active S tart: July 18, 2025 Dr. Laura Rodas MD Nurse Practitioner Active Start: July 18, 2025 Dr. Ruth Altamirano MD Nurse Practitioner Active Start: July 18, 2025 Dr. Deepa Blanco MD Nurse Practitioner Active Start: July 18, 2025 Dr. Taran Garcia MD Nurse Practitioner Active Start: July 18, 2025 Dr. Rufus Barker MD Nurse Practitioner Active Start: July 18, 2025 Dr. Alonso Mcknight MD Nurse Practitioner Active Start: July 18, 2025 Dr. Emmett Brown , DO Nurse Practitioner Active Start: July 18, 2025 Dr. Tess Dietrich MD Nurse Practitioner Active St art: July 18, 2025 Dr. Coleen Tejada MD Nurse Practitioner Active Start: July 18, 2025 Dr. Ramon Mckeon , DO Nurse Practitioner Active Start: July 18, 2025 Dr. Davon Mcguire MD Nurse Practitioner Active Start: July 18, 2025 Dr. Catia Mercer MD Nurse Practitioner Active Start: June Dr. Mau Hoover MD Nurse Practitioner Active Start: July 18, 2025 Dr. Gerard Santos , DO Nurse Practitioner Active Start: July 18, 2025 Team Status: Active Member Role/Relationship Status Dates Alfonso Ozuna GEOSCIENTIST, GEOSCIENTIST-C Primary care physician Active Start: July 18, 2025 Dr. Bernardo Sharif , DO Emergency Departm ent Physician Active Start: July 18, 2025 Dr. Jack Zuniga , DO Admitting physician Active Start: July 18, 2025 Dr. Jack Zuniga , DO Nurse Practitioner Active Start: July 18, 2025 Dr. Marcos Alfredo MD Nurse Practitioner Active Start: July 18, 2025 Dr. Mark Garrido MD Nurse Practitioner Active Sta rt: July 18, 2025 Dr. Nathan Bill MD Nurse Practitioner Active Start: July 18, 2025 Dr. Eleazar Valle , DO Nurse Practitioner Active S tart: July 18, 2025 Dr. Jack Vo MD Nurse Practitioner Active Start: July 18, 2025 Dr. Reid Murillo MD Nurse Practitioner Active Start: July 18, 2025 Dr. Harpreet Gray MD Nurse Practitioner Active Start: July 18, 2025 Dr. Cathie Cantu MD Nurse Practitioner Active Start: June Dr. Dmitri James MD Nurse Practitioner Active S tart: July 18, 2025 Dr. Ricardo Garcia MD Nurse Practitioner Active St art: July 18, 2025 Dr. Kennedy Becerra MD Nurse Practitioner Active S tart: July 18, 2025 Dr. Laura Rodas MD Nurse Practitioner Active Start: July 18, 2025 Dr. Ruth Altamirano MD Nurse Practitioner Active Start: July 18, 2025 Dr. Deepa Blanco MD Nurse Practitioner Active Start: July 18, 2025 Dr. Taran Garcia MD Nurse Practitioner Active Start: July 18, 2025 Dr. Rufus Barker MD Nurse Practitioner Active Start: July 18, 2025 Dr. Alonso Mcknight MD Nurse Practitioner Active Start: July 18, 2025 Dr. Emmett Brown , Nurse Practitioner Active Start: July 18, 2025 Dr. Tess Dietrich MD Nurse Practitioner Active St art: July 18, 2025 Dr. Coleen Tejada MD Nurse Practitioner Active Start: July 18, 2025 Dr. Ramon Mckeon , Nurse Practitioner Active Start: July 18, 2025 Dr. Davon Mcguire MD Nurse Practitioner Active Start: July 18, 2025 Dr. Catia Mercer MD Nurse Practitioner Active Start: June Dr. Mau Hoover MD Nurse Practitioner Active Start: July 18, 2025 Dr. Gerard Santos , Attending physician Active Start: July 18, 2025 Dr. Gerard Santos , Nurse Practitioner Active Start: July 18, 2025 Team Status: Active Member Role/Relationship Status Renita Ozuna GEOSCIENTIST, GEOSCIENTIST-C Primary care physician Active Start: July 19, 2025 Dr. Bernardo Sharif , DO Emergency Departm ent Physician Active Start: July 19, 2025 Dr. Jack Zuniga , DO Admitting physician Active Start: July 19, 2025 Dr. Jack Zuniga , Nurse Practitioner Active Start: July 19, 2025 Dr. Marcos Alfredo MD Nurse Practitioner Active Start: July 19, 2025 Dr. Mark Garrido MD Nurse Practitioner Active Sta rt: July 19, 2025 Dr. Nathan Bill MD Nurse Practitioner Active Start: July 19, 2025 Dr. Eleazar Valle DO Nurse Practitioner Active S tart: July 19, 2025 Dr. Jack Vo MD Nurse Practitioner Active Start: July 19, 2025 Dr. Reid Murillo MD Nurse Practitioner Active Start: July 19, 2025 Dr. Harpreet Gray MD Nurse Practitioner Active Start: July 19, 2025 Dr. Cathie Cantu MD Nurse Practitioner Active Start: June Dr. Dmitri James MD Nurse Practitioner Active S tart: July 19, 2025 Dr. Ricardo Garcia MD Nurse Practitioner Active St art: July 19, 2025 Dr. Kennedy Becerra MD Nurse Practitioner Active S tart: July 19, 2025 Dr. Laura Rodas MD Nurse Practitioner Active Start: July 19, 2025 Dr. Ruth Altamirano MD Nurse Practitioner Active Start: July 19, 2025 Dr. Deepa Blanco MD Nurse Practitioner Active Start: July 19, 2025 Dr. Taran Garcia MD Nurse Practitioner Active Start: July 19, 2025 Dr. Rufus Barker MD Nurse Practitioner Active Start: July 19, 2025 Dr. Alonso Mcknight MD Nurse Practitioner Active Start: July 19, 2025 Dr. Emmett Brown , Nurse Practitioner Active Start: July 19, 2025 Dr. Tess Dietrich MD Nurse Practitioner Active St art: July 19, 2025 Dr. Coleen Tejada MD Nurse Practitioner Active Start: July 19, 2025 Dr. Ramon Mckeon , Nurse Practitioner Active Start: July 19, 2025 Dr. Davon Mcguire MD Nurse Practitioner Active Start: July 19, 2025 Dr. Catia Mercer MD Nurse Practitioner Active Start: June Dr. Mau Hoover MD Nurse Practitioner Active Start: July 19, 2025 Dr. Gerard Santos , Attending physician Active Start: July 19, 2025 Dr. Gerard Santos , Nurse Practitioner Active Start: July 19, 2025 Team Status: Active Member Role/Relationship Status Dates Alfonso Ozuna NP, GEOSCIENTIST-C Primary care physician Active Start: July 20, 2025 Dr. Bernardo Sharif , Emergency Departm ent Physician Active Start: July 20, 2025 Dr. Jack Zuniga , DO Admitting physician Active Start: July 20, 2025 Dr. Jack Zuniga , Nurse Practitioner Active Start: July 20, 2025 Dr. Marcos Alfredo MD Nurse Practitioner Active Start: July 20, 2025 Dr. Mark Garrido MD Nurse Practitioner Active Sta rt: July 20, 2025 Dr. Nathan Bill MD Nurse Practitioner Active Start: July 20, 2025 Dr. Eleazar Valle , Nurse Practitioner Active S tart: July 20, 2025 Dr. Jack Vo MD Nurse Practitioner Active Start: July 20, 2025 Dr. Reid Murillo MD Nurse Practitioner Active Start: July 20, 2025 Dr. Harpreet Gray MD Nurse Practitioner Active Start: July 20, 2025 Dr. Cathie Cantu MD Nurse Practitioner Active Start: June Dr. Dmitri James MD Nurse Practitioner Active S tart: July 20, 2025 Dr. Ricardo Garcia MD Nurse Practitioner Active St art: July 20, 2025 Dr. Kennedy Becerra MD Nurse Practitioner Active S tart: July 20, 2025 Dr. Laura Rodas MD Nurse Practitioner Active Start: July 20, 2025 Dr. Ruth Altamirano MD Nurse Practitioner Active Start: July 20, 2025 Dr. Deepa Blanco MD Nurse Practitioner Active Start: July 20, 2025 Dr. Taran Garcia MD Nurse Practitioner Active Start: July 20, 2025 Dr. Rufus Barker MD Nurse Practitioner Active Start: July 20, 2025 Dr. Alonso Mcknight MD Nurse Practitioner Active Start: July 20, 2025 Dr. Emmett Brown , Nurse Practitioner Active Start: July 20, 2025 Dr. Tess Dietrich MD Nurse Practitioner Active St art: July 20, 2025 Dr. Coleen Tejada MD Nurse Practitioner Active Start: July 20, 2025 Dr. Ramon Mckeon , Nurse Practitioner Active Start: July 20, 2025 Dr. Davon Mcguire MD Nurse Practitioner Active Start: July 20, 2025 Dr. Catia Mercer MD Nurse Practitioner Active Start: June Dr. Mau Hoover MD Nurse Practitioner Active Start: July 20, 2025 Dr. Gerard Santos , Attending physician Active Start: July 20, 2025 Dr. Gerard Santos , DO Nurse Practitioner Active Start: July 20, 2025 Team Status: Active Member Role/Relationship Status Dates Alfonso Ozuna GEOSCIENTIST, GEOSCIENTIST-C Primary care physician Active Start: July 21, 2025 Dr. Bernardo Sharif , DO Emergency Departm ent Physician Active Start: July 21, 2025 Dr. Jack Zuniga , DO Admitting physician Active Start: July 21, 2025 Dr. Jack Zuniga , DO Nurse Practitioner Active Start: July 21, 2025 Dr. Marcos Alfredo MD Nurse Practitioner Active Start: July 21, 2025 Dr. Mark Garrido MD Nurse Practitioner Active Sta rt: July 21, 2025 Dr. Nathan Bill MD Nurse Practitioner Active Start: July 21, 2025 Dr. Eleazar Valle , Attending physician Active Start: July 21, 2025 Dr. Eleazar Valle , Nurse Practitioner Active S tart: July 21, 2025 Dr. Jack Vo MD Nurse Practitioner Active Start: July 21, 2025 Dr. Reid Murillo MD Nurse Practitioner Active Start: July 21, 2025 Dr. Harpreet Gray MD Nurse Practitioner Active Start: July 21, 2025 Dr. Cathie Cantu MD Nurse Practitioner Active Start: June Dr. Dmitri James MD Nurse Practitioner Active S tart: July 21, 2025 Dr. Ricardo Garcia MD Nurse Practitioner Active St art: July 21, 2025 Dr. Kennedy Becerra MD Nurse Practitioner Active S tart: July 21, 2025 Dr. Laura Rodas MD Nurse Practitioner Active Start: July 21, 2025 Dr. Ruth Altamirano MD Nurse Practitioner Active Start: July 21, 2025 Dr. Deepa Blanco MD Nurse Practitioner Active Start: July 21, 2025 Dr. Taran Garcia MD Nurse Practitioner Active Start: July 21, 2025 Dr. Rufus Barker MD Nurse Practitioner Active Start: July 21, 2025 Dr. Alonso Mcknight MD Nurse Practitioner Active Start: July 21, 2025 Dr. Emmett Brown , Nurse Practitioner Active Start: July 21, 2025 Dr. Tess Dietrich MD Nurse Practitioner Active St art: July 21, 2025 Dr. Coleen Tejada MD Nurse Practitioner Active Start: July 21, 2025 Dr. Ramon Mckeon , DO Nurse Practitioner Active Start: July 21, 2025 Dr. Davon Mcguire MD Nurse Practitioner Active Start: July 21, 2025 Dr. Catia Mercer MD Nurse Practitioner Active Start: June Dr. Mau Hoover MD Nurse Practitioner Active Start: July 21, 2025 Dr. Renee Encarnacion MD Nurse Practitioner Active Start: July 21, 2025 Dr. Gerard Santos , DO Nurse Practitioner Active Start: July 21, 2025 Team Status: Active Member Role/Relationship Status Dates Alfonso Ozuna GEOSCIENTIST, GEOSCIENTIST-C Primary care physician Active Start: July 21, 2025 Dr. Bernardo Sharif , DO Emergency Departm ent Physician Active Start: July 21, 2025 Dr. Jack Zuniga , DO Admitting physician Active Start: July 21, 2025 Dr. Jack Zuniga , DO Nurse Practitioner Active Start: July 21, 2025 Dr. Marcos Alfredo MD Nurse Practitioner Active Start: July 21, 2025 Dr. Mark Garrido MD Nurse Practitioner Active Sta rt: July 21, 2025 Dr. Nathan Bill MD Nurse Practitioner Active Start: July 21, 2025 Dr. Eleazar Valle , Nurse Practitioner Active S tart: July 21, 2025 Dr. Jack Vo MD Nurse Practitioner Active Start: July 21, 2025 Dr. Reid Murillo MD Nurse Practitioner Active Start: July 21, 2025 Dr. Harpreet Gray MD Nurse Practitioner Active Start: July 21, 2025 Dr. Cathie Cantu MD Nurse Practitioner Active Start: June Dr. Dmitri James MD Nurse Practitioner Active S tart: July 21, 2025 Dr. Ricardo Garcia MD Nurse Practitioner Active St art: July 21, 2025 Dr. Kennedy Becerra MD Nurse Practitioner Active S tart: July 21, 2025 Dr. Laura Rodas MD Nurse Practitioner Active Start: July 21, 2025 Dr. Ruth Altamirano MD Nurse Practitioner Active Start: July 21, 2025 Dr. Deepa Blanco MD Nurse Practitioner Active Start: July 21, 2025 Dr. Taran Garcia MD Nurse Practitioner Active Start: July 21, 2025 Dr. Rufus Barker MD Nurse Practitioner Active Start: July 21, 2025 Dr. Alonso Mcknight MD Nurse Practitioner Active Start: July 21, 2025 Dr. Emmett Brown , Nurse Practitioner Active Start: July 21, 2025 Dr. Tess Dietrich MD Nurse Practitioner Active St art: July 21, 2025 Dr. Coleen Tejada MD Nurse Practitioner Active Start: July 21, 2025 Dr. Ramon Mckeon , DO Nurse Practitioner Active Start: July 21, 2025 Dr. Davon Mcguire MD Nurse Practitioner Active Start: July 21, 2025 Dr. Catia Mercer MD Nurse Practitioner Active Start: June Dr. Mau Hoover MD Nurse Practitioner Active Start: July 21, 2025 Dr. Renee Encarnacion MD Attending physician Active Start: July 21, 2025 Dr. Renee Encarnacion MD Nurse Practitioner Active Start: July 21, 2025 Dr. Gerard Santos , Nurse Practitioner Active Start: July 21, 2025 Team Status: Active Member Role/Relationship Status Renita Ozuna GEOSCIENTIST, GEOSCIENTIST-C Primary care physician Active Start: July 22, 2025 Dr. Bernardo Sharif , Emergency Departm ent Physician Active Start: July 22, 2025 Dr. Jack Zuniga , Admitting physician Active Start: July 22, 2025 Dr. Jack Zuniga , Nurse Practitioner Active Start: July 22, 2025 Dr. Marcos Alfredo MD Nurse Practitioner Active Start: July 22, 2025 Dr. Mark Garrido MD Nurse Practitioner Active Sta rt: July 22, 2025 Dr. Nathan Bill MD Nurse Practitioner Active Start: July 22, 2025 Dr. Eleazar Valle , Attending physician Active Start: July 22, 2025 Dr. Eleazar Valle , Nurse Practitioner Active S tart: July 22, 2025 Dr. Jack Vo MD Nurse Practitioner Active Start: July 22, 2025 Dr. Reid Murillo MD Nurse Practitioner Active Start: July 22, 2025 Dr. Haprreet Gray MD Nurse Practitioner Active Start: July 22, 2025 Dr. Cathie Cantu MD Nurse Practitioner Active Start: June Dr. Dmitri James MD Nurse Practitioner Active S tart: July 22, 2025 Dr. Ricardo Garcia MD Nurse Practitioner Active St art: July 22, 2025 Dr. Kennedy Becerra MD Nurse Practitioner Active S tart: July 22, 2025 Dr. Laura Rodas MD Nurse Practitioner Active Start: July 22, 2025 Dr. Ruth Altamirano MD Nurse Practitioner Active Start: July 22, 2025 Dr. Deepa Blanco MD Nurse Practitioner Active Start: July 22, 2025 Dr. Taran Garcia MD Nurse Practitioner Active Start: July 22, 2025 Dr. Rufus Barker MD Nurse Practitioner Active Start: July 22, 2025 Dr. Alonso Mcknight MD Nurse Practitioner Active Start: July 22, 2025 Dr. Emmett Brown , Nurse Practitioner Active Start: July 22, 2025 Dr. Tess Dietrich MD Nurse Practitioner Active St art: July 22, 2025 Dr. Coleen Tejada MD Nurse Practitioner Active Start: July 22, 2025 Dr. Ramon Mckeon , Nurse Practitioner Active Start: July 22, 2025 Dr. Davon Mcguire MD Nurse Practitioner Active Start: July 22, 2025 Dr. Catia Mercer MD Nurse Practitioner Active Start: June Dr. Mau Hoover MD Nurse Practitioner Active Start: July 22, 2025 Dr. Renee Encarnacion MD Nurse Practitioner Active Start: July 22, 2025 Dr. Gerard Santos , Nurse Practitioner Active Start: July 22, 2025 Apple Carvalho NP-C Nurse Practitioner Active Start: June Team Status: Active Member Role/Relationship Status Dates Alfonso Ozuna NP, GEOSCIENTIST-C Primary care physician Active Start: July 22, 2025 Dr. Bernardo Sharif , DO Emergency Departm ent Physician Active Start: July 22, 2025 Dr. Jack Zuniga , DO Admitting physician Active Start: July 22, 2025 Dr. Jack Zuniga , DO Nurse Practitioner Active Start: July 22, 2025 Dr. Marcos Alfredo MD Nurse Practitioner Active Start: July 22, 2025 Dr. Mark Garrido MD Nurse Practitioner Active Sta rt: July 22, 2025 Dr. Nathan Bill MD Nurse Practitioner Active Start: July 22, 2025 Dr. Eleazar Valle , Nurse Practitioner Active S tart: July 22, 2025 Dr. Jack Vo MD Nurse Practitioner Active Start: July 22, 2025 Dr. Reid Murillo MD Nurse Practitioner Active Start: July 22, 2025 Dr. Harpreet Gray MD Nurse Practitioner Active Start: July 22, 2025 Dr. Cathie Cantu MD Nurse Practitioner Active Start: June Dr. Dmitri James MD Nurse Practitioner Active S tart: July 22, 2025 Dr. Ricardo Garcia MD Nurse Practitioner Active St art: July 22, 2025 Dr. Kennedy Becerra MD Nurse Practitioner Active S tart: July 22, 2025 Dr. Laura Rodas MD Nurse Practitioner Active Start: July 22, 2025 Dr. Ruth Altamirano MD Nurse Practitioner Active Start: July 22, 2025 Dr. Deepa Blanco MD Nurse Practitioner Active Start: July 22, 2025 Dr. Taran Garcia MD Nurse Practitioner Active Start: July 22, 2025 Dr. Rufus Barker MD Nurse Practitioner Active Start: July 22, 2025 Dr. Alonso Mcknight MD Nurse Practitioner Active Start: July 22, 2025 Dr. Emmett Brown , Nurse Practitioner Active Start: July 22, 2025 Dr. Tess Dietrich MD Nurse Practitioner Active St art: July 22, 2025 Dr. Coleen Tejada MD Nurse Practitioner Active Start: July 22, 2025 Dr. Ramon Mckeon , Nurse Practitioner Active Start: July 22, 2025 Dr. Davon Mcguire MD Nurse Practitioner Active Start: July 22, 2025 Dr. Catia Mercer MD Nurse Practitioner Active Start: June Dr. Mau Hoover MD Nurse Practitioner Active Start: July 22, 2025 Dr. Renee Encarnacion MD Attending physician Active Start: July 22, 2025 Dr. Renee Encarnacion MD Nurse Practitioner Active Start: July 22, 2025 Dr. Gerard Santos , Nurse Practitioner Active Start: July 22, 2025 Apple Carvalho NP-C Nurse Practitioner Active Start: June Team Status: Active Member Role/Relationship Status Dates Alfonso Ozuna NP, GEOSCIENTIST-C Primary care physician Active Start: July 22, 2025 Dr. Bernadro Sharif , DO Emergency Departm ent Physician Active Start: July 22, 2025 Dr. Jack Zuniga , Admitting physician Active Start: July 22, 2025 Dr. Jack Zuniga , Nurse Practitioner Active Start: July 22, 2025 Dr. Marcos Alfredo MD Nurse Practitioner Active Start: July 22, 2025 Dr. Mark Garrido MD Nurse Practitioner Active Sta rt: July 22, 2025 Dr. Nathan Bill MD Nurse Practitioner Active Start: July 22, 2025 Dr. Eleazar Valle , Nurse Practitioner Active S tart: July 22, 2025 Dr. Jack Vo MD Nurse Practitioner Active Start: July 22, 2025 Dr. Reid Murillo MD Nurse Practitioner Active Start: July 22, 2025 Dr. Harpreet Gray MD Nurse Practitioner Active Start: July 22, 2025 Dr. Cathie Cantu MD Nurse Practitioner Active Start: June Dr. Dmitri James MD Nurse Practitioner Active S tart: July 22, 2025 Dr. Ricardo Garcia MD Nurse Practitioner Active St art: July 22, 2025 Dr. Kennedy Becerra MD Nurse Practitioner Active S tart: July 22, 2025 Dr. Laura Rodas MD Nurse Practitioner Active Start: July 22, 2025 Dr. Ruth Altamirano MD Nurse Practitioner Active Start: July 22, 2025 Dr. Deepa Blanco MD Nurse Practitioner Active Start: July 22, 2025 Dr. Taran Garcia MD Nurse Practitioner Active Start: July 22, 2025 Dr. Rufus Barker MD Nurse Practitioner Active Start: July 22, 2025 Dr. Alonso Mcknight MD Nurse Practitioner Active Start: July 22, 2025 Dr. Emmett Brown , DO Nurse Practitioner Active Start: July 22, 2025 Dr. Tess Dietrich MD Nurse Practitioner Active St art: July 22, 2025 Dr. Coleen Tejada MD Nurse Practitioner Active Start: July 22, 2025 Dr. Ramon Mckeon , DO Nurse Practitioner Active Start: July 22, 2025 Dr. Davon Mcguire MD Nurse Practitioner Active Start: July 22, 2025 Dr. Catia Mercer MD Nurse Practitioner Active Start: June Dr. Mau Hoover MD Nurse Practitioner Active Start: July 22, 2025 Dr. Renee Encarnacion MD Nurse Practitioner Active Start: July 22, 2025 Dr. Gerard Santos , Nurse Practitioner Active Start: July 22, 2025 Apple Carvalho GEOSCIENTIST-C Attending physician Active Start: June Apple Carvalho NP-C Nurse Practitioner Active Start: June Team Status: Inactive Member Role/Relationship Status Renita Ozuna NP, GEOSCIENTIST-C Primary care physician Active Start: July 16, 2025 End: July 26, 2025 Dr. Bernardo Sharif , DO Emergency Departm ent Physician Active Start: July 16, 2025 End: July 26, 2025 Dr. Jack Zuniga , DO Admitting physician Active Start: July 16, 2025 End: July 26, 2025 Dr. Jack Zuniga , DO Nurse Practitioner Active Start: July 16, 2025 End: July 26, 2025 Dr. Renee Encarnacion MD Attending physician Active Start: July 16, 2025 End: July 26, 2025 Dr. Gerard Santos , Nurse Practitioner Active Start: July 16, 2025 End: July 26, 2025 Dr. Gregory Galvan MD Nurse Practitioner Active Start: July 16, 2025 End: July 26, 2025 Dr. Danish Crawford , Nurse Practitioner Active Start: July 16, 2025 End: July 26, 2025 Earline Camargo , GEOSCIENTIST-C Nurse Practitioner Active S tart: July 16, 2025 End: July 26, 2025 Analy Davis GEOSCIENTIST-C Nurse Practitioner Active Start: July 16, 2025 End: July 26, 2025 SHEILA Ellington Nurse Practitioner Active Start: July 16, 2025 End: July 26, 2025 Apple Carvalho GEOSCIENTIST-C Nurse Practitioner Active Start: June End: July 26, 2025 Dr. Marcos Alfredo MD Nurse Practitioner Active Start: July 16, 2025 End: July 26, 2025 Dr. Mark Garrido MD Nurse Practitioner Active Sta rt: July 16, 2025 End: July 26, 2025 Dr. Nathan Bill MD Nurse Practitioner Active Start: July 16, 2025 End: July 26, 2025 Dr. Eleazar Valle DO Nurse Practitioner Active S tart: July 16, 2025 End: July 26, 2025 Dr. Jack Vo MD Nurse Practitioner Active Start: July 16, 2025 End: July 26, 2025 Dr. Reid Murillo MD Nurse Practitioner Active Start: July 16, 2025 End: July 26, 2025 Dr. Harpreet Gray MD Nurse Practitioner Active Start: July 16, 2025 End: July 26, 2025 Dr. Cathie Cantu MD Nurse Practitioner Active Start: June End: July 26, 2025 Dr. Dmitri James MD Nurse Practitioner Active S tart: July 16, 2025 End: July 26, 2025 Dr. Ricardo Garcia MD Nurse Practitioner Active St art: July 16, 2025 End: July 26, 2025 Dr. Kennedy Becerra MD Nurse Practitioner Active S tart: July 16, 2025 End: July 26, 2025 Dr. Laura Rodas MD Nurse Practitioner Active Start: July 16, 2025 End: July 26, 2025 Dr. Ruth Altamirano MD Nurse Practitioner Active Start: July 16, 2025 End: July 26, 2025 Dr. Deepa Blanco MD Nurse Practitioner Active Start: July 16, 2025 End: July 26, 2025 Dr. Taran Garcia MD Nurse Practitioner Active Start: July 16, 2025 End: July 26, 2025 Dr. Rufus Barker MD Nurse Practitioner Active Start: July 16, 2025 End: July 26, 2025 Dr. Alonso Mcknight MD Nurse Practitioner Active Start: July 16, 2025 End: July 26, 2025 Dr. Emmett Brown , Nurse Practitioner Active Start: July 16, 2025 End: July 26, 2025 Dr. Tess Dietrich MD Nurse Practitioner Active St art: July 16, 2025 End: July 26, 2025 Dr. Coleen Tejada MD Nurse Practitioner Active Start: July 16, 2025 End: July 26, 2025 Dr. Ramon Mckeon , Nurse Practitioner Active Start: July 16, 2025 End: July 26, 2025 Dr. Davon Mcguire MD Nurse Practitioner Active Start: July 16, 2025 End: July 26, 2025 Dr. Catia Mercer MD Nurse Practitioner Active Start: June End: July 26, 2025 Dr. Mau Hoover MD Nurse Practitioner Active Start: July 16, 2025 End: July 26, 2025 Dr. Kendall Doran MD Nurse Practitioner Active Start: June End: July 26, 2025 Team Status: Active Member Role/Relationship Status Renita Ozuna GEOSCIENTIST, GEOSCIENTIST-C Primary care physician Active Start: July 16, 2025 Dr. Bernardo Sahrif , Emergency Departm ent Physician Active Start: July 16, 2025 Dr. Jack Zuniga , Admitting physician Active Start: July 16, 2025 Dr. Jack Zuniga , Nurse Practitioner Active Start: July 16, 2025 Dr. Marcos Alfredo MD Nurse Practitioner Active Start: July 16, 2025 Dr. Mark Garrido MD Nurse Practitioner Active Sta rt: July 16, 2025 Dr. Nathan Bill MD Nurse Practitioner Active Start: July 16, 2025 Dr. Eleazar Valle , Attending physician Active Start: July 16, 2025 Dr. Eleazar Valle DO Nurse Practitioner Active S tart: July 16, 2025 Dr. Jack Vo MD Nurse Practitioner Active Start: July 16, 2025 Dr. Reid Murillo MD Nurse Practitioner Active Start: July 16, 2025 Dr. Harpreet Gray MD Nurse Practitioner Active Start: July 16, 2025 Dr. Cathie Cantu MD Nurse Practitioner Active Start: June Dr. Dmitri James MD Nurse Practitioner Active S tart: July 16, 2025 Dr. Ricardo Garcia MD Nurse Practitioner Active St art: July 16, 2025 Dr. Kennedy Becerra MD Nurse Practitioner Active S tart: July 16, 2025 Dr. Laura Rodas MD Nurse Practitioner Active Start: July 16, 2025 Dr. Ruth Altamirano MD Nurse Practitioner Active Start: July 16, 2025 Dr. Deepa Blanco MD Nurse Practitioner Active Start: July 16, 2025 Dr. Taran Garcia MD Nurse Practitioner Active Start: July 16, 2025 Dr. Rufus Barker MD Nurse Practitioner Active Start: July 16, 2025 Dr. Alonso Mcknight MD Nurse Practitioner Active Start: July 16, 2025 Dr. Emmett Brown DO Nurse Practitioner Active Start: July 16, 2025 Dr. Tess Dietrich MD Nurse Practitioner Active St art: July 16, 2025 Dr. Coleen Tejada MD Nurse Practitioner Active Start: July 16, 2025 Dr. Ramon Mckeon DO Nurse Practitioner Active Start: July 16, 2025 Dr. Davon Mcguire MD Nurse Practitioner Active Start: July 16, 2025 Dr. Catia Mercer MD Nurse Practitioner Active Start: June Dr. Mau Hoover MD Nurse Practitioner Active Start: July 16, 2025 Dr. Gerard Santos DO Referring Provider Active Start: July 16, 2025 Dr. Gerard Santos DO Nurse Practitioner Active Start: July 16, 2025 Team Status: Active Member Role/Relationship Status Renita Ozuna GEOSCIENTIST, GEOSCIENTIST-C Primary care physician Active Start: July 17, 2025 Dr. Bernardo Sharif , DO Emergency Departm ent Physician Active Start: July 17, 2025 Dr. Jack Zuniga , DO Admitting physician Active Start: July 17, 2025 Dr. Jack Zuniga , DO Nurse Practitioner Active Start: July 17, 2025 Dr. Marcos Alfredo MD Nurse Practitioner Active Start: July 17, 2025 Dr. Mark Garrido MD Nurse Practitioner Active Sta rt: July 17, 2025 Dr. Nathan Bill MD Nurse Practitioner Active Start: July 17, 2025 Dr. Eleazar Valle , Attending physician Active Start: July 17, 2025 Dr. Eleazar Valle , Nurse Practitioner Active S tart: July 17, 2025 Dr. Jack Vo MD Nurse Practitioner Active Start: July 17, 2025 Dr. Reid Murillo MD Nurse Practitioner Active Start: July 17, 2025 Dr. Harpreet Gray MD Nurse Practitioner Active Start: July 17, 2025 Dr. Cathie Cantu MD Nurse Practitioner Active Start: June Dr. Dmitri James MD Nurse Practitioner Active S tart: July 17, 2025 Dr. Ricardo Garcia MD Nurse Practitioner Active St art: July 17, 2025 Dr. Kennedy Becerra MD Nurse Practitioner Active S tart: July 17, 2025 Dr. Laura Rodas MD Nurse Practitioner Active Start: July 17, 2025 Dr. Ruth Altamirano MD Nurse Practitioner Active Start: July 17, 2025 Dr. Deepa Blanco MD Nurse Practitioner Active Start: July 17, 2025 Dr. Taran Garcia MD Nurse Practitioner Active Start: July 17, 2025 Dr. Rufus Barker MD Nurse Practitioner Active Start: July 17, 2025 Dr. Alonso Mcknight MD Nurse Practitioner Active Start: July 17, 2025 Dr. Emmett Brown , Nurse Practitioner Active Start: July 17, 2025 Dr. Tess Dietrich MD Nurse Practitioner Active St art: July 17, 2025 Dr. Coleen Tejada MD Nurse Practitioner Active Start: July 17, 2025 Dr. Ramon Mckeon , Nurse Practitioner Active Start: July 17, 2025 Dr. Davon Mcguire MD Nurse Practitioner Active Start: July 17, 2025 Dr. Catia Mercer MD Nurse Practitioner Active Start: June Dr. Mau Hoover MD Nurse Practitioner Active Start: July 17, 2025 Dr. Gerard Santos , Referring Provider Active Start: July 17, 2025 Dr. Gerard Santos , Nurse Practitioner Active Start: July 17, 2025 Team Status: Active Member Role/Relationship Status Dates Alfonso Ozuna GEOSCIENTIST, GEOSCIENTIST-C Primary care physician Active Start: July 18, 2025 Dr. Bernardo Sharif , Emergency Departm ent Physician Active Start: July 18, 2025 Dr. Jack Zuniga DO Admitting physician Active Start: July 18, 2025 Dr. Jack Zuniga , Nurse Practitioner Active Start: July 18, 2025 Dr. Marcos Alfredo MD Nurse Practitioner Active Start: July 18, 2025 Dr. Mark Garrido MD Nurse Practitioner Active Sta rt: July 18, 2025 Dr. Nathan Bill MD Nurse Practitioner Active Start: July 18, 2025 Dr. Eleazar Valle DO Attending physician Active Start: July 18, 2025 Dr. Eleazar Valle DO Nurse Practitioner Active S tart: July 18, 2025 Dr. Jack Vo MD Nurse Practitioner Active Start: July 18, 2025 Dr. Reid Murillo MD Nurse Practitioner Active Start: July 18, 2025 Dr. Harpreet Gray MD Nurse Practitioner Active Start: July 18, 2025 Dr. Cathie Cantu MD Nurse Practitioner Active Start: June Dr. Dmitri James MD Nurse Practitioner Active S tart: July 18, 2025 Dr. Ricardo Garcia MD Nurse Practitioner Active St art: July 18, 2025 Dr. Kennedy Becerra MD Nurse Practitioner Active S tart: July 18, 2025 Dr. Laura Rodas MD Nurse Practitioner Active Start: July 18, 2025 Dr. Ruth Altamirano MD Nurse Practitioner Active Start: July 18, 2025 Dr. Deepa Blanco MD Nurse Practitioner Active Start: July 18, 2025 Dr. Taran Garcia MD Nurse Practitioner Active Start: July 18, 2025 Dr. Rufus Barker MD Nurse Practitioner Active Start: July 18, 2025 Dr. Alonso Mcknight MD Nurse Practitioner Active Start: July 18, 2025 Dr. Emmett Brown , Nurse Practitioner Active Start: July 18, 2025 Dr. Tess Dietrich MD Nurse Practitioner Active St art: July 18, 2025 Dr. Coleen Tejada MD Nurse Practitioner Active Start: July 18, 2025 Dr. Ramon Mckeon , Nurse Practitioner Active Start: July 18, 2025 Dr. Davon Mcguire MD Nurse Practitioner Active Start: July 18, 2025 Dr. Catia Mercer MD Nurse Practitioner Active Start: June Dr. Mau Hoover MD Nurse Practitioner Active Start: July 18, 2025 Dr. Gerard Santos , Referring Provider Active Start: July 18, 2025 Dr. Gerard Santos DO Nurse Practitioner Active Start: July 18, 2025 Team Status: Active Member Role/Relationship Status Dates Alfonso Ozuna GEOSCIENTIST, GEOSCIENTIST-C Primary care physician Active Start: July 21, 2025 Dr. Bernardo Sharif , Emergency Departm ent Physician Active Start: July 21, 2025 Dr. Jack Zuniga , Admitting physician Active Start: July 21, 2025 Dr. Jack Zuniga , Nurse Practitioner Active Start: July 21, 2025 Dr. Marcos Alfredo MD Nurse Practitioner Active Start: July 21, 2025 Dr. Mark Garrido MD Nurse Practitioner Active Sta rt: July 21, 2025 Dr. Nathan Bill MD Nurse Practitioner Active Start: July 21, 2025 Dr. Eleazar Valle , Attending physician Active Start: July 21, 2025 Dr. Eleazar Valle DO Nurse Practitioner Active S tart: July 21, 2025 Dr. Jack Vo MD Nurse Practitioner Active Start: July 21, 2025 Dr. Reid Murillo MD Nurse Practitioner Active Start: July 21, 2025 Dr. Harpreet Gray MD Nurse Practitioner Active Start: July 21, 2025 Dr. Cathie Cantu MD Nurse Practitioner Active Start: June Dr. Dmitri James MD Nurse Practitioner Active S tart: July 21, 2025 Dr. Ricardo Garcia MD Nurse Practitioner Active St art: July 21, 2025 Dr. Kennedy Becerra MD Nurse Practitioner Active S tart: July 21, 2025 Dr. Laura Rodas MD Nurse Practitioner Active Start: July 21, 2025 Dr. Ruth Altamirano MD Nurse Practitioner Active Start: July 21, 2025 Dr. Deepa Blanco MD Nurse Practitioner Active Start: July 21, 2025 Dr. Taran Garcia MD Nurse Practitioner Active Start: July 21, 2025 Dr. Rufus Barker MD Nurse Practitioner Active Start: July 21, 2025 Dr. Alonso Mcknight MD Nurse Practitioner Active Start: July 21, 2025 Dr. Emmett Brown , Nurse Practitioner Active Start: July 21, 2025 Dr. Tess Dietrich MD Nurse Practitioner Active St art: July 21, 2025 Dr. Coleen Tejada MD Nurse Practitioner Active Start: July 21, 2025 Dr. Ramon Mckeon , Nurse Practitioner Active Start: July 21, 2025 Dr. Davon Mcguire MD Nurse Practitioner Active Start: July 21, 2025 Dr. Catia Mercer MD Nurse Practitioner Active Start: June Dr. Mau Hoover MD Nurse Practitioner Active Start: July 21, 2025 Dr. Renee Encarnacion MD Nurse Practitioner Active Start: July 21, 2025 Dr. Gerard Santos DO Referring Provider Active Start: July 21, 2025 Dr. Gerard Santos DO Nurse Practitioner Active Start: July 21, 2025 Team Status: Active Member Role/Relationship Status Renita Ozuna GEOSCIENTIST, GEOSCIENTIST-C Primary care physician Active Start: July 22, 2025 Dr. Bernardo Sharif , Emergency Departm ent Physician Active Start: July 22, 2025 Dr. Jack Zuniga , Admitting physician Active Start: July 22, 2025 Dr. Jack Zuniga , Nurse Practitioner Active Start: July 22, 2025 Dr. Marcos Alfredo MD Nurse Practitioner Active Start: July 22, 2025 Dr. Mark Garrido MD Nurse Practitioner Active Sta rt: July 22, 2025 Dr. Nathan Bill MD Nurse Practitioner Active Start: July 22, 2025 Dr. Eleazar Valle , Attending physician Active Start: July 22, 2025 Dr. Eleazar Valle , Nurse Practitioner Active S tart: July 22, 2025 Dr. Jack Vo MD Nurse Practitioner Active Start: July 22, 2025 Dr. Reid Murillo MD Nurse Practitioner Active Start: July 22, 2025 Dr. Harpreet Gray MD Nurse Practitioner Active Start: July 22, 2025 Dr. Cathie Cantu MD Nurse Practitioner Active Start: June Dr. Dmitri James MD Nurse Practitioner Active S tart: July 22, 2025 Dr. Ricardo Garcia MD Nurse Practitioner Active St art: July 22, 2025 Dr. Kennedy Becerra MD Nurse Practitioner Active S tart: July 22, 2025 Dr. Laura Rodas MD Nurse Practitioner Active Start: July 22, 2025 Dr. Ruth Altamirano MD Nurse Practitioner Active Start: July 22, 2025 Dr. Deepa Blanco MD Nurse Practitioner Active Start: July 22, 2025 Dr. Taran Garcia MD Nurse Practitioner Active Start: July 22, 2025 Dr. Rufus Barker MD Nurse Practitioner Active Start: July 22, 2025 Dr. Alonso Mcknight MD Nurse Practitioner Active Start: July 22, 2025 Dr. Emmett Brown , Nurse Practitioner Active Start: July 22, 2025 Dr. Tess Dietrich MD Nurse Practitioner Active St art: July 22, 2025 Dr. Coleen Tejada MD Nurse Practitioner Active Start: July 22, 2025 Dr. Ramon Mckeon , Nurse Practitioner Active Start: July 22, 2025 Dr. Davon Mcguire MD Nurse Practitioner Active Start: July 22, 2025 Dr. Catia Mercer MD Nurse Practitioner Active Start: June Dr. Mau Hoover MD Nurse Practitioner Active Start: July 22, 2025 Dr. Renee Encarnacion MD Referring Provider Active Start: July 22, 2025 Dr. Renee Encarnacion MD Nurse Practitioner Active Start: July 22, 2025 Dr. Gerard Santos , Nurse Practitioner Active Start: July 22, 2025 Apple Carvalho NP-C Nurse Practitioner Active Start: June Team Status: Active Member Role/Relationship Status Renita Alfonso Ozuna PANKAJ, GEOSCIENTIST-C Primary care physician Active Start: July 23, 2025 Dr. Bernardo Sharif , DO Emergency Departm ent Physician Active Start: July 23, 2025 Dr. Jack Zuniga , DO Admitting physician Active Start: July 23, 2025 Dr. Jack Zuniga , DO Nurse Practitioner Active Start: July 23, 2025 Dr. Marcos Alfredo MD Nurse Practitioner Active Start: July 23, 2025 Dr. Mark Garrido MD Nurse Practitioner Active Sta rt: July 23, 2025 Dr. Nathan Bill MD Nurse Practitioner Active Start: July 23, 2025 Dr. Eleazar Valle , Attending physician Active Start: July 23, 2025 Dr. Eleazar Valle , Nurse Practitioner Active S tart: July 23, 2025 Dr. Jack Vo MD Nurse Practitioner Active Start: July 23, 2025 Dr. Reid Murillo MD Nurse Practitioner Active Start: July 23, 2025 Dr. Harpreet Gray MD Nurse Practitioner Active Start: July 23, 2025 Dr. Cathie Cantu MD Nurse Practitioner Active Start: July 23, 2025 Dr. Dmitri James MD Nurse Practitioner Active S tart: July 23, 2025 Dr. Ricardo Garcia MD Nurse Practitioner Active St art: July 23, 2025 Dr. Kennedy Becerra MD Nurse Practitioner Active S tart: July 23, 2025 Dr. Laura Rodas MD Nurse Practitioner Active Start: July 23, 2025 Dr. Ruth Altamirano MD Nurse Practitioner Active Start: July 23, 2025 Dr. Deepa Blanco MD Nurse Practitioner Active Start: July 23, 2025 Dr. Taran Garcia MD Nurse Practitioner Active Start: July 23, 2025 Dr. Rufus Barker MD Nurse Practitioner Active Start: July 23, 2025 Dr. Alonso Mcknight MD Nurse Practitioner Active Start: July 23, 2025 Dr. Emmett Brown , Nurse Practitioner Active Start: July 23, 2025 Dr. Tess Dietrich MD Nurse Practitioner Active St art: July 23, 2025 Dr. Coleen Tejada MD Nurse Practitioner Active Start: July 23, 2025 Dr. Ramon Mckeon , Nurse Practitioner Active Start: July 23, 2025 Dr. Davon Mcguire MD Nurse Practitioner Active Start: July 23, 2025 Dr. Catia Mercer MD Nurse Practitioner Active Start: July 23, 2025 Dr. Mau Hoover MD Nurse Practitioner Active Start: July 23, 2025 Dr. Renee Encarnacion MD Nurse Practitioner Active Start: July 23, 2025 Dr. Gerard Santos , Nurse Practitioner Active Start: July 23, 2025 Apple Carvalho GEOSCIENTIST-C Nurse Practitioner Active Start: July 23, 2025 Team Status: Active Member Role/Relationship Status Dates Alfonso Ozuna NP, GEOSCIENTIST-C Primary care physician Active Start: July 23, 2025 Dr. Bernardo Sharif , DO Emergency Departm ent Physician Active Start: July 23, 2025 Dr. Jack Zuniga , DO Admitting physician Active Start: July 23, 2025 Dr. Jack Zuniga , Nurse Practitioner Active Start: July 23, 2025 Dr. Renee Encarnacion MD Attending physician Active Start: July 23, 2025 Dr. Renee Encarnacion MD Nurse Practitioner Active Start: July 23, 2025 Dr. Gerard Santos DO Nurse Practitioner Active Start: July 23, 2025 Apple Carvalho GEOSCIENTIST-C Nurse Practitioner Active Start: July 23, 2025 Dr. Marcos Alfredo MD Nurse Practitioner Active Start: July 23, 2025 Dr. Mark Garrido MD Nurse Practitioner Active Sta rt: July 23, 2025 Dr. Nathan Bill MD Nurse Practitioner Active Start: July 23, 2025 Dr. Eleazar Valle , Nurse Practitioner Active S tart: July 23, 2025 Dr. Jack Vo MD Nurse Practitioner Active Start: July 23, 2025 Dr. Reid Murillo MD Nurse Practitioner Active Start: July 23, 2025 Dr. Harpreet Gray MD Nurse Practitioner Active Start: July 23, 2025 Dr. Cathie Cantu MD Nurse Practitioner Active Start: July 23, 2025 Dr. Dmitri James MD Nurse Practitioner Active S tart: July 23, 2025 Dr. Ricardo Garcia MD Nurse Practitioner Active St art: July 23, 2025 Dr. Kennedy Becerra MD Nurse Practitioner Active S tart: July 23, 2025 Dr. Laura Rodas MD Nurse Practitioner Active Start: July 23, 2025 Dr. Ruth Altamirano MD Nurse Practitioner Active Start: July 23, 2025 Dr. Deepa Blanco MD Nurse Practitioner Active Start: July 23, 2025 Dr. Taran Garcia MD Nurse Practitioner Active Start: July 23, 2025 Dr. Rufus Barker MD Nurse Practitioner Active Start: July 23, 2025 Dr. Alonso Mcknight MD Nurse Practitioner Active Start: July 23, 2025 Dr. Emmett Brown , DO Nurse Practitioner Active Start: July 23, 2025 Dr. Tess Dietrich MD Nurse Practitioner Active St art: July 23, 2025 Dr. Coleen Tejada MD Nurse Practitioner Active Start: July 23, 2025 Dr. Ramon Mckeon , DO Nurse Practitioner Active Start: July 23, 2025 Dr. Davon Mcguire MD Nurse Practitioner Active Start: July 23, 2025 Dr. Catia Mercer MD Nurse Practitioner Active Start: July 23, 2025 Dr. Mau Hoover MD Nurse Practitioner Active Start: July 23, 2025 Team Status: Active Member Role/Relationship Status Renita Ozuna NP, GEOSCIENTIST-C Primary care physician Active Start: July 24, 2025 Dr. Bernardo Sharif , DO Emergency Departm ent Physician Active Start: July 24, 2025 Dr. Jack Zuniga , DO Admitting physician Active Start: July 24, 2025 Dr. Jack Zuniga , DO Nurse Practitioner Active Start: July 24, 2025 Dr. Renee Encarnacion MD Attending physician Active Start: July 24, 2025 Dr. Renee Encarnacion MD Nurse Practitioner Active Start: July 24, 2025 Dr. Gerard Santos , DO Nurse Practitioner Active Start: July 24, 2025 Dr. Gregory Galvan MD Nurse Practitioner Active Start: July 24, 2025 Dr. Danish Crawford , DO Nurse Practitioner Active Start: July 24, 2025 Earline Camargo NP-C Nurse Practitioner Active S tart: July 24, 2025 Analy Davis , GEOSCIENTIST-C Nurse Practitioner Active Start: July 24, 2025 SHEILA Ellington Nurse Practitioner Active Start: July 24, 2025 Apple Carvalho NP-C Nurse Practitioner Active Start: July 24, 2025 Dr. Marcos Alfredo MD Nurse Practitioner Active Start: July 24, 2025 Dr. Mark Garrido MD Nurse Practitioner Active Sta rt: July 24, 2025 Dr. Nathan Bill MD Nurse Practitioner Active Start: July 24, 2025 Dr. Eleazar Valle DO Nurse Practitioner Active S tart: July 24, 2025 Dr. Jack Vo MD Nurse Practitioner Active Start: July 24, 2025 Dr. Reid Murillo MD Nurse Practitioner Active Start: July 24, 2025 Dr. Harpreet Gray MD Nurse Practitioner Active Start: July 24, 2025 Dr. Cathie Cantu MD Nurse Practitioner Active Start: July 24, 2025 Dr. Dmitri James MD Nurse Practitioner Active S tart: July 24, 2025 Dr. Ricardo Garcia MD Nurse Practitioner Active St art: July 24, 2025 Dr. Kennedy Becerra MD Nurse Practitioner Active S tart: July 24, 2025 Dr. Laura Rodas MD Nurse Practitioner Active Start: July 24, 2025 Dr. Ruth Altamirano MD Nurse Practitioner Active Start: July 24, 2025 Dr. Deepa Blanco MD Nurse Practitioner Active Start: July 24, 2025 Dr. Taran Garcia MD Nurse Practitioner Active Start: July 24, 2025 Dr. Rufus Barker MD Nurse Practitioner Active Start: July 24, 2025 Dr. Alonso Mcknight MD Nurse Practitioner Active Start: July 24, 2025 Dr. Emmett Brown , Nurse Practitioner Active Start: July 24, 2025 Dr. Tess Dietrich MD Nurse Practitioner Active St art: July 24, 2025 Dr. Coleen Tejada MD Nurse Practitioner Active Start: July 24, 2025 Dr. Ramon Mckeon , Nurse Practitioner Active Start: July 24, 2025 Dr. Davon Mcguire MD Nurse Practitioner Active Start: July 24, 2025 Dr. Catia Mercer MD Nurse Practitioner Active Start: July 24, 2025 Dr. Mau Hoover MD Nurse Practitioner Active Start: July 24, 2025 Team Status: Active Member Role/Relationship Status Dates Alfonso Ozuna GEOSCIENTIST, GEOSCIENTIST-C Primary care physician Active Start: July 25, 2025 Dr. Bernardo Sharif , DO Emergency Departm ent Physician Active Start: July 25, 2025 Dr. Jack Zuniga , DO Admitting physician Active Start: July 25, 2025 Dr. Jack Zuniga , DO Nurse Practitioner Active Start: July 25, 2025 Dr. Renee Encarnacion MD Attending physician Active Start: July 25, 2025 Dr. Renee Encarnacion MD Nurse Practitioner Active Start: July 25, 2025 Dr. Gerard Santos , DO Nurse Practitioner Active Start: July 25, 2025 Dr. Gregory Galvan MD Nurse Practitioner Active Start: July 25, 2025 Dr. Danish Crawford , DO Nurse Practitioner Active Start: July 25, 2025 Earline Camargo GEOSCIENTIST-C Nurse Practitioner Active S tart: July 25, 2025 Analy Davis GEOSCIENTIST-C Nurse Practitioner Active Start: July 25, 2025 SHEILA Ellington Nurse Practitioner Active Start: July 25, 2025 Apple Carvalho GEOSCIENTIST-C Nurse Practitioner Active Start: July 25, 2025 Dr. Marcos Alfredo MD Nurse Practitioner Active Start: July 25, 2025 Dr. Mark Garrido MD Nurse Practitioner Active Sta rt: July 25, 2025 Dr. Nathan Bill MD Nurse Practitioner Active Start: July 25, 2025 Dr. Eleazar Valle , Nurse Practitioner Active S tart: July 25, 2025 Dr. Jack Vo MD Nurse Practitioner Active Start: July 25, 2025 Dr. Reid Murillo MD Nurse Practitioner Active Start: July 25, 2025 Dr. Harpreet Gray MD Nurse Practitioner Active Start: July 25, 2025 Dr. Cathie Cantu MD Nurse Practitioner Active Start: July 25, 2025 Dr. Dmitri James MD Nurse Practitioner Active S tart: July 25, 2025 Dr. Ricardo Garcia MD Nurse Practitioner Active St art: July 25, 2025 Dr. Kennedy Becerra MD Nurse Practitioner Active S tart: July 25, 2025 Dr. Laura Rodas MD Nurse Practitioner Active Start: July 25, 2025 Dr. Ruth Altamirano MD Nurse Practitioner Active Start: July 25, 2025 Dr. Deepa Blanco MD Nurse Practitioner Active Start: July 25, 2025 Dr. Taran Garcia MD Nurse Practitioner Active Start: July 25, 2025 Dr. Rufus Barker MD Nurse Practitioner Active Start: July 25, 2025 Dr. Alonso Mcknight MD Nurse Practitioner Active Start: July 25, 2025 Dr. Emmett Brown , DO Nurse Practitioner Active Start: July 25, 2025 Dr. Tess Dietrich MD Nurse Practitioner Active St art: July 25, 2025 Dr. Coleen Tejada MD Nurse Practitioner Active Start: July 25, 2025 Dr. Ramon Mckeon , DO Nurse Practitioner Active Start: July 25, 2025 Dr. Davon Mcguire MD Nurse Practitioner Active Start: July 25, 2025 Dr. Catia Mercer MD Nurse Practitioner Active Start: July 25, 2025 Dr. Mau Hoover MD Nurse Practitioner Active Start: July 25, 2025 Dr. Kendall Doran MD Nurse Practitioner Active Start: July 25, 2025 Team Status: Active Member Role/Relationship Status Dates Alfonso Ozuna NP, GEOSCIENTIST-C Primary care physician Active Start: July 26, 2025 Dr. Bernardo Sharif , DO Emergency Departm ent Physician Active Start: July 26, 2025 Dr. Jack Zuniga , DO Admitting physician Active Start: July 26, 2025 Dr. Jack Zuniga , DO Nurse Practitioner Active Start: July 26, 2025 Dr. Renee Encarnacion MD Attending physician Active Start: July 26, 2025 Dr. Renee Encarnacion MD Nurse Practitioner Active Start: July 26, 2025 Dr. Gerard Santos , DO Nurse Practitioner Active Start: July 26, 2025 Dr. Gregory Galvan MD Nurse Practitioner Active Start: July 26, 2025 Dr. Danish Crawford , DO Nurse Practitioner Active Start: July 26, 2025 Earline Camargo NP-C Nurse Practitioner Active S tart: July 26, 2025 Analy Davis NP-C Nurse Practitioner Active Start: July 26, 2025 SHEILA Ellington Nurse Practitioner Active Start: July 26, 2025 NATALIIA LazcanoC Nurse Practitioner Active Start: July 26, 2025 Dr. Marcos Alfredo MD Nurse Practitioner Active Start: July 26, 2025 Dr. Mark Garrido MD Nurse Practitioner Active Sta rt: July 26, 2025 Dr. Nathan Bill MD Nurse Practitioner Active Start: July 26, 2025 Dr. Eleazar Valle , Nurse Practitioner Active S tart: July 26, 2025 Dr. Jack Vo MD Nurse Practitioner Active Start: July 26, 2025 Dr. Reid Murillo MD Nurse Practitioner Active Start: July 26, 2025 Dr. Harpreet Gray MD Nurse Practitioner Active Start: July 26, 2025 Dr. Cathie Cantu MD Nurse Practitioner Active Start: July 26, 2025 Dr. Dmitri James MD Nurse Practitioner Active S tart: July 26, 2025 Dr. Ricardo Garcia MD Nurse Practitioner Active St art: July 26, 2025 Dr. Kennedy Becerra MD Nurse Practitioner Active S tart: July 26, 2025 Dr. Laura Rodas MD Nurse Practitioner Active Start: July 26, 2025 Dr. Ruth Altamirano MD Nurse Practitioner Active Start: July 26, 2025 Dr. Deepa Blanco MD Nurse Practitioner Active Start: July 26, 2025 Dr. Taran Garcia MD Nurse Practitioner Active Start: July 26, 2025 Dr. Rufus Barker MD Nurse Practitioner Active Start: July 26, 2025 Dr. Alonso Mcknight MD Nurse Practitioner Active Start: July 26, 2025 Dr. Emmett Brown , Nurse Practitioner Active Start: July 26, 2025 Dr. Tess Dietrich MD Nurse Practitioner Active St art: July 26, 2025 Dr. Coleen Tejada MD Nurse Practitioner Active Start: July 26, 2025 Dr. Ramon Mckeon , Nurse Practitioner Active Start: July 26, 2025 Dr. Davon Mcguire MD Nurse Practitioner Active Start: July 26, 2025 Dr. Catia Mercer MD Nurse Practitioner Active Start: July 26, 2025 Dr. Mau Hoover MD Nurse Practitioner Active Start: July 26, 2025 Dr. Kendall Doran MD Nurse Practitioner Active Start: July 26, 2025 Team Status: Active Member Role/Relationship Status Dates Alfonso Ozuna GEOSCIENTIST, GEOSCIENTIST-C Primary care physician Active Start: July 26, 2025 Dr. Bernardo Sharif , DO Emergency Departm ent Physician Active Start: July 26, 2025 Dr. Jack Zuniga , DO Admitting physician Active Start: July 26, 2025 Dr. Jack Zuniga , DO Nurse Practitioner Active Start: July 26, 2025 Dr. Renee Encarnacion MD Nurse Practitioner Active Start: July 26, 2025 Dr. Gerard Santos , DO Nurse Practitioner Active Start: July 26, 2025 Dr. Gregory Galvan MD Nurse Practitioner Active Start: July 26, 2025 Dr. Danish Crawford , DO Nurse Practitioner Active Start: July 26, 2025 Earilne Camargo GEOSCIENTIST-C Nurse Practitioner Active S tart: July 26, 2025 Analy Davis GEOSCIENTIST-C Nurse Practitioner Active Start: July 26, 2025 SHEILA Ellington Nurse Practitioner Active Start: July 26, 2025 Apple Carvalho GEOSCIENTIST-C Nurse Practitioner Active Start: July 26, 2025 Dr. Marcos Alfredo MD Nurse Practitioner Active Start: July 26, 2025 Dr. Mark Garrido MD Nurse Practitioner Active Sta rt: July 26, 2025 Dr. Nathan Bill MD Nurse Practitioner Active Start: July 26, 2025 Dr. Eleazar Valle , Nurse Practitioner Active S tart: July 26, 2025 Dr. Jack Vo MD Nurse Practitioner Active Start: July 26, 2025 Dr. Reid Murillo MD Nurse Practitioner Active Start: July 26, 2025 Dr. Harpreet Gray MD Nurse Practitioner Active Start: July 26, 2025 Dr. Cathie Cantu MD Nurse Practitioner Active Start: July 26, 2025 Dr. Dmitri James MD Nurse Practitioner Active S tart: July 26, 2025 Dr. Ricardo Garcia MD Nurse Practitioner Active St art: July 26, 2025 Dr. Kennedy Becerra MD Nurse Practitioner Active S tart: July 26, 2025 Dr. Laura Rodas MD Nurse Practitioner Active Start: July 26, 2025 Dr. Ruth Altamirano MD Nurse Practitioner Active Start: July 26, 2025 Dr. Deepa Blanco MD Nurse Practitioner Active Start: July 26, 2025 Dr. Taran Garcia MD Nurse Practitioner Active Start: July 26, 2025 Dr. Rufus Barker MD Nurse Practitioner Active Start: July 26, 2025 Dr. Alonso Mcknight MD Nurse Practitioner Active Start: July 26, 2025 Dr. Emmett Brown DO Nurse Practitioner Active Start: July 26, 2025 Dr. Tess Dietrich MD Nurse Practitioner Active St art: July 26, 2025 Dr. Coleen Tejada MD Nurse Practitioner Active Start: July 26, 2025 Dr. Ramon Mckeon DO Nurse Practitioner Active Start: July 26, 2025 Dr. Davon Mcguire MD Nurse Practitioner Active Start: July 26, 2025 Dr. Catia Mercer MD Nurse Practitioner Active Start: July 26, 2025 Dr. Mau Hoover MD Nurse Practitioner Active Start: July 26, 2025 Dr. Kendall Doran MD Attending physician Active Start: July 26, 2025 Dr. Kendall Doran MD Nurse Practitioner Active Start: July 26, 2025 Reason for Visit (unrecogniz ed section and content) Reason Comments Establish Care Patient here to get established as a new patient and transferring from [place].Patient dx with COPD, seen in ER last [...] BE BASED ON THE PRIMARY CLINICAL RECORDS. [employer] provides no warranty or guarantee of the accuracy or completeness of information in this document.
[2025-10-02 23:24] LABS: Differential Indicated SCAN CRITERIA MET
[2025-10-02 23:27] LABS: Base Excess -1 mmol/L (-2 to +2); FI02 50.0; PEEP 8; PIP 16; PO2 80 mmHG (75-100); RR 12; SITE L Radial; SO2 91 % (94-98)
--- NOTE | 2025-10-02 23:35 | RAD_ITS ---
PROCEDURE: CHEST 1 VIEW (PORTABLE) 10/02/2025 REASON FOR EXAM: SOB TECHNIQUE: Frontal view of the chest. COMPARISON: 07/19/2025 FINDINGS: Lungs/Pleura: Moderate-advanced chronic interstitial emphysematous lung changes. Diffuse hazy airspace opacities may reflect superimposed infectious/inflammatory process. No pneumothorax or sizable pleural effusion. Heart/Mediastinum: Within normal limits. Aortic arch calcification. Bones/Soft tissues: Degenerative changes of the spine and bilateral shoulders. RAD/Chest 1 View (Portable) IMPRESSION: Moderate-advanced chronic interstitial emphysematous lung changes, with diffuse hazy airspace opacities which may reflect a superimposed infectious/inflammatory process. Reading Location: [id number]
[2025-10-02 23:49] LABS: Neutrophil-Segmented 40 % (47-70); Total Cells Counted 100 (MANUAL DIFF)
[2025-10-02 23:50] LABS: Differential Comment SCANNED
[2025-10-02 23:55] LABS: Pro- Brain NATRIURETIC PEPTIDE 2610 pg/mL (<=900); Troponin T High Sensitivity 31 ng/L (<=14)
[2025-10-03] VITALS (38 sets, daily range): BP systolic 81–199; BP diastolic 43–158; PULSE 61–140; RESP 14–42; TEMP 36.3–37.1; O2SAT 30–100; BMI 18.5; BMI 17.8
[2025-10-03] MEDS: Ceftriaxone 2 GM in 0.9% Normal Saline (50mL MB+) 50 ML IV (00:15)
[2025-10-03 00:54] LABS: AST(SGOT) 39 U/L (<=31); Alanine Aminotransfer ALT/SGPT 27 U/L (<=34); Albumin, Serum 4.3 g/dL (3.4-4.8); Alkaline Phosphatase 112 U/L (35-104); Anion Gap 20 (5-15); BUN 26 mg/dL (4-19); BUN/Creat Ratio 21.2 RATIO (10-20); Calcium,Total 9.4 mg/dL (7.6-11.0); Carbon Dioxide 24.6 mmol/L (21.0-32.0); Chloride 91 mmol/L (98-108); Estimated Creatinine Clearance 36.16 ml/min (50-250); Globulin 3.7 g/dL (2.2-4.2); Glucose 192 mg/dL (70-99); Potassium 3.6 mmol/L (3.3-5.1)
--- NOTE | 2025-10-03 01:14 | PCM.HP.STD ---
HPI - General General Date of Admission: 10/03/25 Date of Service: 10/03/25 Chief Complaint: Dyspnea, wheezing, respiratory distress. HPI Narrative The patient is a 70 y/o F w/ PMHx: COPD with chronic hypoxic respiratory failure 4 L NC, Anxiety and Depression, Pulmonary HTN, CAD s/p PCI, Valvular Heart Disease, HFpEF, Tobacco use who presents to the [facility] ED on 10/03/25 with history significant onset respiratory distress starting at home normally wearing 4 L nasal cannula starting in the morning on day prior however progressively worsening prompting eventual ED evaluation. Patient in the ED still in some distress with BiPAP in place but noting she recently had significantly increased dyspnea over the last 2448 hrs. with wheezing and increased cough although no productive sputum. Patient with no recent fevers or chills. Workup in the ED included T97.5, heart 117, BP 150/98, respiratory rate 29, 87% on 4 L nasal cannula immediately transition to the aid of BiPAP with most recent repeat vitals heart rate 130, BP 150/98, respiratory rate 32, 94% on 50% FiO2 BiPAP, CBC with WC 14.2, hemoglobin 12.7, platelet 41 with left shift, ABG with pH 7.15, bicarb 27.5, O2 saturation 91%, pCO2 79.4, pO2 80 on BiPAP, lactic acid 5.5, CMP with chloride 91, anion gap 20, BUN/Cryan 26/1.23, GFR 47, glucose 192, AST 39, alk phos 112, troponin initial 31, NT proBNPII 2610, chest x-ray with moderate advanced chronic interstitial emphysematous lung changes with diffuse hazy opacities possibly superimposed infectious/inflammatory process, rapid SARS COVID/influenza/RSV PCR negative, blood culture x 2 pending per ED. In the ED patient ministered Rocephin 2 g IV x 1, DuoNeb therapy, Solu-Medrol 125 mg IV x 1, ketamine 10 mg IV x 1. 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 Non-rheumatic mitral regurgitation Depression Anxiety Pulmonary hypertension Essential hypertension Pure hypercholesterolemia Atherosclerotic heart disease of [place] coronary artery without angina pectoris Home Medications ?Medication ?Instructions ?Recorded ?Last Taken ?Type aspirin 81 mg tablet,delayed 81 mg PO DAILY heart 07/08/19 Unknown History release (Adult Low Dose Aspirin) atorvastatin 40 mg tablet 40 mg PO QHS cholestrol 07/08/19 Unknown History nitroglycerin 0.4 mg sublingual 0.4 mg sublingual Q5-15M PRN chest 07/08/19 Unknown History tablet pain oxybutynin chloride 10 mg 10 mg PO DAILY overactive bladd 07/08/19 Unknown History tablet,extended release 24 hr albuterol sulfate 90 mcg/actuation 2 puff inhalation Q4H PRN 12/23/20 Unknown Rx aerosol inhaler (Ventolin HFA) shortness of breath or wheezing #8.5 grams brimonidine 0.2 % eye drops 1 drp ophthalmic (eye) DAILY eyes 06/16/21 Unknown History dorzolamide 2 % eye drops 1 drp ophthalmic (eye) TID eyes 06/16/21 Unknown History lisinopril 20 mg tablet 20 mg PO DAILY #90 tabs 06/16/21 Unknown Rx clopidogrel 75 mg tablet 75 mg PO DAILY heart 07/17/25 Unknown History furosemide 40 mg tablet 40 mg PO DAILY heart 07/17/25 Unknown History OXYGEN - Supplemental ([facility] COPD 07/18/25 Unknown History INFORMATIONAL USE ONLY) amlodipine 10 mg tablet 10 mg PO DAILY #30 tabs 07/26/25 Unknown Rx metoprolol tartrate 50 mg tablet 50 mg PO BID #60 tabs 07/26/25 Unknown Rx prednisone 20 mg tablet 40 mg (2 x 20 mg) PO BREAKFAST #2 07/26/25 Unknown Rx tabs potassium chloride 20 mEq 20 meq PO BID 10/03/25 Unknown History tablet,extended release(part/cryst) Allergy/AdvReac Type Severity Reaction Status Date / Time No Known Allergies Allergy Verified 10/02/25 22:59 Family History Mother Diabetes Father No problems noted. Surgical History History of coronary artery stent placement (01/02/17) History of hysterectomy Social History household members: spouse Smoking Status: Current every day smoker tobacco type: cigarettes Tobacco: How many years used: 46 second hand exposure: Yes alcohol intake: never substance use type: does not use caffeine: Yes Type: coffee ROS ROS Narrative Admission Review of Systems: CONSTITUTIONAL: No weight loss, fever, chills, + weakness or fatigue. HEENT: Eyes: No visual loss, blurred vision, double vision or yellow sclerae. Ears, Nose, Throat: No hearing loss, sneezing, congestion, runny nose or sore throat. SKIN: No rash or itching, lesions, wounds. CARDIOVASCULAR: No chest pain, chest pressure or chest discomfort, palpitations, edema, orthopnea, syncopal events. RESPIRATORY: _+ Dyspnea, wheezing, increased work of breathing and eventually distress, cough but no marked recent sputum production. No hemoptysis. GASTROINTESTINAL: No anorexia, nausea, vomiting or diarrhea, abdominal pain, melena, BRBPR. GENITOURINARY: No dysuria, frequency, urgency or retention. NEUROLOGICAL: No headache, dizziness, syncope, paralysis, ataxia, numbness or tingling in the extremities, focal weakness, change in bowel or bladder control, seizure. MUSCULOSKELETAL: + muscle, back pain, joint pain or stiffness. HEMATOLOGIC: No anemia. + Easy bleeding/bruising. LYMPHATICS: No enlarged nodes. No history of splenectomy. PSYCHIATRIC: + History of anxiety and depression. ENDOCRINOLOGIC: No reports of sweating, cold or heat intolerance. No polyuria or polydipsia. ALLERGIES: No history of asthma, hives, eczema or rhinitis. Vital Signs Vital Signs Vital Signs: 10/02/25 22:51 10/02/25 22:54 10/02/25 22:57 Temperature 97.5 F L Temperature Source Temporal Pulse Rate 117 H 130 H Respiratory Rate 29 H 38 H Respiratory Effort Respiratory Pattern Tachypnea Blood Pressure Blood Pressure Mean Pulse Ox 87 92 Oxygen Delivery Method Nasal Cannula Bi-pap Oxygen Flow Rate (L/min) 4 Fraction of Inspired Oxygen (FIO2) 50 10/02/25 23:00 10/02/25 23:01 10/02/25 23:02 Temperature 97.5 F L Temperature Source Axillary Pulse Rate 128 H 128 H Respiratory Rate 14 33 H Respiratory Effort Short of Breath Labored Accessory Muscle Use Respiratory Pattern Gasping Blood Pressure 150/98 H Blood Pressure Mean 115 Pulse Ox 100 96 Oxygen Delivery Method Bi-pap Bi-pap Bi-pap Oxygen Flow Rate (L/min) Fraction of Inspired Oxygen (FIO2) 10/02/25 23:28 10/02/25 23:31 10/02/25 23:40 Temperature Temperature Source Pulse Rate 131 H 136 H 130 H Respiratory Rate 33 H 20 H 32 H Respiratory Effort Respiratory Pattern Tachypnea Tachypnea Blood Pressure 150/98 H Blood Pressure Mean 115 Pulse Ox 98 94 Oxygen Delivery Method Bi-pap Oxygen Flow Rate (L/min) Fraction of Inspired Oxygen (FIO2) 50 10/03/25 00:00 10/03/25 00:37 Temperature Temperature Source Pulse Rate 132 H 134 H Respiratory Rate 22 H 25 H Respiratory Effort Respiratory Pattern Blood Pressure 171/139 H 196/158 H Blood Pressure Mean 149 170 Pulse Ox 96 97 Oxygen Delivery Method Bi-pap Bi-pap Oxygen Flow Rate (L/min) Fraction of Inspired Oxygen (FIO2) Weight Weight: 120 lb 5.958 oz Body Mass Index (BMI) 20.6 Physical Exam Narrative Physical Examination: General: Awake, alert, oriented x 3 and cooperative, seated upright in the ED bed, fatigued, respiratory distress is improved since initial ED arrival, BiPAP in place. Skin: Normal color, normal turgor, no icterus, no cyanosis except occasional stage ecchymoses, abrasion. HEENT: AT/NC, EOMI, PERRLA, dry MM, BiPAP in place, difficult discern carotid bruit given referred sounds with BiPAP, no evident JVD. Lungs: Significantly diminished, greater bases, increased respiratory rate with accessory muscle usage, distress lessening with BiPAP in place now, notable expiratory and occasional expiratory wheezing, no rhonchi or rales. Heart: Tachycardic with regular rhythm; no gallop, rub audible. Abdomen: Soft, thin habitus, NTTP, ND, normal BS, no appreciated HSM. Extremities: No cyanosis, no clubbing, no significant distal edema noted. Neurological: Patient awake, alert, oriented as noted, cognitive function suspect currently baseline intact; pupils equally reactive to light and accommodation, cranial nerves grossly normal, moving all 4 extremities, no focal deficits, strength severely globally decreased secondary to acute presentation complaints. Psychiatric: Affect appears fatigued, respiratory distress lessening, BiPAP in place, no acute evidence of depressive or anxiety feelings. Results Lab / Micro Data 10/02/25 23:00 10/02/25 23:00 Labs: Laboratory Results - last 24 hr 10/02/25 23:00: WBC 14.2 H, RBC 4.69, Hgb 12.7, Hct 40.4, MCV 86.1, MCH 27.1, MCHC 31.4 L, RDW Std Deviation 50.8 H, RDW Coeff of Shivam 16.1 H, Plt Count 481 H, MPV 10.1, Immature Gran % (Auto) 0.300, Neut % (Auto) 34.7 L, Lymph % (Auto) 53.4 H, [place] % (Auto) 8.7, Eos % (Auto) 2.0, Baso % (Auto) 0.9, Absolute Neuts (auto) 4.9, Absolute Lymphs (auto) 7.60 H, Total Counted 100, Neutrophils % (Manual) 40 L, Lymphocytes % (Manual) 55 H, Monocytes % (Manual) 4, Basophils % (Manual) 1, Nucleated RBC % 0, Differential Comment SCANNED, Sodium 135, Potassium 3.6, Chloride 91 L, Carbon Dioxide 24.6, Anion Gap 20 H, BUN 26 H, Creatinine 1.23 H, Estim Creat Clear Calc 36.16 L, Est GFR (MDRD) Non-Af 47 L, BUN/Creatinine Ratio 21.2 H, Glucose 192 H, Calcium 9.4, Total Bilirubin 0.31, AST 39 H, ALT 27, Alkaline Phosphatase 112 H, Troponin T High Sens 31 H D, NT pro BNP II 2610 H, Total Protein 8.1, Albumin 4.3, Globulin 3.7, Albumin/Globulin Ratio 1.2 10/02/25 23:09: Lactic Acid 5.5 H* Micro: Microbiology 10/03/25 00:05 Mucosa - Nose SARS-CoV-2, Influenza & RSV (PCR) - Final ABG Data ABG results: ABG 10/02/25 23:20 Specimen Type ART Sample Site L Radial pH 7.15 L* Bicarbonate Actual 27.5 H Total CO2 30 Base Excess -1 O2 Saturation 91 L O2 % 50.0 ABG pCO2 79.4 H* ABG pO2 80 Respiration Rate 12 O2 Delivery Device BiPAP Vent Mode Not entered POC PEEP 8 Peak Inspir Pressure 16 Crit Call To/Read Back Yes Blood Gas Notified Whom Dr Albarran Blood Gas Notified Time 23:23:35 Imaging Radiology Impression Chest X-Ray 12/11/25 23:35 IMPRESSION: Moderate-advanced chronic interstitial emphysematous lung changes, with diffuse hazy airspace opacities which may reflect a superimposed infectious/inflammatory process. Reading Location: [facility] Assessment & Plan Assessment/Plan (1) Acute on chronic respiratory failure with hypoxia and hypercapnia: PLAN: Plan The patient is a 70 y/o F w/ PMHx: COPD with chronic hypoxic respiratory failure 4 L NC, Anxiety and Depression, Pulmonary HTN, CAD s/p PCI, Valvular Heart Disease, HFpEF, Tobacco use who presents to the [facility] ED on 10/03/25 with history significant onset respiratory distress starting at home normally wearing 4 L nasal cannula starting in the morning on day prior however progressively worsening prompting eventual ED evaluation. #1. Acute hypoxic and hypercarbic respiratory failure on chronic hypoxic respiratory failure 4 L NC, multifactorial, secondary to acute on chronic COPD exacerbation with significant interstitial emphysematous lung change in addition to concern for possible Versus acute viral syndrome with associated significant lactic acidosis secondary to hypoxemia: Will admit to the ICU, will consult proposal manager writer per protocol, will repeat ABG as needed, will maintain on BiPAP with wean as tolerated to nasal cannula supplementation, in the ED patient very insistent DNR CCA no intubation status, will continue ATC duonebs, PRN albuterol, maintain on IV Solu-Medrol, maintain on IV Rocephin and azithromycin given concern for possibly developing pneumonia however de-escalate off if appropriate or broaden if needed, encourage HOB, IS parameters w/ pending sputum cultures, full respiratory viral panel and urine antigens, procalcitonin requested. Bld cx x 2 obtained in the ED. PT/OT/case management consult for discharge planning. #2. HFpEF: Most recent echocardiogram as noted 07/12/2025 with LV EF 55% with stage I diastolic dysfunction with mild to moderate valvular abnormalities, will continue aspirin, Plavix, statin, metoprolol, lisinopril, Lasix with low threshold for pulse dose diuresis if concern arises for overload. #3. Valvular heart disease: 07/16/2025 echocardiogram with mild concentric LVH, inferior hypokinesis, estimated LV 55%, stage I diastolic dysfunction, moderate posterior mitral valve annular calcification, calcified cord, mild mitral valve regurgitation, mild tricuspid valve insufficiency, mild calcified aortic valve leaflets, aortic valve sclerosis without stenosis, mild 1+ pulmonic valve insufficiency. #4. CAD: Status post previous PCI, will continue aspirin, Plavix, statin, metoprolol, lisinopril home regimen. #5. Anxiety and depression: Per current list does not appear to be on regimen, encourage continued follow-up outpatient as previously arranged. #6. Hypertension: Continue home regimen including metoprolol, lisinopril, Lasix with hold parameters as needed, PRN hydralazine. #7. Hyperlipidemia: Will continue patient on statin therapy. #8. Tobacco Abuse: Encouraged cessation, inpatient consultation per RT, NR if desired. #9. DVT prophylaxis: Lovenox. #10. CODE status: Patient has been would be her medical decision-maker if necessary. From discussion it seems as though there is no formal healthcare power of prosecuting attorney set up or living will. Discussed CODE status at length including difference between FULL code, DNR-CCA and DNR-CC status. Following discussions about the differences in these status, requested very specifically DNR CCA no intubation with several discussions about whether or not patient worsened if she would want to be intubated then and she continued to remain no intubation status. Advanced Care Planning Face to Face Time: 16 minutes. Charges/Coding Visit Charges Inpatient E&M: 51322 Init Hosp L3 Procedures Hospitalists Procedures: 87559 Advncd Care Plan 30 Min
[2025-10-03 01:23] LABS: Comment AVAPS; FI02 40.0; PEEP 8; RR 14; SITE Not entered; VBG BASE EXCESS 7 mmol/L (-1.0-3.5); VBG PO2 41 mmHg (25-40); VBG SO2 71 % (50-70); VBG TCO2 35 mmol/L (23-33)
--- OUTSIDE RECORDS SUMMARY | 2025-10-03 01:49 | XMS RPT_ITS | CCD ---
Author Organization [facility] Care Team Providers Care Services Clerk Name Role Phone Opal Brambila Alpa Unavailable Unavailable FERCHO VILLASEÑOR Primary Care Physician Marissa Rounding Nurse, Amaury Unavailable Barb Ernandez Unavailable Unavailable Elvin Blanc PA-C Primary Care Provider Fercho Villaseñor DO Unavailable JACK CARMICHAEL DO Attending Unavailable JACK CARMICHAEL DO Attending Unavailable DO FERCHO VILLASÑEOR Primary Care Unavailab BRONWYN Upton MD Consulting Unavailable DOC PERERA Attending Unavailable ANNIE PAREDES, JHONNY Admitting Unavailable DOC PERERA Consulting [...] Unavailable KENZIE FONTANA Primary Care Unavailable Laith TAPER OPERATOR-C, Alfonso Primary Care Physician Dr. Bernardo Sharif DO Emergency Department Physi sarah Zuniga DO, Dr. Santiago Admitting Physician Candy vailable Zuniga DO, Dr. Santiago Nurse Practitioner Unav ailable Juni PAREDES, Dr. Rodríguez Nurse Practitioner [phone] Radhika PAREDES, Dr. Flores Nurse Practitioner [phone] Fly PAREDES, Dr. Evans Nurse Practitioner Leonard GONG, Dr. Bush Nurse Practitioner Tavo PAREDES, Dr. Jack Chacko Nurse Practitioner [phone] Lidia PAREDES, Dr. Mathews Nurse Practitioner Marina PAREDES, Dr. Mullins Nurse Practitioner [phone] Alondra PAREDES, Dr. Brand Nurse Practitioner Jacob PAREDES, Dr. Rizvi Nurse Practitioner [phone] Jose PAREDES, Dr. Silva Nurse Practitioner [phone] Hernan PAREDES, Dr. Benavides Nurse Practitioner [phone] Dr. Laura Rodas MD Nurse Practitioner [phone] Adarsh PAREDES, Dr. Miranda Nurse Practitioner Unavail alexandria Blanco MD, Dr. Arenas Nurse Practitioner [phone] Jose PAREDES, Dr. Chirinos Nurse Practitioner [phone] Lucero PAREDES, Dr. Hooper Nurse Practitioner Juan Luis PAREDES, Dr. Gupta Nurse Practitioner [phone] Stephanie GONG, Dr. Christine Nurse Practitioner Kaur PAREDES, Dr. Pulido Nurse Practitioner [phone] Terrell PAREDES, Dr. Horne Nurse Practitioner Linda GONG, Dr. Navarro Nurse Practitioner [phone] Maynor PAREDES, Dr. Mays Nurse Practitioner Ruslan PAREDES, Dr. Bardales Nurse Practitioner Kiko PAREDES, Dr. León Nurse Practitioner [phone] Alysha PAREDES, Dr. Renee Rossi Attending Physician Danielle GONG, Dr. Gee Nurse Practitioner Maia TAPER OPERATOR-C, Apple Nurse Practitione r Leonard GONG, Dr. Bush Attending Physician Kuldip PAREDES, Dr. Tamez Attending Physician Danielle GONG, Dr. Gee Attending Physician Alysha PAREDES, Dr. Renee Rossi Nurse Practitioner Maia TAPER OPERATOR-C, Apple Attending Physici an Cole PAREDES, Dr. Jenkins Nurse Practitioner Yvette GONG, Dr. Peng Nurse Practitioner Raman TAPER OPERATOR-C, Earline Nurse Practitioner Doc TAPER OPERATOR-C, Analy Nurse Practitioner Lakisha Orozco Nurse Practitioner Espinoza PAREDES, Dr. Argueta Nurse Practitioner Dr. Gerard Santos DO Referring Provider Alysha PAREDES, Dr. Renee Rossi Referring Provider Espinoza PAREDES, Dr. Argueta Attending Physician Jack Zuniga Admitting Unavailable Gerard Santos Attending Unavailable Laith TAPER OPERATOR, Alfonso Primary Care Unavailable Marcos Alfredo Consulting [...] Consulting Unavailable Gerard Santos Consulting Unavailable Eleazar Valle Attending Unavailable Gerard Santos Referring Unavailable Renee Encarnacion Consulting Unavailable Renee Encarnacion Attending Unavailable Renee Encarnacion Referring Unavailable Apple Carvalho Consulting Apple Lester Attending Gregory Washington Consulting Unavailable Danish Crawford Consulting Unavailable Earline Camargo Consulting Unavailable Analy Davis Consulting Unavailable Lakisha Dunn Consulting Unavailable Espinoza Nagapradee Consulting Unavailsonu Ozuna TAPER OPERATOR, Alfonso Primary Care Unavailable Dashawn Christiansen Attending Unavailable Laith TAPER OPERATOR, Alfonso Primary Care Unavailable Laith TAPER OPERATOR, Alfonso Referring Unavailable Adriana Wiggins Attending Unavailable Laith TAPER OPERATOR, Alfonso Primary Care Unavailable Jack Zuniga Admitting [...] Emmett Consulting Unavailable Dietrich, Sujoy Consulting Unavailable Belcamp, Soleyah Consulting Unavailable Fernstrheath, Ramon Consulting Unavailable [...] Unavailable ASTRID ROBERT MD Attending Unavailabl e ASTRDI ROBERT MD Admitting Unavailabl e LAITH, ALFONSO [...] NKDA; 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: [NKDA] allergy to substance 7 [employer] Work Phone: NEGATED: Highlighted row has been ruled out! (1 source) Observed no known allergies at [facility] No Known Allergies propensity to adverse reactions [employer] Work Phone: Medications Current Medications Medication Drug Class(es) Dates Sig (Normalized) Sig (Original) [id number] 200 actuat albuterol 0.09 mg/actuat metered dose inhaler (9 sources) beta2-Adrenergic Agonist Start: 07-08-2019 End: 12-23-2020 Start: 01-12-2017 PROVENTIL HFA 108 (90 Base) MCG/ACT AERS every 6 hrs as needed ALBUTEROL SULFATE [id number] Juanjo Marr MD take 2 puff(s) by [...] wheezing, # 8.5 gram(s), 3 Refill(s), Pharmacy: [facility], 157.5, cm, 09/02/23 6:47:00 EST, [...] wheezing, # 8.5 gram(s), 3 Refill(s), Pharmacy: [facility], 157.5, cm, 09/02/23 6:47:00 EST, [...] wheezing, # 8.5 gram(s), 3 Refill(s), Pharmacy: [facility], 157.5, cm, 09/02/23 6:47:00 EST, [...] One tablet by mouth daily ATORVASTATIN CALCIUM [id number] Rashida Hampton RN brimonidine tartrate 2 mg/ml [...] BID, # 180 tab(s), 0 Refill(s), Pharmacy: [facility], 157.5, cm, 11/04/24 11:10:00 EST, Height, kg, 11/04/24 11:10:00 EST, Dosing Weight Start Date: 11/28/24 Status: Ordered Medication Dispense Status: Completed Quantity: 180.0 Unit: tab(s) Total Allowed Fills: 1 Fills Dispensed: 0 Start: 01-22-2024 Coreg 6.25 mg oral tablet Dose : 6.25 mg = 1 tab(s), Oral, BID, # 180 tab(s), 3 Refill(s), Pharmacy: [facility], 157.5, cm, 01/22/24 16:06:00 EDT, Height, kg, [...] refills, # 90 tab(s), 0 Refill(s), Pharmacy: [facility], 157.5, cm, 03/05/25 15:36:00 EDT, Height, kg, 03/05/25 15:36:00 EDT, Dosing Weight Start Date: 05/16/25 Status: Ordered Medication Dispense Status: Completed Quantity: 90.0 Unit: tab(s) Total Allowed Fills: 1 Fills Dispensed: 0 Start: 09-02-2024 Zetia 10 mg or al tablet Dose : 10 mg = 1 tab(s), Oral, qDay, # 90 tab(s), 1 Refill(s), Pharmacy: [facility], 157.5, cm, 02/22/24 16:04:00 EDT, Height, kg, 02/22/24 16:04:00 EDT, Dosing Weight Start Date: 09/02/24 Status: Ordered Quantity: 90.0 Unit: tab(s) Repeat number: 2 30 actuat fluticasone furoate 0.1 mg/actuat / umeclidinium 0.0625 mg/actuat / vilanterol 0.025 mg/actuat dry powder inhaler (2 sources) Anticholinergic, Corticosteroid, beta2-Adrenergic Agonist take 3 puff(s) by inhalation once daily pluujdgpdwq-wiulnepkd-gwzkijsn (Trelegy Ellipta) 100-62.5-25 mcg blister with device Inhale 3 puffs once daily. Active furosemide 40 mg oral tablet (8 sources) Loop Diuretic Sta rt: Start: 06-25-2025 End: 12-22-2025 Lasix 40 mg oral tablet Dose : 40 mg = 1 tab(s), Oral, qDay, # 90 tab(s), 1 Refill(s), Pharmacy: [facility], 160, cm, 06/16/25 9:24:00 EDT, Height, kg, [...] BIDM, # 60 tab(s), 3 Refill(s), Pharmacy: [facility], 157.5, cm, 09/02/23 6:47:00 EST, [...] tablet by mouth twice daily METOPROLOL TARTRATE [id number] Rashida Hampton RN Start: 01-06-2017 take 0.5 tablet by m out once daily METOPROLOL SUCCINATE ER 25 MG [id number] One-half tablet by mouth daily METOPROLOL SUCCINATE [id number] Juanjo Marr MD montelukast 10 mg oral [...] 3 as needed for chest pain. NITROGLYCERIN [id number] Juanjo Marr MD OXcarbazepine 150 mg oral [...] once daily OXYBUTYNIN CHLORIDE ER 10 MG [id number] One tablet by mouth daily (HOLD) OXYBUTYNIN CHLORIDE [id number] Sharron Nguyen RN microencapsulated potassium chloride 20 meq extended release oral tablet (2 sources) Start: 06-20-2024 KlorGhulam M20 o ral tablet, extended release Dose : 20 mEq = 1 tab(s), Oral, BID, # 60 tab(s), 5 Refill(s), Pharmacy: [facility], 157.5, cm, 02/22/24 16:04:00 EDT, Height, kg, [...] qDay, # 3 tab(s), 0 Refill(s), Pharmacy: [facility], 160, cm, 06/16/25 9:24:00 EDT, Height, kg, [...] qDay, # 60 tab(s), 3 Refill(s), Pharmacy: [facility], 157.5, cm, 09/02/23 6:47:00 EST, Height, kg, 09/02/23 6:47:00 EST, Dosing Weight Start Date: 09/06/23 Status: Ordered sacubitril 97 mg / valsartan 103 mg oral tablet (3 sources) Angiotensin 2 Receptor Cherelle Start: 03-06-2025 take 1 tablet by mouth twice daily Entresto 97 mg-103 mg oral tablet Dose = 1 tab(s), Oral, BID, # 180 tab(s), 2 Refill(s), Pharmacy: [facility], 157.5, cm, 03/05/25 15:36:00 EDT, Height, kg, 03/05/25 15:36:00 EDT, Dosing Weight Start Date: 03/06/25 Status: Ordered Medication Dispense Status: Completed Quantity: 180.0 Unit: tab(s) Total Allowed Fills: 3 Fills Dispensed: 0 Start: 01-22-2024 take 1 tablet by santos th twice daily Entresto 49 mg-51 mg oral tablet Dose = 1 tab(s), Oral, BID, # 180 tab(s), 3 Refill(s), Pharmacy: [facility], 157.5, cm, 01/22/24 16:06:00 EDT, Height, kg, 01/22/24 16:06:00 EDT, Dosing Weight Start Date: 01/22/24 Status: Ordered Quantity: 180.0 Unit: tab(s) Repeat number: 4 Start: 09-06-2023 take 1 tablet by santos th twice daily Entresto 24 mg-26 mg oral tablet Dose = 1 tab(s), Oral, BID, # 60 tab(s), 3 Refill(s), Pharmacy: [facility], 157.5, cm, 09/02/23 6:47:00 EST, [...] swallow)., # 60 EA, 3 Refill(s), Pharmacy: [facility], 157.5, cm, 09/02/23 6:47:00 EST, [...] qDayM, # 90 tab(s), 3 Refill(s), Pharmacy: [facility], 160, cm, 06/16/25 9:24:00 EDT, Height, kg, [...] disease (16 sources) 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; 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: [Coronary [...] findings of blood chemistry] Onset: 11-04-2024 Episodic [place]-; endo-; and myocarditis; cardiomyopathy (9 sources) Hypertrophic [...] Respiratory failure; insufficiency; arrest (adult) (11 sources) Ekuyo-mp-njorkcj respiratory failure; 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: [Acute and chronic respiratory [...] 10-09-2024 Episodic Other aftercare (2 sources) 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; 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: [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] Onset: 01-06-2017 01-06-2017 Episodic Other aftercare (1 source) care home (current) use of aspirin; 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: [bed bug exterminator (current) use of aspirin] Onset: 11-04-2024 Episodic Other aftercare (1 source) bed bug exterminator (current) use of antithrombotics/ant iplatelets; 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: [bed bug exterminator (current) use of antithrombotics/ant iplatelets] Onset: 11-04-2024 [...] # 0.04 x10EE3/UL Normal 0.00 - 0.10 [facility] Comment on above: Performed By: #### 2 46395 ####[facility],[address] [place] [address] 73995 Basophils/100 WBC (Bld) 0.6 % Normal 0.0 - 2.0 [facility] Comment on above: Performed By: #### 2 25083 ####[facility],[address] [place] [address] CBC + DIFF Normal [facility] Comment on above: Result Comment: CBC- COMPLETE BLOOD COUNT Performed By: #### 2 99058 ####[facility],[address] [place] [address] EO # 0.05 x10EE3/UL Normal 0.00 - 0.50 [facility] Comment on above: Performed By: #### 2 51735 ####[facility],[address] [place], [place] [id number] Eosinophils/100 WBC (Bld) 0.7 % Normal 0.0 - 7.0 [facility] Comment on above: Performed By: #### 2 97571 ####[facility],[address] [place] [address] Erythrocyte distribution width (RBC) [Ratio] 15.3 % Normal 12.0 - 15.6 [facility] Comment on above: Performed By: #### 2 31677 ####[facility],[address] [place] [address] Hematocrit (Bld) [Volume fraction] 23.7 % Low 34.0 - 46.0 [facility] Comment on above: Performed By: #### 2 56412 ####[facility],[address] [place], [place] [id number] Hemoglobin (Bld) [Mass/Vol] 8.1 g/dL Low 12.0 - 16.0 [facility] Comment on above: Performed By: #### 2 39871 ####[facility],[address] [place] [address] Lymph # 1.58 x10EE3/UL Normal 0.80 - 2.80 [facility] Comment on above: Performed By: #### 2 36130 ####[facility],[address] [place], [place] [id number] Lymphocytes/100 WBC (Bld) 21.5 % Normal 20.0 - 45.0 [facility] Comment on above: Performed By: #### 2 09317 ####[facility],[address] [place], [place] [id number] MANUAL DIFF N/A Normal [facility] Comment on above: Performed By: #### 2 18131 ####[facility],[address] [place] [address] MCH (RBC) [Entitic mass] 29 pg Normal 27 - 33 [facility] Comment on above: Performed By: #### 2 49073 ####[place] [address] MCHC 34 X10 3 Normal 32 - 36 [facility] Comment on above: Performed By: #### 2 30728 ####[place] [id number] MCV (RBC) [Entitic vol] 86 fL Normal 80 - 99 [facility] Comment on above: Performed By: #### 2 80773 ####[facility],[address] [place] [address] [place] # 0.84 x10EE3/UL Normal 0.20 - 1.00 [facility] Comment on above: Performed By: #### 2 68216 ####[place] [id number] MONOS % 11.5 % High 0.0 - 10.0 [facility] Comment on above: Performed By: #### 2 63060 ####[facility],[address] [place] [address] 69809 Morphology Dandy (Bld) [Interp] N/A Normal [facility] Comment on above: Performed By: #### 2 66449 ####[facility],[address] [place] [address] 70059 Neut # 4.85 x10EE3/UL Normal 1.50 - 7.10 [facility] Comment on above: Performed By: #### 2 90331 ####[facility],[address] [place] [address] 65851 Neutrophils/100 WBC (Bld) 65.8 % Normal 46.0 - 76.0 [facility] Comment on above: Performed By: #### 2 91829 ####[facility],[address] [place] [address] 00724 PLATELET 346 x10EE3/UL Normal 150 - 450 [facility] Comment on above: Performed By: #### 2 69248 ####[facility],[address] [place] [address] 95676 Platelet mean volume (Bld) [Entitic vol] 7.5 fL Normal 6.6 - 10.5 [facility] Comment on above: Result Comment: AUTO MATED DIFFERENTIAL Performed By: #### 2 23210 ####[facility],[address] [place] [address] 25314 RBC 2.75 x 10EE6/UL Low 4.10 - 5.30 [facility] Comment on above: Performed By: #### 2 45386 ####[facility],[address] [place] [address] 26034 WBC 7.4 x 10EE3/UL Normal 4.5 - 10.8 [facility] Comment on above: Performed By: #### 2 18321 ####[facility],[address] [place] [address] 84739 CMP with eGFRon 08-01-2025 AGE 70 years Normal [facility] Comment on above: Performed By: #### 2 64497 ####[facility],[address] [place] [address] 51081 Albumin [Mass/Vol] 2.1 g/dL Low 3.4 - 5.0 [facility] Comment on above: Performed By: #### 2 11227 ####[facility],[address] [place] [address] 59214 Albumin/Globulin [Mass ratio] 0.7 {ratio} Low 0.9 - 1.6 [facility] Comment on above: Performed By: #### 2 32190 ####[facility],[address] [place] [address] 66867 ALK PHOS 53 U/L Normal 46 - 116 [facility] Comment on above: Performed By: #### 2 86323 ####[facility],[address] [place] [address] 74730 ALT [Catalytic activity/Vol] 32 U/L Normal 16 - 63 [facility] Comment on above: Performed By: #### 2 55565 ####[facility],[address] [place] [address] 62486 Anion gap [Moles/Vol] 6 mmol/L Low 10 - 20 [facility] Comment on above: Performed By: #### 2 32112 ####[facility],[address] [place] [address] 66447 AST [Catalytic activity/Vol] 25 U/L Normal 13 - 39 [facility] Comment on above: Performed By: #### 2 18998 ####[facility],[address] [place] [address] 90733 B/C RATIO 19 ratio Normal 0 - 30 [facility] Comment on above: Performed By: #### 2 81631 ####[facility],[address] [place] [address] 03124 Bilirubin [Mass/Vol] 0.3 mg/dL Normal 0.2 - 1.0 [facility] Comment on above: Performed By: #### 2 46670 ####[facility],[address] [place] [address] 32779 Calcium [Mass/Vol] 8.0 mg/dL Low 8.5 - 10.1 [facility] Comment on above: Performed By: #### 2 57535 ####[facility],[address] [place] [address] 88487 Chloride [Moles/Vol] 99 mmol/L Normal 98 - 107 [facility] Comment on above: Performed By: #### 2 26318 ####[facility],[address] [place] [address] 37397 CMP with eGFR Normal [facility] Comment on above: Result Comment: COMP REHENSIVE METABOLIC PANEL Performed By: #### 2 02391 ####[facility],[address] [place] [address] 24098 CO2 [Moles/Vol] 33.8 mmol/L High 21.0 - 32.0 [facility] Comment on above: Performed By: #### 2 84454 ####[facility],[address] [place] [address] 28771 Creatinine [Mass/Vol] 0.62 mg/dL Normal 0.55 - 1.02 [facility] Comment on above: Performed By: #### 2 98472 ####[facility],[address] [place] [address] 02481 GFR/1.73 sq M.predicted among non-blacks MDRD (S/P/Bld) [Vol rate/Area] mL/min/{1.73_m2} Normal 60 - 999 [facility] Comment on above: Performed By: #### 2 81806 ####[facility],[address] [place] [address] 27323 Result Comment: ACCO RDING TO THE NATIONAL KIDNEY DISEASE EDUCATION PROGRAM(NKDE), A NORMAL eGFRIS A VALUE GREATER THAN OR EQUAL TO 60 ML/MIN/1.73 SQ METERS.CHRONIC KIDNEY DISEASE: <60mL/MIN/1.73 SQ METERSKIDNEY FAILURE: <15mL/MIN/1.73 SQ METERSTHIS TEST SHOULD ONLY BE USED FOR PATIENTS 18 YEARS OF AGE AND OLDER. Globulin (S) [Mass/Vol] 2.9 g/dL Normal 1.5 - 3.8 [facility] Comment on above: Performed By: #### 2 62846 ####[facility],[address] [place] [address] 18749 Glucose [Mass/Vol] 84 mg/dL Normal 74 - 106 [facility] Comment on above: Performed By: #### 2 51590 ####[facility],[address] [place] [address] 52405 Potassium [Moles/Vol] 2.9 mmol/L Critically low 3.5 - 5.1 [facility] Comment on above: Result Comment: { CA LLED TO GERARDO WYNN BY CB AT 0939{ READ BACK BY GERARDO WYNN RA AT 0930 Performed By: #### 2 68609 ####[facility],[address] [place] [address] 27895 Protein [Mass/Vol] 5.0 g/dL Low 6.4 - 8.2 [facility] Comment on above: Performed By: #### 2 38852 ####[facility],[address] [place] [address] 70957 Sodium [Moles/Vol] 136 mmol/L Normal 136 - 145 [facility] Comment on above: Performed By: #### 2 98558 ####[facility],[address] [place] [address] 64856 Urea nitrogen [Mass/Vol] 12 mg/dL Normal 7 - 18 [facility] Comment on above: Performed By: #### 2 16837 ####[facility],[address] [place] [address] 64871 Basic Metabolic Profile (BMP )on 07-29-2025 BUN Normal -19 [facility] Comment on above: Result Comment: Canc elled via OM: Order cancelled - Patient discharged Performed By: #### L 500.2500, L100.0100 ####[facility] [address] [place], [address] BUN/CRE Normal 10-20 [facility] Comment on above: Result Comment: Canc elled via OM: Order cancelled - Patient discharged Performed By: #### L 500.2500, L100.0100 ####[facility] [address] [place], [address] Calcium Normal 7.6-11.0 [facility] Comment on above: Result Comment: Canc elled via OM: Order cancelled - Patient discharged Performed By: #### L 500.2500, L100.0100 ####[facility] [address] [place], [address] CL Normal 98-108 [facility] Comment on above: Result Comment: Canc elled via OM: Order cancelled - Patient discharged Performed By: #### L 500.2500, L100.0100 ####[facility] [address] [place], [address] CO2 Normal 21.0-32.0 [facility] Comment on above: Result Comment: Canc elled via OM: Order cancelled - Patient discharged Performed By: #### L 500.2500, L100.0100 ####[facility] [address] [place], [address] CREAT,SERUM Normal 0.70-1.20 [facility] Comment on above: Result Comment: Canc elled via OM: Order cancelled - Patient discharged Performed By: #### L 500.2500, L100.0100 ####[facility] [address] [place], [address] eGFR Normal >60 [facility] Comment on above: Result Comment: Canc elled via OM: Order cancelled - Patient discharged Performed By: #### L 500.2500, L100.0100 ####[facility] [address] [place], [address] GAP Normal 5-15 [facility] Comment on above: Result Comment: Canc elled via OM: Order cancelled - Patient discharged Performed By: #### L 500.2500, L100.0100 ####[facility] [address] [place], [address] GLU Normal 70-99 [facility] Comment on above: Result Comment: Canc elled via OM: Order cancelled - Patient discharged Performed By: #### L 500.2500, L100.0100 ####[facility] [address] [place], [address] Potassium Normal 3.3-5.1 [facility] Comment on above: Result Comment: Canc elled via OM: Order cancelled - Patient discharged Performed By: #### L 500.2500, L100.0100 ####[facility] [address] [place], [address] Basic Metabolic Profile (BMP) Normal 133-145 [facility] Comment on above: Result Comment: Canc elled via OM: Order cancelled - Patient discharged Performed By: #### L 500.2500, L100.0100 ####[facility] [address] [place], [address] CBC W/Diff, Automatedon 10-0 7-2024 Absolute Neut Normal 2.0-7.7 [facility] Comment on above: Result Comment: Canc elled via OM: Order cancelled - Patient discharged Performed By: #### L 500.2500, L100.0100 ####[facility] [address] [place], [address] HCT Normal 37-47 [facility] Comment on above: Result Comment: Canc elled via OM: Order cancelled - Patient discharged Performed By: #### L 500.2500, L100.0100 ####[facility] [address] [place], [address] HGB Normal 12.0-15.0 [facility] Comment on above: Result Comment: Canc elled via OM: Order cancelled - Patient discharged Performed By: #### L 500.2500, L100.0100 ####[facility] [address] [place], [address] MCH Normal 27.0-32.0 [facility] Comment on above: Result Comment: Canc elled via OM: Order cancelled - Patient discharged Performed By: #### L 500.2500, L100.0100 ####[facility] [address] [place], [address] MCHC Normal 32-36 [facility] Comment on above: Result Comment: Canc elled via OM: Order cancelled - Patient discharged Performed By: #### L 500.2500, L100.0100 ####[facility] [address] [place], [address] MCV Normal 81-99 [facility] Comment on above: Result Comment: Canc elled via OM: Order cancelled - Patient discharged Performed By: #### L 500.2500, L100.0100 ####[facility] [address] [place], [address] NEUT% Normal 47-70 [facility] Comment on above: Result Comment: Canc elled via OM: Order cancelled - Patient discharged Performed By: #### L 500.2500, L100.0100 ####[facility] [address] [place], [address] PLT Normal 150-450 [facility] Comment on above: Result Comment: Canc elled via OM: Order cancelled - Patient discharged Performed By: #### L 500.2500, L100.0100 ####[facility] [address] [place], [address] RBC Normal 4.2-5.4 [facility] Comment on above: Result Comment: Canc elled via OM: Order cancelled - Patient discharged Performed By: #### L 500.2500, L100.0100 ####[facility] [address] [place], [address] RDW CV Normal 11.6-14.6 [facility] Comment on above: Result Comment: Canc elled via OM: Order cancelled - Patient discharged Performed By: #### L 500.2500, L100.0100 ####[facility] [address] [place], [address] RDW SD Normal 35.1-43.9 [facility] Comment on above: Result Comment: Canc elled via OM: Order cancelled - Patient discharged Performed By: #### L 500.2500, L100.0100 ####[facility] [address] [place], [address] WBC Normal 4.4-11.0 [facility] Comment on above: Result Comment: Canc elled via OM: Order cancelled - Patient discharged Performed By: #### L 500.2500, L100.0100 ####[facility] [address] [place], [address] Basic Metabolic Profile (BMP )on 07-28-2025 BUN Normal -19 [facility] Comment on above: Result Comment: Canc elled via OM: Order cancelled - Patient discharged Performed By: #### L 500.2500, L100.0100 ####[facility] [address] [place], [address] BUN/CRE Normal -20 [facility] Comment on above: Result Comment: Canc elled via OM: Order cancelled - Patient discharged Performed By: #### L 500.2500, L100.0100 ####[facility] [address] [place], [address] Calcium Normal 7.6-11.0 [facility] Comment on above: Result Comment: Canc elled via OM: Order cancelled - Patient discharged Performed By: #### L 500.2500, L100.0100 ####[facility] [address] [place], [address] CL Normal 98-108 [facility] Comment on above: Result Comment: Canc elled via OM: Order cancelled - Patient discharged Performed By: #### L 500.2500, L100.0100 ####[facility] [address] [place], [address] CO2 Normal 21.0-32.0 [facility] Comment on above: Result Comment: Canc elled via OM: Order cancelled - Patient discharged Performed By: #### L 500.2500, L100.0100 ####[facility] [address] [place], [address] CREAT,SERUM Normal 0.70-1.20 [facility] Comment on above: Result Comment: Canc elled via OM: Order cancelled - Patient discharged Performed By: #### L 500.2500, L100.0100 ####[facility] [address] [place], [address] eGFR Normal >60 [facility] Comment on above: Result Comment: Canc elled via OM: Order cancelled - Patient discharged Performed By: #### L 500.2500, L100.0100 ####[facility] [address] [place], [address] GAP Normal 5-15 [facility] Comment on above: Result Comment: Canc elled via OM: Order cancelled - Patient discharged Performed By: #### L 500.2500, L100.0100 ####[facility] [address] [place], [address] GLU Normal 70-99 [facility] Comment on above: Result Comment: Canc elled via OM: Order cancelled - Patient discharged Performed By: #### L 500.2500, L100.0100 ####[facility] [address] [place], [address] Potassium Normal 3.3-5.1 [facility] Comment on above: Result Comment: Canc elled via OM: Order cancelled - Patient discharged Performed By: #### L 500.2500, L100.0100 ####[facility] [address] [place], [address] Basic Metabolic Profile (BMP) Normal 133-145 [facility] Comment on above: Result Comment: Canc elled via OM: Order cancelled - Patient discharged Performed By: #### L 500.2500, L100.0100 ####[facility] [address] [place], [address] CBC W/Diff, Automatedon 10-0 Absolute Neut Normal 2.0-7.7 [facility] Comment on above: Result Comment: Canc elled via OM: Order cancelled - Patient discharged Performed By: #### L 500.2500, L100.0100 ####[facility] [address] [place], [address] HCT Normal 37-47 [facility] Comment on above: Result Comment: Canc elled via OM: Order cancelled - Patient discharged Performed By: #### L 500.2500, L100.0100 ####[facility] [address] [place], [address] HGB Normal 12.0-15.0 [facility] Comment on above: Result Comment: Canc elled via OM: Order cancelled - Patient discharged Performed By: #### L 500.2500, L100.0100 ####[facility] [address] [place], [address] MCH Normal 27.0-32.0 [facility] Comment on above: Result Comment: Canc elled via OM: Order cancelled - Patient discharged Performed By: #### L 500.2500, L100.0100 ####[facility] [address] [place], [address] MCHC Normal 32-36 [facility] Comment on above: Result Comment: Canc elled via OM: Order cancelled - Patient discharged Performed By: #### L 500.2500, L100.0100 ####[facility] [address] [place], [address] MCV Normal 81-99 [facility] Comment on above: Result Comment: Canc elled via OM: Order cancelled - Patient discharged Performed By: #### L 500.2500, L100.0100 ####[facility] [address] [place], [address] NEUT% Normal 47-70 [facility] Comment on above: Result Comment: Canc elled via OM: Order cancelled - Patient discharged Performed By: #### L 500.2500, L100.0100 ####[facility] [address] [place], [address] PLT Normal 150-450 [facility] Comment on above: Result Comment: Canc elled via OM: Order cancelled - Patient discharged Performed By: #### L 500.2500, L100.0100 ####[facility] [address] [place], [address] RBC Normal 4.2-5.4 [facility] Comment on above: Result Comment: Canc elled via OM: Order cancelled - Patient discharged Performed By: #### L 500.2500, L100.0100 ####[facility] [address] [place], [address] RDW CV Normal 11.6-14.6 [facility] Comment on above: Result Comment: Canc elled via OM: Order cancelled - Patient discharged Performed By: #### L 500.2500, L100.0100 ####[facility] [address] [place], [address] RDW SD Normal 35.1-43.9 [facility] Comment on above: Result Comment: Canc elled via OM: Order cancelled - Patient discharged Performed By: #### L 500.2500, L100.0100 ####[facility] [address] [place], [address] WBC Normal 4.4-11.0 [facility] Comment on above: Result Comment: Canc elled via OM: Order cancelled - Patient discharged Performed By: #### L 500.2500, L100.0100 ####[facility] [address] [place], [address] Basic Metabolic Profile (BMP )on 07-27-2025 BUN Normal -19 [facility] Comment on above: Result Comment: Canc elled via OM: Order cancelled - Patient discharged Performed By: #### L 100.0100, L500.2500 ####[facility] [address] [place], [address] BUN/CRE Normal - [facility] Comment on above: Result Comment: Canc elled via OM: Order cancelled - Patient discharged Performed By: #### L 100.0100, L500.2500 ####[facility] [address] [place], [address] Calcium Normal 7.6-11.0 [facility] Comment on above: Result Comment: Canc elled via OM: Order cancelled - Patient discharged Performed By: #### L 100.0100, L500.2500 ####[facility] [address] [place], [address] CL Normal 98-108 [facility] Comment on above: Result Comment: Canc elled via OM: Order cancelled - Patient discharged Performed By: #### L 100.0100, L500.2500 ####[facility] [address] [place], [address] CO2 Normal 21.0-32.0 [facility] Comment on above: Result Comment: Canc elled via OM: Order cancelled - Patient discharged Performed By: #### L 100.0100, L500.2500 ####[facility] [address] [place], [address] CREAT,SERUM Normal 0.70-1.20 [facility] Comment on above: Result Comment: Canc elled via OM: Order cancelled - Patient discharged Performed By: #### L 100.0100, L500.2500 ####[facility] [address] [place], [address] eGFR Normal >60 [facility] Comment on above: Result Comment: Canc elled via OM: Order cancelled - Patient discharged Performed By: #### L 100.0100, L500.2500 ####[facility] [address] [place], [address] GAP Normal 5-15 [facility] Comment on above: Result Comment: Canc elled via OM: Order cancelled - Patient discharged Performed By: #### L 100.0100, L500.2500 ####[facility] [address] [place], [address] GLU Normal 70-99 [facility] Comment on above: Result Comment: Canc elled via OM: Order cancelled - Patient discharged Performed By: #### L 100.0100, L500.2500 ####[facility] [address] [place], [address] Potassium Normal 3.3-5.1 [facility] Comment on above: Result Comment: Canc elled via OM: Order cancelled - Patient discharged Performed By: #### L 100.0100, L500.2500 ####[facility] [address] [place], [address] Basic Metabolic Profile (BMP) Normal 133-145 [facility] Comment on above: Result Comment: Canc elled via OM: Order cancelled - Patient discharged Performed By: #### L 100.0100, L500.2500 ####[facility] [address] [place], [address] CBC W/Diff, Automatedon 10-0 5-2024 Absolute Neut Normal 2.0-7.7 [facility] Comment on above: Result Comment: Canc elled via OM: Order cancelled - Patient discharged Performed By: #### L 100.0100, L500.2500 ####[facility] [address] [place], [address] HCT Normal 37-47 [facility] Comment on above: Result Comment: Canc elled via OM: Order cancelled - Patient discharged Performed By: #### L 100.0100, L500.2500 ####[facility] [address] [place], [address] HGB Normal 12.0-15.0 [facility] Comment on above: Result Comment: Canc elled via OM: Order cancelled - Patient discharged Performed By: #### L 100.0100, L500.2500 ####[facility] [address] [place], [address] MCH Normal 27.0-32.0 [facility] Comment on above: Result Comment: Canc elled via OM: Order cancelled - Patient discharged Performed By: #### L 100.0100, L500.2500 ####[facility] [address] [place], [address] MCHC Normal 32-36 [facility] Comment on above: Result Comment: Canc elled via OM: Order cancelled - Patient discharged Performed By: #### L 100.0100, L500.2500 ####[facility] [address] [place], [address] MCV Normal 81-99 [facility] Comment on above: Result Comment: Canc elled via OM: Order cancelled - Patient discharged Performed By: #### L 100.0100, L500.2500 ####[facility] [address] [place], [address] NEUT% Normal 47-70 [facility] Comment on above: Result Comment: Canc elled via OM: Order cancelled - Patient discharged Performed By: #### L 100.0100, L500.2500 ####[facility] [address] [place], [address] PLT Normal 150-450 [facility] Comment on above: Result Comment: Canc elled via OM: Order cancelled - Patient discharged Performed By: #### L 100.0100, L500.2500 ####[facility] [address] [place], [address] RBC Normal 4.2-5.4 [facility] Comment on above: Result Comment: Canc elled via OM: Order cancelled - Patient discharged Performed By: #### L 100.0100, L500.2500 ####[facility] [address] [place], [address] RDW CV Normal 11.6-14.6 [facility] Comment on above: Result Comment: Canc elled via OM: Order cancelled - Patient discharged Performed By: #### L 100.0100, L500.2500 ####[facility] [address] [place], [address] RDW SD Normal 35.1-43.9 [facility] Comment on above: Result Comment: Canc elled via OM: Order cancelled - Patient discharged Performed By: #### L 100.0100, L500.2500 ####[facility] [address] [place], [address] WBC Normal 4.4-11.0 [facility] Comment on above: Result Comment: Canc elled via OM: Order cancelled - Patient discharged Performed By: #### L 100.0100, L500.2500 ####[facility] [address] [place], [address] Absolute lymphocyte countOrd ered By: Renee Encarnacion on 07-26-2025 Lymphocytes Auto (Unsp spec) [#/Vol] 2.80 10*3/uL 0.83-4.51 [facility] Anion gap in Serum or Plasma Ordered By: Renee Dominiquejennifer on 07-26-2025 Anion gap [Moles/Vol] 13 mmol/L 5-15 [facility] Automated lymphocyte count a s percentage of total leukocytesOrdered By: Renee Dominiquejennifer on 07-26-2025 Lymphocytes/100 WBC Auto (Unsp spec) 27.0 % 19-41 [facility] BUN/creatinine ratioOrdered By: Reneeteofilo Encarnacion on 07-26-2025 Urea nitrogen/Creatinine [Mass ratio] 30.2 mg/mg High 08-11 [facility] Basic Metabolic Profile (BMP )on 07-26-2025 BUN/CRE 30.2 RATIO High 08-11 [facility] Comment on above: Performed By: #### L 500.2500, L100.0100 ####[facility] [address] [place], [address] Calcium [Mass/Vol] 8.9 mg/dL Normal 7.6-11.0 [facility] Comment on above: Performed By: #### L 500.2500, L100.0100 ####[facility] [address] [place], [address] Chloride [Moles/Vol] 96 mmol/L Low 98-108 [facility] Comment on above: Performed By: #### L 500.2500, L100.0100 ####[facility] [address] [place], [address] CO2 [Moles/Vol] 25.7 mmol/L Normal 21.0-32.0 [facility] Comment on above: Performed By: #### L 500.2500, L100.0100 ####[facility] [address] [place], [address] Creatinine [Mass/Vol] 0.70 mg/dL Normal 0.70-1.20 [facility] Comment on above: Performed By: #### L 500.2500, L100.0100 ####[facility] [address] [place], [address] ECRCL 46.43 ml/min Low 50-250 [facility] Comment on above: Performed By: #### L 500.2500, L100.0100 ####[facility] [address] [place], [address] GAP 13 Normal 5-15 [facility] Comment on above: Performed By: #### L 500.2500, L100.0100 ####[facility] [address] [place], [address] GFR/1.73 sq M.predicted among non-blacks MDRD (S/P/Bld) [Vol rate/Area] 92 mL/min/{1.73_m2} Normal >60 [facility] Comment on above: Result Comment: mL/m in/1.73m2 CKD-EPI Creatinine Equation (2020) Performed By: #### L 500.2500, L100.0100 ####[facility] [address] [place], [address] Glucose [Mass/Vol] 98 mg/dL Normal 70-99 [facility] Comment on above: Performed By: #### L 500.2500, L100.0100 ####[facility] [address] [place], [address] Potassium [Moles/Vol] 2.8 mmol/L Low 3.3-5.1 [facility] Comment on above: Result Comment: Hemo lysis present, Results??could be affected.?? Performed By: #### L 500.2500, L100.0100 ####[facility] [address] [place], [address] Sodium [Moles/Vol] 135 mmol/L Normal 133-145 [facility] Comment on above: Performed By: #### L 500.2500, L100.0100 ####[facility] [address] [place], [address] Urea nitrogen [Mass/Vol] 21 mg/dL High 4-19 [facility] Comment on above: Performed By: #### L 500.2500, L100.0100 ####[facility] [address] [place], [address] Basophil percentageOrdered B y: Renee Encarnacion on 07-26-2025 Basophils/100 WBC (Bld) 0.1 % 0-1 [facility] Bedside Glucoseon 07-26-2025 [place] GLU 101 mg/dL Normal 74-106 [facility] Comment on above: Result Comment: CHERYL WILLS OF PATIENT CARE PER NURSING PROTOCOL Performed By: #### L 501.080 ####[facility] [address] [place], [address] CBC W/Diff, Automatedon 10-0 Absolute Lymph 2.80 X10 3/uL Normal 0.83-4.51 [facility] Comment on above: Performed By: #### L 500.2500, L100.0100 ####[facility] [address] [place], [address] Absolute Neut 6.2 X10 3/uL Normal 2.0-7.7 [facility] Comment on above: Performed By: #### L 500.2500, L100.0100 ####[facility] [address] [place], [address] Basophils/100 WBC (Bld) 0.1 % Normal 0-1 [facility] Comment on above: Performed By: #### L 500.2500, L100.0100 ####[facility] [address] [place], [address] Eosinophils/100 WBC (Bld) 0.9 % Normal 0-5 [facility] Comment on above: Performed By: #### L 500.2500, L100.0100 ####[facility] [address] [place], [address] Erythrocyte distribution width (RBC) [Ratio] 14.0 % Normal 11.6-14.6 [facility] Comment on above: Performed By: #### L 500.2500, L100.0100 ####[facility] [address] [place], [address] Hematocrit (Bld) [Volume fraction] 28.6 % Low 37-47 [facility] Comment on above: Performed By: #### L 500.2500, L100.0100 ####[facility] [address] [place], [address] Hemoglobin (Bld) [Mass/Vol] 9.6 g/dL Low 12.0-15.0 [facility] Comment on above: Performed By: #### L 500.2500, L100.0100 ####[facility] [address] [place], [address] IG% 2.900 High 0.0-0.9 [facility] Comment on above: Result Comment: IG% - Immature Granulocytes (promyelocytes, myelocytes andmetamyelocytes) > 1% indicates that a LEFT SHIFT is Present. Performed By: #### L 500.2500, L100.0100 ####[facility] [address] [place], [address] Lymphocytes/100 WBC (Bld) 27.0 % Normal 19-41 [facility] Comment on above: Performed By: #### L 500.2500, L100.0100 ####[facility] [address] [place], [address] MCH (RBC) [Entitic mass] 28.3 pg Normal 27.0-32.0 [facility] Comment on above: Performed By: #### L 500.2500, L100.0100 ####[facility] [address] [place], [address] MCHC (RBC) [Mass/Vol] 33.6 g/dL Normal 32-36 [facility] Comment on above: Performed By: #### L 500.2500, L100.0100 ####[facility] [address] [place], [address] MCV (RBC) [Entitic vol] 84.4 fL Normal 81-99 [facility] Comment on above: Performed By: #### L 500.2500, L100.0100 ####[facility] [address] [place], [address] Monocytes/100 WBC (Bld) 9.7 % Normal 0-10 [facility] Comment on above: Performed By: #### L 500.2500, L100.0100 ####[facility] [address] [place], [address] Neutrophils/100 WBC (Bld) 59.4 % Normal 47-70 [facility] Comment on above: Performed By: #### L 500.2500, L100.0100 ####[facility] [address] [place], [address] Nucleated RBC (Bld) [#/Vol] 0 10*3/uL Normal 0-5 [facility] Comment on above: Performed By: #### L 500.2500, L100.0100 ####[facility] [address] [place], [address] Platelet mean volume (Bld) [Entitic vol] 9.6 fL Normal 6.2-12.0 [facility] Comment on above: Performed By: #### L 500.2500, L100.0100 ####[facility] [address] [place], [address] Platelets (Bld) [#/Vol] 482 10*3/uL High 150-450 [facility] Comment on above: Performed By: #### L 500.2500, L100.0100 ####[facility] [address] [place], [address] RBC (Bld) [#/Vol] 3.39 10*6/uL Low 4.2-5.4 [facility] Comment on above: Performed By: #### L 500.2500, L100.0100 ####[facility] [address] [place], [address] RDW SD 43.3 fl Normal 35.1-43.9 [facility] Comment on above: Performed By: #### L 500.2500, L100.0100 ####[facility] [address] [place], [address] WBC (Bld) [#/Vol] 10.4 10*3/uL Normal 4.4-11.0 [facility] Comment on above: Performed By: #### L 500.2500, L100.0100 ####[facility] [address] [place], [address] Carbon dioxide, total [Moles /volume] in Central venous bloodOrdered By: Renee Encarnacion on 07-26-2025 CO2 [Moles/Vol] 25.7 mmol/L 21.0-32.0 [facility] Chloride assayOrdered By: Viki Encarnacion on 07-26-2025 Chloride [Moles/Vol] 96 mmol/L Low 98-108 [facility] Consultation - Cardiologyon 07-26-2025 Consultation - Cardiology Normal [facility] Eosinophil percentageOrdered By: Renee Encarnacion on 07-26-2025 Eosinophils/100 WBC (Bld) 0.9 % 0-5 [facility] Erythrocyte distribution wid th ratioOrdered By: Renee Encarnacion on 07-26-2025 Erythrocyte distribution width (RBC) [Ratio] 14.0 % 11.6-14.6 [facility] Erythrocyte distribution wid th standard deviationOrdered By: Renee Encarnacion on 07-26-2025 Erythrocyte distribution width (RBC) [Ratio] 43.3 fl 35.1-43.9 [facility] Glomerular filtration rate ( GFR) estimation/1.73 sq m using serum, plasma, or whole bOrdered By: Renee Encarnacion on 07-26-2025 GFR/1.73 sq M.predicted among non-blacks MDRD (S/P/Bld) [Vol rate/Area] 92 mL/min/{1.73_m2} >60 [facility] Gl[place] [facility] deOrdered By: Renee Encarnacion on 07-26-2025 Glucose [Mass/Vol] 101 mg/dL 74-106 [facility] Hematocrit Auto (Bld) [Volum e fraction]Ordered By: Reneeteofilo Encarnacion on 07-26-2025 Hematocrit (Bld) [Volume fraction] 28.6 % Low 37-47 [facility] Hemoglobin measurementOrdere d By: Renee Encarnacion on 07-26-2025 Hemoglobin (Bld) [Mass/Vol] 9.6 g/dL Low 12.0-15.0 [facility] Immature granulocytes/100 WB C Auto (Bld)Ordered By: Reneeteofilo Encarnacion on 07-26-2025 Immature granulocytes/100 WBC (Bld) 2.900 % High 0.0-0.9 [facility] MCV (mean corpuscular volume ) determinationOrdered By: Renee Encarnacion on 07-26-2025 MCV (RBC) [Entitic vol] 84.4 fL 81-99 [facility] Magnesiumon 07-26-2025 Magnesium [Mass/Vol] 2.2 mg/dL Normal 1.5-2.2 [facility] Comment on above: Performed By: #### L 501.5200 ####[facility] [address] [place], [address] Magnesium measurement (mass/ volume)Ordered By: Renee Encarnacion on 07-26-2025 Magnesium (Unsp spec) [Mass/Vol] 2.2 mg/dL 1.5-2.2 [facility] Mean corpuscular hemoglobin (MCH) determinationOrdered By: Renee Encarnacion on 07-26-2025 MCH (RBC) [Entitic mass] 28.3 pg 27.0-32.0 [facility] Monocyte percentageOrdered B y: Renee Alysha on 07-26-2025 Monocytes/100 WBC (Bld) 9.7 % 0-10 [facility] Neutrophil percentageOrdered By: Renee Encarnacion on 07-26-2025 Neutrophils/100 WBC (Bld) 59.4 % 47-70 [facility] Platelet countOrdered By: Viki Encarnacion on 07-26-2025 Platelets (Bld) [#/Vol] 482 10*3/uL High 150-450 [facility] Potassium measurement (mass/ volume)Ordered By: Renee Encarnacion on 07-26-2025 Potassium (Unsp spec) [Mass/Vol] 2.8 mmol/L Low 3.3-5.1 [facility] RBC Auto (Bld) [#/Vol]Ordere d By: Renee Encarnacion on 07-26-2025 RBC (Bld) [#/Vol] 3.39 10*6/uL Low 4.2-5.4 [facility] Serum creatinine measurement (mass/volume)Ordered By: Renee Encarnacion on 07-26-2025 Creatinine [Mass/Vol] 0.70 mg/dL 0.70-1.20 [facility] Serum glucose measurement (m ass/volume)Ordered By: Renee Encarnacion on 07-26-2025 Glucose [Mass/Vol] 98 mg/dL 70-99 [facility] Serum or plasma calcium erik urement (mass/volume)Ordered By: Renee Encarnacion on 07-26-2025 Calcium [Mass/Vol] 8.9 mg/dL 7.6-11.0 [facility] Serum or plasma urea nitroge n measurement (mass/volume)Ordered By: Renee Encarnacion on 07-26-2025 Urea nitrogen [Mass/Vol] 21 mg/dL High 4-19 [facility] Sodium levelOrdered By: Renee Encarnacion on 07-26-2025 Sodium [Moles/Vol] 135 mmol/L 133-145 [facility] White blood cell (WBC) count Ordered By: Renee Encarnacion on 07-26-2025 WBC (Bld) [#/Vol] 10.4 10*3/uL 4.4-11.0 [facility] Basic Metabolic Profile (BMP )on 07-25-2025 BUN/CRE 36.1 RATIO High 10-20 [facility] Comment on above: Performed By: #### L 100.0100, L500.2500 ####[facility] [address] [place], [address] Calcium [Mass/Vol] 8.7 mg/dL Normal 7.6-11.0 [facility] Comment on above: Performed By: #### L 100.0100, L500.2500 ####[facility] [address] [place], [address] Chloride [Moles/Vol] 98 mmol/L Normal 98-108 [facility] Comment on above: Performed By: #### L 100.0100, L500.2500 ####[facility] [address] [place], [address] CO2 [Moles/Vol] 26.7 mmol/L Normal 21.0-32.0 [facility] Comment on above: Performed By: #### L 100.0100, L500.2500 ####[facility] [address] [place], [address] Creatinine [Mass/Vol] 0.70 mg/dL Normal 0.70-1.20 [facility] Comment on above: Performed By: #### L 100.0100, L500.2500 ####[facility] [address] [place], [address] ECRCL 46.84 ml/min Low 50-250 [facility] Comment on above: Performed By: #### L 100.0100, L500.2500 ####[facility] [address] [place], [address] GAP 12 Normal 5-15 [facility] Comment on above: Performed By: #### L 100.0100, L500.2500 ####[facility] [address] [place], [address] GFR/1.73 sq M.predicted among non-blacks MDRD (S/P/Bld) [Vol rate/Area] 92 mL/min/{1.73_m2} Normal >60 [facility] Comment on above: Result Comment: mL/m in/1.73m2 CKD-EPI Creatinine Equation (2020) Performed By: #### L 100.0100, L500.2500 ####[facility] [address] [place], [address] Glucose [Mass/Vol] 102 mg/dL High 70-99 [facility] Comment on above: Performed By: #### L 100.0100, L500.2500 ####[facility] [address] [place], [address] Potassium [Moles/Vol] 3.0 mmol/L Low 3.3-5.1 [facility] Comment on above: Performed By: #### L 100.0100, L500.2500 ####[facility] [address] [place], [address] Sodium [Moles/Vol] 137 mmol/L Normal 133-145 [facility] Comment on above: Performed By: #### L 100.0100, L500.2500 ####[facility] [address] [place], [address] Urea nitrogen [Mass/Vol] 25 mg/dL High 4-19 [facility] Comment on above: Performed By: #### L 100.0100, L500.2500 ####[facility] [address] [place], [address] Bedside Glucoseon 07-25-2025 FINGERSTICK GLU 114 mg/dL High 74-106 [facility] Comment on above: Result Comment: CHERYL WILLS OF PATIENT CARE PER NURSING PROTOCOL Performed By: #### L 501.080 ####[facility] [address] [place], [address] FINGERSTICK GLU 163 mg/dL High 74-106 [facility] Comment on above: Result Comment: CHERYL GEMENT OF PATIENT CARE PER NURSING PROTOCOL Performed By: #### L 501.080 ####[facility] [address] [place], [address] FINGERSTICK GLU 129 mg/dL High 74-106 [facility] Comment on above: Result Comment: CHERYL GEMENT OF PATIENT CARE PER NURSING PROTOCOL Performed By: #### L 501.080 ####[facility] [address] [place], [address] FINGERSTICK GLU 111 mg/dL High 74-106 [facility] Comment on above: Result Comment: CHERYL GEMENT OF PATIENT CARE PER NURSING PROTOCOL Performed By: #### L 501.080 ####[facility] [address] [place], [address] CBC W/Diff, Automatedon 10-0 3-2025 Absolute Lymph 2.65 X10 3/uL Normal 0.83-4.51 [facility] Comment on above: Performed By: #### L 100.0100, L500.2500 ####[facility] [address] [place], [address] Absolute Neut 6.4 X10 3/uL Normal 2.0-7.7 [facility] Comment on above: Performed By: #### L 100.0100, L500.2500 ####[facility] [address] [place], [address] Basophils/100 WBC (Bld) 0.2 % Normal 0-1 [facility] Comment on above: Performed By: #### L 100.0100, L500.2500 ####[facility] [address] [place], [address] Eosinophils/100 WBC (Bld) 1.1 % Normal 0-5 [facility] Comment on above: Performed By: #### L 100.0100, L500.2500 ####[facility] [address] [place], [address] Erythrocyte distribution width (RBC) [Ratio] 13.9 % Normal 11.6-14.6 [facility] Comment on above: Performed By: #### L 100.0100, L500.2500 ####[facility] [address] [place], [address] Hematocrit (Bld) [Volume fraction] 29.8 % Low 37-47 [facility] Comment on above: Performed By: #### L 100.0100, L500.2500 ####[facility] [address] [place], [address] Hemoglobin (Bld) [Mass/Vol] 9.9 g/dL Low 12.0-15.0 [facility] Comment on above: Performed By: #### L 100.0100, L500.2500 ####[facility] [address] [place], [address] IG% 1.800 High 0.0-0.9 [facility] Comment on above: Result Comment: IG% - Immature Granulocytes (promyelocytes, myelocytes andmetamyelocytes) > 1% indicates that a LEFT SHIFT is Present. Performed By: #### L 100.0100, L500.2500 ####[facility] [address] [place], [address] Lymphocytes/100 WBC (Bld) 25.5 % Normal 19-41 [facility] Comment on above: Performed By: #### L 100.0100, L500.2500 ####[facility] [address] [place], [address] MCH (RBC) [Entitic mass] 28.7 pg Normal 27.0-32.0 [facility] Comment on above: Performed By: #### L 100.0100, L500.2500 ####[facility] [address] [place], [address] MCHC (RBC) [Mass/Vol] 33.2 g/dL Normal 32-36 [facility] Comment on above: Performed By: #### L 100.0100, L500.2500 ####[facility] [address] [place], [address] MCV (RBC) [Entitic vol] 86.4 fL Normal 81-99 [facility] Comment on above: Performed By: #### L 100.0100, L500.2500 ####[facility] [address] [place], [address] Monocytes/100 WBC (Bld) 10.5 % High 0-10 [facility] Comment on above: Performed By: #### L 100.0100, L500.2500 ####[facility] [address] [place], [address] Neutrophils/100 WBC (Bld) 60.9 % Normal 47-70 [facility] Comment on above: Performed By: #### L 100.0100, L500.2500 ####[facility] [address] [place], [address] Nucleated RBC (Bld) [#/Vol] 0 10*3/uL Normal 0-5 [facility] Comment on above: Performed By: #### L 100.0100, L500.2500 ####[facility] [address] [place], [address] Platelet mean volume (Bld) [Entitic vol] 9.5 fL Normal 6.2-12.0 [facility] Comment on above: Performed By: #### L 100.0100, L500.2500 ####[facility] [address] [place], [address] Platelets (Bld) [#/Vol] 499 10*3/uL High 150-450 [facility] Comment on above: Performed By: #### L 100.0100, L500.2500 ####[facility] [address] [place], [address] RBC (Bld) [#/Vol] 3.45 10*6/uL Low 4.2-5.4 [facility] Comment on above: Performed By: #### L 100.0100, L500.2500 ####[facility] [address] [place], [address] RDW SD 43.7 fl Normal 35.1-43.9 [facility] Comment on above: Performed By: #### L 100.0100, L500.2500 ####[facility] [address] [place], [address] WBC (Bld) [#/Vol] 10.4 10*3/uL Normal 4.4-11.0 [facility] Comment on above: Performed By: #### L 100.0100, L500.2500 ####[facility] [address] [place], [address] CTA Chest W/WO Contraston CTA Chest W/WO Contrast Normal [facility] D-Dimer Quantitative (DVT/PE )on 07-25-2025 D-DIMER QUANT 1.10 FEU/ug/m Invalid Interpretation Code 0.27-0.49 [facility] Comment on above: Result Comment: D-Di adri ELEVATED (>0.49): Additional studies and clinicalassessments are indicated to conclude diagnosis of:Deep Vein Thrombosis (DVT) or Pulmonary EmbolismCRITICAL VALUE CALLED TO RADHA VIRK07/25/25 Yokasta Pratt.RESULTS READ BACK BY SAME. Performed By: #### L 300.8000 ####[facility] [address] [place], [address] Basic Metabolic Profile (BMP )on 07-24-2025 BUN/CRE 41.8 RATIO High 10-20 [facility] Comment on above: Performed By: #### L 100.0100, L500.2500 ####[facility] [address] [place], [address] Calcium [Mass/Vol] 8.8 mg/dL Normal 7.6-11.0 [facility] Comment on above: Performed By: #### L 100.0100, L500.2500 ####[facility] [address] [place], [address] Chloride [Moles/Vol] 97 mmol/L Low 98-108 [facility] Comment on above: Performed By: #### L 100.0100, L500.2500 ####[facility] [address] [place], [address] CO2 [Moles/Vol] 25.1 mmol/L Normal 21.0-32.0 [facility] Comment on above: Performed By: #### L 100.0100, L500.2500 ####[facility] [address] [place], [address] Creatinine [Mass/Vol] 0.85 mg/dL Normal 0.70-1.20 [facility] Comment on above: Performed By: #### L 100.0100, L500.2500 ####[facility] [address] [place], [address] ECRCL 45.04 ml/min Low 50-250 [facility] Comment on above: Performed By: #### L 100.0100, L500.2500 ####[facility] [address] [place], [address] GAP 12 Normal 5-15 [facility] Comment on above: Performed By: #### L 100.0100, L500.2500 ####[facility] [address] [place], [address] GFR/1.73 sq M.predicted among non-blacks MDRD (S/P/Bld) [Vol rate/Area] 73 mL/min/{1.73_m2} Normal >60 [facility] Comment on above: Result Comment: mL/m in/1.73m2 CKD-EPI Creatinine Equation (2020) Performed By: #### L 100.0100, L500.2500 ####[facility] [address] [place], [address] Glucose [Mass/Vol] 102 mg/dL High 70-99 [facility] Comment on above: Performed By: #### L 100.0100, L500.2500 ####[facility] [address] [place], [address] Potassium [Moles/Vol] 3.1 mmol/L Low 3.3-5.1 [facility] Comment on above: Performed By: #### L 100.0100, L500.2500 ####[facility] [address] [place], [address] Sodium [Moles/Vol] 135 mmol/L Normal 133-145 [facility] Comment on above: Performed By: #### L 100.0100, L500.2500 ####[facility] [address] [place], [address] Urea nitrogen [Mass/Vol] 36 mg/dL High 4-19 [facility] Comment on above: Performed By: #### L 100.0100, L500.2500 ####[facility] [address] [place], [address] Bedside Glucoseon 07-24-2025 FINGERSTICK GLU 193 mg/dL High 74-106 [facility] Comment on above: Result Comment: CHERYL WILLS OF PATIENT CARE PER NURSING PROTOCOL Performed By: #### L 501.080 ####[facility] [address] [place], [address] FINGERSTICK GLU 135 mg/dL High 74-106 [facility] Comment on above: Result Comment: CHERYL GEMENT OF PATIENT CARE PER NURSING PROTOCOL Performed By: #### L 501.080 ####[facility] [address] [place], [address] FINGERSTICK GLU 138 mg/dL High 74-106 [facility] Comment on above: Result Comment: CHERYL GEMENT OF PATIENT CARE PER NURSING PROTOCOL Performed By: #### L 501.080 ####[facility] [address] [place], [address] FINGERSTICK GLU 97 mg/dL Normal 74-106 [facility] Comment on above: Result Comment: CHERYL GEMENT OF PATIENT CARE PER NURSING PROTOCOL Performed By: #### L 501.080 ####[facility] [address] [place], [address] CBC W/Diff, Automatedon 10-0 2-5 Absolute Lymph 2.58 X10 3/uL Normal 0.83-4.51 [facility] Comment on above: Performed By: #### L 100.0100, L500.2500 ####[facility] [address] [place], [address] Absolute Neut 5.9 X10 3/uL Normal 2.0-7.7 [facility] Comment on above: Performed By: #### L 100.0100, L500.2500 ####[facility] [address] [place], [address] Basophils/100 WBC (Bld) 0.1 % Normal 0-1 [facility] Comment on above: Performed By: #### L 100.0100, L500.2500 ####[facility] [address] [place], [address] Eosinophils/100 WBC (Bld) 0.6 % Normal 0-5 [facility] Comment on above: Performed By: #### L 100.0100, L500.2500 ####[facility] [address] [place], [address] Erythrocyte distribution width (RBC) [Ratio] 14.4 % Normal 11.6-14.6 [facility] Comment on above: Performed By: #### L 100.0100, L500.2500 ####[facility] [address] [place], [address] Hematocrit (Bld) [Volume fraction] 31.8 % Low 37-47 [facility] Comment on above: Performed By: #### L 100.0100, L500.2500 ####[facility] [address] [place], [address] Hemoglobin (Bld) [Mass/Vol] 10.5 g/dL Low 12.0-15.0 [facility] Comment on above: Performed By: #### L 100.0100, L500.2500 ####[facility] [address] [place], [address] IG% 1.700 High 0.0-0.9 [facility] Comment on above: Result Comment: IG% - Immature Granulocytes (promyelocytes, myelocytes andmetamyelocytes) > 1% indicates that a LEFT SHIFT is Present. Performed By: #### L 100.0100, L500.2500 ####[facility] [address] [place], [address] Lymphocytes/100 WBC (Bld) 26.7 % Normal 19-41 [facility] Comment on above: Performed By: #### L 100.0100, L500.2500 ####[facility] [address] [place], [address] MCH (RBC) [Entitic mass] 28.7 pg Normal 27.0-32.0 [facility] Comment on above: Performed By: #### L 100.0100, L500.2500 ####[facility] [address] [place], [address] MCHC (RBC) [Mass/Vol] 33.0 g/dL Normal 32-36 [facility] Comment on above: Performed By: #### L 100.0100, L500.2500 ####[facility] [address] [place], [address] MCV (RBC) [Entitic vol] 86.9 fL Normal 81-99 [facility] Comment on above: Performed By: #### L 100.0100, L500.2500 ####[facility] [address] [place], [address] Monocytes/100 WBC (Bld) 10.0 % Normal 0-10 [facility] Comment on above: Performed By: #### L 100.0100, L500.2500 ####[facility] [address] [place], [address] Neutrophils/100 WBC (Bld) 60.9 % Normal 47-70 [facility] Comment on above: Performed By: #### L 100.0100, L500.2500 ####[facility] [address] [place], [address] Nucleated RBC (Bld) [#/Vol] 0 10*3/uL Normal 0-5 [facility] Comment on above: Performed By: #### L 100.0100, L500.2500 ####[facility] [address] [place], [address] Platelet mean volume (Bld) [Entitic vol] 8.9 fL Normal 6.2-12.0 [facility] Comment on above: Performed By: #### L 100.0100, L500.2500 ####[facility] [address] [place], [address] Platelets (Bld) [#/Vol] 464 10*3/uL High 150-450 [facility] Comment on above: Performed By: #### L 100.0100, L500.2500 ####[facility] [address] [place], [address] RBC (Bld) [#/Vol] 3.66 10*6/uL Low 4.2-5.4 [facility] Comment on above: Performed By: #### L 100.0100, L500.2500 ####[facility] [address] [place], [address] RDW SD 45.8 fl High 35.1-43.9 [facility] Comment on above: Performed By: #### L 100.0100, L500.2500 ####[facility] [address] [place], [address] WBC (Bld) [#/Vol] 9.7 10*3/uL Normal 4.4-11.0 [facility] Comment on above: Performed By: #### L 100.0100, L500.2500 ####[facility] [address] [place], [address] Basic Metabolic Profile (BMP )on 07-23-2025 BUN/CRE 33.7 RATIO High 10-20 [facility] Comment on above: Performed By: #### L 100.0100, L500.2500 ####[facility] [address] [place], [address] Calcium [Mass/Vol] 8.9 mg/dL Normal 7.6-11.0 [facility] Comment on above: Performed By: #### L 100.0100, L500.2500 ####[facility] [address] [place], [address] Chloride [Moles/Vol] 101 mmol/L Normal 98-108 [facility] Comment on above: Performed By: #### L 100.0100, L500.2500 ####[facility] [address] [place], [address] CO2 [Moles/Vol] 25.7 mmol/L Normal 21.0-32.0 [facility] Comment on above: Performed By: #### L 100.0100, L500.2500 ####[facility] [address] [place], [address] Creatinine [Mass/Vol] 0.68 mg/dL Low 0.70-1.20 [facility] Comment on above: Performed By: #### L 100.0100, L500.2500 ####[facility] [address] [place], [address] ECRCL 51.62 ml/min Normal 50-250 [facility] Comment on above: Performed By: #### L 100.0100, L500.2500 ####[facility] [address] [place], [address] GAP 13 Normal 5-15 [facility] Comment on above: Performed By: #### L 100.0100, L500.2500 ####[facility] [address] [place], [address] GFR/1.73 sq M.predicted among non-blacks MDRD (S/P/Bld) [Vol rate/Area] 93 mL/min/{1.73_m2} Normal >60 [facility] Comment on above: Result Comment: mL/m in/1.73m2 CKD-EPI Creatinine Equation (2020) Performed By: #### L 100.0100, L500.2500 ####[facility] [address] [place], [address] Glucose [Mass/Vol] 133 mg/dL High 70-99 [facility] Comment on above: Performed By: #### L 100.0100, L500.2500 ####[facility] [address] [place], [address] Potassium [Moles/Vol] 2.9 mmol/L Low 3.3-5.1 [facility] Comment on above: Performed By: #### L 100.0100, L500.2500 ####[facility] [address] [place], [address] Sodium [Moles/Vol] 140 mmol/L Normal 133-145 [facility] Comment on above: Performed By: #### L 100.0100, L500.2500 ####[facility] [address] [place], [address] Urea nitrogen [Mass/Vol] 23 mg/dL High 4-19 [facility] Comment on above: Performed By: #### L 100.0100, L500.2500 ####[facility] [address] [place], [address] Bedside Glucoseon 07-23-2025 FINGERSTICK GLU 129 mg/dL High 74-106 [facility] Comment on above: Result Comment: CHERYL GEMENT OF PATIENT CARE PER NURSING PROTOCOL Performed By: #### L 501.080 ####[facility] [address] [place], [address] FINGERSTICK GLU 123 mg/dL High 74-106 [facility] Comment on above: Result Comment: CHERYL GEMENT OF PATIENT CARE PER NURSING PROTOCOL Performed By: #### L 501.080 ####[facility] [address] [place], [address] FINGERSTICK GLU 137 mg/dL High 74-106 [facility] Comment on above: Result Comment: CHERYL GEMENT OF PATIENT CARE PER NURSING PROTOCOL Performed By: #### L 501.080 ####[facility] [address] [place], [address] CBC W/Diff, Automatedon 10-0 Absolute Lymph 1.95 X10 3/uL Normal 0.83-4.51 [facility] Comment on above: Performed By: #### L 100.0100, L500.2500 ####[facility] [address] [place], [address] Absolute Neut 7.6 X10 3/uL Normal 2.0-7.7 [facility] Comment on above: Performed By: #### L 100.0100, L500.2500 ####[facility] [address] [place], [address] Basophils/100 WBC (Bld) 0.1 % Normal 0-1 [facility] Comment on above: Performed By: #### L 100.0100, L500.2500 ####[facility] [address] [place], [address] Eosinophils/100 WBC (Bld) 0.1 % Normal 0-5 [facility] Comment on above: Performed By: #### L 100.0100, L500.2500 ####[facility] [address] [place], [address] Erythrocyte distribution width (RBC) [Ratio] 15.0 % High 11.6-14.6 [facility] Comment on above: Performed By: #### L 100.0100, L500.2500 ####[facility] [address] [place], [address] Hematocrit (Bld) [Volume fraction] 29.6 % Low 37-47 [facility] Comment on above: Performed By: #### L 100.0100, L500.2500 ####[facility] [address] [place], [address] Hemoglobin (Bld) [Mass/Vol] 9.9 g/dL Low 12.0-15.0 [facility] Comment on above: Performed By: #### L 100.0100, L500.2500 ####[facility] [address] [place], [address] IG% 2.000 High 0.0-0.9 [facility] Comment on above: Result Comment: IG% - Immature Granulocytes (promyelocytes, myelocytes andmetamyelocytes) > 1% indicates that a LEFT SHIFT is Present. Performed By: #### L 100.0100, L500.2500 ####[facility] [address] [place], [address] Lymphocytes/100 WBC (Bld) 17.3 % Low 19-41 [facility] Comment on above: Performed By: #### L 100.0100, L500.2500 ####[facility] [address] [place], [address] MCH (RBC) [Entitic mass] 29.0 pg Normal 27.0-32.0 [facility] Comment on above: Performed By: #### L 100.0100, L500.2500 ####[facility] [address] [place], [address] MCHC (RBC) [Mass/Vol] 33.4 g/dL Normal 32-36 [facility] Comment on above: Performed By: #### L 100.0100, L500.2500 ####[facility] [address] [place], [address] MCV (RBC) [Entitic vol] 86.8 fL Normal 81-99 [facility] Comment on above: Performed By: #### L 100.0100, L500.2500 ####[facility] [address] [place], [address] Monocytes/100 WBC (Bld) 13.0 % High 0-10 [facility] Comment on above: Performed By: #### L 100.0100, L500.2500 ####[facility] [address] [place], [address] Neutrophils/100 WBC (Bld) 67.5 % Normal 47-70 [facility] Comment on above: Performed By: #### L 100.0100, L500.2500 ####[facility] [address] [place], [address] Nucleated RBC (Bld) [#/Vol] 0 10*3/uL Normal 0-5 [facility] Comment on above: Performed By: #### L 100.0100, L500.2500 ####[facility] [address] [place], [address] Platelet mean volume (Bld) [Entitic vol] 9.3 fL Normal 6.2-12.0 [facility] Comment on above: Performed By: #### L 100.0100, L500.2500 ####[facility] [address] [place], [address] Platelets (Bld) [#/Vol] 436 10*3/uL Normal 150-450 [facility] Comment on above: Performed By: #### L 100.0100, L500.2500 ####[facility] [address] [place], [address] RBC (Bld) [#/Vol] 3.41 10*6/uL Low 4.2-5.4 [facility] Comment on above: Performed By: #### L 100.0100, L500.2500 ####[facility] [address] [place], [address] RDW SD 47.5 fl High 35.1-43.9 [facility] Comment on above: Performed By: #### L 100.0100, L500.2500 ####[facility] [address] [place], [address] WBC (Bld) [#/Vol] 11.3 10*3/uL High 4.4-11.0 [facility] Comment on above: Performed By: #### L 100.0100, L500.2500 ####[facility] [address] [place], [address] Magnesiumon 07-23-2025 Magnesium [Mass/Vol] 2.3 mg/dL High 1.5-2.2 [facility] Comment on above: Performed By: #### L 501.5200 ####[facility] [address] [place], [address] Absolute lymphocyte countOrd ered By: Renee Alysha on 07-22-2025 Lymphocytes Auto (Unsp spec) [#/Vol] 1.00 10*3/uL 0.83-4.51 [facility] Anion gap in Serum or Plasma Ordered By: Renee Encarnacion on 07-22-2025 Anion gap [Moles/Vol] 14 mmol/L 5-15 [facility] Automated lymphocyte count a s percentage of total leukocytesOrdered By: Reneeteofilo Encarnacion on 07-22-2025 Lymphocytes/100 WBC Auto (Unsp spec) 8.4 % Low 19-41 [facility] BUN/creatinine ratioOrdered By: Renee Encarnacion on 07-22-2025 Urea nitrogen/Creatinine [Mass ratio] 39.5 mg/mg High 10-20 [facility] Basic Metabolic Profile (BMP )on 07-22-2025 BUN/CRE 39.5 RATIO High - [facility] Comment on above: Performed By: #### L 100.0100, L500.2500 ####[facility] [address] [place], [address] Calcium [Mass/Vol] 8.3 mg/dL Normal 7.6-11.0 [facility] Comment on above: Performed By: #### L 100.0100, L500.2500 ####[facility] [address] [place], [address] Chloride [Moles/Vol] 106 mmol/L Normal 98-108 [facility] Comment on above: Performed By: #### L 100.0100, L500.2500 ####[facility] [address] [place], [address] CO2 [Moles/Vol] 22.3 mmol/L Normal 21.0-32.0 [facility] Comment on above: Performed By: #### L 100.0100, L500.2500 ####[facility] [address] [place], [address] Creatinine [Mass/Vol] 0.76 mg/dL Normal 0.70-1.20 [facility] Comment on above: Performed By: #### L 100.0100, L500.2500 ####[facility] [address] [place], [address] ECRCL 52.85 ml/min Normal 50-250 [facility] Comment on above: Performed By: #### L 100.0100, L500.2500 ####[facility] [address] [place], [address] GAP 14 Normal 5-15 [facility] Comment on above: Performed By: #### L 100.0100, L500.2500 ####[facility] [address] [place], [address] GFR/1.73 sq M.predicted among non-blacks MDRD (S/P/Bld) [Vol rate/Area] 84 mL/min/{1.73_m2} Normal >60 [facility] Comment on above: Result Comment: mL/m in/1.73m2 CKD-EPI Creatinine Equation (2020) Performed By: #### L 100.0100, L500.2500 ####[facility] [address] [place], [address] Glucose [Mass/Vol] 160 mg/dL High 70-99 [facility] Comment on above: Performed By: #### L 100.0100, L500.2500 ####[facility] [address] [place], [address] Potassium [Moles/Vol] 3.2 mmol/L Low 3.3-5.1 [facility] Comment on above: Performed By: #### L 100.0100, L500.2500 ####[facility] [address] [place], [address] Sodium [Moles/Vol] 142 mmol/L Normal 133-145 [facility] Comment on above: Performed By: #### L 100.0100, L500.2500 ####[facility] [address] [place], [address] Urea nitrogen [Mass/Vol] 30 mg/dL High 4-19 [facility] Comment on above: Performed By: #### L 100.0100, L500.2500 ####[facility] [address] [place], [address] Basophil percentageOrdered B y: Renee Encarnacion on 07-22-2025 Basophils/100 WBC (Bld) 0.3 % 0-1 [facility] Bedside Glucoseon 07-22-2025 FINGERSTICK GLU 136 mg/dL High 74-106 [facility] Comment on above: Result Comment: CHERYL GEMENT OF PATIENT CARE PER NURSING PROTOCOL Performed By: #### L 501.080 ####[facility] [address] [place], [address] FINGERSTICK GLU 233 mg/dL High 74-106 [facility] Comment on above: Result Comment: CHEYRL GEMENT OF PATIENT CARE PER NURSING PROTOCOL Performed By: #### L 501.080 ####[facility] [address] [place], [address] FINGERSTICK GLU 174 mg/dL High 74-106 [facility] Comment on above: Result Comment: CHERYL GEMENT OF PATIENT CARE PER NURSING PROTOCOL Performed By: #### L 501.080 ####[facility] [address] [place], [address] FINGERSTICK GLU 169 mg/dL High 74-106 [facility] Comment on above: Result Comment: CHERYL GEMENT OF PATIENT CARE PER NURSING PROTOCOL Performed By: #### L 501.080 ####[facility] [address] [place], [address] CBC W/Diff, Automatedon 09-3 0-2025 Absolute Lymph 1.00 X10 3/uL Normal 0.83-4.51 [facility] Comment on above: Performed By: #### L 100.0100, L500.2500 ####[facility] [address] [place], [address] Absolute Neut 10.0 X10 3/uL High 2.0-7.7 [facility] Comment on above: Performed By: #### L 100.0100, L500.2500 ####[facility] [address] [place], [address] Basophils/100 WBC (Bld) 0.3 % Normal 0-1 [facility] Comment on above: Performed By: #### L 100.0100, L500.2500 ####[facility] [address] [place], [address] Eosinophils/100 WBC (Bld) 0.0 % Normal 0-5 [facility] Comment on above: Performed By: #### L 100.0100, L500.2500 ####[facility] [address] [place], [address] Erythrocyte distribution width (RBC) [Ratio] 15.3 % High 11.6-14.6 [facility] Comment on above: Performed By: #### L 100.0100, L500.2500 ####[facility] [address] [place], [address] Hematocrit (Bld) [Volume fraction] 32.9 % Low 37-47 [facility] Comment on above: Performed By: #### L 100.0100, L500.2500 ####[facility] [address] [place], [address] Hemoglobin (Bld) [Mass/Vol] 10.7 g/dL Low 12.0-15.0 [facility] Comment on above: Performed By: #### L 100.0100, L500.2500 ####[facility] [address] [place], [address] IG% 2.500 High 0.0-0.9 [facility] Comment on above: Result Comment: IG% - Immature Granulocytes (promyelocytes, myelocytes andmetamyelocytes) > 1% indicates that a LEFT SHIFT is Present. Performed By: #### L 100.0100, L500.2500 ####[facility] [address] [place], [address] Lymphocytes/100 WBC (Bld) 8.4 % Low 19-41 [facility] Comment on above: Performed By: #### L 100.0100, L500.2500 ####[facility] [address] [place], [address] MCH (RBC) [Entitic mass] 28.8 pg Normal 27.0-32.0 [facility] Comment on above: Performed By: #### L 100.0100, L500.2500 ####[facility] [address] [place], [address] MCHC (RBC) [Mass/Vol] 32.5 g/dL Normal 32-36 [facility] Comment on above: Performed By: #### L 100.0100, L500.2500 ####[facility] [address] [place], [address] MCV (RBC) [Entitic vol] 88.7 fL Normal 81-99 [facility] Comment on above: Performed By: #### L 100.0100, L500.2500 ####[facility] [address] [place], [address] Monocytes/100 WBC (Bld) 4.1 % Normal 0-10 [facility] Comment on above: Performed By: #### L 100.0100, L500.2500 ####[facility] [address] [place], [address] Neutrophils/100 WBC (Bld) 84.7 % High 47-70 [facility] Comment on above: Performed By: #### L 100.0100, L500.2500 ####[facility] [address] [place], [address] Nucleated RBC (Bld) [#/Vol] 0 10*3/uL Normal 0-5 [facility] Comment on above: Performed By: #### L 100.0100, L500.2500 ####[facility] [address] [place], [address] Platelet mean volume (Bld) [Entitic vol] 9.5 fL Normal 6.2-12.0 [facility] Comment on above: Performed By: #### L 100.0100, L500.2500 ####[facility] [address] [place], [address] Platelets (Bld) [#/Vol] 452 10*3/uL High 150-450 [facility] Comment on above: Performed By: #### L 100.0100, L500.2500 ####[facility] [address] [place], [address] RBC (Bld) [#/Vol] 3.71 10*6/uL Low 4.2-5.4 [facility] Comment on above: Performed By: #### L 100.0100, L500.2500 ####[facility] [address] [place], [address] RDW SD 49.1 fl High 35.1-43.9 [facility] Comment on above: Performed By: #### L 100.0100, L500.2500 ####[facility] [address] [place], [address] WBC (Bld) [#/Vol] 11.8 10*3/uL High 4.4-11.0 [facility] Comment on above: Performed By: #### L 100.0100, L500.2500 ####[facility] [address] [place], [address] Carbon dioxide, total [Moles /volume] in Central venous bloodOrdered By: Renee Encarnacion on 07-22-2025 CO2 [Moles/Vol] 22.3 mmol/L 21.0-32.0 [facility] Chloride assayOrdered By: Na na Alysha on 07-22-2025 Chloride [Moles/Vol] 106 mmol/L 98-108 [facility] Eosinophil percentageOrdered By: Renee Encarnacion on 07-22-2025 Eosinophils/100 WBC (Bld) 0.0 % 0-5 [facility] Erythrocyte distribution wid th ratioOrdered By: Reneeteofilo Encarnacion on 07-22-2025 Erythrocyte distribution width (RBC) [Ratio] 15.3 % High 11.6-14.6 [facility] Erythrocyte distribution wid th standard deviationOrdered By: Renee [facility] on 07-22-2025 Erythrocyte distribution width (RBC) [Ratio] 49.1 fl High 35.1-43.9 [facility] Glomerular filtration rate ( GFR) estimation/1.73 sq m using serum, plasma, or whole bOrdered By: Renee Encarnacion on 07-22-2025 GFR/1.73 sq M.predicted among non-blacks MDRD (S/P/Bld) [Vol rate/Area] 84 mL/min/{1.73_m2} >60 [facility] deOrdered By: Renee Encarnacion on 07-22-2025 Glucose [Mass/Vol] 136 mg/dL High 74-106 [facility] Hematocrit Auto (Bld) [Volum e fraction]Ordered By: Renee Encarnacion on 07-22-2025 Hematocrit (Bld) [Volume fraction] 32.9 % Low 37-47 [facility] Hemoglobin measurementOrdere d By: Renee Encarnacion on 07-22-2025 Hemoglobin (Bld) [Mass/Vol] 10.7 g/dL Low 12.0-15.0 [facility] Immature granulocytes/100 WB C Auto (Bld)Ordered By: Renee Encarnacion on 07-22-2025 Immature granulocytes/100 WBC (Bld) 2.500 % High 0.0-0.9 [facility] MCV (mean corpuscular volume ) determinationOrdered By: Renee Encarnacion on 07-22-2025 MCV (RBC) [Entitic vol] 88.7 fL 81-99 [facility] MR/CON.PCM.PAon 07-22-2025 MR/CON.PCM.PA Normal [facility] Mean corpuscular hemoglobin (MCH) determinationOrdered By: Renee Encarnacion on 07-22-2025 MCH (RBC) [Entitic mass] 28.8 pg 27.0-32.0 [facility] Modified Barium Swallow Stud yon 07-22-2025 Modified Barium Swallow Study Normal [facility] Monocyte percentageOrdered B y: Renee Encarnacion on 07-22-2025 Monocytes/100 WBC (Bld) 4.1 % 0-10 [facility] Neutrophil percentageOrdered By: Renee Encarnacion on 07-22-2025 Neutrophils/100 WBC (Bld) 84.7 % High 47-70 [facility] Platelet countOrdered By: Viki Encarnacion on 07-22-2025 Platelets (Bld) [#/Vol] 452 10*3/uL High 150-450 [facility] Potassium measurement (mass/ volume)Ordered By: Renee Encarnacion on 07-22-2025 Potassium (Unsp spec) [Mass/Vol] 3.2 mmol/L Low 3.3-5.1 [facility] RBC Auto (Bld) [#/Vol]Ordere d By: Renee Encarnacion on 07-22-2025 RBC (Bld) [#/Vol] 3.71 10*6/uL Low 4.2-5.4 [facility] Serum creatinine measurement (mass/volume)Ordered By: Renee Encarnacion on 07-22-2025 Creatinine [Mass/Vol] 0.76 mg/dL 0.70-1.20 [facility] Serum glucose measurement (m ass/volume)Ordered By: Renee Encarnacion on 07-22-2025 Glucose [Mass/Vol] 160 mg/dL High 70-99 [facility] Serum or plasma calcium erki urement (mass/volume)Ordered By: Renee Encarnacion on 07-22-2025 Calcium [Mass/Vol] 8.3 mg/dL 7.6-11.0 [facility] Serum or plasma urea nitroge n measurement (mass/volume)Ordered By: Renee Encarnacion on 07-22-2025 Urea nitrogen [Mass/Vol] 30 mg/dL High 4-19 [facility] Sodium levelOrdered By: Renee Encarnacion on 07-22-2025 Sodium [Moles/Vol] 142 mmol/L 133-145 [facility] White blood cell (WBC) count Ordered By: Renee Encarnacion on 07-22-2025 WBC (Bld) [#/Vol] 11.8 10*3/uL High 4.4-11.0 [facility] Basic Metabolic Profile (BMP )on 07-21-2025 BUN/CRE 47.6 RATIO High 10-20 [facility] Comment on above: Performed By: #### L 100.0100, L500.2500 ####[facility] [address] [place], [address] Calcium [Mass/Vol] 8.6 mg/dL Normal 7.6-11.0 [facility] Comment on above: Performed By: #### L 100.0100, L500.2500 ####[facility] [address] [place], [address] Chloride [Moles/Vol] 104 mmol/L Normal 98-108 [facility] Comment on above: Performed By: #### L 100.0100, L500.2500 ####[facility] [address] [place], [address] CO2 [Moles/Vol] 23.5 mmol/L Normal 21.0-32.0 [facility] Comment on above: Performed By: #### L 100.0100, L500.2500 ####[facility] [address] [place], [address] Creatinine [Mass/Vol] 0.83 mg/dL Normal 0.70-1.20 [facility] Comment on above: Performed By: #### L 100.0100, L500.2500 ####[facility] [address] [place], [address] ECRCL 50.05 ml/min Normal 50-250 [facility] Comment on above: Performed By: #### L 100.0100, L500.2500 ####[facility] [address] [place], [address] GAP 14 Normal 5-15 [facility] Comment on above: Performed By: #### L 100.0100, L500.2500 ####[facility] [address] [place], [address] GFR/1.73 sq M.predicted among non-blacks MDRD (S/P/Bld) [Vol rate/Area] 76 mL/min/{1.73_m2} Normal >60 [facility] Comment on above: Result Comment: mL/m in/1.73m2 CKD-EPI Creatinine Equation (2020) Performed By: #### L 100.0100, L500.2500 ####[facility] [address] [place], [address] Glucose [Mass/Vol] 167 mg/dL High 70-99 [facility] Comment on above: Performed By: #### L 100.0100, L500.2500 ####[facility] [address] [place], [address] Potassium [Moles/Vol] 3.9 mmol/L Normal 3.3-5.1 [facility] Comment on above: Performed By: #### L 100.0100, L500.2500 ####[facility] [address] [place], [address] Sodium [Moles/Vol] 141 mmol/L Normal 133-145 [facility] Comment on above: Performed By: #### L 100.0100, L500.2500 ####[facility] [address] [place], [address] Urea nitrogen [Mass/Vol] 39 mg/dL High 4-19 [facility] Comment on above: Performed By: #### L 100.0100, L500.2500 ####[facility] [address] [place], [address] Bedside Glucoseon 07-21-2025 FINGERSTICK GLU 82 mg/dL Normal 74-106 [facility] Comment on above: Result Comment: CHERYL GEMENT OF PATIENT CARE PER NURSING PROTOCOL Performed By: #### L 501.080 ####[facility] [address] [place], [address] FINGERSTICK GLU 52 mg/dL Low 74-106 [facility] Comment on above: Result Comment: Dr Geovanny pastrana FollowedInsulin GivenMANAGEMENT OF PATIENT CARE PER NURSING PROTOCOL Performed By: #### L 501.080 ####[facility] [address] [place], [address] FINGERSTICK GLU 202 mg/dL High 74-106 [facility] Comment on above: Result Comment: CHERYL GEMENT OF PATIENT CARE PER NURSING PROTOCOL Performed By: #### L 501.080 ####[facility] [address] [place], [address] FINGERSTICK GLU 49 mg/dL Low 74-106 [facility] Comment on above: Result Comment: CHERYL GEMENT OF PATIENT CARE PER NURSING PROTOCOL Performed By: #### L 501.080 ####[facility] [address] [place], [address] FINGERSTICK GLU 126 mg/dL High 74-106 [facility] Comment on above: Result Comment: CHERYL GEMENT OF PATIENT CARE PER NURSING PROTOCOL Performed By: #### L 501.080 ####[facility] [address] [place], [address] FINGERSTICK GLU 161 mg/dL High 74-106 [facility] Comment on above: Result Comment: CHERYL GEMENT OF PATIENT CARE PER NURSING PROTOCOL Performed By: #### L 501.080 ####[facility] [address] [place], [address] FINGERSTICK GLU 159 mg/dL High 74-106 [facility] Comment on above: Result Comment: CHERYL GEMENT OF PATIENT CARE PER NURSING PROTOCOL Performed By: #### L 501.080 ####[facility] [address] [place], [address] CBC W/Diff, Automatedon -2 Absolute Lymph 1.01 X10 3/uL Normal 0.83-4.51 [facility] Comment on above: Performed By: #### L 100.0100, L500.2500 ####[facility] [address] [place], [address] Absolute Neut 9.5 X10 3/uL High 2.0-7.7 [facility] Comment on above: Performed By: #### L 100.0100, L500.2500 ####[facility] [address] [place], [address] Basophils/100 WBC (Bld) 0.3 % Normal 0-1 [facility] Comment on above: Performed By: #### L 100.0100, L500.2500 ####[facility] [address] [place], [address] Eosinophils/100 WBC (Bld) 0.1 % Normal 0-5 [facility] Comment on above: Performed By: #### L 100.0100, L500.2500 ####[facility] [address] [place], [address] Erythrocyte distribution width (RBC) [Ratio] 15.3 % High 11.6-14.6 [facility] Comment on above: Performed By: #### L 100.0100, L500.2500 ####[facility] [address] [place], [address] Hematocrit (Bld) [Volume fraction] 32.5 % Low 37-47 [facility] Comment on above: Performed By: #### L 100.0100, L500.2500 ####[facility] [address] [place], [address] Hemoglobin (Bld) [Mass/Vol] 10.6 g/dL Low 12.0-15.0 [facility] Comment on above: Performed By: #### L 100.0100, L500.2500 ####[facility] [address] [place], [address] IG% 1.800 High 0.0-0.9 [facility] Comment on above: Result Comment: IG% - Immature Granulocytes (promyelocytes, myelocytes andmetamyelocytes) > 1% indicates that a LEFT SHIFT is Present. Performed By: #### L 100.0100, L500.2500 ####[facility] [address] [place], [address] Lymphocytes/100 WBC (Bld) 8.8 % Low 19-41 [facility] Comment on above: Performed By: #### L 100.0100, L500.2500 ####[facility] [address] [place], [address] MCH (RBC) [Entitic mass] 28.6 pg Normal 27.0-32.0 [facility] Comment on above: Performed By: #### L 100.0100, L500.2500 ####[facility] [address] [place], [address] MCHC (RBC) [Mass/Vol] 32.6 g/dL Normal 32-36 [facility] Comment on above: Performed By: #### L 100.0100, L500.2500 ####[facility] [address] [place], [address] MCV (RBC) [Entitic vol] 87.8 fL Normal 81-99 [facility] Comment on above: Performed By: #### L 100.0100, L500.2500 ####[facility] [address] [place], [address] Monocytes/100 WBC (Bld) 5.8 % Normal 0-10 [facility] Comment on above: Performed By: #### L 100.0100, L500.2500 ####[facility] [address] [place], [address] Neutrophils/100 WBC (Bld) 83.2 % High 47-70 [facility] Comment on above: Performed By: #### L 100.0100, L500.2500 ####[facility] [address] [place], [address] Nucleated RBC (Bld) [#/Vol] 0 10*3/uL Normal 0-5 [facility] Comment on above: Performed By: #### L 100.0100, L500.2500 ####[facility] [address] [place], [address] Platelet mean volume (Bld) [Entitic vol] 9.5 fL Normal 6.2-12.0 [facility] Comment on above: Performed By: #### L 100.0100, L500.2500 ####[facility] [address] [place], [address] Platelets (Bld) [#/Vol] 389 10*3/uL Normal 150-450 [facility] Comment on above: Performed By: #### L 100.0100, L500.2500 ####[facility] [address] [place], [address] RBC (Bld) [#/Vol] 3.70 10*6/uL Low 4.2-5.4 [facility] Comment on above: Performed By: #### L 100.0100, L500.2500 ####[facility] [address] [place], [address] RDW SD 48.8 fl High 35.1-43.9 [facility] Comment on above: Performed By: #### L 100.0100, L500.2500 ####[facility] [address] [place], [address] WBC (Bld) [#/Vol] 11.5 10*3/uL High 4.4-11.0 [facility] Comment on above: Performed By: #### L 100.0100, L500.2500 ####[facility] [address] [place], [address] Culture, Blood (WB)on 2024 CUB Blood cultures x2, from two different sites No growth in 5 days. Normal [facility] Comment on above: Performed By: #### M 200.1000 ####[facility] [address] [place], [address] Basic Metabolic Profile (BMP )on 07-20-2025 BUN/CRE 47.3 RATIO High 10-20 [facility] Comment on above: Performed By: #### L 100.0100, L500.2500 ####[facility] [address] [place], [address] Calcium [Mass/Vol] 8.2 mg/dL Normal 7.6-11.0 [facility] Comment on above: Performed By: #### L 100.0100, L500.2500 ####[facility] [address] [place], [address] Chloride [Moles/Vol] 105 mmol/L Normal 98-108 [facility] Comment on above: Performed By: #### L 100.0100, L500.2500 ####[facility] [address] [place], [address] CO2 [Moles/Vol] 22.2 mmol/L Normal 21.0-32.0 [facility] Comment on above: Performed By: #### L 100.0100, L500.2500 ####[facility] [address] [place], [address] Creatinine [Mass/Vol] 0.89 mg/dL Normal 0.70-1.20 [facility] Comment on above: Performed By: #### L 100.0100, L500.2500 ####[facility] [address] [place], [address] ECRCL 46.22 ml/min Low 50-250 [facility] Comment on above: Performed By: #### L 100.0100, L500.2500 ####[facility] [address] [place], [address] GAP 12 Normal 5-15 [facility] Comment on above: Performed By: #### L 100.0100, L500.2500 ####[facility] [address] [place], [address] GFR/1.73 sq M.predicted among non-blacks MDRD (S/P/Bld) [Vol rate/Area] 69 mL/min/{1.73_m2} Normal >60 [facility] Comment on above: Result Comment: mL/m in/1.73m2 CKD-EPI Creatinine Equation (2020) Performed By: #### L 100.0100, L500.2500 ####[facility] [address] [place], [address] Glucose [Mass/Vol] 194 mg/dL High 70-99 [facility] Comment on above: Performed By: #### L 100.0100, L500.2500 ####[facility] [address] [place], [address] Potassium [Moles/Vol] 4.4 mmol/L Normal 3.3-5.1 [facility] Comment on above: Performed By: #### L 100.0100, L500.2500 ####[facility] [address] [place], [address] Sodium [Moles/Vol] 139 mmol/L Normal 133-145 [facility] Comment on above: Performed By: #### L 100.0100, L500.2500 ####[facility] [address] [place], [address] Urea nitrogen [Mass/Vol] 42 mg/dL High 4-19 [facility] Comment on above: Performed By: #### L 100.0100, L500.2500 ####[facility] [address] [place], [address] Bedside Glucoseon 07-20-2025 FINGERSTICK GLU 179 mg/dL High 74-106 [facility] Comment on above: Result Comment: CHERYL GEMENT OF PATIENT CARE PER NURSING PROTOCOL Performed By: #### L 501.080 ####[facility] [address] [place], [address] FINGERSTICK GLU 170 mg/dL High 74-106 [facility] Comment on above: Result Comment: CHERYL GEMENT OF PATIENT CARE PER NURSING PROTOCOL Performed By: #### L 501.080 ####[facility] [address] [place], [address] FINGERSTICK GLU 176 mg/dL High 74-106 [facility] Comment on above: Result Comment: CHERYL GEMENT OF PATIENT CARE PER NURSING PROTOCOL Performed By: #### L 501.080 ####[facility] [address] [place], [address] CBC W/Diff, Automatedon 09-2 Absolute Lymph 0.59 X10 3/uL Low 0.83-4.51 [facility] Comment on above: Performed By: #### L 100.0100, L500.2500 ####[facility] [address] [place], [address] Absolute Neut 10.2 X10 3/uL High 2.0-7.7 [facility] Comment on above: Performed By: #### L 100.0100, L500.2500 ####[facility] [address] [place], [address] Basophils/100 WBC (Bld) 0.1 % Normal 0-1 [facility] Comment on above: Performed By: #### L 100.0100, L500.2500 ####[facility] [address] [place], [address] Eosinophils/100 WBC (Bld) 0.0 % Normal 0-5 [facility] Comment on above: Performed By: #### L 100.0100, L500.2500 ####[facility] [address] [place], [address] Erythrocyte distribution width (RBC) [Ratio] 15.4 % High 11.6-14.6 [facility] Comment on above: Performed By: #### L 100.0100, L500.2500 ####[facility] [address] [place], [address] Hematocrit (Bld) [Volume fraction] 33.0 % Low 37-47 [facility] Comment on above: Performed By: #### L 100.0100, L500.2500 ####[facility] [address] [place], [address] Hemoglobin (Bld) [Mass/Vol] 10.5 g/dL Low 12.0-15.0 [facility] Comment on above: Performed By: #### L 100.0100, L500.2500 ####[facility] [address] [place], [address] IG% 0.900 Normal 0.0-0.9 [facility] Comment on above: Result Comment: IG% - Immature Granulocytes (promyelocytes, myelocytes andmetamyelocytes) > 1% indicates that a LEFT SHIFT is Present. Performed By: #### L 100.0100, L500.2500 ####[facility] [id number] [place], [address] Lymphocytes/100 WBC (Bld) 5.2 % Low 19-41 [facility] Comment on above: Performed By: #### L 100.0100, L500.2500 ####[facility] [id number] [place], [address] MCH (RBC) [Entitic mass] 28.4 pg Normal 27.0-32.0 [facility] Comment on above: Performed By: #### L 100.0100, L500.2500 ####[facility] [id number] [place], [address] MCHC (RBC) [Mass/Vol] 31.8 g/dL Low 32-36 [facility] Comment on above: Performed By: #### L 100.0100, L500.2500 ####[facility] [id number] [place], [address] MCV (RBC) [Entitic vol] 89.2 fL Normal 81-99 [facility] Comment on above: Performed By: #### L 100.0100, L500.2500 ####[facility] [id number] [place], [address] Monocytes/100 WBC (Bld) 4.5 % Normal 0-10 [facility] Comment on above: Performed By: #### L 100.0100, L500.2500 ####[facility] [id number] [place], [address] Neutrophils/100 WBC (Bld) 89.3 % High 47-70 [facility] Comment on above: Performed By: #### L 100.0100, L500.2500 ####[facility] [id number] [place], [address] Nucleated RBC (Bld) [#/Vol] 0 10*3/uL Normal 0-5 [facility] Comment on above: Performed By: #### L 100.0100, L500.2500 ####[facility] [address] [place], [address] Platelet mean volume (Bld) [Entitic vol] 9.6 fL Normal 6.2-12.0 [facility] Comment on above: Performed By: #### L 100.0100, L500.2500 ####[facility] [address] [place], [address] Platelets (Bld) [#/Vol] 385 10*3/uL Normal 150-450 [facility] Comment on above: Performed By: #### L 100.0100, L500.2500 ####[facility] [address] [place], [address] RBC (Bld) [#/Vol] 3.70 10*6/uL Low 4.2-5.4 [facility] Comment on above: Performed By: #### L 100.0100, L500.2500 ####[facility] [address] [place], [address] RDW SD 49.8 fl High 35.1-43.9 [facility] Comment on above: Performed By: #### L 100.0100, L500.2500 ####[facility] [address] [place], [address] WBC (Bld) [#/Vol] 11.4 10*3/uL High 4.4-11.0 [facility] Comment on above: Performed By: #### L 100.0100, L500.2500 ####[facility] [address] [place], [place], [id number] Trough vancomycin levelOrder ed By: Eleazar Valle on 07-20-2025 Vancomycin trough [Mass/Vol] 13.3 ug/mL 5.0-15.0 [facility] Vancomycin, Trough Levelon 0 07-20-2025 VANCO, TROUGH 13.3 ug/mL Normal 5.0-15.0 [facility] Comment on above: Order Comment: Comme nts: Trough to be drawn 30 mins prior to scheduled [id number] Result Comment: Hank mmended goal trough ranges [...] therapy recommended for serious lifethreatening infections include:- Npmmobwpgu-Ajfpnceryjoo-Lcoygaail (Ventilator/Healtcare Associated)-SepsisPLEASE CONTACT PHARMACY SERVICES (#[id number]) FOR INTERPRETATIONOF RESULTS. Performed By: #### L 501.8820 ####[facility] [address] [place], [place], [id number] Basic Metabolic Profile (BMP )on 07-19-2025 BUN/CRE 41.1 RATIO High 10-20 [facility] Comment on above: Performed By: #### L 500.2500, L100.0100 ####[facility] [address] [place], [address] Calcium [Mass/Vol] 7.4 mg/dL Low 7.6-11.0 [facility] Comment on above: Performed By: #### L 500.2500, L100.0100 ####[facility] [address], [address] Chloride [Moles/Vol] 106 mmol/L Normal 98-108 [facility] Comment on above: Performed By: #### L 500.2500, L100.0100 ####[facility] [address] [place], [address] CO2 [Moles/Vol] 20.7 mmol/L Low 21.0-32.0 [facility] Comment on above: Performed By: #### L 500.2500, L100.0100 ####[facility] [address] [place], [address] Creatinine [Mass/Vol] 0.89 mg/dL Normal 0.70-1.20 [facility] Comment on above: Performed By: #### L 500.2500, L100.0100 ####[facility] [address] [place], [address] ECRCL 46.22 ml/min Low 50-250 [facility] Comment on above: Performed By: #### L 500.2500, L100.0100 ####[facility] [address] [place], [address] GAP 13 Normal 5-15 [facility] Comment on above: Performed By: #### L 500.2500, L100.0100 ####[facility] [address] [place], [address] GFR/1.73 sq M.predicted among non-blacks MDRD (S/P/Bld) [Vol rate/Area] 69 mL/min/{1.73_m2} Normal >60 [facility] Comment on above: Result Comment: mL/m in/1.73m2 CKD-EPI Creatinine Equation (2020) Performed By: #### L 500.2500, L100.0100 ####[facility] [address] [place], [address] Glucose [Mass/Vol] 199 mg/dL High 70-99 [facility] Comment on above: Performed By: #### L 500.2500, L100.0100 ####[facility] [address] [place], [address] Potassium [Moles/Vol] 3.0 mmol/L Low 3.3-5.1 [facility] Comment on above: Result Comment: Hemo lysis present, Results??could be affected.?? Performed By: #### L 500.2500, L100.0100 ####[facility] [address] [place], [address] Sodium [Moles/Vol] 140 mmol/L Normal 133-145 [facility] Comment on above: Performed By: #### L 500.2500, L100.0100 ####[facility] [address] [place], [address] Urea nitrogen [Mass/Vol] 37 mg/dL High 4-19 [facility] Comment on above: Performed By: #### L 500.2500, L100.0100 ####[facility] [address] [place], [address] Bedside Glucoseon 07-19-2025 FINGERSTICK GLU 163 mg/dL High 74-106 [facility] Comment on above: Result Comment: CHERYL GEMENT OF PATIENT CARE PER NURSING PROTOCOL Performed By: #### L 501.080 ####[facility] [address] [place], [address] FINGERSTICK GLU 166 mg/dL High 74-106 [facility] Comment on above: Result Comment: CHERYL GEMENT OF PATIENT CARE PER NURSING PROTOCOL Performed By: #### L 501.080 ####[facility] [address] [place], [address] FINGERSTICK GLU 125 mg/dL High 74-106 [facility] Comment on above: Result Comment: CHERYL GEMENT OF PATIENT CARE PER NURSING PROTOCOL Performed By: #### L 501.080 ####[facility] [address] [place], [address] FINGERSTICK GLU 192 mg/dL High 74-106 [facility] Comment on above: Result Comment: CHERYL GEMENT OF PATIENT CARE PER NURSING PROTOCOL Performed By: #### L 501.080 ####[facility] [address] [place], [address] FINGERSTICK GLU 190 mg/dL High 74-106 [facility] Comment on above: Result Comment: CHERYL GEMENT OF PATIENT CARE PER NURSING PROTOCOL Performed By: #### L 501.080 ####[facility] [address] [place], [address] Blood Gases by [facility] 025 Base excess Calc (Bld) [Moles/Vol] 3 mmol/L High -2 to +2 [facility] Comment on above: Performed By: #### L 9000.0800 ####[facility] [address] [place], [address] Blood Gas Type ART Normal [facility] Comment on above: Performed By: #### L 9000.0800 ####[facility] [address] [place], [address] CO2 [Moles/Vol] 28 mmol/L Normal [facility] Comment on above: Performed By: #### L 9000.0800 ####[facility] [address] [place], [address] FI02 30.0 Normal [facility] Comment on above: Performed By: #### L 9000.0800 ####[facility] [address] [place], [address] HCO3 (Bld) [Moles/Vol] 27.0 mmol/L High 22-26 [facility] Comment on above: Performed By: #### L 9000.0800 ####[facility] [address] [place], [address] Mode AC Normal [facility] Comment on above: Performed By: #### L 9000.0800 ####[facility] [address] [place], [address] O2 Delivery Dev Adult Vent Normal [facility] Comment on above: Performed By: #### L 9000.0800 ####[facility] [address] [place], [address] pCO2 36.7 mmHg Normal 35-45 [facility] Comment on above: Performed By: #### L 9000.0800 ####[facility] [address] [place], [address] PEEP 5 Normal [facility] Comment on above: Performed By: #### L 9000.0800 ####[facility] [address] [place], [address] pH (Bld) 7.48 [pH] High 7.35-7.45 [facility] Comment on above: Performed By: #### L 9000.0800 ####[facility] [address] [place], [address] PO2 53 mmHG Low 75-100 [facility] Comment on above: Performed By: #### L 9000.0800 ####[facility] [address] [place], [address] RR 20 Normal [facility] Comment on above: Performed By: #### L 9000.0800 ####[facility] [address] [place], [address] SITE R Brach Normal [facility] Comment on above: Performed By: #### L 9000.0800 ####[facility] [address] [place], [address] SO2 89 Low 95-99 [facility] Comment on above: Performed By: #### L 9000.0800 ####[facility] [address] [place], [address] Vt 400.0 mL Normal [facility] Comment on above: Performed By: #### L 9000.0800 ####[facility] [address] [place], [address] Blood base excess determinat ionOrdered By: Gerard Santos on 07-19-2025 Base excess Calc (BldV) [Moles/Vol] 3 mmol/L High -2-2 [facility] Blood bicarbonate measuremen tOrdered By: Gerard Santos on 07-19-2025 HCO3 (Bld) [Moles/Vol] 27.0 mmol/L High 22-26 [facility] CBC W/Diff, Automatedon 06-24 Absolute Lymph 0.40 X10 3/uL Low 0.83-4.51 [facility] Comment on above: Performed By: #### L 500.2500, L100.0100 ####[facility] [address] [place], [address] Absolute Neut 7.7 X10 3/uL Normal 2.0-7.7 [facility] Comment on above: Performed By: #### L 500.2500, L100.0100 ####[facility] [address] [place], [address] Basophils/100 WBC (Bld) 0.1 % Normal 0-1 [facility] Comment on above: Performed By: #### L 500.2500, L100.0100 ####[facility] [address] [place], [address] Eosinophils/100 WBC (Bld) 0.1 % Normal 0-5 [facility] Comment on above: Performed By: #### L 500.2500, L100.0100 ####[facility] [address] [place], [address] Erythrocyte distribution width (RBC) [Ratio] 15.3 % High 11.6-14.6 [facility] Comment on above: Performed By: #### L 500.2500, L100.0100 ####[facility] [address] [place], [address] Hematocrit (Bld) [Volume fraction] 31.3 % Low 37-47 [facility] Comment on above: Performed By: #### L 500.2500, L100.0100 ####[facility] [address] [place], [address] Hemoglobin (Bld) [Mass/Vol] 10.2 g/dL Low 12.0-15.0 [facility] Comment on above: Performed By: #### L 500.2500, L100.0100 ####[facility] [address] [place], [address] IG% 0.700 Normal 0.0-0.9 [facility] Comment on above: Result Comment: IG% - Immature Granulocytes (promyelocytes, myelocytes andmetamyelocytes) > 1% indicates that a LEFT SHIFT is Present. Performed By: #### L 500.2500, L100.0100 ####[facility] [address] [place], [address] Lymphocytes/100 WBC (Bld) 4.7 % Low 19-41 [facility] Comment on above: Performed By: #### L 500.2500, L100.0100 ####[facility] [address] [place], [address] MCH (RBC) [Entitic mass] 28.8 pg Normal 27.0-32.0 [facility] Comment on above: Performed By: #### L 500.2500, L100.0100 ####[facility] [address] [place], [address] MCHC (RBC) [Mass/Vol] 32.6 g/dL Normal 32-36 [facility] Comment on above: Performed By: #### L 500.2500, L100.0100 ####[facility] [address] [place], [address] MCV (RBC) [Entitic vol] 88.4 fL Normal 81-99 [facility] Comment on above: Performed By: #### L 500.2500, L100.0100 ####[facility] [address] [place], [address] Monocytes/100 WBC (Bld) 4.3 % Normal 0-10 [facility] Comment on above: Performed By: #### L 500.2500, L100.0100 ####[facility] [address] [place], [address] Neutrophils/100 WBC (Bld) 90.1 % High 47-70 [facility] Comment on above: Performed By: #### L 500.2500, L100.0100 ####[facility] [address] [place], [address] Nucleated RBC (Bld) [#/Vol] 0 10*3/uL Normal 0-5 [facility] Comment on above: Performed By: #### L 500.2500, L100.0100 ####[facility] [address] [place], [address] Platelet mean volume (Bld) [Entitic vol] 9.5 fL Normal 6.2-12.0 [facility] Comment on above: Performed By: #### L 500.2500, L100.0100 ####[facility] [address] [place], [address] Platelets (Bld) [#/Vol] 348 10*3/uL Normal 150-450 [facility] Comment on above: Performed By: #### L 500.2500, L100.0100 ####[facility] [address] [place], [address] RBC (Bld) [#/Vol] 3.54 10*6/uL Low 4.2-5.4 [facility] Comment on above: Performed By: #### L 500.2500, L100.0100 ####[facility] [address] [place], [address] RDW SD 49.1 fl High 35.1-43.9 [facility] Comment on above: Performed By: #### L 500.2500, L100.0100 ####[facility] [address] [place], [address] WBC (Bld) [#/Vol] 8.5 10*3/uL Normal 4.4-11.0 [facility] Comment on above: Performed By: #### L 500.2500, L100.0100 ####[facility] [address] [place], [address] Chest 1 View (Portable)on Chest 1 View (Portable) Normal [facility] Hepatitis Panel Acuteon 06-24 COMMENT Comment Normal . [facility] Comment on above: Result Comment: Not infected with HCV unless early or acute infection issuspected (which may be delayed in an immunocompromisedindividual), or other evidence exists to indicate HCVinfection.Performed at: - [facility] [id number] Director: Jonathan Lopez PhD, Phone: [phone] Performed By: #### L 3000.0375 ####[facility] [address] [place], [address] HEP B CORE,IgM Negative Normal Negative [facility] Comment on above: Performed By: #### L 3000.0375 ####[facility] [address] [place], [address] HEP B SURF AG Negative Normal Negative [facility] Comment on above: Performed By: #### L 3000.0375 ####[facility] [address] [place], [address] HEP C VIRUS AB Non-Reactive Normal Non Reactive [facility] Comment on above: Performed By: #### L 3000.0375 ####[facility] [address] [place], [place], [id number] HEPATITIS A-IgM Negative Normal Negative [facility] Comment on above: Result Comment: A ne gative anti-HAV IgM result suggests no recent orcurrent HAV infection. Performed By: #### L 3000.0375 ####[facility] [address] [place], [place], [id number] Measurement, pHOrdered By: Alphonso Santos on 07-19-2025 pH (Unsp spec) 7.48 [pH] High 7.35-7.45 [facility] No Panel InformationOrdered By: Gerard Santos on 07-19-2025 ART [facility] R Brach [facility] AC [facility] Adult Vent [facility] 400.0 mL [facility] 20 [facility] 5 [facility] Total carbon dioxide measure mentOrdered By: Gerard Santos on 07-19-2025 CO2 [Moles/Vol] 28 mmol/L [facility] Basic Metabolic Profile (BMP )on 07-18-2025 BUN/CRE 32.4 RATIO High 10-20 [facility] Comment on above: Performed By: #### L 500.2500, L501.2300, L100.0100, L501.5200 ####[facility] [address] [place], [place], [address] Calcium [Mass/Vol] 8.4 mg/dL Normal 7.6-11.0 [facility] Comment on above: Performed By: #### L 500.2500, L501.2300, L100.0100, L501.5200 ####[facility] [address] [place], [address] Chloride [Moles/Vol] 103 mmol/L Normal 98-108 [facility] Comment on above: Performed By: #### L 500.2500, L501.2300, L100.0100, L501.5200 ####[facility] [address] [place], [address] CO2 [Moles/Vol] 23.0 mmol/L Normal 21.0-32.0 [facility] Comment on above: Performed By: #### L 500.2500, L501.2300, L100.0100, L501.5200 ####[facility] [address] [place], [address] Creatinine [Mass/Vol] 1.04 mg/dL Normal 0.70-1.20 [facility] Comment on above: Performed By: #### L 500.2500, L501.2300, L100.0100, L501.5200 ####[facility] [address] [place], [address] ECRCL 39.32 ml/min Low 50-250 [facility] Comment on above: Performed By: #### L 500.2500, L501.2300, L100.0100, L501.5200 ####[facility] [address] [place], [address] GAP 13 Normal 5-15 [facility] Comment on above: Performed By: #### L 500.2500, L501.2300, L100.0100, L501.5200 ####[facility] [address] [place], [address] GFR/1.73 sq M.predicted among non-blacks MDRD (S/P/Bld) [Vol rate/Area] 57 mL/min/{1.73_m2} Low >60 [facility] Comment on above: Result Comment: mL/m in/1.73m2 CKD-EPI Creatinine Equation (2020) Performed By: #### L 500.2500, L501.2300, L100.0100, L501.5200 ####[facility] [address] [place], [address] Glucose [Mass/Vol] 181 mg/dL High 70-99 [facility] Comment on above: Performed By: #### L 500.2500, L501.2300, L100.0100, L501.5200 ####[facility] [address] [place], [address] Potassium [Moles/Vol] 3.6 mmol/L Normal 3.3-5.1 [facility] Comment on above: Performed By: #### L 500.2500, L501.2300, L100.0100, L501.5200 ####[facility] [address] [place], [address] Sodium [Moles/Vol] 139 mmol/L Normal 133-145 [facility] Comment on above: Performed By: #### L 500.2500, L501.2300, L100.0100, L501.5200 ####[facility] [address] [place], [address] Urea nitrogen [Mass/Vol] 34 mg/dL High 4-19 [facility] Comment on above: Performed By: #### L 500.2500, L501.2300, L100.0100, L501.5200 ####[facility] [address] [place], [address] Bedside Glucoseon 07-18-2025 FINGERSTICK GLU 187 mg/dL High 74-106 [facility] Comment on above: Result Comment: CHERYL GEMENT OF PATIENT CARE PER NURSING PROTOCOL Performed By: #### L 501.080 ####[facility] [address] [place], [address] FINGERSTICK GLU 192 mg/dL High 74-106 [facility] Comment on above: Result Comment: CHERYL GEMENT OF PATIENT CARE PER NURSING PROTOCOL Performed By: #### L 501.080 ####[facility] [address] [place], [address] FINGERSTICK GLU 174 mg/dL High 74-106 [facility] Comment on above: Result Comment: CHERYL WILLS OF PATIENT CARE PER NURSING PROTOCOL Performed By: #### L 501.080 ####[facility] [address] [place], [address] CBC W/Diff, Automatedon 2 Absolute Lymph 0.59 X10 3/uL Low 0.83-4.51 [facility] Comment on above: Performed By: #### L 500.2500, L501.2300, L100.0100, L501.5200 ####[facility] [address] [place], [address] Absolute Neut 8.8 X10 3/uL High 2.0-7.7 [facility] Comment on above: Performed By: #### L 500.2500, L501.2300, L100.0100, L501.5200 ####[facility] [address] [place], [address] Basophils/100 WBC (Bld) 0.1 % Normal 0-1 [facility] Comment on above: Performed By: #### L 500.2500, L501.2300, L100.0100, L501.5200 ####[facility] [address] [place], [address] Eosinophils/100 WBC (Bld) 0.0 % Normal 0-5 [facility] Comment on above: Performed By: #### L 500.2500, L501.2300, L100.0100, L501.5200 ####[facility] [address] [place], [address] Erythrocyte distribution width (RBC) [Ratio] 15.3 % High 11.6-14.6 [facility] Comment on above: Performed By: #### L 500.2500, L501.2300, L100.0100, L501.5200 ####[facility] [address] [place], [address] Hematocrit (Bld) [Volume fraction] 32.7 % Low 37-47 [facility] Comment on above: Performed By: #### L 500.2500, L501.2300, L100.0100, L501.5200 ####[facility] [address] [place], [address] Hemoglobin (Bld) [Mass/Vol] 11.2 g/dL Low 12.0-15.0 [facility] Comment on above: Performed By: #### L 500.2500, L501.2300, L100.0100, L501.5200 ####[facility] [address] [place], [address] IG% 0.800 Normal 0.0-0.9 [facility] Comment on above: Result Comment: IG% - Immature Granulocytes (promyelocytes, myelocytes andmetamyelocytes) > 1% indicates that a LEFT SHIFT is Present. Performed By: #### L 500.2500, L501.2300, L100.0100, L501.5200 ####[facility] [address] [place], [address] Lymphocytes/100 WBC (Bld) 5.9 % Low 19-41 [facility] Comment on above: Performed By: #### L 500.2500, L501.2300, L100.0100, L501.5200 ####[facility] [address] [place], [address] MCH (RBC) [Entitic mass] 29.8 pg Normal 27.0-32.0 [facility] Comment on above: Performed By: #### L 500.2500, L501.2300, L100.0100, L501.5200 ####[facility] [address] [place], [address] MCHC (RBC) [Mass/Vol] 34.3 g/dL Normal 32-36 [facility] Comment on above: Performed By: #### L 500.2500, L501.2300, L100.0100, L501.5200 ####[facility] [address] [place], [address] MCV (RBC) [Entitic vol] 87.0 fL Normal 81-99 [facility] Comment on above: Performed By: #### L 500.2500, L501.2300, L100.0100, L501.5200 ####[facility] [address] [place], [address] Monocytes/100 WBC (Bld) 4.7 % Normal 0-10 [facility] Comment on above: Performed By: #### L 500.2500, L501.2300, L100.0100, L501.5200 ####[facility] [address] [place], [address] Neutrophils/100 WBC (Bld) 88.5 % High 47-70 [facility] Comment on above: Performed By: #### L 500.2500, L501.2300, L100.0100, L501.5200 ####[facility] [address] [place], [address] Nucleated RBC (Bld) [#/Vol] 0 10*3/uL Normal 0-5 [facility] Comment on above: Performed By: #### L 500.2500, L501.2300, L100.0100, L501.5200 ####[facility] [address] [place], [address] Platelet mean volume (Bld) [Entitic vol] 9.4 fL Normal 6.2-12.0 [facility] Comment on above: Performed By: #### L 500.2500, L501.2300, L100.0100, L501.5200 ####[facility] [address] [place], [address] Platelets (Bld) [#/Vol] 365 10*3/uL Normal 150-450 [facility] Comment on above: Performed By: #### L 500.2500, L501.2300, L100.0100, L501.5200 ####[facility] [address] [place], [address] RBC (Bld) [#/Vol] 3.76 10*6/uL Low 4.2-5.4 [facility] Comment on above: Performed By: #### L 500.2500, L501.2300, L100.0100, L501.5200 ####[facility] [address] [place], [address] RDW SD 48.1 fl High 35.1-43.9 [facility] Comment on above: Performed By: #### L 500.2500, L501.2300, L100.0100, L501.5200 ####[facility] [address] [place], [address] WBC (Bld) [#/Vol] 9.9 10*3/uL Normal 4.4-11.0 [facility] Comment on above: Performed By: #### L 500.2500, L501.2300, L100.0100, L501.5200 ####[facility] [address] [place], [address] Magnesiumon 07-18-2025 Magnesium [Mass/Vol] 2.4 mg/dL High 1.5-2.2 [facility] Comment on above: Performed By: #### L 500.2500, L501.2300, L100.0100, L501.5200 ####[facility] [address] [place], [address] Magnesium measurement (mass/ volume)Ordered By: Eleazar Valle on 07-18-2025 Magnesium (Unsp spec) [Mass/Vol] 2.4 mg/dL High 1.5-2.2 [facility] No Panel InformationOrdered By: Jack Haile on 07-18-2025 Comment . [facility] Phosphoruson 07-18-2025 Phosphate [Mass/Vol] 3.6 mg/dL Normal 2.7-4.5 [facility] Comment on above: Performed By: #### L 500.2500, L501.2300, L100.0100, L501.5200 ####[facility] [address] [place], [address] Respiratory Cultureon 2024 RESPC Mixed normal respiratory renu. No Streptococcus pneumoniae, beta-hemolytic Streptococcus or Staphylococcus aureus isolated. Normal [facility] Comment on above: Performed By: #### M 100.2400, M100.2000, M100.678, M100.2200 ####[facility] [address] [place], [address] Serum or plasma hepatitis B virus surface antigen detection by immunoassayOrdered By: Jack Haile on 07-18-2025 HBV surface Ag IA Ql Negative Negative [facility] Vancomycin, Trough Levelon 0 07-18-2025 VANCO, TROUGH 7.7 ug/mL Normal 5.0-15.0 [facility] Comment on above: Order Comment: Comme nts: Trough to be drawn 30 mins prior to scheduled [id number] Result Comment: Hank mmended goal trough ranges [...] therapy recommended for serious lifethreatening infections include:- Dcnrjxjews-Tpuhabojqhgp-Cndhdlhct (Ventilator/Healtcare Associated)-SepsisPLEASE CONTACT PHARMACY SERVICES (#9223) FOR INTERPRETATIONOF RESULTS. Performed By: #### L 501.8820 ####[facility] [address] [place], [address] Basic Metabolic Profile (BMP )on 07-17-2025 BUN/CRE 22.6 RATIO High 10-20 [facility] Comment on above: Performed By: #### L 500.2500, L100.0100 ####[facility] [address] [place], [address] Calcium [Mass/Vol] 8.1 mg/dL Normal 7.6-11.0 [facility] Comment on above: Performed By: #### L 500.2500, L100.0100 ####[facility] [address] [place], [address] Chloride [Moles/Vol] 102 mmol/L Normal 98-108 [facility] Comment on above: Performed By: #### L 500.2500, L100.0100 ####[facility] [address] [place], [address] CO2 [Moles/Vol] 22.9 mmol/L Normal 21.0-32.0 [facility] Comment on above: Performed By: #### L 500.2500, L100.0100 ####[facility] [address] [place], [place], [address] Creatinine [Mass/Vol] 1.30 mg/dL High 0.70-1.20 [facility] Comment on above: Performed By: #### L 500.2500, L100.0100 ####[facility] [address] [place], [address] ECRCL 29.63 ml/min Low 50-250 [facility] Comment on above: Performed By: #### L 500.2500, L100.0100 ####[facility] [address] [place], [address] GAP 15 Normal 5-15 [facility] Comment on above: Performed By: #### L 500.2500, L100.0100 ####[facility] [address] [place], [address] GFR/1.73 sq M.predicted among non-blacks MDRD (S/P/Bld) [Vol rate/Area] 44 mL/min/{1.73_m2} Low >60 [facility] Comment on above: Result Comment: mL/m in/1.73m2 CKD-EPI Creatinine Equation (2020) Performed By: #### L 500.2500, L100.0100 ####[facility] [address] [place], [address] Glucose [Mass/Vol] 149 mg/dL High 70-99 [facility] Comment on above: Performed By: #### L 500.2500, L100.0100 ####[facility] [address] [place], [address] Potassium [Moles/Vol] 3.0 mmol/L Low 3.3-5.1 [facility] Comment on above: Performed By: #### L 500.2500, L100.0100 ####[facility] [address] [place], [address] Sodium [Moles/Vol] 140 mmol/L Normal 133-145 [facility] Comment on above: Performed By: #### L 500.2500, L100.0100 ####[facility] [address] [place], [address] Urea nitrogen [Mass/Vol] 29 mg/dL High 4-19 [facility] Comment on above: Performed By: #### L 500.2500, L100.0100 ####[facility] [address] [place], [address] BUN Normal 4-19 [facility] Comment on above: Result Comment: DUPL ICATE Performed By: #### L 100.0100, L500.2500 ####[facility] [address] [place], [address] BUN/CRE Normal 10-20 [facility] Comment on above: Result Comment: DUPL ICATE Performed By: #### L 100.0100, L500.2500 ####[facility] [address] [place], [address] Calcium Normal 7.6-11.0 [facility] Comment on above: Result Comment: DUPL ICATE Performed By: #### L 100.0100, L500.2500 ####[facility] [address] [place], [address] CL Normal 98-108 [facility] Comment on above: Result Comment: DUPL ICATE Performed By: #### L 100.0100, L500.2500 ####[facility] [address] [place], [address] CO2 Normal 21.0-32.0 [facility] Comment on above: Result Comment: DUPL ICATE Performed By: #### L 100.0100, L500.2500 ####[facility] [address] [place], [address] CREAT,SERUM Normal 0.70-1.20 [facility] Comment on above: Result Comment: DUPL ICATE Performed By: #### L 100.0100, L500.2500 ####[facility] [address] [place], [address] eGFR Normal >60 [facility] Comment on above: Result Comment: DUPL ICATE Performed By: #### L 100.0100, L500.2500 ####[facility] [address] [place], [address] GAP Normal 5-15 [facility] Comment on above: Result Comment: DUPL ICATE Performed By: #### L 100.0100, L500.2500 ####[facility] [address] [place], [address] GLU Normal 70-99 [facility] Comment on above: Result Comment: DUPL ICATE Performed By: #### L 100.0100, L500.2500 ####[facility] [address] [place], [address] Potassium Normal 3.3-5.1 [facility] Comment on above: Result Comment: DUPL ICATE Performed By: #### L 100.0100, L500.2500 ####[facility] [address] [place], [address] Basic Metabolic Profile (BMP) Normal 133-145 [facility] Comment on above: Result Comment: DUPL ICATE Performed By: #### L 100.0100, L500.2500 ####[facility] [address] [place], [address] Bedside Glucoseon 07-17-2025 FINGERSTICK GLU 185 mg/dL High 74-106 [facility] Comment on above: Result Comment: CHERYL GEMENT OF PATIENT CARE PER NURSING PROTOCOL Performed By: #### L 501.080 ####[facility] [address] [place], [address] FINGERSTICK GLU 157 mg/dL High 74-106 [facility] Comment on above: Result Comment: CHERYL GEMENT OF PATIENT CARE PER NURSING PROTOCOL Performed By: #### L 501.080 ####[facility] [address] [place], [address] FINGERSTICK GLU 165 mg/dL High 74-106 [facility] Comment on above: Result Comment: Dr Geovanny pastrana FollowedInsulin GivenMANAGEMENT OF PATIENT CARE PER NURSING PROTOCOL Performed By: #### L 501.080 ####[facility] [address] [place], [address] FINGERSTICK GLU 156 mg/dL High 74-106 [facility] Comment on above: Result Comment: CHERYL GEMENT OF PATIENT CARE PER NURSING PROTOCOL Performed By: #### L 501.080 ####[facility] [address] [place], [address] FINGERSTICK GLU 153 mg/dL High 74-106 [facility] Comment on above: Result Comment: CHERYL GEMENT OF PATIENT CARE PER NURSING PROTOCOL Performed By: #### L 501.080 ####[facility] [address] [place], [address] CBC W/Diff, Automatedon 06-24-2024 Absolute Lymph 0.76 X10 3/uL Low 0.83-4.51 [facility] Comment on above: Performed By: #### L 500.2500, L100.0100 ####[facility] [address] [place], [address] Absolute Neut 7.0 X10 3/uL Normal 2.0-7.7 [facility] Comment on above: Performed By: #### L 500.2500, L100.0100 ####[facility] [address] [place], [address] Basophils/100 WBC (Bld) 0.1 % Normal 0-1 [facility] Comment on above: Performed By: #### L 500.2500, L100.0100 ####[facility] [address] [place], [address] Eosinophils/100 WBC (Bld) 0.0 % Normal 0-5 [facility] Comment on above: Performed By: #### L 500.2500, L100.0100 ####[facility] [address] [place], [address] Erythrocyte distribution width (RBC) [Ratio] 15.1 % High 11.6-14.6 [facility] Comment on above: Performed By: #### L 500.2500, L100.0100 ####[facility] [address] [place], [address] Hematocrit (Bld) [Volume fraction] 29.1 % Low 37-47 [facility] Comment on above: Performed By: #### L 500.2500, L100.0100 ####[facility] [address] [place], [address] Hemoglobin (Bld) [Mass/Vol] 9.8 g/dL Low 12.0-15.0 [facility] Comment on above: Performed By: #### L 500.2500, L100.0100 ####[facility] [address] [place], [address] IG% 0.400 Normal 0.0-0.9 [facility] Comment on above: Result Comment: IG% - Immature Granulocytes (promyelocytes, myelocytes andmetamyelocytes) > 1% indicates that a LEFT SHIFT is Present. Performed By: #### L 500.2500, L100.0100 ####[facility] [address] [place], [address] Lymphocytes/100 WBC (Bld) 9.1 % Low 19-41 [facility] Comment on above: Performed By: #### L 500.2500, L100.0100 ####[facility] [address] [place], [address] MCH (RBC) [Entitic mass] 29.3 pg Normal 27.0-32.0 [facility] Comment on above: Performed By: #### L 500.2500, L100.0100 ####[facility] [address] [place], [address] MCHC (RBC) [Mass/Vol] 33.7 g/dL Normal 32-36 [facility] Comment on above: Performed By: #### L 500.2500, L100.0100 ####[facility] [address] [place], [address] MCV (RBC) [Entitic vol] 87.1 fL Normal 81-99 [facility] Comment on above: Performed By: #### L 500.2500, L100.0100 ####[facility] [address] [place], [address] Monocytes/100 WBC (Bld) 6.3 % Normal 0-10 [facility] Comment on above: Performed By: #### L 500.2500, L100.0100 ####[facility] [address] [place], [address] Neutrophils/100 WBC (Bld) 84.1 % High 47-70 [facility] Comment on above: Performed By: #### L 500.2500, L100.0100 ####[facility] [address] [place], [address] Nucleated RBC (Bld) [#/Vol] 0 10*3/uL Normal 0-5 [facility] Comment on above: Performed By: #### L 500.2500, L100.0100 ####[facility] [address] [place], [address] Platelet mean volume (Bld) [Entitic vol] 9.7 fL Normal 6.2-12.0 [facility] Comment on above: Performed By: #### L 500.2500, L100.0100 ####[facility] [address] [place], [address] Platelets (Bld) [#/Vol] 352 10*3/uL Normal 150-450 [facility] Comment on above: Performed By: #### L 500.2500, L100.0100 ####[facility] [address] [place], [address] RBC (Bld) [#/Vol] 3.34 10*6/uL Low 4.2-5.4 [facility] Comment on above: Performed By: #### L 500.2500, L100.0100 ####[facility] [address] [place], [address] RDW SD 47.9 fl High 35.1-43.9 [facility] Comment on above: Performed By: #### L 500.2500, L100.0100 ####[facility] [address] [place], [address] WBC (Bld) [#/Vol] 8.4 10*3/uL Normal 4.4-11.0 [facility] Comment on above: Performed By: #### L 500.2500, L100.0100 ####[facility] [address] [place], [address] Absolute Neut Normal 2.0-7.7 [facility] Comment on above: Result Comment: DUPL ICATE Performed By: #### L 100.0100, L500.2500 ####[facility] [address] [place], [address] HCT Normal 37-47 [facility] Comment on above: Result Comment: DUPL ICATE Performed By: #### L 100.0100, L500.2500 ####[facility] [address] [place], [address] HGB Normal 12.0-15.0 [facility] Comment on above: Result Comment: DUPL ICATE Performed By: #### L 100.0100, L500.2500 ####[facility] [address] [place], [address] MCH Normal 27.0-32.0 [facility] Comment on above: Result Comment: DUPL ICATE Performed By: #### L 100.0100, L500.2500 ####[facility] [address] [place], [address] MCHC Normal 32-36 [facility] Comment on above: Result Comment: DUPL ICATE Performed By: #### L 100.0100, L500.2500 ####[facility] [address] [place], [address] MCV Normal 81-99 [facility] Comment on above: Result Comment: DUPL ICATE Performed By: #### L 100.0100, L500.2500 ####[facility] [address] [place], [address] NEUT% Normal 47-70 [facility] Comment on above: Result Comment: DUPL ICATE Performed By: #### L 100.0100, L500.2500 ####[facility] [address] [place], [address] PLT Normal 150-450 [facility] Comment on above: Result Comment: DUPL ICATE Performed By: #### L 100.0100, L500.2500 ####[facility] [address] [place], [address] RBC Normal 4.2-5.4 [facility] Comment on above: Result Comment: DUPL ICATE Performed By: #### L 100.0100, L500.2500 ####[facility] [address] [place], [address] RDW CV Normal 11.6-14.6 [facility] Comment on above: Result Comment: DUPL ICATE Performed By: #### L 100.0100, L500.2500 ####[facility] [address] [place], [address] RDW SD Normal 35.1-43.9 [facility] Comment on above: Result Comment: DUPL ICATE Performed By: #### L 100.0100, L500.2500 ####[facility] [address] [place], [address] WBC Normal 4.4-11.0 [facility] Comment on above: Result Comment: DUPL ICATE Performed By: #### L 100.0100, L500.2500 ####[facility] [address] [place], [place], [address] Chest 1 View (Portable)on Chest 1 View (Portable) Normal [facility] Electrocardiogram reportOrde red By: Rosy Colindres on 07-17-2025 EKG study [facility] Other Natriuretic peptide.B prohor clover N-Terminal [Mass/volume] in Serum or PlasmaOrdered By: Jack Haile on 07-17-2025 Natriuretic peptide.B prohormone N-Terminal [Mass/Vol] 6511 pg/mL High <900 [facility] Pro- Brain NATRIURETIC PEPTI Donna 07-17-2025 Natriuretic peptide B (Bld) [Mass/Vol] 6511 pg/mL High <=900 [facility] Comment on above: Result Comment: Hear t Failure Unlikely: < 300 pg/mLHeart Failure Likely< 50 Years: > 450 pg/mL50-75 Years: > 900 pg/mL>75 Years: > 1800 pg/mL Performed By: #### L 503.7505 ####[facility] [address] [place], [place], [address] Urine Cultureon 07-17-2025 URC Culture exhibits no growth. Normal [facility] Comment on above: Performed By: #### M 100.2400, M100.2000, M100.678, M100.2200 ####[facility] [address] [place], [address] 12 Lead EKGon 07-16-2025 12 Lead EKG Normal [facility] 12 Lead EKG Normal [facility] Abdomen/Pelvis without Conto n 07-16-2025 Abdomen/Pelvis without Cont Normal [facility] Assessment of wrist artery p atency prior to arterial punctureOrdered By: Gerard Santos on 07-16-2025 Arterial patency Wrist artery --pre arterial puncture N/A [facility] Bedside Glucoseon 07-16-2025 FINGERSTICK GLU 135 mg/dL High 74-106 [facility] Comment on above: Result Comment: CHERYL GEMENT OF PATIENT CARE PER NURSING PROTOCOL Performed By: #### L 501.080 ####[facility] [address] [place], [address] FINGERSTICK GLU 124 mg/dL High 74-106 [facility] Comment on above: Result Comment: CHERYL GEMENT OF PATIENT CARE PER NURSING PROTOCOL Performed By: #### L 501.080 ####[facility] [address] [place], [address] FINGERSTICK GLU 145 mg/dL High 74-106 [facility] Comment on above: Result Comment: CHERYL GEMENT OF PATIENT CARE PER NURSING PROTOCOL Performed By: #### L 501.080 ####[facility] [address] [place], [address] FINGERSTICK GLU 152 mg/dL High 74-106 [facility] Comment on above: Result Comment: CHERYL GEMENT OF PATIENT CARE PER NURSING PROTOCOL Performed By: #### L 501.080 ####[facility] [address] [place], [address] Bilirubin Test strip Ql (U)O rdered By: Jack Haile on 07-16-2025 Bilirubin Ql (U) Negative Negative [facility] Bilirubin, totalOrdered By: Bernardo Sharif on 07-16-2025 Bilirubin [Mass/Vol] 0.34 mg/dL 0.00-1.30 [facility] Blood Gases by CPSon 025 JUDITH TEST N/A Normal [facility] Comment on above: Performed By: #### L 9000.0800 ####[facility] [address] [place], [address] Base excess Calc (Bld) [Moles/Vol] 6 mmol/L High -2 to +2 [facility] Comment on above: Performed By: #### L 9000.0800 ####[facility] [address] [place], [address] Blood Gas Type ART Normal [facility] Comment on above: Performed By: #### L 9000.0800 ####[facility] [address] [place], [address] CO2 [Moles/Vol] 30 mmol/L Normal [facility] Comment on above: Performed By: #### L 9000.0800 ####[facility] [address] [place], [address] FI02 50.0 Normal [facility] Comment on above: Performed By: #### L 9000.0800 ####[facility] [address] [place], [address] HCO3 (Bld) [Moles/Vol] 29.1 mmol/L High 22-26 [facility] Comment on above: Performed By: #### L 9000.0800 ####[facility] [address] [place], [address] Mode AC Normal [facility] Comment on above: Performed By: #### L 9000.0800 ####[facility] [address] [place], [address] O2 Delivery Dev Adult Vent Normal [facility] Comment on above: Performed By: #### L 9000.0800 ####[facility] [address] [place], [address] pCO2 38.6 mmHg Normal 35-45 [facility] Comment on above: Performed By: #### L 9000.0800 ####[facility] [address] [place], [address] PEEP 5 Normal [facility] Comment on above: Performed By: #### L 9000.0800 ####[facility] [address] [place], [address] pH (Bld) 7.49 [pH] High 7.35-7.45 [facility] Comment on above: Performed By: #### L 9000.0800 ####[facility] [address] [place], [address] PO2 96 mmHG Normal 75-100 [facility] Comment on above: Performed By: #### L 9000.0800 ####[facility] [address] [place], [address] RR 20 Normal [facility] Comment on above: Performed By: #### L 9000.0800 ####[facility] [address] [place], [address] SITE L Radial Normal [facility] Comment on above: Performed By: #### L 9000.0800 ####[facility] [address] [place], [address] SO2 98 Normal 95-99 [facility] Comment on above: Performed By: #### L 9000.0800 ####[facility] [address] [place], [address] Vt 400.0 mL Normal [facility] Comment on above: Performed By: #### L 9000.0800 ####[facility] [address] [place], [address] JUDITH TEST N/A Normal [facility] Comment on above: Performed By: #### L 9000.0800 ####[facility] [address] [place], [address] Base excess Calc (Bld) [Moles/Vol] -9 mmol/L Low -2 to +2 [facility] Comment on above: Performed By: #### L 9000.0800 ####[facility] [address] [place], [address] Blood Gas Type ART Normal [facility] Comment on above: Performed By: #### L 0.0800 ####[facility] [address] [place], [address] CO2 [Moles/Vol] 24 mmol/L Normal [facility] Comment on above: Performed By: #### L 0.0800 ####[facility] [address] [place], [address] FI02 50.0 Normal [facility] Comment on above: Performed By: #### L 0.0800 ####[facility] [address] [place], [address] HCO3 (Bld) [Moles/Vol] 21.2 mmol/L Low 22-26 [facility] Comment on above: Performed By: #### L 0.0800 ####[facility] [address] [place], [address] Mode AC Normal [facility] Comment on above: Performed By: #### L 0.0800 ####[facility] [address] [place], [address] O2 Delivery Dev Adult Vent Normal [facility] Comment on above: Performed By: #### L 0.0800 ####[facility] [address] [place], [address] pCO2 75.1 mmHg Invalid Interpretation Code 35-45 [facility] Comment on above: Performed By: #### L 0.0800 ####[facility] [address] [place], [address] PEEP 5 Normal [facility] Comment on above: Performed By: #### L 0.0800 ####[facility] [address] [place], [address] pH (Bld) 7.06 [pH] Invalid Interpretation Code 7.35-7.45 [facility] Comment on above: Performed By: #### L 8999.0800 ####[facility] [address] [place], [address] PO2 73 mmHG Low 75-100 [facility] Comment on above: Performed By: #### L 8999.0800 ####[facility] [address] [place], [address] Read Back By Yes [facility] Comment on above: Performed By: #### L 8999.0800 ####[facility] [address] [place], [address] Sharif [facility] Comment on above: Performed By: #### L 8999.0800 ####[facility] [address] [place], [address] RR 20 [facility] Comment on above: Performed By: #### L 8999.0800 ####[facility] [address] [place], [address] SITE L Radial [facility] Comment on above: Performed By: #### L 8999.0800 ####[facility] [address] [place], [address] SO2 86 Low 95-99 [facility] Comment on above: Performed By: #### L 8999.0800 ####[facility] [address] [place], [address] Time Given 04:00:19 [facility] Comment on above: Performed By: #### L 0.0800 ####[facility] [address] [place], [address] Vt 400.0 mL [facility] Comment on above: Performed By: #### L 8999.0800 ####[facility] [address] [place], [address] Blood cultureOrdered By: Gissel romano Chante on 07-16-2025 Bacteria identified Cx Nom (Bld) No growth in 5 days. [facility] Bacteria identified Cx Nom (Bld) No growth in 5 days. [facility] Blood manual differential co mment interpretation (narrative result)Ordered By: Bernardo Chante on 07-16-2025 Manual differential comment Dandy (Bld) [Interp] SCANNED [facility] Brain/Head without Contrasto n 07-16-2025 Brain/Head without Contrast Normal [facility] CBC W/Diff, Automatedon 06-24 SMEAR COMMENT SCANNED Normal [facility] Comment on above: Result Comment: LYMP HOCYTOSIS PRESENT Performed By: #### L 503.6005, L501.4021, L100.0100 ####[facility] [address] [place], [place], [address] CPK Total, Creatine Kinaseon 07-16-2025 CPK TOTAL 126 U/L Normal 24- [facility] Comment on above: Order Comment: Comme nts: DC when propofol is d/c'd Performed By: #### L 501.5000, L501.3620 ####[facility] [address] [place], [place], [address] CTA Chest W/WO Contraston CTA Chest W/WO Contrast Normal [facility] Calculated very low density lipoprotein (VLDL) cholesterol measurementOrdered By: Jack Haile on 07-16-2025 Calculated very low density lipoprotein (VLDL) cholesterol measurement 20 mg/dL 5-40 [facility] Chest 1 View (Portable)on Chest 1 View (Portable) Normal [facility] Comprehensive Metabolic Prof ilon 07-16-2025 Albumin [Mass/Vol] 3.8 g/dL Normal 3.4-4.8 [facility] Comment on above: Performed By: #### L 500.4050, L503.7505 ####[facility] [address] [place], [place], [address] Albumin/Globulin [Mass ratio] 1.2 {ratio} Normal 0.9-2.4 [facility] Comment on above: Performed By: #### L 500.4050, L503.7505 ####[facility] [address] [place], [address] ALK PHOS 163 U/L High 35-104 [facility] Comment on above: Performed By: #### L 500.4050, L503.7505 ####[facility] [address] [place], [address] ALT [Catalytic activity/Vol] 118 U/L High <=34 [facility] Comment on above: Performed By: #### L 500.4050, L503.7505 ####[facility] [address] [place], [address] AST [Catalytic activity/Vol] 158 U/L High <=31 [facility] Comment on above: Result Comment: Hemo lysis present, Results??could be affected.?? Performed By: #### L 500.4050, L503.7505 ####[facility] [address] [place], [address] Bilirubin [Mass/Vol] 0.34 mg/dL Normal 0.00-1.30 [facility] Comment on above: Performed By: #### L 500.4050, L503.7505 ####[facility] [address] [place], [address] BUN/CRE 13.1 RATIO Normal 10-20 [facility] Comment on above: Performed By: #### L 500.4050, L503.7505 ####[facility] [address] [place], [address] Calcium [Mass/Vol] 8.5 mg/dL Normal 7.6-11.0 [facility] Comment on above: Performed By: #### L 500.4050, L503.7505 ####[facility] [address] [place], [address] Chloride [Moles/Vol] 100 mmol/L Normal 98-108 [facility] Comment on above: Performed By: #### L 500.4050, L503.7505 ####[facility] [address] [place], [address] CO2 [Moles/Vol] 21.7 mmol/L Normal 21.0-32.0 [facility] Comment on above: Performed By: #### L 500.4050, L503.7505 ####[facility] [address] [place], [address] Creatinine [Mass/Vol] 1.27 mg/dL High 0.70-1.20 [facility] Comment on above: Performed By: #### L 500.4050, L503.7505 ####[facility] [address] [place], [address] ECRCL 34.32 ml/min Low 50-250 [facility] Comment on above: Performed By: #### L 500.4050, L503.7505 ####[facility] [address] [place], [address] GAP 15 Normal 5-15 [facility] Comment on above: Performed By: #### L 500.4050, L503.7505 ####[facility] [address] [place], [address] GFR/1.73 sq M.predicted among non-blacks MDRD (S/P/Bld) [Vol rate/Area] 45 mL/min/{1.73_m2} Low >60 [facility] Comment on above: Result Comment: mL/m in/1.73m2 CKD-EPI Creatinine Equation (2020) Performed By: #### L 500.4050, L503.7505 ####[facility] [address] [place], [address] Globulin (S) [Mass/Vol] 3.1 g/dL Normal 2.2-4.2 [facility] Comment on above: Performed By: #### L 500.4050, L503.7505 ####[facility] [address] [place], [address] Glucose [Mass/Vol] 368 mg/dL High 70-99 [facility] Comment on above: Performed By: #### L [id number], [id number] ####[facility] [id number] [place], [address] Potassium [Moles/Vol] 3.7 mmol/L Normal 3.3-5.1 [facility] Comment on above: Result Comment: Hemo lysis present, Results??could be affected.?? Performed By: #### L 500.4050, [id number] ####[facility] [id number] [place], [address] Sodium [Moles/Vol] 137 mmol/L Normal 133-145 [facility] Comment on above: Performed By: #### L [id number], [id number] ####[facility] [id number] [place], [address] T PROT 6.9 g/dL Normal 5.9-8.4 [facility] Comment on above: Performed By: #### L 500.4050, L503.7505 ####[facility] [address] [place], [address] Urea nitrogen [Mass/Vol] 17 mg/dL Normal 4-19 [facility] Comment on above: Performed By: #### L 500.4050, L503.7505 ####[facility] [address] [place], [address] Consultation - Intensiviston 07-16-2025 Consultation - Director Global Sales Normal [facility] Echo Completeon 07-16-2025 Echo Complete Normal [facility] Echocardiogram study reportO rdered By: Dashawn Christiansen on 07-16-2025 Study report [facility] Work Phone: Emergency Department Summary on 07-16-2025 Emergency Department Summary Normal [facility] Gram stainOrdered By: Bernardo Sharif on 07-16-2025 Microscopic observation Gram stain Nom (Unsp spec) [facility] H AND P Exam - Hospitaliston 07-16-2025 H&P Exam - Hospitalist Normal [facility] Hemoglobin A1con 07-16-2025 HbA1c (Bld) [Mass fraction] 6.1 % High <=5.6 [facility] Comment on above: Result Comment: Norm al < 5.7 % Prediabetic 5.7 - 6.4 % Diabetic >or= 6.5 % Please note range changes. Performed By: #### L 501.9938 ####[facility] [address] [place], [place], [id number] Hemoglobin A1c percentageOrd ered By: Jack Haile on 07-16-2025 HbA1c (Bld) [Mass fraction] 6.1 % High <5.7 [facility] Influenza virus A and B and SARS-CoV-2 (COVID-19) and Respiratory syncytial virus RNAOrdered By: Bernardo Sharif on 07-16-2025 SARS-CoV-2 (COVID-19) RNA ALEJANDRO+probe Ql (Unsp spec) [facility] Ketones Test strip Ql (U)Ord ered By: Jack Haile on 07-16-2025 Ketones Ql (U) Negative Negative [facility] L501.4021on 07-16-2025 Trop T High Sen 114 ng/L Invalid Interpretation Code <=14 [facility] Comment on above: Result Comment: Crit ical Result(s) Called at:0517 by: MARTY ROWELLN TO GONZALOPARR??Results read back by same. Performed By: #### L 503.6005, L501.4021, L100.0100 ####[facility] [address] [place], [address] LDL calc ser/plasOrdered By: Jack Haile on 07-16-2025 Cholesterol in LDL [Mass/Vol] 146 mg/dL [facility] Lactic Acidon 07-16-2025 Lactate [Moles/Vol] 1.4 mmol/L Normal 0.0-2.0 [facility] Comment on above: Performed By: #### L 503.6005 ####[facility] [address] [place], [address] Lactate [Moles/Vol] 3.2 mmol/L Invalid Interpretation Code 0.0-2.0 [facility] Comment on above: Order Comment: Y Result Comment: Crit ical Result(s) Called at:0451 by: MARTY WINN TO GRETA Results read back by same. Performed By: #### L 503.6005, L501.4021, L100.0100 ####[facility] [address] [place], [address] Legionella Antigen Urineon 0 07-16-2025 LEGU Normal [facility] Comment on above: Performed By: #### M 300.4500, M100.638, M300.4600, L400.0001 ####[facility] [address] [place], [address] Lipid Profileon 07-16-2025 Cholesterol in LDL [Mass/Vol] 146 mg/dL Normal [facility] Comment on above: Order Comment: WG1 5 F Result Comment: Bord sehazb=927-948 mg/dL Higher Xexk=639 mg/dL or greaterFriedwald Equation for LDL-C Performed By: #### L 500.4100 ####[facility] [address] [place], [address] Cholesterol in VLDL [Mass/Vol] 20 mg/dL Normal 5-40 [facility] Comment on above: Order Comment: WG1 5 F Performed By: #### L 500.4100 ####[facility] [address] [place], [address] Triglyceride [Mass/Vol] 99 mg/dL Normal [facility] Comment on above: Order Comment: WG1 5 F Result Comment: The drugs N-Acetylcysteine and Metamizole may falselydepress this assay.Normal range: <150 mg/dLBorderline High: 150-199 mg/dLHigh: 200-499 mg/dLVery High: >500 mg/dL Performed By: #### L 500.4100 ####[facility] [address] [place], [address] M100.678on 07-16-2025 M100.678 SARS-CoV-2 (COVID 19 ) Negative INFLUENZA A Negative INFLUENZA B Negative RSV PCR Negative Normal [facility] Comment on above: Performed By: #### M 100.2400, M100.2000, M100.678, M100.2200 ####[facility] [address] [place], [address] M8200.1000on 07-16-2025 M8200.1000 Negative Normal [facility] Comment on above: Performed By: #### M 8200.1000 ####[facility] [address] [place], [address] Magnesiumon 07-16-2025 Magnesium [Mass/Vol] 2.8 mg/dL High 1.5-2.2 [facility] Comment on above: Performed By: #### L 501.5200 ####[facility] [address] [place], [address] Microbial respiratory cultur eOrdered By: Bernardo Sharif on 07-16-2025 Microorganism identified Cx Nom (Unsp spec) or Staphylococcus aureus isolated. [facility] Mucus LM Ql (Urine sed)Order ed By: Jack Haile on 07-16-2025 Mucus Ql (Urine sed) 0 SEEN /hpf [facility] Nasal methicillin resistant Staphylococcus aureus (MRSA) DNA detection by PCROrdered By: Eleazar Valle on 07-16-2025 MRSA DNA ALEJANDRO+probe Ql (Nose) [facility] Nitrite Test strip Ql (U)Ord ered By: Jack Haile on 07-16-2025 Nitrite Ql (U) Negative Negative [facility] No Panel InformationOrdered By: Bernardo Sharif on 07-16-2025 04:00:[address] [facility] [address] Sharif [facility] Yes [facility] 158 U/L High <32 [facility] Pro- Brain NATRIURETIC PEPTI Donna 07-16-2025 Natriuretic peptide B (Bld) [Mass/Vol] 7963 pg/mL High <=900 [facility] Comment on above: Result Comment: Hear t Failure Unlikely: < 300 pg/mLHeart Failure Likely< 50 Years: > 450 pg/mL50-75 Years: > 900 pg/mL>75 Years: > 1800 pg/mL Performed By: #### L 500.4050, L503.7505 ####[facility] [address] [place], [place], [id number] Protein Test strip Ql (U)Ord ered By: Jack Haile on 07-16-2025 Protein Ql (U) 30 mg/dl High Negative [facility] RESPIRATORY PANEL MOLECULARo n 07-16-2025 RP PANEL Normal [facility] Comment on above: Performed By: #### M 300.4500, M100.638, M300.4600, L400.0001 ####[facility] [address] [place], [place], [id number] Respiratory pathogens detect ion panel by molecular detection methodOrdered By: Jack Haile on 07-16-2025 Respiratory pathogens DNA and RNA panel ALEJANDRO+probe (Resp) [facility] Serum globulin measurementOr dered By: Bernardo Sharif on 07-16-2025 Globulin (S) [Mass/Vol] 3.1 g/dL 2.2-4.2 [facility] Serum or plasma alanine kinney otransferase (ALT) measurementOrdered By: Bernardo Sharif on 07-16-2025 ALT [Catalytic activity/Vol] 118 U/L High <35 [facility] Serum or plasma albumin erik urement (mass/volume)Ordered By: Bernardo Sharif on 07-16-2025 Albumin [Mass/Vol] 3.8 g/dL 3.4-4.8 [facility] Serum or plasma albumin/glob ulin mass ratioOrdered By: Bernardo Sharif on 07-16-2025 Albumin/Globulin [Mass ratio] 1.2 {ratio} 0.9-2.4 [facility] Serum or plasma alkaline chris sphatase measurementOrdered By: Bernardo Sharif on 07-16-2025 ALP [Catalytic activity/Vol] 163 U/L High 35-104 [facility] Serum or plasma cholesterol in HDL measurement (mass/volume)Ordered By: Jack Haile on 07-16-2025 Cholesterol in HDL [Mass/Vol] 67 mg/dL >40 [facility] Serum or plasma cholesterol measurement (mass/volume)Ordered By: Jack Haile on 07-16-2025 Cholesterol [Mass/Vol] 233 mg/dL High <201 [facility] Serum or plasma creatine kin ase activityOrdered By: Bernardo Sharif on 07-16-2025 CK [Catalytic activity/Vol] 126 U/L 24-195 [facility] Squamous epithelial cells de tection in urine sediment by light microscopyOrdered By: Jack Haile on 07-16-2025 Epithelial cells.squamous LM Ql (Urine sed) 0 SEEN /hpf 5-10 [facility] Strep pneumoniae Antig(UR,CS F)on 07-16-2025 STPAG Normal [facility] Comment on above: Performed By: #### M 300.4500, M100.638, M300.4600, L400.0001 ####[facility] [address] [place], [address] Total proteinOrdered By: Jaime Sharif on 07-16-2025 Protein [Mass/Vol] 6.9 g/dL 5.9-8.4 [facility] Triglycerideson 07-16-2025 Triglyceride [Mass/Vol] 67 mg/dL Normal [facility] Comment on above: Order Comment: Comme nts: DC when propofol is d/c'dDC when propofol is d/c'd Result Comment: The drugs N-Acetylcysteine and Metamizole may falselydepress this assay.Normal range: <150 mg/dLBorderline High: 150-199 mg/dLHigh: 200-499 mg/dLVery High: >500 mg/dL Performed By: #### L 501.5000, L501.3620 ####[facility] [address] [place], [address] Troponin T HS 2 HRon 025 Trop T High Sen 95 ng/L Invalid Interpretation Code <=14 [facility] Comment on above: Result Comment: Crit ical Result(s) Called at: 0622 by:??MARTY MIMS Results read back by same. Performed By: #### L 499.0042 ####[facility] [address] [place], [address] Troponin T HS 4 HRon 025 Trop T High Sen 93 ng/L Invalid Interpretation Code <=14 [facility] Comment on above: Result Comment: Crit ical Result(s) Called at: 0946 07/16/2025 by: JOSE ??Results read back by same. Performed By: #### L 499.0043 ####[facility] [address] [place], [address] Trop T High Sen Normal <=14 [facility] Comment on above: Result Comment: DUPL ICATE ORDER. Performed By: #### L 499.0043 ####[facility] [address] [place], [address] Troponin T.cardiac [Mass/vol ume] in Serum or Plasma by High sensitivity methodOrdered By: Jack Haile on 07-16-2025 Troponin T.cardiac High sensitivity method [Mass/Vol] 93 ng/L Critically high <14 [facility] Troponin T.cardiac [Mass/vol ume] in Serum or Plasma by High sensitivity methodOrdered By: Bernardo Sharif on 07-16-2025 Troponin T.cardiac High sensitivity method [Mass/Vol] 95 ng/L Critically high <14 [facility] Troponin T.cardiac High sensitivity method [Mass/Vol] 114 ng/L Critically high <14 [facility] Urinalysis, Completeon 07-16 BACTERIA 0 SEEN Normal None Seen [facility] Comment on above: Order Comment: DAVINA TER SPECIMEN Performed By: #### M 300.4500, M100.638, M300.4600, L400.0001 ####[facility] [address] [place], [address] EPI,SQUAMOUS 0 SEEN Normal 5-10 [facility] Comment on above: Order Comment: DAVINA TER SPECIMEN Performed By: #### M 300.4500, M100.638, M300.4600, L400.0001 ####[facility] [address] [place], [address] Mucus Ql (Urine sed) 0 SEEN Normal [facility] Comment on above: Order Comment: DAVINA TER SPECIMEN Performed By: #### M 300.4500, M100.638, M300.4600, L400.0001 ####[facility] [address] [place], [address] RBC 0 SEEN Normal 0-5 [facility] Comment on above: Order Comment: DAVINA TER SPECIMEN Performed By: #### M 300.4500, M100.638, M300.4600, L400.0001 ####[facility] [address] [place], [address] WBC 0 SEEN Normal 0-5 [facility] Comment on above: Order Comment: DAVINA TER SPECIMEN Performed By: #### M 300.4500, M100.638, M300.4600, L400.0001 ####[facility] [address] [place], [address] Urine Legionella pneumophila antigen detectionOrdered By: Jack Haile on 07-16-2025 L. pneumophila Ag Ql (U) [facility] Urine clarityOrdered By: Nate Haile on 07-16-2025 Clarity (U) Clear Clear [facility] Urine color determinationOrd ered By: Jack Haile on 07-16-2025 Color (U) Straw Yellow [facility] Urine cultureOrdered By: Jaime Sharif on 07-16-2025 Bacteria identified Cx Nom (U) Culture exhibits no growth. [facility] Urine glucose detectionOrder ed By: Jack Haile on 07-16-2025 Glucose Ql (U) Normal mg/dl Normal [facility] Urine leukocyte esterase det ection by dipstickOrdered By: Jack Haile on 07-16-2025 Leukocyte esterase Test strip Ql (U) Negative Negative [facility] Urine pHOrdered By: Jack portillo on 07-16-2025 pH (U) 7.0 [pH] 5.0 - 8.0 [facility] Urine sediment bacteria coun t by microscopy (number/high power field)Ordered By: Jack Haile on 07-16-2025 Bacteria LM.HPF (Urine sed) [#/Area] 0 /[HPF] None Seen [facility] Urine specific gravity measu rementOrdered By: Jack Haile on 07-16-2025 Specific gravity (U) [Rel density] 1.005 1.002-1.030 [facility] Urine urobilinogen measureme ntOrdered By: Jack Haile on 07-16-2025 Urobilinogen Ql (U) Normal mg/dl Normal [facility] White blood cell countOrdere d By: Jack Haile on 07-16-2025 White blood cell count 0 SEEN /hpf 0-5 [facility] .Auto Diffon 06-25-2025 Basophil, Absolute 0.0 10 3/mcL Normal 0.0-0.3 [facility] Comment on above: Performed By: #### C BC, ADIFF, ANEU, APTT, CMP, HFP, GFR #### [address] [address] Basophils/100 WBC (Bld) 0.1 % Normal 0.0-2.5 [facility] Comment on above: Performed By: #### C BC, ADIFF, ANEU, APTT, CMP, HFP, GFR #### [address] [address] Eosinophil, Absolute 0.0 10 3/mcL Normal 0.0-0.7 [facility] Comment on above: Performed By: #### C BC, ADIFF, ANEU, APTT, CMP, HFP, GFR #### [address] [address] Eosinophils/100 WBC (Bld) 0.2 % Normal 0.0-6.0 [facility] Comment on above: Performed By: #### C BC, ADIFF, ANEU, APTT, CMP, HFP, GFR #### [address] [address] Lymphocyte, Absolute 0.9 10 3/mcL Normal 0.9-4.3 [facility] Comment on above: Performed By: #### C BC, ADIFF, ANEU, APTT, CMP, HFP, GFR #### [address] [address] Lymphocytes/100 WBC (Bld) 9.0 % Low 20.0-40.0 [facility] Comment on above: Performed By: #### C BC, ADIFF, ANEU, APTT, CMP, HFP, GFR #### [address] [address] Monocyte, Absolute 0.4 10 3/mcL Normal 0.1-1.4 [facility] Comment on above: Performed By: #### C BC, ADIFF, ANEU, APTT, CMP, HFP, GFR #### [address] [address] Monocytes/100 WBC (Bld) 3.9 % Normal 2.0-13.0 [facility] Comment on above: Performed By: #### C BC, ADIFF, ANEU, APTT, CMP, HFP, GFR #### [address] [address] Neutrophils/100 WBC (Bld) 86.8 % High 50.0-75.0 [facility] Comment on above: Performed By: #### C BC, ADIFF, ANEU, APTT, CMP, HFP, GFR #### [address] [address] .GFRon 09-03-2025 Estimated Glomerular Filtration Rate 63 ml/min/1.73sqm Normal [facility] Comment on above: Result Comment: Stages [...] ADIFF, ANEU, APTT, CMP, HFP, GFR #### [address] [address] .NEUABSon 06-25-2025 Neutrophil, Absolute 8.6 10 3/mcL High 2.3-8.1 [facility] Comment on above: Performed By: #### C BC, ADIFF, ANEU, APTT, CMP, HFP, GFR #### [address] [address] BMPon 06-25-2025 BUN/Creatinine Ratio 19.8 ratio Normal 10.0-22.0 [facility] Comment on above: Performed By: #### C BC, ADIFF, ANEU, APTT, CMP, HFP, GFR #### [place] [id number] [place] [address] Calcium [Mass/Vol] 8.8 mg/dL Normal 8.7-10.4 [facility] Comment on above: Performed By: #### C BC, ADIFF, ANEU, APTT, CMP, HFP, GFR #### [place] [id number] [place] [address] Chloride [Moles/Vol] 104 mmol/L Normal 98-110 [facility] Comment on above: Performed By: #### C BC, ADIFF, ANEU, APTT, CMP, HFP, GFR #### [address] [address] CO2 [Moles/Vol] 24 mmol/L Normal 22-32 [facility] Comment on above: Performed By: #### C BC, ADIFF, ANEU, APTT, CMP, HFP, GFR #### [address] [address] Creatinine [Mass/Vol] 0.96 mg/dL Normal 0.50-1.20 [facility] Comment on above: Result Comment: Test ing performed on [employer] analyzer using enzymatic creatinine methodology. Performed By: #### C BC, ADIFF, ANEU, APTT, CMP, HFP, GFR #### [address] [address] Electrolyte Balance 9.0 mEq/L Normal 4.0-15.0 [facility] Comment on above: Performed By: #### C BC, ADIFF, ANEU, APTT, CMP, HFP, GFR #### [address] [address] Glucose [Mass/Vol] 134 mg/dL High 82-115 [facility] Comment on above: Performed By: #### C BC, ADIFF, ANEU, APTT, CMP, HFP, GFR #### [address] [address] Potassium [Moles/Vol] 4.6 mmol/L Normal 3.5-5.0 [facility] Comment on above: Performed By: #### C BC, ADIFF, ANEU, APTT, CMP, HFP, GFR #### [address] [address] Sodium [Moles/Vol] 137 mmol/L Normal 136-145 [facility] Comment on above: Performed By: #### C BC, ADIFF, ANEU, APTT, CMP, HFP, GFR #### [address] [address] Urea nitrogen [Mass/Vol] 19.0 mg/dL Normal 8.0-22.0 [facility] Comment on above: Performed By: #### C BC, ADIFF, ANEU, APTT, CMP, HFP, GFR #### [place] [address] CBCon 06-25-2025 Erythrocyte distribution width (RBC) [Ratio] 14.7 % Normal 11.5-15.5 [facility] Comment on above: Performed By: #### C BC, ADIFF, ANEU, APTT, CMP, HFP, GFR #### [place] [address] Hematocrit (Bld) [Volume fraction] 33.3 % Low 34.0-46.0 [facility] Comment on above: Performed By: #### C BC, ADIFF, ANEU, APTT, CMP, HFP, GFR #### [place] [address] Hgb 11.1 G/dL Low 12.0-16.0 [facility] Comment on above: Performed By: #### C BC, ADIFF, ANEU, APTT, CMP, HFP, GFR #### [place] [address] MCH (RBC) [Entitic mass] 29.4 pg Normal 27.0-33.0 [facility] Comment on above: Performed By: #### C BC, ADIFF, ANEU, APTT, CMP, HFP, GFR #### [place] [address] MCHC 33.3 G/dL Normal 32.0-36.0 [facility] Comment on above: Performed By: #### C BC, ADIFF, ANEU, APTT, CMP, HFP, GFR #### [place] [address] MCV (RBC) [Entitic vol] 88.5 fL Normal 80.0-99.0 [facility] Comment on above: Performed By: #### C BC, ADIFF, ANEU, APTT, CMP, HFP, GFR #### [place] [address] Platelet 341 10 3/mcL Normal 150-450 [facility] Comment on above: Performed By: #### C BC, ADIFF, ANEU, APTT, CMP, HFP, GFR #### [place] [address] Platelet mean volume (Bld) [Entitic vol] 8.0 fL Normal 6.6-10.5 [facility] Comment on above: Performed By: #### C BC, ADIFF, ANEU, APTT, CMP, HFP, GFR #### [place] [id number] [place] [address] RBC 3.77 10 6/mcL Low 4.10-5.30 [facility] Comment on above: Performed By: #### C BC, ADIFF, ANEU, APTT, CMP, HFP, GFR #### [place] [id number] [place] [address] WBC 10.0 10 3/mcL Normal 4.5-10.8 [facility] Comment on above: Performed By: #### C BC, ADIFF, ANEU, APTT, CMP, HFP, GFR #### [place] [address] LABORATORYOrdered By: SYSTEM SYSTEM on 06-25-2025 Basophils [...] above: Interpretive Data: T esting performed on [employer] analyzer using enzymatic creatinine methodology. Electrolyte Balance [...] 06-25-2025 Magnesium [Mass/Vol] 2.0 mg/dL Normal 1.6-2.4 [facility] Comment on above: Performed By: #### C BC, ADIFF, ANEU, APTT, CMP, HFP, GFR #### [address] [address] .Auto Diffon 06-24-2025 Basophil, Absolute 0.0 10 3/mcL Normal 0.0-0.3 [facility] Comment on above: Performed By: #### L AC #### [address] [address] Basophils/100 WBC (Bld) 0.2 % Normal 0.0-2.5 [facility] Comment on above: Performed By: #### L AC #### [address] [address] Eosinophil, Absolute 0.2 10 3/mcL Normal 0.0-0.7 [facility] Comment on above: Performed By: #### L AC #### [address] [address] Eosinophils/100 WBC (Bld) 1.8 % Normal 0.0-6.0 [facility] Comment on above: Performed By: #### L AC #### [facility] [address] [place] [address] Lymphocyte, Absolute 4.1 10 3/mcL Normal 0.9-4.3 [facility] Comment on above: Performed By: #### L AC #### [facility] [address] [place] [address] Lymphocytes/100 WBC (Bld) 31.0 % Normal 20.0-40.0 [facility] Comment on above: Performed By: #### L AC #### [facility] [address] [place] [address] Monocyte, Absolute 1.0 10 3/mcL Normal 0.1-1.4 [facility] Comment on above: Performed By: #### L AC #### [address] [address] Monocytes/100 WBC (Bld) 7.6 % Normal 2.0-13.0 [facility] Comment on above: Performed By: #### L AC #### [address] [address] Neutrophils/100 WBC (Bld) 59.4 % Normal 50.0-75.0 [facility] Comment on above: Performed By: #### L AC #### [address] [address] .GFRon 06-24-2025 Estimated Glomerular Filtration Rate 60 ml/min/1.73sqm Normal [facility] Comment on above: Result Comment: Stages [...] results. Performed By: #### L AC #### [address] [address] .NEUABSon 06-24-2025 Neutrophil, Absolute 7.9 10 3/mcL Normal 2.3-8.1 [facility] Comment on above: Performed By: #### L AC #### [place] [address] APTTon 06-24-2025 aPTT Coag (Bld) [Time] 68.0 s High 25.0-35.0 [facility] Comment on above: Result Comment: For Heparin anticoagulation therapy, the recommended therapeutic range is: 54-77 seconds (APTT Correlation with Anti-Xa therapeutic range of 0.3-0.7 units/ml). PLEASE REFERENCE THE PHARMACY PROTOCOL FOR DOSING. Performed By: #### A PTT ####[place] [address] aPTT Coag (Bld) [Time] 52.5 s High 25.0-35.0 [facility] Comment on above: Result Comment: For Heparin anticoagulation therapy, the recommended therapeutic range is: 54-77 seconds (APTT Correlation with Anti-Xa therapeutic range of 0.3-0.7 units/ml). PLEASE REFERENCE THE PHARMACY PROTOCOL FOR DOSING. Performed By: #### L AC #### [place] [address] aPTT Coag (Bld) [Time] 48.2 s High 25.0-35.0 [facility] Comment on above: Result Comment: For Heparin anticoagulation therapy, the recommended therapeutic range is: 54-77 seconds (APTT Correlation with Anti-Xa therapeutic range of 0.3-0.7 units/ml). PLEASE REFERENCE THE PHARMACY PROTOCOL FOR DOSING. Performed By: #### A PTT #### [place] [address] CBCon 06-24-2025 Erythrocyte distribution width (RBC) [Ratio] 14.3 % Normal 11.5-15.5 [facility] Comment on above: Performed By: #### L AC #### [place] [address] Hematocrit (Bld) [Volume fraction] 36.2 % Normal 34.0-46.0 [facility] Comment on above: Performed By: #### L AC #### [place] [address] Hgb 11.9 G/dL Low 12.0-16.0 [facility] Comment on above: Performed By: #### L AC #### [place] [id number] MCH (RBC) [Entitic mass] 29.1 pg Normal 27.0-33.0 [facility] Comment on above: Performed By: #### L AC #### [place] [address] MCHC 32.9 G/dL Normal 32.0-36.0 [facility] Comment on above: Performed By: #### L AC #### [place] [address] MCV (RBC) [Entitic vol] 88.3 fL Normal 80.0-99.0 [facility] Comment on above: Performed By: #### L AC #### [place] [id number] Platelet 371 10 3/mcL Normal 150-450 [facility] Comment on above: Performed By: #### L AC #### [place] [id number] Platelet mean volume (Bld) [Entitic vol] 8.1 fL Normal 6.6-10.5 [facility] Comment on above: Performed By: #### L AC #### [place] [id number] RBC 4.10 10 6/mcL Normal 4.10-5.30 [facility] Comment on above: Performed By: #### L AC #### [place] [id number] WBC 13.3 10 3/mcL High 4.5-10.8 [facility] Comment on above: Performed By: #### L AC #### [place] [id number] CMPon 06-24-2025 Albumin Level 3.5 G/dL Normal 3.2-4.8 [facility] Comment on above: Performed By: #### L AC #### [address] [address] Albumin/Globulin [Mass ratio] 1.2 {ratio} Normal 0.9-1.6 [facility] Comment on above: Performed By: #### L AC #### [address] [address] ALP [Catalytic activity/Vol] 69 U/L Normal 38-126 [facility] Comment on above: Performed By: #### L AC #### [address] [address] ALT [Catalytic activity/Vol] 74 U/L High 10-49 [facility] Comment on above: Performed By: #### L AC #### [address] [address] AST [Catalytic activity/Vol] 44 U/L High 8-34 [facility] Comment on above: Performed By: #### L AC #### [address] [address] Bili Total 0.40 mg/dL Normal 0.20-1.20 [facility] Comment on above: Result Comment: Use of this assay is not recommended for patients undergoing treatment with eltrombopag due to the potential for falsely elevated results. Performed By: #### L AC #### [place] [phone] BUN/Creatinine Ratio 19.0 ratio Normal 10.0-22.0 [facility] Comment on above: Performed By: #### L AC #### [address] [address] Calcium [Mass/Vol] 9.2 mg/dL Normal 8.7-10.4 [facility] Comment on above: Performed By: #### L AC #### [place] [phone] Chloride [Moles/Vol] 102 mmol/L Normal 98-110 [facility] Comment on above: Performed By: #### L AC #### [place] [address] [address] CO2 [Moles/Vol] 30 mmol/L Normal 22-32 [facility] Comment on above: Performed By: #### L AC #### [address] [address] Creatinine [Mass/Vol] 1.00 mg/dL Normal 0.50-1.20 [facility] Comment on above: Result Comment: Test ing performed on [employer] analyzer using enzymatic creatinine methodology. Performed By: #### L AC #### [address] [address] Electrolyte Balance 7.0 mEq/L Normal 4.0-15.0 [facility] Comment on above: Performed By: #### L AC #### [address] [address] Globulin 3.0 G/dL Normal 2.5-4.2 [facility] Comment on above: Performed By: #### L AC #### [address] [address] Glucose [Mass/Vol] 91 mg/dL Normal 82-115 [facility] Comment on above: Performed By: #### L AC #### [address] [address] Potassium [Moles/Vol] 3.8 mmol/L Normal 3.5-5.0 [facility] Comment on above: Performed By: #### L AC #### [address] [address] Sodium [Moles/Vol] 139 mmol/L Normal 136-145 [facility] Comment on above: Performed By: #### L AC #### [address] [address] Total Protein 6.5 G/dL Normal 5.7-8.2 [facility] Comment on above: Performed By: #### L AC #### [address] [address] Urea nitrogen [Mass/Vol] 19.0 mg/dL Normal 8.0-22.0 [facility] Comment on above: Performed By: #### L AC #### [place] [address] LABORATORYOrdered By: SYSTEM SYSTEM on 06-24-2025 aPTT [...] above: Interpretive Data: T esting performed on [employer] analyzer using enzymatic creatinine methodology. Electrolyte Balance [...] 06-24-2025 Magnesium [Mass/Vol] 2.2 mg/dL Normal 1.6-2.4 [facility] Comment on above: Performed By: #### L AC #### [address] [address] .Auto Diffon 06-23-2025 Basophil, Absolute 0.1 10 3/mcL Normal 0.0-0.3 [facility] Comment on above: Performed By: #### A PTT #### [address] [address] Basophils/100 WBC (Bld) 0.5 % Normal 0.0-2.5 [facility] Comment on above: Performed By: #### A PTT #### [address] [address] Eosinophil, Absolute 0.2 10 3/mcL Normal 0.0-0.7 [facility] Comment on above: Performed By: #### A PTT #### [address] [address] Eosinophils/100 WBC (Bld) 2.0 % Normal 0.0-6.0 [facility] Comment on above: Performed By: #### A PTT #### [address] [address] Lymphocyte, Absolute 3.7 10 3/mcL Normal 0.9-4.3 [facility] Comment on above: Performed By: #### A PTT #### [address] [address] Lymphocytes/100 WBC (Bld) 31.3 % Normal 20.0-40.0 [facility] Comment on above: Performed By: #### A PTT #### [address] [address] Monocyte, Absolute 1.0 10 3/mcL Normal 0.1-1.4 [facility] Comment on above: Performed By: #### A PTT #### [address] [address] Monocytes/100 WBC (Bld) 8.2 % Normal 2.0-13.0 [facility] Comment on above: Performed By: #### A PTT #### [address] [address] Neutrophils/100 WBC (Bld) 58.0 % Normal 50.0-75.0 [facility] Comment on above: Performed By: #### A PTT #### [address] [address] .GFRon 06-23-2025 Estimated Glomerular Filtration Rate 59 ml/min/1.73sqm Normal [facility] Comment on above: Result Comment: Stages [...] results. Performed By: #### A PTT #### [address] [address] .NEUABSon 06-23-2025 Neutrophil, Absolute 6.9 10 3/mcL Normal 2.3-8.1 [facility] Comment on above: Performed By: #### A PTT #### [place] [phone] APTTon 06-23-2025 aPTT Coag (Bld) [Time] 52.7 s High 25.0-35.0 [facility] Comment on above: Result Comment: For Heparin anticoagulation therapy, the recommended therapeutic range is: 54-77 seconds (APTT Correlation with Anti-Xa therapeutic range of 0.3-0.7 units/ml). PLEASE REFERENCE THE PHARMACY PROTOCOL FOR DOSING. Performed By: #### L AC #### [place] [address] aPTT Coag (Bld) [Time] 67.1 s High 25.0-35.0 [facility] Comment on above: Result Comment: For Heparin anticoagulation therapy, the recommended therapeutic range is: 54-77 seconds (APTT Correlation with Anti-Xa therapeutic range of 0.3-0.7 units/ml). PLEASE REFERENCE THE PHARMACY PROTOCOL FOR DOSING. Performed By: #### A PTT ####[address] [address] aPTT Coag (Bld) [Time] 50.7 s High 25.0-35.0 [facility] Comment on above: Result Comment: For Heparin anticoagulation therapy, the recommended therapeutic range is: 54-77 seconds (APTT Correlation with Anti-Xa therapeutic range of 0.3-0.7 units/ml). PLEASE REFERENCE THE PHARMACY PROTOCOL FOR DOSING. Performed By: #### C BC, ADIFF, ANEU, APTT, CMP, HFP, GFR #### [address] [address] BMPon 06-23-2025 BUN/Creatinine Ratio 24.5 ratio High 10.0-22.0 [facility] Comment on above: Performed By: #### A PTT #### [address] [address] Calcium [Mass/Vol] 9.0 mg/dL Normal 8.7-10.4 [facility] Comment on above: Performed By: #### A PTT #### [address] [address] Chloride [Moles/Vol] 104 mmol/L Normal 98-110 [facility] Comment on above: Performed By: #### A PTT #### [address] [address] CO2 [Moles/Vol] 29 mmol/L Normal 22-32 [facility] Comment on above: Performed By: #### A PTT #### [address] [address] Creatinine [Mass/Vol] 1.02 mg/dL Normal 0.50-1.20 [facility] Comment on above: Result Comment: Test ing performed on [employer] analyzer using enzymatic creatinine methodology. Performed By: #### A PTT #### [address] [address] Electrolyte Balance 5.0 mEq/L Normal 4.0-15.0 [facility] Comment on above: Performed By: #### A PTT #### [address] [address] Glucose [Mass/Vol] 90 mg/dL Normal 82-115 [facility] Comment on above: Performed By: #### A PTT #### [address] [address] Potassium [Moles/Vol] 4.5 mmol/L Normal 3.5-5.0 [facility] Comment on above: Performed By: #### A PTT #### [address] [address] Sodium [Moles/Vol] 138 mmol/L Normal 136-145 [facility] Comment on above: Performed By: #### A PTT #### [place] [phone] Urea nitrogen [Mass/Vol] 25.0 mg/dL High 8.0-22.0 [facility] Comment on above: Performed By: #### A PTT #### [address] [address] CBCon 06-23-2025 Erythrocyte distribution width (RBC) [Ratio] 14.1 % Normal 11.5-15.5 [facility] Comment on above: Performed By: #### A PTT #### [address] [address] Hematocrit (Bld) [Volume fraction] 34.8 % Normal 34.0-46.0 [facility] Comment on above: Performed By: #### A PTT #### [address] [address] Hgb 11.4 G/dL Low 12.0-16.0 [facility] Comment on above: Performed By: #### A PTT #### [address] [address] MCH (RBC) [Entitic mass] 28.8 pg Normal 27.0-33.0 [facility] Comment on above: Performed By: #### A PTT #### [place] [address] MCHC 32.7 G/dL Normal 32.0-36.0 [facility] Comment on above: Performed By: #### A PTT #### [place] [address] MCV (RBC) [Entitic vol] 87.9 fL Normal 80.0-99.0 [facility] Comment on above: Performed By: #### A PTT #### [place] [address] Platelet 324 10 3/mcL Normal 150-450 [facility] MA[facility] Comment on above: Performed By: #### A PTT #### [place] [address] Platelet mean volume (Bld) [Entitic vol] 8.7 fL Normal 6.6-10.5 [facility] Comment on above: Performed By: #### A PTT #### [place] [address] RBC 3.96 10 6/mcL Low 4.10-5.30 [facility] Comment on above: Performed By: #### A PTT #### [place] [address] WBC 11.8 10 3/mcL High 4.5-10.8 [facility] Comment on above: Performed By: #### A PTT #### [place] [address] LABORATORYOrdered By: SYSTEM SYSTEM on 06-23-2025 Basophils [...] above: Interpretive Data: T esting performed on [employer] analyzer using enzymatic creatinine methodology. Electrolyte Balance [...] 06-23-2025 Magnesium [Mass/Vol] 2.3 mg/dL Normal 1.6-2.4 [facility] Comment on above: Performed By: #### A PTT #### [address] [address] .Auto Diffon 06-22-2025 Basophil, Absolute 0.0 10 3/mcL Normal 0.0-0.3 [facility] MA[facility] Comment on above: Performed By: #### L AC #### [address] [address] Basophils/100 WBC (Bld) 0.6 % Normal 0.0-2.5 [facility] Comment on above: Performed By: #### L AC #### [address] [address] Eosinophil, Absolute 0.0 10 3/mcL Normal 0.0-0.7 [facility] Comment on above: Performed By: #### L AC #### [address] [address] Eosinophils/100 WBC (Bld) 0.4 % Normal 0.0-6.0 [facility] Comment on above: Performed By: #### L AC #### [address] [address] Lymphocyte, Absolute 1.7 10 3/mcL Normal 0.9-4.3 [facility] Comment on above: Performed By: #### L AC #### [address] [address] Lymphocytes/100 WBC (Bld) 23.0 % Normal 20.0-40.0 [facility] Comment on above: Performed By: #### L AC #### [address] [address] Monocyte, Absolute 0.7 10 3/mcL Normal 0.1-1.4 [facility] Comment on above: Performed By: #### L AC #### [address] [address] Monocytes/100 WBC (Bld) 9.6 % Normal 2.0-13.0 [facility] Comment on above: Performed By: #### L AC #### [address] [address] Neutrophils/100 WBC (Bld) 66.4 % Normal 50.0-75.0 [facility] Comment on above: Performed By: #### L AC #### [address] [address] .GFRon 06-22-2025 Estimated Glomerular Filtration Rate 63 ml/min/1.73sqm Normal [facility] Comment on above: Result Comment: Stages [...] results. Performed By: #### L AC #### [place] [address] .NEUABSon 06-22-2025 Neutrophil, Absolute 5.0 10 3/mcL Normal 2.3-8.1 [facility] Comment on above: Performed By: #### L AC #### [place] [address] APTTon 06-22-2025 aPTT Coag (Bld) [Time] 47.8 s High 25.0-35.0 [facility] Comment on above: Result Comment: For Heparin anticoagulation therapy, the recommended therapeutic range is: 54-77 seconds (APTT Correlation with Anti-Xa therapeutic range of 0.3-0.7 units/ml). PLEASE REFERENCE THE PHARMACY PROTOCOL FOR DOSING. Performed By: #### L AC #### [place] [address] aPTT Coag (Bld) [Time] 48.7 s High 25.0-35.0 [facility] Comment on above: Result Comment: For Heparin anticoagulation therapy, the recommended therapeutic range is: 54-77 seconds (APTT Correlation with Anti-Xa therapeutic range of 0.3-0.7 units/ml). PLEASE REFERENCE THE PHARMACY PROTOCOL FOR DOSING. Performed By: #### A PTT ####[place] [address] aPTT Coag (Bld) [Time] 52.7 s High 25.0-35.0 [facility] Comment on above: Result Comment: For Heparin anticoagulation therapy, the recommended therapeutic range is: 54-77 seconds (APTT Correlation with Anti-Xa therapeutic range of 0.3-0.7 units/ml). PLEASE REFERENCE THE PHARMACY PROTOCOL FOR DOSING. Performed By: #### A PTT ####[place] [address] aPTT Coag (Bld) [Time] 49.2 s High 25.0-35.0 [facility] Comment on above: Result Comment: For Heparin anticoagulation therapy, the recommended therapeutic range is: 54-77 seconds (APTT Correlation with Anti-Xa therapeutic range of 0.3-0.7 units/ml). PLEASE REFERENCE THE PHARMACY PROTOCOL FOR DOSING. Performed By: #### A PTT ####[place] [address] BMPon 06-22-2025 BUN/Creatinine Ratio 30.2 ratio High 10.0-22.0 [facility] MAIN Comment on above: Performed By: #### L AC #### [place] [phone] Calcium [Mass/Vol] 8.6 mg/dL Low 8.7-10.4 [facility] Comment on above: Performed By: #### L AC #### [address] [address] Chloride [Moles/Vol] 101 mmol/L Normal 98-110 [facility] MA[facility] Comment on above: Performed By: #### L AC #### [place] [phone] CO2 [Moles/Vol] 29 mmol/L Normal 22-32 [facility] Comment on above: Performed By: #### L AC #### [place] [phone] Creatinine [Mass/Vol] 0.96 mg/dL Normal 0.50-1.20 [facility] Comment on above: Result Comment: Test ing performed on [employer] analyzer using enzymatic creatinine methodology. Performed By: #### L AC #### [place] [phone] Electrolyte Balance 9.0 mEq/L Normal 4.0-15.0 [facility] Comment on above: Performed By: #### L AC #### [address] [address] Glucose [Mass/Vol] 108 mg/dL Normal 82-115 [facility] MA[facility] Comment on above: Performed By: #### L AC #### [place] [phone] Potassium [Moles/Vol] 3.6 mmol/L Normal 3.5-5.0 [facility] Comment on above: Performed By: #### L AC #### [place] [phone] Sodium [Moles/Vol] 139 mmol/L Normal 136-145 [facility] MA[facility] Comment on above: Performed By: #### L AC #### [place] [phone] Urea nitrogen [Mass/Vol] 29.0 mg/dL High 8.0-22.0 [facility] Comment on above: Performed By: #### L AC #### [place] [phone] CBCon 06-22-2025 Erythrocyte distribution width (RBC) [Ratio] 13.9 % Normal 11.5-15.5 [facility] Comment on above: Performed By: #### L AC #### [place] [phone] Hematocrit (Bld) [Volume fraction] 34.9 % Normal 34.0-46.0 [facility] Comment on above: Performed By: #### L AC #### [place] [address] Hgb 11.5 G/dL Low 12.0-16.0 [facility] Comment on above: Performed By: #### L AC #### [place] [phone] MCH (RBC) [Entitic mass] 29.2 pg Normal 27.0-33.0 [facility] Comment on above: Performed By: #### L AC #### [place] [phone] MCHC 32.9 G/dL Normal 32.0-36.0 [facility] Comment on above: Performed By: #### L AC #### [place] [phone] MCV (RBC) [Entitic vol] 88.6 fL Normal 80.0-99.0 [facility] Comment on above: Performed By: #### L AC #### [place] [address] Platelet 316 10 3/mcL Normal 150-450 [facility] MA[facility] Comment on above: Performed By: #### L AC #### [place] [address] Platelet mean volume (Bld) [Entitic vol] 8.0 fL Normal 6.6-10.5 [facility] Comment on above: Performed By: #### L AC #### [place] [address] RBC 3.94 10 6/mcL Low 4.10-5.30 [facility] MA[facility] Comment on above: Performed By: #### L AC #### [place] [address] WBC 7.5 10 3/mcL Normal 4.5-10.8 [facility] MA[facility] Comment on above: Performed By: #### L AC #### [place] [address] MGon 06-22-2025 Magnesium [Mass/Vol] 2.1 mg/dL Normal 1.6-2.4 [facility] MA[facility] Comment on above: Performed By: #### L AC #### [place] [address] .Auto Diffon 06-21-2025 Basophil, Absolute 0.1 10 3/mcL Normal 0.0-0.3 [facility] MA[facility] Comment on above: Performed By: #### B G #### [place] [phone] Basophils/100 WBC (Bld) 0.7 % Normal 0.0-2.5 [facility] MA[facility] Comment on above: Performed By: #### B G #### [place] [phone] Eosinophil, Absolute 0.1 10 3/mcL Normal 0.0-0.7 [facility] Comment on above: Performed By: #### B G #### [facility] [address] [place] [address] Eosinophils/100 WBC (Bld) 0.8 % Normal 0.0-6.0 [facility] Comment on above: Performed By: #### B G #### [facility] [address] [place] [address] Lymphocyte, Absolute 2.8 10 3/mcL Normal 0.9-4.3 [facility] Comment on above: Performed By: #### B G #### [address] [address] Lymphocytes/100 WBC (Bld) 30.7 % Normal 20.0-40.0 [facility] Comment on above: Performed By: #### B G #### [address] [address] Monocyte, Absolute 1.0 10 3/mcL Normal 0.1-1.4 [facility] MA[facility] Comment on above: Performed By: #### B G #### [address] [address] Monocytes/100 WBC (Bld) 11.1 % Normal 2.0-13.0 [facility] Comment on above: Performed By: #### B G #### [address] [address] Neutrophils/100 WBC (Bld) 56.7 % Normal 50.0-75.0 [facility] Comment on above: Performed By: #### B G #### [address] [address] .GFRon 06-21-2025 Estimated Glomerular Filtration Rate 72 ml/min/1.73sqm Normal [facility] Comment on above: Result Comment: Stages [...] ADIFF, ANEU, APTT, CMP, HFP, GFR #### [address] [address] .NEUABSon 06-21-2025 Neutrophil, Absolute 5.1 10 3/mcL Normal 2.3-8.1 [facility] Comment on above: Performed By: #### B G #### [address] [address] APTTon 06-21-2025 aPTT Coag (Bld) [Time] 133.5 s Criticall y abnormal 25.0-35.0 [facility] MAIN Comment on above: Order Comment: [place] to nurse and they were not expecting results that were given from specimen.DH. Result Comment: For Heparin anticoagulation therapy, the recommended therapeutic range is: 54-77 seconds (APTT Correlation with Anti-Xa therapeutic range of 0.3-0.7 units/ml). PLEASE REFERENCE THE PHARMACY PROTOCOL FOR DOSING. Performed By: #### D RUGS #### [address] [address] aPTT Coag (Bld) [Time] 35.0 s Normal 25.0-35.0 [facility] Comment on above: Result Comment: For Heparin anticoagulation therapy, the recommended therapeutic range is: 54-77 seconds (APTT Correlation with Anti-Xa therapeutic range of 0.3-0.7 units/ml). PLEASE REFERENCE THE PHARMACY PROTOCOL FOR DOSING. Performed By: #### C BC, ADIFF, ANEU, APTT, CMP, HFP, GFR #### [address] [address] aPTT Coag (Bld) [Time] 46.2 s High 25.0-35.0 [facility] Comment on above: Result Comment: For Heparin anticoagulation therapy, the recommended therapeutic range is: 54-77 seconds (APTT Correlation with Anti-Xa therapeutic range of 0.3-0.7 units/ml). PLEASE REFERENCE THE PHARMACY PROTOCOL FOR DOSING. Performed By: #### A PTT #### [address] [address] BMPon 06-21-2025 BUN/Creatinine Ratio 27.9 ratio High 10.0-22.0 [facility] MAIN Comment on above: Performed By: #### C BC, ADIFF, ANEU, APTT, CMP, HFP, GFR #### [place] [phone] Calcium [Mass/Vol] 9.0 mg/dL Normal 8.7-10.4 [facility] MAIN Comment on above: Performed By: #### C BC, ADIFF, ANEU, APTT, CMP, HFP, GFR #### [place] [phone] Chloride [Moles/Vol] 100 mmol/L Normal 98-110 [facility] Comment on above: Performed By: #### C BC, ADIFF, ANEU, APTT, CMP, HFP, GFR #### [place] [phone] CO2 [Moles/Vol] 30 mmol/L Normal 22-32 [facility] Comment on above: Performed By: #### C BC, ADIFF, ANEU, APTT, CMP, HFP, GFR #### [place] [phone] Creatinine [Mass/Vol] 0.86 mg/dL Normal 0.50-1.20 [facility] Comment on above: Result Comment: Test ing performed on [employer] analyzer using enzymatic creatinine methodology. Performed By: #### C BC, ADIFF, ANEU, APTT, CMP, HFP, GFR #### [place] [phone] Electrolyte Balance 10.0 mEq/L Normal 4.0-15.0 [facility] Comment on above: Performed By: #### C BC, ADIFF, ANEU, APTT, CMP, HFP, GFR #### [place] [phone] Glucose [Mass/Vol] 91 mg/dL Normal 82-115 [facility] Comment on above: Performed By: #### C BC, ADIFF, ANEU, APTT, CMP, HFP, GFR #### [place] [phone] Potassium [Moles/Vol] 3.6 mmol/L Normal 3.5-5.0 [facility] Comment on above: Performed By: #### C BC, ADIFF, ANEU, APTT, CMP, HFP, GFR #### [place] [phone] Sodium [Moles/Vol] 140 mmol/L Normal 136-145 [facility] Comment on above: Performed By: #### C BC, ADIFF, ANEU, APTT, CMP, HFP, GFR #### [place] [phone] Urea nitrogen [Mass/Vol] 24.0 mg/dL High 8.0-22.0 [facility] Comment on above: Performed By: #### C BC, ADIFF, ANEU, APTT, CMP, HFP, GFR #### [place] [phone] CBCon 06-21-2025 Erythrocyte distribution width (RBC) [Ratio] 14.2 % Normal 11.5-15.5 [facility] Comment on above: Performed By: #### B G #### [place] [address] Hematocrit (Bld) [Volume fraction] 35.4 % Normal 34.0-46.0 [facility] Comment on above: Performed By: #### B G #### [place] [address] Hgb 11.8 G/dL Low 12.0-16.0 [facility] Comment on above: Performed By: #### B G #### [place] [phone] MCH (RBC) [Entitic mass] 29.0 pg Normal 27.0-33.0 [facility] Comment on above: Performed By: #### B G #### [place] [address] MCHC 33.4 G/dL Normal 32.0-36.0 [facility] Comment on above: Performed By: #### B G #### [place] [phone] MCV (RBC) [Entitic vol] 87.1 fL Normal 80.0-99.0 [facility] Comment on above: Performed By: #### B G #### [place] [address] Platelet 329 10 3/mcL Normal 150-450 [facility] Comment on above: Performed By: #### B G #### [place] [address] Platelet mean volume (Bld) [Entitic vol] 8.6 fL Normal 6.6-10.5 [facility] Comment on above: Performed By: #### B G #### [place] [address] RBC 4.07 10 6/mcL Low 4.10-5.30 [facility] Comment on above: Performed By: #### B G #### [place] [address] WBC 9.0 10 3/mcL Normal 4.5-10.8 [facility] Comment on above: Performed By: #### B G #### [place] [address] LABORATORYOrdered By: Mirtha Bennett on 06-21-2025 Glucose [Mass/Vol] 94 mg/dL Normal 82 - 115 mg/dL [facility] MGon 06-21-2025 Magnesium [Mass/Vol] 2.4 mg/dL Normal 1.6-2.4 [facility] Comment on above: Performed By: #### C BC, ADIFF, ANEU, APTT, CMP, HFP, GFR #### [place] [id number] .Auto Diffon 06-20-2025 Basophil, Absolute 0.0 10 3/mcL Normal 0.0-0.3 [facility] Comment on above: Performed By: #### L AC #### [place] [address] Basophils/100 WBC (Bld) 0.2 % Normal 0.0-2.5 [facility] Comment on above: Performed By: #### L AC #### [address] [address] Eosinophil, Absolute 0.0 10 3/mcL Normal 0.0-0.7 [facility] Comment on above: Performed By: #### L AC #### [address] [address] Eosinophils/100 WBC (Bld) 0.0 % Normal 0.0-6.0 [facility] Comment on above: Performed By: #### L AC #### [address] [address] Lymphocyte, Absolute 0.9 10 3/mcL Normal 0.9-4.3 [facility] Comment on above: Performed By: #### L AC #### [address] [address] Lymphocytes/100 WBC (Bld) 14.5 % Low 20.0-40.0 [facility] Comment on above: Performed By: #### L AC #### [address] [address] Monocyte, Absolute 0.5 10 3/mcL Normal 0.1-1.4 [facility] Comment on above: Performed By: #### L AC #### [address] [address] Monocytes/100 WBC (Bld) 7.8 % Normal 2.0-13.0 [facility] Comment on above: Performed By: #### L AC #### [address] [address] Neutrophils/100 WBC (Bld) 77.5 % High 50.0-75.0 [facility] Comment on above: Performed By: #### L AC #### [address] [address] .GFRon 06-20-2025 Estimated Glomerular Filtration Rate 53 ml/min/1.73sqm Normal [facility] Comment on above: Result Comment: Stages [...] results. Performed By: #### D RUGS #### [address] [address] .NEUABSon 06-20-2025 Neutrophil, Absolute 5.0 10 3/mcL Normal 2.3-8.1 [facility] Comment on above: Performed By: #### L AC #### [place] [address] APTTon 06-20-2025 aPTT Coag (Bld) [Time] 49.7 s High 25.0-35.0 [facility] Comment on above: Result Comment: Resu lts verified by repeat analysis. - 03006 - 06/20/25, 6:34 PM For Heparin anticoagulation therapy, the recommended therapeutic range is: 54-77 seconds (APTT Correlation with Anti-Xa therapeutic range of 0.3-0.7 units/ml). PLEASE REFERENCE THE PHARMACY PROTOCOL FOR DOSING. Performed By: #### L AC #### [place] [address] aPTT Coag (Bld) [Time] 73.1 s High 25.0-35.0 [facility] Comment on above: Result Comment: For Heparin anticoagulation therapy, the recommended therapeutic range is: 54-77 seconds (APTT Correlation with Anti-Xa therapeutic range of 0.3-0.7 units/ml). PLEASE REFERENCE THE PHARMACY PROTOCOL FOR DOSING. Performed By: #### A PTT ####[place] [address] aPTT Coag (Bld) [Time] 67.1 s High 25.0-35.0 [facility] Comment on above: Result Comment: For Heparin anticoagulation therapy, the recommended therapeutic range is: 54-77 seconds (APTT Correlation with Anti-Xa therapeutic range of 0.3-0.7 units/ml). PLEASE REFERENCE THE PHARMACY PROTOCOL FOR DOSING. Performed By: #### A PTT ####[address] [address] BMPon 06-20-2025 BUN/Creatinine Ratio 37.8 ratio High 10.0-22.0 [facility] Comment on above: Performed By: #### L AC #### [address] [address] Calcium [Mass/Vol] 8.9 mg/dL Normal 8.7-10.4 [facility]IN Comment on above: Performed By: #### L AC #### [address] [address] Chloride [Moles/Vol] 98 mmol/L Normal 98-110 [facility] Comment on above: Performed By: #### L AC #### [address] [address] CO2 [Moles/Vol] 30 mmol/L Normal 22-32 [facility] Comment on above: Performed By: #### L AC #### [place] [phone] Creatinine [Mass/Vol] 1.11 mg/dL Normal 0.50-1.20 [facility] Comment on above: Result Comment: Test ing performed on [employer] analyzer using enzymatic creatinine methodology. Performed By: #### L AC #### [address] [address] Electrolyte Balance 11.0 mEq/L Normal 4.0-15.0 [facility] Comment on above: Performed By: #### L AC #### [place] [phone] Glucose [Mass/Vol] 116 mg/dL High 82-115 [facility] Comment on above: Performed By: #### L AC #### [place] [phone] Potassium [Moles/Vol] 3.5 mmol/L Normal 3.5-5.0 [facility] Comment on above: Performed By: #### L AC #### [place] [phone] Sodium [Moles/Vol] 139 mmol/L Normal 136-145 [facility] Comment on above: Performed By: #### L AC #### [place] [phone] Urea nitrogen [Mass/Vol] 42.0 mg/dL High 8.0-22.0 [facility] Comment on above: Performed By: #### L AC #### [place] [phone] CBCon 06-20-2025 Erythrocyte distribution width (RBC) [Ratio] 14.1 % Normal 11.5-15.5 [facility] Comment on above: Performed By: #### L AC #### [place] [phone] Hematocrit (Bld) [Volume fraction] 33.0 % Low 34.0-46.0 [facility] Comment on above: Performed By: #### L AC #### [place] [phone] Hgb 11.1 G/dL Low 12.0-16.0 [facility] Comment on above: Performed By: #### L AC #### [place] [phone] MCH (RBC) [Entitic mass] 29.3 pg Normal 27.0-33.0 [facility] Comment on above: Performed By: #### L AC #### [place] [phone] MCHC 33.6 G/dL Normal 32.0-36.0 [facility] Comment on above: Performed By: #### L AC #### [place] [phone] MCV (RBC) [Entitic vol] 87.2 fL Normal 80.0-99.0 [facility] Comment on above: Performed By: #### L AC #### [place] [phone] Platelet 290 10 3/mcL Normal 150-450 [facility] Comment on above: Performed By: #### L AC #### [address] [address] Platelet mean volume (Bld) [Entitic vol] 8.2 fL Normal 6.6-10.5 [facility] Comment on above: Performed By: #### L AC #### [address] [address] RBC 3.78 10 6/mcL Low 4.10-5.30 [facility] Comment on above: Performed By: #### L AC #### [address] [address] WBC 6.4 10 3/mcL Normal 4.5-10.8 [facility] Comment on above: Performed By: #### L AC #### [place] [phone] MGon 06-20-2025 Magnesium [Mass/Vol] 2.5 mg/dL High 1.6-2.4 [facility] Comment on above: Performed By: #### L AC #### [address] [address] .Auto Diffon 06-19-2025 Basophil, Absolute 0.0 10 3/mcL Normal 0.0-0.3 [facility] Comment on above: Performed By: #### C BC, ADIFF, ANEU, APTT, CMP, HFP, GFR #### [address] [address] Basophils/100 WBC (Bld) 0.1 % Normal 0.0-2.5 [facility] Comment on above: Performed By: #### C BC, ADIFF, ANEU, APTT, CMP, HFP, GFR #### [address] [address] Eosinophil, Absolute 0.0 10 3/mcL Normal 0.0-0.7 [facility] Comment on above: Performed By: #### C BC, ADIFF, ANEU, APTT, CMP, HFP, GFR #### [address] [address] Eosinophils/100 WBC (Bld) 0.0 % Normal 0.0-6.0 [facility] Comment on above: Performed By: #### C BC, ADIFF, ANEU, APTT, CMP, HFP, GFR #### [place] [phone] [address] [place] [address] Lymphocyte, Absolute 0.7 10 3/mcL Low 0.9-4.3 [facility] Comment on above: Performed By: #### C BC, ADIFF, ANEU, APTT, CMP, HFP, GFR #### [address] [address] Lymphocytes/100 WBC (Bld) 12.6 % Low 20.0-40.0 [facility] Comment on above: Performed By: #### C BC, ADIFF, ANEU, APTT, CMP, HFP, GFR #### [address] [address] Monocyte, Absolute 0.3 10 3/mcL Normal 0.1-1.4 [facility] Comment on above: Performed By: #### C BC, ADIFF, ANEU, APTT, CMP, HFP, GFR #### [address] [address] Monocytes/100 WBC (Bld) 5.8 % Normal 2.0-13.0 [facility] Comment on above: Performed By: #### C BC, ADIFF, ANEU, APTT, CMP, HFP, GFR #### [address] [address] Neutrophils/100 WBC (Bld) 81.5 % High 50.0-75.0 [facility] Comment on above: Performed By: #### C BC, ADIFF, ANEU, APTT, CMP, HFP, GFR #### [address] [address] .GFRon 06-19-2025 Estimated Glomerular Filtration Rate 52 ml/min/1.73sqm Normal [facility] Comment on above: Result Comment: Stages [...] ADIFF, ANEU, APTT, CMP, HFP, GFR #### [address] [address] Estimated Glomerular Filtration Rate 71 ml/min/1.73sqm Normal [facility] Comment on above: Result Comment: Stages [...] results. Performed By: #### L AC #### [address] [address] .NEUABSon 06-19-2025 Neutrophil, Absolute 4.7 10 3/mcL Normal 2.3-8.1 [facility] Comment on above: Performed By: #### L AC #### [address] [address] APTTon 06-19-2025 aPTT Coag (Bld) [Time] 52.6 s High 25.0-35.0 [facility] Comment on above: Result Comment: For Heparin anticoagulation therapy, the recommended therapeutic range is: 54-77 seconds (APTT Correlation with Anti-Xa therapeutic range of 0.3-0.7 units/ml). PLEASE REFERENCE THE PHARMACY PROTOCOL FOR DOSING. Performed By: #### A PTT #### [address] [address] aPTT Coag (Bld) [Time] 73.6 s High 25.0-35.0 [facility] Comment on above: Result Comment: For Heparin anticoagulation therapy, the recommended therapeutic range is: 54-77 seconds (APTT Correlation with Anti-Xa therapeutic range of 0.3-0.7 units/ml). PLEASE REFERENCE THE PHARMACY PROTOCOL FOR DOSING. Performed By: #### A PTT #### [place] [phone] aPTT Coag (Bld) [Time] 65.1 s High 25.0-35.0 [facility] Comment on above: Result Comment: For Heparin anticoagulation therapy, the recommended therapeutic range is: 54-77 seconds (APTT Correlation with Anti-Xa therapeutic range of 0.3-0.7 units/ml). PLEASE REFERENCE THE PHARMACY PROTOCOL FOR DOSING. Performed By: #### L AC #### [address] [address] BMPon 06-19-2025 BUN/Creatinine Ratio 34.5 ratio High 10.0-22.0 [facility] MA[facility] Comment on above: Performed By: #### C BC, ADIFF, ANEU, APTT, CMP, HFP, GFR #### [address] [address] Calcium [Mass/Vol] 8.6 mg/dL Low 8.7-10.4 [facility] MAIN Comment on above: Performed By: #### C BC, ADIFF, ANEU, APTT, CMP, HFP, GFR #### [address] [address] Chloride [Moles/Vol] 99 mmol/L Normal 98-110 [facility] Comment on above: Performed By: #### C BC, ADIFF, ANEU, APTT, CMP, HFP, GFR #### [address] [address] CO2 [Moles/Vol] 29 mmol/L Normal 22-32 [facility] Comment on above: Performed By: #### C BC, ADIFF, ANEU, APTT, CMP, HFP, GFR #### [address] [address] Creatinine [Mass/Vol] 1.13 mg/dL Normal 0.50-1.20 [facility] MA[facility] Comment on above: Result Comment: Test ing performed on [employer] analyzer using enzymatic creatinine methodology. Performed By: #### C BC, ADIFF, ANEU, APTT, CMP, HFP, GFR #### [address] [address] Electrolyte Balance 12.0 mEq/L Normal 4.0-15.0 [facility] Comment on above: Performed By: #### C BC, ADIFF, ANEU, APTT, CMP, HFP, GFR #### [address] [address] Glucose [Mass/Vol] 156 mg/dL High 82-115 [facility] MAIN Comment on above: Performed By: #### C BC, ADIFF, ANEU, APTT, CMP, HFP, GFR #### [place] [phone] Potassium [Moles/Vol] 3.6 mmol/L Normal 3.5-5.0 [facility] Comment on above: Performed By: #### C BC, ADIFF, ANEU, APTT, CMP, HFP, GFR #### [address] [address] Sodium [Moles/Vol] 140 mmol/L Normal 136-145 [facility] MA[facility] Comment on above: Performed By: #### C BC, ADIFF, ANEU, APTT, CMP, HFP, GFR #### [address] [address] Urea nitrogen [Mass/Vol] 39.0 mg/dL High 8.0-22.0 [facility] Comment on above: Performed By: #### C BC, ADIFF, ANEU, APTT, CMP, HFP, GFR #### [address] [address] CBCon 06-19-2025 Erythrocyte distribution width (RBC) [Ratio] 14.3 % Normal 11.5-15.5 [facility] Comment on above: Performed By: #### C BC, ADIFF, ANEU, APTT, CMP, HFP, GFR #### [place] [address] Hematocrit (Bld) [Volume fraction] 33.7 % Low 34.0-46.0 [facility] Comment on above: Performed By: #### C BC, ADIFF, ANEU, APTT, CMP, HFP, GFR #### [place] [address] Hgb 11.3 G/dL Low 12.0-16.0 [facility] Comment on above: Performed By: #### C BC, ADIFF, ANEU, APTT, CMP, HFP, GFR #### [place] [address] MCH (RBC) [Entitic mass] 29.4 pg Normal 27.0-33.0 [facility] Comment on above: Performed By: #### C BC, ADIFF, ANEU, APTT, CMP, HFP, GFR #### [place] [address] MCHC 33.6 G/dL Normal 32.0-36.0 [facility] Comment on above: Performed By: #### C BC, ADIFF, ANEU, APTT, CMP, HFP, GFR #### [place] [address] MCV (RBC) [Entitic vol] 87.4 fL Normal 80.0-99.0 [facility] Comment on above: Performed By: #### C BC, ADIFF, ANEU, APTT, CMP, HFP, GFR #### [place] [address] Platelet 272 10 3/mcL Normal 150-450 [facility] MA[facility] Comment on above: Performed By: #### C BC, ADIFF, ANEU, APTT, CMP, HFP, GFR #### [place] [address] Platelet mean volume (Bld) [Entitic vol] 7.9 fL Normal 6.6-10.5 [facility] Comment on above: Performed By: #### C BC, ADIFF, ANEU, APTT, CMP, HFP, GFR #### [place] [address] RBC 3.86 10 6/mcL Low 4.10-5.30 [facility] Comment on above: Performed By: #### C BC, ADIFF, ANEU, APTT, CMP, HFP, GFR #### [place] [address] WBC 5.8 10 3/mcL Normal 4.5-10.8 [facility] Comment on above: Performed By: #### C BC, ADIFF, ANEU, APTT, CMP, HFP, GFR #### [place] [address] CMPon 06-19-2025 Albumin Level 2.9 G/dL Low 3.2-4.8 [facility]IN Comment on above: Performed By: #### L AC #### [place] [address] Albumin/Globulin [Mass ratio] 0.9 {ratio} Normal 0.9-1.6 [facility] Comment on above: Performed By: #### L AC #### [place] [address] ALP [Catalytic activity/Vol] 76 U/L Normal 38-126 [facility] MA[facility] Comment on above: Performed By: #### L AC #### [place] [address] ALT [Catalytic activity/Vol] 57 U/L High 10-49 [facility] Comment on above: Performed By: #### L AC #### [place] [address] AST [Catalytic activity/Vol] 36 U/L High 8-34 [facility] Comment on above: Performed By: #### L AC #### [place] [address] Bili Total 0.50 mg/dL Normal 0.20-1.20 [facility] MAIN Comment on above: Result Comment: Use of this assay is not recommended for patients undergoing treatment with eltrombopag due to the potential for falsely elevated results. Performed By: #### L AC #### [place] [phone] BUN/Creatinine Ratio 36.8 ratio High 10.0-22.0 [facility] Comment on above: Performed By: #### L AC #### [address] [address] Calcium [Mass/Vol] 8.8 mg/dL Normal 8.7-10.4 [facility] MAIN Comment on above: Performed By: #### L AC #### [address] [address] Chloride [Moles/Vol] 105 mmol/L Normal 98-110 [facility] Comment on above: Performed By: #### L AC #### [address] [address] CO2 [Moles/Vol] 32 mmol/L Normal 22-32 [facility] Comment on above: Performed By: #### L AC #### [place] [phone] Creatinine [Mass/Vol] 0.87 mg/dL Normal 0.50-1.20 [facility] Comment on above: Result Comment: Test ing performed on [employer] analyzer using enzymatic creatinine methodology. Performed By: #### L AC #### [address] [address] Electrolyte Balance 12.0 mEq/L Normal 4.0-15.0 [facility] Comment on above: Performed By: #### L AC #### [place] [phone] Globulin 3.2 G/dL Normal 2.5-4.2 [facility] MA[facility] Comment on above: Performed By: #### L AC #### [address] [address] Glucose [Mass/Vol] 139 mg/dL High 82-115 [facility] MA[facility] Comment on above: Performed By: #### L AC #### [place] [phone] Potassium [Moles/Vol] 3.7 mmol/L Normal 3.5-5.0 [facility] Comment on above: Performed By: #### L AC #### [address] [address] Sodium [Moles/Vol] 149 mmol/L High 136-145 [facility] MA[facility] Comment on above: Performed By: #### L AC #### [place] [phone] Total Protein 6.1 G/dL Normal 5.7-8.2 [facility] Comment on above: Performed By: #### L AC #### [place] [phone] Urea nitrogen [Mass/Vol] 32.0 mg/dL High 8.0-22.0 [facility] Comment on above: Performed By: #### L AC #### [address] [address] HFPon 06-19-2025 Bili Indirect 0.4 mg/dL Normal 0.1-10.0 [facility]IN Comment on above: Performed By: #### L AC #### [place] [address] Bili Direct 0.1 mg/dL Normal 0.0-0.4 [facility] Comment on above: Result Comment: Use of this assay is not recommended for patients undergoing treatment with eltrombopag due to the potential for falsely elevated results. Performed By: #### L AC #### [place] [address] LABORATORYOrdered By: SYSTEM SYSTEM on 06-19-2025 Bili [...] 06/19/2025 8:06:42 AM Ordering Provider: ADRIANA Soto [facility] .Auto Diffon 06-18-2025 Basophil, Absolute 0.0 10 3/mcL Normal 0.0-0.3 [facility] Comment on above: Performed By: #### B G #### [facility] [address] [place] [address] Basophils/100 WBC (Bld) 0.1 % Normal 0.0-2.5 [facility] Comment on above: Performed By: #### B G #### [facility] [address] [place] [address] Eosinophil, Absolute 0.0 10 3/mcL Normal 0.0-0.7 [facility] Comment on above: Performed By: #### B G #### [facility] [address] [place] [address] Eosinophils/100 WBC (Bld) 0.0 % Normal 0.0-6.0 [facility] Comment on above: Performed By: #### B G #### [address] [address] Lymphocyte, Absolute 0.6 10 3/mcL Low 0.9-4.3 [facility] Comment on above: Performed By: #### B G #### [address] [address] Lymphocytes/100 WBC (Bld) 8.9 % Low 20.0-40.0 [facility] Comment on above: Performed By: #### B G #### [address] [address] Monocyte, Absolute 0.3 10 3/mcL Normal 0.1-1.4 [facility] Comment on above: Performed By: #### B G #### [address] [address] Monocytes/100 WBC (Bld) 4.4 % Normal 2.0-13.0 [facility] Comment on above: Performed By: #### B G #### [address] [address] Neutrophils/100 WBC (Bld) 86.6 % High 50.0-75.0 [facility] Comment on above: Performed By: #### B G #### [address] [address] .GFRon 06-18-2025 Estimated Glomerular Filtration Rate 59 ml/min/1.73sqm Normal [facility] Comment on above: Result Comment: Stages [...] results. Performed By: #### B G #### [place] [address] .NEUABSon 06-18-2025 Neutrophil, Absolute 6.0 10 3/mcL Normal 2.3-8.1 [facility] Comment on above: Performed By: #### B G #### [place] [address] APTTon 06-18-2025 aPTT Coag (Bld) [Time] 68.1 s High 25.0-35.0 [facility] Comment on above: Result Comment: For Heparin anticoagulation therapy, the recommended therapeutic range is: 54-77 seconds (APTT Correlation with Anti-Xa therapeutic range of 0.3-0.7 units/ml). PLEASE REFERENCE THE PHARMACY PROTOCOL FOR DOSING. Performed By: #### A PTT ####[place] [address] aPTT Coag (Bld) [Time] 40.6 s High 25.0-35.0 [facility] Comment on above: Result Comment: For Heparin anticoagulation therapy, the recommended therapeutic range is: 54-77 seconds (APTT Correlation with Anti-Xa therapeutic range of 0.3-0.7 units/ml). PLEASE REFERENCE THE PHARMACY PROTOCOL FOR DOSING. Performed By: #### D RUGS #### [place] [address] aPTT Coag (Bld) [Time] 51.7 s High 25.0-35.0 [facility] Comment on above: Result Comment: For Heparin anticoagulation therapy, the recommended therapeutic range is: 54-77 seconds (APTT Correlation with Anti-Xa therapeutic range of 0.3-0.7 units/ml). PLEASE REFERENCE THE PHARMACY PROTOCOL FOR DOSING. Performed By: #### L AC #### [address] [address] [facility] 06-18-2025 Base excess Calc (Bld) [Moles/Vol] 2.9 mmol/L Normal [facility] Comment on above: Performed By: #### B G #### [address] [address] CO2 [Moles/Vol] 27.8 mmol/L Normal 22.0-30.0 [facility] Comment on above: Performed By: #### B G #### [place] [phone] HCO3 (Bld) [Moles/Vol] 26.6 mmol/L Normal 21.0-29.0 [facility] Comment on above: Performed By: #### B G #### [place] [phone] Oxygen (Bld) [Partial pressure] 98.2 mm[Hg] Normal 74.0-108.0 [facility] Comment on above: Performed By: #### B G #### [place] [phone] Oxygen saturation in Blood 97.1 % High 92.0-96.0 [facility] Comment on above: Performed By: #### B G #### [place] [phone] pCO2 37.4 mmHg Normal 32.0-46.0 [facility] Comment on above: Performed By: #### B G #### [place] [phone] pH (Bld) 7.470 [pH] High 7.380-7.460 [facility] Comment on above: Performed By: #### B G #### [address] [address] [facility] BUN/Creatinine Ratio 31.4 ratio High 10.0-22.0 [facility] Comment on above: Performed By: #### B G #### [place] [phone] Calcium [Mass/Vol] 8.8 mg/dL Normal 8.7-10.4 [facility] Comment on above: Performed By: #### B G #### [address] [address] Chloride [Moles/Vol] 105 mmol/L Normal 98-110 [facility] Comment on above: Performed By: #### B G #### [address] [address] CO2 [Moles/Vol] 31 mmol/L Normal 22-32 [facility] Comment on above: Performed By: #### B G #### [address] [address] Creatinine [Mass/Vol] 1.02 mg/dL Normal 0.50-1.20 [facility] Comment on above: Result Comment: Test ing performed on [employer] analyzer using enzymatic creatinine methodology. Performed By: #### B G #### [address] [address] Electrolyte Balance 7.0 mEq/L Normal 4.0-15.0 [facility] Comment on above: Performed By: #### B G #### [address] [address] Glucose [Mass/Vol] 145 mg/dL High 82-115 [facility] Comment on above: Performed By: #### B G #### [address] [address] Potassium [Moles/Vol] 3.6 mmol/L Normal 3.5-5.0 [facility] Comment on above: Performed By: #### B G #### [address] [address] Sodium [Moles/Vol] 143 mmol/L Normal 136-145 [facility] Comment on above: Performed By: #### B G #### [address] [address] Urea nitrogen [Mass/Vol] 32.0 mg/dL High 8.0-22.0 [facility] Comment on above: Performed By: #### B G #### [address] [address] CAIONon 06-18-2025 Calcium Ionized 1.09 mmol/L Low 1.12-1.32 [facility] MA[facility] Comment on above: Performed By: #### B G #### [address] [address] CBCon 06-18-2025 Erythrocyte distribution width (RBC) [Ratio] 14.4 % Normal 11.5-15.5 [facility] Comment on above: Performed By: #### B G #### [place] [phone] Hematocrit (Bld) [Volume fraction] 33.0 % Low 34.0-46.0 [facility] Comment on above: Performed By: #### B G #### [place] [address] Hgb 11.0 G/dL Low 12.0-16.0 [facility] Comment on above: Performed By: #### B G #### [place] [address] MCH (RBC) [Entitic mass] 29.4 pg Normal 27.0-33.0 [facility] Comment on above: Performed By: #### B G #### [place] [address] MCHC 33.4 G/dL Normal 32.0-36.0 [facility] Comment on above: Performed By: #### B G #### [place] [phone] MCV (RBC) [Entitic vol] 88.0 fL Normal 80.0-99.0 [facility]IN Comment on above: Performed By: #### B G #### [place] [phone] Platelet 268 10 3/mcL Normal 150-450 [facility] Comment on above: Performed By: #### B G #### [place] [phone] Platelet mean volume (Bld) [Entitic vol] 7.7 fL Normal 6.6-10.5 [facility] Comment on above: Performed By: #### B G #### [facility] [address] [place] [address] RBC 3.75 10 6/mcL Low 4.10-5.30 [facility] Comment on above: Performed By: #### B G #### [facility] [address] [place] [address] WBC 6.9 10 3/mcL Normal 4.5-10.8 [facility] Comment on above: Performed By: #### B G #### [facility] [address] [place] [address] LABORATORYOrdered By: Shelbie freitas on 06-18-2025 Blood Glucose Testing Reason Routine (06/18/25 11:16 PM) [facility] Glucose [Mass/Vol] 137 mg/dL High 82 - 115 mg/dL [facility] Blood Glucose Testing Reason Routine (06/18/25 7:15 PM) [facility] Glucose [Mass/Vol] 151 mg/dL High 82 - 115 mg/dL [facility] Blood Glucose Testing Reason Routine (06/18/25 4:00 PM) [facility] LABORATORYOrdered By: Rohit sarabia on 06-18-2025 [...] 06-18-2025 Magnesium [Mass/Vol] 2.5 mg/dL High 1.6-2.4 [facility] MA[facility] Comment on above: Performed By: #### B G #### [address] [address] XR CHEST 1 VIEWon 06-18-2025 XR CHEST [...] 06/18/2025 7:12:41 AM Ordering Provider: ARIAS Soto [facility] .Auto Diffon 06-17-2025 Basophil, Absolute 0.1 10 3/mcL Normal 0.0-0.3 [facility] Comment on above: Performed By: #### L AC #### [address] [address] Basophils/100 WBC (Bld) 0.9 % Normal 0.0-2.5 [facility] Comment on above: Performed By: #### L AC #### [address] [address] Eosinophil, Absolute 0.1 10 3/mcL Normal 0.0-0.7 [facility] Comment on above: Performed By: #### L AC #### [address] [address] Eosinophils/100 WBC (Bld) 0.8 % Normal 0.0-6.0 [facility] Comment on above: Performed By: #### L AC #### [facility] [address] [place] [address] Lymphocyte, Absolute 1.6 10 3/mcL Normal 0.9-4.3 [facility] Comment on above: Performed By: #### L AC #### [facility] [address] [place] [address] Lymphocytes/100 WBC (Bld) 17.8 % Low 20.0-40.0 [facility] Comment on above: Performed By: #### L AC #### [facility] [address] [place] [address] Monocyte, Absolute 0.7 10 3/mcL Normal 0.1-1.4 [facility] MA[facility] Comment on above: Performed By: #### L AC #### [address] [address] Monocytes/100 WBC (Bld) 8.1 % Normal 2.0-13.0 [facility] Comment on above: Performed By: #### L AC #### [address] [address] Neutrophils/100 WBC (Bld) 72.4 % Normal 50.0-75.0 [facility] Comment on above: Performed By: #### L AC #### [address] [address] .GFRon 06-17-2025 Estimated Glomerular Filtration Rate 57 ml/min/1.73sqm Normal [facility] Comment on above: Result Comment: Stages [...] results. Performed By: #### L AC #### [address] [address] .NEUABSon 06-17-2025 Neutrophil, Absolute 6.5 10 3/mcL Normal 2.3-8.1 [facility] Comment on above: Performed By: #### L AC #### [place] [phone] APTTon 06-17-2025 aPTT Coag (Bld) [Time] 46.8 s High 25.0-35.0 [facility] Comment on above: Result Comment: For Heparin anticoagulation therapy, the recommended therapeutic range is: 54-77 seconds (APTT Correlation with Anti-Xa therapeutic range of 0.3-0.7 units/ml). PLEASE REFERENCE THE PHARMACY PROTOCOL FOR DOSING. Performed By: #### A PTT #### [place] [address] aPTT Coag (Bld) [Time] 40.2 s High 25.0-35.0 [facility] Comment on above: Result Comment: For Heparin anticoagulation therapy, the recommended therapeutic range is: 54-77 seconds (APTT Correlation with Anti-Xa therapeutic range of 0.3-0.7 units/ml). PLEASE REFERENCE THE PHARMACY PROTOCOL FOR DOSING. Performed By: #### A PTT #### [place] [address] aPTT Coag (Bld) [Time] 54.3 s High 25.0-35.0 [facility] Comment on above: Result Comment: For Heparin anticoagulation therapy, the recommended therapeutic range is: 54-77 seconds (APTT Correlation with Anti-Xa therapeutic range of 0.3-0.7 units/ml). PLEASE REFERENCE THE PHARMACY PROTOCOL FOR DOSING. Performed By: #### A PTT ####[place] [address] aPTT Coag (Bld) [Time] 71.7 s High 25.0-35.0 [facility] Comment on above: Result Comment: For Heparin anticoagulation therapy, the recommended therapeutic range is: 54-77 seconds (APTT Correlation with Anti-Xa therapeutic range of 0.3-0.7 units/ml). PLEASE REFERENCE THE PHARMACY PROTOCOL FOR DOSING. Performed By: #### A PTT ####[address] [address] BGon 06-17-2025 Base excess Calc (Bld) [Moles/Vol] 1.3 mmol/L Normal [facility] Comment on above: Performed By: #### L AC #### [place] [phone] CO2 [Moles/Vol] 26.5 mmol/L Normal 22.0-30.0 [facility] Comment on above: Performed By: #### L AC #### [address] [address] HCO3 (Bld) [Moles/Vol] 25.3 mmol/L Normal 21.0-29.0 [facility] Comment on above: Performed By: #### L AC #### [place] [phone] Oxygen (Bld) [Partial pressure] 104.6 mm[Hg] Normal 74.0-108.0 [facility] Comment on above: Performed By: #### L AC #### [place] [phone] Oxygen saturation in Blood 97.7 % High 92.0-96.0 [facility] Comment on above: Performed By: #### L AC #### [place] [phone] pCO2 38.0 mmHg Normal 32.0-46.0 [facility] Comment on above: Performed By: #### L AC #### [place] [phone] pH (Bld) 7.442 [pH] Normal 7.380-7.460 [facility] Comment on above: Performed By: #### L AC #### [address] [address] CBCon 06-17-2025 Erythrocyte distribution width (RBC) [Ratio] 14.0 % Normal 11.5-15.5 [facility] Comment on above: Performed By: #### L AC #### [place] [address] Hematocrit (Bld) [Volume fraction] 32.8 % Low 34.0-46.0 [facility] Comment on above: Performed By: #### L AC #### [place] [address] Hgb 10.9 G/dL Low 12.0-16.0 [facility] Comment on above: Performed By: #### L AC #### [place] [address] MCH (RBC) [Entitic mass] 29.4 pg Normal 27.0-33.0 [facility] Comment on above: Performed By: #### L AC #### [place] [address] MCHC 33.2 G/dL Normal 32.0-36.0 [facility] Comment on above: Performed By: #### L AC #### [place] [address] MCV (RBC) [Entitic vol] 88.5 fL Normal 80.0-99.0 [facility] Comment on above: Performed By: #### L AC #### [place] [address] Platelet 240 10 3/mcL Normal 150-450 [facility] Comment on above: Performed By: #### L AC #### [place] [address] Platelet mean volume (Bld) [Entitic vol] 7.5 fL Normal 6.6-10.5 [facility] Comment on above: Performed By: #### L AC #### [place] [address] RBC 3.71 10 6/mcL Low 4.10-5.30 [facility] Comment on above: Performed By: #### L AC #### [place] [phone] WBC 9.0 10 3/mcL Normal 4.5-10.8 [facility] Comment on above: Performed By: #### L AC #### [place] [address] [facility] 06-17-2025 Albumin Level 2.8 G/dL Low 3.2-4.8 [facility] Comment on above: Performed By: #### L AC #### [place] [phone] Albumin/Globulin [Mass ratio] 1.0 {ratio} Normal 0.9-1.6 [facility] Comment on above: Performed By: #### L AC #### [place] [address] ALP [Catalytic activity/Vol] 90 U/L Normal 38-126 [facility] Comment on above: Performed By: #### L AC #### [place] [phone] ALT [Catalytic activity/Vol] 85 U/L High 10-49 [facility] Comment on above: Performed By: #### L AC #### [place] [phone] AST [Catalytic activity/Vol] 97 U/L High 8-34 [facility] Comment on above: Performed By: #### L AC #### [place] [phone] Bili Total 0.40 mg/dL Normal 0.20-1.20 [facility] Comment on above: Result Comment: Use of this assay is not recommended for patients undergoing treatment with eltrombopag due to the potential for falsely elevated results. Performed By: #### L AC #### [place] [address] BUN/Creatinine Ratio 28.6 ratio High 10.0-22.0 [facility] Comment on above: Performed By: #### L AC #### [place] [phone] Calcium [Mass/Vol] 8.5 mg/dL Low 8.7-10.4 [facility] MAIN Comment on above: Performed By: #### L AC #### [place] [phone] Chloride [Moles/Vol] 103 mmol/L Normal 98-110 [facility] MA[facility] Comment on above: Performed By: #### L AC #### [address] [address] CO2 [Moles/Vol] 28 mmol/L Normal 22-32 [facility] Comment on above: Performed By: #### L AC #### [address] [address] Creatinine [Mass/Vol] 1.05 mg/dL Normal 0.50-1.20 [facility] Comment on above: Result Comment: Test ing performed on [employer] analyzer using enzymatic creatinine methodology. Performed By: #### L AC #### [address] [address] Electrolyte Balance 8.0 mEq/L Normal 4.0-15.0 [facility] Comment on above: Performed By: #### L AC #### [address] [address] Globulin 2.8 G/dL Normal 2.5-4.2 [facility] Comment on above: Performed By: #### L AC #### [address] [address] Glucose [Mass/Vol] 106 mg/dL Normal 82-115 [facility] MAIN Comment on above: Performed By: #### L AC #### [address] [address] Potassium [Moles/Vol] 4.0 mmol/L Normal 3.5-5.0 [facility] Comment on above: Performed By: #### L AC #### [address] [address] Sodium [Moles/Vol] 139 mmol/L Normal 136-145 [facility] MAIN Comment on above: Performed By: #### L AC #### [address] [address] Total Protein 5.6 G/dL Low 5.7-8.2 [facility] Comment on above: Performed By: #### L AC #### [address] [address] Urea nitrogen [Mass/Vol] 30.0 mg/dL High 8.0-22.0 [facility] Comment on above: Performed By: #### L AC #### [place] [address] LABORATORYOrdered By: SYSTEM SYSTEM on 06-17-2025 Troponin I.cardiac DL <= 0.01 ng/mL [Mass/Vol] 713 ng/L High 0 - 34 ng/L ADM SS Comment on above: Interpretive Data: High Sensitive Troponin I Reference Ranges: Female: 0-34 ng/L Male: 0-54 ng/L Testing performed on [employer] IM analyzer using direct chemiluminescent technology. LABORATORYOrdered [...] 06-17-2025 Magnesium [Mass/Vol] 2.1 mg/dL Normal 1.6-2.4 [facility] MA[facility] Comment on above: Performed By: #### L AC #### [place] [address] TROPHSon 06-17-2025 High Sensitivity Troponin I 713 ng/L High 0-34 [facility] MA[facility] Comment on above: Result Comment: High Sensitive Troponin I Reference Ranges: Female: 0-34 ng/L Male: 0-54 ng/L Testing performed on [employer] analyzer using direct chemiluminescent technology. Performed By: #### C BC, ADIFF, ANEU, APTT, CMP, HFP, GFR #### [place] [address] XR CHEST 1 VIEWon 06-17-2025 XR CHEST [...] 06/17/2025 6:58:17 AM Ordering Provider: DEVIN Soto [facility] MA[facility] .Auto Diffon 06-16-2025 Basophil, Absolute 0.0 10 3/mcL Normal 0.0-0.3 [facility] MAIN Comment on above: Performed By: #### L AC #### [address] [address] Basophils/100 WBC (Bld) 0.2 % Normal 0.0-2.5 [facility] MAIN Comment on above: Performed By: #### L AC #### [address] [address] Eosinophil, Absolute 0.0 10 3/mcL Normal 0.0-0.7 [facility] Comment on above: Performed By: #### L AC #### [address] [address] Eosinophils/100 WBC (Bld) 0.0 % Normal 0.0-6.0 [facility] Comment on above: Performed By: #### L AC #### [address] [address] Lymphocyte, Absolute 0.8 10 3/mcL Low 0.9-4.3 [facility] Comment on above: Performed By: #### L AC #### [address] [address] Lymphocytes/100 WBC (Bld) 6.4 % Low 20.0-40.0 [facility] Comment on above: Performed By: #### L AC #### [address] [address] Monocyte, Absolute 0.5 10 3/mcL Normal 0.1-1.4 [facility] MAIN Comment on above: Performed By: #### L AC #### [address] [address] Monocytes/100 WBC (Bld) 4.3 % Normal 2.0-13.0 [facility] MA[facility] Comment on above: Performed By: #### L AC #### [address] [address] Neutrophils/100 WBC (Bld) 89.1 % High 50.0-75.0 [facility] Comment on above: Performed By: #### L AC #### [address] [address] Basophil, Absolute 0.0 10 3/mcL Normal 0.0-0.3 [facility] MA[facility] Comment on above: Performed By: #### L AC #### [address] [address] Basophils/100 WBC (Bld) 0.1 % Normal 0.0-2.5 [facility] MA[facility] Comment on above: Performed By: #### L AC #### [address] [address] Eosinophil, Absolute 0.0 10 3/mcL Normal 0.0-0.7 [facility] Comment on above: Performed By: #### L AC #### [address] [address] Eosinophils/100 WBC (Bld) 0.0 % Normal 0.0-6.0 [facility] Comment on above: Performed By: #### L AC #### [address] [address] Lymphocyte, Absolute 0.4 10 3/mcL Low 0.9-4.3 [facility] Comment on above: Performed By: #### L AC #### [address] [address] Lymphocytes/100 WBC (Bld) 1.9 % Low 20.0-40.0 [facility] MA[facility] Comment on above: Performed By: #### L AC #### [place] [id number] [address] [place] [address] Monocyte, Absolute 0.5 10 3/mcL Normal 0.1-1.4 [facility] MAIN Comment on above: Performed By: #### L AC #### [address] [address] Monocytes/100 WBC (Bld) 2.4 % Normal 2.0-13.0 [facility] MA[facility] Comment on above: Performed By: #### L AC #### [address] [address] Neutrophils/100 WBC (Bld) 95.6 % High 50.0-75.0 [facility] Comment on above: Performed By: #### L AC #### [address] [address] .GFRon 06-16-2025 Estimated Glomerular Filtration Rate 59 ml/min/1.73sqm [facility] MAIN Comment on above: Result [...] results. Performed By: #### L AC #### [address] [address] .NEUABSon 06-16-2025 Neutrophil, Absolute 10.8 10 3/mcL High 2.3-8.1 [facility] MAIN Comment on above: Performed By: #### L AC #### [address] [address] Neutrophil, Absolute 19.3 10 3/mcL High 2.3-8.1 [facility] MAIN Comment on above: Performed By: #### L AC #### [address] [address] APTTon 06-16-2025 aPTT Coag (Bld) [Time] 33.8 s Normal 25.0-35.0 [facility] Comment on above: Result Comment: For Heparin anticoagulation therapy, the recommended therapeutic range is: 54-77 seconds (APTT Correlation with Anti-Xa therapeutic range of 0.3-0.7 units/ml). PLEASE REFERENCE THE PHARMACY PROTOCOL FOR DOSING. Performed By: #### C BC, ADIFF, ANEU, APTT, CMP, HFP, GFR #### [address] [address] aPTT Coag (Bld) [Time] 29.1 s Normal 25.4 - 38.4 [facility] Comment on above: Performed By: #### 2 [address] ####[facility],[address] [place] [address] BGon 06-16-2025 Base excess Calc (Bld) [Moles/Vol] -1.1000 mmol/L Normal [facility] MAIN Comment on above: Performed By: #### D RUGS #### [address] [address] CO2 [Moles/Vol] 25.6 mmol/L Normal 22.0-30.0 [facility] Comment on above: Performed By: #### D RUGS #### [address] [address] HCO3 (Bld) [Moles/Vol] 24.3 mmol/L Normal 21.0-29.0 [facility] MAIN Comment on above: Performed By: #### D RUGS #### [address] [address] Oxygen (Bld) [Partial pressure] 97.9 mm[Hg] Normal 74.0-108.0 [facility] MAIN Comment on above: Performed By: #### D RUGS #### [place] [address] Oxygen saturation in Blood 97.1 % High 92.0-96.0 [facility] MAIN Comment on above: Performed By: #### D KAYLA #### [place] [address] pCO2 43.4 mmHg Normal 32.0-46.0 [facility] Comment on above: Performed By: #### D RUGS #### [place] [address] pH (Bld) 7.366 [pH] Low 7.380-7.460 [facility] MAIN Comment on above: Performed By: #### D KAYLA #### [place] [address] CBCon 06-16-2025 Erythrocyte distribution width (RBC) [Ratio] 13.9 % Normal 11.5-15.5 [facility] MAIN Comment on above: Performed By: #### L AC #### [place] [address] Hematocrit (Bld) [Volume fraction] 34.3 % Normal 34.0-46.0 [facility] MAIN Comment on above: Performed By: #### L AC #### [place] [address] Hgb 11.3 G/dL Low 12.0-16.0 [facility] MAIN Comment on above: Performed By: #### L AC #### [place] [address] MCH (RBC) [Entitic mass] 29.1 pg Normal 27.0-33.0 [facility] MAIN Comment on above: Performed By: #### L AC #### [place] [phone] MCHC 33.0 G/dL Normal 32.0-36.0 [facility] MAIN Comment on above: Performed By: #### L AC #### [place] [address] MCV (RBC) [Entitic vol] 88.4 fL Normal 80.0-99.0 [facility] MAIN Comment on above: Performed By: #### L AC #### [place] [phone] Platelet 263 10 3/mcL Normal 150-450 [facility] MAIN Comment on above: Performed By: #### L AC #### [place] [phone] Platelet mean volume (Bld) [Entitic vol] 7.4 fL Normal 6.6-10.5 [facility]IN Comment on above: Performed By: #### L AC #### [place] [address] RBC 3.88 10 6/mcL Low 4.10-5.30 [facility] Comment on above: Performed By: #### L AC #### [place] [phone] WBC 12.1 10 3/mcL High 4.5-10.8 [facility] Comment on above: Performed By: #### L AC #### [place] [address] Erythrocyte distribution width (RBC) [Ratio] 14.4 % Normal 11.5-15.5 [facility] Comment on above: Performed By: #### L AC #### [place] [address] Hematocrit (Bld) [Volume fraction] 38.4 % Normal 34.0-46.0 [facility] Comment on above: Performed By: #### L AC #### [place] [address] Hgb 12.4 G/dL Normal 12.0-16.0 [facility] Comment on above: Performed By: #### L AC #### [place] [phone] MCH (RBC) [Entitic mass] 28.7 pg Normal 27.0-33.0 [facility] Comment on above: Performed By: #### L AC #### [place] [address] MCHC 32.3 G/dL Normal 32.0-36.0 [facility] Comment on above: Performed By: #### L AC #### [place] [address] MCV (RBC) [Entitic vol] 88.8 fL Normal 80.0-99.0 [facility] MA[facility] Comment on above: Performed By: #### L AC #### [place] [address] Platelet 297 10 3/mcL Normal 150-450 [facility] Comment on above: Performed By: #### L AC #### [place] [address] Platelet mean volume (Bld) [Entitic vol] 7.5 fL Normal 6.6-10.5 [facility] Comment on above: Performed By: #### L AC #### [place] [address] RBC 4.32 10 6/mcL Normal 4.10-5.30 [facility] Comment on above: Performed By: #### L AC #### [place] [address] WBC 20.2 10 3/mcL High 4.5-10.8 [facility] Comment on above: Performed By: #### L AC #### [place] [address] CBC + DIFFon 06-16-2025 Baso # 0.04 x10EE3/UL Normal 0.00 - 0.10 [facility] Comment on above: Performed By: #### 2 [id number] ####[facility],[address] [place] [address] Basophils/100 WBC (Bld) 0.3 % Normal 0.0 - 2.0 [facility] Comment on above: Performed By: #### 2 [id number] ####[facility],[address] [place] [address] CBC + DIFF Normal [facility] Comment on above: Result Comment: CBC- COMPLETE BLOOD COUNT Performed By: #### 2 82594 ####[facility],[address] [place] [address] EO # 0.19 x10EE3/UL Normal 0.00 - 0.50 [facility] Comment on above: Performed By: #### 2 10347 ####[facility],[address] [place] [address] Eosinophils/100 WBC (Bld) 1.6 % Normal 0.0 - 7.0 [facility] Comment on above: Performed By: #### 2 62859 ####[facility],[address] [place] [address] Erythrocyte distribution width (RBC) [Ratio] 13.9 % Normal 12.0 - 15.6 [facility] Comment on above: Performed By: #### 2 [id number] ####[facility],[address] [place] [address] Hematocrit (Bld) [Volume fraction] 39.0 % Normal 34.0 - 46.0 [facility] Comment on above: Performed By: #### 2 47781 ####[facility],[address] [place] [address] Hemoglobin (Bld) [Mass/Vol] 13.5 g/dL Normal 12.0 - 16.0 [facility] Comment on above: Performed By: #### 2 [id number] ####[facility],[address] [place] [id number] Lymph # 4.60 [id number]/UL High 0.80 - 2.80 [facility] Comment on above: Performed By: #### 2 [id number] ####[facility],[address] [place] [id number] Lymphocytes/100 WBC (Bld) 38.1 % Normal 20.0 - 45.0 [facility] Comment on above: Performed By: #### 2 [id number] ####[facility],[address] [place], [place] [id number] MANUAL DIFF N/A Normal [facility] [facility] Comment on above: Performed By: #### 2 62207 ####[facility],[address] [place] [address] MCH (RBC) [Entitic mass] 31 pg Normal 27 - 33 [facility] Comment on above: Performed By: #### 2 64109 ####[facility],[address] [place] [address] MCHC 35 X10 3 Normal 32 - 36 [facility] Comment on above: Performed By: #### 2 26339 ####[facility],[address] [place] [address] MCV (RBC) [Entitic vol] 91 fL Normal 80 - 99 [facility] Comment on above: Performed By: #### 2 49080 ####[facility],[address] [place] [address] [place] # 0.64 x10EE3/UL Normal 0.20 - 1.00 [facility] Comment on above: Performed By: #### 2 34400 ####[facility],[address] [place] [address] MONOS % 5.3 % Normal 0.0 - 10.0 [facility] Comment on above: Performed By: #### 2 58894 ####[facility],[address] [place], [place] [id number] Morphology Dandy (Bld) [Interp] N/A Normal [facility] Comment on above: Performed By: #### 2 64487 ####[facility],[address] [place] [address] Neut # 6.61 x10EE3/UL Normal 1.50 - 7.10 [facility] Comment on above: Performed By: #### 2 02238 ####[facility],[address] [place] [address] Neutrophils/100 WBC (Bld) 54.7 % Normal 46.0 - 76.0 [facility] Comment on above: Performed By: #### 2 69781 ####[facility],[address] [place] [address]871 PLATELET 365 x10EE3/UL Normal 150 - 450 [facility] Comment on above: Performed By: #### 2 98722 ####[facility],[address] [place] [address]77 Platelet mean volume (Bld) [Entitic vol] 7.4 fL Normal 6.6 - 10.5 [facility] Comment on above: Result Comment: AUTO MATED DIFFERENTIAL Performed By: #### 2 80923 ####[facility],[address] [place] [address] 91272 RBC 4.31 x 10EE6/UL Normal 4.10 - 5.30 [facility] Comment on above: Performed By: #### 2 65197 ####[facility],[address] [place] [address] 17281 WBC 12.1 x 10EE3/UL High 4.5 - 10.8 [facility] Comment on above: Performed By: #### 2 75483 ####[facility],[address] [place] [address] 52568 CHEST 1 VIEWon 06-16-2025 CHEST [address] [facility] CHEST 1 VIEW (PICC/ET PLACEM ENTon 06-16-2025 CHEST 1 VIEW (PICC/ET PLACEMENT Normal [facility] CMPon 06-16-2025 Albumin Level 3.5 G/dL Normal 3.2-4.8 [facility] Comment on above: Performed By: #### L AC #### [facility] [address] [place] [address]248 Albumin/Globulin [Mass ratio] 1.0 {ratio} Normal 0.9-1.6 [facility] Comment on above: Performed By: #### L AC #### [facility] [address] [place] [address] ALP [Catalytic activity/Vol] 135 U/L High 38-126 [facility] Comment on above: Performed By: #### L AC #### [address] [address] ALT [Catalytic activity/Vol] 133 U/L High 10-49 [facility] Comment on above: Performed By: #### L AC #### [address] [address] AST [Catalytic activity/Vol] 203 U/L High 8-34 [facility] Comment on above: Performed By: #### L AC #### [address] [address] Bili Total 0.30 mg/dL Normal 0.20-1.20 [facility] Comment on above: Result Comment: Use of this assay is not recommended for patients undergoing treatment with eltrombopag due to the potential for falsely elevated results. Performed By: #### L AC #### [address] [address] BUN/Creatinine Ratio 24.5 ratio High 10.0-22.0 [facility] Comment on above: Performed By: #### L AC #### [address] [address] Calcium [Mass/Vol] 9.2 mg/dL Normal 8.7-10.4 [facility] Comment on above: Performed By: #### L AC #### [address] [address] Chloride [Moles/Vol] 100 mmol/L Normal 98-110 [facility] Comment on above: Performed By: #### L AC #### [address] [address] CO2 [Moles/Vol] 26 mmol/L Normal 22-32 [facility] Comment on above: Performed By: #### L AC #### [address] [address] Creatinine [Mass/Vol] 1.02 mg/dL Normal 0.50-1.20 [facility] Comment on above: Result Comment: Test ing performed on [employer] analyzer using enzymatic creatinine methodology. Performed By: #### L AC #### [address] [address] Electrolyte Balance 13.0 mEq/L Normal 4.0-15.0 [facility] Comment on above: Performed By: #### L AC #### [address] [address] Globulin 3.6 G/dL Normal 2.5-4.2 [facility] Comment on above: Performed By: #### L AC #### [address] [address] Glucose [Mass/Vol] 135 mg/dL High 82-115 [facility] Comment on above: Performed By: #### L AC #### [address] [address] Potassium [Moles/Vol] 3.2 mmol/L Low 3.5-5.0 [facility] Comment on above: Performed By: #### L AC #### [address] [address] Sodium [Moles/Vol] 139 mmol/L Normal 136-145 [facility] Comment on above: Performed By: #### L AC #### [address] [address] Total Protein 7.1 G/dL Normal 5.7-8.2 [facility] Comment on above: Performed By: #### L AC #### [address] [address] Urea nitrogen [Mass/Vol] 25.0 mg/dL High 8.0-22.0 [facility] Comment on above: Performed By: #### L AC #### [address] [address] CMP with eGFRon 06-16-2025 AGE 70 years Normal [facility] Comment on above: Performed By: #### 2 07172 ####[facility],[address] [place] [address] Albumin [Mass/Vol] 3.2 g/dL Low 3.4 - 5.0 [facility] Comment on above: Performed By: #### 2 98877 ####[facility],[address] [place] [address] Albumin/Globulin [Mass ratio] 0.7 {ratio} Low 0.9 - 1.6 [facility] Comment on above: Performed By: #### 2 45836 ####[facility],[address] [place] [address] ALK PHOS 136 U/L High 46 - 116 [facility] Comment on above: Performed By: #### 2 83297 ####[facility],[address] [place] [address]31 ALT [Catalytic activity/Vol] 104 U/L High 16 - 63 [facility] Comment on above: Performed By: #### 2 65518 ####[facility],[address] [place] [address] Anion gap [Moles/Vol] 17 mmol/L Normal 10 - 20 [facility] Comment on above: Performed By: #### 2 08144 ####[facility],[address] [place] [address] AST [Catalytic activity/Vol] 145 U/L High 13 - 39 [facility] Comment on above: Performed By: #### 2 26417 ####[facility],[address] [place] [address]71 B/C RATIO 17 ratio Normal 0 - 30 [facility] Comment on above: Performed By: #### 2 05699 ####[facility],[address] [place] [address]162 Bilirubin [Mass/Vol] 0.7 mg/dL Normal 0.2 - 1.0 [facility] Comment on above: Performed By: #### 2 47876 ####[facility],[address] [place] [address] Calcium [Mass/Vol] 9.0 mg/dL Normal 8.5 - 10.1 [facility] Comment on above: Performed By: #### 2 62644 ####[facility],[address] [place] [address]441 Chloride [Moles/Vol] 95 mmol/L Low 98 - 107 [facility] Comment on above: Performed By: #### 2 72904 ####[facility],[address] [place] [address] CMP with eGFR Normal [facility] Comment on above: Result Comment: COMP REHENSIVE METABOLIC PANEL Performed By: #### 2 98287 ####[facility],[address] [place] [address]44 CO2 [Moles/Vol] 28.5 mmol/L Normal 21.0 - 32.0 [facility] Comment on above: Performed By: #### 2 61596 ####[facility],[address] [place] [address] Creatinine [Mass/Vol] 1.55 mg/dL High 0.55 - 1.02 [facility] Comment on above: Performed By: #### 2 05140 ####[facility],[address] [place], [place] [id number] eGFR 33 ML/MINUTE Low 60 - 999 [facility] Comment on above: Performed By: #### 2 79761 ####[facility],[address] [place], [place] [phone] eGFR(AA) 40 ML/MINUTE Low 60 - 999 [facility] Comment on above: Result Comment: ACCO RDING TO THE NATIONAL KIDNEY DISEASE EDUCATION PROGRAM(NKDE), A NORMAL eGFRIS A VALUE GREATER THAN OR EQUAL TO 60 ML/MIN/1.73 SQ METERS.CHRONIC KIDNEY DISEASE: <60mL/MIN/1.73 SQ METERSKIDNEY FAILURE: <15mL/MIN/1.73 SQ METERSTHIS TEST SHOULD ONLY BE USED FOR PATIENTS 18 YEARS OF AGE AND OLDER. Performed By: #### 2 41443 ####[facility],[address] [place] [address] Globulin (S) [Mass/Vol] 4.3 g/dL High 1.5 - 3.8 [facility] Comment on above: Performed By: #### 2 88431 ####[facility],[address] [place] [address]254 Glucose [Mass/Vol] 266 mg/dL High 74 - 106 [facility] Comment on above: Performed By: #### 2 74771 ####[facility],[address] [place] [address] Potassium [Moles/Vol] 4.0 mmol/L Normal 3.5 - 5.1 [facility] Comment on above: Performed By: #### 2 66793 ####[facility],[address] [place] [address]84 Protein [Mass/Vol] 7.5 g/dL Normal 6.4 - 8.2 [facility] Comment on above: Performed By: #### 2 60466 ####[facility],[address] [place] [address]03 Sodium [Moles/Vol] 136 mmol/L Normal 136 - 145 [facility] Comment on above: Performed By: #### 2 49460 ####[facility],[address] [place] [address] 59953 Urea nitrogen [Mass/Vol] 27 mg/dL High 7 - 18 [facility] Comment on above: Performed By: #### 2 32669 ####[facility],[address] [place] [address]221 CULTURE BLOOD [MARIA TERESA]on Microscopic examination of blood, culture CULTURE BLOOD [MARIA TERESA] _BLOOD CULTURE_ GO TO CPSI REPORTS AND ATTACHMENTS FOR SCANNED REPORT 06/24/25.56.DNP.COMP LETE Normal [facility] Comment on above: Performed By: #### 2 30134 ####[facility],[address] [place] [address]702 Microscopic examination of blood, culture CULTURE BLOOD [MARIA TERESA] _BLOOD CULTURE_ GO TO CPSI REPORTS AND ATTACHMENTS FOR SCANNED REPORT 06/24/25.55.DNP.COMP LETE Normal [facility] Comment on above: Performed By: #### 2 70861 ####[facility],[address] [place] [address] CVFLURVon 06-16-2025 FLU A PCR Negative Normal Negative [facility] Comment on above: Result Comment: Note s 1990 Performed By: #### C VFLURV ####[place] [address] FLU B PCR Negative Normal Negative [facility] Comment on above: Result Comment: Note s 1990 Performed By: #### C VFLURV ####[place] [address] RSV PCR Negative Normal Negative [facility] Comment on above: Result Comment: Note s 1990 Performed By: #### C VFLURV ####[place] [address] SARS-CoV-2 (COVID-19) RNA ALEJANDRO+probe Ql (Unsp spec) Negative Normal Negative [facility] Comment on above: Result Comment: Note [...] FDA Approved. Performed By: #### C VFLURV ####[place] [address] D-DIMER, QUANTITATIVEon 05-24 D-DIMER QUANT 5358 ng/ml High 0 - 230 [facility] Comment on above: Performed By: #### 2 28703 ####[facility],[address] [place] [address]78 D-DIMER, QUANTITATIVE Normal [facility] Comment on above: Result Comment: SILVANO T D-DIMER Performed By: #### 2 98285 ####[facility],[address] [place] [address] DRUGSon 06-16-2025 Acetaminophen [Mass/Vol] ug/mL Low 10.0-20.0 [facility] Comment on above: Performed By: #### Amina RUGS #### [place] [address] Ethanol Level <10.0 Normal [facility] Comment on above: Performed By: #### Amina RUGS #### [place] [phone] Salicylate Lvl (ds) <3.0 Low 10.0-25.0 [facility] Comment on above: Performed By: #### Amina RUGS #### [place] [address] Serum Drugs screened: See Below Normal [facility] Comment on above: Result Comment: This drug screen is a presumptive screening only. No confirmation will be performed unless requested. Drugs included in the serum drug screen are: Threshold Ethanol 10.0 mg/dL Salicylate 2.0 mg/dl Acetaminophen 2.0 mcg/mL Testing has been performed FOR MEDICAL PURPOSES ONLY. Performed By: #### Amina RUGS #### [place] [address] DRUGUon 06-16-2025 Benzodiazepine (u) Positive Abnormal Negative [facility] Comment on above: Performed By: #### L AC #### [place] [phone] Cannabinoid (u) Positive Abnormal Negative [facility] Comment on above: Performed By: #### L AC #### [place] [address] U pH Drug Scrn 6.0 Normal 5.0-8.0 [facility] Comment on above: Performed By: #### L AC #### [place] [phone] Amphetamine (u) Negative Normal Negative [facility] Comment on above: Performed By: #### L AC #### [address] [address] Barbiturate (u) Negative Normal Negative [facility] Comment on above: Performed By: #### L AC #### [place] [address] Cocaine Ql (U) Negative Normal Negative [facility] Comment on above: Performed By: #### L AC #### [place] [phone] Fentanyl (u) Negative Normal Negative [facility] Comment on above: Result Comment: Test ing has been performed FOR MEDICAL PURPOSES ONLY. Performed By: #### L AC #### [place] [address] Methadone Ql (U) Negative Normal Negative [facility] Comment on above: Performed By: #### L AC #### [place] [phone] Opiate (u) Negative Normal Negative [facility] Comment on above: Performed By: #### L AC #### [place] [phone] Oxycodone (u) Negative Normal Negative [facility] Comment on above: Result Comment: Test ing has been performed FOR MEDICAL PURPOSES ONLY. Performed By: #### L AC #### [place] [phone] PCP (u) Negative Normal Negative [facility] Comment on above: Performed By: #### L AC #### [place] [phone] Propoxyphene (u) Negative Normal Negative [facility] Comment on above: Performed By: #### L AC #### [place] [phone] Urine Drugs screened: See Below Normal [facility] Comment on above: Result [...] PURPOSES ONLY. Performed By: #### L #### [place] [address] ED MED ADMINISTRATION DETAIL on 06-16-2025 ED MED ADMINISTRATION DETAIL Normal [facility] ED NURSES CLINICAL NOTEon ED NURSES CLINICAL NOTE Normal [facility] ED ORDER SHEET (CPOE ONLY)on 06-16-2025 ED ORDER SHEET (CPOE ONLY) Normal [facility] ED PHYSICIAN CLINICAL REPORT on 06-16-2025 ED PHYSICIAN CLINICAL REPORT Normal [facility] ED SUPER BILLon 06-16-2025 ED SUPER BILL Normal [facility] ED VISIT SUMMARYon ED VISIT SUMMARY Normal [facility] ED VITALS FLOW SHEETon 06-16 ED VITALS FLOW SHEET Normal [facility] LABORATORYOrdered By: SYSTEM SYSTEM on [...] Comment on above: Interpretive Data: T jt [employer] (CHEST, 1992, 102:312S-25S) [...] mg/dL Normal 2.4 - 5 .1 mg/dL [facility] LABORATORYOrdered By: Thompson Garcia on 06-16-2025 Acetaminophen [Mass/Vol] mcg/mL Low 10.0 - 20.0 mcg/mL ADM Ethanol [Mass/Vol] mg/dL Invalid Interpretation Code ADM Salicylates [Mass/Vol] mg/dL Low 10.0 - 25.0 mg/dL [facility] Serum Drugs screened: See Below 18 (06/16/25 [...] Lactic Acid Lvl 2.0 mmol/L Normal 0.5-2.2 [facility] Comment on above: Order Comment: Order ed secondary to Lactic Acid result greater than or equal to 2.0 Performed By: #### L AC #### [address] [address] Lactic Acid Lvl 2.1 mmol/L Normal 0.5-2.2 [facility] Comment on above: Performed By: #### C BC, ADIFF, ANEU, APTT, CMP, HFP, GFR #### [address] [address] Lactic Acid Lvl 1.5 mmol/L Normal 0.5-2.2 [facility] Comment on above: Performed By: #### L AC #### [address] [address] Lactic Acid Lvl 1.7 mmol/L Normal 0.5-2.2 [facility] Comment on above: Performed By: #### L AC #### [place] [phone] LACTATEon 06-16-2025 Lactate [Moles/Vol] 3.9 mmol/L High 0.4 - 2.0 [facility] Comment on above: Result Comment: LACT ATE 3 HR NOTIFIED TO: _DANIELITO_RN 06/16/25.0422.ALA. . . LACTATE 3 HR NOTIFIED BY: _AA 06/16/25.0422.ALA. . . Performed By: #### 2 45632 ####[facility],[address] [place] [address] 1977[address] MGon 06-16-2025 Magnesium [Mass/Vol] 2.0 mg/dL Normal 1.6-2.4 [facility] Comment on above: Performed By: #### L AC #### [place] [address] MYCOon 06-16-2025 Mycoplasma IgG Negative [facility] Comment on above: Result Comment: INTE RPRETATION OF MYCOPLASMA IgG BY EIA: Negative: No detectable M. pneumoniae IgG antibody. Positive: Mycoplasma pneumoniae IgG antibody Detected. Equivocal: Equivocal for IgG antibodies to Mycoplasma pneumoniae. Suggest repeat testing in 10-14 days. Performed By: #### L AC #### [place] [address] Mycoplasma IgM Negative [facility] Comment on above: Result Comment: INTE RPRETATION OF MYCOPLASMA IgM: Negative: IgM to M. pneumoniae Absent, or at levels below the assay limit of detection. Positive: IgM to M. pneumoniae Present. Invalid: Test results are invalid due to invalid internal control. Assay was performed in duplicate. Repeat testing is suggested if clinically indicated. Performed By: #### L AC #### [place] [address] NT-proBNPon 06-16-2025 Natriuretic peptide B (Bld) [Mass/Vol] 4094 pg/mL High 0 - 125 [facility] Comment on above: Performed By: #### 2 38106 ####[facility],[address] [place] [address] No Panel InformationOrdered By: Luis Chang on 06-16-2025 Culture Respiratory with Gram Stain Normal respiratory renu present at 48 hours Sensitivity testing not indicated [facility] Comment on above: Requests for Mycopla sma, Legionella, Fungi, Mycobacteria, Chlamydia, and Viruses require ordering of those individual tests. GS Rare Gram Positive Cocci [facility] Comment on above: Requests for Mycopla sma, Legionella, Fungi, Mycobacteria, Chlamydia, and Viruses require ordering of those individual tests. No Panel Informationon 06-16 Legionella Urine Ag Presumptive negative for L. pneumophila serogroup 1 antigen in urine, suggesting no recent or current infection. Legionnaire's disease cannot be ruled out since other serogroups and species may also cause disease. [facility] Streptococcus Pneumoniae Urine Antig Presumptive negative for pneumococcal pneumonia, suggesting no current or recent pneumococcal infection. Infection due to Strep pneumoniae cannot be ruled out since the antigen present in the sample may be below the detection limit of the test. [facility] Comment on above: This test has not be en evaluated on patients taking antibiotics for greater than 24 hours or on patients who have recently completed an antibiotic regimen. The accuracy of this test has not been proven in young children. Microscopic examination of blood, culture Blood Culture: No Growth at 5 days. [facility] PHOSon 06-16-2025 Phosphate [Mass/Vol] 4.2 mg/dL Normal 2.4-5.1 [facility] Comment on above: Performed By: #### L AC #### [place] [id number] [address] [place] [address] PROon 06-16-2025 INR Coag (PPP) [Relative time] 1.2 {INR} Normal [facility] Comment on above: Result Comment: [employer] (CHEST, 1992, 102:312S-25S) recommended therapeutic range for oral anticoagulant therapy is: LOW RISK: Prophylaxis of venous thrombosis INR: 2.0-3.0 Treatment of pulmonary embolism 2.0-3.0 Prevention of systemic embolism 2.0-3.0 HIGH RISK: Mechanical prosthetic valves 2.5-3.5 Performed By: #### C BC, ADIFF, ANEU, APTT, CMP, HFP, GFR #### [facility] [address] [place] [address] PT Coag (PPP) [Time] 14.4 s Normal 9.0-14.4 [facility] Comment on above: Result Comment: Effe ctive 05/06/08, Protime results may be affected by some antibiotics (i.e. Ciprofloxacin, Azithromycin, Bactrim) which may potentiate the action of oral anticoagulants, with further increases in Protime/INR. Performed By: #### C BC, ADIFF, ANEU, APTT, CMP, HFP, GFR #### [facility] [address] [place] [address] PROTHROMBIN TIME AND INRon 0 06-16-2025 INR Coag (PPP) [Relative time] 1.1 {INR} Normal 0.8 - 1.2 [facility] Comment on above: Result Comment: [...] MECHANICAL HEART VALVES Performed By: #### 2 54809 ####[facility],[address] [place], [place] [phone] PROTHROMBIN TIME AND INR Normal [facility] Comment on above: Result Comment: PROT HROMBIN TIME AND INR Performed By: #### 2 75700 ####[facility],[address] [place], [place] [phone] PT-COUMADIN 11.8 sec Normal 9.3 - 14.1 [facility] Comment on above: Performed By: #### 2 75558 ####[facility],[address] [place], [place] [phone] TROPHSon 06-16-2025 High Sensitivity Troponin I 1085 ng/L High 0-34 [facility] Comment on above: Result Comment: High Sensitive Troponin I Reference Ranges: Female: 0-34 ng/L Male: 0-54 ng/L Testing performed on [employer] IM analyzer using direct chemiluminescent technology. Performed By: #### L AC #### [place] [phone] High Sensitivity Troponin I 951 ng/L High [address] MAIN Comment on above: Result Comment: High Sensitive Troponin I Reference Ranges: Female: 0-34 ng/L Male: 0-54 ng/L Testing performed on [employer] IM analyzer using direct chemiluminescent technology. Performed By: #### C BC, ADIFF, ANEU, APTT, CMP, HFP, GFR #### [place] [phone] TROPONINon 06-16-2025 HS TROPONIN 282.4 pg/mL Critically high 0.0 - 51.4 [facility] Comment on above: Result Comment: { CA LLED TO DANIELITO RN BY AA [id number]{ READ BACK BY DANIELITO RN RA [id number] Performed By: #### 2 66135 ####[place] [address] HS TROPONIN 217.4 pg/mL Critically high 0.0 - 51.4 [facility] Comment on above: Result Comment: { CA LLED TO DANIELITO RN BY AA [id number]{ READ BACK BY DANIELITO RN RA [id number] Performed By: #### 2 21533 ####[facility],[address] [place] [address] URINALYSISon 06-16-2025 Amorphous NONE Normal [facility] Comment on above: Performed By: #### 2 43262 ####[place] [address] Bacteria NONE Normal [facility] Comment on above: Performed By: #### 2 77163 ####[facility],[address] [place] [address] Bilirubin Ql (U) Negative Normal NORMAL: NEGATIVE [facility] Comment on above: Performed By: #### 2 30866 ####[facility],[address] [place] [address] 18703 Casts NONE Normal [facility] Comment on above: Performed By: #### 2 48987 ####[facility],[address] [place] [address] 39344 Clarity (U) clear Normal NORMAL: CLEAR [facility] Comment on above: Performed By: #### 2 24950 ####[facility],[address] [place] [address] 80984 Color (U) ariane Normal NORMAL: YELLOW [facility] Comment on above: Performed By: #### 2 50793 ####[facility],[address] [place] [address] 68795 Crystals LM Nom (Urine sed) NONE Normal [facility] Comment on above: Performed By: #### 2 00763 ####[facility],[address] [place] [address] 81406 Epi Cells NONE Normal [facility] Comment on above: Performed By: #### 2 74348 ####[facility],[address] [place] [address] 68983 Glucose Ql (U) 50 Abnormal NORMAL: NORMAL [facility] Comment on above: Performed By: #### 2 36067 ####[facility],[address] [place] [address] 29452 Hemoglobin Ql (U) 150 Abnormal NORMAL: NEGATIVE [facility] Comment on above: Performed By: #### 2 38789 ####[facility],[address] [place] [address] 71253 Ketone Negative Normal NORMAL: NEGATIVE [facility] Comment on above: Performed By: #### 2 22196 ####[facility],[address] [place] [address] 78931 Leukocytes Negative Normal NORMAL: NEGATIVE [facility] Comment on above: Performed By: #### 2 95054 ####[facility],[address] [place] [address] Mucous NONE Normal [facility] Comment on above: Performed By: #### 2 13292 ####[facility],[address] [place] [address] Nitrite Ql (U) Negative Normal NORMAL: NEGATIVE [facility] Comment on above: Performed By: #### 2 25474 ####[facility],[address] [place] [address] pH (U) 6 [pH] Normal NORMAL: 5.0-8.0 [facility] Comment on above: Performed By: #### 2 75606 ####[facility],[address] [place] [address] Protein Ql (U) 500 Abnormal NORMAL: NEGATIVE [facility] Comment on above: Performed By: #### 2 28951 ####[facility],[address] [place] [address] Rbc 0-5 Normal 0-3/hpf [facility] Comment on above: Performed By: #### 2 60265 ####[facility],[address] [place] [address] Sp [place] 1.025 Normal NORMAL: 1.010-1.030 [facility] Comment on above: Performed By: #### 2 15248 ####[facility],[address] [place] [address] Specimen Type R Normal [facility] Comment on above: Performed By: #### 2 90495 ####[facility],[address] [place] [address] Urinalysis dipstick W Reflex Microscopic panel (U) SEE BELOW Normal [facility] Comment on above: Result Comment: MICR OSCOPIC Performed By: #### 2 78217 ####[facility],[address] [place] [address] Urobilinog 1 Abnormal NORMAL: NORMAL [facility] Comment on above: Performed By: #### 2 88630 ####[facility],[address] [facility],[place] [address] Wbc NONE Normal 0-5/hpf [facility] Comment on above: Performed By: #### 2 70719 ####[facility],[address] [place] [address],[place] [address] Yeast NONE Normal [facility] Comment on above: Performed By: #### 2 47869 ####[facility],[address] [place] [address],[facility] [address] VBGon 06-16-2025 vBE -3 mmol/L Low -2 - 3 [facility] Comment on above: Performed By: #### 2 58250 ####[facility],[address] [place] [address],[facility] [address] vHCO3 28 mmol/L Normal 23 - 28 [facility] Comment on above: Performed By: #### 2 27534 ####[facility],[address] [place] [address],[facility] [address] vpCO2 109 mmHg High 41 - 51 [facility] Comment on above: Performed By: #### 2 26762 ####[facility],[address] [place] [address] 86702 vpH 7.02 Low 7.31 - 7.41 [facility] Comment on above: Performed By: #### 2 26009 ####[facility],[address] [place] [address] [place] [address] vpO2 42 mmHg Normal [facility] Comment on above: Performed By: #### 2 11403 ####[facility],[address] [place] [address],[facility] [address] vsO2 51 % Normal [facility] Comment on above: Performed By: #### 2 52702 ####[facility],[address] [place] [address] 76995 vBE 1 mmol/L Normal -2 - 3 [facility] Comment on above: Performed By: #### 2 61088 ####[facility],[address] [place] [address] 85415 vHCO3 31 mmol/L High 23 - 28 [facility] Comment on above: Performed By: #### 2 57917 ####[facility],[address] [place] [address] 63575 vpCO2 101 mmHg High 41 - 51 [facility] Comment on above: Performed By: #### 2 53823 ####[facility],[address] [place] [address] 85759 vpH 7.08 Low 7.31 - 7.41 [facility] Comment on above: Performed By: #### 2 81371 ####[facility],[address] [place] [address] 66078 vpO2 33 mmHg Normal [facility] Comment on above: Performed By: #### 2 05583 ####[facility],[address] [place] [address] 67502 vsO2 39 % Normal [facility] Comment on above: Performed By: #### 2 78509 ####[facility],[address] [place] [address] 46582 XR CHEST 1 VIEWon 06-16-2025 XR CHEST [...] 10:44:49 AM Ordering Provider: VANDANA DOS SANTOS [facility] BMP with eGFRon 03-07-2025 AGE 70 years Normal [facility] Comment on above: Performed By: #### 2 64775 ####[facility],[address] [place] [address] 77957 Anion gap [Moles/Vol] 9 mmol/L Low 10 - 20 [facility] Comment on above: Performed By: #### 2 79021 ####[facility],[address] [place] [address] 59684 BMP with eGFR Normal [facility] Comment on above: Result Comment: BASI C METABOLIC PANEL Performed By: #### 2 12700 ####[facility],[address] [place] [address] 76367 Calcium [Mass/Vol] 8.7 mg/dL Normal 8.5 - 10.1 [facility] Comment on above: Performed By: #### 2 48221 ####[facility],[address] [place] [address] 48075 Chloride [Moles/Vol] 103 mmol/L Normal 98 - 107 [facility] Comment on above: Performed By: #### 2 85661 ####[facility],[address] [place] [address] 72335 CO2 [Moles/Vol] 31.6 mmol/L Normal 21.0 - 32.0 [facility] Comment on above: Performed By: #### 2 96574 ####[facility],[address] [place] [address] 12013 Creatinine [Mass/Vol] 1.16 mg/dL High 0.55 - 1.02 [facility] Comment on above: Performed By: #### 2 37341 ####[facility],[address] [place] [address] 54368 eGFR 46 ML/MINUTE Low 60 - 999 [facility] Comment on above: Performed By: #### 2 69376 ####[facility],[address] [place] [address] 71380 eGFR(AA) 56 ML/MINUTE Low 60 - 999 [facility] Comment on above: Result Comment: ACCO RDING TO THE NATIONAL KIDNEY DISEASE EDUCATION PROGRAM(NKDE), A NORMAL eGFRIS A VALUE GREATER THAN OR EQUAL TO 60 ML/MIN/1.73 SQ METERS.CHRONIC KIDNEY DISEASE: <60mL/MIN/1.73 SQ METERSKIDNEY FAILURE: <15mL/MIN/1.73 SQ METERSTHIS TEST SHOULD ONLY BE USED FOR PATIENTS 18 YEARS OF AGE AND OLDER. Performed By: #### 2 70434 ####[facility],[address] [place] [address] 98510 Glucose [Mass/Vol] 96 mg/dL Normal 74 - 106 [facility] Comment on above: Performed By: #### 2 93946 ####[facility],[address] [place] [address] 97434 Potassium [Moles/Vol] 3.4 mmol/L Low 3.5 - 5.1 [facility] Comment on above: Performed By: #### 2 42316 ####[facility],[address] [place] [address] 09538 Sodium [Moles/Vol] 140 mmol/L Normal 136 - 145 [facility] Comment on above: Performed By: #### 2 54475 ####[facility],[address] [place] [address] 21029 Urea nitrogen [Mass/Vol] 25 mg/dL High 7 - 18 [facility] Comment on above: Performed By: #### 2 15250 ####[facility],[address] [place] [address] 61518 CMP with eGFRon 11-13-2024 AGE 69 years Normal [facility] Comment on above: Performed By: #### 2 63094 ####[facility],[address] [place] [address] 50346 Albumin [Mass/Vol] 2.4 g/dL Low 3.4 - 5.0 [facility] Comment on above: Performed By: #### 2 05964 ####[facility],[address] [place] [address] 89390 Albumin/Globulin [Mass ratio] 0.8 {ratio} Low 0.9 - 1.6 [facility] Comment on above: Performed By: #### 2 48688 ####[facility],[address] [place] [address] 33540 ALK PHOS 57 U/L Normal 46 - 116 [facility] Comment on above: Performed By: #### 2 79866 ####[facility],[address] [place] [address] 15235 ALT [Catalytic activity/Vol] 55 U/L Normal 16 - 63 [facility] Comment on above: Performed By: #### 2 59036 ####[facility],[address] [place] [address] 44287 Anion gap [Moles/Vol] 9 mmol/L Low 10 - 20 [facility] Comment on above: Performed By: #### 2 61543 ####[facility],[address] [place] [address] 00407 AST [Catalytic activity/Vol] 37 U/L Normal 13 - 39 [facility] Comment on above: Performed By: #### 2 04601 ####[facility],[address] [place] [address] 33218 B/C RATIO 12 ratio Normal 0 - 30 [facility] Comment on above: Performed By: #### 2 38613 ####[facility],[address] [place] [address] 75682 Bilirubin [Mass/Vol] 0.3 mg/dL Normal 0.2 - 1.0 [facility] Comment on above: Performed By: #### 2 70003 ####[facility],[address] [place] [address] 04297 Calcium [Mass/Vol] 7.9 mg/dL Low 8.5 - 10.1 [facility] Comment on above: Performed By: #### 2 72483 ####[facility],[address] [place], [place] [address] Chloride [Moles/Vol] 106 mmol/L Normal 98 - 107 [facility] Comment on above: Performed By: #### 2 37189 ####[facility],[address] [place], [place] [address] CMP with eGFR Normal [facility] Comment on above: Result Comment: COMP REHENSIVE METABOLIC PANEL Performed By: #### 2 64073 ####[facility],[address] [place] [address] CO2 [Moles/Vol] 28.2 mmol/L Normal 21.0 - 32.0 [facility] Comment on above: Performed By: #### 2 52122 ####[facility],[address] [place], [place] [address] Creatinine [Mass/Vol] 0.91 mg/dL Normal 0.55 - 1.02 [facility] Comment on above: Performed By: #### 2 15166 ####[place] [address] GFR/1.73 sq M.predicted among non-blacks MDRD (S/P/Bld) [Vol rate/Area] mL/min/{1.73_m2} Normal 60 - 999 [facility] Comment on above: Performed By: #### 2 82696 ####[facility],[address] [place] [address] Result Comment: ACCO RDING TO THE NATIONAL KIDNEY DISEASE EDUCATION PROGRAM(NKDE), A NORMAL eGFRIS A VALUE GREATER THAN OR EQUAL TO 60 ML/MIN/1.73 SQ METERS.CHRONIC KIDNEY DISEASE: <60mL/MIN/1.73 SQ METERSKIDNEY FAILURE: <15mL/MIN/1.73 SQ METERSTHIS TEST SHOULD ONLY BE USED FOR PATIENTS 18 YEARS OF AGE AND OLDER. Globulin (S) [Mass/Vol] 3.1 g/dL Normal 1.5 - 3.8 [facility] Comment on above: Performed By: #### 2 56226 ####[address] [address] Glucose [Mass/Vol] 96 mg/dL Normal 74 - 106 [facility] Comment on above: Performed By: #### 2 65742 ####[address] [address] Potassium [Moles/Vol] 3.8 mmol/L Normal 3.5 - 5.1 [facility] Comment on above: Performed By: #### 2 72666 ####[address] [address] Protein [Mass/Vol] 5.5 g/dL Low 6.4 - 8.2 [facility] Comment on above: Performed By: #### 2 62572 ####[address] [address] Sodium [Moles/Vol] 139 mmol/L Normal 136 - 145 [facility] Comment on above: Performed By: #### 2 80727 ####[address] [address] Urea nitrogen [Mass/Vol] 11 mg/dL Normal 7 - 18 [facility] Comment on above: Performed By: #### 2 74659 ####[address] [address] LIPID PROFILEon 11-13-2024 Cholesterol [Mass/Vol] 131 mg/dL Normal 0 - 240 [facility] Comment on above: Performed By: #### 2 04583 ####[address],[place] [address] Cholesterol in HDL [Mass/Vol] 50 mg/dL Normal 40 - 60 [facility] Comment on above: Performed By: #### 2 16281 ####[facility],[address] [place] [address] 11850 Cholesterol in LDL [Mass/Vol] 61 mg/dL Normal 0 - 129 [facility] Comment on above: Performed By: #### 2 51827 ####[facility],[address] [place] [address] 27569 Cholesterol.total/Bebe sterol in HDL [Mass ratio] 2.6 {ratio} Normal 0.0 - 5.0 [facility] Comment on above: Performed By: #### 2 47078 ####[facility],[address] [place] [address] 76704 Lipid 1996 panel Normal [facility] Comment on above: Result Comment: LIPI D PROFILE Performed By: #### 2 53992 ####[facility],[address] [place] [address] 90194 Triglyceride [Mass/Vol] 98 mg/dL Normal 0 - 150 [facility] Comment on above: Performed By: #### 2 53342 ####[facility],[address] [place] [address] 42855 .Auto Diffon 11-09-2024 Basophil, Absolute 0.1 10 3/mcL Normal 0.0-0.3 [facility] Comment on above: Performed By: #### L AC #### [facility] [address] [place] [address] 07740 Basophils/100 WBC (Bld) 1.2 % Normal 0.0-2.5 [facility] Comment on above: Performed By: #### L AC #### [facility] [address] [place] [address] 48061 Eosinophil, Absolute 0.2 10 3/mcL Normal 0.0-0.7 [facility] Comment on above: Performed By: #### L AC #### [place] [id number] [place] [address] 55238 Eosinophils/100 WBC (Bld) 2.0 % Normal 0.0-6.0 [facility] Comment on above: Performed By: #### L AC #### [address] [address] Lymphocyte, Absolute 2.3 10 3/mcL Normal 0.9-4.3 [facility] Comment on above: Performed By: #### L AC #### [address] [address] Lymphocytes/100 WBC (Bld) 27.4 % Normal 20.0-40.0 [facility] Comment on above: Performed By: #### L AC #### [address] [address] Monocyte, Absolute 1.1 10 3/mcL Normal 0.1-1.4 [facility] Comment on above: Performed By: #### L AC #### [address] [address] Monocytes/100 WBC (Bld) 12.9 % Normal 2.0-13.0 [facility] Comment on above: Performed By: #### L AC #### [address] [address] Neutrophils/100 WBC (Bld) 56.5 % Normal 50.0-75.0 [facility] Comment on above: Performed By: #### L AC #### [address] [address] .GFRon 11-09-2024 GFR >60 Normal [facility] Comment on above: Result [...] meters Performed By: #### L AC #### [address] [address] GFR Non- >60 Normal [facility] Comment on above: Result [...] meters Performed By: #### L AC #### [place] [address] .NEUABSon 11-09-2024 Neutrophil, Absolute 4.7 10 3/mcL Normal 2.3-8.1 [facility] Comment on above: Performed By: #### L AC #### [address] [address] BMPon 11-09-2024 BUN/Creatinine Ratio 29.6 ratio High 10.0-22.0 [facility] Comment on above: Performed By: #### L AC #### [address] [address] Calcium [Mass/Vol] 8.5 mg/dL Low 8.7-10.4 [facility] Comment on above: Performed By: #### L AC #### [address] [address] Chloride [Moles/Vol] 104 mmol/L Normal 98-110 [facility] Comment on above: Performed By: #### L AC #### [address] [address] CO2 [Moles/Vol] 26 mmol/L Normal 22-32 [facility] Comment on above: Performed By: #### L AC #### [place] [phone] Creatinine [Mass/Vol] 0.81 mg/dL Normal 0.50-1.20 [facility] Comment on above: Result Comment: Test ing performed on [employer] analyzer using enzymatic creatinine methodology. Performed By: #### L AC #### [place] [id number] Electrolyte Balance 7.0 mEq/L Normal 4.0-15.0 [facility] Comment on above: Performed By: #### L AC #### [place] [phone] Glucose [Mass/Vol] 106 mg/dL Normal 82-115 [facility] Comment on above: Performed By: #### L AC #### [place] [phone] Potassium [Moles/Vol] 3.4 mmol/L Low 3.5-5.0 [facility] Comment on above: Performed By: #### L AC #### [place] [phone] Sodium [Moles/Vol] 137 mmol/L Normal 136-145 [facility] Comment on above: Performed By: #### L AC #### [place] [phone] Urea nitrogen [Mass/Vol] 24.0 mg/dL High 8.0-22.0 [facility] Comment on above: Performed By: #### L AC #### [address] [address] CBCon 11-09-2024 Erythrocyte distribution width (RBC) [Ratio] 14.5 % Normal 11.5-15.5 [facility] Comment on above: Performed By: #### L AC #### [place] [phone] Hematocrit (Bld) [Volume fraction] 35.6 % Normal 34.0-46.0 [facility] Comment on above: Performed By: #### L AC #### [address] [address] Hgb 11.9 G/dL Low 12.0-16.0 [facility] Comment on above: Performed By: #### L AC #### [place] [address] MCH (RBC) [Entitic mass] 30.2 pg Normal 27.0-33.0 [facility] Comment on above: Performed By: #### L AC #### [place] [address] MCHC 33.5 G/dL Normal 32.0-36.0 [facility] Comment on above: Performed By: #### L AC #### [place] [address] MCV (RBC) [Entitic vol] 90.2 fL Normal 80.0-99.0 [facility] Comment on above: Performed By: #### L AC #### [place] [address] Platelet 402 10 3/mcL Normal 150-450 [facility] Comment on above: Performed By: #### L AC #### [place] [address] Platelet mean volume (Bld) [Entitic vol] 7.4 fL Normal 6.6-10.5 [facility] Comment on above: Performed By: #### L AC #### [place] [address] RBC 3.95 10 6/mcL Low 4.10-5.30 [facility] Comment on above: Performed By: #### L AC #### [place] [address] WBC 8.4 10 3/mcL Normal 4.5-10.8 [facility] Comment on above: Performed By: #### L AC #### [place] [address] LABORATORYOrdered By: SYSTEM SYSTEM on 11-09-2024 Basophils [...] above: Interpretive Data: T esting performed on [employer] analyzer using enzymatic creatinine methodology. Electrolyte Balance [...] (S/P/Bld) [Vol rate/Area] ml/min/1.73sqm Invalid Interpretation Code [employer] S Comment on above: Interpretive Data: [...] (S/P/Bld) [Vol rate/Area] ml/min/1.73sqm Invalid Interpretation Code [employer] S Comment on above: Interpretive Data: [...] 11-09-2024 Magnesium [Mass/Vol] 2.1 mg/dL Normal 1.6-2.4 [facility] Comment on above: Performed By: #### L AC #### [address] [address] .Auto Diffon 11-08-2024 Basophil, Absolute 0.1 10 3/mcL Normal 0.0-0.3 [facility] Comment on above: Performed By: #### C BC, ADIFF, ANEU, BMP, MG, GFR ####[address] [address] Basophils/100 WBC (Bld) 1.4 % Normal 0.0-2.5 [facility] Comment on above: Performed By: #### C BC, ADIFF, ANEU, BMP, MG, GFR ####[facility] [place] [address] Eosinophil, Absolute 0.2 10 3/mcL Normal 0.0-0.7 [facility] Comment on above: Performed By: #### C BC, ADIFF, ANEU, BMP, MG, GFR ####[address] [address] Eosinophils/100 WBC (Bld) 2.7 % Normal 0.0-6.0 [facility] Comment on above: Performed By: #### C BC, ADIFF, ANEU, BMP, MG, GFR ####[address] [address] Lymphocyte, Absolute 1.9 10 3/mcL Normal 0.9-4.3 [facility] Comment on above: Performed By: #### C BC, ADIFF, ANEU, BMP, MG, GFR ####[address] [address] Lymphocytes/100 WBC (Bld) 26.7 % Normal 20.0-40.0 [facility] MAIN Comment on above: Performed By: #### C BC, ADIFF, ANEU, BMP, MG, GFR ####[address] [address] Monocyte, Absolute 0.9 10 3/mcL Normal 0.1-1.4 [facility] MAIN Comment on above: Performed By: #### C BC, ADIFF, ANEU, BMP, MG, GFR ####[address] [address] Monocytes/100 WBC (Bld) 13.0 % Normal 2.0-13.0 [facility] MAIN Comment on above: Performed By: #### C BC, ADIFF, ANEU, BMP, MG, GFR ####[address] [address] Neutrophils/100 WBC (Bld) 56.2 % Normal 50.0-75.0 [facility] MAIN Comment on above: Performed By: #### C BC, ADIFF, ANEU, BMP, MG, GFR ####[address] [address] .GFRon 11-08-2024 GFR >60 Normal [facility] MAIN Comment on above: Result [...] C BC, ADIFF, ANEU, BMP, MG, GFR ####[address] [address] GFR Non- >60 Normal [facility] MAIN Comment on above: Result [...] C BC, ADIFF, ANEU, BMP, MG, GFR ####[address] [address] .NEUABSon 11-08-2024 Neutrophil, Absolute 4.1 10 3/mcL Normal 2.3-8.1 [facility] MA[facility] Comment on above: Performed By: #### C BC, ADIFF, ANEU, BMP, MG, GFR ####[address] [address] BMPon 11-08-2024 BUN/Creatinine Ratio 28.2 ratio High 10.0-22.0 [facility] MAIN Comment on above: Performed By: #### C BC, ADIFF, ANEU, BMP, MG, GFR ####[address] [address] Calcium [Mass/Vol] 8.8 mg/dL Normal 8.7-10.4 [facility] MAIN Comment on above: Performed By: #### C BC, ADIFF, ANEU, BMP, MG, GFR ####[address] [address] Chloride [Moles/Vol] 105 mmol/L Normal 98-110 [facility] MAIN Comment on above: Performed By: #### C BC, ADIFF, ANEU, BMP, MG, GFR ####[address] [address] CO2 [Moles/Vol] 27 mmol/L Normal 22-32 [facility] MAIN Comment on above: Performed By: #### C BC, ADIFF, ANEU, BMP, MG, GFR ####[address] [address] Creatinine [Mass/Vol] 0.71 mg/dL Normal 0.50-1.20 [facility] MAIN Comment on above: Result Comment: Test ing performed on [employer] analyzer using enzymatic creatinine methodology. Performed By: #### C BC, ADIFF, ANEU, BMP, MG, GFR ####[address] [address] Electrolyte Balance 7.0 mEq/L Normal 4.0-15.0 [facility] MAIN Comment on above: Performed By: #### C BC, ADIFF, ANEU, BMP, MG, GFR ####[address] [address] Glucose [Mass/Vol] 100 mg/dL Normal 82-115 [facility] MAIN Comment on above: Performed By: #### C BC, ADIFF, ANEU, BMP, MG, GFR ####[address] [address] Potassium [Moles/Vol] 3.5 mmol/L Normal 3.5-5.0 [facility] MAIN Comment on above: Performed By: #### C BC, ADIFF, ANEU, BMP, MG, GFR ####[address] [address] Sodium [Moles/Vol] 139 mmol/L Normal 136-145 [facility] MAIN Comment on above: Performed By: #### C BC, ADIFF, ANEU, BMP, MG, GFR ####[address] [address] Urea nitrogen [Mass/Vol] 20.0 mg/dL Normal 8.0-22.0 [facility] MAIN Comment on above: Performed By: #### C BC, ADIFF, ANEU, BMP, MG, GFR ####[place] [address] CBCon 11-08-2024 Erythrocyte distribution width (RBC) [Ratio] 14.1 % Normal 11.5-15.5 [facility] MAIN Comment on above: Performed By: #### C BC, ADIFF, ANEU, BMP, MG, GFR ####[place] [address] Hematocrit (Bld) [Volume fraction] 36.1 % Normal 34.0-46.0 [facility] MAIN Comment on above: Performed By: #### C BC, ADIFF, ANEU, BMP, MG, GFR ####[place] [address] Hgb 12.1 G/dL Normal 12.0-16.0 [facility] MAIN Comment on above: Performed By: #### C BC, ADIFF, ANEU, BMP, MG, GFR ####[place] [address] MCH (RBC) [Entitic mass] 30.0 pg Normal 27.0-33.0 [facility] MAIN Comment on above: Performed By: #### C BC, ADIFF, ANEU, BMP, MG, GFR ####[place] [address] MCHC 33.5 G/dL Normal 32.0-36.0 [facility] MAIN Comment on above: Performed By: #### C BC, ADIFF, ANEU, BMP, MG, GFR ####[place] [address] MCV (RBC) [Entitic vol] 89.7 fL Normal 80.0-99.0 [facility] MAIN Comment on above: Performed By: #### C BC, ADIFF, ANEU, BMP, MG, GFR ####[place] [address] Platelet 402 10 3/mcL Normal 150-450 [facility] MAIN Comment on above: Performed By: #### C BC, ADIFF, ANEU, BMP, MG, GFR ####[place] [id number] [place] [address] Platelet mean volume (Bld) [Entitic vol] 7.5 fL Normal 6.6-10.5 [facility] MAIN Comment on above: Performed By: #### C BC, ADIFF, ANEU, BMP, MG, GFR ####[place] [id number] [place] [address] RBC 4.02 10 6/mcL Low 4.10-5.30 [facility] MAIN Comment on above: Performed By: #### C BC, ADIFF, ANEU, BMP, MG, GFR ####[place] [id number] [place] [address] WBC 7.3 10 3/mcL Normal 4.5-10.8 [facility] MAIN Comment on above: Performed By: #### C BC, ADIFF, ANEU, BMP, MG, GFR ####[place] [id number] [place] [address] LABORATORYOrdered By: Tricia Kinney on 11-08-2024 Glucose [Mass/Vol] 107 mg/dL Normal 82 - 115 mg/dL [facility] LABORATORYOrdered By: SYSTEM SYSTEM on 11-08-2024 [...] above: Interpretive Data: T esting performed on [employer] analyzer using enzymatic creatinine methodology. Electrolyte Balance [...] (S/P/Bld) [Vol rate/Area] ml/min/1.73sqm Invalid Interpretation Code [facility] Comment on above: Interpretive Data: GFR Population [...] (S/P/Bld) [Vol rate/Area] ml/min/1.73sqm Invalid Interpretation Code [facility] Comment on above: Interpretive Data: GFR Population [...] 11-08-2024 Magnesium [Mass/Vol] 2.0 mg/dL Normal 1.6-2.4 [facility] MAIN Comment on above: Performed By: #### C BC, ADIFF, ANEU, BMP, MG, GFR ####[address] [address] .Auto Diffon 11-07-2024 Basophil, Absolute 0.1 10 3/mcL Normal 0.0-0.3 [facility] MAIN Comment on above: Performed By: #### L AC #### [address] [address] Basophils/100 WBC (Bld) 1.0 % Normal 0.0-2.5 [facility] MAIN Comment on above: Performed By: #### L AC #### [address] [address] Eosinophil, Absolute 0.1 10 3/mcL Normal 0.0-0.7 [facility] MAIN Comment on above: Performed By: #### L AC #### [address] [address] Eosinophils/100 WBC (Bld) 0.9 % Normal 0.0-6.0 [facility] MAIN Comment on above: Performed By: #### L AC #### [address] [address] Lymphocyte, Absolute 1.3 10 3/mcL Normal 0.9-4.3 [facility] MAIN Comment on above: Performed By: #### L AC #### [address] [address] Lymphocytes/100 WBC (Bld) 14.5 % Low 20.0-40.0 [facility] MAIN Comment on above: Performed By: #### L AC #### [address] [address] Monocyte, Absolute 1.0 10 3/mcL Normal 0.1-1.4 [facility] MAIN Comment on above: Performed By: #### L AC #### [address] [address] Monocytes/100 WBC (Bld) 10.3 % Normal 2.0-13.0 [facility] MAIN Comment on above: Performed By: #### L AC #### [address] [address] Neutrophils/100 WBC (Bld) 73.3 % Normal 50.0-75.0 [facility] MAIN Comment on above: Performed By: #### L AC #### [address] [address] .GFRon 11-07-2024 GFR Non- >60 [facility] MAIN Comment on above: Result [...] meters Performed By: #### L AC #### [address] [address] GFR >60 [facility] MAIN Comment on above: Result [...] meters Performed By: #### L AC #### [address] [address] .NEUABSon 11-07-2024 Neutrophil, Absolute 6.8 10 3/mcL Normal 2.3-8.1 [facility] MAIN Comment on above: Performed By: #### L AC #### [address] [address] [facility] 11-07-2024 BUN/Creatinine Ratio 38.2 ratio High 10.0-22.0 [facility] MAIN Comment on above: Performed By: #### L AC #### [address] [address] Calcium [Mass/Vol] 9.0 mg/dL Normal 8.7-10.4 [facility] MAIN Comment on above: Performed By: #### L AC #### [address] [address] Chloride [Moles/Vol] 102 mmol/L Normal 98-110 [facility] MAIN Comment on above: Performed By: #### L AC #### [address] [address] CO2 [Moles/Vol] 27 mmol/L Normal 22-32 [facility] MAIN Comment on above: Performed By: #### L AC #### [address] [address] Creatinine [Mass/Vol] 0.68 mg/dL Normal 0.50-1.20 [facility] MAIN Comment on above: Result Comment: Test ing performed on [employer] analyzer using enzymatic creatinine methodology. Performed By: #### L AC #### [address] [address] Electrolyte Balance 9.0 mEq/L Normal 4.0-15.0 [facility] MAIN Comment on above: Performed By: #### L AC #### [address] [address] Glucose [Mass/Vol] 108 mg/dL Normal 82-115 [facility] MAIN Comment on above: Performed By: #### L AC #### [address] [address] Potassium [Moles/Vol] 3.6 mmol/L Normal 3.5-5.0 [facility] MAIN Comment on above: Performed By: #### L AC #### [place] [address] Sodium [Moles/Vol] 138 mmol/L Normal 136-145 [facility] MAIN Comment on above: Performed By: #### L AC #### [place] [phone] Urea nitrogen [Mass/Vol] 26.0 mg/dL High 8.0-22.0 [facility] MAIN Comment on above: Performed By: #### L AC #### [place] [address] CBCon 11-07-2024 Erythrocyte distribution width (RBC) [Ratio] 14.2 % Normal 11.5-15.5 [facility] MAIN Comment on above: Performed By: #### L AC #### [place] [phone] Hematocrit (Bld) [Volume fraction] 33.8 % Low 34.0-46.0 [facility] MAIN Comment on above: Performed By: #### L AC #### [place] [address] Hgb 11.2 G/dL Low 12.0-16.0 [facility] MAIN Comment on above: Performed By: #### L AC #### [place] [phone] MCH (RBC) [Entitic mass] 29.6 pg Normal 27.0-33.0 [facility] MAIN Comment on above: Performed By: #### L AC #### [place] [address] MCHC 33.0 G/dL Normal 32.0-36.0 [facility] MAIN Comment on above: Performed By: #### L AC #### [place] [phone] MCV (RBC) [Entitic vol] 89.7 fL Normal 80.0-99.0 [facility] MAIN Comment on above: Performed By: #### L AC #### [place] [phone] Platelet 391 10 3/mcL Normal 150-450 [facility] MAIN Comment on above: Performed By: #### L AC #### [facility] [address] [place] [address] Platelet mean volume (Bld) [Entitic vol] 7.5 fL Normal 6.6-10.5 [facility] MAIN Comment on above: Performed By: #### L AC #### [facility] [address] [place] [address] RBC 3.77 10 6/mcL Low 4.10-5.30 [facility] MAIN Comment on above: Performed By: #### L AC #### [facility] [address] [place] [address] WBC 9.3 10 3/mcL Normal 4.5-10.8 [facility] MAIN Comment on above: Performed By: #### L AC #### [place] [address] ED MED ADMINISTRATION DETAIL on 11-07-2024 ED MED ADMINISTRATION DETAIL Normal [facility] ED NURSES CLINICAL NOTEon ED NURSES CLINICAL NOTE Normal [facility] ED ORDER SHEET (CPOE ONLY)on 11-07-2024 ED ORDER SHEET (CPOE ONLY) Normal [facility] ED PHYSICIAN CLINICAL REPORT on 11-07-2024 ED PHYSICIAN CLINICAL REPORT Normal [facility] ED PHYSICIAN DISCHARGE REPOR Ton 11-07-2024 ED PHYSICIAN DISCHARGE REPORT Normal [facility] ED SUPER BILLon 11-07-2024 ED SUPER BILL Normal [facility] ED VISIT SUMMARYon ED VISIT SUMMARY Normal [facility] ED VITALS FLOW SHEETon 11-07 ED VITALS FLOW SHEET Normal [facility] LABORATORYOrdered By: Ariane Salmon on 11-07-2024 Blood Glucose Testing Reason Routine (11/07/24 3:30 AM) [facility] Glucose [Mass/Vol] 116 mg/dL High 82 - 115 mg/dL [facility] LABORATORYOrdered By: SYSTEM SYSTEM on 11-07-2024 [...] above: Interpretive Data: T esting performed on [employer] analyzer using enzymatic creatinine methodology. Electrolyte Balance [...] 11-07-2024 Magnesium [Mass/Vol] 2.0 mg/dL Normal 1.6-2.4 [facility] MAIN Comment on above: Performed By: #### L AC #### [place] [address] XR CHEST 1 VIEWon 11-07-2024 XR CHEST [...] 11/07/2024 6:54:29 AM Ordering Provider: EMILIO REYES [facility] .Auto Diffon 11-06-2024 Basophil, Absolute 0.1 10 3/mcL Normal 0.0-0.3 [facility] MAIN Comment on above: Performed By: #### L AC #### [address] [address] Basophils/100 WBC (Bld) 1.0 % Normal 0.0-2.5 [facility] MAIN Comment on above: Performed By: #### L AC #### [address] [address] Eosinophil, Absolute 0.1 10 3/mcL Normal 0.0-0.7 [facility] MAIN Comment on above: Performed By: #### L AC #### [address] [address] Eosinophils/100 WBC (Bld) 0.8 % Normal 0.0-6.0 [facility] MAIN Comment on above: Performed By: #### L AC #### [address] [address] Lymphocyte, Absolute 1.9 10 3/mcL Normal 0.9-4.3 [facility] MAIN Comment on above: Performed By: #### L AC #### [address] [address] Lymphocytes/100 WBC (Bld) 20.1 % Normal 20.0-40.0 [facility] MAIN Comment on above: Performed By: #### L AC #### [address] [address] Monocyte, Absolute 0.9 10 3/mcL Normal 0.1-1.4 [facility] MAIN Comment on above: Performed By: #### L AC #### [address] [address] Monocytes/100 WBC (Bld) 9.5 % Normal 2.0-13.0 [facility] MAIN Comment on above: Performed By: #### L AC #### [address] [address] Neutrophils/100 WBC (Bld) 68.6 % Normal 50.0-75.0 [facility] MAIN Comment on above: Performed By: #### L AC #### [address] [address] .GFRon 11-06-2024 GFR >60 [facility] MAIN Comment on above: Result [...] meters Performed By: #### L AC #### [place] [address] GFR Non- 60 ml/min/1.73sqm [facility] MAIN Comment on above: Result [...] meters Performed By: #### L AC #### [address] [address] GFR >60 [facility] MAIN Comment on above: Result [...] meters Performed By: #### L AC #### [address] [address] GFR Non- >60 Normal [facility] MAIN Comment on above: Result [...] meters Performed By: #### L AC #### [address] [address] .NEUABSon 11-06-2024 Neutrophil, Absolute 6.4 10 3/mcL Normal 2.3-8.1 [facility] MAIN Comment on above: Performed By: #### L AC #### [address] [address] BGon 11-06-2024 Base excess Calc (Bld) [Moles/Vol] 3.6 mmol/L Normal [facility] MAIN Comment on above: Performed By: #### C BC, ADIFF, ANEU, APTT, CMP, HFP, GFR #### [address] [address] CO2 [Moles/Vol] 27.9 mmol/L Normal 22.0-30.0 [facility] MAIN Comment on above: Performed By: #### C BC, ADIFF, ANEU, APTT, CMP, HFP, GFR #### [address] [address] HCO3 (Bld) [Moles/Vol] 26.8 mmol/L Normal 21.0-29.0 [facility] MAIN Comment on above: Performed By: #### C BC, ADIFF, ANEU, APTT, CMP, HFP, GFR #### [place] [phone] Oxygen (Bld) [Partial pressure] 97.0 mm[Hg] Normal 74.0-108.0 [facility] MAIN Comment on above: Performed By: #### C BC, ADIFF, ANEU, APTT, CMP, HFP, GFR #### [place] [address] Oxygen saturation in Blood 97.4 % High 92.0-96.0 [facility] MAIN Comment on above: Performed By: #### C BC, ADIFF, ANEU, APTT, CMP, HFP, GFR #### [place] [phone] pCO2 35.4 mmHg Normal 32.0-46.0 [facility] MAIN Comment on above: Performed By: #### C BC, ADIFF, ANEU, APTT, CMP, HFP, GFR #### [place] [phone] pH (Bld) 7.497 [pH] High 7.380-7.460 [facility] MAIN Comment on above: Performed By: #### C BC, ADIFF, ANEU, APTT, CMP, HFP, GFR #### [address] [address] BMPon 11-06-2024 BUN/Creatinine Ratio 31.2 ratio High 10.0-22.0 [facility] MAIN Comment on above: Performed By: #### L AC #### [place] [phone] Calcium [Mass/Vol] 8.5 mg/dL Low 8.7-10.4 [facility] MAIN Comment on above: Performed By: #### L AC #### [place] [phone] Chloride [Moles/Vol] 103 mmol/L Normal 98-110 [facility] MAIN Comment on above: Performed By: #### L AC #### [address] [address] CO2 [Moles/Vol] 32 mmol/L Normal 22-32 [facility] MAIN Comment on above: Performed By: #### L AC #### [address] [address] Creatinine [Mass/Vol] 0.93 mg/dL Normal 0.50-1.20 [facility] MAIN Comment on above: Result Comment: Test ing performed on [employer] analyzer using enzymatic creatinine methodology. Performed By: #### L AC #### [address] [address] Electrolyte Balance 4.0 mEq/L Normal 4.0-15.0 [facility] MAIN Comment on above: Performed By: #### L AC #### [address] [address] Glucose [Mass/Vol] 89 mg/dL Normal 82-115 [facility] MAIN Comment on above: Performed By: #### L AC #### [address] [address] Potassium [Moles/Vol] 3.0 mmol/L Low 3.5-5.0 [facility] MAIN Comment on above: Performed By: #### L AC #### [address] [address] Sodium [Moles/Vol] 139 mmol/L Normal 136-145 [facility] MAIN Comment on above: Performed By: #### L AC #### [address] [address] Urea nitrogen [Mass/Vol] 29.0 mg/dL High 8.0-22.0 [facility] MAIN Comment on above: Performed By: #### L AC #### [address] [address] BUN/Creatinine Ratio 35.3 ratio High 10.0-22.0 [facility] MAIN Comment on above: Performed By: #### L AC #### [address] [address] Calcium [Mass/Vol] 8.5 mg/dL Low 8.7-10.4 [facility] MAIN Comment on above: Performed By: #### L AC #### [address] [address] Chloride [Moles/Vol] 101 mmol/L Normal 98-110 [facility] MAIN Comment on above: Performed By: #### L AC #### [address] [address] CO2 [Moles/Vol] 32 mmol/L Normal 22-32 [facility] MAIN Comment on above: Performed By: #### L AC #### [address] [address] Creatinine [Mass/Vol] 0.85 mg/dL Normal 0.50-1.20 [facility] MAIN Comment on above: Result Comment: Test ing performed on [employer] analyzer using enzymatic creatinine methodology. Performed By: #### L AC #### [address] [address] Electrolyte Balance 7.0 mEq/L Normal 4.0-15.0 [facility] MAIN Comment on above: Performed By: #### L AC #### [address] [address] Glucose [Mass/Vol] 88 mg/dL Normal 82-115 [facility] MAIN Comment on above: Performed By: #### L AC #### [address] [address] Potassium [Moles/Vol] 3.0 mmol/L Low 3.5-5.0 [facility] MAIN Comment on above: Performed By: #### L AC #### [address] [address] Sodium [Moles/Vol] 140 mmol/L Normal 136-145 [facility] MAIN Comment on above: Performed By: #### L AC #### [address] [address] Urea nitrogen [Mass/Vol] 30.0 mg/dL High 8.0-22.0 [facility] MAIN Comment on above: Performed By: #### L AC #### [address] [address] CBCon 11-06-2024 Erythrocyte distribution width (RBC) [Ratio] 14.6 % Normal 11.5-15.5 [facility] MAIN Comment on above: Performed By: #### L AC #### [place] [address] Hematocrit (Bld) [Volume fraction] 30.7 % Low 34.0-46.0 [facility] MAIN Comment on above: Performed By: #### L AC #### [place] [address] Hgb 10.6 G/dL Low 12.0-16.0 [facility] MAIN Comment on above: Performed By: #### L AC #### [place] [address] MCH (RBC) [Entitic mass] 30.9 pg Normal 27.0-33.0 [facility] MAIN Comment on above: Performed By: #### L AC #### [place] [address] MCHC 34.4 G/dL Normal 32.0-36.0 [facility] MAIN Comment on above: Performed By: #### L AC #### [place] [address] MCV (RBC) [Entitic vol] 90.0 fL Normal 80.0-99.0 [facility] MAIN Comment on above: Performed By: #### L AC #### [place] [address] Platelet 360 10 3/mcL Normal 150-450 [facility] MAIN Comment on above: Performed By: #### L AC #### [place] [address] Platelet mean volume (Bld) [Entitic vol] 7.4 fL Normal 6.6-10.5 [facility] MAIN Comment on above: Performed By: #### L AC #### [place] [address] RBC 3.41 10 6/mcL Low 4.10-5.30 [facility] MAIN Comment on above: Performed By: #### L AC #### [address] [address] WBC 9.4 10 3/mcL Normal 4.5-10.8 [facility] MAIN Comment on above: Performed By: #### L AC #### [address] [address] LABORATORYOrdered By: Pamella Tao on 11-06-2024 Blood Glucose Testing Reason Routine (11/06/24 7:36 AM) [facility] Glucose [Mass/Vol] 99 mg/dL Normal 82 - 115 mg/dL [facility] LABORATORYOrdered By: Shreya moore on 11-06-2024 Blood Glucose Testing Reason Routine (11/06/24 3:27 AM) [facility] LABORATORYOrdered By: Faina Steel on 11-06-2024 [...] 11-06-2024 Magnesium [Mass/Vol] 2.2 mg/dL Normal 1.6-2.4 [facility] MAIN Comment on above: Performed By: #### L AC #### [address] [address] Magnesium [Mass/Vol] 2.0 mg/dL Normal 1.6-2.4 [facility] MAIN Comment on above: Performed By: #### L AC #### [address] [address] XR CHEST 1 VIEWon 11-06-2024 XR CHEST [...] 6:39:04 AM Ordering Provider: EMILIO REYES Normal [facility] MAIN .Auto Diffon 11-05-2024 Basophil, Absolute 0.1 10 3/mcL Normal 0.0-0.3 [facility] MAIN Comment on above: Performed By: #### D RUGS #### [address] [address] Basophils/100 WBC (Bld) 0.5 % Normal 0.0-2.5 [facility] MAIN Comment on above: Performed By: #### D RUGS #### [place] [id number] [place] [address] Eosinophil, Absolute 0.0 10 3/mcL Normal 0.0-0.7 [facility] MAIN Comment on above: Performed By: #### D RUGS #### [facility] [address] [place] [address] Eosinophils/100 WBC (Bld) 0.1 % Normal 0.0-6.0 [facility] MAIN Comment on above: Performed By: #### D RUGS #### [facility] [address] [place] [address] Lymphocyte, Absolute 1.5 10 3/mcL Normal 0.9-4.3 [facility] MAIN Comment on above: Performed By: #### D RUGS #### [facility] [address] [place] [id number] Lymphocytes/100 WBC (Bld) 12.9 % Low 20.0-40.0 [facility] Comment on above: Performed By: #### D RUGS #### [address] [address] Monocyte, Absolute 1.2 10 3/mcL Normal 0.1-1.4 [facility] Comment on above: Performed By: #### D RUGS #### [address] [address] Monocytes/100 WBC (Bld) 10.6 % Normal 2.0-13.0 [facility] Comment on above: Performed By: #### D RUGS #### [address] [address] Neutrophils/100 WBC (Bld) 75.9 % High 50.0-75.0 [facility] Comment on above: Performed By: #### D RUGS #### [address] [address] .GFRon 11-05-2024 GFR >60 Normal [facility] Comment on above: Result [...] meters Performed By: #### D RUGS #### [address] [address] GFR Non- >60 Normal [facility] MAIN Comment on above: Result [...] meters Performed By: #### Amina GARZA #### [address] [address] .NEUABSon 11-05-2024 Neutrophil, Absolute 8.7 10 3/mcL High 2.3-8.1 [facility] Comment on above: Performed By: #### Amina GARZA #### [address] [address] BGon 11-05-2024 Base excess Calc (Bld) [Moles/Vol] 4.1 mmol/L Normal [facility] MAIN Comment on above: Performed By: #### Sidney G ####[address] [address] CO2 [Moles/Vol] 30.0 mmol/L Normal 22.0-30.0 [facility] MAIN Comment on above: Performed By: #### Sidney G ####[address] [address] HCO3 (Bld) [Moles/Vol] 28.7 mmol/L Normal 21.0-29.0 [facility] MAIN Comment on above: Performed By: #### Sidney G ####[address] [address] Oxygen (Bld) [Partial pressure] 73.4 mm[Hg] Low 74.0-108.0 [facility] MAIN Comment on above: Performed By: #### Sidney G ####[place] [id number] [place] [address] Oxygen saturation in Blood 94.7 % Normal 92.0-96.0 [facility] MAIN Comment on above: Performed By: #### Sidney G ####[address] [address] pCO2 42.9 mmHg Normal 32.0-46.0 [facility] MAIN Comment on above: Performed By: #### Sidney G ####[place] [address] pH (Bld) 7.443 [pH] Normal 7.380-7.460 [facility] MAIN Comment on above: Performed By: #### Sidney G ####[place] [address] CBCon 11-05-2024 Erythrocyte distribution width (RBC) [Ratio] 14.4 % Normal 11.5-15.5 [facility] MAIN Comment on above: Performed By: #### Amina RUGBre #### [place] [address] Hematocrit (Bld) [Volume fraction] 34.4 % Normal 34.0-46.0 [facility] MAIN Comment on above: Performed By: #### Amina RUGS #### [place] [address] Hgb 11.5 G/dL Low 12.0-16.0 [facility] MAIN Comment on above: Performed By: #### Amina GARZA #### [place] [address] MCH (RBC) [Entitic mass] 30.5 pg Normal 27.0-33.0 [facility] MAIN Comment on above: Performed By: #### Amina RUGS #### [place] [address] MCHC 33.5 G/dL Normal 32.0-36.0 [facility] MAIN Comment on above: Performed By: #### Amina RUGS #### [place] [address] MCV (RBC) [Entitic vol] 91.1 fL Normal 80.0-99.0 [facility] MAIN Comment on above: Performed By: #### Amina RUGS #### [place] [address] Platelet 423 10 3/mcL Normal 150-450 [facility] MAIN Comment on above: Performed By: #### Amina RUGS #### [place] [address] Platelet mean volume (Bld) [Entitic vol] 7.6 fL Normal 6.6-10.5 [facility] MAIN Comment on above: Performed By: #### Amina RUGS #### [place] [address] RBC 3.78 10 6/mcL Low 4.10-5.30 [facility] MAIN Comment on above: Performed By: #### Amina RUGS #### [place] [address] WBC 11.5 10 3/mcL High 4.5-10.8 [facility] MA[facility] Comment on above: Performed By: #### Amina RUGS #### [place] [address] CMPon 11-05-2024 Albumin Level 2.7 G/dL Low 3.2-4.8 [facility] MA[facility] Comment on above: Performed By: #### Amina RUGS #### [place] [address] Albumin/Globulin [Mass ratio] 0.8 {ratio} Low 0.9-1.6 [facility] MA[facility] Comment on above: Performed By: #### Amina RUGBre #### [place] [phone] ALP [Catalytic activity/Vol] 90 U/L Normal 38-126 [facility] MAIN Comment on above: Performed By: #### Amina RUGBre #### [place] [phone] ALT [Catalytic activity/Vol] 41 U/L Normal 10-49 [facility] MAIN Comment on above: Performed By: #### Amina RUGS #### [place] [phone] AST [Catalytic activity/Vol] 51 U/L High 8-34 [facility] MAIN Comment on above: Performed By: #### Amina RUGS #### [place] [address] Bili Total 0.40 mg/dL Normal 0.20-1.20 [facility] MAIN Comment on above: Result Comment: Use of this assay is not recommended for patients undergoing treatment with eltrombopag due to the potential for falsely elevated results. Performed By: #### D RUGS #### [place] [phone] BUN/Creatinine Ratio 28.7 ratio High 10.0-22.0 [facility] MAIN Comment on above: Performed By: #### D RUGS #### [place] [phone] Calcium [Mass/Vol] 8.5 mg/dL Low 8.7-10.4 [facility] MAIN Comment on above: Performed By: #### D RUGS #### [place] [phone] Chloride [Moles/Vol] 101 mmol/L Normal 98-110 [facility] MAIN Comment on above: Performed By: #### D RUGS #### [place] [phone] CO2 [Moles/Vol] 30 mmol/L Normal 22-32 [facility] MAIN Comment on above: Performed By: #### D RUGS #### [place] [phone] Creatinine [Mass/Vol] 0.87 mg/dL Normal 0.50-1.20 [facility] MAIN Comment on above: Result Comment: Test ing performed on [employer] analyzer using enzymatic creatinine methodology. Performed By: #### Amina RUGS #### [place] [phone] Electrolyte Balance 8.0 mEq/L Normal 4.0-15.0 [facility] MAIN Comment on above: Performed By: #### D RUGS #### [place] [phone] Globulin 3.3 G/dL Normal 1.5-3.8 [facility] MAIN Comment on above: Performed By: #### D RUGS #### [place] [phone] Glucose [Mass/Vol] 116 mg/dL High 82-115 [facility] MAIN Comment on above: Performed By: #### Amina RUGS #### [facility] [address] [place], [place] [address] Potassium [Moles/Vol] 4.6 mmol/L Normal 3.5-5.0 [facility] MAIN Comment on above: Performed By: #### D RUGS #### [address] [address] Sodium [Moles/Vol] 139 mmol/L Normal 136-145 [facility] MAIN Comment on above: Performed By: #### D RUGS #### [address] [address] Total Protein 6.0 G/dL Normal 5.7-8.2 [facility] MAIN Comment on above: Performed By: #### D RUGS #### [address] [address] Urea nitrogen [Mass/Vol] 25.0 mg/dL High 8.0-22.0 [facility] MAIN Comment on above: Performed By: #### D RUGS #### [address] [address] LABORATORYOrdered By: [employer] on 11-05-2024 Albumin BCP dye [Mass/Vol] [...] 11-05-2024 Magnesium [Mass/Vol] 2.0 mg/dL Normal 1.6-2.4 [facility] MAIN Comment on above: Performed By: #### D RUGS #### [place] [address] MYCOon 11-05-2024 Mycoplasma IgG Negative Normal [facility] MAIN Comment on above: Result Comment: INTE RPRETATION OF MYCOPLASMA IgG BY EIA: Negative: No detectable M. pneumoniae IgG antibody. Positive: Mycoplasma pneumoniae IgG antibody Detected. Equivocal: Equivocal for IgG antibodies to Mycoplasma pneumoniae. Suggest repeat testing in 10-14 days. Performed By: #### L AC #### [place] [address] XR CHEST 1 VIEWon 11-05-2024 XR CHEST [...] 11/05/2024 6:36:29 AM Ordering Provider: VANDANA Soto [facility] MAIN .Auto Diffon 11-04-2024 Basophil, Absolute 0.1 10 3/mcL Normal 0.0-0.3 [facility] MAIN Comment on above: Performed By: #### L AC #### [address] [address] Basophils/100 WBC (Bld) 0.5 % Normal 0.0-2.5 [facility] MAIN Comment on above: Performed By: #### L AC #### [address] [address] Eosinophil, Absolute 0.0 10 3/mcL Normal 0.0-0.7 [facility] Comment on above: Performed By: #### L AC #### [address] [address] Eosinophils/100 WBC (Bld) 0.0 % Normal 0.0-6.0 [facility] MAIN Comment on above: Performed By: #### L AC #### [address] [address] Lymphocyte, Absolute 0.5 10 3/mcL Low 0.9-4.3 [facility] Comment on above: Performed By: #### L AC #### [address] [address] Lymphocytes/100 WBC (Bld) 3.0 % Low 20.0-40.0 [facility] MAIN Comment on above: Performed By: #### L AC #### [address] [address] Monocyte, Absolute 0.6 10 3/mcL Normal 0.1-1.4 [facility] MAIN Comment on above: Performed By: #### L AC #### [address] [address] Monocytes/100 WBC (Bld) 3.2 % Normal 2.0-13.0 [facility] MAIN Comment on above: Performed By: #### L AC #### [address] [address] Neutrophils/100 WBC (Bld) 93.3 % High 50.0-75.0 [facility] MAIN Comment on above: Performed By: #### L AC #### [address] [address] .GFRon 11-04-2024 GFR >60 [facility] MAIN Comment on above: Result [...] meters Performed By: #### L AC #### [address] [address] GFR Non- >60 [facility] MAIN Comment on above: Result [...] meters Performed By: #### L AC #### [address] [address] .NEUABSon 11-04-2024 Neutrophil, Absolute 16.1 10 3/mcL High 2.3-8.1 [facility] MAIN Comment on above: Performed By: #### L AC #### [address] [address] BGon 11-04-2024 Base excess Calc (Bld) [Moles/Vol] 6.2 mmol/L Normal [facility] MAIN Comment on above: Performed By: #### C BC, ADIFF, ANEU, APTT, CMP, HFP, GFR #### [place] [phone] CO2 [Moles/Vol] 33.3 mmol/L High 22.0-30.0 [facility] MAIN Comment on above: Performed By: #### C BC, ADIFF, ANEU, APTT, CMP, HFP, GFR #### [place] [address] HCO3 (Bld) [Moles/Vol] 31.8 mmol/L High 21.0-29.0 [facility] MAIN Comment on above: Performed By: #### C BC, ADIFF, ANEU, APTT, CMP, HFP, GFR #### [place] [phone] Oxygen (Bld) [Partial pressure] 105.8 mm[Hg] Normal 74.0-108.0 [facility] MAIN Comment on above: Performed By: #### C BC, ADIFF, ANEU, APTT, CMP, HFP, GFR #### [place] [phone] Oxygen saturation in Blood 98.1 % High 92.0-96.0 [facility] MAIN Comment on above: Performed By: #### C BC, ADIFF, ANEU, APTT, CMP, HFP, GFR #### [place] [phone] pCO2 49.5 mmHg High 32.0-46.0 [facility] MAIN Comment on above: Performed By: #### C BC, ADIFF, ANEU, APTT, CMP, HFP, GFR #### [place] [phone] pH (Bld) 7.425 [pH] Normal 7.380-7.460 [facility] MAIN Comment on above: Performed By: #### C BC, ADIFF, ANEU, APTT, CMP, HFP, GFR #### [place] [address] CBCon 11-04-2024 Erythrocyte distribution width (RBC) [Ratio] 14.4 % Normal 11.5-15.5 [facility] MAIN Comment on above: Performed By: #### L AC #### [place] [address] Hematocrit (Bld) [Volume fraction] 35.3 % Normal 34.0-46.0 [facility] MAIN Comment on above: Performed By: #### L AC #### [place] [address] Hgb 11.9 G/dL Low 12.0-16.0 [facility] MAIN Comment on above: Performed By: #### L AC #### [place] [address] MCH (RBC) [Entitic mass] 30.6 pg Normal 27.0-33.0 [facility] MAIN Comment on above: Performed By: #### L AC #### [place] [address] MCHC 33.7 G/dL Normal 32.0-36.0 [facility] MAIN Comment on above: Performed By: #### L AC #### [place] [address] MCV (RBC) [Entitic vol] 90.7 fL Normal 80.0-99.0 [facility] MAIN Comment on above: Performed By: #### L AC #### [place] [address] Platelet 442 10 3/mcL Normal 150-450 [facility] MAIN Comment on above: Performed By: #### L AC #### [place] [phone] Platelet mean volume (Bld) [Entitic vol] 6.9 fL Normal 6.6-10.5 [facility] MAIN Comment on above: Performed By: #### L AC #### [place] [address] RBC 3.89 10 6/mcL Low 4.10-5.30 [facility] MAIN Comment on above: Performed By: #### L AC #### [place] [address] WBC 17.2 10 3/mcL High 4.5-10.8 [facility] MAIN Comment on above: Performed By: #### L AC #### [place] [address] CBC + DIFFon 11-04-2024 Baso # 0.10 x10EE3/UL Normal 0.00 - 0.10 [facility] Comment on above: Performed By: #### 2 [address]229 ####[facility],[address] [place], [place] [id number] Basophils/100 WBC (Bld) 0.7 % Normal 0.0 - 2.0 [facility] Comment on above: Performed By: #### 2 50760 ####[facility],[address] [place] [address] CBC + DIFF Normal [facility] Comment on above: Result Comment: CBC- COMPLETE BLOOD COUNT Performed By: #### 2 91055 ####[facility],[address] [place] [address] EO # 0.12 x10EE3/UL Normal 0.00 - 0.50 [facility] Comment on above: Performed By: #### 2 50325 ####[facility],[address] [place] [address] Eosinophils/100 WBC (Bld) 0.8 % Normal 0.0 - 7.0 [facility] Comment on above: Performed By: #### 2 44368 ####[place] [address] Erythrocyte distribution width (RBC) [Ratio] 14.1 % Normal 12.0 - 15.6 [facility] Comment on above: Performed By: #### 2 [address]1677 ####[facility],[address] [place], [place] [id number] Hematocrit (Bld) [Volume fraction] 36.4 % Normal 34.0 - 46.0 [facility] Comment on above: Performed By: #### 2 44246 ####[facility],[address] [place] [address] Hemoglobin (Bld) [Mass/Vol] 11.9 g/dL Low 12.0 - 16.0 [facility] Comment on above: Performed By: #### 2 39412 ####[facility],[address] [place], [place] [id number] Lymph # 6.40 x10EE3/UL High 0.80 - 2.80 [facility] Comment on above: Performed By: #### 2 02042 ####[facility],[address] [place] [address] Lymphocytes/100 WBC (Bld) 43.9 % Normal 20.0 - 45.0 [facility] Comment on above: Performed By: #### 2 64528 ####[facility],[address] [place] [address] MANUAL DIFF N/A Normal [facility] Comment on above: Performed By: #### 2 62792 ####[facility],[address] [place] [address] MCH (RBC) [Entitic mass] 30 pg Normal 27 - 33 [facility] Comment on above: Performed By: #### 2 52343 ####[facility],[address] [place] [address] MCHC 33 X10 3 Normal 32 - 36 [facility] Comment on above: Performed By: #### 2 36865 ####[facility],[address] [place] [address] MCV (RBC) [Entitic vol] 93 fL Normal 80 - 99 [facility] Comment on above: Performed By: #### 2 57238 ####[facility],[address] [place] [address] [place] # 1.36 x10EE3/UL High 0.20 - 1.00 [facility] Comment on above: Performed By: #### 2 08205 ####[facility],[address] [place] [address] MONOS % 9.4 % Normal 0.0 - 10.0 [facility] Comment on above: Performed By: #### 2 56515 ####[facility],[address] [place] [address] Morphology Dandy (Bld) [Interp] N/A Normal [facility] Comment on above: Performed By: #### 2 34240 ####[facility],[address] [place] [address] Neut # 6.60 x10EE3/UL Normal 1.50 - 7.10 [facility] Comment on above: Performed By: #### 2 30788 ####[facility],[address] [place] [address] Neutrophils/100 WBC (Bld) 45.3 % Low 46.0 - 76.0 [facility] Comment on above: Performed By: #### 2 14346 ####[facility],[address] [place] [address] PLATELET 608 x10EE3/UL High 150 - 450 [facility] Comment on above: Performed By: #### 2 31942 ####[facility],[address] [place] [address] Platelet mean volume (Bld) [Entitic vol] 7.8 fL Normal 6.6 - 10.5 [facility] Comment on above: Result Comment: AUTO MATED DIFFERENTIAL Performed By: #### 2 00597 ####[facility],[address] [place] [address] RBC 3.92 x 10EE6/UL Low 4.10 - 5.30 [facility] Comment on above: Performed By: #### 2 92736 ####[facility],[address] [place] [address] WBC 14.6 x 10EE3/UL High 4.5 - 10.8 [facility] Comment on above: Performed By: #### 2 23063 ####[facility],[address] [place] [address] CHEST 1 VIEWon 11-04-2024 CHEST [address] [facility] CHEST 1 VIEW (PICC/ET PLACEM ENTon 11-04-2024 CHEST 1 VIEW (PICC/ET PLACEMENT Normal [facility] CMPon 11-04-2024 Albumin Level 3.1 G/dL Low 3.2-4.8 [facility] Comment on above: Performed By: #### L AC #### [place] [address] Albumin/Globulin [Mass ratio] 0.8 {ratio} Low 0.9-1.6 [facility] Comment on above: Performed By: #### L AC #### [address] [address] ALP [Catalytic activity/Vol] 99 U/L Normal 38-126 [facility] MAIN Comment on above: Performed By: #### L AC #### [place] [address] ALT [Catalytic activity/Vol] 42 U/L Normal 10-49 [facility] Comment on above: Performed By: #### L AC #### [address] [address] AST [Catalytic activity/Vol] 52 U/L High 8-34 [facility] Comment on above: Performed By: #### L AC #### [place] [phone] Bili Total 0.40 mg/dL Normal 0.20-1.20 [facility] MAIN Comment on above: Result Comment: Use of this assay is not recommended for patients undergoing treatment with eltrombopag due to the potential for falsely elevated results. Performed By: #### L AC #### [address] [address] BUN/Creatinine Ratio 23.0 ratio High 10.0-22.0 [facility] MAIN Comment on above: Performed By: #### L AC #### [address] [address] Calcium [Mass/Vol] 8.8 mg/dL Normal 8.7-10.4 [facility] MAIN Comment on above: Performed By: #### L AC #### [address] [address] Chloride [Moles/Vol] 100 mmol/L Normal 98-110 [facility] MAIN Comment on above: Performed By: #### L AC #### [address] [address] CO2 [Moles/Vol] 33 mmol/L High 22-32 [facility] MA[facility] Comment on above: Performed By: #### L AC #### [address] [address] Creatinine [Mass/Vol] 0.74 mg/dL Normal 0.50-1.20 [facility] MAIN Comment on above: Result Comment: Test ing performed on [employer] analyzer using enzymatic creatinine methodology. Performed By: #### L AC #### [address] [address] Electrolyte Balance 9.0 mEq/L Normal 4.0-15.0 [facility] MA[facility] Comment on above: Performed By: #### L AC #### [address] [address] Globulin 3.8 G/dL Normal 1.5-3.8 [facility] Comment on above: Performed By: #### L AC #### [address] [address] Glucose [Mass/Vol] 140 mg/dL High 82-115 [facility] Comment on above: Performed By: #### L AC #### [address] [address] Potassium [Moles/Vol] 3.0 mmol/L Low 3.5-5.0 [facility]IN Comment on above: Performed By: #### L AC #### [place] [address] [place] [address] Sodium [Moles/Vol] 142 mmol/L Normal 136-145 [facility] MAIN Comment on above: Performed By: #### L AC #### [facility] [address] [place] [address] Total Protein 6.9 G/dL Normal 5.7-8.2 [facility] Comment on above: Performed By: #### L AC #### [address] [address] Urea nitrogen [Mass/Vol] 17.0 mg/dL Normal 8.0-22.0 [facility] Comment on above: Performed By: #### L AC #### [place] [phone] CMP with eGFRon 11-04-2024 AGE 69 years Normal [facility] Comment on above: Performed By: #### 2 62763 ####[facility],[address] [place] [address] Albumin [Mass/Vol] 3.0 g/dL Low 3.4 - 5.0 [facility] Comment on above: Performed By: #### 2 59323 ####[facility],[address] [place] [address] Albumin/Globulin [Mass ratio] 0.7 {ratio} Low 0.9 - 1.6 [facility] Comment on above: Performed By: #### 2 55695 ####[facility],[address] [place] [address] ALK PHOS 99 U/L Normal 46 - 116 [facility] Comment on above: Performed By: #### 2 67314 ####[facility],[address] [place] [address] ALT [Catalytic activity/Vol] 39 U/L Normal 16 - 63 [facility] Comment on above: Performed By: #### 2 04677 ####[facility],[address] [place] [address] Anion gap [Moles/Vol] 14 mmol/L Normal 10 - 20 [facility] Comment on above: Performed By: #### 2 58253 ####[facility],[address] [place] [address] AST [Catalytic activity/Vol] 41 U/L High 13 - 39 [facility] Comment on above: Performed By: #### 2 40932 ####[facility],[address] [place] [address] B/C RATIO 12 ratio Normal 0 - 30 [facility] Comment on above: Performed By: #### 2 39159 ####[facility],[address] [place] [address] Bilirubin [Mass/Vol] 0.5 mg/dL Normal 0.2 - 1.0 [facility] Comment on above: Performed By: #### 2 55498 ####[facility],[address] [place] [address] Calcium [Mass/Vol] 8.5 mg/dL Normal 8.5 - 10.1 [facility] Comment on above: Performed By: #### 2 97723 ####[facility],[address] [place] [address] Chloride [Moles/Vol] 100 mmol/L Normal 98 - 107 [facility] Comment on above: Performed By: #### 2 98013 ####[facility],[address] [place] [address] CMP with eGFR Normal [facility] Comment on above: Result Comment: COMP REHENSIVE METABOLIC PANEL Performed By: #### 2 53683 ####[facility],[address] [place] [address] CO2 [Moles/Vol] 28.6 mmol/L Normal 21.0 - 32.0 [facility] Comment on above: Performed By: #### 2 80604 ####[facility],[address] [place] [address] Creatinine [Mass/Vol] 1.22 mg/dL High 0.55 - 1.02 [facility] Comment on above: Performed By: #### 2 04686 ####[facility],[address] [place] [address]44 eGFR 44 ML/MINUTE Low 60 - 999 [facility] Comment on above: Performed By: #### 2 83795 ####[facility],[address] [place] [address] eGFR(AA) 53 ML/MINUTE Low 60 - 999 [facility] Comment on above: Result Comment: ACCO RDING TO THE NATIONAL KIDNEY DISEASE EDUCATION PROGRAM(NKDE), A NORMAL eGFRIS A VALUE GREATER THAN OR EQUAL TO 60 ML/MIN/1.73 SQ METERS.CHRONIC KIDNEY DISEASE: <60mL/MIN/1.73 SQ METERSKIDNEY FAILURE: <15mL/MIN/1.73 SQ METERSTHIS TEST SHOULD ONLY BE USED FOR PATIENTS 18 YEARS OF AGE AND OLDER. Performed By: #### 2 71670 ####[facility] [facility],[address] [place] [address] 58018 Globulin (S) [Mass/Vol] 4.1 g/dL High 1.5 - 3.8 [facility] Comment on above: Performed By: #### 2 27074 ####[facility],[address] [place] [address] 43062 Glucose [Mass/Vol] 296 mg/dL High 74 - 106 [facility] Comment on above: Performed By: #### 2 37673 ####[facility],[address] [place] [address] 68533 Potassium [Moles/Vol] 2.6 mmol/L Critically low 3.5 - 5.1 [facility] Comment on above: Result Comment: { CA LLED TO N MCKEON 07:31 MKY{ READ BACK BY SAME Performed By: #### 2 80196 ####[facility],[address] [place] [address] 42638 Protein [Mass/Vol] 7.1 g/dL Normal 6.4 - 8.2 [facility] Comment on above: Performed By: #### 2 35183 ####[facility],[address] [place] [address] Sodium [Moles/Vol] 140 mmol/L Normal 136 - 145 [facility] Comment on above: Performed By: #### 2 23734 ####[facility],[address] [place] [address] Urea nitrogen [Mass/Vol] 15 mg/dL Normal 7 - 18 [facility] Comment on above: Performed By: #### 2 11348 ####[facility],[address] [place] [address] CORONAVIRUS (SARS) ANTIGEN T ESTon 11-04-2024 EXTERNAL QC DONE? YES Normal [facility] Comment on above: Performed By: #### 2 16065 ####[facility],[address] [place] [address] INTERNAL CONTROL PASS Normal [facility] Comment on above: Performed By: #### 2 64321 ####[facility],[address] [place] [address] SARS ANTIGEN Negative Normal NORMAL: NEGATIVE [facility] Comment on above: Performed By: #### 2 52533 ####[facility],[address] [place] [address] SEND TO ? NO Normal [facility] Comment on above: Result Comment: SARS -CoV-2THIS TEST IS BEING USED UNDER THE FDA EUA PROCEDURE. THIS ASSAY HAS BEENVALIDATED AT [facility] FOR USE WITH NASAL AND NASOPHARYNGEAL SWABSPECIMENS.INTERPRETIVE [...] BY HEALTHCARE PROVIDERS IN CONSULTATION WITH PUBLIC [facility]. Performed By: #### 2 69314 ####[facility],[address] [place], [place] [id number] CT ANGIOGRAPHY CHEST W/CONTR Darling 11-04-2024 CT [...] 8:33:11 PM Ordering Provider: KAYLA RYAN [facility] CT CHEST (PE PROTOCOL)on CT CHEST (PE PROTOCOL) Normal [facility] CULTURE BLOOD [MARIA TERESA]on Microscopic examination of blood, culture CULTURE BLOOD [MARIA TERESA] _BLOOD CULTURE_ GO TO [facility] REPORTS AND ATTACHMENTS FOR SCANNED REPORT 11/11/24.1113.[facility] Comment on above: Performed By: #### 2 74864 ####[facility],[address] [place] [address] Microscopic examination of blood, culture CULTURE BLOOD [MARIA TERESA] _BLOOD CULTURE_ GO TO [facility] REPORTS AND ATTACHMENTS FOR SCANNED REPORT 11/11/24.1114.DNP.COMP [facility] Comment on above: Performed By: #### 2 96014 ####[facility],[address] [place] [address] CVFLURVon 11-04-2024 FLU A PCR Negative Normal Negative [facility] Comment on above: Result Comment: Note s [phone] Performed By: #### L AC #### [place] [address] FLU B PCR Negative Normal Negative [facility] Comment on above: Result Comment: Note s [id number] Performed By: #### L AC #### [place] [address] RSV PCR Negative Normal Negative [facility] Comment on above: Result Comment: Note s [phone] Performed By: #### L AC #### [place] [address] SARS-CoV-2 (COVID-19) RNA ALEJANDRO+probe Ql (Unsp spec) Negative Normal Negative [facility] Comment on above: Result Comment: Note s [id number] This test has been authorized by FDA [...] results. Performed By: #### L AC #### [place] [address] D-DIMER, QUANTITATIVEon 10-23 D-DIMER QUANT 1795 ng/ml High 0 - 230 [facility] Comment on above: Performed By: #### 2 83639 ####[facility],[address] [place], [place] [id number] D-DIMER, QUANTITATIVE Normal [facility] Comment on above: Result Comment: SILVANO T D-DIMER Performed By: #### 2 78338 ####[facility],[address] [place] [address] 50153 FEon 11-04-2024 Iron [Mass/Vol] 18 ug/dL Low 50-170 [facility] Comment on above: Performed By: #### L AC #### [place] [id number] Perry 11-04-2024 Ferritin [Mass/Vol] 88.7 ng/mL Normal 8.0-252.0 [facility] Comment on above: Performed By: #### L AC #### [place] [id number] IBCon 11-04-2024 TIBC 328 mcg/dL Normal 250-500 [facility] Comment on above: Performed By: #### L AC #### [place] [address] INFLUENZA VIRUS RAPID A/Bon 11-04-2024 INFLUENZA VIRUS RAPID A/B Normal [facility] Comment on above: Performed By: #### 2 12182 ####[facility],[address] [place] [address] LABORATORYOrdered By: [employer] on 11-04-2024 Natriuretic peptide.B prohormone N-Terminal [...] Lactic Acid Lvl 1.4 mmol/L Normal 0.5-2.2 [facility] Comment on above: Performed By: #### L AC #### [place] [address] LACTATEon 11-04-2024 Lactate [Moles/Vol] 1.8 mmol/L Normal 0.4 - 2.0 [facility] Comment on above: Performed By: #### 2 23255 ####[facility],[address] [place], [place] [id number] Lactate [Moles/Vol] 4.6 mmol/L Critically high 0.4 - 2.0 [facility] Comment on above: Result Comment: { CA LLED TO N [place] 0727 MKY{ READ BACK BY SAME LACTATE 3 HR NOTIFIED TO: _ENRIQUE_P 11/04/24.MKY. . . LACTATE 3 HR NOTIFIED BY: _MKY 11/04/24.MKY. . . Performed By: #### 2 85868 ####[facility],[address] [place] [address] 05040 MGon 11-04-2024 Magnesium [Mass/Vol] 1.9 mg/dL Normal 1.6-2.4 [facility] Comment on above: Performed By: #### L AC #### [place] [address] MYCOon 11-04-2024 Mycoplasma IgM Negative Normal [facility] Comment on above: Result Comment: INTE RPRETATION OF MYCOPLASMA IgM: Negative: IgM to M. pneumoniae Absent, or at levels below the assay limit of detection. Positive: IgM to M. pneumoniae Present. Invalid: Test results are invalid due to invalid internal control. Assay was performed in duplicate. Repeat testing is suggested if clinically indicated. Performed By: #### L AC #### [place] [address] NT-proBNPon 11-04-2024 Natriuretic peptide B (Bld) [Mass/Vol] 4211 pg/mL High 0 - 125 [facility] Comment on above: Performed By: #### 2 58308 ####[facility],[address] [place] [address] 37712 No Panel Informationon 11-04 Legionella Urine Ag Presumptive negative for L. pneumophila serogroup 1 antigen in urine, suggesting no recent or current infection. Legionnaire's disease cannot be ruled out since other serogroups and species may also cause disease. [facility] Streptococcus Pneumoniae Urine Antig Presumptive negative for pneumococcal pneumonia, suggesting no current or recent pneumococcal infection. Infection due to Strep pneumoniae cannot be ruled out since the antigen present in the sample may be below the detection limit of the test. [facility] Comment on above: This test has not be en evaluated on patients taking antibiotics for greater than 24 hours or on patients who have recently completed an antibiotic regimen. The accuracy of this test has not been proven in young children. Microscopic examination of blood, culture Blood Culture: No Growth at 5 days. [facility] PBNPon 11-04-2024 Natriuretic peptide B (Bld) [Mass/Vol] 7106 pg/mL High 0-900 [facility] Comment on above: Order Comment: use e xisting specimen Performed By: #### L AC #### [place] [address] RSVon 11-04-2024 RSV Normal [facility] Comment on above: Performed By: #### 2 57884 ####[address] [address] TRFon 11-04-2024 Transferrin [Mass/Vol] 278 mg/dL Normal 202-336 [facility] Comment on above: Performed By: #### L AC #### [place] [address] TROPONINon 11-04-2024 HS TROPONIN 27.6 pg/mL Normal 0.0 - 51.4 [facility] Comment on above: Performed By: #### 2 87005 ####[address] [address] URINALYSISon 11-04-2024 Amorphous NONE Normal [facility] Comment on above: Performed By: #### 2 64804 ####[address] [address] Bacteria TRACE Normal [facility] Comment on above: Performed By: #### 2 97710 ####[address] [address] Bilirubin Ql (U) Negative Normal NORMAL: NEGATIVE [facility] Comment on above: Performed By: #### 2 86719 ####[facility],[address] [place] [address] 48065 Casts NONE Normal [facility] Comment on above: Performed By: #### 2 18409 ####[facility],[address] [place] [address] 06162 Clarity (U) clear Normal NORMAL: CLEAR [facility] Comment on above: Performed By: #### 2 23854 ####[facility],[address] [place] [address] 27671 Color (U) yellow Normal NORMAL: YELLOW [facility] Comment on above: Performed By: #### 2 16702 ####[facility],[address] [place] [address] 23796 Crystals LM Nom (Urine sed) NONE Normal [facility] Comment on above: Performed By: #### 2 76965 ####[facility],[address] [place] [address] 67338 Epi Cells NONE Normal [facility] Comment on above: Performed By: #### 2 60837 ####[facility],[address] [place] [address] 84523 Glucose Ql (U) 250 Abnormal NORMAL: NORMAL [facility] Comment on above: Performed By: #### 2 00765 ####[facility],[address] [place] [address] 65095 Hemoglobin Ql (U) 25 Abnormal NORMAL: NEGATIVE [facility] Comment on above: Performed By: #### 2 98445 ####[facility],[address] [place] [address] 46687 Ketone Negative Normal NORMAL: NEGATIVE [facility] Comment on above: Performed By: #### 2 81920 ####[facility],[address] [place] [address] 34938 Leukocytes Negative Normal NORMAL: NEGATIVE [facility] Comment on above: Performed By: #### 2 50539 ####[facility],[address] [place] [address] 08893 Mucous NONE Normal [facility] Comment on above: Performed By: #### 2 25032 ####[facility],[address] [place] [address] 55473 Nitrite Ql (U) Negative Normal NORMAL: NEGATIVE [facility] Comment on above: Performed By: #### 2 31336 ####[facility],[address] [place] [address] pH (U) 7 [pH] Normal NORMAL: 5.0-8.0 [facility] Comment on above: Performed By: #### 2 30879 ####[facility],[address] [place] [address] Protein Ql (U) 500 Abnormal NORMAL: NEGATIVE [facility] Comment on above: Performed By: #### 2 87759 ####[facility],[address] [place] [address] Rbc 5-10 Normal 0-3/hpf [facility] Comment on above: Performed By: #### 2 87804 ####[facility],[address] [place] [address] Sp [place] 1.010 Normal NORMAL: 1.010-1.030 [facility] Comment on above: Performed By: #### 2 09885 ####[facility],[address] [place], [place] [id number] Specimen Type R Normal [facility] Comment on above: Performed By: #### 2 99758 ####[facility],[address] [place], [place] [id number] Urinalysis dipstick W Reflex Microscopic panel (U) SEE BELOW Normal [facility] Comment on above: Result Comment: MICR OSCOPIC Performed By: #### 2 35771 ####[facility],[address] [place] [address] 22578 Urobilinog NORM Normal NORMAL: NORMAL [facility] Comment on above: Performed By: #### 2 38741 ####[facility],[address] [place] [address] 49070 Wbc 1-5 Normal 0-5/hpf [facility] Comment on above: Performed By: #### 2 31807 ####[facility],[address] [place] [address] 65767 Yeast NONE Normal [facility] Comment on above: Performed By: #### 2 63332 ####[facility],[address] [place] [address] URINE CULTURE [CCL]on 2024 Bacteria identified Cx Nom (U) Normal [facility] Comment on above: Performed By: #### 2 48485 ####[facility],[address] [place] [address] XR ABDOMEN APon 11-04-2024 XR ABDOMEN AP [...] 11/04/2024 12:56:39 PM Ordering Provider: KAYLA RYAN [facility] XR CHEST 1 VIEWon [...] 11/04/2024 12:56:39 PM Ordering Provider: KAYLA RYAN [facility] CBC + DIFF DAILYon Baso # 0.04 x10EE3/UL Normal 0.00 - 0.10 [facility] Comment on above: Performed By: #### 2 46423 ####[facility],[address] [place] [address] Basophils/100 WBC (Bld) 0.6 % Normal 0.0 - 2.0 [facility] Comment on above: Performed By: #### 2 41073 ####[facility],[address] [place] [address] CBC + DIFF DAILY Normal [facility] Comment on above: Result Comment: CBC- COMPLETE BLOOD COUNT Performed By: #### 2 09396 ####[place] [address] EO # 0.13 x10EE3/UL Normal 0.00 - 0.50 [facility] Comment on above: Performed By: #### 2 31746 ####[facility],[address] [place], [place] [id number] Eosinophils/100 WBC (Bld) 2.0 % Normal 0.0 - 7.0 [facility] Comment on above: Performed By: #### 2 67112 ####[facility],[address] [place] [address] Erythrocyte distribution width (RBC) [Ratio] 14.2 % Normal 12.0 - 15.6 [facility] Comment on above: Performed By: #### 2 01786 ####[facility],[address] [place] [address] Hematocrit (Bld) [Volume fraction] 34.4 % Normal 34.0 - 46.0 [facility] Comment on above: Performed By: #### 2 69209 ####[facility],[address] [place] [address] Hemoglobin (Bld) [Mass/Vol] 11.3 g/dL Low 12.0 - 16.0 [facility] Comment on above: Performed By: #### 2 02740 ####[facility],[address] [place] [address] Lymph # 1.74 x10EE3/UL Normal 0.80 - 2.80 [facility] Comment on above: Performed By: #### 2 28352 ####[facility],[address] [place], [place] [id number] Lymphocytes/100 WBC (Bld) 26.5 % Normal 20.0 - 45.0 [facility] Comment on above: Performed By: #### 2 73638 ####[facility],[address] [place], [place] [id number] MANUAL DIFF N/A Normal [facility] Comment on above: Performed By: #### 2 60047 ####[facility],[address] [place], [place] [id number] MCH (RBC) [Entitic mass] 30 pg Normal 27 - 33 [facility] Comment on above: Performed By: #### 2 94392 ####[facility],[address] [place] [address] MCHC 33 X10 3 Normal 32 - 36 [facility] Comment on above: Performed By: #### 2 59520 ####[facility],[address] [place], [place] [id number] MCV (RBC) [Entitic vol] 93 fL Normal 80 - 99 [facility] Comment on above: Performed By: #### 2 46868 ####[facility],[address] [place] [address] [place] # 0.86 x10EE3/UL Normal 0.20 - 1.00 [facility] Comment on above: Performed By: #### 2 85518 ####[facility],[address] [place] [address] MONOS % 13.1 % High 0.0 - 10.0 [facility] Comment on above: Performed By: #### 2 59677 ####[facility],[address] [place] [address] Morphology Dandy (Bld) [Interp] N/A Normal [facility] Comment on above: Performed By: #### 2 62122 ####[facility],[address] [place] [address] Neut # 3.81 x10EE3/UL Normal 1.50 - 7.10 [facility] Comment on above: Performed By: #### 2 45576 ####[facility],[address] [place] [address] Neutrophils/100 WBC (Bld) 57.8 % Normal 46.0 - 76.0 [facility] Comment on above: Performed By: #### 2 09154 ####[facility],[address] [place] [address] PLATELET 308 x10EE3/UL Normal 150 - 450 [facility] Comment on above: Performed By: #### 2 37237 ####[facility],[address] [place] [address]16[address] Platelet mean volume (Bld) [Entitic vol] 7.4 fL Normal 6.6 - 10.5 [facility] Comment on above: Result Comment: AUTO MATED DIFFERENTIAL Performed By: #### 2 33471 ####[facility],[address] [place] [address] 16023 RBC 3.71 x 10EE6/UL Low 4.10 - 5.30 [facility] Comment on above: Performed By: #### 2 52686 ####[facility],[address] [place] [address] 69723 WBC 6.6 x 10EE3/UL Normal 4.5 - 10.8 [facility] Comment on above: Performed By: #### 2 92148 ####[facility],[address] [place] [address] 50232 CMP with eGFR - DAILYon -0 AGE 69 years Normal [facility] Comment on above: Performed By: #### 2 88257 ####[facility],[address] [place] [address] 11003 Albumin [Mass/Vol] 2.4 g/dL Low 3.4 - 5.0 [facility] Comment on above: Performed By: #### 2 28786 ####[facility],[address] [place] [address] 49917 Albumin/Globulin [Mass ratio] 0.7 {ratio} Low 0.9 - 1.6 [facility] Comment on above: Performed By: #### 2 21554 ####[facility],[address] [place] [address] 79634 ALK PHOS 99 U/L Normal 46 - 116 [facility] Comment on above: Performed By: #### 2 83217 ####[facility],[address] [place] [address] 11577 ALT [Catalytic activity/Vol] 51 U/L Normal 16 - 63 [facility] Comment on above: Performed By: #### 2 60281 ####[facility],[address] [place] [address] 01946 Anion gap [Moles/Vol] 9 mmol/L Low 10 - 20 [facility] Comment on above: Performed By: #### 2 17956 ####[facility],[address] [place] [address] 78945 AST [Catalytic activity/Vol] 31 U/L Normal 13 - 39 [facility] Comment on above: Performed By: #### 2 02595 ####[facility],[address] [place] [address] 90491 B/C RATIO 20 ratio Normal 0 - 30 [facility] Comment on above: Performed By: #### 2 63846 ####[facility],[address] [place] [address] 93288 Bilirubin [Mass/Vol] 0.5 mg/dL Normal 0.2 - 1.0 [facility] Comment on above: Performed By: #### 2 18674 ####[facility],[address] [place] [address] 91538 Calcium [Mass/Vol] 8.7 mg/dL Normal 8.5 - 10.1 [facility] Comment on above: Performed By: #### 2 43105 ####[facility],[address] [place] [address] 82424 Chloride [Moles/Vol] 104 mmol/L Normal 98 - 107 [facility] Comment on above: Performed By: #### 2 68451 ####[facility],[address] [place] [address] 26445 CMP with eGFR - DAILY Normal [facility] Comment on above: Result Comment: COMP REHENSIVE METABOLIC PANEL Performed By: #### 2 01751 ####[facility],[address] [place] [address] 02387 CO2 [Moles/Vol] 31.4 mmol/L Normal 21.0 - 32.0 [facility] Comment on above: Performed By: #### 2 44264 ####[facility],[address] [place] [address] 96450 Creatinine [Mass/Vol] 0.82 mg/dL Normal 0.55 - 1.02 [facility] Comment on above: Performed By: #### 2 78712 ####[facility],[address] [place] [address] GFR/1.73 sq M.predicted among non-blacks MDRD (S/P/Bld) [Vol rate/Area] mL/min/{1.73_m2} Normal 60 - 999 [facility] Comment on above: Performed By: #### 2 96590 ####[facility],[address] [place] [address] Result Comment: ACCO RDING TO THE NATIONAL KIDNEY DISEASE EDUCATION PROGRAM(NKDE), A NORMAL eGFRIS A VALUE GREATER THAN OR EQUAL TO 60 ML/MIN/1.73 SQ METERS.CHRONIC KIDNEY DISEASE: <60mL/MIN/1.73 SQ METERSKIDNEY FAILURE: <15mL/MIN/1.73 SQ METERS Globulin (S) [Mass/Vol] 3.6 g/dL Normal 1.5 - 3.8 [facility] Comment on above: Performed By: #### 2 30484 ####[facility],[address] [place] [address] 03251 Glucose [Mass/Vol] 121 mg/dL High 74 - 106 [facility] Comment on above: Performed By: #### 2 14974 ####[facility],[address] [place] [address] 25708 Potassium [Moles/Vol] 3.4 mmol/L Low 3.5 - 5.1 [facility] Comment on above: Performed By: #### 2 73037 ####[facility],[address] [place] [address] 29600 Protein [Mass/Vol] 6.0 g/dL Low 6.4 - 8.2 [facility] Comment on above: Performed By: #### 2 22739 ####[facility],[address] [place] [address] 83298 Sodium [Moles/Vol] 141 mmol/L Normal 136 - 145 [facility] Comment on above: Performed By: #### 2 73240 ####[facility],[address] [place] [address] Urea nitrogen [Mass/Vol] 16 mg/dL Normal 7 - 18 [facility] Comment on above: Performed By: #### 2 56734 ####[facility],[address] [place] [address] CBC + DIFF DAILYon 4 Baso # 0.05 x10EE3/UL Normal 0.00 - 0.10 [facility] Comment on above: Performed By: #### 2 89360 ####[facility],[address] [place] [address] 54621 Basophils/100 WBC (Bld) 0.7 % Normal 0.0 - 2.0 [facility] Comment on above: Performed By: #### 2 23134 ####[facility],[address] [place] [address] 82070 CBC + DIFF DAILY Normal [facility] Comment on above: Result Comment: CBC- COMPLETE BLOOD COUNT Performed By: #### 2 46919 ####[facility],[address] [place] [address] 75346 EO # 0.07 x10EE3/UL Normal 0.00 - 0.50 [facility] Comment on above: Performed By: #### 2 86714 ####[facility],[address] [place] [address] 58150 Eosinophils/100 WBC (Bld) 1.1 % Normal 0.0 - 7.0 [facility] Comment on above: Performed By: #### 2 31168 ####[facility],[address] [place], [place] [id number] Erythrocyte distribution width (RBC) [Ratio] 14.0 % Normal 12.0 - 15.6 [facility] Comment on above: Performed By: #### 2 55174 ####[facility],[address] [place] [address] Hematocrit (Bld) [Volume fraction] 32.5 % Low 34.0 - 46.0 [facility] Comment on above: Performed By: #### 2 74185 ####[facility],[address] [place] [address] Hemoglobin (Bld) [Mass/Vol] 10.8 g/dL Low 12.0 - 16.0 [facility] Comment on above: Performed By: #### 2 67478 ####[facility],[address] [place] [address] Lymph # 1.69 x10EE3/UL Normal 0.80 - 2.80 [facility] Comment on above: Performed By: #### 2 41059 ####[facility],[address] [place] [address] Lymphocytes/100 WBC (Bld) 25.1 % Normal 20.0 - 45.0 [facility] Comment on above: Performed By: #### 2 58303 ####[facility],[address] [place] [address] MANUAL DIFF N/A Normal [facility] Comment on above: Performed By: #### 2 12315 ####[facility],[address] [place] [address] MCH (RBC) [Entitic mass] 31 pg Normal 27 - 33 [facility] Comment on above: Performed By: #### 2 85815 ####[place] [address] MCHC 33 X10 3 Normal 32 - 36 [facility] Comment on above: Performed By: #### 2 95025 ####[facility],[address] [place] [address] MCV (RBC) [Entitic vol] 92 fL Normal 80 - 99 [facility] Comment on above: Performed By: #### 2 33954 ####[facility],[address] [place] [address] [place] # 0.93 x10EE3/UL Normal 0.20 - 1.00 [facility] Comment on above: Performed By: #### 2 32069 ####[facility],[address] [place] [address] MONOS % 13.8 % High 0.0 - 10.0 [facility] Comment on above: Performed By: #### 2 88512 ####[facility],[address] [place] [address] Morphology Dandy (Bld) [Interp] N/A Normal [facility] Comment on above: Performed By: #### 2 32044 ####[facility],[address] [place] [address] Neut # 3.99 x10EE3/UL Normal 1.50 - 7.10 [facility] Comment on above: Performed By: #### 2 45044 ####[place] [address] Neutrophils/100 WBC (Bld) 59.3 % Normal 46.0 - 76.0 [facility] Comment on above: Performed By: #### 2 85395 ####[facility],[address] [place] [address] PLATELET 303 x10EE3/UL Normal 150 - 450 [facility] Comment on above: Performed By: #### 2 55347 ####[place] [address] Platelet mean volume (Bld) [Entitic vol] 7.6 fL Normal 6.6 - 10.5 [facility] Comment on above: Result Comment: AUTO MATED DIFFERENTIAL Performed By: #### 2 47816 ####[facility],[address] [place] [address] 34005 RBC 3.54 x 10EE6/UL Low 4.10 - 5.30 [facility] Comment on above: Performed By: #### 2 44091 ####[facility],[address] [place] [address] 99606 WBC 6.7 x 10EE3/UL Normal 4.5 - 10.8 [facility] Comment on above: Performed By: #### 2 59696 ####[facility],[address] [place] [address] 56477 CMP with eGFR - DAILYon 12-3 AGE 69 years Normal [facility] Comment on above: Performed By: #### 2 56895 ####[facility],[address] [place] [address] 06186 Albumin [Mass/Vol] 2.5 g/dL Low 3.4 - 5.0 [facility] Comment on above: Performed By: #### 2 88212 ####[facility],[address] [place] [address] 20114 Albumin/Globulin [Mass ratio] 0.7 {ratio} Low 0.9 - 1.6 [facility] Comment on above: Performed By: #### 2 34809 ####[facility],[address] [place] [address] 19474 ALK PHOS 103 U/L Normal 46 - 116 [facility] Comment on above: Performed By: #### 2 99059 ####[facility],[address] [place] [address] 58757 ALT [Catalytic activity/Vol] 58 U/L Normal 16 - 63 [facility] Comment on above: Performed By: #### 2 91119 ####[facility],[address] [place] [address] 14855 Anion gap [Moles/Vol] 13 mmol/L Normal 10 - 20 [facility] Comment on above: Performed By: #### 2 24885 ####[facility],[address] [place] [address] 87355 AST [Catalytic activity/Vol] 34 U/L Normal 13 - 39 [facility] Comment on above: Performed By: #### 2 93694 ####[facility],[address] [place] [address] 03742 B/C RATIO 18 ratio Normal 0 - 30 [facility] Comment on above: Performed By: #### 2 39665 ####[facility],[address] [place] [address] 54939 Bilirubin [Mass/Vol] 0.6 mg/dL Normal 0.2 - 1.0 [facility] Comment on above: Performed By: #### 2 45240 ####[facility],[address] [place] [address] 44952 Calcium [Mass/Vol] 8.6 mg/dL Normal 8.5 - 10.1 [facility] Comment on above: Performed By: #### 2 03474 ####[facility],[address] [place] [address] 93460 Chloride [Moles/Vol] 103 mmol/L Normal 98 - 107 [facility] Comment on above: Performed By: #### 2 73180 ####[facility],[address] [place] [address] 21448 CMP with eGFR - DAILY Normal [facility] Comment on above: Result Comment: COMP REHENSIVE METABOLIC PANEL Performed By: #### 2 13563 ####[facility],[address] [place] [address] 84243 CO2 [Moles/Vol] 27.4 mmol/L Normal 21.0 - 32.0 [facility] Comment on above: Performed By: #### 2 08898 ####[facility],[address] [place] [address] 17605 Creatinine [Mass/Vol] 0.84 mg/dL Normal 0.55 - 1.02 [facility] Comment on above: Performed By: #### 2 22802 ####[facility],[address] [place] [address] 75244 GFR/1.73 sq M.predicted among non-blacks MDRD (S/P/Bld) [Vol rate/Area] mL/min/{1.73_m2} Normal 60 - 999 [facility] Comment on above: Performed By: #### 2 88553 ####[facility],[address] [place] [address] Result Comment: ACCO RDING TO THE NATIONAL KIDNEY DISEASE EDUCATION PROGRAM(NKDE), A NORMAL eGFRIS A VALUE GREATER THAN OR EQUAL TO 60 ML/MIN/1.73 SQ METERS.CHRONIC KIDNEY DISEASE: <60mL/MIN/1.73 SQ METERSKIDNEY FAILURE: <15mL/MIN/1.73 SQ METERS Globulin (S) [Mass/Vol] 3.4 g/dL Normal 1.5 - 3.8 [facility] Comment on above: Performed By: #### 2 69484 ####[place] [id number] Glucose [Mass/Vol] 93 mg/dL Normal 74 - 106 [facility] Comment on above: Performed By: #### 2 05257 ####[address] [address] Potassium [Moles/Vol] 2.9 mmol/L Critically low 3.5 - 5.1 [facility] Comment on above: Result Comment: { CA LLED TO MED SURG AT 0738{ READ BACK BY [place] TO CWB Performed By: #### 2 77701 ####[facility],[address] [place] [address] 28786 Protein [Mass/Vol] 5.9 g/dL Low 6.4 - 8.2 [facility] Comment on above: Performed By: #### 2 05025 ####[address] [address] Sodium [Moles/Vol] 140 mmol/L Normal 136 - 145 [facility] Comment on above: Performed By: #### 2 55914 ####[facility],[address] [place] [address] Urea nitrogen [Mass/Vol] 15 mg/dL Normal 7 - 18 [facility] Comment on above: Performed By: #### 2 76354 ####[facility],[address] [place] [address] CV ECHO COMPLETEon CV ECHO COMPLETE Normal [facility] CBC + DIFFon 10-21-2024 Baso # 0.02 x10EE3/UL Normal 0.00 - 0.10 [facility] Comment on above: Performed By: #### 2 92863 ####[facility],[address] [place] [address] Basophils/100 WBC (Bld) 0.3 % Normal 0.0 - 2.0 [facility] Comment on above: Performed By: #### 2 12617 ####[facility],[address] [place] [address] CBC + DIFF Normal [facility] Comment on above: Result Comment: CBC- COMPLETE BLOOD COUNT Performed By: #### 2 05523 ####[facility],[address] [place] [address] EO # 0.09 x10EE3/UL Normal 0.00 - 0.50 [facility] Comment on above: Performed By: #### 2 33284 ####[facility],[address] [place] [address] Eosinophils/100 WBC (Bld) 1.3 % Normal 0.0 - 7.0 [facility] Comment on above: Performed By: #### 2 66346 ####[facility],[address] [place] [address] Erythrocyte distribution width (RBC) [Ratio] 14.3 % Normal 12.0 - 15.6 [facility] Comment on above: Performed By: #### 2 48202 ####[facility],[address] [place] [address] Hematocrit (Bld) [Volume fraction] 32.6 % Low 34.0 - 46.0 [facility] Comment on above: Performed By: #### 2 40147 ####[facility],[address] [place] [address] 19230 Hemoglobin (Bld) [Mass/Vol] 10.9 g/dL Low 12.0 - 16.0 [facility] Comment on above: Performed By: #### 2 75086 ####[facility],[address] [place] [address] Lymph # 1.38 x10EE3/UL Normal 0.80 - 2.80 [facility] Comment on above: Performed By: #### 2 26289 ####[facility],[address] [place], [place] [id number] Lymphocytes/100 WBC (Bld) 19.4 % Low 20.0 - 45.0 [facility] Comment on above: Performed By: #### 2 92310 ####[facility],[address] [place] [address] 33065 MANUAL DIFF N/A Normal [facility] Comment on above: Performed By: #### 2 96965 ####[facility],[address] [place] [address] 19440 MCH (RBC) [Entitic mass] 31 pg Normal 27 - 33 [facility] Comment on above: Performed By: #### 2 05764 ####[facility],[address] [place] [address] 45213 MCHC 34 X10 3 Normal 32 - 36 [facility] Comment on above: Performed By: #### 2 77417 ####[facility],[address] [place] [address] 22329 MCV (RBC) [Entitic vol] 92 fL Normal 80 - 99 [facility] Comment on above: Performed By: #### 2 63392 ####[facility],[address] [place] [address] 24039 [place] # 0.76 x10EE3/UL Normal 0.20 - 1.00 [facility] Comment on above: Performed By: #### 2 28176 ####[facility],[address] [place] [address] 65875 MONOS % 10.7 % High 0.0 - 10.0 [facility] Comment on above: Performed By: #### 2 87847 ####[facility],[address] [place] [address] 69160 Morphology Dandy (Bld) [Interp] N/A Normal [facility] Comment on above: Performed By: #### 2 27612 ####[facility],[address] [place] [address] 54607 Neut # 4.87 x10EE3/UL Normal 1.50 - 7.10 [facility] Comment on above: Performed By: #### 2 50444 ####[facility],[address] [place] [address] 17577 Neutrophils/100 WBC (Bld) 68.4 % Normal 46.0 - 76.0 [facility] Comment on above: Performed By: #### 2 96900 ####[facility],[address] [place] [address] 29028 PLATELET 301 x10EE3/UL Normal 150 - 450 [facility] Comment on above: Performed By: #### 2 44572 ####[facility],[address] [place] [address] 70567 Platelet mean volume (Bld) [Entitic vol] 7.2 fL Normal 6.6 - 10.5 [facility] Comment on above: Result Comment: AUTO MATED DIFFERENTIAL Performed By: #### 2 14760 ####[facility],[address] [place] [address] 80769 RBC 3.56 x 10EE6/UL Low 4.10 - 5.30 [facility] Comment on above: Performed By: #### 2 34653 ####[facility],[address] [place] [address] 32300 WBC 7.1 x 10EE3/UL Normal 4.5 - 10.8 [facility] Comment on above: Performed By: #### 2 28981 ####[facility],[address] [place], [place] [id number] CHEST 1 VIEWon 10-21-2024 CHEST [address] [facility] CMP with eGFRon 10-21-2024 AGE 69 years Normal [facility] Comment on above: Performed By: #### 2 24813 ####[facility],[address] [place], [place] [id number] Albumin [Mass/Vol] 2.7 g/dL Low 3.4 - 5.0 [facility] Comment on above: Performed By: #### 2 35472 ####[facility],[address] [place], [place] [id number] Albumin/Globulin [Mass ratio] 0.8 {ratio} Low 0.9 - 1.6 [facility] Comment on above: Performed By: #### 2 74295 ####[facility],[address] [place], [place] [id number] ALK PHOS 111 U/L Normal 46 - 116 [facility] Comment on above: Performed By: #### 2 42498 ####[facility],[address] [place] [address] 72762 ALT [Catalytic activity/Vol] 65 U/L High 16 - 63 [facility] Comment on above: Performed By: #### 2 21426 ####[facility],[address] [place] [address] 99950 Anion gap [Moles/Vol] 14 mmol/L Normal 10 - 20 [facility] Comment on above: Performed By: #### 2 32544 ####[facility],[address] [place] [address] 06989 AST [Catalytic activity/Vol] 38 U/L Normal 13 - 39 [facility] Comment on above: Performed By: #### 2 72730 ####[facility],[address] [place] [address] 50720 B/C RATIO 15 ratio Normal 0 - 30 [facility] Comment on above: Performed By: #### 2 52542 ####[facility],[address] [place] [address] 29677 Bilirubin [Mass/Vol] 0.7 mg/dL Normal 0.2 - 1.0 [facility] Comment on above: Performed By: #### 2 71047 ####[facility],[address] [place] [address] 06468 Calcium [Mass/Vol] 8.5 mg/dL Normal 8.5 - 10.1 [facility] Comment on above: Performed By: #### 2 25181 ####[facility],[address] [place], [place] [id number] Chloride [Moles/Vol] 104 mmol/L Normal 98 - 107 [facility] Comment on above: Performed By: #### 2 14125 ####[facility],[address] [place] [address] CMP with eGFR Normal [facility] Comment on above: Result Comment: COMP REHENSIVE METABOLIC PANEL Performed By: #### 2 47991 ####[facility],[address] [place] [address] 75958 CO2 [Moles/Vol] 27.0 mmol/L Normal 21.0 - 32.0 [facility] Comment on above: Performed By: #### 2 95399 ####[facility],[address] [place] [address] 72843 Creatinine [Mass/Vol] 0.78 mg/dL Normal 0.55 - 1.02 [facility] Comment on above: Performed By: #### 2 75037 ####[facility],[address] [place] [address] 77444 GFR/1.73 sq M.predicted among non-blacks MDRD (S/P/Bld) [Vol rate/Area] mL/min/{1.73_m2} Normal 60 - 999 [facility] Comment on above: Performed By: #### 2 47617 ####[facility],[address] [place] [address] Result Comment: ACCO RDING TO THE NATIONAL KIDNEY DISEASE EDUCATION PROGRAM(NKDE), A NORMAL eGFRIS A VALUE GREATER THAN OR EQUAL TO 60 ML/MIN/1.73 SQ METERS.CHRONIC KIDNEY DISEASE: <60mL/MIN/1.73 SQ METERSKIDNEY FAILURE: <15mL/MIN/1.73 SQ METERSTHIS TEST SHOULD ONLY BE USED FOR PATIENTS 18 YEARS OF AGE AND OLDER. Globulin (S) [Mass/Vol] 3.5 g/dL Normal 1.5 - 3.8 [facility] Comment on above: Performed By: #### 2 38455 ####[facility],[address] [place] [address] 85206 Glucose [Mass/Vol] 92 mg/dL Normal 74 - 106 [facility] Comment on above: Performed By: #### 2 84947 ####[facility],[address] [place] [address] 61026 Potassium [Moles/Vol] 3.5 mmol/L Normal 3.5 - 5.1 [facility] Comment on above: Performed By: #### 2 37264 ####[facility],[address] [place] [address] 55846 Protein [Mass/Vol] 6.2 g/dL Low 6.4 - 8.2 [facility] Comment on above: Performed By: #### 2 08831 ####[facility],[address] [place] [address] 18058 Sodium [Moles/Vol] 141 mmol/L Normal 136 - 145 [facility] Comment on above: Performed By: #### 2 07094 ####[facility],[address] [place] [address] Urea nitrogen [Mass/Vol] 12 mg/dL Normal 7 - 18 [facility] Comment on above: Performed By: #### 2 97982 ####[facility],[address] [place] [address] CORONAVIRUS (SARS) ANTIGEN T ESTon 10-21-2024 EXTERNAL QC DONE? YES Normal [facility] Comment on above: Performed By: #### 2 80242 ####[facility],[address] [place] [address] INTERNAL CONTROL PASS Normal [facility] Comment on above: Performed By: #### 2 39619 ####[facility],[address] [place] [address] SARS ANTIGEN Negative Normal NORMAL: NEGATIVE [facility] Comment on above: Performed By: #### 2 87532 ####[facility],[address] [place] [address] SEND TO ? NO Normal [facility] Comment on above: Result Comment: SARS -CoV-2THIS TEST IS BEING USED UNDER THE FDA EUA PROCEDURE. THIS ASSAY HAS BEENVALIDATED AT [facility] FOR USE WITH NASAL AND NASOPHARYNGEAL SWABSPECIMENS.INTERPRETIVE [...] BECONSIDERED BY HEALTHCARE PROVIDERS IN CONSULTATION WITH [facility]. Performed By: #### 2 19200 ####[facility],[address] [place], [place] [id number] ED MED ADMINISTRATION DETAIL on 10-21-2024 ED MED ADMINISTRATION DETAIL Normal [facility] ED NURSES CLINICAL NOTEon ED NURSES CLINICAL NOTE Normal [facility] ED ORDER SHEET (CPOE ONLY)on 10-21-2024 ED ORDER SHEET (CPOE ONLY) Normal [facility] ED PHYSICIAN CLINICAL REPORT on 10-21-2024 ED PHYSICIAN CLINICAL REPORT Normal [facility] ED PHYSICIAN DISCHARGE REPOR Ton 10-21-2024 ED PHYSICIAN DISCHARGE REPORT Normal [facility] ED SUPER BILLon 10-21-2024 ED SUPER BILL Normal [facility] ED VISIT SUMMARYon ED VISIT SUMMARY Normal [facility] ED VITALS FLOW SHEETon 10-21 ED VITALS FLOW SHEET Normal [facility] INFLUENZA VIRUS RAPID A/Bon 10-21-2024 INFLUENZA VIRUS RAPID A/B Normal [facility] Comment on above: Performed By: #### 2 18027 ####[facility],[address] [place], [place] [id number] NT-proBNPon 10-21-2024 Natriuretic peptide B (Bld) [Mass/Vol] 3719 pg/mL High 0 - 125 [facility] Comment on above: Performed By: #### 2 55252 ####[facility],[address] [place] [address] TROPONINon 10-21-2024 HS TROPONIN 20.1 pg/mL Normal 0.0 - 51.4 [facility] Comment on above: Performed By: #### 2 84182 ####[facility],[address] [place] [address] ED MED ADMINISTRATION DETAIL on 10-10-2024 ED MED ADMINISTRATION DETAIL Normal [facility] ED NURSES CLINICAL NOTEon ED NURSES CLINICAL NOTE Normal [facility] ED ORDER SHEET (CPOE ONLY)on 10-10-2024 ED ORDER SHEET (CPOE ONLY) Normal [facility] ED PHYSICIAN CLINICAL REPORT on 10-10-2024 ED PHYSICIAN CLINICAL REPORT Normal [facility] ED PHYSICIAN DISCHARGE REPOR Ton 10-10-2024 ED PHYSICIAN DISCHARGE REPORT Normal [facility] ED SUPER BILLon 10-10-2024 ED SUPER BILL Normal [facility] ED VISIT SUMMARYon ED VISIT SUMMARY Normal [facility] ED VITALS FLOW SHEETon 10-10 ED VITALS FLOW SHEET Normal [facility] CT BRAIN W/O CONTRASTon 09-22 CT BRAIN W/O CONTRAST Normal [facility] CT CERVICAL W/O CONTRASTon 12-10-2023 CT CERVICAL W/O CONTRAST Normal [facility] CT FACIAL BONES W/O CONTRAST on 10-09-2024 CT FACIAL BONES W/O CONTRAST Normal [facility] BMP with eGFRon 10-06-2024 AGE 69 years Normal [facility] Comment on above: Performed By: #### 2 69977 ####[facility],[address] [place] [address] Anion gap [Moles/Vol] 13 mmol/L Normal 10 - 20 [facility] Comment on above: Performed By: #### 2 44641 ####[facility],[address] [place] [address] 97130 BMP with eGFR Normal [facility] Comment on above: Result Comment: BASI C METABOLIC PANEL Performed By: #### 2 65322 ####[facility] [facility],[address] [place] [address] 09169 Calcium [Mass/Vol] 8.5 mg/dL Normal 8.5 - 10.1 [facility] Comment on above: Performed By: #### 2 78292 ####[facility],[address] [place] [address] 46205 Chloride [Moles/Vol] 101 mmol/L Normal 98 - 107 [facility] Comment on above: Performed By: #### 2 76538 ####[facility],[address] [place] [address] 62323 CO2 [Moles/Vol] 27.0 mmol/L Normal 21.0 - 32.0 [facility] Comment on above: Performed By: #### 2 35146 ####[facility],[address] [place] [address] 90576 Creatinine [Mass/Vol] 1.11 mg/dL High 0.55 - 1.02 [facility] Comment on above: Performed By: #### 2 03621 ####[facility],[address] [place] [address] 18900 eGFR 49 ML/MINUTE Low 60 - 999 [facility] Comment on above: Performed By: #### 2 13976 ####[facility],[address] [place] [address] 81505 eGFR(AA) 59 ML/MINUTE Low 60 - 999 [facility] Comment on above: Result Comment: ACCO RDING TO THE NATIONAL KIDNEY DISEASE EDUCATION PROGRAM(NKDE), A NORMAL eGFRIS A VALUE GREATER THAN OR EQUAL TO 60 ML/MIN/1.73 SQ METERS.CHRONIC KIDNEY DISEASE: <60mL/MIN/1.73 SQ METERSKIDNEY FAILURE: <15mL/MIN/1.73 SQ METERSTHIS TEST SHOULD ONLY BE USED FOR PATIENTS 18 YEARS OF AGE AND OLDER. Performed By: #### 2 74424 ####[facility],[address] [place] [address] 87939 Glucose [Mass/Vol] 197 mg/dL High 74 - 106 [facility] Comment on above: Performed By: #### 2 04349 ####[facility],[address] [place] [address] 01346 Potassium [Moles/Vol] 3.7 mmol/L Normal 3.5 - 5.1 [facility] Comment on above: Performed By: #### 2 42586 ####[facility],[address] [place] [address] 62621 Sodium [Moles/Vol] 137 mmol/L Normal 136 - 145 [facility] Comment on above: Performed By: #### 2 84041 ####[address] [address] Urea nitrogen [Mass/Vol] 39 mg/dL High 7 - 18 [facility] Comment on above: Performed By: #### 2 02027 ####[facility],[address] [place] [address] 28492 C-REACTIVE PROTEINon 024 CRP [Mass/Vol] mg/L Normal 0.00 - 0.90 [facility] Comment on above: Performed By: #### 2 39929 ####[address] [address] CBC + DIFFon 10-05-2024 Baso # 0.02 x10EE3/UL Normal 0.00 - 0.10 [facility] Comment on above: Performed By: #### 2 06554 ####[address] [address]478 Basophils/100 WBC (Bld) 0.2 % Normal 0.0 - 2.0 [facility] Comment on above: Performed By: #### 2 99713 ####[facility],[address] [place] [address] CBC + DIFF Normal [facility] Comment on above: Result Comment: CBC- COMPLETE BLOOD COUNT Performed By: #### 2 80759 ####[facility],[address] [place] [address] EO # 0.04 x10EE3/UL Normal 0.00 - 0.50 [facility] Comment on above: Performed By: #### 2 33848 ####[facility],[address] [place] [address] Eosinophils/100 WBC (Bld) 0.3 % Normal 0.0 - 7.0 [facility] Comment on above: Performed By: #### 2 36369 ####[facility],[address] [place] [address] Erythrocyte distribution width (RBC) [Ratio] 14.3 % Normal 12.0 - 15.6 [facility] Comment on above: Performed By: #### 2 23790 ####[facility],[address] [place] [address] Hematocrit (Bld) [Volume fraction] 37.0 % Normal 34.0 - 46.0 [facility] Comment on above: Performed By: #### 2 03108 ####[facility],[address] [place] [address] Hemoglobin (Bld) [Mass/Vol] 12.0 g/dL Normal 12.0 - 16.0 [facility] Comment on above: Performed By: #### 2 86434 ####[facility],[address] [place], [place] [id number] Lymph # 0.94 x10EE3/UL Normal 0.80 - 2.80 [facility] Comment on above: Performed By: #### 2 35048 ####[facility],[address] [place], [place] [id number] Lymphocytes/100 WBC (Bld) 8.5 % Low 20.0 - 45.0 [facility] Comment on above: Performed By: #### 2 71777 ####[facility],[address] [place] [address] MANUAL DIFF N/A Normal [facility] Comment on above: Performed By: #### 2 50663 ####[facility],[address] [place] [address] MCH (RBC) [Entitic mass] 30 pg Normal 27 - 33 [facility] Comment on above: Performed By: #### 2 64168 ####[facility],[address] [place] [address] MCHC 33 X10 3 Normal 32 - 36 [facility] Comment on above: Performed By: #### 2 71627 ####[facility],[address] [place] [address] MCV (RBC) [Entitic vol] 92 fL Normal 80 - 99 [facility] Comment on above: Performed By: #### 2 01472 ####[facility],[address] [place] [address] [place] # 0.33 x10EE3/UL Normal 0.20 - 1.00 [facility] Comment on above: Performed By: #### 2 45209 ####[facility],[address] [place] [address] MONOS % 3.0 % Normal 0.0 - 10.0 [facility] Comment on above: Performed By: #### 2 90585 ####[facility],[address] [place] [address] Morphology Dandy (Bld) [Interp] N/A Normal [facility] Comment on above: Performed By: #### 2 39969 ####[facility],[address] [place] [address] Neut # 9.76 x10EE3/UL High 1.50 - 7.10 [facility] Comment on above: Performed By: #### 2 50465 ####[facility],[address] [place] [address] 72550 Neutrophils/100 WBC (Bld) 88.0 % High 46.0 - 76.0 [facility] Comment on above: Performed By: #### 2 37631 ####[facility],[address] [place] [address] 45195 PLATELET 402 x10EE3/UL Normal 150 - 450 [facility] Comment on above: Performed By: #### 2 27892 ####[facility],[address] [place] [address] 43305 Platelet mean volume (Bld) [Entitic vol] 7.2 fL Normal 6.6 - 10.5 [facility] Comment on above: Result Comment: AUTO MATED DIFFERENTIAL Performed By: #### 2 73409 ####[facility],[address] [place] [address] 16582 RBC 4.00 x 10EE6/UL Low 4.10 - 5.30 [facility] Comment on above: Performed By: #### 2 79359 ####[facility],[address] [place] [address] 57539 WBC 11.1 x 10EE3/UL High 4.5 - 10.8 [facility] Comment on above: Performed By: #### 2 93542 ####[facility],[address] [place] [address] 63867 CHEST 1 VIEWon 10-05-2024 CHEST [address] [facility] CMP with eGFRon 10-05-2024 AGE 69 years Normal [facility] Comment on above: Performed By: #### 2 43463 ####[facility],[address] [place] [address] 96799 Albumin [Mass/Vol] 2.4 g/dL Low 3.4 - 5.0 [facility] Comment on above: Performed By: #### 2 43742 ####[facility],[address] [place] [address] 64359 Albumin/Globulin [Mass ratio] 0.7 {ratio} Low 0.9 - 1.6 [facility] Comment on above: Performed By: #### 2 01316 ####[facility],[address] [place] [address] 95917 ALK PHOS 80 U/L Normal 46 - 116 [facility] Comment on above: Performed By: #### 2 94438 ####[facility],[address] [place] [address] 72240 ALT [Catalytic activity/Vol] 44 U/L Normal 16 - 63 [facility] Comment on above: Performed By: #### 2 12072 ####[facility],[address] [place] [address] 84034 Anion gap [Moles/Vol] 10 mmol/L Normal 10 - 20 [facility] Comment on above: Performed By: #### 2 18384 ####[facility],[address] [place] [address] 68860 AST [Catalytic activity/Vol] 38 U/L Normal 13 - 39 [facility] Comment on above: Performed By: #### 2 73811 ####[facility],[address] [place] [address] 31513 B/C RATIO 29 ratio Normal 0 - 30 [facility] Comment on above: Performed By: #### 2 43187 ####[facility],[address] [place] [address] 34443 Bilirubin [Mass/Vol] 0.3 mg/dL Normal 0.2 - 1.0 [facility] Comment on above: Performed By: #### 2 06246 ####[facility],[address] [place] [address] 59886 Calcium [Mass/Vol] 8.4 mg/dL Low 8.5 - 10.1 [facility] Comment on above: Performed By: #### 2 29150 ####[facility],[address] [place] [address] 28127 Chloride [Moles/Vol] 102 mmol/L Normal 98 - 107 [facility] Comment on above: Performed By: #### 2 94976 ####[facility],[address] [place] [address] 08992 CMP with eGFR Normal [facility] Comment on above: Result Comment: COMP REHENSIVE METABOLIC PANEL Performed By: #### 2 80154 ####[facility],[address] [place], [place] [id number] CO2 [Moles/Vol] 29.0 mmol/L Normal 21.0 - 32.0 [facility] Comment on above: Performed By: #### 2 77569 ####[facility],[address] [place] [address] Creatinine [Mass/Vol] 1.22 mg/dL High 0.55 - 1.02 [facility] Comment on above: Performed By: #### 2 71356 ####[facility],[address] [place], [place] [id number] eGFR 44 ML/MINUTE Low 60 - 999 [facility] Comment on above: Performed By: #### 2 35022 ####[facility],[address] [place], [place] [id number] eGFR(AA) 53 ML/MINUTE Low 60 - 999 [facility] Comment on above: Result Comment: ACCO RDING TO THE NATIONAL KIDNEY DISEASE EDUCATION PROGRAM(NKDE), A NORMAL eGFRIS A VALUE GREATER THAN OR EQUAL TO 60 ML/MIN/1.73 SQ METERS.CHRONIC KIDNEY DISEASE: <60mL/MIN/1.73 SQ METERSKIDNEY FAILURE: <15mL/MIN/1.73 SQ METERSTHIS TEST SHOULD ONLY BE USED FOR PATIENTS 18 YEARS OF AGE AND OLDER. Performed By: #### 2 68581 ####[facility],[address] [place], [place] [id number] Globulin (S) [Mass/Vol] 3.5 g/dL Normal 1.5 - 3.8 [facility] Comment on above: Performed By: #### 2 47273 ####[facility],[address] [place] [address] 16753 Glucose [Mass/Vol] 154 mg/dL High 74 - 106 [facility] Comment on above: Performed By: #### 2 86626 ####[facility],[address] [place] [address] 51703 Potassium [Moles/Vol] 3.7 mmol/L Normal 3.5 - 5.1 [facility] Comment on above: Performed By: #### 2 15110 ####[facility],[address] [place] [address] 30697 Protein [Mass/Vol] 5.9 g/dL Low 6.4 - 8.2 [facility] Comment on above: Performed By: #### 2 21273 ####[facility],[address] [place] [address] 13348 Sodium [Moles/Vol] 137 mmol/L Normal 136 - 145 [facility] Comment on above: Performed By: #### 2 11175 ####[facility],[address] [place] [address] 83532 Urea nitrogen [Mass/Vol] 35 mg/dL High 7 - 18 [facility] Comment on above: Performed By: #### 2 04310 ####[facility],[address] [place] [address] 63352 BMP with eGFRon 10-04-2024 AGE 69 years Normal [facility] Comment on above: Performed By: #### 2 61885 ####[facility],[address] [place] [address] 71295 Anion gap [Moles/Vol] 9 mmol/L Low 10 - 20 [facility] Comment on above: Performed By: #### 2 66037 ####[facility],[address] [place] [address] 77532 BMP with eGFR Normal [facility] Comment on above: Result Comment: BASI C METABOLIC PANEL Performed By: #### 2 96866 ####[facility],[address] [place] [address] 40356 Calcium [Mass/Vol] 8.3 mg/dL Low 8.5 - 10.1 [facility] Comment on above: Performed By: #### 2 94840 ####[facility],[address] [place] [address] 64121 Chloride [Moles/Vol] 99 mmol/L Normal 98 - 107 [facility] Comment on above: Performed By: #### 2 45093 ####[facility],[address] [place] [address] 35796 CO2 [Moles/Vol] 32.2 mmol/L High 21.0 - 32.0 [facility] Comment on above: Performed By: #### 2 37626 ####[facility],[address] [place] [address] 97241 Creatinine [Mass/Vol] 0.97 mg/dL Normal 0.55 - 1.02 [facility] Comment on above: Performed By: #### 2 45658 ####[facility],[address] [place] [address] 08617 eGFR 57 ML/MINUTE Low 60 - 999 [facility] Comment on above: Performed By: #### 2 18187 ####[facility],[address] [place] [address] 40588 GFR/1.73 sq M.predicted among non-blacks MDRD (S/P/Bld) [Vol rate/Area] mL/min/{1.73_m2} Normal 60 - 999 [facility] Comment on above: Result Comment: ACCO RDING TO THE NATIONAL KIDNEY DISEASE EDUCATION PROGRAM(NKDE), A NORMAL eGFRIS A VALUE GREATER THAN OR EQUAL TO 60 ML/MIN/1.73 SQ METERS.CHRONIC KIDNEY DISEASE: <60mL/MIN/1.73 SQ METERSKIDNEY FAILURE: <15mL/MIN/1.73 SQ METERSTHIS TEST SHOULD ONLY BE USED FOR PATIENTS 18 YEARS OF AGE AND OLDER. Performed By: #### 2 02268 ####[facility],[address] [place] [address] 86038 Glucose [Mass/Vol] 159 mg/dL High 74 - 106 [facility] Comment on above: Performed By: #### 2 68276 ####[facility],[address] [place] [address] 31326 Potassium [Moles/Vol] 3.0 mmol/L Low 3.5 - 5.1 [facility] Comment on above: Performed By: #### 2 91236 ####[facility],[address] [place] [address] 61216 Sodium [Moles/Vol] 137 mmol/L Normal 136 - 145 [facility] Comment on above: Performed By: #### 2 08918 ####[address] [address] Urea nitrogen [Mass/Vol] 21 mg/dL High 7 - 18 [facility] Comment on above: Performed By: #### 2 67532 ####[facility],[address] [place] [address] 54705 CBC + DIFFon 10-04-2024 Baso # 0.03 x10EE3/UL Normal 0.00 - 0.10 [facility] Comment on above: Performed By: #### 2 70780 ####[facility],[address] [place] [address] 30981 Basophils/100 WBC (Bld) 0.3 % Normal 0.0 - 2.0 [facility] Comment on above: Performed By: #### 2 52305 ####[facility],[address] [place] [address] 38811 CBC + DIFF Normal [facility] Comment on above: Result Comment: CBC- COMPLETE BLOOD COUNT Performed By: #### 2 90735 ####[facility],[address] [place] [address] 09370 EO # 0.04 x10EE3/UL Normal 0.00 - 0.50 [facility] Comment on above: Performed By: #### 2 61835 ####[facility],[address] [place] [address] 00810 Eosinophils/100 WBC (Bld) 0.3 % Normal 0.0 - 7.0 [facility] Comment on above: Performed By: #### 2 80870 ####[facility],[address] [place] [address] Erythrocyte distribution width (RBC) [Ratio] 14.2 % Normal 12.0 - 15.6 [facility] Comment on above: Performed By: #### 2 90566 ####[facility],[address] [place] [address] Hematocrit (Bld) [Volume fraction] 36.6 % Normal 34.0 - 46.0 [facility] Comment on above: Performed By: #### 2 18813 ####[facility],[address] [place] [address] Hemoglobin (Bld) [Mass/Vol] 12.1 g/dL Normal 12.0 - 16.0 [facility] Comment on above: Performed By: #### 2 93019 ####[facility],[address] [place] [address] 62268 Lymph # 0.61 x10EE3/UL Low 0.80 - 2.80 [facility] Comment on above: Performed By: #### 2 75072 ####[facility],[address] [place], [place] [id number] Lymphocytes/100 WBC (Bld) 4.9 % Low 20.0 - 45.0 [facility] Comment on above: Performed By: #### 2 77465 ####[facility],[address] [place], [place] [id number] MANUAL DIFF N/A Normal [facility] Comment on above: Performed By: #### 2 09564 ####[facility],[address] [place] [address] MCH (RBC) [Entitic mass] 31 pg Normal 27 - 33 [facility] Comment on above: Performed By: #### 2 72381 ####[facility],[address] [place] [address] MCHC 33 X10 3 Normal 32 - 36 [facility] Comment on above: Performed By: #### 2 30752 ####[facility],[address] [place] [address] MCV (RBC) [Entitic vol] 92 fL Normal 80 - 99 [facility] Comment on above: Performed By: #### 2 82304 ####[facility],[address] [place] [address] [place] # 0.19 x10EE3/UL Low 0.20 - 1.00 [facility] Comment on above: Performed By: #### 2 27851 ####[facility],[address] [place] [address] MONOS % 1.5 % Normal 0.0 - 10.0 [facility] Comment on above: Performed By: #### 2 62029 ####[facility],[address] [place] [address] Morphology Dandy (Bld) [Interp] N/A Normal [facility] Comment on above: Performed By: #### 2 40875 ####[facility],[address] [place] [address] Neut # 11.58 x10EE3/UL High 1.50 - 7.10 [facility] Comment on above: Performed By: #### 2 22955 ####[facility],[address] [place] [address] Neutrophils/100 WBC (Bld) 93.0 % High 46.0 - 76.0 [facility] Comment on above: Performed By: #### 2 88133 ####[facility],[address] [place] [address] 38707 PLATELET 379 x10EE3/UL Normal 150 - 450 [facility] Comment on above: Performed By: #### 2 09101 ####[facility],[address] [place] [address] 92995 Platelet mean volume (Bld) [Entitic vol] 7.0 fL Normal 6.6 - 10.5 [facility] Comment on above: Result Comment: AUTO MATED DIFFERENTIAL Performed By: #### 2 32672 ####[facility],[address] [place] [address] 06584 RBC 3.98 x 10EE6/UL Low 4.10 - 5.30 [facility] Comment on above: Performed By: #### 2 98539 ####[facility],[address] [place] [address] 93606 WBC 12.5 x 10EE3/UL High 4.5 - 10.8 [facility] Comment on above: Performed By: #### 2 28463 ####[facility],[address] [place] [address] 61987 ED MED ADMINISTRATION DETAIL on 10-04-2024 ED MED ADMINISTRATION DETAIL Normal [facility] ED NURSES CLINICAL NOTEon ED NURSES CLINICAL NOTE Normal [facility] ED ORDER SHEET (CPOE ONLY)on 10-04-2024 ED ORDER SHEET (CPOE ONLY) Normal [facility] ED PHYSICIAN CLINICAL REPORT on 10-04-2024 ED PHYSICIAN CLINICAL REPORT Normal [facility] ED PHYSICIAN DISCHARGE REPOR Ton 10-04-2024 ED PHYSICIAN DISCHARGE REPORT Normal [facility] ED SUPER BILLon 10-04-2024 ED SUPER BILL Normal [facility] ED VISIT SUMMARYon ED VISIT SUMMARY Normal [facility] ED VITALS FLOW SHEETon 10-04 ED VITALS FLOW SHEET Normal [facility] CBC + DIFFon 10-03-2024 Baso # 0.06 x10EE3/UL Normal 0.00 - 0.10 [facility] Comment on above: Performed By: #### 2 16442 ####[facility],[address] [place] [address] Basophils/100 WBC (Bld) 0.5 % Normal 0.0 - 2.0 [facility] Comment on above: Performed By: #### 2 66673 ####[facility],[address] [place] [address] CBC + DIFF Normal [facility] Comment on above: Result Comment: CBC- COMPLETE BLOOD COUNT Performed By: #### 2 01443 ####[place] [address] EO # 0.29 x10EE3/UL Normal 0.00 - 0.50 [facility] Comment on above: Performed By: #### 2 94045 ####[facility],[address] [place] [address] Eosinophils/100 WBC (Bld) 2.1 % Normal 0.0 - 7.0 [facility] Comment on above: Performed By: #### 2 05761 ####[place] [address] Erythrocyte distribution width (RBC) [Ratio] 14.1 % Normal 12.0 - 15.6 [facility] Comment on above: Performed By: #### 2 09879 ####[facility],[address] [place] [address] Hematocrit (Bld) [Volume fraction] 41.7 % Normal 34.0 - 46.0 [facility] Comment on above: Performed By: #### 2 22521 ####[facility],[address] [place] [address] Hemoglobin (Bld) [Mass/Vol] 13.8 g/dL Normal 12.0 - 16.0 [facility] Comment on above: Performed By: #### 2 70741 ####[facility],[address] [place] [address] Lymph # 5.71 x10EE3/UL High 0.80 - 2.80 [facility] Comment on above: Performed By: #### 2 33501 ####[facility],[address] [place] [address] Lymphocytes/100 WBC (Bld) 41.9 % Normal 20.0 - 45.0 [facility] Comment on above: Performed By: #### 2 31584 ####[facility],[address] [place] [address] MANUAL DIFF N/A Normal [facility] Comment on above: Performed By: #### 2 46074 ####[facility],[address] [place] [address] MCH (RBC) [Entitic mass] 30 pg Normal 27 - 33 [facility] Comment on above: Performed By: #### 2 53897 ####[facility],[address] [place] [address] MCHC 33 X10 3 Normal 32 - 36 [facility] Comment on above: Performed By: #### 2 78857 ####[facility],[address] [place] [address] MCV (RBC) [Entitic vol] 91 fL Normal 80 - 99 [facility] Comment on above: Performed By: #### 2 [id number] ####[facility],[address] [place] [address] [place] # 1.18 x10EE3/UL High 0.20 - 1.00 [facility] Comment on above: Performed By: #### 2 83933 ####[facility],[address] [place] [address] MONOS % 8.6 % Normal 0.0 - 10.0 [facility] Comment on above: Performed By: #### 2 97868 ####[facility],[address] [place] [address] Morphology Dandy (Bld) [Interp] N/A Normal [facility] Comment on above: Performed By: #### 2 30907 ####[facility],[address] [place] [address]390 Neut # 6.39 x10EE3/UL Normal 1.50 - 7.10 [facility] Comment on above: Performed By: #### 2 98877 ####[facility],[address] [place] [address] Neutrophils/100 WBC (Bld) 46.9 % Normal 46.0 - 76.0 [facility] Comment on above: Performed By: #### 2 02164 ####[facility],[address] [place] [address] PLATELET 475 x10EE3/UL High 150 - 450 [facility] Comment on above: Performed By: #### 2 07328 ####[facility],[address] [place] [address] Platelet mean volume (Bld) [Entitic vol] 7.4 fL Normal 6.6 - 10.5 [facility] Comment on above: Result Comment: AUTO MATED DIFFERENTIAL Performed By: #### 2 56304 ####[facility],[address] [place] [address] 05288 RBC 4.58 x 10EE6/UL Normal 4.10 - 5.30 [facility] Comment on above: Performed By: #### 2 32449 ####[facility],[address] [place] [address] 41830 WBC 13.6 x 10EE3/UL High 4.5 - 10.8 [facility] Comment on above: Performed By: #### 2 27816 ####[facility],[address] [place], [place] [id number] CHEST 1 VIEWon 10-03-2024 CHEST [address] [facility] CMP with eGFRon 10-03-2024 AGE 69 years Normal [facility] Comment on above: Performed By: #### 2 05002 ####[facility],[address] [place] [address] 41395 Albumin [Mass/Vol] 3.1 g/dL Low 3.4 - 5.0 [facility] Comment on above: Performed By: #### 2 49530 ####[facility],[address] [place] [address] 06783 Albumin/Globulin [Mass ratio] 0.7 {ratio} Low 0.9 - 1.6 [facility] Comment on above: Performed By: #### 2 78578 ####[facility],[address] [place] [address] 83085 ALK PHOS 124 U/L High 46 - 116 [facility] Comment on above: Performed By: #### 2 54987 ####[facility],[address] [place] [address] 59170 ALT [Catalytic activity/Vol] 90 U/L High 16 - 63 [facility] Comment on above: Performed By: #### 2 31866 ####[facility],[address] [place] [address] 08234 Anion gap [Moles/Vol] 13 mmol/L Normal 10 - 20 [facility] Comment on above: Performed By: #### 2 12600 ####[facility],[address] [place] [address] 53165 AST [Catalytic activity/Vol] 126 U/L High 13 - 39 [facility] Comment on above: Performed By: #### 2 06216 ####[facility],[address] [place] [address] 67248 B/C RATIO 15 ratio Normal 0 - 30 [facility] Comment on above: Performed By: #### 2 13155 ####[facility],[address] [place] [address] 08836 Bilirubin [Mass/Vol] 0.5 mg/dL Normal 0.2 - 1.0 [facility] Comment on above: Performed By: #### 2 07278 ####[facility],[address] [place] [address] 19997 Calcium [Mass/Vol] 8.6 mg/dL Normal 8.5 - 10.1 [facility] Comment on above: Performed By: #### 2 12987 ####[facility],[address] [place] [address] 40724 Chloride [Moles/Vol] 97 mmol/L Low 98 - 107 [facility] Comment on above: Performed By: #### 2 57675 ####[facility],[address] [place] [address] 16686 CMP with eGFR Normal [facility] Comment on above: Result Comment: COMP REHENSIVE METABOLIC PANEL Performed By: #### 2 32512 ####[facility],[address] [place] [address] 02434 CO2 [Moles/Vol] 30.3 mmol/L Normal 21.0 - 32.0 [facility] Comment on above: Performed By: #### 2 53178 ####[facility],[address] [place] [address] 59854 Creatinine [Mass/Vol] 1.33 mg/dL High 0.55 - 1.02 [facility] Comment on above: Performed By: #### 2 16553 ####[facility],[address] [place] [address] 17233 eGFR 39 ML/MINUTE Low 60 - 999 [facility] Comment on above: Performed By: #### 2 86790 ####[facility],[address] [place] [address] 39039 eGFR(AA) 48 ML/MINUTE Low 60 - 999 [facility] Comment on above: Result Comment: ACCO RDING TO THE NATIONAL KIDNEY DISEASE EDUCATION PROGRAM(NKDE), A NORMAL eGFRIS A VALUE GREATER THAN OR EQUAL TO 60 ML/MIN/1.73 SQ METERS.CHRONIC KIDNEY DISEASE: <60mL/MIN/1.73 SQ METERSKIDNEY FAILURE: <15mL/MIN/1.73 SQ METERSTHIS TEST SHOULD ONLY BE USED FOR PATIENTS 18 YEARS OF AGE AND OLDER. Performed By: #### 2 52657 ####[facility],[address] [place] [address] 37826 Globulin (S) [Mass/Vol] 4.7 g/dL High 1.5 - 3.8 [facility] Comment on above: Performed By: #### 2 23712 ####[facility],[address] [place] [address] 76550 Glucose [Mass/Vol] 271 mg/dL High 74 - 106 [facility] Comment on above: Performed By: #### 2 53935 ####[facility],[address] [place] [address] 44280 Potassium [Moles/Vol] 3.1 mmol/L Low 3.5 - 5.1 [facility] Comment on above: Performed By: #### 2 21671 ####[facility],[address] [place] [address] 34656 Protein [Mass/Vol] 7.8 g/dL Normal 6.4 - 8.2 [facility] Comment on above: Performed By: #### 2 43052 ####[facility],[address] [place] [address] 58878 Sodium [Moles/Vol] 137 mmol/L Normal 136 - 145 [facility] Comment on above: Performed By: #### 2 38548 ####[facility],[address] [place] [address] 17683 Urea nitrogen [Mass/Vol] 20 mg/dL High 7 - 18 [facility] Comment on above: Performed By: #### 2 53910 ####[facility],[address] [place] [address] 20966 MYCOon 09-08-2023 Mycoplasma IgG equiv Normal [facility] ([place]) Comment on above: Result Comment: INTE RPRETATION OF MYCOPLASMA IgG BY EIA: Negative: No detectable M. pneumoniae IgG antibody. Positive: Mycoplasma pneumoniae IgG antibody Detected. Equivocal: Equivocal for IgG antibodies to Mycoplasma pneumoniae. Suggest repeat testing in 10-14 days. Performed By: #### P HOS, TROPHS, MG, CBC, ADIFF, ANEU, MYCO, CMP, CAION, GFR ####[address] [address] .Auto Diffon 09-06-2023 Basophil, Absolute 0.1 10 3/mcL Normal 0.0-0.3 [facility] ([place]) Comment on above: Performed By: #### A DIFF, MG, ANEU, GFR, CBC, BMP ####[address] [address] Basophils/100 WBC (Bld) 1.5 % Normal 0.0-2.5 [facility] ([place]) Comment on above: Performed By: #### A DIFF, MG, ANEU, GFR, CBC, BMP ####[address] [address] Eosinophil, Absolute 0.4 10 3/mcL Normal 0.0-0.7 On license of [facility] ([place]) Comment on above: Performed By: #### A DIFF, MG, ANEU, GFR, CBC, BMP ####[place] [address] Eosinophils/100 WBC (Bld) 5.4 % Normal 0.0-6.0 [facility] ([place] Comment on above: Performed By: #### A DIFF, MG, ANEU, GFR, CBC, BMP ####[address] [address] Lymphocyte, Absolute 2.0 10 3/mcL Normal 0.9-4.3 On license of [facility] ([place]) Comment on above: Performed By: #### A DIFF, MG, ANEU, GFR, CBC, BMP ####[address] [address] Lymphocytes/100 WBC (Bld) 27.7 % Normal 20.0-40.0 [facility] ([place] Comment on above: Performed By: #### A DIFF, MG, ANEU, GFR, CBC, BMP ####[address] [address] Monocyte, Absolute 0.9 10 3/mcL Normal 0.1-1.4 [facility] ([place] Comment on above: Performed By: #### A DIFF, MG, ANEU, GFR, CBC, BMP ####[address] [address] Monocytes/100 WBC (Bld) 13.0 % Normal 2.0-13.0 [facility] ([place]) Comment on above: Performed By: #### A DIFF, MG, ANEU, GFR, CBC, BMP ####[address] [address] Neutrophils/100 WBC (Bld) 52.4 % Normal 50.0-75.0 [facility] ([place] Comment on above: Performed By: #### A DIFF, MG, ANEU, GFR, CBC, BMP ####[address] [address] .GFRon 09-06-2023 GFR Non- >60 Normal [facility] ([place] Comment on above: Result Comment: GFR Population [...] A DIFF, MG, ANEU, GFR, CBC, BMP ####[address] [address] GFR >60 Normal [facility] ([place] Comment on above: Result Comment: GFR Population [...] A DIFF, MG, ANEU, GFR, CBC, BMP ####[address] [address] .NEUABSon 09-06-2023 Neutrophil, Absolute 3.7 10 3/mcL Normal 2.3-8.1 On license of [facility] ([place]) Comment on above: Performed By: #### A DIFF, MG, ANEU, GFR, CBC, BMP ####[place] [address] BMPon 09-06-2023 BUN/Creatinine Ratio 22.5 ratio High 10.0-22.0 [facility] ([place] Comment on above: Performed By: #### A DIFF, MG, ANEU, GFR, CBC, BMP ####[place] [address] Calcium [Mass/Vol] 8.7 mg/dL Normal 8.7-10.4 [facility] ([place]) Comment on above: Performed By: #### A DIFF, MG, ANEU, GFR, CBC, BMP ####[address] [address] Chloride [Moles/Vol] 101 mmol/L Normal 98-110 [facility] ([place] Comment on above: Performed By: #### A DIFF, MG, ANEU, GFR, CBC, BMP ####[address] [address] CO2 [Moles/Vol] 33 mmol/L High 22-32 [facility] ([place] Comment on above: Performed By: #### A DIFF, MG, ANEU, GFR, CBC, BMP ####[address] [address] Creatinine [Mass/Vol] 0.89 mg/dL Normal 0.50-1.20 [facility] ([place]) Comment on above: Performed By: #### A DIFF, MG, ANEU, GFR, CBC, BMP ####[place] [address] Electrolyte Balance 3.0 mEq/L Low 4.0-15.0 [facility] ([place] Comment on above: Performed By: #### A DIFF, MG, ANEU, GFR, CBC, BMP ####[place] [address] Glucose [Mass/Vol] 100 mg/dL Normal 82-115 [facility] ([place] Comment on above: Performed By: #### A DIFF, MG, ANEU, GFR, CBC, BMP ####[place] [address] Potassium [Moles/Vol] 3.9 mmol/L Normal 3.5-5.0 [facility] ([place]) Comment on above: Performed By: #### A DIFF, MG, ANEU, GFR, CBC, BMP ####[place] [address] Sodium [Moles/Vol] 137 mmol/L Normal 136-145 [facility] ([place] Comment on above: Performed By: #### A DIFF, MG, ANEU, GFR, CBC, BMP ####[place] [address] Urea nitrogen [Mass/Vol] 20.0 mg/dL Normal 8.0-22.0 [facility] ([place] Comment on above: Performed By: #### A DIFF, MG, ANEU, GFR, CBC, BMP ####[place] [address] CBCon 09-06-2023 Erythrocyte distribution width (RBC) [Ratio] 13.7 % Normal 11.5-15.5 [facility] ([place] Comment on above: Performed By: #### A DIFF, MG, ANEU, GFR, CBC, BMP ####[place] [address] Hematocrit (Bld) [Volume fraction] 39.7 % Normal 34.0-46.0 [facility] ([place] Comment on above: Performed By: #### A DIFF, MG, ANEU, GFR, CBC, BMP ####[place] [address] Hgb 13.5 G/dL Normal 12.0-16.0 [facility] ([place] Comment on above: Performed By: #### A DIFF, MG, ANEU, GFR, CBC, BMP ####[place] [address] MCH (RBC) [Entitic mass] 30.9 pg Normal 27.0-33.0 [facility] ([place] Comment on above: Performed By: #### A DIFF, MG, ANEU, GFR, CBC, BMP ####[place] [address] MCHC 34.0 G/dL Normal 32.0-36.0 [facility] ([place] Comment on above: Performed By: #### A DIFF, MG, ANEU, GFR, CBC, BMP ####[place] [address] MCV (RBC) [Entitic vol] 90.9 fL Normal 80.0-99.0 [facility] ([place]) Comment on above: Performed By: #### A DIFF, MG, ANEU, GFR, CBC, BMP ####[place] [address] Platelet 299 10 3/mcL Normal 150-450 [facility] ([place] Comment on above: Performed By: #### A DIFF, MG, ANEU, GFR, CBC, BMP ####[place] [address] Platelet mean volume (Bld) [Entitic vol] 7.8 fL Normal 6.6-10.5 [facility] ([place] Comment on above: Performed By: #### A DIFF, MG, ANEU, GFR, CBC, BMP ####[place] [address] RBC 4.37 10 6/mcL Normal 4.10-5.30 [facility] ([place] Comment on above: Performed By: #### A DIFF, MG, ANEU, GFR, CBC, BMP ####[facility] [place] [address]00 WBC 7.1 10 3/mcL Normal 4.5-10.8 [facility] ([place] Comment on above: Performed By: #### A DIFF, MG, ANEU, GFR, CBC, BMP ####[place] [id number] [place] [address] LABORATORYOrdered By: SYSTEM SYSTEM on 09-06-2023 Basophils [...] 09-06-2023 Magnesium [Mass/Vol] 2.0 mg/dL Normal 1.6-2.4 [facility] ([place] Comment on above: Performed By: #### A DIFF, MG, ANEU, GFR, CBC, BMP ####[facility] [place] [address] .Auto Diffon 09-05-2023 Basophil, Absolute 0.2 10 3/mcL Normal 0.0-0.3 [facility] ([place] Comment on above: Performed By: #### B G #### [facility] [address] [place] [address] Basophils/100 WBC (Bld) 2.9 % High 0.0-2.5 [facility] ([place]) Comment on above: Performed By: #### B G #### [address] [address] Eosinophil, Absolute 0.2 10 3/mcL Normal 0.0-0.7 On license of [facility] ([place]) Comment on above: Performed By: #### B G #### [address] [address] Eosinophils/100 WBC (Bld) 2.1 % Normal 0.0-6.0 [facility] ([place]) Comment on above: Performed By: #### B G #### [address] [address] Lymphocyte, Absolute 1.8 10 3/mcL Normal 0.9-4.3 On license of [facility] ([place]) Comment on above: Performed By: #### B G #### [address] [address] Lymphocytes/100 WBC (Bld) 25.1 % Normal 20.0-40.0 [facility] ([place]) Comment on above: Performed By: #### B G #### [address] [address] Monocyte, Absolute 1.0 10 3/mcL Normal 0.1-1.4 [facility] ([place]) Comment on above: Performed By: #### B G #### [address] [address] Monocytes/100 WBC (Bld) 13.7 % High 2.0-13.0 [facility] ([place]) Comment on above: Performed By: #### B G #### [address] [address] Neutrophils/100 WBC (Bld) 56.2 % Normal 50.0-75.0 [facility] ([place]) Comment on above: Performed By: #### B G #### [address] [address] .GFRon 09-05-2023 GFR >60 Normal [facility] ([place]) Comment on above: Result Comment: GFR [...] B MP, GFR, ANEU, CBC, MG, ADIFF ####[place] [id number] [place] [address] GFR Non- >60 Normal [facility] ([place] Comment on above: Result Comment: GFR Population [...] B MP, GFR, ANEU, CBC, MG, ADIFF ####[address] [address] .NEUABSon 09-05-2023 Neutrophil, Absolute 3.9 10 3/mcL Normal 2.3-8.1 On license of [facility] ([place] Comment on above: Performed By: #### B G #### [address] [address] BMPon 09-05-2023 BUN/Creatinine Ratio 20.2 ratio Normal 10.0-22.0 [facility] ([place] Comment on above: Performed By: #### B G #### [address] [address] Calcium [Mass/Vol] 8.7 mg/dL Normal 8.7-10.4 [facility] ([place] Comment on above: Performed By: #### B G #### [address] [address] Chloride [Moles/Vol] 101 mmol/L Normal 98-110 [facility] ([place] Comment on above: Performed By: #### B G #### [address] [address] CO2 [Moles/Vol] 29 mmol/L Normal 22-32 [facility] ([place] Comment on above: Performed By: #### B G #### [address] [address] Creatinine [Mass/Vol] 0.89 mg/dL Normal 0.50-1.20 [facility] ([place] Comment on above: Performed By: #### B G #### [address] [address] Electrolyte Balance 6.0 mEq/L Normal 4.0-15.0 [facility] ([place] Comment on above: Performed By: #### B G #### [address] [address] Glucose [Mass/Vol] 87 mg/dL Normal 82-115 [facility] ([place] Comment on above: Performed By: #### B G #### [address] [address] Potassium [Moles/Vol] 3.6 mmol/L Normal 3.5-5.0 [facility] ([place] Comment on above: Performed By: #### B G #### [address] [address] Sodium [Moles/Vol] 136 mmol/L Normal 136-145 [facility] ([place] Comment on above: Performed By: #### B G #### [address] [address] Urea nitrogen [Mass/Vol] 18.0 mg/dL Normal 8.0-22.0 [facility] ([place] Comment on above: Performed By: #### B G #### [address] [address] CBCon 09-05-2023 Erythrocyte distribution width (RBC) [Ratio] 13.9 % Normal 11.5-15.5 [facility] ([place] Comment on above: Performed By: #### B G #### [place] [id number] Hematocrit (Bld) [Volume fraction] 36.4 % Normal 34.0-46.0 [facility] ([place] Comment on above: Performed By: #### B G #### [place] [id number] Hgb 12.3 G/dL Normal 12.0-16.0 [facility] ([place] Comment on above: Performed By: #### B G #### [place] [id number] MCH (RBC) [Entitic mass] 30.7 pg Normal 27.0-33.0 [facility] ([place] Comment on above: Performed By: #### B G #### [place] [address] MCHC 33.7 G/dL Normal 32.0-36.0 [facility] ([place] Comment on above: Performed By: #### B G #### [place] [id number] MCV (RBC) [Entitic vol] 91.1 fL Normal 80.0-99.0 [facility] ([place] Comment on above: Performed By: #### B G #### [place] [id number] Platelet 278 10 3/mcL Normal 150-450 [facility] ([place] Comment on above: Performed By: #### B G #### [place] [id number] Platelet mean volume (Bld) [Entitic vol] 7.5 fL Normal 6.6-10.5 [facility] ([place] Comment on above: Performed By: #### B G #### [place] [id number] RBC 4.00 10 6/mcL Low 4.10-5.30 [facility] ([place] Comment on above: Performed By: #### B G #### [facility] [address] [place] [address] WBC 7.0 10 3/mcL Normal 4.5-10.8 [facility] ([place] Comment on above: Performed By: #### B G #### [facility] [address] [place] [address] LABORATORYOrdered By: Horace Valdez on 09-05-2023 Blood Glucose Testing Reason Routine (09/05/23 7:27 AM) [facility] Glucose [Mass/Vol] 119 mg/dL High 82 - 115 mg/dL [facility] LABORATORYOrdered By: SYSTEM SYSTEM on 09-05-2023 [...] 09-05-2023 Magnesium [Mass/Vol] 2.2 mg/dL Normal 1.6-2.4 [facility] ([place] Comment on above: Performed By: #### B MP, GFR, ANEU, CBC, MG, ADIFF ####[place] [address] .Auto Diffon 09-04-2023 Basophil, Absolute 0.1 10 3/mcL Normal 0.0-0.3 [facility] ([place] Comment on above: Performed By: #### C MP, GFR, CBC, ANEU, ADIFF ####[address] [address] Basophils/100 WBC (Bld) 1.3 % Normal 0.0-2.5 [facility] ([place] Comment on above: Performed By: #### C MP, GFR, CBC, ANEU, ADIFF ####[address] [address] Eosinophil, Absolute 0.1 10 3/mcL Normal 0.0-0.7 On license of [facility] ([place] Comment on above: Performed By: #### C MP, GFR, CBC, ANEU, ADIFF ####[address] [address] Eosinophils/100 WBC (Bld) 1.0 % Normal 0.0-6.0 [facility] ([place] Comment on above: Performed By: #### C MP, GFR, CBC, ANEU, ADIFF ####[address] [address] Lymphocyte, Absolute 1.9 10 3/mcL Normal 0.9-4.3 On license of [facility] ([place] Comment on above: Performed By: #### C MP, GFR, CBC, ANEU, ADIFF ####[address] [address] Lymphocytes/100 WBC (Bld) 23.0 % Normal 20.0-40.0 [facility] ([place] Comment on above: Performed By: #### C MP, GFR, CBC, ANEU, ADIFF ####[address] [address] Monocyte, Absolute 1.0 10 3/mcL Normal 0.1-1.4 [facility] ([place] Comment on above: Performed By: #### C MP, GFR, CBC, ANEU, ADIFF ####[address] [address] Monocytes/100 WBC (Bld) 11.5 % Normal 2.0-13.0 [facility] ([place] Comment on above: Performed By: #### C MP, GFR, CBC, ANEU, ADIFF ####[address] [address] Neutrophils/100 WBC (Bld) 63.2 % Normal 50.0-75.0 [facility] ([place] Comment on above: Performed By: #### C MP, GFR, CBC, ANEU, ADIFF ####[address] [address] .GFRon 09-04-2023 GFR >60 Normal [facility] ([place] Comment on above: Result Comment: GFR Population [...] #### C MP, GFR, CBC, ANEU, ADIFF ####[address] [address] GFR Non- >60 Normal [facility] ([place] Comment on above: Result Comment: GFR Population [...] #### C MP, GFR, CBC, ANEU, ADIFF ####[address] [address] .NEUABSon 09-04-2023 Neutrophil, Absolute 5.3 10 3/mcL Normal 2.3-8.1 [facility]) Comment on above: Performed By: #### C MP, GFR, CBC, ANEU, ADIFF ####[address] [address] APTTon 09-04-2023 aPTT Coag (Bld) [Time] 27.4 s Normal 25.0-35.0 On license of [facility] ([place] Comment on above: Result Comment: For Heparin anticoagulation therapy, the recommended therapeutic range is: 54-77 seconds (APTT Correlation with Anti-Xa therapeutic range of 0.3-0.7 units/ml). PLEASE REFERENCE THE PHARMACY PROTOCOL FOR DOSING. Heparin dose (APTT) Unknown Normal [facility] ([place] aPTT Coag (Bld) [Time] 46.1 s High 25.0-35.0 On license of [facility] ([place] Comment on above: Result Comment: For Heparin anticoagulation therapy, the recommended therapeutic range is: 54-77 seconds (APTT Correlation with Anti-Xa therapeutic range of 0.3-0.7 units/ml). PLEASE REFERENCE THE PHARMACY PROTOCOL FOR DOSING. Heparin dose (APTT) Heparin IV Normal [facility] ([place] aPTT Coag (Bld) [Time] 41.1 s High 25.0-35.0 On license of [facility] ([place] Comment on above: Result Comment: For Heparin anticoagulation therapy, the recommended therapeutic range is: 54-77 seconds (APTT Correlation with Anti-Xa therapeutic range of 0.3-0.7 units/ml). PLEASE REFERENCE THE PHARMACY PROTOCOL FOR DOSING. Heparin dose (APTT) Heparin IV Normal [facility] ([place] CBCon 09-04-2023 Erythrocyte distribution width (RBC) [Ratio] 14.0 % Normal 11.5-15.5 [facility] ([place] Comment on above: Performed By: #### C MP, GFR, CBC, ANEU, ADIFF ####[address] [address] Hematocrit (Bld) [Volume fraction] 37.8 % Normal 34.0-46.0 [facility] ([place] Comment on above: Performed By: #### C MP, GFR, CBC, ANEU, ADIFF ####[place] [address] Hgb 12.8 G/dL Normal 12.0-16.0 [facility] ([place] Comment on above: Performed By: #### C MP, GFR, CBC, ANEU, ADIFF ####[place] [address] MCH (RBC) [Entitic mass] 30.7 pg Normal 27.0-33.0 [facility] ([place] Comment on above: Performed By: #### C MP, GFR, CBC, ANEU, ADIFF ####[place] [address] MCHC 33.9 G/dL Normal 32.0-36.0 [facility] ([place] Comment on above: Performed By: #### C MP, GFR, CBC, ANEU, ADIFF ####[place] [address] MCV (RBC) [Entitic vol] 90.6 fL Normal 80.0-99.0 [facility] ([place] Comment on above: Performed By: #### C MP, GFR, CBC, ANEU, ADIFF ####[place] [address] Platelet 281 10 3/mcL Normal 150-450 [facility] ([place] Comment on above: Performed By: #### C MP, GFR, CBC, ANEU, ADIFF ####[place] [address] Platelet mean volume (Bld) [Entitic vol] 7.6 fL Normal 6.6-10.5 [facility] ([place] Comment on above: Performed By: #### C MP, GFR, CBC, ANEU, ADIFF ####[place] [address] RBC 4.17 10 6/mcL Normal 4.10-5.30 [facility] ([place] Comment on above: Performed By: #### C MP, GFR, CBC, ANEU, ADIFF ####[address] [address] WBC 8.5 10 3/mcL Normal 4.5-10.8 [facility] ([place] Comment on above: Performed By: #### C MP, GFR, CBC, ANEU, ADIFF ####[address] [address] CMPon 09-04-2023 Albumin Level 3.3 G/dL Normal 3.2-4.8 [facility] ([place] Comment on above: Performed By: #### C MP, GFR, CBC, ANEU, ADIFF ####[place] [address] Albumin/Globulin [Mass ratio] 1.0 {ratio} Normal 0.9-1.6 [facility] ([place] Comment on above: Performed By: #### C MP, GFR, CBC, ANEU, ADIFF ####[place] [address] ALP [Catalytic activity/Vol] 95 U/L Normal 38-126 [facility] ([place] Comment on above: Performed By: #### C MP, GFR, CBC, ANEU, ADIFF ####[place] [address] ALT [Catalytic activity/Vol] 103 U/L High 10-49 [facility] ([place] Comment on above: Performed By: #### C MP, GFR, CBC, ANEU, ADIFF ####[place] [address] AST [Catalytic activity/Vol] 64 U/L High 8-34 [facility] ([place] Comment on above: Performed By: #### C MP, GFR, CBC, ANEU, ADIFF ####[place] [address] Bili Total 1.00 mg/dL Normal 0.20-1.20 [facility] ([place] Comment on above: Result Comment: Use of this assay is not recommended for patients undergoing treatment with eltrombopag due to the potential for falsely elevated results. Performed By: #### C MP, GFR, CBC, ANEU, ADIFF ####[place] [address] BUN/Creatinine Ratio 23.1 ratio High 10.0-22.0 [facility] ([place] Comment on above: Performed By: #### C MP, GFR, CBC, ANEU, ADIFF ####[address] [address] Calcium [Mass/Vol] 9.0 mg/dL Normal 8.7-10.4 [facility] ([place] Comment on above: Performed By: #### C MP, GFR, CBC, ANEU, ADIFF ####[place] [address] Chloride [Moles/Vol] 100 mmol/L Normal 98-110 [facility] ([place] Comment on above: Performed By: #### C MP, GFR, CBC, ANEU, ADIFF ####[place] [id number] CO2 [Moles/Vol] 30 mmol/L Normal 22-32 [facility] ([place] Comment on above: Performed By: #### C MP, GFR, CBC, ANEU, ADIFF ####[place] [address] Creatinine [Mass/Vol] 0.78 mg/dL Normal 0.50-1.20 [facility] ([place]) Comment on above: Performed By: #### C MP, GFR, CBC, ANEU, ADIFF ####[place] [address] Electrolyte Balance 3.0 mEq/L Low 4.0-15.0 [facility] ([place] Comment on above: Performed By: #### C MP, GFR, CBC, ANEU, ADIFF ####[place] [id number] Globulin 3.4 G/dL Normal 1.5-3.8 [facility] ([place] Comment on above: Performed By: #### C MP, GFR, CBC, ANEU, ADIFF ####[place] [address] Glucose [Mass/Vol] 134 mg/dL High 82-115 [facility] ([place] Comment on above: Performed By: #### C MP, GFR, CBC, ANEU, ADIFF ####[place] [id number] [address] [place] [address] Potassium [Moles/Vol] 3.1 mmol/L Low 3.5-5.0 [facility] ([place] Comment on above: Performed By: #### C MP, GFR, CBC, ANEU, ADIFF ####[address] [address] Sodium [Moles/Vol] 133 mmol/L Low 136-145 [facility] ([place] Comment on above: Performed By: #### C MP, GFR, CBC, ANEU, ADIFF ####[address] [address] Total Protein 6.7 G/dL Normal 5.7-8.2 [facility] ([place] Comment on above: Result Comment: No te - New Reference Range in effect 20 Performed By: #### C MP, GFR, CBC, ANEU, ADIFF ####[address] [address] Urea nitrogen [Mass/Vol] 18.0 mg/dL Normal 8.0-22.0 [facility] ([place] Comment on above: Performed By: #### C MP, GFR, CBC, ANEU, ADIFF ####[address] [address] LABORATORYOrdered By: Pee Cerna on 09-04-2023 Blood Glucose Testing Reason Routine (09/04/23 9:00 PM) [facility] Glucose [Mass/Vol] 98 mg/dL Normal 82 - 115 mg/dL [facility] LABORATORYOrdered By: Carolynn Weston on 09-04-2023 [...] Glucose Testing Reason Routine (09/04/23 4:19 PM) [facility] Glucose [Mass/Vol] 97 mg/dL Normal 82 - 115 mg/dL [facility] LABORATORYOrdered By: SYSTEM SYSTEM on 09-04-2023 [...] (S/P/Bld) [Vol rate/Area] ml/min/1.73sqm Invalid Interpretation Code [facility] Comment on above: Interpretive Data: GFR Population [...] (S/P/Bld) [Vol rate/Area] ml/min/1.73sqm Invalid Interpretation Code [facility] Comment on above: Interpretive Data: GFR Population [...] 3.4 G/dL Normal 1.5 - 3.8 G/dL [facility] Glucose [Mass/Vol] 134 mg/dL High 82 - [...] IV (09/04/23 1:16 AM) [facility] Mycoplasma IgM Negative Normal [facility] ([place] Comment on above: Result Comment: INTE RPRETATION [...] CBC, ADIFF, ANEU, MYCO, CMP, CAION, GFR ####[address] [address] XR CHEST 1 VIEWon 09-04-2023 XR CHEST [...] 09/04/2023 6:42:09 AM Ordering Provider: FEDERICA Soto [facility] ([place]) .Auto Diffon 09-03-2023 Basophil, Absolute 0.1 10 3/mcL Normal 0.0-0.3 [facility] ([place] Comment on above: Performed By: #### T ROPHS, MG, LAC, GFR, CBC, CMP, ADIFF, ANEU ####[address] [address] Basophils/100 WBC (Bld) 0.6 % Normal 0.0-2.5 [facility] ([place]) Comment on above: Performed By: #### T ROPHS, MG, LAC, GFR, CBC, CMP, ADIFF, ANEU ####[address] [address] Eosinophil, Absolute 0.0 10 3/mcL Normal 0.0-0.7 On license of [facility] ([place]) Comment on above: Performed By: #### T ROPHS, MG, LAC, GFR, CBC, CMP, ADIFF, ANEU ####[address] [address] Eosinophils/100 WBC (Bld) 0.2 % Normal 0.0-6.0 [facility] ([place] Comment on above: Performed By: #### T ROPHS, MG, LAC, GFR, CBC, CMP, ADIFF, ANEU ####[address] [address] Lymphocyte, Absolute 2.0 10 3/mcL Normal 0.9-4.3 On license of [facility] ([place] Comment on above: Performed By: #### T ROPHS, MG, LAC, GFR, CBC, CMP, ADIFF, ANEU ####[address] [address] Lymphocytes/100 WBC (Bld) 20.9 % Normal 20.0-40.0 [facility] ([place] Comment on above: Performed By: #### T ROPHS, MG, LAC, GFR, CBC, CMP, ADIFF, ANEU ####[address] [address] Monocyte, Absolute 1.1 10 3/mcL Normal 0.1-1.4 [facility] ([place] Comment on above: Performed By: #### T ROPHS, MG, LAC, GFR, CBC, CMP, ADIFF, ANEU ####[address] [address] Monocytes/100 WBC (Bld) 10.8 % Normal 2.0-13.0 [facility] ([place]) Comment on above: Performed By: #### T ROPHS, MG, LAC, GFR, CBC, CMP, ADIFF, ANEU ####[address] [address] Neutrophils/100 WBC (Bld) 67.5 % Normal 50.0-75.0 [facility] ([place] Comment on above: Performed By: #### T ROPHS, MG, LAC, GFR, CBC, CMP, ADIFF, ANEU ####[address] [address] .GFRon 09-03-2023 GFR >60 Normal [facility] ([place] Comment on above: Result Comment: GFR Population [...] meters Performed By: #### B G #### [address] [address] GFR Non- 56 ml/min/1.73sqm Normal [facility] ([place] Comment on above: Result Comment: GFR Population [...] meters Performed By: #### B G #### [address] [address] .NEUABSon 09-03-2023 Neutrophil, Absolute 6.6 10 3/mcL Normal 2.3-8.1 On license of [facility] ([place] Comment on above: Performed By: #### T ROPHS, MG, LAC, GFR, CBC, CMP, ADIFF, ANEU ####[address] [address] APTTon 09-03-2023 aPTT Coag (Bld) [Time] 44.3 s High 25.0-35.0 On license of [facility] ([place]) Comment on above: Result Comment: For Heparin anticoagulation therapy, the recommended therapeutic range is: 54-77 seconds (APTT Correlation with Anti-Xa therapeutic range of 0.3-0.7 units/ml). PLEASE REFERENCE THE PHARMACY PROTOCOL FOR DOSING. Heparin dose (APTT) Heparin IV Normal [facility] ([place]) aPTT Coag (Bld) [Time] 45.1 s High 25.0-35.0 On license of [facility] ([place] Comment on above: Result Comment: For Heparin anticoagulation therapy, the recommended therapeutic range is: 54-77 seconds (APTT Correlation with Anti-Xa therapeutic range of 0.3-0.7 units/ml). PLEASE REFERENCE THE PHARMACY PROTOCOL FOR DOSING. Heparin dose (APTT) Heparin IV Normal [facility] ([place]) BGon 09-03-2023 Barometric Pressure 715 mmHg Normal [facility] ([place] Comment on above: Performed By: #### L AC #### [address] [address] Base excess Calc (Bld) [Moles/Vol] 7.6 mmol/L Normal [facility] ([place] Comment on above: Performed By: #### L AC #### [address] [address] CO2 [Moles/Vol] 30.7 mmol/L High 22.0-30.0 [facility] ([place] Comment on above: Performed By: #### L AC #### [address] [address] HCO3 (Bld) [Moles/Vol] 29.7 mmol/L High 21.0-29.0 [facility] ([place] Comment on above: Performed By: #### L AC #### [address] [address] Oxygen (Bld) [Partial pressure] 65.0 mm[Hg] Low 74.0-108.0 [facility] ([place] Comment on above: Performed By: #### L AC #### [address] [address] Oxygen saturation in Blood 94.0 % Normal 92.0-96.0 [facility] ([place] Comment on above: Performed By: #### L AC #### [address] [address] pCO2 33.3 mmHg Normal 32.0-46.0 [facility] ([place] Comment on above: Performed By: #### L AC #### [address] [address] pH (Bld) 7.568 [pH] High 7.380-7.460 [facility] ([place] Comment on above: Performed By: #### L AC #### [address] [address] Barometric Pressure 720 mmHg Normal [facility] ([place] Comment on above: Performed By: #### B G ####[address] [address] Base excess Calc (Bld) [Moles/Vol] 7.2 mmol/L Normal [facility] ([place] Comment on above: Performed By: #### B G ####[address] [address] CO2 [Moles/Vol] 32.5 mmol/L High 22.0-30.0 [facility] ([place] Comment on above: Performed By: #### B G ####[address] [address] HCO3 (Bld) [Moles/Vol] 31.2 mmol/L High 21.0-29.0 [facility] ([place] Comment on above: Performed By: #### B G ####[place] [phone] Oxygen (Bld) [Partial pressure] 86.0 mm[Hg] Normal 74.0-108.0 [facility] ([place] Comment on above: Performed By: #### B G ####[address] [address] Oxygen saturation in Blood 96.7 % High 92.0-96.0 [facility] ([place] Comment on above: Performed By: #### B G ####[address] [address] pCO2 41.9 mmHg Normal 32.0-46.0 [facility] ([place] Comment on above: Performed By: #### B G ####[place] [id number] [address] [place] [address] pH (Bld) 7.490 [pH] High 7.380-7.460 [facility] ([place] Comment on above: Performed By: #### B G ####[place] [id number] CBCon 09-03-2023 Erythrocyte distribution width (RBC) [Ratio] 14.6 % Normal 11.5-15.5 [facility] ([place] Comment on above: Performed By: #### T ROPHS, MG, LAC, GFR, CBC, CMP, ADIFF, ANEU ####[place] [address] Hematocrit (Bld) [Volume fraction] 36.6 % Normal 34.0-46.0 [facility] ([place] Comment on above: Performed By: #### T ROPHS, MG, LAC, GFR, CBC, CMP, ADIFF, ANEU ####[place] [address] Hgb 12.3 G/dL Normal 12.0-16.0 [facility] ([place] Comment on above: Performed By: #### T ROPHS, MG, LAC, GFR, CBC, CMP, ADIFF, ANEU ####[place] [address] MCH (RBC) [Entitic mass] 30.3 pg Normal 27.0-33.0 [facility] ([place] Comment on above: Performed By: #### T ROPHS, MG, LAC, GFR, CBC, CMP, ADIFF, ANEU ####[place] [address] MCHC 33.5 G/dL Normal 32.0-36.0 [facility] ([place] Comment on above: Performed By: #### T ROPHS, MG, LAC, GFR, CBC, CMP, ADIFF, ANEU ####[place] [address] MCV (RBC) [Entitic vol] 90.2 fL Normal 80.0-99.0 [facility] ([place] Comment on above: Performed By: #### T ROPHS, MG, LAC, GFR, CBC, CMP, ADIFF, ANEU ####[place] [address] Platelet 274 10 3/mcL Normal 150-450 [facility] ([place] Comment on above: Performed By: #### T ROPHS, MG, LAC, GFR, CBC, CMP, ADIFF, ANEU ####[address] [address] Platelet mean volume (Bld) [Entitic vol] 7.7 fL Normal 6.6-10.5 [facility] ([place] Comment on above: Performed By: #### T ROPHS, MG, LAC, GFR, CBC, CMP, ADIFF, ANEU ####[place] [address] RBC 4.05 10 6/mcL Low 4.10-5.30 [facility] ([place] Comment on above: Performed By: #### T ROPHS, MG, LAC, GFR, CBC, CMP, ADIFF, ANEU ####[place] [address] WBC 9.8 10 3/mcL Normal 4.5-10.8 [facility] ([place] Comment on above: Performed By: #### T ROPHS, MG, LAC, GFR, CBC, CMP, ADIFF, ANEU ####[place] [address] CMPon 09-03-2023 Albumin Level 2.8 G/dL Low 3.2-4.8 [facility] ([place] Comment on above: Performed By: #### B G #### [place] [address] Albumin/Globulin [Mass ratio] 1.0 {ratio} Normal 0.9-1.6 [facility] ([place] Comment on above: Performed By: #### B G #### [place] [address] ALP [Catalytic activity/Vol] 98 U/L Normal 38-126 [facility] ([place] Comment on above: Performed By: #### B G #### [place] [id number] ALT [Catalytic activity/Vol] 138 U/L High 10-49 [facility] ([place] Comment on above: Performed By: #### B G #### [place] [address] AST [Catalytic activity/Vol] 92 U/L High 8-34 [facility] ([place] Comment on above: Performed By: #### B G #### [address] [address] Bili Total 0.60 mg/dL Normal 0.20-1.20 [facility] ([place] Comment on above: Result Comment: Use of this assay is not recommended for patients undergoing treatment with eltrombopag due to the potential for falsely elevated results. Performed By: #### B G #### [place] [phone] BUN/Creatinine Ratio 27.6 ratio High 10.0-22.0 [facility] ([place] Comment on above: Performed By: #### B G #### [place] [phone] Calcium [Mass/Vol] 8.5 mg/dL Low 8.7-10.4 [facility] ([place] Comment on above: Performed By: #### B G #### [place] [phone] Chloride [Moles/Vol] 105 mmol/L Normal 98-110 [facility] ([place] Comment on above: Performed By: #### B G #### [place] [phone] CO2 [Moles/Vol] 31 mmol/L Normal 22-32 [facility] ([place] Comment on above: Performed By: #### B G #### [place] [phone] Creatinine [Mass/Vol] 0.98 mg/dL Normal 0.50-1.20 [facility] ([place]) Comment on above: Performed By: #### B G #### [address] [address] Electrolyte Balance 4.0 mEq/L Normal 4.0-15.0 [facility] ([place] Comment on above: Performed By: #### B G #### [place] [phone] Globulin 2.9 G/dL Normal 1.5-3.8 [facility] ([place] Comment on above: Performed By: #### B G #### [place] [id number] [address] [place] [address] Glucose [Mass/Vol] 110 mg/dL Normal 82-115 [facility] ([place] Comment on above: Performed By: #### B G #### [address] [address] Potassium [Moles/Vol] 3.8 mmol/L Normal 3.5-5.0 [facility] ([place] Comment on above: Performed By: #### B G #### [address] [address] Sodium [Moles/Vol] 140 mmol/L Normal 136-145 [facility] ([place] Comment on above: Performed By: #### B G #### [address] [address] Total Protein 5.7 G/dL Normal 5.7-8.2 [facility] ([place] Comment on above: Result Comment: No te - New Reference Range in effect 20 Performed By: #### B G #### [address] [address] Urea nitrogen [Mass/Vol] 27.0 mg/dL High 8.0-22.0 [facility] ([place] Comment on above: Performed By: #### B G #### [address] [address] LABORATORYOrdered By: Ariadna Estes on 09-03-2023 Barometric [...] Lactic Acid Lvl 1.6 mmol/L Normal 0.2-2.0 [facility] ([place] Comment on above: Performed By: #### B G #### [address] [address] MGon 09-03-2023 Magnesium [Mass/Vol] 2.3 mg/dL Normal 1.6-2.4 [facility] ([place] Comment on above: Performed By: #### B G #### [address] [address] TROPHSon 09-03-2023 Troponin I High Sensitivity 1793.02 ng/L High 0.00-34.00 [facility] ([place] Comment on above: Performed By: #### B G #### [address] [address] Troponin I High Sensitivity 2219.13 ng/L High 0.00-34.00 [facility] ([place] Comment on above: Performed By: #### B G #### [address] [address] .Auto Diffon 09-02-2023 Basophil, Absolute 0.0 10 3/mcL Normal 0.0-0.3 [facility] ([place] Comment on above: Performed By: #### L AC #### [address] [address] Basophils/100 WBC (Bld) 0.6 % Normal 0.0-2.5 [facility] ([place]) Comment on above: Performed By: #### L AC #### [address] [address] Eosinophil, Absolute 0.0 10 3/mcL Normal 0.0-0.7 On license of [facility] ([place] Comment on above: Performed By: #### L AC #### [address] [address] Eosinophils/100 WBC (Bld) 0.0 % Normal 0.0-6.0 [facility] ([place] Comment on above: Performed By: #### L AC #### [address] [address] Lymphocyte, Absolute 0.6 10 3/mcL Low 0.9-4.3 On license of [facility] ([place] Comment on above: Performed By: #### L AC #### [address] [address] Lymphocytes/100 WBC (Bld) 8.0 % Low 20.0-40.0 [facility] ([place] Comment on above: Performed By: #### L AC #### [address] [address] Monocyte, Absolute 0.2 10 3/mcL Normal 0.1-1.4 [facility] ([place] Comment on above: Performed By: #### L AC #### [address] [address] Monocytes/100 WBC (Bld) 2.7 % Normal 2.0-13.0 [facility] ([place] Comment on above: Performed By: #### L AC #### [address] [address] Neutrophils/100 WBC (Bld) 88.7 % High 50.0-75.0 [facility] ([place] Comment on above: Performed By: #### L AC #### [address] [address] Basophil, Absolute 0.0 10 3/mcL Normal 0.0-0.3 [facility] ([place] Comment on above: Performed By: #### P HOS, TROPHS, MG, CBC, ADIFF, ANEU, MYCO, CMP, CAION, GFR ####[address] [address] Basophils/100 WBC (Bld) 0.4 % Normal 0.0-2.5 [facility] ([place] Comment on above: Performed By: #### P HOS, TROPHS, MG, CBC, ADIFF, ANEU, MYCO, CMP, CAION, GFR ####[address] [address] Eosinophil, Absolute 0.0 10 3/mcL Normal 0.0-0.7 On license of [facility] ([place]) Comment on above: Performed By: #### P HOS, TROPHS, MG, CBC, ADIFF, ANEU, MYCO, CMP, CAION, GFR ####[address] [address] Eosinophils/100 WBC (Bld) 0.0 % Normal 0.0-6.0 [facility] ([place] Comment on above: Performed By: #### P HOS, TROPHS, MG, CBC, ADIFF, ANEU, MYCO, CMP, CAION, GFR ####[address] [address] Lymphocyte, Absolute 0.3 10 3/mcL Low 0.9-4.3 On license of [facility] ([place] Comment on above: Performed By: #### P HOS, TROPHS, MG, CBC, ADIFF, ANEU, MYCO, CMP, CAION, GFR ####[address] [address] Lymphocytes/100 WBC (Bld) 3.6 % Low 20.0-40.0 [facility] ([place] Comment on above: Performed By: #### P HOS, TROPHS, MG, CBC, ADIFF, ANEU, MYCO, CMP, CAION, GFR ####[address] [address] Monocyte, Absolute 0.2 10 3/mcL Normal 0.1-1.4 [facility] ([place] Comment on above: Performed By: #### P HOS, TROPHS, MG, CBC, ADIFF, ANEU, MYCO, CMP, CAION, GFR ####[address] [address] Monocytes/100 WBC (Bld) 1.9 % Low 2.0-13.0 [facility] ([place] Comment on above: Performed By: #### P HOS, TROPHS, MG, CBC, ADIFF, ANEU, MYCO, CMP, CAION, GFR ####[place] [id number] [place] [address] Neutrophils/100 WBC (Bld) 94.1 % High 50.0-75.0 [facility] ([place] Comment on above: Performed By: #### P HOS, TROPHS, MG, CBC, ADIFF, ANEU, MYCO, CMP, CAION, GFR ####[address] [address] .GFRon 09-02-2023 GFR Non- >60 Normal [facility] ([place] Comment on above: Result Comment: GFR Population [...] CBC, ADIFF, ANEU, MYCO, CMP, CAION, GFR ####[address] [address] GFR >60 Normal [facility] ([place] Comment on above: Result Comment: GFR Population [...] CBC, ADIFF, ANEU, MYCO, CMP, CAION, GFR ####[address] [address] .NEUABSon 09-02-2023 Neutrophil, Absolute 6.8 10 3/mcL Normal 2.3-8.1 On license of [facility] ([place] Comment on above: Performed By: #### L AC #### [place] [address] Neutrophil, Absolute 9.1 10 3/mcL High 2.3-8.1 On license of [facility] ([place] Comment on above: Performed By: #### P HOS, TROPHS, MG, CBC, ADIFF, ANEU, MYCO, CMP, CAION, GFR ####[place] [address] APTTon 09-02-2023 aPTT Coag (Bld) [Time] 67.5 s High 25.0-35.0 On license of [facility] ([place] Comment on above: Result Comment: For Heparin anticoagulation therapy, the recommended therapeutic range is: 54-77 seconds (APTT Correlation with Anti-Xa therapeutic range of 0.3-0.7 units/ml). PLEASE REFERENCE THE PHARMACY PROTOCOL FOR DOSING. Heparin dose (APTT) Heparin IV Normal [facility] [place] aPTT Coag (Bld) [Time] 27.8 s Normal 25.0-35.0 On license of [facility] ([place] Comment on above: Result Comment: For Heparin anticoagulation therapy, the recommended therapeutic range is: 54-77 seconds (APTT Correlation with Anti-Xa therapeutic range of 0.3-0.7 units/ml). PLEASE REFERENCE THE PHARMACY PROTOCOL FOR DOSING. Heparin dose (APTT) Heparin IV Normal [facility] ([place] BGon 09-02-2023 Barometric Pressure 714 mmHg Normal [facility] ([place] Comment on above: Performed By: #### B G #### [address] [address] Base excess Calc (Bld) [Moles/Vol] 1.5 mmol/L Normal [facility] ([place] Comment on above: Performed By: #### B G #### [address] [address] CO2 [Moles/Vol] 27.8 mmol/L Normal 22.0-30.0 [facility] ([place] Comment on above: Performed By: #### B G #### [address] [address] HCO3 (Bld) [Moles/Vol] 26.5 mmol/L Normal 21.0-29.0 [facility] ([place] Comment on above: Performed By: #### B G #### [place] [phone] Oxygen (Bld) [Partial pressure] 130.5 mm[Hg] High 74.0-108.0 [facility] [place] Comment on above: Performed By: #### B G #### [place] [phone] Oxygen saturation in Blood 98.7 % High 92.0-96.0 [facility] [place] Comment on above: Performed By: #### B G #### [address] [address] pCO2 43.2 mmHg Normal 32.0-46.0 [facility] [place] Comment on above: Performed By: #### B G #### [address] [address] pH (Bld) 7.406 [pH] Normal 7.380-7.460 [facility] ([place] Comment on above: Performed By: #### B G #### [address] [address] CAIONon 09-02-2023 Calcium Ionized 0.99 mmol/L Low 1.12-1.32 [facility] ([place] Comment on above: Performed By: #### P HOS, TROPHS, MG, CBC, ADIFF, ANEU, MYCO, CMP, CAION, GFR ####[place] [address] CBCon 09-02-2023 Erythrocyte distribution width (RBC) [Ratio] 14.4 % Normal 11.5-15.5 [facility] [place] Comment on above: Performed By: #### L AC #### [place] [address] Hematocrit (Bld) [Volume fraction] 39.9 % Normal 34.0-46.0 [facility] [place] Comment on above: Performed By: #### L AC #### [place] [address] Hgb 13.4 G/dL Normal 12.0-16.0 [facility] ([place] Comment on above: Performed By: #### L AC #### [place] [address] MCH (RBC) [Entitic mass] 30.8 pg Normal 27.0-33.0 [facility] [place] Comment on above: Performed By: #### L AC #### [place] [address] MCHC 33.6 G/dL Normal 32.0-36.0 [facility] [place] Comment on above: Performed By: #### L AC #### [place] [address] MCV (RBC) [Entitic vol] 91.5 fL Normal 80.0-99.0 [facility] ([place] Comment on above: Performed By: #### L AC #### [place] [id number] Platelet 278 10 3/mcL Normal 150-450 [facility] [place] Comment on above: Performed By: #### L AC #### [place] [phone] Platelet mean volume (Bld) [Entitic vol] 7.2 fL Normal 6.6-10.5 [facility] [place] Comment on above: Performed By: #### L AC #### [place] [address] RBC 4.36 10 6/mcL Normal 4.10-5.30 [facility] ([place] Comment on above: Performed By: #### L AC #### [place] [address] WBC 7.7 10 3/mcL Normal 4.5-10.8 [facility] [place] Comment on above: Performed By: #### L AC #### [place] [address] Erythrocyte distribution width (RBC) [Ratio] 14.5 % Normal 11.5-15.5 [facility] ([place] Comment on above: Performed By: #### P HOS, TROPHS, MG, CBC, ADIFF, ANEU, MYCO, CMP, CAION, GFR ####[place] [address] Hematocrit (Bld) [Volume fraction] 42.1 % Normal 34.0-46.0 [facility] ([place] Comment on above: Performed By: #### P HOS, TROPHS, MG, CBC, ADIFF, ANEU, MYCO, CMP, CAION, GFR ####[place] [address] Hgb 13.8 G/dL Normal 12.0-16.0 [facility] ([place] Comment on above: Performed By: #### P HOS, TROPHS, MG, CBC, ADIFF, ANEU, MYCO, CMP, CAION, GFR ####[place] [address] MCH (RBC) [Entitic mass] 30.3 pg Normal 27.0-33.0 [facility] ([place] Comment on above: Performed By: #### P HOS, TROPHS, MG, CBC, ADIFF, ANEU, MYCO, CMP, CAION, GFR ####[place] [address] MCHC 32.9 G/dL Normal 32.0-36.0 [facility] ([place] Comment on above: Performed By: #### P HOS, TROPHS, MG, CBC, ADIFF, ANEU, MYCO, CMP, CAION, GFR ####[place] [address] MCV (RBC) [Entitic vol] 92.3 fL Normal 80.0-99.0 [facility] ([place]) Comment on above: Performed By: #### P HOS, TROPHS, MG, CBC, ADIFF, ANEU, MYCO, CMP, CAION, GFR ####[place] [address] Platelet 314 10 3/mcL Normal 150-450 [facility] ([place] Comment on above: Performed By: #### P HOS, TROPHS, MG, CBC, ADIFF, ANEU, MYCO, CMP, CAION, GFR ####[place] [address] Platelet mean volume (Bld) [Entitic vol] 7.3 fL Normal 6.6-10.5 [facility] ([place] Comment on above: Performed By: #### P HOS, TROPHS, MG, CBC, ADIFF, ANEU, MYCO, CMP, CAION, GFR ####[place] [address] RBC 4.56 10 6/mcL Normal 4.10-5.30 [facility] ([place] Comment on above: Performed By: #### P HOS, TROPHS, MG, CBC, ADIFF, ANEU, MYCO, CMP, CAION, GFR ####[place] [address] WBC 9.6 10 3/mcL Normal 4.5-10.8 [facility] ([place] Comment on above: Performed By: #### P HOS, TROPHS, MG, CBC, ADIFF, ANEU, MYCO, CMP, CAION, GFR ####[place] [address] CMPon 09-02-2023 Albumin Level 3.3 G/dL Normal 3.2-4.8 [facility] ([place] Comment on above: Performed By: #### P HOS, TROPHS, MG, CBC, ADIFF, ANEU, MYCO, CMP, CAION, GFR ####[address] [address] Albumin/Globulin [Mass ratio] 0.9 {ratio} Normal 0.9-1.6 [facility] ([place] Comment on above: Performed By: #### P HOS, TROPHS, MG, CBC, ADIFF, ANEU, MYCO, CMP, CAION, GFR ####[address] [address] ALP [Catalytic activity/Vol] 130 U/L High 38-126 [facility] ([place] Comment on above: Performed By: #### P HOS, TROPHS, MG, CBC, ADIFF, ANEU, MYCO, CMP, CAION, GFR ####[address] [address] ALT [Catalytic activity/Vol] 226 U/L High 10-49 [facility] ([place] Comment on above: Performed By: #### P HOS, TROPHS, MG, CBC, ADIFF, ANEU, MYCO, CMP, CAION, GFR ####[address] [address] AST [Catalytic activity/Vol] 230 U/L High 8-34 [facility] ([place] Comment on above: Performed By: #### P HOS, TROPHS, MG, CBC, ADIFF, ANEU, MYCO, CMP, CAION, GFR ####[address] [address] Bili Total 0.40 mg/dL Normal 0.20-1.20 [facility] ([place] Comment on above: Result Comment: Use of this assay is not recommended for patients undergoing treatment with eltrombopag due to the potential for falsely elevated results. Performed By: #### P HOS, TROPHS, MG, CBC, ADIFF, ANEU, MYCO, CMP, CAION, GFR ####[address] [address] BUN/Creatinine Ratio 25.6 ratio High 10.0-22.0 [facility] ([place]) Comment on above: Performed By: #### P HOS, TROPHS, MG, CBC, ADIFF, ANEU, MYCO, CMP, CAION, GFR ####[place] [address] Calcium [Mass/Vol] 8.0 mg/dL Low 8.7-10.4 [facility] ([place]) Comment on above: Performed By: #### P HOS, TROPHS, MG, CBC, ADIFF, ANEU, MYCO, CMP, CAION, GFR ####[place] [address] Chloride [Moles/Vol] 106 mmol/L Normal 98-110 [facility] ([place] Comment on above: Performed By: #### P HOS, TROPHS, MG, CBC, ADIFF, ANEU, MYCO, CMP, CAION, GFR ####[place] [address] CO2 [Moles/Vol] 28 mmol/L Normal 22-32 [facility] ([place] Comment on above: Performed By: #### P HOS, TROPHS, MG, CBC, ADIFF, ANEU, MYCO, CMP, CAION, GFR ####[place] [address] Creatinine [Mass/Vol] 0.78 mg/dL Normal 0.50-1.20 [facility] ([place]) Comment on above: Performed By: #### P HOS, TROPHS, MG, CBC, ADIFF, ANEU, MYCO, CMP, CAION, GFR ####[place] [address] Electrolyte Balance 6.0 mEq/L Normal 4.0-15.0 [facility] ([place]) Comment on above: Performed By: #### P HOS, TROPHS, MG, CBC, ADIFF, ANEU, MYCO, CMP, CAION, GFR ####[place] [address] Globulin 3.5 G/dL Normal 1.5-3.8 [facility] ([place] Comment on above: Performed By: #### P HOS, TROPHS, MG, CBC, ADIFF, ANEU, MYCO, CMP, CAION, GFR ####[place] [id number] Glucose [Mass/Vol] 165 mg/dL High 82-115 [facility] ([place] Comment on above: Performed By: #### P HOS, TROPHS, MG, CBC, ADIFF, ANEU, MYCO, CMP, CAION, GFR ####[address] [address] Potassium [Moles/Vol] 2.9 mmol/L Low 3.5-5.0 [facility] ([place] Comment on above: Performed By: #### P HOS, TROPHS, MG, CBC, ADIFF, ANEU, MYCO, CMP, CAION, GFR ####[place] [address] Sodium [Moles/Vol] 140 mmol/L Normal 136-145 [facility] ([place] Comment on above: Performed By: #### P HOS, TROPHS, MG, CBC, ADIFF, ANEU, MYCO, CMP, CAION, GFR ####[place] [address] Total Protein 6.8 G/dL Normal 5.7-8.2 [facility] ([place] Comment on above: Result Comment: No te - New Reference Range in effect 20 Performed By: #### P HOS, TROPHS, MG, CBC, ADIFF, ANEU, MYCO, CMP, CAION, GFR ####[place] [address] Urea nitrogen [Mass/Vol] 20.0 mg/dL Normal 8.0-22.0 [facility] ([place] Comment on above: Performed By: #### P HOS, TROPHS, MG, CBC, ADIFF, ANEU, MYCO, CMP, CAION, GFR ####[address] [address] HEPACon 09-02-2023 Hep A IgM Ab Non-Reactive Normal Non-Reactiv e [facility] ([place] Comment on above: Performed By: #### L AC #### [place] [address] Hep A IgM Ab Int Normal [facility] ([place] Comment on above: Result Comment: No s erological evidence of a current Hepatitis A infection. See Interp Performed By: #### L AC #### [place] [address] Hep B Core IgM Ab Non-Reactive Normal Non-Reacti v e [facility] ([place] Comment on above: Performed By: #### L AC #### [place] [address] Hep B Core IgM Ab Int Normal [facility] ([place]) Comment on above: Result Comment: Samp les with a value < 0.80 Index are considered nonreactive (negative) for IgM antibodies to hepatitis B core antigen. See Interp Performed By: #### L AC #### [place] [address] Hep C Ab Non-Reactive Normal Non-Reactiv [facility] ([place]) Comment on above: Performed By: #### L AC #### [place] [address] Hep C Ab Int [facility] ([place] Comment on above: Result Comment: Nonr eactive: Samples with a value < 0.80 are considered nonreactive (negative) for antibodies to HCV. A negative test result does not exclude the possibility of exposure to or infection with HCV. HCV antibodies may be undetectable in some stages of the infection and in some clinical conditions. See Interp Performed By: #### L AC #### [place] [address] Hep B Surf Ag Non-Reactive Normal Non-Reactiv [facility] ([place]) Comment on above: Performed By: #### L AC #### [place] [address] LABORATORYOrdered By: Ariadna Estes on 09-02-2023 Lactate [...] mg/dL Normal 2.4 - 5 .1 mg/dL [facility] Comment on above: Interpretive Data: * *Note [...] Comment on above: Interpretive Data: T jt [employer] (CHEST, 1992, 102:[id number]) [...] Lactic Acid Lvl 1.7 mmol/L Normal 0.2-2.0 [facility] ([place] Comment on above: Performed By: #### L AC ####[place] [address] Lactic Acid Lvl 2.8 mmol/L High 0.2-2.0 [facility] ([place] Comment on above: Performed By: #### L AC #### [place] [address] Lactic Acid Lvl 2.5 mmol/L High 0.2-2.0 [facility] ([place] Comment on above: Performed By: #### L AC #### [place] [address] Lactic Acid Lvl 1.8 mmol/L Normal 0.2-2.0 [facility] ([place] Comment on above: Performed By: #### L AC ####[place] [address] MGon 09-02-2023 Magnesium [Mass/Vol] 2.4 mg/dL Normal 1.6-2.4 [facility] ([place]) Comment on above: Performed By: #### P HOS, TROPHS, MG, CBC, ADIFF, ANEU, MYCO, CMP, CAION, GFR ####[address], [place] [address] No Panel Informationon 09-02 Microscopic examination of blood, culture Culture has been received in lab and is no growth to date. Routine cultures are held for 5 days. [facility] Culture Urine No growth at 48 hours. [facility] No Panel InformationOrdered By: Sandy Davis on 09-02-2023 Culture Respiratory with Gram Stain Normal respiratory renu present at 48 hours Sensitivity testing not indicated [facility] Comment on above: Requests for Mycopla sma, Legionella, Fungi, Mycobacteria, Chlamydia, and Viruses require ordering of those individual tests. GS Rare Polymorphonucle ar cells Rare Gram Positive Cocci Rare Gram Positive Rods [facility] Comment on above: Requests for Mycopla sma, Legionella, Fungi, Mycobacteria, Chlamydia, and Viruses require ordering of those individual tests. PBNPon 09-02-2023 Natriuretic peptide B (Bld) [Mass/Vol] 5863 pg/mL High 0-900 [facility] ([place] Comment on above: Result Comment: NT-p roBNP results of less than 300 pg/mL effectively rules out acute congestive heart failure with 99% negative predictive value. Performed By: #### P BNP #### [place] [id number] [address] [place] [address] PHOSon 09-02-2023 Phosphate [Mass/Vol] 3.6 mg/dL Normal 2.4-5.1 [facility] ([place]) Comment on above: Result Comment: No te - New Reference Range in effect 20 Performed By: #### P HOS, TROPHS, MG, CBC, ADIFF, ANEU, MYCO, CMP, CAION, GFR ####[place] [id number] [address] [place] [address] PROon 09-02-2023 INR Coag (PPP) [Relative time] 1.0 {INR} Normal [facility] ([place] Comment on above: Result Comment: [employer] (CHEST, 1992, [id number]) recommended therapeutic range for oral anticoagulant therapy is: LOW RISK: Prophylaxis of venous thrombosis INR: 2.0-3.0 Treatment of pulmonary embolism 2.0-3.0 Prevention of systemic embolism 2.0-3.0 HIGH RISK: Mechanical prosthetic valves 2.5-3.5 Performed By: #### L AC #### [place] [address] PT Coag (PPP) [Time] 11.8 s Normal 9.0-14.2 [facility] ([place]) Comment on above: Result Comment: Effe ctive 05/06/08, Protime results may be affected by some antibiotics (i.e. Ciprofloxacin, Azithromycin, Bactrim) which may potentiate the action of oral anticoagulants, with further increases in Protime/INR. Performed By: #### L AC #### [place] [address] TROPHSon 09-02-2023 Troponin I High Sensitivity 3010.17 ng/L High 0.00-34.00 [facility] ([place] Comment on above: Performed By: #### L AC #### [place] [address] Troponin I High Sensitivity 2152.97 ng/L High 0.00-34.00 [facility] ([place] Comment on above: Performed By: #### T ROP ####[place] [address] Troponin I High Sensitivity 1582.01 ng/L High 0.00-34.00 [facility] ([place] Comment on above: Performed By: #### L AC #### [place] [address] Troponin I High Sensitivity 926.56 ng/L High 0.00-34.00 [facility] ([place] Comment on above: Performed By: #### P HOS, TROPHS, MG, CBC, ADIFF, ANEU, MYCO, CMP, CAION, GFR ####[place] [address] US ABDOMEN LIMITEDon 023 US ABDOMEN LIMITED ORIGINAL EXAMINATION: LIMITED ABDOMINAL [id number]/11/2023 12:19 pm COMPARISON: None HISTORY: ORDERING SYSTEM [...] 09/02/2023 2:27:43 PM Ordering Provider: FRANCESCA Soto [facility] ([place]) XR CHEST 1 VIEWon 09-02-2023 XR CHEST [...] 09/02/2023 8:06:12 AM Ordering Provider: FRANCESCA Soto [facility] ([place]) Coronavirus 2019on 1 COVID 19 Result TAPER OPERATOR Normal Negative for COVID19 (SARS CoV2) by PCR. [facility] Comment on above: Result Comment: Nega tive for This test was developed and its performance characteristics determined by [facility] [place]. This test has been authorized by FDA [...] developed and its performance characteristics determined by [facility] [place]. This test has been authorized by FDA [...] developed and its performance characteristics determined by [facility] [place]. This test has been authorized by FDA under an Emergency Use Authorization (EUA). This test has been validated in accordance with the FDA's Guidance Document Policy for Diagnostics Testing in Laboratories Certified to Perform High Complexity Testing under CLIA prior to Emergency use Authorization for Coronavirus Disease 2019 during the Public Health Emergency issued on December 21, 2019. COVID 19 Source TAPER OPERATOR Normal [facility] Comment on above: Result Comment: Naso pharyngeal Corrected on 10/31 AT 0655: Previously reported as NASOPHARYNGEAL Swab Corrected on 10/31 AT 0655: Previously reported as NASOPHARYNGEAL Office Visit: new patienton 01-26-2017 Documentation of current medications (procedure) Done Invalid Interpretation Code [employer] Work Phone: Smoking cessation education (procedure) yes Invalid Interpretation Code [employer] Work Phone: Tobacco smoking status NHIS Never Invalid Interpretation Code [employer] Work Phone: Tobacco use [facility] Current every day smoker Invalid Interpretation Code [employer] Work Phone: [phone] Replaced Document: Tremayne BOLDEN Observationson 01-12-2017 electrocardiogram interpretation Sinus Bradycardia - Negative T-waves - Anterior ischemia. ABNORMAL Invalid Interpretation Code [employer] Work Phone: [phone] GE use only - for [employer] import when terms are not otherwise specified 443 ms Invalid Interpretation Code [employer] Work Phone: [phone] P wave axis, electrocardiogram 76 deg Invalid Interpretation Code [employer] Work Phone: [phone] IL interval, electrocardiogram 144 ms Invalid Interpretation Code [employer] Work Phone: [phone] Pulse (Heart Rate) 57 /min Invalid Interpretation Code [employer] Work Phone: [phone] QRS axis, electrocardiogram 65 deg Invalid Interpretation Code [employer] Work Phone: [phone] QRS duration, electrocardiogram 80 ms Invalid Interpretation Code [employer] Work Phone: [phone] QT interval, electrocardiogram new path ms Invalid Interpretation Code [employer] Work Phone: [phone] T wave axis, electrocardiogram 1 deg Invalid Interpretation Code [employer] Work Phone: [phone] Clinical Lists Update: Pre linotypist 01-06-2017 Left ventricular Ejection fraction 66 % Invalid Interpretation Code [employer] Work Phone: [phone] Vital Signs Date Time Vital Sign Value Performing Clinician Facility 07-26-2025 13:37-0400 Body temperature 97 [degF] Alfonso Ozuna TAPER OPERATOR-C Work Phone: [facility] 07-26-2025 13:37-0400 Diastolic blood pressure 82 mm[Hg] Alfonso Ozuna TAPER OPERATOR-C Work Phone: [facility] 07-26-2025 13:37-0400 Heart rate 72 /min Alfonso Ozuna TAPER OPERATOR-C Work Phone: [facility] 07-26-2025 13:37-0400 Respiratory rate 18 /min Alfonso Ozuna TAPER OPERATOR-C Work Phone: [facility] 07-26-2025 13:37-0400 SaO2% (BldA) [Mass fraction] 100 % Alfonso Ozuna TAPER OPERATOR-C Work Phone: [facility] 07-26-2025 13:37-0400 Systolic blood pressure 140 mm[Hg] Alofnso Ozuna TAPER OPERATOR-C Work Phone: [facility] 07-26-2025 06:00-0400 Body mass index (BMI) [Ratio] 17.2 kg/m2 Alfonso Ozuna TAPER OPERATOR-C Work Phone: [facility] 07-26-2025 06:00-0400 Body weight 45.6 kg Alfonsoteofilo Ozuna TAPER OPERATOR-C Work Phone: [facility] 07-25-2025 14:09-0400 Body height 162.56 cm Alfonso Ozuna TAPER OPERATOR-C Work Phone: [facility] 07-24-2025 16:39-0400 Inhaled oxygen flow rate 2 L/min Alfonso Ozuna TAPER OPERATOR-C Work Phone: [facility] 07-23-2025 07:25-0400 Inhaled oxygen concentration 99 % Alfonsoteofilo Ozuna TAPER OPERATOR-C Work Phone: [facility] 07-23-2025 01:15-0400 Heart rate 96 /min Alfonso Ozuna TAPER OPERATOR-C Work Phone: [facility] 07-23-2025 01:15-0400 Respiratory rate 18 /min Alfonso Ozuna TAPER OPERATOR-C Work Phone: [facility] 07-23-2025 00:00-0400 Inhaled oxygen flow rate 4 L/min Alfonso Ozuna TAPER OPERATOR-C Work Phone: [facility] 07-22-2025 23:00-0400 Diastolic blood pressure 67 mm[Hg] Alfonso Ozuna TAPER OPERATOR-C Work Phone: [facility] 07-22-2025 23:00-0400 SaO2% (BldA) [Mass fraction] 96 % Alfonso Ozuna TAPER OPERATOR-C Work Phone: [facility] 07-22-2025 23:00-0400 Systolic blood pressure 169 mm[Hg] Alfonso Ozuna TAPER OPERATOR-C Work Phone: [facility] 07-22-2025 22:00-0400 Body temperature 99.6 [degF] Alfonso Ozuna TAPER OPERATOR-C Work Phone: [facility] 07-22-2025 09:23-0400 Body height 162.56 cm Alfonso Laith TAPER OPERATOR-C Work Phone: [facility] 07-22-2025 09:23-0400 Body weight 50.7 kg Alfonso Ozuna TAPER OPERATOR-C Work Phone: [facility] 07-22-2025 06:46-0400 Inhaled oxygen concentration 91 % Alfonso Ozuna TAPER OPERATOR-C Work Phone: [facility] 07-22-2025 05:36-0400 Body mass index (BMI) [Ratio] 19.1 kg/m2 Alfonso Ozuna TAPER OPERATOR-C Work Phone: [facility] 06-18-2025 03:58-0400 SaO2% (BldA) [Mass fraction] 97.1 % JHONNY VALENCIA MD [facility] 06-17-2025 04:13-0400 SaO2% (BldA) [Mass fraction] 97.7 % JHONNY VALENCIA MD [facility] 06-16-2025 11:07-0400 SaO2% (BldA) [Mass fraction] 97.1 % JHONNY VALENCIA MD [facility] 11-09-2024 07:16-0500 Body temperature 98.06 [degF] JHONNY VALENCIA MD [facility] 11-09-2024 07:16-0500 Diastolic Blood Pressure Non-Invasive 72 mm[Hg] JHONNY VALENCIA MD [facility] 11-09-2024 07:16-0500 Heart rate 64 /min JHONNY VALENCIA MD [facility] 11-09-2024 07:16-0500 Respiratory rate 20 /min JHONNY VALENCIA MD [facility] 11-09-2024 07:16-0500 Systolic Blood Pressure Non-Invasive 161 mm[Hg] JHONNY VALENCIA MD [facility] 11-09-2024 06:53-0500 Heart rate 72 /min JHONNY VALENCIA MD [address] [place] [address] 11-09-2024 06:53-0500 Respiratory rate 20 /min JHONNY VALENCIA MD [facility] 11-09-2024 06:22-0500 Heart rate 63 /min JHONNY VALENCIA MD [address] 11-09-2024 04:03-0500 Body temperature 98.42 [degF] JHONNY VALENCIA MD [facility] 11-09-2024 04:03-0500 Diastolic Blood Pressure Non-Invasive 74 mm[Hg] JHONNY VALENCIA MD [facility] 11-09-2024 04:03-0500 Heart rate 63 /min JHONNY VALENCIA MD [facility] 11-09-2024 04:03-0500 Mean blood pressure 97 mm[Hg] JHONNY VALENCIA MD [facility] 11-09-2024 04:03-0500 Respiratory rate 22 /min JHONNY VALENCIA MD [facility] 11-09-2024 04:03-0500 Systolic Blood Pressure Non-Invasive 162 mm[Hg] JHONNY VALENCIA MD [facility] 11-09-2024 02:46-0500 Heart rate 63 /min JHONNY VALENCIA MD [facility] 11-09-2024 00:45-0500 Blood Pressure Cuff Size JHONNY VALENCIA MD [facility] 11-09-2024 00:45-0500 Blood Pressure Location JHONNY VALENCIA MD [facility] 11-09-2024 00:45-0500 Body temperature 98.06 [degF] JHONNY VALENCIA MD [facility] 11-09-2024 00:45-0500 Diastolic Blood Pressure Non-Invasive 63 mm[Hg] JHONNY VALENCIA MD [facility] 11-09-2024 00:45-0500 Heart rate 65 /min JHONNY VALENCIA MD [facility] 11-09-2024 00:45-0500 Reason For Taking VItal Signs JHONNY VALENCIA MD [facility] 11-09-2024 00:45-0500 Systolic Blood Pressure Non-Invasive 133 mm[Hg] JHONNY VALENCIA MD [facility] 11-08-2024 19:18-0500 Blood Pressure Cuff Size JHONNY VALENCIA MD [facility] 11-08-2024 19:18-0500 Blood Pressure Location JHONNY VALENCIA MD [facility] 11-08-2024 19:18-0500 Reason For Taking VItal Signs JHONNY VALENCIA MD [facility] 11-08-2024 14:34-0500 Reason For Taking VItal Signs JHONNY VALENCIA MD [facility] 11-08-2024 11:03-0500 Blood Pressure Cuff Size JHONNY VALENCIA MD [facility] 11-08-2024 11:03-0500 Blood Pressure Location JHONNY VALENCIA MD [facility] 11-08-2024 11:03-0500 Blood Pressure Method JHONNY VALENCIA MD [facility] 11-08-2024 07:29-0500 Blood Pressure Method JHONNY VALENCIA MD [facility] 11-08-2024 06:19-0500 Heart rate 70 /min JHONNY VALENCIA MD [facility] 11-07-2024 23:30-0500 Heart rate 54 /min JHONNY VALENCIA MD [facility] 11-07-2024 23:30-0500 Mean blood pressure 98 mm[Hg] JHONNY VALENCIA MD [facility] 11-07-2024 12:22-0500 Mean blood pressure 80 mm[Hg] JHONNY VALENCIA MD [facility] 11-07-2024 03:30-0500 Body temperature 97.34 [degF] JHONNY VALENCIA MD [facility] 11-06-2024 23:33-0500 Body temperature 97.52 [degF] JHONNY VALENCIA MD [facility] 11-06-2024 03:27-0500 Body temperature 98.06 [degF] JHONNY VALENCIA MD [facility] 11-06-2024 03:24-0500 SaO2% (BldA) [Mass fraction] 97.4 % JHONNY VALENCIA MD [facility] 11-05-2024 08:33-0500 Heart rate 107 /min JHONNY VALENCIA MD [facility] 11-05-2024 03:15-0500 SaO2% (BldA) [Mass fraction] 94.7 % JHONNY VALENCIA MD [facility] 11-04-2024 12:29-0500 SaO2% (BldA) [Mass fraction] 98.1 % JHONNY VALENCIA MD [facility] 11-04-2024 11:10-0500 Body height 157.5 cm JHONNY VALENCIA MD [facility] 11-04-2024 11:10-0500 Body weight 54.5 kg JHONNY VALENCIA MD [facility] 11-04-2024 11:10-0500 Body weight 21.97 kg/m2 JHONNY VALENCIA MD [facility] 10-03-2024 14:26-0500 Body height 162.6 cm Kenzie Callahanman HANDSTITCHING MACHINE [employer] RANGE TENDER Work Phone: 1(111)504-186571 [place] [address] 10-03-2024 14:26-0500 Body mass index (BMI) [Ratio] 18.02 kg/m2 Kenzie Marizol HANDSTITCHING MACHINE [employer] T[employer]ER Work Phone: 5(147)[phone] [place] [address] 10-03-2024 14:26-0500 Body weight 47.63 kg Kenzie Marizol HANDSTITCHING MACHINE [employer] R[employer] T[employer]ER Work Phone: 3([phone])448-163171 [place] [address] 10-03-2024 14:26-0500 Diastolic blood pressure 81 mm[Hg] Kenzie Marizol HANDSTITCHING MACHINE [employer] RANGE TENDER Work Phone: [phone])[phone] [place] [address] 10-03-2024 14:26-0500 Heart rate 60 /min Kenzie Marizol HANDSTITCHING MACHINE [employer] T[employer]ER Work Phone: 5(029)235-179671 [place] [address] 10-03-2024 14:26-0500 Systolic blood pressure 195 mm[Hg] Kenzie Marizol HANDSTITCHING MACHINE [employer] R[employer] T[employer]ER Work Phone: [phone])964-504371 [place] [address] 09-18-2023 12:02-0500 Body height 162.6 cm Elvin Newbill PA-C Work Phone: 6(684)125-821871 [place] [address] 09-18-2023 12:02-0500 Body mass index (BMI) [Ratio] 17.7 kg/m2 Elvin Newbill PA-C Work Phone: [phone](801)645-047671 [place] [address] 09-18-2023 12:02-0500 Body temperature 97.81 [degF] Elvin Newbill PA-C Work Phone: [facility] 09-18-2023 12:02-0500 Body weight 46.77 kg Elvin Newbill PA-C Work Phone: [facility] 09-18-2023 12:02-0500 Diastolic blood pressure 75 mm[Hg] Elvin Newbill PA-C Work Phone: [facility] 09-18-2023 12:02-0500 Heart rate 63 /min Elvin Newbill PA-C Work Phone: [facility] 09-18-2023 12:02-0500 SaO2% (BldA) [Mass fraction] 95 % Elvin Newbill PA-C Work Phone: [facility] 09-18-2023 12:02-0500 Systolic blood pressure 188 mm[Hg] Elvin Newbill PA-C Work Phone: [facility] 09-06-2023 16:00-0500 Heart rate 57 /min JHONNY VALENCIA MD [facility] 09-06-2023 14:28-0500 Body temperature 98.06 [degF] JHONNY VALENCIA MD [facility] 09-06-2023 14:28-0500 Diastolic Blood Pressure Non-Invasive 64 mm[Hg] JHONNY VALENCIA MD [facility] 09-06-2023 14:28-0500 Heart rate 60 /min JHONNY VALENCIA MD [facility] 09-06-2023 14:28-0500 Reason For Taking VItal Signs JHONNY VALENCIA MD [facility] 09-06-2023 14:28-0500 Respiratory rate 18 /min JHONNY VALENCIA MD [facility] 09-06-2023 14:28-0500 Systolic Blood Pressure Non-Invasive 138 mm[Hg] JHONNY VALENCIA MD [facility] 09-06-2023 12:38-0500 Heart rate 69 /min JHONNY VALENCIA MD [facility] 09-06-2023 12:38-0500 Respiratory rate 20 /min JHONNY VALENCIA MD [facility] 09-06-2023 11:05-0500 Blood Pressure Method JHONNY VALENCIA MD [facility] 09-06-2023 11:05-0500 Body temperature 97.88 [degF] JHONNY VALENCIA MD [facility] 09-06-2023 11:05-0500 Diastolic Blood Pressure Non-Invasive 76 mm[Hg] JHONNY VALENCIA MD [facility] 09-06-2023 11:05-0500 Heart rate 60 /min JHONNY VALENCIA MD [facility] 09-06-2023 11:05-0500 Respiratory rate 20 /min JHONNY VALENCIA MD [facility] 09-06-2023 11:05-0500 Systolic Blood Pressure Non-Invasive 138 mm[Hg] JHONNY VALENCIA MD [facility] 09-06-2023 08:50-0500 Heart rate 66 /min JHONNY VALENCIA MD [facility] 09-06-2023 08:45-0500 Blood Pressure Cuff Size JHONNY VALENCIA MD [facility] 09-06-2023 08:45-0500 Blood Pressure Location JHONNY VALENCIA MD [facility] 09-06-2023 08:45-0500 Blood Pressure Method JHONNY VALENCIA MD [facility] 09-06-2023 08:45-0500 Diastolic Blood Pressure Non-Invasive 74 mm[Hg] JHONNY VALENCIA MD [facility] 09-06-2023 08:45-0500 Systolic Blood Pressure Non-Invasive 136 mm[Hg] JHONNY VALENCIA MD [facility] 09-06-2023 07:18-0500 Blood Pressure Cuff Size JHONNY VALENCIA MD [facility] 09-06-2023 07:18-0500 Blood Pressure Location JHONNY VALENCIA MD [facility] 09-06-2023 07:18-0500 Blood Pressure Method JHONNY VALENCIA MD [facility] 09-06-2023 07:18-0500 Body temperature 97.88 [degF] JHONNY VALENCIA MD [facility] 09-06-2023 06:37-0500 Heart rate 62 /min JHONNY VALENCIA MD [facility] 09-06-2023 04:19-0500 Blood Pressure Location JHONNY VALENCIA MD [facility] 09-05-2023 23:52-0500 Blood Pressure Cuff Size JHONNY VALENCIA MD [facility] 09-05-2023 18:31-0500 Heart rate 63 /min JHONNY VALENCIA MD [facility] 09-05-2023 09:21-0500 Heart rate 78 /min JHONNY VALENCIA MD [facility] 09-05-2023 06:56-0500 Mean blood pressure 93 mm[Hg] JHONNY VALENCIA MD [facility] 09-04-2023 16:41-0500 Heart rate 70 /min JHONNY VALENCIA MD [facility] 09-03-2023 17:31-0500 SaO2% (BldA) [Mass fraction] 94.0 % JHONNY VALENCIA MD [facility] 09-03-2023 16:26-0500 Mean blood pressure 95 mm[Hg] JHONNY VALENCIA MD [facility] 09-03-2023 15:31-0500 Mean blood pressure 95 mm[Hg] JHONNY VALENCIA MD [facility] 09-03-2023 09:08-0500 Body height 157.5 cm JHONNY VALENCIA MD [facility] 09-03-2023 09:08-0500 Body weight 45.9 kg JHONNY VALENCIA MD [facility] 09-03-2023 09:08-0500 Body weight 18.5 kg/m2 JHONNY VALENCIA MD [facility] 09-03-2023 07:10-0500 SaO2% (BldA) [Mass fraction] 96.7 % JHONNY VALENCIA MD [employer] 09-02-2023 07:27-0500 SaO2% (BldA) [Mass fraction] 98.7 % JHONNY VALENCIA MD [employer] 01-26-2017 08:20-0400 BMI (Body Mass Index) 20.77 kg/m2 Rashidumi DeFinis [facility] Work Phone: 01-26-2017 08:20-0400 Body Temperature 97.8 [degF] Harumi DeFinis [facility] Work Phone: 01-26-2017 08:20-0400 BP Diastolic 65 mm[Hg] Harumi DeFinis [facility] Work Phone: 01-26-2017 08:20-0400 BP Systolic 125 mm[Hg] Harumi DeFinis [facility] Work Phone: 01-26-2017 08:20-0400 Height 162.56 cm Harumi DeFinis [facility] Work Phone: 01-26-2017 08:20-0400 Pulse [...] Start: 08-26-2025 ambulatory Alfonso Ozuna NP [facility] Start: 07-26-2025 End: 08-02-2025 ambulatory NANCY PAREDES [facility] Start: 07-26-2025 Dr. Kendall Doran MD -[facility] Start: 07-26-2025 Dr. Renee Encarnacion MD - [facility] Work Phone: Start: 07-25-2025 Dr. Renee Encarnacion MD - [facility] Work Phone: Start: 07-24-2025 Dr. Renee Encarnacion MD - [facility] Work Phone: Start: 07-23-2025 Dr. Renee Encarnacion MD - [facility] Work Phone: Start: 07-23-2025 Dr. Eleazar Valle DO -[facility] Start: 07-22-2025 Apple Carvalho TAPER OPERATOR- -[facility] Start: 07-22-2025 Dr. Renee Encarnacion MD - [facility] Work Phone: Start: 07-22-2025 Dr. Eleazar Valle DO -[facility] Start: 07-21-2025 Dr. Renee Encarnacion MD - [facility] Work Phone: Start: 07-21-2025 Dr. Eleazar Valle DO -[facility] Start: 07-20-2025 Dr. [facility]ard [facility]esay [facility] Work Phone: Start: 07-19-2025 Dr. Gerard Santos DO -[facility] Work Phone: Start: 07-18-2025 Dr. Gerard Santos DO -[facility] Work Phone: Start: 07-17-2025 Dr. Eleazar Valle DO -[facility] Start: 07-16-2025 ambulatory Alfonso Ozuna TAPER OPERATOR [facility] Start: 07-16-2025 ambulatory Jack Yan ty:[facility] Start: 07-16-2025 End: 07-26-2025 Evaluation and management of inpatient Alfonso Ozuna TAPER OPERATOR-C Work Phone: -Intensive Care Unit Start: 07-16-2025 End: 07-26-2025 Dr. [facility] Work Phone: Start: 07-02-2025 End: 08-06-2025 ambulatory CLAUDE PAREDES [facility] Start: 06-16-2025 End: 06-25-2025 Evaluation and management of inpatient JHONNY VALENCIA MD [facility] Start: 06-16-2025 End: 06-16-2025 Emergency department patient visit JACK MYERS [facility] Start: 03-12-2025 ambulatory ASTRID PAREDES [facility] Start: 03-07-2025 End: 03-07-2025 ambulatory ASTRID PARED[facility] Start: 11-10-2024 End: 11-17-2024 [facility] Start: 11-04-2024 End: 11-09-2024 Evaluation and management of inpatient JHONNY VALENCIA MD [facility] Start: 11-04-2024 End: 11-04-2024 Emergency department patient visit ALFONSO OZUNA [facility] Start: 10-21-2024 End: 10-23-2024 ambulatory KRYSTIAN STEELE [facility] Start: 10-09-2024 End: 10-10-2024 Emergency department patient visit JOSS ARMANDO [facility] Start: 10-03-2024 End: 10-06-2024 Evaluation and management of inpatient ALFONSO OZUNA [facility] Start: 10-03-2024 End: 10-03-2024 ambulatory [facility] Start: 10-03-2024 End: 10-03-2024 Encounter for general adult medical examination without abnormal findings [facility] Start: 10-03-2024 End: 10-03-2024 Office outpatient visit 25 minutes Kenzie B [facility] HANDSTITCHING MACHINE ARMHOLE FELLER-CLOTH DYEING RANGE TENDER Work Phone: [facility] Comment on above: Primary hypertension (Primary Dx); Congestive heart failure, unspecified HF chronicity, unspecified heart failure type; 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, unspecified vessel or lesion type; Chronic obstructive pulmonary disease, unspecified COPD type (Multi); Health maintenance examination Start: 10-03-2024 End: 10-03-2024 Patient encounter status Kenzie Sidney [facility] HANDSTITCHING MACHINE ARMHOLE FELLER-CLOTH DYEING RANGE TENDER Work Phone: [facility] Work Phone: Start: 09-18-2023 End: 09-18-2023 Office outpatient new 45 minutes Elvin Blanc PA-C Work Phone: [facility] Comment on above: Chronic obstructive pulmonary disease, unspecified COPD type (CMS/HCC) (Primary Dx); 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, unspecified vessel or lesion type (CMS/HCC); Primary hypertension; Congestive heart failure, unspecified HF chronicity, unspecified heart failure type (CMS/HCC) Start: 09-02-2023 ambulatory JACK Tian ty:[facility] Start: 09-02-2023 End: 09-06-2023 Evaluation and management of inpatient DO FERCHO VILLASEÑOR Facility:[facility] Start: 09-02-2023 End: 09-06-2023 Evaluation and management of inpatient JHONNY VALENCIA MD [facility] Start: 09-02-2023 ambulatory JACK Renee AMOL Cobosi ty:[facility] Start: 06-16-2021 Preoperative state Alfonso Laith TAPER OPERATOR-C Work Phone: [facility] Procedures Date Procedure Procedure Detail Performing Clinician Start: 07-26-2025 Estimated creatinine clearance Alfonso Laith TAPER OPERATOR-C Work Phone: Start: 07-26-2025 Mean corpuscular hem oglobin concentration determination Alfonso Laith TAPER OPERATOR-C Work Phone: Start: 07-26-2025 Neutrophil count Alfonso Laith TAPER OPERATOR-C Work Phone: Start: 07-26-2025 Nucleated red blood cell count procedure Alfonso Laith TAPER OPERATOR-C Work Phone: Start: 07-26-2025 Platelet mean volume determination Alfonso Laith TAPER OPERATOR-C Work Phone: Start: 07-25-2025 CT angiography of ch est with contrast Alfonso Laith TAPER OPERATOR-C Work Phone: Start: 07-25-2025 D-dimer assay, quantitative Alfonso Laith TAPER OPERATOR-C Work Phone: Start: 07-22-2025 Videoswallow 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: Start: 07-22-2025 Blood count smear mc rscp w/mnl difrntl wbc count Alfonso Laith TAPER OPERATOR-C Work Phone: Start: 07-22-2025 Estimated creatinine clearance Alfonso Laith TAPER OPERATOR-C Work Phone: Start: 07-22-2025 Mean corpuscular hem oglobin concentration determination Alfonso Laith TAPER OPERATOR-C Work Phone: Start: 07-22-2025 Nucleated red blood cell count procedure Alfonso Laith TAPER OPERATOR-C Work Phone: Start: 07-22-2025 Platelet mean volume determination Alfonso Ozuna TAPER OPERATOR-C Work Phone: Start: 07-19-2025 Plain chest X-ray Alfonso Ozuna TAPER OPERATOR-C Work Phone: Start: 07-19-2025 Carbon dioxide measu rement, partial pressure Alfonso Ozuna TAPER OPERATOR-C Work Phone: Start: 07-19-2025 Gases blood o2 satur ation only direct erik Alfonso Ozuna TAPER OPERATOR-C Work Phone: Start: 07-19-2025 Measurement of parti al pressure of oxygen in blood Alfonso Ozuna TAPER OPERATOR-C Work Phone: Start: 07-19-2025 Oxygen measurement Watson Ozuna TAPER OPERATOR-C Work Phone: Start: 07-19-2025 Oxygen saturation measurement Alfonso Ozuna TAPER OPERATOR-C Work Phone: Start: 07-18-2025 Hepatitis A virus an tibody, IgM type Alfonso Laith TAPER OPERATOR-C Work Phone: Start: 07-18-2025 Hepatitis B core ant ibody measurement, IgM type Alfonso Laith TAPER OPERATOR-C Work Phone: Start: 07-18-2025 Hepatitis C antibody measurement Alfonso Laith TAPER OPERATOR-C Work Phone: Start: 07-18-2025 Serum inorganic phos phate measurement Alfonso Laith TAPER OPERATOR-C Work Phone: Start: 07-17-2025 Plain chest X-ray Alfonso Ozuna TAPER OPERATOR-C Work Phone: Start: 07-16-2025 Bacterial nucleic acid assay Alfonso Laith TAPER OPERATOR-C Work Phone: Start: 07-16-2025 Blood culture Alfonso grijalva TAPER OPERATOR-C Work Phone: Start: 07-16-2025 Gram stain microscopy D mariusz Ozuna TAPER OPERATOR-C Work Phone: Start: 07-16-2025 Legionella pneumophi la antigen assay Alfonso Ozuna TAPER OPERATOR-C Work Phone: Start: 07-16-2025 Nucleic acid assay Watson Ozuna TAPER OPERATOR-C Work Phone: Start: 07-16-2025 Respiratory microbia l culture Alfonso Ozuna TAPER OPERATOR-C Work Phone: Start: 07-16-2025 End: 07-16-2025 Streptococcus pneumoniae antigen assay Alfonso Ozuna TAPER OPERATOR-C Work Phone: Start: 07-16-2025 Urine culture Alfonso Barclay is TAPER OPERATOR-C Work Phone: Start: 07-16-2025 Alfonso Rm s TAPER OPERATOR-C Work Phone: Start: 07-16-2025 Plain chest X-ray Alfonso Ozuna TAPER OPERATOR-C Work Phone: Start: 07-16-2025 Assay of lactate Alfonso zOuna TAPER OPERATOR-C Work Phone: Start: 07-16-2025 Lactic acid measurement Alfonso Laith TAPER OPERATOR-C Work Phone: Start: 07-16-2025 Urine microscopy: red cells Alfonso Ozuna TAPER OPERATOR-C Work Phone: Start: 07-16-2025 Urnls dip stick/tabl et reagent auto microscopy Alfonso Ozuna TAPER OPERATOR-C Work Phone: Start: 07-16-2025 CT of abdomen and pe lvis without contrast Alfonso Ozuna TAPER OPERATOR-C Work Phone: Start: 07-16-2025 Assay of triglycerides Alfonso Ozuna TAPER OPERATOR-C Work Phone: Start: 07-16-2025 Total cholesterol:HD L ratio measurement Alfonso Ozuna TAPER OPERATOR-C Work Phone: Start: 07-16-2025 Triglycerides measurement Alfonso Laith TAPER OPERATOR-C Work Phone: Start: 07-16-2025 CT angiography of ch est with contrast Alfonso Ozuna TAPER OPERATOR-C Work Phone: Start: 07-16-2025 CT of head without contrast Alfonso KOHLI Work Phone: Start: 06-16-2025 Urinalysis ALFONSO De Leon Comment on above: Result Comment: URIN ALYSIS Performed By: [id number] ####[facility],[address] [place] [id number] Start: 11-04-2024 Urinalysis ALFONSO De Leon Comment on above: Result Comment: URIN ALYSIS Performed By: [id number] ####[facility],[address] [place] [id number] Start: 09-04-2023 Echocardiography JHONNY VALENCIA MD Start: [...] dated 06/16/21 H/O: hysterectomy 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: History of percutane ous transluminal coronary angioplasty JHONNY VALENCIA MD Plan of Treatment Date Care Activity Detail Author Start: 2029 RSV High Risk: (Elderly (60+) or Population) (1 - 1-dose 75+ series) RSV High Risk: (Elderly (60+) or Population) (1 - 1-dose 75+ series) [facility] Start: 07-26-2025 Patient discharge [facility] Start: 07-25-2025 Referral to back hand [facility] Start: 07-25-2025 [facility] Start: 07-24-2025 Referral to gastroenterology service [facility] Start: 07-23-2025 Care planning and problem solving actions [facility] Start: 07-23-2025 Inhalation therapy procedure [facility] Start: 07-22-2025 Referral to service [facility] Start: 07-22-2025 Palliative care [facility] Start: 07-21-2025 End: 07-22-2025 [facility] Start: 07-21-2025 Oxygen therapy [facility] Start: 07-21-2025 Incentive spirometry [facility] Start: 07-21-2025 Speech therapy assessment [facility] Start: 07-21-2025 Referral for physical therapy [facility] Start: 07-21-2025 Referral to occupational therapist [facility] Start: 07-20-2025 [facility] Start: 07-18-2025 End: 07-19-2025 [facility] Start: 07-18-2025 Following clinical pathway protocol [facility] Start: 07-17-2025 End: 07-18-2025 [facility] Start: 07-17-2025 Referral to service [facility] Start: 07-16-2025 End: 07-17-2025 [facility] Start: 07-16-2025 Methicillin resistant Staphylococcus aureus screening test [facility] Start: 07-16-2025 Following clinical pathway protocol [facility] Start: 07-16-2025 Cardiac monitoring [facility] Start: 07-16-2025 Care regimes management [facility] Start: 07-16-2025 Catheterization of vein [facility] Start: 07-16-2025 Consultation [facility] Start: 07-16-2025 Continuous pulse oximetry [facility] Start: 07-16-2025 Notification of physician [facility] Start: 07-16-2025 Vital signs measurements [facility] Start: 07-16-2025 Verification routine [facility] Start: 07-16-2025 Admission procedure [facility] Start: 07-16-2025 Patient referral to dietitian [facility] Start: 10-03-2024 End: 10-03-2025 CBC W Auto Differential panel - Blood CBC and Auto Differential Lab Routine 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, unspecified vessel or lesion type (Multi) Expected: 10/03/2024 (Approximate), Expires: 10/03/2025 [facility] Work Phone: Comment on above: Expected: 10/03/2024 (Approximate), Expi res: 10/03/2025 Start: 10-03-2024 End: 10-03-2025 Comprehensive metabolic 2000 panel - Serum or Plasma Comprehensive Metabolic Panel Lab Routine Primary hypertension Expected: 10/03/2024 (Approximate), Expires: 10/03/2025 [facility] Work Phone: Comment on above: Expected: 10/03/2024 (Approximate), Expi res: 10/03/2025 Start: 10-03-2024 End: 10-03-2025 Lipid 1996 panel - Serum or Plasma Lipid Panel Lab Routine Health maintenance examination Expected: 10/03/2024 (Approximate), Expires: 10/03/2025 [facility] Work Phone: Comment on above: Expected: 10/03/2024 (Approximate), Expi res: 10/03/2025 Start: 10-03-2024 End: 10-03-2025 TSH with reflex to Free T4 if abnormal TSH with reflex to Free T4 if abnormal Lab Routine Health maintenance examination Expected: 10/03/2024 (Approximate), Expires: 10/03/2025 [facility] Work Phone: Comment on above: Expected: 10/03/2024 (Approximate), Expi res: 10/03/2025 Start: 10-03-2024 End: 10-03-2025 Heart Transthoracic Transthoracic Echo (TTE) Complete Echocardiography Routine Primary hypertension Congestive heart failure, unspecified HF chronicity, unspecified heart failure type (Multi) 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, unspecified vessel or lesion type (Multi) Expected: 10/03/2024, Expires: 10/03/2025 [facility] Work Phone: Comment on above: Expected: 10/03/2024, Expires: Start: 09-18-2024 End: 09-18-2024 Patient encounter procedure 09/18/2024 11:30 AM EST Office Visit [facility] [address] [place] [id number] Elvin Blanc PA-C [address] [place] [address] [facility] Start: 06-23-2024 COVID-19 Vaccine ( season) COVID-19 Vaccine ( season) [facility] Start: 06-23-2024 Influenza vaccination Influenza Vaccine (#1) [facility] Start: 09-18-2023 End: 09-18-2024 CBC panel - Blood by Automated count CBC Lab Routine Chronic obstructive pulmonary disease, unspecified COPD type (CMS/HCC) 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, unspecified vessel or lesion type (CMS/HCC) Primary hypertension Congestive heart failure, unspecified HF chronicity, unspecified heart failure type (CMS/HCC) Expected: 09/18/2023 (Approximate), Expires: 09/18/2024 [facility] Service Area Work Phone: Comment on above: Expected: 09/18/2023 (Approximate), Expi res: 09/18/2024 Start: 09-18-2023 End: 09-18-2024 Comprehensive metabolic 2000 panel - Serum or Plasma Comprehensive Metabolic Panel Lab Routine Chronic obstructive pulmonary disease, unspecified COPD type (CMS/HCC) 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, unspecified vessel or lesion type (CMS/HCC) Primary hypertension Congestive heart failure, unspecified HF chronicity, unspecified heart failure type (CMS/HCC) Expected: 09/18/2023 (Approximate), Expires: 09/18/2024 [facility] Work Phone: Comment on above: Expected: 09/18/2023 (Approximate), Expi res: 09/18/2024 Start: 09-18-2023 End: 09-18-2024 Lipid 1996 panel - Serum or Plasma Lipid Panel Lab Routine Chronic obstructive pulmonary disease, unspecified COPD type (CMS/HCC) 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, unspecified vessel or lesion type (CMS/HCC) Primary hypertension Congestive heart failure, unspecified HF chronicity, unspecified heart failure type (CMS/HCC) Expected: 09/18/2023 (Approximate), Expires: 09/18/2024 [facility] Work Phone: Comment on above: Expected: 09/18/2023 (Approximate), Expi res: 09/18/2024 Start: 09-18-2023 End: 09-18-2024 TSH with reflex to Free T4 if abnormal TSH with reflex to Free T4 if abnormal Lab Routine Chronic obstructive pulmonary disease, unspecified COPD type (CMS/HCC) 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 Work Phone: Start: 01-26-2017 End: 01-26-2017 CT Ldct scan for lung cancer screening CT Ldct scan for lung cancer screening [facility] Work Phone: Start: 01-26-2017 End: 01-26-2017 DMB DMB [facility] Work Phone: Start: 01-26-2017 End: 01-26-2017 Follow Up Appt 6 weeks Follow Up Appt 6 weeks [facility] Phone: Start: 01-26-2017 End: 01-26-2017 Pulmonary Function Test - complete Pulmonary Function Test - complete [facility] Work Phone: Start: 01-26-2017 End: 01-26-2017 Pulmonary stress test/simple Pulmonary stress testing; simple (eg, 6-minute walk) [facility] Work Phone: Start: 01-12-2017 End: 04-03-2017 Cardiac Rehab Card[facility] [address] [place], [address] [facility] Work Phone: Start: 01-12-2017 End: 01-12-2017 Cardiovascular stress test using treadmill Treadmill stress test (no imaging) [facility] Work Phone: Start: 01-12-2017 End: 03-24-2017 Electrocardiogram, complete EKG (In office) [facility] Work Phone: Start: 01-12-2017 End: 01-12-2017 Follow Up Appt 3 months Follow Up Appt 3 months [facility] Work Phone: Start: 01-12-2017 End: 01-12-2017 MMM MMM [facility] Work Phone: Start: 02-23-2004 Zoster Vaccines (1 of 2) Zoster Vaccines (1 of 2) [facility] Start: 1994 Screening for malignant neoplasm of breast Mammogram [facility] Start: 02-23-1976 DTaP/Tdap/Td Vaccines (1 - Tdap) DTaP/Tdap/Td Vaccines (1 - Tdap) [facility] Start: 02-23-1972 Hepatitis C screening Hepatitis C Screening [facility] Start: 1954 Lipid panel Lipid Panel [facility] Start: 1954 Medicare Annual Wellness Visit Medicare Annual Wellness Visit (AWV) [facility] Start: 1954 Screening for malignant neoplasm of colon [facility] Start: 1954 Screening for osteoporosis Bone Density Scan [facility] Anion gap in Serum o r Plasma [facility] Anion gap in Serum o r Plasma [facility] Anion gap in Serum o r Plasma [facility] Anion gap in Serum o r Plasma [facility] Anion gap in Serum o r Plasma [facility] Anion gap in Serum o r Plasma [facility] Anion gap in Serum o r Plasma [facility] BUN/Creatinine ratio [facility] BUN/Creatinine ratio [facility] BUN/Creatinine ratio [facility] BUN/Creatinine ratio [facility] BUN/Creatinine ratio [facility] BUN/Creatinine ratio [facility] BUN/Creatinine ratio [facility] Calcium [Mass/volume ] in Serum or Plasma [facility] Calcium [Mass/volume ] in Serum or Plasma [facility] Calcium [Mass/volume ] in Serum or Plasma [facility] Calcium [Mass/volume ] in Serum or Plasma [facility] Calcium [Mass/volume ] in Serum or Plasma [facility] Calcium [Mass/volume ] in Serum or Plasma [facility] Calcium [Mass/volume ] in Serum or Plasma [facility] Carbon dioxide, tota l [Moles/volume] in Central venous blood [facility] Carbon dioxide, tota l [Moles/volume] in Central venous blood [facility] Carbon dioxide, tota l [Moles/volume] in Central venous blood [facility] Carbon dioxide, tota l [Moles/volume] in Central venous blood [facility] Carbon dioxide, tota l [Moles/volume] in Central venous blood [facility] Carbon dioxide, tota l [Moles/volume] in Central venous blood [facility] Carbon dioxide, tota l [Moles/volume] in Central venous blood [facility] Creatinine [Mass/vol ume] in Serum or Plasma [facility] Creatinine [Mass/vol ume] in Serum or Plasma [facility] Creatinine [Mass/vol ume] in Serum or Plasma [facility] Creatinine [Mass/vol ume] in Serum or Plasma [facility] Creatinine [Mass/vol ume] in Serum or Plasma [facility] Creatinine [Mass/vol ume] in Serum or Plasma [facility] Creatinine [Mass/vol ume] in Serum or Plasma [facility] Erythrocyte mean corpuscular volume determination [facility] Erythrocyte mean corpuscular volume determination [facility] Erythrocyte mean corpuscular volume determination [facility] Erythrocyte mean corpuscular volume determination [facility] Erythrocyte mean corpuscular volume determination [facility] Erythrocyte mean corpuscular volume determination [facility] Erythrocyte mean corpuscular volume determination [facility] Glucose [Mass/volume ] in Serum or Plasma [facility] Glucose [Mass/volume ] in Serum or Plasma [facility] Glucose [Mass/volume ] in Serum or Plasma [facility] Glucose [Mass/volume ] in Serum or Plasma [facility] Glucose [Mass/volume ] in Serum or Plasma [facility] Glucose [Mass/volume ] in Serum or Plasma [facility] Glucose [Mass/volume ] in Serum or Plasma [facility] Hematocrit [Volume Fraction] of Blood [facility] Hematocrit [Volume Fraction] of Blood [facility] Hematocrit [Volume Fraction] of Blood [facility] Hematocrit [Volume Fraction] of Blood [facility] Hematocrit [Volume Fraction] of Blood [facility] Hematocrit [Volume Fraction] of Blood [facility] Hematocrit [Volume Fraction] of Blood [facility] Hemoglobin [Mass/vol ume] in Blood [facility] Hemoglobin [Mass/vol ume] in Blood [facility] Hemoglobin [Mass/vol ume] in Blood [facility] Hemoglobin [Mass/vol ume] in Blood [facility] Hemoglobin [Mass/vol ume] in Blood [facility] Hemoglobin [Mass/vol ume] in Blood [facility] Hemoglobin [Mass/vol ume] in Blood [facility] Leukocytes [#/volume ] in Blood [facility] Leukocytes [#/volume ] in Blood [facility] Leukocytes [#/volume ] in Blood [facility] Leukocytes [#/volume ] in Blood [facility] Leukocytes [#/volume ] in Blood [facility] Leukocytes [#/volume ] in Blood [facility] Leukocytes [#/volume ] in Blood [facility] Mean corpuscular hemoglobin concentration determination [facility] Mean corpuscular hemoglobin concentration determination [facility] Mean corpuscular hemoglobin concentration determination [facility] Mean corpuscular hemoglobin concentration determination [facility] Mean corpuscular hemoglobin concentration determination [facility] Mean corpuscular hemoglobin concentration determination [facility] Mean corpuscular hemoglobin concentration determination [facility] Mean corpuscular hemoglobin determination [facility] Mean corpuscular hemoglobin determination [facility] Mean corpuscular hemoglobin determination [facility] Mean corpuscular hemoglobin determination [facility] Mean corpuscular hemoglobin determination [facility] Mean corpuscular hemoglobin determination [facility] Mean corpuscular hemoglobin determination [facility] Measurement of renal function [facility] Measurement of renal function [facility] Measurement of renal function [facility] Measurement of renal function [facility] Measurement of renal function [facility] Measurement of renal function [facility] Measurement of renal function [facility] Neutrophil count [facility] Neutrophil count [facility] Neutrophil count [facility] Neutrophil count [facility] Neutrophil count [facility] Neutrophil count [facility] Neutrophil count [facility] Neutrophil percent differential count [facility] Neutrophil percent differential count [facility] Neutrophil percent differential count [facility] Neutrophil percent differential count [facility] Neutrophil percent differential count [facility] Neutrophil percent differential count [facility] Neutrophil percent differential count [facility] Patient Education [facility] Work Phone: Platelets [#/volume] in Blood [facility] Platelets [#/volume] in Blood [facility] Platelets [#/volume] in Blood [facility] Platelets [#/volume] in Blood [facility] Platelets [#/volume] in Blood [facility] Platelets [#/volume] in Blood [facility] Platelets [#/volume] in Blood [facility] Potassium measurement [facility] Potassium measurement [facility] Potassium measurement [facility] Potassium measurement [facility] Potassium measurement [facility] Potassium measurement [facility] Potassium measurement [facility] Red blood cell count [facility] Red blood cell count [facility] Red blood cell count [facility] Red blood cell count [facility] Red blood cell count [facility] Red blood cell count [facility] Red blood cell count [facility] Red cell distributio n width determination [facility] Red cell distributio n width determination [facility] Red cell distributio n width determination [facility] Red cell distributio n width determination [facility] Red cell distributio n width determination [facility] Red cell distributio n width determination [facility] Red cell distributio n width determination [facility] Serum chloride measurement [facility] Serum chloride measurement [facility] Serum chloride measurement [facility] Serum chloride measurement [facility] Serum chloride measurement [facility] Serum chloride measurement [facility] Serum chloride measurement [facility] Sodium measurement [facility] Sodium measurement [facility] Sodium measurement [facility] Sodium measurement [facility] Sodium measurement [facility] Sodium measurement [facility] Sodium measurement [facility] Urea nitrogen [Mass/volume] in Serum or Plasma [facility] Urea nitrogen [Mass/volume] in Serum or Plasma [facility] Urea nitrogen [Mass/volume] in Serum or Plasma [facility] Urea nitrogen [Mass/volume] in Serum or Plasma [facility] Urea nitrogen [Mass/volume] in Serum or Plasma [facility] Urea nitrogen [Mass/volume] in Serum or Plasma [facility] Urea nitrogen [Mass/volume] in Serum or Plasma [facility] Immunizations Immunization Date Immunization Notes Care Provider [facility] 11-09-2024 Seasonal trivalent influenza vaccine, adjuvanted, preservative free JHONNY VALENCIA MD [facility] 10-11-2021 SARS-CoV-2 (COVID-19 ) [id number] vaccine JHONNY VALENCIA MD [facility] 11-05-2020 pneumococcal conjuga te vaccine, 13 valraoul VALENCIA MD [facility] 11-05-2020 influenza virus vacc ine, unspecified formulation Elvin Blanc PA-C Work Phone: [facility] 09-23-2019 pneumococcal polysaccharide vaccine, 23 valent JHONNY VALENCIA MD [facility] Payers Date Payer Category Payer Self-pay [id number] 2025 Private Health Insurance [id number] 2024 Private Health Insurance [id number] 2024 Medicare supplementa l policy (as second payer) AARP [id number] 2024 Unknown [id number] 2024 Medicare (Managed Care) [place] [id number] 2024 Medicare [id number] 2023 Medicare [id number] 2023 Medicare [id number] 2023 Unknown [id number] 2023 Unknown [employer] [facility] [employer] [facility] [id number] 2023-Present [address] [place] [address] [id number] .[id number] 1955 Unknown [id number] 2.16.840.1.561352.3.579.2 .627 1955 Unknown [id number] 2.16.840.1.557465.3.579.2 .627 1954 Unknown [id number] 2.16.840.1.606234.3.579.2 .627 1954 Unknown [id number] 2.16.840.1.301040.3.579.2 .1244 1954 Unknown [id number] 2.16.840.1.180826.3.579.2 .651 1954 Unknown [id number] 2.16.840.1.230154.3.579.2 .651 1954 Unknown [id number] 2.16.840.1.388278.3.579.2 .651 1954 Unknown [id number] 2.16.840.1.327287.3.579.2 .651 1954 Unknown [id number] 2.16.840.1.932811.3.579.2 .651 1954 Unknown [id number] 2.16.840.1.448232.3.579.2 .651 1954 Unknown [id number] 2.16.840.1.472406.3.579.2 .651 1954 Unknown [id number] 2.16.840.1.982536.3.579.2 .651 1954 Unknown [id number] 2.16.840.1.409805.3.579.2 .65 1954 Unknown [id number] 2.16.840.1.255032.3.579.2 .65 1954 Unknown [id number] 2.16.840.1.927446.3.579.2 .651 Unknown [id number] 2.16840.1.350098.3.579.2 .462 Unknown [id number] 2.16840.1.316965.3.579.2 .462 Unknown [id number] 2.16840.1.763513.3.579.2 .462 Unknown [id number] 2.840.1.627126.3.579.2 .462 Unknown [id number] 2.16840.1.196596.3.579.2 .462 Unknown [id number] 2.16840.1.505881.3.579.2 .462 Unknown [id number] 2.16840.1.786223.3.579.2 .462 Unknown [id number] 2.16840.1.869834.3.579.2 .462 Unknown [id number] 2.16840.1.494007.3.579.2 .462 Unknown [id number] 2.16.840.1.429906.3.579.2 .462 Unknown [id number] 2.16.840.1.024422.3.579.2 .462 Unknown [id number] 2.16.840.1.535023.3.579.2 .462 Unknown [id number] 2.16.840.1.621417.3.579.2 .462 Unknown [id number] 2.16840.1.666034.3.579.2 .462 Unknown [id number] 2.16.840.1.111975.3.579.2 .462 Unknown [id number] 2.16.840.1.045342.3.579.2 .462 Unknown [id number] 2.16.840.1.050678.3.579.2 .462 Unknown [id number] 2.16.840.1.041442.3.579.2 .462 Unknown [id number] 2.16.840.1.781168.3.579.2 .462 Unknown [id number] 2.16.840.1.526173.3.579.2 .462 Unknown [id number] 2.16.840.1.285646.3.579.2 .462 Unknown [id number] 2.16.840.1.430961.3.579.2 .462 Social History Date Type Detail Facility Tobacco smoking status [facility] Start: 09-18-2023 End: 07-21-2025 Tobacco smoking status GAIS Smokes tobacco daily [facility] Work Phone: History of tobacco use Cigarette Smoker [facility] Work Phone: Start: 09-18-2023 Tobacco use and exposure Smokeless tobacco non-user [facility] Work Phone: Start: 09-18-2023 End: 10-03-2024 Alcohol intake Lifetime non-drinker (finding) [facility] Work Phone: Start: 09-18-2023 History of Social function [facility] Work Phone: Start: 09-18-2023 Tobacco use panel [facility] Work Phone: Start: 1955 Sex Assigned At Not on file [facility] Work Phone: Start: 09-08-2023 End: 10-03-2024 Exposure to SARS-CoV-2 (event) Not sure [facility] Start: 2024 Tobacco smoking status Light tobacco smoker (finding) [facility] Tobacco smoking status Heavy tobacco smoker (finding) [facility] Start: 06-18-2011 Sex Female (finding) [facility] Start: 1955 Sex Assigned At Female [facility] Goals Date Patient Goal Desired Activity /State Functional Status Date Assessment Result Facility 07-26-2025 Functional status Ambulates [facility] Work Phone: 07-23-2025 Functional status Chair [facility] Work Phone: 11-09-2024 Functional Status Room check performed [facility] 11-09-2024 Functional Status [facility] 11-09-2024 Functional Status [facility] 11-09-2024 Functional Status 3am-7am [facility] 11-09-2024 Functional Status [facility] 11-09-2024 Functional Status Independent [facility] 11-08-2024 Functional Status Activity Josué tance Independent [facility] 11-08-2024 Functional Status [facility] 11-08-2024 Functional Status Dinner Percent 100 [facility] 11-08-2024 Functional Status [facility] 11-08-2024 Functional Status bilateral knee high removed/off [facility] 11-07-2024 Functional Status [facility] 11-06-2024 Functional Status Min A [facility] 11-05-2024 Functional Status Special Call D evice Unable to use call device [facility] 11-05-2024 Functional Status [facility] 11-05-2024 Functional Status [facility] 11-05-2024 Functional Status NPO Status Maintained [facility] 11-05-2024 Functional Status Single level home [facility] 11-05-2024 Functional Status [facility] 11-05-2024 Functional Status [facility] 11-04-2024 Functional Status Sensory Deficits None [facility] 09-06-2023 Functional Status Room check performed [facility] 09-05-2023 Functional Status [facility] 09-05-2023 Functional Status Done [facility] 09-05-2023 Functional Status 90 [facility] 09-05-2023 Functional Status [facility] 09-04-2023 Functional Status Single level home [facility] 09-04-2023 Functional Status [facility] 09-04-2023 Functional Status Transparent silicone dr essing [facility] 09-04-2023 Functional Status [facility] 09-04-2023 Functional Status Ambulation Up with assi stance [facility] 09-03-2023 Functional Status [facility] 09-03-2023 Functional Status [facility] 09-03-2023 Functional Status [facility] 09-03-2023 Functional Status [facility] 09-03-2023 Functional Status [facility] 09-03-2023 Functional Status Maintained [facility] 09-03-2023 Functional Status [facility] 09-03-2023 Functional Status [facility] Mental Status Date Assessment Result Facility 07-26-2025 Cognitive function Voice/Name [facility] Work Phone: 07-23-2025 Cognitive function Voice/Name [facility] Work Phone: 11-09-2024 [facility] Status [facility] 11-07-2024 Mental Status [facility] 09-06-2023 Mental Status [facility]-05-[facility]23 Mental Status [facility] Clinical Notes 09-02-2023 to 07-26-2025 Note Date & Type Note Facility 07-26-2025 Discharge summary Note Date/Time July 26, 2025 12:44pm [facility] Medical Records Department [address] [place] [address] Transfer to [facility] MR#: [id number] Acct: [id number] Name: ZABRINA HSU Rep #:[id number] : 1955 70 From: Renee Encarnacion MD PCP: SEUN Alvarez Status:ADM IN Certification of patient admission REQUIRED AT TIME OF ADMISSION. I CERTIFY THAT POST-HOSPITAL ECF SERVICES ARE REQUIRED TO BE GIVEN ON AN IN-PATIENT BASIS BECAUSE OF THE ABOVE NAMED PATIENT'S NEED FOR RESIDENTIAL CARE ON A CONTINUING BASIS FOR THE [...] Patient now agreeable to going to a intermediate. Case management on board.She did get precert [...] Ozuna NP Consulting Providers: Jack Zuniga; Gerard Sanots; Gregory Galvan; Danish Crawford; Earline Camargo; Analy [...] 75 mg PO DAILY OXYGEN - Supplemental ([facility] INFORM[facility] USE ONLY) Patient Comments: 2 LPM at all times Discontinued spironolactone 25 mg tablet 25 mg PO DAILY Referrals / Follow Up: Alfonso Ozuna NP, NP-C [Primary Care Provider, [facility]] - Within 1 Week Adriana Wiggins NP-C [Med Staff - [facility] Prof, Pulmonology] - 08/26/25 1:15 pm Disposition Disposition (needs filled in before D/C Order can be placed): [facility] Facility (2) Pneumonia Qualifiers: Pneumonia type: due to unspecified organism Laterality: bilateral Lung location: unspecified part of lung Qualified Code(s): J18.9 - Pneumonia, unspecified organism 07/26/25 1244 <Electronically signed by Renee Encarnacion MD> Cosigner Signature (if applicable): CC: TAPER OPERATOR-C Alfonso Ozuna; TAPER OPERATOR-C Earline Camargo; TAPER OPERATOR-C Apple Carvalho; TAPER OPERATOR-C Analy Davis; Dr. Mark Garrido MD; Dr. Marcos Alfredo MD; Dr. Nathan Bill MD; Dr. Jack oV MD; Dr. Jack Zuniga DO; Dr. Eleazar [...] Garcia MD; Dr. Alonso Mcknight MD; Dr. Coleen Tejada MD; Dr. Tess Dietrich MD; Dr. Emmett Brown DO;Dr. Ramon Mckeon DO; Dr. Catia Mercer MD; Dr. Davon Mcguire MD; Dr. Mau Hoover MD; Dr. Cathie Cantu MD; SHEILA Ellington; Danish Crawford DO ~ [facility] Work Phone: 1(853) 689-856510-04-2025 Discharge summary Author Renee [facility] Note Date/Time July 26, 2025 4: 01pm [facility] Medical Records Department [address] [place] [address] Discharge Summary 07/26/25 1244 MR#: [id number] Acct: [id number] Name: ZABRINA HSU Rep #:[id number] : 1955 70 From: Renee Encarnacion MD PCP: SEUN Alvarez Status:DIS IN Location: [place] [address] Providers Date of Admission: 07/16/25 Date of Discharge: 07/26/25 Primary Care Physician: SEUN Alvarez Consultations 07/16/25 07:56 Consult: Director Global Sales / Pulmonary Medicine Routine Consulting Provider: Intensivists/Pulmonary [...] Notification: Verbal Reason For Visit: AE COPD, [id number] RESP FAILURE Diagnosis Discharge Diagnosis (1) Acute [...] Patient now agreeable to going to a intermediate. Case management on board.She did get precert [...] PO DAILY heart 07/17/25 OXYGEN - Supplemental ([facility] INFORMATIONAL USE ONLY) COPD 07/18/25 amlodipine [...] on her metoprolol. [facility]. She is follow-up with [...] % (Auto) 59.4, Lymph % (Auto) 27.0, [place] % (Auto) 9.7, Eos % (Auto) 0.9, [...] - Final 07/16/25 08:25 Urine Catheter - Madirgal Streptococcus pneumoniae Antigen (M - Final 07/16/25 03:44 Mucosa - Nose SARS-CoV-2, Influenza & RSV (PCR) - Final Radiography Diagnostic Testing: Radiology Impression Chest CTA 07/25/25 17:41 IMPRESSION: 1. No evidence of pulmonary embolism. 2. No focal lung consolidation. 3. Interval resolution of bilateral pleural effusions. 4. Atherosclerotic disease of the thoracic aorta. Reading Location: [id number] D/C Instructions Discharge Activity: Return to Normal [...] 75 mg PO DAILY OXYGEN - Supplemental ([facility] INFORMATIONAL USE ONLY) Patient Comments: 2 LPM at all times Discontinued spironolactone 25 mg tablet 25 mg PO DAILY Referrals / Follow Up: Alfonso Ozuna NP TAPER OPERATOR-C [Primary Care Provider, [facility]] - Within 1 Week Adriana Wiggins NP-C [Med Staff - [facility] Prof, Pulmonology] - 08/26/25 1:15 pm Disposition Disposition (needs filled in before D/C Order can be placed): [facility] Facility Charges/Coding Visit Charges Inpatient E&M: 95119 Disch Hosp >30min 07/26/25 1719 <Electronically signed by Renee Encarnacion MD> Cosigner Signature (if applicable): CC: SEUN Ozuna; Dr. Renee Encarnacion MD~ Signed [facility] Work Phone: 1(611) 876-898810-04-2025 Hospital Discharge instructionsAdditional Instructions Date of Discharge: 07/26/25[facility] Work Phone: 1(292) 754-974510-04-2025 [facility]10-03-2025 Progress [facility] Note Date/Time July 25, 2025 6: 48pm [facility] Medical Records Department [address] [place] [address] Progress Note 07/25/25 1515 MR#: [id number] Acct: [id number] Name: ZABRINA HSU Rep #:[id number] : 1955 70 From: Renee Encarnacion MD PCP: SEUN Alvarez Status:ADM IN Location: [place] [address] Subjective Subjective Patient seen and examined with her nurse by her bedside. She was lying comfortably in bed and had no active complaints. She had an uneventful night. Review of systems otherwise negative. She did get pre-CERT today and plan was to discharge her, but she became tachycardic with her HR going up to the 130 [id number] with movement. Discharge therefore canceled.s Objective Data [...] % (Auto) 60.9, Lymph % (Auto) 25.5, [place] % (Auto) 10.5 H, Eos % (Auto) [...] Patient now agreeable to going to a intermediate. Case management on board.She did get precert today, but has remained tachycardic with HR going up to the 140s. Charges/Coding Visit Charges Inpatient E&M: 00731 Subs Hosp L2 07/25/25 1848 <Electronically signed by Renee Encarnacion MD> Renee Encarnacion MD Cosigner Signature (if applicable): CC: ~ Signed [facility] Work Phone: 1(768) 746-795910-03-2025 Radiology Diagnostic study [facility]10-02-2025 Progress note Author Renee [facility] Note Date/Time July 24, 2025 5: 26pm [facility] Medical Records Department [address] [place] [address] Progress Note 07/24/25 1712 MR#: [id number] Acct: [id number] Name: ZABRINA HSU Rep #:[id number] : 1955 70 From: Renee Encarnacion MD PCP: SEUN Alvarez Status:ADM IN Location: [place] [address] Subjective Subjective Patient seen and examined. She [...] % (Auto) 60.9, Lymph % (Auto) 26.7, [place] % (Auto) 10.0, Eos % (Auto) 0.6, [...] Patient now agreeable to going to a intermediate. Case management on board. Charges/Coding Visit Charges Inpatient E&M: 03933 Subs Hosp L2 07/24/25 1726 <Electronically signed by Renee Encarnacion MD> Renee Encarnacion MD Cosigner Signature (if applicable): CC: ~ Signed [facility] Work Phone: 1(379) 348-649510-01-2025 Progress note [facility] Note Date/Time July 23, 2025 5: 12pm [facility] Medical Records Department [address] [place] [address] Progress Note 07/23/25 1212 MR#: [id number] Acct: [id number] Name: ZABRINA HSU Rep #:[id number] : [...] % (Auto) 67.5, Lymph % (Auto)17.3 L, [place] % (Auto) 13.0 H, Eos % (Auto) [...] to PCU Charges/Coding Visit Charges Inpatient E&M: 10728 Subs Hosp L2 07/23/25 1712 <Electronically signed by Renee Encarnacion MD> Renee Encarnacion MD Cosigner Signature (if applicable): CC: ~ Signed [facility] Work Phone: 1(312) 310-279810-01-2025 Progress note Author Eleazar Valle [facility] Note Date/Time July 23, 2025 8: 40am [facility] Medical Records Department [address] [place] [address] Progress Note - Director Global Sales 07/23/25 0738 MR#: [id number] Acct: [id number] Name: ZABRINA HSU Rep #:[id number] : [...] the patient. This note was generated with [employer] dictation software. It may contain incorrectwords, spelling, [...] % (Auto) 67.5, Lymph % (Auto)17.3 L, [place] % (Auto) 13.0 H, Eos % (Auto) [...] Physician: Jack Zuniga Performed By: Jake Miguel [facility] Chest X-Ray 07/16/25 09:05 IMPRESSION: Tubes and lines in position. There interstitial infiltrates in the perihilar region bilaterally and in the left upper lung. Reading Location: [facility] Chest X-Ray 07/17/25 05:10 IMPRESSION: Tubes and lines in position. There are perihilar infiltrates in the right and left, improved. Reading Location: [facility] Rhythm Strip Rhythm Strip: Sinus Tach Rate: [...] affect normal Charges/Coding Visit Charges Inpatient E&M: 68189 Subs Hosp L2 07/23/25 0840 <Electronically signed by Eleazar Valle DO> Cosigner Signature (if applicable): CC: ~ Signed [facility] Work Phone: 1([phone]) 599-214709-30-2025 Progress note Author Renee Encarnacion [facility] Note Date/Time July 22, 2025 6:37pm [facility] Medical Records Department [address] [place] [address] Progress Note 07/22/25 1112 MR#: [id number] Acct: [id number] Name: ZABRINA HSU Rep #:[id number] : [...] 84.7 H, Lymph % (Auto) 8.4 L, [place] % (Auto) 4.1, Eos % (Auto) 0.0, [...] prophylaxis: Lovenox Charges/Coding Visit Charges Inpatient E&M: 14922 Subs Hosp L2 07/22/25 4872 <Electronically signed by Renee Encarnacion MD> Renee [...] Signature (if applicable): Date cc: ~* Signed [facility] Work Phone: 1([phone]) 594-900909-30-2025 Consult note Author Apple 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 Charges/Coding Palliative Care Palliative Care: 19793 New Pt Consult 80+ min HPI Current [...] as clinical picture evolves. I did update health and social care teacher about patient and family's decision about outpatient [...] of hysterectomy and OA who presents to [facility] ER complaining ofSOB. Ms. Hsu was noted [...] a Healthcare Power No 07/16/25 07:58 of Sound Designer? Do You Want Additional Declined 07/16/25 07:58 Information on Advanced Directives or Healthcare Proxy/DPOA comments: Patient states that they do have legal paperworkand that her , her would be her decision-maker if she is unable to make decisions for herself. Psychosocial/Spiritual Information Living situation/Marital status: Spoke spoke with and 16-year-old grandson. Geographic location: [place] Supports: Family Voodoo/Grazyna or spiritual preference: Restorationism Prior functional status: Patient was unable to [...] 84.7 H, Lymph % (Auto) 8.4 L, [place] % (Auto) 4.1, Eos % (Auto) 0.0, [...] a result of this Palliative Care Encounter: [[id number],[id number], [id number] ] minutes were spent in total for [...] care conversations as clinical picture evolves. 07/22/25 6713 <Electronically signed by Apple KOHLI> Cosigner Signature (if applicable): CC: SEUN Ozuna~ Signed [facility] Work Phone: 1(237) 941-500209-30-2025 Procedure [facility] 07-22-2025 Procedure [facility]09-30-2025 Progress note Author Eleazar Valle [facility] Note Date/Time July 22, 2025 8:48am [facility] Medical Records Department [address] [place] [address] Progress Note - Director Global Sales 07/22/25 0843 MR#: [id number] Acct: [id number] Name: ZABRINA HSU Rep #:[id number] : [...] of diet. This note was generated with [employer] dictation software. It may contain incorrectwords, spelling, [...] 84.7 H, Lymph % (Auto) 8.4 L, [place] % (Auto) 4.1, Eos % (Auto) 0.0, [...] in the left upper lung. Reading Location: [facility] Chest X-Ray 07/17/25 05:10 IMPRESSION: Tubes and lines in position. There are perihilar infiltrates in the right and left, improved. Reading Location: [facility] Physical Exam Const alert, oriented x3 and [...] affect normal Charges/Coding Visit Charges Inpatient E&M: 76581 Subs Hosp L3 07/22/25 0848 <Electronically signed by Eleazar Valle DO> Cosigner Signature (if applicable): CC: ~ Signed [facility] Work Phone: 1(249) 493-155209-29-2025 Progress note Author Earline Camargo [facility] Note Date/Time July 21, 2025 9:09pm [facility] Medical Records Department [address] [place] [address] Progress Note - Hospitalist 07/21/252058 MR#: [id number] Acct: [id number] Name: ZABRNIA HSU Rep #:[id number] : 1955 70 [...] 0.33 07/21/252108 <Electronically signed by Earline Camargo TAPER OPERATORAaronC> Cosigner Signature (if applicable): CC: ~ Signed [facility] Work Phone: [phone]) 102-304009-29-2025 Progress note Author Renee Alysha [facility] Note Date/Time July 21, 2025 5:28pm [facility] Medical Records Department [address] [place] [address] Progress Note 07/21/25 1406 MR#: [id number] Acct: [id number] Name: ZABRINA HSU Rep #:[id number] : [...] 83.2 H, Lymph % (Auto) 8.8 L, [place] % (Auto) 5.8, Eos % (Auto) 0.1, [...] prophylaxis: Lovenox Charges/Coding Visit Charges Inpatient E&M: 79591 Subs Hosp L2 07/21/25 1728 <Electronically signed by Renee Encarnacion MD> Renee Encarnacion MD Cosigner Signature (if applicable): CC: ~ Signed [facility] Work Phone: [phone]) [phone] Progress note Author Eleazar Valle [facility] Note Date/Time July 21, 2025 10:38am [facility] Medical Records Department [address] [place] [address] [place] [address] Progress Note - Director Global Sales 07/21/25 0734 MR#: [id number] Acct: [id number] Name: ZABRINA HSU Rep #:[id number] : [...] 83.2 H, Lymph % (Auto) 8.8 L, [place] % (Auto) 5.8, Eos % (Auto) 0.1, [...] in the left upper lung. Reading Location: [facility] Chest X-Ray 07/17/25 05:10 IMPRESSION: Tubes and lines in position. There are perihilar infiltrates in the right and left, improved. Reading Location: [facility] Physical Exam Const Constitutional Narrative: The patient [...] follow simple commands. Charges/Coding Procedures Hospitalists Procedures: 85606 Critical Care 1st Hr 07/21/25 1038 <Electronically signed by Eleazar Valle DO> Cosigner Signature (if applicable): CC: ~ Signed [facility] Work Phone: [phone] 350-911609-29-2025 Consult note Author Mateo Gonzales [facility] Note Date/Time July 21, 2025 7:34am [facility] Medical Records Department [address] [place] [address] Pharmacokinetic/Renal -Consult 07/20/25 1137 MR#: [id number] Acct: [id number] Name: ZABRINA HSU Rep #:[id number] : [...] Date Eleazar Valle DO CC: ~ Signed [facility] Work Phone: [phone] Progress note Author Gerard Santos [facility] Note Date/Time July 20, 2025 11:57am [facility] Medical Records Department [address] [place] [address] Progress Note - Hospitalist 07/20/25 0836 MR#: [id number] Acct: [id number] Name: ZABRINA HSU Rep #:[id number] : [...] (Auto) 89.3 H, Lymph % (Auto)5.2 L, [place] % (Auto) 4.5, Eos % (Auto) 0.0, [...] mmHg @ 86% on * ventilator * [facility] for vent mgmt * 2/2 to AECOPD, [...] IV daily. Charges/Coding Visit Charges Inpatient E&M: 11933 Subs Hosp L2 07/20/25 1157 <Electronically signed by Gerard Santos DO> Cosigner Signature (if applicable): CC: ~ Signed [facility] Work Phone: [phone]) [phone] Progress note Author Reid Murillo [facility] Note Date/Time July 20, 2025 9:07am [facility] Medical Records Department [address] [facility] [place] [address] Progress Note - Director Global Sales 07/20/25 09 MR#: [id number] Acct: [id number] Name: ZABRINA HSU Rep #:[id number] : [...] 07/16/25 07:59 07/20/25 06:02 IV 0 mls/hr .[id number] PRN Infusion Saline Flush Sodium Chloride 250 mls @ 15 mls/hr 07/16/25 07:59 IV .N54U09C PRN Additional IVPB Infusion Fentanyl 100 mls [...] Af 1.2 Blake Liquid GT Not Given .C96C60G TIMOT[facility] Propofol 1,000 mg in 100 mls @ 3.06 mls/hr 07/18/25 01:15 07/20/25 00:41 Diprivan CONT INF Not Given .Q12H [facility] Protocol 10 MCG/KG/MIN Vancomycin HCl 1,250 mg/ 275 mls @ 167 mls/hr 07/18/25 12:00 07/19/25 13:10 Sodium Chloride IV Infused Q24H [facility] Infusion Dexmedetomidine HCl 1,000 mcg/ 250 mls @ 6.375 mls/hr 07/19/25 22:00 07/20/2507:00 Sodium Chloride CONT INF 1.5 mcg/kg/hr .B68A96R TIMOT[facility] 19.1 mls/hr Protocol Titration 0.5 MCG/KG/HR [...] 10:00 Quetiapine 25 Mg Tablet GT BID [facility] Protocol Sodium Chloride 10 - 40 ml [...] (Auto) 89.3 H, Lymph % (Auto)5.2 L, [place] % (Auto) 4.5, Eos % (Auto) 0.0, [...] Cosigner Signature (if applicable): CC: ~ Signed [facility] Work Phone: [phone] Progress note Author Gerard Santos [facility] Note Date/Time July 19, 2025 12:35pm [facility] Medical Records Department [address] [place] [address] Progress Note - Hospitalist 07/19/25 0758 MR#: [id number] Acct: [id number] Name: ZABRINA HSU Rep #:[id number] : [...] 90.1 H, Lymph % (Auto) 4.7 L, [place] % (Auto) 4.3, Eos % (Auto) 0.1, [...] detailed. Improvement in perihilar densities. Reading Location: [facility] Physical Exam Const Constitutional Narrative: intubated. sedated. [...] IV daily. Charges/Coding Visit Charges Inpatient E&M: 16839 Subs Hosp L2 07/19/25 1230 <Electronically signed by Gerard Santos DO> Cosigner Signature (if applicable): CC: ~ Signed [facility] Work Phone: [phone] Progress note Author Reid Murillo [facility] Note Date/Time July 19, 2025 11:55am [facility] Medical Records Department [address] [place] [address] Progress Note - Director Global Sales 07/19/25 1144 MR#: [id number] Acct: [id number] Name: ZABRINA HSU Rep #:[id number] : [...] 07/16/25 07:59 07/19/25 07:27 IV 0 mls/hr .I97H54O PRN Infusion Saline Flush Sodium Chloride 250 mls @ 15 mls/hr 07/16/25 07:59 IV .Y81G15C PRN Additional IVPB Infusion Fentanyl 100 mls [...] 11:29 Sodium Chloride CONT INF 0.9 mcg/kg/hr .C16M51T [facility] 11.4 mls/hr Protocol Titration 0.5 MCG/KG/HR Enteral Nutritional Formula 1,000 mls @ 45 mls/hr 07/17/25 10:05 07/19/25 09:30 Vital Af 1.2 Blake Liquid GT 45 mls/hr .D35G14C TIMOTHY Administration Propofol 1,000 mg in 100 mls @ 3.03 mls/hr 07/18/25 01:15 07/19/25 11:27 Diprivan CONT INF 0 mcg/kg/min .Q12H TIM[facility] 0 mls/hr Protocol Titration 10 MCG/KG/MIN Vancomycin HCl 1,250 mg/ 275 mls @ 167 mls/hr 07/18/25 12:00 07/19/25 11:27 Sodium Chloride IV 167 mls/hr Q24H TIOMTHY Administration Insulin Glargine 10 unit 07/19/25 10:00 07/19/25 09:12 Insulin Glargine-Yfgn 100 Unit/Ml Pen SC 10 unit DAILY TIMOTHY Administration Insulin Human Lispro 0 unit 07/17/25 12:00 07/19/25 11:26 Insulin Lispro 100 Unit/Ml Insuln.Pen SC Not Given Q6H [facility] Protocol Methylprednisolone Sodium Succinate 60 mg 07/16/25 [...] 90.1 H, Lymph % (Auto) 4.7 L, [place] % (Auto) 4.3, Eos % (Auto) 0.1, [...] detailed. Improvement in perihilar densities. Reading Location: [facility] Assessment and Plan . Assessment and plan: [facility] Medical Records Department [address] [place] [address] Progress Note - Director Global Sales 07/18/25 0739 MR#: [id number] Acct: [id number] Name: ZABRINA HSU Rep #: [id number] : 1955 70 From: Eleazar Valle DO [...] Cosigner Signature (if applicable): CC: ~ Signed [facility] Work Phone: [phone] Radiology Diagnostic study [facility]09-26-2025 Progress note Author Gerard Santos [facility] Note Date/Time July 18, 2025 12:30pm [facility] Medical Records Department [address] [place] [address] Progress Note - Hospitalist 07/18/2507 MR#: [id number] Acct: [id number] Name: DAVEZABRINA L Rep #:[id number] : [...] RDW Coeff of Shivam 15.1 H, Plt Nmaxw525, MPV 9.7, Immature Gran % (Auto) 0.400, Neut % (Auto) 84.1 H, Lymph % (Auto)9.1 L, [place] % (Auto) 6.3, Eos % (Auto) 0.0, [...] 88.5 H, Lymph % (Auto) 5.9 L, [place] % (Auto) 4.7, Eos % (Auto) 0.0, [...] IV daily. Charges/Coding Visit Charges Inpatient E&M: 89403 Subs Hosp L2 07/18/25 1230 <Electronically signed by Gerard Santos DO> Cosigner Signature (if applicable): CC: ~ Signed [facility] Work Phone: [phone] Consult note Author Noelle Yañez [facility] Note Date/Time July 18, 2025 12:13pm [facility] Medical Records Department [address] [facility] [place] [address] Pharmacokinetic/Renal -Consult 07/18/25 1128 MR#: [id number] Acct: [id number] Name: ZABRINA HSU Rep #:[id number] : [...] (if applicable): Date Eleazar Valle: ~ Signed [facility] Work Phone: [phone] Progress note Author Eleazar Valle [facility] Note Date/Time July 18, 2025 9:00am [facility] Medical Records Department [address] [place] [address] Progress Note - Director Global Sales 07/18/25 0739 MR#: [id number] Acct: [id number] Name: ZABRINA HSU Rep #:[id number] : [...] RDW Coeff of Shivam 15.1 H, Plt Qwkyd817, MPV 9.7, Immature Gran % (Auto) 0.400, Neut % (Auto) 84.1 H, Lymph % (Auto)9.1 L, [place] % (Auto) 6.3, Eos % (Auto) 0.0, [...] 88.5 H, Lymph % (Auto) 5.9 L, [place] % (Auto) 4.7, Eos % (Auto) 0.0, [...] in the left upper lung. Reading Location: [facility] Chest X-Ray 07/17/25 05:10 IMPRESSION: Tubes and lines in position. There are perihilar infiltrates in the right and left, improved. Reading Location: [facility] Physical Exam Const Constitutional Narrative: The patient [...] sedated on vent Charges/Coding Procedures Hospitalists Procedures: 28407 Critical Care 1st Hr 07/18/25 0900 <Electronically signed by Eleazar Valle DO> Cosigner Signature (if applicable): CC: ~ Signed [facility] Work Phone: [phone] 922-659109-25-2025 Progress note Author Gerard Santos [facility] Note Date/Time July 17, 2025 12:53pm [facility] Medical Records Department [address] [place] [address] Progress Note - Hospitalist 07/17/25 07 MR#: [id number] Acct: [id number] Name: ZABRINA HSU Rep #:[id number] : [...] Clarity Clear, Urine pH 7.0, Ur Specific [place] 1.005, Urine Protein 30 H, Urine Glucose [...] Diffuse atherosclerosis Degenerative bony changes Reading Location: [id number] Chest X-Ray 07/16/25 09:05 IMPRESSION: Tubes and lines in position. There interstitial infiltrates in the perihilar region bilaterally and in the left upper lung. Reading Location: [facility] Chest X-Ray 07/17/25 05:10 IMPRESSION: Tubes and lines in position. There are perihilar infiltrates in the right and left, improved. Reading [facility] Physical Exam Const Constitutional Narrative: agitated but [...] at bedside. Charges/Coding Visit Charges Inpatient E&M: 68453 Subs Hosp L2 07/17/25 1253 <Electronically signed by Gerard Santos DO> Cosigner Signature (if applicable): CC: ~ Signed [facility] Work Phone: [phone]) 712-171709-25-2025 Progress note Author Eleazar Valle [facility] Note Date/Time July 17, 2025 10:00am [facility] Medical Records Department [address] [place] [address] Progress Note - Director Global Sales 07/17/25 0737 MR#: [id number] Acct: [id number] Name: ZABRINA HSU Rep #:[id number] : [...] Clarity Clear, Urine pH 7.0, Ur Specific [place] 1.005, Urine Protein 30 H, Urine Glucose [...] in the left upper lung. Reading Location: [facility] Chest X-Ray 07/17/25 05:10 IMPRESSION: Tubes and lines in position. There are perihilar infiltrates in the right and left, improved. Reading Location: [facility] Physical Exam Const Constitutional Narrative: The patient [...] sedated on vent Charges/Coding Procedures Hospitalists Procedures: 43438 Critical Care 1st Hr 07/17/25 1000 <Electronically signed by Eleazar Valle DO> Cosigner Signature (if applicable): CC: ~ Signed [facility] Work Phone: [phone] Radiology Diagnostic study [facility]09-24-2025 History and physical note Author Jack Haile [facility] Note Date/Time July 16, 2025 7:05pm [facility] Medical Records Department [address] [place] [address] H&P Exam - Hospitalist 07/16/25 0413 MR#: [id number] Acct: [id number] Name: ZABRINA HSU Rep #:[id number] : [...] history of hysterectomy and OAwho presents to [facility] complaining of SOB. Ms. Hsu was [...] is expected to extend beyond 2 midnights. 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 Home Medications [...] 30.6 L, Lymph % (Auto) 56.5 H, [place] % (Auto) 6.4, Eos % (Auto) 2.7, [...] 368 H, Calcium 8.5, Total Bilirubin 0.34, YUD901 H, ALT 118 H, Alkaline Phosphatase 163 [...] Sharif Blood Gas Notified Time 04:00:19 Imaging [facility] Imaging Services [address] [place], [place] [address] Brain/Head without Contrast MR#: [id number] Acct: [id number] Name: ZABRINA HSU Rep #: [id number] : 1955 F 70 From: Shimon Santos MD PCP: SEUN Alvarez Status: REG ER Study: Brain/Head without Contrast Date of Exam: 07/16/25 Exam# [id number] Ordering Dr: Bernardo Sharif DO EXAM: NONCONTRAST [...] to exclude an acute component. Reading Location: [facility] CC: SEUN Ozuna; Dr. Bernardo Sharif DO ~ Vegetable Worker: Signed ----- [facility] Imaging Services [address] [place] [address] CTA Chest W/WO Contrast MR#: [id number] Acct: [id number] Name: ZABRINA HSU Rep #: [id number] : 1955 F 70 From: Aleksandr Levine MD PCP: SEUN Alvarez Status: REG ER Study: CTA Chest W/WO Contrast Date of Exam: 07/16/25 Exam# [id number] Ordering Dr: Bernardo Sharif DO PROCEDURE: CTA [...] position No suspicious adenopathy Degenerative bony changes [place] Alert: ET tube tip in the SADAF The critical findings in the findings and impression above were relayed directlyby me by telephone to Bernardo Sharif on 07/16/2025 at 6:56 am with readback verification. Reading Location: [id number] CC: SEUN Ozuna; Dr. Bernardo Sharif DO ~ Vegetable Worker: Signed Assessment & Plan Assessment/Plan (1) COPD [...] responsive hypotension Charges/Coding Visit Charges Inpatient E&M: 66948 Init Hosp L3 07/16/251904 <Electronically signed by Jack Zuniga DO> Cosigner Signature (if applicable): CC: SEUN Ozuna; Dr. Jack Zuniga DO~ Signed [facility] Work Phone: [phone] 199-346709-24-2025 Progress note Author Gerard Santos [facility] Note Date/Time July 16, 2025 12:12pm [facility] Medical Records Department [address] [place] [address] Progress Note - Hospitalist 07/16/25 1200 MR#: [id number] Acct: [id number] Name: ZABRINA HSU Rep #:[id number] : [...] 30.6 L, Lymph % (Auto) 56.5 H, [place] % (Auto) 6.4, Eos % (Auto) 2.7, [...] AST 158 H, ALT 118 H, Alkaline Niuoyzigbwi276 H, Total Creatine Kinase 126, Troponin T [...] Clarity Clear, Urine pH 7.0, Ur Specific [place] 1.005, Urine Protein 30 H, Urine Glucose [...] position No suspicious adenopathy Degenerative bony changes [place] Alert: ET tube tip in the SADAF The critical findings in the findings and impression above were relayed directlyby me by telephone to Bernardo Sharif on 07/16/2025 at 6:56 am with readback verification. Reading Location: [id number] Echocardiogram 07/16/25 06:31 Interpretation Summary Mild concentric [...] Diffuse atherosclerosis Degenerative bony changes Reading Location: [id number] Chest X-Ray 07/16/25 09:05 IMPRESSION: Tubes and [...] midnight.) 07/16/25 1212 <Electronically signed by Gerard aSntos DO> Cosigner Signature (if applicable): CC: ~ Signed [facility] Work Phone: [phone]) 802-794109-24-2025 Consult note Author Noelle Yañez [facility] Note Date/Time July 16, 2025 10:25am [facility] Medical Records Department [address] [place] [address] Pharmacokinetic/Renal -Consult 07/16/25 09 MR#: [id number] Acct: [id number] Name: ZABRINA HSU Rep #:[id number] : [...] Date Eleazar Valle DO CC: ~ Signed [facility] Work Phone: 1([phone]) [phone] Consult note Author Eleazar Valle [facility] Note Date/Time July 16, 2025 10:10am [facility] Medical Records Department [address] [place] [address] Consultation - Director Global Sales 07/16/25811 MR#: [id number] Acct: [id number] Name: DAVEZABRINA L Rep #:[id number] : [...] antimicrobials and Lasix. [facility]. 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 Reading Location: [facility] Abdomen/Pelvis CT 07/16/25 06:40 IMPRESSION: No suspicious solid organ abnormality, there is atrophy of the right kidney compared to the left but no obstructive uropathy or suspicious solid renal lesion. Retained stool throughout the colon which may be impacted No free intraperitoneal fluid, air, or suspicious adenopathy NG tube tip in the body of the stomach Diffuse atherosclerosis Degenerative bony changes Reading Location: [facility] Charges/Coding Procedures Hospitalists Procedures: 39416 Critical Care 1st Hr 07/16/25 1010 <Electronically signed by Eleazar Valle DO> Cosigner Signature (if applicable): CC: SEUN Ozuna~ Signed [facility] Work Phone: 1(259) [phone] Radiology Diagnostic study [facility]09-24-2025 Discharge summary Author Bernardo Sharif [facility] Note Date/Time July 16, 2025 7:03am [facility] Medical Records Department [address] [place] [address] Emergency Department Summary 07/16/25 MR#: [id number] Acct: [id number] Name: DAVEZABRINA L Rep #:[id number] : 1955 70 From: Bernardo Small PCP: SEUN Alvarez Status:REG ER Location: ED HPI History of Present Illness Chief Complaint: Shortness of Breath PFSH PFSH Medical History Anxiety Apical variant hypertrophic cardiomyopathy 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 Depression Essential [...] does not use caffeine: Yes Type: coffee [facility] MDM MDM Narrative Medical decision making [...] Reviewed recent hospitalization. Patient was admitted to [facility] from 06/16/2025 until 06/25/2025 for acute on chronic respiratory failure hypoxia. Acute pulmonary edema, NSTEMI, COPD exacerbation. This time patient suffered respiratory failure required mechanical ventilation. Factors affecting care: As per HPI Social determinants of health: none History obtained from others: EMS Consults: Internal Medicine (Dr. Haile) [facility] Narrative: The patient was initially hypertensive [...] Patient is appropriate for admission here at [facility] to intensive care unit. Dr. Hess added [...] to ICU This note was generated with [employer] dictation software. It may contain incorrectwords, spelling, [...] 90 3RF Primary Care Provider: Alfonso Ozuna TAPER OPERATOR Referrals: Alfonso Ozuna NP, TAPER OPERATOR-C [Primary Care Provider, Family Practice] Print Language: Zimbabwean What to do if you have Problems For any increased pain, shortness of breath, bleeding, nausea or vomiting, chestpain, or any unexpected problems, contact your Primary Care Provider. Call [facility] ([phone]) or report to the closest Emergency Room. Call 911 if necessary. 07/16/25 0703 <Electronically signed by Bernardo Sharif DO> Cosigner Signature (if applicable): CC: TAPER OPERATORAaronC Alfonso Ozuna ~ Signed [facility] Work Phone: 1(133) 456-853309-24-2025 Evaluation note* Diagnosis Onset Date Resolution Status [...] COPD exacerbation chronic Septemb er 2024 6:21am [facility] Work Phone: 1(950) 188-970509-24-2025 NoteAcceptable Specimen? Acceptable Specimen(Evaluation not needed) Gram Stain 2+ White Blood Cells Rare Epithelial cells Rare Gram positive cocciWBlanchard Valley Health System [facility]ard [facility] HospitalComment on above:Performed By: #### M100.2400, M100.2000, M100.678, M100.2200 ####[facility] [address] [place], [address](107) 592-561109-24-2025 Radiology Diagnostic study [facility]09-24-2025 Radiology Diagnostic study [facility]09-24-2025 Radiology Diagnostic study note [facility]09-24-2025 History and physical note Author Jack Haile [facility] Note Date/Time July 16, 2025 7:05pm [facility] Medical Records Department [address] [place] [address] H&P Exam - Hospitalist 07/16/25 0413 MR#: [id number] Acct: [id number] Name: ZABRINA HSU Rep #:[id number] : [...] history of hysterectomy and OAwho presents to [facility] ER complaining of SOB. Ms. Hsu was [...] is expected to extend beyond 2 midnights. 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 Home Medications [...] 30.6 L, Lymph % (Auto) 56.5 H, [place] % (Auto) 6.4, Eos % (Auto) 2.7, [...] 368 H, Calcium 8.5, Total Bilirubin 0.34, ZLE390 H, ALT 118 H, Alkaline Phosphatase 163 [...] Sharif Blood Gas Notified Time 04:00:19 Imaging [facility] Imaging Services [address] [place] [address] Brain/Head without Contrast MR#: [id number] Acct: [id number] Name: ZABRINA HSU Rep #: [id number] : 1955 F 70 From: Shimon Santos MD PCP: SEUN Alvarez Status: REG ER Study: Brain/Head without Contrast Date of Exam: 07/16/25 Exam# [id number] Ordering Dr: Bernardo Sharif DO EXAM: NONCONTRAST [...] SEUN Ozuna; Dr. Bernardo Sharif DO ~ Vegetable Worker: Signed ----- [facility] Imaging Services [address] [place], [place] [address] CTA Chest W/WO Contrast MR#: [id number] Acct: [id number] Name: ZABRINA HSU Rep #: [id number] : 1955 F 70 From: Aleksandr Levine MD PCP: SEUN Alvarez Status: [facility] Study: CTA Chest W/WO Contrast Date of Exam: 07/16/25 Exam# [id number] Ordering Dr: Bernardo Sharif DO PROCEDURE: CTA [...] position No suspicious adenopathy Degenerative bony changes [place] Alert: ET tube tip in the SADAF The critical findings in the findings and impression above were relayed directlyby me by telephone to Bernardo Sharif on 07/16/2025 at 6:56 am with readback verification. Reading Location: [id number] CC: TAPER OPERATORNuvia Ozuna; Dr. Bernardo Sharif DO ~ Vegetable Worker: Signed Assessment & Plan Assessment/Plan (1) COPD [...] responsive hypotension Charges/Coding Visit Charges Inpatient E&M: 32297 Init Hosp L3 07/16/251904 <Electronically signed by Jack Zuniga DO> Cosigner Signature (if applicable): CC: SEUN Ozuna; Dr. Jcak Zuniga DO~ Signed [facility] Work Phone: 1(395) 699-949609-03-2025 Cardiology Progress note Subjective Patient seen and [...] Complete by Nursing Assessment/Plan CAD s/p PCI ([facility] 06/24/2025 -significant LAD disease status post [...] to 35% with wall motion abnormality. Underwent [facility] yesterday showing significant LAD disease with PCI to LAD and moderate disease in LCx, which is recommended to manage medically. Patient tolerated DAPT with aspirin and Plavix. Continue Coreg, Entresto and spironolactone. Okay to be discharged from cardiac standpoint. Digitally Signed by HARSH CEDILLO MD on 06/25/2025 01:39 PM [facility]Wwpkpspm03-86-4364 Note Discharge Instructions Thank you for allowing [...] 2 weeks Where:[address] [facility] [place] [address]- Follow Up with Cardiac Rehab- [facility] Where:[facility] [address] [place] [address]- Additional Information: Cardiac rehabilitation is a vital part of your recovery and long-term hearthealth following your hospital stay. It is a medically supervised exercise and education program designed to improve your physical fitness, manage heart-related risk factors, and support emotional well-being. A cardiac rehab steam powerplant supervisor will contact you soon to schedule your follow-up appointment. If you have any questions please call [phone]. Follow Up with [facility], When:Within 1-2 days Additional Information: [facility] has been referred to provide your home care services upon discharge; a nurse will contact you upon your return home to arrange for your start of care; please call with any further questions or concerns. Follow Up with ALFONSO OZUNA When:Within 1-2 days Where:[address] [place] [address] [phone] Additional Information: Please call the office to [...] a day Duration: 3 Days Pickup at [facility] New spironolactone (Aldactone 25 mg oral tablet) 1 tab(s) by mouth Once a day with a meal Duration: 90 Days Refills: 3 Pickup at [facility] Changed aspirin (aspirin 81 mg oral delayed release tablet) 1 tab(s) by mouth Every day Duration: 90 Days Pickup at [facility] Changed clopidogrel (Plavix 75 mg oral tablet) 1 tab(s) by mouth Once a day Duration: 90 Days Pickup at [facility] Changed furosemide (Lasix 40 mg oral tablet) 1 tab(s) by mouth Once a day Duration: 90 Days Pickup at [facility] Unchanged albuterol (albuterol MDI (90 mcg/ inh) [...] Two (2) times a day Pharmacy Information [facility]: [address] [place], [place] [id number] [phone] Please take this list to your next [...] You should not use spironolactone if you [place]'s disease, high levels of potassium in your [...] allergic to it, or if you have: [place]'s disease (an adrenal gland disorder); high levels [...] may report side effects to FDA at 7-172-ASL-8298. What other drugs will affect spironolactone? Using [...] drugs may affect spironolactone, including prescription and ooft-snm-voafmac medicines, vitamins, and herbal products. Not all [...] to ensure that the information provided by Art.com. ('Multum') is accurate, up-to-date, and complete, but no guarantee is made to that effect. Drug information contained herein may be time sensitive. ClickMagic information has been compiled for use by healthcare practitioners and consumers in the [place] and therefore ClickMagic does not warrant that uses outside of the [place] are appropriate, unless specifically indicated otherwise. TraceLinks drug information does not endorse drugs, diagnose patients or recommend therapy. TraceLinks drug information isan informational resource designed to [...] effective or appropriate for any given patient. [facility] does not assume any responsibility for any aspect of healthcare administered with the aid of information [facility] provides. The information contained herein is not intended to cover all possible uses, directions, precautions, warnings, drug interactions, allergic reactions, or adverse effects. If you have questions about the drugs you are taking, check with your doctor, nurse or pharmacist. Copyright 9725-8303 [facility]. Version: 08.23. Revision Date: 01/04/2020. Education Materials [...] a prescription, and some you can buy ixnu-oxd-ownwzgl. Some medicines may contain a drug called [...] and encourage you. Call a phone quitline (8-462-HDAXNOW), reach out to support groups, or work [...] 08/05/2010 Document Revised: 12/27/2019 Document Reviewed: 12/28/2019 vIPtela Patient Education 2020 Appscio. HEART CATHETERIZATION/PCI (radial) Discharge Instructions DIET Drink [...] Document Reviewed: 10/10/2014 ExitCare Patient Information 2015 Synarc. This information is not intended to replace advicegiven to you by your health care provider. Make sure you discuss any questions you have with your health care provider. Additional Information VACCINATE! IT SAVES LIVES! Members of the community who have not yet received the COVID-19 vaccine and would like to receive it can visit one of [facility] vaccine clinics. There are many vaccine clinic locations within the [facility]. For locations and available times, please visit https://gettheshot.coronavirus.[place].gov/. It is important to note that some COVID mobile vaccine clinics are held outdoors and may be canceled in rainy or stormy conditions. To learn more about pediatric vaccinations (ages 5-11), we invite you to visit the [facility] webpage. https://www.[facility].org/pages/1480-Ghqgg-Hraacvhjdzo-Egeetqpihq-Jozmv-Mxo stions.htmlTo learn more about the COVID-19 vaccine, we invite you to visit the CDC website for a list of frequently asked questions.https://www.cdc.gov/coronavirus/2019-ncov/vaccines/faq.html [employer] Patient Portal Access Instructions: Stay connected with your healthcare team and access your personal medical information anytime with the [employer] Patient Portal. Please follow the directions below to create your [employer] account: 1.Access the email account you provided upon registration to the hospital/physician office.2.Look for an invitation email from [facility].3.Open the email and access the invitation link: AcceptInvitation to [facility]4.Fill in the required lr to create your account. To access your account, visit [email or web address]. Click the blue button labeled Access Patient [...] who you will allowto register on the [facility] Patient Portal for access to your information. You can also access the [facility] Patient Portal on the [facility] benitez. Simply click on Patient Portal and then log into your account. If you would like to receive a full copy of your medical records, please contact the [facility] Medical Records Department by calling [phone], Monday through Monday between 8 a.m. and [...] Call your local pharmacy or go to [email or web address].Wonder Works Media/2I5Ob0t to find one close to you.3.Make use of household items: Use cat litter or old coffee grounds to dispose medications if other options arenot available. Mix your drugs with these household products, seal them in an airtight container andthrow it into the garbage. Call [facility]: [phone] to be sure your drugs can be [...] Patient Education Materials Steps to Quit Smoking, Lqbw-kc-Amkk 3- Heart Cath/PCI radial (07/2018)(CUSTOM) Medication Leaflets spironolactone My discharge plan and instructions have been reviewed and explained to me and IDAVE MELODIE Lunderstand my current condition and have read and understand these discharge instructions. I have received a written copy of the plan/instructions. If I have questions, I am aware that I should contact my doctor. 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 Some medicines may contain a drug called [...] as websites. Examples include QuitGuide from the Innov[employer] and smokefree.gov What things can I do to make it easier to quit? Talk to your family and friends. Ask them to support and encourage you. Call a phone quitline (3-259-QNQZNOW), reach out to support groups, or work [...] 08/05/2010 Document Revised: 12/27/2019 Document Reviewed: 12/28/2019 vIPtela Patient Education 2020 Appscio. 06/25/2025 12:39:24 3- Heart Cath/PCI radial (07/2018)(CUSTOM) [...] Document Reviewed: 10/10/2014 ExitCare Patient Information 2015 Synarc. This information is not intended to replace advicegiven to you by your health care provider. Make sure you discuss any questions you have with your health care provider. Follow Up Care 06/16/2025 05:21:39 With:LUIS CANCHOLA MD Address: [address] [facility] [address] [facility] [place] [address]- When:Within 2 Week(s) With:Cardiac Rehab- [facility] Address: [facility] [address] [address]- When: Unknown Comments:Cardiac rehabilitation is a vital part of your recovery and long-term heart health following your hospital stay. It is a medically supervised exercise and education program designed to improve your physical fitness, manage heart- related risk factors, and support emotional well-being. A cardiac rehab steam powerplant supervisor will contact you soon to schedule your follow-up appointment. If you have any questions please call [phone]. With:[facility], Address:Unknown When:1-2 days Comments:[facility] has been referred to provide your home care services upon discharge; a nurse will contact you upon your return home to arrange for your start of care; please call with any further questions or concerns. With:ALFONSO OZUNA APRN-[facility] Address: [address] [place] [address] [phone] When:1-2 days Comments:Please call the office to schedule a hospital follow up appointment. [facility] 09-03-2025 Cardiology Progress note Subjective Patient [...] Complete by Nursing Assessment/Plan CAD s/p PCI ([facility] 06/24/2025 -significant LAD disease status post [...] to 35% with wall motion abnormality. Underwent [facility] yesterday showing significant LAD disease with PCI to LAD and moderate disease in LCx, which is recommended to manage medically. Patient tolerated DAPT with aspirin and Plavix. Continue Coreg, Entresto and spironolactone. Okay to be discharged from cardiac standpoint. Digitally Signed by HARSH CEDILLO MD on 06/25/2025 01:39 PM [facility] HospitalMzbvvbea67-14-7952 Discharge summary Date of Service 06/25/2025 13:16:26 [...] with PCP and Cardiology Allergies NKA Procedures [facility] Intubation Consults No qualifying data available. Imaging Results and Diagnostics XR Chest 1 View Result Date: June 19, 2025 Verified By: PARISH AGUIRRE DO CLINICAL STATEMENT: IMPRESSION: No acute radiographic findings. Emphysema XR Chest 1 View Result Date: June 18, 2025 Verified By: GENARO ON MD CLINICAL STATEMENT: IMPRESSION: 1. Chronic obstructive [...] Extremities: No edema, No cyanosis or clubbing PEDIATRIC CRITICAL CARE NURSE: Alert, No focal deficits identified. Skin: No [...] CANCHOLA MD When:In 2 weeks Where:[address] [facility] [address] [facility] [place] [address]- Follow Up with Cardiac Rehab- [facility] Where:[facility] [address] [place] [address]- Additional Information: Cardiac rehabilitation is a vital part of your recovery and long-term hearthealth following your hospital stay. It is a medically supervised exercise and education program designed to improve your physical fitness, manage heart-related risk factors, and support emotional well-being. A cardiac rehab steam powerplant supervisor will contact you soon to schedule your follow-up appointment. If you have any questions please call [phone]. Follow Up with [facility], When:Within 1-2 days Additional Information: [facility] has been referred to provide your home care services upon discharge; a nurse will contact you upon your return home to arrange for your start of care; please call with any further questions or concerns. Follow Up with ALFONSO OZUNA When:Within 1-2 days Where:[address] [place] [address] [phone] Additional Information: Please call the office to [...] KENNEDY HAMILTON MD on 06/25/2025 01:18 PM [facility] HospitalDjdxuyfp17-66-6445 Note Discharge Instructions Thank you for allowing [facility] to assist you with your healthcare needs. The following is importantdischarge information regarding your hospital visit. Your Care Team ALFONSO OZUNA What to do next Follow Up Appointments Follow Up with LUIS CANCHOLA MD When:In 2 weeks Where:[address] [facility] [place] [address]- Follow Up with Cardiac Rehab- [facility] Where:[facility] [address] [place] [address]- Additional Information: Cardiac rehabilitation is a vital part of your recovery and long-term hearthealth following your hospital stay. It is a medically supervised exercise and education program designed to improve your physical fitness, manage heart-related risk factors, and support emotional well-being. A cardiac rehab steam powerplant supervisor will contact you soon to schedule your follow-up appointment. If you have any questions please call [phone]. Follow Up with [facility], When:Within 1-2 days Additional Information: [facility] has been referred to provide your home care services upon discharge; a nurse will contact you upon your return home to arrange for your start of care; please call with any further questions or concerns. Follow Up with ALFONSO OZUNA When:Within 1-2 days Where:[place] [address]- [phone] Additional Information: Please call the office to [...] Duration: 90 Days Refills: 3 Pickup at [facility] Changed aspirin (aspirin 81 mg oral delayed release tablet) 1 tab(s) by mouth Every day Duration: 90 Days Pickup at [facility] Changed clopidogrel (Plavix 75 mg oral tablet) 1 tab(s) by mouth Once a day Duration: 90 Days Pickup at [facility] Changed furosemide (Lasix 40 mg oral tablet) 1 tab(s) by mouth Once a day Duration: 90 Days Pickup at [facility] Unchanged albuterol (albuterol MDI (90 mcg/ inh) [...] Two (2) times a day Pharmacy Information [facility]: [address] [place], [place] [id number] [phone] Please take this list to your next [...] You should not use spironolactone if you [place]'s disease, high levels of potassium in your [...] allergic to it, or if you have: [place]'s disease (an adrenal gland disorder); high levels [...] may report side effects to FDA at 6-305-BCF-2853. What other drugs will affect spironolactone? Using [...] drugs may affect spironolactone, including prescription and rzwl-gmx-btniixb medicines, vitamins, and herbal products. Not all [...] to ensure that the information provided by Art.com. ('Multum') is accurate, up-to-date, and complete, but no guarantee is made to that effect. Drug information contained herein may be time sensitive. ClickMagic information has been compiled for use by healthcare practitioners and consumers in the [place] and therefore ClickMagic does not warrant that uses outside of the [place] are appropriate, unless specifically indicated otherwise. TraceLinks drug information does not endorse drugs, diagnose patients or recommend therapy. TraceLinks drug information isan informational resource designed to [...] effective or appropriate for any given patient. [employer]Magic does not assume any responsibility for any aspect of healthcare administered with the aid of information [employer] provides. The information contained herein is not intended to cover all possible uses, directions, precautions, warnings, drug interactions, allergic reactions, or adverse effects. If you have questions about the drugs you are taking, check with your doctor, nurse or pharmacist. Copyright 7672-3379 Art.com. Version: .. Revision Date: 01/04/2020. Education Materials [...] a prescription, and some you can buy zasj-zfx-stsajnr. Some medicines may contain a drug called [...] as websites. Examples include QuitGuide from the Innoviti and smokefree.gov What things can I do to make it easier to quit? Talk to your family and friends. Ask them to support and encourage you. Call a phone quitline (7-630-JTIPNOW), reach out to support groups, or work [...] 08/05/2010 Document Revised: 12/27/2019 Document Reviewed: 12/28/2019 vIPtela Patient Education 2020 Appscio. HEART CATHETERIZATION/PCI (radial) Discharge Instructions DIET Drink [...] Document Reviewed: 10/10/2014 ExitCare Patient Information 2015 Synarc. This information is not intended to replace advicegiven to you by your health care provider. Make sure you discuss any questions you have with your health care provider. Additional Information VACCINATE! IT SAVES LIVES! Members of the community who have not yet received the COVID-19 vaccine and would like to receive it can visit one of [facility] vaccine clinics. There are many vaccine clinic locations within the [facility]. For locations and available times, please visit https://gettheshot.coronavirus.[place].gov/. It is important to note that some COVID mobile vaccine clinics are held outdoors and may be canceled in rainy or stormy conditions. To learn more about pediatric vaccinations (ages 5-11), we invite you to visit the [facility] webpage. https://www.akAzooos.org/pages/4368-Vyyqp-Biupleumhvp-Yoofwdoknf-Tcmga-Jhy stions.htmlTo learn more about the COVID-19 vaccine, we invite you to visit the CDC website for a list of frequently asked questions.https://www.cdc.gov/coronavirus/2019-ncov/vaccines/faq.html [employer] Patient Portal Access Instructions: Stay connected with your healthcare team and access your personal medical information anytime with the [employer] Patient Portal. Please follow the directions below to create your [employer] account: 1.Access the email account you provided upon registration to the hospital/physician office.2.Look for an invitation email from [facility].3.Open the email and access the invitation link: AcceptInvitation to [employer].4.Fill in the required lr to create your account. To access your account, visit [email or web address]/[email or web address]. Click the blue button labeled Access Patient [...] who you will allowto register on the [employer] Patient Portal for access to your information. You can also access the [facility] Patient Portal on the [facility] benitez. Simply click on Patient Portal and then log into your account. If you would like to receive a full copy of your medical records, please contact the [facility] Medical Records Department by calling [phone], Monday through Monday between 8 a.m. and [...] Call your local pharmacy or go to http://Animoto/9J4Kg1y to find one close to you.3.Make use of household items: Use cat litter or old coffee grounds to dispose medications if other options arenot available. Mix your drugs with these household products, seal them in an airtight container andthrow it into the garbage. Call [facility]: [phone] to be sure your drugs can be [...] Patient Education Materials Steps to Quit Smoking, Jmxk-qv-Pksi 3- Heart Cath/PCI radial (07/2018)(CUSTOM) Medication Leaflets spironolactone My discharge plan and instructions have been reviewed and explained to me and I,ZABRINA HSU my current condition and have read and understand these discharge instructions. I have received a written copy of the plan/instructions. If I have questions, I am aware that I should contact my doctor. 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: Date/Time: Relationship to Patient: Witness Name/Signature: Date/Time: [facility]Myubgskq80-58-2547 Note* Exam Date Time Procedure Performing Provider Status 06/24/25 6:43 PM Electrocardiogram - EKG - CV MARY BERNAL MD; Auth (Verified) ECG Final Report SINUS RHYTHM LOW VOLTAGE, EXTREMITY LEADS NONSPECIFIC T ABNRM, ANTEROLATERAL LEADS Electronic Signature: OWEN BERNAL MD 06/25/2025 11:40:06 [facility] HospitalRwmqzvux85-90-0540 Cardiology Progress note Date of Service 06/24/2025 [...] JESUSITA SOARES MD on 06/24/2025 02:13 PM [facility] HospitalHjpcplso12-36-9682 Cardiology Progress note Date of Service 06/24/25 [facility] Significant LAD disease s/p PCI Aspirin and Plavix Residual Left CRx disease for medical management Digitally Signed by CLAUDE MEADOWS MD on 06/24/2025 03:34 PM [facility] HospitalQfukyxar98-03-4342 Cardiology Progress note Date of Service 06/24/2025 [...] JESUSITA SOARES MD on 06/24/2025 02:13 PM [facility] HospitalGqnpzlfw97-65-5401 Note Date of Service 06/24/25 Chief Complaint [...] lab service, Stop date 06/24/25 8:05:00 EDT, [id number] .Neutro Absolute, Timed Study (collect at specified time), Blood, Once, Preferred Lab: Other lab service, Stop date 06/24/25 8:05:00 EDT, [id number] APTT, 06/24/25 8:00:00 EDT, Timed Study (collect [...] Midnight, 06/23/25 23:58:00 EDT, Constant Order, For [facility] on Sunday 06/24 NSTEMI (peak troponin [...] systolic; continue losartan and carvedilol. 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 Lipids Rosuvastatin [...] patch 14 mg daily with lozenges PRN. Wire Galvanizer cessation. Renal function Cr 1.0, BUN 19, [...] Spent Greater than 35 minutes were spent clwa-ck-sbzx with the patient +/- family during this encounter and >50% was spent on counseling and coordination of care. 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 PT recommends [...] Spent Greater than 35 minutes were spent qllq-hj-nast with the patient +/- family during this encounter and >50% was spent on counseling and coordination of care. Digitally Signed by PAPI BAXTER MD on 06/23/2025 08:03 PM [facility] HospitalMdnwuzsl62-16-2297 Note Date of Service 06/22/25 Chief Complaint [...] Spent Greater than 35 minutes were spent cnrz-ze-ifrv with the patient +/- family during this encounter and >50% was spent on counseling and coordination of care. Digitally Signed by PAPI BAXTER MD on 06/22/2025 04:42 PM [facility] HospitalAjvhjvhx85-16-4353 Note. MICRO - Microbiology PROCEDURE: Blood Culture [...] Locations *1: This test was performed at: [address], [facility] , [facility] [id number] Note. MICRO - Microbiology PROCEDURE: Blood Culture [...] Locations *1: This test was performed at: [address], [facility] , [facility] [id number] Note. MICRO - Microbiology PROCEDURE: Blood Culture [...] Locations *1: This test was performed at: [address], [address] [place] [address] [id number] Note. MICRO - Microbiology PROCEDURE: Blood Culture [...] Locations *1: This test was performed at: [address], [address] [place], [place] [id number] Nurse Progress note Patient is alert and [...] and updated regarding the incident. The community resource officer was also notified via email. Patient was monitored closely following the event. Digitally Signed by Matthieu Blake RN on 06/21/2025 07:41 AM [facility] HospitalGdyyfsql85-01-1219 Cardiology Consult note Date of Service 06/16/2025 [...] right atrial pressure is 8 mm Hg. [facility] 08/2023: SUMMARY: 1. Left ventricle: Systolic [...] Problem List/Past Medical History Ongoing CAD in cachil dehe artery Cardiomyopathy Hypertension Mitral valve regurgitation Syncope [...] MELANIE CLEMONS DO on 06/16/2025 04:25 PM [facility] HospitalUborjgmc15-68-1011 Note Date of Service 06/20/2025 ICU Day [...] COPD transfer for pulmonary and hospital At [facility]. Vitals BP 114/67, MAP 83, HR 110, [...] COPD (emphysematous) and transferred to [facility]. Current vent settings FiO2 40%, tidal [...] 240 10^3/mcL 06/17/25 06:47:00 APTT 67.1 seconds [facility] 06/20/25 01:39:00 APTT 52.6 seconds [facility] 06/19/25 17:01:00 APTT 73.6 seconds [facility] 06/19/25 08:44:00 APTT 65.1 seconds [facility] 06/19/25 02:59:00 APTT 68.1 seconds [facility] 06/18/25 19:45:00 APTT 40.6 seconds [facility] 06/18/25 08:41:00 APTT 51.7 seconds [facility] 06/18/25 03:51:00 APTT 46.8 seconds [facility] 06/17/25 20:40:00 APTT 40.2 seconds [facility] 06/17/25 12:38:00 APTT 54.3 seconds [facility] 06/17/25 06:47:00 Glucose Level 116 mg/dL [facility] 06/20/25 02:11:00 Glucose Level 156 mg/dL [facility] 06/19/25 20:49:00 Glucose Level 139 mg/dL [facility] 06/19/25 02:59:00 Glucose Level 145 mg/dL [facility] 06/18/25 03:51:00 Glucose Level 106 mg/dL 06/17/25 06:47:00 Sodium Level 139 mEq/L 06/20/25 02:11:00 Sodium Level 140 mEq/L 06/19/25 20:49:00 Sodium Level 149 mEq/L [facility] 06/19/25 02:59:00 Sodium Level 143 [...] 28 mEq/L 06/17/25 06:47:00 BUN 42 mg/dL [facility] 06/20/25 02:11:00 BUN 39 mg/dL High 06/19/25 [...] was present for, and personally supervised, the [place] components of the patient's evaluation and management by the resident housestaff today. I have examined the patient and reviewed diagnostic data.I reviewed the note of the resident. It documents the interval history obtained, examination performed, and diagnostic testing results compiled by them. I have made changes in the sections as needed. Philippe Zaragoza M.D., [facility] High degree of medical complexity noted in [...] PHILIPPE ZARAGOZA MD on 06/20/2025 12:58 PM [facility] [id number] Note* Exam Date Time Procedure Performing Provider Status 06/19/25 6:40 PM Electrocardiogram - EKG - CV JAIRO LIMA MD; Auth (Verified) ECG Final Report Wandering atrial pacemaker Left ventricular hypertrophy Prolonged QT interval Electronic Signature: JAIRO PÉREZ MD 06/20/2025 16:26:25 [facility] [id number] Note Date of Service 06-19-2025 ICU Day [...] COPD transfer for pulmonary and hospital At [facility]. Vitals BP 114/67, MAP 83, HR 110, [...] COPD (emphysematous) and transferred to [facility]. Current vent settings FiO2 40%, tidal [...] 263 10^3/mcL 06/16/25 17:09:00 APTT 73.6 seconds [facility] 06/19/25 08:44:00 APTT 65.1 seconds [facility] 06/19/25 02:59:00 APTT 68.1 seconds [facility] 06/18/25 19:45:00 APTT 40.6 seconds [facility] 06/18/25 08:41:00 APTT 51.7 seconds [facility] 06/18/25 03:51:00 APTT 46.8 seconds [facility] 06/17/25 20:40:00 APTT 40.2 seconds [facility] 06/17/25 12:38:00 APTT 54.3 seconds [facility] 06/17/25 06:47:00 APTT 71.7 seconds [facility] 06/16/25 23:54:00 APTT 33.8 seconds 06/16/25 17:09:00 Protime 14.4 seconds 06/16/25 17:09:00 PT International Ratio 1.2 ratio 06/16/25 17:09:00 Glucose Level 139 mg/dL [facility] 06/19/25 02:59:00 Glucose Level 145 mg/dL [facility] 06/18/25 03:51:00 Glucose Level 106 mg/dL 06/17/25 06:47:00 Sodium Level 149 mEq/L [facility] 06/19/25 02:59:00 Sodium Level 143 [...] the sections as needed. Philippe Zaragoza M.D., [facility] High degree of medical complexity noted in [...] PHILIPPE ZARAGOZA MD on 06/19/2025 01:04 PM [facility] HospitalWazqdvlk38-25-1179 Note* Exam Date Time Procedure Performing Provider Status 06/19/25 7:59 AM XR Chest 1 View PARISH AGUIRRE DO; [facility] (Verified) [id number] ORIGINAL EXAMINATION: ONE XRAY VIEW OF THE [...] 06/19/2025 8:06:42 AM Ordering Provider: ADRIANA WEAVER [facility] HospitalKdiaxhiu03-04-5735 Note* Exam Date Time Procedure Performing Provider Status 06/18/25 11:16 AM Electrocardiogram - EKG - CV JAIRO MARTINS MD; Auth (Verified) ECG Final Report Sinus rhythm Multiple premature complexes, vent & supraven Anterior infarct, age indeterminate Lateral leads are also involved Electronic Signature: JAIRO PÉREZ MD 06/19/2025 16:18:13 [facility] HospitalBzkiydnz50-76-5757 Note. MICRO - Microbiology PROCEDURE: Culture Respiratory [...] Locations *1: This test was performed at: [facility], [address] [place] [address], [address] , [facility]08-27-2025 Note* Exam Date Time Procedure Performing Provider Status 06/18/25 6:44 AM XR Chest 1 View GENARO NO MD; Auth (Verified) [id number] ORIGINAL EXAMINATION: ONE XRAY VIEW OF THE [...] Sign Date: 06/18/2025 7:12:41 AM Ordering Provider: [facility]08-27-2025 Note Date of Service 06-18-2025 ICU [...] COPD transfer for pulmonary and hospital At [facility]. Vitals BP 114/67, MAP 83, HR 110, [...] COPD (emphysematous) and transferred to [facility]. Current vent settings FiO2 40%, tidal [...] 9 10^3/mcL 06/17/25 06:47:00 WBC 12.1 10^3/mcL [facility] 06/16/25 17:09:00 WBC 20.2 10^3/mcL [facility] 06/16/25 10:25:00 Hgb 11 G/dL Low 06/18/25 [...] 297 10^3/mcL 06/16/25 10:25:00 APTT 51.7 seconds [facility] 06/18/25 03:51:00 APTT 46.8 seconds [facility] 06/17/25 20:40:00 APTT 40.2 seconds [facility] 06/17/25 12:38:00 APTT 54.3 seconds [facility] 06/17/25 06:47:00 APTT 71.7 seconds [facility] 06/16/25 23:54:00 APTT 33.8 seconds 06/16/25 17:09:00 Protime 14.4 seconds 06/16/25 17:09:00 PT International Ratio 1.2 ratio 06/16/25 17:09:00 Glucose Level 145 mg/dL [facility] 06/18/25 03:51:00 Glucose Level 106 mg/dL 06/17/25 [...] minutes Critical Care time Philippe Zaragoza M.D., [facility] High degree of medical complexity noted in [...] PHILIPPE ZARAGOZA MD on 06/18/2025 12:13 PM [facility] HospitalOmffdkap55-05-8857 Note* Exam Date Time Procedure Performing Provider Status 06/17/25 6:53 AM XR Chest 1 View GENARO NO MD; Auth (Verified) [id number] ORIGINAL EXAMINATION: ONE XRAY VIEW OF THE [...] Date: 06/17/2025 6:58:17 AM [facility] HospitalHpiluhql27-56-7541 Note Date of Service 06-17-2025 ICU Day 2 Significant Comorbidities/Current Illness 70-year-old female with history of CAD status post PCI to RCA in , cardiomyopathy (thought to be Takotsubo cardiomyopathy), COPD, bipolar, tobacco use, GERD, anxiety, depression, history of suicide attempt in 2010. Presented to [facility] with COPD exacerbation. developed hypoxic respiratory failure requiring intubation and mechanical ventilation and COPD transfer for pulmonary and hospital At [facility]. Vitals BP 114/67, MAP 83, HR 110, [...] exacerbation of [facility]physemat[facility]. Current vent settings FiO2 40%, tidal [...] & SBI 143, RR 31, and tidal gyvmef849. Minute volume was 5.9. 4-collateral history obtained [...] minutes Critical Care time Philippe Zaragoza M.D., [facility] High degree of medical complexity noted in [...] PHILIPPE ZARAGOZA MD on 06/17/2025 12:37 PM [facility] HospitalLrctedjr84-35-2366 Note* Exam Date Time Procedure Performing Provider Status 06/16/25 4:12 PM Electrocardiogram - EKG - CV JAIRO LIMA MD; Auth (Verified) ECG Final Report Sinus rhythm Atrial premature complex Anterior infarct, age indeterminate Prolonged QT interval Electronic Signature: JAIRO PÉREZ MD 06/17/2025 20:33:19 [facility] HospitalTvgprkrz44-25-7775 Pastoral care Progress note Pastoral Care Note [...] by Krystian Adams on 06/16/2025 04:08 PM [facility] HospitalIarrobbt86-74-2281 Cardiology Consult note Date of Service 06/16/2025 [...] right atrial pressure is 8 mm Hg. [facility] 08/2023: SUMMARY: 1. Left ventricle: Systolic [...] Problem List/Past Medical History Ongoing CAD in cachil dehe artery Cardiomyopathy Hypertension Mitral valve regurgitation Syncope [...] MELANIE CLEMONS DO on 06/16/2025 04:25 PM [facility] HospitalVmfirkwq72-50-0448 Evaluation + Plan noteExtracted from: Title:History and [...] minutes Critical Care time Philippe Zaragoza M.D., [facility] High degree of medical complexity noted in this patient with review of external notes and results of tests, ordering of new tests, and an independent review of the patient. I reviewed tests ordered by other physicians and reviewed my assessment with other health care providers. Future Scheduled Tests Laboratory* Basic Metabolic Panel 03/13/25 [facility] 08-25-2025 Note* Exam Date Time Procedure Performing Provider Status 06/16/25 1:35 PM Electrocardiogram - EKG - CV JAIRO LIMA MD; Auth (Verified) ECG Final Report WANDERING ATRIAL PACEMAKER Consider left ventricular hypertrophy Inferior infarct, old Prolonged QT interval Electronic Signature: JAIRO PÉREZ MD 06/17/2025 20:33:08 [facility] HospitalCioyycly50-97-5127 Note* Exam Date Time Procedure Performing Provider Status 06/16/25 1:27 PM Echocardiogram, Adult - CV JAIRO BEJARANO MD; Auth (Verified) [facility] HospitalCbaejqiv17-48-8943 Note. MICRO - Microbiology PROCEDURE: Legionella Urine [...] Locations *1: This test was performed at: [address], [address] , [facility]08-25-2025 Note. MICRO - Microbiology PROCEDURE: Streptococcus [...] Locations *1: This test was performed at: [address], [address] , [facility]08-25-2025 Note* Exam Date Time Procedure Performing Provider Status 06/16/25 11:30 AM VL Venous US/Doppler Both Legs(for DVT) EMILIO AVILES MD; Auth (Verified) [facility] [id number] Note* Exam Date Time Procedure Performing Provider Status 06/16/25 10:36 AM XR Chest 1 View ARANZA REDDY MD; [facility] (Verified) [id number] ORIGINAL EXAMINATION: ONE XRAY VIEW OF THE [...] 10:44:49 AM Ordering Provider: VANDANA DOS SANTOS [facility] HospitalDgqriejs91-73-1089 History and physical note Date of Service 06/16/2025 Chief Complaint Transferred from [facility] History of Present Illness This is 70-year-old [...] COPD transfer for pulmonary and hospital At [facility]. Vitals BP 114/67, MAP 83, HR 110, [...] COPD (emphysematous) and transferred to [facility]. Current vent settings FiO2 40%, tidal [...] minutes Critical Care time Philippe Zaragoza M.D., [facility] High degree of medical complexity noted in this patient with review of external notes and results of tests, ordering of new tests, and an independent review of the patient. I reviewed tests ordered by other physicians and reviewed my assessment with other health care providers. Problem List/Past Medical History Ongoing CAD in cachil dehe artery Cardiomyopathy Hypertension Mitral valve regurgitation Syncope [...] DOS SANTOS MD on 06/16/2025 03:41 PM [facility] HospitalLpfyfzmc61-61-8849 Note. MICRO - Microbiology PROCEDURE: Blood Culture (bacterial) [*1] SOURCE: Blood BODY SITE: COLLECTED DATE/TIME: 11/04/2024 05:15 EST RECEIVED DATE/TIME: 11/04/2024 15:48 EST START DATE/TIME: 11/04/2024 15:49 EST FREE TEXT SOURCE: M/R 55524; lab [id number]; [id number] FINAL REPORTS Final Report [] Verified Date/Time/Personnel: 11/09/2024 15:59 EST Blood Culture: No Growth at 5 days. PRELIMINARY REPORTS Preliminary Report [] Verified Date/Time/Personnel: 11/04/2024 16:59 EST Culture has been received in lab and is no growth to date. Routine cultures are held for 5 days. Performing Locations *1: This test was performed at: [facility], [address] [place] [address], [address] , [facility]01-18-2025 Note. MICRO - Microbiology PROCEDURE: Blood Culture (bacterial) [*1] SOURCE: Blood BODY SITE: COLLECTED DATE/TIME: 11/04/2024 05:45 EST RECEIVED DATE/TIME: 11/04/2024 15:45 EST START DATE/TIME: 11/04/2024 15:46 EST FREE TEXT SOURCE: M/R 42669; lab 77932; [id number] FINAL REPORTS Final Report [] Verified Date/Time/Personnel: 11/09/2024 15:59 EST Blood Culture: No Growth at 5 days. PRELIMINARY REPORTS Preliminary Report [] Verified Date/Time/Personnel: 11/04/2024 16:59 EST Culture has been received in lab and is no growth to date. Routine cultures are held for 5 days. Performing Locations *1: This test was performed at: [address] [id number] Note. MICRO - Microbiology PROCEDURE: Blood Culture [...] Locations *1: This test was performed at: [address], [address] [place] [address] [id number] Note. MICRO - Microbiology PROCEDURE: Blood Culture [...] Locations *1: This test was performed at: [facility], [address] [place] [address], [facility]- , [facility]01-18-2025 Discharge summary Date of Service 11/09/2024 [...] and depression who presented as transfer from [facility] with acute respiratory failure requiring intubation. Initial saturation on 4 L nasal cannula was 70%. Lactic acid was elevated at 4.6. She initially went to ER at [facility] with shortness of breath and wheezing. At the previous hospital patient was thought to have A-fib with RVR and she was started on Cardizem drip, and route patient was in normal sinus rhythm, and in [facility] patient was always in normal sinus rhythm, upon reviewing the EKG that was done in [facility],I do have a suspicion that the [...] Up Follow Up with Mahnaz Moore for [facility], report to [phone] When:Within 1-2 days Follow Up with ALFONSO OZUNA When:Within 1-2 days Where:[facility] [place] [address] [phone] Business (1) Follow Up Appointments Transfer of [...] MERCEDES CARTER MD on 11/09/2024 01:12 PM [facility] HospitalVjfqrtum02-34-8111 Hospital Discharge instructions Patient Education 11/09/2024 10:15:52 [...] breathing. Follow these instructions at home: Take xgsy-dtc-vvxouaq and prescription medicines only as told by [...] 10/14/2014 Document Revised: 09/21/2018 Document Reviewed: 04/26/2017 vIPtela Patient Education 2020 [employer]. Follow Up Care 11/04/2024 07:53:19 With:Mahnaz Moore for skilled care, report to [phone] Address:Unknown When:1-2 days With:ALFONSO OZUNA Address: [address] [place] [address] [phone] Business (1) When:1-2 days [facility] 01-18-2025 Note Discharge Instructions Thank you for allowing [facility] to assist you with your healthcare needs. The following is importantdischarge information regarding your hospital visit. 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 Follow these instructions at home: Take pbar-bsj-lrbonfe and prescription medicines only as told by [...] 10/14/2014 Document Revised: 09/21/2018 Document Reviewed: 04/26/2017 vIPtela Patient Education 2020 [employer]. Additional Information VACCINATE! IT SAVES LIVES! Members of the community who have not yet received the COVID-19 vaccine and would like to receive it can visit one of [facility] vaccine clinics. There are many vaccine clinic locations within the [facility]. For locations and available times, please visit [email or web address].[place].gov/. It is important to note that some COVID mobile vaccine clinics are held outdoors and may be canceled in rainy or stormy conditions. To learn more about pediatric vaccinations (ages 5-11), we invite you to visit the [facility] webpage. https://www.[email or web address].org/pages/[email or web address]-Doixz-Mlxmuegplzf-Phxsxojbxs-Bufoh-Jvc stions.htmlTo learn more about the COVID-19 vaccine, we invite you to visit the CDC website for a list of frequently asked questions.https://www.cdc.gov/coronavirus/2019-ncov/vaccines/faq.html [facility] Patient Portal Access Instructions: Stay connected with your healthcare team and access your personal medical information anytime with the [employer] Patient Portal. Please follow the directions below to create your [employer] account: 1.Access the email account you provided upon registration to the hospital/physician office.2.Look for an invitation email from [facility].3.Open the email and access the invitation link: AcceptInvitation to [facility].4.Fill in the required lr to create your account. To access your account, visit [employer]/[email or web address]. Click the blue button labeled Access Patient [...] who you will allowto register on the [facility] [employer] Patient Portal for access to your information. You can also access the [facility] [employer] Patient Portal on the [facility] [employer] benitez. Simply click on Patient Portal and then log into your account. If you would like to receive a full copy of your medical records, please contact the [facility] Medical Records Department by calling [phone], Monday through Monday between 8 a.m. and [...] Call your local pharmacy or go to [email or web address] to find one close to you.3.Make use of household items: Use cat litter or old coffee grounds to dispose medications if other options arenot available. Mix your drugs with these household products, seal them in an airtight container andthrow it into the garbage. Call [facility]: [phone] to be sure your drugs can be [...] aware that I should contact my doctor. 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 The following is importantdischarge information regarding your hospital visit. 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 TENDER What to do next Scheduled Follow-Up Appointments Appointment Type When With Where [facility] Up 12/06/2024 03:30 PM NORA RUIZ [facility] Confirmed Follow Up Appointments Follow Up with Mahnaz Moore for skilled care, report to [phone] When:Within 1-2 days Follow Up with ALFONSO OZUNA When:Within 1-2 days Where:[address] [place] [address] [phone] Business (1) The Following Activity and Diet [...] to receive it can visit one of [facility] vaccine clinics. There are many vaccine clinic locations within the [facility]. For locations and available times, please visit [email or web address].[email or web address]/. It is important to note that some COVID mobile vaccine clinics are held outdoors and may be canceled in rainy or stormy conditions. To learn more about pediatric vaccinations (ages 5-11), we invite you to visit the [facility] webpage. https://www.[email or web address].org/pages/[email or web address]-Xzduy-Cifdiojrnov-Ofhkcxnjhn-Qqdpj-Xvz stions.htmlTo learn more about the COVID-19 vaccine, we invite you to visit the CDC website for a list of frequently asked questions.https://www.cdc.gov/coronavirus/2019-ncov/vaccines/faq.html [facility] Patient Portal Access Instructions: Stay connected with your healthcare team and access your personal medical information anytime with the [facility] Patient Portal. Please follow the directions below to create your [facility] [employer] account: 1.Access the email account you provided upon registration to the hospital/physician office.2.Look for an invitation email from [facility].3.Open the email and access the invitation link: AcceptInvitation to [facility]4.Fill in the required lr to create your account. To access your account, visit [employer] [employer]. Click the blue button labeled Access Patient Portal and then log in with the username and password that you created in the steps above. You will be able to view your test results, lab results, a summary of your visits, upcoming appointments and more. There is also a convenient messaging option where you can send secure messages to your [employer]. In addition, you will have the ability to download any documents or summaries to your computer and/or send the information securely to a physician. Remember that your healthcare information is confidential, so carefully consider who you will allowto register on the [facility] Patient Portal for access to your information. You can also access the [facility] Patient Portal on the [facility] [employer]z. Simply click on Patient Portal and then log into your account. If you would like to receive a full copy of your medical records, please contact the [facility] Medical Records Department by calling [phone], Monday through Monday between 8 a.m. and [...] Call your local pharmacy or go to [email or web address] to find one close to you.3.Make use of household items: Use cat litter or old coffee grounds to dispose medications if other options arenot available. Mix your drugs with these household products, seal them in an airtight container andthrow it into the garbage. Call [facility]: [phone] to be sure your drugs can be [...] aware that I should contact my doctor. 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: Date/Time: Relationship to Patient: Witness Name/Signature: Date/Time: [facility] HospitalBdcxexig03-78-3545 Respiratory therapy Hospital Progress note Respiratory Therapy [...] by DESHAWN Hill on 11/09/2024 07:30 AM [facility] HospitalNywhfaez79-04-2788 Note Subjective: Patient seen for pneumonia versus [...] 08 06:19)L 54(NOV 07 23:30)70(NOV 08 06:19) KIR633(NOV 08 14:34)L 87(NOV 08 11:03)H 198(NOV 08 [...] MERCEDES CARTER MD on 11/08/2024 03:14 PM [facility] HospitalTbaryssq14-96-0069 Note Date of Service 11/07/23 Subjective This is ICU day #4 for Marcela, a 69-year-old female past medical history coronary artery disease status post stenting in the , 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 Initial saturation on 4 L nasal cannula was 70%. Lactic acid was elevated at 4.6. She initially went to ER at [facility] with shortness of breath and wheezing. She [...] EMILIO DERAS MD on 11/07/2024 11:10 AM [facility] HospitalLavcixao13-77-4942 Consult note Date of Service 11/05/2024 Reason [...] Problem List/Past Medical History Ongoing CAD in cachil dehe artery Cardiomyopathy Procedure/Surgical History Echocardiogram: 09/04/23 Cardiac [...] JACQUELINE FAUSTIN DPM on 11/05/2024 05:02 PM [facility] [id number] Note* Exam Date Time Procedure Performing Provider Status 11/07/24 6:39 AM XR Chest 1 View GENARO NO MD; Auth (Verified) [id number] ORIGINAL EXAMINATION: ONE XRAY VIEW OF THE [...] 11/07/2024 6:54:29 AM Ordering Provider: EMILIO REYES [facility] HospitalYhknqqai68-61-1742 Note Date of Service 11/06/2024 Subjective This is ICU day #3 for Marcela, a 69-year-old female past medical history coronary artery disease status post stenting in the , 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 Initial saturation on 4 L nasal cannula was 70%. Lactic acid was elevated at 4.6. She initially went to ER at [facility] with shortness of breath and wheezing. She [...] - ipratropium 2.5 mg-0.5 mg/3 mL Inhal Simley UD 3 mL, Inhalation, q2hRT dextrose 50% [...] EMILIO DERAS MD on 11/06/2024 10:46 AM [facility] HospitalEknnemfe07-99-1686 Note* Exam Date Time Procedure Performing Provider Status 11/06/24 6:28 AM XR Chest 1 View GENARO NO MD; Auth (Verified) [id number] ORIGINAL EXAMINATION: ONE XRAY VIEW OF THE [...] 11/06/2024 6:39:04 AM Ordering Provider: EMILIO REYES [facility] [id number] Consult note Date of Service 11/05/2024 Reason [...] Problem List/Past Medical History Ongoing CAD in cachil dehe artery Cardiomyopathy Procedure/Surgical History Echocardiogram: 09/04/23 Cardiac [...] JACQUELINE FAUSTIN DPM on 11/05/2024 05:02 PM [facility] HospitalGhtjrbvd86-78-2027 Note Date of Service 11/05/2024 Subjective This is ICU day #2 for Marcela, a 69-year-old female past medical history coronary artery disease status post stenting in the , 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 Initial saturation on 4 L nasal cannula was 70%. Lactic acid was elevated at 4.6. She initially went to ER at [facility] with shortness of breath and wheezing. She [...] EMILIO DERAS MD on 11/05/2024 01:07 PM [facility] HospitalPukhhiab76-61-9237 Note* Exam Date Time Procedure Performing Provider Status 11/05/24 10:45 AM Echocardiogram, Adult - CV MARY BERNAL MD; Auth (Verified) [facility] [id number] Note* Exam Date Time Procedure Performing Provider Status 11/05/24 6:27 AM XR Chest 1 View GENARO NO MD; Auth (Verified) [id number] ORIGINAL EXAMINATION: ONE XRAY VIEW OF THE [...] 6:36:29 AM Ordering Provider: VANDANA DOS SANTOS [facility] [id number] Note* Exam Date Time Procedure Performing Provider Status 11/04/24 8:[address] Angiography Chest w/ Contrast PARISH THURMAN MD; Auth (Verified) [id number] ORIGINAL EXAMINATION: CTA OF THE CHEST 11/04/2024 [...] 11/04/2024 8:33:11 PM Ordering Provider: KAYLA RYAN [facility] [id number] Note. MICRO - Microbiology PROCEDURE: Streptococcus Pneumoniae [...] Locations *1: This test was performed at: [facility], [address] [place] [address], [facility] , [facility]01-13-2025 Note. MICRO - Microbiology PROCEDURE: Legionella [...] Locations *1: This test was performed at: [facility], [address] [place] [address], [address]- , [facility] [id number] History and physical note Date of Service 11/04/2023 Chief Complaint breathlessnessx1 day History of Present Illness Patient is a 69 [facility]2024 for concerns of breathlessness x [...] from patient documentation that was sent from [facility]. Per documentation, appears that patient was apparently [...] as well. While in the ER at [facility], patient was also found to have an irregularly irregular rhythm and was also tachycardic all the way up to 143 bpm.For this purpose as well as elevated blood pressures, patient was given Cardizem loading as well asCardizem drip. On the way via the ambulance to [facility], patient converted and is now in normal sinus rhythm. Roughly at about 10:30 AM this morning. While at [facility] preliminary vitals, Lab work, radiological tests showed: [...] and sedation protocols. -Obtain imaging reads from [facility]. -For the time being, we will continue [...] Problem List/Past Medical History Ongoing CAD in cachil dehe artery Cardiomyopathy Procedure/Surgical History Echocardiogram: 09/04/23 Cardiac [...] KAYLA RYAN MD on 11/04/2024 03:48 PM [facility] HospitalJhkqkxya00-04-0424 Evaluation + Plan noteExtracted from: Title:History and [...] and sedation protocols. -Obtain imaging reads from [facility]. -For the time being, we will continue [...] and depression who presented as transfer from [facility] with acute respiratory failure requiring intubation. Initial saturation on 4 L nasal cannula was 70%. Lactic acid was elevated at 4.6. She initially went to ER at [facility] with shortness of breath and wheezing. [...] Appointment Date:12/06/2024 03:30:00 PM Scheduled Provider:NORA ROBERT Location:[facility] Appointment Type:[facility] Hospital Follow Up Diagnostic Tests Pending * Culture Respiratory with Gram Stain 11/04/24 Future Scheduled Tests Laboratory* Basic Metabolic Panel 01/22/24 * Basic Metabolic Panel 02/08/24 * Basic Metabolic Panel 01/31/24 [facility] 01-13-2025 Note* Exam Date Time Procedure Performing Provider Status 11/04/24 12:34 PM XR Abdomen AP ARANZA REDDY MD; Auth (Verified) [id number] ORIGINAL EXAMINATION: ONE XRAY VIEW OF THE [...] Sign Date: 11/04/2024 12:56:39 PM Ordering Provider: [facility]01-13-2025 Note* Exam Date Time Procedure Performing Provider Status 11/04/24 12:32 PM XR Chest 1 View ARANZA REDDY MD; [facility] (Verified) [id number] ORIGINAL EXAMINATION: ONE XRAY VIEW OF THE [...] 11/04/2024 12:56:39 PM Ordering Provider: KAYLA RYAN [facility] [id number] History and physical note Date of Service 11/04/2023 Chief Complaint breathlessnessx1 day History of Present Illness Patient is a 69 [facility]2024 for concerns of breathlessness x [...] from patient documentation that was sent from [facility]. Per documentation, appears that patient was apparently [...] as well. While in the ER at [facility], patient was also found to have an irregularly irregular rhythm and was also tachycardic all the way up to 143 bpm.For this purpose as well as elevated blood pressures, patient was given Cardizem loading as well asCardizem drip. On the way via the ambulance to [facility], patient converted and is now in normal sinus rhythm. Roughly at about 10:30 AM this morning. While at [facility] preliminary vitals, Lab work, radiological tests showed: [...] and sedation protocols. -Obtain imaging reads from [facility]. -For the time being, we will continue [...] Problem List/Past Medical History Ongoing CAD in cachil dehe artery Cardiomyopathy Procedure/Surgical History Echocardiogram: 09/04/23 Cardiac [...] KAYLA RYAN MD on 11/04/2024 03:48 PM [facility] [id number] [facility]12-12-2024 History of Present illness Narrative* Kenzie [...] June she had COPD exacerbation, went to [place] and was transferred to Center per the patient. Rpeorts since that admission she still uses albuterol daily, and trelegy daily. She is currently taking Plavix, ASA and aspirin, she is unsure if she had an SD in the past or who started her [...] Referral to Cardiology 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, unspecified vessel [...] start losartan 50mg daily documented in this [facility] Work Phone: 1(196) 867-231411-27-2023 History of Present illness Narrative* Elvin Blanc PA-C - 09/18/2023 11:50 AM EST Subjective Patient ID: Zabrina Hsu is a 68 y.o. female who presents for Establish Care (Patient here to get established as a new patient and transferring from [place]./Patient dx with COPD, seen in ER last [...] Patient was recently admitted to hospital in [facility]. Patient is not sure why stating [...] T4 if abnormal 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, unspecified vessel [...] type (CMS/HCC) [I25.110] 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, unspecifiedvessel or lesion type (CMS/HCC) [I10] Primary hypertension [I50.9] Congestive heart failure, unspecified HF chronicity, unspecified heart failure type (CMS/HCC) documented in this [facility] Work Phone: 1(774) 404-644611-16-2023 Note. MICRO - Microbiology PROCEDURE: Blood Culture [...] Locations *1: This test was performed at: [facility], [address] [place] [address], [facility] , [facility])09-07-2023 Note. MICRO - Microbiology PROCEDURE: Blood [...] Locations *1: This test was performed at: [address]09-07-2023 Note. MICRO - Microbiology PROCEDURE: Blood [...] Locations *1: This test was performed at: [address], [address] [place] [address] ([facility]09-07-2023 Note. MICRO - Microbiology PROCEDURE: Blood Culture [...] Locations *1: This test was performed at: [facility], [address] [place] [address], [facility]- , [facility] ([place])09-06-2023 Hospital Discharge instructions Patient Education 09/06/2023 11:21:47 [...] Document Reviewed: 10/10/2014 ExitCare Patient Information 2015 [employer]. This information is not intended to replace [...] breathing. Follow these instructions at home: Take tfjk-xwe-szvdzdz and prescription medicines only as told by [...] 10/14/2014 Document Revised: 09/21/2018 Document Reviewed: 04/26/2017 vIPtela Patient Education 2020 [employer]. 09/06/2023 11:20:40 Home Oxygen Use, Adult Home [...] oxygen Your health care provider or a claims service representative from your biomedical equipment tech company will show you how touse your [...] not move around. Follow instructions from your biomedical equipment tech company about how to safely secure your tank. Make sure you have enough oxygen for the amount of time you will be away from home. If you are planning air travel, contact the airline to find out if they allow the use of an approved portable oxygen concentrator. You may also need documents from your health care provider and biomedical equipment tech company before you travel. General safety tips If you use an oxygen cylinder, make sure it is in a stand or secured to an object that will not move (fixed object). If you use liquid oxygen, make sure its container is kept upright. If you use an oxygen concentrator: ?Tell your [employer]. Make sure you are given priority service [...] Summary Your health care provider or a claims service representative from your biomedical equipment tech company will show you how touse your [...] 12/29/2004 Document Revised: 03/28/2019 Document Reviewed: 05/02/2017 vIPtela Patient Education 2020 [employer]. Follow Up Care 09/02/2023 04:20:17 With:Ronaldo Mills will be your oxygen supplier. Please call [phone] for questions or concerns. Address: When: Unknown With:FERCHO VILLASEÑOR Address: [address] [place] [address] [phone] Business (1) When:1-2 days With:PHILIPPE ZARAGOZA MD Address: [address] [address] [place] [address]- [phone] When:5 to 7 days With:ASTRID ROBERT MD Address: [address] [place], [place] [address]- [phone] When:09/13/2023 15:00:00 With:[facility] will contact you for an appointment If you have any questions please call:[phone]. Address: When: Unknown [facility] 11-15-2023 Note Discharge Instructions Thank you for allowing [facility] to assist you with your healthcare needs. The following is importantdischarge information regarding your hospital visit. Your Care Team DO FERCHO VILLASEÑOR What to do next Scheduled Follow-Up Appointments Appointment Type When Where Contact InformationCV Hospital Follow Up 09/13/2023 03:00 PM EST [facility] Appointments Follow Up with ASTRID ROBERT MD When 09/13/2023 03:00 PM EST Where: [address] [place] [address]- [phone] Follow Up with PHILIPPE ZARAGOZA MD When Within 5 to 7 days Where: [address] [address] [place] [address]- [phone] Follow Up with [facility] will contact you for an appointment If you have any questionsplease call:[phone]. When Where: The Following Activity and Diet [...] needed for wheezing Refills: 3 Pickup at [facility] New clopidogrel (Plavix 75 mg oral tablet) 1 tab(s) by mouth Once a day Refills: 3 Pickup at [facility] New fluticasone/ umeclidinium/ vilanterol (Trelegy Ellipta 100 mcg-62.5 mcg-25 mcg/ inh inhalation powder) 1 puff(s) by inhalation Once a day Refills: 3 at the same time every day. Following administration, rinse mouth with water after use (do not swallow). Pickup at [facility] New furosemide (Lasix 20 mg oral tablet) 1 tab(s) by mouth Once a day Refills: 3 Pickup at [facility] New metoprolol (metoprolol succinate 25 mg oral TABLET extended release) 1 tab(s) by mouth Twice daily with meals Refills: 3 Pickup at [facility] New rosuvastatin (rosuvastatin 20 mg oral tablet) 2 tab(s) by mouth Once a day Refills: 3 Pickup at [facility] New sacubitril-valsartan (Entresto 24 mg-26 mg oral tablet) 1 tab(s) by mouth Two (2) times a day Refills: 3 Pickup at [facility] Unchanged aspirin (aspirin 81 mg oral delayed release tablet) 1 tab(s) by mouth Every day Unchanged buPROPion (Wellbutrin SR) 100 Milligram by mouth Once a day Unchanged oxcarbazepine (Trileptal) 150 Milligram by mouth Daily at bedtime Pharmacy Information [facility]: [address] [place], [place] [id number] [phone] Please take this list to your next [...] wireless accessories such as remote control, or Canonicaloth devices. Do not reuse a needle, syringe [...] blood pressure, such as diet pills or peyap-bpu-frmc medicine. What are the possible side effects [...] may report side effects to FDA at 8-770-GWW-0585. What other drugs will affect furosemide? Sometimes [...] drugs may affect furosemide, including prescription and ohth-xmd-iehdfhw medicines, vitamins, and herbal products. Not all [...] to ensure that the information provided by [employer]. ('Mult[employer]') is accurate, up-to-date, and complete, but no guarantee is made to that effect. Drug information contained herein may be time sensitive. [employer] information has been compiled for use by healthcare practitioners and consumers in the [place] and therefore [employer] does not warrant that uses outside of the [place] are appropriate, unless specifically indicated otherwise. [employer]Links drug information does not endorse drugs, diagnose patients or recommend therapy. TraceLinks drug information isan informational resource designed to assist licensed healthcare practitioners in caring for their p [facility] and/or to serve consumers viewing this service as a supplement to, and not a substitute for, the expertise, skill, knowledge and judgment of healthcare practitioners. The absence of a warningfor a given drug or drug combination in no way should be construed to indicate that the drug or drug combination is safe, effective or appropriate for any given patient. [employer] does not assume any responsibility for any aspect of healthcare administered with the aid of information [employer] provides. The information contained herein is not intended to cover all possible uses, directions, precautions, warnings, drug interactions, allergic reactions, or adverse effects. If you have questions about the drugs you are taking, check with your doctor, nurse or pharmacist. Copyright 8488-2043 [facility] [employer]. Version: 18.. Revision Date: 12/30/2022. metoprolol (oral/injection) [...] may report side effects to FDA at 0-558-ZSP-8972. What other drugs will affect metoprolol? Tell your doctor about all your current medicines. Many drugs can affect metoprolol, especially: any other heart or blood pressure medications; epinephrine (Epi-Pen); an antidepressant; an ergot medicine--dihydroergotamine, ergonovine, ergotamine, methylergonovine; or an MAO inhibitor--isocarboxazid, linezolid, phenelzine, rasagiline, selegiline, tranylcypromine. This list is not complete and many other drugs may affect metoprolol. This includes prescription and soyt-utd-vfjypyx medicines, vitamins, and herbal products. Not all [...] to ensure that the information provided by [employer]. ('[employer]') is accurate, up-to-date, and complete, but no guarantee is made to that effect. Drug information contained herein may be time sensitive. [employer] information has been compiled for use by healthcare practitioners and consumers in the [place] and therefore [employer] does not warrant that uses outside of the [place] are appropriate, unless specifically indicated otherwise. [employer]Links drug information does not endorse drugs, diagnose patients or recommend therapy. [employer]Links drug information isan informational resource designed to [...] effective or appropriate for any given patient. [employer] does not assume any responsibility for any aspect of healthcare administered with the aid of information [employer] provides. The information contained herein is not intended to cover all possible uses, directions, precautions, warnings, drug interactions, allergic reactions, or adverse effects. If you have questions about the drugs you are taking, check with your doctor, nurse or pharmacist. Copyright 9771-4269 [employer]. Version: 19.. Revision Date: 05/31/2023. Education Materials [...] 10/09/2006 Document Revised: 09/25/2013 Document Reviewed: 10/10/2014 [facility] Patient Information 2015 [employer]. This information is not intended to replace [...] breathing. Follow these instructions at home: Take eobd-cmu-lxtbywx and prescription medicines only as told by [...] 10/14/2014 Document Revised: 09/21/2018 Document Reviewed: 04/26/2017 [employer] Patient Education 2020 [employer] Home Oxygen Use, Adult When a [...] oxygen Your health care provider or a claims service representative from your biomedical equipment tech company will show you how touse your [...] not move around. Follow instructions from your biomedical equipment tech company about how to safely secure your tank. Make sure you have enough oxygen for the amount of time you will be away from home. If you are planning air travel, contact the airline to find out if they allow the use of an approved portable oxygen concentrator. You may also need documents from your health care provider and biomedical equipment tech company before you travel. General safety tips [...] Summary Your health care provider or a claims service representative from your biomedical equipment tech company will show you how touse your [...] 12/29/2004 Document Revised: 03/28/2019 Document Reviewed: 05/02/2017 [employer] Patient Education 2020 [employer] Additional Information VACCINATE! IT SAVES LIVES! Members of the community who have not yet received the COVID-19 vaccine and would like to receive it can visit one of [facility] vaccine clinics. There are many vaccine clinic locations within the [facility]. For locations and available times, please visit https://gettheshot.coronavirus.[place].gov/. It is important to note that some COVID mobile vaccine clinics are held outdoors and may be canceled in rainy or stormy conditions. To learn more about pediatric vaccinations (ages 5-11), we invite you to visit the [facility] webpage. https://www.[facility].org/pages/3762-Schyu-Orboyhneufg-Uyxrkiqoxm-Dxmyw-Prc stions.htmlTo learn more about the COVID-19 vaccine, we invite you to visit the CDC website for a list of frequently asked questions.https://www.cdc.gov/coronavirus/2019-ncov/vaccines/faq.html [employer] Patient Portal Access Instructions: Stay connected with your healthcare team and access your personal medical information anytime with the [employer] Patient Portal. Please follow the directions below to create your [employer] account: 1.Access the email account you provided upon registration to the hospital/physician office.2.Look for an invitation email from [facility].3.Open the email and access the invitation link: AcceptInvitation to [employer] [facility].4.Fill in the required lr to create your account. To access your account, visit [employer]hart. Click the blue button labeled Access Patient [...] you will allowto register on the [employer] Patient Portal for access to your information. You can also access the [employer] Patient Portal on the [facility] benitez. Simply click on Patient Portal and then log into your account. If you would like to receive a full copy of your medical records, please contact the [facility] Medical Records Department by calling [phone], Monday through Monday between 8 a.m. and [...] Call your local pharmacy or go to [email or web address].Wonder [employer] [email or web address] to find one close to you.3.Make use of household items: Use cat litter or old coffee grounds to dispose medications if other options arenot available. Mix your drugs with these household products, seal them in an airtight container andthrow it into the garbage. Call [facility]: [phone] to be sure your drugs can be [...] combine opioids with (more content not included)... 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 (I25.10 - [...] BID, # 60 tab(s), 3 Refill(s), Pharmacy: [facility], 157.5, cm, 09/02/23 6:47:00 EST, [...] qDay, # 30 tab(s), 3 Refill(s), Pharmacy: [facility], 157.5, cm, 09/02/23 6:47:00 EST, Height, kg, 09/02/23 6:47:00 EST, Dosing Weight Ordered: Plavix 75 mg oral tablet,Dose : 75 mg = 1 tab(s), Oral, qDay, # 30 tab(s), 3 Refill(s), Pharmacy: [facility], 157.5, cm, 09/02/23 6:47:00 EST, [...] swallow)., # 60 EA, 3 Refill(s), Pharmacy: [facility], 157.5, cm, 09/02/23 6:47:00 EST, Height, kg, 09/02/23... Ordered: albuterol MDI (90 mcg/inh) CFC free inhalation aerosol,1 puff(s), Inhalation, q4h, PRN as needed for wheezing, # 8.5 gram(s), 3 Refill(s), Pharmacy: [facility], 157.5, cm, 09/02/23 6:47:00 EST, Height, kg, 09/02/23 6:47:00 EST, Dosing Weight Discontinued: losartan,Start: 09/04/23 11:43:00 EST, Dose = 25 mg, = 1 tab(s), Oral, qDay, 09/04/2311:43:00 EST Discontinued: losartan 25 mg oral tablet,Dose : 25 mg = 1 tab(s), Oral, qDay, # 30 tab(s), 3 Refill(s), Pharmacy: [facility], 157.5, cm, 09/02/23 6:47:00 EST, Height, kg, 09/02/23 6:47:00 EST, Dosing Weight Ordered: metoprolol succinate 25 mg oral TABLET extended release,Dose : 25 mg = 1 tab(s), Oral, BIDM, # 60 tab(s), 3 Refill(s), Pharmacy: [facility], 157.5, cm, 09/02/23 6:47:00 EST, Height, kg, 09/02/23 6:47:00 EST, Dosing Weight Ordered: rosuvastatin 20 mg oral tablet,Dose : 40 mg = 2 tab(s), Oral, qDay, # 60 tab(s), 3 Refill(s), Pharmacy: [facility], 157.5, cm, 09/02/23 6:47:00 EST, [...] bedtime. Follow Up Follow Up with ASTRID ORBERT MD When 09/13/2023 03:00 PM EST Where: [address] [facility] [place] [address]- [phone] Follow Up with PHILIPPE ZARAGOZA MD When Within 5 to 7 days Where: [address] [address] [place] [address]- [phone] Follow Up with [facility] will contact you for an appointment If you have any questionsplease call:[phone]. When Where: Follow Up Appointments No qualifying data available. Follow Up Labs/Studies Discharge Labs No Follow-up Labs Discharge Studies No Follow-up Studies Discharge Diet No qualifying data available. Discharge Activity No qualifying data available. Readmission Risk/Palliative Score LACE Score: 11 (09/04/23 12:59:00) Palliative Total Score: 1 (09/04/23 13:00:00) Digitally Signed by CARLOS NOONAN MD on 09/06/2023 10:20 AM [facility] HospitalPzjkfons55-14-5369 Cardiology Progress note Subjective No acute overnight [...] CARLOS NOONAN MD on 09/05/2023 03:29 PM [facility] HospitalJnwiblml94-73-1224 Cardiology Progress note Subjective No acute overnight [...] CARLOS NOONAN MD on 09/04/2023 12:14 PM [facility] HospitalVqucjlwa63-64-5920 Note Date of Service 09/04/2023 Chief Complaint [...] by ROSY MORALEZ on 09/04/2023 02:58 PM [facility] HospitalKjsofbel94-08-6832 Pulmonary Progress note Date of Service 09/04/2023 [...] exam. Agree with diuresis Philippe Zaragoza M.D., [facility] Digitally Signed by PHILIPPE ZARAGOZA MD on 09/04/2023 01:22 PM [facility] HospitalSmcaifok47-40-7577 Cardiology Progress note Subjective No acute overnight [...] be due to COPD versus CHF exacerbation. [facility] results personally reviewed along with TTE, [...] CARLOS NOONAN MD on 09/04/2023 12:14 PM [facility] HospitalNoatdtas70-02-9618 Note Date of Service 09/04/2023 Chief Complaint [...] by ROSY MORALEZ on 09/04/2023 02:58 PM [facility] HospitalPtqinkkt25-82-7993 Note* Exam Date Time Procedure Performing Provider Status 09/04/23 10:04 AM Echocardiogram, Adult - CV Auth (Verified) [facility] 11-13-2023 Note. MICRO - Microbiology PROCEDURE: [...] Locations *1: This test was performed at: [address], [address] [place] [address] ([place])09-04-2023 Note. MICRO - Microbiology PROCEDURE: Culture Respiratory [...] Locations *1: This test was performed at: [address], [address] [place] [address] ([place])09-04-2023 Note ORIGINAL EXAMINATION: ONE XRAY VIEW OF [...] Sign Date: 09/04/2023 6:42:09 AM Ordering Provider: [facility]11-12-2023 Note Date of Service 09/03/2023 Reason [...] continue to follow-up. Note was written using [employer] string cutter software. Some of the meaning of the words and sentences might have changed during string cutter, if there was ever some confusion about [...] ROSINA BRO MD on 09/03/2023 05:02 PM [facility] HospitalZszlajta13-07-1580 Cardiology Consult note Date of Service 09/03/2023 [...] of this technology. Sonia Canseco DO, MS Bale Breaker Operator (PGY-6) Pager [phone]/ Cortext Problem List/Past Medical History Ongoing No [...] SONIA CANSECO DO on 09/03/2023 08:21 AM [facility] HospitalRbphqdbj17-91-1114 Note* Exam Date Time Procedure Performing Provider Status 09/03/23 11:40 AM Cardiac Catheterization -CV Auth (Verified) [facility] 11-12-2023 Note Date of Service 09/03/2023. Day #2 in MICU Radha Hsu is a 68-year-old female with a past medical history of COPD, bipolar disorder, tobacco abuse, GERD, anxiety, depression, suicidal attempt in the past [2010], and personality disorder.The patient presented to [facility] for shortness of breath. The patient was [...] results, the patient was transferred to the [facility] ICU. During this admission it was determined [...] JHONNY VALENCIA MD on 09/03/2023 11:32 AM [facility] HospitalYdjavqfw26-67-7661 Nurse Progress note Attempted to call patient's , per patient request, to update him on patient's plan of care. did not answer home phone, voicemail box was full and unable to leave a message. Patient provided 's cell phone number. No answer and again unable to leave a message. Digitally Signed by Pamella Tao RN on 09/03/2023 09:17 AM [facility] HospitalAnyzwptp51-09-1475 Cardiology Consult note Date of Service 09/03/2023 [...] of this technology. Sonia Canseco DO, MS Bale Breaker Operator (PGY-6) Pager [phone]/ Cortext Problem List/Past Medical History Ongoing No [...] SONIA CANSECO DO on 09/03/2023 08:21 AM [facility] HospitalUgriiior96-37-2489 NoteSinus rhythm Atrial premature complex Prolonged QT interval T WAVE INVERSION CONCERNING FOR ISCHEMIA Electronic Signature: ADAM MALLORY MD 09/03/2023 16:06:55[facility] 11-11-2023 Note. MICRO - Microbiology PROCEDURE: [...] Locations *1: This test was performed at: [address], [facility] , [facility] ([place])09-02-2023 Note. MICRO - Microbiology PROCEDURE: Blood Culture [...] *1: This test was performed at: [facility], [facility] , [facility] ([facility]09-02-2023 Note. MICRO - Microbiology PROCEDURE: Blood Culture [...] Locations *1: This test was performed at: [address], [facility] , [facility] ([facility]09-02-2023 Note. MICRO - Microbiology PROCEDURE: Blood Culture [...] Locations *1: This test was performed at: [address], [facility] , [facility] ([place])09-02-2023 NoteSinus rhythm Atrial premature complex Probable anterior infarct, age indeterminate Prolonged QT interval Electronic Signature: ADAM MALLORY MD 09/03/[facility]23 [facility]10[facility] NoteSinus rhythm Atrial premature complex Anterior infarct, old Nonspecific T abnormalities, lateral leads Prolonged QT interval Electronic Signature: ADAM MALLORY MD 09/03/2023 16:06:01[facility] 11-11-2023 Evaluation + Plan noteExtracted from: [...] 09/02/23 * Streptococcus Pneumoniae Urine Antig 09/02/23 [facility] 11-11-2023 History and physical note Date [...] JHONNY VALENCIA MD on 09/02/2023 01:24 PM [facility] HospitalUuhdpccy22-65-9991 Note ORIGINAL EXAMINATION: LIMITED ABDOMINAL INWFZNDFDN31/11/2023 12:19 pm COMPARISON: None HISTORY: ORDERING SYSTEM [...] Sign Date: 09/02/2023 2:27:43 PM Ordering Provider: [facility]11-11-2023 NoteSinus rhythm Atrial premature complex Anterior infarct, old Nonspecific T abnormalities, lateral leads Prolonged QT interval Electronic Signature: ADAM MALLORY MD 09/03/2023 16:05:52[facility] 11-11-2023 Note ORIGINAL EXAMINATION: ONE XRAY [...] Sign Date: 09/02/2023 8:06:12 AM Ordering Provider: [facility]11-11-2023 History and physical note Date of Service 09/02/2023 Chief Complaint Shortness of breath History of Present Illness Marcela Hsu is a 68-year-old female with a past medical history of COPD, bipolar disorder, tobacco abuse, GERD, anxiety, depression, suicidal attempt in the past [2011], and personality disorder.The patient presented to [facility] for shortness of breath. The patient was [...] results, the patient was transferred to the [facility] ICU. Of note Echo on 12/27/2016: Ejection [...] was 3.7 on admission The patient's admitting [place] lactic acid was 1.8. We will not [...] PM Digitally Signed by JHONNY VALENCIA MD [facility] note Author Eleazar Valle [facility] Note Date/Time July 16, 2025 10:10am [facility] Medical Records Department [address] [place] [address] [place] [address] Consultation - Director Global Sales 07/16/25811 MR#: [id number] Acct: [id number] Name: ZABRINA HSU Rep #:[id number] : 1955 70 From: Eleazar Valle DO PCP: ESUN Alvarez Status:ADM IN Location: ICU ICU01-1 Assessment [...] antimicrobials and Lasix. [facility]. 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 Reading Location[facility] Chest CTA 07/16/25 03:25 IMPRESSION: No demonstrated PE, or thoracic aortic aneurysm Underlying emphysema with superimposed CHF, pneumonitis, bronchitis, free- flowing bilateral pleural effusions and bibasilar atelectasis ETT tip is in the right mainstem bronchus and should be retracted 3-4 cm, NG tube tip in satisfactory position No suspicious adenopathy Degenerative bony changes [place] Alert: ET tube tip in the SADAF The critical findings in the findings and impression above were relayed directlyby me by telephone to Bernardo Sharif on 07/16/2025 at 6:56 am with readback verification. Reading Location: [facility] Abdomen/Pelvis CT 07/16/25 06:40 IMPRESSION: No suspicious solid organ abnormality, there is atrophy of the right kidney compared to the left but no obstructive uropathy or suspicious solid renal lesion. Retained stool throughout the colon which may be impacted No free intraperitoneal fluid, air, or suspicious adenopathy NG tube tip in the body of the stomach Diffuse atherosclerosis Degenerative bony changes Reading Location: [facility] Charges/Coding Procedures Hospitalists Procedures: 33179 Critical Care 1st Hr 07/16/25 1010 <Electronically signed by Eleazar Valle DO> Cosigner Signature (if applicable): CC: SEUN Ozuna~ Signed [facility] Work Phone: Consult note Author Noelle Yañez [facility] Note Date/Time July 16, 2025 10:25am [facility] Medical Records Department [address] [place] [address] Pharmacokinetic/Renal -Consult 07/16/25 0941 MR#: [id number] Acct: [id number] Name: ZABRINA HSU Rep #:[id number] : 1955 70 From: Noelle Yañez PCP: NATALIIA AlvarezC Status:ADM IN Y Location: ICU ICU01-1 Consult [...] Date Eleazar Valle DO CC: ~ Signed [facility] Work Phone: Consult note Author Noelle Yañez [facility] Note Date/Time July 18, 2025 12:13pm [facility] Medical Records Department [address] [place] [address] Pharmacokinetic/Renal -Consult 07/18/25 1128 MR#: [id number] Acct: [id number] Name: ZABRINA HSU Rep #:[id number] : [...] Date Eleazar Valle DO CC: ~ Signed [facility] Work Phone: Consult note Author Mateo Gonzales [facility] Note Date/Time July 21, 2025 7:34am [facility] Medical Records Department [address] [place] [address] Pharmacokinetic/Renal -Consult 07/20/25 1137 MR#: [id number] Acct: [id number] Name: ZABRINA HSU Rep #:[id number] : [...] Date Eleazar Valle DO CC: ~ Signed [facility] Work Phone: Consult note Author Apple kaiser [facility] Note Date/Time July 22, 2025 1:59pm [facility] Medical Records Department [address] [place] [address] Consultation - Palliative Care 07/22/25 1215 MR#: [id number] Acct: [id number] Name: ZABRINA HSU Rep #:[id number] : 1955 70 From: Apple KOHLI PCP: SEUN Alvarez Status:ADM IN Location: ICU ICU01-1 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 Charges/Coding Palliative Care Palliative Care: 39535 New Pt Consult 80+ min HPI Current [...] as clinical picture evolves. I did update health and social care teacher about patient and family's decision about outpatient [...] of hysterectomy and OA who presents to [facility] ER complaining ofSOB. Ms. Hsu was noted [...] a Healthcare Power No 07/16/25 07:58 of Sound Designer? Do You Want Additional Declined 07/16/25 07:58 Information on Advanced Directives or Healthcare Proxy/DPOA comments: Patient states that they do have legal paperworkand that her , her would be her decision-maker if she is unable to make decisions for herself. Psychosocial/Spiritual Information Living situation/Marital status: Spoke spoke with and 16-year-old grandson. Geographic location: [place] Supports: Family Voodoo/Grazyna or spiritual preference: Restorationism Prior functional status: Patient was unable to [...] 84.7 H, Lymph % (Auto) 8.4 L, [place] % (Auto) 4.1, Eos % (Auto) 0.0, [...] a result of this Palliative Care Encounter: [[id number], [id number] ] minutes were spent in total for [...] care conversations as clinical picture evolves. 07/22/25 2391 <Electronically signed by Apple KOHLI> Cosigner Signature (if applicable): CC: SEUN Ozuna~ Signed [facility] Work Phone: Consult note Author Kendall Doran [facility] Note Date/Time July 26, 2025 4: 11pm [facility] Medical Records Department [address] [place] [address] Consultation - Cardiology 07/26/25 1609 MR#: [id number] Acct: [id number] Name: ZABRINA HSU Rep #:[id number] : 1955 70 From: Kendall be MD PCP: SEUN Alvarez Status:DIS IN Location: [facility] DTY438- 1 Assessment & Plan Assessment/Plan (1) Multifocal atrial tachycardia: PLAN: Patient's heart rate is currently controlled. Continue current medications at this time. She can follow-up with [facility] as an outpatient. HPI Consult [...] improvement in her heart rate. 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 Reading Location: [facility]IL[facility] Risk Score for UA/STEMI Assesmment (YES = 1) Risk Stratification Applicable: No 07/26/25 1611 <Electronically signed by Kendall Doran MD> Cosigner Signature (if applicable): CC: SEUN Ozuna~ Signed [facility] Work Phone: Discharge summary Author Bernardo Sharif [facility] Note Date/Time July 16, 2025 7:03am [facility] Medical Records Department [address] [place] [address] Emergency Department Summary 07/16/25 MR#: [id number] Acct: [id number] Name: ZABRINA HSU Rep #:[id number] : 1955 70 From: Bernardo Small PCP: SEUN Alvarez Status:REG ER Location: ED HPI History of Present Illness Chief Complaint: Shortness of Breath PFSH PFSH Medical History Anxiety 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 Reviewed recent hospitalization. Patient was admitted to [facility] from 06/16/2025 until 06/25/2025 for acute on chronic respiratory failure hypoxia. Acute pulmonary edema, NSTEMI, COPD exacerbation. This time patient suffered respiratory failure required mechanical ventilation. Factors affecting care: As per HPI Social determinants of health: none History obtained from others: EMS Consults: Internal Medicine (Dr. Haile) [facility] Narrative: The patient was initially hypertensive [...] Patient is appropriate for admission here at [facility] to intensive care unit. Dr. Hess added [...] to ICU This note was generated with [employer] dictation software. It may contain incorrectwords, spelling, [...] Provider: Alfonso Ozuna NP Referrals: Alfonso Ozuna TAPER OPERATOR, TAPER OPERATOR-C [Primary Care Provider, Family Practice] Print Language: Zimbabwean What to do if you have Problems For any increased pain, shortness of breath, bleeding, nausea or vomiting, chestpain, or any unexpected problems, contact your Primary Care Provider. Call [facility] ([phone]) or report to the closest Emergency Room. Call 911 if necessary. 07/16/25 0703 <Electronically signed by Bernardo Sharif DO> Cosigner Signature (if applicable): CC: SEUN Ozuna ~ Signed [facility] Work Phone: Evaluation note* Diagnosis Chronic obstructive pulmonary disease, unspecified COPD type (CMS/HCC)- Primary 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, unspecified vessel or lesion type (CMS/HCC) Primary hypertension Unspecified essential hypertension Congestive heart failure, unspecified HF chronicity, unspecified heart failure type (CMS/HCC) documented in this encounter [facility] Work Phone: Evaluation note* Diagnosis Primary hypertension- Primary Unspecified essential hypertension Congestive heart failure, unspecified HF chronicity, unspecified heart failure type 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, unspecified vessel or lesion type Chronic obstructive pulmonary disease, unspecified COPD type (Multi) Health maintenance examination Unspecified general medical examination documented in this encounter [facility] Work Phone: Evaluation note* Diagnosis Onset Date [...] Septembe r 2024 6:21am [facility] Work Phone: Hospital course Narrative No data available for this section [facility] Progress note Author Gerard Santos [facility] Note Date/Time July 16, 2025 12:12pm [facility] Medical Records Department [address] [place] [address] Progress Note - Hospitalist 07/16/25 1200 MR#: [id number] Acct: [id number] Name: ZABRINA HSU Rep #:[id number] : [...] 30.6 L, Lymph % (Auto) 56.5 H, [place] % (Auto) 6.4, Eos % (Auto) 2.7, [...] AST 158 H, ALT 118 H, Alkaline Tcuchvjiggj299 H, Total Creatine Kinase 126, Troponin T [...] Clarity Clear, Urine pH 7.0, Ur Specific [place] 1.005, Urine Protein 30 H, Urine Glucose [...] position No suspicious adenopathy Degenerative bony changes [place] Alert: ET tube tip in the SADAF The critical findings in the findings and impression above were relayed directlyby me by telephone to Bernardo Sharif on 07/16/2025 at 6:56 am with readback verification. Reading Location: [id number] Echocardiogram 07/16/25 06:31 Interpretation Summary Mild concentric [...] Diffuse atherosclerosis Degenerative bony changes Reading Location: [facility] Chest X-Ray 07/16/25 09:05 IMPRESSION: Tubes and [...] Cosigner Signature (if applicable): CC: ~ Signed [facility] Work Phone: Progress note Author Gerard Santos [facility] Note Date/Time July 17, 2025 12:53pm [facility] Medical Records Department [address] [place] [address] Progress Note - Hospitalist 07/17/25703 MR#: [id number] Acct: [id number] Name: ZABRINA HSU Rep #:[id number] : [...] Clarity Clear, Urine pH 7.0, Ur Specific [place] 1.005, Urine Protein 30 H, Urine Glucose [...] Diffuse atherosclerosis Degenerative bony changes Reading Location: [id number] Chest X-Ray 07/16/25 09:05 IMPRESSION: Tubes and [...] at bedside. Charges/Coding Visit Charges Inpatient E&M: 75485 Subs Hosp L2 07/17/25 1253 <Electronically signed by Gerard Santos DO> Cosigner Signature (if applicable): CC: ~ Signed [facility] Work Phone: Progress note Author Eleazar Valle [facility] Note Date/Time July 17, 2025 10:00am [facility] Medical Records Department [address] [place] [address] Progress Note - Director Global Sales 07/17/25 0737 MR#: [id number] Acct: [id number] Name: ZABRINA HSU Rep #:[id number] : [...] Clarity Clear, Urine pH 7.0, Ur Specific [place] 1.005, Urine Protein 30 H, Urine Glucose [...] in the left upper lung. Reading Location: [facility] Chest X-Ray 07/17/25 05:10 IMPRESSION: Tubes and lines in position. There are perihilar infiltrates in the right and left, improved. Reading Location: [facility] Physical Exam Const Constitutional Narrative: The patient [...] sedated on vent Charges/Coding Procedures Hospitalists Procedures: 34915 Critical Care 1st Hr 07/17/25 1000 <Electronically signed by Eleazar Brown DO> Cosigner Signature (if applicable): CC: ~ Signed [facility] Work Phone: Progress note Author Eleazar Valle [facility] Note Date/Time July 18, 2025 9:00am [facility] Medical Records Department [address] [place] [address] Progress Note - Director Global Sales 07/18/25 0739 MR#: [id number] Acct: [id number] Name: ZABRINA HSU Rep #:[id number] : 1955 70 From: Eleazar Valle DO PCP: Alfonso Ozuna NP-C Status:ADM IN Location: ICU ICU01-1 Assessment [...] RDW Coeff of Shivam 15.1 H, Plt [id number], MPV 9.7, Immature Gran % (Auto) 0.400, Neut % (Auto) 84.1 H, Lymph % (Auto)9.1 L, [place] % (Auto) 6.3, Eos % (Auto) 0.0, [...] 88.5 H, Lymph % (Auto) 5.9 L, [place] % (Auto) 4.7, Eos % (Auto) 0.0, [...] in the left upper lung. Reading Location: [facility] Chest X-Ray 07/17/25 05:10 IMPRESSION: Tubes and lines in position. There are perihilar infiltrates in the right and left, improved. [facility] Exam Const Constitutional Narrative: The patient [...] sedated on vent Charges/Coding Procedures Hospitalists Procedures: 96589 Critical Care 1st Hr 07/18/25 0900 <Electronically signed by Eleazar Valle DO> Cosigner Signature (if applicable): CC: ~ Signed [facility] Work Phone: Progress note Author Gerard Santos [facility] Note Date/Time July 18, 2025 12:30pm [facility] Medical Records Department [address] [place] [address] Progress Note - Hospitalist 07/18/25806 MR#: [id number] Acct: [id number] Name: ZABRINA HSU Rep #:[id number] : [...] RDW Coeff of Shivam 15.1 H, Plt Tykgw809, MPV 9.7, Immature Gran % (Auto) 0.400, Neut % (Auto) 84.1 H, Lymph % (Auto)9.1 L, [place] % (Auto) 6.3, Eos % (Auto) 0.0, [...] 88.5 H, Lymph % (Auto) 5.9 L, [place] % (Auto) 4.7, Eos % (Auto) 0.0, [...] IV daily. Charges/Coding Visit Charges Inpatient E&M: 25677 Subs Hosp L2 07/18/25 1230 <Electronically signed by Gerard Santos DO> Cosigner Signature (if applicable): CC: ~ Signed [facility] Work Phone: Progress note Author Gerard Santos [facility] Note Date/Time July 19, 2025 12:35pm [facility] Medical Records Department [address] [place] [address] Progress Note - Hospitalist 07/19/25 0758 MR#: [id number] Acct: [id number] Name: ZABRINA HSU Rep #:[id number] : 1955 70 From: Gerard Santos DO PCP: Alfonso Ozuna TAPER OPERATORNuvia Status:ADM IN Location: ICU ICU01-1 Reason for [...] 90.1 H, Lymph % (Auto) 4.7 L, [place] % (Auto) 4.3, Eos % (Auto) 0.1, [...] detailed. Improvement in perihilar densities. Reading Location: [facility] Physical Exam Const Constitutional Narrative: intubated. sedated. [...] IV daily. Charges/Coding Visit Charges Inpatient E&M: 33106 Subs Hosp L2 07/19/25 1235 <Electronically signed by Gerard Santos DO> Cosigner Signature (if applicable): CC: ~ Signed [facility] Work Phone: Progress note Author Reid Murillo [facility] Note Date/Time July 19, 2025 11:55am [facility] Medical Records Department [address] [place] [address] Progress Note - Director Global Sales 07/19/25 1144 MR#: [id number] Acct: [id number] Name: ZABRINA HSU Rep #:[id number] : [...] 07/16/25 07:59 07/19/25 07:27 IV 0 mls/hr .[id number] PRN Infusion Saline Flush Sodium Chloride 250 mls @ 15 mls/hr 07/16/25 07:59 IV .[id number] PRN Additional IVPB Infusion Fentanyl 100 mls [...] 11:29 Sodium Chloride CONT INF 0.9 mcg/kg/hr .[id number] TIMOTHY 11.4 mls/hr Protocol Titration 0.5 MCG/KG/HR Enteral Nutritional Formula 1,000 mls @ 45 mls/hr 07/17/25 10:05 07/19/25 09:30 Vital Af 1.2 Blake Liquid GT 45 mls/hr .[id number] TIMOTHY Administration Propofol 1,000 mg in 100 [...] Vancomycin Trough/Random Due MC 07/20/25 12:30 DAILY [facility] Lab / Micro Data Attestation: I reviewed [...] 90.1 H, Lymph % (Auto) 4.7 L, [place] % (Auto) 4.3, Eos % (Auto) 0.1, [...] detailed. Improvement in perihilar densities. Reading Location: [facility] Assessment and Plan . Assessment and plan: [facility] Medical Records Department [address] [place] [address] Progress Note - Director Global Sales 07/18/25 0739 MR#: [id number] Acct: [id number] Name: ZABRINA HSU Rep #: [id number] : 1955 70 From: Eleazar Valle DO [...] Cosigner Signature (if applicable): CC: ~ Signed [facility] Work Phone: Progress note Author Gerard Santos [facility] Note Date/Time July 20, 2025 11:57am [facility] Medical Records Department [address] [place] [address] Progress Note - Hospitalist 07/20/25835 MR#: [id number] Acct: [id number] Name: ZABRINA HSU Rep #:[id number] : [...] (Auto) 89.3 H, Lymph % (Auto)5.2 L, [place] % (Auto) 4.5, Eos % (Auto) 0.0, [...] IV daily. Charges/Coding Visit Charges Inpatient E&M: 37187 Subs Hosp L2 07/20/25 1157 <Electronically signed by Gerard Santos DO> Cosigner Signature (if applicable): CC: ~ Signed [facility] Work Phone: Progress note Author Reid Murillo [facility] Note Date/Time July 20, 2025 9:07am [facility] Medical Records Department [address] [place] [address] Progress Note - Director Global Sales 07/20/25899 MR#: [id number] Acct: [id number] Name: ZABRINA HSU Rep #:[id number] : [...] 07/16/25 07:59 07/20/25 06:02 IV 0 mls/hr .[id number] PRN Infusion Saline Flush Sodium Chloride 250 mls @ 15 mls/hr 07/16/25 07:59 IV .[id number] PRN Additional IVPB Infusion Fentanyl 100 mls [...] Af 1.2 Blake Liquid GT Not Given .G70R52U TIMOTHY Propofol 1,000 mg in 100 mls @ 3.06 mls/hr 07/18/25 01:15 07/20/25 00:41 Diprivan CONT INF Not Given .Q12H TIMOTHY Protocol 10 MCG/KG/MIN Vancomycin HCl 1,250 mg/ 275 mls @ 167 mls/hr 07/18/25 12:00 07/19/25 13:10 Sodium Chloride IV Infused Q24H TIMOTHY Infusion Dexmedetomidine HCl 1,000 mcg/ 250 mls @ 6.375 mls/hr 07/19/25 22:00 07/20/2507:00 Sodium Chloride CONT INF 1.5 mcg/kg/hr .[id number] TIMOTHY 19.1 mls/hr Protocol Titration 0.5 MCG/KG/HR [...] 10:00 Quetiapine 25 Mg Tablet GT BID [facility] Protocol Sodium Chloride 10 - 40 ml [...] (Auto) 89.3 H, Lymph % (Auto)5.2 L, [place] % (Auto) 4.5, Eos % (Auto) 0.0, [...] Cosigner Signature (if applicable): CC: ~ Signed [facility] Work Phone: Progress note Author Eleazar Valle [facility] Note Date/Time July 21, 2025 10:38am [facility] Medical Records Department [address] [place] [address] Progress Note - Director Global Sales 07/21/25 0734 MR#: [id number] Acct: [id number] Name: ZABRINA HUS Rep #:[id number] : 1955 70 From: [...] 83.2 H, Lymph % (Auto) 8.8 L, [place] % (Auto) 5.8, Eos % (Auto) 0.1, [...] in the left upper lung. Reading Location: [facility] Chest X-Ray 07/17/25 05:10 IMPRESSION: Tubes and lines in position. There are perihilar infiltrates in the right and left, improved. Reading Location: [facility] Physical Exam Const Constitutional Narrative: The patient [...] follow simple commands. Charges/Coding Procedures Hospitalists Procedures: 64750 Critical Care 1st Hr 07/21/25 1038 <Electronically signed by Eleazar Valle DO> Cosigner Signature (if applicable): CC: ~ Signed [facility] Work Phone: Progress note Author Renee Encarnacion [facility] Note Date/Time July 21, 2025 5:28pm [facility] Medical Records Department [address] [place] [address] Progress Note 07/21/25 1406 MR#: [id number] Acct: [id number] Name: ZABRINA HSU Rep #:[id number] : [...] 83.2 H, Lymph % (Auto) 8.8 L, [place] % (Auto) 5.8, Eos % (Auto) 0.1, [...] prophylaxis: Lovenox Charges/Coding Visit Charges Inpatient E&M: 28265 Subs Hosp L2 07/21/25 3020 <Electronically signed by Renee Encarnacion MD> Renee Encarnacion MD Cosigner Signature (if applicable): CC: ~ Signed [facility] Work Phone: progress note Author Earline Camargo [facility] Note Date/Time July 21, 2025 9:09pm [facility] Medical Records Department [address] [place] [address] Progress Note - Hospitalist 07/21/252058 MR#: [id number] Acct: [id number] Name: ZABRINA HSU Rep #:[id number] : [...] 0.33 07/21/252108 <Electronically signed by Earline Camargo TAPER OPERATOR-C> Cosigner Signature (if applicable): CC: ~ Signed [facility] Work Phone: Prohzsdo note Author Eleazar Valle [facility] Note Date/Time July 22, 2025 8:48am [facility] Medical Records Department [address] [facility] [place] [address] Progress Note - Director Global Sales 07/22/25 0843 MR#: [id number] Acct: [id number] Name: ZABRINA HSU Rep #:[id number] : [...] of diet. This note was generated with Zhenaiation software. It may contain incorrectwords, spelling, and [...] 84.7 H, Lymph % (Auto) 8.4 L, [place] % (Auto) 4.1, Eos % (Auto) 0.0, [...] in the left upper lung. Reading Location: [facility] Chest X-Ray 07/17/25 05:10 IMPRESSION: Tubes and lines in position. There are perihilar infiltrates in the right and left, improved. Reading Location: [facility] Physical Exam Const alert, oriented x3 and [...] affect normal Charges/Coding Visit Charges Inpatient E&M: 75972 Subs Hosp L3 07/22/25 0848 <Electronically signed by Eleazar Valle DO> Cosigner Signature (if applicable): CC: ~ Signed [facility] Work Phone: Progress note Author Renee Encarnacion [facility] Note Date/Time July 22, 2025 6:37pm [facility] Medical Records Department [address] [place] [address] Progress Note 07/22/25 1112 MR#: [id number] Acct: [id number] Name: ZABRINA HSU Rep #:[id number] : [...] 84.7 H, Lymph % (Auto) 8.4 L, [place] % (Auto) 4.1, Eos % (Auto) 0.0, [...] prophylaxis: Lovenox Charges/Coding Visit Charges Inpatient E&M: 39403 Subs Hosp L2 07/22/25 175 <Electronically signed [...] Signature (if applicable): Date cc: ~* Signed [facility] Work Phone: Reason for referral (narrative)* Consultation (Routine) - Authorized Specialty Diagnoses / Procedures Referred By Contac t Referred To Contact Primary Care Procedures Follow Up In Primary Care - Established Elvin Blanc PA-C [address] [place] [address] Referral ID Status Reason Start Date Expiration Date V isits Requested Visits Authorized [id number] Authorized 09/18/2023 09/17/2024 1 1 [facility] Work Phone: Reason for referral (narrative)No reason for referral information [facility] Work Phone: Summary Purpose Family History No Family History Records Found Relationship Condition Age at Onset Recorded Date/T dajuan mother Diabetes mellitus Unknown Advance Directives No Advanced Directives Records Found Advance Directive Response Recorded Date/ Time Do you have a Healthcare Power of Sound Designer? No July 16, 2025 7:58am Chief Complaint and Reason for Visit Chief Complaint Admit Date AE COPD, VFRVB-OH-FYDVSDU RESP FAILURE [facility] 2024 6:21am AE COPD, VMYNY-FA-PAVTLUP RESP FAILURE [facility] 2024 8:12am AE COPD, OBUQU-YM-IXEEPKZ RESP FAILURE S [facility] 2024 12:00pm AE COPD, IDZJV-WE-DVRBGLB RESP FAILURE [facility] 2024 7:04am AE COPD, SHXCY-EQ-MNWHTJW RESP FAILURE [facility] 2024 7:37am AE COPD, RJFCL-WP-EZGYSSX RESP FAILURE [facility] 2024 7:39am AE COPD, HNKAK-ZC-ZCKQCIQ RESP FAILURE [facility] 2024 8:07am AE COPD, XDTVI-EZ-PLNQMYS RESP FAILURE [facility] 2024 7:58am AE COPD, NXRMZ-HB-CIMOGFY RESP FAILURE [facility] 2024 8:36am AE COPD, PAUYW-KQ-VQATFVJ RESP FAILURE [facility] 2024 7:34am AE COPD, MWAOX-HW-TMIUWNR RESP FAILURE [facility] 2024 2:06pm AE COPD, XHSXF-XH-UHJVLKF RESP FAILURE S [facility]2024 8:43am AE COPD, GHIYG-PP-WSJIHOD RESP FAILURE [facility] 2024 11:12am AE COPD, MMXCE-XF-IDUCMUM RESP FAILURE S [facility] 2024 12:15pm Reason for Visit Admit Date Acute hypoxic on chronic hypercapnic res piratory failure July 16, 2025 6:21am Acute respiratory failure with hypoxia a nd hypercapnia July 16, 2025 6:21am Counseling regarding goals of care [facility] 2024 6:21am Elevated troponin July [...] 6:21am Chief Complaint Admit Date AE COPD, SXIXA-RE-BDCSXDI RESP FAILURE S [facility]2024 6:21am AE COPD, WREVV-LM-OIKYHWF RESP FAILURE [facility] 2024 8:12am AE COPD, DYDTQ-VO-MPGDIJY RESP FAILURE S [facility] 2024 12:00pm AE COPD, URAYN-XI-WTIVTBI RESP FAILURE S [facility]2024 7:04am AE COPD, BOGQN-IE-NEUOAQZ RESP FAILURE [facility] 2024 7:37am AE COPD, JNNUP-WD-AVPSEXZ RESP FAILURE [facility] 2024 7:39am AE COPD, BEQGM-WW-YJIPDKB RESP FAILURE S [facility] 2024 8:07am AE COPD, QKDTW-DE-ACHHYXB RESP FAILURE S [facility] 2024 7:58am AE COPD, IJMVW-GO-HTZDFGZ RESP FAILURE S [facility] 2024 8:36am AE COPD, MXJCB-CS-CGCDSUZ RESP FAILURE S [facility] 2024 7:34am AE COPD, PGOAA-TI-MSKBYHN RESP FAILURE S [facility] 2024 2:06pm AE COPD, VJXPI-QV-IGQMRDS RESP FAILURE S e[facility] 2024 8:43am AE COPD, EKAVW-JB-MWAJIWK RESP FAILURE S eptember 2024 11:12am AE COPD, AVISG-AL-PCJKCWE RESP FAILURE S eptember 2024 12:15pm AE COPD, WKKZF-CJ-FONQDUW RESP FAILURE O ctober 2024 7:38am AE COPD, SJSMV-BC-CMROKMK RESP FAILURE O ctober 2024 12:12pm AE COPD, RJJTN-JK-DEWDPJS RESP FAILURE O ctober 2024 5:12pm AE COPD, OTQUS-ZU-UCBOZZD RESP FAILURE O ctober 2024 3:15pm AE COPD, GFNVP-RC-FMAIVWI RESP FAILURE O ctober 2024 12:43pm AE COPD, HAUQV-XK-KQYRGVS RESP FAILURE O ctober 2024 4:09pm Reason [...] section and content) DATE CREATED AUTHOR 11/04/2020 [facility] DATE CREATED AUTHOR AUTHOR'S ORGANIZ ATION 09/03/2023 [facility] DATE CREATED AUTHOR AUTHOR'S ORGANIZ ATION 09/22/2023 [facility] DATE CREATED AUTHOR AUTHOR'S ORGANIZ ATION 07/10/2025 [facility] DATE CREATED AUTHOR AUTHOR'S ORGANIZ ATION 07/11/2025 [facility] DATE CREATED AUTHOR AUTHOR'S ORGANIZ ATION 08/25/2025 [facility] DATE CREATED AUTHOR AUTHOR'S ORGANIZ ATION 08/27/2025 [facility] Patient Care team informatio n (unrecognized section and content) Services Clerk Relationship Specialty Start Date End Date Elvin Blanc PA-C [address] [place] [address] PCP - General Internal Medicine 09/12/23 Fercho Villaseñor DO [address] [place] [address] PCP - [employer] PCP 07/23/23 Services Clerk Relationship Specialty Start Date End Date Kenzie Fontana, HANDSTITCHING MACHINE ARMHOLE FELLER-CLOTH DYEING RANGE TENDER [address] [place] [address] PCP - General Family Medicine 10/03/24 Team Status: Active Member Role/Relationship Status Dates Alfonso Ozuna TAPER OPERATOR, TAPER OPERATOR-C Primary care physician Active Team Status: Active Member Role/Relationship Status Dates Alfonso Ozuna TAPER OPERATOR, TAPER OPERATOR-C Primary care physician Active Start: July 16, [...] Active Start: July 16, 2025 Apple Carvalho TAPER OPERATOR-C Nurse Practitioner Active Start: June Team Status: Active Member Role/Relationship Status Renita Ozuna NP, TAPER OPERATOR-C Primary care physician Active Start: July 16, [...] Practitioner Active Start: July 16, 2025 Dr. Ried Murillo MD Nurse Practitioner Active Start: July [...] July 16, 2025 Dr. Gerard Santos , DO Nurse Practitioner Active Start: July 16, 2025 Team Status: Active Member Role/Relationship Status Dates Alfonso Ozuna TAPER OPERATOR, TAPER OPERATOR-C Primary care physician Active Start: July 16, 2025 Dr. Dashawn Christiansen MD Attending physician Active Start: July 16, 2025 Team Status: Active Member Role/Relationship Status Dates Alfonso Ozuna TAPER OPERATOR, TAPER OPERATOR-C Primary care physician Active Start: July 16, [...] Active Member Role/Relationship Status Dates Alfonso Ozuna TAPER OPERATOR, TAPER OPERATOR-C Primary care physician Active Start: July 17, [...] Active Member Role/Relationship Status Dates Alfonso Ozuna TAPER OPERATOR, TAPER OPERATOR-C Primary care physician Active Start: July 17, [...] Status: Active Member Role/Relationship Status Renita Ozuna TAPER OPERATOR, TAPER OPERATOR-C Primary care physician Active Start: July 18, [...] Active Member Role/Relationship Status Dates Alfonso Ozuna TAPER OPERATOR, TAPER OPERATOR-C Primary care physician Active Start: July 18, [...] Status: Active Member Role/Relationship Status Renita Ozuna TAPER OPERATOR, TAPER OPERATOR-C Primary care physician Active Start: July 19, [...] Member Role/Relationship Status Dates Alfonso Ozuna NP, TAPER OPERATOR-C Primary care physician Active Start: July 20, [...] Active Member Role/Relationship Status Dates Alfonso Ozuna TAPER OPERATOR, TAPER OPERATOR-C Primary care physician Active Start: July 21, [...] Active Member Role/Relationship Status Dates Alfonso Ozuna TAPER OPERATOR, TAPER OPERATOR-C Primary care physician Active Start: July 21, [...] Status: Active Member Role/Relationship Status Renita Ozuna TAPER OPERATOR, TAPER OPERATOR-C Primary care physician Active Start: July 22, [...] Member Role/Relationship Status Dates Alfonso Ozuna NP, TAPER OPERATOR-C Primary care physician Active Start: July 22, [...] Member Role/Relationship Status Dates Alfonso Ozuna NP, TAPER OPERATOR-C Primary care physician Active Start: July 22, [...] Active Start: July 22, 2025 Apple Carvalho TAPER OPERATOR-C Attending physician Active Start: June Apple Carvalho NP-C Nurse Practitioner Active Start: June Team Status: Inactive Member Role/Relationship Status Renita Ozuna NP, TAPER OPERATOR-C Primary care physician Active Start: July 16, [...] End: July 26, 2025 Earline Camargo , TAPER OPERATOR-C Nurse Practitioner Active S tart: July 16, 2025 End: July 26, 2025 Analy Davis TAPER OPERATOR-C Nurse Practitioner Active Start: July 16, 2025 End: July 26, 2025 SHEILA [place] Nurse Practitioner Active Start: July 16, 2025 End: July 26, 2025 Apple Carvalho TAPER OPERATOR-C Nurse Practitioner Active Start: June End: July [...] Status: Active Member Role/Relationship Status Renita Ozuna TAPER OPERATOR, TAPER OPERATOR-C Primary care physician Active Start: July 16, 2025 Dr. Bernardo Sharif , Emergency Departm [...] Practitioner Active Start: July 16, 2025 Dr. Eleaazr Valle , Attending physician Active Start: July [...] Status: Active Member Role/Relationship Status Renita Ozuna TAPER OPERATOR, TAPER OPERATOR-C Primary care physician Active Start: July 17, [...] Active Member Role/Relationship Status Dates Alfonso Ozuna TAPER OPERATOR, TAPER OPERATOR-C Primary care physician Active Start: July 18, [...] S tart: July 18, 2025 Dr. Jack oV MD Nurse Practitioner Active Start: July 18, [...] Active Member Role/Relationship Status Dates Alfonso Ozuna TAPER OPERATOR, TAPER OPERATOR-C Primary care physician Active Start: July 21, [...] Status: Active Member Role/Relationship Status Renita Ozuna TAPER OPERATOR, TAPER OPERATOR-C Primary care physician Active Start: July 22, 2025 Dr. Bernadro Sharif , Emergency Departm ent Physician Active [...] Nurse Practitioner Active Start: July 22, 2025 Aplpe Carvalho NP-C Nurse Practitioner Active Start: June Team Status: Active Member Role/Relationship Status Renita Alfonso Ozuna PANKAJ, TAPER OPERATOR-C Primary care physician Active Start: July 23, [...] Active Start: July 23, 2025 Apple Carvalho TAPER OPERATOR-C Nurse Practitioner Active Start: July 23, 2025 Team Status: Active Member Role/Relationship Status Dates Alfonso Ozuna NP, TAPER OPERATOR-C Primary care physician Active Start: July 23, [...] Active Start: July 23, 2025 Apple Carvalho TAPER OPERATOR-C Nurse Practitioner Active Start: July 23, 2025 [...] Active Member Role/Relationship Status Renita Ozuna NP, TAPER OPERATOR-C Primary care physician Active Start: July 24, [...] tart: July 24, 2025 Analy Davis , TAPER OPERATOR-C Nurse Practitioner Active Start: July 24, 2025 [...] Active Member Role/Relationship Status Dates Alfonso Ozuna TAPER OPERATOR, TAPER OPERATOR-C Primary care physician Active Start: July 25, [...] Active Start: July 25, 2025 Earline Camargo TAPER OPERATOR-C Nurse Practitioner Active S tart: July 25, 2025 Analy Davis TAPER OPERATOR-C Nurse Practitioner Active Start: July 25, 2025 SHEILA [place] Nurse Practitioner Active Start: July 25, 2025 Apple Carvalho TAPER OPERATOR-C Nurse Practitioner Active Start: July 25, 2025 [...] Member Role/Relationship Status Dates Alfonso Ozuna NP, TAPER OPERATOR-C Primary care physician Active Start: July 26, [...] Active Member Role/Relationship Status Dates Alfonso Ozuna TAPER OPERATOR, TAPER OPERATOR-C Primary care physician Active Start: July 26, [...] Active Start: July 26, 2025 Earline Camargo TAPER OPERATOR-C Nurse Practitioner Active S tart: July 26, 2025 Analy Davis TAPER OPERATOR-C Nurse Practitioner Active Start: July 26, 2025 SHEILA [place] Nurse Practitioner Active Start: July 26, 2025 Apple Carvalho TAPER OPERATOR-C Nurse Practitioner Active Start: July 26, 2025 [...] Practitioner Active Start: July 26, 2025 Dr. Alonos Mcknight MD Nurse Practitioner Active Start: July [...] as a new patient and transferring from [place].Patient dx with COPD, seen in ER last [...] BE BASED ON THE PRIMARY CLINICAL RECORDS. [employer] provides no warranty or guarantee of the accuracy or completeness of information in this document.
[2025-10-03 02:06] LABS: Troponin T High Sens 2 HR 46 ng/L (<=14)
[2025-10-03 02:27] LABS: Magnesium 2.5 mg/dL (1.5-2.2)
[2025-10-03 03:13] LABS: Reflex Lactate? Y
[2025-10-03 03:56] LABS: Hematocrit 35.8 % (37-47); Hemoglobin 11.3 g/dL (12.0-15.0); Immature Granulocytes Count 0.170 X10^3/uL (0.0-0.0); Mean Corp Hgb Conc 31.6 g/dL (32-36); Mean Corpuscular Volume 84.4 fL (81-99); Mean Platelet Vol. 9.0 fl (6.2-12.0); NRBC Flagged by Analyzer 0 % (0-5); POSITIVE DIFFERENTIAL YES; Platelet Count 418 K/mm3 (150-450); RBC Distribution Width CV 15.7 % (11.6-14.6); RBC Distribution Width SD 48.3 fl (35.1-43.9); Red Blood Count 4.24 M/mm3 (4.2-5.4); White Blood Count 17.6 K/mm3 (4.4-11.0)
[2025-10-03 04:04] LABS: Procalcitonin 0.05 ng/mL (<=0.10)
[2025-10-03] MEDS: 0.9% Normal Saline (250mL Bag) 250 ML 15 ML IV (04:08)
[2025-10-03] MEDS: Azithromycin 500 MG in 0.9% Normal Saline (250mL Bag) 250 ML 250 MG IV ×2 (04:09→22:09)
[2025-10-03] MEDS: 0.9% Saline Lock 10 ML Syringe IV ×3 (04:11→21:18)
[2025-10-03 04:14] LABS: AST(SGOT) 37 U/L (<=31); Alanine Aminotransfer ALT/SGPT 19 U/L (<=34); Albumin, Serum 3.8 g/dL (3.4-4.8); Alkaline Phosphatase 101 U/L (35-104); Anion Gap 15 (5-15); BUN 25 mg/dL (4-19); BUN/Creat Ratio 23.2 RATIO (10-20); Calcium,Total 8.6 mg/dL (7.6-11.0); Carbon Dioxide 28.7 mmol/L (21.0-32.0); Chloride 95 mmol/L (98-108); Estimated Creatinine Clearance 37.65 ml/min (50-250); Globulin 3.2 g/dL (2.2-4.2); Glucose 135 mg/dL (70-99); Potassium 3.3 mmol/L (3.3-5.1)
[2025-10-03] MEDS: Dorzolamide 2% 10ml Bottle 1 DRP OPHTHALMIC ×3 (06:37→21:23)
[2025-10-03] MEDS: BRIMONIDINE 0.2% 5ML BOTTLE 1 DRP OPHTHALMIC ×3 (06:38→21:23)
--- NOTE | 2025-10-03 07:11 | EX.PCM.CONCC ---
Assessment & Plan Assessment/Plan (1) COPD exacerbation: (2) Heart failure: (3) Acute on chronic respiratory failure with hypoxia and hypercapnia: PLAN: Plan RECOMMENDATIONS: 1. Continue to wean supplemental oxygen as tolerated. 2. Continue PAP therapy as needed. 3. Continue scheduled bronchodilators and IV steroids. 4. Continue empiric antimicrobials. 5. Diuresis, as tolerated by hemodynamics and renal function. 6. Lovenox for DVT prophylaxis. 7. Given the patient's CODE STATUS, the patient can be transferred out of the medical intensive care unit from my perspective. IMPRESSIONS: 1. Acute respiratory failure with hypoxemia and hypercapnia Most likely multifactorial with COPD and congestive heart failure contributing. The patient has a longstanding tobacco abuse history along with a baseline oxygen requirement of 4 L/min via nasal cannula. While the patient was initially being maintained on noninvasive positive pressure ventilatory support, she has since been weaned to nasal cannula oxygen, which we will wean as tolerated. I agree with continuing empiric antibiotics along with bronchodilators and steroids. Will initiate gentle diuresis, as tolerated by hemodynamics and renal function. Although the patient was previously followed in the pulmonary medicine clinic she has been lost to follow-up since 2020. She subsequently failed to show up for her last scheduled appointment in August 2025. 2. History of coronary artery disease status post PCI/history of hypertrophic cardiomyopathy/valvular heart disease Continue diuretics as tolerated by hemodynamics and renal function. 3. Chronic tobacco dependency/depression/glaucoma/hyperlipidemia Complicates care, management, recovery and prognosis. Continue supportive measures as noted above. PT/OT to work with the patient. CODE STATUS: DNR CCA without intubation This note was generated with [employer] dictation software. It may contain incorrect words, spelling, and punctuation that were not noted in checking the note before signing. HPI Consult Data Date of Consult: 10/03/25 HPI Narrative Reason for Consultation: Acute on chronic respiratory failure HPI Narrative: The patient is a 70-year-old female, with a history as outlined below, who presented to the emergency department on October 02 with complaints of shortness of breath and wheezing. The patient has a known history of COPD and chronic nicotine dependency, having been evaluated in the pulmonary medicine clinic back in 2020. The patient has been lost to follow-up since that time. Her medical history is also significant for coronary artery disease status post PCI along with an atypical variant of hypertrophic cardiomyopathy. The patient reported that she utilizes 4 L/min of supplemental oxygen at her baseline. She was last admitted to the hospital in June 2025 with a COPD exacerbation. The patient was scheduled to follow-up in the pulmonary medicine clinic after her discharge on August 26. However, the patient failed to show up for her appointment. On presentation to the emergency department, the patient was noted to be afebrile but was tachycardic and tachypneic with an initial oxygen saturation of 87% on 4 L/min. The patient was subsequently placed on BiPAP therapy. Initial laboratory evaluation revealed a white blood cell count of 14,000. Hemoglobin and platelet count were stable. Arterial blood gas was notable for a pH of 7.15 with a pCO2 of 79 and pO2 of 80. Lactate was elevated at 5.5. Troponin was increased at 46 with a BNP of 2610. Procalcitonin was unremarkable. Chest x-ray demonstrated bilateral eczematous changes and hazy interstitial infiltrates, concerning for edema. COVID, influenza and RSV PCR's were negative. Respiratory viral panel was negative. The patient was initiated on antimicrobials, bronchodilators and steroids. After my evaluation of the patient this morning, she was able to be weaned from BiPAP and placed on nasal cannula oxygen at 5 L/min. FOR[facility]LY [facility] Medical History Tobacco use Chronic hypoxic respiratory failure, on home oxygen therapy PAF (paroxysmal atrial fibrillation) COPD (chronic obstructive pulmonary disease) 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 Non-rheumatic mitral regurgitation Depression Anxiety Pulmonary hypertension Essential hypertension Pure hypercholesterolemia Atherosclerotic heart disease of [place] coronary artery without angina pectoris Home Medications ?Medication ?Instructions ?Recorded ?Last Taken ?Type aspirin 81 mg tablet,delayed 81 mg PO DAILY heart 07/08/19 Unknown History release (Adult Low Dose Aspirin) atorvastatin 40 mg tablet 40 mg PO QHS cholestrol 07/08/19 Unknown History nitroglycerin 0.4 mg sublingual 0.4 mg sublingual Q5-15M PRN chest 07/08/19 Unknown History tablet pain oxybutynin chloride 10 mg 10 mg PO DAILY overactive bladd 07/08/19 Unknown History tablet,extended release 24 hr albuterol sulfate 90 mcg/actuation 2 puff inhalation Q4H PRN 12/23/20 Unknown Rx aerosol inhaler (Ventolin HFA) shortness of breath or wheezing #8.5 grams brimonidine 0.2 % eye drops 1 drp ophthalmic (eye) DAILY eyes 06/16/21 Unknown History dorzolamide 2 % eye drops 1 drp ophthalmic (eye) TID eyes 06/16/21 Unknown History lisinopril 20 mg tablet 20 mg PO DAILY #90 tabs 06/16/21 Unknown Rx clopidogrel 75 mg tablet 75 mg PO DAILY heart 07/17/25 Unknown History furosemide 40 mg tablet 40 mg PO DAILY heart 07/17/25 Unknown History OXYGEN - Supplemental ([facility] COPD 07/18/25 Unknown History INFORMATIONAL USE ONLY) amlodipine 10 mg tablet 10 mg PO DAILY #30 tabs 07/26/25 Unknown Rx metoprolol tartrate 50 mg tablet 50 mg PO BID #60 tabs 07/26/25 Unknown Rx prednisone 20 mg tablet 40 mg (2 x 20 mg) PO BREAKFAST #2 07/26/25 Unknown Rx tabs potassium chloride 20 mEq 20 meq PO BID 10/03/25 Unknown History tablet,extended release(part/cryst) Allergy/AdvReac Type Severity Reaction Status Date / Time No Known Allergies Allergy Verified 10/02/25 22:59 Family History Mother Diabetes Father No problems noted. Surgical History History of coronary artery stent placement (01/02/17) History of hysterectomy Social History household members: spouse Smoking Status: Current every day smoker tobacco type: cigarettes Tobacco: How many years used: 46 second hand exposure: Yes alcohol intake: never substance use type: does not use caffeine: Yes Type: coffee ROS ROS Narrative 10 systems were reviewed with pertinent positives as noted in the HPI above. Physical Exam Const alert, oriented x3 and no apparent distress General Appearance: cooperative HEENT normocephalic and head/scalp atraumatic Eyes PERRL, EOMs intact bilaterally and conjunctivae normal Neck supple General: trachea midline Chest Chest Narrative: Increased AP diameter Resp Effort and Inspection: able to speak in complete sentences and tachypneic Auscultation: rales and diminished lung sounds Cardio S1 normal heart sound and S2 normal heart sound Rate: tachycardic GI normal to inspection, nondistended, normoactive bowel sounds Extremity no clubbing, cyanosis or edema Skin no rashes or lesions noted Neuro CN's II-XII intact bilaterally, moves all extremities and no focal motor deficits Psych cooperative and affect normal Lab / Micro Data 10/03/25 03:45 10/03/25 03:45 Labs: Laboratory Results - last 24 hr 10/02/25 23:00: WBC 14.2 H, RBC 4.69, Hgb 12.7, Hct 40.4, MCV 86.1, MCH 27.1, MCHC 31.4 L, RDW Std Deviation 50.8 H, RDW Coeff of Shivam 16.1 H, Plt Count 481 H, MPV 10.1, Immature Gran % (Auto) 0.300, Neut % (Auto) 34.7 L, Lymph % (Auto) 53.4 H, Crisp % (Auto) 8.7, Eos % (Auto) 2.0, Baso % (Auto) 0.9, Absolute Neuts (auto) 4.9, Absolute Lymphs (auto) 7.60 H, Total Counted 100, Neutrophils % (Manual) 40 L, Lymphocytes % (Manual) 55 H, Monocytes % (Manual) 4, Basophils % (Manual) 1, Nucleated RBC % 0, Differential Comment SCANNED, Diff Path Review February, Sodium 135, Potassium 3.6, Chloride 91 L, Carbon Dioxide 24.6, Anion Gap 20 H, BUN 26 H, Creatinine 1.23 H, Estim Creat Clear Calc 36.16 L, Est GFR (MDRD) Non-Af 47 L, BUN/Creatinine Ratio 21.2 H, Glucose 192 H, Calcium 9.4, Total Bilirubin 0.31, AST 39 H, ALT 27, Alkaline Phosphatase 112 H, Troponin T High Sens 31 H D, NT pro BNP II 2610 H, Total Protein 8.1, Albumin 4.3, Globulin 3.7, Albumin/Globulin Ratio 1.2 10/02/25 23:09: Lactic Acid 5.5 H* 10/03/25 01:15: Phosphorus 4.1, Magnesium 2.5 H, Troponin T Hi Sens 2 Hr 46 H, Procalcitonin 0.05 10/03/25 03:45: WBC 17.6 H, RBC 4.24, Hgb 11.3 L, Hct 35.8 L, MCV 84.4, MCH 26.7 L, MCHC 31.6 L, RDW Std Deviation 48.3 H, RDW Coeff of Shivam 15.7 H, Plt Count 418, MPV 9.0, Immature Gran % (Auto) 1.000 H, Neut % (Auto) 93.4 H, Lymph % (Auto) 2.8 L, Crisp % (Auto) 2.5, Eos % (Auto) 0.0, Baso % (Auto) 0.3, Absolute Neuts (auto) 16.4 H, Absolute Lymphs (auto) 0.49 L, Nucleated RBC % 0, Sodium 138, Potassium 3.3, Chloride 95 L, Carbon Dioxide 28.7, Anion Gap 15, BUN 25 H, Creatinine 1.06, Estim Creat Clear Calc 37.65 L, Est GFR (MDRD) Non-Af 56 L, BUN/Creatinine Ratio 23.2 H, Glucose 135 H, Lactic Acid 1.7, Calcium 8.6, Total Bilirubin 0.24, AST 37 H, ALT 19, Alkaline Phosphatase 101, Total Protein 6.9, Albumin 3.8, Globulin 3.2, Albumin/Globulin Ratio 1.2 Micro: Microbiology 10/03/25 01:39 Urine, Random Streptococcus pneumoniae Antigen (M - Final 10/03/25 01:39 Urine, Clean Catch Legionella Antigen - Final 10/03/25 00:05 Mucosa - Nose SARS-CoV-2, Influenza & RSV (PCR) - Final ABG Data ABG results: ABG 10/02/25 10/03/25 23:20 01:20 Specimen Type ART JACQUI Sample Site L Radial Not entered pH 7.15 L* Bicarbonate Actual 27.5 H Total CO2 30 Base Excess -1 O2 Saturation 91 L O2 % 50.0 40.0 ABG pCO2 79.4 H* ABG pO2 80 VBG pH 7.33 VBG pO2 41 H VBG HCO3 33 H VBG Total CO2 35 H VBG O2 Sat (Calc) 71 H VBG Base Excess 7 H POC Mix VBG pCO2 Pt Tmp 62.9 H Respiration Rate 12 14 O2 Delivery Device BiPAP BiPAP Vent Mode Not entered Tidal Volume 550.0 POC PEEP 8 8 Peak Inspir Pressure 16 Crit Call To/Read Back Yes Blood Gas Notified Whom Dr Albarran Blood Gas Notified Time 23:23:35 Clinical Comments [facility] Imaging Radiology Impression Chest X-Ray 12/11/25 23:35 IMPRESSION: Moderate-advanced chronic interstitial emphysematous lung changes, with diffuse hazy airspace opacities which may reflect a superimposed infectious/inflammatory process. Reading Location: [id number] Charges/Coding Visit Charges Inpatient E&M: 42603 Init Hosp L3
[2025-10-03] MEDS: Aspirin E.C. 81 MG Tablet PO (09:46)
--- NOTE | 2025-10-03 11:20 | CASEMGMT ---
Social Work- SW met with pt to complete SDOH assessment. SW introduced self and role; pt agreeable to meeting. Pt reports no concerns; states spouse is [facility] with [facility] and they are connected with [facility]. Pt would benefit from assistance in the home with personal care; SW provided information on [facility]. SW also provided resources on food, financial, and transportation in the event that they are needed in the future. Pt reports no HCPOA; does not wish to complete at this time. Pt agreeable to spouse being added as contact; SW entered spouse's information into system. SW remains available to follow. TANYA Akers
--- NOTE | 2025-10-03 12:00 | CASEMGMT ---
Addendum entered by Fern Cormier 10/03/25 16:02: No call back received from Graciela @ [facility] re: f/u on referral she sent to [facility] for palliative care. GERARDO LENZ placed call to Graciela @ this time. No answer. VM left w/her to f/u with pt's CM @ [facility] on Monday, as this RN YOANNA will not be working. Addendum entered by Fern Cormier 10/03/25 15:43: Stroke alert just called for pt at this time. GERARDO LENZ did not call pt's family to notify them of appt w/Adriana Wiggins NP. Family to be updated at a later time. Addendum entered by Fern Cormier 10/03/25 15:42: Appt scheduled @ [facility] w/Sobeida Wiggins NP, for 10/31/2025 @ 11:15 AM. This was added to pt's dc plan. Original Note: RN?CM?ASSESSMENT ? RN?CM?to room to meet with patient for initial transition planning/care coordination?assessment.?RN?CM?introduced self and role at [facility].? Pt voices understanding and consents to?assessment?at this time.? Pt resting in bed in no distress at this time.? , Dave, and son, Dave Gaming, in room visiting. Pt was awake at beginning of assessment and approved for & son to be in room during assessment, but then pt fell asleep. Most of the following info obtained from and son. Care providers, pharmacy, and demographics verified/updated at this time. Strata: 2 PCP: Melissa Ozuna NP Specialists: Pt has seen Dr Valle/[facility], in the past. An appt was scheduled for 08/26 during last admission but per [facility], pt was a no-call/no-show. Per Graciela @ [facility], this is the 1st no-call/no-show for several yrs and they have a (3) no-call/no-show policy and will dc a pt after that. Family made aware. Per sonDave Jr, he picked up pt from [facility] @ discharge and states they did not inform him about an appt @ [facility] & he was not aware of same. RN CM informed son, Dave Gaming, if an appt is scheduled @ [facility] today, this RN CM will notify him of date/time of appt. Palliative: During pt's last admission to [facility], a referral was sent to [facility] in Jul (2024), but [facility] is not In-network w/pt's insurance. They were going to try and find another provided. and son state they do not know anything about this. Discussed palliative care and they feel this would be beneficial to pt. Call placed to Graciela @ [facility]. Per Graciela, she sent a referral to [facility] 07/25, but has not heard back from them. She will f/u on this today and call this RN CM back. Preferred Pharmacy: [facility] Insurance: [facility] Prescription Benefit: Yes LNOK: Dave Dave (), Dave Gaming (Son), Mustapha (Son), Juan (Son), Jeff (GS). Vita was listed on pt's demographics, but and son state pt they are no longer talking. asked for Vita's contact info be removed from pt's chart and pt agreeable. Info removed per request. Living Arrangements: Pt lives with her and 16 y/o GS in a mobile home with 3 steps to enter. ADLs/IADLs: Per , pt able to dress self. He states she has not been in their tub shower for approx a year, stating she just spit bathes. states pt manages her own medications. They used to go grocery shopping together, but he states, d/t pt's weakness & no energy, pt has not left the house for about a month. He states she has had even more weakness the past 5 days. states he does most home mgnt tasks. They do get home delivered meals at times. Transportation: SonDave Jr. Occasionally neighbors will assist. Son states, if pt able to dc home, he will be taking her home and he can assist pt up the stairs. DME: Home oxygen through [employer]. states she has been wearing it @ 3 L/M. Per [employer], home O2 orders are for 2 L/M. Pt has a concentrator & portable tanks. states, if pt able to dc home, they can bring in a portable tank for pt to go home on. Pt has a walker but does not usually use it, stating she has been furniture walking recently. She also has a shower chair, but has not been using that d/t has not been showering. not sure if they have a pulse ox. GERARDO LENZ did recommend they get one, if not, and made aware of places this can be purchased. Per , pt does not have her own inhaler, stating she has been using his. Will notify hospitalist. HHC/SNF: Pt has been @ [facility] (Jul 2025, for approx one week to 10 days). She has also had [facility]. Discussed discharge plan. Per , if pt too weak and not safely to discharge home, they would be amenable to SNF, stating [facility] would be 1st preference and denies wanting list of other SNF options unless [facility] unable to accept her. If she is able to dc home, they would want [facility] again, as well, and denies wanting list of other HHC options unless [facility] unable to accept her. PLAN: TBD, SNF vs HHC, pending pt's progress and ability. PT/OT evals pending. Pritesh MARY RN, CM
--- NOTE | 2025-10-03 15:50 | CT_ITS ---
PROCEDURE: STROKE BRAIN/HEAD WITHOUT CONT 10/03/2025 REASON FOR EXAM: NEURO SYMPTOMS TECHNIQUE: Procedure Code: CTBR.ST Modality: CT Procedure: STROKE BRAIN/HEAD WITHOUT CONT Coronal and Sagittal reconstruction series were provided. One or more dose reduction techniques were used (e.g., Automated exposure control, adjustment of the mA and/or kV according to patient size, use of iterative reconstruction technique. RADIATION DOSE SUMMARY: CTDlvol: 44.99, 44.99 mGy DLP: 779 mGycm COMPARISON: 07/16/2025 FINDINGS: BRAIN: No acute intraparenchymal hemorrhage. No mass lesion. No CT evidence for acute territorial infarct. No midline shift or extra-axial collection. Mild cerebral volume loss with corresponding ventricular prominence. Patchy periventricular white matter low attenuation, likely microvascular ischemic changes. Small remote right parietal lobe infarct, unchanged. Old left cerebellar and bilateral basal ganglia and thalamic lacunar infarcts again seen. VENTRICLES: No hydrocephalus. ORBITS: The orbits are unremarkable. SINUSES AND MASTOIDS: The paranasal sinuses and mastoid air cells are clear. SOFT TISSUES: No acute abnormality seen. BONES: No acute osseous abnormality seen. OTHER: Carotid siphon calcification bilaterally. CT/STROKE Brain/Head without Cont IMPRESSION: 1. No acute intracranial abnormality. 2. Age-related senescent changes. Reading Location: [id number]
--- NOTE | 2025-10-03 15:57 | CT_ITS ---
PROCEDURE: STROKE CTA HEAD AND NECK W/CON 10/03/2025 REASON FOR EXAM: NEURO SYMPTOMS TECHNIQUE: Procedure Code: CTCTA.ST.HN Modality: CT Procedure: STROKE CTA HEAD AND NECK W/CON Axial CTA images of the head and neck performed with intravenous contrast. MIP reconstructed images were created and reviewed. Note: Per PQRS, the description of internal carotid artery percent stenosis, including 0 percent or normal exam, is based on [place] Symptomatic Carotid Endarterectomy Trial (NASCET) criteria. CONTRAST: Isovue 370 VOLUME: 100 mL One or more dose reduction techniques were used (e.g., Automated exposure control, adjustment of the mA and/or kV according to patient size, use of iterative reconstruction technique). RADIATION DOSE SUMMARY: CTDlvol: 7.84, 11.93 mGy DLP: 434 mGycm COMPARISON: None. FINDINGS: CTA HEAD: INTERNAL CAROTID ARTERIES (ICA) No significant stenosis. No occlusion. No aneurysm. Diffuse carotid siphon calcification bilaterally. ANTERIOR CEREBRAL ARTERIES (MICHELLE) No significant stenosis. No occlusion. No aneurysm. MIDDLE CEREBRAL ARTERIES (MCA) No significant stenosis. No occlusion. No aneurysm. POSTERIOR CEREBRAL ARTERIES (SHIPPING/RECEIVING MANAGER) No significant stenosis. No occlusion. No aneurysm. BASILAR ARTERY No significant stenosis. No occlusion. No aneurysm. VERTEBRAL ARTERIES No significant stenosis. No dissection or occlusion. VENOUS STRUCTURES Patent. BONES No acute osseous abnormality. CTA NECK: COMMON CAROTID ARTERIES (CCA) Limited evaluation of the proximal right CCA due to adjacent beam hardening artifact. Scattered calcified atherosclerosis bilaterally with stenosis at the bilateral bifurcations, approximately 80% on the right and 70% on the left. No dissection or occlusion. INTERNAL CAROTID ARTERIES Calcified atherosclerosis in the proximal ICAs bilaterally, both with approximately 70% stenosis at the origins. No dissection or occlusion. VERTEBRAL ARTERIES No dissection or occlusion. No significant stenosis on the right. Scattered calcified atherosclerosis on the left with focal stenosis at the origin. SUBCLAVIAN ARTERIES No occlusion. Extensive calcified atherosclerosis in the left proximal subclavian artery with up to 70% stenosis. No significant stenosis on the right. SOFT TISSUES No acute finding. No masses or lymphadenopathy. BONES No acute osseous abnormality. Degenerative changes of the spine. OTHER Moderate centrilobular emphysema. Right upper lobe calcified granuloma. Biapical pleural-parenchymal scarring, suggesting remote granulomatous organism exposure. CT/STROKE CTA Head AND Neck W/Con IMPRESSION: 1. No arterial occlusion or dissection. 2. No significant stenosis within the head. No evidence of intracranial aneury sm. 3. Carotid bulb and ICA origin stenosis bilaterally (up to ~ 80% right; 70% le ft). 4. Left proximal subclavian artery stenosis (~70%) with focal left vertebral a rtery origin stenosis. Reading Location: [id number]
--- NOTE | 2025-10-03 16:20 | NURSING ---
Dr. Pimentel notified Dr. Kimberlee Craig, updated on patient
--- NOTE | 2025-10-03 16:22 | MRI_ITS ---
PROCEDURE: MRI BRAIN WITHOUT CONTRAST 10/03/2025 REASON FOR EXAM: SUBACUTE STROKES TECHNIQUE: Procedure Code: MRIBR Modality: MR Procedure: BRAIN WITHOUT CONTRAST Multiplanar and multisequential MRI of the brain was performed without contrast. COMPARISON: CT head/angiography same day 10/03/2025. FINDINGS: Several scattered small foci of acute-subacute infarct throughout the right cerebral hemisphere with a couple foci involving the right subinsular white matter, and a few small foci involving the left cerebellar hemisphere, likely embolic (see sutherland images). No large territorial infarct. Motion artifact significantly degrades the T2 FLAIR sequence. Moderate-advanced generalized brain parenchymal volume loss and chronic small-vessel ischemic-gliotic changes elsewhere with multiple scattered chronic lacunar infarcts in the bilateral sanchez radiata white matter, bilateral basal ganglia including the bilateral putamina and thalamic nuclei, and bilateral cerebellar hemispheres. Chronic hemosiderin staining and/or microhemorrhage associated with a number of these old infarct foci. No evidence of acute intracranial hemorrhage, extra-axial collection, mass- effect or midline shift. Major intracranial vascular flow voids appear grossly preserved. Absent [place] ocular lenses. Well-aerated paranasal sinuses and bilateral mastoid air cells. MRI/Brain without Contrast IMPRESSION: Multiple scattered small foci of likely embolic acute-subacute infarcts through out the right cerebral hemisphere and in the left cerebellar hemisphere. Background of moderate-advanced chronic small-vessel isc hemic changes with numerous old lacunar infarcts throughout the sanchez radiata white matter, bilateral basal ganglia, and bilate ral cerebellar hemispheres. No acute hemorrhage or mass-effect. Reading Location: [id number]
--- NOTE | 2025-10-03 16:22 | ECHOL_ITS ---
Reason For Study Reason For Study: CVA Procedure This was a limited 2D transthoracic echocardiogram. Exam performed portable in ICU/CCU. Left Ventricle Normal LV size. The estimated ejection fraction is 65 %. Unable to assess diastolic dysfunction. No regional wall motion abnormalities noted. Right Ventricle Normal RV size. Normal systolic function. Atria The left and right atria are normal. No doppler evidence for ASD. Mitral Valve There is severe mitral annular calcification. There is no mitral valve stenosis. Trivial mitral valve insufficiency. Tricuspid Valve There is no tricuspid stenosis. Trivial tricuspid valve insufficiency. Pulmonary artery systolic pressure is 40 mmHg. Aortic Valve Aortic sclerosis, no stenosis. There is no aortic stenosis. No aortic valve insufficiency. Pulmonic Valve There is no pulmonic valvular stenosis. No pulmonic valve insufficiency. Great Vessels Normal sized aortic root. Pericardium/Pleural No pericardial effusion. MMode/2D Measurements & Calculations LVIDd: 4.1 cm IVSd: 1.2 cm LVAd ap4: 23.2 cm2 LVIDs: 2.5 cm LVPWd: 1.3 cm LVLd ap4: 6.7 cm FS: 38.5 % EDV(MOD-sp4): 66.3 ml EDV(sp4-el): 68.4 ml LVAs ap4: 13.2 cm2 LVLs ap4: 5.5 cm ESV(MOD-sp4): 26.7 ml ESV(sp4-el): 27.0 ml EF(MOD-sp4): 59.8 % EF(sp4-el): 60.5 % SV(MOD-sp4): 39.6 ml SV(sp4-el): 41.4 ml SI(MOD-sp4): 26.6 ml/m2 Doppler Measurements & Calculations TR max danie: 300.7 cm/sec TR max P.2 mmHg ECHO/Echo, Limited Study Interpretation Summary The estimated ejection fraction is 65 %. Unable to assess diastolic dysfunction. Trivial mitral valve insufficiency. Ordering Physician: Stoney Michael Referring Physician: Melissa Ozuna Performed By: Leticia López, SHARLA, RVT
--- NOTE | 2025-10-03 16:43 | NURSING ---
Patient was in CT scan for CT and CTA for the 15:55 NIHSS was performed at 16:00 when patient was out of the CT scanner.
--- NOTE | 2025-10-03 18:11 | PCM.HOSP.N ---
Hospitalist Note Patient was seen and examined today, she was transitioned from BiPAP over to nasal cannula oxygen and made PCU status. I talked briefly with critical care about her care today. This afternoon patient had an episode where she did not speak and was not able to lift her leg or arm, stroke team was called and the patient underwent a CT of the head and neck and a CT of the brain. Telestroke neurologist felt that the patient had multiple small infarcts that were subacute, the radiology read out disagreed with this and said that these infarcts were old compared with a previous CT of the head in June of this year. CTA of the head and neck did show some vascular disease with an occlusion of 80% in the right carotid bulb and 70% of the left carotid bulb. There was left proximal subclavian artery stenosis of approximately 70%, no significant stenosis was noted within the head. Was recommended that the patient undergo an MRI and have an echocardiogram which I ordered, patient is already on Plavix and aspirin. There was a notation in the emergency room documentation by the ER doc that the patient had atrial fibrillation in the emergency room-I reviewed the EKG and it looks to me to be a tachycardia with a regular rate. According to the patient's medical record, she has a history of multifocal atrial tachycardia. I have reviewed the patient's last lipid profile and her LDL cholesterol was elevated so I have decided to increase her Lipitor to 80 mg a day. PT and OT will continue to see the patient
--- NOTE | 2025-10-03 18:26 | NURSING ---
nurse spent last 45 min with patient at mri had to give iv ativan back to room now resting
[2025-10-03] MEDS: 0.9% Normal Saline (500mL Bag) 500 ML 999 ML IV (18:30)
[2025-10-04] VITALS (20 sets, daily range): BP systolic 83–145; BP diastolic 40–78; PULSE 68–86; RESP 14–32; TEMP 36.2–36.8; O2SAT 93–100; BMI 17.8
[2025-10-04] MEDS: BRIMONIDINE 0.2% 5ML BOTTLE 1 DRP OPHTHALMIC ×3 (04:42→22:33)
[2025-10-04] MEDS: Dorzolamide 2% 10ml Bottle 1 DRP OPHTHALMIC ×3 (04:42→22:33)
[2025-10-04] MEDS: 0.9% Saline Lock 10 ML Syringe IV (04:42)
[2025-10-04] MEDS: Aspirin E.C. 81 MG Tablet PO (09:28)
[2025-10-04] MEDS: Ensure Plus High Protein 120 ML LIQUID PO ×2 (09:28→22:31)
[2025-10-04] MEDS: FLU VACCINE HIGH DOSE 25-26(65YR UP) 180 MCG/0.5 ML SYRINGE IM (09:29)
--- NOTE | 2025-10-04 10:29 | STROKE.PNOTE ---
Objective Data Objective Data Vital Signs: Vital Signs Temp Pulse Resp BP Pulse Ox O2 Del Method O2 Flow Rate 97.8 F 83 18 95/47 L 100 Nasal Cannula 3 10/04/25 07:00 10/04/25 09:21 10/04/25 09:00 10/04/25 09:21 10/04/25 09:00 10/04/25 09:00 10/04/25 09:00 FiO2 30 10/04/25 04:02 Oxygen Flow Rate (L/min) 3 Oxygen Delivery Method Nasal Cannula Weight: 47.128 kg Body Mass Index (BMI) 17.8 Intake & Output: Intake and Output for Last 24 Hours 10/02/25 10/03/25 10/04/25 23:59 23:59 23:59 Intake Total 0 / 0 1460 / 1660 450 / 450 Output Total 300 / 300 Balance 0 / 0 1160 / 1360 450 / 450 Lab / Micro Data 10/03/25 03:45 10/03/25 03:45 Labs: Laboratory Results - last 24 hr 10/02/25 23:00: Diff Path Review Reviewed 10/03/25 15:41: POC Glucose 135 H Micro: Microbiology 10/02/25 23:00 Blood Culture (Wb) - Right Hand Bacteria Detection (PCR) - Final Staphylococcus epidermidis 10/02/25 23:00 Blood Culture (Wb) - Right Hand Blood Culture - Preliminary 10/03/25 04:20 Nasal Secretion MRSA (PCR) - Final 10/03/25 03:16 Mucosa - Nasopharyngeal Respiratory Panel (PCR) - Final 10/03/25 01:39 Urine, Random Streptococcus pneumoniae Antigen (M - Final 10/03/25 01:39 Urine, Clean Catch Legionella Antigen - Final 10/03/25 00:05 Mucosa - Nose SARS-CoV-2, Influenza & RSV (PCR) - Final Radiography Diagnostic Testing: Radiology Impression Brain CT 10/03/25 15:50 IMPRESSION: 1. No acute intracranial abnormality. 2. Age-related senescent changes. Reading Location: [facility] Head/Neck CTA 10/03/25 15:57 IMPRESSION: 1. No arterial occlusion or dissection. 2. No significant stenosis within the head. No evidence of intracranial aneurysm. 3. Carotid bulb and ICA origin stenosis bilaterally (up to ~ 80% right; 70% left). 4. Left proximal subclavian artery stenosis (~70%) with focal left vertebral artery origin stenosis. Reading Location: [facility] Brain MRI 10/03/25 16:22 IMPRESSION: Multiple scattered small foci of likely embolic acute-subacute infarcts throughout the right cerebral hemisphere and in the left cerebellar hemisphere. Background of moderate-advanced chronic small-vessel ischemic changes with numerous old lacunar infarcts throughout the sanchez radiata white matter, bilateral basal ganglia, and bilateral cerebellar hemispheres. No acute hemorrhage or mass-effect. Reading Location: [facility] Physical Exam Neuro Neuro Narrative: Neurological?examination: General: The patient appears nutritionally appropriate, well-groomed, and appears comfortable in no acute distress. Mental Status: ?The patient?s mental status was normal including orientation. ?Language was intact. ?Cranial nerves: ?No visual complaints, and extra-ocular motion was intact. Face motion symmetric. Tongue was midline with normal movement. ?There was no dysarthria. Motor: Left arm weakness with pronator drift. Sensation: Decreased light touch in left arm, no extinction. ?Coordination: ?Bilateral finger to nose was normal. ?There was no dysmetria. Gait: ?deferred Subject: Neurology Subjective Patient feels better this AM, but still has left arm weakness. EEG Results Procedure Details EEG Procedure Details: Assessment and Plan: Stroke Assessment/Plan ZABRINA HSU is a 70 year old RH F with a history of CHF, COPD, CAD, HTN who was admitted with hypoxia. On 10/03/25 stroke code was called for left sided weakness. She was LKN 1530 and then PT worked with her and noted left arm weakness. Telestroke showed NIHSS 5. CT brain negative for acute changes. CTA head/neck 80% NIRMAL stenosis and 70% LICA stenosis. She is on Asa, Plavix, and lipitor 40. No LDL this admission, but prior 07/16/25 LDL 146. Of note In ER she was felt to be in Afib with RVR, but hospitalist reviewed rhythm and felt it was MAT. Neurological examination shows left arm weakness and sensory, NIHSS-2 (LUE-1, sens-1) ASSESSMENT/PLAN: Acute embolic infarcts 1) If Patient felt to have PAfib, then would recommend AC for stroke prevention. However, it appears PAfib diagnosis is not certain, and felt to be MAT. In that case, recommend dAPT x 21 days for now. 2) Recommend TTE. If negative, then Event monitor on discharge. 3) Continue daily anti-platelet medication (Asa/plavix x 21 days then stop plavix and contniue Asa only) 4) Continue vascular risk factor modification. On lipitor 40 (Recommend increasing lipitor if LDL > 100) 5) Recommend completing stroke bundle order sets (swallow eval, stroke education, LDL, Hgb1c, PT/OT consult, etc) 6) Event monitor on discharge and follow-up in outpatient neurology clinic. Will sign off, please call us back with further stroke related questions. Primary team messaged my recs on backline Lupe Gutierrez MD NIHSS NIHSS Nursing Documentation NIHSS Nursing Documentation: NIHSS: Ischemic Stroke/TIA Start: 10/03/25 16:37 Freq: [id number] Status: Active Protocol: Activity Type Activity Date Activity User E-sign Co-sign Detail Recorded Client Recorded Date Recorded By Document 10/04/25 07:30 [id number] 10/04/25 07:36 10/04/25 07:30 NIH Stroke Scale [NIHSS] A score of 0 is normal or asymptomatic . Total possible score is 42. Inpatient: RN or Physician to activate a stroke alert for onset of new stroke symptoms or with NIHSS increase >/= 3 points. Following change in neurological status, NIHSS will be performed per physician order or more frequently PRN. -1a. Level of Consciousness 0 - Alert; keenly responsive -1b. LOC Questions 0 - Answers BOTH questions correctly -1c. LOC Commands 1 - Performs ONE task correctly -2. Best Gaze 0 - Normal -3. Visual 0 - No visual loss -4. Facial Palsy 0 - Normal symmetrical movements -5a. Left Arm 1 - Drift; arm drifts downward but doesn?t hit the bed -5b. Right Arm 0 - No drift; arm holds 90 ( or 45) degrees for full 10 seconds -6a. Left Leg 0 - No drift; leg holds 30- degree position for full 5 seconds -6b. Right Leg 0 - No drift; leg holds 30- degree position for full 5 seconds -7. Limb Ataxia 1 - Present in 1 limb -8. Sensory 0 - Normal; no sensory loss -9. Best Language 0 - No aphasia; normal -10. Dysarthria 0 - Normal -11. Extinction and Inattention 0 - No abnormality -Total 3 Query Text:A score of 0 is normal or asymptomatic. Total possible score is 42 . ED: Notify Physician for NIHSS increase by > / = 3 points. Inpatient: RN or Physician to activate a stroke alert for NIHSS increase of > / = 3 points. NIHSS 1a. Level of Consciousness: 0 - Alert; keenly responsive 1b. LOC Questions: 0 - Answers BOTH questions correctly 1c. LOC Commands: 0 - Performs BOTH tasks correctly 2. Best Gaze: 0 - Normal 3. Visual: 0 - No visual loss 4. Facial Palsy: 0 - Normal symmetrical movements 5a. Left Arm: 1 - Drift; arm drifts downward but doesn?t hit the bed 5b. Right Arm: 0 - No drift; arm holds 90 (or 45) degrees for full 10 seconds 6a. Left Le - No drift; leg holds 30-degree position for full 5 seconds 6b. Right Le - No drift; leg holds 30-degree position for full 5 seconds 7. Limb Ataxia: 0 - Absent 8. Sensory: 1 - [id number] sensory loss; 9. Best Language: 0 - No aphasia; normal 10. Dysarthria: 0 - Normal 11. Extinction and Inattention: 0 - No abnormality Total: 2
--- NOTE | 2025-10-04 10:42 | STROKE.PNOTE ---
Objective Data Objective Data Vital Signs: Vital Signs Temp Pulse Resp BP Pulse Ox O2 Del Method O2 Flow Rate 97.8 F 83 18 95/47 L 100 Nasal Cannula 3 10/04/25 07:00 10/04/25 09:21 10/04/25 09:00 10/04/25 09:21 10/04/25 09:00 10/04/25 09:00 10/04/25 09:00 FiO2 30 10/04/25 04:02 Oxygen Flow Rate (L/min) 3 Oxygen Delivery Method Nasal Cannula Weight: 47.128 kg Body Mass Index (BMI) 17.8 Intake & Output: Intake and Output for Last 24 Hours 10/02/25 10/03/25 10/04/25 23:59 23:59 23:59 Intake Total 0 / 0 1460 / 1660 450 / 450 Output Total 300 / 300 Balance 0 / 0 1160 / 1360 450 / 450 Lab / Micro Data 10/03/25 03:45 10/03/25 03:45 Labs: Laboratory Results - last 24 hr 10/02/25 23:00: Diff Path Review Reviewed 10/03/25 15:41: POC Glucose 135 H Micro: Microbiology 10/02/25 23:00 Blood Culture (Wb) - Right Hand Bacteria Detection (PCR) - Final Staphylococcus epidermidis 10/02/25 23:00 Blood Culture (Wb) - Right Hand Blood Culture - Preliminary 10/03/25 04:20 Nasal Secretion MRSA (PCR) - Final 10/03/25 03:16 Mucosa - Nasopharyngeal Respiratory Panel (PCR) - Final 10/03/25 01:39 Urine, Random Streptococcus pneumoniae Antigen (M - Final 10/03/25 01:39 Urine, Clean Catch Legionella Antigen - Final 10/03/25 00:05 Mucosa - Nose SARS-CoV-2, Influenza & RSV (PCR) - Final Radiography Diagnostic Testing: Radiology Impression Brain CT 10/03/25 15:50 IMPRESSION: 1. No acute intracranial abnormality. 2. Age-related senescent changes. Reading Location: [facility] Head/Neck CTA 10/03/25 15:57 IMPRESSION: 1. No arterial occlusion or dissection. 2. No significant stenosis within the head. No evidence of intracranial aneurysm. 3. Carotid bulb and ICA origin stenosis bilaterally (up to ~ 80% right; 70% left). 4. Left proximal subclavian artery stenosis (~70%) with focal left vertebral artery origin stenosis. Reading Location: [id number] Brain MRI 10/03/25 16:22 IMPRESSION: Multiple scattered small foci of likely embolic acute-subacute infarcts throughout the right cerebral hemisphere and in the left cerebellar hemisphere. Background of moderate-advanced chronic small-vessel ischemic changes with numerous old lacunar infarcts throughout the sanchez radiata white matter, bilateral basal ganglia, and bilateral cerebellar hemispheres. No acute hemorrhage or mass-effect. Reading Location: [id number] Assessment and Plan: Stroke Assessment/Plan Addendum: Carotid stenosis appears to be incidental (would not explain the cerebellar infarct) and she can follow-up with vascular as an outpatient. NIHSS NIHSS Nursing Documentation NIHSS Nursing Documentation: NIHSS: Ischemic Stroke/TIA Start: 10/03/25 16:37 Freq: [id number] Status: Active Protocol: Activity Type Activity Date Activity User E-sign Co-sign Detail Recorded Client Recorded Date Recorded By Document 10/04/25 07:30 YANETH [id number] 10/04/25 07:36 YANETH 10/04/25 07:30 NIH Stroke Scale [NIHSS] A score of 0 is normal or asymptomatic . Total possible score is 42. Inpatient: RN or Physician to activate a stroke alert for onset of new stroke symptoms or with NIHSS increase >/= 3 points. Following change in neurological status, NIHSS will be performed per physician order or more frequently PRN. -1a. Level of Consciousness 0 - Alert; keenly responsive -1b. LOC Questions 0 - Answers BOTH questions correctly -1c. LOC Commands 1 - Performs ONE task correctly -2. Best Gaze 0 - Normal -3. Visual 0 - No visual loss -4. Facial Palsy 0 - Normal symmetrical movements -5a. Left Arm 1 - Drift; arm drifts downward but doesn?t hit the bed -5b. Right Arm 0 - No drift; arm holds 90 ( or 45) degrees for full 10 seconds -6a. Left Leg 0 - No drift; leg holds 30- degree position for full 5 seconds -6b. Right Leg 0 - No drift; leg holds 30- degree position for full 5 seconds -7. Limb Ataxia 1 - Present in 1 limb -8. Sensory 0 - Normal; no sensory loss -9. Best Language 0 - No aphasia; normal -10. Dysarthria 0 - Normal -11. Extinction and Inattention 0 - No abnormality -Total 3 Query Text:A score of 0 is normal or asymptomatic. Total possible score is 42 . ED: Notify Physician for NIHSS increase by > / = 3 points. Inpatient: RN or Physician to activate a stroke alert for NIHSS increase of > / = 3 points.
--- NOTE | 2025-10-04 11:13 | CASEMGMT ---
Social Work PHQ-9 completed w/pt as pt was positive for a stroke. Pt scored a 4, attributing most symptoms to her recent health issues. Pt declined any referrals for MH at this time. MALIK Alvarado
--- NOTE | 2025-10-04 18:06 | PN.HOSP_ITS ---
Reason for Visit Chief Complaint: Dyspnea, wheezing, respiratory distress. Subjective Subjective Patient was seen and examined today, she was alert and appropriate, explained that she will probably need physical therapy as an outpatient, she still has weakness in the left arm. Objective Data Objective Data Vital Signs: Vital Signs Temp Pulse Resp BP Pulse Ox O2 Del Method O2 Flow Rate 98.1 F 85 16 105/66 96 Nasal Cannula 3 10/04/25 15:00 10/04/25 15:00 10/04/25 15:00 10/04/25 15:00 10/04/25 15:00 10/04/25 15:00 10/04/25 15:00 FiO2 30 10/04/25 04:02 Oxygen Flow Rate (L/min) 3 Oxygen Delivery Method Nasal Cannula Weight: 47.128 kg Body Mass Index (BMI) 17.8 Intake & Output: Intake and Output for Last 24 Hours 10/02/25 10/03/25 10/04/25 23:59 23:59 23:59 Intake Total 0 / 0 1460 / 1660 450 / 450 Output Total 300 / 300 Balance 0 / 0 1160 / 1360 450 / 450 Lab / Micro Data 10/03/25 03:45 10/03/25 03:45 Micro: Microbiology 10/02/25 23:00 Blood Culture (Wb) - Right Hand Bacteria Detection (PCR) - Final Staphylococcus epidermidis 10/02/25 23:00 Blood Culture (Wb) - Right Hand Blood Culture - Preliminary 10/03/25 04:20 Nasal Secretion MRSA (PCR) - Final 10/03/25 03:16 Mucosa - Nasopharyngeal Respiratory Panel (PCR) - Final 10/03/25 01:39 Urine, Random Streptococcus pneumoniae Antigen (M - Final 10/03/25 01:39 Urine, Clean Catch Legionella Antigen - Final 10/03/25 00:05 Mucosa - Nose SARS-CoV-2, Influenza & RSV (PCR) - Final Radiography Diagnostic Testing: Radiology Impression Brain MRI 10/03/25 16:22 IMPRESSION: Multiple scattered small foci of likely embolic acute-subacute infarcts throughout the right cerebral hemisphere and in the left cerebellar hemisphere. Background of moderate-advanced chronic small-vessel ischemic changes with numerous old lacunar infarcts throughout the sanchez radiata white matter, bilateral basal ganglia, and bilateral cerebellar hemispheres. No acute hemorrhage or mass-effect. Reading Location: [facility] Echocardiogram 10/03/25 16:22 Interpretation Summary The estimated ejection fraction is 65 %. Unable to assess diastolic dysfunction. Trivial mitral valve insufficiency. Ordering Physician: Stoney Michael Referring Physician: Melissa Ozuna Performed By: Leticia López, SHARLA, RVT Physical Exam Const alert, oriented x3 and no apparent distress Constitutional Narrative: Patient looks older than her stated age General Appearance: cooperative and well developed Orientation / Consciousness: awake, oriented to person, oriented to place and oriented to time HEENT normocephalic, head/scalp atraumatic and moist oral mucous membranes Eyes PERRL, EOMs intact bilaterally and conjunctivae normal Neck supple, no JVD, thyroid normal and no carotid bruits General: trachea midline Resp normal respiratory effort, no retractions, no use of accessory muscles and clear to auscultation bilaterally Auscultation: Negative for rales, rhonchi or wheezes Cardio regular rate, regular rhythm, S1 normal heart sound, S2 normal heart sound, no murmurs, no rub and no gallops GI normal to inspection, nondistended, normoactive bowel sounds, soft to palpation, non-tender and non-distended Extremity no clubbing, cyanosis or edema Skin no rashes or lesions noted General Skin Exam: no breakdown Neuro oriented x3, CN's II-XII intact bilaterally, moves all extremities, no focal motor deficits and no sensory deficits noted Sensorium / Orientation: awake and alert Speech: speech normal Psych affect normal Assessment & Plan Assessment/Plan (1) COPD exacerbation: PLAN: Plan 1. Exacerbation of COPD-patient will remain on her present medications, pulse ox will be monitored, I will stop her Rocephin #2 subacute ischemic infarcts-was probably from an embolic source-due to the fact the patient is on dual antiplatelet therapy presently it was recommended that the patient not go on full anticoagulation at this time. #3 acute on chronic combined respiratory failure-patient states she is on 4 L of oxygen at home #4 essential hypertension-patient will remain on her present medications #5 hyperlipidemia-patient is on atorvastatin Total clinical time spent by myself addressing patient's medical issues, reviewing all of her data, and collaborating with patient's care team: 35 minutes Charges/Coding Visit Charges Inpatient E&M: 13904 Subs Hosp L2 NIHSS NIHSS Nursing Documentation NIHSS Nursing Documentation: NIHSS: Ischemic Stroke/TIA Start: 10/03/25 16:37 Freq: [id number] Status: Active Protocol: Activity Type Activity Date Activity User E-sign Co-sign Detail Recorded Client Recorded Date Recorded By Document 10/04/25 15:00 YANETH [id number] 10/04/25 15:34 YANETH 10/04/25 15:00 NIH Stroke Scale [NIHSS] A score of 0 is normal or asymptomatic . Total possible score is 42. Inpatient: RN or Physician to activate a stroke alert for onset of new stroke symptoms or with NIHSS increase >/= 3 points. Following change in neurological status, NIHSS will be performed per physician order or more frequently PRN. -1a. Level of Consciousness 0 - Alert; keenly responsive -1b. LOC Questions 0 - Answers BOTH questions correctly -1c. LOC Commands 0 - Performs BOTH tasks correctly -2. Best Gaze 0 - Normal -3. Visual 0 - No visual loss -4. Facial Palsy 0 - Normal symmetrical movements -5a. Left Arm 1 - Drift; arm drifts downward but doesn?t hit the bed -5b. Right Arm 0 - No drift; arm holds 90 ( or 45) degrees for full 10 seconds -6a. Left Leg 0 - No drift; leg holds 30- degree position for full 5 seconds -6b. Right Leg 0 - No drift; leg holds 30- degree position for full 5 seconds -7. Limb Ataxia 1 - Present in 1 limb -8. Sensory 0 - Normal; no sensory loss -9. Best Language 0 - No aphasia; normal -10. Dysarthria 0 - Normal -11. Extinction and Inattention 0 - No abnormality -Total 2 Query Text:A score of 0 is normal or asymptomatic. Total possible score is 42 . ED: Notify Physician for NIHSS increase by > / = 3 points. Inpatient: RN or Physician to activate a stroke alert for NIHSS increase of > / = 3 points. Coma Scale [Assess] -Eye Opening Spontaneous -Motor Obeys Commands -Verbal Oriented [Total] -Coma Scale Total 15
--- NOTE | 2025-10-04 18:25 | PCM.PN.TICU ---
Objective Data Objective Data Vital Signs: Vital Signs Last response Temperature 36.7 C 10/04/25 15:00 Temperature Source Temporal 10/04/25 15:00 Pulse Rate 85 10/04/25 15:00 Pulse Strength Normal (2+) 10/04/25 10:00 Respiratory Rate 16 10/04/25 15:00 Respiratory Effort Normal, Non-Labored 10/04/25 07:30 Respiratory Depth Normal 10/04/25 07:30 Respiratory Pattern Tachypnea 10/04/25 14:43 Blood Pressure 105/66 10/04/25 15:00 Blood Pressure Mean 79 10/04/25 15:00 Blood Pressure Source Monitor 10/04/25 15:00 Blood Pressure Position Sitting 10/04/25 15:00 Blood Pressure Location Left Arm 10/04/25 15:00 Pulse Ox 96 10/04/25 15:00 Oxygen Delivery Method Nasal Cannula 10/04/25 15:00 Oxygen Flow Rate (L/min) 3 10/04/25 15:00 Fraction of Inspired Oxygen (FIO2) 30 10/04/25 04:02 I&O: I&O Last 24 Hours 10/03/25 10/04/25 10/04/25 23:59 11:59 23:59 Intake Total 920 / 1660 450 / 450 Balance 920 / 1360 450 / 450 I&O: Total Stay 10/02/25 22:50 thru 10/04/25 05:20 Intake Total 1910 Output Total 300 Balance 1610 Current Meds Ordered / Administered: Current meds ordered / Administered Generic Name Dose Route Start Last Admin Trade Name Freq PRN Reason Stop Dose Admin Acetaminophen 650 mg 10/03/25 03:10 10/03/25 23:08 Acetaminophen 325 Mg Tablet PO 650 mg Q4H PRN PRN Administration Fever, pain 1-08/01 Al Hydroxide/Mg Hydroxide 30 ml 10/03/25 03:10 Mag Hydrox/Al Hydrox/Simeth 30 Ml Udc PO Q6H PRN PRN Gastric Burning Albuterol Sulfate 2.5 mg 10/03/25 03:10 Albuterol 2.5 Mg/3 Ml Vial.Neb. INHALATION Q2H PRN PRN Dyspnea, wheezing Albuterol/Ipratropium 3 ml 10/03/25 03:10 10/04/25 14:41 Ipratropium/Albuterol Sulfate 3 Ml Ampul.Neb INHALATION 3 ml Q4HWA.RT TIMOTHY Administration Amlodipine Besylate 10 mg 10/03/25 10:00 10/04/25 09:21 Amlodipine 10 Mg Tablet PO Not Given DAILY TIMOTHY Protocol Aspirin 81 mg 10/03/25 08:00 10/04/25 09:28 Aspirin E.C. 81 Mg Tablet PO 81 mg BREAKFAST TIMOTHY Administration Atorvastatin Calcium 80 mg 10/03/25 22:00 10/03/25 21:32 Atorvastatin Calcium 80 Mg Tablet PO 80 mg QHS TIMOTHY Administration Brimonidine Tartrate 1 drp 10/03/25 06:00 10/04/25 15:21 Brimonidine 0.2% 5ml Bottle OPHTHALMIC 1 drp TID TIMOTHY Administration Clopidogrel Bisulfate 75 mg 10/03/25 10:00 10/04/25 09:28 Clopidogrel Bisulfate 75 Mg Tablet PO 75 mg DAILY TIMOTHY Administration Dorzolamide HCl 1 drp 10/03/25 06:00 10/04/25 15:21 Dorzolamide 2% 10ml Bottle OPHTHALMIC 1 drp TID TIMOTHY Administration Enoxaparin Sodium 40 mg 10/03/25 10:00 10/04/25 09:28 Enoxaparin 40 Mg/0.4 Ml Syringe SC 40 mg DAILY TIMOTHY Administration Furosemide 40 mg 10/03/25 10:00 10/04/25 09:21 Furosemide 40 Mg Tablet PO Not Given DAILY TIMOTHY Protocol Guaifenesin 1,200 mg 10/03/25 10:00 10/04/25 09:28 Guaifenesin 1,200 Mg Tablet PO 1,200 mg BID TIMOTHY Administration Hydralazine HCl 10 mg 10/03/25 03:10 10/03/25 04:09 Hydralazine 20 Mg/Ml Vial IV 10 mg Q4H PRN PRN Administration SBP > 160 Protocol Ceftriaxone Sodium 1 gm in 50 mls @ 100 mls/hr 10/03/25 22:00 10/03/25 22:10 Rocephin IV Infused Q24H TIMOTHY Infusion Azithromycin 500 mg/ Sodium 250 mls @ 250 mls/hr 10/03/25 03:10 10/04/25 00:16 Chloride IV Infused QHS TIMOTHY Infusion Sodium Chloride 250 mls @ 15 mls/hr 10/03/25 03:14 10/03/25 19:31 IV Infused .[id number] PRN Infusion Saline Flush Sodium Chloride 250 mls @ 15 mls/hr 10/03/25 03:14 IV .[id number] PRN Additional IVPB Infusion Lisinopril 20 mg 10/03/25 10:00 10/04/25 09:21 Lisinopril 20 Mg Tablet PO Not Given DAILY [facility] Protocol Melatonin 10 mg 10/03/25 03:10 Melatonin 10 Mg Tablet PO QHS PRN PRN INSOMNIA Methylprednisolone Sodium Succinate 40 mg 10/03/25 06:00 10/04/25 15:21 Methylprednisolone Sod Succ 40 Mg/Ml Vial IV 40 mg Q8 TIMOTHY Administration Metoprolol Tartrate 50 mg 10/03/25 10:00 10/04/25 09:21 Metoprolol Tartrate 50 Mg Tablet PO Not Given BID [facility] Protocol Nutritional Formula (Lactose Free) 120 ml 10/03/25 14:00 10/04/25 15:22 Ensure Plus High Protein 120 Ml Liquid PO Not Given 4X/DAY [facility] Ondansetron HCl 4 mg 10/03/25 03:10 Ondansetron 4 Mg/2 Ml Vial IV Q8H PRN PRN NAUSEA/VOMITING Senna/Docusate Sodium 2 tablet 10/03/25 03:10 Senna/Docusate Sodium 1 Tablet PO BID PRN PRN Constipation Sodium Chloride 10 - 40 ml 10/03/25 03:14 10/04/25 04:42 0.9% Saline Lock 10 Ml Syringe IV 20 ml UD PRN Administration SALINE FLUSH Tolterodine Tartrate 2 mg 10/03/25 10:00 10/04/25 09:28 Tolterodine Tartrate 2 Mg Cap.Sa PO 2 mg DAILY TIMOTHY Administration Lab / Micro Data 10/03/25 03:45 10/03/25 03:45 Micro: Microbiology 10/02/25 23:00 Blood Culture (Wb) - Right Hand Bacteria Detection (PCR) - Final Staphylococcus epidermidis 10/02/25 23:00 Blood Culture (Wb) - Right Hand Blood Culture - Preliminary Imaging Radiology Impression Brain MRI 10/03/25 16:22 IMPRESSION: Multiple scattered small foci of likely embolic acute-subacute infarcts throughout the right cerebral hemisphere and in the left cerebellar hemisphere. Background of moderate-advanced chronic small-vessel ischemic changes with numerous old lacunar infarcts throughout the sanchez radiata white matter, bilateral basal ganglia, and bilateral cerebellar hemispheres. No acute hemorrhage or mass-effect. Reading Location: [id number] Echocardiogram 10/03/25 16:22 Interpretation Summary The estimated ejection fraction is 65 %. Unable to assess diastolic dysfunction. Trivial mitral valve insufficiency. Ordering Physician: Stoney Michael Referring Physician: Melissa Ozuna Performed By: Leticia López, SHARLA, RVT Assessment and Plan . Assessment and plan: Chart and data reviewed Overall stable Neurology and MRI noted No new thoughts or recommendations at this time
[2025-10-04] MEDS: Azithromycin 500 MG in 0.9% Normal Saline (250mL Bag) 250 ML 250 MG IV (22:33)
[2025-10-05] VITALS (10 sets, daily range): BP systolic 122–136; BP diastolic 61–76; PULSE 63–78; RESP 14–18; TEMP 36.3–36.7; O2SAT 93–98; BMI 17.8; BMI 19.2
[2025-10-05] MEDS: BRIMONIDINE 0.2% 5ML BOTTLE 1 DRP OPHTHALMIC ×3 (06:54→21:06)
[2025-10-05] MEDS: Dorzolamide 2% 10ml Bottle 1 DRP OPHTHALMIC ×3 (06:54→21:06)
[2025-10-05] MEDS: Aspirin E.C. 81 MG Tablet PO (08:53)
[2025-10-05] MEDS: Ensure Plus High Protein 120 ML LIQUID PO ×3 (08:54→21:29)
--- NOTE | 2025-10-05 14:21 | PN.HOSP_ITS ---
Reason for Visit Chief Complaint: Dyspnea, wheezing, respiratory distress. Subjective Subjective Patient was seen and examined today, she was weaned off oxygen and appears comfortable. She still has left arm weakness. Objective Data Objective Data Vital Signs: Vital Signs Temp Pulse Resp BP Pulse Ox O2 Del Method O2 Flow Rate 97.5 F L 75 18 136/64 H 98 Room Air 3 10/05/25 08:51 10/05/25 11:22 10/05/25 11:22 10/05/25 08:51 10/05/25 11:22 10/05/25 11:22 10/04/25 21:10 FiO2 30 10/04/25 04:02 Oxygen Flow Rate (L/min) 3 Oxygen Delivery Method Room Air Weight: 50.9 kg Body Mass Index (BMI) 19.2 Intake & Output: Intake and Output for Last 24 Hours 10/03/25 10/04/25 10/05/25 23:59 23:59 23:59 Intake Total 1460 / 1660 970 / 970 250 / 250 Output Total 300 / 300 Balance 1160 / 1360 970 / 970 250 / 250 Lab / Micro Data 10/03/25 03:45 10/03/25 03:45 Micro: Microbiology 10/02/25 23:00 Blood Culture (Wb) - Right Hand Bacteria Detection (PCR) - Final Staphylococcus epidermidis 10/02/25 23:00 Blood Culture (Wb) - Right Hand Blood Culture - Preliminary Coag Negative Staph 10/02/25 23:09 Blood Culture (Wb) - Venous Blood Culture - Preliminary No growth in 48 hours. 10/03/25 04:20 Nasal Secretion MRSA (PCR) - Final 10/03/25 03:16 Mucosa - Nasopharyngeal Respiratory Panel (PCR) - Final 10/03/25 01:39 Urine, Random Streptococcus pneumoniae Antigen (M - Final 10/03/25 01:39 Urine, Clean Catch Legionella Antigen - Final 10/03/25 00:05 Mucosa - Nose SARS-CoV-2, Influenza & RSV (PCR) - Final Physical Exam Const alert, oriented x3 and average body habitus HEENT head/scalp atraumatic and moist oral mucous membranes Head and Scalp: normocephalic Eyes PERRL, EOMs intact bilaterally and conjunctivae normal Neck supple and no JVD Resp normal respiratory effort, no retractions, no use of accessory muscles and clear to auscultation bilaterally Cardio regular rate, regular rhythm, S1 normal heart sound, S2 normal heart sound and no murmurs GI normal to inspection, nondistended, normoactive bowel sounds, soft to palpation, non-tender and non-distended Extremity no clubbing, cyanosis or edema Skin no rashes or lesions noted, no wounds and skin turgor normal Neuro oriented x3 and CN's II-XII intact bilaterally Neuro Narrative: There is focal weakness of the left arm as opposed to the right arm, decreased psychological operations specialist strength in the left arm is noted also Sensorium / Orientation: awake and alert Speech: speech normal Psych affect normal Assessment & Plan Assessment/Plan (1) COPD exacerbation: PLAN: Plan 1. Exacerbation of COPD-patient will remain on her present medications, pulse ox will be monitored #2 subacute ischemic infarcts-was probably from an embolic source-due to the fact the patient is on dual antiplatelet therapy presently it was recommended that the patient not go on full anticoagulation at this time. Patient will need a 30-day Holter monitor at the time of the charge #3 acute on chronic combined respiratory failure-patient was weaned to room air today, she does have oxygen at home which she uses at 4 L. She will need an ambulatory oxygen qualification test at the time of discharge from the hospital #4 essential hypertension-patient will remain on her present medications #5 hyperlipidemia-patient is on atorvastatin #6 left upper hemiparesis-patient will need outpatient PT and OT. Total clinical time spent by myself addressing patient's medical issues, reviewing all of her data, and collaborating with patient's care team: 35 minutes Charges/Coding Visit Charges Inpatient E&M: 33774 Subs Hosp L2 NIHSS NIHSS Nursing Documentation NIHSS Nursing Documentation: NIHSS: Ischemic Stroke/TIA Start: 10/03/25 16:37 Freq: [id number] Status: Complete Protocol: Activity Type Activity Date Activity User E-sign Co-sign Detail Recorded Client Recorded Date Recorded By Document 10/04/25 15:00 YANETH [id number] 10/04/25 15:34 YANETH 10/04/25 15:00 NIH Stroke Scale [NIHSS] A score of 0 is normal or asymptomatic . Total possible score is 42. Inpatient: RN or Physician to activate a stroke alert for onset of new stroke symptoms or with NIHSS increase >/= 3 points. Following change in neurological status, NIHSS will be performed per physician order or more frequently PRN. -1a. Level of Consciousness 0 - Alert; keenly responsive -1b. LOC Questions 0 - Answers BOTH questions correctly -1c. LOC Commands 0 - Performs BOTH tasks correctly -2. Best Gaze 0 - Normal -3. Visual 0 - No visual loss -4. Facial Palsy 0 - Normal symmetrical movements -5a. Left Arm 1 - Drift; arm drifts downward but doesn?t hit the bed -5b. Right Arm 0 - No drift; arm holds 90 ( or 45) degrees for full 10 seconds -6a. Left Leg 0 - No drift; leg holds 30- degree position for full 5 seconds -6b. Right Leg 0 - No drift; leg holds 30- degree position for full 5 seconds -7. Limb Ataxia 1 - Present in 1 limb -8. Sensory 0 - Normal; no sensory loss -9. Best Language 0 - No aphasia; normal -10. Dysarthria 0 - Normal -11. Extinction and Inattention 0 - No abnormality -Total 2 Query Text:A score of 0 is normal or asymptomatic. Total possible score is 42 . ED: Notify Physician for NIHSS increase by > / = 3 points. Inpatient: RN or Physician to activate a stroke alert for NIHSS increase of > / = 3 points. Coma Scale [Assess] -Eye Opening Spontaneous -Motor Obeys Commands -Verbal Oriented [Total] -Coma Scale Total 15
[2025-10-05] MEDS: Azithromycin 500 MG in 0.9% Normal Saline (250mL Bag) 250 ML 250 MG IV (21:06)
[2025-10-06 03:04] VITALS: BMI 19.5
[2025-10-06 03:20] VITALS: BP 146/73; PULSE 65; RESP 14; TEMP 36.2; O2SAT 95
[2025-10-06 05:00] VITALS: BMI 19.5
[2025-10-06] MEDS: Dorzolamide 2% 10ml Bottle 1 DRP OPHTHALMIC (06:01)
[2025-10-06] MEDS: BRIMONIDINE 0.2% 5ML BOTTLE 1 DRP OPHTHALMIC (06:02)
[2025-10-06 07:09] VITALS: PULSE 63; RESP 16; O2SAT 98
[2025-10-06] MEDS: Aspirin E.C. 81 MG Tablet PO (08:50)
[2025-10-06 08:51] VITALS: PULSE 69
[2025-10-06] MEDS: Ensure Plus High Protein 120 ML LIQUID PO (08:57)
[2025-10-06 09:00] VITALS: BP 153/88; PULSE 72; RESP 17; TEMP 36.7; O2SAT 97
[2025-10-06 11:26] VITALS: O2SAT 97; O2SAT 99
--- NOTE | 2025-10-06 11:36 | PCM.DC ---
Discharge Instructions DC O2, CPAP, BIPAP needs Home O2 Discharge instructions: Yes Type of respiratory needs?: Oxygen Oxygen frequency: Other Other oxygen liters per minute: Wear oxygen as previously ordered Other oxygen frequency: Wear oxygen as previously ordered Dressing / Incision Discharge Activity: - (Increase activity as tolerated) Follow Up Care Test Results: Test results from this visit will be discussed in further detail at your follow-up appointment, if applicable. Discharge Plan Admission Admit Date/Time: 10/03/25 01:16 Primary Reason for Your Visit: Shortness of breath Attending Provider: Yanet Lopes Primary Care Provider: Melissa Ozuna NP Consulting Providers: Gloria Wolf; Marcos Alfredo; Mark Garrido; Nathan Bill; Eleazar Valle; Clarence Vo; Payton Aaron; Reid Murillo; Hallie Ramos; Harpreet Gray; Cathie Cantu; Dmitri James; Ricardo Garcia; Isadora Jalloh; Venkatesh Cleveland; Farhat Hunter; Kennedy Becerra; Analisa Bundy; Laura Rodas; Ruth Altamirano; Angie Leon; Jose L Ryan; Stoney Ojeda; Neli Love; Deepa Blanco; Gama Rodriguez; Mary Mayen; Neli Moore; Viktor Morejon; Taran Garcia; Rufus Barker; Jhony Smith; Alonso Mcknight; Emmett Brown; Tess Dietrich; Coleen Tejada; Margo Vásquez; Darshana Ricks; Ramon Mckeon; Bart Maurer; Davon Mcguire; Catia Mercer; Mau Hoover; Stoney Michael Instructions Patient Instructions: COPD Controlled Breathing Dc, Chronic Lung Disease Avoid These Additional Instructions / Restrictions: DISCHARGE INSTRUCTIONS PLEASE READ *Please take this with you to your next doctors appointment* - You will be discharged on additional 5 days of prednisone, this has been sent to [facility] pharmacy -Please follow-up with neurology upon discharge, please call Dr. Benson's office upon discharge to schedule an appointment for stroke ( [phone]) -Due to some narrowing of the vessels in your neck it is recommended that you follow-up with a vascular doctor on discharge on a nonemergent basis. Please call Dr. Solis's office to make an appointment to establish care. - You have been scheduled an appointment with Adriana Olsen NP in the pulmonology office 10/31/2024 at 11:15 AM to follow-up for your lungs -You will be discharged with instructions for a 30-day heart monitor to evaluate for any underlying abnormal heart rhythms -Please call your primary care provider's office upon discharge to schedule a hospital follow up within 1 week. -For any concerning signs or symptoms please call 911 or proceed to the nearest emergency department Discharge Orders/Prescriptions Prescriptions: New prednisone 20 mg tablet 40 mg PO DAILY 5 Days Qty: 10 0RF Continued nitroglycerin 0.4 mg tablet, sublingual 0.4 mg SUBLINGUAL Q5-15M PRN (Reason: chest pain) aspirin [Adult Low Dose Aspirin] 81 mg tablet,delayed release (DR/EC) 81 mg PO DAILY atorvastatin 40 mg tablet 40 mg PO QHS oxybutynin chloride 10 mg tablet extended release 24hr 10 mg PO DAILY albuterol sulfate [Ventolin HFA] 90 mcg/actuation HFA aerosol inhaler 2 puff INHALATION Q4H PRN (Reason: shortness of breath or wheezing) Qty: 8.5 6RF brimonidine 0.2 % drops 1 drp ophthalmic (eye) DAILY dorzolamide 2 % drops 1 drp ophthalmic (eye) TID lisinopril 20 mg tablet 20 mg PO DAILY Qty: 90 3RF furosemide 40 mg tablet 40 mg PO DAILY clopidogrel 75 mg tablet 75 mg PO DAILY OXYGEN - Supplemental ([facility] INFORMATIONAL USE ONLY) Patient Comments: pt states she uses 3L @ home and gets it through [facility] amlodipine 10 mg Tablet 10 mg PO DAILY Qty: 30 2RF metoprolol tartrate 50 mg Tablet 50 mg PO BID Qty: 60 2RF potassium chloride 20 mEq tablet,ER particles/crystals 20 meq PO BID Discontinued prednisone 20 mg Tablet 40 mg PO BREAKFAST Qty: 2 0RF Other Ambulatory Orders: 30 Day Event Recorder Preventi (Urgent) Timeframe: 1 Day Facility: [facility] - Location: Cardiovascular Services Ordered By: Dr. Yanet Lopes Referrals / Follow Up: Gerard Solis MD [Med Staff - Active Staff, Vascular Surgery] Referral Note: Due to some narrowing of the vessels in your neck it is recommended that you follow-up with a vascular doctor on discharge on a nonemergent basis. Please call Dr. Solis's office to make an appointment to establish care Car Benson MD [Non-Staff -Ordering Privileges, Neurology] Referral Note: -Please follow-up with neurology upon discharge, please call Dr. Benson's office upon discharge to schedule an appointment for stroke (ph [phone]) Melissa Ozuna NP, FIELD TRAFFIC INVESTIGATOR-C [Primary Care Provider, Family Practice] Adriana Wiggins FIELD TRAFFIC INVESTIGATOR-C [Med Staff - Adv Practice Prof, Pulmonology] - 10/31/25 11:15 am Disposition Disposition (needs filled in before D/C Order can be placed): Home Health Service
--- NOTE | 2025-10-06 11:39 | DS.PCM_ITS ---
Providers Date of Admission: 10/03/25 Date of Discharge: 10/06/25 Primary Care Physician: SEUN Alvarez Consultations 10/03/25 03:10 Consult: Fishing Captain / Pulmonary Medicine Routine Consulting Provider: Intensivists/Pulmonary Med Reason for Consult: Resp Failure, COPD Exac, ? PNA EMERGENT Consult: No MD Notified: Yes Date Notified: 10/03/25 Time Notified: 01:19 Method of Notification: Text Reason For Visit: ACUTE HYPOXIC/HYPERCARBIC RESP FAILURE Diagnosis Discharge Diagnosis (1) COPD exacerbation: Status: Chronic Code(s): J44.1 - Chronic obstructive pulmonary disease with (acute) exacerbation (2) CVA (cerebral vascular accident): Status: Acute Code(s): I63.9 - Cerebral infarction, unspecified Plan # Acute on chronic combined respiratory failure secondary to COPD exacerbation # Subacute ischemic infarcts # History of hypertension # History of coronary artery disease with stent Medications at Discharge Home Medications aspirin 81 mg tablet,delayed release (Adult Low Dose Aspirin) 81 mg PO DAILY heart 07/08/19 atorvastatin 40 mg tablet 40 mg PO QHS cholestrol 07/08/19 nitroglycerin 0.4 mg sublingual tablet 0.4 mg sublingual Q5-15M PRN chest pain 07/08/19 oxybutynin chloride 10 mg tablet,extended release 24 hr 10 mg PO DAILY overactive bladd 07/08/19 albuterol sulfate 90 mcg/actuation aerosol inhaler (Ventolin HFA) 2 puff inhalation Q4H PRN shortness of breath or wheezing #8.5 grams 12/23/20 brimonidine 0.2 % eye drops 1 drp ophthalmic (eye) DAILY eyes 06/16/21 dorzolamide 2 % eye drops 1 drp ophthalmic (eye) TID eyes 06/16/21 lisinopril 20 mg tablet 20 mg PO DAILY #90 tabs 06/16/21 clopidogrel 75 mg tablet 75 mg PO DAILY heart 07/17/25 furosemide 40 mg tablet 40 mg PO DAILY heart 07/17/25 OXYGEN - Supplemental ([facility] INFORMATIONAL USE ONLY) COPD 07/18/25 amlodipine 10 mg tablet 10 mg PO DAILY #30 tabs 07/26/25 metoprolol tartrate 50 mg tablet 50 mg PO BID #60 tabs 07/26/25 potassium chloride 20 mEq tablet,extended release(part/cryst) 20 meq PO BID 10/03/25 prednisone 20 mg tablet 40 mg (2 x 20 mg) PO DAILY 5 days #10 tabs 10/06/25 Hospital Course Summary of Care Provided Minutes Spent on Discharge: 36 Hospital Course: 70 y/o F w/ PMHx: COPD with chronic hypoxic respiratory failure 4 L NC, Anxiety and Depression, Pulmonary HTN, CAD s/p PCI, Valvular Heart Disease, HFpEF, Tobacco use who presents to the [facility] ED on 10/03/25 with history significant onset respiratory distress starting at home normally wearing 4 L nasal cannula starting in the morning on day prior however progressively worsening prompting eventual ED evaluation. She was 87% on 4 L nasal cannula with increased work of breathing and wheezing and was transition to BiPAP, she was given nebs and Solu- Medrol and hospitalist contacted for admission. Patient was treated for COPD exacerbation and improved significantly with steroids and DuoNebs. During hospitalization patient did develop left upper extremity weakness and had imaging that showed scattered small to moderate subacute infarcts and was felt patient to be high risk for thrombolytics so this was not pursued. Left extremity movement did improve throughout hospitalization breathing continue to improve. Echocardiogram unremarkable, patient monitored on telemetry and appeared to have sinus arrhythmia but did not appear to have A-fib at this time, previously it had been queried if she had A-fib but ultimately was diagnosed as MAT and full dose anticoagulation not indicated. Neurology recommended event monitor at discharge and outpatient follow-up. On day of discharge breathing significantly improved, left upper extremity movement improving and patient comfortable going home with home health. No new or acute complaints on day of discharge. Discharge instructions as follows: - You will be discharged on additional 5 days of prednisone, this has been sent to [facility] pharmacy -Please follow-up with neurology upon discharge, please call Dr. Benson's office upon discharge to schedule an appointment for stroke (ph [phone]) -Due to some narrowing of the vessels in your neck it is recommended that you follow-up with a vascular doctor on discharge on a nonemergent basis. Please call Dr. Solis's office to make an appointment to establish care. - You have been scheduled an appointment with Adriana Olsen NP in the pulmonology office 10/31/2024 at 11:15 AM to follow-up for your lungs -You will be discharged with instructions for a 30-day heart monitor to evaluate for any underlying abnormal heart rhythms -Please call your primary care provider's office upon discharge to schedule a hospital follow up within 1 week. -For any concerning signs or symptoms please call 911 or proceed to the nearest emergency department Physical Exam Narrative General: Alert, oriented, no apparent distress HEENT: Atraumatic, normocephalic Eyes: Anicteric, normal conjunctiva, extraocular movements intact, pupils equal Neck: Supple Respiratory: Clear to auscultation bilaterally, normal respiratory effort Cardiovascular: Regular rate and rhythm GI: Soft, nontender, nondistended Extremities: No edema Musculoskeletal: Strength 5 out of 5 in right upper extremity, 5 - out of 5 left upper extremity, mostly has difficulty with institutional aide and moving fingers, 5 out of 5 right lower extremity, 5 out of 5 left lower extremity Neuro:cranial nerves II through XII intact, difficulty with finger-nose on left hand due to difficulty moving arm and fingers but was able to do it very slowly Skin: No rashes appreciated Psych: Cooperative Weight / BMI Weight Weight: 51.8 kg Body Mass Index (BMI) 19.5 ABG / Lab / Microbiology Data 10/03/25 03:45 10/03/25 03:45 Microbiology: Microbiology 10/02/25 23:00 Blood Culture (Wb) - Right Hand Bacteria Detection (PCR) - Final Staphylococcus epidermidis 10/02/25 23:00 Blood Culture (Wb) - Right Hand Blood Culture - Preliminary Coag Negative Staph 10/02/25 23:09 Blood Culture (Wb) - Venous Blood Culture - Preliminary No growth in 48 hours. 10/03/25 04:20 Nasal Secretion MRSA (PCR) - Final 10/03/25 03:16 Mucosa - Nasopharyngeal Respiratory Panel (PCR) - Final 10/03/25 01:39 Urine, Random Streptococcus pneumoniae Antigen (M - Final 10/03/25 01:39 Urine, Clean Catch Legionella Antigen - Final 10/03/25 00:05 Mucosa - Nose SARS-CoV-2, Influenza & RSV (PCR) - Final D/C Instructions DC O2, CPAP, BIPAP Needs Home O2 Discharge instructions: Yes Type of respiratory needs?: Oxygen Oxygen frequency: Continuous Continuous oxygen liters per minute: 2 DC home with Oxygen: Yes Home O2 MD Review: I have reviewed the oxygen testing, and the patient qualifies for home oxygen equipment and portability. The patient is mobile in the home and the community. Meaningful Use Info Meaningful Use Meaningful Use Diagnoses (Choose all that apply): Ischemic CVA CVA Therapy Assessed for PT,OT and/or ST?: Yes Ischemic Stroke Antithrombotic order at d/c?: Yes Dx of Atrial fib/flutter?: No Statins at discharge?: Yes If patient is 75 or younger, pt will be discharged on HIGH intensity statin.: Y es Primary Dx Acute Ischemic CVA?: No IV thrombolytic ordered during stay?: No Reason IV thrombolytic not ordered: Treatment not Indicated Discharge Plan Admission Admit Date/Time: 10/03/25 01:16 Primary Reason for Your Visit: Shortness of breath Attending Provider: Yanet Lopes Primary Care Provider: Melissa Ozuna NP Consulting Providers: Gloria Wolf; Marcos Alfredo; Mark Garrido; Nathan Bill; Eleazar Valle; Clarence Vo; Payton Aaron; Reid Murillo; Hallie Lowery; Harpreet Gray; Cathie Cantu; Dmitri James; Ricardo Garcia; Isadora Jalloh; Venkatesh Cleveland; Farhat Hunter; Kennedy Becerra; Analisa Bundy; Laura Rodas; Ruth Altamirano; Angie Leon; Jose L Ryan; Stoney Ojeda; Neli Love; Deepa Blanco; Gama Rodriguez; Mary Mayen; Neli Moore; Viktor Morejon; Taran Garcia; Rufus Barker; Jhony Smith; Alonso Mcknight; Emmett Brown; Tess Dietrich; Coleen Tejada; Margo Vásquez; Darshana Ricks; Ramon Mckeon; Bart Maurer; Davon Mcguire; Catia Mercer; Mau Hoover; Stoney Michael Instructions Patient Instructions: COPD Controlled Breathing Dc, Chronic Lung Disease Avoid These Additional Instructions / Restrictions: DISCHARGE INSTRUCTIONS PLEASE READ *Please take this with you to your next doctors appointment* - You will be discharged on additional 5 days of prednisone, this has been sent to [facility] pharmacy -Please follow-up with neurology upon discharge, please call Dr. Benson's office upon discharge to schedule an appointment for stroke ( [phone]) -Due to some narrowing of the vessels in your neck it is recommended that you follow-up with a vascular doctor on discharge on a nonemergent basis. Please call Dr. Solis's office to make an appointment to establish care. - You have been scheduled an appointment with Adriana Olsen NP in the pulmonology office 10/31/2024 at 11:15 AM to follow-up for your lungs -You will be discharged with instructions for a 30-day heart monitor to evaluate for any underlying abnormal heart rhythms -Please call your primary care provider's office upon discharge to schedule a hospital follow up within 1 week. -For any concerning signs or symptoms please call 911 or proceed to the nearest emergency department Discharge Orders/Prescriptions Prescriptions: New prednisone 20 mg tablet 40 mg PO DAILY 5 Days Qty: 10 0RF Continued nitroglycerin 0.4 mg tablet, sublingual 0.4 mg SUBLINGUAL Q5-15M PRN (Reason: chest pain) aspirin [Adult Low Dose Aspirin] 81 mg tablet,delayed release (DR/EC) 81 mg PO DAILY atorvastatin 40 mg tablet 40 mg PO QHS oxybutynin chloride 10 mg tablet extended release 24hr 10 mg PO DAILY albuterol sulfate [Ventolin HFA] 90 mcg/actuation HFA aerosol inhaler 2 puff INHALATION Q4H PRN (Reason: shortness of breath or wheezing) Qty: 8.5 6RF brimonidine 0.2 % drops 1 drp ophthalmic (eye) DAILY dorzolamide 2 % drops 1 drp ophthalmic (eye) TID lisinopril 20 mg tablet 20 mg PO DAILY Qty: 90 3RF furosemide 40 mg tablet 40 mg PO DAILY clopidogrel 75 mg tablet 75 mg PO DAILY OXYGEN - Supplemental ([facility] INFORMATIONAL USE ONLY) Patient Comments: pt states she uses 3L @ home and gets it through [facility] amlodipine 10 mg Tablet 10 mg PO DAILY Qty: 30 2RF metoprolol tartrate 50 mg Tablet 50 mg PO BID Qty: 60 2RF potassium chloride 20 mEq tablet,ER particles/crystals 20 meq PO BID Discontinued prednisone 20 mg Tablet 40 mg PO BREAKFAST Qty: 2 0RF Other Ambulatory Orders: 30 Day Event Recorder Preventi (Urgent) Timeframe: 1 Day Facility: [facility] - Location: Cardiovascular Services Ordered By: Dr. Yanet Lopes Referrals / Follow Up: Gerard Solis MD [Med Staff - Active Staff, Vascular Surgery] Referral Note: Due to some narrowing of the vessels in your neck it is recommended that you follow-up with a vascular doctor on discharge on a nonemergent basis. Please call Dr. Solis's office to make an appointment to establish care Car Benson MD [Non-Staff -Ordering Privileges, Neurology] Referral Note: -Please follow-up with neurology upon discharge, please call Dr. Benson's office upon discharge to schedule an appointment for stroke (ph [phone]) Melissa Ozuna NP, OXYACETYLENE CUTTER-C [Primary Care Provider, [facility]] Adriana Wiggins OXYACETYLENE CUTTER-C [Med Staff - [facility] Prof, Pulmonology] - 10/31/25 11:15 am Disposition Disposition (needs filled in before D/C Order can be placed): Home Health Service Charges/Coding Visit Charges Inpatient E&M: 31915 Disch Hosp >30min
--- NOTE | 2025-10-06 12:30 | CASEMGMT ---
GERARDO LENZ reviewed therapy notes, patient is ambulating 200ft with therapy. GERARDO LENZ in to discuss discharge planning with patient. Patient states she would like to go home and is agreeable to HHC. Per assessment, patient and family prefer [facility]. Patient asked this GERARDO LENZ to call son to update regarding discharge planning. GERARDO LENZ called son, Dave Gaming. Son agreeable for patient to discharge home and prefers [facility]. Son denied further needs or concerns. GERARDO LENZ updated DC planning aide to send referral to [facility]. GERARDO LENZ updated hospitalist regarding plan for discharge, discharge planned for today per hospitalist.
--- NOTE | 2025-10-06 12:36 | CASEMGMT ---
Addendum entered by Nubia Hughes 10/07/25 12:47: Order that was physically signed by physician sent to [facility] via [facility]. Addendum entered by Nubia Hughes 10/06/25 16:09: Updated HH order sent via [facility]. Addendum entered by Nubia Hughes 10/06/25 13:57: [facility] has accepted with SOC 10/07-10/08. DC Instructions sent via [facility]. Original Note: Discharge Planning HH referral sent via [facility] to [facility]. Nubia Hughes DC Planning Asst.
--- NOTE | 2025-10-06 14:36 | CASEMGMT ---
GERARDO LENZ called and spoke with Graciela at [facility]. She states she is still waiting to hear back from [facility] and will reach out to family once setup is confirmed. GERARDO LENZ updated discharge plan to reflect information.
[2025-10-06 15:00] VITALS: BP 146/78; PULSE 78; RESP 17; TEMP 36.8; O2SAT 99
[2025-10-06 15:41] VITALS: BMI 19.5
== END 2025-10-06 16:15 | disposition home health service (06) | DRG 189 ==
LOC: ED 10-03 00:38 → ICU 10-03 01:45 → PCU 10-04 13:13
PROVIDERS: Internal Medicine; Admitting Provider Family Medicine; Emergency Provider Specialist/Technologist Athletic Trainer; PCP Nurse Practitioner Family; Visit Provider Internal Medicine
DX: J96.21 Acute and chronic respiratory failure with hypoxia (principal); I63.9 Cerebral infarction, unspecified; G81.94 Hemiplegia, unspecified affecting left nondominant side; E87.20 Acidosis, unspecified; J44.1 Chronic obstructive pulmonary disease with (acute) exacerbation; I50.32 Chronic diastolic (congestive) heart failure; I42.2 Other hypertrophic cardiomyopathy; Z66 Do not resuscitate; I11.0 Hypertensive heart disease with heart failure; I70.8 Atherosclerosis of other arteries; J96.22 Acute and chronic respiratory failure with hypercapnia; I65.02 Occlusion and stenosis of left vertebral artery; I25.10 Atherosclerotic heart disease of native coronary artery without angina pectoris; F17.210 Nicotine dependence, cigarettes, uncomplicated; E78.00 Pure hypercholesterolemia, unspecified; F41.9 Anxiety disorder, unspecified; M48.02 Spinal stenosis, cervical region; I65.23 Occlusion and stenosis of bilateral carotid arteries; Z95.5 Presence of coronary angioplasty implant and graft; Z79.899 Other long term (current) drug therapy; Z90.710 Acquired absence of both cervix and uterus; Z79.02 Long term (current) use of antithrombotics/antiplatelets; H40.9 Unspecified glaucoma; R29.705 NIHSS score 5; Z79.82 Long term (current) use of aspirin
CPT/HCPCS: 36600; 70450; 70496; 70498; 70551; 71045; 80053; 82803; 82962; 83605; 83735; 83880; 84100; 84145; 84484; 85025; 87040; 87149; 87449; 87631; 87633; 87641; 93005; 93308; 94002; 94003; 94640; 94668; 94762; 97116; 97163; 97167; 97530; 97535; 97802; 99285; 99406; Q9967; A4216; J0696; J1938

== ENCOUNTER 2025-10-07 19:56 | Observation (INO) | payer MEDICARE, SELFPAY ==
[2025-10-07] VITALS (22 sets, daily range): BP systolic 155–210; BP diastolic 70–167; PULSE 82–118; RESP 19–34; TEMP 36.4–37.2; O2SAT 94–100; BMI 19.3
--- NOTE | 2025-10-07 20:07 | EX.ED.DYSGE1 ---
HPI History of Present Illness Chief Complaint: Shortness of Breath 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 Non-rheumatic mitral regurgitation Depression Anxiety Pulmonary hypertension Essential hypertension Pure hypercholesterolemia Atherosclerotic heart disease of [place] coronary artery without angina pectoris Home Medications ?Medication ?Instructions ?Recorded ?Last Taken ?Type aspirin 81 mg tablet,delayed 81 mg PO DAILY heart 07/08/19 10/07/25 History release (Adult Low Dose Aspirin) atorvastatin 40 mg tablet 40 mg PO QHS cholestrol 07/08/19 10/06/25 History oxybutynin chloride 10 mg 10 mg PO DAILY overactive bladd 07/08/19 10/07/25 History tablet,extended release 24 hr albuterol sulfate 90 mcg/actuation 2 puff inhalation Q4H PRN 12/23/20 10/07/25 Rx aerosol inhaler (Ventolin HFA) shortness of breath or wheezing #8.5 grams brimonidine 0.2 % eye drops 1 drp ophthalmic (eye) DAILY eyes 06/16/21 10/07/25 History dorzolamide 2 % eye drops 1 drp ophthalmic (eye) TID eyes 06/16/21 10/07/25 History lisinopril 20 mg tablet 20 mg PO DAILY #90 tabs 06/16/21 10/07/25 Rx clopidogrel 75 mg tablet 75 mg PO DAILY heart 07/17/25 Unknown History furosemide 40 mg tablet 40 mg PO DAILY heart 07/17/25 10/07/25 History OXYGEN - Supplemental ([facility] COPD 07/18/25 Unknown History INFORMATIONAL USE ONLY) amlodipine 10 mg tablet 10 mg PO DAILY #30 tabs 07/26/25 10/07/25 Rx metoprolol tartrate 50 mg tablet 50 mg PO BID #60 tabs 07/26/25 10/07/25 Rx potassium chloride 20 mEq 20 meq PO BID 10/03/25 10/07/25 History tablet,extended release(part/cryst) prednisone 20 mg tablet 40 mg (2 x 20 mg) PO DAILY 5 days 10/06/25 10/07/25 Rx #10 tabs spironolactone 25 mg tablet 25 mg PO DAILY 10/07/25 10/06/25 History Allergy/AdvReac Type Severity Reaction Status Date / Time No Known Allergies Allergy Verified 10/07/25 19:57 Family History Mother Diabetes Father No problems noted. Surgical History History of coronary artery stent placement (01/02/17) History of hysterectomy Social History household members: spouse Smoking Status: Current every day smoker tobacco type: cigarettes Tobacco: How many years used: 46 second hand exposure: Yes alcohol intake: never substance use type: does not use caffeine: Yes Type: coffee EXAM Physical Exam Const Vital Signs: 10/07/25 19:59 10/07/25 20:33 10/07/25 20:34 Temperature 99 F Temperature Source Oral Pulse Rate 96 99 Respiratory Rate 22 H Blood Pressure 210/108 H 165/88 H Blood Pressure Mean 142 Pulse Ox 98 Oxygen Delivery Method Room Air Room Air 10/07/25 20:40 10/07/25 20:45 10/07/25 20:45 Temperature Temperature Source Pulse Rate 105 H Respiratory Rate 33 H Blood Pressure 155/70 H 155/70 H Blood Pressure Mean 93 93 Pulse Ox 98 98 Oxygen Delivery Method 10/07/25 21:00 10/07/25 21:15 10/07/25 21:30 Temperature Temperature Source Pulse Rate 118 H Respiratory Rate 19 H Blood Pressure Blood Pressure Mean Pulse Ox 100 100 100 Oxygen Delivery Method 10/07/25 21:45 10/07/25 21:56 10/07/25 22:00 Temperature Temperature Source Pulse Rate 107 H 110 H 104 H Respiratory Rate 28 H 24 H 22 H Blood Pressure 166/108 H Blood Pressure Mean 127 Pulse Ox 98 100 100 Oxygen Delivery Method Room Air 10/07/25 22:15 10/07/25 22:30 10/07/25 22:45 Temperature Temperature Source Pulse Rate 105 H 112 H 91 Respiratory Rate 24 H 27 H 34 H Blood Pressure 180/119 H Blood Pressure Mean 135 Pulse Ox 100 98 96 Oxygen Delivery Method Room Air 10/07/25 23:00 10/07/25 23:12 10/07/25 23:12 Temperature 97.6 F L Temperature Source Pulse Rate 92 92 94 Respiratory Rate 24 H 24 H 19 H Blood Pressure 192/85 H 192/85 H 195/126 H Blood Pressure Mean 114 120 141 Pulse Ox 97 97 97 Oxygen Delivery Method Room Air 10/07/25 23:13 10/07/25 23:15 10/07/25 23:18 Temperature Temperature Source Pulse Rate 100 97 Respiratory Rate 27 H 25 H Blood Pressure 195/126 H 192/167 H Blood Pressure Mean 149 175 Pulse Ox 97 96 Oxygen Delivery Method 10/07/25 23:19 10/07/25 23:21 10/07/25 23:30 Temperature Temperature Source Pulse Rate 100 90 91 Respiratory Rate 20 H 28 H 24 H Blood Pressure 173/97 H 173/97 H 180/103 H Blood Pressure Mean 119 122 128 Pulse Ox 97 96 94 Oxygen Delivery Method Room Air MDM MDM MDM Narrative Medical decision making narrative: HISTORY OF PRESENT ILLNESS: Chief complaint: Shortness of breath 70-year-old female history of hypertension, hyperlipidemia, Atrial fibrillation, COPD complicated by chronic hypoxic respiratory failure on 2 L nasal cannula PRN, myocardial fibrosis, pulmonary hypertension presents with shortness of breath. The patient states over the last 24 to 48 hours had worsening shortness of breath. Notes a dry cough is nonproductive. Denies fever. No sick contacts. Denies leg swelling. Denies chest pain. Denies history of PE. No she is smoking 2 weeks ago. Denies bleeding diathesis. REVIEW OF SYSTEMS: Pertinent positives: Shortness of breath Pertinent negatives: As per HPI PHYSICAL EXAM: Nursing triage notes reviewed, Vital signs reviewed Constitutional: please see mdm HENT: MMM Eyes: Pupils equal round and reactive to light, Extraocular muscles intact Neck: No stridor, no JVD, full neck ROM Lungs: Overall clear, patient had mild conversational dyspnea, she was tachypneic, no rales, no rhonchi, no wheezing. Heart: Regular rate and rhythm, No murmurs, No rubs and No gallops, 2+ distal pulses (radial, femoral, posterior tibial) in all extremities Abdomen: Soft, there is no tenderness, rigidity, rebound or guarding, no obvious peritoneal signs, no palpable pulsatile abdominal masses, no auscultated abdominal bruit : No CVAT Extremities: No edema Neuro: No new focal neurological deficits, cranial nerves II through XII intact, 5/5 strength in all present extremities. Intact sensation to light touch in all present extremities, 2+ reflexes bilateral patella tendons. Skin: No rash or lesions noted MEDICAL DECISION MAKING: Chief Complaint: please see HPI External records reviewed: Reviewed recent hospitalization from 10/03/2025 until 10/06/2025. Patient was admitted for respiratory failure, COPD exacerbation questionable pneumonia. Reviewed echocardiogram from 10/04/2025 which showed ejection fraction 65% Factors affecting care: none Social determinants of health: None History obtained from others: none Consults: Internal medicine (Dr. Caba) [facility] Narrative: The patient was initially hypertensive the blood pressure 210/108 otherwise afebrile and nontoxic-appearing. The patient was euvolemic. No significant lower extremity edema. Her lungs were overall clear however she was slightly tachypneic with mild conversational dyspnea. I considered the following differential diagnosis: Hypertensive emergency, CHF exacerbation, pneumonia, viral illness, PE, anemia, electrolyte disturbance, arrhythmia I obtained a broad lab and imaging workup to further determine if the patient was suffering from a life-threatening etiology. I initially gave the patient sublingual nitroglycerin and attempt to lower her blood pressure. Patient noted she had already taken her home blood pressure medications today. Will continue to assess the patient's blood pressure during her ED course ALL IMAGES (IF OBTAINED) HAVE BEEN PERSONALLY REVIEWED AND INTERPRETED BY MYSELF. EKG with rate controlled atrial fibrillation rate of 104, normal axis, prolonged QTc interval CTA of the chest shows no evidence of pulm embolism, heart failure shows signs of emphysema and COPD CBC with no leukocytosis, mild anemia, no thrombocytopenia BMP without significant electrolyte disturbances, no acute kidney injury Initial troponin elevated consistent with myocardial ischemia BNP elevated consistent with increased ventricular stress likely secondary to hypertensive emergency COVID/RSV/flu negative The synthesis of the patient's history, physical exam, labs images suggest likely hypertensive emergency producing elevated blood pressure, shortness of breath and elevated BNP. Patient transient responding to oral nitroglycerin with initial drop in her blood pressures into the 160s systolic. Blood pressure continued to elevate though after this intervention as high as 192/85. Given continuing elevating blood pressure I treated the patient with 10 mg of IV labetalol. Given concern for elevated troponin, NSTEMI and hypertensive emergency will admit the patient here to telemetry. Will discuss with hospitalist The patient and/or family, caregivers express understanding. The patient and/or family, caregivers agrees with the plan. Shared decision making: I will have a discussion with the patient and or visitors regarding risk/benefits of further testing or admission. They will be made aware of of the risk/benefits inherent in this decision they will be given the opportunity to voice understanding. Total critical care time today provided was at least 0 minutes. This excludes separately billable procedures. Critical care time (if documented) is secondary to the patient having high probability of clinically significant/life threatening deterioration in the patient's condition which required my urgent intervention. Impression: 1. Dyspnea 2. Hypertensive emergency 3. History of COPD Dispo: Admit This note was generated with eyefactive dictation software. It may contain incorrect words, spelling, and punctuation that were not noted in review of the chart prior to signing. Lab Data Labs: Laboratory Results - last 24 hr 10/07/25 10/07/25 20:25 22:36 WBC 6.9 RBC 4.14 L Hgb 11.3 L Hct 34.2 L MCV 82.6 MCH 27.3 MCHC 33.0 RDW Std Deviation 49.1 H RDW Coeff of Shivam 16.3 H Plt Count 475 H MPV 9.9 Immature Gran % (Auto) 0.900 Neut % (Auto) 79.5 H Lymph % (Auto) 13.3 L [place] % (Auto) 6.3 Eos % (Auto) 0.0 Baso % (Auto) 0.0 Absolute Neuts (auto) 5.5 Absolute Lymphs (auto) 0.92 Nucleated RBC % 0 Sodium 137 Potassium 3.8 Chloride 95 L Carbon Dioxide 24.3 Anion Gap 18 H BUN 30 H Creatinine 1.02 Estim Creat Clear Calc 40.93 L Est GFR (MDRD) Non-Af 59 L BUN/Creatinine Ratio 29.3 H Glucose 120 H Calcium 9.5 Troponin T High Sens 110 H* D Troponin T Hi Sens 2 Hr 106 H* NT pro BNP II 3583 H Radiography Diagnostic Testing: Clinical Impression(s) from Imaging Studies Chest CTA 10/07/25 21:00 IMPRESSION: No evidence of acute pulmonary embolism. Severe centrilobular and moderate paraseptal emphysema, which likely accounts for the patient's shortness of breath. Cardiomegaly with coronary artery calcifications and moderate to severe systemic atherosclerosis, consistent with underlying cardiovascular disease. Right lower lobe calcified granulomas, compatible with prior granulomatous infection. Reading Location: [facility] Discharge Plan Triage Chief Complaint: Shortness of Breath ED Provider: Bernardo Sharif Dx/Rx/DC Orders Primary Care Provider: Melissa Ozuna NP
--- NOTE | 2025-10-07 20:15 | EKG12_ITS ---
Test Reason : DYSRHYTHMIA Blood Pressure : */* mmHG Vent. Rate : 104 BPM Atrial Rate : * BPM P-R Int : * ms QRS Dur : 76 ms QT Int : 418 ms P-R-T Axes : * 52 81 degrees QTcB Int : 549 ms Atrial fibrillation with rapid ventricular response with premature ventricular or aberrantly conducted complexes Minimal voltage criteria for LVH, may be normal variant ( Sokolow-Mendez ) Nonspecific ST and T wave abnormality Prolonged QT Abnormal ECG When compared with ECG of 02-Oct-2025 23:58, ST less depressed in Anterior leads T wave inversion no longer evident in Inferior leads T wave inversion no longer evident in Lateral leads Confirmed by David Colindres ([id number]), photography editor CHRISTOS GERARDO ([id number]) on 10/09/2025 10:29:09 AM Referred By: Confirmed By: David Colindres
[2025-10-07] MEDS: Nitroglycerin SL (ED/IMG/CATH) 0.4 MG TABLET SL (20:34)
[2025-10-07 20:37] LABS: Hematocrit 34.2 % (37-47); Hemoglobin 11.3 g/dL (12.0-15.0); Immature Granulocytes Count 0.060 X10^3/uL (0.0-0.0); Mean Corp Hgb Conc 33.0 g/dL (32-36); Mean Corpuscular Volume 82.6 fL (81-99); Mean Platelet Vol. 9.9 fl (6.2-12.0); NRBC Flagged by Analyzer 0 % (0-5); Platelet Count 475 K/mm3 (150-450); RBC Distribution Width CV 16.3 % (11.6-14.6); RBC Distribution Width SD 49.1 fl (35.1-43.9); Red Blood Count 4.14 M/mm3 (4.2-5.4); White Blood Count 6.9 K/mm3 (4.4-11.0)
--- NOTE | 2025-10-07 21:00 | CT_ITS ---
PROCEDURE: CTA CHEST W/WO CONTRAST 10/07/2025 REASON FOR EXAM: SOB, TACHYCARDIA, RECENT HOSPITALIZATION R/O PE TECHNIQUE: Procedure Code: [id number] Modality: CT Procedure: CTA CHEST W/WO CONTRAST Multiplanar Sagittal and Coronal images were obtained. CONTRAST: Isovue 370 VOLUME: 99 mL One or more dose reduction techniques were used (e.g., Automated exposure control, adjustment of the mA and/or kV according to patient size, use of iterative reconstruction technique). RADIATION DOSE SUMMARY: CTDlvol: 3+3 mGy DLP: 117 mGycm COMPARISON: 07/25/2025. FINDINGS: The peripheral soft tissues unremarkable. Degenerative changes of the spine. The esophagus is normal in caliber. The upper abdomen is unremarkable. [id number] atherosclerosis. Coronary artery calcifications are present. The heart is enlarged. Severe centrilobular and moderate paraseptal emphysema. No pulmonary artery filling defects. Right lower lobe calcified granulomas. CT/CTA Chest W/WO Contrast IMPRESSION: No evidence of acute pulmonary embolism. Severe centrilobular and moderate paraseptal emphysema, which likely accounts f or the patient's shortness of breath. Cardiomegaly with coronary artery calcifications and moderate to severe systemi c atherosclerosis, consistent with underlying cardiovascular disease. Right lower lobe calcified granulomas, compatible with prior granulomatous infe ction. Reading [facility] [place]
[2025-10-07 21:10] LABS: Anion Gap 18 (5-15); BUN 30 mg/dL (4-19); BUN/Creat Ratio 29.3 RATIO (10-20); Calcium,Total 9.5 mg/dL (7.6-11.0); Carbon Dioxide 24.3 mmol/L (21.0-32.0); Chloride 95 mmol/L (98-108); Estimated Creatinine Clearance 40.93 ml/min (50-250); Glucose 120 mg/dL (70-99); Potassium 3.8 mmol/L (3.3-5.1)
--- NOTE | 2025-10-07 21:13 | ED.RN ---
PER PT. REQUEST NATALIE UPDATED WITH PLAN OF CARE AT THIS TIME
[2025-10-07 21:30] LABS: Pro- Brain NATRIURETIC PEPTIDE 3583 pg/mL (<=900); Troponin T High Sensitivity 110 ng/L (<=14)
--- OUTSIDE RECORDS SUMMARY | 2025-10-07 21:36 | XMS RPT_ITS | CCD ---
Author Organization [facility] Care Team Providers Care Estate Planning Director Name Role Phone Opal Brambila Alpa Unavailable Unavailable FERCHO VILLASEÑOR Primary Care Physician Marissa Rounding Nurse, Amaury Unavailable Barb Ernandez Unavailable Unavailable Elvin Blanc PA-C Primary Care Provider [phone] Fercho Villaseñor DO Unavailable [phone] JACK CARMICHAEL DO Attending Unavailable JACK CARMICHAEL [...] Unavailable KENZIE FONTANA Primary Care Unavailable Laith DYEHOUSE WORKER-C, Alfonso Primary Care Physician Dr. Bernardo Sharif DO Emergency Department Physi sarah Zuniga DO, Dr. Santiago Admitting Physician Candy vailable Zuniga DO, Dr. Santiago Nurse Practitioner Unav ailable Juni PAREDES, Dr. Rodríguez Nurse Practitioner [phone] Radhika PAREDES, Dr. Flores Nurse Practitioner [phone] Fly PAREDES, Dr. Evans Nurse Practitioner Leonard GONG, Dr. Bush Nurse Practitioner [phone] Tavo PAREDES, Dr. Jack Chacko Nurse Practitioner [phone] Lidia PAREDES, Dr. Mathews Nurse Practitioner Marina PAREDES, Dr. Mullins Nurse Practitioner [phone] Alondra PAREDES, Dr. Brand Nurse Practitioner Jacob PAREDES, Dr. Rizvi Nurse Practitioner [phone] Jose PAREDES, Dr. Silva Nurse Practitioner [phone] Hernan PAREDES, Dr. Benavides Nurse Practitioner [phone] Dr. Laura Rodas MD Nurse Practitioner [phone] Adarsh PAREDES, Dr. Miranda Nurse Practitioner Unavail alexandria Blanco MD, Dr. Arenas Nurse Practitioner [phone] Jose PAREDES, Dr. Chirinos Nurse Practitioner [phone] Lucero PAREDES, Dr. Hooper Nurse Practitioner Juan Luis PAREDES, Dr. Gupta Nurse Practitioner [phone] Stephanie GONG, Dr. Christine Nurse Practitioner Kaur PAREDES, Dr. Pulido Nurse Practitioner [phone] Terrell PAREDES, Dr. Horne Nurse Practitioner Linda GONG, Dr. Navarro Nurse Practitioner [phone] Maynor PAREDES, Dr. Mays Nurse Practitioner [phone] Ruslan PAREDES, Dr. Bardales Nurse Practitioner Kiko PAREDES, Dr. León Nurse Practitioner Alysha PAREDES, Dr. Renee Rossi Attending Physician Danielle GONG, Dr. Gee Nurse Practitioner Maia DYEHOUSE WORKER-C, Apple Nurse Practitione r Leonard GONG, Dr. Bush Attending Physician Kuldip PAREDES, Dr. Tamez Attending Physician Danielle GONG, Dr. Gee Attending Physician Alysha PAREDES, Dr. Renee Rossi Nurse Practitioner Maia DYEHOUSE WORKER-C, Apple Attending Physici an Cole PAREDES, Dr. Jenkins Nurse Practitioner Yvette GONG, Dr. Peng Nurse Practitioner Raman DYEHOUSE WORKER-C, Earline Nurse Practitioner Doc DYEHOUSE WORKER-C, Analy Nurse Practitioner Lakisha Orozco Nurse Practitioner Espinoza PAREDES, Dr. Argueta Nurse Practitioner Dr. Gerard Santos DO Referring Provider Alysha PAREDES, Dr. Renee Rossi Referring Provider Espinoza PAREDES, Dr. Argueta Attending Physician Jack Zuniga Admitting Unavailable Gerard Santos Attending Unavailable Laith DYEHOUSE WORKER, Alfonso Primary Care Unavailable Marcos Alfredo Consulting [...] Consulting Unavailable Espinoza Nagapradee Consulting Unavailsonu Ozuna DYEHOUSE WORKER, Alfonso Primary Care Unavailable Dashawn Christiansen Attending Unavailable Laith DYEHOUSE WORKER, Alfonso Primary Care Unavailable Laith DYEHOUSE WORKER, Alfonso Referring Unavailable Adriana Wiggins Attending Unavailable Laith DYEHOUSE WORKER, Alfonso Primary Care Unavailable Jack Zuniga Admitting Unavailable Renee Encarnacion Attending Unavailable Jack Zuniga Consulting Unavailable Gerard Santos Consulting Unavailable Gregory Galvan Consulting Unavailable Danish Crawford Consulting Unavailable Earline Camargo Consulting Unavailable Analy Davis Consulting Unavailable Lakisha Dunn Consulting Unavailable Apple Carvalho Consulting Marcos Kent Consulting Unavailable Mark Garrido Consulting Unavailable Nathan Bill Consulting Unavailable Eleazar Valle Consulting Unavailable Jack oV Consulting Unavailable Reid Murillo Consulting Unavailable Harpreet Gray Consulting Unavailable Cathie Cantu Consulting Unavailab le Dand, Dmitri Consulting Unavailable Ricardo Garcia Consulting Unavailable Kennedy Becerra Consulting Unavailable Clark, Laura Consulting Unavailable Aljundi, Lamia Consulting Unavailable Blanco, Deepa Consulting Unavailable Jose, Taran Consulting Unavailable Irukulla, Rufus Consulting Unavailable Juan Luis, Alonso Consulting Unavailable Dhesi, Emmett Consulting Unavailable Dietrich, Sujoy Consulting Unavailable [place], Soleyah Consulting Unavailable Fernstrheath, Ramon Consulting Unavailable [...] NKDA; 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: [NKDA] allergy to substance 7 [employer] Work Phone: NEGATED: Highlighted row has been ruled out! (1 source) Observed no known allergies at [facility] No Known Allergies propensity to adverse reactions [employer] Work Phone: Medications Current Medications Medication Drug Class(es) Dates Sig (Normalized) Sig (Original) [id number] 200 actuat albuterol 0.09 mg/actuat metered dose inhaler (9 sources) beta2-Adrenergic Agonist Start: 07-08-2019 End: 12-23-2020 Start: 01-12-2017 PROVENTIL HFA 108 (90 Base) MCG/ACT AERS every 6 hrs as needed ALBUTEROL SULFATE [id number] Juanjo Marr MD take 2 puff(s) by [...] wheezing, # 8.5 gram(s), 3 Refill(s), Pharmacy: [facility], 157.5, cm, 09/02/23 6:47:00 EST, [...] wheezing, # 8.5 gram(s), 3 Refill(s), Pharmacy: [facility], 157.5, cm, 09/02/23 6:47:00 EST, [...] wheezing, # 8.5 gram(s), 3 Refill(s), Pharmacy: [facility], 157.5, cm, 09/02/23 6:47:00 EST, [...] One tablet by mouth daily ATORVASTATIN CALCIUM [id number] Rashida Hampton RN brimonidine tartrate 2 mg/ml [...] BID, # 180 tab(s), 0 Refill(s), Pharmacy: [facility], 157.5, cm, 11/04/24 11:10:00 EST, Height, kg, 11/04/24 11:10:00 EST, Dosing Weight Start Date: 11/28/24 Status: Ordered Medication Dispense Status: Completed Quantity: 180.0 Unit: tab(s) Total Allowed Fills: 1 Fills Dispensed: 0 Start: 01-22-2024 Coreg 6.25 mg oral tablet Dose : 6.25 mg = 1 tab(s), Oral, BID, # 180 tab(s), 3 Refill(s), Pharmacy: [facility], 157.5, cm, 01/22/24 16:06:00 EDT, Height, kg, [...] refills, # 90 tab(s), 0 Refill(s), Pharmacy: [facility], 157.5, cm, 03/05/25 15:36:00 EDT, Height, kg, 03/05/25 15:36:00 EDT, Dosing Weight Start Date: 05/16/25 Status: Ordered Medication Dispense Status: Completed Quantity: 90.0 Unit: tab(s) Total Allowed Fills: 1 Fills Dispensed: 0 Start: 09-02-2024 Zetia 10 mg or al tablet Dose : 10 mg = 1 tab(s), Oral, qDay, # 90 tab(s), 1 Refill(s), Pharmacy: [facility], 157.5, cm, 02/22/24 16:04:00 EDT, Height, kg, 02/22/24 16:04:00 EDT, Dosing Weight Start Date: 09/02/24 Status: Ordered Quantity: 90.0 Unit: tab(s) Repeat number: 2 30 actuat fluticasone furoate 0.1 mg/actuat / umeclidinium 0.0625 mg/actuat / vilanterol 0.025 mg/actuat dry powder inhaler (2 sources) Anticholinergic, Corticosteroid, beta2-Adrenergic Agonist take 3 puff(s) by inhalation once daily ihjwalgadvi-vvgppmawz-ajhrpndk (Trelegy Ellipta) 100-62.5-25 mcg blister with device Inhale 3 puffs once daily. Active furosemide 40 mg oral tablet (8 sources) Loop Diuretic Sta rt: Start: 06-25-2025 End: 12-22-2025 Lasix 40 mg oral tablet Dose : 40 mg = 1 tab(s), Oral, qDay, # 90 tab(s), 1 Refill(s), Pharmacy: [facility], 160, cm, 06/16/25 9:24:00 EDT, Height, kg, [...] BIDM, # 60 tab(s), 3 Refill(s), Pharmacy: [facility], 157.5, cm, 09/02/23 6:47:00 EST, [...] tablet by mouth twice daily METOPROLOL TARTRATE [id number] Rashida Hampton RN Start: 01-06-2017 take 0.5 tablet by m out once daily METOPROLOL SUCCINATE ER 25 MG [id number] One-half tablet by mouth daily METOPROLOL SUCCINATE [id number] Juanjo Marr MD montelukast 10 mg oral [...] 3 as needed for chest pain. NITROGLYCERIN [id number] Juanjo Marr MD OXcarbazepine 150 mg oral [...] once daily OXYBUTYNIN CHLORIDE ER 10 MG [id number] One tablet by mouth daily (HOLD) OXYBUTYNIN CHLORIDE [id number] Sharron Nguyen RN microencapsulated potassium chloride 20 meq extended release oral tablet (2 sources) Start: 06-20-2024 KlorGhulam M20 o ral tablet, extended release Dose : 20 mEq = 1 tab(s), Oral, BID, # 60 tab(s), 5 Refill(s), Pharmacy: [facility], 157.5, cm, 02/22/24 16:04:00 EDT, Height, kg, [...] qDay, # 3 tab(s), 0 Refill(s), Pharmacy: [facility], 160, cm, 06/16/25 9:24:00 EDT, Height, kg, [...] qDay, # 60 tab(s), 3 Refill(s), Pharmacy: [facility], 157.5, cm, 09/02/23 6:47:00 EST, Height, kg, 09/02/23 6:47:00 EST, Dosing Weight Start Date: 09/06/23 Status: Ordered sacubitril 97 mg / valsartan 103 mg oral tablet (3 sources) Angiotensin 2 Receptor Cherelle Start: 03-06-2025 take 1 tablet by mouth twice daily Entresto 97 mg-103 mg oral tablet Dose = 1 tab(s), Oral, BID, # 180 tab(s), 2 Refill(s), Pharmacy: [facility], 157.5, cm, 03/05/25 15:36:00 EDT, Height, kg, 03/05/25 15:36:00 EDT, Dosing Weight Start Date: 03/06/25 Status: Ordered Medication Dispense Status: Completed Quantity: 180.0 Unit: tab(s) Total Allowed Fills: 3 Fills Dispensed: 0 Start: 01-22-2024 take 1 tablet by santos th twice daily Entresto 49 mg-51 mg oral tablet Dose = 1 tab(s), Oral, BID, # 180 tab(s), 3 Refill(s), Pharmacy: [facility], 157.5, cm, 01/22/24 16:06:00 EDT, Height, kg, 01/22/24 16:06:00 EDT, Dosing Weight Start Date: 01/22/24 Status: Ordered Quantity: 180.0 Unit: tab(s) Repeat number: 4 Start: 09-06-2023 take 1 tablet by santos th twice daily Entresto 24 mg-26 mg oral tablet Dose = 1 tab(s), Oral, BID, # 60 tab(s), 3 Refill(s), Pharmacy: [facility], 157.5, cm, 09/02/23 6:47:00 EST, [...] swallow)., # 60 EA, 3 Refill(s), Pharmacy: [facility], 157.5, cm, 09/02/23 6:47:00 EST, [...] qDayM, # 90 tab(s), 3 Refill(s), Pharmacy: [facility] [place], 160, cm, 06/16/25 9:24:00 EDT, Height, kg, [...] disease (16 sources) Atherosclerotic heart disease of [place] coronary artery without angina pectoris; 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: [Coronary [...] Respiratory failure; insufficiency; arrest (adult) (11 sources) Sdiii-lv-ngdfphj respiratory failure; 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: [Acute and chronic respiratory [...] 10-09-2024 Episodic Other aftercare (2 sources) 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; 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: [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] Onset: 01-06-2017 01-06-2017 Episodic Other aftercare (1 source) shelter (current) use of aspirin; 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: [long term (current) use of aspirin] Onset: 11-04-2024 Episodic Other aftercare (1 source) long term (current) use of antithrombotics/ant iplatelets; 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: [long term (current) use of antithrombotics/ant iplatelets] Onset: 11-04-2024 [...] # 0.04 x10EE3/UL Normal 0.00 - 0.10 [facility] Comment on above: Performed By: #### 2 04572 ####[facility],[address] [place] [address] 64687 Basophils/100 WBC (Bld) 0.6 % Normal 0.0 - 2.0 [facility] Comment on above: Performed By: #### 2 20523 ####[facility],[address] [place] [address] CBC + DIFF Normal [facility] Comment on above: Result Comment: CBC- COMPLETE BLOOD COUNT Performed By: #### 2 42413 ####[facility],[address] [place] [address] EO # 0.05 x10EE3/UL Normal 0.00 - 0.50 [facility] Comment on above: Performed By: #### 2 82590 ####[facility],[address] [place], [place] [id number] Eosinophils/100 WBC (Bld) 0.7 % Normal 0.0 - 7.0 [facility] Comment on above: Performed By: #### 2 09624 ####[facility],[address] [place] [address] Erythrocyte distribution width (RBC) [Ratio] 15.3 % Normal 12.0 - 15.6 [facility] Comment on above: Performed By: #### 2 37283 ####[facility],[address] [place] [address] Hematocrit (Bld) [Volume fraction] 23.7 % Low 34.0 - 46.0 [facility] Comment on above: Performed By: #### 2 22579 ####[facility],[address] [place], [place] [id number] Hemoglobin (Bld) [Mass/Vol] 8.1 g/dL Low 12.0 - 16.0 [facility] Comment on above: Performed By: #### 2 47364 ####[facility],[address] [place] [address] Lymph # 1.58 x10EE3/UL Normal 0.80 - 2.80 [facility] Comment on above: Performed By: #### 2 41597 ####[facility],[address] [place], [place] [id number] Lymphocytes/100 WBC (Bld) 21.5 % Normal 20.0 - 45.0 [facility] Comment on above: Performed By: #### 2 42674 ####[facility],[address] [place], [place] [id number] MANUAL DIFF N/A Normal [facility] Comment on above: Performed By: #### 2 78767 ####[facility],[address] [place] [address] MCH (RBC) [Entitic mass] 29 pg Normal 27 - 33 [facility] Comment on above: Performed By: #### 2 75040 ####[place] [address] MCHC 34 X10 3 Normal 32 - 36 [facility] Comment on above: Performed By: #### 2 31195 ####[place] [id number] MCV (RBC) [Entitic vol] 86 fL Normal 80 - 99 [facility] Comment on above: Performed By: #### 2 81401 ####[facility],[address] [place] [address] [place] # 0.84 x10EE3/UL Normal 0.20 - 1.00 [facility] Comment on above: Performed By: #### 2 63223 ####[place] [id number] MONOS % 11.5 % High 0.0 - 10.0 [facility] Comment on above: Performed By: #### 2 20669 ####[facility],[address] [place] [address] 28534 Morphology Dandy (Bld) [Interp] N/A Normal [facility] Comment on above: Performed By: #### 2 06534 ####[facility],[address] [place] [address] 18359 Neut # 4.85 x10EE3/UL Normal 1.50 - 7.10 [facility] Comment on above: Performed By: #### 2 53038 ####[facility],[address] [place] [address] 84380 Neutrophils/100 WBC (Bld) 65.8 % Normal 46.0 - 76.0 [facility] Comment on above: Performed By: #### 2 36742 ####[facility],[address] [place] [address] 22233 PLATELET 346 x10EE3/UL Normal 150 - 450 [facility] Comment on above: Performed By: #### 2 37515 ####[facility],[address] [place] [address] 14707 Platelet mean volume (Bld) [Entitic vol] 7.5 fL Normal 6.6 - 10.5 [facility] Comment on above: Result Comment: AUTO MATED DIFFERENTIAL Performed By: #### 2 51866 ####[facility],[address] [place] [address] 94106 RBC 2.75 x 10EE6/UL Low 4.10 - 5.30 [facility] Comment on above: Performed By: #### 2 18878 ####[facility],[address] [place] [address] 99400 WBC 7.4 x 10EE3/UL Normal 4.5 - 10.8 [facility] Comment on above: Performed By: #### 2 98097 ####[facility],[address] [place] [address] 25966 CMP with eGFRon 08-01-2025 AGE 70 years Normal [facility] Comment on above: Performed By: #### 2 75124 ####[facility],[address] [place] [address] 06720 Albumin [Mass/Vol] 2.1 g/dL Low 3.4 - 5.0 [facility] Comment on above: Performed By: #### 2 50221 ####[facility],[address] [place] [address] 37633 Albumin/Globulin [Mass ratio] 0.7 {ratio} Low 0.9 - 1.6 [facility] Comment on above: Performed By: #### 2 03973 ####[facility],[address] [place] [address] 09346 ALK PHOS 53 U/L Normal 46 - 116 [facility] Comment on above: Performed By: #### 2 40884 ####[facility],[address] [place] [address] 55889 ALT [Catalytic activity/Vol] 32 U/L Normal 16 - 63 [facility] Comment on above: Performed By: #### 2 00561 ####[facility],[address] [place] [address] 25214 Anion gap [Moles/Vol] 6 mmol/L Low 10 - 20 [facility] Comment on above: Performed By: #### 2 25077 ####[facility],[address] [place] [address] 36533 AST [Catalytic activity/Vol] 25 U/L Normal 13 - 39 [facility] Comment on above: Performed By: #### 2 77419 ####[facility],[address] [place] [address] 95275 B/C RATIO 19 ratio Normal 0 - 30 [facility] Comment on above: Performed By: #### 2 98684 ####[facility],[address] [place] [address] 91680 Bilirubin [Mass/Vol] 0.3 mg/dL Normal 0.2 - 1.0 [facility] Comment on above: Performed By: #### 2 18873 ####[facility],[address] [place] [address] 74330 Calcium [Mass/Vol] 8.0 mg/dL Low 8.5 - 10.1 [facility] Comment on above: Performed By: #### 2 30039 ####[facility],[address] [place] [address] 70447 Chloride [Moles/Vol] 99 mmol/L Normal 98 - 107 [facility] Comment on above: Performed By: #### 2 05600 ####[facility],[address] [place] [address] 12151 CMP with eGFR Normal [facility] Comment on above: Result Comment: COMP REHENSIVE METABOLIC PANEL Performed By: #### 2 51742 ####[facility],[address] [place] [address] 62371 CO2 [Moles/Vol] 33.8 mmol/L High 21.0 - 32.0 [facility] Comment on above: Performed By: #### 2 03389 ####[facility],[address] [place] [address] 36167 Creatinine [Mass/Vol] 0.62 mg/dL Normal 0.55 - 1.02 [facility] Comment on above: Performed By: #### 2 65348 ####[facility],[address] [place] [address] 30098 GFR/1.73 sq M.predicted among non-blacks MDRD (S/P/Bld) [Vol rate/Area] mL/min/{1.73_m2} Normal 60 - 999 [facility] Comment on above: Performed By: #### 2 03860 ####[facility],[address] [place] [address] 87131 Result Comment: ACCO RDING TO THE NATIONAL KIDNEY DISEASE EDUCATION PROGRAM(NKDE), A NORMAL eGFRIS A VALUE GREATER THAN OR EQUAL TO 60 ML/MIN/1.73 SQ METERS.CHRONIC KIDNEY DISEASE: <60mL/MIN/1.73 SQ METERSKIDNEY FAILURE: <15mL/MIN/1.73 SQ METERSTHIS TEST SHOULD ONLY BE USED FOR PATIENTS 18 YEARS OF AGE AND OLDER. Globulin (S) [Mass/Vol] 2.9 g/dL Normal 1.5 - 3.8 [facility] Comment on above: Performed By: #### 2 57112 ####[facility],[address] [place] [address] 57845 Glucose [Mass/Vol] 84 mg/dL Normal 74 - 106 [facility] Comment on above: Performed By: #### 2 32853 ####[facility],[address] [place] [address] 23380 Potassium [Moles/Vol] 2.9 mmol/L Critically low 3.5 - 5.1 [facility] Comment on above: Result Comment: { CA LLED TO GERARDO WYNN BY CB AT 0939{ READ BACK BY GERARDO WYNN RA AT 0930 Performed By: #### 2 02718 ####[facility],[address] [place] [address] 63608 Protein [Mass/Vol] 5.0 g/dL Low 6.4 - 8.2 [facility] Comment on above: Performed By: #### 2 08946 ####[facility],[address] [place] [address] 32802 Sodium [Moles/Vol] 136 mmol/L Normal 136 - 145 [facility] Comment on above: Performed By: #### 2 22576 ####[facility],[address] [place] [address] 45947 Urea nitrogen [Mass/Vol] 12 mg/dL Normal 7 - 18 [facility] Comment on above: Performed By: #### 2 16414 ####[facility],[address] [place] [address] 91677 Basic Metabolic Profile (BMP )on 07-29-2025 BUN Normal -19 [facility] Comment on above: Result Comment: Canc elled via OM: Order cancelled - Patient discharged Performed By: #### L 500.2500, L100.0100 ####[facility] [address] [place], [address] BUN/CRE Normal 10-20 [facility] Comment on above: Result Comment: Canc elled via OM: Order cancelled - Patient discharged Performed By: #### L 500.2500, L100.0100 ####[facility] [address] [place], [address] Calcium Normal 7.6-11.0 [facility] Comment on above: Result Comment: Canc elled via OM: Order cancelled - Patient discharged Performed By: #### L 500.2500, L100.0100 ####[facility] [address] [place], [address] CL Normal 98-108 [facility] Comment on above: Result Comment: Canc elled via OM: Order cancelled - Patient discharged Performed By: #### L 500.2500, L100.0100 ####[facility] [address] [place], [address] CO2 Normal 21.0-32.0 [facility] Comment on above: Result Comment: Canc elled via OM: Order cancelled - Patient discharged Performed By: #### L 500.2500, L100.0100 ####[facility] [address] [place], [address] CREAT,SERUM Normal 0.70-1.20 [facility] Comment on above: Result Comment: Canc elled via OM: Order cancelled - Patient discharged Performed By: #### L 500.2500, L100.0100 ####[facility] [address] [place], [address] eGFR Normal >60 [facility] Comment on above: Result Comment: Canc elled via OM: Order cancelled - Patient discharged Performed By: #### L 500.2500, L100.0100 ####[facility] [address] [place], [address] GAP Normal 5-15 [facility] Comment on above: Result Comment: Canc elled via OM: Order cancelled - Patient discharged Performed By: #### L 500.2500, L100.0100 ####[facility] [address] [place], [address] GLU Normal 70-99 [facility] Comment on above: Result Comment: Canc elled via OM: Order cancelled - Patient discharged Performed By: #### L 500.2500, L100.0100 ####[facility] [address] [place], [address] Potassium Normal 3.3-5.1 [facility] Comment on above: Result Comment: Canc elled via OM: Order cancelled - Patient discharged Performed By: #### L 500.2500, L100.0100 ####[facility] [address] [place], [address] Basic Metabolic Profile (BMP) Normal 133-145 [facility] Comment on above: Result Comment: Canc elled via OM: Order cancelled - Patient discharged Performed By: #### L 500.2500, L100.0100 ####[facility] [address] [place], [address] CBC W/Diff, Automatedon 10-0 7-2024 Absolute Neut Normal 2.0-7.7 [facility] Comment on above: Result Comment: Canc elled via OM: Order cancelled - Patient discharged Performed By: #### L 500.2500, L100.0100 ####[facility] [address] [place], [address] HCT Normal 37-47 [facility] Comment on above: Result Comment: Canc elled via OM: Order cancelled - Patient discharged Performed By: #### L 500.2500, L100.0100 ####[facility] [facility] [address] [place], [address] HGB Normal 12.0-15.0 [facility] Comment on above: Result Comment: Canc elled via OM: Order cancelled - Patient discharged Performed By: #### L 500.2500, L100.0100 ####[facility] [address] [place], [address] MCH Normal 27.0-32.0 [facility] Comment on above: Result Comment: Canc elled via OM: Order cancelled - Patient discharged Performed By: #### L 500.2500, L100.0100 ####[facility] [address] [place], [address] MCHC Normal 32-36 [facility] Comment on above: Result Comment: Canc elled via OM: Order cancelled - Patient discharged Performed By: #### L 500.2500, L100.0100 ####[facility] [address] [place], [address] MCV Normal 81-99 [facility] Comment on above: Result Comment: Canc elled via OM: Order cancelled - Patient discharged Performed By: #### L 500.2500, L100.0100 ####[facility] [address] [place], [address] NEUT% Normal 47-70 [facility] Comment on above: Result Comment: Canc elled via OM: Order cancelled - Patient discharged Performed By: #### L 500.2500, L100.0100 ####[facility] [address] [place], [address] PLT Normal 150-450 [facility] Comment on above: Result Comment: Canc elled via OM: Order cancelled - Patient discharged Performed By: #### L 500.2500, L100.0100 ####[facility] [address] [place], [address] RBC Normal 4.2-5.4 [facility] Comment on above: Result Comment: Canc elled via OM: Order cancelled - Patient discharged Performed By: #### L 500.2500, L100.0100 ####[facility] [address] [place], [address] RDW CV Normal 11.6-14.6 [facility] Comment on above: Result Comment: Canc elled via OM: Order cancelled - Patient discharged Performed By: #### L 500.2500, L100.0100 ####[facility] [address] [place], [address] RDW SD Normal 35.1-43.9 [facility] Comment on above: Result Comment: Canc elled via OM: Order cancelled - Patient discharged Performed By: #### L 500.2500, L100.0100 ####[facility] [address] [place], [address] WBC Normal 4.4-11.0 [facility] Comment on above: Result Comment: Canc elled via OM: Order cancelled - Patient discharged Performed By: #### L 500.2500, L100.0100 ####[facility] [address] [place], [address] Basic Metabolic Profile (BMP )on 07-28-2025 BUN Normal -19 [facility] Comment on above: Result Comment: Canc elled via OM: Order cancelled - Patient discharged Performed By: #### L 500.2500, L100.0100 ####[facility] [address] [place], [address] BUN/CRE Normal -20 [facility] Comment on above: Result Comment: Canc elled via OM: Order cancelled - Patient discharged Performed By: #### L 500.2500, L100.0100 ####[facility] [address] [place], [address] Calcium Normal 7.6-11.0 [facility] Comment on above: Result Comment: Canc elled via OM: Order cancelled - Patient discharged Performed By: #### L 500.2500, L100.0100 ####[facility] [address] [place], [address] CL Normal 98-108 [facility] Comment on above: Result Comment: Canc elled via OM: Order cancelled - Patient discharged Performed By: #### L 500.2500, L100.0100 ####[facility] [address] [place], [address] CO2 Normal 21.0-32.0 [facility] Comment on above: Result Comment: Canc elled via OM: Order cancelled - Patient discharged Performed By: #### L 500.2500, L100.0100 ####[facility] [address] [place], [address] CREAT,SERUM Normal 0.70-1.20 [facility] Comment on above: Result Comment: Canc elled via OM: Order cancelled - Patient discharged Performed By: #### L 500.2500, L100.0100 ####[facility] [address] [place], [address] eGFR Normal >60 [facility] Comment on above: Result Comment: Canc elled via OM: Order cancelled - Patient discharged Performed By: #### L 500.2500, L100.0100 ####[facility] [address] [place], [address] GAP Normal 5-15 [facility] Comment on above: Result Comment: Canc elled via OM: Order cancelled - Patient discharged Performed By: #### L 500.2500, L100.0100 ####[facility] [address] [place], [address] GLU Normal 70-99 [facility] Comment on above: Result Comment: Canc elled via OM: Order cancelled - Patient discharged Performed By: #### L 500.2500, L100.0100 ####[facility] [address] [place], [address] Potassium Normal 3.3-5.1 [facility] Comment on above: Result Comment: Canc elled via OM: Order cancelled - Patient discharged Performed By: #### L 500.2500, L100.0100 ####[facility] [address] [place], [address] Basic Metabolic Profile (BMP) Normal 133-145 [facility] Comment on above: Result Comment: Canc elled via OM: Order cancelled - Patient discharged Performed By: #### L 500.2500, L100.0100 ####[facility] [address] [place], [address] CBC W/Diff, Automatedon 10-0 Absolute Neut Normal 2.0-7.7 [facility] Comment on above: Result Comment: Canc elled via OM: Order cancelled - Patient discharged Performed By: #### L 500.2500, L100.0100 ####[facility] [address] [place], [address] HCT Normal 37-47 [facility] Comment on above: Result Comment: Canc elled via OM: Order cancelled - Patient discharged Performed By: #### L 500.2500, L100.0100 ####[facility] [address] [place], [address] HGB Normal 12.0-15.0 [facility] Comment on above: Result Comment: Canc elled via OM: Order cancelled - Patient discharged Performed By: #### L 500.2500, L100.0100 ####[facility] [address] [place], [address] MCH Normal 27.0-32.0 [facility] Comment on above: Result Comment: Canc elled via OM: Order cancelled - Patient discharged Performed By: #### L 500.2500, L100.0100 ####[facility] [address] [place], [address] MCHC Normal 32-36 [facility] Comment on above: Result Comment: Canc elled via OM: Order cancelled - Patient discharged Performed By: #### L 500.2500, L100.0100 ####[facility] [address] [place], [address] MCV Normal 81-99 [facility] Comment on above: Result Comment: Canc elled via OM: Order cancelled - Patient discharged Performed By: #### L 500.2500, L100.0100 ####[facility] [address] [place], [address] NEUT% Normal 47-70 [facility] Comment on above: Result Comment: Canc elled via OM: Order cancelled - Patient discharged Performed By: #### L 500.2500, L100.0100 ####[facility] [address] [place], [address] PLT Normal 150-450 [facility] Comment on above: Result Comment: Canc elled via OM: Order cancelled - Patient discharged Performed By: #### L 500.2500, L100.0100 ####[facility] [address] [place], [address] RBC Normal 4.2-5.4 [facility] Comment on above: Result Comment: Canc elled via OM: Order cancelled - Patient discharged Performed By: #### L 500.2500, L100.0100 ####[facility] [address] [place], [address] RDW CV Normal 11.6-14.6 [facility] Comment on above: Result Comment: Canc elled via OM: Order cancelled - Patient discharged Performed By: #### L 500.2500, L100.0100 ####[facility] [address] [place], [address] RDW SD Normal 35.1-43.9 [facility] Comment on above: Result Comment: Canc elled via OM: Order cancelled - Patient discharged Performed By: #### L 500.2500, L100.0100 ####[facility] [address] [place], [address] WBC Normal 4.4-11.0 [facility] Comment on above: Result Comment: Canc elled via OM: Order cancelled - Patient discharged Performed By: #### L 500.2500, L100.0100 ####[facility] [address] [place], [address] Basic Metabolic Profile (BMP )on 07-27-2025 BUN Normal -19 [facility] Comment on above: Result Comment: Canc elled via OM: Order cancelled - Patient discharged Performed By: #### L 100.0100, L500.2500 ####[facility] [address] [place], [address] BUN/CRE Normal - [facility] Comment on above: Result Comment: Canc elled via OM: Order cancelled - Patient discharged Performed By: #### L 100.0100, L500.2500 ####[facility] [address] [place], [address] Calcium Normal 7.6-11.0 [facility] Comment on above: Result Comment: Canc elled via OM: Order cancelled - Patient discharged Performed By: #### L 100.0100, L500.2500 ####[facility] [address] [place], [address] CL Normal 98-108 [facility] Comment on above: Result Comment: Canc elled via OM: Order cancelled - Patient discharged Performed By: #### L 100.0100, L500.2500 ####[facility] [address] [place], [address] CO2 Normal 21.0-32.0 [facility] Comment on above: Result Comment: Canc elled via OM: Order cancelled - Patient discharged Performed By: #### L 100.0100, L500.2500 ####[facility] [address] [place], [address] CREAT,SERUM Normal 0.70-1.20 [facility] Comment on above: Result Comment: Canc elled via OM: Order cancelled - Patient discharged Performed By: #### L 100.0100, L500.2500 ####[facility] [address] [place], [address] eGFR Normal >60 [facility] Comment on above: Result Comment: Canc elled via OM: Order cancelled - Patient discharged Performed By: #### L 100.0100, L500.2500 ####[facility] [address] [place], [address] GAP Normal 5-15 [facility] Comment on above: Result Comment: Canc elled via OM: Order cancelled - Patient discharged Performed By: #### L 100.0100, L500.2500 ####[facility] [address] [place], [address] GLU Normal 70-99 [facility] Comment on above: Result Comment: Canc elled via OM: Order cancelled - Patient discharged Performed By: #### L 100.0100, L500.2500 ####[facility] [address] [place], [address] Potassium Normal 3.3-5.1 [facility] Comment on above: Result Comment: Canc elled via OM: Order cancelled - Patient discharged Performed By: #### L 100.0100, L500.2500 ####[facility] [address] [place], [address] Basic Metabolic Profile (BMP) Normal 133-145 [facility] Comment on above: Result Comment: Canc elled via OM: Order cancelled - Patient discharged Performed By: #### L 100.0100, L500.2500 ####[facility] [address] [place], [address] CBC W/Diff, Automatedon 10-0 5-2024 Absolute Neut Normal 2.0-7.7 [facility] Comment on above: Result Comment: Canc elled via OM: Order cancelled - Patient discharged Performed By: #### L 100.0100, L500.2500 ####[facility] [address] [place], [address] HCT Normal 37-47 [facility] Comment on above: Result Comment: Canc elled via OM: Order cancelled - Patient discharged Performed By: #### L 100.0100, L500.2500 ####[facility] [address] [place], [address] HGB Normal 12.0-15.0 [facility] Comment on above: Result Comment: Canc elled via OM: Order cancelled - Patient discharged Performed By: #### L 100.0100, L500.2500 ####[facility] [address] [place], [address] MCH Normal 27.0-32.0 [facility] Comment on above: Result Comment: Canc elled via OM: Order cancelled - Patient discharged Performed By: #### L 100.0100, L500.2500 ####[facility] [address] [place], [address] MCHC Normal 32-36 [facility] Comment on above: Result Comment: Canc elled via OM: Order cancelled - Patient discharged Performed By: #### L 100.0100, L500.2500 ####[facility] [address] [place], [address] MCV Normal 81-99 [facility] Comment on above: Result Comment: Canc elled via OM: Order cancelled - Patient discharged Performed By: #### L 100.0100, L500.2500 ####[facility] [address] [place], [address] NEUT% Normal 47-70 [facility] Comment on above: Result Comment: Canc elled via OM: Order cancelled - Patient discharged Performed By: #### L 100.0100, L500.2500 ####[facility] [address] [place], [address] PLT Normal 150-450 [facility] Comment on above: Result Comment: Canc elled via OM: Order cancelled - Patient discharged Performed By: #### L 100.0100, L500.2500 ####[facility] [address] [place], [address] RBC Normal 4.2-5.4 [facility] Comment on above: Result Comment: Canc elled via OM: Order cancelled - Patient discharged Performed By: #### L 100.0100, L500.2500 ####[facility] [address] [place], [address] RDW CV Normal 11.6-14.6 [facility] Comment on above: Result Comment: Canc elled via OM: Order cancelled - Patient discharged Performed By: #### L 100.0100, L500.2500 ####[facility] [address] [place], [address] RDW SD Normal 35.1-43.9 [facility] Comment on above: Result Comment: Canc elled via OM: Order cancelled - Patient discharged Performed By: #### L 100.0100, L500.2500 ####[facility] [address] [place], [address] WBC Normal 4.4-11.0 [facility] Comment on above: Result Comment: Canc elled via OM: Order cancelled - Patient discharged Performed By: #### L 100.0100, L500.2500 ####[facility] [address] [place], [address] Absolute lymphocyte countOrd ered By: Renee Encarnacion on 07-26-2025 Lymphocytes Auto (Unsp spec) [#/Vol] 2.80 10*3/uL 0.83-4.51 [facility] Anion gap in Serum or Plasma Ordered By: Renee Dominiquejennifer on 07-26-2025 Anion gap [Moles/Vol] 13 mmol/L 5-15 [facility] Automated lymphocyte count a s percentage of total leukocytesOrdered By: Renee Dominiquejennifer on 07-26-2025 Lymphocytes/100 WBC Auto (Unsp spec) 27.0 % 19-41 [facility] BUN/creatinine ratioOrdered By: Reneeteofilo Encarnacion on 07-26-2025 Urea nitrogen/Creatinine [Mass ratio] 30.2 mg/mg High 08-11 [facility] Basic Metabolic Profile (BMP )on 07-26-2025 BUN/CRE 30.2 RATIO High 08-11 [facility] Comment on above: Performed By: #### L 500.2500, L100.0100 ####[facility] [address] [place], [address] Calcium [Mass/Vol] 8.9 mg/dL Normal 7.6-11.0 [facility] Comment on above: Performed By: #### L 500.2500, L100.0100 ####[facility] [address] [place], [address] Chloride [Moles/Vol] 96 mmol/L Low 98-108 [facility] Comment on above: Performed By: #### L 500.2500, L100.0100 ####[facility] [address] [place], [address] CO2 [Moles/Vol] 25.7 mmol/L Normal 21.0-32.0 [facility] Comment on above: Performed By: #### L 500.2500, L100.0100 ####[facility] [address] [place], [address] Creatinine [Mass/Vol] 0.70 mg/dL Normal 0.70-1.20 [facility] Comment on above: Performed By: #### L 500.2500, L100.0100 ####[facility] [address] [place], [address] ECRCL 46.43 ml/min Low 50-250 [facility] Comment on above: Performed By: #### L 500.2500, L100.0100 ####[facility] [address] [place], [address] GAP 13 Normal 5-15 [facility] Comment on above: Performed By: #### L 500.2500, L100.0100 ####[facility] [address] [place], [address] GFR/1.73 sq M.predicted among non-blacks MDRD (S/P/Bld) [Vol rate/Area] 92 mL/min/{1.73_m2} Normal >60 [facility] Comment on above: Result Comment: mL/m in/1.73m2 CKD-EPI Creatinine Equation (2020) Performed By: #### L 500.2500, L100.0100 ####[facility] [address] [place], [address] Glucose [Mass/Vol] 98 mg/dL Normal 70-99 [facility] Comment on above: Performed By: #### L 500.2500, L100.0100 ####[facility] [address] [place], [address] Potassium [Moles/Vol] 2.8 mmol/L Low 3.3-5.1 [facility] Comment on above: Result Comment: Hemo lysis present, Results??could be affected.?? Performed By: #### L 500.2500, L100.0100 ####[facility] [address] [place], [address] Sodium [Moles/Vol] 135 mmol/L Normal 133-145 [facility] Comment on above: Performed By: #### L 500.2500, L100.0100 ####[facility] [address] [place], [address] Urea nitrogen [Mass/Vol] 21 mg/dL High 4-19 [facility] Comment on above: Performed By: #### L 500.2500, L100.0100 ####[facility] [address] [place], [address] Basophil percentageOrdered B y: Renee Encarnacion on 07-26-2025 Basophils/100 WBC (Bld) 0.1 % 0-1 [facility] Bedside Glucoseon 07-26-2025 [place] GLU 101 mg/dL Normal 74-106 [facility] Comment on above: Result Comment: CHERYL WILLS OF PATIENT CARE PER NURSING PROTOCOL Performed By: #### L 501.080 ####[facility] [address] [place], [address] CBC W/Diff, Automatedon 10-0 Absolute Lymph 2.80 X10 3/uL Normal 0.83-4.51 [facility] Comment on above: Performed By: #### L 500.2500, L100.0100 ####[facility] [address] [place], [address] Absolute Neut 6.2 X10 3/uL Normal 2.0-7.7 [facility] Comment on above: Performed By: #### L 500.2500, L100.0100 ####[facility] [address] [place], [address] Basophils/100 WBC (Bld) 0.1 % Normal 0-1 [facility] Comment on above: Performed By: #### L 500.2500, L100.0100 ####[facility] [address] [place], [address] Eosinophils/100 WBC (Bld) 0.9 % Normal 0-5 [facility] Comment on above: Performed By: #### L 500.2500, L100.0100 ####[facility] [address] [place], [address] Erythrocyte distribution width (RBC) [Ratio] 14.0 % Normal 11.6-14.6 [facility] Comment on above: Performed By: #### L 500.2500, L100.0100 ####[facility] [address] [place], [address] Hematocrit (Bld) [Volume fraction] 28.6 % Low 37-47 [facility] Comment on above: Performed By: #### L 500.2500, L100.0100 ####[facility] [address] [place], [address] Hemoglobin (Bld) [Mass/Vol] 9.6 g/dL Low 12.0-15.0 [facility] Comment on above: Performed By: #### L 500.2500, L100.0100 ####[facility] [address] [place], [address] IG% 2.900 High 0.0-0.9 [facility] Comment on above: Result Comment: IG% - Immature Granulocytes (promyelocytes, myelocytes andmetamyelocytes) > 1% indicates that a LEFT SHIFT is Present. Performed By: #### L 500.2500, L100.0100 ####[facility] [address] [place], [address] Lymphocytes/100 WBC (Bld) 27.0 % Normal 19-41 [facility] Comment on above: Performed By: #### L 500.2500, L100.0100 ####[facility] [address] [place], [address] MCH (RBC) [Entitic mass] 28.3 pg Normal 27.0-32.0 [facility] Comment on above: Performed By: #### L 500.2500, L100.0100 ####[facility] [address] [place], [address] MCHC (RBC) [Mass/Vol] 33.6 g/dL Normal 32-36 [facility] Comment on above: Performed By: #### L 500.2500, L100.0100 ####[facility] [address] [place], [address] MCV (RBC) [Entitic vol] 84.4 fL Normal 81-99 [facility] Comment on above: Performed By: #### L 500.2500, L100.0100 ####[facility] [address] [place], [address] Monocytes/100 WBC (Bld) 9.7 % Normal 0-10 [facility] Comment on above: Performed By: #### L 500.2500, L100.0100 ####[facility] [address] [place], [address] Neutrophils/100 WBC (Bld) 59.4 % Normal 47-70 [facility] Comment on above: Performed By: #### L 500.2500, L100.0100 ####[facility] [address] [place], [address] Nucleated RBC (Bld) [#/Vol] 0 10*3/uL Normal 0-5 [facility] Comment on above: Performed By: #### L 500.2500, L100.0100 ####[facility] [address] [place], [address] Platelet mean volume (Bld) [Entitic vol] 9.6 fL Normal 6.2-12.0 [facility] Comment on above: Performed By: #### L 500.2500, L100.0100 ####[facility] [address] [place], [address] Platelets (Bld) [#/Vol] 482 10*3/uL High 150-450 [facility] Comment on above: Performed By: #### L 500.2500, L100.0100 ####[facility] [address] [place], [address] RBC (Bld) [#/Vol] 3.39 10*6/uL Low 4.2-5.4 [facility] Comment on above: Performed By: #### L 500.2500, L100.0100 ####[facility] [address] [place], [address] RDW SD 43.3 fl Normal 35.1-43.9 [facility] Comment on above: Performed By: #### L 500.2500, L100.0100 ####[facility] [address] [place], [address] WBC (Bld) [#/Vol] 10.4 10*3/uL Normal 4.4-11.0 [facility] Comment on above: Performed By: #### L 500.2500, L100.0100 ####[facility] [address] [place], [address] Carbon dioxide, total [Moles /volume] in Central venous bloodOrdered By: Renee Encarnacion on 07-26-2025 CO2 [Moles/Vol] 25.7 mmol/L 21.0-32.0 [facility] Chloride assayOrdered By: Viki Encarnacion on 07-26-2025 Chloride [Moles/Vol] 96 mmol/L Low 98-108 [facility] Consultation - Cardiologyon 07-26-2025 Consultation - Cardiology Normal [facility] Eosinophil percentageOrdered By: Renee Encarnacion on 07-26-2025 Eosinophils/100 WBC (Bld) 0.9 % 0-5 [facility] Erythrocyte distribution wid th ratioOrdered By: Renee Encarnacion on 07-26-2025 Erythrocyte distribution width (RBC) [Ratio] 14.0 % 11.6-14.6 [facility] Erythrocyte distribution wid th standard deviationOrdered By: Renee Encarnacion on 07-26-2025 Erythrocyte distribution width (RBC) [Ratio] 43.3 fl 35.1-43.9 [facility] Glomerular filtration rate ( GFR) estimation/1.73 sq m using serum, plasma, or whole bOrdered By: Renee Encarnacion on 07-26-2025 GFR/1.73 sq M.predicted among non-blacks MDRD (S/P/Bld) [Vol rate/Area] 92 mL/min/{1.73_m2} >60 [facility] deOrdered By: Renee Encarnacion on 07-26-2025 Glucose [Mass/Vol] 101 mg/dL 74-106 [facility] Hematocrit Auto (Bld) [Volum e fraction]Ordered By: Reneeteofilo Encarnacion on 07-26-2025 Hematocrit (Bld) [Volume fraction] 28.6 % Low 37-47 [facility] Hemoglobin measurementOrdere d By: Renee Encarnacion on 07-26-2025 Hemoglobin (Bld) [Mass/Vol] 9.6 g/dL Low 12.0-15.0 [facility] Immature granulocytes/100 WB C Auto (Bld)Ordered By: Reneeteofilo Encarnacion on 07-26-2025 Immature granulocytes/100 WBC (Bld) 2.900 % High 0.0-0.9 [facility] MCV (mean corpuscular volume ) determinationOrdered By: Renee Encarnacion on 07-26-2025 MCV (RBC) [Entitic vol] 84.4 fL 81-99 [facility] Magnesiumon 07-26-2025 Magnesium [Mass/Vol] 2.2 mg/dL Normal 1.5-2.2 [facility] Comment on above: Performed By: #### L 501.5200 ####[facility] [address] [place], [address] Magnesium measurement (mass/ volume)Ordered By: Renee Encarnacion on 07-26-2025 Magnesium (Unsp spec) [Mass/Vol] 2.2 mg/dL 1.5-2.2 [facility] Mean corpuscular hemoglobin (MCH) determinationOrdered By: Renee Encarnacion on 07-26-2025 MCH (RBC) [Entitic mass] 28.3 pg 27.0-32.0 [facility] Monocyte percentageOrdered B y: Renee Alysha on 07-26-2025 Monocytes/100 WBC (Bld) 9.7 % 0-10 [facility] Neutrophil percentageOrdered By: Renee Encarnacion on 07-26-2025 Neutrophils/100 WBC (Bld) 59.4 % 47-70 [facility] Platelet countOrdered By: Viki Encarnacion on 07-26-2025 Platelets (Bld) [#/Vol] 482 10*3/uL High 150-450 [facility] Potassium measurement (mass/ volume)Ordered By: Renee Encarnacion on 07-26-2025 Potassium (Unsp spec) [Mass/Vol] 2.8 mmol/L Low 3.3-5.1 [facility] RBC Auto (Bld) [#/Vol]Ordere d By: Renee Encarnacion on 07-26-2025 RBC (Bld) [#/Vol] 3.39 10*6/uL Low 4.2-5.4 [facility] Serum creatinine measurement (mass/volume)Ordered By: Renee Encarnacion on 07-26-2025 Creatinine [Mass/Vol] 0.70 mg/dL 0.70-1.20 [facility] Serum glucose measurement (m ass/volume)Ordered By: Renee Encarnacion on 07-26-2025 Glucose [Mass/Vol] 98 mg/dL 70-99 [facility] Serum or plasma calcium erik urement (mass/volume)Ordered By: Renee Encarnacion on 07-26-2025 Calcium [Mass/Vol] 8.9 mg/dL 7.6-11.0 [facility] Serum or plasma urea nitroge n measurement (mass/volume)Ordered By: Renee Encarnacion on 07-26-2025 Urea nitrogen [Mass/Vol] 21 mg/dL High 4-19 [facility] Sodium levelOrdered By: Renee Encarnacion on 07-26-2025 Sodium [Moles/Vol] 135 mmol/L 133-145 [facility] White blood cell (WBC) count Ordered By: Renee Encarnacion on 07-26-2025 WBC (Bld) [#/Vol] 10.4 10*3/uL 4.4-11.0 [facility] Basic Metabolic Profile (BMP )on 07-25-2025 BUN/CRE 36.1 RATIO High 10-20 [facility] Comment on above: Performed By: #### L 100.0100, L500.2500 ####[facility] [address] [place], [address] Calcium [Mass/Vol] 8.7 mg/dL Normal 7.6-11.0 [facility] Comment on above: Performed By: #### L 100.0100, L500.2500 ####[facility] [address] [place], [address] Chloride [Moles/Vol] 98 mmol/L Normal 98-108 [facility] Comment on above: Performed By: #### L 100.0100, L500.2500 ####[facility] [address] [place], [address] CO2 [Moles/Vol] 26.7 mmol/L Normal 21.0-32.0 [facility] Comment on above: Performed By: #### L 100.0100, L500.2500 ####[facility] [address] [place], [address] Creatinine [Mass/Vol] 0.70 mg/dL Normal 0.70-1.20 [facility] Comment on above: Performed By: #### L 100.0100, L500.2500 ####[facility] [address] [place], [address] ECRCL 46.84 ml/min Low 50-250 [facility] Comment on above: Performed By: #### L 100.0100, L500.2500 ####[facility] [address] [place], [address] GAP 12 Normal 5-15 [facility] Comment on above: Performed By: #### L 100.0100, L500.2500 ####[facility] [address] [place], [address] GFR/1.73 sq M.predicted among non-blacks MDRD (S/P/Bld) [Vol rate/Area] 92 mL/min/{1.73_m2} Normal >60 [facility] Comment on above: Result Comment: mL/m in/1.73m2 CKD-EPI Creatinine Equation (2020) Performed By: #### L 100.0100, L500.2500 ####[facility] [address] [place], [address] Glucose [Mass/Vol] 102 mg/dL High 70-99 [facility] Comment on above: Performed By: #### L 100.0100, L500.2500 ####[facility] [address] [place], [address] Potassium [Moles/Vol] 3.0 mmol/L Low 3.3-5.1 [facility] Comment on above: Performed By: #### L 100.0100, L500.2500 ####[facility] [address] [place], [address] Sodium [Moles/Vol] 137 mmol/L Normal 133-145 [facility] Comment on above: Performed By: #### L 100.0100, L500.2500 ####[facility] [address] [place], [address] Urea nitrogen [Mass/Vol] 25 mg/dL High 4-19 [facility] Comment on above: Performed By: #### L 100.0100, L500.2500 ####[facility] [address] [place], [address] Bedside Glucoseon 07-25-2025 FINGERSTICK GLU 114 mg/dL High 74-106 [facility] Comment on above: Result Comment: CHERYL WILLS OF PATIENT CARE PER NURSING PROTOCOL Performed By: #### L 501.080 ####[facility] [address] [place], [address] FINGERSTICK GLU 163 mg/dL High 74-106 [facility] Comment on above: Result Comment: CHERYL GEMENT OF PATIENT CARE PER NURSING PROTOCOL Performed By: #### L 501.080 ####[facility] [address] [place], [address] FINGERSTICK GLU 129 mg/dL High 74-106 [facility] Comment on above: Result Comment: CHERYL GEMENT OF PATIENT CARE PER NURSING PROTOCOL Performed By: #### L 501.080 ####[facility] [address] [place], [address] FINGERSTICK GLU 111 mg/dL High 74-106 [facility] Comment on above: Result Comment: CHERYL GEMENT OF PATIENT CARE PER NURSING PROTOCOL Performed By: #### L 501.080 ####[facility] [address] [place], [address] CBC W/Diff, Automatedon 10-0 3-2025 Absolute Lymph 2.65 X10 3/uL Normal 0.83-4.51 [facility] Comment on above: Performed By: #### L 100.0100, L500.2500 ####[facility] [address] [place], [address] Absolute Neut 6.4 X10 3/uL Normal 2.0-7.7 [facility] Comment on above: Performed By: #### L 100.0100, L500.2500 ####[facility] [address] [place], [address] Basophils/100 WBC (Bld) 0.2 % Normal 0-1 [facility] Comment on above: Performed By: #### L 100.0100, L500.2500 ####[facility] [address] [place], [address] Eosinophils/100 WBC (Bld) 1.1 % Normal 0-5 [facility] Comment on above: Performed By: #### L 100.0100, L500.2500 ####[facility] [address] [place], [address] Erythrocyte distribution width (RBC) [Ratio] 13.9 % Normal 11.6-14.6 [facility] Comment on above: Performed By: #### L 100.0100, L500.2500 ####[facility] [address] [place], [address] Hematocrit (Bld) [Volume fraction] 29.8 % Low 37-47 [facility] Comment on above: Performed By: #### L 100.0100, L500.2500 ####[facility] [address] [place], [address] Hemoglobin (Bld) [Mass/Vol] 9.9 g/dL Low 12.0-15.0 [facility] Comment on above: Performed By: #### L 100.0100, L500.2500 ####[facility] [address] [place], [address] IG% 1.800 High 0.0-0.9 [facility] Comment on above: Result Comment: IG% - Immature Granulocytes (promyelocytes, myelocytes andmetamyelocytes) > 1% indicates that a LEFT SHIFT is Present. Performed By: #### L 100.0100, L500.2500 ####[facility] [address] [place], [address] Lymphocytes/100 WBC (Bld) 25.5 % Normal 19-41 [facility] Comment on above: Performed By: #### L 100.0100, L500.2500 ####[facility] [address] [place], [address] MCH (RBC) [Entitic mass] 28.7 pg Normal 27.0-32.0 [facility] Comment on above: Performed By: #### L 100.0100, L500.2500 ####[facility] [address] [place], [address] MCHC (RBC) [Mass/Vol] 33.2 g/dL Normal 32-36 [facility] Comment on above: Performed By: #### L 100.0100, L500.2500 ####[facility] [address] [place], [address] MCV (RBC) [Entitic vol] 86.4 fL Normal 81-99 [facility] Comment on above: Performed By: #### L 100.0100, L500.2500 ####[facility] [address] [place], [address] Monocytes/100 WBC (Bld) 10.5 % High 0-10 [facility] Comment on above: Performed By: #### L 100.0100, L500.2500 ####[facility] [address] [place], [address] Neutrophils/100 WBC (Bld) 60.9 % Normal 47-70 [facility] Comment on above: Performed By: #### L 100.0100, L500.2500 ####[facility] [address] [place], [address] Nucleated RBC (Bld) [#/Vol] 0 10*3/uL Normal 0-5 [facility] Comment on above: Performed By: #### L 100.0100, L500.2500 ####[facility] [address] [place], [address] Platelet mean volume (Bld) [Entitic vol] 9.5 fL Normal 6.2-12.0 [facility] Comment on above: Performed By: #### L 100.0100, L500.2500 ####[facility] [address] [place], [address] Platelets (Bld) [#/Vol] 499 10*3/uL High 150-450 [facility] Comment on above: Performed By: #### L 100.0100, L500.2500 ####[facility] [address] [place], [address] RBC (Bld) [#/Vol] 3.45 10*6/uL Low 4.2-5.4 [facility] Comment on above: Performed By: #### L 100.0100, L500.2500 ####[facility] [address] [place], [address] RDW SD 43.7 fl Normal 35.1-43.9 [facility] Comment on above: Performed By: #### L 100.0100, L500.2500 ####[facility] [address] [place], [address] WBC (Bld) [#/Vol] 10.4 10*3/uL Normal 4.4-11.0 [facility] Comment on above: Performed By: #### L 100.0100, L500.2500 ####[facility] [address] [place], [address] CTA Chest W/WO Contraston CTA Chest W/WO Contrast Normal [facility] D-Dimer Quantitative (DVT/PE )on 07-25-2025 D-DIMER QUANT 1.10 FEU/ug/m Invalid Interpretation Code 0.27-0.49 [facility] Comment on above: Result Comment: D-Di adri ELEVATED (>0.49): Additional studies and clinicalassessments are indicated to conclude diagnosis of:Deep Vein Thrombosis (DVT) or Pulmonary EmbolismCRITICAL VALUE CALLED TO RADHA VIRK07/25/25 Yokasta Pratt.RESULTS READ BACK BY SAME. Performed By: #### L 300.8000 ####[facility] [address] [place], [address] Basic Metabolic Profile (BMP )on 07-24-2025 BUN/CRE 41.8 RATIO High 10-20 [facility] Comment on above: Performed By: #### L 100.0100, L500.2500 ####[facility] [address] [place], [address] Calcium [Mass/Vol] 8.8 mg/dL Normal 7.6-11.0 [facility] Comment on above: Performed By: #### L 100.0100, L500.2500 ####[facility] [address] [place], [address] Chloride [Moles/Vol] 97 mmol/L Low 98-108 [facility] Comment on above: Performed By: #### L 100.0100, L500.2500 ####[facility] [address] [place], [address] CO2 [Moles/Vol] 25.1 mmol/L Normal 21.0-32.0 [facility] Comment on above: Performed By: #### L 100.0100, L500.2500 ####[facility] [address] [place], [address] Creatinine [Mass/Vol] 0.85 mg/dL Normal 0.70-1.20 [facility] Comment on above: Performed By: #### L 100.0100, L500.2500 ####[facility] [address] [place], [address] ECRCL 45.04 ml/min Low 50-250 [facility] Comment on above: Performed By: #### L 100.0100, L500.2500 ####[facility] [address] [place], [address] GAP 12 Normal 5-15 [facility] Comment on above: Performed By: #### L 100.0100, L500.2500 ####[facility] [address] [place], [address] GFR/1.73 sq M.predicted among non-blacks MDRD (S/P/Bld) [Vol rate/Area] 73 mL/min/{1.73_m2} Normal >60 [facility] Comment on above: Result Comment: mL/m in/1.73m2 CKD-EPI Creatinine Equation (2020) Performed By: #### L 100.0100, L500.2500 ####[facility] [address] [place], [address] Glucose [Mass/Vol] 102 mg/dL High 70-99 [facility] Comment on above: Performed By: #### L 100.0100, L500.2500 ####[facility] [address] [place], [address] Potassium [Moles/Vol] 3.1 mmol/L Low 3.3-5.1 [facility] Comment on above: Performed By: #### L 100.0100, L500.2500 ####[facility] [address] [place], [address] Sodium [Moles/Vol] 135 mmol/L Normal 133-145 [facility] Comment on above: Performed By: #### L 100.0100, L500.2500 ####[facility] [address] [place], [address] Urea nitrogen [Mass/Vol] 36 mg/dL High 4-19 [facility] Comment on above: Performed By: #### L 100.0100, L500.2500 ####[facility] [address] [place], [address] Bedside Glucoseon 07-24-2025 FINGERSTICK GLU 193 mg/dL High 74-106 [facility] Comment on above: Result Comment: CHERYL WILLS OF PATIENT CARE PER NURSING PROTOCOL Performed By: #### L 501.080 ####[facility] [address] [place], [address] FINGERSTICK GLU 135 mg/dL High 74-106 [facility] Comment on above: Result Comment: CHERYL GEMENT OF PATIENT CARE PER NURSING PROTOCOL Performed By: #### L 501.080 ####[facility] [address] [place], [address] FINGERSTICK GLU 138 mg/dL High 74-106 [facility] Comment on above: Result Comment: CHERYL GEMENT OF PATIENT CARE PER NURSING PROTOCOL Performed By: #### L 501.080 ####[facility] [address] [place], [address] FINGERSTICK GLU 97 mg/dL Normal 74-106 [facility] Comment on above: Result Comment: CHERYL GEMENT OF PATIENT CARE PER NURSING PROTOCOL Performed By: #### L 501.080 ####[facility] [address] [place], [address] CBC W/Diff, Automatedon 10-0 2-5 Absolute Lymph 2.58 X10 3/uL Normal 0.83-4.51 [facility] Comment on above: Performed By: #### L 100.0100, L500.2500 ####[facility] [address] [place], [address] Absolute Neut 5.9 X10 3/uL Normal 2.0-7.7 [facility] Comment on above: Performed By: #### L 100.0100, L500.2500 ####[facility] [address] [place], [address] Basophils/100 WBC (Bld) 0.1 % Normal 0-1 [facility] Comment on above: Performed By: #### L 100.0100, L500.2500 ####[facility] [address] [place], [address] Eosinophils/100 WBC (Bld) 0.6 % Normal 0-5 [facility] Comment on above: Performed By: #### L 100.0100, L500.2500 ####[facility] [address] [place], [address] Erythrocyte distribution width (RBC) [Ratio] 14.4 % Normal 11.6-14.6 [facility] Comment on above: Performed By: #### L 100.0100, L500.2500 ####[facility] [address] [place], [address] Hematocrit (Bld) [Volume fraction] 31.8 % Low 37-47 [facility] Comment on above: Performed By: #### L 100.0100, L500.2500 ####[facility] [address] [place], [address] Hemoglobin (Bld) [Mass/Vol] 10.5 g/dL Low 12.0-15.0 [facility] Comment on above: Performed By: #### L 100.0100, L500.2500 ####[facility] [address] [place], [address] IG% 1.700 High 0.0-0.9 [facility] Comment on above: Result Comment: IG% - Immature Granulocytes (promyelocytes, myelocytes andmetamyelocytes) > 1% indicates that a LEFT SHIFT is Present. Performed By: #### L 100.0100, L500.2500 ####[facility] [address] [place], [address] Lymphocytes/100 WBC (Bld) 26.7 % Normal 19-41 [facility] Comment on above: Performed By: #### L 100.0100, L500.2500 ####[facility] [address] [place], [address] MCH (RBC) [Entitic mass] 28.7 pg Normal 27.0-32.0 [facility] Comment on above: Performed By: #### L 100.0100, L500.2500 ####[facility] [address] [place], [address] MCHC (RBC) [Mass/Vol] 33.0 g/dL Normal 32-36 [facility] Comment on above: Performed By: #### L 100.0100, L500.2500 ####[facility] [address] [place], [address] MCV (RBC) [Entitic vol] 86.9 fL Normal 81-99 [facility] [facility] Comment on above: Performed By: #### L 100.0100, L500.2500 ####[facility] [address] [place], [address] Monocytes/100 WBC (Bld) 10.0 % Normal 0-10 [facility] Comment on above: Performed By: #### L 100.0100, L500.2500 ####[facility] [address] [place], [address] Neutrophils/100 WBC (Bld) 60.9 % Normal 47-70 [facility] Comment on above: Performed By: #### L 100.0100, L500.2500 ####[facility] [address] [place], [address] Nucleated RBC (Bld) [#/Vol] 0 10*3/uL Normal 0-5 [facility] Comment on above: Performed By: #### L 100.0100, L500.2500 ####[facility] [address] [place], [address] Platelet mean volume (Bld) [Entitic vol] 8.9 fL Normal 6.2-12.0 [facility] Comment on above: Performed By: #### L 100.0100, L500.2500 ####[facility] [address] [place], [address] Platelets (Bld) [#/Vol] 464 10*3/uL High 150-450 [facility] Comment on above: Performed By: #### L 100.0100, L500.2500 ####[facility] [address] [place], [address] RBC (Bld) [#/Vol] 3.66 10*6/uL Low 4.2-5.4 [facility] Comment on above: Performed By: #### L 100.0100, L500.2500 ####[facility] [address] [place], [address] RDW SD 45.8 fl High 35.1-43.9 [facility] Comment on above: Performed By: #### L 100.0100, L500.2500 ####[facility] [address] [place], [address] WBC (Bld) [#/Vol] 9.7 10*3/uL Normal 4.4-11.0 [facility] Comment on above: Performed By: #### L 100.0100, L500.2500 ####[facility] [address] [place], [address] Basic Metabolic Profile (BMP )on 07-23-2025 BUN/CRE 33.7 RATIO High 10-20 [facility] Comment on above: Performed By: #### L 100.0100, L500.2500 ####[facility] [address] [place], [address] Calcium [Mass/Vol] 8.9 mg/dL Normal 7.6-11.0 [facility] Comment on above: Performed By: #### L 100.0100, L500.2500 ####[facility] [address] [place], [address] Chloride [Moles/Vol] 101 mmol/L Normal 98-108 [facility] Comment on above: Performed By: #### L 100.0100, L500.2500 ####[facility] [address] [place], [address] CO2 [Moles/Vol] 25.7 mmol/L Normal 21.0-32.0 [facility] Comment on above: Performed By: #### L 100.0100, L500.2500 ####[facility] [address] [place], [address] Creatinine [Mass/Vol] 0.68 mg/dL Low 0.70-1.20 [facility] Comment on above: Performed By: #### L 100.0100, L500.2500 ####[facility] [address] [place], [address] ECRCL 51.62 ml/min Normal 50-250 [facility] Comment on above: Performed By: #### L 100.0100, L500.2500 ####[facility] [address] [place], [address] GAP 13 Normal 5-15 [facility] Comment on above: Performed By: #### L 100.0100, L500.2500 ####[facility] [address] [place], [address] GFR/1.73 sq M.predicted among non-blacks MDRD (S/P/Bld) [Vol rate/Area] 93 mL/min/{1.73_m2} Normal >60 [facility] Comment on above: Result Comment: mL/m in/1.73m2 CKD-EPI Creatinine Equation (2020) Performed By: #### L 100.0100, L500.2500 ####[facility] [address] [place], [address] Glucose [Mass/Vol] 133 mg/dL High 70-99 [facility] Comment on above: Performed By: #### L 100.0100, L500.2500 ####[facility] [address] [place], [address] Potassium [Moles/Vol] 2.9 mmol/L Low 3.3-5.1 [facility] Comment on above: Performed By: #### L 100.0100, L500.2500 ####[facility] [address] [place], [address] Sodium [Moles/Vol] 140 mmol/L Normal 133-145 [facility] Comment on above: Performed By: #### L 100.0100, L500.2500 ####[facility] [address] [place], [address] Urea nitrogen [Mass/Vol] 23 mg/dL High 4-19 [facility] Comment on above: Performed By: #### L 100.0100, L500.2500 ####[facility] [address] [place], [address] Bedside Glucoseon 07-23-2025 FINGERSTICK GLU 129 mg/dL High 74-106 [facility] Comment on above: Result Comment: CHERYL GEMENT OF PATIENT CARE PER NURSING PROTOCOL Performed By: #### L 501.080 ####[facility] [address] [place], [address] FINGERSTICK GLU 123 mg/dL High 74-106 [facility] Comment on above: Result Comment: CHERYL GEMENT OF PATIENT CARE PER NURSING PROTOCOL Performed By: #### L 501.080 ####[facility] [address] [place], [address] FINGERSTICK GLU 137 mg/dL High 74-106 [facility] Comment on above: Result Comment: CHERYL GEMENT OF PATIENT CARE PER NURSING PROTOCOL Performed By: #### L 501.080 ####[facility] [address] [place], [address] CBC W/Diff, Automatedon 10-0 Absolute Lymph 1.95 X10 3/uL Normal 0.83-4.51 [facility] Comment on above: Performed By: #### L 100.0100, L500.2500 ####[facility] [address] [place], [address] Absolute Neut 7.6 X10 3/uL Normal 2.0-7.7 [facility] Comment on above: Performed By: #### L 100.0100, L500.2500 ####[facility] [address] [place], [address] Basophils/100 WBC (Bld) 0.1 % Normal 0-1 [facility] Comment on above: Performed By: #### L 100.0100, L500.2500 ####[facility] [address] [place], [address] Eosinophils/100 WBC (Bld) 0.1 % Normal 0-5 [facility] Comment on above: Performed By: #### L 100.0100, L500.2500 ####[facility] [address] [place], [address] Erythrocyte distribution width (RBC) [Ratio] 15.0 % High 11.6-14.6 [facility] Comment on above: Performed By: #### L 100.0100, L500.2500 ####[facility] [address] [place], [address] Hematocrit (Bld) [Volume fraction] 29.6 % Low 37-47 [facility] Comment on above: Performed By: #### L 100.0100, L500.2500 ####[facility] [address] [place], [address] Hemoglobin (Bld) [Mass/Vol] 9.9 g/dL Low 12.0-15.0 [facility] Comment on above: Performed By: #### L 100.0100, L500.2500 ####[facility] [address] [place], [address] IG% 2.000 High 0.0-0.9 [facility] Comment on above: Result Comment: IG% - Immature Granulocytes (promyelocytes, myelocytes andmetamyelocytes) > 1% indicates that a LEFT SHIFT is Present. Performed By: #### L 100.0100, L500.2500 ####[facility] [address] [place], [address] Lymphocytes/100 WBC (Bld) 17.3 % Low 19-41 [facility] Comment on above: Performed By: #### L 100.0100, L500.2500 ####[facility] [address] [place], [address] MCH (RBC) [Entitic mass] 29.0 pg Normal 27.0-32.0 [facility] Comment on above: Performed By: #### L 100.0100, L500.2500 ####[facility] [address] [place], [address] MCHC (RBC) [Mass/Vol] 33.4 g/dL Normal 32-36 [facility] Comment on above: Performed By: #### L 100.0100, L500.2500 ####[facility] [address] [place], [address] MCV (RBC) [Entitic vol] 86.8 fL Normal 81-99 [facility] Comment on above: Performed By: #### L 100.0100, L500.2500 ####[facility] [address] [place], [address] Monocytes/100 WBC (Bld) 13.0 % High 0-10 [facility] Comment on above: Performed By: #### L 100.0100, L500.2500 ####[facility] [address] [place], [address] Neutrophils/100 WBC (Bld) 67.5 % Normal 47-70 [facility] Comment on above: Performed By: #### L 100.0100, L500.2500 ####[facility] [address] [place], [address] Nucleated RBC (Bld) [#/Vol] 0 10*3/uL Normal 0-5 [facility] Comment on above: Performed By: #### L 100.0100, L500.2500 ####[facility] [address] [place], [address] Platelet mean volume (Bld) [Entitic vol] 9.3 fL Normal 6.2-12.0 [facility] Comment on above: Performed By: #### L 100.0100, L500.2500 ####[facility] [address] [place], [address] Platelets (Bld) [#/Vol] 436 10*3/uL Normal 150-450 [facility] Comment on above: Performed By: #### L 100.0100, L500.2500 ####[facility] [address] [place], [address] RBC (Bld) [#/Vol] 3.41 10*6/uL Low 4.2-5.4 [facility] Comment on above: Performed By: #### L 100.0100, L500.2500 ####[facility] [address] [place], [address] RDW SD 47.5 fl High 35.1-43.9 [facility] Comment on above: Performed By: #### L 100.0100, L500.2500 ####[facility] [address] [place], [address] WBC (Bld) [#/Vol] 11.3 10*3/uL High 4.4-11.0 [facility] Comment on above: Performed By: #### L 100.0100, L500.2500 ####[facility] [address] [place], [address] Magnesiumon 07-23-2025 Magnesium [Mass/Vol] 2.3 mg/dL High 1.5-2.2 [facility] Comment on above: Performed By: #### L 501.5200 ####[facility] [address] [place], [address] Absolute lymphocyte countOrd ered By: Renee Alysha on 07-22-2025 Lymphocytes Auto (Unsp spec) [#/Vol] 1.00 10*3/uL 0.83-4.51 [facility] Anion gap in Serum or Plasma Ordered By: Renee Encarnacion on 07-22-2025 Anion gap [Moles/Vol] 14 mmol/L 5-15 [facility] Automated lymphocyte count a s percentage of total leukocytesOrdered By: Reneeteofilo Encarnacion on 07-22-2025 Lymphocytes/100 WBC Auto (Unsp spec) 8.4 % Low 19-41 [facility] BUN/creatinine ratioOrdered By: Renee Encarnacion on 07-22-2025 Urea nitrogen/Creatinine [Mass ratio] 39.5 mg/mg High 10-20 [facility] Basic Metabolic Profile (BMP )on 07-22-2025 BUN/CRE 39.5 RATIO High - [facility] Comment on above: Performed By: #### L 100.0100, L500.2500 ####[facility] [address] [place], [address] Calcium [Mass/Vol] 8.3 mg/dL Normal 7.6-11.0 [facility] Comment on above: Performed By: #### L 100.0100, L500.2500 ####[facility] [address] [place], [address] Chloride [Moles/Vol] 106 mmol/L Normal 98-108 [facility] Comment on above: Performed By: #### L 100.0100, L500.2500 ####[facility] [address] [place], [address] CO2 [Moles/Vol] 22.3 mmol/L Normal 21.0-32.0 [facility] Comment on above: Performed By: #### L 100.0100, L500.2500 ####[facility] [address] [place], [address] Creatinine [Mass/Vol] 0.76 mg/dL Normal 0.70-1.20 [facility] Comment on above: Performed By: #### L 100.0100, L500.2500 ####[facility] [address] [place], [address] ECRCL 52.85 ml/min Normal 50-250 [facility] Comment on above: Performed By: #### L 100.0100, L500.2500 ####[facility] [address] [place], [address] GAP 14 Normal 5-15 [facility] Comment on above: Performed By: #### L 100.0100, L500.2500 ####[facility] [address] [place], [address] GFR/1.73 sq M.predicted among non-blacks MDRD (S/P/Bld) [Vol rate/Area] 84 mL/min/{1.73_m2} Normal >60 [facility] Comment on above: Result Comment: mL/m in/1.73m2 CKD-EPI Creatinine Equation (2020) Performed By: #### L 100.0100, L500.2500 ####[facility] [address] [place], [address] Glucose [Mass/Vol] 160 mg/dL High 70-99 [facility] Comment on above: Performed By: #### L 100.0100, L500.2500 ####[facility] [address] [place], [address] Potassium [Moles/Vol] 3.2 mmol/L Low 3.3-5.1 [facility] Comment on above: Performed By: #### L 100.0100, L500.2500 ####[facility] [address] [place], [address] Sodium [Moles/Vol] 142 mmol/L Normal 133-145 [facility] Comment on above: Performed By: #### L 100.0100, L500.2500 ####[facility] [address] [place], [address] Urea nitrogen [Mass/Vol] 30 mg/dL High 4-19 [facility] Comment on above: Performed By: #### L 100.0100, L500.2500 ####[facility] [address] [place], [address] Basophil percentageOrdered B y: Renee Encarnacion on 07-22-2025 Basophils/100 WBC (Bld) 0.3 % 0-1 [facility] Bedside Glucoseon 07-22-2025 FINGERSTICK GLU 136 mg/dL High 74-106 [facility] Comment on above: Result Comment: CHERYL GEMENT OF PATIENT CARE PER NURSING PROTOCOL Performed By: #### L 501.080 ####[facility] [address] [place], [address] FINGERSTICK GLU 233 mg/dL High 74-106 [facility] Comment on above: Result Comment: CHERYL GEMENT OF PATIENT CARE PER NURSING PROTOCOL Performed By: #### L 501.080 ####[facility] [address] [place], [address] FINGERSTICK GLU 174 mg/dL High 74-106 [facility] Comment on above: Result Comment: CHERYL GEMENT OF PATIENT CARE PER NURSING PROTOCOL Performed By: #### L 501.080 ####[facility] [address] [place], [address] FINGERSTICK GLU 169 mg/dL High 74-106 [facility] Comment on above: Result Comment: CHERYL GEMENT OF PATIENT CARE PER NURSING PROTOCOL Performed By: #### L 501.080 ####[facility] [address] [place], [address] CBC W/Diff, Automatedon 09-3 0-2025 Absolute Lymph 1.00 X10 3/uL Normal 0.83-4.51 [facility] Comment on above: Performed By: #### L 100.0100, L500.2500 ####[facility] [address] [place], [address] Absolute Neut 10.0 X10 3/uL High 2.0-7.7 [facility] Comment on above: Performed By: #### L 100.0100, L500.2500 ####[facility] [address] [place], [address] Basophils/100 WBC (Bld) 0.3 % Normal 0-1 [facility] Comment on above: Performed By: #### L 100.0100, L500.2500 ####[facility] [address] [place], [address] Eosinophils/100 WBC (Bld) 0.0 % Normal 0-5 [facility] Comment on above: Performed By: #### L 100.0100, L500.2500 ####[facility] [address] [place], [address] Erythrocyte distribution width (RBC) [Ratio] 15.3 % High 11.6-14.6 [facility] Comment on above: Performed By: #### L 100.0100, L500.2500 ####[facility] [address] [place], [address] Hematocrit (Bld) [Volume fraction] 32.9 % Low 37-47 [facility] Comment on above: Performed By: #### L 100.0100, L500.2500 ####[facility] [address] [place], [address] Hemoglobin (Bld) [Mass/Vol] 10.7 g/dL Low 12.0-15.0 [facility] Comment on above: Performed By: #### L 100.0100, L500.2500 ####[facility] [address] [place], [address] IG% 2.500 High 0.0-0.9 [facility] Comment on above: Result Comment: IG% - Immature Granulocytes (promyelocytes, myelocytes andmetamyelocytes) > 1% indicates that a LEFT SHIFT is Present. Performed By: #### L 100.0100, L500.2500 ####[facility] [address] [place], [address] Lymphocytes/100 WBC (Bld) 8.4 % Low 19-41 [facility] Comment on above: Performed By: #### L 100.0100, L500.2500 ####[facility] [address] [place], [address] MCH (RBC) [Entitic mass] 28.8 pg Normal 27.0-32.0 [facility] Comment on above: Performed By: #### L 100.0100, L500.2500 ####[facility] [address] [place], [address] MCHC (RBC) [Mass/Vol] 32.5 g/dL Normal 32-36 [facility] Comment on above: Performed By: #### L 100.0100, L500.2500 ####[facility] [address] [place], [address] MCV (RBC) [Entitic vol] 88.7 fL Normal 81-99 [facility] Comment on above: Performed By: #### L 100.0100, L500.2500 ####[facility] [address] [place], [address] Monocytes/100 WBC (Bld) 4.1 % Normal 0-10 [facility] Comment on above: Performed By: #### L 100.0100, L500.2500 ####[facility] [address] [place], [address] Neutrophils/100 WBC (Bld) 84.7 % High 47-70 [facility] Comment on above: Performed By: #### L 100.0100, L500.2500 ####[facility] [address] [place], [address] Nucleated RBC (Bld) [#/Vol] 0 10*3/uL Normal 0-5 [facility] Comment on above: Performed By: #### L 100.0100, L500.2500 ####[facility] [address] [place], [address] Platelet mean volume (Bld) [Entitic vol] 9.5 fL Normal 6.2-12.0 [facility] Comment on above: Performed By: #### L 100.0100, L500.2500 ####[facility] [address] [place], [address] Platelets (Bld) [#/Vol] 452 10*3/uL High 150-450 [facility] Comment on above: Performed By: #### L 100.0100, L500.2500 ####[facility] [address] [place], [address] RBC (Bld) [#/Vol] 3.71 10*6/uL Low 4.2-5.4 [facility] Comment on above: Performed By: #### L 100.0100, L500.2500 ####[facility] [address] [place], [address] RDW SD 49.1 fl High 35.1-43.9 [facility] Comment on above: Performed By: #### L 100.0100, L500.2500 ####[facility] [address] [place], [address] WBC (Bld) [#/Vol] 11.8 10*3/uL High 4.4-11.0 [facility] Comment on above: Performed By: #### L 100.0100, L500.2500 ####[facility] [address] [place], [address] Carbon dioxide, total [Moles /volume] in Central venous bloodOrdered By: Renee Encarnacion on 07-22-2025 CO2 [Moles/Vol] 22.3 mmol/L 21.0-32.0 [facility] Chloride assayOrdered By: Na na Alsyha on 07-22-2025 Chloride [Moles/Vol] 106 mmol/L 98-108 [facility] Eosinophil percentageOrdered By: Renee Encarnacion on 07-22-2025 Eosinophils/100 WBC (Bld) 0.0 % 0-5 [facility] Erythrocyte distribution wid th ratioOrdered By: Reneeteofilo Encarnacion on 07-22-2025 Erythrocyte distribution width (RBC) [Ratio] 15.3 % High 11.6-14.6 [facility] Erythrocyte distribution wid th standard deviationOrdered By: Renee [facility] on 07-22-2025 Erythrocyte distribution width (RBC) [Ratio] 49.1 fl High 35.1-43.9 [facility] Glomerular filtration rate ( GFR) estimation/1.73 sq m using serum, plasma, or whole bOrdered By: Renee Encarnacion on 07-22-2025 GFR/1.73 sq M.predicted among non-blacks MDRD (S/P/Bld) [Vol rate/Area] 84 mL/min/{1.73_m2} >60 [facility] deOrdered By: Renee Encarnacion on 07-22-2025 Glucose [Mass/Vol] 136 mg/dL High 74-106 [facility] Hematocrit Auto (Bld) [Volum e fraction]Ordered By: Renee Encarnacion on 07-22-2025 Hematocrit (Bld) [Volume fraction] 32.9 % Low 37-47 [facility] Hemoglobin measurementOrdere d By: Renee Encarnacion on 07-22-2025 Hemoglobin (Bld) [Mass/Vol] 10.7 g/dL Low 12.0-15.0 [facility] Immature granulocytes/100 WB C Auto (Bld)Ordered By: Renee Encarnacion on 07-22-2025 Immature granulocytes/100 WBC (Bld) 2.500 % High 0.0-0.9 [facility] MCV (mean corpuscular volume ) determinationOrdered By: Renee Encarnacion on 07-22-2025 MCV (RBC) [Entitic vol] 88.7 fL 81-99 [facility] MR/CON.PCM.PAon 07-22-2025 MR/CON.PCM.PA Normal [facility] Mean corpuscular hemoglobin (MCH) determinationOrdered By: Renee Encarnacion on 07-22-2025 MCH (RBC) [Entitic mass] 28.8 pg 27.0-32.0 [facility] Modified Barium Swallow Stud yon 07-22-2025 Modified Barium Swallow Study Normal [facility] Monocyte percentageOrdered B y: Renee Encarnacion on 07-22-2025 Monocytes/100 WBC (Bld) 4.1 % 0-10 [facility] Neutrophil percentageOrdered By: Renee Encarnacion on 07-22-2025 Neutrophils/100 WBC (Bld) 84.7 % High 47-70 [facility] Platelet countOrdered By: Viki Encarnacion on 07-22-2025 Platelets (Bld) [#/Vol] 452 10*3/uL High 150-450 [facility] Potassium measurement (mass/ volume)Ordered By: Renee Encarnacion on 07-22-2025 Potassium (Unsp spec) [Mass/Vol] 3.2 mmol/L Low 3.3-5.1 [facility] RBC Auto (Bld) [#/Vol]Ordere d By: Renee Encarnacion on 07-22-2025 RBC (Bld) [#/Vol] 3.71 10*6/uL Low 4.2-5.4 [facility] Serum creatinine measurement (mass/volume)Ordered By: Renee Encarnacion on 07-22-2025 Creatinine [Mass/Vol] 0.76 mg/dL 0.70-1.20 [facility] Serum glucose measurement (m ass/volume)Ordered By: Renee Encarnacion on 07-22-2025 Glucose [Mass/Vol] 160 mg/dL High 70-99 [facility] Serum or plasma calcium erik urement (mass/volume)Ordered By: Renee Encarnacion on 07-22-2025 Calcium [Mass/Vol] 8.3 mg/dL 7.6-11.0 [facility] Serum or plasma urea nitroge n measurement (mass/volume)Ordered By: Renee Encarnacion on 07-22-2025 Urea nitrogen [Mass/Vol] 30 mg/dL High 4-19 [facility] Sodium levelOrdered By: Renee Encarnacion on 07-22-2025 Sodium [Moles/Vol] 142 mmol/L 133-145 [facility] White blood cell (WBC) count Ordered By: Renee Encarnacion on 07-22-2025 WBC (Bld) [#/Vol] 11.8 10*3/uL High 4.4-11.0 [facility] Basic Metabolic Profile (BMP )on 07-21-2025 BUN/CRE 47.6 RATIO High 10-20 [facility] Comment on above: Performed By: #### L 100.0100, L500.2500 ####[facility] [address] [place], [address] Calcium [Mass/Vol] 8.6 mg/dL Normal 7.6-11.0 [facility] Comment on above: Performed By: #### L 100.0100, L500.2500 ####[facility] [address] [place], [address] Chloride [Moles/Vol] 104 mmol/L Normal 98-108 [facility] Comment on above: Performed By: #### L 100.0100, L500.2500 ####[facility] [address] [place], [address] CO2 [Moles/Vol] 23.5 mmol/L Normal 21.0-32.0 [facility] Comment on above: Performed By: #### L 100.0100, L500.2500 ####[facility] [address] [place], [address] Creatinine [Mass/Vol] 0.83 mg/dL Normal 0.70-1.20 [facility] Comment on above: Performed By: #### L 100.0100, L500.2500 ####[facility] [address] [place], [address] ECRCL 50.05 ml/min Normal 50-250 [facility] Comment on above: Performed By: #### L 100.0100, L500.2500 ####[facility] [address] [place], [address] GAP 14 Normal 5-15 [facility] Comment on above: Performed By: #### L 100.0100, L500.2500 ####[facility] [address] [place], [address] GFR/1.73 sq M.predicted among non-blacks MDRD (S/P/Bld) [Vol rate/Area] 76 mL/min/{1.73_m2} Normal >60 [facility] Comment on above: Result Comment: mL/m in/1.73m2 CKD-EPI Creatinine Equation (2020) Performed By: #### L 100.0100, L500.2500 ####[facility] [address] [place], [address] Glucose [Mass/Vol] 167 mg/dL High 70-99 [facility] Comment on above: Performed By: #### L 100.0100, L500.2500 ####[facility] [address] [place], [address] Potassium [Moles/Vol] 3.9 mmol/L Normal 3.3-5.1 [facility] Comment on above: Performed By: #### L 100.0100, L500.2500 ####[facility] [address] [place], [address] Sodium [Moles/Vol] 141 mmol/L Normal 133-145 [facility] Comment on above: Performed By: #### L 100.0100, L500.2500 ####[facility] [address] [place], [address] Urea nitrogen [Mass/Vol] 39 mg/dL High 4-19 [facility] Comment on above: Performed By: #### L 100.0100, L500.2500 ####[facility] [address] [place], [address] Bedside Glucoseon 07-21-2025 FINGERSTICK GLU 82 mg/dL Normal 74-106 [facility] Comment on above: Result Comment: CHERYL GEMENT OF PATIENT CARE PER NURSING PROTOCOL Performed By: #### L 501.080 ####[facility] [address] [place], [address] FINGERSTICK GLU 52 mg/dL Low 74-106 [facility] Comment on above: Result Comment: Dr Geovanny pastrana FollowedInsulin GivenMANAGEMENT OF PATIENT CARE PER NURSING PROTOCOL Performed By: #### L 501.080 ####[facility] [address] [place], [address] FINGERSTICK GLU 202 mg/dL High 74-106 [facility] Comment on above: Result Comment: CHERYL GEMENT OF PATIENT CARE PER NURSING PROTOCOL Performed By: #### L 501.080 ####[facility] [address] [place], [address] FINGERSTICK GLU 49 mg/dL Low 74-106 [facility] Comment on above: Result Comment: CHERYL GEMENT OF PATIENT CARE PER NURSING PROTOCOL Performed By: #### L 501.080 ####[facility] [address] [place], [address] FINGERSTICK GLU 126 mg/dL High 74-106 [facility] Comment on above: Result Comment: CHERYL GEMENT OF PATIENT CARE PER NURSING PROTOCOL Performed By: #### L 501.080 ####[facility] [address] [place], [address] FINGERSTICK GLU 161 mg/dL High 74-106 [facility] Comment on above: Result Comment: CHERYL GEMENT OF PATIENT CARE PER NURSING PROTOCOL Performed By: #### L 501.080 ####[facility] [address] [place], [address] FINGERSTICK GLU 159 mg/dL High 74-106 [facility] Comment on above: Result Comment: CHERYL GEMENT OF PATIENT CARE PER NURSING PROTOCOL Performed By: #### L 501.080 ####[facility] [address] [place], [address] CBC W/Diff, Automatedon -2 Absolute Lymph 1.01 X10 3/uL Normal 0.83-4.51 [facility] Comment on above: Performed By: #### L 100.0100, L500.2500 ####[facility] [address] [place], [address] Absolute Neut 9.5 X10 3/uL High 2.0-7.7 [facility] Comment on above: Performed By: #### L 100.0100, L500.2500 ####[facility] [address] [place], [address] Basophils/100 WBC (Bld) 0.3 % Normal 0-1 [facility] Comment on above: Performed By: #### L 100.0100, L500.2500 ####[facility] [address] [place], [address] Eosinophils/100 WBC (Bld) 0.1 % Normal 0-5 [facility] Comment on above: Performed By: #### L 100.0100, L500.2500 ####[facility] [address] [place], [address] Erythrocyte distribution width (RBC) [Ratio] 15.3 % High 11.6-14.6 [facility] Comment on above: Performed By: #### L 100.0100, L500.2500 ####[facility] [address] [place], [address] Hematocrit (Bld) [Volume fraction] 32.5 % Low 37-47 [facility] Comment on above: Performed By: #### L 100.0100, L500.2500 ####[facility] [address] [place], [address] Hemoglobin (Bld) [Mass/Vol] 10.6 g/dL Low 12.0-15.0 [facility] Comment on above: Performed By: #### L 100.0100, L500.2500 ####[facility] [address] [place], [address] IG% 1.800 High 0.0-0.9 [facility] Comment on above: Result Comment: IG% - Immature Granulocytes (promyelocytes, myelocytes andmetamyelocytes) > 1% indicates that a LEFT SHIFT is Present. Performed By: #### L 100.0100, L500.2500 ####[facility] [address] [place], [address] Lymphocytes/100 WBC (Bld) 8.8 % Low 19-41 [facility] Comment on above: Performed By: #### L 100.0100, L500.2500 ####[facility] [address] [place], [address] MCH (RBC) [Entitic mass] 28.6 pg Normal 27.0-32.0 [facility] Comment on above: Performed By: #### L 100.0100, L500.2500 ####[facility] [address] [place], [address] MCHC (RBC) [Mass/Vol] 32.6 g/dL Normal 32-36 [facility] Comment on above: Performed By: #### L 100.0100, L500.2500 ####[facility] [address] [place], [address] MCV (RBC) [Entitic vol] 87.8 fL Normal 81-99 [facility] Comment on above: Performed By: #### L 100.0100, L500.2500 ####[facility] [address] [place], [address] Monocytes/100 WBC (Bld) 5.8 % Normal 0-10 [facility] Comment on above: Performed By: #### L 100.0100, L500.2500 ####[facility] [address] [place], [address] Neutrophils/100 WBC (Bld) 83.2 % High 47-70 [facility] Comment on above: Performed By: #### L 100.0100, L500.2500 ####[facility] [address] [place], [address] Nucleated RBC (Bld) [#/Vol] 0 10*3/uL Normal 0-5 [facility] Comment on above: Performed By: #### L 100.0100, L500.2500 ####[facility] [address] [place], [address] Platelet mean volume (Bld) [Entitic vol] 9.5 fL Normal 6.2-12.0 [facility] Comment on above: Performed By: #### L 100.0100, L500.2500 ####[facility] [address] [place], [address] Platelets (Bld) [#/Vol] 389 10*3/uL Normal 150-450 [facility] Comment on above: Performed By: #### L 100.0100, L500.2500 ####[facility] [address] [place], [address] RBC (Bld) [#/Vol] 3.70 10*6/uL Low 4.2-5.4 [facility] Comment on above: Performed By: #### L 100.0100, L500.2500 ####[facility] [address] [place], [address] RDW SD 48.8 fl High 35.1-43.9 [facility] Comment on above: Performed By: #### L 100.0100, L500.2500 ####[facility] [address] [place], [address] WBC (Bld) [#/Vol] 11.5 10*3/uL High 4.4-11.0 [facility] Comment on above: Performed By: #### L 100.0100, L500.2500 ####[facility] [address] [place], [address] Culture, Blood (WB)on 2024 CUB Blood cultures x2, from two different sites No growth in 5 days. Normal [facility] Comment on above: Performed By: #### M 200.1000 ####[facility] [address] [place], [address] Basic Metabolic Profile (BMP )on 07-20-2025 BUN/CRE 47.3 RATIO High 10-20 [facility] Comment on above: Performed By: #### L 100.0100, L500.2500 ####[facility] [address] [place], [address] Calcium [Mass/Vol] 8.2 mg/dL Normal 7.6-11.0 [facility] Comment on above: Performed By: #### L 100.0100, L500.2500 ####[facility] [address] [place], [address] Chloride [Moles/Vol] 105 mmol/L Normal 98-108 [facility] Comment on above: Performed By: #### L 100.0100, L500.2500 ####[facility] [address] [place], [address] CO2 [Moles/Vol] 22.2 mmol/L Normal 21.0-32.0 [facility] Comment on above: Performed By: #### L 100.0100, L500.2500 ####[facility] [address] [place], [address] Creatinine [Mass/Vol] 0.89 mg/dL Normal 0.70-1.20 [facility] Comment on above: Performed By: #### L 100.0100, L500.2500 ####[facility] [address] [place], [address] ECRCL 46.22 ml/min Low 50-250 [facility] Comment on above: Performed By: #### L 100.0100, L500.2500 ####[facility] [address] [place], [address] GAP 12 Normal 5-15 [facility] Comment on above: Performed By: #### L 100.0100, L500.2500 ####[facility] [address] [place], [address] GFR/1.73 sq M.predicted among non-blacks MDRD (S/P/Bld) [Vol rate/Area] 69 mL/min/{1.73_m2} Normal >60 [facility] Comment on above: Result Comment: mL/m in/1.73m2 CKD-EPI Creatinine Equation (2020) Performed By: #### L 100.0100, L500.2500 ####[facility] [address] [place], [address] Glucose [Mass/Vol] 194 mg/dL High 70-99 [facility] Comment on above: Performed By: #### L 100.0100, L500.2500 ####[facility] [address] [place], [address] Potassium [Moles/Vol] 4.4 mmol/L Normal 3.3-5.1 [facility] Comment on above: Performed By: #### L 100.0100, L500.2500 ####[facility] [address] [place], [address] Sodium [Moles/Vol] 139 mmol/L Normal 133-145 [facility] Comment on above: Performed By: #### L 100.0100, L500.2500 ####[facility] [address] [place], [address] Urea nitrogen [Mass/Vol] 42 mg/dL High 4-19 [facility] Comment on above: Performed By: #### L 100.0100, L500.2500 ####[facility] [address] [place], [address] Bedside Glucoseon 07-20-2025 FINGERSTICK GLU 179 mg/dL High 74-106 [facility] Comment on above: Result Comment: CHERYL GEMENT OF PATIENT CARE PER NURSING PROTOCOL Performed By: #### L 501.080 ####[facility] [address] [place], [address] FINGERSTICK GLU 170 mg/dL High 74-106 [facility] Comment on above: Result Comment: CHERYL GEMENT OF PATIENT CARE PER NURSING PROTOCOL Performed By: #### L 501.080 ####[facility] [address] [place], [address] FINGERSTICK GLU 176 mg/dL High 74-106 [facility] Comment on above: Result Comment: CHERYL GEMENT OF PATIENT CARE PER NURSING PROTOCOL Performed By: #### L 501.080 ####[facility] [address] [place], [address] CBC W/Diff, Automatedon 09-2 Absolute Lymph 0.59 X10 3/uL Low 0.83-4.51 [facility] Comment on above: Performed By: #### L 100.0100, L500.2500 ####[facility] [address] [place], [address] Absolute Neut 10.2 X10 3/uL High 2.0-7.7 [facility] Comment on above: Performed By: #### L 100.0100, L500.2500 ####[facility] [address] [place], [address] Basophils/100 WBC (Bld) 0.1 % Normal 0-1 [facility] Comment on above: Performed By: #### L 100.0100, L500.2500 ####[facility] [address] [place], [address] Eosinophils/100 WBC (Bld) 0.0 % Normal 0-5 [facility] Comment on above: Performed By: #### L 100.0100, L500.2500 ####[facility] [address] [place], [address] Erythrocyte distribution width (RBC) [Ratio] 15.4 % High 11.6-14.6 [facility] Comment on above: Performed By: #### L 100.0100, L500.2500 ####[facility] [address] [place], [address] Hematocrit (Bld) [Volume fraction] 33.0 % Low 37-47 [facility] Comment on above: Performed By: #### L 100.0100, L500.2500 ####[facility] [address] [place], [address] Hemoglobin (Bld) [Mass/Vol] 10.5 g/dL Low 12.0-15.0 [facility] Comment on above: Performed By: #### L 100.0100, L500.2500 ####[facility] [address] [place], [address] IG% 0.900 Normal 0.0-0.9 [facility] Comment on above: Result Comment: IG% - Immature Granulocytes (promyelocytes, myelocytes andmetamyelocytes) > 1% indicates that a LEFT SHIFT is Present. Performed By: #### L 100.0100, L500.2500 ####[facility] [address] [place], [address] Lymphocytes/100 WBC (Bld) 5.2 % Low 19-41 [facility] Comment on above: Performed By: #### L 100.0100, L500.2500 ####[facility] [address] [place], [address] MCH (RBC) [Entitic mass] 28.4 pg Normal 27.0-32.0 [facility] Comment on above: Performed By: #### L 100.0100, L500.2500 ####[facility] [address] [place], [address] MCHC (RBC) [Mass/Vol] 31.8 g/dL Low 32-36 [facility] Comment on above: Performed By: #### L 100.0100, L500.2500 ####[facility] [address] [place], [address] MCV (RBC) [Entitic vol] 89.2 fL Normal 81-99 [facility] Comment on above: Performed By: #### L 100.0100, L500.2500 ####[facility] [address] [place], [address] Monocytes/100 WBC (Bld) 4.5 % Normal 0-10 [facility] Comment on above: Performed By: #### L 100.0100, L500.2500 ####[facility] [address] [place], [address] Neutrophils/100 WBC (Bld) 89.3 % High 47-70 [facility] Comment on above: Performed By: #### L 100.0100, L500.2500 ####[facility] [address] [place], [address] Nucleated RBC (Bld) [#/Vol] 0 10*3/uL Normal 0-5 [facility] Comment on above: Performed By: #### L 100.0100, L500.2500 ####[facility] [address] [place], [address] Platelet mean volume (Bld) [Entitic vol] 9.6 fL Normal 6.2-12.0 [facility] Comment on above: Performed By: #### L 100.0100, L500.2500 ####[facility] [address] [place], [address] Platelets (Bld) [#/Vol] 385 10*3/uL Normal 150-450 [facility] Comment on above: Performed By: #### L 100.0100, L500.2500 ####[facility] [address] [place], [address] RBC (Bld) [#/Vol] 3.70 10*6/uL Low 4.2-5.4 [facility] Comment on above: Performed By: #### L 100.0100, L500.2500 ####[facility] [address] [place], [address] RDW SD 49.8 fl High 35.1-43.9 [facility] Comment on above: Performed By: #### L 100.0100, L500.2500 ####[facility] [address] [place], [address] WBC (Bld) [#/Vol] 11.4 10*3/uL High 4.4-11.0 [facility] Comment on above: Performed By: #### L 100.0100, L500.2500 ####[facility] [address] [place], [place], [address] Trough vancomycin levelOrder ed By: Eleazar Valle on 07-20-2025 Vancomycin trough [Mass/Vol] 13.3 ug/mL 5.0-15.0 [facility] Vancomycin, Trough Levelon 0 07-20-2025 VANCO, TROUGH 13.3 ug/mL Normal 5.0-15.0 [facility] Comment on above: Order Comment: Comme nts: Trough to be drawn 30 mins prior to scheduled [id number] Result Comment: Hank mmended goal trough ranges [...] therapy recommended for serious lifethreatening infections include:- Bkxauhucfs-Dzxvshvxyljz-Qwgkwdjla (Ventilator/Healtcare Associated)-SepsisPLEASE CONTACT PHARMACY SERVICES (#1363) FOR INTERPRETATIONOF RESULTS. Performed By: #### L 501.8820 ####[facility] [address] [place], [place], [address] Basic Metabolic Profile (BMP )on 07-19-2025 BUN/CRE 41.1 RATIO High 10-20 [facility] Comment on above: Performed By: #### L 500.2500, L100.0100 ####[facility] [address] [place], [address] Calcium [Mass/Vol] 7.4 mg/dL Low 7.6-11.0 [facility] Comment on above: Performed By: #### L 500.2500, L100.0100 ####[facility] [address] [place], [address] Chloride [Moles/Vol] 106 mmol/L Normal 98-108 [facility] Comment on above: Performed By: #### L 500.2500, L100.0100 ####[facility] [address] [place], [address] CO2 [Moles/Vol] 20.7 mmol/L Low 21.0-32.0 [facility] Comment on above: Performed By: #### L 500.2500, L100.0100 ####[facility] [address] [place], [address] Creatinine [Mass/Vol] 0.89 mg/dL Normal 0.70-1.20 [facility] Comment on above: Performed By: #### L 500.2500, L100.0100 ####[facility] [address] [place], [address] ECRCL 46.22 ml/min Low 50-250 [facility] Comment on above: Performed By: #### L 500.2500, L100.0100 ####[facility] [address] [place], [address] GAP 13 Normal 5-15 [facility] Comment on above: Performed By: #### L 500.2500, L100.0100 ####[facility] [address] [place], [address] GFR/1.73 sq M.predicted among non-blacks MDRD (S/P/Bld) [Vol rate/Area] 69 mL/min/{1.73_m2} Normal >60 [facility] Comment on above: Result Comment: mL/m in/1.73m2 CKD-EPI Creatinine Equation (2020) Performed By: #### L 500.2500, L100.0100 ####[facility] [address] [place], [address] Glucose [Mass/Vol] 199 mg/dL High 70-99 [facility] Comment on above: Performed By: #### L 500.2500, L100.0100 ####[facility] [address] [place], [address] Potassium [Moles/Vol] 3.0 mmol/L Low 3.3-5.1 [facility] Comment on above: Result Comment: Hemo lysis present, Results??could be affected.?? Performed By: #### L 500.2500, L100.0100 ####[facility] [address] [place], [address] Sodium [Moles/Vol] 140 mmol/L Normal 133-145 [facility] Comment on above: Performed By: #### L 500.2500, L100.0100 ####[facility] [address] [place], [address] Urea nitrogen [Mass/Vol] 37 mg/dL High 4-19 [facility] Comment on above: Performed By: #### L 500.2500, L100.0100 ####[facility] [address] [place], [address] Bedside Glucoseon 07-19-2025 FINGERSTICK GLU 163 mg/dL High 74-106 [facility] Comment on above: Result Comment: CHERYL GEMENT OF PATIENT CARE PER NURSING PROTOCOL Performed By: #### L 501.080 ####[facility] [address] [place], [address] FINGERSTICK GLU 166 mg/dL High 74-106 [facility] Comment on above: Result Comment: CHERYL GEMENT OF PATIENT CARE PER NURSING PROTOCOL Performed By: #### L 501.080 ####[facility] [address] [place], [address] FINGERSTICK GLU 125 mg/dL High 74-106 [facility] Comment on above: Result Comment: CHERYL GEMENT OF PATIENT CARE PER NURSING PROTOCOL Performed By: #### L 501.080 ####[facility] [address] [place], [address] FINGERSTICK GLU 192 mg/dL High 74-106 [facility] Comment on above: Result Comment: CHERYL GEMENT OF PATIENT CARE PER NURSING PROTOCOL Performed By: #### L 501.080 ####[facility] [address] [place], [address] FINGERSTICK GLU 190 mg/dL High 74-106 [facility] Comment on above: Result Comment: CHERYL GEMENT OF PATIENT CARE PER NURSING PROTOCOL Performed By: #### L 501.080 ####[facility] [address] [place], [address] [facility] 025 Base excess Calc (Bld) [Moles/Vol] 3 mmol/L High -2 to +2 [facility] Comment on above: Performed By: #### L 9000.0800 ####[facility] [address] [place], [address] Blood Gas Type ART Normal [facility] Comment on above: Performed By: #### L 9000.0800 ####[facility] [address] [place], [address] CO2 [Moles/Vol] 28 mmol/L Normal [facility] Comment on above: Performed By: #### L 9000.0800 ####[facility] [address] [place], [address] FI02 30.0 Normal [facility] Comment on above: Performed By: #### L 9000.0800 ####[facility] [address] [place], [address] HCO3 (Bld) [Moles/Vol] 27.0 mmol/L High 22-26 [facility] Comment on above: Performed By: #### L 9000.0800 ####[facility] [address] [place], [address] Mode AC Normal [facility] Comment on above: Performed By: #### L 9000.0800 ####[facility] [address] [place], [address] O2 Delivery Dev Adult Vent Normal [facility] Comment on above: Performed By: #### L 9000.0800 ####[facility] [address] [place], [address] pCO2 36.7 mmHg Normal 35-45 [facility] Comment on above: Performed By: #### L 9000.0800 ####[facility] [address] [place], [address] PEEP 5 Normal [facility] Comment on above: Performed By: #### L 9000.0800 ####[facility] [address] [place], [address] pH (Bld) 7.48 [pH] High 7.35-7.45 [facility] Comment on above: Performed By: #### L 9000.0800 ####[facility] [address] [place], [address] PO2 53 mmHG Low 75-100 [facility] Comment on above: Performed By: #### L 9000.0800 ####[facility] [address] [place], [address] RR 20 Normal [facility] Comment on above: Performed By: #### L 9000.0800 ####[facility] [address] [place], [address] SITE R Brach Normal [facility] Comment on above: Performed By: #### L 9000.0800 ####[facility] [address] [place], [address] SO2 89 Low 95-99 [facility] Comment on above: Performed By: #### L 9000.0800 ####[facility] [address] [place], [address] Vt 400.0 mL Normal [facility] Comment on above: Performed By: #### L 9000.0800 ####[facility] [address] [place], [address] Blood base excess determinat ionOrdered By: Gerard Santos on 07-19-2025 Base excess Calc (BldV) [Moles/Vol] 3 mmol/L High -2-2 [facility] Blood bicarbonate measuremen tOrdered By: Gerard Santos on 07-19-2025 HCO3 (Bld) [Moles/Vol] 27.0 mmol/L High 22-26 [facility] CBC W/Diff, Automatedon 06-24 Absolute Lymph 0.40 X10 3/uL Low 0.83-4.51 [facility] Comment on above: Performed By: #### L 500.2500, L100.0100 ####[facility] [address] [place], [address] Absolute Neut 7.7 X10 3/uL Normal 2.0-7.7 [facility] Comment on above: Performed By: #### L 500.2500, L100.0100 ####[facility] [address] [place], [address] Basophils/100 WBC (Bld) 0.1 % Normal 0-1 [facility] Comment on above: Performed By: #### L 500.2500, L100.0100 ####[facility] [address] [place], [address] Eosinophils/100 WBC (Bld) 0.1 % Normal 0-5 [facility] Comment on above: Performed By: #### L 500.2500, L100.0100 ####[facility] [address] [place], [address] Erythrocyte distribution width (RBC) [Ratio] 15.3 % High 11.6-14.6 [facility] Comment on above: Performed By: #### L 500.2500, L100.0100 ####[facility] [address] [place], [address] Hematocrit (Bld) [Volume fraction] 31.3 % Low 37-47 [facility] Comment on above: Performed By: #### L 500.2500, L100.0100 ####[facility] [address] [place], [address] Hemoglobin (Bld) [Mass/Vol] 10.2 g/dL Low 12.0-15.0 [facility] Comment on above: Performed By: #### L 500.2500, L100.0100 ####[facility] [address] [place], [address] IG% 0.700 Normal 0.0-0.9 [facility] Comment on above: Result Comment: IG% - Immature Granulocytes (promyelocytes, myelocytes andmetamyelocytes) > 1% indicates that a LEFT SHIFT is Present. Performed By: #### L 500.2500, L100.0100 ####[facility] [address] [place], [address] Lymphocytes/100 WBC (Bld) 4.7 % Low 19-41 [facility] Comment on above: Performed By: #### L 500.2500, L100.0100 ####[facility] [address] [place], [address] MCH (RBC) [Entitic mass] 28.8 pg Normal 27.0-32.0 [facility] Comment on above: Performed By: #### L 500.2500, L100.0100 ####[facility] [address] [place], [address] MCHC (RBC) [Mass/Vol] 32.6 g/dL Normal 32-36 [facility] Comment on above: Performed By: #### L 500.2500, L100.0100 ####[facility] [address] [place], [address] MCV (RBC) [Entitic vol] 88.4 fL Normal 81-99 [facility] Comment on above: Performed By: #### L 500.2500, L100.0100 ####[facility] [address] [place], [address] Monocytes/100 WBC (Bld) 4.3 % Normal 0-10 [facility] Comment on above: Performed By: #### L 500.2500, L100.0100 ####[facility] [address] [place], [address] Neutrophils/100 WBC (Bld) 90.1 % High 47-70 [facility] Comment on above: Performed By: #### L 500.2500, L100.0100 ####[facility] [address] [place], [address] Nucleated RBC (Bld) [#/Vol] 0 10*3/uL Normal 0-5 [facility] Comment on above: Performed By: #### L 500.2500, L100.0100 ####[facility] [address] [place], [address] Platelet mean volume (Bld) [Entitic vol] 9.5 fL Normal 6.2-12.0 [facility] Comment on above: Performed By: #### L 500.2500, L100.0100 ####[facility] [address] [place], [address] Platelets (Bld) [#/Vol] 348 10*3/uL Normal 150-450 [facility] Comment on above: Performed By: #### L 500.2500, L100.0100 ####[facility] [address] [place], [address] RBC (Bld) [#/Vol] 3.54 10*6/uL Low 4.2-5.4 [facility] Comment on above: Performed By: #### L 500.2500, L100.0100 ####[facility] [address] [place], [address] RDW SD 49.1 fl High 35.1-43.9 [facility] Comment on above: Performed By: #### L 500.2500, L100.0100 ####[facility] [address] [place], [address] WBC (Bld) [#/Vol] 8.5 10*3/uL Normal 4.4-11.0 [facility] Comment on above: Performed By: #### L 500.2500, L100.0100 ####[facility] [address] [place], [address] Chest 1 View (Portable)on Chest 1 View (Portable) Normal [facility] Hepatitis Panel Acuteon 06-24 COMMENT Comment Normal . [facility] Comment on above: Result Comment: Not infected with HCV unless early or acute infection issuspected (which may be delayed in an immunocompromisedindividual), or other evidence exists to indicate HCVinfection.Performed at: - [facility] [id number] Director: Jonathan Lopez PhD, Phone: [phone] Performed By: #### L 3000.0375 ####[facility] [address] [place], [address] HEP B CORE,IgM Negative Normal Negative [facility] Comment on above: Performed By: #### L 3000.0375 ####[facility] [address] [place], [address] HEP B SURF AG Negative Normal Negative [facility] Comment on above: Performed By: #### L 3000.0375 ####[facility] [address] [place], [address] HEP C VIRUS AB Non-Reactive Normal Non Reactive [facility] Comment on above: Performed By: #### L 3000.0375 ####[facility] [address] [place], [place], [id number] HEPATITIS A-IgM Negative Normal Negative [facility] Comment on above: Result Comment: A ne gative anti-HAV IgM result suggests no recent orcurrent HAV infection. Performed By: #### L 3000.0375 ####[facility] [address] [place], [place], [address] Measurement, pHOrdered By: Alphonso Santos on 07-19-2025 pH (Unsp spec) 7.48 [pH] High 7.35-7.45 [facility] No Panel InformationOrdered By: Gerard Santos on 07-19-2025 ART [facility] R Brach [facility] AC [facility] Adult Vent [facility] 400.0 mL [facility] 20 [facility] 5 [facility] Total carbon dioxide measure mentOrdered By: Gerard Santos on 07-19-2025 CO2 [Moles/Vol] 28 mmol/L [facility] Basic Metabolic Profile (BMP )on 07-18-2025 BUN/CRE 32.4 RATIO High 10-20 [facility] Comment on above: Performed By: #### L 500.2500, L501.2300, L100.0100, L501.5200 ####[facility] [address] [place], [place], [address] Calcium [Mass/Vol] 8.4 mg/dL Normal 7.6-11.0 [facility] Comment on above: Performed By: #### L 500.2500, L501.2300, L100.0100, L501.5200 ####[facility] [address] [place], [address] Chloride [Moles/Vol] 103 mmol/L Normal 98-108 [facility] Comment on above: Performed By: #### L 500.2500, L501.2300, L100.0100, L501.5200 ####[facility] [address] [place], [address] CO2 [Moles/Vol] 23.0 mmol/L Normal 21.0-32.0 [facility] Comment on above: Performed By: #### L 500.2500, L501.2300, L100.0100, L501.5200 ####[facility] [address] [place], [address] Creatinine [Mass/Vol] 1.04 mg/dL Normal 0.70-1.20 [facility] Comment on above: Performed By: #### L 500.2500, L501.2300, L100.0100, L501.5200 ####[facility] [address] [place], [address] ECRCL 39.32 ml/min Low 50-250 [facility] Comment on above: Performed By: #### L 500.2500, L501.2300, L100.0100, L501.5200 ####[facility] [address] [place], [address] GAP 13 Normal 5-15 [facility] Comment on above: Performed By: #### L 500.2500, L501.2300, L100.0100, L501.5200 ####[facility] [address] [place], [address] GFR/1.73 sq M.predicted among non-blacks MDRD (S/P/Bld) [Vol rate/Area] 57 mL/min/{1.73_m2} Low >60 [facility] Comment on above: Result Comment: mL/m in/1.73m2 CKD-EPI Creatinine Equation (2020) Performed By: #### L 500.2500, L501.2300, L100.0100, L501.5200 ####[facility] [address] [place], [address] Glucose [Mass/Vol] 181 mg/dL High 70-99 [facility] Comment on above: Performed By: #### L 500.2500, L501.2300, L100.0100, L501.5200 ####[facility] [address] [place], [address] Potassium [Moles/Vol] 3.6 mmol/L Normal 3.3-5.1 [facility] Comment on above: Performed By: #### L 500.2500, L501.2300, L100.0100, L501.5200 ####[facility] [address] [place], [address] Sodium [Moles/Vol] 139 mmol/L Normal 133-145 [facility] Comment on above: Performed By: #### L 500.2500, L501.2300, L100.0100, L501.5200 ####[facility] [address] [place], [address] Urea nitrogen [Mass/Vol] 34 mg/dL High 4-19 [facility] Comment on above: Performed By: #### L 500.2500, L501.2300, L100.0100, L501.5200 ####[facility] [address] [place], [address] Bedside Glucoseon 07-18-2025 FINGERSTICK GLU 187 mg/dL High 74-106 [facility] Comment on above: Result Comment: CHERYL GEMENT OF PATIENT CARE PER NURSING PROTOCOL Performed By: #### L 501.080 ####[facility] [address] [place], [address] FINGERSTICK GLU 192 mg/dL High 74-106 [facility] Comment on above: Result Comment: CHERYL GEMENT OF PATIENT CARE PER NURSING PROTOCOL Performed By: #### L 501.080 ####[facility] [address] [place], [address] FINGERSTICK GLU 174 mg/dL High 74-106 [facility] Comment on above: Result Comment: CHERYL WILLS OF PATIENT CARE PER NURSING PROTOCOL Performed By: #### L 501.080 ####[facility] [address] [place], [address] CBC W/Diff, Automatedon 2 Absolute Lymph 0.59 X10 3/uL Low 0.83-4.51 [facility] Comment on above: Performed By: #### L 500.2500, L501.2300, L100.0100, L501.5200 ####[facility] [address] [place], [address] Absolute Neut 8.8 X10 3/uL High 2.0-7.7 [facility] Comment on above: Performed By: #### L 500.2500, L501.2300, L100.0100, L501.5200 ####[facility] [address] [place], [address] Basophils/100 WBC (Bld) 0.1 % Normal 0-1 [facility] Comment on above: Performed By: #### L 500.2500, L501.2300, L100.0100, L501.5200 ####[facility] [address] [place], [address] Eosinophils/100 WBC (Bld) 0.0 % Normal 0-5 [facility] Comment on above: Performed By: #### L 500.2500, L501.2300, L100.0100, L501.5200 ####[facility] [address] [place], [address] Erythrocyte distribution width (RBC) [Ratio] 15.3 % High 11.6-14.6 [facility] Comment on above: Performed By: #### L 500.2500, L501.2300, L100.0100, L501.5200 ####[facility] [address] [place], [address] Hematocrit (Bld) [Volume fraction] 32.7 % Low 37-47 [facility] Comment on above: Performed By: #### L 500.2500, L501.2300, L100.0100, L501.5200 ####[facility] [address] [place], [address] Hemoglobin (Bld) [Mass/Vol] 11.2 g/dL Low 12.0-15.0 [facility] Comment on above: Performed By: #### L 500.2500, L501.2300, L100.0100, L501.5200 ####[facility] [address] [place], [address] IG% 0.800 Normal 0.0-0.9 [facility] Comment on above: Result Comment: IG% - Immature Granulocytes (promyelocytes, myelocytes andmetamyelocytes) > 1% indicates that a LEFT SHIFT is Present. Performed By: #### L 500.2500, L501.2300, L100.0100, L501.5200 ####[facility] [address] [place], [address] Lymphocytes/100 WBC (Bld) 5.9 % Low 19-41 [facility] Comment on above: Performed By: #### L 500.2500, L501.2300, L100.0100, L501.5200 ####[facility] [address] [place], [address] MCH (RBC) [Entitic mass] 29.8 pg Normal 27.0-32.0 [facility] Comment on above: Performed By: #### L 500.2500, L501.2300, L100.0100, L501.5200 ####[facility] [address] [place], [address] MCHC (RBC) [Mass/Vol] 34.3 g/dL Normal 32-36 [facility] Comment on above: Performed By: #### L 500.2500, L501.2300, L100.0100, L501.5200 ####[facility] [address] [place], [address] MCV (RBC) [Entitic vol] 87.0 fL Normal 81-99 [facility] Comment on above: Performed By: #### L 500.2500, L501.2300, L100.0100, L501.5200 ####[facility] [address] [place], [address] Monocytes/100 WBC (Bld) 4.7 % Normal 0-10 [facility] Comment on above: Performed By: #### L 500.2500, L501.2300, L100.0100, L501.5200 ####[facility] [address] [place], [address] Neutrophils/100 WBC (Bld) 88.5 % High 47-70 [facility] Comment on above: Performed By: #### L 500.2500, L501.2300, L100.0100, L501.5200 ####[facility] [address] [place], [address] Nucleated RBC (Bld) [#/Vol] 0 10*3/uL Normal 0-5 [facility] Comment on above: Performed By: #### L 500.2500, L501.2300, L100.0100, L501.5200 ####[facility] [address] [place], [address] Platelet mean volume (Bld) [Entitic vol] 9.4 fL Normal 6.2-12.0 [facility] Comment on above: Performed By: #### L 500.2500, L501.2300, L100.0100, L501.5200 ####[facility] [address] [place], [address] Platelets (Bld) [#/Vol] 365 10*3/uL Normal 150-450 [facility] Comment on above: Performed By: #### L 500.2500, L501.2300, L100.0100, L501.5200 ####[facility] [address] [place], [address] RBC (Bld) [#/Vol] 3.76 10*6/uL Low 4.2-5.4 [facility] Comment on above: Performed By: #### L 500.2500, L501.2300, L100.0100, L501.5200 ####[facility] [address] [place], [address] RDW SD 48.1 fl High 35.1-43.9 [facility] Comment on above: Performed By: #### L 500.2500, L501.2300, L100.0100, L501.5200 ####[facility] [address] [place], [address] WBC (Bld) [#/Vol] 9.9 10*3/uL Normal 4.4-11.0 [facility] Comment on above: Performed By: #### L 500.2500, L501.2300, L100.0100, L501.5200 ####[facility] [address] [place], [address] Magnesiumon 07-18-2025 Magnesium [Mass/Vol] 2.4 mg/dL High 1.5-2.2 [facility] Comment on above: Performed By: #### L 500.2500, L501.2300, L100.0100, L501.5200 ####[facility] [address] [place], [address] Magnesium measurement (mass/ volume)Ordered By: Eleazar Valle on 07-18-2025 Magnesium (Unsp spec) [Mass/Vol] 2.4 mg/dL High 1.5-2.2 [facility] No Panel InformationOrdered By: Jack Haile on 07-18-2025 Comment . [facility] Phosphoruson 07-18-2025 Phosphate [Mass/Vol] 3.6 mg/dL Normal 2.7-4.5 [facility] Comment on above: Performed By: #### L 500.2500, L501.2300, L100.0100, L501.5200 ####[facility] [address] [place], [address] Respiratory Cultureon 2024 RESPC Mixed normal respiratory renu. No Streptococcus pneumoniae, beta-hemolytic Streptococcus or Staphylococcus aureus isolated. Normal [facility] Comment on above: Performed By: #### M 100.2400, M100.2000, M100.678, M100.2200 ####[facility] [address] [place], [address] Serum or plasma hepatitis B virus surface antigen detection by immunoassayOrdered By: Jack Haile on 07-18-2025 HBV surface Ag IA Ql Negative Negative [facility] Vancomycin, Trough Levelon 0 07-18-2025 VANCO, TROUGH 7.7 ug/mL Normal 5.0-15.0 [facility] Comment on above: Order Comment: Comme nts: Trough to be drawn 30 mins prior to scheduled [id number] Result Comment: Hank mmended goal trough ranges [...] therapy recommended for serious lifethreatening infections include:- Gcewnrxfuj-Lqkbkdbbjiix-Wdvdydsri (Ventilator/Healtcare Associated)-SepsisPLEASE CONTACT PHARMACY SERVICES (#0646) FOR INTERPRETATIONOF RESULTS. Performed By: #### L 501.8820 ####[facility] [address] [place], [address] Basic Metabolic Profile (BMP )on 07-17-2025 BUN/CRE 22.6 RATIO High 10-20 [facility] Comment on above: Performed By: #### L 500.2500, L100.0100 ####[facility] [address] [place], [address] Calcium [Mass/Vol] 8.1 mg/dL Normal 7.6-11.0 [facility] Comment on above: Performed By: #### L 500.2500, L100.0100 ####[facility] [address] [place], [address] Chloride [Moles/Vol] 102 mmol/L Normal 98-108 [facility] Comment on above: Performed By: #### L 500.2500, L100.0100 ####[facility] [address] [place], [address] CO2 [Moles/Vol] 22.9 mmol/L Normal 21.0-32.0 [facility] Comment on above: Performed By: #### L 500.2500, L100.0100 ####[facility] [address] [place], [address] Creatinine [Mass/Vol] 1.30 mg/dL High 0.70-1.20 [facility] Comment on above: Performed By: #### L 500.2500, L100.0100 ####[facility] [address] [place], [address] ECRCL 29.63 ml/min Low 50-250 [facility] Comment on above: Performed By: #### L 500.2500, L100.0100 ####[facility] [address] [place], [address] GAP 15 Normal 5-15 [facility] Comment on above: Performed By: #### L 500.2500, L100.0100 ####[facility] [address] [place], [address] GFR/1.73 sq M.predicted among non-blacks MDRD (S/P/Bld) [Vol rate/Area] 44 mL/min/{1.73_m2} Low >60 [facility] Comment on above: Result Comment: mL/m in/1.73m2 CKD-EPI Creatinine Equation (2020) Performed By: #### L 500.2500, L100.0100 ####[facility] [address] [place], [address] Glucose [Mass/Vol] 149 mg/dL High 70-99 [facility] Comment on above: Performed By: #### L 500.2500, L100.0100 ####[facility] [address] [place], [address] Potassium [Moles/Vol] 3.0 mmol/L Low 3.3-5.1 [facility] Comment on above: Performed By: #### L 500.2500, L100.0100 ####[facility] [address] [place], [address] Sodium [Moles/Vol] 140 mmol/L Normal 133-145 [facility] Comment on above: Performed By: #### L 500.2500, L100.0100 ####[facility] [address] [place], [address] Urea nitrogen [Mass/Vol] 29 mg/dL High 4-19 [facility] Comment on above: Performed By: #### L 500.2500, L100.0100 ####[facility] [address] [place], [address] BUN Normal 4-19 [facility] Comment on above: Result Comment: DUPL ICATE Performed By: #### L 100.0100, L500.2500 ####[facility] [address] [place], [address] BUN/CRE Normal 10-20 [facility] Comment on above: Result Comment: DUPL ICATE Performed By: #### L 100.0100, L500.2500 ####[facility] [address] [place], [address] Calcium Normal 7.6-11.0 [facility] Comment on above: Result Comment: DUPL ICATE Performed By: #### L 100.0100, L500.2500 ####[facility] [address] [place], [address] CL Normal 98-108 [facility] Comment on above: Result Comment: DUPL ICATE Performed By: #### L 100.0100, L500.2500 ####[facility] [address] [place], [address] CO2 Normal 21.0-32.0 [facility] Comment on above: Result Comment: DUPL ICATE Performed By: #### L 100.0100, L500.2500 ####[facility] [address] [place], [address] CREAT,SERUM Normal 0.70-1.20 [facility] Comment on above: Result Comment: DUPL ICATE Performed By: #### L 100.0100, L500.2500 ####[facility] [address] [place], [address] eGFR Normal >60 [facility] Comment on above: Result Comment: DUPL ICATE Performed By: #### L 100.0100, L500.2500 ####[facility] [address] [place], [address] GAP Normal 5-15 [facility] Comment on above: Result Comment: DUPL ICATE Performed By: #### L 100.0100, L500.2500 ####[facility] [address] [place], [address] GLU Normal 70-99 [facility] Comment on above: Result Comment: DUPL ICATE Performed By: #### L 100.0100, L500.2500 ####[facility] [address] [place], [address] Potassium Normal 3.3-5.1 [facility] Comment on above: Result Comment: DUPL ICATE Performed By: #### L 100.0100, L500.2500 ####[facility] [address] [place], [address] Basic Metabolic Profile (BMP) Normal 133-145 [facility] Comment on above: Result Comment: DUPL ICATE Performed By: #### L 100.0100, L500.2500 ####[facility] [address] [place], [address] Bedside Glucoseon 07-17-2025 FINGERSTICK GLU 185 mg/dL High 74-106 [facility] Comment on above: Result Comment: CHERYL GEMENT OF PATIENT CARE PER NURSING PROTOCOL Performed By: #### L 501.080 ####[facility] [address] [place], [address] FINGERSTICK GLU 157 mg/dL High 74-106 [facility] Comment on above: Result Comment: CHERYL GEMENT OF PATIENT CARE PER NURSING PROTOCOL Performed By: #### L 501.080 ####[facility] [address] [place], [address] FINGERSTICK GLU 165 mg/dL High 74-106 [facility] Comment on above: Result Comment: Dr Geovanny pastrana FollowedInsulin GivenMANAGEMENT OF PATIENT CARE PER NURSING PROTOCOL Performed By: #### L 501.080 ####[facility] [address] [place], [address] FINGERSTICK GLU 156 mg/dL High 74-106 [facility] Comment on above: Result Comment: CHERYL GEMENT OF PATIENT CARE PER NURSING PROTOCOL Performed By: #### L 501.080 ####[facility] [address] [place], [address] FINGERSTICK GLU 153 mg/dL High 74-106 [facility] Comment on above: Result Comment: CHERYL GEMENT OF PATIENT CARE PER NURSING PROTOCOL Performed By: #### L 501.080 ####[facility] [address] [place], [address] CBC W/Diff, Automatedon 06-24-2024 Absolute Lymph 0.76 X10 3/uL Low 0.83-4.51 [facility] Comment on above: Performed By: #### L 500.2500, L100.0100 ####[facility] [address] [place], [address] Absolute Neut 7.0 X10 3/uL Normal 2.0-7.7 [facility] Comment on above: Performed By: #### L 500.2500, L100.0100 ####[facility] [address] [place], [address] Basophils/100 WBC (Bld) 0.1 % Normal 0-1 [facility] Comment on above: Performed By: #### L 500.2500, L100.0100 ####[facility] [address] [place], [address] Eosinophils/100 WBC (Bld) 0.0 % Normal 0-5 [facility] Comment on above: Performed By: #### L 500.2500, L100.0100 ####[facility] [address] [place], [address] Erythrocyte distribution width (RBC) [Ratio] 15.1 % High 11.6-14.6 [facility] Comment on above: Performed By: #### L 500.2500, L100.0100 ####[facility] [address] [place], [address] Hematocrit (Bld) [Volume fraction] 29.1 % Low 37-47 [facility] Comment on above: Performed By: #### L 500.2500, L100.0100 ####[facility] [address] [place], [address] Hemoglobin (Bld) [Mass/Vol] 9.8 g/dL Low 12.0-15.0 [facility] Comment on above: Performed By: #### L 500.2500, L100.0100 ####[facility] [address] [place], [address] IG% 0.400 Normal 0.0-0.9 [facility] Comment on above: Result Comment: IG% - Immature Granulocytes (promyelocytes, myelocytes andmetamyelocytes) > 1% indicates that a LEFT SHIFT is Present. Performed By: #### L 500.2500, L100.0100 ####[facility] [address] [place], [address] Lymphocytes/100 WBC (Bld) 9.1 % Low 19-41 [facility] Comment on above: Performed By: #### L 500.2500, L100.0100 ####[facility] [address] [place], [address] MCH (RBC) [Entitic mass] 29.3 pg Normal 27.0-32.0 [facility] Comment on above: Performed By: #### L 500.2500, L100.0100 ####[facility] [address] [place], [address] MCHC (RBC) [Mass/Vol] 33.7 g/dL Normal 32-36 [facility] Comment on above: Performed By: #### L 500.2500, L100.0100 ####[facility] [address] [place], [address] MCV (RBC) [Entitic vol] 87.1 fL Normal 81-99 [facility] Comment on above: Performed By: #### L 500.2500, L100.0100 ####[facility] [address] [place], [address] Monocytes/100 WBC (Bld) 6.3 % Normal 0-10 [facility] Comment on above: Performed By: #### L 500.2500, L100.0100 ####[facility] [address] [place], [address] Neutrophils/100 WBC (Bld) 84.1 % High 47-70 [facility] Comment on above: Performed By: #### L 500.2500, L100.0100 ####[facility] [address] [place], [address] Nucleated RBC (Bld) [#/Vol] 0 10*3/uL Normal 0-5 [facility] Comment on above: Performed By: #### L 500.2500, L100.0100 ####[facility] [address] [place], [address] Platelet mean volume (Bld) [Entitic vol] 9.7 fL Normal 6.2-12.0 [facility] Comment on above: Performed By: #### L 500.2500, L100.0100 ####[facility] [address] [place], [address] Platelets (Bld) [#/Vol] 352 10*3/uL Normal 150-450 [facility] Comment on above: Performed By: #### L 500.2500, L100.0100 ####[facility] [address] [place], [address] RBC (Bld) [#/Vol] 3.34 10*6/uL Low 4.2-5.4 [facility] Comment on above: Performed By: #### L 500.2500, L100.0100 ####[facility] [address] [place], [address] RDW SD 47.9 fl High 35.1-43.9 [facility] Comment on above: Performed By: #### L 500.2500, L100.0100 ####[facility] [address] [place], [address] WBC (Bld) [#/Vol] 8.4 10*3/uL Normal 4.4-11.0 [facility] Comment on above: Performed By: #### L 500.2500, L100.0100 ####[facility] [address] [place], [address] Absolute Neut Normal 2.0-7.7 [facility] Comment on above: Result Comment: DUPL ICATE Performed By: #### L 100.0100, L500.2500 ####[facility] [address] [place], [address] HCT Normal 37-47 [facility] Comment on above: Result Comment: DUPL ICATE Performed By: #### L 100.0100, L500.2500 ####[facility] [address] [place], [address] HGB Normal 12.0-15.0 [facility] Comment on above: Result Comment: DUPL ICATE Performed By: #### L 100.0100, L500.2500 ####[facility] [address] [place], [address] MCH Normal 27.0-32.0 [facility] Comment on above: Result Comment: DUPL ICATE Performed By: #### L 100.0100, L500.2500 ####[facility] [address] [place], [address] MCHC Normal 32-36 [facility] Comment on above: Result Comment: DUPL ICATE Performed By: #### L 100.0100, L500.2500 ####[facility] [address] [place], [address] MCV Normal 81-99 [facility] Comment on above: Result Comment: DUPL ICATE Performed By: #### L 100.0100, L500.2500 ####[facility] [address] [place], [address] NEUT% Normal 47-70 [facility] Comment on above: Result Comment: DUPL ICATE Performed By: #### L 100.0100, L500.2500 ####[facility] [address] [place], [address] PLT Normal 150-450 [facility] Comment on above: Result Comment: DUPL ICATE Performed By: #### L 100.0100, L500.2500 ####[facility] [address] [place], [address] RBC Normal 4.2-5.4 [facility] Comment on above: Result Comment: DUPL ICATE Performed By: #### L 100.0100, L500.2500 ####[facility] [address] [place], [address] RDW CV Normal 11.6-14.6 [facility] Comment on above: Result Comment: DUPL ICATE Performed By: #### L 100.0100, L500.2500 ####[facility] [address] [place], [address] RDW SD Normal 35.1-43.9 [facility] Comment on above: Result Comment: DUPL ICATE Performed By: #### L 100.0100, L500.2500 ####[facility] [address] [place], [address] WBC Normal 4.4-11.0 [facility] Comment on above: Result Comment: DUPL ICATE Performed By: #### L 100.0100, L500.2500 ####[facility] [address] [place], [place], [address] Chest 1 View (Portable)on Chest 1 View (Portable) Normal [facility] Electrocardiogram reportOrde red By: Rosy Colindres on 07-17-2025 EKG study [facility] Other Natriuretic peptide.B prohor clover N-Terminal [Mass/volume] in Serum or PlasmaOrdered By: Jack Haile on 07-17-2025 Natriuretic peptide.B prohormone N-Terminal [Mass/Vol] 6511 pg/mL High <900 [facility] Pro- Brain NATRIURETIC PEPTI Donna 07-17-2025 Natriuretic peptide B (Bld) [Mass/Vol] 6511 pg/mL High <=900 [facility] Comment on above: Result Comment: Hear t Failure Unlikely: < 300 pg/mLHeart Failure Likely< 50 Years: > 450 pg/mL50-75 Years: > 900 pg/mL>75 Years: > 1800 pg/mL Performed By: #### L 503.7505 ####[facility] [address] [place], [place], [address] Urine Cultureon 07-17-2025 URC Culture exhibits no growth. Normal [facility] Comment on above: Performed By: #### M 100.2400, M100.2000, M100.678, M100.2200 ####[facility] [address] [place], [address] 12 Lead EKGon 07-16-2025 12 Lead EKG Normal [facility] 12 Lead EKG Normal [facility] Abdomen/Pelvis without Conto n 07-16-2025 Abdomen/Pelvis without Cont Normal [facility] Assessment of wrist artery p atency prior to arterial punctureOrdered By: Gerard Santos on 07-16-2025 Arterial patency Wrist artery --pre arterial puncture N/A [facility] Bedside Glucoseon 07-16-2025 FINGERSTICK GLU 135 mg/dL High 74-106 [facility] Comment on above: Result Comment: CHERYL GEMENT OF PATIENT CARE PER NURSING PROTOCOL Performed By: #### L 501.080 ####[facility] [address] [place], [address] FINGERSTICK GLU 124 mg/dL High 74-106 [facility] Comment on above: Result Comment: CHERYL GEMENT OF PATIENT CARE PER NURSING PROTOCOL Performed By: #### L 501.080 ####[facility] [address] [place], [address] FINGERSTICK GLU 145 mg/dL High 74-106 [facility] Comment on above: Result Comment: CHERYL GEMENT OF PATIENT CARE PER NURSING PROTOCOL Performed By: #### L 501.080 ####[facility] [address] [place], [address] FINGERSTICK GLU 152 mg/dL High 74-106 [facility] Comment on above: Result Comment: CHERYL GEMENT OF PATIENT CARE PER NURSING PROTOCOL Performed By: #### L 501.080 ####[facility] [address] [place], [address] Bilirubin Test strip Ql (U)O rdered By: Jack Haile on 07-16-2025 Bilirubin Ql (U) Negative Negative [facility] Bilirubin, totalOrdered By: Bernardo Sharif on 07-16-2025 Bilirubin [Mass/Vol] 0.34 mg/dL 0.00-1.30 [facility] Blood Gases by CPSon 025 JUDITH TEST N/A Normal [facility] Comment on above: Performed By: #### L 9000.0800 ####[facility] [address] [place], [address] Base excess Calc (Bld) [Moles/Vol] 6 mmol/L High -2 to +2 [facility] Comment on above: Performed By: #### L 9000.0800 ####[facility] [address] [place], [address] Blood Gas Type ART Normal [facility] Comment on above: Performed By: #### L 9000.0800 ####[facility] [address] [place], [address] CO2 [Moles/Vol] 30 mmol/L Normal [facility] Comment on above: Performed By: #### L 9000.0800 ####[facility] [address] [place], [address] FI02 50.0 Normal [facility] Comment on above: Performed By: #### L 9000.0800 ####[facility] [address] [place], [address] HCO3 (Bld) [Moles/Vol] 29.1 mmol/L High 22-26 [facility] Comment on above: Performed By: #### L 9000.0800 ####[facility] [address] [place], [address] Mode AC Normal [facility] Comment on above: Performed By: #### L 9000.0800 ####[facility] [address] [place], [address] O2 Delivery Dev Adult Vent Normal [facility] Comment on above: Performed By: #### L 9000.0800 ####[facility] [address] [place], [address] pCO2 38.6 mmHg Normal 35-45 [facility] Comment on above: Performed By: #### L 9000.0800 ####[facility] [address] [place], [address] PEEP 5 Normal [facility] Comment on above: Performed By: #### L 9000.0800 ####[facility] [address] [place], [address] pH (Bld) 7.49 [pH] High 7.35-7.45 [facility] Comment on above: Performed By: #### L 9000.0800 ####[facility] [address] [place], [address] PO2 96 mmHG Normal 75-100 [facility] Comment on above: Performed By: #### L 9000.0800 ####[facility] [address] [place], [address] RR 20 Normal [facility] Comment on above: Performed By: #### L 9000.0800 ####[facility] [address] [place], [address] SITE L Radial Normal [facility] Comment on above: Performed By: #### L 9000.0800 ####[facility] [address] [place], [address] SO2 98 Normal 95-99 [facility] Comment on above: Performed By: #### L 9000.0800 ####[facility] [address] [place], [address] Vt 400.0 mL Normal [facility] Comment on above: Performed By: #### L 9000.0800 ####[facility] [address] [place], [address] JUDITH TEST N/A Normal [facility] Comment on above: Performed By: #### L 9000.0800 ####[facility] [address] [place], [address] Base excess Calc (Bld) [Moles/Vol] -9 mmol/L Low -2 to +2 [facility] Comment on above: Performed By: #### L 9000.0800 ####[facility] [address] [place], [address] Blood Gas Type ART Normal [facility] Comment on above: Performed By: #### L 0.0800 ####[facility] [address] [place], [address] CO2 [Moles/Vol] 24 mmol/L Normal [facility] Comment on above: Performed By: #### L 0.0800 ####[facility] [address] [place], [address] FI02 50.0 Normal [facility] Comment on above: Performed By: #### L 0.0800 ####[facility] [address] [place], [address] HCO3 (Bld) [Moles/Vol] 21.2 mmol/L Low 22-26 [facility] Comment on above: Performed By: #### L 0.0800 ####[facility] [address] [place], [address] Mode AC Normal [facility] Comment on above: Performed By: #### L 0.0800 ####[facility] [address] [place], [address] O2 Delivery Dev Adult Vent Normal [facility] Comment on above: Performed By: #### L 0.0800 ####[facility] [address] [place], [address] pCO2 75.1 mmHg Invalid Interpretation Code 35-45 [facility] Comment on above: Performed By: #### L 0.0800 ####[facility] [address] [place], [address] PEEP 5 Normal [facility] Comment on above: Performed By: #### L 0.0800 ####[facility] [address] [place], [address] pH (Bld) 7.06 [pH] Invalid Interpretation Code 7.35-7.45 [facility] Comment on above: Performed By: #### L 8999.0800 ####[facility] [address] [place], [address] PO2 73 mmHG Low 75-100 [facility] Comment on above: Performed By: #### L 8999.0800 ####[facility] [address] [place], [address] Read Back By Yes [facility] Comment on above: Performed By: #### L 8999.0800 ####[facility] [address] [place], [address] Sharif [facility] Comment on above: Performed By: #### L 8999.0800 ####[facility] [address] [place], [address] RR 20 [facility] Comment on above: Performed By: #### L 8999.0800 ####[facility] [address] [place], [address] SITE L Radial [facility] Comment on above: Performed By: #### L 8999.0800 ####[facility] [address] [place], [address] SO2 86 Low 95-99 [facility] Comment on above: Performed By: #### L 8999.0800 ####[facility] [address] [place], [address] Time Given 04:00:19 [facility] Comment on above: Performed By: #### L 0.0800 ####[facility] [address] [place], [address] Vt 400.0 mL [facility] Comment on above: Performed By: #### L 8999.0800 ####[facility] [address] [place], [address] Blood cultureOrdered By: Gissel romano Chante on 07-16-2025 Bacteria identified Cx Nom (Bld) No growth in 5 days. [facility] Bacteria identified Cx Nom (Bld) No growth in 5 days. [facility] Blood manual differential co mment interpretation (narrative result)Ordered By: Beranrdo Chante on 07-16-2025 Manual differential comment Dandy (Bld) [Interp] SCANNED [facility] Brain/Head without Contrasto n 07-16-2025 Brain/Head without Contrast Normal [facility] CBC W/Diff, Automatedon 06-24 SMEAR COMMENT SCANNED Normal [facility] Comment on above: Result Comment: LYMP HOCYTOSIS PRESENT Performed By: #### L 503.6005, L501.4021, L100.0100 ####[facility] [address] [place], [place], [id number] CPK Total, Creatine Kinaseon 07-16-2025 CPK TOTAL 126 U/L Normal 24- [facility] Comment on above: Order Comment: Comme nts: DC when propofol is d/c'd Performed By: #### L 501.5000, L501.3620 ####[facility] [address] [place], [place], [address] CTA Chest W/WO Contraston CTA Chest W/WO Contrast Normal [facility] Calculated very low density lipoprotein (VLDL) cholesterol measurementOrdered By: Jack Haile on 07-16-2025 Calculated very low density lipoprotein (VLDL) cholesterol measurement 20 mg/dL 5-40 [facility] Chest 1 View (Portable)on Chest 1 View (Portable) Normal [facility] Comprehensive Metabolic Prof ilon 07-16-2025 Albumin [Mass/Vol] 3.8 g/dL Normal 3.4-4.8 [facility] Comment on above: Performed By: #### L 500.4050, L503.7505 ####[facility] [address] [place], [place], [address] Albumin/Globulin [Mass ratio] 1.2 {ratio} Normal 0.9-2.4 [facility] Comment on above: Performed By: #### L 500.4050, L503.7505 ####[facility] [address] [place], [address] ALK PHOS 163 U/L High 35-104 [facility] Comment on above: Performed By: #### L 500.4050, L503.7505 ####[facility] [address] [place], [address] ALT [Catalytic activity/Vol] 118 U/L High <=34 [facility] Comment on above: Performed By: #### L 500.4050, L503.7505 ####[facility] [address] [place], [address] AST [Catalytic activity/Vol] 158 U/L High <=31 [facility] Comment on above: Result Comment: Hemo lysis present, Results??could be affected.?? Performed By: #### L 500.4050, L503.7505 ####[facility] [address] [place], [address] Bilirubin [Mass/Vol] 0.34 mg/dL Normal 0.00-1.30 [facility] Comment on above: Performed By: #### L 500.4050, L503.7505 ####[facility] [address] [place], [address] BUN/CRE 13.1 RATIO Normal 10-20 [facility] Comment on above: Performed By: #### L 500.4050, L503.7505 ####[facility] [address] [place], [address] Calcium [Mass/Vol] 8.5 mg/dL Normal 7.6-11.0 [facility] Comment on above: Performed By: #### L 500.4050, L503.7505 ####[facility] [address] [place], [address] Chloride [Moles/Vol] 100 mmol/L Normal 98-108 [facility] Comment on above: Performed By: #### L 500.4050, L503.7505 ####[facility] [address] [place], [address] CO2 [Moles/Vol] 21.7 mmol/L Normal 21.0-32.0 [facility] Comment on above: Performed By: #### L 500.4050, L503.7505 ####[facility] [address] [place], [address] Creatinine [Mass/Vol] 1.27 mg/dL High 0.70-1.20 [facility] Comment on above: Performed By: #### L 500.4050, L503.7505 ####[facility] [address] [place], [address] ECRCL 34.32 ml/min Low 50-250 [facility] Comment on above: Performed By: #### L 500.4050, L503.7505 ####[facility] [address] [place], [address] GAP 15 Normal 5-15 [facility] Comment on above: Performed By: #### L 500.4050, L503.7505 ####[facility] [address] [place], [address] GFR/1.73 sq M.predicted among non-blacks MDRD (S/P/Bld) [Vol rate/Area] 45 mL/min/{1.73_m2} Low >60 [facility] Comment on above: Result Comment: mL/m in/1.73m2 CKD-EPI Creatinine Equation (2020) Performed By: #### L 500.4050, L503.7505 ####[facility] [address] [place], [address] Globulin (S) [Mass/Vol] 3.1 g/dL Normal 2.2-4.2 [facility] Comment on above: Performed By: #### L 500.4050, L503.7505 ####[facility] [address] [place], [address] Glucose [Mass/Vol] 368 mg/dL High 70-99 [facility] Comment on above: Performed By: #### L 500.4050, L503.7505 ####[facility] [address] [place], [address] Potassium [Moles/Vol] 3.7 mmol/L Normal 3.3-5.1 [facility] Comment on above: Result Comment: Hemo lysis present, Results??could be affected.?? Performed By: #### L 500.4050, L503.7505 ####[facility] [address] [place], [address] Sodium [Moles/Vol] 137 mmol/L Normal 133-145 [facility] Comment on above: Performed By: #### L 500.4050, L503.7505 ####[facility] [address] [place], [address] T PROT 6.9 g/dL Normal 5.9-8.4 [facility] Comment on above: Performed By: #### L 500.4050, L503.7505 ####[facility] [address] [place], [address] Urea nitrogen [Mass/Vol] 17 mg/dL Normal 4-19 [facility] Comment on above: Performed By: #### L 500.4050, L503.7505 ####[facility] [address] [place], [address] Consultation - Intensiviston 07-16-2025 Consultation - Inspector And Tester Normal [facility] Echo Completeon 07-16-2025 Echo Complete Normal [facility] Echocardiogram study reportO rdered By: Dashawn Christiansen on 07-16-2025 Study report [facility] Work Phone: Emergency Department Summary on 07-16-2025 Emergency Department Summary Normal [facility] Gram stainOrdered By: Bernardo Sharif on 07-16-2025 Microscopic observation Gram stain Nom (Unsp spec) [facility] H AND P Exam - Hospitaliston 07-16-2025 H&P Exam - Hospitalist Normal [facility] Hemoglobin A1con 07-16-2025 HbA1c (Bld) [Mass fraction] 6.1 % High <=5.6 [facility] Comment on above: Result Comment: Norm al < 5.7 % Prediabetic 5.7 - 6.4 % Diabetic >or= 6.5 % Please note range changes. Performed By: #### L 501.9955 ####[facility] [address] [place], [place], [address] Hemoglobin A1c percentageOrd ered By: Jack Haile on 07-16-2025 HbA1c (Bld) [Mass fraction] 6.1 % High <5.7 [facility] Influenza virus A and B and SARS-CoV-2 (COVID-19) and Respiratory syncytial virus RNAOrdered By: Bernardo Sharif on 07-16-2025 SARS-CoV-2 (COVID-19) RNA ALEJANDRO+probe Ql (Unsp spec) [facility] Ketones Test strip Ql (U)Ord ered By: Jack Haile on 07-16-2025 Ketones Ql (U) Negative Negative [facility] L501.4021on 07-16-2025 Trop T High Sen 114 ng/L Invalid Interpretation Code <=14 [facility] Comment on above: Result Comment: Crit ical Result(s) Called at:0517 by: MARTY ROWELLN TO GONZALOPARR??Results read back by same. Performed By: #### L 503.6005, L501.4021, L100.0100 ####[facility] [address] [place], [address] LDL calc ser/plasOrdered By: Jack Haile on 07-16-2025 Cholesterol in LDL [Mass/Vol] 146 mg/dL [facility] Lactic Acidon 07-16-2025 Lactate [Moles/Vol] 1.4 mmol/L Normal 0.0-2.0 [facility] Comment on above: Performed By: #### L 503.6005 ####[facility] [address] [place], [address] Lactate [Moles/Vol] 3.2 mmol/L Invalid Interpretation Code 0.0-2.0 [facility] Comment on above: Order Comment: Y Result Comment: Crit ical Result(s) Called at:0451 by: MARTY WINN TO GRETA Results read back by same. Performed By: #### L 503.6005, L501.4021, L100.0100 ####[facility] [address] [place], [address] Legionella Antigen Urineon 0 07-16-2025 LEGU Normal [facility] Comment on above: Performed By: #### M 300.4500, M100.638, M300.4600, L400.0001 ####[facility] [address] [place], [address] Lipid Profileon 07-16-2025 Cholesterol in LDL [Mass/Vol] 146 mg/dL Normal [facility] Comment on above: Order Comment: WG1 5 F Result Comment: Bord afbkxy=701-893 mg/dL Higher Xkdu=909 mg/dL or greaterFriedwald Equation for LDL-C Performed By: #### L 500.4100 ####[facility] [address] [place], [address] Cholesterol in VLDL [Mass/Vol] 20 mg/dL Normal 5-40 [facility] Comment on above: Order Comment: WG1 5 F Performed By: #### L 500.4100 ####[facility] [address] [place], [address] Triglyceride [Mass/Vol] 99 mg/dL Normal [facility] Comment on above: Order Comment: WG1 5 F Result Comment: The drugs N-Acetylcysteine and Metamizole may falselydepress this assay.Normal range: <150 mg/dLBorderline High: 150-199 mg/dLHigh: 200-499 mg/dLVery High: >500 mg/dL Performed By: #### L 500.4100 ####[facility] [address] [place], [address] M100.678on 07-16-2025 M100.678 SARS-CoV-2 (COVID 19 ) Negative INFLUENZA A Negative INFLUENZA B Negative RSV PCR Negative Normal [facility] Comment on above: Performed By: #### M 100.2400, M100.2000, M100.678, M100.2200 ####[facility] [address] [place], [address] M8200.1000on 07-16-2025 M8200.1000 Negative Normal [facility] Comment on above: Performed By: #### M 8200.1000 ####[facility] [address] [place], [address] Magnesiumon 07-16-2025 Magnesium [Mass/Vol] 2.8 mg/dL High 1.5-2.2 [facility] Comment on above: Performed By: #### L 501.5200 ####[facility] [address] [place], [address] Microbial respiratory cultur eOrdered By: Bernardo Sharif on 07-16-2025 Microorganism identified Cx Nom (Unsp spec) or Staphylococcus aureus isolated. [facility] Mucus LM Ql (Urine sed)Order ed By: Jack Haile on 07-16-2025 Mucus Ql (Urine sed) 0 SEEN /hpf [facility] Nasal methicillin resistant Staphylococcus aureus (MRSA) DNA detection by PCROrdered By: Eleazar Valle on 07-16-2025 MRSA DNA ALEJANDRO+probe Ql (Nose) [facility] Nitrite Test strip Ql (U)Ord ered By: Jack Haile on 07-16-2025 Nitrite Ql (U) Negative Negative [facility] No Panel InformationOrdered By: Bernardo Sharif on 07-16-2025 04:00:19 [facility] [address] Sharif [facility] Yes [facility] 158 U/L High <32 [facility] Pro- Brain NATRIURETIC PEPTI Donna 07-16-2025 Natriuretic peptide B (Bld) [Mass/Vol] 7963 pg/mL High <=900 [facility] Comment on above: Result Comment: Hear t Failure Unlikely: < 300 pg/mLHeart Failure Likely< 50 Years: > 450 pg/mL50-75 Years: > 900 pg/mL>75 Years: > 1800 pg/mL Performed By: #### L 500.4050, L503.7505 ####[facility] [address] [place], [place], [address] Protein Test strip Ql (U)Ord ered By: Jack Haile on 07-16-2025 Protein Ql (U) 30 mg/dl High Negative [facility] RESPIRATORY PANEL MOLECULARo n 07-16-2025 RP PANEL Normal [facility] Comment on above: Performed By: #### M 300.4500, M100.638, M300.4600, L400.0001 ####[facility] [address] [place], [place], [address] Respiratory pathogens detect ion panel by molecular detection methodOrdered By: Jack Haile on 07-16-2025 Respiratory pathogens DNA and RNA panel ALEJANDRO+probe (Resp) [facility] Serum globulin measurementOr dered By: Bernardo Sharif on 07-16-2025 Globulin (S) [Mass/Vol] 3.1 g/dL 2.2-4.2 [facility] Serum or plasma alanine kinney otransferase (ALT) measurementOrdered By: Bernardo Sharif on 07-16-2025 ALT [Catalytic activity/Vol] 118 U/L High <35 [facility] Serum or plasma albumin erik urement (mass/volume)Ordered By: Bernardo Sharif on 07-16-2025 Albumin [Mass/Vol] 3.8 g/dL 3.4-4.8 [facility] Serum or plasma albumin/glob ulin mass ratioOrdered By: Bernardo Sharif on 07-16-2025 Albumin/Globulin [Mass ratio] 1.2 {ratio} 0.9-2.4 [facility] Serum or plasma alkaline chris sphatase measurementOrdered By: Bernardo Sharif on 07-16-2025 ALP [Catalytic activity/Vol] 163 U/L High 35-104 [facility] Serum or plasma cholesterol in HDL measurement (mass/volume)Ordered By: Jack Haile on 07-16-2025 Cholesterol in HDL [Mass/Vol] 67 mg/dL >40 [facility] Serum or plasma cholesterol measurement (mass/volume)Ordered By: Jack Haile on 07-16-2025 Cholesterol [Mass/Vol] 233 mg/dL High <201 [facility] Serum or plasma creatine kin ase activityOrdered By: Bernardo Sharif on 07-16-2025 CK [Catalytic activity/Vol] 126 U/L 24-195 [facility] Squamous epithelial cells de tection in urine sediment by light microscopyOrdered By: Jack Haile on 07-16-2025 Epithelial cells.squamous LM Ql (Urine sed) 0 SEEN /hpf 5-10 [facility] Strep pneumoniae Antig(UR,CS F)on 07-16-2025 STPAG Normal [facility] Comment on above: Performed By: #### M 300.4500, M100.638, M300.4600, L400.0001 ####[facility] [address] [place], [address] Total proteinOrdered By: Jaime Sharif on 07-16-2025 Protein [Mass/Vol] 6.9 g/dL 5.9-8.4 [facility] Triglycerideson 07-16-2025 Triglyceride [Mass/Vol] 67 mg/dL Normal [facility] Comment on above: Order Comment: Comme nts: DC when propofol is d/c'dDC when propofol is d/c'd Result Comment: The drugs N-Acetylcysteine and Metamizole may falselydepress this assay.Normal range: <150 mg/dLBorderline High: 150-199 mg/dLHigh: 200-499 mg/dLVery High: >500 mg/dL Performed By: #### L 501.5000, L501.3620 ####[facility] [address] [place], [address] Troponin T HS 2 HRon 025 Trop T High Sen 95 ng/L Invalid Interpretation Code <=14 [facility] Comment on above: Result Comment: Crit ical Result(s) Called at: 0622 by:??MARTY MIMS Results read back by same. Performed By: #### L 499.0042 ####[facility] [address] [place], [address] Troponin T HS 4 HRon 025 Trop T High Sen 93 ng/L Invalid Interpretation Code <=14 [facility] Comment on above: Result Comment: Crit ical Result(s) Called at: 0946 07/16/2025 by: JOSE ??Results read back by same. Performed By: #### L 499.0043 ####[facility] [address] [place], [address] Trop T High Sen Normal <=14 [facility] Comment on above: Result Comment: DUPL ICATE ORDER. Performed By: #### L 499.0043 ####[facility] [address] [place], [address] Troponin T.cardiac [Mass/vol ume] in Serum or Plasma by High sensitivity methodOrdered By: Jack Haile on 07-16-2025 Troponin T.cardiac High sensitivity method [Mass/Vol] 93 ng/L Critically high <14 [facility] Troponin T.cardiac [Mass/vol ume] in Serum or Plasma by High sensitivity methodOrdered By: Bernardo Sharif on 07-16-2025 Troponin T.cardiac High sensitivity method [Mass/Vol] 95 ng/L Critically high <14 [facility] Troponin T.cardiac High sensitivity method [Mass/Vol] 114 ng/L Critically high <14 [facility] Urinalysis, Completeon 07-16 BACTERIA 0 SEEN Normal None Seen [facility] Comment on above: Order Comment: DAVINA TER SPECIMEN Performed By: #### M 300.4500, M100.638, M300.4600, L400.0001 ####[facility] [address] [place], [address] EPI,SQUAMOUS 0 SEEN Normal 5-10 [facility] Comment on above: Order Comment: DAVINA TER SPECIMEN Performed By: #### M 300.4500, M100.638, M300.4600, L400.0001 ####[facility] [address] [place], [address] Mucus Ql (Urine sed) 0 SEEN Normal [facility] Comment on above: Order Comment: DAVINA TER SPECIMEN Performed By: #### M 300.4500, M100.638, M300.4600, L400.0001 ####[facility] [address] [place], [address] RBC 0 SEEN Normal 0-5 [facility] Comment on above: Order Comment: DAVINA TER SPECIMEN Performed By: #### M 300.4500, M100.638, M300.4600, L400.0001 ####[facility] [address] [place], [address] WBC 0 SEEN Normal 0-5 [facility] Comment on above: Order Comment: DAVINA TER SPECIMEN Performed By: #### M 300.4500, M100.638, M300.4600, L400.0001 ####[facility] [address] [place], [address] Urine Legionella pneumophila antigen detectionOrdered By: Jack Haile on 07-16-2025 L. pneumophila Ag Ql (U) [facility] Urine clarityOrdered By: Nate Haile on 07-16-2025 Clarity (U) Clear Clear [facility] Urine color determinationOrd ered By: Jack Haile on 07-16-2025 Color (U) Straw Yellow [facility] Urine cultureOrdered By: Jaime Sharif on 07-16-2025 Bacteria identified Cx Nom (U) Culture exhibits no growth. [facility] Urine glucose detectionOrder ed By: Jack Haile on 07-16-2025 Glucose Ql (U) Normal mg/dl Normal [facility] Urine leukocyte esterase det ection by dipstickOrdered By: Jack Haile on 07-16-2025 Leukocyte esterase Test strip Ql (U) Negative Negative [facility] Urine pHOrdered By: Jack portillo on 07-16-2025 pH (U) 7.0 [pH] 5.0 - 8.0 [facility] Urine sediment bacteria coun t by microscopy (number/high power field)Ordered By: Jack Haile on 07-16-2025 Bacteria LM.HPF (Urine sed) [#/Area] 0 /[HPF] None Seen [facility] Urine specific gravity measu rementOrdered By: Jack Haile on 07-16-2025 Specific gravity (U) [Rel density] 1.005 1.002-1.030 [facility] Urine urobilinogen measureme ntOrdered By: Jack Haile on 07-16-2025 Urobilinogen Ql (U) Normal mg/dl Normal [facility] White blood cell countOrdere d By: Jack Haile on 07-16-2025 White blood cell count 0 SEEN /hpf 0-5 [facility] .Auto Diffon 06-25-2025 Basophil, Absolute 0.0 10 3/mcL Normal 0.0-0.3 [facility] Comment on above: Performed By: #### C BC, ADIFF, ANEU, APTT, CMP, HFP, GFR #### [address] [address] Basophils/100 WBC (Bld) 0.1 % Normal 0.0-2.5 [facility] Comment on above: Performed By: #### C BC, ADIFF, ANEU, APTT, CMP, HFP, GFR #### [place] [address] [address] Eosinophil, Absolute 0.0 10 3/mcL Normal 0.0-0.7 [facility] Comment on above: Performed By: #### C BC, ADIFF, ANEU, APTT, CMP, HFP, GFR #### [address] [address] Eosinophils/100 WBC (Bld) 0.2 % Normal 0.0-6.0 [facility] Comment on above: Performed By: #### C BC, ADIFF, ANEU, APTT, CMP, HFP, GFR #### [address] [address] Lymphocyte, Absolute 0.9 10 3/mcL Normal 0.9-4.3 [facility] Comment on above: Performed By: #### C BC, ADIFF, ANEU, APTT, CMP, HFP, GFR #### [address] [address] Lymphocytes/100 WBC (Bld) 9.0 % Low 20.0-40.0 [facility] Comment on above: Performed By: #### C BC, ADIFF, ANEU, APTT, CMP, HFP, GFR #### [address] [address] Monocyte, Absolute 0.4 10 3/mcL Normal 0.1-1.4 [facility] Comment on above: Performed By: #### C BC, ADIFF, ANEU, APTT, CMP, HFP, GFR #### [address] [address] Monocytes/100 WBC (Bld) 3.9 % Normal 2.0-13.0 [facility] Comment on above: Performed By: #### C BC, ADIFF, ANEU, APTT, CMP, HFP, GFR #### [address] [address] Neutrophils/100 WBC (Bld) 86.8 % High 50.0-75.0 [facility] Comment on above: Performed By: #### C BC, ADIFF, ANEU, APTT, CMP, HFP, GFR #### [address] [address] .GFRon 09-03-2025 Estimated Glomerular Filtration Rate 63 ml/min/1.73sqm Normal [facility] Comment on above: Result Comment: [...] ADIFF, ANEU, APTT, CMP, HFP, GFR #### [address] [address] .NEUABSon 06-25-2025 Neutrophil, Absolute 8.6 10 3/mcL High 2.3-8.1 [facility] Comment on above: Performed By: #### C BC, ADIFF, ANEU, APTT, CMP, HFP, GFR #### [address] [address] BMPon 06-25-2025 BUN/Creatinine Ratio 19.8 ratio Normal 10.0-22.0 [facility] Comment on above: Performed By: #### C BC, ADIFF, ANEU, APTT, CMP, HFP, GFR #### [place] [id number] [place] [address] Calcium [Mass/Vol] 8.8 mg/dL Normal 8.7-10.4 [facility] Comment on above: Performed By: #### C BC, ADIFF, ANEU, APTT, CMP, HFP, GFR #### [place] [address] [place] [address] Chloride [Moles/Vol] 104 mmol/L Normal 98-110 [facility] Comment on above: Performed By: #### C BC, ADIFF, ANEU, APTT, CMP, HFP, GFR #### [place] [address] [address] CO2 [Moles/Vol] 24 mmol/L Normal 22-32 [facility] Comment on above: Performed By: #### C BC, ADIFF, ANEU, APTT, CMP, HFP, GFR #### [address] [address] Creatinine [Mass/Vol] 0.96 mg/dL Normal 0.50-1.20 [facility] Comment on above: Result Comment: Test ing performed on Usetrace analyzer using enzymatic creatinine methodology. Performed By: #### C BC, ADIFF, ANEU, APTT, CMP, HFP, GFR #### [address] [address] Electrolyte Balance 9.0 mEq/L Normal 4.0-15.0 [facility] Comment on above: Performed By: #### C BC, ADIFF, ANEU, APTT, CMP, HFP, GFR #### [address] [address] Glucose [Mass/Vol] 134 mg/dL High 82-115 [facility] Comment on above: Performed By: #### C BC, ADIFF, ANEU, APTT, CMP, HFP, GFR #### [address] [address] Potassium [Moles/Vol] 4.6 mmol/L Normal 3.5-5.0 [facility] Comment on above: Performed By: #### C BC, ADIFF, ANEU, APTT, CMP, HFP, GFR #### [address] [address] Sodium [Moles/Vol] 137 mmol/L Normal 136-145 [facility] Comment on above: Performed By: #### C BC, ADIFF, ANEU, APTT, CMP, HFP, GFR #### [address] [address] Urea nitrogen [Mass/Vol] 19.0 mg/dL Normal 8.0-22.0 [facility] Comment on above: Performed By: #### C BC, ADIFF, ANEU, APTT, CMP, HFP, GFR #### [place] [address] CBCon 06-25-2025 Erythrocyte distribution width (RBC) [Ratio] 14.7 % Normal 11.5-15.5 [facility] Comment on above: Performed By: #### C BC, ADIFF, ANEU, APTT, CMP, HFP, GFR #### [place] [address] Hematocrit (Bld) [Volume fraction] 33.3 % Low 34.0-46.0 [facility] Comment on above: Performed By: #### C BC, ADIFF, ANEU, APTT, CMP, HFP, GFR #### [place] [address] Hgb 11.1 G/dL Low 12.0-16.0 [facility] Comment on above: Performed By: #### C BC, ADIFF, ANEU, APTT, CMP, HFP, GFR #### [place] [address] MCH (RBC) [Entitic mass] 29.4 pg Normal 27.0-33.0 [facility] Comment on above: Performed By: #### C BC, ADIFF, ANEU, APTT, CMP, HFP, GFR #### [place] [address] MCHC 33.3 G/dL Normal 32.0-36.0 [facility] Comment on above: Performed By: #### C BC, ADIFF, ANEU, APTT, CMP, HFP, GFR #### [place] [address] MCV (RBC) [Entitic vol] 88.5 fL Normal 80.0-99.0 [facility] Comment on above: Performed By: #### C BC, ADIFF, ANEU, APTT, CMP, HFP, GFR #### [place] [address] Platelet 341 10 3/mcL Normal 150-450 [facility] Comment on above: Performed By: #### C BC, ADIFF, ANEU, APTT, CMP, HFP, GFR #### [place] [address] Platelet mean volume (Bld) [Entitic vol] 8.0 fL Normal 6.6-10.5 [facility] Comment on above: Performed By: #### C BC, ADIFF, ANEU, APTT, CMP, HFP, GFR #### [place] [id number] [place] [address] RBC 3.77 10 6/mcL Low 4.10-5.30 [facility] Comment on above: Performed By: #### C BC, ADIFF, ANEU, APTT, CMP, HFP, GFR #### [place] [id number] [place] [address] WBC 10.0 10 3/mcL Normal 4.5-10.8 [facility] Comment on above: Performed By: #### C BC, ADIFF, ANEU, APTT, CMP, HFP, GFR #### [place] [address] LABORATORYOrdered By: SYSTEM SYSTEM on 06-25-2025 Basophils [...] above: Interpretive Data: T esting performed on Usetrace analyzer using enzymatic creatinine methodology. Electrolyte Balance [...] 06-25-2025 Magnesium [Mass/Vol] 2.0 mg/dL Normal 1.6-2.4 [facility] Comment on above: Performed By: #### C BC, ADIFF, ANEU, APTT, CMP, HFP, GFR #### [address] [address] .Auto Diffon 06-24-2025 Basophil, Absolute 0.0 10 3/mcL Normal 0.0-0.3 [facility] Comment on above: Performed By: #### L AC #### [address] [address] Basophils/100 WBC (Bld) 0.2 % Normal 0.0-2.5 [facility] Comment on above: Performed By: #### L AC #### [address] [address] Eosinophil, Absolute 0.2 10 3/mcL Normal 0.0-0.7 [facility] Comment on above: Performed By: #### L AC #### [address] [address] Eosinophils/100 WBC (Bld) 1.8 % Normal 0.0-6.0 [facility] Comment on above: Performed By: #### L AC #### [facility] [address] [place] [address] Lymphocyte, Absolute 4.1 10 3/mcL Normal 0.9-4.3 [facility] Comment on above: Performed By: #### L AC #### [facility] [address] [place] [address] Lymphocytes/100 WBC (Bld) 31.0 % Normal 20.0-40.0 [facility] Comment on above: Performed By: #### L AC #### [facility] [address] [place] [address] Monocyte, Absolute 1.0 10 3/mcL Normal 0.1-1.4 [facility] Comment on above: Performed By: #### L AC #### [address] [address] Monocytes/100 WBC (Bld) 7.6 % Normal 2.0-13.0 [facility] Comment on above: Performed By: #### L AC #### [address] [address] Neutrophils/100 WBC (Bld) 59.4 % Normal 50.0-75.0 [facility] Comment on above: Performed By: #### L AC #### [address] [address] .GFRon 06-24-2025 Estimated Glomerular Filtration Rate 60 ml/min/1.73sqm Normal [facility] Comment on above: Result Comment: [...] results. Performed By: #### L AC #### [address] [address] .NEUABSon 06-24-2025 Neutrophil, Absolute 7.9 10 3/mcL Normal 2.3-8.1 [facility] Comment on above: Performed By: #### L AC #### [place] [address] APTTon 06-24-2025 aPTT Coag (Bld) [Time] 68.0 s High 25.0-35.0 [facility] Comment on above: Result Comment: For Heparin anticoagulation therapy, the recommended therapeutic range is: 54-77 seconds (APTT Correlation with Anti-Xa therapeutic range of 0.3-0.7 units/ml). PLEASE REFERENCE THE PHARMACY PROTOCOL FOR DOSING. Performed By: #### A PTT ####[place] [address] aPTT Coag (Bld) [Time] 52.5 s High 25.0-35.0 [facility] Comment on above: Result Comment: For Heparin anticoagulation therapy, the recommended therapeutic range is: 54-77 seconds (APTT Correlation with Anti-Xa therapeutic range of 0.3-0.7 units/ml). PLEASE REFERENCE THE PHARMACY PROTOCOL FOR DOSING. Performed By: #### L AC #### [place] [address] aPTT Coag (Bld) [Time] 48.2 s High 25.0-35.0 [facility] Comment on above: Result Comment: For Heparin anticoagulation therapy, the recommended therapeutic range is: 54-77 seconds (APTT Correlation with Anti-Xa therapeutic range of 0.3-0.7 units/ml). PLEASE REFERENCE THE PHARMACY PROTOCOL FOR DOSING. Performed By: #### A PTT #### [place] [address] CBCon 06-24-2025 Erythrocyte distribution width (RBC) [Ratio] 14.3 % Normal 11.5-15.5 [facility] Comment on above: Performed By: #### L AC #### [place] [address] Hematocrit (Bld) [Volume fraction] 36.2 % Normal 34.0-46.0 [facility] Comment on above: Performed By: #### L AC #### [place] [address] Hgb 11.9 G/dL Low 12.0-16.0 [facility] Comment on above: Performed By: #### L AC #### [place] [id number] MCH (RBC) [Entitic mass] 29.1 pg Normal 27.0-33.0 [facility] Comment on above: Performed By: #### L AC #### [place] [address] MCHC 32.9 G/dL Normal 32.0-36.0 [facility] Comment on above: Performed By: #### L AC #### [place] [address] MCV (RBC) [Entitic vol] 88.3 fL Normal 80.0-99.0 [facility] Comment on above: Performed By: #### L AC #### [place] [id number] Platelet 371 10 3/mcL Normal 150-450 [facility] Comment on above: Performed By: #### L AC #### [place] [id number] Platelet mean volume (Bld) [Entitic vol] 8.1 fL Normal 6.6-10.5 [facility] Comment on above: Performed By: #### L AC #### [place] [id number] RBC 4.10 10 6/mcL Normal 4.10-5.30 [facility] Comment on above: Performed By: #### L AC #### [place] [id number] WBC 13.3 10 3/mcL High 4.5-10.8 [facility] Comment on above: Performed By: #### L AC #### [place] [id number] CMPon 06-24-2025 Albumin Level 3.5 G/dL Normal 3.2-4.8 [facility] Comment on above: Performed By: #### L AC #### [address] [address] Albumin/Globulin [Mass ratio] 1.2 {ratio} Normal 0.9-1.6 [facility] Comment on above: Performed By: #### L AC #### [address] [address] ALP [Catalytic activity/Vol] 69 U/L Normal 38-126 [facility] Comment on above: Performed By: #### L AC #### [address] [address] ALT [Catalytic activity/Vol] 74 U/L High 10-49 [facility] Comment on above: Performed By: #### L AC #### [address] [address] AST [Catalytic activity/Vol] 44 U/L High 8-34 [facility] Comment on above: Performed By: #### L AC #### [address] [address] Bili Total 0.40 mg/dL Normal 0.20-1.20 [facility] Comment on above: Result Comment: Use of this assay is not recommended for patients undergoing treatment with eltrombopag due to the potential for falsely elevated results. Performed By: #### L AC #### [place] [id number] BUN/Creatinine Ratio 19.0 ratio Normal 10.0-22.0 [facility] Comment on above: Performed By: #### L AC #### [address] [address] Calcium [Mass/Vol] 9.2 mg/dL Normal 8.7-10.4 [facility] Comment on above: Performed By: #### L AC #### [place] [id number] Chloride [Moles/Vol] 102 mmol/L Normal 98-110 [facility] Comment on above: Performed By: #### L AC #### [place] [address] [address] CO2 [Moles/Vol] 30 mmol/L Normal 22-32 [facility] Comment on above: Performed By: #### L AC #### [address] [address] Creatinine [Mass/Vol] 1.00 mg/dL Normal 0.50-1.20 [facility] Comment on above: Result Comment: Test ing performed on Usetrace analyzer using enzymatic creatinine methodology. Performed By: #### L AC #### [address] [address] Electrolyte Balance 7.0 mEq/L Normal 4.0-15.0 [facility] Comment on above: Performed By: #### L AC #### [address] [address] Globulin 3.0 G/dL Normal 2.5-4.2 [facility] Comment on above: Performed By: #### L AC #### [address] [address] Glucose [Mass/Vol] 91 mg/dL Normal 82-115 [facility] Comment on above: Performed By: #### L AC #### [address] [address] Potassium [Moles/Vol] 3.8 mmol/L Normal 3.5-5.0 [facility] Comment on above: Performed By: #### L AC #### [address] [address] Sodium [Moles/Vol] 139 mmol/L Normal 136-145 [facility] Comment on above: Performed By: #### L AC #### [address] [address] Total Protein 6.5 G/dL Normal 5.7-8.2 [facility] Comment on above: Performed By: #### L AC #### [address] [address] Urea nitrogen [Mass/Vol] 19.0 mg/dL Normal 8.0-22.0 [facility] Comment on above: Performed By: #### L AC #### [place] [address] LABORATORYOrdered By: SYSTEM SYSTEM on 06-24-2025 aPTT [...] above: Interpretive Data: T esting performed on Usetrace analyzer using enzymatic creatinine methodology. Electrolyte Balance [...] 06-24-2025 Magnesium [Mass/Vol] 2.2 mg/dL Normal 1.6-2.4 [facility] Comment on above: Performed By: #### L AC #### [address] [address] .Auto Diffon 06-23-2025 Basophil, Absolute 0.1 10 3/mcL Normal 0.0-0.3 [facility] Comment on above: Performed By: #### A PTT #### [address] [address] Basophils/100 WBC (Bld) 0.5 % Normal 0.0-2.5 [facility] Comment on above: Performed By: #### A PTT #### [address] [address] Eosinophil, Absolute 0.2 10 3/mcL Normal 0.0-0.7 [facility] Comment on above: Performed By: #### A PTT #### [address] [address] Eosinophils/100 WBC (Bld) 2.0 % Normal 0.0-6.0 [facility] Comment on above: Performed By: #### A PTT #### [address] [address] Lymphocyte, Absolute 3.7 10 3/mcL Normal 0.9-4.3 [facility] Comment on above: Performed By: #### A PTT #### [address] [address] Lymphocytes/100 WBC (Bld) 31.3 % Normal 20.0-40.0 [facility] Comment on above: Performed By: #### A PTT #### [address] [address] Monocyte, Absolute 1.0 10 3/mcL Normal 0.1-1.4 [facility] Comment on above: Performed By: #### A PTT #### [address] [address] Monocytes/100 WBC (Bld) 8.2 % Normal 2.0-13.0 [facility] Comment on above: Performed By: #### A PTT #### [address] [address] Neutrophils/100 WBC (Bld) 58.0 % Normal 50.0-75.0 [facility] Comment on above: Performed By: #### A PTT #### [address] [address] .GFRon 06-23-2025 Estimated Glomerular Filtration Rate 59 ml/min/1.73sqm Normal [facility] Comment on above: Result Comment: [...] results. Performed By: #### A PTT #### [address] [address] .NEUABSon 06-23-2025 Neutrophil, Absolute 6.9 10 3/mcL Normal 2.3-8.1 [facility] Comment on above: Performed By: #### A PTT #### [place] [id number] APTTon 06-23-2025 aPTT Coag (Bld) [Time] 52.7 s High 25.0-35.0 [facility] Comment on above: Result Comment: For Heparin anticoagulation therapy, the recommended therapeutic range is: 54-77 seconds (APTT Correlation with Anti-Xa therapeutic range of 0.3-0.7 units/ml). PLEASE REFERENCE THE PHARMACY PROTOCOL FOR DOSING. Performed By: #### L AC #### [place] [address] aPTT Coag (Bld) [Time] 67.1 s High 25.0-35.0 [facility] Comment on above: Result Comment: For Heparin anticoagulation therapy, the recommended therapeutic range is: 54-77 seconds (APTT Correlation with Anti-Xa therapeutic range of 0.3-0.7 units/ml). PLEASE REFERENCE THE PHARMACY PROTOCOL FOR DOSING. Performed By: #### A PTT ####[address] [address] aPTT Coag (Bld) [Time] 50.7 s High 25.0-35.0 [facility] Comment on above: Result Comment: For Heparin anticoagulation therapy, the recommended therapeutic range is: 54-77 seconds (APTT Correlation with Anti-Xa therapeutic range of 0.3-0.7 units/ml). PLEASE REFERENCE THE PHARMACY PROTOCOL FOR DOSING. Performed By: #### C BC, ADIFF, ANEU, APTT, CMP, HFP, GFR #### [address] [address] BMPon 06-23-2025 BUN/Creatinine Ratio 24.5 ratio High 10.0-22.0 [facility] Comment on above: Performed By: #### A PTT #### [address] [address] Calcium [Mass/Vol] 9.0 mg/dL Normal 8.7-10.4 [facility] Comment on above: Performed By: #### A PTT #### [address] [address] Chloride [Moles/Vol] 104 mmol/L Normal 98-110 [facility] Comment on above: Performed By: #### A PTT #### [address] [address] CO2 [Moles/Vol] 29 mmol/L Normal 22-32 [facility] Comment on above: Performed By: #### A PTT #### [address] [address] Creatinine [Mass/Vol] 1.02 mg/dL Normal 0.50-1.20 [facility] Comment on above: Result Comment: Test ing performed on Usetrace analyzer using enzymatic creatinine methodology. Performed By: #### A PTT #### [address] [address] Electrolyte Balance 5.0 mEq/L Normal 4.0-15.0 [facility] Comment on above: Performed By: #### A PTT #### [address] [address] Glucose [Mass/Vol] 90 mg/dL Normal 82-115 [facility] Comment on above: Performed By: #### A PTT #### [address] [address] Potassium [Moles/Vol] 4.5 mmol/L Normal 3.5-5.0 [facility] Comment on above: Performed By: #### A PTT #### [address] [address] Sodium [Moles/Vol] 138 mmol/L Normal 136-145 [facility] Comment on above: Performed By: #### A PTT #### [place] [id number] Urea nitrogen [Mass/Vol] 25.0 mg/dL High 8.0-22.0 [facility] Comment on above: Performed By: #### A PTT #### [address] [address] CBCon 06-23-2025 Erythrocyte distribution width (RBC) [Ratio] 14.1 % Normal 11.5-15.5 [facility] Comment on above: Performed By: #### A PTT #### [address] [address] Hematocrit (Bld) [Volume fraction] 34.8 % Normal 34.0-46.0 [facility] Comment on above: Performed By: #### A PTT #### [address] [address] Hgb 11.4 G/dL Low 12.0-16.0 [facility] Comment on above: Performed By: #### A PTT #### [address] [address] MCH (RBC) [Entitic mass] 28.8 pg Normal 27.0-33.0 [facility] Comment on above: Performed By: #### A PTT #### [place] [address] MCHC 32.7 G/dL Normal 32.0-36.0 [facility] Comment on above: Performed By: #### A PTT #### [place] [address] MCV (RBC) [Entitic vol] 87.9 fL Normal 80.0-99.0 [facility] Comment on above: Performed By: #### A PTT #### [place] [address] Platelet 324 10 3/mcL Normal 150-450 [facility] Comment on above: Performed By: #### A PTT #### [place] [address] Platelet mean volume (Bld) [Entitic vol] 8.7 fL Normal 6.6-10.5 [facility] Comment on above: Performed By: #### A PTT #### [place] [address] RBC 3.96 10 6/mcL Low 4.10-5.30 [facility] Comment on above: Performed By: #### A PTT #### [place] [address] WBC 11.8 10 3/mcL High 4.5-10.8 [facility] Comment on above: Performed By: #### A PTT #### [place] [address] LABORATORYOrdered By: SYSTEM SYSTEM on 06-23-2025 Basophils [...] above: Interpretive Data: T esting performed on Usetrace analyzer using enzymatic creatinine methodology. Electrolyte Balance [...] 06-23-2025 Magnesium [Mass/Vol] 2.3 mg/dL Normal 1.6-2.4 [facility] Comment on above: Performed By: #### A PTT #### [address] [address] .Auto Diffon 06-22-2025 Basophil, Absolute 0.0 10 3/mcL Normal 0.0-0.3 [facility] Comment on above: Performed By: #### L AC #### [address] [address] Basophils/100 WBC (Bld) 0.6 % Normal 0.0-2.5 [facility] Comment on above: Performed By: #### L AC #### [address] [address] Eosinophil, Absolute 0.0 10 3/mcL Normal 0.0-0.7 [facility] Comment on above: Performed By: #### L AC #### [address] [address] Eosinophils/100 WBC (Bld) 0.4 % Normal 0.0-6.0 [facility] Comment on above: Performed By: #### L AC #### [address] [address] Lymphocyte, Absolute 1.7 10 3/mcL Normal 0.9-4.3 [facility] Comment on above: Performed By: #### L AC #### [address] [address] Lymphocytes/100 WBC (Bld) 23.0 % Normal 20.0-40.0 [facility] Comment on above: Performed By: #### L AC #### [address] [address] Monocyte, Absolute 0.7 10 3/mcL Normal 0.1-1.4 [facility] Comment on above: Performed By: #### L AC #### [address] [address] Monocytes/100 WBC (Bld) 9.6 % Normal 2.0-13.0 [facility] Comment on above: Performed By: #### L AC #### [address] [address] Neutrophils/100 WBC (Bld) 66.4 % Normal 50.0-75.0 [facility] [facility] Comment on above: Performed By: #### L AC #### [address] [address] .GFRon 06-22-2025 Estimated Glomerular Filtration Rate 63 ml/min/1.73sqm Normal [facility] Comment on above: Result Comment: [...] Performed By: #### L AC #### [place] [address] .NEUABSon 06-22-2025 Neutrophil, Absolute 5.0 10 3/mcL Normal 2.3-8.1 [facility] Comment on above: Performed By: #### L AC #### [place] [address] APTTon 06-22-2025 aPTT Coag (Bld) [Time] 47.8 s High 25.0-35.0 [facility] Comment on above: Result Comment: For Heparin anticoagulation therapy, the recommended therapeutic range is: 54-77 seconds (APTT Correlation with Anti-Xa therapeutic range of 0.3-0.7 units/ml). PLEASE REFERENCE THE PHARMACY PROTOCOL FOR DOSING. Performed By: #### L AC #### [place] [address] aPTT Coag (Bld) [Time] 48.7 s High 25.0-35.0 [facility] Comment on above: Result Comment: For Heparin anticoagulation therapy, the recommended therapeutic range is: 54-77 seconds (APTT Correlation with Anti-Xa therapeutic range of 0.3-0.7 units/ml). PLEASE REFERENCE THE PHARMACY PROTOCOL FOR DOSING. Performed By: #### A PTT ####[place] [address] aPTT Coag (Bld) [Time] 52.7 s High 25.0-35.0 [facility] Comment on above: Result Comment: For Heparin anticoagulation therapy, the recommended therapeutic range is: 54-77 seconds (APTT Correlation with Anti-Xa therapeutic range of 0.3-0.7 units/ml). PLEASE REFERENCE THE PHARMACY PROTOCOL FOR DOSING. Performed By: #### A PTT ####[place] [address] aPTT Coag (Bld) [Time] 49.2 s High 25.0-35.0 [facility] Comment on above: Result Comment: For Heparin anticoagulation therapy, the recommended therapeutic range is: 54-77 seconds (APTT Correlation with Anti-Xa therapeutic range of 0.3-0.7 units/ml). PLEASE REFERENCE THE PHARMACY PROTOCOL FOR DOSING. Performed By: #### A PTT ####[place] [address] BMPon 06-22-2025 BUN/Creatinine Ratio 30.2 ratio High 10.0-22.0 [facility] Comment on above: Performed By: #### L AC #### [place] [id number] Calcium [Mass/Vol] 8.6 mg/dL Low 8.7-10.4 [facility] Comment on above: Performed By: #### L AC #### [address] [address] Chloride [Moles/Vol] 101 mmol/L Normal 98-110 [facility] Comment on above: Performed By: #### L AC #### [place] [id number] CO2 [Moles/Vol] 29 mmol/L Normal 22-32 [facility] Comment on above: Performed By: #### L AC #### [place] [id number] Creatinine [Mass/Vol] 0.96 mg/dL Normal 0.50-1.20 [facility] Comment on above: Result Comment: Test ing performed on Usetrace analyzer using enzymatic creatinine methodology. Performed By: #### L AC #### [place] [id number] Electrolyte Balance 9.0 mEq/L Normal 4.0-15.0 [facility] Comment on above: Performed By: #### L AC #### [address] [address] Glucose [Mass/Vol] 108 mg/dL Normal 82-115 [facility] Comment on above: Performed By: #### L AC #### [place] [id number] Potassium [Moles/Vol] 3.6 mmol/L Normal 3.5-5.0 [facility] Comment on above: Performed By: #### L AC #### [place] [id number] Sodium [Moles/Vol] 139 mmol/L Normal 136-145 [facility] Comment on above: Performed By: #### L AC #### [place] [id number] Urea nitrogen [Mass/Vol] 29.0 mg/dL High 8.0-22.0 [facility] Comment on above: Performed By: #### L AC #### [place] [id number] CBCon 06-22-2025 Erythrocyte distribution width (RBC) [Ratio] 13.9 % Normal 11.5-15.5 [facility] Comment on above: Performed By: #### L AC #### [place] [id number] Hematocrit (Bld) [Volume fraction] 34.9 % Normal 34.0-46.0 [facility] Comment on above: Performed By: #### L AC #### [place] [address] Hgb 11.5 G/dL Low 12.0-16.0 [facility] Comment on above: Performed By: #### L AC #### [place] [id number] MCH (RBC) [Entitic mass] 29.2 pg Normal 27.0-33.0 [facility] Comment on above: Performed By: #### L AC #### [place] [id number] MCHC 32.9 G/dL Normal 32.0-36.0 [facility] Comment on above: Performed By: #### L AC #### [place] [id number] MCV (RBC) [Entitic vol] 88.6 fL Normal 80.0-99.0 [facility] Comment on above: Performed By: #### L AC #### [place] [address] Platelet 316 10 3/mcL Normal 150-450 [facility] Comment on above: Performed By: #### L AC #### [place] [address] Platelet mean volume (Bld) [Entitic vol] 8.0 fL Normal 6.6-10.5 [facility] Comment on above: Performed By: #### L AC #### [place] [address] RBC 3.94 10 6/mcL Low 4.10-5.30 [facility] Comment on above: Performed By: #### L AC #### [place] [address] WBC 7.5 10 3/mcL Normal 4.5-10.8 [facility] Comment on above: Performed By: #### L AC #### [place] [address] MGon 06-22-2025 Magnesium [Mass/Vol] 2.1 mg/dL Normal 1.6-2.4 [facility] Comment on above: Performed By: #### L AC #### [place] [address] .Auto Diffon 06-21-2025 Basophil, Absolute 0.1 10 3/mcL Normal 0.0-0.3 [facility] Comment on above: Performed By: #### B G #### [place] [id number] Basophils/100 WBC (Bld) 0.7 % Normal 0.0-2.5 [facility] Comment on above: Performed By: #### B G #### [place] [id number] Eosinophil, Absolute 0.1 10 3/mcL Normal 0.0-0.7 [facility] Comment on above: Performed By: #### B G #### [facility] [address] [place] [address] Eosinophils/100 WBC (Bld) 0.8 % Normal 0.0-6.0 [facility] Comment on above: Performed By: #### B G #### [facility] [address] [place] [address] Lymphocyte, Absolute 2.8 10 3/mcL Normal 0.9-4.3 [facility] Comment on above: Performed By: #### B G #### [address] [address] Lymphocytes/100 WBC (Bld) 30.7 % Normal 20.0-40.0 [facility] Comment on above: Performed By: #### B G #### [address] [address] Monocyte, Absolute 1.0 10 3/mcL Normal 0.1-1.4 [facility] Comment on above: Performed By: #### B G #### [address] [address] Monocytes/100 WBC (Bld) 11.1 % Normal 2.0-13.0 [facility] Comment on above: Performed By: #### B G #### [address] [address] Neutrophils/100 WBC (Bld) 56.7 % Normal 50.0-75.0 [facility] Comment on above: Performed By: #### B G #### [address] [address] .GFRon 06-21-2025 Estimated Glomerular Filtration Rate 72 ml/min/1.73sqm Normal [facility] Comment on above: Result Comment: [...] ADIFF, ANEU, APTT, CMP, HFP, GFR #### [address] [address] .NEUABSon 06-21-2025 Neutrophil, Absolute 5.1 10 3/mcL Normal 2.3-8.1 [facility] Comment on above: Performed By: #### B G #### [address] [address] APTTon 06-21-2025 aPTT Coag (Bld) [Time] 133.5 s Criticall y abnormal 25.0-35.0 [facility] Comment on above: Order Comment: [place] to nurse and they were not expecting results that were given from specimen.DH. Result Comment: For Heparin anticoagulation therapy, the recommended therapeutic range is: 54-77 seconds (APTT Correlation with Anti-Xa therapeutic range of 0.3-0.7 units/ml). PLEASE REFERENCE THE PHARMACY PROTOCOL FOR DOSING. Performed By: #### D RUGS #### [address] [address] aPTT Coag (Bld) [Time] 35.0 s Normal 25.0-35.0 [facility] Comment on above: Result Comment: For Heparin anticoagulation therapy, the recommended therapeutic range is: 54-77 seconds (APTT Correlation with Anti-Xa therapeutic range of 0.3-0.7 units/ml). PLEASE REFERENCE THE PHARMACY PROTOCOL FOR DOSING. Performed By: #### C BC, ADIFF, ANEU, APTT, CMP, HFP, GFR #### [address] [address] aPTT Coag (Bld) [Time] 46.2 s High 25.0-35.0 [facility] Comment on above: Result Comment: For Heparin anticoagulation therapy, the recommended therapeutic range is: 54-77 seconds (APTT Correlation with Anti-Xa therapeutic range of 0.3-0.7 units/ml). PLEASE REFERENCE THE PHARMACY PROTOCOL FOR DOSING. Performed By: #### A PTT #### [address] [address] BMPon 06-21-2025 BUN/Creatinine Ratio 27.9 ratio High 10.0-22.0 [facility] Comment on above: Performed By: #### C BC, ADIFF, ANEU, APTT, CMP, HFP, GFR #### [place] [id number] Calcium [Mass/Vol] 9.0 mg/dL Normal 8.7-10.4 [facility] Comment on above: Performed By: #### C BC, ADIFF, ANEU, APTT, CMP, HFP, GFR #### [place] [id number] Chloride [Moles/Vol] 100 mmol/L Normal 98-110 [facility] Comment on above: Performed By: #### C BC, ADIFF, ANEU, APTT, CMP, HFP, GFR #### [place] [id number] CO2 [Moles/Vol] 30 mmol/L Normal 22-32 [facility] Comment on above: Performed By: #### C BC, ADIFF, ANEU, APTT, CMP, HFP, GFR #### [place] [id number] Creatinine [Mass/Vol] 0.86 mg/dL Normal 0.50-1.20 [facility] Comment on above: Result Comment: Test ing performed on Usetrace analyzer using enzymatic creatinine methodology. Performed By: #### C BC, ADIFF, ANEU, APTT, CMP, HFP, GFR #### [place] [id number] Electrolyte Balance 10.0 mEq/L Normal 4.0-15.0 [facility] Comment on above: Performed By: #### C BC, ADIFF, ANEU, APTT, CMP, HFP, GFR #### [place] [id number] Glucose [Mass/Vol] 91 mg/dL Normal 82-115 [facility] Comment on above: Performed By: #### C BC, ADIFF, ANEU, APTT, CMP, HFP, GFR #### [place] [id number] Potassium [Moles/Vol] 3.6 mmol/L Normal 3.5-5.0 [facility] Comment on above: Performed By: #### C BC, ADIFF, ANEU, APTT, CMP, HFP, GFR #### [place] [id number] Sodium [Moles/Vol] 140 mmol/L Normal 136-145 [facility] Comment on above: Performed By: #### C BC, ADIFF, ANEU, APTT, CMP, HFP, GFR #### [place] [id number] Urea nitrogen [Mass/Vol] 24.0 mg/dL High 8.0-22.0 [facility] Comment on above: Performed By: #### C BC, ADIFF, ANEU, APTT, CMP, HFP, GFR #### [place] [id number] CBCon 06-21-2025 Erythrocyte distribution width (RBC) [Ratio] 14.2 % Normal 11.5-15.5 [facility] Comment on above: Performed By: #### B G #### [place] [address] Hematocrit (Bld) [Volume fraction] 35.4 % Normal 34.0-46.0 [facility] Comment on above: Performed By: #### B G #### [place] [address] Hgb 11.8 G/dL Low 12.0-16.0 [facility] Comment on above: Performed By: #### B G #### [place] [id number] MCH (RBC) [Entitic mass] 29.0 pg Normal 27.0-33.0 [facility] Comment on above: Performed By: #### B G #### [place] [address] MCHC 33.4 G/dL Normal 32.0-36.0 [facility] Comment on above: Performed By: #### B G #### [place] [id number] MCV (RBC) [Entitic vol] 87.1 fL Normal 80.0-99.0 [facility] Comment on above: Performed By: #### B G #### [place] [address] Platelet 329 10 3/mcL Normal 150-450 [facility] Comment on above: Performed By: #### B G #### [place] [address] Platelet mean volume (Bld) [Entitic vol] 8.6 fL Normal 6.6-10.5 [facility] Comment on above: Performed By: #### B G #### [place] [address] RBC 4.07 10 6/mcL Low 4.10-5.30 [facility] Comment on above: Performed By: #### B G #### [place] [address] WBC 9.0 10 3/mcL Normal 4.5-10.8 [facility] Comment on above: Performed By: #### B G #### [place] [address] LABORATORYOrdered By: Mirtha Bennett on 06-21-2025 Glucose [Mass/Vol] 94 mg/dL Normal 82 - 115 mg/dL [facility] MGon 06-21-2025 Magnesium [Mass/Vol] 2.4 mg/dL Normal 1.6-2.4 [facility] Comment on above: Performed By: #### C BC, ADIFF, ANEU, APTT, CMP, HFP, GFR #### [place] [id number] .Auto Diffon 06-20-2025 Basophil, Absolute 0.0 10 3/mcL Normal 0.0-0.3 [facility] Comment on above: Performed By: #### L AC #### [place] [address] Basophils/100 WBC (Bld) 0.2 % Normal 0.0-2.5 [facility] Comment on above: Performed By: #### L AC #### [address] [address] Eosinophil, Absolute 0.0 10 3/mcL Normal 0.0-0.7 [facility] Comment on above: Performed By: #### L AC #### [address] [address] Eosinophils/100 WBC (Bld) 0.0 % Normal 0.0-6.0 [facility] Comment on above: Performed By: #### L AC #### [address] [address] Lymphocyte, Absolute 0.9 10 3/mcL Normal 0.9-4.3 [facility] Comment on above: Performed By: #### L AC #### [address] [address] Lymphocytes/100 WBC (Bld) 14.5 % Low 20.0-40.0 [facility] Comment on above: Performed By: #### L AC #### [address] [address] Monocyte, Absolute 0.5 10 3/mcL Normal 0.1-1.4 [facility] Comment on above: Performed By: #### L AC #### [address] [address] Monocytes/100 WBC (Bld) 7.8 % Normal 2.0-13.0 [facility] Comment on above: Performed By: #### L AC #### [address] [address] Neutrophils/100 WBC (Bld) 77.5 % High 50.0-75.0 [facility] Comment on above: Performed By: #### L AC #### [address] [address] .GFRon 06-20-2025 Estimated Glomerular Filtration Rate 53 ml/min/1.73sqm Normal [facility] Comment on above: Result Comment: [...] results. Performed By: #### D RUGS #### [address] [address] .NEUABSon 06-20-2025 Neutrophil, Absolute 5.0 10 3/mcL Normal 2.3-8.1 [facility] Comment on above: Performed By: #### L AC #### [place] [address] APTTon 06-20-2025 aPTT Coag (Bld) [Time] 49.7 s High 25.0-35.0 [facility] Comment on above: Result Comment: Resu lts verified by repeat analysis. - [id number] - 06/20/25, 6:34 PM For Heparin anticoagulation therapy, the recommended therapeutic range is: 54-77 seconds (APTT Correlation with Anti-Xa therapeutic range of 0.3-0.7 units/ml). PLEASE REFERENCE THE PHARMACY PROTOCOL FOR DOSING. Performed By: #### L AC #### [place] [address] aPTT Coag (Bld) [Time] 73.1 s High 25.0-35.0 [facility] Comment on above: Result Comment: For Heparin anticoagulation therapy, the recommended therapeutic range is: 54-77 seconds (APTT Correlation with Anti-Xa therapeutic range of 0.3-0.7 units/ml). PLEASE REFERENCE THE PHARMACY PROTOCOL FOR DOSING. Performed By: #### A PTT ####[place] [address] aPTT Coag (Bld) [Time] 67.1 s High 25.0-35.0 [facility] Comment on above: Result Comment: For Heparin anticoagulation therapy, the recommended therapeutic range is: 54-77 seconds (APTT Correlation with Anti-Xa therapeutic range of 0.3-0.7 units/ml). PLEASE REFERENCE THE PHARMACY PROTOCOL FOR DOSING. Performed By: #### A PTT ####[address] [address] BMPon 06-20-2025 BUN/Creatinine Ratio 37.8 ratio High 10.0-22.0 [facility] Comment on above: Performed By: #### L AC #### [address] [address] Calcium [Mass/Vol] 8.9 mg/dL Normal 8.7-10.4 [facility] Comment on above: Performed By: #### L AC #### [address] [address] Chloride [Moles/Vol] 98 mmol/L Normal 98-110 [facility] Comment on above: Performed By: #### L AC #### [address] [address] CO2 [Moles/Vol] 30 mmol/L Normal 22-32 [facility] Comment on above: Performed By: #### L AC #### [place] [id number] Creatinine [Mass/Vol] 1.11 mg/dL Normal 0.50-1.20 [facility] Comment on above: Result Comment: Test ing performed on Usetrace analyzer using enzymatic creatinine methodology. Performed By: #### L AC #### [address] [address] Electrolyte Balance 11.0 mEq/L Normal 4.0-15.0 [facility] Comment on above: Performed By: #### L AC #### [place] [id number] Glucose [Mass/Vol] 116 mg/dL High 82-115 [facility] Comment on above: Performed By: #### L AC #### [place] [id number] Potassium [Moles/Vol] 3.5 mmol/L Normal 3.5-5.0 [facility] Comment on above: Performed By: #### L AC #### [place] [id number] Sodium [Moles/Vol] 139 mmol/L Normal 136-145 [facility] Comment on above: Performed By: #### L AC #### [place] [id number] Urea nitrogen [Mass/Vol] 42.0 mg/dL High 8.0-22.0 [facility] Comment on above: Performed By: #### L AC #### [place] [id number] CBCon 06-20-2025 Erythrocyte distribution width (RBC) [Ratio] 14.1 % Normal 11.5-15.5 [facility] Comment on above: Performed By: #### L AC #### [place] [id number] Hematocrit (Bld) [Volume fraction] 33.0 % Low 34.0-46.0 [facility] Comment on above: Performed By: #### L AC #### [place] [id number] Hgb 11.1 G/dL Low 12.0-16.0 [facility] Comment on above: Performed By: #### L AC #### [place] [id number] MCH (RBC) [Entitic mass] 29.3 pg Normal 27.0-33.0 [facility] Comment on above: Performed By: #### L AC #### [place] [id number] MCHC 33.6 G/dL Normal 32.0-36.0 [facility] Comment on above: Performed By: #### L AC #### [place] [id number] MCV (RBC) [Entitic vol] 87.2 fL Normal 80.0-99.0 [facility] Comment on above: Performed By: #### L AC #### [place] [id number] Platelet 290 10 3/mcL Normal 150-450 [facility] Comment on above: Performed By: #### L AC #### [address] [address] Platelet mean volume (Bld) [Entitic vol] 8.2 fL Normal 6.6-10.5 [facility] Comment on above: Performed By: #### L AC #### [address] [address] RBC 3.78 10 6/mcL Low 4.10-5.30 [facility] Comment on above: Performed By: #### L AC #### [address] [address] WBC 6.4 10 3/mcL Normal 4.5-10.8 [facility] Comment on above: Performed By: #### L AC #### [place] [id number] MGon 06-20-2025 Magnesium [Mass/Vol] 2.5 mg/dL High 1.6-2.4 [facility] Comment on above: Performed By: #### L AC #### [address] [address] .Auto Diffon 06-19-2025 Basophil, Absolute 0.0 10 3/mcL Normal 0.0-0.3 [facility] Comment on above: Performed By: #### C BC, ADIFF, ANEU, APTT, CMP, HFP, GFR #### [address] [address] Basophils/100 WBC (Bld) 0.1 % Normal 0.0-2.5 [facility] Comment on above: Performed By: #### C BC, ADIFF, ANEU, APTT, CMP, HFP, GFR #### [address] [address] Eosinophil, Absolute 0.0 10 3/mcL Normal 0.0-0.7 [facility] Comment on above: Performed By: #### C BC, ADIFF, ANEU, APTT, CMP, HFP, GFR #### [address] [address] Eosinophils/100 WBC (Bld) 0.0 % Normal 0.0-6.0 [facility] Comment on above: Performed By: #### C BC, ADIFF, ANEU, APTT, CMP, HFP, GFR #### [place] [id number] [place] [address] Lymphocyte, Absolute 0.7 10 3/mcL Low 0.9-4.3 [facility] Comment on above: Performed By: #### C BC, ADIFF, ANEU, APTT, CMP, HFP, GFR #### [address] [address] Lymphocytes/100 WBC (Bld) 12.6 % Low 20.0-40.0 [facility] Comment on above: Performed By: #### C BC, ADIFF, ANEU, APTT, CMP, HFP, GFR #### [address] [address] Monocyte, Absolute 0.3 10 3/mcL Normal 0.1-1.4 [facility] Comment on above: Performed By: #### C BC, ADIFF, ANEU, APTT, CMP, HFP, GFR #### [address] [address] Monocytes/100 WBC (Bld) 5.8 % Normal 2.0-13.0 [facility] Comment on above: Performed By: #### C BC, ADIFF, ANEU, APTT, CMP, HFP, GFR #### [address] [address] Neutrophils/100 WBC (Bld) 81.5 % High 50.0-75.0 [facility] Comment on above: Performed By: #### C BC, ADIFF, ANEU, APTT, CMP, HFP, GFR #### [address] [address] .GFRon 06-19-2025 Estimated Glomerular Filtration Rate 52 ml/min/1.73sqm Normal [facility] Comment on above: Result Comment: [...] ADIFF, ANEU, APTT, CMP, HFP, GFR #### [address] [address] Estimated Glomerular Filtration Rate 71 ml/min/1.73sqm Normal [facility] Comment on above: Result Comment: [...] results. Performed By: #### L AC #### [address] [address] .NEUABSon 06-19-2025 Neutrophil, Absolute 4.7 10 3/mcL Normal 2.3-8.1 [facility] Comment on above: Performed By: #### L AC #### [address] [address] APTTon 06-19-2025 aPTT Coag (Bld) [Time] 52.6 s High 25.0-35.0 [facility] Comment on above: Result Comment: For Heparin anticoagulation therapy, the recommended therapeutic range is: 54-77 seconds (APTT Correlation with Anti-Xa therapeutic range of 0.3-0.7 units/ml). PLEASE REFERENCE THE PHARMACY PROTOCOL FOR DOSING. Performed By: #### A PTT #### [address] [address] aPTT Coag (Bld) [Time] 73.6 s High 25.0-35.0 [facility] Comment on above: Result Comment: For Heparin anticoagulation therapy, the recommended therapeutic range is: 54-77 seconds (APTT Correlation with Anti-Xa therapeutic range of 0.3-0.7 units/ml). PLEASE REFERENCE THE PHARMACY PROTOCOL FOR DOSING. Performed By: #### A PTT #### [place] [id number] aPTT Coag (Bld) [Time] 65.1 s High 25.0-35.0 [facility] Comment on above: Result Comment: For Heparin anticoagulation therapy, the recommended therapeutic range is: 54-77 seconds (APTT Correlation with Anti-Xa therapeutic range of 0.3-0.7 units/ml). PLEASE REFERENCE THE PHARMACY PROTOCOL FOR DOSING. Performed By: #### L AC #### [address] [address] BMPon 06-19-2025 BUN/Creatinine Ratio 34.5 ratio High 10.0-22.0 [facility] Comment on above: Performed By: #### C BC, ADIFF, ANEU, APTT, CMP, HFP, GFR #### [address] [address] Calcium [Mass/Vol] 8.6 mg/dL Low 8.7-10.4 [facility] Comment on above: Performed By: #### C BC, ADIFF, ANEU, APTT, CMP, HFP, GFR #### [address] [address] Chloride [Moles/Vol] 99 mmol/L Normal 98-110 [facility] Comment on above: Performed By: #### C BC, ADIFF, ANEU, APTT, CMP, HFP, GFR #### [address] [address] CO2 [Moles/Vol] 29 mmol/L Normal 22-32 [facility] Comment on above: Performed By: #### C BC, ADIFF, ANEU, APTT, CMP, HFP, GFR #### [address] [address] Creatinine [Mass/Vol] 1.13 mg/dL Normal 0.50-1.20 [facility] Comment on above: Result Comment: Test ing performed on Usetrace analyzer using enzymatic creatinine methodology. Performed By: #### C BC, ADIFF, ANEU, APTT, CMP, HFP, GFR #### [address] [address] Electrolyte Balance 12.0 mEq/L Normal 4.0-15.0 [facility] Comment on above: Performed By: #### C BC, ADIFF, ANEU, APTT, CMP, HFP, GFR #### [address] [address] Glucose [Mass/Vol] 156 mg/dL High 82-115 [facility] Comment on above: Performed By: #### C BC, ADIFF, ANEU, APTT, CMP, HFP, GFR #### [place] [id number] Potassium [Moles/Vol] 3.6 mmol/L Normal 3.5-5.0 [facility] Comment on above: Performed By: #### C BC, ADIFF, ANEU, APTT, CMP, HFP, GFR #### [address] [address] Sodium [Moles/Vol] 140 mmol/L Normal 136-145 [facility] Comment on above: Performed By: #### C BC, ADIFF, ANEU, APTT, CMP, HFP, GFR #### [address] [address] Urea nitrogen [Mass/Vol] 39.0 mg/dL High 8.0-22.0 [facility] Comment on above: Performed By: #### C BC, ADIFF, ANEU, APTT, CMP, HFP, GFR #### [address] [address] CBCon 06-19-2025 Erythrocyte distribution width (RBC) [Ratio] 14.3 % Normal 11.5-15.5 [facility] Comment on above: Performed By: #### C BC, ADIFF, ANEU, APTT, CMP, HFP, GFR #### [place] [address] Hematocrit (Bld) [Volume fraction] 33.7 % Low 34.0-46.0 [facility] Comment on above: Performed By: #### C BC, ADIFF, ANEU, APTT, CMP, HFP, GFR #### [place] [address] Hgb 11.3 G/dL Low 12.0-16.0 [facility] Comment on above: Performed By: #### C BC, ADIFF, ANEU, APTT, CMP, HFP, GFR #### [place] [address] MCH (RBC) [Entitic mass] 29.4 pg Normal 27.0-33.0 [facility] Comment on above: Performed By: #### C BC, ADIFF, ANEU, APTT, CMP, HFP, GFR #### [place] [address] MCHC 33.6 G/dL Normal 32.0-36.0 [facility] Comment on above: Performed By: #### C BC, ADIFF, ANEU, APTT, CMP, HFP, GFR #### [place] [address] MCV (RBC) [Entitic vol] 87.4 fL Normal 80.0-99.0 [facility] Comment on above: Performed By: #### C BC, ADIFF, ANEU, APTT, CMP, HFP, GFR #### [place] [address] Platelet 272 10 3/mcL Normal 150-450 [facility] Comment on above: Performed By: #### C BC, ADIFF, ANEU, APTT, CMP, HFP, GFR #### [place] [address] Platelet mean volume (Bld) [Entitic vol] 7.9 fL Normal 6.6-10.5 [facility] Comment on above: Performed By: #### C BC, ADIFF, ANEU, APTT, CMP, HFP, GFR #### [place] [address] RBC 3.86 10 6/mcL Low 4.10-5.30 [facility] Comment on above: Performed By: #### C BC, ADIFF, ANEU, APTT, CMP, HFP, GFR #### [place] [address] WBC 5.8 10 3/mcL Normal 4.5-10.8 [facility] Comment on above: Performed By: #### C BC, ADIFF, ANEU, APTT, CMP, HFP, GFR #### [place] [address] CMPon 06-19-2025 Albumin Level 2.9 G/dL Low 3.2-4.8 [facility] Comment on above: Performed By: #### L AC #### [place] [address] Albumin/Globulin [Mass ratio] 0.9 {ratio} Normal 0.9-1.6 [facility] Comment on above: Performed By: #### L AC #### [place] [address] ALP [Catalytic activity/Vol] 76 U/L Normal 38-126 [facility] Comment on above: Performed By: #### L AC #### [place] [address] ALT [Catalytic activity/Vol] 57 U/L High 10-49 [facility] Comment on above: Performed By: #### L AC #### [place] [address] AST [Catalytic activity/Vol] 36 U/L High 8-34 [facility] Comment on above: Performed By: #### L AC #### [place] [address] Bili Total 0.50 mg/dL Normal 0.20-1.20 [facility] Comment on above: Result Comment: Use of this assay is not recommended for patients undergoing treatment with eltrombopag due to the potential for falsely elevated results. Performed By: #### L AC #### [place] [id number] BUN/Creatinine Ratio 36.8 ratio High 10.0-22.0 [facility] Comment on above: Performed By: #### L AC #### [address] [address] Calcium [Mass/Vol] 8.8 mg/dL Normal 8.7-10.4 [facility] Comment on above: Performed By: #### L AC #### [address] [address] Chloride [Moles/Vol] 105 mmol/L Normal 98-110 [facility] Comment on above: Performed By: #### L AC #### [address] [address] CO2 [Moles/Vol] 32 mmol/L Normal 22-32 [facility] Comment on above: Performed By: #### L AC #### [place] [id number] Creatinine [Mass/Vol] 0.87 mg/dL Normal 0.50-1.20 [facility] Comment on above: Result Comment: Test ing performed on Usetrace analyzer using enzymatic creatinine methodology. Performed By: #### L AC #### [address] [address] Electrolyte Balance 12.0 mEq/L Normal 4.0-15.0 [facility] Comment on above: Performed By: #### L AC #### [place] [id number] Globulin 3.2 G/dL Normal 2.5-4.2 [facility] Comment on above: Performed By: #### L AC #### [address] [address] Glucose [Mass/Vol] 139 mg/dL High 82-115 [facility] Comment on above: Performed By: #### L AC #### [place] [id number] Potassium [Moles/Vol] 3.7 mmol/L Normal 3.5-5.0 [facility] Comment on above: Performed By: #### L AC #### [address] [address] Sodium [Moles/Vol] 149 mmol/L High 136-145 [facility] Comment on above: Performed By: #### L AC #### [place] [id number] Total Protein 6.1 G/dL Normal 5.7-8.2 [facility] Comment on above: Performed By: #### L AC #### [place] [id number] Urea nitrogen [Mass/Vol] 32.0 mg/dL High 8.0-22.0 [facility] Comment on above: Performed By: #### L AC #### [address] [address] HFPon 06-19-2025 Bili Indirect 0.4 mg/dL Normal 0.1-10.0 [facility] Comment on above: Performed By: #### L AC #### [place] [address] Bili Direct 0.1 mg/dL Normal 0.0-0.4 [facility] Comment on above: Result Comment: Use of this assay is not recommended for patients undergoing treatment with eltrombopag due to the potential for falsely elevated results. Performed By: #### L AC #### [place] [address] LABORATORYOrdered By: SYSTEM SYSTEM on 06-19-2025 Bili [...] 06/19/2025 8:06:42 AM Ordering Provider: ADRIANA Soto [facility] .Auto Diffon 06-18-2025 Basophil, Absolute 0.0 10 3/mcL Normal 0.0-0.3 [facility] Comment on above: Performed By: #### B G #### [facility] [address] [place] [address] Basophils/100 WBC (Bld) 0.1 % Normal 0.0-2.5 [facility] Comment on above: Performed By: #### B G #### [facility] [address] [place] [address] Eosinophil, Absolute 0.0 10 3/mcL Normal 0.0-0.7 [facility] Comment on above: Performed By: #### B G #### [facility] [address] [place] [address] Eosinophils/100 WBC (Bld) 0.0 % Normal 0.0-6.0 [facility] Comment on above: Performed By: #### B G #### [address] [address] Lymphocyte, Absolute 0.6 10 3/mcL Low 0.9-4.3 [facility] Comment on above: Performed By: #### B G #### [address] [address] Lymphocytes/100 WBC (Bld) 8.9 % Low 20.0-40.0 [facility] Comment on above: Performed By: #### B G #### [address] [address] Monocyte, Absolute 0.3 10 3/mcL Normal 0.1-1.4 [facility] Comment on above: Performed By: #### B G #### [address] [address] Monocytes/100 WBC (Bld) 4.4 % Normal 2.0-13.0 [facility] Comment on above: Performed By: #### B G #### [address] [address] Neutrophils/100 WBC (Bld) 86.6 % High 50.0-75.0 [facility] Comment on above: Performed By: #### B G #### [address] [address] .GFRon 06-18-2025 Estimated Glomerular Filtration Rate 59 ml/min/1.73sqm Normal [facility] Comment on above: Result Comment: [...] results. Performed By: #### B G #### [place] [address] .NEUABSon 06-18-2025 Neutrophil, Absolute 6.0 10 3/mcL Normal 2.3-8.1 [facility] Comment on above: Performed By: #### B G #### [place] [address] APTTon 06-18-2025 aPTT Coag (Bld) [Time] 68.1 s High 25.0-35.0 [facility] Comment on above: Result Comment: For Heparin anticoagulation therapy, the recommended therapeutic range is: 54-77 seconds (APTT Correlation with Anti-Xa therapeutic range of 0.3-0.7 units/ml). PLEASE REFERENCE THE PHARMACY PROTOCOL FOR DOSING. Performed By: #### A PTT ####[place] [address] aPTT Coag (Bld) [Time] 40.6 s High 25.0-35.0 [facility] Comment on above: Result Comment: For Heparin anticoagulation therapy, the recommended therapeutic range is: 54-77 seconds (APTT Correlation with Anti-Xa therapeutic range of 0.3-0.7 units/ml). PLEASE REFERENCE THE PHARMACY PROTOCOL FOR DOSING. Performed By: #### D RUGS #### [place] [address] aPTT Coag (Bld) [Time] 51.7 s High 25.0-35.0 [facility] Comment on above: Result Comment: For Heparin anticoagulation therapy, the recommended therapeutic range is: 54-77 seconds (APTT Correlation with Anti-Xa therapeutic range of 0.3-0.7 units/ml). PLEASE REFERENCE THE PHARMACY PROTOCOL FOR DOSING. Performed By: #### L AC #### [address] [address] [facility] 06-18-2025 Base excess Calc (Bld) [Moles/Vol] 2.9 mmol/L Normal [facility] Comment on above: Performed By: #### B G #### [address] [address] CO2 [Moles/Vol] 27.8 mmol/L Normal 22.0-30.0 [facility] Comment on above: Performed By: #### B G #### [place] [phone] HCO3 (Bld) [Moles/Vol] 26.6 mmol/L Normal 21.0-29.0 [facility] Comment on above: Performed By: #### B G #### [place] [id number] Oxygen (Bld) [Partial pressure] 98.2 mm[Hg] Normal 74.0-108.0 [facility] Comment on above: Performed By: #### B G #### [place] [id number] Oxygen saturation in Blood 97.1 % High 92.0-96.0 [facility] Comment on above: Performed By: #### B G #### [place] [id number] pCO2 37.4 mmHg Normal 32.0-46.0 [facility] Comment on above: Performed By: #### B G #### [place] [id number] pH (Bld) 7.470 [pH] High 7.380-7.460 [facility] Comment on above: Performed By: #### B G #### [address] [address] [facility] BUN/Creatinine Ratio 31.4 ratio High 10.0-22.0 [facility] Comment on above: Performed By: #### B G #### [place] [id number] Calcium [Mass/Vol] 8.8 mg/dL Normal 8.7-10.4 [facility] Comment on above: Performed By: #### B G #### [address] [address] Chloride [Moles/Vol] 105 mmol/L Normal 98-110 [facility] Comment on above: Performed By: #### B G #### [address] [address] CO2 [Moles/Vol] 31 mmol/L Normal 22-32 [facility] Comment on above: Performed By: #### B G #### [address] [address] Creatinine [Mass/Vol] 1.02 mg/dL Normal 0.50-1.20 [facility] Comment on above: Result Comment: Test ing performed on Usetrace analyzer using enzymatic creatinine methodology. Performed By: #### B G #### [address] [address] Electrolyte Balance 7.0 mEq/L Normal 4.0-15.0 [facility] Comment on above: Performed By: #### B G #### [address] [address] Glucose [Mass/Vol] 145 mg/dL High 82-115 [facility] Comment on above: Performed By: #### B G #### [address] [address] Potassium [Moles/Vol] 3.6 mmol/L Normal 3.5-5.0 [facility] Comment on above: Performed By: #### B G #### [address] [address] Sodium [Moles/Vol] 143 mmol/L Normal 136-145 [facility] Comment on above: Performed By: #### B G #### [address] [address] Urea nitrogen [Mass/Vol] 32.0 mg/dL High 8.0-22.0 [facility] Comment on above: Performed By: #### B G #### [address] [address] CAIONon 06-18-2025 Calcium Ionized 1.09 mmol/L Low 1.12-1.32 [facility] Comment on above: Performed By: #### B G #### [address] [address] CBCon 06-18-2025 Erythrocyte distribution width (RBC) [Ratio] 14.4 % Normal 11.5-15.5 [facility] Comment on above: Performed By: #### B G #### [place] [id number] Hematocrit (Bld) [Volume fraction] 33.0 % Low 34.0-46.0 [facility] Comment on above: Performed By: #### B G #### [place] [address] Hgb 11.0 G/dL Low 12.0-16.0 [facility] Comment on above: Performed By: #### B G #### [place] [address] MCH (RBC) [Entitic mass] 29.4 pg Normal 27.0-33.0 [facility] Comment on above: Performed By: #### B G #### [place] [address] MCHC 33.4 G/dL Normal 32.0-36.0 [facility] Comment on above: Performed By: #### B G #### [place] [id number] MCV (RBC) [Entitic vol] 88.0 fL Normal 80.0-99.0 [facility] Comment on above: Performed By: #### B G #### [place] [id number] Platelet 268 10 3/mcL Normal 150-450 [facility] Comment on above: Performed By: #### B G #### [place] [id number] Platelet mean volume (Bld) [Entitic vol] 7.7 fL Normal 6.6-10.5 [facility] Comment on above: Performed By: #### B G #### [facility] [address] [place] [address] RBC 3.75 10 6/mcL Low 4.10-5.30 [facility] Comment on above: Performed By: #### B G #### [facility] [address] [place] [address] WBC 6.9 10 3/mcL Normal 4.5-10.8 [facility] Comment on above: Performed By: #### B G #### [facility] [address] [place] [address] LABORATORYOrdered By: Shelbie freitas on 06-18-2025 Blood Glucose Testing Reason Routine (06/18/25 11:16 PM) [facility] Glucose [Mass/Vol] 137 mg/dL High 82 - 115 mg/dL [facility] Blood Glucose Testing Reason Routine (06/18/25 7:15 PM) [facility] Glucose [Mass/Vol] 151 mg/dL High 82 - 115 mg/dL [facility] Blood Glucose Testing Reason Routine (06/18/25 4:00 PM) [facility] LABORATORYOrdered By: Rohit sarabia on 06-18-2025 [...] 06-18-2025 Magnesium [Mass/Vol] 2.5 mg/dL High 1.6-2.4 [facility] Comment on above: Performed By: #### B G #### [address] [address] XR CHEST 1 VIEWon 06-18-2025 XR CHEST [...] 06/18/2025 7:12:41 AM Ordering Provider: ARIAS Soto [facility] .Auto Diffon 06-17-2025 Basophil, Absolute 0.1 10 3/mcL Normal 0.0-0.3 [facility] Comment on above: Performed By: #### L AC #### [address] [address] Basophils/100 WBC (Bld) 0.9 % Normal 0.0-2.5 [facility] Comment on above: Performed By: #### L AC #### [address] [address] Eosinophil, Absolute 0.1 10 3/mcL Normal 0.0-0.7 [facility] Comment on above: Performed By: #### L AC #### [address] [address] Eosinophils/100 WBC (Bld) 0.8 % Normal 0.0-6.0 [facility] Comment on above: Performed By: #### L AC #### [facility] [address] [place] [address] Lymphocyte, Absolute 1.6 10 3/mcL Normal 0.9-4.3 [facility] Comment on above: Performed By: #### L AC #### [facility] [address] [place] [address] Lymphocytes/100 WBC (Bld) 17.8 % Low 20.0-40.0 [facility] Comment on above: Performed By: #### L AC #### [facility] [address] [place] [address] Monocyte, Absolute 0.7 10 3/mcL Normal 0.1-1.4 [facility] Comment on above: Performed By: #### L AC #### [address] [address] Monocytes/100 WBC (Bld) 8.1 % Normal 2.0-13.0 [facility] Comment on above: Performed By: #### L AC #### [address] [address] Neutrophils/100 WBC (Bld) 72.4 % Normal 50.0-75.0 [facility] Comment on above: Performed By: #### L AC #### [address] [address] .GFRon 06-17-2025 Estimated Glomerular Filtration Rate 57 ml/min/1.73sqm Normal [facility] Comment on above: Result Comment: [...] results. Performed By: #### L AC #### [address] [address] .NEUABSon 06-17-2025 Neutrophil, Absolute 6.5 10 3/mcL Normal 2.3-8.1 [facility] Comment on above: Performed By: #### L AC #### [place] [id number] APTTon 06-17-2025 aPTT Coag (Bld) [Time] 46.8 s High 25.0-35.0 [facility] Comment on above: Result Comment: For Heparin anticoagulation therapy, the recommended therapeutic range is: 54-77 seconds (APTT Correlation with Anti-Xa therapeutic range of 0.3-0.7 units/ml). PLEASE REFERENCE THE PHARMACY PROTOCOL FOR DOSING. Performed By: #### A PTT #### [place] [address] aPTT Coag (Bld) [Time] 40.2 s High 25.0-35.0 [facility] Comment on above: Result Comment: For Heparin anticoagulation therapy, the recommended therapeutic range is: 54-77 seconds (APTT Correlation with Anti-Xa therapeutic range of 0.3-0.7 units/ml). PLEASE REFERENCE THE PHARMACY PROTOCOL FOR DOSING. Performed By: #### A PTT #### [place] [address] aPTT Coag (Bld) [Time] 54.3 s High 25.0-35.0 [facility] Comment on above: Result Comment: For Heparin anticoagulation therapy, the recommended therapeutic range is: 54-77 seconds (APTT Correlation with Anti-Xa therapeutic range of 0.3-0.7 units/ml). PLEASE REFERENCE THE PHARMACY PROTOCOL FOR DOSING. Performed By: #### A PTT ####[place] [address] aPTT Coag (Bld) [Time] 71.7 s High 25.0-35.0 [facility] Comment on above: Result Comment: For Heparin anticoagulation therapy, the recommended therapeutic range is: 54-77 seconds (APTT Correlation with Anti-Xa therapeutic range of 0.3-0.7 units/ml). PLEASE REFERENCE THE PHARMACY PROTOCOL FOR DOSING. Performed By: #### A PTT ####[address] [address] BGon 06-17-2025 Base excess Calc (Bld) [Moles/Vol] 1.3 mmol/L Normal [facility] Comment on above: Performed By: #### L AC #### [place] [id number] CO2 [Moles/Vol] 26.5 mmol/L Normal 22.0-30.0 [facility] Comment on above: Performed By: #### L AC #### [address] [address] HCO3 (Bld) [Moles/Vol] 25.3 mmol/L Normal 21.0-29.0 [facility] Comment on above: Performed By: #### L AC #### [place] [id number] Oxygen (Bld) [Partial pressure] 104.6 mm[Hg] Normal 74.0-108.0 [facility] Comment on above: Performed By: #### L AC #### [place] [id number] Oxygen saturation in Blood 97.7 % High 92.0-96.0 [facility] Comment on above: Performed By: #### L AC #### [place] [id number] pCO2 38.0 mmHg Normal 32.0-46.0 [facility] Comment on above: Performed By: #### L AC #### [place] [id number] pH (Bld) 7.442 [pH] Normal 7.380-7.460 [facility] Comment on above: Performed By: #### L AC #### [address] [address] CBCon 06-17-2025 Erythrocyte distribution width (RBC) [Ratio] 14.0 % Normal 11.5-15.5 [facility] Comment on above: Performed By: #### L AC #### [place] [address] Hematocrit (Bld) [Volume fraction] 32.8 % Low 34.0-46.0 [facility] Comment on above: Performed By: #### L AC #### [place] [address] Hgb 10.9 G/dL Low 12.0-16.0 [facility] Comment on above: Performed By: #### L AC #### [place] [address] MCH (RBC) [Entitic mass] 29.4 pg Normal 27.0-33.0 [facility] Comment on above: Performed By: #### L AC #### [place] [address] MCHC 33.2 G/dL Normal 32.0-36.0 [facility] Comment on above: Performed By: #### L AC #### [place] [address] MCV (RBC) [Entitic vol] 88.5 fL Normal 80.0-99.0 [facility] Comment on above: Performed By: #### L AC #### [place] [address] Platelet 240 10 3/mcL Normal 150-450 [facility] Comment on above: Performed By: #### L AC #### [place] [address] Platelet mean volume (Bld) [Entitic vol] 7.5 fL Normal 6.6-10.5 [facility] Comment on above: Performed By: #### L AC #### [place] [address] RBC 3.71 10 6/mcL Low 4.10-5.30 [facility] Comment on above: Performed By: #### L AC #### [place] [id number] WBC 9.0 10 3/mcL Normal 4.5-10.8 [facility] Comment on above: Performed By: #### L AC #### [place] [address] [facility] 06-17-2025 Albumin Level 2.8 G/dL Low 3.2-4.8 [facility] Comment on above: Performed By: #### L AC #### [place] [id number] Albumin/Globulin [Mass ratio] 1.0 {ratio} Normal 0.9-1.6 [facility] Comment on above: Performed By: #### L AC #### [place] [address] ALP [Catalytic activity/Vol] 90 U/L Normal 38-126 [facility] Comment on above: Performed By: #### L AC #### [place] [id number] ALT [Catalytic activity/Vol] 85 U/L High 10-49 [facility] Comment on above: Performed By: #### L AC #### [place] [id number] AST [Catalytic activity/Vol] 97 U/L High 8-34 [facility] Comment on above: Performed By: #### L AC #### [place] [id number] Bili Total 0.40 mg/dL Normal 0.20-1.20 [facility] Comment on above: Result Comment: Use of this assay is not recommended for patients undergoing treatment with eltrombopag due to the potential for falsely elevated results. Performed By: #### L AC #### [place] [address] BUN/Creatinine Ratio 28.6 ratio High 10.0-22.0 [facility] Comment on above: Performed By: #### L AC #### [place] [id number] Calcium [Mass/Vol] 8.5 mg/dL Low 8.7-10.4 [facility] Comment on above: Performed By: #### L AC #### [place] [id number] Chloride [Moles/Vol] 103 mmol/L Normal 98-110 [facility] Comment on above: Performed By: #### L AC #### [address] [address] CO2 [Moles/Vol] 28 mmol/L Normal 22-32 [facility] Comment on above: Performed By: #### L AC #### [address] [address] Creatinine [Mass/Vol] 1.05 mg/dL Normal 0.50-1.20 [facility] Comment on above: Result Comment: Test ing performed on Usetrace analyzer using enzymatic creatinine methodology. Performed By: #### L AC #### [address] [address] Electrolyte Balance 8.0 mEq/L Normal 4.0-15.0 [facility] Comment on above: Performed By: #### L AC #### [address] [address] Globulin 2.8 G/dL Normal 2.5-4.2 [facility] Comment on above: Performed By: #### L AC #### [address] [address] Glucose [Mass/Vol] 106 mg/dL Normal 82-115 [facility] Comment on above: Performed By: #### L AC #### [address] [address] Potassium [Moles/Vol] 4.0 mmol/L Normal 3.5-5.0 [facility] Comment on above: Performed By: #### L AC #### [address] [address] Sodium [Moles/Vol] 139 mmol/L Normal 136-145 [facility] Comment on above: Performed By: #### L AC #### [address] [address] Total Protein 5.6 G/dL Low 5.7-8.2 [facility] Comment on above: Performed By: #### L AC #### [address] [address] Urea nitrogen [Mass/Vol] 30.0 mg/dL High 8.0-22.0 [facility] Comment on above: Performed By: #### L AC #### [place] [address] LABORATORYOrdered By: SYSTEM SYSTEM on 06-17-2025 Troponin I.cardiac DL <= 0.01 ng/mL [Mass/Vol] 713 ng/L High 0 - 34 ng/L ADM SS Comment on above: Interpretive Data: High Sensitive Troponin I Reference Ranges: Female: 0-34 ng/L Male: 0-54 ng/L Testing performed on [employer] IM analyzer using direct chemiluminescent technology. LABORATORYOrdered [...] 06-17-2025 Magnesium [Mass/Vol] 2.1 mg/dL Normal 1.6-2.4 [facility] Comment on above: Performed By: #### L AC #### [place] [address] TROPHSon 06-17-2025 High Sensitivity Troponin I 713 ng/L High 0-34 [facility] Comment on above: Result Comment: High Sensitive Troponin I Reference Ranges: Female: 0-34 ng/L Male: 0-54 ng/L Testing performed on [employer] analyzer using direct chemiluminescent technology. Performed By: #### C BC, ADIFF, ANEU, APTT, CMP, HFP, GFR #### [place] [address] XR CHEST 1 VIEWon 06-17-2025 XR CHEST [...] 06/17/2025 6:58:17 AM Ordering Provider: DEVIN Soto [facility] .Auto Diffon 06-16-2025 Basophil, Absolute 0.0 10 3/mcL Normal 0.0-0.3 [facility] Comment on above: Performed By: #### L AC #### [address] [address] Basophils/100 WBC (Bld) 0.2 % Normal 0.0-2.5 [facility] Comment on above: Performed By: #### L AC #### [address] [address] Eosinophil, Absolute 0.0 10 3/mcL Normal 0.0-0.7 [facility] Comment on above: Performed By: #### L AC #### [address] [address] Eosinophils/100 WBC (Bld) 0.0 % Normal 0.0-6.0 [facility] Comment on above: Performed By: #### L AC #### [address] [address] Lymphocyte, Absolute 0.8 10 3/mcL Low 0.9-4.3 [facility] Comment on above: Performed By: #### L AC #### [address] [address] Lymphocytes/100 WBC (Bld) 6.4 % Low 20.0-40.0 [facility] Comment on above: Performed By: #### L AC #### [address] [address] Monocyte, Absolute 0.5 10 3/mcL Normal 0.1-1.4 [facility] Comment on above: Performed By: #### L AC #### [address] [address] Monocytes/100 WBC (Bld) 4.3 % Normal 2.0-13.0 [facility] Comment on above: Performed By: #### L AC #### [address] [address] Neutrophils/100 WBC (Bld) 89.1 % High 50.0-75.0 [facility] Comment on above: Performed By: #### L AC #### [address] [address] Basophil, Absolute 0.0 10 3/mcL Normal 0.0-0.3 [facility] Comment on above: Performed By: #### L AC #### [address] [address] Basophils/100 WBC (Bld) 0.1 % Normal 0.0-2.5 [facility] Comment on above: Performed By: #### L AC #### [address] [address] Eosinophil, Absolute 0.0 10 3/mcL Normal 0.0-0.7 [facility] Comment on above: Performed By: #### L AC #### [address] [address] Eosinophils/100 WBC (Bld) 0.0 % Normal 0.0-6.0 [facility] Comment on above: Performed By: #### L AC #### [address] [address] Lymphocyte, Absolute 0.4 10 3/mcL Low 0.9-4.3 [facility] Comment on above: Performed By: #### L AC #### [address] [address] Lymphocytes/100 WBC (Bld) 1.9 % Low 20.0-40.0 [facility] Comment on above: Performed By: #### L AC #### [place] [address] [place] [address] Monocyte, Absolute 0.5 10 3/mcL Normal 0.1-1.4 [facility] Comment on above: Performed By: #### L AC #### [address] [address] Monocytes/100 WBC (Bld) 2.4 % Normal 2.0-13.0 [facility] Comment on above: Performed By: #### L AC #### [address] [address] Neutrophils/100 WBC (Bld) 95.6 % High 50.0-75.0 [facility] Comment on above: Performed By: #### L AC #### [address] [address] .GFRon 06-16-2025 Estimated Glomerular Filtration Rate 59 ml/min/1.73sqm [facility] Comment on above: Result Comment: Stages [...] results. Performed By: #### L AC #### [address] [address] .NEUABSon 06-16-2025 Neutrophil, Absolute 10.8 10 3/mcL High 2.3-8.1 [facility] Comment on above: Performed By: #### L AC #### [address] [address] Neutrophil, Absolute 19.3 10 3/mcL High 2.3-8.1 [facility] Comment on above: Performed By: #### L AC #### [address] [address] APTTon 06-16-2025 aPTT Coag (Bld) [Time] 33.8 s Normal 25.0-35.0 [facility] Comment on above: Result Comment: For Heparin anticoagulation therapy, the recommended therapeutic range is: 54-77 seconds (APTT Correlation with Anti-Xa therapeutic range of 0.3-0.7 units/ml). PLEASE REFERENCE THE PHARMACY PROTOCOL FOR DOSING. Performed By: #### C BC, ADIFF, ANEU, APTT, CMP, HFP, GFR #### [address] [address] aPTT Coag (Bld) [Time] 29.1 s Normal 25.4 - 38.4 [facility] Comment on above: Performed By: #### 2 05401 ####[facility],[address] [place] [address] BGon 06-16-2025 Base excess Calc (Bld) [Moles/Vol] -1.1000 mmol/L Normal [facility] Comment on above: Performed By: #### D RUGS #### [address] [address] CO2 [Moles/Vol] 25.6 mmol/L Normal 22.0-30.0 [facility] Comment on above: Performed By: #### D RUGS #### [address] [address] HCO3 (Bld) [Moles/Vol] 24.3 mmol/L Normal 21.0-29.0 [facility] Comment on above: Performed By: #### D RUGS #### [address] [address] Oxygen (Bld) [Partial pressure] 97.9 mm[Hg] Normal 74.0-108.0 [facility] Comment on above: Performed By: #### D RUGS #### [place] [address] Oxygen saturation in Blood 97.1 % High 92.0-96.0 [facility] Comment on above: Performed By: #### D KAYLA #### [place] [address] pCO2 43.4 mmHg Normal 32.0-46.0 [facility] Comment on above: Performed By: #### D RUGS #### [place] [address] pH (Bld) 7.366 [pH] Low 7.380-7.460 [facility] Comment on above: Performed By: #### D KAYLA #### [place] [address] CBCon 06-16-2025 Erythrocyte distribution width (RBC) [Ratio] 13.9 % Normal 11.5-15.5 [facility] Comment on above: Performed By: #### L AC #### [place] [address] Hematocrit (Bld) [Volume fraction] 34.3 % Normal 34.0-46.0 [facility] Comment on above: Performed By: #### L AC #### [place] [address] Hgb 11.3 G/dL Low 12.0-16.0 [facility] Comment on above: Performed By: #### L AC #### [place] [address] MCH (RBC) [Entitic mass] 29.1 pg Normal 27.0-33.0 [facility] Comment on above: Performed By: #### L AC #### [place] [id number] MCHC 33.0 G/dL Normal 32.0-36.0 [facility] Comment on above: Performed By: #### L AC #### [place] [address] MCV (RBC) [Entitic vol] 88.4 fL Normal 80.0-99.0 [facility] Comment on above: Performed By: #### L AC #### [place] [id number] Platelet 263 10 3/mcL Normal 150-450 [facility] Comment on above: Performed By: #### L AC #### [place] [id number] Platelet mean volume (Bld) [Entitic vol] 7.4 fL Normal 6.6-10.5 [facility] Comment on above: Performed By: #### L AC #### [place] [address] RBC 3.88 10 6/mcL Low 4.10-5.30 [facility] Comment on above: Performed By: #### L AC #### [place] [id number] WBC 12.1 10 3/mcL High 4.5-10.8 [facility] Comment on above: Performed By: #### L AC #### [place] [address] Erythrocyte distribution width (RBC) [Ratio] 14.4 % Normal 11.5-15.5 [facility] Comment on above: Performed By: #### L AC #### [place] [address] Hematocrit (Bld) [Volume fraction] 38.4 % Normal 34.0-46.0 [facility] Comment on above: Performed By: #### L AC #### [place] [address] Hgb 12.4 G/dL Normal 12.0-16.0 [facility] Comment on above: Performed By: #### L AC #### [place] [id number] MCH (RBC) [Entitic mass] 28.7 pg Normal 27.0-33.0 [facility] Comment on above: Performed By: #### L AC #### [place] [address] MCHC 32.3 G/dL Normal 32.0-36.0 [facility] Comment on above: Performed By: #### L AC #### [place] [address] MCV (RBC) [Entitic vol] 88.8 fL Normal 80.0-99.0 [facility] Comment on above: Performed By: #### L AC #### [place] [address] Platelet 297 10 3/mcL Normal 150-450 [facility] Comment on above: Performed By: #### L AC #### [place] [address] Platelet mean volume (Bld) [Entitic vol] 7.5 fL Normal 6.6-10.5 [facility] Comment on above: Performed By: #### L AC #### [place] [address] RBC 4.32 10 6/mcL Normal 4.10-5.30 [facility] Comment on above: Performed By: #### L AC #### [place] [address] WBC 20.2 10 3/mcL High 4.5-10.8 [facility] Comment on above: Performed By: #### L AC #### [place] [address] CBC + DIFFon 06-16-2025 Baso # 0.04 x10EE3/UL Normal 0.00 - 0.10 [facility] Comment on above: Performed By: #### 2 39221 ####[facility],[address] [place] [address] Basophils/100 WBC (Bld) 0.3 % Normal 0.0 - 2.0 [facility] Comment on above: Performed By: #### 2 32193 ####[facility],[address] [place] [address] CBC + DIFF Normal [facility] Comment on above: Result Comment: CBC- COMPLETE BLOOD COUNT Performed By: #### 2 33252 ####[facility],[address] [place] [address] EO # 0.19 x10EE3/UL Normal 0.00 - 0.50 [facility] Comment on above: Performed By: #### 2 77722 ####[facility],[address] [place] [address] Eosinophils/100 WBC (Bld) 1.6 % Normal 0.0 - 7.0 [facility] Comment on above: Performed By: #### 2 25782 ####[facility],[address] [place] [address] Erythrocyte distribution width (RBC) [Ratio] 13.9 % Normal 12.0 - 15.6 [facility] Comment on above: Performed By: #### 2 46586 ####[facility],[address] [place] [address] Hematocrit (Bld) [Volume fraction] 39.0 % Normal 34.0 - 46.0 [facility] Comment on above: Performed By: #### 2 40754 ####[facility],[address] [place] [address] Hemoglobin (Bld) [Mass/Vol] 13.5 g/dL Normal 12.0 - 16.0 [facility] Comment on above: Performed By: #### 2 61626 ####[facility],[address] [place] [address] Lymph # 4.60 x10EE3/UL High 0.80 - 2.80 [facility] Comment on above: Performed By: #### 2 95808 ####[facility],[address] [place] [address] Lymphocytes/100 WBC (Bld) 38.1 % Normal 20.0 - 45.0 [facility] Comment on above: Performed By: #### 2 13329 ####[facility],[address] [place], [place] [id number] MANUAL DIFF N/A Normal [facility] Comment on above: Performed By: #### 2 15584 ####[facility],[address] [place] [address] MCH (RBC) [Entitic mass] 31 pg Normal 27 - 33 [facility] Comment on above: Performed By: #### 2 08214 ####[facility],[address] [place] [address] MCHC 35 X10 3 Normal 32 - 36 [facility] Comment on above: Performed By: #### 2 29012 ####[facility],[address] [place] [address] MCV (RBC) [Entitic vol] 91 fL Normal 80 - 99 [facility] Comment on above: Performed By: #### 2 97219 ####[facility],[address] [place] [address] [place] # 0.64 x10EE3/UL Normal 0.20 - 1.00 [facility] Comment on above: Performed By: #### 2 60665 ####[facility],[address] [place] [address] MONOS % 5.3 % Normal 0.0 - 10.0 [facility] Comment on above: Performed By: #### 2 24688 ####[facility],[address] [place], [place] [id number] Morphology Dandy (Bld) [Interp] N/A Normal [facility] Comment on above: Performed By: #### 2 06851 ####[facility],[address] [place] [address] Neut # 6.61 x10EE3/UL Normal 1.50 - 7.10 [facility] Comment on above: Performed By: #### 2 66146 ####[facility],[address] [place] [address] Neutrophils/100 WBC (Bld) 54.7 % Normal 46.0 - 76.0 [facility] Comment on above: Performed By: #### 2 48677 ####[facility],[address] [place] [address] PLATELET 365 x10EE3/UL Normal 150 - 450 [facility] Comment on above: Performed By: #### 2 99828 ####[facility],[address] [place] [address] Platelet mean volume (Bld) [Entitic vol] 7.4 fL Normal 6.6 - 10.5 [facility] Comment on above: Result Comment: AUTO MATED DIFFERENTIAL Performed By: #### 2 64616 ####[facility],[address] [place] [address] RBC 4.31 x 10EE6/UL Normal 4.10 - 5.30 [facility] Comment on above: Performed By: #### 2 06999 ####[facility],[address] [place] [address] WBC 12.1 x 10EE3/UL High 4.5 - 10.8 [facility] Comment on above: Performed By: #### 2 66119 ####[facility],[address] [place] [address] CHEST 1 VIEWon 06-16-2025 CHEST 1 VIEW Normal [facility] CHEST 1 VIEW (PICC/ET PLACEM ENTon 06-16-2025 CHEST 1 VIEW (PICC/ET PLACEMENT Normal [facility] CMPon 06-16-2025 Albumin Level 3.5 G/dL Normal 3.2-4.8 [facility] Comment on above: Performed By: #### L AC #### [facility] [address] [place] [address] Albumin/Globulin [Mass ratio] 1.0 {ratio} Normal 0.9-1.6 [facility] Comment on above: Performed By: #### L AC #### [facility] [address] [place] [address] ALP [Catalytic activity/Vol] 135 U/L High 38-126 [facility] Comment on above: Performed By: #### L AC #### [address] [address] ALT [Catalytic activity/Vol] 133 U/L High 10-49 [facility] Comment on above: Performed By: #### L AC #### [address] [address] AST [Catalytic activity/Vol] 203 U/L High 8-34 [facility] Comment on above: Performed By: #### L AC #### [address] [address] Bili Total 0.30 mg/dL Normal 0.20-1.20 [facility] Comment on above: Result Comment: Use of this assay is not recommended for patients undergoing treatment with eltrombopag due to the potential for falsely elevated results. Performed By: #### L AC #### [address] [address] BUN/Creatinine Ratio 24.5 ratio High 10.0-22.0 [facility] Comment on above: Performed By: #### L AC #### [address] [address] Calcium [Mass/Vol] 9.2 mg/dL Normal 8.7-10.4 [facility] Comment on above: Performed By: #### L AC #### [address] [address] Chloride [Moles/Vol] 100 mmol/L Normal 98-110 [facility] Comment on above: Performed By: #### L AC #### [address] [address] CO2 [Moles/Vol] 26 mmol/L Normal 22-32 [facility] Comment on above: Performed By: #### L AC #### [address] [address] Creatinine [Mass/Vol] 1.02 mg/dL Normal 0.50-1.20 [facility] Comment on above: Result Comment: Test ing performed on U[employer] analyzer using enzymatic creatinine methodology. Performed By: #### L AC #### [address] [address] Electrolyte Balance 13.0 mEq/L Normal 4.0-15.0 [facility] Comment on above: Performed By: #### L AC #### [address] [address] Globulin 3.6 G/dL Normal 2.5-4.2 [facility] Comment on above: Performed By: #### L AC #### [address] [address] Glucose [Mass/Vol] 135 mg/dL High 82-115 [facility] Comment on above: Performed By: #### L AC #### [address] [address] Potassium [Moles/Vol] 3.2 mmol/L Low 3.5-5.0 [facility] Comment on above: Performed By: #### L AC #### [address] [address] Sodium [Moles/Vol] 139 mmol/L Normal 136-145 [facility] Comment on above: Performed By: #### L AC #### [address] [address] Total Protein 7.1 G/dL Normal 5.7-8.2 [facility] Comment on above: Performed By: #### L AC #### [address] [address] Urea nitrogen [Mass/Vol] 25.0 mg/dL High 8.0-22.0 [facility] Comment on above: Performed By: #### L AC #### [address] [address] CMP with eGFRon 06-16-2025 AGE 70 years Normal [facility] Comment on above: Performed By: #### 2 97053 ####[facility],[address] [place] [address] Albumin [Mass/Vol] 3.2 g/dL Low 3.4 - 5.0 [facility] Comment on above: Performed By: #### 2 60224 ####[facility],[address] [place] [address] Albumin/Globulin [Mass ratio] 0.7 {ratio} Low 0.9 - 1.6 [facility] Comment on above: Performed By: #### 2 23784 ####[facility],[address] [place] [address] ALK PHOS 136 U/L High 46 - 116 [facility] Comment on above: Performed By: #### 2 34772 ####[facility],[address] [place] [address] ALT [Catalytic activity/Vol] 104 U/L High 16 - 63 [facility] Comment on above: Performed By: #### 2 42445 ####[facility],[address] [place] [address] Anion gap [Moles/Vol] 17 mmol/L Normal 10 - 20 [facility] Comment on above: Performed By: #### 2 23806 ####[facility],[address] [place] [address] AST [Catalytic activity/Vol] 145 U/L High 13 - 39 [facility] Comment on above: Performed By: #### 2 30332 ####[facility],[address] [place] [address] B/C RATIO 17 ratio Normal 0 - 30 [facility] Comment on above: Performed By: #### 2 77263 ####[facility],[address] [place] [address] Bilirubin [Mass/Vol] 0.7 mg/dL Normal 0.2 - 1.0 [facility] Comment on above: Performed By: #### 2 66210 ####[facility],[address] [place] [address] Calcium [Mass/Vol] 9.0 mg/dL Normal 8.5 - 10.1 [facility] Comment on above: Performed By: #### 2 66536 ####[facility],[address] [place] [address] Chloride [Moles/Vol] 95 mmol/L Low 98 - 107 [facility] Comment on above: Performed By: #### 2 10840 ####[facility],[address] [place] [address] CMP with eGFR Normal [facility] Comment on above: Result Comment: COMP REHENSIVE METABOLIC PANEL Performed By: #### 2 01487 ####[facility],[address] [place] [address] CO2 [Moles/Vol] 28.5 mmol/L Normal 21.0 - 32.0 [facility] Comment on above: Performed By: #### 2 87703 ####[facility],[address] [place] [address] Creatinine [Mass/Vol] 1.55 mg/dL High 0.55 - 1.02 [facility] Comment on above: Performed By: #### 2 52235 ####[facility],[address] [place], [place] [id number] eGFR 33 ML/MINUTE Low 60 - 999 [facility] Comment on above: Performed By: #### 2 41503 ####[facility],[address] [place], [place] [id number] eGFR(AA) 40 ML/MINUTE Low 60 - 999 [facility] Comment on above: Result Comment: ACCO RDING TO THE NATIONAL KIDNEY DISEASE EDUCATION PROGRAM(NKDE), A NORMAL eGFRIS A VALUE GREATER THAN OR EQUAL TO 60 ML/MIN/1.73 SQ METERS.CHRONIC KIDNEY DISEASE: <60mL/MIN/1.73 SQ METERSKIDNEY FAILURE: <15mL/MIN/1.73 SQ METERSTHIS TEST SHOULD ONLY BE USED FOR PATIENTS 18 YEARS OF AGE AND OLDER. Performed By: #### 2 44400 ####[facility],[address] [place] [address] Globulin (S) [Mass/Vol] 4.3 g/dL High 1.5 - 3.8 [facility] Comment on above: Performed By: #### 2 80294 ####[facility],[address] [place] [address] Glucose [Mass/Vol] 266 mg/dL High 74 - 106 [facility] Comment on above: Performed By: #### 2 18882 ####[facility],[address] [place] [address] Potassium [Moles/Vol] 4.0 mmol/L Normal 3.5 - 5.1 [facility] Comment on above: Performed By: #### 2 29263 ####[facility],[address] [place] [address]49 Protein [Mass/Vol] 7.5 g/dL Normal 6.4 - 8.2 [facility] Comment on above: Performed By: #### 2 32239 ####[facility],[address] [place] [address]21 Sodium [Moles/Vol] 136 mmol/L Normal 136 - 145 [facility] Comment on above: Performed By: #### 2 73224 ####[facility],[address] [place] [address]48 Urea nitrogen [Mass/Vol] 27 mg/dL High 7 - 18 [facility] Comment on above: Performed By: #### 2 15568 ####[facility],[address] [place] [address] CULTURE BLOOD [MARIA TERESA]on Microscopic examination of blood, culture CULTURE BLOOD [MARIA TERESA] _BLOOD CULTURE_ GO TO [employer] REPORTS AND ATTACHMENTS FOR SCANNED REPORT 06/24/25.56.DNP.COMP LETE Normal [facility] Comment on above: Performed By: #### 2 42417 ####[facility],[address] [place] [address] Microscopic examination of blood, culture CULTURE BLOOD [MARIA TERESA] _BLOOD CULTURE_ GO TO [employer] REPORTS AND ATTACHMENTS FOR SCANNED REPORT 06/24/25.55.DNP.COMP LETE Normal [facility] Comment on above: Performed By: #### 2 98575 ####[facility],[address] [place] [address] CVFLURVon 06-16-2025 FLU A PCR Negative Normal Negative [facility] Comment on above: Result Comment: Note s 1990 Performed By: #### C VFLURV ####[place] [address] FLU B PCR Negative Normal Negative [facility] Comment on above: Result Comment: Note s 1990 Performed By: #### C VFLURV ####[place] [address] RSV PCR Negative Normal Negative [facility] Comment on above: Result Comment: Note s 1990 Performed By: #### C VFLURV ####[place] [address] SARS-CoV-2 (COVID-19) RNA ALEJANDRO+probe Ql (Unsp spec) Negative Normal Negative [facility] Comment on above: Result Comment: [...] FDA Approved. Performed By: #### C VFLURV ####[place] [address] D-DIMER, QUANTITATIVEon 05-24 D-DIMER QUANT 5358 ng/ml High 0 - 230 [facility] Comment on above: Performed By: #### 2 19329 ####[facility],[address] [place] [address] D-DIMER, QUANTITATIVE Normal [facility] Comment on above: Result Comment: SILVANO T D-DIMER Performed By: #### 2 08679 ####[facility],[address] [place] [address] DRUGSon 06-16-2025 Acetaminophen [Mass/Vol] ug/mL Low 10.0-20.0 [facility] Comment on above: Performed By: #### Amina RUGS #### [place] [address] Ethanol Level <10.0 Normal [facility] Comment on above: Performed By: #### Amina RUGS #### [place] [id number] Salicylate Lvl (ds) <3.0 Low 10.0-25.0 [facility] Comment on above: Performed By: #### Amina RUGS #### [place] [address] Serum Drugs screened: See Below Normal [facility] Comment on above: Result Comment: This drug screen is a presumptive screening only. No confirmation will be performed unless requested. Drugs included in the serum drug screen are: Threshold Ethanol 10.0 mg/dL Salicylate 2.0 mg/dl Acetaminophen 2.0 mcg/mL Testing has been performed FOR MEDICAL PURPOSES ONLY. Performed By: #### Amina RUGS #### [place] [address] DRUGUon 06-16-2025 Benzodiazepine (u) Positive Abnormal Negative [facility] Comment on above: Performed By: #### L AC #### [place] [id number] Cannabinoid (u) Positive Abnormal Negative [facility] Comment on above: Performed By: #### L AC #### [place] [address] U pH Drug Scrn 6.0 Normal 5.0-8.0 [facility] Comment on above: Performed By: #### L AC #### [place] [id number] Amphetamine (u) Negative Normal Negative [facility] Comment on above: Performed By: #### L AC #### [address] [address] Barbiturate (u) Negative Normal Negative [facility] Comment on above: Performed By: #### L AC #### [place] [address] Cocaine Ql (U) Negative Normal Negative [facility] Comment on above: Performed By: #### L AC #### [place] [id number] Fentanyl (u) Negative Normal Negative [facility] Comment on above: Result Comment: Test ing has been performed FOR MEDICAL PURPOSES ONLY. Performed By: #### L AC #### [place] [address] Methadone Ql (U) Negative Normal Negative [facility] Comment on above: Performed By: #### L AC #### [place] [id number] Opiate (u) Negative Normal Negative [facility] Comment on above: Performed By: #### L AC #### [place] [id number] Oxycodone (u) Negative Normal Negative [facility] Comment on above: Result Comment: Test ing has been performed FOR MEDICAL PURPOSES ONLY. Performed By: #### L AC #### [place] [id number] PCP (u) Negative Normal Negative [facility] Comment on above: Performed By: #### L AC #### [place] [id number] Propoxyphene (u) Negative Normal Negative [facility] Comment on above: Performed By: #### L AC #### [place] [id number] Urine Drugs screened: See Below Normal [facility] Comment on above: Result [...] PURPOSES ONLY. Performed By: #### L #### [place] [address] ED MED ADMINISTRATION DETAIL on 06-16-2025 ED MED ADMINISTRATION DETAIL Normal [facility] ED NURSES CLINICAL NOTEon ED NURSES CLINICAL NOTE Normal [facility] ED ORDER SHEET (CPOE ONLY)on 06-16-2025 ED ORDER SHEET (CPOE ONLY) Normal [facility] ED PHYSICIAN CLINICAL REPORT on 06-16-2025 ED PHYSICIAN CLINICAL REPORT Normal [facility] ED SUPER BILLon 06-16-2025 ED SUPER BILL Normal [facility] ED VISIT SUMMARYon ED VISIT SUMMARY Normal [facility] ED VITALS FLOW SHEETon 06-16 ED VITALS FLOW SHEET Normal [facility] LABORATORYOrdered By: SYSTEM SYSTEM on [...] Comment on above: Interpretive Data: T jt [employer] (CHEST, 1992, 102:312S-25S) [...] mg/dL Normal 2.4 - 5 .1 mg/dL [facility] LABORATORYOrdered By: Thompson Garcia on 06-16-2025 Acetaminophen [Mass/Vol] mcg/mL Low 10.0 - 20.0 mcg/mL ADM Ethanol [Mass/Vol] mg/dL Invalid Interpretation Code ADM Salicylates [Mass/Vol] mg/dL Low 10.0 - 25.0 mg/dL [facility] Serum Drugs screened: See Below 18 (06/16/25 [...] Lactic Acid Lvl 2.0 mmol/L Normal 0.5-2.2 [facility] Comment on above: Order Comment: Order ed secondary to Lactic Acid result greater than or equal to 2.0 Performed By: #### L AC #### [address] [address] Lactic Acid Lvl 2.1 mmol/L Normal 0.5-2.2 [facility] Comment on above: Performed By: #### C BC, ADIFF, ANEU, APTT, CMP, HFP, GFR #### [address] [address] Lactic Acid Lvl 1.5 mmol/L Normal 0.5-2.2 [facility] Comment on above: Performed By: #### L AC #### [address] [address] Lactic Acid Lvl 1.7 mmol/L Normal 0.5-2.2 [facility] Comment on above: Performed By: #### L AC #### [place] [id number] LACTATEon 06-16-2025 Lactate [Moles/Vol] 3.9 mmol/L High 0.4 - 2.0 [facility] Comment on above: Result Comment: LACT ATE 3 HR NOTIFIED TO: _DANIELITO_RN 06/16/25.0422.ALA. . . LACTATE 3 HR NOTIFIED BY: _AA 06/16/25.0422.ALA. . . Performed By: #### 2 28891 ####[facility],[address] [place] [address] MGon 06-16-2025 Magnesium [Mass/Vol] 2.0 mg/dL Normal 1.6-2.4 [facility] Comment on above: Performed By: #### L AC #### [place] [address] MYCOon 06-16-2025 Mycoplasma IgG Negative [facility] MAIN Comment on above: Result Comment: INTE RPRETATION OF MYCOPLASMA IgG BY EIA: Negative: No detectable M. pneumoniae IgG antibody. Positive: Mycoplasma pneumoniae IgG antibody Detected. Equivocal: Equivocal for IgG antibodies to Mycoplasma pneumoniae. Suggest repeat testing in 10-14 days. Performed By: #### L AC #### [place] [address] Mycoplasma IgM Negative [facility] MAIN Comment on above: Result Comment: INTE RPRETATION OF MYCOPLASMA IgM: Negative: IgM to M. pneumoniae Absent, or at levels below the assay limit of detection. Positive: IgM to M. pneumoniae Present. Invalid: Test results are invalid due to invalid internal control. Assay was performed in duplicate. Repeat testing is suggested if clinically indicated. Performed By: #### L AC #### [place] [address] NT-proBNPon 06-16-2025 Natriuretic peptide B (Bld) [Mass/Vol] 4094 pg/mL High 0 - 125 [facility] Comment on above: Performed By: #### 2 05109 ####[facility],[address] [place] [address] No Panel InformationOrdered By: Luis Chang on 06-16-2025 Culture Respiratory with Gram Stain Normal respiratory renu present at 48 hours Sensitivity testing not indicated [facility] Comment on above: Requests for Mycopla sma, Legionella, Fungi, Mycobacteria, Chlamydia, and Viruses require ordering of those individual tests. GS Rare Gram Positive Cocci [facility] Comment on above: Requests for Mycopla sma, Legionella, Fungi, Mycobacteria, Chlamydia, and Viruses require ordering of those individual tests. No Panel Informationon 06-16 Legionella Urine Ag Presumptive negative for L. pneumophila serogroup 1 antigen in urine, suggesting no recent or current infection. Legionnaire's disease cannot be ruled out since other serogroups and species may also cause disease. [facility] Streptococcus Pneumoniae Urine Antig Presumptive negative for pneumococcal pneumonia, suggesting no current or recent pneumococcal infection. Infection due to Strep pneumoniae cannot be ruled out since the antigen present in the sample may be below the detection limit of the test. [facility] Comment on above: This test has not be en evaluated on patients taking antibiotics for greater than 24 hours or on patients who have recently completed an antibiotic regimen. The accuracy of this test has not been proven in young children. Microscopic examination of blood, culture Blood Culture: No Growth at [address] [facility] PHOSon 06-16-2025 Phosphate [Mass/Vol] 4.2 mg/dL Normal 2.4-5.1 [facility] Comment on above: Performed By: #### L AC #### [place] [id number] [place] [address] PROon 06-16-2025 INR Coag (PPP) [Relative time] 1.2 {INR} Normal [facility] Comment on above: Result Comment: [employer] (CHEST, 1992, 102:312S-25S) recommended therapeutic range for oral anticoagulant therapy is: LOW RISK: Prophylaxis of venous thrombosis INR: 2.0-3.0 Treatment of pulmonary embolism 2.0-3.0 Prevention of systemic embolism 2.0-3.0 HIGH RISK: Mechanical prosthetic valves 2.5-3.5 Performed By: #### C BC, ADIFF, ANEU, APTT, CMP, HFP, GFR #### [facility] [address] [place] [address] PT Coag (PPP) [Time] 14.4 s Normal 9.0-14.4 [facility] Comment on above: Result Comment: Effe ctive 05/06/08, Protime results may be affected by some antibiotics (i.e. Ciprofloxacin, Azithromycin, Bactrim) which may potentiate the action of oral anticoagulants, with further increases in Protime/INR. Performed By: #### C BC, ADIFF, ANEU, APTT, CMP, HFP, GFR #### [facility] [address] [place] [address] PROTHROMBIN TIME AND INRon 0 06-16-2025 INR Coag (PPP) [Relative time] 1.1 {INR} Normal 0.8 - 1.2 [facility] Comment on above: Result Comment: [...] MECHANICAL HEART VALVES Performed By: #### 2 39437 ####[facility],[address] [place], [place] [id number] PROTHROMBIN TIME AND INR Normal [facility] Comment on above: Result Comment: PROT HROMBIN TIME AND INR Performed By: #### 2 60351 ####[facility],[address] [place], [place] [id number] PT-COUMADIN 11.8 sec Normal 9.3 - 14.1 [facility] Comment on above: Performed By: #### 2 53927 ####[facility],[address] [place], [place] [id number] TROPHSon 06-16-2025 High Sensitivity Troponin I 1085 ng/L High 0-34 [facility] Comment on above: Result Comment: High Sensitive Troponin I Reference Ranges: Female: 0-34 ng/L Male: 0-54 ng/L Testing performed on [employer] IM analyzer using direct chemiluminescent technology. Performed By: #### L AC #### [place] [phone] High Sensitivity Troponin I 951 ng/L High [address] MAIN Comment on above: Result Comment: High Sensitive Troponin I Reference Ranges: Female: 0-34 ng/L Male: 0-54 ng/L Testing performed on [employer] IM analyzer using direct chemiluminescent technology. Performed By: #### C BC, ADIFF, ANEU, APTT, CMP, HFP, GFR #### [place] [phone] TROPONINon 06-16-2025 HS TROPONIN 282.4 pg/mL Critically high 0.0 - 51.4 [facility] Comment on above: Result Comment: { CA LLED TO DANIELITO RN BY AA [id number]{ READ BACK BY DANIELITO RN RA [id number] Performed By: #### 2 39795 ####[place] [address] HS TROPONIN 217.4 pg/mL Critically high 0.0 - 51.4 [facility] Comment on above: Result Comment: { CA LLED TO DANIELITO RN BY AA [id number]{ READ BACK BY DANIELITO RN RA [id number] Performed By: #### 2 15125 ####[facility],[address] [place] [address] URINALYSISon 06-16-2025 Amorphous NONE Normal [facility] Comment on above: Performed By: #### 2 96638 ####[place] [address] Bacteria NONE Normal [facility] Comment on above: Performed By: #### 2 50828 ####[facility],[address] [place] [address] Bilirubin Ql (U) Negative Normal NORMAL: NEGATIVE [facility] Comment on above: Performed By: #### 2 84552 ####[facility],[address] [place] [address] Casts NONE Normal [facility] Comment on above: Performed By: #### 2 95023 ####[facility],[address] [place] [address] Clarity (U) clear Normal NORMAL: CLEAR [facility] Comment on above: Performed By: #### 2 51331 ####[facility],[address] [place] [address] Color (U) ariane Normal NORMAL: YELLOW [facility] Comment on above: Performed By: #### 2 05715 ####[facility],[address] [place] [address] Crystals LM Nom (Urine sed) NONE Normal [facility] Comment on above: Performed By: #### 2 26539 ####[facility],[address] [place] [address]36 Epi Cells NONE Normal [facility] Comment on above: Performed By: #### 2 08502 ####[facility],[address] [place] [address] 28063 Glucose Ql (U) 50 Abnormal NORMAL: NORMAL [facility] Comment on above: Performed By: #### 2 09032 ####[facility],[address] [place] [address] Hemoglobin Ql (U) 150 Abnormal NORMAL: NEGATIVE [facility] Comment on above: Performed By: #### 2 10219 ####[facility],[address] [place] [address] Ketone Negative Normal NORMAL: NEGATIVE [facility] Comment on above: Performed By: #### 2 94265 ####[facility],[address] [place] [address] Leukocytes Negative Normal NORMAL: NEGATIVE [facility] Comment on above: Performed By: #### 2 51450 ####[facility],[address] [place] [address] Mucous NONE Normal [facility] Comment on above: Performed By: #### 2 14451 ####[facility],[address] [place] [address] Nitrite Ql (U) Negative Normal NORMAL: NEGATIVE [facility] Comment on above: Performed By: #### 2 44781 ####[facility],[address] [place] [address] pH (U) 6 [pH] Normal NORMAL: 5.0-8.0 [facility] Comment on above: Performed By: #### 2 58288 ####[facility],[address] [place] [address] Protein Ql (U) 500 Abnormal NORMAL: NEGATIVE [facility] Comment on above: Performed By: #### 2 38677 ####[facility],[address] [place] [address] Rbc 0-5 Normal 0-3/hpf [facility] Comment on above: Performed By: #### 2 12002 ####[facility],[address] [place] [address] Sp [place] 1.025 Normal NORMAL: 1.010-1.030 [facility] Comment on above: Performed By: #### 2 52504 ####[facility],[address] [place] [address] Specimen Type R Normal [facility] Comment on above: Performed By: #### 2 25626 ####[facility],[address] [place] [address] Urinalysis dipstick W Reflex Microscopic panel (U) SEE BELOW Normal [facility] Comment on above: Result Comment: MICR OSCOPIC Performed By: #### 2 67675 ####[facility],[address] [place] [address] Urobilinog 1 Abnormal NORMAL: NORMAL [facility] Comment on above: Performed By: #### 2 51748 ####[facility],[address] [facility],[place] [address] Wbc NONE Normal 0-5/hpf [facility] Comment on above: Performed By: #### 2 84023 ####[facility],[address] [place] [address],[place] [address] Yeast NONE Normal [facility] Comment on above: Performed By: #### 2 99652 ####[facility],[address] [place] [address],[facility] [address] VBGon 06-16-2025 vBE -3 mmol/L Low -2 - 3 [facility] Comment on above: Performed By: #### 2 88525 ####[facility],[address] [place] [address],[facility] [address] vHCO3 28 mmol/L Normal 23 - 28 [facility] Comment on above: Performed By: #### 2 77217 ####[facility],[address] [place] [address],[facility] [address] vpCO2 109 mmHg High 41 - 51 [facility] Comment on above: Performed By: #### 2 03666 ####[facility],[address] [place] [address] vpH 7.02 Low 7.31 - 7.41 [facility] Comment on above: Performed By: #### 2 41972 ####[facility],[address] [place] [address] [place] [address] vpO2 42 mmHg Normal [facility] Comment on above: Performed By: #### 2 45853 ####[facility],[address] [place] [address],[facility] [address] vsO2 51 % Normal [facility] Comment on above: Performed By: #### 2 95196 ####[facility],[address] [place] [address] vBE 1 mmol/L Normal -2 - 3 [facility] Comment on above: Performed By: #### 2 65112 ####[facility],[address] [place] [address] vHCO3 31 mmol/L High 23 - 28 [facility] Comment on above: Performed By: #### 2 96698 ####[facility],[address] [place] [address] vpCO2 101 mmHg High 41 - 51 [facility] Comment on above: Performed By: #### 2 00765 ####[facility],[address] [place] [address]483 vpH 7.08 Low 7.31 - 7.41 [facility] Comment on above: Performed By: #### 2 58602 ####[facility],[address] [place] [address] vpO2 33 mmHg Normal [facility] Comment on above: Performed By: #### 2 39428 ####[facility],[address] [place] [address] vsO2 39 % Normal [facility] Comment on above: Performed By: #### 2 23717 ####[facility],[address] [place] [address]87 XR CHEST 1 VIEWon 06-16-2025 XR CHEST [...] 10:44:49 AM Ordering Provider: VANDANA DOS SANTOS [facility] BMP with eGFRon 03-07-2025 AGE 70 years Normal [facility] Comment on above: Performed By: #### 2 66311 ####[facility],[address] [place] [address] Anion gap [Moles/Vol] 9 mmol/L Low 10 - 20 [facility] Comment on above: Performed By: #### 2 59297 ####[facility],[address] [place] [address] BMP with eGFR Normal [facility] Comment on above: Result Comment: BASI C METABOLIC PANEL Performed By: #### 2 91383 ####[facility],[address] [place] [address] Calcium [Mass/Vol] 8.7 mg/dL Normal 8.5 - 10.1 [facility] Comment on above: Performed By: #### 2 92333 ####[facility],[address] [place] [address] Chloride [Moles/Vol] 103 mmol/L Normal 98 - 107 [facility] Comment on above: Performed By: #### 2 44036 ####[facility],[address] [place] [address] CO2 [Moles/Vol] 31.6 mmol/L Normal 21.0 - 32.0 [facility] Comment on above: Performed By: #### 2 87965 ####[facility],[address] [place] [address]10 Creatinine [Mass/Vol] 1.16 mg/dL High 0.55 - 1.02 [facility] Comment on above: Performed By: #### 2 90065 ####[facility],[address] [place] [address]1261 eGFR 46 ML/MINUTE Low 60 - 999 [facility] Comment on above: Performed By: #### 2 86820 ####[facility],[address] [place] [address]162 eGFR(AA) 56 ML/MINUTE Low 60 - 999 [facility] Comment on above: Result Comment: ACCO RDING TO THE NATIONAL KIDNEY DISEASE EDUCATION PROGRAM(NKDE), A NORMAL eGFRIS A VALUE GREATER THAN OR EQUAL TO 60 ML/MIN/1.73 SQ METERS.CHRONIC KIDNEY DISEASE: <60mL/MIN/1.73 SQ METERSKIDNEY FAILURE: <15mL/MIN/1.73 SQ METERSTHIS TEST SHOULD ONLY BE USED FOR PATIENTS 18 YEARS OF AGE AND OLDER. Performed By: #### 2 68919 ####[facility],[address] [place] [address] Glucose [Mass/Vol] 96 mg/dL Normal 74 - 106 [facility] Comment on above: Performed By: #### 2 21315 ####[facility],[address] [place] [address] Potassium [Moles/Vol] 3.4 mmol/L Low 3.5 - 5.1 [facility] Comment on above: Performed By: #### 2 41632 ####[facility],[address] [place] [address]11 Sodium [Moles/Vol] 140 mmol/L Normal 136 - 145 [facility] Comment on above: Performed By: #### 2 79042 ####[facility],[address] [place] [address] 23662 Urea nitrogen [Mass/Vol] 25 mg/dL High 7 - 18 [facility] Comment on above: Performed By: #### 2 38501 ####[facility],[address] [place] [address] CMP with eGFRon 11-13-2024 AGE 69 years Normal [facility] Comment on above: Performed By: #### 2 52472 ####[facility],[address] [place] [address] 31900 Albumin [Mass/Vol] 2.4 g/dL Low 3.4 - 5.0 [facility] Comment on above: Performed By: #### 2 93019 ####[facility],[address] [place] [address] 22457 Albumin/Globulin [Mass ratio] 0.8 {ratio} Low 0.9 - 1.6 [facility] Comment on above: Performed By: #### 2 96018 ####[facility],[address] [place] [address] 35833 ALK PHOS 57 U/L Normal 46 - 116 [facility] Comment on above: Performed By: #### 2 85086 ####[facility],[address] [place] [address] 90141 ALT [Catalytic activity/Vol] 55 U/L Normal 16 - 63 [facility] Comment on above: Performed By: #### 2 72999 ####[facility],[address] [place] [address] 27746 Anion gap [Moles/Vol] 9 mmol/L Low 10 - 20 [facility] Comment on above: Performed By: #### 2 25164 ####[facility],[address] [place] [address] 22433 AST [Catalytic activity/Vol] 37 U/L Normal 13 - 39 [facility] Comment on above: Performed By: #### 2 23066 ####[facility],[address] [place] [address] 21265 B/C RATIO 12 ratio Normal 0 - 30 [facility] Comment on above: Performed By: #### 2 15032 ####[facility],[address] [place] [address] Bilirubin [Mass/Vol] 0.3 mg/dL Normal 0.2 - 1.0 [facility] Comment on above: Performed By: #### 2 91120 ####[facility],[address] [place] [address]2674 Calcium [Mass/Vol] 7.9 mg/dL Low 8.5 - 10.1 [facility] Comment on above: Performed By: #### 2 86120 ####[facility],[address] [place], [place] [phone] Chloride [Moles/Vol] 106 mmol/L Normal 98 - 107 [facility] Comment on above: Performed By: #### 2 57921 ####[facility],[address] [place], [place] [phone] CMP with eGFR Normal [facility] Comment on above: Result Comment: COMP REHENSIVE METABOLIC PANEL Performed By: #### 2 04548 ####[facility],[address] [place] [address] CO2 [Moles/Vol] 28.2 mmol/L Normal 21.0 - 32.0 [facility] Comment on above: Performed By: #### 2 40774 ####[facility],[address] [place], [place] [address] Creatinine [Mass/Vol] 0.91 mg/dL Normal 0.55 - 1.02 [facility] Comment on above: Performed By: #### 2 25279 ####[place] [address] GFR/1.73 sq M.predicted among non-blacks MDRD (S/P/Bld) [Vol rate/Area] mL/min/{1.73_m2} Normal 60 - 999 [facility] Comment on above: Performed By: #### 2 56934 ####[facility],[address] [place] [address] Result Comment: ACCO RDING TO THE NATIONAL KIDNEY DISEASE EDUCATION PROGRAM(NKDE), A NORMAL eGFRIS A VALUE GREATER THAN OR EQUAL TO 60 ML/MIN/1.73 SQ METERS.CHRONIC KIDNEY DISEASE: <60mL/MIN/1.73 SQ METERSKIDNEY FAILURE: <15mL/MIN/1.73 SQ METERSTHIS TEST SHOULD ONLY BE USED FOR PATIENTS 18 YEARS OF AGE AND OLDER. Globulin (S) [Mass/Vol] 3.1 g/dL Normal 1.5 - 3.8 [facility] Comment on above: Performed By: #### 2 91427 ####[address] [address] Glucose [Mass/Vol] 96 mg/dL Normal 74 - 106 [facility] Comment on above: Performed By: #### 2 05889 ####[address] [address] Potassium [Moles/Vol] 3.8 mmol/L Normal 3.5 - 5.1 [facility] Comment on above: Performed By: #### 2 90236 ####[address] [address] Protein [Mass/Vol] 5.5 g/dL Low 6.4 - 8.2 [facility] Comment on above: Performed By: #### 2 86789 ####[address] [address] Sodium [Moles/Vol] 139 mmol/L Normal 136 - 145 [facility] Comment on above: Performed By: #### 2 [id number] ####[address] [address] Urea nitrogen [Mass/Vol] 11 mg/dL Normal 7 - 18 [facility] Comment on above: Performed By: #### 2 [id number] ####[address] [address] LIPID PROFILEon 11-13-2024 Cholesterol [Mass/Vol] 131 mg/dL Normal 0 - 240 [facility] Comment on above: Performed By: #### 2 76738 ####[address],[place] [address] Cholesterol in HDL [Mass/Vol] 50 mg/dL Normal 40 - 60 [facility] Comment on above: Performed By: #### 2 06993 ####[facility],[address] [place] [address] Cholesterol in LDL [Mass/Vol] 61 mg/dL Normal 0 - 129 [facility] Comment on above: Performed By: #### 2 47092 ####[facility],[address] [place] [address] Cholesterol.total/Bebe sterol in HDL [Mass ratio] 2.6 {ratio} Normal 0.0 - 5.0 [facility] Comment on above: Performed By: #### 2 [id number] ####[facility],[address] [place] [address] Lipid 1996 panel Normal [facility] Comment on above: Result Comment: LIPI D PROFILE Performed By: #### 2 23448 ####[facility],[address] [place] [address] Triglyceride [Mass/Vol] 98 mg/dL Normal 0 - 150 [facility] Comment on above: Performed By: #### 2 50170 ####[facility],[address] [place] [address] .Auto Diffon 11-09-2024 Basophil, Absolute 0.1 10 3/mcL Normal 0.0-0.3 [facility] Comment on above: Performed By: #### L AC #### [facility] [address] [place] [address] Basophils/100 WBC (Bld) 1.2 % Normal 0.0-2.5 [facility] Comment on above: Performed By: #### L AC #### [facility] [address] [place] [address] Eosinophil, Absolute 0.2 10 3/mcL Normal 0.0-0.7 [facility] Comment on above: Performed By: #### L AC #### [place] [address] [place] [address] Eosinophils/100 WBC (Bld) 2.0 % Normal 0.0-6.0 [facility] Comment on above: Performed By: #### L AC #### [address] [address] Lymphocyte, Absolute 2.3 10 3/mcL Normal 0.9-4.3 [facility] Comment on above: Performed By: #### L AC #### [address] [address] Lymphocytes/100 WBC (Bld) 27.4 % Normal 20.0-40.0 [facility] Comment on above: Performed By: #### L AC #### [address] [address] Monocyte, Absolute 1.1 10 3/mcL Normal 0.1-1.4 [facility] Comment on above: Performed By: #### L AC #### [address] [address] Monocytes/100 WBC (Bld) 12.9 % Normal 2.0-13.0 [facility] Comment on above: Performed By: #### L AC #### [address] [address] Neutrophils/100 WBC (Bld) 56.5 % Normal 50.0-75.0 [facility] Comment on above: Performed By: #### L AC #### [address] [address] .GFRon 11-09-2024 GFR >60 Normal [facility] Comment [...] meters Performed By: #### L AC #### [address] [address] GFR Non- >60 Normal [facility] Comment on above: Result Comment: [...] meters Performed By: #### L AC #### [place] [address] .NEUABSon 11-09-2024 Neutrophil, Absolute 4.7 10 3/mcL Normal 2.3-8.1 [facility] Comment on above: Performed By: #### L AC #### [address] [address] BMPon 11-09-2024 BUN/Creatinine Ratio 29.6 ratio High 10.0-22.0 [facility] Comment on above: Performed By: #### L AC #### [address] [address] Calcium [Mass/Vol] 8.5 mg/dL Low 8.7-10.4 [facility] Comment on above: Performed By: #### L AC #### [address] [address] Chloride [Moles/Vol] 104 mmol/L Normal 98-110 [facility] Comment on above: Performed By: #### L AC #### [address] [address] CO2 [Moles/Vol] 26 mmol/L Normal 22-32 [facility] Comment on above: Performed By: #### L AC #### [place] [id number] Creatinine [Mass/Vol] 0.81 mg/dL Normal 0.50-1.20 [facility] Comment on above: Result Comment: Test ing performed on Usetrace analyzer using enzymatic creatinine methodology. Performed By: #### L AC #### [place] [id number] Electrolyte Balance 7.0 mEq/L Normal 4.0-15.0 [facility] Comment on above: Performed By: #### L AC #### [place] [id number] Glucose [Mass/Vol] 106 mg/dL Normal 82-115 [facility] Comment on above: Performed By: #### L AC #### [place] [id number] Potassium [Moles/Vol] 3.4 mmol/L Low 3.5-5.0 [facility] Comment on above: Performed By: #### L AC #### [place] [id number] Sodium [Moles/Vol] 137 mmol/L Normal 136-145 [facility] Comment on above: Performed By: #### L AC #### [place] [id number] Urea nitrogen [Mass/Vol] 24.0 mg/dL High 8.0-22.0 [facility] Comment on above: Performed By: #### L AC #### [address] [address] CBCon 11-09-2024 Erythrocyte distribution width (RBC) [Ratio] 14.5 % Normal 11.5-15.5 [facility] Comment on above: Performed By: #### L AC #### [place] [id number] Hematocrit (Bld) [Volume fraction] 35.6 % Normal 34.0-46.0 [facility] Comment on above: Performed By: #### L AC #### [address] [address] Hgb 11.9 G/dL Low 12.0-16.0 [facility] Comment on above: Performed By: #### L AC #### [place] [address] MCH (RBC) [Entitic mass] 30.2 pg Normal 27.0-33.0 [facility] Comment on above: Performed By: #### L AC #### [place] [address] MCHC 33.5 G/dL Normal 32.0-36.0 [facility] Comment on above: Performed By: #### L AC #### [place] [address] MCV (RBC) [Entitic vol] 90.2 fL Normal 80.0-99.0 [facility] Comment on above: Performed By: #### L AC #### [place] [address] Platelet 402 10 3/mcL Normal 150-450 [facility] Comment on above: Performed By: #### L AC #### [place] [address] Platelet mean volume (Bld) [Entitic vol] 7.4 fL Normal 6.6-10.5 [facility] Comment on above: Performed By: #### L AC #### [place] [address] RBC 3.95 10 6/mcL Low 4.10-5.30 [facility] Comment on above: Performed By: #### L AC #### [place] [address] WBC 8.4 10 3/mcL Normal 4.5-10.8 [facility] Comment on above: Performed By: #### L AC #### [place] [address] LABORATORYOrdered By: SYSTEM SYSTEM on 11-09-2024 Basophils [...] above: Interpretive Data: T esting performed on Usetrace analyzer using enzymatic creatinine methodology. Electrolyte Balance [...] (S/P/Bld) [Vol rate/Area] ml/min/1.73sqm Invalid Interpretation Code [facility] Comment on above: Interpretive Data: [...] (S/P/Bld) [Vol rate/Area] ml/min/1.73sqm Invalid Interpretation Code [facility] Comment on above: Interpretive Data: [...] 11-09-2024 Magnesium [Mass/Vol] 2.1 mg/dL Normal 1.6-2.4 [facility] Comment on above: Performed By: #### L AC #### [address] [address] .Auto Diffon 11-08-2024 Basophil, Absolute 0.1 10 3/mcL Normal 0.0-0.3 [facility] Comment on above: Performed By: #### C BC, ADIFF, ANEU, BMP, MG, GFR ####[address] [address] Basophils/100 WBC (Bld) 1.4 % Normal 0.0-2.5 [facility] Comment on above: Performed By: #### C BC, ADIFF, ANEU, BMP, MG, GFR ####[facility] [place] [address] Eosinophil, Absolute 0.2 10 3/mcL Normal 0.0-0.7 [facility] Comment on above: Performed By: #### C BC, ADIFF, ANEU, BMP, MG, GFR ####[address] [address] Eosinophils/100 WBC (Bld) 2.7 % Normal 0.0-6.0 [facility] Comment on above: Performed By: #### C BC, ADIFF, ANEU, BMP, MG, GFR ####[address] [address] Lymphocyte, Absolute 1.9 10 3/mcL Normal 0.9-4.3 [facility] Comment on above: Performed By: #### C BC, ADIFF, ANEU, BMP, MG, GFR ####[address] [address] Lymphocytes/100 WBC (Bld) 26.7 % Normal 20.0-40.0 [facility] Comment on above: Performed By: #### C BC, ADIFF, ANEU, BMP, MG, GFR ####[address] [address] Monocyte, Absolute 0.9 10 3/mcL Normal 0.1-1.4 [facility] Comment on above: Performed By: #### C BC, ADIFF, ANEU, BMP, MG, GFR ####[address] [address] Monocytes/100 WBC (Bld) 13.0 % Normal 2.0-13.0 [facility] Comment on above: Performed By: #### C BC, ADIFF, ANEU, BMP, MG, GFR ####[address] [address] Neutrophils/100 WBC (Bld) 56.2 % Normal 50.0-75.0 [facility] Comment on above: Performed By: #### C BC, ADIFF, ANEU, BMP, MG, GFR ####[address] [address] .GFRon 11-08-2024 GFR >60 Normal [facility] Comment [...] C BC, ADIFF, ANEU, BMP, MG, GFR ####[address] [address] GFR Non- >60 Normal [facility] Comment on above: Result Comment: [...] C BC, ADIFF, ANEU, BMP, MG, GFR ####[address] [address] .NEUABSon 11-08-2024 Neutrophil, Absolute 4.1 10 3/mcL Normal 2.3-8.1 [facility] Comment on above: Performed By: #### C BC, ADIFF, ANEU, BMP, MG, GFR ####[address] [address] BMPon 11-08-2024 BUN/Creatinine Ratio 28.2 ratio High 10.0-22.0 [facility] Comment on above: Performed By: #### C BC, ADIFF, ANEU, BMP, MG, GFR ####[address] [address] Calcium [Mass/Vol] 8.8 mg/dL Normal 8.7-10.4 [facility] Comment on above: Performed By: #### C BC, ADIFF, ANEU, BMP, MG, GFR ####[address] [address] Chloride [Moles/Vol] 105 mmol/L Normal 98-110 [facility] Comment on above: Performed By: #### C BC, ADIFF, ANEU, BMP, MG, GFR ####[address] [address] CO2 [Moles/Vol] 27 mmol/L Normal 22-32 [facility] Comment on above: Performed By: #### C BC, ADIFF, ANEU, BMP, MG, GFR ####[address] [address] Creatinine [Mass/Vol] 0.71 mg/dL Normal 0.50-1.20 [facility] Comment on above: Result Comment: Test ing performed on Usetrace analyzer using enzymatic creatinine methodology. Performed By: #### C BC, ADIFF, ANEU, BMP, MG, GFR ####[address] [address] Electrolyte Balance 7.0 mEq/L Normal 4.0-15.0 [facility] Comment on above: Performed By: #### C BC, ADIFF, ANEU, BMP, MG, GFR ####[address] [address] Glucose [Mass/Vol] 100 mg/dL Normal 82-115 [facility] Comment on above: Performed By: #### C BC, ADIFF, ANEU, BMP, MG, GFR ####[address] [address] Potassium [Moles/Vol] 3.5 mmol/L Normal 3.5-5.0 [facility] Comment on above: Performed By: #### C BC, ADIFF, ANEU, BMP, MG, GFR ####[address] [address] Sodium [Moles/Vol] 139 mmol/L Normal 136-145 [facility] Comment on above: Performed By: #### C BC, ADIFF, ANEU, BMP, MG, GFR ####[address] [address] Urea nitrogen [Mass/Vol] 20.0 mg/dL Normal 8.0-22.0 [facility] Comment on above: Performed By: #### C BC, ADIFF, ANEU, BMP, MG, GFR ####[place] [address] CBCon 11-08-2024 Erythrocyte distribution width (RBC) [Ratio] 14.1 % Normal 11.5-15.5 [facility] Comment on above: Performed By: #### C BC, ADIFF, ANEU, BMP, MG, GFR ####[place] [address] Hematocrit (Bld) [Volume fraction] 36.1 % Normal 34.0-46.0 [facility] Comment on above: Performed By: #### C BC, ADIFF, ANEU, BMP, MG, GFR ####[place] [address] Hgb 12.1 G/dL Normal 12.0-16.0 [facility] Comment on above: Performed By: #### C BC, ADIFF, ANEU, BMP, MG, GFR ####[place] [address] MCH (RBC) [Entitic mass] 30.0 pg Normal 27.0-33.0 [facility] Comment on above: Performed By: #### C BC, ADIFF, ANEU, BMP, MG, GFR ####[place] [address] MCHC 33.5 G/dL Normal 32.0-36.0 [facility] Comment on above: Performed By: #### C BC, ADIFF, ANEU, BMP, MG, GFR ####[place] [address] MCV (RBC) [Entitic vol] 89.7 fL Normal 80.0-99.0 [facility] Comment on above: Performed By: #### C BC, ADIFF, ANEU, BMP, MG, GFR ####[place] [address] Platelet 402 10 3/mcL Normal 150-450 [facility] Comment on above: Performed By: #### C BC, ADIFF, ANEU, BMP, MG, GFR ####[place] [id number] [address] [place] [address] Platelet mean volume (Bld) [Entitic vol] 7.5 fL Normal 6.6-10.5 [facility] Comment on above: Performed By: #### C BC, ADIFF, ANEU, BMP, MG, GFR ####[place] [address]10 [address] [place] [address] RBC 4.02 10 6/mcL Low 4.10-5.30 [facility] Comment on above: Performed By: #### C BC, ADIFF, ANEU, BMP, MG, GFR ####[place] [address]10 [address] [place] [address] WBC 7.3 10 3/mcL Normal 4.5-10.8 [facility] Comment on above: Performed By: #### C BC, ADIFF, ANEU, BMP, MG, GFR ####[place] [id number] [address] [place] [address] LABORATORYOrdered By: Tricia Kinney on 11-08-2024 Glucose [Mass/Vol] 107 mg/dL Normal 82 - 115 mg/dL [facility] LABORATORYOrdered By: SYSTEM SYSTEM on 11-08-2024 [...] above: Interpretive Data: T esting performed on Usetrace analyzer using enzymatic creatinine methodology. Electrolyte Balance [...] (S/P/Bld) [Vol rate/Area] ml/min/1.73sqm Invalid Interpretation Code [facility] Comment on above: Interpretive Data: [...] (S/P/Bld) [Vol rate/Area] ml/min/1.73sqm Invalid Interpretation Code [facility] Comment on above: Interpretive Data: [...] 11-08-2024 Magnesium [Mass/Vol] 2.0 mg/dL Normal 1.6-2.4 [facility] Comment on above: Performed By: #### C BC, ADIFF, ANEU, BMP, MG, GFR ####[address] [address] .Auto Diffon 11-07-2024 Basophil, Absolute 0.1 10 3/mcL Normal 0.0-0.3 [facility] Comment on above: Performed By: #### L AC #### [address] [address] Basophils/100 WBC (Bld) 1.0 % Normal 0.0-2.5 [facility] Comment on above: Performed By: #### L AC #### [address] [address] Eosinophil, Absolute 0.1 10 3/mcL Normal 0.0-0.7 [facility] Comment on above: Performed By: #### L AC #### [address] [address] Eosinophils/100 WBC (Bld) 0.9 % Normal 0.0-6.0 [facility] Comment on above: Performed By: #### L AC #### [address] [address] Lymphocyte, Absolute 1.3 10 3/mcL Normal 0.9-4.3 [facility] Comment on above: Performed By: #### L AC #### [address] [address] Lymphocytes/100 WBC (Bld) 14.5 % Low 20.0-40.0 [facility] Comment on above: Performed By: #### L AC #### [address] [address] Monocyte, Absolute 1.0 10 3/mcL Normal 0.1-1.4 [facility] Comment on above: Performed By: #### L AC #### [address] [address] Monocytes/100 WBC (Bld) 10.3 % Normal 2.0-13.0 [facility] Comment on above: Performed By: #### L AC #### [address] [address] Neutrophils/100 WBC (Bld) 73.3 % Normal 50.0-75.0 [facility] Comment on above: Performed By: #### L AC #### [address] [address] .GFRon 11-07-2024 GFR Non- >60 [facility] Comment on above: Result Comment: [...] meters Performed By: #### L AC #### [address] [address] GFR >60 [facility] Comment on above: Result Comment: GFR [...] meters Performed By: #### L AC #### [address] [address] .NEUABSon 11-07-2024 Neutrophil, Absolute 6.8 10 3/mcL Normal 2.3-8.1 [facility] Comment on above: Performed By: #### L AC #### [address] [address] [facility] 11-07-2024 BUN/Creatinine Ratio 38.2 ratio High 10.0-22.0 [facility] Comment on above: Performed By: #### L AC #### [address] [address] Calcium [Mass/Vol] 9.0 mg/dL Normal 8.7-10.4 [facility] Comment on above: Performed By: #### L AC #### [address] [address] Chloride [Moles/Vol] 102 mmol/L Normal 98-110 [facility] Comment on above: Performed By: #### L AC #### [address] [address] CO2 [Moles/Vol] 27 mmol/L Normal 22-32 [facility] Comment on above: Performed By: #### L AC #### [address] [address] Creatinine [Mass/Vol] 0.68 mg/dL Normal 0.50-1.20 [facility] Comment on above: Result Comment: Test ing performed on Usetrace analyzer using enzymatic creatinine methodology. Performed By: #### L AC #### [address] [address] Electrolyte Balance 9.0 mEq/L Normal 4.0-15.0 [facility] Comment on above: Performed By: #### L AC #### [address] [address] Glucose [Mass/Vol] 108 mg/dL Normal 82-115 [facility] Comment on above: Performed By: #### L AC #### [address] [address] Potassium [Moles/Vol] 3.6 mmol/L Normal 3.5-5.0 [facility] Comment on above: Performed By: #### L AC #### [place] [address] Sodium [Moles/Vol] 138 mmol/L Normal 136-145 [facility] Comment on above: Performed By: #### L AC #### [place] [phone] Urea nitrogen [Mass/Vol] 26.0 mg/dL High 8.0-22.0 [facility] Comment on above: Performed By: #### L AC #### [place] [address] CBCon 11-07-2024 Erythrocyte distribution width (RBC) [Ratio] 14.2 % Normal 11.5-15.5 [facility] Comment on above: Performed By: #### L AC #### [place] [phone] Hematocrit (Bld) [Volume fraction] 33.8 % Low 34.0-46.0 [facility] Comment on above: Performed By: #### L AC #### [place] [address] Hgb 11.2 G/dL Low 12.0-16.0 [facility] Comment on above: Performed By: #### L AC #### [place] [id number] MCH (RBC) [Entitic mass] 29.6 pg Normal 27.0-33.0 [facility] Comment on above: Performed By: #### L AC #### [place] [address] MCHC 33.0 G/dL Normal 32.0-36.0 [facility] Comment on above: Performed By: #### L AC #### [place] [id number] MCV (RBC) [Entitic vol] 89.7 fL Normal 80.0-99.0 [facility] Comment on above: Performed By: #### L AC #### [place] [id number] Platelet 391 10 3/mcL Normal 150-450 [facility] Comment on above: Performed By: #### L AC #### [facility] [address] [place] [address] Platelet mean volume (Bld) [Entitic vol] 7.5 fL Normal 6.6-10.5 [facility] Comment on above: Performed By: #### L AC #### [facility] [address] [place] [address] RBC 3.77 10 6/mcL Low 4.10-5.30 [facility] Comment on above: Performed By: #### L AC #### [facility] [address] [place] [address] WBC 9.3 10 3/mcL Normal 4.5-10.8 [facility] Comment on above: Performed By: #### L AC #### [place] [address] ED MED ADMINISTRATION DETAIL on 11-07-2024 ED MED ADMINISTRATION DETAIL Normal [facility] ED NURSES CLINICAL NOTEon ED NURSES CLINICAL NOTE Normal [facility] ED ORDER SHEET (CPOE ONLY)on 11-07-2024 ED ORDER SHEET (CPOE ONLY) Normal [facility] ED PHYSICIAN CLINICAL REPORT on 11-07-2024 ED PHYSICIAN CLINICAL REPORT Normal [facility] ED PHYSICIAN DISCHARGE REPOR Ton 11-07-2024 ED PHYSICIAN DISCHARGE REPORT Normal [facility] ED SUPER BILLon 11-07-2024 ED SUPER BILL Normal [facility] ED VISIT SUMMARYon ED VISIT SUMMARY Normal [facility] ED VITALS FLOW SHEETon 11-07 ED VITALS FLOW SHEET Normal [facility] LABORATORYOrdered By: Ariane Salmon on 11-07-2024 Blood Glucose Testing Reason Routine (11/07/24 3:30 AM) [facility] Glucose [Mass/Vol] 116 mg/dL High 82 - 115 mg/dL [facility] LABORATORYOrdered By: SYSTEM SYSTEM on 11-07-2024 [...] above: Interpretive Data: T esting performed on Usetrace analyzer using enzymatic creatinine methodology. Electrolyte Balance [...] 11-07-2024 Magnesium [Mass/Vol] 2.0 mg/dL Normal 1.6-2.4 [facility] Comment on above: Performed By: #### L AC #### [place] [address] XR CHEST 1 VIEWon 11-07-2024 XR CHEST [...] 11/07/2024 6:54:29 AM Ordering Provider: EMILIO REYES [facility] .Auto Diffon 11-06-2024 Basophil, Absolute 0.1 10 3/mcL Normal 0.0-0.3 [facility] Comment on above: Performed By: #### L AC #### [address] [address] Basophils/100 WBC (Bld) 1.0 % Normal 0.0-2.5 [facility] Comment on above: Performed By: #### L AC #### [address] [address] Eosinophil, Absolute 0.1 10 3/mcL Normal 0.0-0.7 [facility] Comment on above: Performed By: #### L AC #### [address] [address] Eosinophils/100 WBC (Bld) 0.8 % Normal 0.0-6.0 [facility] Comment on above: Performed By: #### L AC #### [address] [address] Lymphocyte, Absolute 1.9 10 3/mcL Normal 0.9-4.3 [facility] Comment on above: Performed By: #### L AC #### [address] [address] Lymphocytes/100 WBC (Bld) 20.1 % Normal 20.0-40.0 [facility] Comment on above: Performed By: #### L AC #### [address] [address] Monocyte, Absolute 0.9 10 3/mcL Normal 0.1-1.4 [facility] Comment on above: Performed By: #### L AC #### [address] [address] Monocytes/100 WBC (Bld) 9.5 % Normal 2.0-13.0 [facility] Comment on above: Performed By: #### L AC #### [address] [address] Neutrophils/100 WBC (Bld) 68.6 % Normal 50.0-75.0 [facility] Comment on above: Performed By: #### L AC #### [address] [address] .GFRon 11-06-2024 GFR >60 [facility] Comment on above: Result Comment: GFR [...] meters Performed By: #### L AC #### [place] [address] GFR Non- 60 ml/min/1.73sqm [facility] Comment on above: Result Comment: [...] meters Performed By: #### L AC #### [address] [address] GFR >60 [facility] Comment on above: Result Comment: GFR [...] meters Performed By: #### L AC #### [address] [address] GFR Non- >60 Normal [facility] Comment on above: Result Comment: [...] meters Performed By: #### L AC #### [address] [address] .NEUABSon 11-06-2024 Neutrophil, Absolute 6.4 10 3/mcL Normal 2.3-8.1 [facility] Comment on above: Performed By: #### L AC #### [address] [address] BGon 11-06-2024 Base excess Calc (Bld) [Moles/Vol] 3.6 mmol/L Normal [facility] Comment on above: Performed By: #### C BC, ADIFF, ANEU, APTT, CMP, HFP, GFR #### [address] [address] CO2 [Moles/Vol] 27.9 mmol/L Normal 22.0-30.0 [facility] Comment on above: Performed By: #### C BC, ADIFF, ANEU, APTT, CMP, HFP, GFR #### [place] [address] [address] HCO3 (Bld) [Moles/Vol] 26.8 mmol/L Normal 21.0-29.0 [facility] Comment on above: Performed By: #### C BC, ADIFF, ANEU, APTT, CMP, HFP, GFR #### [place] [id number] Oxygen (Bld) [Partial pressure] 97.0 mm[Hg] Normal 74.0-108.0 [facility] Comment on above: Performed By: #### C BC, ADIFF, ANEU, APTT, CMP, HFP, GFR #### [place] [id number] Oxygen saturation in Blood 97.4 % High 92.0-96.0 [facility] Comment on above: Performed By: #### C BC, ADIFF, ANEU, APTT, CMP, HFP, GFR #### [place] [id number] pCO2 35.4 mmHg Normal 32.0-46.0 [facility] Comment on above: Performed By: #### C BC, ADIFF, ANEU, APTT, CMP, HFP, GFR #### [place] [id number] pH (Bld) 7.497 [pH] High 7.380-7.460 [facility] Comment on above: Performed By: #### C BC, ADIFF, ANEU, APTT, CMP, HFP, GFR #### [address] [address] BMPon 11-06-2024 BUN/Creatinine Ratio 31.2 ratio High 10.0-22.0 [facility] Comment on above: Performed By: #### L AC #### [place] [id number] Calcium [Mass/Vol] 8.5 mg/dL Low 8.7-10.4 [facility] Comment on above: Performed By: #### L AC #### [place] [id number] Chloride [Moles/Vol] 103 mmol/L Normal 98-110 [facility] Comment on above: Performed By: #### L AC #### [address] [address] CO2 [Moles/Vol] 32 mmol/L Normal 22-32 [facility] Comment on above: Performed By: #### L AC #### [address] [address] Creatinine [Mass/Vol] 0.93 mg/dL Normal 0.50-1.20 [facility] Comment on above: Result Comment: Test ing performed on Usetrace analyzer using enzymatic creatinine methodology. Performed By: #### L AC #### [address] [address] Electrolyte Balance 4.0 mEq/L Normal 4.0-15.0 [facility] Comment on above: Performed By: #### L AC #### [address] [address] Glucose [Mass/Vol] 89 mg/dL Normal 82-115 [facility] Comment on above: Performed By: #### L AC #### [address] [address] Potassium [Moles/Vol] 3.0 mmol/L Low 3.5-5.0 [facility] Comment on above: Performed By: #### L AC #### [address] [address] Sodium [Moles/Vol] 139 mmol/L Normal 136-145 [facility] Comment on above: Performed By: #### L AC #### [address] [address] Urea nitrogen [Mass/Vol] 29.0 mg/dL High 8.0-22.0 [facility] Comment on above: Performed By: #### L AC #### [address] [address] BUN/Creatinine Ratio 35.3 ratio High 10.0-22.0 [facility] Comment on above: Performed By: #### L AC #### [address] [address] Calcium [Mass/Vol] 8.5 mg/dL Low 8.7-10.4 [facility] Comment on above: Performed By: #### L AC #### [address] [address] Chloride [Moles/Vol] 101 mmol/L Normal 98-110 [facility] Comment on above: Performed By: #### L AC #### [address] [address] CO2 [Moles/Vol] 32 mmol/L Normal 22-32 [facility] Comment on above: Performed By: #### L AC #### [address] [address] Creatinine [Mass/Vol] 0.85 mg/dL Normal 0.50-1.20 [facility] Comment on above: Result Comment: Test ing performed on Usetrace analyzer using enzymatic creatinine methodology. Performed By: #### L AC #### [address] [address] Electrolyte Balance 7.0 mEq/L Normal 4.0-15.0 [facility] Comment on above: Performed By: #### L AC #### [address] [address] Glucose [Mass/Vol] 88 mg/dL Normal 82-115 [facility] Comment on above: Performed By: #### L AC #### [address] [address] Potassium [Moles/Vol] 3.0 mmol/L Low 3.5-5.0 [facility] Comment on above: Performed By: #### L AC #### [address] [address] Sodium [Moles/Vol] 140 mmol/L Normal 136-145 [facility] Comment on above: Performed By: #### L AC #### [address] [address] Urea nitrogen [Mass/Vol] 30.0 mg/dL High 8.0-22.0 [facility] Comment on above: Performed By: #### L AC #### [address] [address] CBCon 11-06-2024 Erythrocyte distribution width (RBC) [Ratio] 14.6 % Normal 11.5-15.5 [facility] Comment on above: Performed By: #### L AC #### [place] [address] Hematocrit (Bld) [Volume fraction] 30.7 % Low 34.0-46.0 [facility] Comment on above: Performed By: #### L AC #### [place] [address] Hgb 10.6 G/dL Low 12.0-16.0 [facility] Comment on above: Performed By: #### L AC #### [place] [address] MCH (RBC) [Entitic mass] 30.9 pg Normal 27.0-33.0 [facility] Comment on above: Performed By: #### L AC #### [place] [address] MCHC 34.4 G/dL Normal 32.0-36.0 [facility] Comment on above: Performed By: #### L AC #### [place] [address] MCV (RBC) [Entitic vol] 90.0 fL Normal 80.0-99.0 [facility] Comment on above: Performed By: #### L AC #### [place] [address] Platelet 360 10 3/mcL Normal 150-450 [facility] Comment on above: Performed By: #### L AC #### [place] [address] Platelet mean volume (Bld) [Entitic vol] 7.4 fL Normal 6.6-10.5 [facility] Comment on above: Performed By: #### L AC #### [place] [address] RBC 3.41 10 6/mcL Low 4.10-5.30 [facility] Comment on above: Performed By: #### L AC #### [address] [address] WBC 9.4 10 3/mcL Normal 4.5-10.8 [facility] Comment on above: Performed By: #### L AC #### [address] [address] LABORATORYOrdered By: Pamella Tao on 11-06-2024 Blood Glucose Testing Reason Routine (11/06/24 7:36 AM) [facility] Glucose [Mass/Vol] 99 mg/dL Normal 82 - 115 mg/dL [facility] LABORATORYOrdered By: Shreya moore on 11-06-2024 Blood Glucose Testing Reason Routine (11/06/24 3:27 AM) [facility] LABORATORYOrdered By: Faina Steel on 11-06-2024 [...] 11-06-2024 Magnesium [Mass/Vol] 2.2 mg/dL Normal 1.6-2.4 [facility] Comment on above: Performed By: #### L AC #### [address] [address] Magnesium [Mass/Vol] 2.0 mg/dL Normal 1.6-2.4 [facility] Comment on above: Performed By: #### L AC #### [address] [address] XR CHEST 1 VIEWon 11-06-2024 XR CHEST [...] 6:39:04 AM Ordering Provider: EMILIO REYES Normal [facility] .Auto Diffon 11-05-2024 Basophil, Absolute 0.1 10 3/mcL Normal 0.0-0.3 [facility] Comment on above: Performed By: #### D RUGS #### [address] [address] Basophils/100 WBC (Bld) 0.5 % Normal 0.0-2.5 [facility] Comment on above: Performed By: #### D RUGS #### [place] [id number] [place] [address] Eosinophil, Absolute 0.0 10 3/mcL Normal 0.0-0.7 [facility] Comment on above: Performed By: #### D RUGS #### [facility] [address] [place] [address] Eosinophils/100 WBC (Bld) 0.1 % Normal 0.0-6.0 [facility] Comment on above: Performed By: #### D RUGS #### [facility] [address] [place] [address] Lymphocyte, Absolute 1.5 10 3/mcL Normal 0.9-4.3 [facility] Comment on above: Performed By: #### D RUGS #### [facility] [address] [place] [address] Lymphocytes/100 WBC (Bld) 12.9 % Low 20.0-40.0 [facility] Comment on above: Performed By: #### D RUGS #### [address] [address] Monocyte, Absolute 1.2 10 3/mcL Normal 0.1-1.4 [facility] Comment on above: Performed By: #### D RUGS #### [address] [address] Monocytes/100 WBC (Bld) 10.6 % Normal 2.0-13.0 [facility] Comment on above: Performed By: #### D RUGS #### [address] [address] Neutrophils/100 WBC (Bld) 75.9 % High 50.0-75.0 [facility] Comment on above: Performed By: #### D RUGS #### [address] [address] .GFRon 11-05-2024 GFR >60 Normal [facility] Comment [...] meters Performed By: #### D RUGS #### [address] [address] GFR Non- >60 Normal [facility] Comment on above: Result Comment: [...] meters Performed By: #### Amina GARZA #### [address] [address] .NEUABSon 11-05-2024 Neutrophil, Absolute 8.7 10 3/mcL High 2.3-8.1 [facility] Comment on above: Performed By: #### Amina GARZA #### [address] [address] BGon 11-05-2024 Base excess Calc (Bld) [Moles/Vol] 4.1 mmol/L Normal [facility] Comment on above: Performed By: #### Sidney G ####[address] [address] CO2 [Moles/Vol] 30.0 mmol/L Normal 22.0-30.0 [facility] Comment on above: Performed By: #### Sidney G ####[address] [address] HCO3 (Bld) [Moles/Vol] 28.7 mmol/L Normal 21.0-29.0 [facility] Comment on above: Performed By: #### Sidney G ####[address] [address] Oxygen (Bld) [Partial pressure] 73.4 mm[Hg] Low 74.0-108.0 [facility] Comment on above: Performed By: #### Sidney G ####[place] [id number] [address] [place] [address] Oxygen saturation in Blood 94.7 % Normal 92.0-96.0 [facility] Comment on above: Performed By: #### Sidney G ####[address] [address] pCO2 42.9 mmHg Normal 32.0-46.0 [facility] Comment on above: Performed By: #### Sidney G ####[place] [address] pH (Bld) 7.443 [pH] Normal 7.380-7.460 [facility] Comment on above: Performed By: #### Sidney G ####[place] [address] CBCon 11-05-2024 Erythrocyte distribution width (RBC) [Ratio] 14.4 % Normal 11.5-15.5 [facility] Comment on above: Performed By: #### Amina RUGBre #### [place] [address] Hematocrit (Bld) [Volume fraction] 34.4 % Normal 34.0-46.0 [facility] Comment on above: Performed By: #### Amina RUGS #### [place] [address] Hgb 11.5 G/dL Low 12.0-16.0 [facility] Comment on above: Performed By: #### Amina GARZA #### [place] [address] MCH (RBC) [Entitic mass] 30.5 pg Normal 27.0-33.0 [facility] Comment on above: Performed By: #### Amina RUGS #### [place] [address] MCHC 33.5 G/dL Normal 32.0-36.0 [facility] Comment on above: Performed By: #### Amina RUGS #### [place] [address] MCV (RBC) [Entitic vol] 91.1 fL Normal 80.0-99.0 [facility] Comment on above: Performed By: #### Amina RUGS #### [place] [address] Platelet 423 10 3/mcL Normal 150-450 [facility] Comment on above: Performed By: #### Amina RUGS #### [place] [address] Platelet mean volume (Bld) [Entitic vol] 7.6 fL Normal 6.6-10.5 [facility] Comment on above: Performed By: #### Amina RUGS #### [place] [address] RBC 3.78 10 6/mcL Low 4.10-5.30 [facility] Comment on above: Performed By: #### Amina RUGS #### [place] [address] WBC 11.5 10 3/mcL High 4.5-10.8 [facility] Comment on above: Performed By: #### Amina RUGS #### [place] [address] CMPon 11-05-2024 Albumin Level 2.7 G/dL Low 3.2-4.8 [facility] Comment on above: Performed By: #### Amina RUGS #### [place] [address] Albumin/Globulin [Mass ratio] 0.8 {ratio} Low 0.9-1.6 [facility] Comment on above: Performed By: #### Amina RUGBre #### [place] [id number] ALP [Catalytic activity/Vol] 90 U/L Normal 38-126 [facility] Comment on above: Performed By: #### Amina RUGBre #### [place] [id number] ALT [Catalytic activity/Vol] 41 U/L Normal 10-49 [facility] Comment on above: Performed By: #### Amina RUGS #### [place] [id number] AST [Catalytic activity/Vol] 51 U/L High 8-34 [facility] Comment on above: Performed By: #### Amina RUGS #### [place] [address] Bili Total 0.40 mg/dL Normal 0.20-1.20 [facility] Comment on above: Result Comment: Use of this assay is not recommended for patients undergoing treatment with eltrombopag due to the potential for falsely elevated results. Performed By: #### D RUGS #### [place] [id number] BUN/Creatinine Ratio 28.7 ratio High 10.0-22.0 [facility] Comment on above: Performed By: #### D RUGS #### [place] [id number] Calcium [Mass/Vol] 8.5 mg/dL Low 8.7-10.4 [facility] Comment on above: Performed By: #### D RUGS #### [place] [id number] Chloride [Moles/Vol] 101 mmol/L Normal 98-110 [facility] Comment on above: Performed By: #### D RUGS #### [place] [id number] CO2 [Moles/Vol] 30 mmol/L Normal 22-32 [facility] Comment on above: Performed By: #### D RUGS #### [place] [id number] Creatinine [Mass/Vol] 0.87 mg/dL Normal 0.50-1.20 [facility] Comment on above: Result Comment: Test ing performed on Usetrace analyzer using enzymatic creatinine methodology. Performed By: #### Amina RUGS #### [place] [id number] Electrolyte Balance 8.0 mEq/L Normal 4.0-15.0 [facility] Comment on above: Performed By: #### D RUGS #### [place] [id number] Globulin 3.3 G/dL Normal 1.5-3.8 [facility] Comment on above: Performed By: #### D RUGS #### [place] [id number] Glucose [Mass/Vol] 116 mg/dL High 82-115 [facility] Comment on above: Performed By: #### Amina RUGS #### [facility] [address] [place], [place] [address] Potassium [Moles/Vol] 4.6 mmol/L Normal 3.5-5.0 [facility] Comment on above: Performed By: #### D RUGS #### [address] [address] Sodium [Moles/Vol] 139 mmol/L Normal 136-145 [facility] Comment on above: Performed By: #### D RUGS #### [address] [address] Total Protein 6.0 G/dL Normal 5.7-8.2 [facility] Comment on above: Performed By: #### D RUGS #### [address] [address] Urea nitrogen [Mass/Vol] 25.0 mg/dL High 8.0-22.0 [facility] Comment on above: Performed By: #### D RUGS #### [address] [address] LABORATORYOrdered By: [employer] on 11-05-2024 Albumin BCP dye [Mass/Vol] [...] 11-05-2024 Magnesium [Mass/Vol] 2.0 mg/dL Normal 1.6-2.4 [facility] Comment on above: Performed By: #### D RUGS #### [place] [address] MYCOon 11-05-2024 Mycoplasma IgG Negative Normal [facility] Comment on above: Result Comment: INTE RPRETATION OF MYCOPLASMA IgG BY EIA: Negative: No detectable M. pneumoniae IgG antibody. Positive: Mycoplasma pneumoniae IgG antibody Detected. Equivocal: Equivocal for IgG antibodies to Mycoplasma pneumoniae. Suggest repeat testing in 10-14 days. Performed By: #### L AC #### [place] [address] XR CHEST 1 VIEWon 11-05-2024 XR CHEST [...] 11/05/2024 6:36:29 AM Ordering Provider: VANDANA Soto [facility] .Auto Diffon 11-04-2024 Basophil, Absolute 0.1 10 3/mcL Normal 0.0-0.3 [facility] Comment on above: Performed By: #### L AC #### [address] [address] Basophils/100 WBC (Bld) 0.5 % Normal 0.0-2.5 [facility] Comment on above: Performed By: #### L AC #### [address] [address] Eosinophil, Absolute 0.0 10 3/mcL Normal 0.0-0.7 [facility] Comment on above: Performed By: #### L AC #### [address] [address] Eosinophils/100 WBC (Bld) 0.0 % Normal 0.0-6.0 [facility] Comment on above: Performed By: #### L AC #### [address] [address] Lymphocyte, Absolute 0.5 10 3/mcL Low 0.9-4.3 [facility] Comment on above: Performed By: #### L AC #### [address] [address] Lymphocytes/100 WBC (Bld) 3.0 % Low 20.0-40.0 [facility] Comment on above: Performed By: #### L AC #### [address] [address] Monocyte, Absolute 0.6 10 3/mcL Normal 0.1-1.4 [facility] Comment on above: Performed By: #### L AC #### [address] [address] Monocytes/100 WBC (Bld) 3.2 % Normal 2.0-13.0 [facility] Comment on above: Performed By: #### L AC #### [address] [address] Neutrophils/100 WBC (Bld) 93.3 % High 50.0-75.0 [facility] Comment on above: Performed By: #### L AC #### [address] [address] .GFRon 11-04-2024 GFR >60 [facility] Comment on above: Result Comment: GFR [...] meters Performed By: #### L AC #### [address] [address] GFR Non- >60 [facility] MAIN Comment on above: Result Comment: [...] meters Performed By: #### L AC #### [address] [address] .NEUABSon 11-04-2024 Neutrophil, Absolute 16.1 10 3/mcL High 2.3-8.1 [facility] Comment on above: Performed By: #### L AC #### [address] [address] BGon 11-04-2024 Base excess Calc (Bld) [Moles/Vol] 6.2 mmol/L Normal [facility] Comment on above: Performed By: #### C BC, ADIFF, ANEU, APTT, CMP, HFP, GFR #### [place] [id number] CO2 [Moles/Vol] 33.3 mmol/L High 22.0-30.0 [facility] Comment on above: Performed By: #### C BC, ADIFF, ANEU, APTT, CMP, HFP, GFR #### [place] [address] HCO3 (Bld) [Moles/Vol] 31.8 mmol/L High 21.0-29.0 [facility] Comment on above: Performed By: #### C BC, ADIFF, ANEU, APTT, CMP, HFP, GFR #### [place] [id number] Oxygen (Bld) [Partial pressure] 105.8 mm[Hg] Normal 74.0-108.0 [facility] Comment on above: Performed By: #### C BC, ADIFF, ANEU, APTT, CMP, HFP, GFR #### [place] [id number] Oxygen saturation in Blood 98.1 % High 92.0-96.0 [facility] Comment on above: Performed By: #### C BC, ADIFF, ANEU, APTT, CMP, HFP, GFR #### [place] [id number] pCO2 49.5 mmHg High 32.0-46.0 [facility] Comment on above: Performed By: #### C BC, ADIFF, ANEU, APTT, CMP, HFP, GFR #### [place] [id number] pH (Bld) 7.425 [pH] Normal 7.380-7.460 [facility] Comment on above: Performed By: #### C BC, ADIFF, ANEU, APTT, CMP, HFP, GFR #### [place] [address] CBCon 11-04-2024 Erythrocyte distribution width (RBC) [Ratio] 14.4 % Normal 11.5-15.5 [facility] Comment on above: Performed By: #### L AC #### [place] [address] Hematocrit (Bld) [Volume fraction] 35.3 % Normal 34.0-46.0 [facility] Comment on above: Performed By: #### L AC #### [place] [address] Hgb 11.9 G/dL Low 12.0-16.0 [facility] Comment on above: Performed By: #### L AC #### [place] [address] MCH (RBC) [Entitic mass] 30.6 pg Normal 27.0-33.0 [facility] Comment on above: Performed By: #### L AC #### [place] [address] MCHC 33.7 G/dL Normal 32.0-36.0 [facility] Comment on above: Performed By: #### L AC #### [place] [address] MCV (RBC) [Entitic vol] 90.7 fL Normal 80.0-99.0 [facility] Comment on above: Performed By: #### L AC #### [place] [address] Platelet 442 10 3/mcL Normal 150-450 [facility] Comment on above: Performed By: #### L AC #### [place] [id number] Platelet mean volume (Bld) [Entitic vol] 6.9 fL Normal 6.6-10.5 [facility] Comment on above: Performed By: #### L AC #### [place] [address] RBC 3.89 10 6/mcL Low 4.10-5.30 [facility] Comment on above: Performed By: #### L AC #### [place] [address] WBC 17.2 10 3/mcL High 4.5-10.8 [facility] Comment on above: Performed By: #### L AC #### [place] [address] CBC + DIFFon 11-04-2024 Baso # 0.10 x10EE3/UL Normal 0.00 - 0.10 [facility] Comment on above: Performed By: #### 2 36350 ####[facility],[address] [place], [place] [id number] Basophils/100 WBC (Bld) 0.7 % Normal 0.0 - 2.0 [facility] Comment on above: Performed By: #### 2 30460 ####[facility],[address] [place] [address] CBC + DIFF Normal [facility] Comment on above: Result Comment: CBC- COMPLETE BLOOD COUNT Performed By: #### 2 84756 ####[facility],[address] [place] [address] EO # 0.12 x10EE3/UL Normal 0.00 - 0.50 [facility] Comment on above: Performed By: #### 2 29306 ####[facility],[address] [place] [address] Eosinophils/100 WBC (Bld) 0.8 % Normal 0.0 - 7.0 [facility] Comment on above: Performed By: #### 2 80361 ####[place] [address] Erythrocyte distribution width (RBC) [Ratio] 14.1 % Normal 12.0 - 15.6 [facility] Comment on above: Performed By: #### 2 90577 ####[facility],[address] [place], [place] [id number] Hematocrit (Bld) [Volume fraction] 36.4 % Normal 34.0 - 46.0 [facility] Comment on above: Performed By: #### 2 90046 ####[facility],[address] [place] [address] Hemoglobin (Bld) [Mass/Vol] 11.9 g/dL Low 12.0 - 16.0 [facility] Comment on above: Performed By: #### 2 43219 ####[facility],[address] [place], [place] [id number] Lymph # 6.40 x10EE3/UL High 0.80 - 2.80 [facility] Comment on above: Performed By: #### 2 73185 ####[facility],[address] [place] [address] Lymphocytes/100 WBC (Bld) 43.9 % Normal 20.0 - 45.0 [facility] Comment on above: Performed By: #### 2 76086 ####[facility],[address] [place] [address] MANUAL DIFF N/A Normal [facility] Comment on above: Performed By: #### 2 35441 ####[facility],[address] [place] [address] MCH (RBC) [Entitic mass] 30 pg Normal 27 - 33 [facility] Comment on above: Performed By: #### 2 25951 ####[facility],[address] [place] [address] MCHC 33 X10 3 Normal 32 - 36 [facility] Comment on above: Performed By: #### 2 07645 ####[facility],[address] [place] [address] MCV (RBC) [Entitic vol] 93 fL Normal 80 - 99 [facility] Comment on above: Performed By: #### 2 24529 ####[facility],[address] [place] [address] [place] # 1.36 x10EE3/UL High 0.20 - 1.00 [facility] Comment on above: Performed By: #### 2 31040 ####[facility],[address] [place] [address] MONOS % 9.4 % Normal 0.0 - 10.0 [facility] Comment on above: Performed By: #### 2 45931 ####[facility],[address] [place] [address] Morphology Dandy (Bld) [Interp] N/A Normal [facility] Comment on above: Performed By: #### 2 41338 ####[facility],[address] [place] [address] Neut # 6.60 x10EE3/UL Normal 1.50 - 7.10 [facility] Comment on above: Performed By: #### 2 41721 ####[facility],[address] [place] [address] Neutrophils/100 WBC (Bld) 45.3 % Low 46.0 - 76.0 [facility] Comment on above: Performed By: #### 2 29233 ####[facility],[address] [place] [address] PLATELET 608 x10EE3/UL High 150 - 450 [facility] Comment on above: Performed By: #### 2 40614 ####[facility],[address] [place] [address] Platelet mean volume (Bld) [Entitic vol] 7.8 fL Normal 6.6 - 10.5 [facility] Comment on above: Result Comment: AUTO MATED DIFFERENTIAL Performed By: #### 2 65548 ####[facility],[address] [place] [address] RBC 3.92 x 10EE6/UL Low 4.10 - 5.30 [facility] Comment on above: Performed By: #### 2 69020 ####[facility],[address] [place] [address] WBC 14.6 x 10EE3/UL High 4.5 - 10.8 [facility] Comment on above: Performed By: #### 2 82284 ####[facility],[address] [place] [address]40 CHEST 1 VIEWon 11-04-2024 CHEST 1 VIEW Normal [facility] CHEST 1 VIEW (PICC/ET PLACEM ENTon 11-04-2024 CHEST 1 VIEW (PICC/ET PLACEMENT Normal [facility] CMPon 11-04-2024 Albumin Level 3.1 G/dL Low 3.2-4.8 [facility] Comment on above: Performed By: #### L AC #### [place] [address] Albumin/Globulin [Mass ratio] 0.8 {ratio} Low 0.9-1.6 [facility] Comment on above: Performed By: #### L AC #### [address] [address] ALP [Catalytic activity/Vol] 99 U/L Normal 38-126 [facility] Comment on above: Performed By: #### L AC #### [place] [address] ALT [Catalytic activity/Vol] 42 U/L Normal 10-49 [facility] Comment on above: Performed By: #### L AC #### [address] [address] AST [Catalytic activity/Vol] 52 U/L High 8-34 [facility] Comment on above: Performed By: #### L AC #### [place] [id number] Bili Total 0.40 mg/dL Normal 0.20-1.20 [facility] Comment on above: Result Comment: Use of this assay is not recommended for patients undergoing treatment with eltrombopag due to the potential for falsely elevated results. Performed By: #### L AC #### [place] [address] BUN/Creatinine Ratio 23.0 ratio High 10.0-22.0 [facility] Comment on above: Performed By: #### L AC #### [address] [address] Calcium [Mass/Vol] 8.8 mg/dL Normal 8.7-10.4 [facility] Comment on above: Performed By: #### L AC #### [address] [address] Chloride [Moles/Vol] 100 mmol/L Normal 98-110 [facility] Comment on above: Performed By: #### L AC #### [address] [address] CO2 [Moles/Vol] 33 mmol/L High 22-32 [facility] Comment on above: Performed By: #### L AC #### [address] [address] Creatinine [Mass/Vol] 0.74 mg/dL Normal 0.50-1.20 [facility] Comment on above: Result Comment: Test ing performed on Usetrace analyzer using enzymatic creatinine methodology. Performed By: #### L AC #### [address] [address] Electrolyte Balance 9.0 mEq/L Normal 4.0-15.0 [facility] Comment on above: Performed By: #### L AC #### [address] [address] Globulin 3.8 G/dL Normal 1.5-3.8 [facility] Comment on above: Performed By: #### L AC #### [address] [address] Glucose [Mass/Vol] 140 mg/dL High 82-115 [facility] Comment on above: Performed By: #### L AC #### [address] [address] Potassium [Moles/Vol] 3.0 mmol/L Low 3.5-5.0 [facility] Comment on above: Performed By: #### L AC #### [place] [id number] [place] [address] Sodium [Moles/Vol] 142 mmol/L Normal 136-145 [facility] Comment on above: Performed By: #### L AC #### [facility] [address] [place] [address] Total Protein 6.9 G/dL Normal 5.7-8.2 [facility] Comment on above: Performed By: #### L AC #### [address] [address] Urea nitrogen [Mass/Vol] 17.0 mg/dL Normal 8.0-22.0 [facility] Comment on above: Performed By: #### L AC #### [place] [id number] CMP with eGFRon 11-04-2024 AGE 69 years Normal [facility] Comment on above: Performed By: #### 2 77500 ####[facility],[address] [place] [address] 20671 Albumin [Mass/Vol] 3.0 g/dL Low 3.4 - 5.0 [facility] Comment on above: Performed By: #### 2 99160 ####[facility],[address] [place] [address] 23770 Albumin/Globulin [Mass ratio] 0.7 {ratio} Low 0.9 - 1.6 [facility] Comment on above: Performed By: #### 2 22289 ####[facility],[address] [place] [address] ALK PHOS 99 U/L Normal 46 - 116 [facility] Comment on above: Performed By: #### 2 96846 ####[facility],[address] [place] [address]6626 ALT [Catalytic activity/Vol] 39 U/L Normal 16 - 63 [facility] Comment on above: Performed By: #### 2 19410 ####[facility],[address] [place] [address]49 Anion gap [Moles/Vol] 14 mmol/L Normal 10 - 20 [facility] Comment on above: Performed By: #### 2 93838 ####[facility],[address] [place] [address]205 AST [Catalytic activity/Vol] 41 U/L High 13 - 39 [facility] Comment on above: Performed By: #### 2 22667 ####[facility],[address] [place] [address]643 B/C RATIO 12 ratio Normal 0 - 30 [facility] Comment on above: Performed By: #### 2 28310 ####[facility],[address] [place] [address]73 Bilirubin [Mass/Vol] 0.5 mg/dL Normal 0.2 - 1.0 [facility] Comment on above: Performed By: #### 2 30503 ####[facility],[address] [place] [address]951 Calcium [Mass/Vol] 8.5 mg/dL Normal 8.5 - 10.1 [facility] Comment on above: Performed By: #### 2 28497 ####[facility],[address] [place] [address]8477 Chloride [Moles/Vol] 100 mmol/L Normal 98 - 107 [facility] Comment on above: Performed By: #### 2 02038 ####[facility],[address] [place] [address] 18487 CMP with eGFR Normal [facility] Comment on above: Result Comment: COMP REHENSIVE METABOLIC PANEL Performed By: #### 2 85430 ####[facility],[address] [place] [address] 50188 CO2 [Moles/Vol] 28.6 mmol/L Normal 21.0 - 32.0 [facility] Comment on above: Performed By: #### 2 57534 ####[facility],[address] [place] [address]209 Creatinine [Mass/Vol] 1.22 mg/dL High 0.55 - 1.02 [facility] Comment on above: Performed By: #### 2 29624 ####[facility],[address] [place] [address] 99147 eGFR 44 ML/MINUTE Low 60 - 999 [facility] Comment on above: Performed By: #### 2 40194 ####[facility],[address] [place] [address] 53338 eGFR(AA) 53 ML/MINUTE Low 60 - 999 [facility] Comment on above: Result Comment: ACCO RDING TO THE NATIONAL KIDNEY DISEASE EDUCATION PROGRAM(NKDE), A NORMAL eGFRIS A VALUE GREATER THAN OR EQUAL TO 60 ML/MIN/1.73 SQ METERS.CHRONIC KIDNEY DISEASE: <60mL/MIN/1.73 SQ METERSKIDNEY FAILURE: <15mL/MIN/1.73 SQ METERSTHIS TEST SHOULD ONLY BE USED FOR PATIENTS 18 YEARS OF AGE AND OLDER. Performed By: #### 2 88692 ####[facility],[address] [place] [address] Globulin (S) [Mass/Vol] 4.1 g/dL High 1.5 - 3.8 [facility] Comment on above: Performed By: #### 2 21887 ####[facility],[address] [place] [address] 36268 Glucose [Mass/Vol] 296 mg/dL High 74 - 106 [facility] Comment on above: Performed By: #### 2 27639 ####[facility],[address] [place] [address] Potassium [Moles/Vol] 2.6 mmol/L Critically low 3.5 - 5.1 [facility] Comment on above: Result Comment: { CA LLED TO N [place] 07:31 MKY{ READ BACK BY SAME Performed By: #### 2 98541 ####[facility],[address] [place] [address] 8[address]12 Protein [Mass/Vol] 7.1 g/dL Normal 6.4 - 8.2 [facility] Comment on above: Performed By: #### 2 49394 ####[facility],[address] [place] [address] Sodium [Moles/Vol] 140 mmol/L Normal 136 - 145 [facility] Comment on above: Performed By: #### 2 49829 ####[facility],[address] [place] [address] Urea nitrogen [Mass/Vol] 15 mg/dL Normal 7 - 18 [facility] Comment on above: Performed By: #### 2 51089 ####[facility],[address] [place] [address] CORONAVIRUS (SARS) ANTIGEN T ESTon 11-04-2024 EXTERNAL QC DONE? YES Normal [facility] Comment on above: Performed By: #### 2 12899 ####[facility],[address] [place] [address] INTERNAL CONTROL PASS Normal [facility] Comment on above: Performed By: #### 2 90491 ####[facility],[address] [place] [address] SARS ANTIGEN Negative Normal NORMAL: NEGATIVE [facility] Comment on above: Performed By: #### 2 44747 ####[facility],[address] [place] [address] SEND TO ? NO Normal [facility] Comment on above: Result Comment: SARS -CoV-2THIS TEST IS BEING USED UNDER THE FDA EUA PROCEDURE. THIS ASSAY HAS BEENVALIDATED AT [facility] FOR USE WITH NASAL AND NASOPHARYNGEAL SWABSPECIMENS.INTERPRETIVE [...] PROVIDERS IN CONSULTATION WITH PUBLIC [facility]. Performed By: #### 2 97804 ####[facility],[address] [place], [place] [id number] CT ANGIOGRAPHY CHEST W/CONTR Darling 11-04-2024 CT [...] 11/04/2024 8:33:11 PM Ordering Provider: KAYLA RYAN [facility] CT CHEST (PE PROTOCOL)on CT CHEST (PE PROTOCOL) Normal [facility] CULTURE BLOOD [MARIA TERESA]on Microscopic examination of blood, culture CULTURE BLOOD [MARIA TERESA] _BLOOD CULTURE_ [facility] FOR SCANNED REPORT 11/11/24.1113.[facility] Comment on above: Performed By: #### 2 78716 ####[facility],[address] [place] [address] Microscopic examination of blood, culture CULTURE BLOOD [MARIA TERESA] _BLOOD CULTURE_ [facility] AND ATTACHMENTS FOR SCANNED REPORT 11/11/24.1114.DNP.COMP [facility] Comment on above: Performed By: #### 2 37714 ####[facility],[address] [place] [address] CVFLURVon 11-04-2024 FLU A PCR Negative Normal Negative [facility] Comment on above: Result Comment: [place] s [id number] Performed By: #### L AC #### [place] [address] FLU B PCR Negative Normal Negative [facility] Comment on above: Result Comment: [place] [id number] Performed By: #### L AC #### [place] [address] RSV PCR Negative Normal Negative [facility] Comment on above: Result Comment: [place] s [id number] Performed By: #### L AC #### [place] [address] SARS-CoV-2 (COVID-19) RNA ALEJANDRO+probe Ql (Unsp spec) Negative Normal Negative [facility] Comment on above: Result Comment: [place] [phone] This test has been authorized by FDA [...] Performed By: #### L AC #### [place] [address] D-DIMER, QUANTITATIVEon 10-23 D-DIMER QUANT 1795 ng/ml High 0 - 230 [facility] Comment on above: Performed By: #### 2 67100 ####[facility],[address] [place], [place] [address] D-DIMER, QUANTITATIVE Normal [facility] Comment on above: Result Comment: SILVANO T D-DIMER Performed By: #### 2 17388 ####[facility],[address] [place] [address] 17372 FEon 11-04-2024 Iron [Mass/Vol] 18 ug/dL Low 50-170 [facility] Comment on above: Performed By: #### L AC #### [place] [id number] [place] 11-04-2024 Ferritin [Mass/Vol] 88.7 ng/mL Normal 8.0-252.0 [facility] Comment on above: Performed By: #### L AC #### [place] [id number] IBCon 11-04-2024 TIBC 328 mcg/dL Normal 250-500 [facility] Comment on above: Performed By: #### L AC #### [place] [address] INFLUENZA VIRUS RAPID A/Bon 11-04-2024 INFLUENZA VIRUS RAPID A/B Normal [facility] Comment on above: Performed By: #### 2 24338 ####[facility],[address] [place] [address] LABORATORYOrdered By: [employer] on 11-04-2024 Natriuretic peptide.B prohormone N-Terminal [...] Lactic Acid Lvl 1.4 mmol/L Normal 0.5-2.2 [facility] Comment on above: Performed By: #### L AC #### [place] [address] LACTATEon 11-04-2024 Lactate [Moles/Vol] 1.8 mmol/L Normal 0.4 - 2.0 [facility] Comment on above: Performed By: #### 2 40869 ####[facility],[address] [place], [place] [id number] Lactate [Moles/Vol] 4.6 mmol/L Critically high 0.4 - 2.0 [facility] Comment on above: Result Comment: { CA LLED TO N [place] 0727 MKY{ READ BACK BY SAME LACTATE 3 HR NOTIFIED TO: _ENRIQUE_P 11/04/24.MKY. . . LACTATE 3 HR NOTIFIED BY: _MKY 11/04/24.MKY. . . Performed By: #### 2 72723 ####[facility],[address] [place] [address]61 MGon 11-04-2024 Magnesium [Mass/Vol] 1.9 mg/dL Normal 1.6-2.4 [facility] Comment on above: Performed By: #### L AC #### [place] [address] MYCOon 11-04-2024 Mycoplasma IgM Negative Normal [facility] Comment on above: Result Comment: INTE RPRETATION OF MYCOPLASMA IgM: Negative: IgM to M. pneumoniae Absent, or at levels below the assay limit of detection. Positive: IgM to M. pneumoniae Present. Invalid: Test results are invalid due to invalid internal control. Assay was performed in duplicate. Repeat testing is suggested if clinically indicated. Performed By: #### L AC #### [place] [address] NT-proBNPon 11-04-2024 Natriuretic peptide B (Bld) [Mass/Vol] 4211 pg/mL High 0 - 125 [facility] Comment on above: Performed By: #### 2 85084 ####[facility],[address] [place] [address]34 No Panel Informationon 11-04 Legionella Urine Ag Presumptive negative for L. pneumophila serogroup 1 antigen in urine, suggesting no recent or current infection. Legionnaire's disease cannot be ruled out since other serogroups and species may also cause disease. [facility] Streptococcus Pneumoniae Urine Antig Presumptive negative for pneumococcal pneumonia, suggesting no current or recent pneumococcal infection. Infection due to Strep pneumoniae cannot be ruled out since the antigen present in the sample may be below the detection limit of the test. [facility] Comment on above: This test has not be en evaluated on patients taking antibiotics for greater than 24 hours or on patients who have recently completed an antibiotic regimen. The accuracy of this test has not been proven in young children. Microscopic examination of blood, culture Blood Culture: No Growth at [address] [facility] PBNPon 11-04-2024 Natriuretic peptide B (Bld) [Mass/Vol] 7106 pg/mL High 0-900 [facility] Comment on above: Order Comment: use e xisting specimen Performed By: #### L AC #### [place] [address] RSVon 11-04-2024 RSV Normal [facility] Comment on above: Performed By: #### 2 73636 ####[address] [address] TRFon 11-04-2024 Transferrin [Mass/Vol] 278 mg/dL Normal 202-336 [facility] Comment on above: Performed By: #### L AC #### [place] [address] TROPONINon 11-04-2024 HS TROPONIN 27.6 pg/mL Normal 0.0 - 51.4 [facility] Comment on above: Performed By: #### 2 01195 ####[address] [address] URINALYSISon 11-04-2024 Amorphous NONE Normal [facility] Comment on above: Performed By: #### 2 27284 ####[address] [address] Bacteria TRACE Normal [facility] Comment on above: Performed By: #### 2 14733 ####[address] [address] Bilirubin Ql (U) Negative Normal NORMAL: NEGATIVE [facility] Comment on above: Performed By: #### 2 72138 ####[facility],[address] [place] [address]9623 Casts NONE Normal [facility] Comment on above: Performed By: #### 2 30736 ####[facility],[address] [place] [address]72 Clarity (U) clear Normal NORMAL: CLEAR [facility] Comment on above: Performed By: #### 2 78151 ####[facility],[address] [place] [address] 26664 Color (U) yellow Normal NORMAL: YELLOW [facility] Comment on above: Performed By: #### 2 61014 ####[facility],[address] [place] [address] 04013 Crystals LM Nom (Urine sed) NONE Normal [facility] Comment on above: Performed By: #### 2 96984 ####[facility],[address] [place] [address] 87070 Epi Cells NONE Normal [facility] Comment on above: Performed By: #### 2 04642 ####[facility],[address] [place] [address] 79866 Glucose Ql (U) 250 Abnormal NORMAL: NORMAL [facility] Comment on above: Performed By: #### 2 74535 ####[facility],[address] [place] [address] 67910 Hemoglobin Ql (U) 25 Abnormal NORMAL: NEGATIVE [facility] Comment on above: Performed By: #### 2 07283 ####[facility],[address] [place] [address] 54556 Ketone Negative Normal NORMAL: NEGATIVE [facility] Comment on above: Performed By: #### 2 42608 ####[facility],[address] [place] [address] 16145 Leukocytes Negative Normal NORMAL: NEGATIVE [facility] Comment on above: Performed By: #### 2 56014 ####[facility],[address] [place] [address]259 Mucous NONE Normal [facility] Comment on above: Performed By: #### 2 56537 ####[facility],[address] [place] [address] 12767 Nitrite Ql (U) Negative Normal NORMAL: NEGATIVE [facility] Comment on above: Performed By: #### 2 40084 ####[facility],[address] [place] [address] pH (U) 7 [pH] Normal NORMAL: 5.0-8.0 [facility] Comment on above: Performed By: #### 2 81449 ####[facility],[address] [place] [address] Protein Ql (U) 500 Abnormal NORMAL: NEGATIVE [facility] Comment on above: Performed By: #### 2 00642 ####[facility],[address] [place] [address] Rbc 5-10 Normal 0-3/hpf [facility] Comment on above: Performed By: #### 2 45524 ####[facility],[address] [place] [address] Sp [place] 1.010 Normal NORMAL: 1.010-1.030 [facility] Comment on above: Performed By: #### 2 46870 ####[facility],[address] [place], [place] [id number] Specimen Type R Normal [facility] Comment on above: Performed By: #### 2 43980 ####[facility],[address] [place], [place] [id number] Urinalysis dipstick W Reflex Microscopic panel (U) SEE BELOW Normal [facility] Comment on above: Result Comment: MICR OSCOPIC Performed By: #### 2 00481 ####[facility],[address] [place] [address]754 Urobilinog NORM Normal NORMAL: NORMAL [facility] Comment on above: Performed By: #### 2 16342 ####[facility],[address] [place] [address] 38263 Wbc 1-5 Normal 0-5/hpf [facility] Comment on above: Performed By: #### 2 52573 ####[facility],[address] [place] [address] 17651 Yeast NONE Normal [facility] Comment on above: Performed By: #### 2 94806 ####[facility],[address] [place] [address] URINE CULTURE [CCL]on 2024 Bacteria identified Cx Nom (U) Normal [facility] Comment on above: Performed By: #### 2 72907 ####[facility],[address] [place] [address] XR ABDOMEN APon 11-04-2024 XR ABDOMEN AP [...] Date: 11/04/2024 12:56:39 PM Ordering Provider: KAYLA YRAN [facility] XR CHEST 1 VIEWon 11-04-2024 XR [...] 11/04/2024 12:56:39 PM Ordering Provider: KAYLA RYAN [facility] CBC + DIFF DAILYon Baso # 0.04 x10EE3/UL Normal 0.00 - 0.10 [facility] Comment on above: Performed By: #### 2 27760 ####[facility],[address] [place] [address] Basophils/100 WBC (Bld) 0.6 % Normal 0.0 - 2.0 [facility] Comment on above: Performed By: #### 2 24789 ####[facility],[address] [place] [address] CBC + DIFF DAILY Normal [facility] Comment on above: Result Comment: CBC- COMPLETE BLOOD COUNT Performed By: #### 2 12686 ####[place] [address] EO # 0.13 x10EE3/UL Normal 0.00 - 0.50 [facility] Comment on above: Performed By: #### 2 26073 ####[facility],[address] [place], [place] [id number] Eosinophils/100 WBC (Bld) 2.0 % Normal 0.0 - 7.0 [facility] Comment on above: Performed By: #### 2 06483 ####[facility],[address] [place] [address] Erythrocyte distribution width (RBC) [Ratio] 14.2 % Normal 12.0 - 15.6 [facility] Comment on above: Performed By: #### 2 05460 ####[facility],[address] [place] [address] Hematocrit (Bld) [Volume fraction] 34.4 % Normal 34.0 - 46.0 [facility] Comment on above: Performed By: #### 2 73740 ####[facility],[address] [place] [address] Hemoglobin (Bld) [Mass/Vol] 11.3 g/dL Low 12.0 - 16.0 [facility] Comment on above: Performed By: #### 2 92363 ####[facility],[address] [place] [address] Lymph # 1.74 x10EE3/UL Normal 0.80 - 2.80 [facility] Comment on above: Performed By: #### 2 34534 ####[facility],[address] [place], [place] [address] Lymphocytes/100 WBC (Bld) 26.5 % Normal 20.0 - 45.0 [facility] Comment on above: Performed By: #### 2 19905 ####[facility],[address] [place], [place] [id number] MANUAL DIFF N/A Normal [facility] Comment on above: Performed By: #### 2 89757 ####[facility],[address] [place], [place] [id number] MCH (RBC) [Entitic mass] 30 pg Normal 27 - 33 [facility] Comment on above: Performed By: #### 2 72593 ####[facility],[address] [place] [address] MCHC 33 X10 3 Normal 32 - 36 [facility] Comment on above: Performed By: #### 2 68931 ####[facility],[address] [place], [place] [id number] MCV (RBC) [Entitic vol] 93 fL Normal 80 - 99 [facility] Comment on above: Performed By: #### 2 33372 ####[facility],[address] [place] [address] [place] # 0.86 x10EE3/UL Normal 0.20 - 1.00 [facility] Comment on above: Performed By: #### 2 15082 ####[facility],[address] [place] [address] MONOS % 13.1 % High 0.0 - 10.0 [facility] Comment on above: Performed By: #### 2 20862 ####[facility],[address] [place] [address] Morphology Dandy (Bld) [Interp] N/A Normal [facility] Comment on above: Performed By: #### 2 61790 ####[facility],[address] [place] [address] Neut # 3.81 x10EE3/UL Normal 1.50 - 7.10 [facility] Comment on above: Performed By: #### 2 52823 ####[facility],[address] [place] [address] Neutrophils/100 WBC (Bld) 57.8 % Normal 46.0 - 76.0 [facility] Comment on above: Performed By: #### 2 59448 ####[facility],[address] [place] [address] PLATELET 308 x10EE3/UL Normal 150 - 450 [facility] Comment on above: Performed By: #### 2 42603 ####[facility],[address] [place] [address] 39224 Platelet mean volume (Bld) [Entitic vol] 7.4 fL Normal 6.6 - 10.5 [facility] Comment on above: Result Comment: AUTO MATED DIFFERENTIAL Performed By: #### 2 57126 ####[facility],[address] [place] [address] 89286 RBC 3.71 x 10EE6/UL Low 4.10 - 5.30 [facility] Comment on above: Performed By: #### 2 93038 ####[facility],[address] [place] [address] 65373 WBC 6.6 x 10EE3/UL Normal 4.5 - 10.8 [facility] Comment on above: Performed By: #### 2 88311 ####[facility],[address] [place] [address] 26528 CMP with eGFR - DAILYon -0 AGE 69 years Normal [facility] Comment on above: Performed By: #### 2 18089 ####[facility],[address] [place] [address] 10806 Albumin [Mass/Vol] 2.4 g/dL Low 3.4 - 5.0 [facility] Comment on above: Performed By: #### 2 48691 ####[facility],[address] [place] [address] 96422 Albumin/Globulin [Mass ratio] 0.7 {ratio} Low 0.9 - 1.6 [facility] Comment on above: Performed By: #### 2 42963 ####[facility],[address] [place] [address] 69955 ALK PHOS 99 U/L Normal 46 - 116 [facility] Comment on above: Performed By: #### 2 72211 ####[facility],[address] [place] [address] 89596 ALT [Catalytic activity/Vol] 51 U/L Normal 16 - 63 [facility] Comment on above: Performed By: #### 2 38700 ####[facility],[address] [place] [address] 38908 Anion gap [Moles/Vol] 9 mmol/L Low 10 - 20 [facility] Comment on above: Performed By: #### 2 73379 ####[facility],[address] [place] [address] 16430 AST [Catalytic activity/Vol] 31 U/L Normal 13 - 39 [facility] Comment on above: Performed By: #### 2 65923 ####[facility],[address] [place] [address] 01231 B/C RATIO 20 ratio Normal 0 - 30 [facility] Comment on above: Performed By: #### 2 87305 ####[facility],[address] [place] [address] 83217 Bilirubin [Mass/Vol] 0.5 mg/dL Normal 0.2 - 1.0 [facility] Comment on above: Performed By: #### 2 73386 ####[facility],[address] [place] [address] 63683 Calcium [Mass/Vol] 8.7 mg/dL Normal 8.5 - 10.1 [facility] Comment on above: Performed By: #### 2 05011 ####[facility],[address] [place] [address] 48322 Chloride [Moles/Vol] 104 mmol/L Normal 98 - 107 [facility] Comment on above: Performed By: #### 2 84081 ####[facility],[address] [place] [address] 52468 CMP with eGFR - DAILY Normal [facility] Comment on above: Result Comment: COMP REHENSIVE METABOLIC PANEL Performed By: #### 2 84899 ####[facility],[address] [place] [address] 21037 CO2 [Moles/Vol] 31.4 mmol/L Normal 21.0 - 32.0 [facility] Comment on above: Performed By: #### 2 85790 ####[facility],[address] [place] [address] 09589 Creatinine [Mass/Vol] 0.82 mg/dL Normal 0.55 - 1.02 [facility] Comment on above: Performed By: #### 2 17207 ####[facility],[address] [place] [address] GFR/1.73 sq M.predicted among non-blacks MDRD (S/P/Bld) [Vol rate/Area] mL/min/{1.73_m2} Normal 60 - 999 [facility] Comment on above: Performed By: #### 2 36930 ####[facility],[address] [place] [address] Result Comment: ACCO RDING TO THE NATIONAL KIDNEY DISEASE EDUCATION PROGRAM(NKDE), A NORMAL eGFRIS A VALUE GREATER THAN OR EQUAL TO 60 ML/MIN/1.73 SQ METERS.CHRONIC KIDNEY DISEASE: <60mL/MIN/1.73 SQ METERSKIDNEY FAILURE: <15mL/MIN/1.73 SQ METERS Globulin (S) [Mass/Vol] 3.6 g/dL Normal 1.5 - 3.8 [facility] Comment on above: Performed By: #### 2 84587 ####[facility],[address] [place] [address] 07490 Glucose [Mass/Vol] 121 mg/dL High 74 - 106 [facility] Comment on above: Performed By: #### 2 19785 ####[facility],[address] [place] [address] 17322 Potassium [Moles/Vol] 3.4 mmol/L Low 3.5 - 5.1 [facility] Comment on above: Performed By: #### 2 67153 ####[facility],[address] [place] [address] 38450 Protein [Mass/Vol] 6.0 g/dL Low 6.4 - 8.2 [facility] Comment on above: Performed By: #### 2 36047 ####[facility],[address] [place] [address] 81923 Sodium [Moles/Vol] 141 mmol/L Normal 136 - 145 [facility] Comment on above: Performed By: #### 2 25117 ####[facility],[address] [place] [address] Urea nitrogen [Mass/Vol] 16 mg/dL Normal 7 - 18 [facility] Comment on above: Performed By: #### 2 74177 ####[facility],[address] [place] [address] CBC + DIFF DAILYon 4 Baso # 0.05 x10EE3/UL Normal 0.00 - 0.10 [facility] Comment on above: Performed By: #### 2 72199 ####[facility],[address] [place] [address] 59549 Basophils/100 WBC (Bld) 0.7 % Normal 0.0 - 2.0 [facility] Comment on above: Performed By: #### 2 77072 ####[facility],[address] [place] [address] 50379 CBC + DIFF DAILY Normal [facility] Comment on above: Result Comment: CBC- COMPLETE BLOOD COUNT Performed By: #### 2 71158 ####[facility],[address] [place] [address] 11600 EO # 0.07 x10EE3/UL Normal 0.00 - 0.50 [facility] Comment on above: Performed By: #### 2 69128 ####[facility],[address] [place] [address] 04775 Eosinophils/100 WBC (Bld) 1.1 % Normal 0.0 - 7.0 [facility] Comment on above: Performed By: #### 2 75602 ####[facility],[address] [place], [place] [address] Erythrocyte distribution width (RBC) [Ratio] 14.0 % Normal 12.0 - 15.6 [facility] Comment on above: Performed By: #### 2 70905 ####[facility],[address] [place] [address] Hematocrit (Bld) [Volume fraction] 32.5 % Low 34.0 - 46.0 [facility] Comment on above: Performed By: #### 2 83660 ####[facility],[address] [place] [address] Hemoglobin (Bld) [Mass/Vol] 10.8 g/dL Low 12.0 - 16.0 [facility] Comment on above: Performed By: #### 2 54726 ####[facility],[address] [place] [address] Lymph # 1.69 x10EE3/UL Normal 0.80 - 2.80 [facility] Comment on above: Performed By: #### 2 10240 ####[facility],[address] [place] [address] Lymphocytes/100 WBC (Bld) 25.1 % Normal 20.0 - 45.0 [facility] Comment on above: Performed By: #### 2 33114 ####[facility],[address] [place] [address] MANUAL DIFF N/A Normal [facility] Comment on above: Performed By: #### 2 55300 ####[facility],[address] [place] [address] MCH (RBC) [Entitic mass] 31 pg Normal 27 - 33 [facility] Comment on above: Performed By: #### 2 55013 ####[place] [address] MCHC 33 X10 3 Normal 32 - 36 [facility] Comment on above: Performed By: #### 2 57824 ####[facility],[address] [place] [address] MCV (RBC) [Entitic vol] 92 fL Normal 80 - 99 [facility] Comment on above: Performed By: #### 2 07269 ####[facility],[address] [place] [address] [place] # 0.93 x10EE3/UL Normal 0.20 - 1.00 [facility] Comment on above: Performed By: #### 2 85887 ####[facility],[address] [place] [address] MONOS % 13.8 % High 0.0 - 10.0 [facility] Comment on above: Performed By: #### 2 74052 ####[facility],[address] [place] [address] Morphology Dandy (Bld) [Interp] N/A Normal [facility] Comment on above: Performed By: #### 2 86241 ####[facility],[address] [place] [address] Neut # 3.99 x10EE3/UL Normal 1.50 - 7.10 [facility] Comment on above: Performed By: #### 2 99773 ####[place] [address] Neutrophils/100 WBC (Bld) 59.3 % Normal 46.0 - 76.0 [facility] Comment on above: Performed By: #### 2 37782 ####[facility],[address] [place] [address] PLATELET 303 x10EE3/UL Normal 150 - 450 [facility] Comment on above: Performed By: #### 2 37800 ####[place] [address] Platelet mean volume (Bld) [Entitic vol] 7.6 fL Normal 6.6 - 10.5 [facility] Comment on above: Result Comment: AUTO MATED DIFFERENTIAL Performed By: #### 2 35692 ####[facility],[address] [place] [address] 44244 RBC 3.54 x 10EE6/UL Low 4.10 - 5.30 [facility] Comment on above: Performed By: #### 2 35236 ####[facility],[address] [place] [address] 80328 WBC 6.7 x 10EE3/UL Normal 4.5 - 10.8 [facility] Comment on above: Performed By: #### 2 56437 ####[facility],[address] [place] [address] 67592 CMP with eGFR - DAILYon 12-3 AGE 69 years Normal [facility] Comment on above: Performed By: #### 2 18287 ####[facility],[address] [place] [address] 22231 Albumin [Mass/Vol] 2.5 g/dL Low 3.4 - 5.0 [facility] Comment on above: Performed By: #### 2 58971 ####[facility],[address] [place] [address] 07186 Albumin/Globulin [Mass ratio] 0.7 {ratio} Low 0.9 - 1.6 [facility] Comment on above: Performed By: #### 2 70101 ####[facility],[address] [place] [address] 22040 ALK PHOS 103 U/L Normal 46 - 116 [facility] Comment on above: Performed By: #### 2 34504 ####[facility],[address] [place] [address] 69983 ALT [Catalytic activity/Vol] 58 U/L Normal 16 - 63 [facility] Comment on above: Performed By: #### 2 76369 ####[facility],[address] [place] [address] 16352 Anion gap [Moles/Vol] 13 mmol/L Normal 10 - 20 [facility] Comment on above: Performed By: #### 2 62949 ####[facility],[address] [place] [address] 81460 AST [Catalytic activity/Vol] 34 U/L Normal 13 - 39 [facility] Comment on above: Performed By: #### 2 50964 ####[facility],[address] [place] [address] 30173 B/C RATIO 18 ratio Normal 0 - 30 [facility] Comment on above: Performed By: #### 2 78560 ####[facility],[address] [place] [address] 27244 Bilirubin [Mass/Vol] 0.6 mg/dL Normal 0.2 - 1.0 [facility] Comment on above: Performed By: #### 2 92241 ####[facility],[address] [place] [address] 18757 Calcium [Mass/Vol] 8.6 mg/dL Normal 8.5 - 10.1 [facility] Comment on above: Performed By: #### 2 44696 ####[facility],[address] [place] [address] 15807 Chloride [Moles/Vol] 103 mmol/L Normal 98 - 107 [facility] Comment on above: Performed By: #### 2 89976 ####[facility],[address] [place] [address] 65973 CMP with eGFR - DAILY Normal [facility] Comment on above: Result Comment: COMP REHENSIVE METABOLIC PANEL Performed By: #### 2 98172 ####[facility],[address] [place] [address] 64595 CO2 [Moles/Vol] 27.4 mmol/L Normal 21.0 - 32.0 [facility] Comment on above: Performed By: #### 2 01314 ####[facility],[address] [place] [address] 18390 Creatinine [Mass/Vol] 0.84 mg/dL Normal 0.55 - 1.02 [facility] Comment on above: Performed By: #### 2 31565 ####[facility],[address] [place] [address] 99588 GFR/1.73 sq M.predicted among non-blacks MDRD (S/P/Bld) [Vol rate/Area] mL/min/{1.73_m2} Normal 60 - 999 [facility] Comment on above: Performed By: #### 2 66804 ####[facility],[address] [place] [address] Result Comment: ACCO RDING TO THE NATIONAL KIDNEY DISEASE EDUCATION PROGRAM(NKDE), A NORMAL eGFRIS A VALUE GREATER THAN OR EQUAL TO 60 ML/MIN/1.73 SQ METERS.CHRONIC KIDNEY DISEASE: <60mL/MIN/1.73 SQ METERSKIDNEY FAILURE: <15mL/MIN/1.73 SQ METERS Globulin (S) [Mass/Vol] 3.4 g/dL Normal 1.5 - 3.8 [facility] Comment on above: Performed By: #### 2 23748 ####[place] [id number] Glucose [Mass/Vol] 93 mg/dL Normal 74 - 106 [facility] Comment on above: Performed By: #### 2 53453 ####[address] [address] Potassium [Moles/Vol] 2.9 mmol/L Critically low 3.5 - 5.1 [facility] Comment on above: Result Comment: { CA LLED TO MED SURG AT 0738{ READ BACK BY KS TO CWB Performed By: #### 2 10287 ####[facility],[address] [place] [address] 38827 Protein [Mass/Vol] 5.9 g/dL Low 6.4 - 8.2 [facility] Comment on above: Performed By: #### 2 69734 ####[address] [address] Sodium [Moles/Vol] 140 mmol/L Normal 136 - 145 [facility] Comment on above: Performed By: #### 2 93366 ####[facility],[address] [place] [address] Urea nitrogen [Mass/Vol] 15 mg/dL Normal 7 - 18 [facility] Comment on above: Performed By: #### 2 68648 ####[facility],[address] [place] [address] CV ECHO COMPLETEon CV ECHO COMPLETE Normal [facility] CBC + DIFFon 10-21-2024 Baso # 0.02 x10EE3/UL Normal 0.00 - 0.10 [facility] Comment on above: Performed By: #### 2 96232 ####[facility],[address] [place] [address] Basophils/100 WBC (Bld) 0.3 % Normal 0.0 - 2.0 [facility] Comment on above: Performed By: #### 2 90219 ####[facility],[address] [place] [address] CBC + DIFF Normal [facility] Comment on above: Result Comment: CBC- COMPLETE BLOOD COUNT Performed By: #### 2 39438 ####[facility],[address] [place] [address] EO # 0.09 x10EE3/UL Normal 0.00 - 0.50 [facility] Comment on above: Performed By: #### 2 51913 ####[facility],[address] [place] [address] Eosinophils/100 WBC (Bld) 1.3 % Normal 0.0 - 7.0 [facility] Comment on above: Performed By: #### 2 40412 ####[facility],[address] [place] [address] Erythrocyte distribution width (RBC) [Ratio] 14.3 % Normal 12.0 - 15.6 [facility] Comment on above: Performed By: #### 2 50667 ####[facility],[address] [place] [address] Hematocrit (Bld) [Volume fraction] 32.6 % Low 34.0 - 46.0 [facility] Comment on above: Performed By: #### 2 60061 ####[facility],[address] [place] [address] 56150 Hemoglobin (Bld) [Mass/Vol] 10.9 g/dL Low 12.0 - 16.0 [facility] Comment on above: Performed By: #### 2 87412 ####[facility],[address] [place] [address] Lymph # 1.38 x10EE3/UL Normal 0.80 - 2.80 [facility] Comment on above: Performed By: #### 2 37355 ####[facility],[address] [place], [place] [address] Lymphocytes/100 WBC (Bld) 19.4 % Low 20.0 - 45.0 [facility] Comment on above: Performed By: #### 2 76862 ####[facility],[address] [place] [address] 05257 MANUAL DIFF N/A Normal [facility] Comment on above: Performed By: #### 2 60187 ####[facility],[address] [place] [address] 69646 MCH (RBC) [Entitic mass] 31 pg Normal 27 - 33 [facility] Comment on above: Performed By: #### 2 43412 ####[facility],[address] [place] [address] 14871 MCHC 34 X10 3 Normal 32 - 36 [facility] Comment on above: Performed By: #### 2 83033 ####[facility],[address] [place] [address] 95191 MCV (RBC) [Entitic vol] 92 fL Normal 80 - 99 [facility] Comment on above: Performed By: #### 2 52260 ####[facility],[address] [place] [address] 70700 [place] # 0.76 x10EE3/UL Normal 0.20 - 1.00 [facility] Comment on above: Performed By: #### 2 43081 ####[facility],[address] [place] [address] 65499 MONOS % 10.7 % High 0.0 - 10.0 [facility] Comment on above: Performed By: #### 2 07003 ####[facility],[address] [place] [address] 86472 Morphology Dandy (Bld) [Interp] N/A Normal [facility] Comment on above: Performed By: #### 2 81282 ####[facility],[address] [place] [address] 09374 Neut # 4.87 x10EE3/UL Normal 1.50 - 7.10 [facility] Comment on above: Performed By: #### 2 92636 ####[facility],[address] [place] [address] 24013 Neutrophils/100 WBC (Bld) 68.4 % Normal 46.0 - 76.0 [facility] Comment on above: Performed By: #### 2 27482 ####[facility],[address] [place] [address] 69437 PLATELET 301 x10EE3/UL Normal 150 - 450 [facility] Comment on above: Performed By: #### 2 09709 ####[facility],[address] [place] [address] 59058 Platelet mean volume (Bld) [Entitic vol] 7.2 fL Normal 6.6 - 10.5 [facility] Comment on above: Result Comment: AUTO MATED DIFFERENTIAL Performed By: #### 2 14437 ####[facility],[address] [place] [address] 11683 RBC 3.56 x 10EE6/UL Low 4.10 - 5.30 [facility] Comment on above: Performed By: #### 2 51151 ####[facility],[address] [place] [address] 75156 WBC 7.1 x 10EE3/UL Normal 4.5 - 10.8 [facility] Comment on above: Performed By: #### 2 45181 ####[facility],[address] [place], [place] [address] CHEST 1 VIEWon 10-21-2024 CHEST 1 VIEW Normal [facility] CMP with eGFRon 10-21-2024 AGE 69 years Normal [facility] Comment on above: Performed By: #### 2 49501 ####[facility],[address] [place], [place] [address] Albumin [Mass/Vol] 2.7 g/dL Low 3.4 - 5.0 [facility] Comment on above: Performed By: #### 2 47001 ####[facility],[address] [place], [place] [address] Albumin/Globulin [Mass ratio] 0.8 {ratio} Low 0.9 - 1.6 [facility] Comment on above: Performed By: #### 2 00322 ####[facility],[address] [place], [place] [address] ALK PHOS 111 U/L Normal 46 - 116 [facility] Comment on above: Performed By: #### 2 22153 ####[facility],[address] [place] [address] 66519 ALT [Catalytic activity/Vol] 65 U/L High 16 - 63 [facility] Comment on above: Performed By: #### 2 55606 ####[facility],[address] [place] [address] 70876 Anion gap [Moles/Vol] 14 mmol/L Normal 10 - 20 [facility] Comment on above: Performed By: #### 2 92534 ####[facility],[address] [place] [address] 46411 AST [Catalytic activity/Vol] 38 U/L Normal 13 - 39 [facility] Comment on above: Performed By: #### 2 18171 ####[facility],[address] [place] [address] 96495 B/C RATIO 15 ratio Normal 0 - 30 [facility] Comment on above: Performed By: #### 2 43490 ####[facility],[address] [place] [address] 53581 Bilirubin [Mass/Vol] 0.7 mg/dL Normal 0.2 - 1.0 [facility] Comment on above: Performed By: #### 2 92154 ####[facility],[address] [place] [address] 24489 Calcium [Mass/Vol] 8.5 mg/dL Normal 8.5 - 10.1 [facility] Comment on above: Performed By: #### 2 65780 ####[facility],[address] [place], [place] [address] Chloride [Moles/Vol] 104 mmol/L Normal 98 - 107 [facility] Comment on above: Performed By: #### 2 79553 ####[facility],[address] [place] [address] CMP with eGFR Normal [facility] Comment on above: Result Comment: COMP REHENSIVE METABOLIC PANEL Performed By: #### 2 03497 ####[facility],[address] [place] [address] 23162 CO2 [Moles/Vol] 27.0 mmol/L Normal 21.0 - 32.0 [facility] Comment on above: Performed By: #### 2 70998 ####[facility],[address] [place] [address] 36516 Creatinine [Mass/Vol] 0.78 mg/dL Normal 0.55 - 1.02 [facility] Comment on above: Performed By: #### 2 89789 ####[facility],[address] [place] [address] 88804 GFR/1.73 sq M.predicted among non-blacks MDRD (S/P/Bld) [Vol rate/Area] mL/min/{1.73_m2} Normal 60 - 999 [facility] Comment on above: Performed By: #### 2 04574 ####[facility],[address] [place] [address] Result Comment: ACCO RDING TO THE NATIONAL KIDNEY DISEASE EDUCATION PROGRAM(NKDE), A NORMAL eGFRIS A VALUE GREATER THAN OR EQUAL TO 60 ML/MIN/1.73 SQ METERS.CHRONIC KIDNEY DISEASE: <60mL/MIN/1.73 SQ METERSKIDNEY FAILURE: <15mL/MIN/1.73 SQ METERSTHIS TEST SHOULD ONLY BE USED FOR PATIENTS 18 YEARS OF AGE AND OLDER. Globulin (S) [Mass/Vol] 3.5 g/dL Normal 1.5 - 3.8 [facility] Comment on above: Performed By: #### 2 02100 ####[facility],[address] [place] [address] 84933 Glucose [Mass/Vol] 92 mg/dL Normal 74 - 106 [facility] Comment on above: Performed By: #### 2 30797 ####[facility],[address] [place] [address] 81118 Potassium [Moles/Vol] 3.5 mmol/L Normal 3.5 - 5.1 [facility] Comment on above: Performed By: #### 2 31188 ####[facility],[address] [place] [address] 42773 Protein [Mass/Vol] 6.2 g/dL Low 6.4 - 8.2 [facility] Comment on above: Performed By: #### 2 04849 ####[facility],[address] [place] [address] 97819 Sodium [Moles/Vol] 141 mmol/L Normal 136 - 145 [facility] Comment on above: Performed By: #### 2 50605 ####[facility],[address] [place] [address] Urea nitrogen [Mass/Vol] 12 mg/dL Normal 7 - 18 [facility] Comment on above: Performed By: #### 2 09373 ####[facility],[address] [place] [address] CORONAVIRUS (SARS) ANTIGEN T ESTon 10-21-2024 EXTERNAL QC DONE? YES Normal [facility] Comment on above: Performed By: #### 2 00315 ####[facility],[address] [place] [address] INTERNAL CONTROL PASS Normal [facility] Comment on above: Performed By: #### 2 10729 ####[facility],[address] [place] [address] SARS ANTIGEN Negative Normal NORMAL: NEGATIVE [facility] Comment on above: Performed By: #### 2 30485 ####[facility],[address] [place] [address] SEND TO ? NO Normal [facility] Comment on above: Result Comment: SARS -CoV-2THIS TEST IS BEING USED UNDER THE FDA EUA PROCEDURE. THIS ASSAY [facility] BEEN[facility] AT [facility] WITH NASAL AND NASOPHARYNGEAL SWABSPECIMENS.INTERPRETIVE [...] BECONSIDERED BY HEALTHCARE PROVIDERS IN CONSULTATION WITH [facility]. Performed By: #### 2 [id number] ####[facility],[address] [place], [place] [id number] ED MED ADMINISTRATION DETAIL on 10-21-2024 ED MED ADMINISTRATION DETAIL Normal [facility] ED NURSES CLINICAL NOTEon ED NURSES CLINICAL NOTE Normal [facility] ED ORDER SHEET (CPOE ONLY)on 10-21-2024 ED ORDER SHEET (CPOE ONLY) Normal [facility] ED PHYSICIAN CLINICAL REPORT on 10-21-2024 ED PHYSICIAN CLINICAL REPORT Normal [facility] ED PHYSICIAN DISCHARGE REPOR Ton 10-21-2024 ED PHYSICIAN DISCHARGE REPORT Normal [facility] ED SUPER BILLon 10-21-2024 ED SUPER BILL Normal [facility] ED VISIT SUMMARYon ED VISIT SUMMARY Normal [facility] ED VITALS FLOW SHEETon 10-21 ED VITALS FLOW SHEET Normal [facility] INFLUENZA VIRUS RAPID A/Bon 10-21-2024 INFLUENZA VIRUS RAPID A/B Normal [facility] Comment on above: Performed By: #### 2 25952 ####[facility],[address] [place], [place] [id number] NT-proBNPon 10-21-2024 Natriuretic peptide B (Bld) [Mass/Vol] 3719 pg/mL High 0 - 125 [facility] Comment on above: Performed By: #### 2 17021 ####[facility],[address] [place] [address] TROPONINon 10-21-2024 HS TROPONIN 20.1 pg/mL Normal 0.0 - 51.4 [facility] Comment on above: Performed By: #### 2 81330 ####[facility],[address] [place] [address] ED MED ADMINISTRATION DETAIL on 10-10-2024 ED MED ADMINISTRATION DETAIL Normal [facility] ED NURSES CLINICAL NOTEon ED NURSES CLINICAL NOTE Normal [facility] ED ORDER SHEET (CPOE ONLY)on 10-10-2024 ED ORDER SHEET (CPOE ONLY) Normal [facility] ED PHYSICIAN CLINICAL REPORT on 10-10-2024 ED PHYSICIAN CLINICAL REPORT Normal [facility] ED PHYSICIAN DISCHARGE REPOR Ton 10-10-2024 ED PHYSICIAN DISCHARGE REPORT Normal [facility] ED SUPER BILLon 10-10-2024 ED SUPER BILL Normal [facility] ED VISIT SUMMARYon ED VISIT SUMMARY Normal [facility] ED VITALS FLOW SHEETon 10-10 ED VITALS FLOW SHEET Normal [facility] CT BRAIN W/O CONTRASTon 09-22 CT BRAIN W/O CONTRAST Normal [facility] CT CERVICAL W/O CONTRASTon 12-10-2023 CT CERVICAL W/O CONTRAST Normal [facility] CT FACIAL BONES W/O CONTRAST on 10-09-2024 CT FACIAL BONES W/O CONTRAST Normal [facility] BMP with eGFRon 10-06-2024 AGE 69 years Normal [facility] Comment on above: Performed By: #### 2 09762 ####[facility],[address] [place] [address] Anion gap [Moles/Vol] 13 mmol/L Normal 10 - 20 [facility] Comment on above: Performed By: #### 2 17924 ####[facility],[address] [place] [address] BMP with eGFR Normal [facility] Comment on above: Result Comment: BASI C METABOLIC PANEL Performed By: #### 2 10408 ####[facility],[address] [place] [address] 18992 Calcium [Mass/Vol] 8.5 mg/dL Normal 8.5 - 10.1 [facility] Comment on above: Performed By: #### 2 39431 ####[facility],[address] [place] [address] 32863 Chloride [Moles/Vol] 101 mmol/L Normal 98 - 107 [facility] Comment on above: Performed By: #### 2 80125 ####[facility],[address] [place] [address] 75615 CO2 [Moles/Vol] 27.0 mmol/L Normal 21.0 - 32.0 [facility] Comment on above: Performed By: #### 2 85309 ####[facility],[address] [place] [address] 13550 Creatinine [Mass/Vol] 1.11 mg/dL High 0.55 - 1.02 [facility] Comment on above: Performed By: #### 2 43475 ####[facility],[address] [place] [address] 70882 eGFR 49 ML/MINUTE Low 60 - 999 [facility] Comment on above: Performed By: #### 2 15641 ####[facility],[address] [place] [address] 54196 eGFR(AA) 59 ML/MINUTE Low 60 - 999 [facility] Comment on above: Result Comment: ACCO RDING TO THE NATIONAL KIDNEY DISEASE EDUCATION PROGRAM(NKDE), A NORMAL eGFRIS A VALUE GREATER THAN OR EQUAL TO 60 ML/MIN/1.73 SQ METERS.CHRONIC KIDNEY DISEASE: <60mL/MIN/1.73 SQ METERSKIDNEY FAILURE: <15mL/MIN/1.73 SQ METERSTHIS TEST SHOULD ONLY BE USED FOR PATIENTS 18 YEARS OF AGE AND OLDER. Performed By: #### 2 58794 ####[facility],[address] [place] [address] 53425 Glucose [Mass/Vol] 197 mg/dL High 74 - 106 [facility] Comment on above: Performed By: #### 2 83161 ####[facility],[address] [place] [address] 04623 Potassium [Moles/Vol] 3.7 mmol/L Normal 3.5 - 5.1 [facility] Comment on above: Performed By: #### 2 91574 ####[facility],[address] [place] [address] 13376 Sodium [Moles/Vol] 137 mmol/L Normal 136 - 145 [facility] Comment on above: Performed By: #### 2 91200 ####[address] [address] Urea nitrogen [Mass/Vol] 39 mg/dL High 7 - 18 [facility] Comment on above: Performed By: #### 2 66468 ####[facility],[address] [place] [address] 13799 C-REACTIVE PROTEINon 024 CRP [Mass/Vol] mg/L Normal 0.00 - 0.90 [facility] Comment on above: Performed By: #### 2 82812 ####[address] [address] CBC + DIFFon 10-05-2024 Baso # 0.02 x10EE3/UL Normal 0.00 - 0.10 [facility] Comment on above: Performed By: #### 2 43262 ####[address] [address] Basophils/100 WBC (Bld) 0.2 % Normal 0.0 - 2.0 [facility] Comment on above: Performed By: #### 2 75816 ####[facility],[address] [place] [address] CBC + DIFF Normal [facility] Comment on above: Result Comment: CBC- COMPLETE BLOOD COUNT Performed By: #### 2 75822 ####[facility],[address] [place] [address] EO # 0.04 x10EE3/UL Normal 0.00 - 0.50 [facility] Comment on above: Performed By: #### 2 33069 ####[facility],[address] [place] [address] Eosinophils/100 WBC (Bld) 0.3 % Normal 0.0 - 7.0 [facility] Comment on above: Performed By: #### 2 08485 ####[facility],[address] [place] [address] Erythrocyte distribution width (RBC) [Ratio] 14.3 % Normal 12.0 - 15.6 [facility] Comment on above: Performed By: #### 2 97531 ####[facility],[address] [place] [address] Hematocrit (Bld) [Volume fraction] 37.0 % Normal 34.0 - 46.0 [facility] Comment on above: Performed By: #### 2 77159 ####[facility],[address] [place] [address] Hemoglobin (Bld) [Mass/Vol] 12.0 g/dL Normal 12.0 - 16.0 [facility] Comment on above: Performed By: #### 2 11829 ####[facility],[address] [place], [place] [address] Lymph # 0.94 x10EE3/UL Normal 0.80 - 2.80 [facility] Comment on above: Performed By: #### 2 15959 ####[facility],[address] [place], [place] [address] Lymphocytes/100 WBC (Bld) 8.5 % Low 20.0 - 45.0 [facility] Comment on above: Performed By: #### 2 46817 ####[facility],[address] [place] [address] MANUAL DIFF N/A Normal [facility] Comment on above: Performed By: #### 2 25080 ####[facility],[address] [place] [address] MCH (RBC) [Entitic mass] 30 pg Normal 27 - 33 [facility] Comment on above: Performed By: #### 2 51820 ####[facility],[address] [place] [address] MCHC 33 X10 3 Normal 32 - 36 [facility] Comment on above: Performed By: #### 2 87359 ####[facility],[address] [place] [address] MCV (RBC) [Entitic vol] 92 fL Normal 80 - 99 [facility] Comment on above: Performed By: #### 2 63861 ####[facility],[address] [place] [address] [place] # 0.33 x10EE3/UL Normal 0.20 - 1.00 [facility] Comment on above: Performed By: #### 2 05399 ####[facility],[address] [place] [address] MONOS % 3.0 % Normal 0.0 - 10.0 [facility] Comment on above: Performed By: #### 2 83828 ####[facility],[address] [place] [address] Morphology Dandy (Bld) [Interp] N/A Normal [facility] Comment on above: Performed By: #### 2 99229 ####[facility],[address] [place] [address] Neut # 9.76 x10EE3/UL High 1.50 - 7.10 [facility] Comment on above: Performed By: #### 2 23655 ####[facility],[address] [place] [address] 11641 Neutrophils/100 WBC (Bld) 88.0 % High 46.0 - 76.0 [facility] Comment on above: Performed By: #### 2 18082 ####[facility],[address] [place] [address] 17892 PLATELET 402 x10EE3/UL Normal 150 - 450 [facility] Comment on above: Performed By: #### 2 70692 ####[facility],[address] [place] [address] 52918 Platelet mean volume (Bld) [Entitic vol] 7.2 fL Normal 6.6 - 10.5 [facility] Comment on above: Result Comment: AUTO MATED DIFFERENTIAL Performed By: #### 2 85602 ####[facility],[address] [place] [address] 08683 RBC 4.00 x 10EE6/UL Low 4.10 - 5.30 [facility] Comment on above: Performed By: #### 2 52205 ####[facility],[address] [place] [address] 73703 WBC 11.1 x 10EE3/UL High 4.5 - 10.8 [facility] Comment on above: Performed By: #### 2 06962 ####[facility],[address] [place] [address] 70871 CHEST 1 VIEWon 10-05-2024 CHEST 1 VIEW Normal [facility] CMP with eGFRon 10-05-2024 AGE 69 years Normal [facility] Comment on above: Performed By: #### 2 37774 ####[facility],[address] [place] [address] 02912 Albumin [Mass/Vol] 2.4 g/dL Low 3.4 - 5.0 [facility] Comment on above: Performed By: #### 2 10263 ####[facility],[address] [place] [address] 69203 Albumin/Globulin [Mass ratio] 0.7 {ratio} Low 0.9 - 1.6 [facility] Comment on above: Performed By: #### 2 23278 ####[facility],[address] [place] [address] 07399 ALK PHOS 80 U/L Normal 46 - 116 [facility] Comment on above: Performed By: #### 2 80072 ####[facility],[address] [place] [address] 55867 ALT [Catalytic activity/Vol] 44 U/L Normal 16 - 63 [facility] Comment on above: Performed By: #### 2 25261 ####[facility],[address] [place] [address] 14120 Anion gap [Moles/Vol] 10 mmol/L Normal 10 - 20 [facility] Comment on above: Performed By: #### 2 75671 ####[facility],[address] [place] [address] 01821 AST [Catalytic activity/Vol] 38 U/L Normal 13 - 39 [facility] Comment on above: Performed By: #### 2 02972 ####[facility],[address] [place] [address] 39289 B/C RATIO 29 ratio Normal 0 - 30 [facility] Comment on above: Performed By: #### 2 12513 ####[facility],[address] [place] [address] 10708 Bilirubin [Mass/Vol] 0.3 mg/dL Normal 0.2 - 1.0 [facility] Comment on above: Performed By: #### 2 82075 ####[facility],[address] [place] [address] 71160 Calcium [Mass/Vol] 8.4 mg/dL Low 8.5 - 10.1 [facility] Comment on above: Performed By: #### 2 67952 ####[facility],[address] [place] [address] 68712 Chloride [Moles/Vol] 102 mmol/L Normal 98 - 107 [facility] Comment on above: Performed By: #### 2 91968 ####[facility],[address] [place] [address] 78273 CMP with eGFR Normal [facility] Comment on above: Result Comment: COMP REHENSIVE METABOLIC PANEL Performed By: #### 2 56623 ####[facility],[address] [place], [place] [address] CO2 [Moles/Vol] 29.0 mmol/L Normal 21.0 - 32.0 [facility] Comment on above: Performed By: #### 2 33787 ####[facility],[address] [place] [address] Creatinine [Mass/Vol] 1.22 mg/dL High 0.55 - 1.02 [facility] Comment on above: Performed By: #### 2 18149 ####[facility],[address] [place], [place] [address] eGFR 44 ML/MINUTE Low 60 - 999 [facility] Comment on above: Performed By: #### 2 80666 ####[facility],[address] [place], [place] [id number] eGFR(AA) 53 ML/MINUTE Low 60 - 999 [facility] Comment on above: Result Comment: ACCO RDING TO THE NATIONAL KIDNEY DISEASE EDUCATION PROGRAM(NKDE), A NORMAL eGFRIS A VALUE GREATER THAN OR EQUAL TO 60 ML/MIN/1.73 SQ METERS.CHRONIC KIDNEY DISEASE: <60mL/MIN/1.73 SQ METERSKIDNEY FAILURE: <15mL/MIN/1.73 SQ METERSTHIS TEST SHOULD ONLY BE USED FOR PATIENTS 18 YEARS OF AGE AND OLDER. Performed By: #### 2 55179 ####[facility],[address] [place], [place] [address] Globulin (S) [Mass/Vol] 3.5 g/dL Normal 1.5 - 3.8 [facility] Comment on above: Performed By: #### 2 66640 ####[facility],[address] [place] [address] 76752 Glucose [Mass/Vol] 154 mg/dL High 74 - 106 [facility] Comment on above: Performed By: #### 2 43176 ####[facility],[address] [place] [address] 72761 Potassium [Moles/Vol] 3.7 mmol/L Normal 3.5 - 5.1 [facility] Comment on above: Performed By: #### 2 83296 ####[facility],[address] [place] [address] 41219 Protein [Mass/Vol] 5.9 g/dL Low 6.4 - 8.2 [facility] Comment on above: Performed By: #### 2 30804 ####[facility],[address] [place] [address] 87454 Sodium [Moles/Vol] 137 mmol/L Normal 136 - 145 [facility] Comment on above: Performed By: #### 2 59809 ####[facility],[address] [place] [address] 52389 Urea nitrogen [Mass/Vol] 35 mg/dL High 7 - 18 [facility] Comment on above: Performed By: #### 2 74659 ####[facility],[address] [place] [address] 18273 BMP with eGFRon 10-04-2024 AGE 69 years Normal [facility] Comment on above: Performed By: #### 2 36538 ####[facility],[address] [place] [address] 65004 Anion gap [Moles/Vol] 9 mmol/L Low 10 - 20 [facility] Comment on above: Performed By: #### 2 37480 ####[facility],[address] [place] [address] 36498 BMP with eGFR Normal [facility] Comment on above: Result Comment: BASI C METABOLIC PANEL Performed By: #### 2 54898 ####[facility],[address] [place] [address] 47642 Calcium [Mass/Vol] 8.3 mg/dL Low 8.5 - 10.1 [facility] Comment on above: Performed By: #### 2 26233 ####[facility],[address] [place] [address] 57865 Chloride [Moles/Vol] 99 mmol/L Normal 98 - 107 [facility] Comment on above: Performed By: #### 2 39858 ####[facility],[address] [place] [address] 61241 CO2 [Moles/Vol] 32.2 mmol/L High 21.0 - 32.0 [facility] Comment on above: Performed By: #### 2 34658 ####[facility],[address] [place] [address] 03303 Creatinine [Mass/Vol] 0.97 mg/dL Normal 0.55 - 1.02 [facility] Comment on above: Performed By: #### 2 35692 ####[facility],[address] [place] [address] 75221 eGFR 57 ML/MINUTE Low 60 - 999 [facility] Comment on above: Performed By: #### 2 23149 ####[facility],[address] [place] [address] 84181 GFR/1.73 sq M.predicted among non-blacks MDRD (S/P/Bld) [Vol rate/Area] mL/min/{1.73_m2} Normal 60 - 999 [facility] Comment on above: Result Comment: ACCO RDING TO THE NATIONAL KIDNEY DISEASE EDUCATION PROGRAM(NKDE), A NORMAL eGFRIS A VALUE GREATER THAN OR EQUAL TO 60 ML/MIN/1.73 SQ METERS.CHRONIC KIDNEY DISEASE: <60mL/MIN/1.73 SQ METERSKIDNEY FAILURE: <15mL/MIN/1.73 SQ METERSTHIS TEST SHOULD ONLY BE USED FOR PATIENTS 18 YEARS OF AGE AND OLDER. Performed By: #### 2 19232 ####[facility],[address] [place] [address] 28648 Glucose [Mass/Vol] 159 mg/dL High 74 - 106 [facility] Comment on above: Performed By: #### 2 19281 ####[facility],[address] [place] [address] 30694 Potassium [Moles/Vol] 3.0 mmol/L Low 3.5 - 5.1 [facility] Comment on above: Performed By: #### 2 64854 ####[facility],[address] [place] [address] 39959 Sodium [Moles/Vol] 137 mmol/L Normal 136 - 145 [facility] Comment on above: Performed By: #### 2 23387 ####[address] [address] Urea nitrogen [Mass/Vol] 21 mg/dL High 7 - 18 [facility] Comment on above: Performed By: #### 2 69251 ####[facility],[address] [place] [address] 35313 CBC + DIFFon 10-04-2024 Baso # 0.03 x10EE3/UL Normal 0.00 - 0.10 [facility] Comment on above: Performed By: #### 2 36368 ####[facility],[address] [place] [address] 96231 Basophils/100 WBC (Bld) 0.3 % Normal 0.0 - 2.0 [facility] Comment on above: Performed By: #### 2 41643 ####[facility],[address] [place] [address] 27206 CBC + DIFF Normal [facility] Comment on above: Result Comment: CBC- COMPLETE BLOOD COUNT Performed By: #### 2 26739 ####[facility],[address] [place] [address] 19691 EO # 0.04 x10EE3/UL Normal 0.00 - 0.50 [facility] Comment on above: Performed By: #### 2 71749 ####[facility],[address] [place] [address] 40210 Eosinophils/100 WBC (Bld) 0.3 % Normal 0.0 - 7.0 [facility] Comment on above: Performed By: #### 2 52717 ####[facility],[address] [place] [address] Erythrocyte distribution width (RBC) [Ratio] 14.2 % Normal 12.0 - 15.6 [facility] Comment on above: Performed By: #### 2 22858 ####[facility],[address] [place] [address] Hematocrit (Bld) [Volume fraction] 36.6 % Normal 34.0 - 46.0 [facility] Comment on above: Performed By: #### 2 20583 ####[facility],[address] [place] [address] Hemoglobin (Bld) [Mass/Vol] 12.1 g/dL Normal 12.0 - 16.0 [facility] Comment on above: Performed By: #### 2 37622 ####[facility],[address] [place] [address] 85745 Lymph # 0.61 x10EE3/UL Low 0.80 - 2.80 [facility] Comment on above: Performed By: #### 2 57702 ####[facility],[address] [place], [place] [address] Lymphocytes/100 WBC (Bld) 4.9 % Low 20.0 - 45.0 [facility] Comment on above: Performed By: #### 2 00314 ####[facility],[address] [place], [place] [id number] MANUAL DIFF N/A Normal [facility] Comment on above: Performed By: #### 2 51727 ####[facility],[address] [place] [address] MCH (RBC) [Entitic mass] 31 pg Normal 27 - 33 [facility] Comment on above: Performed By: #### 2 92032 ####[facility],[address] [place] [address] MCHC 33 X10 3 Normal 32 - 36 [facility] Comment on above: Performed By: #### 2 77503 ####[facility],[address] [place] [address] MCV (RBC) [Entitic vol] 92 fL Normal 80 - 99 [facility] Comment on above: Performed By: #### 2 28381 ####[facility],[address] [place] [address] [place] # 0.19 x10EE3/UL Low 0.20 - 1.00 [facility] Comment on above: Performed By: #### 2 62163 ####[facility],[address] [place] [address] MONOS % 1.5 % Normal 0.0 - 10.0 [facility] Comment on above: Performed By: #### 2 17660 ####[facility],[address] [place] [address] Morphology Dandy (Bld) [Interp] N/A Normal [facility] Comment on above: Performed By: #### 2 46927 ####[facility],[address] [place] [address] Neut # 11.58 x10EE3/UL High 1.50 - 7.10 [facility] Comment on above: Performed By: #### 2 71307 ####[facility],[address] [place] [address] Neutrophils/100 WBC (Bld) 93.0 % High 46.0 - 76.0 [facility] Comment on above: Performed By: #### 2 22058 ####[facility],[address] [place] [address] 56372 PLATELET 379 x10EE3/UL Normal 150 - 450 [facility] Comment on above: Performed By: #### 2 26892 ####[facility],[address] [place] [address] 19138 Platelet mean volume (Bld) [Entitic vol] 7.0 fL Normal 6.6 - 10.5 [facility] Comment on above: Result Comment: AUTO MATED DIFFERENTIAL Performed By: #### 2 45084 ####[facility],[address] [place] [address] 60290 RBC 3.98 x 10EE6/UL Low 4.10 - 5.30 [facility] Comment on above: Performed By: #### 2 16250 ####[facility],[address] [place] [address] 47998 WBC 12.5 x 10EE3/UL High 4.5 - 10.8 [facility] Comment on above: Performed By: #### 2 34948 ####[facility],[address] [place] [address] 28185 ED MED ADMINISTRATION DETAIL on 10-04-2024 ED MED ADMINISTRATION DETAIL Normal [facility] ED NURSES CLINICAL NOTEon ED NURSES CLINICAL NOTE Normal [facility] ED ORDER SHEET (CPOE ONLY)on 10-04-2024 ED ORDER SHEET (CPOE ONLY) Normal [facility] ED PHYSICIAN CLINICAL REPORT on 10-04-2024 ED PHYSICIAN CLINICAL REPORT Normal [facility] ED PHYSICIAN DISCHARGE REPOR Ton 10-04-2024 ED PHYSICIAN DISCHARGE REPORT Normal [facility] ED SUPER BILLon 10-04-2024 ED SUPER BILL Normal [facility] ED VISIT SUMMARYon ED VISIT SUMMARY Normal [facility] ED VITALS FLOW SHEETon 10-04 ED VITALS FLOW SHEET Normal [facility] CBC + DIFFon 10-03-2024 Baso # 0.06 x10EE3/UL Normal 0.00 - 0.10 [facility] Comment on above: Performed By: #### 2 87499 ####[facility],[address] [place] [address] Basophils/100 WBC (Bld) 0.5 % Normal 0.0 - 2.0 [facility] Comment on above: Performed By: #### 2 44514 ####[facility],[address] [place] [address] CBC + DIFF Normal [facility] Comment on above: Result Comment: CBC- COMPLETE BLOOD COUNT Performed By: #### 2 09218 ####[place] [address] EO # 0.29 x10EE3/UL Normal 0.00 - 0.50 [facility] Comment on above: Performed By: #### 2 91087 ####[facility],[address] [place] [address] Eosinophils/100 WBC (Bld) 2.1 % Normal 0.0 - 7.0 [facility] [facility] Comment on above: Performed By: #### 2 92666 ####[place] [address] Erythrocyte distribution width (RBC) [Ratio] 14.1 % Normal 12.0 - 15.6 [facility] Comment on above: Performed By: #### 2 74145 ####[facility],[address] [place] [address] Hematocrit (Bld) [Volume fraction] 41.7 % Normal 34.0 - 46.0 [facility] Comment on above: Performed By: #### 2 79656 ####[facility],[address] [place] [address] Hemoglobin (Bld) [Mass/Vol] 13.8 g/dL Normal 12.0 - 16.0 [facility] Comment on above: Performed By: #### 2 09079 ####[facility],[address] [place] [address] Lymph # 5.71 x10EE3/UL High 0.80 - 2.80 [facility] Comment on above: Performed By: #### 2 25219 ####[facility],[address] [place] [address] Lymphocytes/100 WBC (Bld) 41.9 % Normal 20.0 - 45.0 [facility] Comment on above: Performed By: #### 2 97220 ####[facility],[address] [place] [address] MANUAL DIFF N/A Normal [facility] Comment on above: Performed By: #### 2 22581 ####[facility],[address] [place] [address] MCH (RBC) [Entitic mass] 30 pg Normal 27 - 33 [facility] Comment on above: Performed By: #### 2 50183 ####[facility],[address] [place] [address] MCHC 33 X10 3 Normal 32 - 36 [facility] Comment on above: Performed By: #### 2 34581 ####[facility],[address] [place] [address] MCV (RBC) [Entitic vol] 91 fL Normal 80 - 99 [facility] Comment on above: Performed By: #### 2 36313 ####[facility],[address] [place] [address] [place] # 1.18 x10EE3/UL High 0.20 - 1.00 [facility] Comment on above: Performed By: #### 2 46317 ####[facility],[address] [place] [address] MONOS % 8.6 % Normal 0.0 - 10.0 [facility] Comment on above: Performed By: #### 2 05175 ####[facility],[address] [place] [address] Morphology Dandy (Bld) [Interp] N/A Normal [facility] Comment on above: Performed By: #### 2 30462 ####[facility],[address] [place] [address] Neut # 6.39 x10EE3/UL Normal 1.50 - 7.10 [facility] Comment on above: Performed By: #### 2 98509 ####[facility],[address] [place] [address] Neutrophils/100 WBC (Bld) 46.9 % Normal 46.0 - 76.0 [facility] Comment on above: Performed By: #### 2 52916 ####[facility],[address] [place] [address] PLATELET 475 x10EE3/UL High 150 - 450 [facility] Comment on above: Performed By: #### 2 75077 ####[facility],[address] [place] [address] Platelet mean volume (Bld) [Entitic vol] 7.4 fL Normal 6.6 - 10.5 [facility] Comment on above: Result Comment: AUTO MATED DIFFERENTIAL Performed By: #### 2 92528 ####[facility],[address] [place] [address]1082 RBC 4.58 x 10EE6/UL Normal 4.10 - 5.30 [facility] Comment on above: Performed By: #### 2 65602 ####[facility],[address] [place] [address] 13596 WBC 13.6 x 10EE3/UL High 4.5 - 10.8 [facility] Comment on above: Performed By: #### 2 10776 ####[facility],[address] [place], [place] [id number] CHEST 1 VIEWon 10-03-2024 CHEST 1 VIEW Normal [facility] CMP with eGFRon 10-03-2024 AGE 69 years Normal [facility] Comment on above: Performed By: #### 2 46815 ####[facility],[address] [place] [address]85 Albumin [Mass/Vol] 3.1 g/dL Low 3.4 - 5.0 [facility] Comment on above: Performed By: #### 2 29384 ####[facility],[address] [place] [address]457 Albumin/Globulin [Mass ratio] 0.7 {ratio} Low 0.9 - 1.6 [facility] Comment on above: Performed By: #### 2 71333 ####[facility],[address] [place] [address]852 ALK PHOS 124 U/L High 46 - 116 [facility] Comment on above: Performed By: #### 2 93463 ####[facility],[address] [place] [address] 03689 ALT [Catalytic activity/Vol] 90 U/L High 16 - 63 [facility] Comment on above: Performed By: #### 2 41148 ####[facility],[address] [place] [address]35 Anion gap [Moles/Vol] 13 mmol/L Normal 10 - 20 [facility] Comment on above: Performed By: #### 2 66211 ####[facility],[address] [place] [address]290 AST [Catalytic activity/Vol] 126 U/L High 13 - 39 [facility] Comment on above: Performed By: #### 2 19839 ####[facility],[address] [place] [address]68 B/C RATIO 15 ratio Normal 0 - 30 [facility] Comment on above: Performed By: #### 2 54012 ####[facility],[address] [place] [address] 77666 Bilirubin [Mass/Vol] 0.5 mg/dL Normal 0.2 - 1.0 [facility] Comment on above: Performed By: #### 2 16115 ####[facility],[address] [place] [address]47 Calcium [Mass/Vol] 8.6 mg/dL Normal 8.5 - 10.1 [facility] Comment on above: Performed By: #### 2 20571 ####[facility],[address] [place] [address] 66395 Chloride [Moles/Vol] 97 mmol/L Low 98 - 107 [facility] Comment on above: Performed By: #### 2 52192 ####[facility],[address] [place] [address] 28428 CMP with eGFR Normal [facility] Comment on above: Result Comment: COMP REHENSIVE METABOLIC PANEL Performed By: #### 2 87621 ####[facility],[address] [place] [address] 16066 CO2 [Moles/Vol] 30.3 mmol/L Normal 21.0 - 32.0 [facility] Comment on above: Performed By: #### 2 50881 ####[facility],[address] [place] [address] 57703 Creatinine [Mass/Vol] 1.33 mg/dL High 0.55 - 1.02 [facility] Comment on above: Performed By: #### 2 95513 ####[facility],[address] [place] [address] 03872 eGFR 39 ML/MINUTE Low 60 - 999 [facility] Comment on above: Performed By: #### 2 75214 ####[facility],[address] [place] [address] 10166 eGFR(AA) 48 ML/MINUTE Low 60 - 999 [facility] Comment on above: Result Comment: ACCO RDING TO THE NATIONAL KIDNEY DISEASE EDUCATION PROGRAM(NKDE), A NORMAL eGFRIS A VALUE GREATER THAN OR EQUAL TO 60 ML/MIN/1.73 SQ METERS.CHRONIC KIDNEY DISEASE: <60mL/MIN/1.73 SQ METERSKIDNEY FAILURE: <15mL/MIN/1.73 SQ METERSTHIS TEST SHOULD ONLY BE USED FOR PATIENTS 18 YEARS OF AGE AND OLDER. Performed By: #### 2 77402 ####[facility],[address] [place] [address]237 Globulin (S) [Mass/Vol] 4.7 g/dL High 1.5 - 3.8 [facility] Comment on above: Performed By: #### 2 20430 ####[facility],[address] [place] [address]1441 Glucose [Mass/Vol] 271 mg/dL High 74 - 106 [facility] Comment on above: Performed By: #### 2 70223 ####[facility],[address] [place] [address] 13093 Potassium [Moles/Vol] 3.1 mmol/L Low 3.5 - 5.1 [facility] Comment on above: Performed By: #### 2 87297 ####[facility],[address] [place] [address] 56493 Protein [Mass/Vol] 7.8 g/dL Normal 6.4 - 8.2 [facility] Comment on above: Performed By: #### 2 40187 ####[facility],[address] [place] [address] 02093 Sodium [Moles/Vol] 137 mmol/L Normal 136 - 145 [facility] Comment on above: Performed By: #### 2 28907 ####[facility],[address] [place] [address] 43011 Urea nitrogen [Mass/Vol] 20 mg/dL High 7 - 18 [facility] Comment on above: Performed By: #### 2 79169 ####[facility],[address] [place] [address]99 MYCOon 09-08-2023 Mycoplasma IgG equiv Normal [facility] ([place]) Comment on above: Result Comment: INTE RPRETATION OF MYCOPLASMA IgG BY EIA: Negative: No detectable M. pneumoniae IgG antibody. Positive: Mycoplasma pneumoniae IgG antibody Detected. Equivocal: Equivocal for IgG antibodies to Mycoplasma pneumoniae. Suggest repeat testing in 10-14 days. Performed By: #### P HOS, TROPHS, MG, CBC, ADIFF, ANEU, MYCO, CMP, CAION, GFR ####[address] [address] .Auto Diffon 09-06-2023 Basophil, Absolute 0.1 10 3/mcL Normal 0.0-0.3 [facility] ([place]) Comment on above: Performed By: #### A DIFF, MG, ANEU, GFR, CBC, BMP ####[address] [address] Basophils/100 WBC (Bld) 1.5 % Normal 0.0-2.5 A [facility] ([place]) Comment on above: Performed By: #### A DIFF, MG, ANEU, GFR, CBC, BMP ####[address] [address] Eosinophil, Absolute 0.4 10 3/mcL Normal 0.0-0.7 [facility] ([place]) Comment on above: Performed By: #### A DIFF, MG, ANEU, GFR, CBC, BMP ####[place] [address] Eosinophils/100 WBC (Bld) 5.4 % Normal 0.0-6.0 [facility] ([place]) Comment on above: Performed By: #### A DIFF, MG, ANEU, GFR, CBC, BMP ####[address] [address] Lymphocyte, Absolute 2.0 10 3/mcL Normal 0.9-4.3 [facility] ([place]) Comment on above: Performed By: #### A DIFF, MG, ANEU, GFR, CBC, BMP ####[address] [address] Lymphocytes/100 WBC (Bld) 27.7 % Normal 20.0-40.0 [facility] ([place]) Comment on above: Performed By: #### A DIFF, MG, ANEU, GFR, CBC, BMP ####[address] [address] Monocyte, Absolute 0.9 10 3/mcL Normal 0.1-1.4 [facility] ([place] Comment on above: Performed By: #### A DIFF, MG, ANEU, GFR, CBC, BMP ####[address] [address] Monocytes/100 WBC (Bld) 13.0 % Normal 2.0-13.0 A [facility] ([place]) Comment on above: Performed By: #### A DIFF, MG, ANEU, GFR, CBC, BMP ####[address] [address] Neutrophils/100 WBC (Bld) 52.4 % Normal 50.0-75.0 [facility] ([place]) Comment on above: Performed By: #### A DIFF, MG, ANEU, GFR, CBC, BMP ####[address] [address] .GFRon 09-06-2023 GFR Non- >60 Normal [facility] ([place]) Comment on above: Result Comment: GFR Population [...] A DIFF, MG, ANEU, GFR, CBC, BMP ####[address] [address] GFR >60 Normal [facility] ([place]) Comment on above: Result Comment: GFR Population [...] A DIFF, MG, ANEU, GFR, CBC, BMP ####[address] [address] .NEUABSon 09-06-2023 Neutrophil, Absolute 3.7 10 3/mcL Normal 2.3-8.1 [facility] ([place] Comment on above: Performed By: #### A DIFF, MG, ANEU, GFR, CBC, BMP ####[place] [address] BMPon 09-06-2023 BUN/Creatinine Ratio 22.5 ratio High 10.0-22.0 [facility] ([place]) Comment on above: Performed By: #### A DIFF, MG, ANEU, GFR, CBC, BMP ####[place] [address] Calcium [Mass/Vol] 8.7 mg/dL Normal 8.7-10.4 [facility] ([place]) Comment on above: Performed By: #### A DIFF, MG, ANEU, GFR, CBC, BMP ####[address] [address] Chloride [Moles/Vol] 101 mmol/L Normal 98-110 [facility] ([place]) Comment on above: Performed By: #### A DIFF, MG, ANEU, GFR, CBC, BMP ####[address] [address] CO2 [Moles/Vol] 33 mmol/L High 22-32 [facility] ([place]) Comment on above: Performed By: #### A DIFF, MG, ANEU, GFR, CBC, BMP ####[address] [address] Creatinine [Mass/Vol] 0.89 mg/dL Normal 0.50-1.20 [facility] ([place]) Comment on above: Performed By: #### A DIFF, MG, ANEU, GFR, CBC, BMP ####[place] [address] Electrolyte Balance 3.0 mEq/L Low 4.0-15.0 [facility] ([place]) Comment on above: Performed By: #### A DIFF, MG, ANEU, GFR, CBC, BMP ####[place] [address] Glucose [Mass/Vol] 100 mg/dL Normal 82-115 [facility] ([place]) Comment on above: Performed By: #### A DIFF, MG, ANEU, GFR, CBC, BMP ####[place] [address] Potassium [Moles/Vol] 3.9 mmol/L Normal 3.5-5.0 [facility] ([place]) Comment on above: Performed By: #### A DIFF, MG, ANEU, GFR, CBC, BMP ####[place] [address] Sodium [Moles/Vol] 137 mmol/L Normal 136-145 [facility] ([place]) Comment on above: Performed By: #### A DIFF, MG, ANEU, GFR, CBC, BMP ####[place] [address] Urea nitrogen [Mass/Vol] 20.0 mg/dL Normal 8.0-22.0 [facility] ([place]) Comment on above: Performed By: #### A DIFF, MG, ANEU, GFR, CBC, BMP ####[place] [address] CBCon 09-06-2023 Erythrocyte distribution width (RBC) [Ratio] 13.7 % Normal 11.5-15.5 [facility] ([place]) Comment on above: Performed By: #### A DIFF, MG, ANEU, GFR, CBC, BMP ####[place] [address] Hematocrit (Bld) [Volume fraction] 39.7 % Normal 34.0-46.0 [facility] ([place]) Comment on above: Performed By: #### A DIFF, MG, ANEU, GFR, CBC, BMP ####[place] [address] Hgb 13.5 G/dL Normal 12.0-16.0 [facility] ([place]) Comment on above: Performed By: #### A DIFF, MG, ANEU, GFR, CBC, BMP ####[place] [address] MCH (RBC) [Entitic mass] 30.9 pg Normal 27.0-33.0 [facility] ([place]) Comment on above: Performed By: #### A DIFF, MG, ANEU, GFR, CBC, BMP ####[place] [address] MCHC 34.0 G/dL Normal 32.0-36.0 [facility] ([place]) Comment on above: Performed By: #### A DIFF, MG, ANEU, GFR, CBC, BMP ####[place] [address] MCV (RBC) [Entitic vol] 90.9 fL Normal 80.0-99.0 A [facility] ([place]) Comment on above: Performed By: #### A DIFF, MG, ANEU, GFR, CBC, BMP ####[place] [address] Platelet 299 10 3/mcL Normal 150-450 [facility] ([place]) Comment on above: Performed By: #### A DIFF, MG, ANEU, GFR, CBC, BMP ####[place] [address] Platelet mean volume (Bld) [Entitic vol] 7.8 fL Normal 6.6-10.5 [facility] ([place]) Comment on above: Performed By: #### A DIFF, MG, ANEU, GFR, CBC, BMP ####[place] [address] RBC 4.37 10 6/mcL Normal 4.10-5.30 [facility] ([place]) Comment on above: Performed By: #### A DIFF, MG, ANEU, GFR, CBC, BMP ####[facility] [place] [address] WBC 7.1 10 3/mcL Normal 4.5-10.8 [facility] ([place]) Comment on above: Performed By: #### A DIFF, MG, ANEU, GFR, CBC, BMP ####[place] [address] [address] [place] [address] LABORATORYOrdered By: SYSTEM SYSTEM on 09-06-2023 Basophils [...] 09-06-2023 Magnesium [Mass/Vol] 2.0 mg/dL Normal 1.6-2.4 [facility] ([place]) Comment on above: Performed By: #### A DIFF, MG, ANEU, GFR, CBC, BMP ####[facility] [place] [address] .Auto Diffon 09-05-2023 Basophil, Absolute 0.2 10 3/mcL Normal 0.0-0.3 [facility] ([place]) Comment on above: Performed By: #### B G #### [facility] [address] [place] [address] Basophils/100 WBC (Bld) 2.9 % High 0.0-2.5 A [facility] ([place]) Comment on above: Performed By: #### B G #### [address] [address] Eosinophil, Absolute 0.2 10 3/mcL Normal 0.0-0.7 [facility] ([place]) Comment on above: Performed By: #### B G #### [address] [address] Eosinophils/100 WBC (Bld) 2.1 % Normal 0.0-6.0 [facility] ([place]) Comment on above: Performed By: #### B G #### [address] [address] Lymphocyte, Absolute 1.8 10 3/mcL Normal 0.9-4.3 [facility] ([place]) Comment on above: Performed By: #### B G #### [address] [address] Lymphocytes/100 WBC (Bld) 25.1 % Normal 20.0-40.0 [facility] ([place]) Comment on above: Performed By: #### B G #### [address] [address] Monocyte, Absolute 1.0 10 3/mcL Normal 0.1-1.4 [facility] ([place]) Comment on above: Performed By: #### B G #### [address] [address] Monocytes/100 WBC (Bld) 13.7 % High 2.0-13.0 A [facility] ([place]) Comment on above: Performed By: #### B G #### [address] [address] Neutrophils/100 WBC (Bld) 56.2 % Normal 50.0-75.0 [facility] ([place]) Comment on above: Performed By: #### B G #### [address] [address] .GFRon 09-05-2023 GFR >60 Normal [facility] ([place]) Comment on above: Result Comment: [...] B MP, GFR, ANEU, CBC, MG, ADIFF ####[place] [address] [address] [place] [address] GFR Non- >60 Normal [facility] ([place]) Comment on above: Result Comment: GFR Population [...] B MP, GFR, ANEU, CBC, MG, ADIFF ####[address] [address] .NEUABSon 09-05-2023 Neutrophil, Absolute 3.9 10 3/mcL Normal 2.3-8.1 [facility] ([place] Comment on above: Performed By: #### B G #### [address] [address] BMPon 09-05-2023 BUN/Creatinine Ratio 20.2 ratio Normal 10.0-22.0 [facility] ([place]) Comment on above: Performed By: #### B G #### [address] [address] Calcium [Mass/Vol] 8.7 mg/dL Normal 8.7-10.4 [facility] ([place]) Comment on above: Performed By: #### B G #### [address] [address] Chloride [Moles/Vol] 101 mmol/L Normal 98-110 [facility] ([place]) Comment on above: Performed By: #### B G #### [address] [address] CO2 [Moles/Vol] 29 mmol/L Normal 22-32 [facility] ([place]) Comment on above: Performed By: #### B G #### [address] [address] Creatinine [Mass/Vol] 0.89 mg/dL Normal 0.50-1.20 [facility] ([place]) Comment on above: Performed By: #### B G #### [address] [address] Electrolyte Balance 6.0 mEq/L Normal 4.0-15.0 [facility] ([place]) Comment on above: Performed By: #### B G #### [address] [address] Glucose [Mass/Vol] 87 mg/dL Normal 82-115 [facility] ([place]) Comment on above: Performed By: #### B G #### [address] [address] Potassium [Moles/Vol] 3.6 mmol/L Normal 3.5-5.0 [facility] ([place]) Comment on above: Performed By: #### B G #### [address] [address] Sodium [Moles/Vol] 136 mmol/L Normal 136-145 [facility] ([place]) Comment on above: Performed By: #### B G #### [address] [address] Urea nitrogen [Mass/Vol] 18.0 mg/dL Normal 8.0-22.0 [facility] ([place]) Comment on above: Performed By: #### B G #### [address] [address] CBCon 09-05-2023 Erythrocyte distribution width (RBC) [Ratio] 13.9 % Normal 11.5-15.5 [facility] ([place]) Comment on above: Performed By: #### B G #### [place] [id number] Hematocrit (Bld) [Volume fraction] 36.4 % Normal 34.0-46.0 [facility] ([place]) Comment on above: Performed By: #### B G #### [place] [id number] Hgb 12.3 G/dL Normal 12.0-16.0 [facility] ([place]) Comment on above: Performed By: #### B G #### [place] [id number] MCH (RBC) [Entitic mass] 30.7 pg Normal 27.0-33.0 [facility] ([place]) Comment on above: Performed By: #### B G #### [place] [address] MCHC 33.7 G/dL Normal 32.0-36.0 [facility] ([place]) Comment on above: Performed By: #### B G #### [place] [id number] MCV (RBC) [Entitic vol] 91.1 fL Normal 80.0-99.0 A [facility] ([place]) Comment on above: Performed By: #### B G #### [place] [id number] Platelet 278 10 3/mcL Normal 150-450 [facility] ([place]) Comment on above: Performed By: #### B G #### [place] [id number] Platelet mean volume (Bld) [Entitic vol] 7.5 fL Normal 6.6-10.5 [facility] ([place]) Comment on above: Performed By: #### B G #### [place] [id number] RBC 4.00 10 6/mcL Low 4.10-5.30 [facility] ([place]) Comment on above: Performed By: #### B G #### [facility] [address] [place] [address] WBC 7.0 10 3/mcL Normal 4.5-10.8 [facility] ([place]) Comment on above: Performed By: #### B G #### [facility] [address] [place] [address] LABORATORYOrdered By: Horace Valdez on 09-05-2023 Blood Glucose Testing Reason Routine (09/05/23 7:27 AM) [facility] Glucose [Mass/Vol] 119 mg/dL High 82 - 115 mg/dL [facility] LABORATORYOrdered By: SYSTEM SYSTEM on 09-05-2023 [...] 09-05-2023 Magnesium [Mass/Vol] 2.2 mg/dL Normal 1.6-2.4 [facility] ([place]) Comment on above: Performed By: #### B MP, GFR, ANEU, CBC, MG, ADIFF ####[place] [address] .Auto Diffon 09-04-2023 Basophil, Absolute 0.1 10 3/mcL Normal 0.0-0.3 [facility] ([place]) Comment on above: Performed By: #### C MP, GFR, CBC, ANEU, ADIFF ####[address] [address] Basophils/100 WBC (Bld) 1.3 % Normal 0.0-2.5 A [facility] ([place]) Comment on above: Performed By: #### C MP, GFR, CBC, ANEU, ADIFF ####[address] [address] Eosinophil, Absolute 0.1 10 3/mcL Normal 0.0-0.7 [facility] ([place]) Comment on above: Performed By: #### C MP, GFR, CBC, ANEU, ADIFF ####[address] [address] Eosinophils/100 WBC (Bld) 1.0 % Normal 0.0-6.0 [facility] ([place]) Comment on above: Performed By: #### C MP, GFR, CBC, ANEU, ADIFF ####[address] [address] Lymphocyte, Absolute 1.9 10 3/mcL Normal 0.9-4.3 [facility] ([place]) Comment on above: Performed By: #### C MP, GFR, CBC, ANEU, ADIFF ####[address] [address] Lymphocytes/100 WBC (Bld) 23.0 % Normal 20.0-40.0 [facility] ([place]) Comment on above: Performed By: #### C MP, GFR, CBC, ANEU, ADIFF ####[address] [address] Monocyte, Absolute 1.0 10 3/mcL Normal 0.1-1.4 [facility] ([place] Comment on above: Performed By: #### C MP, GFR, CBC, ANEU, ADIFF ####[address] [address] Monocytes/100 WBC (Bld) 11.5 % Normal 2.0-13.0 A [facility] ([place]) Comment on above: Performed By: #### C MP, GFR, CBC, ANEU, ADIFF ####[address] [address] Neutrophils/100 WBC (Bld) 63.2 % Normal 50.0-75.0 [facility] ([place]) Comment on above: Performed By: #### C MP, GFR, CBC, ANEU, ADIFF ####[address] [address] .GFRon 09-04-2023 GFR >60 Normal [facility] ([place]) Comment on above: Result Comment: GFR Population [...] #### C MP, GFR, CBC, ANEU, ADIFF ####[address] [address] GFR Non- >60 Normal [facility] ([place]) Comment on above: Result Comment: GFR Population [...] #### C MP, GFR, CBC, ANEU, ADIFF ####[address] [address] .NEUABSon 09-04-2023 Neutrophil, Absolute 5.3 10 3/mcL Normal 2.3-8.1 [facility]) Comment on above: Performed By: #### C MP, GFR, CBC, ANEU, ADIFF ####[address] [address] APTTon 09-04-2023 aPTT Coag (Bld) [Time] 27.4 s Normal 25.0-35.0 [facility] ([place]) Comment on above: Result Comment: For Heparin anticoagulation therapy, the recommended therapeutic range is: 54-77 seconds (APTT Correlation with Anti-Xa therapeutic range of 0.3-0.7 units/ml). PLEASE REFERENCE THE PHARMACY PROTOCOL FOR DOSING. Heparin dose (APTT) Unknown Normal [facility] ([place]) aPTT Coag (Bld) [Time] 46.1 s High 25.0-35.0 [facility] ([place]) Comment on above: Result Comment: For Heparin anticoagulation therapy, the recommended therapeutic range is: 54-77 seconds (APTT Correlation with Anti-Xa therapeutic range of 0.3-0.7 units/ml). PLEASE REFERENCE THE PHARMACY PROTOCOL FOR DOSING. Heparin dose (APTT) Heparin IV Normal [facility] ([place]) aPTT Coag (Bld) [Time] 41.1 s High 25.0-35.0 [facility] ([place]) Comment on above: Result Comment: For Heparin anticoagulation therapy, the recommended therapeutic range is: 54-77 seconds (APTT Correlation with Anti-Xa therapeutic range of 0.3-0.7 units/ml). PLEASE REFERENCE THE PHARMACY PROTOCOL FOR DOSING. Heparin dose (APTT) Heparin IV Normal [facility] ([place]) CBCon 09-04-2023 Erythrocyte distribution width (RBC) [Ratio] 14.0 % Normal 11.5-15.5 [facility] ([place]) Comment on above: Performed By: #### C MP, GFR, CBC, ANEU, ADIFF ####[address] [address] Hematocrit (Bld) [Volume fraction] 37.8 % Normal 34.0-46.0 [facility] ([place]) Comment on above: Performed By: #### C MP, GFR, CBC, ANEU, ADIFF ####[place] [address] Hgb 12.8 G/dL Normal 12.0-16.0 [facility] ([place]) Comment on above: Performed By: #### C MP, GFR, CBC, ANEU, ADIFF ####[place] [address] MCH (RBC) [Entitic mass] 30.7 pg Normal 27.0-33.0 [facility] ([place]) Comment on above: Performed By: #### C MP, GFR, CBC, ANEU, ADIFF ####[place] [address] MCHC 33.9 G/dL Normal 32.0-36.0 [facility] ([place]) Comment on above: Performed By: #### C MP, GFR, CBC, ANEU, ADIFF ####[place] [address] MCV (RBC) [Entitic vol] 90.6 fL Normal 80.0-99.0 A [facility] ([place]) Comment on above: Performed By: #### C MP, GFR, CBC, ANEU, ADIFF ####[place] [address] Platelet 281 10 3/mcL Normal 150-450 [facility] ([place]) Comment on above: Performed By: #### C MP, GFR, CBC, ANEU, ADIFF ####[place] [address] Platelet mean volume (Bld) [Entitic vol] 7.6 fL Normal 6.6-10.5 [facility] ([place]) Comment on above: Performed By: #### C MP, GFR, CBC, ANEU, ADIFF ####[place] [address] RBC 4.17 10 6/mcL Normal 4.10-5.30 [facility] ([place]) Comment on above: Performed By: #### C MP, GFR, CBC, ANEU, ADIFF ####[address] [address] WBC 8.5 10 3/mcL Normal 4.5-10.8 [facility] ([place]) Comment on above: Performed By: #### C MP, GFR, CBC, ANEU, ADIFF ####[address] [address] CMPon 09-04-2023 Albumin Level 3.3 G/dL Normal 3.2-4.8 [facility] ([place]) Comment on above: Performed By: #### C MP, GFR, CBC, ANEU, ADIFF ####[place] [address] Albumin/Globulin [Mass ratio] 1.0 {ratio} Normal 0.9-1.6 [facility] ([place]) Comment on above: Performed By: #### C MP, GFR, CBC, ANEU, ADIFF ####[place] [address] ALP [Catalytic activity/Vol] 95 U/L Normal 38-126 [facility] ([place]) Comment on above: Performed By: #### C MP, GFR, CBC, ANEU, ADIFF ####[place] [address] ALT [Catalytic activity/Vol] 103 U/L High 10-49 [facility] ([place]) Comment on above: Performed By: #### C MP, GFR, CBC, ANEU, ADIFF ####[place] [address] AST [Catalytic activity/Vol] 64 U/L High 8-34 [facility] ([place]) Comment on above: Performed By: #### C MP, GFR, CBC, ANEU, ADIFF ####[place] [address] Bili Total 1.00 mg/dL Normal 0.20-1.20 [facility] ([place]) Comment on above: Result Comment: Use of this assay is not recommended for patients undergoing treatment with eltrombopag due to the potential for falsely elevated results. Performed By: #### C MP, GFR, CBC, ANEU, ADIFF ####[place] [address] BUN/Creatinine Ratio 23.1 ratio High 10.0-22.0 [facility] ([place]) Comment on above: Performed By: #### C MP, GFR, CBC, ANEU, ADIFF ####[address] [address] Calcium [Mass/Vol] 9.0 mg/dL Normal 8.7-10.4 [facility] ([place]) Comment on above: Performed By: #### C MP, GFR, CBC, ANEU, ADIFF ####[place] [address] Chloride [Moles/Vol] 100 mmol/L Normal 98-110 [facility] ([place]) Comment on above: Performed By: #### C MP, GFR, CBC, ANEU, ADIFF ####[place] [id number] CO2 [Moles/Vol] 30 mmol/L Normal 22-32 [facility] ([place]) Comment on above: Performed By: #### C MP, GFR, CBC, ANEU, ADIFF ####[place] [address] Creatinine [Mass/Vol] 0.78 mg/dL Normal 0.50-1.20 [facility] ([place]) Comment on above: Performed By: #### C MP, GFR, CBC, ANEU, ADIFF ####[place] [address] Electrolyte Balance 3.0 mEq/L Low 4.0-15.0 [facility] ([place]) Comment on above: Performed By: #### C MP, GFR, CBC, ANEU, ADIFF ####[place] [id number] Globulin 3.4 G/dL Normal 1.5-3.8 [facility] ([place]) Comment on above: Performed By: #### C MP, GFR, CBC, ANEU, ADIFF ####[place] [address] Glucose [Mass/Vol] 134 mg/dL High 82-115 [facility] ([place]) Comment on above: Performed By: #### C MP, GFR, CBC, ANEU, ADIFF ####[place] [id number] [address] [place] [address] Potassium [Moles/Vol] 3.1 mmol/L Low 3.5-5.0 [facility] ([place]) Comment on above: Performed By: #### C MP, GFR, CBC, ANEU, ADIFF ####[address] [address] Sodium [Moles/Vol] 133 mmol/L Low 136-145 [facility] ([place]) Comment on above: Performed By: #### C MP, GFR, CBC, ANEU, ADIFF ####[address] [address] Total Protein 6.7 G/dL Normal 5.7-8.2 [facility] ([place]) Comment on above: Result Comment: No te - New Reference Range in effect 20 Performed By: #### C MP, GFR, CBC, ANEU, ADIFF ####[address] [address] Urea nitrogen [Mass/Vol] 18.0 mg/dL Normal 8.0-22.0 [facility] ([place]) Comment on above: Performed By: #### C MP, GFR, CBC, ANEU, ADIFF ####[address] [address] LABORATORYOrdered By: Pee Cerna on 09-04-2023 Blood Glucose Testing Reason Routine (09/04/23 9:00 PM) [facility] Glucose [Mass/Vol] 98 mg/dL Normal 82 - 115 mg/dL [facility] LABORATORYOrdered By: Carolynn Weston on 09-04-2023 [...] Glucose Testing Reason Routine (09/04/23 4:19 PM) [facility] Glucose [Mass/Vol] 97 mg/dL Normal 82 - 115 mg/dL [facility] LABORATORYOrdered By: SYSTEM SYSTEM on 09-04-2023 [...] (S/P/Bld) [Vol rate/Area] ml/min/1.73sqm Invalid Interpretation Code [facility] Comment on above: Interpretive Data: [...] (S/P/Bld) [Vol rate/Area] ml/min/1.73sqm Invalid Interpretation Code [facility] Comment on above: Interpretive Data: [...] 3.4 G/dL Normal 1.5 - 3.8 G/dL [facility] Glucose [Mass/Vol] 134 mg/dL High 82 - [...] IV (09/04/23 1:16 AM) [facility] Mycoplasma IgM Negative Normal [facility] ([place]) Comment on above: Result Comment: INTE RPRETATION [...] CBC, ADIFF, ANEU, MYCO, CMP, CAION, GFR ####[address] [address] XR CHEST 1 VIEWon 09-04-2023 XR CHEST [...] 09/04/2023 6:42:09 AM Ordering Provider: FEDERICA Soto [facility] ([place]) .Auto Diffon 09-03-2023 Basophil, Absolute 0.1 10 3/mcL Normal 0.0-0.3 [facility] ([place]) Comment on above: Performed By: #### T ROPHS, MG, LAC, GFR, CBC, CMP, ADIFF, ANEU ####[address] [address] Basophils/100 WBC (Bld) 0.6 % Normal 0.0-2.5 A [facility] ([place]) Comment on above: Performed By: #### T ROPHS, MG, LAC, GFR, CBC, CMP, ADIFF, ANEU ####[address] Eosinophil, Absolute 0.0 10 3/mcL Normal 0.0-0.7 [facility] ([place]) Comment on above: Performed By: #### T ROPHS, MG, LAC, GFR, CBC, CMP, ADIFF, ANEU ####[address] [address] Eosinophils/100 WBC (Bld) 0.2 % Normal 0.0-6.0 [facility] ([place]) Comment on above: Performed By: #### T ROPHS, MG, LAC, GFR, CBC, CMP, ADIFF, ANEU ####[address] [address] Lymphocyte, Absolute 2.0 10 3/mcL Normal 0.9-4.3 [facility] ([place]) Comment on above: Performed By: #### T ROPHS, MG, LAC, GFR, CBC, CMP, ADIFF, ANEU ####[address] [address] Lymphocytes/100 WBC (Bld) 20.9 % Normal 20.0-40.0 [facility] ([place]) Comment on above: Performed By: #### T ROPHS, MG, LAC, GFR, CBC, CMP, ADIFF, ANEU ####[address] [address] Monocyte, Absolute 1.1 10 3/mcL Normal 0.1-1.4 [facility] ([place] Comment on above: Performed By: #### T ROPHS, MG, LAC, GFR, CBC, CMP, ADIFF, ANEU ####[address] [address] Monocytes/100 WBC (Bld) 10.8 % Normal 2.0-13.0 [facility] ([place]) Comment on above: Performed By: #### T ROPHS, MG, LAC, GFR, CBC, CMP, ADIFF, ANEU ####[address] [address] Neutrophils/100 WBC (Bld) 67.5 % Normal 50.0-75.0 [facility] ([place]) Comment on above: Performed By: #### T ROPHS, MG, LAC, GFR, CBC, CMP, ADIFF, ANEU ####[address] [address] .GFRon 09-03-2023 GFR >60 Normal [facility] ([place]) Comment on above: Result Comment: GFR Population [...] meters Performed By: #### B G #### [address] [address] GFR Non- 56 ml/min/1.73sqm Normal [facility] ([place]) Comment on above: Result Comment: GFR Population [...] meters Performed By: #### B G #### [address] [address] .NEUABSon 09-03-2023 Neutrophil, Absolute 6.6 10 3/mcL Normal 2.3-8.1 [facility] ([place]) Comment on above: Performed By: #### T ROPHS, MG, LAC, GFR, CBC, CMP, ADIFF, ANEU ####[address] [address] APTTon 09-03-2023 aPTT Coag (Bld) [Time] 44.3 s High 25.0-35.0 [facility] ([place]) Comment on above: Result Comment: For Heparin anticoagulation therapy, the recommended therapeutic range is: 54-77 seconds (APTT Correlation with Anti-Xa therapeutic range of 0.3-0.7 units/ml). PLEASE REFERENCE THE PHARMACY PROTOCOL FOR DOSING. Heparin dose (APTT) Heparin IV Normal [facility] ([place]) aPTT Coag (Bld) [Time] 45.1 s High 25.0-35.0 [facility] ([place]) Comment on above: Result Comment: For Heparin anticoagulation therapy, the recommended therapeutic range is: 54-77 seconds (APTT Correlation with Anti-Xa therapeutic range of 0.3-0.7 units/ml). PLEASE REFERENCE THE PHARMACY PROTOCOL FOR DOSING. Heparin dose (APTT) Heparin IV Normal [facility] ([place]) BGon 09-03-2023 Barometric Pressure 715 mmHg Normal [facility] ([place]) Comment on above: Performed By: #### L AC #### [address] [address] Base excess Calc (Bld) [Moles/Vol] 7.6 mmol/L Normal [facility] ([place]) Comment on above: Performed By: #### L AC #### [address] [address] CO2 [Moles/Vol] 30.7 mmol/L High 22.0-30.0 [facility] ([place]) Comment on above: Performed By: #### L AC #### [address] [address] HCO3 (Bld) [Moles/Vol] 29.7 mmol/L High 21.0-29.0 A [facility] ([place]) Comment on above: Performed By: #### L AC #### [address] [address] Oxygen (Bld) [Partial pressure] 65.0 mm[Hg] Low 74.0-108.0 [facility] ([place]) Comment on above: Performed By: #### L AC #### [address] [address] Oxygen saturation in Blood 94.0 % Normal 92.0-96.0 [facility] ([place]) Comment on above: Performed By: #### L AC #### [address] [address] pCO2 33.3 mmHg Normal 32.0-46.0 [facility] ([place] Comment on above: Performed By: #### L AC #### [address] [address] pH (Bld) 7.568 [pH] High 7.380-7.460 [facility] ([place]) Comment on above: Performed By: #### L AC #### [address] [address] Barometric Pressure 720 mmHg Normal [facility] ([place]) Comment on above: Performed By: #### B G ####[address] [address] Base excess Calc (Bld) [Moles/Vol] 7.2 mmol/L Normal [facility] ([place]) Comment on above: Performed By: #### B G ####[address] [address] CO2 [Moles/Vol] 32.5 mmol/L High 22.0-30.0 [facility] ([place]) Comment on above: Performed By: #### B G ####[address] [address] HCO3 (Bld) [Moles/Vol] 31.2 mmol/L High 21.0-29.0 A [facility] ([place]) Comment on above: Performed By: #### B G ####[place] [id number] Oxygen (Bld) [Partial pressure] 86.0 mm[Hg] Normal 74.0-108.0 [facility] ([place]) Comment on above: Performed By: #### B G ####[address] [address] Oxygen saturation in Blood 96.7 % High 92.0-96.0 [facility] ([place]) Comment on above: Performed By: #### B G ####[address] [address] pCO2 41.9 mmHg Normal 32.0-46.0 [facility] ([place]) Comment on above: Performed By: #### B G ####[place] [id number] [address] [place] [address] pH (Bld) 7.490 [pH] High 7.380-7.460 [facility] ([place]) Comment on above: Performed By: #### B G ####[place] [id number] CBCon 09-03-2023 Erythrocyte distribution width (RBC) [Ratio] 14.6 % Normal 11.5-15.5 [facility] ([place]) Comment on above: Performed By: #### T ROPHS, MG, LAC, GFR, CBC, CMP, ADIFF, ANEU ####[place] [address] Hematocrit (Bld) [Volume fraction] 36.6 % Normal 34.0-46.0 [facility] ([place]) Comment on above: Performed By: #### T ROPHS, MG, LAC, GFR, CBC, CMP, ADIFF, ANEU ####[place] [address] Hgb 12.3 G/dL Normal 12.0-16.0 [facility] ([place]) Comment on above: Performed By: #### T ROPHS, MG, LAC, GFR, CBC, CMP, ADIFF, ANEU ####[place] [address] MCH (RBC) [Entitic mass] 30.3 pg Normal 27.0-33.0 [facility] ([place]) Comment on above: Performed By: #### T ROPHS, MG, LAC, GFR, CBC, CMP, ADIFF, ANEU ####[place] [address] MCHC 33.5 G/dL Normal 32.0-36.0 [facility] ([place]) Comment on above: Performed By: #### T ROPHS, MG, LAC, GFR, CBC, CMP, ADIFF, ANEU ####[place] [address] MCV (RBC) [Entitic vol] 90.2 fL Normal 80.0-99.0 A [facility] ([place]) Comment on above: Performed By: #### T ROPHS, MG, LAC, GFR, CBC, CMP, ADIFF, ANEU ####[place] [address] Platelet 274 10 3/mcL Normal 150-450 [facility] ([place]) Comment on above: Performed By: #### T ROPHS, MG, LAC, GFR, CBC, CMP, ADIFF, ANEU ####[address] [address] Platelet mean volume (Bld) [Entitic vol] 7.7 fL Normal 6.6-10.5 [facility] ([place]) Comment on above: Performed By: #### T ROPHS, MG, LAC, GFR, CBC, CMP, ADIFF, ANEU ####[place] [address] RBC 4.05 10 6/mcL Low 4.10-5.30 [facility] ([place]) Comment on above: Performed By: #### T ROPHS, MG, LAC, GFR, CBC, CMP, ADIFF, ANEU ####[place] [address] WBC 9.8 10 3/mcL Normal 4.5-10.8 [facility] ([place]) Comment on above: Performed By: #### T ROPHS, MG, LAC, GFR, CBC, CMP, ADIFF, ANEU ####[place] [address] CMPon 09-03-2023 Albumin Level 2.8 G/dL Low 3.2-4.8 [facility] ([place]) Comment on above: Performed By: #### B G #### [place] [address] Albumin/Globulin [Mass ratio] 1.0 {ratio} Normal 0.9-1.6 [facility] ([place]) Comment on above: Performed By: #### B G #### [place] [address] ALP [Catalytic activity/Vol] 98 U/L Normal 38-126 [facility] ([place]) Comment on above: Performed By: #### B G #### [place] [id number] ALT [Catalytic activity/Vol] 138 U/L High 10-49 [facility] ([place]) Comment on above: Performed By: #### B G #### [place] [address] AST [Catalytic activity/Vol] 92 U/L High 8-34 [facility] ([place]) Comment on above: Performed By: #### B G #### [address] [address] Bili Total 0.60 mg/dL Normal 0.20-1.20 [facility] ([place]) Comment on above: Result Comment: Use of this assay is not recommended for patients undergoing treatment with eltrombopag due to the potential for falsely elevated results. Performed By: #### B G #### [place] [id number] BUN/Creatinine Ratio 27.6 ratio High 10.0-22.0 [facility] ([place]) Comment on above: Performed By: #### B G #### [place] [id number] Calcium [Mass/Vol] 8.5 mg/dL Low 8.7-10.4 [facility] ([place]) Comment on above: Performed By: #### B G #### [place] [id number] Chloride [Moles/Vol] 105 mmol/L Normal 98-110 [facility] ([place]) Comment on above: Performed By: #### B G #### [place] [id number] CO2 [Moles/Vol] 31 mmol/L Normal 22-32 [facility] ([place]) Comment on above: Performed By: #### B G #### [place] [id number] Creatinine [Mass/Vol] 0.98 mg/dL Normal 0.50-1.20 [facility] ([place]) Comment on above: Performed By: #### B G #### [address] [address] Electrolyte Balance 4.0 mEq/L Normal 4.0-15.0 [facility] ([place]) Comment on above: Performed By: #### B G #### [place] [id number] Globulin 2.9 G/dL Normal 1.5-3.8 [facility] ([place]) Comment on above: Performed By: #### B G #### [place] [address] [place] [address] Glucose [Mass/Vol] 110 mg/dL Normal 82-115 [facility] ([place]) Comment on above: Performed By: #### B G #### [address] [address] Potassium [Moles/Vol] 3.8 mmol/L Normal 3.5-5.0 [facility] ([place]) Comment on above: Performed By: #### B G #### [address] [address] Sodium [Moles/Vol] 140 mmol/L Normal 136-145 [facility] ([place]) Comment on above: Performed By: #### B G #### [address] [address] Total Protein 5.7 G/dL Normal 5.7-8.2 [facility] ([place]) Comment on above: Result Comment: No te - New Reference Range in effect 20 Performed By: #### B G #### [address] [address] Urea nitrogen [Mass/Vol] 27.0 mg/dL High 8.0-22.0 [facility] ([place]) Comment on above: Performed By: #### B G #### [address] [address] LABORATORYOrdered By: Ariadna Estes on 09-03-2023 Barometric [...] Lactic Acid Lvl 1.6 mmol/L Normal 0.2-2.0 [facility] ([place]) Comment on above: Performed By: #### B G #### [address] [address] MGon 09-03-2023 Magnesium [Mass/Vol] 2.3 mg/dL Normal 1.6-2.4 [facility] ([place]) Comment on above: Performed By: #### B G #### [address] [address] TROPHSon 09-03-2023 Troponin I High Sensitivity 1793.02 ng/L High 0.00-34.00 [facility] ([place]) Comment on above: Performed By: #### B G #### [address] [address] Troponin I High Sensitivity 2219.13 ng/L High 0.00-34.00 [facility] ([place]) Comment on above: Performed By: #### B G #### [address] [address] .Auto Diffon 09-02-2023 Basophil, Absolute 0.0 10 3/mcL Normal 0.0-0.3 [facility] ([place]) Comment on above: Performed By: #### L AC #### [address] [address] Basophils/100 WBC (Bld) 0.6 % Normal 0.0-2.5 A [facility] ([place]) Comment on above: Performed By: #### L AC #### [address] [address] Eosinophil, Absolute 0.0 10 3/mcL Normal 0.0-0.7 [facility] ([place]) Comment on above: Performed By: #### L AC #### [address] [address] Eosinophils/100 WBC (Bld) 0.0 % Normal 0.0-6.0 [facility] ([place]) Comment on above: Performed By: #### L AC #### [address] [address] Lymphocyte, Absolute 0.6 10 3/mcL Low 0.9-4.3 [facility] ([place]) Comment on above: Performed By: #### L AC #### [address] [address] Lymphocytes/100 WBC (Bld) 8.0 % Low 20.0-40.0 [facility] ([place] Comment on above: Performed By: #### L AC #### [address] [address] Monocyte, Absolute 0.2 10 3/mcL Normal 0.1-1.4 [facility] ([place] Comment on above: Performed By: #### L AC #### [address] [address] Monocytes/100 WBC (Bld) 2.7 % Normal 2.0-13.0 A [facility] ([place]) Comment on above: Performed By: #### L AC #### [address] [address] Neutrophils/100 WBC (Bld) 88.7 % High 50.0-75.0 [facility] ([place]) Comment on above: Performed By: #### L AC #### [address] [address] Basophil, Absolute 0.0 10 3/mcL Normal 0.0-0.3 [facility] ([place]) Comment on above: Performed By: #### P HOS, TROPHS, MG, CBC, ADIFF, ANEU, MYCO, CMP, CAION, GFR ####[address] [address] Basophils/100 WBC (Bld) 0.4 % Normal 0.0-2.5 A [facility] ([place]) Comment on above: Performed By: #### P HOS, TROPHS, MG, CBC, ADIFF, ANEU, MYCO, CMP, CAION, GFR ####[address] [address] Eosinophil, Absolute 0.0 10 3/mcL Normal 0.0-0.7 [facility] ([place]) Comment on above: Performed By: #### P HOS, TROPHS, MG, CBC, ADIFF, ANEU, MYCO, CMP, CAION, GFR ####[address] [address] Eosinophils/100 WBC (Bld) 0.0 % Normal 0.0-6.0 [facility] ([place]) Comment on above: Performed By: #### P HOS, TROPHS, MG, CBC, ADIFF, ANEU, MYCO, CMP, CAION, GFR ####[address] [address] Lymphocyte, Absolute 0.3 10 3/mcL Low 0.9-4.3 [facility] ([place] Comment on above: Performed By: #### P HOS, TROPHS, MG, CBC, ADIFF, ANEU, MYCO, CMP, CAION, GFR ####[address] [address] Lymphocytes/100 WBC (Bld) 3.6 % Low 20.0-40.0 [facility] ([place] Comment on above: Performed By: #### P HOS, TROPHS, MG, CBC, ADIFF, ANEU, MYCO, CMP, CAION, GFR ####[address] [address] Monocyte, Absolute 0.2 10 3/mcL Normal 0.1-1.4 [facility] ([place] Comment on above: Performed By: #### P HOS, TROPHS, MG, CBC, ADIFF, ANEU, MYCO, CMP, CAION, GFR ####[address] [address] Monocytes/100 WBC (Bld) 1.9 % Low 2.0-13.0 A [facility] ([place]) Comment on above: Performed By: #### P HOS, TROPHS, MG, CBC, ADIFF, ANEU, MYCO, CMP, CAION, GFR ####[place] [address] [address] [place] [address] Neutrophils/100 WBC (Bld) 94.1 % High 50.0-75.0 [facility] ([place]) Comment on above: Performed By: #### P HOS, TROPHS, MG, CBC, ADIFF, ANEU, MYCO, CMP, CAION, GFR ####[address] [address] .GFRon 09-02-2023 GFR Non- >60 Normal [facility] ([place]) Comment on above: Result Comment: GFR Population [...] CBC, ADIFF, ANEU, MYCO, CMP, CAION, GFR ####[address] [address] GFR >60 Normal [facility] ([place] Comment on above: Result Comment: GFR Population [...] CBC, ADIFF, ANEU, MYCO, CMP, CAION, GFR ####[address] [address] .NEUABSon 09-02-2023 Neutrophil, Absolute 6.8 10 3/mcL Normal 2.3-8.1 [facility] ([place] Comment on above: Performed By: #### L AC #### [place] [address] Neutrophil, Absolute 9.1 10 3/mcL High 2.3-8.1 [facility] ([place] Comment on above: Performed By: #### P HOS, TROPHS, MG, CBC, ADIFF, ANEU, MYCO, CMP, CAION, GFR ####[place] [address] APTTon 09-02-2023 aPTT Coag (Bld) [Time] 67.5 s High 25.0-35.0 [facility] ([place] Comment on above: Result Comment: For Heparin anticoagulation therapy, the recommended therapeutic range is: 54-77 seconds (APTT Correlation with Anti-Xa therapeutic range of 0.3-0.7 units/ml). PLEASE REFERENCE THE PHARMACY PROTOCOL FOR DOSING. Heparin dose (APTT) Heparin IV Normal [facility] ([place] aPTT Coag (Bld) [Time] 27.8 s Normal 25.0-35.0 [facility] ([place]) Comment on above: Result Comment: For Heparin anticoagulation therapy, the recommended therapeutic range is: 54-77 seconds (APTT Correlation with Anti-Xa therapeutic range of 0.3-0.7 units/ml). PLEASE REFERENCE THE PHARMACY PROTOCOL FOR DOSING. Heparin dose (APTT) Heparin IV Normal [facility] ([place]) BGon 09-02-2023 Barometric Pressure 714 mmHg Normal [facility] ([place]) Comment on above: Performed By: #### B G #### [address] [address] Base excess Calc (Bld) [Moles/Vol] 1.5 mmol/L Normal [facility] ([place]) Comment on above: Performed By: #### B G #### [address] [address] CO2 [Moles/Vol] 27.8 mmol/L Normal 22.0-30.0 [facility] ([place]) Comment on above: Performed By: #### B G #### [address] [address] HCO3 (Bld) [Moles/Vol] 26.5 mmol/L Normal 21.0-29.0 A [facility] ([place]) Comment on above: Performed By: #### B G #### [place] [id number] Oxygen (Bld) [Partial pressure] 130.5 mm[Hg] High 74.0-108.0 [facility] ([place]) Comment on above: Performed By: #### B G #### [place] [id number] Oxygen saturation in Blood 98.7 % High 92.0-96.0 [facility] ([place]) Comment on above: Performed By: #### B G #### [address] [address] pCO2 43.2 mmHg Normal 32.0-46.0 [facility] ([place]) Comment on above: Performed By: #### B G #### [address] [address] pH (Bld) 7.406 [pH] Normal 7.380-7.460 [facility] ([place]) Comment on above: Performed By: #### B G #### [address] [address] CAIONon 09-02-2023 Calcium Ionized 0.99 mmol/L Low 1.12-1.32 [facility] ([place]) Comment on above: Performed By: #### P HOS, TROPHS, MG, CBC, ADIFF, ANEU, MYCO, CMP, CAION, GFR ####[place] [address] CBCon 09-02-2023 Erythrocyte distribution width (RBC) [Ratio] 14.4 % Normal 11.5-15.5 [facility] ([place]) Comment on above: Performed By: #### L AC #### [place] [address] Hematocrit (Bld) [Volume fraction] 39.9 % Normal 34.0-46.0 [facility] ([place]) Comment on above: Performed By: #### L AC #### [place] [address] Hgb 13.4 G/dL Normal 12.0-16.0 [facility] ([place]) Comment on above: Performed By: #### L AC #### [place] [address] MCH (RBC) [Entitic mass] 30.8 pg Normal 27.0-33.0 [facility] ([place]) Comment on above: Performed By: #### L AC #### [place] [address] MCHC 33.6 G/dL Normal 32.0-36.0 [facility] ([place]) Comment on above: Performed By: #### L AC #### [place] [address] MCV (RBC) [Entitic vol] 91.5 fL Normal 80.0-99.0 A [facility] ([place]) Comment on above: Performed By: #### L AC #### [place] [id number] Platelet 278 10 3/mcL Normal 150-450 [facility] ([place]) Comment on above: Performed By: #### L AC #### [place] [id number] Platelet mean volume (Bld) [Entitic vol] 7.2 fL Normal 6.6-10.5 [facility] ([place]) Comment on above: Performed By: #### L AC #### [place] [address] RBC 4.36 10 6/mcL Normal 4.10-5.30 [facility] ([place] Comment on above: Performed By: #### L AC #### [place] [address] WBC 7.7 10 3/mcL Normal 4.5-10.8 [facility] ([place] Comment on above: Performed By: #### L AC #### [place] [address] Erythrocyte distribution width (RBC) [Ratio] 14.5 % Normal 11.5-15.5 [facility] ([place] Comment on above: Performed By: #### P HOS, TROPHS, MG, CBC, ADIFF, ANEU, MYCO, CMP, CAION, GFR ####[place] [address] Hematocrit (Bld) [Volume fraction] 42.1 % Normal 34.0-46.0 [facility] ([place] Comment on above: Performed By: #### P HOS, TROPHS, MG, CBC, ADIFF, ANEU, MYCO, CMP, CAION, GFR ####[place] [address] Hgb 13.8 G/dL Normal 12.0-16.0 [facility] ([place] Comment on above: Performed By: #### P HOS, TROPHS, MG, CBC, ADIFF, ANEU, MYCO, CMP, CAION, GFR ####[place] [address] MCH (RBC) [Entitic mass] 30.3 pg Normal 27.0-33.0 [facility] ([place] Comment on above: Performed By: #### P HOS, TROPHS, MG, CBC, ADIFF, ANEU, MYCO, CMP, CAION, GFR ####[place] [address] MCHC 32.9 G/dL Normal 32.0-36.0 [facility] ([place] Comment on above: Performed By: #### P HOS, TROPHS, MG, CBC, ADIFF, ANEU, MYCO, CMP, CAION, GFR ####[place] [address] MCV (RBC) [Entitic vol] 92.3 fL Normal 80.0-99.0 A [facility] ([place]) Comment on above: Performed By: #### P HOS, TROPHS, MG, CBC, ADIFF, ANEU, MYCO, CMP, CAION, GFR ####[place] [address] Platelet 314 10 3/mcL Normal 150-450 [facility] ([place] Comment on above: Performed By: #### P HOS, TROPHS, MG, CBC, ADIFF, ANEU, MYCO, CMP, CAION, GFR ####[place] [address] Platelet mean volume (Bld) [Entitic vol] 7.3 fL Normal 6.6-10.5 [facility] ([place] Comment on above: Performed By: #### P HOS, TROPHS, MG, CBC, ADIFF, ANEU, MYCO, CMP, CAION, GFR ####[place] [address] RBC 4.56 10 6/mcL Normal 4.10-5.30 [facility] ([place] Comment on above: Performed By: #### P HOS, TROPHS, MG, CBC, ADIFF, ANEU, MYCO, CMP, CAION, GFR ####[place] [address] WBC 9.6 10 3/mcL Normal 4.5-10.8 [facility] ([place] Comment on above: Performed By: #### P HOS, TROPHS, MG, CBC, ADIFF, ANEU, MYCO, CMP, CAION, GFR ####[place] [address] CMPon 09-02-2023 Albumin Level 3.3 G/dL Normal 3.2-4.8 [facility] ([place] Comment on above: Performed By: #### P HOS, TROPHS, MG, CBC, ADIFF, ANEU, MYCO, CMP, CAION, GFR ####[address] [address] Albumin/Globulin [Mass ratio] 0.9 {ratio} Normal 0.9-1.6 [facility] ([place] Comment on above: Performed By: #### P HOS, TROPHS, MG, CBC, ADIFF, ANEU, MYCO, CMP, CAION, GFR ####[address] [address] ALP [Catalytic activity/Vol] 130 U/L High 38-126 [facility] ([place] Comment on above: Performed By: #### P HOS, TROPHS, MG, CBC, ADIFF, ANEU, MYCO, CMP, CAION, GFR ####[address] [address] ALT [Catalytic activity/Vol] 226 U/L High 10-49 [facility] ([place] Comment on above: Performed By: #### P HOS, TROPHS, MG, CBC, ADIFF, ANEU, MYCO, CMP, CAION, GFR ####[address] [address] AST [Catalytic activity/Vol] 230 U/L High 8-34 [facility] ([place] Comment on above: Performed By: #### P HOS, TROPHS, MG, CBC, ADIFF, ANEU, MYCO, CMP, CAION, GFR ####[address] [address] Bili Total 0.40 mg/dL Normal 0.20-1.20 [facility] ([place]) Comment on above: Result Comment: Use of this assay is not recommended for patients undergoing treatment with eltrombopag due to the potential for falsely elevated results. Performed By: #### P HOS, TROPHS, MG, CBC, ADIFF, ANEU, MYCO, CMP, CAION, GFR ####[address] [address] BUN/Creatinine Ratio 25.6 ratio High 10.0-22.0 [facility] ([place]) Comment on above: Performed By: #### P HOS, TROPHS, MG, CBC, ADIFF, ANEU, MYCO, CMP, CAION, GFR ####[place] [address] Calcium [Mass/Vol] 8.0 mg/dL Low 8.7-10.4 [facility] ([place]) Comment on above: Performed By: #### P HOS, TROPHS, MG, CBC, ADIFF, ANEU, MYCO, CMP, CAION, GFR ####[place] [address] Chloride [Moles/Vol] 106 mmol/L Normal 98-110 [facility] ([place] Comment on above: Performed By: #### P HOS, TROPHS, MG, CBC, ADIFF, ANEU, MYCO, CMP, CAION, GFR ####[place] [address] CO2 [Moles/Vol] 28 mmol/L Normal 22-32 [facility] ([place] Comment on above: Performed By: #### P HOS, TROPHS, MG, CBC, ADIFF, ANEU, MYCO, CMP, CAION, GFR ####[place] [address] Creatinine [Mass/Vol] 0.78 mg/dL Normal 0.50-1.20 [facility] ([place]) Comment on above: Performed By: #### P HOS, TROPHS, MG, CBC, ADIFF, ANEU, MYCO, CMP, CAION, GFR ####[place] [address] Electrolyte Balance 6.0 mEq/L Normal 4.0-15.0 [facility] ([place]) Comment on above: Performed By: #### P HOS, TROPHS, MG, CBC, ADIFF, ANEU, MYCO, CMP, CAION, GFR ####[place] [address] Globulin 3.5 G/dL Normal 1.5-3.8 [facility] ([place] Comment on above: Performed By: #### P HOS, TROPHS, MG, CBC, ADIFF, ANEU, MYCO, CMP, CAION, GFR ####[place] [id number] Glucose [Mass/Vol] 165 mg/dL High 82-115 [facility] ([place]) Comment on above: Performed By: #### P HOS, TROPHS, MG, CBC, ADIFF, ANEU, MYCO, CMP, CAION, GFR ####[address] [address] Potassium [Moles/Vol] 2.9 mmol/L Low 3.5-5.0 [facility] ([place]) Comment on above: Performed By: #### P HOS, TROPHS, MG, CBC, ADIFF, ANEU, MYCO, CMP, CAION, GFR ####[place] [address] Sodium [Moles/Vol] 140 mmol/L Normal 136-145 [facility] ([place]) Comment on above: Performed By: #### P HOS, TROPHS, MG, CBC, ADIFF, ANEU, MYCO, CMP, CAION, GFR ####[place] [address] Total Protein 6.8 G/dL Normal 5.7-8.2 [facility] ([place] Comment on above: Result Comment: No te - New Reference Range in effect 20 Performed By: #### P HOS, TROPHS, MG, CBC, ADIFF, ANEU, MYCO, CMP, CAION, GFR ####[place] [address] Urea nitrogen [Mass/Vol] 20.0 mg/dL Normal 8.0-22.0 [facility] ([place] Comment on above: Performed By: #### P HOS, TROPHS, MG, CBC, ADIFF, ANEU, MYCO, CMP, CAION, GFR ####[address] [address] HEPACon 09-02-2023 Hep A IgM Ab Non-Reactive Normal Non-Reactiv e [facility] ([place]) Comment on above: Performed By: #### L AC #### [place] [address] Hep A IgM Ab Int Normal [facility] ([place]) Comment on above: Result Comment: No s erological evidence of a current Hepatitis A infection. See Interp Performed By: #### L AC #### [place] [address] Hep B Core IgM Ab Non-Reactive Normal Non-Reacti v e [facility] ([place]) Comment on above: Performed By: #### L AC #### [place] [address] Hep B Core IgM Ab Int Normal [facility] ([place]) Comment on above: Result Comment: Samp les with a value < 0.80 Index are considered nonreactive (negative) for IgM antibodies to hepatitis B core antigen. See Interp Performed By: #### L AC #### [place] [address] Hep C Ab Non-Reactive Normal Non-Reactiv [facility] ([place]) Comment on above: Performed By: #### L AC #### [place] [address] Hep C Ab Int [facility] ([place]) Comment on above: Result Comment: Nonr eactive: Samples with a value < 0.80 are considered nonreactive (negative) for antibodies to HCV. A negative test result does not exclude the possibility of exposure to or infection with HCV. HCV antibodies may be undetectable in some stages of the infection and in some clinical conditions. See Interp Performed By: #### L AC #### [place] [address] Hep B Surf Ag Non-Reactive Normal Non-Reactiv [facility] ([place] Comment on above: Performed By: #### L AC #### [place] [address] LABORATORYOrdered By: Ariadna Estes on 09-02-2023 Lactate [...] mg/dL Normal 2.4 - 5 .1 mg/dL [facility] Comment on above: Interpretive Data: * *Note [...] Comment on above: Interpretive Data: T jt [employer] (CHEST, 1992, 102:[id number]) [...] Lactic Acid Lvl 1.7 mmol/L Normal 0.2-2.0 [facility] ([place] Comment on above: Performed By: #### L AC ####[place] [address] Lactic Acid Lvl 2.8 mmol/L High 0.2-2.0 [facility] ([place] Comment on above: Performed By: #### L AC #### [place] [address] Lactic Acid Lvl 2.5 mmol/L High 0.2-2.0 [facility] ([place] Comment on above: Performed By: #### L AC #### [place] [address] Lactic Acid Lvl 1.8 mmol/L Normal 0.2-2.0 [facility] ([place] Comment on above: Performed By: #### L AC ####[place] [address] MGon 09-02-2023 Magnesium [Mass/Vol] 2.4 mg/dL Normal 1.6-2.4 [facility] ([place]) Comment on above: Performed By: #### P HOS, TROPHS, MG, CBC, ADIFF, ANEU, MYCO, CMP, CAION, GFR ####[address], [place] [address] No Panel Informationon 09-02 Microscopic examination of blood, culture Culture has been received in lab and is no growth to date. Routine cultures are held for [address] [facility] Culture Urine No growth at [address] [facility] No Panel InformationOrdered By: Sandy Davis on 09-02-2023 Culture Respiratory with Gram Stain Normal respiratory renu present at 48 hours Sensitivity testing not indicated [facility] Comment on above: Requests for Mycopla sma, Legionella, Fungi, Mycobacteria, Chlamydia, and Viruses require ordering of those individual tests. GS Rare Polymorphonucle ar cells Rare Gram Positive Cocci Rare Gram Positive [facility] Comment on above: Requests for Mycopla sma, Legionella, Fungi, Mycobacteria, Chlamydia, and Viruses require ordering of those individual tests. PBNPon 09-02-2023 Natriuretic peptide B (Bld) [Mass/Vol] 5863 pg/mL High 0-900 [facility] ([place]) Comment on above: Result Comment: NT-p roBNP results of less than 300 pg/mL effectively rules out acute congestive heart failure with 99% negative predictive value. Performed By: #### P BNP #### [place] [id number] [address] [place] [address] PHOSon 09-02-2023 Phosphate [Mass/Vol] 3.6 mg/dL Normal 2.4-5.1 [facility] ([place] Comment on above: Result Comment: No te - New Reference Range in effect 20 Performed By: #### P HOS, TROPHS, MG, CBC, ADIFF, ANEU, MYCO, CMP, CAION, GFR ####[place] [id number] [address] [place] [address] PROon 09-02-2023 INR Coag (PPP) [Relative time] 1.0 {INR} Normal [facility] ([place]) Comment on above: Result Comment: [employer] (CHEST, 1992, 102:[id number]) recommended therapeutic range for oral anticoagulant therapy is: LOW RISK: Prophylaxis of venous thrombosis INR: 2.0-3.0 Treatment of pulmonary embolism 2.0-3.0 Prevention of systemic embolism 2.0-3.0 HIGH RISK: Mechanical prosthetic valves 2.5-3.5 Performed By: #### L AC #### [place] [address] PT Coag (PPP) [Time] 11.8 s Normal 9.0-14.2 [facility] ([place]) Comment on above: Result Comment: Effe ctive 05/06/08, Protime results may be affected by some antibiotics (i.e. Ciprofloxacin, Azithromycin, Bactrim) which may potentiate the action of oral anticoagulants, with further increases in Protime/INR. Performed By: #### L AC #### [place] [address] TROPHSon 09-02-2023 Troponin I High Sensitivity 3010.17 ng/L High 0.00-34.00 [facility] ([place]) Comment on above: Performed By: #### L AC #### [place] [address] Troponin I High Sensitivity 2152.97 ng/L High 0.00-34.00 [facility] ([place] Comment on above: Performed By: #### T ROP ####[place] [address] Troponin I High Sensitivity 1582.01 ng/L High 0.00-34.00 [facility] ([place] Comment on above: Performed By: #### L AC #### [place] [address] Troponin I High Sensitivity 926.56 ng/L High 0.00-34.00 [facility] ([place] Comment on above: Performed By: #### P HOS, TROPHS, MG, CBC, ADIFF, ANEU, MYCO, CMP, CAION, GFR ####[place] [address] US ABDOMEN LIMITEDon 023 US ABDOMEN LIMITED ORIGINAL EXAMINATION: LIMITED ABDOMINAL [id number]/11/2023 12:19 pm COMPARISON: None HISTORY: ORDERING SYSTEM [...] 09/02/2023 2:27:43 PM Ordering Provider: FRANCESCA Soto [facility] ([place]) XR CHEST 1 VIEWon 09-02-2023 XR CHEST [...] 09/02/2023 8:06:12 AM Ordering Provider: FRANCESCA Soto [facility] ([place]) Coronavirus 2019on 1 COVID 19 Result [employer] Normal Negative for COVID19 (SARS CoV2) by PCR. [facility] Comment on above: Result Comment: Nega tive for This test was developed and its performance characteristics determined by [facility]'s [facility] [place]. This test has been authorized by FDA [...] developed and its performance characteristics determined by [facility] [place]. This test has been authorized by FDA [...] developed and its performance characteristics determined by [facility] [place]. This test has been authorized by FDA under an Emergency Use Authorization (EUA). This test has been validated in accordance with the FDA's Guidance Document Policy for Diagnostics Testing in Laboratories Certified to Perform High Complexity Testing under CLIA prior to Emergency use Authorization for Coronavirus Disease 2019 during the Public Health Emergency issued on December 21, 2019. COVID 19 Source [employer]HOU[employer] WORKER Normal [facility] Comment on above: Result Comment: Naso pharyngeal Corrected on 10/31 AT 0655: Previously reported as NASOPHARYNGEAL Swab Corrected on 10/31 AT 0655: Previously reported as NASOPHARYNGEAL Office Visit: new patienton 01-26-2017 Documentation of current medications (procedure) Done Invalid Interpretation Code [employer] Work Phone: Smoking cessation education (procedure) yes Invalid Interpretation Code [employer] Work Phone: Tobacco smoking status NHIS Never Invalid Interpretation Code [employer] Work Phone: Tobacco use [facility] Current every day smoker Invalid Interpretation Code [employer] Work Phone: [phone] Replaced Document: Tremayne BOLDEN Observationson 01-12-2017 electrocardiogram interpretation Sinus Bradycardia - Negative T-waves - Anterior ischemia. ABNORMAL Invalid Interpretation Code [employer] Work Phone: [phone] GE use only - for [employer] import when terms are not otherwise specified 443 ms Invalid Interpretation Code [employer] Work Phone: [phone] P wave axis, electrocardiogram 76 deg Invalid Interpretation Code [employer] Work Phone: [phone] TX interval, electrocardiogram 144 ms Invalid Interpretation Code [employer] Work Phone: [phone] Pulse (Heart Rate) 57 /min Invalid Interpretation Code [employer] Work Phone: [phone] QRS axis, electrocardiogram 65 deg Invalid Interpretation Code [employer] Work Phone: [phone] QRS duration, electrocardiogram 80 ms Invalid Interpretation Code [employer] Work Phone: [phone] QT interval, electrocardiogram new path ms Invalid Interpretation Code [employer] Work Phone: [phone] T wave axis, electrocardiogram 1 deg Invalid Interpretation Code [employer] Work Phone: [phone] Clinical Lists Update: Pre internal carver 01-06-2017 Left ventricular Ejection fraction 66 % Invalid Interpretation Code [employer] Work Phone: [phone] Vital Signs Date Time Vital Sign Value Performing Clinician Facility 07-26-2025 13:37-0400 Body temperature 97 [degF] Alfonso Ozuna [employer] Work Phone: [facility] 07-26-2025 13:37-0400 Diastolic blood pressure 82 mm[Hg] Alfonso Ozuna [employer] WORK[employer] Work Phone: [facility] 07-26-2025 13:37-0400 Heart rate 72 /min Alfonso Ozuna [employer] WORK[employer] Work Phone: [facility] 07-26-2025 13:37-0400 Respiratory rate 18 /min Alfonso Ouzna [employer] WORK[employer] Work Phone: [facility] 07-26-2025 13:37-0400 SaO2% (BldA) [Mass fraction] 100 % Alfonso Ozuna [employer] WORK[employer] Work Phone: [facility] 07-26-2025 13:37-0400 Systolic blood pressure 140 mm[Hg] Alfonso Ozuna [employer] WORK[employer] Work Phone: [facility] 07-26-2025 06:00-0400 Body mass index (BMI) [Ratio] 17.2 kg/m2 Alfonso Ozuna [employer] WORK[employer]C Work Phone: [facility] 07-26-2025 06:00-0400 Body weight 45.6 kg Alfonsoteofilo Ozuna [employer]HOU[employer] WORKER[employer]C Work Phone: [facility] 07-25-2025 14:09-0400 Body height 162.56 cm Alfonso Ozuna [employer] WORK[employer] Work Phone: [facility] 07-24-2025 16:39-0400 Inhaled oxygen flow rate 2 L/min Alfonso Ozuna [employer]HOU[employer] WORK[employer]C Work Phone: [facility] 07-23-2025 07:25-0400 Inhaled oxygen concentration 99 % Alfonsoteofilo Ozuna [employer]HOU[employer] WORKER[employer]C Work Phone: [facility] 07-23-2025 01:15-0400 Heart rate 96 /min Alfonso Ozuna [employer] WORK[employer] Work Phone: [facility] 07-23-2025 01:15-0400 Respiratory rate 18 /min Alfonso Ozuna [employer] WORK[employer] Work Phone: [facility] 07-23-2025 00:00-0400 Inhaled oxygen flow rate 4 L/min Alfonso Ozuna [employer] WORK[employer] Work Phone: [facility] 07-22-2025 23:00-0400 Diastolic blood pressure 67 mm[Hg] Alfonso Ozuna [employer] WORKER[employer]C Work Phone: [facility] 07-22-2025 23:00-0400 SaO2% (BldA) [Mass fraction] 96 % Alfonso Ozuna [employer] WORK[employer]C Work Phone: [facility] 07-22-2025 23:00-0400 Systolic blood pressure 169 mm[Hg] Alfonso Ozuna [employer]HOU[employer] WORKER[employer]C Work Phone: [facility] 07-22-2025 22:00-0400 Body temperature 99.6 [degF] Alfonso Ozuna [employer] WORK[employer]C Work Phone: [facility] 07-22-2025 09:23-0400 Body height 162.56 cm Alfonso Laith [employer]HOU[employer] WORKER[employer]C Work Phone: [facility] 07-22-2025 09:23-0400 Body weight 50.7 kg Alfonso Ozuna [employer] WORKER[employer]C Work Phone: [facility] 07-22-2025 06:46-0400 Inhaled oxygen concentration 91 % Alfonso Ozuna [employer] WORKER[employer]C Work Phone: [facility] 07-22-2025 05:36-0400 Body mass index (BMI) [Ratio] 19.1 kg/m2 Alfonso Ozuna [employer] WORKER[employer]C Work Phone: [facility] 06-18-2025 03:58-0400 SaO2% (BldA) [Mass fraction] 97.1 % JHONNY VALENCIA MD [facility] 06-17-2025 04:13-0400 SaO2% (BldA) [Mass fraction] 97.7 % JHONNY VALENCIA MD [facility] 06-16-2025 11:07-0400 SaO2% (BldA) [Mass fraction] 97.1 % JHONNY VALENCIA MD [facility] 11-09-2024 07:16-0500 Body temperature 98.06 [degF] JHONNY VALENCIA MD [facility] 11-09-2024 07:16-0500 Diastolic Blood Pressure Non-Invasive 72 mm[Hg] JHONNY VALENCIA MD [facility] 11-09-2024 07:16-0500 Heart rate 64 /min JHONNY VALENCIA MD [facility] 11-09-2024 07:16-0500 Respiratory rate 20 /min JHONNY VALENCIA MD [facility] 11-09-2024 07:16-0500 Systolic Blood Pressure Non-Invasive 161 mm[Hg] JHONNY VALENCIA MD [facility] 11-09-2024 06:53-0500 Heart rate 72 /min JHONNY VALENCIA MD [address] [place] [address] 11-09-2024 06:53-0500 Respiratory rate 20 /min JHONNY VALENCIA MD [facility] 11-09-2024 06:22-0500 Heart rate 63 /min JHONNY VALENCIA MD [address] 11-09-2024 04:03-0500 Body temperature 98.42 [degF] JHONNY VALENCIA MD [facility] 11-09-2024 04:03-0500 Diastolic Blood Pressure Non-Invasive 74 mm[Hg] JHONNY VALENCIA MD [facility] 11-09-2024 04:03-0500 Heart rate 63 /min JHONNY VALENCIA MD [facility] 11-09-2024 04:03-0500 Mean blood pressure 97 mm[Hg] JHONNY VALENCIA MD [facility] 11-09-2024 04:03-0500 Respiratory rate 22 /min HJONNY VALENCIA MD [facility] 11-09-2024 04:03-0500 Systolic Blood Pressure Non-Invasive 162 mm[Hg] JHONNY VALENCIA MD [facility] 11-09-2024 02:46-0500 Heart rate 63 /min JHONNY VALENCIA MD [facility] 11-09-2024 00:45-0500 Blood Pressure Cuff Size JHONNY VALENCIA MD [facility] 11-09-2024 00:45-0500 Blood Pressure Location JHONNY VALENCIA MD [facility] 11-09-2024 00:45-0500 Body temperature 98.06 [degF] JHONNY VALENCIA MD [facility] 11-09-2024 00:45-0500 Diastolic Blood Pressure Non-Invasive 63 mm[Hg] JHONNY VALENCIA MD [facility] 11-09-2024 00:45-0500 Heart rate 65 /min JHONNY VALENCIA MD [facility] 11-09-2024 00:45-0500 Reason For Taking VItal Signs JHONNY VALENCIA MD [facility] 11-09-2024 00:45-0500 Systolic Blood Pressure Non-Invasive 133 mm[Hg] JHONNY VALENCIA MD [facility] 11-08-2024 19:18-0500 Blood Pressure Cuff Size JHONNY VALENCIA MD [facility] 11-08-2024 19:18-0500 Blood Pressure Location JHONNY VALENCIA MD [facility] 11-08-2024 19:18-0500 Reason For Taking VItal Signs JHONNY VALENCIA MD [facility] 11-08-2024 14:34-0500 Reason For Taking VItal Signs JHONNY VALENCIA MD [facility] 11-08-2024 11:03-0500 Blood Pressure Cuff Size JHONNY VALENCIA MD [facility] 11-08-2024 11:03-0500 Blood Pressure Location JHONNY VALENCIA MD [facility] 11-08-2024 11:03-0500 Blood Pressure Method JHONNY VALENCIA MD [facility] 11-08-2024 07:29-0500 Blood Pressure Method JHONNY VALENCIA MD [facility] 11-08-2024 06:19-0500 Heart rate 70 /min JHONNY VALENCIA MD [facility] 11-07-2024 23:30-0500 Heart rate 54 /min JHONNY VALENCIA MD [facility] 11-07-2024 23:30-0500 Mean blood pressure 98 mm[Hg] JHONNY VAELNCIA MD [facility] 11-07-2024 12:22-0500 Mean blood pressure 80 mm[Hg] JHONNY VALENCIA MD [facility] 11-07-2024 03:30-0500 Body temperature 97.34 [degF] JHONNY VALENCIA MD [facility] 11-06-2024 23:33-0500 Body temperature 97.52 [degF] JHONNY VALENCIA MD [facility] 11-06-2024 03:27-0500 Body temperature 98.06 [degF] JHONNY VALENCIA MD [facility] 11-06-2024 03:24-0500 SaO2% (BldA) [Mass fraction] 97.4 % JHONNY VALENCIA MD [facility] 11-05-2024 08:33-0500 Heart rate 107 /min JHONNY VALENCIA MD [facility] 11-05-2024 03:15-0500 SaO2% (BldA) [Mass fraction] 94.7 % JHONNY VALENCIA MD [facility] 11-04-2024 12:29-0500 SaO2% (BldA) [Mass fraction] 98.1 % JHONNY VALENCIA MD [facility] 11-04-2024 11:10-0500 Body height 157.5 cm JHONNY VALENCIA MD [facility] 11-04-2024 11:10-0500 Body weight 54.5 kg JHONNY VALENCIA MD [facility] 11-04-2024 11:10-0500 Body weight 21.97 kg/m2 JHONNY VALENCIA MD [facility] 10-03-2024 14:26-0500 Body height 162.6 cm Kenzie Callahanman BUSINESS DEVELOPMENT DIRECTOR-[employer] Work Phone: [phone] [place] [address] 10-03-2024 14:26-0500 Body mass index (BMI) [Ratio] 18.02 kg/m2 Kenzie Marizol BUSINESS DEVELOPMENT DIRECTOR-[employer]DEL [employer]ER Work Phone: [phone] [place] [address] 10-03-2024 14:26-0500 Body weight 47.63 kg Kenzie Marizol BUSINESS DEVELOPMENT DIRECTOR-[employer]DEL [employer]ER Work Phone: [phone] [place] [address] 10-03-2024 14:26-0500 Diastolic blood pressure 81 mm[Hg] Kenzie Marizol BUSINESS DEVELOPMENT DIRECTOR-SC[employer] MODEL [employer]ER Work Phone: [phone] [place] [address] 10-03-2024 14:26-0500 Heart rate 60 /min Kenzie Marizol BUSINESS DEVELOPMENT DIRECTOR-SCALE MODEL MAKER Work Phone: [phone] [place] [address] 10-03-2024 14:26-0500 Systolic blood pressure 195 mm[Hg] Kenzie Marizol BUSINESS DEVELOPMENT DIRECTOR-SCALE MODEL MAKER Work Phone: [phone] [place] [address] 09-18-2023 12:02-0500 Body height 162.6 cm Elvin Newbill PA-C Work Phone: [phone] [place] [address] 09-18-2023 12:02-0500 Body mass index (BMI) [Ratio] 17.7 kg/m2 Elvin Newbill PA-C Work Phone: [phone] [place] [address] 09-18-2023 12:02-0500 Body temperature 97.81 [degF] Elvin Newbill PA-C Work Phone: [facility] 09-18-2023 12:02-0500 Body weight 46.77 kg Elvin Newbill PA-C Work Phone: [facility] 09-18-2023 12:02-0500 Diastolic blood pressure 75 mm[Hg] Elvin Newbill PA-C Work Phone: [facility] 09-18-2023 12:02-0500 Heart rate 63 /min Elvin Newbill PA-C Work Phone: [facility] 09-18-2023 12:02-0500 SaO2% (BldA) [Mass fraction] 95 % Elvin Newbill PA-C Work Phone: [facility] 09-18-2023 12:02-0500 Systolic blood pressure 188 mm[Hg] Elvin Newbill PA-C Work Phone: [facility] 09-06-2023 16:00-0500 Heart rate 57 /min JHONNY VALENCIA MD [facility] 09-06-2023 14:28-0500 Body temperature 98.06 [degF] JHONNY VALENCIA MD [facility] 09-06-2023 14:28-0500 Diastolic Blood Pressure Non-Invasive 64 mm[Hg] JHONNY VALENCIA MD [facility] 09-06-2023 14:28-0500 Heart rate 60 /min JHONNY VALENCIA MD [facility] 09-06-2023 14:28-0500 Reason For Taking VItal Signs JHONNY VALENCIA MD [facility] 09-06-2023 14:28-0500 Respiratory rate 18 /min JHONNY VALENCIA MD [facility] 09-06-2023 14:28-0500 Systolic Blood Pressure Non-Invasive 138 mm[Hg] JHONNY VALENCIA MD [facility] 09-06-2023 12:38-0500 Heart rate 69 /min JHONNY VALENCIA MD [facility] 09-06-2023 12:38-0500 Respiratory rate 20 /min JHONNY VALENCIA MD [facility] 09-06-2023 11:05-0500 Blood Pressure Method JHONNY VALENCIA MD [facility] 09-06-2023 11:05-0500 Body temperature 97.88 [degF] JHONNY VALENCIA MD [facility] 09-06-2023 11:05-0500 Diastolic Blood Pressure Non-Invasive 76 mm[Hg] JHONNY VALENCIA MD [facility] 09-06-2023 11:05-0500 Heart rate 60 /min JHONNY VALENCIA MD [facility] 09-06-2023 11:05-0500 Respiratory rate 20 /min JHONNY VALENCIA MD [facility] 09-06-2023 11:05-0500 Systolic Blood Pressure Non-Invasive 138 mm[Hg] JHONNY VALENCIA MD [facility] 09-06-2023 08:50-0500 Heart rate 66 /min JHONNY VALENCIA MD [facility] 09-06-2023 08:45-0500 Blood Pressure Cuff Size JHONNY VALENCIA MD [facility] 09-06-2023 08:45-0500 Blood Pressure Location JHONNY VALENCIA MD [facility] 09-06-2023 08:45-0500 Blood Pressure Method JHONNY VALENCIA MD [facility] 09-06-2023 08:45-0500 Diastolic Blood Pressure Non-Invasive 74 mm[Hg] JHONNY VALENCIA MD [facility] 09-06-2023 08:45-0500 Systolic Blood Pressure Non-Invasive 136 mm[Hg] JHONNY VALENCIA MD [facility] 09-06-2023 07:18-0500 Blood Pressure Cuff Size JHONNY VALENCIA MD [facility] 09-06-2023 07:18-0500 Blood Pressure Location JHONNY VALENCIA MD [facility] 09-06-2023 07:18-0500 Blood Pressure Method JHONNY VALENCIA MD [facility] 09-06-2023 07:18-0500 Body temperature 97.88 [degF] JHONNY VALENCIA MD [facility] 09-06-2023 06:37-0500 Heart rate 62 /min JHONNY VALENCIA MD [facility] 09-06-2023 04:19-0500 Blood Pressure Location JHONNY VALENCIA MD [facility] 09-05-2023 23:52-0500 Blood Pressure Cuff Size JHONNY VALENCIA MD [facility] 09-05-2023 18:31-0500 Heart rate 63 /min JHONNY VALENCIA MD [facility] 09-05-2023 09:21-0500 Heart rate 78 /min JHONNY VALENCIA MD [facility] 09-05-2023 06:56-0500 Mean blood pressure 93 mm[Hg] JHONNY VALENCIA MD [facility] 09-04-2023 16:41-0500 Heart rate 70 /min JHONNY VALENCIA MD [facility] 09-03-2023 17:31-0500 SaO2% (BldA) [Mass fraction] 94.0 % JHONNY VALENCIA MD [facility] 09-03-2023 16:26-0500 Mean blood pressure 95 mm[Hg] JHONNY VALENCIA MD [facility] 09-03-2023 15:31-0500 Mean blood pressure 95 mm[Hg] JHONNY VALENCIA MD [facility] 09-03-2023 09:08-0500 Body height 157.5 cm JHONNY VALENCIA MD [facility] 09-03-2023 09:08-0500 Body weight 45.9 kg JHONNY VALENCIA MD [facility] 09-03-2023 09:08-0500 Body weight 18.5 kg/m2 JHONNY VALENCIA MD [facility] 09-03-2023 07:10-0500 SaO2% (BldA) [Mass fraction] 96.7 % JHONNY VALENCIA MD [employer] 09-02-2023 07:27-0500 SaO2% (BldA) [Mass fraction] 98.7 % JHONNY VALENCIA MD [employer] 01-26-2017 08:20-0400 BMI (Body Mass Index) 20.77 kg/m2 Rashidumi DeFinis [facility] Work Phone: 01-26-2017 08:20-0400 Body Temperature 97.8 [degF] Harumi DeFinis [facility] Work Phone: 01-26-2017 08:20-0400 BP Diastolic 65 mm[Hg] Harumi DeFinis [facility] Work Phone: 01-26-2017 08:20-0400 BP Systolic 125 mm[Hg] Harumi DeFinis [facility] Work Phone: 01-26-2017 08:20-0400 Height 162.56 cm Harumi DeFinis [facility] Work Phone: 01-26-2017 08:20-0400 Pulse [...] Start: 08-26-2025 ambulatory Alfonso Ozuna NP Facility :[facility] Start: 07-26-2025 End: 08-02-2025 ambulatory NANCY PAREDES [facility] Start: 07-26-2025 Dr. Kendall Doran MD -[facility] Start: 07-26-2025 Dr. Renee Encarnacion MD - [facility] Work Phone: Start: 07-25-2025 Dr. Renee Encarnacion MD - [facility] Work Phone: Start: 07-24-2025 Dr. Renee Encarnacion MD - [facility] Work Phone: Start: 07-23-2025 Dr. Renee Encarnacion MD - [facility] Work Phone: Start: 07-23-2025 Dr. Eleazar Valle DO -[facility] Start: 07-22-2025 Apple Carvalho DYEHOUSE WORKER- -[facility] Start: 07-22-2025 Dr. Renee Encarnacion MD - [facility] Work Phone: Start: 07-22-2025 Dr. Eleazar Valle DO -[facility] Start: 07-21-2025 Dr. Renee Encarnacion MD - [facility] Work Phone: Start: 07-21-2025 Dr. Eleazar Valle DO -[facility] Start: 07-20-2025 Dr. Gerard Sesay [facility] Work Phone: Start: 07-19-2025 Dr. Gerard Santos DO -[facility] Work Phone: Start: 07-18-2025 Dr. Gerard Santos DO -[facility] Work Phone: Start: 07-17-2025 Dr. Eleazar Valle DO -[facility] Start: 07-16-2025 ambulatory Alfonso Ozuna DYEHOUSE WORKER Facility :[facility] Start: 07-16-2025 ambulatory Jack Yan ty:[facility] Start: 07-16-2025 End: 07-26-2025 Evaluation and management of inpatient Alfonso Ozuna DYEHOUSE WORKER-C Work Phone: -Intensive Care Unit Start: 07-16-2025 End: 07-26-2025 Dr. [facility] Work Phone: Start: 07-02-2025 End: 08-06-2025 ambulatory CLAUDE PAREDES [facility] Start: 06-16-2025 End: 06-25-2025 Evaluation and management of inpatient JHONNY VALENCIA MD [facility] Start: 06-16-2025 End: 06-16-2025 Emergency department patient visit JACK MYERS [facility] Start: 03-12-2025 ambulatory ASTRID PAREDES [facility] Start: 03-07-2025 End: 03-07-[address] [facility] Start: 11-10-2024 End: 11-17-2024 [facility] Start: 11-04-2024 End: 11-09-2024 Evaluation and management of inpatient JHONNY VALENCIA MD [facility] Start: 11-04-2024 End: 11-04-2024 Emergency department patient visit ALFONSO OZUNA [facility] Start: 10-21-2024 End: 10-23-2024 ambulatory KRYSTIAN STEELE [facility] Start: 10-09-2024 End: 10-10-2024 Emergency department patient visit JOSS ARMANDO [facility] Start: 10-03-2024 End: 10-06-2024 Evaluation and management of inpatient ALFONSO OZUNA [facility] Start: 10-03-2024 End: 10-03-2024 ambulatory [facility] Start: 10-03-2024 End: 10-03-2024 Encounter for general adult medical examination without abnormal findings [facility] Start: 10-03-2024 End: 10-03-2024 Office outpatient visit 25 minutes Kenzie B [facility] BUSINESS DEVELOPMENT DIRECTOR-SCALE MODEL MAKER Work Phone: [facility] Comment on above: Primary hypertension (Primary Dx); Congestive heart failure, unspecified HF chronicity, unspecified heart failure type; 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, unspecified vessel or lesion type; Chronic obstructive pulmonary disease, unspecified COPD type (Multi); Health maintenance examination Start: 10-03-2024 End: 10-03-2024 Patient encounter status Kenzie Sidney [facility] BUSINESS DEVELOPMENT DIRECTOR-SCALE MODEL MAKER Work Phone: [facility] Work Phone: Start: 09-18-2023 End: 09-18-2023 Office outpatient new 45 minutes Elvin Blanc PA-C Work Phone: [facility] Comment on above: Chronic obstructive pulmonary disease, unspecified COPD type (CMS/HCC) (Primary Dx); 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, unspecified vessel or lesion type (CMS/HCC); Primary hypertension; Congestive heart failure, unspecified HF chronicity, unspecified heart failure type (CMS/HCC) Start: 09-02-2023 ambulatory JACK Tian ty:[facility] Start: 09-02-2023 End: 09-06-2023 Evaluation and management of inpatient DO FERCHO VILLASEÑOR Facility:[facility] Start: 09-02-2023 End: 09-06-2023 Evaluation and management of inpatient JHONNY VALENCIA MD [facility] Start: 09-02-2023 ambulatory JACK Renee AMOL Cobosi ty:[facility] Start: 06-16-2021 Preoperative state Alfonso Laith DYEHOUSE WORKER-C Work Phone: [facility] Procedures Date Procedure Procedure Detail Performing Clinician Start: 07-26-2025 Estimated creatinine clearance Alfonso Laith DYEHOUSE WORKER-C Work Phone: Start: 07-26-2025 Mean corpuscular hem oglobin concentration determination Alfonso Laith DYEHOUSE WORKER-C Work Phone: Start: 07-26-2025 Neutrophil count Alfonso Laith DYEHOUSE WORKER-C Work Phone: Start: 07-26-2025 Nucleated red blood cell count procedure Alfonso Laith DYEHOUSE WORKER-C Work Phone: Start: 07-26-2025 Platelet mean volume determination Alfonso Laith DYEHOUSE WORKER-C Work Phone: Start: 07-25-2025 CT angiography of ch est with contrast Alfonso Laith DYEHOUSE WORKER-C Work Phone: Start: 07-25-2025 D-dimer assay, quantitative Alfonso Laith DYEHOUSE WORKER-C Work Phone: Start: 07-22-2025 Videoswallow Alfonso de leon DYEHOUSE WORKER-C Work Phone: Start: 07-22-2025 Blood count smear mc rscp w/mnl difrntl wbc count Alfonso Laith DYEHOUSE WORKER-C Work Phone: Start: 07-22-2025 Estimated creatinine clearance Alfonso Laith DYEHOUSE WORKER-C Work Phone: Start: 07-22-2025 Mean corpuscular hem oglobin concentration determination Alfonso Laith DYEHOUSE WORKER-C Work Phone: Start: 07-22-2025 Nucleated red blood cell count procedure Alfonso Laith DYEHOUSE WORKER-C Work Phone: Start: 07-22-2025 Platelet mean volume determination Alfonso Ozuna DYEHOUSE WORKER-C Work Phone: Start: 07-19-2025 Plain chest X-ray Alfonso Ozuna DYEHOUSE WORKER-C Work Phone: Start: 07-19-2025 Carbon dioxide measu rement, partial pressure Alfonso Ozuna DYEHOUSE WORKER-C Work Phone: Start: 07-19-2025 Gases blood o2 satur ation only direct erik Alfonso Ozuna DYEHOUSE WORKER-C Work Phone: Start: 07-19-2025 Measurement of parti al pressure of oxygen in blood Alfonso Ozuna DYEHOUSE WORKER-C Work Phone: Start: 07-19-2025 Oxygen measurement Watson Ozuna DYEHOUSE WORKER-C Work Phone: Start: 07-19-2025 Oxygen saturation measurement Alfonso Ozuna DYEHOUSE WORKER-C Work Phone: Start: 07-18-2025 Hepatitis A virus an tibody, IgM type Alfonso Laith DYEHOUSE WORKER-C Work Phone: Start: 07-18-2025 Hepatitis B core ant ibody measurement, IgM type Alfonso Laith DYEHOUSE WORKER-C Work Phone: Start: 07-18-2025 Hepatitis C antibody measurement Alfonso Laith DYEHOUSE WORKER-C Work Phone: Start: 07-18-2025 Serum inorganic phos phate measurement Alfonso Laith DYEHOUSE WORKER-C Work Phone: Start: 07-17-2025 Plain chest X-ray Alfonso Ozuna DYEHOUSE WORKER-C Work Phone: Start: 07-16-2025 Bacterial nucleic acid assay Alfonso Laith DYEHOUSE WORKER-C Work Phone: Start: 07-16-2025 Blood culture Alfonso grijalva DYEHOUSE WORKER-C Work Phone: Start: 07-16-2025 Gram stain microscopy D mariusz Ozuna DYEHOUSE WORKER-C Work Phone: Start: 07-16-2025 Legionella pneumophi la antigen assay Alfonso Ozuna DYEHOUSE WORKER-C Work Phone: Start: 07-16-2025 Nucleic acid assay Watson Ozuna DYEHOUSE WORKER-C Work Phone: Start: 07-16-2025 Respiratory microbia l culture Alfonso Ozuna DYEHOUSE WORKER-C Work Phone: Start: 07-16-2025 End: 07-16-2025 Streptococcus pneumoniae antigen assay Alfonso Ozuna DYEHOUSE WORKER-C Work Phone: Start: 07-16-2025 Urine culture Alfonso Barclay is DYEHOUSE WORKER-C Work Phone: Start: 07-16-2025 Alfonso Rm s DYEHOUSE WORKER-C Work Phone: Start: 07-16-2025 Plain chest X-ray Alfonso Ozuna DYEHOUSE WORKER-C Work Phone: Start: 07-16-2025 Assay of lactate Alfonso Ozuna DYEHOUSE WORKER-C Work Phone: Start: 07-16-2025 Lactic acid measurement Alfonso Laith DYEHOUSE WORKER-C Work Phone: Start: 07-16-2025 Urine microscopy: red cells Alfonso Ozuna DYEHOUSE WORKER-C Work Phone: Start: 07-16-2025 Urnls dip stick/tabl et reagent auto microscopy Alfonso Ozuna DYEHOUSE WORKER-C Work Phone: Start: 07-16-2025 CT of abdomen and pe lvis without contrast Alfonso Ozuna DYEHOUSE WORKER-C Work Phone: Start: 07-16-2025 Assay of triglycerides Alfonso Ozuna DYEHOUSE WORKER-C Work Phone: Start: 07-16-2025 Total cholesterol:HD L ratio measurement Alfonso Ozuna DYEHOUSE WORKER-C Work Phone: Start: 07-16-2025 Triglycerides measurement Alfonso Laith DYEHOUSE WORKER-C Work Phone: Start: 07-16-2025 CT angiography of ch est with contrast Alfonso Ozuna DYEHOUSE WORKER-C Work Phone: Start: 07-16-2025 CT of head without contrast Alfonso KOHLI Work Phone: Start: 06-16-2025 Urinalysis ALFONSO [place] Comment on above: Result Comment: URIN ALYSIS Performed By: [id number] ####[facility],[address] [place] [id number] Start: 11-04-2024 Urinalysis ALFONSO [place] Comment on above: Result Comment: URIN ALYSIS Performed By: [id number] ####[facility],[address] [place] [id number] Start: 09-04-2023 Echocardiography JHONNY VALENCIA MD Start: [...] dated 06/16/21 H/O: hysterectomy Alfonso de leon DYEHOUSE WORKER-C Work Phone: History of percutane ous transluminal coronary angioplasty JHONNY VALENCIA MD Plan of Treatment Date Care Activity Detail Author Start: 2029 RSV High Risk: (Elderly (60+) or Population) (1 - 1-dose 75+ series) RSV High Risk: (Elderly (60+) or Population) (1 - 1-dose 75+ series) [facility] Start: 07-26-2025 Patient discharge [facility] Start: 07-25-2025 Referral to network admin [facility] Start: 07-25-2025 [facility] Start: 07-24-2025 Referral to gastroenterology service [facility] Start: 07-23-2025 Care planning and problem solving actions [facility] Start: 07-23-2025 Inhalation therapy procedure [facility] Start: 07-22-2025 Referral to service [facility] Start: 07-22-2025 Palliative care [facility] Start: 07-21-2025 End: 07-22-2025 [facility] Start: 07-21-2025 Oxygen therapy [facility] Start: 07-21-2025 Incentive spirometry [facility] Start: 07-21-2025 Speech therapy assessment [facility] Start: 07-21-2025 Referral for physical therapy [facility] Start: 07-21-2025 Referral to occupational therapist [facility] Start: 07-20-2025 [facility] Start: 07-18-2025 End: 07-19-2025 [facility] Start: 07-18-2025 Following clinical pathway protocol [facility] Start: 07-17-2025 End: 07-18-2025 [facility] Start: 07-17-2025 Referral to service [facility] Start: 07-16-2025 End: 07-17-2025 [facility] Start: 07-16-2025 Methicillin resistant Staphylococcus aureus screening test [facility] Start: 07-16-2025 Following clinical pathway protocol [facility] Start: 07-16-2025 Cardiac monitoring [facility] Start: 07-16-2025 Care regimes management [facility] Start: 07-16-2025 Catheterization of vein [facility] Start: 07-16-2025 Consultation [facility] Start: 07-16-2025 Continuous pulse oximetry [facility] Start: 07-16-2025 Notification of physician [facility] Start: 07-16-2025 Vital signs measurements [facility] Start: 07-16-2025 Verification routine [facility] Start: 07-16-2025 Admission procedure [facility] Start: 07-16-2025 Patient referral to dietitian [facility] Start: 10-03-2024 End: 10-03-2025 CBC W Auto Differential panel - Blood CBC and Auto Differential Lab Routine 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, unspecified vessel or lesion type (Multi) Expected: 10/03/2024 (Approximate), Expires: 10/03/2025 [facility] Work Phone: Comment on above: Expected: 10/03/2024 (Approximate), Expi res: 10/03/2025 Start: 10-03-2024 End: 10-03-2025 Comprehensive metabolic 2000 panel - Serum or Plasma Comprehensive Metabolic Panel Lab Routine Primary hypertension Expected: 10/03/2024 (Approximate), Expires: 10/03/2025 [facility] Work Phone: Comment on above: Expected: 10/03/2024 (Approximate), Expi res: 10/03/2025 Start: 10-03-2024 End: 10-03-2025 Lipid 1996 panel - Serum or Plasma Lipid Panel Lab Routine Health maintenance examination Expected: 10/03/2024 (Approximate), Expires: 10/03/2025 [facility] Work Phone: Comment on above: Expected: 10/03/2024 (Approximate), Expi res: 10/03/2025 Start: 10-03-2024 End: 10-03-2025 TSH with reflex to Free T4 if abnormal TSH with reflex to Free T4 if abnormal Lab Routine Health maintenance examination Expected: 10/03/2024 (Approximate), Expires: 10/03/2025 [facility] Work Phone: Comment on above: Expected: 10/03/2024 (Approximate), Expi res: 10/03/2025 Start: 10-03-2024 End: 10-03-2025 Heart Transthoracic Transthoracic Echo (TTE) Complete Echocardiography Routine Primary hypertension Congestive heart failure, unspecified HF chronicity, unspecified heart failure type (Multi) 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, unspecified vessel or lesion type (Multi) Expected: 10/03/2024, Expires: 10/03/2025 [facility] Work Phone: Comment on above: Expected: 10/03/2024, Expires: Start: 09-18-2024 End: 09-18-2024 Patient encounter procedure 09/18/2024 11:30 AM EST Office Visit [facility] [address] [place] [id number] Elvin Blanc PA-C [address] [facility] [place] [address] [facility] Start: 06-23-2024 COVID-19 Vaccine ( season) COVID-19 Vaccine ( season) [facility] Start: 06-23-2024 Influenza vaccination Influenza Vaccine (#1) [facility] Start: 09-18-2023 End: 09-18-2024 CBC panel - Blood by Automated count CBC Lab Routine Chronic obstructive pulmonary disease, unspecified COPD type (CMS/HCC) 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, unspecified vessel or lesion type (CMS/HCC) Primary hypertension Congestive heart failure, unspecified HF chronicity, unspecified heart failure type (CMS/HCC) Expected: 09/18/2023 (Approximate), Expires: 09/18/2024 [facility] Service Area Work Phone: Comment on above: Expected: 09/18/2023 (Approximate), Expi res: 09/18/2024 Start: 09-18-2023 End: 09-18-2024 Comprehensive metabolic 2000 panel - Serum or Plasma Comprehensive Metabolic Panel Lab Routine Chronic obstructive pulmonary disease, unspecified COPD type (CMS/HCC) 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, unspecified vessel or lesion type (CMS/HCC) Primary hypertension Congestive heart failure, unspecified HF chronicity, unspecified heart failure type (CMS/HCC) Expected: 09/18/2023 (Approximate), Expires: 09/18/2024 [facility] Work Phone: Comment on above: Expected: 09/18/2023 (Approximate), Expi res: 09/18/2024 Start: 09-18-2023 End: 09-18-2024 Lipid 1996 panel - Serum or Plasma Lipid Panel Lab Routine Chronic obstructive pulmonary disease, unspecified COPD type (CMS/HCC) 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, unspecified vessel or lesion type (CMS/HCC) Primary hypertension Congestive heart failure, unspecified HF chronicity, unspecified heart failure type (CMS/HCC) Expected: 09/18/2023 (Approximate), Expires: 09/18/2024 [facility] Work Phone: Comment on above: Expected: 09/18/2023 (Approximate), Expi res: 09/18/2024 Start: 09-18-2023 End: 09-18-2024 TSH with reflex to Free T4 if abnormal TSH with reflex to Free T4 if abnormal Lab Routine Chronic obstructive pulmonary disease, unspecified COPD type (CMS/HCC) 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, unspecified vessel or lesion type (CMS/HCC) Primary hypertension Congestive heart failure, unspecified HF chronicity, unspecified heart failure type (CMS/HCC) Expected: 09/18/2023 (Approximate), Expires: 09/18/2024 [facility] Work Phone: Comment on above: Expected: 09/18/2023 (Approximate), Expi res: 09/18/2024 Start: 06-23-2023 Influenza vaccination Influenza Vaccine (#1) [facility] Start: 12-06-2021 COVID-19 Vaccine (2 - Moderna series) COVID-19 Vaccine (2 - Moderna series) [facility] Start: 04-17-2017 End: 04-17-2017 Appointment Appointment [employer] Work Phone: Start: 01-26-2017 End: 01-26-2017 CT Ldct scan for lung cancer screening CT Ldct scan for lung cancer screening [employer] [facility] [employer] Work Phone: Start: 01-26-2017 End: 01-26-2017 DMB DMB [employer] [facility] [employer] Work Phone: Start: 01-26-2017 End: 01-26-2017 Follow Up Appt 6 weeks Follow Up Appt 6 weeks [facility] Phone: Start: 01-26-2017 End: 01-26-2017 Pulmonary Function Test - complete Pulmonary Function Test - complete [facility] [employer] Work Phone: Start: 01-26-2017 End: 01-26-2017 Pulmonary stress test/simple Pulmonary stress testing; simple (eg, 6-minute walk) [employer] [facility] [employer] Work Phone: Start: 01-12-2017 End: 04-03-2017 Cardiac Rehab Cardiac Re[facility] [address] [place], [address] [facility] [employer] Work Phone: Start: 01-12-2017 End: 01-12-2017 Cardiovascular stress test using treadmill Treadmill stress test (no imaging) [facility] [employer] Work Phone: Start: 01-12-2017 End: 03-24-2017 Electrocardiogram, complete EKG (In office) [facility] [employer] Work Phone: Start: 01-12-2017 End: 01-12-2017 Follow Up Appt 3 months Follow Up Appt 3 months [facility] [employer] Work Phone: Start: 01-12-2017 End: 01-12-2017 MMM MMM [facility] [employer] Work Phone: Start: 02-23-2004 Zoster Vaccines (1 of 2) Zoster Vaccines (1 of 2) [facility] Start: 1994 Screening for malignant neoplasm of breast Mammogram [facility] Start: 02-23-1976 DTaP/Tdap/Td Vaccines (1 - Tdap) DTaP/Tdap/Td Vaccines (1 - Tdap) [facility] Start: 02-23-1972 Hepatitis C screening Hepatitis C Screening [facility] Start: 1954 Lipid panel Lipid Panel [facility] Start: 1954 Medicare Annual Wellness Visit Medicare Annual Wellness Visit (AWV) [facility] Start: 1954 Screening for malignant neoplasm of colon [facility] Start: 1954 Screening for osteoporosis Bone Density Scan [facility] Anion gap in Serum o r Plasma [facility] Anion gap in Serum o r Plasma [facility] Anion gap in Serum o r Plasma [facility] Anion gap in Serum o r Plasma [facility] Anion gap in Serum o r Plasma [facility] Anion gap in Serum o r Plasma [facility] Anion gap in Serum o r Plasma [facility] BUN/Creatinine ratio [facility] BUN/Creatinine ratio [facility] BUN/Creatinine ratio [facility] BUN/Creatinine ratio [facility] BUN/Creatinine ratio [facility] BUN/Creatinine ratio [facility] BUN/Creatinine ratio [facility] Calcium [Mass/volume ] in Serum or Plasma [facility] Calcium [Mass/volume ] in Serum or Plasma [facility] Calcium [Mass/volume ] in Serum or Plasma [facility] Calcium [Mass/volume ] in Serum or Plasma [facility] Calcium [Mass/volume ] in Serum or Plasma [facility] Calcium [Mass/volume ] in Serum or Plasma [facility] Calcium [Mass/volume ] in Serum or Plasma [facility] Carbon dioxide, tota l [Moles/volume] in Central venous blood [facility] Carbon dioxide, tota l [Moles/volume] in Central venous blood [facility] Carbon dioxide, tota l [Moles/volume] in Central venous blood [facility] Carbon dioxide, tota l [Moles/volume] in Central venous blood [facility] Carbon dioxide, tota l [Moles/volume] in Central venous blood [facility] Carbon dioxide, tota l [Moles/volume] in Central venous blood [facility] Carbon dioxide, tota l [Moles/volume] in Central venous blood [facility] Creatinine [Mass/vol ume] in Serum or Plasma [facility] Creatinine [Mass/vol ume] in Serum or Plasma [facility] Creatinine [Mass/vol ume] in Serum or Plasma [facility] Creatinine [Mass/vol ume] in Serum or Plasma [facility] Creatinine [Mass/vol ume] in Serum or Plasma [facility] Creatinine [Mass/vol ume] in Serum or Plasma [facility] Creatinine [Mass/vol ume] in Serum or Plasma [facility] Erythrocyte mean corpuscular volume determination [facility] Erythrocyte mean corpuscular volume determination [facility] Erythrocyte mean corpuscular volume determination [facility] Erythrocyte mean corpuscular volume determination [facility] Erythrocyte mean corpuscular volume determination [facility] Erythrocyte mean corpuscular volume determination [facility] Erythrocyte mean corpuscular volume determination [facility] Glucose [Mass/volume ] in Serum or Plasma [facility] Glucose [Mass/volume ] in Serum or Plasma [facility] Glucose [Mass/volume ] in Serum or Plasma [facility] Glucose [Mass/volume ] in Serum or Plasma [facility] Glucose [Mass/volume ] in Serum or Plasma [facility] Glucose [Mass/volume ] in Serum or Plasma [facility] Glucose [Mass/volume ] in Serum or Plasma [facility] Hematocrit [Volume Fraction] of Blood [facility] Hematocrit [Volume Fraction] of Blood [facility] Hematocrit [Volume Fraction] of Blood [facility] Hematocrit [Volume Fraction] of Blood [facility] Hematocrit [Volume Fraction] of Blood [facility] Hematocrit [Volume Fraction] of Blood [facility] Hematocrit [Volume Fraction] of Blood [facility] Hemoglobin [Mass/vol ume] in Blood [facility] Hemoglobin [Mass/vol ume] in Blood [facility] Hemoglobin [Mass/vol ume] in Blood [facility] Hemoglobin [Mass/vol ume] in Blood [facility] Hemoglobin [Mass/vol ume] in Blood [facility] Hemoglobin [Mass/vol ume] in Blood [facility] Hemoglobin [Mass/vol ume] in Blood [facility] Leukocytes [#/volume ] in Blood [facility] Leukocytes [#/volume ] in Blood [facility] Leukocytes [#/volume ] in Blood [facility] Leukocytes [#/volume ] in Blood [facility] Leukocytes [#/volume ] in Blood [facility] Leukocytes [#/volume ] in Blood [facility] Leukocytes [#/volume ] in Blood [facility] Mean corpuscular hemoglobin concentration determination [facility] Mean corpuscular hemoglobin concentration determination [facility] Mean corpuscular hemoglobin concentration determination [facility] Mean corpuscular hemoglobin concentration determination [facility] Mean corpuscular hemoglobin concentration determination [facility] Mean corpuscular hemoglobin concentration determination [facility] Mean corpuscular hemoglobin concentration determination [facility] Mean corpuscular hemoglobin determination [facility] Mean corpuscular hemoglobin determination [facility] Mean corpuscular hemoglobin determination [facility] Mean corpuscular hemoglobin determination [facility] Mean corpuscular hemoglobin determination [facility] Mean corpuscular hemoglobin determination [facility] Mean corpuscular hemoglobin determination [facility] Measurement of renal function [facility] Measurement of renal function [facility] Measurement of renal function [facility] Measurement of renal function [facility] Measurement of renal function [facility] Measurement of renal function [facility] Measurement of renal function [facility] Neutrophil count [facility] Neutrophil count [facility] Neutrophil count [facility] Neutrophil count [facility] Neutrophil count [facility] Neutrophil count [facility] Neutrophil count [facility] Neutrophil percent differential count [facility] Neutrophil percent differential count [facility] Neutrophil percent differential count [facility] Neutrophil percent differential count [facility] Neutrophil percent differential count [facility] Neutrophil percent differential count [facility] Neutrophil percent differential count [facility] Patient Education [facility] Work Phone: Platelets [#/volume] in Blood [facility] Platelets [#/volume] in Blood [facility] Platelets [#/volume] in Blood [facility] Platelets [#/volume] in Blood [facility] Platelets [#/volume] in Blood [facility] Platelets [#/volume] in Blood [facility] Platelets [#/volume] in Blood [facility] Potassium measurement [facility] Potassium measurement [facility] Potassium measurement [facility] Potassium measurement [facility] Potassium measurement [facility] Potassium measurement [facility] Potassium measurement [facility] Red blood cell count [facility] Red blood cell count [facility] Red blood cell count [facility] Red blood cell count [facility] Red blood cell count [facility] Red blood cell count [facility] Red blood cell count [facility] Red cell distributio n width determination [facility] Red cell distributio n width determination [facility] Red cell distributio n width determination [facility] Red cell distributio n width determination [facility] Red cell distributio n width determination [facility] Red cell distributio n width determination [facility] Red cell distributio n width determination [facility] Serum chloride measurement [facility] Serum chloride measurement [facility] Serum chloride measurement [facility] Serum chloride measurement [facility] Serum chloride measurement [facility] Serum chloride measurement [facility] Serum chloride measurement [facility] Sodium measurement [facility] Sodium measurement [facility] Sodium measurement [facility] Sodium measurement [facility] Sodium measurement [facility] Sodium measurement [facility] Sodium measurement [facility] Urea nitrogen [Mass/volume] in Serum or Plasma [facility] Urea nitrogen [Mass/volume] in Serum or Plasma [facility] Urea nitrogen [Mass/volume] in Serum or Plasma [facility] Urea nitrogen [Mass/volume] in Serum or Plasma [facility] Urea nitrogen [Mass/volume] in Serum or Plasma [facility] Urea nitrogen [Mass/volume] in Serum or Plasma [facility] Urea nitrogen [Mass/volume] in Serum or Plasma [facility] Immunizations Immunization Date Immunization Notes Care Provider [facility] 11-09-2024 Seasonal trivalent influenza vaccine, adjuvanted, preservative free JHONNY VALENCIA MD [facility] 10-11-2021 SARS-CoV-2 (COVID-19 ) [id number] vaccine JHONNY VALENCIA MD [facility] 11-05-2020 pneumococcal conjuga te vaccine, [address] [facility] 11-05-2020 influenza virus vacc ine, unspecified formulation Elvin Blanc PA-C Work Phone: [facility] 09-23-2019 pneumococcal polysaccharide vaccine, 23 valent JHONNY VALENCIA MD [facility] Payers Date Payer Category Payer Self-pay [id number] 2025 Private Health Insurance [id number] 2024 Private Health Insurance [id number] 2024 Medicare supplementa l policy (as second payer) AARP [id number] 2024 Unknown [id number] 2024 Medicare (Managed Care) [employer] [place] D[employer] VALUE PLAN [id number] 2024 Medicare [id number] 2023 Medicare [id number] 2023 Medicare [id number] 2023 Unknown [id number] 2023 Unknown [employer] [facility] [employer] [facility] [id number] 2023-Present [address] [place] [address] [id number] .[id number] 1954 Unknown [id number] 2.16.840.1.236810.3.579.2 .627 1954 Unknown [id number] 2.16.840.1.714699.3.579.2 .627 1954 Unknown [id number] 2.16.840.1.632303.3.579.2 .627 1954 Unknown [id number] 2.16.840.1.836621.3.579.2 .1244 1954 Unknown [id number] 2.16.840.1.464766.3.579.2 .651 1954 Unknown [id number] 2.16.840.1.226317.3.579.2 .651 1954 Unknown [id number] 2.16.840.1.885820.3.579.2 .651 1954 Unknown [id number] 2.16.840.1.402671.3.579.2 .651 1954 Unknown [id number] 2.16.840.1.423345.3.579.2 .651 1954 Unknown [id number] 2.16.840.1.054162.3.579.2 .651 1954 Unknown [id number] 2.16.840.1.221051.3.579.2 .651 1954 Unknown [id number] 2.16.840.1.514840.3.579.2 .651 1954 Unknown [id number] 2.16.840.1.699891.3.579.2 .65 1954 Unknown [id number] 2.16.840.1.585970.3.579.2 .65 1954 Unknown [id number] 2.16.840.1.450339.3.579.2 .651 Unknown [id number] 2.16840.1.529255.3.579.2 .462 Unknown [id number] 2.16840.1.562839.3.579.2 .462 Unknown [id number] 2.16840.1.119997.3.579.2 .462 Unknown [id number] 2.840.1.647150.3.579.2 .462 Unknown [id number] 2.16840.1.157040.3.579.2 .462 Unknown [id number] 2.16840.1.466276.3.579.2 .462 Unknown [id number] 2.16840.1.626740.3.579.2 .462 Unknown [id number] 2.16840.1.309631.3.579.2 .462 Unknown [id number] 2.16840.1.740435.3.579.2 .462 Unknown [id number] 2.16.840.1.311272.3.579.2 .462 Unknown [id number] 2.16.840.1.075185.3.579.2 .462 Unknown [id number] 2.16.840.1.873628.3.579.2 .462 Unknown [id number] 2.16.840.1.375040.3.579.2 .462 Unknown [id number] 2.16840.1.519439.3.579.2 .462 Unknown [id number] 2.16.840.1.066253.3.579.2 .462 Unknown [id number] 2.16.840.1.466047.3.579.2 .462 Unknown [id number] 2.16.840.1.621107.3.579.2 .462 Unknown [id number] 2.16.840.1.407563.3.579.2 .462 Unknown [id number] 2.16.840.1.304509.3.579.2 .462 Unknown [id number] 2.16.840.1.348901.3.579.2 .462 Unknown [id number] 2.16.840.1.422342.3.579.2 .462 Unknown [id number] 2.16.840.1.441022.3.579.2 .462 Social History Date Type Detail Facility Tobacco smoking status [facility] Start: 09-18-2023 End: 07-21-2025 Tobacco smoking status SDIS Smokes tobacco daily [facility] Work Phone: History of tobacco use Cigarette Smoker [facility] Work Phone: Start: 09-18-2023 Tobacco use and exposure Smokeless tobacco non-user [facility] Work Phone: Start: 09-18-2023 End: 10-03-2024 Alcohol intake Lifetime non-drinker (finding) [facility] Work Phone: Start: 09-18-2023 History of Social function [facility] Work Phone: Start: 09-18-2023 Tobacco use panel [facility] Work Phone: Start: 1955 Sex Assigned At Not on file [facility] Work Phone: Start: 09-08-2023 End: 10-03-2024 Exposure to SARS-CoV-2 (event) Not sure [facility] Start: 2024 Tobacco smoking status Light tobacco smoker (finding) [facility] Tobacco smoking status Heavy tobacco smoker (finding) [facility] Start: 06-18-2011 Sex Female (finding) [facility] Start: 1955 Sex Assigned At Female [facility] Goals Date Patient Goal Desired Activity /State Functional Status Date Assessment Result Facility 07-26-2025 Functional status Ambulates [facility] Work Phone: 07-23-2025 Functional status Chair [facility] Work Phone: 11-09-2024 Functional Status Room check performed [facility] 11-09-2024 Functional Status [facility] 11-09-2024 Functional Status [facility] 11-09-2024 Functional Status 3am-7am [facility] 11-09-2024 Functional Status [facility] 11-09-2024 Functional Status Independent [facility] 11-08-2024 Functional Status Activity Josué tance Independent [facility] 11-08-2024 Functional Status [facility] 11-08-2024 Functional Status Dinner Percent 100 [facility] 11-08-2024 Functional Status [facility] 11-08-2024 Functional Status bilateral knee high removed/off [facility] 11-07-2024 Functional Status [facility] 11-06-2024 Functional Status Min A [facility] 11-05-2024 Functional Status Special Call D evice Unable to use call device [facility] 11-05-2024 Functional Status [facility] 11-05-2024 Functional Status [facility] 11-05-2024 Functional Status NPO Status Maintained [facility] 11-05-2024 Functional Status Single level home [facility] 11-05-2024 Functional Status [facility] 11-05-2024 Functional Status [facility] 11-04-2024 Functional Status Sensory Deficits None [facility] 09-06-2023 Functional Status Room check performed [facility] 09-05-2023 Functional Status [facility] 09-05-2023 Functional Status Done [facility] 09-05-2023 Functional Status 90 [facility] 09-05-2023 Functional Status [facility] 09-04-2023 Functional Status Single level home [facility] 09-04-2023 Functional Status [facility] 09-04-2023 Functional Status Transparent silicone dr essing [facility] 09-04-2023 Functional Status [facility] 09-04-2023 Functional Status Ambulation Up with assi stance [facility] 09-03-2023 Functional Status [facility] 09-03-2023 Functional Status [facility] 09-03-2023 Functional Status [facility] 09-03-2023 Functional Status [facility] 09-03-2023 Functional Status [facility] 09-03-2023 Functional Status Maintained [facility] 09-03-2023 Functional Status [facility] 09-03-2023 Functional Status [facility] Mental Status Date Assessment Result Facility 07-26-2025 Cognitive function Voice/Name [facility] Work Phone: 07-23-2025 Cognitive function Voice/Name [facility] Work Phone: 11-09-2024 Mental Status [facility] 11-08-2024 Mental Status [facility] 11-07-2024 Mental Status [facility] 09-06-2023 Mental Status [facility]ed x [facility] 09-05-2023 Mental Status [facility] Clinical Notes 09-02-2023 to 07-26-2025 Note Date & Type Note Facility 07-26-2025 Discharge summary Note Date/Time July 26, 2025 12:44pm [facility] Medical Records Department [address] [place] [address] [facility] MR#: [id number] Acct: [id number] Name: ZABRINA [facility]SU Rep #:[id number] : 1955 70 From: Renee Encarnacion MD PCP: SEUN Alvarez Status:ADM IN Certification of patient admission REQUIRED AT TIME OF ADMISSION. I CERTIFY THAT POST-HOSPITAL ECF SERVICES ARE REQUIRED TO BE GIVEN ON AN IN-PATIENT BASIS BECAUSE OF THE ABOVE NAMED PATIENT'S NEED FOR SENIOR LIVING CARE ON A CONTINUING BASIS FOR THE [...] Patient now agreeable to going to a detention. Case management on board.She did get precert [...] Lakisha Dunn; Apple Carvalho; Marcos Alfredo; Mark aGrrido; Nathan Bill; Eleazar Valle; Jack Vo; Reid [...] 75 mg PO DAILY OXYGEN - Supplemental ([facility] INFORMATIONAL USE ONLY) Patient Comments: 2 LPM at all times Discontinued spironolactone 25 mg tablet 25 mg PO DAILY Referrals / Follow Up: Alfonso Ozuna NP, NP-C [Primary Care Provider, [facility]] - Within 1 Week Adriana Wiggins NP-C [Med Staff - [facility] Prof, Pulmonology] - 08/26/25 1:15 pm Disposition Disposition (needs filled in before D/C Order can be placed): [facility] (2) Pneumonia Qualifiers: Pneumonia type: due to unspecified organism Laterality: bilateral Lung location: unspecified part of lung Qualified Code(s): J18.9 - Pneumonia, unspecified organism 07/26/25 1244 <Electronically signed by Renee Encarnacion MD> Cosigner Signature (if applicable): CC: [employer]YE[employer] WORKER-C Alfonso Ozuna; [employer]YE[employer] WORKER-C Earline Camargo; [employer] WORKER-C Apple Carvalho; [employer]YE[employer] WORKER-C Analy Davis; Dr. Mark Garrido MD; Dr. [...] MD; SHEILA Ellington; Danish Crawford DO ~ [facility] Work Phone: 1(477) 474-569610-04-2025 Discharge summary Author Renee Wilson [facility] Note Date/Time July 26, 2025 4: 01pm [facility] Medical Records Department [address] [place] [address] Discharge Summary 07/26/25 1244 MR#: [id number] Acct: [id number] Name: ZABRINA [facility]SU Rep #:[id number] : 1955 70 From: Renee Encarnacion MD PCP: SEUN Alvarez Status:DIS IN Location: [place] [address] Providers Date of Admission: 07/16/25 Date of Discharge: 07/26/25 Primary Care Physician: SEUN Alvarez Consultations 07/16/25 07:56 Consult: Inspector And Tester / Pulmonary Medicine Routine Consulting Provider: Intensivists/Pulmonary [...] Notification: Verbal Reason For Visit: AE COPD, [id number] RESP FAILURE Diagnosis Discharge Diagnosis (1) Acute [...] Patient now agreeable to going to a detention. Case management on board.She did get precert [...] PO DAILY heart 07/17/25 OXYGEN - Supplemental ([facility] INFORMATIONAL USE ONLY) COPD 07/18/25 amlodipine [...] on her metoprolol. She was discharged to custodial facility on 07/26/2025. She is follow-up with [...] % (Auto) 59.4, Lymph % (Auto) 27.0, [place] % (Auto) 9.7, Eos % (Auto) 0.9, [...] disease of the thoracic aorta. Reading Location: [id number] D/C Instructions Discharge Activity: Return to Normal [...] Alonso Mcknight; Emmett Brown; Tess Dietrich; Coleen eTjada; Ramon Mckeon; Davon Mcguire; Catia Mercer; Mau [...] 75 mg PO DAILY OXYGEN - Supplemental ([facility] INFORMATIONAL USE ONLY) Patient Comments: 2 LPM at all times Discontinued spironolactone 25 mg tablet 25 mg PO DAILY Referrals / Follow Up: Alfonso Ozuna NP DYEHOUSE WORKER-C [Primary Care Provider, [facility]] - Within 1 Week Adriana Wiggins NP-C [Med Staff - [facility], Pulmonology] - 08/26/25 1:15 pm Disposition Disposition (needs filled in before D/C Order can be placed): [facility] Charges/Coding Visit Charges Inpatient E&M: 08016 Disch Hosp >30min 07/26/25 1719 <Electronically signed by Renee Encarnacion MD> Cosigner Signature (if applicable): CC: SEUN Ozuna; Dr. Renee Encarnacion MD~ Signed [facility] Work Phone: 1([phone]) 925-998410-04-2025 Hospital Discharge instructionsAdditional Instructions Date of Discharge: 07/26/25[facility] Work Phone: 1(118) 914-295010-04-2025 [facility]10-03-2025 Progress note [facility] Note Date/Time July 25, 2025 6: 48pm [facility] Medical Records Department [address] [place] [address] Progress Note 07/25/25 1515 MR#: [id number] Acct: [id number] Name: ZABRINA HSU Rep #:[id number] : 1955 70 From: Renee Encarnacion MD PCP: SEUN Alvarez Status:ADM IN Location: [place] [address] Subjective Subjective Patient seen and examined with her nurse by her bedside. She was lying comfortably in bed and had no active complaints. She had an uneventful night. Review of systems otherwise negative. She did get pre-CERT today and plan was to discharge her, but she became tachycardic with her HR going up to the 130 [id number] with movement. Discharge therefore canceled.s Objective Data [...] % (Auto) 60.9, Lymph % (Auto) 25.5, [place] % (Auto) 10.5 H, Eos % (Auto) [...] Patient now agreeable to going to a detention. Case management on board.She did get precert today, but has remained tachycardic with HR going up to the 140s. Charges/Coding Visit Charges Inpatient E&M: 55724 Subs Hosp L2 07/25/25 1848 <Electronically signed by Renee Encarnacion MD> Renee Encarnacion MD Cosigner Signature (if applicable): CC: ~ Signed [facility] Work Phone: 1(252) 348-724110-03-2025 Radiology Diagnostic study [facility]10-02-2025 Progress note Author Renee [facility] Note Date/Time July 24, 2025 5: 26pm [facility] Medical Records Department [address] [place] [address] Progress Note 07/24/25 1712 MR#: [id number] Acct: [id number] Name: ZABRINA HSU Rep #:[id number] : 1955 70 From: Renee Encarnacion MD PCP: SEUN Alvarez Status:ADM IN Location: [place] [address] Subjective Subjective Patient seen and examined. She [...] % (Auto) 60.9, Lymph % (Auto) 26.7, [place] % (Auto) 10.0, Eos % (Auto) 0.6, [...] Patient now agreeable to going to a detention. Case management on board. Charges/Coding Visit Charges Inpatient E&M: 56800 Subs Hosp L2 07/24/25 1726 <Electronically signed by Renee Encarnacion MD> Renee Encarnacion MD Cosigner Signature (if applicable): CC: ~ Signed [facility] Work Phone: 1(375) 815-671810-01-2025 Progress note Author [facility]e [facility] Note Date/Time July 23, 2025 5: 12pm [facility] Medical Records Department [address] [place] [address] Progress Note 07/23/25 1212 MR#: [id number] Acct: [id number] Name: ZABRINA HSU Rep #:[id number] : [...] % (Auto) 67.5, Lymph % (Auto)17.3 L, [place] % (Auto) 13.0 H, Eos % (Auto) [...] to PCU Charges/Coding Visit Charges Inpatient E&M: 59518 Subs Hosp L2 07/23/25 1712 <Electronically signed by Renee Encarnacion MD> Renee Encarnaicon MD Cosigner Signature (if applicable): CC: ~ Signed [facility] Work Phone: 1(180) 558-170610-01-2025 Progress note Author Eleazar Valle [facility] Note Date/Time July 23, 2025 8: 40am [facility] Medical Records Department [address] [place] [address] Progress Note - Inspector And Tester 07/23/25 0738 MR#: [id number] Acct: [id number] Name: ZABRINA HSU Rep #:[id number] : [...] the patient. This note was generated with AtTask dictation software. It may contain incorrectwords, spelling, [...] % (Auto) 67.5, Lymph % (Auto)17.3 L, [place] % (Auto) 13.0 H, Eos % (Auto) [...] Physician: Jack Zuniga Performed By: [facility] Chest X-Ray 07/16/25 09:05 IMPRESSION: Tubes and lines in position. There interstitial infiltrates in the perihilar region bilaterally and in the left upper lung. Reading Location: [facility] Chest X-Ray 07/17/25 05:10 IMPRESSION: Tubes and lines in position. There are perihilar infiltrates in the right and left, improved. Reading Location: [facility] Rhythm Strip Rhythm Strip: Sinus Tach [...] affect normal Charges/Coding Visit Charges Inpatient E&M: 36780 Subs Hosp L2 07/23/25 0840 <Electronically signed by Eleazar Valle DO> Cosigner Signature (if applicable): CC: ~ Signed [facility] Work Phone: 1(872) 291-302009-30-2025 Progress note Author Renee Encarnacion [facility] Note Date/Time July 22, 2025 6:37pm [facility] Medical Records Department [address] [place] [address] Progress Note 07/22/25 1112 MR#: [id number] Acct: [id number] Name: ZABRINA HSU Rep #:[id number] : [...] 84.7 H, Lymph % (Auto) 8.4 L, [place] % (Auto) 4.1, Eos % (Auto) 0.0, [...] prophylaxis: Lovenox Charges/Coding Visit Charges Inpatient E&M: 25621 Subs Hosp L2 07/22/25 1217 <Electronically signed by Renee Encarnacion MD> Renee [...] Signature (if applicable): Date cc: ~* Signed [facility] Work Phone: 1(978) 172-556209-30-2025 Consult note Author Apple Monique [facility] Note Date/Time July 22, 2025 1:59pm [facility] Medical Records Department [address] [place] [address] Consultation - Palliative Care 07/22/25 1215 MR#: [id number] Acct: [id number] Name: ZABRINA HSU Rep #:[id number] : 1955 70 From: Apple KOHLI PCP: SEUN Alvarez Status:ADM IN Location: ICU ICU01-1 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 Charges/Coding Palliative Care Palliative Care: 22929 New Pt Consult 80+ min HPI Current [...] as clinical picture evolves. 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 Ms. Hsu was noted [...] a Healthcare Power No 07/16/25 07:58 of Dispensing Operator? Do You Want Additional Declined 07/16/25 07:58 Information on Advanced Directives or Healthcare Proxy/DPOA comments: Patient states that they do have legal paperworkand that her , her would be her decision-maker if she is unable to make decisions for herself. Psychosocial/Spiritual Information Living situation/Marital status: Spoke spoke with and 16-year-old grandson. Geographic location: [place] Supports: Family Yazidism/Grazyna or spiritual preference: Restorationism Prior functional status: [...] 84.7 H, Lymph % (Auto) 8.4 L, [place] % (Auto) 4.1, Eos % (Auto) 0.0, [...] a result of this Palliative Care Encounter: [[id number], [id number] ] minutes were spent in total for [...] care conversations as clinical picture evolves. 07/22/25 3326 <Electronically signed by Apple KOHLI> Cosigner Signature (if applicable): CC: SEUN Ozuna~ Signed [facility] Work Phone: 1(459) 195-550509-30-2025 Procedure [facility] 07-22-2025 Procedure [facility]09-30-2025 Progress note Author Eleazar Valle [facility] Note Date/Time July 22, 2025 8:48am [facility] Medical Records Department [address] [place] [address] Progress Note - Inspector And Tester 07/22/25 0843 MR#: [id number] Acct: [id number] Name: ZABRINA HSU Rep #:[id number] : [...] of diet. This note was generated with AtTask dictation software. It may contain incorrectwords, spelling, [...] 84.7 H, Lymph % (Auto) 8.4 L, [place] % (Auto) 4.1, Eos % (Auto) 0.0, [...] in the left upper lung. Reading Location: [facility] Chest X-Ray 07/17/25 05:10 IMPRESSION: Tubes and lines in position. There are perihilar infiltrates in the right and left, improved. Reading Location: [facility] Physical Exam Const alert, oriented x3 [...] affect normal Charges/Coding Visit Charges Inpatient E&M: 31150 Subs Hosp L3 07/22/25 0848 <Electronically signed by Eleazar Valle DO> Cosigner Signature (if applicable): CC: ~ Signed [facility] Work Phone: [phone] Progress note Author Earline Camargo [facility] Note Date/Time July 21, 2025 9:09pm [facility] Medical Records Department [address] [place] [address] Progress Note - Hospitalist 07/21/252058 MR#: [id number] Acct: [id number] Name: ZABRINA HSU Rep #:[id number] : [...] 0.33 07/21/252108 <Electronically signed by Earline Camargo DYEHOUSE WORKERAaronC> Cosigner Signature (if applicable): CC: ~ Signed [facility] Work Phone: [phone] 401-417109-29-2025 Progress note Author Renee Alysha [facility] Note Date/Time July 21, 2025 5:28pm [facility] Medical Records Department [address] [place] [address] Progress Note 07/21/25 1406 MR#: [id number] Acct: [id number] Name: ZABRINA HSU Rep #:[id number] : [...] 83.2 H, Lymph % (Auto) 8.8 L, [place] % (Auto) 5.8, Eos % (Auto) 0.1, [...] prophylaxis: Lovenox Charges/Coding Visit Charges Inpatient E&M: 65763 Subs Hosp L2 07/21/25 1728 <Electronically signed by Renee Encarnacion MD> Renee Encarnacion MD Cosigner Signature (if applicable): CC: ~ Signed [facility] Work Phone: [phone]) 251-787109-29-2025 Progress note Author Eleazar Valle [facility] Note Date/Time July 21, 2025 10:38am [facility] Medical Records Department [address] [place] [address] [place] [address] Progress Note - Inspector And Tester 07/21/25 0734 MR#: [id number] Acct: [id number] Name: ZABRINA HSU Rep #:[id number] : [...] 83.2 H, Lymph % (Auto) 8.8 L, [place] % (Auto) 5.8, Eos % (Auto) 0.1, [...] in the left upper lung. Reading Location: [facility] Chest X-Ray 07/17/25 05:10 IMPRESSION: Tubes and lines in position. There are perihilar infiltrates in the right and left, improved. Reading Location: [facility] Physical Exam Const Constitutional Narrative: The [...] follow simple commands. Charges/Coding Procedures Hospitalists Procedures: 86173 Critical Care 1st Hr 07/21/25 1038 <Electronically signed by Eleazar Valle DO> Cosigner Signature (if applicable): CC: ~ Signed [facility] Work Phone: [phone] 308-130709-29-2025 Consult note Author Mateo Gonzales [facility] Note Date/Time July 21, 2025 7:34am [facility] Medical Records Department [address] [place] [address] Pharmacokinetic/Renal -Consult 07/20/25 1137 MR#: [id number] Acct: [id number] Name: ZABRINA HSU Rep #:[id number] : [...] Date Eleazar Valle DO CC: ~ Signed [facility] Work Phone: [phone] Progress note Author Gerard Santos [facility] Note Date/Time July 20, 2025 11:57am [facility] Medical Records Department [address] [place] [address] Progress Note - Hospitalist 07/20/25 0836 MR#: [id number] Acct: [id number] Name: ZABRINA HUS Rep #:[id number] : 1955 70 From: [...] (Auto) 89.3 H, Lymph % (Auto)5.2 L, [place] % (Auto) 4.5, Eos % (Auto) 0.0, [...] mmHg @ 86% on * ventilator * [facility] for vent mgmt * 2/2 to AECOPD, [...] IV daily. Charges/Coding Visit Charges Inpatient E&M: 79418 Subs Hosp L2 07/20/25 1157 <Electronically signed by Gerard Santos DO> Cosigner Signature (if applicable): CC: ~ Signed [facility] Work Phone: [phone]) [phone] Progress note Author Reid Murillo [facility] Note Date/Time July 20, 2025 9:07am [facility] Medical Records Department [address] [facility] [place] [address] Progress Note - Inspector And Tester 07/20/25 09 MR#: [id number] Acct: [id number] Name: ZABRINA HSU Rep #:[id number] : 1955 70 From: eRid Murillo MD PCP: SEUN Alvarez Status:ADM IN [...] 07/16/25 07:59 07/20/25 06:02 IV 0 mls/hr .[id number] PRN Infusion Saline Flush Sodium Chloride 250 mls @ 15 mls/hr 07/16/25 07:59 IV .[id number] PRN Additional IVPB Infusion Fentanyl 100 mls [...] Af 1.2 Blake Liquid GT Not Given .[id number] TIMOTHY Propofol 1,000 mg in 100 mls @ 3.06 mls/hr 07/18/25 01:15 07/20/25 00:41 Diprivan CONT INF Not Given .Q12H TIMOT[facility] Protocol 10 MCG/KG/MIN Vancomycin HCl 1,250 mg/ 275 mls @ 167 mls/hr 07/18/25 12:00 07/19/25 13:10 Sodium Chloride IV Infused Q24H TIMOTHY Infusion Dexmedetomidine HCl 1,000 mcg/ 250 mls @ 6.375 mls/hr 07/19/25 22:00 07/20/2507:00 Sodium Chloride CONT INF 1.5 mcg/kg/hr .[id number] TIMOTHY 19.1 mls/hr Protocol Titration 0.5 MCG/KG/HR [...] 10:00 Quetiapine 25 Mg Tablet GT BID [facility] Protocol Sodium Chloride 10 - 40 ml [...] (Auto) 89.3 H, Lymph % (Auto)5.2 L, [place] % (Auto) 4.5, Eos % (Auto) 0.0, [...] Cosigner Signature (if applicable): CC: ~ Signed [facility] Work Phone: [phone] Progress note Author Gerard Santos [facility] Note Date/Time July 19, 2025 12:35pm [facility] Medical Records Department [address] [place] [address] Progress Note - Hospitalist 07/19/25 0758 MR#: [id number] Acct: [id number] Name: ZABRINA HSU Rep #:[id number] : [...] 90.1 H, Lymph % (Auto) 4.7 L, [place] % (Auto) 4.3, Eos % (Auto) 0.1, [...] detailed. Improvement in perihilar densities. Reading Location[facility] Physical Exam Const Constitutional Narrative: intubated. sedated. [...] IV daily. Charges/Coding Visit Charges Inpatient E&M: 65009 Subs Hosp L2 07/19/25 123 <Electronically signed by Gerard Santos DO> Cosigner Signature (if applicable): CC: ~ Signed [facility] Work Phone: [phone]) 814-982009-27-2025 Progress note Author Reid Murillo [facility] Note Date/Time July 19, 2025 11:55am [facility] Medical Records Department [address] [place] [address] Progress Note - Inspector And Tester 07/19/25 1144 MR#: [id number] Acct: [id number] Name: ZABRINA HSU Rep #:[id number] : [...] 07/16/25 07:59 07/19/25 07:27 IV 0 mls/hr .[id number] PRN Infusion Saline Flush Sodium Chloride 250 mls @ 15 mls/hr 07/16/25 07:59 IV .[id number] PRN Additional IVPB Infusion Fentanyl 100 mls [...] 11:29 Sodium Chloride CONT INF 0.9 mcg/kg/hr .[id number] TIMOTHY 11.4 mls/hr Protocol Titration 0.5 MCG/KG/HR Enteral Nutritional Formula 1,000 mls @ 45 mls/hr 07/17/25 10:05 07/19/25 09:30 Vital Af 1.2 Blake Liquid GT 45 mls/hr .[id number] TIMOTHY Administration Propofol 1,000 mg in 100 [...] 100 Unit/Ml Insuln.Pen SC Not Given Q6H [facility] Protocol Methylprednisolone Sodium Succinate 60 mg 07/16/25 [...] 90.1 H, Lymph % (Auto) 4.7 L, [place] % (Auto) 4.3, Eos % (Auto) 0.1, [...] detailed. Improvement in perihilar densities. Reading Location: [facility] Assessment and Plan . Assessment and plan: [facility] Medical Records Department [address] [place] [address] Progress Note - Inspector And Tester 07/18/25 0739 MR#: [id number] Acct: [id number] Name: ZABRINA HSU Rep #: [id number] : 1955 70 From: Eleazar Valle DO [...] Cosigner Signature (if applicable): CC: ~ Signed [facility] Work Phone: [phone] Radiology Diagnostic study [facility]09-26-2025 Progress note Author Gerard Santos [facility] Note Date/Time July 18, 2025 12:30pm [facility] Medical Records Department [address] [place] [address] Progress Note - Hospitalist 07/18/2507 MR#: [id number] Acct: [id number] Name: DAVEZABRINA L Rep #:[id number] : [...] RDW Coeff of Shivam 15.1 H, Plt Kmgct378, MPV 9.7, Immature Gran % (Auto) 0.400, Neut % (Auto) 84.1 H, Lymph % (Auto)9.1 L, [place] % (Auto) 6.3, Eos % (Auto) 0.0, [...] 88.5 H, Lymph % (Auto) 5.9 L, [place] % (Auto) 4.7, Eos % (Auto) 0.0, [...] IV daily. Charges/Coding Visit Charges Inpatient E&M: 71471 Subs Hosp L2 07/18/25 1230 <Electronically signed by Gerard Santos DO> Cosigner Signature (if applicable): CC: ~ Signed [facility] Work Phone: [phone] Consult note Author Noelle Yañez [facility] Note Date/Time July 18, 2025 12:13pm [facility] Medical Records Department [address] [facility] [place] [address] Pharmacokinetic/Renal -Consult 07/18/25 1128 MR#: [id number] Acct: [id number] Name: ZABRINA HSU Rep #:[id number] : [...] (if applicable): Date Eleazar Valle: ~ Signed [facility] Work Phone: [phone] Progress note Author Eleazar Valle [facility] Note Date/Time July 18, 2025 9:00am [facility] Medical Records Department [address] [place] [address] Progress Note - Inspector And Tester 07/18/25 0739 MR#: [id number] Acct: [id number] Name: ZABRINA HSU Rep #:[id number] : [...] RDW Coeff of Shivam 15.1 H, Plt [id number], MPV 9.7, Immature Gran % (Auto) 0.400, Neut % (Auto) 84.1 H, Lymph % (Auto)9.1 L, [place] % (Auto) 6.3, Eos % (Auto) 0.0, [...] 88.5 H, Lymph % (Auto) 5.9 L, [place] % (Auto) 4.7, Eos % (Auto) 0.0, [...] in the left upper lung. Reading Location: [facility] Chest X-Ray 07/17/25 05:10 IMPRESSION: Tubes and lines in position. There are perihilar infiltrates in the right and left, improved. Reading Location: [facility] Physical Exam Const Constitutional Narrative: The [...] sedated on vent Charges/Coding Procedures Hospitalists Procedures: 34869 Critical Care 1st Hr 07/18/25 0900 <Electronically signed by Eleazar Valle DO> Cosigner Signature (if applicable): CC: ~ Signed [facility] Work Phone: 1([phone]) 349-553209-25-2025 Progress note Author Gerard Santos [facility] Note Date/Time July 17, 2025 12:53pm [facility] Medical Records Department [address] [place] [address] Progress Note - Hospitalist 07/17/25 07 MR#: [id number] Acct: [id number] Name: ZABRINA HSU Rep #:[id number] : [...] Clarity Clear, Urine pH 7.0, Ur Specific [place] 1.005, Urine Protein 30 H, Urine Glucose [...] Diffuse atherosclerosis Degenerative bony changes Reading Location: [id number] Chest X-Ray 07/16/25 09:05 IMPRESSION: Tubes and lines in position. There interstitial infiltrates in the perihilar region bilaterally and in the left upper lung. Reading Location: [facility] Chest X-Ray 07/17/25 05:10 IMPRESSION: Tubes and lines in position. There are perihilar infiltrates in the right and left, improved. [facility] Physical Exam Const Constitutional Narrative: agitated [...] at bedside. Charges/Coding Visit Charges Inpatient E&M: 08542 Subs Hosp L2 07/17/25 1253 <Electronically signed by Gerard Santos DO> Cosigner Signature (if applicable): CC: ~ Signed [facility] Work Phone: [phone] 260-364409-25-2025 Progress note Author Eleazar Valle [facility] Note Date/Time July 17, 2025 10:00am [facility] Medical Records Department [address] [place] [address] Progress Note - Inspector And Tester 07/17/25 0737 MR#: [id number] Acct: [id number] Name: ZABRINA HSU Rep #:[id number] : [...] Clarity Clear, Urine pH 7.0, Ur Specific [place] 1.005, Urine Protein 30 H, Urine Glucose [...] in the left upper lung. Reading Location: [facility] Chest X-Ray 07/17/25 05:10 IMPRESSION: Tubes and lines in position. There are perihilar infiltrates in the right and left, improved. Reading Location: [facility] Physical Exam Const Constitutional Narrative: The [...] sedated on vent Charges/Coding Procedures Hospitalists Procedures: 02107 Critical Care 1st Hr 07/17/25 1000 <Electronically signed by Eleazar Valle DO> Cosigner Signature (if applicable): CC: ~ Signed [facility] Work Phone: 1([phone]) 275-678409-25-2025 Radiology Diagnostic study [facility]09-24-2025 History and physical note Author Jack Haile [facility] Note Date/Time July 16, 2025 7:05pm [facility] Medical Records Department [address] [place] [address] H&P Exam - Hospitalist 07/16/25 0413 MR#: [id number] Acct: [id number] Name: ZABRINA HSU Rep #:[id number] : [...] history of hysterectomy and OAwho presents to [facility] ER complaining of SOB. Ms. Hsu was [...] to extend beyond 2 midnights. 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 Home Medications [...] 30.6 L, Lymph % (Auto) 56.5 H, [place] % (Auto) 6.4, Eos % (Auto) 2.7, [...] 368 H, Calcium 8.5, Total Bilirubin 0.34, ZPG535 H, ALT 118 H, Alkaline Phosphatase 163 [...] Sharif Blood Gas Notified Time 04:00:19 Imaging [facility] Imaging Services [address] [place], [place] [address] Brain/Head without Contrast MR#: [id number] Acct: [id number] Name: ZABRINA HSU Rep #: [id number] : 1955 F 70 From: Shimon Santos MD PCP: SEUN Alvarez Status: REG ER Study: Brain/Head without Contrast Date of Exam: 07/16/25 Exam# [id number] Ordering Dr: Bernardo Sharif DO EXAM: NONCONTRAST [...] to exclude an acute component. Reading Location: [facility] CC: SEUN Ozuna; Dr. Bernardo Sharif DO ~ Magnetic Resonance Imaging Coordinator: Signed ----- [facility] Imaging Services [address] [place] [address] CTA Chest W/WO Contrast MR#: [id number] Acct: [id number] Name: ZABRINA HSU Rep #: [id number] : 1955 F 70 From: Aleksandr Levine MD PCP: SEUN Alvarez Status: REG ER Study: CTA Chest W/WO Contrast Date of Exam: 07/16/25 Exam# [id number] Ordering Dr: Bernardo Sharif DO PROCEDURE: CTA [...] position No suspicious adenopathy Degenerative bony changes Dillon Alert: ET tube tip in the SADAF The critical findings in the findings and impression above were relayed directlyby me by telephone to Bernardo Sharif on 07/16/2025 at 6:56 am with readback verification. Reading Location: [id number] CC: SEUN Ozuna; Dr. Bernardo Sharif DO ~ Magnetic Resonance Imaging Coordinator: Signed Assessment & Plan Assessment/Plan (1) COPD [...] responsive hypotension Charges/Coding Visit Charges Inpatient E&M: 92105 Init Hosp L3 07/16/251904 <Electronically signed by Jack Zuniga DO> Cosigner Signature (if applicable): CC: SEUN Ozuna; Dr. Jack Zuniga DO~ Signed [facility] Work Phone: 1(610) 849-335609-24-2025 Progress note Author Gerard Santos [facility] Note Date/Time July 16, 2025 12:12pm [facility] Medical Records Department [address] [place] [address] Progress Note - Hospitalist 07/16/25 1200 MR#: [id number] Acct: [id number] Name: ZABRINA HUS Rep #:[id number] : 1955 70 From: [...] 30.6 L, Lymph % (Auto) 56.5 H, [place] % (Auto) 6.4, Eos % (Auto) 2.7, [...] AST 158 H, ALT 118 H, Alkaline Emmkehjpdyf231 H, Total Creatine Kinase 126, Troponin T [...] Clarity Clear, Urine pH 7.0, Ur Specific [place] 1.005, Urine Protein 30 H, Urine Glucose [...] position No suspicious adenopathy Degenerative bony changes Dillon Alert: ET tube tip in the SADAF The critical findings in the findings and impression above were relayed directlyby me by telephone to Bernardo Sharif on 07/16/2025 at 6:56 am with readback verification. Reading Location: [id number] Echocardiogram 07/16/25 06:31 Interpretation Summary Mild concentric [...] Diffuse atherosclerosis Degenerative bony changes Reading Location: [id number] Chest X-Ray 07/16/25 09:05 IMPRESSION: Tubes and [...] Cosigner Signature (if applicable): CC: ~ Signed [facility] Work Phone: 1(265) 362-494909-24-2025 Consult note Author Noelle Yañez [facility] Note Date/Time July 16, 2025 10:25am [facility] Medical Records Department [address] [place] [address] Pharmacokinetic/Renal -Consult 07/16/25 09 MR#: [id number] Acct: [id number] Name: ZABRINA HSU Rep #:[id number] : [...] Date Eleazar Valle DO CC: ~ Signed [facility] Work Phone: 1(542) 570-511809-24-2025 Consult note Author Eleazar Valle [facility] Note Date/Time July 16, 2025 10:10am [facility] Medical Records Department [address] [place] [address] Consultation - Inspector And Tester 07/16/25811 MR#: [id number] Acct: [id number] Name: DAVEZABRINA L Rep #:[id number] : [...] antimicrobials and Lasix. [facility] for further management. 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 Home Medications [...] 30.6 L, Lymph % (Auto) 56.5 H, [place] % (Auto) 6.4, Eos % (Auto) 2.7, [...] AST 158 H, ALT 118 H, Alkaline Gnocmfvryzx179 H, Total Creatine Kinase 126, Troponin T [...] position No suspicious adenopathy Degenerative bony changes Dillon Alert: ET tube tip in the SADAF The critical findings in the findings and impression above were relayed directlyby me by telephone to Bernardo Sharif on 07/16/2025 at 6:56 am with readback verification. Reading Location: [facility] Abdomen/Pelvis CT 07/16/25 06:40 IMPRESSION: No suspicious solid organ abnormality, there is atrophy of the right kidney compared to the left but no obstructive uropathy or suspicious solid renal lesion. Retained stool throughout the colon which may be impacted No free intraperitoneal fluid, air, or suspicious adenopathy NG tube tip in the body of the stomach Diffuse atherosclerosis Degenerative bony changes Reading Location: [facility] Charges/Coding Procedures Hospitalists Procedures: 99257 Critical Care 1st Hr 07/16/25 1010 <Electronically signed by Eleazar Valle DO> Cosigner Signature (if applicable): CC: ESUN Ozuna~ Signed [facility] Work Phone: 1(173) 602-223309-24-2025 Radiology Diagnostic study [facility]09-24-2025 Discharge summary Author Bernardo Sharif [facility] Note Date/Time July 16, 2025 7:03am [facility] Medical Records Department [address] [place] [address] Emergency Department Summary 07/16/25 MR#: [id number] Acct: [id number] Name: DAVEZABRINA L Rep #:[id number] : 1955 70 From: Bernardo Small PCP: SEUN Alvarez Status:REG ER Location: ED HPI History of Present Illness Chief Complaint: Shortness of Breath PFSH PFSH Medical History Anxiety 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 Patient was admitted to [facility] from 06/16/2025 until 06/25/2025 for acute on chronic respiratory failure hypoxia. Acute pulmonary edema, NSTEMI, COPD exacerbation. This time patient suffered respiratory failure required mechanical ventilation. Factors affecting care: As per HPI Social determinants of health: none History obtained from others: EMS Consults: Internal Medicine (Dr. Haile) [facility] Narrative: The patient was initially hypertensive [...] Patient is appropriate for admission here at [facility] to intensive care unit. Dr. Hess added [...] to ICU This note was generated with AtTask dictation software. It may contain incorrectwords, spelling, [...] 90 3RF Primary Care Provider: Alfonso Ozuna DYEHOUSE WORKER Referrals: Alfonso Ozuna NP, DYEHOUSE WORKER-C [Primary Care Provider, Family Practice] Print Language: Chadian What to do if you have Problems For any increased pain, shortness of breath, bleeding, nausea or vomiting, chestpain, or any unexpected problems, contact your Primary Care Provider. Call [facility] ([phone]) or report to the closest Emergency Room. Call 911 if necessary. 07/16/25 0703 <Electronically signed by Bernardo Sharif DO> Cosigner Signature (if applicable): CC: DYEHOUSE WORKERAaronC Alfonso Ozuna ~ Signed [facility] Work Phone: 1(778) 207-107109-24-2025 Evaluation note* Diagnosis Onset Date Resolution Status [...] COPD exacerbation chronic Septemb er 2024 6:21am [facility] Work Phone: 1(508) 787-636309-24-2025 NoteAcceptable Specimen? Acceptable Specimen(Evaluation not needed) Gram Stain 2+ White Blood Cells Rare Epithelial cells Rare Gram positive cocciWOhioHealth Grant Medical CenterComment on above:Performed By: #### M100.2400, M100.2000, M100.678, M100.2200 ####[facility] [address] [place], [address](184) 102-477309-24-2025 Radiology Diagnostic study [facility]09-24-2025 Radiology Diagnostic study [facility]09-24-2025 Radiology Diagnostic study note [facility]09-24-2025 History and physical note Author Jack Haile [facility] Note Date/Time July 16, 2025 7:05pm [facility] Medical Records Department [address] [place] [address] H&P Exam - Hospitalist 07/16/25 0413 MR#: [id number] Acct: [id number] Name: ZABRINA HSU Rep #:[id number] : [...] history of hysterectomy and OAwho presents to [facility] ER complaining of SOB. Ms. Hsu was [...] to extend beyond 2 midnights. 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 Home Medications [...] 30.6 L, Lymph % (Auto) 56.5 H, [place] % (Auto) 6.4, Eos % (Auto) 2.7, [...] 368 H, Calcium 8.5, Total Bilirubin 0.34, FSU256 H, ALT 118 H, Alkaline Phosphatase 163 [...] Sharif Blood Gas Notified Time 04:00:19 Imaging [facility] Imaging Services [address] [place] [address] Brain/Head without Contrast MR#: [id number] Acct: [id number] Name: ZABRINA HSU Rep #: [id number] : 1955 F 70 From: Shimon Santos MD PCP: SEUN Alvarez Status: REG ER Study: Brain/Head without Contrast Date of Exam: 07/16/25 Exam# [id number] Ordering Dr: Bernardo Sharif DO EXAM: NONCONTRAST [...] SEUN Ozuna; Dr. Bernardo Sharif DO ~ Magnetic Resonance Imaging Coordinator: Signed ----- [facility] Imaging Services [address] [place], [place] [address] CTA Chest W/WO Contrast MR#: [id number] Acct: [id number] Name: ZABRINA HSU Rep #: [id number] : 1955 F 70 From: Aleksandr Levine MD PCP: SEUN Alvarez Status: [facility] Study: CTA Chest W/WO Contrast Date of Exam: 07/16/25 Exam# [id number] Ordering Dr: Bernardo Sharif DO PROCEDURE: CTA [...] position No suspicious adenopathy Degenerative bony changes Dillon Alert: ET tube tip in the SADAF The critical findings in the findings and impression above were relayed directlyby me by telephone to Bernardo Sharif on 07/16/2025 at 6:56 am with readback verification. Reading Location: [id number] CC: DYEHOUSE WORKERNuvia Ozuna; Dr. Bernardo Sharif DO ~ Magnetic Resonance Imaging Coordinator: Signed Assessment & Plan Assessment/Plan (1) COPD [...] responsive hypotension Charges/Coding Visit Charges Inpatient E&M: 53881 Init Hosp L3 07/16/251904 <Electronically signed by Jack Zuniga DO> Cosigner Signature (if applicable): CC: SEUN Ozuna; Dr. Jack Zuniga DO~ Signed [facility] Work Phone: 1(985) 907-440509-03-2025 Cardiology Progress note Subjective Patient seen and [...] Complete by Nursing Assessment/Plan CAD s/p PCI ([facility] 06/24/2025 -significant LAD disease status post [...] to 35% with wall motion abnormality. Underwent [facility] yesterday showing significant LAD disease with PCI to LAD and moderate disease in LCx, which is recommended to manage medically. Patient tolerated DAPT with aspirin and Plavix. Continue Coreg, Entresto and spironolactone. Okay to be discharged from cardiac standpoint. Digitally Signed by HARSH CEDILLO MD on 06/25/2025 01:[address] [facility] Note Discharge Instructions Thank you for allowing [...] 2 weeks Where:[address] [facility] [place] [address]- Follow Up with [facility] Where:[facility] [address] [place] [address]- Additional Information: Cardiac rehabilitation is a vital part of your recovery and long-term hearthealth following your hospital stay. It is a medically supervised exercise and education program designed to improve your physical fitness, manage heart-related risk factors, and support emotional well-being. A cardiac rehab valve steamer will contact you soon to schedule your follow-up appointment. If you have any questions please call [phone]. Follow Up with [facility], When:Within 1-2 days Additional Information: [facility] has been referred to provide your home care services upon discharge; a nurse will contact you upon your return home to arrange for your start of care; please call with any further questions or concerns. Follow Up with ALFONSO OZUNA When:Within 1-2 days Where:[address] [place] [address]- [phone] Additional Information: Please call the office to [...] Duration: 3 Days Pickup at [facility] New spironolactone (Aldactone 25 mg oral tablet) 1 tab(s) by mouth Once a day with a meal Duration: 90 Days Refills: 3 Pickup at [facility] Changed aspirin (aspirin 81 mg oral delayed release tablet) 1 tab(s) by mouth Every day Duration: 90 Days Pickup at [facility] Changed clopidogrel (Plavix 75 mg oral tablet) 1 tab(s) by mouth Once a day Duration: 90 Days Pickup at [facility] Changed furosemide (Lasix 40 mg oral tablet) 1 tab(s) by mouth Once a day Duration: 90 Days Pickup at [facility] Unchanged albuterol (albuterol MDI (90 mcg/ inh) [...] times a day Pharmacy Information [facility]: [address] [place], [place] [id number] [phone] Please take this list to your next [...] You should not use spironolactone if you Ramah's disease, high levels of potassium in your [...] allergic to it, or if you have: Ramah's disease (an adrenal gland disorder); high levels [...] may report side effects to FDA at 0-731-VCB-7061. What other drugs will affect spironolactone? Using [...] drugs may affect spironolactone, including prescription and hsiq-gwm-xkkkicr medicines, vitamins, and herbal products. Not all [...] to ensure that the information provided by [employer]. ('[employer]') is accurate, up-to-date, and complete, but no guarantee is made to that effect. Drug information contained herein may be time sensitive. [employer] information has been compiled for use by healthcare practitioners and consumers in the [place] and therefore [employer] does not warrant that uses outside of the [place] are appropriate, unless specifically indicated otherwise. [employer] drug information does not endorse drugs, diagnose patients or recommend therapy. [employer] drug information isan informational resource designed to [...] effective or appropriate for any given patient. [facility] does not assume any responsibility for any aspect of healthcare administered with the aid of information [facility] provides. The information contained herein is not intended to cover all possible uses, directions, precautions, warnings, drug interactions, allergic reactions, or adverse effects. If you have questions about the drugs you are taking, check with your doctor, nurse or pharmacist. Copyright 3069-8289 [facility] [employer] Communication. Version: 08.23. Revision Date: 01/04/2020. Education Materials [...] a prescription, and some you can buy ebgx-zex-dxvrbip. Some medicines may contain a drug called [...] and encourage you. Call a phone quitline (2-032-DZFBNOW), reach out to support groups, or work [...] 08/05/2010 Document Revised: 12/27/2019 Document Reviewed: 12/28/2019 Contemporary Analysis Patient Education 2020 Vidimax. HEART CATHETERIZATION/PCI (radial) Discharge Instructions DIET Drink [...] Document Reviewed: 10/10/2014 ExitCare Patient Information 2015 Innov[employer] Med Concepts. This information is not intended to replace advicegiven to you by your health care provider. Make sure you discuss any questions you have with your health care provider. Additional Information VACCINATE! IT SAVES LIVES! Members of the community who have not yet received the COVID-19 vaccine and would like to receive it can visit one of [facility] vaccine clinics. There are many vaccine clinic locations within the [facility]. For locations and available times, please visit https://gettheshot.coronavirus.[place].gov/. It is important to note that some COVID mobile vaccine clinics are held outdoors and may be canceled in rainy or stormy conditions. To learn more about pediatric vaccinations (ages 5-11), we invite you to visit the [facility] webpage. https://www.[facility].org/pages/4250-Vdzdg-Jxtxbvipiqf-Waxncvaiww-Kulcm-Fvo stions.htmlTo learn more about the COVID-19 vaccine, we invite you to visit the CDC website for a list of frequently asked questions.https://www.cdc.gov/coronavirus/2019-ncov/vaccines/faq.html [facility] Patient Portal Access Instructions: Stay connected with your healthcare team and access your personal medical information anytime with the [facility] Patient Portal. Please follow the directions below to create your [facility] account: 1.Access the email account you provided upon registration to the hospital/physician office.2.Look for an invitation email from [facility].3.Open the email and access the invitation link: AcceptInvitation to [facility].4.Fill in the required lr to create your account. To access your account, visit [email or web address]. Click the blue button labeled Access Patient [...] who you will allowto register on the [facility] Patient Portal for access to your information. You can also access the [facility] Patient Portal on the [facility] Anywhere benitez. Simply click on Patient Portal and then log into your account. If you would like to receive a full copy of your medical records, please contact the [facility] Medical Records Department by calling [phone], Monday through Monday between 8 a.m. and [...] Call your local pharmacy or go to http://[email or web address].Vantage Sports/0E7Vj6q to find one close to you.3.Make use of household items: Use cat litter or old coffee grounds to dispose medications if other options arenot available. Mix your drugs with these household products, seal them in an airtight container andthrow it into the garbage. Call [facility]: [phone] to be sure your drugs can be [...] Patient Education Materials Steps to Quit Smoking, Kafy-eg-Ffdf 3- Heart Cath/PCI radial (07/2018)(CUSTOM) Medication Leaflets spironolactone My discharge plan and instructions have been reviewed and explained to me and IDAVE MELODIE Lunderstand my current condition and have read and understand these discharge instructions. I have received a written copy of the plan/instructions. If I have questions, I am aware that I should contact my doctor. Patient/Procedural Nurse Signature: Date/Time: Relationship to Patient: Witness Name/Signature: Date/Time: [id number] Hospital Discharge instructions Patient Education 06/25/2025 12:39:30 Steps to Quit Smoking, Fmeq-an-Ikrd Steps to Quit Smoking Smoking tobacco is [...] a prescription, and some you can buy jino-dsx-zerzqzt. Some medicines may contain a drug called [...] as websites. Examples include QuitGuide from the [employer]utenbergz and smokefree.gov What things can I do to make it easier to quit? Talk to your family and friends. Ask them to support and encourage you. Call a phone quitline (8-292-QXSLNOW), reach out to support groups, or work [...] 08/05/2010 Document Revised: 12/27/2019 Document Reviewed: 12/28/2019 Contemporary Analysis Patient Education 2020 Vidimax. 06/25/2025 12:39:24 3- Heart Cath/PCI radial (07/2018)(CUSTOM) [...] Document Reviewed: 10/10/2014 ExitCare Patient Information 2015 Innov[employer] Med Concepts. This information is not intended to replace advicegiven to you by your health care provider. Make sure you discuss any questions you have with your health care provider. Follow Up Care 06/16/2025 05:21:39 With:LUIS CANCHOLA MD Address: [address] [facility] [address] [facility] [place] [address]- When:Within 2 Week(s) With:[facility] Address: [facility] [address] [address]- When: Unknown Comments:Cardiac rehabilitation is a vital part of your recovery and long-term heart health following your hospital stay. It is a medically supervised exercise and education program designed to improve your physical fitness, manage heart- related risk factors, and support emotional well-being. A cardiac rehab valve steamer will contact you soon to schedule your follow-up appointment. If you have any questions please call [phone]. With:[facility], Address:Unknown When:1-2 days Comments:[facility] has been referred to provide your home care services upon discharge; a nurse will contact you upon your return home to arrange for your start of care; please call with any further questions or concerns. With:ALFONSO OZUNA APRN-[facility] Address: [address] [place] [address] [phone] When:1-2 days Comments:Please call the office to schedule a hospital follow up appointment. [facility] 09-03-2025 Cardiology Progress note Subjective Patient [...] Complete by Nursing Assessment/Plan CAD s/p PCI ([facility] 06/24/2025 -significant LAD disease status post [...] to 35% with wall motion abnormality. Underwent [facility] yesterday showing significant LAD disease with PCI to LAD and moderate disease in LCx, which is recommended to manage medically. Patient tolerated DAPT with aspirin and Plavix. Continue Coreg, Entresto and spironolactone. Okay to be discharged from cardiac standpoint. Digitally Signed by HARSH CEDILLO MD on 06/25/2025 01:[address] [facility] [id number] Discharge summary Date of Service 06/25/2025 13:16:26 [...] with PCP and Cardiology Allergies NKA Procedures [facility] Intubation Consults No qualifying data available. [...] Extremities: No edema, No cyanosis or clubbing MICROSOFT WINDOWS ENGINEER: Alert, No focal deficits identified. Skin: No [...] CANCHOLA MD When:In 2 weeks Where:[address] [facility] [address] [facility] [place] [address]- Follow Up with [facility] Where:[facility] [address] [place] [address]- Additional Information: Cardiac rehabilitation is a vital part of your recovery and long-term hearthealth following your hospital stay. It is a medically supervised exercise and education program designed to improve your physical fitness, manage heart-related risk factors, and support emotional well-being. A cardiac rehab valve steamer will contact you soon to schedule your follow-up appointment. If you have any questions please call [phone]. Follow Up with [facility], When:Within 1-2 days Additional Information: [facility] has been referred to provide your home care services upon discharge; a nurse will contact you upon your return home to arrange for your start of care; please call with any further questions or concerns. Follow Up with ALFONSO OZUNA When:Within 1-2 days Where:[address] [place] [address]- [phone] Additional Information: Please call the office to [...] KENNEDY HAMILTON MD on 06/25/2025 01:[address] [id number] Note Discharge Instructions Thank you for allowing [facility] to assist you with your healthcare needs. The following is importantdischarge information regarding your hospital visit. Your Care Team ALFONSO OZUNA What to do next Follow Up Appointments Follow Up with LUIS CANCHOLA MD When:In 2 weeks Where:[address] [facility] [place] [address]- Follow Up with Cardiac Rehab- [facility] Where:[facility] [address] [place] [address]- Additional Information: Cardiac rehabilitation is a vital part of your recovery and long-term hearthealth following your hospital stay. It is a medically supervised exercise and education program designed to improve your physical fitness, manage heart-related risk factors, and support emotional well-being. A cardiac rehab valve steamer will contact you soon to schedule your follow-up appointment. If you have any questions please call [phone]. Follow Up with [facility], When:Within 1-2 days Additional Information: [facility] has been referred to provide your home care services upon discharge; a nurse will contact you upon your return home to arrange for your start of care; please call with any further questions or concerns. Follow Up with ALFONSO OZUNA When:Within 1-2 days Where:[place] [address]- [phone] Additional Information: Please call the office to [...] Days Refills: 3 Pickup at [facility] Changed aspirin (aspirin 81 mg oral delayed release tablet) 1 tab(s) by mouth Every day Duration: 90 Days Pickup at [facility] Changed clopidogrel (Plavix 75 mg oral tablet) 1 tab(s) by mouth Once a day Duration: 90 Days Pickup at [facility] Changed furosemide (Lasix 40 mg oral tablet) 1 tab(s) by mouth Once a day Duration: 90 Days Pickup at [facility] Unchanged albuterol (albuterol MDI (90 mcg/ inh) [...] times a day Pharmacy Information [facility]: [address] [place], [place] [id number] [phone] Please take this list to your next [...] You should not use spironolactone if you Ramah's disease, high levels of potassium in your [...] allergic to it, or if you have: Ramah's disease (an adrenal gland disorder); high levels [...] may report side effects to FDA at 2-906-SMG-3610. What other drugs will affect spironolactone? Using [...] drugs may affect spironolactone, including prescription and nwoa-uej-hkmatnb medicines, vitamins, and herbal products. Not all [...] to ensure that the information provided by [employer]. ('[employer]') is accurate, up-to-date, and complete, but no guarantee is made to that effect. Drug information contained herein may be time sensitive. [employer] information has been compiled for use by healthcare practitioners and consumers in the [place] and therefore [employer] does not warrant that uses outside of the [place] are appropriate, unless specifically indicated otherwise. [employer] drug information does not endorse drugs, diagnose patients or recommend therapy. [employer] drug information isan informational resource designed to [...] effective or appropriate for any given patient. [employer] does not assume any responsibility for any aspect of healthcare administered with the aid of information [employer] provides. The information contained herein is not intended to cover all possible uses, directions, precautions, warnings, drug interactions, allergic reactions, or adverse effects. If you have questions about the drugs you are taking, check with your doctor, nurse or pharmacist. Copyright 1093-1756 [employer]. Version: .. Revision Date: 01/04/2020. Education Materials [...] a prescription, and some you can buy kpqx-dvj-kndxuvw. Some medicines may contain a drug called [...] as websites. Examples include QuitGuide from the [employer] and smokefree.gov What things can I do to make it easier to quit? Talk to your family and friends. Ask them to support and encourage you. Call a phone quitline (3-806-HVNNNOW), reach out to support groups, or work [...] 08/05/2010 Document Revised: 12/27/2019 Document Reviewed: 12/28/2019 Contemporary Analysis Patient Education 2020 Vidimax. HEART CATHETERIZATION/PCI (radial) Discharge Instructions DIET Drink [...] Document Reviewed: 10/10/2014 ExitCare Patient Information 2015 [employer]. This information is not intended to replace advicegiven to you by your health care provider. Make sure you discuss any questions you have with your health care provider. Additional Information VACCINATE! IT SAVES LIVES! Members of the community who have not yet received the COVID-19 vaccine and would like to receive it can visit one of [facility] vaccine clinics. There are many vaccine clinic locations within the [facility]. For locations and available times, please visit https://gettheshot.coronavirus.[place].gov/. It is important to note that some COVID mobile vaccine clinics are held outdoors and may be canceled in rainy or stormy conditions. To learn more about pediatric vaccinations (ages 5-11), we invite you to visit the [facility] webpage. https://www.[employer]ys.org/pages/1568-Hpkcz-Wrjcfdzafbq-Xdvwwpbrhe-Tyjyp-Xyv stions.htmlTo learn more about the COVID-19 vaccine, we invite you to visit the CDC website for a list of frequently asked questions.https://www.cdc.gov/coronavirus/2019-ncov/vaccines/faq.html [facility] Patient Portal Access Instructions: Stay connected with your healthcare team and access your personal medical information anytime with the [facility] Patient Portal. Please follow the directions below to create your [facility] account: 1.Access the email account you provided upon registration to the hospital/physician office.2.Look for an invitation email from [facility].3.Open the email and access the invitation link: AcceptInvitation to [facility].4.Fill in the required lr to create your account. To access your account, visit [employer] I/iWitnessOneChart. Click the blue button labeled Access Patient [...] who you will allowto register on the [facility] Patient Portal for access to your information. You can also access the [facility] One[facility] Patient Portal on the [place] [employer] benitez. Simply click on Patient Portal and then log into your account. If you would like to receive a full copy of your medical records, please contact the [facility] Medical Records Department by calling [phone], Monday through Monday between 8 a.m. and [...] Call your local pharmacy or go to [email or web address] to find one close to you.3.Make use of household items: Use cat litter or old coffee grounds to dispose medications if other options arenot available. Mix your drugs with these household products, seal them in an airtight container andthrow it into the garbage. Call [facility]: [phone] to be sure your drugs can be [...] Patient Education Materials Steps to Quit Smoking, Nryz-pv-Znfw 3- Heart Cath/PCI radial (07/2018)(CUSTOM) Medication Leaflets spironolactone My discharge plan and instructions have been reviewed and explained to me and I,ZABRINA HSU my current condition and have read and understand these discharge instructions. I have received a written copy of the plan/instructions. If I have questions, I am aware that I should contact my doctor. Patient/Procedural Nurse Signature: Date/Time: Relationship to Patient: Witness Name/Signature: Date/Time: [facility] HospitalUubzfjqm16-07-6109 Note* Exam Date Time Procedure Performing Provider Status 06/24/25 6:43 PM Electrocardiogram - EKG - CV MARY BERNAL MD; Auth (Verified) ECG Final Report SINUS RHYTHM LOW VOLTAGE, EXTREMITY LEADS NONSPECIFIC T ABNRM, ANTEROLATERAL LEADS Electronic Signature: OWEN BERNAL MD 06/25/2025 11:40:06 [facility] HospitalXxpsgclu95-73-3508 Cardiology Progress note Date of Service 06/24/2025 [...] JESUSITA SOARES MD on 06/24/2025 02:[address] [facility] HospitalKlyaxyiw44-55-4927 Cardiology Progress note Date of Service 06/24/25 [facility] Significant LAD disease s/p PCI Aspirin and Plavix Residual Left CRx disease for medical management Digitally Signed by CLAUDE MEADOWS MD on 06/24/2025 03:[address] [facility] HospitalRpengziz60-85-5773 Cardiology Progress note Date of Service 06/24/2025 [...] JESUSITA SOARES MD on 06/24/2025 02:[address] [facility] HospitalGlijasgr46-81-7543 Note Date of Service 06/24/25 Chief Complaint [...] lab service, Stop date 06/24/25 8:05:00 EDT, [id number] .Neutro Absolute, Timed Study (collect at specified time), Blood, Once, Preferred Lab: Other lab service, Stop date 06/24/25 8:05:00 EDT, [id number] APTT, 06/24/25 8:00:00 EDT, Timed Study (collect [...] Midnight, 06/23/25 23:58:00 EDT, Constant Order, For [facility] on Sunday 06/24 NSTEMI (peak troponin [...] systolic; continue losartan and carvedilol. 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 Lipids Rosuvastatin [...] patch 14 mg daily with lozenges PRN. 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 Renal function Cr 1.0, BUN 19, [...] Spent Greater than 35 minutes were spent xmub-rh-pefb with the patient +/- family during this encounter and >50% was spent on counseling and coordination of care. Digitally Signed by PAPI BAXTER MD on 06/24/2025 08:[address] [facility] HospitalXujfxuut31-05-3597 Note Date of Service 06/23/25 Chief Complaint [...] Midnight, 06/22/25 23:58:00 EDT, Constant Order, For [facility] on Monday (06/23/25) NSTEMI (peak hs-troponin [...] mg daily before discharge if hemodynamically stable; intake counselor on sick-day rules and euglycemic DKA [...] recent anti-Xa/aPTT within target prior to transport; field laboratory operator will manage periprocedural anticoagulation dosing. PT recommends [...] Spent Greater than 35 minutes were spent xrom-ug-wefw with the patient +/- family during this encounter and >50% was spent on counseling and coordination of care. Digitally Signed by PAPI BAXTER MD on 06/23/2025 08:[address] [facility] HospitalVfduxtdv92-98-1012 Note Date of Service 06/22/25 Chief Complaint [...] Spent Greater than 35 minutes were spent yadd-bt-lazb with the patient +/- family during this encounter and >50% was spent on counseling and coordination of care. Digitally Signed by PAPI BAXTER MD on 06/22/2025 04:[address] [facility] HospitalSqzvguij14-33-9376 Note. MICRO - Microbiology PROCEDURE: Blood Culture [...] Locations *1: This test was performed at: [address], [facility] , [facility] [id number] Note. MICRO - Microbiology PROCEDURE: Blood Culture [...] Locations *1: This test was performed at: [address], [facility] , [facility] [id number] Note. MICRO - Microbiology PROCEDURE: Blood Culture [...] Locations *1: This test was performed at: [address], [address] [place] [address] [id number] Note. MICRO - Microbiology PROCEDURE: Blood Culture [...] Locations *1: This test was performed at: [address], [address] [place], [place] [id number] Nurse Progress note Patient is alert and oriented 4 but forgetful. She is aware of how to disable bed alarms and was wearing nonslip socks at the time of the incident. The respiratory therapist encountered the patient ambulating unassisted, long-term to the bathroom, tugging on her IV [...] contacted and updated regarding the incident. The rn coronary care unit was also notified via email. Patient was monitored closely following the event. Digitally Signed by Matthieu Blake RN on 06/21/2025 07:[address] [facility] HospitalYuradlne26-01-7802 Cardiology Consult note Date of Service 06/16/2025 [...] right atrial pressure is [address] [facility] 08/2023: SUMMARY: 1. 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 [facility] [id number] Note Date of Service 06/20/2025 ICU Day [...] COPD transfer for pulmonary and hospital At [facility]. Vitals BP 114/67, MAP 83, HR 110, [...] COPD (emphysematous) and transferred to [facility]. Current vent settings FiO2 40%, tidal [...] 240 10^3/mcL 06/17/25 06:47:00 APTT 67.1 seconds [facility] 06/20/25 01:39:00 APTT 52.6 seconds [facility] 06/19/25 17:01:00 APTT 73.6 seconds [facility] 06/19/25 08:44:00 APTT 65.1 seconds [facility] 06/19/25 02:59:00 APTT 68.1 seconds [facility] 06/18/25 19:45:00 APTT 40.6 seconds [facility] 06/18/25 08:41:00 APTT 51.7 seconds [facility] 06/18/25 03:51:00 APTT 46.8 seconds [facility] 06/17/25 20:40:00 APTT 40.2 seconds [facility] 06/17/25 12:38:00 APTT 54.3 seconds [facility] 06/17/25 06:47:00 Glucose Level 116 mg/dL [facility] 06/20/25 02:11:00 Glucose Level 156 mg/dL [facility] 06/19/25 20:49:00 Glucose Level 139 mg/dL [facility] 06/19/25 02:59:00 Glucose Level 145 mg/dL [facility] 06/18/25 03:51:00 Glucose Level 106 mg/dL 06/17/25 06:47:00 Sodium Level 139 mEq/L 06/20/25 02:11:00 Sodium Level 140 mEq/L 06/19/25 20:49:00 Sodium Level 149 mEq/L [facility] 06/19/25 02:59:00 Sodium Level 143 [...] 28 mEq/L 06/17/25 06:47:00 BUN 42 mg/dL [facility] 06/20/25 02:11:00 BUN 39 mg/dL [...] the sections as needed. Philippe Zaragoza M.D., [facility] High degree of medical complexity [...] PHILIPPE ZARAGOZA MD on 06/20/2025 12:[address] [facility] [id number] Note* Exam Date Time Procedure Performing Provider Status 06/19/25 6:40 PM Electrocardiogram - EKG - CV JAIRO LIMA MD; Auth (Verified) ECG Final Report Wandering atrial pacemaker Left ventricular hypertrophy Prolonged QT interval Electronic Signature: JAIRO PÉREZ MD 06/20/2025 16:26:25 [facility] HospitalLjknjmuy97-33-2586 Note Date of Service 06-19-2025 ICU Day [...] COPD transfer for pulmonary and hospital At [facility]. Vitals BP 114/67, MAP 83, HR 110, [...] COPD (emphysematous) and transferred to [facility]. Current vent settings FiO2 40%, tidal [...] 263 10^3/mcL 06/16/25 17:09:00 APTT 73.6 seconds [facility] 06/19/25 08:44:00 APTT 65.1 seconds [facility] 06/19/25 02:59:00 APTT 68.1 seconds [facility] 06/18/25 19:45:00 APTT 40.6 seconds [facility] 06/18/25 08:41:00 APTT 51.7 seconds [facility] 06/18/25 03:51:00 APTT 46.8 seconds [facility] 06/17/25 20:40:00 APTT 40.2 seconds [facility] 06/17/25 12:38:00 APTT 54.3 seconds [facility] 06/17/25 06:47:00 APTT 71.7 seconds [facility] 06/16/25 23:54:00 APTT 33.8 seconds 06/16/25 17:09:00 Protime 14.4 seconds 06/16/25 17:09:00 PT International Ratio 1.2 ratio 06/16/25 17:09:00 Glucose Level 139 mg/dL [facility] 06/19/25 02:59:00 Glucose Level 145 mg/dL [facility] 06/18/25 03:51:00 Glucose Level 106 mg/dL 06/17/25 06:47:00 Sodium Level 149 mEq/L [facility] 06/19/25 02:59:00 Sodium Level 143 [...] the sections as needed. Philippe Zaragoza M.D., [facility] High degree of medical complexity [...] PHILIPPE ZARAGOZA MD on 06/19/2025 01:[address] [facility] HospitalHngdcnuk28-28-5056 Note* Exam Date Time Procedure Performing Provider Status 06/19/25 7:59 AM XR Chest 1 View PARISH AGUIRRE DO; Teofilo [facility] (Verified) [id number] ORIGINAL EXAMINATION: ONE XRAY VIEW OF THE [...] 06/19/2025 8:06:42 AM Ordering Provider: ADRIANA WEAVER [facility] HospitalBgcdcsld06-25-2025 Note* Exam Date Time Procedure Performing Provider Status 06/18/25 11:16 AM Electrocardiogram - EKG - CV JAIRO MARTINS MD; Auth (Verified) ECG Final Report Sinus rhythm Multiple premature complexes, vent & supraven Anterior infarct, age indeterminate Lateral leads are also involved Electronic Signature: JAIRO PÉREZ MD 06/19/2025 16:18:13 [facility] HospitalMbvrepnf83-42-2017 Note. MICRO - Microbiology PROCEDURE: Culture Respiratory [...] Locations *1: This test was performed at: [facility], [address] [place] [address], [address] , [facility]08-27-2025 Note* Exam Date Time Procedure Performing Provider Status 06/18/25 6:44 AM XR Chest 1 View GENARO NO MD; Auth (Verified) [id number] ORIGINAL EXAMINATION: ONE XRAY VIEW OF THE [...] Sign Date: 06/18/2025 7:12:41 AM Ordering Provider: [facility]08-27-2025 Note Date of Service 06-18-2025 ICU [...] COPD transfer for pulmonary and hospital At [facility]. Vitals BP 114/67, MAP 83, HR 110, [...] COPD (emphysematous) and transferred to [facility]. Current vent settings FiO2 40%, tidal [...] 9 10^3/mcL 06/17/25 06:47:00 WBC 12.1 10^3/mcL [facility] 06/16/25 17:09:00 WBC 20.2 10^3/mcL [facility] 06/16/25 10:25:00 Hgb 11 G/dL [...] 297 10^3/mcL 06/16/25 10:25:00 APTT 51.7 seconds [facility] 06/18/25 03:51:00 APTT 46.8 seconds [facility] 06/17/25 20:40:00 APTT 40.2 seconds [facility] 06/17/25 12:38:00 APTT 54.3 seconds [facility] 06/17/25 06:47:00 APTT 71.7 seconds [facility] 06/16/25 23:54:00 APTT 33.8 seconds 06/16/25 17:09:00 Protime 14.4 seconds 06/16/25 17:09:00 PT International Ratio 1.2 ratio 06/16/25 17:09:00 Glucose Level 145 mg/dL [facility] 06/18/25 03:51:00 Glucose Level 106 [...] minutes Critical Care time Philippe Zaragoza M.D., [facility] High degree of medical complexity [...] PHILIPPE ZARAGOZA MD on 06/18/2025 12:[address] [facility] HospitalUknkjfzx12-31-0354 Note* Exam Date Time Procedure Performing Provider Status 06/17/25 6:53 AM XR Chest 1 View GENARO NO MD; Auth (Verified) [id number] ORIGINAL EXAMINATION: ONE XRAY VIEW OF THE [...] Date: 06/17/2025 6:58:17 AM Ordering [facility]: [facility] HospitalVypjmqcl45-64-3249 Note Date of Service 06-17-2025 ICU Day 2 Significant Comorbidities/Current Illness 70-year-old female with history of CAD status post PCI to RCA in , cardiomyopathy (thought to be Takotsubo cardiomyopathy), COPD, bipolar, tobacco use, GERD, anxiety, depression, history of suicide attempt in 2010. Presented to [facility] with COPD exacerbation. developed hypoxic respiratory failure requiring intubation and mechanical ventilation and COPD transfer for pulmonary and hospital At [facility]. Vitals BP 114/67, MAP 83, HR 110, [...] exacerbation of COPD (emphysematous) [facility] Current vent settings FiO2 40%, tidal [...] & SBI 143, RR 31, and tidal [id number]. Minute volume was 5.9. 4-collateral history obtained [...] minutes Critical Care time Philippe Zaragoza M.D., [facility] High degree of medical complexity [...] PHILIPPE ZARAGOZA MD on 06/17/2025 12:[address] [facility] HospitalPfcadagw80-22-4819 Note* Exam Date Time Procedure Performing Provider Status 06/16/25 4:12 PM Electrocardiogram - EKG - CV JAIRO LIMA MD; Auth (Verified) ECG Final Report Sinus rhythm Atrial premature complex Anterior infarct, age indeterminate Prolonged QT interval Electronic Signature: JAIRO PÉREZ MD 06/17/2025 20:33:19 [facility] HospitalLiuueqyi28-73-7165 Pastoral care Progress note Pastoral Care Note [...] by Krystian Adams on 06/16/2025 04:[address] [facility] HospitalObynyady79-88-4798 Cardiology Consult note Date of Service 06/16/2025 [...] right atrial pressure is [address] [facility] 08/2023: SUMMARY: 1. 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 [facility] HospitalHkszcmhi60-73-2599 Evaluation + Plan noteExtracted from: Title:History and [...] minutes Critical Care time Philippe Zaragoza M.D., [facility] High degree of medical complexity noted in this patient with review of external notes and results of tests, ordering of new tests, and an independent review of the patient. I reviewed tests ordered by other physicians and reviewed my assessment with other health care providers. Future Scheduled Tests Laboratory* Basic Metabolic Panel 03/13/25 [facility] 08-25-2025 Note* Exam Date Time Procedure Performing Provider Status 06/16/25 1:35 PM Electrocardiogram - EKG - CV JAIRO LIMA MD; Auth (Verified) ECG Final Report WANDERING ATRIAL PACEMAKER Consider left ventricular hypertrophy Inferior infarct, old Prolonged QT interval Electronic Signature: JAIRO PÉREZ MD 06/17/2025 20:33:08 [facility] HospitalRxbmiicx67-14-0990 Note* Exam Date Time Procedure Performing Provider Status 06/16/25 1:27 PM Echocardiogram, Adult - CV JAIRO BEJARANO MD; Auth (Verified) [facility] HospitalKncepixg60-60-7974 Note. MICRO - Microbiology PROCEDURE: Legionella Urine [...] Locations *1: This test was performed at: [address], [address] , [facility]08-25-2025 Note. MICRO - Microbiology PROCEDURE: Streptococcus Pneumoniae [...] Locations *1: This test was performed at: [address], [address] , [facility]08-25-2025 Note* Exam Date Time Procedure Performing Provider Status 06/16/25 11:30 AM VL Venous US/Doppler Both Legs(for DVT) EMILIO AVILES MD; Auth (Verified) [facility] HospitalMibneusy86-69-8080 Note* Exam Date Time Procedure Performing Provider Status 06/16/25 10:36 AM XR Chest 1 View ARANZA REDDY MD; [facility] (Verified) [id number] ORIGINAL EXAMINATION: ONE XRAY VIEW OF THE [...] 10:44:49 AM Ordering Provider: VANDANA DOS SANTOS [facility] HospitalDzmnnjac27-53-9109 History and physical note Date of Service 06/16/2025 Chief Complaint Transferred from [facility] History of Present Illness This is 70-year-old [...] COPD transfer for pulmonary and hospital At [facility]. Vitals BP 114/67, MAP 83, HR 110, [...] COPD (emphysematous) and transferred to [facility]. Current vent settings FiO2 40%, tidal [...] minutes Critical Care time Philippe Zaragoza M.D., [facility] High degree of medical complexity noted in this patient with review of external notes and results of tests, ordering of new tests, and an independent review of the patient. I reviewed tests ordered by other physicians and reviewed my assessment with other health care providers. 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 [facility] HospitalQrujtmjv63-34-1138 Note. MICRO - Microbiology PROCEDURE: Blood Culture (bacterial) [*1] SOURCE: Blood BODY SITE: COLLECTED DATE/TIME: 11/04/2024 05:15 EST RECEIVED DATE/TIME: 11/04/2024 15:48 EST START DATE/TIME: 11/04/2024 15:49 EST FREE TEXT SOURCE: M/R [id number]; lab [id number]; [id number] FINAL REPORTS Final Report [] Verified Date/Time/Personnel: 11/09/2024 15:59 EST Blood Culture: No Growth at 5 days. PRELIMINARY REPORTS Preliminary Report [] Verified Date/Time/Personnel: 11/04/2024 16:59 EST Culture has been received in lab and is no growth to date. Routine cultures are held for 5 days. Performing Locations *1: This test was performed at: [facility], [address] [place] [address], [phone]- , [facility]01-18-2025 Note. MICRO - Microbiology PROCEDURE: Blood Culture (bacterial) [*1] SOURCE: Blood BODY SITE: COLLECTED DATE/TIME: 11/04/2024 05:45 EST RECEIVED DATE/TIME: 11/04/2024 15:45 EST START DATE/TIME: 11/04/2024 15:46 EST FREE TEXT SOURCE: M/R [id number]; lab [id number]; [id number] FINAL REPORTS Final Report [] Verified Date/Time/Personnel: 11/09/2024 15:59 EST Blood Culture: No Growth at 5 days. PRELIMINARY REPORTS Preliminary Report [] Verified Date/Time/Personnel: 11/04/2024 16:59 EST Culture has been received in lab and is no growth to date. Routine cultures are held for 5 days. Performing Locations *1: This test was performed at: [address] [id number] Note. MICRO - Microbiology PROCEDURE: Blood Culture [...] Locations *1: This test was performed at: [address], [address] [place] [address] [id number] Note. MICRO - Microbiology PROCEDURE: Blood Culture [...] Locations *1: This test was performed at: [facility], [address] [place] [address], [facility]- , [facility]01-18-2025 Discharge summary Date of Service 11/09/2024 Discharge [...] and depression who presented as transfer from [facility] with acute respiratory failure requiring intubation. Initial saturation on 4 L nasal cannula was 70%. Lactic acid was elevated at 4.6. She initially went to ER at [facility] with shortness of breath and wheezing. At the previous hospital patient was thought to have A-fib with RVR and she was started on Cardizem drip, and route patient was in normal sinus rhythm, and in [facility] patient was always in normal sinus rhythm, upon reviewing the EKG that was done in [facility],I do have a suspicion that [...] Up Follow Up with Mahnaz Moore for doctors hospital, report to [phone] When:Within 1-2 days Follow Up with ALFONSO OZUNA When:Within 1-2 days Where:[facility] [place] [address]- [phone] Business (1) Follow Up Appointments Transfer of [...] MERCEDES CARTER MD on 11/09/2024 01:[address] [facility] [id number] Hospital Discharge instructions Patient Education 11/09/2024 10:15:52 [...] breathing. Follow these instructions at home: Take xwgn-syt-asvdjen and prescription medicines only as told by [...] 10/14/2014 Document Revised: 09/21/2018 Document Reviewed: 04/26/2017 Contemporary Analysis Patient Education 2020 Vidimax. Follow Up Care 11/04/2024 07:53:19 With:Mahnaz Moore for skilled care, report to [phone] Address:Unknown When:1-2 days With:ALFONSO OZUNA Address: [address] [place] [address] [phone] Business (1) When:1-[address] [facility] 01-18-2025 Note Discharge Instructions Thank you for allowing [facility] to assist you with your healthcare needs. The following is importantdischarge information regarding your hospital visit. Your Care Team ALFONSO OZUNA BUSINESS DEVELOPMENT DIRECTOR-SCALE MODEL MAKER What to do next Scheduled Follow-Up Appointments Appointment Type When With Where Contact Information [facility] Follow Up 12/06/2024 03:30 PM EST [facility] Appointments Follow Up with Mahnaz Moore for skilled care, report to [phone] When:Within 1-2 days Follow Up with ALFONSO OZUNA When:Within 1-2 days Where:[address] [place] [address] [phone] Business (1) The Following Activity and Diet [...] breathing. Follow these instructions at home: Take jnmf-qih-jmwrnlo and prescription medicines only as told by [...] 10/14/2014 Document Revised: 09/21/2018 Document Reviewed: 04/26/2017 Contemporary Analysis Patient Education 2020 Vidimax. Additional Information VACCINATE! IT SAVES LIVES! Members of the community who have not yet received the COVID-19 vaccine and would like to receive it can visit one of [facility] vaccine clinics. There are many vaccine clinic locations within the [facility]. For locations and available times, please visit [email or web address].gov/. It is important to note that some COVID mobile vaccine clinics are held outdoors and may be canceled in rainy or stormy conditions. To learn more about pediatric vaccinations (ages 5-11), we invite you to visit the [facility] webpage. https://www.[facility].org/pages/6125-Jdwnr-Banorhjgpqn-Oypbdnmodb-Iazuj-Ldu stions.htmlTo learn more about the COVID-19 vaccine, we invite you to visit the CDC website for a list of frequently asked questions.https://www.cdc.gov/coronavirus/2019-ncov/vaccines/faq.html [facility] Patient Portal Access Instructions: Stay connected with your healthcare team and access your personal medical information anytime with the [facility] Patient Portal. Please follow the directions below to create your [facility] account: 1.Access the email account you provided upon registration to the hospital/physician office.2.Look for an invitation email from [facility].3.Open the email and access the invitation link: AcceptInvitation to [facility].4.Fill in the required lr to create your account. To access your account, visit [employer] I/iWitnessOneCrashidt. Click the blue button labeled Access Patient [...] who you will allowto register on the [facility] [employer] Patient Portal for access to your information. You can also access the [facility] Patient Portal on the [facility] Anywhere benitez. Simply click on Patient Portal and then log into your account. If you would like to receive a full copy of your medical records, please contact the [facility] Medical Records Department by calling [phone], Monday through Monday between 8 a.m. and [...] Call your local pharmacy or go to [email or web address] to find one close to you.3.Make use of household items: Use cat litter or old coffee grounds to dispose medications if other options arenot available. Mix your drugs with these household products, seal them in an airtight container andthrow it into the garbage. Call [facility]: [phone] to be sure your drugs can be [...] aware that I should contact my doctor. Patient/Procedural Nurse Signature: Date/Time: Relationship to Patient: Witness Name/Signature: Date/Time: [facility] [id number] Note Discharge Instructions Thank you for allowing [facility] to assist you with your healthcare needs. The following is importantdischarge information regarding your hospital visit. Your Care Team ALFONSO OZUNA APRN-SCALE MODEL MAKER What to do next Scheduled Follow-Up Appointments Appointment Type When With Where [facility] Up 12/06/2024 03:30 PM NORA RUIZ [facility] Confirmed Follow Up Appointments Follow Up with Mahnaz Moore for skilled care, report to [phone] When:Within 1-2 days Follow Up with ALFONSO OZUNA When:Within 1-2 days Where:[address] [place] [address]- [phone] Business (1) The Following Activity and Diet [...] to receive it can visit one of [facility] vaccine clinics. There are many vaccine clinic locations within the [facility]. For locations and available times, please visit [email or web address]/. It is important to note that some COVID mobile vaccine clinics are held outdoors and may be canceled in rainy or stormy conditions. To learn more about pediatric vaccinations (ages 5-11), we invite you to visit the [facility] webpage. https://www.[facility].org/pages/5972-Lyreq-Robzdjhypqj-Cfdcrkrfoa-Bybad-Rzz stions.htmlTo learn more about the COVID-19 vaccine, we invite you to visit the CDC website for a list of frequently asked questions.https://www.cdc.gov/coronavirus/2019-ncov/vaccines/faq.html [facility] [employer] Patient Portal Access Instructions: Stay connected with your healthcare team and access your personal medical information anytime with the [facility] Patient Portal. Please follow the directions below to create your [facility] account: 1.Access the email account you provided upon registration to the hospital/physician office.2.Look for an invitation email from [facility].3.Open the email and access the invitation link: AcceptInvitation to [facility].4.Fill in the required lr to create your account. To access your account, visit [employer] I/MobileTagt. Click the blue button labeled Access Patient Portal and then log in with the username and password that you created in the steps above. You will be able to view your test results, lab results, a summary of your visits, upcoming appointments and more. There is also a convenient messaging option where you can send secure messages to your [employer]. In addition, you will have the ability to download any documents or summaries to your computer and/or send the information securely to a physician. Remember that your healthcare information is confidential, so carefully consider who you will allowto register on the [facility] Patient Portal for access to your information. You can also access the [facility] Patient Portal on the [facility] Anywhere benitez. Simply click on Patient Portal and then log into your account. If you would like to receive a full copy of your medical records, please contact the [facility] Medical Records Department by calling [phone], Monday through Monday between 8 a.m. and [...] Call your local pharmacy or go to [email or web address] to find one close to you.3.Make use of household items: Use cat litter or old coffee grounds to dispose medications if other options arenot available. Mix your drugs with these household products, seal them in an airtight container andthrow it into the garbage. Call [facility]: [phone] to be sure your drugs can be [...] aware that I should contact my doctor. Patient/Procedural Nurse Signature: Date/Time: Relationship to Patient: Witness Name/Signature: Date/Time: [facility] HospitalZcjmfqli57-62-2473 Respiratory therapy Hospital Progress note Respiratory Therapy [...] by DESHAWN Hill on 11/09/2024 07:[address] [facility] HospitalCzrrzqfc06-39-9765 Note Subjective: Patient seen for pneumonia versus [...] 08 06:19)L 54(NOV 07 23:30)70(NOV 08 06:19) BSE893(NOV 08 14:34)L 87(NOV 08 11:03)H 198(NOV 08 [...] MERCEDES CARTER MD on 11/08/2024 03:[address] 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 Initial saturation on 4 L nasal cannula was 70%. Lactic acid was elevated at 4.6. She initially went to ER at [facility] with shortness of breath and wheezing. [...] EMILIO DERAS MD on 11/07/2024 11:[address] [facility] HospitalBjbutcbj15-96-3236 Consult note Date of Service 11/05/2024 Reason [...] Problem List/Past Medical History Ongoing CAD in standing rock artery Cardiomyopathy Procedure/Surgical History Echocardiogram: 09/04/23 Cardiac [...] JACQUELINE FAUSTIN DPM on 11/05/2024 05:[address] [facility] HospitalAtmqcplk69-41-5023 Note* Exam Date Time Procedure Performing Provider Status 11/07/24 6:39 AM XR Chest 1 View GENARO NO MD; Auth (Verified) [id number] ORIGINAL EXAMINATION: ONE XRAY VIEW OF THE [...] 11/07/2024 6:54:29 AM Ordering Provider: EMILIO REYES 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 Initial saturation on 4 L nasal cannula was 70%. Lactic acid was elevated at 4.6. She initially went to ER at [facility] with shortness of breath and wheezing. [...] EMILIO DERAS MD on 11/06/2024 10:[address] [facility] HospitalFlnfyrgu41-37-7717 Note* Exam Date Time Procedure Performing Provider Status 11/06/24 6:28 AM XR Chest 1 View GENARO NO MD; Auth (Verified) [id number] ORIGINAL EXAMINATION: ONE XRAY VIEW OF THE [...] Genaro No MD Preliminary Report By: Rosy Aggawral Electronically signed By Genaro No MD Dictated Date: 11/06/2024 6:32:14 AM Prelim Date: 11/06/2024 6:34:04 AM Sign Date: 11/06/2024 6:39:04 AM Ordering Provider: EMILIO REYES [facility] [id number] Consult note Date of Service 11/05/2024 Reason [...] Problem List/Past Medical History Ongoing CAD in standing rock artery Cardiomyopathy Procedure/Surgical History Echocardiogram: 09/04/23 Cardiac [...] JACQUELINE FAUSTIN DPM on 11/05/2024 05:[address] 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 Initial saturation on 4 L nasal cannula was 70%. Lactic acid was elevated at 4.6. She initially went to ER at [facility] with shortness of breath and wheezing. [...] EMILIO DERAS MD on 11/05/2024 01:[address] [facility] HospitalJlhpvhgr12-03-4829 Note* Exam Date Time Procedure Performing Provider Status 11/05/24 10:45 AM Echocardiogram, Adult - CV MARY BERNAL MD; Auth (Verified) [facility] [id number] Note* Exam Date Time Procedure Performing Provider Status 11/05/24 6:27 AM XR Chest 1 View GENARO NO MD; Auth (Verified) [id number] ORIGINAL EXAMINATION: ONE XRAY VIEW OF THE [...] 6:36:29 AM Ordering Provider: VANDANA DOS SANTOS [facility] [id number] Note* Exam Date Time Procedure Performing Provider Status 11/04/24 8:[address] Angiography Chest w/ Contrast PARISH THRUMAN MD; Auth (Verified) [id number] ORIGINAL EXAMINATION: CTA OF THE CHEST 11/04/2024 [...] 11/04/2024 8:33:11 PM Ordering Provider: KAYLA RYAN [facility] HospitalVpfhmklp28-06-3788 Note. MICRO - Microbiology PROCEDURE: Streptococcus Pneumoniae [...] Locations *1: This test was performed at: [facility], [address] [place] [address], [facility] , [facility]01-13-2025 Note. MICRO - Microbiology PROCEDURE: Legionella Urine [...] Locations *1: This test was performed at: [facility], [address] [place] [address], [id number]- , [facility] [id number] History and physical note Date of Service 11/04/2023 Chief Complaint breathlessnessx1 day History of Present Illness Patient is a 69 [facility] on 11/04/2024 for concerns of breathlessness x [...] from patient documentation that was sent from [facility]. Per documentation, appears that patient was apparently [...] as well. While in the ER at [facility], patient was also found to have an irregularly irregular rhythm and was also tachycardic all the way up to 143 bpm.For this purpose as well as elevated blood pressures, patient was given Cardizem loading as well asCardizem drip. On the way via the ambulance to [facility], patient converted and is now in normal sinus rhythm. Roughly at about 10:30 AM this morning. While at [facility] preliminary vitals, Lab work, radiological tests showed: [...] and sedation protocols. -Obtain imaging reads from [facility]. -For the time being, we will continue [...] Problem List/Past Medical History Ongoing CAD in standing rock artery Cardiomyopathy Procedure/Surgical History Echocardiogram: 09/04/23 Cardiac [...] KAYLA RYAN MD on 11/04/2024 03:[address] [facility] HospitalSrsmirjf42-25-0711 Evaluation + Plan noteExtracted from: Title:History and [...] and sedation protocols. -Obtain imaging reads from [facility]. -For the time being, we will continue [...] and depression who presented as transfer from [facility] with acute respiratory failure requiring intubation. Initial saturation on 4 L nasal cannula was 70%. Lactic acid was elevated at 4.6. She initially went to ER at [facility] with shortness of breath and wheezing. She [...] Appointment Date:12/06/2024 03:30:00 PM Scheduled Provider:NORA ROBERT Location:[facility] Appointment Type:[facility] Hospital Follow Up Diagnostic Tests Pending * Culture Respiratory with Gram Stain 11/04/24 Future Scheduled Tests Laboratory* Basic Metabolic Panel 01/22/24 * Basic Metabolic Panel 02/08/24 * Basic Metabolic Panel 01/31/24 [facility] 01-13-2025 Note* Exam Date Time Procedure Performing Provider Status 11/04/24 12:34 PM XR Abdomen AP ARANZA REDDY MD; Auth (Verified) [id number] ORIGINAL EXAMINATION: ONE XRAY VIEW OF THE [...] Sign Date: 11/04/2024 12:56:39 PM Ordering Provider: [facility]01-13-2025 Note* Exam Date Time Procedure Performing Provider Status 11/04/24 12:32 PM XR Chest 1 View ARANZA REDDY MD; [facility] (Verified) [id number] ORIGINAL EXAMINATION: ONE XRAY VIEW OF THE [...] 11/04/2024 12:56:39 PM Ordering Provider: KAYLA RYAN [facility] HospitalOjvxidli09-46-3028 History and physical note Date of Service 11/04/2023 Chief Complaint breathlessnessx1 day History of Present Illness Patient is a 69 [facility] on 11/04/2024 for concerns of breathlessness x [...] from patient documentation that was sent from [facility]. Per documentation, appears that patient was apparently [...] as well. While in the ER at [facility], patient was also found to have an irregularly irregular rhythm and was also tachycardic all the way up to 143 bpm.For this purpose as well as elevated blood pressures, patient was given Cardizem loading as well asCardizem drip. On the way via the ambulance to [facility], patient converted and is now in normal sinus rhythm. Roughly at about 10:30 AM this morning. While at [facility] preliminary vitals, Lab work, radiological tests showed: [...] and sedation protocols. -Obtain imaging reads from [facility]. -For the time being, we will continue [...] Problem List/Past Medical History Ongoing CAD in standing rock artery Cardiomyopathy Procedure/Surgical History Echocardiogram: 09/04/23 Cardiac [...] KAYLA RYAN MD on 11/04/2024 03:[address] [facility] HospitalCvopopao43-17-2832 [facility]12-12-2024 History of Present illness Narrative* Kenzie [...] June she had COPD exacerbation, went to [facility] and was transferred to [place] per the patient. Rpeorts since that admission she still uses albuterol daily, and trelegy daily. She is currently taking Plavix, ASA and aspirin, she is unsure if she had an VT in the past or who started her [...] Referral to Cardiology 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, unspecified vessel [...] start losartan 50mg daily documented in this [facility] Work Phone: [phone]) 173-690711-27-2023 History of Present illness Narrative* Elvin Blanc PA-C - 09/18/2023 11:50 AM EST Subjective Patient ID: Zabrina Hsu is a 68 y.o. female who presents for Establish Care (Patient here to get established as a new patient and transferring from [place]./Patient dx with COPD, seen in ER last [...] Patient was recently admitted to hospital in [facility]. Patient is not sure why stating [...] T4 if abnormal 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, unspecified vessel [...] type (CMS/HCC) [I25.110] 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, unspecifiedvessel or lesion type (CMS/HCC) [I10] Primary hypertension [I50.9] Congestive heart failure, unspecified HF chronicity, unspecified heart failure type (CMS/HCC) documented in this [facility] Work Phone: 1(586) 277-916311-16-2023 Note. MICRO - Microbiology PROCEDURE: Blood Culture [...] Locations *1: This test was performed at: [facility], [address] [place] [address], [facility] , [facility])09-07-2023 Note. MICRO - Microbiology PROCEDURE: Blood [...] Locations *1: This test was performed at: [address]09-07-2023 Note. MICRO - Microbiology PROCEDURE: Blood [...] Locations *1: This test was performed at: [address], [address] [place] [address] ([facility]09-07-2023 Note. MICRO - Microbiology PROCEDURE: [...] Locations *1: This test was performed at: [facility], [address] [place] [address], [facility]- , [facility]09-06-2023 Hospital Discharge instructions Patient Education 09/06/2023 11:21:47 [...] Document Reviewed: 10/10/2014 ExitCare Patient Information 2015 [employer]. This information is not intended to replace [...] breathing. Follow these instructions at home: Take chdc-clf-iulsmvt and prescription medicines only as told by [...] 10/14/2014 Document Revised: 09/21/2018 Document Reviewed: 04/26/2017 Contemporary Analysis Patient Education 2020 Vidimax. 09/06/2023 11:20:40 Home Oxygen Use, Adult Home [...] oxygen Your health care provider or a customer success representative from your medical assistant instructor company will show you how touse your [...] move around. Follow instructions from your medical assistant instructor company about how to safely secure your tank. Make sure you have enough oxygen for the amount of time you will be away from home. If you are planning air travel, contact the airline to find out if they allow the use of an approved portable oxygen concentrator. You may also need documents from your health care provider and medical assistant instructor company before you travel. General safety tips If you use an oxygen cylinder, make sure it is in a stand or secured to an object that will not move (fixed object). If you use liquid oxygen, make sure its container is kept upright. If you use an oxygen concentrator: ?Tell your [employer]. Make sure you are given priority service [...] Summary Your health care provider or a customer success representative from your medical assistant instructor company will show you how touse your [...] 12/29/2004 Document Revised: 03/28/2019 Document Reviewed: 05/02/2017 Contemporary Analysis Patient Education 2020 Vidimax. Follow Up Care 09/02/2023 04:20:17 With:[employer] will be your oxygen supplier. Please call [phone] for questions or concerns. Address: When: Unknown With:FERCHO VILLASEÑOR Address: [address] [place] [address] [phone] Business (1) When:1-2 days With:PHILIPPE ZARAGOZA MD Address: [address] [address] [place] [address] [phone] When:5 to 7 days With:ASTRID ROBERT MD Address: [address] [place], [place] [id number]- [phone] When:09/13/2023 15:00:00 With:[facility] will contact you for an appointment If you have any questions please call:[phone]. Address: When: Unknown [facility] 11-15-2023 Note Discharge Instructions Thank you for allowing [facility] to assist you with your healthcare needs. The following is importantdischarge information regarding your hospital visit. Your Care Team DO FERCHO VILLASEÑOR What to do next Scheduled Follow-Up Appointments Appointment Type When Where [facility] Follow Up 09/13/2023 03:00 PM EST [facility] Follow Up Appointments Follow Up with ASTRID ROBERT MD When 09/13/2023 03:00 PM EST Where: [address] [place] [address]- [phone] Follow Up with PHILIPPE ZARAGOZA MD When Within 5 to 7 days Where: [address] [address] [place] [phone] Follow Up with [facility] will contact you for an appointment If you have any questionsplease call:[phone]. When Where: The Following Activity and Diet [...] needed for wheezing Refills: 3 Pickup at [facility] New clopidogrel (Plavix 75 mg oral tablet) 1 tab(s) by mouth Once a day Refills: 3 Pickup at [facility] New fluticasone/ umeclidinium/ vilanterol (Trelegy Ellipta 100 mcg-62.5 mcg-25 mcg/ inh inhalation powder) 1 puff(s) by inhalation Once a day Refills: 3 at the same time every day. Following administration, rinse mouth with water after use (do not swallow). Pickup at [facility] New furosemide (Lasix 20 mg oral tablet) 1 tab(s) by mouth Once a day Refills: 3 Pickup at [facility] New metoprolol (metoprolol succinate 25 mg oral TABLET extended release) 1 tab(s) by mouth Twice daily with meals Refills: 3 Pickup at [facility] New rosuvastatin (rosuvastatin 20 mg oral tablet) 2 tab(s) by mouth Once a day Refills: 3 Pickup at [facility] New sacubitril-valsartan (Entresto 24 mg-26 mg oral tablet) 1 tab(s) by mouth Two (2) times a day Refills: 3 Pickup at [facility] Unchanged aspirin (aspirin 81 mg oral delayed release tablet) 1 tab(s) by mouth Every day Unchanged buPROPion (Wellbutrin SR) 100 Milligram by mouth Once a day Unchanged oxcarbazepine (Trileptal) 150 Milligram by mouth Daily at bedtime Pharmacy Information [facility]: [address] [place], [place] [id number] [phone] Please take this list to your next [...] wireless accessories such as remote control, or Data3Sixtyoth devices. Do not reuse a needle, syringe [...] blood pressure, such as diet pills or nmlmi-dmr-uwbi medicine. What are the possible side effects [...] may report side effects to FDA at 7-722-ILH-4729. What other drugs will affect furosemide? Sometimes [...] drugs may affect furosemide, including prescription and isri-ixx-gnhzfrw medicines, vitamins, and herbal products. Not all [...] to ensure that the information provided by [employer]. ('Multum') is accurate, up-to-date, and complete, but no guarantee is made to that effect. Drug information contained herein may be time sensitive. Book[employer] information has been compiled for use by healthcare practitioners and consumers in the [place] and therefore Book[employer]Bloom does not warrant that uses outside of the [place] are appropriate, unless specifically indicated otherwise. [employer] drug information does not endorse drugs, diagnose patients or recommend therapy. [employer] drug information isan informational resource designed to assist licensed healthcare practitioners in caring for their p atmedical center enterprise and/or to serve consumers viewing this service as a supplement to, and not a substitute for, the expertise, skill, knowledge and judgment of healthcare practitioners. The absence of a warningfor a given drug or drug combination in no way should be construed to indicate that the drug or drug combination is safe, effective or appropriate for any given patient. [employer] does not assume any responsibility for any aspect of healthcare administered with the aid of information Book[employer]Bloom provides. The information contained herein is not intended to cover all possible uses, directions, precautions, warnings, drug interactions, allergic reactions, or adverse effects. If you have questions about the drugs you are taking, check with your doctor, nurse or pharmacist. Copyright 1538-6646 [facility] MascotaNube. Version: 18.. Revision Date: 12/30/2022. metoprolol (oral/injection) [...] may report side effects to FDA at 2-151-YOM-3297. What other drugs will affect metoprolol? Tell your doctor about all your current medicines. Many drugs can affect metoprolol, especially: any other heart or blood pressure medications; epinephrine (Epi-Pen); an antidepressant; an ergot medicine--dihydroergotamine, ergonovine, ergotamine, methylergonovine; or an MAO inhibitor--isocarboxazid, linezolid, phenelzine, rasagiline, selegiline, tranylcypromine. This list is not complete and many other drugs may affect metoprolol. This includes prescription and qhbt-yay-eratjen medicines, vitamins, and herbal products. Not all [...] to ensure that the information provided by [employer]. ('Multum') is accurate, up-to-date, and complete, but no guarantee is made to that effect. Drug information contained herein may be time sensitive. Book[employer]Bloom information has been compiled for use by healthcare practitioners and consumers in the [place] and therefore Book[employer]Bloom does not warrant that uses outside of the [place] are appropriate, unless specifically indicated otherwise. [employer] drug information does not endorse drugs, diagnose patients or recommend therapy. [employer]s drug information isan informational resource designed to [...] effective or appropriate for any given patient. [employer] does not assume any responsibility for any aspect of healthcare administered with the aid of information Book'n[employer]Bloom provides. The information contained herein is not intended to cover all possible uses, directions, precautions, warnings, drug interactions, allergic reactions, or adverse effects. If you have questions about the drugs you are taking, check with your doctor, nurse or pharmacist. Copyright 6968-3329 [employer]. Version: 19.. Revision Date: 05/31/2023. Education Materials [...] 10/10/2014 [facility] Patient Information 2015 [employer]. This information is not intended to replace [...] breathing. Follow these instructions at home: Take xfhz-bei-vhvopbu and prescription medicines only as told by [...] 10/14/2014 Document Revised: 09/21/2018 Document Reviewed: 04/26/2017 Contemporary [employer] Patient Education 2020 [employer] Inc. Home Oxygen Use, Adult When a [...] oxygen Your health care provider or a customer success representative from your medical assistant instructor company will show you how touse your [...] move around. Follow instructions from your medical assistant instructor company about how to safely secure your tank. Make sure you have enough oxygen for the amount of time you will be away from home. If you are planning air travel, contact the airline to find out if they allow the use of an approved portable oxygen concentrator. You may also need documents from your health care provider and medical assistant instructor company before you travel. General safety tips [...] Summary Your health care provider or a customer success representative from your medical assistant instructor company will show you how touse your [...] 12/29/2004 Document Revised: 03/28/2019 Document Reviewed: 05/02/2017 Contemporary [employer] Patient Education 2020 [employer] Inc. Additional Information VACCINATE! IT SAVES LIVES! Members of the community who have not yet received the COVID-19 vaccine and would like to receive it can visit one of [facility] vaccine clinics. There are many vaccine clinic locations within the [facility]. For locations and available times, please visit https://gettheshot.coronavirus.[place].gov/. It is important to note that some COVID mobile vaccine clinics are held outdoors and may be canceled in rainy or stormy conditions. To learn more about pediatric vaccinations (ages 5-11), we invite you to visit the [facility] webpage. https://www.[facility].org/pages/0667-Juxqf-Lcpmhgjjrik-Hxhcyaxhex-Pqcsd-Awx stions.htmlTo learn more about the COVID-19 vaccine, we invite you to visit the CDC website for a list of frequently asked questions.https://www.cdc.gov/coronavirus/2019-ncov/vaccines/faq.html [employer] [facility] [facility] Patient Portal Access Instructions: Stay connected with your healthcare team and access your personal medical information anytime with the [facility] Patient Portal. Please follow the directions below to create your [employer] [facility] account: 1.Access the email account you provided upon registration to the hospital/physician office.2.Look for an invitation email from [facility].3.Open the email and access the invitation link: AcceptInvitation to [facility].4.Fill in the required lr to create your account. To access your account, visit [employer]Thinkful[employer]. Click the blue button labeled Access Patient [...] you will allowto register on the [facility] Patient Portal for access to your information. You can also access the [employer] Patient Portal on the [facility] benitez. Simply click on Patient Portal and then log into your account. If you would like to receive a full copy of your medical records, please contact the [facility] Medical Records Department by calling [phone], Monday through Monday between 8 a.m. and [...] Call your local pharmacy or go to [email or web address] to find one close to you.3.Make use of household items: Use cat litter or old coffee grounds to dispose medications if other options arenot available. Mix your drugs with these household products, seal them in an airtight container andthrow it into the garbage. Call [facility]: [phone] to be sure your drugs can be [...] combine opioids with (more content not included)... [facility] HospitalCxngciwi34-68-4499 Respiratory therapy Hospital Progress note Respiratory Therapy [...] by DESHAWN Cuenca on 09/06/2023 10:[address] 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 (I25.10 - [...] BID, # 60 tab(s), 3 Refill(s), Pharmacy: [facility], 157.5, cm, 09/02/23 6:47:00 EST, [...] qDay, # 30 tab(s), 3 Refill(s), Pharmacy: [facility], 157.5, cm, 09/02/23 6:47:00 EST, Height, kg, 09/02/23 6:47:00 EST, Dosing Weight Ordered: Plavix 75 mg oral tablet,Dose : 75 mg = 1 tab(s), Oral, qDay, # 30 tab(s), 3 Refill(s), Pharmacy: [facility], 157.5, cm, 09/02/23 6:47:00 EST, [...] swallow)., # 60 EA, 3 Refill(s), Pharmacy: [facility], 157.5, cm, 09/02/23 6:47:00 EST, Height, kg, 09/02/23... Ordered: albuterol MDI (90 mcg/inh) CFC free inhalation aerosol,1 puff(s), Inhalation, q4h, PRN as needed for wheezing, # 8.5 gram(s), 3 Refill(s), Pharmacy: [facility], 157.5, cm, 09/02/23 6:47:00 EST, Height, kg, 09/02/23 6:47:00 EST, Dosing Weight Discontinued: losartan,Start: 09/04/23 11:43:00 EST, Dose = 25 mg, = 1 tab(s), Oral, qDay, 09/04/2311:43:00 EST Discontinued: losartan 25 mg oral tablet,Dose : 25 mg = 1 tab(s), Oral, qDay, # 30 tab(s), 3 Refill(s), Pharmacy: [facility], 157.5, cm, 09/02/23 6:47:00 EST, Height, kg, 09/02/23 6:47:00 EST, Dosing Weight Ordered: metoprolol succinate 25 mg oral TABLET extended release,Dose : 25 mg = 1 tab(s), Oral, BIDM, # 60 tab(s), 3 Refill(s), Pharmacy: [facility], 157.5, cm, 09/02/23 6:47:00 EST, Height, kg, 09/02/23 6:47:00 EST, Dosing Weight Ordered: rosuvastatin 20 mg oral tablet,Dose : 40 mg = 2 tab(s), Oral, qDay, # 60 tab(s), 3 Refill(s), Pharmacy: [facility], 157.5, cm, 09/02/23 6:47:00 EST, [...] PM EST Where: [address] [facility] [place] [address]- [phone] Follow Up with PHILIPPE ZARAGOZA MD When Within 5 to 7 days Where: [address] [address] [place] [address] [phone] Follow Up with [facility] will contact you for an appointment If you have any questionsplease call:[phone]. When Where: Follow Up Appointments No qualifying data available. Follow Up Labs/Studies Discharge Labs No Follow-up Labs Discharge Studies No Follow-up Studies Discharge Diet No qualifying data available. Discharge Activity No qualifying data available. Readmission Risk/Palliative Score LACE Score: 11 (09/04/23 12:59:00) Palliative Total Score: 1 (09/04/23 13:00:00) Digitally Signed by CARLOS NOONAN MD on 09/06/2023 10:[address] [facility] HospitalFfwhrkyk02-43-2514 Cardiology Progress note Subjective No acute overnight [...] CARLOS NOONAN MD on 09/05/2023 03:[address] [facility] HospitalLbgroelq46-46-8400 Cardiology Progress note Subjective No acute overnight [...] CARLOS NOONAN MD on 09/04/2023 12:[address] [facility] HospitalOqphllug43-16-7960 Note Date of Service 09/04/2023 Chief Complaint [...] by ROSY MORALEZ on 09/04/2023 02:[address] [facility] HospitalZuekfhzz58-02-5673 Pulmonary Progress note Date of Service 09/04/2023 [...] exam. Agree with diuresis Philippe Zaragoza M.D., [facility] Digitally Signed by PHILIPPE ZARAGOZA MD on 09/04/2023 01:[address] [facility] HospitalDgztlwpb73-40-5014 Cardiology Progress note Subjective No acute overnight [...] be due to COPD versus CHF exacerbation. [facility] results personally reviewed along with TTE, [...] CARLOS NOONAN MD on 09/04/2023 12:[address] [facility] HospitalHnckvxcv90-52-7276 Note Date of Service 09/04/2023 Chief Complaint [...] by ROSY MORALEZ on 09/04/2023 02:[address] [facility] HospitalUhpirodx38-75-5129 Note* Exam Date Time Procedure Performing Provider Status 09/04/23 10:04 AM Echocardiogram, Adult - CV Auth (Verified) [facility] 11-13-2023 Note. MICRO - Microbiology PROCEDURE: [...] Locations *1: This test was performed at: [address], [address] [place] [address] ([place])09-04-2023 Note. MICRO - Microbiology PROCEDURE: Culture Respiratory [...] Locations *1: This test was performed at: [address], [address] [place] [address] ([place])09-04-2023 Note ORIGINAL EXAMINATION: ONE XRAY VIEW OF [...] Shahida Galicia MD Electronically signed By Shahida Gailcia MD Dictated Date: 09/04/2023 6:39:13 AM Prelim Date: 09/04/2023 6:42:09 AM Sign Date: 09/04/2023 6:42:09 AM Ordering Provider: [facility]11-12-2023 Note Date of Service 09/03/2023 Reason [...] continue to follow-up. Note was written using My Perfect Gig manager operations research software. Some of the meaning of the words and sentences might have changed during manager operations research, if there was ever some confusion about [...] ROSINA BRO MD on 09/03/2023 05:[address] [facility] HospitalEwkdmgjr30-94-3332 Cardiology Consult note Date of Service 09/03/2023 [...] of this technology. Sonia Canseco DO, MS Landmen (PGY-6) Pager [phone]/ Cortext Problem List/Past Medical History Ongoing No [...] SONIA CANSECO DO on 09/03/2023 08:[address] [facility] HospitalKjoubpxu11-99-9301 Note* Exam Date Time Procedure Performing Provider Status 09/03/23 11:40 AM Cardiac Catheterization -CV Auth (Verified) [facility] 11-12-2023 Note Date of Service 09/03/2023. Day #2 in MICU Radha Hsu is a 68-year-old female with a past medical history of COPD, bipolar disorder, tobacco abuse, GERD, anxiety, depression, suicidal attempt in the past [2010], and personality disorder.The patient presented to [facility] for shortness of breath. The patient was [...] results, the patient was transferred to the [facility] ICU. During this admission it [...] JHONNY VALENCIA MD on 09/03/2023 11:[address] [facility] HospitalNcrolbpo91-04-7290 Nurse Progress note Attempted to call patient's , per patient request, to update him on patient's plan of care. did not answer home phone, voicemail box was full and unable to leave a message. Patient provided 's cell phone number. No answer and again unable to leave a message. Digitally Signed by Pamella Tao RN on 09/03/2023 09:[address] [facility] HospitalXoysmvqa39-81-9726 Cardiology Consult note Date of Service 09/03/2023 [...] of this technology. Sonia Canseco DO, MS [employer] (PGY-6) Pager [phone]/ Cortext Problem List/Past Medical History Ongoing No [...] No qualifying data available. Digitally Signed by OSNIA CANSECO DO on 09/03/2023 08:[address] [facility] HospitalEgqzfzev68-97-5949 NoteSinus rhythm Atrial premature complex Prolonged QT interval T WAVE INVERSION CONCERNING FOR ISCHEMIA Electronic Signature: ADAM MALLORY MD 09/03/2023 16:06:55[facility] 11-11-2023 Note. MICRO - Microbiology PROCEDURE: [...] Locations *1: This test was performed at: [address], [facility] , [facility] ([place])09-02-2023 Note. MICRO - Microbiology PROCEDURE: Blood Culture [...] *1: This test was performed at: [address], [facility] , [facility] ([facility]09-02-2023 Note. MICRO - Microbiology PROCEDURE: [...] Locations *1: This test was performed at: [address], [facility] , [facility] ([facility]09-02-2023 Note. MICRO - Microbiology PROCEDURE: [...] Locations *1: This test was performed at: [address], [facility] , [facility] ([place])09-02-2023 NoteSinus rhythm Atrial premature complex Probable anterior infarct, age indeterminate Prolonged QT interval Electronic Signature: ADAM MALLORY MD 09/03/2023 16:06[facility] 11[facility]11[facility]2023 NoteSinus rhythm Atrial premature complex Anterior infarct, old Nonspecific T abnormalities, lateral leads Prolonged QT interval Electronic Signature: ADAM MALLORY MD 09/03/2023 16:06:01[facility] 11-11-2023 Evaluation + Plan noteExtracted from: [...] 09/02/23 * Streptococcus Pneumoniae Urine Antig 09/02/23 [facility] 11-11-2023 History and physical note Date [...] JHONNY VALENCIA MD on 09/02/2023 01:[address] [facility] HospitalZliuvfll70-88-9639 Note ORIGINAL EXAMINATION: LIMITED ABDOMINAL HRWVBZODVY28/11/2023 12:19 pm COMPARISON: None HISTORY: ORDERING SYSTEM [...] Sign Date: 09/02/2023 2:27:43 PM Ordering Provider: [facility]11-11-2023 NoteSinus rhythm Atrial premature complex Anterior infarct, old Nonspecific T abnormalities, lateral leads Prolonged QT interval Electronic Signature: ADAM MALLORY MD 09/03/2023 16:05:52[facility] 11-11-2023 Note ORIGINAL EXAMINATION: ONE XRAY [...] Sign Date: 09/02/2023 8:06:12 AM Ordering Provider: [facility]11-11-2023 History and physical note Date of Service 09/02/2023 Chief Complaint Shortness of breath History of Present Illness Marcela Hsu is a 68-year-old female with a past medical history of COPD, bipolar disorder, tobacco abuse, GERD, anxiety, depression, suicidal attempt in the past [2011], and personality disorder.The patient presented to [facility] for shortness of breath. The patient was [...] results, the patient was transferred to the [facility] ICU. Of note Echo on [...] was 3.7 on admission The patient's admitting [facility] lactic acid was 1.8. We will not [...] PM Digitally Signed by JHONNY VALENCIA MD [facility] note Author Eleazar Valle [facility] Note Date/Time July 16, 2025 10:10am [facility] Medical Records Department [address] [place] [address] [place] [address] Consultation - Inspector And Tester 07/16/25811 MR#: [id number] Acct: [id number] Name: ZABRINA HSU Rep #:[id number] : [...] antimicrobials and Lasix. [facility]. 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 Reading [facility] Chest CTA 07/16/25 03:25 IMPRESSION: No demonstrated PE, or thoracic aortic aneurysm Underlying emphysema with superimposed CHF, pneumonitis, bronchitis, free- flowing bilateral pleural effusions and bibasilar atelectasis ETT tip is in the right mainstem bronchus and should be retracted 3-4 cm, NG tube tip in satisfactory position No suspicious adenopathy Degenerative bony changes Dillon Alert: ET tube tip in the SADAF The critical findings in the findings and impression above were relayed directlyby me by telephone to Bernardo Sharif on 07/16/2025 at 6:56 am with readback verification. Reading Location: [facility] Abdomen/Pelvis CT 07/16/25 06:40 IMPRESSION: No suspicious solid organ abnormality, there is atrophy of the right kidney compared to the left but no obstructive uropathy or suspicious solid renal lesion. Retained stool throughout the colon which may be impacted No free intraperitoneal fluid, air, or suspicious adenopathy NG tube tip in the body of the stomach Diffuse atherosclerosis Degenerative bony changes Reading Location: [facility] Charges/Coding Procedures Hospitalists Procedures: 44067 Critical Care 1st Hr 07/16/25 1010 <Electronically signed by Eleazar Valle DO> Cosigner Signature (if applicable): CC: SEUN Ozuna~ Signed [facility] Work Phone: Consult note Author Noelle Yañez [facility] Note Date/Time July 16, 2025 10:25am [facility] Medical Records Department [address] [place] [address] Pharmacokinetic/Renal -Consult 07/16/25 0941 MR#: [id number] Acct: [id number] Name: ZABRINA HSU Rep #:[id number] : [...] Date Eleazar Valle DO CC: ~ Signed [facility] Work Phone: Consult note Author Noelle Yañez [facility] Note Date/Time July 18, 2025 12:13pm [facility] Medical Records Department [address] [place] [address] Pharmacokinetic/Renal -Consult 07/18/25 1128 MR#: [id number] Acct: [id number] Name: ZABRINA HSU Rep #:[id number] : [...] Date Eleazar Valle DO CC: ~ Signed [facility] Work Phone: Consult note Author Mateo Gonzales [facility] Note Date/Time July 21, 2025 7:34am [facility] Medical Records Department [address] [place] [address] Pharmacokinetic/Renal -Consult 07/20/25 1137 MR#: [id number] Acct: [id number] Name: ZABRINA HSU Rep #:[id number] : [...] Date Eleazar Valle DO CC: ~ Signed [facility] Work Phone: Consult note Author Apple kaiser [facility] Note Date/Time July 22, 2025 1:59pm [facility] Medical Records Department [address] [place] [address] Consultation - Palliative Care 07/22/25 1215 MR#: [id number] Acct: [id number] Name: ZABRINA HSU Rep #:[id number] : 1955 70 From: Apple KOHLI PCP: SEUN Alvarez Status:ADM IN Location: ICU ICU01-1 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 Charges/Coding Palliative Care Palliative Care: 09899 New Pt Consult 80+ min HPI Current [...] as clinical picture evolves. 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 Ms. Hsu was noted [...] a Healthcare Power No 07/16/25 07:58 of Dispensing Operator? Do You Want Additional Declined 07/16/25 07:58 Information on Advanced Directives or Healthcare Proxy/DPOA comments: Patient states that they do have legal paperworkand that her , her would be her decision-maker if she is unable to make decisions for herself. Psychosocial/Spiritual Information Living situation/Marital status: Spoke spoke with and 16-year-old grandson. Geographic location: [place] Supports: Family Yazidism/Grazyna or spiritual preference: Restorationism Prior functional status: [...] 84.7 H, Lymph % (Auto) 8.4 L, [place] % (Auto) 4.1, Eos % (Auto) 0.0, [...] a result of this Palliative Care Encounter: [[phone], [phone] ] minutes were spent in total for [...] care conversations as clinical picture evolves. 07/22/25 3897 <Electronically signed by Apple KOHLI> Cosigner Signature (if applicable): CC: SEUN Ozuna~ Signed [facility] Work Phone: Consult note Author Kendall Doran [facility] Note Date/Time July 26, 2025 4: 11pm [facility] Medical Records Department [address] [place] [address] Consultation - Cardiology 07/26/25 1609 MR#: [id number] Acct: [id number] Name: ZABRINA HSU Rep #:[id number] : 1955 70 From: Kendall be MD PCP: SEUN Alvarez Status:DIS IN Location: [facility] UUY817- 1 Assessment & Plan Assessment/Plan (1) Multifocal atrial tachycardia: PLAN: Patient's heart rate is currently controlled. Continue current medications at this time. She can follow-up with [facility] as an outpatient. HPI Consult [...] her heart rate. 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 Reading Location: [facility] Risk Score for UA/STEMI Assesmment (YES = 1) Risk Stratification Applicable: No 07/26/25 1611 <Electronically signed by Kendall Doran MD> Cosigner Signature (if applicable): CC: SEUN Ozuna~ Signed [facility] Work Phone: Discharge summary Author Bernardo Sharif [facility] Note Date/Time July 16, 2025 7:03am [facility] Medical Records Department [address] [place] [address] Emergency Department Summary 07/16/25 MR#: [id number] Acct: [id number] Name: ZABRINA HSU Rep #:[id number] : 1955 70 From: Bernardo Small PCP: SEUN Alvarez Status:REG ER Location: ED HPI History of Present Illness Chief Complaint: Shortness of Breath PFSH PFSH Medical History Anxiety 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 Reviewed recent hospitalization. Patient was admitted to [facility] from 06/16/2025 until 06/25/2025 for acute on chronic respiratory failure hypoxia. Acute pulmonary edema, NSTEMI, COPD exacerbation. This time patient suffered respiratory failure required mechanical ventilation. Factors affecting care: As per HPI Social determinants of health: none History obtained from others: EMS Consults: Internal Medicine (Dr. Haile) [facility] Narrative: The patient was initially hypertensive [...] Patient is appropriate for admission here at [facility] to intensive care unit. Dr. Hess added [...] to ICU This note was generated with [employer] dictation software. It may contain incorrectwords, spelling, [...] Provider: Alfonso Ozuna NP Referrals: Alfonso Ozuna DYEHOUSE WORKER, DYEHOUSE WORKER-C [Primary Care Provider, Family Practice] Print Language: Chadian What to do if you have Problems For any increased pain, shortness of breath, bleeding, nausea or vomiting, chestpain, or any unexpected problems, contact your Primary Care Provider. Call [facility] ([phone]) or report to the closest Emergency Room. Call 911 if necessary. 07/16/25 0703 <Electronically signed by Bernardo Sharif DO> Cosigner Signature (if applicable): CC: SEUN Ozuna ~ Signed [facility] Work Phone: Evaluation note* Diagnosis Chronic obstructive pulmonary disease, unspecified COPD type (CMS/HCC)- Primary 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, unspecified vessel or lesion type (CMS/HCC) Primary hypertension Unspecified essential hypertension Congestive heart failure, unspecified HF chronicity, unspecified heart failure type (CMS/HCC) documented in this encounter [facility] Work Phone: Evaluation note* Diagnosis Primary hypertension- Primary Unspecified essential hypertension Congestive heart failure, unspecified HF chronicity, unspecified heart failure type 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, unspecified vessel or lesion type Chronic obstructive pulmonary disease, unspecified COPD type (Multi) Health maintenance examination Unspecified general medical examination documented in this encounter [facility] Work Phone: Evaluation note* Diagnosis Onset [...] r 2024 6:21am [facility] Work Phone: Hospital course Narrative No data available for this section [facility] Progress note Author Gerard Santos [facility] Note Date/Time July 16, 2025 12:12pm [facility] Medical Records Department [address] [place] [address] Progress Note - Hospitalist 07/16/25 1200 MR#: [id number] Acct: [id number] Name: ZABRINA HSU Rep #:[id number] : [...] 30.6 L, Lymph % (Auto) 56.5 H, [place] % (Auto) 6.4, Eos % (Auto) 2.7, [...] AST 158 H, ALT 118 H, Alkaline Yjookmdsbea157 H, Total Creatine Kinase 126, Troponin T [...] Clarity Clear, Urine pH 7.0, Ur Specific [place] 1.005, Urine Protein 30 H, Urine Glucose [...] position No suspicious adenopathy Degenerative bony changes Dillon Alert: ET tube tip in the SADAF The critical findings in the findings and impression above were relayed directlyby me by telephone to Bernardo Sharif on 07/16/2025 at 6:56 am with readback verification. Reading Location: [id number] Echocardiogram 07/16/25 06:31 Interpretation Summary Mild concentric [...] Diffuse atherosclerosis Degenerative bony changes Reading Location: [facility] Chest X-Ray 07/16/25 09:05 IMPRESSION: Tubes and [...] Cosigner Signature (if applicable): CC: ~ Signed [facility] Work Phone: Progress note Author Gerard Santos [facility] Note Date/Time July 17, 2025 12:53pm [facility] Medical Records Department [address] [place] [address] Progress Note - Hospitalist 07/17/25703 MR#: [id number] Acct: [id number] Name: ZABRINA HSU Rep #:[id number] : [...] Clarity Clear, Urine pH 7.0, Ur Specific [place] 1.005, Urine Protein 30 H, Urine Glucose [...] Diffuse atherosclerosis Degenerative bony changes Reading Location: [id number] Chest X-Ray 07/16/25 09:05 IMPRESSION: Tubes and [...] at bedside. Charges/Coding Visit Charges Inpatient E&M: 68895 Subs Hosp L2 07/17/25 1253 <Electronically signed by Gerard Santos DO> Cosigner Signature (if applicable): CC: ~ Signed [facility] Work Phone: Progress note Author Eleazar Valle [facility] Note Date/Time July 17, 2025 10:00am [facility] Medical Records Department [address] [place] [address] Progress Note - Inspector And Tester 07/17/25 0737 MR#: [id number] Acct: [id number] Name: ZABRINA HSU Rep #:[id number] : [...] Clarity Clear, Urine pH 7.0, Ur Specific [place] 1.005, Urine Protein 30 H, Urine Glucose [...] in the left upper lung. Reading Location: [facility] Chest X-Ray 07/17/25 05:10 IMPRESSION: Tubes and lines in position. There are perihilar infiltrates in the right and left, improved. Reading Location: [facility] Physical Exam Const Constitutional Narrative: The [...] sedated on vent Charges/Coding Procedures Hospitalists Procedures: 19951 Critical Care 1st Hr 07/17/25 1000 <Electronically signed by Eleazar Brown DO> Cosigner Signature (if applicable): CC: ~ Signed [facility] Work Phone: Progress note Author Eleazar Valle [facility] Note Date/Time July 18, 2025 9:00am [facility] Medical Records Department [address] [place] [address] Progress Note - Inspector And Tester 07/18/25 0739 MR#: [id number] Acct: [id number] Name: ZABRINA HSU Rep #:[id number] : [...] RDW Coeff of Shivam 15.1 H, Plt [id number], MPV 9.7, Immature Gran % (Auto) 0.400, Neut % (Auto) 84.1 H, Lymph % (Auto)9.1 L, [place] % (Auto) 6.3, Eos % (Auto) 0.0, [...] 88.5 H, Lymph % (Auto) 5.9 L, [place] % (Auto) 4.7, Eos % (Auto) 0.0, [...] in the left upper lung. Reading Location: [facility] Chest X-Ray 07/17/25 05:10 IMPRESSION: Tubes and lines in position. There are perihilar infiltrates in the right and left, improved. [facility] Physical Exam Const Constitutional Narrative: The [...] sedated on vent Charges/Coding Procedures Hospitalists Procedures: 12993 Critical Care 1st Hr 07/18/25 0900 <Electronically signed by Eleazar Valle DO> Cosigner Signature (if applicable): CC: ~ Signed [facility] Work Phone: Progress note Author Gerard Santos [facility] Note Date/Time July 18, 2025 12:30pm [facility] Medical Records Department [address] [place] [address] Progress Note - Hospitalist 07/18/25806 MR#: [id number] Acct: [id number] Name: ZABRINA HSU Rep #:[id number] : [...] RDW Coeff of Shivam 15.1 H, Plt [id number], MPV 9.7, Immature Gran % (Auto) 0.400, Neut % (Auto) 84.1 H, Lymph % (Auto)9.1 L, [place] % (Auto) 6.3, Eos % (Auto) 0.0, [...] 88.5 H, Lymph % (Auto) 5.9 L, [place] % (Auto) 4.7, Eos % (Auto) 0.0, [...] IV daily. Charges/Coding Visit Charges Inpatient E&M: 11591 Subs Hosp L2 07/18/25 1230 <Electronically signed by Gerard Santos DO> Cosigner Signature (if applicable): CC: ~ Signed [facility] Work Phone: Progress note Author Gerard Santos [facility] Note Date/Time July 19, 2025 12:35pm [facility] Medical Records Department [address] [place] [address] Progress Note - Hospitalist 07/19/25 0758 MR#: [id number] Acct: [id number] Name: ZABRINA HSU Rep #:[id number] : 1955 70 From: Gerard Santos DO PCP: Alfonso Ozuna DYEHOUSE WORKERNuvia Status:ADM IN Location: ICU ICU01-1 Reason for [...] 90.1 H, Lymph % (Auto) 4.7 L, [place] % (Auto) 4.3, Eos % (Auto) 0.1, [...] detailed. Improvement in perihilar densities. Reading Location: [facility] Physical Exam Const Constitutional Narrative: intubated. sedated. [...] IV daily. Charges/Coding Visit Charges Inpatient E&M: 26454 Subs Hosp L2 07/19/25 1235 <Electronically signed by Gerard Santos DO> Cosigner Signature (if applicable): CC: ~ Signed [facility] Work Phone: Progress note Author Reid Murillo [facility] Note Date/Time July 19, 2025 11:55am [facility] Medical Records Department [address] [place] [address] Progress Note - Inspector And Tester 07/19/25 1144 MR#: [id number] Acct: [id number] Name: ZABRINA HSU Rep #:[id number] : [...] 07/16/25 07:59 07/19/25 07:27 IV 0 mls/hr .[id number] PRN Infusion Saline Flush Sodium Chloride 250 mls @ 15 mls/hr 07/16/25 07:59 IV .[id number] PRN Additional IVPB Infusion Fentanyl 100 mls [...] 11:29 Sodium Chloride CONT INF 0.9 mcg/kg/hr .[id number] TIMOTHY 11.4 mls/hr Protocol Titration 0.5 MCG/KG/HR Enteral Nutritional Formula 1,000 mls @ 45 mls/hr 07/17/25 10:05 07/19/25 09:30 Vital Af 1.2 Blake Liquid GT 45 mls/hr .[id number] TIMOTHY Administration Propofol 1,000 mg in 100 [...] Vancomycin Trough/Random Due MC 07/20/25 12:30 DAILY [facility] Lab / Micro Data Attestation: I reviewed [...] 90.1 H, Lymph % (Auto) 4.7 L, [place] % (Auto) 4.3, Eos % (Auto) 0.1, [...] detailed. Improvement in perihilar densities. Reading Location: [facility] Assessment and Plan . Assessment and plan: [facility] Medical Records Department [address] [place] [address] Progress Note - Inspector And Tester 07/18/25 0739 MR#: [id number] Acct: [id number] Name: ZABRINA HSU Rep #: [id number] : 1955 70 From: Eleazar Valle DO [...] Cosigner Signature (if applicable): CC: ~ Signed [facility] Work Phone: Progress note Author Gerard Santos [facility] Note Date/Time July 20, 2025 11:57am [facility] Medical Records Department [address] [place] [address] Progress Note - Hospitalist 07/20/25835 MR#: [id number] Acct: [id number] Name: ZABRINA HSU Rep #:[id number] : [...] (Auto) 89.3 H, Lymph % (Auto)5.2 L, [place] % (Auto) 4.5, Eos % (Auto) 0.0, [...] IV daily. Charges/Coding Visit Charges Inpatient E&M: 95206 Subs Hosp L2 07/20/25 1157 <Electronically signed by Gerard Santos DO> Cosigner Signature (if applicable): CC: ~ Signed [facility] Work Phone: Progress note Author Reid Murillo [facility] Note Date/Time July 20, 2025 9:07am [facility] Medical Records Department [address] [place] [address] Progress Note - Inspector And Tester 07/20/25899 MR#: [id number] Acct: [id number] Name: ZABRINA HSU Rep #:[id number] : [...] 07/16/25 07:59 07/20/25 06:02 IV 0 mls/hr .[id number] PRN Infusion Saline Flush Sodium Chloride 250 mls @ 15 mls/hr 07/16/25 07:59 IV .[id number] PRN Additional IVPB Infusion Fentanyl 100 mls [...] Af 1.2 Blake Liquid GT Not Given .N30V99S TIMOTHY Propofol 1,000 mg in 100 mls @ 3.06 mls/hr 07/18/25 01:15 07/20/25 00:41 Diprivan CONT INF Not Given .Q12H TIMOHTY Protocol 10 MCG/KG/MIN Vancomycin HCl 1,250 mg/ 275 mls @ 167 mls/hr 07/18/25 12:00 07/19/25 13:10 Sodium Chloride IV Infused Q24H TIMOTHY Infusion Dexmedetomidine HCl 1,000 mcg/ 250 mls @ 6.375 mls/hr 07/19/25 22:00 07/20/2507:00 Sodium Chloride CONT INF 1.5 mcg/kg/hr .[id number] TIMOTHY 19.1 mls/hr Protocol Titration 0.5 MCG/KG/HR [...] 10:00 Quetiapine 25 Mg Tablet GT BID [facility] Protocol Sodium Chloride 10 - 40 ml [...] (Auto) 89.3 H, Lymph % (Auto)5.2 L, [place] % (Auto) 4.5, Eos % (Auto) 0.0, [...] Cosigner Signature (if applicable): CC: ~ Signed [facility] Work Phone: Progress note Author Eleazar Valle [facility] Note Date/Time July 21, 2025 10:38am [facility] Medical Records Department [address] [place] [address] Progress Note - Inspector And Tester 07/21/25 0734 MR#: [id number] Acct: [id number] Name: ZABRINA HSU Rep #:[id number] : [...] 83.2 H, Lymph % (Auto) 8.8 L, [place] % (Auto) 5.8, Eos % (Auto) 0.1, [...] in the left upper lung. Reading Location: [facility] Chest X-Ray 07/17/25 05:10 IMPRESSION: Tubes and lines in position. There are perihilar infiltrates in the right and left, improved. Reading Location: [facility] Physical Exam Const Constitutional Narrative: The [...] follow simple commands. Charges/Coding Procedures Hospitalists Procedures: 87074 Critical Care 1st Hr 07/21/25 1038 <Electronically signed by Eleazar Valle DO> Cosigner Signature (if applicable): CC: ~ Signed [facility] Work Phone: Progress note Author Renee Encarnacion [facility] Note Date/Time July 21, 2025 5:28pm [facility] Medical Records Department [address] [place] [address] Progress Note 07/21/25 1406 MR#: [id number] Acct: [id number] Name: ZABRINA HSU Rep #:[id number] : [...] 83.2 H, Lymph % (Auto) 8.8 L, [place] % (Auto) 5.8, Eos % (Auto) 0.1, [...] prophylaxis: Lovenox Charges/Coding Visit Charges Inpatient E&M: 96971 Subs Hosp L2 07/21/25 5283 <Electronically signed by Renee Encarnacion MD> Renee Encarnacion MD Cosigner Signature (if applicable): CC: ~ Signed [facility] Work Phone: progress note Author Earline Camargo [facility] Note Date/Time July 21, 2025 9:09pm [facility] Medical Records Department [address] [place] [address] Progress Note - Hospitalist 07/21/252058 MR#: [id number] Acct: [id number] Name: ZABRINA HSU Rep #:[id number] : [...] 0.33 07/21/252108 <Electronically signed by Earline Camargo DYEHOUSE WORKER-C> Cosigner Signature (if applicable): CC: ~ Signed [facility] Work Phone: Prolfrgo note Author Eleazar Valle [facility] Note Date/Time July 22, 2025 8:48am [facility] Medical Records Department [address] [facility] [place] [address] Progress Note - Inspector And Tester 07/22/25 0843 MR#: [id number] Acct: [id number] Name: ZABRINA HSU Rep #:[id number] : [...] of diet. This note was generated with [employer] software. It may contain incorrectwords, spelling, and [...] 84.7 H, Lymph % (Auto) 8.4 L, [place] % (Auto) 4.1, Eos % (Auto) 0.0, [...] in the left upper lung. Reading Location: [facility] Chest X-Ray 07/17/25 05:10 IMPRESSION: Tubes and lines in position. There are perihilar infiltrates in the right and left, improved. Reading Location: [facility] Physical Exam Const alert, oriented x3 [...] affect normal Charges/Coding Visit Charges Inpatient E&M: 65287 Subs Hosp L3 07/22/25 0848 <Electronically signed by Eleazar Valle DO> Cosigner Signature (if applicable): CC: ~ Signed [facility] Work Phone: Progress note Author Renee Encarnacion [facility] Note Date/Time July 22, 2025 6:37pm [facility] Medical Records Department [address] [place] [address] Progress Note 07/22/25 1112 MR#: [id number] Acct: [id number] Name: ZABRINA HSU Rep #:[id number] : [...] 84.7 H, Lymph % (Auto) 8.4 L, [place] % (Auto) 4.1, Eos % (Auto) 0.0, [...] prophylaxis: Lovenox Charges/Coding Visit Charges Inpatient E&M: 76328 Subs Hosp L2 07/22/25 175 <Electronically signed by Renee Encarnacion MD> Reene Encarnacion MD Cosigner Signature (if applicable): CC: [...] Signature (if applicable): Date cc: ~* Signed [facility] Work Phone: Reason for referral (narrative)* Consultation (Routine) - Authorized Specialty Diagnoses / Procedures Referred By Contac t Referred To Contact Primary Care Procedures Follow Up In Primary Care - Established Elvin Blanc PA-C [address] [facility] [place] [address] Referral ID Status Reason Start Date Expiration Date V isits Requested Visits Authorized [id number] Authorized 09/18/2023 09/17/2024 1 1 [facility] Work Phone: Reason for referral (narrative)No reason for [facility] Work Phone: Summary Purpose Family History No Family History Records Found Relationship Condition Age at Onset Recorded Date/T dajuan mother Diabetes mellitus Unknown Advance Directives No Advanced Directives Records Found Advance Directive Response Recorded Date/ Time Do you have a Healthcare Power of Dispensing Operator? No July 16, 2025 7:58am Chief Complaint and Reason for Visit Chief Complaint Admit Date AE COPD, ZPCZD-TC-EZQGPLM RESP FAILURE S [facility] 2024 6:21am AE COPD, PGKHX-WW-IDGFGFE RESP FAILURE S [facility] 2024 8:12am AE COPD, XHWID-GZ-THJHUCV RESP FAILURE S [facility] 2024 12:00pm AE COPD, YGDAA-PE-JEAYNDS RESP FAILURE S [facility] 2024 7:04am AE COPD, OLWCE-YW-DGQCYNJ RESP FAILURE S [facility] 2024 7:37am AE COPD, WAKWP-ND-OGRMMSC RESP FAILURE S [facility] 2024 7:39am AE COPD, HSBJN-QA-MDSVFHT RESP FAILURE S [facility] 2024 8:07am AE COPD, FGOWE-OR-APTELHU RESP FAILURE S [facility] 2024 7:58am AE COPD, NQBJO-KZ-CONZAPD RESP FAILURE S [facility] 2024 8:36am AE COPD, ECHXJ-BK-GPRGHOI RESP FAILURE S [facility] 2024 7:34am AE COPD, OSZZZ-OE-BFBELPR RESP FAILURE S [facility] 2024 2:06pm AE COPD, FYSTJ-NW-GVRSKHH RESP FAILURE S [facility]2024 8:43am AE COPD, WUUPW-RX-LZBJVMS RESP FAILURE S [facility] 2024 11:12am AE COPD, ISPXQ-YC-DMCNIOX RESP FAILURE S [facility] 2024 12:15pm Reason for Visit Admit Date Acute hypoxic on chronic hypercapnic res piratory failure July 16, 2025 6:21am Acute respiratory failure with hypoxia a nd hypercapnia July 16, 2025 6:21am Counseling regarding goals of care Dequan banner 2024 6:21am Elevated troponin July 16, 2025 [...] 6:21am Chief Complaint Admit Date AE COPD, RDSOS-OG-GSWLZBB RESP FAILURE S [facility]2024 6:21am AE COPD, SPKNY-UY-TBEPXIT RESP FAILURE S [facility] 2024 8:12am AE COPD, TCAGH-YF-RZKTQAX RESP FAILURE S [facility] 2024 12:00pm AE COPD, XXOJM-UC-ZOFYCSN RESP FAILURE S [facility]2024 7:04am AE COPD, IRVNE-TY-KIGUGLU RESP FAILURE S [facility] 2024 7:37am AE COPD, XEWHB-QJ-CCUKFFS RESP FAILURE S [facility] 2024 7:39am AE COPD, GSLBY-VI-OCIGIWF RESP FAILURE S eptember 2024 8:07am AE COPD, DJOAQ-EB-BTZTYIL RESP FAILURE S eptember 2024 7:58am AE COPD, GYWKJ-TF-ZYKHXEO RESP FAILURE S eptember 2024 8:36am AE COPD, BIYZG-OJ-GBCKPYD RESP FAILURE S eptember 2024 7:34am AE COPD, JBHVF-GZ-VWSFIWK RESP FAILURE S eptember 2024 2:06pm AE COPD, ONMJM-LF-MRUOCEC RESP FAILURE S eptember 2024 8:43am AE COPD, PCOJY-LX-DGSXHSE RESP FAILURE S eptember 2024 11:12am AE COPD, TDTPX-GT-EMJUGMK RESP FAILURE S eptember 2024 12:15pm AE COPD, PISCK-MH-ICUNRZB RESP FAILURE O ctober 2024 7:38am AE COPD, HEBCY-YT-EGVVBMF RESP FAILURE O ctober 2024 12:12pm AE COPD, XMAGY-FF-HGPXYVE RESP FAILURE O ctober 2024 5:12pm AE COPD, PQQNE-DI-JJVSYJA RESP FAILURE O ctober 2024 3:15pm AE COPD, WEQLP-SI-WOMJHTY RESP FAILURE O ctober 2024 12:43pm AE COPD, EJNXD-ZV-GEYDBGN RESP FAILURE O ctober 2024 4:09pm Reason [...] section and content) DATE CREATED AUTHOR 11/04/2020 [facility] DATE CREATED AUTHOR AUTHOR'S ORGANIZ ATION 09/03/2023 [facility] ([place]) DATE CREATED AUTHOR AUTHOR'S ORGANIZ ATION 09/22/2023 [facility] ([place]) DATE CREATED AUTHOR AUTHOR'S ORGANIZ ATION 07/10/2025 [facility] DATE CREATED AUTHOR AUTHOR'S ORGANIZ ATION 07/11/2025 [facility] DATE CREATED AUTHOR AUTHOR'S ORGANIZ ATION 08/25/2025 [facility] DATE CREATED AUTHOR AUTHOR'S ORGANIZ ATION 08/27/2025 [facility] Patient Care team informatio n (unrecognized section and content) Estate Planning Director Relationship Specialty Start Date End Date Elvin Blanc PA-C [address] [place] [address] PCP - General Internal Medicine 09/12/23 Fercho Villaseñor DO [address] [place] [address] PCP - [employer]age PCP 07/23/23 Estate Planning Director Relationship Specialty Start Date End Date Kenzie Fontana, BUSINESS DEVELOPMENT DIRECTOR-SCALE MODEL MAKER [address] [facility] [place] [address] PCP - General Family Medicine 10/03/24 Team Status: Active Member Role/Relationship Status Dates Alfonso Ozuna DYEHOUSE WORKER, DYEHOUSE WORKER-C Primary care physician Active Team Status: Active Member Role/Relationship Status Dates Alfonso Ozuna DYEHOUSE WORKER, DYEHOUSE WORKER-C Primary care physician Active Start: July 16, [...] Active Start: July 16, 2025 Apple Carvalho DYEHOUSE WORKER-C Nurse Practitioner Active Start: June Team Status: Active Member Role/Relationship Status Renita Ozuna NP, DYEHOUSE WORKER-C Primary care physician Active Start: July 16, [...] Active Member Role/Relationship Status Dates Alfonso Ozuna DYEHOUSE WORKER, DYEHOUSE WORKER-C Primary care physician Active Start: July 16, 2025 Dr. Dashawn Christiansen MD Attending physician Active Start: July 16, 2025 Team Status: Active Member Role/Relationship Status Dates Alfonso Ozuna DYEHOUSE WORKER, DYEHOUSE WORKER-C Primary care physician Active Start: July 16, [...] Active Member Role/Relationship Status Dates Alfonso Ozuna DYEHOUSE WORKER, DYEHOUSE WORKER-C Primary care physician Active Start: July 17, [...] Practitioner Active Start: July 17, 2025 Dr. Ctaia Mercer MD Nurse Practitioner Active Start: June Dr. Mau Hoover MD Nurse Practitioner Active Start: July 17, 2025 Dr. Gerard Santos DO Attending physician Active Start: July 17, 2025 Dr. Gerard Santos DO Nurse Practitioner Active Start: July 17, 2025 Team Status: Active Member Role/Relationship Status Dates Alfonso Ozuna DYEHOUSE WORKER, DYEHOUSE WORKER-C Primary care physician Active Start: July 17, [...] Status: Active Member Role/Relationship Status Renita Ozuna DYEHOUSE WORKER, DYEHOUSE WORKER-C Primary care physician Active Start: July 18, [...] Active Member Role/Relationship Status Dates Alfonso Ozuna DYEHOUSE WORKER, DYEHOUSE WORKER-C Primary care physician Active Start: July 18, [...] Active Start: July 18, 2025 Dr. Harpreet Gary MD Nurse Practitioner Active Start: July 18, [...] Status: Active Member Role/Relationship Status Renita Ozuna DYEHOUSE WORKER, DYEHOUSE WORKER-C Primary care physician Active Start: July 19, [...] Active Start: July 19, 2025 Dr. Deepa Blanoc MD Nurse Practitioner Active Start: July 19, [...] Member Role/Relationship Status Dates Alfonso Ozuna NP, DYEHOUSE WORKER-C Primary care physician Active Start: July 20, [...] Active Member Role/Relationship Status Dates Alfonso Ozuna DYEHOUSE WORKER, DYEHOUSE WORKER-C Primary care physician Active Start: July 21, [...] Active Member Role/Relationship Status Dates Alfonso Ozuna DYEHOUSE WORKER, DYEHOUSE WORKER-C Primary care physician Active Start: July 21, [...] Status: Active Member Role/Relationship Status Renita Ozuna DYEHOUSE WORKER, DYEHOUSE WORKER-C Primary care physician Active Start: July 22, [...] Active Start: July 22, 2025 Dr. Gerard Snatos , Nurse Practitioner Active Start: July 22, 2025 Apple Carvalho NP-C Nurse Practitioner Active Start: June Team Status: Active Member Role/Relationship Status Dates Alfonso Ozuna NP, DYEHOUSE WORKER-C Primary care physician Active Start: July 22, [...] Member Role/Relationship Status Dates Alfonso Ozuna NP, DYEHOUSE WORKER-C Primary care physician Active Start: July 22, [...] Active Start: July 22, 2025 Apple Carvalho DYEHOUSE WORKER-C Attending physician Active Start: June Apple Carvalho NP-C Nurse Practitioner Active Start: June Team Status: Inactive Member Role/Relationship Status Renita Ozuna NP, DYEHOUSE WORKER-C Primary care physician Active Start: July 16, [...] End: July 26, 2025 Earline Camargo , DYEHOUSE WORKER-C Nurse Practitioner Active S tart: July 16, 2025 End: July 26, 2025 Analy Davis DYEHOUSE WORKER-C Nurse Practitioner Active Start: July 16, 2025 End: July 26, 2025 SHEILA Ellington Nurse Practitioner Active Start: July 16, 2025 End: July 26, 2025 Apple Carvalho DYEHOUSE WORKER-C Nurse Practitioner Active Start: June End: July [...] Status: Active Member Role/Relationship Status Renita Ozuna DYEHOUSE WORKER, DYEHOUSE WORKER-C Primary care physician Active Start: July 16, [...] Status: Active Member Role/Relationship Status Renita Ozuna DYEHOUSE WORKER, DYEHOUSE WORKER-C Primary care physician Active Start: July 17, [...] Active Member Role/Relationship Status Dates Alfonso Ozuna DYEHOUSE WORKER, DYEHOUSE WORKER-C Primary care physician Active Start: July 18, [...] Active Member Role/Relationship Status Dates Alfonso Ozuna DYEHOUSE WORKER, DYEHOUSE WORKER-C Primary care physician Active Start: July 21, [...] Status: Active Member Role/Relationship Status Renita Ozuna DYEHOUSE WORKER, DYEHOUSE WORKER-C Primary care physician Active Start: July 22, [...] Member Role/Relationship Status Renita Alfonso Ozuna PANKAJ, DYEHOUSE WORKER-C Primary care physician Active Start: July 23, 2025 Dr. Bernardo Sharif , DO Emergency Departm ent Physician Active Start: July 23, 2025 Dr. Jack Zuniga , DO Admitting physician Active Start: July 23, 2025 Dr. Jack uZniga , DO Nurse Practitioner Active Start: July [...] Active Start: July 23, 2025 Apple Carvalho DYEHOUSE WORKER-C Nurse Practitioner Active Start: July 23, 2025 Team Status: Active Member Role/Relationship Status Dates Alfonso Ozuna NP, DYEHOUSE WORKER-C Primary care physician Active Start: July 23, [...] Active Start: July 23, 2025 Apple Carvalho DYEHOUSE WORKER-C Nurse Practitioner Active Start: July 23, 2025 [...] Practitioner Active Start: July 23, 2025 Dr. Rtuh Altamirano MD Nurse Practitioner Active Start: July [...] Active Member Role/Relationship Status Renita Ozuna NP, DYEHOUSE WORKER-C Primary care physician Active Start: July 24, [...] Active Start: July 24, 2025 Dr. Danish Crafword , DO Nurse Practitioner Active Start: July 24, 2025 Earline Camargo NP-C Nurse Practitioner Active S tart: July 24, 2025 Analy Davis , DYEHOUSE WORKER-C Nurse Practitioner Active Start: July 24, 2025 [...] Active Member Role/Relationship Status Dates Alfonso Ozuna DYEHOUSE WORKER, DYEHOUSE WORKER-C Primary care physician Active Start: July 25, [...] Active Start: July 25, 2025 Earline Camargo DYEHOUSE WORKER-C Nurse Practitioner Active S tart: July 25, 2025 Analy Davis DYEHOUSE WORKER-C Nurse Practitioner Active Start: July 25, 2025 SHEILA Ellington Nurse Practitioner Active Start: July 25, 2025 Apple Carvalho DYEHOUSE WORKER-C Nurse Practitioner Active Start: July 25, 2025 [...] Active Start: July 25, 2025 Dr. Dmitri Jamse MD Nurse Practitioner Active S tart: July [...] Member Role/Relationship Status Dates Alfonso Ozuna NP, DYEHOUSE WORKER-C Primary care physician Active Start: July 26, [...] Active Start: July 26, 2025 Dr. Reid Mruillo MD Nurse Practitioner Active Start: July 26, [...] Active Member Role/Relationship Status Dates Alfonso Ozuna DYEHOUSE WORKER, DYEHOUSE WORKER-C Primary care physician Active Start: July 26, 2025 Dr. Bernardo Sharfi , DO Emergency Departm ent Physician Active [...] Active Start: July 26, 2025 Earline Camargo DYEHOUSE WORKER-C Nurse Practitioner Active S tart: July 26, 2025 Analy Davis DYEHOUSE WORKER-C Nurse Practitioner Active Start: July 26, 2025 SHEILA Ellington Nurse Practitioner Active Start: July 26, 2025 Apple Carvalho DYEHOUSE WORKER-C Nurse Practitioner Active Start: July 26, 2025 [...] as a new patient and transferring from [place].Patient dx with COPD, seen in ER last [...] BE BASED ON THE PRIMARY CLINICAL RECORDS. [email or web address] provides no warranty or guarantee of the accuracy or completeness of information in this document.
[2025-10-07 23:04] LABS: Troponin T High Sens 2 HR 106 ng/L (<=14)
--- OUTSIDE RECORDS SUMMARY | 2025-10-07 23:40 | XMS RPT_ITS | CCD ---
Author Organization [facility] Care Team Providers Care Mixing Machine Attendant Name Role Phone Opal Brambila Alpa Unavailable [...] Consulting Unavailable ROSINA BRO MD Consulting Unavailable TNOG ROBB MD Consulting Unavailable Marizol JOHNSON-Kenzie CHEN [...] Unavailable KENZIE FONTANA Primary Care Unavailable Laith RN VASCULAR-C, Alfonso Primary Care Physician Dr. Bernardo Sharif DO Emergency Department Physi sarah Zuniga DO, Dr. Santiago Admitting Physician Candy vailable Zuniga DO, Dr. Santiago Nurse Practitioner Unav ailable Juni PAREDES, Dr. Rodríguez Nurse Practitioner [phone] Radhika PAREDES, Dr. Flores Nurse Practitioner [phone] Fly PAREDES, Dr. Evans Nurse Practitioner Leonard GONG, Dr. Bush Nurse Practitioner Tavo PAREDES, Dr. Jack Chacko Nurse Practitioner [phone] Lidia PAREDES, Dr. Mathews Nurse Practitioner Marina PAREDES, Dr. Mullins Nurse Practitioner [phone] Alondra PAREDES, Dr. Brand Nurse Practitioner Jacob PAREDES, Dr. Rizvi Nurse Practitioner [phone] Jose PAREDES, Dr. Silva Nurse Practitioner [phone] Hernan PAREDES, Dr. Benavides Nurse Practitioner [phone] Dr. Laura Rodas MD Nurse Practitioner [phone] Adarsh PAREDES, Dr. Miranda Nurse Practitioner Unavail alexandria Blanco MD, Dr. Arenas Nurse Practitioner [phone] Jose PAREDES, Dr. Chirinos Nurse Practitioner [phone] Lucero PAREDES, Dr. Hooper Nurse Practitioner Juan Luis PAREDES, Dr. Gupta Nurse Practitioner [phone] Stephanie GONG, Dr. Christine Nurse Practitioner Kaur PAREDES, Dr. Pulido Nurse Practitioner [phone] Terrell PAREDES, Dr. Horne Nurse Practitioner Linda GONG, Dr. Navarro Nurse Practitioner [phone] Maynor PAREDES, Dr. Mays Nurse Practitioner Ruslan PAREDES, Dr. Bardales Nurse Practitioner Kiko PAREDES, Dr. León Nurse Practitioner Alysha PAREDES, Dr. Renee Rossi Attending Physician Danielle GONG, Dr. Gee Nurse Practitioner Maia RN VASCULAR-C, Apple Nurse Practitione r Leonard GONG, Dr. Bush Attending Physician Kuldip PAREDES, Dr. Tamez Attending Physician Danielle GONG, Dr. Gee Attending Physician Alysha PAREDES, Dr. Renee Rossi Nurse Practitioner Maia RN VASCULAR-C, Apple Attending Physici an Cole PAREDES, Dr. Jenkins Nurse Practitioner Yvette GONG, Dr. Peng Nurse Practitioner Raman RN VASCULAR-C, Earline Nurse Practitioner Doc RN VASCULAR-C, Analy Nurse Practitioner Lakisha Orozco Nurse Practitioner Espinoza PAREDES, Dr. Argueta Nurse Practitioner Dr. Gerard Santos DO Referring Provider Alysha PAREDES, Dr. Renee Rossi Referring Provider Espinoza PAREDES, Dr. Argueta Attending Physician Jack Zuniga Admitting Unavailable Gerard Santos Attending Unavailable Laith RN VASCULAR, Alfonso Primary Care Unavailable Marcos Alfredo Consulting Unavailable Mark Garrido Consulting Unavailable Nathan Bill Consulting Unavailable Eleazar Valle Consulting Unavailable Jack Vo Consulting Unavailable eRid Murillo Consulting Unavailable Harpreet Gray Consulting Unavailable [...] Consulting Unavailable Espinoza Nagapradee Consulting Unavailsonu Ozuna RN VASCULAR, Alfonso Primary Care Unavailable Dashawn Christiansen Attending Unavailable Laith RN VASCULAR, Alfonso Primary Care Unavailable Laith RN VASCULAR, Alfonso Referring Unavailable Adriana Wiggins Attending Unavailable Laith RN VASCULAR, Alfonso Primary Care Unavailable Jack Zuniga Admitting [...] Emmett Consulting Unavailable Dietrich, Sujoy Consulting Unavailable Malcolm, Soleyah Consulting Unavailable Fernstrheath, Ramon Consulting Unavailable [...] NKDA; 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: [NKDA] allergy to substance 7 [employer] Work Phone: NEGATED: Highlighted row has been ruled out! (1 source) Observed no known allergies at [facility] No Known Allergies propensity to adverse reactions [employer] Work Phone: Medications Current Medications Medication Drug Class(es) Dates Sig (Normalized) Sig (Original) [id number] 200 actuat albuterol 0.09 mg/actuat metered dose inhaler (9 sources) beta2-Adrenergic Agonist Start: 07-08-2019 End: 12-23-2020 Start: 01-12-2017 PROVENTIL HFA 108 (90 Base) MCG/ACT AERS every 6 hrs as needed ALBUTEROL SULFATE [id number] Juanjo Marr MD take 2 puff(s) by [...] wheezing, # 8.5 gram(s), 3 Refill(s), Pharmacy: [facility], 157.5, cm, 09/02/23 [...] wheezing, # 8.5 gram(s), 3 Refill(s), Pharmacy: [facility], 157.5, cm, 09/02/23 [...] wheezing, # 8.5 gram(s), 3 Refill(s), Pharmacy: [facility], 157.5, cm, 09/02/23 [...] One tablet by mouth daily ATORVASTATIN CALCIUM [id number] Rashida Hampton RN brimonidine tartrate 2 mg/ml [...] 180 tab(s), 0 Refill(s), Pharmacy: [facility], 157.5, cm, 11/04/24 11:10:00 EST, Height, kg, 11/04/24 11:10:00 EST, Dosing Weight Start Date: 11/28/24 Status: Ordered Medication Dispense Status: Completed Quantity: 180.0 Unit: tab(s) Total Allowed Fills: 1 Fills Dispensed: 0 Start: 01-22-2024 Coreg 6.25 mg oral tablet Dose : 6.25 mg = 1 tab(s), Oral, BID, # 180 tab(s), 3 Refill(s), Pharmacy: [facility], 157.5, cm, 01/22/24 16:06:00 EDT, Height, kg, [...] 90 tab(s), 0 Refill(s), Pharmacy: [facility], 157.5, cm, 03/05/25 15:36:00 EDT, Height, kg, 03/05/25 15:36:00 EDT, Dosing Weight Start Date: 05/16/25 Status: Ordered Medication Dispense Status: Completed Quantity: 90.0 Unit: tab(s) Total Allowed Fills: 1 Fills Dispensed: 0 Start: 09-02-2024 Zetia 10 mg or al tablet Dose : 10 mg = 1 tab(s), Oral, qDay, # 90 tab(s), 1 Refill(s), Pharmacy: [facility], 157.5, cm, 02/22/24 16:04:00 EDT, Height, kg, 02/22/24 16:04:00 EDT, Dosing Weight Start Date: 09/02/24 Status: Ordered Quantity: 90.0 Unit: tab(s) Repeat number: 2 30 actuat fluticasone furoate 0.1 mg/actuat / umeclidinium 0.0625 mg/actuat / vilanterol 0.025 mg/actuat dry powder inhaler (2 sources) Anticholinergic, Corticosteroid, beta2-Adrenergic Agonist take 3 puff(s) by inhalation once daily bkbstiyafmn-mpeacnxzv-oyvyyxzm (Trelegy Ellipta) 100-62.5-25 mcg blister with device Inhale 3 puffs once daily. Active furosemide 40 mg oral tablet (8 sources) Loop Diuretic Sta rt: Start: 06-25-2025 End: 12-22-2025 Lasix 40 mg oral tablet Dose : 40 mg = 1 tab(s), Oral, qDay, # 90 tab(s), 1 Refill(s), Pharmacy: [facility], 160, cm, 06/16/25 9:24:00 EDT, [...] BIDM, # 60 tab(s), 3 Refill(s), Pharmacy: [facility], 157.5, cm, 09/02/23 [...] tablet by mouth twice daily METOPROLOL TARTRATE [id number] Rashida Hampton RN Start: 01-06-2017 take 0.5 tablet by m out once daily METOPROLOL SUCCINATE ER 25 MG [id number] One-half tablet by mouth daily METOPROLOL SUCCINATE [id number] Juanjo Marr MD montelukast 10 mg oral [...] 3 as needed for chest pain. NITROGLYCERIN [id number] Juanjo Marr MD OXcarbazepine 150 mg oral [...] once daily OXYBUTYNIN CHLORIDE ER 10 MG [id number] One tablet by mouth daily (HOLD) OXYBUTYNIN CHLORIDE [id number] Sharron Nguyen RN microencapsulated potassium chloride 20 meq extended release oral tablet (2 sources) Start: 06-20-2024 KlorGhulam M20 o ral tablet, extended release Dose : 20 mEq = 1 tab(s), Oral, BID, # 60 tab(s), 5 Refill(s), Pharmacy: [facility] [place], 157.5, cm, 02/22/24 16:04:00 EDT, Height, kg, [...] qDay, # 3 tab(s), 0 Refill(s), Pharmacy: [facility] [place], 160, cm, 06/16/25 9:24:00 EDT, Height, kg, [...] qDay, # 60 tab(s), 3 Refill(s), Pharmacy: [facility], 157.5, cm, 09/02/23 6:47:00 EST, Height, kg, 09/02/23 6:47:00 EST, Dosing Weight Start Date: 09/06/23 Status: Ordered sacubitril 97 mg / valsartan 103 mg oral tablet (3 sources) Angiotensin 2 Receptor Cherelle Start: 03-06-2025 take 1 tablet by mouth twice daily Entresto 97 mg-103 mg oral tablet Dose = 1 tab(s), Oral, BID, # 180 tab(s), 2 Refill(s), Pharmacy: [facility] [place], 157.5, cm, 03/05/25 15:36:00 EDT, Height, kg, 03/05/25 15:36:00 EDT, Dosing Weight Start Date: 03/06/25 Status: Ordered Medication Dispense Status: Completed Quantity: 180.0 Unit: tab(s) Total Allowed Fills: 3 Fills Dispensed: 0 Start: 01-22-2024 take 1 tablet by santos th twice daily Entresto 49 mg-51 mg oral tablet Dose = 1 tab(s), Oral, BID, # 180 tab(s), 3 Refill(s), Pharmacy: [facility] [place], 157.5, cm, 01/22/24 16:06:00 EDT, Height, kg, 01/22/24 16:06:00 EDT, Dosing Weight Start Date: 01/22/24 Status: Ordered Quantity: 180.0 Unit: tab(s) Repeat number: 4 Start: 09-06-2023 take 1 tablet by santos th twice daily Entresto 24 mg-26 mg oral tablet Dose = 1 tab(s), Oral, BID, # 60 tab(s), 3 Refill(s), Pharmacy: [facility], 157.5, cm, 09/02/23 [...] swallow)., # 60 EA, 3 Refill(s), Pharmacy: [facility], 157.5, cm, 09/02/23 [...] qDayM, # 90 tab(s), 3 Refill(s), Pharmacy: [facility] [place], 160, cm, 06/16/25 9:24:00 EDT, Height, kg, [...] disease (16 sources) Atherosclerotic heart disease of [place] coronary artery without angina pectoris; 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: [Coronary [...] Respiratory failure; insufficiency; arrest (adult) (11 sources) Jikha-go-thwqzgi respiratory failure; 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: [Acute and chronic respiratory [...] 10-09-2024 Episodic Other aftercare (2 sources) Other terminal 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) drug therapy; 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: [Other terminal 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) drug therapy] Onset: 01-06-2017 01-06-2017 Episodic Other aftercare (1 source) correction (current) use of aspirin; 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: [terminal 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) use of aspirin] Onset: 11-04-2024 Episodic Other aftercare (1 source) terminal 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) use of antithrombotics/ant iplatelets; 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: [terminal 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) use of antithrombotics/ant iplatelets] Onset: 11-04-2024 [...] # 0.04 x10EE3/UL Normal 0.00 - 0.10 [facility] Comment on above: Performed By: #### 2 22345 ####[facility],[address] [place] [address] 03032 Basophils/100 WBC (Bld) 0.6 % Normal 0.0 - 2.0 [facility] Comment on above: Performed By: #### 2 31184 ####[facility],[address] [place] [address] CBC + DIFF Normal [facility] Comment on above: Result Comment: CBC- COMPLETE BLOOD COUNT Performed By: #### 2 57376 ####[facility],[address] [place] [address] EO # 0.05 x10EE3/UL Normal 0.00 - 0.50 [facility] Comment on above: Performed By: #### 2 41413 ####[facility],[address] [place], [place] [address] Eosinophils/100 WBC (Bld) 0.7 % Normal 0.0 - 7.0 [facility] Comment on above: Performed By: #### 2 33181 ####[facility],[address] [place] [address] Erythrocyte distribution width (RBC) [Ratio] 15.3 % Normal 12.0 - 15.6 [facility] Comment on above: Performed By: #### 2 95707 ####[facility],[address] [place] [address] Hematocrit (Bld) [Volume fraction] 23.7 % Low 34.0 - 46.0 [facility] Comment on above: Performed By: #### 2 12523 ####[facility],[address] [place], [place] [address] Hemoglobin (Bld) [Mass/Vol] 8.1 g/dL Low 12.0 - 16.0 [facility] Comment on above: Performed By: #### 2 52570 ####[facility],[address] [place] [address] Lymph # 1.58 x10EE3/UL Normal 0.80 - 2.80 [facility] Comment on above: Performed By: #### 2 48098 ####[facility],[address] [place], [place] [address] Lymphocytes/100 WBC (Bld) 21.5 % Normal 20.0 - 45.0 [facility] Comment on above: Performed By: #### 2 79609 ####[facility],[address] [place], [place] [address] MANUAL DIFF N/A Normal [facility] Comment on above: Performed By: #### 2 10001 ####[facility],[address] [place] [address] MCH (RBC) [Entitic mass] 29 pg Normal 27 - 33 [facility] Comment on above: Performed By: #### 2 66887 ####[place] [address] MCHC 34 X10 3 Normal 32 - 36 [facility] Comment on above: Performed By: #### 2 66829 ####[place] [id number] MCV (RBC) [Entitic vol] 86 fL Normal 80 - 99 [facility] Comment on above: Performed By: #### 2 80478 ####[facility],[address] [place] [address] Cloud # 0.84 x10EE3/UL Normal 0.20 - 1.00 [facility] Comment on above: Performed By: #### 2 26287 ####[place] [id number] MONOS % 11.5 % High 0.0 - 10.0 [facility] Comment on above: Performed By: #### 2 19665 ####[facility],[address] [place] [address] 81663 Morphology Dandy (Bld) [Interp] N/A Normal [facility] Comment on above: Performed By: #### 2 39975 ####[facility],[address] [place] [address] 08017 Neut # 4.85 x10EE3/UL Normal 1.50 - 7.10 [facility] Comment on above: Performed By: #### 2 50605 ####[facility],[address] [place] [address] 48202 Neutrophils/100 WBC (Bld) 65.8 % Normal 46.0 - 76.0 [facility] Comment on above: Performed By: #### 2 64804 ####[facility],[address] [place] [address] 48152 PLATELET 346 x10EE3/UL Normal 150 - 450 [facility] Comment on above: Performed By: #### 2 89069 ####[facility],[address] [place] [address] 33804 Platelet mean volume (Bld) [Entitic vol] 7.5 fL Normal 6.6 - 10.5 [facility] Comment on above: Result Comment: AUTO MATED DIFFERENTIAL Performed By: #### 2 88091 ####[facility],[address] [place] [address] 73572 RBC 2.75 x 10EE6/UL Low 4.10 - 5.30 [facility] Comment on above: Performed By: #### 2 70393 ####[facility],[address] [place] [address] 97211 WBC 7.4 x 10EE3/UL Normal 4.5 - 10.8 [facility] Comment on above: Performed By: #### 2 45442 ####[facility],[address] [place] [address] 63392 CMP with eGFRon 08-01-2025 AGE 70 years Normal [facility] Comment on above: Performed By: #### 2 71298 ####[facility],[address] [place] [address] 35677 Albumin [Mass/Vol] 2.1 g/dL Low 3.4 - 5.0 [facility] Comment on above: Performed By: #### 2 56154 ####[facility],[address] [place] [address] 03096 Albumin/Globulin [Mass ratio] 0.7 {ratio} Low 0.9 - 1.6 [facility] Comment on above: Performed By: #### 2 83930 ####[facility],[address] [place] [address] 31827 ALK PHOS 53 U/L Normal 46 - 116 [facility] Comment on above: Performed By: #### 2 99863 ####[facility],[address] [place] [address] 72182 ALT [Catalytic activity/Vol] 32 U/L Normal 16 - 63 [facility] Comment on above: Performed By: #### 2 43673 ####[facility],[address] [place] [address] 96007 Anion gap [Moles/Vol] 6 mmol/L Low 10 - 20 [facility] Comment on above: Performed By: #### 2 84549 ####[facility],[address] [place] [address] 81822 AST [Catalytic activity/Vol] 25 U/L Normal 13 - 39 [facility] Comment on above: Performed By: #### 2 89260 ####[facility],[address] [place] [address] 80440 B/C RATIO 19 ratio Normal 0 - 30 [facility] Comment on above: Performed By: #### 2 90013 ####[facility],[address] [place] [address] 64737 Bilirubin [Mass/Vol] 0.3 mg/dL Normal 0.2 - 1.0 [facility] Comment on above: Performed By: #### 2 96382 ####[facility],[address] [place] [address] 54025 Calcium [Mass/Vol] 8.0 mg/dL Low 8.5 - 10.1 [facility] Comment on above: Performed By: #### 2 26929 ####[facility],[address] [place] [address] 15471 Chloride [Moles/Vol] 99 mmol/L Normal 98 - 107 [facility] Comment on above: Performed By: #### 2 19262 ####[facility],[address] [place] [address] 83376 CMP with eGFR Normal [facility] Comment on above: Result Comment: COMP REHENSIVE METABOLIC PANEL Performed By: #### 2 59744 ####[facility],[address] [place] [address] 05862 CO2 [Moles/Vol] 33.8 mmol/L High 21.0 - 32.0 [facility] Comment on above: Performed By: #### 2 14021 ####[facility],[address] [place] [address] 20518 Creatinine [Mass/Vol] 0.62 mg/dL Normal 0.55 - 1.02 [facility] Comment on above: Performed By: #### 2 45790 ####[facility],[address] [place] [address] 45952 GFR/1.73 sq M.predicted among non-blacks MDRD (S/P/Bld) [Vol rate/Area] mL/min/{1.73_m2} Normal 60 - 999 [facility] Comment on above: Performed By: #### 2 84989 ####[facility],[address] [place] [address] 60850 Result Comment: ACCO RDING TO THE NATIONAL KIDNEY DISEASE EDUCATION PROGRAM(NKDE), A NORMAL eGFRIS A VALUE GREATER THAN OR EQUAL TO 60 ML/MIN/1.73 SQ METERS.CHRONIC KIDNEY DISEASE: <60mL/MIN/1.73 SQ METERSKIDNEY FAILURE: <15mL/MIN/1.73 SQ METERSTHIS TEST SHOULD ONLY BE USED FOR PATIENTS 18 YEARS OF AGE AND OLDER. Globulin (S) [Mass/Vol] 2.9 g/dL Normal 1.5 - 3.8 [facility] Comment on above: Performed By: #### 2 90831 ####[facility],[address] [place] [address] 31584 Glucose [Mass/Vol] 84 mg/dL Normal 74 - 106 [facility] Comment on above: Performed By: #### 2 35696 ####[facility],[address] [place] [address] 60082 Potassium [Moles/Vol] 2.9 mmol/L Critically low 3.5 - 5.1 [facility] Comment on above: Result Comment: { CA LLED TO GERARDO WYNN BY CB AT 0939{ READ BACK BY GERARDO WYNN RA AT 0930 Performed By: #### 2 60346 ####[facility],[address] [place] [address] 50183 Protein [Mass/Vol] 5.0 g/dL Low 6.4 - 8.2 [facility] Comment on above: Performed By: #### 2 18432 ####[facility],[address] [place] [address] 65640 Sodium [Moles/Vol] 136 mmol/L Normal 136 - 145 [facility] Comment on above: Performed By: #### 2 24718 ####[facility],[address] [place] [address] 18507 Urea nitrogen [Mass/Vol] 12 mg/dL Normal 7 - 18 [facility] Comment on above: Performed By: #### 2 33076 ####[facility],[address] [place] [address] 77910 Basic Metabolic Profile (BMP )on 07-29-2025 BUN Normal -19 [facility] Comment on above: Result Comment: Canc elled via OM: Order cancelled - Patient discharged Performed By: #### L 500.2500, L100.0100 ####[facility] [address] [place], [address] BUN/CRE Normal 10-20 [facility] Comment on above: Result Comment: Canc elled via OM: Order cancelled - Patient discharged Performed By: #### L 500.2500, L100.0100 ####[facility] [address] [place], [address] Calcium Normal 7.6-11.0 [facility] Comment on above: Result Comment: Canc elled via OM: Order cancelled - Patient discharged Performed By: #### L 500.2500, L100.0100 ####[facility] [address] [place], [address] CL Normal 98-108 [facility] Comment on above: Result Comment: Canc elled via OM: Order cancelled - Patient discharged Performed By: #### L 500.2500, L100.0100 ####[facility] [address] [place], [address] CO2 Normal 21.0-32.0 [facility] Comment on above: Result Comment: Canc elled via OM: Order cancelled - Patient discharged Performed By: #### L 500.2500, L100.0100 ####[facility] [address] [place], [address] CREAT,SERUM Normal 0.70-1.20 [facility] Comment on above: Result Comment: Canc elled via OM: Order cancelled - Patient discharged Performed By: #### L 500.2500, L100.0100 ####[facility] [address] [place], [address] eGFR Normal >60 [facility] Comment on above: Result Comment: Canc elled via OM: Order cancelled - Patient discharged Performed By: #### L 500.2500, L100.0100 ####[facility] [address] [place], [address] GAP Normal 5-15 [facility] Comment on above: Result Comment: Canc elled via OM: Order cancelled - Patient discharged Performed By: #### L 500.2500, L100.0100 ####[facility] [address] [place], [address] GLU Normal 70-99 [facility] Comment on above: Result Comment: Canc elled via OM: Order cancelled - Patient discharged Performed By: #### L 500.2500, L100.0100 ####[facility] [address] [place], [address] Potassium Normal 3.3-5.1 [facility] Comment on above: Result Comment: Canc elled via OM: Order cancelled - Patient discharged Performed By: #### L 500.2500, L100.0100 ####[facility] [address] [place], [address] Basic Metabolic Profile (BMP) Normal 133-145 [facility] Comment on above: Result Comment: Canc elled via OM: Order cancelled - Patient discharged Performed By: #### L 500.2500, L100.0100 ####[facility] [address] [place], [address] CBC W/Diff, Automatedon 10-0 7-2024 Absolute Neut Normal 2.0-7.7 [facility] Comment on above: Result Comment: Canc elled via OM: Order cancelled - Patient discharged Performed By: #### L 500.2500, L100.0100 ####[facility] [address] [place], [address] HCT Normal 37-47 [facility] Comment on above: Result Comment: Canc elled via OM: Order cancelled - Patient discharged Performed By: #### L 500.2500, L100.0100 ####[facility] [address] [place], [address] HGB Normal 12.0-15.0 [facility] Comment on above: Result Comment: Canc elled via OM: Order cancelled - Patient discharged Performed By: #### L 500.2500, L100.0100 ####[facility] [address] [place], [address] MCH Normal 27.0-32.0 [facility] Comment on above: Result Comment: Canc elled via OM: Order cancelled - Patient discharged Performed By: #### L 500.2500, L100.0100 ####[facility] [address] [place], [address] MCHC Normal 32-36 [facility] Comment on above: Result Comment: Canc elled via OM: Order cancelled - Patient discharged Performed By: #### L 500.2500, L100.0100 ####[facility] [address] [place], [address] MCV Normal 81-99 [facility] Comment on above: Result Comment: Canc elled via OM: Order cancelled - Patient discharged Performed By: #### L 500.2500, L100.0100 ####[facility] [address] [place], [address] NEUT% Normal 47-70 [facility] Comment on above: Result Comment: Canc elled via OM: Order cancelled - Patient discharged Performed By: #### L 500.2500, L100.0100 ####[facility] [address] [place], [address] PLT Normal 150-450 [facility] Comment on above: Result Comment: Canc elled via OM: Order cancelled - Patient discharged Performed By: #### L 500.2500, L100.0100 ####[facility] [address] [place], [address] RBC Normal 4.2-5.4 [facility] Comment on above: Result Comment: Canc elled via OM: Order cancelled - Patient discharged Performed By: #### L 500.2500, L100.0100 ####[facility] [address] [place], [address] RDW CV Normal 11.6-14.6 [facility] Comment on above: Result Comment: Canc elled via OM: Order cancelled - Patient discharged Performed By: #### L 500.2500, L100.0100 ####[facility] [address] [place], [address] RDW SD Normal 35.1-43.9 [facility] Comment on above: Result Comment: Canc elled via OM: Order cancelled - Patient discharged Performed By: #### L 500.2500, L100.0100 ####[facility] [address] [place], [address] WBC Normal 4.4-11.0 [facility] Comment on above: Result Comment: Canc elled via OM: Order cancelled - Patient discharged Performed By: #### L 500.2500, L100.0100 ####[facility] [address] [place], [address] Basic Metabolic Profile (BMP )on 07-28-2025 BUN Normal -19 [facility] Comment on above: Result Comment: Canc elled via OM: Order cancelled - Patient discharged Performed By: #### L 500.2500, L100.0100 ####[facility] [address] [place], [address] BUN/CRE Normal -20 [facility] Comment on above: Result Comment: Canc elled via OM: Order cancelled - Patient discharged Performed By: #### L 500.2500, L100.0100 ####[facility] [address] [place], [address] Calcium Normal 7.6-11.0 [facility] Comment on above: Result Comment: Canc elled via OM: Order cancelled - Patient discharged Performed By: #### L 500.2500, L100.0100 ####[facility] [address] [place], [address] CL Normal 98-108 [facility] Comment on above: Result Comment: Canc elled via OM: Order cancelled - Patient discharged Performed By: #### L 500.2500, L100.0100 ####[facility] [address] [place], [address] CO2 Normal 21.0-32.0 [facility] Comment on above: Result Comment: Canc elled via OM: Order cancelled - Patient discharged Performed By: #### L 500.2500, L100.0100 ####[facility] [address] [place], [address] CREAT,SERUM Normal 0.70-1.20 [facility] Comment on above: Result Comment: Canc elled via OM: Order cancelled - Patient discharged Performed By: #### L 500.2500, L100.0100 ####[facility] [address] [place], [address] eGFR Normal >60 [facility] Comment on above: Result Comment: Canc elled via OM: Order cancelled - Patient discharged Performed By: #### L 500.2500, L100.0100 ####[facility] [address] [place], [address] GAP Normal 5-15 [facility] Comment on above: Result Comment: Canc elled via OM: Order cancelled - Patient discharged Performed By: #### L 500.2500, L100.0100 ####[facility] [address] [place], [address] GLU Normal 70-99 [facility] Comment on above: Result Comment: Canc elled via OM: Order cancelled - Patient discharged Performed By: #### L 500.2500, L100.0100 ####[facility] [address] [place], [address] Potassium Normal 3.3-5.1 [facility] Comment on above: Result Comment: Canc elled via OM: Order cancelled - Patient discharged Performed By: #### L 500.2500, L100.0100 ####[facility] [address] [place], [address] Basic Metabolic Profile (BMP) Normal 133-145 [facility] Comment on above: Result Comment: Canc elled via OM: Order cancelled - Patient discharged Performed By: #### L 500.2500, L100.0100 ####[facility] [address] [place], [address] CBC W/Diff, Automatedon 10-0 Absolute Neut Normal 2.0-7.7 [facility] Comment on above: Result Comment: Canc elled via OM: Order cancelled - Patient discharged Performed By: #### L 500.2500, L100.0100 ####[facility] [address] [place], [address] HCT Normal 37-47 [facility] Comment on above: Result Comment: Canc elled via OM: Order cancelled - Patient discharged Performed By: #### L 500.2500, L100.0100 ####[facility] [address] [place], [address] HGB Normal 12.0-15.0 [facility] Comment on above: Result Comment: Canc elled via OM: Order cancelled - Patient discharged Performed By: #### L 500.2500, L100.0100 ####[facility] [address] [place], [address] MCH Normal 27.0-32.0 [facility] Comment on above: Result Comment: Canc elled via OM: Order cancelled - Patient discharged Performed By: #### L 500.2500, L100.0100 ####[facility] [address] [place], [address] MCHC Normal 32-36 [facility] Comment on above: Result Comment: Canc elled via OM: Order cancelled - Patient discharged Performed By: #### L 500.2500, L100.0100 ####[facility] [address] [place], [address] MCV Normal 81-99 [facility] Comment on above: Result Comment: Canc elled via OM: Order cancelled - Patient discharged Performed By: #### L 500.2500, L100.0100 ####[facility] [address] [place], [address] NEUT% Normal 47-70 [facility] Comment on above: Result Comment: Canc elled via OM: Order cancelled - Patient discharged Performed By: #### L 500.2500, L100.0100 ####[facility] [address] [place], [address] PLT Normal 150-450 [facility] Comment on above: Result Comment: Canc elled via OM: Order cancelled - Patient discharged Performed By: #### L 500.2500, L100.0100 ####[facility] [address] [place], [address] RBC Normal 4.2-5.4 [facility] Comment on above: Result Comment: Canc elled via OM: Order cancelled - Patient discharged Performed By: #### L 500.2500, L100.0100 ####[facility] [address] [place], [address] RDW CV Normal 11.6-14.6 [facility] Comment on above: Result Comment: Canc elled via OM: Order cancelled - Patient discharged Performed By: #### L 500.2500, L100.0100 ####[facility] [address] [place], [address] RDW SD Normal 35.1-43.9 [facility] Comment on above: Result Comment: Canc elled via OM: Order cancelled - Patient discharged Performed By: #### L 500.2500, L100.0100 ####[facility] [address] [place], [address] WBC Normal 4.4-11.0 [facility] Comment on above: Result Comment: Canc elled via OM: Order cancelled - Patient discharged Performed By: #### L 500.2500, L100.0100 ####[facility] [address] [place], [address] Basic Metabolic Profile (BMP )on 07-27-2025 BUN Normal -19 [facility] Comment on above: Result Comment: Canc elled via OM: Order cancelled - Patient discharged Performed By: #### L 100.0100, L500.2500 ####[facility] [address] [place], [address] BUN/CRE Normal - [facility] Comment on above: Result Comment: Canc elled via OM: Order cancelled - Patient discharged Performed By: #### L 100.0100, L500.2500 ####[facility] [address] [place], [address] Calcium Normal 7.6-11.0 [facility] Comment on above: Result Comment: Canc elled via OM: Order cancelled - Patient discharged Performed By: #### L 100.0100, L500.2500 ####[facility] [address] [place], [address] CL Normal 98-108 [facility] Comment on above: Result Comment: Canc elled via OM: Order cancelled - Patient discharged Performed By: #### L 100.0100, L500.2500 ####[facility] [address] [place], [address] CO2 Normal 21.0-32.0 [facility] Comment on above: Result Comment: Canc elled via OM: Order cancelled - Patient discharged Performed By: #### L 100.0100, L500.2500 ####[facility] [address] [place], [address] CREAT,SERUM Normal 0.70-1.20 [facility] Comment on above: Result Comment: Canc elled via OM: Order cancelled - Patient discharged Performed By: #### L 100.0100, L500.2500 ####[facility] [address] [place], [address] eGFR Normal >60 [facility] Comment on above: Result Comment: Canc elled via OM: Order cancelled - Patient discharged Performed By: #### L 100.0100, L500.2500 ####[facility] [address] [place], [address] GAP Normal 5-15 [facility] Comment on above: Result Comment: Canc elled via OM: Order cancelled - Patient discharged Performed By: #### L 100.0100, L500.2500 ####[facility] [address] [place], [address] GLU Normal 70-99 [facility] Comment on above: Result Comment: Canc elled via OM: Order cancelled - Patient discharged Performed By: #### L 100.0100, L500.2500 ####[facility] [address] [place], [address] Potassium Normal 3.3-5.1 [facility] Comment on above: Result Comment: Canc elled via OM: Order cancelled - Patient discharged Performed By: #### L 100.0100, L500.2500 ####[facility] [address] [place], [address] Basic Metabolic Profile (BMP) Normal 133-145 [facility] Comment on above: Result Comment: Canc elled via OM: Order cancelled - Patient discharged Performed By: #### L 100.0100, L500.2500 ####[facility] [address] [place], [address] CBC W/Diff, Automatedon 10-0 5-2024 Absolute Neut Normal 2.0-7.7 [facility] Comment on above: Result Comment: Canc elled via OM: Order cancelled - Patient discharged Performed By: #### L 100.0100, L500.2500 ####[facility] [address] [place], [address] HCT Normal 37-47 [facility] Comment on above: Result Comment: Canc elled via OM: Order cancelled - Patient discharged Performed By: #### L 100.0100, L500.2500 ####[facility] [address] [place], [address] HGB Normal 12.0-15.0 [facility] Comment on above: Result Comment: Canc elled via OM: Order cancelled - Patient discharged Performed By: #### L 100.0100, L500.2500 ####[facility] [address] [place], [address] MCH Normal 27.0-32.0 [facility] Comment on above: Result Comment: Canc elled via OM: Order cancelled - Patient discharged Performed By: #### L 100.0100, L500.2500 ####[facility] [address] [place], [address] MCHC Normal 32-36 [facility] Comment on above: Result Comment: Canc elled via OM: Order cancelled - Patient discharged Performed By: #### L 100.0100, L500.2500 ####[facility] [address] [place], [address] MCV Normal 81-99 [facility] Comment on above: Result Comment: Canc elled via OM: Order cancelled - Patient discharged Performed By: #### L 100.0100, L500.2500 ####[facility] [address] [place], [address] NEUT% Normal 47-70 [facility] Comment on above: Result Comment: Canc elled via OM: Order cancelled - Patient discharged Performed By: #### L 100.0100, L500.2500 ####[facility] [address] [place], [address] PLT Normal 150-450 [facility] Comment on above: Result Comment: Canc elled via OM: Order cancelled - Patient discharged Performed By: #### L 100.0100, L500.2500 ####[facility] [address] [place], [address] RBC Normal 4.2-5.4 [facility] Comment on above: Result Comment: Canc elled via OM: Order cancelled - Patient discharged Performed By: #### L 100.0100, L500.2500 ####[facility] [address] [place], [address] RDW CV Normal 11.6-14.6 [facility] Comment on above: Result Comment: Canc elled via OM: Order cancelled - Patient discharged Performed By: #### L 100.0100, L500.2500 ####[facility] [address] [place], [address] RDW SD Normal 35.1-43.9 [facility] Comment on above: Result Comment: Canc elled via OM: Order cancelled - Patient discharged Performed By: #### L 100.0100, L500.2500 ####[facility] [address] [place], [address] WBC Normal 4.4-11.0 [facility] Comment on above: Result Comment: Canc elled via OM: Order cancelled - Patient discharged Performed By: #### L 100.0100, L500.2500 ####[facility] [address] [place], [address] Absolute lymphocyte countOrd ered By: Renee Encarnacion on 07-26-2025 Lymphocytes Auto (Unsp spec) [#/Vol] 2.80 10*3/uL 0.83-4.51 [facility] Anion gap in Serum or Plasma Ordered By: Renee Dominiquejennifer on 07-26-2025 Anion gap [Moles/Vol] 13 mmol/L 5-15 [facility] Automated lymphocyte count a s percentage of total leukocytesOrdered By: Renee Dominiquejennifer on 07-26-2025 Lymphocytes/100 WBC Auto (Unsp spec) 27.0 % 19-41 [facility] BUN/creatinine ratioOrdered By: Reneeteofilo Encarnacion on 07-26-2025 Urea nitrogen/Creatinine [Mass ratio] 30.2 mg/mg High 08-11 [facility] Basic Metabolic Profile (BMP )on 07-26-2025 BUN/CRE 30.2 RATIO High 08-11 [facility] Comment on above: Performed By: #### L 500.2500, L100.0100 ####[facility] [address] [place], [address] Calcium [Mass/Vol] 8.9 mg/dL Normal 7.6-11.0 [facility] Comment on above: Performed By: #### L 500.2500, L100.0100 ####[facility] [address] [place], [address] Chloride [Moles/Vol] 96 mmol/L Low 98-108 [facility] Comment on above: Performed By: #### L 500.2500, L100.0100 ####[facility] [address] [place], [address] CO2 [Moles/Vol] 25.7 mmol/L Normal 21.0-32.0 [facility] Comment on above: Performed By: #### L 500.2500, L100.0100 ####[facility] [address] [place], [address] Creatinine [Mass/Vol] 0.70 mg/dL Normal 0.70-1.20 [facility] Comment on above: Performed By: #### L 500.2500, L100.0100 ####[facility] [address] [place], [address] ECRCL 46.43 ml/min Low 50-250 [facility] Comment on above: Performed By: #### L 500.2500, L100.0100 ####[facility] [address] [place], [address] GAP 13 Normal 5-15 [facility] Comment on above: Performed By: #### L 500.2500, L100.0100 ####[facility] [address] [place], [address] GFR/1.73 sq M.predicted among non-blacks MDRD (S/P/Bld) [Vol rate/Area] 92 mL/min/{1.73_m2} Normal >60 [facility] Comment on above: Result Comment: mL/m in/1.73m2 CKD-EPI Creatinine Equation (2020) Performed By: #### L 500.2500, L100.0100 ####[facility] [address] [place], [address] Glucose [Mass/Vol] 98 mg/dL Normal 70-99 [facility] Comment on above: Performed By: #### L 500.2500, L100.0100 ####[facility] [address] [place], [address] Potassium [Moles/Vol] 2.8 mmol/L Low 3.3-5.1 [facility] Comment on above: Result Comment: Hemo lysis present, Results??could be affected.?? Performed By: #### L 500.2500, L100.0100 ####[facility] [address] [place], [address] Sodium [Moles/Vol] 135 mmol/L Normal 133-145 [facility] Comment on above: Performed By: #### L 500.2500, L100.0100 ####[facility] [address] [place], [address] Urea nitrogen [Mass/Vol] 21 mg/dL High 4-19 [facility] Comment on above: Performed By: #### L 500.2500, L100.0100 ####[facility] [address] [place], [address] Basophil percentageOrdered B y: Renee Encarnacion on 07-26-2025 Basophils/100 WBC (Bld) 0.1 % 0-1 [facility] Bedside Glucoseon 07-26-2025 FINGERSTICK GLU 101 mg/dL Normal 74-106 [facility] Comment on above: Result Comment: CHERYL WILLS OF PATIENT CARE PER NURSING PROTOCOL Performed By: #### L 501.080 ####[facility] [address] [place], [address] CBC W/Diff, Automatedon 10-0 Absolute Lymph 2.80 X10 3/uL Normal 0.83-4.51 [facility] Comment on above: Performed By: #### L 500.2500, L100.0100 ####[facility] [address] [place], [address] Absolute Neut 6.2 X10 3/uL Normal 2.0-7.7 [facility] Comment on above: Performed By: #### L 500.2500, L100.0100 ####[facility] [address] [place], [address] Basophils/100 WBC (Bld) 0.1 % Normal 0-1 [facility] Comment on above: Performed By: #### L 500.2500, L100.0100 ####[facility] [address] [place], [address] Eosinophils/100 WBC (Bld) 0.9 % Normal 0-5 [facility] Comment on above: Performed By: #### L 500.2500, L100.0100 ####[facility] [address] [place], [address] Erythrocyte distribution width (RBC) [Ratio] 14.0 % Normal 11.6-14.6 [facility] Comment on above: Performed By: #### L 500.2500, L100.0100 ####[facility] [address] [place], [address] Hematocrit (Bld) [Volume fraction] 28.6 % Low 37-47 [facility] Comment on above: Performed By: #### L 500.2500, L100.0100 ####[facility] [address] [place], [address] Hemoglobin (Bld) [Mass/Vol] 9.6 g/dL Low 12.0-15.0 [facility] Comment on above: Performed By: #### L 500.2500, L100.0100 ####[facility] [address] [place], [address] IG% 2.900 High 0.0-0.9 [facility] Comment on above: Result Comment: IG% - Immature Granulocytes (promyelocytes, myelocytes andmetamyelocytes) > 1% indicates that a LEFT SHIFT is Present. Performed By: #### L 500.2500, L100.0100 ####[facility] [address] [place], [address] Lymphocytes/100 WBC (Bld) 27.0 % Normal 19-41 [facility] Comment on above: Performed By: #### L 500.2500, L100.0100 ####[facility] [address] [place], [address] MCH (RBC) [Entitic mass] 28.3 pg Normal 27.0-32.0 [facility] Comment on above: Performed By: #### L 500.2500, L100.0100 ####[facility] [address] [place], [address] MCHC (RBC) [Mass/Vol] 33.6 g/dL Normal 32-36 [facility] Comment on above: Performed By: #### L 500.2500, L100.0100 ####[facility] [address] [place], [address] MCV (RBC) [Entitic vol] 84.4 fL Normal 81-99 [facility] Comment on above: Performed By: #### L 500.2500, L100.0100 ####[facility] [address] [place], [address] Monocytes/100 WBC (Bld) 9.7 % Normal 0-10 [facility] Comment on above: Performed By: #### L 500.2500, L100.0100 ####[facility] [address] [place], [address] Neutrophils/100 WBC (Bld) 59.4 % Normal 47-70 [facility] Comment on above: Performed By: #### L 500.2500, L100.0100 ####[facility] [address] [place], [address] Nucleated RBC (Bld) [#/Vol] 0 10*3/uL Normal 0-5 [facility] Comment on above: Performed By: #### L 500.2500, L100.0100 ####[facility] [address] [place], [address] Platelet mean volume (Bld) [Entitic vol] 9.6 fL Normal 6.2-12.0 [facility] Comment on above: Performed By: #### L 500.2500, L100.0100 ####[facility] [address] [place], [address] Platelets (Bld) [#/Vol] 482 10*3/uL High 150-450 [facility] Comment on above: Performed By: #### L 500.2500, L100.0100 ####[facility] [address] [place], [address] RBC (Bld) [#/Vol] 3.39 10*6/uL Low 4.2-5.4 [facility] Comment on above: Performed By: #### L 500.2500, L100.0100 ####[facility] [address] [place], [address] RDW SD 43.3 fl Normal 35.1-43.9 [facility] Comment on above: Performed By: #### L 500.2500, L100.0100 ####[facility] [address] [place], [address] WBC (Bld) [#/Vol] 10.4 10*3/uL Normal 4.4-11.0 [facility] Comment on above: Performed By: #### L 500.2500, L100.0100 ####[facility] [address] [place], [address] Carbon dioxide, total [Moles /volume] in Central venous bloodOrdered By: Renee Encarnacion on 07-26-2025 CO2 [Moles/Vol] 25.7 mmol/L 21.0-32.0 [facility] Chloride assayOrdered By: Viki Encarnacion on 07-26-2025 Chloride [Moles/Vol] 96 mmol/L Low 98-108 [facility] Consultation - Cardiologyon 07-26-2025 Consultation - Cardiology Normal [facility] Eosinophil percentageOrdered By: Renee Encarnacion on 07-26-2025 Eosinophils/100 WBC (Bld) 0.9 % 0-5 [facility] Erythrocyte distribution wid th ratioOrdered By: Renee Encarnacion on 07-26-2025 Erythrocyte distribution width (RBC) [Ratio] 14.0 % 11.6-14.6 [facility] Erythrocyte distribution wid th standard deviationOrdered By: Renee Encarnacion on 07-26-2025 Erythrocyte distribution width (RBC) [Ratio] 43.3 fl 35.1-43.9 [facility] Glomerular filtration rate ( GFR) estimation/1.73 sq m using serum, plasma, or whole bOrdered By: Renee Encarnacion on 07-26-2025 GFR/1.73 sq M.predicted among non-blacks MDRD (S/P/Bld) [Vol rate/Area] 92 mL/min/{1.73_m2} >60 [facility] deOrdered By: Renee Encarnacion on 07-26-2025 Glucose [Mass/Vol] 101 mg/dL 74-106 [facility] Hematocrit Auto (Bld) [Volum e fraction]Ordered By: Reneeteofilo Encarnacion on 07-26-2025 Hematocrit (Bld) [Volume fraction] 28.6 % Low 37-47 [facility] Hemoglobin measurementOrdere d By: Renee Encarnacion on 07-26-2025 Hemoglobin (Bld) [Mass/Vol] 9.6 g/dL Low 12.0-15.0 [facility] Immature granulocytes/100 WB C Auto (Bld)Ordered By: Reneeteofilo Encarnacion on 07-26-2025 Immature granulocytes/100 WBC (Bld) 2.900 % High 0.0-0.9 [facility] MCV (mean corpuscular volume ) determinationOrdered By: Renee Encarnacion on 07-26-2025 MCV (RBC) [Entitic vol] 84.4 fL 81-99 [facility] Magnesiumon 07-26-2025 Magnesium [Mass/Vol] 2.2 mg/dL Normal 1.5-2.2 [facility] Comment on above: Performed By: #### L 501.5200 ####[facility] [address] [place], [address] Magnesium measurement (mass/ volume)Ordered By: Renee Encarnacion on 07-26-2025 Magnesium (Unsp spec) [Mass/Vol] 2.2 mg/dL 1.5-2.2 [facility] Mean corpuscular hemoglobin (MCH) determinationOrdered By: Renee Encarnacion on 07-26-2025 MCH (RBC) [Entitic mass] 28.3 pg 27.0-32.0 [facility] Monocyte percentageOrdered B y: Renee Alysha on 07-26-2025 Monocytes/100 WBC (Bld) 9.7 % 0-10 [facility] Neutrophil percentageOrdered By: Renee Encarnacion on 07-26-2025 Neutrophils/100 WBC (Bld) 59.4 % 47-70 [facility] Platelet countOrdered By: Viki Encarnacion on 07-26-2025 Platelets (Bld) [#/Vol] 482 10*3/uL High 150-450 [facility] Potassium measurement (mass/ volume)Ordered By: Renee Encarnacion on 07-26-2025 Potassium (Unsp spec) [Mass/Vol] 2.8 mmol/L Low 3.3-5.1 [facility] RBC Auto (Bld) [#/Vol]Ordere d By: Renee Encarnacion on 07-26-2025 RBC (Bld) [#/Vol] 3.39 10*6/uL Low 4.2-5.4 [facility] Serum creatinine measurement (mass/volume)Ordered By: Renee Encarnacion on 07-26-2025 Creatinine [Mass/Vol] 0.70 mg/dL 0.70-1.20 [facility] Serum glucose measurement (m ass/volume)Ordered By: Renee Encarnacion on 07-26-2025 Glucose [Mass/Vol] 98 mg/dL 70-99 [facility] Serum or plasma calcium erik urement (mass/volume)Ordered By: Renee Encarnacion on 07-26-2025 Calcium [Mass/Vol] 8.9 mg/dL 7.6-11.0 [facility] Serum or plasma urea nitroge n measurement (mass/volume)Ordered By: Renee Encarnacion on 07-26-2025 Urea nitrogen [Mass/Vol] 21 mg/dL High 4-19 [facility] Sodium levelOrdered By: Renee Encarnacion on 07-26-2025 Sodium [Moles/Vol] 135 mmol/L 133-145 [facility] White blood cell (WBC) count Ordered By: Renee Encarnacion on 07-26-2025 WBC (Bld) [#/Vol] 10.4 10*3/uL 4.4-11.0 [facility] Basic Metabolic Profile (BMP )on 07-25-2025 BUN/CRE 36.1 RATIO High 10-20 [facility] Comment on above: Performed By: #### L 100.0100, L500.2500 ####[facility] [address] [place], [address] Calcium [Mass/Vol] 8.7 mg/dL Normal 7.6-11.0 [facility] Comment on above: Performed By: #### L 100.0100, L500.2500 ####[facility] [address] [place], [address] Chloride [Moles/Vol] 98 mmol/L Normal 98-108 [facility] Comment on above: Performed By: #### L 100.0100, L500.2500 ####[facility] [address] [place], [address] CO2 [Moles/Vol] 26.7 mmol/L Normal 21.0-32.0 [facility] Comment on above: Performed By: #### L 100.0100, L500.2500 ####[facility] [address] [place], [address] Creatinine [Mass/Vol] 0.70 mg/dL Normal 0.70-1.20 [facility] Comment on above: Performed By: #### L 100.0100, L500.2500 ####[facility] [address] [place], [address] ECRCL 46.84 ml/min Low 50-250 [facility] Comment on above: Performed By: #### L 100.0100, L500.2500 ####[facility] [address] [place], [address] GAP 12 Normal 5-15 [facility] Comment on above: Performed By: #### L 100.0100, L500.2500 ####[facility] [address] [place], [address] GFR/1.73 sq M.predicted among non-blacks MDRD (S/P/Bld) [Vol rate/Area] 92 mL/min/{1.73_m2} Normal >60 [facility] Comment on above: Result Comment: mL/m in/1.73m2 CKD-EPI Creatinine Equation (2020) Performed By: #### L 100.0100, L500.2500 ####[facility] [address] [place], [address] Glucose [Mass/Vol] 102 mg/dL High 70-99 [facility] Comment on above: Performed By: #### L 100.0100, L500.2500 ####[facility] [address] [place], [address] Potassium [Moles/Vol] 3.0 mmol/L Low 3.3-5.1 [facility] Comment on above: Performed By: #### L 100.0100, L500.2500 ####[facility] [address] [place], [address] Sodium [Moles/Vol] 137 mmol/L Normal 133-145 [facility] Comment on above: Performed By: #### L 100.0100, L500.2500 ####[facility] [address] [place], [address] Urea nitrogen [Mass/Vol] 25 mg/dL High 4-19 [facility] Comment on above: Performed By: #### L 100.0100, L500.2500 ####[facility] [address] [place], [address] Bedside Glucoseon 07-25-2025 FINGERSTICK GLU 114 mg/dL High 74-106 [facility] Comment on above: Result Comment: CHERYL WILLS OF PATIENT CARE PER NURSING PROTOCOL Performed By: #### L 501.080 ####[facility] [address] [place], [address] FINGERSTICK GLU 163 mg/dL High 74-106 [facility] Comment on above: Result Comment: CHERYL GEMENT OF PATIENT CARE PER NURSING PROTOCOL Performed By: #### L 501.080 ####[facility] [address] [place], [address] FINGERSTICK GLU 129 mg/dL High 74-106 [facility] Comment on above: Result Comment: CHERYL GEMENT OF PATIENT CARE PER NURSING PROTOCOL Performed By: #### L 501.080 ####[facility] [address] [place], [address] FINGERSTICK GLU 111 mg/dL High 74-106 [facility] Comment on above: Result Comment: CHERYL GEMENT OF PATIENT CARE PER NURSING PROTOCOL Performed By: #### L 501.080 ####[facility] [address] [place], [address] CBC W/Diff, Automatedon 10-0 3-2025 Absolute Lymph 2.65 X10 3/uL Normal 0.83-4.51 [facility] Comment on above: Performed By: #### L 100.0100, L500.2500 ####[facility] [address] [place], [address] Absolute Neut 6.4 X10 3/uL Normal 2.0-7.7 [facility] Comment on above: Performed By: #### L 100.0100, L500.2500 ####[facility] [address] [place], [address] Basophils/100 WBC (Bld) 0.2 % Normal 0-1 [facility] Comment on above: Performed By: #### L 100.0100, L500.2500 ####[facility] [address] [place], [address] Eosinophils/100 WBC (Bld) 1.1 % Normal 0-5 [facility] Comment on above: Performed By: #### L 100.0100, L500.2500 ####[facility] [address] [place], [address] Erythrocyte distribution width (RBC) [Ratio] 13.9 % Normal 11.6-14.6 [facility] Comment on above: Performed By: #### L 100.0100, L500.2500 ####[facility] [address] [place], [address] Hematocrit (Bld) [Volume fraction] 29.8 % Low 37-47 [facility] Comment on above: Performed By: #### L 100.0100, L500.2500 ####[facility] [address] [place], [address] Hemoglobin (Bld) [Mass/Vol] 9.9 g/dL Low 12.0-15.0 [facility] Comment on above: Performed By: #### L 100.0100, L500.2500 ####[facility] [address] [place], [address] IG% 1.800 High 0.0-0.9 [facility] Comment on above: Result Comment: IG% - Immature Granulocytes (promyelocytes, myelocytes andmetamyelocytes) > 1% indicates that a LEFT SHIFT is Present. Performed By: #### L 100.0100, L500.2500 ####[facility] [address] [place], [address] Lymphocytes/100 WBC (Bld) 25.5 % Normal 19-41 [facility] Comment on above: Performed By: #### L 100.0100, L500.2500 ####[facility] [address] [place], [address] MCH (RBC) [Entitic mass] 28.7 pg Normal 27.0-32.0 [facility] Comment on above: Performed By: #### L 100.0100, L500.2500 ####[facility] [address] [place], [address] MCHC (RBC) [Mass/Vol] 33.2 g/dL Normal 32-36 [facility] Comment on above: Performed By: #### L 100.0100, L500.2500 ####[facility] [address] [place], [address] MCV (RBC) [Entitic vol] 86.4 fL Normal 81-99 [facility] Comment on above: Performed By: #### L 100.0100, L500.2500 ####[facility] [address] [place], [address] Monocytes/100 WBC (Bld) 10.5 % High 0-10 [facility] Comment on above: Performed By: #### L 100.0100, L500.2500 ####[facility] [address] [place], [address] Neutrophils/100 WBC (Bld) 60.9 % Normal 47-70 [facility] Comment on above: Performed By: #### L 100.0100, L500.2500 ####[facility] [address] [place], [address] Nucleated RBC (Bld) [#/Vol] 0 10*3/uL Normal 0-5 [facility] Comment on above: Performed By: #### L 100.0100, L500.2500 ####[facility] [address] [place], [address] Platelet mean volume (Bld) [Entitic vol] 9.5 fL Normal 6.2-12.0 [facility] Comment on above: Performed By: #### L 100.0100, L500.2500 ####[facility] [address] [place], [address] Platelets (Bld) [#/Vol] 499 10*3/uL High 150-450 [facility] Comment on above: Performed By: #### L 100.0100, L500.2500 ####[facility] [address] [place], [address] RBC (Bld) [#/Vol] 3.45 10*6/uL Low 4.2-5.4 [facility] Comment on above: Performed By: #### L 100.0100, L500.2500 ####[facility] [address] [place], [address] RDW SD 43.7 fl Normal 35.1-43.9 [facility] Comment on above: Performed By: #### L 100.0100, L500.2500 ####[facility] [address] [place], [address] WBC (Bld) [#/Vol] 10.4 10*3/uL Normal 4.4-11.0 [facility] Comment on above: Performed By: #### L 100.0100, L500.2500 ####[facility] [address] [place], [address] CTA Chest W/WO Contraston CTA Chest W/WO Contrast Normal [facility] D-Dimer Quantitative (DVT/PE )on 07-25-2025 D-DIMER QUANT 1.10 FEU/ug/m Invalid Interpretation Code 0.27-0.49 [facility] Comment on above: Result Comment: D-Di adri ELEVATED (>0.49): Additional studies and clinicalassessments are indicated to conclude diagnosis of:Deep Vein Thrombosis (DVT) or Pulmonary EmbolismCRITICAL VALUE CALLED TO RADHA VIRK07/25/25 Yokasta Pratt.RESULTS READ BACK BY SAME. Performed By: #### L 300.8000 ####[facility] [address] [place], [address] Basic Metabolic Profile (BMP )on 07-24-2025 BUN/CRE 41.8 RATIO High 10-20 [facility] Comment on above: Performed By: #### L 100.0100, L500.2500 ####[facility] [address] [place], [address] Calcium [Mass/Vol] 8.8 mg/dL Normal 7.6-11.0 [facility] Comment on above: Performed By: #### L 100.0100, L500.2500 ####[facility] [address] [place], [address] Chloride [Moles/Vol] 97 mmol/L Low 98-108 [facility] Comment on above: Performed By: #### L 100.0100, L500.2500 ####[facility] [address] [place], [address] CO2 [Moles/Vol] 25.1 mmol/L Normal 21.0-32.0 [facility] Comment on above: Performed By: #### L 100.0100, L500.2500 ####[facility] [address] [place], [address] Creatinine [Mass/Vol] 0.85 mg/dL Normal 0.70-1.20 [facility] Comment on above: Performed By: #### L 100.0100, L500.2500 ####[facility] [address] [place], [address] ECRCL 45.04 ml/min Low 50-250 [facility] Comment on above: Performed By: #### L 100.0100, L500.2500 ####[facility] [address] [place], [address] GAP 12 Normal 5-15 [facility] Comment on above: Performed By: #### L 100.0100, L500.2500 ####[facility] [address] [place], [address] GFR/1.73 sq M.predicted among non-blacks MDRD (S/P/Bld) [Vol rate/Area] 73 mL/min/{1.73_m2} Normal >60 [facility] Comment on above: Result Comment: mL/m in/1.73m2 CKD-EPI Creatinine Equation (2020) Performed By: #### L 100.0100, L500.2500 ####[facility] [address] [place], [address] Glucose [Mass/Vol] 102 mg/dL High 70-99 [facility] Comment on above: Performed By: #### L 100.0100, L500.2500 ####[facility] [address] [place], [address] Potassium [Moles/Vol] 3.1 mmol/L Low 3.3-5.1 [facility] Comment on above: Performed By: #### L 100.0100, L500.2500 ####[facility] [address] [place], [address] Sodium [Moles/Vol] 135 mmol/L Normal 133-145 [facility] Comment on above: Performed By: #### L 100.0100, L500.2500 ####[facility] [address] [place], [address] Urea nitrogen [Mass/Vol] 36 mg/dL High 4-19 [facility] Comment on above: Performed By: #### L 100.0100, L500.2500 ####[facility] [address] [place], [address] Bedside Glucoseon 07-24-2025 FINGERSTICK GLU 193 mg/dL High 74-106 [facility] Comment on above: Result Comment: CHERYL WILLS OF PATIENT CARE PER NURSING PROTOCOL Performed By: #### L 501.080 ####[facility] [address] [place], [address] FINGERSTICK GLU 135 mg/dL High 74-106 [facility] Comment on above: Result Comment: CHERYL GEMENT OF PATIENT CARE PER NURSING PROTOCOL Performed By: #### L 501.080 ####[facility] [address] [place], [address] FINGERSTICK GLU 138 mg/dL High 74-106 [facility] Comment on above: Result Comment: CHERYL GEMENT OF PATIENT CARE PER NURSING PROTOCOL Performed By: #### L 501.080 ####[facility] [address] [place], [address] FINGERSTICK GLU 97 mg/dL Normal 74-106 [facility] Comment on above: Result Comment: CHERYL GEMENT OF PATIENT CARE PER NURSING PROTOCOL Performed By: #### L 501.080 ####[facility] [address] [place], [address] CBC W/Diff, Automatedon 10-0 2-5 Absolute Lymph 2.58 X10 3/uL Normal 0.83-4.51 [facility] Comment on above: Performed By: #### L 100.0100, L500.2500 ####[facility] [address] [place], [address] Absolute Neut 5.9 X10 3/uL Normal 2.0-7.7 [facility] Comment on above: Performed By: #### L 100.0100, L500.2500 ####[facility] [address] [place], [address] Basophils/100 WBC (Bld) 0.1 % Normal 0-1 [facility] Comment on above: Performed By: #### L 100.0100, L500.2500 ####[facility] [address] [place], [address] Eosinophils/100 WBC (Bld) 0.6 % Normal 0-5 [facility] Comment on above: Performed By: #### L 100.0100, L500.2500 ####[facility] [address] [place], [address] Erythrocyte distribution width (RBC) [Ratio] 14.4 % Normal 11.6-14.6 [facility] Comment on above: Performed By: #### L 100.0100, L500.2500 ####[facility] [address] [place], [address] Hematocrit (Bld) [Volume fraction] 31.8 % Low 37-47 [facility] Comment on above: Performed By: #### L 100.0100, L500.2500 ####[facility] [address] [place], [address] Hemoglobin (Bld) [Mass/Vol] 10.5 g/dL Low 12.0-15.0 [facility] Comment on above: Performed By: #### L 100.0100, L500.2500 ####[facility] [address] [place], [address] IG% 1.700 High 0.0-0.9 [facility] Comment on above: Result Comment: IG% - Immature Granulocytes (promyelocytes, myelocytes andmetamyelocytes) > 1% indicates that a LEFT SHIFT is Present. Performed By: #### L 100.0100, L500.2500 ####[facility] [address] [place], [address] Lymphocytes/100 WBC (Bld) 26.7 % Normal 19-41 [facility] Comment on above: Performed By: #### L 100.0100, L500.2500 ####[facility] [address] [place], [address] MCH (RBC) [Entitic mass] 28.7 pg Normal 27.0-32.0 [facility] Comment on above: Performed By: #### L 100.0100, L500.2500 ####[facility] [address] [place], [address] MCHC (RBC) [Mass/Vol] 33.0 g/dL Normal 32-36 [facility] Comment on above: Performed By: #### L 100.0100, L500.2500 ####[facility] [address] [place], [address] MCV (RBC) [Entitic vol] 86.9 fL Normal 81-99 [facility] Comment on above: Performed By: #### L 100.0100, L500.2500 ####[facility] [address] [place], [address] Monocytes/100 WBC (Bld) 10.0 % Normal 0-10 [facility] Comment on above: Performed By: #### L 100.0100, L500.2500 ####[facility] [address] [place], [address] Neutrophils/100 WBC (Bld) 60.9 % Normal 47-70 [facility] Comment on above: Performed By: #### L 100.0100, L500.2500 ####[facility] [address] [place], [address] Nucleated RBC (Bld) [#/Vol] 0 10*3/uL Normal 0-5 [facility] Comment on above: Performed By: #### L 100.0100, L500.2500 ####[facility] [address] [place], [address] Platelet mean volume (Bld) [Entitic vol] 8.9 fL Normal 6.2-12.0 [facility] Comment on above: Performed By: #### L 100.0100, L500.2500 ####[facility] [address] [place], [address] Platelets (Bld) [#/Vol] 464 10*3/uL High 150-450 [facility] Comment on above: Performed By: #### L 100.0100, L500.2500 ####[facility] [address] [place], [address] RBC (Bld) [#/Vol] 3.66 10*6/uL Low 4.2-5.4 [facility] Comment on above: Performed By: #### L 100.0100, L500.2500 ####[facility] [address] [place], [address] RDW SD 45.8 fl High 35.1-43.9 [facility] Comment on above: Performed By: #### L 100.0100, L500.2500 ####[facility] [address] [place], [address] WBC (Bld) [#/Vol] 9.7 10*3/uL Normal 4.4-11.0 [facility] Comment on above: Performed By: #### L 100.0100, L500.2500 ####[facility] [address] [place], [address] Basic Metabolic Profile (BMP )on 07-23-2025 BUN/CRE 33.7 RATIO High 10-20 [facility] Comment on above: Performed By: #### L 100.0100, L500.2500 ####[facility] [address] [place], [address] Calcium [Mass/Vol] 8.9 mg/dL Normal 7.6-11.0 [facility] Comment on above: Performed By: #### L 100.0100, L500.2500 ####[facility] [address] [place], [address] Chloride [Moles/Vol] 101 mmol/L Normal 98-108 [facility] Comment on above: Performed By: #### L 100.0100, L500.2500 ####[facility] [address] [place], [address] CO2 [Moles/Vol] 25.7 mmol/L Normal 21.0-32.0 [facility] Comment on above: Performed By: #### L 100.0100, L500.2500 ####[facility] [address] [place], [address] Creatinine [Mass/Vol] 0.68 mg/dL Low 0.70-1.20 [facility] Comment on above: Performed By: #### L 100.0100, L500.2500 ####[facility] [address] [place], [address] ECRCL 51.62 ml/min Normal 50-250 [facility] Comment on above: Performed By: #### L 100.0100, L500.2500 ####[facility] [address] [place], [address] GAP 13 Normal 5-15 [facility] Comment on above: Performed By: #### L 100.0100, L500.2500 ####[facility] [address] [place], [address] GFR/1.73 sq M.predicted among non-blacks MDRD (S/P/Bld) [Vol rate/Area] 93 mL/min/{1.73_m2} Normal >60 [facility] Comment on above: Result Comment: mL/m in/1.73m2 CKD-EPI Creatinine Equation (2020) Performed By: #### L 100.0100, L500.2500 ####[facility] [address] [place], [address] Glucose [Mass/Vol] 133 mg/dL High 70-99 [facility] Comment on above: Performed By: #### L 100.0100, L500.2500 ####[facility] [address] [place], [address] Potassium [Moles/Vol] 2.9 mmol/L Low 3.3-5.1 [facility] Comment on above: Performed By: #### L 100.0100, L500.2500 ####[facility] [address] [place], [address] Sodium [Moles/Vol] 140 mmol/L Normal 133-145 [facility] Comment on above: Performed By: #### L 100.0100, L500.2500 ####[facility] [address] [place], [address] Urea nitrogen [Mass/Vol] 23 mg/dL High 4-19 [facility] Comment on above: Performed By: #### L 100.0100, L500.2500 ####[facility] [address] [place], [address] Bedside Glucoseon 07-23-2025 FINGERSTICK GLU 129 mg/dL High 74-106 [facility] Comment on above: Result Comment: CHERYL GEMENT OF PATIENT CARE PER NURSING PROTOCOL Performed By: #### L 501.080 ####[facility] [address] [place], [address] FINGERSTICK GLU 123 mg/dL High 74-106 [facility] Comment on above: Result Comment: CHERYL GEMENT OF PATIENT CARE PER NURSING PROTOCOL Performed By: #### L 501.080 ####[facility] [address] [place], [address] FINGERSTICK GLU 137 mg/dL High 74-106 [facility] Comment on above: Result Comment: CHERYL GEMENT OF PATIENT CARE PER NURSING PROTOCOL Performed By: #### L 501.080 ####[facility] [address] [place], [address] CBC W/Diff, Automatedon 10-0 Absolute Lymph 1.95 X10 3/uL Normal 0.83-4.51 [facility] Comment on above: Performed By: #### L 100.0100, L500.2500 ####[facility] [address] [place], [address] Absolute Neut 7.6 X10 3/uL Normal 2.0-7.7 [facility] Comment on above: Performed By: #### L 100.0100, L500.2500 ####[facility] [address] [place], [address] Basophils/100 WBC (Bld) 0.1 % Normal 0-1 [facility] Comment on above: Performed By: #### L 100.0100, L500.2500 ####[facility] [address] [place], [address] Eosinophils/100 WBC (Bld) 0.1 % Normal 0-5 [facility] Comment on above: Performed By: #### L 100.0100, L500.2500 ####[facility] [address] [place], [address] Erythrocyte distribution width (RBC) [Ratio] 15.0 % High 11.6-14.6 [facility] Comment on above: Performed By: #### L 100.0100, L500.2500 ####[facility] [address] [place], [address] Hematocrit (Bld) [Volume fraction] 29.6 % Low 37-47 [facility] Comment on above: Performed By: #### L 100.0100, L500.2500 ####[facility] [address] [place], [address] Hemoglobin (Bld) [Mass/Vol] 9.9 g/dL Low 12.0-15.0 [facility] Comment on above: Performed By: #### L 100.0100, L500.2500 ####[facility] [address] [place], [address] IG% 2.000 High 0.0-0.9 [facility] Comment on above: Result Comment: IG% - Immature Granulocytes (promyelocytes, myelocytes andmetamyelocytes) > 1% indicates that a LEFT SHIFT is Present. Performed By: #### L 100.0100, L500.2500 ####[facility] [address] [place], [address] Lymphocytes/100 WBC (Bld) 17.3 % Low 19-41 [facility] Comment on above: Performed By: #### L 100.0100, L500.2500 ####[facility] [address] [place], [address] MCH (RBC) [Entitic mass] 29.0 pg Normal 27.0-32.0 [facility] Comment on above: Performed By: #### L 100.0100, L500.2500 ####[facility] [address] [place], [address] MCHC (RBC) [Mass/Vol] 33.4 g/dL Normal 32-36 [facility] Comment on above: Performed By: #### L 100.0100, L500.2500 ####[facility] [address] [place], [address] MCV (RBC) [Entitic vol] 86.8 fL Normal 81-99 [facility] Comment on above: Performed By: #### L 100.0100, L500.2500 ####[facility] [address] [place], [address] Monocytes/100 WBC (Bld) 13.0 % High 0-10 [facility] Comment on above: Performed By: #### L 100.0100, L500.2500 ####[facility] [address] [place], [address] Neutrophils/100 WBC (Bld) 67.5 % Normal 47-70 [facility] Comment on above: Performed By: #### L 100.0100, L500.2500 ####[facility] [address] [place], [address] Nucleated RBC (Bld) [#/Vol] 0 10*3/uL Normal 0-5 [facility] Comment on above: Performed By: #### L 100.0100, L500.2500 ####[facility] [address] [place], [address] Platelet mean volume (Bld) [Entitic vol] 9.3 fL Normal 6.2-12.0 [facility] Comment on above: Performed By: #### L 100.0100, L500.2500 ####[facility] [address] [place], [address] Platelets (Bld) [#/Vol] 436 10*3/uL Normal 150-450 [facility] Comment on above: Performed By: #### L 100.0100, L500.2500 ####[facility] [address] [place], [address] RBC (Bld) [#/Vol] 3.41 10*6/uL Low 4.2-5.4 [facility] Comment on above: Performed By: #### L 100.0100, L500.2500 ####[facility] [address] [place], [address] RDW SD 47.5 fl High 35.1-43.9 [facility] Comment on above: Performed By: #### L 100.0100, L500.2500 ####[facility] [address] [place], [address] WBC (Bld) [#/Vol] 11.3 10*3/uL High 4.4-11.0 [facility] Comment on above: Performed By: #### L 100.0100, L500.2500 ####[facility] [address] [place], [address] Magnesiumon 07-23-2025 Magnesium [Mass/Vol] 2.3 mg/dL High 1.5-2.2 [facility] Comment on above: Performed By: #### L 501.5200 ####[facility] [address] [place], [address] Absolute lymphocyte countOrd ered By: Renee Alysha on 07-22-2025 Lymphocytes Auto (Unsp spec) [#/Vol] 1.00 10*3/uL 0.83-4.51 [facility] Anion gap in Serum or Plasma Ordered By: Renee Encarnacion on 07-22-2025 Anion gap [Moles/Vol] 14 mmol/L 5-15 [facility] Automated lymphocyte count a s percentage of total leukocytesOrdered By: Reneeteofilo Encarnacion on 07-22-2025 Lymphocytes/100 WBC Auto (Unsp spec) 8.4 % Low 19-41 [facility] BUN/creatinine ratioOrdered By: Renee Encarnacion on 07-22-2025 Urea nitrogen/Creatinine [Mass ratio] 39.5 mg/mg High 10-20 [facility] Basic Metabolic Profile (BMP )on 07-22-2025 BUN/CRE 39.5 RATIO High - [facility] Comment on above: Performed By: #### L 100.0100, L500.2500 ####[facility] [address] [place], [address] Calcium [Mass/Vol] 8.3 mg/dL Normal 7.6-11.0 [facility] Comment on above: Performed By: #### L 100.0100, L500.2500 ####[facility] [address] [place], [address] Chloride [Moles/Vol] 106 mmol/L Normal 98-108 [facility] Comment on above: Performed By: #### L 100.0100, L500.2500 ####[facility] [address] [place], [address] CO2 [Moles/Vol] 22.3 mmol/L Normal 21.0-32.0 [facility] Comment on above: Performed By: #### L 100.0100, L500.2500 ####[facility] [address] [place], [address] Creatinine [Mass/Vol] 0.76 mg/dL Normal 0.70-1.20 [facility] Comment on above: Performed By: #### L 100.0100, L500.2500 ####[facility] [address] [place], [address] ECRCL 52.85 ml/min Normal 50-250 [facility] Comment on above: Performed By: #### L 100.0100, L500.2500 ####[facility] [address] [place], [address] GAP 14 Normal 5-15 [facility] Comment on above: Performed By: #### L 100.0100, L500.2500 ####[facility] [address] [place], [address] GFR/1.73 sq M.predicted among non-blacks MDRD (S/P/Bld) [Vol rate/Area] 84 mL/min/{1.73_m2} Normal >60 [facility] Comment on above: Result Comment: mL/m in/1.73m2 CKD-EPI Creatinine Equation (2020) Performed By: #### L 100.0100, L500.2500 ####[facility] [address] [place], [address] Glucose [Mass/Vol] 160 mg/dL High 70-99 [facility] Comment on above: Performed By: #### L 100.0100, L500.2500 ####[facility] [address] [place], [address] Potassium [Moles/Vol] 3.2 mmol/L Low 3.3-5.1 [facility] Comment on above: Performed By: #### L 100.0100, L500.2500 ####[facility] [address] [place], [address] Sodium [Moles/Vol] 142 mmol/L Normal 133-145 [facility] Comment on above: Performed By: #### L 100.0100, L500.2500 ####[facility] [address] [place], [address] Urea nitrogen [Mass/Vol] 30 mg/dL High 4-19 [facility] Comment on above: Performed By: #### L 100.0100, L500.2500 ####[facility] [address] [place], [address] Basophil percentageOrdered B y: Renee Encarnacion on 07-22-2025 Basophils/100 WBC (Bld) 0.3 % 0-1 [facility] Bedside Glucoseon 07-22-2025 FINGERSTICK GLU 136 mg/dL High 74-106 [facility] Comment on above: Result Comment: CHERYL GEMENT OF PATIENT CARE PER NURSING PROTOCOL Performed By: #### L 501.080 ####[facility] [address] [place], [address] FINGERSTICK GLU 233 mg/dL High 74-106 [facility] Comment on above: Result Comment: CHERYL GEMENT OF PATIENT CARE PER NURSING PROTOCOL Performed By: #### L 501.080 ####[facility] [address] [place], [address] FINGERSTICK GLU 174 mg/dL High 74-106 [facility] Comment on above: Result Comment: CHERYL GEMENT OF PATIENT CARE PER NURSING PROTOCOL Performed By: #### L 501.080 ####[facility] [address] [place], [address] FINGERSTICK GLU 169 mg/dL High 74-106 [facility] Comment on above: Result Comment: CHERYL GEMENT OF PATIENT CARE PER NURSING PROTOCOL Performed By: #### L 501.080 ####[facility] [address] [place], [address] CBC W/Diff, Automatedon 09-3 0-2025 Absolute Lymph 1.00 X10 3/uL Normal 0.83-4.51 [facility] Comment on above: Performed By: #### L 100.0100, L500.2500 ####[facility] [address] [place], [address] Absolute Neut 10.0 X10 3/uL High 2.0-7.7 [facility] Comment on above: Performed By: #### L 100.0100, L500.2500 ####[facility] [address] [place], [address] Basophils/100 WBC (Bld) 0.3 % Normal 0-1 [facility] Comment on above: Performed By: #### L 100.0100, L500.2500 ####[facility] [address] [place], [address] Eosinophils/100 WBC (Bld) 0.0 % Normal 0-5 [facility] Comment on above: Performed By: #### L 100.0100, L500.2500 ####[facility] [address] [place], [address] Erythrocyte distribution width (RBC) [Ratio] 15.3 % High 11.6-14.6 [facility] Comment on above: Performed By: #### L 100.0100, L500.2500 ####[facility] [address] [place], [address] Hematocrit (Bld) [Volume fraction] 32.9 % Low 37-47 [facility] Comment on above: Performed By: #### L 100.0100, L500.2500 ####[facility] [address] [place], [address] Hemoglobin (Bld) [Mass/Vol] 10.7 g/dL Low 12.0-15.0 [facility] Comment on above: Performed By: #### L 100.0100, L500.2500 ####[facility] [address] [place], [address] IG% 2.500 High 0.0-0.9 [facility] Comment on above: Result Comment: IG% - Immature Granulocytes (promyelocytes, myelocytes andmetamyelocytes) > 1% indicates that a LEFT SHIFT is Present. Performed By: #### L 100.0100, L500.2500 ####[facility] [address] [place], [address] Lymphocytes/100 WBC (Bld) 8.4 % Low 19-41 [facility] Comment on above: Performed By: #### L 100.0100, L500.2500 ####[facility] [address] [place], [address] MCH (RBC) [Entitic mass] 28.8 pg Normal 27.0-32.0 [facility] Comment on above: Performed By: #### L 100.0100, L500.2500 ####[facility] [address] [place], [address] MCHC (RBC) [Mass/Vol] 32.5 g/dL Normal 32-36 [facility] Comment on above: Performed By: #### L 100.0100, L500.2500 ####[facility] [address] [place], [address] MCV (RBC) [Entitic vol] 88.7 fL Normal 81-99 [facility] Comment on above: Performed By: #### L 100.0100, L500.2500 ####[facility] [address] [place], [address] Monocytes/100 WBC (Bld) 4.1 % Normal 0-10 [facility] Comment on above: Performed By: #### L 100.0100, L500.2500 ####[facility] [address] [place], [address] Neutrophils/100 WBC (Bld) 84.7 % High 47-70 [facility] Comment on above: Performed By: #### L 100.0100, L500.2500 ####[facility] [address] [place], [address] Nucleated RBC (Bld) [#/Vol] 0 10*3/uL Normal 0-5 [facility] Comment on above: Performed By: #### L 100.0100, L500.2500 ####[facility] [address] [place], [address] Platelet mean volume (Bld) [Entitic vol] 9.5 fL Normal 6.2-12.0 [facility] Comment on above: Performed By: #### L 100.0100, L500.2500 ####[facility] [address] [place], [address] Platelets (Bld) [#/Vol] 452 10*3/uL High 150-450 [facility] Comment on above: Performed By: #### L 100.0100, L500.2500 ####[facility] [address] [place], [address] RBC (Bld) [#/Vol] 3.71 10*6/uL Low 4.2-5.4 [facility] Comment on above: Performed By: #### L 100.0100, L500.2500 ####[facility] [address] [place], [address] RDW SD 49.1 fl High 35.1-43.9 [facility] Comment on above: Performed By: #### L 100.0100, L500.2500 ####[facility] [address] [place], [address] WBC (Bld) [#/Vol] 11.8 10*3/uL High 4.4-11.0 [facility] Comment on above: Performed By: #### L 100.0100, L500.2500 ####[facility] [address] [place], [address] Carbon dioxide, total [Moles /volume] in Central venous bloodOrdered By: Renee Encarnacion on 07-22-2025 CO2 [Moles/Vol] 22.3 mmol/L 21.0-32.0 [facility] Chloride assayOrdered By: Na na Alysha on 07-22-2025 Chloride [Moles/Vol] 106 mmol/L 98-108 [facility] Eosinophil percentageOrdered By: Renee Encarnacion on 07-22-2025 Eosinophils/100 WBC (Bld) 0.0 % 0-5 [facility] Erythrocyte distribution wid th ratioOrdered By: Reneeteofilo Encarnacion on 07-22-2025 Erythrocyte distribution width (RBC) [Ratio] 15.3 % High 11.6-14.6 [facility] Erythrocyte distribution wid th standard deviationOrdered By: Renee [facility] on 07-22-2025 Erythrocyte distribution width (RBC) [Ratio] 49.1 fl High 35.1-43.9 [facility] Glomerular filtration rate ( GFR) estimation/1.73 sq m using serum, plasma, or whole bOrdered By: Renee Encarnacion on 07-22-2025 GFR/1.73 sq M.predicted among non-blacks MDRD (S/P/Bld) [Vol rate/Area] 84 mL/min/{1.73_m2} >60 [facility] deOrdered By: Renee Encarnacion on 07-22-2025 Glucose [Mass/Vol] 136 mg/dL High 74-106 [facility] Hematocrit Auto (Bld) [Volum e fraction]Ordered By: eRnee Encarnacion on 07-22-2025 Hematocrit (Bld) [Volume fraction] 32.9 % Low 37-47 [facility] Hemoglobin measurementOrdere d By: Renee Encarnacion on 07-22-2025 Hemoglobin (Bld) [Mass/Vol] 10.7 g/dL Low 12.0-15.0 [facility] Immature granulocytes/100 WB C Auto (Bld)Ordered By: Renee Encarnacion on 07-22-2025 Immature granulocytes/100 WBC (Bld) 2.500 % High 0.0-0.9 [facility] MCV (mean corpuscular volume ) determinationOrdered By: Renee Encarnacion on 07-22-2025 MCV (RBC) [Entitic vol] 88.7 fL 81-99 [facility] MR/CON.PCM.PAon 07-22-2025 MR/CON.PCM.PA Normal [facility] Mean corpuscular hemoglobin (MCH) determinationOrdered By: Renee Encarnacion on 07-22-2025 MCH (RBC) [Entitic mass] 28.8 pg 27.0-32.0 [facility] Modified Barium Swallow Stud yon 07-22-2025 Modified Barium Swallow Study Normal [facility] Monocyte percentageOrdered B y: Renee Encarnacion on 07-22-2025 Monocytes/100 WBC (Bld) 4.1 % 0-10 [facility] Neutrophil percentageOrdered By: Renee Encarnacion on 07-22-2025 Neutrophils/100 WBC (Bld) 84.7 % High 47-70 [facility] Platelet countOrdered By: Viki Encarnacion on 07-22-2025 Platelets (Bld) [#/Vol] 452 10*3/uL High 150-450 [facility] Potassium measurement (mass/ volume)Ordered By: Renee Encarnacion on 07-22-2025 Potassium (Unsp spec) [Mass/Vol] 3.2 mmol/L Low 3.3-5.1 [facility] RBC Auto (Bld) [#/Vol]Ordere d By: Renee Encarnacion on 07-22-2025 RBC (Bld) [#/Vol] 3.71 10*6/uL Low 4.2-5.4 [facility] Serum creatinine measurement (mass/volume)Ordered By: Renee Encarnacion on 07-22-2025 Creatinine [Mass/Vol] 0.76 mg/dL 0.70-1.20 [facility] Serum glucose measurement (m ass/volume)Ordered By: Renee Encarnacion on 07-22-2025 Glucose [Mass/Vol] 160 mg/dL High 70-99 [facility] Serum or plasma calcium erik urement (mass/volume)Ordered By: Renee Encarnacion on 07-22-2025 Calcium [Mass/Vol] 8.3 mg/dL 7.6-11.0 [facility] Serum or plasma urea nitroge n measurement (mass/volume)Ordered By: Renee Encarnacion on 07-22-2025 Urea nitrogen [Mass/Vol] 30 mg/dL High 4-19 [facility] Sodium levelOrdered By: Renee Encarnacion on 07-22-2025 Sodium [Moles/Vol] 142 mmol/L 133-145 [facility] White blood cell (WBC) count Ordered By: Renee Encarnacion on 07-22-2025 WBC (Bld) [#/Vol] 11.8 10*3/uL High 4.4-11.0 [facility] Basic Metabolic Profile (BMP )on 07-21-2025 BUN/CRE 47.6 RATIO High 10-20 [facility] Comment on above: Performed By: #### L 100.0100, L500.2500 ####[facility] [address] [place], [address] Calcium [Mass/Vol] 8.6 mg/dL Normal 7.6-11.0 [facility] Comment on above: Performed By: #### L 100.0100, L500.2500 ####[facility] [address] [place], [address] Chloride [Moles/Vol] 104 mmol/L Normal 98-108 [facility] Comment on above: Performed By: #### L 100.0100, L500.2500 ####[facility] [address] [place], [address] CO2 [Moles/Vol] 23.5 mmol/L Normal 21.0-32.0 [facility] Comment on above: Performed By: #### L 100.0100, L500.2500 ####[facility] [address] [place], [address] Creatinine [Mass/Vol] 0.83 mg/dL Normal 0.70-1.20 [facility] Comment on above: Performed By: #### L 100.0100, L500.2500 ####[facility] [address] [place], [address] ECRCL 50.05 ml/min Normal 50-250 [facility] Comment on above: Performed By: #### L 100.0100, L500.2500 ####[facility] [address] [place], [address] GAP 14 Normal 5-15 [facility] Comment on above: Performed By: #### L 100.0100, L500.2500 ####[facility] [address] [place], [address] GFR/1.73 sq M.predicted among non-blacks MDRD (S/P/Bld) [Vol rate/Area] 76 mL/min/{1.73_m2} Normal >60 [facility] Comment on above: Result Comment: mL/m in/1.73m2 CKD-EPI Creatinine Equation (2020) Performed By: #### L 100.0100, L500.2500 ####[facility] [address] [place], [address] Glucose [Mass/Vol] 167 mg/dL High 70-99 [facility] Comment on above: Performed By: #### L 100.0100, L500.2500 ####[facility] [address] [place], [address] Potassium [Moles/Vol] 3.9 mmol/L Normal 3.3-5.1 [facility] Comment on above: Performed By: #### L 100.0100, L500.2500 ####[facility] [address] [place], [address] Sodium [Moles/Vol] 141 mmol/L Normal 133-145 [facility] Comment on above: Performed By: #### L 100.0100, L500.2500 ####[facility] [address] [place], [address] Urea nitrogen [Mass/Vol] 39 mg/dL High 4-19 [facility] Comment on above: Performed By: #### L 100.0100, L500.2500 ####[facility] [address] [place], [address] Bedside Glucoseon 07-21-2025 FINGERSTICK GLU 82 mg/dL Normal 74-106 [facility] Comment on above: Result Comment: CHERYL GEMENT OF PATIENT CARE PER NURSING PROTOCOL Performed By: #### L 501.080 ####[facility] [address] [place], [address] FINGERSTICK GLU 52 mg/dL Low 74-106 [facility] Comment on above: Result Comment: Dr Geovanny pastrana FollowedInsulin GivenMANAGEMENT OF PATIENT CARE PER NURSING PROTOCOL Performed By: #### L 501.080 ####[facility] [address] [place], [address] FINGERSTICK GLU 202 mg/dL High 74-106 [facility] Comment on above: Result Comment: CHERYL GEMENT OF PATIENT CARE PER NURSING PROTOCOL Performed By: #### L 501.080 ####[facility] [address] [place], [address] FINGERSTICK GLU 49 mg/dL Low 74-106 [facility] Comment on above: Result Comment: CHERYL GEMENT OF PATIENT CARE PER NURSING PROTOCOL Performed By: #### L 501.080 ####[facility] [address] [place], [address] FINGERSTICK GLU 126 mg/dL High 74-106 [facility] Comment on above: Result Comment: CHERYL GEMENT OF PATIENT CARE PER NURSING PROTOCOL Performed By: #### L 501.080 ####[facility] [address] [place], [address] FINGERSTICK GLU 161 mg/dL High 74-106 [facility] Comment on above: Result Comment: CHERYL GEMENT OF PATIENT CARE PER NURSING PROTOCOL Performed By: #### L 501.080 ####[facility] [address] [place], [address] FINGERSTICK GLU 159 mg/dL High 74-106 [facility] Comment on above: Result Comment: CHERYL GEMENT OF PATIENT CARE PER NURSING PROTOCOL Performed By: #### L 501.080 ####[facility] [address] [place], [address] CBC W/Diff, Automatedon -2 Absolute Lymph 1.01 X10 3/uL Normal 0.83-4.51 [facility] Comment on above: Performed By: #### L 100.0100, L500.2500 ####[facility] [address] [place], [address] Absolute Neut 9.5 X10 3/uL High 2.0-7.7 [facility] Comment on above: Performed By: #### L 100.0100, L500.2500 ####[facility] [address] [place], [address] Basophils/100 WBC (Bld) 0.3 % Normal 0-1 [facility] Comment on above: Performed By: #### L 100.0100, L500.2500 ####[facility] [address] [place], [address] Eosinophils/100 WBC (Bld) 0.1 % Normal 0-5 [facility] Comment on above: Performed By: #### L 100.0100, L500.2500 ####[facility] [address] [place], [address] Erythrocyte distribution width (RBC) [Ratio] 15.3 % High 11.6-14.6 [facility] Comment on above: Performed By: #### L 100.0100, L500.2500 ####[facility] [address] [place], [address] Hematocrit (Bld) [Volume fraction] 32.5 % Low 37-47 [facility] Comment on above: Performed By: #### L 100.0100, L500.2500 ####[facility] [address] [place], [address] Hemoglobin (Bld) [Mass/Vol] 10.6 g/dL Low 12.0-15.0 [facility] Comment on above: Performed By: #### L 100.0100, L500.2500 ####[facility] [facility] [address] [place], [address] IG% 1.800 High 0.0-0.9 [facility] Comment on above: Result Comment: IG% - Immature Granulocytes (promyelocytes, myelocytes andmetamyelocytes) > 1% indicates that a LEFT SHIFT is Present. Performed By: #### L 100.0100, L500.2500 ####[facility] [address] [place], [address] Lymphocytes/100 WBC (Bld) 8.8 % Low 19-41 [facility] Comment on above: Performed By: #### L 100.0100, L500.2500 ####[facility] [address] [place], [address] MCH (RBC) [Entitic mass] 28.6 pg Normal 27.0-32.0 [facility] Comment on above: Performed By: #### L 100.0100, L500.2500 ####[facility] [address] [place], [address] MCHC (RBC) [Mass/Vol] 32.6 g/dL Normal 32-36 [facility] Comment on above: Performed By: #### L 100.0100, L500.2500 ####[facility] [address] [place], [address] MCV (RBC) [Entitic vol] 87.8 fL Normal 81-99 [facility] Comment on above: Performed By: #### L 100.0100, L500.2500 ####[facility] [address] [place], [address] Monocytes/100 WBC (Bld) 5.8 % Normal 0-10 [facility] Comment on above: Performed By: #### L 100.0100, L500.2500 ####[facility] [address] [place], [address] Neutrophils/100 WBC (Bld) 83.2 % High 47-70 [facility] Comment on above: Performed By: #### L 100.0100, L500.2500 ####[facility] [address] [place], [address] Nucleated RBC (Bld) [#/Vol] 0 10*3/uL Normal 0-5 [facility] Comment on above: Performed By: #### L 100.0100, L500.2500 ####[facility] [address] [place], [address] Platelet mean volume (Bld) [Entitic vol] 9.5 fL Normal 6.2-12.0 [facility] Comment on above: Performed By: #### L 100.0100, L500.2500 ####[facility] [address] [place], [address] Platelets (Bld) [#/Vol] 389 10*3/uL Normal 150-450 [facility] Comment on above: Performed By: #### L 100.0100, L500.2500 ####[facility] [address] [place], [address] RBC (Bld) [#/Vol] 3.70 10*6/uL Low 4.2-5.4 [facility] Comment on above: Performed By: #### L 100.0100, L500.2500 ####[facility] [address] [place], [address] RDW SD 48.8 fl High 35.1-43.9 [facility] Comment on above: Performed By: #### L 100.0100, L500.2500 ####[facility] [address] [place], [address] WBC (Bld) [#/Vol] 11.5 10*3/uL High 4.4-11.0 [facility] Comment on above: Performed By: #### L 100.0100, L500.2500 ####[facility] [address] [place], [address] Culture, Blood (WB)on 2024 CUB Blood cultures x2, from two different sites No growth in 5 days. Normal [facility] Comment on above: Performed By: #### M 200.1000 ####[facility] [address] [place], [address] Basic Metabolic Profile (BMP )on 07-20-2025 BUN/CRE 47.3 RATIO High 10-20 [facility] Comment on above: Performed By: #### L 100.0100, L500.2500 ####[facility] [address] [place], [address] Calcium [Mass/Vol] 8.2 mg/dL Normal 7.6-11.0 [facility] Comment on above: Performed By: #### L 100.0100, L500.2500 ####[facility] [address] [place], [address] Chloride [Moles/Vol] 105 mmol/L Normal 98-108 [facility] Comment on above: Performed By: #### L 100.0100, L500.2500 ####[facility] [address] [place], [address] CO2 [Moles/Vol] 22.2 mmol/L Normal 21.0-32.0 [facility] Comment on above: Performed By: #### L 100.0100, L500.2500 ####[facility] [address] [place], [address] Creatinine [Mass/Vol] 0.89 mg/dL Normal 0.70-1.20 [facility] Comment on above: Performed By: #### L 100.0100, L500.2500 ####[facility] [address] [place], [address] ECRCL 46.22 ml/min Low 50-250 [facility] Comment on above: Performed By: #### L 100.0100, L500.2500 ####[facility] [address] [place], [address] GAP 12 Normal 5-15 [facility] Comment on above: Performed By: #### L 100.0100, L500.2500 ####[facility] [address] [place], [address] GFR/1.73 sq M.predicted among non-blacks MDRD (S/P/Bld) [Vol rate/Area] 69 mL/min/{1.73_m2} Normal >60 [facility] Comment on above: Result Comment: mL/m in/1.73m2 CKD-EPI Creatinine Equation (2020) Performed By: #### L 100.0100, L500.2500 ####[facility] [address] [place], [address] Glucose [Mass/Vol] 194 mg/dL High 70-99 [facility] Comment on above: Performed By: #### L 100.0100, L500.2500 ####[facility] [address] [place], [address] Potassium [Moles/Vol] 4.4 mmol/L Normal 3.3-5.1 [facility] Comment on above: Performed By: #### L 100.0100, L500.2500 ####[facility] [address] [place], [address] Sodium [Moles/Vol] 139 mmol/L Normal 133-145 [facility] Comment on above: Performed By: #### L 100.0100, L500.2500 ####[facility] [address] [place], [address] Urea nitrogen [Mass/Vol] 42 mg/dL High 4-19 [facility] Comment on above: Performed By: #### L 100.0100, L500.2500 ####[facility] [address] [place], [address] Bedside Glucoseon 07-20-2025 FINGERSTICK GLU 179 mg/dL High 74-106 [facility] Comment on above: Result Comment: CHERYL GEMENT OF PATIENT CARE PER NURSING PROTOCOL Performed By: #### L 501.080 ####[facility] [address] [place], [address] FINGERSTICK GLU 170 mg/dL High 74-106 [facility] Comment on above: Result Comment: CHERYL GEMENT OF PATIENT CARE PER NURSING PROTOCOL Performed By: #### L 501.080 ####[facility] [address] [place], [address] FINGERSTICK GLU 176 mg/dL High 74-106 [facility] Comment on above: Result Comment: CHERYL GEMENT OF PATIENT CARE PER NURSING PROTOCOL Performed By: #### L 501.080 ####[facility] [address] [place], [address] CBC W/Diff, Automatedon 09-2 Absolute Lymph 0.59 X10 3/uL Low 0.83-4.51 [facility] Comment on above: Performed By: #### L 100.0100, L500.2500 ####[facility] [address] [place], [address] Absolute Neut 10.2 X10 3/uL High 2.0-7.7 [facility] Comment on above: Performed By: #### L 100.0100, L500.2500 ####[facility] [address] [place], [address] Basophils/100 WBC (Bld) 0.1 % Normal 0-1 [facility] Comment on above: Performed By: #### L 100.0100, L500.2500 ####[facility] [address] [place], [address] Eosinophils/100 WBC (Bld) 0.0 % Normal 0-5 [facility] Comment on above: Performed By: #### L 100.0100, L500.2500 ####[facility] [address] [place], [address] Erythrocyte distribution width (RBC) [Ratio] 15.4 % High 11.6-14.6 [facility] Comment on above: Performed By: #### L 100.0100, L500.2500 ####[facility] [address] [place], [address] Hematocrit (Bld) [Volume fraction] 33.0 % Low 37-47 [facility] Comment on above: Performed By: #### L 100.0100, L500.2500 ####[facility] [address] [place], [address] Hemoglobin (Bld) [Mass/Vol] 10.5 g/dL Low 12.0-15.0 [facility] Comment on above: Performed By: #### L 100.0100, L500.2500 ####[facility] [address] [place], [address] IG% 0.900 Normal 0.0-0.9 [facility] Comment on above: Result Comment: IG% - Immature Granulocytes (promyelocytes, myelocytes andmetamyelocytes) > 1% indicates that a LEFT SHIFT is Present. Performed By: #### L 100.0100, L500.2500 ####[facility] [address] [place], [address] Lymphocytes/100 WBC (Bld) 5.2 % Low 19-41 [facility] Comment on above: Performed By: #### L 100.0100, L500.2500 ####[facility] [address] [place], [address] MCH (RBC) [Entitic mass] 28.4 pg Normal 27.0-32.0 [facility] Comment on above: Performed By: #### L 100.0100, L500.2500 ####[facility] [address] [place], [address] MCHC (RBC) [Mass/Vol] 31.8 g/dL Low 32-36 [facility] Comment on above: Performed By: #### L 100.0100, L500.2500 ####[facility] [address] [place], [address] MCV (RBC) [Entitic vol] 89.2 fL Normal 81-99 [facility] Comment on above: Performed By: #### L 100.0100, L500.2500 ####[facility] [address] [place], [address] Monocytes/100 WBC (Bld) 4.5 % Normal 0-10 [facility] Comment on above: Performed By: #### L 100.0100, L500.2500 ####[facility] [address] [place], [address] Neutrophils/100 WBC (Bld) 89.3 % High 47-70 [facility] Comment on above: Performed By: #### L 100.0100, L500.2500 ####[facility] [address] [place], [address] Nucleated RBC (Bld) [#/Vol] 0 10*3/uL Normal 0-5 [facility] Comment on above: Performed By: #### L 100.0100, L500.2500 ####[facility] [address] [place], [address] Platelet mean volume (Bld) [Entitic vol] 9.6 fL Normal 6.2-12.0 [facility] Comment on above: Performed By: #### L 100.0100, L500.2500 ####[facility] [address] [place], [address] Platelets (Bld) [#/Vol] 385 10*3/uL Normal 150-450 [facility] Comment on above: Performed By: #### L 100.0100, L500.2500 ####[facility] [address] [place], [address] RBC (Bld) [#/Vol] 3.70 10*6/uL Low 4.2-5.4 [facility] Comment on above: Performed By: #### L 100.0100, L500.2500 ####[facility] [address] [place], [address] RDW SD 49.8 fl High 35.1-43.9 [facility] Comment on above: Performed By: #### L 100.0100, L500.2500 ####[facility] [address] [place], [address] WBC (Bld) [#/Vol] 11.4 10*3/uL High 4.4-11.0 [facility] Comment on above: Performed By: #### L 100.0100, L500.2500 ####[facility] [address] [place], [place], [address] Trough vancomycin levelOrder ed By: Eleazar Valle on 07-20-2025 Vancomycin trough [Mass/Vol] 13.3 ug/mL 5.0-15.0 [facility] Vancomycin, Trough Levelon 0 07-20-2025 VANCO, TROUGH 13.3 ug/mL Normal 5.0-15.0 [facility] Comment on above: Order Comment: Comme nts: Trough to be drawn 30 mins prior to scheduled [id number] Result Comment: Hank mmended goal trough ranges [...] therapy recommended for serious lifethreatening infections include:- Zloevrtinc-Txslihkkwxdo-Szqlcupdp (Ventilator/Healtcare Associated)-SepsisPLEASE CONTACT PHARMACY SERVICES (#4171) FOR INTERPRETATIONOF RESULTS. Performed By: #### L 501.8820 ####[facility] [address] [place], [place], [id number] Basic Metabolic Profile (BMP )on 07-19-2025 BUN/CRE 41.1 RATIO High 10-20 [facility] Comment on above: Performed By: #### L 500.2500, L100.0100 ####[facility] [address] [place], [address] Calcium [Mass/Vol] 7.4 mg/dL Low 7.6-11.0 [facility] Comment on above: Performed By: #### L 500.2500, L100.0100 ####[facility] [address], [address] Chloride [Moles/Vol] 106 mmol/L Normal 98-108 [facility] Comment on above: Performed By: #### L 500.2500, L100.0100 ####[facility] [address] [place], [address] CO2 [Moles/Vol] 20.7 mmol/L Low 21.0-32.0 [facility] Comment on above: Performed By: #### L 500.2500, L100.0100 ####[facility] [address] [place], [address] Creatinine [Mass/Vol] 0.89 mg/dL Normal 0.70-1.20 [facility] Comment on above: Performed By: #### L 500.2500, L100.0100 ####[facility] [address] [place], [address] ECRCL 46.22 ml/min Low 50-250 [facility] Comment on above: Performed By: #### L 500.2500, L100.0100 ####[facility] [address] [place], [address] GAP 13 Normal 5-15 [facility] Comment on above: Performed By: #### L 500.2500, L100.0100 ####[facility] [address] [place], [address] GFR/1.73 sq M.predicted among non-blacks MDRD (S/P/Bld) [Vol rate/Area] 69 mL/min/{1.73_m2} Normal >60 [facility] Comment on above: Result Comment: mL/m in/1.73m2 CKD-EPI Creatinine Equation (2020) Performed By: #### L 500.2500, L100.0100 ####[facility] [address] [place], [address] Glucose [Mass/Vol] 199 mg/dL High 70-99 [facility] Comment on above: Performed By: #### L 500.2500, L100.0100 ####[facility] [address] [place], [address] Potassium [Moles/Vol] 3.0 mmol/L Low 3.3-5.1 [facility] Comment on above: Result Comment: Hemo lysis present, Results??could be affected.?? Performed By: #### L 500.2500, L100.0100 ####[facility] [address] [place], [address] Sodium [Moles/Vol] 140 mmol/L Normal 133-145 [facility] Comment on above: Performed By: #### L 500.2500, L100.0100 ####[facility] [address] [place], [address] Urea nitrogen [Mass/Vol] 37 mg/dL High 4-19 [facility] Comment on above: Performed By: #### L 500.2500, L100.0100 ####[facility] [address] [place], [address] Bedside Glucoseon 07-19-2025 FINGERSTICK GLU 163 mg/dL High 74-106 [facility] Comment on above: Result Comment: CHERYL GEMENT OF PATIENT CARE PER NURSING PROTOCOL Performed By: #### L 501.080 ####[facility] [address] [place], [address] FINGERSTICK GLU 166 mg/dL High 74-106 [facility] Comment on above: Result Comment: CHERYL GEMENT OF PATIENT CARE PER NURSING PROTOCOL Performed By: #### L 501.080 ####[facility] [address] [place], [address] FINGERSTICK GLU 125 mg/dL High 74-106 [facility] Comment on above: Result Comment: CHERYL GEMENT OF PATIENT CARE PER NURSING PROTOCOL Performed By: #### L 501.080 ####[facility] [address] [place], [address] FINGERSTICK GLU 192 mg/dL High 74-106 [facility] Comment on above: Result Comment: CHERYL GEMENT OF PATIENT CARE PER NURSING PROTOCOL Performed By: #### L 501.080 ####[facility] [address] [place], [address] FINGERSTICK GLU 190 mg/dL High 74-106 [facility] Comment on above: Result Comment: CHERYL GEMENT OF PATIENT CARE PER NURSING PROTOCOL Performed By: #### L 501.080 ####[facility] [address] [place], [address] Blood Gases by [facility] 025 Base excess Calc (Bld) [Moles/Vol] 3 mmol/L High -2 to +2 [facility] Comment on above: Performed By: #### L 9000.0800 ####[facility] [address] [place], [address] Blood Gas Type ART Normal [facility] Comment on above: Performed By: #### L 9000.0800 ####[facility] [address] [place], [address] CO2 [Moles/Vol] 28 mmol/L Normal [facility] Comment on above: Performed By: #### L 9000.0800 ####[facility] [address] [place], [address] FI02 30.0 Normal [facility] Comment on above: Performed By: #### L 9000.0800 ####[facility] [address] [place], [address] HCO3 (Bld) [Moles/Vol] 27.0 mmol/L High 22-26 [facility] Comment on above: Performed By: #### L 9000.0800 ####[facility] [address] [place], [address] Mode AC Normal [facility] Comment on above: Performed By: #### L 9000.0800 ####[facility] [address] [place], [address] O2 Delivery Dev Adult Vent Normal [facility] Comment on above: Performed By: #### L 9000.0800 ####[facility] [address] [place], [address] pCO2 36.7 mmHg Normal 35-45 [facility] Comment on above: Performed By: #### L 9000.0800 ####[facility] [address] [place], [address] PEEP 5 Normal [facility] Comment on above: Performed By: #### L 9000.0800 ####[facility] [address] [place], [address] pH (Bld) 7.48 [pH] High 7.35-7.45 [facility] Comment on above: Performed By: #### L 9000.0800 ####[facility] [address] [place], [address] PO2 53 mmHG Low 75-100 [facility] Comment on above: Performed By: #### L 9000.0800 ####[facility] [address] [place], [address] RR 20 Normal [facility] Comment on above: Performed By: #### L 9000.0800 ####[facility] [address] [place], [address] SITE R Brach Normal [facility] Comment on above: Performed By: #### L 9000.0800 ####[facility] [address] [place], [address] SO2 89 Low 95-99 [facility] Comment on above: Performed By: #### L 9000.0800 ####[facility] [address] [place], [address] Vt 400.0 mL Normal [facility] Comment on above: Performed By: #### L 9000.0800 ####[facility] [address] [place], [address] Blood base excess determinat ionOrdered By: Gerard Santos on 07-19-2025 Base excess Calc (BldV) [Moles/Vol] 3 mmol/L High -2-2 [facility] Blood bicarbonate measuremen tOrdered By: Gerard Santos on 07-19-2025 HCO3 (Bld) [Moles/Vol] 27.0 mmol/L High 22-26 [facility] CBC W/Diff, Automatedon 06-24 Absolute Lymph 0.40 X10 3/uL Low 0.83-4.51 [facility] Comment on above: Performed By: #### L 500.2500, L100.0100 ####[facility] [address] [place], [address] Absolute Neut 7.7 X10 3/uL Normal 2.0-7.7 [facility] Comment on above: Performed By: #### L 500.2500, L100.0100 ####[facility] [address] [place], [address] Basophils/100 WBC (Bld) 0.1 % Normal 0-1 [facility] Comment on above: Performed By: #### L 500.2500, L100.0100 ####[facility] [address] [place], [address] Eosinophils/100 WBC (Bld) 0.1 % Normal 0-5 [facility] Comment on above: Performed By: #### L 500.2500, L100.0100 ####[facility] [address] [place], [address] Erythrocyte distribution width (RBC) [Ratio] 15.3 % High 11.6-14.6 [facility] Comment on above: Performed By: #### L 500.2500, L100.0100 ####[facility] [address] [place], [address] Hematocrit (Bld) [Volume fraction] 31.3 % Low 37-47 [facility] Comment on above: Performed By: #### L 500.2500, L100.0100 ####[facility] [address] [place], [address] Hemoglobin (Bld) [Mass/Vol] 10.2 g/dL Low 12.0-15.0 [facility] Comment on above: Performed By: #### L 500.2500, L100.0100 ####[facility] [address] [place], [address] IG% 0.700 Normal 0.0-0.9 [facility] Comment on above: Result Comment: IG% - Immature Granulocytes (promyelocytes, myelocytes andmetamyelocytes) > 1% indicates that a LEFT SHIFT is Present. Performed By: #### L 500.2500, L100.0100 ####[facility] [address] [place], [address] Lymphocytes/100 WBC (Bld) 4.7 % Low 19-41 [facility] Comment on above: Performed By: #### L 500.2500, L100.0100 ####[facility] [address] [place], [address] MCH (RBC) [Entitic mass] 28.8 pg Normal 27.0-32.0 [facility] Comment on above: Performed By: #### L 500.2500, L100.0100 ####[facility] [address] [place], [address] MCHC (RBC) [Mass/Vol] 32.6 g/dL Normal 32-36 [facility] Comment on above: Performed By: #### L 500.2500, L100.0100 ####[facility] [address] [place], [address] MCV (RBC) [Entitic vol] 88.4 fL Normal 81-99 [facility] Comment on above: Performed By: #### L 500.2500, L100.0100 ####[facility] [address] [place], [address] Monocytes/100 WBC (Bld) 4.3 % Normal 0-10 [facility] Comment on above: Performed By: #### L 500.2500, L100.0100 ####[facility] [address] [place], [address] Neutrophils/100 WBC (Bld) 90.1 % High 47-70 [facility] Comment on above: Performed By: #### L 500.2500, L100.0100 ####[facility] [address] [place], [address] Nucleated RBC (Bld) [#/Vol] 0 10*3/uL Normal 0-5 [facility] Comment on above: Performed By: #### L 500.2500, L100.0100 ####[facility] [address] [place], [address] Platelet mean volume (Bld) [Entitic vol] 9.5 fL Normal 6.2-12.0 [facility] Comment on above: Performed By: #### L 500.2500, L100.0100 ####[facility] [address] [place], [address] Platelets (Bld) [#/Vol] 348 10*3/uL Normal 150-450 [facility] Comment on above: Performed By: #### L 500.2500, L100.0100 ####[facility] [address] [place], [address] RBC (Bld) [#/Vol] 3.54 10*6/uL Low 4.2-5.4 [facility] Comment on above: Performed By: #### L 500.2500, L100.0100 ####[facility] [address] [place], [address] RDW SD 49.1 fl High 35.1-43.9 [facility] Comment on above: Performed By: #### L 500.2500, L100.0100 ####[facility] [address] [place], [address] WBC (Bld) [#/Vol] 8.5 10*3/uL Normal 4.4-11.0 [facility] Comment on above: Performed By: #### L 500.2500, L100.0100 ####[facility] [address] [place], [address] Chest 1 View (Portable)on Chest 1 View (Portable) Normal W [facility] Hepatitis Panel Acuteon 06-24 COMMENT Comment Normal . [facility] Comment on above: Result Comment: Not infected with HCV unless early or acute infection issuspected (which may be delayed in an immunocompromisedindividual), or other evidence exists to indicate HCVinfection.Performed at: - [facility] [id number] Director: Jonathan Lopez PhD, Phone: [phone] Performed By: #### L 3000.0375 ####[facility] [address] [place], [address] HEP B CORE,IgM Negative Normal Negative [facility] Comment on above: Performed By: #### L 3000.0375 ####[facility] [address] [place], [address] HEP B SURF AG Negative Normal Negative [facility] Comment on above: Performed By: #### L 3000.0375 ####[facility] [address] [place], [address] HEP C VIRUS AB Non-Reactive Normal Non Reactive [facility] Comment on above: Performed By: #### L 3000.0375 ####[facility] [address] [place], [place], [id number] HEPATITIS A-IgM Negative Normal Negative [facility] Comment on above: Result Comment: A ne gative anti-HAV IgM result suggests no recent orcurrent HAV infection. Performed By: #### L 3000.0375 ####[facility] [address] [place], [place], [id number] Measurement, pHOrdered By: Alphonso Santos on 07-19-2025 pH (Unsp spec) 7.48 [pH] High 7.35-7.45 [facility] No Panel InformationOrdered By: Gerard Santos on 07-19-2025 ART [facility] R Brach [facility] AC [facility] Adult Vent [facility] 400.0 mL [facility] 20 [facility] 5 [facility] Total carbon dioxide measure mentOrdered By: Gerard Santos on 07-19-2025 CO2 [Moles/Vol] 28 mmol/L [facility] Basic Metabolic Profile (BMP )on 07-18-2025 BUN/CRE 32.4 RATIO High 10-20 [facility] Comment on above: Performed By: #### L 500.2500, L501.2300, L100.0100, L501.5200 ####[facility] [address] [place], [place], [id number] Calcium [Mass/Vol] 8.4 mg/dL Normal 7.6-11.0 [facility] Comment on above: Performed By: #### L 500.2500, L501.2300, L100.0100, L501.5200 ####[facility] [address] [place], [address] Chloride [Moles/Vol] 103 mmol/L Normal 98-108 [facility] Comment on above: Performed By: #### L 500.2500, L501.2300, L100.0100, L501.5200 ####[facility] [address] [place], [address] CO2 [Moles/Vol] 23.0 mmol/L Normal 21.0-32.0 [facility] Comment on above: Performed By: #### L 500.2500, L501.2300, L100.0100, L501.5200 ####[facility] [address] [place], [address] Creatinine [Mass/Vol] 1.04 mg/dL Normal 0.70-1.20 [facility] Comment on above: Performed By: #### L 500.2500, L501.2300, L100.0100, L501.5200 ####[facility] [address] [place], [address] ECRCL 39.32 ml/min Low 50-250 [facility] Comment on above: Performed By: #### L 500.2500, L501.2300, L100.0100, L501.5200 ####[facility] [address] [place], [address] GAP 13 Normal 5-15 [facility] Comment on above: Performed By: #### L 500.2500, L501.2300, L100.0100, L501.5200 ####[facility] [address] [place], [address] GFR/1.73 sq M.predicted among non-blacks MDRD (S/P/Bld) [Vol rate/Area] 57 mL/min/{1.73_m2} Low >60 [facility] Comment on above: Result Comment: mL/m in/1.73m2 CKD-EPI Creatinine Equation (2020) Performed By: #### L 500.2500, L501.2300, L100.0100, L501.5200 ####[facility] [address] [place], [address] Glucose [Mass/Vol] 181 mg/dL High 70-99 [facility] Comment on above: Performed By: #### L 500.2500, L501.2300, L100.0100, L501.5200 ####[facility] [address] [place], [address] Potassium [Moles/Vol] 3.6 mmol/L Normal 3.3-5.1 [facility] Comment on above: Performed By: #### L 500.2500, L501.2300, L100.0100, L501.5200 ####[facility] [address] [place], [address] Sodium [Moles/Vol] 139 mmol/L Normal 133-145 [facility] Comment on above: Performed By: #### L 500.2500, L501.2300, L100.0100, L501.5200 ####[facility] [address] [place], [address] Urea nitrogen [Mass/Vol] 34 mg/dL High 4-19 [facility] Comment on above: Performed By: #### L 500.2500, L501.2300, L100.0100, L501.5200 ####[facility] [address] [place], [address] Bedside Glucoseon 07-18-2025 FINGERSTICK GLU 187 mg/dL High 74-106 [facility] Comment on above: Result Comment: CHERYL GEMENT OF PATIENT CARE PER NURSING PROTOCOL Performed By: #### L 501.080 ####[facility] [address] [place], [address] FINGERSTICK GLU 192 mg/dL High 74-106 [facility] Comment on above: Result Comment: CHERYL GEMENT OF PATIENT CARE PER NURSING PROTOCOL Performed By: #### L 501.080 ####[facility] [address] [place], [address] FINGERSTICK GLU 174 mg/dL High 74-106 [facility] Comment on above: Result Comment: CHERYL WILLS OF PATIENT CARE PER NURSING PROTOCOL Performed By: #### L 501.080 ####[facility] [address] [place], [address] CBC W/Diff, Automatedon 2 Absolute Lymph 0.59 X10 3/uL Low 0.83-4.51 [facility] Comment on above: Performed By: #### L 500.2500, L501.2300, L100.0100, L501.5200 ####[facility] [address] [place], [address] Absolute Neut 8.8 X10 3/uL High 2.0-7.7 [facility] Comment on above: Performed By: #### L 500.2500, L501.2300, L100.0100, L501.5200 ####[facility] [address] [place], [address] Basophils/100 WBC (Bld) 0.1 % Normal 0-1 [facility] Comment on above: Performed By: #### L 500.2500, L501.2300, L100.0100, L501.5200 ####[facility] [address] [place], [address] Eosinophils/100 WBC (Bld) 0.0 % Normal 0-5 [facility] Comment on above: Performed By: #### L 500.2500, L501.2300, L100.0100, L501.5200 ####[facility] [address] [place], [address] Erythrocyte distribution width (RBC) [Ratio] 15.3 % High 11.6-14.6 [facility] Comment on above: Performed By: #### L 500.2500, L501.2300, L100.0100, L501.5200 ####[facility] [address] [place], [address] Hematocrit (Bld) [Volume fraction] 32.7 % Low 37-47 [facility] Comment on above: Performed By: #### L 500.2500, L501.2300, L100.0100, L501.5200 ####[facility] [address] [place], [address] Hemoglobin (Bld) [Mass/Vol] 11.2 g/dL Low 12.0-15.0 [facility] Comment on above: Performed By: #### L 500.2500, L501.2300, L100.0100, L501.5200 ####[facility] [address] [place], [address] IG% 0.800 Normal 0.0-0.9 [facility] Comment on above: Result Comment: IG% - Immature Granulocytes (promyelocytes, myelocytes andmetamyelocytes) > 1% indicates that a LEFT SHIFT is Present. Performed By: #### L 500.2500, L501.2300, L100.0100, L501.5200 ####[facility] [address] [place], [address] Lymphocytes/100 WBC (Bld) 5.9 % Low 19-41 [facility] Comment on above: Performed By: #### L 500.2500, L501.2300, L100.0100, L501.5200 ####[facility] [address] [place], [address] MCH (RBC) [Entitic mass] 29.8 pg Normal 27.0-32.0 [facility] Comment on above: Performed By: #### L 500.2500, L501.2300, L100.0100, L501.5200 ####[facility] [address] [place], [address] MCHC (RBC) [Mass/Vol] 34.3 g/dL Normal 32-36 [facility] Comment on above: Performed By: #### L 500.2500, L501.2300, L100.0100, L501.5200 ####[facility] [address] [place], [address] MCV (RBC) [Entitic vol] 87.0 fL Normal 81-99 [facility] Comment on above: Performed By: #### L 500.2500, L501.2300, L100.0100, L501.5200 ####[facility] [address] [place], [address] Monocytes/100 WBC (Bld) 4.7 % Normal 0-10 [facility] Comment on above: Performed By: #### L 500.2500, L501.2300, L100.0100, L501.5200 ####[facility] [address] [place], [address] Neutrophils/100 WBC (Bld) 88.5 % High 47-70 [facility] Comment on above: Performed By: #### L 500.2500, L501.2300, L100.0100, L501.5200 ####[facility] [address] [place], [address] Nucleated RBC (Bld) [#/Vol] 0 10*3/uL Normal 0-5 [facility] Comment on above: Performed By: #### L 500.2500, L501.2300, L100.0100, L501.5200 ####[facility] [address] [place], [address] Platelet mean volume (Bld) [Entitic vol] 9.4 fL Normal 6.2-12.0 [facility] Comment on above: Performed By: #### L 500.2500, L501.2300, L100.0100, L501.5200 ####[facility] [address] [place], [address] Platelets (Bld) [#/Vol] 365 10*3/uL Normal 150-450 [facility] Comment on above: Performed By: #### L 500.2500, L501.2300, L100.0100, L501.5200 ####[facility] [address] [place], [address] RBC (Bld) [#/Vol] 3.76 10*6/uL Low 4.2-5.4 [facility] Comment on above: Performed By: #### L 500.2500, L501.2300, L100.0100, L501.5200 ####[facility] [address] [place], [address] RDW SD 48.1 fl High 35.1-43.9 [facility] Comment on above: Performed By: #### L 500.2500, L501.2300, L100.0100, L501.5200 ####[facility] [address] [place], [address] WBC (Bld) [#/Vol] 9.9 10*3/uL Normal 4.4-11.0 [facility] Comment on above: Performed By: #### L 500.2500, L501.2300, L100.0100, L501.5200 ####[facility] [address] [place], [address] Magnesiumon 07-18-2025 Magnesium [Mass/Vol] 2.4 mg/dL High 1.5-2.2 [facility] Comment on above: Performed By: #### L 500.2500, L501.2300, L100.0100, L501.5200 ####[facility] [address] [place], [address] Magnesium measurement (mass/ volume)Ordered By: Eleazar Valle on 07-18-2025 Magnesium (Unsp spec) [Mass/Vol] 2.4 mg/dL High 1.5-2.2 [facility] No Panel InformationOrdered By: Jack Haile on 07-18-2025 Comment . [facility] Phosphoruson 07-18-2025 Phosphate [Mass/Vol] 3.6 mg/dL Normal 2.7-4.5 [facility] Comment on above: Performed By: #### L 500.2500, L501.2300, L100.0100, L501.5200 ####[facility] [address] [place], [address] Respiratory Cultureon 2024 RESPC Mixed normal respiratory renu. No Streptococcus pneumoniae, beta-hemolytic Streptococcus or Staphylococcus aureus isolated. Normal [facility] Comment on above: Performed By: #### M 100.2400, M100.2000, M100.678, M100.2200 ####[facility] [address] [place], [address] Serum or plasma hepatitis B virus surface antigen detection by immunoassayOrdered By: Jack Haile on 07-18-2025 HBV surface Ag IA Ql Negative Negative [facility] Vancomycin, Trough Levelon 0 07-18-2025 VANCO, TROUGH 7.7 ug/mL Normal 5.0-15.0 [facility] Comment on above: Order Comment: Comme nts: Trough to be drawn 30 mins prior to scheduled [id number] Result Comment: Hank mmended goal trough ranges [...] therapy recommended for serious lifethreatening infections include:- Oclifmehwy-Kufsvzuykodc-Feemhbowq (Ventilator/Healtcare Associated)-SepsisPLEASE CONTACT PHARMACY SERVICES (#[id number]) FOR INTERPRETATIONOF RESULTS. Performed By: #### L 501.8820 ####[facility] [address] [place], [address] Basic Metabolic Profile (BMP )on 07-17-2025 BUN/CRE 22.6 RATIO High 10-20 [facility] Comment on above: Performed By: #### L 500.2500, L100.0100 ####[facility] [address] [place], [address] Calcium [Mass/Vol] 8.1 mg/dL Normal 7.6-11.0 [facility] Comment on above: Performed By: #### L 500.2500, L100.0100 ####[facility] [address] [place], [address] Chloride [Moles/Vol] 102 mmol/L Normal 98-108 [facility] Comment on above: Performed By: #### L 500.2500, L100.0100 ####[facility] [address] [place], [address] CO2 [Moles/Vol] 22.9 mmol/L Normal 21.0-32.0 [facility] Comment on above: Performed By: #### L 500.2500, L100.0100 ####[facility] [address] [place], [address] Creatinine [Mass/Vol] 1.30 mg/dL High 0.70-1.20 [facility] Comment on above: Performed By: #### L 500.2500, L100.0100 ####[facility] [address] [place], [address] ECRCL 29.63 ml/min Low 50-250 [facility] Comment on above: Performed By: #### L 500.2500, L100.0100 ####[facility] [address] [place], [address] GAP 15 Normal 5-15 [facility] Comment on above: Performed By: #### L 500.2500, L100.0100 ####[facility] [address] [place], [address] GFR/1.73 sq M.predicted among non-blacks MDRD (S/P/Bld) [Vol rate/Area] 44 mL/min/{1.73_m2} Low >60 [facility] Comment on above: Result Comment: mL/m in/1.73m2 CKD-EPI Creatinine Equation (2020) Performed By: #### L 500.2500, L100.0100 ####[facility] [address] [place], [address] Glucose [Mass/Vol] 149 mg/dL High 70-99 [facility] Comment on above: Performed By: #### L 500.2500, L100.0100 ####[facility] [address] [place], [address] Potassium [Moles/Vol] 3.0 mmol/L Low 3.3-5.1 [facility] Comment on above: Performed By: #### L 500.2500, L100.0100 ####[facility] [address] [place], [address] Sodium [Moles/Vol] 140 mmol/L Normal 133-145 [facility] Comment on above: Performed By: #### L 500.2500, L100.0100 ####[facility] [address] [place], [address] Urea nitrogen [Mass/Vol] 29 mg/dL High 4-19 [facility] Comment on above: Performed By: #### L 500.2500, L100.0100 ####[facility] [address] [place], [address] BUN Normal 4-19 [facility] Comment on above: Result Comment: DUPL ICATE Performed By: #### L 100.0100, L500.2500 ####[facility] [address] [place], [address] BUN/CRE Normal 10-20 [facility] Comment on above: Result Comment: DUPL ICATE Performed By: #### L 100.0100, L500.2500 ####[facility] [address] [place], [address] Calcium Normal 7.6-11.0 [facility] Comment on above: Result Comment: DUPL ICATE Performed By: #### L 100.0100, L500.2500 ####[facility] [address] [place], [address] CL Normal 98-108 [facility] Comment on above: Result Comment: DUPL ICATE Performed By: #### L 100.0100, L500.2500 ####[facility] [address] [place], [address] CO2 Normal 21.0-32.0 [facility] Comment on above: Result Comment: DUPL ICATE Performed By: #### L 100.0100, L500.2500 ####[facility] [address] [place], [address] CREAT,SERUM Normal 0.70-1.20 [facility] Comment on above: Result Comment: DUPL ICATE Performed By: #### L 100.0100, L500.2500 ####[facility] [address] [place], [address] eGFR Normal >60 [facility] Comment on above: Result Comment: DUPL ICATE Performed By: #### L 100.0100, L500.2500 ####[facility] [address] [place], [address] GAP Normal 5-15 [facility] Comment on above: Result Comment: DUPL ICATE Performed By: #### L 100.0100, L500.2500 ####[facility] [address] [place], [address] GLU Normal 70-99 [facility] Comment on above: Result Comment: DUPL ICATE Performed By: #### L 100.0100, L500.2500 ####[facility] [address] [place], [address] Potassium Normal 3.3-5.1 [facility] Comment on above: Result Comment: DUPL ICATE Performed By: #### L 100.0100, L500.2500 ####[facility] [address] [place], [address] Basic Metabolic Profile (BMP) Normal 133-145 [facility] Comment on above: Result Comment: DUPL ICATE Performed By: #### L 100.0100, L500.2500 ####[facility] [address] [place], [address] Bedside Glucoseon 07-17-2025 FINGERSTICK GLU 185 mg/dL High 74-106 [facility] Comment on above: Result Comment: CHERYL GEMENT OF PATIENT CARE PER NURSING PROTOCOL Performed By: #### L 501.080 ####[facility] [address] [place], [address] FINGERSTICK GLU 157 mg/dL High 74-106 [facility] Comment on above: Result Comment: CHERYL GEMENT OF PATIENT CARE PER NURSING PROTOCOL Performed By: #### L 501.080 ####[facility] [address] [place], [address] FINGERSTICK GLU 165 mg/dL High 74-106 [facility] Comment on above: Result Comment: Dr Geovanny pastrana FollowedInsulin GivenMANAGEMENT OF PATIENT CARE PER NURSING PROTOCOL Performed By: #### L 501.080 ####[facility] [address] [place], [address] FINGERSTICK GLU 156 mg/dL High 74-106 [facility] Comment on above: Result Comment: CHERYL GEMENT OF PATIENT CARE PER NURSING PROTOCOL Performed By: #### L 501.080 ####[facility] [address] [place], [address] FINGERSTICK GLU 153 mg/dL High 74-106 [facility] Comment on above: Result Comment: CHERYL GEMENT OF PATIENT CARE PER NURSING PROTOCOL Performed By: #### L 501.080 ####[facility] [address] [place], [address] CBC W/Diff, Automatedon 06-24-2024 Absolute Lymph 0.76 X10 3/uL Low 0.83-4.51 [facility] Comment on above: Performed By: #### L 500.2500, L100.0100 ####[facility] [address] [place], [address] Absolute Neut 7.0 X10 3/uL Normal 2.0-7.7 [facility] Comment on above: Performed By: #### L 500.2500, L100.0100 ####[facility] [address] [place], [address] Basophils/100 WBC (Bld) 0.1 % Normal 0-1 [facility] Comment on above: Performed By: #### L 500.2500, L100.0100 ####[facility] [address] [place], [address] Eosinophils/100 WBC (Bld) 0.0 % Normal 0-5 [facility] Comment on above: Performed By: #### L 500.2500, L100.0100 ####[facility] [address] [place], [address] Erythrocyte distribution width (RBC) [Ratio] 15.1 % High 11.6-14.6 [facility] Comment on above: Performed By: #### L 500.2500, L100.0100 ####[facility] [address] [place], [address] Hematocrit (Bld) [Volume fraction] 29.1 % Low 37-47 [facility] Comment on above: Performed By: #### L 500.2500, L100.0100 ####[facility] [address] [place], [address] Hemoglobin (Bld) [Mass/Vol] 9.8 g/dL Low 12.0-15.0 [facility] Comment on above: Performed By: #### L 500.2500, L100.0100 ####[facility] [address] [place], [address] IG% 0.400 Normal 0.0-0.9 [facility] Comment on above: Result Comment: IG% - Immature Granulocytes (promyelocytes, myelocytes andmetamyelocytes) > 1% indicates that a LEFT SHIFT is Present. Performed By: #### L 500.2500, L100.0100 ####[facility] [address] [place], [address] Lymphocytes/100 WBC (Bld) 9.1 % Low 19-41 [facility] Comment on above: Performed By: #### L 500.2500, L100.0100 ####[facility] [address] [place], [address] MCH (RBC) [Entitic mass] 29.3 pg Normal 27.0-32.0 [facility] Comment on above: Performed By: #### L 500.2500, L100.0100 ####[facility] [address] [place], [address] MCHC (RBC) [Mass/Vol] 33.7 g/dL Normal 32-36 [facility] Comment on above: Performed By: #### L 500.2500, L100.0100 ####[facility] [address] [place], [address] MCV (RBC) [Entitic vol] 87.1 fL Normal 81-99 [facility] Comment on above: Performed By: #### L 500.2500, L100.0100 ####[facility] [address] [place], [address] Monocytes/100 WBC (Bld) 6.3 % Normal 0-10 [facility] Comment on above: Performed By: #### L 500.2500, L100.0100 ####[facility] [address] [place], [address] Neutrophils/100 WBC (Bld) 84.1 % High 47-70 [facility] Comment on above: Performed By: #### L 500.2500, L100.0100 ####[facility] [address] [place], [address] Nucleated RBC (Bld) [#/Vol] 0 10*3/uL Normal 0-5 [facility] Comment on above: Performed By: #### L 500.2500, L100.0100 ####[facility] [address] [place], [address] Platelet mean volume (Bld) [Entitic vol] 9.7 fL Normal 6.2-12.0 [facility] Comment on above: Performed By: #### L 500.2500, L100.0100 ####[facility] [address] [place], [address] Platelets (Bld) [#/Vol] 352 10*3/uL Normal 150-450 [facility] Comment on above: Performed By: #### L 500.2500, L100.0100 ####[facility] [address] [place], [address] RBC (Bld) [#/Vol] 3.34 10*6/uL Low 4.2-5.4 [facility] Comment on above: Performed By: #### L 500.2500, L100.0100 ####[facility] [address] [place], [address] RDW SD 47.9 fl High 35.1-43.9 [facility] Comment on above: Performed By: #### L 500.2500, L100.0100 ####[facility] [address] [place], [address] WBC (Bld) [#/Vol] 8.4 10*3/uL Normal 4.4-11.0 [facility] Comment on above: Performed By: #### L 500.2500, L100.0100 ####[facility] [address] [place], [address] Absolute Neut Normal 2.0-7.7 [facility] Comment on above: Result Comment: DUPL ICATE Performed By: #### L 100.0100, L500.2500 ####[facility] [address] [place], [address] HCT Normal 37-47 [facility] Comment on above: Result Comment: DUPL ICATE Performed By: #### L 100.0100, L500.2500 ####[facility] [address] [place], [address] HGB Normal 12.0-15.0 [facility] Comment on above: Result Comment: DUPL ICATE Performed By: #### L 100.0100, L500.2500 ####[facility] [address] [place], [address] MCH Normal 27.0-32.0 [facility] Comment on above: Result Comment: DUPL ICATE Performed By: #### L 100.0100, L500.2500 ####[facility] [address] [place], [address] MCHC Normal 32-36 [facility] Comment on above: Result Comment: DUPL ICATE Performed By: #### L 100.0100, L500.2500 ####[facility] [address] [place], [address] MCV Normal 81-99 [facility] Comment on above: Result Comment: DUPL ICATE Performed By: #### L 100.0100, L500.2500 ####[facility] [address] [place], [address] NEUT% Normal 47-70 [facility] Comment on above: Result Comment: DUPL ICATE Performed By: #### L 100.0100, L500.2500 ####[facility] [address] [place], [address] PLT Normal 150-450 [facility] Comment on above: Result Comment: DUPL ICATE Performed By: #### L 100.0100, L500.2500 ####[facility] [address] [place], [address] RBC Normal 4.2-5.4 [facility] Comment on above: Result Comment: DUPL ICATE Performed By: #### L 100.0100, L500.2500 ####[facility] [address] [place], [address] RDW CV Normal 11.6-14.6 [facility] Comment on above: Result Comment: DUPL ICATE Performed By: #### L 100.0100, L500.2500 ####[facility] [address] [place], [address] RDW SD Normal 35.1-43.9 [facility] Comment on above: Result Comment: DUPL ICATE Performed By: #### L 100.0100, L500.2500 ####[facility] [address] [place], [address] WBC Normal 4.4-11.0 [facility] Comment on above: Result Comment: DUPL ICATE Performed By: #### L 100.0100, L500.2500 ####[facility] [address] [place], [place], [address] Chest 1 View (Portable)on Chest 1 View (Portable) Normal [facility] Electrocardiogram reportOrde red By: Rosy Colindres on 07-17-2025 EKG study [facility] Other Natriuretic peptide.B prohor clover N-Terminal [Mass/volume] in Serum or PlasmaOrdered By: Jack Haile on 07-17-2025 Natriuretic peptide.B prohormone N-Terminal [Mass/Vol] 6511 pg/mL High <900 [facility] Pro- Brain NATRIURETIC PEPTI Donna 07-17-2025 Natriuretic peptide B (Bld) [Mass/Vol] 6511 pg/mL High <=900 [facility] Comment on above: Result Comment: Hear t Failure Unlikely: < 300 pg/mLHeart Failure Likely< 50 Years: > 450 pg/mL50-75 Years: > 900 pg/mL>75 Years: > 1800 pg/mL Performed By: #### L 503.7505 ####[facility] [address] [place], [place], [address] Urine Cultureon 07-17-2025 URC Culture exhibits no growth. Normal [facility] Comment on above: Performed By: #### M 100.2400, M100.2000, M100.678, M100.2200 ####[facility] [address] [place], [address] 12 Lead EKGon 07-16-2025 12 Lead EKG Normal [facility] 12 Lead EKG Normal [facility] Abdomen/Pelvis without Conto n 07-16-2025 Abdomen/Pelvis without Cont Normal [facility] Assessment of wrist artery p atency prior to arterial punctureOrdered By: Gerard Santos on 07-16-2025 Arterial patency Wrist artery --pre arterial puncture N/A [facility] Bedside Glucoseon 07-16-2025 FINGERSTICK GLU 135 mg/dL High 74-106 [facility] Comment on above: Result Comment: CHERYL GEMENT OF PATIENT CARE PER NURSING PROTOCOL Performed By: #### L 501.080 ####[facility] [address] [place], [address] FINGERSTICK GLU 124 mg/dL High 74-106 [facility] Comment on above: Result Comment: CHERYL GEMENT OF PATIENT CARE PER NURSING PROTOCOL Performed By: #### L 501.080 ####[facility] [address] [place], [address] FINGERSTICK GLU 145 mg/dL High 74-106 [facility] Comment on above: Result Comment: CHERYL GEMENT OF PATIENT CARE PER NURSING PROTOCOL Performed By: #### L 501.080 ####[facility] [address] [place], [address] FINGERSTICK GLU 152 mg/dL High 74-106 [facility] Comment on above: Result Comment: CHERYL GEMENT OF PATIENT CARE PER NURSING PROTOCOL Performed By: #### L 501.080 ####[facility] [address] [place], [address] Bilirubin Test strip Ql (U)O rdered By: Jack Haile on 07-16-2025 Bilirubin Ql (U) Negative Negative [facility] Bilirubin, totalOrdered By: Bernardo Sharif on 07-16-2025 Bilirubin [Mass/Vol] 0.34 mg/dL 0.00-1.30 [facility] Blood Gases by CPSon 025 JUDITH TEST N/A Normal [facility] Comment on above: Performed By: #### L 9000.0800 ####[facility] [address] [place], [address] Base excess Calc (Bld) [Moles/Vol] 6 mmol/L High -2 to +2 [facility] Comment on above: Performed By: #### L 9000.0800 ####[facility] [address] [place], [address] Blood Gas Type ART Normal [facility] Comment on above: Performed By: #### L 9000.0800 ####[facility] [address] [place], [address] CO2 [Moles/Vol] 30 mmol/L Normal [facility] Comment on above: Performed By: #### L 9000.0800 ####[facility] [address] [place], [address] FI02 50.0 Normal [facility] Comment on above: Performed By: #### L 9000.0800 ####[facility] [address] [place], [address] HCO3 (Bld) [Moles/Vol] 29.1 mmol/L High 22-26 [facility] Comment on above: Performed By: #### L 9000.0800 ####[facility] [address] [place], [address] Mode AC Normal [facility] Comment on above: Performed By: #### L 9000.0800 ####[facility] [address] [place], [address] O2 Delivery Dev Adult Vent Normal [facility] Comment on above: Performed By: #### L 9000.0800 ####[facility] [address] [place], [address] pCO2 38.6 mmHg Normal 35-45 [facility] Comment on above: Performed By: #### L 9000.0800 ####[facility] [address] [place], [address] PEEP 5 Normal [facility] Comment on above: Performed By: #### L 9000.0800 ####[facility] [address] [place], [address] pH (Bld) 7.49 [pH] High 7.35-7.45 [facility] Comment on above: Performed By: #### L 9000.0800 ####[facility] [address] [place], [address] PO2 96 mmHG Normal 75-100 [facility] Comment on above: Performed By: #### L 9000.0800 ####[facility] [address] [place], [address] RR 20 Normal [facility] Comment on above: Performed By: #### L 9000.0800 ####[facility] [address] [place], [address] SITE L Radial Normal [facility] Comment on above: Performed By: #### L 9000.0800 ####[facility] [address] [place], [address] SO2 98 Normal 95-99 [facility] Comment on above: Performed By: #### L 9000.0800 ####[facility] [address] [place], [address] Vt 400.0 mL Normal [facility] Comment on above: Performed By: #### L 9000.0800 ####[facility] [address] [place], [address] JUDITH TEST N/A Normal [facility] Comment on above: Performed By: #### L 9000.0800 ####[facility] [address] [place], [address] Base excess Calc (Bld) [Moles/Vol] -9 mmol/L Low -2 to +2 [facility] Comment on above: Performed By: #### L 9000.0800 ####[facility] [address] [place], [address] Blood Gas Type ART Normal [facility] Comment on above: Performed By: #### L 0.0800 ####[facility] [address] [place], [address] CO2 [Moles/Vol] 24 mmol/L Normal [facility] Comment on above: Performed By: #### L 0.0800 ####[facility] [address] [place], [address] FI02 50.0 Normal [facility] Comment on above: Performed By: #### L 0.0800 ####[facility] [address] [place], [address] HCO3 (Bld) [Moles/Vol] 21.2 mmol/L Low 22-26 [facility] Comment on above: Performed By: #### L 0.0800 ####[facility] [address] [place], [address] Mode AC Normal [facility] Comment on above: Performed By: #### L 0.0800 ####[facility] [address] [place], [address] O2 Delivery Dev Adult Vent Normal [facility] Comment on above: Performed By: #### L 0.0800 ####[facility] [address] [place], [address] pCO2 75.1 mmHg Invalid Interpretation Code 35-45 [facility] Comment on above: Performed By: #### L 0.0800 ####[facility] [address] [place], [address] PEEP 5 Normal [facility] Comment on above: Performed By: #### L 0.0800 ####[facility] [address] [place], [address] pH (Bld) 7.06 [pH] Invalid Interpretation Code 7.35-7.45 [facility] Comment on above: Performed By: #### L 8999.0800 ####[facility] [address] [place], [address] PO2 73 mmHG Low 75-100 [facility] Comment on above: Performed By: #### L 8999.0800 ####[facility] [address] [place], [address] Read Back By Yes [facility] Comment on above: Performed By: #### L 8999.0800 ####[facility] [address] [place], [address] Sharif [facility] Comment on above: Performed By: #### L 8999.0800 ####[facility] [address] [place], [address] RR 20 [facility] Comment on above: Performed By: #### L 8999.0800 ####[facility] [address] [place], [address] SITE L Radial [facility] Comment on above: Performed By: #### L 8999.0800 ####[facility] [address] [place], [address] SO2 86 Low 95-99 [facility] Comment on above: Performed By: #### L 8999.0800 ####[facility] [address] [place], [address] Time Given 04:00:19 [facility] Comment on above: Performed By: #### L 0.0800 ####[facility] [address] [place], [address] Vt 400.0 mL [facility] Comment on above: Performed By: #### L 8999.0800 ####[facility] [address] [place], [address] Blood cultureOrdered By: Gissel romano Chante on 07-16-2025 Bacteria identified Cx Nom (Bld) No growth in 5 days. [facility] Bacteria identified Cx Nom (Bld) No growth in 5 days. [facility] Blood manual differential co mment interpretation (narrative result)Ordered By: Bernardo Chante on 07-16-2025 Manual differential comment Dandy (Bld) [Interp] SCANNED [facility] Brain/Head without Contrasto n 07-16-2025 Brain/Head without Contrast Normal [facility] CBC W/Diff, Automatedon 06-24 SMEAR COMMENT SCANNED Normal [facility] Comment on above: Result Comment: LYMP HOCYTOSIS PRESENT Performed By: #### L 503.6005, L501.4021, L100.0100 ####[facility] [address] [place], [place], [address] CPK Total, Creatine Kinaseon 07-16-2025 CPK TOTAL 126 U/L Normal 24- [facility] Comment on above: Order Comment: Comme nts: DC when propofol is d/c'd Performed By: #### L 501.5000, L501.3620 ####[facility] [address] [place], [place], [address] CTA Chest W/WO Contraston CTA Chest W/WO Contrast Normal [facility] Calculated very low density lipoprotein (VLDL) cholesterol measurementOrdered By: Jack Haile on 07-16-2025 Calculated very low density lipoprotein (VLDL) cholesterol measurement 20 mg/dL 5-40 [facility] Chest 1 View (Portable)on Chest 1 View (Portable) Normal [facility] Comprehensive Metabolic Prof ilon 07-16-2025 Albumin [Mass/Vol] 3.8 g/dL Normal 3.4-4.8 [facility] Comment on above: Performed By: #### L 500.4050, L503.7505 ####[facility] [address] [place], [place], [address] Albumin/Globulin [Mass ratio] 1.2 {ratio} Normal 0.9-2.4 [facility] Comment on above: Performed By: #### L 500.4050, L503.7505 ####[facility] [address] [place], [address] ALK PHOS 163 U/L High 35-104 [facility] Comment on above: Performed By: #### L 500.4050, L503.7505 ####[facility] [address] [place], [address] ALT [Catalytic activity/Vol] 118 U/L High <=34 [facility] Comment on above: Performed By: #### L 500.4050, L503.7505 ####[facility] [address] [place], [address] AST [Catalytic activity/Vol] 158 U/L High <=31 [facility] Comment on above: Result Comment: Hemo lysis present, Results??could be affected.?? Performed By: #### L 500.4050, L503.7505 ####[facility] [address] [place], [address] Bilirubin [Mass/Vol] 0.34 mg/dL Normal 0.00-1.30 [facility] Comment on above: Performed By: #### L 500.4050, L503.7505 ####[facility] [address] [place], [address] BUN/CRE 13.1 RATIO Normal 10-20 [facility] Comment on above: Performed By: #### L 500.4050, L503.7505 ####[facility] [address] [place], [address] Calcium [Mass/Vol] 8.5 mg/dL Normal 7.6-11.0 [facility] Comment on above: Performed By: #### L 500.4050, L503.7505 ####[facility] [address] [place], [address] Chloride [Moles/Vol] 100 mmol/L Normal 98-108 [facility] Comment on above: Performed By: #### L 500.4050, L503.7505 ####[facility] [address] [place], [address] CO2 [Moles/Vol] 21.7 mmol/L Normal 21.0-32.0 [facility] Comment on above: Performed By: #### L 500.4050, L503.7505 ####[facility] [address] [place], [address] Creatinine [Mass/Vol] 1.27 mg/dL High 0.70-1.20 [facility] Comment on above: Performed By: #### L 500.4050, L503.7505 ####[facility] [address] [place], [address] ECRCL 34.32 ml/min Low 50-250 [facility] Comment on above: Performed By: #### L 500.4050, L503.7505 ####[facility] [address] [place], [address] GAP 15 Normal 5-15 [facility] Comment on above: Performed By: #### L 500.4050, L503.7505 ####[facility] [address] [place], [address] GFR/1.73 sq M.predicted among non-blacks MDRD (S/P/Bld) [Vol rate/Area] 45 mL/min/{1.73_m2} Low >60 [facility] Comment on above: Result Comment: mL/m in/1.73m2 CKD-EPI Creatinine Equation (2020) Performed By: #### L 500.4050, L503.7505 ####[facility] [address] [place], [address] Globulin (S) [Mass/Vol] 3.1 g/dL Normal 2.2-4.2 [facility] Comment on above: Performed By: #### L 500.4050, L503.7505 ####[facility] [address] [place], [address] Glucose [Mass/Vol] 368 mg/dL High 70-99 [facility] Comment on above: Performed By: #### L 500.4050, L503.7505 ####[facility] [address] [place], [address] Potassium [Moles/Vol] 3.7 mmol/L Normal 3.3-5.1 [facility] Comment on above: Result Comment: Hemo lysis present, Results??could be affected.?? Performed By: #### L 500.4050, L503.7505 ####[facility] [address] [place], [address] Sodium [Moles/Vol] 137 mmol/L Normal 133-145 [facility] Comment on above: Performed By: #### L 500.4050, L503.7505 ####[facility] [address] [place], [address] T PROT 6.9 g/dL Normal 5.9-8.4 [facility] Comment on above: Performed By: #### L 500.4050, L503.7505 ####[facility] [address] [place], [address] Urea nitrogen [Mass/Vol] 17 mg/dL Normal 4-19 [facility] Comment on above: Performed By: #### L 500.4050, L503.7505 ####[facility] [address] [place], [address] Consultation - Intensiviston 07-16-2025 Consultation - [employer] Technician Normal [facility] Echo Completeon 07-16-2025 Echo Complete Normal [facility] Echocardiogram study reportO rdered By: Dashawn Christiansen on 07-16-2025 Study report [facility] Work Phone: Emergency Department Summary on 07-16-2025 Emergency Department Summary Normal [facility] Gram stainOrdered By: Bernardo Sharif on 07-16-2025 Microscopic observation Gram stain Nom (Unsp spec) [facility] H AND P Exam - Hospitaliston 07-16-2025 H&P Exam - Hospitalist Normal [facility] Hemoglobin A1con 07-16-2025 HbA1c (Bld) [Mass fraction] 6.1 % High <=5.6 [facility] Comment on above: Result Comment: Norm al < 5.7 % Prediabetic 5.7 - 6.4 % Diabetic >or= 6.5 % Please note range changes. Performed By: #### L 501.9915 ####[facility] [address] [place], [place], [address] Hemoglobin A1c percentageOrd ered By: Jack Haile on 07-16-2025 HbA1c (Bld) [Mass fraction] 6.1 % High <5.7 [facility] Influenza virus A and B and SARS-CoV-2 (COVID-19) and Respiratory syncytial virus RNAOrdered By: Bernardo Sharif on 07-16-2025 SARS-CoV-2 (COVID-19) RNA ALEJANDRO+probe Ql (Unsp spec) [facility] Ketones Test strip Ql (U)Ord ered By: Jack Haile on 07-16-2025 Ketones Ql (U) Negative Negative [facility] L501.4021on 07-16-2025 Trop T High Sen 114 ng/L Invalid Interpretation Code <=14 [facility] Comment on above: Result Comment: Crit ical Result(s) Called at:0517 by: MARTY ROWELLN TO GONZALOPARR??Results read back by same. Performed By: #### L 503.6005, L501.4021, L100.0100 ####[facility] [address] [place], [address] LDL calc ser/plasOrdered By: Jack Haile on 07-16-2025 Cholesterol in LDL [Mass/Vol] 146 mg/dL [facility] Lactic Acidon 07-16-2025 Lactate [Moles/Vol] 1.4 mmol/L Normal 0.0-2.0 [facility] Comment on above: Performed By: #### L 503.6005 ####[facility] [address] [place], [address] Lactate [Moles/Vol] 3.2 mmol/L Invalid Interpretation Code 0.0-2.0 [facility] Comment on above: Order Comment: Y Result Comment: Crit ical Result(s) Called at:0451 by: MARTY WINN TO GRETA Results read back by same. Performed By: #### L 503.6005, L501.4021, L100.0100 ####[facility] [address] [place], [address] Legionella Antigen Urineon 0 07-16-2025 LEGU Normal [facility] Comment on above: Performed By: #### M 300.4500, M100.638, M300.4600, L400.0001 ####[facility] [address] [place], [address] Lipid Profileon 07-16-2025 Cholesterol in LDL [Mass/Vol] 146 mg/dL Normal [facility] Comment on above: Order Comment: WG1 5 F Result Comment: Bord xpvrbq=219-395 mg/dL Higher Ntio=067 mg/dL or greaterFriedwald Equation for LDL-C Performed By: #### L 500.4100 ####[facility] [address] [place], [address] Cholesterol in VLDL [Mass/Vol] 20 mg/dL Normal 5-40 [facility] Comment on above: Order Comment: WG1 5 F Performed By: #### L 500.4100 ####[facility] [address] [place], [address] Triglyceride [Mass/Vol] 99 mg/dL Normal [facility] Comment on above: Order Comment: WG1 5 F Result Comment: The drugs N-Acetylcysteine and Metamizole may falselydepress this assay.Normal range: <150 mg/dLBorderline High: 150-199 mg/dLHigh: 200-499 mg/dLVery High: >500 mg/dL Performed By: #### L 500.4100 ####[facility] [address] [place], [address] M100.678on 07-16-2025 M100.678 SARS-CoV-2 (COVID 19 ) Negative INFLUENZA A Negative INFLUENZA B Negative RSV PCR Negative Normal [facility] Comment on above: Performed By: #### M 100.2400, M100.2000, M100.678, M100.2200 ####[facility] [address] [place], [address] M8200.1000on 07-16-2025 M8200.1000 Negative Normal [facility] Comment on above: Performed By: #### M 8200.1000 ####[facility] [address] [place], [address] Magnesiumon 07-16-2025 Magnesium [Mass/Vol] 2.8 mg/dL High 1.5-2.2 [facility] Comment on above: Performed By: #### L 501.5200 ####[facility] [address] [place], [address] Microbial respiratory cultur eOrdered By: Bernardo Sharif on 07-16-2025 Microorganism identified Cx Nom (Unsp spec) or Staphylococcus aureus isolated. [facility] Mucus LM Ql (Urine sed)Order ed By: Jack Haile on 07-16-2025 Mucus Ql (Urine sed) 0 SEEN /hpf [facility] Nasal methicillin resistant Staphylococcus aureus (MRSA) DNA detection by PCROrdered By: Eleazar Valle on 07-16-2025 MRSA DNA ALEJANDRO+probe Ql (Nose) [facility] Nitrite Test strip Ql (U)Ord ered By: Jack Haile on 07-16-2025 Nitrite Ql (U) Negative Negative [facility] No Panel InformationOrdered By: Bernardo Sharif on 07-16-2025 04:00:[address] [facility] [address] Sharif [facility] Yes [facility] 158 U/L High <32 [facility] Pro- Brain NATRIURETIC PEPTI Donna 07-16-2025 Natriuretic peptide B (Bld) [Mass/Vol] 7963 pg/mL High <=900 [facility] Comment on above: Result Comment: Hear t Failure Unlikely: < 300 pg/mLHeart Failure Likely< 50 Years: > 450 pg/mL50-75 Years: > 900 pg/mL>75 Years: > 1800 pg/mL Performed By: #### L 500.4050, L503.7505 ####[facility] [address] [place], [place], [id number] Protein Test strip Ql (U)Ord ered By: Jack Haile on 07-16-2025 Protein Ql (U) 30 mg/dl High Negative [facility] RESPIRATORY PANEL MOLECULARo n 07-16-2025 RP PANEL Normal [facility] Comment on above: Performed By: #### M 300.4500, M100.638, M300.4600, L400.0001 ####[facility] [address] [place], [place], [id number] Respiratory pathogens detect ion panel by molecular detection methodOrdered By: Jack Haile on 07-16-2025 Respiratory pathogens DNA and RNA panel ALEJANDRO+probe (Resp) [facility] Serum globulin measurementOr dered By: Bernardo Sharif on 07-16-2025 Globulin (S) [Mass/Vol] 3.1 g/dL 2.2-4.2 [facility] Serum or plasma alanine kinney otransferase (ALT) measurementOrdered By: Bernardo Sharif on 07-16-2025 ALT [Catalytic activity/Vol] 118 U/L High <35 [facility] Serum or plasma albumin erik urement (mass/volume)Ordered By: Bernardo Sharif on 07-16-2025 Albumin [Mass/Vol] 3.8 g/dL 3.4-4.8 [facility] Serum or plasma albumin/glob ulin mass ratioOrdered By: Bernardo Sharif on 07-16-2025 Albumin/Globulin [Mass ratio] 1.2 {ratio} 0.9-2.4 [facility] Serum or plasma alkaline chris sphatase measurementOrdered By: Bernardo Sharif on 07-16-2025 ALP [Catalytic activity/Vol] 163 U/L High 35-104 [facility] Serum or plasma cholesterol in HDL measurement (mass/volume)Ordered By: Jack Haile on 07-16-2025 Cholesterol in HDL [Mass/Vol] 67 mg/dL >40 [facility] Serum or plasma cholesterol measurement (mass/volume)Ordered By: Jack Haile on 07-16-2025 Cholesterol [Mass/Vol] 233 mg/dL High <201 [facility] Serum or plasma creatine kin ase activityOrdered By: Bernardo Sharif on 07-16-2025 CK [Catalytic activity/Vol] 126 U/L 24-195 [facility] Squamous epithelial cells de tection in urine sediment by light microscopyOrdered By: Jack Haile on 07-16-2025 Epithelial cells.squamous LM Ql (Urine sed) 0 SEEN /hpf 5-10 [facility] Strep pneumoniae Antig(UR,CS F)on 07-16-2025 STPAG Normal [facility] Comment on above: Performed By: #### M 300.4500, M100.638, M300.4600, L400.0001 ####[facility] [address] [place], [address] Total proteinOrdered By: Jaime Sharif on 07-16-2025 Protein [Mass/Vol] 6.9 g/dL 5.9-8.4 [facility] Triglycerideson 07-16-2025 Triglyceride [Mass/Vol] 67 mg/dL Normal [facility] Comment on above: Order Comment: Comme nts: DC when propofol is d/c'dDC when propofol is d/c'd Result Comment: The drugs N-Acetylcysteine and Metamizole may falselydepress this assay.Normal range: <150 mg/dLBorderline High: 150-199 mg/dLHigh: 200-499 mg/dLVery High: >500 mg/dL Performed By: #### L 501.5000, L501.3620 ####[facility] [address] [place], [address] Troponin T HS 2 HRon 025 Trop T High Sen 95 ng/L Invalid Interpretation Code <=14 [facility] Comment on above: Result Comment: Crit ical Result(s) Called at: 0622 by:??MARTY MIMS Results read back by same. Performed By: #### L 499.0042 ####[facility] [address] [place], [address] Troponin T HS 4 HRon 025 Trop T High Sen 93 ng/L Invalid Interpretation Code <=14 [facility] Comment on above: Result Comment: Crit ical Result(s) Called at: 0946 07/16/2025 by: JOSE ??Results read back by same. Performed By: #### L 499.0043 ####[facility] [address] [place], [address] Trop T High Sen Normal <=14 [facility] Comment on above: Result Comment: DUPL ICATE ORDER. Performed By: #### L 499.0043 ####[facility] [address] [place], [address] Troponin T.cardiac [Mass/vol ume] in Serum or Plasma by High sensitivity methodOrdered By: Jack Haile on 07-16-2025 Troponin T.cardiac High sensitivity method [Mass/Vol] 93 ng/L Critically high <14 [facility] Troponin T.cardiac [Mass/vol ume] in Serum or Plasma by High sensitivity methodOrdered By: Bernardo Sharif on 07-16-2025 Troponin T.cardiac High sensitivity method [Mass/Vol] 95 ng/L Critically high <14 [facility] Troponin T.cardiac High sensitivity method [Mass/Vol] 114 ng/L Critically high <14 [facility] Urinalysis, Completeon 07-16 BACTERIA 0 SEEN Normal None Seen [facility] Comment on above: Order Comment: DAVINA TER SPECIMEN Performed By: #### M 300.4500, M100.638, M300.4600, L400.0001 ####[facility] [address] [place], [address] EPI,SQUAMOUS 0 SEEN Normal 5-10 [facility] Comment on above: Order Comment: DAVINA TER SPECIMEN Performed By: #### M 300.4500, M100.638, M300.4600, L400.0001 ####[facility] [address] [place], [address] Mucus Ql (Urine sed) 0 SEEN Normal [facility] Comment on above: Order Comment: DAVINA TER SPECIMEN Performed By: #### M 300.4500, M100.638, M300.4600, L400.0001 ####[facility] [address] [place], [address] RBC 0 SEEN Normal 0-5 [facility] Comment on above: Order Comment: DAVINA TER SPECIMEN Performed By: #### M 300.4500, M100.638, M300.4600, L400.0001 ####[facility] [address] [place], [address] WBC 0 SEEN Normal 0-5 [facility] Comment on above: Order Comment: DAVINA TER SPECIMEN Performed By: #### M 300.4500, M100.638, M300.4600, L400.0001 ####[facility] [address] [place], [address] Urine Legionella pneumophila antigen detectionOrdered By: Jack Haile on 07-16-2025 L. pneumophila Ag Ql (U) [facility] Urine clarityOrdered By: Nate Haile on 07-16-2025 Clarity (U) Clear Clear [facility] Urine color determinationOrd ered By: Jack Haile on 07-16-2025 Color (U) Straw Yellow [facility] Urine cultureOrdered By: Jaime Sharif on 07-16-2025 Bacteria identified Cx Nom (U) Culture exhibits no growth. [facility] Urine glucose detectionOrder ed By: Jack Haile on 07-16-2025 Glucose Ql (U) Normal mg/dl Normal [facility] Urine leukocyte esterase det ection by dipstickOrdered By: Jack Haile on 07-16-2025 Leukocyte esterase Test strip Ql (U) Negative Negative [facility] Urine pHOrdered By: Jack portillo on 07-16-2025 pH (U) 7.0 [pH] 5.0 - 8.0 [facility] Urine sediment bacteria coun t by microscopy (number/high power field)Ordered By: Jack Haile on 07-16-2025 Bacteria LM.HPF (Urine sed) [#/Area] 0 /[HPF] None Seen [facility] Urine specific gravity measu rementOrdered By: Jack Haile on 07-16-2025 Specific gravity (U) [Rel density] 1.005 1.002-1.030 [facility] Urine urobilinogen measureme ntOrdered By: Jack Haile on 07-16-2025 Urobilinogen Ql (U) Normal mg/dl Normal [facility] White blood cell countOrdere d By: Jack Haile on 07-16-2025 White blood cell count 0 SEEN /hpf 0-5 [facility] .Auto Diffon 06-25-2025 Basophil, Absolute 0.0 10 3/mcL Normal 0.0-0.3 [facility] Comment on above: Performed By: #### C BC, ADIFF, ANEU, APTT, CMP, HFP, GFR #### [address] [address] Basophils/100 WBC (Bld) 0.1 % Normal 0.0-2.5 [facility] Comment on above: Performed By: #### C BC, ADIFF, ANEU, APTT, CMP, HFP, GFR #### [address] [address] Eosinophil, Absolute 0.0 10 3/mcL Normal 0.0-0.7 [facility] Comment on above: Performed By: #### C BC, ADIFF, ANEU, APTT, CMP, HFP, GFR #### [address] [address] Eosinophils/100 WBC (Bld) 0.2 % Normal 0.0-6.0 [facility] Comment on above: Performed By: #### C BC, ADIFF, ANEU, APTT, CMP, HFP, GFR #### [address] [address] Lymphocyte, Absolute 0.9 10 3/mcL Normal 0.9-4.3 [facility] Comment on above: Performed By: #### C BC, ADIFF, ANEU, APTT, CMP, HFP, GFR #### [address] [address] Lymphocytes/100 WBC (Bld) 9.0 % Low 20.0-40.0 [facility] Comment on above: Performed By: #### C BC, ADIFF, ANEU, APTT, CMP, HFP, GFR #### [address] [address] Monocyte, Absolute 0.4 10 3/mcL Normal 0.1-1.4 [facility] Comment on above: Performed By: #### C BC, ADIFF, ANEU, APTT, CMP, HFP, GFR #### [address] [address] Monocytes/100 WBC (Bld) 3.9 % Normal 2.0-13.0 [facility] Comment on above: Performed By: #### C BC, ADIFF, ANEU, APTT, CMP, HFP, GFR #### [address] [address] Neutrophils/100 WBC (Bld) 86.8 % High 50.0-75.0 [facility] Comment on above: Performed By: #### C BC, ADIFF, ANEU, APTT, CMP, HFP, GFR #### [address] [address] .GFRon 09-03-2025 Estimated Glomerular Filtration Rate 63 ml/min/1.73sqm Normal [facility] Comment on above: Result Comment: [...] ADIFF, ANEU, APTT, CMP, HFP, GFR #### [address] [address] .NEUABSon 06-25-2025 Neutrophil, Absolute 8.6 10 3/mcL High 2.3-8.1 [facility] Comment on above: Performed By: #### C BC, ADIFF, ANEU, APTT, CMP, HFP, GFR #### [address] [address] BMPon 06-25-2025 BUN/Creatinine Ratio 19.8 ratio Normal 10.0-22.0 [facility] Comment on above: Performed By: #### C BC, ADIFF, ANEU, APTT, CMP, HFP, GFR #### [place] [id number] [place] [address] Calcium [Mass/Vol] 8.8 mg/dL Normal 8.7-10.4 [facility] Comment on above: Performed By: #### C BC, ADIFF, ANEU, APTT, CMP, HFP, GFR #### [place] [id number] [place] [address] Chloride [Moles/Vol] 104 mmol/L Normal 98-110 [facility] Comment on above: Performed By: #### C BC, ADIFF, ANEU, APTT, CMP, HFP, GFR #### [address] [address] CO2 [Moles/Vol] 24 mmol/L Normal 22-32 [facility] Comment on above: Performed By: #### C BC, ADIFF, ANEU, APTT, CMP, HFP, GFR #### [address] [address] Creatinine [Mass/Vol] 0.96 mg/dL Normal 0.50-1.20 [facility] Comment on above: Result Comment: Test ing performed on Degordian analyzer using enzymatic creatinine methodology. Performed By: #### C BC, ADIFF, ANEU, APTT, CMP, HFP, GFR #### [address] [address] Electrolyte Balance 9.0 mEq/L Normal 4.0-15.0 [facility] Comment on above: Performed By: #### C BC, ADIFF, ANEU, APTT, CMP, HFP, GFR #### [address] [address] Glucose [Mass/Vol] 134 mg/dL High 82-115 [facility] Comment on above: Performed By: #### C BC, ADIFF, ANEU, APTT, CMP, HFP, GFR #### [address] [address] Potassium [Moles/Vol] 4.6 mmol/L Normal 3.5-5.0 [facility] Comment on above: Performed By: #### C BC, ADIFF, ANEU, APTT, CMP, HFP, GFR #### [address] [address] Sodium [Moles/Vol] 137 mmol/L Normal 136-145 [facility] Comment on above: Performed By: #### C BC, ADIFF, ANEU, APTT, CMP, HFP, GFR #### [address] [address] Urea nitrogen [Mass/Vol] 19.0 mg/dL Normal 8.0-22.0 [facility] Comment on above: Performed By: #### C BC, ADIFF, ANEU, APTT, CMP, HFP, GFR #### [place] [address] CBCon 06-25-2025 Erythrocyte distribution width (RBC) [Ratio] 14.7 % Normal 11.5-15.5 [facility] Comment on above: Performed By: #### C BC, ADIFF, ANEU, APTT, CMP, HFP, GFR #### [place] [address] Hematocrit (Bld) [Volume fraction] 33.3 % Low 34.0-46.0 [facility] Comment on above: Performed By: #### C BC, ADIFF, ANEU, APTT, CMP, HFP, GFR #### [place] [address] Hgb 11.1 G/dL Low 12.0-16.0 [facility] Comment on above: Performed By: #### C BC, ADIFF, ANEU, APTT, CMP, HFP, GFR #### [place] [address] MCH (RBC) [Entitic mass] 29.4 pg Normal 27.0-33.0 [facility] Comment on above: Performed By: #### C BC, ADIFF, ANEU, APTT, CMP, HFP, GFR #### [place] [address] MCHC 33.3 G/dL Normal 32.0-36.0 [facility] Comment on above: Performed By: #### C BC, ADIFF, ANEU, APTT, CMP, HFP, GFR #### [place] [address] MCV (RBC) [Entitic vol] 88.5 fL Normal 80.0-99.0 [facility] Comment on above: Performed By: #### C BC, ADIFF, ANEU, APTT, CMP, HFP, GFR #### [place] [address] Platelet 341 10 3/mcL Normal 150-450 [facility] Comment on above: Performed By: #### C BC, ADIFF, ANEU, APTT, CMP, HFP, GFR #### [place] [address] Platelet mean volume (Bld) [Entitic vol] 8.0 fL Normal 6.6-10.5 [facility] Comment on above: Performed By: #### C BC, ADIFF, ANEU, APTT, CMP, HFP, GFR #### [place] [id number] [place] [address] RBC 3.77 10 6/mcL Low 4.10-5.30 [facility] Comment on above: Performed By: #### C BC, ADIFF, ANEU, APTT, CMP, HFP, GFR #### [place] [id number] [place] [address] WBC 10.0 10 3/mcL Normal 4.5-10.8 [facility] Comment on above: Performed By: #### C BC, ADIFF, ANEU, APTT, CMP, HFP, GFR #### [place] [address] LABORATORYOrdered By: SYSTEM SYSTEM on 06-25-2025 Basophils [...] above: Interpretive Data: T esting performed on Degordian analyzer using enzymatic creatinine methodology. Electrolyte Balance [...] 06-25-2025 Magnesium [Mass/Vol] 2.0 mg/dL Normal 1.6-2.4 [facility] Comment on above: Performed By: #### C BC, ADIFF, ANEU, APTT, CMP, HFP, GFR #### [address] [address] .Auto Diffon 06-24-2025 Basophil, Absolute 0.0 10 3/mcL Normal 0.0-0.3 [facility] Comment on above: Performed By: #### L AC #### [address] [address] Basophils/100 WBC (Bld) 0.2 % Normal 0.0-2.5 [facility] Comment on above: Performed By: #### L AC #### [address] [address] Eosinophil, Absolute 0.2 10 3/mcL Normal 0.0-0.7 [facility] Comment on above: Performed By: #### L AC #### [address] [address] Eosinophils/100 WBC (Bld) 1.8 % Normal 0.0-6.0 [facility] Comment on above: Performed By: #### L AC #### [facility] [address] [place] [address] Lymphocyte, Absolute 4.1 10 3/mcL Normal 0.9-4.3 [facility] Comment on above: Performed By: #### L AC #### [facility] [address] [place] [address] Lymphocytes/100 WBC (Bld) 31.0 % Normal 20.0-40.0 [facility] Comment on above: Performed By: #### L AC #### [facility] [address] [place] [address] Monocyte, Absolute 1.0 10 3/mcL Normal 0.1-1.4 [facility] Comment on above: Performed By: #### L AC #### [address] [address] Monocytes/100 WBC (Bld) 7.6 % Normal 2.0-13.0 [facility] Comment on above: Performed By: #### L AC #### [address] [address] Neutrophils/100 WBC (Bld) 59.4 % Normal 50.0-75.0 [facility] Comment on above: Performed By: #### L AC #### [address] [address] .GFRon 06-24-2025 Estimated Glomerular Filtration Rate 60 ml/min/1.73sqm Normal [facility] Comment on above: Result Comment: [...] results. Performed By: #### L AC #### [address] [address] .NEUABSon 06-24-2025 Neutrophil, Absolute 7.9 10 3/mcL Normal 2.3-8.1 [facility] Comment on above: Performed By: #### L AC #### [place] [address] APTTon 06-24-2025 aPTT Coag (Bld) [Time] 68.0 s High 25.0-35.0 [facility] Comment on above: Result Comment: For Heparin anticoagulation therapy, the recommended therapeutic range is: 54-77 seconds (APTT Correlation with Anti-Xa therapeutic range of 0.3-0.7 units/ml). PLEASE REFERENCE THE PHARMACY PROTOCOL FOR DOSING. Performed By: #### A PTT ####[place] [address] aPTT Coag (Bld) [Time] 52.5 s High 25.0-35.0 [facility] Comment on above: Result Comment: For Heparin anticoagulation therapy, the recommended therapeutic range is: 54-77 seconds (APTT Correlation with Anti-Xa therapeutic range of 0.3-0.7 units/ml). PLEASE REFERENCE THE PHARMACY PROTOCOL FOR DOSING. Performed By: #### L AC #### [place] [address] aPTT Coag (Bld) [Time] 48.2 s High 25.0-35.0 [facility] Comment on above: Result Comment: For Heparin anticoagulation therapy, the recommended therapeutic range is: 54-77 seconds (APTT Correlation with Anti-Xa therapeutic range of 0.3-0.7 units/ml). PLEASE REFERENCE THE PHARMACY PROTOCOL FOR DOSING. Performed By: #### A PTT #### [place] [address] CBCon 06-24-2025 Erythrocyte distribution width (RBC) [Ratio] 14.3 % Normal 11.5-15.5 [facility] Comment on above: Performed By: #### L AC #### [place] [address] Hematocrit (Bld) [Volume fraction] 36.2 % Normal 34.0-46.0 [facility] Comment on above: Performed By: #### L AC #### [place] [address] Hgb 11.9 G/dL Low 12.0-16.0 [facility] Comment on above: Performed By: #### L AC #### [place] [id number] MCH (RBC) [Entitic mass] 29.1 pg Normal 27.0-33.0 [facility] Comment on above: Performed By: #### L AC #### [place] [address] MCHC 32.9 G/dL Normal 32.0-36.0 [facility] Comment on above: Performed By: #### L AC #### [place] [address] MCV (RBC) [Entitic vol] 88.3 fL Normal 80.0-99.0 [facility] Comment on above: Performed By: #### L AC #### [place] [id number] Platelet 371 10 3/mcL Normal 150-450 [facility] Comment on above: Performed By: #### L AC #### [place] [id number] Platelet mean volume (Bld) [Entitic vol] 8.1 fL Normal 6.6-10.5 [facility] Comment on above: Performed By: #### L AC #### [place] [id number] RBC 4.10 10 6/mcL Normal 4.10-5.30 [facility] Comment on above: Performed By: #### L AC #### [place] [id number] WBC 13.3 10 3/mcL High 4.5-10.8 [facility] Comment on above: Performed By: #### L AC #### [place] [id number] CMPon 06-24-2025 Albumin Level 3.5 G/dL Normal 3.2-4.8 [facility] Comment on above: Performed By: #### L AC #### [address] [address] Albumin/Globulin [Mass ratio] 1.2 {ratio} Normal 0.9-1.6 [facility] Comment on above: Performed By: #### L AC #### [address] [address] ALP [Catalytic activity/Vol] 69 U/L Normal 38-126 [facility] Comment on above: Performed By: #### L AC #### [address] [address] ALT [Catalytic activity/Vol] 74 U/L High 10-49 [facility] Comment on above: Performed By: #### L AC #### [address] [address] AST [Catalytic activity/Vol] 44 U/L High 8-34 [facility] Comment on above: Performed By: #### L AC #### [address] [address] Bili Total 0.40 mg/dL Normal 0.20-1.20 [facility] Comment on above: Result Comment: Use of this assay is not recommended for patients undergoing treatment with eltrombopag due to the potential for falsely elevated results. Performed By: #### L AC #### [place] [id number] BUN/Creatinine Ratio 19.0 ratio Normal 10.0-22.0 [facility] Comment on above: Performed By: #### L AC #### [address] [address] Calcium [Mass/Vol] 9.2 mg/dL Normal 8.7-10.4 [facility] Comment on above: Performed By: #### L AC #### [place] [id number] Chloride [Moles/Vol] 102 mmol/L Normal 98-110 [facility] Comment on above: Performed By: #### L AC #### [place] [address] [address] CO2 [Moles/Vol] 30 mmol/L Normal 22-32 [facility] Comment on above: Performed By: #### L AC #### [address] [address] Creatinine [Mass/Vol] 1.00 mg/dL Normal 0.50-1.20 [facility] Comment on above: Result Comment: Test ing performed on Degordian analyzer using enzymatic creatinine methodology. Performed By: #### L AC #### [address] [address] Electrolyte Balance 7.0 mEq/L Normal 4.0-15.0 [facility] Comment on above: Performed By: #### L AC #### [address] [address] Globulin 3.0 G/dL Normal 2.5-4.2 [facility] Comment on above: Performed By: #### L AC #### [address] [address] Glucose [Mass/Vol] 91 mg/dL Normal 82-115 [facility] Comment on above: Performed By: #### L AC #### [address] [address] Potassium [Moles/Vol] 3.8 mmol/L Normal 3.5-5.0 [facility] Comment on above: Performed By: #### L AC #### [address] [address] Sodium [Moles/Vol] 139 mmol/L Normal 136-145 [facility] Comment on above: Performed By: #### L AC #### [address] [address] Total Protein 6.5 G/dL Normal 5.7-8.2 [facility] Comment on above: Performed By: #### L AC #### [address] [address] Urea nitrogen [Mass/Vol] 19.0 mg/dL Normal 8.0-22.0 [facility] Comment on above: Performed By: #### L AC #### [place] [address] LABORATORYOrdered By: SYSTEM SYSTEM on 06-24-2025 aPTT [...] above: Interpretive Data: T esting performed on Degordian analyzer using enzymatic creatinine methodology. Electrolyte Balance [...] 06-24-2025 Magnesium [Mass/Vol] 2.2 mg/dL Normal 1.6-2.4 [facility] Comment on above: Performed By: #### L AC #### [address] [address] .Auto Diffon 06-23-2025 Basophil, Absolute 0.1 10 3/mcL Normal 0.0-0.3 [facility] Comment on above: Performed By: #### A PTT #### [address] [address] Basophils/100 WBC (Bld) 0.5 % Normal 0.0-2.5 [facility] Comment on above: Performed By: #### A PTT #### [address] [address] Eosinophil, Absolute 0.2 10 3/mcL Normal 0.0-0.7 [facility] Comment on above: Performed By: #### A PTT #### [address] [address] Eosinophils/100 WBC (Bld) 2.0 % Normal 0.0-6.0 [facility] Comment on above: Performed By: #### A PTT #### [address] [address] Lymphocyte, Absolute 3.7 10 3/mcL Normal 0.9-4.3 [facility] Comment on above: Performed By: #### A PTT #### [address] [address] Lymphocytes/100 WBC (Bld) 31.3 % Normal 20.0-40.0 [facility] Comment on above: Performed By: #### A PTT #### [address] [address] Monocyte, Absolute 1.0 10 3/mcL Normal 0.1-1.4 [facility] Comment on above: Performed By: #### A PTT #### [address] [address] Monocytes/100 WBC (Bld) 8.2 % Normal 2.0-13.0 [facility] Comment on above: Performed By: #### A PTT #### [address] [address] Neutrophils/100 WBC (Bld) 58.0 % Normal 50.0-75.0 [facility] Comment on above: Performed By: #### A PTT #### [address] [address] .GFRon 06-23-2025 Estimated Glomerular Filtration Rate 59 ml/min/1.73sqm Normal [facility] Comment on above: Result Comment: [...] results. Performed By: #### A PTT #### [address] [address] .NEUABSon 06-23-2025 Neutrophil, Absolute 6.9 10 3/mcL Normal 2.3-8.1 [facility] Comment on above: Performed By: #### A PTT #### [place] [id number] APTTon 06-23-2025 aPTT Coag (Bld) [Time] 52.7 s High 25.0-35.0 [facility] Comment on above: Result Comment: For Heparin anticoagulation therapy, the recommended therapeutic range is: 54-77 seconds (APTT Correlation with Anti-Xa therapeutic range of 0.3-0.7 units/ml). PLEASE REFERENCE THE PHARMACY PROTOCOL FOR DOSING. Performed By: #### L AC #### [place] [id number] aPTT Coag (Bld) [Time] 67.1 s High 25.0-35.0 [facility] Comment on above: Result Comment: For Heparin anticoagulation therapy, the recommended therapeutic range is: 54-77 seconds (APTT Correlation with Anti-Xa therapeutic range of 0.3-0.7 units/ml). PLEASE REFERENCE THE PHARMACY PROTOCOL FOR DOSING. Performed By: #### A PTT ####[address] [address] aPTT Coag (Bld) [Time] 50.7 s High 25.0-35.0 [facility] Comment on above: Result Comment: For Heparin anticoagulation therapy, the recommended therapeutic range is: 54-77 seconds (APTT Correlation with Anti-Xa therapeutic range of 0.3-0.7 units/ml). PLEASE REFERENCE THE PHARMACY PROTOCOL FOR DOSING. Performed By: #### C BC, ADIFF, ANEU, APTT, CMP, HFP, GFR #### [address] [address] BMPon 06-23-2025 BUN/Creatinine Ratio 24.5 ratio High 10.0-22.0 [facility] Comment on above: Performed By: #### A PTT #### [address] [address] Calcium [Mass/Vol] 9.0 mg/dL Normal 8.7-10.4 [facility] Comment on above: Performed By: #### A PTT #### [address] [address] Chloride [Moles/Vol] 104 mmol/L Normal 98-110 [facility] Comment on above: Performed By: #### A PTT #### [address] [address] CO2 [Moles/Vol] 29 mmol/L Normal 22-32 [facility] Comment on above: Performed By: #### A PTT #### [address] [address] Creatinine [Mass/Vol] 1.02 mg/dL Normal 0.50-1.20 [facility] Comment on above: Result Comment: Test ing performed on Degordian analyzer using enzymatic creatinine methodology. Performed By: #### A PTT #### [address] [address] Electrolyte Balance 5.0 mEq/L Normal 4.0-15.0 [facility] Comment on above: Performed By: #### A PTT #### [address] [address] Glucose [Mass/Vol] 90 mg/dL Normal 82-115 [facility] Comment on above: Performed By: #### A PTT #### [address] [address] Potassium [Moles/Vol] 4.5 mmol/L Normal 3.5-5.0 [facility] Comment on above: Performed By: #### A PTT #### [address] [address] Sodium [Moles/Vol] 138 mmol/L Normal 136-145 [facility] Comment on above: Performed By: #### A PTT #### [place] [id number] Urea nitrogen [Mass/Vol] 25.0 mg/dL High 8.0-22.0 [facility] Comment on above: Performed By: #### A PTT #### [address] [address] CBCon 06-23-2025 Erythrocyte distribution width (RBC) [Ratio] 14.1 % Normal 11.5-15.5 [facility] Comment on above: Performed By: #### A PTT #### [address] [address] Hematocrit (Bld) [Volume fraction] 34.8 % Normal 34.0-46.0 [facility] Comment on above: Performed By: #### A PTT #### [address] [address] Hgb 11.4 G/dL Low 12.0-16.0 [facility] Comment on above: Performed By: #### A PTT #### [address] [address] MCH (RBC) [Entitic mass] 28.8 pg Normal 27.0-33.0 [facility] Comment on above: Performed By: #### A PTT #### [place] [address] MCHC 32.7 G/dL Normal 32.0-36.0 [facility] Comment on above: Performed By: #### A PTT #### [place] [address] MCV (RBC) [Entitic vol] 87.9 fL Normal 80.0-99.0 [facility] Comment on above: Performed By: #### A PTT #### [place] [address] Platelet 324 10 3/mcL Normal 150-450 [facility] Comment on above: Performed By: #### A PTT #### [place] [address] Platelet mean volume (Bld) [Entitic vol] 8.7 fL Normal 6.6-10.5 [facility] Comment on above: Performed By: #### A PTT #### [place] [address] RBC 3.96 10 6/mcL Low 4.10-5.30 [facility] Comment on above: Performed By: #### A PTT #### [place] [address] WBC 11.8 10 3/mcL High 4.5-10.8 [facility] Comment on above: Performed By: #### A PTT #### [place] [address] LABORATORYOrdered By: SYSTEM SYSTEM on 06-23-2025 Basophils [...] above: Interpretive Data: T esting performed on Degordian analyzer using enzymatic creatinine methodology. Electrolyte Balance [...] 06-23-2025 Magnesium [Mass/Vol] 2.3 mg/dL Normal 1.6-2.4 [facility] Comment on above: Performed By: #### A PTT #### [address] [address] .Auto Diffon 06-22-2025 Basophil, Absolute 0.0 10 3/mcL Normal 0.0-0.3 [facility] Comment on above: Performed By: #### L AC #### [address] [address] Basophils/100 WBC (Bld) 0.6 % Normal 0.0-2.5 [facility] Comment on above: Performed By: #### L AC #### [address] [address] Eosinophil, Absolute 0.0 10 3/mcL Normal 0.0-0.7 [facility] Comment on above: Performed By: #### L AC #### [address] [address] Eosinophils/100 WBC (Bld) 0.4 % Normal 0.0-6.0 [facility] Comment on above: Performed By: #### L AC #### [address] [address] Lymphocyte, Absolute 1.7 10 3/mcL Normal 0.9-4.3 [facility] Comment on above: Performed By: #### L AC #### [address] [address] Lymphocytes/100 WBC (Bld) 23.0 % Normal 20.0-40.0 [facility] Comment on above: Performed By: #### L AC #### [address] [address] Monocyte, Absolute 0.7 10 3/mcL Normal 0.1-1.4 [facility] Comment on above: Performed By: #### L AC #### [address] [address] Monocytes/100 WBC (Bld) 9.6 % Normal 2.0-13.0 [facility] Comment on above: Performed By: #### L AC #### [address] [address] Neutrophils/100 WBC (Bld) 66.4 % Normal 50.0-75.0 [facility] Comment on above: Performed By: #### L AC #### [address] [address] .GFRon 06-22-2025 Estimated Glomerular Filtration Rate 63 ml/min/1.73sqm Normal [facility] Comment on above: Result Comment: [...] results. Performed By: #### L AC #### [place] [address] .NEUABSon 06-22-2025 Neutrophil, Absolute 5.0 10 3/mcL Normal 2.3-8.1 [facility] Comment on above: Performed By: #### L AC #### [place] [address] APTTon 06-22-2025 aPTT Coag (Bld) [Time] 47.8 s High 25.0-35.0 [facility] Comment on above: Result Comment: For Heparin anticoagulation therapy, the recommended therapeutic range is: 54-77 seconds (APTT Correlation with Anti-Xa therapeutic range of 0.3-0.7 units/ml). PLEASE REFERENCE THE PHARMACY PROTOCOL FOR DOSING. Performed By: #### L AC #### [place] [address] aPTT Coag (Bld) [Time] 48.7 s High 25.0-35.0 [facility] Comment on above: Result Comment: For Heparin anticoagulation therapy, the recommended therapeutic range is: 54-77 seconds (APTT Correlation with Anti-Xa therapeutic range of 0.3-0.7 units/ml). PLEASE REFERENCE THE PHARMACY PROTOCOL FOR DOSING. Performed By: #### A PTT ####[place] [address] aPTT Coag (Bld) [Time] 52.7 s High 25.0-35.0 [facility] Comment on above: Result Comment: For Heparin anticoagulation therapy, the recommended therapeutic range is: 54-77 seconds (APTT Correlation with Anti-Xa therapeutic range of 0.3-0.7 units/ml). PLEASE REFERENCE THE PHARMACY PROTOCOL FOR DOSING. Performed By: #### A PTT ####[place] [address] aPTT Coag (Bld) [Time] 49.2 s High 25.0-35.0 [facility] Comment on above: Result Comment: For Heparin anticoagulation therapy, the recommended therapeutic range is: 54-77 seconds (APTT Correlation with Anti-Xa therapeutic range of 0.3-0.7 units/ml). PLEASE REFERENCE THE PHARMACY PROTOCOL FOR DOSING. Performed By: #### A PTT ####[place] [address] BMPon 06-22-2025 BUN/Creatinine Ratio 30.2 ratio High 10.0-22.0 [facility] Comment on above: Performed By: #### L AC #### [place] [id number] Calcium [Mass/Vol] 8.6 mg/dL Low 8.7-10.4 [facility] Comment on above: Performed By: #### L AC #### [address] [address] Chloride [Moles/Vol] 101 mmol/L Normal 98-110 [facility] Comment on above: Performed By: #### L AC #### [place] [id number] CO2 [Moles/Vol] 29 mmol/L Normal 22-32 [facility] Comment on above: Performed By: #### L AC #### [place] [id number] Creatinine [Mass/Vol] 0.96 mg/dL Normal 0.50-1.20 [facility] Comment on above: Result Comment: Test ing performed on Degordian analyzer using enzymatic creatinine methodology. Performed By: #### L AC #### [place] [id number] Electrolyte Balance 9.0 mEq/L Normal 4.0-15.0 [facility] Comment on above: Performed By: #### L AC #### [address] [address] Glucose [Mass/Vol] 108 mg/dL Normal 82-115 [facility] Comment on above: Performed By: #### L AC #### [place] [id number] Potassium [Moles/Vol] 3.6 mmol/L Normal 3.5-5.0 [facility] Comment on above: Performed By: #### L AC #### [place] [id number] Sodium [Moles/Vol] 139 mmol/L Normal 136-145 [facility] Comment on above: Performed By: #### L AC #### [place] [id number] Urea nitrogen [Mass/Vol] 29.0 mg/dL High 8.0-22.0 [facility] Comment on above: Performed By: #### L AC #### [place] [id number] CBCon 06-22-2025 Erythrocyte distribution width (RBC) [Ratio] 13.9 % Normal 11.5-15.5 [facility] Comment on above: Performed By: #### L AC #### [place] [id number] Hematocrit (Bld) [Volume fraction] 34.9 % Normal 34.0-46.0 [facility] Comment on above: Performed By: #### L AC #### [place] [address] Hgb 11.5 G/dL Low 12.0-16.0 [facility] Comment on above: Performed By: #### L AC #### [place] [id number] MCH (RBC) [Entitic mass] 29.2 pg Normal 27.0-33.0 [facility] Comment on above: Performed By: #### L AC #### [place] [id number] MCHC 32.9 G/dL Normal 32.0-36.0 [facility] Comment on above: Performed By: #### L AC #### [place] [id number] MCV (RBC) [Entitic vol] 88.6 fL Normal 80.0-99.0 [facility] Comment on above: Performed By: #### L AC #### [place] [address] Platelet 316 10 3/mcL Normal 150-450 [facility] Comment on above: Performed By: #### L AC #### [place] [address] Platelet mean volume (Bld) [Entitic vol] 8.0 fL Normal 6.6-10.5 [facility] Comment on above: Performed By: #### L AC #### [place] [address] RBC 3.94 10 6/mcL Low 4.10-5.30 [facility] Comment on above: Performed By: #### L AC #### [place] [address] WBC 7.5 10 3/mcL Normal 4.5-10.8 [facility] Comment on above: Performed By: #### L AC #### [place] [address] MGon 06-22-2025 Magnesium [Mass/Vol] 2.1 mg/dL Normal 1.6-2.4 [facility] Comment on above: Performed By: #### L AC #### [place] [address] .Auto Diffon 06-21-2025 Basophil, Absolute 0.1 10 3/mcL Normal 0.0-0.3 [facility] Comment on above: Performed By: #### B G #### [place] [id number] Basophils/100 WBC (Bld) 0.7 % Normal 0.0-2.5 [facility] Comment on above: Performed By: #### B G #### [place] [id number] Eosinophil, Absolute 0.1 10 3/mcL Normal 0.0-0.7 [facility] Comment on above: Performed By: #### B G #### [facility] [address] [place] [address] Eosinophils/100 WBC (Bld) 0.8 % Normal 0.0-6.0 [facility] Comment on above: Performed By: #### B G #### [facility] [address] [place] [address] Lymphocyte, Absolute 2.8 10 3/mcL Normal 0.9-4.3 [facility] Comment on above: Performed By: #### B G #### [address] [address] Lymphocytes/100 WBC (Bld) 30.7 % Normal 20.0-40.0 [facility] Comment on above: Performed By: #### B G #### [address] [address] Monocyte, Absolute 1.0 10 3/mcL Normal 0.1-1.4 [facility] Comment on above: Performed By: #### B G #### [address] [address] Monocytes/100 WBC (Bld) 11.1 % Normal 2.0-13.0 [facility] Comment on above: Performed By: #### B G #### [address] [address] Neutrophils/100 WBC (Bld) 56.7 % Normal 50.0-75.0 [facility] Comment on above: Performed By: #### B G #### [address] [address] .GFRon 06-21-2025 Estimated Glomerular Filtration Rate 72 ml/min/1.73sqm Normal [facility] Comment on above: Result Comment: [...] ADIFF, ANEU, APTT, CMP, HFP, GFR #### [address] [address] .NEUABSon 06-21-2025 Neutrophil, Absolute 5.1 10 3/mcL Normal 2.3-8.1 [facility] Comment on above: Performed By: #### B G #### [address] [address] APTTon 06-21-2025 aPTT Coag (Bld) [Time] 133.5 s Criticall y abnormal 25.0-35.0 [facility] Comment on above: Order Comment: [place] to nurse and they were not expecting results that were given from specimen.DH. Result Comment: For Heparin anticoagulation therapy, the recommended therapeutic range is: 54-77 seconds (APTT Correlation with Anti-Xa therapeutic range of 0.3-0.7 units/ml). PLEASE REFERENCE THE PHARMACY PROTOCOL FOR DOSING. Performed By: #### D RUGS #### [address] [address] aPTT Coag (Bld) [Time] 35.0 s Normal 25.0-35.0 [facility] Comment on above: Result Comment: For Heparin anticoagulation therapy, the recommended therapeutic range is: 54-77 seconds (APTT Correlation with Anti-Xa therapeutic range of 0.3-0.7 units/ml). PLEASE REFERENCE THE PHARMACY PROTOCOL FOR DOSING. Performed By: #### C BC, ADIFF, ANEU, APTT, CMP, HFP, GFR #### [address] [address] aPTT Coag (Bld) [Time] 46.2 s High 25.0-35.0 [facility] Comment on above: Result Comment: For Heparin anticoagulation therapy, the recommended therapeutic range is: 54-77 seconds (APTT Correlation with Anti-Xa therapeutic range of 0.3-0.7 units/ml). PLEASE REFERENCE THE PHARMACY PROTOCOL FOR DOSING. Performed By: #### A PTT #### [address] [address] BMPon 06-21-2025 BUN/Creatinine Ratio 27.9 ratio High 10.0-22.0 [facility] Comment on above: Performed By: #### C BC, ADIFF, ANEU, APTT, CMP, HFP, GFR #### [place] [id number] Calcium [Mass/Vol] 9.0 mg/dL Normal 8.7-10.4 [facility] Comment on above: Performed By: #### C BC, ADIFF, ANEU, APTT, CMP, HFP, GFR #### [place] [id number] Chloride [Moles/Vol] 100 mmol/L Normal 98-110 [facility] Comment on above: Performed By: #### C BC, ADIFF, ANEU, APTT, CMP, HFP, GFR #### [place] [id number] CO2 [Moles/Vol] 30 mmol/L Normal 22-32 [facility] Comment on above: Performed By: #### C BC, ADIFF, ANEU, APTT, CMP, HFP, GFR #### [place] [id number] Creatinine [Mass/Vol] 0.86 mg/dL Normal 0.50-1.20 [facility] Comment on above: Result Comment: Test ing performed on Degordian analyzer using enzymatic creatinine methodology. Performed By: #### C BC, ADIFF, ANEU, APTT, CMP, HFP, GFR #### [place] [id number] Electrolyte Balance 10.0 mEq/L Normal 4.0-15.0 [facility] Comment on above: Performed By: #### C BC, ADIFF, ANEU, APTT, CMP, HFP, GFR #### [place] [id number] Glucose [Mass/Vol] 91 mg/dL Normal 82-115 [facility] Comment on above: Performed By: #### C BC, ADIFF, ANEU, APTT, CMP, HFP, GFR #### [place] [id number] Potassium [Moles/Vol] 3.6 mmol/L Normal 3.5-5.0 [facility] Comment on above: Performed By: #### C BC, ADIFF, ANEU, APTT, CMP, HFP, GFR #### [place] [id number] Sodium [Moles/Vol] 140 mmol/L Normal 136-145 [facility] Comment on above: Performed By: #### C BC, ADIFF, ANEU, APTT, CMP, HFP, GFR #### [place] [id number] Urea nitrogen [Mass/Vol] 24.0 mg/dL High 8.0-22.0 [facility] Comment on above: Performed By: #### C BC, ADIFF, ANEU, APTT, CMP, HFP, GFR #### [place] [id number] CBCon 06-21-2025 Erythrocyte distribution width (RBC) [Ratio] 14.2 % Normal 11.5-15.5 [facility] Comment on above: Performed By: #### B G #### [place] [address] Hematocrit (Bld) [Volume fraction] 35.4 % Normal 34.0-46.0 [facility] Comment on above: Performed By: #### B G #### [place] [address] Hgb 11.8 G/dL Low 12.0-16.0 [facility] Comment on above: Performed By: #### B G #### [place] [id number] MCH (RBC) [Entitic mass] 29.0 pg Normal 27.0-33.0 [facility] Comment on above: Performed By: #### B G #### [place] [address] MCHC 33.4 G/dL Normal 32.0-36.0 [facility] Comment on above: Performed By: #### B G #### [place] [id number] MCV (RBC) [Entitic vol] 87.1 fL Normal 80.0-99.0 [facility] Comment on above: Performed By: #### B G #### [place] [address] Platelet 329 10 3/mcL Normal 150-450 [facility] Comment on above: Performed By: #### B G #### [place] [address] Platelet mean volume (Bld) [Entitic vol] 8.6 fL Normal 6.6-10.5 [facility] Comment on above: Performed By: #### B G #### [place] [address] RBC 4.07 10 6/mcL Low 4.10-5.30 [facility] Comment on above: Performed By: #### B G #### [place] [address] WBC 9.0 10 3/mcL Normal 4.5-10.8 [facility] Comment on above: Performed By: #### B G #### [place] [address] LABORATORYOrdered By: Mirtha Bennett on 06-21-2025 Glucose [Mass/Vol] 94 mg/dL Normal 82 - 115 mg/dL [facility] MGon 06-21-2025 Magnesium [Mass/Vol] 2.4 mg/dL Normal 1.6-2.4 [facility] Comment on above: Performed By: #### C BC, ADIFF, ANEU, APTT, CMP, HFP, GFR #### [place] [id number] .Auto Diffon 06-20-2025 Basophil, Absolute 0.0 10 3/mcL Normal 0.0-0.3 [facility] Comment on above: Performed By: #### L AC #### [place] [address] Basophils/100 WBC (Bld) 0.2 % Normal 0.0-2.5 [facility] Comment on above: Performed By: #### L AC #### [address] [address] Eosinophil, Absolute 0.0 10 3/mcL Normal 0.0-0.7 [facility] Comment on above: Performed By: #### L AC #### [address] [address] Eosinophils/100 WBC (Bld) 0.0 % Normal 0.0-6.0 [facility] Comment on above: Performed By: #### L AC #### [address] [address] Lymphocyte, Absolute 0.9 10 3/mcL Normal 0.9-4.3 [facility] Comment on above: Performed By: #### L AC #### [address] [address] Lymphocytes/100 WBC (Bld) 14.5 % Low 20.0-40.0 [facility] Comment on above: Performed By: #### L AC #### [address] [address] Monocyte, Absolute 0.5 10 3/mcL Normal 0.1-1.4 [facility] Comment on above: Performed By: #### L AC #### [address] [address] Monocytes/100 WBC (Bld) 7.8 % Normal 2.0-13.0 [facility] Comment on above: Performed By: #### L AC #### [address] [address] Neutrophils/100 WBC (Bld) 77.5 % High 50.0-75.0 [facility] Comment on above: Performed By: #### L AC #### [address] [address] .GFRon 06-20-2025 Estimated Glomerular Filtration Rate 53 ml/min/1.73sqm Normal [facility] Comment on above: Result Comment: [...] results. Performed By: #### D RUGS #### [address] [address] .NEUABSon 06-20-2025 Neutrophil, Absolute 5.0 10 3/mcL Normal 2.3-8.1 [facility] Comment on above: Performed By: #### L AC #### [place] [address] APTTon 06-20-2025 aPTT Coag (Bld) [Time] 49.7 s High 25.0-35.0 [facility] Comment on above: Result Comment: Resu lts verified by repeat analysis. - [id number] - 06/20/25, 6:34 PM For Heparin anticoagulation therapy, the recommended therapeutic range is: 54-77 seconds (APTT Correlation with Anti-Xa therapeutic range of 0.3-0.7 units/ml). PLEASE REFERENCE THE PHARMACY PROTOCOL FOR DOSING. Performed By: #### L AC #### [place] [address] aPTT Coag (Bld) [Time] 73.1 s High 25.0-35.0 [facility] Comment on above: Result Comment: For Heparin anticoagulation therapy, the recommended therapeutic range is: 54-77 seconds (APTT Correlation with Anti-Xa therapeutic range of 0.3-0.7 units/ml). PLEASE REFERENCE THE PHARMACY PROTOCOL FOR DOSING. Performed By: #### A PTT ####[place] [address] aPTT Coag (Bld) [Time] 67.1 s High 25.0-35.0 [facility] Comment on above: Result Comment: For Heparin anticoagulation therapy, the recommended therapeutic range is: 54-77 seconds (APTT Correlation with Anti-Xa therapeutic range of 0.3-0.7 units/ml). PLEASE REFERENCE THE PHARMACY PROTOCOL FOR DOSING. Performed By: #### A PTT ####[address] [address] BMPon 06-20-2025 BUN/Creatinine Ratio 37.8 ratio High 10.0-22.0 [facility] Comment on above: Performed By: #### L AC #### [address] [address] Calcium [Mass/Vol] 8.9 mg/dL Normal 8.7-10.4 [facility] Comment on above: Performed By: #### L AC #### [address] [address] Chloride [Moles/Vol] 98 mmol/L Normal 98-110 [facility] Comment on above: Performed By: #### L AC #### [address] [address] CO2 [Moles/Vol] 30 mmol/L Normal 22-32 [facility] Comment on above: Performed By: #### L AC #### [place] [id number] Creatinine [Mass/Vol] 1.11 mg/dL Normal 0.50-1.20 [facility] Comment on above: Result Comment: Test ing performed on Degordian analyzer using enzymatic creatinine methodology. Performed By: #### L AC #### [address] [address] Electrolyte Balance 11.0 mEq/L Normal 4.0-15.0 [facility] Comment on above: Performed By: #### L AC #### [place] [id number] Glucose [Mass/Vol] 116 mg/dL High 82-115 [facility] Comment on above: Performed By: #### L AC #### [place] [id number] Potassium [Moles/Vol] 3.5 mmol/L Normal 3.5-5.0 [facility] Comment on above: Performed By: #### L AC #### [place] [id number] Sodium [Moles/Vol] 139 mmol/L Normal 136-145 [facility] Comment on above: Performed By: #### L AC #### [place] [id number] Urea nitrogen [Mass/Vol] 42.0 mg/dL High 8.0-22.0 [facility] Comment on above: Performed By: #### L AC #### [place] [id number] CBCon 06-20-2025 Erythrocyte distribution width (RBC) [Ratio] 14.1 % Normal 11.5-15.5 [facility] Comment on above: Performed By: #### L AC #### [place] [id number] Hematocrit (Bld) [Volume fraction] 33.0 % Low 34.0-46.0 [facility] Comment on above: Performed By: #### L AC #### [place] [id number] Hgb 11.1 G/dL Low 12.0-16.0 [facility] Comment on above: Performed By: #### L AC #### [place] [id number] MCH (RBC) [Entitic mass] 29.3 pg Normal 27.0-33.0 [facility] Comment on above: Performed By: #### L AC #### [place] [id number] MCHC 33.6 G/dL Normal 32.0-36.0 [facility] Comment on above: Performed By: #### L AC #### [place] [id number] MCV (RBC) [Entitic vol] 87.2 fL Normal 80.0-99.0 [facility] Comment on above: Performed By: #### L AC #### [place] [id number] Platelet 290 10 3/mcL Normal 150-450 [facility] Comment on above: Performed By: #### L AC #### [address] [address] Platelet mean volume (Bld) [Entitic vol] 8.2 fL Normal 6.6-10.5 [facility] Comment on above: Performed By: #### L AC #### [address] [address] RBC 3.78 10 6/mcL Low 4.10-5.30 [facility] Comment on above: Performed By: #### L AC #### [address] [address] WBC 6.4 10 3/mcL Normal 4.5-10.8 [facility] Comment on above: Performed By: #### L AC #### [place] [id number] MGon 06-20-2025 Magnesium [Mass/Vol] 2.5 mg/dL High 1.6-2.4 [facility] Comment on above: Performed By: #### L AC #### [address] [address] .Auto Diffon 06-19-2025 Basophil, Absolute 0.0 10 3/mcL Normal 0.0-0.3 [facility] Comment on above: Performed By: #### C BC, ADIFF, ANEU, APTT, CMP, HFP, GFR #### [address] [address] Basophils/100 WBC (Bld) 0.1 % Normal 0.0-2.5 [facility] Comment on above: Performed By: #### C BC, ADIFF, ANEU, APTT, CMP, HFP, GFR #### [address] [address] Eosinophil, Absolute 0.0 10 3/mcL Normal 0.0-0.7 [facility] Comment on above: Performed By: #### C BC, ADIFF, ANEU, APTT, CMP, HFP, GFR #### [address] [address] Eosinophils/100 WBC (Bld) 0.0 % Normal 0.0-6.0 [facility] Comment on above: Performed By: #### C BC, ADIFF, ANEU, APTT, CMP, HFP, GFR #### [place] [id number] [place] [id number] Lymphocyte, Absolute 0.7 10 3/mcL Low 0.9-4.3 [facility] Comment on above: Performed By: #### C BC, ADIFF, ANEU, APTT, CMP, HFP, GFR #### [address] [address] Lymphocytes/100 WBC (Bld) 12.6 % Low 20.0-40.0 [facility] Comment on above: Performed By: #### C BC, ADIFF, ANEU, APTT, CMP, HFP, GFR #### [address] [address] Monocyte, Absolute 0.3 10 3/mcL Normal 0.1-1.4 [facility] Comment on above: Performed By: #### C BC, ADIFF, ANEU, APTT, CMP, HFP, GFR #### [address] [address] Monocytes/100 WBC (Bld) 5.8 % Normal 2.0-13.0 [facility] Comment on above: Performed By: #### C BC, ADIFF, ANEU, APTT, CMP, HFP, GFR #### [address] [address] Neutrophils/100 WBC (Bld) 81.5 % High 50.0-75.0 [facility] Comment on above: Performed By: #### C BC, ADIFF, ANEU, APTT, CMP, HFP, GFR #### [address] [address] .GFRon 06-19-2025 Estimated Glomerular Filtration Rate 52 ml/min/1.73sqm Normal [facility] Comment on above: Result Comment: [...] ADIFF, ANEU, APTT, CMP, HFP, GFR #### [address] [address] Estimated Glomerular Filtration Rate 71 ml/min/1.73sqm Normal [facility] Comment on above: Result Comment: [...] results. Performed By: #### L AC #### [address] [address] .NEUABSon 06-19-2025 Neutrophil, Absolute 4.7 10 3/mcL Normal 2.3-8.1 [facility] Comment on above: Performed By: #### L AC #### [address] [address] APTTon 06-19-2025 aPTT Coag (Bld) [Time] 52.6 s High 25.0-35.0 [facility] Comment on above: Result Comment: For Heparin anticoagulation therapy, the recommended therapeutic range is: 54-77 seconds (APTT Correlation with Anti-Xa therapeutic range of 0.3-0.7 units/ml). PLEASE REFERENCE THE PHARMACY PROTOCOL FOR DOSING. Performed By: #### A PTT #### [address] [address] aPTT Coag (Bld) [Time] 73.6 s High 25.0-35.0 [facility] Comment on above: Result Comment: For Heparin anticoagulation therapy, the recommended therapeutic range is: 54-77 seconds (APTT Correlation with Anti-Xa therapeutic range of 0.3-0.7 units/ml). PLEASE REFERENCE THE PHARMACY PROTOCOL FOR DOSING. Performed By: #### A PTT #### [place] [id number] aPTT Coag (Bld) [Time] 65.1 s High 25.0-35.0 [facility] Comment on above: Result Comment: For Heparin anticoagulation therapy, the recommended therapeutic range is: 54-77 seconds (APTT Correlation with Anti-Xa therapeutic range of 0.3-0.7 units/ml). PLEASE REFERENCE THE PHARMACY PROTOCOL FOR DOSING. Performed By: #### L AC #### [address] [address] BMPon 06-19-2025 BUN/Creatinine Ratio 34.5 ratio High 10.0-22.0 [facility] Comment on above: Performed By: #### C BC, ADIFF, ANEU, APTT, CMP, HFP, GFR #### [address] [address] Calcium [Mass/Vol] 8.6 mg/dL Low 8.7-10.4 [facility] Comment on above: Performed By: #### C BC, ADIFF, ANEU, APTT, CMP, HFP, GFR #### [address] [address] Chloride [Moles/Vol] 99 mmol/L Normal 98-110 [facility] Comment on above: Performed By: #### C BC, ADIFF, ANEU, APTT, CMP, HFP, GFR #### [address] [address] CO2 [Moles/Vol] 29 mmol/L Normal 22-32 [facility] Comment on above: Performed By: #### C BC, ADIFF, ANEU, APTT, CMP, HFP, GFR #### [address] [address] Creatinine [Mass/Vol] 1.13 mg/dL Normal 0.50-1.20 [facility] Comment on above: Result Comment: Test ing performed on Degordian analyzer using enzymatic creatinine methodology. Performed By: #### C BC, ADIFF, ANEU, APTT, CMP, HFP, GFR #### [address] [address] Electrolyte Balance 12.0 mEq/L Normal 4.0-15.0 [facility] Comment on above: Performed By: #### C BC, ADIFF, ANEU, APTT, CMP, HFP, GFR #### [address] [address] Glucose [Mass/Vol] 156 mg/dL High 82-115 [facility] Comment on above: Performed By: #### C BC, ADIFF, ANEU, APTT, CMP, HFP, GFR #### [place] [id number] Potassium [Moles/Vol] 3.6 mmol/L Normal 3.5-5.0 [facility] Comment on above: Performed By: #### C BC, ADIFF, ANEU, APTT, CMP, HFP, GFR #### [address] [address] Sodium [Moles/Vol] 140 mmol/L Normal 136-145 [facility] Comment on above: Performed By: #### C BC, ADIFF, ANEU, APTT, CMP, HFP, GFR #### [address] [address] Urea nitrogen [Mass/Vol] 39.0 mg/dL High 8.0-22.0 [facility] Comment on above: Performed By: #### C BC, ADIFF, ANEU, APTT, CMP, HFP, GFR #### [address] [address] CBCon 06-19-2025 Erythrocyte distribution width (RBC) [Ratio] 14.3 % Normal 11.5-15.5 [facility] Comment on above: Performed By: #### C BC, ADIFF, ANEU, APTT, CMP, HFP, GFR #### [place] [address] Hematocrit (Bld) [Volume fraction] 33.7 % Low 34.0-46.0 [facility] Comment on above: Performed By: #### C BC, ADIFF, ANEU, APTT, CMP, HFP, GFR #### [place] [address] Hgb 11.3 G/dL Low 12.0-16.0 [facility] Comment on above: Performed By: #### C BC, ADIFF, ANEU, APTT, CMP, HFP, GFR #### [place] [address] MCH (RBC) [Entitic mass] 29.4 pg Normal 27.0-33.0 [facility] Comment on above: Performed By: #### C BC, ADIFF, ANEU, APTT, CMP, HFP, GFR #### [place] [address] MCHC 33.6 G/dL Normal 32.0-36.0 [facility] Comment on above: Performed By: #### C BC, ADIFF, ANEU, APTT, CMP, HFP, GFR #### [place] [address] MCV (RBC) [Entitic vol] 87.4 fL Normal 80.0-99.0 [facility] Comment on above: Performed By: #### C BC, ADIFF, ANEU, APTT, CMP, HFP, GFR #### [place] [address] Platelet 272 10 3/mcL Normal 150-450 [facility] Comment on above: Performed By: #### C BC, ADIFF, ANEU, APTT, CMP, HFP, GFR #### [place] [address] Platelet mean volume (Bld) [Entitic vol] 7.9 fL Normal 6.6-10.5 [facility] Comment on above: Performed By: #### C BC, ADIFF, ANEU, APTT, CMP, HFP, GFR #### [place] [address] RBC 3.86 10 6/mcL Low 4.10-5.30 [facility] Comment on above: Performed By: #### C BC, ADIFF, ANEU, APTT, CMP, HFP, GFR #### [place] [address] WBC 5.8 10 3/mcL Normal 4.5-10.8 [facility] Comment on above: Performed By: #### C BC, ADIFF, ANEU, APTT, CMP, HFP, GFR #### [place] [address] CMPon 06-19-2025 Albumin Level 2.9 G/dL Low 3.2-4.8 [facility] Comment on above: Performed By: #### L AC #### [place] [address] Albumin/Globulin [Mass ratio] 0.9 {ratio} Normal 0.9-1.6 [facility] Comment on above: Performed By: #### L AC #### [place] [address] ALP [Catalytic activity/Vol] 76 U/L Normal 38-126 [facility] Comment on above: Performed By: #### L AC #### [place] [address] ALT [Catalytic activity/Vol] 57 U/L High 10-49 [facility] Comment on above: Performed By: #### L AC #### [place] [address] AST [Catalytic activity/Vol] 36 U/L High 8-34 [facility] Comment on above: Performed By: #### L AC #### [place] [address] Bili Total 0.50 mg/dL Normal 0.20-1.20 [facility] Comment on above: Result Comment: Use of this assay is not recommended for patients undergoing treatment with eltrombopag due to the potential for falsely elevated results. Performed By: #### L AC #### [place] [id number] BUN/Creatinine Ratio 36.8 ratio High 10.0-22.0 [facility] Comment on above: Performed By: #### L AC #### [address] [address] Calcium [Mass/Vol] 8.8 mg/dL Normal 8.7-10.4 [facility] Comment on above: Performed By: #### L AC #### [address] [address] Chloride [Moles/Vol] 105 mmol/L Normal 98-110 [facility] Comment on above: Performed By: #### L AC #### [address] [address] CO2 [Moles/Vol] 32 mmol/L Normal 22-32 [facility] Comment on above: Performed By: #### L AC #### [place] [id number] Creatinine [Mass/Vol] 0.87 mg/dL Normal 0.50-1.20 [facility] Comment on above: Result Comment: Test ing performed on Degordian analyzer using enzymatic creatinine methodology. Performed By: #### L AC #### [address] [address] Electrolyte Balance 12.0 mEq/L Normal 4.0-15.0 [facility] Comment on above: Performed By: #### L AC #### [place] [id number] Globulin 3.2 G/dL Normal 2.5-4.2 [facility] Comment on above: Performed By: #### L AC #### [address] [address] Glucose [Mass/Vol] 139 mg/dL High 82-115 [facility] Comment on above: Performed By: #### L AC #### [place] [id number] Potassium [Moles/Vol] 3.7 mmol/L Normal 3.5-5.0 [facility] Comment on above: Performed By: #### L AC #### [address] [address] Sodium [Moles/Vol] 149 mmol/L High 136-145 [facility] Comment on above: Performed By: #### L AC #### [place] [id number] Total Protein 6.1 G/dL Normal 5.7-8.2 [facility] Comment on above: Performed By: #### L AC #### [place] [id number] Urea nitrogen [Mass/Vol] 32.0 mg/dL High 8.0-22.0 [facility] Comment on above: Performed By: #### L AC #### [address] [address] HFPon 06-19-2025 Bili Indirect 0.4 mg/dL Normal 0.1-10.0 [facility] Comment on above: Performed By: #### L AC #### [place] [address] Bili Direct 0.1 mg/dL Normal 0.0-0.4 [facility] Comment on above: Result Comment: Use of this assay is not recommended for patients undergoing treatment with eltrombopag due to the potential for falsely elevated results. Performed By: #### L AC #### [place] [address] LABORATORYOrdered By: SYSTEM SYSTEM on 06-19-2025 Bili [...] 06/19/2025 8:06:42 AM Ordering Provider: ADRIANA Soto [facility] .Auto Diffon 06-18-2025 Basophil, Absolute 0.0 10 3/mcL Normal 0.0-0.3 [facility] Comment on above: Performed By: #### B G #### [facility] [address] [place] [address] Basophils/100 WBC (Bld) 0.1 % Normal 0.0-2.5 [facility] Comment on above: Performed By: #### B G #### [facility] [address] [place] [address] Eosinophil, Absolute 0.0 10 3/mcL Normal 0.0-0.7 [facility] Comment on above: Performed By: #### B G #### [facility] [address] [place] [address] Eosinophils/100 WBC (Bld) 0.0 % Normal 0.0-6.0 [facility] Comment on above: Performed By: #### B G #### [address] [address] Lymphocyte, Absolute 0.6 10 3/mcL Low 0.9-4.3 [facility] Comment on above: Performed By: #### B G #### [address] [address] Lymphocytes/100 WBC (Bld) 8.9 % Low 20.0-40.0 [facility] Comment on above: Performed By: #### B G #### [address] [address] Monocyte, Absolute 0.3 10 3/mcL Normal 0.1-1.4 [facility] Comment on above: Performed By: #### B G #### [address] [address] Monocytes/100 WBC (Bld) 4.4 % Normal 2.0-13.0 [facility] Comment on above: Performed By: #### B G #### [address] [address] Neutrophils/100 WBC (Bld) 86.6 % High 50.0-75.0 [facility] Comment on above: Performed By: #### B G #### [address] [address] .GFRon 06-18-2025 Estimated Glomerular Filtration Rate 59 ml/min/1.73sqm Normal [facility] Comment on above: Result Comment: [...] results. Performed By: #### B G #### [place] [address] .NEUABSon 06-18-2025 Neutrophil, Absolute 6.0 10 3/mcL Normal 2.3-8.1 [facility] Comment on above: Performed By: #### B G #### [place] [address] APTTon 06-18-2025 aPTT Coag (Bld) [Time] 68.1 s High 25.0-35.0 [facility] Comment on above: Result Comment: For Heparin anticoagulation therapy, the recommended therapeutic range is: 54-77 seconds (APTT Correlation with Anti-Xa therapeutic range of 0.3-0.7 units/ml). PLEASE REFERENCE THE PHARMACY PROTOCOL FOR DOSING. Performed By: #### A PTT ####[place] [address] aPTT Coag (Bld) [Time] 40.6 s High 25.0-35.0 [facility] Comment on above: Result Comment: For Heparin anticoagulation therapy, the recommended therapeutic range is: 54-77 seconds (APTT Correlation with Anti-Xa therapeutic range of 0.3-0.7 units/ml). PLEASE REFERENCE THE PHARMACY PROTOCOL FOR DOSING. Performed By: #### D RUGS #### [place] [address] aPTT Coag (Bld) [Time] 51.7 s High 25.0-35.0 [facility] Comment on above: Result Comment: For Heparin anticoagulation therapy, the recommended therapeutic range is: 54-77 seconds (APTT Correlation with Anti-Xa therapeutic range of 0.3-0.7 units/ml). PLEASE REFERENCE THE PHARMACY PROTOCOL FOR DOSING. Performed By: #### L AC #### [address] [address] [facility] 06-18-2025 Base excess Calc (Bld) [Moles/Vol] 2.9 mmol/L Normal [facility] Comment on above: Performed By: #### B G #### [address] [address] CO2 [Moles/Vol] 27.8 mmol/L Normal 22.0-30.0 [facility] Comment on above: Performed By: #### B G #### [place] [phone] HCO3 (Bld) [Moles/Vol] 26.6 mmol/L Normal 21.0-29.0 [facility] Comment on above: Performed By: #### B G #### [place] [id number] Oxygen (Bld) [Partial pressure] 98.2 mm[Hg] Normal 74.0-108.0 [facility] Comment on above: Performed By: #### B G #### [place] [id number] Oxygen saturation in Blood 97.1 % High 92.0-96.0 [facility] Comment on above: Performed By: #### B G #### [place] [id number] pCO2 37.4 mmHg Normal 32.0-46.0 [facility] Comment on above: Performed By: #### B G #### [place] [id number] pH (Bld) 7.470 [pH] High 7.380-7.460 [facility] Comment on above: Performed By: #### B G #### [address] [address] [facility] BUN/Creatinine Ratio 31.4 ratio High 10.0-22.0 [facility] Comment on above: Performed By: #### B G #### [place] [id number] Calcium [Mass/Vol] 8.8 mg/dL Normal 8.7-10.4 [facility] Comment on above: Performed By: #### B G #### [address] [address] Chloride [Moles/Vol] 105 mmol/L Normal 98-110 [facility] Comment on above: Performed By: #### B G #### [address] [address] CO2 [Moles/Vol] 31 mmol/L Normal 22-32 [facility] Comment on above: Performed By: #### B G #### [address] [address] Creatinine [Mass/Vol] 1.02 mg/dL Normal 0.50-1.20 [facility] Comment on above: Result Comment: Test ing performed on Degordian analyzer using enzymatic creatinine methodology. Performed By: #### B G #### [address] [address] Electrolyte Balance 7.0 mEq/L Normal 4.0-15.0 [facility] Comment on above: Performed By: #### B G #### [address] [address] Glucose [Mass/Vol] 145 mg/dL High 82-115 [facility] Comment on above: Performed By: #### B G #### [address] [address] Potassium [Moles/Vol] 3.6 mmol/L Normal 3.5-5.0 [facility] Comment on above: Performed By: #### B G #### [address] [address] Sodium [Moles/Vol] 143 mmol/L Normal 136-145 [facility] Comment on above: Performed By: #### B G #### [address] [address] Urea nitrogen [Mass/Vol] 32.0 mg/dL High 8.0-22.0 [facility] Comment on above: Performed By: #### B G #### [address] [address] CAIONon 06-18-2025 Calcium Ionized 1.09 mmol/L Low 1.12-1.32 [facility] Comment on above: Performed By: #### B G #### [address] [address] CBCon 06-18-2025 Erythrocyte distribution width (RBC) [Ratio] 14.4 % Normal 11.5-15.5 [facility] Comment on above: Performed By: #### B G #### [place] [phone] Hematocrit (Bld) [Volume fraction] 33.0 % Low 34.0-46.0 [facility] Comment on above: Performed By: #### B G #### [place] [address] Hgb 11.0 G/dL Low 12.0-16.0 [facility] Comment on above: Performed By: #### B G #### [place] [address] MCH (RBC) [Entitic mass] 29.4 pg Normal 27.0-33.0 [facility] Comment on above: Performed By: #### B G #### [place] [address] MCHC 33.4 G/dL Normal 32.0-36.0 [facility] Comment on above: Performed By: #### B G #### [place] [id number] MCV (RBC) [Entitic vol] 88.0 fL Normal 80.0-99.0 [facility] Comment on above: Performed By: #### B G #### [place] [id number] Platelet 268 10 3/mcL Normal 150-450 [facility] Comment on above: Performed By: #### B G #### [place] [id number] Platelet mean volume (Bld) [Entitic vol] 7.7 fL Normal 6.6-10.5 [facility] Comment on above: Performed By: #### B G #### [facility] [address] [place] [address] RBC 3.75 10 6/mcL Low 4.10-5.30 [facility] Comment on above: Performed By: #### B G #### [facility] [address] [place] [address] WBC 6.9 10 3/mcL Normal 4.5-10.8 [facility] Comment on above: Performed By: #### B G #### [facility] [address] [place] [address] LABORATORYOrdered By: Shelbie freitas on 06-18-2025 Blood Glucose Testing Reason Routine (06/18/25 11:16 PM) [facility] Glucose [Mass/Vol] 137 mg/dL High 82 - 115 mg/dL [facility] Blood Glucose Testing Reason Routine (06/18/25 7:15 PM) [facility] Glucose [Mass/Vol] 151 mg/dL High 82 - 115 mg/dL [facility] Blood Glucose Testing Reason Routine (06/18/25 4:00 PM) [facility] LABORATORYOrdered By: Rohit sarabia on 06-18-2025 [...] 06-18-2025 Magnesium [Mass/Vol] 2.5 mg/dL High 1.6-2.4 [facility] Comment on above: Performed By: #### B G #### [address] [address] XR CHEST 1 VIEWon 06-18-2025 XR CHEST [...] 06/18/2025 7:12:41 AM Ordering Provider: ARIAS Soto [facility] .Auto Diffon 06-17-2025 Basophil, Absolute 0.1 10 3/mcL Normal 0.0-0.3 [facility] Comment on above: Performed By: #### L AC #### [address] [address] Basophils/100 WBC (Bld) 0.9 % Normal 0.0-2.5 [facility] Comment on above: Performed By: #### L AC #### [address] [address] Eosinophil, Absolute 0.1 10 3/mcL Normal 0.0-0.7 [facility] Comment on above: Performed By: #### L AC #### [address] [address] Eosinophils/100 WBC (Bld) 0.8 % Normal 0.0-6.0 [facility] Comment on above: Performed By: #### L AC #### [facility] [address] [place] [address] Lymphocyte, Absolute 1.6 10 3/mcL Normal 0.9-4.3 [facility] Comment on above: Performed By: #### L AC #### [facility] [address] [place] [address] Lymphocytes/100 WBC (Bld) 17.8 % Low 20.0-40.0 [facility] Comment on above: Performed By: #### L AC #### [facility] [address] [place] [address] Monocyte, Absolute 0.7 10 3/mcL Normal 0.1-1.4 [facility] Comment on above: Performed By: #### L AC #### [address] [address] Monocytes/100 WBC (Bld) 8.1 % Normal 2.0-13.0 [facility] Comment on above: Performed By: #### L AC #### [address] [address] Neutrophils/100 WBC (Bld) 72.4 % Normal 50.0-75.0 [facility] Comment on above: Performed By: #### L AC #### [address] [address] .GFRon 06-17-2025 Estimated Glomerular Filtration Rate 57 ml/min/1.73sqm Normal [facility] Comment on above: Result Comment: [...] results. Performed By: #### L AC #### [address] [address] .NEUABSon 06-17-2025 Neutrophil, Absolute 6.5 10 3/mcL Normal 2.3-8.1 [facility] Comment on above: Performed By: #### L AC #### [place] [id number] APTTon 06-17-2025 aPTT Coag (Bld) [Time] 46.8 s High 25.0-35.0 [facility] Comment on above: Result Comment: For Heparin anticoagulation therapy, the recommended therapeutic range is: 54-77 seconds (APTT Correlation with Anti-Xa therapeutic range of 0.3-0.7 units/ml). PLEASE REFERENCE THE PHARMACY PROTOCOL FOR DOSING. Performed By: #### A PTT #### [place] [address] aPTT Coag (Bld) [Time] 40.2 s High 25.0-35.0 [facility] Comment on above: Result Comment: For Heparin anticoagulation therapy, the recommended therapeutic range is: 54-77 seconds (APTT Correlation with Anti-Xa therapeutic range of 0.3-0.7 units/ml). PLEASE REFERENCE THE PHARMACY PROTOCOL FOR DOSING. Performed By: #### A PTT #### [place] [address] aPTT Coag (Bld) [Time] 54.3 s High 25.0-35.0 [facility] Comment on above: Result Comment: For Heparin anticoagulation therapy, the recommended therapeutic range is: 54-77 seconds (APTT Correlation with Anti-Xa therapeutic range of 0.3-0.7 units/ml). PLEASE REFERENCE THE PHARMACY PROTOCOL FOR DOSING. Performed By: #### A PTT ####[place] [address] aPTT Coag (Bld) [Time] 71.7 s High 25.0-35.0 [facility] Comment on above: Result Comment: For Heparin anticoagulation therapy, the recommended therapeutic range is: 54-77 seconds (APTT Correlation with Anti-Xa therapeutic range of 0.3-0.7 units/ml). PLEASE REFERENCE THE PHARMACY PROTOCOL FOR DOSING. Performed By: #### A PTT ####[address] [address] BGon 06-17-2025 Base excess Calc (Bld) [Moles/Vol] 1.3 mmol/L Normal [facility] Comment on above: Performed By: #### L AC #### [place] [id number] CO2 [Moles/Vol] 26.5 mmol/L Normal 22.0-30.0 [facility] Comment on above: Performed By: #### L AC #### [address] [address] HCO3 (Bld) [Moles/Vol] 25.3 mmol/L Normal 21.0-29.0 [facility] Comment on above: Performed By: #### L AC #### [place] [phone] Oxygen (Bld) [Partial pressure] 104.6 mm[Hg] Normal 74.0-108.0 [facility] Comment on above: Performed By: #### L AC #### [place] [id number] Oxygen saturation in Blood 97.7 % High 92.0-96.0 [facility] Comment on above: Performed By: #### L AC #### [place] [id number] pCO2 38.0 mmHg Normal 32.0-46.0 [facility] Comment on above: Performed By: #### L AC #### [place] [id number] pH (Bld) 7.442 [pH] Normal 7.380-7.460 [facility] Comment on above: Performed By: #### L AC #### [address] [address] CBCon 06-17-2025 Erythrocyte distribution width (RBC) [Ratio] 14.0 % Normal 11.5-15.5 [facility] Comment on above: Performed By: #### L AC #### [place] [address] Hematocrit (Bld) [Volume fraction] 32.8 % Low 34.0-46.0 [facility] Comment on above: Performed By: #### L AC #### [place] [address] Hgb 10.9 G/dL Low 12.0-16.0 [facility] Comment on above: Performed By: #### L AC #### [place] [address] MCH (RBC) [Entitic mass] 29.4 pg Normal 27.0-33.0 [facility] Comment on above: Performed By: #### L AC #### [place] [address] MCHC 33.2 G/dL Normal 32.0-36.0 [facility] Comment on above: Performed By: #### L AC #### [place] [address] MCV (RBC) [Entitic vol] 88.5 fL Normal 80.0-99.0 [facility] Comment on above: Performed By: #### L AC #### [place] [address] Platelet 240 10 3/mcL Normal 150-450 [facility] Comment on above: Performed By: #### L AC #### [place] [address] Platelet mean volume (Bld) [Entitic vol] 7.5 fL Normal 6.6-10.5 [facility] Comment on above: Performed By: #### L AC #### [place] [address] RBC 3.71 10 6/mcL Low 4.10-5.30 [facility] Comment on above: Performed By: #### L AC #### [place] [id number] WBC 9.0 10 3/mcL Normal 4.5-10.8 [facility] Comment on above: Performed By: #### L AC #### [place] [address] [facility] 06-17-2025 Albumin Level 2.8 G/dL Low 3.2-4.8 [facility] Comment on above: Performed By: #### L AC #### [place] [id number] Albumin/Globulin [Mass ratio] 1.0 {ratio} Normal 0.9-1.6 [facility] Comment on above: Performed By: #### L AC #### [place] [address] ALP [Catalytic activity/Vol] 90 U/L Normal 38-126 [facility] Comment on above: Performed By: #### L AC #### [place] [id number] ALT [Catalytic activity/Vol] 85 U/L High 10-49 [facility] Comment on above: Performed By: #### L AC #### [place] [id number] AST [Catalytic activity/Vol] 97 U/L High 8-34 [facility] Comment on above: Performed By: #### L AC #### [place] [id number] Bili Total 0.40 mg/dL Normal 0.20-1.20 [facility] Comment on above: Result Comment: Use of this assay is not recommended for patients undergoing treatment with eltrombopag due to the potential for falsely elevated results. Performed By: #### L AC #### [place] [address] BUN/Creatinine Ratio 28.6 ratio High 10.0-22.0 [facility] Comment on above: Performed By: #### L AC #### [place] [id number] Calcium [Mass/Vol] 8.5 mg/dL Low 8.7-10.4 [facility] Comment on above: Performed By: #### L AC #### [place] [id number] Chloride [Moles/Vol] 103 mmol/L Normal 98-110 [facility] Comment on above: Performed By: #### L AC #### [address] [address] CO2 [Moles/Vol] 28 mmol/L Normal 22-32 [facility] Comment on above: Performed By: #### L AC #### [address] [address] Creatinine [Mass/Vol] 1.05 mg/dL Normal 0.50-1.20 [facility] Comment on above: Result Comment: Test ing performed on Degordian analyzer using enzymatic creatinine methodology. Performed By: #### L AC #### [address] [address] Electrolyte Balance 8.0 mEq/L Normal 4.0-15.0 [facility] Comment on above: Performed By: #### L AC #### [address] [address] Globulin 2.8 G/dL Normal 2.5-4.2 [facility] Comment on above: Performed By: #### L AC #### [address] [address] Glucose [Mass/Vol] 106 mg/dL Normal 82-115 [facility] Comment on above: Performed By: #### L AC #### [address] [address] Potassium [Moles/Vol] 4.0 mmol/L Normal 3.5-5.0 [facility] Comment on above: Performed By: #### L AC #### [address] [address] Sodium [Moles/Vol] 139 mmol/L Normal 136-145 [facility] Comment on above: Performed By: #### L AC #### [address] [address] Total Protein 5.6 G/dL Low 5.7-8.2 [facility] Comment on above: Performed By: #### L AC #### [address] [address] Urea nitrogen [Mass/Vol] 30.0 mg/dL High 8.0-22.0 [facility] Comment on above: Performed By: #### L AC #### [place] [address] LABORATORYOrdered By: SYSTEM SYSTEM on 06-17-2025 Troponin I.cardiac DL <= 0.01 ng/mL [Mass/Vol] 713 ng/L High 0 - 34 ng/L ADM SS Comment on above: Interpretive Data: High Sensitive Troponin I Reference Ranges: Female: 0-34 ng/L Male: 0-54 ng/L Testing performed on [employer] IM analyzer using direct chemiluminescent technology. LABORATORYOrdered [...] 06-17-2025 Magnesium [Mass/Vol] 2.1 mg/dL Normal 1.6-2.4 [facility] Comment on above: Performed By: #### L AC #### [place] [address] TROPHSon 06-17-2025 High Sensitivity Troponin I 713 ng/L High 0-34 [facility] Comment on above: Result Comment: High Sensitive Troponin I Reference Ranges: Female: 0-34 ng/L Male: 0-54 ng/L Testing performed on PiniOn analyzer using direct chemiluminescent technology. Performed By: #### C BC, ADIFF, ANEU, APTT, CMP, HFP, GFR #### [place] [address] XR CHEST 1 VIEWon 06-17-2025 XR CHEST [...] 06/17/2025 6:58:17 AM Ordering Provider: DEVIN Soto [facility] .Auto Diffon 06-16-2025 Basophil, Absolute 0.0 10 3/mcL Normal 0.0-0.3 [facility] Comment on above: Performed By: #### L AC #### [address] [address] Basophils/100 WBC (Bld) 0.2 % Normal 0.0-2.5 [facility] Comment on above: Performed By: #### L AC #### [address] [address] Eosinophil, Absolute 0.0 10 3/mcL Normal 0.0-0.7 [facility] Comment on above: Performed By: #### L AC #### [address] [address] Eosinophils/100 WBC (Bld) 0.0 % Normal 0.0-6.0 [facility] Comment on above: Performed By: #### L AC #### [address] [address] Lymphocyte, Absolute 0.8 10 3/mcL Low 0.9-4.3 [facility] Comment on above: Performed By: #### L AC #### [address] [address] Lymphocytes/100 WBC (Bld) 6.4 % Low 20.0-40.0 [facility] Comment on above: Performed By: #### L AC #### [address] [address] Monocyte, Absolute 0.5 10 3/mcL Normal 0.1-1.4 [facility] Comment on above: Performed By: #### L AC #### [address] [address] Monocytes/100 WBC (Bld) 4.3 % Normal 2.0-13.0 [facility] Comment on above: Performed By: #### L AC #### [address] [address] Neutrophils/100 WBC (Bld) 89.1 % High 50.0-75.0 [facility] Comment on above: Performed By: #### L AC #### [address] [address] Basophil, Absolute 0.0 10 3/mcL Normal 0.0-0.3 [facility] Comment on above: Performed By: #### L AC #### [address] [address] Basophils/100 WBC (Bld) 0.1 % Normal 0.0-2.5 [facility] Comment on above: Performed By: #### L AC #### [address] [address] Eosinophil, Absolute 0.0 10 3/mcL Normal 0.0-0.7 [facility] Comment on above: Performed By: #### L AC #### [address] [address] Eosinophils/100 WBC (Bld) 0.0 % Normal 0.0-6.0 [facility] Comment on above: Performed By: #### L AC #### [address] [address] Lymphocyte, Absolute 0.4 10 3/mcL Low 0.9-4.3 [facility] Comment on above: Performed By: #### L AC #### [address] [address] Lymphocytes/100 WBC (Bld) 1.9 % Low 20.0-40.0 [facility] Comment on above: Performed By: #### L AC #### [place] [id number] [place] [address] Monocyte, Absolute 0.5 10 3/mcL Normal 0.1-1.4 [facility] Comment on above: Performed By: #### L AC #### [address] [address] Monocytes/100 WBC (Bld) 2.4 % Normal 2.0-13.0 [facility] Comment on above: Performed By: #### L AC #### [address] [address] Neutrophils/100 WBC (Bld) 95.6 % High 50.0-75.0 [facility] Comment on above: Performed By: #### L AC #### [address] [address] .GFRon 06-16-2025 Estimated Glomerular Filtration Rate 59 ml/min/1.73sqm [facility] Comment on above: Result Comment: Stages [...] results. Performed By: #### L AC #### [address] [address] .NEUABSon 06-16-2025 Neutrophil, Absolute 10.8 10 3/mcL High 2.3-8.1 [facility] Comment on above: Performed By: #### L AC #### [address] [address] Neutrophil, Absolute 19.3 10 3/mcL High 2.3-8.1 [facility] Comment on above: Performed By: #### L AC #### [address] [address] APTTon 06-16-2025 aPTT Coag (Bld) [Time] 33.8 s Normal 25.0-35.0 [facility] Comment on above: Result Comment: For Heparin anticoagulation therapy, the recommended therapeutic range is: 54-77 seconds (APTT Correlation with Anti-Xa therapeutic range of 0.3-0.7 units/ml). PLEASE REFERENCE THE PHARMACY PROTOCOL FOR DOSING. Performed By: #### C BC, ADIFF, ANEU, APTT, CMP, HFP, GFR #### [address] [address] aPTT Coag (Bld) [Time] 29.1 s Normal 25.4 - 38.4 [facility] Comment on above: Performed By: #### 2 13762 ####[facility],[address] [place] [address] BGon 06-16-2025 Base excess Calc (Bld) [Moles/Vol] -1.1000 mmol/L Normal [facility] Comment on above: Performed By: #### D RUGS #### [address] [address] CO2 [Moles/Vol] 25.6 mmol/L Normal 22.0-30.0 [facility] Comment on above: Performed By: #### D RUGS #### [address] [address] HCO3 (Bld) [Moles/Vol] 24.3 mmol/L Normal 21.0-29.0 [facility] Comment on above: Performed By: #### D RUGS #### [address] [address] Oxygen (Bld) [Partial pressure] 97.9 mm[Hg] Normal 74.0-108.0 [facility] Comment on above: Performed By: #### D RUGS #### [place] [address] Oxygen saturation in Blood 97.1 % High 92.0-96.0 [facility] Comment on above: Performed By: #### D KAYLA #### [place] [address] pCO2 43.4 mmHg Normal 32.0-46.0 [facility] Comment on above: Performed By: #### D RUGS #### [place] [address] pH (Bld) 7.366 [pH] Low 7.380-7.460 [facility] Comment on above: Performed By: #### D KAYLA #### [place] [address] CBCon 06-16-2025 Erythrocyte distribution width (RBC) [Ratio] 13.9 % Normal 11.5-15.5 [facility] Comment on above: Performed By: #### L AC #### [place] [address] Hematocrit (Bld) [Volume fraction] 34.3 % Normal 34.0-46.0 [facility] Comment on above: Performed By: #### L AC #### [place] [address] Hgb 11.3 G/dL Low 12.0-16.0 [facility] Comment on above: Performed By: #### L AC #### [place] [address] MCH (RBC) [Entitic mass] 29.1 pg Normal 27.0-33.0 [facility] Comment on above: Performed By: #### L AC #### [place] [id number] MCHC 33.0 G/dL Normal 32.0-36.0 [facility] Comment on above: Performed By: #### L AC #### [place] [address] MCV (RBC) [Entitic vol] 88.4 fL Normal 80.0-99.0 [facility] Comment on above: Performed By: #### L AC #### [place] [id number] Platelet 263 10 3/mcL Normal 150-450 [facility] Comment on above: Performed By: #### L AC #### [place] [id number] Platelet mean volume (Bld) [Entitic vol] 7.4 fL Normal 6.6-10.5 [facility] Comment on above: Performed By: #### L AC #### [place] [address] RBC 3.88 10 6/mcL Low 4.10-5.30 [facility] Comment on above: Performed By: #### L AC #### [place] [id number] WBC 12.1 10 3/mcL High 4.5-10.8 [facility] Comment on above: Performed By: #### L AC #### [place] [address] Erythrocyte distribution width (RBC) [Ratio] 14.4 % Normal 11.5-15.5 [facility] Comment on above: Performed By: #### L AC #### [place] [address] Hematocrit (Bld) [Volume fraction] 38.4 % Normal 34.0-46.0 [facility] Comment on above: Performed By: #### L AC #### [place] [address] Hgb 12.4 G/dL Normal 12.0-16.0 [facility] Comment on above: Performed By: #### L AC #### [place] [id number] MCH (RBC) [Entitic mass] 28.7 pg Normal 27.0-33.0 [facility] Comment on above: Performed By: #### L AC #### [place] [address] MCHC 32.3 G/dL Normal 32.0-36.0 [facility] Comment on above: Performed By: #### L AC #### [place] [address] MCV (RBC) [Entitic vol] 88.8 fL Normal 80.0-99.0 [facility] Comment on above: Performed By: #### L AC #### [place] [address] Platelet 297 10 3/mcL Normal 150-450 [facility] Comment on above: Performed By: #### L AC #### [place] [address] Platelet mean volume (Bld) [Entitic vol] 7.5 fL Normal 6.6-10.5 [facility] Comment on above: Performed By: #### L AC #### [place] [address] RBC 4.32 10 6/mcL Normal 4.10-5.30 [facility] Comment on above: Performed By: #### L AC #### [place] [address] WBC 20.2 10 3/mcL High 4.5-10.8 [facility] Comment on above: Performed By: #### L AC #### [place] [address] CBC + DIFFon 06-16-2025 Baso # 0.04 x10EE3/UL Normal 0.00 - 0.10 [facility] Comment on above: Performed By: #### 2 19956 ####[facility],[address] [place] [address] Basophils/100 WBC (Bld) 0.3 % Normal 0.0 - 2.0 [facility] Comment on above: Performed By: #### 2 49616 ####[facility],[address] [place] [address] CBC + DIFF Normal [facility] Comment on above: Result Comment: CBC- COMPLETE BLOOD COUNT Performed By: #### 2 66568 ####[facility],[address] [place] [address] EO # 0.19 x10EE3/UL Normal 0.00 - 0.50 [facility] Comment on above: Performed By: #### 2 88613 ####[facility],[address] [place] [address] Eosinophils/100 WBC (Bld) 1.6 % Normal 0.0 - 7.0 [facility] Comment on above: Performed By: #### 2 39317 ####[facility],[address] [place] [address] Erythrocyte distribution width (RBC) [Ratio] 13.9 % Normal 12.0 - 15.6 [facility] Comment on above: Performed By: #### 2 44032 ####[facility],[address] [place] [address] Hematocrit (Bld) [Volume fraction] 39.0 % Normal 34.0 - 46.0 [facility] Comment on above: Performed By: #### 2 55391 ####[facility],[address] [place] [address] Hemoglobin (Bld) [Mass/Vol] 13.5 g/dL Normal 12.0 - 16.0 [facility] Comment on above: Performed By: #### 2 24030 ####[facility],[address] [place] [address] Lymph # 4.60 x10EE3/UL High 0.80 - 2.80 [facility] Comment on above: Performed By: #### 2 92238 ####[facility],[address] [place] [address] Lymphocytes/100 WBC (Bld) 38.1 % Normal 20.0 - 45.0 [facility] Comment on above: Performed By: #### 2 16568 ####[facility],[address] [place], [place] [address] MANUAL DIFF N/A Normal [facility] Comment on above: Performed By: #### 2 63640 ####[facility],[address] [place] [address] MCH (RBC) [Entitic mass] 31 pg Normal 27 - 33 [facility] Comment on above: Performed By: #### 2 39814 ####[facility],[address] [place] [address] MCHC 35 X10 3 Normal 32 - 36 [facility] Comment on above: Performed By: #### 2 40614 ####[facility],[address] [place] [address] MCV (RBC) [Entitic vol] 91 fL Normal 80 - 99 [facility] Comment on above: Performed By: #### 2 10991 ####[facility],[address] [place] [address] Cloud # 0.64 x10EE3/UL Normal 0.20 - 1.00 [facility] Comment on above: Performed By: #### 2 54197 ####[facility],[address] [place] [address] MONOS % 5.3 % Normal 0.0 - 10.0 [facility] Comment on above: Performed By: #### 2 30813 ####[facility],[address] [place], [place] [id number] Morphology Dandy (Bld) [Interp] N/A Normal [facility] Comment on above: Performed By: #### 2 58460 ####[facility],[address] [place] [address] Neut # 6.61 x10EE3/UL Normal 1.50 - 7.10 [facility] Comment on above: Performed By: #### 2 35130 ####[facility],[address] [place] [address] Neutrophils/100 WBC (Bld) 54.7 % Normal 46.0 - 76.0 [facility] Comment on above: Performed By: #### 2 39615 ####[facility],[address] [place] [address] PLATELET 365 x10EE3/UL Normal 150 - 450 [facility] Comment on above: Performed By: #### 2 41769 ####[facility],[address] [place] [address] Platelet mean volume (Bld) [Entitic vol] 7.4 fL Normal 6.6 - 10.5 [facility] Comment on above: Result Comment: AUTO MATED DIFFERENTIAL Performed By: #### 2 34695 ####[facility],[address] [place] [address] RBC 4.31 x 10EE6/UL Normal 4.10 - 5.30 [facility] Comment on above: Performed By: #### 2 54169 ####[facility],[address] [place] [address] WBC 12.1 x 10EE3/UL High 4.5 - 10.8 [facility] Comment on above: Performed By: #### 2 19257 ####[facility],[address] [place] [address] CHEST 1 VIEWon 06-16-2025 CHEST [address] [facility] CHEST 1 VIEW (PICC/ET PLACEM ENTon 06-16-2025 CHEST 1 VIEW (PICC/ET PLACEMENT Normal [facility] CMPon 06-16-2025 Albumin Level 3.5 G/dL Normal 3.2-4.8 [facility] Comment on above: Performed By: #### L AC #### [facility] [address] [place] [address] Albumin/Globulin [Mass ratio] 1.0 {ratio} Normal 0.9-1.6 [facility] Comment on above: Performed By: #### L AC #### [facility] [address] [place] [address] ALP [Catalytic activity/Vol] 135 U/L High 38-126 [facility] Comment on above: Performed By: #### L AC #### [address] [address] ALT [Catalytic activity/Vol] 133 U/L High 10-49 [facility] Comment on above: Performed By: #### L AC #### [address] [address] AST [Catalytic activity/Vol] 203 U/L High 8-34 [facility] Comment on above: Performed By: #### L AC #### [address] [address] Bili Total 0.30 mg/dL Normal 0.20-1.20 [facility] Comment on above: Result Comment: Use of this assay is not recommended for patients undergoing treatment with eltrombopag due to the potential for falsely elevated results. Performed By: #### L AC #### [address] [address] BUN/Creatinine Ratio 24.5 ratio High 10.0-22.0 [facility] Comment on above: Performed By: #### L AC #### [address] [address] Calcium [Mass/Vol] 9.2 mg/dL Normal 8.7-10.4 [facility] Comment on above: Performed By: #### L AC #### [address] [address] Chloride [Moles/Vol] 100 mmol/L Normal 98-110 [facility] Comment on above: Performed By: #### L AC #### [address] [address] CO2 [Moles/Vol] 26 mmol/L Normal 22-32 [facility] Comment on above: Performed By: #### L AC #### [address] [address] Creatinine [Mass/Vol] 1.02 mg/dL Normal 0.50-1.20 [facility] Comment on above: Result Comment: Test ing performed on [employer] analyzer using enzymatic creatinine methodology. Performed By: #### L AC #### [address] [address] Electrolyte Balance 13.0 mEq/L Normal 4.0-15.0 [facility] Comment on above: Performed By: #### L AC #### [address] [address] Globulin 3.6 G/dL Normal 2.5-4.2 [facility] Comment on above: Performed By: #### L AC #### [address] [address] Glucose [Mass/Vol] 135 mg/dL High 82-115 [facility] Comment on above: Performed By: #### L AC #### [address] [address] Potassium [Moles/Vol] 3.2 mmol/L Low 3.5-5.0 [facility] Comment on above: Performed By: #### L AC #### [address] [address] Sodium [Moles/Vol] 139 mmol/L Normal 136-145 [facility] Comment on above: Performed By: #### L AC #### [address] [address] Total Protein 7.1 G/dL Normal 5.7-8.2 [facility] Comment on above: Performed By: #### L AC #### [address] [address] Urea nitrogen [Mass/Vol] 25.0 mg/dL High 8.0-22.0 [facility] Comment on above: Performed By: #### L AC #### [address] [address] CMP with eGFRon 06-16-2025 AGE 70 years Normal [facility] Comment on above: Performed By: #### 2 00146 ####[facility],[address] [place] [address] Albumin [Mass/Vol] 3.2 g/dL Low 3.4 - 5.0 [facility] Comment on above: Performed By: #### 2 64348 ####[facility],[address] [place] [address] Albumin/Globulin [Mass ratio] 0.7 {ratio} Low 0.9 - 1.6 [facility] Comment on above: Performed By: #### 2 49059 ####[facility],[address] [place] [address] ALK PHOS 136 U/L High 46 - 116 [facility] Comment on above: Performed By: #### 2 83210 ####[facility],[address] [place] [address] ALT [Catalytic activity/Vol] 104 U/L High 16 - 63 [facility] Comment on above: Performed By: #### 2 52681 ####[facility],[address] [place] [address] Anion gap [Moles/Vol] 17 mmol/L Normal 10 - 20 [facility] Comment on above: Performed By: #### 2 15568 ####[facility],[address] [place] [address] AST [Catalytic activity/Vol] 145 U/L High 13 - 39 [facility] Comment on above: Performed By: #### 2 28732 ####[facility],[address] [place] [address] B/C RATIO 17 ratio Normal 0 - 30 [facility] Comment on above: Performed By: #### 2 25015 ####[facility],[address] [place] [address] Bilirubin [Mass/Vol] 0.7 mg/dL Normal 0.2 - 1.0 [facility] Comment on above: Performed By: #### 2 76131 ####[facility],[address] [place] [address] Calcium [Mass/Vol] 9.0 mg/dL Normal 8.5 - 10.1 [facility] Comment on above: Performed By: #### 2 17520 ####[facility],[address] [place] [address] Chloride [Moles/Vol] 95 mmol/L Low 98 - 107 [facility] Comment on above: Performed By: #### 2 12884 ####[facility],[address] [place] [address] CMP with eGFR Normal [facility] Comment on above: Result Comment: COMP REHENSIVE METABOLIC PANEL Performed By: #### 2 71681 ####[facility],[address] [place] [address] CO2 [Moles/Vol] 28.5 mmol/L Normal 21.0 - 32.0 [facility] Comment on above: Performed By: #### 2 05014 ####[facility],[address] [place] [address] Creatinine [Mass/Vol] 1.55 mg/dL High 0.55 - 1.02 [facility] Comment on above: Performed By: #### 2 36018 ####[facility],[address] [place], [place] [id number] eGFR 33 ML/MINUTE Low 60 - 999 [facility] Comment on above: Performed By: #### 2 03408 ####[facility],[address] [place], [place] [id number] eGFR(AA) 40 ML/MINUTE Low 60 - 999 [facility] Comment on above: Result Comment: ACCO RDING TO THE NATIONAL KIDNEY DISEASE EDUCATION PROGRAM(NKDE), A NORMAL eGFRIS A VALUE GREATER THAN OR EQUAL TO 60 ML/MIN/1.73 SQ METERS.CHRONIC KIDNEY DISEASE: <60mL/MIN/1.73 SQ METERSKIDNEY FAILURE: <15mL/MIN/1.73 SQ METERSTHIS TEST SHOULD ONLY BE USED FOR PATIENTS 18 YEARS OF AGE AND OLDER. Performed By: #### 2 28057 ####[facility],[address] [place] [address] Globulin (S) [Mass/Vol] 4.3 g/dL High 1.5 - 3.8 [facility] Comment on above: Performed By: #### 2 07924 ####[facility],[address] [place] [address] Glucose [Mass/Vol] 266 mg/dL High 74 - 106 [facility] Comment on above: Performed By: #### 2 48588 ####[facility],[address] [place] [address] Potassium [Moles/Vol] 4.0 mmol/L Normal 3.5 - 5.1 [facility] Comment on above: Performed By: #### 2 36512 ####[facility],[address] [place] [address] Protein [Mass/Vol] 7.5 g/dL Normal 6.4 - 8.2 [facility] Comment on above: Performed By: #### 2 58454 ####[facility],[address] [place] [address] Sodium [Moles/Vol] 136 mmol/L Normal 136 - 145 [facility] Comment on above: Performed By: #### 2 41050 ####[facility],[address] [place] [address] Urea nitrogen [Mass/Vol] 27 mg/dL High 7 - 18 [facility] Comment on above: Performed By: #### 2 59552 ####[facility],[address] [place] [address] CULTURE BLOOD [MARIA TERESA]on Microscopic examination of blood, culture CULTURE BLOOD [MARIA TERESA] _BLOOD CULTURE_ GO TO CPSI REPORTS AND ATTACHMENTS FOR SCANNED REPORT 06/24/25.56.DNP.COMP LETE Normal [facility] Comment on above: Performed By: #### 2 04995 ####[facility],[address] [place] [address]759 Microscopic examination of blood, culture CULTURE BLOOD [MARIA TERESA] _BLOOD CULTURE_ GO TO CPSI REPORTS AND ATTACHMENTS FOR SCANNED REPORT 06/24/25.55.DNP.COMP LETE Normal [facility] Comment on above: Performed By: #### 2 46074 ####[facility],[address] [place] [address] CVFLURVon 06-16-2025 FLU A PCR Negative Normal Negative [facility] Comment on above: Result Comment: Note s 1990 Performed By: #### C VFLURV ####[place] [address] FLU B PCR Negative Normal Negative [facility] Comment on above: Result Comment: Note s 1990 Performed By: #### C VFLURV ####[place] [address] RSV PCR Negative Normal Negative [facility] Comment on above: Result Comment: Note s 1990 Performed By: #### C VFLURV ####[place] [address] SARS-CoV-2 (COVID-19) RNA ALEJANDRO+probe Ql (Unsp spec) Negative Normal Negative [facility] Comment on above: Result Comment: [...] FDA Approved. Performed By: #### C VFLURV ####[place] [address] D-DIMER, QUANTITATIVEon 05-24 D-DIMER QUANT 5358 ng/ml High 0 - 230 [facility] Comment on above: Performed By: #### 2 38267 ####[facility],[address] [place] [address] 8[address]00 D-DIMER, QUANTITATIVE Normal [facility] Comment on above: Result Comment: SILVANO T D-DIMER Performed By: #### 2 17362 ####[facility],[address] [place] [address]4411 DRUGSon 06-16-2025 Acetaminophen [Mass/Vol] ug/mL Low 10.0-20.0 [facility] Comment on above: Performed By: #### Amina RUGS #### [place] [address] Ethanol Level <10.0 Normal [facility] Comment on above: Performed By: #### Amina RUGS #### [place] [id number] Salicylate Lvl (ds) <3.0 Low 10.0-25.0 [facility] Comment on above: Performed By: #### Amina RUGS #### [place] [address] Serum Drugs screened: See Below Normal [facility] Comment on above: Result Comment: This drug screen is a presumptive screening only. No confirmation will be performed unless requested. Drugs included in the serum drug screen are: Threshold Ethanol 10.0 mg/dL Salicylate 2.0 mg/dl Acetaminophen 2.0 mcg/mL Testing has been performed FOR MEDICAL PURPOSES ONLY. Performed By: #### Amina RUGS #### [place] [address] DRUGUon 06-16-2025 Benzodiazepine (u) Positive Abnormal Negative [facility] Comment on above: Performed By: #### L AC #### [place] [id number] Cannabinoid (u) Positive Abnormal Negative [facility] Comment on above: Performed By: #### L AC #### [place] [address] U pH Drug Scrn 6.0 Normal 5.0-8.0 [facility] Comment on above: Performed By: #### L AC #### [place] [id number] Amphetamine (u) Negative Normal Negative [facility] Comment on above: Performed By: #### L AC #### [address] [address] Barbiturate (u) Negative Normal Negative [facility] Comment on above: Performed By: #### L AC #### [place] [address] Cocaine Ql (U) Negative Normal Negative [facility] Comment on above: Performed By: #### L AC #### [place] [id number] Fentanyl (u) Negative Normal Negative [facility] Comment on above: Result Comment: Test ing has been performed FOR MEDICAL PURPOSES ONLY. Performed By: #### L AC #### [place] [address] Methadone Ql (U) Negative Normal Negative [facility] Comment on above: Performed By: #### L AC #### [place] [id number] Opiate (u) Negative Normal Negative [facility] Comment on above: Performed By: #### L AC #### [place] [id number] Oxycodone (u) Negative Normal Negative [facility] Comment on above: Result Comment: Test ing has been performed FOR MEDICAL PURPOSES ONLY. Performed By: #### L AC #### [place] [id number] PCP (u) Negative Normal Negative [facility] Comment on above: Performed By: #### L AC #### [place] [id number] Propoxyphene (u) Negative Normal Negative [facility] Comment on above: Performed By: #### L AC #### [place] [id number] Urine Drugs screened: See Below Normal [facility] Comment on above: Result Comment: [...] PURPOSES ONLY. Performed By: #### L #### [place] [address] ED MED ADMINISTRATION DETAIL on 06-16-2025 ED MED ADMINISTRATION DETAIL Normal [facility] ED NURSES CLINICAL NOTEon ED NURSES CLINICAL NOTE Normal [facility] ED ORDER SHEET (CPOE ONLY)on 06-16-2025 ED ORDER SHEET (CPOE ONLY) Normal [facility] ED PHYSICIAN CLINICAL REPORT on 06-16-2025 ED PHYSICIAN CLINICAL REPORT Normal [facility] ED SUPER BILLon 06-16-2025 ED SUPER BILL Normal [facility] ED VISIT SUMMARYon ED VISIT SUMMARY Normal [facility] ED VITALS FLOW SHEETon 06-16 ED VITALS FLOW SHEET Normal [facility] LABORATORYOrdered By: SYSTEM SYSTEM on 06-16-2025 [...] Comment on above: Interpretive Data: T jt Citizen Of [place] [employer] (CHEST, 1992, 102:312S-25S) [...] mg/dL Normal 2.4 - 5 .1 mg/dL [facility] LABORATORYOrdered By: Thompson Garcia on 06-16-2025 Acetaminophen [Mass/Vol] mcg/mL Low 10.0 - 20.0 mcg/mL ADM Ethanol [Mass/Vol] mg/dL Invalid Interpretation Code ADM Salicylates [Mass/Vol] mg/dL Low 10.0 - 25.0 mg/dL [facility] Serum Drugs screened: See Below 18 (06/16/25 [...] Lactic Acid Lvl 2.0 mmol/L Normal 0.5-2.2 [facility] Comment on above: Order Comment: Order ed secondary to Lactic Acid result greater than or equal to 2.0 Performed By: #### L AC #### [address] [address] Lactic Acid Lvl 2.1 mmol/L Normal 0.5-2.2 [facility] Comment on above: Performed By: #### C BC, ADIFF, ANEU, APTT, CMP, HFP, GFR #### [address] [address] Lactic Acid Lvl 1.5 mmol/L Normal 0.5-2.2 [facility] Comment on above: Performed By: #### L AC #### [address] [address] Lactic Acid Lvl 1.7 mmol/L Normal 0.5-2.2 [facility] Comment on above: Performed By: #### L AC #### [place] [id number] LACTATEon 06-16-2025 Lactate [Moles/Vol] 3.9 mmol/L High 0.4 - 2.0 [facility] Comment on above: Result Comment: LACT ATE 3 HR NOTIFIED TO: _DANIELITO_RN 06/16/25.0422.ALA. . . LACTATE 3 HR NOTIFIED BY: _AA 06/16/25.0422.ALA. . . Performed By: #### 2 72184 ####[facility],[address] [place] [address]9721 MGon 06-16-2025 Magnesium [Mass/Vol] 2.0 mg/dL Normal 1.6-2.4 [facility] Comment on above: Performed By: #### L AC #### [place] [address] MYCOon 06-16-2025 Mycoplasma IgG Negative [facility] Comment on above: Result Comment: INTE RPRETATION OF MYCOPLASMA IgG BY EIA: Negative: No detectable M. pneumoniae IgG antibody. Positive: Mycoplasma pneumoniae IgG antibody Detected. Equivocal: Equivocal for IgG antibodies to Mycoplasma pneumoniae. Suggest repeat testing in 10-14 days. Performed By: #### L AC #### [place] [address] Mycoplasma IgM Negative [facility] Comment on above: Result Comment: INTE RPRETATION OF MYCOPLASMA IgM: Negative: IgM to M. pneumoniae Absent, or at levels below the assay limit of detection. Positive: IgM to M. pneumoniae Present. Invalid: Test results are invalid due to invalid internal control. Assay was performed in duplicate. Repeat testing is suggested if clinically indicated. Performed By: #### L AC #### [place] [address] NT-proBNPon 06-16-2025 Natriuretic peptide B (Bld) [Mass/Vol] 4094 pg/mL High 0 - 125 [facility] Comment on above: Performed By: #### 2 90802 ####[facility],[address] [place] [address] No Panel InformationOrdered By: Luis Chang on 06-16-2025 Culture Respiratory with Gram Stain Normal respiratory renu present at 48 hours Sensitivity testing not indicated [facility] Comment on above: Requests for Mycopla sma, Legionella, Fungi, Mycobacteria, Chlamydia, and Viruses require ordering of those individual tests. GS Rare Gram Positive Cocci [facility] Comment on above: Requests for Mycopla sma, Legionella, Fungi, Mycobacteria, Chlamydia, and Viruses require ordering of those individual tests. No Panel Informationon 06-16 Legionella Urine Ag Presumptive negative for L. pneumophila serogroup 1 antigen in urine, suggesting no recent or current infection. Legionnaire's disease cannot be ruled out since other serogroups and species may also cause disease. [facility] Streptococcus Pneumoniae Urine Antig Presumptive negative for pneumococcal pneumonia, suggesting no current or recent pneumococcal infection. Infection due to Strep pneumoniae cannot be ruled out since the antigen present in the sample may be below the detection limit of the test. [facility] Comment on above: This test has not be en evaluated on patients taking antibiotics for greater than 24 hours or on patients who have recently completed an antibiotic regimen. The accuracy of this test has not been proven in young children. Microscopic examination of blood, culture Blood Culture: No Growth at 5 days. [facility] PHOSon 06-16-2025 Phosphate [Mass/Vol] 4.2 mg/dL Normal 2.4-5.1 [facility] Comment on above: Performed By: #### L AC #### [place] [id number] [address] [place] [address] PROon 06-16-2025 INR Coag (PPP) [Relative time] 1.2 {INR} Normal [facility] Comment on above: Result Comment: The [employer] [place] [employer] (CHEST, 1992, 102:312S-25S) recommended therapeutic range for oral anticoagulant therapy is: LOW RISK: Prophylaxis of venous thrombosis INR: 2.0-3.0 Treatment of pulmonary embolism 2.0-3.0 Prevention of systemic embolism 2.0-3.0 HIGH RISK: Mechanical prosthetic valves 2.5-3.5 Performed By: #### C BC, ADIFF, ANEU, APTT, CMP, HFP, GFR #### [facility] [address] [place] [address] PT Coag (PPP) [Time] 14.4 s Normal 9.0-14.4 [facility] Comment on above: Result Comment: Effe ctive 05/06/08, Protime results may be affected by some antibiotics (i.e. Ciprofloxacin, Azithromycin, Bactrim) which may potentiate the action of oral anticoagulants, with further increases in Protime/INR. Performed By: #### C BC, ADIFF, ANEU, APTT, CMP, HFP, GFR #### [facility] [address] [place] [address] PROTHROMBIN TIME AND INRon 0 06-16-2025 INR Coag (PPP) [Relative time] 1.1 {INR} Normal 0.8 - 1.2 [facility] Comment on above: Result Comment: T [...] MECHANICAL HEART VALVES Performed By: #### 2 30346 ####[facility],[address] [place], [place] [address] PROTHROMBIN TIME AND INR Normal [facility] Comment on above: Result Comment: PROT HROMBIN TIME AND INR Performed By: #### 2 81175 ####[facility],[address] [place], [place] [address] PT-COUMADIN 11.8 sec Normal 9.3 - 14.1 [facility] Comment on above: Performed By: #### 2 52858 ####[facility],[address] [place], [place] [address] TROPHSon 06-16-2025 High Sensitivity Troponin I 1085 ng/L High 0-34 [facility] Comment on above: Result Comment: High Sensitive Troponin I Reference Ranges: Female: 0-34 ng/L Male: 0-54 ng/L Testing performed on AtellOSIX IM analyzer using direct chemiluminescent technology. Performed By: #### L AC #### [place] [id number] High Sensitivity Troponin I 951 ng/L High [address] [facility] Comment on above: Result Comment: High Sensitive Troponin I Reference Ranges: Female: 0-34 ng/L Male: 0-54 ng/L Testing performed on A[employer]OSIX IM analyzer using direct chemiluminescent technology. Performed By: #### C BC, ADIFF, ANEU, APTT, CMP, HFP, GFR #### [place] [id number] TROPONINon 06-16-2025 HS TROPONIN 282.4 pg/mL Critically high 0.0 - 51.4 [facility] Comment on above: Result Comment: { CA LLED TO DANIELITO RN BY AA [id number]{ READ BACK BY DANIELITO RN RA [id number] Performed By: #### 2 63913 ####[place] [address] HS TROPONIN 217.4 pg/mL Critically high 0.0 - 51.4 [facility] Comment on above: Result Comment: { CA LLED TO DANIELITO RN BY AA [id number]{ READ BACK BY DANIELITO RN RA [id number] Performed By: #### 2 37984 ####[facility],[address] [place] [address] URINALYSISon 06-16-2025 Amorphous NONE Normal [facility] Comment on above: Performed By: #### 2 79980 ####[place] [address] Bacteria NONE Normal [facility] Comment on above: Performed By: #### 2 67783 ####[facility],[address] [place] [address] Bilirubin Ql (U) Negative Normal NORMAL: NEGATIVE [facility] Comment on above: Performed By: #### 2 61173 ####[facility],[address] [place] [address] Casts NONE Normal [facility] Comment on above: Performed By: #### 2 78249 ####[facility],[address] [place] [address] Clarity (U) clear Normal NORMAL: CLEAR [facility] Comment on above: Performed By: #### 2 62207 ####[facility],[address] [place] [address] Color (U) ariane Normal NORMAL: YELLOW [facility] Comment on above: Performed By: #### 2 20094 ####[facility],[address] [place] [address]37 Crystals LM Nom (Urine sed) NONE Normal [facility] Comment on above: Performed By: #### 2 42272 ####[facility],[address] [place] [address] 61769 Epi Cells NONE Normal [facility] Comment on above: Performed By: #### 2 29713 ####[facility],[address] [place] [address]125 Glucose Ql (U) 50 Abnormal NORMAL: NORMAL [facility] Comment on above: Performed By: #### 2 04651 ####[facility],[address] [place] [address]886 Hemoglobin Ql (U) 150 Abnormal NORMAL: NEGATIVE [facility] Comment on above: Performed By: #### 2 52982 ####[facility],[address] [place] [address]29 Ketone Negative Normal NORMAL: NEGATIVE [facility] Comment on above: Performed By: #### 2 97313 ####[facility],[address] [place] [address]179 Leukocytes Negative Normal NORMAL: NEGATIVE [facility] Comment on above: Performed By: #### 2 94467 ####[facility],[address] [place] [address] Mucous NONE Normal [facility] Comment on above: Performed By: #### 2 39462 ####[facility],[address] [place] [address] Nitrite Ql (U) Negative Normal NORMAL: NEGATIVE [facility] Comment on above: Performed By: #### 2 64678 ####[facility],[address] [place] [address] pH (U) 6 [pH] Normal NORMAL: 5.0-8.0 [facility] Comment on above: Performed By: #### 2 70571 ####[facility],[address] [place] [address] Protein Ql (U) 500 Abnormal NORMAL: NEGATIVE [facility] Comment on above: Performed By: #### 2 78117 ####[facility],[address] [place] [address] Rbc 0-5 Normal 0-3/hpf [facility] Comment on above: Performed By: #### 2 54147 ####[facility],[address] [place] [address] Sp [place] 1.025 Normal NORMAL: 1.010-1.030 [facility] Comment on above: Performed By: #### 2 74909 ####[facility],[address] [place] [address] Specimen Type R Normal [facility] Comment on above: Performed By: #### 2 71333 ####[facility],[address] [place] [address] Urinalysis dipstick W Reflex Microscopic panel (U) SEE BELOW Normal [facility] Comment on above: Result Comment: MICR OSCOPIC Performed By: #### 2 38097 ####[facility],[address] [place] [address] Urobilinog 1 Abnormal NORMAL: NORMAL [facility] Comment on above: Performed By: #### 2 86954 ####[facility],[address] [facility],[place] [address] Wbc NONE Normal 0-5/hpf [facility] Comment on above: Performed By: #### 2 35214 ####[facility],[address] [place] [address],[place] [address] Yeast NONE Normal [facility] Comment on above: Performed By: #### 2 16498 ####[facility],[address] [place] [address],[facility] [address] VBGon 06-16-2025 vBE -3 mmol/L Low -2 - 3 [facility] Comment on above: Performed By: #### 2 15391 ####[facility],[address] [place] [address],[facility] [address] vHCO3 28 mmol/L Normal 23 - 28 [facility] Comment on above: Performed By: #### 2 97227 ####[facility],[address] [place] [address],[facility] [address] vpCO2 109 mmHg High 41 - 51 [facility] Comment on above: Performed By: #### 2 58387 ####[facility],[address] [place] [address] vpH 7.02 Low 7.31 - 7.41 [facility] Comment on above: Performed By: #### 2 30009 ####[facility],[address] [place] [address] [place] [address] vpO2 42 mmHg Normal [facility] Comment on above: Performed By: #### 2 06811 ####[facility],[address] [place] [address],[facility] [address] vsO2 51 % Normal [facility] Comment on above: Performed By: #### 2 19123 ####[facility],[address] [place] [address] 76803 vBE 1 mmol/L Normal -2 - 3 [facility] Comment on above: Performed By: #### 2 58493 ####[facility],[address] [place] [address] vHCO3 31 mmol/L High 23 - 28 [facility] Comment on above: Performed By: #### 2 97877 ####[facility],[address] [place] [address]1050 vpCO2 101 mmHg High 41 - 51 [facility] Comment on above: Performed By: #### 2 76846 ####[facility],[address] [place] [address]130 vpH 7.08 Low 7.31 - 7.41 [facility] Comment on above: Performed By: #### 2 65498 ####[facility],[address] [place] [address]1969 vpO2 33 mmHg Normal [facility] Comment on above: Performed By: #### 2 32350 ####[facility],[address] [place] [address] 41176 vsO2 39 % Normal [facility] Comment on above: Performed By: #### 2 81790 ####[facility],[address] [place] [address]3717 XR CHEST 1 VIEWon 06-16-2025 XR CHEST [...] 10:44:49 AM Ordering Provider: VANDANA DOS SANTOS [facility] BMP with eGFRon 03-07-2025 AGE 70 years Normal [facility] Comment on above: Performed By: #### 2 73408 ####[facility],[address] [place] [address]25 Anion gap [Moles/Vol] 9 mmol/L Low 10 - 20 [facility] Comment on above: Performed By: #### 2 73450 ####[facility],[address] [place] [address] 76767 BMP with eGFR Normal [facility] Comment on above: Result Comment: BASI C METABOLIC PANEL Performed By: #### 2 59388 ####[facility],[address] [place] [address]335 Calcium [Mass/Vol] 8.7 mg/dL Normal 8.5 - 10.1 [facility] Comment on above: Performed By: #### 2 81942 ####[facility],[address] [place] [address]5921 Chloride [Moles/Vol] 103 mmol/L Normal 98 - 107 [facility] Comment on above: Performed By: #### 2 19899 ####[facility],[address] [place] [address] 90884 CO2 [Moles/Vol] 31.6 mmol/L Normal 21.0 - 32.0 [facility] Comment on above: Performed By: #### 2 32892 ####[facility],[address] [place] [address]154 Creatinine [Mass/Vol] 1.16 mg/dL High 0.55 - 1.02 [facility] Comment on above: Performed By: #### 2 86053 ####[facility],[address] [place] [address] 76260 eGFR 46 ML/MINUTE Low 60 - 999 [facility] Comment on above: Performed By: #### 2 14899 ####[facility],[address] [place] [address] 78298 eGFR(AA) 56 ML/MINUTE Low 60 - 999 [facility] Comment on above: Result Comment: ACCO RDING TO THE NATIONAL KIDNEY DISEASE EDUCATION PROGRAM(NKDE), A NORMAL eGFRIS A VALUE GREATER THAN OR EQUAL TO 60 ML/MIN/1.73 SQ METERS.CHRONIC KIDNEY DISEASE: <60mL/MIN/1.73 SQ METERSKIDNEY FAILURE: <15mL/MIN/1.73 SQ METERSTHIS TEST SHOULD ONLY BE USED FOR PATIENTS 18 YEARS OF AGE AND OLDER. Performed By: #### 2 23025 ####[facility],[address] [place] [address]5985 Glucose [Mass/Vol] 96 mg/dL Normal 74 - 106 [facility] Comment on above: Performed By: #### 2 86226 ####[facility],[address] [place] [address]8627 Potassium [Moles/Vol] 3.4 mmol/L Low 3.5 - 5.1 [facility] Comment on above: Performed By: #### 2 16379 ####[facility],[address] [place] [address]40 Sodium [Moles/Vol] 140 mmol/L Normal 136 - 145 [facility] Comment on above: Performed By: #### 2 93179 ####[facility],[address] [place] [address]157 Urea nitrogen [Mass/Vol] 25 mg/dL High 7 - 18 [facility] Comment on above: Performed By: #### 2 03470 ####[facility],[address] [place] [address]36 CMP with eGFRon 11-13-2024 AGE 69 years Normal [facility] Comment on above: Performed By: #### 2 19731 ####[facility],[address] [place] [address] 25426 Albumin [Mass/Vol] 2.4 g/dL Low 3.4 - 5.0 [facility] Comment on above: Performed By: #### 2 47938 ####[facility],[address] [place] [address]1938 Albumin/Globulin [Mass ratio] 0.8 {ratio} Low 0.9 - 1.6 [facility] Comment on above: Performed By: #### 2 01114 ####[facility],[address] [place] [address] 57720 ALK PHOS 57 U/L Normal 46 - 116 [facility] Comment on above: Performed By: #### 2 44313 ####[facility],[address] [place] [address] 83011 ALT [Catalytic activity/Vol] 55 U/L Normal 16 - 63 [facility] Comment on above: Performed By: #### 2 62688 ####[facility],[address] [place] [address] 80961 Anion gap [Moles/Vol] 9 mmol/L Low 10 - [facility] [facility] Comment on above: Performed By: #### 2 12562 ####[facility],[address] [place] [address] AST [Catalytic activity/Vol] 37 U/L Normal 13 - 39 [facility] Comment on above: Performed By: #### 2 49758 ####[facility],[address] [place] [address] B/C RATIO 12 ratio Normal 0 - 30 [facility] Comment on above: Performed By: #### 2 26171 ####[facility],[address] [place] [address] 46894 Bilirubin [Mass/Vol] 0.3 mg/dL Normal 0.2 - 1.0 [facility] Comment on above: Performed By: #### 2 12527 ####[facility],[address] [place] [address]60 Calcium [Mass/Vol] 7.9 mg/dL Low 8.5 - 10.1 [facility] Comment on above: Performed By: #### 2 63055 ####[facility],[address] [place], [place] [id number] Chloride [Moles/Vol] 106 mmol/L Normal 98 - 107 [facility] Comment on above: Performed By: #### 2 75545 ####[facility],[address] [place], [place] [id number] CMP with eGFR Normal [facility] Comment on above: Result Comment: COMP REHENSIVE METABOLIC PANEL Performed By: #### 2 17529 ####[facility],[address] [place] [address] CO2 [Moles/Vol] 28.2 mmol/L Normal 21.0 - 32.0 [facility] Comment on above: Performed By: #### 2 96840 ####[facility],[address] [place], [place] [id number] Creatinine [Mass/Vol] 0.91 mg/dL Normal 0.55 - 1.02 [facility] Comment on above: Performed By: #### 2 24621 ####[place] [address] GFR/1.73 sq M.predicted among non-blacks MDRD (S/P/Bld) [Vol rate/Area] mL/min/{1.73_m2} Normal 60 - 999 [facility] Comment on above: Performed By: #### 2 94068 ####[facility],[address] [place] [address] Result Comment: ACCO RDING TO THE NATIONAL KIDNEY DISEASE EDUCATION PROGRAM(NKDE), A NORMAL eGFRIS A VALUE GREATER THAN OR EQUAL TO 60 ML/MIN/1.73 SQ METERS.CHRONIC KIDNEY DISEASE: <60mL/MIN/1.73 SQ METERSKIDNEY FAILURE: <15mL/MIN/1.73 SQ METERSTHIS TEST SHOULD ONLY BE USED FOR PATIENTS 18 YEARS OF AGE AND OLDER. Globulin (S) [Mass/Vol] 3.1 g/dL Normal 1.5 - 3.8 [facility] Comment on above: Performed By: #### 2 53020 ####[address] [address] Glucose [Mass/Vol] 96 mg/dL Normal 74 - 106 [facility] Comment on above: Performed By: #### 2 15461 ####[address] [address] Potassium [Moles/Vol] 3.8 mmol/L Normal 3.5 - 5.1 [facility] Comment on above: Performed By: #### 2 52072 ####[address] [address] Protein [Mass/Vol] 5.5 g/dL Low 6.4 - 8.2 [facility] Comment on above: Performed By: #### 2 86305 ####[address] [address] Sodium [Moles/Vol] 139 mmol/L Normal 136 - 145 [facility] Comment on above: Performed By: #### 2 15977 ####[address] [address] Urea nitrogen [Mass/Vol] 11 mg/dL Normal 7 - 18 [facility] Comment on above: Performed By: #### 2 86031 ####[address] [address] LIPID PROFILEon 11-13-2024 Cholesterol [Mass/Vol] 131 mg/dL Normal 0 - 240 [facility] Comment on above: Performed By: #### 2 17437 ####[address],[place] [address] Cholesterol in HDL [Mass/Vol] 50 mg/dL Normal 40 - 60 [facility] Comment on above: Performed By: #### 2 95622 ####[facility],[address] [place] [address] Cholesterol in LDL [Mass/Vol] 61 mg/dL Normal 0 - 129 [facility] Comment on above: Performed By: #### 2 71798 ####[facility],[address] [place] [address]67 Cholesterol.total/Bebe sterol in HDL [Mass ratio] 2.6 {ratio} Normal 0.0 - 5.0 [facility] Comment on above: Performed By: #### 2 25853 ####[facility],[address] [place] [address] Lipid 1996 panel Normal [facility] Comment on above: Result Comment: LIPI D PROFILE Performed By: #### 2 00472 ####[facility],[address] [place] [address] Triglyceride [Mass/Vol] 98 mg/dL Normal 0 - 150 [facility] Comment on above: Performed By: #### 2 02736 ####[facility],[address] [place] [address] .Auto Diffon 11-09-2024 Basophil, Absolute 0.1 10 3/mcL Normal 0.0-0.3 [facility] Comment on above: Performed By: #### L AC #### [facility] [address] [place] [address] Basophils/100 WBC (Bld) 1.2 % Normal 0.0-2.5 [facility] Comment on above: Performed By: #### L AC #### [facility] [address] [place] [address] Eosinophil, Absolute 0.2 10 3/mcL Normal 0.0-0.7 [facility] Comment on above: Performed By: #### L AC #### [place] [address] [place] [address] Eosinophils/100 WBC (Bld) 2.0 % Normal 0.0-6.0 [facility] Comment on above: Performed By: #### L AC #### [address] [address] Lymphocyte, Absolute 2.3 10 3/mcL Normal 0.9-4.3 [facility] Comment on above: Performed By: #### L AC #### [address] [address] Lymphocytes/100 WBC (Bld) 27.4 % Normal 20.0-40.0 [facility] Comment on above: Performed By: #### L AC #### [address] [address] Monocyte, Absolute 1.1 10 3/mcL Normal 0.1-1.4 [facility] Comment on above: Performed By: #### L AC #### [address] [address] Monocytes/100 WBC (Bld) 12.9 % Normal 2.0-13.0 [facility] Comment on above: Performed By: #### L AC #### [address] [address] Neutrophils/100 WBC (Bld) 56.5 % Normal 50.0-75.0 [facility] Comment on above: Performed By: #### L AC #### [address] [address] .GFRon 11-09-2024 GFR >60 Normal [facility] Comment on above: Result Comment: GFR [...] meters Performed By: #### L AC #### [address] [address] GFR Non- >60 Normal [facility] Comment on above: Result Comment: [...] meters Performed By: #### L AC #### [place] [address] .NEUABSon 11-09-2024 Neutrophil, Absolute 4.7 10 3/mcL Normal 2.3-8.1 [facility] Comment on above: Performed By: #### L AC #### [address] [address] BMPon 11-09-2024 BUN/Creatinine Ratio 29.6 ratio High 10.0-22.0 [facility] Comment on above: Performed By: #### L AC #### [address] [address] Calcium [Mass/Vol] 8.5 mg/dL Low 8.7-10.4 [facility] Comment on above: Performed By: #### L AC #### [address] [address] Chloride [Moles/Vol] 104 mmol/L Normal 98-110 [facility] Comment on above: Performed By: #### L AC #### [address] [address] CO2 [Moles/Vol] 26 mmol/L Normal 22-32 [facility] Comment on above: Performed By: #### L AC #### [place] [id number] Creatinine [Mass/Vol] 0.81 mg/dL Normal 0.50-1.20 [facility] Comment on above: Result Comment: Test ing performed on Degordian analyzer using enzymatic creatinine methodology. Performed By: #### L AC #### [place] [id number] Electrolyte Balance 7.0 mEq/L Normal 4.0-15.0 [facility] Comment on above: Performed By: #### L AC #### [place] [id number] Glucose [Mass/Vol] 106 mg/dL Normal 82-115 [facility] Comment on above: Performed By: #### L AC #### [place] [id number] Potassium [Moles/Vol] 3.4 mmol/L Low 3.5-5.0 [facility] Comment on above: Performed By: #### L AC #### [place] [id number] Sodium [Moles/Vol] 137 mmol/L Normal 136-145 [facility] Comment on above: Performed By: #### L AC #### [place] [id number] Urea nitrogen [Mass/Vol] 24.0 mg/dL High 8.0-22.0 [facility] Comment on above: Performed By: #### L AC #### [address] [address] CBCon 11-09-2024 Erythrocyte distribution width (RBC) [Ratio] 14.5 % Normal 11.5-15.5 [facility] Comment on above: Performed By: #### L AC #### [place] [id number] Hematocrit (Bld) [Volume fraction] 35.6 % Normal 34.0-46.0 [facility] Comment on above: Performed By: #### L AC #### [address] [address] Hgb 11.9 G/dL Low 12.0-16.0 [facility] Comment on above: Performed By: #### L AC #### [place] [address] MCH (RBC) [Entitic mass] 30.2 pg Normal 27.0-33.0 [facility] Comment on above: Performed By: #### L AC #### [place] [address] MCHC 33.5 G/dL Normal 32.0-36.0 [facility] Comment on above: Performed By: #### L AC #### [place] [address] MCV (RBC) [Entitic vol] 90.2 fL Normal 80.0-99.0 [facility] Comment on above: Performed By: #### L AC #### [place] [address] Platelet 402 10 3/mcL Normal 150-450 [facility] Comment on above: Performed By: #### L AC #### [place] [address] Platelet mean volume (Bld) [Entitic vol] 7.4 fL Normal 6.6-10.5 [facility] Comment on above: Performed By: #### L AC #### [place] [address] RBC 3.95 10 6/mcL Low 4.10-5.30 [facility] Comment on above: Performed By: #### L AC #### [place] [address] WBC 8.4 10 3/mcL Normal 4.5-10.8 [facility] Comment on above: Performed By: #### L AC #### [place] [address] LABORATORYOrdered By: SYSTEM SYSTEM on 11-09-2024 Basophils [...] above: Interpretive Data: T esting performed on Degordian analyzer using enzymatic creatinine methodology. Electrolyte Balance [...] (S/P/Bld) [Vol rate/Area] ml/min/1.73sqm Invalid Interpretation Code Verified Identity Pass Chemistry S Comment on above: Interpretive Data: [...] (S/P/Bld) [Vol rate/Area] ml/min/1.73sqm Invalid Interpretation Code Verified Identity Pass Chemistry S Comment on above: Interpretive Data: [...] 11-09-2024 Magnesium [Mass/Vol] 2.1 mg/dL Normal 1.6-2.4 [facility] Comment on above: Performed By: #### L AC #### [address] [address] .Auto Diffon 11-08-2024 Basophil, Absolute 0.1 10 3/mcL Normal 0.0-0.3 [facility] Comment on above: Performed By: #### C BC, ADIFF, ANEU, BMP, MG, GFR ####[address] [address] Basophils/100 WBC (Bld) 1.4 % Normal 0.0-2.5 [facility] Comment on above: Performed By: #### C BC, ADIFF, ANEU, BMP, MG, GFR ####[facility] [place] [address] Eosinophil, Absolute 0.2 10 3/mcL Normal 0.0-0.7 [facility] Comment on above: Performed By: #### C BC, ADIFF, ANEU, BMP, MG, GFR ####[address] [address] Eosinophils/100 WBC (Bld) 2.7 % Normal 0.0-6.0 [facility] Comment on above: Performed By: #### C BC, ADIFF, ANEU, BMP, MG, GFR ####[address] [address] Lymphocyte, Absolute 1.9 10 3/mcL Normal 0.9-4.3 [facility] Comment on above: Performed By: #### C BC, ADIFF, ANEU, BMP, MG, GFR ####[address] [address] Lymphocytes/100 WBC (Bld) 26.7 % Normal 20.0-40.0 [facility] Comment on above: Performed By: #### C BC, ADIFF, ANEU, BMP, MG, GFR ####[address] [address] Monocyte, Absolute 0.9 10 3/mcL Normal 0.1-1.4 [facility] Comment on above: Performed By: #### C BC, ADIFF, ANEU, BMP, MG, GFR ####[address] [address] Monocytes/100 WBC (Bld) 13.0 % Normal 2.0-13.0 [facility] Comment on above: Performed By: #### C BC, ADIFF, ANEU, BMP, MG, GFR ####[address] [address] Neutrophils/100 WBC (Bld) 56.2 % Normal 50.0-75.0 [facility] Comment on above: Performed By: #### C BC, ADIFF, ANEU, BMP, MG, GFR ####[address] [address] .GFRon 11-08-2024 GFR >60 Normal [facility] Comment on above: Result Comment: GFR [...] C BC, ADIFF, ANEU, BMP, MG, GFR ####[address] [address] GFR Non- >60 Normal [facility] Comment on above: Result Comment: [...] C BC, ADIFF, ANEU, BMP, MG, GFR ####[address] [address] .NEUABSon 11-08-2024 Neutrophil, Absolute 4.1 10 3/mcL Normal 2.3-8.1 [facility] Comment on above: Performed By: #### C BC, ADIFF, ANEU, BMP, MG, GFR ####[address] [address] BMPon 11-08-2024 BUN/Creatinine Ratio 28.2 ratio High 10.0-22.0 [facility] Comment on above: Performed By: #### C BC, ADIFF, ANEU, BMP, MG, GFR ####[address] [address] Calcium [Mass/Vol] 8.8 mg/dL Normal 8.7-10.4 [facility] Comment on above: Performed By: #### C BC, ADIFF, ANEU, BMP, MG, GFR ####[address] [address] Chloride [Moles/Vol] 105 mmol/L Normal 98-110 [facility] Comment on above: Performed By: #### C BC, ADIFF, ANEU, BMP, MG, GFR ####[address] [address] CO2 [Moles/Vol] 27 mmol/L Normal 22-32 [facility] Comment on above: Performed By: #### C BC, ADIFF, ANEU, BMP, MG, GFR ####[address] [address] Creatinine [Mass/Vol] 0.71 mg/dL Normal 0.50-1.20 [facility] Comment on above: Result Comment: Test ing performed on Degordian analyzer using enzymatic creatinine methodology. Performed By: #### C BC, ADIFF, ANEU, BMP, MG, GFR ####[address] [address] Electrolyte Balance 7.0 mEq/L Normal 4.0-15.0 [facility] Comment on above: Performed By: #### C BC, ADIFF, ANEU, BMP, MG, GFR ####[address] [address] Glucose [Mass/Vol] 100 mg/dL Normal 82-115 [facility] Comment on above: Performed By: #### C BC, ADIFF, ANEU, BMP, MG, GFR ####[address] [address] Potassium [Moles/Vol] 3.5 mmol/L Normal 3.5-5.0 [facility] Comment on above: Performed By: #### C BC, ADIFF, ANEU, BMP, MG, GFR ####[address] [address] Sodium [Moles/Vol] 139 mmol/L Normal 136-145 [facility] Comment on above: Performed By: #### C BC, ADIFF, ANEU, BMP, MG, GFR ####[address] [address] Urea nitrogen [Mass/Vol] 20.0 mg/dL Normal 8.0-22.0 [facility] Comment on above: Performed By: #### C BC, ADIFF, ANEU, BMP, MG, GFR ####[place] [address] CBCon 11-08-2024 Erythrocyte distribution width (RBC) [Ratio] 14.1 % Normal 11.5-15.5 [facility] Comment on above: Performed By: #### C BC, ADIFF, ANEU, BMP, MG, GFR ####[place] [address] Hematocrit (Bld) [Volume fraction] 36.1 % Normal 34.0-46.0 [facility] Comment on above: Performed By: #### C BC, ADIFF, ANEU, BMP, MG, GFR ####[place] [address] Hgb 12.1 G/dL Normal 12.0-16.0 [facility] Comment on above: Performed By: #### C BC, ADIFF, ANEU, BMP, MG, GFR ####[place] [address] MCH (RBC) [Entitic mass] 30.0 pg Normal 27.0-33.0 [facility] Comment on above: Performed By: #### C BC, ADIFF, ANEU, BMP, MG, GFR ####[place] [address] MCHC 33.5 G/dL Normal 32.0-36.0 [facility] Comment on above: Performed By: #### C BC, ADIFF, ANEU, BMP, MG, GFR ####[place] [address] MCV (RBC) [Entitic vol] 89.7 fL Normal 80.0-99.0 [facility] Comment on above: Performed By: #### C BC, ADIFF, ANEU, BMP, MG, GFR ####[place] [address] Platelet 402 10 3/mcL Normal 150-450 [facility] Comment on above: Performed By: #### C BC, ADIFF, ANEU, BMP, MG, GFR ####[place] [address] [place] [address] Platelet mean volume (Bld) [Entitic vol] 7.5 fL Normal 6.6-10.5 [facility] Comment on above: Performed By: #### C BC, ADIFF, ANEU, BMP, MG, GFR ####[place] [address] [place] [address]182 RBC 4.02 10 6/mcL Low 4.10-5.30 [facility] Comment on above: Performed By: #### C BC, ADIFF, ANEU, BMP, MG, GFR ####[place] [address] [place] [address] WBC 7.3 10 3/mcL Normal 4.5-10.8 [facility] Comment on above: Performed By: #### C BC, ADIFF, ANEU, BMP, MG, GFR ####[place] [address] [place] [address] LABORATORYOrdered By: Tricia Kinney on 11-08-2024 Glucose [Mass/Vol] 107 mg/dL Normal 82 - 115 mg/dL [facility] LABORATORYOrdered By: SYSTEM SYSTEM on 11-08-2024 [...] above: Interpretive Data: T esting performed on Degordian analyzer using enzymatic creatinine methodology. Electrolyte Balance [...] (S/P/Bld) [Vol rate/Area] ml/min/1.73sqm Invalid Interpretation Code [facility] Comment on above: Interpretive Data: GFR [...] (S/P/Bld) [Vol rate/Area] ml/min/1.73sqm Invalid Interpretation Code [facility] Comment on above: Interpretive Data: GFR [...] 11-08-2024 Magnesium [Mass/Vol] 2.0 mg/dL Normal 1.6-2.4 [facility] Comment on above: Performed By: #### C BC, ADIFF, ANEU, BMP, MG, GFR ####[address] [address] .Auto Diffon 11-07-2024 Basophil, Absolute 0.1 10 3/mcL Normal 0.0-0.3 [facility] Comment on above: Performed By: #### L AC #### [address] [address] Basophils/100 WBC (Bld) 1.0 % Normal 0.0-2.5 [facility] Comment on above: Performed By: #### L AC #### [address] [address] Eosinophil, Absolute 0.1 10 3/mcL Normal 0.0-0.7 [facility] Comment on above: Performed By: #### L AC #### [address] [address] Eosinophils/100 WBC (Bld) 0.9 % Normal 0.0-6.0 [facility] Comment on above: Performed By: #### L AC #### [address] [address] Lymphocyte, Absolute 1.3 10 3/mcL Normal 0.9-4.3 [facility] Comment on above: Performed By: #### L AC #### [address] [address] Lymphocytes/100 WBC (Bld) 14.5 % Low 20.0-40.0 [facility] Comment on above: Performed By: #### L AC #### [address] [address] Monocyte, Absolute 1.0 10 3/mcL Normal 0.1-1.4 [facility] Comment on above: Performed By: #### L AC #### [address] [address] Monocytes/100 WBC (Bld) 10.3 % Normal 2.0-13.0 [facility] Comment on above: Performed By: #### L AC #### [address] [address] Neutrophils/100 WBC (Bld) 73.3 % Normal 50.0-75.0 [facility] Comment on above: Performed By: #### L AC #### [address] [address] .GFRon 11-07-2024 GFR Non- >60 [facility] Comment on above: Result Comment: GFR [...] meters Performed By: #### L AC #### [address] [address] GFR >60 [facility] Comment on above: Result Comment: [...] meters Performed By: #### L AC #### [address] [address] .NEUABSon 11-07-2024 Neutrophil, Absolute 6.8 10 3/mcL Normal 2.3-8.1 [facility] Comment on above: Performed By: #### L AC #### [address] [address] [facility] 11-07-2024 BUN/Creatinine Ratio 38.2 ratio High 10.0-22.0 [facility] Comment on above: Performed By: #### L AC #### [address] [address] Calcium [Mass/Vol] 9.0 mg/dL Normal 8.7-10.4 [facility] Comment on above: Performed By: #### L AC #### [address] [address] Chloride [Moles/Vol] 102 mmol/L Normal 98-110 [facility] Comment on above: Performed By: #### L AC #### [address] [address] CO2 [Moles/Vol] 27 mmol/L Normal 22-32 [facility] Comment on above: Performed By: #### L AC #### [address] [address] Creatinine [Mass/Vol] 0.68 mg/dL Normal 0.50-1.20 [facility] Comment on above: Result Comment: Test ing performed on Degordian analyzer using enzymatic creatinine methodology. Performed By: #### L AC #### [address] [address] Electrolyte Balance 9.0 mEq/L Normal 4.0-15.0 [facility] Comment on above: Performed By: #### L AC #### [address] [address] Glucose [Mass/Vol] 108 mg/dL Normal 82-115 [facility] Comment on above: Performed By: #### L AC #### [address] [address] Potassium [Moles/Vol] 3.6 mmol/L Normal 3.5-5.0 [facility] Comment on above: Performed By: #### L AC #### [place] [address] Sodium [Moles/Vol] 138 mmol/L Normal 136-145 [facility] Comment on above: Performed By: #### L AC #### [place] [id number] Urea nitrogen [Mass/Vol] 26.0 mg/dL High 8.0-22.0 [facility] Comment on above: Performed By: #### L AC #### [place] [address] CBCon 11-07-2024 Erythrocyte distribution width (RBC) [Ratio] 14.2 % Normal 11.5-15.5 [facility] Comment on above: Performed By: #### L AC #### [place] [id number] Hematocrit (Bld) [Volume fraction] 33.8 % Low 34.0-46.0 [facility] Comment on above: Performed By: #### L AC #### [place] [address] Hgb 11.2 G/dL Low 12.0-16.0 [facility] Comment on above: Performed By: #### L AC #### [place] [id number] MCH (RBC) [Entitic mass] 29.6 pg Normal 27.0-33.0 [facility] Comment on above: Performed By: #### L AC #### [place] [address] MCHC 33.0 G/dL Normal 32.0-36.0 [facility] Comment on above: Performed By: #### L AC #### [place] [id number] MCV (RBC) [Entitic vol] 89.7 fL Normal 80.0-99.0 [facility] Comment on above: Performed By: #### L AC #### [place] [id number] Platelet 391 10 3/mcL Normal 150-450 [facility] Comment on above: Performed By: #### L AC #### [facility] [address] [place] [address] Platelet mean volume (Bld) [Entitic vol] 7.5 fL Normal 6.6-10.5 [facility] Comment on above: Performed By: #### L AC #### [facility] [address] [place] [address] RBC 3.77 10 6/mcL Low 4.10-5.30 [facility] Comment on above: Performed By: #### L AC #### [facility] [address] [place] [address] WBC 9.3 10 3/mcL Normal 4.5-10.8 [facility] Comment on above: Performed By: #### L AC #### [place] [address] ED MED ADMINISTRATION DETAIL on 11-07-2024 ED MED ADMINISTRATION DETAIL Normal [facility] ED NURSES CLINICAL NOTEon ED NURSES CLINICAL NOTE Normal [facility] ED ORDER SHEET (CPOE ONLY)on 11-07-2024 ED ORDER SHEET (CPOE ONLY) Normal [facility] ED PHYSICIAN CLINICAL REPORT on 11-07-2024 ED PHYSICIAN CLINICAL REPORT Normal [facility] ED PHYSICIAN DISCHARGE REPOR Ton 11-07-2024 ED PHYSICIAN DISCHARGE REPORT Normal [facility] ED SUPER BILLon 11-07-2024 ED SUPER BILL Normal [facility] ED VISIT SUMMARYon ED VISIT SUMMARY Normal [facility] ED VITALS FLOW SHEETon 11-07 ED VITALS FLOW SHEET Normal [facility] LABORATORYOrdered By: Ariane Salmon on 11-07-2024 Blood Glucose Testing Reason Routine (11/07/24 3:30 AM) [facility] Glucose [Mass/Vol] 116 mg/dL High 82 - 115 mg/dL [facility] LABORATORYOrdered By: SYSTEM SYSTEM on 11-07-2024 [...] above: Interpretive Data: T esting performed on Degordian analyzer using enzymatic creatinine methodology. Electrolyte Balance [...] 11-07-2024 Magnesium [Mass/Vol] 2.0 mg/dL Normal 1.6-2.4 [facility] Comment on above: Performed By: #### L AC #### [place] [address] XR CHEST 1 VIEWon 11-07-2024 XR CHEST [...] 11/07/2024 6:54:29 AM Ordering Provider: EMILIO REYES [facility] .Auto Diffon 11-06-2024 Basophil, Absolute 0.1 10 3/mcL Normal 0.0-0.3 [facility] Comment on above: Performed By: #### L AC #### [address] [address] Basophils/100 WBC (Bld) 1.0 % Normal 0.0-2.5 [facility] Comment on above: Performed By: #### L AC #### [address] [address] Eosinophil, Absolute 0.1 10 3/mcL Normal 0.0-0.7 [facility] Comment on above: Performed By: #### L AC #### [address] [address] Eosinophils/100 WBC (Bld) 0.8 % Normal 0.0-6.0 [facility] Comment on above: Performed By: #### L AC #### [address] [address] Lymphocyte, Absolute 1.9 10 3/mcL Normal 0.9-4.3 [facility] [facility] MA[facility] Comment on above: Performed By: #### L AC #### [address] [address] Lymphocytes/100 WBC (Bld) 20.1 % Normal 20.0-40.0 [facility] MAIN Comment on above: Performed By: #### L AC #### [address] [address] Monocyte, Absolute 0.9 10 3/mcL Normal 0.1-1.4 [facility] MAIN Comment on above: Performed By: #### L AC #### [address] [address] Monocytes/100 WBC (Bld) 9.5 % Normal 2.0-13.0 [facility] MA[facility] Comment on above: Performed By: #### L AC #### [address] [address] Neutrophils/100 WBC (Bld) 68.6 % Normal 50.0-75.0 [facility] MAIN Comment on above: Performed By: #### L AC #### [address] [address] .GFRon 11-06-2024 GFR >60 [facility] MAIN Comment on above: Result Comment: [...] meters Performed By: #### L AC #### [place] [address] GFR Non- 60 ml/min/1.73sqm [facility] MAIN Comment on above: Result Comment: GFR [...] meters Performed By: #### L AC #### [address] [address] GFR >60 [facility] MAIN Comment on above: Result Comment: [...] meters Performed By: #### L AC #### [address] [address] GFR Non- >60 Normal [facility] MAIN Comment on above: Result Comment: [...] meters Performed By: #### L AC #### [address] [address] .NEUABSon 11-06-2024 Neutrophil, Absolute 6.4 10 3/mcL Normal 2.3-8.1 [facility] Comment on above: Performed By: #### L AC #### [address] [address] BGon 11-06-2024 Base excess Calc (Bld) [Moles/Vol] 3.6 mmol/L Normal [facility] MAIN Comment on above: Performed By: #### C BC, ADIFF, ANEU, APTT, CMP, HFP, GFR #### [address] [address] CO2 [Moles/Vol] 27.9 mmol/L Normal 22.0-30.0 [facility] MAIN Comment on above: Performed By: #### C BC, ADIFF, ANEU, APTT, CMP, HFP, GFR #### [address] [address] HCO3 (Bld) [Moles/Vol] 26.8 mmol/L Normal 21.0-29.0 [facility] MAIN Comment on above: Performed By: #### C BC, ADIFF, ANEU, APTT, CMP, HFP, GFR #### [place] [id number] Oxygen (Bld) [Partial pressure] 97.0 mm[Hg] Normal 74.0-108.0 [facility] MA[facility] Comment on above: Performed By: #### C BC, ADIFF, ANEU, APTT, CMP, HFP, GFR #### [place] [address] Oxygen saturation in Blood 97.4 % High 92.0-96.0 [facility] MA[facility] Comment on above: Performed By: #### C BC, ADIFF, ANEU, APTT, CMP, HFP, GFR #### [place] [id number] pCO2 35.4 mmHg Normal 32.0-46.0 [facility] Comment on above: Performed By: #### C BC, ADIFF, ANEU, APTT, CMP, HFP, GFR #### [place] [id number] pH (Bld) 7.497 [pH] High 7.380-7.460 [facility] Comment on above: Performed By: #### C BC, ADIFF, ANEU, APTT, CMP, HFP, GFR #### [address] [address] BMPon 11-06-2024 BUN/Creatinine Ratio 31.2 ratio High 10.0-22.0 [facility] MA[facility] Comment on above: Performed By: #### L AC #### [place] [id number] Calcium [Mass/Vol] 8.5 mg/dL Low 8.7-10.4 [facility]IN Comment on above: Performed By: #### L AC #### [place] [id number] Chloride [Moles/Vol] 103 mmol/L Normal 98-110 [facility] Comment on above: Performed By: #### L AC #### [address] [address] CO2 [Moles/Vol] 32 mmol/L Normal 22-32 [facility] MA[facility] Comment on above: Performed By: #### L AC #### [address] [address] Creatinine [Mass/Vol] 0.93 mg/dL Normal 0.50-1.20 [facility] MAIN Comment on above: Result Comment: Test ing performed on Degordian analyzer using enzymatic creatinine methodology. Performed By: #### L AC #### [address] [address] Electrolyte Balance 4.0 mEq/L Normal 4.0-15.0 [facility] MAIN Comment on above: Performed By: #### L AC #### [address] [address] Glucose [Mass/Vol] 89 mg/dL Normal 82-115 [facility] MAIN Comment on above: Performed By: #### L AC #### [address] [address] Potassium [Moles/Vol] 3.0 mmol/L Low 3.5-5.0 [facility] MA[facility] Comment on above: Performed By: #### L AC #### [address] [address] Sodium [Moles/Vol] 139 mmol/L Normal 136-145 [facility] MAIN Comment on above: Performed By: #### L AC #### [address] [address] Urea nitrogen [Mass/Vol] 29.0 mg/dL High 8.0-22.0 [facility] Comment on above: Performed By: #### L AC #### [address] [address] BUN/Creatinine Ratio 35.3 ratio High 10.0-22.0 [facility] Comment on above: Performed By: #### L AC #### [address] [address] Calcium [Mass/Vol] 8.5 mg/dL Low 8.7-10.4 [facility] MAIN Comment on above: Performed By: #### L AC #### [address] [address] Chloride [Moles/Vol] 101 mmol/L Normal 98-110 [facility] Comment on above: Performed By: #### L AC #### [address] [address] CO2 [Moles/Vol] 32 mmol/L Normal 22-32 [facility] Comment on above: Performed By: #### L AC #### [address] [address] Creatinine [Mass/Vol] 0.85 mg/dL Normal 0.50-1.20 [facility] MAIN Comment on above: Result Comment: Test ing performed on Degordian analyzer using enzymatic creatinine methodology. Performed By: #### L AC #### [address] [address] Electrolyte Balance 7.0 mEq/L Normal 4.0-15.0 [facility] MAIN Comment on above: Performed By: #### L AC #### [address] [address] Glucose [Mass/Vol] 88 mg/dL Normal 82-115 [facility] MAIN Comment on above: Performed By: #### L AC #### [address] [address] Potassium [Moles/Vol] 3.0 mmol/L Low 3.5-5.0 [facility] MAIN Comment on above: Performed By: #### L AC #### [address] [address] Sodium [Moles/Vol] 140 mmol/L Normal 136-145 [facility] MAIN Comment on above: Performed By: #### L AC #### [address] [address] Urea nitrogen [Mass/Vol] 30.0 mg/dL High 8.0-22.0 [facility] Comment on above: Performed By: #### L AC #### [address] [address] CBCon 11-06-2024 Erythrocyte distribution width (RBC) [Ratio] 14.6 % Normal 11.5-15.5 [facility] MAIN Comment on above: Performed By: #### L AC #### [place] [address] Hematocrit (Bld) [Volume fraction] 30.7 % Low 34.0-46.0 [facility] MAIN Comment on above: Performed By: #### L AC #### [place] [address] Hgb 10.6 G/dL Low 12.0-16.0 [facility] Comment on above: Performed By: #### L AC #### [place] [address] MCH (RBC) [Entitic mass] 30.9 pg Normal 27.0-33.0 [facility]IN Comment on above: Performed By: #### L AC #### [place] [address] MCHC 34.4 G/dL Normal 32.0-36.0 [facility] Comment on above: Performed By: #### L AC #### [place] [address] MCV (RBC) [Entitic vol] 90.0 fL Normal 80.0-99.0 [facility] MA[facility] Comment on above: Performed By: #### L AC #### [place] [address] Platelet 360 10 3/mcL Normal 150-450 [facility] Comment on above: Performed By: #### L AC #### [place] [address] Platelet mean volume (Bld) [Entitic vol] 7.4 fL Normal 6.6-10.5 [facility] Comment on above: Performed By: #### L AC #### [place] [address] RBC 3.41 10 6/mcL Low 4.10-5.30 [facility] Comment on above: Performed By: #### L AC #### [address] [address] WBC 9.4 10 3/mcL Normal 4.5-10.8 [facility] Comment on above: Performed By: #### L AC #### [address] [address] LABORATORYOrdered By: Pamella Tao on 11-06-2024 Blood Glucose Testing Reason Routine (11/06/24 7:36 AM) [facility] Glucose [Mass/Vol] 99 mg/dL Normal 82 - 115 mg/dL [facility] LABORATORYOrdered By: Shreya moore on 11-06-2024 Blood Glucose Testing Reason Routine (11/06/24 3:27 AM) [facility] LABORATORYOrdered By: Faina Steel on 11-06-2024 [...] 11-06-2024 Magnesium [Mass/Vol] 2.2 mg/dL Normal 1.6-2.4 [facility] MA[facility] Comment on above: Performed By: #### L AC #### [address] [address] Magnesium [Mass/Vol] 2.0 mg/dL Normal 1.6-2.4 [facility] Comment on above: Performed By: #### L AC #### [address] [address] XR CHEST 1 VIEWon 11-06-2024 XR CHEST [...] 6:39:04 AM Ordering Provider: EMILIO REYES Normal [facility] .Auto Diffon 11-05-2024 Basophil, Absolute 0.1 10 3/mcL Normal 0.0-0.3 [facility] Comment on above: Performed By: #### D RUGS #### [address] [address] Basophils/100 WBC (Bld) 0.5 % Normal 0.0-2.5 [facility] Comment on above: Performed By: #### D RUGS #### [place] [id number] [place] [address] Eosinophil, Absolute 0.0 10 3/mcL Normal 0.0-0.7 [facility] MA[facility] Comment on above: Performed By: #### D RUGS #### [facility] [address] [place] [address] Eosinophils/100 WBC (Bld) 0.1 % Normal 0.0-6.0 [facility] Comment on above: Performed By: #### D RUGS #### [facility] [address] [place] [address] Lymphocyte, Absolute 1.5 10 3/mcL Normal 0.9-4.3 [facility] Comment on above: Performed By: #### D RUGS #### [facility] [address] [place] [address] Lymphocytes/100 WBC (Bld) 12.9 % Low 20.0-40.0 [facility] Comment on above: Performed By: #### D RUGS #### [address] [address] Monocyte, Absolute 1.2 10 3/mcL Normal 0.1-1.4 [facility] MA[facility] Comment on above: Performed By: #### D RUGS #### [address] [address] Monocytes/100 WBC (Bld) 10.6 % Normal 2.0-13.0 [facility] MA[facility] Comment on above: Performed By: #### D RUGS #### [address] [address] Neutrophils/100 WBC (Bld) 75.9 % High 50.0-75.0 [facility] Comment on above: Performed By: #### D RUGS #### [address] [address] .GFRon 11-05-2024 GFR >60 Normal [facility] MA[facility] Comment on above: Result Comment: GFR [...] meters Performed By: #### D RUGS #### [address] [address] GFR Non- >60 Normal [facility] Comment on above: Result Comment: [...] meters Performed By: #### Amina GARZA #### [address] [address] .NEUABSon 11-05-2024 Neutrophil, Absolute 8.7 10 3/mcL High 2.3-8.1 [facility] Comment on above: Performed By: #### Amina GARZA #### [address] [address] BGon 11-05-2024 Base excess Calc (Bld) [Moles/Vol] 4.1 mmol/L Normal [facility] Comment on above: Performed By: #### Sidney G ####[address] [address] CO2 [Moles/Vol] 30.0 mmol/L Normal 22.0-30.0 [facility] Comment on above: Performed By: #### Sidney G ####[address] [address] HCO3 (Bld) [Moles/Vol] 28.7 mmol/L Normal 21.0-29.0 [facility] Comment on above: Performed By: #### Sidney G ####[address] [address] Oxygen (Bld) [Partial pressure] 73.4 mm[Hg] Low 74.0-108.0 [facility] Comment on above: Performed By: #### Sidney G ####[place] [address] [place] [address] Oxygen saturation in Blood 94.7 % Normal 92.0-96.0 [facility] Comment on above: Performed By: #### Sidney G ####[address] [address] pCO2 42.9 mmHg Normal 32.0-46.0 [facility] Comment on above: Performed By: #### Sidney G ####[place] [address] pH (Bld) 7.443 [pH] Normal 7.380-7.460 [facility] Comment on above: Performed By: #### Sidney G ####[place] [address] CBCon 11-05-2024 Erythrocyte distribution width (RBC) [Ratio] 14.4 % Normal 11.5-15.5 [facility] Comment on above: Performed By: #### Amina RUGBre #### [place] [address] Hematocrit (Bld) [Volume fraction] 34.4 % Normal 34.0-46.0 [facility] Comment on above: Performed By: #### Amina RUGS #### [place] [address] Hgb 11.5 G/dL Low 12.0-16.0 [facility] Comment on above: Performed By: #### Amina GARZA #### [place] [address] MCH (RBC) [Entitic mass] 30.5 pg Normal 27.0-33.0 [facility] Comment on above: Performed By: #### Amina RUGS #### [place] [address] MCHC 33.5 G/dL Normal 32.0-36.0 [facility] Comment on above: Performed By: #### Amina RUGS #### [place] [address] MCV (RBC) [Entitic vol] 91.1 fL Normal 80.0-99.0 [facility] Comment on above: Performed By: #### Amina RUGS #### [place] [address] Platelet 423 10 3/mcL Normal 150-450 [facility] Comment on above: Performed By: #### Amina RUGS #### [place] [address] Platelet mean volume (Bld) [Entitic vol] 7.6 fL Normal 6.6-10.5 [facility] Comment on above: Performed By: #### Amina RUGS #### [place] [address] RBC 3.78 10 6/mcL Low 4.10-5.30 [facility] Comment on above: Performed By: #### Amina RUGS #### [place] [address] WBC 11.5 10 3/mcL High 4.5-10.8 [facility] Comment on above: Performed By: #### Amina RUGS #### [place] [address] CMPon 11-05-2024 Albumin Level 2.7 G/dL Low 3.2-4.8 [facility] Comment on above: Performed By: #### Amina RUGS #### [place] [address] Albumin/Globulin [Mass ratio] 0.8 {ratio} Low 0.9-1.6 [facility] Comment on above: Performed By: #### Amina RUGBre #### [place] [id number] ALP [Catalytic activity/Vol] 90 U/L Normal 38-126 [facility] Comment on above: Performed By: #### Amina RUGBre #### [place] [id number] ALT [Catalytic activity/Vol] 41 U/L Normal 10-49 [facility] Comment on above: Performed By: #### Amina RUGS #### [place] [id number] AST [Catalytic activity/Vol] 51 U/L High 8-34 [facility] Comment on above: Performed By: #### Amina RUGS #### [place] [address] Bili Total 0.40 mg/dL Normal 0.20-1.20 [facility] Comment on above: Result Comment: Use of this assay is not recommended for patients undergoing treatment with eltrombopag due to the potential for falsely elevated results. Performed By: #### D RUGS #### [place] [id number] BUN/Creatinine Ratio 28.7 ratio High 10.0-22.0 [facility] Comment on above: Performed By: #### D RUGS #### [place] [id number] Calcium [Mass/Vol] 8.5 mg/dL Low 8.7-10.4 [facility] Comment on above: Performed By: #### D RUGS #### [place] [id number] Chloride [Moles/Vol] 101 mmol/L Normal 98-110 [facility] Comment on above: Performed By: #### D RUGS #### [place] [id number] CO2 [Moles/Vol] 30 mmol/L Normal 22-32 [facility] Comment on above: Performed By: #### D RUGS #### [place] [id number] Creatinine [Mass/Vol] 0.87 mg/dL Normal 0.50-1.20 [facility] Comment on above: Result Comment: Test ing performed on Degordian analyzer using enzymatic creatinine methodology. Performed By: #### Amina RUGS #### [place] [id number] Electrolyte Balance 8.0 mEq/L Normal 4.0-15.0 [facility] Comment on above: Performed By: #### D RUGS #### [place] [id number] Globulin 3.3 G/dL Normal 1.5-3.8 [facility] Comment on above: Performed By: #### D RUGS #### [place] [id number] Glucose [Mass/Vol] 116 mg/dL High 82-115 [facility] Comment on above: Performed By: #### Amina RUGS #### [facility] [address] [place], [place] [address] Potassium [Moles/Vol] 4.6 mmol/L Normal 3.5-5.0 [facility] Comment on above: Performed By: #### D RUGS #### [address] [address] Sodium [Moles/Vol] 139 mmol/L Normal 136-145 [facility] Comment on above: Performed By: #### D RUGS #### [address] [address] Total Protein 6.0 G/dL Normal 5.7-8.2 [facility] Comment on above: Performed By: #### D RUGS #### [address] [address] Urea nitrogen [Mass/Vol] 25.0 mg/dL High 8.0-22.0 [facility] Comment on above: Performed By: #### D RUGS #### [address] [address] LABORATORYOrdered By: [employer] on 11-05-2024 Albumin BCP dye [Mass/Vol] [...] 11-05-2024 Magnesium [Mass/Vol] 2.0 mg/dL Normal 1.6-2.4 [facility] Comment on above: Performed By: #### D RUGS #### [place] [address] MYCOon 11-05-2024 Mycoplasma IgG Negative Normal [facility] Comment on above: Result Comment: INTE RPRETATION OF MYCOPLASMA IgG BY EIA: Negative: No detectable M. pneumoniae IgG antibody. Positive: Mycoplasma pneumoniae IgG antibody Detected. Equivocal: Equivocal for IgG antibodies to Mycoplasma pneumoniae. Suggest repeat testing in 10-14 days. Performed By: #### L AC #### [place] [address] XR CHEST 1 VIEWon 11-05-2024 XR CHEST [...] 11/05/2024 6:36:29 AM Ordering Provider: VANDANA Soto [facility] .Auto Diffon 11-04-2024 Basophil, Absolute 0.1 10 3/mcL Normal 0.0-0.3 [facility] Comment on above: Performed By: #### L AC #### [address] [address] Basophils/100 WBC (Bld) 0.5 % Normal 0.0-2.5 [facility] Comment on above: Performed By: #### L AC #### [address] [address] Eosinophil, Absolute 0.0 10 3/mcL Normal 0.0-0.7 [facility] Comment on above: Performed By: #### L AC #### [address] [address] Eosinophils/100 WBC (Bld) 0.0 % Normal 0.0-6.0 [facility] Comment on above: Performed By: #### L AC #### [address] [address] Lymphocyte, Absolute 0.5 10 3/mcL Low 0.9-4.3 [facility] Comment on above: Performed By: #### L AC #### [address] [address] Lymphocytes/100 WBC (Bld) 3.0 % Low 20.0-40.0 [facility] Comment on above: Performed By: #### L AC #### [address] [address] Monocyte, Absolute 0.6 10 3/mcL Normal 0.1-1.4 [facility] Comment on above: Performed By: #### L AC #### [address] [address] Monocytes/100 WBC (Bld) 3.2 % Normal 2.0-13.0 [facility] Comment on above: Performed By: #### L AC #### [address] [address] Neutrophils/100 WBC (Bld) 93.3 % High 50.0-75.0 [facility] Comment on above: Performed By: #### L AC #### [address] [address] .GFRon 11-04-2024 GFR >60 [facility] MAIN Comment on above: Result Comment: [...] meters Performed By: #### L AC #### [address] [address] GFR Non- >60 [facility] MAIN Comment on above: Result Comment: GFR [...] meters Performed By: #### L AC #### [address] [address] .NEUABSon 11-04-2024 Neutrophil, Absolute 16.1 10 3/mcL High 2.3-8.1 [facility] Comment on above: Performed By: #### L AC #### [address] [address] BGon 11-04-2024 Base excess Calc (Bld) [Moles/Vol] 6.2 mmol/L Normal [facility] Comment on above: Performed By: #### C BC, ADIFF, ANEU, APTT, CMP, HFP, GFR #### [place] [id number] CO2 [Moles/Vol] 33.3 mmol/L High 22.0-30.0 [facility] Comment on above: Performed By: #### C BC, ADIFF, ANEU, APTT, CMP, HFP, GFR #### [place] [address] HCO3 (Bld) [Moles/Vol] 31.8 mmol/L High 21.0-29.0 [facility] Comment on above: Performed By: #### C BC, ADIFF, ANEU, APTT, CMP, HFP, GFR #### [place] [id number] Oxygen (Bld) [Partial pressure] 105.8 mm[Hg] Normal 74.0-108.0 [facility] Comment on above: Performed By: #### C BC, ADIFF, ANEU, APTT, CMP, HFP, GFR #### [place] [id number] Oxygen saturation in Blood 98.1 % High 92.0-96.0 [facility] Comment on above: Performed By: #### C BC, ADIFF, ANEU, APTT, CMP, HFP, GFR #### [place] [id number] pCO2 49.5 mmHg High 32.0-46.0 [facility] Comment on above: Performed By: #### C BC, ADIFF, ANEU, APTT, CMP, HFP, GFR #### [place] [id number] pH (Bld) 7.425 [pH] Normal 7.380-7.460 [facility] Comment on above: Performed By: #### C BC, ADIFF, ANEU, APTT, CMP, HFP, GFR #### [place] [address] CBCon 11-04-2024 Erythrocyte distribution width (RBC) [Ratio] 14.4 % Normal 11.5-15.5 [facility] Comment on above: Performed By: #### L AC #### [place] [address] Hematocrit (Bld) [Volume fraction] 35.3 % Normal 34.0-46.0 [facility] Comment on above: Performed By: #### L AC #### [place] [address] Hgb 11.9 G/dL Low 12.0-16.0 [facility] Comment on above: Performed By: #### L AC #### [place] [address] MCH (RBC) [Entitic mass] 30.6 pg Normal 27.0-33.0 [facility] Comment on above: Performed By: #### L AC #### [place] [address] MCHC 33.7 G/dL Normal 32.0-36.0 [facility] Comment on above: Performed By: #### L AC #### [place] [address] MCV (RBC) [Entitic vol] 90.7 fL Normal 80.0-99.0 [facility] Comment on above: Performed By: #### L AC #### [place] [address] Platelet 442 10 3/mcL Normal 150-450 [facility] Comment on above: Performed By: #### L AC #### [place] [id number] Platelet mean volume (Bld) [Entitic vol] 6.9 fL Normal 6.6-10.5 [facility] Comment on above: Performed By: #### L AC #### [place] [address] RBC 3.89 10 6/mcL Low 4.10-5.30 [facility] Comment on above: Performed By: #### L AC #### [place] [address] WBC 17.2 10 3/mcL High 4.5-10.8 [facility] Comment on above: Performed By: #### L AC #### [place] [address] CBC + DIFFon 11-04-2024 Baso # 0.10 x10EE3/UL Normal 0.00 - 0.10 [facility] Comment on above: Performed By: #### 2 [id number] ####[facility],[address] [place], [place] [id number] Basophils/100 WBC (Bld) 0.7 % Normal 0.0 - 2.0 [facility] Comment on above: Performed By: #### 2 00672 ####[facility],[address] [place] [address] CBC + DIFF Normal [facility] Comment on above: Result Comment: CBC- COMPLETE BLOOD COUNT Performed By: #### 2 [id number] ####[facility],[address] [place] [address] EO # 0.12 x10EE3/UL Normal 0.00 - 0.50 [facility] Comment on above: Performed By: #### 2 93453 ####[facility],[address] [place] [address] Eosinophils/100 WBC (Bld) 0.8 % Normal 0.0 - 7.0 [facility] Comment on above: Performed By: #### 2 [address]2829 ####[place] [address] Erythrocyte distribution width (RBC) [Ratio] 14.1 % Normal 12.0 - 15.6 [facility] Comment on above: Performed By: #### 2 86916 ####[facility],[address] [place], [place] [id number] Hematocrit (Bld) [Volume fraction] 36.4 % Normal 34.0 - 46.0 [facility] Comment on above: Performed By: #### 2 75072 ####[facility],[address] [place] [address] Hemoglobin (Bld) [Mass/Vol] 11.9 g/dL Low 12.0 - 16.0 [facility] Comment on above: Performed By: #### 2 25877 ####[facility],[address] [place], [place] [id number] Lymph # 6.40 x10EE3/UL High 0.80 - 2.80 [facility] Comment on above: Performed By: #### 2 58524 ####[facility],[address] [place] [address] Lymphocytes/100 WBC (Bld) 43.9 % Normal 20.0 - 45.0 [facility] Comment on above: Performed By: #### 2 05487 ####[facility],[address] [place] [address] MANUAL DIFF N/A Normal [facility] Comment on above: Performed By: #### 2 53589 ####[facility],[address] [place] [address] MCH (RBC) [Entitic mass] 30 pg Normal 27 - 33 [facility] Comment on above: Performed By: #### [id number] ####[facility],[address] [place] [address] [id number] MCHC 33 X10 3 Normal 32 - 36 [facility] Comment on above: Performed By: #### [id number] ####[facility],[address] [place] [address] [id number] MCV (RBC) [Entitic vol] 93 fL Normal 80 - 99 [facility] Comment on above: Performed By: #### [id number] ####[facility],[address] [place] [address] [id number] Cloud # 1.36 [id number] High 0.20 - 1.00 [facility] Comment on above: Performed By: #### [id number] ####[facility],[address] [place] [address] [id number] MONOS % 9.4 % Normal 0.0 - 10.0 [facility] [facility] Comment on above: Performed By: #### 2 31430 ####[facility],[address] [place] [address] 80580 Morphology Dandy (Bld) [Interp] N/A Normal [facility] Comment on above: Performed By: #### 2 25134 ####[facility],[address] [place] [address] 07368 Neut # 6.60 x10EE3/UL Normal 1.50 - 7.10 [facility] Comment on above: Performed By: #### 2 74083 ####[facility],[address] [place] [address] 52551 Neutrophils/100 WBC (Bld) 45.3 % Low 46.0 - 76.0 [facility] Comment on above: Performed By: #### 2 15027 ####[facility],[address] [place] [address] 41875 PLATELET 608 x10EE3/UL High 150 - 450 [facility] Comment on above: Performed By: #### 2 71626 ####[facility],[address] [place] [address] 73781 Platelet mean volume (Bld) [Entitic vol] 7.8 fL Normal 6.6 - 10.5 [facility] Comment on above: Result Comment: AUTO MATED DIFFERENTIAL Performed By: #### 2 51633 ####[facility],[address] [place] [address] 47176 RBC 3.92 x 10EE6/UL Low 4.10 - 5.30 [facility] Comment on above: Performed By: #### 2 10285 ####[facility],[address] [place] [address] 71186 WBC 14.6 x 10EE3/UL High 4.5 - 10.8 [facility] Comment on above: Performed By: #### 2 60109 ####[facility],[address] [place] [address] 40989 CHEST 1 VIEWon 11-04-2024 CHEST [address] [facility] CHEST 1 VIEW (PICC/ET PLACEM ENTon 11-04-2024 CHEST 1 VIEW (PICC/ET PLACEMENT Normal [facility] CMPon 11-04-2024 Albumin Level 3.1 G/dL Low 3.2-4.8 [facility] Comment on above: Performed By: #### L AC #### [place] [address] Albumin/Globulin [Mass ratio] 0.8 {ratio} Low 0.9-1.6 [facility] Comment on above: Performed By: #### L AC #### [address] [address] ALP [Catalytic activity/Vol] 99 U/L Normal 38-126 [facility] Comment on above: Performed By: #### L AC #### [place] [address] ALT [Catalytic activity/Vol] 42 U/L Normal 10-49 [facility] Comment on above: Performed By: #### L AC #### [address] [address] AST [Catalytic activity/Vol] 52 U/L High 8-34 [facility] Comment on above: Performed By: #### L AC #### [place] [id number] Bili Total 0.40 mg/dL Normal 0.20-1.20 [facility] Comment on above: Result Comment: Use of this assay is not recommended for patients undergoing treatment with eltrombopag due to the potential for falsely elevated results. Performed By: #### L AC #### Maria Teresa[address] [address] BUN/Creatinine Ratio 23.0 ratio High 10.0-22.0 [facility] Comment on above: Performed By: #### L AC #### [address] [address] Calcium [Mass/Vol] 8.8 mg/dL Normal 8.7-10.4 [facility] Comment on above: Performed By: #### L AC #### [address] [address] Chloride [Moles/Vol] 100 mmol/L Normal 98-110 [facility] Comment on above: Performed By: #### L AC #### [address] [address] CO2 [Moles/Vol] 33 mmol/L High 22-32 [facility] Comment on above: Performed By: #### L AC #### [address] [address] Creatinine [Mass/Vol] 0.74 mg/dL Normal 0.50-1.20 [facility] Comment on above: Result Comment: Test ing performed on Degordian analyzer using enzymatic creatinine methodology. Performed By: #### L AC #### [address] [address] Electrolyte Balance 9.0 mEq/L Normal 4.0-15.0 [facility] Comment on above: Performed By: #### L AC #### [address] [address] Globulin 3.8 G/dL Normal 1.5-3.8 [facility] Comment on above: Performed By: #### L AC #### [address] [address] Glucose [Mass/Vol] 140 mg/dL High 82-115 [facility] Comment on above: Performed By: #### L AC #### [address] [address] Potassium [Moles/Vol] 3.0 mmol/L Low 3.5-5.0 [facility] Comment on above: Performed By: #### L AC #### [place] [id number] [place] [address] 09570 Sodium [Moles/Vol] 142 mmol/L Normal 136-145 [facility] Comment on above: Performed By: #### L AC #### [facility] [address] [place] [address] 44382 Total Protein 6.9 G/dL Normal 5.7-8.2 [facility] Comment on above: Performed By: #### L AC #### [address] [address] Urea nitrogen [Mass/Vol] 17.0 mg/dL Normal 8.0-22.0 [facility] Comment on above: Performed By: #### L AC #### [place] [id number] CMP with eGFRon 11-04-2024 AGE 69 years Normal [facility] Comment on above: Performed By: #### 2 64782 ####[facility],[address] [place] [address] 76229 Albumin [Mass/Vol] 3.0 g/dL Low 3.4 - 5.0 [facility] Comment on above: Performed By: #### 2 74227 ####[facility],[address] [place] [address] 41195 Albumin/Globulin [Mass ratio] 0.7 {ratio} Low 0.9 - 1.6 [facility] Comment on above: Performed By: #### 2 68216 ####[facility],[address] [place] [address] 01844 ALK PHOS 99 U/L Normal 46 - 116 [facility] Comment on above: Performed By: #### 2 71796 ####[facility],[address] [place] [address] 01121 ALT [Catalytic activity/Vol] 39 U/L Normal 16 - 63 [facility] Comment on above: Performed By: #### 2 44089 ####[facility],[address] [place] [address] 33696 Anion gap [Moles/Vol] 14 mmol/L Normal 10 - 20 [facility] Comment on above: Performed By: #### 2 43436 ####[facility],[address] [place] [address] 73309 AST [Catalytic activity/Vol] 41 U/L High 13 - 39 [facility] Comment on above: Performed By: #### 2 01421 ####[facility],[address] [place] [address] 67971 B/C RATIO 12 ratio Normal 0 - 30 [facility] Comment on above: Performed By: #### 2 17404 ####[facility],[address] [place] [address] 22456 Bilirubin [Mass/Vol] 0.5 mg/dL Normal 0.2 - 1.0 [facility] Comment on above: Performed By: #### 2 90029 ####[facility],[address] [place] [address] 28993 Calcium [Mass/Vol] 8.5 mg/dL Normal 8.5 - 10.1 [facility] Comment on above: Performed By: #### 2 32248 ####[facility],[address] [place] [address] 58877 Chloride [Moles/Vol] 100 mmol/L Normal 98 - 107 [facility] Comment on above: Performed By: #### 2 59958 ####[facility],[address] [place] [address] 59872 CMP with eGFR Normal [facility] Comment on above: Result Comment: COMP REHENSIVE METABOLIC PANEL Performed By: #### 2 45744 ####[facility],[address] [place] [address] 60807 CO2 [Moles/Vol] 28.6 mmol/L Normal 21.0 - 32.0 [facility] Comment on above: Performed By: #### 2 21721 ####[facility],[address] [place] [address] 23006 Creatinine [Mass/Vol] 1.22 mg/dL High 0.55 - 1.02 [facility] Comment on above: Performed By: #### 2 78934 ####[facility],[address] [place] [address] 27080 eGFR 44 ML/MINUTE Low 60 - 999 [facility] Comment on above: Performed By: #### 2 90185 ####[facility],[address] [place] [address] 88235 eGFR(AA) 53 ML/MINUTE Low 60 - 999 [facility] Comment on above: Result Comment: ACCO RDING TO THE NATIONAL KIDNEY DISEASE EDUCATION PROGRAM(NKDE), A NORMAL eGFRIS A VALUE GREATER THAN OR EQUAL TO 60 ML/MIN/1.73 SQ METERS.CHRONIC KIDNEY DISEASE: <60mL/MIN/1.73 SQ METERSKIDNEY FAILURE: <15mL/MIN/1.73 SQ METERSTHIS TEST SHOULD ONLY BE USED FOR PATIENTS 18 YEARS OF AGE AND OLDER. Performed By: #### 2 79020 ####[facility],[address] [place] [address] 61407 Globulin (S) [Mass/Vol] 4.1 g/dL High 1.5 - 3.8 [facility] Comment on above: Performed By: #### 2 36074 ####[facility],[address] [place] [address] 73023 Glucose [Mass/Vol] 296 mg/dL High 74 - 106 [facility] Comment on above: Performed By: #### 2 98967 ####[facility],[address] [place] [address] 53322 Potassium [Moles/Vol] 2.6 mmol/L Critically low 3.5 - 5.1 [facility] Comment on above: Result Comment: { CA LLED TO N MCKEON 07:31 MKY{ READ BACK BY SAME Performed By: #### 2 25599 ####[facility],[address] [place] [address] 04857 Protein [Mass/Vol] 7.1 g/dL Normal 6.4 - 8.2 [facility] Comment on above: Performed By: #### 2 04408 ####[facility],[address] [place] [address] Sodium [Moles/Vol] 140 mmol/L Normal 136 - 145 [facility] Comment on above: Performed By: #### 2 09571 ####[facility],[address] [place] [address] Urea nitrogen [Mass/Vol] 15 mg/dL Normal 7 - 18 [facility] Comment on above: Performed By: #### 2 36911 ####[facility],[address] [place] [address] CORONAVIRUS (SARS) ANTIGEN T ESTon 11-04-2024 EXTERNAL QC DONE? YES Normal [facility] Comment on above: Performed By: #### 2 08515 ####[facility],[address] [place] [address] INTERNAL CONTROL PASS Normal [facility] Comment on above: Performed By: #### 2 86464 ####[facility],[address] [place] [address] SARS ANTIGEN Negative Normal NORMAL: NEGATIVE [facility] Comment on above: Performed By: #### 2 82575 ####[facility],[address] [place] [address] SEND TO ? NO Normal [facility] Comment on above: Result Comment: SARS -CoV-2THIS TEST IS BEING USED UNDER THE FDA EUA PROCEDURE. THIS ASSAY HAS BEENVALIDATED AT [facility] FOR USE WITH NASAL AND NASOPHARYNGEAL SWABSPECIMENS.INTERPRETIVE [...] BY HEALTHCARE PROVIDERS IN CONSULTATION WITH PUBLIC [facility]. Performed By: #### 2 83085 ####[facility],[address] [place], [place] [address] CT ANGIOGRAPHY CHEST W/CONTR Darling 11-04-2024 CT [...] 11/04/2024 8:33:11 PM Ordering Provider: KAYLA RYAN [facility] CT CHEST (PE PROTOCOL)on CT CHEST (PE PROTOCOL) Normal [facility] CULTURE BLOOD [MARIA TERESA]on Microscopic examination of blood, culture CULTURE BLOOD [MARIA TERESA] _BLO[facility] CULTURE_ [facility] AND [facility]ACH[facility] FOR SCANNED REPORT 11/11/24.1113.DNP.COMP [facility] Comment on above: Performed By: #### 2 06744 ####[facility],[address] [place] [address] Microscopic examination of blood, culture CULTURE BLOOD [MARIA TERESA] _BLOOD CULTURE_ [facility] AND ATTACH[facility] FOR SCANNED REPORT 11/11/24.1114.DNP.COMP [facility] Comment on above: Performed By: #### 2 41995 ####[facility],[address] [place] [address] CVFLURVon 11-04-2024 FLU A PCR Negative Normal Negative [facility] Comment on above: Result Comment: Note s [id number] Performed By: #### L AC #### [place] [address] FLU B PCR Negative Normal Negative [facility] Comment on above: Result Comment: Note s [id number] Performed By: #### L AC #### [place] [address] RSV PCR Negative Normal Negative [facility] Comment on above: Result Comment: Note s [id number] Performed By: #### L AC #### [place] [address] SARS-CoV-2 (COVID-19) RNA ALEJANDRO+probe Ql (Unsp spec) Negative Normal Negative [facility] Comment on above: Result Comment: [place] s [phone] This test has been authorized by FDA [...] results. Performed By: #### L AC #### [place] [address] D-DIMER, QUANTITATIVEon 10-23 D-DIMER QUANT 1795 ng/ml High 0 - 230 [facility] Comment on above: Performed By: #### 2 95497 ####[facility],[address] [place], [place] [address] D-DIMER, QUANTITATIVE Normal [facility] Comment on above: Result Comment: SILVANO T D-DIMER Performed By: #### 2 94578 ####[facility],[address] [place] [address] 23027 FEon 11-04-2024 Iron [Mass/Vol] 18 ug/dL Low 50-170 [facility] Comment on above: Performed By: #### L AC #### [place] [id number] [place] 11-04-2024 Ferritin [Mass/Vol] 88.7 ng/mL Normal 8.0-252.0 [facility] Comment on above: Performed By: #### L AC #### [place] [id number] IBCon 11-04-2024 TIBC 328 mcg/dL Normal 250-500 [facility] Comment on above: Performed By: #### L AC #### [place] [address] INFLUENZA VIRUS RAPID A/Bon 11-04-2024 INFLUENZA VIRUS RAPID A/B Normal [facility] Comment on above: Performed By: #### 2 99131 ####[facility],[address] [place] [address] LABORATORYOrdered By: [employer] on 11-04-2024 Natriuretic peptide.B prohormone N-Terminal [...] Lactic Acid Lvl 1.4 mmol/L Normal 0.5-2.2 [facility] Comment on above: Performed By: #### L AC #### [place] [address] LACTATEon 11-04-2024 Lactate [Moles/Vol] 1.8 mmol/L Normal 0.4 - 2.0 [facility] Comment on above: Performed By: #### 2 90058 ####[facility],[address] [place], [place] [address] Lactate [Moles/Vol] 4.6 mmol/L Critically high 0.4 - 2.0 [facility] Comment on above: Result Comment: { CA LLED TO N BIVINS 0727 MKY{ READ BACK BY SAME LACTATE 3 HR NOTIFIED TO: _ENRIQUE_P 11/04/24.MKY. . . LACTATE 3 HR NOTIFIED BY: _MKY 11/04/24.MKY. . . Performed By: #### 2 97360 ####[facility],[address] [place] [address] 52353 MGon 11-04-2024 Magnesium [Mass/Vol] 1.9 mg/dL Normal 1.6-2.4 [facility] Comment on above: Performed By: #### L AC #### [place] [address] MYCOon 11-04-2024 Mycoplasma IgM Negative Normal [facility] Comment on above: Result Comment: INTE RPRETATION OF MYCOPLASMA IgM: Negative: IgM to M. pneumoniae Absent, or at levels below the assay limit of detection. Positive: IgM to M. pneumoniae Present. Invalid: Test results are invalid due to invalid internal control. Assay was performed in duplicate. Repeat testing is suggested if clinically indicated. Performed By: #### L AC #### [place] [address] NT-proBNPon 11-04-2024 Natriuretic peptide B (Bld) [Mass/Vol] 4211 pg/mL High 0 - 125 [facility] Comment on above: Performed By: #### 2 49289 ####[facility],[address] [place] [address] 49149 No Panel Informationon 11-04 Legionella Urine Ag Presumptive negative for L. pneumophila serogroup 1 antigen in urine, suggesting no recent or current infection. Legionnaire's disease cannot be ruled out since other serogroups and species may also cause disease. [facility] Streptococcus Pneumoniae Urine Antig Presumptive negative for pneumococcal pneumonia, suggesting no current or recent pneumococcal infection. Infection due to Strep pneumoniae cannot be ruled out since the antigen present in the sample may be below the detection limit of the test. [facility] Comment on above: This test has not be en evaluated on patients taking antibiotics for greater than 24 hours or on patients who have recently completed an antibiotic regimen. The accuracy of this test has not been proven in young children. Microscopic examination of blood, culture Blood Culture: No Growth at 5 days. [facility] PBNPon 11-04-2024 Natriuretic peptide B (Bld) [Mass/Vol] 7106 pg/mL High 0-900 [facility] Comment on above: Order Comment: use e xisting specimen Performed By: #### L AC #### [place] [address] RSVon 11-04-2024 RSV Normal [facility] Comment on above: Performed By: #### 2 16876 ####[address] [address] TRFon 11-04-2024 Transferrin [Mass/Vol] 278 mg/dL Normal 202-336 [facility] Comment on above: Performed By: #### L AC #### [place] [address] TROPONINon 11-04-2024 HS TROPONIN 27.6 pg/mL Normal 0.0 - 51.4 [facility] Comment on above: Performed By: #### 2 24214 ####[address] [address] URINALYSISon 11-04-2024 Amorphous NONE Normal [facility] Comment on above: Performed By: #### 2 67811 ####[address] [address] Bacteria TRACE Normal [facility] Comment on above: Performed By: #### 2 02221 ####[address] [address] Bilirubin Ql (U) Negative Normal NORMAL: NEGATIVE [facility] Comment on above: Performed By: #### 2 60225 ####[facility],[address] [place] [address] 21188 Casts NONE Normal [facility] Comment on above: Performed By: #### 2 49563 ####[facility],[address] [place] [address] 73177 Clarity (U) clear Normal NORMAL: CLEAR [facility] Comment on above: Performed By: #### 2 54441 ####[facility],[address] [place] [address] 00911 Color (U) yellow Normal NORMAL: YELLOW [facility] Comment on above: Performed By: #### 2 17914 ####[facility],[address] [place] [address] 75219 Crystals LM Nom (Urine sed) NONE Normal [facility] Comment on above: Performed By: #### 2 35255 ####[facility],[address] [place] [address] 62894 Epi Cells NONE Normal [facility] Comment on above: Performed By: #### 2 02505 ####[facility],[address] [place] [address] 50052 Glucose Ql (U) 250 Abnormal NORMAL: NORMAL [facility] Comment on above: Performed By: #### 2 92005 ####[facility],[address] [place] [address] 12168 Hemoglobin Ql (U) 25 Abnormal NORMAL: NEGATIVE [facility] Comment on above: Performed By: #### 2 40793 ####[facility],[address] [place] [address] 24861 Ketone Negative Normal NORMAL: NEGATIVE [facility] Comment on above: Performed By: #### 2 66134 ####[facility],[address] [place] [address] 30215 Leukocytes Negative Normal NORMAL: NEGATIVE [facility] Comment on above: Performed By: #### 2 59535 ####[facility],[address] [place] [address] 82607 Mucous NONE Normal [facility] Comment on above: Performed By: #### 2 77899 ####[facility],[address] [place] [address] 74147 Nitrite Ql (U) Negative Normal NORMAL: NEGATIVE [facility] Comment on above: Performed By: #### 2 82812 ####[facility],[address] [place] [address] pH (U) 7 [pH] Normal NORMAL: 5.0-8.0 [facility] Comment on above: Performed By: #### 2 81862 ####[facility],[address] [place] [address] Protein Ql (U) 500 Abnormal NORMAL: NEGATIVE [facility] Comment on above: Performed By: #### 2 73750 ####[facility],[address] [place] [address] Rbc 5-10 Normal 0-3/hpf [facility] Comment on above: Performed By: #### 2 18726 ####[facility],[address] [place] [address] Sp [place] 1.010 Normal NORMAL: 1.010-1.030 [facility] Comment on above: Performed By: #### 2 19577 ####[facility],[address] [place], [place] [address] Specimen Type R Normal [facility] Comment on above: Performed By: #### 2 69014 ####[facility],[address] [place], [place] [address] Urinalysis dipstick W Reflex Microscopic panel (U) SEE BELOW Normal [facility] Comment on above: Result Comment: MICR OSCOPIC Performed By: #### 2 86598 ####[facility],[address] [place] [address] 80522 Urobilinog NORM Normal NORMAL: NORMAL [facility] Comment on above: Performed By: #### 2 16984 ####[facility],[address] [place] [address] 61925 Wbc 1-5 Normal 0-5/hpf [facility] Comment on above: Performed By: #### 2 83683 ####[facility],[address] [place] [address] 50653 Yeast NONE Normal [facility] Comment on above: Performed By: #### 2 62029 ####[facility],[address] [place] [address] URINE CULTURE [CCL]on 2024 Bacteria identified Cx Nom (U) Normal [facility] Comment on above: Performed By: #### 2 61416 ####[facility],[address] [place] [address] XR ABDOMEN APon 11-04-2024 XR ABDOMEN AP [...] 11/04/2024 12:56:39 PM Ordering Provider: KAYLA RYAN [facility] XR CHEST 1 VIEWon 11-04-2024 XR [...] 11/04/2024 12:56:39 PM Ordering Provider: KAYLA RYAN [facility] CBC + DIFF DAILYon Baso # 0.04 x10EE3/UL Normal 0.00 - 0.10 [facility] Comment on above: Performed By: #### 2 47468 ####[facility],[address] [place] [address] Basophils/100 WBC (Bld) 0.6 % Normal 0.0 - 2.0 [facility] Comment on above: Performed By: #### 2 73726 ####[facility],[address] [place] [address] CBC + DIFF DAILY Normal [facility] Comment on above: Result Comment: CBC- COMPLETE BLOOD COUNT Performed By: #### 2 40493 ####[place] [address] EO # 0.13 x10EE3/UL Normal 0.00 - 0.50 [facility] Comment on above: Performed By: #### 2 79624 ####[facility],[address] [place], [place] [address] Eosinophils/100 WBC (Bld) 2.0 % Normal 0.0 - 7.0 [facility] Comment on above: Performed By: #### 2 93853 ####[facility],[address] [place] [address] Erythrocyte distribution width (RBC) [Ratio] 14.2 % Normal 12.0 - 15.6 [facility] Comment on above: Performed By: #### 2 30245 ####[facility],[address] [place] [address] Hematocrit (Bld) [Volume fraction] 34.4 % Normal 34.0 - 46.0 [facility] Comment on above: Performed By: #### 2 53334 ####[facility],[address] [place] [address] Hemoglobin (Bld) [Mass/Vol] 11.3 g/dL Low 12.0 - 16.0 [facility] Comment on above: Performed By: #### 2 72253 ####[facility],[address] [place] [address] Lymph # 1.74 x10EE3/UL Normal 0.80 - 2.80 [facility] Comment on above: Performed By: #### 2 81764 ####[facility],[address] [place], [place] [address] Lymphocytes/100 WBC (Bld) 26.5 % Normal 20.0 - 45.0 [facility] Comment on above: Performed By: #### 2 26685 ####[facility],[address] [place], [place] [id number] MANUAL DIFF N/A Normal [facility] Comment on above: Performed By: #### 2 96755 ####[facility],[address] [place], [place] [id number] MCH (RBC) [Entitic mass] 30 pg Normal 27 - 33 [facility] Comment on above: Performed By: #### 2 16648 ####[facility],[address] [place] [address] MCHC 33 X10 3 Normal 32 - 36 [facility] Comment on above: Performed By: #### 2 65925 ####[facility],[address] [place], [place] [id number] MCV (RBC) [Entitic vol] 93 fL Normal 80 - 99 [facility] Comment on above: Performed By: #### 2 76757 ####[facility],[address] [place] [address] Cloud # 0.86 x10EE3/UL Normal 0.20 - 1.00 [facility] Comment on above: Performed By: #### 2 47271 ####[facility],[address] [place] [address] MONOS % 13.1 % High 0.0 - 10.0 [facility] Comment on above: Performed By: #### 2 16959 ####[facility],[address] [place] [address] Morphology Dandy (Bld) [Interp] N/A Normal [facility] Comment on above: Performed By: #### 2 41823 ####[facility],[address] [place] [address] Neut # 3.81 x10EE3/UL Normal 1.50 - 7.10 [facility] Comment on above: Performed By: #### 2 30904 ####[facility],[address] [place] [address] Neutrophils/100 WBC (Bld) 57.8 % Normal 46.0 - 76.0 [facility] Comment on above: Performed By: #### 2 86934 ####[facility],[address] [place] [address] PLATELET 308 x10EE3/UL Normal 150 - 450 [facility] Comment on above: Performed By: #### 2 91942 ####[facility],[address] [place] [address] 64986 Platelet mean volume (Bld) [Entitic vol] 7.4 fL Normal 6.6 - 10.5 [facility] Comment on above: Result Comment: AUTO MATED DIFFERENTIAL Performed By: #### 2 16303 ####[facility],[address] [place] [address] 73497 RBC 3.71 x 10EE6/UL Low 4.10 - 5.30 [facility] Comment on above: Performed By: #### 2 50848 ####[facility],[address] [place] [address] 35612 WBC 6.6 x 10EE3/UL Normal 4.5 - 10.8 [facility] Comment on above: Performed By: #### 2 26738 ####[facility],[address] [place] [address] 53398 CMP with eGFR - DAILYon -0 AGE 69 years Normal [facility] Comment on above: Performed By: #### 2 77275 ####[facility],[address] [place] [address] 27417 Albumin [Mass/Vol] 2.4 g/dL Low 3.4 - 5.0 [facility] Comment on above: Performed By: #### 2 69410 ####[facility],[address] [place] [address] 58575 Albumin/Globulin [Mass ratio] 0.7 {ratio} Low 0.9 - 1.6 [facility] Comment on above: Performed By: #### 2 08957 ####[facility],[address] [place] [address] 68338 ALK PHOS 99 U/L Normal 46 - 116 [facility] Comment on above: Performed By: #### 2 75537 ####[facility],[address] [place] [address] 79290 ALT [Catalytic activity/Vol] 51 U/L Normal 16 - 63 [facility] Comment on above: Performed By: #### 2 23124 ####[facility],[address] [place] [address] 34454 Anion gap [Moles/Vol] 9 mmol/L Low 10 - 20 [facility] Comment on above: Performed By: #### 2 53882 ####[facility],[address] [place] [address] 22902 AST [Catalytic activity/Vol] 31 U/L Normal 13 - 39 [facility] Comment on above: Performed By: #### 2 34294 ####[facility],[address] [place] [address] 90732 B/C RATIO 20 ratio Normal 0 - 30 [facility] Comment on above: Performed By: #### 2 68655 ####[facility],[address] [place] [address] 49267 Bilirubin [Mass/Vol] 0.5 mg/dL Normal 0.2 - 1.0 [facility] Comment on above: Performed By: #### 2 42954 ####[facility],[address] [place] [address] 03973 Calcium [Mass/Vol] 8.7 mg/dL Normal 8.5 - 10.1 [facility] Comment on above: Performed By: #### 2 83210 ####[facility],[address] [place] [address] 04762 Chloride [Moles/Vol] 104 mmol/L Normal 98 - 107 [facility] Comment on above: Performed By: #### 2 72255 ####[facility],[address] [place] [address] 61887 CMP with eGFR - DAILY Normal [facility] Comment on above: Result Comment: COMP REHENSIVE METABOLIC PANEL Performed By: #### 2 78603 ####[facility],[address] [place] [address] 00341 CO2 [Moles/Vol] 31.4 mmol/L Normal 21.0 - 32.0 [facility] Comment on above: Performed By: #### 2 80985 ####[facility],[address] [place] [address] 78477 Creatinine [Mass/Vol] 0.82 mg/dL Normal 0.55 - 1.02 [facility] Comment on above: Performed By: #### 2 93498 ####[facility],[address] [place] [address] GFR/1.73 sq M.predicted among non-blacks MDRD (S/P/Bld) [Vol rate/Area] mL/min/{1.73_m2} Normal 60 - 999 [facility] Comment on above: Performed By: #### 2 17332 ####[facility],[address] [place] [address] Result Comment: ACCO RDING TO THE NATIONAL KIDNEY DISEASE EDUCATION PROGRAM(NKDE), A NORMAL eGFRIS A VALUE GREATER THAN OR EQUAL TO 60 ML/MIN/1.73 SQ METERS.CHRONIC KIDNEY DISEASE: <60mL/MIN/1.73 SQ METERSKIDNEY FAILURE: <15mL/MIN/1.73 SQ METERS Globulin (S) [Mass/Vol] 3.6 g/dL Normal 1.5 - 3.8 [facility] Comment on above: Performed By: #### 2 66685 ####[facility],[address] [place] [address] 60035 Glucose [Mass/Vol] 121 mg/dL High 74 - 106 [facility] Comment on above: Performed By: #### 2 75257 ####[facility],[address] [place] [address] 38221 Potassium [Moles/Vol] 3.4 mmol/L Low 3.5 - 5.1 [facility] Comment on above: Performed By: #### 2 35314 ####[facility],[address] [place] [address] 67973 Protein [Mass/Vol] 6.0 g/dL Low 6.4 - 8.2 [facility] Comment on above: Performed By: #### 2 85353 ####[facility],[address] [place] [address] 15921 Sodium [Moles/Vol] 141 mmol/L Normal 136 - 145 [facility] Comment on above: Performed By: #### 2 83903 ####[facility],[address] [place] [address] Urea nitrogen [Mass/Vol] 16 mg/dL Normal 7 - 18 [facility] Comment on above: Performed By: #### 2 92426 ####[facility],[address] [place] [address] CBC + DIFF DAILYon 4 Baso # 0.05 x10EE3/UL Normal 0.00 - 0.10 [facility] Comment on above: Performed By: #### 2 34423 ####[facility],[address] [place] [address] 71582 Basophils/100 WBC (Bld) 0.7 % Normal 0.0 - 2.0 [facility] Comment on above: Performed By: #### 2 91146 ####[facility],[address] [place] [address] 56905 CBC + DIFF DAILY Normal [facility] Comment on above: Result Comment: CBC- COMPLETE BLOOD COUNT Performed By: #### 2 10541 ####[facility],[address] [place] [address] 42214 EO # 0.07 x10EE3/UL Normal 0.00 - 0.50 [facility] Comment on above: Performed By: #### 2 03329 ####[facility],[address] [place] [address] 29342 Eosinophils/100 WBC (Bld) 1.1 % Normal 0.0 - 7.0 [facility] Comment on above: Performed By: #### 2 20869 ####[facility],[address] [place], [place] [address] Erythrocyte distribution width (RBC) [Ratio] 14.0 % Normal 12.0 - 15.6 [facility] Comment on above: Performed By: #### 2 46888 ####[facility],[address] [place] [address] Hematocrit (Bld) [Volume fraction] 32.5 % Low 34.0 - 46.0 [facility] Comment on above: Performed By: #### 2 86530 ####[facility],[address] [place] [address] Hemoglobin (Bld) [Mass/Vol] 10.8 g/dL Low 12.0 - 16.0 [facility] Comment on above: Performed By: #### 2 09589 ####[facility],[address] [place] [address] Lymph # 1.69 x10EE3/UL Normal 0.80 - 2.80 [facility] Comment on above: Performed By: #### 2 33089 ####[facility],[address] [place] [address] Lymphocytes/100 WBC (Bld) 25.1 % Normal 20.0 - 45.0 [facility] Comment on above: Performed By: #### 2 99116 ####[facility],[address] [place] [address] MANUAL DIFF N/A Normal [facility] Comment on above: Performed By: #### 2 99138 ####[facility],[address] [place] [address] MCH (RBC) [Entitic mass] 31 pg Normal 27 - 33 [facility] Comment on above: Performed By: #### 2 91367 ####[place] [address] MCHC 33 X10 3 Normal 32 - 36 [facility] Comment on above: Performed By: #### 2 25388 ####[facility],[address] [place] [address] MCV (RBC) [Entitic vol] 92 fL Normal 80 - 99 [facility] Comment on above: Performed By: #### 2 75043 ####[facility],[address] [place] [address] Cloud # 0.93 x10EE3/UL Normal 0.20 - 1.00 [facility] Comment on above: Performed By: #### 2 17796 ####[facility],[address] [place] [address] MONOS % 13.8 % High 0.0 - 10.0 [facility] Comment on above: Performed By: #### 2 46676 ####[facility],[address] [place] [address] Morphology Dandy (Bld) [Interp] N/A Normal [facility] Comment on above: Performed By: #### 2 63726 ####[facility],[address] [place] [address] Neut # 3.99 x10EE3/UL Normal 1.50 - 7.10 [facility] Comment on above: Performed By: #### 2 36790 ####[place] [address] Neutrophils/100 WBC (Bld) 59.3 % Normal 46.0 - 76.0 [facility] Comment on above: Performed By: #### 2 85938 ####[facility],[address] [place] [address] PLATELET 303 x10EE3/UL Normal 150 - 450 [facility] Comment on above: Performed By: #### 2 42538 ####[place] [address] Platelet mean volume (Bld) [Entitic vol] 7.6 fL Normal 6.6 - 10.5 [facility] Comment on above: Result Comment: AUTO MATED DIFFERENTIAL Performed By: #### 2 71015 ####[facility],[address] [place] [address] 93280 RBC 3.54 x 10EE6/UL Low 4.10 - 5.30 [facility] Comment on above: Performed By: #### 2 69315 ####[facility],[address] [place] [address] 53100 WBC 6.7 x 10EE3/UL Normal 4.5 - 10.8 [facility] Comment on above: Performed By: #### 2 93854 ####[facility],[address] [place] [address] 86068 CMP with eGFR - DAILYon 12-3 AGE 69 years Normal [facility] Comment on above: Performed By: #### 2 45040 ####[facility],[address] [place] [address] 85501 Albumin [Mass/Vol] 2.5 g/dL Low 3.4 - 5.0 [facility] Comment on above: Performed By: #### 2 91225 ####[facility],[address] [place] [address] 88874 Albumin/Globulin [Mass ratio] 0.7 {ratio} Low 0.9 - 1.6 [facility] Comment on above: Performed By: #### 2 51115 ####[facility],[address] [place] [address] 63905 ALK PHOS 103 U/L Normal 46 - 116 [facility] Comment on above: Performed By: #### 2 57428 ####[facility],[address] [place] [address] 26121 ALT [Catalytic activity/Vol] 58 U/L Normal 16 - 63 [facility] Comment on above: Performed By: #### 2 54185 ####[facility],[address] [place] [address] 20975 Anion gap [Moles/Vol] 13 mmol/L Normal 10 - 20 [facility] Comment on above: Performed By: #### 2 61101 ####[facility],[address] [place] [address] 38529 AST [Catalytic activity/Vol] 34 U/L Normal 13 - 39 [facility] Comment on above: Performed By: #### 2 38212 ####[facility],[address] [place] [address] 44215 B/C RATIO 18 ratio Normal 0 - 30 [facility] Comment on above: Performed By: #### 2 81660 ####[facility],[address] [place] [address] 48159 Bilirubin [Mass/Vol] 0.6 mg/dL Normal 0.2 - 1.0 [facility] Comment on above: Performed By: #### 2 79313 ####[facility],[address] [place] [address] 57113 Calcium [Mass/Vol] 8.6 mg/dL Normal 8.5 - 10.1 [facility] Comment on above: Performed By: #### 2 81379 ####[facility],[address] [place] [address] 60983 Chloride [Moles/Vol] 103 mmol/L Normal 98 - 107 [facility] Comment on above: Performed By: #### 2 08539 ####[facility],[address] [place] [address] 68069 CMP with eGFR - DAILY Normal [facility] Comment on above: Result Comment: COMP REHENSIVE METABOLIC PANEL Performed By: #### 2 53547 ####[facility],[address] [place] [address] 79523 CO2 [Moles/Vol] 27.4 mmol/L Normal 21.0 - 32.0 [facility] Comment on above: Performed By: #### 2 83374 ####[facility],[address] [place] [address] 20577 Creatinine [Mass/Vol] 0.84 mg/dL Normal 0.55 - 1.02 [facility] Comment on above: Performed By: #### 2 29991 ####[facility],[address] [place] [address] 64605 GFR/1.73 sq M.predicted among non-blacks MDRD (S/P/Bld) [Vol rate/Area] mL/min/{1.73_m2} Normal 60 - 999 [facility] Comment on above: Performed By: #### 2 15150 ####[facility],[address] [place] [address] Result Comment: ACCO RDING TO THE NATIONAL KIDNEY DISEASE EDUCATION PROGRAM(NKDE), A NORMAL eGFRIS A VALUE GREATER THAN OR EQUAL TO 60 ML/MIN/1.73 SQ METERS.CHRONIC KIDNEY DISEASE: <60mL/MIN/1.73 SQ METERSKIDNEY FAILURE: <15mL/MIN/1.73 SQ METERS Globulin (S) [Mass/Vol] 3.4 g/dL Normal 1.5 - 3.8 [facility] Comment on above: Performed By: #### 2 41491 ####[place] [id number] Glucose [Mass/Vol] 93 mg/dL Normal 74 - 106 [facility] Comment on above: Performed By: #### 2 53651 ####[address] [address] Potassium [Moles/Vol] 2.9 mmol/L Critically low 3.5 - 5.1 [facility] Comment on above: Result Comment: { CA LLED TO MED SURG AT 0738{ READ BACK BY KS TO CWB Performed By: #### 2 29532 ####[facility],[address] [place] [address] 26958 Protein [Mass/Vol] 5.9 g/dL Low 6.4 - 8.2 [facility] Comment on above: Performed By: #### 2 36353 ####[address] [address] Sodium [Moles/Vol] 140 mmol/L Normal 136 - 145 [facility] Comment on above: Performed By: #### 2 59558 ####[facility],[address] [place] [address] Urea nitrogen [Mass/Vol] 15 mg/dL Normal 7 - 18 [facility] Comment on above: Performed By: #### 2 36076 ####[facility],[address] [place] [address] CV ECHO COMPLETEon CV ECHO COMPLETE Normal [facility] CBC + DIFFon 10-21-2024 Baso # 0.02 x10EE3/UL Normal 0.00 - 0.10 [facility] Comment on above: Performed By: #### 2 64740 ####[facility],[address] [place] [address] Basophils/100 WBC (Bld) 0.3 % Normal 0.0 - 2.0 [facility] Comment on above: Performed By: #### 2 04427 ####[facility],[address] [place] [address] CBC + DIFF Normal [facility] Comment on above: Result Comment: CBC- COMPLETE BLOOD COUNT Performed By: #### 2 94080 ####[facility],[address] [place] [address] EO # 0.09 x10EE3/UL Normal 0.00 - 0.50 [facility] Comment on above: Performed By: #### 2 91372 ####[facility],[address] [place] [address] Eosinophils/100 WBC (Bld) 1.3 % Normal 0.0 - 7.0 [facility] Comment on above: Performed By: #### 2 08887 ####[facility],[address] [place] [address] Erythrocyte distribution width (RBC) [Ratio] 14.3 % Normal 12.0 - 15.6 [facility] Comment on above: Performed By: #### 2 88931 ####[facility],[address] [place] [address] Hematocrit (Bld) [Volume fraction] 32.6 % Low 34.0 - 46.0 [facility] Comment on above: Performed By: #### 2 25360 ####[facility],[address] [place] [address] 64801 Hemoglobin (Bld) [Mass/Vol] 10.9 g/dL Low 12.0 - 16.0 [facility] Comment on above: Performed By: #### 2 34593 ####[facility],[address] [place] [address] Lymph # 1.38 x10EE3/UL Normal 0.80 - 2.80 [facility] Comment on above: Performed By: #### 2 00396 ####[facility],[address] [place], [place] [address] Lymphocytes/100 WBC (Bld) 19.4 % Low 20.0 - 45.0 [facility] Comment on above: Performed By: #### 2 77028 ####[facility],[address] [place] [address] 32610 MANUAL DIFF N/A Normal [facility] Comment on above: Performed By: #### 2 03319 ####[facility],[address] [place] [address] 94938 MCH (RBC) [Entitic mass] 31 pg Normal 27 - 33 [facility] Comment on above: Performed By: #### 2 52695 ####[facility],[address] [place] [address] 60743 MCHC 34 X10 3 Normal 32 - 36 [facility] Comment on above: Performed By: #### 2 73545 ####[facility],[address] [place] [address] 78242 MCV (RBC) [Entitic vol] 92 fL Normal 80 - 99 J [facility] Comment on above: Performed By: #### 2 99805 ####[facility],[address] [place] [address] 23589 Cloud # 0.76 x10EE3/UL Normal 0.20 - 1.00 [facility] Comment on above: Performed By: #### 2 14466 ####[facility],[address] [place] [address] 72118 MONOS % 10.7 % High 0.0 - 10.0 [facility] Comment on above: Performed By: #### 2 05430 ####[facility],[address] [place] [address] 45327 Morphology Dandy (Bld) [Interp] N/A Normal [facility] Comment on above: Performed By: #### 2 53213 ####[facility],[address] [place] [address] 78291 Neut # 4.87 x10EE3/UL Normal 1.50 - 7.10 [facility] Comment on above: Performed By: #### 2 01297 ####[facility],[address] [place] [address] 25136 Neutrophils/100 WBC (Bld) 68.4 % Normal 46.0 - 76.0 [facility] Comment on above: Performed By: #### 2 52702 ####[facility],[address] [place] [address] 50750 PLATELET 301 x10EE3/UL Normal 150 - 450 [facility] Comment on above: Performed By: #### 2 97359 ####[facility],[address] [place] [address] 96409 Platelet mean volume (Bld) [Entitic vol] 7.2 fL Normal 6.6 - 10.5 [facility] Comment on above: Result Comment: AUTO MATED DIFFERENTIAL Performed By: #### 2 66878 ####[facility],[address] [place] [address] 08234 RBC 3.56 x 10EE6/UL Low 4.10 - 5.30 [facility] Comment on above: Performed By: #### 2 45450 ####[facility],[address] [place] [address] 11327 WBC 7.1 x 10EE3/UL Normal 4.5 - 10.8 [facility] Comment on above: Performed By: #### 2 58588 ####[facility],[address] [place], [place] [id number] CHEST 1 VIEWon 10-21-2024 CHEST [address] [facility] CMP with eGFRon 10-21-2024 AGE 69 years Normal [facility] Comment on above: Performed By: #### 2 03346 ####[facility],[address] [place], [place] [id number] Albumin [Mass/Vol] 2.7 g/dL Low 3.4 - 5.0 [facility] Comment on above: Performed By: #### 2 85088 ####[facility],[address] [place], [place] [address] Albumin/Globulin [Mass ratio] 0.8 {ratio} Low 0.9 - 1.6 [facility] Comment on above: Performed By: #### 2 93229 ####[facility],[address] [place], [place] [address] ALK PHOS 111 U/L Normal 46 - 116 [facility] Comment on above: Performed By: #### 2 72385 ####[facility],[address] [place] [address] 84597 ALT [Catalytic activity/Vol] 65 U/L High 16 - 63 [facility] Comment on above: Performed By: #### 2 34894 ####[facility],[address] [place] [address] 78297 Anion gap [Moles/Vol] 14 mmol/L Normal 10 - 20 [facility] Comment on above: Performed By: #### 2 78602 ####[facility],[address] [place] [address] 26630 AST [Catalytic activity/Vol] 38 U/L Normal 13 - 39 [facility] Comment on above: Performed By: #### 2 48819 ####[facility],[address] [place] [address] 16977 B/C RATIO 15 ratio Normal 0 - 30 [facility] Comment on above: Performed By: #### 2 17402 ####[facility],[address] [place] [address] 22599 Bilirubin [Mass/Vol] 0.7 mg/dL Normal 0.2 - 1.0 [facility] Comment on above: Performed By: #### 2 88397 ####[facility],[address] [place] [address] 20742 Calcium [Mass/Vol] 8.5 mg/dL Normal 8.5 - 10.1 [facility] Comment on above: Performed By: #### 2 94867 ####[facility],[address] [place], [place] [id number] Chloride [Moles/Vol] 104 mmol/L Normal 98 - 107 [facility] Comment on above: Performed By: #### 2 83510 ####[facility],[address] [place] [address] CMP with eGFR Normal [facility] Comment on above: Result Comment: COMP REHENSIVE METABOLIC PANEL Performed By: #### 2 74082 ####[facility],[address] [place] [address] 79931 CO2 [Moles/Vol] 27.0 mmol/L Normal 21.0 - 32.0 [facility] Comment on above: Performed By: #### 2 82752 ####[facility],[address] [place] [address] 30174 Creatinine [Mass/Vol] 0.78 mg/dL Normal 0.55 - 1.02 [facility] Comment on above: Performed By: #### 2 40029 ####[facility],[address] [place] [address] 91179 GFR/1.73 sq M.predicted among non-blacks MDRD (S/P/Bld) [Vol rate/Area] mL/min/{1.73_m2} Normal 60 - 999 [facility] Comment on above: Performed By: #### 2 81716 ####[facility],[address] [place] [address] Result Comment: ACCO RDING TO THE NATIONAL KIDNEY DISEASE EDUCATION PROGRAM(NKDE), A NORMAL eGFRIS A VALUE GREATER THAN OR EQUAL TO 60 ML/MIN/1.73 SQ METERS.CHRONIC KIDNEY DISEASE: <60mL/MIN/1.73 SQ METERSKIDNEY FAILURE: <15mL/MIN/1.73 SQ METERSTHIS TEST SHOULD ONLY BE USED FOR PATIENTS 18 YEARS OF AGE AND OLDER. Globulin (S) [Mass/Vol] 3.5 g/dL Normal 1.5 - 3.8 [facility] Comment on above: Performed By: #### 2 94260 ####[facility],[address] [place] [address] 03125 Glucose [Mass/Vol] 92 mg/dL Normal 74 - 106 [facility] Comment on above: Performed By: #### 2 66853 ####[facility],[address] [place] [address] 14014 Potassium [Moles/Vol] 3.5 mmol/L Normal 3.5 - 5.1 [facility] Comment on above: Performed By: #### 2 65719 ####[facility],[address] [place] [address] 94722 Protein [Mass/Vol] 6.2 g/dL Low 6.4 - 8.2 [facility] Comment on above: Performed By: #### 2 72951 ####[facility],[address] [place] [address] 15965 Sodium [Moles/Vol] 141 mmol/L Normal 136 - 145 [facility] Comment on above: Performed By: #### 2 33060 ####[facility],[address] [place] [address] Urea nitrogen [Mass/Vol] 12 mg/dL Normal 7 - 18 [facility] Comment on above: Performed By: #### 2 24025 ####[facility],[address] [place] [address] CORONAVIRUS (SARS) ANTIGEN T ESTon 10-21-2024 EXTERNAL QC DONE? YES Normal [facility] Comment on above: Performed By: #### 2 43528 ####[facility],[address] [place] [address] INTERNAL CONTROL PASS Normal [facility] Comment on above: Performed By: #### 2 26044 ####[facility],[address] [place] [address] SARS ANTIGEN Negative Normal NORMAL: NEGATIVE [facility] Comment on above: Performed By: #### 2 02532 ####[facility],[address] [place] [address] SEND TO ? NO Normal [facility] Comment on above: Result Comment: SARS -CoV-2THIS TEST IS BEING USED UNDER THE FDA EUA PROCEDURE. THIS ASSAY HAS BEENVALIDATED AT [facility] FOR USE WITH NASAL AND NASOPHARYNGEAL SWABSPECIMENS.INTERPRETIVE [...] BECONSIDERED BY HEALTHCARE PROVIDERS IN CONSULTATION WITH [facility]. Performed By: #### 2 83547 ####[facility],[address] [place], [place] [id number] ED MED ADMINISTRATION DETAIL on 10-21-2024 ED MED ADMINISTRATION DETAIL Normal [facility] ED NURSES CLINICAL NOTEon ED NURSES CLINICAL NOTE Normal [facility] ED ORDER SHEET (CPOE ONLY)on 10-21-2024 ED ORDER SHEET (CPOE ONLY) Normal [facility] ED PHYSICIAN CLINICAL REPORT on 10-21-2024 ED PHYSICIAN CLINICAL REPORT Normal [facility] ED PHYSICIAN DISCHARGE REPOR Ton 10-21-2024 ED PHYSICIAN DISCHARGE REPORT Normal [facility] ED SUPER BILLon 10-21-2024 ED SUPER BILL Normal [facility] ED VISIT SUMMARYon ED VISIT SUMMARY Normal [facility] ED VITALS FLOW SHEETon 10-21 ED VITALS FLOW SHEET Normal [facility] INFLUENZA VIRUS RAPID A/Bon 10-21-2024 INFLUENZA VIRUS RAPID A/B Normal [facility] Comment on above: Performed By: #### 2 90506 ####[facility],[address] [place], [place] [id number] NT-proBNPon 10-21-2024 Natriuretic peptide B (Bld) [Mass/Vol] 3719 pg/mL High 0 - 125 [facility] Comment on above: Performed By: #### 2 76744 ####[facility],[address] [place] [address] TROPONINon 10-21-2024 HS TROPONIN 20.1 pg/mL Normal 0.0 - 51.4 [facility] Comment on above: Performed By: #### 2 34332 ####[facility],[address] [place] [address] ED MED ADMINISTRATION DETAIL on 10-10-2024 ED MED ADMINISTRATION DETAIL Normal [facility] ED NURSES CLINICAL NOTEon ED NURSES CLINICAL NOTE Normal [facility] ED ORDER SHEET (CPOE ONLY)on 10-10-2024 ED ORDER SHEET (CPOE ONLY) Normal [facility] ED PHYSICIAN CLINICAL REPORT on 10-10-2024 ED PHYSICIAN CLINICAL REPORT Normal [facility] ED PHYSICIAN DISCHARGE REPOR Ton 10-10-2024 ED PHYSICIAN DISCHARGE REPORT Normal [facility] ED SUPER BILLon 10-10-2024 ED SUPER BILL Normal [facility] ED VISIT SUMMARYon ED VISIT SUMMARY Normal [facility] ED VITALS FLOW SHEETon 10-10 ED VITALS FLOW SHEET Normal [facility] CT BRAIN W/O CONTRASTon 09-22 CT BRAIN W/O CONTRAST Normal [facility] CT CERVICAL W/O CONTRASTon 12-10-2023 CT CERVICAL W/O CONTRAST Normal [facility] CT FACIAL BONES W/O CONTRAST on 10-09-2024 CT FACIAL BONES W/O CONTRAST Normal [facility] BMP with eGFRon 10-06-2024 AGE 69 years Normal [facility] Comment on above: Performed By: #### 2 13969 ####[facility],[address] [place] [address] Anion gap [Moles/Vol] 13 mmol/L Normal 10 - 20 [facility] Comment on above: Performed By: #### 2 58317 ####[facility],[address] [place] [address] 95006 BMP with eGFR Normal [facility] Comment on above: Result Comment: BASI C METABOLIC PANEL Performed By: #### 2 02231 ####[facility],[address] [place] [address] 34218 Calcium [Mass/Vol] 8.5 mg/dL Normal 8.5 - 10.1 [facility] Comment on above: Performed By: #### 2 04205 ####[facility],[address] [place] [address] 29528 Chloride [Moles/Vol] 101 mmol/L Normal 98 - 107 [facility] Comment on above: Performed By: #### 2 08792 ####[facility],[address] [place] [address] 34765 CO2 [Moles/Vol] 27.0 mmol/L Normal 21.0 - 32.0 [facility] Comment on above: Performed By: #### 2 04114 ####[facility],[address] [place] [address] 52177 Creatinine [Mass/Vol] 1.11 mg/dL High 0.55 - 1.02 [facility] Comment on above: Performed By: #### 2 36097 ####[facility],[address] [place] [address] 09189 eGFR 49 ML/MINUTE Low 60 - 999 [facility] Comment on above: Performed By: #### 2 21949 ####[facility],[address] [place] [address] 59415 eGFR(AA) 59 ML/MINUTE Low 60 - 999 [facility] Comment on above: Result Comment: ACCO RDING TO THE NATIONAL KIDNEY DISEASE EDUCATION PROGRAM(NKDE), A NORMAL eGFRIS A VALUE GREATER THAN OR EQUAL TO 60 ML/MIN/1.73 SQ METERS.CHRONIC KIDNEY DISEASE: <60mL/MIN/1.73 SQ METERSKIDNEY FAILURE: <15mL/MIN/1.73 SQ METERSTHIS TEST SHOULD ONLY BE USED FOR PATIENTS 18 YEARS OF AGE AND OLDER. Performed By: #### 2 74528 ####[facility],[address] [place] [address] 95389 Glucose [Mass/Vol] 197 mg/dL High 74 - 106 [facility] Comment on above: Performed By: #### 2 40374 ####[facility],[address] [place] [address] 35702 Potassium [Moles/Vol] 3.7 mmol/L Normal 3.5 - 5.1 [facility] Comment on above: Performed By: #### 2 40647 ####[facility],[address] [place] [address] 50993 Sodium [Moles/Vol] 137 mmol/L Normal 136 - 145 [facility] Comment on above: Performed By: #### 2 64525 ####[address] [address] Urea nitrogen [Mass/Vol] 39 mg/dL High 7 - 18 [facility] Comment on above: Performed By: #### 2 36242 ####[facility],[address] [place] [address] 31536 C-REACTIVE PROTEINon 024 CRP [Mass/Vol] mg/L Normal 0.00 - 0.90 [facility] Comment on above: Performed By: #### 2 98012 ####[address] [address] CBC + DIFFon 10-05-2024 Baso # 0.02 x10EE3/UL Normal 0.00 - 0.10 [facility] Comment on above: Performed By: #### 2 30724 ####[address] [address] Basophils/100 WBC (Bld) 0.2 % Normal 0.0 - 2.0 [facility] Comment on above: Performed By: #### 2 14354 ####[facility],[address] [place] [address] CBC + DIFF Normal [facility] Comment on above: Result Comment: CBC- COMPLETE BLOOD COUNT Performed By: #### 2 37475 ####[facility],[address] [place] [address] EO # 0.04 x10EE3/UL Normal 0.00 - 0.50 [facility] Comment on above: Performed By: #### 2 30853 ####[facility],[address] [place] [address] Eosinophils/100 WBC (Bld) 0.3 % Normal 0.0 - 7.0 [facility] Comment on above: Performed By: #### 2 96062 ####[facility],[address] [place] [address] Erythrocyte distribution width (RBC) [Ratio] 14.3 % Normal 12.0 - 15.6 [facility] Comment on above: Performed By: #### 2 67288 ####[facility],[address] [place] [address] Hematocrit (Bld) [Volume fraction] 37.0 % Normal 34.0 - 46.0 [facility] Comment on above: Performed By: #### 2 29568 ####[facility],[address] [place] [address] Hemoglobin (Bld) [Mass/Vol] 12.0 g/dL Normal 12.0 - 16.0 [facility] Comment on above: Performed By: #### 2 16864 ####[facility],[address] [place], [place] [address] Lymph # 0.94 x10EE3/UL Normal 0.80 - 2.80 [facility] Comment on above: Performed By: #### 2 54856 ####[facility],[address] [place], [place] [address] Lymphocytes/100 WBC (Bld) 8.5 % Low 20.0 - 45.0 [facility] Comment on above: Performed By: #### 2 73865 ####[facility],[address] [place] [address] MANUAL DIFF N/A Normal [facility] Comment on above: Performed By: #### 2 46591 ####[facility],[address] [place] [address] MCH (RBC) [Entitic mass] 30 pg Normal 27 - 33 [facility] Comment on above: Performed By: #### 2 47767 ####[facility],[address] [place] [address] MCHC 33 X10 3 Normal 32 - 36 [facility] Comment on above: Performed By: #### 2 53582 ####[facility],[address] [place] [address] MCV (RBC) [Entitic vol] 92 fL Normal 80 - 99 [facility] Comment on above: Performed By: #### 2 36270 ####[facility],[address] [place] [address] Cloud # 0.33 x10EE3/UL Normal 0.20 - 1.00 [facility] Comment on above: Performed By: #### 2 56305 ####[facility],[address] [place] [address] MONOS % 3.0 % Normal 0.0 - 10.0 [facility] Comment on above: Performed By: #### 2 62589 ####[facility],[address] [place] [address] Morphology Dandy (Bld) [Interp] N/A Normal [facility] Comment on above: Performed By: #### 2 00817 ####[facility],[address] [place] [address] Neut # 9.76 x10EE3/UL High 1.50 - 7.10 [facility] Comment on above: Performed By: #### 2 36051 ####[facility],[address] [place] [address] 59489 Neutrophils/100 WBC (Bld) 88.0 % High 46.0 - 76.0 [facility] Comment on above: Performed By: #### 2 41128 ####[facility],[address] [place] [address] 72315 PLATELET 402 x10EE3/UL Normal 150 - 450 [facility] Comment on above: Performed By: #### 2 67325 ####[facility],[address] [place] [address] 22097 Platelet mean volume (Bld) [Entitic vol] 7.2 fL Normal 6.6 - 10.5 [facility] Comment on above: Result Comment: AUTO MATED DIFFERENTIAL Performed By: #### 2 97210 ####[facility],[address] [place] [address] 37244 RBC 4.00 x 10EE6/UL Low 4.10 - 5.30 [facility] Comment on above: Performed By: #### 2 14881 ####[facility],[address] [place] [address] 68347 WBC 11.1 x 10EE3/UL High 4.5 - 10.8 [facility] Comment on above: Performed By: #### 2 86589 ####[facility],[address] [place] [address] 59872 CHEST 1 VIEWon 10-05-2024 CHEST [address] [facility] CMP with eGFRon 10-05-2024 AGE 69 years Normal [facility] Comment on above: Performed By: #### 2 53722 ####[facility],[address] [place] [address] 21304 Albumin [Mass/Vol] 2.4 g/dL Low 3.4 - 5.0 [facility] Comment on above: Performed By: #### 2 99820 ####[facility],[address] [place] [address] 65516 Albumin/Globulin [Mass ratio] 0.7 {ratio} Low 0.9 - 1.6 [facility] Comment on above: Performed By: #### 2 69285 ####[facility],[address] [place] [address] 69540 ALK PHOS 80 U/L Normal 46 - 116 [facility] Comment on above: Performed By: #### 2 97266 ####[facility],[address] [place] [address] 31662 ALT [Catalytic activity/Vol] 44 U/L Normal 16 - 63 [facility] Comment on above: Performed By: #### 2 68154 ####[facility],[address] [place] [address] 43363 Anion gap [Moles/Vol] 10 mmol/L Normal 10 - 20 [facility] Comment on above: Performed By: #### 2 33869 ####[facility],[address] [place] [address] 50297 AST [Catalytic activity/Vol] 38 U/L Normal 13 - 39 [facility] Comment on above: Performed By: #### 2 19518 ####[facility],[address] [place] [address] 68827 B/C RATIO 29 ratio Normal 0 - 30 [facility] Comment on above: Performed By: #### 2 69852 ####[facility],[address] [place] [address] 56745 Bilirubin [Mass/Vol] 0.3 mg/dL Normal 0.2 - 1.0 [facility] Comment on above: Performed By: #### 2 92296 ####[facility],[address] [place] [address] 77546 Calcium [Mass/Vol] 8.4 mg/dL Low 8.5 - 10.1 [facility] Comment on above: Performed By: #### 2 82706 ####[facility],[address] [place] [address] 96503 Chloride [Moles/Vol] 102 mmol/L Normal 98 - 107 [facility] Comment on above: Performed By: #### 2 91250 ####[facility],[address] [place] [address] 59829 CMP with eGFR Normal [facility] Comment on above: Result Comment: COMP REHENSIVE METABOLIC PANEL Performed By: #### 2 01665 ####[facility],[address] [place], [place] [address] CO2 [Moles/Vol] 29.0 mmol/L Normal 21.0 - 32.0 [facility] Comment on above: Performed By: #### 2 38244 ####[facility],[address] [place] [address] Creatinine [Mass/Vol] 1.22 mg/dL High 0.55 - 1.02 [facility] Comment on above: Performed By: #### 2 95680 ####[facility],[address] [place], [place] [address] eGFR 44 ML/MINUTE Low 60 - 999 [facility] Comment on above: Performed By: #### 2 13160 ####[facility],[address] [place], [place] [id number] eGFR(AA) 53 ML/MINUTE Low 60 - 999 [facility] Comment on above: Result Comment: ACCO RDING TO THE NATIONAL KIDNEY DISEASE EDUCATION PROGRAM(NKDE), A NORMAL eGFRIS A VALUE GREATER THAN OR EQUAL TO 60 ML/MIN/1.73 SQ METERS.CHRONIC KIDNEY DISEASE: <60mL/MIN/1.73 SQ METERSKIDNEY FAILURE: <15mL/MIN/1.73 SQ METERSTHIS TEST SHOULD ONLY BE USED FOR PATIENTS 18 YEARS OF AGE AND OLDER. Performed By: #### 2 72877 ####[facility],[address] [place], [place] [id number] Globulin (S) [Mass/Vol] 3.5 g/dL Normal 1.5 - 3.8 [facility] Comment on above: Performed By: #### 2 31866 ####[facility],[address] [place] [address] 57688 Glucose [Mass/Vol] 154 mg/dL High 74 - 106 [facility] Comment on above: Performed By: #### 2 58384 ####[facility],[address] [place] [address] 10407 Potassium [Moles/Vol] 3.7 mmol/L Normal 3.5 - 5.1 [facility] Comment on above: Performed By: #### 2 51582 ####[facility],[address] [place] [address] 25630 Protein [Mass/Vol] 5.9 g/dL Low 6.4 - 8.2 [facility] Comment on above: Performed By: #### 2 07686 ####[facility],[address] [place] [address] 85697 Sodium [Moles/Vol] 137 mmol/L Normal 136 - 145 [facility] Comment on above: Performed By: #### 2 22761 ####[facility],[address] [place] [address] 83767 Urea nitrogen [Mass/Vol] 35 mg/dL High 7 - 18 [facility] Comment on above: Performed By: #### 2 66081 ####[facility],[address] [place] [address] 39671 BMP with eGFRon 10-04-2024 AGE 69 years Normal [facility] Comment on above: Performed By: #### 2 64627 ####[facility],[address] [place] [address] 14190 Anion gap [Moles/Vol] 9 mmol/L Low 10 - 20 [facility] Comment on above: Performed By: #### 2 16288 ####[facility],[address] [place] [address] 37079 BMP with eGFR Normal [facility] Comment on above: Result Comment: BASI C METABOLIC PANEL Performed By: #### 2 36215 ####[facility],[address] [place] [address] 63702 Calcium [Mass/Vol] 8.3 mg/dL Low 8.5 - 10.1 [facility] Comment on above: Performed By: #### 2 56597 ####[facility],[address] [place] [address] 27190 Chloride [Moles/Vol] 99 mmol/L Normal 98 - 107 [facility] Comment on above: Performed By: #### 2 08154 ####[facility],[address] [place] [address] 50060 CO2 [Moles/Vol] 32.2 mmol/L High 21.0 - 32.0 [facility] Comment on above: Performed By: #### 2 87966 ####[facility],[address] [place] [address] 87139 Creatinine [Mass/Vol] 0.97 mg/dL Normal 0.55 - 1.02 [facility] Comment on above: Performed By: #### 2 53943 ####[facility],[address] [place] [address] 45387 eGFR 57 ML/MINUTE Low 60 - 999 [facility] Comment on above: Performed By: #### 2 68434 ####[facility],[address] [place] [address] 64855 GFR/1.73 sq M.predicted among non-blacks MDRD (S/P/Bld) [Vol rate/Area] mL/min/{1.73_m2} Normal 60 - 999 [facility] Comment on above: Result Comment: ACCO RDING TO THE NATIONAL KIDNEY DISEASE EDUCATION PROGRAM(NKDE), A NORMAL eGFRIS A VALUE GREATER THAN OR EQUAL TO 60 ML/MIN/1.73 SQ METERS.CHRONIC KIDNEY DISEASE: <60mL/MIN/1.73 SQ METERSKIDNEY FAILURE: <15mL/MIN/1.73 SQ METERSTHIS TEST SHOULD ONLY BE USED FOR PATIENTS 18 YEARS OF AGE AND OLDER. Performed By: #### 2 19859 ####[facility],[address] [place] [address] 94749 Glucose [Mass/Vol] 159 mg/dL High 74 - 106 [facility] Comment on above: Performed By: #### 2 92217 ####[facility],[address] [place] [address] 98731 Potassium [Moles/Vol] 3.0 mmol/L Low 3.5 - 5.1 [facility] Comment on above: Performed By: #### 2 31530 ####[facility],[address] [place] [address] 97919 Sodium [Moles/Vol] 137 mmol/L Normal 136 - 145 [facility] Comment on above: Performed By: #### 2 00527 ####[address] [address] Urea nitrogen [Mass/Vol] 21 mg/dL High 7 - 18 [facility] Comment on above: Performed By: #### 2 41483 ####[facility],[address] [place] [address] 87997 CBC + DIFFon 10-04-2024 Baso # 0.03 x10EE3/UL Normal 0.00 - 0.10 [facility] Comment on above: Performed By: #### 2 50828 ####[facility],[address] [place] [address] 12395 Basophils/100 WBC (Bld) 0.3 % Normal 0.0 - 2.0 [facility] Comment on above: Performed By: #### 2 25956 ####[facility],[address] [place] [address] 34937 CBC + DIFF Normal [facility] Comment on above: Result Comment: CBC- COMPLETE BLOOD COUNT Performed By: #### 2 87819 ####[facility],[address] [place] [address] 79673 EO # 0.04 x10EE3/UL Normal 0.00 - 0.50 [facility] Comment on above: Performed By: #### 2 79577 ####[facility],[address] [place] [address] 01439 Eosinophils/100 WBC (Bld) 0.3 % Normal 0.0 - 7.0 [facility] Comment on above: Performed By: #### 2 46777 ####[facility],[address] [place] [address] Erythrocyte distribution width (RBC) [Ratio] 14.2 % Normal 12.0 - 15.6 [facility] Comment on above: Performed By: #### 2 81780 ####[facility],[address] [place] [address] Hematocrit (Bld) [Volume fraction] 36.6 % Normal 34.0 - 46.0 [facility] Comment on above: Performed By: #### 2 69099 ####[facility],[address] [place] [address] Hemoglobin (Bld) [Mass/Vol] 12.1 g/dL Normal 12.0 - 16.0 [facility] Comment on above: Performed By: #### 2 79836 ####[facility],[address] [place] [address] 09250 Lymph # 0.61 x10EE3/UL Low 0.80 - 2.80 [facility] Comment on above: Performed By: #### 2 60526 ####[facility],[address] [place], [place] [address] Lymphocytes/100 WBC (Bld) 4.9 % Low 20.0 - 45.0 [facility] Comment on above: Performed By: #### 2 01513 ####[facility],[address] [place], [place] [address] MANUAL DIFF N/A Normal [facility] Comment on above: Performed By: #### 2 22115 ####[facility],[address] [place] [address] MCH (RBC) [Entitic mass] 31 pg Normal 27 - 33 [facility] Comment on above: Performed By: #### 2 39792 ####[facility],[address] [place] [address] MCHC 33 X10 3 Normal 32 - 36 [facility] Comment on above: Performed By: #### 2 06482 ####[facility],[address] [place] [address] MCV (RBC) [Entitic vol] 92 fL Normal 80 - 99 [facility] Comment on above: Performed By: #### 2 26178 ####[facility],[address] [place] [address] Cloud # 0.19 x10EE3/UL Low 0.20 - 1.00 [facility] Comment on above: Performed By: #### 2 48212 ####[facility],[address] [place] [address] MONOS % 1.5 % Normal 0.0 - 10.0 [facility] Comment on above: Performed By: #### 2 31595 ####[facility],[address] [place] [address] Morphology Dandy (Bld) [Interp] N/A Normal [facility] Comment on above: Performed By: #### 2 91894 ####[facility],[address] [place] [address] Neut # 11.58 x10EE3/UL High 1.50 - 7.10 [facility] Comment on above: Performed By: #### 2 43180 ####[facility],[address] [place] [address] Neutrophils/100 WBC (Bld) 93.0 % High 46.0 - 76.0 [facility] Comment on above: Performed By: #### 2 28335 ####[facility],[address] [place] [address] 00685 PLATELET 379 x10EE3/UL Normal 150 - 450 [facility] Comment on above: Performed By: #### 2 01659 ####[facility],[address] [place] [address] 67732 Platelet mean volume (Bld) [Entitic vol] 7.0 fL Normal 6.6 - 10.5 [facility] Comment on above: Result Comment: AUTO MATED DIFFERENTIAL Performed By: #### 2 66446 ####[facility],[address] [place] [address] 13499 RBC 3.98 x 10EE6/UL Low 4.10 - 5.30 [facility] Comment on above: Performed By: #### 2 88844 ####[facility],[address] [place] [address] 22920 WBC 12.5 x 10EE3/UL High 4.5 - 10.8 [facility] Comment on above: Performed By: #### 2 03147 ####[facility],[address] [place] [address]642 ED MED ADMINISTRATION DETAIL on 10-04-2024 ED MED ADMINISTRATION DETAIL Normal [facility] ED NURSES CLINICAL NOTEon ED NURSES CLINICAL NOTE Normal [facility] ED ORDER SHEET (CPOE ONLY)on 10-04-2024 ED ORDER SHEET (CPOE ONLY) Normal [facility] ED PHYSICIAN CLINICAL REPORT on 10-04-2024 ED PHYSICIAN CLINICAL REPORT Normal [facility] ED PHYSICIAN DISCHARGE REPOR Ton 10-04-2024 ED PHYSICIAN DISCHARGE REPORT Normal [facility] ED SUPER BILLon 10-04-2024 ED SUPER BILL Normal [facility] ED VISIT SUMMARYon ED VISIT SUMMARY Normal [facility] ED VITALS FLOW SHEETon 10-04 ED VITALS FLOW SHEET Normal [facility] CBC + DIFFon 10-03-2024 Baso # 0.06 x10EE3/UL Normal 0.00 - 0.10 [facility] Comment on above: Performed By: #### 2 91410 ####[facility],[address] [place] [address] Basophils/100 WBC (Bld) 0.5 % Normal 0.0 - 2.0 [facility] Comment on above: Performed By: #### 2 10695 ####[facility],[address] [place] [address] CBC + DIFF Normal [facility] Comment on above: Result Comment: CBC- COMPLETE BLOOD COUNT Performed By: #### 2 43000 ####[place] [address] EO # 0.29 x10EE3/UL Normal 0.00 - 0.50 [facility] Comment on above: Performed By: #### 2 01836 ####[facility],[address] [place] [address] Eosinophils/100 WBC (Bld) 2.1 % Normal 0.0 - 7.0 [facility] Comment on above: Performed By: #### 2 61743 ####[place] [address] Erythrocyte distribution width (RBC) [Ratio] 14.1 % Normal 12.0 - 15.6 [facility] Comment on above: Performed By: #### 2 89456 ####[facility],[address] [place] [address] Hematocrit (Bld) [Volume fraction] 41.7 % Normal 34.0 - 46.0 [facility] Comment on above: Performed By: #### 2 37520 ####[facility],[address] [place] [address] Hemoglobin (Bld) [Mass/Vol] 13.8 g/dL Normal 12.0 - 16.0 [facility] Comment on above: Performed By: #### 2 47186 ####[facility],[address] [place] [address] Lymph # 5.71 x10EE3/UL High 0.80 - 2.80 [facility] Comment on above: Performed By: #### 2 35140 ####[facility],[address] [place] [address] Lymphocytes/100 WBC (Bld) 41.9 % Normal 20.0 - 45.0 [facility] Comment on above: Performed By: #### 2 41908 ####[facility],[address] [place] [address] MANUAL DIFF N/A Normal [facility] Comment on above: Performed By: #### 2 15604 ####[facility],[address] [place] [address] MCH (RBC) [Entitic mass] 30 pg Normal 27 - 33 [facility] Comment on above: Performed By: #### 2 40885 ####[facility],[address] [place] [address] MCHC 33 X10 3 Normal 32 - 36 [facility] Comment on above: Performed By: #### 2 74556 ####[facility],[address] [place] [address] MCV (RBC) [Entitic vol] 91 fL Normal 80 - 99 [facility] Comment on above: Performed By: #### 2 10206 ####[facility],[address] [place] [address] Cloud # 1.18 x10EE3/UL High 0.20 - 1.00 [facility] Comment on above: Performed By: #### 2 46045 ####[facility],[address] [place] [address] MONOS % 8.6 % Normal 0.0 - 10.0 [facility] Comment on above: Performed By: #### 2 20061 ####[facility],[address] [place] [address] Morphology Dandy (Bld) [Interp] N/A Normal [facility] Comment on above: Performed By: #### 2 03232 ####[facility],[address] [place] [address] 09821 Neut # 6.39 x10EE3/UL Normal 1.50 - 7.10 [facility] Comment on above: Performed By: #### 2 86437 ####[facility],[address] [place] [address] Neutrophils/100 WBC (Bld) 46.9 % Normal 46.0 - 76.0 [facility] Comment on above: Performed By: #### 2 46169 ####[facility],[address] [place] [address] PLATELET 475 x10EE3/UL High 150 - 450 [facility] Comment on above: Performed By: #### 2 84621 ####[facility],[address] [place] [address] Platelet mean volume (Bld) [Entitic vol] 7.4 fL Normal 6.6 - 10.5 [facility] Comment on above: Result Comment: AUTO MATED DIFFERENTIAL Performed By: #### 2 51043 ####[facility],[address] [place] [address] 20074 RBC 4.58 x 10EE6/UL Normal 4.10 - 5.30 [facility] Comment on above: Performed By: #### 2 29912 ####[facility],[address] [place] [address] 25274 WBC 13.6 x 10EE3/UL High 4.5 - 10.8 [facility] Comment on above: Performed By: #### 2 31949 ####[facility],[address] [place], [place] [address] CHEST 1 VIEWon 10-03-2024 CHEST [address] [facility] CMP with eGFRon 10-03-2024 AGE 69 years Normal [facility] Comment on above: Performed By: #### 2 23701 ####[facility],[address] [place] [address] 63881 Albumin [Mass/Vol] 3.1 g/dL Low 3.4 - 5.0 [facility] Comment on above: Performed By: #### 2 89520 ####[facility],[address] [place] [address] 27824 Albumin/Globulin [Mass ratio] 0.7 {ratio} Low 0.9 - 1.6 [facility] Comment on above: Performed By: #### 2 96947 ####[facility],[address] [place] [address] 57646 ALK PHOS 124 U/L High 46 - 116 [facility] Comment on above: Performed By: #### 2 75419 ####[facility],[address] [place] [address] 49919 ALT [Catalytic activity/Vol] 90 U/L High 16 - 63 [facility] Comment on above: Performed By: #### 2 75833 ####[facility],[address] [place] [address] 14562 Anion gap [Moles/Vol] 13 mmol/L Normal 10 - 20 [facility] Comment on above: Performed By: #### 2 11292 ####[facility],[address] [place] [address] 20019 AST [Catalytic activity/Vol] 126 U/L High 13 - 39 [facility] Comment on above: Performed By: #### 2 16490 ####[facility],[address] [place] [address] 03208 B/C RATIO 15 ratio Normal 0 - 30 [facility] Comment on above: Performed By: #### 2 69256 ####[facility],[address] [place] [address] 26143 Bilirubin [Mass/Vol] 0.5 mg/dL Normal 0.2 - 1.0 [facility] Comment on above: Performed By: #### 2 79834 ####[facility],[address] [place] [address] 46123 Calcium [Mass/Vol] 8.6 mg/dL Normal 8.5 - 10.1 [facility] Comment on above: Performed By: #### 2 07246 ####[facility],[address] [place] [address] 00083 Chloride [Moles/Vol] 97 mmol/L Low 98 - 107 [facility] Comment on above: Performed By: #### 2 97372 ####[facility],[address] [place] [address] 99112 CMP with eGFR Normal [facility] Comment on above: Result Comment: COMP REHENSIVE METABOLIC PANEL Performed By: #### 2 76143 ####[facility],[address] [place] [address] 16776 CO2 [Moles/Vol] 30.3 mmol/L Normal 21.0 - 32.0 [facility] Comment on above: Performed By: #### 2 01329 ####[facility],[address] [place] [address] 18772 Creatinine [Mass/Vol] 1.33 mg/dL High 0.55 - 1.02 [facility] Comment on above: Performed By: #### 2 12663 ####[facility],[address] [place] [address] 75548 eGFR 39 ML/MINUTE Low 60 - 999 [facility] Comment on above: Performed By: #### 2 77133 ####[facility],[address] [place] [address] 66544 eGFR(AA) 48 ML/MINUTE Low 60 - 999 [facility] Comment on above: Result Comment: ACCO RDING TO THE NATIONAL KIDNEY DISEASE EDUCATION PROGRAM(NKDE), A NORMAL eGFRIS A VALUE GREATER THAN OR EQUAL TO 60 ML/MIN/1.73 SQ METERS.CHRONIC KIDNEY DISEASE: <60mL/MIN/1.73 SQ METERSKIDNEY FAILURE: <15mL/MIN/1.73 SQ METERSTHIS TEST SHOULD ONLY BE USED FOR PATIENTS 18 YEARS OF AGE AND OLDER. Performed By: #### 2 19029 ####[facility],[address] [place] [address] 36340 Globulin (S) [Mass/Vol] 4.7 g/dL High 1.5 - 3.8 [facility] Comment on above: Performed By: #### 2 22071 ####[facility],[address] [place] [address] 90111 Glucose [Mass/Vol] 271 mg/dL High 74 - 106 [facility] Comment on above: Performed By: #### 2 60856 ####[facility],[address] [place] [address] 24973 Potassium [Moles/Vol] 3.1 mmol/L Low 3.5 - 5.1 [facility] Comment on above: Performed By: #### 2 50550 ####[facility],[address] [place] [address] 09367 Protein [Mass/Vol] 7.8 g/dL Normal 6.4 - 8.2 [facility] Comment on above: Performed By: #### 2 84808 ####[facility],[address] [place] [address] 13607 Sodium [Moles/Vol] 137 mmol/L Normal 136 - 145 [facility] Comment on above: Performed By: #### 2 67199 ####[facility],[address] [place] [address] 67421 Urea nitrogen [Mass/Vol] 20 mg/dL High 7 - 18 [facility] Comment on above: Performed By: #### 2 48515 ####[facility],[address] [place] [address] 31807 MYCOon 09-08-2023 Mycoplasma IgG equiv Normal [facility] ([place]) Comment on above: Result Comment: INTE RPRETATION OF MYCOPLASMA IgG BY EIA: Negative: No detectable M. pneumoniae IgG antibody. Positive: Mycoplasma pneumoniae IgG antibody Detected. Equivocal: Equivocal for IgG antibodies to Mycoplasma pneumoniae. Suggest repeat testing in 10-14 days. Performed By: #### P HOS, TROPHS, MG, CBC, ADIFF, ANEU, MYCO, CMP, CAION, GFR ####[address] [address] .Auto Diffon 09-06-2023 Basophil, Absolute 0.1 10 3/mcL Normal 0.0-0.3 [facility] ([place]) Comment on above: Performed By: #### A DIFF, MG, ANEU, GFR, CBC, BMP ####[address] [address] Basophils/100 WBC (Bld) 1.5 % Normal 0.0-2.5 [facility] ([place]) Comment on above: Performed By: #### A DIFF, MG, ANEU, GFR, CBC, BMP ####[address] [address] Eosinophil, Absolute 0.4 10 3/mcL Normal 0.0-0.7 [facility] ([place]) Comment on above: Performed By: #### A DIFF, MG, ANEU, GFR, CBC, BMP ####[place] [address] Eosinophils/100 WBC (Bld) 5.4 % Normal 0.0-6.0 [facility] ([place]) Comment on above: Performed By: #### A DIFF, MG, ANEU, GFR, CBC, BMP ####[address] [address] Lymphocyte, Absolute 2.0 10 3/mcL Normal 0.9-4.3 [facility] ([place]) Comment on above: Performed By: #### A DIFF, MG, ANEU, GFR, CBC, BMP ####[address] [address] Lymphocytes/100 WBC (Bld) 27.7 % Normal 20.0-40.0 [facility] ([place]) Comment on above: Performed By: #### A DIFF, MG, ANEU, GFR, CBC, BMP ####[address] [address] Monocyte, Absolute 0.9 10 3/mcL Normal 0.1-1.4 [facility] ([place] Comment on above: Performed By: #### A DIFF, MG, ANEU, GFR, CBC, BMP ####[address] [address] Monocytes/100 WBC (Bld) 13.0 % Normal 2.0-13.0 [facility] ([place]) Comment on above: Performed By: #### A DIFF, MG, ANEU, GFR, CBC, BMP ####[address] [address] Neutrophils/100 WBC (Bld) 52.4 % Normal 50.0-75.0 [facility] ([place]) Comment on above: Performed By: #### A DIFF, MG, ANEU, GFR, CBC, BMP ####[address] [address] .GFRon 09-06-2023 GFR Non- >60 Normal [facility] ([place]) Comment on above: Result Comment: GFR Population [...] A DIFF, MG, ANEU, GFR, CBC, BMP ####[address] [address] GFR >60 Normal [facility] ([place]) Comment on above: Result Comment: GFR Population [...] A DIFF, MG, ANEU, GFR, CBC, BMP ####[address] [address] .NEUABSon 09-06-2023 Neutrophil, Absolute 3.7 10 3/mcL Normal 2.3-8.1 [facility] ([place]) Comment on above: Performed By: #### A DIFF, MG, ANEU, GFR, CBC, BMP ####[place] [address] BMPon 09-06-2023 BUN/Creatinine Ratio 22.5 ratio High 10.0-22.0 [facility] ([place]) Comment on above: Performed By: #### A DIFF, MG, ANEU, GFR, CBC, BMP ####[place] [address] Calcium [Mass/Vol] 8.7 mg/dL Normal 8.7-10.4 [facility] ([place]) Comment on above: Performed By: #### A DIFF, MG, ANEU, GFR, CBC, BMP ####[address] [address] Chloride [Moles/Vol] 101 mmol/L Normal 98-110 [facility] ([place]) Comment on above: Performed By: #### A DIFF, MG, ANEU, GFR, CBC, BMP ####[address] [address] CO2 [Moles/Vol] 33 mmol/L High 22-32 [facility] ([place]) Comment on above: Performed By: #### A DIFF, MG, ANEU, GFR, CBC, BMP ####[address] [address] Creatinine [Mass/Vol] 0.89 mg/dL Normal 0.50-1.20 [facility] ([place]) Comment on above: Performed By: #### A DIFF, MG, ANEU, GFR, CBC, BMP ####[place] [address] Electrolyte Balance 3.0 mEq/L Low 4.0-15.0 [facility] ([place]) Comment on above: Performed By: #### A DIFF, MG, ANEU, GFR, CBC, BMP ####[place] [address] Glucose [Mass/Vol] 100 mg/dL Normal 82-115 [facility] ([place]) Comment on above: Performed By: #### A DIFF, MG, ANEU, GFR, CBC, BMP ####[place] [address] Potassium [Moles/Vol] 3.9 mmol/L Normal 3.5-5.0 [facility] ([place]) Comment on above: Performed By: #### A DIFF, MG, ANEU, GFR, CBC, BMP ####[place] [address] Sodium [Moles/Vol] 137 mmol/L Normal 136-145 [facility] ([place]) Comment on above: Performed By: #### A DIFF, MG, ANEU, GFR, CBC, BMP ####[place] [address] Urea nitrogen [Mass/Vol] 20.0 mg/dL Normal 8.0-22.0 [facility] ([place]) Comment on above: Performed By: #### A DIFF, MG, ANEU, GFR, CBC, BMP ####[place] [address] CBCon 09-06-2023 Erythrocyte distribution width (RBC) [Ratio] 13.7 % Normal 11.5-15.5 [facility] ([place]) Comment on above: Performed By: #### A DIFF, MG, ANEU, GFR, CBC, BMP ####[place] [address] Hematocrit (Bld) [Volume fraction] 39.7 % Normal 34.0-46.0 [facility] ([place]) Comment on above: Performed By: #### A DIFF, MG, ANEU, GFR, CBC, BMP ####[place] [address] Hgb 13.5 G/dL Normal 12.0-16.0 [facility] ([place]) Comment on above: Performed By: #### A DIFF, MG, ANEU, GFR, CBC, BMP ####[place] [address] MCH (RBC) [Entitic mass] 30.9 pg Normal 27.0-33.0 [facility] ([place]) Comment on above: Performed By: #### A DIFF, MG, ANEU, GFR, CBC, BMP ####[place] [address] MCHC 34.0 G/dL Normal 32.0-36.0 [facility] ([place]) Comment on above: Performed By: #### A DIFF, MG, ANEU, GFR, CBC, BMP ####[place] [address] MCV (RBC) [Entitic vol] 90.9 fL Normal 80.0-99.0 [facility] ([place]) Comment on above: Performed By: #### A DIFF, MG, ANEU, GFR, CBC, BMP ####[place] [address] Platelet 299 10 3/mcL Normal 150-450 [facility] ([place]) Comment on above: Performed By: #### A DIFF, MG, ANEU, GFR, CBC, BMP ####[place] [address] Platelet mean volume (Bld) [Entitic vol] 7.8 fL Normal 6.6-10.5 [facility] ([place]) Comment on above: Performed By: #### A DIFF, MG, ANEU, GFR, CBC, BMP ####[place] [address] RBC 4.37 10 6/mcL Normal 4.10-5.30 [facility] ([place]) Comment on above: Performed By: #### A DIFF, MG, ANEU, GFR, CBC, BMP ####[facility] [place] [address]263 WBC 7.1 10 3/mcL Normal 4.5-10.8 [facility] ([place]) Comment on above: Performed By: #### A DIFF, MG, ANEU, GFR, CBC, BMP ####[place] [address] [place] [address]657 LABORATORYOrdered By: SYSTEM SYSTEM on 09-06-2023 Basophils [...] 09-06-2023 Magnesium [Mass/Vol] 2.0 mg/dL Normal 1.6-2.4 [facility] ([place]) Comment on above: Performed By: #### A DIFF, MG, ANEU, GFR, CBC, BMP ####[facility] [place] [address] 11579 .Auto Diffon 09-05-2023 Basophil, Absolute 0.2 10 3/mcL Normal 0.0-0.3 [facility] ([place]) Comment on above: Performed By: #### B G #### [facility] [address] [place] [address]66 Basophils/100 WBC (Bld) 2.9 % High 0.0-2.5 [facility] ([place]) Comment on above: Performed By: #### B G #### [address] [address] Eosinophil, Absolute 0.2 10 3/mcL Normal 0.0-0.7 [facility] ([place]) Comment on above: Performed By: #### B G #### [address] [address] Eosinophils/100 WBC (Bld) 2.1 % Normal 0.0-6.0 [facility] ([place]) Comment on above: Performed By: #### B G #### [address] [address] Lymphocyte, Absolute 1.8 10 3/mcL Normal 0.9-4.3 [facility] ([place]) Comment on above: Performed By: #### B G #### [address] [address] Lymphocytes/100 WBC (Bld) 25.1 % Normal 20.0-40.0 [facility] ([place]) Comment on above: Performed By: #### B G #### [address] [address] Monocyte, Absolute 1.0 10 3/mcL Normal 0.1-1.4 [facility] ([place]) Comment on above: Performed By: #### B G #### [address] [address] Monocytes/100 WBC (Bld) 13.7 % High 2.0-13.0 [facility] ([place]) Comment on above: Performed By: #### B G #### [address] [address] Neutrophils/100 WBC (Bld) 56.2 % Normal 50.0-75.0 [facility] ([place]) Comment on above: Performed By: #### B G #### [address] [address] .GFRon 09-05-2023 GFR >60 Normal [facility] ([place]) Comment on above: Result Comment: [...] B MP, GFR, ANEU, CBC, MG, ADIFF ####[place] [address] [place] [address] 51692 GFR Non- >60 Normal [facility] ([place]) Comment on above: Result Comment: GFR Population [...] B MP, GFR, ANEU, CBC, MG, ADIFF ####[address] [address] .NEUABSon 09-05-2023 Neutrophil, Absolute 3.9 10 3/mcL Normal 2.3-8.1 [facility] ([place]) Comment on above: Performed By: #### B G #### [address] [address] BMPon 09-05-2023 BUN/Creatinine Ratio 20.2 ratio Normal 10.0-22.0 [facility] ([place]) Comment on above: Performed By: #### B G #### [address] [address] Calcium [Mass/Vol] 8.7 mg/dL Normal 8.7-10.4 [facility] ([place]) Comment on above: Performed By: #### B G #### [address] [address] Chloride [Moles/Vol] 101 mmol/L Normal 98-110 [facility] ([place]) Comment on above: Performed By: #### B G #### [address] [address] CO2 [Moles/Vol] 29 mmol/L Normal 22-32 [facility] ([place]) Comment on above: Performed By: #### B G #### [address] [address] Creatinine [Mass/Vol] 0.89 mg/dL Normal 0.50-1.20 [facility] ([place]) Comment on above: Performed By: #### B G #### [address] [address] Electrolyte Balance 6.0 mEq/L Normal 4.0-15.0 [facility] ([place]) Comment on above: Performed By: #### B G #### [address] [address] Glucose [Mass/Vol] 87 mg/dL Normal 82-115 [facility] ([place]) Comment on above: Performed By: #### B G #### [address] [address] [address] Potassium [Moles/Vol] 3.6 mmol/L Normal 3.5-5.0 [facility] ([place]) Comment on above: Performed By: #### B G #### [address] [address] Sodium [Moles/Vol] 136 mmol/L Normal 136-145 [facility] ([place]) Comment on above: Performed By: #### B G #### [address] [address] Urea nitrogen [Mass/Vol] 18.0 mg/dL Normal 8.0-22.0 [facility] ([place]) Comment on above: Performed By: #### B G #### [address] [address] CBCon 09-05-2023 Erythrocyte distribution width (RBC) [Ratio] 13.9 % Normal 11.5-15.5 [facility] ([place]) Comment on above: Performed By: #### B G #### [place] [id number] Hematocrit (Bld) [Volume fraction] 36.4 % Normal 34.0-46.0 [facility] ([place]) Comment on above: Performed By: #### B G #### [place] [id number] Hgb 12.3 G/dL Normal 12.0-16.0 [facility] ([place]) Comment on above: Performed By: #### B G #### [place] [id number] MCH (RBC) [Entitic mass] 30.7 pg Normal 27.0-33.0 [facility] ([place]) Comment on above: Performed By: #### B G #### [place] [address] MCHC 33.7 G/dL Normal 32.0-36.0 [facility] ([place]) Comment on above: Performed By: #### B G #### [place] [id number] MCV (RBC) [Entitic vol] 91.1 fL Normal 80.0-99.0 [facility] ([place]) Comment on above: Performed By: #### B G #### [place] [id number] Platelet 278 10 3/mcL Normal 150-450 [facility] ([place]) Comment on above: Performed By: #### B G #### [place] [id number] Platelet mean volume (Bld) [Entitic vol] 7.5 fL Normal 6.6-10.5 [facility] ([place]) Comment on above: Performed By: #### B G #### [place] [id number] RBC 4.00 10 6/mcL Low 4.10-5.30 [facility] ([place]) Comment on above: Performed By: #### B G #### [facility] [address] [place] [address] WBC 7.0 10 3/mcL Normal 4.5-10.8 [facility] ([place]) Comment on above: Performed By: #### B G #### [facility] [address] [place] [address] LABORATORYOrdered By: Horace Valdez on 09-05-2023 Blood Glucose Testing Reason Routine (09/05/23 7:27 AM) [facility] Glucose [Mass/Vol] 119 mg/dL High 82 - 115 mg/dL [facility] LABORATORYOrdered By: SYSTEM SYSTEM on 09-05-2023 [...] 09-05-2023 Magnesium [Mass/Vol] 2.2 mg/dL Normal 1.6-2.4 [facility] ([place]) Comment on above: Performed By: #### B MP, GFR, ANEU, CBC, MG, ADIFF ####[place] [address] .Auto Diffon 09-04-2023 Basophil, Absolute 0.1 10 3/mcL Normal 0.0-0.3 [facility] ([place]) Comment on above: Performed By: #### C MP, GFR, CBC, ANEU, ADIFF ####[address] [address] Basophils/100 WBC (Bld) 1.3 % Normal 0.0-2.5 [facility] ([place]) Comment on above: Performed By: #### C MP, GFR, CBC, ANEU, ADIFF ####[address] [address] Eosinophil, Absolute 0.1 10 3/mcL Normal 0.0-0.7 [facility] ([place]) Comment on above: Performed By: #### C MP, GFR, CBC, ANEU, ADIFF ####[address] [address] Eosinophils/100 WBC (Bld) 1.0 % Normal 0.0-6.0 [facility] ([place]) Comment on above: Performed By: #### C MP, GFR, CBC, ANEU, ADIFF ####[address] [address] Lymphocyte, Absolute 1.9 10 3/mcL Normal 0.9-4.3 [facility] ([place]) Comment on above: Performed By: #### C MP, GFR, CBC, ANEU, ADIFF ####[address] [address] Lymphocytes/100 WBC (Bld) 23.0 % Normal 20.0-40.0 [facility] ([place]) Comment on above: Performed By: #### C MP, GFR, CBC, ANEU, ADIFF ####[address] [address] Monocyte, Absolute 1.0 10 3/mcL Normal 0.1-1.4 [facility] ([place]) Comment on above: Performed By: #### C MP, GFR, CBC, ANEU, ADIFF ####[address] [address] Monocytes/100 WBC (Bld) 11.5 % Normal 2.0-13.0 [facility] ([place]) Comment on above: Performed By: #### C MP, GFR, CBC, ANEU, ADIFF ####[address] [address] Neutrophils/100 WBC (Bld) 63.2 % Normal 50.0-75.0 [facility] ([place]) Comment on above: Performed By: #### C MP, GFR, CBC, ANEU, ADIFF ####[address] [address] .GFRon 09-04-2023 GFR >60 Normal [facility] ([place]) Comment on above: Result Comment: GFR Population [...] #### C MP, GFR, CBC, ANEU, ADIFF ####[address] [address] GFR Non- >60 Normal [facility] ([place]) Comment on above: Result Comment: GFR Population [...] #### C MP, GFR, CBC, ANEU, ADIFF ####[address] [address] .NEUABSon 09-04-2023 Neutrophil, Absolute 5.3 10 3/mcL Normal 2.3-8.1 [facility]) Comment on above: Performed By: #### C MP, GFR, CBC, ANEU, ADIFF ####[address] [address] APTTon 09-04-2023 aPTT Coag (Bld) [Time] 27.4 s Normal 25.0-35.0 [facility] ([place]) Comment on above: Result Comment: For Heparin anticoagulation therapy, the recommended therapeutic range is: 54-77 seconds (APTT Correlation with Anti-Xa therapeutic range of 0.3-0.7 units/ml). PLEASE REFERENCE THE PHARMACY PROTOCOL FOR DOSING. Heparin dose (APTT) Unknown Normal [facility] ([place]) aPTT Coag (Bld) [Time] 46.1 s High 25.0-35.0 [facility] ([place]) Comment on above: Result Comment: For Heparin anticoagulation therapy, the recommended therapeutic range is: 54-77 seconds (APTT Correlation with Anti-Xa therapeutic range of 0.3-0.7 units/ml). PLEASE REFERENCE THE PHARMACY PROTOCOL FOR DOSING. Heparin dose (APTT) Heparin IV Normal [facility] ([place]) aPTT Coag (Bld) [Time] 41.1 s High 25.0-35.0 [facility] ([place]) Comment on above: Result Comment: For Heparin anticoagulation therapy, the recommended therapeutic range is: 54-77 seconds (APTT Correlation with Anti-Xa therapeutic range of 0.3-0.7 units/ml). PLEASE REFERENCE THE PHARMACY PROTOCOL FOR DOSING. Heparin dose (APTT) Heparin IV Normal [facility] ([place]) CBCon 09-04-2023 Erythrocyte distribution width (RBC) [Ratio] 14.0 % Normal 11.5-15.5 [facility] ([place]) Comment on above: Performed By: #### C MP, GFR, CBC, ANEU, ADIFF ####[address] [address] Hematocrit (Bld) [Volume fraction] 37.8 % Normal 34.0-46.0 [facility] ([place]) Comment on above: Performed By: #### C MP, GFR, CBC, ANEU, ADIFF ####[place] [address] Hgb 12.8 G/dL Normal 12.0-16.0 [facility] ([place]) Comment on above: Performed By: #### C MP, GFR, CBC, ANEU, ADIFF ####[place] [address] MCH (RBC) [Entitic mass] 30.7 pg Normal 27.0-33.0 [facility] ([place]) Comment on above: Performed By: #### C MP, GFR, CBC, ANEU, ADIFF ####[place] [address] MCHC 33.9 G/dL Normal 32.0-36.0 [facility] ([place]) Comment on above: Performed By: #### C MP, GFR, CBC, ANEU, ADIFF ####[place] [address] MCV (RBC) [Entitic vol] 90.6 fL Normal 80.0-99.0 [facility] ([place]) Comment on above: Performed By: #### C MP, GFR, CBC, ANEU, ADIFF ####[place] [address] Platelet 281 10 3/mcL Normal 150-450 [facility] ([place]) Comment on above: Performed By: #### C MP, GFR, CBC, ANEU, ADIFF ####[place] [address] Platelet mean volume (Bld) [Entitic vol] 7.6 fL Normal 6.6-10.5 [facility] ([place]) Comment on above: Performed By: #### C MP, GFR, CBC, ANEU, ADIFF ####[place] [address] RBC 4.17 10 6/mcL Normal 4.10-5.30 [facility] ([place]) Comment on above: Performed By: #### C MP, GFR, CBC, ANEU, ADIFF ####[address] [address] WBC 8.5 10 3/mcL Normal 4.5-10.8 [facility] ([place]) Comment on above: Performed By: #### C MP, GFR, CBC, ANEU, ADIFF ####[address] [address] CMPon 09-04-2023 Albumin Level 3.3 G/dL Normal 3.2-4.8 [facility] ([place]) Comment on above: Performed By: #### C MP, GFR, CBC, ANEU, ADIFF ####[place] [address] Albumin/Globulin [Mass ratio] 1.0 {ratio} Normal 0.9-1.6 [facility] ([place]) Comment on above: Performed By: #### C MP, GFR, CBC, ANEU, ADIFF ####[place] [address] ALP [Catalytic activity/Vol] 95 U/L Normal 38-126 [facility] ([place]) Comment on above: Performed By: #### C MP, GFR, CBC, ANEU, ADIFF ####[place] [address] ALT [Catalytic activity/Vol] 103 U/L High 10-49 [facility] ([place]) Comment on above: Performed By: #### C MP, GFR, CBC, ANEU, ADIFF ####[place] [address] AST [Catalytic activity/Vol] 64 U/L High 8-34 [facility] ([place]) Comment on above: Performed By: #### C MP, GFR, CBC, ANEU, ADIFF ####[place] [address] Bili Total 1.00 mg/dL Normal 0.20-1.20 [facility] ([place]) Comment on above: Result Comment: Use of this assay is not recommended for patients undergoing treatment with eltrombopag due to the potential for falsely elevated results. Performed By: #### C MP, GFR, CBC, ANEU, ADIFF ####[place] [address] BUN/Creatinine Ratio 23.1 ratio High 10.0-22.0 [facility] ([place]) Comment on above: Performed By: #### C MP, GFR, CBC, ANEU, ADIFF ####[address] [address] Calcium [Mass/Vol] 9.0 mg/dL Normal 8.7-10.4 [facility] ([place]) Comment on above: Performed By: #### C MP, GFR, CBC, ANEU, ADIFF ####[place] [address] Chloride [Moles/Vol] 100 mmol/L Normal 98-110 [facility] ([place]) Comment on above: Performed By: #### C MP, GFR, CBC, ANEU, ADIFF ####[place] [id number] CO2 [Moles/Vol] 30 mmol/L Normal 22-32 [facility] ([place]) Comment on above: Performed By: #### C MP, GFR, CBC, ANEU, ADIFF ####[place] [address] Creatinine [Mass/Vol] 0.78 mg/dL Normal 0.50-1.20 [facility] ([place]) Comment on above: Performed By: #### C MP, GFR, CBC, ANEU, ADIFF ####[place] [address] Electrolyte Balance 3.0 mEq/L Low 4.0-15.0 [facility] ([place]) Comment on above: Performed By: #### C MP, GFR, CBC, ANEU, ADIFF ####[place] [id number] Globulin 3.4 G/dL Normal 1.5-3.8 [facility] ([place]) Comment on above: Performed By: #### C MP, GFR, CBC, ANEU, ADIFF ####[place] [address] Glucose [Mass/Vol] 134 mg/dL High 82-115 [facility] ([place]) Comment on above: Performed By: #### C MP, GFR, CBC, ANEU, ADIFF ####[place] [address] [place] [address] Potassium [Moles/Vol] 3.1 mmol/L Low 3.5-5.0 [facility] ([place]) Comment on above: Performed By: #### C MP, GFR, CBC, ANEU, ADIFF ####[address] [address] Sodium [Moles/Vol] 133 mmol/L Low 136-145 [facility] ([place]) Comment on above: Performed By: #### C MP, GFR, CBC, ANEU, ADIFF ####[address] [address] Total Protein 6.7 G/dL Normal 5.7-8.2 [facility] ([place]) Comment on above: Result Comment: No te - New Reference Range in effect 20 Performed By: #### C MP, GFR, CBC, ANEU, ADIFF ####[address] [address] Urea nitrogen [Mass/Vol] 18.0 mg/dL Normal 8.0-22.0 [facility] ([place]) Comment on above: Performed By: #### C MP, GFR, CBC, ANEU, ADIFF ####[address] [address] LABORATORYOrdered By: Pee Cerna on 09-04-2023 Blood Glucose Testing Reason Routine (09/04/23 9:00 PM) [facility] Glucose [Mass/Vol] 98 mg/dL Normal 82 - 115 mg/dL [facility] LABORATORYOrdered By: Carolynn Weston on 09-04-2023 [...] Glucose Testing Reason Routine (09/04/23 4:19 PM) [facility] Glucose [Mass/Vol] 97 mg/dL Normal 82 - 115 mg/dL [facility] LABORATORYOrdered By: SYSTEM SYSTEM on 09-04-2023 [...] (S/P/Bld) [Vol rate/Area] ml/min/1.73sqm Invalid Interpretation Code [facility] Comment on above: Interpretive Data: GFR [...] (S/P/Bld) [Vol rate/Area] ml/min/1.73sqm Invalid Interpretation Code [facility] Comment on above: Interpretive Data: GFR [...] 3.4 G/dL Normal 1.5 - 3.8 G/dL [facility] Glucose [Mass/Vol] 134 mg/dL High 82 - [...] IV (09/04/23 1:16 AM) [facility] Mycoplasma IgM Negative Normal [facility] ([place]) Comment on above: Result Comment: INTE RPRETATION [...] CBC, ADIFF, ANEU, MYCO, CMP, CAION, GFR ####[address] [address] XR CHEST 1 VIEWon 09-04-2023 XR CHEST [...] 09/04/2023 6:42:09 AM Ordering Provider: FEDERICA Soto [facility] ([place]) .Auto Diffon 09-03-2023 Basophil, Absolute 0.1 10 3/mcL Normal 0.0-0.3 [facility] ([place]) Comment on above: Performed By: #### T ROPHS, MG, LAC, GFR, CBC, CMP, ADIFF, ANEU ####[address] [address] Basophils/100 WBC (Bld) 0.6 % Normal 0.0-2.5 [facility] ([place]) Comment on above: Performed By: #### T ROPHS, MG, LAC, GFR, CBC, CMP, ADIFF, ANEU ####[address] [address] Eosinophil, Absolute 0.0 10 3/mcL Normal 0.0-0.7 [facility] ([place]) Comment on above: Performed By: #### T ROPHS, MG, LAC, GFR, CBC, CMP, ADIFF, ANEU ####[address] [address] Eosinophils/100 WBC (Bld) 0.2 % Normal 0.0-6.0 [facility] ([place]) Comment on above: Performed By: #### T ROPHS, MG, LAC, GFR, CBC, CMP, ADIFF, ANEU ####[address] [address] Lymphocyte, Absolute 2.0 10 3/mcL Normal 0.9-4.3 [facility] ([place]) Comment on above: Performed By: #### T ROPHS, MG, LAC, GFR, CBC, CMP, ADIFF, ANEU ####[address] [address] Lymphocytes/100 WBC (Bld) 20.9 % Normal 20.0-40.0 [facility] ([place]) Comment on above: Performed By: #### T ROPHS, MG, LAC, GFR, CBC, CMP, ADIFF, ANEU ####[address] [address] Monocyte, Absolute 1.1 10 3/mcL Normal 0.1-1.4 [facility] ([place]) Comment on above: Performed By: #### T ROPHS, MG, LAC, GFR, CBC, CMP, ADIFF, ANEU ####[address] [address] Monocytes/100 WBC (Bld) 10.8 % Normal 2.0-13.0 [facility] ([place]) Comment on above: Performed By: #### T ROPHS, MG, LAC, GFR, CBC, CMP, ADIFF, ANEU ####[address] [address] Neutrophils/100 WBC (Bld) 67.5 % Normal 50.0-75.0 [facility] ([place]) Comment on above: Performed By: #### T ROPHS, MG, LAC, GFR, CBC, CMP, ADIFF, ANEU ####[address] [address] .GFRon 09-03-2023 GFR >60 Normal [facility] ([place]) Comment on above: Result Comment: GFR Population [...] meters Performed By: #### B G #### [address] [address] GFR Non- 56 ml/min/1.73sqm Normal [facility] ([place]) Comment on above: Result Comment: GFR Population [...] meters Performed By: #### B G #### [address] [address] .NEUABSon 09-03-2023 Neutrophil, Absolute 6.6 10 3/mcL Normal 2.3-8.1 [facility] ([place]) Comment on above: Performed By: #### T ROPHS, MG, LAC, GFR, CBC, CMP, ADIFF, ANEU ####[address] [address] APTTon 09-03-2023 aPTT Coag (Bld) [Time] 44.3 s High 25.0-35.0 [facility] ([place]) Comment on above: Result Comment: For Heparin anticoagulation therapy, the recommended therapeutic range is: 54-77 seconds (APTT Correlation with Anti-Xa therapeutic range of 0.3-0.7 units/ml). PLEASE REFERENCE THE PHARMACY PROTOCOL FOR DOSING. Heparin dose (APTT) Heparin IV Normal [facility] ([place]) aPTT Coag (Bld) [Time] 45.1 s High 25.0-35.0 [facility] ([place]) Comment on above: Result Comment: For Heparin anticoagulation therapy, the recommended therapeutic range is: 54-77 seconds (APTT Correlation with Anti-Xa therapeutic range of 0.3-0.7 units/ml). PLEASE REFERENCE THE PHARMACY PROTOCOL FOR DOSING. Heparin dose (APTT) Heparin IV Normal [facility] ([place]) BGon 09-03-2023 Barometric Pressure 715 mmHg Normal [facility] ([place]) Comment on above: Performed By: #### L AC #### [address] [address] Base excess Calc (Bld) [Moles/Vol] 7.6 mmol/L Normal [facility] ([place]) Comment on above: Performed By: #### L AC #### [address] [address] CO2 [Moles/Vol] 30.7 mmol/L High 22.0-30.0 [facility] ([place]) Comment on above: Performed By: #### L AC #### [address] [address] HCO3 (Bld) [Moles/Vol] 29.7 mmol/L High 21.0-29.0 [facility] ([place]) Comment on above: Performed By: #### L AC #### [address] [address] Oxygen (Bld) [Partial pressure] 65.0 mm[Hg] Low 74.0-108.0 [facility] ([place]) Comment on above: Performed By: #### L AC #### [address] [address] Oxygen saturation in Blood 94.0 % Normal 92.0-96.0 [facility] ([place]) Comment on above: Performed By: #### L AC #### [address] [address] pCO2 33.3 mmHg Normal 32.0-46.0 [facility] ([place]) Comment on above: Performed By: #### L AC #### [address] [address] pH (Bld) 7.568 [pH] High 7.380-7.460 [facility] ([place]) Comment on above: Performed By: #### L AC #### [address] [address] Barometric Pressure 720 mmHg Normal [facility] ([place]) Comment on above: Performed By: #### B G ####[address] [address] Base excess Calc (Bld) [Moles/Vol] 7.2 mmol/L Normal [facility] ([place]) Comment on above: Performed By: #### B G ####[address] [address] CO2 [Moles/Vol] 32.5 mmol/L High 22.0-30.0 [facility] ([place]) Comment on above: Performed By: #### B G ####[address] [address] HCO3 (Bld) [Moles/Vol] 31.2 mmol/L High 21.0-29.0 [facility] ([place]) Comment on above: Performed By: #### B G ####[place] [id number] Oxygen (Bld) [Partial pressure] 86.0 mm[Hg] Normal 74.0-108.0 [facility] ([place]) Comment on above: Performed By: #### B G ####[address] [address] Oxygen saturation in Blood 96.7 % High 92.0-96.0 [facility] ([place]) Comment on above: Performed By: #### B G ####[address] [address] pCO2 41.9 mmHg Normal 32.0-46.0 [facility] ([place]) Comment on above: Performed By: #### B G ####[place] [address] [place] [address] pH (Bld) 7.490 [pH] High 7.380-7.460 [facility] ([place]) Comment on above: Performed By: #### B G ####[place] [id number] CBCon 09-03-2023 Erythrocyte distribution width (RBC) [Ratio] 14.6 % Normal 11.5-15.5 [facility] ([place]) Comment on above: Performed By: #### T ROPHS, MG, LAC, GFR, CBC, CMP, ADIFF, ANEU ####[place] [address] Hematocrit (Bld) [Volume fraction] 36.6 % Normal 34.0-46.0 [facility] ([place]) Comment on above: Performed By: #### T ROPHS, MG, LAC, GFR, CBC, CMP, ADIFF, ANEU ####[place] [address] Hgb 12.3 G/dL Normal 12.0-16.0 [facility] ([place]) Comment on above: Performed By: #### T ROPHS, MG, LAC, GFR, CBC, CMP, ADIFF, ANEU ####[place] [address] MCH (RBC) [Entitic mass] 30.3 pg Normal 27.0-33.0 [facility] ([place]) Comment on above: Performed By: #### T ROPHS, MG, LAC, GFR, CBC, CMP, ADIFF, ANEU ####[place] [address] MCHC 33.5 G/dL Normal 32.0-36.0 [facility] ([place]) Comment on above: Performed By: #### T ROPHS, MG, LAC, GFR, CBC, CMP, ADIFF, ANEU ####[place] [address] MCV (RBC) [Entitic vol] 90.2 fL Normal 80.0-99.0 [facility] ([place]) Comment on above: Performed By: #### T ROPHS, MG, LAC, GFR, CBC, CMP, ADIFF, ANEU ####[place] [address] Platelet 274 10 3/mcL Normal 150-450 [facility] ([place]) Comment on above: Performed By: #### T ROPHS, MG, LAC, GFR, CBC, CMP, ADIFF, ANEU ####[address] [address] Platelet mean volume (Bld) [Entitic vol] 7.7 fL Normal 6.6-10.5 [facility] ([place]) Comment on above: Performed By: #### T ROPHS, MG, LAC, GFR, CBC, CMP, ADIFF, ANEU ####[place] [address] RBC 4.05 10 6/mcL Low 4.10-5.30 [facility] ([place]) Comment on above: Performed By: #### T ROPHS, MG, LAC, GFR, CBC, CMP, ADIFF, ANEU ####[place] [address] WBC 9.8 10 3/mcL Normal 4.5-10.8 [facility] ([place]) Comment on above: Performed By: #### T ROPHS, MG, LAC, GFR, CBC, CMP, ADIFF, ANEU ####[place] [address] CMPon 09-03-2023 Albumin Level 2.8 G/dL Low 3.2-4.8 [facility] ([place]) Comment on above: Performed By: #### B G #### [place] [address] Albumin/Globulin [Mass ratio] 1.0 {ratio} Normal 0.9-1.6 [facility] ([place]) Comment on above: Performed By: #### B G #### [place] [address] ALP [Catalytic activity/Vol] 98 U/L Normal 38-126 [facility] ([place]) Comment on above: Performed By: #### B G #### [place] [id number] ALT [Catalytic activity/Vol] 138 U/L High 10-49 [facility] ([place]) Comment on above: Performed By: #### B G #### [place] [address] AST [Catalytic activity/Vol] 92 U/L High 8-34 [facility] ([place]) Comment on above: Performed By: #### B G #### [address] [address] Bili Total 0.60 mg/dL Normal 0.20-1.20 [facility] ([place]) Comment on above: Result Comment: Use of this assay is not recommended for patients undergoing treatment with eltrombopag due to the potential for falsely elevated results. Performed By: #### B G #### [place] [id number] BUN/Creatinine Ratio 27.6 ratio High 10.0-22.0 [facility] ([place]) Comment on above: Performed By: #### B G #### [place] [id number] Calcium [Mass/Vol] 8.5 mg/dL Low 8.7-10.4 [facility] ([place]) Comment on above: Performed By: #### B G #### [place] [id number] Chloride [Moles/Vol] 105 mmol/L Normal 98-110 [facility] ([place]) Comment on above: Performed By: #### B G #### [place] [id number] CO2 [Moles/Vol] 31 mmol/L Normal 22-32 [facility] ([place]) Comment on above: Performed By: #### B G #### [place] [id number] Creatinine [Mass/Vol] 0.98 mg/dL Normal 0.50-1.20 [facility] ([place]) Comment on above: Performed By: #### B G #### [address] [address] Electrolyte Balance 4.0 mEq/L Normal 4.0-15.0 [facility] ([place]) Comment on above: Performed By: #### B G #### [place] [id number] Globulin 2.9 G/dL Normal 1.5-3.8 [facility] ([place]) Comment on above: Performed By: #### B G #### [place] [id number] [place] [address] Glucose [Mass/Vol] 110 mg/dL Normal 82-115 [facility] ([place]) Comment on above: Performed By: #### B G #### [address] [address] Potassium [Moles/Vol] 3.8 mmol/L Normal 3.5-5.0 [facility] ([place]) Comment on above: Performed By: #### B G #### [address] [address] Sodium [Moles/Vol] 140 mmol/L Normal 136-145 [facility] ([place]) Comment on above: Performed By: #### B G #### [address] [address] Total Protein 5.7 G/dL Normal 5.7-8.2 [facility] ([place]) Comment on above: Result Comment: No te - New Reference Range in effect 20 Performed By: #### B G #### [address] [address] Urea nitrogen [Mass/Vol] 27.0 mg/dL High 8.0-22.0 [facility] ([place]) Comment on above: Performed By: #### B G #### [address] [address] LABORATORYOrdered By: Ariadna Estes on 09-03-2023 Barometric [...] Lactic Acid Lvl 1.6 mmol/L Normal 0.2-2.0 [facility] ([place]) Comment on above: Performed By: #### B G #### [address] [address] MGon 09-03-2023 Magnesium [Mass/Vol] 2.3 mg/dL Normal 1.6-2.4 [facility] ([place]) Comment on above: Performed By: #### B G #### [address] [address] TROPHSon 09-03-2023 Troponin I High Sensitivity 1793.02 ng/L High 0.00-34.00 [facility] ([place]) Comment on above: Performed By: #### B G #### [address] [address] Troponin I High Sensitivity 2219.13 ng/L High 0.00-34.00 [facility] ([place]) Comment on above: Performed By: #### B G #### [address] [address] .Auto Diffon 09-02-2023 Basophil, Absolute 0.0 10 3/mcL Normal 0.0-0.3 [facility] ([place]) Comment on above: Performed By: #### L AC #### [address] [address] Basophils/100 WBC (Bld) 0.6 % Normal 0.0-2.5 [facility] ([place]) Comment on above: Performed By: #### L AC #### [address] [address] Eosinophil, Absolute 0.0 10 3/mcL Normal 0.0-0.7 [facility] ([place]) Comment on above: Performed By: #### L AC #### [address] [address] Eosinophils/100 WBC (Bld) 0.0 % Normal 0.0-6.0 [facility] ([place]) Comment on above: Performed By: #### L AC #### [address] [address] Lymphocyte, Absolute 0.6 10 3/mcL Low 0.9-4.3 [facility] ([place]) Comment on above: Performed By: #### L AC #### [address] [address] Lymphocytes/100 WBC (Bld) 8.0 % Low 20.0-40.0 [facility] ([place]) Comment on above: Performed By: #### L AC #### [address] [address] Monocyte, Absolute 0.2 10 3/mcL Normal 0.1-1.4 [facility] ([place]) Comment on above: Performed By: #### L AC #### [address] [address] Monocytes/100 WBC (Bld) 2.7 % Normal 2.0-13.0 [facility] ([place]) Comment on above: Performed By: #### L AC #### [address] [address] Neutrophils/100 WBC (Bld) 88.7 % High 50.0-75.0 [facility] ([place]) Comment on above: Performed By: #### L AC #### [address] [address] Basophil, Absolute 0.0 10 3/mcL Normal 0.0-0.3 [facility] ([place]) Comment on above: Performed By: #### P HOS, TROPHS, MG, CBC, ADIFF, ANEU, MYCO, CMP, CAION, GFR ####[address] [address] Basophils/100 WBC (Bld) 0.4 % Normal 0.0-2.5 [facility] ([place]) Comment on above: Performed By: #### P HOS, TROPHS, MG, CBC, ADIFF, ANEU, MYCO, CMP, CAION, GFR ####[address] [address] Eosinophil, Absolute 0.0 10 3/mcL Normal 0.0-0.7 [facility] ([place]) Comment on above: Performed By: #### P HOS, TROPHS, MG, CBC, ADIFF, ANEU, MYCO, CMP, CAION, GFR ####[address] [address] Eosinophils/100 WBC (Bld) 0.0 % Normal 0.0-6.0 [facility] ([place]) Comment on above: Performed By: #### P HOS, TROPHS, MG, CBC, ADIFF, ANEU, MYCO, CMP, CAION, GFR ####[address] [address] Lymphocyte, Absolute 0.3 10 3/mcL Low 0.9-4.3 [facility] ([place]) Comment on above: Performed By: #### P HOS, TROPHS, MG, CBC, ADIFF, ANEU, MYCO, CMP, CAION, GFR ####[address] [address] Lymphocytes/100 WBC (Bld) 3.6 % Low 20.0-40.0 [facility] ([place]) Comment on above: Performed By: #### P HOS, TROPHS, MG, CBC, ADIFF, ANEU, MYCO, CMP, CAION, GFR ####[address] [address] Monocyte, Absolute 0.2 10 3/mcL Normal 0.1-1.4 [facility] ([place]) Comment on above: Performed By: #### P HOS, TROPHS, MG, CBC, ADIFF, ANEU, MYCO, CMP, CAION, GFR ####[address] [address] Monocytes/100 WBC (Bld) 1.9 % Low 2.0-13.0 [facility] ([place]) Comment on above: Performed By: #### P HOS, TROPHS, MG, CBC, ADIFF, ANEU, MYCO, CMP, CAION, GFR ####[place] [address] [place] [address] Neutrophils/100 WBC (Bld) 94.1 % High 50.0-75.0 [facility] ([place]) Comment on above: Performed By: #### P HOS, TROPHS, MG, CBC, ADIFF, ANEU, MYCO, CMP, CAION, GFR ####[address] [address] .GFRon 09-02-2023 GFR Non- >60 Normal [facility] ([place]) Comment on above: Result Comment: GFR Population [...] CBC, ADIFF, ANEU, MYCO, CMP, CAION, GFR ####[address] [address] GFR >60 Normal [facility] ([place]) Comment on above: Result Comment: GFR Population [...] CBC, ADIFF, ANEU, MYCO, CMP, CAION, GFR ####[address] [address] .NEUABSon 09-02-2023 Neutrophil, Absolute 6.8 10 3/mcL Normal 2.3-8.1 [facility] ([place]) Comment on above: Performed By: #### L AC #### [place] [address] Neutrophil, Absolute 9.1 10 3/mcL High 2.3-8.1 [facility] ([place]) Comment on above: Performed By: #### P HOS, TROPHS, MG, CBC, ADIFF, ANEU, MYCO, CMP, CAION, GFR ####[place] [address] APTTon 09-02-2023 aPTT Coag (Bld) [Time] 67.5 s High 25.0-35.0 [facility] ([place]) Comment on above: Result Comment: For Heparin anticoagulation therapy, the recommended therapeutic range is: 54-77 seconds (APTT Correlation with Anti-Xa therapeutic range of 0.3-0.7 units/ml). PLEASE REFERENCE THE PHARMACY PROTOCOL FOR DOSING. Heparin dose (APTT) Heparin IV Normal [facility] ([place]) aPTT Coag (Bld) [Time] 27.8 s Normal 25.0-35.0 [facility] ([place]) Comment on above: Result Comment: For Heparin anticoagulation therapy, the recommended therapeutic range is: 54-77 seconds (APTT Correlation with Anti-Xa therapeutic range of 0.3-0.7 units/ml). PLEASE REFERENCE THE PHARMACY PROTOCOL FOR DOSING. Heparin dose (APTT) Heparin IV Normal [facility] ([place]) BGon 09-02-2023 Barometric Pressure 714 mmHg Normal [facility] ([place]) Comment on above: Performed By: #### B G #### [address] [address] Base excess Calc (Bld) [Moles/Vol] 1.5 mmol/L Normal [facility] ([place]) Comment on above: Performed By: #### B G #### [address] [address] CO2 [Moles/Vol] 27.8 mmol/L Normal 22.0-30.0 [facility] ([place]) Comment on above: Performed By: #### B G #### [address] [address] HCO3 (Bld) [Moles/Vol] 26.5 mmol/L Normal 21.0-29.0 [facility] ([place]) Comment on above: Performed By: #### B G #### [place] [id number] Oxygen (Bld) [Partial pressure] 130.5 mm[Hg] High 74.0-108.0 [facility] ([place]) Comment on above: Performed By: #### B G #### [place] [id number] Oxygen saturation in Blood 98.7 % High 92.0-96.0 [facility] ([place]) Comment on above: Performed By: #### B G #### [address] [address] pCO2 43.2 mmHg Normal 32.0-46.0 [facility] ([place]) Comment on above: Performed By: #### B G #### [address] [address] pH (Bld) 7.406 [pH] Normal 7.380-7.460 [facility] ([place]) Comment on above: Performed By: #### B G #### [address] [address] CAIONon 09-02-2023 Calcium Ionized 0.99 mmol/L Low 1.12-1.32 [facility] ([place]) Comment on above: Performed By: #### P HOS, TROPHS, MG, CBC, ADIFF, ANEU, MYCO, CMP, CAION, GFR ####[place] [address] CBCon 09-02-2023 Erythrocyte distribution width (RBC) [Ratio] 14.4 % Normal 11.5-15.5 [facility] ([place]) Comment on above: Performed By: #### L AC #### [place] [address] Hematocrit (Bld) [Volume fraction] 39.9 % Normal 34.0-46.0 [facility] ([place]) Comment on above: Performed By: #### L AC #### [place] [address] Hgb 13.4 G/dL Normal 12.0-16.0 [facility] ([place]) Comment on above: Performed By: #### L AC #### [place] [address] MCH (RBC) [Entitic mass] 30.8 pg Normal 27.0-33.0 [facility] ([place]) Comment on above: Performed By: #### L AC #### [place] [address] MCHC 33.6 G/dL Normal 32.0-36.0 [facility] ([place]) Comment on above: Performed By: #### L AC #### [place] [address] MCV (RBC) [Entitic vol] 91.5 fL Normal 80.0-99.0 [facility] ([place]) Comment on above: Performed By: #### L AC #### [place] [id number] Platelet 278 10 3/mcL Normal 150-450 [facility] ([place]) Comment on above: Performed By: #### L AC #### [place] [id number] Platelet mean volume (Bld) [Entitic vol] 7.2 fL Normal 6.6-10.5 [facility] ([place]) Comment on above: Performed By: #### L AC #### [place] [address] RBC 4.36 10 6/mcL Normal 4.10-5.30 [facility] ([place]) Comment on above: Performed By: #### L AC #### [place] [address] WBC 7.7 10 3/mcL Normal 4.5-10.8 [facility] ([place]) Comment on above: Performed By: #### L AC #### [place] [address] Erythrocyte distribution width (RBC) [Ratio] 14.5 % Normal 11.5-15.5 [facility] ([place]) Comment on above: Performed By: #### P HOS, TROPHS, MG, CBC, ADIFF, ANEU, MYCO, CMP, CAION, GFR ####[place] [address] Hematocrit (Bld) [Volume fraction] 42.1 % Normal 34.0-46.0 [facility] ([place]) Comment on above: Performed By: #### P HOS, TROPHS, MG, CBC, ADIFF, ANEU, MYCO, CMP, CAION, GFR ####[place] [address] Hgb 13.8 G/dL Normal 12.0-16.0 [facility] ([place]) Comment on above: Performed By: #### P HOS, TROPHS, MG, CBC, ADIFF, ANEU, MYCO, CMP, CAION, GFR ####[place] [address] MCH (RBC) [Entitic mass] 30.3 pg Normal 27.0-33.0 [facility] ([place]) Comment on above: Performed By: #### P HOS, TROPHS, MG, CBC, ADIFF, ANEU, MYCO, CMP, CAION, GFR ####[place] [address] MCHC 32.9 G/dL Normal 32.0-36.0 [facility] ([place]) Comment on above: Performed By: #### P HOS, TROPHS, MG, CBC, ADIFF, ANEU, MYCO, CMP, CAION, GFR ####[place] [address] MCV (RBC) [Entitic vol] 92.3 fL Normal 80.0-99.0 [facility] ([place]) Comment on above: Performed By: #### P HOS, TROPHS, MG, CBC, ADIFF, ANEU, MYCO, CMP, CAION, GFR ####[place] [address] Platelet 314 10 3/mcL Normal 150-450 [facility] ([place]) Comment on above: Performed By: #### P HOS, TROPHS, MG, CBC, ADIFF, ANEU, MYCO, CMP, CAION, GFR ####[place] [address] Platelet mean volume (Bld) [Entitic vol] 7.3 fL Normal 6.6-10.5 [facility] ([place]) Comment on above: Performed By: #### P HOS, TROPHS, MG, CBC, ADIFF, ANEU, MYCO, CMP, CAION, GFR ####[place] [address] RBC 4.56 10 6/mcL Normal 4.10-5.30 [facility] ([place]) Comment on above: Performed By: #### P HOS, TROPHS, MG, CBC, ADIFF, ANEU, MYCO, CMP, CAION, GFR ####[place] [address] WBC 9.6 10 3/mcL Normal 4.5-10.8 [facility] ([place]) Comment on above: Performed By: #### P HOS, TROPHS, MG, CBC, ADIFF, ANEU, MYCO, CMP, CAION, GFR ####[place] [address] CMPon 09-02-2023 Albumin Level 3.3 G/dL Normal 3.2-4.8 [facility] ([place]) Comment on above: Performed By: #### P HOS, TROPHS, MG, CBC, ADIFF, ANEU, MYCO, CMP, CAION, GFR ####[address] [address] Albumin/Globulin [Mass ratio] 0.9 {ratio} Normal 0.9-1.6 [facility] ([place]) Comment on above: Performed By: #### P HOS, TROPHS, MG, CBC, ADIFF, ANEU, MYCO, CMP, CAION, GFR ####[address] [address] ALP [Catalytic activity/Vol] 130 U/L High 38-126 [facility] ([place]) Comment on above: Performed By: #### P HOS, TROPHS, MG, CBC, ADIFF, ANEU, MYCO, CMP, CAION, GFR ####[address] [address] ALT [Catalytic activity/Vol] 226 U/L High 10-49 [facility] ([place]) Comment on above: Performed By: #### P HOS, TROPHS, MG, CBC, ADIFF, ANEU, MYCO, CMP, CAION, GFR ####[address] [address] AST [Catalytic activity/Vol] 230 U/L High 8-34 [facility] ([place]) Comment on above: Performed By: #### P HOS, TROPHS, MG, CBC, ADIFF, ANEU, MYCO, CMP, CAION, GFR ####[address] [address] Bili Total 0.40 mg/dL Normal 0.20-1.20 [facility] ([place]) Comment on above: Result Comment: Use of this assay is not recommended for patients undergoing treatment with eltrombopag due to the potential for falsely elevated results. Performed By: #### P HOS, TROPHS, MG, CBC, ADIFF, ANEU, MYCO, CMP, CAION, GFR ####[address] [address] BUN/Creatinine Ratio 25.6 ratio High 10.0-22.0 [facility] ([place]) Comment on above: Performed By: #### P HOS, TROPHS, MG, CBC, ADIFF, ANEU, MYCO, CMP, CAION, GFR ####[place] [address] Calcium [Mass/Vol] 8.0 mg/dL Low 8.7-10.4 [facility] ([place]) Comment on above: Performed By: #### P HOS, TROPHS, MG, CBC, ADIFF, ANEU, MYCO, CMP, CAION, GFR ####[place] [address] Chloride [Moles/Vol] 106 mmol/L Normal 98-110 [facility] ([place]) Comment on above: Performed By: #### P HOS, TROPHS, MG, CBC, ADIFF, ANEU, MYCO, CMP, CAION, GFR ####[place] [address] CO2 [Moles/Vol] 28 mmol/L Normal 22-32 [facility] ([place]) Comment on above: Performed By: #### P HOS, TROPHS, MG, CBC, ADIFF, ANEU, MYCO, CMP, CAION, GFR ####[place] [address] Creatinine [Mass/Vol] 0.78 mg/dL Normal 0.50-1.20 [facility] ([place]) Comment on above: Performed By: #### P HOS, TROPHS, MG, CBC, ADIFF, ANEU, MYCO, CMP, CAION, GFR ####[place] [address] Electrolyte Balance 6.0 mEq/L Normal 4.0-15.0 [facility] ([place]) Comment on above: Performed By: #### P HOS, TROPHS, MG, CBC, ADIFF, ANEU, MYCO, CMP, CAION, GFR ####[place] [address] Globulin 3.5 G/dL Normal 1.5-3.8 [facility] ([place]) Comment on above: Performed By: #### P HOS, TROPHS, MG, CBC, ADIFF, ANEU, MYCO, CMP, CAION, GFR ####[place] [id number] Glucose [Mass/Vol] 165 mg/dL High 82-115 [facility] ([place]) Comment on above: Performed By: #### P HOS, TROPHS, MG, CBC, ADIFF, ANEU, MYCO, CMP, CAION, GFR ####[address] [address] Potassium [Moles/Vol] 2.9 mmol/L Low 3.5-5.0 [facility] ([place]) Comment on above: Performed By: #### P HOS, TROPHS, MG, CBC, ADIFF, ANEU, MYCO, CMP, CAION, GFR ####[place] [address] Sodium [Moles/Vol] 140 mmol/L Normal 136-145 [facility] ([place]) Comment on above: Performed By: #### P HOS, TROPHS, MG, CBC, ADIFF, ANEU, MYCO, CMP, CAION, GFR ####[place] [address] Total Protein 6.8 G/dL Normal 5.7-8.2 [facility] ([place]) Comment on above: Result Comment: No te - New Reference Range in effect 20 Performed By: #### P HOS, TROPHS, MG, CBC, ADIFF, ANEU, MYCO, CMP, CAION, GFR ####[place] [address] Urea nitrogen [Mass/Vol] 20.0 mg/dL Normal 8.0-22.0 [facility] ([place]) Comment on above: Performed By: #### P HOS, TROPHS, MG, CBC, ADIFF, ANEU, MYCO, CMP, CAION, GFR ####[address] [address] HEPACon 09-02-2023 Hep A IgM Ab Non-Reactive Normal Non-Reactiv e [facility] ([place]) Comment on above: Performed By: #### L AC #### [place] [address] Hep A IgM Ab Int Normal [facility] ([place]) Comment on above: Result Comment: No s erological evidence of a current Hepatitis A infection. See Interp Performed By: #### L AC #### [place] [address] Hep B Core IgM Ab Non-Reactive Normal Non-Reacti v e [facility] ([place]) Comment on above: Performed By: #### L AC #### [place] [address] Hep B Core IgM Ab Int Normal [facility] ([place]) Comment on above: Result Comment: Samp les with a value < 0.80 Index are considered nonreactive (negative) for IgM antibodies to hepatitis B core antigen. See Interp Performed By: #### L AC #### [place] [address] Hep C Ab Non-Reactive Normal Non-Reactiv [facility] ([place]) Comment on above: Performed By: #### L AC #### [place] [address] Hep C Ab Int [facility] ([place]) Comment on above: Result Comment: Nonr eactive: Samples with a value < 0.80 are considered nonreactive (negative) for antibodies to HCV. A negative test result does not exclude the possibility of exposure to or infection with HCV. HCV antibodies may be undetectable in some stages of the infection and in some clinical conditions. See Interp Performed By: #### L AC #### [place] [address] Hep B Surf Ag Non-Reactive Normal Non-Reactiv [facility] ([place]) Comment on above: Performed By: #### L AC #### [place] [address] LABORATORYOrdered By: Ariadna Estes on 09-02-2023 Lactate [...] mg/dL Normal 2.4 - 5 .1 mg/dL [facility] Comment on above: Interpretive Data: * *Note [...] Comment on above: Interpretive Data: T jt [employer] [place] [employer] (CHEST, 1992, [id number]) [...] Lactic Acid Lvl 1.7 mmol/L Normal 0.2-2.0 [facility] ([place]) Comment on above: Performed By: #### L AC ####[place] [address] Lactic Acid Lvl 2.8 mmol/L High 0.2-2.0 [facility] ([place]) Comment on above: Performed By: #### L AC #### [place] [address] Lactic Acid Lvl 2.5 mmol/L High 0.2-2.0 [facility] ([place]) Comment on above: Performed By: #### L AC #### [place] [address] Lactic Acid Lvl 1.8 mmol/L Normal 0.2-2.0 [facility] ([place]) Comment on above: Performed By: #### L AC ####[place] [address] MGon 09-02-2023 Magnesium [Mass/Vol] 2.4 mg/dL Normal 1.6-2.4 [facility] ([place]) Comment on above: Performed By: #### P HOS, TROPHS, MG, CBC, ADIFF, ANEU, MYCO, CMP, CAION, GFR ####[address], [place] [address] No Panel Informationon 09-02 Microscopic examination of blood, culture Culture has been received in lab and is no growth to date. Routine cultures are held for 5 days. [facility] Culture Urine No growth at 48 hours. [facility] No Panel InformationOrdered By: Sandy Davis on 09-02-2023 Culture Respiratory with Gram Stain Normal respiratory renu present at 48 hours Sensitivity testing not indicated [facility] Comment on above: Requests for Mycopla sma, Legionella, Fungi, Mycobacteria, Chlamydia, and Viruses require ordering of those individual tests. GS Rare Polymorphonucle ar cells Rare Gram Positive Cocci Rare Gram Positive Rods [facility] Comment on above: Requests for Mycopla sma, Legionella, Fungi, Mycobacteria, Chlamydia, and Viruses require ordering of those individual tests. PBNPon 09-02-2023 Natriuretic peptide B (Bld) [Mass/Vol] 5863 pg/mL High 0-900 [facility] ([place]) Comment on above: Result Comment: NT-p roBNP results of less than 300 pg/mL effectively rules out acute congestive heart failure with 99% negative predictive value. Performed By: #### P BNP #### [place] [id number] [place] [address] PHOSon 09-02-2023 Phosphate [Mass/Vol] 3.6 mg/dL Normal 2.4-5.1 [facility] ([place]) Comment on above: Result Comment: No te - New Reference Range in effect 20 Performed By: #### P HOS, TROPHS, MG, CBC, ADIFF, ANEU, MYCO, CMP, CAION, GFR ####[place] [address] [place] [id number] PROon 09-02-2023 INR Coag (PPP) [Relative time] 1.0 {INR} Normal [facility] ([place]) Comment on above: Result Comment: The [employer] [place] [employer] (CHEST, 1992, [id number]) recommended therapeutic range for oral anticoagulant therapy is: LOW RISK: Prophylaxis of venous thrombosis INR: 2.0-3.0 Treatment of pulmonary embolism 2.0-3.0 Prevention of systemic embolism 2.0-3.0 HIGH RISK: Mechanical prosthetic valves 2.5-3.5 Performed By: #### L AC #### [place] [address] PT Coag (PPP) [Time] 11.8 s Normal 9.0-14.2 [facility] ([place]) Comment on above: Result Comment: Effe ctive 05/06/08, Protime results may be affected by some antibiotics (i.e. Ciprofloxacin, Azithromycin, Bactrim) which may potentiate the action of oral anticoagulants, with further increases in Protime/INR. Performed By: #### L AC #### [place] [address] TROPHSon 09-02-2023 Troponin I High Sensitivity 3010.17 ng/L High 0.00-34.00 [facility] ([place]) Comment on above: Performed By: #### L AC #### [place] [address] Troponin I High Sensitivity 2152.97 ng/L High 0.00-34.00 [facility] ([place]) Comment on above: Performed By: #### T ROP ####[place] [address] Troponin I High Sensitivity 1582.01 ng/L High 0.00-34.00 [facility] ([place]) Comment on above: Performed By: #### L AC #### [place] [address] Troponin I High Sensitivity 926.56 ng/L High 0.00-34.00 [facility] ([place]) Comment on above: Performed By: #### P HOS, TROPHS, MG, CBC, ADIFF, ANEU, MYCO, CMP, CAION, GFR ####[place] [address] US ABDOMEN LIMITEDon 023 US ABDOMEN LIMITED ORIGINAL EXAMINATION: LIMITED ABDOMINAL [id number]/11/2023 12:19 pm COMPARISON: None HISTORY: ORDERING SYSTEM [...] 09/02/2023 2:27:43 PM Ordering Provider: FRANCESCA Soto [facility] ([place]) XR CHEST 1 VIEWon 09-02-2023 XR CHEST [...] 09/02/2023 8:06:12 AM Ordering Provider: FRANCESCA Soto [facility] ([place]) Coronavirus 2019on 1 COVID 19 Result RN VASCULAR Normal Negative for COVID19 (SARS CoV2) by PCR. [facility] Comment on above: Result Comment: Nega tive for This test was developed and its performance characteristics determined by [facility]'s [facility] [place]. This test has been authorized by FDA [...] its performance characteristics determined by [facility]'s [facility] [employer] [place]. This test has been authorized by FDA [...] its performance characteristics determined by [facility]'s [facility] [place]. This test has been authorized by FDA under an Emergency Use Authorization (EUA). This test has been validated in accordance with the FDA's Guidance Document Policy for Diagnostics Testing in Laboratories Certified to Perform High Complexity Testing under CLIA prior to Emergency use Authorization for Coronavirus Disease 2019 during the Public Health Emergency issued on December 21, 2019. COVID 19 Source RN VASCULAR Normal [facility] Comment on above: Result Comment: Naso pharyngeal Corrected on 10/31 AT 0655: Previously reported as NASOPHARYNGEAL Swab Corrected on 10/31 AT 0655: Previously reported as NASOPHARYNGEAL Office Visit: new patienton 01-26-2017 Documentation of current medications (procedure) Done Invalid Interpretation Code [employer] Work Phone: Smoking cessation education (procedure) yes Invalid Interpretation Code [employer] Work Phone: Tobacco smoking status NHIS Never Invalid Interpretation Code [employer] Work Phone: Tobacco use [facility] Current every day smoker Invalid Interpretation Code [employer] Work Phone: [phone] Replaced Document: Tremayne BOLDEN Observationson 01-12-2017 electrocardiogram interpretation Sinus Bradycardia - Negative T-waves - Anterior ischemia. ABNORMAL Invalid Interpretation Code [employer] Work Phone: [phone] GE use only - for [employer] import when terms are not otherwise specified 443 ms Invalid Interpretation Code [employer] Work Phone: [phone] P wave axis, electrocardiogram 76 deg Invalid Interpretation Code [employer] Work Phone: [phone] NE interval, electrocardiogram 144 ms Invalid Interpretation Code [employer] Work Phone: [phone] Pulse (Heart Rate) 57 /min Invalid Interpretation Code [employer] Work Phone: [phone] QRS axis, electrocardiogram 65 deg Invalid Interpretation Code [employer] Work Phone: [phone] QRS duration, electrocardiogram 80 ms Invalid Interpretation Code [employer] Work Phone: [phone] QT interval, electrocardiogram new path ms Invalid Interpretation Code [employer] Work Phone: [phone] T wave axis, electrocardiogram 1 deg Invalid Interpretation Code [employer] Work Phone: [phone] Clinical Lists 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 Left ventricular Ejection fraction 66 % Invalid Interpretation Code [employer] Work Phone: [phone] Vital Signs Date Time Vital Sign Value Performing Clinician Facility 07-26-2025 13:37-0400 Body temperature 97 [degF] Alfonso Ozuna RN VASCULAR-C Work Phone: [facility] 07-26-2025 13:37-0400 Diastolic blood pressure 82 mm[Hg] Alfonso Ozuna RN VASCULAR-C Work Phone: [facility] 07-26-2025 13:37-0400 Heart rate 72 /min Alfonso Ozuna RN VASCULAR-C Work Phone: [facility] 07-26-2025 13:37-0400 Respiratory rate 18 /min Alfonso Ozuna RN VASCULAR-C Work Phone: [facility] 07-26-2025 13:37-0400 SaO2% (BldA) [Mass fraction] 100 % Alfonso Ozuna RN VASCULAR-C Work Phone: [facility] 07-26-2025 13:37-0400 Systolic blood pressure 140 mm[Hg] Alfonso Ozuna RN VASCULAR-C Work Phone: [facility] 07-26-2025 06:00-0400 Body mass index (BMI) [Ratio] 17.2 kg/m2 Alfonso Ozuna RN VASCULAR-C Work Phone: [facility] 07-26-2025 06:00-0400 Body weight 45.6 kg Alfonsoteofilo Ozuna RN VASCULAR-C Work Phone: [facility] 07-25-2025 14:09-0400 Body height 162.56 cm Alfonso Ozuna RN VASCULAR-C Work Phone: [facility] 07-24-2025 16:39-0400 Inhaled oxygen flow rate 2 L/min Alfonso Ozuna RN VASCULAR-C Work Phone: [facility] 07-23-2025 07:25-0400 Inhaled oxygen concentration 99 % Alfonsoteofilo Ozuna RN VASCULAR-C Work Phone: [facility] 07-23-2025 01:15-0400 Heart rate 96 /min Alfonso Ozuna RN VASCULAR-C Work Phone: [facility] 07-23-2025 01:15-0400 Respiratory rate 18 /min Alfonso Ozuna RN VASCULAR-C Work Phone: [facility] 07-23-2025 00:00-0400 Inhaled oxygen flow rate 4 L/min Alfonso Ozuna RN VASCULAR-C Work Phone: [facility] 07-22-2025 23:00-0400 Diastolic blood pressure 67 mm[Hg] Alfonso Ozuna RN VASCULAR-C Work Phone: [facility] 07-22-2025 23:00-0400 SaO2% (BldA) [Mass fraction] 96 % Alfonso Ozuna RN VASCULAR-C Work Phone: [facility] 07-22-2025 23:00-0400 Systolic blood pressure 169 mm[Hg] Alfonso Ozuna RN VASCULAR-C Work Phone: [facility] 07-22-2025 22:00-0400 Body temperature 99.6 [degF] Alfonso Ozuna RN VASCULAR-C Work Phone: [facility] 07-22-2025 09:23-0400 Body height 162.56 cm Alfonso Laith RN VASCULAR-C Work Phone: [facility] 07-22-2025 09:23-0400 Body weight 50.7 kg Alfonso Ozuna RN VASCULAR-C Work Phone: [facility] 07-22-2025 06:46-0400 Inhaled oxygen concentration 91 % Alfonso Ozuna RN VASCULAR-C Work Phone: [facility] 07-22-2025 05:36-0400 Body mass index (BMI) [Ratio] 19.1 kg/m2 Alfonso Ozuna RN VASCULAR-C Work Phone: [facility] 06-18-2025 03:58-0400 SaO2% (BldA) [Mass fraction] 97.1 % JHONNY VALENCIA MD [facility] 06-17-2025 04:13-0400 SaO2% (BldA) [Mass fraction] 97.7 % JHONNY VALENCIA MD [facility] 06-16-2025 11:07-0400 SaO2% (BldA) [Mass fraction] 97.1 % JHONNY VALENCIA MD [facility] 11-09-2024 07:16-0500 Body temperature 98.06 [degF] JHONNY VALENCIA MD [facility] 11-09-2024 07:16-0500 Diastolic Blood Pressure Non-Invasive 72 mm[Hg] JHONNY VALENCIA MD [facility] 11-09-2024 07:16-0500 Heart rate 64 /min JHONNY VALENCIA MD [facility] 11-09-2024 07:16-0500 Respiratory rate 20 /min JHONNY VALENCIA MD [facility] 11-09-2024 07:16-0500 Systolic Blood Pressure Non-Invasive 161 mm[Hg] JHONNY VALENCIA MD [facility] 11-09-2024 06:53-0500 Heart rate 72 /min JHONNY VALENCIA MD [address] [place] [address] 11-09-2024 06:53-0500 Respiratory rate 20 /min JHONNY VALENCIA MD [facility] 11-09-2024 06:22-0500 Heart rate 63 /min JHONNY VALENCIA MD [address] 11-09-2024 04:03-0500 Body temperature 98.42 [degF] JHONNY VALENCIA MD [facility] 11-09-2024 04:03-0500 Diastolic Blood Pressure Non-Invasive 74 mm[Hg] JHONNY VALENCIA MD [facility] 11-09-2024 04:03-0500 Heart rate 63 /min JHONNY VALENCIA MD [facility] 11-09-2024 04:03-0500 Mean blood pressure 97 mm[Hg] JHONNY VALENCIA MD [facility] 11-09-2024 04:03-0500 Respiratory rate 22 /min JHONNY VALENCIA MD [facility] 11-09-2024 04:03-0500 Systolic Blood Pressure Non-Invasive 162 mm[Hg] JHONNY VALENCIA MD [facility] 11-09-2024 02:46-0500 Heart rate 63 /min JHONNY VALENCIA MD [facility] 11-09-2024 00:45-0500 Blood Pressure Cuff Size JHONNY VALENCIA MD [facility] 11-09-2024 00:45-0500 Blood Pressure Location JHONNY VALENCIA MD [facility] 11-09-2024 00:45-0500 Body temperature 98.06 [degF] JHONNY VALENCIA MD [facility] 11-09-2024 00:45-0500 Diastolic Blood Pressure Non-Invasive 63 mm[Hg] JHONNY VALENCIA MD [facility] 11-09-2024 00:45-0500 Heart rate 65 /min JHONNY VALENCIA MD [facility] 11-09-2024 00:45-0500 Reason For Taking VItal Signs JHONNY VALENCIA MD [facility] 11-09-2024 00:45-0500 Systolic Blood Pressure Non-Invasive 133 mm[Hg] JHONNY VALENCIA MD [facility] 11-08-2024 19:18-0500 Blood Pressure Cuff Size JHONNY VALENCIA MD [facility] 11-08-2024 19:18-0500 Blood Pressure Location JHONNY VALENCIA MD [facility] 11-08-2024 19:18-0500 Reason For Taking VItal Signs JHONNY VALENCIA MD [facility] 11-08-2024 14:34-0500 Reason For Taking VItal Signs JHONNY VALENCIA MD [facility] 11-08-2024 11:03-0500 Blood Pressure Cuff Size JHONNY VALENCIA MD [facility] 11-08-2024 11:03-0500 Blood Pressure Location JHONNY VALENCIA MD [facility] 11-08-2024 11:03-0500 Blood Pressure Method JHONNY VALENCIA MD [facility] 11-08-2024 07:29-0500 Blood Pressure Method JHONNY VALENCIA MD [facility] 11-08-2024 06:19-0500 Heart rate 70 /min JHONNY VALENCIA MD [facility] 11-07-2024 23:30-0500 Heart rate 54 /min JHONNY VALENCIA MD [facility] 11-07-2024 23:30-0500 Mean blood pressure 98 mm[Hg] JHONNY VALENCIA MD [facility] 11-07-2024 12:22-0500 Mean blood pressure 80 mm[Hg] JHONNY VALENCIA MD [facility] 11-07-2024 03:30-0500 Body temperature 97.34 [degF] JHONNY VALENCIA MD [facility] 11-06-2024 23:33-0500 Body temperature 97.52 [degF] HJONNY VALENCIA MD [facility] 11-06-2024 03:27-0500 Body temperature 98.06 [degF] JHONNY VALENCIA MD [facility] 11-06-2024 03:24-0500 SaO2% (BldA) [Mass fraction] 97.4 % JHONNY VALENCIA MD [facility] 11-05-2024 08:33-0500 Heart rate 107 /min JHONNY VALENCIA MD [facility] 11-05-2024 03:15-0500 SaO2% (BldA) [Mass fraction] 94.7 % JHONNY VALENCIA MD [facility] 11-04-2024 12:29-0500 SaO2% (BldA) [Mass fraction] 98.1 % JHONNY VALENCIA MD [facility] 11-04-2024 11:10-0500 Body height 157.5 cm JHONNY VALENCIA MD [facility] 11-04-2024 11:10-0500 Body weight 54.5 kg JHONNY VALENCIA MD [facility] 11-04-2024 11:10-0500 Body weight 21.97 kg/m2 JHONNY VALENCIA MD [facility] 10-03-2024 14:26-0500 Body height 162.6 cm Kenzie Callahanman RHINOLOGIST-ENVIRONMENTAL ATTORNEY Work Phone: 6(680)[phone] [place] [address] 10-03-2024 14:26-0500 Body mass index (BMI) [Ratio] 18.02 kg/m2 Kenzie Marizol RHINOLOGIST-ENVIRONMENTAL ATTORNEY Work Phone: 4(521)858-623298 [place] [address] 10-03-2024 14:26-0500 Body weight 47.63 kg Kenzie Marizol RHINOLOGIST-ENVIRONMENTAL ATTORNEY Work Phone: 4(888)811-208298 [place] [address] 10-03-2024 14:26-0500 Diastolic blood pressure 81 mm[Hg] Kenzie Marizol RHINOLOGIST-ENVIRONMENTAL ATTORNEY Work Phone: 9(789)174-163798 [place] [address] 10-03-2024 14:26-0500 Heart rate 60 /min Kenzie Marizol RHINOLOGIST-ENVIRONMENTAL ATTORNEY Work Phone: 6(999)741-191798 [place] [address] 10-03-2024 14:26-0500 Systolic blood pressure 195 mm[Hg] Kenzie Marizol RHINOLOGIST-ENVIRONMENTAL ATTORNEY Work Phone: 0([phone])[phone] [place] [address] 09-18-2023 12:02-0500 Body height 162.6 cm Elvin Newbill PA-C Work Phone: 1(000)[phone] [place] [address] 09-18-2023 12:02-0500 Body mass index (BMI) [Ratio] 17.7 kg/m2 Elvin Newbill PA-C Work Phone: 7(184)[phone] [place] [address] 09-18-2023 12:02-0500 Body temperature 97.81 [degF] Elvin Newbill PA-C Work Phone: [facility] 09-18-2023 12:02-0500 Body weight 46.77 kg Elvin Newbill PA-C Work Phone: [facility] 09-18-2023 12:02-0500 Diastolic blood pressure 75 mm[Hg] Elvin Newbill PA-C Work Phone: [facility] 09-18-2023 12:02-0500 Heart rate 63 /min Elvin Newbill PA-C Work Phone: [facility] 09-18-2023 12:02-0500 SaO2% (BldA) [Mass fraction] 95 % Elvin Newbill PA-C Work Phone: [facility] 09-18-2023 12:02-0500 Systolic blood pressure 188 mm[Hg] Elvin Newbill PA-C Work Phone: [facility] 09-06-2023 16:00-0500 Heart rate 57 /min JHONNY VALENCIA MD [facility] 09-06-2023 14:28-0500 Body temperature 98.06 [degF] JHONNY VALENCIA MD [facility] 09-06-2023 14:28-0500 Diastolic Blood Pressure Non-Invasive 64 mm[Hg] JHONNY VALENCAI MD [facility] 09-06-2023 14:28-0500 Heart rate 60 /min JHONNY VALENCIA MD [facility] 09-06-2023 14:28-0500 Reason For Taking VItal Signs JHONNY VALENCIA MD [facility] 09-06-2023 14:28-0500 Respiratory rate 18 /min JHONNY VALENCIA MD [facility] 09-06-2023 14:28-0500 Systolic Blood Pressure Non-Invasive 138 mm[Hg] JHONNY VALENCIA MD [facility] 09-06-2023 12:38-0500 Heart rate 69 /min JHONNY VALENCIA MD [facility] 09-06-2023 12:38-0500 Respiratory rate 20 /min JHONNY VALENCIA MD [facility] 09-06-2023 11:05-0500 Blood Pressure Method JHONNY VALENCIA MD [facility] 09-06-2023 11:05-0500 Body temperature 97.88 [degF] JHONNY VALENCIA MD [facility] 09-06-2023 11:05-0500 Diastolic Blood Pressure Non-Invasive 76 mm[Hg] JHONNY VALENCIA MD [facility] 09-06-2023 11:05-0500 Heart rate 60 /min JHONNY VALENCIA MD [facility] 09-06-2023 11:05-0500 Respiratory rate 20 /min JHONNY VALENCIA MD [facility] 09-06-2023 11:05-0500 Systolic Blood Pressure Non-Invasive 138 mm[Hg] JHONNY VALENCIA MD [facility] 09-06-2023 08:50-0500 Heart rate 66 /min JHONNY VALENCIA MD [facility] 09-06-2023 08:45-0500 Blood Pressure Cuff Size JHONNY VALENCIA MD [facility] 09-06-2023 08:45-0500 Blood Pressure Location JHONNY VALENCIA MD [facility] 09-06-2023 08:45-0500 Blood Pressure Method JHONNY VALENCIA MD [facility] 09-06-2023 08:45-0500 Diastolic Blood Pressure Non-Invasive 74 mm[Hg] JHONNY VALENCIA MD [facility] 09-06-2023 08:45-0500 Systolic Blood Pressure Non-Invasive 136 mm[Hg] JHONNY VALENCIA MD [facility] 09-06-2023 07:18-0500 Blood Pressure Cuff Size JHONNY VALENCIA MD [facility] 09-06-2023 07:18-0500 Blood Pressure Location JHONNY VALENCIA MD [facility] 09-06-2023 07:18-0500 Blood Pressure Method JHONNY VALENCIA MD [facility] 09-06-2023 07:18-0500 Body temperature 97.88 [degF] JHONNY VALENCIA MD [facility] 09-06-2023 06:37-0500 Heart rate 62 /min JHONNY VALENCIA MD [facility] 09-06-2023 04:19-0500 Blood Pressure Location JHONNY VALENCIA MD [facility] 09-05-2023 23:52-0500 Blood Pressure Cuff Size JHONNY VALENCIA MD [facility] 09-05-2023 18:31-0500 Heart rate 63 /min JHONNY VALENCIA MD [facility] 09-05-2023 09:21-0500 Heart rate 78 /min JHONNY VALENCIA MD [facility] 09-05-2023 06:56-0500 Mean blood pressure 93 mm[Hg] JHONNY VALENCIA MD [facility] 09-04-2023 16:41-0500 Heart rate 70 /min JHONNY VALENCIA MD [facility] 09-03-2023 17:31-0500 SaO2% (BldA) [Mass fraction] 94.0 % JHONNY VALENCIA MD [facility] 09-03-2023 16:26-0500 Mean blood pressure 95 mm[Hg] JHONNY VALENCIA MD [facility] 09-03-2023 15:31-0500 Mean blood pressure 95 mm[Hg] JHONNY VALENCIA MD [facility] 09-03-2023 09:08-0500 Body height 157.5 cm JHONNY VALENCIA MD [facility] 09-03-2023 09:08-0500 Body weight 45.9 kg JHONNY VALENCIA MD [facility] 09-03-2023 09:08-0500 Body weight 18.5 kg/m2 JHONNY VALENCIA MD [facility] 09-03-2023 07:10-0500 SaO2% (BldA) [Mass fraction] 96.7 % JHONNY VALENCIA MD [facility] 09-02-2023 07:27-0500 SaO2% (BldA) [Mass fraction] 98.7 % JHONNY VALENCIA MD [facility] 01-26-2017 08:20-0400 BMI (Body Mass Index) 20.77 kg/m2 Rashidumi DeFinis [facility] Work Phone: 01-26-2017 08:20-0400 Body Temperature 97.8 [degF] Harumi DeFinis [facility] Work Phone: 01-26-2017 08:20-0400 BP Diastolic 65 mm[Hg] Harumi DeFinis [facility] Work Phone: 01-26-2017 08:20-0400 BP Systolic 125 mm[Hg] Harumi DeFinis [facility] Work Phone: 01-26-2017 08:20-0400 Height 162.56 cm Harumi DeFinis [facility] Work Phone: 01-26-2017 08:20-0400 Pulse [...] Start: 08-26-2025 ambulatory Alfonso Ozuna NP Facility :[facility] Start: 07-26-2025 End: 08-02-2025 ambulatory NANCY PAREDES [facility] Start: 07-26-2025 Dr. Kendall Doran MD -[facility] Start: 07-26-2025 Dr. Renee Encarnacion MD - [facility] Work Phone: Start: 07-25-2025 Dr. Renee Encarnacion MD - [facility] Work Phone: Start: 07-24-2025 Dr. Renee Encarnacion MD - [facility] Work Phone: Start: 07-23-2025 Dr. Renee Encarnacion MD - [facility] Work Phone: Start: 07-23-2025 Dr. Eleazar Valle DO -[facility] Start: 07-22-2025 Apple Carvalho RN VASCULAR- -[facility] Start: 07-22-2025 Dr. Renee Encarnacion MD - [facility] Work Phone: Start: 07-22-2025 Dr. Eleazar Valle DO -[facility] Start: 07-21-2025 Dr. Renee Encarnacion MD - [facility] Work Phone: Start: 07-21-2025 Dr. Eleazar Valle DO -[facility] Start: 07-20-2025 Dr. [facility]ard Sesay [facility] Work Phone: Start: 07-19-2025 Dr. Gerard Santos DO -[facility] Work Phone: Start: 07-18-2025 Dr. Gerard Santos DO -[facility] Work Phone: Start: 07-17-2025 Dr. Eleazar Valle DO -[facility] Start: 07-16-2025 ambulatory Alfonso Ozuna RN VASCULAR Facility :[facility] Start: 07-16-2025 ambulatory Jack Yan ty:[facility] Start: 07-16-2025 End: 07-26-2025 Evaluation and management of inpatient Alfonso Ozuna RN VASCULAR-C Work Phone: -Intensive Care Unit Start: 07-16-2025 End: 07-26-2025 [facility]. [facility] Work Phone: Start: 07-02-2025 End: 08-06-2025 ambulatory CLAUDE PAREDES [facility] Start: 06-16-2025 End: 06-25-2025 Evaluation and management of inpatient JHONNY VALENCIA MD [facility] Start: 06-16-2025 End: 06-16-2025 Emergency department patient visit JACK MYERS [facility] Start: 03-12-2025 ambulatory ASTRID PAREDES [facility] Start: 03-07-2025 End: 03-07-[address] [facility] Start: 11-10-2024 End: 11-17-2024 ambulatory [facility]ANC[facility]ED[facility] Start: 11-04-2024 End: 11-09-2024 Evaluation and management of inpatient JHONNY VALENCIA MD [facility] Start: 11-04-2024 End: 11-04-2024 Emergency department patient visit ALFONSO OZUNA [facility] Start: 10-21-2024 End: 10-23-2024 ambulatory KRYSTIAN STEELE [facility] Start: 10-09-2024 End: 10-10-2024 Emergency department patient visit JOSS ARMANDO [facility] Start: 10-03-2024 End: 10-06-2024 Evaluation and management of inpatient ALFONSO OZUNA [facility] Start: 10-03-2024 End: 10-03-2024 ambulatory [facility] Start: 10-03-2024 End: 10-03-2024 Encounter for general adult medical examination without abnormal findings [facility] Start: 10-03-2024 End: 10-03-2024 Office outpatient visit 25 minutes Kenzie B [facility] RHINOLOGIST-ENVIRONMENTAL ATTORNEY Work Phone: [facility] Comment on above: Primary hypertension (Primary Dx); Congestive heart failure, unspecified HF chronicity, unspecified heart failure type; 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, unspecified vessel or lesion type; Chronic obstructive pulmonary disease, unspecified COPD type (Multi); Health maintenance examination Start: 10-03-2024 End: 10-03-2024 Patient encounter status Kenzie Sidney [facility] RHINOLOGIST-ENVIRONMENTAL ATTORNEY Work Phone: [facility] Work Phone: Start: 09-18-2023 End: 09-18-2023 Office outpatient new 45 minutes Elvin Blanc PA-C Work Phone: [facility] Comment on above: Chronic obstructive pulmonary disease, unspecified COPD type (CMS/HCC) (Primary Dx); 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, unspecified vessel or lesion type (CMS/HCC); Primary hypertension; Congestive heart failure, unspecified HF chronicity, unspecified heart failure type (CMS/HCC) Start: 09-02-2023 ambulatory JACK Tian ty:[facility] Start: 09-02-2023 End: 09-06-2023 Evaluation and management of inpatient DO FERCHO VILLASEÑOR Facility:[facility] Start: 09-02-2023 End: 09-06-2023 Evaluation and management of inpatient JHONNY VALENCIA MD [facility] Start: 09-02-2023 ambulatory JACK Renee AMOL Cobosi ty:[facility] Start: 06-16-2021 Preoperative state Alfonso Laith RN VASCULAR-C Work Phone: [facility] Procedures Date Procedure Procedure Detail Performing Clinician Start: 07-26-2025 Estimated creatinine clearance Alfonso Laith RN VASCULAR-C Work Phone: Start: 07-26-2025 Mean corpuscular hem oglobin concentration determination Alfonso Laith RN VASCULAR-C Work Phone: Start: 07-26-2025 Neutrophil count Alfonso Laith RN VASCULAR-C Work Phone: Start: 07-26-2025 Nucleated red blood cell count procedure Alfonso Laith RN VASCULAR-C Work Phone: Start: 07-26-2025 Platelet mean volume determination Alfonso Laith RN VASCULAR-C Work Phone: Start: 07-25-2025 CT angiography of ch est with contrast Alfonso Laith RN VASCULAR-C Work Phone: Start: 07-25-2025 D-dimer assay, quantitative Alfonso Laith RN VASCULAR-C Work Phone: Start: 07-22-2025 Videoswallow Alfonso de leon RN VASCULAR-C Work Phone: Start: 07-22-2025 Blood count smear mc rscp w/mnl difrntl wbc count Alfonso Laith RN VASCULAR-C Work Phone: Start: 07-22-2025 Estimated creatinine clearance Alfonso Laith RN VASCULAR-C Work Phone: Start: 07-22-2025 Mean corpuscular hem oglobin concentration determination Alfonso Laith RN VASCULAR-C Work Phone: Start: 07-22-2025 Nucleated red blood cell count procedure Alfonso Laith RN VASCULAR-C Work Phone: Start: 07-22-2025 Platelet mean volume determination Alfonso Ozuna RN VASCULAR-C Work Phone: Start: 07-19-2025 Plain chest X-ray Alfonso Ozuna RN VASCULAR-C Work Phone: Start: 07-19-2025 Carbon dioxide measu rement, partial pressure Alfonso Ozuna RN VASCULAR-C Work Phone: Start: 07-19-2025 Gases blood o2 satur ation only direct erik Alfonso Ozuna RN VASCULAR-C Work Phone: Start: 07-19-2025 Measurement of parti al pressure of oxygen in blood Alfonso Ozuna RN VASCULAR-C Work Phone: Start: 07-19-2025 Oxygen measurement Watson Ozuna RN VASCULAR-C Work Phone: Start: 07-19-2025 Oxygen saturation measurement Alfonso Ozuna RN VASCULAR-C Work Phone: Start: 07-18-2025 Hepatitis A virus an tibody, IgM type Alfonso Laith RN VASCULAR-C Work Phone: Start: 07-18-2025 Hepatitis B core ant ibody measurement, IgM type Alfonso Laith RN VASCULAR-C Work Phone: Start: 07-18-2025 Hepatitis C antibody measurement Alfonso Laith RN VASCULAR-C Work Phone: Start: 07-18-2025 Serum inorganic phos phate measurement Alfonso Laith RN VASCULAR-C Work Phone: Start: 07-17-2025 Plain chest X-ray Alfonso Ozuna RN VASCULAR-C Work Phone: Start: 07-16-2025 Bacterial nucleic acid assay Alfonso Laith RN VASCULAR-C Work Phone: Start: 07-16-2025 Blood culture Alfonso grijalva RN VASCULAR-C Work Phone: Start: 07-16-2025 Gram stain microscopy D mariusz Ozuna RN VASCULAR-C Work Phone: Start: 07-16-2025 Legionella pneumophi la antigen assay Alfonso Ozuna RN VASCULAR-C Work Phone: Start: 07-16-2025 Nucleic acid assay Watson Ozuna RN VASCULAR-C Work Phone: Start: 07-16-2025 Respiratory microbia l culture Alfonso Ozuna RN VASCULAR-C Work Phone: Start: 07-16-2025 End: 07-16-2025 Streptococcus pneumoniae antigen assay Alfonso Ozuna RN VASCULAR-C Work Phone: Start: 07-16-2025 Urine culture Alfonso Barclay is RN VASCULAR-C Work Phone: Start: 07-16-2025 Alfonso Rm s RN VASCULAR-C Work Phone: Start: 07-16-2025 Plain chest X-ray Alfonso Ozuna RN VASCULAR-C Work Phone: Start: 07-16-2025 Assay of lactate Alfonso Ozuna RN VASCULAR-C Work Phone: Start: 07-16-2025 Lactic acid measurement Alfonso Laith RN VASCULAR-C Work Phone: Start: 07-16-2025 Urine microscopy: red cells Alfonso Ozuna RN VASCULAR-C Work Phone: Start: 07-16-2025 Urnls dip stick/tabl et reagent auto microscopy Alfonso Ozuna RN VASCULAR-C Work Phone: Start: 07-16-2025 CT of abdomen and pe lvis without contrast Alfonso Ozuna RN VASCULAR-C Work Phone: Start: 07-16-2025 Assay of triglycerides Alfonso Ozuna RN VASCULAR-C Work Phone: Start: 07-16-2025 Total cholesterol:HD L ratio measurement Alfonso Ozuna RN VASCULAR-C Work Phone: Start: 07-16-2025 Triglycerides measurement Alfonso Laith RN VASCULAR-C Work Phone: Start: 07-16-2025 CT angiography of ch est with contrast Alfonso Ozuna RN VASCULAR-C Work Phone: Start: 07-16-2025 CT of head without contrast Alfonso KOHLI Work Phone: Start: 06-16-2025 Urinalysis ALFONSO De Leon Comment on above: Result Comment: URIN ALYSIS Performed By: #### [id number] ####[facility],[address] [place] [id number] Start: 11-04-2024 Urinalysis ALFONSO De Leon Comment on above: Result Comment: URIN ALYSIS Performed By: #### [id number] ####[facility],[address] [place] [id number] Start: 09-04-2023 Echocardiography JHONNY VALENCIA MD Start: [...] dated 06/16/21 H/O: hysterectomy Alfonso de leon RN VASCULAR-C Work Phone: History of percutane ous transluminal coronary angioplasty JHONNY VALENCIA MD Plan of Treatment Date Care Activity Detail Author Start: 2029 RSV High Risk: (Elderly (60+) or Population) (1 - 1-dose 75+ series) RSV High Risk: (Elderly (60+) or Population) (1 - 1-dose 75+ series) [facility] Start: 07-26-2025 Patient discharge [facility] Start: 07-25-2025 Referral to engineering and scientific programmer [facility] Start: 07-25-2025 [facility] Start: 07-24-2025 Referral to gastroenterology service [facility] Start: 07-23-2025 Care planning and problem solving actions [facility] Start: 07-23-2025 Inhalation therapy procedure [facility] Start: 07-22-2025 Referral to service [facility] Start: 07-22-2025 Palliative care [facility] Start: 07-21-2025 End: 07-22-2025 [facility] Start: 07-21-2025 Oxygen therapy [facility] Start: 07-21-2025 Incentive spirometry [facility] Start: 07-21-2025 Speech therapy assessment [facility] Start: 07-21-2025 Referral for physical therapy [facility] Start: 07-21-2025 Referral to occupational therapist [facility] Start: 07-20-2025 [facility] Start: 07-18-2025 End: 07-19-2025 [facility] Start: 07-18-2025 Following clinical pathway protocol [facility] Start: 07-17-2025 End: 07-18-2025 [facility] Start: 07-17-2025 Referral to service [facility] Start: 07-16-2025 End: 07-17-2025 [facility] Start: 07-16-2025 Methicillin resistant Staphylococcus aureus screening test [facility] Start: 07-16-2025 Following clinical pathway protocol [facility] Start: 07-16-2025 Cardiac monitoring [facility] Start: 07-16-2025 Care regimes management [facility] Start: 07-16-2025 Catheterization of vein [facility] Start: 07-16-2025 Consultation [facility] Start: 07-16-2025 Continuous pulse oximetry [facility] Start: 07-16-2025 Notification of physician [facility] Start: 07-16-2025 Vital signs measurements [facility] Start: 07-16-2025 Verification routine [facility] Start: 07-16-2025 Admission procedure [facility] Start: 07-16-2025 Patient referral to dietitian [facility] Start: 10-03-2024 End: 10-03-2025 CBC W Auto Differential panel - Blood CBC and Auto Differential Lab Routine 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, unspecified vessel or lesion type (Multi) Expected: 10/03/2024 (Approximate), Expires: 10/03/2025 [facility] Work Phone: Comment on above: Expected: 10/03/2024 (Approximate), Expi res: 10/03/2025 Start: 10-03-2024 End: 10-03-2025 Comprehensive metabolic 2000 panel - Serum or Plasma Comprehensive Metabolic Panel Lab Routine Primary hypertension Expected: 10/03/2024 (Approximate), Expires: 10/03/2025 [facility] Work Phone: Comment on above: Expected: 10/03/2024 (Approximate), Expi res: 10/03/2025 Start: 10-03-2024 End: 10-03-2025 Lipid 1996 panel - Serum or Plasma Lipid Panel Lab Routine Health maintenance examination Expected: 10/03/2024 (Approximate), Expires: 10/03/2025 [facility] Work Phone: Comment on above: Expected: 10/03/2024 (Approximate), Expi res: 10/03/2025 Start: 10-03-2024 End: 10-03-2025 TSH with reflex to Free T4 if abnormal TSH with reflex to Free T4 if abnormal Lab Routine Health maintenance examination Expected: 10/03/2024 (Approximate), Expires: 10/03/2025 [facility] Work Phone: Comment on above: Expected: 10/03/2024 (Approximate), Expi res: 10/03/2025 Start: 10-03-2024 End: 10-03-2025 Heart Transthoracic Transthoracic Echo (TTE) Complete Echocardiography Routine Primary hypertension Congestive heart failure, unspecified HF chronicity, unspecified heart failure type (Multi) 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, unspecified vessel or lesion type (Multi) Expected: 10/03/2024, Expires: 10/03/2025 [facility] Service Area Work Phone: Comment on above: Expected: 10/03/2024, Expires: Start: 09-18-2024 End: 09-18-2024 Patient encounter procedure 09/18/2024 11:30 AM EST Office Visit [facility] [address] [place] [id number] Elvin Blanc PA-C [address] [facility] [place] [address] [facility] Start: 06-23-2024 COVID-19 Vaccine ( season) COVID-19 Vaccine ( season) [facility] Start: 06-23-2024 Influenza vaccination Influenza Vaccine (#1) [facility] Start: 09-18-2023 End: 09-18-2024 CBC panel - Blood by Automated count CBC Lab Routine Chronic obstructive pulmonary disease, unspecified COPD type (CMS/HCC) 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, unspecified vessel or lesion type (CMS/HCC) Primary hypertension Congestive heart failure, unspecified HF chronicity, unspecified heart failure type (CMS/HCC) Expected: 09/18/2023 (Approximate), Expires: 09/18/2024 [facility] Service Area Work Phone: Comment on above: Expected: 09/18/2023 (Approximate), Expi res: 09/18/2024 Start: 09-18-2023 End: 09-18-2024 Comprehensive metabolic 2000 panel - Serum or Plasma Comprehensive Metabolic Panel Lab Routine Chronic obstructive pulmonary disease, unspecified COPD type (CMS/HCC) 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, unspecified vessel or lesion type (CMS/HCC) Primary hypertension Congestive heart failure, unspecified HF chronicity, unspecified heart failure type (CMS/HCC) Expected: 09/18/2023 (Approximate), Expires: 09/18/2024 [facility] Work Phone: Comment on above: Expected: 09/18/2023 (Approximate), Expi res: 09/18/2024 Start: 09-18-2023 End: 09-18-2024 Lipid 1996 panel - Serum or Plasma Lipid Panel Lab Routine Chronic obstructive pulmonary disease, unspecified COPD type (CMS/HCC) 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, unspecified vessel or lesion type (CMS/HCC) Primary hypertension Congestive heart failure, unspecified HF chronicity, unspecified heart failure type (CMS/HCC) Expected: 09/18/2023 (Approximate), Expires: 09/18/2024 [facility] Work Phone: Comment on above: Expected: 09/18/2023 (Approximate), Expi res: 09/18/2024 Start: 09-18-2023 End: 09-18-2024 TSH with reflex to Free T4 if abnormal TSH with reflex to Free T4 if abnormal Lab Routine Chronic obstructive pulmonary disease, unspecified COPD type (CMS/HCC) 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, unspecified vessel or lesion type (CMS/HCC) Primary hypertension Congestive heart failure, unspecified HF chronicity, unspecified heart failure type (CMS/HCC) Expected: 09/18/2023 (Approximate), Expires: 09/18/2024 [facility] Work Phone: Comment on above: Expected: 09/18/2023 (Approximate), Expi res: 09/18/2024 Start: 06-23-2023 Influenza vaccination Influenza Vaccine (#1) [facility] Start: 12-06-2021 COVID-19 Vaccine (2 - Moderna series) COVID-19 Vaccine (2 - Moderna series) [facility] Start: 04-17-2017 End: 04-17-2017 Appointment Appointment [employer] Work Phone: Start: 01-26-2017 End: 01-26-2017 CT Ldct scan for lung cancer screening CT Ldct scan for lung cancer screening [facility] Work Phone: Start: 01-26-2017 End: 01-26-2017 DMB DMB [facility] Work Phone: Start: 01-26-2017 End: 01-26-2017 Follow Up Appt 6 weeks Follow Up Appt 6 weeks [facility] [employer] Phone: Start: 01-26-2017 End: 01-26-2017 Pulmonary Function Test - complete Pulmonary Function Test - complete [facility] Work Phone: Start: 01-26-2017 End: 01-26-2017 Pulmonary stress test/simple Pulmonary stress testing; simple (eg, 6-minute walk) [facility] Work Phone: Start: 01-12-2017 End: 04-03-2017 Cardiac Rehab [facility] [address] [place], [address] [facility] Work Phone: Start: 01-12-2017 End: 01-12-2017 Cardiovascular stress test using treadmill Treadmill stress test (no imaging) [facility] Work Phone: Start: 01-12-2017 End: 03-24-2017 Electrocardiogram, complete EKG (In office) [facility] Work Phone: Start: 01-12-2017 End: 01-12-2017 Follow Up Appt 3 months Follow Up Appt 3 months [facility] Work Phone: Start: 01-12-2017 End: 01-12-2017 MMM MMM [facility] Work Phone: Start: 02-23-2004 Zoster Vaccines (1 of 2) Zoster Vaccines (1 of 2) [facility] Start: 1994 Screening for malignant neoplasm of breast Mammogram [facility] Start: 02-23-1976 DTaP/Tdap/Td Vaccines (1 - Tdap) DTaP/Tdap/Td Vaccines (1 - Tdap) [facility] Start: 02-23-1972 Hepatitis C screening Hepatitis C Screening [facility] Start: 1954 Lipid panel Lipid Panel [facility] Start: 1954 Medicare Annual Wellness Visit Medicare Annual Wellness Visit (AWV) [facility] Start: 1954 Screening for malignant neoplasm of colon [facility] Start: 1954 Screening for osteoporosis Bone Density Scan [facility] Anion gap in Serum o r Plasma [facility] Anion gap in Serum o r Plasma [facility] Anion gap in Serum o r Plasma [facility] Anion gap in Serum o r Plasma [facility] Anion gap in Serum o r Plasma [facility] Anion gap in Serum o r Plasma [facility] Anion gap in Serum o r Plasma [facility] BUN/Creatinine ratio [facility] BUN/Creatinine ratio [facility] BUN/Creatinine ratio [facility] BUN/Creatinine ratio [facility] BUN/Creatinine ratio [facility] BUN/Creatinine ratio [facility] BUN/Creatinine ratio [facility] Calcium [Mass/volume ] in Serum or Plasma [facility] Calcium [Mass/volume ] in Serum or Plasma [facility] Calcium [Mass/volume ] in Serum or Plasma [facility] Calcium [Mass/volume ] in Serum or Plasma [facility] Calcium [Mass/volume ] in Serum or Plasma [facility] Calcium [Mass/volume ] in Serum or Plasma [facility] Calcium [Mass/volume ] in Serum or Plasma [facility] Carbon dioxide, tota l [Moles/volume] in Central venous blood [facility] Carbon dioxide, tota l [Moles/volume] in Central venous blood [facility] Carbon dioxide, tota l [Moles/volume] in Central venous blood [facility] Carbon dioxide, tota l [Moles/volume] in Central venous blood [facility] Carbon dioxide, tota l [Moles/volume] in Central venous blood [facility] Carbon dioxide, tota l [Moles/volume] in Central venous blood [facility] Carbon dioxide, tota l [Moles/volume] in Central venous blood [facility] Creatinine [Mass/vol ume] in Serum or Plasma [facility] Creatinine [Mass/vol ume] in Serum or Plasma [facility] Creatinine [Mass/vol ume] in Serum or Plasma [facility] Creatinine [Mass/vol ume] in Serum or Plasma [facility] Creatinine [Mass/vol ume] in Serum or Plasma [facility] Creatinine [Mass/vol ume] in Serum or Plasma [facility] Creatinine [Mass/vol ume] in Serum or Plasma [facility] Erythrocyte mean corpuscular volume determination [facility] Erythrocyte mean corpuscular volume determination [facility] Erythrocyte mean corpuscular volume determination [facility] Erythrocyte mean corpuscular volume determination [facility] Erythrocyte mean corpuscular volume determination [facility] Erythrocyte mean corpuscular volume determination [facility] Erythrocyte mean corpuscular volume determination [facility] Glucose [Mass/volume ] in Serum or Plasma [facility] Glucose [Mass/volume ] in Serum or Plasma [facility] Glucose [Mass/volume ] in Serum or Plasma [facility] Glucose [Mass/volume ] in Serum or Plasma [facility] Glucose [Mass/volume ] in Serum or Plasma [facility] Glucose [Mass/volume ] in Serum or Plasma [facility] Glucose [Mass/volume ] in Serum or Plasma [facility] Hematocrit [Volume Fraction] of Blood [facility] Hematocrit [Volume Fraction] of Blood [facility] Hematocrit [Volume Fraction] of Blood [facility] Hematocrit [Volume Fraction] of Blood [facility] Hematocrit [Volume Fraction] of Blood [facility] Hematocrit [Volume Fraction] of Blood [facility] Hematocrit [Volume Fraction] of Blood [facility] Hemoglobin [Mass/vol ume] in Blood [facility] Hemoglobin [Mass/vol ume] in Blood [facility] Hemoglobin [Mass/vol ume] in Blood [facility] Hemoglobin [Mass/vol ume] in Blood [facility] Hemoglobin [Mass/vol ume] in Blood [facility] Hemoglobin [Mass/vol ume] in Blood [facility] Hemoglobin [Mass/vol ume] in Blood [facility] Leukocytes [#/volume ] in Blood [facility] Leukocytes [#/volume ] in Blood [facility] Leukocytes [#/volume ] in Blood [facility] Leukocytes [#/volume ] in Blood [facility] Leukocytes [#/volume ] in Blood [facility] Leukocytes [#/volume ] in Blood [facility] Leukocytes [#/volume ] in Blood [facility] Mean corpuscular hemoglobin concentration determination [facility] Mean corpuscular hemoglobin concentration determination [facility] Mean corpuscular hemoglobin concentration determination [facility] Mean corpuscular hemoglobin concentration determination [facility] Mean corpuscular hemoglobin concentration determination [facility] Mean corpuscular hemoglobin concentration determination [facility] Mean corpuscular hemoglobin concentration determination [facility] Mean corpuscular hemoglobin determination [facility] Mean corpuscular hemoglobin determination [facility] Mean corpuscular hemoglobin determination [facility] Mean corpuscular hemoglobin determination [facility] Mean corpuscular hemoglobin determination [facility] Mean corpuscular hemoglobin determination [facility] Mean corpuscular hemoglobin determination [facility] Measurement of renal function [facility] Measurement of renal function [facility] Measurement of renal function [facility] Measurement of renal function [facility] Measurement of renal function [facility] Measurement of renal function [facility] Measurement of renal function [facility] Neutrophil count [facility] Neutrophil count [facility] Neutrophil count [facility] Neutrophil count [facility] Neutrophil count [facility] Neutrophil count [facility] Neutrophil count [facility] Neutrophil percent differential count [facility] Neutrophil percent differential count [facility] Neutrophil percent differential count [facility] Neutrophil percent differential count [facility] Neutrophil percent differential count [facility] Neutrophil percent differential count [facility] Neutrophil percent differential count [facility] Patient Education [facility] Work Phone: Platelets [#/volume] in Blood [facility] Platelets [#/volume] in Blood [facility] Platelets [#/volume] in Blood [facility] Platelets [#/volume] in Blood [facility] Platelets [#/volume] in Blood [facility] Platelets [#/volume] in Blood [facility] Platelets [#/volume] in Blood [facility] Potassium measurement [facility] Potassium measurement [facility] Potassium measurement [facility] Potassium measurement [facility] Potassium measurement [facility] Potassium measurement [facility] Potassium measurement [facility] Red blood cell count [facility] Red blood cell count [facility] Red blood cell count [facility] Red blood cell count [facility] Red blood cell count [facility] Red blood cell count [facility] Red blood cell count [facility] Red cell distributio n width determination [facility] Red cell distributio n width determination [facility] Red cell distributio n width determination [facility] Red cell distributio n width determination [facility] Red cell distributio n width determination [facility] Red cell distributio n width determination [facility] Red cell distributio n width determination [facility] Serum chloride measurement [facility] Serum chloride measurement [facility] Serum chloride measurement [facility] Serum chloride measurement [facility] Serum chloride measurement [facility] Serum chloride measurement [facility] Serum chloride measurement [facility] Sodium measurement [facility] Sodium measurement [facility] Sodium measurement [facility] Sodium measurement [facility] Sodium measurement [facility] Sodium measurement [facility] Sodium measurement [facility] Urea nitrogen [Mass/volume] in Serum or Plasma [facility] Urea nitrogen [Mass/volume] in Serum or Plasma [facility] Urea nitrogen [Mass/volume] in Serum or Plasma [facility] Urea nitrogen [Mass/volume] in Serum or Plasma [facility] Urea nitrogen [Mass/volume] in Serum or Plasma [facility] Urea nitrogen [Mass/volume] in Serum or Plasma [facility] Urea nitrogen [Mass/volume] in Serum or Plasma [facility] Immunizations Immunization Date Immunization Notes Care Provider [facility] 11-09-2024 Seasonal trivalent influenza vaccine, adjuvanted, preservative free JHONNY VALENCIA MD [facility] 10-11-2021 SARS-CoV-2 (COVID-19 ) [id number] vaccine JHONNY VALENCIA MD [facility] 11-05-2020 pneumococcal conjuga te vaccine, 13 valraoul VALENCIA MD [facility] 11-05-2020 influenza virus vacc ine, unspecified formulation Elvin Blanc PA-C Work Phone: [facility] 09-23-2019 pneumococcal polysaccharide vaccine, 23 valent JHONNY VALENCIA MD [facility] Payers Date Payer Category Payer Self-pay [id number] 2025 Private Health Insurance [id number] 2024 Private Health Insurance [id number] 2024 Medicare supplementa l policy (as second payer) AARP [id number] 2024 Unknown [id number] 2024 Medicare (Managed Care) [employer] [place] [place] [id number] 2024 Medicare [id number] 2023 Medicare [id number] 2023 Medicare [id number] 2023 Unknown [id number] 2023 Unknown [employer] [facility] [employer] [facility] [id number] 2023-Present [address] [place] [address] [id number] 1954 Unknown [id number] 2.16.840.1.685847.3.579.2 .627 1954 Unknown [id number] 2.16.840.1.960975.3.579.2 .627 1954 Unknown [id number] 2.16.840.1.338996.3.579.2 .627 1954 Unknown [id number] 2.16.840.1.873804.3.579.2 .1244 1954 Unknown [id number] 2.16.840.1.217731.3.579.2 .651 1954 Unknown [id number] 2.16.840.1.208184.3.579.2 .651 1954 Unknown [id number] 2.16.840.1.930227.3.579.2 .651 1954 Unknown [id number] 2.16.840.1.142614.3.579.2 .651 1954 Unknown [id number] 2.16.840.1.628329.3.579.2 .651 1954 Unknown [id number] 2.16.840.1.466545.3.579.2 .651 1954 Unknown [id number] 2.16.840.1.971754.3.579.2 .651 1954 Unknown [id number] 2.16.840.1.845076.3.579.2 .651 1954 Unknown [id number] 2.16.840.1.814544.3.579.2 .65 1954 Unknown [id number] 2.16.840.1.517084.3.579.2 .65 1954 Unknown [id number] 2.16.840.1.091951.3.579.2 .651 Unknown [id number] 2.16840.1.731202.3.579.2 .462 Unknown [id number] 2.16840.1.045453.3.579.2 .462 Unknown [id number] 2.16840.1.166085.3.579.2 .462 Unknown [id number] 2.840.1.166182.3.579.2 .462 Unknown [id number] 2.16840.1.202181.3.579.2 .462 Unknown [id number] 2.16840.1.163524.3.579.2 .462 Unknown [id number] 2.16840.1.636515.3.579.2 .462 Unknown [id number] 2.16840.1.712731.3.579.2 .462 Unknown [id number] 2.16840.1.634352.3.579.2 .462 Unknown [id number] 2.16.840.1.107390.3.579.2 .462 Unknown [id number] 2.16.840.1.322608.3.579.2 .462 Unknown [id number] 2.16.840.1.779117.3.579.2 .462 Unknown [id number] 2.16.840.1.450521.3.579.2 .462 Unknown [id number] 2.16840.1.404463.3.579.2 .462 Unknown [id number] 2.16.840.1.973182.3.579.2 .462 Unknown [id number] 2.16.840.1.327480.3.579.2 .462 Unknown [id number] 2.16.840.1.317728.3.579.2 .462 Unknown [id number] 2.16.840.1.843611.3.579.2 .462 Unknown [id number] 2.16.840.1.713034.3.579.2 .462 Unknown [id number] 2.16.840.1.711631.3.579.2 .462 Unknown [id number] 2.16.840.1.375703.3.579.2 .462 Unknown [id number] 2.16.840.1.986409.3.579.2 .462 Social History Date Type Detail Facility Tobacco smoking status [facility] Start: 09-18-2023 End: 07-21-2025 Tobacco smoking status SDIS Smokes tobacco daily [facility] Work Phone: History of tobacco use Cigarette Smoker [facility] Work Phone: Start: 09-18-2023 Tobacco use and exposure Smokeless tobacco non-user [facility] Work Phone: Start: 09-18-2023 End: 10-03-2024 Alcohol intake Lifetime non-drinker (finding) [facility] Work Phone: Start: 09-18-2023 History of Social function [facility] Work Phone: Start: 09-18-2023 Tobacco use panel [facility] [facility] Work Phone: Start: 1955 Sex Assigned At Not on file [facility] Work Phone: Start: 09-08-2023 End: 10-03-2024 Exposure to SARS-CoV-2 (event) Not sure [facility] Start: 2024 Tobacco smoking status Light tobacco smoker (finding) [facility] Tobacco smoking status Heavy tobacco smoker (finding) [facility] Start: 06-18-2011 Sex Female (finding) [facility] Start: 1955 Sex Assigned At Female W [facility] Goals Date Patient Goal Desired Activity /State Functional Status Date Assessment Result Facility 07-26-2025 Functional status Ambulates [facility] Work Phone: 07-23-2025 Functional status Chair [facility] Work Phone: 11-09-2024 Functional Status Room check performed [facility] 11-09-2024 Functional Status [facility] 11-09-2024 Functional Status [facility] 11-09-2024 Functional Status 3am-7am [facility] 11-09-2024 Functional Status [facility] 11-09-2024 Functional Status Independent [facility] 11-08-2024 Functional Status Activity Josué tance Independent [facility] 11-08-2024 Functional Status [facility] 11-08-2024 Functional Status Dinner Percent 100 [facility] 11-08-2024 Functional Status [facility] 11-08-2024 Functional Status bilateral knee high removed/off [facility] 11-07-2024 Functional Status [facility] 11-06-2024 Functional Status Min A [facility] 11-05-2024 Functional Status Special Call D evice Unable to use call device [facility] 11-05-2024 Functional Status [facility] 11-05-2024 Functional Status [facility] 11-05-2024 Functional Status NPO Status Maintained [facility] 11-05-2024 Functional Status Single level home [facility] 11-05-2024 Functional Status [facility] 11-05-2024 Functional Status [facility] 11-04-2024 Functional Status Sensory Deficits None [facility] 09-06-2023 Functional Status Room check performed [facility] 09-05-2023 Functional Status [facility] 09-05-2023 Functional Status Done [facility] 09-05-2023 Functional Status 90 [facility] 09-05-2023 Functional Status [facility] 09-04-2023 Functional Status Single level home [facility] 09-04-2023 Functional Status [facility] 09-04-2023 Functional Status Transparent silicone dr essing [facility] 09-04-2023 Functional Status [facility] 09-04-2023 Functional Status Ambulation Up with assi stance [facility] 09-03-2023 Functional Status [facility] 09-03-2023 Functional Status [facility] 09-03-2023 Functional Status [facility] 09-03-2023 Functional Status [facility] 09-03-2023 Functional Status [facility] 09-03-2023 Functional Status Maintained [facility] 09-03-2023 Functional Status [facility] 09-03-2023 Functional Status [facility] Mental Status Date Assessment Result Facility 07-26-2025 Cognitive function Voice/Name [facility] Work Phone: 07-23-2025 Cognitive function Voice/Name [facility] Work Phone: 11-09-2024 Mental Status [facility]ed x [facility] 11-09-2024 [facility] Status [facility] 11-08-[address] [facility] 11-07-[address] [facility] 09-06-2023 Mental Status Oriented x 4 [facility] 09-05-[address] Mental [address] [facility] Clinical Notes 09-02-2023 to 07-26-2025 Note Date & Type Note Facility 07-26-2025 Discharge summary Note Date/Time July 26, 2025 12:44pm [facility] Medical Records Department [address] [place] [address] Transfer to [facility] MR#: [id number] Acct: [id number] Name: ZABRINA HSU Rep #:[id number] : 1955 70 From: Renee Encarnacion MD PCP: SEUN Alvarez Status:ADM IN Certification of patient admission REQUIRED AT TIME OF ADMISSION. I CERTIFY THAT POST-HOSPITAL ECF SERVICES ARE REQUIRED TO BE GIVEN ON AN IN-PATIENT BASIS BECAUSE OF THE ABOVE NAMED PATIENT'S NEED FOR [facility] CARE ON A CONTINUING BASIS FOR THE [...] 75 mg PO DAILY OXYGEN - Supplemental ([facility] INFORM[facility] USE ONLY) Patient Comments: 2 LPM at all times Discontinued spironolactone 25 mg tablet 25 mg PO DAILY Referrals / Follow Up: Alfonso Ozuna NP, NP-C [Primary Care Provider, [facility]] - Within 1 Week Adriana Wiggins NP-C [Med Staff - [facility] Prof, Pulmonology] - 08/26/25 1:15 pm Disposition Disposition (needs filled in before D/C Order can be placed): Shelter Facility (2) Pneumonia Qualifiers: Pneumonia type: due to unspecified organism Laterality: bilateral Lung location: unspecified part of lung Qualified Code(s): J18.9 - Pneumonia, unspecified organism 07/26/25 1244 <Electronically signed by Renee Encarnacion MD> Cosigner Signature (if applicable): CC: RN VASCULAR-C Alfonso Ozuna; RN VASCULAR-C Earline Camargo; RN VASCULAR-C Apple Carvalho; RN VASCULAR-C Analy Davis; Dr. Mark Garrido MD; Dr. [...] Mau Hoover MD; Dr. Cathie Cantu MD; SHIELA Ellington; Danish Crawford DO ~ [facility] Work Phone: 1(411) 594-321610-04-2025 Discharge summary Author Renee [facility] Note Date/Time July 26, 2025 4: 01pm [facility] Medical Records Department [address] [place] [address] Discharge Summary 07/26/25 1244 MR#: [id number] Acct: [id number] Name: ZABRINA HSU Rep #:[id number] : 1955 70 From: Renee Encarnacion MD PCP: SEUN Alvarez Status:DIS IN Location: [place] [address] Providers Date of Admission: 07/16/25 Date of Discharge: 07/26/25 Primary Care Physician: SEUN Alvarez Consultations 07/16/25 07:56 Consult: [employer] Technician / Pulmonary Medicine Routine Consulting Provider: Intensivists/Pulmonary [...] Notification: Verbal Reason For Visit: AE COPD, [id number] RESP FAILURE Diagnosis Discharge Diagnosis (1) Acute [...] PO DAILY heart 07/17/25 OXYGEN - Supplemental ([facility] INFORM[facility] USE ONLY) COPD 07/18/25 [...] on her metoprolol. [facility]. She is follow-up with [...] % (Auto) 59.4, Lymph % (Auto) 27.0, Cloud % (Auto) 9.7, Eos % (Auto) 0.9, [...] disease of the thoracic aorta. Reading Location: [id number] D/C Instructions Discharge Activity: Return to Normal [...] 75 mg PO DAILY OXYGEN - Supplemental ([facility] INFORMATIONAL USE ONLY) Patient Comments: 2 LPM at all times Discontinued spironolactone 25 mg tablet 25 mg PO DAILY Referrals / Follow Up: Alfonso Ozuna NP RN VASCULAR-C [Primary Care Provider, [facility]] - Within 1 Week Adriana Wiggins NP-C [Med Staff - [facility] Prof, Pulmonology] - 08/26/25 1:15 pm Disposition Disposition (needs filled in before D/C Order can be placed): Shelter Facility Charges/Coding Visit Charges Inpatient E&M: 18613 Disch Hosp >30min 07/26/25 1719 <Electronically signed by Renee Encarnacion MD> Cosigner Signature (if applicable): CC: SEUN Ozuna; Dr. Renee Encarnacion MD~ Signed [facility] Work Phone: 1(958) 936-511010-04-2025 Hospital Discharge instructionsAdditional Instructions Date of Discharge: 07/26/25[facility] Work Phone: 1(137) 754-689810-04-2025 [facility]10-03-2025 Progress note [facility] Note Date/Time July 25, 2025 6: 48pm [facility] Medical Records Department [address] [place] [address] Progress Note 07/25/25 1515 MR#: [id number] Acct: [id number] Name: ZABRINA HSU Rep #:[id number] : 1955 70 From: Renee Encarnacion MD PCP: SEUN Alvarez Status:ADM IN Location: [place] [address] Subjective Subjective Patient seen and examined with her nurse by her bedside. She was lying comfortably in bed and had no active complaints. She had an uneventful night. Review of systems otherwise negative. She did get pre-CERT today and plan was to discharge her, but she became tachycardic with her HR going up to the 130 vad558l with movement. Discharge therefore canceled.s Objective Data [...] % (Auto) 60.9, Lymph % (Auto) 25.5, Cloud % (Auto) 10.5 H, Eos % (Auto) [...] the 140s. Charges/Coding Visit Charges Inpatient E&M: 37825 Subs Hosp L2 07/25/25 1848 <Electronically signed by Renee Encarnacion MD> Renee Encarnacion MD Cosigner Signature (if applicable): CC: ~ Signed [facility] Work Phone: 1(758) 167-890710-03-2025 Radiology Diagnostic study [facility]10-02-2025 Progress note Author Renee [facility] Note Date/Time July 24, 2025 5: 26pm [facility] Medical Records Department [address] [place] [address] Progress Note 07/24/25 1712 MR#: [id number] Acct: [id number] Name: ZABRINA HSU Rep #:[id number] : 1955 70 From: Renee Encarnacion MD PCP: SEUN Alvarez Status:ADM IN Location: [place] [address] Subjective Subjective Patient seen and examined. She [...] % (Auto) 60.9, Lymph % (Auto) 26.7, Cloud % (Auto) 10.0, Eos % (Auto) 0.6, [...] on board. Charges/Coding Visit Charges Inpatient E&M: 69232 Subs Hosp L2 07/24/25 1726 <Electronically signed by Renee Encarnacion MD> Renee Encarnacion MD Cosigner Signature (if applicable): CC: ~ Signed [facility] Work Phone: 1(712) 290-225410-01-2025 Progress note Author [facility]e [facility] Note Date/Time July 23, 2025 5: 12pm [facility] Medical Records Department [address] [place] [address] Progress Note 07/23/25 1212 MR#: [id number] Acct: [id number] Name: ZABRINA HSU Rep #:[id number] : [...] % (Auto) 67.5, Lymph % (Auto)17.3 L, Cloud % (Auto) 13.0 H, Eos % (Auto) [...] to PCU Charges/Coding Visit Charges Inpatient E&M: 96800 Subs Hosp L2 07/23/25 1712 <Electronically signed by Renee Encarnacion MD> Renee Encarnacion MD Cosigner Signature (if applicable): CC: ~ Signed [facility] Work Phone: 1([phone]) 159-360010-01-2025 Progress note Author Eleazar Valle [facility] Note Date/Time July 23, 2025 8: 40am [facility] Medical Records Department [address] [place] [address] Progress Note - [employer] Technician 07/23/25 0738 MR#: [id number] Acct: [id number] Name: ZABRINA HSU Rep #:[id number] : [...] the patient. This note was generated with LYSOGENE dictation software. It may contain incorrectwords, spelling, [...] % (Auto) 67.5, Lymph % (Auto)17.3 L, Cloud % (Auto) 13.0 H, Eos % (Auto) [...] Physician: Jack Zuniga Performed By: Jake Miguel [facility] Chest X-Ray 07/16/25 09:05 IMPRESSION: Tubes and lines in position. There interstitial infiltrates in the perihilar region bilaterally and in the left upper lung. Reading Location: [facility] Chest X-Ray 07/17/25 05:10 IMPRESSION: Tubes and lines in position. There are perihilar infiltrates in the right and left, improved. Reading Location: [facility] Rhythm Strip Rhythm Strip: Sinus Tach Rate: [...] affect normal Charges/Coding Visit Charges Inpatient E&M: 67626 Subs Hosp L2 07/23/25 0840 <Electronically signed by Eleazar Valle DO> Cosigner Signature (if applicable): CC: ~ Signed [facility] Work Phone: 1(754) 844-798109-30-2025 Progress note Author Renee Encarnacion [facility] Note Date/Time July 22, 2025 6:37pm [facility] Medical Records Department [address] [place] [address] Progress Note 07/22/25 1112 MR#: [id number] Acct: [id number] Name: ZABRINA HSU Rep #:[id number] : [...] 84.7 H, Lymph % (Auto) 8.4 L, Cloud % (Auto) 4.1, Eos % (Auto) 0.0, [...] prophylaxis: Lovenox Charges/Coding Visit Charges Inpatient E&M: 24887 Subs Hosp L2 07/22/25 2351 <Electronically signed by Renee Encarnacion MD> Renee [...] applicable): Date cc: ~* Signed [facility] Work Phone: [phone]) [phone] Consult note Author Apple [facility] Note Date/Time July 22, 2025 1:59pm [facility] Medical Records Department [address] [place] [address] Consultation - Palliative Care 07/22/25 1215 MR#: [id number] Acct: [id number] Name: ZABRINA HSU Rep #:[id number] : 1955 70 From: Apple KOHLI PCP: SEUN Alvarez Status:ADM IN Location: ICU ICU01-1 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 Charges/Coding Palliative Care Palliative Care: 83426 New Pt Consult 80+ min HPI Current [...] well as answered questions about her echocardiogram. Macrela did state that she is not interested in eating the food that we had here and states that it does not tastevery good. She may benefit from a dietitian consult, as well. All questions the patient and family had were answered. Palliative care will continue to follow for goals of care conversations as clinical picture evolves. I did update social media job titles about patient and family's decision about outpatient [...] and OA who presents to [facility] ER complaining ofSOB. Ms. Hsu was [...] a Healthcare Power No 07/16/25 07:58 of Concrete Grinder Operator? Do You Want Additional Declined 07/16/25 07:58 Information on Advanced Directives or Healthcare Proxy/DPOA comments: Patient states that they do have legal paperworkand that her , her would be her decision-maker if she is unable to make decisions for herself. Psychosocial/Spiritual Information Living situation/Marital status: Spoke spoke with and 16-year-old grandson. Geographic location: [place] Supports: Family Voodoo/Grazyna or spiritual preference: Mu-Ism Prior functional status: Patient was unable to [...] 84.7 H, Lymph % (Auto) 8.4 L, Cloud % (Auto) 4.1, Eos % (Auto) 0.0, [...] a result of this Palliative Care Encounter: [[id number],[phone], [phone] ] minutes were spent in total for [...] care conversations as clinical picture evolves. 07/22/25 3800 <Electronically signed by Apple KOHLI> Cosigner Signature (if applicable): CC: SEUN Ozuna~ Signed [facility] Work Phone: 1(900) 833-400109-30-2025 Procedure [facility] 07-22-2025 Procedure [facility]09-30-2025 Progress note Author Eleazar Valle [facility] Note Date/Time July 22, 2025 8:48am [facility] Medical Records Department [address] [place] [address] Progress Note - [employer]ird[employer] Technician 07/22/25 0843 MR#: [id number] Acct: [id number] Name: ZABRINA HSU Rep #:[id number] : [...] of diet. This note was generated with LYSOGENE dictation software. It may contain incorrectwords, spelling, [...] 84.7 H, Lymph % (Auto) 8.4 L, Cloud % (Auto) 4.1, Eos % (Auto) 0.0, [...] in the left upper lung. Reading Location: [facility] Chest X-Ray 07/17/25 05:10 IMPRESSION: Tubes and lines in position. There are perihilar infiltrates in the right and left, improved. Reading Location: [facility] Physical Exam Const alert, oriented x3 and [...] affect normal Charges/Coding Visit Charges Inpatient E&M: 27344 Subs Hosp L3 07/22/25 0848 <Electronically signed by Eleazar Valle DO> Cosigner Signature (if applicable): CC: ~ Signed [facility] Work Phone: [phone]) 552-514309-29-2025 Progress note Author Earline Camargo [facility] Note Date/Time July 21, 2025 9:09pm [facility] Medical Records Department [address] [place] [address] Progress Note - Hospitalist 07/21/252058 MR#: [id number] Acct: [id number] Name: ZABRINA HSU Rep #:[id number] : [...] 0.33 07/21/252108 <Electronically signed by Earline Camargo RN VASCULARAaronC> Cosigner Signature (if applicable): CC: ~ Signed [facility] Work Phone: [phone]) 505-690009-29-2025 Progress note Author Renee Alysha [facility] Note Date/Time July 21, 2025 5:28pm [facility] Medical Records Department [address] [place] [address] Progress Note 07/21/25 1406 MR#: [id number] Acct: [id number] Name: ZABRINA HSU Rep #:[id number] : [...] 83.2 H, Lymph % (Auto) 8.8 L, Cloud % (Auto) 5.8, Eos % (Auto) 0.1, [...] prophylaxis: Lovenox Charges/Coding Visit Charges Inpatient E&M: 66804 Subs Hosp L2 07/21/25 1728 <Electronically signed by Renee Encarnacion MD> Renee Encarnacion MD Cosigner Signature (if applicable): CC: ~ Signed [facility] Work Phone: 1([phone]) 438-925309-29-2025 Progress note Author Eleazar Valle [facility] Note Date/Time July 21, 2025 10:38am [facility] Medical Records Department [address] [place] [address] [place] [address] Progress Note - Airdrop Systems Technician 07/21/25 0734 MR#: [id number] Acct: [id number] Name: ZABRINA HSU Rep #:[id number] : [...] 83.2 H, Lymph % (Auto) 8.8 L, Cloud % (Auto) 5.8, Eos % (Auto) 0.1, [...] in the left upper lung. Reading Location: [facility] Chest X-Ray 07/17/25 05:10 IMPRESSION: Tubes and lines in position. There are perihilar infiltrates in the right and left, improved. Reading Location: [facility] Physical Exam Const Constitutional Narrative: The patient [...] follow simple commands. Charges/Coding Procedures Hospitalists Procedures: 71403 Critical Care 1st Hr 07/21/25 1038 <Electronically signed by Eleazar Valle DO> Cosigner Signature (if applicable): CC: ~ Signed [facility] Work Phone: [phone]) [phone] Consult note Author Mateo Gonzales [facility] Note Date/Time July 21, 2025 7:34am [facility] Medical Records Department [address] [place] [address] Pharmacokinetic/Renal -Consult 07/20/25 1137 MR#: [id number] Acct: [id number] Name: ZABRINA HSU Rep #:[id number] : [...] O> Cosigner Signature (if applicable): Date Eleazar Vlale DO CC: ~ Signed [facility] Work Phone: [phone] Progress note Author Gerard Santos [facility] Note Date/Time July 20, 2025 11:57am [facility] Medical Records Department [address] [place] [address] Progress Note - Hospitalist 07/20/25 0836 MR#: [id number] Acct: [id number] Name: ZABRINA HSU Rep #:[id number] : [...] (Auto) 89.3 H, Lymph % (Auto)5.2 L, Cloud % (Auto) 4.5, Eos % (Auto) 0.0, [...] mmHg @ 86% on * ventilator * [facility] for vent mgmt * 2/2 to [...] IV daily. Charges/Coding Visit Charges Inpatient E&M: 46414 Subs Hosp L2 07/20/25 1157 <Electronically signed by Gerard Santos DO> Cosigner Signature (if applicable): CC: ~ Signed [facility] Work Phone: [phone]) 836-938509-28-2025 Progress note Author Reid Murillo [facility] Note Date/Time July 20, 2025 9:07am [facility] Medical Records Department [address] [place] [address] Progress Note - Airdrop Systems Technician 07/20/25 09 MR#: [id number] Acct: [id number] Name: ZABRINA HSU Rep #:[id number] : [...] 07/16/25 07:59 07/20/25 06:02 IV 0 mls/hr .[id number] PRN Infusion Saline Flush Sodium Chloride 250 mls @ 15 mls/hr 07/16/25 07:59 IV .[id number] PRN Additional IVPB Infusion Fentanyl 100 mls [...] Af 1.2 Blake Liquid GT Not Given .[id number] TIMOTHY Propofol 1,000 mg in 100 mls @ 3.06 mls/hr 07/18/25 01:15 07/20/25 00:41 Diprivan CONT INF Not Given .Q12H TIMOTHY Protocol 10 MCG/KG/MIN Vancomycin HCl 1,250 mg/ 275 mls @ 167 mls/hr 07/18/25 12:00 07/19/25 13:10 Sodium Chloride IV Infused Q24H TIMOTHY Infusion Dexmedetomidine HCl 1,000 mcg/ 250 mls @ 6.375 mls/hr 07/19/25 22:00 07/20/2507:00 Sodium Chloride CONT INF 1.5 mcg/kg/hr .[id number] TIMOTHY 19.1 mls/hr Protocol Titration 0.5 MCG/KG/HR [...] 10:00 Quetiapine 25 Mg Tablet GT BID [facility] Protocol Sodium Chloride 10 - [...] (Auto) 89.3 H, Lymph % (Auto)5.2 L, Cloud % (Auto) 4.5, Eos % (Auto) 0.0, [...] (if applicable): CC: ~ Signed [facility] Work Phone: 1([phone]) 363-185009-27-2025 Progress note Author Gerard Santos [facility] Note Date/Time July 19, 2025 12:35pm [facility] Medical Records Department [address] [place] [address] Progress Note - Hospitalist 07/19/25 0758 MR#: [id number] Acct: [id number] Name: ZABRINA HSU Rep #:[id number] : [...] 90.1 H, Lymph % (Auto) 4.7 L, Cloud % (Auto) 4.3, Eos % (Auto) 0.1, [...] in perihilar densities. Reading Location: [facility] Physical Exam Const Constitutional Narrative: intubated. sedated. [...] IV daily. Charges/Coding Visit Charges Inpatient E&M: 80655 Subs Hosp L2 07/19/25 1236 <Electronically signed by Gerard Santos DO> Cosigner Signature (if applicable): CC: ~ Signed [facility] Work Phone: [phone]) [phone] Progress note Author Reid Murillo [facility] Note Date/Time July 19, 2025 11:55am [facility] Medical Records Department [address] [place] [address] Progress Note - Airdrop Systems Technician 07/19/25 1144 MR#: [id number] Acct: [id number] Name: ZABRINA HSU Rep #:[id number] : [...] 07/16/25 07:59 07/19/25 07:27 IV 0 mls/hr .[id number] PRN Infusion Saline Flush Sodium Chloride 250 mls @ 15 mls/hr 07/16/25 07:59 IV .[id number] PRN Additional IVPB Infusion Fentanyl 100 mls [...] 11:29 Sodium Chloride CONT INF 0.9 mcg/kg/hr .[id number] TIMOTHY 11.4 mls/hr Protocol Titration 0.5 MCG/KG/HR Enteral Nutritional Formula 1,000 mls @ 45 mls/hr 07/17/25 10:05 07/19/25 09:30 Vital Af 1.2 Blake Liquid GT 45 mls/hr .[id number] TIMOTHY Administration Propofol 1,000 mg in 100 [...] 100 Unit/Ml Insuln.Pen SC Not Given Q6H [facility] Protocol Methylprednisolone Sodium Succinate 60 [...] 90.1 H, Lymph % (Auto) 4.7 L, Cloud % (Auto) 4.3, Eos % (Auto) 0.1, [...] in perihilar densities. Reading Location: [facility] Assessment and Plan . Assessment and plan: [facility] Medical Records Department [address] [place] [address] Progress Note - Airdrop Systems Technician 07/18/25 0739 MR#: [id number] Acct: [id number] Name: ZABRINA HSU Rep #: [id number] : 1955 70 From: Eleazar Valle DO [...] (if applicable): CC: ~ Signed [facility] Work Phone: 1([phone]) 470-184909-27-2025 Radiology Diagnostic study [facility]09-26-2025 Progress note Author Gerard Santos [facility] Note Date/Time July 18, 2025 12:30pm [facility] Medical Records Department [address] [place] [address] Progress Note - Hospitalist 07/18/2507 MR#: [id number] Acct: [id number] Name: DAVEZABRINA L Rep #:[id number] : [...] RDW Coeff of Shivam 15.1 H, Plt Kytpx495, MPV 9.7, Immature Gran % (Auto) 0.400, Neut % (Auto) 84.1 H, Lymph % (Auto)9.1 L, Cloud % (Auto) 6.3, Eos % (Auto) 0.0, [...] 88.5 H, Lymph % (Auto) 5.9 L, Cloud % (Auto) 4.7, Eos % (Auto) 0.0, [...] IV daily. Charges/Coding Visit Charges Inpatient E&M: 11166 Subs Hosp L2 07/18/25 1230 <Electronically signed by Gerard Santos DO> Cosigner Signature (if applicable): CC: ~ Signed [facility] Work Phone: 1(498) 645-491309-26-2025 Consult note Author Noelle Yañez [facility] Note Date/Time July 18, 2025 12:13pm [facility] Medical Records Department [address] [facility] [place] [address] Pharmacokinetic/Renal -Consult 07/18/25 1128 MR#: [id number] Acct: [id number] Name: ZABRINA HSU Rep #:[id number] : [...] Date Eleazar Valle: ~ Signed [facility] Work Phone: 1(288) 371-309009-26-2025 Progress note Author Eleazar Valle [facility] Note Date/Time July 18, 2025 9:00am [facility] Medical Records Department [address] [place] [address] Progress Note - Airdrop Systems Technician 07/18/25 0739 MR#: [id number] Acct: [id number] Name: ZABRINA HSU Rep #:[id number] : [...] RDW Coeff of Shivam 15.1 H, Plt [id number], MPV 9.7, Immature Gran % (Auto) 0.400, Neut % (Auto) 84.1 H, Lymph % (Auto)9.1 L, Cloud % (Auto) 6.3, Eos % (Auto) 0.0, [...] 88.5 H, Lymph % (Auto) 5.9 L, Cloud % (Auto) 4.7, Eos % (Auto) 0.0, [...] in the left upper lung. Reading Location: [facility] Chest X-Ray 07/17/25 05:10 IMPRESSION: Tubes and lines in position. There are perihilar infiltrates in the right and left, improved. Reading Location: [facility] Physical Exam Const Constitutional Narrative: The patient [...] sedated on vent Charges/Coding Procedures Hospitalists Procedures: 05018 Critical Care 1st Hr 07/18/25 0900 <Electronically signed by Eleazar Valle DO> Cosigner Signature (if applicable): CC: ~ Signed [facility] Work Phone: 1(205) 780-319309-25-2025 Progress note Author Gerard Santos [facility] Note Date/Time July 17, 2025 12:53pm [facility] Medical Records Department [address] [place] [address] Progress Note - Hospitalist 07/17/25 07 MR#: [id number] Acct: [id number] Name: ZABRINA HSU Rep #:[id number] : [...] Clarity Clear, Urine pH 7.0, Ur Specific [place] 1.005, Urine Protein 30 H, Urine Glucose [...] Diffuse atherosclerosis Degenerative bony changes Reading Location: [id number] Chest X-Ray 07/16/25 09:05 IMPRESSION: Tubes and lines in position. There interstitial infiltrates in the perihilar region bilaterally and in the left upper lung. Reading Location: [facility] Chest X-Ray 07/17/25 05:10 IMPRESSION: Tubes and lines in position. There are perihilar infiltrates in the right and left, improved. Reading [facility] Physical Exam Const Constitutional Narrative: agitated [...] at bedside. Charges/Coding Visit Charges Inpatient E&M: 38544 Subs Hosp L2 07/17/25 1253 <Electronically signed by Gerard Santos DO> Cosigner Signature (if applicable): CC: ~ Signed [facility] Work Phone: 1(812) 908-440009-25-2025 Progress note Author Eleazar Valle [facility] Note Date/Time July 17, 2025 10:00am [facility] Medical Records Department [address] [place] [address] Progress Note - Airdrop Systems Technician 07/17/25 0737 MR#: [id number] Acct: [id number] Name: ZABRINA HSU Rep #:[id number] : [...] Clarity Clear, Urine pH 7.0, Ur Specific Pav[place] 1.005, Urine Protein 30 H, Urine Glucose [...] in the left upper lung. Reading Location: [facility] Chest X-Ray 07/17/25 05:10 IMPRESSION: Tubes and lines in position. There are perihilar infiltrates in the right and left, improved. Reading Location: [facility] Physical Exam Const Constitutional Narrative: The patient [...] sedated on vent Charges/Coding Procedures Hospitalists Procedures: 47201 Critical Care 1st Hr 07/17/25 1000 <Electronically signed by Eleazar Valle DO> Cosigner Signature (if applicable): CC: ~ Signed [facility] Work Phone: 1(786) 246-780509-25-2025 Radiology Diagnostic study [facility]09-24-2025 History and physical note Author Jack Haile [facility] Note Date/Time July 16, 2025 7:05pm [facility] Medical Records Department [address] [place] [address] H&P Exam - Hospitalist 07/16/25 0413 MR#: [id number] Acct: [id number] Name: ZABRINA HSU Rep #:[id number] : [...] hysterectomy and OAwho presents to [facility] ER complaining of SOB. Ms. Hsu [...] is expected to extend beyond 2 midnights. 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 Non-rheumatic mitral regurgitation Depression Anxiety Pulmonary hypertension Essential hypertension Pure hypercholesterolemia Atherosclerotic heart disease of ham[place] coronary artery without angina pectoris Home Medications [...] 30.6 L, Lymph % (Auto) 56.5 H, Cloud % (Auto) 6.4, Eos % (Auto) 2.7, [...] 368 H, Calcium 8.5, Total Bilirubin 0.34, WVV026 H, ALT 118 H, Alkaline Phosphatase 163 [...] Sharif Blood Gas Notified Time 04:00:19 Imaging [facility] Imaging Services [address] [place], [place] [address] Brain/Head without Contrast MR#: [id number] Acct: [id number] Name: ZABRINA HSU Rep #: [id number] : 1955 F 70 From: Shimon Santos MD PCP: SEUN Alvarez Status: REG ER Study: Brain/Head without Contrast Date of Exam: 07/16/25 Exam# [id number] Ordering Dr: Bernardo Sharif DO EXAM: NONCONTRAST [...] to exclude an acute component. Reading Location: [facility] CC: SEUN Ozuna; Dr. Bernardo Sharif DO ~ Exchange Teller: Signed ----- [facility] Imaging Services [address] [place] [address] CTA Chest W/WO Contrast MR#: [id number] Acct: [id number] Name: ZABRINA HSU Rep #: [id number] : 1955 F 70 From: Aleksandr Levine MD PCP: SEUN Alvarez Status: REG ER Study: CTA Chest W/WO Contrast Date of Exam: 07/16/25 Exam# [id number] Ordering Dr: Bernardo Sharif DO PROCEDURE: CTA [...] position No suspicious adenopathy Degenerative bony changes [place] Alert: ET tube tip in the SADAF The critical findings in the findings and impression above were relayed directlyby me by telephone to Bernardo Sharif on 07/16/2025 at 6:56 am with readback verification. Reading Location: [id number] CC: SEUN Ozuna; Dr. Bernardo Sharif DO ~ Exchange Teller: Signed Assessment & Plan Assessment/Plan (1) COPD [...] responsive hypotension Charges/Coding Visit Charges Inpatient E&M: 25394 Init Hosp L3 07/16/251904 <Electronically signed by Jack Zuniga DO> Cosigner Signature (if applicable): CC: SEUN Ozuna; Dr. Jack Zuniga DO~ Signed [facility] Work Phone: 1(181) 936-259809-24-2025 Progress note Author Gerard Santos [facility] Note Date/Time July 16, 2025 12:12pm [facility] Medical Records Department [address] [place] [address] Progress Note - Hospitalist 07/16/25 1200 MR#: [id number] Acct: [id number] Name: ZABRINA HSU Rep #:[id number] : [...] 30.6 L, Lymph % (Auto) 56.5 H, Cloud % (Auto) 6.4, Eos % (Auto) 2.7, [...] AST 158 H, ALT 118 H, Alkaline Sqlawbioxmz670 H, Total Creatine Kinase 126, Troponin T [...] Clarity Clear, Urine pH 7.0, Ur Specific [place] 1.005, Urine Protein 30 H, Urine Glucose [...] position No suspicious adenopathy Degenerative bony changes [place] Alert: ET tube tip in the SADAF The critical findings in the findings and impression above were relayed directlyby me by telephone to Bernardo Sharif on 07/16/2025 at 6:56 am with readback verification. Reading Location: [id number] Echocardiogram 07/16/25 06:31 Interpretation Summary Mild concentric [...] Diffuse atherosclerosis Degenerative bony changes Reading Location: [id number] Chest X-Ray 07/16/25 09:05 IMPRESSION: Tubes and [...] (if applicable): CC: ~ Signed [facility] Work Phone: 1(208) 332-269809-24-2025 Consult note Author Noelle Yañez [facility] Note Date/Time July 16, 2025 10:25am [facility] Medical Records Department [address] [place] [address] Pharmacokinetic/Renal -Consult 07/16/25 09 MR#: [id number] Acct: [id number] Name: ZABRINA HSU Rep #:[id number] : [...] Valle DO CC: ~ Signed [facility] Work Phone: 1(716) 953-429609-24-2025 Consult note Author Eleazar Valle [facility] Note Date/Time July 16, 2025 10:10am [facility] Medical Records Department [address] [place] [address] Consultation - Airdrop Systems Technician 07/16/25811 MR#: [id number] Acct: [id number] Name: DAVEZABRINA L Rep #:[id number] : [...] antimicrobials and Lasix. [facility]. 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 Non-rheumatic mitral regurgitation Depression Anxiety Pulmonary hypertension Essential hypertension Pure hypercholesterolemia Atherosclerotic heart disease of ham[place] coronary artery without angina pectoris Home Medications [...] 30.6 L, Lymph % (Auto) 56.5 H, Cloud % (Auto) 6.4, Eos % (Auto) 2.7, [...] AST 158 H, ALT 118 H, Alkaline Ivfywbxejbj090 H, Total Creatine Kinase 126, Troponin T [...] position No suspicious adenopathy Degenerative bony changes [place] Alert: ET tube tip in the SADAF The critical findings in the findings and impression above were relayed directlyby me by telephone to Bernardo Sharif on 07/16/2025 at 6:56 am with readback verification. Reading Location: [facility] Abdomen/Pelvis CT 07/16/25 06:40 IMPRESSION: No [...] Diffuse atherosclerosis Degenerative bony changes Reading Location: [facility] Charges/Coding Procedures Hospitalists Procedures: 73605 Critical Care 1st Hr 07/16/25 1010 <Electronically signed by Eleazar Valle DO> Cosigner Signature (if applicable): CC: SEUN Ozuna~ Signed [facility] Work Phone: 1(793) 779-592509-24-2025 Radiology Diagnostic study [facility]09-24-2025 Discharge summary Author Bernardo Sharif [facility] Note Date/Time July 16, 2025 7:03am [facility] Medical Records Department [address] [place] [address] Emergency Department Summary 07/16/25 MR#: [id number] Acct: [id number] Name: DAVEZABRINA L Rep #:[id number] : 1955 70 From: Bernardo Small PCP: SEUN Alvarez Status:REG ER Location: ED HPI History of Present Illness Chief Complaint: Shortness of Breath PFSH PFSH Medical History Anxiety Apical variant hypertrophic cardiomyopathy Atherosclerotic heart disease of ham[place] coronary artery without angina pectoris Depression Essential [...] does not use caffeine: Yes Type: coffee [facility] MDM MDM Narrative Medical decision making [...] Reviewed recent hospitalization. Patient was admitted to [facility] from 06/16/2025 until 06/25/2025 for acute on chronic respiratory failure hypoxia. Acute pulmonary edema, NSTEMI, COPD exacerbation. This time patient suffered respiratory failure required mechanical ventilation. Factors affecting care: As per HPI Social determinants of health: none History obtained from others: EMS Consults: Internal Medicine (Dr. Haile) [facility] Narrative: The patient was initially hypertensive [...] appropriate for admission here at [facility] to intensive care unit. Dr. Hess [...] to ICU This note was generated with LYSOGENE dictation software. It may contain incorrectwords, spelling, [...] 90 3RF Primary Care Provider: Alfonso Ozuna RN VASCULAR Referrals: Alfonso Ozuna NP, RN VASCULAR-C [Primary Care Provider, Family Practice] Print Language: Djiboutian What to do if you have Problems For any increased pain, shortness of breath, bleeding, nausea or vomiting, chestpain, or any unexpected problems, contact your Primary Care Provider. Call [facility] ([phone]) or report to the closest Emergency Room. Call 911 if necessary. 07/16/25 0703 <Electronically signed by Bernardo Sharif DO> Cosigner Signature (if applicable): CC: RN VASCULARAaronC Alfonso Ozuna ~ Signed [facility] Work Phone: 1(189) 400-914909-24-2025 Evaluation note* Diagnosis Onset Date Resolution Status [...] chronic Septemb er 2024 6:21am [facility] Work Phone: 1(394) 795-897409-24-2025 NoteAcceptable Specimen? Acceptable Specimen(Evaluation not needed) Gram Stain 2+ White Blood Cells Rare Epithelial cells Rare Gram positive cocciWSelect Medical Specialty Hospital - CincinnatiComment on above:Performed By: #### M100.2400, M100.2000, M100.678, M100.2200 ####[facility] [address] [place], [address](480) 560-779309-24-2025 Radiology Diagnostic study [facility]09-24-2025 Radiology Diagnostic study [facility]09-24-2025 Radiology Diagnostic study note [facility]09-24-2025 History and physical note Author Jack Haile [facility] Note Date/Time July 16, 2025 7:05pm [facility] Medical Records Department [address] [place] [address] H&P Exam - Hospitalist 07/16/25 0413 MR#: [id number] Acct: [id number] Name: ZABRINA HSU Rep #:[id number] : [...] hysterectomy and OAwho presents to [facility] ER complaining of SOB. Ms. Hsu [...] is expected to extend beyond 2 midnights. 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 Non-rheumatic mitral regurgitation Depression Anxiety Pulmonary hypertension Essential hypertension Pure hypercholesterolemia Atherosclerotic heart disease of [place] coronary artery without angina pectoris Home Medications [...] 30.6 L, Lymph % (Auto) 56.5 H, Cloud % (Auto) 6.4, Eos % (Auto) 2.7, [...] 368 H, Calcium 8.5, Total Bilirubin 0.34, HAS129 H, ALT 118 H, Alkaline Phosphatase 163 [...] Sharif Blood Gas Notified Time 04:00:19 Imaging [facility] Imaging Services [address] [place] [address] Brain/Head without Contrast MR#: [id number] Acct: [id number] Name: ZABRINA HSU Rep #: [id number] : 1955 F 70 From: Shimon Santos MD PCP: SEUN Alvarez Status: REG ER Study: Brain/Head without Contrast Date of Exam: 07/16/25 Exam# [id number] Ordering Dr: Bernardo Sharif DO EXAM: NONCONTRAST [...] SEUN Ozuna; Dr. Bernardo Sharif DO ~ Exchange Teller: Signed ----- [facility] Imaging Services [address] [place], [place] [address] CTA Chest W/WO Contrast MR#: [id number] Acct: [id number] Name: ZABRINA HSU Rep #: [id number] : 1955 F 70 From: Aleksandr Levine MD PCP: SEUN Alvarez Status: [facility] Study: CTA Chest W/WO Contrast Date of Exam: 07/16/25 Exam# [id number] Ordering Dr: Bernardo Sharif DO PROCEDURE: CTA [...] position No suspicious adenopathy Degenerative bony changes [place] Alert: ET tube tip in the SADAF The critical findings in the findings and impression above were relayed directlyby me by telephone to Bernardo Sharif on 07/16/2025 at 6:56 am with readback verification. Reading Location: [id number] CC: RN VASCULARNuvia Ozuna; Dr. Bernardo Sharif DO ~ Exchange Teller: Signed Assessment & Plan Assessment/Plan (1) COPD [...] responsive hypotension Charges/Coding Visit Charges Inpatient E&M: 07112 Init Hosp L3 07/16/251904 <Electronically signed by Jack Zuniga DO> Cosigner Signature (if applicable): CC: SEUN Ozuna; Dr. Jack Zuniga DO~ Signed [facility] Work Phone: 1([phone]) 956-881609-03-2025 Cardiology Progress note Subjective Patient seen and [...] by Nursing Assessment/Plan CAD s/p PCI ([facility] 06/24/2025 -significant LAD disease status post PCI [...] 35% with wall motion abnormality. Underwent [facility] yesterday showing significant LAD disease with PCI to LAD and moderate disease in LCx, which is recommended to manage medically. Patient tolerated DAPT with aspirin and Plavix. Continue Coreg, Entresto and spironolactone. Okay to be discharged from cardiac standpoint. Digitally Signed by HARSH CEDILLO MD on 06/25/2025 01:39 PM [facility] Discharge Instructions Thank you for allowing [...] 2 weeks Where:[address] [facility] [place] [address]- Follow Up with Cardiac Rehab- [facility] Where:[facility] [address] [place] [address]- Additional Information: Cardiac rehabilitation is a vital part of your recovery and long-term hearthealth following your hospital stay. It is a medically supervised exercise and education program designed to improve your physical fitness, manage heart-related risk factors, and support emotional well-being. A cardiac rehab manufacturing team member will contact you soon to schedule your follow-up appointment. If you have any questions please call [phone]. Follow Up with [facility], When:Within 1-2 days Additional Information: [facility] has been referred to provide your home care services upon discharge; a nurse will contact you upon your return home to arrange for your start of care; please call with any further questions or concerns. Follow Up with ALFONSO OZUNA When:Within 1-2 days Where:[address] [place] [address]- [phone] Additional Information: Please call the office to [...] Duration: 3 Days Pickup at [facility] New spironolactone (Aldactone 25 mg oral tablet) 1 tab(s) by mouth Once a day with a meal Duration: 90 Days Refills: 3 Pickup at [facility] Changed aspirin (aspirin 81 mg oral delayed release tablet) 1 tab(s) by mouth Every day Duration: 90 Days Pickup at [facility] Changed clopidogrel (Plavix 75 mg oral tablet) 1 tab(s) by mouth Once a day Duration: 90 Days Pickup at [facility] Changed furosemide (Lasix 40 mg oral tablet) 1 tab(s) by mouth Once a day Duration: 90 Days Pickup at [facility] Unchanged albuterol (albuterol MDI (90 [...] times a day Pharmacy Information [facility]: [address], [place] [id number] [phone] Please take this list to your next [...] You should not use spironolactone if you Lowell's disease, high levels of potassium in your [...] allergic to it, or if you have: Lowell's disease (an adrenal gland disorder); high levels [...] may report side effects to FDA at 2-480-GNY-2057. What other drugs will affect spironolactone? Using [...] drugs may affect spironolactone, including prescription and pugx-ihh-vmhvpmf medicines, vitamins, and herbal products. Not all [...] to ensure that the information provided by [employer] ('[employer]') is accurate, up-to-date, and complete, but no guarantee is made to that effect. Drug information contained herein may be time sensitive. [employer] information has been compiled for use by healthcare practitioners and consumers in the [place] and therefore [employer] does not warrant that uses outside of the [place] are appropriate, unless specifically indicated otherwise. [employer] drug information does not endorse drugs, diagnose patients or recommend therapy. [employer] drug information isan informational resource designed to [...] effective or appropriate for any given patient. [facility] does not assume any responsibility for any aspect of healthcare administered with the aid of information [facility] provides. The information contained herein is not intended to cover all possible uses, directions, precautions, warnings, drug interactions, allergic reactions, or adverse effects. If you have questions about the drugs you are taking, check with your doctor, nurse or pharmacist. Copyright 5212-9594 [facility] [employer]. Version: 08.23. Revision Date: 01/04/2020. Education Materials [...] a prescription, and some you can buy hhzk-mcn-wqeigie. Some medicines may contain a drug called [...] and encourage you. Call a phone quitline (8-357-ZJQKNOW), reach out to support groups, or work [...] 08/05/2010 Document Revised: 12/27/2019 Document Reviewed: 12/28/2019 [email or web address] Patient Education 2020 [employer]. HEART CATHETERIZATION/PCI (radial) Discharge Instructions DIET Drink [...] Document Reviewed: 10/10/2014 ExitCare Patient Information 2015 [employer]. This information is not intended to replace advicegiven to you by your health care provider. Make sure you discuss any questions you have with your health care provider. Additional Information VACCINATE! IT SAVES LIVES! Members of the community who have not yet received the COVID-19 vaccine and would like to receive it can visit one of [facility] vaccine clinics. There are many vaccine clinic locations within the [facility]. For locations and available times, please visit [email or web address].[place].gov/. It is important to note that some COVID mobile vaccine clinics are held outdoors and may be canceled in rainy or stormy conditions. To learn more about pediatric vaccinations (ages 5-11), we invite you to visit the [facility] webpage. https://www.[email or web address].org/pages/9815-Rlgyx-Jhgwwlcyfxx-Tzonaqxhpl-Pgncl-Qxr stions.htmlTo learn more about the COVID-19 vaccine, we invite you to visit the CDC website for a list of frequently asked questions.https://www.cdc.gov/coronavirus/2019-ncov/vaccines/faq.html [facility] Patient Portal Access Instructions: Stay connected with your healthcare team and access your personal medical information anytime with the [facility] Patient Portal. Please follow the directions below to create your [facility]light account: 1.Access the email account you provided upon registration to the hospital/physician office.2.Look for an invitation email from [facility].3.Open the email and access the invitation link: AcceptInvitation to [facility].4.Fill in the required lr to create your account. To access your account, visit [email or web address]. Click the blue button labeled Access Patient [...] who you will allowto register on the [facility] Patient Portal for access to your information. You can also access the [facility] Patient Portal on the [facility] benitez. Simply click on Patient Portal and then log into your account. If you would like to receive a full copy of your medical records, please contact the [facility] Medical Records Department by calling [phone], Monday through Monday between 8 a.m. and [...] Call your local pharmacy or go to http://Corporama.Emunamedica/9Z4Ei3k to find one close to you.3.Make use of household items: Use cat litter or old coffee grounds to dispose medications if other options arenot available. Mix your drugs with these household products, seal them in an airtight container andthrow it into the garbage. Call [facility]: [phone] to be sure your drugs can be [...] Patient Education Materials Steps to Quit Smoking, Oxgn-yt-Nrtq 3- Heart Cath/PCI radial (07/2018)(CUSTOM) Medication Leaflets spironolactone My discharge plan and instructions have been reviewed and explained to me and IDAVE MELODIE Lunderstand my current condition and have read and understand these discharge instructions. I have received a written copy of the plan/instructions. If I have questions, I am aware that I should contact my doctor. Patient/Manager Acquisition Signature: Date/Time: Relationship to Patient: Witness Name/Signature: Date/Time: [facility] CenterHnyucduq78-21-0236 Hospital Discharge instructions Patient Education 06/25/2025 12:39:30 Steps to Quit Smoking, Vise-sl-Tpaz Steps to Quit Smoking Smoking tobacco is [...] a prescription, and some you can buy oouf-qvx-rwoascz. Some medicines may contain a drug called [...] as websites. Examples include QuitGuide from the [employer] and smokefree.gov What things can I do to make it easier to quit? Talk to your family and friends. Ask them to support and encourage you. Call a phone quitline (5-349-TWTBNOW), reach out to support groups, or work [...] 08/05/2010 Document Revised: 12/27/2019 Document Reviewed: 12/28/2019 TicketGoose.com Patient Education 2020 Sokr[employer]. 06/25/2025 12:39:24 3- Heart Cath/PCI radial (07/2018)(CUSTOM) [...] Document Reviewed: 10/10/2014 ExitCare Patient Information 2015 [employer]. This information is not intended to replace advicegiven to you by your health care provider. Make sure you discuss any questions you have with your health care provider. Follow Up Care 06/16/2025 05:21:39 With:LUIS CANCHOLA MD Address: [address] [facility] [address] [facility] [place] [address]- When:Within 2 Week(s) With:[facility] Address: [facility] [address] [address]- When: Unknown Comments:Cardiac rehabilitation is a vital part of your recovery and long-term heart health following your hospital stay. It is a medically supervised exercise and education program designed to improve your physical fitness, manage heart- related risk factors, and support emotional well-being. A cardiac rehab manufacturing team member will contact you soon to schedule your follow-up appointment. If you have any questions please call [phone]. With:[facility], Address:Unknown When:1-2 days Comments:[facility] has been referred to provide your home care services upon discharge; a nurse will contact you upon your return home to arrange for your start of care; please call with any further questions or concerns. With:ALFONSO OZUNA APRN-[facility] Address: [address] [place] [address]- [phone] When:1-2 days Comments:Please call the office to schedule a hospital follow up appointment. [facility] 09-03-2025 Cardiology Progress note Subjective Patient seen [...] by Nursing Assessment/Plan CAD s/p PCI ([facility] 06/24/2025 -significant LAD disease status post PCI [...] 35% with wall motion abnormality. Underwent [facility] yesterday showing significant LAD disease with PCI to LAD and moderate disease in LCx, which is recommended to manage medically. Patient tolerated DAPT with aspirin and Plavix. Continue Coreg, Entresto and spironolactone. Okay to be discharged from cardiac standpoint. Digitally Signed by HARSH CEDILLO MD on 06/25/2025 01:39 PM [facility] CenterYbooomag16-45-0366 Discharge summary Date of Service 06/25/2025 13:16:26 [...] PCP and Cardiology Allergies NKA Procedures [facility] Intubation Consults No qualifying data available. 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 Skin: No [...] CANCHOLA MD When:In 2 weeks Where:[address] [facility] [address] [facility] [place] [address]- Follow Up with [facility] Where:[facility] [address] [place] [address]- Additional Information: Cardiac rehabilitation is a vital part of your recovery and long-term hearthealth following your hospital stay. It is a medically supervised exercise and education program designed to improve your physical fitness, manage heart-related risk factors, and support emotional well-being. A cardiac rehab manufacturing team member will contact you soon to schedule your follow-up appointment. If you have any questions please call [phone]. Follow Up with [facility], When:Within 1-2 days Additional Information: [facility] has been referred to provide your home care services upon discharge; a nurse will contact you upon your return home to arrange for your start of care; please call with any further questions or concerns. Follow Up with ALFONSO OZUNA When:Within 1-2 days Where:[address] [place] [address]- [phone] Additional Information: Please call the office to [...] KENNEDY HAMILTON MD on 06/25/2025 01:18 PM [facility] CenterPvtgneto86-24-0596 Note Discharge Instructions Thank you for allowing [facility] to assist you with your healthcare needs. The following is importantdischarge information regarding your hospital visit. Your Care Team ALFONSO OZUNA What to do next Follow Up Appointments Follow Up with LUIS CANCHOLA MD When:In 2 weeks Where:[address] [facility] [place] [address]- Follow Up with [facility] Where:[facility] [address] [place] [address]- Additional Information: Cardiac rehabilitation is a vital part of your recovery and long-term hearthealth following your hospital stay. It is a medically supervised exercise and education program designed to improve your physical fitness, manage heart-related risk factors, and support emotional well-being. A cardiac rehab manufacturing team member will contact you soon to schedule your follow-up appointment. If you have any questions please call [phone]. Follow Up with [facility], When:Within 1-2 days Additional Information: [facility] has been referred to provide your home care services upon discharge; a nurse will contact you upon your return home to arrange for your start of care; please call with any further questions or concerns. Follow Up with ALFONSO OZUNA When:Within 1-2 days Where:[place] [address]- [phone] Additional Information: Please call the office to [...] Days Refills: 3 Pickup at [facility] Changed aspirin (aspirin 81 mg oral delayed release tablet) 1 tab(s) by mouth Every day Duration: 90 Days Pickup at [facility] Changed clopidogrel (Plavix 75 mg oral tablet) 1 tab(s) by mouth Once a day Duration: 90 Days Pickup at [facility] Changed furosemide (Lasix 40 mg oral tablet) 1 tab(s) by mouth Once a day Duration: 90 Days Pickup at [facility] Unchanged albuterol (albuterol MDI (90 [...] times a day Pharmacy Information [facility]: [address], [place] [id number] [phone] Please take this list to your next [...] You should not use spironolactone if you Lowell's disease, high levels of potassium in your [...] allergic to it, or if you have: Lowell's disease (an adrenal gland disorder); high levels [...] may report side effects to FDA at 3-274-FVE-7800. What other drugs will affect spironolactone? Using [...] drugs may affect spironolactone, including prescription and opbc-yql-jcnxzvl medicines, vitamins, and herbal products. Not all [...] to ensure that the information provided by [employer]. ('[employer]') is accurate, up-to-date, and complete, but no guarantee is made to that effect. Drug information contained herein may be time sensitive. Heroic information has been compiled for use by healthcare practitioners and consumers in the [place] and therefore [employer] does not warrant that uses outside of the [place] are appropriate, unless specifically indicated otherwise. [employer] drug information does not endorse drugs, diagnose patients or recommend therapy. [employer] drug information isan informational resource designed to [...] effective or appropriate for any given patient. [employer] does not assume any responsibility for any aspect of healthcare administered with the aid of information Heroic provides. The information contained herein is not intended to cover all possible uses, directions, precautions, warnings, drug interactions, allergic reactions, or adverse effects. If you have questions about the drugs you are taking, check with your doctor, nurse or pharmacist. Copyright 5720-7421 [employer]. Version: .. Revision Date: 01/04/2020. Education Materials [...] a prescription, and some you can buy ytkb-iia-kjdalgm. Some medicines may contain a drug called [...] as websites. Examples include QuitGuide from the [employer] and smokefree.gov What things can I do to make it easier to quit? Talk to your family and friends. Ask them to support and encourage you. Call a phone quitline (9-335-XJKYNOW), reach out to support groups, or work [...] 08/05/2010 Document Revised: 12/27/2019 Document Reviewed: 12/28/2019 TicketGoose.[employer] Patient Education 2020 Sokrati. HEART CATHETERIZATION/PCI (radial) Discharge Instructions DIET Drink [...] Document Reviewed: 10/10/2014 ExitCare Patient Information 2015 [employer]. This information is not intended to replace advicegiven to you by your health care provider. Make sure you discuss any questions you have with your health care provider. Additional Information VACCINATE! IT SAVES LIVES! Members of the community who have not yet received the COVID-19 vaccine and would like to receive it can visit one of [facility] vaccine clinics. There are many vaccine clinic locations within the [facility]. For locations and available times, please visit https://gettheshot.coronavirus.[place].gov/. It is important to note that some COVID mobile vaccine clinics are held outdoors and may be canceled in rainy or stormy conditions. To learn more about pediatric vaccinations (ages 5-11), we invite you to visit the [facility] webpage. https://www.akMoBanks.org/pages/8077-Zxjhy-Vyufwwjlamt-Dhrbhiylvi-Pnzkp-Eng stions.htmlTo learn more about the COVID-19 vaccine, we invite you to visit the CDC website for a list of frequently asked questions.https://www.cdc.gov/coronavirus/2019-ncov/vaccines/faq.html Spot[facility] Patient Portal Access Instructions: Stay connected with your healthcare team and access your personal medical information anytime with the [facility] Patient Portal. Please follow the directions below to create your Spotlight account: 1.Access the email account you provided upon registration to the hospital/physician office.2.Look for an invitation email from [facility].3.Open the email and access the invitation link: AcceptInvitation to Spotlight.4.Fill in the required lr to create your account. To access your account, visit [employer]/IntegriChainOneChart. Click the blue button labeled Access Patient [...] who you will allowto register on the Spot[facility] Patient Portal for access to your information. You can also access the [facility] OneChart Patient Portal on the [facility] benitez. Simply click on Patient Portal and then log into your account. If you would like to receive a full copy of your medical records, please contact the [facility] Medical Records Department by calling [phone], Monday through Monday between 8 a.m. and [...] Call your local pharmacy or go to http://TempMine/6H9Kk7g to find one close to you.3.Make use of household items: Use cat litter or old coffee grounds to dispose medications if other options arenot available. Mix your drugs with these household products, seal them in an airtight container andthrow it into the garbage. Call [facility]: [phone] to be sure your drugs can be [...] Patient Education Materials Steps to Quit Smoking, Aesp-oe-Gjdc 3- Heart Cath/PCI radial (07/2018)(CUSTOM) Medication Leaflets spironolactone My discharge plan and instructions have been reviewed and explained to me and I,ZABRINA HSU my current condition and have read and understand these discharge instructions. I have received a written copy of the plan/instructions. If I have questions, I am aware that I should contact my doctor. Patient/Manager Acquisition Signature: Date/Time: Relationship to Patient: Witness Name/Signature: Date/Time: [facility] CenterJkkjhgmr34-05-5222 Note* Exam Date Time Procedure Performing Provider Status 06/24/25 6:43 PM Electrocardiogram - EKG - CV MARY BERNAL MD; Auth (Verified) ECG Final Report SINUS RHYTHM LOW VOLTAGE, EXTREMITY LEADS NONSPECIFIC T ABNRM, ANTEROLATERAL LEADS Electronic Signature: OWEN BERNAL MD 06/25/2025 11:40:06 [facility] CenterLzxoqidv98-35-0782 Cardiology Progress note Date of Service 06/24/2025 [...] JESUSITA SOARES MD on 06/24/2025 02:13 PM [facility] CenterYupthmgv16-66-0194 Cardiology Progress note Date of Service 06/24/25 [facility] Significant LAD disease s/p PCI Aspirin and Plavix Residual Left CRx disease for medical management Digitally Signed by CLAUDE MEADOWS MD on 06/24/2025 03:34 PM [facility] CenterQcnzikte83-70-7812 Cardiology Progress note Date of Service 06/24/2025 [...] JESUSITA SOARES MD on 06/24/2025 02:13 PM [facility] CenterKvmvfncv04-87-9135 Note Date of Service 06/24/25 Chief Complaint [...] Date: June 17, 2025 Verified By: GENARO ON MD CLINICAL [...] lab service, Stop date 06/24/25 8:05:00 EDT, [id number] .Neutro Absolute, Timed Study (collect at specified time), Blood, Once, Preferred Lab: Other lab service, Stop date 06/24/25 8:05:00 EDT, [id number] APTT, 06/24/25 8:00:00 EDT, Timed Study (collect [...] 06/23/25 23:58:00 EDT, Constant Order, For [facility] on Sunday 06/24 NSTEMI (peak troponin 1085) [...] systolic; continue losartan and carvedilol. Goal <130/80 terminal supervisor, but avoid rapid inpatient lowering. Lipids [...] patch 14 mg daily with lozenges PRN. 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 Renal function Cr 1.0, BUN 19, [...] Spent Greater than 35 minutes were spent kkqo-nh-zwcc with the patient +/- family during this encounter and >50% was spent on counseling and coordination of care. Digitally Signed by PAPI BAXTER MD on 06/24/2025 08:54 PM [facility] CenterIfgaqvkd84-63-7039 Note Date of Service 06/23/25 Chief Complaint [...] 06/22/25 23:58:00 EDT, Constant Order, For [facility] on Monday (06/23/25) NSTEMI (peak hs-troponin 1085) [...] mg daily before discharge if hemodynamically stable; deputy county counsel on sick-day rules and euglycemic DKA risk [...] recent anti-Xa/aPTT within target prior to transport; labor expediter will manage periprocedural anticoagulation dosing. PT recommends [...] Spent Greater than 35 minutes were spent jcjg-xm-micr with the patient +/- family during this encounter and >50% was spent on counseling and coordination of care. Digitally Signed by PAPI BAXTER MD on 06/23/2025 08:03 PM [facility] CenterMrhlvytl60-53-5062 Note Date of Service 06/22/25 Chief Complaint [...] Spent Greater than 35 minutes were spent mbdq-sz-qhdb with the patient +/- family during this encounter and >50% was spent on counseling and coordination of care. Digitally Signed by PAPI BAXTER MD on 06/22/2025 04:42 PM [facility] CenterAhjfapad94-55-2953 Note. MICRO - Microbiology PROCEDURE: Blood Culture [...] Locations *1: This test was performed at: [address], [facility] , [facility] [id number] Note. MICRO - Microbiology PROCEDURE: Blood Culture [...] Locations *1: This test was performed at: [address], [facility] , [facility] [id number] Note. MICRO - Microbiology PROCEDURE: Blood Culture [...] Locations *1: This test was performed at: [address], [address] [place] [address] [id number] Note. MICRO - Microbiology PROCEDURE: Blood Culture [...] Locations *1: This test was performed at: [address], [address] [place], [place] [address]208-30-2025 Nurse Progress note Patient is alert and oriented 4 but forgetful. She is aware of how to disable bed alarms and was wearing nonslip socks at the time of the incident. The respiratory therapist encountered the patient ambulating unassisted, usp to the bathroom, tugging on her IV [...] Matthieu Blake RN on 06/21/2025 07:41 AM [facility] CenterPkxabuei31-29-4034 Cardiology Consult note Date of Service 06/16/2025 [...] atrial pressure is [address] [facility] 08/2023: SUMMARY: 1. Left ventricle: Systolic function [...] Problem List/Past Medical History Ongoing CAD in [place] artery Cardiomyopathy Hypertension Mitral valve regurgitation Syncope [...] MELANIE CLEMONS DO on 06/16/2025 04:25 PM [facility] CenterAjapvcbi04-99-3487 Note Date of Service 06/20/2025 ICU Day [...] COPD transfer for pulmonary and hospital At [facility]. Vitals BP 114/67, [...] exacerbation of COPD (emphysematous) and transferred to [facility]. Current vent settings FiO2 40%, tidal [...] 240 10^3/mcL 06/17/25 06:47:00 APTT 67.1 seconds [facility] 06/20/25 01:39:00 APTT 52.6 seconds [facility] 06/19/25 17:01:00 APTT 73.6 seconds [facility] 06/19/25 08:44:00 APTT 65.1 seconds [facility] 06/19/25 02:59:00 APTT 68.1 seconds [facility] 06/18/25 19:45:00 APTT 40.6 seconds [facility] 06/18/25 08:41:00 APTT 51.7 seconds [facility] 06/18/25 03:51:00 APTT 46.8 seconds [facility] 06/17/25 20:40:00 APTT 40.2 seconds [facility] 06/17/25 12:38:00 APTT 54.3 seconds [facility] 06/17/25 06:47:00 Glucose Level 116 mg/dL [facility] 06/20/25 02:11:00 Glucose Level 156 mg/dL [facility] 06/19/25 20:49:00 Glucose Level 139 mg/dL [facility] 06/19/25 02:59:00 Glucose Level 145 mg/dL [facility] 06/18/25 03:51:00 Glucose Level 106 mg/dL 06/17/25 06:47:00 Sodium Level 139 mEq/L 06/20/25 02:11:00 Sodium Level 140 mEq/L 06/19/25 20:49:00 Sodium Level 149 mEq/L [facility] 06/19/25 02:59:00 Sodium Level 143 mEq/L [...] 28 mEq/L 06/17/25 06:47:00 BUN 42 mg/dL [facility] 06/20/25 02:11:00 BUN 39 mg/dL High [...] the sections as needed. Philippe Zaragoza M.D., [facility] High degree of medical complexity [...] PHILIPPE ZARAGOZA MD on 06/20/2025 12:58 PM [facility] CenterJvyyvfwe32-54-9424 Note* Exam Date Time Procedure Performing Provider Status 06/19/25 6:40 PM Electrocardiogram - EKG - CV JAIRO LIMA MD; Auth (Verified) ECG Final Report Wandering atrial pacemaker Left ventricular hypertrophy Prolonged QT interval Electronic Signature: JAIRO PÉREZ MD 06/20/2025 16:26:25 [facility] CenterLcandwzw39-44-2743 Note Date of Service 06-19-2025 ICU Day [...] COPD transfer for pulmonary and hospital At [facility]. Vitals BP 114/67, [...] exacerbation of COPD (emphysematous) and transferred to [facility]. Current vent settings FiO2 40%, tidal [...] 263 10^3/mcL 06/16/25 17:09:00 APTT 73.6 seconds [facility] 06/19/25 08:44:00 APTT 65.1 seconds [facility] 06/19/25 02:59:00 APTT 68.1 seconds [facility] 06/18/25 19:45:00 APTT 40.6 seconds [facility] 06/18/25 08:41:00 APTT 51.7 seconds [facility] 06/18/25 03:51:00 APTT 46.8 seconds [facility] 06/17/25 20:40:00 APTT 40.2 seconds [facility] 06/17/25 12:38:00 APTT 54.3 seconds [facility] 06/17/25 06:47:00 APTT 71.7 seconds [facility] 06/16/25 23:54:00 APTT 33.8 seconds 06/16/25 17:09:00 Protime 14.4 seconds 06/16/25 17:09:00 PT International Ratio 1.2 ratio 06/16/25 17:09:00 Glucose Level 139 mg/dL [facility] 06/19/25 02:59:00 Glucose Level 145 mg/dL [facility] 06/18/25 03:51:00 Glucose Level 106 mg/dL 06/17/25 06:47:00 Sodium Level 149 mEq/L [facility] 06/19/25 02:59:00 Sodium Level 143 mEq/L [...] the sections as needed. Philippe Zaragoza M.D., [facility] High degree of medical complexity [...] PHILIPPE ZARAGOZA MD on 06/19/2025 01:04 PM [facility] CenterPeexirkz69-26-3255 Note* Exam Date Time Procedure Performing Provider Status 06/19/25 7:59 AM XR Chest 1 View PARISH AGUIRRE DO; [facility] (Verified) [id number] ORIGINAL EXAMINATION: ONE XRAY VIEW OF THE [...] 06/19/2025 8:06:42 AM Ordering Provider: ADRIANA WEAVER [facility] CenterJqbklzkm49-48-8127 Note* Exam Date Time Procedure Performing Provider Status 06/18/25 11:16 AM Electrocardiogram - EKG - CV JAIRO MARTINS MD; Auth (Verified) ECG Final Report Sinus rhythm Multiple premature complexes, vent & supraven Anterior infarct, age indeterminate Lateral leads are also involved Electronic Signature: JAIRO PÉREZ MD 06/19/2025 16:18:13 [facility] CenterUpycmecb63-42-4932 Note. MICRO - Microbiology PROCEDURE: Culture Respiratory [...] Locations *1: This test was performed at: [facility], [address] [place] [address], [address]- , [facility]08-27-2025 Note* Exam Date Time Procedure Performing Provider Status 06/18/25 6:44 AM XR Chest 1 View GENARO NO MD; Auth (Verified) [id number] ORIGINAL EXAMINATION: ONE XRAY VIEW OF THE [...] Sign Date: 06/18/2025 7:12:41 AM Ordering Provider: [facility]08-27-2025 Note Date of Service 06-18-2025 ICU [...] COPD transfer for pulmonary and hospital At [facility]. Vitals BP 114/67, [...] exacerbation of COPD (emphysematous) and transferred to [facility]. Current vent settings FiO2 40%, tidal [...] 9 10^3/mcL 06/17/25 06:47:00 WBC 12.1 10^3/mcL [facility] 06/16/25 17:09:00 WBC 20.2 10^3/mcL [facility] 06/16/25 10:25:00 Hgb 11 G/dL Low [...] 297 10^3/mcL 06/16/25 10:25:00 APTT 51.7 seconds [facility] 06/18/25 03:51:00 APTT 46.8 seconds [facility] 06/17/25 20:40:00 APTT 40.2 seconds [facility] 06/17/25 12:38:00 APTT 54.3 seconds [facility] 06/17/25 06:47:00 APTT 71.7 seconds [facility] 06/16/25 23:54:00 APTT 33.8 seconds 06/16/25 17:09:00 Protime 14.4 seconds 06/16/25 17:09:00 PT International Ratio 1.2 ratio 06/16/25 17:09:00 Glucose Level 145 mg/dL [facility] 06/18/25 03:51:00 Glucose Level 106 mg/dL [...] minutes Critical Care time Philippe Zaragoza M.D., [facility] High degree of medical complexity [...] PHILIPPE ZARAGOZA MD on 06/18/2025 12:13 PM [facility] CenterTglsqexu86-95-9059 Note* Exam Date Time Procedure Performing Provider Status 06/17/25 6:53 AM XR Chest 1 View GENARO NO MD; Auth (Verified) [id number] ORIGINAL EXAMINATION: ONE XRAY VIEW OF THE [...] Date: 06/17/2025 6:58:17 AM [facility]ing [facility] CenterOqkmvpcl26-42-8770 Note Date of Service 06-17-2025 ICU Day 2 Significant Comorbidities/Current Illness 70-year-old female with history of CAD status post PCI to RCA in , cardiomyopathy (thought to be Takotsubo cardiomyopathy), COPD, bipolar, tobacco use, GERD, anxiety, depression, history of suicide attempt in 2010. Presented to [facility] with COPD exacerbation. developed hypoxic respiratory failure requiring intubation and mechanical ventilation and COPD transfer for pulmonary and hospital At [facility]. Vitals BP 114/67, [...] exacerb[facility] of [facility]semat[facility] Current vent settings FiO2 40%, tidal [...] & SBI 143, RR 31, and tidal [id number]. Minute volume was 5.9. 4-collateral history obtained [...] minutes Critical Care time Philippe Zaragoza M.D., [facility] High degree of medical complexity [...] PHILIPPE ZARAGOZA MD on 06/17/2025 12:37 PM [facility] CenterQukziwct48-68-0799 Note* Exam Date Time Procedure Performing Provider Status 06/16/25 4:12 PM Electrocardiogram - EKG - CV JAIRO LIMA MD; Auth (Verified) ECG Final Report Sinus rhythm Atrial premature complex Anterior infarct, age indeterminate Prolonged QT interval Electronic Signature: JAIRO PÉREZ MD 06/17/2025 20:33:19 [facility]Wofohztk14-76-0231 Pastoral care Progress note Pastoral Care Note [...] by Krystian Adams on 06/16/2025 04:08 PM [facility] CenterGiglpppq48-37-5054 Cardiology Consult note Date of Service 06/16/2025 [...] atrial pressure is [address] [facility] 08/2023: SUMMARY: 1. Left ventricle: Systolic function [...] Problem List/Past Medical History Ongoing CAD in ham[place] artery Cardiomyopathy Hypertension Mitral valve regurgitation Syncope [...] MELANIE CLEMONS DO on 06/16/2025 04:25 PM [facility] CenterGwglkstq57-54-0344 Evaluation + Plan noteExtracted from: Title:History and [...] minutes Critical Care time Philippe Zaragoza M.D., [facility] High degree of medical complexity noted in this patient with review of external notes and results of tests, ordering of new tests, and an independent review of the patient. I reviewed tests ordered by other physicians and reviewed my assessment with other health care providers. Future Scheduled Tests Laboratory* Basic Metabolic Panel 03/13/25 [facility] 08-25-2025 Note* Exam Date Time Procedure Performing Provider Status 06/16/25 1:35 PM Electrocardiogram - EKG - CV JAIRO LIMA MD; Auth (Verified) ECG Final Report [employer]AND[employer]ING [employer] PACEMAKER Consider left ventricular hypertrophy Inferior infarct, old Prolonged QT interval Electronic Signature: JAIRO PÉREZ MD 06/17/2025 20:33:08 [facility] CenterDgladoff34-50-3847 Note* Exam Date Time Procedure Performing Provider Status 06/16/25 1:27 PM Echocardiogram, Adult - CV JAIRO BEJARANO MD; Auth (Verified) [facility] [id number] Note. MICRO - Microbiology PROCEDURE: Legionella Urine [...] Locations *1: This test was performed at: [address], [address]- , [facility]08-25-2025 Note. MICRO - Microbiology PROCEDURE: Streptococcus [...] Locations *1: This test was performed at: [address], [address]- , [facility]08-25-2025 Note* Exam Date Time Procedure Performing Provider Status 06/16/25 11:30 AM VL Venous US/Doppler Both Legs(for DVT) EMILIO AVILES MD; Auth (Verified) [facility] [id number] Note* Exam Date Time Procedure Performing Provider Status 06/16/25 10:36 AM XR Chest 1 View ARANZA REDDY MD; [facility] (Verified) [id number] ORIGINAL EXAMINATION: ONE XRAY VIEW OF THE [...] 10:44:49 AM Ordering Provider: VANDANA DOS SANTOS [facility] CenterVnooxhkf21-77-8572 History and physical note Date of Service 06/16/2025 Chief Complaint Transferred from [facility] History of Present Illness This is [...] COPD transfer for pulmonary and hospital At [facility]. Vitals BP 114/67, [...] exacerbation of COPD (emphysematous) and transferred to [facility]. Current vent settings FiO2 40%, tidal [...] minutes Critical Care time Philippe Zaragoza M.D., [facility] High degree of medical complexity noted in this patient with review of external notes and results of tests, ordering of new tests, and an independent review of the patient. I reviewed tests ordered by other physicians and reviewed my assessment with other health care providers. Problem List/Past Medical History Ongoing CAD in ham[place] artery Cardiomyopathy Hypertension Mitral valve regurgitation Syncope [...] DOS SANTOS MD on 06/16/2025 03:41 PM [facility] CenterOqtpvoqs64-57-7006 Note. MICRO - Microbiology PROCEDURE: Blood Culture (bacterial) [*1] SOURCE: Blood BODY SITE: COLLECTED DATE/TIME: 11/04/2024 05:15 EST RECEIVED DATE/TIME: 11/04/2024 15:48 EST START DATE/TIME: 11/04/2024 15:49 EST FREE TEXT SOURCE: M/R 66277; lab 33094; [id number] FINAL REPORTS Final Report [] Verified Date/Time/Personnel: 11/09/2024 15:59 EST Blood Culture: No Growth at 5 days. PRELIMINARY REPORTS Preliminary Report [] Verified Date/Time/Personnel: 11/04/2024 16:59 EST Culture has been received in lab and is no growth to date. Routine cultures are held for 5 days. Performing Locations *1: This test was performed at: [facility], [address] [place] [address], [address] , [facility]01-18-2025 Note. MICRO - Microbiology PROCEDURE: Blood Culture (bacterial) [*1] SOURCE: Blood BODY SITE: COLLECTED DATE/TIME: 11/04/2024 05:45 EST RECEIVED DATE/TIME: 11/04/2024 15:45 EST START DATE/TIME: 11/04/2024 15:46 EST FREE TEXT SOURCE: M/R 44334; lab [id number]; [id number] FINAL REPORTS Final Report [] Verified Date/Time/Personnel: 11/09/2024 15:59 EST Blood Culture: No Growth at 5 days. PRELIMINARY REPORTS Preliminary Report [] Verified Date/Time/Personnel: 11/04/2024 16:59 EST Culture has been received in lab and is no growth to date. Routine cultures are held for 5 days. Performing Locations *1: This test was performed at: [address] [id number] Note. MICRO - Microbiology PROCEDURE: Blood Culture [...] Locations *1: This test was performed at: [address], [address] [place] [address] [id number] Note. MICRO - Microbiology PROCEDURE: Blood Culture [...] Locations *1: This test was performed at: [facility], [address] [place] [address], [facility]- , [facility]01-18-2025 Discharge summary Date of Service 11/09/2024 [...] depression who presented as transfer from [facility] with acute respiratory failure requiring intubation. Initial saturation on 4 L nasal cannula was 70%. Lactic acid was elevated at 4.6. She initially went to ER at [facility] with shortness of breath and wheezing. At the previous hospital patient was thought to have A-fib with RVR and she was started on Cardizem drip, and route patient was in normal sinus rhythm, and in [facility] patient was always in normal sinus rhythm, upon reviewing the EKG that was done in [facility],I do have a suspicion that the [...] Up Follow Up with Mahnaz [facility] for [facility], report to [phone] When:Within 1-2 days Follow Up with ALFONSO OZUNA When:Within 1-2 days Where:[facility] [place] [address]- [phone] Business (1) Follow Up Appointments Transfer of [...] MERCEDES CARTER MD on 11/09/2024 01:12 PM [facility] CenterBxflmtsl42-69-6346 Hospital Discharge instructions Patient Education 11/09/2024 10:15:52 [...] breathing. Follow these instructions at home: Take tukt-fag-pgpxaxo and prescription medicines only as told by [...] 10/14/2014 Document Revised: 09/21/2018 Document Reviewed: 04/26/2017 [email or web address] Patient Education 2020 [employer]. Follow Up Care 11/04/2024 07:53:19 With:Mahnaz Moore for skilled care, report to [phone] Address:Unknown When:1-2 days With:ALFONSO OZUNA Address: [address] [place] [address] [phone] Business (1) When:1-2 days [facility] 01-18-2025 Note Discharge Instructions Thank you for allowing [facility] to assist you with your healthcare needs. The following is importantdischarge information regarding your hospital visit. Your Care Team ALFONSO OZUNA RHINOLOGIST-ENVIRONMENTAL ATTORNEY What to do next Scheduled Follow-Up Appointments Appointment Type When With Where Contact Information [facility] Follow Up 12/06/2024 03:30 PM EST [facility] Appointments Follow Up with Mahnaz Moore for skilled care, report to [phone] When:Within 1-2 days Follow Up with ALFONSO OZUNA When:Within 1-2 days Where:[address] [place] [address] [phone] Business (1) The Following Activity and Diet [...] breathing. Follow these instructions at home: Take lpcu-ner-euxqbps and prescription medicines only as told by [...] 10/14/2014 Document Revised: 09/21/2018 Document Reviewed: 04/26/2017 [email or web address] Patient Education 2020 [employer]. Additional Information VACCINATE! IT SAVES LIVES! Members of the community who have not yet received the COVID-19 vaccine and would like to receive it can visit one of [facility] vaccine clinics. There are many vaccine clinic locations within the [facility]. For locations and available times, please visit [email or web address]/. It is important to note that some COVID mobile vaccine clinics are held outdoors and may be canceled in rainy or stormy conditions. To learn more about pediatric vaccinations (ages 5-11), we invite you to visit the [facility] webpage. https://www.[facility].org/pages/4639-Ntpip-Dvhgutbxqym-Ihhoowmlik-Csflb-Xqv stions.htmlTo learn more about the COVID-19 vaccine, we invite you to visit the CDC website for a list of frequently asked questions.https://www.cdc.gov/coronavirus/2019-ncov/vaccines/faq.html [facility] Patient Portal Access Instructions: Stay connected with your healthcare team and access your personal medical information anytime with the [facility] Patient Portal. Please follow the directions below to create your [facility] account: 1.Access the email account you provided upon registration to the hospital/physician office.2.Look for an invitation email from [facility].3.Open the email and access the invitation link: AcceptInvitation to [facility].4.Fill in the required lr to create your account. To access your account, visit [employer]/[email or web address]. Click the blue button labeled Access Patient [...] who you will allowto register on the [facility] Gardens[facility] Patient Portal for access to your information. You can also access the [facility] Patient Portal on the [facility] Anywhere benitez. Simply click on Patient Portal and then log into your account. If you would like to receive a full copy of your medical records, please contact the [facility] Medical Records Department by calling [phone], Monday through Monday between 8 a.m. and [...] Call your local pharmacy or go to [email or web address] to find one close to you.3.Make use of household items: Use cat litter or old coffee grounds to dispose medications if other options arenot available. Mix your drugs with these household products, seal them in an airtight container andthrow it into the garbage. Call [facility]: [phone] to be sure your drugs can be [...] aware that I should contact my doctor. Patient/Manager Acquisition Signature: Date/Time: Relationship to Patient: Witness Name/Signature: Date/Time: [facility] CenterMkbvwnsj97-77-8315 Note Discharge Instructions Thank you for allowing [facility] to assist you with your healthcare needs. The following is importantdischarge information regarding your hospital visit. Your Care Team ALFONSO OZUNA APRN-ENVIRONMENTAL ATTORNEY What to do next Scheduled Follow-Up Appointments Appointment Type When With Where [facility]/06/[facility]24 03:30 PM NORA RUIZ [facility] and V[facility] Confirmed Follow Up Appointments Follow Up with Mahnaz Moore for skilled care, report to [phone] When:Within 1-2 days Follow Up with ALFONSO OZUNA When:Within 1-2 days Where:[address] [place] [address]- [phone] Business (1) The Following Activity and Diet [...] to receive it can visit one of [facility] vaccine clinics. There are many vaccine clinic locations within the [facility]. For locations and available times, please visit [email or web address]/. It is important to note that some COVID mobile vaccine clinics are held outdoors and may be canceled in rainy or stormy conditions. To learn more about pediatric vaccinations (ages 5-11), we invite you to visit the [facility] webpage. https://www.[facility].org/pages/5202-Scoxs-Lkebsgeopuc-Ktyabbybmo-Xzdsf-Skw stions.htmlTo learn more about the COVID-19 vaccine, we invite you to visit the CDC website for a list of frequently asked questions.https://www.cdc.gov/coronavirus/2019-ncov/vaccines/faq.html [facility] Patient Portal Access Instructions: Stay connected with your healthcare team and access your personal medical information anytime with the [facility] Patient Portal. Please follow the directions below to create your [facility] account: 1.Access the email account you provided upon registration to the hospital/physician office.2.Look for an invitation email from [facility].3.Open the email and access the invitation link: AcceptInvitation to [facility].4.Fill in the required lr to create your account. To access your account, visit [employer]/Serious USAt. Click the blue button labeled Access Patient Portal and then log in with the username and password that you created in the steps above. You will be able to view your test results, lab results, a summary of your visits, upcoming appointments and more. There is also a convenient messaging option where you can send secure messages to your Kinoptovider. In addition, you will have the ability to download any documents or summaries to your computer and/or send the information securely to a physician. Remember that your healthcare information is confidential, so carefully consider who you will allowto register on the [facility] Patient Portal for access to your information. You can also access the [facility] Patient Portal on the [facility] Anywhere benitez. Simply click on Patient Portal and then log into your account. If you would like to receive a full copy of your medical records, please contact the [facility] Medical Records Department by calling [phone], Monday through Monday between 8 a.m. and [...] Call your local pharmacy or go to [email or web address] to find one close to you.3.Make use of household items: Use cat litter or old coffee grounds to dispose medications if other options arenot available. Mix your drugs with these household products, seal them in an airtight container andthrow it into the garbage. Call [facility]: [phone] to be sure your drugs can be [...] aware that I should contact my doctor. Patient/Manager Acquisition Signature: Date/Time: Relationship to Patient: Witness Name/Signature: Date/Time: [facility] CenterQajyoksy22-67-4638 Respiratory therapy Hospital Progress note Respiratory Therapy [...] by DESHAWN Hill on 11/09/2024 07:30 AM [facility] CenterLwrueami89-99-2602 Note Subjective: Patient seen for pneumonia versus [...] 08 06:19)L 54(NOV 07 23:30)70(NOV 08 06:19) HSX761(NOV 08 14:34)L 87(NOV 08 11:03)H 198(NOV 08 [...] MERCEDES CARTER MD on 11/08/2024 03:14 PM [facility] CenterMplywhzq26-24-4540 Note Date of Service 11/07/23 Subjective This is ICU day #4 for Marecla, a 69-year-old female past medical history coronary artery disease status post stenting in the , 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 Initial saturation on 4 L nasal cannula was 70%. Lactic acid was elevated at 4.6. She initially went to ER at [facility] with shortness of breath and wheezing. She [...] EMILIO DERAS MD on 11/07/2024 11:10 AM [facility] CenterBcspfyye55-57-2988 Consult note Date of Service 11/05/2024 Reason [...] Problem List/Past Medical History Ongoing CAD in ham[place] artery Cardiomyopathy Procedure/Surgical History Echocardiogram: 09/04/23 Cardiac [...] JACQUELINE FAUSTIN DPM on 11/05/2024 05:02 PM [facility] CenterVtghgpij47-37-2883 Note* Exam Date Time Procedure Performing Provider Status 11/07/24 6:39 AM XR Chest 1 View GENARO NO MD; Auth (Verified) [id number] ORIGINAL EXAMINATION: ONE XRAY VIEW OF THE [...] 11/07/2024 6:54:29 AM Ordering Provider: EMILIO REYES [facility] CenterPwttnwjr61-88-4035 Note Date of Service 11/06/2024 Subjective This is ICU day #3 for Marcela, a 69-year-old female past medical history coronary artery disease status post stenting in the , 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 Initial saturation on 4 L nasal cannula was 70%. Lactic acid was elevated at 4.6. She initially went to ER at [facility] with shortness of breath and wheezing. She [...] EMILIO DERAS MD on 11/06/2024 10:46 AM [facility] CenterBmhlgoax10-58-1538 Note* Exam Date Time Procedure Performing Provider Status 11/06/24 6:28 AM XR Chest 1 View GENARO NO MD; Auth (Verified) [id number] ORIGINAL EXAMINATION: ONE XRAY VIEW OF THE [...] 11/06/2024 6:39:04 AM Ordering Provider: EMILIO REYES [facility] CenterEhwqtepj66-76-3660 Consult note Date of Service 11/05/2024 Reason [...] Problem List/Past Medical History Ongoing CAD in ham[place] artery Cardiomyopathy Procedure/Surgical History Echocardiogram: 09/04/23 Cardiac [...] JACQUELINE FAUSTIN DPM on 11/05/2024 05:02 PM [facility] CenterJjwgbfok73-36-1198 Note Date of Service 11/05/2024 Subjective This is ICU day #2 for Marcela, a 69-year-old female past medical history coronary artery disease status post stenting in the , 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 Initial saturation on 4 L nasal cannula was 70%. Lactic acid was elevated at 4.6. She initially went to ER at [facility] with shortness of breath and wheezing. She [...] EMILIO DERAS MD on 11/05/2024 01:07 PM [facility] CenterPeypxjdt96-21-9152 Note* Exam Date Time Procedure Performing Provider Status 11/05/24 10:45 AM Echocardiogram, Adult - CV MARY BERNAL MD; Auth (Verified) [facility] CenterYuydanxr74-11-0198 Note* Exam Date Time Procedure Performing Provider Status 11/05/24 6:27 AM XR Chest 1 View GENARO NO MD; Auth (Verified) [id number] ORIGINAL EXAMINATION: ONE XRAY VIEW OF THE [...] 6:36:29 AM Ordering Provider: VANDANA DOS SANTOS [facility] CenterKsctemdd09-49-4214 Note* Exam Date Time Procedure Performing Provider Status 11/04/24 8:[address] Angiography Chest w/ Contrast PARISH THURMAN MD; Auth (Verified) [id number] ORIGINAL EXAMINATION: CTA OF THE CHEST 11/04/2024 [...] 11/04/2024 8:33:11 PM Ordering Provider: KAYLA RYAN [facility] CenterAlvygwal76-91-0382 Note. MICRO - Microbiology PROCEDURE: Streptococcus Pneumoniae [...] Locations *1: This test was performed at: [facility], [address] [place] [address], [facility] , [facility]01-13-2025 Note. MICRO - Microbiology PROCEDURE: Legionella [...] Locations *1: This test was performed at: [facility], [address] [place] [address], [id number] , [facility] [id number] History and physical note Date of Service 11/04/2023 Chief Complaint breathlessnessx1 day History of Present Illness Patient is a 69 year [facility] on 11/04/2024 for concerns of breathlessness [...] documentation that was sent from [facility]. Per documentation, appears that patient was [...] While in the ER at [facility], patient was also found to have an irregularly irregular rhythm and was also tachycardic all the way up to 143 bpm.For this purpose as well as elevated blood pressures, patient was given Cardizem loading as well asCardizem drip. On the way via the ambulance to [facility], patient converted and is now in normal sinus rhythm. Roughly at about 10:30 AM this morning. While at [facility] preliminary vitals, Lab work, radiological tests [...] protocols. -Obtain imaging reads from [facility]. -For the time being, we will [...] Problem List/Past Medical History Ongoing CAD in ham[place] artery Cardiomyopathy Procedure/Surgical History Echocardiogram: 09/04/23 Cardiac [...] KAYLA RYAN MD on 11/04/2024 03:48 PM [facility] CenterLnnltckq88-90-2482 Evaluation + Plan noteExtracted from: Title:History and [...] protocols. -Obtain imaging reads from [facility]. -For the time being, we will [...] and depression who presented as transfer from [facility] with acute respiratory failure requiring intubation. Initial saturation on 4 L nasal cannula was 70%. Lactic acid was elevated at 4.6. She initially went to ER at [facility] with shortness of breath and wheezing. She [...] Appointment Date:12/06/2024 03:30:00 PM Scheduled Provider:NORA ROBERT [facility] Follow Up Diagnostic Tests Pending * Culture Respiratory with Gram Stain 11/04/24 Future Scheduled Tests Laboratory* Basic Metabolic Panel 01/22/24 * Basic Metabolic Panel 02/08/24 * Basic Metabolic Panel 01/31/24 [facility] 01-13-2025 Note* Exam Date Time Procedure Performing Provider Status 11/04/24 12:34 PM XR Abdomen AP ARANZA REDDY MD; Auth (Verified) [id number] ORIGINAL EXAMINATION: ONE XRAY VIEW OF THE [...] Sign Date: 11/04/2024 12:56:39 PM Ordering Provider: [facility]01-13-2025 Note* Exam Date Time Procedure Performing Provider Status 11/04/24 12:32 PM XR Chest 1 View ARANZA REDDY MD; [facility] (Verified) [id number] ORIGINAL EXAMINATION: ONE XRAY VIEW OF THE [...] 11/04/2024 12:56:39 PM Ordering Provider: KAYLA RYAN [facility] CenterQapyukdr04-49-6081 History and physical note Date of Service 11/04/2023 Chief Complaint breathlessnessx1 day History of Present Illness Patient is a 69 year [facility] female [facility] on 11/04/2024 for concerns of breathlessness [...] documentation that was sent from [facility]. Per documentation, appears that patient was [...] While in the ER at [facility], patient was also found to have an irregularly irregular rhythm and was also tachycardic all the way up to 143 bpm.For this purpose as well as elevated blood pressures, patient was given Cardizem loading as well asCardizem drip. On the way via the ambulance to [facility], patient converted and is now in normal sinus rhythm. Roughly at about 10:30 AM this morning. While at [facility] preliminary vitals, Lab work, radiological tests [...] protocols. -Obtain imaging reads from [facility]. -For the time being, we will [...] Problem List/Past Medical History Ongoing CAD in ham[place] artery Cardiomyopathy Procedure/Surgical History Echocardiogram: 09/04/23 Cardiac [...] KAYLA RYAN MD on 11/04/2024 03:48 PM [facility] CenterQdqjxxbq77-45-4928 [facility]12-12-2024 History of Present illness Narrative* Kenzie Fontana [...] June she had COPD exacerbation, went to [place] and was transferred to [place] per the patient. Rpeorts since that admission she still uses albuterol daily, and trelegy daily. She is currently taking Plavix, ASA and aspirin, she is unsure if she had an CO in the past or who started her [...] Referral to Cardiology 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, unspecified vessel [...] start losartan 50mg daily documented in this [facility] Work Phone: 1(813) 760-997311-27-2023 History of Present illness Narrative* Elvin Blanc PA-C - 09/18/2023 11:50 AM EST Subjective Patient ID: Zabrina Hsu is a 68 y.o. female who presents for Establish Care (Patient here to get established as a new patient and transferring from [place]./Patient dx with COPD, seen in ER last [...] Patient was recently admitted to hospital in [facility]. Patient is not sure why [...] T4 if abnormal 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, unspecified vessel [...] type (CMS/HCC) [I25.110] 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, unspecifiedvessel or lesion type (CMS/HCC) [I10] Primary hypertension [I50.9] Congestive heart failure, unspecified HF chronicity, unspecified heart failure type (CMS/HCC) documented in this [facility] Work Phone: [phone]) 182-713411-16-2023 Note. MICRO - Microbiology PROCEDURE: Blood Culture [...] Locations *1: This test was performed at: [facility], [address] [place] [address], [facility] , [facility])09-07-2023 Note. MICRO - Microbiology PROCEDURE: Blood Culture [...] Locations *1: This test was performed at: [address]09-07-2023 Note. MICRO - Microbiology PROCEDURE: Blood [...] Locations *1: This test was performed at: [address], [address] [place] [address] ([facility]09-07-2023 Note. MICRO - Microbiology PROCEDURE: Blood [...] Locations *1: This test was performed at: [facility], [address] [place] [address], [facility]- , [facility] ([place])09-06-2023 Hospital Discharge instructions Patient Education 09/06/2023 11:21:47 [...] Document Reviewed: 10/10/2014 ExitCare Patient Information 2015 [employer]. This information is not intended to replace [...] breathing. Follow these instructions at home: Take wqfx-cyv-ljsgbot and prescription medicines only as told by [...] 10/14/2014 Document Revised: 09/21/2018 Document Reviewed: 04/26/2017 [employer]icket[employer] Patient Education 2020 [employer]. 09/06/2023 11:20:40 Home Oxygen Use, Adult Home [...] oxygen Your health care provider or a major account representative from your medical logistics specialist company will show you how touse your [...] move around. Follow instructions from your medical logistics specialist company about how to safely secure your tank. Make sure you have enough oxygen for the amount of time you will be away from home. If you are planning air travel, contact the airline to find out if they allow the use of an approved portable oxygen concentrator. You may also need documents from your health care provider and medical logistics specialist company before you travel. General safety tips If you use an oxygen cylinder, make sure it is in a stand or secured to an object that will not move (fixed object). If you use liquid oxygen, make sure its container is kept upright. If you use an oxygen concentrator: ?Tell your [employer]. Make sure you are given priority service [...] Summary Your health care provider or a major account representative from your medical logistics specialist company will show you how touse your [...] 12/29/2004 Document Revised: 03/28/2019 Document Reviewed: 05/02/2017 [employer] Patient Education 2020 [employer]. Follow Up Care 09/02/2023 04:20:17 With:Ronaldo Mills will be your oxygen supplier. Please call [phone] for questions or concerns. Address: When: Unknown With:FERCHO VILLASEÑOR Address: [address] [place] [phone] Business (1) When:1-2 days With:PHILIPPE ZARAGOZA MD Address: [address] [address] [place] [address] [phone] When:5 to 7 days With:ASTRID ROBERT MD Address: [address] [place], [place] [address]- [phone] When:09/13/2023 15:00:00 With:[facility] will contact you for an appointment If you have any questions please call:[phone]. Address: When: Unknown [facility] 11-15-2023 Note Discharge Instructions Thank you for allowing [facility] to assist you with your healthcare needs. The following is importantdischarge information regarding your hospital visit. Your Care Team DO FERCHO VILLASEÑOR What to do next Scheduled Follow-Up Appointments Appointment Type When Where Contact [facility] Follow [facility] 09/13/2023 03:00 PM EST [facility] Follow Up with ASTRID ROBERT MD When 09/13/2023 03:00 PM EST Where: [address] [place] [address]- [phone] Follow Up with PHILIPPE ZARAGOZA MD When Within 5 to 7 days Where: [address] [address] [place] [address]- [phone] Follow Up with [facility] will contact you for an appointment If you have any questionsplease call:[phone]. When Where: The Following Activity and Diet [...] needed for wheezing Refills: 3 Pickup at [facility] New clopidogrel (Plavix 75 mg oral tablet) 1 tab(s) by mouth Once a day Refills: 3 Pickup at [facility] New fluticasone/ umeclidinium/ vilanterol (Trelegy Ellipta 100 mcg-62.5 mcg-25 mcg/ inh inhalation powder) 1 puff(s) by inhalation Once a day Refills: 3 at the same time every day. Following administration, rinse mouth with water after use (do not swallow). Pickup at [facility] New furosemide (Lasix 20 mg oral tablet) 1 tab(s) by mouth Once a day Refills: 3 Pickup at [facility] New metoprolol (metoprolol succinate 25 mg oral TABLET extended release) 1 tab(s) by mouth Twice daily with meals Refills: 3 Pickup at [facility] New rosuvastatin (rosuvastatin 20 mg oral tablet) 2 tab(s) by mouth Once a day Refills: 3 Pickup at [facility] New sacubitril-valsartan (Entresto 24 mg-26 mg oral tablet) 1 tab(s) by mouth Two (2) times a day Refills: 3 Pickup at [facility] Unchanged aspirin (aspirin 81 mg oral delayed release tablet) 1 tab(s) by mouth Every day Unchanged buPROPion (Wellbutrin SR) 100 Milligram by mouth Once a day Unchanged oxcarbazepine (Trileptal) 150 Milligram by mouth Daily at bedtime Pharmacy Information [facility]: [address], [place] [id number] [phone] Please take this list to your next [...] wireless accessories such as remote control, or Veeboxoth devices. Do not reuse a needle, syringe [...] blood pressure, such as diet pills or bofxd-mep-pnlm medicine. What are the possible side effects [...] may report side effects to FDA at 6-542-EBH-1675. What other drugs will affect furosemide? Sometimes [...] drugs may affect furosemide, including prescription and eope-fbp-gxjgqmg medicines, vitamins, and herbal products. Not all [...] to ensure that the information provided by [employer]. ('Multum') is accurate, up-to-date, and complete, but no guarantee is made to that effect. Drug information contained herein may be time sensitive. Heroic information has been compiled for use by healthcare practitioners and consumers in the [place] and therefore Heroic does not warrant that uses outside of the [place] are appropriate, unless specifically indicated otherwise. [employer] drug information does not endorse drugs, diagnose patients or recommend therapy. [employer] drug information isan informational resource designed to assist licensed healthcare practitioners in caring for their [facility] and/or to serve consumers viewing this service as a supplement to, and not a substitute for, the expertise, skill, knowledge and judgment of healthcare practitioners. The absence of a warningfor a given drug or drug combination in no way should be construed to indicate that the drug or drug combination is safe, effective or appropriate for any given patient. [employer] does not assume any responsibility for any aspect of healthcare administered with the aid of information Heroic provides. The information contained herein is not intended to cover all possible uses, directions, precautions, warnings, drug interactions, allergic reactions, or adverse effects. If you have questions about the drugs you are taking, check with your doctor, nurse or pharmacist. Copyright 5378-2299 [facility] [employer]. Version: 18.. Revision Date: 12/30/2022. metoprolol (oral/injection) [...] may report side effects to FDA at 9-673-LYR-5975. What other drugs will affect metoprolol? Tell your doctor about all your current medicines. Many drugs can affect metoprolol, especially: any other heart or blood pressure medications; epinephrine (Epi-Pen); an antidepressant; an ergot medicine--dihydroergotamine, ergonovine, ergotamine, methylergonovine; or an MAO inhibitor--isocarboxazid, linezolid, phenelzine, rasagiline, selegiline, tranylcypromine. This list is not complete and many other drugs may affect metoprolol. This includes prescription and agza-lsw-hzhtycf medicines, vitamins, and herbal products. Not all [...] to ensure that the information provided by [employer]. ('[employer]') is accurate, up-to-date, and complete, but no guarantee is made to that effect. Drug information contained herein may be time sensitive. Heroic information has been compiled for use by healthcare practitioners and consumers in the [place] and therefore Heroic does not warrant that uses outside of the [place] are appropriate, unless specifically indicated otherwise. [employer] drug information does not endorse drugs, diagnose patients or recommend therapy. [employer] drug information isan informational resource designed to [...] effective or appropriate for any given patient. [employer] does not assume any responsibility for any aspect of healthcare administered with the aid of information Heroic provides. The information contained herein is not intended to cover all possible uses, directions, precautions, warnings, drug interactions, allergic reactions, or adverse effects. If you have questions about the drugs you are taking, check with your doctor, nurse or pharmacist. Copyright 3897-4122 [employer]. Version: 19.. Revision Date: 05/31/2023. Education Materials [...] Reviewed: 10/10/2014 [facility] Patient Information 2015 [employer]. This information is not intended to replace [...] breathing. Follow these instructions at home: Take hmkc-znn-cunjsqy and prescription medicines only as told by [...] 10/14/2014 Document Revised: 09/21/2018 Document Reviewed: 04/26/2017 TicketGoose.[employer] Patient Education 2020 TicketGo[employer] Inc. Home Oxygen Use, Adult When a [...] oxygen Your health care provider or a major account representative from your medical logistics specialist company will show you how touse your [...] move around. Follow instructions from your medical logistics specialist company about how to safely secure your tank. Make sure you have enough oxygen for the amount of time you will be away from home. If you are planning air travel, contact the airline to find out if they allow the use of an approved portable oxygen concentrator. You may also need documents from your health care provider and medical logistics specialist company before you travel. General safety tips [...] Summary Your health care provider or a major account representative from your medical logistics specialist company will show you how touse your [...] 12/29/2004 Document Revised: 03/28/2019 Document Reviewed: 05/02/2017 TicketGoose.[employer] Patient Education 2020 TicketGoose.com Inc. Additional Information VACCINATE! IT SAVES LIVES! Members of the community who have not yet received the COVID-19 vaccine and would like to receive it can visit one of [facility] vaccine clinics. There are many vaccine clinic locations within the [facility]. For locations and available times, please visit [email or web address].coronavirus.[place].gov/. It is important to note that some COVID mobile vaccine clinics are held outdoors and may be canceled in rainy or stormy conditions. To learn more about pediatric vaccinations (ages 5-11), we invite you to visit the [facility] webpage. https://www.[facility].org/pages/0122-Xiflq-Oqxmhlfhxdm-Wlwiflhywx-Kssyg-Lne stions.htmlTo learn more about the COVID-19 vaccine, we invite you to visit the CDC website for a list of frequently asked questions.https://www.cdc.gov/coronavirus/2019-ncov/vaccines/faq.html [facility] Patient Portal Access Instructions: Stay connected with your healthcare team and access your personal medical information anytime with the [facility] Patient Portal. Please follow the directions below to create your [facility] account: 1.Access the email account you provided upon registration to the hospital/physician office.2.Look for an invitation email from [facility].3.Open the email and access the invitation link: AcceptInvitation to [facility].4.Fill in the required lr to create your account. To access your account, visit [employer]. Click the blue button labeled Access Patient [...] you will allowto register on the [facility] Patient Portal for access to your information. You can also access the [facility] Patient Portal on the [facility] benitez. Simply click on Patient Portal and then log into your account. If you would like to receive a full copy of your medical records, please contact the [facility] Medical Records Department by calling [phone], Monday through Monday between 8 a.m. and [...] Call your local pharmacy or go to [email or web address] to find one close to you.3.Make use of household items: Use cat litter or old coffee grounds to dispose medications if other options arenot available. Mix your drugs with these household products, seal them in an airtight container andthrow it into the garbage. Call [facility]: [phone] to be sure your drugs can be [...] combine opioids with (more content not included)... [facility] CenterQjin[facility]fxh20-67-0992 Respiratory therapy Hospital Progress note Respiratory Therapy [...] by DESHAWN Cuenca on 09/06/2023 10:21 AM [facility] CenterYjnxhfus51-07-2095 Discharge summary Date of Service 09/06/23 Discharge [...] (R74.8 - ICD-10-CM) Atherosclerotic heart disease of hamilton coronary artery without angina pectoris (I25.10 - [...] BID, # 60 tab(s), 3 Refill(s), Pharmacy: [facility], 157.5, cm, 09/02/23 [...] qDay, # 30 tab(s), 3 Refill(s), Pharmacy: [facility], 157.5, cm, 09/02/23 6:47:00 EST, Height, kg, 09/02/23 6:47:00 EST, Dosing Weight Ordered: Plavix 75 mg oral tablet,Dose : 75 mg = 1 tab(s), Oral, qDay, # 30 tab(s), 3 Refill(s), Pharmacy: [facility], 157.5, cm, 09/02/23 [...] swallow)., # 60 EA, 3 Refill(s), Pharmacy: [facility], 157.5, cm, 09/02/23 6:47:00 EST, Height, kg, 09/02/23... Ordered: albuterol MDI (90 mcg/inh) CFC free inhalation aerosol,1 puff(s), Inhalation, q4h, PRN as needed for wheezing, # 8.5 gram(s), 3 Refill(s), Pharmacy: [facility], 157.5, cm, 09/02/23 6:47:00 EST, Height, kg, 09/02/23 6:47:00 EST, Dosing Weight Discontinued: losartan,Start: 09/04/23 11:43:00 EST, Dose = 25 mg, = 1 tab(s), Oral, qDay, 09/04/2311:43:00 EST Discontinued: losartan 25 mg oral tablet,Dose : 25 mg = 1 tab(s), Oral, qDay, # 30 tab(s), 3 Refill(s), Pharmacy: [facility], 157.5, cm, 09/02/23 6:47:00 EST, Height, kg, 09/02/23 6:47:00 EST, Dosing Weight Ordered: metoprolol succinate 25 mg oral TABLET extended release,Dose : 25 mg = 1 tab(s), Oral, BIDM, # 60 tab(s), 3 Refill(s), Pharmacy: [facility], 157.5, cm, 09/02/23 6:47:00 EST, Height, kg, 09/02/23 6:47:00 EST, Dosing Weight Ordered: rosuvastatin 20 mg oral tablet,Dose : 40 mg = 2 tab(s), Oral, qDay, # 60 tab(s), 3 Refill(s), Pharmacy: [facility], 157.5, cm, 09/02/23 [...] PM EST Where: [address] [facility] [place] [address]- [phone] Follow Up with PHILIPPE ZARAGOZA MD When Within 5 to 7 days Where: [address] [address] [place] [address] [phone] Follow Up with [facility] will contact you for an appointment If you have any questionsplease call:[phone]. When Where: Follow Up Appointments No qualifying data available. Follow Up Labs/Studies Discharge Labs No Follow-up Labs Discharge Studies No Follow-up Studies Discharge Diet No qualifying data available. Discharge Activity No qualifying data available. Readmission Risk/Palliative Score LACE Score: 11 (09/04/23 12:59:00) Palliative Total Score: 1 (09/04/23 13:00:00) Digitally Signed by CARLOS NOONAN MD on 09/06/2023 10:20 AM [facility] CenterYjzajjes93-25-9559 Cardiology Progress note Subjective No acute overnight [...] CARLOS NOONAN MD on 09/05/2023 03:29 PM [facility] CenterTvqvgivs23-73-9630 Cardiology Progress note Subjective No acute overnight [...] CARLOS NOONAN MD on 09/04/2023 12:14 PM [facility] CenterYktkivah18-02-9142 Note Date of Service 09/04/2023 Chief Complaint [...] by ROSY MORALEZ on 09/04/2023 02:58 PM [facility] CenterEvsalxbq43-15-9552 Pulmonary Progress note Date of Service 09/04/2023 [...] exam. Agree with diuresis Philippe Zaragoza M.D., [facility] Digitally Signed by PHILIPPE ZARAGOZA MD on 09/04/2023 01:22 PM [facility] CenterIzdfynjw55-17-0852 Cardiology Progress note Subjective No acute overnight [...] due to COPD versus CHF exacerbation. [facility] results personally reviewed along with TTE, RWMA [...] CARLOS NOONAN MD on 09/04/2023 12:14 PM [facility] CenterOeirdlzr88-78-3309 Note Date of Service 09/04/2023 Chief Complaint [...] by ROSY MORALEZ on 09/04/2023 02:58 PM [facility] CenterXqyidbyr95-72-0301 Note* Exam Date Time Procedure Performing Provider Status 09/04/23 10:04 AM Echocardiogram, Adult - CV Auth (Verified) [facility] 11-13-2023 Note. MICRO - Microbiology PROCEDURE: [...] Locations *1: This test was performed at: [address], [address] [place] [address] ([place])09-04-2023 Note. MICRO - Microbiology PROCEDURE: Culture Respiratory [...] Locations *1: This test was performed at: [address], [address] [place] [address] ([place])09-04-2023 Note ORIGINAL EXAMINATION: ONE XRAY VIEW OF [...] Sign Date: 09/04/2023 6:42:09 AM Ordering Provider: [facility]11-12-2023 Note Date of Service 09/03/2023 Reason [...] continue to follow-up. Note was written using [employer] director teen post software. Some of the meaning of the words and sentences might have changed during director teen post, if there was ever some confusion about [...] ROSINA BRO MD on 09/03/2023 05:02 PM [facility] CenterCdvfyhaw16-43-3079 Cardiology Consult note Date of Service 09/03/2023 [...] of this technology. Sonia Canseco DO, MS Grading Machine Feeder (PGY-6) Pager [phone]/ Cortext Problem List/Past Medical History Ongoing No [...] SONIA CANSECO DO on 09/03/2023 08:21 AM [facility] CenterTwimgpik41-94-8938 Note* Exam Date Time Procedure Performing Provider Status 09/03/23 11:40 AM Cardiac Catheterization -CV Auth (Verified) [facility] 11-12-2023 Note Date of Service 09/03/2023. Day #2 in MICU Radha Hsu is a 68-year-old female with a past medical history of COPD, bipolar disorder, tobacco abuse, GERD, anxiety, depression, suicidal attempt in the past [2010], and personality disorder.The patient presented to [facility] for shortness of breath. The patient [...] results, the patient was transferred to the [facility] ICU. During this admission it was [...] JHONNY VALENCIA MD on 09/03/2023 11:32 AM [facility] CenterQonamdgy91-04-1060 Nurse Progress note Attempted to call patient's , per patient request, to update him on patient's plan of care. did not answer home phone, voicemail box was full and unable to leave a message. Patient provided 's cell phone number. No answer and again unable to leave a message. Digitally Signed by Pamella Tao RN on 09/03/2023 09:17 AM [facility] CenterGonueefs21-39-0121 Cardiology Consult note Date of Service 09/03/2023 [...] of this technology. Sonia Canseco DO, MS Grading Machine Feeder (PGY-6) Pager [phone]/ Cortext Problem List/Past Medical History Ongoing No [...] SONIA CANSECO DO on 09/03/2023 08:21 AM [facility] CenterGyiteavm28-04-3732 NoteSinus rhythm Atrial premature complex Prolonged QT interval T WAVE INVERSION CONCERNING FOR ISCHEMIA Electronic Signature: ADAM MALLORY MD 09/03/2023 16:06:55[facility] 11-11-2023 Note. MICRO - Microbiology PROCEDURE: [...] Locations *1: This test was performed at: [address], [facility] ([place])09-02-2023 Note. MICRO - Microbiology PROCEDURE: Blood Culture [...] *1: This test was performed at: [facility], [facility] , [facility] ([facility]09-02-2023 Note. MICRO - Microbiology PROCEDURE: Blood [...] Locations *1: This test was performed at: [address], [facility] , [facility] ([facility]09-02-2023 Note. MICRO - Microbiology PROCEDURE: Blood [...] Locations *1: This test was performed at: [address], [facility] , [facility] ([place])09-02-2023 NoteSinus rhythm Atrial premature complex Probable anterior infarct, age indeterminate Prolonged QT interval Electronic Signature: ADAM MALLORY MD [facility] NoteSinus rhythm Atrial premature complex Anterior infarct, old Nonspecific T abnormalities, lateral leads Prolonged QT interval Electronic Signature: ADAM MALLORY MD 09/03/2023 16:06:01[facility] 11-11-2023 Evaluation + Plan noteExtracted from: [...] 09/02/23 * Streptococcus Pneumoniae Urine Antig 09/02/23 [facility] 11-11-2023 History and physical note Date [...] JHONNY VALENCIA MD on 09/02/2023 01:24 PM [facility] CenterAsbavrxr22-65-8641 Note ORIGINAL EXAMINATION: LIMITED ABDOMINAL RKFXSLOVHS84/11/2023 12:19 pm COMPARISON: None HISTORY: ORDERING SYSTEM [...] Sign Date: 09/02/2023 2:27:43 PM Ordering Provider: [facility]11-11-2023 NoteSinus rhythm Atrial premature complex Anterior infarct, old Nonspecific T abnormalities, lateral leads Prolonged QT interval Electronic Signature: ADAM MALLORY MD 09/03/2023 16:05:52[facility] 11-11-2023 Note ORIGINAL EXAMINATION: ONE XRAY [...] Sign Date: 09/02/2023 8:06:12 AM Ordering Provider: [facility]11-11-2023 History and physical note Date of Service 09/02/2023 Chief Complaint Shortness of breath History of Present Illness Marcela Hsu is a 68-year-old female with a past medical history of COPD, bipolar disorder, tobacco abuse, GERD, anxiety, depression, suicidal attempt in the past [2011], and personality disorder.The patient presented to [facility] for shortness of breath. The patient [...] results, the patient was transferred to the [facility] ICU. Of note Echo on 12/27/2016: [...] was 3.7 on admission The patient's admitting [place] lactic acid was 1.8. We will not [...] PM Digitally Signed by JHONNY VALENCIA MD [facility] note Author Eleazar Valle [facility] Note Date/Time July 16, 2025 10:10am [facility] Medical Records Department [address] [place] [address] [place] [address] Consultation - [employer] Technician 07/16/25811 MR#: [id number] Acct: [id number] Name: ZABRINA HSU Rep #:[id number] : [...] antimicrobials and Lasix. [facility]. 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 Reading Location[facility] Chest CTA 07/16/25 03:25 IMPRESSION: No demonstrated PE, or thoracic aortic aneurysm Underlying emphysema with superimposed CHF, pneumonitis, bronchitis, free- flowing bilateral pleural effusions and bibasilar atelectasis ETT tip is in the right mainstem bronchus and should be retracted 3-4 cm, NG tube tip in satisfactory position No suspicious adenopathy Degenerative bony changes [place] Alert: ET tube tip in the SADAF The critical findings in the findings and impression above were relayed directlyby me by telephone to Bernardo Sharif on 07/16/2025 at 6:56 am with readback verification. Reading Location: [facility] Abdomen/Pelvis CT 07/16/25 06:40 IMPRESSION: No [...] Diffuse atherosclerosis Degenerative bony changes Reading Location: [facility] Charges/Coding Procedures Hospitalists Procedures: 58960 Critical Care 1st Hr 07/16/25 1010 <Electronically signed by Eleazar Valle DO> Cosigner Signature (if applicable): CC: SEUN Ozuna~ Signed [facility] Work Phone: Consult note Author Noelle Yañez [facility] Note Date/Time July 16, 2025 10:25am [facility] Medical Records Department [address] [place] [address] Pharmacokinetic/Renal -Consult 07/16/25 0941 MR#: [id number] Acct: [id number] Name: ZABRINA HSU Rep #:[id number] : [...] Valle DO CC: ~ Signed [facility] Work Phone: Consult note Author Noelle Yañez [facility] Note Date/Time July 18, 2025 12:13pm [facility] Medical Records Department [address] [place] [address] Pharmacokinetic/Renal -Consult 07/18/25 1128 MR#: [id number] Acct: [id number] Name: ZABRINA HSU Rep #:[id number] : [...] Valle DO CC: ~ Signed [facility] Work Phone: Consult note Author Mateo Gonzales [facility] Note Date/Time July 21, 2025 7:34am [facility] Medical Records Department [address] [place] [address] Pharmacokinetic/Renal -Consult 07/20/25 1137 MR#: [id number] Acct: [id number] Name: ZABRINA HSU Rep #:[id number] : [...] Valle DO CC: ~ Signed [facility] Work Phone: Consult note Author Apple kaiser [facility] Note Date/Time July 22, 2025 1:59pm [facility] Medical Records Department [address] [place] [address] Consultation - Palliative Care 07/22/25 1215 MR#: [id number] Acct: [id number] Name: ZABRINA HSU Rep #:[id number] : 1955 70 From: Apple KOHLI PCP: SEUN Alvarez Status:ADM IN Location: ICU ICU01-1 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 Charges/Coding Palliative Care Palliative Care: 07392 New Pt Consult 80+ min HPI Current [...] clinical picture evolves. I did update social media job titles about patient and family's decision about outpatient [...] and OA who presents to [facility] ER complaining ofSOB. Ms. Hsu was [...] a Healthcare Power No 07/16/25 07:58 of Concrete Grinder Operator? Do You Want Additional Declined 07/16/25 07:58 Information on Advanced Directives or Healthcare Proxy/DPOA comments: Patient states that they do have legal paperworkand that her , her would be her decision-maker if she is unable to make decisions for herself. Psychosocial/Spiritual Information Living situation/Marital status: Spoke spoke with and 16-year-old grandson. Geographic location: [place] Supports: Family Voodoo/Grazyna or spiritual preference: Mu-Ism Prior functional status: Patient was unable to [...] 84.7 H, Lymph % (Auto) 8.4 L, Cloud % (Auto) 4.1, Eos % (Auto) 0.0, [...] a result of this Palliative Care Encounter: [[id number], [id number] ] minutes were spent in total for [...] care conversations as clinical picture evolves. 07/22/25 7112 <Electronically signed by Apple KOHLI> Cosigner Signature (if applicable): CC: SEUN Ozuna~ Signed [facility] Work Phone: Consult note Author Kendall Doran [facility] Note Date/Time July 26, 2025 4: 11pm [facility] Medical Records Department [address] [place] [address] Consultation - Cardiology 07/26/25 1609 MR#: [id number] Acct: [id number] Name: ZABRINA HSU Rep #:[id number] : 1955 70 From: Kendall be MD PCP: SEUN Alvarez Status:DIS IN Location: [facility] [id number]- [id number] Assessment & Plan Assessment/Plan (1) Multifocal atrial tachycardia: PLAN: Patient's heart rate is currently controlled. Continue current medications at this time. She can follow-up with [facility] as an outpatient. HPI Consult [...] improvement in her heart rate. 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 Reading Location: [facility] Risk Score for UA/STEMI Assesmment (YES = 1) Risk Stratification Applicable: No 07/26/25 1611 <Electronically signed by Kendall Doran MD> Cosigner Signature (if applicable): CC: SEUN Ozuna~ Signed [facility] Work Phone: Discharge summary Author Bernardo Sharif [facility] Note Date/Time July 16, 2025 7:03am [facility] Medical Records Department [address] [place] [address] Emergency Department Summary 07/16/25 MR#: [id number] Acct: [id number] Name: ZABRINA HSU Rep #:[id number] : 1955 70 From: Bernardo Small PCP: SEUN Alvarez Status:REG ER Location: ED HPI History of Present Illness Chief Complaint: Shortness of Breath PFSH PFSH Medical History Anxiety 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 Reviewed recent hospitalization. Patient was admitted to [facility] from 06/16/2025 until 06/25/2025 for acute on chronic respiratory failure hypoxia. Acute pulmonary edema, NSTEMI, COPD exacerbation. This time patient suffered respiratory failure required mechanical ventilation. Factors affecting care: As per HPI Social determinants of health: none History obtained from others: EMS Consults: Internal Medicine (Dr. Haile) [facility] Narrative: The patient was initially hypertensive [...] appropriate for admission here at [facility] to intensive care unit. Dr. Hess [...] to ICU This note was generated with LYSOGENE dictation software. It may contain incorrectwords, spelling, [...] Provider: Alfonso Ozuna NP Referrals: Alfonso Ozuna RN VASCULAR, RN VASCULAR-C [Primary Care Provider, Family Practice] Print Language: Djiboutian What to do if you have Problems For any increased pain, shortness of breath, bleeding, nausea or vomiting, chestpain, or any unexpected problems, contact your Primary Care Provider. Call [facility] ([phone]) or report to the closest Emergency Room. Call 911 if necessary. 07/16/25 0703 <Electronically signed by Bernardo Sharif DO> Cosigner Signature (if applicable): CC: SEUN Ozuna ~ Signed [facility] Work Phone: Evaluation note* Diagnosis Chronic obstructive pulmonary disease, unspecified COPD type (CMS/HCC)- Primary 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, unspecified vessel or lesion type (CMS/HCC) Primary hypertension Unspecified essential hypertension Congestive heart failure, unspecified HF chronicity, unspecified heart failure type (CMS/HCC) documented in this encounter [facility] Work Phone: Evaluation note* Diagnosis Primary hypertension- Primary Unspecified essential hypertension Congestive heart failure, unspecified HF chronicity, unspecified heart failure type 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, unspecified vessel or lesion type Chronic obstructive pulmonary disease, unspecified COPD type (Multi) Health maintenance examination Unspecified general medical examination documented in this encounter [facility] Work Phone: Evaluation note* Diagnosis Onset Date [...] Septembe r 2024 6:21am [facility] Work Phone: Hospital course Narrative No data available for this section [facility] Progress note Author Gerard Santos [facility] Note Date/Time July 16, 2025 12:12pm [facility] Medical Records Department [address] [place] [address] Progress Note - Hospitalist 07/16/25 1200 MR#: [id number] Acct: [id number] Name: ZABRINA HSU Rep #:[id number] : [...] 30.6 L, Lymph % (Auto) 56.5 H, Cloud % (Auto) 6.4, Eos % (Auto) 2.7, [...] AST 158 H, ALT 118 H, Alkaline Jmjfwmkeroq374 H, Total Creatine Kinase 126, Troponin T [...] Clarity Clear, Urine pH 7.0, Ur Specific [place] 1.005, Urine Protein 30 H, Urine Glucose [...] position No suspicious adenopathy Degenerative bony changes [place] Alert: ET tube tip in the SADAF The critical findings in the findings and impression above were relayed directlyby me by telephone to Bernardo Sharif on 07/16/2025 at 6:56 am with readback verification. Reading Location: [id number] Echocardiogram 07/16/25 06:31 Interpretation Summary Mild concentric [...] Diffuse atherosclerosis Degenerative bony changes Reading Location: [facility] Chest X-Ray 07/16/25 09:05 IMPRESSION: Tubes [...] (if applicable): CC: ~ Signed [facility] Work Phone: Progress note Author Gerard Santos [facility] Note Date/Time July 17, 2025 12:53pm [facility] Medical Records Department [address] [place] [address] Progress Note - Hospitalist 07/17/25703 MR#: [id number] Acct: [id number] Name: ZABRINA HSU Rep #:[id number] : [...] Clarity Clear, Urine pH 7.0, Ur Specific [place] 1.005, Urine Protein 30 H, Urine Glucose [...] Diffuse atherosclerosis Degenerative bony changes Reading Location: [id number] Chest X-Ray 07/16/25 09:05 IMPRESSION: Tubes and [...] at bedside. Charges/Coding Visit Charges Inpatient E&M: 66599 Subs Hosp L2 07/17/25 1253 <Electronically signed by Gerard Santos DO> Cosigner Signature (if applicable): CC: ~ Signed [facility] Work Phone: Progress note Author Eleazar Valle [facility] Note Date/Time July 17, 2025 10:00am [facility] Medical Records Department [address] [place] [address] Progress Note - [employer] Technician 07/17/25 0737 MR#: [id number] Acct: [id number] Name: ZABRINA HSU Rep #:[id number] : [...] Clarity Clear, Urine pH 7.0, Ur Specific [place] 1.005, Urine Protein 30 H, Urine Glucose [...] in the left upper lung. Reading Location: [facility] Chest X-Ray 07/17/25 05:10 IMPRESSION: Tubes and lines in position. There are perihilar infiltrates in the right and left, improved. Reading Location: [facility] Physical Exam Const Constitutional Narrative: The patient [...] sedated on vent Charges/Coding Procedures Hospitalists Procedures: 95017 Critical Care 1st Hr 07/17/25 1000 <Electronically signed by Eleazar Brown DO> Cosigner Signature (if applicable): CC: ~ Signed [facility] Work Phone: Progress note Author Eleazar Valle [facility] Note Date/Time July 18, 2025 9:00am [facility] Medical Records Department [address] [place] [address] Progress Note - [employer] Technician 07/18/25 0739 MR#: [id number] Acct: [id number] Name: ZABRINA HSU Rep #:[id number] : [...] RDW Coeff of Shivam 15.1 H, Plt [id number], MPV 9.7, Immature Gran % (Auto) 0.400, Neut % (Auto) 84.1 H, Lymph % (Auto)9.1 L, Cloud % (Auto) 6.3, Eos % (Auto) 0.0, [...] 88.5 H, Lymph % (Auto) 5.9 L, Cloud % (Auto) 4.7, Eos % (Auto) 0.0, [...] in the left upper lung. Reading Location: [facility] Chest X-Ray 07/17/25 05:10 IMPRESSION: Tubes and lines in position. There are perihilar infiltrates in the right and left, improved. Reading [facility] Physical Exam Const Constitutional Narrative: The patient [...] sedated on vent Charges/Coding Procedures Hospitalists Procedures: 36249 Critical Care 1st Hr 07/18/25 0900 <Electronically signed by Eleazar Valle DO> Cosigner Signature (if applicable): CC: ~ Signed [facility] Work Phone: Progress note Author Gerard Santos [facility] Note Date/Time July 18, 2025 12:30pm [facility] Medical Records Department [address] [place] [address] Progress Note - Hospitalist 07/18/25806 MR#: [id number] Acct: [id number] Name: ZABRINA HSU Rep #:[id number] : [...] RDW Coeff of Shivam 15.1 H, Plt Rqtto341, MPV 9.7, Immature Gran % (Auto) 0.400, Neut % (Auto) 84.1 H, Lymph % (Auto)9.1 L, Cloud % (Auto) 6.3, Eos % (Auto) 0.0, [...] 88.5 H, Lymph % (Auto) 5.9 L, Cloud % (Auto) 4.7, Eos % (Auto) 0.0, [...] IV daily. Charges/Coding Visit Charges Inpatient E&M: 20138 Subs Hosp L2 07/18/25 1230 <Electronically signed by Gerard Santos DO> Cosigner Signature (if applicable): CC: ~ Signed [facility] Work Phone: Progress note Author Gerard Santos [facility] Note Date/Time July 19, 2025 12:35pm [facility] Medical Records Department [address] [place] [address] Progress Note - Hospitalist 07/19/25 0758 MR#: [id number] Acct: [id number] Name: ZABRINA HSU Rep #:[id number] : 1955 70 From: Gerard Santos DO PCP: Alfonso Ozuna RN VASCULARNuvia Status:ADM IN Location: ICU ICU01-1 Reason for [...] 90.1 H, Lymph % (Auto) 4.7 L, Cloud % (Auto) 4.3, Eos % (Auto) 0.1, [...] in perihilar densities. Reading Location: [facility] Physical Exam Const Constitutional Narrative: intubated. sedated. [...] IV daily. Charges/Coding Visit Charges Inpatient E&M: 07521 Subs Hosp L2 07/19/25 1235 <Electronically signed by Gerard Santos DO> Cosigner Signature (if applicable): CC: ~ Signed [facility] Work Phone: Progress note Author Reid Murillo [facility] Note Date/Time July 19, 2025 11:55am [facility] Medical Records Department [address] [place] [address] Progress Note - [employer]irdrop Systems Technician 07/19/25 1144 MR#: [id number] Acct: [id number] Name: ZABRINA HSU Rep #:[id number] : [...] 07/16/25 07:59 07/19/25 07:27 IV 0 mls/hr .[id number] PRN Infusion Saline Flush Sodium Chloride 250 mls @ 15 mls/hr 07/16/25 07:59 IV .G68Q16F PRN Additional IVPB Infusion Fentanyl 100 mls [...] 11:29 Sodium Chloride CONT INF 0.9 mcg/kg/hr .[id number] TIMOTHY 11.4 mls/hr Protocol Titration 0.5 MCG/KG/HR Enteral Nutritional Formula 1,000 mls @ 45 mls/hr 07/17/25 10:05 07/19/25 09:30 Vital Af 1.2 Blake Liquid GT 45 mls/hr .[id number] TIMOTHY Administration Propofol 1,000 mg in 100 [...] Vancomycin Trough/Random Due MC 07/20/25 12:30 DAILY [facility] Lab / Micro Data Attestation: [...] 90.1 H, Lymph % (Auto) 4.7 L, Cloud % (Auto) 4.3, Eos % (Auto) 0.1, [...] in perihilar densities. Reading Location: [facility] Assessment and Plan . Assessment and plan: [facility] Medical Records Department [address] [place] [address] Progress Note - [employer]irdrop Systems Technician 07/18/25 0739 MR#: [id number] Acct: [id number] Name: ZABRINA HSU Rep #: [id number] : 1955 70 From: Eleazar Valle DO [...] (if applicable): CC: ~ Signed [facility] Work Phone: Progress note Author Gerard Santos [facility] Note Date/Time July 20, 2025 11:57am [facility] Medical Records Department [address] [place] [address] Progress Note - Hospitalist 07/20/25835 MR#: [id number] Acct: [id number] Name: ZABRINA HSU Rep #:[id number] : [...] (Auto) 89.3 H, Lymph % (Auto)5.2 L, Cloud % (Auto) 4.5, Eos % (Auto) 0.0, [...] IV daily. Charges/Coding Visit Charges Inpatient E&M: 90866 Subs Hosp L2 07/20/25 1157 <Electronically signed by Gerard Santos DO> Cosigner Signature (if applicable): CC: ~ Signed [facility] Work Phone: Progress note Author Reid Murillo [facility] Note Date/Time July 20, 2025 9:07am [facility] Medical Records Department [address] [place] [address] Progress Note - Airdrop Systems Technician 07/20/25899 MR#: [id number] Acct: [id number] Name: ZABRINA HSU Rep #:[id number] : [...] 07/16/25 07:59 07/20/25 06:02 IV 0 mls/hr .[id number] PRN Infusion Saline Flush Sodium Chloride 250 mls @ 15 mls/hr 07/16/25 07:59 IV .A88R21P PRN Additional IVPB Infusion Fentanyl 100 mls [...] Af 1.2 Blake Liquid GT Not Given .W46E35X TIMOTHY Propofol 1,000 mg in 100 mls @ 3.06 mls/hr 07/18/25 01:15 07/20/25 00:41 Diprivan CONT INF Not Given .Q12H TIMOTHY Protocol 10 MCG/KG/MIN Vancomycin HCl 1,250 mg/ 275 mls @ 167 mls/hr 07/18/25 12:00 07/19/25 13:10 Sodium Chloride IV Infused Q24H TIMOTHY Infusion Dexmedetomidine HCl 1,000 mcg/ 250 mls @ 6.375 mls/hr 07/19/25 22:00 07/20/2507:00 Sodium Chloride CONT INF 1.5 mcg/kg/hr .G97U97A TIMOTHY 19.1 mls/hr Protocol Titration 0.5 MCG/KG/HR [...] 10:00 Quetiapine 25 Mg Tablet GT BID [facility] Protocol Sodium Chloride 10 - [...] (Auto) 89.3 H, Lymph % (Auto)5.2 L, Cloud % (Auto) 4.5, Eos % (Auto) 0.0, [...] (if applicable): CC: ~ Signed [facility] Work Phone: Progress note Author Eleazar Valle [facility] Note Date/Time July 21, 2025 10:38am [facility] Medical Records Department [address] [place] [address] Progress Note - Airdrop Systems Technician 07/21/25 0734 MR#: [id number] Acct: [id number] Name: ZABRINA HSU Rep #:[id number] : [...] 83.2 H, Lymph % (Auto) 8.8 L, Cloud % (Auto) 5.8, Eos % (Auto) 0.1, [...] in the left upper lung. Reading Location: [facility] Chest X-Ray 07/17/25 05:10 IMPRESSION: Tubes and lines in position. There are perihilar infiltrates in the right and left, improved. Reading Location: [facility] Physical Exam Const Constitutional Narrative: The patient [...] follow simple commands. Charges/Coding Procedures Hospitalists Procedures: 20411 Critical Care 1st Hr 07/21/25 1038 <Electronically signed by Eleazar Valle DO> Cosigner Signature (if applicable): CC: ~ Signed [facility] Work Phone: Progress note Author Renee Encarnacion [facility] Note Date/Time July 21, 2025 5:28pm [facility] Medical Records Department [address] [place] [address] Progress Note 07/21/25 1406 MR#: [id number] Acct: [id number] Name: ZABRINA HSU Rep #:[id number] : [...] 83.2 H, Lymph % (Auto) 8.8 L, Cloud % (Auto) 5.8, Eos % (Auto) 0.1, [...] prophylaxis: Lovenox Charges/Coding Visit Charges Inpatient E&M: 13959 Subs Hosp L2 07/21/25 8043 <Electronically signed by Renee Encarnacion MD> Renee Encarnacion MD Cosigner Signature (if applicable): CC: ~ Signed [facility] Work Phone: progress note Author Earline Camargo [facility] Note Date/Time July 21, 2025 9:09pm [facility] Medical Records Department [address] [place] [address] Progress Note - Hospitalist 07/21/252058 MR#: [id number] Acct: [id number] Name: ZABRINA HSU Rep #:[id number] : [...] 0.33 07/21/252108 <Electronically signed by Earline Camargo RN VASCULAR-C> Cosigner Signature (if applicable): CC: ~ Signed [facility] Work Phone: Proasvtj note Author Eleazar Valle [facility] Note Date/Time July 22, 2025 8:48am [facility] Medical Records Department [address] [facility] [address] Progress Note - [employer]ird[employer] Systems Technician 07/22/25 0843 MR#: [id number] Acct: [id number] Name: ZABRINA HSU Rep #:[id number] : [...] of diet. This note was generated with Bolt HRation software. It may contain incorrectwords, spelling, and [...] 84.7 H, Lymph % (Auto) 8.4 L, Cloud % (Auto) 4.1, Eos % (Auto) 0.0, [...] in the left upper lung. Reading Location: [facility] Chest X-Ray 07/17/25 05:10 IMPRESSION: Tubes and lines in position. There are perihilar infiltrates in the right and left, improved. Reading Location: [facility] Physical Exam Const alert, oriented x3 and [...] affect normal Charges/Coding Visit Charges Inpatient E&M: 46413 Subs Hosp L3 07/22/25 0848 <Electronically signed by Eleazar Valle DO> Cosigner Signature (if applicable): CC: ~ Signed [facility] Work Phone: Progress note Author Renee Encarnacion [facility] Note Date/Time July 22, 2025 6:37pm [facility] Medical Records Department [address] [place] [address] Progress Note 07/22/25 1112 MR#: [id number] Acct: [id number] Name: ZABRINA HSU Rep #:[id number] : [...] 84.7 H, Lymph % (Auto) 8.4 L, Cloud % (Auto) 4.1, Eos % (Auto) 0.0, [...] prophylaxis: Lovenox Charges/Coding Visit Charges Inpatient E&M: 35111 Subs Hosp L2 07/22/25 175 <Electronically signed [...] applicable): Date cc: ~* Signed [facility] Work Phone: Reason for referral (narrative)* Consultation (Routine) - Authorized Specialty Diagnoses / Procedures Referred By Contac t Referred To Contact Primary Care Procedures Follow Up In Primary Care - Established Elvin Blanc PA-C [address] [facility] [place] [address] Referral ID Status Reason Start Date Expiration Date V isits Requested Visits Authorized [id number] Authorized 09/18/2023 09/17/2024 1 1 [facility] Work Phone: Reason for referral (narrative)No reason for referral information availableWSelect [facility] [place] Work Phone: Summary Purpose Family History No Family History Records Found Relationship Condition Age at Onset Recorded Date/T dajuan mother Diabetes mellitus Unknown Advance Directives No Advanced Directives Records Found Advance Directive Response Recorded Date/ Time Do you have a Healthcare Power of Concrete Grinder Operator? No July 16, 2025 7:58am Chief Complaint and Reason for Visit Chief Complaint Admit Date AE COPD, EGKEA-IV-ZBZFQKI RESP FAILURE S [facility] 2024 6:21am AE COPD, VWTIK-WV-JGUVXDH RESP FAILURE S [facility] 2024 8:12am AE COPD, CBOPD-DM-AEIMFGZ RESP FAILURE S [facility] 2024 12:00pm AE COPD, WVXUT-XQ-RMJRQIP RESP FAILURE S [facility] 2024 7:04am AE COPD, RFUPU-CK-JWNNTPH RESP FAILURE S [facility] 2024 7:37am AE COPD, FDXEP-HP-YPPBOSA RESP FAILURE S [facility] 2024 7:39am AE COPD, LEMJY-LW-MZFUQHX RESP FAILURE S [facility] 2024 8:07am AE COPD, TAFJJ-EH-DNYIBRF RESP FAILURE S [facility] 2024 7:58am AE COPD, CEWCC-EE-JPFEQAW RESP FAILURE S [facility] 2024 8:36am AE COPD, YXSLJ-JS-YWSFBBR RESP FAILURE S [facility] 2024 7:34am AE COPD, PDUSC-BI-VUYHFJH RESP FAILURE S [facility] 2024 2:06pm AE COPD, EZMSU-ZU-XJBJLBJ RESP FAILURE S [facility]2024 8:43am AE COPD, RNJHK-NL-WRPVZGN RESP FAILURE S [facility] 2024 11:12am AE COPD, RZBAF-LC-HQVCCVT RESP FAILURE S [facility] 2024 12:15pm Reason for Visit Admit Date Acute hypoxic on chronic hypercapnic res piratory failure July 16, 2025 6:21am Acute respiratory failure with hypoxia a nd hypercapnia July 16, 2025 6:21am Counseling regarding goals of care Dequan [facility] 2024 6:21am Elevated troponin July 16, 2025 [...] 6:21am Chief Complaint Admit Date AE COPD, NXQVM-LJ-SWXOQIW RESP FAILURE S [facility]2024 6:21am AE COPD, GBBAD-ZC-JGUQDVS RESP FAILURE S [facility] 2024 8:12am AE COPD, QWEUG-YJ-ZZLORDI RESP FAILURE S [facility] 2024 12:00pm AE COPD, YQAOD-NV-KGFHFIE RESP FAILURE S [facility]2024 7:04am AE COPD, VZCQO-SE-MJYMAGB RESP FAILURE S [facility] 2024 7:37am AE COPD, CFYOO-JL-GFXWRHK RESP FAILURE S [facility] 2024 7:39am AE COPD, JPTAP-FA-TKZJKUU RESP FAILURE S [facility] 2024 8:07am AE COPD, EELAH-RA-WUBPKXV RESP FAILURE S eptember 2024 7:58am AE COPD, EUPHA-GM-UPSRWRI RESP FAILURE S eptember 2024 8:36am AE COPD, NJYTZ-VY-MJPSUVC RESP FAILURE S eptember 2024 7:34am AE COPD, RWXYE-GP-FGVYXCM RESP FAILURE S eptember 2024 2:06pm AE COPD, TOWKU-GJ-CHKSXCF RESP FAILURE S eptember 2024 8:43am AE COPD, IQDNW-RZ-FQVDGFG RESP FAILURE S eptember 2024 11:12am AE COPD, KZPOS-DQ-IEILRZU RESP FAILURE S eptember 2024 12:15pm AE COPD, IFMXF-XS-SKIHYDS RESP FAILURE O ctober 2024 7:38am AE COPD, KONTU-SG-OFSAIKR RESP FAILURE O ctober 2024 12:12pm AE COPD, QWYBX-ST-PIKUJPS RESP FAILURE O ctober 2024 5:12pm AE COPD, IEHZX-TU-MLYMVRG RESP FAILURE O ctober 2024 3:15pm AE COPD, JQHCX-UD-RMKDIMC RESP FAILURE O ctober 2024 12:43pm AE COPD, QPUCS-OG-UNLBRBV RESP FAILURE O ctober 2024 4:09pm Reason [...] section and content) DATE CREATED AUTHOR 11/04/2020 [facility] DATE CREATED AUTHOR AUTHOR'S ORGANIZ ATION 09/03/2023 [facility] ([place] DATE CREATED AUTHOR AUTHOR'S ORGANIZ ATION 09/22/2023 [facility] [place] DATE CREATED AUTHOR AUTHOR'S ORGANIZ ATION 07/10/2025 [facility] DATE CREATED AUTHOR AUTHOR'S ORGANIZ ATION 07/11/2025 [facility] DATE CREATED AUTHOR AUTHOR'S ORGANIZ ATION 08/25/2025 [facility] DATE CREATED AUTHOR AUTHOR'S ORGANIZ ATION 08/27/2025 [facility] Patient Care team informatio n (unrecognized section and content) 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 Specialty Start Date End Date Elvin Blanc PA-C [address] [facility] [place] [address] PCP - General Internal Medicine 09/12/23 Fercho Villaseñor DO [address] [facility] [place] [address] PCP - [employer] PCP 07/23/23 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 Tess iDetrich MD Nurse Practitioner Active St art: July [...] Active Start: July 16, 2025 Apple Carvalho RN VASCULAR-C Nurse Practitioner Active Start: June Team Status: Active Member Role/Relationship Status Renita Ozuna NP, RN VASCULAR-C Primary care physician Active Start: July 16, [...] Active Member Role/Relationship Status Dates Alfonso Ozuna RN VASCULAR, RN VASCULAR-C Primary care physician Active Start: July 16, 2025 Dr. Dashawn Christiansen MD Attending physician Active Start: July 16, 2025 Team Status: Active Member Role/Relationship Status Dates Alfonso Ozuna RN VASCULAR, RN VASCULAR-C Primary care physician Active Start: July 16, [...] Active Member Role/Relationship Status Dates Alfonso Ozuna RN VASCULAR, RN VASCULAR-C Primary care physician Active Start: July 17, [...] Active Member Role/Relationship Status Dates Alfonso Ozuna RN VASCULAR, RN VASCULAR-C Primary care physician Active Start: July 17, 2025 Dr. Bernardo Sharif , DO Emergency Departm ent Physician Active Start: July 17, 2025 Dr. Jack Znuiga , DO Admitting physician Active Start: July [...] Practitioner Active Start: July 17, 2025 Dr. Dvaon Mcguire MD Nurse Practitioner Active Start: July 17, 2025 Dr. Catia Mercer MD Nurse Practitioner Active Start: June Dr. Mau Hoover MD Nurse Practitioner Active Start: July 17, 2025 Dr. Gerard Santos , DO Nurse Practitioner Active Start: July 17, 2025 Team Status: Active Member Role/Relationship Status Renita Ozuna RN VASCULAR, RN VASCULAR-C Primary care physician Active Start: July 18, [...] Active Member Role/Relationship Status Dates Alfonso Ozuna RN VASCULAR, RN VASCULAR-C Primary care physician Active Start: July 18, [...] Status: Active Member Role/Relationship Status Renita Ozuna RN VASCULAR, RN VASCULAR-C Primary care physician Active Start: July 19, [...] Member Role/Relationship Status Dates Alfonso Ozuna NP, RN VASCULAR-C Primary care physician Active Start: July 20, [...] Active Member Role/Relationship Status Dates Alfonso Ozuna RN VASCULAR, RN VASCULAR-C Primary care physician Active Start: July 21, [...] Active Member Role/Relationship Status Dates Alfonso Ozuna RN VASCULAR, RN VASCULAR-C Primary care physician Active Start: July 21, [...] Status: Active Member Role/Relationship Status Renita Ozuna RN VASCULAR, RN VASCULAR-C Primary care physician Active Start: July 22, [...] Member Role/Relationship Status Dates Alfonso Ozuna NP, RN VASCULAR-C Primary care physician Active Start: July 22, [...] Member Role/Relationship Status Dates Alfonso Ozuna NP, RN VASCULAR-C Primary care physician Active Start: July 22, [...] S tart: July 22, 2025 Dr. Ricardo aGrcia MD Nurse Practitioner Active St art: July 22, 2025 Dr. Kennedy Becerra MD Nurse Practitioner Active S tart: July 22, 2025 Dr. Laura Rodas MD Nurse Practitioner Active Start: July 22, 2025 Dr. Ruth Altamirano MD Nurse Practitioner Active Start: July 22, 2025 Dr. Deepa Blanoc MD Nurse Practitioner Active Start: July 22, 2025 Dr. Taran Garcia MD Nurse Practitioner Active Start: July 22, 2025 Dr. Ruufs Barker MD Nurse Practitioner Active Start: July [...] Active Start: July 22, 2025 Apple Carvalho RN VASCULAR-C Attending physician Active Start: June Apple Carvalho NP-C Nurse Practitioner Active Start: June Team Status: Inactive Member Role/Relationship Status Renita Ozuna NP, RN VASCULAR-C Primary care physician Active Start: July 16, [...] End: July 26, 2025 Earline Camargo , RN VASCULAR-C Nurse Practitioner Active S tart: July 16, 2025 End: July 26, 2025 Analy Davis RN VASCULAR-C Nurse Practitioner Active Start: July 16, 2025 End: July 26, 2025 SHEILA Ellington Nurse Practitioner Active Start: July 16, 2025 End: July 26, 2025 Apple Carvalho RN VASCULAR-C Nurse Practitioner Active Start: June End: July [...] Status: Active Member Role/Relationship Status Renita Ozuna RN VASCULAR, RN VASCULAR-C Primary care physician Active Start: July 16, [...] Status: Active Member Role/Relationship Status Renita Ozuna RN VASCULAR, RN VASCULAR-C Primary care physician Active Start: July 17, [...] Active Member Role/Relationship Status Dates Alfonso Ozuna RN VASCULAR, RN VASCULAR-C Primary care physician Active Start: July 18, [...] Active Member Role/Relationship Status Dates Alfonso Ozuna RN VASCULAR, RN VASCULAR-C Primary care physician Active Start: July 21, [...] Status: Active Member Role/Relationship Status Renita Ozuna RN VASCULAR, RN VASCULAR-C Primary care physician Active Start: July 22, 2025 Dr. Bernardo Sharif , Emergency Departm ent Physician Active Start: July 22, 2025 Dr. Jack Zuniga , Admitting physician Active Start: July 22, 2025 Dr. Jack Zuniga , Nurse Practitioner Active Start: July 22, 2025 Dr. Marcos lAfredo MD Nurse Practitioner Active Start: July 22, [...] Member Role/Relationship Status Renita Alfonso Ozuna PANKAJ, RN VASCULAR-C Primary care physician Active Start: July 23, [...] Active Start: July 23, 2025 Apple Carvalho RN VASCULAR-C Nurse Practitioner Active Start: July 23, 2025 Team Status: Active Member Role/Relationship Status Dates Alfonso Ozuna NP, RN VASCULAR-C Primary care physician Active Start: July 23, [...] Active Start: July 23, 2025 Apple Carvalho RN VASCULAR-C Nurse Practitioner Active Start: July 23, 2025 [...] Active Member Role/Relationship Status Renita Ozuna NP, RN VASCULAR-C Primary care physician Active Start: July 24, [...] tart: July 24, 2025 Analy Davis , RN VASCULAR-C Nurse Practitioner Active Start: July 24, 2025 [...] Active Member Role/Relationship Status Dates Alfonso Ozuna RN VASCULAR, RN VASCULAR-C Primary care physician Active Start: July 25, [...] Active Start: July 25, 2025 Earline Camargo RN VASCULAR-C Nurse Practitioner Active S tart: July 25, 2025 Analy Davis RN VASCULAR-C Nurse Practitioner Active Start: July 25, 2025 SHEILA Ellington Nurse Practitioner Active Start: July 25, 2025 Apple Carvalho RN VASCULAR-C Nurse Practitioner Active Start: July 25, 2025 [...] Active Start: July 25, 2025 Dr. Rufus Barkre MD Nurse Practitioner Active Start: July 25, [...] Member Role/Relationship Status Dates Alfonso Ozuna NP, RN VASCULAR-C Primary care physician Active Start: July 26, [...] Active Member Role/Relationship Status Dates Alfonso Ozuna RN VASCULAR, RN VASCULAR-C Primary care physician Active Start: July 26, [...] Active Start: July 26, 2025 Earline Camargo RN VASCULAR-C Nurse Practitioner Active S tart: July 26, 2025 Analy Davis RN VASCULAR-C Nurse Practitioner Active Start: July 26, 2025 SHEILA Ellington Nurse Practitioner Active Start: July 26, 2025 Apple Carvalho RN VASCULAR-C Nurse Practitioner Active Start: July 26, 2025 Dr. Marcos Alfredo MD Nurse Practitioner Active Start: July 26, 2025 Dr. aMrk Garrido MD Nurse Practitioner Active Sta rt: [...] as a new patient and transferring from [place].Patient dx with COPD, seen in ER last [...] BE BASED ON THE PRIMARY CLINICAL RECORDS. [employer] provides no warranty or guarantee of the accuracy or completeness of information in this document.
--- NOTE | 2025-10-07 23:43 | HP.PCM.HOS_ITS ---
HPI - General General Date of Admission: 10/07/25 HPI Narrative ZABRINA HSU, is a 70 F who presents to the hospital with shortness of breath. She was discharged yesterday on 5 days more of prednisone for COPD exacerbation, currently not on any oxygen. She presented with feeling shortness of breath though she is not requiring any oxygen. She was hypertensive with a slightly elevated troponin of no significance. She denies any chest pain. She states that she did not take any of her blood pressure medications today but cannot tell me why she did not take any of her blood pressure medications. She was given a dose of labetalol in the emergency room and the ER physician requested admission because of her elevated troponin secondary to hypertension. 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 Non-rheumatic mitral regurgitation Depression Anxiety Pulmonary hypertension Essential hypertension Pure hypercholesterolemia Atherosclerotic heart disease of [place] coronary artery without angina pectoris Home Medications ?Medication ?Instructions ?Recorded ?Last Taken ?Type aspirin 81 mg tablet,delayed 81 mg PO DAILY heart 06/2310/07/25 History release (Adult Low Dose Aspirin) atorvastatin 40 mg tablet 40 mg PO QHS cholestrol 06/2310/06/25 History oxybutynin chloride 10 mg 10 mg PO DAILY overactive bl add 07/08/19 10/07/25 History tablet,extended release 24 hr albuterol sulfate 90 mcg/actuation 2 puff inhalation Q 4H PRN 12/23/20 10/07/25 Rx aerosol inhaler (Ventolin HFA) shortness of breath or wheezing #8.5 grams brimonidine 0.2 % eye drops 1 drp ophthalmic (eye) ROCCO LY eyes 06/16/21 10/07/25 History dorzolamide 2 % eye drops 1 drp ophthalmic (eye) TID e yes 06/16/21 10/07/25 History lisinopril 20 mg tablet 20 mg PO DAILY #90 tabs 05/2410/07/25 Rx clopidogrel 75 mg tablet 75 mg PO DAILY heart 5 Unknown History furosemide 40 mg tablet 40 mg PO DAILY heart 5 10/07/25 History OXYGEN - Supplemental ([facility] COPD 07/18/25 Unknown Histo ry INFORMATIONAL USE ONLY) amlodipine 10 mg tablet 10 mg PO DAILY #30 tabs 02/1410/07/25 Rx metoprolol tartrate 50 mg tablet 50 mg PO BID #60 tabs 07/26/25 10/07/25 Rx potassium chloride 20 mEq 20 meq PO BID 10/03/2510/07 History tablet,extended release(part/cryst) prednisone 20 mg tablet 40 mg (2 x 20 mg) PO DAILY 5 days 10/06/25 10/07/25 Rx #10 tabs spironolactone 25 mg tablet 25 mg PO DAILY 10/07/25 History Allergy/AdvReac Type Severity Reaction Status Date / Time No Known Allergies Allergy Verified 10/07/25 19:57 Family History Mother Diabetes Father No problems noted. Surgical History History of coronary artery stent placement (01/02/17) History of hysterectomy Social History household members: spouse Smoking Status: Current every day smoker tobacco type: cigarettes Tobacco: How many years used: 46 second hand exposure: Yes alcohol intake: never substance use type: does not use caffeine: Yes Type: coffee ROS Constitutional Constitutional: Denies chills, fatigue, fever(s) or malaise Eyes Eyes: Denies blurry vision ENT HEENT: Denies headache(s) or nasal discharge Cardiovascular Cardiovascular: Denies chest pain, dyspnea on exertion or syncope Respiratory/Chest Respiratory/Chest: Reports shortness of breath at rest and shortness of breath with exertion; Denies cough Gastrointestinal Gastrointestinal: Denies constipation, diarrhea, nausea or vomiting Genitourinary Genitourinary: Denies dysuria Neurologic Neurologic: Denies focal weakness, numbness or tremor(s) Psychiatric Psychiatric: Denies anxiety or depression Vital Signs Vital Signs Vital Signs: 10/07/25 19:59 10/07/25 20:33 10/07/25 20:34 Temperature 99 F Temperature Source Oral Pulse Rate 96 99 Respiratory Rate 22 H Blood Pressure 210/108 H 165/88 H Blood Pressure Mean 142 Pulse Ox 98 Oxygen Delivery Method Room Air Room Air 10/07/25 20:40 10/07/25 20:45 10/07/25 20:45 Temperature Temperature Source Pulse Rate 105 H Respiratory Rate 33 H Blood Pressure 155/70 H 155/70 H Blood Pressure Mean 93 93 Pulse Ox 98 98 Oxygen Delivery Method 10/07/25 21:00 10/07/25 21:15 10/07/25 21:30 Temperature Temperature Source Pulse Rate 118 H Respiratory Rate 19 H Blood Pressure Blood Pressure Mean Pulse Ox 100 100 100 Oxygen Delivery Method 10/07/25 21:45 10/07/25 21:56 10/07/25 22:00 Temperature Temperature Source Pulse Rate 107 H 110 H 104 H Respiratory Rate 28 H 24 H 22 H Blood Pressure 166/108 H Blood Pressure Mean 127 Pulse Ox 98 100 100 Oxygen Delivery Method Room Air 10/07/25 22:15 10/07/25 22:30 10/07/25 22:45 Temperature Temperature Source Pulse Rate 105 H 112 H 91 Respiratory Rate 24 H 27 H 34 H Blood Pressure 180/119 H Blood Pressure Mean 135 Pulse Ox 100 98 96 Oxygen Delivery Method Room Air 10/07/25 23:00 10/07/25 23:12 10/07/25 23:13 Temperature 97.6 F L Temperature Source Pulse Rate 92 92 Respiratory Rate 24 H 24 H Blood Pressure 192/85 H 192/85 H 195/126 H Blood Pressure Mean 114 120 149 Pulse Ox 97 97 Oxygen Delivery Method Room Air 10/07/25 23:21 Temperature Temperature Source Pulse Rate 90 Respiratory Rate 28 H Blood Pressure 173/97 H Blood Pressure Mean 122 Pulse Ox 96 Oxygen Delivery Method Room Air Weight Weight: 113 lb Body Mass Index (BMI) 19.3 Physical Exam Narrative General: Alert, Oriented x3, Cooperative, No apparent distress HEENT: Atraumatic, PERRLA, EOMI, Normocephalic Oral: Moist Mucosa Neck: Supple, No JVD Lungs: Diminished, Normal air movement, No rhonchi, No wheeze, No rales Cardiovascular: Regular rate, Regular Rhythm, Normal S1, Normal S2, No murmurs Abdomen: Soft, Non Tender, Non-Distended, No Hepato-splenomegaly Extremities: No edema, Capillary Refill Less than 3 Seconds Skin: No rashes, No breakdown Musculoskeletal: No Tenderness to Palpation of Joints or Extremities Neurological: No focal neurological deficits, moves all extremities Psych/Mental Status: Flat Results Lab / Micro Data 10/07/25 20:25 10/07/25 20:25 Labs: Laboratory Results - last 24 hr 10/07/25 20:25: WBC 6.9, RBC 4.14 L, Hgb 11.3 L, Hct 34.2 L, MCV 82.6, MCH 27.3, MCHC 33.0, RDW Std Deviation 49.1 H, RDW Coeff of Shivam 16.3 H, Plt Count 475 H, MPV 9.9, Immature Gran % (Auto) 0.900, Neut % (Auto) 79.5 H, Lymph % (Auto) 13.3 L, [place] % (Auto) 6.3, Eos % (Auto) 0.0, Baso % (Auto) 0.0, Absolute Neuts (auto) 5.5, Absolute Lymphs (auto) 0.92, Nucleated RBC % 0, Sodium 137, Potassium 3.8, Chloride 95 L, Carbon Dioxide 24.3, Anion Gap 18 H, BUN 30 H, Creatinine 1.02, E stim Creat Clear Calc 40.93 L, Est GFR (MDRD) Non-Af 59 L, BUN/Creatinine Ratio 29.3 H, Glucose 120 H, Calcium 9.5, Troponin T High Sens 110 H* D, NT pro BNP II 3583 H 10/07/25 22:36: Troponin T Hi Sens 2 Hr 106 H* Micro: Microbiology 10/07/25 20:34 Mucosa - Nose SARS-CoV-2, Influenza & RSV (PCR) - Final Imaging Radiology Impression Chest CTA 10/07/25 21:00 IMPRESSION: No evidence of acute pulmonary embolism. Severe centrilobular and moderate paraseptal emphysema, which likely accounts for the patient's shortness of breath. Cardiomegaly with coronary artery calcifications and moderate to severe systemic atherosclerosis, consistent with underlying cardiovascular disease. Right lower lobe calcified granulomas, compatible with prior granulomatous infection. Reading Location: [facility] Assessment & Plan Assessment/Plan (1) Elevated troponin level not due myocardial infarction: PLAN: Plan 1. Shortness of breath with an elevated troponin secondary to essential hypertension/HLD/CAD status post stent ? Blood pressures are a little bit elevated but secondary to the fact that she did not take her blood pressure medications today but she did take her prednisone, of note she has not had a normal troponin in our system ? BNP was also a little bit elevated but essentially baseline for her ? Troponin elevation is insignificant and not cardiac in origin EF is 65% based on echocardiogram on 10/03/2025 ? Will resume all of her home blood pressure medications and will not make adjustments ? She did receive 10 mg of IV labetalol in the emergency room ? CTA of the chest was negative for any acute pathology ? Continue with aspirin ? Continue with Lipitor 2. COPD with as needed oxygen requirements ? Currently on room air ? Continue with steroids and her inhaler DVT: Ambulation Charges/Coding Visit Charges Inpatient E&M: 09435 Init Hosp L2
[2025-10-08] VITALS (7 sets, daily range): BP systolic 103–180; BP diastolic 52–109; PULSE 70–75; RESP 16–18; TEMP 36.4–37.2; O2SAT 93–98; BMI 17.6
[2025-10-08 01:09] LABS: Troponin T High Sens 4 HR 132 ng/L (<=14)
[2025-10-08] MEDS: Aspirin E.C. 81 MG Tablet PO (09:27)
[2025-10-08] MEDS: BRIMONIDINE 0.2% 5ML BOTTLE 1 DRP OPHTHALMIC (09:27)
--- NOTE | 2025-10-08 12:54 | CASEMGMT ---
Social Work SW spoke with the patient and completed a SDOH. Patient reported her son currently helps with transportation. Patient reported she has Medicaid. SW explained she should have transportation through [facility] and should be able to use [facility]. SW gave her the phone number for [employer]. GHASSAN Anderson
--- NOTE | 2025-10-08 15:20 | PCM.DC ---
Discharge Instructions DC O2, CPAP, BIPAP needs Home O2 Discharge instructions: Yes Type of respiratory needs?: Oxygen Oxygen frequency: Continuous (Continue previous home oxygen prescription) Continuous oxygen liters per minute: 2 Dressing / Incision Discharge Activity: - (Increase activity as tolerated) Follow Up Care Test Results: Test results from this visit will be discussed in further detail at your follow-up appointment, if applicable. Discharge Plan Admission Admit Date/Time: 10/07/25 23:32 Primary Reason for Your Visit: High blood pressure and shortness of breath Attending Provider: Yanet Lopes Primary Care Provider: Melissa Ozuna NP Consulting Providers: Viktor Caba Instructions Patient Instructions: Controlling High Blood Pressure Additional Instructions / Restrictions: Your symptoms on presentation were caused by high blood pressure and with improvement in your blood pressure your symptoms resolved. It will be very important for you to take your medications as prescribed including your home blood pressure medications as prescribed. Please finish out your steroid prescription that you were discharged with and continue with all discharge instructions from your most recent hospitalization. -Please call your primary care provider's office upon discharge to schedule a hospital follow up within 1 week. -For any concerning signs or symptoms please call 911 or proceed to the nearest emergency department Discharge Orders/Prescriptions Prescriptions: Continued aspirin [Adult Low Dose Aspirin] 81 mg tablet,delayed release (DR/EC) 81 mg PO DAILY atorvastatin 40 mg tablet 40 mg PO QHS oxybutynin chloride 10 mg tablet extended release 24hr 10 mg PO DAILY albuterol sulfate [Ventolin HFA] 90 mcg/actuation HFA aerosol inhaler 2 puff INHALATION Q4H PRN (Reason: shortness of breath or wheezing) Qty: 8.5 6RF brimonidine 0.2 % drops 1 drp ophthalmic (eye) DAILY dorzolamide 2 % drops 1 drp ophthalmic (eye) TID lisinopril 20 mg tablet 20 mg PO DAILY Qty: 90 3RF spironolactone 25 mg tablet 25 mg PO DAILY Patient Comments: pt isnt sure if still taking furosemide 40 mg tablet 40 mg PO DAILY clopidogrel 75 mg tablet 75 mg PO DAILY OXYGEN - Supplemental ([facility] INFORMATIONAL USE ONLY) Patient Comments: pt states she uses 3L @ home and gets it through [facility] amlodipine 10 mg Tablet 10 mg PO DAILY Qty: 30 2RF metoprolol tartrate 50 mg Tablet 50 mg PO BID Qty: 60 2RF potassium chloride 20 mEq tablet,ER particles/crystals 20 meq PO BID prednisone 20 mg tablet 40 mg PO DAILY 5 Days Qty: 10 0RF Referrals / Follow Up: Melissa Ozuna NP, [employer] [Primary Care Provider, Family Practice] - Within 1 Week Disposition Disposition (needs filled in before D/C Order can be placed): Home Health Service
--- NOTE | 2025-10-08 15:25 | DS.PCM_ITS ---
Providers Date of Admission: 10/07/25 Date of Discharge: 10/08/25 Primary Care Physician: SEUN Alvarez Reason For Visit: HTN WITH SOB Diagnosis Discharge Diagnosis (1) Hypertensive emergency: Status: Acute Code(s): I16.1 - Hypertensive emergency (2) Elevated troponin level not due myocardial infarction: Status: Acute Code(s): R79.89 - Other specified abnormal findings of blood chemistry Plan #Hypertensive emergency due to medical noncomplaince # Chronic combined respiratory failure # Subacute ischemic infarcts # History of hypertension # History of coronary artery disease with stent Medications at Discharge Home Medications aspirin 81 mg tablet,delayed release (Adult Low Dose Aspirin) 81 mg PO DAILY heart 07/08/19 atorvastatin 40 mg tablet 40 mg PO QHS cholestrol 07/08/19 oxybutynin chloride 10 mg tablet,extended release 24 hr 10 mg PO DAILY overactive bladd 07/08/19 albuterol sulfate 90 mcg/actuation aerosol inhaler (Ventolin HFA) 2 puff inhalation Q4H PRN shortness of breath or wheezing #8.5 grams 12/23/20 brimonidine 0.2 % eye drops 1 drp ophthalmic (eye) DAILY eyes 06/16/21 dorzolamide 2 % eye drops 1 drp ophthalmic (eye) TID eyes 06/16/21 lisinopril 20 mg tablet 20 mg PO DAILY blood pressure #90 tabs 06/16/21 clopidogrel 75 mg tablet 75 mg PO DAILY heart 07/17/25 furosemide 40 mg tablet 40 mg PO DAILY heart 07/17/25 OXYGEN - Supplemental ([facility] INFORMATIONAL USE ONLY) COPD 07/18/25 amlodipine 10 mg tablet 10 mg PO DAILY blood pressure #30 tabs 07/26/25 metoprolol tartrate 50 mg tablet 50 mg PO BID blood pressure #60 tabs 07/26/25 potassium chloride 20 mEq tablet,extended release(part/cryst) 20 meq PO BID supplement 10/03/25 prednisone 20 mg tablet 40 mg (2 x 20 mg) PO DAILY inflammation 5 days #10 tabs 10/06/25 spironolactone 25 mg tablet 25 mg PO DAILY diuretic 10/07/25 Hospital Course Summary of Care Provided Minutes Spent on Discharge: 33 Hospital Course: Per HPI: ZABRINA HSU, is a 70 F who presents to the hospital with shortness of breath. She was discharged yesterday on 5 days more of prednisone for COPD exacerbation, currently not on any oxygen. She presented with feeling shortness of breath though she is not requiring any oxygen. She was hypertensive with a slightly elevated troponin of no significance. She denies any chest pain. She states that she did not take any of her blood pressure medications today but cannot tell me why she did not take any of her blood pressure medications. She was given a dose of labetalol in the emergency room and the ER physician requested admission because of her elevated troponin secondary to hypertension. INTERVAL HISTORY: Patient was continued on her home medications/given her home medications as she had not taken them the day she came in and her blood pressure improved and her symptoms completely resolved. Technically hypertensive emergency due to bump in her troponins and shortness of breath but denies current or any chest pain. Her shortness of breath completely resolved with taking her home medications. Patient did take her prednisone the day of presentation but not her antihypertensives, counseled the importance of compliance. Reviewed telemetry and patient still with sinus arrhythmia with occasional tachycardia that appears to be MAT but does have definite P waves. Did not appreciate any A-fib on telemetry. Given patient's symptoms completely resolved after taking her home medication with improvement in her blood pressure discussed discharge with her and she is comfortable with this plan. Patient to be discharged home on home medications while stressing the need for compliance. Patient to continue her steroid burst she was discharged with earlier this week. No new or acute complaints on day of discharge, no cough or further shortness of breath Physical Exam Narrative General: Alert, no apparent distress HEENT: Atraumatic, normocephalic Eyes: Anicteric, normal conjunctiva, extraocular movements grossly intact Neck: Supple Respiratory: Clear to auscultation bilaterally, normal respiratory effort Cardiovascular: Sinus arrhythmia on telemetry GI: Soft, nontender, nondistended Extremities: No edema Musculoskeletal: Moving all extremities Neuro: No overt focal neurological deficits Skin: No rashes appreciated Psych: Cooperative Weight / BMI Weight Weight: 46.7 kg Body Mass Index (BMI) 17.6 ABG / Lab / Microbiology Data 10/07/25 20:25 10/07/25 20:25 Laboratory: Laboratory Results - last 24 hr 10/07/25 20:25: WBC 6.9, RBC 4.14 L, Hgb 11.3 L, Hct 34.2 L, MCV 82.6, MCH 27.3, MCHC 33.0, RDW Std Deviation 49.1 H, RDW Coeff of Shivam 16.3 H, Plt Count 475 H, MPV 9.9, Immature Gran % (Auto) 0.900, Neut % (Auto) 79.5 H, Lymph % (Auto) 13.3 L, [place] % (Auto) 6.3, Eos % (Auto) 0.0, Baso % (Auto) 0.0, Absolute Neuts (auto) 5.5, Absolute Lymphs (auto) 0.92, Nucleated RBC % 0, Sodium 137, Potassium 3.8, Chloride 95 L, Carbon Dioxide 24.3, Anion Gap 18 H, BUN 30 H, Creatinine 1.02, E stim Creat Clear Calc 40.93 L, Est GFR (MDRD) Non-Af 59 L, BUN/Creatinine Ratio 29.3 H, Glucose 120 H, Calcium 9.5, Troponin T High Sens 110 H* D, NT pro BNP II 3583 H 10/07/25 22:36: Troponin T Hi Sens 2 Hr 106 H* 10/08/25 00:26: Troponin T Hi Sens 4Hr 132 H* Microbiology: Microbiology 10/07/25 20:34 Mucosa - Nose SARS-CoV-2, Influenza & RSV (PCR) - Final Radiography Diagnostic Testing: Radiology Impression Chest CTA 10/07/25 21:00 IMPRESSION: No evidence of acute pulmonary embolism. Severe centrilobular and moderate paraseptal emphysema, which likely accounts for the patient's shortness of breath. Cardiomegaly with coronary artery calcifications and moderate to severe systemic atherosclerosis, consistent with underlying cardiovascular disease. Right lower lobe calcified granulomas, compatible with prior granulomatous infection. Reading [facility] Instructions DC O2, CPAP, BIPAP Needs Home O2 Discharge instructions: Yes Type of respiratory needs?: Oxygen Oxygen frequency: Continuous (Continue previous home oxygen prescription) Continuous oxygen liters per minute: 2 DC home with Oxygen: Yes Home O2 Review: I have reviewed the oxygen testing, and the patient qualifies for home oxygen equipment and portability. The patient is mobile in the home and the community. Patient's Goals Of Care - F/U Goals Reviewed Goals of care reviewed with patient: NA-No significant change in clinical Status /major procedure scheduled Meaningful Use Info Meaningful Use Meaningful Use Diagnoses (Choose all that apply): None applicable Discharge Plan Admission Admit Date/Time: 10/07/25 23:32 Primary Reason for Your Visit: High blood pressure and shortness of breath Attending Provider: Yanet Lopes Primary Care Provider: Melissa Ozuna NP Consulting Providers: Viktor Caba Instructions Patient Instructions: Controlling High Blood Pressure Additional Instructions / Restrictions: Your symptoms on presentation were caused by high blood pressure and with improvement in your blood pressure your symptoms resolved. It will be very important for you to take your medications as prescribed including your home blood pressure medications as prescribed. Please finish out your steroid prescription that you were discharged with and continue with all discharge instructions from your most recent hospitalization. -Please call your primary care provider's office upon discharge to schedule a hospital follow up within 1 week. -For any concerning signs or symptoms please call 911 or proceed to the nearest emergency department Discharge Orders/Prescriptions Prescriptions: Continued aspirin [Adult Low Dose Aspirin] 81 mg tablet,delayed release (DR/EC) 81 mg PO DAILY atorvastatin 40 mg tablet 40 mg PO QHS oxybutynin chloride 10 mg tablet extended release 24hr 10 mg PO DAILY albuterol sulfate [Ventolin HFA] 90 mcg/actuation HFA aerosol inhaler 2 puff INHALATION Q4H PRN (Reason: shortness of breath or wheezing) Qty: 8.5 6RF brimonidine 0.2 % drops 1 drp ophthalmic (eye) DAILY dorzolamide 2 % drops 1 drp ophthalmic (eye) TID lisinopril 20 mg tablet 20 mg PO DAILY Qty: 90 3RF spironolactone 25 mg tablet 25 mg PO DAILY Patient Comments: pt isnt sure if still taking furosemide 40 mg tablet 40 mg PO DAILY clopidogrel 75 mg tablet 75 mg PO DAILY OXYGEN - Supplemental ([facility] INFORMATIONAL USE ONLY) Patient Comments: pt states she uses 3L @ home and gets it through [facility] amlodipine 10 mg Tablet 10 mg PO DAILY Qty: 30 2RF metoprolol tartrate 50 mg Tablet 50 mg PO BID Qty: 60 2RF potassium chloride 20 mEq tablet,ER particles/crystals 20 meq PO BID prednisone 20 mg tablet 40 mg PO DAILY 5 Days Qty: 10 0RF Referrals / Follow Up: Melissa Ozuna NP, [employer] [Primary Care Provider, Family Practice] - Within 1 Week Disposition Disposition (needs filled in before D/C Order can be placed): Home Health Service Charges/Coding Visit Charges Inpatient E&M: 39486 Disch Hosp >30min
--- NOTE | 2025-10-08 15:30 | CASEMGMT ---
Patient is was setup with [facility] on prior admission. Patient to return home with resumption of [facility]. GERARDO LENZ updated DC Design Transferrer to send updated clinicals and discharge paperwork to [facility].
--- NOTE | 2025-10-08 15:44 | CASEMGMT ---
Addendum entered by Nubia uHghes 10/09/25 12:09: Msg sent via [facility] from [facility]. They have been unable to contact pt and follow up with pcp has not been scheduled. Call placed to pt. [facility] contact info given with msg that she will need to schedule pcp appt. Original Note: Discharge Planning FERMIN referral sent via [facility] to [facility]. Nubia Hughes DC Planning Asst.
== END 2025-10-08 16:05 | disposition home health service (06) ==
LOC: ED 23:10 → PCU 23:36
PROVIDERS: Admitting Provider Family Medicine; Emergency Provider Emergency Medicine; PCP Nurse Practitioner Family; Visit Provider Internal Medicine
DX: I16.1 Hypertensive emergency (principal); J96.11 Chronic respiratory failure with hypoxia; I27.20 Pulmonary hypertension, unspecified; J44.9 Chronic obstructive pulmonary disease, unspecified; I48.0 Paroxysmal atrial fibrillation; I42.2 Other hypertrophic cardiomyopathy; Z79.899 Other long term (current) drug therapy; I25.10 Atherosclerotic heart disease of native coronary artery without angina pectoris; I10 Essential (primary) hypertension; E78.00 Pure hypercholesterolemia, unspecified; I49.8 Other specified cardiac arrhythmias; F17.210 Nicotine dependence, cigarettes, uncomplicated; R79.89 Other specified abnormal findings of blood chemistry; R06.02 Shortness of breath; Z91.199 Patient's noncompliance with other medical treatment and regimen due to unspecified reason; Z99.81 Dependence on supplemental oxygen; Z79.82 Long term (current) use of aspirin
CPT/HCPCS: 71275; 80048; 83880; 84484; 85025; 87631; 93005; 96374; 99221; 99285; Q9967; A4216; G0378